=== PATIENT | male | born 1950 | race Caucasian/White ===

== ENCOUNTER 2022-11-19 08:32 | Outpatient (RCR) | payer MEDICARE, SELFPAY | END 2022-11-25 14:00 | disposition home or self-care (01) | LOC: PT 08:32 | PROVIDERS: PCP Family Medicine; Visit Provider Neurological Surgery | DX: M47.812 Spondylosis without myelopathy or radiculopathy, cervical region (principal) | CPT/HCPCS: 97110 ==

== ENCOUNTER 2022-11-20 07:48 | Outpatient (OUT) | payer MEDICARE, SELFPAY ==
--- NOTE | 2022-11-20 11:40 | P.HP_ITS ---
Consult Note: HPI Data of Consult Patient: new to practice Consult date: 11/20/22 Requesting Physician: Tamiko Landa MD Primary Care Provider: Deandre Staley MD Consult Narrative Reason for consult: Neck, low back, leg pain bilaterally Narrative: this is a pleasant 72-year-old gentleman who presents for evaluation. He notes pain throughout his axial neck, as well as low back pain that radiates into the bilateral lower extremities. He notes increasing difficulty with ambulation. He has a history of fusion at C7-T1. He has cervical and lumbar x-rays available for review, which are significant for multilevel degenerative disc disease and facet arthropathy throughout the cervical spine, as well as degenerative changes throughout the lumbar spine. He has tried various medications the past, with varying levels of relief. He is engaged in physical therapy and home exercises, which do not provide relief. He otherwise denies adverse medication side effects or loss of bowel or bladder control. cc:: CC: Tamiko Landa MD Review of Systems ROS Status of ROS 10 or more systems reviewed and unremarkable except as noted in history and below Exam Constitutional: Documenting provider has reviewed patient's vital signs: yes Common normals: no apparent distress and oriented x3 Neck & C-Spine: Other: Tenderness to palpation throughout the cervical spine. Pain is elicited with flexion, extension, and lateral rotation of the cervical spine. Facet loading maneuvers are positive bilaterally. Back & Pelvis: Thoracic spine/upper back: normal to inspection Lumbar spine/lower back: lumbar spinal tenderness and paraspinal muscle tenderness Sacroiliac joints: SI joint(s) abnormal Other: Tenderness to palpation throughout the lumbar spine. Facet loading maneuvers are positive bilaterally. Pain elicited with flexion, extension, and lateral rotation of the lumbar spine. Strength noted to be unremarkable throughout the bilateral lower extremities except for decreased strength rated at 4/5 in the bilateral quadriceps femoris, anterior tibialis. Sensation noted to be unremarkable throughout the bilateral lower extremities except for dysesthesia in the bilateral L3, 4, 5 dermatomal distributions. Coordination intact. Extremity: Common normals: normal to inspection Neuro: Common normals: oriented x3, CN's II-XII intact bilaterally and gait normal Psych: Common normals: mental status grossly normal Assessment and Plan Assessment and Plan (1) Cervical spondylosis: (2) Lumbar stenosis with neurogenic claudication: (3) Cervical postlaminectomy syndrome: Plan This is a pleasant 72yom who presents for evaluation. He has failed physical and medical modalities, as noted above. Imaging was reviewed, as noted above. In te yanick of his neck pain, given his axial neck pain and previous surgery, coupled with his imaging, it is prudent to attempt bilateral C4, 5, 6 medial branch blocks x2 with the intention of proceeding to radiofrequency ablation. He is in agreement with this plan. In terms of his low back and radiating leg pain, it is prudent to obtain a lumbar MRI without contrast to assess for the etiology of his pain. Medications were reviewed. I agree to prescribe [place] 5mg daily prn #15 tablets. He expressed understanding. He will follow up after the imaging and procedure are complete.
== END 2022-11-20 07:49 ==
LOC: PM 07:49
PROVIDERS: PCP Family Medicine; Visit Provider Anesthesiology
DX: M47.812 Spondylosis without myelopathy or radiculopathy, cervical region (principal); M48.062 Spinal stenosis, lumbar region with neurogenic claudication; M96.1 Postlaminectomy syndrome, not elsewhere classified
CPT/HCPCS: G0463

== ENCOUNTER 2022-12-14 08:06 | Day surgery (SDC) | payer MEDICARE, SELFPAY ==
[2022-12-14 08:51] VITALS: BP 166/84; PULSE 57; RESP 16; TEMP 36.5; O2SAT 97
[2022-12-14] MEDS: DEXAMETHASONE SODIUM PHOSPHATE 10 MG/ML VIAL INJ (09:43)
[2022-12-14] MEDS: BUPIVACAINE HCL 0.25% PF 25 MG/10 ML VIAL INJ (09:43)
[2022-12-14] MEDS: LIDOCAINE HCL 2% PF 100 MG/5 ML VIAL INJ (09:43)
--- NOTE | 2022-12-14 09:45 | W.PM.PROCNOT ---
Date of procedure: 12/14/22 Pre-op diagnosis: cervical spondylosis Post-op diagnosis: same Procedure: Bilateral C4, 5, 6 medial branch block Medications: 0.25% 4cc The patient was seen and examined in the preoperative holding area.? The informed consent was obtained and placed on the chart.? The patient was brought to the medical procedure unit and placed in the prone position.? A timeout was completed verifying correct patient, procedure site, positioning, plan, and special equipment.? Using aseptic technique, the needle was placed at left C4.? Under direct fluoroscopic visualization, a Quincke tip needle was advanced to the midpoint of the waist of the articular pillar at the respective medial branch segment. The above-mentioned injectate was placed in a 1 mL aliquot proceeded by negative aspiration.? The needle was removed.? The procedure was completed at all left C5, 6. The same procedure, at the same levels, was then completed on the right side. Insertion site was covered.? Patient was taken to the postprocedural recovery area and monitored for an appropriate length of time before found suitable for discharge in the accompaniment of a responsible adult. Anesthesia: None Surgeon: Tamiko Landa Condition: stable
[2022-12-14 12:15] VITALS: BP 208/88; BP 210/92; PULSE 51; PULSE 53; RESP 18; O2SAT 97; O2SAT 98
== END 2022-12-14 09:49 | disposition home or self-care (01) ==
LOC: SURGOUT 08:07
PROVIDERS: PCP Family Medicine; Visit Provider Anesthesiology
DX: M47.812 Spondylosis without myelopathy or radiculopathy, cervical region (principal)
CPT/HCPCS: 64490; 64491; J1100

== ENCOUNTER 2022-12-28 07:05 | Day surgery (SDC) | payer MEDICARE, SELFPAY ==
[2022-12-28 07:25] VITALS: BP 177/94; PULSE 53; RESP 16; TEMP 36.6; O2SAT 98
[2022-12-28] MEDS: BUPIVACAINE HCL 0.25% PF 25 MG/10 ML VIAL INJ (07:53)
[2022-12-28] MEDS: DEXAMETHASONE SODIUM PHOSPHATE 10 MG/ML VIAL INJ (07:54)
[2022-12-28] MEDS: LIDOCAINE HCL 2% PF 100 MG/5 ML VIAL INJ (07:54)
--- NOTE | 2022-12-28 07:56 | W.PM.PROCNOT ---
Date of procedure: 12/28/22 Pre-op diagnosis: cervical spondylosis Post-op diagnosis: same Procedure: Procedure: Bilateral C4-5, C5-6 medial branch block Medications: Bupivacaine 0.25% 4cc The patient was seen and examined in the preoperative holding area.? The informed consent was obtained and placed on the chart.? The patient was brought to the medical procedure unit and placed in the prone position.? A timeout was completed verifying correct patient, procedure site, positioning, plan, and special equipment.? Using aseptic technique, the needle was placed at left C4.? Under direct fluoroscopic visualization, a Quincke tip needle was advanced to the midpoint of the waist of the articular pillar at the respective medial branch segment. The above-mentioned injectate was placed in a 1 mL aliquot proceeded by negative aspiration.? The needle was removed.? The procedure was completed at all left C5, 6. The same procedure, at the same levels, was then completed on the right side. Insertion site was covered.? Patient was taken to the postprocedural recovery area and monitored for an appropriate length of time before found suitable for discharge in the accompaniment of a responsible adult. Anesthesia: None Surgeon: Tamiko Landa Condition: stable
[2022-12-28 09:25] VITALS: BP 179/81; BP 179/84; PULSE 50; PULSE 56; RESP 18; O2SAT 98
== END 2022-12-28 08:01 ==
LOC: SURGOUT 07:06
PROVIDERS: PCP Family Medicine; Visit Provider Anesthesiology
DX: M47.812 Spondylosis without myelopathy or radiculopathy, cervical region (principal)
CPT/HCPCS: 64490; 64491; J1100

== ENCOUNTER 2023-01-11 07:54 | Outpatient (OUT) | payer MEDICARE, SELFPAY ==
[2023-01-11 09:13] LABS: Basophils Percent Auto 0.5 % (0.2-2.0); Eosinophils Absolute Auto 0.1 10^3/uL (0.0-0.7); Hematocrit 40.4 % (42.0-54.0); Hemoglobin 13.2 g/dL (14.0-18.0); Immature Granulocytes Abs Auto 0.03 10^3/uL (0.00-0.03); Immature Granulocytes Pct Auto 0.5 % (0.0-0.5); Lymphocytes Absolute Auto 1.6 10^3/uL (1.2-3.8); Lymphocytes Percent Auto 26.9 % (20.5-60.0); Mean Corpuscular HGB Conc 32.7 g/dL (29.9-35.2); Mean Corpuscular Hemoglobin 30.1 pg (25.9-34.0); Mean Platelet Volume 10.2 fL (9.5-13.5); Monocytes Absolute Auto 0.6 10^3/uL (0.3-0.8); Monocytes Percent Auto 9.5 % (1.7-12.0); Neutrophils Absolute Auto 3.7 10^3/uL (1.4-6.5); Neutrophils Percent Auto 60.6 % (43.0-75.0); Platelet Count 245 10^3/uL (150-450); Red Blood Count 4.39 10^6/uL (4.70-6.10); Red Cell Distribution Width 13.4 % (11.0-15.0); White Blood Count 6.1 10^3/uL (4.0-11.0)
[2023-01-11 09:24] LABS: Anion Gap 9.6; BUN Creatinine Ratio 15.7; Calcium 9.1 mg/dL (8.5-10.1); Carbon Dioxide 28.6 mmol/L (21.0-32.0); Chloride 105 mmol/L (98-107); Estimated GFR (African America >60 (>=60); Estimated GFR (Non-African Ame >60 (>=60); Glucose 120 mg/dL (74-106); Potassium 4.2 mmol/L (3.5-5.1); Sodium 139 mmol/L (136-145)
[2023-01-11 09:34] LABS: INR 0.95; Partial Thromboplastin Time 32.6 sec (22.3-36.2); Prothrombin Time 10.1 sec (9.0-11.6)
== END 2023-01-11 07:55 | disposition home or self-care (01) ==
LOC: PST 07:55
PROVIDERS: PCP Family Medicine; Visit Provider Urology
DX: Z01.812 Encounter for preprocedural laboratory examination (principal); Z01.810 Encounter for preprocedural cardiovascular examination; N32.89 Other specified disorders of bladder; Z85.46 Personal history of malignant neoplasm of prostate; Z85.51 Personal history of malignant neoplasm of bladder; K21.9 Gastro-esophageal reflux disease without esophagitis; N52.9 Male erectile dysfunction, unspecified; I10 Essential (primary) hypertension
CPT/HCPCS: 36415; 80048; 85025; 85610; 85730

== ENCOUNTER 2023-01-14 08:51 | Day surgery (SDC) | payer MEDICARE, SELFPAY ==
[2023-01-11 08:24] VITALS: BP 131/74; PULSE 55; RESP 14; TEMP 36.4; O2SAT 96; BMI 24.8
[2023-01-14] VITALS (28 sets, daily range): BP systolic 111–204; BP diastolic 68–96; PULSE 43–73; RESP 8–22; TEMP 36.2–36.9; O2SAT 9–99
[2023-01-14] MEDS: LACTATED RINGER'S SOLUTION 1,000 ML 50 ML IV (09:22)
[2023-01-14] MEDS: CEFAZOLIN SODIUM/DEXTROSE,ISO 1 GM/50 ML IV.SOLN IV ×3 (09:24→22:56)
--- NOTE | 2023-01-14 11:00 | PM.URSON ---
Urology Surgery Operative Note Operative Note Procedure Date: 01/14/23 Time Out Performed: yes Pre-op Diagnosis: necrotic bladder lesions Post-op Diagnosis: same Procedures performed: #1. Cystoscopy. #2. Transurethral resection of bladder lesions greater than 6 cm. Anesthesia: GETA Primary Surgeon: Brian Carrington Complications: non- Estimated blood loss (mL): 5 Findings: persistent necrotic areasfrom prior resection sites Specimens: bladder lesions Drains: 20 [place] catheter in the bladder Indications for Procedures: this gentleman had a TURBT in January 2022. The path on that was noninvasive high-grade urothelial carcinoma. On recent surveillance cystoscopy, nearly 10 months postop, the patient has rather dramatic necrotic areas over the prior resection sites along with some new red areas. He now presents for cystoscopy and transurethral resection of bladder lesions. He has signed an informed consent for these procedures after all the risks were explained to him. Some of them include bleeding, infection, anesthesia, bladder perforation and possible need for further operations to name a few. Detailed description of Procedure: The patient was brought to the operating room and placed on the operating room table in the supine position. SCDs were placed on the lower extremities and turned on and functioning during the entire case. Timeout was done by all parties in the room. We all agreed upon the patient's identification and the planned procedures for this patient. Genn. anesthesia was then administeredvia the endotracheal route with paralysis. The patient was then repositioned into the modified dorsal lithotomy position. All pressure points were satisfactorily padded. Genitalia were sterilely prepped and draped in usual fashion. At this time I then passed a 26 Lebanese Olympus resectoscope with the visual obturator through the urethra and into the bladder. The obturator was removed. The resectoscope with resecting element was then placed. I then carefully looked at the entire bladder and found no new tumors. All of the prior resection sites had rather thick necrotic tissue within them. I then very carefully uniformly resected these necrotic areas. All of the tissue was sent for permanent sections labeled bladder lesions. Once all the necrotic tissue was removed I then coagulated the resection beds. A couple new red areas along the edges of prior resection beds were resected also. The ureteral orifices were untouched. Upon completion the [employer] evacuator was used numerous times to get all the pieces out and sent for pathology. Our last image revealed no evidence of bleeding. No evidence of any necrotic lesions remaining. The scope was then removed. I then placed a 20 [place] catheter in the bladder and 10 mL of fluid was placed in the balloon. It drained clear. The anesthetic was then reversed. He was then transferred to a [facility] bed and wheeled tto PACU in stable condition. He'll be discharged to home later today with a prescription for Keflex 500 twice a day for a week.
--- NOTE | 2023-01-14 12:42 | PC.NURSE ---
URINE IN GONZALEZ LEG BAG PEACOCK RED IN COLOR AND EMPTIED AT THIS TIME; C/O LOWER ABDOMINAL PRESSURE AND NO ACTIVE URINE DRAINAGE NOTED; DR. MORALES INFORMED AND ORDER RECEIVED TO IRRIGATE
--- NOTE | 2023-01-14 12:47 | PC.NURSE ---
Mills irrigated with 120cc normal saline at intervals with return of numerous stringy clots and return of fluid watermelon in color; new leg bag applied due to large clot at insertion site of previous bag; states that bladder pressure has lessened
--- NOTE | 2023-01-14 12:53 | PC.NURSE ---
Leg bag draining watermelon colored urine; no clots noted; no c/o bladder pressure
--- NOTE | 2023-01-14 13:16 | PC.NURSE ---
Lynn red urine noted in leg bag and emptied at this time. Irrigated easily with 60cc saline with return of same amount and quarter size stringy clot noted; procedure tolerated well; neither pt nor his comfortable with him being discharged until being evaluated by Dr. Carrington.
--- NOTE | 2023-01-14 13:51 | PC.NURSE ---
Leg bag switched to 2000cc muhammad bag; veloz red urine; irrigates easily with return of same amount and tolerates well; muhammad bag emptied; clots noted; drinking H2O without nausea; anesthesia notified of elevated blood pressure; no orders received at this time; waiting for Dr. Carrington to get out of surgery
--- NOTE | 2023-01-14 14:31 | PC.NURSE ---
made aware of pt and concerns regarding pts urine color. Per he will speak with the pt and his .
--- NOTE | 2023-01-14 15:02 | PC.NURSE ---
pts muhammad emptied for 850mls of dark red urine,mucous noted but no clots.
--- NOTE | 2023-01-14 16:37 | PC.NURSE ---
The keno writer/runner went into the pts room with , assessed pt and decided to place a new catheter so the pt can be connected to CBI. the keno writer/runner assisted in placing the 22Fr 3-way coude with CBI. pt tolerated well without complaints,once muhammad was placed irrigated the muhammad and connected the pt to CBI. pts urine at the initial time was veloz red with no clots noted. CBI running with no issues per keep pt for 30 minutes to monitor and then transfer pt to the floor for an overnight stay. cath secure was applied,before transferring pt to the floor muhammad was emptied for 1650 of clear,watermelon colored urine and 1800mls of irrigation was in at the time of transfer. pt was transferred to Med/Surg room 213 at 1613 and report was given to NATHALIE Stuart. pt had no complaints at the time of transfer.
--- NOTE | 2023-01-14 17:16 | PC.NURSE ---
Patient's BP is elevated at 184/92. Called Dr. Sevilla's at 1710. He returned the call at 1714. Order was given to take his dose of coreg at this time and recheck his blood pressure.
[2023-01-14] MEDS: SOLIFENACIN SUCCINATE 10 MG TABLET PO (17:22)
[2023-01-14] MEDS: CARVEDILOL 25 MG TABLET PO (17:22)
[2023-01-14] MEDS: 0.9 % SODIUM CHLORIDE 1,000 ML 80 ML IV (17:35)
[2023-01-14] MEDS: SODIUM CHLORIDE IRRIG SOLUTION 3,000 ML 999 ML IRR ×9 (17:38→23:50)
[2023-01-14] MEDS: HYDRALAZINE HCL 20 MG/ML VIAL 10 MG IVP (19:15)
[2023-01-14] MEDS: ALBUTEROL SULFATE 2.5 MG/3 ML VIAL NEB IH (21:21)
[2023-01-14] MEDS: BUDESONIDE 0.5 MG/2 ML AMPULE NEB IH (21:22)
[2023-01-14] MEDS: SODIUM CHLORIDE IRRIG SOLUTION 3,000 ML 3000 ML IRR (22:08)
[2023-01-14] MEDS: DICLOFENAC SODIUM 25 MG TABLET.DR 75 MG PO (22:54)
[2023-01-15] VITALS: BP 157/75
--- NOTE | 2023-01-15 00:03 | PC.NURSE ---
pt muhammad bag is running clear at this time, pt tolerating cath well, no pain or discomfort reported.
[2023-01-15 01:45] VITALS: BP 155/78
--- NOTE | 2023-01-15 02:01 | PC.NURSE ---
upon dumping muhammad bag, seen two small clots @ 1-2mm in diameter in muhammad, irrigate Muhammad per orders
[2023-01-15] MEDS: SODIUM CHLORIDE IRRIG SOLUTION 3,000 ML 999 ML IRR ×2 (02:30→02:38)
--- NOTE | 2023-01-15 03:45 | PC.NURSE ---
pt muhammad is clearing up, turning more clear as time passes, no more clots
--- NOTE | 2023-01-15 04:48 | PC.NURSE ---
pt muhammad had a very light shade of pink, no clots at this time
[2023-01-15] MEDS: ALBUTEROL SULFATE 2.5 MG/3 ML VIAL NEB IH (04:58)
[2023-01-15 05:00] VITALS: BP 160/87; BP 162/87; PULSE 63; RESP 16; TEMP 36.5; O2SAT 96
[2023-01-15 06:22] VITALS: PULSE 69; RESP 18; O2SAT 95
--- NOTE | 2023-01-15 07:51 | PM.PN ---
Progress Note: Subjective Subjective Interval history: Stepped in to see patient secondary to bradycardia and hypertension. Exam Constitutional Vital Signs, click to edit/add: Last Vital Signs Temp 97.7 F 01/15/23 05:00 Pulse 69 01/15/23 06:22 Resp 18 01/15/23 06:22 BP 160/87 H 01/15/23 05:00 Pulse Ox 95 01/15/23 06:22 O2 Del Method Room Air 01/15/23 06:22 Chest Common normals: inspection of chest normal Respiratory Common normals: normal respiratory effort Cardio Common normals: regular rate, regular rhythm and no murmurs GI Common normals: Normal to inspection, nondistended, normoactive bowel sounds present Neuro Common normals: oriented x3 and CN's II-XII intact bilaterally Progress Note: A&P Assessment and Plan (1) Hypertension: Assessment and Plan: Patient with significant high blood pressure overnight. Did have bradycardia as well. On initial admission. So beta-blockers were held. We will change patient to Norvasc 5 mg once a day. Persist that as an outpatient and see me in the office next week for follow-up.
--- NOTE | 2023-01-15 08:17 | PC.NURSE ---
pt up inn chair, ambulated well, no pain but some spasming, clear to go if leg bag stays clear to watermelon in color, appointment to be set one week out per physician
[2023-01-15] MEDS: OMEPRAZOLE 40 MG CAPSULE.DR PO (09:40)
[2023-01-15] MEDS: AMLODIPINE BESYLATE 5 MG TABLET PO (09:40)
[2023-01-15] MEDS: DICLOFENAC SODIUM 25 MG TABLET.DR 75 MG PO (09:41)
[2023-01-15] MEDS: SOLIFENACIN SUCCINATE 10 MG TABLET PO (09:42)
[2023-01-15] MEDS: LOSARTAN POTASSIUM 25 MG TABLET 75 MG PO (09:42)
== END 2023-01-15 10:05 | disposition home or self-care (01) ==
LOC: SURGOUT 10:58 → MS 16:20
PROVIDERS: PCP Family Medicine; Visit Provider Urology
PROC: (CPT 52240; principal; 2023-01-14 10:30)
DX: N32.89 Other specified disorders of bladder (principal); Z85.51 Personal history of malignant neoplasm of bladder; I10 Essential (primary) hypertension; M19.90 Unspecified osteoarthritis, unspecified site; K21.9 Gastro-esophageal reflux disease without esophagitis; Z87.442 Personal history of urinary calculi; Z85.46 Personal history of malignant neoplasm of prostate; Z87.891 Personal history of nicotine dependence; Z98.1 Arthrodesis status; Z90.79 Acquired absence of other genital organ(s); Z79.899 Other long term (current) drug therapy
CPT/HCPCS: 52240; 36415; 88307; 94640; 94761; 96365; J2704

== ENCOUNTER 2023-01-28 11:25 | Outpatient (OUT) | payer MEDICARE, SELFPAY ==
--- NOTE | 2023-01-28 11:39 | PM.CN ---
Consult Note: HPI Data of Consult Patient: known to practice within the last 3 years Consult date: 01/28/23 Requesting Physician: ALEX CHIRINOS NP Primary Care Provider: Deandre Staley MD Consult Narrative Narrative: Patient is here for f/u of chronic neck pain. and second dx MBB cervical bilat C4, 5, 6 done 12/28/22 . He recieved 80% relief of pain with increased fx and ROM of neck after procedure for several hours. He would like to proceed with RFA of same area. Will start with right side since pain R>L. Pain today is bikat neck worse with ROM. No radicular sx, pain axial in nature . Denies new sensorimotor or bowel or bladder issues. He was given norco at last visit and states it helped his pain. Denies medication adverse SE. Pain medication regimen assists patient in better ability to complete ADLs. cc:: CC: ALEX CHIRINOS NP Review of Systems ROS Status of ROS 10 or more systems reviewed and unremarkable except as noted in history and below Musculoskeletal Reports: neck pain PFSH PFSH Medical History Surgical History Family History Other Family history of diabetes mellitus Family history of hypertension Social History Within the past year, how often did you have a drink containing alcohol: 2-4 times a month Smoking status: Former smoker Meds Home Medications and Allergies Home Medications Medication Instructions Recorded Confirmed Type carvedilol 25 mg tablet 25 mg PO BID 11/20/22 01/14/23 History diclofenac sodium 75 mg 75 mg PO BID 11/20/22 01/14/23 History tablet,delayed release fluticasone fur. 100 mcg-umeclid 1 inh inhalation DAILY 11/20/22 01/14/23 History 62.5 mcg-vilant 25 mcg inhalat.powder (Trelegy Ellipta) olmesartan 40 mg tablet 40 mg PO DAILY 11/20/22 01/14/23 History pantoprazole 40 mg tablet,delayed 40 mg PO DAILY 11/20/22 01/14/23 History release cephalexin 500 mg capsule 500 mg PO BID 7 days #14 caps 01/14/23 Rx amlodipine 5 mg tablet (Norvasc) 5 mg PO DAILY #30 tabs 01/15/23 Rx Allergies Allergy/AdvReac Type Severity Reaction Status Date / Time codeine Allergy Unknown Hives Verified 01/11/23 08:21 acetaminophen [From Percocet] AdvReac ineffective Verified 01/11/23 08:21 oxycodone [From Percocet] AdvReac ineffective Verified 01/11/23 08:21 Exam Constitutional Documenting provider has reviewed patient's vital signs: yes Common normals: no apparent distress, average body habitus, oriented x3, no limitations, healthy appearing, alert and well nourished General appearance: cooperative, comfortable and well developed Orientation/consciousness: Yes awake, Yes oriented to person, Yes oriented to place and Yes oriented to time HENDC Common normals: normocephalic and moist oral mucous membranes Neck & C-Spine Common normals: supple General: normal visual inspection and trachea midline Cervical spine: pain with cervical ROM, cervical spine tenderness, paracervical muscle tenderness and paracervical muscle spasm Other: no arm drift muscle strength bilat UE 5/5 with intact sensation axial pain with ROM Respiratory Common normals: normal respiratory effort, no retractions and no use of accessory muscles Effort & inspection: able to speak in complete sentences and symmetric chest movement Extremity Common normals: normal to inspection, full ROM and normal capillary refill Assessment and Plan Assessment and Plan (1) Cervical spondylosis: (2) Lumbar stenosis with neurogenic claudication: (3) Cervical postlaminectomy syndrome: Plan schedule for thermal RFA right cervical C 4/5, C5/6 under fluoroscopy with valium 5mg PO preprocedure. Will schedule left side after. narcan rx norco rx
== END 2023-01-28 11:26 | disposition home or self-care (01) ==
PROVIDERS: PCP Family Medicine; Visit Provider Nurse Practitioner
DX: M47.812 Spondylosis without myelopathy or radiculopathy, cervical region (principal); M96.1 Postlaminectomy syndrome, not elsewhere classified; M48.062 Spinal stenosis, lumbar region with neurogenic claudication
CPT/HCPCS: G0463

== ENCOUNTER 2023-03-02 13:27 | Outpatient (OUT) | payer MEDICARE, SELFPAY | END 2023-03-02 13:28 | disposition home or self-care (01) | LOC: PST 13:28 | PROVIDERS: PCP Family Medicine; Visit Provider Surgery | DX: Z01.818 Encounter for other preprocedural examination (principal); Z86.010 Personal history of colon polyps; R19.4 Change in bowel habit; K21.9 Gastro-esophageal reflux disease without esophagitis; D50.9 Iron deficiency anemia, unspecified ==

== ENCOUNTER 2023-03-10 06:31 | Day surgery (SDC) | payer MEDICARE, SELFPAY ==
--- NOTE | 2023-03-10 | OP_ITS ---
OPERATION DATE: ??03/10/2023 PREOPERATIVE DIAGNOSIS:? Personal history of colon polyps as well as gastroesophageal reflux disease. POSTOPERATIVE DIAGNOSIS:? Small, sliding type hiatal hernia and sigmoid diverticulosis. PROCEDURE:? EGD and colonoscopy to cecum. SURGEON:? Qamar Luis M.D. ANESTHESIA:? Monitored anesthesia care. ESTIMATED BLOOD LOSS:? Zero. INDICATIONS AND CONSENT:? Patient is a 73-year-old male with a personal history of gastroesophageal reflux disease, as well as personal history of colon polyps.? Indications, risks, benefits, alternatives of proceeding with EGD and colonoscopy were explained extensively to the patient, including the risks of bleeding, aspiration, esophageal/gastric/duodenal or colonic perforation or anesthetic complications.? All of his questions were answered.? Informed consent was obtained. PROCEDURE:? Patient brought to the operating room, placed in the left lateral decubitus position.? Monitored anesthesia care was provided.? Bite block was placed in the patient?s mouth.? Scope was entered into the oropharynx.? Under direct visualization, it was advanced into the esophagus, past the cricopharyngeus, down to the stomach.? The stomach was insufflated with air.? The pylorus was traversed down to the descending portion of the duodenum.? There was no evidence of duodenitis or ulceration.? There was no scarring within the pyloric channel.?? Scope was pulled back into the stomach and retroflexed.? There was noted to be a small, sliding type hiatal hernia.? No gastric mucosal abnormalities.? The GE junction was noted at approximately 36 cm.? There was approximately a 4 cm sliding type hiatal hernia.? There was no distal esophagitis or Mallory?s changes. Remainder of the esophagus was unremarkable.? The scope was then withdrawn.? Patient tolerated procedure well, was then positioned for colonoscopy.? Rectal exam was performed, which showed no masses or blood.? The scope was then inserted into the anal canal.? Under direct visualization, it was advanced.? With the aid of abdominal compression, it was advanced to the cecum where cecal markings were clearly identified.? Upon withdrawal of the scope, mucosal surfaces were carefully examined.? There was noted to be a good prep.? There were no mass lesions or polyps noted.? No inflammatory changes or ulcerations.? There was moderate sigmoid diverticulosis without inflammatory changes or scarring.? The scope was retroflexed in the anal canal.? There were prominent rectal veins, no significant hemorrhoidal disease.? The scope was then withdrawn.? The patient tolerated procedure well, was sent to recovery room in good condition. f/u colonoscopy in 5 years CC:? Deandre Staley M.D. [facility]
[2023-03-10 06:44] VITALS: BP 160/96; PULSE 85; RESP 16; TEMP 36.1; O2SAT 96; BMI 23.4
[2023-03-10] MEDS: LACTATED RINGER'S SOLUTION 1,000 ML 50 ML IV (06:51)
[2023-03-10 07:51] VITALS: BP 106/76; PULSE 78; RESP 16; TEMP 35.8; O2SAT 98
[2023-03-10 08:06] VITALS: BP 140/83; PULSE 74; RESP 16; O2SAT 96
[2023-03-10 08:20] VITALS: BP 180/76; PULSE 76; RESP 46; O2SAT 96
== END 2023-03-10 08:22 | disposition home or self-care (01) ==
PROVIDERS: PCP Family Medicine; Visit Provider Surgery
PROC: (CPT 43235; principal; 2023-03-10 07:30)
DX: Z86.010 Personal history of colon polyps (principal); R19.4 Change in bowel habit; K21.9 Gastro-esophageal reflux disease without esophagitis; D50.9 Iron deficiency anemia, unspecified; K44.9 Diaphragmatic hernia without obstruction or gangrene; K57.30 Diverticulosis of large intestine without perforation or abscess without bleeding; Z87.891 Personal history of nicotine dependence; C67.9 Malignant neoplasm of bladder, unspecified; I10 Essential (primary) hypertension; J44.9 Chronic obstructive pulmonary disease, unspecified; Z79.899 Other long term (current) drug therapy
CPT/HCPCS: 43235; 45378; J2704

== ENCOUNTER 2023-03-15 09:41 | Day surgery (SDC) | payer MEDICARE, SELFPAY ==
[2023-03-15 10:19] VITALS: BP 180/88; PULSE 59; RESP 16; TEMP 36.3; O2SAT 97
[2023-03-15] MEDS: DEXAMETHASONE SODIUM PHOSPHATE 10 MG/ML VIAL INJ (11:04)
[2023-03-15] MEDS: BUPIVACAINE HCL 0.25% PF 25 MG/10 ML VIAL INJ (11:04)
[2023-03-15 11:05] VITALS: BP 180/80; PULSE 56; RESP 18; O2SAT 95
[2023-03-15] MEDS: LIDOCAINE HCL 2% 400 MG/20 ML MDV 15 ML INJ (11:05)
[2023-03-15 11:11] VITALS: BP 173/81; PULSE 58; RESP 18; O2SAT 98
--- NOTE | 2023-03-15 11:14 | P.ON_ITS ---
Date of procedure: 03/15/23 Pre-op diagnosis: Cervical spondylosis Post-op diagnosis: same as pre-op Procedure: Procedure: Right C4-5, C5-6 radiofrequency ablation Medications: Bupivacaine 0.25% 3cc, lidocaine 1% 3cc, dexamethasone 10mg The patient was seen and examined in the preoperative holding area.? The site was marked.? Written informed consent was obtained and placed on the chart.? The patient was brought to the medical procedure unit and placed in the prone position.? A timeout was completed verifying correct patient, procedure, positioning, and special requirements.? The skin overlying the target points, the designated medial branch, were prepped and draped in the usual sterile fashion.? The target point was achieved with a 20-gauge 15 cm with a 10 mm curved active tip radiofrequency cannula under direct fluoroscopic visualization.? The needle was inserted at level C4 on the right side. Needle tip position was confirmed with lateral fluoroscopic position.? Motor stimulation was carried out at 2 Hz up to 5 volts with the absence of extremity activity.? This was repeated at level C5, 6 on right side.?? Sensory stimulation was carried out.? Concordant pain was realized at the above- mentioned sites.? Then radiofrequency lesioning was carried out times 90 seconds at 80 degrees times 2 lesions at each level.? The radiofrequency probe was removed prior to cannula removal.? The above-mentioned injectate was placed in 1 mL increments.? The needle was removed.? Insertion sites were covered.? The patient was taken to the postoperative recovery area and monitored for an appropriate length of time before being found suitable for discharge in the company of a responsible adult. Anesthesia: Local Surgeon: Tamiko Landa Pathology: none sent Condition: stable Disposition: no change
== END 2023-03-15 11:16 | disposition home or self-care (01) ==
PROVIDERS: PCP Family Medicine; Visit Provider Anesthesiology
DX: M47.812 Spondylosis without myelopathy or radiculopathy, cervical region (principal)
CPT/HCPCS: 64633; 64634; J1100

== ENCOUNTER 2023-04-21 09:07 | Outpatient (OUT) | payer MEDICARE, SELFPAY ==
--- NOTE | 2023-04-21 09:50 | PM.CN ---
Consult Note: HPI Data of Consult Patient: known to practice within the last 3 years Requesting Physician: Erin Shelton NP Primary Care Provider: Deandre Staley MD Consult Narrative Reason for consult: f/u Narrative: Ryder Durant a pleasant 73 year old male presents for evaluation and management of chronic neck pain, today rating pain 2-3/10. Reporting 50% overall pain relief and functional improvement after right C4/5 5/6 thermal RFA. Doing well on current medication regimen. 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 - Other specified disorders of bladder (ICD-10) COPD (chronic obstructive pulmonary disease) ?J44.9 - Chronic obstructive pulmonary disease, unspecified (ICD-10) Former smoker ?Z87.891 - Personal history of nicotine dependence (ICD-10) Hearing deficit ?H91.90 - Unspecified hearing loss, unspecified ear (ICD-10) Hypertension ?I10 - Essential (primary) hypertension (ICD-10) Low back pain ?M54.50 - Low back pain, unspecified (ICD-10) Neck pain ?M54.2 - Cervicalgia (ICD-10) Osteoarthritis ?M19.90 - Unspecified osteoarthritis, unspecified site (ICD-10) Prostate cancer ?C61 - Malignant neoplasm of prostate (ICD-10) Surgical History H/O prostatectomy ?Z90.79 - Acquired absence of other genital organ(s) (ICD-10) H/O shoulder surgery ?Z98.890 - Other specified postprocedural states (ICD-10) H/O transurethral resection of bladder tumor (TURBT) ?Z98.890 - Other specified postprocedural states (ICD-10) ?Z86.03 - Personal history of neoplasm of uncertain behavior (ICD-10) H/O transurethral resection of bladder tumor (TURBT) ?Z98.890 - Other specified postprocedural states (ICD-10) ?Z86.03 - Personal history of neoplasm of uncertain behavior (ICD-10) History of ankle surgery ?Z98.890 - Other specified postprocedural states (ICD-10) History of appendectomy ?Z90.49 - Acquired absence of other specified parts of digestive tract (ICD-10) History of arthroscopy of knee ?Z98.890 - Other specified postprocedural states (ICD-10) History of colonoscopy ?Z98.890 - Other specified postprocedural states (ICD-10) History of foot surgery ?Z98.890 - Other specified postprocedural states (ICD-10) History of hernia repair ?Z98.890 - Other specified postprocedural states (ICD-10) ?Z87.19 - Personal history of other diseases of the digestive system (ICD-10) S/P cervical spinal fusion ?Z98.1 - Arthrodesis status (ICD-10) S/P cystoscopy ?Z98.890 - Other specified postprocedural states (ICD-10) Family History Other Depression Family history of diabetes mellitus Family history of hypertension Social History Within the past year, how often did you have a drink containing alcohol: 2-4 times a month Smoking status: Former smoker Non-prescribed substance use: denies use Previous occupational history: retired Highest level of school completed/degree received: Associate degree: occupational, technical, vocational program Meds Home Medications and Allergies Home Medications Medication Instructions Recorded Confirmed Type diclofenac sodium 75 mg 75 mg PO BID 11/20/22 03/15/23 History tablet,delayed release fluticasone fur. 100 mcg-umeclid 1 inh inhalation DAILY 11/20/22 03/15/23 History 62.5 mcg-vilant 25 mcg inhalat.powder (Trelegy Ellipta) pantoprazole 40 mg tablet,delayed 40 mg PO DAILY 11/20/22 03/15/23 History release amlodipine 5 mg tablet (Norvasc) 5 mg PO DAILY #30 tabs 01/15/23 03/15/23 Rx hydrocodone 5 mg-acetaminophen 325 1 tab PO DAILY 01/28/23 03/15/23 History mg tablet tizanidine 4 mg capsule 4 mg PO BID PRN muscle spasticity 03/02/23 03/15/23 History amlodipine 5 mg tablet 5 mg PO DAILY 03/15/23 03/15/23 History hydrocodone 5 mg-acetaminophen 325 1 tab PO DAILY PRN pain #30 tabs 03/25/23 Rx mg tablet Allergies Allergy/AdvReac Type Severity Reaction Status Date / Time codeine Allergy Unknown Hives Verified 03/15/23 10:17 acetaminophen [From Percocet] AdvReac ineffective Verified 03/15/23 10:17 oxycodone [From Percocet] AdvReac ineffective Verified 03/15/23 10:17 Exam Constitutional Documenting provider has reviewed patient's vital signs: yes Common normals: no apparent distress, oriented x3, healthy appearing, alert and well nourished General appearance: cooperative Orientation/consciousness: Yes awake, Yes oriented to person, Yes oriented to place and Yes oriented to time HENNE Common normals: normocephalic, hearing grossly normal bilaterally and moist oral mucous membranes Head and scalp: normocephalic Eye Common normals: PERRL Pupil: PERRL Neck & C-Spine Common normals: full ROM General: normal visual inspection Cervical spine: pain with cervical ROM, cervical spine tenderness, paracervical muscle tenderness and paracervical muscle spasm Other: no arm drift muscle strength bilat UE 5/5 with intact sensation axial pain with ROM Chest Common normals: inspection of chest normal Respiratory Common normals: normal respiratory effort, no retractions and no use of accessory muscles Effort & inspection: able to speak in complete sentences and symmetric chest movement Extremity Common normals: normal to inspection, full ROM and normal capillary refill Neuro Common normals: oriented x3, CN's II-XII intact bilaterally, moves all extremities, no focal motor deficits, no sensory deficits noted and deep tendon reflexes 2+ bilaterally Sensorium/orientation: alert Motor exam: strength 5/5 throughout and no movement abnormalities noted Psych Common normals: mental status grossly normal, thought process normal, cooperative, affect normal, speech normal and activity/motor behavior normal Speech: normal speech Thought process: normal thought process Results Additional Findings Additional findings: I have checked an [place] report on this patient today and there are no aberrancies noted in the prescribing history.?? A drug screen was completed and reviewed within the last year, and if there has not been a drug screen completed we ordered one today to monitor higher risk, state monitored pain medication use. As part of providing excellent, safe, comprehensive care, the following was completed at our patient's visit: 1. A medication reconciliation and review to ensure accurate knowledge of current/active medications, including asking our patients to inform us about any [id number] medications or herbal remedies/nutritional supplements/alternative remedies. 2. A review to specifically ensure our patients have had annual screening for: elevated body mass index (BMI), tobacco use, screening for depression, and screening for unhealthy alcohol use. When screening is concerning, patients are provided with education and the specific recommendation to discuss the concerning health issue and treatment options with their primary care provider. Assessment and Plan Assessment and Plan (1) Cervical spondylosis: (2) Cervical postlaminectomy syndrome: (3) Muscle spasm: (4) Chronic prescription opiate use: Assessment and Plan: I feel these medications are improving the patient's quality of life and allow them to tolerate activities of daily living as well as participate in recreational activity.? The patient does not report intolerable side effects. The patient is NOT opioid naive and non-pharmacologic and non-opioid treatment has failed to significantly relieve the patient's pain and improve functionality. The patient has a diagnosis that is related to a somatic or visceral pain etiology. ? ?? I reviewed with the patient the potential risks and side effects with the use of? opioid medications including but not limited to respiratory depression,? sedation, and even . I verified the patient has access to naloxone should? these effects occur. I advised the patient to avoid the use of any other? sedation substances including alcohol, THC, and benzodiazepines while? taking opioid medications due to the risk of compounding side effects and? detrimental outcomes. I reviewed the [employer], pain treatment agreement, urine? drug screen, and opioid start talking forms. The patient was advised to let? their family know they had Naloxone in case they would need to administer? the medication.? ?? A drug screen was completed within the last year, and no aberrancies were noted regarding their use of controlled substances. The patient understands they are subject to the terms and conditions of the pain contract that they have signed. ? ?? I have checked an [place] report on this patient today and there are no aberrancies noted in the prescribing history.? Plan start methocarbamol 500-1000mg PRN Daytime muscle spasms, not to be used with prn tizanidine at night as discussed today continue PRN norco 5-325 mg QD PRN moderate to severe pain f/u 3 months
== END 2023-04-21 09:08 | disposition home or self-care (01) ==
LOC: PM 09:14
PROVIDERS: PCP Family Medicine; Visit Provider Nurse Practitioner
DX: M47.812 Spondylosis without myelopathy or radiculopathy, cervical region (principal); M96.1 Postlaminectomy syndrome, not elsewhere classified; M62.838 Other muscle spasm; Z79.891 Long term (current) use of opiate analgesic
CPT/HCPCS: G0463

== ENCOUNTER 2023-07-19 09:30 | Outpatient (OUT) | payer MEDICARE, SELFPAY ==
--- OUTSIDE RECORDS SUMMARY | 2023-07-15 10:31 | XMS_ITS | CCD ---
Author Name Unknown Address [address] [place] [address] Organization [facility] Care Team Providers Care Health Therapist Name Role Phone MD Yolande Staley Primary Care Provider [phone] MD Lionel Carrington Attending Provider Yolande Staley Primary Care Physician Leidy Plummer Unavailable Unavailable MD Yolande Staley Primary Care Provider [phone] MD Lionel Carrington Attending Provider [phone] Zoran Chavez Unavailable SHARON, DR VILLEGAS Admitting Unavailable ABBRADHA, DR VILLEGAS Attending Unavailable HOY ., DR LANIER Primary Care Unavailable ABBRADHA, DR VILLEGAS Consulting Unavailable HOY ., DR LANIER Primary Care Unavailable CARRINGTON ., DR FLOWERS Consulting Unavailable CARRINGTON ., DR FLOWERS Admitting Unavailable CARRINGTON ., DR FLOWERS Attending Unavailable GIEDRAITIS, ANDRIUS Admitting Unavailable HOY ., DR LANIER Primary Care Unavailable GIEDRAITIS, ANDRIUS Attending Unavailable HOY ., DR LANIER Primary Care Unavailable CARRINGTON ., DR FLOWERS Consulting Unavailable CARRINGTON ., DR FLOWERS Admitting Unavailable CARRINGTON ., DR FLOWERS Attending Unavailable SCOTT, DR MEEHAN Admitting Unavailable SCOTT, DR MEEHAN Attending Unavailable SEBASTIAN, DR ALLI Burgos Consulting Unavailable HOY ., DR LANIER Primary Care Unavailable JAMAICA GONZALEZ Consulting Unavailable DR ZORAN CHAVEZ Consulting Unavailable HOReggie ., DR LANIER Consulting Unavailable HOY ., DR LANIER Admitting Unavailable HOReggie ., DR LANIER Primary Care Unavailable HOReggie ., DR LANIER Attending Unavailable RENITA ., DR FATEMEH Higginbotham Consulting Unavailable MAGGIE, DR SOCORRO Zapata Consulting Unavailable PARTHA HYATT Consulting Unavailable SCOTT, DR MEEHAN Attending Unavailable HOY ., DR LANIER Primary Care Unavailable SCOTT, DR MEEHAN Admitting Unavailable HOY ., DR LANIER Consulting Unavailable HOY ., DR LANIER Admvidya Unavailable HOY ., DR LANIER Primary Care Unavailable HOY ., DR LANIER Attending Unavailable ZIEBER, DR ALLI Burgos Consulting Unavailable HOY ., DR LANIER Attending Unavailable HOY ., DR LANIER Consulting Unavailable HOY ., DR LANIER Primary Care Unavailable HOY ., DR LANIER Admvidya Unavailable ZARAGOZADEBORAH LOCKE Consulting Unavailable HOY ., DR LANIER Consulting Unavailable HOY ., DR LANIER Admitting Unavailable HOY ., DR LANIER Primary Care Unavailable HOY ., DR LANIER Attending Unavailable BROWN, SOCORRO Consulting Unavailable CARRINGTON ., DR FLOWERS Consulting Unavailable CARRINGTON ., DR FLOWERS Admitting Unavailable CARRINGTON ., DR FLOWERS Attending Unavailable HOY ., DR LANIER Primary Care Unavailable HOY ., DR LANIER Attending Unavailable HOY ., DR LANIER Consulting Unavailable HOY ., DR LANIER Primary Care Unavailable HOY ., DR LANIER Admvidya Unavailable WEST, DR SOCORRO Zapata Consulting Unavailable HOY ., DR LANIER Attending Unavailable HOY ., DR LANIER Consulting Unavailable HOY ., DR LANIER Primary Care Unavailable HOY ., DR LANIER Admvidya Unavailable WEST, DR SOCORRO Zapata Consulting Unavailable CARRINGTON ., DR FLOWERS Consulting Unavailable CARRINGTON ., DR FLOWERS Admvidya Unavailable CARRINGTON ., DR FLOWERS Attending Unavailable HOY ., DR LANIER Primary Care Unavailable HAY ., DR DUARTE Admitting Unavailable HAY ., DR DUARTE Attending Unavailable HAY ., DR DUARTE Consulting Unavailable HOY ., DR LANIER Primary Care Unavailable SOCORRO BANSAL Consulting Unavailable HOY ., DR LANIER Consulting Unavailable HOY ., DR LANIER Admitting Unavailable HOY ., DR LANIER Primary Care Unavailable HOY ., DR LANIER Attending Unavailable HOY ., DR LANIER Consulting Unavailable HOY ., DR LANIER Admvidya Unavailable HOY ., DR LANIER Primary Care Unavailable HOY ., DR LANIER Attending Unavailable ZIEBER, DR ALLI Burgos Consulting Unavailable CARRINGTON ., DR FLOWERS Consulting Unavailable CARRINGTON ., DR FLOWERS Admvidya Unavailable CARRINGTON ., DR FLOWERS Attending Unavailable HOY ., DR LANIER Primary Care Unavailable CARRINGTON ., DR FLOWERS Consulting Unavailable CARRINGTON ., DR FLOWERS Admvidya Unavailable CARRINGTON ., DR FLOWERS Attending Unavailable HOY ., DR LANIER Primary Care Unavailable Hoy, Yolnade M Primary Care Unavailable Zoran Chavez Admitting Unavailable Zoran Chavez Attending Unavailable Carrington, Lionel Attending Unavailable Yolande Staley Primary Care Unavailable Carrington, Lionel Admitting Unavailable Carrington, Lionel Attending Unavailable Yolande Staley Primary Care Unavailable Carrington, Lionel Admitting Unavailable Carrington, Lionel Attending Unavailable Yolande Staley Primary Care Unavailable Carrington, Lionel Admitting Unavailable MD Yolande Staley Primary Care Provider [phone] MD Zoran Chavez Attending Provider [phone] Syeda NOBLE, Tamiko Kilgore Attending Unavailable Syeda NOBLE, Tamiko Kilgore Attending Unavailable Syeda NOBLE, Tamiko Kilgore Attending Unavailable CARRINGTON, Lionel R Attending Unavailable CARRINGTON, Lionel R Admitting Unavailable CARRINGTON, Lionel R Referring Unavailable CARRINGTON, Lionel R Attending Unavailable NILL, Qamar Burgos Attending Unavailable NILL, Qamar Burgos Attending Unavailable CARRINGTON, Lionel R Attending Unavailable CARRINGTON, Lionel R Attending Unavailable CARRINGTON, Lionel R Attending Unavailable CARRINGTON, Lionel R Attending Unavailable CARRINGTON, Lionel R Attending Unavailable CARRINGTON, Lionel R Attending Unavailable CARRINGTON, Lionel R Admitting Unavailable CARRINGTON, Lionel R Referring Unavailable CARRINGTON, Lionel R Attending Unavailable CARRINGTON, Lionel R Attending Unavailable CARRINGTON, Lionel R Admitting Unavailable CARRINGTON, Lionel R Referring Unavailable CARRINGTON, Lionel R Attending Unavailable CARRINGTON, Lionel R Admitting Unavailable CARRINGTON, Lionel R Referring Unavailable Allergies Allergy Classification Reported Allergen(s) Allergy Type Date of Onset Reaction(s) Facility (7 sources) Acetaminophen; 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: [acetaminophen] Drug Allergy 04-11-20 20 Itching, Itching agitated [facility] (20 sources) Codeine; 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: [Codeine] Drug Allergy 06-04-20 14 rash [facility] (7 sources) oxyCODONE; 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: [oxycodone] Drug Allergy 04-11-20 20 Itching, agitated [facility] (16 sources) Acetaminophen / oxyCODONE; 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: [acetaminophen-oxyc odone] Drug Allergy aggitation [facility] Comment on above: pt states this does not work for pt, pt is not allergic to vicodin (2 sources) cyclobenzaprine Drug Allergy itching [facility] Other (2 sources) HYDROcodone Drug Allergy anxiety [facility] Other (2 sources) tiZANidine Drug Allergy hives [facility] Other (3 sources) Acetaminophen / HYDROcodone; 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: [Vicodin] Drug Allergy [facility] Rep[facility] (2 sources) Acetaminophen / oxyCODONE Drug Allergy [facility] Repository (1 source) atorvastatin Drug Allergy [facility] (2 sources) tiZANidine Drug Allergy [facility] (1 source) Acetaminophen / oxyCODONE; 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: [Percocet 5/325] Drug Allergy [facility] Repository Medications Current Medications Medication Drug Class(es) Dates Sig (Normalized) Sig (Original) acetaminophen 325 mg / HYDROcodone bitartrate 5 mg oral tablet (2 sources) Opioid Agonist Start: 02-03-2023 take 1 tablet by mouth every six hours as needed for pain acetaminophen-hy drocodone 325 mg-5 mg oral tablet 1 tab(s), Oral, q6hr as needed for pain, Refill(s) 0 Start Date: 02/03/23 Status: Ordered amLODIPine 5 mg oral tablet (10 sources) Dihydropyridine Calcium Channel Boogie Start: 02-10-2023 take 1 tablet by mouth once daily amLODIPine 5 mg Tab 5 mg = 1 tab(s), Oral, Daily, Refills(s) 0 Start Date: 02/10/23 Status: Ordered Start: 08-07-2019 End: 10-17-2021 take 10 mg by mouth at bedtime Amlodipine Discontinued 10 MG PO Bedtime August 07, 2019 1:00am October 17, 2021 12:30pm carvedilol 25 mg oral tablet (20 sources) alpha-Adrenergic Boogie, beta-Adrenergic Boogie Start: 10-17-2021 take 25 mg by mouth twice daily Carvedilol Active 25 MG PO Twice daily October 17, 2021 12:00am Start: 09-19-2021 take 2 tablets by [facility] twice daily carvedilol 6.25 mg Tab 12.5 mg = 2 tab(s), Oral, BID, Refills(s) 0 Start Date: 09/19/21 Status: Ordered Start: 09-19-2021 carvedilol 6.2 5 mg Tab Refills(s) 0 Start Date: 09/19/21 Status: Ordered take 1 tablet by barry th every twelve hours Carvedilol 12.5 MG 1 tablet with food Orally Twice a day Active cephalexin 500 mg oral capsule (4 sources) Cephalosporin Antibacterial Start: 02-17-2022 take 500 mg by mouth every twelve hours Cephalexin Active 500 MG PO Q12H 01 01February 17, 2022 12:00am Start: 02-17-2022 take 500 mg by mouth every twelve hours Cephalexin Active 500 MG PO Q12H 01 01February 17, 2022 12:00am Start: 02-17-2022 take 500 mg by mouth every twelve hours Cephalexin Active 500 MG PO Q12H 01 01February 17, 2022 12:00am cloNIDine hydrochloride 0.1 mg oral tablet (16 sources) Central alpha-2 Adrenergic Agonist Start: 02-17-2022 cloNIDine 0.1 mg tab Refills(s) 0 Start Date: 02/24/22 Status: Ordered Start: 02-17-2022 take 0.1 mg by mouth twice penny ly Clonidine Hcl Active 0.1 MG PO Twice daily February 17, 2022 12:00am Start: 02-17-2022 take 0.1 mg by mouth twice penny ly Clonidine Hcl Active 0.1 MG PO Twice daily February 17, 2022 12:00am colchicine 0.6 mg oral tablet (2 sources) Start: 02-03-2023 take 1 tablet by mouth once daily as needed for pain Colcrys 0.6 mg oral tablet 0.6 mg = 1 tab(s), Oral, Daily, PRN Gout pain, Refills(s) 0 Start Date: 02/03/23 Status: Ordered diclofenac sodium 75 mg delayed release oral tablet (16 sources) Nonsteroidal Anti-inflammatory Drug Start: 02-03-2023 take 1 tablet by mouth twice daily diclofenac sodium 75 mg Oral EC Tab 75 mg = 1 tab(s), Oral, BID, Refills(s) 0 Start Date: 02/03/23 Status: Ordered Start: 10-17-2021 take 75 mg by mouth twice daily Diclofenac Sodium Active 75 MG PO Twice daily October 17, 2021 12:00am Start: 08-07-2019 End: 04-19-2020 take 75 mg by mouth twice daily Diclofenac Sodium Discontinued 75 MG PO Twice daily August 07, 2019 1:00am April 19, 2020 8:04am Meaoicrrwul-Xgkdkeogj-Mwloql er (6 sources) Anticholinergic, Corticosteroid, beta2-Adrenergic Agonist Start: 08-07-2019 Gocpbawykoi-Fatfxmqdy-Cttygm er (Trelegy Ellipta) 100-62.5-25 mcg Blister With Device Active 1 INH INHALATION Daily August 07, 2019 3:01pm Start: 08-07-2019 Fluticasone-Um eclidin-Vilanter (Trelegy Ellipta) 100-62.5-25 mcg Blister With Device Active 1 INH INHALATION Daily August 07, 2019 1:00am irbesartan 300 mg oral tablet (19 sources) Angiotensin 2 Receptor Boogie Start: 10-17-2021 End: 02-06-2022 take 1 tablet by mouth once daily irbesartan 300 mg Tab 300 mg = 1 tab(s), Oral, Daily, Refills(s) 0 Start Date: 11/11/21 Status: Ordered Multivitamin preparation (6 sources) Start: 10-17-2021 take 1 tablet by mouth once daily Multivitamin Active 1 TAB PO Daily October 17, 2021 12:31pm Start: 10-17-2021 take 1 tablet by barry th once daily Multivitamin Active 1 TAB PO Daily October 17, 2021 12:00am olmesartan medoxomil 40 mg oral tablet (2 sources) Angiotensin 2 Receptor Boogie take 1 tablet by mouth every twenty-four hours Olmesartan Medoxomil 40 MG 1 tablet Orally Once a day Active omeprazole 40 mg delayed release oral capsule (20 sources) Proton Pump Inhibitor Start: 08-23-19 15 take 40 mg by mouth once daily Omeprazole Active 40 MG PO Daily August 07, 2019 1:00am omeprazole 40 mg Cap-EC (2 sources) Start: 08-23-19 15 take 1 capsule by mouth once daily omeprazole 40 mg Cap-EC 40 mg = 1 cap(s), Oral, Daily, Refills(s) 0, Control of stomach acid Start Date: 08/22/14 Status: Ordered pantoprazole 40 mg delayed release oral tablet (4 sources) Proton Pump Inhibitor Start: 02-04-20 take 1 tablet by mouth once daily Pantoprazole [address] Tab 40 mg = 1 tab(s), Oral, Daily, Refills(s) 0 Start Date: 02/03/23 Status: Ordered take 1 tablet by baryr th every twenty-four hours Pantoprazole Sodium 40 MG 1 tablet Orall y Once a day Active TENS Unit (2 sources) Start: 09-08-2019 tiZANidine 4 mg oral tablet (4 sources) Central alpha-2 Adrenergic Agonist Start: 02-03-2023 take 1-2 tablets by mouth at bedtime as needed for muscle spasms tiZANidine 4 mg Tab 1-2 tabs, Oral, Bedtime, PRN Spasm, Refills(s) 0 Start Date: 02/03/23 Status: Ordered take 1 tablet by mouth every eig ht hours tiZANidine HCl 4 MG 1 tablet as needed Orally Three times a day Active Trelegy Ellipta 100 mcg (2 sources) take 1 puff(s) by inhalation once daily Trelegy Ellipta 100 mcg 1 puff Inhalation Once a day Active Trelegy Ellipta 100 mcg-62.5 mcg-25 mcg inhalation powder (2 sources) Start: 02-03-2023 take 1 puff(s) by inhalation once daily Trelegy Ellipta 100 mcg-62.5 mcg-25 mcg inhalation powder = 1 puff(s), Inhalation, Daily, Refills(s) 0 Start Date: 02/03/23 Status: Ordered Completed/Discontinued Medications Medication Drug Class(es) Dates Sig (Normalized) Sig (Original) allopurinol 300 mg oral tablet (8 sources) Xanthine Oxidase Inhibitor Start: 08-07-2019 End: 04-11-2020 take 300 mg by mouth once daily Allopurinol Discontinued 300 MG PO Daily August 07, 2019 1:00am April 11, 2020 1:50pm ciprofloxacin 500 mg oral tablet (10 sources) Quinolone Antimicrobial Start: 01-20-2023 take 1 tablet by mouth once daily Cipro 500 mg Tab 500 mg = 1 tab(s), Oral, Daily, take one tab day before procedure and one tab after procedure, # 2 tab(s), Refills(s) 0, Pharmacy: [facility]/pharmacy #[id number], 170, cm, 01/20/23 10:45:00 EDT, Height/Length Dosing, 83.5, kg, 01/20/23 10:45:00 EDT, Weight Dosing Start Date: 01/20/23 Status: Ordered Start: 12-31-2022 take 1 tablet by barry th once daily Cipro 500 mg Tab 500 mg = 1 tab(s), Oral, Daily, Take 1 tablet the day before the procedure and 1 tablet after the procedure, # 6 tab(s), Refills(s) 0, Pharmacy: [facility]/pharmacy #[id number], 170, cm, 09/22/22 12:23:00 EDT, Height/Length Dosing, 78, kg, 02/24/22 10:53:00 EDT, W... Start Date: 12/31/22 Status: Ordered Start: 07-02-2022 take 1 tablet by barry once daily Cipro 500 mg Tab 500 mg = 1 tab(s), Oral, Daily, Take 1 tablet the day before the procedure and 1 tablet after the procedure, # 6 tab(s), Refills(s) 0, Pharmacy: [facility]/pharmacy #[id number], 170, cm, 02/24/22 10:53:00 EDT, Height/Length Dosing, 78, kg, 02/24/22 10:53:00 EDT, W... Start Date: 07/02/22 Status: Ordered Start: 11-05-2021 take 1 tablet by barry once daily Cipro 500 mg Tab 500 mg = 1 tab(s), Oral, Daily, Take 1 tab at nighttime prior to the day of procedure, then 1 tab right after the procedure, # 2 tab(s), Refills(s) 0, Pharmacy: [facility]/pharmacy #[id number], 170, cm, 11/05/21 11:37:00 EDT, Height/Length Dosing, 78, kg, 11/05/21... Start Date: 11/05/21 Status: Ordered diazePAM 5 mg oral tablet (6 sources) Benzodiazepine Start: 04-19-2020 End: 10-17-2021 take 5 mg by mouth four times daily Diazepam Discontinued 5 MG PO Four times daily 40 April 19, 2020 12:00am October 17, 2021 12:30pm doxycycline hyclate 100 mg oral capsule (1 source) Tetracycline-class Drug Start: 04-12-2023 take 1 capsule by mouth twice daily doxycycline hyclate 100 mg Cap 100 mg = 1 cap(s), Oral, BID, Take 1 capsule the day before the procedure and 1 capsule after the procedure, # 2 cap(s), Refills(s) 0, Pharmacy: [facility]/pharmacy #[id number], 188, cm, 02/10/23 14:22:00 EDT, Height/Length Dosing, 82.9, kg, 02/10/23 14:22:00 EDT, Weight Dosing Start Date: 04/12/23 Status: Ordered lisinopril 40 mg oral tablet (9 sources) Angiotensin Converting Enzyme Inhibitor Start: 06-22-2017 End: 10-17-2021 take 40 mg by mouth at bedtime Lisinopril Discontinued 40 MG PO Bedtime August 07, 2019 1:00am October 17, 2021 12:24pm losartan potassium 100 mg oral tablet (4 sources) Angiotensin 2 Receptor Boogie Start: 02-06-2022 End: 02-17-2022 take 100 mg by mouth once daily at bedtime Losartan Discontinued 100 MG PO Daily at bedtime February 06, 2022 12:00am February 17, 2022 10:48am oxyCODONE hydrochloride 5 mg oral tablet (6 sources) Opioid Agonist Start: 04-19-2020 End: 10-17-2021 take 5 mg by mouth every four to six hours Oxycodone Discontinued 5 MG PO EVERY 4-6 HOURS 14 April 19, 2020 October 17, 2021 12:31pm sildenafil 100 mg oral tablet (16 sources) Phosphodiesterase 5 Inhibitor Start: 07-05-2022 take 1 tablet by mouth every twenty-four hours sildenafil 100 mg Tab 100 mg = 1 tab(s), Oral, Daily, Take 1 tablet 1 hr prior to sexual activity as needed. Don't exceed 1 tab (100 mg) in a 24 hr period., # 30 tab(s), Refills(s) 3, Pharmacy: [id number], 170, cm, 02/24/22 10:53:00 EDT, Height/Length Dosing, 78, kg, 02/24/22 10:53:00 EDT, Weight Dosing Start Date: 07/05/22 Status: Ordered Start: 09-19-2021 sildenafil 100 mg Tab 100 mg = 1 tab(s), Oral, Daily, Take 1 pill 30 minutes prior to sexual relations, # 30 tab(s), Refills(s) 3, Pharmacy: [id number], 170, cm, 09/19/21 10:16:00 EDT, Height/Length Dosing, 78, kg, 09/19/21 10:16:00 EDT, Weight Dosing Start Date: 09/19/21 Status: Ordered Problems Active Problems Problem Classification Problem Date Documented Da te Episodic/Chronic Abdominal hernia (16 sources) Umbilical hernia 06-08-2017 Episodic Acute and unspecified renal failure (1 source) Acute kidney failure, unspecified; 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: [ACUTE KIDNEY FAILURE UNSPECIFIED] Onset: 3 Episodic Calculus of urinary tract (19 sources) History of calculus of kidney; 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: [Personal history of urinary calculi] Onset: 2 Episodic Cancer of bladder (20 sources) Malignant tumor of urinary bladder; 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: [Malignant neoplasm of bladder, unspecified] Onset: 2 Chronic Cancer of prostate (16 sources) Malignant tumor of prostate 08-22-2014 Chronic Comment on above: just had a surgery d one radical prostectomy at [facility] Cancer of prostate (20 sources) Personal history of malignant neoplasm of prostate; 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: [History of malignant neoplasm of prostate] Onset: 2 Episodic Chronic obstructive pulmonary disease and bronchiectasis (2 sources) Chronic obstructive lung disease 02-03-2023 Chronic Deficiency and other anemia (3 sources) Iron deficiency anemia; 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: [Iron deficiency anemia, unspecified] Onset: 3 Episodic Esophageal disorders (20 sources) Gastroesophageal reflux disease; 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: [Gastro-esophageal reflux disease without esophagitis] Onset: 3 08-22-2014 Chronic Essential hypertension (19 sources) Hypertensive disorder; 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: [Essential hypertension] Onset: 2 08-22-2014 Chronic Fluid and electrolyte disorders (1 source) Hypokalemia; 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: [HYPOKALEMIA] Onset: 3 Episodic Gout and other crystal arthropathies (17 sources) Primary gout; 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: [Other chondrocalcinosis, right knee] Onset: 3 08-22-2014 Chronic Comment on above: lots of inflammation per pt sometimes has to get steroids Occlusion or stenosis of precerebral arteries (9 sources) Occlusion and stenosis of bilateral carotid arteries; 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: [Occlusion and stenosis of unspecified carotid artery] Onset: 3 Chronic Osteoarthritis (5 sources) Osteoarthritis; 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: [Osteoarthrosis, unspecified whether generalized or localized, unspecified site] Onset: 2 Chronic Other acquired deformities (12 sources) Spondylolisthesis; 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: [Spondylolisthesis, cervical region] 04-19-2020 Episodic Other acquired deformities (2 sources) Acquired spondylolisthesis; 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: [Spondylolisthesis, cervical region] Episodic Other aftercare (1 source) Other [facility] (current) drug therapy; 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: [OTH CONTACT CENTER SPECIALIST CURRENT DRUG THERAPY] Onset: 3 Episodic Other and unspecified benign neoplasm (3 sources) History of polyp of colon; 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: [Personal history of colonic polyps] Onset: 3 Episodic Other circulatory disease (16 sources) Ecchymosis 05-06-2017 Episodic Comment on above: left leg from [place] ankle- box with snowblower in it slipped off a cart and banged his leg. Foot pink and dry with immediate capillary refill, 4t pedal and poterior tibial pulses. Other circulatory disease (4 sources) Other specified symptoms and signs involving the circulatory and respiratory systems; 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: [OTH SPEC SX SIGNS INVLV CIRC RS] Onset: 3 Episodic Other connective tissue disease (16 sources) Impingement syndrome of shoulder region 05-06-2017 Episodic Other connective tissue disease (2 sources) Other symptoms and signs involving the nervous system Episodic Other gastrointestinal disorders (3 sources) Altered bowel function; 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: [Change in bowel habit] Onset: 3 Episodic Other lower respiratory disease (1 source) Other forms of dyspnea; 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: [OTHER FORMS OF DYSPNEA] Onset: 3 Episodic Other male genital disorders (3 sources) Secondary erectile dysfunction; 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: [Erectile dysfunction following radical prostatectomy] Onset: 2 Chronic Other male genital disorders (16 sources) Erectile dysfunction following radical prostatectomy 07-07-2019 Chronic Other nervous system disorders (4 sources) Neuralgia/neuritis - ankle/foot; 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: [Unspecified mononeuropathy of left lower limb] Chronic Other nervous system disorders (4 sources) Chronic pain; 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: [Other chronic pain] Chronic Other nervous system disorders (2 sources) Other chronic pain Chronic Other nervous system disorders (2 sources) Paresthesia; 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: [Paresthesia of skin] Episodic Peripheral and visceral atherosclerosis (1 source) Peripheral vascular disease, unspecified; 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: [PERIPHERAL VASCULAR DISEASE UNS] Onset: 3 Chronic Pneumonia (except that caused by tuberculosis or sexually transmitted disease) (1 source) Pneumonia, unspecified organism; 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: [PNEUMONIA UNSPECIFIED ORGANISM] Onset: 3 Episodic Screening and history of mental health and substance abuse codes (1 source) Personal history of nicotine dependence; 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: [PERSONAL HISTORY OF NICOTINE DEPEND] Onset: 3 Episodic Septicemia (except in labor) (1 source) Sepsis, unspecified organism; 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: [SEPSIS UNSPECIFIED ORGANISM] Onset: 3 Episodic Spondylosis; intervertebral disc disorders; other back problems (12 sources) Degeneration of cervical intervertebral disc; 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: [Other cervical disc degeneration, unspecified cervical region] Onset: 3 Chronic Spondylosis; intervertebral disc disorders; other back problems (4 sources) Chronic low back pain; 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: [Low back pain, unspecified] Episodic Unclassified (3 sources) LOW BACK PAIN, UNSPECIFIED; 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: [LOW BACK PAIN, UNSPECIFIED] Onset: 3 Unclassified (2 sources) COUGH, UNSPECIFIED; 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: [COUGH, UNSPECIFIED] Onset: 3 Unclassified (1 source) CONTACT W/AND (SUSP) EXPOS COVID-19; 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: [CONTACT W/AND (SUSP) EXPOS COVID-19] Onset: 3 Unclassified (1 source) Encounter for preprocedural laboratory examination; 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: [Encounter for preprocedural laboratory examination] Onset: 2 Unclassified (2 sources) Body mass index 20-24 - normal 02-10-2023 Past or Other Problems Problem Classification Problem Date Documented Da te Episodic/Chronic Cancer of bladder (4 sources) Personal history of malignant neoplasm of bladder; 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: [PERSONAL HX MALIG NEOPLASM BLADDER] Onset: 08-19-2022 Episodic E Codes: Fall (1 source) Fall on same level from slipping, tripping and stumbling with subsequent striking against other object, initial encounter; 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: [FALL SAME LVL SLIP STRK OTH OBJ INT] Onset: 04-20-2022 Episodic Genitourinary symptoms and ill-defined conditions (2 sources) Blood in urine; 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: [Gross hematuria] Onset: 11-04-2021 Episodic Other fractures (4 sources) Multiple fractures of ribs, right side, initial encounter for closed fracture; 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: [MX FX RIBS RT SIDE INITIAL CLOS FX] Onset: 05-25-2022 Episodic Other injuries and conditions due to external causes (3 sources) Unspecified injury of thorax, initial encounter; 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: [UNSPECIFIED INJURY THORAX INITIAL] Onset: 04-18-2022 Episodic Other non-traumatic joint disorders (4 sources) Pain in right knee; 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: [PAIN IN RIGHT KNEE] Onset: 06-30-2022 Episodic Unclassified (3 sources) Low back pain, unspecified M54.50 Unclassified (1 source) LOW BACK PAIN, UNSPECIFIED; 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: [LOW BACK PAIN, UNSPECIFIED] Onset: 10-23-2022 Unclassified (1 source) COUGH, UNSPECIFIED; 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: [COUGH, UNSPECIFIED] Onset: 10-05-2022 Urinary tract infections (4 sources) Urinary tract infection, site not specified; 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: [UTI SITE NOT SPECIFIED] Onset: 03-12-2022 Episodic Results Test Name Value Interpretation Reference Range Facil ity Reminderson 06-28-2023 Reminders - [facility]c: Loretta Simons; Sent: 06/28/2023 10:52:09 EST Show up: 09/20/2023 10:52:00 EDT Subject: Cysto/6 mo Due Date/Time: 10/11/2023 10:52:00 EDT Reminder/Recall Patient is due in October 2023 for 6 month cysto/fish/cytol, PSA (bt ck) [facility]roV[facility]ion Fish and Urine Cyt o ([facility])on 05-26-2023 [facility] UC Revision Information Invalid Interpretation Code [facility] Comment on above: Result Comment: Jimbo ection Reason -[ To Nur, 05/26/23 - 14:52 ] Corrected report issued to include PMS/PWS. The diagnosis remains unchanged. Correction Notes - Performed By: #### 1 [id number] #### [facility] [address] [place] [address] Consent for Procedure/Surger yon 04-27-2023 Consent for Procedure/Surgery [id number] 0TIFF [facility] Consent for Treatmenton Consent for Treatment [id number] 0TIFF [facility] IntraOperative Documentson 1 06-27-2022 IntraOperative Documents [id number] 0TIFF [facility] Main OR Intraoperative Recor don 04-27-2023 Main OR Intraoperative Record IntraOp Document Type FTURO Summary Primary Physician: Lionel CARRINGTON MD Finalized Date/Time: 04/27/23 11:02:57 Pt. Name: MARY DIAZ/Sex: 1950 Male Med Rec #: [id number] Physician: Lionel CARRINGTON MD Financial #: [id number] Pt. Type: O Room/Bed: / Admit/Disch: 04/27/23 10:06:44 - Institution: Case Times FTURO Entry 1 Patient Times In Room 04/27/23 10:52:00 Out Room 04/27/23 11:05:00 Procedure Times Start 04/27/23 10:56:00 Stop 04/27/23 11:00:00 Anesthesia Times Last Modified By: Edgard ZELAYA, Cheryl GALLARDO 04/27/23 11:00:10 Case Attendance FTURO Entry 1 Entry 2 Entry 3 Case Attendee DEVONTE NOBLE, Lionel Rene RN, EDITHOR, Safia GROSS, Nanci Luna Role Performed Surgeon - Primary Incident Handler - Primary Scrub - Primary Time In 04/27/23 10:52:00 04/27/23 10:52:00 04/27/23 10:52:00 Time Out 04/27/23 11:05:00 04/27/23 11:05:00 04/27/23 11:05:00 Procedure CYSTOSCOPY LOCAL(.) CYSTOSCOPY LOCAL(.) CYSTOSCOPY LOCAL(.) Comments Last Modified By: Edgard ZELAYA, EDITHOR, Edgard ZELAYA, EDITHOR, Edgard ZELAYA, PAULINA, Cheryl 04/27/23 Cheryl 04/27/23 Cheryl 04/27/23 11:00:58 11:00:58 11:00:58 Surgical Procedures FTURO Entry 1 Procedure Description Procedure CYSTOSCOPY LOCAL Modifiers . Surgeon Description CYSTO Primary Procedure Yes Primary Surgeon Lionel CARRINGTON MD Start 04/27/23 10:56:00 Stop 04/27/23 11:00:00 Anesthesia Type Local Surgical Service Urology Wound Class 2 - Clean-Contaminated Last Modified By: PAULINA Rene RN, Cheryl 04/27/23 11:01:00 General Case Data FTURO Pre-Care Text: Classifies surgical wound, implements aseptic technique, initiates traffic control Entry 1 Case Information OR URO 1 FT Case Level None Wound Class 2 - Clean-Contaminated Specialty Urology Preop Diagnosis HISTORY OF BLADDER Postop Same As Preop No CANCER Postop Diagnosis clear bladder Outcomes Met? Yes Last Modified By: PAULINA Rene RN, Cheryl 04/27/23 10:55:56 Post-Care Text: The patient is free from signs and symptoms of infection EU IntraOp - FTURO Pre-Care Text: Implements protective measures prior to operative or invasive procedure, confirms identity before the operative or invasive procedure, verifies operative procedure, surgical site, and laterality Entry 1 EU Perioperative Protocols Procedure(s) CYSTOSCOPY LOCAL(.) Patient Identity Birthday, ID Band Verified (select at Check, Patient least 2): Participation Consents / H and P HandP, Surgery/Procedure Operative Site N/A Verified Consent Marking Verified Surgical Site Yes Laterality Verified n/a Verified Procedure Verified Yes Correct Patient Yes Position Verified Availability Equipment, Medication Time Out Lionel CARRINGTON MD, Verified (If Participants Edgard ZELAYA, EDITHOR, Applicable) Safia Luna CST, Kimberly A Time Out Complete 04/27/23 10:52:00 Allergies Reviewed? Yes Allergies Reviewed Self/Patient With Body Position Supine Prep Area penis Prep Agents Betadine Solution Skin. Condition Unable to Visualize Additional FISH Specimens Comment pre-op Specimens Collected Vitals - EU Blood Pressure 167/96 Pulse 76 bpm Respirations SPO2 EBL 0 IandO - EU Total Intake 0 Total Output 0 Outcomes Met? Yes Last Modified By: PAULINA Rene RN, Ruthann 04/27/23 11:02:08 Post-Care Text: The patient is free from signs and symptoms of injury caused by extraneous objects Sign Out FTURO Entry 1 Before Patient Leaves OR Nurse verbally Yes Nurse verbally n/a confirms with the confirms with the team the name of team that the procedure(s) instrument, sponge, recorded and needle counts are correct (or N/A) Nurse verbally Yes Nurse verbally n/a confirms with the confirms with the team how the team whether there specimen is labeled are any equipment (including patient problems to be name), if applicable addressed Sign Out Complete 04/27/23 11:02:00 Last Modified By: PAULINA Rene RN, Ruthann 04/27/23 11:02:55 Case Comments Finalized By: PAULINA Rene RN, Ruthann Document Signatures Signed By: PAULINA Rene RN, Ruthann 04/27/23 11:02 [facility] Main OR Preoperative Recordo n 04-27-2023 Main OR Preoperative Record Holding Area Document Type FTURO Summary Primary Physician: Lionel CARRINGTON MD Finalized Date/Time: 04/27/23 10:26:02 Pt. Name: MARY DIAZ/Sex: 1950 Male Med Rec #: [id number] Physician: Lionel CARRINGTON MD Financial #: [id number] Pt. Type: O Room/Bed: / Admit/Disch: 04/27/23 10:06:44 - Institution: Case Times Holding FTURO Pre-Care Text: Verifies consent for planned procedure, identifies individual values and wishes concerning care, includes family members in perioperative teaching Secures patient's records' belongings, and valuables, maintains patient's dignity and privacy, and maintains patient confidentiality Entry 1 In Holding 04/27/23 10:22:00 Outcomes Met? Yes Last Modified By: Avani Costello LPN 04/27/23 10:22:08 Post-Care Text: The patient participates in decisions affecting his or her perioperative plan of care The patient's right to privacy is maintained Surgery Checklist FTURO Entry 1 Patient Birthday, ID Band Procedure History and Physical, Identification: Check, Patient Verification: Surgical Consent, With Participation Patient NPO after Midnight: n/a Date/Time: 04/27/23 10:22:00 Personal Items: Dentures, Glasses, Personal Items glasses, bilat hearing Jewelry Comment: aids, upper full denture, wedding band Limitations: up ad abiodun Complaints of Pain: No Skin Integrity Intact, [place], Warm, & Dry Vitals - EU Blood Pressure 167/96 Pulse 76 bpm Respirations 20 br/min SPO2 97 % Last Modified By: Avani Costello LPN 04/27/23 10:25:57 General Comments: Temp 36.7 Finalized By: Avani Costello LPN Document Signatures Signed By: Avani Costello LPN 04/27/23 10:26 [facility] Operative Reporton Operative Report Patient: MARY DIAZ Age: 73 years Sex: Male : 1950 Associated Diagnoses: None Author: Lionel CARRINGTON MD Procedure Operative Information Details: Date/ Time: 04/27/2023 11:02:00. 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 Post-Op Dx: Same. Anesthesia Type: Local. Procedure: Local Cystoscopy. Complications: None. Risks/Benefits/Informe d Consent: Surgical risks, benefits, details of the procedure have been explained to the patient, Full informed consent has been obtained. Intraoperative Information Prepped: Patient is brought back to the endoscopy suite, Patient is placed in supine position, Patient prepped in the usual fashion with Betadine solution, 2% Xylocaine Jelly is placed per Urethra, After waiting several minutes the Cystoscope is introduced. The Urethra is: Normal. The Prostatic Urethra is: Absent prostate. The Bladder is: Prior resection sites with necrotic debris attached. No evidence of tumors or suspicious lesions.. The ureteral orifices: Show efflux of clear urine. Devices Implanted: None. Removal: Cystoscope is removed, The patient tolerated it well. Postoperative Information Discharge: Patient is discharged home with antibiotic coverage, Follow up arranged. We will repeat a surveillance cystoscopy in 6 months.. [facility] Comment on above: Result Comment: Elec tronically Signed By: DEVONTE NOBLE, Lionel Ernandez\Date and Time Signed: 04/27/23 11:04 EST Outpatient Surgery Discharge Instructionon 04-27-2023 Outpatient Surgery Discharge Instruction [id number] 0TIFF [facility] Reminderson 04-27-2023 Reminders - From: Loretta Simnos To: EU - Recalls [facility]; Cc: Loretta Simons; Sent: 03/05/2023 14:06:16 EDT Show up: 07/22/2023 14:06:00 EST Subject: Cysto/fish/cytol, Due Date/Time: 08/09/2023 14:06:00 EST Reminder/Recall Patient is due in August 2023 for 4 month cysto/fish/cytol (bt ck), ? PSA Pt will be due in October 2023 for 6 month cysto [facility] UroVysion Fish and Urine Cyt o ([facility])on 04-27-2023 [facility] Method of Extraction Voided [facility] Comment on above: Performed By: #### 1 [id number] #### [facility] [address] [place] [address] [facility] Number of Jars 1 Invalid Interpretation Code [facility] Comment on above: Performed By: #### 1 [id number] #### [facility] [address] [place] [address] [facility] Specimen Urine [facility] Comment on above: Performed By: #### 1 [id number] #### [facility] [address] [place] [address] [facility] Type of Service Technical Only [facility] Comment on above: Performed By: #### 1 [id number] #### [facility] [address] [place] [address] Outside Colonoscopyon 2022 Outside Colonoscopy [id number] 0CD:127 [facility] Reminderson 03-16-2023 Reminders - From: Stephanie Fletcher LPN To: N - Clinical; Sent: 03/16/2023 07:57:36 EDT Show up: 02/08/2028 07:00:00 EDT Subject: colonoscopy recall Due Date/Time: 03/10/2028 07:00:00 EDT Reminder/Recall Patient due for surveillance colonoscopy 03/10/2028 due to history of colonic polyps. [facility] Reminderson 03-05-2023 Reminders - [facility]ons [facility]: Loretta Simons; Sent: 07/02/2022 14:10:41 EST Show up: 08/19/2022 14:10:00 EST Subject: cysto/fish/cytol Due Date/Time: 09/07/2022 14:10:00 EDT Reminder/Recall Pt is due in September 2022 for 3 month cysto/fish./cytol (bt ck) Patient scheduled for 09/29/22. He will be due in December 2022.LG Patient scheduled for 01/05/23. Pt will be due in Mar 2023.LG Patient sched for 4 month cysto 04/27/23 at [facility]. He will be due in August 2023.LG new thread [facility] Consent for Procedure/Surger yon 02-11-2023 Consent for Procedure/Surgery [id number] CD:127 [facility] Ambulatory Visit Summaryon 0 02-10-2023 Ambulatory Visit Summary MARY DIAZ :1950 Visit Date:02/10/2023 Ambulatory Visit Instructions Your Care Team Attending Physician - LUIS NOBLE, Qamar Burgos Primary Care Physician - Yolande Staley MD This Is Your Medications List Contact prescribing physician if questions or concerns acetaminophen-hydrocod one (acetaminophen-hydroco done 325 mg-5 mg oral tablet) amlodipine (amLODIPine 5 mg Tab) ciprofloxacin (Cipro 500 mg Tab) colchicine (Colcrys 0.6 mg oral tablet) diclofenac (diclofenac sodium 75 mg Oral EC Tab) fluticasone/umeclidini um/vilanterol (Trelegy Ellipta 100 mcg-62.5 mcg-25 mcg inhalation powder) pantoprazole (Pantoprazole [address] Tab) sildenafil (sildenafil 100 mg Tab) tizanidine (tiZANidine 4 mg Tab) Procedures Performed TURBT - Transurethral resection of bladder tumor (02/17/2022), TURBT - Transurethral resection of bladder tumor (10/29/2021), Cystourethroscopy with dilation of urethral stricture (10/14/2021), Repair of umbilical hernia (06/22/2017), Arthroscopy of shoulder (05/20/2017), bilateral fifth partial metatarsal osteotomies and Silver Tailor's bunionectomies (08/29/2014), Radical perineal prostatectomy (08/15/2014), Colonoscopy (05/2014), Complete repair of rotator cuff (2010), Shoulder reconstruction (1998), Appendectomy (1964), Arthroplasty of the ankle, Arthroscopy of knee, Cervical vertebral fusion. Discharge Vitals Heart Rate (Peripheral) 70 Respiratory Rate 16 Blood Pressure 124/80 Height 188 cm Height 74 in Weight 82.9 kg Weight 182.38 lb BMI 23.46 What to do next Scheduled Follow-Up Appointments Wednesday 10:15 AM EDT With: DEVONTE NOBLE, Lionel Burgos Where: [facility] Lab Reportson 02-03-2023 Lab Reports [id number] 0CD:127 [facility] Physician Referralon 023 Physician Referral [id number] 0CD:127 [facility] UroVysion Fish and Urine Cyt o ([facility])on 02-03-2023 [facility] Revision Information Invalid Interpretation Code [facility] Comment on above: Result Comment: Jimbo ection Reason -[ To Nur, 02/03/23 - 12:32 ] Corrected report issued to update PMS/PWS. The diagnosis remains unchanged. Correction Notes - Performed By: #### 1 [id number] #### [facility] [address] [place] [address] Lab Reportson 01-29-2023 Lab Reports [id number] 0CD:127 [facility] Operative Reporton Operative Report [id number] 0CD:127 [facility] Ambulatory Visit Summaryon 0 01-20-2023 Ambulatory Visit Summary MARY DIAZ :1950 Visit Date:01/20/2023 Ambulatory Visit Instructions Your Diagnosis Bladder cancer History of prostate cancer History of kidney stones Impotence Your Care Team Attending Physician - Lionel CARRINGTON MD Primary Care Physician - Yolande Staley MD This Is Your Medications List ciprofloxacin (Cipro 500 mg Tab) sildenafil (sildenafil 100 mg Tab) Contact prescribing physician if questions or concerns carvedilol (carvedilol 6.25 mg Tab) clonidine (cloNIDine 0.1 mg tab) irbesartan (irbesartan 300 mg Tab) Procedures Performed TURBT - Transurethral resection of bladder tumor (02/17/2022), TURBT - Transurethral resection of bladder tumor (10/29/2021), Cystourethroscopy with dilation of urethral stricture (10/14/2021), Repair of umbilical hernia (06/22/2017), Arthroscopy of shoulder (05/20/2017), bilateral fifth partial metatarsal osteotomies and Silver Tailor's bunionectomies (08/29/2014), Radical perineal prostatectomy (08/15/2014), Complete repair of rotator cuff (2010), Shoulder reconstruction (1998), Appendectomy (1965), Arthroplasty of the ankle, Arthroscopy of knee, Cervical vertebral fusion. Discharge Vitals Heart Rate (Peripheral) 85 Blood Pressure 171/95 Height 170.0 cm Height 67 in Weight 83.5 kg Weight 183.7 lb BMI 28.89 What to do next Scheduled Follow-Up Appointments Wednesday 2:20 PM EDT With: LUIS NOBLE, Qamar Burgos Where: [facility] Normal [address] [place] [address] [place] [address]- \.br\ You Need to Schedule the Following Appointments\.b r\ Follow Up with DEVONTE NOBLE, Lionel Burgos, URL When: \.br\ Comments:\.br\ sched cysto\.br\ Where:\.br\ [facility] [address]\.br\ [place] [address]-\.br\ [id number]\.br\ Medications\.br \ What How Much When Instructions\.b r\ New ciprofloxacin (Cipro 500 mg Tab) 1 Tablets By Mouth Every day take one tab day before procedure and one tab after procedure Pickup at [facility]/pharmacy #[id number]\.br\ Unchanged sildenafil (sildenafil 100 mg Tab) 1 Tablets By Mouth Every day Take 1 tablet 1 hr prior to sexual activity as needed. Don't exceed 1 tab (100 mg) in a 24 hr period. \.br\ Unchanged carvedilol (carvedilol 6.25 mg Tab) 2 Tablets By Mouth 2 times a day Contact prescribing physician if questions or concerns \.br\ Unchanged clonidine (cloNIDine 0.1 mg tab) Contact prescribing physician if questions or concerns \.br\ Unchanged irbesartan (irbesartan 300 mg Tab) 1 Tablets By Mouth Every day Contact prescribing physician if questions or concerns \.br\ Pharmacy Information\.br \ [facility]/pharmacy #[id number]: [address], [place] [id number] [phone]\.br\ Allergies\.br\ Percocet 5/325\.br\ codeine (hives/rashes)\ .br\ Problems\.br\ Ongoing - Any problem that you are currently receiving treatment for.\.br\ Acute gouty arthritis\.br\ Bladder cancer\.br\ History of kidney stones\.br\ History of prostate cancer\.br\ HTN (hypertension)\ .br\ Impotence\.br\ Historical - Any problem that you are no longer receiving treatment for.\.br\ Acid reflux\.br\ Cancer of prostate\.br\ Education Materials\.br\ Bladder Cancer\.br\ \.br\ Bladder cancer is a condition where abnormal tissue (a tumor) grows in the bladder. The bladder is the organ that holds urine. Two tubes (ureters) carry urine from the kidneys to the bladder.\.br\ The bladder wall is made of layers of tissue. Cancer that spreads through these layers of the bladder wall becomes more difficult to treat.\.br\ What increases the risk?\.br\ The following factors may make you more likely to develop this condition:\.br\ ? \.br\ Smoking.\.br\ ? \.br\ Working where there are risks (occupational exposures), such as working with rubber, leather, clothing fabric, dyes, chemicals, or paint.\.br\ ? \.br\ Being 55 years of age or older.\.br\ ? \.br\ Being male.\.br\ ? \.br\ Having long-term bladder inflammation.\. br\ ? \.br\ Having a history of cancer. This includes:\.br\ ? \.br\ A family history of bladder cancer.\.br\ ? \.br\ Having had bladder cancer before.\.br\ ? \.br\ Having had certain treatments for cancer before, such as:\.br\ ? \.br\ Medicines to kill cancer cells (chemotherapy). \.br\ ? \.br\ Strong X-ray beams or high-energy capsules to kill cancer cells and shrink tumors (radiation therapy).\.br\ ? \.br\ Having been exposed to arsenic. This is a poisonous substance.\.br\ What are the signs or symptoms?\.br\ Early symptoms of this condition include:\.br\ ? \.br\ Blood in your urine.\.br\ ? \.br\ Pain when urinating.\.br\ ? \.br\ Infections of your urinary system (urinary tract infections or UTIs) that happen often.\.br\ ? \.br\ Having to urinate sooner or more often than normal.\.br\ Late symptoms of this condition include:\.br\ ? \.br\ Not being able to urinate.\.br\ ? \.br\ Pain on one side of your lower back.\.br\ ? \.br\ Loss of appetite.\.br\ ? \.br\ Weight loss.\.br\ ? \.br\ Tiredness (fatigue).\.br\ ? \.br\ Swelling in your feet.\.br\ ? \.br\ Bone pain.\.br\ How is this diagnosed?\.br\ This condition is diagnosed based on:\.br\ ? \.br\ Your medical history.\.br\ ? \.br\ A physical exam.\.br\ ? \.br\ Lab tests, such as urine tests.\.br\ ? \.br\ Imaging tests.\.br\ ? \.br\ Your symptoms.\.br\ You may also have other tests or procedures, such as:\.br\ ? \.br\ A cystoscopy. This involves putting a narrow tube into your urethra. The urethra is the organ that carries urine from your bladder to the outside of your body. This procedure is done to view the lining of your bladder for tumors.\.br\ ? \.br\ A biopsy. This involves removing a tissue sample to look at under a microscope to check for cancer.\.br\ Blood tests or imaging tests may be needed. These show how far into the bladder wall cancer has grown, and if cancer has spread to any other parts of your body. Tests may include:\.br\ ? \.br\ CT scan.\.br\ ? \.br\ MRI.\.br\ ? \.br\ Bone scan.\.br\ ? \.br\ X-ray.\.br\ How is this treated?\.br\ Your health care provider may recommend one or more types of treatment based on the stage of your cancer. The most common treatments are:\.br\ ? \.br\ Surgery to remove the cancer. Types of surgeries include:\.br\ ? \.br\ Removing a tumor on the inside wall of the bladder (transurethral resection).\.br \ ? \.br\ Removing the bladder (cystectomy).\. br\ ? \.br\ Radiation therapy. This is often combined with chemotherapy.\. br\ ? \.br\ Chemotherapy.\. br\ ? \.br\ Immunotherapy. This uses medicines to help your body's disease-fightin g system (immune system) destroy cancer cells.\.br\ Follow these instructions at home:\.br\ ? \.br\ Take dfbj-wxw-idzxru r and prescription medicines only as told by your health care provider.\.br\ ? \.br\ If you were prescribed an antibiotic medicine, take it as told by your health care provider. Do not stop using the antibiotic even if you start to feel better.\.br\ ? \.br\ Eat a healthy diet. Some treatments might affect your appetite.\.br\ ? \.br\ Do not use any products that contain nicotine or tobacco. These products include cigarettes, chewing tobacco, and vaping devices, such as e-cigarettes. If you need help quitting, ask your health care provider.\.br\ ? \.br\ Consider joining a support group. This may help you learn to deal with the stress of having bladder cancer.\.br\ ? \.br\ Tell your cancer care team if you develop side effects. Your team may be able to recommend ways to get relief.\.br\ ? \.br\ Keep all follow-up visits. This is important.\.br\ Where to find more information\.br \ ? \.br\ [place] [employer] (ACS): cancer.org\.br\ ? \.br\ National Cancer [place] (NCI): cancer.gov\.br\ Contact a health care provider if:\.br\ ? \.br\ You have symptoms of a UTI. These include:\.br\ ? \.br\ Fever.\.br\ ? \.br\ Chills.\.br\ ? \.br\ Weakness.\.br\ ? \.br\ Muscle aches.\.br\ ? \.br\ Pain in your abdomen.\.br\ ? \.br\ Urge to urinate that is stronger and happens more often than normal.\.br\ ? \.br\ Burning in the bladder or urethra when you urinate.\.br\ Get help right away if:\.br\ ? \.br\ There is blood in your urine.\.br\ ? \.br\ You cannot urinate.\.br\ ? \.br\ You have severe pain or other symptoms that do not go away.\.br\ Summary\.br\ ? \.br\ Bladder cancer is a condition where tumors grow in the bladder.\.br\ ? \.br\ Diagnosis is based on your medical history, a physical exam, lab tests, imaging tests, and your symptoms.\.br\ ? \.br\ Your health care provider may recommend one or more types of treatment based on the stage of your cancer.\.br\ [facility] Ambulatory Visit Summary MARY DIAZ :1950 Visit Date:01/20/2023 Ambulatory Visit Instructions Your Diagnosis Bladder cancer History of prostate cancer History of kidney stones Impotence Your Care Team Attending Physician - DEVONTE NOBLE, Lionel Burgos Primary Care Physician - Yolande Staley MD This Is Your Medications List Contact prescribing physician if questions or concerns carvedilol (carvedilol 6.25 mg Tab) clonidine (cloNIDine 0.1 mg tab) irbesartan (irbesartan 300 mg Tab) sildenafil (sildenafil 100 mg Tab) Procedures Performed TURBT - Transurethral resection of bladder tumor (02/17/2022), TURBT - Transurethral resection of bladder tumor (10/29/2021), Cystourethroscopy with dilation of urethral stricture (10/14/2021), Repair of umbilical hernia (06/22/2017), Arthroscopy of shoulder (05/20/2017), bilateral fifth partial metatarsal osteotomies and Silver Tailor's bunionectomies (08/29/2014), Radical perineal prostatectomy (08/15/2014), Complete repair of rotator cuff (2010), Shoulder reconstruction (1998), Appendectomy (1964), Arthroplasty of the ankle, Arthroscopy of knee, Cervical vertebral fusion. Discharge Vitals Heart Rate (Peripheral) 85 Blood Pressure 171/95 Height 170.0 cm Height 67 in Weight 83.5 kg Weight 183.7 lb BMI 28.89 What to do next Scheduled Follow-Up Appointments Wednesday 2:20 PM EDT With: LUIS NOBLE, Qamar Burgos Where: General Surgery [facility] [address] [place] [address] [place] [address]- \.br\ You Need to Schedule the Following Appointments\.b r\ Follow Up with DEVONTE NOBLE, Lionel Burgos, URL When: \.br\ Comments:\.br\ sched cysto\.br\ Where:\.br\ [facility] [address]\.br\ [place] [address]-\.br\ [phone]\.br\ Medications\.br \ What How Much When Instructions\.b r\ Unchanged carvedilol (carvedilol 6.25 mg Tab) 2 Tablets By Mouth 2 times a day Contact prescribing physician if questions or concerns \.br\ Unchanged clonidine (cloNIDine 0.1 mg tab) Contact prescribing physician if questions or concerns \.br\ Unchanged irbesartan (irbesartan 300 mg Tab) 1 Tablets By Mouth Every day Contact prescribing physician if questions or concerns \.br\ Unchanged sildenafil (sildenafil 100 mg Tab) 1 Tablets By Mouth Every day Take 1 tablet 1 hr prior to sexual activity as needed. Don't exceed 1 tab (100 mg) in a 24 hr period. Contact prescribing physician if questions or concerns \.br\ Allergies\.br\ Percocet 5/325\.br\ codeine (hives/rashes)\ .br\ Problems\.br\ Ongoing - Any problem that you are currently receiving treatment for.\.br\ Acute gouty arthritis\.br\ Bladder cancer\.br\ History of kidney stones\.br\ History of prostate cancer\.br\ HTN (hypertension)\ .br\ Impotence\.br\ Historical - Any problem that you are no longer receiving treatment for.\.br\ Acid reflux\.br\ Cancer of prostate\.br\ Education Materials\.br\ Bladder Cancer\.br\ \.br\ Bladder cancer is a condition where abnormal tissue (a tumor) grows in the bladder. The bladder is the organ that holds urine. Two tubes (ureters) carry urine from the kidneys to the bladder.\.br\ The bladder wall is made of layers of tissue. Cancer that spreads through these layers of the bladder wall becomes more difficult to treat.\.br\ What increases the risk?\.br\ The following factors may make you more likely to develop this condition:\.br\ ? \.br\ Smoking.\.br\ ? \.br\ Working where there are risks (occupational exposures), such as working with rubber, leather, clothing fabric, dyes, chemicals, or paint.\.br\ ? \.br\ Being 55 years of age or older.\.br\ ? \.br\ Being male.\.br\ ? \.br\ Having long-term bladder inflammation.\. br\ ? \.br\ Having a history of cancer. This includes:\.br\ ? \.br\ A family history of bladder cancer.\.br\ ? \.br\ Having had bladder cancer before.\.br\ ? \.br\ Having had certain treatments for cancer before, such as:\.br\ ? \.br\ Medicines to kill cancer cells (chemotherapy). \.br\ ? \.br\ Strong X-ray beams or high-energy capsules to kill cancer cells and shrink tumors (radiation therapy).\.br\ ? \.br\ Having been exposed to arsenic. This is a poisonous substance.\.br\ What are the signs or symptoms?\.br\ Early symptoms of this condition include:\.br\ ? \.br\ Blood in your urine.\.br\ ? \.br\ Pain when urinating.\.br\ ? \.br\ Infections of your urinary system (urinary tract infections or UTIs) that happen often.\.br\ ? \.br\ Having to urinate sooner or more often than normal.\.br\ Late symptoms of this condition include:\.br\ ? \.br\ Not being able to urinate.\.br\ ? \.br\ Pain on one side of your lower back.\.br\ ? \.br\ Loss of appetite.\.br\ ? \.br\ Weight loss.\.br\ ? \.br\ Tiredness (fatigue).\.br\ ? \.br\ Swelling in your feet.\.br\ ? \.br\ Bone pain.\.br\ How is this diagnosed?\.br\ This condition is diagnosed based on:\.br\ ? \.br\ Your medical history.\.br\ ? \.br\ A physical exam.\.br\ ? \.br\ Lab tests, such as urine tests.\.br\ ? \.br\ Imaging tests.\.br\ ? \.br\ Your symptoms.\.br\ You may also have other tests or procedures, such as:\.br\ ? \.br\ A cystoscopy. This involves putting a narrow tube into your urethra. The urethra is the organ that carries urine from your bladder to the outside of your body. This procedure is done to view the lining of your bladder for tumors.\.br\ ? \.br\ A biopsy. This involves removing a tissue sample to look at under a microscope to check for cancer.\.br\ Blood tests or imaging tests may be needed. These show how far into the bladder wall cancer has grown, and if cancer has spread to any other parts of your body. Tests may include:\.br\ ? \.br\ CT scan.\.br\ ? \.br\ MRI.\.br\ ? \.br\ Bone scan.\.br\ ? \.br\ X-ray.\.br\ How is this treated?\.br\ Your health care provider may recommend one or more types of treatment based on the stage of your cancer. The most common treatments are:\.br\ ? \.br\ Surgery to remove the cancer. Types of surgeries include:\.br\ ? \.br\ Removing a tumor on the inside wall of the bladder (transurethral resection).\.br \ ? \.br\ Removing the bladder (cystectomy).\. br\ ? \.br\ Radiation therapy. This is often combined with chemotherapy.\. br\ ? \.br\ Chemotherapy.\. br\ ? \.br\ Immunotherapy. This uses medicines to help your body's disease-fightin g system (immune system) destroy cancer cells.\.br\ Follow these instructions at home:\.br\ ? \.br\ Take evul-qao-eerrzh r and prescription medicines only as told by your health care provider.\.br\ ? \.br\ If you were prescribed an antibiotic medicine, take it as told by your health care provider. Do not stop using the antibiotic even if you start to feel better.\.br\ ? \.br\ Eat a healthy diet. Some treatments might affect your appetite.\.br\ ? \.br\ Do not use any products that contain nicotine or tobacco. These products include cigarettes, chewing tobacco, and vaping devices, such as e-cigarettes. If you need help quitting, ask your health care provider.\.br\ ? \.br\ Consider joining a support group. This may help you learn to deal with the stress of having bladder cancer.\.br\ ? \.br\ Tell your cancer care team if you develop side effects. Your team may be able to recommend ways to get relief.\.br\ ? \.br\ Keep all follow-up visits. This is important.\.br\ Where to find more information\.br \ ? \.br\ [place] [employer] (ACS): cancer.org\.br\ ? \.br\ [place] [employer] [place] (NCI): cancer.gov\.br\ Contact a health care provider if:\.br\ ? \.br\ You have symptoms of a UTI. These include:\.br\ ? \.br\ Fever.\.br\ ? \.br\ Chills.\.br\ ? \.br\ Weakness.\.br\ ? \.br\ Muscle aches.\.br\ ? \.br\ Pain in your abdomen.\.br\ ? \.br\ Urge to urinate that is stronger and happens more often than normal.\.br\ ? \.br\ Burning in the bladder or urethra when you urinate.\.br\ Get help right away if:\.br\ ? \.br\ There is blood in your urine.\.br\ ? \.br\ You cannot urinate.\.br\ ? \.br\ You have severe pain or other symptoms that do not go away.\.br\ Summary\.br\ ? \.br\ Bladder cancer is a condition where tumors grow in the bladder.\.br\ ? \.br\ Diagnosis is based on your medical history, a physical exam, lab tests, imaging tests, and your symptoms.\.br\ ? \.br\ Your health care provider may recommend one or more types of treatment based on the stage of your cancer.\.br\ ? \.br\ Consider joining a support group. This may help you learn to deal with the stress of having bladder cancer.\.br\ This information is not intended to replace advice given to you by your health care pro [facility] Pathology Noteon 01-20-2023 Pathology Note [id number] 0CD:127 [facility] Patient Educationon 01-21-20 23 Patient Education Oncology Bladder Cancer Bladder cancer is a condition where abnormal tissue (a tumor) grows in the bladder. The bladder is the organ that holds urine. Two tubes (ureters) carry urine from the kidneys to the bladder. The bladder wall is made of layers of tissue. Cancer that spreads through these layers of the bladder wall becomes more difficult to treat. What increases the risk? The following factors may make you more likely to develop this condition: ? Smoking. ? Working where there are risks (occupational exposures), such as working with rubber, leather, clothing fabric, dyes, chemicals, or paint. ? Being 55 years of age or older. ? Being male. ? Having long-term bladder inflammation. ? Having a history of cancer. This includes: ? A family history of bladder cancer. ? Having had bladder cancer before. ? Having had certain treatments for cancer before, such as: ? Medicines to kill cancer cells (chemotherapy). ? Strong X-ray beams or high-energy capsules to kill cancer cells and shrink tumors (radiation therapy). ? Having been exposed to arsenic. This is a poisonous substance. What are the signs or symptoms? Early symptoms of this condition include: ? Blood in your urine. ? Pain when urinating. ? Infections of your urinary system (urinary tract infections or UTIs) that happen often. ? Having to urinate sooner or more often than normal. Late symptoms of this condition include: ? Not being able to urinate. ? Pain on one side of your lower back. ? Loss of appetite. ? Weight loss. ? Tiredness (fatigue). ? Swelling in your feet. ? Bone pain. How is this diagnosed? This condition is diagnosed based on: ? Your medical history. ? A physical exam. ? Lab tests, such as urine tests. ? Imaging tests. ? Your symptoms. You may also have other tests or procedures, such as: ? A cystoscopy. This involves putting a narrow tube into your urethra. The urethra is the organ that carries urine from your bladder to the outside of your body. This procedure is done to view the lining of your bladder for tumors. ? A biopsy. This involves removing a tissue sample to look at under a microscope to check for cancer. Blood tests or imaging tests may be needed. These show how far into the bladder wall cancer has grown, and if cancer has spread to any other parts of your body. Tests may include: ? CT scan. ? MRI. ? Bone scan. ? X-ray. How is this treated? Your health care provider may recommend one or more types of treatment based on the stage of your cancer. The most common treatments are: ? Surgery to remove the cancer. Types of surgeries include: ? Removing a tumor on the inside wall of the bladder (transurethral resection). ? Removing the bladder (cystectomy). ? Radiation therapy. This is often combined with chemotherapy. ? Chemotherapy. ? Immunotherapy. This uses medicines to help your body's disease-fighting system (immune system) destroy cancer cells. Follow these instructions at home: ? Take ecdw-gtk-cxtpvbx and prescription medicines only as told by your health care provider. ? If you were prescribed an antibiotic medicine, take it as told by your health care provider. Do not stop using the antibiotic even if you start to feel better. ? Eat a healthy diet. Some treatments might affect your appetite. ? Do not use any products that contain nicotine or tobacco. These products include cigarettes, chewing tobacco, and vaping devices, such as e-cigarettes. If you need help quitting, ask your health care provider. ? Consider joining a support group. This may help you learn to deal with the stress of having bladder cancer. ? Tell your cancer care team if you develop side effects. Your team may be able to recommend ways to get relief. ? Keep all follow-up visits. This is important. Where to find more information ? [place] [employer] (ACS): cancer.org ? [place] [employer] [place] (NCI): cancer.gov Contact a health care provider if: ? You have symptoms of a UTI. These include: ? Fever. ? Chills. ? Weakness. ? Muscle aches. ? Pain in your abdomen. ? Urge to urinate that is stronger and happens more often than normal. ? Burning in the bladder or urethra when you urinate. Get help right away if: ? There is blood in your urine. ? You cannot urinate. ? You have severe pain or other symptoms that do not go away. Summary ? Bladder cancer is a condition where tumors grow in the bladder. ? Diagnosis is based on your medical history, a physical exam, lab tests, imaging tests, and your symptoms. ? Your health care provider may recommend one or more types of treatment based on the stage of your cancer. ? Consider joining a support group. This may help you learn to deal with the stress of having bladder cancer. This information is not intended to replace advice given to you by your health care provider. Make sure you discuss any questions you have wi (more content not included)... [facility] Urology Office/Clinic Noteon 01-20-2023 Urology Office/Clinic Note Chief Complaint follow up HPI Staff Pt is here today for follow up to Cysto done 01/05/23. Pt has Mills catheter. Previous DX: bladder cancer, H/O kidney stones, H/O prostate cancer, impotence. S/P TURBT done 02/17/22. TURBT done 10/29/21. Cysto/UD done 10/14/21. He states he is here to get his catheter out today. Burning from catheter. Started a couple days ago. Started for irritation the first couple days. This morning pain level for the burning is a 4. Dysuria: _ Incomplete bladder emptying: _ Hematuria: _ Frequency: _ Urgency: _ Nocturia: _ Stream: _ Leaking: _ Post void dripping: _ Wearing pads/ Depends: _ Urge incontinence: _ Stress incontinence: _ Incontinence without Sensory Awareness: _ Abdominal pain: _ Flank pain: _ History of Present Illness Tests reviewed: reviewed path report I have reviewed the previous health record information and history for this patient from Dr. Carrington. I have reviewed and verified the staff HPI to be accurate for this encounter. There have been no associated fever, chills, flank pain, or blood in the urine. Denies any urinary infections since last encounter. Review of Systems PHQ Score Initial Depression Screen Score: 0 ROS - Provider Constitutional: denies weight loss, denies hot flashes. Eyes: denies eye problems. Gastrointestinal: denies nausea, denies vomiting. Cardiovascular: denies chest pain or angina. Integumentary: no dryness Musculoskeletal: denies musculoskeletal symptoms. ENMT: denies otolaryngeal symptoms. Respiratory: no shortness of breath. Heme/Lymph: denies easy bleeding tendency, denies easy bruising tendency. Psychiatric: no confusion, no anxiety. Genitourinary: See HPI. Physical Exam Vitals & Measurements HR: 85(Peripheral) BP: 171/95 HT: 67 in HT: 170.0 cm WT: 83.5 kg WT: 183.7 lb BMI: 28.89 General Appearance: alert, no distress, well nourished, well developed male. Genitourinary: normal scrotum, normal testes, normal urethra, normal epididymis, normal vas deferens/spermatic cord. Flank Pain: none. Bladder: nonpalpable. Assessment/Plan 1. Bladder cancer (C67.9: Malignant neoplasm of bladder, unspecified) Path report from 10/29/2021 is non-invasive, low grade TCC [2]. Cysto TURBT done 02/17/2022. Unclear path. [1] S/p Cysto 01/05/23 and TURBT 01/14/23. The pathology report was reviewed with the patient in detail today. There is no evidence of malignancy and no further evaluation of the tissue removed is planned. All questions were answered and the report discussed in terms that the patient could understand. Will repeat cysto in 3 months. Reports he has been experiencing some bladder spasms with catheter in place. Pt's catheter has been removed in office with no complications. They have been advised to drink plenty of fluids. Pt. has been instructed to call the office in the event that they are not able to void in the next 4-6 hrs. Advised pt. to go to the ER if they experience any severe bleeding, fever over 101, and/or shaking chills. All questions/concerns were discussed. Pt to call the office if he encounters any issues prior. Pt acknowledges understanding. 2. History of prostate cancer (Z85.46: Personal history of malignant neoplasm of prostate) S/p radical prostatectomy 08/2014. PSA 07/05/20 - 0.05 09/12/21 - 0.05 09/21/22 - <0.13 3. History of kidney stones (Z87.442: Personal history of urinary calculi) Denies any stone episodes since prior office visit. Has family hx of stones (sister and son). 4. Impotence (N52.31: Erectile dysfunction following radical prostatectomy) Pt is currently taking Sildenafil 100mg PRN. 4P injection therapy. Follow-up With When Contact Information Lionel CARRINGTON MD, URL [facility] [address], [place] [address]- [phone] Additional Instructions: sched cysto Patient Education Bladder Cancer I, Lilo Zhou, personally scribed for Dr. Carrington on 01/20/2023 11:37:43. . Documentation recorded by the scribe, Lilo Zhou, accurately reflects the services(s) I performed and decisions made by me. Authenticated by Dr. Carrington on 01/20/2023 11:40:53. Problem List/Past Medical History Ongoing Acute gouty arthritis Bladder cancer History of kidney stones History of prostate cancer HTN (hypertension) Impotence Historical Acid reflux Cancer of prostate Procedure/Surgical History TURBT - Transurethral resection of bladder tumor (02/17/2022), TURBT - Transurethral resection of bladder tumor (10/29/2021), Cystourethroscopy with dilation of urethral stricture (10/14/2021), Repair of umbilical hernia (06/22/2017), Arthroscopy of shoulder (05/20/2017), bilateral fifth partial metatarsal osteotomies and Silver Tailor's bunionectomies (08/29/2014), Radical perineal prostatectomy (08/15/2014), Complete repair of rotator cuff (2010), Shoulder reconstruction (1998), Appendectomy (1964), Arthroplasty of th (more content not included)... [facility] Comment on above: Result Comment: Elec tronically Signed By: Lionel CARRINGTON MD\.br\Date and Time Signed: 01/20/23 11:40 EDT\.br\Electronically Co-Signed By: Lilo Zhou\.br\Date and Time Co-Signed: 01/20/23 11:37 EDT Lab Reportson 01-11-2023 Lab Reports [id number] 0CD:127 [facility] Consent for Procedure/Surger yon 01-05-2023 Consent for Procedure/Surgery [id number]. 00CD:127 [facility] Consent for Treatmenton 07- Consent for Treatment [id number] 0CD:127 [facility] IntraOperative Documentson 0 01-05-2023 IntraOperative Documents [id number]. 00CD:127 [facility] Main OR Intraoperative Recor don 01-05-2023 Main OR Intraoperative Record IntraOp Document Type FTURO Summary Primary Physician: Lionel CARRINGTON MD Finalized Date/Time: 01/05/23 10:57:53 Pt. Name: MARY DIAZ/Sex: 1950 Male Med Rec #: [id number] Physician: Lionel CARRINGTON MD Financial #: [id number] Pt. Type: O Room/Bed: / Admit/Disch: 01/05/23 09:57:46 - Institution: Case Times FTURO Entry 1 Patient Times In Room 01/05/23 10:38:00 Out Room 01/05/23 10:54:00 Procedure Times Start 01/05/23 10:41:00 Stop 01/05/23 10:50:00 Anesthesia Times Last Modified By: Edgard ZELAYA, PAULINA, Cheryl 01/05/23 10:51:01 Case Attendance FTURO Entry 1 Entry 2 Entry 3 Case Attendee Lionel CARRINGTON MD RN, EDITHOR, Eulalia GROSS, Zora Luna Role Performed Surgeon - Primary Incident Handler - Primary Scrub - Primary Time In 01/05/23 10:38:00 01/05/23 10:38:00 01/05/23 10:38:00 Time Out 01/05/23 10:54:00 01/05/23 10:54:00 01/05/23 10:54:00 Procedure CYSTOSCOPY LOCAL(.) CYSTOSCOPY LOCAL(.) CYSTOSCOPY LOCAL(.) Comments Last Modified By: Edgard RN, CNOR, Edgard RN, EDITHOR, Edgard ZELAYA, EDITHOR, Cheryl 01/05/23 Cheryl 01/05/23 Cheryl 01/05/23 10:51:02 10:51:02 10:51:02 Surgical Procedures FTURO Entry 1 Procedure Description Procedure CYSTOSCOPY LOCAL Modifiers . Surgeon Description CYSTO Primary Procedure Yes Primary Surgeon Lionel CARRINGTON MD Start 01/05/23 10:41:00 Stop 01/05/23 10:50:00 Anesthesia Type Local Surgical Service Urology Wound Class 2 - Clean-Contaminated Last Modified By: PAULINA Rene RN, Ruthann 01/05/23 10:51:04 General Case Data FTURO Pre-Care Text: Classifies surgical wound, implements aseptic technique, initiates traffic control Entry 1 Case Information OR URO 1 FT Case Level None Wound Class 2 - Clean-Contaminated Specialty Urology Preop Diagnosis HISTORY OF BLADDER Postop Same As Preop No CANCER Postop Diagnosis HISTORY OF BLADDER Outcomes Met? Yes CANCER, clear bladder Last Modified By: PAULINA Rene RN, Ruthann 01/05/23 10:40:14 Post-Care Text: The patient is free from signs and symptoms of infection EU IntraOp - FTURO Pre-Care Text: Implements protective measures prior to operative or invasive procedure, confirms identity before the operative or invasive procedure, verifies operative procedure, surgical site, and laterality Entry 1 EU Perioperative Protocols Procedure(s) CYSTOSCOPY LOCAL(.) Patient Identity Birthday, ID Band Verified (select at Check, Patient least 2): Participation Consents / H and P HandP, Surgery/Procedure Operative Site N/A Verified Consent Marking Verified Surgical Site Yes Laterality Verified n/a Verified Procedure Verified Yes Correct Patient Yes Position Verified Availability Equipment, Medication Time Out Lionel CARRINGTON MD, Verified (If Participants EDITH Rene RNOR, Applicable) Eulalia Luna CST, Julie A Time Out Complete 01/05/23 10:41:00 Allergies Reviewed? Yes Allergies Reviewed Self/Patient With Body Position Supine Prep Area penis Prep Agents Betadine Solution Skin. Condition Unable to Visualize Additional FISH Specimens Collected Vitals - EU Blood Pressure 150/82 Pulse 56 bpm Respirations 16 br/min SPO2 EBL 0 IandO - EU Total Intake 0 mL Total Output 0 mL Outcomes Met? Yes Last Modified By: PAULINA Rene RN, Ruthann 01/05/23 10:44:04 Post-Care Text: The patient is free from signs and symptoms of injury caused by extraneous objects Sign Out FTURO Entry 1 Before Patient Leaves OR Nurse verbally Yes Nurse verbally n/a confirms with the confirms with the team the name of team that the procedure(s) instrument, sponge, recorded and needle counts are correct (or N/A) Nurse verbally Yes Nurse verbally n/a confirms with the confirms with the team how the team whether there specimen is labeled are any equipment (including patient problems to be name), if applicable addressed Sign Out Complete 01/05/23 10:54:00 Last Modified By: PAULINA Rene RN, Ruthann 01/05/23 10:51:12 Case Comments Finalized By: PAULINA Rene RN, Ruthann Document Signatures Signed By: PAULINA Rene RN, Ruthann 01/05/23 10:51 PAULINA Rene RN, Ruthann 01/05/23 10:57 [facility] Main OR Preoperative Recordo n 01-05-2023 Main OR Preoperative Record Holding Area Document Type FTURO Summary Primary Physician: Lionel CARRINGTON MD Finalized Date/Time: 01/05/23 10:43:08 Pt. Name: MARY DIAZ/Sex: 1950 Male Med Rec #: [id number] Physician: Lionel CARRINGTON MD Financial #: [id number] Pt. Type: O Room/Bed: / Admit/Disch: 01/05/23 09:57:46 - Institution: Case Times Holding FTURO Pre-Care Text: Verifies consent for planned procedure, identifies individual values and wishes concerning care, includes family members in perioperative teaching Secures patient's records' belongings, and valuables, maintains patient's dignity and privacy, and maintains patient confidentiality Entry 1 In Holding 01/05/23 10:08:00 Outcomes Met? Yes Last Modified By: Nanci Cortes RN 01/05/23 10:08:13 Post-Care Text: The patient participates in decisions affecting his or her perioperative plan of care The patient's right to privacy is maintained Surgery Checklist FTURO Entry 1 Patient Birthday, ID Band Procedure History and Physical, Identification: Check, Patient Verification: Surgical Consent, With Participation Patient NPO after Midnight: n/a Personal Items: Dentures, Glasses, Jewelry Personal Items UPPER DENTURES, RING X Limitations: UP AD ABIODUN Comment: 1; GLASSES Complaints of Pain: No Skin Integrity Dry, Warm, Bruised Vitals - EU Blood Pressure 150/80 Pulse 56 bpm Respirations 16 br/min SPO2 97 % Additional FISH, Other (See Specimens Comment FISH AND CYTOLOGY - Specimens Collected Comment) NEED MORE URINE FOR TEST RN Reviewed Yes Last Modified By: Nanci Cortes RN 01/05/23 10:13:05 General Comments: TEMP 36.0; MULTIPLE AREAS OF ECCHYMOSIS TO BILATERAL ARMS NATHALIE WELLS Finalized By: Edgard ZELAYA, Cheryl GALLARDO Document Signatures Signed By: Nanci Cortes RN 01/05/23 10:16 Nanci Cortes RN 01/05/23 10:13 Nanci Cortes RN 01/05/23 10:16 Nanci Cortes RN 01/05/23 10:15 Nanci Cortes RN 01/05/23 10:13 PAULINA Rene RN, Ruthann 01/05/23 10:43 [facility] Operative Reporton Operative Report Patient: MARY DIAZ Age: 72 years Sex: Male : 1950 Associated Diagnoses: None Author: Lionel CARRINGTON MD Procedure Operative Information Details: Date/ Time: 01/05/2023 10:57:00. Pre-Op Dx: Hx of Bladder CA - Z85.51. Post-Op Dx: Same. Anesthesia Type: Local. Procedure: Local Cystoscopy. Complications: None. Risks/Benefits/Informe d Consent: Surgical risks, benefits, details of the procedure have been explained to the patient, Full informed consent has been obtained. Intraoperative Information Prepped: Patient is brought back to the endoscopy suite, Patient is placed in supine position, Patient prepped in the usual fashion with Betadine solution, 2% Xylocaine Jelly is placed per Urethra, After waiting several minutes the Cystoscope is introduced. The Urethra is: Normal. The Prostatic Urethra is: Absent. The Bladder is: Abnormal, Prior areas of resection from nearly 1 year ago show copious necrotic tissue persisting. No new bladder tumor areas noted.. The ureteral orifices: Show efflux of clear urine. Specimens Removed: Bladder wash sent for FISH and Cytology test. Devices Implanted: None. Removal: Cystoscope is removed, The patient tolerated it well. Postoperative Information Discharge: Patient is discharged home with antibiotic coverage, Follow up arranged. Will resect these areas again to remove all the necrotic tissue and make sure no new tumor has developed in these areas.. Normal [facility] Comment on above: Result Comment: Elec tronically Signed By: DEVONTE NOBLE, Lionel Ernandez\Date and Time Signed: 01/05/23 10:59 EDT [facility] Fish and Urine Cyt o ([facility])on 01-05-2023 [facility] Method of Extraction Bladder Wash Normal [facility] Comment on above: Performed By: #### 1 [id number] #### [facility] [address] [place] [address] [facility] Number of Jars 1 Invalid Interpretation Code [facility] Comment on above: Performed By: #### 1 [id number] #### [facility] [address] [place] [address] [facility] Specimen Urine Normal [facility] Comment on above: Performed By: #### 1 [id number] #### [facility] [address] [place] [address] [facility] Type of Service Technical Only Normal [facility] Comment on above: Performed By: #### 1 [id number] #### [facility] [address] [place] [address] MR lumbar spine wo conon MR lumbar spine wo [facility] [place] [id number] MRI Report Signed Patient: Mary Diaz MR#: [id number] : 1950 Acct:[id number] Age/Sex: 72 / M ADM Date: 01/01/23 Loc: MR Room: Type: [facility] Attending Dr: Zoran Chavez MD Copies to: Zoran Chavez MD Ordering Provider: Zoran Chavez MD Date of Service: 01/01/23 MR/MR lumbar spine wo con: M54.50 MR lumbar spine wo con 01/01/2023 10:56 AM SIGNS AND SYMPTOMS: Low back pain radiating into bilateral lower extremities, right greater than left PROTOCOL: Multiplanar multisequence MR images of the lumbar spine were obtained without IV contrast. COMPARISON: 10/23/2022 FINDINGS: The bones of the lumbar spine are in anatomic alignment. There is preservation of vertebral body heights. There is mild disc height loss at L1-L2, L2-L3, and L3-L4. There is moderate disc height loss at L4-5 and L5-S1. There is Modic type II fatty endplate degenerative change at L4-L5. The conus terminates at the inferior endplate of the L1 vertebral body level. No epidural or paraspinous fluid collection is appreciated. At T12-L1: There is a normal disc, central canal, and neural foramen. At L1-L2: There is a broad-based disc bulge. There is mild spinal canal narrowing At L2-L3: There is mild bilateral neural foraminal narrowing. There is a broad-based disc bulge with facet hypertrophy and bilateral facet effusions. There is mild spinal canal narrowing At L3-L4: With mild bilateral neural foraminal narrowing. There is a broad-based disc bulge with facet. There is moderate spinal canal stenosis with mild to moderate bilateral neural foraminal narrowing. At L4-L5: There is a circumferential disc bulge with facet hypertrophy contributing to moderate narrowing of spinal canal. There is endplate osteophyte formation contributing to moderate to severe right neural foraminal narrowing and moderate left neural foraminal narrowing. This mild mass effect on the exiting right L4 nerve roots. At L5-S1: There is a circumferential disc bulge with facet hypertrophy and facet effusions. There is endplate osteophyte formation. There is severe right and moderate to severe left neural foraminal narrowing. There is mass effect on the exiting right L5 nerve roots. MR/MR lumbar spine wo con IMPRESSION: At L4-L5: There is a circumferential disc bulge with facet hypertrophy contributing to moderate narrowing of spinal canal. There is endplate osteophyte formation contributing to moderate to severe right neural foraminal narrowing and moderate left neural foraminal narrowing. This mild mass effect on the exiting right L4 nerve roots. At L5-S1: There is a circumferential disc bulge with facet hypertrophy and facet effusions. There is endplate osteophyte formation. There is severe right and moderate to severe left neural foraminal narrowing. There is mass effect on the exiting right L5 nerve roots. Lesser degrees of degenerative changes are noted, as above. Impression dictated by: Jamaica Alas M.D.01/01/2023 2:48 PM Dictation Location: [place] [address] Transcribed By: [facility] 01/01/23 1448 Dictated By: Jamaica Alas II, MD 01/01/23 144 Signed By: 01/01/23 1448 [facility] Retail - Clinical Noteon Retail - Clinical Note [id number] 0CD:127 Normal [facility] XR CSPINE MIN 4 VIEWSon 05-0 XR CSPINE MIN 4 VIEWS EXAMINATION: XR CS PINE MIN 4 VIEWS HISTORY: Cervical spondylosis without myelopathy COMPARISON: XR C-spine 10/09/2020 FINDINGS: BONES: Posterior mechanical fusion of C7-T1 via bilateral pedicle screws and rods; no visible hardware fracture or loosening. Mild grade 1 anterolisthesis of C3 on 4. No change in alignment during flexion and extension. DISC SPACES: Mild narrowing C3-4. Marked narrowing C5-6, C6-7. Posterior disc-osteophyte complexes and uncovertebral joint spurring at most levels causing central canal and foramen narrowing. PARASPINOUS: Negative. No paraspinous abnormality is seen. OTHER: Negative. IMPRESSION: 1. Mechanical fusion C7-T1; grossly stable. 2. Multilevel moderate marked degenerative disc disease and degenerative facet arthropathy; grossly stable. Electronically authenticated by: ALLI CORTES Date: 2022-10-23 11:53 Normal [facility] XR LSPINE W_OBLS AND FLEX_EX Ton 10-23-2022 XR LSPINE W_OBLS AND FLEX_EXT EXAM: XR LSPINE W_OBLS AND FLEX_EXT HISTORY: Low back pain COMPARISON: None. TECHNIQUE: 2 views Findings/impression: Retrolisthesis of L2 over L3 by 4 mm. Multilevel endplate degenerative changes, disc disease, and anterior spurring. Calcified atherosclerotic disease of aorta. No acute fracture. Electronically authenticated by: JAMAICA GONZALEZ Date: 2022-10-23 13:18 Normal [facility] BNPon 10-06-2022 Natriuretic peptide B (Bld) [Mass/Vol] 844.0 pg/mL Normal <=900.0 [facility] Comment on above: Performed By: #### C VDTB #### [facility] [address] [place] [address] Dr. Johnna Dixon CBC AUTO DIFFon 10-06-2022 BASO # 0.0 103/ul Normal 0.0-0.1 [facility] Comment on above: Performed By: #### C BC #### [facility] [address] [place] [address] Dr. Johnna Dixon Basophils/100 WBC (Bld) 0.0 % Critically low 0.2-2.0 [facility] Comment on above: Performed By: #### C BC #### [facility] [address] [place] [address] Dr. Johnna Dixon EO # 0.0 103/ul Normal 0.0-0.7 [facility] Comment on above: Performed By: #### C BC #### [facility] [address] [place] [address] Dr. Johnna Dixon Eosinophils/100 WBC (Bld) 0.0 % Critically low 0.9-7.0 [facility] Comment on above: Performed By: #### C BC #### [facility] [address] [place] [address] Dr. Johnna Dixon Erythrocyte distribution width (RBC) [Ratio] 13.9 % Normal 11.0-15.0 [facility] Comment on above: Performed By: #### C BC #### [facility] [address] [place] [address] Dr. Johnna Dixon Hematocrit (Bld) [Volume fraction] 33.6 % Critically low 42.0-54.0 [facility] Comment on above: Performed By: #### C BC #### [facility] [address] [place] [address] Dr. Johnna Dixon Hemoglobin (Bld) [Mass/Vol] 11.1 g/dL Critically low 14.0-18.0 [facility] Comment on above: Performed By: #### C BC #### [facility] [address] [place] [address] Dr. Johnna Dixon IG # 0.03 10e3/ul Normal 0.00-0.03 [facility] Comment on above: Performed By: #### C BC #### [facility] [address] [place] [address] Dr. Johnna Dixon IG % 0.5 % Normal 0.0-0.5 [facility] Comment on above: Performed By: #### C BC #### [facility] [address] [place] [address] Dr. Johnna Dixon LYMPH # 0.7 103/ul Critically low 1.2-3.8 [facility] Comment on above: Performed By: #### C BC #### [facility] [address] [place] [address] Dr. Johnna Dixon Lymphocytes/100 WBC (Bld) 11.5 % Critically low 20.5-60.0 [facility] Comment on above: Performed By: #### C BC #### [facility] [address] [place] [address] Dr. Johnna Dixon MANUAL DIFF REQ NO Normal [facility] Comment on above: Performed By: #### C BC #### [facility] [address] [place] [address] Dr. Johnna Dixon MCH (RBC) [Entitic mass] 31.0 pg Normal 25.9-34.0 [facility] Comment on above: Performed By: #### C BC #### [facility] [address] [place] [address] Dr. Johnna Dixon MCHC (RBC) [Mass/Vol] 33.0 g/dL Normal 29.9-35.2 [facility] Comment on above: Performed By: #### C BC #### [facility] [address] [place] [address] Dr. Johnna Dixon MCV (RBC) [Entitic vol] 93.9 fL Normal 80.0-94.0 [facility] Comment on above: Performed By: #### C BC #### [facility] [address] [place] [address] Dr. Johnna Dixon MONO # 0.3 103/ul Normal 0.3-0.8 [facility] Comment on above: Performed By: #### C BC #### [facility] [address] [place] [address] Dr. Johnna Dixon Monocytes/100 WBC (Bld) 4.5 % Normal 1.7-12.0 [facility] Comment on above: Performed By: #### C BC #### [facility] [address] [place] [address] Dr. Johnna Dixon NEUT # 5.0 103/ul Normal 1.4-6.5 [facility] Comment on above: Performed By: #### C BC #### [facility] [address] [place] [address] Dr. Johnna Dixon Neutrophils/100 WBC (Bld) 83.5 % Critically high 43.0-75.0 [facility] Comment on above: Performed By: #### C BC #### [facility] [address] [place] [address] Dr. Johnna Dixon Platelet mean volume (Bld) [Entitic vol] 10.3 fL Normal 9.5-13.5 [facility] Comment on above: Performed By: #### C BC #### [facility] [address] [place] [address] Dr. Johnna Dixon PLT 184 103/ul Normal 150-450 [facility] Comment on above: Performed By: #### C BC #### [facility] [address] [place] [address] Dr. Johnna Dixon RBC 3.58 106/ul Critically low 4.70-6.10 [facility] Comment on above: Performed By: #### C BC #### [facility] [address] [place] [address] Dr. Johnna Dixon WBC 6.0 103/ul Normal 4.0-11.0 [facility] Comment on above: Performed By: #### C BC #### [facility] [address] [place] [address] Dr. Johnna Dixon PROF 14(COMP METB)on 023 Albumin [Mass/Vol] 2.7 g/dL Critically low 3.4-5.0 [facility] Comment on above: Performed By: #### C VDTBH #### [facility] [address] [place] [address] [address] Johnna Dixon Albumin/Globulin [Mass ratio] 0.9 {ratio} Normal [facility] Comment on above: Performed By: #### C VDTBH #### [facility] [address] [place] [address] [address] Johnna Dixon ALP [Catalytic activity/Vol] 32 U/L Critically low 46-116 [facility] Comment on above: Performed By: #### C VDTBH #### [facility] [address] [place] [address] Dr. Johnna Dixon ALT [Catalytic activity/Vol] 19 U/L Normal 16-63 [facility] Comment on above: Performed By: #### C VDTBH #### [facility] [address] [place] [address] Dr. Johnna Dixon Anion gap [Moles/Vol] 14.0 mmol/L Normal [facility] Comment on above: Performed By: #### C VDTBH #### [facility] [address] [place] [address] Dr. Johnna Dixon AST [Catalytic activity/Vol] 12 U/L Critically low 15-37 [facility] Comment on above: Performed By: #### C VDTBH #### [facility] [address] [place] [address] Dr. Johnna Dixon Bilirubin [Mass/Vol] 0.6 mg/dL Normal 0.2-1.0 [facility] Comment on above: Performed By: #### C VDTBH #### [facility] [address] [place] [address] Dr. Johnna Dixon Calcium [Mass/Vol] 8.3 mg/dL Critically low 8.5-10.1 [facility] Comment on above: Performed By: #### C VDTB #### [facility] [address] [place] [address] [address] Johnna Dixon Chloride [Moles/Vol] 107 mmol/L Normal 98-107 [facility] Comment on above: Performed By: #### C VDTBH #### [facility] [address] [place] [address] [address] Johnna Dixon CO2 [Moles/Vol] 24.9 mmol/L Normal 21.0-32.0 [facility] Comment on above: Performed By: #### C VDTBH #### [facility] [address] [place] [address] [address] Johnna Dixon Creatinine [Mass/Vol] 1.20 mg/dL Normal 0.70-1.30 [facility] Comment on above: Performed By: #### C VDTBH #### [facility] [address] [place] [address] Dr. Johnna Dixon EGFR-AF TUVALUAN >60 Normal >=60 [facility] Comment on above: Performed By: #### C VDTBH #### [facility] [address] [place] [address] Dr. Johnna Dixon EGFR-NON AF TUVALUAN 60 mL/min/1.73m2 Normal >=60 [facility] Comment on above: Performed By: #### C VDTBH #### [facility] [address] [place] [address] Dr. Johnna Dixon Globulin (S) [Mass/Vol] 2.9 g/dL Normal [facility] Comment on above: Performed By: #### C VDTBH #### [facility] [address] [place] [address] Dr. Johnna Dixon Glucose [Mass/Vol] 153 mg/dL Critically high 74-106 [facility] Comment on above: Performed By: #### C VDTBH #### [facility] [address] [place] [address] Dr. Johnna Dixon Potassium [Moles/Vol] 3.9 mmol/L Normal 3.5-5.1 [facility] Comment on above: Performed By: #### C VDTBH #### [facility] [address] [place] [address] Dr. Johnna Dixon Protein [Mass/Vol] 5.6 g/dL Critically low 6.4-8.2 [facility] Comment on above: Performed By: #### C VDTBH #### [facility] [address] [place] [address] Dr. Johnna Dixon Sodium [Moles/Vol] 142 mmol/L Normal 136-145 [facility] Comment on above: Performed By: #### C VDTBH #### [facility] [address] [place] [address] Dr. Johnna Dixon Urea nitrogen [Mass/Vol] 14.0 mg/dL Normal 7.0-18.0 [facility] Comment on above: Performed By: #### C VDTBH #### [facility] [address] [place] [address] Dr. Johnna Dixon Urea nitrogen/Creatinine [Mass ratio] 11.7 mg/mg Normal [facility] Comment on above: Performed By: #### C VDTBH #### [facility] [address] [place] [address] Dr. Johnna Dixon CBC AUTO DIFFon 10-05-2022 BASO # 0.0 103/ul Normal 0.0-0.1 [facility] Comment on above: Performed By: #### S PUTGS #### [facility] [address] [place] [address] Dr. Johnna Dixon Basophils/100 WBC (Bld) 0.2 % Normal 0.2-2.0 [facility] Comment on above: Performed By: #### S PUTGS #### [facility] [address] [place] [address] Dr. Johnna Dixon EO # 0.0 103/ul Normal 0.0-0.7 [facility] Comment on above: Performed By: #### S PUTGS #### [facility] [address] [place] [address] Dr. Johnna Dixon Eosinophils/100 WBC (Bld) 0.2 % Critically low 0.9-7.0 [facility] Comment on above: Performed By: #### S PUTGS #### [facility] [address] [place] [address] Dr. Johnna Dixon Erythrocyte distribution width (RBC) [Ratio] 14.1 % Normal 11.0-15.0 [facility] Comment on above: Performed By: #### S PUTGS #### [facility] [address] [place] [address] Dr. Johnna Dixon Hematocrit (Bld) [Volume fraction] 39.9 % Critically low 42.0-54.0 [facility] Comment on above: Performed By: #### S PUTGS #### [facility] [address] [place] [address] Dr. Johnna Dixon Hemoglobin (Bld) [Mass/Vol] 12.8 g/dL Critically low 14.0-18.0 [facility] Comment on above: Performed By: #### S PUTGS #### [facility] [address] [place] [address] Dr. Johnna Dixon IG # 0.01 10e3/ul Normal 0.00-0.03 [facility] Comment on above: Performed By: #### S PUTGS #### [facility] [address] [place] [address] Dr. Johnna Dixon IG % 0.2 % Normal 0.0-0.5 [facility] Comment on above: Performed By: #### S PUTGS #### [facility] [address] [place] [address] Dr. Johnna Dixon LYMPH # 0.7 103/ul Critically low 1.2-3.8 [facility] Comment on above: Performed By: #### S PUTGS #### [facility] [address] [place] [address] Dr. Johnna Dixon Lymphocytes/100 WBC (Bld) 14.3 % Critically low 20.5-60.0 [facility] Comment on above: Performed By: #### S PUTGS #### [facility] [address] [place] [address] Dr. Johnna Dixon MANUAL DIFF REQ NO Normal [facility] Comment on above: Performed By: #### S PUTGS #### [facility] [address] [place] [address] [address] Johnna Dixon MCH (RBC) [Entitic mass] 30.7 pg Normal 25.9-34.0 [facility] Comment on above: Performed By: #### S PUTGS #### [facility] [address] [place] [address] [address] Johnna Dixon MCHC (RBC) [Mass/Vol] 32.1 g/dL Normal 29.9-35.2 [facility] Comment on above: Performed By: #### S PUTGS #### [facility] [address] [place] [address] Dr. Johnna Dixon MCV (RBC) [Entitic vol] 95.7 fL Critically high 80.0-94.0 [facility] Comment on above: Performed By: #### S PUTGS #### [facility] [address] [place] [address] Dr. Johnna Dixon MONO # 0.6 103/ul Normal 0.3-0.8 [facility] Comment on above: Performed By: #### S PUTGS #### [facility] [address] [place] [address] Dr. Johnna Dixon Monocytes/100 WBC (Bld) 12.5 % Critically high 1.7-12.0 [facility] Comment on above: Performed By: #### S PUTGS #### [facility] [address] [place] [address] Dr. Johnna Dixon NEUT # 3.6 103/ul Normal 1.4-6.5 [facility] Comment on above: Performed By: #### S PUTGS #### [facility] [address] [place] [address] Dr. Johnna Dixon Neutrophils/100 WBC (Bld) 72.6 % Normal 43.0-75.0 [facility] Comment on above: Performed By: #### S PUTGS #### [facility] [address] [place] [address] Dr. Johnna Dixon Platelet mean volume (Bld) [Entitic vol] 9.5 fL Normal 9.5-13.5 [facility] Comment on above: Performed By: #### S PUTGS #### [facility] [address] [place] [address] [address] Johnna Dixon PLT 213 103/ul Normal 150-450 [facility] Comment on above: Performed By: #### S PUTGS #### [facility] [address] [place] [address] Dr. Johnna Dixon RBC 4.17 106/ul Critically low 4.70-6.10 [facility] Comment on above: Performed By: #### S PUTGS #### [facility] [address] [place] [address] [address] Johnna Dixon WBC 5.0 103/ul Normal 4.0-11.0 [facility] Comment on above: Performed By: #### S PUTGS #### [facility] [address] [place] [address] Dr. Johnna Dixon CULTURE BLOODon 10-05-2022 Microscopic examination of blood, culture Culture Observations: NO GROWTH AT 5 DAYS. Normal [facility] Comment on above: Performed By: #### B LDCX2 #### [facility] [address] [place] [address] Dr. Johnna Dixon Microscopic examination of blood, culture Culture Observations: NO GROWTH AT 5 DAYS. Normal [facility] Comment on above: Performed By: #### S PUTGS #### [facility] [address] [place] [address] Dr. Johnna Dixon CULTURE SPUTUMon 10-05-2022 CULTURE SPUTUM Culture Observations : NORMAL RESPIRATORY JONATAN. Normal [facility] Comment on above: Performed By: #### S PUTGS #### [facility] [address] [place] [address] Dr. Johnna Dixon Covid-19 PCR (CVDTB)on 09-19 SARS-CoV-2 (COVID-19) RNA REX+probe Ql (Unsp spec) Not detected Normal NOT DETECTED [facility] Comment on above: Result Comment: This test is not yet approved or cleared by the [place] FDA. When there are no FDA-approved or cleared tests available, and other criteria are met, FDA can make tests available under an emergency access mechanism called an Emergency Use Authorization (EUA). The EUA for this test is supported by the [place] of Health and Human Service's (HHS's) declaration that circumstances exist to justify the emergency use of in vitro diagnostics for the detection and/or diagnosis of the virus that causes COVID-19. This EUA will remain in effect (meaning this test can be used) for the duration of the COVID-19 declaration justifying emergency of IVDs, unless it is terminated or revoked by FDA (after which the test may no longer be used). When diagnostic testing is negative, the possibility of a false negative should be considered in the context of a patient's recent exposures and the presence of clinical signs and symptoms consistent with SARS-CoV-2. Performed By: #### C VDTB #### [facility] [address] [place] [address] Dr. Johnna Dixon LACTATE/LACTIC ACIDon 2022 Lactate [Moles/Vol] 1.2 mmol/L Normal 0.4-2.0 [facility] Comment on above: Performed By: #### L ACT #### [facility] [address] [place] [address] Dr. Johnna Dixon Lactate [Moles/Vol] 2.4 mmol/L Critically high 0.4-2.0 [facility] Comment on above: Performed By: #### L ACT #### [facility] [address] [place] [address] Dr. Johnna Dixon Lab Reportson 10-05-2022 Lab Reports [id number] 0CD:127 Normal [facility] PROF CHEM 8 (BAS METB)on Anion gap [Moles/Vol] 12.6 mmol/L Normal [facility] Comment on above: Performed By: #### B MP #### [facility] [address] [place] [address] Dr. Johnna Dixon Calcium [Mass/Vol] 8.9 mg/dL Normal 8.5-10.1 [facility] Comment on above: Performed By: #### B MP #### [facility] [address] [address] [address] Johnna Dixon Chloride [Moles/Vol] 106 mmol/L Normal 98-107 [facility] Comment on above: Performed By: #### B MP #### [facility] [address] [address] [address] Johnna Dixon CO2 [Moles/Vol] 25.8 mmol/L Normal 21.0-32.0 [facility] Comment on above: Performed By: #### B MP #### [facility] [address] [address] [address] Johnna Dixon Creatinine [Mass/Vol] 1.41 mg/dL Critically high 0.70-1.30 [facility] Comment on above: Performed By: #### B MP #### [facility] [address] [address] [address] Johnna Dixon EGFR-AF TUVALUAN >60 Normal >=60 [facility] Comment on above: Performed By: #### B MP #### [facility] [address] [address] [address] Johnna Dixon EGFR-NON AF TUVALUAN 50 mL/min/1.73m2 Critically low >=60 [facility] Comment on above: Performed By: #### B MP #### [facility] [address] [place] [address] Dr. Johnna Dixon Glucose [Mass/Vol] 111 mg/dL Critically high 74-106 [facility] Comment on above: Performed By: #### B MP #### [facility] [address] [address] [address] Johnna Dixon Potassium [Moles/Vol] 3.4 mmol/L Critically low 3.5-5.1 [facility] Comment on above: Performed By: #### B MP #### [facility] [address] [address] [address] Johnna Dixon Sodium [Moles/Vol] 141 mmol/L Normal 136-145 [facility] Comment on above: Performed By: #### B MP #### [facility] [address] [address] [address] Johnna Dixon Urea nitrogen [Mass/Vol] 17.0 mg/dL Normal 7.0-18.0 [facility] Comment on above: Performed By: #### B MP #### [facility] [address] [address] [address] Johnna Dixon Urea nitrogen/Creatinine [Mass ratio] 12.1 mg/mg Normal [facility] Comment on above: Performed By: #### B MP #### [facility] [address] [address] [address] Johnna Dixon SPUTUM GRAM STAINon 10-06-19 COMMENTS Normal [facility] Comment on above: Performed By: #### S PUTGS #### [facility] [address] [place] [address] Dr. Johnna Dixon DIPHTHEROIDS [facility] Comment on above: Performed By: #### S PUTGS #### [facility] [address] [place] [address] Dr. Johnna Dixon EPITHELIALS <25 Normal [facility] Comment on above: Performed By: #### S PUTGS #### [facility] [address] [place] [address] Dr. Johnna Dixon FUNGAL ELEMENTS [facility] Comment on above: Performed By: #### S PUTGS #### [facility] [address] [place] [address] Dr. Johnna Dixon GRAM NEG BACILLI FEW [facility] Comment on above: Performed By: #### S PUTGS #### [facility] [address] [place] [address] Dr. Johnna Dixon GRAM NEG DIPPLOCOCCI Normal [facility] Comment on above: Performed By: #### S PUTGS #### [facility] [address] [address] [address] Johnna Dixon GRAM POS BACILLI [facility] Comment on above: Performed By: #### S PUTGS #### [facility] [address] [place] [address] Dr. Johnna Dixon GRAM POSITIVE COCCI FEW Normal [facility] Comment on above: Performed By: #### S PUTGS #### [facility] [address] [place] [address] Dr. Johnna Dixon WBC (Bld) [#/Vol] 10*3/uL Normal [facility] Comment on above: Performed By: #### S ANA #### [facility] [address] [place] [address] Dr. Johnna Dixon SYMPTOMATIC COVID-19 ANTIGEN on 10-05-2022 EUA Statement SEE BELOW Normal [facility] Comment on above: Result Comment: This test has not been FDA cleared or approved, but has been authorized by the FDA under an Emergency Use Authorization (EUA) for use by authorized laboratories certified under CLIA that meet the requirements to perform moderate or high complexity testing. This test has been authorized only for the detection of proteins from SARS-CoV-2, not for any other viruses or pathogens. The emergency use of this test is authorized for the duration of the declaration that circumstances exist justifying the authorization of emergency use of in vitro diagnostic tests for detection and/or diagnosis of Covid-19 under section 564(b)(1) of the Act, 21 U.S.C. 360bbb-3(b)(1), unless the declaration is terminated or authorization is revoked sooner. Performed By: #### C GREERS #### [facility] [address] [place] [address] Dr. Johnna Dixon SARS-CoV-2 (COVID-19) RNA REX+probe Ql (Unsp spec) Negative Normal NEGATIVE [facility] Comment on above: Performed By: #### C VDMIKALAS #### [facility] [address] [place] [address] Dr. Johnna Dixon XR CHEST 1 Von 10-05-2022 XR CHEST 1 V EXAMINATION: XR CHES T 1 V HISTORY: COUGH COMPARISON: 05/25/2022 TECHNIQUE: AP portable FINDINGS: LUNGS: Right basilar infiltrate partially obscuring the right hemidiaphragm and right heart border. The left lung is clear VASCULATURE: No increased pulmonary vasculature. PLEURA: No pneumothorax, effusion, or pleural thickening. CARDIAC: No cardiomegaly or cardiac silhouette abnormality. MEDIASTINUM: No visible mass or adenopathy. BONES: No fracture or visible bone lesion. OTHER: Negative. IMPRESSION: Focal right basilar infiltrate, consider right middle and right lower lobe pneumonia Electronically authenticated by: SOCORRO SERRANO Date: 2022-10-05 11:44 Normal [facility] Coding Summary.on 10-01-2022 Coding Summary. CD:[id number] Ww +PGhlYWQ+PT5ZOSRcO53be VOgoG4jX4MUDHeWBclcGVD VCTiFUaYjdiXfPH8jiGBbZ XJu IC8+KX1pVJFtOcultWJiz1 I3gOW6K82rjg0iHXvnuCQ4 RPFeDeXymlnaa5ylcCf2SL cuNmluOyBt IKIbcM81PEK3cS59Jw08dD XptRAbj0tefYk3GkGqDRKj XJK0qEbiGLvor5CaSHOiV4 0kuFCbg5J9 JXNabUxfkYCrSpQtzPG1oD 1bRTnsksfbw1vfngxmCzs2 hn59uLZnd1G7xDG2G3Mbhi V8BHAwtTXz XlqchPEHnA0emoerz9tyzl myQbHeECIjWYy1ADu9QOLr zLnzGeCzAQ14JDM9WEOrwm OtK3ZfEUSh rNqfQiQ7q9F4Ov7YM7IUUq rhF4CCIVVVFNqziVR+PC90 ap56Q1PdAkasFbl7TSEtBQ I9hYD4oB0g XCLgXVnlq8Y9zBB5N6Ipwt Vwyu8dn6zxSYRyOKczV53w sSRys5J2FODveHU6PHDpfL mkFkCkcK53 Oyc+SDUqeUwnn6GbVmosd3 kkd6diqPr0FnmyTCMwslRn wAjhQVS1p6VwBp5zVTEsiJ F0lOB6pL6n WnJoIkK7AJeoR134XeYeaS WgRgymN66xA1DhvZQ+PHRy Fqd6NGPvmInkFE5bM7FgOS RpbmctbGVm rCpaII5nDIWejpokIASllR 5eOZDyA5p1FzJfAxP0ANkk B8HkDYAxmkavVm64tR3bKk TtLrW7UShm I8TljjI1DIOcyXTnFRyuXR N8S45ow0K3GOGgXHFbIYH4 vON3aQ7thUfljdezeDNaeY sgdmVydGlj NOusLDiiA450ZKIbdRpuIx NvZGluZyBEYXRlOiAgMDQv MTMvMjAyMzwvdGQ+PHRkIH H2wTrrSQRn yNElOKknBf3bxGgerJjhTF 3mYTPbdiglLQBjqC9rFJKf zLVskXujFH3lWMFruzudp8 16QuUgCZR9 RCGvaIAvR4KiwV3gCwFkUG RlZICoP2PfdZUmJBtkK707 PNcqMsR7HZPhsoCfT2LqCH FsaWduOiB0 l4F8Ut3Pk4OhyjsrW5XtqX JeSqRoNhajIWh1K4KdOzis dHI+SW96KXTxTQ57IUt6WV Q4gXlhMMlq WAAwI6NflR0jQmJeBYTwCC RkOyc+PHRhYmxlIHdpZHRo BBtwJICqOwLbqYcrIE5mYh 9yZGVyLWNv gKohsYQjTkVho5ziLCUmSK blLM4ztDotM3MygWU6ONCk x7h2Wl15O69jG2AexCY+PG XfxFG3jRO2 hH9wJoQeIuT2FCvfR973Rj MgzTUzRyfyn9cuu4wfxDa2 PtH1XEGogzYsaVjuWSY7t3 RvKr20J27c IHdpZHRoPSIxNSUiIHZhbG umfo2nrS0rHr6+PGNvbCB3 uUY1nL7tCaMvXyR9XXaaE6 49InRvcCIv Ghhay6itv7xmbOf4EgLsWX UndgDbcSgaLFQ4m1YmSz44 X2GmwYhnf1IfLwx1vw01dB Afd2E2vFI9 E0ZvCICllgghsMLnxKhaIJ 0sLYIkakkvLNPyjB6sTAGf H1a2JkWtPlP2SEgcP4Uxwm U3SDOwmHXu OSDiuXAJtI3oatuil1mwji meQkRrXVJgOBy8FHx8HODl aTnhCkXlYSK3TrO7UDB3pL NywH3eaDms isdreF0jMzv+BCT1uYVtdP GPYZ2iCfzliMK+PHRkIHN0 pHvfPJciGUHtaS8wWQCnT2 w4DrCbUcC3 YCjfS5SozgU7OSYrzHGdCV KddJTYyF8rrgppp2ylofdc TpVtDVZgTEu0QJw9BUImsW duOiBsZWZ0 PcH7NLH4rCUhvX9fcCgcsh blxH8ePxg+QmlydGggRGF0 SIa9X1IvHpe6SWOwdHvhOG 0ncGFkZGlu Xu8fyMhshOzxUF9eHCRttr qdf353TfXyc5olMOHstNFa NPbfRST0X59jt2Z3QYIaBL YmYIU6yMB8 xT8okApdxhqqxBKsjOdoak BcaOyrUZpmVVhrW936UHEp wHjoNeGvLEu6L7CrVxn8ZS LlyAksMR3i xCPcNKzoCb0kzOqcuFslLH 1tARTbitxov317SxKuv0an SVMveQQhHKzjANI5B93qn6 I4ALGbQOPl SWT2pZG8gU7fcLvkmkwbcF VmdDsgdmVydGljYWwtYWxp G048KAYfjVebKjPeiMx0O5 IcXsd0ADQy eIsrWE6cqOTvQNjeJv0fcU egnZeuUI5fSGSkrgwne529 LwPzw0emOOYlmQNeHAjdGC O3B04ju9T9 AUByFSAhHUU1rCU6zU3zaZ lnbjogbGVmdDsgdmVydGlj HLnaCPrnM075AEStoRayIh BhdGllbnQg UZovUBh9X3VwJvhvmFC+PC 58OJYyKM99qZJvpPSbs7ki tMn2TiPoRXFxHUO3eAzaVN rdn2DgADHi D20dhLChh9A8UWIezRpemR PwMgVjjLJ9oB6lLXuvmiov z7eqnboqOrxtk5ubcp06lZ 41E35wJQxj ZHRoPSIzMCUiIHZhbGlnbj 8isT5kCs0+ANTieQZ6nWJ3 tW7oIBQfIfP7ZSgeS033Ss RvcCIvPjxj t3vpv5ryqOr8CnL3NQVtwx PrrPwmIGY1h0CxEr00U70t IHdpZHRoPSIyMCUiIHZhbG rper4qnG3u Ii8+WLPmvSE4hIT1hL5lKg QcOcK8EOobT973QtWwmOOl ZtrgY85vZ1EehTA+PHRyPj u7XQHnaCny QE1bdOVrDZwiGq9iDDY7Ut QvEgTkDPvwP6RzVNKbfyjr ztuvmUR1RTAoSNMojG60Yz 9udDogMTBw xUDVhJ3lzhhzw3pcdhnfKi GqAXFgAEd1GEa4XCJtgGol VkKxSOK7TrT9YYM8xOBmvP 1hbGlnbjog fJ7yR6EdJGRkpnktAl39mK 0sMaGqTbS2CWufAxx+S0xJ IefVWVTiHFlIKQPJTA33K6 MyNat2TEGd cVuwHH7ewOUrHPpoIu0ejQ wqyVnxUP0qGPCqcwicCVEd mU6fOWCsvSYwhPvtJM5kRL Hqqbqwz436 PqSvRSD1EWFdcUKyX8PykT 6dRuQwRIPfCWIiX2GffVJi VEpoH902ZOwjHkB8KBZpyd JcC6MaULEo fJxfPlX2g6D9Rz7hJO2zEM 7lYMIfOI48RE21eVBcj8W2 pPU5X3CuWSCbiupjoqhtyA S9SQFqCLEc kD65eKBcEXkoYr7go7O3a0 92YKOcUJKagH54Sd1oaDzn JNFjkCJTcX8vuzxlz5afwi ogIzAwMDAw YTh7BOy4HGCkkDvzFoYvJN J8SrM6EAH5gCBlaC3qgBnc nkcikA9yAad+NzEgWWVhcn Q2S4GiSwl5 LUJidCxjPO6crLQbXJwvUy 7euAumxGaxVY8vRPFaaclx WUQfmI9gHVRyvNIhpVhwDY 4wNTBpbjtm p076KfMjYWI0ZMMryUCvN1 DxfT5dBjWhEAVyMFSiF9Ah fIIqPKmlY646KDekBhV2UH ZucmYjB5Pe VBWqyRlnBcT7i1K7Yc2BGN pvFZ68RP08eBNub5O4mUH1 S7PpDBWblbdpzpvowPR9AG TzJMVibW02 bNXfOLmlGd8cc5O3n932DI GdYKIhnV62Wf6ucWlyRCKk bLEMqS1vjhhfe2bymoqkHz AwMDAwMDt0 JIt8GNMvcOkoRoMeEUE3Of N0WTK3qSCkaL4ogRwyhtvt cM2nOnw+F0V8qAX7qNGlxB wvdGQ+PC90 jt42B0QkRvyxZbf3IRBoXC U4fTS7dG2wWBJsTZfda1R1 dBT4Y6QrudUnrk8sv2cfNL LnELmxA30p hJUhp9Z6TRSodPH1CEDzuE kvZbKdiH58Nlj+PGNvbGdy z2QbAxsbp1xcb6jbaKd1Id MwJSIgdmFs oPtxNIH4y9YxEo94D87uHM dpZHRoPSIzMCUiIHZhbGln ed0twT5aMn0+DZFogUY2lD K9wY5qXhMa QmX1BVxuT160EyMhiMDhTj lak7ach5rwdNe8KgGzHTNd wnHcpUsaQBE6z0TfLf62Z1 CzdFpfc0Dp Dzw0al26yXZfv7K4kEN9L9 PaJOLkcohebHKcqDmkAR9j HLVgogzmPPXaaE7tTIAqC2 n5RzZdUxC9 LFrwM7BnysS9UHYqfXUxXJ IlzDRCwT0nqupqv7pfhpls KbAhKURdSVt9FYx3MOBgiE duOiBsZWZ0 PaL7EID1hMRmwL0guKsbfm eckZ0xJpj+XDe4n0nylMNc DF0feLD2OC74GE11tCDfr2 U5eEQ4B0Mk XILtqmggeqhgbDO4MMPmVU NguW55Bv9xgNwfTm3rODJy NKA2RPFfmBLrK1QtbE4oOo AjMDAwMDAw Y4PqcPDiYEakA359THrlPb T3LDUxaeMyL4WqXQRqyMwx IgR5r1O8Sd0GSL41FA71SV 21oHDyy0J7 yPV9V5AmEAAxlwnrphvomL R7DGXpHJGpbT02Rn3gyFkj Aw0aZDRgXPO1RFAzpVTgF1 KmuA6vLaPa PMIhLSIkG6LhpZKyONueP3 68CSqiCpF9PYYtffBeE7Gm FVDkuTkiCfL2v2V1Ph8LUl 41KN43MZ67 aZYwt3E2mUV2F2FuRKRczf wvxwngwWU6MSVdRWZhwX78 Bs8qbFyiFf5gYJJtANR5FR OswTHlG1Qw tZ5sMtHxRQOpFDKgS4GfmT YxUIcbT908MKsxPkD0FMCt rnEdI5JmEBNmqGexIpV2g9 L1Cc6JRVrj pid1W4JxSlntiAD+PC90YW NjLB03tREvcVYna2ctuVz0 MwClIEMyIGV5tPttGBmiw7 BaPDDaF97v iXYzs0Z8 (more content not included)... Normal [facility] Consent for Procedure/Surger yon 09-29-2022 Consent for Procedure/Surgery [id number]#1.00 CD:127 [facility] Consent for Treatmenton 09-19 Consent for Treatment [id number]#1.0 0CD:127 [facility] IntraOperative Documentson 0 09-29-2022 IntraOperative Documents [id number]#[id number] CD:127 [facility] Main OR Intraoperative Recor don 09-29-2022 Main OR Intraoperative Record IntraOp Document Type FTURO Summary Primary Physician: Lionel CARRINGTON MD Finalized Date/Time: 09/29/22 10:53:58 Pt. Name: MARY DIAZ/Sex: 1950 Male Med Rec #: [id number] Physician: Lionel CARRINGTON MD Financial #: [id number] Pt. Type: O Room/Bed: / Admit/Disch: 09/29/22 10:00:50 - Institution: Case Times FTURO Entry 1 Patient Times In Room 09/29/22 10:48:00 Out Room 09/29/22 11:00:00 Procedure Times Start 09/29/22 10:50:00 Stop 09/29/22 10:55:00 Anesthesia Times Last Modified By: Edgard ZELAYA, Cheryl GALLARDO 09/29/22 10:53:40 Case Attendance FTURO Entry 1 Entry 2 Entry 3 Case Attendee DEVONTE NOBLE, Lionel Rene RN, CNOR, Safia GROSS, Nanci Luna Role Performed Surgeon - Primary Incident Handler - Primary Scrub - Primary Time In 09/29/22 10:48:00 09/29/22 10:48:00 09/29/22 10:48:00 Time Out 09/29/22 11:00:00 09/29/22 11:00:00 09/29/22 11:00:00 Procedure CYSTOSCOPY LOCAL(.) CYSTOSCOPY LOCAL(.) CYSTOSCOPY LOCAL(.) Comments Last Modified By: Edgard RN, CNOR, Edgard RN, CNOR, Edgard ZELAYA, CNOR, Cheryl 09/29/22 Cheryl 09/29/22 Cheryl 09/29/22 10:53:43 10:53:43 10:53:43 Surgical Procedures FTURO Entry 1 Procedure Description Procedure CYSTOSCOPY LOCAL Modifiers . Surgeon Description CYSTOSCOPY Primary Procedure Yes Primary Surgeon DEVONTE NOBLE, Lionel Burgos Start 09/29/22 10:50:00 Stop 09/29/22 10:55:00 Anesthesia Type Local Surgical Service Urology Wound Class 2 - Clean-Contaminated Last Modified By: Edgard ZELAYA, EDITHOR, Cheryl 09/29/22 10:53:45 General Case Data FTURO Pre-Care Text: Classifies surgical wound, implements aseptic technique, initiates traffic control Entry 1 Case Information OR URO 1 FT Case Level None Wound Class 2 - Clean-Contaminated Specialty Urology Preop Diagnosis HX OF BLADDER AND Postop Same As Preop No PROSTATE CANCER Postop Diagnosis HX OF BLADDER AND Outcomes Met? Yes PROSTATE CANCER, clear bladder Last Modified By: Edgard ZELAYA, EDITHOR, Cheryl 09/29/22 10:53:27 Post-Care Text: The patient is free from signs and symptoms of infection EU IntraOp - FTURO Pre-Care Text: Implements protective measures prior to operative or invasive procedure, confirms identity before the operative or invasive procedure, verifies operative procedure, surgical site, and laterality Entry 1 EU Perioperative Protocols Procedure(s) CYSTOSCOPY LOCAL(.) Patient Identity Birthday, ID Band Verified (select at Check, Patient least 2): Participation Consents / H and P HandP, Surgery/Procedure Operative Site N/A Verified Consent Marking Verified Surgical Site Yes Laterality Verified n/a Verified Procedure Verified Yes Correct Patient Yes Position Verified Availability Equipment, Medication Time Out Lionel CARRINGTON MD, Verified (If Participants PAULINA Rene RN, Applicable) Safia Luna CST, Kimberly A Time Out Complete 09/29/22 10:49:00 Allergies Reviewed? Yes Allergies Reviewed Self/Patient With Body Position Supine Prep Area penis Prep Agents Betadine Solution Skin. Condition Unable to Visualize Additional None Specimens Collected Vitals - EU Blood Pressure 142/82 Pulse 53 bpm Respirations SPO2 EBL 0 IandO - EU Total Intake 0 mL Total Output 0 mL Outcomes Met? Yes Last Modified By: PAULINA Rene RN, Ruthann 09/29/22 10:53:05 Post-Care Text: The patient is free from signs and symptoms of injury caused by extraneous objects Sign Out FTURO Entry 1 Before Patient Leaves OR Nurse verbally Yes Nurse verbally n/a confirms with the confirms with the team the name of team that the procedure(s) instrument, sponge, recorded and needle counts are correct (or N/A) Nurse verbally n/a Nurse verbally n/a confirms with the confirms with the team how the team whether there specimen is labeled are any equipment (including patient problems to be name), if applicable addressed Sign Out Complete 09/29/22 10:57:00 Last Modified By: PAULINA Rene RN, Ruthann 09/29/22 10:53:56 Case Comments Finalized By: PAULINA Rene RN, Ruthann Document Signatures Signed By: PAULINA Rene RN, Ruthann 09/29/22 10:53 Normal [facility] Main OR Preoperative Recordo n 09-29-2022 Main OR Preoperative Record Holding Area Document Type FTURO Summary Primary Physician: Lionel CARRINGTON MD Finalized Date/Time: 09/29/22 10:52:30 Pt. Name: MARY DIAZ/Sex: 1950 Male Med Rec #: [id number] Physician: Lionel CARRINGTON MD Financial #: [id number] Pt. Type: O Room/Bed: / Admit/Disch: 09/29/22 10:00:50 - Institution: Case Times Holding FTURO Pre-Care Text: Verifies consent for planned procedure, identifies individual values and wishes concerning care, includes family members in perioperative teaching Secures patient's records' belongings, and valuables, maintains patient's dignity and privacy, and maintains patient confidentiality Entry 1 In Holding 09/29/22 10:24:00 Outcomes Met? Yes Last Modified By: Iram Thomas LPN 09/29/22 10:24:45 Post-Care Text: The patient participates in decisions affecting his or her perioperative plan of care The patient's right to privacy is maintained Surgery Checklist FTURO Entry 1 Patient Birthday, Patient Procedure History and Physical, Identification: Participation Verification: Surgical Consent, With Patient NPO after Midnight: No Date/Time: 09/29/22 10:24:00 Personal Items: Dentures, Glasses, Personal Items clothes Jewelry Comment: Limitations: na Complaints of Pain: No Pain Comment: na Skin Integrity Intact, [place], Warm, & Dry Vitals - EU Blood Pressure 148/82 Pulse 53 bpm Respirations 16 br/min SPO2 96 % RN Reviewed Yes Last Modified By: PAULINA Rene RN, Ruthann 09/29/22 10:52:28 General Comments: temp:36.5 Finalized By: PAULINA Rene RN, Ruthann Document Signatures Signed By: Iram Thomas LPN 09/29/22 10:28 PAULINA Rene RN, Ruthann 09/29/22 10:52 Normal [facility] Operative Reporton Operative Report Patient: MARY DIAZ Age: 72 years Sex: Male : 1950 Associated Diagnoses: None Author: Lionel CARRINGTON MD Procedure Operative Information Details: Date/ Time: 09/29/2022 10:56:00. 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 Post-Op Dx: Same. Anesthesia Type: Local. Procedure: Local Cystoscopy. Complications: None. Risks/Benefits/Informe d Consent: Surgical risks, benefits, details of the procedure have been explained to the patient, Full informed consent has been obtained. Intraoperative Information Prepped: Patient is brought back to the endoscopy suite, Patient is placed in supine position, Patient prepped in the usual fashion with Betadine solution, 2% Xylocaine Jelly is placed per Urethra, After waiting several minutes the Cystoscope is introduced. The Urethra is: Normal. The Prostatic Urethra is: Absent prostate. The Bladder is: Trabeculated No bladder tumors noted. Prior resection sites with necrotic attachments that have not sloughed as of yet.. The ureteral orifices: Show efflux of clear urine. Devices Implanted: None. Removal: Cystoscope is removed, The patient tolerated it well. Postoperative Information Discharge: Patient is discharged home with antibiotic coverage, Follow up arranged. Normal [facility] Comment on above: Result Comment: Elec tronically Signed By: DEVONTE NOBLE, Lionel Gama.tacos\Date and Time Signed: 09/29/22 10:57 EDT Urine Cytology ([facility])on 0 09-28-2022 Urine Cytology Diagnosis Info Invalid Interpretation Code [facility] Comment on above: Result Comment: A:Ur ine,Urine:Voided Interpretation - MicroScopic Description - Adequacy - Gross Description Site ID:A color Yellow fixative Alcohol Specimen designated Urine received in alcohol preservative and labeled with the patient?s name, consists of 40ml clear yellow fluid. Electronically signed by : on: 09/28/2022 09:14:07 Performed By: #### 1 [id number] ####[facility] [address] [place] [address] US SINGLE QUAD RT UPPERon US SINGLE QUAD RT UPPER EXAM: US SINGLE QUAD RT UPPER HISTORY: . Gastroesophageal reflux disease without esophagitis . COMPARISON: None. TECHNIQUE: Grayscale and color imaging was performed FINDINGS: The pancreas is unremarkable. Liver is prominent in size measuring 19 cm. There are cysts within the liver. Within the right lobe of the liver there is a 5 x 4 mm cyst, a 6 x 3 mm cyst, and a 1.4 x 1.1 cm cyst. Color-flow is noted in the portal and hepatic veins. Common bile duct is normal measuring 4.7 mm. The gallbladder appears normal with no stones or sludge identified. Right kidney measures 9.3 x 5 x 5.9 cm. No solid renal cortical masses or hydronephrosis is noted. No fluid is noted in the right upper quadrant. IMPRESSION: 1. Hepatic cysts. Liver is prominent in size measuring 19 cm. 2. The remainder of the right upper quadrant was unremarkable. Electronically authenticated by: SOCORRO HUFFMAN Date: 2022-09-24 09:46 Normal [facility] AMYLASEon 09-21-2022 Amylase [Catalytic activity/Vol] 78 U/L Normal 25-115 [facility] Comment on above: Performed By: #### C VDTBH #### [facility] [address] [place] [address] Dr. Johnna Dixon CBC AUTO DIFFon 09-21-2022 BASO # 0.0 103/ul Normal 0.0-0.1 [facility] Comment on above: Performed By: #### C VDTBH #### [facility] [address] [place] [address] Dr. Johnna Dixon Basophils/100 WBC (Bld) 0.5 % Normal 0.2-2.0 [facility] Comment on above: Performed By: #### C VDTBH #### [facility] [address] [place] [address] Dr. Johnna Dixon EO # 0.1 103/ul Normal 0.0-0.7 [facility] Comment on above: Performed By: #### C VDTBH #### [facility] [address] [place] [address] Dr. Johnna Dixon Eosinophils/100 WBC (Bld) 1.9 % Normal 0.9-7.0 [facility] Comment on above: Performed By: #### C VDTBH #### [facility] [address] [place] [address] Dr. Johnna Dixon Erythrocyte distribution width (RBC) [Ratio] 14.5 % Normal 11.0-15.0 [facility] Comment on above: Performed By: #### C VDTBH #### [facility] [address] [place] [address] Dr. Jonhna Dixon Hematocrit (Bld) [Volume fraction] 39.1 % Critically low 42.0-54.0 [facility] Comment on above: Performed By: #### C VDTBH #### [facility] [address] [place] [address] Dr. Johnna Dixon Hemoglobin (Bld) [Mass/Vol] 12.8 g/dL Critically low 14.0-18.0 [facility] Comment on above: Performed By: #### C VDTBH #### [facility] [address] [place] [address] Dr. Johnna Dixon IG # 0.05 10e3/ul Critically high 0.00-0.03 [facility] Comment on above: Performed By: #### C VDTBH #### [facility] [address] [place] [address] Dr. Johnna Dixon IG % 0.7 % Critically high 0.0-0.5 [facility] Comment on above: Performed By: #### C VDTBH #### [facility] [address] [place] [address] Dr. Johnna Dixon LYMPH # 2.0 103/ul Normal 1.2-3.8 [facility] Comment on above: Performed By: #### C VDTBH #### [facility] [address] [place] [address] Dr. Johnna Dixon Lymphocytes/100 WBC (Bld) 27.4 % Normal 20.5-60.0 [facility] Comment on above: Performed By: #### C VDTBH #### [facility] [address] [place] [address] Dr. Johnna Dixon MANUAL DIFF REQ NO Normal [facility] Comment on above: Performed By: #### C VDTBH #### [facility] [address] [place] [address] Dr. Johnna Dixon MCH (RBC) [Entitic mass] 31.3 pg Normal 25.9-34.0 [facility] Comment on above: Performed By: #### C VDTBH #### [facility] [address] [place] [address] Dr. Johnna Dixon MCHC (RBC) [Mass/Vol] 32.7 g/dL Normal 29.9-35.2 [facility] Comment on above: Performed By: #### C VDTBH #### [facility] [address] [address] [address] Johnna Dixon MCV (RBC) [Entitic vol] 95.6 fL Critically high 80.0-94.0 [facility] Comment on above: Performed By: #### C VDTBH #### [facility] [address] [place] [address] Dr. Johnna Dixon MONO # 0.5 103/ul Normal 0.3-0.8 [facility] Comment on above: Performed By: #### C VDTBH #### [facility] [address] [place] [address] Dr. Johnna Dixon Monocytes/100 WBC (Bld) 6.9 % Normal 1.7-12.0 [facility] Comment on above: Performed By: #### C VDTBH #### [facility] [address] [place] [address] Dr. Johnna Dixon NEUT # 4.7 103/ul Normal 1.4-6.5 [facility] Comment on above: Performed By: #### C VDTBH #### [facility] [address] [place] [address] Dr. Johnna Dixon Neutrophils/100 WBC (Bld) 62.6 % Normal 43.0-75.0 [facility] Comment on above: Performed By: #### C VDTBH #### [facility] [address] [place] [address] Dr. Johnna Dixon Platelet mean volume (Bld) [Entitic vol] 9.3 fL Critically low 9.5-13.5 [facility] Comment on above: Performed By: #### C VDTBH #### [facility] [address] [place] [address] Dr. Johnna Dixon PLT 235 103/ul Normal 150-450 [facility] Comment on above: Performed By: #### C VDTBH #### [facility] [address] [place] [address] Dr. Johnna Dixon RBC 4.09 106/ul Critically low 4.70-6.10 [facility] Comment on above: Performed By: #### C VDTBH #### [facility] [address] [place] [address] Dr. Johnna Dixon WBC 7.4 103/ul Normal 4.0-11.0 [facility] Comment on above: Performed By: #### C VDTBH #### [facility] [address] [place] [address] Dr. Johnna Dixon LIPASEon 09-21-2022 Lipase [Catalytic activity/Vol] 114.0 U/L Normal 73.0-393.0 [facility] Comment on above: Performed By: #### C VDAGS #### [facility] [address] [place] [address] Dr. Johnna Dixon LIVER PROFILEon 09-21-2022 Albumin [Mass/Vol] 3.9 g/dL Normal 3.4-5.0 [facility] Comment on above: Performed By: #### C VDTBH #### [facility] [address] [place] [address] Dr. Johnna Dixon Albumin/Globulin [Mass ratio] 1.6 {ratio} Normal [facility] Comment on above: Performed By: #### C VDTBH #### [facility] [address] [place] [address] Dr. Johnna Dixon ALP [Catalytic activity/Vol] 59 U/L Normal 46-116 [facility] Comment on above: Performed By: #### C VDTBH #### [facility] [address] [place] [address] Dr. Johnna Dixon ALT [Catalytic activity/Vol] 23 U/L Normal 16-63 [facility] Comment on above: Performed By: #### C VDTBH #### [facility] [address] [place] [address] Dr. Johnna Dixon AST [Catalytic activity/Vol] 8 U/L Critically low 15-37 [facility] Comment on above: Performed By: #### C VDTBH #### [facility] [address] [place] [address] Dr. Johnna Dixon BILI, CONJUGATED 0.1 mg/dL Normal 0.0-0.2 [facility] Comment on above: Performed By: #### C VDTBH #### [facility] [address] [address] [address] Johnna Dixon Bilirubin [Mass/Vol] 0.3 mg/dL Normal 0.2-1.0 [facility] Comment on above: Performed By: #### C VDTBH #### [facility] [address] [place] [address] Dr. Johnna Dixon Globulin (S) [Mass/Vol] 2.5 g/dL Normal [facility] Comment on above: Performed By: #### C VDTBH #### [facility] [address] [place] [address] Dr. Johnna Dixon Protein [Mass/Vol] 6.4 g/dL Normal 6.4-8.2 [facility] Comment on above: Performed By: #### C VDTBH #### [facility] [address] [place] [address] Dr. Johnna Dixon PROF CHEM 8 (BAS METB)on Anion gap [Moles/Vol] 13.4 mmol/L Normal [facility] Comment on above: Performed By: #### C VDTBH #### [facility] [address] [place] [address] Dr. Johnna Dixon Calcium [Mass/Vol] 8.9 mg/dL Normal 8.5-10.1 [facility] Comment on above: Performed By: #### C VDTBH #### [facility] [address] [place] [address] Dr. Johnna Dixon Chloride [Moles/Vol] 106 mmol/L Normal 98-107 [facility] Comment on above: Performed By: #### C VDTBH #### [facility] [address] [place] [address] Dr. Johnna Dixon CO2 [Moles/Vol] 25.6 mmol/L Normal 21.0-32.0 [facility] Comment on above: Performed By: #### C VDTBH #### [facility] [address] [place] [address] Dr. Johnna Dixon Creatinine [Mass/Vol] 1.21 mg/dL Normal 0.70-1.30 [facility] Comment on above: Performed By: #### C VDTBH #### [facility] [address] [address] [address] Johnna Dixon EGFR-AF TUVALUAN >60 Normal >=60 [facility] Comment on above: Performed By: #### C VDTBH #### [facility] [address] [address] [address] Johnna Dixon EGFR-NON AF TUVALUAN 59 mL/min/1.73m2 Critically low >=60 [facility] Comment on above: Performed By: #### C VDTBH #### [facility] [address] [address] [address] Johnna Dixon Glucose [Mass/Vol] 115 mg/dL Critically high 74-106 [facility] Comment on above: Performed By: #### C VDTBH #### [facility] [address] [address] [address] Johnna Dixon Potassium [Moles/Vol] 4.0 mmol/L Normal 3.5-5.1 [facility] Comment on above: Performed By: #### C VDTBH #### [facility] [address] [address] [address] Johnna Dixon Sodium [Moles/Vol] 141 mmol/L Normal 136-145 [facility] Comment on above: Performed By: #### C VDTBH #### [facility] [address] [address] [address] Johnna Dixon Urea nitrogen [Mass/Vol] 19.0 mg/dL Critically high 7.0-18.0 [facility] Comment on above: Performed By: #### C VDTBH #### [facility] [address] [address] [address] Johnna Dixon Urea nitrogen/Creatinine [Mass ratio] 15.7 mg/mg Normal [facility] Comment on above: Performed By: #### C VDTBH #### [facility] [address] [address] [address] Johnna Dixon Patient Educationon 09-22-19 23 Patient Education Oncology Cancer Screening for Men A cancer screening is a test or exam that checks for cancer. Your health care provider will recommend specific cancer screenings based on your age, personal history, and family history of cancer. Work with your health care provider to create a cancer screening schedule that protects your health. Why is cancer screening done? Cancer screening is done to look for cancer in the very early stages, before it spreads and becomes harder to treat and before you would start to notice symptoms. Finding cancer early improves the chances of successful treatment. It may save your life. Who should be screened for cancer? All men should be screened for colorectal cancer and skin cancer. Your health care provider may recommend screenings for other types of cancer if: ? You had cancer before. ? You have a family member with cancer. ? You have abnormal genes that could increase the risk of cancer. ? You have risk factors for certain cancers, such as smoking. When you should be screened for cancer depends on: ? Your age. ? Your medical history and your family's medical history. ? Certain lifestyle factors, such as smoking. ? Environmental exposure, such as to asbestos. What are some common cancer screenings? Lung cancer Lung cancer screening is done with a CT scan that looks for abnormal cells in the lungs. Discuss lung cancer screening with your health care provider if you are 55?74 years old and if any of the following apply to you: ? You currently smoke. ? You used to smoke heavily. ? You have a smoking history of 1 pack a day for 30 years or 2 packs a day for 15 years. ? You have quit smoking within the past 15 years. If you smoke heavily or if you used to smoke, you may need to be screened every year. Prostate cancer Prostate cancer screening is done with blood tests and an exam in which a health care provider uses a gloved finger to check prostate size (digital rectal exam). You may need to be screened for prostate cancer if: ? You have risk factors of prostate cancer, such as being or having a close family member with prostate cancer. ? You have inherited gene changes or a genetic condition, including BRCA1 or BRCA2 gene mutations or Ivey syndrome. ? You have symptoms of prostate cancer, such as problems urinating or erectile dysfunction. Prostate cancer screening for men with average risk may start at age 50. Men with risk factors may need to be screened earlier at age 40?45. Once you have been screened for prostate cancer, future screening may be recommended based on the results of your blood tests. Colorectal cancer All adults should have screening for colorectal cancer starting at age 50 and continuing until age 75. Your health care provider may recommend screening at age 45. You will have tests every 1?10 years, depending on your results and the type of screening test. If you have a family history of colon or rectal cancer or other risk factors, you may need to start having screenings earlier. Talk with your health care provider about which screening test is right for you and how often you should be screened. Colorectal cancer screening looks for cancer or for growths called polyps that often form before cancer starts. Tests to look for cancer or polyps include: ? Colonoscopy or flexible sigmoidoscopy. For these procedures, a flexible tube with a small camera is inserted into the rectum. ? CT colonography. This test uses X-rays and a contrast dye to check the colon for polyps. If a polyp is found, you may need to have a colonoscopy so the polyp can be located and removed. Tests to look for cancer in the stool (feces) include: ? Guaiac-based fecal occult blood test (FOBT). This test detects blood in stool. It can be done at home with a kit. ? Fecal immunochemical test (FIT). This test detects blood in stool. For this test, you will need to collect stool samples at home. ? Stool DNA test. This test looks for blood in stool and any changes in DNA that can lead to colon cancer. For this test, you will need to collect a stool sample at home and send it to a lab. Skin cancer Skin cancer screening is done by checking the skin for unusual moles or spots and any changes in existing moles. Your health care provider should check your skin for signs of skin cancer at every physical exam. You should check your skin every month and tell your health care provider right away if anything looks unusual. Men with a cjbfzz-xawy-rcxssh risk for skin cancer may want to see a electronic masking system operator (electroless plater) for an annual body check. Where to find more information ? National Cancer [place]: https://www.cancer.gov /about-cancer/screenin g ? Centers for Disease Control and Prevention: https://www.cdc.gov/ca ncer/dcpc/prevention/s creening.htm ? [place] [employer]: https://www.cancer.org /latest-news/4-cancer- rkhuhxuyj-tsxit-lrj-me n.html Contact a health care (more content not included)... Normal [facility] Urine Cytology ([facility])on 0 09-21-2022 UC Method of Extraction Voided Normal [facility] Comment on above: Performed By: #### 1 [id number] ####[facility] [address] [place] [address] Number of Jars 1 Invalid Interpretation Code [facility] Comment on above: Performed By: #### 1 [id number] ####[facility] [address] [place] [address] Specimen Urine Normal [facility] Comment on above: Performed By: #### 1 [id number] ####[facility] [address] [place] [address] Type of Service Technical Only Normal [facility] Comment on above: Performed By: #### 1 [id number] ####[facility] [address] [place] [address] Ambulatory Visit Summaryon 0 08-17-2022 Ambulatory Visit Summary EMILYMARY :1950 Visit Date:08/17/2022 Ambulatory Visit Instructions Your Care Team Attending Physician - DEVONTE NOBLE, Lionel Burgos Primary Care Physician - Yolande Staley MD This Is Your Medications List carvedilol (carvedilol 6.25 mg Tab) ciprofloxacin (Cipro 500 mg Tab) clonidine (cloNIDine 0.1 mg tab) irbesartan (irbesartan 300 mg Tab) omeprazole (omeprazole 40 mg Cap-EC) sildenafil (sildenafil 100 mg Tab) Procedures Performed TURBT - Transurethral resection of bladder tumor (02/17/2022), TURBT - Transurethral resection of bladder tumor (10/29/2021), Cystourethroscopy with dilation of urethral stricture (10/14/2021), Repair of umbilical hernia (06/22/2017), Arthroscopy of shoulder (05/20/2017), bilateral fifth partial metatarsal osteotomies and Silver Tailor's bunionectomies (08/29/2014), Radical perineal prostatectomy (08/15/2014), Complete repair of rotator cuff (2010), Shoulder reconstruction (1998), Appendectomy (1964), Arthroplasty of the ankle, Arthroscopy of knee, Cervical vertebral fusion. What to do next Scheduled Follow-Up Appointments Wednesday 9:45 AM EDT With: DEVONTE NOBLE, Lionel Burgos Where: [facility] Normal [facility] CREATININEon 08-04-2022 Creatinine [Mass/Vol] 1.31 mg/dL Critically high 0.70-1.30 [facility] Comment on above: Performed By: #### C JANIS #### [facility] [address] [address] [address] Johnna Dixon EGFR-AF TUVALUAN >60 Normal >=60 [facility] Comment on above: Performed By: #### C JANIS #### [facility] [address] [address] [address] Johnna Dixon EGFR-NON AF TUVALUAN 54 mL/min/1.73m2 Critically low >=60 [facility] Comment on above: Performed By: #### C JANIS #### [facility] [address] [address] [address] Johnna Dixon CTA NECK WO W CONon 08-04-19 23 CTA NECK WO W CON EXAMINATION: CTA NEC K WO W CON HISTORY: Carotid artery stenosis COMPARISON: Ultrasound carotid artery bilateral 07/28/2022 TECHNIQUE: Multiplanar CT imaging without and with IV contrast. Multi-planar/3-D imaging to optimize visualization of vascular anatomy. Percent stenosis is based on NASCET criteria. Dose reduction techniques were achieved by using automated exposure control and/or adjustment of mA and/or kV according to patient size and/or use of iterative reconstruction technique. FINDINGS: RIGHT INTERNAL CAROTID: Moderate plaque within proximal ICA. EXTERNAL CAROTID: No hemodynamically significant stenosis or dissection. COMMON CAROTID: Mild plaque. VERTEBRAL: No hemodynamically significant stenosis or dissection. LEFT INTERNAL CAROTID: Mild-moderate plaque within proximal ICA. EXTERNAL CAROTID: No hemodynamically significant stenosis or dissection. COMMON CAROTID: Mild plaque. VERTEBRAL: Complete occlusion throughout its length. OTHER: Moderate-marked emphysematous changes within the lungs. IMPRESSION: 1. 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 2. Moderate atherosclerotic disease within proximal ICA bilaterally without significant stenosis. Electronically authenticated by: ALLI CORTES Date: 2022-08-04 14:04 Normal [facility] US CAROTID ART BILon 023 US CAROTID ART SREEKANTH EXAMINATION: US CAROTID ART SREEKANTH HISTORY: Essential hypertension , visual disturbances COMPARISON: No relevant comparison available. TECHNIQUE: Duplex Doppler ultrasound analysis of carotid and vertebral arteries. . Bilateral carotid arterial duplex examination was performed using B-mode, color flow and spectral analysis. Carotid stenosis is reported according to validated velocity parameters, similar to NASCET criteria. FINDINGS: RIGHT CAROTID ARTERY: Moderate plaque throughout, greatest within distal CCA were there is 63% area reduction. RIGHT VERTEBRAL: Antegrade flow. Subclavian: PSV: 122.0 cm/s EDV: 0.0 cm/s CCA: Prox: PSV: 62.9 cm/s EDV: 13.6 cm/s Mid: PSV: 127.9 cm/s EDV: 23.5 cm/s Distal: PSV: 92.4 cm/s EDV: 19.5 cm/s BULB: PSV: 80.6 cm/s EDV: 15.6 cm/s ICA: Prox: PSV: 66.8 cm/s EDV: 17.5 cm/s Mid: PSV: 100.3 cm/s EDV: 25.4 cm/s Distal: PSV: 110.1 cm/s EDV: 33.3 cm/s ECA: PSV: 96.3 cm/s EDV: 9.7 cm/s VERTEBRAL: PSV: 45.2 cm/s EDV: 12.8 cm/s ICA/CCA ratio: PSV: 0.9 EDV: 1.4 LEFT CAROTID ARTERY: Moderate plaque throughout. No flow within left vertebral artery. LEFT VERTEBRAL: Antegrade flow. Subclavian: PSV: 174.0 cm/s EDV: 0.0 cm/s CCA: Prox: PSV: 85.7 cm/s EDV: 18.3 cm/s Mid: PSV: 122.8 cm/s EDV: 25.3 cm/s Distal: PSV: 99.6 cm/s EDV: 23.0 cm/s BULB: PSV: 88.0 cm/s EDV: 16.0 cm/s ICA: Prox: PSV: 90.3 cm/s EDV: 23.0 cm/s Mid: PSV: 94.9 cm/s EDV: 20.6 cm/s Distal: PSV: 101.8 cm/s EDV: 36.9 cm/s ECA: PSV: 87.9 cm/s EDV: 11.4 cm/s VERTEBRAL: PSV: EDV: ICA/CCA ratio: PSV: 0.8 EDV: 1.5 IMPRESSION: 1. 0-49% flow stenosis within the right and left carotid arteries. 2. Moderate atherosclerotic narrowing bilaterally, greatest within right distal CCA were there is 63% area reduction. 3. Complete occlusion of left vertebral artery. Spectral Doppler US Thresholds Stenosis (%) PSV (cm/sec) VICA/VCCA 0-49 <150 <2.5 50-69 150-225 2.5-4.0 >70 >225 >4.0 Electronically authenticated by: ALLI CORTES Date: 2022-07-28 12:00 Normal [facility] Ambulatory Visit Summaryon 0 07-20-2022 Ambulatory Visit Summary MARY DIAZ :1950 Visit Date:07/20/2022 Ambulatory Visit Instructions Your Diagnosis History of bladder cancer Tests Performed Urnls Dip Stick Auto w/o Microscopy POC 49220 Your Care Team Attending Physician - Lionel CARRINGTON MD Primary Care Physician - Yolande Staley MD This Is Your Medications List carvedilol (carvedilol 6.25 mg Tab) ciprofloxacin (Cipro 500 mg Tab) clonidine (cloNIDine 0.1 mg tab) irbesartan (irbesartan 300 mg Tab) omeprazole (omeprazole 40 mg Cap-EC) sildenafil (sildenafil 100 mg Tab) Procedures Performed TURBT - Transurethral resection of bladder tumor (02/17/2022), TURBT - Transurethral resection of bladder tumor (10/29/2021), Cystourethroscopy with dilation of urethral stricture (10/14/2021), Repair of umbilical hernia (06/22/2017), Arthroscopy of shoulder (05/20/2017), bilateral fifth partial metatarsal osteotomies and Silver Tailor's bunionectomies (08/29/2014), Radical perineal prostatectomy (08/15/2014), Complete repair of rotator cuff (2010), Shoulder reconstruction (1998), Appendectomy (1964), Arthroplasty of the ankle, Arthroscopy of knee, Cervical vertebral fusion. What to do next Scheduled Follow-Up Appointments Wednesday 10:00 AM EST With: Where: [facility] Normal [address] [place] [address] [place] [address]- \.br\ Medications\.br \ What How Much When Instructions\.b r\ Unchanged carvedilol (carvedilol 6.25 mg Tab) 2 Tablets By Mouth 2 times a day\.br\ Unchanged ciprofloxacin (Cipro 500 mg Tab) 1 Tablets By Mouth Every day Take 1 tablet the day before the procedure and 1 tablet after the procedure \.br\ Unchanged clonidine (cloNIDine 0.1 mg tab)\.br\ Unchanged irbesartan (irbesartan 300 mg Tab) 1 Tablets By Mouth Every day\.br\ Unchanged omeprazole (omeprazole 40 mg Cap-EC) 1 Capsules By Mouth Every day\.br\ Unchanged sildenafil (sildenafil 100 mg Tab) 1 Tablets By Mouth Every day Take 1 tablet 1 hr prior to sexual activity as needed. Don't exceed 1 tab (100 mg) in a 24 hr period. \.br\ Test Results\.br\ Urnls Dip Stick Auto w/o Microscopy POC 28973 (07/20/2022)\.b r\ POC Test Comments - UA prior to Mitomycin tx\.br\ Bilirubin Urine Dipstick - Negative\.br\ Blood Urine Dipstick - Negative\.br\ Glucose Urine Dipstick - Negative\.br\ Ketones Urine Dipstick - Negative\.br\ Leukocytes Urine Dipstick - Negative\.br\ Nitrite Urine Dipstick - Negative\.br\ Protein Urine Dipstick - Negative\.br\ Specific [place] Urine Dipstick - 1.020\.br\ Urine Appearance Urine Dipstick - Clear\.br\ Urine Color Urine Dipstick - Yellow\.br\ Urobilinogen Urine Dipstick - Normal 0.2-1 EU/dl\.br\ pH Urine Dipstick - 5\.br\ Allergies\.br\ Percocet 5/325\.br\ codeine (hives/rashes)\ .br\ Problems\.br\ Ongoing - Any problem that you are currently receiving treatment for.\.br\ Acute gouty arthritis\.br\ Bladder cancer\.br\ History of kidney stones\.br\ History of prostate cancer\.br\ HTN (hypertension)\ .br\ Impotence\.br\ Historical - Any problem that you are no longer receiving treatment for.\.br\ Acid reflux\.br\ Cancer of prostate\.br\ \.br\ [facility] Consent for Procedure/Surger yon 07-15-2022 Consent for Procedure/Surgery [id number]#[id number] 0CD:127 Normal [facility] Consent for Procedure/Surgery [id number]#[id number] 0CD:127 Normal [facility] UroVysion FISH ([facility])on 0 07-15-2022 UroVysion FISH Diagnosis Info Invalid Interpretation Code [facility] Comment on above: Result Comment: A:Ur ine,Urine:Bladder Wash Diagnosis Summary - The UroVysion FISH study detected normal copy numbers for chromosomes 3, 7, 17, and 9p21. 111 cells were analyzed in this evaluation. No evidence of aneuploidy for chromosomes 3, 7, or 17 or deletion of the 9p21 locus was found in cells present in this specimen. This test does not rule out the possibility of a low grade non-invasive papillary urothelial carcinoma. These findings should be correlated with cytology and cystoscopy results.* Microscopic Notes - Abnormal cells 9p21 deletions: Abnormal cells aneploid events: Total cells analyzed: 111 Hematuria: Gross Description Site ID:A color Light Yellow fixative Alcohol The specimen is received in alcohol and labeled with the patient's name and consists of 90ml of clear, light yellow fluid. Electronically signed by : on: 07/15/2022 15:42:11 Performed By: #### 1 [id number] #### [facility] [address] [place] [address] Coding Summary.on 07-08-2022 Coding Summary. CD:[id number] Gh 0bWw+PGhlYWQ+ZL9LOREjR 03zlHAepE5FS6gJSS2IOXM JYELZBU5LLE4tuPV9AFvhQ 2VybiAv VhmfiBHnXO99NCb6GEM8vW pzMRkejZ1gnBGuL8z0QsWq ML42aB76TIuiAUMdBjL4Cl ZpbjsgbWFy C5feRqFlgCNiAnr+PHRhYm xlIHdpZHRoPScxMDAlJyBz cHgsHR1pBr4fJRUlUEPmmX xhcHNlOiBj a0bvALSrHQubPV5guZggT4 RseTU1HPTrp8k6Sf57lMK+ JVBsJKK9oAgaVJcdr245Km Iwx2zkJZI5 xPYxXZlgCXC4P29uj7B0FB UxWDAnRZR4kQT3jP5biShh khvoR4HtvDIrVuM5DKP5eP OqeP5rzBcq qscjeU8zPie+U22FYX3VFP CZXP9ZSqq0I5ZrUobxlSA+ EU76RLMqCH87rZPewPNub6 lwaZv5BaBs DXJkRDP3bTszQJdgx0LdBM XfD06wxOLth6C2ACVkdYve vLAySwDauXI3nP9mYYjszy dyy9bfbfgq Qlfmn6kncw98cZ51A21jSR vuGVXtUUH4PFJqSUNvjSlx ul6hjD3sAn3+BMlxz5cbe5 tjcCs3BiAv JQTxyjTfpUuiJCO9t0QxFk 01B9DhyKdfq5QjRsj0iw96 dNLuf6M6uGV0NLvcOTHdiZ 1gMVyoQeI3 FCPuFkOycM57bHLySMqxOe 0skFdugTesHP0tTOUfqmow PPQehV0wZAKsqDCvwOysTY 4wNTBpbjtm j941KsOeOER4VJMucKPzF4 GxpB8qFhDoHTJkQBXhV8Go gMNjGGmmC025QLzzAwW3NB UqdjTfE5Ut RSBppHrySgK6l2G1Et9Dk6 ZafhmhLML2TXfyKHAhFkZ2 KhCiLpB8N4JiIii8DXMbaT stFD0pT3Ue HUMlpgfyymekcKE3KJXsLF JuaQ69yXZfTIwnMq3pf6H1 v647YJMsEUXhiV85Ys6rbS ogMTBwdCBU hO4zimpvz2xhwmeeNbLrHL IlOVr0BZe2QSZqnJcqFxYn SDU7FsH1ECP9yYHxvY2kxY mhamsysI0i Oyc+Y59ouT8sWHB8TJA4dw meWKPlfsKoMF80WA78C7Bk PjwvdGFibGU+PGRpdiBzdH woGV7gJtPu x9hlp4BaKKavS2GpTVOzSI arIcb1ROQwOVG7xCE4oE3u ELWfXKnws7M7dBW2L0Scba Ufje3yb1pw LKQhFSjiM68zqHXeg9Y0RD HpxHW7CFOaoNdyOxGdoE05 Oyc+SWLbcCfky9QgJxauc5 jcp4flyTw9 IiLvTUSewrEpbMqqMCT9t3 LoGi56R07sRTzhATBsBFAx AFJuXQZtkEyixo1zoZ6sNo 8+PGNvbCB3 zOT3oT0aDVWhAaD5BRhkD7 81EnPzdVOzPlibu6zfk1jy pBw8RdIlVCMpmwPujIpmJF J1d5RxCj48 X47nHAiaTVYgVGUaPMCaHX HqqVarpm3fsU1fQz2+PC9j b8amqf38gM90jWS+PHRkIH S2wIcoEMvx ZMDokA0zPJzwYoI0UDRpQv DcmZ24uFElGCslNe2skNcj qFzaRY3nHZIrbneqd010Da Wlt0hnEEZt zURrTCaoTWY8W87js2B0CE JwFOAiIOK9dSE3aV3xpUri bjogbGVmdDsgdmVydGljYW poDLxoW194 IHRvcDsnPlBhdGllbnQgTm LnARk4W6MlSfv6ZFUjgCon LW0kwZTpNPrdCi6qqLqqpK puMD5qTONp zeldo838CeLmp6ozEJPtcJ CmXMycZKP2Y91uv6F7IMBm BHZgFGZ6sTE2yT6rbKveba ogbGVmdDsg urUiqBofIAjuXFtpS122OO RvcDsnPkJpcnRoIERhdGU6 ZS93LC36qNJsk9Q8kVZ4C5 BhZGRpbmct nnkiuLN4FAUuNZKftD47Ln 8haKdmEd7rAHBbVSP5HUHy uLXkZ8YjtJ3xJeCgZDAfTS XjT1GwtWIm OXokH825HGeyGvX2JKAjvz GjC6FhGZDmyZepGkL3t4U0 Co1EL1T2ZD41RX87uGYfm4 F9fWQ6E2Iu ONOmdckfmtzoiRW4KVRaBI VspH58Yr2rhZqkXd7rXSPb GHM2YOTziPAxV0HuvI5pGq AjMDAwMDAw H9ZbuDKmRNxaH629QDdqBg V4BGYwttNtX0OwRNOpwOyu XaH3g3E3Bc1BLAd6GM37TR 54qLRhe8W6 iUK2Q2RtCXZkcrnkcitldD J6CDZhOOVxpE14Zr7joLhi Pj1hSDGbTLD1PDApxCUhU7 FmlA1qHbNi FTBbSMCaQ2WnwAWqIPkkH0 27JKciCuU5YWXcadFlX6Nk YDRozXhhPdP4j4I1Nn1ESZ BaKE36GFQ3 hMS2ZH28NM47A0DoWosncP FibGU+PHRhYmxlIHdpZHRo CUuoLDUdIwItuMmuHZ4lMx 9yZGVyLWNv jXbjzPHxAdEex3nqQSRmCZ icYO1raCcwM0DkgZB5BTDs k7l7Bb46F28rV2CacPI+PG DfoHD6yYL7 wG8eJsRiSzK8LVfpJ622Ds GsnKQiJrwal7qfa0gchYd8 OuI6XVAoxoPbgHfwGMB9j9 BxMn48C43g IHdpZHRoPSIxNSUiIHZhbG vudz1xvY4yWn2+PGNvbCB3 oJC5cR0ePgMiGhP4LUroU1 49InRvcCIv Ulwff6frq1lchYe3QpRlHT ObqyUwvUsbPKR8s2CwAl41 P0VxtQtcl1FvWxw9ya23rV Cgw3C3iBV6 H8VwOTJrlmbqfWLysZdsVI 0yELArvekwLCZbxL0wGZTw Z6a1JcSxZyT6GOwgS3Pigk V9GWWkkPZj MWysWGX2J42qe4X0ZLSgVP FkMGM0qTJ7aP8zzPlhyhch bGVmdDsgdmVydGljYWwtYW msN350IGUw zVlaOVKdzV1wIZRcuNIluN itCN6yWSZstykfTccDIE0U FFYDLSFVWL5BOqYDLV44RJ 50dXLjh4B9 tLH9G0CzQFOhbnowqfcvcI K5QRQqQYWytG65vHFxFEdf Cg4rr5J4e974SRAyWJFikC 41Gv4ifZgr IAOgcTLQhP1tcvloe9ywzf hcQuJlTWWoLEl7TUh9VDBd hIsySjBtQGC7JzB2PRH2cH BhwT2oeAcs jftjnM5kFou+MDgvMTUvMT n6LXxmiIV+WKDbQCB3rMiv IZwlIXHouY2vMZSlE3k1Wm DjTpT0HYeh P2ZuJGSzoeesQa08tL8bPo LiLuU6QPajO8ZeobY2PDBj rKQbIIrbNWJ0W61xt9L0QN MwMDAwMDA7 vWT8oG0ugHrmltnpnTMspQ wksfTvtOmeIWdnBRtrW573 IHRvcDsnPjcxIFllYXJzPC 71UW67zNAv l3D6yNK6H6JyQWSlfyuqww gzpYJ7VOPlPOSiqB94iPGg BAldQl0vb4C3m828FJNwPE CobZ71Fm7c pAbeXXDdnCMOrW1pisqnd6 qudeszUtXeSPCpZNl6AWi9 FKZebRhbExKaDYX0GzK4AL N3jCXckZ2h lTnyfouxwZ8zAuz+TWFsZT wvdGQ+SJEqADE9jNqmHFpb LLJejJ0kDUTgZ2b6HkYfMy S8XKllR1Ye JYInauxxXo39uA0tNeHhSp G6MHxpT0DfslY0EYQgmKNg PXhtUPB1U60fc3R8QFQvOQ EhAYL0qEE6 zD5ooEnimacnhSPvbJrpys ZckXxnNRzdAHgeQ775JMLi kVgrNp16wAMlbGwldeJ7A8 RkPjwvdHI+ IT49CUEjOE69xJBfnBQui4 gtgOx8DsEyVDBrCXY3xQpu JJscz6RnZIAgF47szTFsj3 J7GUInwOay nXFiLgSjdJY0iO9hZDabwq nsi0pbnohsLwohw3zdmy58 zZ98Q30sFNwfPXUrUWFfKD UiIHZhbGln ly4tfW5vKh5+BVJweEV3tN F9rB1aJjLsBuP4IZwtE801 IvWggGPjIuksl1anr8oicE g7NbYgZHNz etKotBdkEXU1v5MjLc25N9 9sIHdpZHRoPSIyMCUiIHZh vSzbpy3slI5lOp4+PC9jb2 keaj76rT21 dHI+QXZyOQI2vQcyUQfyUU ZlzY8eYClnFiU4JERlCaKr aO45gTIsREteAt1xpMwibH sgAT3pSCNm cuqhs262TmAos7flCSIcmW PvEVjpSFM2A61fz1Q9SDTi EASqRTZ5kNA2qF5zjWrkxg ogbGVmdDsg ouMyaOlbUOxvBTwnR974RM JkuFboUnTbqDLvK2rjefVL FS6rKcjmfXJ+EHBoMNW5oA xlPSdwYWRk fF7lRHErQ5e6SePsYuK2TZ yoT1GdqdM1BTNlhTWaLUQl gMTIcX5fwuvda4yscizwLq AwMDAwMDt0 FNi7ZKKyjXbnZaPuOGQ0Dc C9TKZ2xBLliL6jvSkqgkgo cV2nZqp+RklOOjwvdGQ+PH OtUOS7rCge YJytRMCiyU2hJYHqJ5s6Zk FsVdO9HMhdL4SchuK5BUGx jJRnSHIuyKPAtL4iqlhzq7 xvcjogIzAw DMPlRBb7EPr9IUBwbHkwNw VlZZB8UjQ0MOK9nHDcmC1t qYnbjsaijC4lTkv+TVJOOj wvdGQ+PHRk XXW3nZhtZMszHLUpkS5sZX SeX7j5IaTeHnY4TKoxU8Pb swM3DTGvjALyQHLsdAAZrN 0jrrmwj6zo uyjbEoLoPXNmNZl4WJo6XR MibYfaSfClJAF5UyB1ZLM5 eKWmxD1awCfjhruwnI3nZd c+NYU8ABZ7 MI93QB43X4XuRfubsNZtrN U+PHRhYmxlIHdpZHRoPScx EIRlIoIhfKgiMV5tBh6gXS VyLWNvbGxh cHNl (more content not included)... Normal [facility] Consent for Procedure/Surger yon 07-08-2022 Consent for Procedure/Surgery [id number]#1. 00CD:127 Normal [facility] IntraOperative Documentson 0 07-08-2022 IntraOperative Documents [id number]#1. 00CD:127 [facility] Consent for Treatmenton 06-21 Consent for Treatment [id number] 0CD:127 [facility] Main OR Intraoperative Recor don 07-07-2022 Main OR Intraoperative Record IntraOp Document Type FTURO Summary Primary Physician: Lionel CARRINGTON MD Finalized Date/Time: 07/07/22 13:40:45 Pt. Name: MARY DIAZ/Sex: 1950 Male Med Rec #: [id number] Physician: Lionel CARRINGTON MD Financial #: [id number] Pt. Type: O Room/Bed: / Admit/Disch: 07/07/22 10:08:13 - Institution: Case Times FTURO Entry 1 Patient Times In Room 07/07/22 10:38:00 Out Room 07/07/22 10:52:00 Procedure Times Start 07/07/22 10:41:00 Stop 07/07/22 10:47:00 Anesthesia Times Last Modified By: Edgard ZELAYA, Cheryl GALLARDO 07/07/22 10:47:02 Case Attendance FTURO Entry 1 Entry 2 Entry 3 Case Attendee DEVONTE NOBLE, Lionel Rene RN, EDITHOR, Eulalia GROSS, Zora Luna Role Performed Surgeon - Primary Incident Handler - Primary Scrub - Primary Time In 07/07/22 10:38:00 07/07/22 10:38:00 07/07/22 10:38:00 Time Out 07/07/22 10:52:00 07/07/22 10:52:00 07/07/22 10:52:00 Procedure CYSTOSCOPY LOCAL(.) CYSTOSCOPY LOCAL(.) CYSTOSCOPY LOCAL(.) Comments Last Modified By: Edgard ZELAYA, EDITHOR, Edgard ZELAYA, EDITHOR, Edgard ZELAYA, EDITHOR, Cheryl 07/07/22 Cheryl 07/07/22 Cheryl 07/07/22 10:47:04 10:47:04 10:47:04 Surgical Procedures FTURO Entry 1 Procedure Description Procedure CYSTOSCOPY LOCAL Modifiers . Surgeon Description CYSTOSCOPY Primary Procedure Yes Primary Surgeon Lionel CARRINGTON MD Start 07/07/22 10:41:00 Stop 07/07/22 10:47:00 Anesthesia Type Local Surgical Service Urology Wound Class 2 - Clean-Contaminated Last Modified By: Edgard ZELAYA, EDITHOR, Cheryl 07/07/22 10:47:06 General Case Data FTURO Pre-Care Text: Classifies surgical wound, implements aseptic technique, initiates traffic control Entry 1 Case Information OR URO 1 FT Case Level None Wound Class 2 - Clean-Contaminated Specialty Urology Preop Diagnosis HX OF BLADDER CANCER Postop Same As Preop No Postop Diagnosis clear bladder Outcomes Met? Yes Last Modified By: Edgard ZELAYA, EDITHOR, Cheryl 07/07/22 10:44:16 Post-Care Text: The patient is free from signs and symptoms of infection EU IntraOp - FTURO Pre-Care Text: Implements protective measures prior to operative or invasive procedure, confirms identity before the operative or invasive procedure, verifies operative procedure, surgical site, and laterality Entry 1 EU Perioperative Protocols Procedure(s) CYSTOSCOPY LOCAL(.) Patient Identity Birthday, ID Band Verified (select at Check, Patient least 2): Participation Consents / H and P HandP, Surgery/Procedure Operative Site N/A Verified Consent Marking Verified Surgical Site Yes Laterality Verified n/a Verified Procedure Verified Yes Correct Patient Yes Position Verified Availability Equipment, Medication Time Out Lionel CARRINGTON MD, Verified (If Participants Edgard ZELAYA, EDITHOR, Applicable) Eulalia Luna CST, Julie A Time Out Complete 07/07/22 10:39:00 Allergies Reviewed? Yes Allergies Reviewed Self/Patient With Body Position Supine Prep Area penis Prep Agents Betadine Solution Skin. Condition Unable to Visualize Additional FISH Specimens Collected Vitals - EU Blood Pressure 146/76 Pulse 61 bpm Respirations 18 br/min SPO2 EBL 0 IandO - EU Total Intake 0 mL Total Output 0 mL Outcomes Met? Yes Last Modified By: PAULINA Rene RN, Ruthann 07/07/22 10:45:30 Post-Care Text: The patient is free from signs and symptoms of injury caused by extraneous objects Sign Out FTURO Entry 1 Before Patient Leaves OR Nurse verbally Yes Nurse verbally n/a confirms with the confirms with the team the name of team that the procedure(s) instrument, sponge, recorded and needle counts are correct (or N/A) Nurse verbally Yes Nurse verbally n/a confirms with the confirms with the team how the team whether there specimen is labeled are any equipment (including patient problems to be name), if applicable addressed Sign Out Complete 07/07/22 10:49:00 Last Modified By: PAULINA Rene RN, Ruthann 07/07/22 10:47:14 Case Comments Finalized By: PAULINA Rene RN, Ruthann Document Signatures Signed By: PAULINA Rene RN, Ruthann 07/07/22 10:47 PAULINA Rene RN, Ruthann 07/07/22 13:40 Normal [facility] Main OR Preoperative Recordo n 07-07-2022 Main OR Preoperative Record Holding Area Document Type FTURO Summary Primary Physician: Lionel CARRINGTON MD Finalized Date/Time: 07/07/22 13:40:51 Pt. Name: MARY DIAZ/Sex: 1950 Male Med Rec #: [id number] Physician: Lionel CARRINGTON MD Financial #: [id number] Pt. Type: O Room/Bed: / Admit/Disch: 07/07/22 10:08:13 - Institution: Case Times Holding FTURO Pre-Care Text: Verifies consent for planned procedure, identifies individual values and wishes concerning care, includes family members in perioperative teaching Secures patient's records' belongings, and valuables, maintains patient's dignity and privacy, and maintains patient confidentiality Entry 1 In Holding 07/07/22 10:19:00 Outcomes Met? Yes Last Modified By: Iram Thomas LPN 07/07/22 10:19:52 Post-Care Text: The patient participates in decisions affecting his or her perioperative plan of care The patient's right to privacy is maintained Surgery Checklist FTURO Entry 1 Patient Birthday, Patient Procedure History and Physical, Identification: Participation Verification: Surgical Consent, With Patient NPO after Midnight: No Date/Time: 07/07/22 10:19:00 Personal Items: Glasses Personal Items clothes Comment: Limitations: na Complaints of Pain: No Pain Comment: na Skin Integrity Intact, [place], Warm, & Dry Vitals - EU Blood Pressure 146/76 Pulse 61 bpm Respirations 18 br/min SPO2 98 % Additional None RN Reviewed Yes Specimens Collected Last Modified By: PAULINA Rene RN, Ruthann 07/07/22 10:39:47 General Comments: tempp:35.9 Finalized By: PAULINA Rene RN, Ruthann Document Signatures Signed By: Iram Thomas LPN 07/07/22 10:20 PAULINA Rene RN, Ruthann 07/07/22 10:39 PAULINA Rene RN, Ruthann 07/07/22 13:40 [facility] Operative Reporton Operative Report Patient: MARY DIAZ Age: 72 years Sex: Male : 1950 Associated Diagnoses: None Author: Lionel CARRINGTON MD Procedure Operative Information Details: Date/ Time: 07/07/2022 10:49:00. 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 Post-Op Dx: Same. Anesthesia Type: Local. Procedure: Local Cystoscopy. Complications: None. Risks/Benefits/Informe d Consent: Surgical risks, benefits, details of the procedure have been explained to the patient, Full informed consent has been obtained. Intraoperative Information Prepped: Patient is brought back to the endoscopy suite, Patient is placed in supine position, Patient prepped in the usual fashion with Betadine solution, 2% Xylocaine Jelly is placed per Urethra, After waiting several minutes the Cystoscope is introduced. The Urethra is: Normal. The Prostatic Urethra is: Absent prostate. The Bladder is: Trabeculated No papillary tumors. No erythematous mucosal lesions. The prior resection beds have necrotic tissue adhered to them that has not sloughed yet. Nothing suspicious in the bladder at this time. The ureteral orifices: Show efflux of clear urine. Specimens Removed: Bladder wash sent for FISH and Cytology test. Devices Implanted: None. Removal: Cystoscope is removed, The patient tolerated it well. Postoperative Information Discharge: Patient is discharged home with antibiotic coverage, Follow up arranged. He will get Mitomycin-C intravesical treatments 1/month in July and August and then a repeat cystoscopy in September. [facility] Comment on above: Result Comment: Elec tronically Signed By: DEVONTE NOBLE, Lionel Gama.tacos\Date and Time Signed: 07/07/22 10:51 EST [facility] FISH ([facility])on 0 07-07-2022 UV Method of Extraction Bladder Wash [facility] Comment on above: Performed By: #### 1 [id number] #### [facility] [address] [place] [address] UV Number of Jars 1 Invalid Interpretation Code [facility] Comment on above: Performed By: #### 1 [id number] #### [facility] [address] [place] [address] UV Specimen Urine Normal [facility] Comment on above: Performed By: #### 1 [id number] #### [facility] [address] [place] [address] UV Type of Service Technical Only Normal [facility] Comment on above: Performed By: #### 1 [id number] #### [facility] [address] [place] [address] Retail - Clinical Noteon Retail - Clinical Note [id number] 0CD:127 [facility] XR KNEE RT 4V or >on 023 XR KNEE RT 4V or > EXAM: XR KNEE RT 4V or > HISTORY: Pain of right knee joint COMPARISON: None. TECHNIQUE: 4 views of the right knee were obtained. FINDINGS/IMPRESSION: 1. There is no evidence of acute fracture or subluxation. 2. Mild tricompartmental osteoarthritis is seen as demonstrated by joint space narrowing with marginal spurring. 3. Chondrocalcinosis. Electronically authenticated by: DEBORAH ZARAGOZA Date: 2022-06-30 17:38 Normal [facility] XR RIBS RT PA Fab 2 XR RIBS RT PA CH EXAMINATION: XR RIBS RT PA CH HISTORY: Fracture of rib COMPARISON: 04/27/2022 FINDINGS: LUNGS: No significant pulmonary parenchymal abnormalities. PLEURA: No pneumothorax, effusion, or pleural thickening. MEDIASTINUM: No visible mass or adenopathy. CARDIAC: No cardiomegaly or cardiac silhouette abnormality. RIBS: Healing right lateral fifth sixth seventh and eighth rib fractures OTHER: Cervical fusion hardware. IMPRESSION: Stable healing right lateral fractures with no significant displacement Clear lungs Electronically authenticated by: SOCORRO SERRANO Date: 2022-05-25 14:51 Normal [facility] XR RIBS RT PA Fab 2 XR RIBS RT PA CH Begin Addendum # 1 There is minimal displacement of the rib fractures measuring up to 2 mm with no distraction Original Report EXAMINATION: XR RIBS RT PA CH HISTORY: Closed fracture of multiple right ribs COMPARISON: No relevant comparison available. FINDINGS: LUNGS: Right basilar infiltrate partially obscuring the right hemidiaphragm and lateral costophrenic angle. The left lung is clear PLEURA: No pneumothorax. Suspected small right pleural effusion MEDIASTINUM: No visible mass or adenopathy. CARDIAC: No cardiomegaly or cardiac silhouette abnormality. RIBS: Acute fractures right posterior lateral fifth through eighth ribs OTHER: Cervical fusion hardware. IMPRESSION: Acute fractures right posterior fifth, sixth, seventh and eighth ribs with right basilar atelectasis and small pleural effusion Normal [facility] CT CHEST WO CONon 04-18-2022 CT CHEST WO CON CT CHEST WO CON CLINICAL: History of fall. Right rib pain and right elbow pain. COMPARISON: 03/14/2020, 02/15/2019 and 03/07/2018 CT scans. TECHNIQUE: High-resolution thin section axial images were obtained from thoracic inlet to the level of the adrenals. Dose reduction: mA and/or kV are were adjusted by automated exposure control software based upon patients height and weight. FINDINGS: Thoracic inlet and axillary structures are intact. No mediastinal or hilar adenopathy by CT criteria. No pericardial effusion or mediastinal fluid collection. Coronary artery calcifications are present. Limited upper abdominal images show no acute findings. Lung windows show moderate to marked centrilobular and paraseptal emphysematous changes of the upper lobes. Benign left lower lobe calcified granuloma series 3 image 47. Pleural-based densities at the lung bases bilaterally consistent with chronic interstitial inflammation or scarring. No new or enlarging pulmonary parenchymal mass. Central airways are patent. Osseous structures show fractures of the right lateral fifth through eighth ribs. The seventh rib shows slight displacement of 1-2 mm, while the other fractures are nondisplaced. No evidence of pneumothorax. Subpleural lucencies in the mid to lower right lung are consistent with paraseptal emphysema. Posterior transpedicular fusion noted at the C7-T1 level. IMPRESSION: 1. Fractures of the lateral right fifth through eighth ribs, nondisplaced except for slight displacement of the seventh rib fracture by 1 to 2 mm. No evidence of pneumothorax or pleural effusion. 2. Moderate to marked centrilobular and paraseptal emphysematous changes in the lungs. No acute airspace infiltrate. Pleural-based densities in the posterior lung bases are suggestive of interstitial inflammatory change, progressive compared to 2019, acute pulmonary infection less likely, however correlate clinically. Electronically authenticated by: SOCORRO BANSAL Date: 2022-04-18 16:17 Normal [facility] CULTURE URINEon 03-12-2022 CULTURE URINE Culture Observations : NO GROWTH. Normal [facility] Comment on above: Performed By: #### S ANA #### [facility] [address] [place] [address] Dr. Johnna Li 02-17-2022 L -- ---- Specimen: [id number] Received: 02/17/22 Status: ZACKERY Nails Num: [id number] Spec Type: Surgical Subm Dr: Lionel Carrington MD Tissues: A Urinary Bladder - biopsy (BLADDER TUMOR) Procedures: HE Stain/2, Gross/Micro L4, IHC First AB, IHC Add AB ---- Age/ Patient Sex Location Account Attending Physician ---- Mary Diaz/M PR [id number] Lionel Carrington MD ---- SPEC NUM: [id number] RECD: 02/17/22 STATUS: ZACKERY NAILS NUM: [id number] JOE: 02/17/22- DR: Lionel Carrington MD ENTERED: 02/17/[address]: SPEC TYPE: Surgical DEPT: S ORDERED: HE Stain/2, Gross/Micro L4, IHC First AB, IHC Add AB ORDERED: HE Stain/2, Gross/Micro L4, IHC First AB, IHC Add AB Supplemental Report Addendum 1 Entered: 02/27/22-1037 This case was sent to [facility] with their interpretation as follows: FINAL DIAGNOSIS Urinary bladder, transurethral resection - 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 Please see [facility] case ( [id number] ) for further details Addendum Signed (signature on file) Sanjiv Correa MD 02/27/22 1037 ---- ---- Specimen: [id number] Received: 02/17/22-549 Status: ZACKERY Nails Num: [id number] Spec Type: Surgical Subm Dr: Lionel Carrington MD Tissues: A Urinary Bladder - biopsy (BLADDER TUMOR) Procedures: HE Stain/2, Gross/Micro L4, IHC First AB, IHC Add AB ---- Patient: Mary Diaz [id number] (Continued) ---- Specimen: [id number] Received: 02/17/22 (Continued) Signed (signature on file) Domi Florez MD 02/18/221899 ---- Specimen: [id number] Received: 02/17/22 Status: ZACKERY Nails Num: [id number] Spec Type: Surgical Subm Dr: Lionel Carrington MD Tissues: A Urinary Bladder - biopsy (BLADDER TUMOR) Procedures: HE Stain/2, Gross/Micro L4, IHC First AB, IHC Add AB ---- Patient: Mary Diaz [id number] (Continued) ---- Specimen: [id number] Received: 02/17/22 (Continued) Pathological Diagnosis Urinary bladder, transurethral resection: - Urothelial proliferation with atypia in a poorly oriented specimen with cautery and crushed artifacts - Detrusor muscle/muscularis propria not present NOTE: This case will be sent to [facility] for consultation and a supplemental report with their interpretation will follow. Clinical Information Bladder tumor Gross Description Received in 10% neutral buffered formalin, labeled with the patient's name, number and bladder tumor are five fragments of soft tissue each measuring 0.5 cm. Entirely submitted in one cassette labeled A1. Microscopic Description Four glass slides with H E stained material including two deeper section slides have been examined. The microscopic findings support the above pathologic diagnosis. Immunohistochemical stains for p53 and CK20, with appropriate controls, have been examined. The atypical cells are positive for CK20. P53 shows wild type pattern of expression. 78288, 63144, 67800 The use of one or more reagents in the above tests is regulated as an analyte specific reagent (ASR). The performance characteristics were determined by the Laboratory of [facility]. Immunohistochemistry assays have not been validated on decalcified tissue. Results should be interpreted with caution given the possibility of false negative results on decalcified specimens. They have not been cleared by the US Food and Drug Administration. The FDA has determined that such clearance or approval is not necessary. (more content not included)... Normal [facility] SARS-CoV-2 (COVID-19) RNA REX+probe Ql (Unsp spec) Negative Normal Negative [facility] Comment on above: Order Comment: Healt hcare Worker?: N Result Comment: Testing for SARS-CoV-2 by RT-PCR This test was developed and its performance characteristics determined by [employer] and validated at the [facility]. This test has not been FDA cleared or approved. This test has been authorized by FDA under an Emergency Use Authorization (EUA). This test has been validated in accordance with the FDA's Guidance Document (Policy for Diagnostics Testing in Laboratories Certified to Perform High Complexity Testing under CLIA prior to Emergency Use Authorization for Coronavirus Disease-2019 during the Public Health Emergency) issued on September 21, 2019. This test is only authorized for the duration of time the declaration that circumstances exist justifying the authorization of the emergency use of in vitro diagnostic tests for detection of SARS-CoV-2 virus and/or diagnosis of COVID-19 infection under section 564(b)(1) of the Act, 21 U.S.C. 360bbb-3(b)(1), unless the authorization is terminated or revoked sooner. PERFORMED BY: [place] [address] PATHOLOGIST [employer] DOMI FLOREZ M.D. Performed By: #### C OVID 19 [facility] #### [address] COVID-19 Positive/NegativeOr dered By: Lionel Carrington on 02-13-2022 SARS-CoV-2 (COVID-19) N gene REX+probe Ql (Resp) Negative Negative [facility] Comment on above: Testing for SARS-CoV -2 by RT-PCR This test was developed and its performance characteristics determined by [employer] and validated at the [facility]. This test has not been FDA cleared or approved. This test has been authorized by FDA under an Emergency Use Authorization (EUA). This test has been validated in accordance with the FDA's Guidance Document (Policy for Diagnostics Testing in Laboratories Certified to Perform High Complexity Testing under CLIA prior to Emergency Use Authorization for Coronavirus Disease-2019 during the Public Health Emergency) issued on September 21, 2019. This test is only authorized for the duration of time the declaration that circumstances exist justifying the authorization of the emergency use of in vitro diagnostic tests for detection of SARS-CoV-2 virus and/or diagnosis of COVID-19 infection under section 564(b)(1) of the Act, 21 U.S.C. 360bbb-3(b)(1), unless the authorization is terminated or revoked sooner. Activated partial thrombopla stin time (aPTT) in platelet poor plasma by coagulation aOrdered By: Lionel Carrington on 02-06-2022 aPTT Coag (PPP) [Time] 34.8 s 25.1-36.5 [facility] Basic Metabolic Panelon 01-19 Calcium [Mass/Vol] 9.7 mg/dL Normal 8.2-10.2 [facility] Comment on above: Result Comment: PERF ORMED BY: [place] [address] PATHOLOGIST [employer] DOMI FLOREZ M.D. Performed By: #### B MP, PTT, PT, CBC #### [address] Chloride [Moles/Vol] 99 mmol/L Normal 95-114 [facility] Comment on above: Performed By: #### B MP, PTT, PT, CBC #### [address] CO2 [Moles/Vol] 26.2 mmol/L Normal 22.0-30.0 [facility] Comment on above: Performed By: #### B MP, PTT, PT, CBC #### [address] Creatinine [Mass/Vol] 1.21 mg/dL Normal 0.64-1.27 [facility] Comment on above: Performed By: #### B MP, PTT, PT, CBC #### [place] [address] [place] Estimated GFR ( [place] > 60 [facility] Comment on above: Result Comment: GFR estimated reference range: According to KDOQI guidelines, <60 ml/min/1.73m2 is sufficient to diagnose a patient with chronic kidney disease. Performed By: #### B MP, PTT, PT, CBC #### [place] [address] [place] Estimated GFR (Non- Am 59 [facility] Comment on above: Performed By: #### B MP, PTT, PT, CBC #### [facility] [address] Glucose [Mass/Vol] 99 mg/dL Normal 70-100 [facility] Comment on above: Result Comment: [place] Glucose Reference Range is dependent on time and content of last meal. Glucose of more than 200 mg/dL in a nonstressed, ambulatory subject supports the diagnosis of Diabetes Mellitus. ADA recommended reference range Performed By: #### B MP, PTT, PT, CBC #### [facility] [address] Potassium [Moles/Vol] 4.4 mmol/L Normal 3.5-5.1 [facility] Comment on above: Performed By: #### B MP, PTT, PT, CBC #### [facility] [address] Sodium [Moles/Vol] 135 mmol/L Low 136-146 [facility] Comment on above: Performed By: #### B MP, PTT, PT, CBC #### [facility] [address] Urea nitrogen [Mass/Vol] 20 mg/dL Normal 9-23 [facility] Comment on above: Performed By: #### B MP, PTT, PT, CBC #### [facility] [address] Basophils Auto (Bld) [#/Vol] Ordered By: Lionel Carrington on 02-06-2022 Basophils (Bld) [#/Vol] 0.0 10*3/uL 0.0-0.2 [facility] Basophils/100 WBC Auto (Bld) Ordered By: Lionel Carrington on 02-06-2022 Basophils/100 WBC (Bld) 0.8 % . [facility] Blood hemoglobin measurement (mass/volume)Ordered By: Lionel Carrington on 02-06-2022 Hemoglobin (Bld) [Mass/Vol] 13.2 g/dL 13.0-17.0 [facility] Blood leukocytes automated c ount (number/volume)Ordered By: Lionel Carrington on 02-06-2022 WBC (Bld) [#/Vol] 5.7 10*3/uL 4.5-11.0 [facility] Complete Blood Count Auto Di ffon 02-06-2022 Basophils (Bld) [#/Vol] 0.0 10*3/uL Normal 0.0-0.2 [facility] Comment on above: Result Comment: PERF ORMED BY: [place] [address] PATHOLOGIST [employer] DOMI FLOREZ M.D. Performed By: #### B MP, PTT, PT, CBC #### [address] Basophils/100 WBC (Bld) 0.8 % Normal . [facility] Comment on above: Performed By: #### B MP, PTT, PT, CBC #### [address] Eosinophils (Bld) [#/Vol] 0.1 10*3/uL Normal 0.0-0.45 [facility] Comment on above: Performed By: #### B MP, PTT, PT, CBC #### [place] [address] [place] Eosinophils/100 WBC (Bld) 1.7 % Normal . [facility] Comment on above: Performed By: #### B MP, PTT, PT, CBC #### [facility] [address] [place] [address] Erythrocyte distribution width (RBC) [Ratio] 14.2 % Normal 12.0-14.8 [facility] Comment on above: Performed By: #### B MP, PTT, PT, CBC #### [facility] [address] [place] [address] [place] Hematocrit (Bld) [Volume fraction] 40.8 % Normal 38.8-50.0 [facility] Comment on above: Performed By: #### B MP, PTT, PT, CBC #### [facility] [address] [place] [address] Hemoglobin (Bld) [Mass/Vol] 13.2 g/dL Normal 13.0-17.0 [facility] Comment on above: Performed By: #### B MP, PTT, PT, CBC #### [address] Lymphocytes (Bld) [#/Vol] 1.6 10*3/uL Normal 1.00-4.8 [facility] Comment on above: Performed By: #### B MP, PTT, PT, CBC #### [address] Lymphocytes/100 WBC (Bld) 27.4 % Normal . [facility] Comment on above: Performed By: #### B MP, PTT, PT, CBC #### [address] MCH (RBC) [Entitic mass] 29.7 pg Normal 27.5-35.2 [facility] Comment on above: Performed By: #### B MP, PTT, PT, CBC #### [address] MCV (RBC) [Entitic vol] 91.6 fL Normal 83.5-101 [facility] Comment on above: Performed By: #### B MP, PTT, PT, CBC #### [address] Mean Corpuscular HGB Conc 32.4 g/dL Low 32.5-35.6 [facility] Comment on above: Performed By: #### B MP, PTT, PT, CBC #### [address] Monocytes (Bld) [#/Vol] 0.5 10*3/uL Normal 0.0-0.8 [facility] Comment on above: Performed By: #### B MP, PTT, PT, CBC #### [address] Monocytes/100 WBC (Bld) 8.7 % Normal . [facility] Comment on above: Performed By: #### B MP, PTT, PT, CBC #### [address] Neutrophils (Bld) [#/Vol] 3.5 10*3/uL Normal 1.8-7.7 [facility] Comment on above: Performed By: #### B MP, PTT, PT, CBC #### [facility] [address] Neutrophils/100 WBC (Bld) 61.4 % Normal . [facility] Comment on above: Performed By: #### B MP, PTT, PT, CBC #### [facility] [address] Nucleated RBC/100 WBC (Bld) [Ratio] 0.1 % Normal 0-0.5 [facility] Comment on above: Performed By: #### B MP, PTT, PT, CBC #### [address] Platelet mean volume (Bld) [Entitic vol] 8.4 fL Normal 6.6-10.1 [facility] Comment on above: Performed By: #### B MP, PTT, PT, CBC #### [address] Platelets (Bld) [#/Vol] 248 10*3/uL Normal 150-450 [facility] Comment on above: Performed By: #### B MP, PTT, PT, CBC #### [address] RBC (Bld) [#/Vol] 4.45 10*6/uL Normal 3.90-5.60 [facility] Comment on above: Performed By: #### B MP, PTT, PT, CBC #### [place] [address] [place] WBC (Bld) [#/Vol] 5.7 10*3/uL Normal 4.5-11.0 [facility] Comment on above: Performed By: #### B MP, PTT, PT, CBC #### [address] Creatinine and Glomerular fi ltration rate.predicted panel (S/P/Bld)Ordered By: Lionel Carrington on 02-06-2022 Creatinine [Mass/Vol] 1.21 mg/dL 0.64-1.27 [facility] Eosinophils Auto (Bld) [#/Vo l]Ordered By: Lionel Carrington on 02-06-2022 Eosinophils (Bld) [#/Vol] 0.1 10*3/uL 0.0-0.45 [facility] Eosinophils/100 WBC Auto (Bl d)Ordered By: Lionel Carrington on 02-06-2022 Eosinophils/100 WBC (Bld) 1.7 % . [facility] Erythrocyte distribution wid th Auto (RBC) [Ratio]Ordered By: Lionel Carrington on 02-06-2022 Erythrocyte distribution width (RBC) [Ratio] 14.2 % 12.0-14.8 [facility] Estimated glomerular filtrat ion rate (GFR) non- AmericanOrdered By: Lionel Carrington on 02-06-2022 GFR/1.73 sq M.predicted among non-blacks MDRD (S/P/Bld) [Vol rate/Area] 59 mL/Min [facility] Hematocrit Auto (Bld) [Volum e fraction]Ordered By: Lionel Carrington on 02-06-2022 Hematocrit (Bld) [Volume fraction] 40.8 % 38.8-50.0 [facility] Laboratory - CoagulationOrde red By: Lionel Carrington on 02-06-2022 PT Coag (PPP) [Time] 11.0 s 9.0-12.9 [facility] Laboratory - Hematology and Cell countsOrdered By: Lionel Carrington on 02-06-2022 Nucleated RBC/100 WBC (Bld) [Ratio] 0.1 % 0-0.5 [facility] Lymphocytes Auto (Bld) [#/Vo l]Ordered By: Lionel Carrington on 02-06-2022 Lymphocytes (Bld) [#/Vol] 1.6 10*3/uL 1.00-4.8 [facility] Lymphocytes/100 WBC Auto (Bl d)Ordered By: Lionel Carrington on 02-06-2022 Lymphocytes/100 WBC (Bld) 27.4 % . [facility] MCH Auto (RBC) [Entitic mass ]Ordered By: Lionel Carrington on 02-06-2022 MCH (RBC) [Entitic mass] 29.7 pg 27.5-35.2 [facility] MCHC Auto (RBC) [Mass/Vol]Or dered By: Lionel Carrington on 02-06-2022 MCHC (RBC) [Mass/Vol] 32.4 g/dL 32.5-35.6 [facility] MCV Auto (RBC) [Entitic vol] Ordered By: Lionel Carrington on 02-06-2022 MCV (RBC) [Entitic vol] 91.6 fL 83.5-101 [facility] Monocytes Auto (Bld) [#/Vol] Ordered By: Lionel Carrington on 02-06-2022 Monocytes (Bld) [#/Vol] 0.5 10*3/uL 0.0-0.8 [facility] Monocytes/100 WBC Auto (Bld) Ordered By: Lionel Carrington on 02-06-2022 Monocytes/100 WBC (Bld) 8.7 % . [facility] Neutrophils Auto (Bld) [#/Vo l]Ordered By: Lionel Carrington on 02-06-2022 Neutrophils (Bld) [#/Vol] 3.5 10*3/uL 1.8-7.7 [facility] Neutrophils/100 WBC Auto (Bl d)Ordered By: Lionel Carrington on 02-06-2022 Neutrophils/100 WBC (Bld) 61.4 % . [facility] No Panel InformationOrdered By: Lionel Carrington on 02-06-2022 Estimated GFR () > 60 mL/Min [facility] Comment on above: GFR estimated refere nce range: According to KDOQI guidelines, <60 ml/min/1.73m2 is sufficient to diagnose a patient with chronic kidney disease. Pharmacy Creatinine Clearance (Chem N/A [facility] Partial Thromboplastin Timeo n 02-06-2022 aPTT Coag (Bld) [Time] 34.8 s Normal 25.1-36.5 [facility] Comment on above: Result Comment: PERF ORMED BY: [facility] [address] [place] [address] PATHOLOGIST [employer] DOMI FLOREZ M.D. Performed By: #### B MP, PTT, PT, CBC #### [facility] [address] Platelet mean volume Auto (B ld) [Entitic vol]Ordered By: Lionel Carrington on 02-06-2022 Platelet mean volume (Bld) [Entitic vol] 8.4 fL 6.6-10.1 [facility] Platelet poor plasma interna tional normalized ratio (INR) by coagulation assay (relatOrdered By: Lionel Carrington on 02-06-2022 INR Coag (PPP) [Relative time] 1.0 {INR} [facility] Comment on above: INR Therapeutic Rang e A) Pre- and Peroperative OAT started two weeks before surgery. NOT HIP SURGERY: 1.5 - 2.5 HIP SURGERY: 2 - 3 B) Primary and secondary prevention of venous THROMBOSIS: 2 - 3 C) Active venous thrombosis, pulmonary embolism and prevention of recurrent venous thrombosis: 2 - 3 D) Prevention of arterial thromboembolism including patients with mechanical heart valves: 3 - 4.5 Platelets Auto (Bld) [#/Vol] Ordered By: Lionel Carrington on 02-06-2022 Platelets (Bld) [#/Vol] 248 10*3/uL 150-450 [facility] Prothrombin Time INRon 02-06 INR Coag (PPP) [Relative time] 1.0 {INR} Normal [facility] Comment on above: Result Comment: INR Therapeutic Range A) Pre- and Peroperative OAT started two weeks before surgery. NOT HIP SURGERY: 1.5 - 2.5 HIP SURGERY: 2 - 3 B) Primary and secondary prevention of venous THROMBOSIS: 2 - 3 C) Active venous thrombosis, pulmonary embolism and prevention of recurrent venous thrombosis: 2 - 3 D) Prevention of arterial thromboembolism including patients with mechanical heart valves: 3 - 4.5 Performed By: #### B MP, PTT, PT, CBC #### [facility] [address] PT Coag (PPP) [Time] 11.0 s Normal 9.0-12.9 [facility] Comment on above: Performed By: #### B MP, PTT, PT, CBC #### [facility] [address] RBC Auto (Bld) [#/Vol]Ordere d By: Lionel Carrington on 02-06-2022 RBC (Bld) [#/Vol] 4.45 10*6/uL 3.90-5.60 [facility] Serum or plasma calcium eliezer urement (mass/volume)Ordered By: Lionel Carrington on 02-06-2022 Calcium [Mass/Vol] 9.7 mg/dL 8.2-10.2 [facility] Serum or plasma chloride sammy surement (moles/volume)Ordered By: Lionel Carrington on 02-06-2022 Chloride [Moles/Vol] 99 mmol/L 95-114 [facility] Serum or plasma glucose eliezer urement (mass/volume)Ordered By: Lionel Carrington on 02-06-2022 Glucose [Mass/Vol] 99 mg/dL 70-100 [facility] Comment on above: ADA recommended refe rence range Random Glucose Reference Range is dependent on time and content of last meal. Glucose of more than 200 mg/dL in a nonstressed, ambulatory subject supports the diagnosis of Diabetes Mellitus. Serum or plasma potassium me asurement (moles/volume)Ordered By: Lionel Carrington on 02-06-2022 Potassium [Moles/Vol] 4.4 mmol/L 3.5-5.1 [facility] Serum or plasma sodium measu rement (moles/volume)Ordered By: Lionel Carrington on 02-06-2022 Sodium [Moles/Vol] 135 mmol/L 136-146 [facility] Serum or plasma total carbon dioxide measurement (moles/volume)Ordered By: Lionel Carrington on 02-06-2022 CO2 [Moles/Vol] 26.2 mmol/L 22.0-30.0 [facility] Serum or plasma urea nitroge n measurement (mass/volume)Ordered By: Lionel Carrington on 02-06-2022 Urea nitrogen [Mass/Vol] 20 mg/dL 9-23 [facility] COVID-19 Positive/NegativeOr dered By: Lionel Carrington on 10-27-2021 SARS-CoV-2 (COVID-19) N gene REX+probe Ql (Resp) Negative Negative [facility] Comment on above: Testing for SARS-CoV -2 by RT-PCR This test was developed and its performance characteristics determined by [employer] and validated at the [facility]. This test has not been FDA cleared or approved. This test has been authorized by FDA under an Emergency Use Authorization (EUA). This test has been validated in accordance with the FDA's Guidance Document (Policy for Diagnostics Testing in Laboratories Certified to Perform High Complexity Testing under CLIA prior to Emergency Use Authorization for Coronavirus Disease-2019 during the Public Health Emergency) issued on September 21, 2019. This test is only authorized for the duration of time the declaration that circumstances exist justifying the authorization of the emergency use of in vitro diagnostic tests for detection of SARS-CoV-2 virus and/or diagnosis of COVID-19 infection under section 564(b)(1) of the Act, 21 U.S.C. 360bbb-3(b)(1), unless the authorization is terminated or revoked sooner. Activated partial thrombopla stin time (aPTT) in platelet poor plasma by coagulation aOrdered By: Lionel Carrington on 10-17-2021 aPTT Coag (PPP) [Time] 36.2 s 25.1-36.5 [facility] Basophils Auto (Bld) [#/Vol] Ordered By: Lionel Carrington on 10-17-2021 Basophils (Bld) [#/Vol] 0.0 10*3/uL 0.0-0.2 [facility] Basophils/100 WBC Auto (Bld) Ordered By: Lionel Carrington on 10-17-2021 Basophils/100 WBC (Bld) 0.6 % [facility] Blood hemoglobin measurement (mass/volume)Ordered By: Lionel Carrington on 10-17-2021 Hemoglobin (Bld) [Mass/Vol] 13.6 g/dL 13.0-17.0 [facility] Blood leukocytes automated c ount (number/volume)Ordered By: Lionel Carrington 10-17-2021 WBC (Bld) [#/Vol] 5.9 10*3/uL 4.5-11.0 [facility] Creatinine and Glomerular fi ltration rate.predicted panel (S/P/Bld)Ordered By: Lionel Carrington on 10-17-2021 Creatinine [Mass/Vol] 0.96 mg/dL 0.64-1.27 [facility] Eosinophils Auto (Bld) [#/Vo l]Ordered By: Lionel Carrington on 10-17-2021 Eosinophils (Bld) [#/Vol] 0.1 10*3/uL 0.0-0.45 [facility] Eosinophils/100 WBC Auto (Bl d)Ordered By: Lionel Carrington on 10-17-2021 Eosinophils/100 WBC (Bld) 2.0 % [facility] Erythrocyte distribution wid th Auto (RBC) [Ratio]Ordered By: Lionel Carrington on 10-17-2021 Erythrocyte distribution width (RBC) [Ratio] 14.5 % 12.0-14.8 [facility] Estimated glomerular filtrat ion rate (GFR) non- AmericanOrdered By: Lionel Carrington on 10-17-2021 GFR/1.73 sq M.predicted among non-blacks MDRD (S/P/Bld) [Vol rate/Area] > 60 mL/Min [facility] Hematocrit Auto (Bld) [Volum e fraction]Ordered By: Lionel Carrington on 10-17-2021 Hematocrit (Bld) [Volume fraction] 41.5 % 38.8-50.0 [facility] Laboratory - CoagulationOrde red By: Lionel Carrington on 10-17-2021 PT Coag (PPP) [Time] 11.0 s 9.0-12.9 [facility] Laboratory - Hematology and Cell countsOrdered By: Lionel Carrington on 10-17-2021 Nucleated RBC/100 WBC (Bld) [Ratio] 0.0 % 0-0.5 [facility] Lymphocytes Auto (Bld) [#/Vo l]Ordered By: Lionel Carrington on 10-17-2021 Lymphocytes (Bld) [#/Vol] 1.6 10*3/uL 1.00-4.8 [facility] Lymphocytes/100 WBC Auto (Bl d)Ordered By: Lionel Carrington on 10-17-2021 Lymphocytes/100 WBC (Bld) 26.8 % [facility] MCH Auto (RBC) [Entitic mass ]Ordered By: Lionel Carrington on 10-17-2021 MCH (RBC) [Entitic mass] 29.3 pg 27.5-35.2 [facility] MCHC Auto (RBC) [Mass/Vol]Or dered By: Lionel Carrington on 10-17-2021 MCHC (RBC) [Mass/Vol] 32.7 g/dL 32.5-35.6 [facility] MCV Auto (RBC) [Entitic vol] Ordered By: Lionel Carrington on 10-17-2021 MCV (RBC) [Entitic vol] 89.8 fL 83.5-101 [facility] Monocytes Auto (Bld) [#/Vol] Ordered By: Lionel Carrington on 10-17-2021 Monocytes (Bld) [#/Vol] 0.6 10*3/uL 0.0-0.8 [facility] Monocytes/100 WBC Auto (Bld) Ordered By: Lionel Carrington on 10-17-2021 Monocytes/100 WBC (Bld) 10.6 % [facility] Neutrophils Auto (Bld) [#/Vo l]Ordered By: Lionel Carrington on 10-17-2021 Neutrophils (Bld) [#/Vol] 3.5 10*3/uL 1.8-7.7 [facility] Neutrophils/100 WBC Auto (Bl d)Ordered By: Lionel Carrington on 10-17-2021 Neutrophils/100 WBC (Bld) 60.0 % [facility] No Panel InformationOrdered By: Lionel Carrington on 10-17-2021 Estimated GFR () > 60 mL/Min [facility] Comment on above: GFR estimated refere nce range: According to KDOQI guidelines, <60 ml/min/1.73m2 is sufficient to diagnose a patient with chronic kidney disease. Pharmacy Creatinine Clearance (Chem N/A [facility] Platelet mean volume Auto (B ld) [Entitic vol]Ordered By: Lionel Carrington on 10-17-2021 Platelet mean volume (Bld) [Entitic vol] 8.3 fL 6.6-10.1 [facility] Platelet poor plasma interna tional normalized ratio (INR) by coagulation assay (relatOrdered By: Lionel Carrington on 10-17-2021 INR Coag (PPP) [Relative time] 1.0 {INR} [facility] Comment on above: INR Therapeutic Rang e A) Pre- and Peroperative OAT started two weeks before surgery. NOT HIP SURGERY: 1.5 - 2.5 HIP SURGERY: 2 - 3 B) Primary and secondary prevention of venous THROMBOSIS: 2 - 3 C) Active venous thrombosis, pulmonary embolism and prevention of recurrent venous thrombosis: 2 - 3 D) Prevention of arterial thromboembolism including patients with mechanical heart valves: 3 - 4.5 Platelets Auto (Bld) [#/Vol] Ordered By: Lionel Carrington on 10-17-2021 Platelets (Bld) [#/Vol] 249 10*3/uL 150-450 [facility] RBC Auto (Bld) [#/Vol]Ordere d By: Lionel Carrington on 10-17-2021 RBC (Bld) [#/Vol] 4.62 10*6/uL 3.90-5.60 [facility] Serum or plasma calcium eliezer urement (mass/volume)Ordered By: Lionel Carrington on 10-17-2021 Calcium [Mass/Vol] 9.7 mg/dL 8.2-10.2 [facility] Serum or plasma chloride sammy surement (moles/volume)Ordered By: Lionel Carrington on 10-17-2021 Chloride [Moles/Vol] 101 mmol/L 95-114 [facility] Serum or plasma glucose eliezer urement (mass/volume)Ordered By: Lionel Carrington on 10-17-2021 Glucose [Mass/Vol] 87 mg/dL 70-100 [facility] Comment on above: ADA recommended refe rence range Random Glucose Reference Range is dependent on time and content of last meal. Glucose of more than 200 mg/dL in a nonstressed, ambulatory subject supports the diagnosis of Diabetes Mellitus. Serum or plasma potassium me asurement (moles/volume)Ordered By: Lionel Carrington on 10-17-2021 Potassium [Moles/Vol] 4.4 mmol/L 3.5-5.1 [facility] Serum or plasma sodium measu rement (moles/volume)Ordered By: Lionel Carrington on 10-17-2021 Sodium [Moles/Vol] 136 mmol/L 136-146 [facility] Serum or plasma total carbon dioxide measurement (moles/volume)Ordered By: Lionel Carrington on 10-17-2021 CO2 [Moles/Vol] 25.6 mmol/L 22.0-30.0 [facility] Serum or plasma urea nitroge n measurement (mass/volume)Ordered By: Lionel Carrington on 10-17-2021 Urea nitrogen [Mass/Vol] 18 mg/dL 03-13 [facility] Vital Signs Date Time Vital Sign Value Performing Clinician Facility 02-10-2023 14:16-0400 Blood Pressure Location [facility] 02-10-2023 14:16-0400 Diastolic blood pressure 80 mm[Hg] [facility] 02-10-2023 14:16-0400 Heart rate 70 /min [facility] 02-10-2023 14:16-0400 Respiratory rate 16 /min [facility] 02-10-2023 14:16-0400 Systolic blood pressure 124 mm[Hg] [facility] 12-03-2022 10:20-0400 Body height 182.88 cm Zoran Chavez Other [facility] Other 12-03-2022 10:20-0400 Body mass index (BMI) [Ratio] 25.49 kg/m2 Zoran Chavez Other [facility] Other 12-03-2022 10:20-0400 Body weight 85.28 kg Zoran Chavez Other [facility] Other 10-22-2022 10:20-0400 Body height 182.88 cm Zoran Chavez Other [facility] Other 10-22-2022 10:20-0400 Body mass index (BMI) [Ratio] 25.63 kg/m2 Zoran Chavez Other [facility] Other 10-22-2022 10:20-0400 Body weight 85.73 kg Zoran Chavez Other [facility] Other 10-22-2022 10:20-0400 Diastolic blood pressure 80 mm[Hg] Zoran Chavez Other [facility] Other 10-22-2022 10:20-0400 Systolic blood pressure 110 mm[Hg] Zoran Chavez Other [facility] Other 02-24-2022 10:43-0400 Blood Pressure Location Lionel CARRINGTON [facility] 02-24-2022 10:43-0400 Diastolic blood pressure 80 mm[Hg] Lioneljameel CARRINGTON [facility] 02-24-2022 10:43-0400 Heart rate 65 /min Lionel CARRINGTON [facility] 02-24-2022 10:43-0400 Respiratory rate 16 /min Lionel CARRINGTON [facility] 02-24-2022 10:43-0400 Systolic blood pressure 140 mm[Hg] Lionel CARRINGTON [facility] 02-17-2022 15:15-0400 Diastolic blood pressure 83 mm[Hg] MD Yolande Staley Work Phone: [facility] 02-17-2022 15:15-0400 Heart rate 58 /min MD Yolande Staley Work Phone: [facility] 02-17-2022 15:15-0400 Respiratory rate 16 /min MD Yolande Staley Work Phone: [facility] 02-17-2022 15:15-0400 SaO2% (BldA) [Mass fraction] 95 % MD Yolande Staley Work Phone: [facility] 02-17-2022 15:15-0400 Systolic blood pressure 166 mm[Hg] MD Yolande Staley Work Phone: [facility] 02-17-2022 14:30-0400 Body height 182.88 cm MD Yolande Staley Work Phone: [facility] 02-17-2022 14:30-0400 Body mass index (BMI) [Ratio] 26.2 kg/m2 MD Yolande Staley Work Phone: [facility] 02-17-2022 14:30-0400 Body weight 87.7 kg MD Yolande Staley Work Phone: [facility] 02-17-2022 14:17-0400 Body temperature 97.6 [degF] MD Yolande Staley Work Phone: [facility] 02-17-2022 13:52-0400 Inhaled oxygen flow rate 10 L/min MD Yolande Staley Work Phone: [facility] 10-17-2021 11:42-0400 Body height 180.34 cm MD oYlande Staley Work Phone: [facility] 10-17-2021 11:42-0400 Body mass index (BMI) [Ratio] 27 kg/m2 MD Yolande Staley Work Phone: [facility] 10-17-2021 11:42-0400 Body temperature 98.4 [degF] MD Yolande Staley Work Phone: [facility] 10-17-2021 11:42-0400 Body weight 88 kg MD Yolande Staley Work Phone: [facility] 10-17-2021 11:42-0400 Diastolic blood pressure 90 mm[Hg] MD Yolande Staley Work Phone: [facility] 10-17-2021 11:42-0400 Heart rate 64 /min MD Yolande Staley Work Phone: [facility] 10-17-2021 11:42-0400 SaO2% (BldA) [Mass fraction] 100 % MD Yolande Staley Work Phone: [facility] 10-17-2021 11:42-0408 Systolic blood pressure 172 mm[Hg] MD Yolande Staley Work Phone: [facility] Encounters Encounter Date Encounter Type Care Provider Facility Start: 04-27-2023 End: 04-28-2023 ambulatory Lionel CARRINGTON Facility:[facility] Start: 04-27-2023 End: 04-27-2023 Patient encounter procedure Lionel CARRINGTON [facility] Start: 03-10-2023 End: 03-11-2023 ambulatory Qamar R NILL Facility:CD:[id number] Start: 02-10-2023 End: 02-11-2023 ambulatory Qamar R NILL [facility] Start: 02-10-2023 End: 02-10-2023 Patient encounter procedure Qamar R NILL [facility] Start: 01-20-2023 End: 01-21-2023 ambulatory Lionel CARRINGTON Facility:[facility] Start: 01-14-2023 End: 01-15-2023 ambulatory Lionel CARRINGTON Facility:[id number] Start: 01-05-2023 End: 01-06-2023 ambulatory Lionel CARRINGTON Facility:[facility] Start: 01-05-2023 End: 01-05-2023 Patient encounter procedure Lionel CARRINGTON [facility] Start: 01-01-2023 End: 01-01-2023 ambulatory Yolande Staley Facility:[facility] Start: 01-01-2023 End: 01-01-2023 ambulatory MD Yolande Staley Work Phone: [facility] Work Phone: Start: 01-01-2023 End: 01-01-2023 Patient encounter procedure MD Yolande Staley Work Phone: [facility] [place] Work Phone: Start: 12-28-2022 End: 12-29-2022 ambulatory Tamiko Osman MD Facility:[facility] Start: 12-14-2022 End: 12-15-2022 ambulatory Tamiko Osman MD Facility:[facility] Start: 12-03-2022 End: 12-03-2022 ambulatory Zoran Chavez [facility] Other Start: 12-03-2022 Office outpatient visit 15 minutes Zoran Chavez [facility] Start: 11-20-2022 End: 11-21-2022 ambulatory ROMELRIUS OSMAN Facility:[facility] Start: 10-28-2022 End: 10-29-[address] NELLY HERRERA Facility:[facility] Start: 10-27-2022 End: 11-18-[address] ZORAN CHAVEZ Facility:[facility] Start: 10-23-2022 End: 10-24-[address] ZORAN CHAVEZ Facility:[facility] Start: 10-22-2022 End: 10-22-2022 ambulatory Zoran Chavez [facility] Other Start: 10-22-2022 Office outpatient visit 15 minutes Zoran Chavez [facility] Start: 10-05-2022 End: 10-06-[address] YOLANDE STALEY . Facility:[facility] Start: 09-29-2022 End: 09-30-2022 ambulatory Linoel CARRINGTON Facility:[facility] Start: 09-24-2022 End: 09-25-[address] YOLANDE STALEY . Facility:[facility] Start: 09-21-2022 End: 09-22-[address] LIONEL CARRINGTON . Facility:[facility] Start: 09-21-2022 End: 09-22-2022 ambulatory Lionel CARRINGTON Facility: [facility] Start: 09-21-2022 End: 09-21-2022 Patient encounter procedure Lionel CARRINGTON [facility] Start: 08-19-2022 End: 08-20-[address] LIONEL CARRINGTON . Facility: Start: 08-17-2022 End: 08-18-2022 ambulatory Lionel CARRINGTON Facility:[facility] Start: 08-17-2022 End: 08-17-2022 Patient encounter procedure [facility]ARR[facility] Start: 08-04-2022 End: 08-05-[address] YOLANDE STALEY . Facility:[facility] Start: 07-28-2022 End: 07-29-[address] YOLANDE STALEY . Facility:[facility] Start: 07-23-2022 End: 07-23-[address] LIONEL CARRINGTON . Facility:[facility] Start: 07-20-2022 End: 07-21-2022 ambulatory Lionel CARRINGTON Facility:[facility] Start: 07-20-2022 End: 07-20-2022 Patient encounter procedure Lionel CARRINGTON [facility] Start: 07-07-2022 End: 07-08-2022 ambulatory Lionel CARRINGTON Facility:[facility] Start: 07-07-2022 End: 07-07-2022 Patient encounter procedure Lionel CARRINGTON [facility] Start: 06-30-2022 End: 07-01-[address] YOLANDE STALEY . Facility:[facility] Start: 06-04-2022 End: 06-04-[address] YOLANDE STALEY . Facility:[facility] Start: 05-25-2022 End: 05-26-[address] YOLANDE STALEY . Facility:[facility] Start: 05-18-2022 End: 05-18-2022 Patient encounter procedure Lionel CARRINGTON [facility] Start: 04-27-2022 End: 04-28-[address] YOLANDE STALEY . Facility:[facility] Start: 04-18-2022 End: 04-18-[address] FELICIA GALDAMEZ . Facility:[facility] Start: 04-15-2022 End: 04-15-2022 Patient encounter procedure Lionel CARRINGTON [facility] Start: 03-26-2022 End: 03-26-[address] LIONEL CARRINGTON . Facility:[facility] Start: 03-12-2022 End: 03-13-[address] YOLANDE STALEY . Facility:[facility] Start: 03-09-2022 End: 03-09-2022 Patient encounter procedure Lionel CARRINGTON [facility] Start: 02-27-2022 End: 02-27-2022 Lab Drop off Lionel CARRINGTON [facility] Start: 02-27-2022 End: 02-27-2022 Patient encounter procedure Lionel CARRINGTON [facility] Start: 02-24-2022 End: 02-24-2022 Patient encounter procedure Lionel CARRINGTON [facility] Start: 02-17-2022 End: 02-17-2022 ambulatory Lionel Carrington Facility:[facility] Start: 02-17-2022 End: 02-17-2022 Admission to same day surgery center MD Yolande Staley Work Phone: [facility] [place] [facility] [place] Start: 02-13-2022 End: 02-13-2022 ambulatory Lionel Carrington Facility:[facility] Start: 02-13-2022 End: 02-13-2022 Patient encounter procedure MD Yolande Staley Work Phone: [facility] Start: 02-06-2022 End: 02-06-2022 ambulatory Lionel Carrington Facility:[facility] Start: 02-06-2022 End: 02-06-2022 Patient encounter procedure MD Yolande Staley Work Phone: [facility] Start: 11-11-2021 End: 11-11-2021 Patient encounter procedure Lionel Burgos CARRINGTON [facility] Start: 11-05-2021 End: 11-05-2021 Patient encounter procedure Lionel Burgos CARRINGTON [facility] [place] Start: 10-29-2021 End: 10-29-2021 Admission to same day surgery center MD Yolande Staley Work Phone: [facility] [place] Start: 10-27-2021 End: 10-27-2021 Patient encounter procedure MD Yolaned Staley Work Phone: [facility] Start: 10-17-2021 End: 10-17-2021 Patient encounter procedure MD Yolande Staley Work Phone: [facility] Procedures Date Procedure Procedure Detail Performing Clinician Start: 01-01-2023 MR lumbar spine wo con MD Yolande Staley Work Phone: Start: 09-21-[address] NELLY HERRERA Comment on above: Performed By: #### P SAD #### [facility] [address] [place] [address] Dr. Johnna Dixon Start: 02-17-2022 Transurethral resect ion of bladder neoplasm MD Yolande Staley Work Phone: Start: 02-17-2022 Transurethral resect ion of bladder neoplasm Lionel CARRINGTON Start: 10-29-2021 Transurethral resect ion of bladder neoplasm MD Yolande Staley Work Phone: Start: 10-29-2021 Diagnostic radiograp hy of abdomen MD Yolande Staley Work Phone: Start: 10-29-2021 Transurethral resect ion of bladder neoplasm Lionel CARRINGTON Start: 10-17-2021 Plain chest X-ray MD Mcgowan Work Phone: Start: 10-14-2021 Cystourethroscopy wi th dilation of urethral stricture Lionel CARRINGTON Start: 06-22-2017 Repair of umbilical hernia Lionel CARRINGTON Comment on above: Umbilical hernia rep air with mesh ( assisted with robot) Start: 05-20-2017 Arthroscopy of shoulder Lionel CARRINGTON Comment on above: LEFT SHOULDER ARTHRO SCOPIC, CHONDROPLASTY,DEBRIDEMENT OF PARTIAL ROTATOR CUFF TEAR, REMOVAL RETAINED SUTURE Start: 08-29-2014 bilateral fifth part ial metatarsal osteotomies and Silver Tailor's bunionectomies Lionel CARRINGTON Start: 08-15-2014 Radical perineal prostatectomy Lionel CARRINGTON Comment on above: had recently at [facility] Start: 05-21-2014 Colonoscopy Qamar DOSS Start: 06-21-2010 Complete repair of r otator cuff Lionel CARRINGTON Comment on above: right Start: 06-21-1998 Shoulder reconstruction Lionel CARRINGTON Comment on above: left possibly a scre w in there per pt Start: 06-21-1964 Appendectomy Lionel KEELY STERLING Arthroplasty of the ankle Jose Alfredo henderson DEVONTE Comment on above: 1990 [facility] Lion[facility] Plan of Treatment Date Care Activity Detail Author Start: 10-04-2023 ambulatory Ambulatory Facility:[facility] Start: 02-17-2022 End: 02-17-2022 [facility] Work Phone: Start: 02-17-2022 Transurethral resect ion of bladder neoplasm OR Cysto/TURBT/Bladder Biopsy/Fulg (Not Applicable) [facility] Start: 02-17-2022 End: 02-17-2022 Admission to same day surgery center Departed Surgical Day Care [facility] [place] Start: 02-13-2022 End: 02-13-2022 Patient encounter procedure Departed Clinical [facility] Fmw-Mlg-Lgykkzqx Testing Patient referral [facility] Work Phone: Immunizations Immunization Date Immunization Notes Care Provider [facility] 04-16-2022 SARS-CoV-2 (COVID-19 ) [id number] Qamar SMITH [facility] 03-27-2022 influenza virus vacc ine, unspecified formulation Qamar SMITH [facility] 05-06-2021 COVID-19 mRNA-1273 (Moderna) MD Yolande Staley Work Phone: [facility] 09-19-2020 COVID-19 mRNA-1273 (Moderna) MD Yolande Staley Work Phone: [facility] Comment on above: Result Comment: 2022: [id number] 08-22-2020 COVID-19 mRNA-1273 (Moderna) MD Yolande Staley Work Phone: [facility] Comment on above: Result Comment: 2022: [id number] 06-21-2020 SARS-CoV-2 (COVID-19 ) mRNA-1273 vaccine Lionel CARRINGTON [facility] 05-23-2020 influenza virus vacc ine, unspecified formulation [email or web address] [facility] 04-03-2020 influenza virus vacc ine, unspecified formulation [email or web address] [facility] 05-29-2019 influenza virus vacc ine, unspecified formulation [email or web address] [facility] 04-14-2019 influenza, unspecifi ed formulation [employer] [facility] 09-26-2018 tetanus and diphther ia toxoids, adsorbed, preservative free, for adult use (2 Lf of tetanus toxoid and 2 Lf of diphtheria toxoid) [employer] [facility] 10-11-2017 pneumococcal polysaccharide vaccine, 23 valent [email or web address] [facility] 07-22-2016 pneumococcal conjuga te vaccine, 13 valent [email or web address] [facility] 06-29-2013 tetanus toxoid, redu mirtha diphtheria toxoid, and acellular pertussis vaccine, adsorbed [email or web address] [facility] 03-10-2000 Td(adult) unspecifie d formulation [email or web address] [facility] Payers Date Payer Category Payer Unknown 2022 Self-pay [id number] 1958 Medicare [id number] 1958 Unknown [id number] 2.16.840.1.253622.19 1951 Unknown [id number] 2.16.840.1.827049.3.579.2. 593 1951 Unknown [id number] 2.16.840.1.933103.3.579.2. 593 1951 Unknown [id number] 2.16.840.1.185641.3.579.2. 593 1951 Unknown [id number] 2.16.840.1.270780.3.579.2. 593 1951 Unknown [id number] 2.16.840.1.126846.3.579.2. 593 1951 Unknown [id number] 2.16.840.1.844614.3.579.2. 593 1951 Unknown [id number] 2.16.840.1.319336.3.579.2. 593 1951 Unknown [id number] 2.16.840.1.494458.3.579.2. 593 1951 Unknown [id number] 2.16.840.1.742805.3.579.2. 593 1951 Unknown [id number] 2.16.840.1.822323.3.579.2. 593 1951 Unknown [id number] 2.16.840.1.220806.3.579.2. 593 1951 Unknown [id number] 2.16.840.1.619204.3.579.2. 593 1951 Unknown [id number] 2.16.840.1.121743.3.579.2. 593 1951 Unknown [id number] 2.16.840.1.469076.3.579.2. 593 1951 Unknown [id number] 2.16.840.1.617257.3.579.2. 593 1951 Unknown [id number] 2.16.840.1.709824.3.579.2. 593 1951 Unknown [id number] 2.16.840.1.979949.3.579.2. 593 1951 Unknown [id number] 2.16.840.1.258317.3.579.2. 593 1951 Unknown [id number] 2.16.840.1.218688.3.579.2. 593 1951 Unknown [id number] 2.16.840.1.848874.3.579.2. 196 1951 Unknown [id number] 2.16.840.1.386847.3.579.2. 196 1951 Unknown [id number] 2.16.840.1.930179.3.579.2. 196 1951 Unknown [id number] 2.16.840.1.989883.3.579.2. 727 1951 Unknown [id number] 2.16.840.1.210932.3.579.2. 727 1951 Unknown [id number] 2.16.840.1.586315.3.579.2. 727 1951 Unknown [id number] 2.16.840.1.772840.3.579.2. 727 1951 Unknown [id number] 2.16.840.1.053364.3.579.2. 727 1951 Unknown [id number] 2.16.840.1.091881.3.579.2. 727 1951 Unknown [id number] 2.16.840.1.775513.3.579.2. 727 1951 Unknown [id number] 2.16.840.1.250375.3.579.2. 727 1951 Unknown [id number] 2.16.840.1.556373.3.579.2. 727 1951 Unknown [id number] 2.16.840.1.058015.3.579.2. 727 1951 Unknown [id number] 2.16.840.1.564061.3.579.2. 727 1951 Unknown [id number] 2.16.840.1.951207.3.579.2. 727 1951 Unknown [id number] 2.16.840.1.197059.3.579.2. 727 1951 Unknown [id number] 2.840.1.327169.3.579.2. 727 Medicare Medicare [id number] Private Health Insurance [id number] Unknown [place] [id number] Unknown [id number] 2840.1.014275.3.579.2. 531 Unknown [id number] 08.06.830.1.627911.3.579.2. 531 Unknown [id number] 20.1.670130.3.579.2. 531 Unknown [id number] 20.1.451632.3.579.2. 531 Social History Date Type Detail Facility Start: 10-17-2021 End: 02-10-2023 Tobacco smoking status NHIS Ex-smoker (finding) [facility] Comment on above: pt quit smoking 10+ yrs ago Start: 1950 Sex Assigned At Male F [facility] Start: 11-05-2021 Tobacco smoking status Never s moked tobacco (finding) [facility] Tobacco smoking status Never [facility] Comment on above: pt quit smoking 10+ yrs ago Sex Assigned At Male [facility] Medical Equipment Procedure Code Equipment Code Equipment Original Text Equipment Identifier Dates Transurethral resection of bladder tumor (TURBT) with cystoscopy Polymeric ureteral stent [id number] FDA Start: 10-29-2021 Decompression, spine, cervical, posterior approach Bone-screw internal spinal fixation system, non-sterile ()[id number] FDA Start: 04-18-2020 Decompression, spine, cervical, posterior approach Bone-screw internal spinal fixation system, non-sterile ()[id number] FDA Start: 04-18-2020 Decompression, spine, cervical, posterior approach Bone-screw internal spinal fixation system, non-sterile ()[id number] FDA Start: 04-18-2020 Decompression, spine, cervical, posterior approach Bone-screw internal spinal fixation system, non-sterile ()[id number] FDA Start: 04-18-2020 Decompression, spine, cervical, posterior approach Bone-screw internal spinal fixation system, non-sterile ()[id number] FDA Start: 04-18-2020 Goals Date Patient Goal Desired Activity /State Functional Status Date Assessment Result Facility 04-27-2023 Functional Status N/A [facility] 02-10-2023 Functional Status N/A [facility] 01-05-2023 Functional Status N/A [facility] 02-24-2022 Functional Status N/A [facility] Clinical Notes 11-04-2021 to 04-27-2023 Note Date & Type Note Facility 04-27-2023 Note [id number] [facility] 04-27-2023 Hospital Discharge instructions Patient Education 04/27/2023 11:01:06 [facility] - Cystoscopy Discharge Instructions (CUSTOM) Cystoscopy Voiding after the procedure: there may be some pain, burning, urgency, frequency and blood tinged urine following the procedure. These symptoms usually resolve within 2-5 days. Drink the amount of fluid it takes to keep the urine pink to yellow or clear in color. Drinking enough water and fluids will help to ease any discomfort after your procedure. If you are having problems that seem out of the ordinary, please call. If unable to contact your physician and you feel it is an emergency, go to the nearest emergency room or call 911 Diet you may resume your normal diet. Activity you may resume your normal activities Call if you have a fever over 100 degrees. Follow Up Care 03/29/2023 14:17:45 With:Lionel CARRINGTON Address: [facility] [address] [place] [address]- Business (1) When: Unknown Comments:Office will call to schedule follow up [facility] 04-27-2023 Note Custom Cystoscopy ? Voiding after the procedure: there may be some pain, burning, urgency, frequency and blood tinged urine following the procedure. These symptoms usually resolve within 2-5 days. Drink the amount of fluid it takes to keep the urine pink to yellow or clear in color. Drinking enough water and fluids will help to ease any discomfort after your procedure. ? If you are having problems that seem out of the ordinary, please call. ? If unable to contact your physician and you feel it is an emergency, go to the nearest emergency room or call 911 ? Diet ? you may resume your normal diet. ? Activity ? you may resume your normal activities ? Call if you have a fever over 100 degrees. [facility] 02-10-2023 Note Chief Complaint consultation for surveillance colonoscopy HPI Staff 73 year old male presents on consultation from Dr. Staley for surveillance colonoscopy and anemia. Labs completed 09/2022 with H/H 11 and 33. Denies abdominal or rectal pain. No rectal bleeding or change in bowel habits. Denies nausea or vomiting. No unexplained weight loss. Last colonoscopy completed 05/2014 with tubular adenoma. No known family history of colon cancer. History of Present Illness 73 yo male with h/o htn, COPD, cervical spondylolisthesis, h/o prostate and bladder cancers; referred for surveillance colonoscopy and anemia; h/o GERD, fairly well controlled with Protonix; no dysphagia or early satiety; no N/V; some breakthrough symptoms; some change in bms recently, with smaller, firmer stools, no blood or melena; last colonoscopy 2013 with removal of 2 small tubular adenomas; no previous EGD; on Diclofenac daily, no ASA; no SBE prophylaxis; abd operations significant for appendectomy and umbilical herniorrhaphy; no fmhx of GI malignancy or IBD; former smoker. Review of Systems PHQ Score Initial Depression Screen Score: 0 ROS - Provider Constitutional: no fever, no sweats, no weight loss. Eyes: yes glasses, no blurred vision, no visual loss. ENMT: no dentures, no hoarseness, no swallowing difficulties, no hearing loss, no ear infection(s), no nose bleeds. Cardiovascular: normal blood pressure, no chest pain, regular heartbeat, no heart murmur. Respiratory: no shortness of breath, no cough, no asthma, no wheezing. Gastrointestinal: no nausea, no vomiting, no diarrhea, no constipation, no blood in stool, yes change in bowel habits, no abdominal pain, no hepatitis. Genitourinary: no kidney stones, no urine infection, no dysuria. Musculoskeletal: no pain, no weakness. Skin: no changing moles, no rash, no skin lumps. Neurologic: no seizures, no epilepsy, no headache. Psychiatric: no emotional or psychiatric problem. Heme/Lymph: no bleeding problems, no anemia, no blood clots, no transfusions. Allergy/Immunologic: no swollen lymph nodes/glands, no IV drug abuse. Other: Additional ROS info: Except as noted in the above Review of Systems and in the History of Present Illness, all other systems have been reviewed and are negative or noncontributory. Physical Exam Vitals & Measurements HR: 70(Peripheral) RR: 16 BP: 124/80 HT: 74 in HT: 188 cm WT: 82.9 kg WT: 182.38 lb BMI: 23.46 HEENT: normal conjunctiva, sclera clear, no scleral icterus, EOM intact, PERRLA, oral mucosa moist without lesions. Neck: trachea midline, no mass, symmetric, no thyromegaly or nodules, no adenopathy Respiratory: lungs CTA, respirations non labored. Cardiovascular: regular rate and rhythm, no murmur, no pedal edema or varicosities. Gastrointestinal: soft, non distended, no tenderness, no masses, no palpable hernias, diastasis recti no, no hepatosplenomegaly; normal bs Lymphatic: no cervical adenopathy, no supraclavicular adenopathy. Musculoskeletal: normal gait, digits and nails without infection, nodes, cyanosis, clubbing. Skin: no rashes, no lesions, no ulcers, no subcutaneous nodules, induration. Psychiatric/Neuro: oriented to time, place, person, judgement normal, affect appropriate for age, insight intact, no focal deficits. Tests: labs reviewed, review of old records completed, Discussed surgical options, risks, and possible complications with patient. Assessment/Plan 1. Personal history of colonic polyps (Z86.010: Personal history of colonic polyps) plan EGD and colonoscopy under anesthesia, informed consent obtained. 2. Chronic GERD (K21.9: Gastro-esophageal reflux disease without esophagitis) see # 1 3. Change in bowel habits (R19.4: Change in bowel habit) see # 1 4. Iron deficiency anemia (D50.9: Iron deficiency anemia, unspecified) see # 1 Follow-up No qualifying data available Problem List/Past Medical History Ongoing Acute gouty arthritis Bladder cancer BMI 23.0-23.9, adult Change in bowel habits Chronic GERD Chronic obstructive pulmonary disease GERD (gastroesophageal reflux disease) History of kidney stones History of prostate cancer HTN (hypertension) Impotence Iron deficiency anemia Personal history of colonic polyps Spondylolisthesis of cervical region Historical Acid reflux Cancer of prostate Procedure/Surgical History TURBT - Transurethral resection of bladder tumor (02/17/2022), TURBT - Transurethral resection of bladder tumor (10/29/2021), Cystourethroscopy with dilation of urethral stricture (10/14/2021), Repair of umbilical hernia (06/22/2017), Arthroscopy of shoulder (05/20/2017), bilateral fifth partial metatarsal osteotomies and Silver Tailor's bunionectomies (08/29/2014), Radical perineal prostatectomy (08/15/2014), Colonoscopy (05/2014), Complete repair of rotator cuff (2010), Shoulder reconstruction (1998), Appendectomy (1964), Arthroplasty of the ankle, Arthroscopy of knee, Cervical vertebral fu (more content not included)... [facility] Comment on above: Result Comment: Elec tronically Signed By: LUIS NOBLE, Qamar Ernandez\Date and Time Signed: 02/10/23 15:05 EDT 01-05-2023 Note [id number]:127 [facility] 01-05-2023 Hospital Discharge instructions Patient Education 01/05/2023 10:55:52 EU - Cystoscopy Discharge Instructions (CUSTOM) Cystoscopy Voiding after the procedure: there may be some pain, burning, urgency, frequency and blood tinged urine following the procedure. These symptoms usually resolve within 2-5 days. Drink the amount of fluid it takes to keep the urine pink to yellow or clear in color. Drinking enough water and fluids will help to ease any discomfort after your procedure. If you are having problems that seem out of the ordinary, please call. If unable to contact your physician and you feel it is an emergency, go to the nearest emergency room or call 911 Diet you may resume your normal diet. Activity you may resume your normal activities Call if you have a fever over 100 degrees. Follow Up Care 12/16/2022 10:54:47 With:Lionel CARRINGTON Address: [facility] [address], [place] [address] Business (1) When: Unknown Comments:Office will call to schedule follow up [facility] 01-05-2023 Note Custom Cystoscopy ? Voiding after the procedure: there may be some pain, burning, urgency, frequency and blood tinged urine following the procedure. These symptoms usually resolve within 2-5 days. Drink the amount of fluid it takes to keep the urine pink to yellow or clear in color. Drinking enough water and fluids will help to ease any discomfort after your procedure. ? If you are having problems that seem out of the ordinary, please call. ? If unable to contact your physician and you feel it is an emergency, go to the nearest emergency room or call 911 ? Diet ? you may resume your normal diet. ? Activity ? you may resume your normal activities ? Call if you have a fever over 100 degrees. [facility] 12-03-2022 Evaluation note Encounter Date Diagnosis Assessment Notes Nov, Lumbar pain (ICD-10 - M54.50) I independently reviewed the plain x-ray of the cervical spine and the x-ray of the lumbar spine. The findings on and the report I agree with. This patient continues to have back and leg pain he has had 7 sessions of physical therapy with no benefit. He has also seen pain management who would like to look at an MRI and I agree having failed physical therapy I believe he was disengaged we are in need of an MRI of the lumbar spine without gadolinium for evaluation and treatment as soon as this is done I will be happy to reevaluate the patient. 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 05-04-2023 Evaluation note* Encounter Date Diagnosis Assessment Notes Treatment Notes Treatment Clinical Notes October, Cervical spondylosis (ICD-10 - M47.812) This patient has had a cervical fusion I reviewed his old x-rays independently showing a C7-T1 fusion with good hardware placement. This was in 2020 he is having a significant amount of neck pain and stiffness I would like a new dynamic x-ray of the neck to ensure there are no problems. 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 He has palpable leg lumbar sacroiliac pain he has lumbar pain. He also definitely has symptoms of neurogenic claudication consistent with lumbar stenosis. I think the patient is in need of physical therapy to see if this is of benefit I will see him back in 6 weeks.I will also obtain a 6 view x-ray of the lumbar spine October, Neurogenic claudication (ICD-10 - R29.818) [facility] 04-11-2023 Note [id number]:127[facility] 09-29-2022 NoteCustom Cystoscopy ? Voiding after the procedure: there may be some pain, burning, urgency, frequency and blood tingedurine following the procedure. These symptoms usually resolve within 2-5 days. Drink the amount of fluid it takes to keep the urine pink to yellow or clear in color. Drinking enough water and fluids will help to ease any discomfort after your procedure. ? If you are having problems that seem out of the ordinary, please call. ? If unable to contact your physician and you feel it is an emergency, go to the nearest emergency room or call 911 ? Diet ? you may resume your normal diet. ? Activity ? you may resume your normal activities ? Call if you have a fever over 100 degrees.[facility] 09-21-2022 Hospital Discharge instructions Patient Education 09/21/2022 08:24:18 Cancer Screening for Men Cancer Screening for Men A cancer screening is a test or exam that checks for cancer. Your health care provider will recommend specific cancer screenings based on your age, personal history, and family history of cancer. Work with your health care provider to create a cancer screening schedule that protects your health. Why is cancer screening done? Cancer screening is done to look for cancer in the very early stages, before it spreads and becomesharder to treat and before you would start to notice symptoms. Finding cancer early improves the chances of successful treatment. It may save your life. Who should be screened for cancer? All men should be screened for colorectal cancer and skin cancer. Your health care provider may recommend screenings for other types of cancer if: You had cancer before. You have a family member with cancer. You have abnormal genes that could increase the risk of cancer. You have risk factors for certain cancers, such as smoking. When you should be screened for cancer depends on: Your age. Your medical history and your family's medical history. Certain lifestyle factors, such as smoking. Environmental exposure, such as to asbestos. What are some common cancer screenings? Lung cancer Lung cancer screening is done with a CT scan that looks for abnormal cells in the lungs. Discuss lung cancer screening with your health care provider if you are 55 74 years old and if any of the following apply to you: You currently smoke. You used to smoke heavily. You have a smoking history of 1 pack a day for 30 years or 2 packs a day for 15 years. You have quit smoking within the past 15 years. If you smoke heavily or if you used to smoke, you may need to be screened every year. Prostate cancer Prostate cancer screening is done with blood tests and an exam in which a health care provider usesa gloved finger to check prostate size (digital rectal exam). You may need to be screened for prostate cancer if: You have risk factors of prostate cancer, such as being or having a close family member with prostate cancer. You have inherited gene changes or a genetic condition, including BRCA1 or BRCA2 gene mutations or Ivey syndrome. You have symptoms of prostate cancer, such as problems urinating or erectile dysfunction. Prostate cancer screening for men with average risk may start at age 50. Men with risk factors may need to be screened earlier at age 40 45. Once you have been screened for prostate cancer, future screening may be recommended based on the results of your blood tests. Colorectal cancer All adults should have screening for colorectal cancer starting at age 50 and continuing until age 75. Your health care provider may recommend screening at age 45. You will have tests every 1 10 years, depending on your results and the type of screening test. If you have a family history of colon or rectal cancer or other risk factors, you may need to start having screenings earlier. Talk with your health care provider about which screening test is right for you and how often you should be screened. Colorectal cancer screening looks for cancer or for growths called polyps that often form before cancer starts. Tests to look for cancer or polyps include: Colonoscopy or flexible sigmoidoscopy. For these procedures, a flexible tube with a small camera isinserted into the rectum. CT colonography. This test uses X-rays and a contrast dye to check the colon for polyps. If a polypis found, you may need to have a colonoscopy so the polyp can be located and removed. Tests to look for cancer in the stool (feces) include: Guaiac-based fecal occult blood test (FOBT). This test detects blood in stool. It can be done at home with a kit. Fecal immunochemical test (FIT). This test detects blood in stool. For this test, you will need to collect stool samples at home. Stool DNA test. This test looks for blood in stool and any changes in DNA that can lead to colon cancer. For this test, you will need to collect a stool sample at home and send it to a lab. Skin cancer Skin cancer screening is done by checking the skin for unusual moles or spots and any changes in existing moles. Your health care provider should check your skin for signs of skin cancer at every physical exam. You should check your skin every month and tell your health care provider right away if anything looks unusual. Men with a asnwct-vonp-bqtsrw risk for skin cancer may want to see a electronic masking system operator (electroless plater) for an annual body check. Where to find more information National Cancer [place]: https://www.cancer.gov/about-cancer/screening Centers for Disease Control and Prevention: https://www.cdc.gov/cancer/dcpc/prevention/screening.htm [place] [employer]: https://www.cancer.org/latest-news/8-xuwntc-sirerftai-ojtjc-xir-hfy.html Contact a health care provider if: You have concerns about any signs or symptoms of cancer, such as: ?Moles that have an unusual shape or color. ?Changes in existing moles. ?A sore on your skin that does not heal. ?Blood in your urine or stool. ?Fatigue that does not go away. ?Frequent pain or cramping in your abdomen. ?Coughing or trouble breathing that does not go away. ?Coughing up blood. ?Losing weight without trying. ?Changes in urination habits. ?Painful urination or ejaculation. Summary Be aware of and watch for signs and symptoms of cancer, especially symptoms of lung cancer, prostate cancer, colorectal cancer, and skin cancer. Early detection of cancer with cancer screening may save your life. Talk with your health care provider about your specific cancer risks. Work together with your health care provider to create a cancer screening plan that is right for you. This information is not intended to replace advice given to you by your health care provider. Make sure you discuss any questions you have with your health care provider. Document Released: 03/04/2017 Document Revised: 02/24/2019 Document Reviewed: 03/04/2017 [employer] Patient Education 2020 [employer]. Follow Up Care 09/19/2021 11:05:08 With:DEVONTE NOBLE, Lionel Burgos, URL Address: [facility] [address] , [place] [address]- When: Unknown [facility] Note [id number]:127[facility] 07-07-2022 Hospital Discharge instructions Patient Education 07/07/2022 10:48:34 EU - Cystoscopy Discharge Instructions (CUSTOM) Cystoscopy Voiding after the procedure: there may be some pain, burning, urgency, frequency and blood tinged urine following the procedure. These symptoms usually resolve within 2-5 days. Drink the amount of fluid it takes to keep the urine pink to yellow or clear in color. Drinking enough water and fluids will help to ease any discomfort after your procedure. If you are having problems that seem out of the ordinary, please call. If unable to contact your physician and you feel it is an emergency, go to the nearest emergency room or call 911 Diet you may resume your normal diet. Activity you may resume your normal activities Call if you have a fever over 100 degrees. Follow Up Care 07/02/2022 14:04:56 With:Lionel CARRINGTON Address: [facility] [address] [place] [address]- Business (1) When: Unknown Comments:Office will call to schedule follow up [facility]01-17-2023 NoteCustom Cystoscopy ? Voiding after the procedure: there may be some pain, burning, urgency, frequency and blood tingedurine following the procedure. These symptoms usually resolve within 2-5 days. Drink the amount of fluid it takes to keep the urine pink to yellow or clear in color. Drinking enough water and fluids will help to ease any discomfort after your procedure. ? If you are having problems that seem out of the ordinary, please call. ? If unable to contact your physician and you feel it is an emergency, go to the nearest emergency room or call 911 ? Diet ? you may resume your normal diet. ? Activity ? you may resume your normal activities ? Call if you have a fever over 100 degrees.[facility] 02-24-2022 Hospital Discharge instructions Patient Education 02/24/2022 11:23:44 Cancer Screening for Men Cancer Screening for Men A cancer screening is a test or exam that checks for cancer. Your health care provider will recommend specific cancer screenings based on your age, personal history, and family history of cancer. Work with your health care provider to create a cancer screening schedule that protects your health. Why is cancer screening done? Cancer screening is done to look for cancer in the very early stages, before it spreads and becomesharder to treat and before you would start to notice symptoms. Finding cancer early improves the chances of successful treatment. It may save your life. Who should be screened for cancer? All men should be screened for colorectal cancer and skin cancer. Your health care provider may recommend screenings for other types of cancer if: You had cancer before. You have a family member with cancer. You have abnormal genes that could increase the risk of cancer. You have risk factors for certain cancers, such as smoking. When you should be screened for cancer depends on: Your age. Your medical history and your family's medical history. Certain lifestyle factors, such as smoking. Environmental exposure, such as to asbestos. What are some common cancer screenings? Lung cancer Lung cancer screening is done with a CT scan that looks for abnormal cells in the lungs. Discuss lung cancer screening with your health care provider if you are 55 74 years old and if any of the following apply to you: You currently smoke. You used to smoke heavily. You have a smoking history of 1 pack a day for 30 years or 2 packs a day for 15 years. You have quit smoking within the past 15 years. If you smoke heavily or if you used to smoke, you may need to be screened every year. Prostate cancer Prostate cancer screening is done with blood tests and an exam in which a health care provider usesa gloved finger to check prostate size (digital rectal exam). You may need to be screened for prostate cancer if: You have risk factors of prostate cancer, such as being or having a close family member with prostate cancer. You have inherited gene changes or a genetic condition, including BRCA1 or BRCA2 gene mutations or Ivey syndrome. You have symptoms of prostate cancer, such as problems urinating or erectile dysfunction. Prostate cancer screening for men with average risk may start at age 50. Men with risk factors may need to be screened earlier at age 40 45. Once you have been screened for prostate cancer, future screening may be recommended based on the results of your blood tests. Colorectal cancer All adults should have screening for colorectal cancer starting at age 50 and continuing until age 75. Your health care provider may recommend screening at age 45. You will have tests every 1 10 years, depending on your results and the type of screening test. If you have a family history of colon or rectal cancer or other risk factors, you may need to start having screenings earlier. Talk with your health care provider about which screening test is right for you and how often you should be screened. Colorectal cancer screening looks for cancer or for growths called polyps that often form before cancer starts. Tests to look for cancer or polyps include: Colonoscopy or flexible sigmoidoscopy. For these procedures, a flexible tube with a small camera isinserted into the rectum. CT colonography. This test uses X-rays and a contrast dye to check the colon for polyps. If a polypis found, you may need to have a colonoscopy so the polyp can be located and removed. Tests to look for cancer in the stool (feces) include: Guaiac-based fecal occult blood test (FOBT). This test detects blood in stool. It can be done at home with a kit. Fecal immunochemical test (FIT). This test detects blood in stool. For this test, you will need to collect stool samples at home. Stool DNA test. This test looks for blood in stool and any changes in DNA that can lead to colon cancer. For this test, you will need to collect a stool sample at home and send it to a lab. Skin cancer Skin cancer screening is done by checking the skin for unusual moles or spots and any changes in existing moles. Your health care provider should check your skin for signs of skin cancer at every physical exam. You should check your skin every month and tell your health care provider right away if anything looks unusual. Men with a qaajit-qeqs-qqmpxc risk for skin cancer may want to see a electronic masking system operator (electroless plater) for an annual body check. Where to find more information [place] Cancer [place]: https://www.cancer.gov/about-cancer/screening Centers for Disease Control and Prevention: https://www.cdc.gov/cancer/dcpc/prevention/screening.htm [place] [employer]: https://www.cancer.org/latest-news/0-vhojlx-bsyfvomco-gqsuz-rnl-xip.html Contact a health care provider if: You have concerns about any signs or symptoms of cancer, such as: ?Moles that have an unusual shape or color. ?Changes in existing moles. ?A sore on your skin that does not heal. ?Blood in your urine or stool. ?Fatigue that does not go away. ?Frequent pain or cramping in your abdomen. ?Coughing or trouble breathing that does not go away. ?Coughing up blood. ?Losing weight without trying. ?Changes in urination habits. ?Painful urination or ejaculation. Summary Be aware of and watch for signs and symptoms of cancer, especially symptoms of lung cancer, prostate cancer, colorectal cancer, and skin cancer. Early detection of cancer with cancer screening may save your life. Talk with your health care provider about your specific cancer risks. Work together with your health care provider to create a cancer screening plan that is right for you. This information is not intended to replace advice given to you by your health care provider. Make sure you discuss any questions you have with your health care provider. Document Released: 03/04/2017 Document Revised: 02/24/2019 Document Reviewed: 03/04/2017 [employer] Patient Education 2020 [employer] Follow Up Care 02/05/2022 13:48:40 With:DEVONTE NOBLE, Lionel Burgos, [place] Address: [facility] [address] , [place] [address]- [phone] When: Unknown [facility] 05-24-2022 Hospital Discharge instructions Patient Education 11/11/2021 09:47:46 EU - Cystoscopy Discharge Instructions (CUSTOM) Cystoscopy Voiding after the procedure: there may be some pain, burning, urgency, frequency and blood tinged urine following the procedure. These symptoms usually resolve within 2-5 days. Drink the amount of fluid it takes to keep the urine pink to yellow or clear in color. Drinking enough water and fluids will help to ease any discomfort after your procedure. If you are having problems that seem out of the ordinary, please call. If unable to contact your physician and you feel it is an emergency, go to the nearest emergency room or call 911 Diet you may resume your normal diet. Activity you may resume your normal activities Call if you have a fever over 100 degrees. Follow Up Care 11/10/2021 13:35:37 With:Lionel CARRINGTON Address: [facility] [address] [place] [address] [facility] (1) When: Unknown Comments:Keep scheduled appointment [facility]05-17-2022 Hospital Discharge instructions Patient Education 11/04/2021 14:11:16 Prostate Cancer Prostate Cancer The prostate is a walnut-sized gland that is involved in the production of semen. It is located below a man's bladder, in front of the rectum. Prostate cancer is the abnormal growth of cells in the prostate gland. What are the causes? The exact cause of this condition is not known. What increases the risk? This condition is more likely to develop in men who: Are older than age 65. Are -[place]. Are obese. Have a family history of prostate cancer. Have a family history of breast cancer. What are the signs or symptoms? Symptoms of this condition include: A need to urinate often. Weak or interrupted flow of urine. Trouble starting or stopping urination. Inability to urinate. Pain or burning during urination. Painful ejaculation. Blood in urine or semen. Persistent pain or discomfort in the lower back, lower abdomen, hips, or upper thighs. Trouble getting an erection. Trouble emptying the bladder all the way. How is this diagnosed? This condition can be diagnosed with: A digital rectal exam. For this exam, a health care provider inserts a gloved finger into the rectum to feel the prostate gland. A blood test called a prostate-specific antigen (PSA) test. An imaging test called transrectal ultrasonography. A procedure in which a sample of tissue is taken from the prostate and examined under a microscope (prostate biopsy). Once the condition is diagnosed, tests will be done to determine how far the cancer has spread. This is called staging the cancer. Staging may involve imaging tests, such as: A bone scan. A CT scan. A PET scan. An MRI. The stages of prostate cancer are as follows: Stage I. At this stage, the cancer is found in the prostate only. The cancer is not visible on imaging tests and it is usually found by accident, such as during a prostate surgery. Stage II. At this stage, the cancer is more advanced than it is in stage I, but the cancer has not spread outside the prostate. Stage III. At this stage, the cancer has spread beyond the outer layer of the prostate to nearby tissues. The cancer may be found in the seminal vesicles, which are near the bladder and the prostate. Stage IV. At this stage, the cancer has spread other parts of the body, such as the lymph nodes, bones, bladder, rectum, liver, or lungs. How is this treated? Treatment for this condition depends on several factors, including the stage of the cancer, your age, personal preferences, and your overall health. Talk with your health care provider about treatment options that are recommended for you. Common treatments include: Observation for early stage prostate cancer (active surveillance). This involves having exams, blood tests, and in some cases, more biopsies. For some men, this is the only treatment needed. Surgery. Types of surgeries include: ?Open surgery. In this surgery, a larger incision is made to remove the prostate. ?A laparoscopic prostatectomy. This is a surgery to remove the prostate and lymph nodes through several, small incisions. It is often referred to as a minimally invasive surgery. ?A robotic prostatectomy. This is a surgery to remove the prostate and lymph nodes with the help ofa robotic arm that is controlled by a computer. ?Orchiectomy. This is a surgery to remove the testicles. ?Cryosurgery. This is a surgery to freeze and destroy cancer cells. Radiation treatment. Types of radiation treatment include: ?External beam radiation. This type aims beams of radiation from outside the body at the prostate to destroy cancerous cells. ?Brachytherapy. This type uses radioactive needles, seeds, wires, or tubes that are implanted into the prostate gland. Like external beam radiation, brachytherapy destroys cancerous cells. An advantage is that this type of radiation limits the damage to surrounding tissue and has fewer side effects. High-intensity, focused ultrasonography. This treatment destroys cancer cells by delivering high-energy ultrasound waves to the cancerous cells. Chemotherapy medicines. This treatment kills cancer cells or stops them from multiplying. Hormone treatment. This treatment involves taking medicines that act on one of the male hormones (testosterone): ?By stopping your body from producing testosterone. ?By blocking testosterone from reaching cancer cells. Follow these instructions at home: Take oqix-xab-zobdldf and prescription medicines only as told by your health care provider. Maintain a healthy diet. Get plenty of sleep. Consider joining a support group for men who have prostate cancer. Meeting with a support group mayhelp you learn to cope with the stress of having cancer. Keep all follow-up visits as told by your health care provider. This is important. If you have to go to the hospital, notify your cancer specialist (oncologist). Treatment for prostate cancer may affect sexual function. Continue to have intimate moments with your partner. This may include touching, holding, hugging, and caressing. Contact a health care provider if: You have trouble urinating. You have blood in your urine. You have pain in your hips, back, or chest. Get help right away if: You have weakness or numbness in your legs. You cannot control urination or your bowel movements (incontinence). You have trouble breathing. You have sudden chest pain. You have chills or a fever. Summary The prostate is a walnut-sized gland that is involved in the production of semen. It is located below a man's bladder, in front of the rectum. Prostate cancer is the abnormal growth of cells in the prostate gland. Treatment for this condition depends on several factors, including the stage of the cancer, your age, personal preferences, and your overall health. Talk with your health care provider about treatment options that are recommended for you. Consider joining a support group for men who have prostate cancer. Meeting with a support group mayhelp you learn to cope with the stress of having cancer. This information is not intended to replace advice given to you by your health care provider. Make sure you discuss any questions you have with your health care provider. Document Released: 06/07/2006 Document Revised: 05/20/2018 Document Reviewed: 02/15/2017 [employer] Patient Education 2020 [employer]. Follow Up Care 10/14/2021 11:26:04 With:Lionel CARRINGTON MD, URL Address: [facility] [address] , [place] [address]- When: Unknown [facility] evaluation + Plan note Future Appointments Appointment Date:09/21/2022 09:45:00 AM Scheduled Provider:[facility]ion[facility]INGTON [facility] Office Visit [facility] evaluation + Plan note Future Appointments Appointment Date:03/09/2022 09:00:00 AM Scheduled [facility] Nurse Visit Appointment Date:04/15/2022 09:00:00 AM Scheduled Provider: Location:[facility] Appointment Type:URO Nurse Visit Appointment Date:09/21/2022 09:45:00 AM Scheduled Provider:Lionel CARRINGTON MD Location:[facility] Appointment Type:URO Office Visit [facility] Evaluation + Plan note Future Appointments Appointment Date:03/09/2022 09:00:00 AM Scheduled Provider: Location:[facility] Appointment Type:URO Nurse Visit Appointment Date:04/15/2022 09:00:00 AM Scheduled Provider: Location:[facility] Appointment Type:URO Nurse Visit Appointment Date:09/21/2022 09:45:00 AM Scheduled Provider:Lionel CARRINGTON MD Location:[facility] Appointment Type:URO Office Visit Diagnostic Tests Pending * [facility]ments Appointment Date:04/15/2022 09:00:00 AM Scheduled Provider: Location:[facility] Appointment Type:URO Nurse Visit Appointment Date:09/21/2022 09:45:00 AM Scheduled Provider:Lionel CARRINGTON MD Location:[facility] Appointment Type:URO Office Visit [facility] evaluation + Plan note Future Appointments Appointment Date:07/20/2022 10:00:00 AM Scheduled Provider: Location:[facility] Appointment Type:URO Nurse Visit Appointment Date:08/17/2022 10:00:00 AM Scheduled Provider: Location:[facility] Appointment Type:URO Nurse Visit Appointment Date:09/21/2022 09:45:00 AM Scheduled Provider:Lionel CARRINGTON MD Location:[facility] Appointment Type:URO Office Visit Diagnostic Tests Pending * UroVysion FISH ([facility]) [facility] App[facility]ments Appointment Date:08/17/2022 10:00:00 AM Scheduled Provider: Location:[facility] Appointment Type:URO Nurse Visit Appointment Date:09/21/2022 09:45:00 AM Scheduled Provider:Lionel CARRINGTON MD Location:[facility] Appointment Type:URO Office Visit [facility] Evaluation + Plan note Future Appointments Appointment Date:09/22/2022 02:00:00 PM Scheduled Provider: Location:[facility] Appointment Type:Urology CALL PAT FT Appointment Date:09/29/2022 11:15:00 AM Scheduled Provider: Location:[facility] Appointment Type:Urology FT [facility] evaluation + Plan note Future Appointments Appointment Date:09/22/2022 02:00:00 PM Scheduled Provider: Location:[facility] Appointment Type:Urology CALL PAT FT Appointment Date:09/29/2022 11:15:00 AM Scheduled Provider: Location:[facility] Appointment Type:Urology FT Diagnostic Tests Pending * Urine Cytology ([facility]) 09/21/[address] [facility] [address] [facility] evaluation + Plan note Future Appointments Appointment Date:10/04/2023 10:15:00 AM Scheduled Provider:Lionel CARRINGTON MD Location:[facility] Appointment Type:URO Office Visit Diagnostic Tests Pending * UroVysion Fish and Urine Cyto ([facility]) [facility]ments Appointment Date:10/04/2023 10:15:00 AM Scheduled Provider:Lionel CARRINGTON MD Location:[facility] Appointment Type:URO Office Visit General [facility] Evaluation + Plan note Future Appointments Appointment Date:10/04/2023 10:15:00 AM Scheduled Provider:Lionel CARRINGTON MD Location:[facility] Appointment Type:URO Office Visit Diagnostic Tests Pending * UroVysion Fish and Urine Cyto ([facility]) [facility] assessment information available [facility] Work Phone: History general Narrative - Reported* Type Description Date Medical History HTN Medical History CANCER Medical History pneumonia Medical History prostate cancer Surgical History 2 LEFT ANKLE RECONSTRUCTION Surgical History Procedure:Lt shoulde r ORIF-screw;Disease:Lt shoulder degeneration 1997 Surgical History LEFT ROTATOR CUFF Surgical History Procedure:Appendectomy;Disease: 1965 Surgical History Procedure:Arthroscopy Knee;Dise ase: 2000 Surgical History RIGHT SHOULDER Surgical History LEFT SHOULDER Surgical History Procedure:Arthroscopy Ankle;Dis ease: Surgical History HERNIA Surgical History Procedure:right shou lder arthroscopy, debridement , acromioplasty,mini open supraspinatus tendontear;Disease: Surgical History Bilateral tailors bunion surger y 2014 Surgical History PROSTECTOMY Surgical History APPENDECTOMY Surgical History Right toe 4 shortened-partial e xcision of bone 2009 Surgical History prostatectomy Surgical History RIGHT KNEE SCOPE Surgical History L shoulder NAE -[facility] 2016 Hospitalization History FLU X2-3 DAYS Hospitalization History see surg. hx. [facility] Other Hospital course Narrative No data available for this section [facility] Hospital Discharge instructions No data available for this section [facility] progress note No data available for this section [facility] Chief Complaint and Reason for Visit Chief Complaint Bladder Tumors, Rodrick s Hematuria Bladder Tumors, Gross Hematuria Chief Complaint Bladder Tumors, Rodrick s Hematuria Bladder Tumors, Gross Hematuria Bladder Tumors, Gross Hematuria Chief Complaint Bladder Cancer and T umor Bladder Cancer and Tumor Bladder Cancer and Tumor Chief Complaint M54.50 Family History No Family History Records Found Relationship Condition Age at Onset Recorded Date/T ashlyn father Diabetes mellitus Unknown Hypertension Unknown Not Specified Unknown sister Calculus of kidney Unknown Advance Directives No Advanced Directives Records Found Advance Directive Response Recorded Date/ Time Advance Directives No July 2:58pm Reason for Referral Reason evaluate and treat f or neck and back pain Diagnosis 1 Cervical spondylosis (M47.812) Referral Organization [facility] Referring Provider First Name Zoran Referring Provider Last Name Scott Referring Provider Specialty Neurologica l Surgery Referred Organization [facility] Scheduling Referred Address [address], [place],[address] Referred Provider Specialty Physical The rapist Referral Priority Routine Reason evaluate and tr eat for neck and back pain Diagnosis 1 Cervical spondylosis (M47.812) Diagnosis 2 Low back pain, unspe cified (M54.50) Referral Organization [facility] Referring Provider First Name Zoran Referring Provider Last Name Scott Referring Provider Specialty Neurologica l Surgery Referred Organization [facility] Referred Provider Raoul Soriano Referred Address [address], [place],[address] Referred Provider Specialty Pain Medicin e Referral Priority Routine General Notes Fore, Meron M 023 08:08:21 AM >Received today and waiting for office notes to be locked before sending referral Summary Purpose Additional Source Comments Care Teams (unrecognized sec tion and content) Team Status: Inactive Member Role Status Dates Yolande Staley MD Primary Care Provider Active Lionel Carrington MD Attending Provider Active Team Status: Active Member Role Status Dates Yolande Staley MD Primary Care Provider Active Team Status: Inactive Member Role Status Dates Yolande Staley MD Primary Care Provider Active Zoran Chavez MD Attending Provider Active Goals (unrecognized section and content) Goals may be documented in a n alternate sectionGoals may be documented in an alternate section No data available for this section No data available for this section No data available for this section No data available for this section No data available for this section No data available for this section No data available for this section No data available for this section No data available for this section No data available for this section No data available for this section No data available for this section No data available for this sectionNo InformationNo Information No data available for this sectionGoals may be documented in an alternate section No data available for this section No data available for this section REASON FOR VISIT (unrecogniz ed section and content) PREVIOUS DPE PATIENT INCREAS ED PAINfollow up neck and back pain/pain management and PT (unrecognized sect ion and content) No Status Records FoundNo Status Records FoundNo Status Records FoundNo Status Records Found INFORMATION SOURCE (unrecogn ized section and content) DATE CREATED AUTHOR 11/27/2022 [facility] DATE CREATED AUTHOR AUTHOR'S ORGANIZ ATION 01/02/2023 [facility] DATE CREATED AUTHOR AUTHOR'S ORGANIZ ATION 02/09/2023 [facility] DATE CREATED AUTHOR AUTHOR'S ORGANIZ ATION 06/28/2023 [facility] FOR RECORDS PERTAINING TO PATIENTS WHO ARE OR HAVE BEEN ENROLLED IN A CHEMICAL DEPENDENCY/SUBSTANCEABUSE PROGRAM, SOME INFORMATION MAY BE OMITTED. This clinical summary was aggregated from multiple sources. Caution should be exercised in using it in the provision of clinical care. This summary normalizes information from multiple sources, and as a consequence, information in this document may materially change the coding, format and clinical context of patient data. In addition, data may be omitted in some cases. CLINICAL DECISIONS SHOULD BE BASED ON THE PRIMARY CLINICAL RECORDS. [employer] provides no warranty or guarantee of the accuracy or completeness of information in this document.
--- OUTSIDE RECORDS SUMMARY | 2023-07-19 09:33 | XMS_ITS | CCD ---
Author Name Unknown Address [address] [place] [address] Organization [facility] Care Team Providers Care Supervisor [employer] Name Role Phone MD Yolande Staley Primary Care Provider [phone] MD Lionel Carrington Attending Provider Yolande Staley Primary Care Physician Leidy Plummer Unavailable Unavailable MD Yolande Staley Primary Care Provider [phone] MD Lionel Carrington Attending Provider [phone] Zoran Chavez Unavailable SHARON, DR VILLEGAS Admitting [...] ., DR LANIER Admvidya Unavailable WEST, DR SOOCRRO [employer] Unavailable CARRINGTON ., DR FLOWERS [...] ., DR LANIER Primary Care Unavailable Hoy, Yolande M Primary Care Unavailable Zoran Chavez Admitting Unavailable Zoran Chavez Attending Unavailable Carrington, Lionel Attending Unavailable Yolande Staley Primary Care Unavailable Carrington, Lionel Admitting Unavailable Carrington, Lionel Attending Unavailable Yolande Staley Primary Care Unavailable Carrington, Lionel Admitting Unavailable Carrington, Lionel Attending Unavailable Yolande Staley Primary Care Unavailable Carrington, Lionel Admitting Unavailable MD Yolande Staley Primary Care Provider [phone] MD Zoran Chavez Attending Provider [phone] Syeda NOBLE, Tamiko Kilgore Attending Unavailable Syeda [...] Drug Allergy 04-11-20 20 Itching, Itching agitated [facility] (20 sources) Codeine; 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: [Codeine] Drug Allergy 06-04-20 14 rash [facility] (7 sources) oxyCODONE; 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: [oxycodone] Drug Allergy 04-11-20 20 Itching, agitated [facility] (16 sources) Acetaminophen / oxyCODONE; 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: [acetaminophen-oxyc odone] Drug Allergy aggitation [facility] James Comment on above: pt states this does not work for pt, pt is not allergic to vicodin (2 sources) cyclobenzaprine Drug Allergy itching [facility] [employer] Other (2 sources) HYDROcodone Drug Allergy anxiety [facility] [employer] [employer] Other (2 sources) tiZANidine Drug Allergy hives [facility] [employer] Other (3 sources) Acetaminophen / HYDROcodone; 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: [Vicodin] Drug Allergy [facility] Repository (2 sources) Acetaminophen / oxyCODONE Drug Allergy [facility] Repository (1 source) atorvastatin Drug Allergy [facility] Repository (2 sources) tiZANidine Drug Allergy [facility] Repository (1 source) Acetaminophen / oxyCODONE; 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: [Percocet 5/325] Drug Allergy [facility] Repository Medications Current Medications Medication Drug Class(es) [...] 12:00am Start: 09-19-2021 take 2 tablets by [facility] twice daily carvedilol 6.25 mg Tab 12.5 [...] 07, 2019 1:00am April 19, 2020 8:04am Oqazwqbknhs-Xoheoivxf-Ilhufa er (6 sources) Anticholinergic, Corticosteroid, beta2-Adrenergic Agonist Start: 08-07-2019 Vloxtucueon-Flnhbrvro-Qcbnka er (Trelegy Ellipta) 100-62.5-25 mcg Blister With [...] 02/03/23 Status: Ordered take 1 tablet by barry th every twenty-four hours Pantoprazole Sodium 40 [...] procedure, # 2 tab(s), Refills(s) 0, Pharmacy: [facility]/pharmacy #[id number], 170, cm, 01/20/23 10:45:00 EDT, Height/Length Dosing, 83.5, kg, 01/20/23 10:45:00 EDT, Weight Dosing Start Date: 01/20/23 Status: Ordered Start: 12-31-2022 take 1 tablet by barry th once daily Cipro 500 mg Tab 500 mg = 1 tab(s), Oral, Daily, Take 1 tablet the day before the procedure and 1 tablet after the procedure, # 6 tab(s), Refills(s) 0, Pharmacy: [facility]/pharmacy #[id number], 170, cm, 09/22/22 12:23:00 EDT, Height/Length Dosing, 78, kg, 02/24/22 10:53:00 EDT, W... Start Date: 12/31/22 Status: Ordered Start: 07-02-2022 take 1 tablet by barry once daily Cipro 500 mg Tab 500 mg = 1 tab(s), Oral, Daily, Take 1 tablet the day before the procedure and 1 tablet after the procedure, # 6 tab(s), Refills(s) 0, Pharmacy: [facility]/pharmacy #[id number], 170, cm, 02/24/22 10:53:00 EDT, Height/Length Dosing, 78, kg, 02/24/22 10:53:00 EDT, W... Start Date: 07/02/22 Status: Ordered Start: 11-05-2021 take 1 tablet by barry once daily Cipro 500 mg Tab 500 mg = 1 tab(s), Oral, Daily, Take 1 tab at nighttime prior to the day of procedure, then 1 tab right after the procedure, # 2 tab(s), Refills(s) 0, Pharmacy: [facility]/pharmacy #[id number], 170, cm, 11/05/21 11:37:00 EDT, Height/Length [...] procedure, # 2 cap(s), Refills(s) 0, Pharmacy: [facility]/pharmacy #[id number], 188, cm, 02/10/23 14:22:00 EDT, Height/Length [...] period., # 30 tab(s), Refills(s) 3, Pharmacy: [id number], 170, cm, 02/24/22 10:53:00 EDT, Height/Length Dosing, 78, kg, 02/24/22 10:53:00 EDT, Weight Dosing Start Date: 07/05/22 Status: Ordered Start: 09-19-2021 sildenafil 100 mg Tab 100 mg = 1 tab(s), Oral, Daily, Take 1 pill 30 minutes prior to sexual relations, # 30 tab(s), Refills(s) 3, Pharmacy: [facility], 170, cm, 09/19/21 10:16:00 EDT, [...] a surgery d one radical prostectomy at [facility] Cancer of prostate (20 sources) Personal history [...] region] Episodic Other aftercare (1 source) Other jail (current) drug therapy; 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: [OTH CLEAT THROWER CURRENT DRUG THERAPY] Onset: 3 Episodic Other [...] ity Reminderson 06-28-2023 Reminders - From: Loretta Simons [facility]; Cc: Loretta Simons; Sent: 06/28/2023 10:52:09 EST Show up: 09/20/2023 10:52:00 EDT Subject: Cysto/6 mo Due Date/Time: 10/11/2023 10:52:00 EDT Reminder/Recall Patient is due in October 2023 for 6 month cysto/fish/cytol, PSA (bt ck) Normal [facility] UroVysion Fish and Urine Cyt o ([facility])on 05-26-2023 UVFISH & UC Revision Information Invalid Interpretation Code [facility] Comment on above: Result Comment: Jimbo ection Reason -[ To Nur, 05/26/23 - 14:52 ] Corrected report issued to include PMS/PWS. The diagnosis remains unchanged. Correction Notes - Performed By: #### 1 [id number] #### [facility] [address] [place] [address] Consent for Procedure/Surger yon 04-27-2023 Consent for Procedure/Surgery [id number]#1.0 0TIFF Normal [facility] Consent for Treatmenton Consent for Treatment [id number]#1.0 0TIFF Normal [facility] IntraOperative Documentson 1 06-27-2022 IntraOperative Documents [id number]#1.0 0TIFF Normal [facility] Main OR Intraoperative Recor don 04-27-2023 Main OR Intraoperative Record IntraOp Document Type FTURO Summary Primary Physician: Lionel CARRINGTON MD Finalized Date/Time: 04/27/23 11:02:57 Pt. Name: MARY DIAZ/Sex: 1950 Male Med Rec #: [id number] Physician: Lionel CARRINGTON MD Financial #: [id number] Pt. Type: O Room/Bed: / Admit/Disch: 04/27/23 [...] Nanci Luna Role Performed Surgeon - Primary Corporate Director Talent Assessment - Primary Scrub - Primary Time In [...] PAULINA Rene RN, Ruthann 04/27/23 11:02 Normal [facility] Main OR Preoperative Recordo n 04-27-2023 Main OR Preoperative Record Holding Area Document Type FTURO Summary Primary Physician: Lionel CARRINGTON MD Finalized Date/Time: 04/27/23 10:26:02 Pt. Name: MARY DAIZ/Sex: 1950 Male Med Rec #: [id number] Physician: Lionel CARRINGTON MD Financial #: [id number] Pt. Type: O Room/Bed: / Admit/Disch: 04/27/23 [...] Complaints of Pain: No Skin Integrity Intact, Emlyn, Warm, & Dry Vitals - EU Blood Pressure 167/96 Pulse 76 bpm Respirations 20 br/min SPO2 97 % Last Modified By: Avani Costello LPN 04/27/23 10:25:57 General Comments: Temp 36.7 Finalized By: Avani Costello LPN Document Signatures Signed By: Avani Costello LPN 04/27/23 10:26 Normal [facility] Operative Reporton Operative Report Patient: MARY DIAZ [...] a surveillance cystoscopy in 6 months.. Normal [facility] Comment on above: Result Comment: Elec tronically Signed By: DEVONTE NOBLE, Lionel Ernandez\Date and Time Signed: 04/27/23 11:04 EST Outpatient Surgery Discharge Instructionon 04-27-2023 Outpatient Surgery Discharge Instruction [id number]#1.0 0TIFF Normal [facility] Reminderson 04-27-2023 Reminders - From: Loretta Simons To: EU - Recalls [facility]; Cc: Loretta Simons; Sent: 03/05/2023 14:06:16 EDT Show up: 07/22/2023 14:06:00 EST Subject: Cysto/fish/cytol, Due Date/Time: 08/09/2023 14:06:00 EST Reminder/Recall Patient is due in August 2023 for 4 month cysto/fish/cytol (bt ck), ? PSA Pt will be due in October 2023 for 6 month cysto Normal [facility] UroVysion Fish and Urine Cyt o ([facility])on 04-27-2023 [facility] Method of Extraction Voided Normal [facility] Comment on above: Performed By: #### 1 [id number] #### [facility] [address] [place] [address] [facility] Number of Jars 1 Invalid Interpretation Code [facility] Comment on above: Performed By: #### 1 [id number] #### [facility] [address] [place] [address] [facility] Specimen Urine Normal [facility] Comment on above: Performed By: #### 1 [id number] #### [facility] [address] [place] [address] [facility] Type of Service Technical Only Normal [facility] Comment on above: Performed By: #### 1 [id number] #### [facility] [address] [place] [address] Outside Colonoscopyon 2022 Outside Colonoscopy [id number]#1.0 0CD:127 [facility] Reminderson 03-16-2023 Reminders - From: Stephanie Fletcher LPN To: N - Clinical; Sent: 03/16/2023 07:57:36 EDT Show up: 02/08/2028 07:00:00 EDT Subject: colonoscopy recall Due Date/Time: 03/10/2028 07:00:00 EDT Reminder/Recall Patient due for surveillance colonoscopy 03/10/2028 due to history of colonic polyps. [facility] Reminderson 03-05-2023 Reminders - From: Loretta Simons [facility]: [facility]; Cc: Loretta Simons; Sent: 07/02/2022 14:10:41 EST Show up: 08/19/2022 14:10:00 EST Subject: cysto/fish/cytol Due Date/Time: 09/07/2022 14:10:00 EDT Reminder/Recall Pt is due in September 2022 for 3 month cysto/fish./cytol (bt ck) Patient scheduled for 09/29/22. He will be due in December 2022.LG Patient scheduled for 01/05/23. Pt will be due in Mar 2023.LG Patient sched for 4 month cysto 04/27/23 at [facility]. He will be due in August 2023.LG new thread [facility] Consent for Procedure/Surger yon 02-11-2023 Consent for Procedure/Surgery [id number] CD:127 [facility] Ambulatory Visit Summaryon 0 02-10-2023 Ambulatory Visit [...] 10:15 AM EDT With: DEVONTE NOBLE, Lionel Bugros Where: [facility] Lab Reportson 02-03-2023 Lab Reports [id number]#1.0 0CD:127 Normal [facility] Physician Referralon 023 Physician Referral [id number] 0CD:127 Normal [facility] UroVysion Fish and Urine Cyt o ([facility])on 02-03-2023 UVFISH & UC Revision Information Invalid Interpretation Code [facility] Comment on above: Result Comment: Jimbo ection Reason -[ To Nur, 02/03/23 - 12:32 ] Corrected report issued to update PMS/PWS. The diagnosis remains unchanged. Correction Notes - Performed By: #### 1 [id number] #### [facility] [address] [place] [address] Lab Reportson 01-29-2023 Lab Reports [id number] 0CD:127 Normal [facility] Operative Reporton Operative Report [id number]#1.0 0CD:127 Normal [facility] Ambulatory Visit Summaryon 0 01-20-2023 Ambulatory Visit [...] LUIS NOBLE, Qamar Burgos Where: General Surgery [facility] Normal [address] [place] [address] [place] [address]- \.br\ You Need to Schedule the Following Appointments\.b r\ Follow Up with DEVONTE NOBLE, Lionel Burgos, URL When: \.br\ Comments:\.br\ sched cysto\.br\ Where:\.br\ [facility] [address]\.br\ [place] [address]-\.br\ [phone]\.br\ Medications\.br \ What How Much When Instructions\.b r\ New ciprofloxacin (Cipro 500 mg Tab) 1 Tablets By Mouth Every day take one tab day before procedure and one tab after procedure Pickup at [facility]/pharmacy #[id number]\.br\ Unchanged sildenafil (sildenafil 100 mg Tab) 1 [...] questions or concerns \.br\ Pharmacy Information\.br \ [facility]/pharmacy #[id number]: [address], [place] [phone]\.br\ Allergies\.br\ Percocet 5/325\.br\ codeine (hives/rashes)\ .br\ Problems\.br\ [...] these instructions at home:\.br\ ? \.br\ Take yzsq-sdh-czuwkc r and prescription medicines only as told [...] to find more information\.br \ ? \.br\ [place] Cancer Society (ACS): cancer.org\.br\ ? \.br\ National Cancer Helen (NCI): cancer.gov\.br\ Contact a health care provider [...] based on the stage of your cancer.\.br\ [facility] Ambulatory Visit Summary MARY DIAZ :1950 Visit [...] [place] Normal [address] [place] [address]- \.br\ You Need to Schedule the Following Appointments\.b r\ Follow Up with DEVONTE NOBLE, Lionel Burgos, URL When: \.br\ Comments:\.br\ sched cysto\.br\ Where:\.br\ [facility] [address]br\ [place] [address].br\ [phone]\.br\ Medications\.br \ What How Much When Instructions\.b [...] these instructions at home:\.br\ ? \.br\ Take vyzi-oki-trbbfv r and prescription medicines only as told [...] to find more information\.br \ ? \.br\ [place] Cancer Society (ACS): cancer.org\.br\ ? \.br\ National Cancer Helen (NCI): cancer.gov\.br\ Contact a health care provider [...] to you by your health care pro [facility] Pathology Noteon 01-20-2023 Pathology Note [id number]#1.0 0CD:127 Normal [facility] Patient Educationon 01-21-20 23 Patient Education Oncology [...] Follow these instructions at home: ? Take bcml-ggz-flkeayk and prescription medicines only as told by [...] important. Where to find more information ? [place] Cancer Society (ACS): cancer.org ? National Cancer Helen (NCI): cancer.gov Contact a health care provider [...] wi (more content not included)... Normal [facility] Urology Office/Clinic Noteon 01-20-2023 Urology Office/Clinic [...] Urology [address], [place] [address] [phone] Additional Instructions: sched cysto Patient Education Bladder [...] Arthroplasty of th (more content not included)... [facility] Comment on above: Result Comment: Elec tronically Signed By: Lionel CARRINGTON MD\.br\Date and Time Signed: 01/20/23 11:40 EDT\.br\Electronically Co-Signed By: Lilo Zhou\.br\Date and Time Co-Signed: 01/20/23 11:37 EDT Lab Reportson 01-11-2023 Lab Reports [id number] 0CD:127 [facility] Consent for Procedure/Surger yon 01-05-2023 Consent for Procedure/Surgery [id number]#1. 00CD:127 [facility] Consent for Treatmenton 07- Consent for Treatment [id number]#1.0 0CD:127 [facility] IntraOperative Documentson 0 01-05-2023 IntraOperative Documents [id number]. 00CD:127 [facility] Main OR Intraoperative Recor don 01-05-2023 Main OR Intraoperative Record IntraOp Document Type FTURO Summary Primary Physician: Lionel CARRINGTON MD Finalized Date/Time: 01/05/23 10:57:53 Pt. Name: MARY DIAZ/Sex: 1950 Male Med Rec #: [id number] Physician: Lionel CARRINGTON MD Financial #: [id number] Pt. Type: O Room/Bed: / Admit/Disch: 01/05/23 [...] Zora Luna Role Performed Surgeon - Primary Corporate Director Talent Assessment - Primary Scrub - Primary Time In [...] PAULINA Rene RN, Ruthann 01/05/23 10:57 Normal [facility] Main OR Preoperative Recordo n 01-05-2023 Main OR Preoperative Record Holding Area Document Type FTURO Summary Primary Physician: Lionel CARRINGTON MD Finalized Date/Time: 01/05/23 10:43:08 Pt. Name: MARY DIAZ/Sex: 1950 Male Med Rec #: [id number] Physician: Lionel CARRINGTON MD Financial #: [id number] Pt. Type: O Room/Bed: / Admit/Disch: 01/05/23 [...] PAULINA Rene RN, Ruthann 01/05/23 10:43 Normal [facility] Operative Reporton Operative Report Patient: MARY DIAZ [...] tumor has developed in these areas.. Normal [facility] Comment on above: Result Comment: Elec tronically Signed By: DEVONTE NOBLE, Lionel Ernandez\Date and Time Signed: 01/05/23 10:59 EDT UroVysion Fish and Urine Cyt o ([facility])on 01-05-2023 [facility] Method of Extraction Bladder Wash Normal [facility] Comment on above: Performed By: #### 1 [id number] #### [facility] [address] [place] [address] [facility] Number of Jars 1 Invalid Interpretation Code [facility] Comment on above: Performed By: #### 1 [id number] #### [facility] [address] [place] [address] [facility] Specimen Urine Normal [facility] Comment on above: Performed By: #### 1 [id number] #### [facility] [address] [place] [address] [facility] Type of Service Technical Only Normal [facility] Comment on above: Performed By: #### 1 [id number] #### [facility] [address] [place] [address] MR lumbar spine wo conon MR lumbar spine wo [facility] Main [place] [id number] MRI Report Signed Patient: Mary Diaz MR#: [id number] : 1950 Acct:[id number] Age/Sex: 72 / M ADM Date: 01/01/23 Loc: MR Room: Type: [facility] Attending Dr: Zoran Chavez MD Copies [...] Jamaica Alas M.D.01/01/2023 2:48 PM Dictation Location: [place] [address] Transcribed By: [facility] 01/01/23 1448 Dictated By: Jamaica Alas II, MD 01/01/23 144 Signed By: 01/01/23 1448 [facility] - Clinical Noteon Retail - Clinical Note [id number] 0CD:127 Normal [facility] XR CSPINE MIN 4 VIEWSon 05-0 XR [...] by: ALLI CORTES Date: 2022-10-23 11:53 Normal [facility] XR LSPINE W_OBLS AND FLEX_EX Ton 10-23-2022 XR LSPINE W_OBLS AND FLEX_EXT EXAM: XR LSPINE W_OBLS AND FLEX_EXT HISTORY: Low back pain COMPARISON: None. TECHNIQUE: 2 views Findings/impression: Retrolisthesis of L2 over L3 by 4 mm. Multilevel endplate degenerative changes, disc disease, and anterior spurring. Calcified atherosclerotic disease of aorta. No acute fracture. Electronically authenticated by: JAMAICA GONZALEZ Date: 2022-10-23 13:18 Normal [facility] BNPon 10-06-2022 Natriuretic peptide B (Bld) [Mass/Vol] 844.0 pg/mL Normal <=900.0 [facility] Comment on above: Performed By: #### C VDTB #### [facility] [address] [place] [address] Dr. Johnna Dixon CBC AUTO DIFFon 10-06-2022 BASO # 0.0 103/ul Normal 0.0-0.1 [facility] Comment on above: Performed By: #### C BC #### [facility] [address] [place] [address] Dr. Johnna Dixon Basophils/100 WBC (Bld) 0.0 % Critically low 0.2-2.0 [facility] Comment on above: Performed By: #### C BC #### [facility] [address] [place] [address] Dr. Johnna Dixon EO # 0.0 103/ul Normal 0.0-0.7 [facility] Comment on above: Performed By: #### C BC #### [facility] [address] [place] [address] Dr. Johnna Dixon Eosinophils/100 WBC (Bld) 0.0 % Critically low 0.9-7.0 [facility] Comment on above: Performed By: #### C BC #### [facility] [address] [place] [address] Dr. Johnna Dixon Erythrocyte distribution width (RBC) [Ratio] 13.9 % Normal 11.0-15.0 [facility] Comment on above: Performed By: #### C BC #### [facility] [address] [place] [address] Dr. Johnna Dixon Hematocrit (Bld) [Volume fraction] 33.6 % Critically low 42.0-54.0 [facility] Comment on above: Performed By: #### C BC #### [facility] [address] [place] [address] Dr. Johnna Dixon Hemoglobin (Bld) [Mass/Vol] 11.1 g/dL Critically low 14.0-18.0 [facility] Comment on above: Performed By: #### C BC #### [facility] [address] [place] [address] Dr. Johnna Dixon IG # 0.03 10e3/ul Normal 0.00-0.03 [facility] Comment on above: Performed By: #### C BC #### [facility] [address] [place] [address] Dr. Johnna Dixon IG % 0.5 % Normal 0.0-0.5 [facility] Comment on above: Performed By: #### C BC #### [facility] [address] [place] [address] Dr. Johnna Dixon LYMPH # 0.7 103/ul Critically low 1.2-3.8 [facility] Comment on above: Performed By: #### C BC #### [facility] [address] [place] [address] Dr. Johnna Dixon Lymphocytes/100 WBC (Bld) 11.5 % Critically low 20.5-60.0 [facility] Comment on above: Performed By: #### C BC #### [facility] [address] [place] [address] Dr. Johnna Dixon MANUAL DIFF REQ NO Normal [facility] Comment on above: Performed By: #### C BC #### [facility] [address] [place] [address] Dr. Johnna Dixon MCH (RBC) [Entitic mass] 31.0 pg Normal 25.9-34.0 [facility] Comment on above: Performed By: #### C BC #### [facility] [address] [place] [address] Dr. Johnna Dixon MCHC (RBC) [Mass/Vol] 33.0 g/dL Normal 29.9-35.2 [facility] Comment on above: Performed By: #### C BC #### [facility] [address] [place] [address] Dr. Johnna Dixon MCV (RBC) [Entitic vol] 93.9 fL Normal 80.0-94.0 [facility] Comment on above: Performed By: #### C BC #### [facility] [address] [place] [address] Dr. Johnna Dixon MONO # 0.3 103/ul Normal 0.3-0.8 [facility] Comment on above: Performed By: #### C BC #### [facility] [address] [place] [address] Dr. Johnna Dixon Monocytes/100 WBC (Bld) 4.5 % Normal 1.7-12.0 [facility] Comment on above: Performed By: #### C BC #### [facility] [address] [place] [address] Dr. Johnna Dixon NEUT # 5.0 103/ul Normal 1.4-6.5 [facility] Comment on above: Performed By: #### C BC #### [facility] [address] [place] [address] Dr. Johnna Dixon Neutrophils/100 WBC (Bld) 83.5 % Critically high 43.0-75.0 [facility] Comment on above: Performed By: #### C BC #### [facility] [address] [place] [address] Dr. Johnna Dixon Platelet mean volume (Bld) [Entitic vol] 10.3 fL Normal 9.5-13.5 [facility] Comment on above: Performed By: #### C BC #### [facility] [address] [place] [address] Dr. Johnna Dixon PLT 184 103/ul Normal 150-450 [facility] [facility] Comment on above: Performed By: #### C BC #### [facility] [address] [place] [address] Dr. Johnna Dixon RBC 3.58 106/ul Critically low 4.70-6.10 [facility] Comment on above: Performed By: #### C BC #### [facility] [address] [place] [address] Dr. Johnna Dixon WBC 6.0 103/ul Normal 4.0-11.0 [facility] Comment on above: Performed By: #### C BC #### [facility] [address] [place] [address] Dr. Johnna Dixon PROF 14(COMP METB)on 023 Albumin [Mass/Vol] 2.7 g/dL Critically low 3.4-5.0 [facility] Comment on above: Performed By: #### C VDTBH #### [facility] [address] [address] [address] Johnna Dixon Albumin/Globulin [Mass ratio] 0.9 {ratio} Normal [facility] Comment on above: Performed By: #### C VDTBH #### [facility] [address] [address] [address] Johnna Dixon ALP [Catalytic activity/Vol] 32 U/L Critically low 46-116 [facility] Comment on above: Performed By: #### C VDTBH #### [facility] [address] [place] [address] Dr. Johnna Dixon ALT [Catalytic activity/Vol] 19 U/L Normal 16-63 [facility] Comment on above: Performed By: #### C VDTBH #### [facility] [address] [place] [address] Dr. Johnna Dixon Anion gap [Moles/Vol] 14.0 mmol/L Normal [facility] Comment on above: Performed By: #### C VDTBH #### [facility] [address] [place] [address] Dr. Johnna Dixon AST [Catalytic activity/Vol] 12 U/L Critically low 15-37 [facility] Comment on above: Performed By: #### C VDTBH #### [facility] [address] [place] [address] Dr. Johnna Dixon Bilirubin [Mass/Vol] 0.6 mg/dL Normal 0.2-1.0 [facility] Comment on above: Performed By: #### C VDTBH #### [facility] [address] [place] [address] Dr. Johnna Dixon Calcium [Mass/Vol] 8.3 mg/dL Critically low 8.5-10.1 [facility] Comment on above: Performed By: #### C VDTB #### [facility] [address] [address] [address] Johnna Dixon Chloride [Moles/Vol] 107 mmol/L Normal 98-107 [facility] Comment on above: Performed By: #### C VDTBH #### [facility] [address] [address] [address] Johnna Dixon CO2 [Moles/Vol] 24.9 mmol/L Normal 21.0-32.0 [facility] Comment on above: Performed By: #### C VDTBH #### [facility] [address] [address] [address] Johnna Dixon Creatinine [Mass/Vol] 1.20 mg/dL Normal 0.70-1.30 [facility] Comment on above: Performed By: #### C VDTBH #### [facility] [address] [place] [address] Dr. Johnna Dixon EGFR-AF GUYANESE >60 Normal >=60 [facility] Comment on above: Performed By: #### C VDTBH #### [facility] [address] [place] [address] Dr. Johnna Dixon EGFR-NON AF GUYANESE 60 mL/min/1.73m2 Normal >=60 [facility] Comment on above: Performed By: #### C VDTBH #### [facility] [address] [place] [address] Dr. Johnna Dixon Globulin (S) [Mass/Vol] 2.9 g/dL Normal [facility] Comment on above: Performed By: #### C VDTBH #### [facility] [address] [place] [address] Dr. Johnna Dixon Glucose [Mass/Vol] 153 mg/dL Critically high 74-106 T [facility] Comment on above: Performed By: #### C VDTBH #### [facility] [address] [place] [address] Dr. Johnna Dixon Potassium [Moles/Vol] 3.9 mmol/L Normal 3.5-5.1 [facility] Comment on above: Performed By: #### C VDTBH #### [facility] [address] [place] [address] Dr. Johnna Dixon Protein [Mass/Vol] 5.6 g/dL Critically low 6.4-8.2 [facility] Comment on above: Performed By: #### C VDTBH #### [facility] [address] [place] [address] Dr. Johnna Dixon Sodium [Moles/Vol] 142 mmol/L Normal 136-145 [facility] Comment on above: Performed By: #### C VDTBH #### [facility] [address] [place] [address] Dr. Johnna Dixon Urea nitrogen [Mass/Vol] 14.0 mg/dL Normal 7.0-18.0 [facility] Comment on above: Performed By: #### C VDTBH #### [facility] [address] [place] [address] Dr. Johnna Dixon Urea nitrogen/Creatinine [Mass ratio] 11.7 mg/mg Normal [facility] Comment on above: Performed By: #### C VDTBH #### [facility] [address] [place] [address] Dr. Johnna Dixon CBC AUTO DIFFon 10-05-2022 BASO # 0.0 103/ul Normal 0.0-0.1 [facility] Comment on above: Performed By: #### S PUTGS #### [facility] [address] [place] [address] Dr. Johnna Dixon Basophils/100 WBC (Bld) 0.2 % Normal 0.2-2.0 [facility] Comment on above: Performed By: #### S PUTGS #### [facility] [address] [place] [address] Dr. Johnna Dixon EO # 0.0 103/ul Normal 0.0-0.7 [facility] Comment on above: Performed By: #### S PUTGS #### [facility] [address] [place] [address] Dr. Johnna Dixon Eosinophils/100 WBC (Bld) 0.2 % Critically low 0.9-7.0 [facility] Comment on above: Performed By: #### S PUTGS #### [facility] [address] [place] [address] Dr. Johnna Dixon Erythrocyte distribution width (RBC) [Ratio] 14.1 % Normal 11.0-15.0 [facility] Comment on above: Performed By: #### S PUTGS #### [facility] [address] [place] [address] Dr. Johnna Dixon Hematocrit (Bld) [Volume fraction] 39.9 % Critically low 42.0-54.0 [facility] Comment on above: Performed By: #### S PUTGS #### [facility] [address] [place] [address] Dr. Johnna Dixon Hemoglobin (Bld) [Mass/Vol] 12.8 g/dL Critically low 14.0-18.0 [facility] Comment on above: Performed By: #### S PUTGS #### [facility] [address] [place] [address] Dr. Johnna Dixon IG # 0.01 10e3/ul Normal 0.00-0.03 [facility] Comment on above: Performed By: #### S PUTGS #### [facility] [address] [place] [address] Dr. Johnna Dixon IG % 0.2 % Normal 0.0-0.5 [facility] Comment on above: Performed By: #### S PUTGS #### [facility] [address] [place] [address] Dr. Johnna Dixon LYMPH # 0.7 103/ul Critically low 1.2-3.8 [facility] Comment on above: Performed By: #### S PUTGS #### [facility] [address] [place] [address] Dr. Johnna Dixon Lymphocytes/100 WBC (Bld) 14.3 % Critically low 20.5-60.0 [facility] Comment on above: Performed By: #### S PUTGS #### [facility] [address] [place] [address] Dr. Johnna Dixon MANUAL DIFF REQ NO Normal [facility] Comment on above: Performed By: #### S PUTGS #### [facility] [address] [address] [address] Johnna Dixon MCH (RBC) [Entitic mass] 30.7 pg Normal 25.9-34.0 [facility] Comment on above: Performed By: #### S PUTGS #### [facility] [address] [address] [address] Johnna Dixon MCHC (RBC) [Mass/Vol] 32.1 g/dL Normal 29.9-35.2 [facility] Comment on above: Performed By: #### S PUTGS #### [facility] [address] [place] [address] Dr. Johnna Dixon MCV (RBC) [Entitic vol] 95.7 fL Critically high 80.0-94.0 [facility] Comment on above: Performed By: #### S PUTGS #### [facility] [address] [place] [address] Dr. Johnna Dixon MONO # 0.6 103/ul Normal 0.3-0.8 [facility] Comment on above: Performed By: #### S PUTGS #### [facility] [address] [place] [address] Dr. Johnna Dixon Monocytes/100 WBC (Bld) 12.5 % Critically high 1.7-12.0 [facility] Comment on above: Performed By: #### S PUTGS #### [facility] [address] [place] [address] Dr. Johnna Dixon NEUT # 3.6 103/ul Normal 1.4-6.5 [facility] Comment on above: Performed By: #### S PUTGS #### [facility] [address] [place] [address] Dr. Johnna Dixon Neutrophils/100 WBC (Bld) 72.6 % Normal 43.0-75.0 [facility] Comment on above: Performed By: #### S PUTGS #### [facility] [address] [place] [address] Dr. Johnna Dixon Platelet mean volume (Bld) [Entitic vol] 9.5 fL Normal 9.5-13.5 [facility] Comment on above: Performed By: #### S PUTGS #### [facility] [address] [address] [address] Johnna Dixon PLT 213 103/ul Normal 150-450 [facility] Comment on above: Performed By: #### S PUTGS #### [facility] [address] [place] [address] Dr. Johnna Dixon RBC 4.17 106/ul Critically low 4.70-6.10 [facility] Comment on above: Performed By: #### S PUTGS #### [facility] [address] [address] [address] Johnna Dixon WBC 5.0 103/ul Normal 4.0-11.0 [facility] Comment on above: Performed By: #### S PUTGS #### [facility] [address] [place] [address] Dr. Johnna Dixon CULTURE BLOODon 10-05-2022 Microscopic examination of blood, culture Culture Observations: NO GROWTH AT 5 DAYS. Normal [facility] Comment on above: Performed By: #### B LDCX2 #### [facility] [address] [place] [address] Dr. Johnna Dixon Microscopic examination of blood, culture Culture Observations: NO GROWTH AT 5 DAYS. Normal [facility] Comment on above: Performed By: #### S PUTGS #### [facility] [address] [place] [address] Dr. Johnna Dixon CULTURE SPUTUMon 10-05-2022 CULTURE SPUTUM Culture Observations : NORMAL RESPIRATORY JONATAN. Normal [facility] Comment on above: Performed By: #### S PUTGS #### [facility] [address] [place] [address] Dr. Johnna Dixon Covid-19 PCR (CVDTB)on 09-19 SARS-CoV-2 (COVID-19) RNA REX+probe Ql (Unsp spec) Not detected Normal NOT DETECTED [facility] Comment on above: Result Comment: This test is not yet approved or cleared by the [place] FDA. When there are no FDA-approved or cleared tests available, and other criteria are met, FDA can make tests available under an emergency access mechanism called an Emergency Use Authorization (EUA). The EUA for this test is supported by the [place] of Health and Human Service's (HHS's) declaration [...] SARS-CoV-2. Performed By: #### C VDTB #### [facility] [address] [place] [address] Dr. Johnna Dixon LACTATE/LACTIC ACIDon 2022 Lactate [Moles/Vol] 1.2 mmol/L Normal 0.4-2.0 [facility] Comment on above: Performed By: #### L ACT #### [facility] [address] [place] [address] Dr. Johnna Dixon Lactate [Moles/Vol] 2.4 mmol/L Critically high 0.4-2.0 [facility] Comment on above: Performed By: #### L ACT #### [facility] [address] [place] [address] Dr. Johnna Dixon Lab Reportson 10-05-2022 Lab Reports [id number] Normal [facility] PROF CHEM 8 (BAS METB)on Anion gap [Moles/Vol] 12.6 mmol/L Normal [facility] Comment on above: Performed By: #### B MP #### [facility] [address] [place] [address] Dr. Johnna Dixon Calcium [Mass/Vol] 8.9 mg/dL Normal 8.5-10.1 [facility] Comment on above: Performed By: #### B MP #### [facility] [address] [address] [address] Johnna Dixon Chloride [Moles/Vol] 106 mmol/L Normal 98-107 [facility] Comment on above: Performed By: #### B MP #### [facility] [address] [address] [address] Johnna Dixon CO2 [Moles/Vol] 25.8 mmol/L Normal 21.0-32.0 [facility] Comment on above: Performed By: #### B MP #### [facility] [address] [address] [address] Johnna Dixon Creatinine [Mass/Vol] 1.41 mg/dL Critically high 0.70-1.30 [facility] Comment on above: Performed By: #### B MP #### [facility] [address] [address] [address] Johnna Dixon EGFR-AF GUYANESE >60 Normal >=60 [facility] Comment on above: Performed By: #### B MP #### [facility] [address] [address] [address] Johnna Dixon EGFR-NON AF GUYANESE 50 mL/min/1.73m2 Critically low >=60 [facility] Comment on above: Performed By: #### B MP #### [facility] [address] [place] [address] Dr. Johnna Dixon Glucose [Mass/Vol] 111 mg/dL Critically high 74-106 T [facility] Comment on above: Performed By: #### B MP #### [facility] [address] [address] [address] Johnna Dixon Potassium [Moles/Vol] 3.4 mmol/L Critically low 3.5-5.1 [facility] Comment on above: Performed By: #### B MP #### [facility] [address] [address] [address] Johnna Dixon Sodium [Moles/Vol] 141 mmol/L Normal 136-145 [facility] Comment on above: Performed By: #### B MP #### [facility] [address] [address] [address] Johnna Dixon Urea nitrogen [Mass/Vol] 17.0 mg/dL Normal 7.0-18.0 [facility] Comment on above: Performed By: #### B MP #### [facility] [address] [address] [address] Johnna Dixon Urea nitrogen/Creatinine [Mass ratio] 12.1 mg/mg Normal [facility] Comment on above: Performed By: #### B MP #### [facility] [address] [address] [address] Johnna Dixon SPUTUM GRAM STAINon 10-06-19 COMMENTS Normal [facility] Comment on above: Performed By: #### S PUTGS #### [facility] [address] [place] [address] Dr. Johnna Dixon DIPHTHEROIDS [facility] Comment on above: Performed By: #### S PUTGS #### [facility] [address] [place] [address] Dr. Johnna Dixon EPITHELIALS <25 Normal [facility] Comment on above: Performed By: #### S PUTGS #### [facility] [address] [place] [address] Dr. Johnna Dixon FUNGAL ELEMENTS [facility] Comment on above: Performed By: #### S PUTGS #### [facility] [address] [place] [address] Dr. Johnna Dixon GRAM NEG BACILLI FEW [facility] Comment on above: Performed By: #### S PUTGS #### [facility] [address] [place] [address] Dr. Johnna Dixon GRAM NEG DIPPLOCOCCI Normal [facility] Comment on above: Performed By: #### S PUTGS #### [facility] [address] [address] [address] Johnna Dixon GRAM POS BACILLI [facility] Comment on above: Performed By: #### S PUTGS #### [facility] [address] [place] [address] Dr. Johnna Dixon GRAM POSITIVE COCCI FEW Normal [facility] Comment on above: Performed By: #### S PUTGS #### [facility] [address] [place] [address] Dr. Johnna Dixon WBC (Bld) [#/Vol] 10*3/uL Normal [facility] Comment on above: Performed By: #### S ANA #### [facility] [address] [place] [address] Dr. Johnna Dixon SYMPTOMATIC COVID-19 ANTIGEN on 10-05-2022 EUA Statement SEE BELOW Normal [facility] Comment on above: Result Comment: This test [...] sooner. Performed By: #### C GREERS #### [facility] [address] [place] [address] Dr. Johnna Dixon SARS-CoV-2 (COVID-19) RNA REX+probe Ql (Unsp spec) Negative Normal NEGATIVE [facility] Comment on above: Performed By: #### C VDMIKALAS #### [facility] [address] [place] [address] Dr. Johnna Dixon XR CHEST 1 Von [...] SOCORRO SERRANO Date: 2022-10-05 11:44 Normal [facility] Coding Summary.on 10-01-2022 Coding Summary. CD:[id number] Ww +PGhlYWQ+[id number] NUckB6cX7NREXkXToalGJZ MAPnILlOonwDaZP4lwYSjJ XJu IC8+CX6bGALpWebfjTIdq9 R2sGX7B77mzo7sKJfizBL8 EFJlLpQiggper8rqgIu4YX cuNmluOyBt HSIthS47NXN9xY09Bx69hB EktHFmy1uwwFm8ElEtOPRg QUV4wDtnNFqbr1JnUBJnH3 1cuKOss6T8 TCSirJuaqITtOgJozSV6mE 7hGBbcywlra6oteygfEqk8 gw23kFLha2N0uAP6B3Mrro D0TQLkiRDe CgepqDUUnZ6gmjscr2lzfd yjJzRoITLjNIc2YYb9BWOd wGkrMwDoWC66ACF1SMIuic ChK0GlUSPy iEytSzX7a6U3Sh8PP5MWQw shR0JXLAUXESnuhMW+PC90 ic17M1ElRabpPsx2LJZaZD T9lNG3kY0e ZWNfPQvfx9R8fVK3T4Lxox Sugq8nd0qgQCOsOMvyS28a zHJla7X8SBNhhOG1ZSCcaE diInCmcF83 Oyc+APOpzOwfh2ZwUrwkn4 tik0ohnOs8WwbwPJDqroSb hOvgGSO3c9RoVf4zMHDfvE H1xBW5kB2j ExTnLiP1XOriF956LzSquL BqUhevR49lT6GfqAI+PHRy Cmg2ISPuxVdmZN3xJ2OaWU RpbmctbGVm nQnlHY5jICVkwgdmJPJcgM 4zHJHoN0u6DtDwAwU5BDkh H7PjZQUlkqjhQn70uS0fCy YmJlX7UQdj K9CfuqR9VITknAWhRGmoHP Q0O45ip8A7NPLoPBMdPTK1 kIW1fC6iiSitufttgHNcrZ sgdmVydGlj XLieLQsmV304ARSzgVjlCq NvZGluZyBEYXRlOiAgMDQv MTMvMjAyMzwvdGQ+PHRkIH H0yMvhVDJk kPSoXDmqEy9giCvsfIhlKG 4mJDZeighbZBLqiT6iUIMq rQHfwSqnGV5sDMYofwljr1 81BbImXOD3 DCZttBFpG0DmbE7bCzQyUN BqYFJeA9FsiDWfRLkwZ106 XSkwDwM8VBSoovHmB3EmFF FsaWduOiB0 t6C0Ha9Zw2LbbdfcA4TkkI EwMlHgXbizKXx2D9UzHrqz dHI+LN01SXCoIS81XZw6KE T5cBypFTlz VWRpM3LozN3qTeTuIREgLC RkOyc+PHRhYmxlIHdpZHRo RRrfLYAaYxKfiMxbHP4tFk 9yZGVyLWNv vDginXDfHhObl9xjZWVcDP yoYV6yzNviE5InbXQ1XANm x7i0My67C58kM2JltTF+PG MzlTO5hJF7 rV8eYcWlMcS2YQdcA944Jr EapERiQrcxh8cpu6rhcMq1 JyR7BWMgomGosEwyBJW3m2 TyHb20Z71i IHdpZHRoPSIxNSUiIHZhbG lldr2ogX4nPr3+PGNvbCB3 gSP5mG8sEhDpKmU0ZXulI5 49InRvcCIv Suzsb0ykp7vmnXj9FxZfYP InbyIkwHfbNQL6h2ChDg63 X8LstBmkz7MeKpy7tu94rP Cea5E4zHU7 X0SpDLBepglsjDPviYwnNC 7hPBLdjvpbZYJvqE1uRWZg P1y5EwFcSeR3AUbxY1Vlyp E6HNSriDXu QGWjaYVTqJ5cpukdo0lxpx ykZvJnEXLoNMw0GJp5OEEx aFpnQeIzFQY0BmN0WPP9yI QueA1xdGnt mmgjcR9nIei+VRN1jIHbnT YUAK2yRkpcgMW+PHRkIHN0 oRzdXJepYEKoxJ8tVKTkY8 c2ByFqSjG7 TTziI4WzqaQ0FHWjoOFuEY KwmKSCkX2szzyvv5wvpnhp LkApHRBdUOo1WUl2MHPofU duOiBsZWZ0 DpR3QSC4zWFmiH4ouIqqcj qboK1aVoi+QmlydGggRGF0 ZTx0I7UjDcg1GVIqyObhLS 0ncGFkZGlu Mq6igXaylRqqQU6sTGYvvx wgz260UiWgh1onGNWoeQOg OYiePOY0M62hk6K4QSXkPV RkSXX5pZP2 uR4tbWjxrhknnPPtsGunwz UkpWkvFKgoZQnmW769TYNg sCfxBtFvEZu3A2KzBco0PM BwjIsiIJ0v mNTjUNuzTw3ksRzpsSyxTQ 6vAUOklrfnc722MzWjb7wu VTDkfBLiQZikJPW0T09gg7 J5JHMvOVIb HBQ1jGI3dM1vbGpajzmyqH VmdDsgdmVydGljYWwtYWxp Q326BEHjpDwkLiZhqUj4B1 GgLwx3RMEr nNhgFC2jqLXrSPlhPe2kvK jvaKodCJ4gXLDbwlrxm225 UzCez3qbJAArjCCgIXnbNU A0R89vu9F6 XLKxHRWgPZP3vRE4pK8bwQ lnbjogbGVmdDsgdmVydGlj UXxdBIhfT269HVZttQauYn BhdGllbnQg UIasVFe5Y3TyDktlvCN+PC 06SBZzUK22tEOwbWMzc8gv dYt6MkHqCRAvIVZ1iNojAA skx8DyRXFt S01pjGFfd6K1GMHvhTrwlF SvVgNluFA8kK9dVDjvndjp w7kmwvbxXvaly1hjwn44lH 25I05jPYtx ZHRoPSIzMCUiIHZhbGlnbj 9jnR8zLy5+JUBanWW7tFO1 xE9fIXNjUuO5VGzyT948Af RvcCIvPjxj c1hgv7qkmPj5LdS8XNSxxh MvaFsoVTO6c3WyEn37D01t IHdpZHRoPSIyMCUiIHZhbG hrym6hpA6a Ii8+MAOkzYN8bMI3eJ6gTl NaKaB8KKtaK470CjUphDEi ExjgX18kV8UqrCS+PHRyPj n1XNGqdIhe GE4lgWImQImfId9lCNL2Sr ZeIuAfVFmlR5VqHVVrjene ijrqwNJ9XMGjEJOtvR52Hv 9udDogMTBw rVJIwR0rzfnxj3cwbvydWl WlIBMjFJr5ARb2NMHbhNlw ZwNtSOV1YbX9YIY4lFPvcR 1hbGlnbjog pU4eE7CnQVOcgfrzNt92vD 9fGxEyUfL4WVpvJva+S0xJ WjjZJIPlVJnOOARLTY63P0 KsBbt5WDVf lRwtRI4dwGVxGZfnAc3dxH hlhOpqTP5rXXNosbigCSSb eZ1sSPZlnFOpyLtsJQ6iEQ Ynxorzm731 WbUlJIM7IEHvyQWmA6IwbB 4yIxTaLJZvGHQmQ2OrnJPm IEblF061YTmpRmM5RJAfkl OeS0ZmFLCg kIdwPqP9c5A2Ra5qYV8pCL 7yJOFtCV04DO93fNKot7Z7 mBB1S3RwRHEmtwllwxcuiN G5CGBmPXFp bM16vLOiKOgvSr6vc7N3a4 78RIMdUQEecR78Ns7nxWko ZJJmnLWBrL8vsgacm4cfcx ogIzAwMDAw HOm6TDc7CKUoeComSqBfYZ Y8ExB6ZHS8dZFtfG5agVkd sybefQ8aOzd+NzEgWWVhcn X2R6TlEst4 ADMmoPmyBL0yhAHnHIqmNe 5deTnksSotVQ1rRPNjizpn VIQjyM9yZVYcnVKpjHnnZX 4wNTBpbjtm m200OrBwIUT2WJSurWPuF1 VyiO8zWsYgQSTsIKAjU9Zs vSLjEWngT013VLkyBoB3NA RafsLsY1Ek NQEhnLzcItR2g4Y8Li2CJA wyRC58ZA10sXAkc7I2uLX6 V0BcCNKiptwujnzoeDN5EC WqTSSlwJ62 pFUuKZpwLj1lo6E7t240PI FoJESokN56Gt5qmWwcGQCg hMSWgN8hgolmt8xxieorAy AwMDAwMDt0 LDp4FXKeaSunKnHyFRS9Ba H6TAQ3eAVpuV2urXjlrztb mV3wKgm+Y8V0kQY4sFRcyW wvdGQ+PC90 ez44Z6IyDenwNns9KGUhRT N2uWN2zK1fYCZiDMppc1A1 pZC2T4HnonIddu1qj2tvAT HdJHjcV71a vWEoe3J4CROxjNH8ANZtfL czIgNaaA70Ewg+PGNvbGdy b9CtMvghs5gnh3zflOs1Wr MwJSIgdmFs zOlmDEZ4d3XoIg46E79fPQ dpZHRoPSIzMCUiIHZhbGln no5npG5gLp3+IFYsvIA2hL J2xN6eExLc WrW2PMbhW507HjNbaNTyAn dgv7vee0xhoJb7YeBiKXRv efWwyNumHIH0r4NkSo06M3 NphOhxd7Mt Lbd5kw76rAHco3W7yME5F2 HrBCEqatuprIGuxAdzKF1q BIWwcpjxXONrvI7rULFrA2 q6NeQuIvL7 NRmuF4JuomX3WQOkzIXlFY KqvMPHkX6otqnab1miepzl DmBqAAOpONr0VRp8NGNctG duOiBsZWZ0 ZnV4UVB2uQDdbO0ugCyhof zxzR1iRvd+NGt3o4uocBTu VW3ngIH5TM10ZB87dDFqk1 J7nCI0Y2Kc XFNdzaxbpstwpXW5JLEuBD BalX52Ev5yaRntEt9fYHEm SJN6TMPwvGIaJ4RzzS4rUq AjMDAwMDAw Y7CztRIiFVvoZ252XIumDk Z7WSLqseMyZ2RgNPDpaXrd ClN0k1J0Tj2CDS01MI44XI 82iLQfc7I2 hHW2H9CgSBYvezfiblflcG T0QLJmKAPriQ21Ax7bcTpu Zk5zPUVtBQP0QKMrwYNwM2 ZhkK0eWqEf VDRtVCZxN2OjaZRiHMkkN0 08BCdqHiR5KZMxmqTwL9Iz MVXnoRciSrR7f2T5Qq7GDp 27PN60IA05 xNEkk8E4kBY1H6IpYOBijp hpfhhozCX4PKRaIKBnsI90 Bp7dgJakEo5eUPNyKRI7JF YmvCVrU6Aq qI3yFiSkDXYqDOByW2GghG IvRQwuS562VQcnSlQ8BKWy gxLdB9FvHNSngNbbTwN3e4 M9Cc0SQIgj ooi6L2ZaLkegeKR+PC90YW LiOM54cLOplTAxn9nzeAh1 ZnGyTMFsKSV2wVdpHUouf1 DhSVQiX71n vZSks9U8 (more content not included)... Normal [facility] Consent for Procedure/Surger yon 09-29-2022 Consent for Procedure/Surgery [id number]#1.00 CD:127 [facility] Consent for Treatmenton 09-19 Consent for Treatment [id number]#1.0 0CD:127 [facility] IntraOperative Documentson 0 09-29-2022 IntraOperative Documents [id number]#1.00 CD:127 [facility] Main OR Intraoperative Recor don 09-29-2022 Main OR Intraoperative Record IntraOp Document Type FTURO Summary Primary Physician: Lionel CARRINGTON MD Finalized Date/Time: 09/29/22 10:53:58 Pt. Name: MARY DIAZ/Sex: 1950 Male Med Rec #: [id number] Physician: Lionel CARRINGTON MD Financial #: [id number] Pt. Type: O Room/Bed: / Admit/Disch: 09/29/22 [...] Nanci Luna Role Performed Surgeon - Primary Corporate Director Talent Assessment - Primary Scrub - Primary Time In [...] PAULINA Rene RN, Ruthann 09/29/22 10:53 Normal [facility] Main OR Preoperative Recordo n 09-29-2022 Main OR Preoperative Record Holding Area Document Type FTURO Summary Primary Physician: Lionel CARRINGTON MD Finalized Date/Time: 09/29/22 10:52:30 Pt. Name: MARY DIAZ/Sex: 1950 Male Med Rec #: [id number] Physician: Lionel CARRINGTON MD Financial #: [id number] Pt. Type: O Room/Bed: / Admit/Disch: 09/29/22 [...] No Pain Comment: na Skin Integrity Intact, Emlyn, Warm, & Dry Vitals - EU Blood Pressure 148/82 Pulse 53 bpm Respirations 16 br/min SPO2 96 % RN Reviewed Yes Last Modified By: PAULINA Rene RN, Ruthann 09/29/22 10:52:28 General Comments: temp:36.5 Finalized By: PAULINA Rene RN, Ruthann Document Signatures Signed By: Iram Thomas LPN 09/29/22 10:28 PAULINA Rene RN, Ruthann 09/29/22 10:52 Normal [facility] Operative Reporton Operative Report Patient: MARY DIAZ [...] with antibiotic coverage, Follow up arranged. Normal [facility] Comment on above: Result Comment: Elec tronically Signed By: DEVONTE NOBLE, Lionel Gama.tacos\Date and Time Signed: 09/29/22 10:57 EDT Urine Cytology ([facility])on 0 09-28-2022 Urine Cytology Diagnosis Info Invalid Interpretation Code [facility] Comment on above: Result Comment: A:Ur ine,Urine:Voided Interpretation - MicroScopic Description - Adequacy - Gross Description Site ID:A color Yellow fixative Alcohol Specimen designated Urine received in alcohol preservative and labeled with the patient?s name, consists of 40ml clear yellow fluid. Electronically signed by : on: 09/28/2022 09:14:07 Performed By: #### 1 [id number] ####[facility] [address] [place] [address] US SINGLE QUAD RT UPPERon US SINGLE [...] SOCORRO HUFFMAN Date: 2022-09-24 09:46 Normal [facility] AMYLASEon 09-21-2022 Amylase [Catalytic activity/Vol] 78 U/L Normal 25-115 [facility] Comment on above: Performed By: #### C VDTBH #### [facility] [address] [place] [address] Dr. Johnna Dixon CBC AUTO DIFFon 09-21-2022 BASO # 0.0 103/ul Normal 0.0-0.1 [facility] Comment on above: Performed By: #### C VDTBH #### [facility] [address] [place] [address] Dr. Johnna Dixon Basophils/100 WBC (Bld) 0.5 % Normal 0.2-2.0 [facility] Comment on above: Performed By: #### C VDTBH #### [facility] [address] [place] [address] Dr. Johnna Dixon EO # 0.1 103/ul Normal 0.0-0.7 [facility] Comment on above: Performed By: #### C VDTBH #### [facility] [address] [place] [address] Dr. Johnna Dixon Eosinophils/100 WBC (Bld) 1.9 % Normal 0.9-7.0 [facility] Comment on above: Performed By: #### C VDTBH #### [facility] [address] [place] [address] Dr. Johnna Dixon Erythrocyte distribution width (RBC) [Ratio] 14.5 % Normal 11.0-15.0 [facility] Comment on above: Performed By: #### C VDTBH #### [facility] [address] [place] [address] Dr. Johnna Dixon Hematocrit (Bld) [Volume fraction] 39.1 % Critically low 42.0-54.0 [facility] Comment on above: Performed By: #### C VDTBH #### [facility] [address] [place] [address] Dr. Johnna Dixon Hemoglobin (Bld) [Mass/Vol] 12.8 g/dL Critically low 14.0-18.0 [facility] Comment on above: Performed By: #### C VDTBH #### [facility] [address] [place] [address] Dr. Johnna Dixon IG # 0.05 10e3/ul Critically high 0.00-0.03 [facility] Comment on above: Performed By: #### C VDTBH #### [facility] [address] [place] [address] Dr. Johnna Dixon IG % 0.7 % Critically high 0.0-0.5 [facility] Comment on above: Performed By: #### C VDTBH #### [facility] [address] [place] [address] Dr. Johnna Dixon LYMPH # 2.0 103/ul Normal 1.2-3.8 [facility] Comment on above: Performed By: #### C VDTBH #### [facility] [address] [place] [address] Dr. Johnna Dixon Lymphocytes/100 WBC (Bld) 27.4 % Normal 20.5-60.0 [facility] Comment on above: Performed By: #### C VDTBH #### [facility] [address] [place] [address] Dr. Johnna Dixon MANUAL DIFF REQ NO Normal [facility] Comment on above: Performed By: #### C VDTBH #### [facility] [address] [place] [address] Dr. Johnna Dixon MCH (RBC) [Entitic mass] 31.3 pg Normal 25.9-34.0 [facility] Comment on above: Performed By: #### C VDTBH #### [facility] [address] [place] [address] Dr. Johnna Dixon MCHC (RBC) [Mass/Vol] 32.7 g/dL Normal 29.9-35.2 [facility] Comment on above: Performed By: #### C VDTBH #### [facility] [address] [address] [address] Johnna Dixon MCV (RBC) [Entitic vol] 95.6 fL Critically high 80.0-94.0 [facility] Comment on above: Performed By: #### C VDTBH #### [facility] [address] [place] [address] Dr. Johnna Dixon MONO # 0.5 103/ul Normal 0.3-0.8 [facility] Comment on above: Performed By: #### C VDTBH #### [facility] [address] [place] [address] Dr. Johnna Dixon Monocytes/100 WBC (Bld) 6.9 % Normal 1.7-12.0 [facility] Comment on above: Performed By: #### C VDTBH #### [facility] [address] [place] [address] Dr. Johnna Dixon NEUT # 4.7 103/ul Normal 1.4-6.5 [facility] Comment on above: Performed By: #### C VDTBH #### [facility] [address] [place] [address] Dr. Johnna Dixon Neutrophils/100 WBC (Bld) 62.6 % Normal 43.0-75.0 [facility] Comment on above: Performed By: #### C VDTBH #### [facility] [address] [place] [address] Dr. Johnna Dixon Platelet mean volume (Bld) [Entitic vol] 9.3 fL Critically low 9.5-13.5 [facility] Comment on above: Performed By: #### C VDTBH #### [facility] [address] [place] [address] Dr. Johnna Dixon PLT 235 103/ul Normal 150-450 [facility] Comment on above: Performed By: #### C VDTBH #### [facility] [address] [place] [address] Dr. Johnna Dixon RBC 4.09 106/ul Critically low 4.70-6.10 [facility] Comment on above: Performed By: #### C VDTBH #### [facility] [address] [place] [address] Dr. Johnna Dixon WBC 7.4 103/ul Normal 4.0-11.0 [facility] Comment on above: Performed By: #### C VDTBH #### [facility] [address] [place] [address] Dr. Johnna Dixon LIPASEon 09-21-2022 Lipase [Catalytic activity/Vol] 114.0 U/L Normal 73.0-393.0 [facility] Comment on above: Performed By: #### C VDAGS #### [facility] [address] [place] [address] Dr. Johnna Dixon LIVER PROFILEon 09-21-2022 Albumin [Mass/Vol] 3.9 g/dL Normal 3.4-5.0 [facility] Comment on above: Performed By: #### C VDTBH #### [facility] [address] [place] [address] Dr. Johnna Dixon Albumin/Globulin [Mass ratio] 1.6 {ratio} Normal [facility] Comment on above: Performed By: #### C VDTBH #### [facility] [address] [place] [address] Dr. Johnna Dixon ALP [Catalytic activity/Vol] 59 U/L Normal 46-116 [facility] Comment on above: Performed By: #### C VDTBH #### [facility] [address] [place] [address] Dr. Johnna Dixon ALT [Catalytic activity/Vol] 23 U/L Normal 16-63 [facility] Comment on above: Performed By: #### C VDTBH #### [facility] [address] [place] [address] Dr. Johnna Dixon AST [Catalytic activity/Vol] 8 U/L Critically low 15-37 [facility] Comment on above: Performed By: #### C VDTBH #### [facility] [address] [place] [address] Dr. Johnna Dixon BILI, CONJUGATED 0.1 mg/dL Normal 0.0-0.2 [facility] Comment on above: Performed By: #### C VDTBH #### [facility] [address] [address] [address] Johnna Dixon Bilirubin [Mass/Vol] 0.3 mg/dL Normal 0.2-1.0 [facility] Comment on above: Performed By: #### C VDTBH #### [facility] [address] [place] [address] Dr. Johnna Dixon Globulin (S) [Mass/Vol] 2.5 g/dL Normal [facility] Comment on above: Performed By: #### C VDTBH #### [facility] [address] [place] [address] Dr. Johnna Dixon Protein [Mass/Vol] 6.4 g/dL Normal 6.4-8.2 [facility] Comment on above: Performed By: #### C VDTBH #### [facility] [address] [place] [address] Dr. Johnna Dixon PROF CHEM 8 (BAS METB)on Anion gap [Moles/Vol] 13.4 mmol/L Normal [facility] Comment on above: Performed By: #### C VDTBH #### [facility] [address] [place] [address] Dr. Johnna Dixon Calcium [Mass/Vol] 8.9 mg/dL Normal 8.5-10.1 [facility] Comment on above: Performed By: #### C VDTBH #### [facility] [address] [place] [address] Dr. Johnna Dixon Chloride [Moles/Vol] 106 mmol/L Normal 98-107 [facility] Comment on above: Performed By: #### C VDTBH #### [facility] [address] [place] [address] Dr. Johnna Dixon CO2 [Moles/Vol] 25.6 mmol/L Normal 21.0-32.0 [facility] Comment on above: Performed By: #### C VDTBH #### [facility] [address] [place] [address] Dr. Johnna Dixon Creatinine [Mass/Vol] 1.21 mg/dL Normal 0.70-1.30 [facility] Comment on above: Performed By: #### C VDTBH #### [facility] [address] [address] [address] Johnna Dixon EGFR-AF GUYANESE >60 Normal >=60 [facility] Comment on above: Performed By: #### C VDTBH #### [facility] [address] [address] [address] Johnna Dixon EGFR-NON AF GUYANESE 59 mL/min/1.73m2 Critically low >=60 [facility] Comment on above: Performed By: #### C VDTBH #### [facility] [address] [address] [address] Johnna Dixon Glucose [Mass/Vol] 115 mg/dL Critically high 74-106 [facility] Comment on above: Performed By: #### C VDTBH #### [facility] [address] [address] [address] Johnna Dixon Potassium [Moles/Vol] 4.0 mmol/L Normal 3.5-5.1 [facility] Comment on above: Performed By: #### C VDTBH #### [facility] [address] [address] [address] Johnna Dixon Sodium [Moles/Vol] 141 mmol/L Normal 136-145 [facility] Comment on above: Performed By: #### C VDTBH #### [facility] [address] [address] [address] Johnna Dixon Urea nitrogen [Mass/Vol] 19.0 mg/dL Critically high 7.0-18.0 [facility] Comment on above: Performed By: #### C VDTBH #### [facility] [address] [address] [address] Johnna Dixon Urea nitrogen/Creatinine [Mass ratio] 15.7 mg/mg Normal [facility] Comment on above: Performed By: #### C VDTBH #### [facility] [address] [address] [address] Johnna Dixon Patient Educationon 09-22-19 23 [...] if anything looks unusual. Men with a cdscsv-kfsx-uymjyk risk for skin cancer may want to see a interlibrary loan specialist (white lead filterer) for an annual body check. Where to find more information ? National Cancer Helen: https://www.cancer.gov /about-cancer/screenin g ? Centers for Disease Control and Prevention: https://www.cdc.gov/ca ncer/dcpc/prevention/s creening.htm ? [place] Cancer Society: https://www.cancer.org /latest-news/4-cancer- vnvphhmdu-nazuw-jui-me n.html Contact a health care (more content not included)... Normal [facility] Urine Cytology ([facility])on 0 09-21-2022 UC Method of Extraction Voided Normal [facility] Comment on above: Performed By: #### 1 [id number] ####[facility] [id number] [facility] [place] [address] Number of Jars 1 Invalid Interpretation Code [facility] Comment on above: Performed By: #### 1 [id number] ####[facility] [id number] [facility] [place] [address] Specimen Urine Normal [facility] Comment on above: Performed By: #### 1 [id number] ####[facility] [address]Norm[address]aw[facility] [place] [address] Type of Service Technical Only Normal [facility] Comment on above: Performed By: #### 1 [id number] ####[facility] [address] [employer] [place] [address] Ambulatory Visit Summaryon 0 08-17-2022 Ambulatory Visit [...] NOBLE, Lionel Burgos Where: [facility] Normal [facility] CREATININEon 08-04-2022 Creatinine [Mass/Vol] 1.31 mg/dL Critically high 0.70-1.30 [facility] Comment on above: Performed By: #### C JANIS #### [facility] [address] [address] [address] Johnna Dixon EGFR-AF GUYANESE >60 Normal >=60 [facility] Comment on above: Performed By: #### C JANIS #### [facility] [address] [address] [address] Johnna Dixon EGFR-NON AF GUYANESE 54 mL/min/1.73m2 Critically low >=60 [facility] Comment on above: Performed By: #### C JANIS #### [facility] [address] [address] [address] Johnna Dixon CTA NECK WO W [...] by: ALLI CORTES Date: 2022-08-04 14:04 Normal [facility] US CAROTID ART BILon 023 US CAROTID [...] by: ALLI CORTES Date: 2022-07-28 12:00 Normal [facility] Ambulatory Visit Summaryon 0 07-20-2022 Ambulatory Visit Summary MARY DIAZ :1950 Visit Date:07/20/2022 Ambulatory Visit Instructions Your Diagnosis History of bladder cancer Tests Performed Urnls Dip Stick Auto w/o Microscopy POC 28536 Your Care Team Attending Physician - Lionel [...] AM EST With: Where: [facility] Normal [address] [place] [address] [place] [address]- \.br\ Medications\.br \ What How Much When [...] Urnls Dip Stick Auto w/o Microscopy POC 86465 (07/20/2022)\.b r\ POC Test Comments - UA prior to Mitomycin tx\.br\ Bilirubin Urine Dipstick - Negative\.br\ Blood Urine Dipstick - Negative\.br\ Glucose Urine Dipstick - Negative\.br\ Ketones Urine Dipstick - Negative\.br\ Leukocytes Urine Dipstick - Negative\.br\ Nitrite Urine Dipstick - Negative\.br\ Protein Urine Dipstick - Negative\.br\ Specific [place] Urine Dipstick - 1.020\.br\ Urine Appearance Urine [...] for.\.br\ Acid reflux\.br\ Cancer of prostate\.br\ \.br\ [facility] Consent for Procedure/Surger yon 07-15-2022 Consent for Procedure/Surgery [id number] 0CD:127 Normal [facility] Consent for Procedure/Surgery [id number]#[id number] 0CD:127 Normal [facility] UroVysion FISH (Peerform)on 0 07-15-2022 UroVysion FISH Diagnosis Info Invalid Interpretation Code [facility] Comment on above: Result Comment: A:Ur ine,Urine:Bladder [...] on: 07/15/2022 15:42:11 Performed By: #### 1 [id number] #### [facility] [address] [place] [address] Coding Summary.on 07-08-2022 Coding Summary. CD:[id number] Gh 0bWw+PGhlYWQ+VY5WAOGrO 36zrPPtqC3BD2oQRG6CKOR RTVYASM5RJI2srFW8FYomE 2VybiAv KnhmeQPzYO51JPg9DAJ3nC oyGFeguF3kwWIcK7a7CaFj GR01cA13HHfjNLQdDvM1Bk ZpbjsgbWFy C0wqMeNtpSXaEyo+PHRhYm xlIHdpZHRoPScxMDAlJyBz pDldBU3aWd2gUMUgGJIwdW xhcHNlOiBj a6agQUCrNLqdEA4wuOjrN6 AeuHO7ZHZpu2o5Vr55tGZ+ YNIlIIX5dTqyJEcue454Rx Yik4kpHDJ7 uKXhSDooKWY5R35ii4Q3XQ JjAGKtLVH0jCY3cD2glSww jipbY5YyzDMyOlW9FBK1cS LipL6rdUrq wwvofE1vVlu+D57WHR1PQX REGM3ESxa0V0GdKsaskHH+ MX74VLFrIP77eAIhsGEzp1 volJr1AnAl YZFyGRH9qDlaVKeoj6ZuXS MuW82qrUYqr4C0NWGtfAnq oAJsGlNvzHD9yL7vEKwkos rzl3tjqmgz Noosl5fcqy33fQ72T63wLJ zgRDFmYWR6GHLtHLUoyUns mb8fwC6iEp4+ZYhuc3bdq6 fivCd7XpYe GRNjolMxvGmcUTC2a1RjPy 03Z3CnxCdcj0GwTfo4ys28 wQYww5B6oBM6YIbiKDHpdX 4dYLxwLsS5 HBJzEfFetU28tQIeKDftRu 3ffHlnyXjyWR9iGIPbcgxz SZVyuN0bKVUyeBWvgGnrIE 4wNTBpbjtm k953CbPrOPO1BMCywZHfD4 EyvC4zXpYjNLBmVPEbU8Fx gBFgQPpoP385HOjpCjT7JC HqfzHnU0Tq VDOdyBjmVyJ6i2B2Lm0Sy0 CndyhtCQS9BYzmUCHzNqE4 DtGcSgV7Z0RwHjy5QEDrxD kwQO4cY2Pe HFCcueqhfmebjCA2TJIcCC PurV56aRCmSHvlMl6mm5L3 s551EYCtHYDwrN35Df8yrJ ogMTBwdCBU oF4epnicl9qrfahiVdDkZW UrPWf2BMl7ODIitNjpCzBg WKC6EaW8OMX7oAYabY4jfG loehcjlR9m Oyc+Q14dtD0gYFL8RAR7kc sfEQSylfGaAO32AU92Z0Cs PjwvdGFibGU+PGRpdiBzdH jzDV2wDkDl k0xga6CjSGwdH7IlXKIpYF sfOob3OFXuKOR4dAM2oE8n TYBlYWdty9I4qKK1A8Dowx Anrd9sg7ya OSAkHYbvR56chGBjq4R6LK WoxXM9OJZxaNwrNlPyeF51 Oyc+GLVpvIxds1XkYqgyj9 xdl4pygMb8 DvOwOSAtsuOcqOwtNMI1x7 JpYg22D71oVRcmNODfYEMy ALHjSJScdXywbk3ntE7mLz 8+PGNvbCB3 wEE5gS4dYLFcFnW3WCvpS6 95KnZwwZRsXvxdg5igw6iv oVh0AgNbSKCfpkRpzRjrNH J3s2UiRw19 Q14rBWpdGMGxRCKfWRVyPF IcdHcyzc0buS5tWq5+PC9j i7zkhd40jR28rLH+PHRkIH N3cYnvRKxq CKRyuY5oUVhpAjP3RXEmHe ImjH84tHRwFQpcOt3nmAmf lKdcJS5mVMCosyhiw576Ul Bai0osZKFv jOEdCTziKYM6C06so9A6PK QyLHNmSDD9fVS2sH8uzHwp bjogbGVmdDsgdmVydGljYW xrHUyxX323 IHRvcDsnPlBhdGllbnQgTm DgYRv0S8MpUwo4KYIuqWif YL8aqDLiBLvuOh7gnSmvnI uqOM0cEKEu gvvhh923FrQal9lvCDKwyT OyWNulAUY1M52ju8M3FVPn ZAWlBOM9jXU9sA1feAlocd ogbGVmdDsg esUnfClpPIedALidE430GK RvcDsnPkJpcnRoIERhdGU6 ZH99UK90zHUrr8G6mCL6J6 BhZGRpbmct rlrhoDT3TFLpPICnjP18Tk 1epKtyKz8tXAKoWFL6KZBv cEEcB9UlnP5rYjPlPPBjTZ AbF6KsgAVy SMymP953RMboUxY7EKTjcm HsJ3PyXEXbwEtkSgX8r7K6 Ml8JS9J8WM26VF88vRTao3 N8lMU2X3Tn QYImzjaxhcinfYB6WEVfZB OviQ40Bz9amKktEf1cLDFa ONX4EUSusBRsB7AkdT1sBe AjMDAwMDAw I7FcqGJlMEgpM800VJcjJm D7MAUbfiIkR4LnWTNzgImo LsD8t7K7Zt9EVDm2ON34VY 79jNBsh5U0 oTE5E5WwWHXbvbtwoqcqkN C7YGBhRHDtcI41Eu4ocUvg Qx4vFIUpQHK1YTVgqEHwD3 OvhM5fRtLy QGNxYFLzD2GufIDaJPvuH7 56VGmxSzU4HJZwwkTrN9Ad EVGepOqtBcH7v6C9Js8TJX HzPS70WVO9 kWP1JT12QP99K6WqEtncmT FibGU+PHRhYmxlIHdpZHRo ILoyDHJiAvFgmValHS0vWs 9yZGVyLWNv yLfbcSXxFzIir1abUUZlRG qmAA8lwRmfJ2JbbYJ0WECl i1n0Gb79U74bA0FwbHG+PG YvrSX6mBP9 xV0oGfPxZaV0EUhwU718Uq OraADpAnflb5gpn3jtvGn6 EpR5PHAgzpCrdGeoYMW2h2 VgZv81G75x IHdpZHRoPSIxNSUiIHZhbG qolt8psU2gEk0+PGNvbCB3 qOC9yS6vNfMkEiG8RQodQ0 49InRvcCIv Rkazm7sax1fgpXq8HnQxSS QlfcJqlFcpOYF2q5GiAt13 C5ZkbOadl7EmPvt1hb62qZ Qev3A3iPO2 M8JzOAWayvcldYUkqHwrAP 4jRJCvdlbeELVuvO5aAKEh H2r5XtQeRiB1HJddF3Ixaj G1MWErmATz VMnrABK2S30va7K3WVPoNJ WjKAS3kKW2zE4wsRqkjkok bGVmdDsgdmVydGljYWwtYW spU350VMYl bCdwEUKwpO7wIQHpsIMqmE fgJL8dTQXrglayAtqUSM6E VIDJWPOJOF9CXoAPPV77TT 48vFNju5L7 bGE8P7ZhFXVxlhgrfidhlQ Y4LWTaFNMsnM68vPPfILmq Ra1vl2H2t186QBBwBWUvgT 06Xw2xmQvm VKVxyWZLbM1cuuxqb8hdpz rjHxYdIRKbVNx3GFs2PJKv wIziGjJlAAO4JoQ9AIO2uH LiaI3bnVvk nvoqrQ9uJvs+MDgvMTUvMT i9HCbgnTN+JACyEAN3iFkm SPjqHYHqaS2zLMBaR3y5Rs XxZiU4GBwo M3JxWJImojovEc87sZ5bZk TlNaD7PLitW8DvigM7UAXn hORiFRsiROG6C81ut8C0RW MwMDAwMDA7 oXB2pS6yjJagzsfubGJyeC cvyxJabGhuLPriBKspC992 IHRvcDsnPjcxIFllYXJzPC 26RB73lWCa w9H6bQH8U9IjIDPzozxjdv hrkUL2BGTyFRKckS11kQAp AZwyFa5bw3E1l616KZTfPM BreA76Ij4y tSomFYEbwKHCyV3xtbmza7 ztxgehImKdFKLiQAt9KBs5 JZKocWncAbAyATH9CsQ5TJ D6xPTteJ0d xMcyiegvgX9bRqa+TWFsZT wvdGQ+RBBtOQW9oBvrBPur DVYorS4iMYClS7d0LdNfLt E7RKjiO6Db UVCfhnksQx82aX2qItYzKb E9QWpqK6AhfvR3GTQgfHVi FLzgJBS7A20kp6L7DXOzVK IyLTY4dZY5 eE2vaSvtcudgfJQkwRvtta CobCzcCWamNAhiO719FQAg aNxgBo36iCHewVzrhnE3Q5 RkPjwvdHI+ YP45ATFyAR49tWAydJDmc0 oyeQr6SzBxEFEyYUU8bLmp FZrkg2OwNTWeY40mfUMcn5 K8VVMwrZmh tAVqWqOwjOL3kH4fORoqfp olm4nkoybaDxcyv5qwvv64 sO87E62cGHrqSBZtWSSrMN UiIHZhbGln ib3kcN1yPo8+UPDmgIR7vC M7iR1hYoRbDvQ7ZXquO800 CoVqeBOeAkzgh7xtk6dcmK o2FrAhLNDb svWguVgkZCV6d6GeRa75T9 9sIHdpZHRoPSIyMCUiIHZh gOiyrk9uwD0yOh1+PC9jb2 purv76iV63 dHI+RDPmTRY8cCzpLNznWZ CtnD7sQUeaWzS1THGoEpOq tN79nMMuNMsnHv5ciMvtxF foPA5eTGPp fmdet835ObJad5zaZZFuuF MaTLzoZXK3I87tc5C3OXPh NWJoUOC8hUL2vY6ncVsiar ogbGVmdDsg wvYrtGskUPgaGKaqT801JF FhiMtyPeNffZJlG5qrueYJ GS8sFpigsII+PAKkNTI7eH xlPSdwYWRk kV3aWVPbZ9b7WlAaTsZ2SL akR7EdyzL5RLJzlXHcATJq uYBTsG2fbkqdz7shhcrzFu AwMDAwMDt0 IQc2AWSsgDhrUsWtRVV3Ut Q5ASO3uVArkK4gmYgsszqz mG5wBwm+RklOOjwvdGQ+PH IbEPX3yEmt AEueAERzxO1nUAIbO7m4Ej AiNuT7ETkyG5MlqfZ1XWVf qFRdFAFwdPDTfL8surngn0 xvcjogIzAw FUGuJFy8WWb6JWOpzNqsRz MfENO8XuL8HEG8qYGhzZ2p iUmnlpvnsX9wFpb+TVJOOj wvdGQ+PHRk RDU0kUowDSmsGMPkmL3iDT RrL1f2TpZeIaC1ZWmdI4Nf uiQ4XXRmtZMhSCCegNVUcI 5rtppbq4iw adqiChQrKMQmLPf3WZv5YG OfrLacPnNqBGD2XqP3XIV6 lSKlbM0zjCbdlwpevU3pHi c+VWQ3MDB2 QS38UQ58W2McCtfokSVpkQ U+PHRhYmxlIHdpZHRoPScx OMBdPjGghVfoTB0bIo4nPT VyLWNvbGxh cHNl (more content not included)... Normal [facility] Consent for Procedure/Surger yon 07-08-2022 Consent for Procedure/Surgery [id number]#1. 00CD:127 Normal [facility] IntraOperative Documentson 0 07-08-2022 IntraOperative Documents [id number]#1. 00CD:127 [facility] Consent for Treatmenton 06-21 Consent for Treatment [id number]#1.0 0CD:127 [facility] Main OR Intraoperative Recor don 07-07-2022 Main OR Intraoperative Record IntraOp Document Type FTURO Summary Primary Physician: Lionel CARRINGTON MD Finalized Date/Time: 07/07/22 13:40:45 Pt. Name: MARY DIAZ/Sex: 1950 Male Med Rec #: [id number] Physician: Lionel CARRINGTON MD Financial #: [id number] Pt. Type: O Room/Bed: / Admit/Disch: 07/07/22 [...] Zora Luna Role Performed Surgeon - Primary Corporate Director Talent Assessment - Primary Scrub - Primary Time In [...] PAULINA Rene RN, Ruthann 07/07/22 13:40 Normal [facility] Main OR Preoperative Recordo n 07-07-2022 Main OR Preoperative Record Holding Area Document Type FTURO Summary Primary Physician: Lionel CARRINGTON MD Finalized Date/Time: 07/07/22 13:40:51 Pt. Name: MARY DIAZ/Sex: 1950 Male Med Rec #: [id number] Physician: Lionel CARRINGTON MD Financial #: [id number] Pt. Type: O Room/Bed: / Admit/Disch: 07/07/22 [...] No Pain Comment: na Skin Integrity Intact, Emlyn, Warm, & Dry Vitals - EU Blood [...] PAULINA Rene RN, Ruthann 07/07/22 13:40 Normal [facility] Operative Reporton Operative Report Patient: MARY DIAZ [...] then a repeat cystoscopy in September. Normal [facility] Comment on above: Result Comment: Elec tronically Signed By: DEVONTE NOBLE, Lionel Gama.tacos\Date and Time Signed: 07/07/22 10:51 EST [facility] ([email or web address])on 0 07-07-2022 UV Method of Extraction Bladder Wash Normal [facility] Comment on above: Performed By: #### 1 [id number] #### [facility] [address] [place] [address] UV Number of Jars 1 Invalid Interpretation Code [facility] Comment on above: Performed By: #### 1 [id number] #### [facility] [address] [place] [address] UV Specimen Urine Normal [facility] Comment on above: Performed By: #### 1 [id number] #### [facility] [address] [place] [address] UV Type of Service Technical Only Normal [facility] Comment on above: Performed By: #### 1 [id number] #### [facility] [address] [place] [address] Retail - Clinical Noteon Retail - Clinical Note [id number] Normal [facility] XR KNEE RT 4V or >on 023 [...] DEBORAH ZARAGOZA Date: 2022-06-30 17:38 Normal [facility] XR RIBS RT PA Fab 2 [...] SOCORRO SERRANO Date: 2022-05-25 14:51 Normal [facility] XR RIBS RT PA Fab 2 [...] atelectasis and small pleural effusion Normal [facility] CT CHEST WO CONon 04-18-2022 CT [...] SOCORRO BANSAL Date: 2022-04-18 16:17 Normal [facility] CULTURE URINEon 03-12-2022 CULTURE URINE Culture Observations : NO GROWTH. Normal [facility] Comment on above: Performed By: #### S ANA #### [facility] [address] [place] [address] Dr. Johnna Li 02-17-2022 L -- ---- Specimen: [id number] Received: 02/17/22 Status: ZACKERY Nails Num: [id number] Spec Type: Surgical Subm Dr: Lionel Carrington MD Tissues: A Urinary Bladder - biopsy (BLADDER TUMOR) Procedures: HE Stain/2, Gross/Micro L4, IHC First AB, IHC Add AB ---- Age/ Patient Sex Location Account Attending Physician ---- Mary Diaz/M PR [id number] Lionel Carrington MD ---- SPEC NUM: [id number] RECD: 02/17/22 STATUS: ZACKERY NAILS NUM: [id number] JOE: 02/17/22- DR: Lionel Carrington MD ENTERED: 02/17/[address]: SPEC TYPE: Surgical DEPT: S ORDERED: HE Stain/2, Gross/Micro L4, IHC First AB, IHC Add AB ORDERED: HE Stain/2, Gross/Micro L4, IHC First AB, IHC Add AB Supplemental Report Addendum 1 Entered: 02/27/22-1037 This case was sent to [facility] with their interpretation as follows: FINAL DIAGNOSIS Urinary bladder, transurethral resection - 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 Please see [facility] case ( [id number] ) for further details Addendum Signed (signature on file) Sanjiv Correa MD 02/27/22 1037 ---- ---- Specimen: [id number] Received: 02/17/22-028 Status: ZACKERY Nails Num: [id number] Spec Type: Surgical Subm Dr: Lionel Carrington MD Tissues: A Urinary Bladder - biopsy (BLADDER TUMOR) Procedures: HE Stain/2, Gross/Micro L4, IHC First AB, IHC Add AB ---- Patient: Mary Diaz [id number] (Continued) ---- Specimen: [id number] Received: 02/17/22 (Continued) Signed (signature on file) Doim Florez MD 02/18/221899 ---- Specimen: [id number] Received: 02/17/22 Status: ZACKERY Nails Num: [id number] Spec Type: Surgical Subm Dr: Lionel Carrington MD Tissues: A Urinary Bladder - biopsy (BLADDER TUMOR) Procedures: HE Stain/2, Gross/Micro L4, IHC First AB, IHC Add AB ---- Patient: Mary Diaz [id number] (Continued) ---- Specimen: [id number] Received: 02/17/22 (Continued) Pathological Diagnosis Urinary bladder, transurethral resection: - Urothelial proliferation with atypia in a poorly oriented specimen with cautery and crushed artifacts - Detrusor muscle/muscularis propria not present NOTE: This case will be sent to [facility] for consultation and a supplemental report with [...] P53 shows wild type pattern of expression. 23810, 15887, 40851 The use of one or more reagents in the above tests is regulated as an analyte specific reagent (ASR). The performance characteristics were determined by the Laboratory of [facility]. Immunohistochemistry assays have not been validated on decalcified tissue. Results should be interpreted with caution given the possibility of false negative results on decalcified specimens. They have not been cleared by the [place] Food and Drug Administration. The FDA has determined that such clearance or approval is not necessary. (more content not included)... Normal [facility] SARS-CoV-2 (COVID-19) RNA REX+probe Ql (Unsp spec) Negative Normal Negative [facility] Comment on above: Order Comment: Healt hcare Worker?: N Result Comment: Testing for SARS-CoV-2 by RT-PCR This test was developed and its performance characteristics determined by [employer]) and validated at the [facility]. This test has not been FDA cleared [...] is terminated or revoked sooner. PERFORMED BY: [place] [address] PATHOLOGIST DIRECTOR [employer] DOMI FLOREZ M.D. Performed By: #### C OVID 19 [facility] #### [address] COVID-19 Positive/NegativeOr dered By: Lionel Carrington on 02-13-2022 SARS-CoV-2 (COVID-19) N gene REX+probe Ql (Resp) Negative Negative [facility] Comment on above: Testing for SARS-CoV -2 by RT-PCR This test was developed and its performance characteristics determined by [employer] ([employer]) and validated at the [facility]. This test has not been FDA cleared [...] aPTT Coag (PPP) [Time] 34.8 s 25.1-36.5 [facility] Basic Metabolic Panelon 01-19 Calcium [Mass/Vol] 9.7 mg/dL Normal 8.2-10.2 [facility] Comment on above: Result Comment: PERF ORMED BY: [place] [address] PATHOLOGIST DIRECTOR [employer] DOMI FLOREZ M.D. Performed By: #### B MP, PTT, PT, CBC #### [address] Chloride [Moles/Vol] 99 mmol/L Normal 95-114 [facility] Comment on above: Performed By: #### B MP, PTT, PT, CBC #### [address] CO2 [Moles/Vol] 26.2 mmol/L Normal 22.0-30.0 [facility] Comment on above: Performed By: #### B MP, PTT, PT, CBC #### [address] Creatinine [Mass/Vol] 1.21 mg/dL Normal 0.64-1.27 [facility] Comment on above: Performed By: #### B MP, PTT, PT, CBC #### [place] [address] [place] Estimated GFR ( [place] > 60 [facility] Comment on above: Result Comment: GFR estimated reference range: According to KDOQI guidelines, <60 ml/min/1.73m2 is sufficient to diagnose a patient with chronic kidney disease. Performed By: #### B MP, PTT, PT, CBC #### [place] [address] [place] Estimated GFR (Non- Am 59 [facility] Comment on above: Performed By: #### B MP, PTT, PT, CBC #### [facility] [address] Glucose [Mass/Vol] 99 mg/dL Normal 70-100 [facility] Comment on above: Result Comment: [employer] Glucose Reference Range is dependent on time and content of last meal. Glucose of more than 200 mg/dL in a nonstressed, ambulatory subject supports the diagnosis of Diabetes Mellitus. ADA recommended reference range Performed By: #### B MP, PTT, PT, CBC #### [facility] [address] Potassium [Moles/Vol] 4.4 mmol/L Normal 3.5-5.1 [facility] Comment on above: Performed By: #### B MP, PTT, PT, CBC #### [facility] [address] Sodium [Moles/Vol] 135 mmol/L Low 136-146 [facility] Comment on above: Performed By: #### B MP, PTT, PT, CBC #### [facility] [address] Urea nitrogen [Mass/Vol] 20 mg/dL Normal 9-23 [facility] Comment on above: Performed By: #### B MP, PTT, PT, CBC #### [facility] [address] Basophils Auto (Bld) [#/Vol] Ordered By: Lionel Carrington on 02-06-2022 Basophils (Bld) [#/Vol] 0.0 10*3/uL 0.0-0.2 [facility] Basophils/100 WBC Auto (Bld) Ordered By: Lionel Carrington on 02-06-2022 Basophils/100 WBC (Bld) 0.8 % . [facility] Blood hemoglobin measurement (mass/volume)Ordered By: Lionel Carrington on 02-06-2022 Hemoglobin (Bld) [Mass/Vol] 13.2 g/dL 13.0-17.0 [facility] Blood leukocytes automated c ount (number/volume)Ordered By: Lionel Carrington on 02-06-2022 WBC (Bld) [#/Vol] 5.7 10*3/uL 4.5-11.0 [facility] Complete Blood Count Auto Di ffon 02-06-2022 Basophils (Bld) [#/Vol] 0.0 10*3/uL Normal 0.0-0.2 [facility] Comment on above: Result Comment: PERF ORMED BY: [place] [address] PATHOLOGIST DIRECTOR [employer] DOMI FLOREZ M.D. Performed By: #### B MP, PTT, PT, CBC #### [address] Basophils/100 WBC (Bld) 0.8 % Normal . [facility] Comment on above: Performed By: #### B MP, PTT, PT, CBC #### [address] Eosinophils (Bld) [#/Vol] 0.1 10*3/uL Normal 0.0-0.45 [facility] Comment on above: Performed By: #### B MP, PTT, PT, CBC #### [place] [address] [place] Eosinophils/100 WBC (Bld) 1.7 % Normal . [facility] Comment on above: Performed By: #### B MP, PTT, PT, CBC #### [facility] [address] [place] [address] Erythrocyte distribution width (RBC) [Ratio] 14.2 % Normal 12.0-14.8 [facility] Comment on above: Performed By: #### B MP, PTT, PT, CBC #### [facility] [address] [place] [address] [place] Hematocrit (Bld) [Volume fraction] 40.8 % Normal 38.8-50.0 [facility] Comment on above: Performed By: #### B MP, PTT, PT, CBC #### [facility] [address] [place] [address] Hemoglobin (Bld) [Mass/Vol] 13.2 g/dL Normal 13.0-17.0 [facility] Comment on above: Performed By: #### B MP, PTT, PT, CBC #### [address] Lymphocytes (Bld) [#/Vol] 1.6 10*3/uL Normal 1.00-4.8 [facility] Comment on above: Performed By: #### B MP, PTT, PT, CBC #### [address] Lymphocytes/100 WBC (Bld) 27.4 % Normal . [facility] Comment on above: Performed By: #### B MP, PTT, PT, CBC #### [address] MCH (RBC) [Entitic mass] 29.7 pg Normal 27.5-35.2 [facility] Comment on above: Performed By: #### B MP, PTT, PT, CBC #### [address] MCV (RBC) [Entitic vol] 91.6 fL Normal 83.5-101 [facility] Comment on above: Performed By: #### B MP, PTT, PT, CBC #### [address] Mean Corpuscular HGB Conc 32.4 g/dL Low 32.5-35.6 [facility] Comment on above: Performed By: #### B MP, PTT, PT, CBC #### [address] Monocytes (Bld) [#/Vol] 0.5 10*3/uL Normal 0.0-0.8 [facility] Comment on above: Performed By: #### B MP, PTT, PT, CBC #### [address] Monocytes/100 WBC (Bld) 8.7 % Normal . [facility] Comment on above: Performed By: #### B MP, PTT, PT, CBC #### [address] Neutrophils (Bld) [#/Vol] 3.5 10*3/uL Normal 1.8-7.7 [facility] Comment on above: Performed By: #### B MP, PTT, PT, CBC #### [facility] [address] Neutrophils/100 WBC (Bld) 61.4 % Normal . [facility] Comment on above: Performed By: #### B MP, PTT, PT, CBC #### [facility] [address] Nucleated RBC/100 WBC (Bld) [Ratio] 0.1 % Normal 0-0.5 [facility] Comment on above: Performed By: #### B MP, PTT, PT, CBC #### [address] Platelet mean volume (Bld) [Entitic vol] 8.4 fL Normal 6.6-10.1 [facility] Comment on above: Performed By: #### B MP, PTT, PT, CBC #### [address] Platelets (Bld) [#/Vol] 248 10*3/uL Normal 150-450 [facility] Comment on above: Performed By: #### B MP, PTT, PT, CBC #### [address] RBC (Bld) [#/Vol] 4.45 10*6/uL Normal 3.90-5.60 [facility] Comment on above: Performed By: #### B MP, PTT, PT, CBC #### [place] [address] [place] WBC (Bld) [#/Vol] 5.7 10*3/uL Normal 4.5-11.0 [facility] Comment on above: Performed By: #### B MP, PTT, PT, CBC #### [address] Creatinine and Glomerular fi ltration rate.predicted panel (S/P/Bld)Ordered By: Lionel Carrington on 02-06-2022 Creatinine [Mass/Vol] 1.21 mg/dL 0.64-1.27 [facility] Eosinophils Auto (Bld) [#/Vo l]Ordered By: Lionel Carrington on 02-06-2022 Eosinophils (Bld) [#/Vol] 0.1 10*3/uL 0.0-0.45 [facility] Eosinophils/100 WBC Auto (Bl d)Ordered By: Lionel Carrington on 02-06-2022 Eosinophils/100 WBC (Bld) 1.7 % . [facility] Erythrocyte distribution wid th Auto (RBC) [Ratio]Ordered By: Lionel Carrington on 02-06-2022 Erythrocyte distribution width (RBC) [Ratio] 14.2 % 12.0-14.8 [facility] Estimated glomerular filtrat ion rate (GFR) non- AmericanOrdered By: Lionel Carrington on 02-06-2022 GFR/1.73 sq M.predicted among non-blacks MDRD (S/P/Bld) [Vol rate/Area] 59 mL/Min [facility] Hematocrit Auto (Bld) [Volum e fraction]Ordered By: Lionel Carrington on 02-06-2022 Hematocrit (Bld) [Volume fraction] 40.8 % 38.8-50.0 [facility] - CoagulationOrde red By: Lionel Carrington on 02-06-2022 PT Coag (PPP) [Time] 11.0 s 9.0-12.9 [facility] - Hematology and Cell countsOrdered By: Lionel Carrington on 02-06-2022 Nucleated RBC/100 WBC (Bld) [Ratio] 0.1 % 0-0.5 [facility] Lymphocytes Auto (Bld) [#/Vo l]Ordered By: Lionel Carrington on 02-06-2022 Lymphocytes (Bld) [#/Vol] 1.6 10*3/uL 1.00-4.8 [facility] Lymphocytes/100 WBC Auto (Bl d)Ordered By: Lionel Carrington on 02-06-2022 Lymphocytes/100 WBC (Bld) 27.4 % . [facility] MCH Auto (RBC) [Entitic mass ]Ordered By: Lionel Carrington on 02-06-2022 MCH (RBC) [Entitic mass] 29.7 pg 27.5-35.2 [facility] MCHC Auto (RBC) [Mass/Vol]Or dered By: Lionel Carrington on 02-06-2022 MCHC (RBC) [Mass/Vol] 32.4 g/dL 32.5-35.6 [facility] MCV Auto (RBC) [Entitic vol] Ordered By: Lionel Carrington on 02-06-2022 MCV (RBC) [Entitic vol] 91.6 fL 83.5-101 [facility] Monocytes Auto (Bld) [#/Vol] Ordered By: Lionel Carrington on 02-06-2022 Monocytes (Bld) [#/Vol] 0.5 10*3/uL 0.0-0.8 [facility] Monocytes/100 WBC Auto (Bld) Ordered By: Lionel Carrington on 02-06-2022 Monocytes/100 WBC (Bld) 8.7 % . [facility] Neutrophils Auto (Bld) [#/Vo l]Ordered By: Lionel Carrington on 02-06-2022 Neutrophils (Bld) [#/Vol] 3.5 10*3/uL 1.8-7.7 [facility] Neutrophils/100 WBC Auto (Bl d)Ordered By: Lionel Carrington on 02-06-2022 Neutrophils/100 WBC (Bld) 61.4 % . [facility] No Panel InformationOrdered By: Lionel Carrington on 02-06-2022 Estimated GFR () > 60 mL/Min [facility] Comment on above: GFR estimated refere nce range: According to KDOQI guidelines, <60 ml/min/1.73m2 is sufficient to diagnose a patient with chronic kidney disease. Pharmacy Creatinine Clearance (Chem N/A [facility] Partial Thromboplastin Timeo n 02-06-2022 aPTT Coag (Bld) [Time] 34.8 s Normal 25.1-36.5 [facility] Comment on above: Result Comment: PERF ORMED BY: [facility] [address] [place] [address] PATHOLOGIST DIRECTOR [employer] DOMI FLOREZ M.D. Performed By: #### B MP, PTT, PT, CBC #### [facility] [address] Platelet mean volume Auto (B ld) [Entitic vol]Ordered By: Lionel Carrington on 02-06-2022 Platelet mean volume (Bld) [Entitic vol] 8.4 fL 6.6-10.1 [facility] Platelet poor plasma interna tional normalized ratio (INR) by coagulation assay (relatOrdered By: Lionel Carrington on 02-06-2022 INR Coag (PPP) [Relative time] 1.0 {INR} [facility] Comment on above: INR Therapeutic Rang e [...] 02-06-2022 Platelets (Bld) [#/Vol] 248 10*3/uL 150-450 [facility] Prothrombin Time INRon 02-06 INR Coag (PPP) [Relative time] 1.0 {INR} Normal [facility] Comment on above: Result Comment: INR Therapeutic [...] #### B MP, PTT, PT, CBC #### [facility] [address] PT Coag (PPP) [Time] 11.0 s Normal 9.0-12.9 [facility] Comment on above: Performed By: #### B MP, PTT, PT, CBC #### [facility] [address] RBC Auto (Bld) [#/Vol]Ordere d By: Lionel Carrington on 02-06-2022 RBC (Bld) [#/Vol] 4.45 10*6/uL 3.90-5.60 [facility] Serum or plasma calcium eliezer urement (mass/volume)Ordered By: Lionel Carrington on 02-06-2022 Calcium [Mass/Vol] 9.7 mg/dL 8.2-10.2 [facility] Serum or plasma chloride sammy surement (moles/volume)Ordered By: Lionel Carrington on 02-06-2022 Chloride [Moles/Vol] 99 mmol/L 95-114 [facility] Serum or plasma glucose eliezer urement (mass/volume)Ordered By: Lionel Carrington on 02-06-2022 Glucose [Mass/Vol] 99 mg/dL 70-100 [facility] Comment on above: ADA recommended refe rence range Random Glucose Reference Range is dependent on time and content of last meal. Glucose of more than 200 mg/dL in a nonstressed, ambulatory subject supports the diagnosis of Diabetes Mellitus. Serum or plasma potassium me asurement (moles/volume)Ordered By: Lionel Carrington on 02-06-2022 Potassium [Moles/Vol] 4.4 mmol/L 3.5-5.1 [facility] Serum or plasma sodium measu rement (moles/volume)Ordered By: Lionel Carrington on 02-06-2022 Sodium [Moles/Vol] 135 mmol/L 136-146 [facility] Serum or plasma total carbon dioxide measurement (moles/volume)Ordered By: Lionel Carrington on 02-06-2022 CO2 [Moles/Vol] 26.2 mmol/L 22.0-30.0 [facility] Serum or plasma urea nitroge n measurement (mass/volume)Ordered By: Lionel Carrington on 02-06-2022 Urea nitrogen [Mass/Vol] 20 mg/dL 9-23 [facility] COVID-19 Positive/NegativeOr dered By: Lionel Carrington on 10-27-2021 SARS-CoV-2 (COVID-19) N gene REX+probe Ql (Resp) Negative Negative [facility] Comment on above: Testing for SARS-CoV -2 by RT-PCR This test was developed and its performance characteristics determined by [employer] ([employer]) and validated at the [facility]. This test has not been FDA cleared [...] aPTT Coag (PPP) [Time] 36.2 s 25.1-36.5 [facility] Basophils Auto (Bld) [#/Vol] Ordered By: Lionel Carrington on 10-17-2021 Basophils (Bld) [#/Vol] 0.0 10*3/uL 0.0-0.2 [facility] Basophils/100 WBC Auto (Bld) Ordered By: Lionel Carrington on 10-17-2021 Basophils/100 WBC (Bld) 0.6 % [facility] Blood hemoglobin measurement (mass/volume)Ordered By: Lionel Carrington on 10-17-2021 Hemoglobin (Bld) [Mass/Vol] 13.6 g/dL 13.0-17.0 [facility] Blood leukocytes automated c ount (number/volume)Ordered By: Lionel Carrington 10-17-2021 WBC (Bld) [#/Vol] 5.9 10*3/uL 4.5-11.0 [facility] Creatinine and Glomerular fi ltration rate.predicted panel (S/P/Bld)Ordered By: Lionel Carrington on 10-17-2021 Creatinine [Mass/Vol] 0.96 mg/dL 0.64-1.27 [facility] Eosinophils Auto (Bld) [#/Vo l]Ordered By: Lionel Carrington on 10-17-2021 Eosinophils (Bld) [#/Vol] 0.1 10*3/uL 0.0-0.45 [facility] Eosinophils/100 WBC Auto (Bl d)Ordered By: Lionel Carrington on 10-17-2021 Eosinophils/100 WBC (Bld) 2.0 % [facility] Erythrocyte distribution wid th Auto (RBC) [Ratio]Ordered By: Lionel Carrington on 10-17-2021 Erythrocyte distribution width (RBC) [Ratio] 14.5 % 12.0-14.8 [facility] Estimated glomerular filtrat ion rate (GFR) non- AmericanOrdered By: Lionel Carrington on 10-17-2021 GFR/1.73 sq M.predicted among non-blacks MDRD (S/P/Bld) [Vol rate/Area] > 60 mL/Min [facility] Hematocrit Auto (Bld) [Volum e fraction]Ordered By: Lionel Carrington on 10-17-2021 Hematocrit (Bld) [Volume fraction] 41.5 % 38.8-50.0 [facility] Laboratory - CoagulationOrde red By: Lionel Carrington on 10-17-2021 PT Coag (PPP) [Time] 11.0 s 9.0-12.9 [facility] Laboratory - Hematology and Cell countsOrdered By: Lionel Carrington on 10-17-2021 Nucleated RBC/100 WBC (Bld) [Ratio] 0.0 % 0-0.5 [facility] Lymphocytes Auto (Bld) [#/Vo l]Ordered By: Lionel Carrington on 10-17-2021 Lymphocytes (Bld) [#/Vol] 1.6 10*3/uL 1.00-4.8 [facility] Lymphocytes/100 WBC Auto (Bl d)Ordered By: Lionel Carrington on 10-17-2021 Lymphocytes/100 WBC (Bld) 26.8 % [facility] MCH Auto (RBC) [Entitic mass ]Ordered By: Lionel Carrington on 10-17-2021 MCH (RBC) [Entitic mass] 29.3 pg 27.5-35.2 [facility] MCHC Auto (RBC) [Mass/Vol]Or dered By: Lionel Carrington on 10-17-2021 MCHC (RBC) [Mass/Vol] 32.7 g/dL 32.5-35.6 [facility] MCV Auto (RBC) [Entitic vol] Ordered By: Lionel Carrington on 10-17-2021 MCV (RBC) [Entitic vol] 89.8 fL 83.5-101 [facility] Monocytes Auto (Bld) [#/Vol] Ordered By: Lionel Carrington on 10-17-2021 Monocytes (Bld) [#/Vol] 0.6 10*3/uL 0.0-0.8 [facility] Monocytes/100 WBC Auto (Bld) Ordered By: Lionel Carrington on 10-17-2021 Monocytes/100 WBC (Bld) 10.6 % [facility] Neutrophils Auto (Bld) [#/Vo l]Ordered By: Lionel Carrington on 10-17-2021 Neutrophils (Bld) [#/Vol] 3.5 10*3/uL 1.8-7.7 [facility] Neutrophils/100 WBC Auto (Bl d)Ordered By: Lionel Carrington on 10-17-2021 Neutrophils/100 WBC (Bld) 60.0 % [facility] No Panel InformationOrdered By: Lionel Carrington on 10-17-2021 Estimated GFR () > 60 mL/Min [facility] Comment on above: GFR estimated refere nce range: According to KDOQI guidelines, <60 ml/min/1.73m2 is sufficient to diagnose a patient with chronic kidney disease. Pharmacy Creatinine Clearance (Chem N/A [facility] Platelet mean volume Auto (B ld) [Entitic vol]Ordered By: Lionel Carrington on 10-17-2021 Platelet mean volume (Bld) [Entitic vol] 8.3 fL 6.6-10.1 [facility] Platelet poor plasma interna tional normalized ratio (INR) by coagulation assay (relatOrdered By: Lionel Carrington on 10-17-2021 INR Coag (PPP) [Relative time] 1.0 {INR} [facility] Comment on above: INR Therapeutic Rang e [...] 10-17-2021 Platelets (Bld) [#/Vol] 249 10*3/uL 150-450 [facility] RBC Auto (Bld) [#/Vol]Ordere d By: Lionel Carrington on 10-17-2021 RBC (Bld) [#/Vol] 4.62 10*6/uL 3.90-5.60 [facility] Serum or plasma calcium eliezer urement (mass/volume)Ordered By: Lionel Carrington on 10-17-2021 Calcium [Mass/Vol] 9.7 mg/dL 8.2-10.2 [facility] Serum or plasma chloride sammy surement (moles/volume)Ordered By: Lionel Carrington on 10-17-2021 Chloride [Moles/Vol] 101 mmol/L 95-114 [facility] Serum or plasma glucose eliezer urement (mass/volume)Ordered By: Lionel Carrington on 10-17-2021 Glucose [Mass/Vol] 87 mg/dL 70-100 [facility] Comment on above: ADA recommended refe rence range Random Glucose Reference Range is dependent on time and content of last meal. Glucose of more than 200 mg/dL in a nonstressed, ambulatory subject supports the diagnosis of Diabetes Mellitus. Serum or plasma potassium me asurement (moles/volume)Ordered By: Lionel Carrington on 10-17-2021 Potassium [Moles/Vol] 4.4 mmol/L 3.5-5.1 [facility] Serum or plasma sodium measu rement (moles/volume)Ordered By: Lionel Carrington on 10-17-2021 Sodium [Moles/Vol] 136 mmol/L 136-146 [facility] Serum or plasma total carbon dioxide measurement (moles/volume)Ordered By: Lionel Carrington on 10-17-2021 CO2 [Moles/Vol] 25.6 mmol/L 22.0-30.0 [facility] Serum or plasma urea nitroge n measurement (mass/volume)Ordered By: Lionel Carrington on 10-17-2021 Urea nitrogen [Mass/Vol] 18 mg/dL 03-13 [facility] Vital Signs Date Time Vital Sign Value Performing Clinician Facility 02-10-2023 14:16-0400 Blood Pressure Location [facility] [place] 02-10-2023 14:16-0400 Diastolic blood pressure 80 mm[Hg] [facility] [place] 02-10-2023 14:16-0400 Heart rate 70 /min [facility] [place] 02-10-2023 14:16-0400 Respiratory rate 16 /min [facility] [place] 02-10-2023 14:16-0400 Systolic blood pressure 124 mm[Hg] [facility] 12-03-2022 10:20-0400 Body height 182.88 cm Zoran Chavez Other [employer] Other 12-03-2022 10:20-0400 Body mass index (BMI) [Ratio] 25.49 kg/m2 Zoran Chavez Other [employer] Other 12-03-2022 10:20-0400 Body weight 85.28 kg Zoran Chavez Other [employer] Other 10-22-2022 10:20-0400 Body height 182.88 cm Zoran Chavez Other [employer] Other 10-22-2022 10:20-0400 Body mass index (BMI) [Ratio] 25.63 kg/m2 Zoran Chavez Other [employer] Other 10-22-2022 10:20-0400 Body weight 85.73 kg Zoran Chavez Other [facility] Other 10-22-2022 10:20-0400 Diastolic blood pressure 80 mm[Hg] Zoran Chavez Other [facility] Other 10-22-2022 10:20-0400 Systolic blood pressure 110 mm[Hg] Zoran Chavez Other [facility] Other 02-24-2022 10:43-0400 Blood Pressure Location Lionel CARRINGTON [facility] 02-24-2022 10:43-0400 Diastolic blood pressure 80 mm[Hg] Lioneljameel CARRINGTON [facility] 02-24-2022 10:43-0400 Heart rate 65 /min Lionel CARRINGTON [facility] 02-24-2022 10:43-0400 Respiratory rate 16 /min Lionel CARRINGTON [facility] 02-24-2022 10:43-0400 Systolic blood pressure 140 mm[Hg] Lionel CARRINGTON [facility] 02-17-2022 15:15-0400 Diastolic blood pressure 83 mm[Hg] MD Yolande Staley Work Phone: [facility] 02-17-2022 15:15-0400 Heart rate 58 /min MD Yolande Staley Work Phone: [facility] 02-17-2022 15:15-0400 Respiratory rate 16 /min MD Yolande Staley Work Phone: [facility] 02-17-2022 15:15-0400 SaO2% (BldA) [Mass fraction] 95 % MD Yolande Staley Work Phone: [facility] 02-17-2022 15:15-0400 Systolic blood pressure 166 mm[Hg] MD Yolande Staley Work Phone: [facility] 02-17-2022 14:30-0400 Body height 182.88 cm MD Yolande Staley Work Phone: [facility] 02-17-2022 14:30-0400 Body mass index (BMI) [Ratio] 26.2 kg/m2 MD Yolande Staley Work Phone: [facility] 02-17-2022 14:30-0400 Body weight 87.7 kg MD Yolande Staley Work Phone: [facility] 02-17-2022 14:17-0400 Body temperature 97.6 [degF] MD Yolande Staley Work Phone: [facility] 02-17-2022 13:52-0400 Inhaled oxygen flow rate 10 L/min MD Yolande Staley Work Phone: [facility] 10-17-2021 11:42-0400 Body height 180.34 cm MD Yolande Staley Work Phone: [facility] 10-17-2021 11:42-0400 Body mass index (BMI) [Ratio] 27 kg/m2 MD Yolande Staley Work Phone: [facility] 10-17-2021 11:42-0400 Body temperature 98.4 [degF] MD Yolande Staley Work Phone: [facility] 10-17-2021 11:42-0400 Body weight 88 kg MD Yolande Staley Work Phone: [facility] 10-17-2021 11:42-0400 Diastolic blood pressure 90 mm[Hg] MD Yolande Staley Work Phone: [facility] 10-17-2021 11:42-0400 Heart rate 64 /min MD Yolande Staley Work Phone: [facility] 10-17-2021 11:42-0400 SaO2% (BldA) [Mass fraction] 100 % MD Yolande Staley Work Phone: [facility] 10-17-2021 11:42-040 Systolic blood pressure 172 mm[Hg] MD Yolande Staley Work Phone: [facility] Encounters Encounter Date Encounter Type Care Provider Facility Start: 04-27-2023 End: 04-28-2023 ambulatory Lionel CARRINGTON Facility[facility] Start: 04-27-2023 End: 04-27-2023 Patient encounter procedure Lionel CARRINGTON [facility] Start: 03-10-2023 End: 03-11-2023 ambulatory Qamar R NILL Facility:CD:[id number] Start: 02-10-2023 End: 02-11-2023 ambulatory Qamar R NILL [facility] Start: 02-10-2023 End: 02-10-2023 Patient encounter procedure Qamar R NILL [facility] [place] Start: 01-20-2023 End: 01-21-2023 ambulatory Lionel CARRINGTON Facility:[facility] [place] Start: 01-14-2023 End: 01-15-2023 ambulatory Lionel CARRINGTON Facility:CD:[id number] Start: 01-05-2023 End: 01-06-2023 ambulatory Lionel CARRINGTON Facility:[facility] Start: 01-05-2023 End: 01-05-2023 Patient encounter procedure Lionel CARRINGTON [facility] Start: 01-01-2023 End: 01-01-2023 ambulatory Yolande Staley Facility:[facility] Start: 01-01-2023 End: 01-01-2023 ambulatory MD Yolande Staley Work Phone: [facility] Work Phone: Start: 01-01-2023 End: 01-01-2023 Patient encounter procedure MD Yolande Staley Work Phone: [facility] [place] Work Phone: Start: 12-28-2022 End: 12-29-2022 ambulatory Tamiko Osman MD Facility:[facility] [place] Start: 12-14-2022 End: 12-15-2022 ambulatory Tamiko Osman MD Facility:[facility] [place] Start: 12-03-2022 End: 12-03-2022 ambulatory Zoran Chavez Other [employer] Other Start: 12-03-2022 Office outpatient visit 15 minutes Zoran Chavez [facility] Start: 11-20-2022 End: 11-21-2022 ambulatory ROMELRIUS OSMAN Facility:[facility] Start: 10-28-2022 End: 10-29-[address] NELLY HERRERA Facility:[facility] Start: 10-27-2022 End: 11-18-[address] ZORAN CHAVEZ Facility:[facility] Start: 10-23-2022 End: 10-24-[address] ZORAN CHAVEZ Facility:[facility] Start: 10-22-2022 End: 10-22-2022 ambulatory Zoran Chavez Other [employer] Other Start: 10-22-2022 Office outpatient visit 15 minutes Zoran Chavez [facility] Start: 10-05-2022 End: 10-06-[address] YOLANDE STALEY . Facility:[facility] Start: 09-29-2022 End: 09-30-2022 ambulatory Lionel CARRINGTON Facility:[facility] Start: 09-24-2022 End: 09-25-[address] YOLANDE STALEY . Facility:[facility] Start: 09-21-2022 End: 09-22-[address] LIONEL CARRINGTON . Facility:[facility] Start: 09-21-2022 End: 09-22-2022 ambulatory Lionel CARRINGTON Facility: [place] Start: 09-21-2022 End: 09-21-2022 Patient encounter procedure Lionel CARRINGTON [facility] Start: 08-19-2022 End: 08-20-[address] LIONEL CARRINGTON . Facility: Start: 08-17-2022 End: 08-18-2022 ambulatory Lionel CARRINGTON Facility:[facility] Start: 08-17-2022 End: 08-17-2022 Patient encounter procedure Lionel CARRINGTON [facility] Start: 08-04-2022 End: 08-05-[address] YOLANDE STALEY . Facility:[facility] Start: 07-28-2022 End: 07-29-[address] YOLANDE STALEY . Facility:[facility] Start: 07-23-2022 End: 07-23-[address] LIONEL CARRINGTON . Facility:[facility] Start: 07-20-2022 End: 07-21-2022 ambulatory Lionel CARRINGTON Facility:[facility] Start: 07-20-2022 End: 07-20-2022 Patient encounter procedure Lionel CARRINGTON [facility] Start: 07-07-2022 End: 07-08-2022 ambulatory Lionel CARRINGTON Facility:[facility] Start: 07-07-2022 End: 07-07-2022 Patient encounter procedure Lionel CARRINGTON [facility] Start: 06-30-2022 End: 07-01-[address] YOLANDE STALEY . Facility:[facility] Start: 06-04-2022 End: 06-04-[address] YOLANDE STALEY . Facility:[facility] Start: 05-25-2022 End: 05-26-[address] YOLANDE STALEY . Facility:[facility] Start: 05-18-2022 End: 05-18-2022 Patient encounter procedure Lionel CARRINGTON [facility] Start: 04-27-2022 End: 04-28-[address] YOLANDE STALEY . Facility:[facility] Start: 04-18-2022 End: 04-18-[address] FELICIA GALDAMEZ . Facility:[facility] Start: 04-15-2022 End: 04-15-2022 Patient encounter procedure Lionel CARRINGTON [facility] Start: 03-26-2022 End: 03-26-[address] LIONEL CARRINGTON . Facility:[facility] Start: 03-12-2022 End: 03-13-[address] YOLANDE STALEY . Facility:[facility] Start: 03-09-2022 End: 03-09-2022 Patient encounter procedure Lionel CARRINGTON [facility] Start: 02-27-2022 End: 02-27-2022 Lab Drop off Lionel CARRINGTON [facility] Start: 02-27-2022 End: 02-27-2022 Patient encounter procedure Lionel CARRINGTON [facility] Start: 02-24-2022 End: 02-24-2022 Patient encounter procedure Lionel CARRINGTON [facility] Start: 02-17-2022 End: 02-17-2022 ambulatory Lionel Carrington Facility:[facility] Start: 02-17-2022 End: 02-17-2022 Admission to same day surgery center MD Yolande Staley Work Phone: [facility] [place] [facility] [place] Start: 02-13-2022 End: 02-13-2022 ambulatory Lionel Carrington Facility:[facility] Start: 02-13-2022 End: 02-13-2022 Patient encounter procedure MD Yolande Staley Work Phone: [facility] Start: 02-06-2022 End: 02-06-2022 ambulatory Lionel Carrington Facility:[facility] Start: 02-06-2022 End: 02-06-2022 Patient encounter procedure MD Yolande Staley Work Phone: [facility] Start: 11-11-2021 End: 11-11-2021 Patient encounter procedure Lionel Burgos CARRINGTON [facility] Start: 11-05-2021 End: 11-05-2021 Patient encounter procedure Lionel Burgos C[facility] [place] Start: 10-29-2021 End: 10-29-2021 Admission to same day surgery center MD Yolande Staley Work Phone: [facility] [place] Start: 10-27-2021 End: 10-27-2021 Patient encounter procedure MD Yolande Staley Work Phone: [facility] Start: 10-17-2021 End: 10-17-2021 Patient encounter procedure MD Yolande Staley Work Phone: [facility] Procedures Date Procedure Procedure Detail Performing Clinician Start: 01-01-2023 MR lumbar spine wo con MD Yolande Staley Work Phone: Start: 09-21-[address] NELLY HERRERA Comment on above: Performed By: #### P SAD #### [facility] [address] [place] [address] Dr. Johnna Dixon Start: 02-17-2022 Transurethral resect [...] CARRINGTON Comment on above: had recently at [facility] Start: 05-21-2014 Colonoscopy Qamar DOSS Start: 06-21-2010 Complete repair of r otator cuff Lionel CARRINGTON Comment on above: right Start: 06-21-1998 Shoulder reconstruction Lionel CARRINGTON Comment on above: left possibly a scre w in there per pt Start: 06-21-1964 Appendectomy Lionel KEELY STERLING Arthroplasty of the ankle Jose Alfredo henderson DEVONTE Comment on above: 1990 [facility]throsc[facility] Plan of Treatment Date Care Activity Detail Author Start: 10-04-2023 ambulatory Ambulatory Facility:[facility] Start: 02-17-2022 End: 02-17-2022 [facility] Work Phone: Start: 02-17-2022 Transurethral resect ion of bladder neoplasm OR Cysto/TURBT/Bladder Biopsy/Fulg (Not Applicable) [facility] Start: 02-17-2022 End: 02-17-2022 Admission to same day surgery center Departed Surgical Day Care [facility] [place] Start: 02-13-2022 End: 02-13-2022 Patient encounter procedure Departed Clinical [facility] B[facility]-Sbh-Ucqsqvbw Testing Patient referral [facility] Work Phone: Immunizations Immunization Date Immunization Notes Care Provider [facility] 04-16-2022 SARS-CoV-2 (COVID-19 ) [id number] Qamar SMITH [facility] 03-27-2022 influenza virus vacc ine, unspecified formulation Qamar SMITH [facility] 05-06-2021 COVID-19 mRNA-1273 (Moderna) MD Yolande Staley Work Phone: [facility] 09-19-2020 COVID-19 mRNA-1273 (Moderna) MD Yolande Staley Work Phone: [facility] Comment on above: Result Comment: 2022: [id number] 08-22-2020 COVID-19 mRNA-1273 (Moderna) MD Yolande Staley Work Phone: [facility] Comment on above: Result Comment: 2022: [id number] 06-21-2020 SARS-CoV-2 (COVID-19 ) mRNA-1273 vaccine Lionel CARRINGTON [facility] 05-23-2020 influenza virus vacc ine, unspecified formulation [facility] 04-03-2020 influenza virus vacc ine, unspecified formulation [facility] 05-29-2019 influenza virus vacc ine, unspecified formulation [facility] 04-14-2019 influenza, unspecifi ed formulation [facility] 09-26-2018 tetanus and diphther ia toxoids, adsorbed, preservative free, for adult use (2 Lf of tetanus toxoid and 2 Lf of diphtheria toxoid) [facility] 10-11-2017 pneumococcal polysaccharide vaccine, 23 valent [facility] 07-22-2016 pneumococcal conjuga te vaccine, 13 valent [facility] 06-29-2013 tetanus toxoid, redu mirtha diphtheria toxoid, and acellular pertussis vaccine, adsorbed [facility] 03-10-2000 Td(adult) unspecifie d formulation [facility] Payers Date Payer Category Payer Unknown 2022 Self-pay [id number] 1958 Medicare [id number] 1958 Unknown [id number] 2.16.840.1.039287.19 1950 Unknown [id number] 2.16.840.1.384080.3.579.2. 593 1951 Unknown [id number] 2.16.840.1.009409.3.579.2. 593 1951 Unknown [id number] 2.16.840.1.550900.3.579.2. 593 1951 Unknown [id number] 2.16.840.1.008175.3.579.2. 593 1951 Unknown [id number] 2.16.840.1.531965.3.579.2. 593 1951 Unknown [id number] 2.16.840.1.129176.3.579.2. 593 1951 Unknown [id number] 2.16.840.1.260931.3.579.2. 593 1951 Unknown [id number] 2.16.840.1.990454.3.579.2. 593 1951 Unknown [id number] 2.16.840.1.399635.3.579.2. 593 1951 Unknown [id number] 2.16.840.1.409837.3.579.2. 593 1951 Unknown [id number] 2.16.840.1.490686.3.579.2. 593 1951 Unknown [id number] 2.16.840.1.669246.3.579.2. 593 1951 Unknown [id number] 2.16.840.1.732547.3.579.2. 593 1951 Unknown [id number] 2.16.840.1.708537.3.579.2. 593 1951 Unknown [id number] 2.16.840.1.548532.3.579.2. 593 1951 Unknown [id number] 2.16.840.1.914268.3.579.2. 593 1951 Unknown [id number] 2.16.840.1.524368.3.579.2. 593 1951 Unknown [id number] 2.16.840.1.561522.3.579.2. 593 1951 Unknown [id number] 2.16.840.1.486717.3.579.2. 593 1951 Unknown [id number] 2.16.840.1.632270.3.579.2. 196 1951 Unknown [id number] 2.16.840.1.829398.3.579.2. 196 1951 Unknown [id number] 2.16.840.1.863735.3.579.2. 196 1951 Unknown [id number] 2.16.840.1.228211.3.579.2. 727 1951 Unknown [id number] 2.16.840.1.835691.3.579.2. 727 1951 Unknown [id number] 2.16.840.1.990815.3.579.2. 727 1951 Unknown [id number] 2.16.840.1.010897.3.579.2. 727 1951 Unknown [id number] 2.16.840.1.056022.3.579.2. 727 1951 Unknown [id number] 2.16.840.1.519013.3.579.2. 727 1951 Unknown [id number] 2.16.840.1.119891.3.579.2. 727 1951 Unknown [id number] 2.16.840.1.706586.3.579.2. 727 1951 Unknown [id number] 2.16.840.1.952680.3.579.2. 727 1951 Unknown [id number] 2.16.840.1.546085.3.579.2. 727 1951 Unknown [id number] 2.16.840.1.415513.3.579.2. 727 1951 Unknown [id number] 2.16.840.1.737818.3.579.2. 727 1951 Unknown [id number] 2.16.840.1.640410.3.579.2. 727 1951 Unknown [id number] 2.840.1.111991.3.579.2. 727 Medicare Medicare [id number] Private Health Insurance [id number] Unknown [place] [id number] Unknown [id number] 2840.1.951868.3.579.2. 531 Unknown [id number] 08.06.830.1.002703.3.579.2. 531 Unknown [id number] 20.1.021064.3.579.2. 531 Unknown [id number] 20.1.259884.3.579.2. 531 Social History Date Type Detail Facility Start: 10-17-2021 End: 02-10-2023 Tobacco smoking status NHIS Ex-smoker (finding) [facility] Comment on above: pt quit smoking 10+ yrs ago Start: 1950 Sex Assigned At Male F [facility] Start: 11-05-2021 Tobacco smoking status Never s moked tobacco (finding) [facility] Tobacco smoking status Never [facility] Comment on above: pt quit smoking 10+ yrs ago Sex Assigned At Male [facility] Medical Equipment Procedure Code Equipment Code Equipment Original Text Equipment Identifier Dates Transurethral resection of bladder tumor (TURBT) with cystoscopy Polymeric ureteral stent ()[id number] FDA Start: 10-29-2021 Decompression, spine, cervical, posterior approach Bone-screw internal spinal fixation system, non-sterile ()[id number] FDA Start: 04-18-2020 Decompression, spine, cervical, posterior approach Bone-screw internal spinal fixation system, non-sterile ()[id number] FDA Start: 04-18-2020 Decompression, spine, cervical, posterior approach Bone-screw internal spinal fixation system, non-sterile ()[id number] FDA Start: 04-18-2020 Decompression, spine, cervical, posterior approach Bone-screw internal spinal fixation system, non-sterile ()[id number] FDA Start: 04-18-2020 Decompression, spine, cervical, posterior approach Bone-screw internal spinal fixation system, non-sterile ()[id number] FDA Start: 04-18-2020 Goals Date Patient Goal Desired Activity /State Functional Status Date Assessment Result Facility 04-27-2023 Functional Status N/A [facility] 02-10-2023 Functional Status N/A [facility] 01-05-2023 Functional Status N/A [facility] 02-24-2022 Functional Status N/A [facility] Clinical Notes 11-04-2021 to 04-27-2023 Note Date & Type Note Facility 04-27-2023 Note [id number]#1.00TIFF [facility] 04-27-2023 Hospital Discharge instructions Patient Education 04/27/2023 [...] CARRINGTON Address: [facility] [address] [place] [address]- Business (1) When: Unknown Comments:Office will call to schedule follow up [facility] 04-27-2023 Note Custom Cystoscopy ? Voiding [...] you have a fever over 100 degrees. [facility] 02-10-2023 Note Chief Complaint consultation for surveillance [...] Cervical vertebral fu (more content not included)... [facility] Comment on above: Result Comment: Elec tronically Signed By: LUIS NOBLE, Qamar Ernandez\Date and Time Signed: 02/10/23 15:05 EDT 01-05-2023 Note [id number]#1.00CD:127 [facility] 01-05-2023 Hospital Discharge instructions Patient Education 01/05/2023 [...] [facility] [address], [place] [address] Business (1) When: Unknown Comments:Office will call to schedule follow up [facility] 01-05-2023 Note Custom Cystoscopy ? Voiding [...] you have a fever over 100 degrees. [facility] 12-03-2022 Evaluation note Encounter Date Diagnosis Assessment [...] M46.1) Nov, Neurogenic claudication (ICD-10 - R29.818) [facility] [facility] Other 05-04-2023 Evaluation note* Encounter Date Diagnosis [...] spine October, Neurogenic claudication (ICD-10 - R29.818) [employer] [facility] Other 04-11-2023 Note [id number]:127[facility] 09-29-2022 NoteCustom Cystoscopy ? Voiding after [...] if you have a fever over 100 degrees.[facility] 09-21-2022 Hospital Discharge instructions Patient Education 09/21/2022 [...] if anything looks unusual. Men with a sltwqk-bmun-sbpwva risk for skin cancer may want to see a interlibrary loan specialist (white lead filterer) for an annual body check. Where to find more information National Cancer Helen: https://www.cancer.gov/about-cancer/screening Centers for Disease Control and Prevention: https://www.cdc.gov/cancer/dcpc/prevention/screening.htm Citizen [place] Cancer Society: https://www.cancer.org/latest-news/9-gdfdbm-iicbmufwf-nrsrw-xeg-iwv.html Contact a health care provider if: You [...] 03/04/2017 Document Revised: 02/24/2019 Document Reviewed: 03/04/2017 [employer] Patient Education 2020 [employer]. Follow Up Care 09/19/2021 11:05:08 With:DEVONTE NOBLE, Lionel Burgos, URL Address: [facility] [address] [place] [address]- When: Unknown [facility] 01-18-2023 Note [id number]:127[facility] 07-07-2022 Hospital Discharge instructions Patient Education [...] Address: [facility] [address] [place] [address]- Business (1) When: Unknown Comments:Office will call to schedule follow up [facility]01-17-2023 NoteCustom Cystoscopy ? Voiding after the [...] if you have a fever over 100 degrees.[facility] 02-24-2022 Hospital Discharge instructions Patient Education 02/24/2022 [...] if anything looks unusual. Men with a vgosgi-ahtn-hfpeky risk for skin cancer may want to see a interlibrary loan specialist (white lead filterer) for an annual body check. Where to find more information National Cancer Helen: https://www.cancer.gov/about-cancer/screening Centers for Disease Control and Prevention: https://www.cdc.gov/cancer/dcpc/prevention/screening.htm Citizen Of [place] Cancer Society: https://www.cancer.org/latest-news/4-dlbpnq-oxzzeagpj-lozvt-vjo-kbs.html Contact a health care provider if: You [...] 03/04/2017 Document Revised: 02/24/2019 Document Reviewed: 03/04/2017 Digital Performance Patient Education 2020 [employer]ved[employer] Follow Up Care 02/05/2022 13:48:40 With:DEVONTE NOBLE, Lionel Burgos, [place] Address: [facility] [address] , [place] [phone] When: Unknown [facility] 05-24-2022 Hospital Discharge instructions Patient Education [...] Address: [facility] [address] [place] [address] [facility] (1) When: Unknown Comments:Keep scheduled appointment [facility]05-17-2022 Hospital Discharge instructions Patient Education 11/04/2021 [...] who: Are older than age 65. Are -Citizen Of [place]. Are obese. Have a family history of [...] cells. Follow these instructions at home: Take mlxa-pda-dyyzcvp and prescription medicines only as told by [...] 06/07/2006 Document Revised: 05/20/2018 Document Reviewed: 02/15/2017 Digital Performance Patient Education 2020 Context[employer]. Follow Up Care 10/14/2021 11:26:04 With:Lionel CARRINGTON MD, URL Address: [facility] [address] , [place] [address]- When: Unknown [facility] evaluation + Plan note Future Appointments Appointment Date:09/21/2022 09:45:00 AM Scheduled Provider:[facility]ionel [facility] Type:URO Office Visit [facility] evaluation + Plan note Future Appointments Appointment Date:03/09/2022 09:00:00 AM Scheduled Provider[facility] Nurse Visit Appointment Date:04/15/2022 09:00:00 AM Scheduled Provider: Location:[facility] [place] Appointment Type:URO Nurse Visit Appointment Date:09/21/2022 09:45:00 AM Scheduled Provider:Lionel CARRINGTON MD Location:[facility] [place] Appointment Type:URO Office Visit [facility] Evaluation + Plan note Future Appointments Appointment Date:03/09/2022 09:00:00 AM Scheduled Provider: Location:[facility] [place] Appointment Type:URO Nurse Visit Appointment Date:04/15/2022 09:00:00 AM Scheduled Provider: Location:[facility] [place] Appointment Type:URO Nurse Visit Appointment Date:09/21/2022 09:45:00 AM Scheduled Provider:Lionel CARRINGTON MD Location:[facility] [place] Appointment Type:URO Office Visit Diagnostic Tests Pending * [facility] Appointment Date:04/15/2022 09:00:00 AM Scheduled Provider: Location:[facility] [place] Appointment Type:URO Nurse Visit Appointment Date:09/21/2022 09:45:00 AM Scheduled Provider:Lionel CARRINGTON MD Location:[facility] [place] Appointment Type:URO Office Visit [facility] evaluation + Plan note Future Appointments Appointment Date:07/20/2022 10:00:00 AM Scheduled Provider: Location:[facility] [place] Appointment Type:URO Nurse Visit Appointment Date:08/17/2022 10:00:00 AM Scheduled Provider: Location:[facility] [place] Appointment Type:URO Nurse Visit Appointment Date:09/21/2022 09:45:00 AM Scheduled Provider:Lionel CARRINGTON MD Location:[facility] [place] Appointment Type:URO Office Visit Diagnostic Tests Pending * UroVysion FISH ([facility]) [facility] App[facility]ments Appointment Date:08/17/2022 10:00:00 AM Scheduled Provider: Location:[facility] [place] Appointment Type:URO Nurse Visit Appointment Date:09/21/2022 09:45:00 AM Scheduled Provider:Lionel CARRINGTON MD Location:[facility] Appointment Type:URO Office Visit [facility] Evaluation + Plan note Future Appointments Appointment Date:09/22/2022 02:00:00 PM Scheduled Provider: Location:[facility] Appointment Type:Urology CALL PAT FT Appointment Date:09/29/2022 11:15:00 AM Scheduled Provider: Location:[facility] Appointment Type:Urology FT [facility] evaluation + Plan note Future Appointments Appointment Date:09/22/2022 02:00:00 PM Scheduled Provider: Location:[facility] Appointment Type:Urology CALL PAT FT Appointment Date:09/29/2022 11:15:00 AM Scheduled Provider: Location:[facility] Appointment Type:Urology FT Diagnostic Tests Pending * Urine Cytology ([facility]) 09/21/22 [facility] evaluation + Plan note Future Appointments Appointment Date:10/04/2023 10:15:00 AM Scheduled Provider:Lionel CARRINGTON MD Location:[facility] Appointment Type:URO Office Visit Diagnostic Tests Pending * UroVysion Fish and Urine Cyto ([facility]) [facility] App[facility]ments Appointment Date:10/04/2023 10:15:00 AM Scheduled Provider:Lionel CARRINGTON MD Location:[facility] Appointment Type:URO Office Visit [facility] [place] Evaluation + Plan note Future Appointments Appointment Date:10/04/2023 10:15:00 AM Scheduled Provider:Lionel CARRINGTON MD Location:[facility] Appointment Type:URO Office Visit Diagnostic Tests Pending * UroVysion Fish and Urine Cyto ([facility]) [facility] Work Phone: History general Narrative - Reported* [...] KNEE SCOPE Surgical History L shoulder NAE -[facility] 2016 Hospitalization History FLU X2-3 DAYS Hospitalization History see surg. hx. [facility] Other Hospital course Narrative No data available for this section [facility] Hospital Discharge instructions No data available for this section [facility] progress note No data available for this section [facility] Chief Complaint and Reason for Visit [...] Diagnosis 1 Cervical spondylosis (M47.812) Referral Organization [facility] u[facility]gery Referring Provider First Name Zoran Referring Provider Last Name Scott Referring Provider Specialty Neurologica l Surgery Referred Organization [facility] -Central Scheduling Referred Address [address], [place],[address] Referred Provider Specialty Physical The rapist Referral Priority Routine Reason evaluate and tr eat for neck and back pain Diagnosis 1 Cervical spondylosis (M47.812) Diagnosis 2 Low back pain, unspe cified (M54.50) Referral Organization [facility] u[facility]urgery Referring Provider First Name Zoran Referring Provider Last Name Scott Referring Provider Specialty Neurologica l Surgery Referred Organization [facility] Referred Provider Raoul Soriano Referred Address [address], [place],[address] Referred Provider Specialty Pain Medicin e Referral [...] and content) DATE CREATED AUTHOR 11/27/2022 [facility] DATE CREATED AUTHOR AUTHOR'S ORGANIZ ATION 01/02/2023 [facility] DATE CREATED AUTHOR AUTHOR'S ORGANIZ ATION 02/09/2023 [facility] DATE CREATED AUTHOR AUTHOR'S ORGANIZ ATION 06/28/2023 [facility] FOR RECORDS PERTAINING TO PATIENTS WHO ARE [...] BE BASED ON THE PRIMARY CLINICAL RECORDS. [employer] provides no warranty or guarantee of the accuracy or completeness of information in this document.
[2023-07-19 09:58] LABS: Basophils Absolute Auto 0.1 10^3/uL (0.0-0.1); Basophils Percent Auto 0.8 % (0.2-2.0); Eosinophils Absolute Auto 0.1 10^3/uL (0.0-0.7); Hematocrit 42.4 % (42.0-54.0); Hemoglobin 13.4 g/dL (14.0-18.0); Immature Granulocytes Abs Auto 0.05 10^3/uL (0.00-0.03); Immature Granulocytes Pct Auto 0.8 % (0.0-0.5); Lymphocytes Absolute Auto 1.9 10^3/uL (1.2-3.8); Lymphocytes Percent Auto 28.7 % (20.5-60.0); Mean Corpuscular HGB Conc 31.6 g/dL (29.9-35.2); Mean Corpuscular Hemoglobin 29.8 pg (25.9-34.0); Mean Corpuscular Volume 94.4 fL (80.0-94.0); Mean Platelet Volume 9.5 fL (9.5-13.5); Monocytes Absolute Auto 0.5 10^3/uL (0.3-0.8); Neutrophils Percent Auto 59.7 % (43.0-75.0); Platelet Count 312 10^3/uL (150-450); Red Blood Count 4.49 10^6/uL (4.70-6.10); Red Cell Distribution Width 13.1 % (11.0-15.0); White Blood Count 6.7 10^3/uL (4.0-11.0)
[2023-07-19 10:59] LABS: Alanine Aminotransferase 31 U/L (16-63); Albumin Globulin Ratio 1.2; Albumin Level 3.7 g/dL (3.4-5.0); Alkaline Phosphatase 50 U/L (46-116); Anion Gap 11.5; Aspartate Amino Transferase 18 U/L (15-37); BUN Creatinine Ratio 18.1; Bilirubin Total 0.4 mg/dL (0.2-1.0); Calcium 9.3 mg/dL (8.5-10.1); Carbon Dioxide 29.7 mmol/L (21.0-32.0); Chloride 105 mmol/L (98-107); Chol HDL Ratio 5.7; Cholesterol 273 mg/dL (<=200); Estimated GFR (African America >60 (>=60); Estimated GFR (Non-African Ame 56 (>=60); Free T3 1.79 pg/mL (2.18-3.98); Globulin 3.2 g/dL; Glucose 102 mg/dL (74-106); HDL Cholesterol 48 mg/dL (40-60); Potassium 4.2 mmol/L (3.5-5.1); Sodium 142 mmol/L (136-145); Thyroid Stimulating Hormone 1.331 uIU/mL (0.358-3.740); Total Protein 6.9 g/dL (6.4-8.2); Triglycerides 218 mg/dL (<=150); VLDL CHOLESTEROL 43.6 mg/dL
[2023-07-19 11:34] LABS: Estimated Average Glucose 123 mg/dL; Glycohemoglobin A1C 5.9 % (4.5-6.2)
== END 2023-07-19 09:31 | disposition home or self-care (01) ==
LOC: LAB 09:30
PROVIDERS: PCP Family Medicine; Visit Provider Family Medicine
DX: E78.5 Hyperlipidemia, unspecified (principal); R73.09 Other abnormal glucose; K76.89 Other specified diseases of liver; C61 Malignant neoplasm of prostate; I10 Essential (primary) hypertension
CPT/HCPCS: 36415; 80053; 80061; 83036; 84436; 84443; 84481; 85025

== ENCOUNTER 2023-07-22 09:00 | Outpatient (OUT) | payer MEDICARE, SELFPAY ==
--- NOTE | 2023-07-22 09:56 | P.CN_ITS ---
Consult Note: HPI Data of Consult Patient: known to practice within the last 3 years Requesting Physician: Erin Shelton NP Primary Care Provider: Deandre Staley MD Consult Narrative Reason for consult: f/u Narrative: Ryder Durant a pleasant 73 year old male presents for evaluation and management of chronic neck pain, today rating pain 3-4/10. Reporting 50% overall pain relief and functional improvement after right C4/5 5/6 thermal RFA. Doing well on current medication regimen. Patient fell about two weeks ago and has noticed more achiness since this fall. At this time pain increased with twisting, pulling, lifting. Improved with rest and medicaitons. cc:: CC: Erin Shelton NP Review of Systems 2 ROS0 Status of ROS 10 or more systems reviewed and unremark able except as noted in history and below Musculoskeletal Reports: neck pain PFSH PFSH Medical History (Updated 07/22/23 @ 10:03 by Erin Shelton NP) COPD (chronic obstructive pulmonary disease) ?J44.9 - Chronic obstructive pulmonary disease, unspecified (ICD-10) Arthritis ?M19.90 - Unspecified osteoarthritis, unspecified site (ICD-10) Anemia ?D64.9 - Anemia, unspecified (ICD-10) Bladder cancer ?C67.9 - Malignant neoplasm of bladder, unspecified (ICD-10) 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 - Other specified disorders of bladder (ICD-10) Neck pain ?M54.2 - Cervicalgia (ICD-10) Low back pain ?M54.50 - Low back pain, unspecified (ICD-10) Osteoarthritis ?M19.90 - Unspecified osteoarthritis, unspecified site (ICD-10) Acid reflux ?K21.9 - Gastro-esophageal reflux disease without esophagitis (ICD-10) Hearing deficit ?H91.90 - Unspecified hearing loss, unspecified ear (ICD-10) Prostate cancer ?C61 - Malignant neoplasm of prostate (ICD-10) Former smoker ?Z87.891 - Personal history of nicotine dependence (ICD-10) Hypertension ?I10 - Essential (primary) hypertension (ICD-10) Surgical History History of colonoscopy ?Z98.890 - Other specified postprocedural states (ICD-10) History of arthroscopy of knee ?Z98.890 - Other specified postprocedural states (ICD-10) History of foot surgery ?Z98.890 - Other specified postprocedural states (ICD-10) History of appendectomy ?Z90.49 - Acquired absence of other specified parts of digestive tract (ICD- 10) History of hernia repair ?Z98.890 - Other specified postprocedural states (ICD-10) ?Z87.19 - Personal history of other diseases of the digestive system (ICD-10) S/P cystoscopy ?Z98.890 - Other specified postprocedural states (ICD-10) H/O transurethral resection of bladder tumor (TURBT) ?Z98.890 - Other specified postprocedural states (ICD-10) ?Z86.03 - Personal history of neoplasm of uncertain behavior (ICD-10) H/O transurethral resection of bladder tumor (TURBT) ?Z98.890 - Other specified postprocedural states (ICD-10) ?Z86.03 - Personal history of neoplasm of uncertain behavior (ICD-10) S/P cervical spinal fusion ?Z98.1 - Arthrodesis status (ICD-10) H/O prostatectomy ?Z90.79 - Acquired absence of other genital organ(s) (ICD-10) History of ankle surgery ?Z98.890 - Other specified postprocedural states (ICD-10) H/O shoulder surgery ?Z98.890 - Other specified postprocedural states (ICD-10) Family History Other Depression Family history of diabetes mellitus Family history of hypertension Social History Within the past year, how often did you have a drink containing alcohol: 2-4 times a month Smoking status: Former smoker Non-prescribed substance use: denies use Previous occupational history: retired Highest level of school completed/degree received: Associate degree: occupational, technical, vocational program Meds Home Medications and Allergies Home Medications Medication Instructions Recorded Confirmed Type diclofenac sodium 75 mg 75 mg PO BID 11/20/22 03/15/23 History tablet,delayed release fluticasone fur. 100 mcg-umeclid 1 inh inhalation DAILY 11/20/22 03/15/23 History 62.5 mcg-vilant 25 mcg inhalat.powder (Trelegy Ellipta) pantoprazole 40 mg tablet,delayed 40 mg PO DAILY 11/20/22 03/15/23 History release hydrocodone 5 mg-acetaminophen 325 1 tab PO DAILY 01/28/23 03/15/23 History mg tablet amlodipine 5 mg tablet 5 mg PO DAILY 03/15/23 03/15/23 History methocarbamol 500 mg tablet mg PO QDAY 04/21/23 History hydrocodone 5 mg-acetaminophen 325 1 tab PO DAILY PRN pain #30 tabs 05/18/23 Rx mg tablet hydrocodone 5 mg-acetaminophen 325 1 tab PO .EVERYDAY PRN pain #30 07/12/23 Rx mg tablet tabs Allergies Allergy/AdvReac Type Severity Reaction Status Date / Time codeine Allergy Unknown Hives Verified 03/15/23 10:17 acetaminophen [From Percocet] AdvReac ineffective Verified 03/15/23 10:17 oxycodone [From Percocet] AdvReac ineffective Verified 03/15/23 10:17 Exam Constitutional Documenting provider has reviewed patient's vital signs: yes Common normals: no apparent distress, oriented x3, healthy appearing, alert and well nourished General appearance: cooperative Orientation/consciousness: Yes awake, Yes oriented to person, Yes oriented to place and Yes oriented to time HENTN Common normals: normocephalic, hearing grossly normal bilaterally and moist oral mucous membranes Head and scalp: normocephalic Eye Common normals: PERRL Pupil: PERRL Neck & C-Spine Common normals: full ROM General: normal visual inspection Cervical spine: pain with cervical ROM, cervical spine tenderness, paracervical muscle tenderness and paracervical muscle spasm Other: no arm drift muscle strength bilat UE 5/5 with intact sensation axial pain with ROM Neck images: 2 1. Chest Common normals: inspection of chest normal Respiratory Common normals: normal respiratory effort, no retractions and no use of accessory muscles Effort & inspection: able to speak in complete sentences and symmetric chest movement Extremity Common normals: normal to inspection, full ROM and normal capillary refill Neuro Common normals: oriented x3, CN's II-XII intact bilaterally, moves all extremities, no focal motor deficits, no sensory deficits noted and deep tendon reflexes 2+ bilaterally Sensorium/orientation: alert Motor exam: strength 5/5 throughout and no movement abnormalities noted Psych Common normals: mental status grossly normal, thought process normal, cooperative, affect normal, speech normal and activity/motor behavior normal Speech: normal speech Thought process: normal thought process Results Additional Findings Additional findings: I have checked an [place]AR[place] report on this patient today and there are no aberrancies noted in the prescribing history.?? A drug screen was completed and reviewed within the last year, and if there has not been a drug screen completed we ordered one today to monitor higher risk, state monitored pain medication use. As part of providing excellent, safe, comprehensive care, the following was completed at our patient's visit: 1. A medication reconciliation and review to ensure accurate knowledge of current/active medications, including asking our patients to inform us about any [id number] medications or herbal remedies/nutritional supplements/alternative remedies. 2. A review to specifically ensure our patients have had annual screening for: elevated body mass index (BMI), tobacco use, screening for depression, and screening for unhealthy alcohol use. When screening is concerning, patients are provided with education and the specific recommendation to discuss the concerning health issue and treatment options with their primary care provider. Assessment and Plan Assessment and Plan (1) Chronic prescription opiate use: Assessment and Plan: I feel these medications are improving the patient's quality of life and allow them to tolerate activities of daily living as well as participate in recreational activity.? The patient does not report intolerable side effects. The patient is NOT opioid naive and non-pharmacologic and non-opioid treatment has failed to significantly relieve the patient's pain and improve functionality. The patient has a diagnosis that is related to a somatic or visceral pain etiology. ? ?? I reviewed with the patient the potential risks and side effects with the use of? opioid medications including but not limited to respiratory depression,? sedation, and even . I verified the patient has access to naloxone should? these effects occur. I advised the patient to avoid the use of any other? sedation substances including alcohol, THC, and benzodiazepines while? taking opioid medications due to the risk of compounding side effects and? detrimental outcomes. I reviewed the SWIMMING TE[employer]ER, pain treatment agreement, urine? drug screen, and opioid start talking forms. The patient was advised to let? their family know they had Naloxone in case they would need to administer? the medication.? ?? A drug screen was completed within the last year, and no aberrancies were noted regarding their use of controlled substances. The patient understands they are subject to the terms and conditions of the pain contract that they have signed. ? ?? I have checked an OARRS report on this patient today and there are no aberrancies noted in the prescribing history.? (2) Myofascial pain: (3) Muscle spasm: (4) Cervical spondylosis: (5) Cervical postlaminectomy syndrome: Plan return to office with Dr Landa for right paracervical and trapezius TPI stop methocarbamol caused drowsiness, start cyclobenzaprine 5-10mg BID PRN myofascial pain continue norco 5-325 QD PRN moderate to severe pain, continues to find functional improvement. no side effects continue other medications start OTC lidocaine patches for myofascial neck pain f/u 1 month
--- OUTSIDE RECORDS SUMMARY | 2023-07-26 08:39 | XMS_ITS | CCD ---
Author Name Unknown Address [address] [place] [address] Organization [facility] Care Team Providers Care Vulcanizer Name Role Phone MD Yolande Staley Primary Care Provider [phone] MD Lionel Carrington Attending Provider Yolande Staley Primary Care Physician Leidy Plummer Unavailable Unavailable MD Yolande Staley Primary Care Provider [phone] MD Lionel Carrington Attending Provider Zoran Chavez Unavailable SHARON, DR VILLEGAS Admitting [...] DR LANIER Attending Unavailable HOY ., DR LNAIER Consulting Unavailable HOY ., DR LANIER Primary [...] Unavailable MD Yolande Staley Primary Care Provider [phone] MD Zoran Chavez Attending Provider [phone] Syeda NOBLE, Tamiko Kilgore Attending Unavailable Syeda [...] Drug Allergy 04-11-20 20 Itching, Itching agitated [facility] (20 sources) Codeine; 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: [Codeine] Drug Allergy 06-04-20 14 rash [facility] (7 sources) oxyCODONE; 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: [oxycodone] Drug Allergy 04-11-20 20 Itching, agitated [facility] (16 sources) Acetaminophen / oxyCODONE; 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: [acetaminophen-oxyc odone] Drug Allergy aggitation [facility] James Comment on above: pt states this does not work for pt, pt is not allergic to vicodin (2 sources) cyclobenzaprine Drug Allergy itching [facility] [employer] Other (2 sources) HYDROcodone Drug Allergy anxiety [facility] [employer] Other (2 sources) tiZANidine Drug Allergy hives [facility] [employer] Other (3 sources) Acetaminophen / HYDROcodone; 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: [Vicodin] Drug Allergy [facility] (2 sources) Acetaminophen / oxyCODONE Drug Allergy [facility] Repository (1 source) atorvastatin Drug Allergy [facility] Repository (2 sources) tiZANidine Drug Allergy [facility] (1 source) Acetaminophen / oxyCODONE; 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: [Percocet 5/325] Drug Allergy [facility] Repository Medications Current Medications Medication Drug [...] 12:00am Start: 09-19-2021 take 2 tablets by [facility] twice daily carvedilol 6.25 mg Tab [...] 07, 2019 1:00am April 19, 2020 8:04am Myiacdiaffb-Fhqfiubyd-Wxdfxh er (6 sources) Anticholinergic, Corticosteroid, beta2-Adrenergic Agonist Start: 08-07-2019 Tcqikycdyeh-Pnqwupofb-Fqttlm er (Trelegy Ellipta) 100-62.5-25 mcg Blister With [...] procedure, # 2 tab(s), Refills(s) 0, Pharmacy: [facility]/pharmacy #[id number], 170, cm, 01/20/23 10:45:00 EDT, Height/Length Dosing, 83.5, kg, 01/20/23 10:45:00 EDT, Weight Dosing Start Date: 01/20/23 Status: Ordered Start: 12-31-2022 take 1 tablet by barry th once daily Cipro 500 mg Tab 500 mg = 1 tab(s), Oral, Daily, Take 1 tablet the day before the procedure and 1 tablet after the procedure, # 6 tab(s), Refills(s) 0, Pharmacy: [facility]/pharmacy #[id number], 170, cm, 09/22/22 12:23:00 EDT, Height/Length Dosing, 78, kg, 02/24/22 10:53:00 EDT, W... Start Date: 12/31/22 Status: Ordered Start: 07-02-2022 take 1 tablet by barry once daily Cipro 500 mg Tab 500 mg = 1 tab(s), Oral, Daily, Take 1 tablet the day before the procedure and 1 tablet after the procedure, # 6 tab(s), Refills(s) 0, Pharmacy: [facility]/pharmacy #[id number], 170, cm, 02/24/22 10:53:00 EDT, Height/Length Dosing, 78, kg, 02/24/22 10:53:00 EDT, W... Start Date: 07/02/22 Status: Ordered Start: 11-05-2021 take 1 tablet by barry once daily Cipro 500 mg Tab 500 mg = 1 tab(s), Oral, Daily, Take 1 tab at nighttime prior to the day of procedure, then 1 tab right after the procedure, # 2 tab(s), Refills(s) 0, Pharmacy: [facility]/pharmacy #[id number], 170, cm, 11/05/21 11:37:00 EDT, Height/Length [...] procedure, # 2 cap(s), Refills(s) 0, Pharmacy: [facility]/pharmacy #[id number], 188, cm, 02/10/23 14:22:00 EDT, Height/Length [...] period., # 30 tab(s), Refills(s) 3, Pharmacy: [id number], 170, cm, 02/24/22 10:53:00 EDT, Height/Length Dosing, 78, kg, 02/24/22 10:53:00 EDT, Weight Dosing Start Date: 07/05/22 Status: Ordered Start: 09-19-2021 sildenafil 100 mg Tab 100 mg = 1 tab(s), Oral, Daily, Take 1 pill 30 minutes prior to sexual relations, # 30 tab(s), Refills(s) 3, Pharmacy: [facility], 170, cm, 09/19/21 10:16:00 EDT, [...] a surgery d one radical prostectomy at [facility] Cancer of prostate (20 sources) Personal [...] region] Episodic Other aftercare (1 source) Other fci (current) drug therapy; 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: [OTH 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c: Loretta Simons; Sent: 06/28/2023 10:52:09 EST Show up: 09/20/2023 10:52:00 EDT Subject: Cysto/6 mo Due Date/Time: 10/11/2023 10:52:00 EDT Reminder/Recall Patient is due in October 2023 for 6 month cysto/fish/cytol, PSA (bt ck) Normal [facility] UroVysion Fish and Urine Cyt o ([facility])on 05-26-2023 UVFISH & UC Revision Information Invalid Interpretation Code [facility] Comment on above: Result Comment: Jimbo ection Reason -[ To Nur, 05/26/23 - 14:52 ] Corrected report issued to include PMS/PWS. The diagnosis remains unchanged. Correction Notes - Performed By: #### 1 [id number] #### [facility] [address] [place] [address] Consent for Procedure/Surger yon 04-27-2023 Consent for Procedure/Surgery [id number]#1.0 0TIFF Normal [facility] Consent for Treatmenton Consent for Treatment [id number]#1.0 0TIFF Normal [facility] IntraOperative Documentson 1 06-27-2022 IntraOperative Documents [id number]#1.0 0TIFF Normal [facility] Main OR Intraoperative Recor don 04-27-2023 Main OR Intraoperative Record IntraOp Document Type FTURO Summary Primary Physician: Lionel CARRINGTON MD Finalized Date/Time: 04/27/23 11:02:57 Pt. Name: MARY DIAZ/Sex: 1950 Male Med Rec #: [id number] Physician: Lionel CARRINGTON MD Financial #: [id number] Pt. Type: O Room/Bed: / Admit/Disch: 04/27/23 [...] Nanci Luna Role Performed Surgeon - Primary Tab Builder - Primary Scrub - Primary Time In 04/27/23 10:52:00 04/27/23 10:52:00 04/27/23 10:52:00 Time Out 04/27/23 11:05:00 04/27/23 11:05:00 04/27/23 11:05:00 Procedure CYSTOSCOPY LOCAL(.) CYSTOSCOPY LOCAL(.) CYSTOSCOPY LOCAL(.) Comments Last Modified By: Edgard ZELAYA, EDITHOR, Edgard ZELAYA, EDITHOR, Edgrad ZELAYA, PAULINA, Cheryl 04/27/23 Cheryl 04/27/23 Cheryl [...] PAULINA Rene RN, Ruthann 04/27/23 11:02 Normal [facility] Main OR Preoperative Recordo n 04-27-2023 Main OR Preoperative Record Holding Area Document Type FTURO Summary Primary Physician: Lionel CARRINGTON MD Finalized Date/Time: 04/27/23 10:26:02 Pt. Name: MARY DIAZ/Sex: 1950 Male Med Rec #: [id number] Physician: Lionel CARRINGTON MD Financial #: [id number] Pt. Type: O Room/Bed: / Admit/Disch: 04/27/23 [...] Complaints of Pain: No Skin Integrity Intact, [place], Warm, & Dry Vitals - EU Blood Pressure 167/96 Pulse 76 bpm Respirations 20 br/min SPO2 97 % Last Modified By: Avani Costello LPN 04/27/23 10:25:57 General Comments: Temp 36.7 Finalized By: Avani Costello LPN Document Signatures Signed By: Avani Costello LPN 04/27/23 10:26 Normal [facility] Operative Reporton Operative Report Patient: MARY [...] a surveillance cystoscopy in 6 months.. Normal [facility] Comment on above: Result Comment: Elec tronically Signed By: DEVONTE NOBLE, Lionel Ernandez\Date and Time Signed: 04/27/23 11:04 EST Outpatient Surgery Discharge Instructionon 04-27-2023 Outpatient Surgery Discharge Instruction [id number] 0TIFF Normal [facility] Reminderson 04-27-2023 Reminders - From: Loretta Simons To: EU - Recalls [facility]; Cc: Loretta Simons; Sent: 03/05/2023 14:06:16 EDT Show up: 07/22/2023 14:06:00 EST Subject: Cysto/fish/cytol, Due Date/Time: 08/09/2023 14:06:00 EST Reminder/Recall Patient is due in August 2023 for 4 month cysto/fish/cytol (bt ck), ? PSA Pt will be due in October 2023 for 6 month cysto Normal [facility] UroVysion Fish and Urine Cyt o ([facility])on 04-27-2023 [facility] Method of Extraction Voided Normal [facility] Comment on above: Performed By: #### 1 [id number] #### [facility] [address] [place] [address] [facility] Number of Jars 1 Invalid Interpretation Code [facility] Comment on above: Performed By: #### 1 [id number] #### [facility] [address] [place] [address] [facility] Specimen Urine Normal [facility] Comment on above: Performed By: #### 1 [id number] #### [facility] [address] [place] [address] [facility] Type of Service Technical Only Normal [facility] Comment on above: Performed By: #### 1 [id number] #### [facility] [address] [place] [address] Outside Colonoscopyon 2022 Outside Colonoscopy [id number]#1.0 0CD:127 [facility] Reminderson 03-16-2023 Reminders - From: Stephanie Fletcher LPN To: N - Clinical; Sent: 03/16/2023 07:57:36 EDT Show up: 02/08/2028 07:00:00 EDT Subject: colonoscopy recall Due Date/Time: 03/10/2028 07:00:00 EDT Reminder/Recall Patient due for surveillance colonoscopy 03/10/2028 due to history of colonic polyps. [facility] Reminderson 03-05-2023 Reminders - [facility]: Loret[facility] Simons [facility]; Cc: Loretta Simons; Sent: 07/02/2022 14:10:41 EST Show up: 08/19/2022 14:10:00 EST Subject: cysto/fish/cytol Due Date/Time: 09/07/2022 14:10:00 EDT Reminder/Recall Pt is due in September 2022 for 3 month cysto/fish./cytol (bt ck) Patient scheduled for 09/29/22. He will be due in December 2022.LG Patient scheduled for 01/05/23. Pt will be due in Mar 2023.LG Patient sched for 4 month cysto 04/27/23 at [facility]. He will be due in August 2023.LG new thread [facility] Consent for Procedure/Surger yon 02-11-2023 Consent for Procedure/Surgery [id number] CD:127 [facility] Ambulatory Visit Summaryon 0 02-10-2023 Ambulatory [...] NOBLE, Lionel Burgos Where: [facility] Lab Reportson 02-03-2023 Lab Reports [id number] 0CD:127 Normal [facility] Physician Referralon 023 Physician Referral [id number] 0CD:127 Normal [facility] UroVysion Fish and Urine Cyt o ([facility])on 02-03-2023 [facility] Revision Information Invalid Interpretation Code [facility] Comment on above: Result Comment: Jimbo ection Reason -[ To Nur, 02/03/23 - 12:32 ] Corrected report issued to update PMS/PWS. The diagnosis remains unchanged. Correction Notes - Performed By: #### 1 [id number] #### [facility] [address] [place] [address] Lab Reportson 01-29-2023 Lab Reports [id number] 0CD:127 Normal [facility] Operative Reporton Operative Report [id number]#1.0 0CD:127 Normal [facility] Ambulatory Visit Summaryon 0 01-20-2023 Ambulatory [...] LUIS NOBLE, Qamar Burgos Where: General Surgery [facility] Normal [address] [place] [address] [place] [address]- \.br\ You Need to Schedule the Following Appointments\.b r\ Follow Up with DEVONTE NOBLE, Lionel Burgos, URL When: \.br\ Comments:\.br\ sched cysto\.br\ Where:\.br\ [facility] [address]\.br\ [place] [address]-\.br\ [phone]\.br\ Medications\.br \ What How Much When Instructions\.b r\ New ciprofloxacin (Cipro 500 mg Tab) 1 Tablets By Mouth Every day take one tab day before procedure and one tab after procedure Pickup at [facility]/pharmacy #[id number]\.br\ Unchanged sildenafil (sildenafil 100 mg Tab) [...] questions or concerns \.br\ Pharmacy Information\.br \ [facility]/pharmacy #[id number]: [address], [place] [phone]\.br\ Allergies\.br\ Percocet 5/325\.br\ codeine (hives/rashes)\ .br\ Problems\.br\ [...] these instructions at home:\.br\ ? \.br\ Take fkqw-mcz-xwdlpk r and prescription medicines only as told [...] to find more information\.br \ ? \.br\ [place] [employer] (ACS): cancer.org\.br\ ? \.br\ National Cancer [place] (NCI): cancer.gov\.br\ Contact a health care provider [...] based on the stage of your cancer.\.br\ [facility] Ambulatory Visit Summary MARY DIAZ :1950 [...] [place] Normal [address] [place] [address]- \.br\ You Need to Schedule the Following Appointments\.b r\ Follow Up with DEVONTE NOBLE, Lionel Burgos, URL When: \.br\ Comments:\.br\ sched cysto\.br\ Where:\.br\ [facility] [address]br\ [place] [address]-\.br\ [phone]\.br\ Medications\.br \ What How Much When Instructions\.b [...] these instructions at home:\.br\ ? \.br\ Take pxly-mrq-sxkczh r and prescription medicines only as told [...] to find more information\.br \ ? \.br\ [place] [employer] (ACS): cancer.org\.br\ ? \.br\ National Cancer [place] (NCI): cancer.gov\.br\ Contact a health care provider [...] to you by your health care pro [facility] Pathology Noteon 01-20-2023 Pathology Note [id number]#1.0 0CD:127 Normal [facility] Patient Educationon 01-21-20 23 Patient Education [...] Follow these instructions at home: ? Take qbqv-rvh-ybyznii and prescription medicines only as told by [...] important. Where to find more information ? [place] [employer] (ACS): cancer.org ? National Cancer [place] (NCI): cancer.gov Contact a health care provider [...] wi (more content not included)... Normal [facility] Urology Office/Clinic Noteon 01-20-2023 Urology Office/Clinic Note [...] Urology [address], [place] [phone] Additional Instructions: sched cysto Patient Education Bladder [...] Arthroplasty of th (more content not included)... [facility] Comment on above: Result Comment: Elec tronically Signed By: Lionel CARRINGTON MD\.br\Date and Time Signed: 01/20/23 11:40 EDT\.br\Electronically Co-Signed By: Lilo Zhou\.br\Date and Time Co-Signed: 01/20/23 11:37 EDT Lab Reportson 01-11-2023 Lab Reports [id number] 0CD:127 [facility] Consent for Procedure/Surger yon 01-05-2023 Consent for Procedure/Surgery [id number]. 00CD:127 [facility] Consent for Treatmenton 07- Consent for Treatment [id number]#1.0 0CD:127 [facility] IntraOperative Documentson 0 01-05-2023 IntraOperative Documents [id number]. 00CD:127 [facility] Main OR Intraoperative Recor don 01-05-2023 Main OR Intraoperative Record IntraOp Document Type FTURO Summary Primary Physician: Lionel CARRINGTON MD Finalized Date/Time: 01/05/23 10:57:53 Pt. Name: MARY DIAZ/Sex: 1950 Male Med Rec #: [id number] Physician: Lionel CARRINGTON MD Financial #: [id number] Pt. Type: O Room/Bed: / Admit/Disch: 01/05/23 [...] Zora Luna Role Performed Surgeon - Primary Tab Builder - Primary Scrub - Primary Time In 01/05/23 10:38:00 01/05/23 10:38:00 01/05/23 10:38:00 Time Out 01/05/23 10:54:00 01/05/23 10:54:00 01/05/23 10:54:00 Procedure CYSTOSCOPY LOCAL(.) CYSTOSCOPY LOCAL(.) CYSTOSCOPY LOCAL(.) Comments Last Modified By: Edgard RN, CNOR, Edgard RN, EDITHOR, Edgard ZELAYA, EDITHOR, Cherly 01/05/23 Cheryl 01/05/23 Cheryl 01/05/23 10:51:02 10:51:02 [...] CANCER, clear bladder Last Modified By: PAULINA eRne RN, Ruthann 01/05/23 10:40:14 Post-Care Text: The [...] PAULINA Rene RN, Ruthann 01/05/23 10:57 Normal [facility] Main OR Preoperative Recordo n 01-05-2023 Main OR Preoperative Record Holding Area Document Type FTURO Summary Primary Physician: Lionel CARRINGTON MD Finalized Date/Time: 01/05/23 10:43:08 Pt. Name: MARY DIAZ/Sex: 1950 Male Med Rec #: [id number] Physician: Lionel CARRINGTON MD Financial #: [id number] Pt. Type: O Room/Bed: / Admit/Disch: 01/05/23 [...] PAULINA Rene RN, Ruthann 01/05/23 10:43 Normal [facility] Operative Reporton Operative Report Patient: MARY [...] tumor has developed in these areas.. Normal [facility] Comment on above: Result Comment: Elec tronically Signed By: DEVONTE NOBLE, Lionel Ernandez\Date and Time Signed: 01/05/23 10:59 EDT UroVysion Fish and Urine Cyt o ([facility])on 01-05-2023 [facility] Method of Extraction Bladder Wash Normal [facility] Comment on above: Performed By: #### 1 [id number] #### [facility] [address] [place] [address] [facility] Number of Jars 1 Invalid Interpretation Code [facility] Comment on above: Performed By: #### 1 [id number] #### [facility] [address] [place] [address] [facility] Specimen Urine Normal [facility] Comment on above: Performed By: #### 1 [id number] #### [facility] [address] [place] [address] [facility] Type of Service Technical Only Normal [facility] Comment on above: Performed By: #### 1 [id number] #### [facility] [address] [place] [address] MR lumbar spine wo conon MR lumbar spine wo [facility] Main [place] [id number] MRI Report Signed Patient: Mary Diaz MR#: [id number] : 1950 Acct:[id number] Age/Sex: 72 / M ADM Date: 01/01/23 Loc: MR Room: Type: [facility] Attending Dr: Zoran Chavez MD Copies to: [...] Jamaica Alas M.D.01/01/2023 2:48 PM Dictation Location: [place] [address] Transcribed By: [facility] 01/01/23 1448 Dictated By: Jamaica Alas II, MD 01/01/23 144 Signed By: 01/01/23 1448 [facility] - Clinical Noteon Retail - Clinical Note [id number] 0CD:127 Normal [facility] XR CSPINE MIN 4 VIEWSon 05-0 [...] by: ALLI CORTES Date: 2022-10-23 11:53 Normal [facility] XR LSPINE W_OBLS AND FLEX_EX Ton 10-23-2022 XR LSPINE W_OBLS AND FLEX_EXT EXAM: XR LSPINE W_OBLS AND FLEX_EXT HISTORY: Low back pain COMPARISON: None. TECHNIQUE: 2 views Findings/impression: Retrolisthesis of L2 over L3 by 4 mm. Multilevel endplate degenerative changes, disc disease, and anterior spurring. Calcified atherosclerotic disease of aorta. No acute fracture. Electronically authenticated by: JAMAICA GONZALEZ Date: 2022-10-23 13:18 Normal [facility] BNPon 10-06-2022 Natriuretic peptide B (Bld) [Mass/Vol] 844.0 pg/mL Normal <=900.0 [facility] Comment on above: Performed By: #### C VDTB #### [facility] [address] [place] [address] Dr. Johnna Dixon CBC AUTO DIFFon 10-06-2022 BASO # 0.0 103/ul Normal 0.0-0.1 [facility] Comment on above: Performed By: #### C BC #### [facility] [address] [place] [address] Dr. Johnna Dixon Basophils/100 WBC (Bld) 0.0 % Critically low 0.2-2.0 [facility] Comment on above: Performed By: #### C BC #### [facility] [address] [place] [address] Dr. Johnna Dixon EO # 0.0 103/ul Normal 0.0-0.7 [facility] Comment on above: Performed By: #### C BC #### [facility] [address] [place] [address] Dr. Johnna Dixon Eosinophils/100 WBC (Bld) 0.0 % Critically low 0.9-7.0 [facility] Comment on above: Performed By: #### C BC #### [facility] [address] [place] [address] Dr. Johnna Dixon Erythrocyte distribution width (RBC) [Ratio] 13.9 % Normal 11.0-15.0 [facility] Comment on above: Performed By: #### C BC #### [facility] [address] [place] [address] Dr. Johnna Dixon Hematocrit (Bld) [Volume fraction] 33.6 % Critically low 42.0-54.0 [facility] Comment on above: Performed By: #### C BC #### [facility] [address] [place] [address] Dr. Johnna Dixon Hemoglobin (Bld) [Mass/Vol] 11.1 g/dL Critically low 14.0-18.0 [facility] Comment on above: Performed By: #### C BC #### [facility] [address] [place] [address] Dr. Johnna Dixon IG # 0.03 10e3/ul Normal 0.00-0.03 [facility] Comment on above: Performed By: #### C BC #### [facility] [address] [place] [address] Dr. Johnna Dixon IG % 0.5 % Normal 0.0-0.5 [facility] Comment on above: Performed By: #### C BC #### [facility] [address] [place] [address] Dr. Johnna iDxon LYMPH # 0.7 103/ul Critically low 1.2-3.8 [facility] Comment on above: Performed By: #### C BC #### [facility] [address] [place] [address] Dr. Johnna Dixon Lymphocytes/100 WBC (Bld) 11.5 % Critically low 20.5-60.0 [facility] Comment on above: Performed By: #### C BC #### [facility] [address] [place] [address] Dr. Johnna Dixon MANUAL DIFF REQ NO Normal [facility] Comment on above: Performed By: #### C BC #### [facility] [address] [place] [address] Dr. Johnna Dixon MCH (RBC) [Entitic mass] 31.0 pg Normal 25.9-34.0 [facility] Comment on above: Performed By: #### C BC #### [facility] [address] [place] [address] Dr. Johnna Dixon MCHC (RBC) [Mass/Vol] 33.0 g/dL Normal 29.9-35.2 [facility] Comment on above: Performed By: #### C BC #### [facility] [address] [place] [address] Dr. Johnna Dixon MCV (RBC) [Entitic vol] 93.9 fL Normal 80.0-94.0 [facility] Comment on above: Performed By: #### C BC #### [facility] [address] [place] [address] Dr. Johnna Dixon MONO # 0.3 103/ul Normal 0.3-0.8 [facility] Comment on above: Performed By: #### C BC #### [facility] [address] [place] [address] Dr. Johnna Dixon Monocytes/100 WBC (Bld) 4.5 % Normal 1.7-12.0 [facility] Comment on above: Performed By: #### C BC #### [facility] [address] [place] [address] Dr. Johnna Dixon NEUT # 5.0 103/ul Normal 1.4-6.5 [facility] Comment on above: Performed By: #### C BC #### [facility] [address] [place] [address] Dr. Johnna Dixon Neutrophils/100 WBC (Bld) 83.5 % Critically high 43.0-75.0 [facility] Comment on above: Performed By: #### C BC #### [facility] [address] [place] [address] Dr. Johnna Dixon Platelet mean volume (Bld) [Entitic vol] 10.3 fL Normal 9.5-13.5 [facility] Comment on above: Performed By: #### C BC #### [facility] [address] [place] [address] Dr. Johnna Dixon PLT 184 103/ul Normal 150-450 [facility] Comment on above: Performed By: #### C BC #### [facility] [address] [place] [address] Dr. Johnna Dixon RBC 3.58 106/ul Critically low 4.70-6.10 [facility] Comment on above: Performed By: #### C BC #### [facility] [address] [place] [address] Dr. Johnna Dixon WBC 6.0 103/ul Normal 4.0-11.0 [facility] Comment on above: Performed By: #### C BC #### [facility] [address] [place] [address] Dr. Johnna Dixon PROF 14(COMP METB)on 023 Albumin [Mass/Vol] 2.7 g/dL Critically low 3.4-5.0 [facility] Comment on above: Performed By: #### C VDTBH #### [facility] [address] [address] [address] Johnna Dixon Albumin/Globulin [Mass ratio] 0.9 {ratio} Normal [facility] Comment on above: Performed By: #### C VDTBH #### [facility] [address] [address] [address] Johnna Dixon ALP [Catalytic activity/Vol] 32 U/L Critically low 46-116 [facility] Comment on above: Performed By: #### C VDTBH #### [facility] [address] [place] [address] Dr. Johnna Dixon ALT [Catalytic activity/Vol] 19 U/L Normal 16-63 [facility] Comment on above: Performed By: #### C VDTBH #### [facility] [address] [place] [address] Dr. Johnna Dixon Anion gap [Moles/Vol] 14.0 mmol/L Normal [facility] Comment on above: Performed By: #### C VDTBH #### [facility] [address] [place] [address] Dr. Johnna Dixon AST [Catalytic activity/Vol] 12 U/L Critically low 15-37 [facility] Comment on above: Performed By: #### C VDTBH #### [facility] [address] [place] [address] Dr. Johnna Dixon Bilirubin [Mass/Vol] 0.6 mg/dL Normal 0.2-1.0 [facility] Comment on above: Performed By: #### C VDTBH #### [facility] [address] [place] [address] Dr. Johnna Dixon Calcium [Mass/Vol] 8.3 mg/dL Critically low 8.5-10.1 [facility] Comment on above: Performed By: #### C VDTB #### [facility] [address] [address] [address] Johnna Dixon Chloride [Moles/Vol] 107 mmol/L Normal 98-107 [facility] Comment on above: Performed By: #### C VDTBH #### [facility] [address] [address] [address] Johnna Dixon CO2 [Moles/Vol] 24.9 mmol/L Normal 21.0-32.0 [facility] Comment on above: Performed By: #### C VDTBH #### [facility] [address] [address] [address] Johnna Dixon Creatinine [Mass/Vol] 1.20 mg/dL Normal 0.70-1.30 [facility] Comment on above: Performed By: #### C VDTBH #### [facility] [address] [place] [address] Dr. Johnna Dixon EGFR-AF LITHUANIAN >60 Normal >=60 [facility] Comment on above: Performed By: #### C VDTBH #### [facility] [address] [place] [address] Dr. Johnna Dixon EGFR-NON AF LITHUANIAN 60 mL/min/1.73m2 Normal >=60 [facility] Comment on above: Performed By: #### C VDTBH #### [facility] [address] [place] [address] Dr. Johnna Dixon Globulin (S) [Mass/Vol] 2.9 g/dL Normal [facility] Comment on above: Performed By: #### C VDTBH #### [facility] [address] [place] [address] Dr. Johnna Dixon Glucose [Mass/Vol] 153 mg/dL Critically high 74-106 T [facility] Comment on above: Performed By: #### C VDTBH #### [facility] [address] [place] [address] Dr. Johnna Dixon Potassium [Moles/Vol] 3.9 mmol/L Normal 3.5-5.1 [facility] Comment on above: Performed By: #### C VDTBH #### [facility] [address] [place] [address] Dr. Johnna Dixon Protein [Mass/Vol] 5.6 g/dL Critically low 6.4-8.2 Th [facility] Comment on above: Performed By: #### C VDTBH #### [facility] [address] [place] [address] Dr. Johnna Dixon Sodium [Moles/Vol] 142 mmol/L Normal 136-145 [facility] Comment on above: Performed By: #### C VDTBH #### [facility] [address] [place] [address] Dr. Johnna Dixon Urea nitrogen [Mass/Vol] 14.0 mg/dL Normal 7.0-18.0 [facility] Comment on above: Performed By: #### C VDTBH #### [facility] [address] [place] [address] Dr. Johnna Dixon Urea nitrogen/Creatinine [Mass ratio] 11.7 mg/mg Normal [facility] Comment on above: Performed By: #### C VDTBH #### [facility] [address] [place] [address] Dr. Johnna Dixon CBC AUTO DIFFon 10-05-2022 BASO # 0.0 103/ul Normal 0.0-0.1 [facility] Comment on above: Performed By: #### S PUTGS #### [facility] [address] [place] [address] Dr. Johnna Dixon Basophils/100 WBC (Bld) 0.2 % Normal 0.2-2.0 [facility] Comment on above: Performed By: #### S PUTGS #### [facility] [address] [place] [address] Dr. Johnna Dixon EO # 0.0 103/ul Normal 0.0-0.7 [facility] Comment on above: Performed By: #### S PUTGS #### [facility] [address] [place] [address] Dr. Johnna Dixon Eosinophils/100 WBC (Bld) 0.2 % Critically low 0.9-7.0 [facility] Comment on above: Performed By: #### S PUTGS #### [facility] [address] [place] [address] Dr. Johnna Dixon Erythrocyte distribution width (RBC) [Ratio] 14.1 % Normal 11.0-15.0 [facility] Comment on above: Performed By: #### S PUTGS #### [facility] [address] [place] [address] Dr. Johnna Dixon Hematocrit (Bld) [Volume fraction] 39.9 % Critically low 42.0-54.0 [facility] Comment on above: Performed By: #### S PUTGS #### [facility] [address] [place] [address] Dr. Johnna Dixon Hemoglobin (Bld) [Mass/Vol] 12.8 g/dL Critically low 14.0-18.0 [facility] Comment on above: Performed By: #### S PUTGS #### [facility] [address] [place] [address] Dr. Johnna Dixon IG # 0.01 10e3/ul Normal 0.00-0.03 [facility] Comment on above: Performed By: #### S PUTGS #### [facility] [address] [place] [address] Dr. Johnna Dixon IG % 0.2 % Normal 0.0-0.5 [facility] Comment on above: Performed By: #### S PUTGS #### [facility] [address] [place] [address] Dr. Johnna Dixon LYMPH # 0.7 103/ul Critically low 1.2-3.8 [facility] Comment on above: Performed By: #### S PUTGS #### [facility] [address] [place] [address] Dr. Johnna Dixon Lymphocytes/100 WBC (Bld) 14.3 % Critically low 20.5-60.0 [facility] Comment on above: Performed By: #### S PUTGS #### [facility] [address] [place] [address] Dr. Johnna Dixon MANUAL DIFF REQ NO Normal [facility] Comment on above: Performed By: #### S PUTGS #### [facility] [address] [address] [address] Johnna Dixon MCH (RBC) [Entitic mass] 30.7 pg Normal 25.9-34.0 [facility] Comment on above: Performed By: #### S PUTGS #### [facility] [address] [address] [address] Johnna Dixon MCHC (RBC) [Mass/Vol] 32.1 g/dL Normal 29.9-35.2 [facility] Comment on above: Performed By: #### S PUTGS #### [facility] [address] [place] [address] Dr. Johnna Dixon MCV (RBC) [Entitic vol] 95.7 fL Critically high 80.0-94.0 [facility] Comment on above: Performed By: #### S PUTGS #### [facility] [address] [place] [address] Dr. Johnna Dixon MONO # 0.6 103/ul Normal 0.3-0.8 [facility] Comment on above: Performed By: #### S PUTGS #### [facility] [address] [place] [address] Dr. Johnna Dixno Monocytes/100 WBC (Bld) 12.5 % Critically high 1.7-12.0 [facility] Comment on above: Performed By: #### S PUTGS #### [facility] [address] [place] [address] Dr. Johnna Dixon NEUT # 3.6 103/ul Normal 1.4-6.5 [facility] Comment on above: Performed By: #### S PUTGS #### [facility] [address] [place] [address] Dr. Johnna Dixon Neutrophils/100 WBC (Bld) 72.6 % Normal 43.0-75.0 [facility] Comment on above: Performed By: #### S PUTGS #### [facility] [address] [place] [address] Dr. Johnna Dixon Platelet mean volume (Bld) [Entitic vol] 9.5 fL Normal 9.5-13.5 [facility] Comment on above: Performed By: #### S PUTGS #### [facility] [address] [address] [address] Johnna Dixon PLT 213 103/ul Normal 150-450 [facility] Comment on above: Performed By: #### S PUTGS #### [facility] [address] [place] [address] Dr. Johnna Dixon RBC 4.17 106/ul Critically low 4.70-6.10 [facility] Comment on above: Performed By: #### S PUTGS #### [facility] [address] [address] [address] Johnna Dixon WBC 5.0 103/ul Normal 4.0-11.0 [facility] Comment on above: Performed By: #### S PUTGS #### [facility] [address] [place] [address] Dr. Johnna Dixon CULTURE BLOODon 10-05-2022 Microscopic examination of blood, culture Culture Observations: NO GROWTH AT 5 DAYS. Normal [facility] Comment on above: Performed By: #### B LDCX2 #### [facility] [address] [place] [address] Dr. Johnna Dixon Microscopic examination of blood, culture Culture Observations: NO GROWTH AT 5 DAYS. Normal [facility] Comment on above: Performed By: #### S PUTGS #### [facility] [address] [place] [address] Dr. Johnna Dixon CULTURE SPUTUMon 10-05-2022 CULTURE SPUTUM Culture Observations : NORMAL RESPIRATORY JONTAAN. Normal [facility] Comment on above: Performed By: #### S PUTGS #### [facility] [address] [place] [address] Dr. Johnna Dixon Covid-19 PCR (CVDTB)on 09-19 SARS-CoV-2 (COVID-19) RNA REX+probe Ql (Unsp spec) Not detected Normal NOT DETECTED [facility] Comment on above: Result Comment: This test is not yet approved or cleared by the [place] FDA. When there are no FDA-approved or cleared tests available, and other criteria are met, FDA can make tests available under an emergency access mechanism called an Emergency Use Authorization (EUA). The EUA for this test is supported by the [place] of Health and Human Service's (HHS's) declaration [...] SARS-CoV-2. Performed By: #### C VDTB #### [facility] [address] [place] [address] Dr. Johnna Dixon LACTATE/LACTIC ACIDon 2022 Lactate [Moles/Vol] 1.2 mmol/L Normal 0.4-2.0 [facility] Comment on above: Performed By: #### L ACT #### [facility] [address] [place] [address] Dr. Johnna Dixon Lactate [Moles/Vol] 2.4 mmol/L Critically high 0.4-2.0 [facility] Comment on above: Performed By: #### L ACT #### [facility] [address] [place] [address] Dr. Johnna Dixon Lab Reportson 10-05-2022 Lab Reports [id number]:[id number] Normal [facility] PROF CHEM 8 (BAS METB)on Anion gap [Moles/Vol] 12.6 mmol/L Normal [facility] Comment on above: Performed By: #### B MP #### [facility] [address] [place] [address] Dr. Johnna Dixon Calcium [Mass/Vol] 8.9 mg/dL Normal 8.5-10.1 [facility] Comment on above: Performed By: #### B MP #### [facility] [address] [address] [address] Johnna Dixon Chloride [Moles/Vol] 106 mmol/L Normal 98-107 [facility] Comment on above: Performed By: #### B MP #### [facility] [address] [address] [address] Johnna Dixon CO2 [Moles/Vol] 25.8 mmol/L Normal 21.0-32.0 [facility] Comment on above: Performed By: #### B MP #### [facility] [address] [address] [address] Johnna Dixon Creatinine [Mass/Vol] 1.41 mg/dL Critically high 0.70-1.30 [facility] Comment on above: Performed By: #### B MP #### [facility] [address] [address] [address] Johnna Dixon EGFR-AF LITHUANIAN >60 Normal >=60 [facility] Comment on above: Performed By: #### B MP #### [facility] [address] [address] [address] Johnna Dixon EGFR-NON AF LITHUANIAN 50 mL/min/1.73m2 Critically low >=60 [facility] Comment on above: Performed By: #### B MP #### [facility] [address] [place] [address] Dr. Johnna Dixon Glucose [Mass/Vol] 111 mg/dL Critically high 74-106 T [facility] Comment on above: Performed By: #### B MP #### [facility] [address] [address] [address] Johnna Dixon Potassium [Moles/Vol] 3.4 mmol/L Critically low 3.5-5.1 [facility] Comment on above: Performed By: #### B MP #### [facility] [address] [address] [address] Johnna Dixon Sodium [Moles/Vol] 141 mmol/L Normal 136-145 [facility] Comment on above: Performed By: #### B MP #### [facility] [address] [address] [address] Johnna Dixon Urea nitrogen [Mass/Vol] 17.0 mg/dL Normal 7.0-18.0 [facility] Comment on above: Performed By: #### B MP #### [facility] [address] [address] [address] Johnna Dixon Urea nitrogen/Creatinine [Mass ratio] 12.1 mg/mg Normal [facility] Comment on above: Performed By: #### B MP #### [facility] [address] [address] [address] Johnna Dixon SPUTUM GRAM STAINon 10-06-19 COMMENTS Normal [facility] Comment on above: Performed By: #### S PUTGS #### [facility] [address] [place] [address] Dr. Johnna Dixon DIPHTHEROIDS [facility] Comment on above: Performed By: #### S PUTGS #### [facility] [address] [place] [address] Dr. Johnna Dixon EPITHELIALS <25 Normal [facility] Comment on above: Performed By: #### S PUTGS #### [facility] [address] [place] [address] Dr. Johnna Dixon FUNGAL ELEMENTS [facility] Comment on above: Performed By: #### S PUTGS #### [facility] [address] [place] [address] Dr. Johnna Dixon GRAM NEG BACILLI FEW [facility] Comment on above: Performed By: #### S PUTGS #### [facility] [address] [place] [address] Dr. Johnna Dixon GRAM NEG DIPPLOCOCCI Normal [facility] Comment on above: Performed By: #### S PUTGS #### [facility] [address] [address] [address] Johnna Dixon GRAM POS BACILLI [facility] Comment on above: Performed By: #### S PUTGS #### [facility] [address] [place] [address] Dr. Johnna Dixon GRAM POSITIVE COCCI FEW Normal [facility] Comment on above: Performed By: #### S PUTGS #### [facility] [address] [place] [address] Dr. Johnna Dixon WBC (Bld) [#/Vol] 10*3/uL Normal [facility] Comment on above: Performed By: #### S ANA #### [facility] [address] [place] [address] Dr. Johnna Dixon SYMPTOMATIC COVID-19 ANTIGEN on 10-05-2022 EUA Statement SEE BELOW Normal [facility] Comment on above: Result Comment: This test [...] sooner. Performed By: #### C GREERS #### [facility] [address] [place] [address] Dr. Johnna Dixon SARS-CoV-2 (COVID-19) RNA REX+probe Ql (Unsp spec) Negative Normal NEGATIVE [facility] Comment on above: Performed By: #### C VDMIKALAS #### [facility] [address] [place] [address] Dr. Johnna Dixon XR CHEST 1 Von [...] SOCORRO SERRANO Date: 2022-10-05 11:44 Normal [facility] Coding Summary.on 10-01-2022 Coding Summary. CD:[id number] Ww +PGhlYWQ+[id number] EUytP5rH4CKTDeFMtfyHVG AMWxVApArsyCjEU5jjOWtV XJu IC8+AN4eQBNySypuhBDyl9 Z1rKG7N66abu0pBUyanTG9 UZRcHoRhceyqm2uikGq1CP cuNmluOyBt OQNctF82OXG8mX83Gp31zJ VsoKWxv1xjgTc2WgQbYDHf XRV5oCrlIDajq2CqDYJjQ7 5laOUrn1U9 EFDuvRfqtCTyRhXtoTO2gI 3eWSwxnjkdl3xjttjrExa6 ua07aIAqt4B1nNB2P5Tfpa W9RWJnrNYy DqtvxTWKdY6qbqeym3wcks exOuZbYQZiKCf0DRn1CFMb uMvvJcXiEJ59VLK4NIYyfv JdI0ArYECb pFzvFwT6u5B9Rv5CR1PJLe fjW7UOYIJSGGempDG+PC90 zz64E6SzTvkhAwb6YVDdFV F3jVR9aG1y BEByEUxtj1D2rTB7D7Ktxe Fqax9gw1sjBHBkNXfvT47h dFHhw8A0SWBqbTY1IBOzjK udDwHczT91 Oyc+VKQjzVbux6HnTaaij8 edr2ngpCk2TrteSYKcriDh dToaKZR4g0CdYr0yVNLjfE L5jQS2jO6r KuOeMlS1CQxaC463FnSynY BkQsolW34lU9MqvVF+PHRy Ybn8BPYltWqbDV1aO0KvZQ RpbmctbGVm vQmtND2gXVKbjnjrZLTqyR 5yPBLkH0k4CuQxCuP9JUmq V0RrBXDltbatVo62wM4iPm VkElP7MQot Q6EnmfV3GFNkjKCrUHmmSH K6T22zf5D4VXVtFKWnZZA1 fXD7oE5kqSbiaroheEAumR sgdmVydGlj QZooFScjI027RRGtxKsmUl NvZGluZyBEYXRlOiAgMDQv MTMvMjAyMzwvdGQ+PHRkIH J7pHcxHQCu cAKgUUgcPq2cxNaiaFlxQW 2rCNFbjhqjZXNjuF2cPQLo fSXeqHrpTH2mBUYdjfcpe7 99GcCzKEK5 POHerLXsG9NnuR0aVgYtEY JpUZAdE5YhiGAnRBclS801 AQpySrT9OPUbsdOmU5VsLK FsaWduOiB0 l8Z0Zt1Dn8OivksuE4QohT OjMlKxPjiyMGc0C9PeYqpq dHI+EQ18JSWtLW68KZy2BB F7bZlvEGco ELJeK2FjsP5cFfRpAMEzNP RkOyc+PHRhYmxlIHdpZHRo GNokWMIuUmGexYbhMR0aAs 9yZGVyLWNv bWpjyVLcRtXpj8blEJKkCY fkVY2cfXdwO7TcvYD8UVVt t1i3Aw68P66oW3LanAQ+PG DliQC3dXC7 wX2yErGyLzL4UZreR307Hj GwzXCmJoaem8ewn6qzfMq5 RuX1WDYxsuNiaYtoXJD4n4 UtLj64O09s IHdpZHRoPSIxNSUiIHZhbG jmbd3qgX6tVi3+PGNvbCB3 xAB8pE3dCpLhIeJ5BQrtB8 49InRvcCIv Unutd9lls4btwGp8ZkOeBR NiuvTdnAdrRQI7j5LpVs07 D9LklJlix1PaGsx3cw75aS Bfz2P0gJG2 B0OqTAWjfpjcmMYqhRkwSD 7kWLMnlgghWRAfqL3aWSKg X1q5BkSpVgD2JFlwC3Hzgu R8MHTlzCKo TRFgnQDHkE8cbgmso9pkoa jzJyRoODMoTMk0GLo7VJTq kQqiGiQnOHV9PeH6GCA5nH WqcD5mzRex lgxvsG2gBps+GKK0uBLtwF AJNM5qKmonpHD+PHRkIHN0 qZmrYMvxDPAnzY5qTGTwM0 v6BzMuSkN1 EPzhQ0TfmqQ2PIWpxDZuPP NxyWGUqI3apoasl2hqyefg JeFjAZZpCNq9RIs4LWMcfZ duOiBsZWZ0 JqV7NPG7gUJmdQ9vgPglnp rpdC6qMrz+QmlydGggRGF0 GPd2G6EfOnq4NGSqiJhkYZ 0ncGFkZGlu Qv6hkXgxvTsdFZ6iTQRlst fhp932IyLio5hnNWTgmNIl KQagOFW1B59qg9J0FAEsWO BvIIX2zOJ2 tV1twScvxggevZHjxSfitl JvkQpwFSdcBJmcG715EOJj hVfySeDfRNi7V7AdFgb6QX LtiRewHV9v cRCwGHdsAa5oiMkcwHouAK 3lYRPquteho694PvQfw4if DREauFXiVOxsRDI5L84df4 H5FQJmEPDk PTL2nDR2uQ6jfGzfjbzwdJ VmdDsgdmVydGljYWwtYWxp U706SWTkdQdqFcAnmFv6J2 GrDty7ZOYf cIktCM3ouDBbXNjvKx3wrZ pexCwsUF9oZHLmnfggk624 BjTkz1cdGAWdtUUdXGmrRA N6D37mw5C5 IQDwPDEiCVK8uCO9nE1dbB lnbjogbGVmdDsgdmVydGlj GWrmMApaI460BWZmeYtaNy BhdGllbnQg VSdvNMq1Y9RzAbghjYX+PC 44PRCgXD84cLHypJQyc6rr dGw4EcRxQNDzHNT2kXvlFZ dic8CpMADl V56vnRJng9X2ASYvvXsgsD FyXqDqeLN7gY6qLFwcfqzh x7eebmgdUryuv9gmwt69pX 97N34nKRea ZHRoPSIzMCUiIHZhbGlnbj 1frD6kGx3+XPYswNT3qLP4 bZ1oRIBwOyI1DUbpU935Ga RvcCIvPjxj t0cuj4pnhPz3TsD0XCRmtt EizMnbCJI6q6YiSf00C50g IHdpZHRoPSIyMCUiIHZhbG ccss9vkG1d Ii8+QBSfxNT2qHV3fA2iDj SyDfS1WOdaV251HzVwnARe VlcaQ17xX6LctEK+PHRyPj e7SSPhdOut JC0csTLhHNjnRh9nVLP9Qp IcPcGkHTrsM2OhMBOphzgc ycaooTH3RUGvOMOjmA90Ya 9udDogMTBw rGFYmQ9ykcqgn4rzjzffMk MlSRHkNIb8JNt9JORnsBmz PvTzVKJ3CuA2JIU1wNWtjU 1hbGlnbjog aU6pT8AtNOVlvhfsSh58hY 4rExVnXxK5YBsoBwp+S0xJ OdoBRWGiUEaUYQQXKO16N8 LhEra7ZIPd rCubGE6sqGOfAYngFd2evG dqkCdbIC0oJBFbqvdnFFQx kF0aKTYuxYZcpJwkJX3jHO Owfruru808 VrCpSRX7VVXujFRaO0YipU 6gJiUeLYJeGDGfE5OxmZUf EAliC663NUwsLzI2ONHakn XkI2NjRDYz lXskKsC4v4H3Gk2kJL6jIK 4yHQJtQD58FN26pTLwl5B7 vZU0U9VyBHIirqbuohzdhY A8PETuHKAt cO09tMPaJJrhIr9mk5S8j1 02SBSyGFVnmH87Ej0amVmm OICryRFXdQ2zxaseb7gemu ogIzAwMDAw FHl4WRf0WAAwxKjkQnCxMK D2WcP8TDR2sTZvjX4rvAze oiqyqU3nUrz+NzEgWWVhcn A7O6XkNzj8 XOPugWjpXP9djADoGOfjCc 0soDxcbBxnMQ2lKAZzpdyk MMUekS7oHCZsjTNltHrdIQ 4wNTBpbjtm b342UtGsKZC3XLSnfFSzC8 ZzaA7rFdKzIDBpYLSxU4Qr eKBhGYtcW625KEihYnE1DR IlytVlP3Lf FXLgzTcdXoU0d0A2El9IZK qhPF36SY31fLNav8W5jFK7 O6CaCQGeflegsiywhMZ4TO LvHCMqaK35 qWDbLLxuOf4zw1J6t538EU CvEOEefA34Yl2fzSkeWBXa tDXUcY7tmgdxr3nchcbfVa AwMDAwMDt0 ERy2GDFhvRovKfPbRLP2Nj S9DUW7cEOfbV9yzKprdezm kI5zDqc+B3Q5yWB0qWPezU wvdGQ+PC90 gn91R6KcZppgFmp6OHBsUB B7zPD9rJ3rRTNhHDzej7P2 eYT3E1OcvbKybx0gw8lpFT KhWMkqM44f aDVdc5T3AUMzeNO8HCHkhI xzMeCjmC90Fbn+PGNvbGdy q6OrIoluo9uyc1lfaZz9Uv MwJSIgdmFs pFfqVOT0c6TyOx46M80dIE dpZHRoPSIzMCUiIHZhbGln vk0olX6oKp3+QKMgtAR4cL S1cD4lNqIp BmJ4HOzfH265UvByfXErFe poj5gik8iwhYx0ShDjCFIv ozSwhEdsFKM5t0YdOe35Q6 OqlCkhu8Mm Asj3ir52wJFul4B8uHJ5A6 WfWLZprrekzQRmtOqkFK7t RBJcjuwcSQKqlX7qVYQyI1 f6ZpIcFoZ4 DMbhR8RbtuB2PTUfaTCkWU TvuYVGgH3vtlffy2ciicmr SnEhVJViLRy5VUc0TFKbgN duOiBsZWZ0 JdT1LDT5yVJffQ2klPwsrk vnkI3eBuf+STn3b0higZMk IX3kjBR9PC93KY58uZEao4 K7nQA3M7Nx YLRfjhjxcinibVM4VIAuGW JzeI28Go3yoCztJa9nIOKr LBE3NWGhlWZfX7WtsW0eCd AjMDAwMDAw H0YwpSQdPUnuB909ZFerPx C7THAtieIyA1SvQUJyuLkk JoG0p2J4Vb0CNV01WQ59LO 85gWLuy4V8 cEO2A5HwRYFznsjaakxxcW V4YTNjFXMaaW61Dy0trRap Kq0hKNUhXYU4AOLxmGHiD3 NfkK7nStFx HYDzNEGvY8HxaCZyKKxvI6 35DAoeGnF4HVDjomAwC8Ow MYPoxBqnOlE2p0L2Ey2QSd 46CP66XK21 tFJdv7T7wEN2T7CgMRYojd wxgoheuEI9CHDxPFZweB97 Xq6btVdbRr2jEPMcOOZ0CX CfhHByX1Fm lH5fZeEpBJKaBMYzZ0OdrX IlBNicW446HHlkAlZ0WMFo gqKyH7SsJMDfoCxsQyH6i0 R0Dw3RINvx fgn1Y2EkAwyjpGA+PC90YW MgZF17jLQmuTPsu9proMf1 AeGuIXUzJYQ9cKaeNYfge4 PoBZLiD59p gVOnd3Q0 (more content not included)... Normal [facility] Consent for Procedure/Surger yon 09-29-2022 Consent for Procedure/Surgery [id number]#1.00 CD:127 [facility] Consent for Treatmenton 09-19 Consent for Treatment [id number]#1.0 0CD:127 [facility] IntraOperative Documentson 0 09-29-2022 IntraOperative Documents [id number]#1.00 CD:127 [facility] Main OR Intraoperative Recor don 09-29-2022 Main OR Intraoperative Record IntraOp Document Type FTURO Summary Primary Physician: Lionel CARRINGTON MD Finalized Date/Time: 09/29/22 10:53:58 Pt. Name: MARY DIAZ/Sex: 1950 Male Med Rec #: [id number] Physician: Lionel CARRINGTON MD Financial #: [id number] Pt. Type: O Room/Bed: / Admit/Disch: 09/29/22 [...] Nanci Luna Role Performed Surgeon - Primary Tab Builder - Primary Scrub - Primary Time In [...] PAULINA Rene RN, Ruthann 09/29/22 10:53 Normal [facility] Main OR Preoperative Recordo n 09-29-2022 Main OR Preoperative Record Holding Area Document Type FTURO Summary Primary Physician: Lionel CARRINGTON MD Finalized Date/Time: 09/29/22 10:52:30 Pt. Name: MARY DIAZ/Sex: 1950 Male Med Rec #: [id number] Physician: Lionel CARRINGTON MD Financial #: [id number] Pt. Type: O Room/Bed: / Admit/Disch: 09/29/22 [...] No Pain Comment: na Skin Integrity Intact, [place], Warm, & Dry Vitals - EU Blood Pressure 148/82 Pulse 53 bpm Respirations 16 br/min SPO2 96 % RN Reviewed Yes Last Modified By: PAULINA Rene RN, Ruthann 09/29/22 10:52:28 General Comments: temp:36.5 Finalized By: PAULINA Rene RN, Ruthann Document Signatures Signed By: Iram Thomas LPN 09/29/22 10:28 PAULINA Rene RN, Ruthann 09/29/22 10:52 Normal [facility] Operative Reporton Operative Report Patient: MARY [...] with antibiotic coverage, Follow up arranged. Normal [facility] Comment on above: Result Comment: Elec tronically Signed By: DEVONTE NOBLE, Lionel Gama.tacos\Date and Time Signed: 09/29/22 10:57 EDT Urine Cytology ([facility])on 0 09-28-2022 Urine Cytology Diagnosis Info Invalid Interpretation Code [facility] Comment on above: Result Comment: A:Ur ine,Urine:Voided Interpretation - MicroScopic Description - Adequacy - Gross Description Site ID:A color Yellow fixative Alcohol Specimen designated Urine received in alcohol preservative and labeled with the patient?s name, consists of 40ml clear yellow fluid. Electronically signed by : on: 09/28/2022 09:14:07 Performed By: #### 1 [id number] ####[facility] [id number] [place] [address] US SINGLE QUAD RT UPPERon US SINGLE [...] SOCORRO HUFFMAN Date: 2022-09-24 09:46 Normal [facility] AMYLASEon 09-21-2022 Amylase [Catalytic activity/Vol] 78 U/L Normal 25-115 [facility] Comment on above: Performed By: #### C VDTBH #### [facility] [address] [place] [address] Dr. Johnna Dixon CBC AUTO DIFFon 09-21-2022 BASO # 0.0 103/ul Normal 0.0-0.1 [facility] Comment on above: Performed By: #### C VDTBH #### [facility] [address] [place] [address] Dr. Johnna Dixon Basophils/100 WBC (Bld) 0.5 % Normal 0.2-2.0 [facility] Comment on above: Performed By: #### C VDTBH #### [facility] [address] [place] [address] Dr. Johnna Dixon EO # 0.1 103/ul Normal 0.0-0.7 [facility] Comment on above: Performed By: #### C VDTBH #### [facility] [address] [place] [address] Dr. Johnna Dixon Eosinophils/100 WBC (Bld) 1.9 % Normal 0.9-7.0 [facility] Comment on above: Performed By: #### C VDTBH #### [facility] [address] [place] [address] Dr. Johnna Dixon Erythrocyte distribution width (RBC) [Ratio] 14.5 % Normal 11.0-15.0 [facility] Comment on above: Performed By: #### C VDTBH #### [facility] [address] [place] [address] Dr. Johnna Dixon Hematocrit (Bld) [Volume fraction] 39.1 % Critically low 42.0-54.0 [facility] Comment on above: Performed By: #### C VDTBH #### [facility] [address] [place] [address] Dr. Johnna Dixon Hemoglobin (Bld) [Mass/Vol] 12.8 g/dL Critically low 14.0-18.0 [facility] Comment on above: Performed By: #### C VDTBH #### [facility] [address] [place] [address] Dr. Johnna Dixon IG # 0.05 10e3/ul Critically high 0.00-0.03 [facility] Comment on above: Performed By: #### C VDTBH #### [facility] [address] [place] [address] Dr. Johnna Dixon IG % 0.7 % Critically high 0.0-0.5 [facility] Comment on above: Performed By: #### C VDTBH #### [facility] [address] [place] [address] Dr. Johnna Dixon LYMPH # 2.0 103/ul Normal 1.2-3.8 [facility] Comment on above: Performed By: #### C VDTBH #### [facility] [address] [place] [address] Dr. Johnna Dixon Lymphocytes/100 WBC (Bld) 27.4 % Normal 20.5-60.0 [facility] Comment on above: Performed By: #### C VDTBH #### [facility] [address] [place] [address] Dr. Johnna Dixon MANUAL DIFF REQ NO Normal [facility] Comment on above: Performed By: #### C VDTBH #### [facility] [address] [place] [address] Dr. Johnna Dixon MCH (RBC) [Entitic mass] 31.3 pg Normal 25.9-34.0 [facility] Comment on above: Performed By: #### C VDTBH #### [facility] [address] [place] [address] Dr. Johnna Dixon MCHC (RBC) [Mass/Vol] 32.7 g/dL Normal 29.9-35.2 [facility] Comment on above: Performed By: #### C VDTBH #### [facility] [address] [address] [address] Johnna Dixon MCV (RBC) [Entitic vol] 95.6 fL Critically high 80.0-94.0 [facility] Comment on above: Performed By: #### C VDTBH #### [facility] [address] [place] [address] Dr. Johnna Dixon MONO # 0.5 103/ul Normal 0.3-0.8 [facility] Comment on above: Performed By: #### C VDTBH #### [facility] [address] [place] [address] Dr. Johnna Dixon Monocytes/100 WBC (Bld) 6.9 % Normal 1.7-12.0 [facility] Comment on above: Performed By: #### C VDTBH #### [facility] [address] [place] [address] Dr. Johnna Dixon NEUT # 4.7 103/ul Normal 1.4-6.5 [facility] Comment on above: Performed By: #### C VDTBH #### [facility] [address] [place] [address] Dr. Johnna Dixon Neutrophils/100 WBC (Bld) 62.6 % Normal 43.0-75.0 [facility] Comment on above: Performed By: #### C VDTBH #### [facility] [address] [place] [address] Dr. Johnna Dixon Platelet mean volume (Bld) [Entitic vol] 9.3 fL Critically low 9.5-13.5 [facility] Comment on above: Performed By: #### C VDTBH #### [facility] [address] [place] [address] Dr. Johnna Dixon PLT 235 103/ul Normal 150-450 [facility] Comment on above: Performed By: #### C VDTBH #### [facility] [address] [place] [address] Dr. Johnna Dixon RBC 4.09 106/ul Critically low 4.70-6.10 [facility] Comment on above: Performed By: #### C VDTBH #### [facility] [address] [place] [address] Dr. Johnna Dixon WBC 7.4 103/ul Normal 4.0-11.0 [facility] Comment on above: Performed By: #### C VDTBH #### [facility] [address] [place] [address] Dr. Johnna Dixon LIPASEon 09-21-2022 Lipase [Catalytic activity/Vol] 114.0 U/L Normal 73.0-393.0 [facility] Comment on above: Performed By: #### C VDAGS #### [facility] [address] [place] [address] Dr. Johnna Dixon LIVER PROFILEon 09-21-2022 Albumin [Mass/Vol] 3.9 g/dL Normal 3.4-5.0 [facility] Comment on above: Performed By: #### C VDTBH #### [facility] [address] [place] [address] Dr. Johnna Dixon Albumin/Globulin [Mass ratio] 1.6 {ratio} Normal [facility] Comment on above: Performed By: #### C VDTBH #### [facility] [address] [place] [address] Dr. Johnna Dixon ALP [Catalytic activity/Vol] 59 U/L Normal 46-116 [facility] Comment on above: Performed By: #### C VDTBH #### [facility] [address] [place] [address] Dr. Johnna Dixon ALT [Catalytic activity/Vol] 23 U/L Normal 16-63 [facility] Comment on above: Performed By: #### C VDTBH #### [facility] [address] [place] [address] Dr. Johnna Dixon AST [Catalytic activity/Vol] 8 U/L Critically low 15-37 [facility] Comment on above: Performed By: #### C VDTBH #### [facility] [address] [place] [address] Dr. Johnna Dixon BILI, CONJUGATED 0.1 mg/dL Normal 0.0-0.2 [facility] Comment on above: Performed By: #### C VDTBH #### [facility] [address] [address] [address] Johnna Dixon Bilirubin [Mass/Vol] 0.3 mg/dL Normal 0.2-1.0 [facility] Comment on above: Performed By: #### C VDTBH #### [facility] [address] [place] [address] Dr. Johnna Dixon Globulin (S) [Mass/Vol] 2.5 g/dL Normal [facility] Comment on above: Performed By: #### C VDTBH #### [facility] [address] [place] [address] Dr. Johnna Dixon Protein [Mass/Vol] 6.4 g/dL Normal 6.4-8.2 [facility] Comment on above: Performed By: #### C VDTBH #### [facility] [address] [place] [address] Dr. Johnna Dixon PROF CHEM 8 (BAS METB)on Anion gap [Moles/Vol] 13.4 mmol/L Normal [facility] Comment on above: Performed By: #### C VDTBH #### [facility] [address] [place] [address] Dr. Johnna Dixon Calcium [Mass/Vol] 8.9 mg/dL Normal 8.5-10.1 [facility] Comment on above: Performed By: #### C VDTBH #### [facility] [address] [place] [address] Dr. Johnna Dixon Chloride [Moles/Vol] 106 mmol/L Normal 98-107 [facility] Comment on above: Performed By: #### C VDTBH #### [facility] [address] [place] [address] Dr. Johnna Dixon CO2 [Moles/Vol] 25.6 mmol/L Normal 21.0-32.0 [facility] Comment on above: Performed By: #### C VDTBH #### [facility] [address] [place] [address] Dr. Johnna Dixon Creatinine [Mass/Vol] 1.21 mg/dL Normal 0.70-1.30 [facility] Comment on above: Performed By: #### C VDTBH #### [facility] [address] [address] [address] Johnna Dixon EGFR-AF LITHUANIAN >60 Normal >=60 [facility] Comment on above: Performed By: #### C VDTBH #### [facility] [address] [address] [address] Johnna Dixon EGFR-NON AF LITHUANIAN 59 mL/min/1.73m2 Critically low >=60 [facility] Comment on above: Performed By: #### C VDTBH #### [facility] [address] [address] [address] Johnna Dixon Glucose [Mass/Vol] 115 mg/dL Critically high 74-106 [facility] Comment on above: Performed By: #### C VDTBH #### [facility] [address] [address] [address] Johnna Dixon Potassium [Moles/Vol] 4.0 mmol/L Normal 3.5-5.1 [facility] Comment on above: Performed By: #### C VDTBH #### [facility] [address] [address] [address] Johnna Dixon Sodium [Moles/Vol] 141 mmol/L Normal 136-145 [facility] Comment on above: Performed By: #### C VDTBH #### [facility] [address] [address] [address] Johnna Dixon Urea nitrogen [Mass/Vol] 19.0 mg/dL Critically high 7.0-18.0 [facility] Comment on above: Performed By: #### C VDTBH #### [facility] [address] [address] [address] Johnna Dixon Urea nitrogen/Creatinine [Mass ratio] 15.7 mg/mg Normal [facility] Comment on above: Performed By: #### C VDTBH #### [facility] [address] [address] [address] Johnna Dixon Patient Educationon 09-22-19 23 [...] if anything looks unusual. Men with a fejvsh-ubtb-sgajcs risk for skin cancer may want to see a commissioning specialist (printed circuit board panels plater) for an annual body check. Where to find more information ? National Cancer [place]: https://www.cancer.gov /about-cancer/screenin g ? Centers for Disease Control and Prevention: https://www.cdc.gov/ca ncer/dcpc/prevention/s creening.htm ? [employer]: https://www.cancer.org /latest-news/4-cancer- xzlvucwkq-octil-fuk-me n.html Contact a health care (more content not included)... Normal [facility] Urine Cytology ([facility])on 0 09-21-2022 UC Method of Extraction Voided Normal [facility] Comment on above: Performed By: #### 1 [id number] ####[facility] [id number] [place] [address] Number of Jars 1 Invalid Interpretation Code [facility] Comment on above: Performed By: #### 1 [id number] ####[facility] [id number] [place] [address] Specimen Urine Normal [facility] Comment on above: Performed By: #### 1 [id number] ####[facility] [id number] [place] [address] Type of Service Technical Only Normal [facility] Comment on above: Performed By: #### 1 [id number] ####[facility] [address] [employer] [place] [address] Ambulatory Visit Summaryon 0 08-17-2022 Ambulatory Visit [...] NOBLE, Lionel Burgos Where: [facility] Normal [facility] CREATININEon 08-04-2022 Creatinine [Mass/Vol] 1.31 mg/dL Critically high 0.70-1.30 [facility] Comment on above: Performed By: #### C JANIS #### [facility] [address] [address] [address] Johnna Dixon EGFR-AF LITHUANIAN >60 Normal >=60 [facility] Comment on above: Performed By: #### C JANIS #### [facility] [address] [address] [address] Johnna Dixon EGFR-NON AF LITHUANIAN 54 mL/min/1.73m2 Critically low >=60 [facility] Comment on above: Performed By: #### C JANIS #### [facility] [address] [address] [address] Johnna Dixon CTA NECK WO W [...] by: ALLI CORTES Date: 2022-08-04 14:04 Normal [facility] US CAROTID ART BILon 023 US CAROTID [...] by: ALLI CORTES Date: 2022-07-28 12:00 Normal [facility] Ambulatory Visit Summaryon 0 07-20-2022 Ambulatory Visit Summary MARY DIAZ :1950 Visit Date:07/20/2022 Ambulatory Visit Instructions Your Diagnosis History of bladder cancer Tests Performed Urnls Dip Stick Auto w/o Microscopy POC 18983 Your Care Team Attending Physician - Lionel [...] AM EST With: Where: [facility] Normal [address] [place] [address] [place] [address]- \.br\ Medications\.br \ What How Much When [...] Urnls Dip Stick Auto w/o Microscopy POC 53834 (07/20/2022)\.b r\ POC Test Comments - UA prior to Mitomycin tx\.br\ Bilirubin Urine Dipstick - Negative\.br\ Blood Urine Dipstick - Negative\.br\ Glucose Urine Dipstick - Negative\.br\ Ketones Urine Dipstick - Negative\.br\ Leukocytes Urine Dipstick - Negative\.br\ Nitrite Urine Dipstick - Negative\.br\ Protein Urine Dipstick - Negative\.br\ Specific [place] Urine Dipstick - 1.020\.br\ Urine Appearance Urine [...] for.\.br\ Acid reflux\.br\ Cancer of prostate\.br\ \.br\ [facility] Consent for Procedure/Surger yon 07-15-2022 Consent for Procedure/Surgery [id number]#1.0 0CD:127 Normal [facility] Consent for Procedure/Surgery [id number]#1.0 0CD:127 Normal [facility] FISH ([employer])on 0 07-15-2022 [facility] FISH Diagnosis Info Invalid Interpretation Code [facility] Comment on above: Result Comment: A:Ur [...] on: 07/15/2022 15:42:11 Performed By: #### 1 [id number] #### [facility] [address] [place] [address] Coding Summary.on 07-08-2022 Coding Summary. CD:[id number] Gh 0bWw+PGhlYWQ+XD7NBYRpR 14ztEEmiI0OD5qBYX6PPEQ WLLRBBG7VUX4teGS3YRqlU 2VybiAv OrdydBYrMK74YXp6JTY6zN rzVDlcrF7soONaM4a3GaFv YD30gH20NPrvPQQsAaZ6Tu ZpbjsgbWFy U3teXdYtqJQwBzq+PHRhYm xlIHdpZHRoPScxMDAlJyBz uAdmUX2iKx3wHDBmXXDviO xhcHNlOiBj r5wpUNGsUTxtXS3hjTbyU0 AgpVG8KBTki2d8Dg49lNF+ VETkXUJ3tNeoIEwmg879Nc Pgd0mhKWC3 wRBvTLnqOND2E58ro0Y9UB GqDGIrLTN6zCU3pT5roXvs riorQ5MqgPYaSvF0BOH6pC MdrC7xkVxg obsbxY1dGph+Z83ZCC5KZO NDUQ2MYzv3A5QtItkumKL+ AY86GVEtPM48tVHpxICma3 yxxXg0XdYn XVPtTUI0dDtkLArhs0XySI IdX39aeQBhc2C2QDNgeUcb qNTbBhDhzQT1mW3xCIkgyw ldz2cyynpl Imgfi4thyf81xV53B85eEM omDGEfHRB7XLKjULZicBxk ge0tcQ6eUd8+STuus5mie1 jgvNj9EhDk WTRwceIyeEaqLBK0c6WkFj 96C7QhnMrsr5LfHde6kt57 lDDls6W9wVA3BXxjWKLxvZ 8dYBhcAiW3 LTVdXfYevV95lOMeVDggXc 9bmAkubPilUW1vHTWtwpwa WDVvnI8jKNGnhSEgqEhuHT 4wNTBpbjtm c096IhOnVVW4EPDygPFnH1 ZizN1lPnTgMGAfWCFpC1Fd kXTlMBddK272CZxfImE3PE AtmqAiN8In GEFweSvuUpB0y4W4Ga8No0 MbamhjIYW4SDdaSBFbWjK9 VgSqMpF5W6EkSjc9LVBkdU dvYH4jO0Ik ZMNjhvzcmzuicJN1JSIvMT IqrB92zQJdRMbgNy5hm3K3 t088BYHwEKWjxI28Ym4osS ogMTBwdCBU jQ6eapgkt6jtgstrPiQwES SmHIu2BHf2SBIvmOabMmZv DGE4ZoG1PCZ7mMZnnS0xkJ ckujbwoX5s Oyc+J32nxP9dBTJ8DEF1nq ktNCJsutFeBN16PN72A6Hh PjwvdGFibGU+PGRpdiBzdH vaVV1xYeXf l3pdq2AcZNphI6YhUUAxCD pzLmi6FMTaGHZ4rGI7iG7y TGKsZEycl7F6vTJ2A5Hymm Pzek7tl0xu SPIeMBieX38txEWsy4B0LU WbzVF3DIHtgVcdRyApyU33 Oyc+CUNdzWosl0WlJghdc8 rkm3pgxXr9 VgTvEXLkteYgqAczDJI5d9 ZxTh45C11bSBvaDPOhIBNz BRCjTALonUoxjr7nfL6vCp 8+PGNvbCB3 tDR2uT3xPNMiNkG4IYwqI9 96ApRhbPHcZlrin8vxn8uf fZw2TtXkONDafxYheMvsAG S6c6TtCj82 T07mXJrqIQKcHBMjFFFjIU LyaUxuxx5axJ3nJe2+PC9j c5tgba32lJ32nHF+PHRkIH C6mWwuRUof KPYshJ4xQWypYmC7HGDgEu DqcK54nNJaMHwqPe4kaBwh xKhoFS8bCFSznesbc305Op Odi9zdOFMc kQFyWHhxJAF1J14ke3H9SW DwUCStCQZ6gJE4cY9xzPim bjogbGVmdDsgdmVydGljYW pmFTkhP641 IHRvcDsnPlBhdGllbnQgTm BbEVq6M7UtFgc2QJIztClk UM6wuGNsBJpaHj3amNxdiE xoKA3mCTZu dqcld194BrQcg3ycXHGrbE QkJBpyAXS3P80bv1M2ANXg MGFpOJS3uUX8iB1esQlejo ogbGVmdDsg odIzhRglBLwaMMceC261ZV RvcDsnPkJpcnRoIERhdGU6 IF79HD35hPJwc3N7pNB0V0 BhZGRpbmct rpamoOI0WDNkTDXqzY35Gz 0keZenGt1yDCJwAIB3STCz hEMxL9CgeG1yAfBjGJCpAY BdF6FraSVl CHbpX631SDfxDaL4EZEnpx JhY2DuPJEdzYpwSuW7d6Y9 Jg8VD9D9TW58OI42mNFij4 E4sFY5E4Xw VPCjlmfoqxwceVM4FBTaXO ZclV36Tb0yfYdpUx1dYDJu SBJ8LPBksHEfI1BphY5hSr AjMDAwMDAw A2KnoBQuXLxeX940THzcWz D6AKUwbiObM4CaGHAjzTxq AuF3m6U7Pg4NMBr9NP41RT 18gPVjz9Z3 xXM0T0ToKJTriestsegkaY V3YUOkCSAhfP76Xo0koBut Wi6iEOEiCQW7YFDyxYLoV0 NfiK7cEsFq UFLtIRBoC0WoiGSrSXfaH7 96WLmeOfJ8BPAnrsUrY8Bc XKGdgOfcQfW4z8B2Ey0FNT UuQQ81HDS2 dGN7GN17TX07B4KfDxgpbX FibGU+PHRhYmxlIHdpZHRo ZMncHTAdGmYvqZkrYU5jPw 9yZGVyLWNv pNnzoBInMnSnb3jyDFLsWY vfOV1ijYtpX9WqsOF8ZBNv q1c2Pq99A22wB5VgaUI+PG EmrDK8xAG5 aN1iZrUcObM3MYunK279Pe IfmZTiBhcuz8vks4xmbJm8 RjY1NIMorrLskHbzARE2p5 MhXd07X40z IHdpZHRoPSIxNSUiIHZhbG vjyc5luG7gFt1+PGNvbCB3 yFY6yS3cJpUtZcA8LKvwY1 49InRvcCIv Lypib4rlx1neiNa2JsJpDS XwrtZmhUfzHVJ6y9WgAb13 W9TnxRlwe9DnGal3jl18dK Inp9X6mRB9 R2BsUDNdwrvjiKWyyGgoHH 7zGBRozvcoFCCdxV6nULEd Z5x0PiJeSnP7HBgeD2Iepk F4EOLlhCFy FDwpIIG7A72ui7Z1BCAtBT KvBNT4jJB2rS5hyHowitxp bGVmdDsgdmVydGljYWwtYW bvU771DWUr eVmdIBCrfG1cMYRunKSoaN xqIB6gFHMmojlvIyjGKL0W VTCFYYEIIO0PHgMXCW22NF 32zNTmi5Z7 nOP0G8VpEDFifpsnsbknhH R1TQBsMLTniE34rOSsMTrm At1bo3B8m941LZPdCKVtkL 29Ya5nkKdb WUPfiLKAsB6iyryri4bddd viGxHoVVWdPNc6PWq6ZOBv pDwvUhUrRKV5DvD5QUX9bS PcfT0zfRpm enroiO8rNwk+MDgvMTUvMT q3YXewnNG+NPIbQFY9gEdd YKcuYGYkvZ1kVVGmR4k3Ks BcPrV5FSzg T1HzFBNozpwcMf37oF1uGh NzVhZ5SSnuC4BsmtL4XGTh aZGiDNpgGXT6O51im6T5QU MwMDAwMDA7 dDU9mO2rwEocwqyprDOfaT rptmXzgWfiFSacOEurP103 IHRvcDsnPjcxIFllYXJzPC 01RG35kSUy b3G0yME4R8XcDNMbkppdrx mqvLD8DIPwGNAzvD95sFUs KBmyKc2ro3F6u783TNZfLY OiwS73No2t qDnyNRQfpLHWrV5ukqyjq0 qgchplQlGeWVBsIZk2MYo3 CAHixIdwFhFgRZI8BhL2RP L6wNLvvK7w pSjggjbrjW6vAkc+TWFsZT wvdGQ+ABMqFKL8dDmrDVju DUKsxI1rDBBfM7g0OdCtIv O1AGiuR7Mg RBJqtjigCn68mQ7cNqClZn T0DUloO4AtozI4PTMxxRGr ACnpZIV1W37kf2L5ASNxOP EiXWN1nAJ7 pW2dtGyamttbhXSbdKfzdl BhlYgaORtxKEibI292PRCg cHipPa05cWBjbYkoffO5R9 RkPjwvdHI+ TC38WDZjNS59rMBfbXSof6 twhIa9DhKdGTSzKUY3nMjx FXrbn4WvTNPbL31jgYNmh7 O0MURqqEnm cJZjAgAjeQC0aO4dHCkcyi sib4kzvvswBxhvc9fndz06 iS84H21tRSreYIXfDHIuZH UiIHZhbGln hn5ppG9xYe7+DDWcnBC8oO N2xV8qXaIzWlM7HPfkA473 RfCqdVUsGhvrw5qyr6tcoN s0PaCwLWRn dgFamDhyCNV6h2QnGh61N7 9sIHdpZHRoPSIyMCUiIHZh nPwipq8rjD9qLk2+PC9jb2 fyel09oS97 dHI+ZSEiSRC9tHkyPFbiQV RykA1mAHbtSjI6OLQwEmDs fE42uOSsVNgyRk2chKcodA uhAM6oCNWg lpgco621IqWny5joUYYqhG UjVZaxNGS6P34ot4A3PNTf IODvOVD6aOL3lD5hkSalul ogbGVmdDsg wnKtcKjkYTaiAEtgJ357LI XzrHodKxVfcZBzW5cnxdLM QT1gWhzlxKQ+RBHdSMH6dY xlPSdwYWRk nF6nAOEaE7y6NgUfIcU6GH dcD5MvhdD1KPYabXRkULWn kPIGeC7tkxpoh2gpkvbeNo AwMDAwMDt0 AZl9YZUfuGadQeGhNYR2Oo Z0BQK9xZYzmK5oqEnnjkdj zI5sUtc+RklOOjwvdGQ+PH SpIOM4wXjh GRvyQIJflT9oHJPtR9u9Db OtFqL8NIylA3BdhhF1SRTd zEIqONQoeZSNuL4ffjrjh9 xvcjogIzAw WMBjSKo5BNn4HUEgeUgyAe QaWVT5FjE4HOI8cTWnkS3h uBbyccneiK7oIac+TVJOOj wvdGQ+PHRk UJT3wGddEOzeCPZdfC9cHP VnN6i8KhAgIlE1YPsuZ0Ly bgI3DRPuvSZyZYIeyFLKtR 2pascae4ns rtkvZvMhAVKdKPg7UKa7SQ VtaOqeWpVqUIQ0GhZ1PGE7 zBBweE5pdFrwzxlovE5cVo c+WNP1WAO6 VH66KV22Q6DgGrzteVSaaG U+PHRhYmxlIHdpZHRoPScx PSFjJuSurXfbPZ6aQw6kDT VyLWNvbGxh cHNl (more content not included)... Normal [facility] Consent for Procedure/Surger yon 07-08-2022 Consent for Procedure/Surgery [id number]#1. 00CD:127 Normal [facility] IntraOperative Documentson 0 07-08-2022 IntraOperative Documents [id number]#1. 00CD:127 [facility] Consent for Treatmenton 06-21 Consent for Treatment [id number]#1.0 0CD:127 [facility] Main OR Intraoperative Recor don 07-07-2022 Main OR Intraoperative Record IntraOp Document Type FTURO Summary Primary Physician: Lionel CARRINGTON MD Finalized Date/Time: 07/07/22 13:40:45 Pt. Name: MARY DIAZ/Sex: 1950 Male Med Rec #: [id number] Physician: Lionel CARRINGTON MD Financial #: [id number] Pt. Type: O Room/Bed: / Admit/Disch: 07/07/22 [...] Zora Luna Role Performed Surgeon - Primary Tab Builder - Primary Scrub - Primary Time In [...] PAULINA Rene RN, Ruthann 07/07/22 13:40 Normal [facility] Main OR Preoperative Recordo n 07-07-2022 Main OR Preoperative Record Holding Area Document Type FTURO Summary Primary Physician: Lionel CARRINGTON MD Finalized Date/Time: 07/07/22 13:40:51 Pt. Name: MARY DIAZ/Sex: 1950 Male Med Rec #: [id number] Physician: Lionel CARRINGTON MD Financial #: [id number] Pt. Type: O Room/Bed: / Admit/Disch: 07/07/22 [...] No Pain Comment: na Skin Integrity Intact, [place], Warm, & Dry Vitals - EU Blood [...] PAULINA Rene RN, Ruthann 07/07/22 13:40 Normal [facility] Operative Reporton Operative Report Patient: MARY [...] then a repeat cystoscopy in September. Normal [facility] Comment on above: Result Comment: Elec tronically Signed By: DEVONTE NOBLE, Lionel Gama.tacos\Date and Time Signed: 07/07/22 10:51 EST [facility] FISH ([facility])on 0 07-07-2022 UV Method of Extraction Bladder Wash Normal [facility] Comment on above: Performed By: #### 1 [id number] #### [facility] [address] [place] [address] UV Number of Jars 1 Invalid Interpretation Code [facility] Comment on above: Performed By: #### 1 [id number] #### [facility] [address] [place] [address] UV Specimen Urine Normal [facility] Comment on above: Performed By: #### 1 [id number] #### [facility] [address] [place] [address] UV Type of Service Technical Only Normal [facility] Comment on above: Performed By: #### 1 [id number] #### [facility] [address] [place] [address] Retail - Clinical Noteon Retail - Clinical Note [id number] Normal [facility] XR KNEE RT 4V or >on [...] DEBORAH ZARAGOZA Date: 2022-06-30 17:38 Normal [facility] XR RIBS RT PA Fab 2 XR [...] SOCORRO SERRANO Date: 2022-05-25 14:51 Normal [facility] XR RIBS RT PA Fab 2 XR [...] atelectasis and small pleural effusion Normal [facility] CT CHEST WO CONon 04-18-2022 CT CHEST [...] SOCORRO BANSAL Date: 2022-04-18 16:17 Normal [facility] CULTURE URINEon 03-12-2022 CULTURE URINE Culture Observations : NO GROWTH. Normal [facility] Comment on above: Performed By: #### S ANA #### [facility] [address] [place] [address] Dr. Johnna Li 02-17-2022 L -- ---- Specimen: [id number] Received: 02/17/22 Status: ZACKERY Nails Num: [id number] Spec Type: Surgical Subm Dr: Lionel Carrington MD Tissues: A Urinary Bladder - biopsy (BLADDER TUMOR) Procedures: HE Stain/2, Gross/Micro L4, IHC First AB, IHC Add AB ---- Age/ Patient Sex Location Account Attending Physician ---- Mary Diaz/M [place] [id number] Lionel Carrington MD ---- SPEC NUM: [id number] RECD: 02/17/22 STATUS: ZACKERY NAILS NUM: [id number] JOE: 02/17/22- DR: Lionel Carrington MD ENTERED: 02/17/[address]: SPEC TYPE: Surgical DEPT: S ORDERED: HE Stain/2, Gross/Micro L4, IHC First AB, IHC Add AB ORDERED: HE Stain/2, Gross/Micro L4, IHC First AB, IHC Add AB Supplemental Report Addendum 1 Entered: 02/27/22-1037 This case was sent to 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 Please see [facility] case ( [id number] ) for further details Addendum Signed (signature on file) Sanjiv Correa MD 02/27/22 1037 ---- ---- Specimen: [id number] Received: 02/17/22-981 Status: ZACKERY Nails Num: [id number] Spec Type: Surgical Subm Dr: Lionel Carrington MD Tissues: A Urinary Bladder - biopsy (BLADDER TUMOR) Procedures: HE Stain/2, Gross/Micro L4, IHC First AB, IHC Add AB ---- Patient: Mary Diaz [id number] (Continued) ---- Specimen: [id number] Received: 02/17/22 (Continued) Signed (signature on file) Domi Florez MD 02/18/221899 ---- Specimen: [id number] Received: 02/17/22 Status: ZACKERY Nails Num: [id number] Spec Type: Surgical Subm Dr: Lionel Carrington MD Tissues: A Urinary Bladder - biopsy (BLADDER TUMOR) Procedures: HE Stain/2, Gross/Micro L4, IHC First AB, IHC Add AB ---- Patient: Mary Diaz [id number] (Continued) ---- Specimen: [id number] Received: 02/17/22 (Continued) Pathological Diagnosis Urinary bladder, transurethral resection: - Urothelial proliferation with atypia in a poorly oriented specimen with cautery and crushed artifacts - Detrusor muscle/muscularis propria not present NOTE: This case will be sent to [facility] for consultation and a supplemental report [...] P53 shows wild type pattern of expression. [id number], [id number], 15269 The use of one or more reagents in the above tests is regulated as an analyte specific reagent (ASR). The performance characteristics were determined by the Laboratory of [facility]. Immunohistochemistry assays have not been validated on decalcified tissue. Results should be interpreted with caution given the possibility of false negative results on decalcified specimens. They have not been cleared by the US Food and Drug Administration. The FDA has determined that such clearance or approval is not necessary. (more content not included)... Normal [facility] COVID[place]19 [facility] [place] SARS-CoV-2 (COVID-19) RNA REX+probe Ql (Unsp spec) Negative Normal Negative [facility] Comment on above: Order Comment: Healt hcare Worker?: N Result Comment: Testing for SARS-CoV-2 by RT-PCR This test was developed and its performance characteristics determined by [employer]) and validated at the [facility]. This test has not been FDA cleared [...] is terminated or revoked sooner. PERFORMED BY: [place] [address] PATHOLOGIST MOLD LOFT WORKER DOMI FLOREZ M.D. Performed By: #### C OVID 19 [facility] [place] #### [address] COVID-19 Positive/NegativeOr dered By: Lionel Carrington on 02-13-2022 SARS-CoV-2 (COVID-19) N gene REX+probe Ql (Resp) Negative Negative [facility] Comment on above: Testing for SARS-CoV -2 by RT-PCR This test was developed and its performance characteristics determined by [employer] ([employer]) and validated at the [facility]. This test has not been FDA cleared [...] aPTT Coag (PPP) [Time] 34.8 s 25.1-36.5 [facility] Basic Metabolic Panelon 01-19 Calcium [Mass/Vol] 9.7 mg/dL Normal 8.2-10.2 [facility] Comment on above: Result Comment: PERF ORMED BY: [place] [address] PATHOLOGIST MOLD LOFT WORKER DOMI FLOREZ M.D. Performed By: #### B MP, PTT, PT, CBC #### [address] Chloride [Moles/Vol] 99 mmol/L Normal 95-114 [facility] Comment on above: Performed By: #### B MP, PTT, PT, CBC #### [address] CO2 [Moles/Vol] 26.2 mmol/L Normal 22.0-30.0 [facility] Comment on above: Performed By: #### B MP, PTT, PT, CBC #### [address] Creatinine [Mass/Vol] 1.21 mg/dL Normal 0.64-1.27 [facility] Comment on above: Performed By: #### B MP, PTT, PT, CBC #### [place] [address] [place] Estimated GFR ( Keturha > 60 [facility] Comment on above: Result Comment: GFR estimated reference range: According to KDOQI guidelines, <60 ml/min/1.73m2 is sufficient to diagnose a patient with chronic kidney disease. Performed By: #### B MP, PTT, PT, CBC #### [place] [address] [place] Estimated GFR (Non- Am 59 [facility] Comment on above: Performed By: #### B MP, PTT, PT, CBC #### [facility] [address] Glucose [Mass/Vol] 99 mg/dL Normal 70-100 [facility] Comment on above: Result Comment: Victor Glucose Reference Range is dependent on time and content of last meal. Glucose of more than 200 mg/dL in a nonstressed, ambulatory subject supports the diagnosis of Diabetes Mellitus. ADA recommended reference range Performed By: #### B MP, PTT, PT, CBC #### [facility] [address] Potassium [Moles/Vol] 4.4 mmol/L Normal 3.5-5.1 [facility] Comment on above: Performed By: #### B MP, PTT, PT, CBC #### [facility] [address] Sodium [Moles/Vol] 135 mmol/L Low 136-146 [facility] Comment on above: Performed By: #### B MP, PTT, PT, CBC #### [facility] [address] Urea nitrogen [Mass/Vol] 20 mg/dL Normal 9-23 [facility] Comment on above: Performed By: #### B MP, PTT, PT, CBC #### [facility] [address] Basophils Auto (Bld) [#/Vol] Ordered By: Lionel Carrington on 02-06-2022 Basophils (Bld) [#/Vol] 0.0 10*3/uL 0.0-0.2 [facility] Basophils/100 WBC Auto (Bld) Ordered By: Lionel Carrington on 02-06-2022 Basophils/100 WBC (Bld) 0.8 % . [facility] Blood hemoglobin measurement (mass/volume)Ordered By: Lionel Carrington on 02-06-2022 Hemoglobin (Bld) [Mass/Vol] 13.2 g/dL 13.0-17.0 [facility] Blood leukocytes automated c ount (number/volume)Ordered By: Lionel Carrington on 02-06-2022 WBC (Bld) [#/Vol] 5.7 10*3/uL 4.5-11.0 [facility] Complete Blood Count Auto Di ffon 02-06-2022 Basophils (Bld) [#/Vol] 0.0 10*3/uL Normal 0.0-0.2 [facility] Comment on above: Result Comment: PERF ORMED BY: [place] [address] PATHOLOGIST MOLD LOFT WORKER DOMI FLOREZ M.D. Performed By: #### B MP, PTT, PT, CBC #### [address] Basophils/100 WBC (Bld) 0.8 % Normal . [facility] Comment on above: Performed By: #### B MP, PTT, PT, CBC #### [address] Eosinophils (Bld) [#/Vol] 0.1 10*3/uL Normal 0.0-0.45 [facility] Comment on above: Performed By: #### B MP, PTT, PT, CBC #### [place] [address] [place] Eosinophils/100 WBC (Bld) 1.7 % Normal . [facility] Comment on above: Performed By: #### B MP, PTT, PT, CBC #### [facility] [address] [place] [address] Erythrocyte distribution width (RBC) [Ratio] 14.2 % Normal 12.0-14.8 [facility] Comment on above: Performed By: #### B MP, PTT, PT, CBC #### [facility] [address] [place] [address] [place] Hematocrit (Bld) [Volume fraction] 40.8 % Normal 38.8-50.0 [facility] Comment on above: Performed By: #### B MP, PTT, PT, CBC #### [facility] [address] [place] [address] Hemoglobin (Bld) [Mass/Vol] 13.2 g/dL Normal 13.0-17.0 [facility] Comment on above: Performed By: #### B MP, PTT, PT, CBC #### [address] Lymphocytes (Bld) [#/Vol] 1.6 10*3/uL Normal 1.00-4.8 [facility] Comment on above: Performed By: #### B MP, PTT, PT, CBC #### [address] Lymphocytes/100 WBC (Bld) 27.4 % Normal . [facility] Comment on above: Performed By: #### B MP, PTT, PT, CBC #### [address] MCH (RBC) [Entitic mass] 29.7 pg Normal 27.5-35.2 [facility] Comment on above: Performed By: #### B MP, PTT, PT, CBC #### [address] MCV (RBC) [Entitic vol] 91.6 fL Normal 83.5-101 [facility] Comment on above: Performed By: #### B MP, PTT, PT, CBC #### [address] Mean Corpuscular HGB Conc 32.4 g/dL Low 32.5-35.6 [facility] Comment on above: Performed By: #### B MP, PTT, PT, CBC #### [address] Monocytes (Bld) [#/Vol] 0.5 10*3/uL Normal 0.0-0.8 [facility] Comment on above: Performed By: #### B MP, PTT, PT, CBC #### [address] Monocytes/100 WBC (Bld) 8.7 % Normal . [facility] Comment on above: Performed By: #### B MP, PTT, PT, CBC #### [address] Neutrophils (Bld) [#/Vol] 3.5 10*3/uL Normal 1.8-7.7 [facility] Comment on above: Performed By: #### B MP, PTT, PT, CBC #### [facility] [address] Neutrophils/100 WBC (Bld) 61.4 % Normal . [facility] Comment on above: Performed By: #### B MP, PTT, PT, CBC #### [facility] [address] Nucleated RBC/100 WBC (Bld) [Ratio] 0.1 % Normal 0-0.5 [facility] Comment on above: Performed By: #### B MP, PTT, PT, CBC #### [address] Platelet mean volume (Bld) [Entitic vol] 8.4 fL Normal 6.6-10.1 [facility] Comment on above: Performed By: #### B MP, PTT, PT, CBC #### [address] Platelets (Bld) [#/Vol] 248 10*3/uL Normal 150-450 [facility] Comment on above: Performed By: #### B MP, PTT, PT, CBC #### [address] RBC (Bld) [#/Vol] 4.45 10*6/uL Normal 3.90-5.60 [facility] Comment on above: Performed By: #### B MP, PTT, PT, CBC #### [place] [address] [place] WBC (Bld) [#/Vol] 5.7 10*3/uL Normal 4.5-11.0 [facility] Comment on above: Performed By: #### B MP, PTT, PT, CBC #### [address] Creatinine and Glomerular fi ltration rate.predicted panel (S/P/Bld)Ordered By: Lionel Carrington on 02-06-2022 Creatinine [Mass/Vol] 1.21 mg/dL 0.64-1.27 [facility] Eosinophils Auto (Bld) [#/Vo l]Ordered By: Lionel Carrington on 02-06-2022 Eosinophils (Bld) [#/Vol] 0.1 10*3/uL 0.0-0.45 [facility] Eosinophils/100 WBC Auto (Bl d)Ordered By: Lionel Carrington on 02-06-2022 Eosinophils/100 WBC (Bld) 1.7 % . [facility] Erythrocyte distribution wid th Auto (RBC) [Ratio]Ordered By: Lionel Carrington on 02-06-2022 Erythrocyte distribution width (RBC) [Ratio] 14.2 % 12.0-14.8 [facility] Estimated glomerular filtrat ion rate (GFR) non- AmericanOrdered By: Lionel Carrington on 02-06-2022 GFR/1.73 sq M.predicted among non-blacks MDRD (S/P/Bld) [Vol rate/Area] 59 mL/Min [facility] Hematocrit Auto (Bld) [Volum e fraction]Ordered By: Lionel Carrington on 02-06-2022 Hematocrit (Bld) [Volume fraction] 40.8 % 38.8-50.0 [facility] Laboratory - CoagulationOrde red By: Lionel Carrington on 02-06-2022 PT Coag (PPP) [Time] 11.0 s 9.0-12.9 [facility] Laboratory - Hematology and Cell countsOrdered By: Lionel Carrington on 02-06-2022 Nucleated RBC/100 WBC (Bld) [Ratio] 0.1 % 0-0.5 [facility] Lymphocytes Auto (Bld) [#/Vo l]Ordered By: Lionel Carrington on 02-06-2022 Lymphocytes (Bld) [#/Vol] 1.6 10*3/uL 1.00-4.8 [facility] Lymphocytes/100 WBC Auto (Bl d)Ordered By: Lionel Carrington on 02-06-2022 Lymphocytes/100 WBC (Bld) 27.4 % . [facility] MCH Auto (RBC) [Entitic mass ]Ordered By: Lionel Carrington on 02-06-2022 MCH (RBC) [Entitic mass] 29.7 pg 27.5-35.2 [facility] MCHC Auto (RBC) [Mass/Vol]Or dered By: Lionel Carrington on 02-06-2022 MCHC (RBC) [Mass/Vol] 32.4 g/dL 32.5-35.6 [facility] MCV Auto (RBC) [Entitic vol] Ordered By: Lionel Carrington on 02-06-2022 MCV (RBC) [Entitic vol] 91.6 fL 83.5-101 [facility] Monocytes Auto (Bld) [#/Vol] Ordered By: Lionel Carrington on 02-06-2022 Monocytes (Bld) [#/Vol] 0.5 10*3/uL 0.0-0.8 [facility] Monocytes/100 WBC Auto (Bld) Ordered By: Lionel Carrington on 02-06-2022 Monocytes/100 WBC (Bld) 8.7 % . [facility] Neutrophils Auto (Bld) [#/Vo l]Ordered By: Lionel Carrington on 02-06-2022 Neutrophils (Bld) [#/Vol] 3.5 10*3/uL 1.8-7.7 [facility] Neutrophils/100 WBC Auto (Bl d)Ordered By: Lionel Carrington on 02-06-2022 Neutrophils/100 WBC (Bld) 61.4 % . [facility] No Panel InformationOrdered By: Lionel Carrington on 02-06-2022 Estimated GFR () > 60 mL/Min [facility] Comment on above: GFR estimated refere nce range: According to KDOQI guidelines, <60 ml/min/1.73m2 is sufficient to diagnose a patient with chronic kidney disease. Pharmacy Creatinine Clearance (Chem N/A [facility] Partial Thromboplastin Timeo n 02-06-2022 aPTT Coag (Bld) [Time] 34.8 s Normal 25.1-36.5 [facility] Comment on above: Result Comment: PERF ORMED BY: [facility] [address] [place] [address] PATHOLOGIST MOLD LOFT WORKER DOMI FLOREZ M.D. Performed By: #### B MP, PTT, PT, CBC #### [facility] [address] Platelet mean volume Auto (B ld) [Entitic vol]Ordered By: Lionel Carrington on 02-06-2022 Platelet mean volume (Bld) [Entitic vol] 8.4 fL 6.6-10.1 [facility] Platelet poor plasma interna tional normalized ratio (INR) by coagulation assay (relatOrdered By: Lionel Carrington on 02-06-2022 INR Coag (PPP) [Relative time] 1.0 {INR} [facility] Comment on above: INR Therapeutic Rang e [...] 02-06-2022 Platelets (Bld) [#/Vol] 248 10*3/uL 150-450 [facility] Prothrombin Time INRon 02-06 INR Coag (PPP) [Relative time] 1.0 {INR} Normal [facility] Comment on above: Result Comment: INR Therapeutic [...] #### B MP, PTT, PT, CBC #### [facility] [address] PT Coag (PPP) [Time] 11.0 s Normal 9.0-12.9 [facility] Comment on above: Performed By: #### B MP, PTT, PT, CBC #### [facility] [address] RBC Auto (Bld) [#/Vol]Ordere d By: Lionel Carrington on 02-06-2022 RBC (Bld) [#/Vol] 4.45 10*6/uL 3.90-5.60 [facility] Serum or plasma calcium eliezer urement (mass/volume)Ordered By: Lionel Carrington on 02-06-2022 Calcium [Mass/Vol] 9.7 mg/dL 8.2-10.2 [facility] Serum or plasma chloride sammy surement (moles/volume)Ordered By: Lionel Carrington on 02-06-2022 Chloride [Moles/Vol] 99 mmol/L 95-114 [facility] Serum or plasma glucose eliezer urement (mass/volume)Ordered By: Lionel Carrington on 02-06-2022 Glucose [Mass/Vol] 99 mg/dL 70-100 [facility] Comment on above: ADA recommended refe rence range Random Glucose Reference Range is dependent on time and content of last meal. Glucose of more than 200 mg/dL in a nonstressed, ambulatory subject supports the diagnosis of Diabetes Mellitus. Serum or plasma potassium me asurement (moles/volume)Ordered By: Lionel Carrington on 02-06-2022 Potassium [Moles/Vol] 4.4 mmol/L 3.5-5.1 [facility] Serum or plasma sodium measu rement (moles/volume)Ordered By: Lionel Carrington on 02-06-2022 Sodium [Moles/Vol] 135 mmol/L 136-146 [facility] Serum or plasma total carbon dioxide measurement (moles/volume)Ordered By: Lionel Carrington on 02-06-2022 CO2 [Moles/Vol] 26.2 mmol/L 22.0-30.0 [facility] Serum or plasma urea nitroge n measurement (mass/volume)Ordered By: Lionel Carrington on 02-06-2022 Urea nitrogen [Mass/Vol] 20 mg/dL 9-23 [facility] COVID-19 Positive/NegativeOr dered By: Lionel Carrington on 10-27-2021 SARS-CoV-2 (COVID-19) N gene REX+probe Ql (Resp) Negative Negative [facility] Comment on above: Testing for SARS-CoV -2 by RT-PCR This test was developed and its performance characteristics determined by [employer] ([employer]) and validated at the [facility]. This test has not been FDA cleared [...] aPTT Coag (PPP) [Time] 36.2 s 25.1-36.5 [facility] Basophils Auto (Bld) [#/Vol] Ordered By: Lionel Carrington on 10-17-2021 Basophils (Bld) [#/Vol] 0.0 10*3/uL 0.0-0.2 [facility] Basophils/100 WBC Auto (Bld) Ordered By: Lionel Carrington on 10-17-2021 Basophils/100 WBC (Bld) 0.6 % [facility] Blood hemoglobin measurement (mass/volume)Ordered By: Lionel Carrington on 10-17-2021 Hemoglobin (Bld) [Mass/Vol] 13.6 g/dL 13.0-17.0 [facility] Blood leukocytes automated c ount (number/volume)Ordered By: Lionel Carrington 10-17-2021 WBC (Bld) [#/Vol] 5.9 10*3/uL 4.5-11.0 [facility] Creatinine and Glomerular fi ltration rate.predicted panel (S/P/Bld)Ordered By: Lionel Carrington on 10-17-2021 Creatinine [Mass/Vol] 0.96 mg/dL 0.64-1.27 [facility] Eosinophils Auto (Bld) [#/Vo l]Ordered By: Lionel Carrington on 10-17-2021 Eosinophils (Bld) [#/Vol] 0.1 10*3/uL 0.0-0.45 [facility] Eosinophils/100 WBC Auto (Bl d)Ordered By: Lionel Carrington on 10-17-2021 Eosinophils/100 WBC (Bld) 2.0 % [facility] Erythrocyte distribution wid th Auto (RBC) [Ratio]Ordered By: Lionel Carrington on 10-17-2021 Erythrocyte distribution width (RBC) [Ratio] 14.5 % 12.0-14.8 [facility] Estimated glomerular filtrat ion rate (GFR) non- AmericanOrdered By: Lionel Carrington on 10-17-2021 GFR/1.73 sq M.predicted among non-blacks MDRD (S/P/Bld) [Vol rate/Area] > 60 mL/Min [facility] Hematocrit Auto (Bld) [Volum e fraction]Ordered By: Lionel Carrington on 10-17-2021 Hematocrit (Bld) [Volume fraction] 41.5 % 38.8-50.0 [facility] Laboratory - CoagulationOrde red By: Lionel Carrington on 10-17-2021 PT Coag (PPP) [Time] 11.0 s 9.0-12.9 [facility] Laboratory - Hematology and Cell countsOrdered By: Lionel Carrington on 10-17-2021 Nucleated RBC/100 WBC (Bld) [Ratio] 0.0 % 0-0.5 [facility] Lymphocytes Auto (Bld) [#/Vo l]Ordered By: Lionel Carrington on 10-17-2021 Lymphocytes (Bld) [#/Vol] 1.6 10*3/uL 1.00-4.8 [facility] Lymphocytes/100 WBC Auto (Bl d)Ordered By: Lionel Carrington on 10-17-2021 Lymphocytes/100 WBC (Bld) 26.8 % [facility] MCH Auto (RBC) [Entitic mass ]Ordered By: Lionel Carrington on 10-17-2021 MCH (RBC) [Entitic mass] 29.3 pg 27.5-35.2 [facility] MCHC Auto (RBC) [Mass/Vol]Or dered By: Lionel Carrington on 10-17-2021 MCHC (RBC) [Mass/Vol] 32.7 g/dL 32.5-35.6 [facility] MCV Auto (RBC) [Entitic vol] Ordered By: Lionel Carrington on 10-17-2021 MCV (RBC) [Entitic vol] 89.8 fL 83.5-101 [facility] Monocytes Auto (Bld) [#/Vol] Ordered By: Lionel Carrington on 10-17-2021 Monocytes (Bld) [#/Vol] 0.6 10*3/uL 0.0-0.8 [facility] Monocytes/100 WBC Auto (Bld) Ordered By: Lionel Carrington on 10-17-2021 Monocytes/100 WBC (Bld) 10.6 % [facility] Neutrophils Auto (Bld) [#/Vo l]Ordered By: Lionel Carrington on 10-17-2021 Neutrophils (Bld) [#/Vol] 3.5 10*3/uL 1.8-7.7 [facility] Neutrophils/100 WBC Auto (Bl d)Ordered By: Lionel Carrington on 10-17-2021 Neutrophils/100 WBC (Bld) 60.0 % [facility] No Panel InformationOrdered By: Lionel Carrington on 10-17-2021 Estimated GFR () > 60 mL/Min [facility] Comment on above: GFR estimated refere nce range: According to KDOQI guidelines, <60 ml/min/1.73m2 is sufficient to diagnose a patient with chronic kidney disease. Pharmacy Creatinine Clearance (Chem N/A [facility] Platelet mean volume Auto (B ld) [Entitic vol]Ordered By: Lioenl Carrington on 10-17-2021 Platelet mean volume (Bld) [Entitic vol] 8.3 fL 6.6-10.1 [facility] Platelet poor plasma interna tional normalized ratio (INR) by coagulation assay (relatOrdered By: Lionel Carrington on 10-17-2021 INR Coag (PPP) [Relative time] 1.0 {INR} [facility] Comment on above: INR Therapeutic Rang e [...] 10-17-2021 Platelets (Bld) [#/Vol] 249 10*3/uL 150-450 [facility] RBC Auto (Bld) [#/Vol]Ordere d By: Lionel Carrington on 10-17-2021 RBC (Bld) [#/Vol] 4.62 10*6/uL 3.90-5.60 [facility] Serum or plasma calcium eliezer urement (mass/volume)Ordered By: Lionel Carrington on 10-17-2021 Calcium [Mass/Vol] 9.7 mg/dL 8.2-10.2 [facility] Serum or plasma chloride sammy surement (moles/volume)Ordered By: Lionel Carrington on 10-17-2021 Chloride [Moles/Vol] 101 mmol/L 95-114 [facility] Serum or plasma glucose eliezer urement (mass/volume)Ordered By: Lionel Carrington on 10-17-2021 Glucose [Mass/Vol] 87 mg/dL 70-100 [facility] Comment on above: ADA recommended refe rence range Random Glucose Reference Range is dependent on time and content of last meal. Glucose of more than 200 mg/dL in a nonstressed, ambulatory subject supports the diagnosis of Diabetes Mellitus. Serum or plasma potassium me asurement (moles/volume)Ordered By: Lionel Carrington on 10-17-2021 Potassium [Moles/Vol] 4.4 mmol/L 3.5-5.1 [facility] Serum or plasma sodium measu rement (moles/volume)Ordered By: Lionel Carrington on 10-17-2021 Sodium [Moles/Vol] 136 mmol/L 136-146 [facility] Serum or plasma total carbon dioxide measurement (moles/volume)Ordered By: Lionel Carrington on 10-17-2021 CO2 [Moles/Vol] 25.6 mmol/L 22.0-30.0 [facility] Serum or plasma urea nitroge n measurement (mass/volume)Ordered By: Lionel Carrington on 10-17-2021 Urea nitrogen [Mass/Vol] 18 mg/dL 03-13 [facility] Vital Signs Date Time Vital Sign Value Performing Clinician Facility 02-10-2023 14:16-0400 Blood Pressure Location [facility] [place] 02-10-2023 14:16-0400 Diastolic blood pressure 80 mm[Hg] [facility] [place] 02-10-2023 14:16-0400 Heart rate 70 /min [facility] [place] 02-10-2023 14:16-0400 Respiratory rate 16 /min [facility] [place] 02-10-2023 14:16-0400 Systolic blood pressure 124 mm[Hg] [facility] 12-03-2022 10:20-0400 Body height 182.88 cm Zoran Chavez Other [employer] Other 12-03-2022 10:20-0400 Body mass index (BMI) [Ratio] 25.49 kg/m2 Zoran Chavez Other [employer] Other 12-03-2022 10:20-0400 Body weight 85.28 kg Zoran Chavez Other [employer] Other 10-22-2022 10:20-0400 Body height 182.88 cm Zoran Chavez Other [employer] Other 10-22-2022 10:20-0400 Body mass index (BMI) [Ratio] 25.63 kg/m2 Zoran Chavez Other [employer] Other 10-22-2022 10:20-0400 Body weight 85.73 kg Zoran Chavez Other [facility] [employer] Other 10-22-2022 10:20-0400 Diastolic blood pressure 80 mm[Hg] Zoran Chavez Other [facility] Other 10-22-2022 10:20-0400 Systolic blood pressure 110 mm[Hg] Zoran Chavez Other [facility] Other 02-24-2022 10:43-0400 Blood Pressure Location Lionel CARRINGTON [facility] 02-24-2022 10:43-0400 Diastolic blood pressure 80 mm[Hg] Lioneljameel CARRINGTON [facility] 02-24-2022 10:43-0400 Heart rate 65 /min Lionel CARRINGTON [facility] [facility] 02-24-2022 10:43-0400 Respiratory rate 16 /min Lionel CARRINGTON [facility] 02-24-2022 10:43-0400 Systolic blood pressure 140 mm[Hg] Lionel CARRINGTON [facility] 02-17-2022 15:15-0400 Diastolic blood pressure 83 mm[Hg] MD Yolande Staley Work Phone: [facility] 02-17-2022 15:15-0400 Heart rate 58 /min MD Yolande Staley Work Phone: [facility] 02-17-2022 15:15-0400 Respiratory rate 16 /min MD Yolande Staley Work Phone: [facility] 02-17-2022 15:15-0400 SaO2% (BldA) [Mass fraction] 95 % MD Yolande Staley Work Phone: [facility] 02-17-2022 15:15-0400 Systolic blood pressure 166 mm[Hg] MD Yolande Staley Work Phone: [facility] 02-17-2022 14:30-0400 Body height 182.88 cm MD Yolande Staley Work Phone: [facility] 02-17-2022 14:30-0400 Body mass index (BMI) [Ratio] 26.2 kg/m2 MD Yolande Staley Work Phone: [facility] 02-17-2022 14:30-0400 Body weight 87.7 kg MD Yolande Staley Work Phone: [facility] 02-17-2022 14:17-0400 Body temperature 97.6 [degF] MD Yolande Staley Work Phone: [facility] 02-17-2022 13:52-0400 Inhaled oxygen flow rate 10 L/min MD Yolande Staley Work Phone: [facility] 10-17-2021 11:42-0400 Body height 180.34 cm MD Yolande Staley Work Phone: [facility] 10-17-2021 11:42-0400 Body mass index (BMI) [Ratio] 27 kg/m2 MD Yolande Staley Work Phone: [facility] 10-17-2021 11:42-0400 Body temperature 98.4 [degF] MD Yolande Staley Work Phone: [facility] 10-17-2021 11:42-0400 Body weight 88 kg MD Yolande Staley Work Phone: [facility] 10-17-2021 11:42-0400 Diastolic blood pressure 90 mm[Hg] MD Yolande Staley Work Phone: [facility] 10-17-2021 11:42-0400 Heart rate 64 /min MD Yolande Staley Work Phone: [facility] 10-17-2021 11:42-0400 SaO2% (BldA) [Mass fraction] 100 % MD Yolande Staley Work Phone: [facility] 10-17-2021 11:42-0403 Systolic blood pressure 172 mm[Hg] MD Yolande Staley Work Phone: [facility] Encounters Encounter Date Encounter Type Care Provider Facility Start: 04-27-2023 End: 04-28-2023 ambulatory Lionel CARRINGTON Facility:[facility] Start: 04-27-2023 End: 04-27-2023 Patient encounter procedure Lionel CARRINGTON [facility] Start: 03-10-2023 End: 03-11-2023 ambulatory Qamar R NILL Facility:CD:[id number] Start: 02-10-2023 End: 02-11-2023 ambulatory Qamar R NILL [facility] Start: 02-10-2023 End: 02-10-2023 Patient encounter procedure Qamar R NILL [facility] [place] Start: 01-20-2023 End: 01-21-2023 ambulatory Lionel CARRINGTON Facility:[facility] Start: 01-14-2023 End: 01-15-2023 ambulatory Lionel CARRINGTON Facility:CD:[id number] Start: 01-05-2023 End: 01-06-2023 ambulatory Lionel CARRINGTON Facility:[facility] Start: 01-05-2023 End: 01-05-2023 Patient encounter procedure Lionel CARRINGTON [facility] Start: 01-01-2023 End: 01-01-2023 ambulatory Yolande Staley Facility:[facility] Start: 01-01-2023 End: 01-01-2023 ambulatory MD Yolande Staley Work Phone: [facility] Work Phone: Start: 01-01-2023 End: 01-01-2023 Patient encounter procedure MD Yolande Staley Work Phone: [facility] [place] Work Phone: Start: 12-28-2022 End: 12-29-2022 ambulatory Tamiko Osman MD Facility:[facility] Start: 12-14-2022 End: 12-15-2022 ambulatory Tamiko Osman MD Facility:[facility] [place] Start: 12-03-2022 End: 12-03-2022 ambulatory Zoran Chavez Other [employer] Other Start: 12-03-2022 Office outpatient visit 15 minutes Zoarn Chavez [facility] Start: 11-20-2022 End: 11-21-2022 ambulatory ROMELRIUS OSMAN Facility:[facility] Start: 10-28-2022 End: 10-29-[address] NELLY HERRERA Facility:[facility] Start: 10-27-2022 End: 11-18-[address] ZORAN CHAVEZ Facility:[facility] Start: 10-23-2022 End: 10-24-[address] ZORAN CHAVEZ Facility:[facility] Start: 10-22-2022 End: 10-22-2022 ambulatory Zoran Chavez Other [employer] Other Start: 10-22-2022 Office outpatient visit 15 minutes Zoran Chavez [facility] Start: 10-05-2022 End: 10-06-[address] YOLANDE STALEY . Facility:[facility] Start: 09-29-2022 End: 09-30-2022 ambulatory Lionel CARRINGTON Facility:[facility] Start: 09-24-2022 End: 09-25-[address] YOLANDE STALEY . Facility:[facility] Start: 09-21-2022 End: 09-22-[address] LIONEL CARRINGTON . Facility:[facility] Start: 09-21-2022 End: 09-22-2022 ambulatory Lionel CARRINGTON Facility: [place] Start: 09-21-2022 End: 09-21-2022 Patient encounter procedure Lionel CARRINGTON [facility] Start: 08-19-2022 End: 08-20-[address] LIONEL CARRINGTON . Facility: Start: 08-17-2022 End: 08-18-2022 ambulatory Lionel CARRINGTON Facility:[facility] Start: 08-17-2022 End: 08-17-2022 Patient encounter procedure [facility] Start: 08-04-2022 End: 08-05-[address] YOLANDE STALEY . Facility:[facility] Start: 07-28-2022 End: 07-29-[address] YOLANDE STALEY . Facility:[facility] Start: 07-23-2022 End: 07-23-[address] LIONEL CARRINGTON . Facility:[facility] Start: 07-20-2022 End: 07-21-2022 ambulatory Lionel CARRINGTON Facility:[facility] Start: 07-20-2022 End: 07-20-2022 Patient encounter procedure Lionel CARRINGTON [facility] Start: 07-07-2022 End: 07-08-2022 ambulatory Lionel CARRINGTON Facility:[facility] Start: 07-07-2022 End: 07-07-2022 Patient encounter procedure Lionel CARRINGTON [facility] Start: 06-30-2022 End: 07-01-[address] YOLANDE STALEY . Facility:[facility] Start: 06-04-2022 End: 06-04-[address] YOLANDE STALEY . Facility:[facility] Start: 05-25-2022 End: 05-26-[address] YOLANDE STALEY . Facility:[facility] Start: 05-18-2022 End: 05-18-2022 Patient encounter procedure Lionel CARRINGTON [facility] Start: 04-27-2022 End: 04-28-[address] YOLANDE STALEY . Facility:[facility] Start: 04-18-2022 End: 04-18-[address] FELICIA GALDAMEZ . Facility:[facility] Start: 04-15-2022 End: 04-15-2022 Patient encounter procedure Lionel CARRINGTON [facility] Start: 03-26-2022 End: 03-26-[address] LIONEL CARRINGTON . Facility:[facility] Start: 03-12-2022 End: 03-13-[address] YOLANDE STALEY . Facility:[facility] Start: 03-09-2022 End: 03-09-2022 Patient encounter procedure Lionel CARRINGTON [facility] Start: 02-27-2022 End: 02-27-2022 Lab Drop off Lionel CARRINGTON [facility] Start: 02-27-2022 End: 02-27-2022 Patient encounter procedure Lionel CARRINGTON [facility] Start: 02-24-2022 End: 02-24-2022 Patient encounter procedure Lionel CARRINGTON [facility] Start: 02-17-2022 End: 02-17-2022 ambulatory Lionel Carrington Facility:[facility] Start: 02-17-2022 End: 02-17-2022 Admission to same day surgery center MD Yolande Staley Work Phone: [facility] [place] Start: 02-13-2022 End: 02-13-2022 ambulatory Lionel Carrington Facility:[facility] Start: 02-13-2022 End: 02-13-2022 Patient encounter procedure MD Yolande Staley Work Phone: [facility]-Pre-Surgical Testing Start: 02-06-2022 End: 02-06-2022 ambulatory Lionel Carrington Facility:[facility] Start: 02-06-2022 End: 02-06-2022 Patient encounter procedure MD Yolande Staley Work Phone: [facility]-Pre-Surgical Testing Start: 11-11-2021 End: 11-11-2021 Patient encounter procedure Lionel Burgos CARRINGTON [facility] Start: 11-05-2021 End: 11-05-2021 Patient encounter procedure Lionel Burgos CARRINGTON [facility] Start: 10-29-2021 End: 10-29-2021 Admission to same day surgery center MD Yolande Staley Work Phone: [facility]-Surgery Center [place] Start: 10-27-2021 End: 10-27-2021 Patient encounter procedure MD Yolande Staley Work Phone: [facility]-Pre-Surgical Testing Start: 10-17-2021 End: 10-17-2021 Patient encounter procedure MD Yolande Staley Work Phone: [facility]-Pre-Surgical Testing Procedures Date Procedure Procedure Detail Performing Clinician Start: 01-01-2023 MR lumbar spine wo con MD Yolande Staley Work Phone: Start: 09-21-[address] NELLY HERRERA Comment on above: Performed By: #### P SAD #### [facility] [address] [place] [address] Dr. Johnna Dixon Start: 02-17-2022 Transurethral resect [...] CARRINGTON Comment on above: had recently at [facility] Start: 05-21-2014 Colonoscopy Qamar DOSS Start: 06-21-2010 Complete repair of r otator cuff Lionel CARRINGTON Comment on above: right Start: 06-21-1998 Shoulder reconstruction Lionel CARRINGTON Comment on above: left possibly a scre w in there per pt Start: 06-21-1964 Appendectomy Lionel KEELY STERLING Arthroplasty of the ankle Jose Alfredo henderson DEVONTE Comment on above: 1990 [facility] Lionel CARRINGTON Plan of Treatment Date Care Activity Detail Author Start: 10-04-2023 ambulatory Ambulatory Facility:[facility] Start: 02-17-2022 End: 02-17-2022 [facility] Work Phone: Start: 02-17-2022 Transurethral resect ion of bladder neoplasm OR Cysto/TURBT/Bladder Biopsy/Fulg (Not Applicable) [facility] Start: 02-17-2022 End: 02-17-2022 Admission to same day surgery center Departed Surgical Day Care [facility]-Surgery [facility] [place] Start: 02-13-2022 End: 02-13-2022 Patient encounter procedure Departed Clinical [facility]-Vrv-Efidhohe Testing Patient referral [facility] Work Phone: Immunizations Immunization Date Immunization Notes Care Provider [facility] 04-16-2022 SARS-CoV-2 (COVID-19 ) [id number] Qamar SMITH [facility] 03-27-2022 influenza virus vacc ine, unspecified formulation Qamar SMITH [facility] 05-06-2021 COVID-19 mRNA-1273 (Moderna) MD Yolande Staley Work Phone: [facility] 09-19-2020 COVID-19 mRNA-1273 (Moderna) MD Yolande Staley Work Phone: [facility] Comment on above: Result Comment: 2022: [id number] 08-22-2020 COVID-19 mRNA-1273 (Moderna) MD Yolande Staley Work Phone: [facility] Comment on above: Result Comment: 2022: [id number] 06-21-2020 SARS-CoV-2 (COVID-19 ) mRNA-1273 vaccine Lionel CARRINGTON [facility] 05-23-2020 influenza virus vacc ine, unspecified formulation [employer] [facility] 04-03-2020 influenza virus vacc ine, unspecified formulation [employer] [facility] 05-29-2019 influenza virus vacc ine, unspecified formulation [employer] [facility] 04-14-2019 influenza, unspecifi ed formulation [facility] [address] [facility] 09-26-2018 tetanus and diphther ia toxoids, adsorbed, preservative free, for adult use (2 Lf of tetanus toxoid and 2 Lf of diphtheria toxoid) [address] [facility] 10-11-2017 pneumococcal polysaccharide vaccine, 23 valent [employer] [facility] 07-22-2016 pneumococcal conjuga te vaccine, 13 valent [employer] [facility] 06-29-2013 tetanus toxoid, redu mirtha diphtheria toxoid, and acellular pertussis vaccine, adsorbed [employer] [facility] 03-10-2000 Td(adult) unspecifie d formulation [employer] [facility] Payers Date Payer Category Payer Unknown 2022 Self-pay [id number] 1958 Medicare [id number] 1958 Unknown [id number] 2.16.840.1.504398.19 1951 Unknown [id number] 2.16.840.1.489170.3.579.2. 593 1951 Unknown [id number] 2.16.840.1.012789.3.579.2. 593 1951 Unknown [id number] 2.16.840.1.486646.3.579.2. 593 1951 Unknown [id number] 2.16.840.1.229527.3.579.2. 593 1951 Unknown [id number] 2.16.840.1.777367.3.579.2. 593 1951 Unknown [id number] 2.16.840.1.537157.3.579.2. 593 1951 Unknown [id number] 2.16.840.1.135232.3.579.2. 593 1951 Unknown [id number] 2.16.840.1.473819.3.579.2. 593 1951 Unknown [id number] 2.16.840.1.063987.3.579.2. 593 1951 Unknown [id number] 2.16.840.1.425883.3.579.2. 593 1951 Unknown [id number] 2.16.840.1.292627.3.579.2. 593 1951 Unknown [id number] 2.16.840.1.553566.3.579.2. 593 1951 Unknown [id number] 2.16.840.1.803842.3.579.2. 593 1951 Unknown [id number] 2.16.840.1.810199.3.579.2. 593 1951 Unknown [id number] 2.16.840.1.230625.3.579.2. 593 1951 Unknown [id number] 2.16.840.1.992064.3.579.2. 593 1951 Unknown [id number] 2.16.840.1.894155.3.579.2. 593 1951 Unknown [id number] 2.16.840.1.884736.3.579.2. 593 1951 Unknown [id number] 2.16.840.1.291232.3.579.2. 593 1951 Unknown [id number] 2.16.840.1.586352.3.579.2. 196 1951 Unknown [id number] 2.16.840.1.574755.3.579.2. 196 1951 Unknown [id number] 2.16.840.1.708365.3.579.2. 196 1951 Unknown [id number] 2.16.840.1.775678.3.579.2. 727 1951 Unknown [id number] 2.16.840.1.577423.3.579.2. 727 1951 Unknown [id number] 2.16.840.1.474316.3.579.2. 727 1951 Unknown [id number] 2.16.840.1.854203.3.579.2. 727 1951 Unknown [id number] 2.16.840.1.220339.3.579.2. 727 1951 Unknown [id number] 2.16.840.1.384578.3.579.2. 727 1951 Unknown [id number] 2.16.840.1.888579.3.579.2. 727 1951 Unknown [id number] 2.16.840.1.706132.3.579.2. 727 1951 Unknown [id number] 2.16.840.1.453408.3.579.2. 727 1951 Unknown [id number] 2.16.840.1.104895.3.579.2. 727 1951 Unknown [id number] 2.16.840.1.773317.3.579.2. 727 1951 Unknown [id number] 2.16.840.1.713954.3.579.2. 727 1951 Unknown [id number] 2.16.840.1.282427.3.579.2. 727 1951 Unknown [id number] 2.840.1.082051.3.579.2. 727 Medicare Medicare [id number] Private Health Insurance [id number] Unknown [place] [id number] Unknown [id number] 2840.1.340138.3.579.2. 531 Unknown [id number] 08.06.830.1.582642.3.579.2. 531 Unknown [id number] 20.1.466007.3.579.2. 531 Unknown [id number] 20.1.247552.3.579.2. 531 Social History Date Type Detail Facility Start: 10-17-2021 End: 02-10-2023 Tobacco smoking status NHIS Ex-smoker (finding) [facility] Comment on above: pt quit smoking 10+ yrs ago Start: 1950 Sex Assigned At Male F [facility] Start: 11-05-2021 Tobacco smoking status Never s moked tobacco (finding) [facility] Tobacco smoking status Never [facility] Comment on above: pt quit smoking 10+ yrs ago Sex Assigned At Male [facility] Medical Equipment Procedure Code Equipment Code Equipment Original Text Equipment Identifier Dates Transurethral resection of bladder tumor (TURBT) with cystoscopy Polymeric ureteral stent ()[id number] FDA Start: 10-29-2021 Decompression, spine, cervical, posterior approach Bone-screw internal spinal fixation system, non-sterile ()[id number] FDA Start: 04-18-2020 Decompression, spine, cervical, posterior approach Bone-screw internal spinal fixation system, non-sterile ()[id number] FDA Start: 04-18-2020 Decompression, spine, cervical, posterior approach Bone-screw internal spinal fixation system, non-sterile ()[id number] FDA Start: 04-18-2020 Decompression, spine, cervical, posterior approach Bone-screw internal spinal fixation system, non-sterile ()[id number] FDA Start: 04-18-2020 Decompression, spine, cervical, posterior approach Bone-screw internal spinal fixation system, non-sterile ()[id number] FDA Start: 04-18-2020 Goals Date Patient Goal Desired Activity /State Functional Status Date Assessment Result Facility 04-27-2023 Functional Status N/A [facility] 02-10-2023 Functional Status N/A [facility] 01-05-2023 Functional Status N/A [facility] 02-24-2022 Functional Status N/A [facility] Clinical Notes 11-04-2021 to 04-27-2023 Note Date & Type Note Facility 04-27-2023 Note [id number] [facility] 04-27-2023 Hospital Discharge instructions Patient Education [...] CARRINGTON Address: [facility] [address] [place] [address]- Business (1) When: Unknown Comments:Office will call to schedule follow up [facility] 04-27-2023 Note Custom Cystoscopy ? Voiding after [...] you have a fever over 100 degrees. [facility] 02-10-2023 Note Chief Complaint consultation for [...] Cervical vertebral fu (more content not included)... [facility] Comment on above: Result Comment: Elec tronically Signed By: LUIS NOBLE, Qamar Ernandez\Date and Time Signed: 02/10/23 15:05 EDT 01-05-2023 Note [id number]:127 [facility] 01-05-2023 Hospital Discharge instructions Patient Education [...] [facility] [address], [place] [address] Business (1) When: Unknown Comments:Office will call to schedule follow up [facility] 01-05-2023 Note Custom Cystoscopy ? Voiding after [...] you have a fever over 100 degrees. [facility] 12-03-2022 Evaluation note Encounter Date Diagnosis [...] M46.1) Nov, Neurogenic claudication (ICD-10 - R29.818) [employer] Other 05-04-2023 Evaluation note* Encounter Date Diagnosis [...] spine October, Neurogenic claudication (ICD-10 - R29.818) [employer] Other 04-11-2023 Note [id number]:127[facility] 09-29-2022 NoteCustom Cystoscopy ? Voiding after the [...] if you have a fever over 100 degrees.[facility] 09-21-2022 Hospital Discharge instructions Patient Education [...] if anything looks unusual. Men with a fredkv-xmiy-tlyeio risk for skin cancer may want to see a commissioning specialist (printed circuit board panels plater) for an annual body check. Where to find more information National Cancer [place]: https://www.cancer.gov/about-cancer/screening Centers for Disease Control and Prevention: https://www.cdc.gov/cancer/dcpc/prevention/screening.htm [employer]: https://www.cancer.org/latest-news/1-roqaxr-vdwerplhg-avyul-crd-xlt.html Contact a health care provider if: You [...] 03/04/2017 Document Revised: 02/24/2019 Document Reviewed: 03/04/2017 [employer] Patient Education 2020 [employer]. Follow Up Care 09/19/2021 11:05:08 With:DEVONTE NOBLE, Lionel Burgos, URL Address: [facility] [address] , [place] [address]- When: Unknown [facility] 01-18-2023 Note [id number]:127[facility] 07-07-2022 Hospital Discharge instructions Patient Education 07/07/2022 [...] Address: [facility] [address] [place] [address]- Business (1) When: Unknown Comments:Office will call to schedule follow up [facility]01-17-2023 NoteCustom Cystoscopy ? Voiding after the procedure: [...] if you have a fever over 100 degrees.[facility] 02-24-2022 Hospital Discharge instructions Patient Education [...] if anything looks unusual. Men with a mltdbb-pwdi-hrunon risk for skin cancer may want to see a commissioning specialist (printed circuit board panels plater) for an annual body check. Where to find more information National Cancer [place]: https://www.cancer.gov/about-cancer/screening Centers for Disease Control and Prevention: https://www.cdc.gov/cancer/dcpc/prevention/screening.htm [employer]: https://www.cancer.org/latest-news/2-pttqeg-ktfajmpsx-gvish-wef-bwe.html Contact a health care provider if: You [...] 03/04/2017 Document Revised: 02/24/2019 Document Reviewed: 03/04/2017 [employer] Patient Education 2020 [employer] Follow Up Care 02/05/2022 13:48:40 With:DEVONTE NOBLE, Lionel Burgos, [place] Address: [facility] [address] , [place] [address]- [phone] When: Unknown [facility] 05-24-2022 Hospital Discharge instructions Patient Education [...] Address: [facility] [address] [place] [address] [facility] (1) When: Unknown Comments:Keep scheduled appointment [facility]05-17-2022 Hospital Discharge instructions Patient Education 11/04/2021 14:11:16 [...] who: Are older than age 65. Are -[place]. Are obese. Have a family history of [...] cells. Follow these instructions at home: Take pjsz-ayt-xonijkd and prescription medicines only as told by [...] 06/07/2006 Document Revised: 05/20/2018 Document Reviewed: 02/15/2017 [employer] Patient Education 2020 [employer]apine. Follow Up Care 10/14/2021 11:26:04 With:Lionel CARRINGTON MD, URL Address: [facility] [address] , [place] [address]- When: Unknown [facility] evaluation + Plan note Future Appointments Appointment Date:09/21/2022 09:45:00 AM Scheduled Provider:[facility] Office Visit [facility] evaluation + Plan note Future Appointments Appointment Date:03/09/2022 09:00:00 AM Scheduled [facility] Nurse Visit Appointment Date:04/15/2022 09:00:00 AM Scheduled Provider: Location:[facility] [place] Appointment Type:URO Nurse Visit Appointment Date:09/21/2022 09:45:00 AM Scheduled Provider:Lionel CARRINGTON MD Location:[facility] [place] Appointment Type:URO Office Visit [facility] Evaluation + Plan note Future Appointments Appointment Date:03/09/2022 09:00:00 AM Scheduled Provider: Location:[facility] [place] Appointment Type:URO Nurse Visit Appointment Date:04/15/2022 09:00:00 AM Scheduled Provider: Location:[facility] [place] Appointment Type:URO Nurse Visit Appointment Date:09/21/2022 09:45:00 AM Scheduled Provider:Lionel CARRINGTON MD Location:[facility] [place] Appointment Type:URO Office Visit Diagnostic Tests Pending * [facility]rine [facility] Future Appointments Appointment Date:04/15/2022 09:00:00 AM Scheduled Provider: Location:[facility] [place] Appointment Type:URO Nurse Visit Appointment Date:09/21/2022 09:45:00 AM Scheduled Provider:Lionel CARRINGTON MD Location:[facility] [place] Appointment Type:URO Office Visit [facility] evaluation + Plan note Future Appointments Appointment Date:07/20/2022 10:00:00 AM Scheduled Provider: Location:[facility] [place] Appointment Type:URO Nurse Visit Appointment Date:08/17/2022 10:00:00 AM Scheduled Provider: Location:[facility] [place] Appointment Type:URO Nurse Visit Appointment Date:09/21/2022 09:45:00 AM Scheduled Provider:Lionel CARRINGTON MD Location:[facility] [place] Appointment Type:URO Office Visit Diagnostic Tests Pending * UroVysion FISH ([facility]) [facility] Future App[facility]ments Appointment Date:08/17/2022 10:00:00 AM Scheduled Provider: Location:[facility] [place] Appointment Type:URO Nurse Visit Appointment Date:09/21/2022 09:45:00 AM Scheduled Provider:Lionel CARRINGTON MD Location:[facility] Appointment Type:URO Office Visit [facility] Evaluation + Plan note Future Appointments Appointment Date:09/22/2022 02:00:00 PM Scheduled Provider: Location:[facility] Appointment Type:Urology CALL PAT FT Appointment Date:09/29/2022 11:15:00 AM Scheduled Provider: Location:[facility] Appointment Type:Urology FT [facility] evaluation + Plan note Future Appointments Appointment Date:09/22/2022 02:00:00 PM Scheduled Provider: Location:[facility] Appointment Type:Urology CALL PAT FT Appointment Date:09/29/2022 11:15:00 AM Scheduled Provider: Location:[facility] Appointment Type:Urology FT Diagnostic Tests Pending * Urine Cytology ([facility]) 09/21/22 [facility] evaluation + Plan note Future Appointments Appointment Date:10/04/2023 10:15:00 AM Scheduled Provider:Lionel CARRINGTON MD Location:[facility] Appointment Type:URO Office Visit Diagnostic Tests Pending * Uro[facility]ysion Fish and Urine Cyto ([facility]) [facility] Future App[facility]ments Appointment Date:10/04/2023 10:15:00 AM Scheduled Provider:Lionel CARRINGTON MD Location:[facility] Appointment Type:URO Office Visit General Surgery [place] Evaluation + Plan note Future Appointments Appointment Date:10/04/2023 10:15:00 AM Scheduled Provider:Lionel CARRINGTON MD Location:[facility] Appointment Type:URO Office Visit Diagnostic Tests Pending * UroVysion Fish and Urine Cyto ([facility]) [facility] assessment information available [facility] Work Phone: History general Narrative - Reported* [...] KNEE SCOPE Surgical History L shoulder NAE -[facility] 2016 Hospitalization History FLU X2-3 DAYS Hospitalization History see surg. hx. [facility] Other Hospital course Narrative No data available for this section [facility] Hospital Discharge instructions No data available for this section [facility] progress note No data available for this section [facility] Chief Complaint and Reason for Visit [...] Diagnosis 1 Cervical spondylosis (M47.812) Referral Organization [facility] urosurgery Referring Provider First Name Zoran Referring Provider Last Name Scott Referring Provider Specialty Neurologica l Surgery Referred Organization [facility] Sched[facility] Referred Address [address], [place],[address] Referred Provider Specialty Physical The rapist Referral Priority Routine Reason evaluate and tr eat for neck and back pain Diagnosis 1 Cervical spondylosis (M47.812) Diagnosis 2 Low back pain, unspe cified (M54.50) Referral Organization [facility] urosurgery Referring Provider First Name Zoran Referring Provider Last Name Scott Referring Provider Specialty Neurologica l Surgery Referred Organization [facility] Referred Provider Raoul Soriano Referred Address [address], [place],[address] Referred Provider Specialty Pain Medicin e Referral [...] and content) DATE CREATED AUTHOR 11/27/2022 [facility] DATE CREATED AUTHOR AUTHOR'S ORGANIZ ATION 01/02/2023 [facility] DATE CREATED AUTHOR AUTHOR'S ORGANIZ ATION 02/09/2023 [facility] DATE CREATED AUTHOR AUTHOR'S ORGANIZ ATION 06/28/2023 [facility] FOR RECORDS PERTAINING TO PATIENTS WHO [...] BE BASED ON THE PRIMARY CLINICAL RECORDS. [employer] provides no warranty or guarantee of the accuracy or completeness of information in this document.
--- OUTSIDE RECORDS SUMMARY | 2023-07-30 12:25 | XMS_ITS | CCD ---
Author Name Unknown Address [address] [place] [address] Organization [facility] Care Team Providers Care Firewood Cutter Name Role Phone MD Yolande Staley Primary Care Provider [phone] MD Lionel Carrington Attending Provider Yolande Staley Primary Care Physician [phone] Leidy Plummer Unavailable Unavailable MD Yolande Staley Primary Care Provider [phone] MD Lionel Carrington Attending Provider [phone] Zoran Chavez Unavailable SHARON, DR VILLEGAS Admitting [...] DR DUARTE Attending Unavailable HAY ., DR DAURTE Consulting Unavailable HOY ., DR LANIER Primary [...] Unavailable MD Yolande Staley Primary Care Provider [phone] MD Zoran Chavez Attending Provider CARRINGTON, Lionel R Attending Unavailable CARRINGTON, Lionel R Admitting Unavailable CARRINGTON, Lionel R Referring Unavailable CARRINGTON, Lionel R Attending Unavailable NILL, Qamar Bugros Attending Unavailable NILL, Qamar Burgos Attending Unavailable [...] Admitting Unavailable CARRINGTON, Lionel R Referring Unavailable Giedraitis , Duncanrius Kilgore Attending Unavailable Giedraitis , Andrius Magui Attending Unavailable Giedraitis , Andrius Magui Attending Unavailable Giedraitis , Andrius Vyteli Attending Unavailable Giedraitis , Andrius Vyteli Attending Unavailable Allergies Allergy Classification Reported Allergen(s) Allergy Type Date of Onset Reaction(s) Facility (7 sources) Acetaminophen; 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: [acetaminophen] Drug Allergy 04-11-20 20 Itching, Itching agitated [facility] (20 sources) Codeine; 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: [Codeine] Drug Allergy 06-04-20 14 rash [facility] (7 sources) oxyCODONE; 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: [oxycodone] Drug Allergy 04-11-20 20 Itching, agitated [facility] (16 sources) Acetaminophen / oxyCODONE; 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: [acetaminophen-oxyc odone] Drug Allergy aggitation [facility] Comment on above: pt states this does not work for pt, pt is not allergic to vicodin (2 sources) cyclobenzaprine Drug Allergy itching [facility] [employer] Other (2 sources) HYDROcodone Drug Allergy anxiety [facility] [employer] Other (2 sources) tiZANidine Drug Allergy hives [facility] [employer] Other (3 sources) Acetaminophen / HYDROcodone; 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: [Vicodin] Drug Allergy [facility] Repository (2 sources) Acetaminophen / oxyCODONE Drug Allergy [facility] Repository (1 source) atorvastatin Drug Allergy [facility] Repository (2 sources) tiZANidine Drug Allergy [facility] Repository (1 source) Acetaminophen / oxyCODONE; 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: [Percocet 5/325] Drug Allergy [facility] Repository Medications Current Medications Medication [...] 12:00am Start: 09-19-2021 take 2 tablets by mo [facility] twice daily carvedilol 6.25 mg Tab 12.5 mg = 2 tab(s), Oral, BID, Refills(s) 0 Start Date: 09/19/21 Status: Ordered Start: 09-19-2021 carvedilol 6.2 5 mg Tab Refills(s) 0 Start Date: 09/19/21 Status: Ordered take 1 tablet by [facility] every twelve hours Carvedilol 12.5 MG 1 [...] 07, 2019 1:00am April 19, 2020 8:04am Csecrhtvgcz-Fujokheqp-Bnwypr er (6 sources) Anticholinergic, Corticosteroid, beta2-Adrenergic Agonist Start: 08-07-2019 Hlfqsxpzlhh-Inelvsryf-Ryjden er (Trelegy Ellipta) 100-62.5-25 mcg Blister With [...] procedure, # 2 tab(s), Refills(s) 0, Pharmacy: [facility]/pharmacy #[id number], 170, cm, 01/20/23 10:45:00 EDT, Height/Length Dosing, 83.5, kg, 01/20/23 10:45:00 EDT, Weight Dosing Start Date: 01/20/23 Status: Ordered Start: 12-31-2022 take 1 tablet by barry once daily Cipro 500 mg Tab 500 mg = 1 tab(s), Oral, Daily, Take 1 tablet the day before the procedure and 1 tablet after the procedure, # 6 tab(s), Refills(s) 0, Pharmacy: [facility]/pharmacy #[id number], 170, cm, 09/22/22 12:23:00 EDT, Height/Length Dosing, 78, kg, 02/24/22 10:53:00 EDT, W... Start Date: 12/31/22 Status: Ordered Start: 07-02-2022 take 1 tablet by barry once daily Cipro 500 mg Tab 500 mg = 1 tab(s), Oral, Daily, Take 1 tablet the day before the procedure and 1 tablet after the procedure, # 6 tab(s), Refills(s) 0, Pharmacy: [facility]/pharmacy #[id number], 170, cm, 02/24/22 10:53:00 EDT, [...] procedure, # 2 tab(s), Refills(s) 0, Pharmacy: [facility]/pharmacy #[id number], 170, cm, 11/05/21 11:37:00 EDT, [...] procedure, # 2 cap(s), Refills(s) 0, Pharmacy: [facility]/pharmacy #[id number], 188, cm, 02/10/23 14:22:00 EDT, [...] Discontinued 5 MG PO EVERY 4-6 HOURS 70 14 April 19, 2020 October 17, 2021 [...] period., # 30 tab(s), Refills(s) 3, Pharmacy: [id number], 170, cm, 02/24/22 10:53:00 EDT, Height/Length Dosing, 78, kg, 02/24/22 10:53:00 EDT, Weight Dosing Start Date: 07/05/22 Status: Ordered Start: 09-19-2021 sildenafil 100 mg Tab 100 mg = 1 tab(s), Oral, Daily, Take 1 pill 30 minutes prior to sexual relations, # 30 tab(s), Refills(s) 3, Pharmacy: [id number], 170, cm, 09/19/21 10:16:00 EDT, [...] a surgery d one radical prostectomy at [facility] Cancer of prostate (20 sources) [...] region] Episodic Other aftercare (1 source) 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; 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: [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] Onset: 3 Episodic Other [...] From: Loretta Simons To: EU - Recalls Carrington; Cc: Loretta Simons; Sent: 06/28/2023 10:52:09 EST Show up: 09/20/2023 10:52:00 EDT Subject: Cysto/6 mo Due Date/Time: 10/11/2023 10:52:00 EDT Reminder/Recall Patient is due in October 2023 for 6 month cysto/fish/cytol, PSA (bt ck) Normal [facility] UroVysion Fish and Urine Cyt o ([facility])on 05-26-2023 UVF[facility] & UC Revision Information Invalid Interpretation Code [facility] Comment on above: Result Comment: Jimbo ection Reason -[ To Nur, 05/26/23 - 14:52 ] Corrected report issued to include PMS/PWS. The diagnosis remains unchanged. Correction Notes - Performed By: #### 1 [id number] #### [facility] Laboratory [address] [place] [address] Consent for Procedure/Surger yon 04-27-2023 Consent for Procedure/Surgery [id number]#1.0 0TIFF Normal [facility] Consent for Treatmenton Consent for Treatment [id number] 0TIFF Normal [facility] IntraOperative Documentson 1 06-27-2022 IntraOperative Documents [id number] 0TIFF Normal [facility] Main OR Intraoperative Recor don 04-27-2023 Main OR Intraoperative Record IntraOp Document Type FTURO Summary Primary Physician: Lionel CARRINGTON MD Finalized Date/Time: 04/27/23 11:02:57 Pt. Name: MARY DIAZ/Sex: 1950 Male Med Rec #: [id number] Physician: Lionel CARRINGTON MD Financial #: [id number] Pt. Type: O Room/Bed: / Admit/Disch: 04/27/23 [...] Nanci Luna Role Performed Surgeon - Primary Buffing Wheel Former Machine - Primary Scrub - Primary Time In 04/27/23 10:52:00 04/27/23 10:52:00 04/27/23 10:52:00 Time Out 04/27/23 11:05:00 04/27/23 11:05:00 04/27/23 11:05:00 Procedure CYSTOSCOPY LOCAL(.) CYSTOSCOPY LOCAL(.) CYSTOSCOPY LOCAL(.) Comments Last Modified By: Edgard ZELAYA, EDITHOR, Edgard ZELAYA, EDITHOR, Edgard ZELAYA, EDITHOR, Cheryl 04/27/23 Cheryl 04/27/23 Cheryl 04/27/23 11:00:58 11:00:58 11:00:58 Surgical Procedures FTURO Entry 1 Procedure Description Procedure CYSTOSCOPY LOCAL Modifiers . Surgeon Description CYSTO Primary Procedure Yes Primary Surgeon Lionel CARRINGTON MD Start 04/27/23 10:56:00 Stop 04/27/23 11:00:00 Anesthesia Type Local Surgical Service Urology Wound Class 2 - Clean-Contaminated Last Modified By: Edgard ZELAYA, EDITHORCheryl 04/27/23 11:01:00 General Case Data FTURO Pre-Care [...] By: PAULINA Rene RN, Ruthann 04/27/23 11:02 [facility] Main OR Preoperative Recordo n 04-27-2023 Main OR Preoperative Record Holding Area Document Type FTURO Summary Primary Physician: Lionel CARRINGTON MD Finalized Date/Time: 04/27/23 10:26:02 Pt. Name: MARY DIAZ/Sex: 1950 Male Med Rec #: [id number] Physician: Lionel CARRINGTON MD Financial #: [id number] Pt. Type: O Room/Bed: / Admit/Disch: 04/27/23 [...] Complaints of Pain: No Skin Integrity Intact, Munson, Warm, & Dry Vitals - EU Blood Pressure 167/96 Pulse 76 bpm Respirations 20 br/min SPO2 97 % Last Modified By: Avani Costello LPN 04/27/23 10:25:57 General Comments: Temp 36.7 Finalized By: Avani Costello LPN Document Signatures Signed By: Avani Costello LPN 04/27/23 10:26 Normal [facility] Operative Reporton Operative Report Patient: [...] a surveillance cystoscopy in 6 months.. Normal [facility] Comment on above: Result Comment: Elec tronically Signed By: DEVONTE NOBLE, Lionel Ernandez\Date and Time Signed: 04/27/23 11:04 EST Outpatient Surgery Discharge Instructionon 04-27-2023 Outpatient Surgery Discharge Instruction [id number] 0TIFF Normal [facility] Reminderson 04-27-2023 Reminders - From: Loretta Simons To: EU - Recalls Devonte; Cc: Loretta Simons; Sent: 03/05/2023 14:06:16 EDT Show up: 07/22/2023 14:06:00 EST Subject: Cysto/fish/cytol, Due Date/Time: 08/09/2023 14:06:00 EST Reminder/Recall Patient is due in August 2023 for 4 month cysto/fish/cytol (bt ck), ? PSA Pt will be due in October 2023 for 6 month cysto Normal [facility] UroVysion Fish and Urine Cyt o ([facility])on 04-27-2023 [facility] Method of Extraction Voided Normal [facility] Comment on above: Performed By: #### 1 [id number] #### [facility] Laboratory [address] [place] [address] [facility] Number of Jars 1 Invalid Interpretation Code [facility] Comment on above: Performed By: #### 1 [id number] #### [facility] [address] [place] [address] [facility] Specimen Urine Normal [facility] Comment on above: Performed By: #### 1 [id number] #### [facility] [address] [place] [address] [facility] Type of Service Technical Only [facility] Comment on above: Performed By: #### 1 [id number] #### [facility] [address] [place] [address] Outside Colonoscopyon 2022 Outside Colonoscopy [id number]#1.0 0CD:127 [facility] Reminderson 03-16-2023 Reminders - From: Stephanie Fletcher LPN To: GSN - Clinical; Sent: 03/16/2023 07:57:36 EDT Show up: 02/08/2028 07:00:00 EDT Subject: colonoscopy recall Due Date/Time: 03/10/2028 07:00:00 EDT Reminder/Recall Patient due for surveillance colonoscopy 03/10/2028 due to history of colonic polyps. [facility] Reminderson 03-05-2023 Reminders - From: Loretta Simons To: EU - Recalls Carrington; Cc: Loretta Simons; Sent: 07/02/2022 14:10:41 EST Show up: 08/19/2022 14:10:00 EST Subject: cysto/fish/cytol Due Date/Time: 09/07/2022 14:10:00 EDT Reminder/Recall Pt is due in September 2022 for 3 month cysto/fish./cytol (bt ck) Patient scheduled for 09/29/22. He will be due in December 2022.LG Patient scheduled for 01/05/23. Pt will be due in Mar 2023.LG Patient sched for 4 month cysto 04/27/23 at [facility]. He will be due in August 2023.LG new thread [facility] Consent for Procedure/Surger yon 02-11-2023 Consent for Procedure/Surgery [id number] CD:127 [facility] Ambulatory Visit Summaryon 0 02-10-2023 Ambulatory Visit [...] NOBLE, Lionel Burgos Where: [facility] Lab Reportson 02-03-2023 Lab Reports [id number] 0CD:127 [facility] Physician Referralon 08-16-2 023 Physician Referral [id number] 0CD:127 Normal [facility] UroVysion Fish and Urine Cyt o ([facility])on 02-03-2023 [facility] Revision Information Invalid Interpretation Code [facility] Comment on above: Result Comment: Jimbo ection Reason -[ To Nur, 02/03/23 - 12:32 ] Corrected report issued to update PMS/PWS. The diagnosis remains unchanged. Correction Notes - Performed By: #### 1 [id number] #### [facility] Laboratory [address] [place] [address] Lab Reportson 01-29-2023 Lab Reports [id number]#1.0 0CD:127 Normal [facility] Operative Reporton Operative Report [id number] 0CD:127 Normal [facility] Ambulatory Visit Summaryon 0 01-20-2023 Ambulatory Visit Summary MARY DIAZ Sue :1950 Visit Date:01/20/2023 Ambulatory Visit Instructions Your [...] Follow-Up Appointments Wednesday 2:20 PM EDT With: Qamar SMITH MD Where: General Surgery [facility] [place] [facility] [address] [place] [address] [place] [address]- \.br\ You Need to Schedule the Following Appointments\.b r\ Follow Up with DEVONTE NOBLE, Lionel Burgos, URL When: \.br\ Comments:\.br\ sched cysto\.br\ Where:\.br\ [facility] [address]br\ [place] [address]-\.br\ [phone]\.br\ Medications\.br \ What How Much When Instructions\.b r\ New ciprofloxacin (Cipro 500 mg Tab) 1 Tablets By Mouth Every day take one tab day before procedure and one tab after procedure Pickup at [facility]/pharmacy #[id number]\.br\ Unchanged sildenafil (sildenafil 100 mg Tab) 1 [...] questions or concerns \.br\ Pharmacy Information\.br \ [facility]/pharmacy #[id number]: [address], [place] [id number] [phone]\.br\ Allergies\.br\ Percocet 5/325\.br\ codeine (hives/rashes)\ .br\ Problems\.br\ [...] these instructions at home:\.br\ ? \.br\ Take txtm-jsb-jdnnxt r and prescription medicines only as told [...] to find more information\.br \ ? \.br\ [employer] (ACS): cancer.org\.br\ ? \.br\ National Cancer [place] (NCI): cancer.gov\.br\ Contact a health care provider [...] based on the stage of your cancer.\.br\ [facility] Ambulatory Visit Summary MARY DIAZ [...] Follow-Up Appointments Wednesday 2:20 PM EDT With: Qamar SMITH MD Where: General Surgery [facility] [place] [facility] [address] [place] [address] [place] [address]- \.br\ You Need to Schedule the Following Appointments\.b r\ Follow Up with DEVONTE NOBLE, Lionel Burgos, URL When: \.br\ Comments:\.br\ sched cysto\.br\ Where:\.br\ [facility] [address]br\ [place] [address].br\ [phone]\.br\ Medications\.br \ What How Much When Instructions\.b [...] these instructions at home:\.br\ ? \.br\ Take abic-byr-pacgty r and prescription medicines only as told [...] to find more information\.br \ ? \.br\ [employer] (ACS): cancer.org\.br\ ? \.br\ National Cancer [place] (NCI): cancer.gov\.br\ Contact a health care provider [...] to you by your health care pro [facility] Pathology Noteon 01-20-2023 Pathology Note [id number] 0CD:127 Normal [facility] Patient Educationon 01-21-20 23 Patient [...] Follow these instructions at home: ? Take gvji-jja-kluvbri and prescription medicines only as told by [...] important. Where to find more information ? [employer] (ACS): cancer.org ? National Cancer [place] (NCI): cancer.gov Contact a health care provider [...] have wi (more content not included)... Normal [facility] Urology Office/Clinic Noteon 01-20-2023 Urology [...] injection therapy. Follow-up With When Contact Information DEVONTE NOBLE, Lionel Burgos, URL [facility] [address], [place] [phone] Additional Instructions: sched cysto Patient Education Bladder [...] Arthroplasty of th (more content not included)... Normal [facility] Comment on above: Result Comment: Elec tronically Signed By: Lionel CARRINGTON MD\.br\Date and Time Signed: 01/20/23 11:40 EDT\.br\Electronically Co-Signed By: Lilo Zhou\.br\Date and Time Co-Signed: 01/20/23 11:37 EDT Lab Reportson 01-11-2023 Lab Reports [id number] 0CD:127 Normal [facility] Consent for Procedure/Surger yon 01-05-2023 Consent for Procedure/Surgery [id number]. 00CD:127 [facility] Consent for Treatmenton 12-19 Consent for Treatment [id number] 0CD:127 [facility] IntraOperative Documentson 0 01-05-2023 IntraOperative Documents [id number]. 00CD:127 [facility] Main OR Intraoperative Recor don 01-05-2023 Main OR Intraoperative Record IntraOp Document Type FTURO Summary Primary Physician: Lionel CARRINGTON MD Finalized Date/Time: 01/05/23 10:57:53 Pt. Name: EMILY MARY Verma/Sex: 1950 Male Med Rec #: [id number] Physician: Lionel CARRINGTON MD Financial #: [id number] Pt. Type: O Room/Bed: / Admit/Disch: 01/05/23 09:57:46 - Institution: Case Times FTURO Entry 1 Patient Times In Room 01/05/23 10:38:00 Out Room 01/05/23 10:54:00 Procedure Times Start 01/05/23 10:41:00 Stop 01/05/23 10:50:00 Anesthesia Times Last Modified By: Edgard ZELAYA, Cheryl GALLARDO 01/05/23 10:51:01 Case Attendance FTURO Entry 1 Entry 2 Entry 3 Case Attendee DEVONTE NOBLE, Lionel Rene RN, CNOR, Eulalia GROSS, Zora Luna Role Performed Surgeon - Primary Buffing Wheel Former Machine - Primary Scrub - Primary Time In 01/05/23 10:38:00 01/05/23 10:38:00 01/05/23 10:38:00 Time Out 01/05/23 10:54:00 01/05/23 10:54:00 01/05/23 10:54:00 Procedure CYSTOSCOPY LOCAL(.) CYSTOSCOPY LOCAL(.) CYSTOSCOPY LOCAL(.) Comments Last Modified By: Edgard RN, CNOR, Edgard RN, EDITHOR, EDITH Rene RNOR, Cheryl 01/05/23 Cheryl 01/05/23 Cheryl 01/05/23 10:51:02 10:51:02 10:51:02 Surgical Procedures FTURO Entry 1 Procedure Description Procedure CYSTOSCOPY LOCAL Modifiers . Surgeon Description CYSTO Primary Procedure Yes Primary Surgeon Lionel CARRINGTON MD Start 01/05/23 10:41:00 Stop 01/05/23 10:50:00 Anesthesia Type Local Surgical Service Urology Wound Class 2 - Clean-Contaminated Last Modified By: PAULINA Rene RN, Cheryl 01/05/23 10:51:04 General Case Data FTURO Pre-Care Text: Classifies surgical wound, implements aseptic technique, initiates traffic control Entry 1 Case Information OR URO 1 FT Case Level None Wound Class 2 - Clean-Contaminated Specialty Urology Preop Diagnosis HISTORY OF BLADDER Postop Same As Preop No CANCER Postop Diagnosis HISTORY OF BLADDER Outcomes Met? Yes CANCER, clear bladder Last Modified By: PAULINA Rene RN, Cheryl 01/05/23 10:40:14 Post-Care Text: The patient is [...] Last Modified By: PAULINA Rene RN, Cheryl 01/05/23 10:44:04 Post-Care Text: The patient is [...] PAULINA Rene RN, Ruthann 01/05/23 10:57 Normal [facility] Main OR Preoperative Recordo n 01-05-2023 Main OR Preoperative Record Holding Area Document Type FTURO Summary Primary Physician: Lionel CARRINGTON MD Finalized Date/Time: 01/05/23 10:43:08 Pt. Name: MARY DIAZ/Sex: 1950 Male Med Rec #: [id number] Physician: Lionel CARRINGTON MD Financial #: [id number] Pt. Type: O Room/Bed: / Admit/Disch: 01/05/23 [...] 01/05/23 10:15 Nanci Cortes RN 01/05/23 10:13 Edgard ZELAYA, Cheryl GALLARDO 01/05/23 10:43 Normal [facility] Operative Reporton Operative Report Patient: [...] tumor has developed in these areas.. Normal [facility] Comment on above: Result Comment: Elec tronically Signed By: DEVONTE NOBLE, Lionel Gama.tacos\Date and Time Signed: 01/05/23 10:59 EDT UroVysion Fish and Urine Cyt o ([facility])on 01-05-2023 [facility] Method of Extraction Bladder Wash Normal [facility] Comment on above: Performed By: #### 1 [id number] #### [facility] Laboratory [address] [place] [address] [facility] Number of Jars 1 Invalid Interpretation Code [facility] Comment on above: Performed By: #### 1 [id number] #### [facility] Laboratory [address] [place] [address] [facility] Specimen Urine Normal [facility] Comment on above: Performed By: #### 1 [id number] #### [facility] Laboratory [address] [place] [address] [facility] Type of Service Technical Only Normal [facility] Comment on above: Performed By: #### 1 [id number] #### [facility] Laboratory [address] [place] [address] MR lumbar spine wo [facility] MR lumbar spine wo [facility] Main [address] [address] MRI Report Signed Patient: Mary Diaz MR#: [id number] : 1950 Acct:[id number] Age/Sex: 72 / M ADM Date: 01/01/23 Loc: MR Room: Type: [facility] Attending Dr: Zoran Chavez MD Copies to: [...] Jamaica Alas M.D.01/01/2023 2:48 PM Dictation Location: [facility] Transcribed By: [facility] 01/01/23 144 Dictated By: Jamaica Alas II, MD 01/01/23 144 Signed By: 01/01/23 144 [facility] Retail - Clinical Noteon Retail - Clinical Note [id number] 0CD:127 Normal [facility] XR CSPINE MIN 4 VIEWSon XR CSPINE MIN 4 VIEWS EXAMINATION: XR [...] by: ALLI CORTES Date: 2022-10-23 11:[address] [facility] XR LSPINE W_OBLS AND FLEX_EX Ton 10-23-2022 XR LSPINE W_OBLS AND FLEX_EXT EXAM: XR LSPINE W_OBLS AND FLEX_EXT HISTORY: Low back pain COMPARISON: None. TECHNIQUE: 2 views Findings/impression: Retrolisthesis of L2 over L3 by 4 mm. Multilevel endplate degenerative changes, disc disease, and anterior spurring. Calcified atherosclerotic disease of aorta. No acute fracture. Electronically authenticated by: JAMAICA CARLOS Date: 2022-10-23 13:18 Normal [facility] BNPon 10-06-2022 Natriuretic peptide B (Bld) [Mass/Vol] 844.0 pg/mL Normal <=900.0 [facility] Comment on above: Performed By: #### C VDTB #### [facility] Laboratory [address] [place] [address] Dr. Johnna Dixon CBC AUTO DIFFon 10-06-2022 BASO # 0.0 103/ul Normal 0.0-0.1 [facility] Comment on above: Performed By: #### C BC #### [facility] [address] [place] [address] Dr. Johnna Dixon Basophils/100 WBC (Bld) 0.0 % Critically low 0.2-2.0 [facility] Comment on above: Performed By: #### C BC #### [facility] [address] [place] [address] Dr. Johnna Dixon EO # 0.0 103/ul Normal 0.0-0.7 [facility] Comment on above: Performed By: #### C BC #### [facility] [address] [place] [address] Dr. Johnna Dixon Eosinophils/100 WBC (Bld) 0.0 % Critically low 0.9-7.0 [facility] Comment on above: Performed By: #### C BC #### [facility] [address] [place] [address] Dr. Johnna Dixon Erythrocyte distribution width (RBC) [Ratio] 13.9 % Normal 11.0-15.0 [facility] Comment on above: Performed By: #### C BC #### [facility] [address] [place] [address] Dr. Johnna Dixon Hematocrit (Bld) [Volume fraction] 33.6 % Critically low 42.0-54.0 [facility] Comment on above: Performed By: #### C BC #### [facility] [address] [place] [address] Dr. Johnna Dixon Hemoglobin (Bld) [Mass/Vol] 11.1 g/dL Critically low 14.0-18.0 [facility] Comment on above: Performed By: #### C BC #### [facility] [address] [place] [address] Dr. Johnna Dixon IG # 0.03 10e3/ul Normal 0.00-0.03 [facility] Comment on above: Performed By: #### C BC #### [facility] [address] [place] [address] Dr. Johnna Dixon IG % 0.5 % Normal 0.0-0.5 [facility] Comment on above: Performed By: #### C BC #### [facility] [address] [place] [address] Dr. Johnna Dixon LYMPH # 0.7 103/ul Critically low 1.2-3.8 [facility] Comment on above: Performed By: #### C BC #### [facility] [address] [place] [address] Dr. Johnna Dixon Lymphocytes/100 WBC (Bld) 11.5 % Critically low 20.5-60.0 [facility] Comment on above: Performed By: #### C BC #### [facility] [address] [place] [address] Dr. Johnna Dixon MANUAL DIFF REQ NO Normal [facility] Comment on above: Performed By: #### C BC #### [facility] [address] [place] [address] Dr. Johnna Dixon MCH (RBC) [Entitic mass] 31.0 pg Normal 25.9-34.0 [facility] Comment on above: Performed By: #### C BC #### [facility] [address] [place] [address] Dr. Johnna Dixon MCHC (RBC) [Mass/Vol] 33.0 g/dL Normal 29.9-35.2 [facility] Comment on above: Performed By: #### C BC #### [facility] [address] [place] [address] Dr. Johnna Dixon MCV (RBC) [Entitic vol] 93.9 fL Normal 80.0-94.0 [facility] Comment on above: Performed By: #### C BC #### [facility] [address] [place] [address] Dr. Johnna Dixon MONO # 0.3 103/ul Normal 0.3-0.8 [facility] Comment on above: Performed By: #### C BC #### [facility] [address] [place] [address] Dr. Johnna Dixon Monocytes/100 WBC (Bld) 4.5 % Normal 1.7-12.0 [facility] Comment on above: Performed By: #### C BC #### [facility] [address] [place] [address] Dr. Johnna Dixon NEUT # 5.0 103/ul Normal 1.4-6.5 [facility] Comment on above: Performed By: #### C BC #### [facility] [address] [place] [address] Dr. Johnna Dixon Neutrophils/100 WBC (Bld) 83.5 % Critically high 43.0-75.0 [facility] Comment on above: Performed By: #### C BC #### [facility] [address] [place] [address] Dr. Johnna Dixon Platelet mean volume (Bld) [Entitic vol] 10.3 fL Normal 9.5-13.5 [facility] Comment on above: Performed By: #### C BC #### [facility] [address] [place] [address] Dr. Johnna Dixon PLT 184 103/ul Normal 150-450 [facility] Comment on above: Performed By: #### C BC #### [facility] [address] [place] [address] Dr. Johnna Dixon RBC 3.58 106/ul Critically low 4.70-6.10 [facility] Comment on above: Performed By: #### C BC #### [facility] [address] [place] [address] Dr. Johnna Dixon WBC 6.0 103/ul Normal 4.0-11.0 [facility] Comment on above: Performed By: #### C BC #### [facility] [address] [address] [address] Johnna Dixon PROF 14(COMP METB)on 023 Albumin [Mass/Vol] 2.7 g/dL Critically low 3.4-5.0 [facility] Comment on above: Performed By: #### C VDTBH #### [facility] [address] [place] [address] Dr. Johnna Dixon Albumin/Globulin [Mass ratio] 0.9 {ratio} Normal [facility] Comment on above: Performed By: #### C VDTBH #### [facility] [address] [place] [address] Dr. Johnna Dixon ALP [Catalytic activity/Vol] 32 U/L Critically low 46-116 [facility] Comment on above: Performed By: #### C VDTBH #### [facility] [address] [place] [address] Dr. Johnna Dixon ALT [Catalytic activity/Vol] 19 U/L Normal 16-63 [facility] Comment on above: Performed By: #### C VDTBH #### [facility] [address] [place] [address] Dr. Johnna Dixon Anion gap [Moles/Vol] 14.0 mmol/L Normal [facility] Comment on above: Performed By: #### C VDTBH #### [facility] [address] [place] [address] Dr. Johnna Dixon AST [Catalytic activity/Vol] 12 U/L Critically low 15-37 [facility] Comment on above: Performed By: #### C VDTBH #### [facility] [address] [place] [address] Dr. Johnna Dixon Bilirubin [Mass/Vol] 0.6 mg/dL Normal 0.2-1.0 [facility] Comment on above: Performed By: #### C VDTBH #### [facility] [address] [place] [address] Dr. Johnna Dixon Calcium [Mass/Vol] 8.3 mg/dL Critically low 8.5-10.1 [facility] Comment on above: Performed By: #### C VDTBH #### [facility] [address] [place] [address] Dr. Johnna Dixon Chloride [Moles/Vol] 107 mmol/L Normal 98-107 [facility] Comment on above: Performed By: #### C VDTBH #### [facility] [address] [place] [address] Dr. Johnna Dixon CO2 [Moles/Vol] 24.9 mmol/L Normal 21.0-32.0 [facility] Comment on above: Performed By: #### C VDTBH #### [facility] [address] [place] [address] Dr. Johnna Dixon Creatinine [Mass/Vol] 1.20 mg/dL Normal 0.70-1.30 [facility] Comment on above: Performed By: #### C VDTBH #### [facility] [address] [place] [address] Dr. Johnna Dixon EGFR-AF INDONESIAN >60 Normal >=60 [facility] Comment on above: Performed By: #### C VDTBH #### [facility] [address] [place] [address] Dr. Johnna Dixon EGFR-NON AF INDONESIAN 60 mL/min/1.73m2 Normal >=60 [facility] Comment on above: Performed By: #### C VDTBH #### [facility] [address] [place] [address] Dr. Johnna Dixon Globulin (S) [Mass/Vol] 2.9 g/dL Normal [facility] Comment on above: Performed By: #### C VDTBH #### [facility] [address] [place] [address] Dr. Johnna Dixon Glucose [Mass/Vol] 153 mg/dL Critically high 74-106 [facility] Comment on above: Performed By: #### C VDTBH #### [facility] [address] [place] [address] Dr. Johnna Dixon Potassium [Moles/Vol] 3.9 mmol/L Normal 3.5-5.1 [facility] Comment on above: Performed By: #### C VDTBH #### [facility] [address] [place] [address] Dr. Johnna Dixon Protein [Mass/Vol] 5.6 g/dL Critically low 6.4-8.2 [facility] Comment on above: Performed By: #### C VDTBH #### [facility] [address] [place] [address] Dr. Johnna Dixon Sodium [Moles/Vol] 142 mmol/L Normal 136-145 [facility] Comment on above: Performed By: #### C VDTBH #### [facility] [address] [place] [address] Dr. Johnna Dixon Urea nitrogen [Mass/Vol] 14.0 mg/dL Normal 7.0-18.0 [facility] Comment on above: Performed By: #### C VDTBH #### [facility] [address] [place] [address] Dr. Johnna Dixon Urea nitrogen/Creatinine [Mass ratio] 11.7 mg/mg Normal [facility] Comment on above: Performed By: #### C VDTBH #### [facility] [address] [place] [address] Dr. Johnna Dixon CBC AUTO DIFFon 10-05-2022 BASO # 0.0 103/ul Normal 0.0-0.1 [facility] Comment on above: Performed By: #### S PUTGS #### [facility] [address] [place] [address] Dr. Johnna Dixon Basophils/100 WBC (Bld) 0.2 % Normal 0.2-2.0 [facility] Comment on above: Performed By: #### S PUTGS #### [facility] [address] [place] [address] Dr. Johnna Dixon EO # 0.0 103/ul Normal 0.0-0.7 [facility] Comment on above: Performed By: #### S PUTGS #### [facility] [address] [place] [address] Dr. Johnna Dixon Eosinophils/100 WBC (Bld) 0.2 % Critically low 0.9-7.0 [facility] Comment on above: Performed By: #### S PUTGS #### [facility] [address] [place] [address] Dr. Johnna Dixon Erythrocyte distribution width (RBC) [Ratio] 14.1 % Normal 11.0-15.0 [facility] Comment on above: Performed By: #### S PUTGS #### [facility] [address] [place] [address] Dr. Johnna Dixon Hematocrit (Bld) [Volume fraction] 39.9 % Critically low 42.0-54.0 [facility] Comment on above: Performed By: #### S PUTGS #### [facility] [address] [place] [address] Dr. Johnna Dixon Hemoglobin (Bld) [Mass/Vol] 12.8 g/dL Critically low 14.0-18.0 [facility] Comment on above: Performed By: #### S PUTGS #### [facility] [address] [place] [address] Dr. Johnna Dixon IG # 0.01 10e3/ul Normal 0.00-0.03 [facility] Comment on above: Performed By: #### S PUTGS #### [facility] [address] [place] [address] Dr. Johnna Dixon IG % 0.2 % Normal 0.0-0.5 [facility] Comment on above: Performed By: #### S PUTGS #### [facility] [address] [place] [address] Dr. Johnna Dixon LYMPH # 0.7 103/ul Critically low 1.2-3.8 [facility] Comment on above: Performed By: #### S PUTGS #### [facility] [address] [place] [address] Dr. Johnna Dixon Lymphocytes/100 WBC (Bld) 14.3 % Critically low 20.5-60.0 [facility] Comment on above: Performed By: #### S PUTGS #### [facility] [address] [place] [address] Dr. Johnna Dixon MANUAL DIFF REQ NO Normal [facility] Comment on above: Performed By: #### S PUTGS #### [facility] [address] [place] [address] Dr. Johnna Dixon MCH (RBC) [Entitic mass] 30.7 pg Normal 25.9-34.0 [facility] Comment on above: Performed By: #### S PUTGS #### [facility] [address] [place] [address] Dr. Johnna Dixon MCHC (RBC) [Mass/Vol] 32.1 g/dL Normal 29.9-35.2 [facility] Comment on above: Performed By: #### S PUTGS #### [facility] [address] [place] [address] Dr. Johnna Dixon MCV (RBC) [Entitic vol] 95.7 fL Critically high 80.0-94.0 [facility] Comment on above: Performed By: #### S PUTGS #### [facility] [address] [place] [address] Dr. Johnna Dixon MONO # 0.6 103/ul Normal 0.3-0.8 [facility] Comment on above: Performed By: #### S PUTGS #### [facility] [address] [place] [address] Dr. Johnna Dixon Monocytes/100 WBC (Bld) 12.5 % Critically high 1.7-12.0 [facility] Comment on above: Performed By: #### S PUTGS #### [facility] [address] [place] [address] Dr. Johnna Dixon NEUT # 3.6 103/ul Normal 1.4-6.5 [facility] Comment on above: Performed By: #### S PUTGS #### [facility] [address] [place] [address] Dr. Johnna Dxion Neutrophils/100 WBC (Bld) 72.6 % Normal 43.0-75.0 [facility] Comment on above: Performed By: #### S PUTGS #### [facility] [address] [place] [address] Dr. Johnna Dixon Platelet mean volume (Bld) [Entitic vol] 9.5 fL Normal 9.5-13.5 [facility] Comment on above: Performed By: #### S PUTGS #### [facility] [address] [place] [address] Dr. Johnna Dixon PLT 213 103/ul Normal 150-450 [facility] Comment on above: Performed By: #### S PUTGS #### [facility] [address] [place] [address] Dr. Johnna Dixon RBC 4.17 106/ul Critically low 4.70-6.10 [facility] Comment on above: Performed By: #### S PUTGS #### [facility] [address] [place] [address] Dr. Johnna Dixon WBC 5.0 103/ul Normal 4.0-11.0 [facility] Comment on above: Performed By: #### S PUTGS #### [facility] [address] [place] [address] Dr. Johnna Dixon CULTURE BLOODon 10-05-2022 Microscopic examination of blood, culture Culture Observations: NO GROWTH AT [address] [facility] Comment on above: Performed By: #### B LDCX2 #### [facility] [address] [place] [address] Dr. Johnna Dixon Microscopic examination of blood, culture Culture Observations: NO GROWTH AT [address] [facility] Comment on above: Performed By: #### S PUTGS #### [facility] [address] [place] [address] Dr. Johnna Dixon CULTURE SPUTUMon 10-05-2022 CULTURE SPUTUM Culture Observations : NORMAL RESPIRATORY JONATAN. Normal [facility] Comment on above: Performed By: #### S PUTGS #### [facility] [address] [place] [address] Dr. Johnna Dixon [facility] SARS-CoV-2 (COVID-19) RNA REX+probe Ql (Unsp spec) Not detected Normal NOT DETECTED [facility] Comment on above: Result Comment: This test is not yet approved or cleared by the [place] FDA. When there are no FDA-approved or cleared tests available, and other criteria are met, FDA can make tests available under an emergency access mechanism called an Emergency Use Authorization (EUA). The EUA for this test is supported by the [employer] of Health and Human Service's (HHS's) declaration [...] SARS-CoV-2. Performed By: #### C VDTB #### [facility] [address] [place] [address] Dr. Johnna Dixon LACTATE/LACTIC ACIDon 2022 Lactate [Moles/Vol] 1.2 mmol/L Normal 0.4-2.0 [facility] Comment on above: Performed By: #### L ACT #### [facility] [address] [place] [address] Dr. Johnna Dixon Lactate [Moles/Vol] 2.4 mmol/L Critically high 0.4-2.0 [facility] Comment on above: Performed By: #### L ACT #### [facility] [address] [place] [address] Dr. Johnna Dixon Lab Reportson 10-05-2022 Lab Reports [id number]:[id number] Normal [facility] PROF CHEM 8 (BAS METB)on Anion gap [Moles/Vol] 12.6 mmol/L Normal [facility] Comment on above: Performed By: #### B MP #### [facility] [address] [place] [address] Dr. Johnna Dixon Calcium [Mass/Vol] 8.9 mg/dL Normal 8.5-10.1 [facility] Comment on above: Performed By: #### B MP #### [facility] [address] [address] [address] Johnna Dixon Chloride [Moles/Vol] 106 mmol/L Normal 98-107 [facility] Comment on above: Performed By: #### B MP #### [facility] [address] [address] [address] Johnna Dixon CO2 [Moles/Vol] 25.8 mmol/L Normal 21.0-32.0 [facility] Comment on above: Performed By: #### B MP #### [facility] [address] [address] [address] Johnna Dixon Creatinine [Mass/Vol] 1.41 mg/dL Critically high 0.70-1.30 [facility] Comment on above: Performed By: #### B MP #### [facility] [address] [place] [address] Dr. Johnna Dixon EGFR-AF INDONESIAN >60 Normal >=60 [facility] Comment on above: Performed By: #### B MP #### [facility] [address] [place] [address] Dr. Johnna Dixon EGFR-NON AF INDONESIAN 50 mL/min/1.73m2 Critically low >=60 [facility] Comment on above: Performed By: #### B MP #### [facility] [address] [address] [address] Johnna Dixon Glucose [Mass/Vol] 111 mg/dL Critically high 74-106 [facility] Comment on above: Performed By: #### B MP #### [facility] [address] [address] [address] Johnna Dixon Potassium [Moles/Vol] 3.4 mmol/L Critically low 3.5-5.1 [facility] Comment on above: Performed By: #### B MP #### [facility] [address] [place] [address] Dr. Johnna Dixon Sodium [Moles/Vol] 141 mmol/L Normal 136-145 [facility] Comment on above: Performed By: #### B MP #### [facility] [address] [address] [address] Johnna Dixon Urea nitrogen [Mass/Vol] 17.0 mg/dL Normal 7.0-18.0 [facility] Comment on above: Performed By: #### B MP #### [facility] [address] [address] [address] Johnna Dixon Urea nitrogen/Creatinine [Mass ratio] 12.1 mg/mg Normal [facility] Comment on above: Performed By: #### B MP #### [facility] [address] [address] [address] Johnna Dixon SPUTUM GRAM STAINon 10-06-[address] [facility] Comment on above: Performed By: #### S PUTGS #### [facility] [address] [place] [address] Dr. Johnna Dixon DIPHTHEROIDS Normal [facility] Comment on above: Performed By: #### S PUTGS #### [facility] [address] [address] [address] Johnna Dixon EPITHELIALS <[address] [facility] Comment on above: Performed By: #### S PUTGS #### [facility] [address] [address] [address] Johnna Dixon FUNGAL ELEMENTS Normal [facility] Comment on above: Performed By: #### S PUTGS #### [facility] [address] [address] [address] Johnna Dixon GRAM NEG BACILLI FEW Normal [facility] Comment on above: Performed By: #### S PUTGS #### [facility] [address] [address] [address] Johnna MILLS NEG DIPPLOCOCCI Normal [facility] Comment on above: Performed By: #### S PUTGS #### [facility] [address] [place] [address] Dr. Johnna Dixon GRAM POS BACILLI Normal [facility] Comment on above: Performed By: #### S PUTGS #### [facility] [address] [place] [address] Dr. Johnna Dixon GRAM POSITIVE COCCI FEW Normal [facility] Comment on above: Performed By: #### S PUTGS #### [facility] [address] [place] [address] Dr. Johnna Dixon WBC (Bld) [#/Vol] 10*3/uL Normal [facility] Comment on above: Performed By: #### S PUTGS #### [facility] [address] [place] [address] Dr. Johnna Dixon SYMPTOMATIC COVID-19 ANTIGEN on 10-05-2022 EUA Statement SEE BELOW Normal [facility] Comment on above: Result Comment: This [...] is revoked sooner. Performed By: #### C VDAGS #### [facility] [address] [place] [address] Dr. Johnna Dixon SARS-CoV-2 (COVID-19) RNA REX+probe Ql (Unsp spec) Negative Normal NEGATIVE [facility] Comment on above: Performed By: #### C VDAGS #### [facility] [address] [place] [address] Dr. Johnna Dixon XR CHEST 1 Von [...] SOCORRO SERRANO Date: 2022-10-05 11:44 Normal [facility] Coding Summary.on 10-01-2022 Coding Summary. CD:[id number] Ww +PGhlYWQ+AZ3EITOtI71ue NDjjW9yH7SDHHaBNsasVIC HZQyRQaGaqsGsFE0wmWCoQ XJu IC8+CW4uVVPfZhwlpUPiq0 B0sEF8U56qvc1cTKsbfEU3 FSOxYxRzfbbhn0fjvCf1HB cuNmluOyBt IAZmjH84YHX6kW80Ip50fU DdnWVmv5xcqJv5QtDjSNIn IRR2hAbxTBfxe0TeDMHwZ6 8rfGUza8J6 JHIaeMroaRViUtJncER2kP 3nVGszsuraj2rrqnoeAix3 kk18nLVfo1I7eUN1A6Fgtr T5HQMrlNOm LxfccOKOqA9hqnadl7ferv weIyAyWWPbEEz5VVn8PFXu uLcnSyEnGV84FIH2BXRuxj ZpW8WqHYEa bPzoEdS6a0I7Ny0ZR5TRNt gfB7IJNQOJOWchkBB+PC90 ix03J9HfRjpyMnx3FEWtQO E2wCC6gK4q AWZaIPybu8M8xEV9F9Njts Xbro9cb9pwOJSiGAkoV20e kRXyj0U7OTUvaTT5MHPdnH leXcBhvF42 Oyc+PVAedKkut2QaSydtp1 kon3razOc7NfikLFJwupIp yGtkTIN9l7IbIk3mBZRqdP C6fZF9dL0x YjFwJtX8LBaxT120QwOukB ZtXjhnM24nK7ZcdFR+PHRy Tgw6PJZmpSejSJ4nY6TcHJ RpbmctbGVm uYdhFM0rCHVwbiztWCTfuR 9xISDqY7r9ScSoXsR0FMre J9FdUGMmatdvZe59eD5zUx ZsDbY6DAtt M3XhxbX4YZUmcJJeIRksKK P8T16xa8S9PMXkHRUyELP5 qHG6iO4nmYfwpxrmsLNnlJ sgdmVydGlj YOtkXAzoZ666LDPkyQzqDt NvZGluZyBEYXRlOiAgMDQv MTMvMjAyMzwvdGQ+PHRkIH L0qEovNDUq pPRkMCgkEk7xqBfupSpqDI 9sQDFnrbrbIDXxeS4bJYUb fVOykPihTM2vTYLfggicx9 34JvJnMLK8 FCXjlZDyO1BnqO6bBhGzGE WkFKRlL4YknAWmVUflI273 JFjrDxN1STEndxLvQ9QnRT FsaWduOiB0 m8X7Bk2Mr4MqxorlC2HrxI YrFiPxPqgwCTu6A2FsXcbo dHI+VR36XRGdWK54HZc2XV G7vHrsQJuy MLYkU0ZeoI9wHsDcVAFjQJ RkOyc+PHRhYmxlIHdpZHRo SJzhQWCsYhBtfXeeQE6jZk 9yZGVyLWNv fPriaFTaZeXjv5uuSNAtMY pmJM0seKumA3SdpOW9RWLr w1f5Eo20W71bP1ZtvAL+PG PryEB4mBB0 rC5aXrNfJmK6CAycT626Qi IleXBxBtuys5qfi6ikyFl3 HyK2RGSuuxVhwSqzFJS9w9 JtKv11H99c IHdpZHRoPSIxNSUiIHZhbG bvix8qfG7jSv6+PGNvbCB3 sUO2jK2wNeIaGbA1UOslT0 49InRvcCIv Ujrgj6atr5pdgVq6TjQyEL RwvlNlhOgaJEQ0s6HxIv21 G0SovAaen4ZrLip9cb31iY Wcl2I1oVU6 U9FkFQMsmlhmdBVxwZbtLL 7yCFQaqxxnQKWhuG8rZLBx H4r0MxBoTlC8CKquZ8Ziii I4RGUzaYBc UAYwdHSMaH7szymcb1rzul xdQyJiUIHkUVj5OVr4OYJt cVvvYbAzKJX3UeV4JJT9cB MvqU5phYxj zojamH3zDbl+FDX6yUWrvT AFPZ8tBhxkzBX+PHRkIHN0 mRksMRprNDKivE8lAHYaA4 v3JoKjKyT4 XChjO2FhafP1PRMowXXlVS FkbZUAjF2whllxh1etmexq BmEbVLPrRTt4POl2MNQegJ duOiBsZWZ0 YzT2URY2dBOrtJ1hoSiymj jirW9iRso+QmlydGggRGF0 NFh3N7FiQls6CVZfkOrjAO 0ncGFkZGlu Un6erCmhkCdfOF7yMNVtlp uzx742VfDss9xeXEQwqUSo WTqnZWH1M06uq9Q3HKOdXD CtVWI7aPT1 vU1idEybhvrykWUpbAtrob UykLtuJNupDErlY311PJMf kRlmHaBeZKj0F1MkVds5CL WecNemLL2o uGRyOPomIu3ntSnowVvuLO 9pURPcvfazj496OoZyu2ke SQYqxQMnSZohCYC3U86fj7 K3XIDrDDPt XPW1nVP1cL9hwXjjfxifmX VmdDsgdmVydGljYWwtYWxp R235YXKwpWjkDqGbwOz5H9 XbFuw3TVNh hVqdNK9vkDLkMSdfSd0wkH oumRygOP2vMBUautflw347 PnIoa6deTJVnzCGhBStqAN H9U02zi1U5 UYQsIJYcOWH9xRR8pO1kzV lnbjogbGVmdDsgdmVydGlj FRbuADlgK989NATkiNnhBy BhdGllbnQg NBmhIZp3S6AtVexujRC+PC 73IDIhTK27sUIwjYHtc8qc lYa1HpOiDJOiGYJ9qOfaXO gva9BgABKl J29zzZWpk2Z5EEBtbXbkyY BlDoTvvOM8qV5mIOlkegjj l1hzfpseBeeqp2ibkc50fS 00S56cSLsz ZHRoPSIzMCUiIHZhbGlnbj 1fhT9gQk7+QDGqjIO1tGS0 qY6pTBAwSkM0NUoxJ045Dc RvcCIvPjxj u0zls7povNz2SeI2FAColh HvvIihGNY0n0NuJl67E36f IHdpZHRoPSIyMCUiIHZhbG zyit4qgM2r Ii8+SJQdhDU2cIV9aG5xPc TlEwI2VDijL205VeYqsCLu KpjmB49lT6DqxWK+PHRyPj y4IOUgrEtr XM4vfWJwQEjvDj8oLRQ0Dr ZkOwChARbbD1HoYOSgmyng dvwufDC9SQHtNUKkkR18Cg 9udDogMTBw eDAMrS1giyyum4gowejhIj DvURDvWCu9TAn1HXEjzJid GpLfTHZ2CrS5BDJ6iCJvpH 1hbGlnbjog kY1nE0JjRNJykjdjCi20eI 1lXmWbRwM9XWwpUys+S0xJ PsdHPKPoVDfSDVGAEL77A8 LrNma0EGGb wSgpYE3zvJXwJJnnDo9wkV glwJilKC4uGNUfjlyuYOLm kL5aMDPayFGbdQgpOQ7uWM Ydnnauc568 XhJlKEB4BTRvkARwQ6UlyN 0vUbLkUXBqRIAaB3RnkLRr SIcnX100HOijTvZ1RYJgqp TfA8AjYWOl uBsnFsR9r2I7Ed5xLR3sSJ 9gODPgYK47LX59aICuz5R9 kMP7G9HwQNMrsvfpktqyyF S5GSTnOPLo mB19tEHwZAzwHy0ka3U3g1 49COYgQTMaiO85Si1sjEci RYTzgLLNcN9kppnqg6ptec ogIzAwMDAw ZAb6SAg3XEArpZzyQfBqIU I7FiH7FTC0mDBpuA5lyDjo dabpxJ6bYjs+NzEgWWVhcn S4B0VdTuq6 MGYqoKjzYW6yjULxNEraKi 6yqJsfnTvxFS6oLHRtgmsv LJMyiF1wSRFqkYYcdRsrUF 4wNTBpbjtm k785DbBhMET3HHGfmHVcJ2 ZhtR1iYhFfLKPqEEXsE9Ss jILxHUvtD012LCfhZuT6CO PtiwRpK7Dz GNRjwBsjIaI5e1M2Dn8HND xxJM30XQ33oOThj0R4lRM8 J3NjXMHvjgxsjnuqrCJ2QG BpBZIhoM09 jEZcCUrtVt1gs4O4o794VB GrLXHbiP05Ge8tyDcmLJOv xUEJdD5hhmaww8hiavnhQg AwMDAwMDt0 SEe7NDOqeChfEaAsTEN6Li Z6HRT0cQOgxG1lwHoibyag pA7iPhy+J2I3eNS3yDIbhX wvdGQ+PC90 wd27I1QdNmfjQds8KANoOW P3vZQ2iB4eSCKqPRyam8J9 aQX9P6TyyeCpbo0hg1jgZR MuRKdnR71x lAHzm3Z4QIOszLB8IHTnoW thYvRecQ15Waq+PGNvbGdy t2KwViqpp4nhl2eggPh2Ev MwJSIgdmFs tTioNFR9s4FeAn38E83qRY dpZHRoPSIzMCUiIHZhbGln sq7igN4cWn9+MZVgkBK6yE F3iG6pEgMf DrV2SDfcT771UlNzaZZmDq fab0qkf9dmcTn2OdBlVTZr mkRyhTvkJUY5b6YfDc19F1 VjrTtzx1Ix Guz0pc57jHEqi3Y4iEI6B3 XvPJKcogsviEQxcFpnAT7b THJotgsvZJShzD6jUHBfZ9 w6VmYoBeM2 ZBthF7AobeJ0ZTPuiSIxGQ DipZBKuL5tzscol7qitrfr YgOpWQDvFKp5AJr1EKDvwB duOiBsZWZ0 CnI8ZYX9vZTfyF5nsOpwnx lvmQ4eYmo+GZk5h3pduHPt ZH9vbYA4IW35FI50rMUqz5 Z2kYU2A6Nr ARGptgmbtrtfjPJ3KNGeXX EigB48Tg9mfSixOd5wLHHi FCB1EMKerNTeM9FciN1gXh AjMDAwMDAw H8YmjAFaPJxwI664EAuhPu D0AYZftiBrT3MdYTXzkXab AxX2q3K1Fs9KMA20WY01ZU 42zBSwl4Y1 nEH5K2RjZMLzadzxsytvzM U1ELZjLDIjbN00Ei8esElw Oh4nXZLrSME7AARysAKfU3 GhjU4lIrUo USMaRVWxD3SmaULgRHtbG5 75PMavZhM7BUXbkoTwL0It YGTfyEouTkO7u4Q1Kr2DWk 83QG79KE32 jCDki0Y9lAN6Z7QwIESkyk krtaltnWI4MHDsENVgqP43 Ad4yzZcdZp7sEOIbXZU2DM CwpHYsI0Pm nL1jHaIjSIWuMUBsY2SeuY OnHQgtL014FGgiHyP9DEYw mbLdO3DrMJSsrLsjYnR9n3 X3Ab6SQFyz rdt8O6KeJvbxeLY+PC90YW FrKQ13vVCouRHjn6eliNo7 SuJrJUCpYAV2eUkjBBctc1 UsAIUvH52n lBCfh2U7 (more content not included)... Normal [facility] Consent for Procedure/Surger yon 09-29-2022 Consent for Procedure/Surgery [id number]#1.00 CD:127 [facility] Consent for Treatmenton 09-19 Consent for Treatment [id number]#1.0 0CD:127 [facility] IntraOperative Documentson 0 09-29-2022 IntraOperative Documents [id number]#1.00 CD:127 [facility] Main OR Intraoperative Recor don 09-29-2022 Main OR Intraoperative Record IntraOp Document Type FTURO Summary Primary Physician: Lionel CARRINGTON MD Finalized Date/Time: 09/29/22 10:53:58 Pt. Name: MARY DIAZ/Sex: 1950 Male Med Rec #: [id number] Physician: Lionel CARRINGTON MD Financial #: [id number] Pt. Type: O Room/Bed: / Admit/Disch: 09/29/22 10:00:50 - Institution: Case Times FTURO Entry 1 Patient Times In Room 09/29/22 10:48:00 Out Room 09/29/22 11:00:00 Procedure Times Start 09/29/22 10:50:00 Stop 09/29/22 10:55:00 Anesthesia Times Last Modified By: Edgard ZELAYA, EDITHOR, Cheryl 09/29/22 10:53:40 Case Attendance FTURO Entry 1 Entry 2 Entry 3 Case Attendee DEVONTE NOBLE, Lionel Rene RN, CNOR, Safia GROSS, Nanci Luna Role Performed Surgeon - Primary Buffing Wheel Former Machine - Primary Scrub - Primary Time In 09/29/22 10:48:00 09/29/22 10:48:00 09/29/22 10:48:00 Time Out 09/29/22 11:00:00 09/29/22 11:00:00 09/29/22 11:00:00 Procedure CYSTOSCOPY LOCAL(.) CYSTOSCOPY LOCAL(.) CYSTOSCOPY LOCAL(.) Comments Last Modified By: Edgard ZELAYA, EDITHOR, Edgard ZELAYA, EDITHOR, Edgard ZELAYA, EDITHOR, Cheryl 09/29/22 Cheryl 09/29/22 Cheryl 09/29/22 10:53:43 10:53:43 10:53:43 Surgical Procedures FTURO Entry 1 Procedure Description Procedure CYSTOSCOPY LOCAL Modifiers . Surgeon Description CYSTOSCOPY Primary Procedure Yes Primary Surgeon DEVONTE NOBLE, Lionel Burgos Start 09/29/22 10:50:00 Stop 09/29/22 10:55:00 Anesthesia Type Local Surgical Service Urology Wound Class 2 - Clean-Contaminated Last Modified By: PAULINA Rene RN, Ruthann 09/29/22 10:53:45 General Case Data FTURO Pre-Care [...] PROSTATE CANCER, clear bladder Last Modified By: EDITH Rene RNOR, Cheryl 09/29/22 10:53:27 Post-Care Text: The patient [...] Participants Edgard ZELAYA, EDITHOR, Applicable) Safia Luna MAINTENANCE MILLWRIGHT, Nanci Baxter Time Out Complete 09/29/22 10:49:00 Allergies Reviewed? [...] Rene RN, Ruthann Document Signatures Signed By: PUALINA Rene RN, Ruthann 09/29/22 10:53 Normal [facility] Main OR Preoperative Recordo n 09-29-2022 Main OR Preoperative Record Holding Area Document Type FTURO Summary Primary Physician: Lionel CARRINGTON MD Finalized Date/Time: 09/29/22 10:52:30 Pt. Name: MARY DIAZ/Sex: 1950 Male Med Rec #: [id number] Physician: Lionel CARRINGTON MD Financial #: [id number] Pt. Type: O Room/Bed: / Admit/Disch: 09/29/22 [...] No Pain Comment: na Skin Integrity Intact, [place]son, Warm, & Dry Vitals - EU Blood Pressure 148/82 Pulse 53 bpm Respirations 16 br/min SPO2 96 % RN Reviewed Yes Last Modified By: PAULINA Rene RN, Ruthann 09/29/22 10:52:28 General Comments: temp:36.5 Finalized By: PAULINA Rene RN, Ruthann Document Signatures Signed By: Iram Thomas LPN 09/29/22 10:28 PAULINA Rene RN, Ruthann 09/29/22 10:52 Normal [facility] Operative Reporton 3 Operative Report Patient: MARY DIAZ Age: 72 [...] with antibiotic coverage, Follow up arranged. Normal [facility] Comment on above: Result Comment: Elec tronically Signed By: DEVONTE NOBLE, Lionel Gama.tacos\Date and Time Signed: 09/29/22 10:57 EDT Urine Cytology ([facility])on 0 09-28-2022 Urine Cytology Diagnosis Info Invalid Interpretation Code [facility] Comment on above: Result Comment: A:Ur ine,Urine:Voided Interpretation - MicroScopic Description - Adequacy - Gross Description Site ID:A color Yellow fixative Alcohol Specimen designated Urine received in alcohol preservative and labeled with the patient?s name, consists of 40ml clear yellow fluid. Electronically signed by : on: 09/28/2022 09:14:07 Performed By: #### 1 [id number] ####[facility] [address] [place] [address] US SINGLE QUAD RT UPPERon US SINGLE [...] SOCORRO HUFFMAN Date: 2022-09-24 09:46 Normal [facility] AMYLASEon 09-21-2022 Amylase [Catalytic activity/Vol] 78 U/L Normal 25-115 [facility] Comment on above: Performed By: #### C VDTBH #### [facility] [address] [place] [address] Dr. Johnna Dixon CBC AUTO DIFFon 09-21-2022 BASO # 0.0 103/ul Normal 0.0-0.1 [facility] Comment on above: Performed By: #### C VDTBH #### [facility] [address] [place] [address] Dr. Johnna Dixon Basophils/100 WBC (Bld) 0.5 % Normal 0.2-2.0 [facility] Comment on above: Performed By: #### C VDTBH #### [facility] [address] [place] [address] Dr. Johnna Dixon EO # 0.1 103/ul Normal 0.0-0.7 [facility] Comment on above: Performed By: #### C VDTBH #### [facility] [address] [place] [address] Dr. Johnna Dixon Eosinophils/100 WBC (Bld) 1.9 % Normal 0.9-7.0 [facility] Comment on above: Performed By: #### C VDTBH #### [facility] [address] [place] [address] Dr. Johnna Dixon Erythrocyte distribution width (RBC) [Ratio] 14.5 % Normal 11.0-15.0 [facility] Comment on above: Performed By: #### C VDTBH #### [facility] [address] [place] [address] Dr. Johnna Dixon Hematocrit (Bld) [Volume fraction] 39.1 % Critically low 42.0-54.0 [facility] Comment on above: Performed By: #### C VDTBH #### [facility] [address] [address] [address] Johnna Dixon Hemoglobin (Bld) [Mass/Vol] 12.8 g/dL Critically low 14.0-18.0 [facility] Comment on above: Performed By: #### C VDTBH #### [facility] [address] [place] [address] Dr. Johnna Dixon IG # 0.05 10e3/ul Critically high 0.00-0.03 [facility] Comment on above: Performed By: #### C VDTBH #### [facility] [address] [place] [address] Dr. Johnna Dixon IG % 0.7 % Critically high 0.0-0.5 [facility] Comment on above: Performed By: #### C VDTBH #### [facility] [address] [place] [address] Dr. Johnna Dixon LYMPH # 2.0 103/ul Normal 1.2-3.8 [facility] Comment on above: Performed By: #### C VDTBH #### [facility] [address] [place] [address] Dr. Johnna Dixon Lymphocytes/100 WBC (Bld) 27.4 % Normal 20.5-60.0 [facility] Comment on above: Performed By: #### C VDTBH #### [facility] [address] [place] [address] Dr. Johnna Dixon MANUAL DIFF REQ NO Normal [facility] Comment on above: Performed By: #### C VDTBH #### [facility] [address] [place] [address] Dr. Johnna Dixon MCH (RBC) [Entitic mass] 31.3 pg Normal 25.9-34.0 [facility] Comment on above: Performed By: #### C VDTBH #### [facility] [address] [place] [address] Dr. Johnna Dixon MCHC (RBC) [Mass/Vol] 32.7 g/dL Normal 29.9-35.2 [facility] Comment on above: Performed By: #### C VDTBH #### [facility] [address] [address] [address] Johnna Dixon MCV (RBC) [Entitic vol] 95.6 fL Critically high 80.0-94.0 [facility] Comment on above: Performed By: #### C VDTBH #### [facility] [address] [place] [address] Dr. Johnna Dixon MONO # 0.5 103/ul Normal 0.3-0.8 [facility] Comment on above: Performed By: #### C VDTBH #### [facility] [address] [place] [address] Dr. Johnna Dixon Monocytes/100 WBC (Bld) 6.9 % Normal 1.7-12.0 [facility] Comment on above: Performed By: #### C VDTBH #### [facility] [address] [place] [address] Dr. Johnna Dixon NEUT # 4.7 103/ul Normal 1.4-6.5 [facility] Comment on above: Performed By: #### C VDTBH #### [facility] [address] [place] [address] Dr. Johnna Dixon Neutrophils/100 WBC (Bld) 62.6 % Normal 43.0-75.0 [facility] Comment on above: Performed By: #### C VDTBH #### [facility] [address] [place] [address] Dr. Johnna Dixon Platelet mean volume (Bld) [Entitic vol] 9.3 fL Critically low 9.5-13.5 [facility] Comment on above: Performed By: #### C VDTBH #### [facility] [address] [place] [address] Dr. Johnna Dixon PLT 235 103/ul Normal 150-450 [facility] Comment on above: Performed By: #### C VDTBH #### [facility] [address] [place] [address] Dr. Johnna Dixon RBC 4.09 106/ul Critically low 4.70-6.10 [facility] Comment on above: Performed By: #### C VDTBH #### [facility] [address] [place] [address] Dr. Johnna Dixon WBC 7.4 103/ul Normal 4.0-11.0 [facility] Comment on above: Performed By: #### C VDTBH #### [facility] [address] [place] [address] Dr. Johnna Dixon LIPASEon 09-21-2022 Lipase [Catalytic activity/Vol] 114.0 U/L Normal 73.0-393.0 [facility] Comment on above: Performed By: #### C VDAGS #### [facility] [address] [place] [address] Dr. Johnna Dixon LIVER PROFILEon 09-21-2022 Albumin [Mass/Vol] 3.9 g/dL Normal 3.4-5.0 [facility] Comment on above: Performed By: #### C VDTBH #### [facility] [address] [place] [address] Dr. Johnna Dixon Albumin/Globulin [Mass ratio] 1.6 {ratio} Normal [facility] Comment on above: Performed By: #### C VDTBH #### [facility] [address] [place] [address] Dr. Johnna Dixon ALP [Catalytic activity/Vol] 59 U/L Normal 46-116 [facility] Comment on above: Performed By: #### C VDTBH #### [facility] [address] [place] [address] Dr. Johnna Dixon ALT [Catalytic activity/Vol] 23 U/L Normal 16-63 [facility] Comment on above: Performed By: #### C VDTBH #### [facility] [address] [place] [address] Dr. Johnna Dixon AST [Catalytic activity/Vol] 8 U/L Critically low 15-37 [facility] Comment on above: Performed By: #### C VDTBH #### [facility] [address] [place] [address] Dr. Johnna Dixon BILI, CONJUGATED 0.1 mg/dL Normal 0.0-0.2 [facility] Comment on above: Performed By: #### C VDTBH #### [facility] [address] [place] [address] Dr. Johnna Dixon Bilirubin [Mass/Vol] 0.3 mg/dL Normal 0.2-1.0 [facility] Comment on above: Performed By: #### C VDTBH #### [facility] [address] [place] [address] Dr. Johnna Dixon Globulin (S) [Mass/Vol] 2.5 g/dL Normal [facility] Comment on above: Performed By: #### C VDTBH #### [facility] [address] [place] [address] Dr. Johnna Dixon Protein [Mass/Vol] 6.4 g/dL Normal 6.4-8.2 [facility] Comment on above: Performed By: #### C VDTBH #### [facility] [address] [place] [address] Dr. Johnna Dixon PROF CHEM 8 (BAS METB)on Anion gap [Moles/Vol] 13.4 mmol/L Normal [facility] Comment on above: Performed By: #### C VDTBH #### [facility] [address] [place] [address] Dr. Johnna Dixon Calcium [Mass/Vol] 8.9 mg/dL Normal 8.5-10.1 [facility] Comment on above: Performed By: #### C VDTBH #### [facility] [address] [place] [address] Dr. Johnna Dixon Chloride [Moles/Vol] 106 mmol/L Normal 98-107 [facility] Comment on above: Performed By: #### C VDTBH #### [facility] [address] [place] [address] Dr. Johnna Dixon CO2 [Moles/Vol] 25.6 mmol/L Normal 21.0-32.0 [facility] Comment on above: Performed By: #### C VDTBH #### [facility] [address] [address] [address] Johnna Dixon Creatinine [Mass/Vol] 1.21 mg/dL Normal 0.70-1.30 [facility] Comment on above: Performed By: #### C VDTBH #### [facility] [address] [address] [address] Johnna Dixon EGFR-AF INDONESIAN >60 Normal >=60 [facility] Comment on above: Performed By: #### C VDTBH #### [facility] [address] [address] [address] Johnna Dixon EGFR-NON AF INDONESIAN 59 mL/min/1.73m2 Critically low >=60 [facility] Comment on above: Performed By: #### C VDTBH #### [facility] [address] [address] [address] Johnna Dixon Glucose [Mass/Vol] 115 mg/dL Critically high 74-106 [facility] Comment on above: Performed By: #### C VDTBH #### [facility] [address] [address] [address] Johnna Dixon Potassium [Moles/Vol] 4.0 mmol/L Normal 3.5-5.1 [facility] Comment on above: Performed By: #### C VDTBH #### [facility] [address] [place] [address] Dr. Johnna Dixon Sodium [Moles/Vol] 141 mmol/L Normal 136-145 [facility] Comment on above: Performed By: #### C VDTBH #### [facility] [address] [address] [address] Johnna Dixon Urea nitrogen [Mass/Vol] 19.0 mg/dL Critically high 7.0-18.0 [facility] Comment on above: Performed By: #### C VDTBH #### [facility] [address] [place] [address] Dr. Johnna Dixon Urea nitrogen/Creatinine [Mass ratio] 15.7 mg/mg Normal [facility] Comment on above: Performed By: #### C VDTBH #### [facility] [address] [address] [address] Johnna Dixon Patient Educationon 09-22-19 Patient Education Oncology Cancer Screening for Men [...] if anything looks unusual. Men with a cjktki-ymrb-lpgpjt risk for skin cancer may want to see a residential specialist (ballistician) for an annual body check. Where to find more information ? National Cancer Ce[employer]: https://www.cancer.gov /about-cancer/screenin g ? Centers for Disease Control and Prevention: https://www.cdc.gov/ca ncer/dcpc/prevention/s creening.htm ? [employer]: https://www.cancer.org /latest-news/4-cancer- dyofknvem-yjeds-kjk-me n.html Contact a health care (more content not included)... Normal [facility] Urine Cytology ([facility])on 0 09-21-2022 Method of Extraction Voided Normal [facility] Comment on above: Performed By: #### 1 [id number] ####[facility] [address] [place] [address] Number of Jars 1 Invalid Interpretation Code [facility] Comment on above: Performed By: #### 1 [id number] ####[facility] [address] [place] [address] Specimen Urine Normal [facility] Comment on above: Performed By: #### 1 [id number] ####[facility] [address] [place] [address] Type of Service Technical Only Normal [facility] Comment on above: Performed By: #### 1 [id number] ####[facility] [address] [facility] [address] Ambulatory Visit Summaryon 0 08-17-2022 Ambulatory Visit Summary MARY DIAZ :1950 Visit Date:08/17/2022 Ambulatory Visit Instructions Your Care Team Attending Physician - Lionel [...] Lionel Burgos Where: [facility] Normal [facility] CREATININEon 08-04-2022 Creatinine [Mass/Vol] 1.31 mg/dL Critically high 0.70-1.30 [facility] Comment on above: Performed By: #### C JANIS #### [facility] [address] [place] [address] Dr. Johnna Dixon EGFR-AF INDONESIAN >60 Normal >=60 [facility] Comment on above: Performed By: #### C JANIS #### [facility] [address] [address] [address] Johnna Dixon EGFR-NON AF INDONESIAN 54 mL/min/1.73m2 Critically low >=60 [facility] Comment on above: Performed By: #### C JANIS #### [facility] [address] [place] [address] Dr. Johnna Dixon CTA NECK WO W [...] by: ALLI CORTES Date: 2022-08-04 14:[address] [facility] US CAROTID ART BILon 023 US CAROTID [...] by: ALLI CORTES Date: 2022-07-28 12:[address] [facility] Ambulatory Visit Summaryon 0 07-20-2022 Ambulatory Visit Summary MARY DIAZ :1950 Visit Date:07/20/2022 Ambulatory Visit Instructions Your Diagnosis History of bladder cancer Tests Performed Urnls Dip Stick Auto w/o Microscopy POC 17847 Your Care Team Attending Physician - DEVONET NOBLE, Lionel Burgos Primary Care Physician - [...] AM EST With: Where: [facility] Normal [address] [place] [address] [place] [address]- \.br\ Medications\.br \ What How Much When [...] Urnls Dip Stick Auto w/o Microscopy POC 36697 (07/20/2022)\.b r\ POC Test Comments - UA prior to Mitomycin tx\.br\ Bilirubin Urine Dipstick - Negative\.br\ Blood Urine Dipstick - Negative\.br\ Glucose Urine Dipstick - Negative\.br\ Ketones Urine Dipstick - Negative\.br\ Leukocytes Urine Dipstick - Negative\.br\ Nitrite Urine Dipstick - Negative\.br\ Protein Urine Dipstick - Negative\.br\ Specific [place] Urine Dipstick - 1.020\.br\ Urine Appearance Urine [...] for.\.br\ Acid reflux\.br\ Cancer of prostate\.br\ \.br\ [facility] Consent for Procedure/Surger yon 07-15-2022 Consent for Procedure/Surgery [id number]#1.0 0CD:127 Normal [facility] Consent for Procedure/Surgery [id number]#1.0 0CD:127 Normal [facility] UroVysion FISH (fl3ur)on 0 07-15-2022 UroVysion FISH Diagnosis Info Invalid Interpretation Code [facility] Comment on above: Result Comment: [...] on: 07/15/2022 15:42:11 Performed By: #### 1 [id number] #### [facility] [address] [place] [address] Coding Summary.on 07-08-2022 Coding Summary. CD:[id number] Gh 0bWw+PGhlYWQ+YS2SMRSrE 40qzWCwxA0VU2jINY4FRHZ AXPNPCJ9UCQ6ojBG1IUkmJ 2VybiAv YvhzdSIgGQ90DDx9EOE0hX qlCBhufG1hkPRcZ3s5RwMi EB38fX13DLkxXYSvVtL2Rs ZpbjsgbWFy R1aeArEkpYSjIqu+PHRhYm xlIHdpZHRoPScxMDAlJyBz jQbgAV0nAo7vGDThXYTlmE xhcHNlOiBj t1cfEBTkDGyxRF8smJzmA6 CywLJ8VHBqi6x1Fr43cKU+ MVPmJTB8jXmlMBgye900Im Bkz8xtQZV1 fSGcEXynPDC7D76zq6B5JW MkTLPcLQF6xTC6kR6azYyw oihsJ7ZirFHhSmV8LDG2wM FhmG1svPue jbhcgI8xRsu+Q62SID8ZBL HOJE2WWin1Y6AzXxnxnBB+ ZG59RHPzAF02oAVzlIAxy3 gcfDd0ArCa HNGrLZX3xCsdUCrct4EgIB XaH15ujJRkr6J7CDZgwYdg vPVqBbBkrUN8yL4mDDmnsn odp0mayshv Heaqx7ojgp12iS76Y23rKJ xaBEPvXXV7ZELeHNEdeKmk hy2iqE1nVg6+FLkfk9djb0 pulYd5UqKj KJDcojZqzMcjIWB2r7SrJq 11K5GkbJwca0FpBrf0jt80 dOYwt4Y0hGZ7PGkjRXDkqY 2bMZoyFlB3 NDVhFzGrcQ08fKDhMZulFx 0bgBfgwMywRB1qMKHmtkou SHFdxO2hLJGtcLMdiJtpTQ 4wNTBpbjtm f515KtAwHUT7SHLtuBGbK3 ZruW5nZuPtNWRpXLUmP0Rz wXRoLZzqD443UAesMoJ5FE IkbvOuJ2Br GYDppSctZqK2s1A1Sh7Qu9 JgusxlVBJ3GIfrGHOaPqM5 XeKnEvY0Q3CbIxy8UIMjmY osBO4uU9Cr LTCfkhqvetbuaVR0QMExHD PkeP70kMNzOGjqQg6au9C6 m363KZEeZWJtvD25Sx9erS ogMTBwdCBU eK9enbgqc6zweizoDlAcMD GeNHb4AVo1ZJQbzYboIpFp CWE7KcO1TJB0xCMvjV3udT anicrmfX2p Oyc+Z84brE0pDYZ0DLP4zu zpRHDjacBvII76RN53Z8Dq PjwvdGFibGU+PGRpdiBzdH svZM6kBkWb l3anr7RwPUgcO6VzMQRcRL giCzt7ZKDdSJT1hTI9oX8i EGUrJLrqu4Z0vFN8V5Kpau Eemm4ko1mt PRLgDZlxN65xeMUnx1Q3NM JutEO8EGEboClqRbBzaQ87 Oyc+AQNgqGpns0IcCugpx4 neq5jtxXl2 JiXhTDMnsuNwsKvzGVL7m6 HkEn95K51lYAunYEPbCIZg FYDxCGWnzYurvf0qrZ6dBp 8+PGNvbCB3 yZH1gQ1vWKVbPyI9BEpgT1 00OoOnyUAxBfolj1psr0fr bUr5SaHkDURtecNkmSfwIK F2s0WjOs24 P74dTOzfFKNkCNDfHNPpCT TefSchzg4djX5dLh0+PC9j t2rcfh78vT25gTI+PHRkIH T1lZxvGLwj EPDiiA3xHJmkLmU7OHMmIi VfrB43fMIcPOlvIk1feSbd cEebZS3gTADspqacm847Bq Dwx9wfHUAt mOFiRHtsYSZ7K37cb0N4LR BfZTUkRWT4sJS2vK8rfDcw bjogbGVmdDsgdmVydGljYW uuWXntW947 IHRvcDsnPlBhdGllbnQgTm NaMMt9M1UgFxb7DKOmjWym MQ9tmWXlDTakYf4yvPqfrF fxFP4fFDTp mlmrq227EcPov2coEEEcrC MvDByrUPR1E82pu5H9UNOv LRMzWUP3kVS5pC2gsWpren ogbGVmdDsg zrQnyQogDIkaIDwwB544BO RvcDsnPkJpcnRoIERhdGU6 NB95XF25vDXvf8V6kSO3M5 BhZGRpbmct qllieHG6VLHqBKYdmR03Zt 2iaXadCl8qKLFbHJM0NRGe aEVeV1IgyN5dUvLwZSOrGT XgN9QsiEXf YNsiM154RSqtHeM5WYXhli RvS6QzIKItrPygHlO9x6M0 Cn0GS6U4FO18OQ68kCFri7 U7bMR8G7Ki WLWcydohtmtznAV3NCSeFE DpxN64Hk5baJadIb5sEBBy TVW5GBXdvCAaP9KpvS7dEg AjMDAwMDAw Y6LotVCpKHzxC643QZbtDg S0DPAarlNxQ4FnLYHbcYoc FqE8o9C3Oy9KPXg4RA00RG 93qOTfn0D0 oKJ9E7FvZXStmpwzxwussH C2CRKeMINcrU11Pl4ucBpv Ci2nIHVuGDG7ARMkyXRpF5 MjhE3qEjGf ZQNwUFBvN5IpnBJpLDpiJ9 72HOneKjZ0HQPudqEvG9Ol ZXGmbGubPaH7g2S6Xu3BAS CtQZ57NUN4 nFR3FU46VL64T9ShOpuqvZ FibGU+PHRhYmxlIHdpZHRo VDljQUJiCdEbwRjxVY4yCq 9yZGVyLWNv oRvhvENnGyCzx5yeWUHwIW hwTZ1hwIcwN6MaxYW2NKCc g9l4Tq81N55kY8AccZS+PG FhxJA4aVR8 mH6aMhSjZzG8HBvxA415Fe IflBUsHgcxz9bgl1ywsSh5 LoM9UPAnxzSiySxpEWC5e0 KoBu25G77r IHdpZHRoPSIxNSUiIHZhbG syzn8bcR8tTw5+PGNvbCB3 ePE7bM7eSpSzIxF4PQzfX2 49InRvcCIv Ohrcv6mso8vdfGv4UgGsSV FgyaSujSlxXJW4u1VjAh63 F3HqkEave3QnFny4bd07vR Muq8K6aRA8 P3QaMCQntagrbKJbaYumMN 3tUHUwfphvDBJemY0bETRt E2g8IjUwExG8KIlvL7Qwpn V7YHLqlWFs EYmrQJL9F76qa6F6ICFpLC UaCZC1hTQ2uS9yuBpvwxhl bGVmdDsgdmVydGljYWwtYW stN259KWXy gPinQAUfzZ4rYMYcoGRmdF gkLD9aUGNsyinyXzeXNZ2H DIOKXZQKGI5GFqYQMN12MA 09bEPsp7M1 lUF8D8AzZRJvwdajgjtybE U4IRGqAILtrY19oVSrLVqm Fx8ry6C3x992XVYfOIEuvN 04Ol0dmEgf QWDwoXWZdQ8wovmmn8ruxn qsDzFgDIYxHRa2PLb9GEXm oCviOvFvPHF7StL3XQD1dB JxcK8muSio qoaqtY2cRjk+MDgvMTUvMT n3EDttsRV+HNRwNBP2sHnw SZjuBDYkdY8oLRWgR1v9Xr HyBaA4QUnj H9EbPHZqponzYq77gY3tAy KjLkX4NBewY3SkdnX1DQDh nQLeCCgpLHA7L99gs7F2IU MwMDAwMDA7 qTF7eG7smEvzvxxnbVIgqW iiucRsfSqjEKfzLUxyZ531 IHRvcDsnPjcxIFllYXJzPC 20DS77yLBd v8G4kTF8K1AbRMMluiyqwh uatRC2BCRoHDCnyW81qGRc PUitGt7qi2F4k008PBRqQV BdyL34Bi0v sYgwORImfVXZnX0dmjsgr0 bhjfmjNlTuELKhXWn2PKy4 PACvxZzqKiCaDIK8YvX1UB F1xSTfzB8p tMijbtqtrJ3yRhk+TWFsZT wvdGQ+ZBMuFJM1lEyuLJcj MPFvoV4kYXLlH6k1CwIrPy I5MWfoT8Sc ZUOgueupRr58nT6cMsBmLc C5AKszZ8QxxfK2ZIKqlPIv JNdxOBQ0A59ah5F4RLWoYV KcROL0kFZ7 bA6xoIqdpkisdOYvjSfexs YkxOlhDMlwNRobD975TVNp oMqePu11gWVlcWttcoI1N1 RkPjwvdHI+ YS13HEYtPQ20hBVxmCOtp8 ctvOg9WvKjPBXyWGK8tIpq KUuyp9DgYJCiV34qwLZww8 I3VDTyqEph hNOgDtAngEG3eX3sLWywbp kon7khrwvxVwjlf4rhux14 aU49M14hWSwhBTWlINMbYB UiIHZhbGln ay7kmM4uJu3+AYEhvBQ4qI O7kJ8pLwZoAvL9VNlrR277 TdOzjDGeVskoa4ttb8nbpJ z9RxQqNTMo mnHmsJpgQBY9l4PuOs01Z0 9sIHdpZHRoPSIyMCUiIHZh fOavzc2zvA4sYd1+PC9jb2 ucjn10rG34 dHI+GCZgIIQ1aSdiHEhzJK OfbQ9tGZtgViM0TNWfPhPn fP69lJUbBUxiOh0bgBmieP ziWH3qAWFq klqqm788VjJrk9zzQCBreT QnXIbmBEZ7Z63vx0X6HIHi GJGpXIL0uJD1jS1mlBiukd ogbGVmdDsg vaOaeWqjLVryACtrV117DB KbvKazHmJwfJPlJ2bfbsMC KL1fOfrlpNW+CENpUQZ1tM xlPSdwYWRk xU7yLDRzF7o4EjNaBzZ0WE agG5IagvK5WRZfqUVpNQUn pTZPpX7jxqint2cgmnmoEi AwMDAwMDt0 FGs1SGTzdXzgTtXzNLZ9Tb D9MGV9mNBfnB2mdWmfkbmu kL5lWez+RklOOjwvdGQ+PH YjKFO4wKyo TKuwTDCwzO7bPQCdQ2q5Th GtPgC8WNzdA7CedsS9SYXb aAAuUAFjaTAFtC9eucuje1 xvcjogIzAw ALSuEGc4YYn1GUIxeNjvXv TdTNA0BsJ2EYM3cSFreP6h nYrqdiikzM1gAsi+TVJOOj wvdGQ+PHRk SMU0mQepMTsqKBDggO9jRG SiK6r1GhPtBuJ5FRsdX7Mg muX1WMJjsGXhSNDorXCFuJ 6cbgaeg1vh hrjtMeIuXAQdQOf2HAk3QL YkmChiBvHcAQX9OeY9FAE9 yCLihL7cbRhrsiidjZ2dZc c+FWI3RQP6 ZE11LK00W8IkPrjecHShxB U+PHRhYmxlIHdpZHRoPScx JQYcKiHmcAhhYQ4oWw5dPF VyLWNvbGxh cHNl (more content not included)... Normal [facility] Consent for Procedure/Surger yon 07-08-2022 Consent for Procedure/Surgery [id number]. 00CD:127 Normal [facility] IntraOperative Documentson 0 07-08-2022 IntraOperative Documents [id number]. 00CD:127 Normal [facility] Consent for Treatmenton 06-21 Consent for Treatment [id number] 0CD:127 Normal [facility] Main OR Intraoperative Recor don 07-07-2022 Main OR Intraoperative Record IntraOp Document Type FTURO Summary Primary Physician: Lionel CARRINGTON MD Finalized Date/Time: 07/07/22 13:40:45 Pt. Name: EMILYMARY/Sex: 1950 Male Med Rec #: [id number] Physician: Lionel CARRINGTON MD Financial #: [id number] Pt. Type: O Room/Bed: / Admit/Disch: 07/07/22 10:08:13 - Institution: Case Times FTURO Entry 1 Patient Times In Room 07/07/22 10:38:00 Out Room 07/07/22 10:52:00 Procedure Times Start 07/07/22 10:41:00 Stop 07/07/22 10:47:00 Anesthesia Times Last Modified By: Edgard ZELAYA, Cheryl GALLARDO 07/07/22 10:47:02 Case Attendance FTURO Entry 1 Entry 2 Entry 3 Case Attendee DEVONTE NOBLELionel RN, CNOR, Eulalia GROSS, Zora Luna Role Performed Surgeon - Primary Buffing Wheel Former Machine - Primary Scrub - Primary Time In 07/07/22 10:38:00 07/07/22 10:38:00 07/07/22 10:38:00 Time Out 07/07/22 10:52:00 07/07/22 10:52:00 07/07/22 10:52:00 Procedure CYSTOSCOPY LOCAL(.) CYSTOSCOPY LOCAL(.) CYSTOSCOPY LOCAL(.) Comments Last Modified By: Edgard RN, CNOR, Edgard RN, CNOR, Edgard ZELAYA, EDITHOR, Cheryl 07/07/22 Cheryl 07/07/22 Cheryl 07/07/22 10:47:04 10:47:04 10:47:04 Surgical Procedures FTURO Entry 1 Procedure Description Procedure CYSTOSCOPY LOCAL Modifiers . Surgeon Description CYSTOSCOPY Primary Procedure Yes Primary Surgeon Loinel CARRINGTON MD Start 07/07/22 10:41:00 Stop 07/07/22 [...] CARRINGTON MD, Verified (If Participants Edgard ZELAYA, PAULINA, Applicable) Eulalia Luna CST, Zora Baxter Time Out Complete 07/07/22 10:39:00 Allergies Reviewed? [...] PAULINA Rene RN, Ruthann 07/07/22 13:40 Normal [facility] Main OR Preoperative Recordo n 07-07-2022 Main OR Preoperative Record Holding Area Document Type FTURO Summary Primary Physician: Lionel CARRINGTON MD Finalized Date/Time: 07/07/22 13:40:51 Pt. Name: MARY DIAZ/Sex: 1950 Male Med Rec #: [id number] Physician: Lionel CARRINGTON MD Financial #: [id number] Pt. Type: O Room/Bed: / Admit/Disch: 07/07/22 [...] No Pain Comment: na Skin Integrity Intact, [place], Warm, & Dry Vitals - EU Blood [...] PAULINA Rene RN, Ruthann 07/07/22 13:40 Normal [facility] Operative Reporton Operative Report Patient: [...] then a repeat cystoscopy in September. Normal [facility] Comment on above: Result Comment: Elec tronically Signed By: DEVONTE NOBLE, Lionel Gama.tacos\Date and Time Signed: 07/07/22 10:51 EST [employer]ro[employer] FISH (fl3ur)on 0 07-07-2022 UV Method of Extraction Bladder Wash Normal [facility] Comment on above: Performed By: #### 1 [id number] #### [facility] Laboratory [address] [place] [address] UV Number of Jars 1 Invalid Interpretation Code [facility] Comment on above: Performed By: #### 1 [id number] #### [facility] [address] [place] [address] UV Specimen Urine Normal [facility] Comment on above: Performed By: #### 1 [id number] #### [facility] [address] [place] [address] UV Type of Service Technical Only Normal [facility] Comment on above: Performed By: #### 1 [id number] #### [facility] [address] [place] [address] Retail - Clinical Noteon Retail - Clinical Note [id number] 0CD:127 Normal [facility] XR KNEE RT 4V or [...] DEBORAH ZARAGOZA Date: 2022-06-30 17:38 Normal [facility] XR RIBS RT PA Fab 2 XR [...] SOCORRO SERRANO Date: 2022-05-25 14:51 Normal [facility] XR RIBS RT PA Fab 2 XR [...] atelectasis and small pleural effusion Normal [facility] CT CHEST WO CONon 04-18-2022 CT CHEST [...] likely, however correlate clinically. Electronically authenticated by: SOCRORO BANSAL Date: 2022-04-18 16:17 Normal [facility] CULTURE URINEon 03-12-2022 CULTURE URINE Culture Observations : NO GROWTH. Normal [facility] Comment on above: Performed By: #### S PUTGS #### [facility] [address] [place] [address] Dr. Johnna Li 02-17-2022 L -- ---- Specimen: [id number] Received: 02/17/22 Status: ZACKERY Nails Num: [id number] Spec Type: Surgical Subm Dr: Lionel Carrington MD Tissues: A Urinary Bladder - biopsy (BLADDER TUMOR) Procedures: HE Stain/2, Gross/Micro L4, IHC First AB, IHC Add AB ---- Age/ Patient Sex Location Account Attending Physician ---- Mary Diaz 72/M DC [id number] Lionel Carrington MD ---- SPEC NUM: [id number] RECD: 02/17/22 STATUS: ZACKERY NAILS NUM: [id number] JOE: 02/17/22- DR: Lionel Carrington MD ENTERED: 02/17/[address]: SPEC TYPE: Surgical DEPT: S ORDERED: HE Stain/2, Gross/Micro L4, IHC First AB, IHC Add AB ORDERED: HE Stain/2, Gross/Micro L4, IHC First AB, IHC Add AB Supplemental Report Addendum 1 Entered: 02/27/22-1037 This case was sent to [facility] with their interpretation as follows: FINAL DIAGNOSIS Urinary bladder, transurethral resection - 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 Please see [facility] case ( [id number] ) for further details Addendum Signed (signature on file) Sanjiv Correa MD 02/27/22 1037 ---- ---- Specimen: [id number] Received: 02/17/22-7280 Status: ZACKERY Nails Num: [id number] Spec Type: Surgical Subm Dr: Lionel Carrington MD Tissues: A Urinary Bladder - biopsy (BLADDER TUMOR) Procedures: HE Stain/2, Gross/Micro L4, IHC First AB, IHC Add AB ---- Patient: Mary Diaz [id number] (Continued) ---- Specimen: [id number] Received: 02/17/22 (Continued) Signed (signature on file) Domi Florez MD 02/18/221899 ---- Specimen: [id number] Received: 02/17/22 Status: ZACKERY Jaqui Num: [id number] Spec Type: Surgical Subm Dr: Lionel Carrington MD Tissues: A Urinary Bladder - biopsy (BLADDER TUMOR) Procedures: HE Stain/2, Gross/Micro L4, IHC First AB, IHC Add AB ---- Patient: Mary Diaz [id number] (Continued) ---- Specimen: [id number] Received: 02/17/22-3363 (Continued) Pathological Diagnosis Urinary bladder, transurethral resection: - Urothelial proliferation with atypia in a poorly oriented specimen with cautery and crushed artifacts - Detrusor muscle/muscularis propria not present NOTE: This case will be sent to [facility] for consultation and a supplemental [...] P53 shows wild type pattern of expression. 81171, 13200, 64298 The use of one or more reagents in the above tests is regulated as an analyte specific reagent (ASR). The performance characteristics were determined by the [facility] of [facility]. Immunohistochemistry assays have not been validated on decalcified tissue. Results should be interpreted with caution given the possibility of false negative results on decalcified specimens. They have not been cleared by the [place] Food and Drug Administration. The FDA has determined that such clearance or approval is not necessary. (more content not included)... Normal [facility] COVID[facility] SARS-CoV-2 (COVID-19) RNA REX+probe Ql (Unsp spec) Negative Normal Negative [facility] Comment on above: Order Comment: Healt hcare Worker?: N Result Comment: Testing for SARS-CoV-2 by RT-PCR This test was developed and its performance characteristics determined by [employer] ([employer]) and validated at the [facility]. This test has not been FDA [...] is terminated or revoked sooner. PERFORMED BY: [place] [address] PATHOLOGIST JEWELRY BENCH MOLDER DOMI FLOREZ M.D. Performed By: #### C OVID 19 [facility] #### [address] COVID-19 Positive/NegativeOr dered By: Lionel Carrington on 02-13-2022 SARS-CoV-2 (COVID-19) N gene REX+probe Ql (Resp) Negative Negative [facility] Comment on above: Testing for SARS-CoV -2 by RT-PCR This test was developed and its performance characteristics determined by [employer] and validated at the [facility]. This test has not been FDA [...] aPTT Coag (PPP) [Time] 34.8 s 25.1-36.5 [facility] Basic Metabolic Panelon 01-19 Calcium [Mass/Vol] 9.7 mg/dL Normal 8.2-10.2 [facility] Comment on above: Result Comment: PERF ORMED BY: [place] [address] PATHOLOGIST JEWELRY BENCH MOLDER DOMI FLOREZ M.D. Performed By: #### B MP, PTT, PT, CBC #### [address] Chloride [Moles/Vol] 99 mmol/L Normal 95-114 [facility] Comment on above: Performed By: #### B MP, PTT, PT, CBC #### [facility] [address] CO2 [Moles/Vol] 26.2 mmol/L Normal 22.0-30.0 [facility] Comment on above: Performed By: #### B MP, PTT, PT, CBC #### [facility] [address] Creatinine [Mass/Vol] 1.21 mg/dL Normal 0.64-1.27 [facility] Comment on above: Performed By: #### B MP, PTT, PT, CBC #### [facility] [address] [place] [address] [place] Estimated GFR ( [place] > 60 Normal [facility] Comment on above: Result Comment: GFR estimated reference range: According to KDOQI guidelines, <60 ml/min/1.73m2 is sufficient to diagnose a patient with chronic kidney disease. Performed By: #### B MP, PTT, PT, CBC #### [facility] [address] Estimated GFR (Non- Am 59 Normal [facility] Comment on above: Performed By: #### B MP, PTT, PT, CBC #### [facility] [address] Glucose [Mass/Vol] 99 mg/dL Normal 70-100 [facility] Comment on above: Result Comment: [place] Glucose Reference Range is dependent on time and content of last meal. Glucose of more than 200 mg/dL in a nonstressed, ambulatory subject supports the diagnosis of Diabetes Mellitus. ADA recommended reference range Performed By: #### B MP, PTT, PT, CBC #### [facility] [address] Potassium [Moles/Vol] 4.4 mmol/L Normal 3.5-5.1 [facility] Comment on above: Performed By: #### B MP, PTT, PT, CBC #### [facility] [address] Sodium [Moles/Vol] 135 mmol/L Low 136-146 [facility] Comment on above: Performed By: #### B MP, PTT, PT, CBC #### [facility] [address] Urea nitrogen [Mass/Vol] 20 mg/dL Normal 9-23 [facility] Comment on above: Performed By: #### B MP, PTT, PT, CBC #### [facility] [address] Basophils Auto (Bld) [#/Vol] Ordered By: Lionel Carrington on 02-06-2022 Basophils (Bld) [#/Vol] 0.0 10*3/uL 0.0-0.2 [facility] Basophils/100 WBC Auto (Bld) Ordered By: Lionel Carrington on 02-06-2022 Basophils/100 WBC (Bld) 0.8 % . [facility] Blood hemoglobin measurement (mass/volume)Ordered By: Lionel Carrington on 02-06-2022 Hemoglobin (Bld) [Mass/Vol] 13.2 g/dL 13.0-17.0 [facility] Blood leukocytes automated c ount (number/volume)Ordered By: Lionel Carrington on 02-06-2022 WBC (Bld) [#/Vol] 5.7 10*3/uL 4.5-11.0 [facility] Complete Blood Count Auto Di ffon 02-06-2022 Basophils (Bld) [#/Vol] 0.0 10*3/uL Normal 0.0-0.2 [facility] Comment on above: Result Comment: PERF ORMED BY: [place] [address] PATHOLOGIST JEWELRY BENCH MOLDER DOMI FLOREZ M.D. Performed By: #### B MP, PTT, PT, CBC #### [address] Basophils/100 WBC (Bld) 0.8 % Normal . [facility] Comment on above: Performed By: #### B MP, PTT, PT, CBC #### [facility] [address] [place] [address] Eosinophils (Bld) [#/Vol] 0.1 10*3/uL Normal 0.0-0.45 [facility] Comment on above: Performed By: #### B MP, PTT, PT, CBC #### [address] Eosinophils/100 WBC (Bld) 1.7 % Normal . [facility] Comment on above: Performed By: #### B MP, PTT, PT, CBC #### [facility] [address] [place] [address] Erythrocyte distribution width (RBC) [Ratio] 14.2 % Normal 12.0-14.8 [facility] Comment on above: Performed By: #### B MP, PTT, PT, CBC #### [facility] [address] [place] [address] Hematocrit (Bld) [Volume fraction] 40.8 % Normal 38.8-50.0 [facility] Comment on above: Performed By: #### B MP, PTT, PT, CBC #### [facility] [address] [place] [address] Hemoglobin (Bld) [Mass/Vol] 13.2 g/dL Normal 13.0-17.0 [facility] Comment on above: Performed By: #### B MP, PTT, PT, CBC #### [address] Lymphocytes (Bld) [#/Vol] 1.6 10*3/uL Normal 1.00-4.8 [facility] Comment on above: Performed By: #### B MP, PTT, PT, CBC #### [address] Lymphocytes/100 WBC (Bld) 27.4 % Normal . [facility] Comment on above: Performed By: #### B MP, PTT, PT, CBC #### [address] MCH (RBC) [Entitic mass] 29.7 pg Normal 27.5-35.2 [facility] Comment on above: Performed By: #### B MP, PTT, PT, CBC #### [address] MCV (RBC) [Entitic vol] 91.6 fL Normal 83.5-101 [facility] Comment on above: Performed By: #### B MP, PTT, PT, CBC #### [address] Mean Corpuscular HGB Conc 32.4 g/dL Low 32.5-35.6 [facility] Comment on above: Performed By: #### B MP, PTT, PT, CBC #### [address] Monocytes (Bld) [#/Vol] 0.5 10*3/uL Normal 0.0-0.8 [facility] Comment on above: Performed By: #### B MP, PTT, PT, CBC #### [address] Monocytes/100 WBC (Bld) 8.7 % Normal . [facility] Comment on above: Performed By: #### B MP, PTT, PT, CBC #### [place] [address] [place] Neutrophils (Bld) [#/Vol] 3.5 10*3/uL Normal 1.8-7.7 [facility] Comment on above: Performed By: #### B MP, PTT, PT, CBC #### [address] Neutrophils/100 WBC (Bld) 61.4 % Normal . [facility] Comment on above: Performed By: #### B MP, PTT, PT, CBC #### [address] Nucleated RBC/100 WBC (Bld) [Ratio] 0.1 % Normal 0-0.5 [facility] Comment on above: Performed By: #### B MP, PTT, PT, CBC #### [address] Platelet mean volume (Bld) [Entitic vol] 8.4 fL Normal 6.6-10.1 [facility] Comment on above: Performed By: #### B MP, PTT, PT, CBC #### [place] [address] [place] Platelets (Bld) [#/Vol] 248 10*3/uL Normal 150-450 [facility] Comment on above: Performed By: #### B MP, PTT, PT, CBC #### [place] [address] [place] RBC (Bld) [#/Vol] 4.45 10*6/uL Normal 3.90-5.[address] [facility] Comment on above: Performed By: #### B MP, PTT, PT, CBC #### [place] [address] [place] WBC (Bld) [#/Vol] 5.7 10*3/uL Normal 4.5-11.0 [facility] Comment on above: Performed By: #### B MP, PTT, PT, CBC #### [place] [id number] [place] Creatinine and Glomerular fi ltration rate.predicted panel (S/P/Bld)Ordered By: Lionel Carrington on 02-06-2022 Creatinine [Mass/Vol] 1.21 mg/dL 0.64-1.27 [facility] Eosinophils Auto (Bld) [#/Vo l]Ordered By: Lionel Carrington on 02-06-2022 Eosinophils (Bld) [#/Vol] 0.1 10*3/uL 0.0-0.45 [facility] Eosinophils/100 WBC Auto (Bl d)Ordered By: Lionel Carrington on 02-06-2022 Eosinophils/100 WBC (Bld) 1.7 % . [facility] Erythrocyte distribution wid th Auto (RBC) [Ratio]Ordered By: Lionel Carrington on 02-06-2022 Erythrocyte distribution width (RBC) [Ratio] 14.2 % 12.0-14.8 [facility] Estimated glomerular filtrat ion rate (GFR) non- AmericanOrdered By: Lionel Carrington on 02-06-2022 GFR/1.73 sq M.predicted among non-blacks MDRD (S/P/Bld) [Vol rate/Area] 59 mL/Min [facility] Hematocrit Auto (Bld) [Volum e fraction]Ordered By: Lionel Carrington on 02-06-2022 Hematocrit (Bld) [Volume fraction] 40.8 % 38.8-50.0 [facility] Laboratory - CoagulationOrde red By: Lionel Carrington on 02-06-2022 PT Coag (PPP) [Time] 11.0 s 9.0-12.9 [facility] Laboratory - Hematology and Cell countsOrdered By: Lionel Carrington on 02-06-2022 Nucleated RBC/100 WBC (Bld) [Ratio] 0.1 % 0-0.5 [facility] Lymphocytes Auto (Bld) [#/Vo l]Ordered By: Lionel Carrington on 02-06-2022 Lymphocytes (Bld) [#/Vol] 1.6 10*3/uL 1.00-4.8 [facility] Lymphocytes/100 WBC Auto (Bl d)Ordered By: Lionel Carrington on 02-06-2022 Lymphocytes/100 WBC (Bld) 27.4 % . [facility] MCH Auto (RBC) [Entitic mass ]Ordered By: Lionel Carrington on 02-06-2022 MCH (RBC) [Entitic mass] 29.7 pg 27.5-35.2 [facility] MCHC Auto (RBC) [Mass/Vol]Or dered By: Lionel Carrington on 02-06-2022 MCHC (RBC) [Mass/Vol] 32.4 g/dL 32.5-35.6 [facility] MCV Auto (RBC) [Entitic vol] Ordered By: Lionel Carrington on 02-06-2022 MCV (RBC) [Entitic vol] 91.6 fL 83.5-101 [facility] Monocytes Auto (Bld) [#/Vol] Ordered By: Lionel Carrington on 02-06-2022 Monocytes (Bld) [#/Vol] 0.5 10*3/uL 0.0-0.8 [facility] Monocytes/100 WBC Auto (Bld) Ordered By: Lionel Carrington on 02-06-2022 Monocytes/100 WBC (Bld) 8.7 % . [facility] Neutrophils Auto (Bld) [#/Vo l]Ordered By: Lionel Carrington on 02-06-2022 Neutrophils (Bld) [#/Vol] 3.5 10*3/uL 1.8-7.7 [facility] Neutrophils/100 WBC Auto (Bl d)Ordered By: Lionel Carrington on 02-06-2022 Neutrophils/100 WBC (Bld) 61.4 % . [facility] No Panel InformationOrdered By: Lionel Carrington on 02-06-2022 Estimated GFR () > 60 mL/Min [facility] Comment on above: GFR estimated refere nce range: According to KDOQI guidelines, <60 ml/min/1.73m2 is sufficient to diagnose a patient with chronic kidney disease. Pharmacy Creatinine Clearance (Chem N/A [facility] Partial Thromboplastin Timeo n 02-06-2022 aPTT Coag (Bld) [Time] 34.8 s Normal 25.1-36.5 [facility] Comment on above: Result Comment: PERF ORMED BY: [facility] [address] [place] [address] PATHOLOGIST JEWELRY BENCH MOLDER DOMI FLOREZ M.D. Performed By: #### B MP, PTT, PT, CBC #### [facility] [address] Platelet mean volume Auto (B ld) [Entitic vol]Ordered By: Lionel Carrington on 02-06-2022 Platelet mean volume (Bld) [Entitic vol] 8.4 fL 6.6-10.1 [facility] Platelet poor plasma interna tional normalized ratio (INR) by coagulation assay (relatOrdered By: Lionel Carrington on 02-06-2022 INR Coag (PPP) [Relative time] 1.0 {INR} [facility] Comment on above: INR Therapeutic Rang [...] 02-06-2022 Platelets (Bld) [#/Vol] 248 10*3/uL 150-450 [facility] Prothrombin Time INRon 02-06 INR Coag (PPP) [Relative time] 1.0 {INR} Normal [facility] Comment on above: Result Comment: INR [...] #### B MP, PTT, PT, CBC #### [facility] [address] PT Coag (PPP) [Time] 11.0 s Normal 9.0-12.9 [facility] Comment on above: Performed By: #### B MP, PTT, PT, CBC #### [facility] [address] RBC Auto (Bld) [#/Vol]Ordere d By: Lionel Carrington on 02-06-2022 RBC (Bld) [#/Vol] 4.45 10*6/uL 3.90-5.[address] [facility] Serum or plasma calcium eliezer urement (mass/volume)Ordered By: Lionel aCrrington on 02-06-2022 Calcium [Mass/Vol] 9.7 mg/dL 8.2-10.2 [facility] Serum or plasma chloride sammy surement (moles/volume)Ordered By: Lionel Carrington on 02-06-2022 Chloride [Moles/Vol] 99 mmol/L 95-114 [facility] Serum or plasma glucose eliezer urement (mass/volume)Ordered By: Lionel Carringotn on 02-06-2022 Glucose [Mass/Vol] 99 mg/dL 70-100 [facility] Comment on above: ADA recommended refe rence range Random Glucose Reference Range is dependent on time and content of last meal. Glucose of more than 200 mg/dL in a nonstressed, ambulatory subject supports the diagnosis of Diabetes Mellitus. Serum or plasma potassium me asurement (moles/volume)Ordered By: Lionel Carrington on 02-06-2022 Potassium [Moles/Vol] 4.4 mmol/L 3.5-5.1 [facility] Serum or plasma sodium measu rement (moles/volume)Ordered By: Lionel Carrington on 02-06-2022 Sodium [Moles/Vol] 135 mmol/L 136-146 [facility] Serum or plasma total carbon dioxide measurement (moles/volume)Ordered By: Lionel Carrington on 02-06-2022 CO2 [Moles/Vol] 26.2 mmol/L 22.0-30.0 [facility] Serum or plasma urea nitroge n measurement (mass/volume)Ordered By: Lionel Carrington on 02-06-2022 Urea nitrogen [Mass/Vol] 20 mg/dL 9-23 [facility] COVID-19 Positive/NegativeOr dered By: Lionel Carrington on 10-27-2021 SARS-CoV-2 (COVID-19) N gene REX+probe Ql (Resp) Negative Negative [facility] Comment on above: Testing for SARS-CoV -2 by RT-PCR This test was developed and its performance characteristics determined by [employer] and validated at the [facility]. This test has not been FDA [...] aPTT Coag (PPP) [Time] 36.2 s 25.1-36.5 [place] [facility] [facility] Auto (Bld) [#/Vol] Ordered By: Lionel Carrington on 10-17-2021 Basophils (Bld) [#/Vol] 0.0 10*3/uL 0.0-0.2 [facility] Basophils/100 WBC Auto (Bld) Ordered By: Lionel Carrington on 10-17-2021 Basophils/100 WBC (Bld) 0.6 % [facility] Blood hemoglobin measurement (mass/volume)Ordered By: Lionel Carrington on 10-17-2021 Hemoglobin (Bld) [Mass/Vol] 13.6 g/dL 13.0-17.0 [facility] Blood leukocytes automated c ount (number/volume)Ordered By: Lionel Carrington on 10-17-2021 WBC (Bld) [#/Vol] 5.9 10*3/uL 4.5-11.0 [facility] Creatinine and Glomerular fi ltration rate.predicted panel (S/P/Bld)Ordered By: Lionel Carrington on 10-17-2021 Creatinine [Mass/Vol] 0.96 mg/dL 0.64-1.27 [facility] Eosinophils Auto (Bld) [#/Vo l]Ordered By: Lionel Carrington on 10-17-2021 Eosinophils (Bld) [#/Vol] 0.1 10*3/uL 0.0-0.45 [facility] Eosinophils/100 WBC Auto (Bl d)Ordered By: Lionel Carrington on 10-17-2021 Eosinophils/100 WBC (Bld) 2.0 % [facility] Erythrocyte distribution wid th Auto (RBC) [Ratio]Ordered By: Lionel Carrington on 10-17-2021 Erythrocyte distribution width (RBC) [Ratio] 14.5 % 12.0-14.8 [facility] Estimated glomerular filtrat ion rate (GFR) non- AmericanOrdered By: Lionel Carrington on 10-17-2021 GFR/1.73 sq M.predicted among non-blacks MDRD (S/P/Bld) [Vol rate/Area] > 60 mL/Min [facility] Hematocrit Auto (Bld) [Volum e fraction]Ordered By: Lionel Carrington on 10-17-2021 Hematocrit (Bld) [Volume fraction] 41.5 % 38.8-50.0 [facility] Laboratory - CoagulationOrde red By: Lionel Carrington on 10-17-2021 PT Coag (PPP) [Time] 11.0 s 9.0-12.9 [facility] Laboratory - Hematology and Cell countsOrdered By: Lionel Carrington on 10-17-2021 Nucleated RBC/100 WBC (Bld) [Ratio] 0.0 % 0-0.5 [facility] Lymphocytes Auto (Bld) [#/Vo l]Ordered By: Lionel Carrington on 10-17-2021 Lymphocytes (Bld) [#/Vol] 1.6 10*3/uL 1.00-4.8 [facility] Lymphocytes/100 WBC Auto (Bl d)Ordered By: Lionel Carrington on 10-17-2021 Lymphocytes/100 WBC (Bld) 26.8 % [facility] MCH Auto (RBC) [Entitic mass ]Ordered By: Lionel Carrington on 10-17-2021 MCH (RBC) [Entitic mass] 29.3 pg 27.5-35.2 [facility] MCHC Auto (RBC) [Mass/Vol]Or dered By: Lionel Carrington on 10-17-2021 MCHC (RBC) [Mass/Vol] 32.7 g/dL 32.5-35.6 [facility] MCV Auto (RBC) [Entitic vol] Ordered By: Lionel Carrington on 10-17-2021 MCV (RBC) [Entitic vol] 89.8 fL 83.5-101 [facility] Monocytes Auto (Bld) [#/Vol] Ordered By: Lionel Carrington on 10-17-2021 Monocytes (Bld) [#/Vol] 0.6 10*3/uL 0.0-0.8 [facility] Monocytes/100 WBC Auto (Bld) Ordered By: Lionel Carrington on 10-17-2021 Monocytes/100 WBC (Bld) 10.6 % [facility] Neutrophils Auto (Bld) [#/Vo l]Ordered By: Lionel Carrington on 10-17-2021 Neutrophils (Bld) [#/Vol] 3.5 10*3/uL 1.8-7.7 [facility] Neutrophils/100 WBC Auto (Bl d)Ordered By: Lionel Carrington on 10-17-2021 Neutrophils/100 WBC (Bld) 60.0 % [facility] No Panel InformationOrdered By: Lionel Carrington on 10-17-2021 Estimated GFR () > 60 mL/Min [facility] Comment on above: GFR estimated refere nce range: According to KDOQI guidelines, <60 ml/min/1.73m2 is sufficient to diagnose a patient with chronic kidney disease. Pharmacy Creatinine Clearance (Chem N/A [facility] Platelet mean volume Auto (B ld) [Entitic vol]Ordered By: Lionel Carrington on 10-17-2021 Platelet mean volume (Bld) [Entitic vol] 8.3 fL 6.6-10.1 [facility] Platelet poor plasma interna tional normalized ratio (INR) by coagulation assay (relatOrdered By: Lionel Carrington on 10-17-2021 INR Coag (PPP) [Relative time] 1.0 {INR} [facility] Comment on above: INR Therapeutic Rang [...] 10-17-2021 Platelets (Bld) [#/Vol] 249 10*3/uL 150-450 [facility] RBC Auto (Bld) [#/Vol]Ordere d By: Lionel Carrington on 10-17-2021 RBC (Bld) [#/Vol] 4.62 10*6/uL 3.90-5.[address] [facility] Serum or plasma calcium eliezer urement (mass/volume)Ordered By: Lionel Carrington on 10-17-2021 Calcium [Mass/Vol] 9.7 mg/dL 8.2-10.2 [facility] Serum or plasma chloride sammy surement (moles/volume)Ordered By: Lionel Carrington on 10-17-2021 Chloride [Moles/Vol] 101 mmol/L 95-114 [facility] Serum or plasma glucose eliezer urement (mass/volume)Ordered By: Lionel Carrington on 10-17-2021 Glucose [Mass/Vol] 87 mg/dL 70-100 [facility] Comment on above: ADA recommended refe rence range Random Glucose Reference Range is dependent on time and content of last meal. Glucose of more than 200 mg/dL in a nonstressed, ambulatory subject supports the diagnosis of Diabetes Mellitus. Serum or plasma potassium me asurement (moles/volume)Ordered By: Lionel Carrington on 10-17-2021 Potassium [Moles/Vol] 4.4 mmol/L 3.5-5.1 [facility] Serum or plasma sodium measu rement (moles/volume)Ordered By: Lionel Carrington on 10-17-2021 Sodium [Moles/Vol] 136 mmol/L 136-146 [facility] Serum or plasma total carbon dioxide measurement (moles/volume)Ordered By: Lionel Carrington on 10-17-2021 CO2 [Moles/Vol] 25.6 mmol/L 22.0-30.0 [facility] Serum or plasma urea nitroge n measurement (mass/volume)Ordered By: Lionel Carrington on 10-17-2021 Urea nitrogen [Mass/Vol] 18 mg/dL 03-13 [facility] Vital Signs Date Time Vital Sign Value Performing Clinician Facility 02-10-2023 14:16-0400 Blood Pressure Location [employer] [facility] [place] 02-10-2023 14:16-0400 Diastolic blood pressure 80 mm[Hg] [employer] [facility] 02-10-2023 14:16-0400 Heart rate 70 /min [employer] [facility] 02-10-2023 14:16-0400 Respiratory rate 16 /min [employer] [facility] 02-10-2023 14:16-0400 Systolic blood pressure 124 mm[Hg] [employer] [facility] 12-03-2022 10:20-0400 Body height 182.88 cm Zoran Chavez Other [facility] Other 12-03-2022 10:20-0400 Body mass index (BMI) [Ratio] 25.49 kg/m2 Zoran Chavez Other [facility] Other 12-03-2022 10:20-0400 Body weight 85.28 kg Zoran Chavez Other [facility] Other 10-22-2022 10:20-0400 Body height 182.88 cm Zoran Chavez Other [facility] Other 10-22-2022 10:20-0400 Body mass index (BMI) [Ratio] 25.63 kg/m2 Zoran Chavez Other [facility] Other 10-22-2022 10:20-0400 Body weight 85.73 kg Zoran Chavez Other [facility] Other 10-22-2022 10:20-0400 Diastolic blood pressure 80 mm[Hg] Zoran Chavez Other [facility] [employer] Other 10-22-2022 10:20-0400 Systolic blood pressure 110 mm[Hg] Zoran Chavez Other [facility] [employer] Other 02-24-2022 10:43-0400 Blood Pressure Location Lionel CARRINGTON [facility] 02-24-2022 10:43-0400 Diastolic blood pressure 80 mm[Hg] Lionel CARRINGTON [facility] 02-24-2022 10:43-0400 Heart rate 65 /min Lionel CARRINGTON [facility] 02-24-2022 10:43-0400 Respiratory rate 16 /min Lionel CARRINGTON [facility] 02-24-2022 10:43-0400 Systolic blood pressure 140 mm[Hg] Lionel CARRINGTON [facility] 02-17-2022 15:15-0400 Diastolic blood pressure 83 mm[Hg] MD Yolande Staley Work Phone: [facility] 02-17-2022 15:15-0400 Heart rate 58 /min MD Yolande Staley Work Phone: [facility] 02-17-2022 15:15-0400 Respiratory rate 16 /min MD Yolande Staley Work Phone: [facility] 02-17-2022 15:15-0400 SaO2% (BldA) [Mass fraction] 95 % MD Yolande Staley Work Phone: [facility] 02-17-2022 15:15-0400 Systolic blood pressure 166 mm[Hg] MD Yolande Staley Work Phone: [facility] 02-17-2022 14:30-0400 Body height 182.88 cm MD Yolande Staley Work Phone: [facility] 02-17-2022 14:30-0400 Body mass index (BMI) [Ratio] 26.2 kg/m2 MD Yolande Staley Work Phone: [facility] 02-17-2022 14:30-0400 Body weight 87.7 kg MD Yolande Staley Work Phone: [facility] 02-17-2022 14:17-0400 Body temperature 97.6 [degF] MD Yolande Staley Work Phone: [facility] 02-17-2022 13:52-0400 Inhaled oxygen flow rate 10 L/min MD Yolande Staley Work Phone: [facility] 10-17-2021 11:42-0400 Body height 180.34 cm MD Yolande Staley Work Phone: [facility] 10-17-2021 11:42-0400 Body mass index (BMI) [Ratio] 27 kg/m2 MD Yolande Staley Work Phone: [facility] 10-17-2021 11:42-0400 Body temperature 98.4 [degF] MD Yolande Staley Work Phone: [facility] 10-17-2021 11:42-0400 Body weight 88 kg MD Yolande Staley Work Phone: [facility] 10-17-2021 11:42-0400 Diastolic blood pressure 90 mm[Hg] MD Yolande Staley Work Phone: [facility] 10-17-2021 11:42-0400 Heart rate 64 /min MD Yolande Staley Work Phone: [facility] 10-17-2021 11:42-0400 SaO2% (BldA) [Mass fraction] 100 % MD Yolande Staley Work Phone: [facility] 10-17-2021 11:42-0400 Systolic blood pressure 172 mm[Hg] MD Yolande Staley Work Phone: [facility] Encounters Encounter Date Encounter Type Care Provider Facility Start: 07-26-2023 End: 07-27-2023 ambulatory Dereck Osman MD Facility: [facility] Start: 04-27-2023 End: 04-28-2023 ambulatory Lionel CARRINGTON Facility[facility] Start: 04-27-2023 End: 04-27-2023 Patient encounter procedure Lionel CARRINGTON [facility] Start: 03-15-2023 End: 03-16-2023 ambulatory Dereck Osman MD Facility:[facility] Start: 03-10-2023 End: 03-11-2023 ambulatory Qamar SMITH Facility:[id number] Start: 02-10-2023 End: 02-11-2023 ambulatory Qamar R LUIS Facility: [facility] Start: 02-10-2023 End: 02-10-2023 Patient encounter procedure Qamar BOWERSL [facility] [place] Start: 01-20-2023 End: 01-21-2023 ambulatory Lionel CARRINGTON Facility: [facility] Start: 01-14-2023 End: 01-15-2023 ambulatory Lionel CARRINGTON Facility:CD:[id number] Start: 01-05-2023 End: 01-06-2023 ambulatory Lionel CARRINGTON Facility:[facility] Start: 01-05-2023 End: 01-05-2023 Patient encounter procedure Lionel CARRINGTON [facility] Start: 01-01-2023 End: 01-01-2023 ambulatory Yolande Staley Facility:[facility] Start: 01-01-2023 End: 01-01-2023 ambulatory MD Yolande Staley Work Phone: [facility] Work Phone: Start: 01-01-2023 End: 01-01-2023 Patient encounter procedure MD Yolande Staley Work Phone: [facility] [place] Work Phone: Start: 12-28-2022 End: 12-29-2022 [facility] Start: 12-14-2022 End: 12-15-2022 ambulatory Dereck Osman MD Facility: [facility] Start: 12-03-2022 End: 12-03-2022 ambulatory Zoran Chavez Other [facility] Other Start: 12-03-2022 Office outpatient visit 15 minutes Zoran Chavez [facility] Start: 11-20-2022 End: 11-21-2022 ambulatory DERECK OSMAN Facility:[facility] Start: 10-28-2022 End: 10-29-[address] NELLY HERRERA Facility:[facility] Start: 10-27-2022 End: 11-18-[address] ZORAN CHAVEZ Facility:[facility] Start: 10-23-2022 End: 10-24-[address] ZORAN CHAVEZ Facility:[facility] Start: 10-22-2022 End: 10-22-2022 ambulatory Zoran Chavez Other [facility] Other Start: 10-22-2022 Office outpatient visit 15 minutes Zoran Chavez [facility] Start: 10-05-2022 End: 10-06-[address] YOLANDE STALEY . Facility:[facility] Start: 09-29-2022 End: 09-30-2022 ambulatory Lionel CARRINGTON Facility:[facility] Start: 09-24-2022 End: 09-25-[address] YOLANDE STALEY . Facility: Start: 09-21-2022 End: 09-22-[address] LIONEL CARRINGTON . Facility: Start: 09-21-2022 End: 09-22-2022 ambulatory Lionel CARRINGTON Facility:[facility] Start: 09-21-2022 End: 09-21-2022 Patient encounter procedure Lionel CARRINGTON [facility] Start: 08-19-2022 End: 08-20-[address] LIONEL CARRINGTON . Facility: Start: 08-17-2022 End: 08-18-2022 ambulatory Lionel CARRINGTON Facility:[facility] Start: 08-17-2022 End: 08-17-2022 Patient encounter procedure Lionel CARRINGTON [facility] Start: 08-04-2022 End: 08-05-[address] YOLANDE STALEY . Facility: Start: 07-28-2022 End: 07-29-[address] YOLANDE STALEY . Facility: Start: 07-23-2022 End: 07-23-[address] LIONEL CARRINGTON . Facility: Start: 07-20-2022 End: 07-21-2022 ambulatory Lionel CARRINGTON Facility:[facility] Start: 07-20-2022 End: 07-20-2022 Patient encounter procedure Lionel CARRINGTON [facility] Start: 07-07-2022 End: 07-08-2022 ambulatory Lionel CARRINGTON Facility:[facility] Start: 07-07-2022 End: 07-07-2022 Patient encounter procedure Lionel CARRINGTON [facility] Start: 06-30-2022 End: 07-01-[address] YOLANDE STALEY . Facility:[facility] Start: 06-04-2022 End: 06-04-[address] YOLANDE STALEY . Facility:[facility] Start: 05-25-2022 End: 05-26-[address] YOLANDE STALEY . Facility:[facility] Start: 05-18-2022 End: 05-18-2022 Patient encounter procedure Lionel CARRINGTON [facility] Start: 04-27-2022 End: 04-28-[address] YOLANDE STALEY . Facility:[facility] Start: 04-18-2022 End: 04-18-[address] FELICIA GALDAMEZ . Facility:[facility] Start: 04-15-2022 End: 04-15-2022 Patient encounter procedure Lionel CARRINGTON [facility] Start: 03-26-2022 End: 03-26-[address] LIONEL CARRINGTON . Facility:[facility] Start: 03-12-2022 End: 03-13-[address] YOLANDE STALEY . Facility:[facility] Start: 03-09-2022 End: 03-09-2022 Patient encounter procedure Lionel CARRINGTON [facility] Start: 02-27-2022 End: 02-27-2022 Lab Drop off Lionel CARRINGTON [facility] Start: 02-27-2022 End: 02-27-2022 Patient encounter procedure Lionel CARRINGTON [facility] Start: 02-24-2022 End: 02-24-2022 Patient encounter procedure Lionel CARRINGTON [facility] Start: 02-17-2022 End: 02-17-2022 ambulatory Lionel Carrington Facility:[facility] Start: 02-17-2022 End: 02-17-2022 Admission to same day surgery center MD [facility]ande Staley [facility] [place] [facility] [place] Start: 02-13-2022 End: 02-13-2022 ambulatory Lionel Carrington Facility:[facility] Start: 02-13-2022 End: 02-13-2022 Patient encounter procedure MD Yolande Staley Work Phone: [facility] Start: 02-06-2022 End: 02-06-2022 ambulatory Lionel Carrington Facility:[facility] Start: 02-06-2022 End: 02-06-2022 Patient encounter procedure MD Yolande Staley Work Phone: [facility] Start: 11-11-2021 End: 11-11-2021 Patient encounter procedure Lionel CARRINGTON [facility] Start: 11-05-2021 End: 11-05-2021 Patient encounter procedure Lionel CARRINGTON [facility] Start: 10-29-2021 End: 10-29-2021 Admission to same day surgery center MD [facility]olande Staley [facility] [place] [facility] [place] Start: 10-27-2021 End: 10-27-2021 Patient encounter procedure MD Yolande Staley Work Phone: [facility] Start: 10-17-2021 End: 10-17-2021 Patient encounter procedure MD Yolande Staley Work Phone: [facility] Procedures Date Procedure Procedure Detail Performing Clinician Start: 01-01-2023 MR lumbar spine wo con MD Yolande Staley Work Phone: Start: 09-21-[address] NELLY HERRERA Comment on above: Performed By: #### P SAD #### [facility] [address] [place] [address] Dr. Johnna Dixon Start: 02-17-2022 Transurethral resect [...] CARRINGTON Comment on above: had recently at [facility] Start: 05-21-2014 Colonoscopy Qamar DSOS Start: 06-21-2010 Complete repair of r otator cuff Lionel CARRINGTON Comment on above: right Start: 06-21-1998 Shoulder reconstruction Lionel CARRINGTON Comment on above: left possibly a scre w in there per pt Start: 06-21-1964 Appendectomy Lionel STERLING Arthroplasty of the ankle Jose Alfredo CARRINGTON Comment on above: 1990 Arthroscopy of knee Lionel CARRINGTON Klippel-Feil sequenc e (disorder) Lionel CARRINGTON Plan of Treatment Date Care Activity Detail Author Start: 10-04-2023 ambulatory Ambulatory Facility:[facility] Start: 02-17-2022 End: 02-17-2022 [facility] Work Phone: Start: 02-17-2022 Transurethral resect ion of bladder neoplasm OR Cysto/TURBT/Bladder Biopsy/Fulg (Not Applicable) [facility] Start: 02-17-2022 End: 02-17-2022 Admission to same day surgery center Departed Surgical Day Care [facility] [place] Start: 02-13-2022 End: 02-13-2022 Patient encounter procedure Departed Clinical [facility] Patient referral [facility] Work Phone: Immunizations Immunization Date Immunization Notes Care Provider [facility] 04-16-2022 SARS-CoV-2 (COVID-19 ) [id number] Qamar SMITH [facility] 03-27-2022 influenza virus vacc ine, unspecified formulation Qamar SMITH [facility] 05-06-2021 COVID-19 mRNA-1273 (Huma) MD Yolande Staley Work Phone: [facility] 09-19-2020 COVID-19 mRNA-1273 (Huma) MD Yolande Staley Work Phone: [facility] Comment on above: Result Comment: 2022: [id number] 08-22-2020 COVID-19 mRNA-1273 (Moderna) MD Yolande Staley Work Phone: [facility] Comment on above: Result Comment: 2022: [id number] 06-21-2020 SARS-CoV-2 (COVID-19 ) mRNA-1273 vaccine Lionel CARRINGTON [facility] 05-23-2020 influenza virus vacc ine, unspecified formulation Pollen [facility] 04-03-2020 influenza virus vacc ine, unspecified formulation Pollen [facility] 05-29-2019 influenza virus vacc ine, unspecified formulation Pollen [facility] 04-14-2019 influenza, unspecifi ed formulation Pollen [facility] 09-26-2018 tetanus and diphther ia toxoids, adsorbed, preservative free, for adult use (2 Lf of tetanus toxoid and 2 Lf of diphtheria toxoid) [employer] [facility] 10-11-2017 pneumococcal polysaccharide vaccine, 23 valent Pollen [facility] 07-22-2016 pneumococcal conjuga te vaccine, 13 valent Pollen [facility] 06-29-2013 tetanus toxoid, redu mirtha diphtheria toxoid, and acellular pertussis vaccine, adsorbed [facility] 03-10-2000 Td(adult) unspecifie d formulation Pollen [facility] Payers Date Payer Category Payer Unknown 2022 Self-pay [id number] 1958 Medicare [id number] 1959 Unknown [id number] 2.16.840.1.588840.19 1951 Unknown [id number] 2.16.840.1.638074.3.579.2. 593 1951 Unknown [id number] 2.16.840.1.571621.3.579.2. 593 1951 Unknown [id number] 2.16.840.1.815657.3.579.2. 593 1951 Unknown [id number] 2.16.840.1.896901.3.579.2. 593 1951 Unknown [id number] 2.16.840.1.671015.3.579.2. 593 1951 Unknown [id number] 2.16.840.1.675968.3.579.2. 593 1951 Unknown [id number] 2.16.840.1.683548.3.579.2. 593 1951 Unknown [id number] 2.16.840.1.900856.3.579.2. 593 1951 Unknown [id number] 2.16.840.1.970345.3.579.2. 593 1951 Unknown [id number] 2.16.840.1.445763.3.579.2. 593 1951 Unknown [id number] 2.16.840.1.790959.3.579.2. 593 1951 Unknown [id number] 2.16.840.1.055789.3.579.2. 593 1951 Unknown [id number] 2.16.840.1.539309.3.579.2. 593 1951 Unknown [id number] 2.16.840.1.117184.3.579.2. 593 1951 Unknown [id number] 2.16.840.1.949207.3.579.2. 593 1951 Unknown [id number] 2.16.840.1.134697.3.579.2. 593 1951 Unknown [id number] 2.16.840.1.596267.3.579.2. 593 1951 Unknown [id number] 2.16.840.1.401162.3.579.2. 593 1951 Unknown [id number] 2.16.840.1.345883.3.579.2. 593 1951 Unknown [id number] 2.16.840.1.698309.3.579.2. 727 1951 Unknown [id number] 2.16.840.1.651280.3.579.2. 727 1951 Unknown [id number] 2.16.840.1.760640.3.579.2. 727 1951 Unknown [id number] 2.16.840.1.124563.3.579.2. 727 1951 Unknown [id number] 2.16.840.1.264370.3.579.2. 727 1951 Unknown [id number] 2.16.840.1.400907.3.579.2. 727 1951 Unknown [id number] 2.16.840.1.614236.3.579.2. 727 1951 Unknown [id number] 2.16.840.1.504043.3.579.2. 727 1951 Unknown [id number] 2.16.840.1.516862.3.579.2. 727 1951 Unknown [id number] 2.16.840.1.298544.3.579.2. 727 1951 Unknown [id number] 2.16.840.1.277212.3.579.2. 72 1951 Unknown [id number] 2.16.840.1.058119.3.579.2. 727 1951 Unknown [id number] 2.16.840.1.882064.3.579.2. 72 1951 Unknown [id number] 2.16.840.1.845553.3.579.2. 72 1951 Unknown [id number] 2.16840.1.562814.3.579.2. 196 1951 Unknown [id number] 2.16.840.1.506665.3.579.2. 196 1951 Unknown [id number] 2.16.840.1.145213.3.579.2. 196 1951 Unknown [id number] 2.16840.1.425449.3.579.2. 196 1951 Unknown [id number] 2.16840.1.217693.3.579.2. 196 Medicare Medicare [id number] Private Health Insurance [id number] Unknown [place] [id number] Unknown [id number] 2.16840.1.555984.3.579.2. 531 Unknown [id number] 2.840.1.748365.3.579.2. 531 Unknown [id number] 2.16.840.1.103671.3.579.2. 531 Unknown [id number] 2.16.840.1.080682.3.579.2. 531 Social History Date Type Detail Facility Start: 10-17-2021 End: 02-10-2023 Tobacco smoking status NHIS Ex-smoker (finding) [facility] Comment on above: pt quit smoking 10+ yrs ago Start: 1950 Sex Assigned At Male F [facility] Start: 11-05-2021 Tobacco smoking status Never s moked tobacco (finding) [facility] Tobacco smoking status Never [facility] [place] Comment on above: pt quit smoking 10+ yrs ago Sex Assigned At Male [facility] Medical Equipment Procedure Code Equipment Code Equipment Original Text Equipment Identifier Dates Transurethral resection of bladder tumor (TURBT) with cystoscopy Polymeric ureteral stent [id number] FDA Start: 10-29-2021 Decompression, spine, cervical, posterior approach Bone-screw internal spinal fixation system, non-sterile ()[id number] FDA Start: 04-18-2020 Decompression, spine, cervical, posterior approach Bone-screw internal spinal fixation system, non-sterile ()[id number] FDA Start: 04-18-2020 Decompression, spine, cervical, posterior approach Bone-screw internal spinal fixation system, non-sterile ()[id number] FDA Start: 04-18-2020 Decompression, spine, cervical, posterior approach Bone-screw internal spinal fixation system, non-sterile ()[id number] FDA Start: 04-18-2020 Decompression, spine, cervical, posterior approach Bone-screw internal spinal fixation system, non-sterile ()[id number] FDA Start: 04-18-2020 Goals Date Patient Goal Desired Activity /State Functional Status Date Assessment Result Facility 04-27-2023 Functional Status N/A [facility] 02-10-2023 Functional Status N/A [facility] 01-05-2023 Functional Status N/A [facility] 02-24-2022 Functional Status N/A [facility] of [facility] Clinical Notes 11-04-2021 to 04-27-2023 Note Date & Type Note Facility 04-27-2023 Note [id number] [facility] 04-27-2023 Hospital Discharge instructions Patient [...] Address: [facility] [address] [place] [address]- Business (1) When: Unknown Comments:Office will call to schedule follow up [facility] 04-27-2023 Note Custom Cystoscopy ? Voiding after [...] you have a fever over 100 degrees. [facility] 02-10-2023 Note Chief Complaint consultation [...] Cervical vertebral fu (more content not included)... [facility] Comment on above: Result Comment: Elec tronically Signed By: LUIS NOBLE, Qamar Ernandez\Date and Time Signed: 02/10/23 15:05 EDT 01-05-2023 Note [id number]#1.00CD:127 [facility] 01-05-2023 Hospital Discharge instructions Patient [...] [facility] [address], [place] [address]- Business (1) When: Unknown Comments:Office will call to schedule follow up [facility] 01-05-2023 Note Custom Cystoscopy ? Voiding after [...] you have a fever over 100 degrees. [facility] 12-03-2022 Evaluation note Encounter Date [...] M46.1) Nov, Neurogenic claudication (ICD-10 - R29.818) [facility] Other 05-04-2023 Evaluation note* Encounter Date Diagnosis [...] October, Other chronic pain (ICD-10 - G89.29) 04 May, 2023 Low back pain, unspecified (ICD-10 - M54.50) [...] spine October, Neurogenic claudication (ICD-10 - R29.818) [facility] Other [id number] Note [id number]:127[facility] 09-29-2022 NoteCustom Cystoscopy ? Voiding [...] if you have a fever over 100 degrees.[facility] 09-21-2022 Hospital Discharge instructions Patient [...] if anything looks unusual. Men with a bqtwwo-jdbm-honcca risk for skin cancer may want to see a residential specialist (ballistician) for an annual body check. Where to find more information National Cancer Ceresco: https://www.cancer.gov/about-cancer/screening Centers for Disease Control and Prevention: https://www.cdc.gov/cancer/dcpc/prevention/screening.htm [employer]: https://www.cancer.org/latest-news/8-qakhkx-xqldtswfg-tvicq-zhq-dzm.html Contact a health care provider if: You [...] 03/04/2017 Document Revised: 02/24/2019 Document Reviewed: 03/04/2017 [employer] Patient Education 2020 [employer] Follow Up Care 09/19/2021 11:05:08 With:DEVONTE NOBLE, Lionel Burgos, URL Address: [facility] [address] [place] [address]- When: Unknown [facility] 01-18-2023 Note [id number]:127[facility] 07-07-2022 Hospital Discharge instructions Patient [...] [place] Address: [facility] [address] [place] [address]- Business (1) When: Unknown Comments:Office will call to schedule follow up [facility]01-17-2023 NoteCustom Cystoscopy ? Voiding after the procedure: [...] if you have a fever over 100 degrees.[facility] 02-24-2022 Hospital Discharge instructions Patient [...] if anything looks unusual. Men with a jryysn-oilw-htrvws risk for skin cancer may want to see a residential specialist (ballistician) for an annual body check. Where to find more information National Cancer Ceres[employer]: https://www.cancer.gov/about-cancer/screening Centers for Disease Control and Prevention: https://www.cdc.gov/cancer/dcpc/prevention/screening.htm [employer]: https://www.cancer.org/latest-news/1-grkwgx-zdkwsvzyo-zuksm-hhb-ple.html Contact a health care provider if: You [...] 03/04/2017 Document Revised: 02/24/2019 Document Reviewed: 03/04/2017 [employer] Patient Education 2020 [employer]. Follow Up Care 02/05/2022 13:48:40 With:DEVONTE NOBLE, Lionel Burgos, URL Address: [facility] [address] , [place] [phone] When: Unknown [facility] 05-24-2022 Hospital Discharge instructions Patient Education 11/11/2021 [...] C[place] Address: [facility] [address] [place] [address] Business (1) When: Unknown Comments:Keep scheduled appointment [facility]05-17-2022 Hospital Discharge instructions Patient Education 11/04/2021 14:11:16 [...] who: Are older than age 65. Are -Haitian. Are obese. Have a family history of [...] cells. Follow these instructions at home: Take gurc-zgz-wuayisu and prescription medicines only as told by [...] 06/07/2006 Document Revised: 05/20/2018 Document Reviewed: 02/15/2017 [employer] Patient Education 2020 [employer]. Follow Up Care 10/14/2021 11:26:04 With:[place] Lionel NOBLE, URL Address: [facility] [address], [place] [address]- When: Unknown [facility] Evaluation + Plan note Future Appointments Appointment Date:09/21/2022 09:45:00 AM Scheduled Provider:Lionel CARRINGTON MD Location:[facility] Appointment Type:URO Office Visit [facility] Evaluation + Plan note Future Appointments Appointment Date:03/09/2022 09:00:00 AM Scheduled Provider: Location:[facility] Appointment Type:URO Nurse Visit Appointment Date:04/15/2022 09:00:00 AM Scheduled Provider: Location:[facility] [place] Appointment Type:URO Nurse Visit Appointment Date:09/21/2022 09:45:00 AM Scheduled Provider:Lionel CARRINGTON MD Location:[facility] [place] Appointment Type:URO Office Visit [facility] Evaluation + Plan note Future Appointments Appointment Date:03/09/2022 09:00:00 AM Scheduled Provider: Location:[facility] [place] Appointment Type:URO Nurse Visit Appointment Date:04/15/2022 09:00:00 AM Scheduled Provider: Location:[facility] Appointment Type:URO Nurse Visit Appointment Date:09/21/2022 09:45:00 AM Scheduled Provider:Lionel CARRINGTON MD Location:[facility] Appointment Type:URO Office Visit Diagnostic Tests Pending * Urine Culture [facility]ments Appointment Date:04/15/2022 09:00:00 AM Scheduled Provider: Location:[facility] [place] Appointment Type:URO Nurse Visit Appointment Date:09/21/2022 09:45:00 AM Scheduled Provider:Lionel CARRINGTON MD Location:[facility] Appointment Type:URO Office Visit [facility] evaluation + Plan note Future Appointments Appointment Date:07/20/2022 10:00:00 AM Scheduled Provider: Location:[facility] Appointment Type:URO Nurse Visit Appointment Date:08/17/2022 10:00:00 AM Scheduled Provider: Location:[facility] Appointment Type:URO Nurse Visit Appointment Date:09/21/2022 09:45:00 AM Scheduled Provider:Lionel CARRINGTON MD Location:[facility] Appointment Type:URO Office Visit Diagnostic Tests Pending * UroVysion FISH ([facility]) 07/07/22 [facility] App[facility]ments Appointment Date:08/17/2022 10:00:00 AM Scheduled Provider: Location:[facility] Appointment Type:URO Nurse Visit Appointment Date:09/21/2022 09:45:00 AM Scheduled Provider:Lionel CARRINGTON MD Location:[facility] Appointment Type:URO Office Visit [facility] Evaluation + Plan note Future Appointments Appointment Date:09/22/2022 02:00:00 PM Scheduled Provider: Location:[facility] Appointment Type:Urology CALL PAT FT Appointment Date:09/29/2022 11:15:00 AM Scheduled Provider: Location:[facility] Appointment Type:Urology FT [facility] evaluation + Plan note Future Appointments Appointment Date:09/22/2022 02:00:00 PM Scheduled Provider: Location:[facility] Appointment Type:Urology CALL PAT FT Appointment Date:09/29/2022 11:15:00 AM Scheduled Provider: Location:[facility] Appointment Type:Urology FT Diagnostic Tests Pending * Urine Cytology ([facility]) 09/21/22 [facility] evaluation + Plan note Future Appointments Appointment Date:10/04/2023 10:15:00 AM Scheduled Provider[facility] Office Visit Diagnostic Tests Pending * UroVysion Fish and Urine Cyto ([facility]) 01/05/23 [facility] Future App[facility]ments Appointment Date:10/04/2023 10:15:00 AM Scheduled Provider:Lionel CARRINGTON MD Location:[facility] Appointment Type:URO Office Visit General Surgery [place] Evaluation + Plan note Future Appointments Appointment Date:10/04/2023 10:15:00 AM Scheduled Provider:Lionel CARRINGTON MD Location:[facility] Appointment Type:URO Office Visit Diagnostic Tests Pending * UroVysion Fish and Urine Cyto ([facility]) 04/27/23 [facility] assessment information available [facility] Work Phone: [facility] general Narrative - Reported* Type Description Date [...] KNEE SCOPE Surgical History L shoulder NAE -[facility] 2016 Hospitalization History FLU X2-3 DAYS Hospitalization History see surg. hx. [facility] Other Hospital course Narrative No data available for this section [facility] Hospital Discharge instructions No data available for this section [facility] progress note No data available for this section [facility] Chief Complaint and Reason for Visit [...] Diagnosis 1 Cervical spondylosis (M47.812) [facility] Referring Provider First Name Zoran Referring Provider Last Name Scott Referring Provider Specialty Neurologica l Surgery Referred Organization [facility] Referred Address [address] [place], [place],[address] Referred Provider Specialty Physical The rapist Referral Priority Routine Reason evaluate and tr eat for neck and back pain Diagnosis 1 Cervical spondylosis (M47.812) Diagnosis 2 Low back pain, unspe cified (M54.50) Referral Organization [facility] Referring Provider First Name Zoran Referring Provider Last Name Scott Referring Provider Specialty Neurologica l Surgery Referred Organization [facility] Referred Provider Raoul Soriano Referred Address [address] [place], [place],[address] Referred Provider Specialty Pain Medicin e Referral [...] and content) DATE CREATED AUTHOR 11/27/2022 [facility] DATE CREATED AUTHOR AUTHOR'S ORGANIZ ATION 01/02/2023 [facility] DATE CREATED AUTHOR AUTHOR'S ORGANIZ ATION 06/28/2023 [facility] DATE CREATED AUTHOR AUTHOR'S ORGANIZ ATION 07/29/2023 [facility] FOR RECORDS PERTAINING TO PATIENTS WHO [...] BE BASED ON THE PRIMARY CLINICAL RECORDS. [employer] [facility]. provides no warranty or guarantee of the accuracy or completeness of information in this document.
== END 2023-07-22 23:59 | disposition home or self-care (01) ==
LOC: PM 07-30 12:04
PROVIDERS: PCP Family Medicine; Visit Provider Nurse Practitioner
DX: M47.812 Spondylosis without myelopathy or radiculopathy, cervical region (principal); Z79.891 Long term (current) use of opiate analgesic; M79.18 Myalgia, other site; M62.838 Other muscle spasm; M96.1 Postlaminectomy syndrome, not elsewhere classified
CPT/HCPCS: G0463; J1100; J2795

== ENCOUNTER 2023-07-26 12:05 | Outpatient (OUT) | payer MEDICARE, SELFPAY ==
--- OUTSIDE RECORDS SUMMARY | 2023-07-26 12:08 | XMS_ITS | CCD ---
Author Name Unknown Address [address] [place] [address] Organization [facility] Care Team Providers Care Supervisor Pastry Name Role Phone MD Yolande Staley Primary Care Provider [phone] MD Lionel Carrington Attending Provider Yolande Staley Primary Care Physician Leidy Plummer Unavailable Unavailable MD Yolande Staley Primary Care Provider [phone] MD Lionel Carrington Attending Provider Zoran Chavez [...] FATEMEH Higgin[employer] Unavailable MAGGIE, DR SOCORRO [employer] Unavailable PARTHA HYATT Consulting Unavailable SCOTT, [...] Unavailable MD Yolande Staley Primary Care Provider [phone] MD Zoran Chavez Attending Provider [phone] Syeda NOBLE, Tamiko Kilgore Attending Unavailable Syeda [...] Drug Allergy 04-11-20 20 Itching, Itching agitated [facility] (20 sources) Codeine; 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: [Codeine] Drug Allergy 06-04-20 14 rash [facility] (7 sources) oxyCODONE; 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: [oxycodone] Drug Allergy 04-11-20 20 Itching, agitated [facility] (16 sources) Acetaminophen / oxyCODONE; 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: [acetaminophen-oxyc odone] Drug Allergy aggitation [facility] James Comment on above: pt states this does not work for pt, pt is not allergic to vicodin (2 sources) cyclobenzaprine Drug Allergy itching [facility] [employer] Other (2 sources) HYDROcodone Drug Allergy anxiety [facility] [employer] Other (2 sources) tiZANidine Drug Allergy hives [facility] [employer] Other (3 sources) Acetaminophen / HYDROcodone; 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: [Vicodin] Drug Allergy [facility] Repository (2 sources) Acetaminophen / oxyCODONE Drug Allergy [facility] Repository (1 source) atorvastatin Drug Allergy [facility] Repository (2 sources) tiZANidine Drug Allergy [facility] Repository (1 source) Acetaminophen / oxyCODONE; 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: [Percocet 5/325] Drug Allergy [facility] Repository Medications Current Medications Medication Drug [...] 12:00am Start: 09-19-2021 take 2 tablets by [facility] twice daily carvedilol 6.25 mg Tab [...] 07, 2019 1:00am April 19, 2020 8:04am Ljcxmswivzp-Ruaiwspta-Hlxdvy er (6 sources) Anticholinergic, Corticosteroid, beta2-Adrenergic Agonist Start: 08-07-2019 Zjmixvovfvp-Rjzddrnzc-Srcfuf er (Trelegy Ellipta) 100-62.5-25 mcg Blister With [...] procedure, # 2 tab(s), Refills(s) 0, Pharmacy: [facility]/pharmacy #[id number], 170, cm, 01/20/23 10:45:00 EDT, Height/Length Dosing, 83.5, kg, 01/20/23 10:45:00 EDT, Weight Dosing Start Date: 01/20/23 Status: Ordered Start: 12-31-2022 take 1 tablet by barry th once daily Cipro 500 mg Tab 500 mg = 1 tab(s), Oral, Daily, Take 1 tablet the day before the procedure and 1 tablet after the procedure, # 6 tab(s), Refills(s) 0, Pharmacy: [facility]/pharmacy #[id number], 170, cm, 09/22/22 12:23:00 EDT, Height/Length Dosing, 78, kg, 02/24/22 10:53:00 EDT, W... Start Date: 12/31/22 Status: Ordered Start: 07-02-2022 take 1 tablet by barry once daily Cipro 500 mg Tab 500 mg = 1 tab(s), Oral, Daily, Take 1 tablet the day before the procedure and 1 tablet after the procedure, # 6 tab(s), Refills(s) 0, Pharmacy: [facility]/pharmacy #[id number], 170, cm, 02/24/22 10:53:00 EDT, [...] procedure, # 2 tab(s), Refills(s) 0, Pharmacy: [facility]/pharmacy #[id number], 170, cm, 11/05/21 11:37:00 EDT, [...] procedure, # 2 cap(s), Refills(s) 0, Pharmacy: [facility]/pharmacy #[id number], 188, cm, 02/10/23 14:22:00 EDT, [...] period., # 30 tab(s), Refills(s) 3, Pharmacy: [facility], 170, cm, 02/24/22 10:53:00 EDT, Height/Length Dosing, 78, kg, 02/24/22 10:53:00 EDT, Weight Dosing Start Date: 07/05/22 Status: Ordered Start: 09-19-2021 sildenafil 100 mg Tab 100 mg = 1 tab(s), Oral, Daily, Take 1 pill 30 minutes prior to sexual relations, # 30 tab(s), Refills(s) 3, [facility]: [facility], 170, cm, 09/19/21 10:16:00 [...] a surgery d one radical prostectomy at [facility] Cancer of prostate (20 sources) Personal [...] region] Episodic Other aftercare (1 source) Other chcf (current) drug therapy; 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: [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] Onset: 3 Episodic Other [...] - [facility]: Loretta Simons [facility]; Cc: Loretta Simons; Sent: 06/28/2023 10:52:09 EST Show up: 09/20/2023 10:52:00 EDT Subject: Cysto/6 mo Due Date/Time: 10/11/2023 10:52:00 EDT Reminder/Recall Patient is due in October 2023 for 6 month cysto/fish/cytol, PSA (bt ck) Normal [facility] UroVysion Fish and Urine Cyt o ([facility])on 05-26-2023 UVFISH & UC Revision Information Invalid Interpretation Code [facility] Comment on above: Result Comment: Jimbo ection Reason -[ To Nur, 05/26/23 - 14:52 ] Corrected report issued to include PMS/PWS. The diagnosis remains unchanged. Correction Notes - Performed By: #### 1 [id number] #### [facility] [address] [place] [address] Consent for Procedure/Surger yon 04-27-2023 Consent for Procedure/Surgery [id number] 0TIFF Normal [facility] Consent for Treatmenton Consent for Treatment [id number] 0TIFF Normal [facility] IntraOperative Documentson 1 06-27-2022 IntraOperative Documents [id number]#1.0 0TIFF Normal [facility] Main OR Intraoperative Recor don 04-27-2023 Main OR Intraoperative Record IntraOp Document Type FTURO Summary Primary Physician: Lionel CARRINGTON MD Finalized Date/Time: 04/27/23 11:02:57 Pt. Name: MARY DIAZ/Sex: 1950 Male Med Rec #: [id number] Physician: Lionel CARRINGTON MD Financial #: [id number] Pt. Type: O Room/Bed: / Admit/Disch: 04/27/23 [...] Nanci Luna Role Performed Surgeon - Primary Powder Blender - Primary Scrub - Primary Time In [...] PAULINA Rene RN, Ruthann 04/27/23 11:02 Normal [facility] Main OR Preoperative Recordo n 04-27-2023 Main OR Preoperative Record Holding Area Document Type FTURO Summary Primary Physician: Lionel CARRINGTON MD Finalized Date/Time: 04/27/23 10:26:02 Pt. Name: MARY DIAZ/Sex: 1950 Male Med Rec #: [id number] Physician: Lionel CARRINGTON MD Financial #: [id number] Pt. Type: O Room/Bed: / Admit/Disch: 04/27/23 [...] Complaints of Pain: No Skin Integrity Intact, [place], Warm, & Dry Vitals - EU Blood Pressure 167/96 Pulse 76 bpm Respirations 20 br/min SPO2 97 % Last Modified By: Avani Costello LPN 04/27/23 10:25:57 General Comments: Temp 36.7 Finalized By: Avani Costello LPN Document Signatures Signed By: Avani Costello LPN 04/27/23 10:26 Normal [facility] Operative Reporton Operative Report Patient: MARY [...] a surveillance cystoscopy in 6 months.. Normal [facility] Comment on above: Result Comment: Elec tronically Signed By: DEVONTE NOBLE, Lionel Ernandez\Date and Time Signed: 04/27/23 11:04 EST Outpatient Surgery Discharge Instructionon 04-27-2023 Outpatient Surgery Discharge Instruction [id number] 0TIFF Normal [facility] Reminderson 04-27-2023 Reminders - From: Loretta Simons To: EU - Recalls [facility]; Cc: Loretta Simons; Sent: 03/05/2023 14:06:16 EDT Show up: 07/22/2023 14:06:00 EST Subject: Cysto/fish/cytol, Due Date/Time: 08/09/2023 14:06:00 EST Reminder/Recall Patient is due in August 2023 for 4 month cysto/fish/cytol (bt ck), ? PSA Pt will be due in October 2023 for 6 month cysto Normal [facility] UroVysion Fish and Urine Cyt o ([facility])on 04-27-2023 [facility] Method of Extraction Voided Normal [facility] Comment on above: Performed By: #### 1 [id number] #### [facility] [address] [place] [address] [facility] Number of Jars 1 Invalid Interpretation Code [facility] Comment on above: Performed By: #### 1 [id number] #### [facility] [address] [place] [address] [facility] Specimen Urine Normal [facility] Comment on above: Performed By: #### 1 [id number] #### [facility] [address] [place] [address] [facility] Type of Service Technical Only Normal [facility] Comment on above: Performed By: #### 1 [id number] #### [facility] [address] [place] [address] Outside Colonoscopyon 2022 Outside Colonoscopy [id number]#1.0 0CD:127 [facility] Reminderson 03-16-2023 Reminders - From: Stephanie Fletcher LPN To: N - Clinical; Sent: 03/16/2023 07:57:36 EDT Show up: 02/08/2028 07:00:00 EDT Subject: colonoscopy recall Due Date/Time: 03/10/2028 07:00:00 EDT Reminder/Recall Patient due for surveillance colonoscopy 03/10/2028 due to history of colonic polyps. [facility] Reminderson 03-05-2023 Reminders - From: Loretta Simons [facility]; Cc: Loretta Simons; Sent: 07/02/2022 14:10:41 EST Show up: 08/19/2022 14:10:00 EST Subject: cysto/fish/cytol Due Date/Time: 09/07/2022 14:10:00 EDT Reminder/Recall Pt is due in September 2022 for 3 month cysto/fish./cytol (bt ck) Patient scheduled for 09/29/22. He will be due in December 2022.LG Patient scheduled for 01/05/23. Pt will be due in Mar 2023.LG Patient sched for 4 month cysto 04/27/23 at [facility]. He will be due in August 2023.LG new thread [facility] Consent for Procedure/Surger yon 02-11-2023 Consent for Procedure/Surgery [id number] CD:127 [facility] Ambulatory Visit Summaryon [...] NOBLE, Lionel Burgos Where: [facility] Lab Reportson 02-03-2023 Lab Reports [id number] 0CD:127 Normal [facility] Physician Referralon 023 Physician Referral [id number] 0CD:127 Normal [facility] UroVysion Fish and Urine Cyt o ([facility])on 02-03-2023 UV[facility] & UC Revision Information Invalid Interpretation Code [facility] Comment on above: Result Comment: Jimbo ection Reason -[ To Nur, 02/03/23 - 12:32 ] Corrected report issued to update PMS/PWS. The diagnosis remains unchanged. Correction Notes - Performed By: #### 1 [id number] #### [facility] [address] [place] [address] Lab Reportson 01-29-2023 Lab Reports [id number] 0CD:127 Normal [facility] Operative Reporton Operative Report [id number] 0CD:127 Normal [facility] Ambulatory Visit Summaryon 0 01-20-2023 Ambulatory [...] LUIS NOBLE, Qamar Burgos Where: General Surgery [facility] Normal [address] [place] [address] [place] [address]- \.br\ You Need to Schedule the Following Appointments\.b r\ Follow Up with DEVONTE NOBLE, Lionel Burgos, URL When: \.br\ Comments:\.br\ sched cysto\.br\ Where:\.br\ [facility] [address]\.br\ [place] [address]-\.br\ [phone]\.br\ Medications\.br \ What How Much When Instructions\.b r\ New ciprofloxacin (Cipro 500 mg Tab) 1 Tablets By Mouth Every day take one tab day before procedure and one tab after procedure Pickup at [facility]/pharmacy #[id number]\.br\ Unchanged sildenafil (sildenafil 100 mg Tab) 1 [...] questions or concerns \.br\ Pharmacy Information\.br \ [facility]/pharmacy #[id number]: [address], [place] [id number] [phone]\.br\ Allergies\.br\ Percocet 5/325\.br\ codeine (hives/rashes)\ .br\ Problems\.br\ [...] these instructions at home:\.br\ ? \.br\ Take rfsp-kjv-bwuavh r and prescription medicines only as told [...] to find more information\.br \ ? \.br\ [place] [employer] (ACS): cancer.org\.br\ ? \.br\ National Cancer [place] (NCI): cancer.gov\.br\ Contact a health care provider [...] based on the stage of your cancer.\.br\ [facility] Ambulatory Visit Summary MARY DIAZ :1950 [...] [place] [facility] [address] [place] [address]- \.br\ You Need to Schedule the Following Appointments\.b r\ Follow Up with DEVONTE NOBLE, Lionel Burgos, URL When: \.br\ Comments:\.br\ sched cysto\.br\ Where:\.br\ [facility] [address]br\ [place] [address]-\.br\ [phone]\.br\ Medications\.br \ What How Much When Instructions\.b [...] these instructions at home:\.br\ ? \.br\ Take kdhi-rcr-zdsfmm r and prescription medicines only as told [...] to find more information\.br \ ? \.br\ [place] [employer] (ACS): cancer.org\.br\ ? \.br\ National Cancer [place] (NCI): cancer.gov\.br\ Contact a health care provider [...] to you by your health care pro [facility] Pathology Noteon 01-20-2023 Pathology Note [id number] 0CD:127 Normal [facility] Patient Educationon 01-21-20 23 Patient Education [...] Follow these instructions at home: ? Take yljl-hup-agwcwcb and prescription medicines only as told by [...] important. Where to find more information ? [place] [employer] (ACS): cancer.org ? National Cancer [place] (NCI): cancer.gov Contact a health care provider [...] wi (more content not included)... Normal [facility] Urology Office/Clinic Noteon 01-20-2023 Urology [...] Urology [address], [place] [phone] Additional Instructions: sched cysto Patient Education Bladder [...] 11:37 EDT Lab Reportson 01-11-2023 Lab Reports [id number] 0CD:127 [facility] Consent for Procedure/Surger yon 01-05-2023 Consent for Procedure/Surgery [id number]#1. 00CD:127 [facility] Consent for Treatmenton 07- Consent for Treatment [id number] 0CD:127 [facility] IntraOperative Documentson 0 01-05-2023 IntraOperative Documents [id number]. 00CD:127 [facility] Main OR Intraoperative Recor don 01-05-2023 Main OR Intraoperative Record IntraOp Document Type FTURO Summary Primary Physician: Lionel CARRINGTON MD Finalized Date/Time: 01/05/23 10:57:53 Pt. Name: MARY DIAZ/Sex: 1950 Male Med Rec #: [id number] Physician: Lionel CARRINGTON MD Financial #: [id number] Pt. Type: O Room/Bed: / Admit/Disch: 01/05/23 [...] Zora Luna Role Performed Surgeon - Primary Powder Blender - Primary Scrub - Primary Time In [...] PAULINA Rene RN, Ruthann 01/05/23 10:57 Normal [facility] Main OR Preoperative Recordo n 01-05-2023 Main OR Preoperative Record Holding Area Document Type FTURO Summary Primary Physician: Lionel CARRINGTON MD Finalized Date/Time: 01/05/23 10:43:08 Pt. Name: MARY DIAZ/Sex: 1950 Male Med Rec #: [id number] Physician: Lionel CARRINGTON MD Financial #: [id number] Pt. Type: O Room/Bed: / Admit/Disch: 01/05/23 [...] 10:13 Nanci Cortes RN 01/05/23 10:16 Nanci Crotes RN 01/05/23 10:15 Nanci Cortes RN 01/05/23 10:13 PAULINA Rene RN, Ruthann 01/05/23 10:43 Normal [facility] Operative Reporton Operative Report Patient: MARY [...] tumor has developed in these areas.. Normal [facility] Comment on above: Result Comment: Elec tronically Signed By: DEVONTE NOBLE, Lionel Ernandez\Date and Time Signed: 01/05/23 10:59 EDT UroVysion Fish and Urine Cyt o ([facility])on 01-05-2023 [facility] Method of Extraction Bladder Wash Normal [facility] Comment on above: Performed By: #### 1 [id number] #### [facility] [address] [place] [address] [facility] Number of Jars 1 Invalid Interpretation Code [facility] Comment on above: Performed By: #### 1 [id number] #### [facility] [address] [place] [address] [facility] Specimen Urine Normal [facility] Comment on above: Performed By: #### 1 [id number] #### [facility] [address] [place] [address] [facility] Type of Service Technical Only Normal [facility] Comment on above: Performed By: #### 1 [id number] #### [facility] [address] [place] [address] MR lumbar spine wo conon MR lumbar spine wo [facility] Main [place] [id number] MRI Report Signed Patient: Mary Diaz MR#: [id number] : 1950 Acct:[id number] Age/Sex: 72 / M ADM Date: 01/01/23 Loc: MR Room: Type: [facility] Attending Dr: Zoran Chavez MD Copies [...] Jamaica Alas M.D.01/01/2023 2:48 PM Dictation Location: [place] [address] Transcribed By: [facility] 01/01/23 1448 Dictated By: Jamaica Alas II, MD 01/01/23 144 Signed By: 01/01/23 1448 [facility] Retail - Clinical Noteon Retail - Clinical Note [id number] 0CD:127 Normal [facility] XR CSPINE MIN 4 VIEWSon 05-0 [...] by: ALLI CORTES Date: 2022-10-23 11:53 Normal [facility] XR LSPINE W_OBLS AND FLEX_EX Ton 10-23-2022 XR LSPINE W_OBLS AND FLEX_EXT EXAM: XR LSPINE W_OBLS AND FLEX_EXT HISTORY: Low back pain COMPARISON: None. TECHNIQUE: 2 views Findings/impression: Retrolisthesis of L2 over L3 by 4 mm. Multilevel endplate degenerative changes, disc disease, and anterior spurring. Calcified atherosclerotic disease of aorta. No acute fracture. Electronically authenticated by: JAMAICA GONZALEZ Date: 2022-10-23 13:18 Normal [facility] BNPon 10-06-2022 Natriuretic peptide B (Bld) [Mass/Vol] 844.0 pg/mL Normal <=900.0 [facility] Comment on above: Performed By: #### C VDTB #### [facility] [address] [place] [address] Dr. Johnna Dixon CBC AUTO DIFFon 10-06-2022 BASO # 0.0 103/ul Normal 0.0-0.1 [facility] Comment on above: Performed By: #### C BC #### [facility] [address] [place] [address] Dr. Johnna Dixon Basophils/100 WBC (Bld) 0.0 % Critically low 0.2-2.0 [facility] Comment on above: Performed By: #### C BC #### [facility] [address] [place] [address] Dr. Johnna Dixon EO # 0.0 103/ul Normal 0.0-0.7 [facility] Comment on above: Performed By: #### C BC #### [facility] [address] [place] [address] Dr. Johnna Dixon Eosinophils/100 WBC (Bld) 0.0 % Critically low 0.9-7.0 [facility] Comment on above: Performed By: #### C BC #### [facility] [address] [place] [address] Dr. Johnna Dixon Erythrocyte distribution width (RBC) [Ratio] 13.9 % Normal 11.0-15.0 [facility] Comment on above: Performed By: #### C BC #### [facility] [address] [place] [address] Dr. Johnna Dxion Hematocrit (Bld) [Volume fraction] 33.6 % Critically low 42.0-54.0 [facility] Comment on above: Performed By: #### C BC #### [facility] [address] [place] [address] Dr. Johnna Dixon Hemoglobin (Bld) [Mass/Vol] 11.1 g/dL Critically low 14.0-18.0 [facility] Comment on above: Performed By: #### C BC #### [facility] [address] [place] [address] Dr. Johnna Dixon IG # 0.03 10e3/ul Normal 0.00-0.03 [facility] Comment on above: Performed By: #### C BC #### [facility] [address] [place] [address] Dr. Johnna Dixon IG % 0.5 % Normal 0.0-0.5 [facility] Comment on above: Performed By: #### C BC #### [facility] [address] [place] [address] Dr. Johnna Dixon LYMPH # 0.7 103/ul Critically low 1.2-3.8 [facility] Comment on above: Performed By: #### C BC #### [facility] [address] [place] [address] Dr. Johnna Dixon Lymphocytes/100 WBC (Bld) 11.5 % Critically low 20.5-60.0 [facility] Comment on above: Performed By: #### C BC #### [facility] [address] [place] [address] Dr. Johnna Dixon MANUAL DIFF REQ NO Normal [facility] Comment on above: Performed By: #### C BC #### [facility] [address] [place] [address] Dr. Johnna Dixon MCH (RBC) [Entitic mass] 31.0 pg Normal 25.9-34.0 [facility] Comment on above: Performed By: #### C BC #### [facility] [address] [place] [address] Dr. Johnna Dixon MCHC (RBC) [Mass/Vol] 33.0 g/dL Normal 29.9-35.2 [facility] Comment on above: Performed By: #### C BC #### [facility] [address] [place] [address] Dr. Johnna Dixon MCV (RBC) [Entitic vol] 93.9 fL Normal 80.0-94.0 [facility] Comment on above: Performed By: #### C BC #### [facility] [address] [place] [address] Dr. Johnna Dixon MONO # 0.3 103/ul Normal 0.3-0.8 [facility] Comment on above: Performed By: #### C BC #### [facility] [address] [place] [address] Dr. Johnna Dixon Monocytes/100 WBC (Bld) 4.5 % Normal 1.7-12.0 [facility] Comment on above: Performed By: #### C BC #### [facility] [address] [place] [address] Dr. Johnna Dixon NEUT # 5.0 103/ul Normal 1.4-6.5 [facility] Comment on above: Performed By: #### C BC #### [facility] [address] [place] [address] Dr. Johnna Dixon Neutrophils/100 WBC (Bld) 83.5 % Critically high 43.0-75.0 [facility] Comment on above: Performed By: #### C BC #### [facility] [address] [place] [address] Dr. Johnna Dixon Platelet mean volume (Bld) [Entitic vol] 10.3 fL Normal 9.5-13.5 [facility] Comment on above: Performed By: #### C BC #### [facility] [address] [place] [address] Dr. Johnna Dixon PLT 184 103/ul Normal 150-450 [facility] Comment on above: Performed By: #### C BC #### [facility] [address] [place] [address] Dr. Johnna Dixon RBC 3.58 106/ul Critically low 4.70-6.10 [facility] Comment on above: Performed By: #### C BC #### [facility] [address] [place] [address] Dr. Johnna Dixon WBC 6.0 103/ul Normal 4.0-11.0 [facility] Comment on above: Performed By: #### C BC #### [facility] [address] [place] [address] Dr. Johnna Dixon PROF 14(COMP METB)on 023 Albumin [Mass/Vol] 2.7 g/dL Critically low 3.4-5.0 [facility] Comment on above: Performed By: #### C VDTBH #### [facility] [address] [place] [address] [address] Johnna Dixon Albumin/Globulin [Mass ratio] 0.9 {ratio} Normal [facility] Comment on above: Performed By: #### C VDTBH #### [facility] [address] [address] [address] Johnna Dixon ALP [Catalytic activity/Vol] 32 U/L Critically low 46-116 [facility] Comment on above: Performed By: #### C VDTBH #### [facility] [address] [place] [address] Dr. Johnna Dixon ALT [Catalytic activity/Vol] 19 U/L Normal 16-63 [facility] Comment on above: Performed By: #### C VDTBH #### [facility] [address] [place] [address] Dr. Johnna Dixon Anion gap [Moles/Vol] 14.0 mmol/L Normal [facility] Comment on above: Performed By: #### C VDTBH #### [facility] [address] [place] [address] Dr. Johnna Dixon AST [Catalytic activity/Vol] 12 U/L Critically low 15-37 [facility] Comment on above: Performed By: #### C VDTBH #### [facility] [address] [place] [address] Dr. Johnna Dixon Bilirubin [Mass/Vol] 0.6 mg/dL Normal 0.2-1.0 [facility] Comment on above: Performed By: #### C VDTBH #### [facility] [address] [place] [address] Dr. Johnna Dixon Calcium [Mass/Vol] 8.3 mg/dL Critically low 8.5-10.1 [facility] Comment on above: Performed By: #### C VDTB #### [facility] [address] [address] [address] Johnna Dixon Chloride [Moles/Vol] 107 mmol/L Normal 98-107 [facility] Comment on above: Performed By: #### C VDTBH #### [facility] [address] [address] [address] Johnna Dixon CO2 [Moles/Vol] 24.9 mmol/L Normal 21.0-32.0 [facility] Comment on above: Performed By: #### C VDTBH #### [facility] [address] [address] [address] Johnna Dixon Creatinine [Mass/Vol] 1.20 mg/dL Normal 0.70-1.30 [facility] Comment on above: Performed By: #### C VDTBH #### [facility] [address] [place] [address] Dr. Johnna Dixon EGFR-AF [place] >60 Normal >=60 [facility] Comment on above: Performed By: #### C VDTBH #### [facility] [address] [place] [address] Dr. Johnna Dixon EGFR-NON AF [place] 60 mL/min/1.73m2 Normal >=60 [facility] Comment on above: Performed By: #### C VDTBH #### [facility] [address] [place] [address] Dr. Johnna Dixon Globulin (S) [Mass/Vol] 2.9 g/dL Normal [facility] Comment on above: Performed By: #### C VDTBH #### [facility] [address] [place] [address] Dr. Johnna Dixon Glucose [Mass/Vol] 153 mg/dL Critically high 74-106 [facility] Comment on above: Performed By: #### C VDTBH #### [facility] [address] [place] [address] Dr. Johnna Dixon Potassium [Moles/Vol] 3.9 mmol/L Normal 3.5-5.1 [facility] Comment on above: Performed By: #### C VDTBH #### [facility] [address] [place] [address] Dr. Johnna Dixon Protein [Mass/Vol] 5.6 g/dL Critically low 6.4-8.2 [facility] Comment on above: Performed By: #### C VDTBH #### [facility] [address] [place] [address] Dr. Johnna Dixon Sodium [Moles/Vol] 142 mmol/L Normal 136-145 [facility] Comment on above: Performed By: #### C VDTBH #### [facility] [address] [place] [address] Dr. Johnna Dixon Urea nitrogen [Mass/Vol] 14.0 mg/dL Normal 7.0-18.0 [facility] Comment on above: Performed By: #### C VDTBH #### [facility] [address] [place] [address] Dr. Johnna Dixon Urea nitrogen/Creatinine [Mass ratio] 11.7 mg/mg Normal [facility] Comment on above: Performed By: #### C VDTBH #### [facility] [address] [place] [address] Dr. Johnna Dixon CBC AUTO DIFFon 10-05-2022 BASO # 0.0 103/ul Normal 0.0-0.1 [facility] Comment on above: Performed By: #### S PUTGS #### [facility] [address] [place] [address] Dr. Johnna Dixon Basophils/100 WBC (Bld) 0.2 % Normal 0.2-2.0 [facility] Comment on above: Performed By: #### S PUTGS #### [facility] [address] [place] [address] Dr. Johnna Dixon EO # 0.0 103/ul Normal 0.0-0.7 [facility] Comment on above: Performed By: #### S PUTGS #### [facility] [address] [place] [address] Dr. Johnna Dixon Eosinophils/100 WBC (Bld) 0.2 % Critically low 0.9-7.0 [facility] Comment on above: Performed By: #### S PUTGS #### [facility] [address] [place] [address] Dr. Johnna Dixon Erythrocyte distribution width (RBC) [Ratio] 14.1 % Normal 11.0-15.0 [facility] Comment on above: Performed By: #### S PUTGS #### [facility] [address] [place] [address] Dr. Johnna Dixon Hematocrit (Bld) [Volume fraction] 39.9 % Critically low 42.0-54.0 [facility] Comment on above: Performed By: #### S PUTGS #### [facility] [address] [place] [address] Dr. Johnna Dixon Hemoglobin (Bld) [Mass/Vol] 12.8 g/dL Critically low 14.0-18.0 [facility] Comment on above: Performed By: #### S PUTGS #### [facility] [address] [place] [address] Dr. Johnna Dixon IG # 0.01 10e3/ul Normal 0.00-0.03 [facility] Comment on above: Performed By: #### S PUTGS #### [facility] [address] [place] [address] Dr. Johnna Dixon IG % 0.2 % Normal 0.0-0.5 [facility] Comment on above: Performed By: #### S PUTGS #### [facility] [address] [place] [address] Dr. Johnna Dixon LYMPH # 0.7 103/ul Critically low 1.2-3.8 [facility] Comment on above: Performed By: #### S PUTGS #### [facility] [address] [place] [address] Dr. Johnna Dixon Lymphocytes/100 WBC (Bld) 14.3 % Critically low 20.5-60.0 [facility] Comment on above: Performed By: #### S PUTGS #### [facility] [address] [place] [address] Dr. Johnna Dixon MANUAL DIFF REQ NO Normal [facility] Comment on above: Performed By: #### S PUTGS #### [facility] [address] [address] [address] Johnna Dixon MCH (RBC) [Entitic mass] 30.7 pg Normal 25.9-34.0 [facility] Comment on above: Performed By: #### S PUTGS #### [facility] [address] [address] [address] Johnna Dixon MCHC (RBC) [Mass/Vol] 32.1 g/dL Normal 29.9-35.2 [facility] Comment on above: Performed By: #### S PUTGS #### [facility] [address] [place] [address] Dr. Johnna Dixon MCV (RBC) [Entitic vol] 95.7 fL Critically high 80.0-94.0 [facility] Comment on above: Performed By: #### S PUTGS #### [facility] [address] [place] [address] Dr. Johnna Dixon MONO # 0.6 103/ul Normal 0.3-0.8 [facility] Comment on above: Performed By: #### S PUTGS #### [facility] [address] [place] [address] Dr. Johnna Dixon Monocytes/100 WBC (Bld) 12.5 % Critically high 1.7-12.0 [facility] Comment on above: Performed By: #### S PUTGS #### [facility] [address] [place] [address] Dr. Johnna Dixon NEUT # 3.6 103/ul Normal 1.4-6.5 [facility] Comment on above: Performed By: #### S PUTGS #### [facility] [address] [place] [address] Dr. Johnna Dixon Neutrophils/100 WBC (Bld) 72.6 % Normal 43.0-75.0 [facility] Comment on above: Performed By: #### S PUTGS #### [facility] [address] [place] [address] Dr. Johnna Dixon Platelet mean volume (Bld) [Entitic vol] 9.5 fL Normal 9.5-13.5 [facility] Comment on above: Performed By: #### S PUTGS #### [facility] [address] [address] [address] Johnna Dixon PLT 213 103/ul Normal 150-450 [facility] Comment on above: Performed By: #### S PUTGS #### [facility] [address] [place] [address] Dr. Johnna Dixon RBC 4.17 106/ul Critically low 4.70-6.10 [facility] Comment on above: Performed By: #### S PUTGS #### [facility] [address] [address] [address] Johnna Dixon WBC 5.0 103/ul Normal 4.0-11.0 [facility] Comment on above: Performed By: #### S PUTGS #### [facility] [address] [place] [address] Dr. Johnna Dixon CULTURE BLOODon 10-05-2022 Microscopic examination of blood, culture Culture Observations: NO GROWTH AT 5 DAYS. Normal [facility] Comment on above: Performed By: #### B LDCX2 #### [facility] [address] [place] [address] Dr. Johnna Dixon Microscopic examination of blood, culture Culture Observations: NO GROWTH AT 5 DAYS. Normal [facility] Comment on above: Performed By: #### S PUTGS #### [facility] [address] [place] [address] Dr. Johnna Dixon CULTURE SPUTUMon 10-05-2022 CULTURE SPUTUM Culture Observations : NORMAL RESPIRATORY JONATAN. Normal [facility] Comment on above: Performed By: #### S PUTGS #### [facility] [address] [place] [address] Dr. Johnna Dixon Covid-19 PCR (CVDTB)on 09-19 SARS-CoV-2 (COVID-19) RNA REX+probe Ql (Unsp spec) Not detected Normal NOT DETECTED [facility] Comment on above: Result Comment: This test is not yet approved or cleared by the [place] FDA. When there are no FDA-approved or cleared tests available, and other criteria are met, FDA can make tests available under an emergency access mechanism called an Emergency Use Authorization (EUA). The EUA for this test is supported by the [place] of Health and Human Service's (HHS's) declaration [...] SARS-CoV-2. Performed By: #### C VDTB #### [facility] [address] [place] [address] Dr. Johnna Dixon LACTATE/LACTIC ACIDon 2022 Lactate [Moles/Vol] 1.2 mmol/L Normal 0.4-2.0 [facility] Comment on above: Performed By: #### L ACT #### [facility] [address] [place] [address] Dr. Johnna Dixon Lactate [Moles/Vol] 2.4 mmol/L Critically high 0.4-2.0 [facility] Comment on above: Performed By: #### L ACT #### [facility] [address] [place] [address] Dr. Johnna Dixon Lab Reportson 10-05-2022 Lab Reports [id number]:[id number] Normal [facility] PROF CHEM 8 (BAS METB)on Anion gap [Moles/Vol] 12.6 mmol/L Normal [facility] Comment on above: Performed By: #### B MP #### [facility] [address] [place] [address] Dr. Johnna Dixon Calcium [Mass/Vol] 8.9 mg/dL Normal 8.5-10.1 [facility] Comment on above: Performed By: #### B MP #### [facility] [address] [address] [address] Johnna Dixon Chloride [Moles/Vol] 106 mmol/L Normal 98-107 [facility] Comment on above: Performed By: #### B MP #### [facility] [address] [address] [address] Johnna Dixon CO2 [Moles/Vol] 25.8 mmol/L Normal 21.0-32.0 [facility] Comment on above: Performed By: #### B MP #### [facility] [address] [address] [address] Johnna Dixon Creatinine [Mass/Vol] 1.41 mg/dL Critically high 0.70-1.30 [facility] Comment on above: Performed By: #### B MP #### [facility] [address] [address] [address] Johnna Dixon EGFR-AF [place] >60 Normal >=60 [facility] Comment on above: Performed By: #### B MP #### [facility] [address] [address] [address] Johnna Dixon EGFR-NON AF [place] 50 mL/min/1.73m2 Critically low >=60 [facility] Comment on above: Performed By: #### B MP #### [facility] [address] [place] [address] Dr. Johnna Dixon Glucose [Mass/Vol] 111 mg/dL Critically high 74-106 [facility] Comment on above: Performed By: #### B MP #### [facility] [address] [address] [address] Johnna Dixon Potassium [Moles/Vol] 3.4 mmol/L Critically low 3.5-5.1 [facility] Comment on above: Performed By: #### B MP #### [facility] [address] [address] [address] Johnna Dixon Sodium [Moles/Vol] 141 mmol/L Normal 136-145 [facility] Comment on above: Performed By: #### B MP #### [facility] [address] [address] [address] Johnna Dixon Urea nitrogen [Mass/Vol] 17.0 mg/dL Normal 7.0-18.0 [facility] Comment on above: Performed By: #### B MP #### [facility] [address] [address] [address] Johnna Dixon Urea nitrogen/Creatinine [Mass ratio] 12.1 mg/mg Normal [facility] Comment on above: Performed By: #### B MP #### [facility] [address] [address] [address] Johnna Dixon SPUTUM GRAM STAINon 10-06-19 COMMENTS Normal [facility] Comment on above: Performed By: #### S PUTGS #### [facility] [address] [place] [address] Dr. Johnna Dixon DIPHTHEROIDS [facility] Comment on above: Performed By: #### S PUTGS #### [facility] [address] [place] [address] Dr. Johnna Dixon EPITHELIALS <25 Normal [facility] Comment on above: Performed By: #### S PUTGS #### [facility] [address] [place] [address] Dr. Johnna Dixon FUNGAL ELEMENTS [facility] Comment on above: Performed By: #### S PUTGS #### [facility] [address] [place] [address] Dr. Johnna Dixon GRAM NEG BACILLI FEW [facility] Comment on above: Performed By: #### S PUTGS #### [facility] [address] [place] [address] Dr. Johnna Dixon GRAM NEG DIPPLOCOCCI Normal [facility] Comment on above: Performed By: #### S PUTGS #### [facility] [address] [address] [address] Johnna Dixon GRAM POS BACILLI [facility] Comment on above: Performed By: #### S PUTGS #### [facility] [address] [place] [address] Dr. Johnna Dixon GRAM POSITIVE COCCI FEW Normal [facility] Comment on above: Performed By: #### S PUTGS #### [facility] [address] [place] [address] Dr. Johnna Dixon WBC (Bld) [#/Vol] 10*3/uL Normal [facility] Comment on above: Performed By: #### S ANA #### [facility] [address] [place] [address] Dr. Johnna Dixon SYMPTOMATIC COVID-19 ANTIGEN on 10-05-2022 EUA Statement SEE BELOW Normal [facility] Comment on above: Result Comment: This test [...] sooner. Performed By: #### C GREERS #### [facility] [address] [place] [address] Dr. Johnna Dixon SARS-CoV-2 (COVID-19) RNA REX+probe Ql (Unsp spec) Negative Normal NEGATIVE [facility] Comment on above: Performed By: #### C VDMIKALAS #### [facility] [address] [place] [address] Dr. Johnna Dixon XR CHEST 1 Von [...] SOCORRO SERRANO Date: 2022-10-05 11:44 Normal [facility] Coding Summary.on 10-01-2022 Coding Summary. [id number] Ww +[id number] VCjxM4hB9TKWGfBZyspJSY JQHqPVaQajlRvGZ9jwUViA XJu IC8+NH6bPBCtJbhxcEEsn3 K2uFU9K68dcv4sYAkahRI6 ASWxRwZsxaznc0gyuOb9EF cuNmluOyBt DDOjnQ42KDY2lW75Wm96cM PcsQHos6ldpTy7EaUrHRJy CYP6jZqqDIzys9BtSWDbV7 6mfGAiz3O9 SPIanEhjfIZbAmAihMT8cW 9lCOjvrtztm7samztnAbg7 fv84uUJsh0U6xAH0I7Tqrx G1GTOudYVd UeegkNQTbB4qsanrq4gonr qpDwJpEAXdYQn8YGh7EQEh qTlxEqAgXO70CWQ9BAYvzs CyF9JkYGIv dMapHqK0n9G4Nr4BX1GRIq lpZ5GGNBSFMPtbdEN+PC90 ii55H8WjVqvcZwx6CNNqON J6wIZ0kW1j CAYhLBbaq3C4bQB0C7Lubr Tgnx1hq5llPUJlMXhdJ40z lODur7V1TDIdeNS3HUJlpV igJpEnfN21 Oyc+ECYalNzjk3YlFheqt6 yfh8xzqZp0QhflKDAzuwVk kRviIHZ8o5IgSt5rBOAwnU T6fYI4eH1c HsAqYzA0OUbbJ162ApOkdM SuPqfpA68pJ8IxqTL+PHRy Wtt1ATQmnCdnDZ5eZ1XyJK RpbmctbGVm hKlgFH8bPWMyefraTFSjiR 2fQZKrY9v4FmPxKmO2HLlk K0VbXWNegvfgKo86vD8xUp YmLpB5BOvv V6NjvhT8SBInhHQfNLzsDZ E0J92yl4Q7YVQlXDMdOCC2 vQC2sP7gpZxezzjxmUSjrF sgdmVydGlj RYvtTNbbH574JLUwkJfxBy NvZGluZyBEYXRlOiAgMDQv MTMvMjAyMzwvdGQ+PHRkIH W3sPwxIQMq qKEaLSlmFj7obZsulPftED 5jTUPamdovBEIglT8qBLAa hNYasYubJF6kRDPepxdtq8 58AwHnLMN6 SYFawMTiW4BouR9qOfJqWX LmJQBsM1CddGLjNHezU242 BUrrOpJ6WZQzgdRqK9QjTX FsaWduOiB0 d8P9It0Id4OqpplyO0ZcxN PjAvWoXjkkBGf3B5HqQsiu dHI+HP80ICTyQM92SOq5FR O0sHfqVPmi WENwR5RrzD2vReYvAFDhJX RkOyc+PHRhYmxlIHdpZHRo HFeoZBRyDrImyVwnLO7oVk 9yZGVyLWNv wUfwwKTiCkNlv1lvXCWzDJ kgKN6ucHizW9SvgPB9ZWBw x6p1Bv71D06gA1XklCY+PG RthSJ3sED8 nI8aSyPzOiN8SXmeJ082Gu DgmKFfCvwpf5xgd2fylZl2 NlY5HSDiquEnvBgzKJJ7l2 BfXi16K72e IHdpZHRoPSIxNSUiIHZhbG jktf2ueT9uId3+PGNvbCB3 hJF4jE6jFhChHhI4VWypV5 49InRvcCIv Mhigq3awb3xhzDf3FlTbME VkbnJstExkSMC6i3JdHs79 U3RldTtrt2SiPwa7kc24iM Bts0V7dAU8 C6UeILAdsmituWQsdFazKS 5bKZKtnkwvCYQsuQ1mPQVk C9s0ReQoCfG5PUljR4Jfln P0KKDrxDWa SXDpwQARrJ9uxqfoc9zkrc ueYrNfIDXuRKc2NSg0OFMv hXwoKwLbYBJ9PaX4GAZ7tO KahX0awDqs wtkclA4sNtb+ZXB5bXPflV LPQL3gLhaavCY+PHRkIHN0 kLqhXXzhGVTqaB2gJOVaJ3 h5GtOkQbH9 OLdpR6NievL6HPThnVWyGJ AjcIZJuD2afefob7hvedva FtAbHWKiFLf0ECk8HSXabI duOiBsZWZ0 GmK6BOL4gTTnaF4mlXkojj vwxE6ePcd+QmlydGggRGF0 TLa4P6IlRpa2XPPjnUcnCO 0ncGFkZGlu Cm9ruYinfQqnSR9mTPOzqp jbo122PbKnn3dfGWNboVBv SQiiRGT3B76do2E0FAUbYD FxJKQ9jEP3 fO1yfFartgcjyJNzdPivza RvrVknNUoqHEutO258SNPa lWguSlWrIDu3W5IgNyr6HZ PsjGmdZW5d qGTjYJcgCp2izJhuhHodNF 7jSWJfsdduq979ZiFyf7qk NPNcsVTpXQqsXDZ5I92gh8 R8PQSfSBHz ZZT7jGO7uV7beEbkkbalcV VmdDsgdmVydGljYWwtYWxp Z570UHXgvPmmYvLdtDc6N5 HcQjx0QZQz nLbcXS7qjBOfCEqmSa7tfR xjnRqkQC1zMMYtcxjto197 YaSbx9inVGRdkXTtWTjdXJ M2Z78mn1Z9 LKTjPVIkCVO3kLC2gH1tvC lnbjogbGVmdDsgdmVydGlj HLdjPMuaU575NNTloKvuBe BhdGllbnQg KPnpBWe6X0UbQlltfLO+PC 33PAOfPY49vHZadVEbm8rd uYh1XgHoWZWbNDQ3iLjySQ zqd1AqTGUk E10bpFJue7U1ILEtkAoosJ TqLiRexGC0aY3rCDninvil j8ejibavFhkhv1smut76jB 50W01hPGzn ZHRoPSIzMCUiIHZhbGlnbj 9mlA2cFk1+CDUbdAI2bTT6 iA5lNZYqMaI4KEjzF019Zj RvcCIvPjxj a4fal7yxyEb1FyN0AXCssm FsrWmxPUN0c9VmJq13K62w IHdpZHRoPSIyMCUiIHZhbG okcg3vxX2p Ii8+FSJzcYB8yCQ7bH0aCg NyBoL4JCisB717PuVfgZNg DzvdM72mI9CwtNN+PHRyPj f8HBJkxFvf TQ7lhXZhFBcnJv1qZNM7Pp MuOcGoBOjlK9RlCMPdbjhn xhhouRQ2RHUjUNOhfE38Sl 9udDogMTBw gDDEvG4unclzc6crxmehTi OmJXFiLVt7ZOx9ZEKoiLqu CrWxUWN5EwX7FAG0cIBknC 1hbGlnbjog fA1zT1OoBOGhqyljDc33lD 7tHpVnImO1TKzoScx+S0xJ NgmQDVWsKZbTUNERXX23J7 FsEhx7PZFe cUvaDQ1nbJAtUNefSp4tdK umtVrlTX1eKMRdcbkzDQKb jB4iMRNcbAMmqXpxGS9qSN Fjyfvuv384 TjJfWLD5KJBaiLElL0BbrS 3eKqHgGSBqUQPsB2HtoAYg ENslC551ERmmXiJ9BGRibk DgW9EvLSWz jNqsGjS4g6L0Jg1zJD9pKZ 7aCSPkET01UC81iKHrh7F4 yXC5E8QjSLRzfewhxnbgpD C0WQIaILAt wA89kNHvGDyiOc4qe8M7k0 38RMNbKPOleV12Ak0hrRjd GOBwkBAIfJ0gxtnuo2rgwz ogIzAwMDAw YCa1HHh1XHCfgAruXfYuQH G9DgM8YBT2zHWwpR3utDtt yfywnT8nIvu+NzEgWWVhcn K2C8PqPfw4 YOAftOnlCF9vwPXlFJxvQb 4slIreySefQF8iODXxgpor YXPsuG5gOULmcRNmsVljJH 4wNTBpbjtm w829KoIqWAA2PTPiiGOvJ2 FqoD0dVlWiMZAhGEYhH1Hg lGLyXWefQ813PAouJwB8LG CpiwEwX6Yw FJPvnHcuMvB5b9S4Uv5YUJ srEL60KC71dJWqq2M3hIR4 F6FoMHPellkzoxylqIX1UC GjCRQygP10 yRXpSQxqXr1tw6W2w992HK YtJLFzuF58Bv9tvUayGJQd cRWHhP9fmkmtw7hbzgldEw AwMDAwMDt0 PKd8OMPrgYqvFcHqVPR1Dj R4KNR0dGJacR4aqFovwaob hV9mYbn+V2T6mRZ6sZEdfY wvdGQ+PC90 xn34D2QzWsujXnf0OGVaKE K6kAK8tO5pXRYoGKzzb8H9 zDB4S0BjbcGrwg0xu6ipVY UxHWgmO76q nCEhg6F8WSHpcTD2MHXlqU ybEiKolT79Lkh+PGNvbGdy c0XqKdazw5sdy8eswAe5Be MwJSIgdmFs rTvrIQR3l2XnCj90O86lRD dpZHRoPSIzMCUiIHZhbGln ru1ebU8hQh5+LZWnzOF8xP B6cI0nArUl XaH1BSagY420ReUpiJXhQu vne9ymq1ksiPr7AgKwTJDe zwEnxEyjXXB9d3AkZf66F3 SfvOafx1Oh Fer2bl91gHLyd0F7zML8E4 FqQXLllwvczNHndJteAU0q EAJpywkuNMOvwY0eJAWsK6 z4TfIjYsE8 DKmfO3DqtkO0PKCjdFWuZM GldORPtR4ceyghg7zkaylp FjWcVOCoCHp4YRd6OLTrlU duOiBsZWZ0 BuR1BIA8aLLteU7stUxtec tddJ6fYmv+UWa4z6xovMNe EC8kxCL5DR50WP31zKCpp3 C7kMQ4B1Gi CBHznzhoptuymNR1AJXhEI OesD03Pr9nxBzcQl5bNYQv YUO1KKRpdAPbE0FeqY2xIk AjMDAwMDAw X7TxcVIbVGxoS866ARwiBt N9PMZrkdZcI1LcLEWhhYis OcX2a8M6Oq7AJN27ZD15MA 66uMAid1J2 wBT6D5ZyXSMsdtlhofqjiH K4AXAzKENeqU32Gw0zzEee Yt4jSGMvSYH2WGFapCWsX2 NgvQ9eIfPm SGJeAMClJ7FhxSFkPGjiP4 65LZbnYzM4JPIzfuAsM3Xh CRBqhPciZbH6s7Y1Tr2GGg 26XX35KR94 pZLje7O4aHW7T0FkPGLwid gzfuisfVE4ATAwYVTxgF42 Mz3ikMcaEj7jDXJtYBQ9TL YijYKvF1Mr zR5rWiBhTWSdKGGdF9AopD MtWJujK814YZdgQmF1JQIp auTcL8JmKYBkvUgsKuZ0k3 D6Tn6PWPty oew1Z3YvQudlkOG+PC90YW FwPL48iHZhqSGnl1sozXd2 FlSyGUBoGYC0yKmpIVbuw3 PfCNMlL12z qYFpb5Y2 (more content not included)... Normal [facility] Consent for Procedure/Surger yon 09-29-2022 Consent for Procedure/Surgery [id number]#1.00 CD:127 [facility] Consent for Treatmenton 09-19 Consent for Treatment [id number]#1.0 0CD:127 [facility] IntraOperative Documentson 0 09-29-2022 IntraOperative Documents [id number]#1.00 CD:127 [facility] Main OR Intraoperative Recor don 09-29-2022 Main OR Intraoperative Record IntraOp Document Type FTURO Summary Primary Physician: Lionel CARRINGTON MD Finalized Date/Time: 09/29/22 10:53:58 Pt. Name: MARY DIAZ/Sex: 1950 Male Med Rec #: [id number] Physician: Lionel CARRINGTON MD Financial #: [id number] Pt. Type: O Room/Bed: / Admit/Disch: 09/29/22 [...] Nanci Luna Role Performed Surgeon - Primary Powder Blender - Primary Scrub - Primary Time In [...] PAULINA Rene RN, Ruthann 09/29/22 10:53 Normal [facility] Main OR Preoperative Recordo n 09-29-2022 Main OR Preoperative Record Holding Area Document Type FTURO Summary Primary Physician: Lionel CARRINGTON MD Finalized Date/Time: 09/29/22 10:52:30 Pt. Name: MARY DIAZ/Sex: 1950 Male Med Rec #: [id number] Physician: Lionel CARRINGTON MD Financial #: [id number] Pt. Type: O Room/Bed: / Admit/Disch: 09/29/22 [...] No Pain Comment: na Skin Integrity Intact, [place], Warm, & Dry Vitals - EU Blood Pressure 148/82 Pulse 53 bpm Respirations 16 br/min SPO2 96 % RN Reviewed Yes Last Modified By: PAULINA Rene RN, Ruthann 09/29/22 10:52:28 General Comments: temp:36.5 Finalized By: PAULINA Rene RN, Ruthann Document Signatures Signed By: Iram Thomas LPN 09/29/22 10:28 PAULINA Rene RN, Ruthann 09/29/22 10:52 Normal [facility] Operative Reporton Operative Report Patient: MARY [...] with antibiotic coverage, Follow up arranged. Normal [facility] Comment on above: Result Comment: Elec tronically Signed By: DEVONTE NOBLE, Lionel Gama.tacos\Date and Time Signed: 09/29/22 10:57 EDT Urine Cytology ([facility])on 0 09-28-2022 Urine Cytology Diagnosis Info Invalid Interpretation Code [facility] Comment on above: Result Comment: A:Ur ine,Urine:Voided Interpretation - MicroScopic Description - Adequacy - Gross Description Site ID:A color Yellow fixative Alcohol Specimen designated Urine received in alcohol preservative and labeled with the patient?s name, consists of 40ml clear yellow fluid. Electronically signed by : on: 09/28/2022 09:14:07 Performed By: #### 1 [id number] ####[facility] [address] [place] [address] US SINGLE QUAD RT UPPERon US SINGLE [...] SOCORRO HUFFMAN Date: 2022-09-24 09:46 Normal [facility] AMYLASEon 09-21-2022 Amylase [Catalytic activity/Vol] 78 U/L Normal 25-115 [facility] Comment on above: Performed By: #### C VDTBH #### [facility] [address] [place] [address] Dr. Johnna Dixon CBC AUTO DIFFon 09-21-2022 BASO # 0.0 103/ul Normal 0.0-0.1 [facility] Comment on above: Performed By: #### C VDTBH #### [facility] [address] [place] [address] Dr. Johnna Dixon Basophils/100 WBC (Bld) 0.5 % Normal 0.2-2.0 [facility] Comment on above: Performed By: #### C VDTBH #### [facility] [address] [place] [address] Dr. Johnna Dixon EO # 0.1 103/ul Normal 0.0-0.7 [facility] Comment on above: Performed By: #### C VDTBH #### [facility] [address] [place] [address] Dr. Johnna Dixon Eosinophils/100 WBC (Bld) 1.9 % Normal 0.9-7.0 [facility] Comment on above: Performed By: #### C VDTBH #### [facility] [address] [place] [address] Dr. Johnna Dixon Erythrocyte distribution width (RBC) [Ratio] 14.5 % Normal 11.0-15.0 [facility] Comment on above: Performed By: #### C VDTBH #### [facility] [address] [place] [address] Dr. Johnna Dixon Hematocrit (Bld) [Volume fraction] 39.1 % Critically low 42.0-54.0 [facility] Comment on above: Performed By: #### C VDTBH #### [facility] [address] [place] [address] Dr. Johnna Dixon Hemoglobin (Bld) [Mass/Vol] 12.8 g/dL Critically low 14.0-18.0 [facility] Comment on above: Performed By: #### C VDTBH #### [facility] [address] [place] [address] Dr. Johnna Dixon IG # 0.05 10e3/ul Critically high 0.00-0.03 [facility] Comment on above: Performed By: #### C VDTBH #### [facility] [address] [place] [address] Dr. Johnna Dixon IG % 0.7 % Critically high 0.0-0.5 [facility] Comment on above: Performed By: #### C VDTBH #### [facility] [address] [place] [address] Dr. Johnna Dixon LYMPH # 2.0 103/ul Normal 1.2-3.8 [facility] Comment on above: Performed By: #### C VDTBH #### [facility] [address] [place] [address] Dr. Johnna Dixon Lymphocytes/100 WBC (Bld) 27.4 % Normal 20.5-60.0 [facility] Comment on above: Performed By: #### C VDTBH #### [facility] [address] [place] [address] Dr. Johnna Dixon MANUAL DIFF REQ NO Normal [facility] Comment on above: Performed By: #### C VDTBH #### [facility] [address] [place] [address] Dr. Johnna Dixon MCH (RBC) [Entitic mass] 31.3 pg Normal 25.9-34.0 [facility] Comment on above: Performed By: #### C VDTBH #### [facility] [address] [place] [address] Dr. Johnna Dixon MCHC (RBC) [Mass/Vol] 32.7 g/dL Normal 29.9-35.2 [facility] Comment on above: Performed By: #### C VDTBH #### [facility] [address] [address] [address] Johnna Dixon MCV (RBC) [Entitic vol] 95.6 fL Critically high 80.0-94.0 [facility] Comment on above: Performed By: #### C VDTBH #### [facility] [address] [place] [address] Dr. Johnna Dixon MONO # 0.5 103/ul Normal 0.3-0.8 [facility] Comment on above: Performed By: #### C VDTBH #### [facility] [address] [place] [address] Dr. Johnna Dixon Monocytes/100 WBC (Bld) 6.9 % Normal 1.7-12.0 [facility] Comment on above: Performed By: #### C VDTBH #### [facility] [address] [place] [address] Dr. Johnna Dixon NEUT # 4.7 103/ul Normal 1.4-6.5 [facility] Comment on above: Performed By: #### C VDTBH #### [facility] [address] [place] [address] Dr. Johnna Dixon Neutrophils/100 WBC (Bld) 62.6 % Normal 43.0-75.0 [facility] Comment on above: Performed By: #### C VDTBH #### [facility] [address] [place] [address] Dr. Johnna Dixon Platelet mean volume (Bld) [Entitic vol] 9.3 fL Critically low 9.5-13.5 [facility] Comment on above: Performed By: #### C VDTBH #### [facility] [address] [place] [address] Dr. Johnna Dixon PLT 235 103/ul Normal 150-450 [facility] Comment on above: Performed By: #### C VDTBH #### [facility] [address] [place] [address] Dr. Johnna Dixon RBC 4.09 106/ul Critically low 4.70-6.10 [facility] Comment on above: Performed By: #### C VDTBH #### [facility] [address] [place] [address] Dr. Johnna Dixon WBC 7.4 103/ul Normal 4.0-11.0 [facility] Comment on above: Performed By: #### C VDTBH #### [facility] [address] [place] [address] Dr. Johnna Dixon LIPASEon 09-21-2022 Lipase [Catalytic activity/Vol] 114.0 U/L Normal 73.0-393.0 [facility] Comment on above: Performed By: #### C VDAGS #### [facility] [address] [place] [address] Dr. Johnna Dixon LIVER PROFILEon 09-21-2022 Albumin [Mass/Vol] 3.9 g/dL Normal 3.4-5.0 [facility] Comment on above: Performed By: #### C VDTBH #### [facility] [address] [place] [address] Dr. Johnna Dixon Albumin/Globulin [Mass ratio] 1.6 {ratio} Normal [facility] Comment on above: Performed By: #### C VDTBH #### [facility] [address] [place] [address] Dr. Johnna Dixon ALP [Catalytic activity/Vol] 59 U/L Normal 46-116 [facility] Comment on above: Performed By: #### C VDTBH #### [facility] [address] [place] [address] Dr. Johnna Dixon ALT [Catalytic activity/Vol] 23 U/L Normal 16-63 [facility] Comment on above: Performed By: #### C VDTBH #### [facility] [address] [place] [address] Dr. Johnna Dixon AST [Catalytic activity/Vol] 8 U/L Critically low 15-37 [facility] Comment on above: Performed By: #### C VDTBH #### [facility] [address] [place] [address] Dr. Johnna Dixon BILI, CONJUGATED 0.1 mg/dL Normal 0.0-0.2 [facility] Comment on above: Performed By: #### C VDTBH #### [facility] [address] [address] [address] Johnna Dixon Bilirubin [Mass/Vol] 0.3 mg/dL Normal 0.2-1.0 [facility] Comment on above: Performed By: #### C VDTBH #### [facility] [address] [place] [address] Dr. Johnna Dixon Globulin (S) [Mass/Vol] 2.5 g/dL Normal [facility] Comment on above: Performed By: #### C VDTBH #### [facility] [address] [place] [address] Dr. Johnna Dixon Protein [Mass/Vol] 6.4 g/dL Normal 6.4-8.2 [facility] Comment on above: Performed By: #### C VDTBH #### [facility] [address] [place] [address] Dr. Johnna Dixon PROF CHEM 8 (BAS METB)on Anion gap [Moles/Vol] 13.4 mmol/L Normal [facility] Comment on above: Performed By: #### C VDTBH #### [facility] [address] [place] [address] Dr. Johnna Dixon Calcium [Mass/Vol] 8.9 mg/dL Normal 8.5-10.1 [facility] Comment on above: Performed By: #### C VDTBH #### [facility] [address] [place] [address] Dr. Johnna Dixon Chloride [Moles/Vol] 106 mmol/L Normal 98-107 [facility] Comment on above: Performed By: #### C VDTBH #### [facility] [address] [place] [address] Dr. Johnna Dixon CO2 [Moles/Vol] 25.6 mmol/L Normal 21.0-32.0 [facility] Comment on above: Performed By: #### C VDTBH #### [facility] [address] [place] [address] Dr. Johnna Dixon Creatinine [Mass/Vol] 1.21 mg/dL Normal 0.70-1.30 [facility] Comment on above: Performed By: #### C VDTBH #### [facility] [address] [address] [address] Johnna Dixon EGFR-AF [place] >60 Normal >=60 [facility] Comment on above: Performed By: #### C VDTBH #### [facility] [address] [address] [address] Johnna Dixon EGFR-NON AF [place] 59 mL/min/1.73m2 Critically low >=60 [facility] Comment on above: Performed By: #### C VDTBH #### [facility] [address] [address] [address] Johnna Dixon Glucose [Mass/Vol] 115 mg/dL Critically high 74-[address] [facility] Comment on above: Performed By: #### C VDTBH #### [facility] [address] [address] [address] Johnna Dixon Potassium [Moles/Vol] 4.0 mmol/L Normal 3.5-5.1 [facility] Comment on above: Performed By: #### C VDTBH #### [facility] [address] [address] [address] Johnna Dixon Sodium [Moles/Vol] 141 mmol/L Normal 136-145 [facility] Comment on above: Performed By: #### C VDTBH #### [facility] [address] [address] [address] Johnna Dixon Urea nitrogen [Mass/Vol] 19.0 mg/dL Critically high 7.0-18.0 [facility] Comment on above: Performed By: #### C VDTBH #### [facility] [address] [address] [address] Johnna Dixon Urea nitrogen/Creatinine [Mass ratio] 15.7 mg/mg Normal [facility] Comment on above: Performed By: #### C VDTBH #### [facility] [address] [address] [address] Johnna Dixon Patient Educationon 09-22-19 23 [...] if anything looks unusual. Men with a vasouf-ltan-emgnan risk for skin cancer may want to see a learning disabilities specialist (workers compensation examiner) for an annual body check. Where to find more information ? National Cancer [place]: https://www.cancer.gov /about-cancer/screenin g ? Centers for Disease Control and Prevention: https://www.cdc.gov/ca ncer/dcpc/prevention/s creening.htm ? [place] [employer]: https://www.cancer.org /latest-news/4-cancer- keeiljyay-zquci-giy-me n.html Contact a health care (more content not included)... Normal [facility] Urine Cytology ([facility])on 0 09-21-2022 UC Method of Extraction Voided Normal [facility] Comment on above: Performed By: #### 1 [id number] ####[facility] [address] [place] [address] Number of Jars 1 Invalid Interpretation Code [facility] Comment on above: Performed By: #### 1 [id number] ####[facility] [address] [place] [address] Specimen Urine Normal [facility] Comment on above: Performed By: #### 1 [id number] ####[facility] [address] [place] [address] Type of Service Technical Only Normal [facility] Comment on above: Performed By: #### 1 [id number] ####[facility] [address] [place] [address] Ambulatory Visit Summaryon 0 08-17-2022 Ambulatory Visit [...] NOBLE, Lionel Burgos Where: [facility] Normal [facility] CREATININEon 08-04-2022 Creatinine [Mass/Vol] 1.31 mg/dL Critically high 0.70-1.30 [facility] Comment on above: Performed By: #### C JANIS #### [facility] [address] [address] [address] Johnna Dixon EGFR-AF [place] >60 Normal >=60 [facility] Comment on above: Performed By: #### C JANIS #### [facility] [address] [address] [address] Johnna Dixon EGFR-NON AF [place] 54 mL/min/1.73m2 Critically low >=60 [facility] Comment on above: Performed By: #### C JANIS #### [facility] [address] [address] [address] Johnna Dixon CTA NECK WO W [...] by: ALLI CORTES Date: 2022-08-04 14:04 Normal [facility] US CAROTID ART BILon 023 US CAROTID [...] by: ALLI CORTES Date: 2022-07-28 12:00 Normal [facility] Ambulatory Visit Summaryon 0 07-20-2022 Ambulatory Visit Summary MARY DIAZ :1950 Visit Date:07/20/2022 Ambulatory Visit Instructions Your Diagnosis History of bladder cancer Tests Performed Urnls Dip Stick Auto w/o Microscopy POC 90024 Your Care Team Attending Physician - Lionel [...] AM EST With: Where: [facility] Normal [address] [place] [address] [place] [address]- \.br\ Medications\.br \ What How Much When [...] Urnls Dip Stick Auto w/o Microscopy POC 31310 (07/20/2022)\.b r\ POC Test Comments - UA prior to Mitomycin tx\.br\ Bilirubin Urine Dipstick - Negative\.br\ Blood Urine Dipstick - Negative\.br\ Glucose Urine Dipstick - Negative\.br\ Ketones Urine Dipstick - Negative\.br\ Leukocytes Urine Dipstick - Negative\.br\ Nitrite Urine Dipstick - Negative\.br\ Protein Urine Dipstick - Negative\.br\ Specific [place] Urine Dipstick - 1.020\.br\ Urine Appearance Urine [...] for.\.br\ Acid reflux\.br\ Cancer of prostate\.br\ \.br\ [facility] Consent for Procedure/Surger yon 07-15-2022 Consent for Procedure/Surgery [id number] 0CD:127 Normal [facility] Consent for Procedure/Surgery [id number]#[id number] 0CD:127 Normal [facility] FISH ([facility])on 0 07-15-2022 UroVysion FISH Diagnosis Info Invalid Interpretation Code [facility] Comment on above: Result Comment: A:Ur [...] on: 07/15/2022 15:42:11 Performed By: #### 1 [id number] #### [facility] [address] [place] [address] Coding Summary.on 07-08-2022 Coding Summary. CD:[id number] Gh 0bWw+PGhlYWQ+MP1BFVPcT 19itQUlyQ3EA6jEAU6EJLV LSNBBRD7COW6sxNZ7HDmqO 2VybiAv CjqowTBsGY54TUj5YGB4pN bhEOvbzN2agIVmI2h9PlJv DJ67pF30ORsqTWFaQoU4Gv ZpbjsgbWFy Q1dhTjNcjYCgWlf+PHRhYm xlIHdpZHRoPScxMDAlJyBz vTnbXH1tKk1pWWVwEHDunL xhcHNlOiBj e1vyJTJvAPwxKC6zoPfsP3 DbpBK9SMOwt7d0Sk58uVO+ EHYbBBU0dDviTZglk755Tc Pel6bzCRV6 tEWaOCtsTXK0U41am1O8LM GhKVXfQEJ6dQQ7qL9hxDft edluA1CufCHeOoW8QXI9cR WrhG5tsUfj usyiqH7bVih+M97LKO2PGH LNOB9JMhc4D3JlKxaolOO+ NJ68UHRgHD14tQKufEWtl4 aqlEq9RbBd DEEqNRV6gMjsKElcx2KiTT OzV73rzIDvq7H6JDIrrIdz aFQvYlHksXI2tR4nMJyjtz hen0ggrokn Qbtqq1jgry95wN03B40fGL zwNMGbMCH5FFIlOCKxjIjc ht5qoV4aIp3+GXboo7ugm3 aweWn6CiJc NIRnupCxkZtiMUG1r9HiCm 40Y9BnwTlxd9SkPnp4rt37 iTMdl2A7oZN6PRlbHDWzhK 1bULpvBwB4 KVOhPuVooF82iBNhEWrvEc 4nxQuuuFprYK7rYCDpyvbh FMSqaG2jLXZxeAGmvQgnKZ 4wNTBpbjtm l583CkTqFYG5KJFebBHsR3 LwgN7hUvVtHVZuAGQoB4Em aLEcEDjuH961PEcaXiB7OX XqapDnW7Qz FZFymTvxKoA9k3L4Bb4Bo8 ChpqeiNLL0SUwqYVXlYkN2 UaZcKtJ7E2NlPhw3NIUuvC fhCF1sO6Ud LQHraupxakmtaQF2JYDnPZ TlrO97mRGpEHcwFe5bo3G6 s798NVHqTBMbgO41Tb5smB ogMTBwdCBU nO9xvtcus2dmyjoqQaUrYF SrXEz4TRi3HYNrnKcwVoYp LYS0QiI2RPL9tCFnfI7ggZ nywismaF0d Oyc+V18gsK8dXBX6NGW8ie ctCJCqbhLsZO34XY91H9Ju PjwvdGFibGU+PGRpdiBzdH qgPT9bAnJj f0tcq2WdKZoqG9HrWWRfSM avBjo8OYSaXOI6wLR7mL4j WXJoKScbo4Y6bZA2E7Yytk Nxpk6jr9qb WWDrFAhdY84kqSCzk6I0UA StwQG5VOGbgAzuNcSxaB37 Oyc+XHMboYafd7DrFijza1 krn1yifRa6 ZuWsELYmucPskKgvSTJ8t2 UwDe10V95tPIdoERXhZQVx AOUgILHoxPjlqf5gzP5vHf 8+PGNvbCB3 kRV1zP0aTIUtFmI1RKujD7 62EgKceQGmJstmh1ieh6mr uRe5ZxSuLREugoJhuUetPA I0s8CvKw06 V84rOLuyBHRmISXeGWRvWE NgoWgced6vjY6kNu4+PC9j u7rtjc06gR08oIL+PHRkIH D2cEvuJKxa UKQcoM6gIKfsYnE7CYZoLj OesZ73sXHpZFwuTb9eaAnj wQvmJP7bBKDmhigqt349Qu Jit4etKBKq eRKwAPtbDMJ1Q46bm4Z0JG WkAVKoEGE7dBX9tZ8wrZik bjogbGVmdDsgdmVydGljYW plMRcjQ088 IHRvcDsnPlBhdGllbnQgTm PhIMk7F6HiFzy9NIEcrAbl GM5ydGQtJWafHj4ddLfvdZ deIG0lSJXc tdpbl448FnPvs9crCRBvvR LfUFpbVDO2C65rh6K8FBVa PTQfDDP1uXH2fP4jkAkqaf ogbGVmdDsg twKxiKnmCTtgNUocU944JF RvcDsnPkJpcnRoIERhdGU6 IG90MN27oXLgb7L1jFN0I2 BhZGRpbmct otycxUH7DRAoVXGvbR16Tc 2xpSrlZc1wBWZxYQN1LYXa wSVbO8IxgQ6jGxOyHHSqDR VzM4HkgNQk LTudY506FUooEnN7YQOxqe WjX2YlBCThgVbbJiL9e2E2 Up1JQ1M1YI59SW90iJDso0 V9fXT7G2Hh NVTncuayhslggSL0ONSbUV HtlP69Sk3boCfpAx5eIOOp XVW4UBBqdCEeV4CubD4tBu AjMDAwMDAw A6JraKUbVDvaS816UDrkEr G6ZERbvcSmN4KeDUTzuDpt DmI7u0X4Xw0XYSe3AA67DD 01oOKpa2Q1 iPU1G5OtBVXckzdgxpbedW E0HUJoTRNbgR57Zi9vvWwe Xn9xOZZqXPP0GAJsrKDdX5 InjK5sRhId NIMsKKFiN8WtoHYjGGtpH6 86XYtfYyR5QGNgjhXgZ8Lk EFRngHsbQhG7y6W3Hc5AQE LePS30SRR8 uGH1LU42LF28A6DqOyibgK FibGU+PHRhYmxlIHdpZHRo BZccIQQbIhGezFgoCY1gPd 9yZGVyLWNv tIuofAKgHmDys9mjIUDlZD oqQA1gfYrlB5OplEO4FSBp y6u0Rk07A29vP7SwvUN+PG FrgCI3nUT3 rB7nKgGqZmL2FXjkH226Jd UewJJnYjxfx7uyz2yhiTj6 WdV6GBFwzuLksVpiFLQ9x4 AdLr88W93h IHdpZHRoPSIxNSUiIHZhbG cydf9maO5zJr7+PGNvbCB3 rLT6yS9lFxPyVrU8XKbpJ0 49InRvcCIv Gxrzp6dvu4mgyKs0EbBuEU SsgvWttCcdTYT3x0WrTk85 D1LosYpnw5HkYyp0hj34rD Afu7K8qRU9 B2BnHJLbxljcsTOxfKvuKO 8fOUFiqullULBzjW9gJSTs L0v7KfHgViS4PUbhA7Pzff I9SSWdnIZq AGjqJNG4T98mm8C0NSZyZO EbUNF5iRI0rQ0niUjbozuh bGVmdDsgdmVydGljYWwtYW qhD354QPIl vFsvLRIqhZ9jITKftFAssP zsXB3fZFRozhzrLedGJN9J EWMEFKVFIN0NWjOAGA13HA 92bDJii4E7 vQE9H2DhORZpmqkyspgrxJ S8FAYuKPDhvH65wUBnTLdc Vs0wx2O7y184EAKgDCVkvH 60Td0drFqe RPPhxJRLtD3ddqkqo8qvnw eaPaShJRSzGUy2OFs4EMQs hVtlXnWbJYJ3YwQ1INP8oA GqlB5ciZjg ctbeuC4iBrp+MDgvMTUvMT e7BUykhDS+TWMiJMP0uJjo VGszCYCwcC1tUAFcG5e4Nn CzVcO2WOeo V5UoZLLipgkkDf33qU5iDf FnNtP7ELryG0BdbgS4KOFg qTNwDYryJPK0H70bs3Y8KM MwMDAwMDA7 pCF4wT8tvFurthlwgAToqN vsvlFrvFvoXCqzSFcuG216 IHRvcDsnPjcxIFllYXJzPC 60SX79kPDk f7R0kZI3S3TcGHDsqztpnh gukPE5QWFfNBTshL02oTZc CBrvCu6uv9I2z632TXRqZM DccM49Gl7g iQcoPSJdiUUFbU1rosagt5 ghkyjfSeMtORChEHg1RNw9 RXOhwPryOcXxPOC0XeJ8FM B6uEJmzB4u mXsvwdtytJ0lTei+TWFsZT wvdGQ+SXOiXJZ8qHsyKWtw OQTjiR9jTYVdU1w0DgXyQn A9YGprK2Ah XQKxwzquAf79pL8zSaBiZw R0HHgwK4TzszN1WTXxzAMd XJdhUQO2Q39oa6A5EUXrYU PaYML5aRZ6 cR2edDlknmyqtASutJkjzn UdnMssENakIYqaV400PLXe aVgtUv06zVBdrOxqlhZ6P1 RkPjwvdHI+ ZP76DDYgLW54lJXdlLXpl7 njuVm0MsAqJTHfNBO5lFpe PTrhb1OrPGXkZ81kiROpa2 Z8GLBhgMnx vNOyYrIeyLO4lT3jYVauue ewd0qmcollXnwag4rvlq48 cB79N20kSHfhVBBeFRLbIV UiIHZhbGln qc5zvB0eRu9+DKExeKL8xA K9eY5sNvVwNsE7JCcrF755 DlJxqZUdElgwg2rin9oqzF j6HtPoMJPt xhHvjSckDYY9j4OoFn94V9 9sIHdpZHRoPSIyMCUiIHZh sQgdke0xiO8kMv1+PC9jb2 cwem70jU26 dHI+OJVaLCA0hLrzHZfgPO MyrP3oBKhjBgX1FUOrOcGs kW97hQDgJXngZg0nsKhrvX gjMS3jIGQr uybng955JkFat7ujMWZlhL ZnDCrdBFC1A32wx5Y6KCGk NZQkYCZ1hJV2fK9svOovdi ogbGVmdDsg uiHvrCqcWOfqERufV669LL MfkVbhIwUsyRAjS7xeyjZP MI2vJqfumMO+FEJiBLS2aV xlPSdwYWRk pU6gEKBvS4v3RaVsTxU6FC xaJ2TrwsD6XBGwgSFaAJEp lLHKbI0kjnefj8gltnijZd AwMDAwMDt0 DCt2HAPemUucBdVaBHX3Jb R0XJP4pFVglQ7ziFrbwznl gL5qHgx+RklOOjwvdGQ+PH CsATL4zEji RYptIJRwnZ5bBLEjF2c3Wx MrSuF1GCqkQ3NeyqN6AMWs cPLuQHDifVREqJ5wxocjw7 xvcjogIzAw QIHtTNc7MZr8RHVsnFxgBn CuXDE6FqW4TJF4mAHryB9o sTuehjhlcK1jDei+TVJOOj wvdGQ+PHRk CFP2kScrPFihCGScdL3xVM LuV6p5NuDnHyZ4NTupZ6Wn qiV8LGHrsBBeGQHycROKkG 8gopqky2fv hidwWnYnWHVcHSs6IZk0AM VjfAdhNsKvARF1ThJ5MCH4 uNFfmU8hjAbnxgaazN7tBt c+KPU7KVL7 WH67FK00P7EcUixmvOActU U+PHRhYmxlIHdpZHRoPScx NDBwOcVgnPdxPO9vNg1nYP VyLWNvbGxh cHNl (more content not included)... Normal [facility] Consent for Procedure/Surger yon 07-08-2022 Consent for Procedure/Surgery [id number]#1. 00CD:127 Normal [facility] IntraOperative Documentson 0 07-08-2022 IntraOperative Documents [id number]#1. 00CD:127 [facility] Consent for Treatmenton 06-21 Consent for Treatment [id number]#1.0 0CD:127 [facility] Main OR Intraoperative Recor don 07-07-2022 Main OR Intraoperative Record IntraOp Document Type FTURO Summary Primary Physician: Lionel CARRINGTON MD Finalized Date/Time: 07/07/22 13:40:45 Pt. Name: MARY DIAZ/Sex: 1950 Male Med Rec #: [id number] Physician: Lionel CARRINGTON MD Financial #: [id number] Pt. Type: O Room/Bed: / Admit/Disch: 07/07/22 [...] Zora Luna Role Performed Surgeon - Primary Powder Blender - Primary Scrub - Primary Time In [...] PAULINA Rene RN, Ruthann 07/07/22 13:40 Normal [facility] Main OR Preoperative Recordo n 07-07-2022 Main OR Preoperative Record Holding Area Document Type FTURO Summary Primary Physician: Lionel CARRINGTON MD Finalized Date/Time: 07/07/22 13:40:51 Pt. Name: MARY DIAZ/Sex: 1950 Male Med Rec #: [id number] Physician: Lionel CARRINGTON MD Financial #: [id number] Pt. Type: O Room/Bed: / Admit/Disch: 07/07/22 [...] No Pain Comment: na Skin Integrity Intact, [place], Warm, & Dry Vitals - EU Blood [...] PAULINA Rene RN, Ruthann 07/07/22 13:40 Normal [facility] Operative Reporton Operative Report Patient: MARY [...] then a repeat cystoscopy in September. Normal [facility] Comment on above: Result Comment: Elec tronically Signed By: DEVONTE NOBLE, Lionel Gama.tacos\Date and Time Signed: 07/07/22 10:51 EST [facility] FISH ([facility])on 0 07-07-2022 UV Method of Extraction Bladder Wash Normal [facility] Comment on above: Performed By: #### 1 [id number] #### [facility] [address] [place] [address] UV Number of Jars 1 Invalid Interpretation Code [facility] Comment on above: Performed By: #### 1 [id number] #### [facility] [address] [place] [address] UV Specimen Urine Normal [facility] Comment on above: Performed By: #### 1 [id number] #### [facility] [address] [place] [address] UV Type of Service Technical Only Normal [facility] Comment on above: Performed By: #### 1 [id number] #### [facility] [address] [place] [address] Retail - Clinical Noteon Retail - Clinical Note [id number] Normal [facility] XR KNEE RT 4V or >on [...] DEBORAH ZARAGOZA Date: 2022-06-30 17:38 Normal [facility] XR RIBS RT PA Fab 2 XR [...] SOCORRO SERRANO Date: 2022-05-25 14:51 Normal [facility] XR RIBS RT PA Fab 2 XR [...] atelectasis and small pleural effusion Normal [facility] CT CHEST WO CONon 04-18-2022 CT CHEST [...] SOCORRO BANSAL Date: 2022-04-18 16:17 Normal [facility] CULTURE URINEon 03-12-2022 CULTURE URINE Culture Observations : NO GROWTH. Normal [facility] Comment on above: Performed By: #### S ANA #### [facility] [address] [place] [address] Dr. Johnna Li 02-17-2022 L -- ---- Specimen: [id number] Received: 02/17/22 Status: ZACKERY Nails Num: [id number] Spec Type: Surgical Subm Dr: Lionel Carrington MD Tissues: A Urinary Bladder - biopsy (BLADDER TUMOR) Procedures: HE Stain/2, Gross/Micro L4, IHC First AB, IHC Add AB ---- Age/ Patient Sex Location Account Attending Physician ---- Mary Diaz/M [place] [id number] Lionel Carrington MD ---- SPEC NUM: [id number] RECD: 02/17/22 STATUS: ZACKERY NAILS NUM: [id number] JOE: 02/17/22- DR: Lionel Carrington MD ENTERED: 02/17/[address]: SPEC TYPE: Surgical DEPT: S ORDERED: HE Stain/2, Gross/Micro L4, IHC First AB, IHC Add AB ORDERED: HE Stain/2, Gross/Micro L4, IHC First AB, IHC Add AB Supplemental Report Addendum 1 Entered: 02/27/22-1037 This case was sent to [facility] with their interpretation as follows: FINAL DIAGNOSIS Urinary bladder, transurethral resection - 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 Please see [facility] case ( [id number] ) for further details Addendum Signed (signature on file) Sanjiv Correa MD 02/27/22 1037 ---- ---- Specimen: [id number] Received: 02/17/22-136 Status: ZACKERY Nails Num: [id number] Spec Type: Surgical Subm Dr: Lionel Carrington MD Tissues: A Urinary Bladder - biopsy (BLADDER TUMOR) Procedures: HE Stain/2, Gross/Micro L4, IHC First AB, IHC Add AB ---- Patient: Mary Diaz [id number] (Continued) ---- Specimen: [id number] Received: 02/17/22 (Continued) Signed (signature on file) Domi Florez MD 02/18/221899 ---- Specimen: [id number] Received: 02/17/22 Status: ZACKERY Nails Num: [id number] Spec Type: Surgical Subm Dr: Lionel Carrington MD Tissues: A Urinary Bladder - biopsy (BLADDER TUMOR) Procedures: HE Stain/2, Gross/Micro L4, IHC First AB, IHC Add AB ---- Patient: Mary Diaz [id number] (Continued) ---- Specimen: [id number] Received: 02/17/22 (Continued) Pathological Diagnosis Urinary bladder, transurethral resection: - Urothelial proliferation with atypia in a poorly oriented specimen with cautery and crushed artifacts - Detrusor muscle/muscularis propria not present NOTE: This case will be sent to [facility] for consultation and a supplemental report with [...] P53 shows wild type pattern of expression. 84471, 62868, 59002 The use of one or more reagents in the above tests is regulated as an analyte specific reagent (ASR). The performance characteristics were determined by the [facility] of [facility]. Immunohistochemistry assays have not been validated on decalcified tissue. Results should be interpreted with caution given the possibility of false negative results on decalcified specimens. They have not been cleared by the [place] Food and Drug Administration. The FDA has determined that such clearance or approval is not necessary. (more content not included)... Normal [facility] COVID[facility]19 [facility] [place] SARS-CoV-2 (COVID-19) RNA REX+probe Ql (Unsp spec) Negative Normal Negative [facility] Comment on above: Order Comment: Healt hcare Worker?: N Result Comment: Testing for SARS-CoV-2 by RT-PCR This test was developed and its performance characteristics determined by [employer] and validated at the [facility]. This test has not been FDA cleared [...] is terminated or revoked sooner. PERFORMED BY: [place] [address] PATHOLOGIST [employer] DOMI FLOREZ M.D. Performed By: #### C OVID 19 [facility] #### [address] COVID-19 Positive/NegativeOr dered By: Lionel Carrington on 02-13-2022 SARS-CoV-2 (COVID-19) N gene REX+probe Ql (Resp) Negative Negative [facility] Comment on above: Testing for SARS-CoV -2 by RT-PCR This test was developed and its performance characteristics determined by [employer] ([employer]) and validated at the [facility]. This test has not been FDA cleared [...] aPTT Coag (PPP) [Time] 34.8 s 25.1-36.5 [facility] Basic Metabolic Panelon 01-19 Calcium [Mass/Vol] 9.7 mg/dL Normal 8.2-10.2 [facility] Comment on above: Result Comment: PERF ORMED BY: [place] [address] PATHOLOGIST [employer] DOMI FLOREZ M.D. Performed By: #### B MP, PTT, PT, CBC #### [address] Chloride [Moles/Vol] 99 mmol/L Normal 95-114 [facility] Comment on above: Performed By: #### B MP, PTT, PT, CBC #### [address] CO2 [Moles/Vol] 26.2 mmol/L Normal 22.0-30.0 [facility] Comment on above: Performed By: #### B MP, PTT, PT, CBC #### [address] Creatinine [Mass/Vol] 1.21 mg/dL Normal 0.64-1.27 [facility] Comment on above: Performed By: #### B MP, PTT, PT, CBC #### [place] [address] [place] Estimated GFR ( [place] > 60 [facility] Comment on above: Result Comment: GFR estimated reference range: According to KDOQI guidelines, <60 ml/min/1.73m2 is sufficient to diagnose a patient with chronic kidney disease. Performed By: #### B MP, PTT, PT, CBC #### [place] [address] [place] Estimated GFR (Non- Am 59 [facility] Comment on above: Performed By: #### B MP, PTT, PT, CBC #### [facility] [address] Glucose [Mass/Vol] 99 mg/dL Normal 70-100 [facility] Comment on above: Result Comment: [place] Glucose Reference Range is dependent on time and content of last meal. Glucose of more than 200 mg/dL in a nonstressed, ambulatory subject supports the diagnosis of Diabetes Mellitus. ADA recommended reference range Performed By: #### B MP, PTT, PT, CBC #### [facility] [address] Potassium [Moles/Vol] 4.4 mmol/L Normal 3.5-5.1 [facility] Comment on above: Performed By: #### B MP, PTT, PT, CBC #### [facility] [address] Sodium [Moles/Vol] 135 mmol/L Low 136-146 [facility] Comment on above: Performed By: #### B MP, PTT, PT, CBC #### [facility] [address] Urea nitrogen [Mass/Vol] 20 mg/dL Normal 9-23 [facility] Comment on above: Performed By: #### B MP, PTT, PT, CBC #### [facility] [address] Basophils Auto (Bld) [#/Vol] Ordered By: Lionel Carrington on 02-06-2022 Basophils (Bld) [#/Vol] 0.0 10*3/uL 0.0-0.2 [facility] Basophils/100 WBC Auto (Bld) Ordered By: Lionel Carrington on 02-06-2022 Basophils/100 WBC (Bld) 0.8 % . [facility] Blood hemoglobin measurement (mass/volume)Ordered By: Lionel Carrington on 02-06-2022 Hemoglobin (Bld) [Mass/Vol] 13.2 g/dL 13.0-17.0 [facility] Blood leukocytes automated c ount (number/volume)Ordered By: Lionel Carrington on 02-06-2022 WBC (Bld) [#/Vol] 5.7 10*3/uL 4.5-11.0 [facility] Complete Blood Count Auto Di ffon 02-06-2022 Basophils (Bld) [#/Vol] 0.0 10*3/uL Normal 0.0-0.2 [facility] Comment on above: Result Comment: PERF ORMED BY: [place] [address] PATHOLOGIST [employer] DOMI FLOREZ M.D. Performed By: #### B MP, PTT, PT, CBC #### [address] Basophils/100 WBC (Bld) 0.8 % Normal . [facility] Comment on above: Performed By: #### B MP, PTT, PT, CBC #### [address] Eosinophils (Bld) [#/Vol] 0.1 10*3/uL Normal 0.0-0.45 [facility] Comment on above: Performed By: #### B MP, PTT, PT, CBC #### [place] [address] [place] Eosinophils/100 WBC (Bld) 1.7 % Normal . [facility] Comment on above: Performed By: #### B MP, PTT, PT, CBC #### [facility] [address] [place] [address] Erythrocyte distribution width (RBC) [Ratio] 14.2 % Normal 12.0-14.8 [facility] Comment on above: Performed By: #### B MP, PTT, PT, CBC #### [facility] [address] [place] [address] [place] Hematocrit (Bld) [Volume fraction] 40.8 % Normal 38.8-50.0 [facility] Comment on above: Performed By: #### B MP, PTT, PT, CBC #### [facility] [address] [place] [address] Hemoglobin (Bld) [Mass/Vol] 13.2 g/dL Normal 13.0-17.0 [facility] Comment on above: Performed By: #### B MP, PTT, PT, CBC #### [address] Lymphocytes (Bld) [#/Vol] 1.6 10*3/uL Normal 1.00-4.8 [facility] Comment on above: Performed By: #### B MP, PTT, PT, CBC #### [address] Lymphocytes/100 WBC (Bld) 27.4 % Normal . [facility] Comment on above: Performed By: #### B MP, PTT, PT, CBC #### [address] MCH (RBC) [Entitic mass] 29.7 pg Normal 27.5-35.2 [facility] Comment on above: Performed By: #### B MP, PTT, PT, CBC #### [address] MCV (RBC) [Entitic vol] 91.6 fL Normal 83.5-101 [facility] Comment on above: Performed By: #### B MP, PTT, PT, CBC #### [address] Mean Corpuscular HGB Conc 32.4 g/dL Low 32.5-35.6 [facility] Comment on above: Performed By: #### B MP, PTT, PT, CBC #### [address] Monocytes (Bld) [#/Vol] 0.5 10*3/uL Normal 0.0-0.8 [facility] Comment on above: Performed By: #### B MP, PTT, PT, CBC #### [address] Monocytes/100 WBC (Bld) 8.7 % Normal . [facility] Comment on above: Performed By: #### B MP, PTT, PT, CBC #### [address] Neutrophils (Bld) [#/Vol] 3.5 10*3/uL Normal 1.8-7.7 [facility] Comment on above: Performed By: #### B MP, PTT, PT, CBC #### [facility] [address] Neutrophils/100 WBC (Bld) 61.4 % Normal . [facility] Comment on above: Performed By: #### B MP, PTT, PT, CBC #### [facility] [address] Nucleated RBC/100 WBC (Bld) [Ratio] 0.1 % Normal 0-0.5 [facility] Comment on above: Performed By: #### B MP, PTT, PT, CBC #### [address] Platelet mean volume (Bld) [Entitic vol] 8.4 fL Normal 6.6-10.1 [facility] Comment on above: Performed By: #### B MP, PTT, PT, CBC #### [address] Platelets (Bld) [#/Vol] 248 10*3/uL Normal 150-450 [facility] Comment on above: Performed By: #### B MP, PTT, PT, CBC #### [address] RBC (Bld) [#/Vol] 4.45 10*6/uL Normal 3.90-5.60 [facility] Comment on above: Performed By: #### B MP, PTT, PT, CBC #### [place] [address] [place] WBC (Bld) [#/Vol] 5.7 10*3/uL Normal 4.5-11.0 [facility] Comment on above: Performed By: #### B MP, PTT, PT, CBC #### [address] Creatinine and Glomerular fi ltration rate.predicted panel (S/P/Bld)Ordered By: Lionel Carrington on 02-06-2022 Creatinine [Mass/Vol] 1.21 mg/dL 0.64-1.27 [facility] Eosinophils Auto (Bld) [#/Vo l]Ordered By: Lionel Carrington on 02-06-2022 Eosinophils (Bld) [#/Vol] 0.1 10*3/uL 0.0-0.45 [facility] Eosinophils/100 WBC Auto (Bl d)Ordered By: Lionel Carrington on 02-06-2022 Eosinophils/100 WBC (Bld) 1.7 % . [facility] Erythrocyte distribution wid th Auto (RBC) [Ratio]Ordered By: Lionel Carrington on 02-06-2022 Erythrocyte distribution width (RBC) [Ratio] 14.2 % 12.0-14.8 [facility] Estimated glomerular filtrat ion rate (GFR) non- AmericanOrdered By: Lionel Carrington on 02-06-2022 GFR/1.73 sq M.predicted among non-blacks MDRD (S/P/Bld) [Vol rate/Area] 59 mL/Min [facility] Hematocrit Auto (Bld) [Volum e fraction]Ordered By: Lionel Carrington on 02-06-2022 Hematocrit (Bld) [Volume fraction] 40.8 % 38.8-50.0 [facility] Laboratory - CoagulationOrde red By: Lionel Carrington on 02-06-2022 PT Coag (PPP) [Time] 11.0 s 9.0-12.9 [facility] - Hematology and Cell countsOrdered By: Lionel Carrington on 02-06-2022 Nucleated RBC/100 WBC (Bld) [Ratio] 0.1 % 0-0.5 [facility] Lymphocytes Auto (Bld) [#/Vo l]Ordered By: Lionel Carrington on 02-06-2022 Lymphocytes (Bld) [#/Vol] 1.6 10*3/uL 1.00-4.8 [facility] Lymphocytes/100 WBC Auto (Bl d)Ordered By: Lionel Carrington on 02-06-2022 Lymphocytes/100 WBC (Bld) 27.4 % . [facility] MCH Auto (RBC) [Entitic mass ]Ordered By: Lionel Carrington on 02-06-2022 MCH (RBC) [Entitic mass] 29.7 pg 27.5-35.2 [facility] MCHC Auto (RBC) [Mass/Vol]Or dered By: Lionel Carrington on 02-06-2022 MCHC (RBC) [Mass/Vol] 32.4 g/dL 32.5-35.6 [facility] MCV Auto (RBC) [Entitic vol] Ordered By: Lionel Carrington on 02-06-2022 MCV (RBC) [Entitic vol] 91.6 fL 83.5-101 [facility] Monocytes Auto (Bld) [#/Vol] Ordered By: Lionel Carrington on 02-06-2022 Monocytes (Bld) [#/Vol] 0.5 10*3/uL 0.0-0.8 [facility] Monocytes/100 WBC Auto (Bld) Ordered By: Lionel Carrington on 02-06-2022 Monocytes/100 WBC (Bld) 8.7 % . [facility] Neutrophils Auto (Bld) [#/Vo l]Ordered By: Lionel Carrington on 02-06-2022 Neutrophils (Bld) [#/Vol] 3.5 10*3/uL 1.8-7.7 [facility] Neutrophils/100 WBC Auto (Bl d)Ordered By: Lionel Carrington on 02-06-2022 Neutrophils/100 WBC (Bld) 61.4 % . [facility] No Panel InformationOrdered By: Lionel Carrington on 02-06-2022 Estimated GFR () > 60 mL/Min [facility] Comment on above: GFR estimated refere nce range: According to KDOQI guidelines, <60 ml/min/1.73m2 is sufficient to diagnose a patient with chronic kidney disease. Pharmacy Creatinine Clearance (Chem N/A [facility] Partial Thromboplastin Timeo n 02-06-2022 aPTT Coag (Bld) [Time] 34.8 s Normal 25.1-36.5 [facility] Comment on above: Result Comment: PERF ORMED BY: [facility] [address] [place] [address] PATHOLOGIST [employer] DOMI FLOREZ M.D. Performed By: #### B MP, PTT, PT, CBC #### [facility] [address] Platelet mean volume Auto (B ld) [Entitic vol]Ordered By: Lionel Carrington on 02-06-2022 Platelet mean volume (Bld) [Entitic vol] 8.4 fL 6.6-10.1 [facility] Platelet poor plasma interna tional normalized ratio (INR) by coagulation assay (relatOrdered By: Lionel Carrington on 02-06-2022 INR Coag (PPP) [Relative time] 1.0 {INR} [facility] Comment on above: INR Therapeutic Rang e [...] 02-06-2022 Platelets (Bld) [#/Vol] 248 10*3/uL 150-450 [facility] Prothrombin Time INRon 02-06 INR Coag (PPP) [Relative time] 1.0 {INR} Normal [facility] Comment on above: Result Comment: INR Therapeutic [...] #### B MP, PTT, PT, CBC #### [facility] [address] PT Coag (PPP) [Time] 11.0 s Normal 9.0-12.9 [facility] Comment on above: Performed By: #### B MP, PTT, PT, CBC #### [facility] [address] RBC Auto (Bld) [#/Vol]Ordere d By: Lionel Carrington on 02-06-2022 RBC (Bld) [#/Vol] 4.45 10*6/uL 3.90-5.60 [facility] Serum or plasma calcium eilezer urement (mass/volume)Ordered By: Lionel Carrington on 02-06-2022 Calcium [Mass/Vol] 9.7 mg/dL 8.2-10.2 [facility] Serum or plasma chloride sammy surement (moles/volume)Ordered By: Lionel Carrington on 02-06-2022 Chloride [Moles/Vol] 99 mmol/L 95-114 [facility] Serum or plasma glucose eliezer urement (mass/volume)Ordered By: Lionel Carrington on 02-06-2022 Glucose [Mass/Vol] 99 mg/dL 70-100 [facility] Comment on above: ADA recommended refe rence range Random Glucose Reference Range is dependent on time and content of last meal. Glucose of more than 200 mg/dL in a nonstressed, ambulatory subject supports the diagnosis of Diabetes Mellitus. Serum or plasma potassium me asurement (moles/volume)Ordered By: Lionel Carrington on 02-06-2022 Potassium [Moles/Vol] 4.4 mmol/L 3.5-5.1 [facility] Serum or plasma sodium measu rement (moles/volume)Ordered By: Lionel Carrington on 02-06-2022 Sodium [Moles/Vol] 135 mmol/L 136-146 [facility] Serum or plasma total carbon dioxide measurement (moles/volume)Ordered By: Lionel Carrington on 02-06-2022 CO2 [Moles/Vol] 26.2 mmol/L 22.0-30.0 [facility] Serum or plasma urea nitroge n measurement (mass/volume)Ordered By: Lionel Carrington on 02-06-2022 Urea nitrogen [Mass/Vol] 20 mg/dL 9-23 [facility] COVID-19 Positive/NegativeOr dered By: Lionel Carrington on 10-27-2021 SARS-CoV-2 (COVID-19) N gene REX+probe Ql (Resp) Negative Negative [facility] Comment on above: Testing for SARS-CoV -2 by RT-PCR This test was developed and its performance characteristics determined by [employer] ([employer]) and validated at the [facility]. This test has not been FDA cleared [...] aPTT Coag (PPP) [Time] 36.2 s 25.1-36.5 [facility] Basophils Auto (Bld) [#/Vol] Ordered By: Lionel Carrington on 10-17-2021 Basophils (Bld) [#/Vol] 0.0 10*3/uL 0.0-0.2 [facility] Basophils/100 WBC Auto (Bld) Ordered By: Lionel Carrington on 10-17-2021 Basophils/100 WBC (Bld) 0.6 % [facility] Blood hemoglobin measurement (mass/volume)Ordered By: Lionel Carrington on 10-17-2021 Hemoglobin (Bld) [Mass/Vol] 13.6 g/dL 13.0-17.0 [facility] Blood leukocytes automated c ount (number/volume)Ordered By: Lionel Carrington 10-17-2021 WBC (Bld) [#/Vol] 5.9 10*3/uL 4.5-11.0 [facility] Creatinine and Glomerular fi ltration rate.predicted panel (S/P/Bld)Ordered By: Lionel Carrington on 10-17-2021 Creatinine [Mass/Vol] 0.96 mg/dL 0.64-1.27 [facility] Eosinophils Auto (Bld) [#/Vo l]Ordered By: Lionel Carrington on 10-17-2021 Eosinophils (Bld) [#/Vol] 0.1 10*3/uL 0.0-0.45 [facility] Eosinophils/100 WBC Auto (Bl d)Ordered By: Lionel Carrington on 10-17-2021 Eosinophils/100 WBC (Bld) 2.0 % [facility] Erythrocyte distribution wid th Auto (RBC) [Ratio]Ordered By: Lionel Carrington on 10-17-2021 Erythrocyte distribution width (RBC) [Ratio] 14.5 % 12.0-14.8 [facility] Estimated glomerular filtrat ion rate (GFR) non- AmericanOrdered By: Lionel Carrington on 10-17-2021 GFR/1.73 sq M.predicted among non-blacks MDRD (S/P/Bld) [Vol rate/Area] > 60 mL/Min [facility] Hematocrit Auto (Bld) [Volum e fraction]Ordered By: Lionel Carrington on 10-17-2021 Hematocrit (Bld) [Volume fraction] 41.5 % 38.8-50.0 [facility] Laboratory - CoagulationOrde red By: Lionel Carrington on 10-17-2021 PT Coag (PPP) [Time] 11.0 s 9.0-12.9 [facility] Laboratory - Hematology and Cell countsOrdered By: Lionel Carrington on 10-17-2021 Nucleated RBC/100 WBC (Bld) [Ratio] 0.0 % 0-0.5 [facility] Lymphocytes Auto (Bld) [#/Vo l]Ordered By: Lionel Carrington on 10-17-2021 Lymphocytes (Bld) [#/Vol] 1.6 10*3/uL 1.00-4.8 [facility] Lymphocytes/100 WBC Auto (Bl d)Ordered By: Lionel Carrington on 10-17-2021 Lymphocytes/100 WBC (Bld) 26.8 % [facility] MCH Auto (RBC) [Entitic mass ]Ordered By: Lionel Carrington on 10-17-2021 MCH (RBC) [Entitic mass] 29.3 pg 27.5-35.2 [facility] MCHC Auto (RBC) [Mass/Vol]Or dered By: Lionel Carrington on 10-17-2021 MCHC (RBC) [Mass/Vol] 32.7 g/dL 32.5-35.6 [facility] MCV Auto (RBC) [Entitic vol] Ordered By: Lionel Carrington on 10-17-2021 MCV (RBC) [Entitic vol] 89.8 fL 83.5-101 [facility] Monocytes Auto (Bld) [#/Vol] Ordered By: Lionel Carrington on 10-17-2021 Monocytes (Bld) [#/Vol] 0.6 10*3/uL 0.0-0.8 [facility] Monocytes/100 WBC Auto (Bld) Ordered By: Lionel Carrington on 10-17-2021 Monocytes/100 WBC (Bld) 10.6 % [facility] Neutrophils Auto (Bld) [#/Vo l]Ordered By: Lionel Carrington on 10-17-2021 Neutrophils (Bld) [#/Vol] 3.5 10*3/uL 1.8-7.7 [facility] Neutrophils/100 WBC Auto (Bl d)Ordered By: Lionel Carrington on 10-17-2021 Neutrophils/100 WBC (Bld) 60.0 % [facility] No Panel InformationOrdered By: Lionel Carrington on 10-17-2021 Estimated GFR () > 60 mL/Min [facility] Comment on above: GFR estimated refere nce range: According to KDOQI guidelines, <60 ml/min/1.73m2 is sufficient to diagnose a patient with chronic kidney disease. Pharmacy Creatinine Clearance (Chem N/A [facility] Platelet mean volume Auto (B ld) [Entitic vol]Ordered By: Lionel Carrington on 10-17-2021 Platelet mean volume (Bld) [Entitic vol] 8.3 fL 6.6-10.1 [facility] Platelet poor plasma interna tional normalized ratio (INR) by coagulation assay (relatOrdered By: Lionel Carrington on 10-17-2021 INR Coag (PPP) [Relative time] 1.0 {INR} [facility] Comment on above: INR Therapeutic Rang e [...] 10-17-2021 Platelets (Bld) [#/Vol] 249 10*3/uL 150-450 [facility] RBC Auto (Bld) [#/Vol]Ordere d By: Lionel Carrington on 10-17-2021 RBC (Bld) [#/Vol] 4.62 10*6/uL 3.90-5.60 [facility] Serum or plasma calcium eliezer urement (mass/volume)Ordered By: Lionel Carrington on 10-17-2021 Calcium [Mass/Vol] 9.7 mg/dL 8.2-10.2 [facility] Serum or plasma chloride sammy surement (moles/volume)Ordered By: Lionel Carrington on 10-17-2021 Chloride [Moles/Vol] 101 mmol/L 95-114 [facility] Serum or plasma glucose eliezer urement (mass/volume)Ordered By: Lionel Carrington on 10-17-2021 Glucose [Mass/Vol] 87 mg/dL 70-100 [facility] Comment on above: ADA recommended refe rence range Random Glucose Reference Range is dependent on time and content of last meal. Glucose of more than 200 mg/dL in a nonstressed, ambulatory subject supports the diagnosis of Diabetes Mellitus. Serum or plasma potassium me asurement (moles/volume)Ordered By: Lionel Carrington on 10-17-2021 Potassium [Moles/Vol] 4.4 mmol/L 3.5-5.1 [facility] Serum or plasma sodium measu rement (moles/volume)Ordered By: Lionel Carrington on 10-17-2021 Sodium [Moles/Vol] 136 mmol/L 136-146 [facility] Serum or plasma total carbon dioxide measurement (moles/volume)Ordered By: Lionel Carrington on 10-17-2021 CO2 [Moles/Vol] 25.6 mmol/L 22.0-30.0 [facility] Serum or plasma urea nitroge n measurement (mass/volume)Ordered By: Lionel Carrington on 10-17-2021 Urea nitrogen [Mass/Vol] 18 mg/dL 03-13 [facility] Vital Signs Date Time Vital Sign Value Performing Clinician Facility 02-10-2023 14:16-0400 Blood Pressure Location [facility] 02-10-2023 14:16-0400 Diastolic blood pressure 80 mm[Hg] [facility] 02-10-2023 14:16-0400 Heart rate 70 /min [facility] 02-10-2023 14:16-0400 Respiratory rate 16 /min [facility] 02-10-2023 14:16-0400 Systolic blood pressure 124 mm[Hg] [facility] 12-03-2022 10:20-0400 Body height 182.88 cm Zoran Chavez Other [facility] Other 12-03-2022 10:20-0400 Body mass index (BMI) [Ratio] 25.49 kg/m2 Zoran Chavez Other [facility] Other 12-03-2022 10:20-0400 Body weight 85.28 kg Zoran Chavez Other [facility] Other 10-22-2022 10:20-0400 Body height 182.88 cm Zoran Chavez Other [facility] Other 10-22-2022 10:20-0400 Body mass index (BMI) [Ratio] 25.63 kg/m2 Zoran Chavez Other [facility] Other 10-22-2022 10:20-0400 Body weight 85.73 kg Zoran Chavez Other [facility] [employer] Other 10-22-2022 10:20-0400 Diastolic blood pressure 80 mm[Hg] Zoran Chavez Other [facility] [employer] Other 10-22-2022 10:20-0400 Systolic blood pressure 110 mm[Hg] Zoran Chavez Other [facility] [employer] Other 02-24-2022 10:43-0400 Blood Pressure Location Lionel CARRINGTON [facility] 02-24-2022 10:43-0400 Diastolic blood pressure 80 mm[Hg] Lioneljameel CARRINGTON [facility] 02-24-2022 10:43-0400 Heart rate 65 /min Lionel CARRINGTON [facility] 02-24-2022 10:43-0400 Respiratory rate 16 /min Lionel CARRINGTON [facility] 02-24-2022 10:43-0400 Systolic blood pressure 140 mm[Hg] Lionel CARRINGTON [facility] 02-17-2022 15:15-0400 Diastolic blood pressure 83 mm[Hg] MD Yolande Staley Work Phone: [facility] 02-17-2022 15:15-0400 Heart rate 58 /min MD Yolande Staley Work Phone: [facility] 02-17-2022 15:15-0400 Respiratory rate 16 /min MD Yolande Staley Work Phone: [facility] 02-17-2022 15:15-0400 SaO2% (BldA) [Mass fraction] 95 % MD Yolande Staley Work Phone: [facility] 02-17-2022 15:15-0400 Systolic blood pressure 166 mm[Hg] MD Yolande Staley Work Phone: [facility] 02-17-2022 14:30-0400 Body height 182.88 cm MD Yolande Staley Work Phone: [facility] 02-17-2022 14:30-0400 Body mass index (BMI) [Ratio] 26.2 kg/m2 MD Yolande Staley Work Phone: [facility] 02-17-2022 14:30-0400 Body weight 87.7 kg MD Yolande Staley Work Phone: [facility] 02-17-2022 14:17-0400 Body temperature 97.6 [degF] MD Yolande Staley Work Phone: [facility] 02-17-2022 13:52-0400 Inhaled oxygen flow rate 10 L/min MD Yolande Staley Work Phone: [facility] 10-17-2021 11:42-0400 Body height 180.34 cm MD Yolande Staley Work Phone: [facility] 10-17-2021 11:42-0400 Body mass index (BMI) [Ratio] 27 kg/m2 MD Yolande Staley Work Phone: [facility] 10-17-2021 11:42-0400 Body temperature 98.4 [degF] MD Yolande Staley Work Phone: [facility] 10-17-2021 11:42-0400 Body weight 88 kg MD Yolande Staley Work Phone: [facility] 10-17-2021 11:42-0400 Diastolic blood pressure 90 mm[Hg] MD Yolande Staley Work Phone: [facility] 10-17-2021 11:42-0400 Heart rate 64 /min MD Yolande Staley Work Phone: [facility] 10-17-2021 11:42-0400 SaO2% (BldA) [Mass fraction] 100 % MD Yolande Staley Work Phone: [facility] 10-17-2021 11:42-0408 Systolic blood pressure 172 mm[Hg] MD Yolande Staley Work Phone: [facility] Encounters Encounter Date Encounter Type Care Provider Facility Start: 04-27-2023 End: 04-28-2023 ambulatory Lionel CARRINGTON Facility:[facility] Start: 04-27-2023 End: 04-27-2023 Patient encounter procedure Lionel CARRINGTON [facility] Start: 03-10-2023 End: 03-11-2023 ambulatory Qamar R NILL Facility:CD:[id number] Start: 02-10-2023 End: 02-11-2023 ambulatory Qamar R NILL [facility] Start: 02-10-2023 End: 02-10-2023 Patient encounter procedure Qamar R NILL [facility] Start: 01-20-2023 End: 01-21-2023 ambulatory Lionel CARRINGTON Facility:[facility] Start: 01-14-2023 End: 01-15-2023 ambulatory Lionel CARRINGTON Facility:CD:[id number] Start: 01-05-2023 End: 01-06-2023 ambulatory Lionel CARRINGTON Facility:[facility] Start: 01-05-2023 End: 01-05-2023 Patient encounter procedure Lionel CARRINGTON [facility] Start: 01-01-2023 End: 01-01-2023 ambulatory Yolande Staley Facility:[facility] Start: 01-01-2023 End: 01-01-2023 ambulatory MD Yolande Staley Work Phone: [facility] Work Phone: Start: 01-01-2023 End: 01-01-2023 Patient encounter procedure MD Yolande Staley Work Phone: [facility] [place] Work Phone: Start: 12-28-2022 End: 12-29-2022 ambulatory Tmaiko Osman MD Facility:[facility] Start: 12-14-2022 End: 12-15-2022 ambulatory Tamiko Osman MD Facility:[facility] Start: 12-03-2022 End: 12-03-2022 ambulatory Zoran Chavez Other [facility] Other Start: 12-03-2022 Office outpatient visit 15 minutes Zoran Chavez [facility] Start: 11-20-2022 End: 11-21-2022 ambulatory ROMELRIUS OSMAN Facility:[facility] Start: 10-28-2022 End: 10-29-[address] NELLY HERRERA Facility:[facility] Start: 10-27-2022 End: 11-18-[address] ZORAN CHAVEZ Facility:[facility] Start: 10-23-2022 End: 10-24-[address] ZORAN CHAVEZ Facility:[facility] Start: 10-22-2022 End: 10-22-2022 ambulatory Zoran Chavez Other [facility] Other Start: 10-22-2022 Office outpatient visit 15 minutes Zoran Chavez [facility] [place] Start: 10-05-2022 End: 10-06-[address] YOLANDE STALEY . Facility:[facility] Start: 09-29-2022 End: 09-30-2022 ambulatory Lionel CARRINGTON Facility:[facility] Start: 09-24-2022 End: 09-25-[address] YOLANDE STALEY . Facility:[facility] Start: 09-21-2022 End: 09-22-[address] LIONEL CARRINGTON . Facility:[facility] Start: 09-21-2022 End: 09-22-2022 ambulatory Lionel CARRINGTON Facility: [facility] Start: 09-21-2022 End: 09-21-2022 Patient encounter procedure Lionel CARRINGTON [facility] Start: 08-19-2022 End: 08-20-[address] LIONEL CARRINGTON . Facility: Start: 08-17-2022 End: 08-18-2022 ambulatory Lionel CARRINGTON Facility:[facility] Start: 08-17-2022 End: 08-17-2022 Patient encounter procedure Lionel CARRINGTON [facility] Start: 08-04-2022 End: 08-05-[address] YOLANDE STALEY . Facility:[facility] Start: 07-28-2022 End: 07-29-[address] YOLANDE STALEY . Facility:[facility] Start: 07-23-2022 End: 07-23-[address] LIONEL CARRINGTON . Facility:[facility] Start: 07-20-2022 End: 07-21-2022 ambulatory Lionel CARRINGTON Facility:[facility] Start: 07-20-2022 End: 07-20-2022 Patient encounter procedure Lionel CARRINGTON [facility] Start: 07-07-2022 End: 07-08-2022 ambulatory Lionel CARRINGTON Facility:[facility] Start: 07-07-2022 End: 07-07-2022 Patient encounter procedure Lionel CARRINGTON [facility] Start: 06-30-2022 End: 07-01-[address] YOLANDE STALEY . Facility:[facility] Start: 06-04-2022 End: 06-04-[address] YOLANDE STALEY . Facility:[facility] Start: 05-25-2022 End: 05-26-[address] YOLANDE STALEY . Facility:[facility] Start: 05-18-2022 End: 05-18-2022 Patient encounter procedure Lionel CARRINGTON [facility] Start: 04-27-2022 End: 04-28-[address] YOLANDE STALEY . Facility:[facility] Start: 04-18-2022 End: 04-18-[address] FELICIA GALDAMEZ . Facility:[facility] Start: 04-15-2022 End: 04-15-2022 Patient encounter procedure Lionel CARRINGTON [facility] Start: 03-26-2022 End: 03-26-[address] LIONEL CARRINGTON . Facility:[facility] Start: 03-12-2022 End: 03-13-[address] YOLANDE STALEY . Facility:[facility] Start: 03-09-2022 End: 03-09-2022 Patient encounter procedure Lionel CARRINGTON [facility] Start: 02-27-2022 End: 02-27-2022 Lab Drop off Lionel CARRINGTON [facility] Start: 02-27-2022 End: 02-27-2022 Patient encounter procedure Lionel CARRINGTON [facility] Start: 02-24-2022 End: 02-24-2022 Patient encounter procedure Lionel CARRINGTON [facility] Start: 02-17-2022 End: 02-17-2022 ambulatory Lionel Carrington Facility:[facility] Start: 02-17-2022 End: 02-17-2022 Admission to same day surgery center MD Yolande Staley Work Phone: [facility] [place] [facility] [place] Start: 02-13-2022 End: 02-13-2022 ambulatory Lionel Carrington Facility:[facility] Start: 02-13-2022 End: 02-13-2022 Patient encounter procedure MD Yolande Staley Work Phone: [facility] Start: 02-06-2022 End: 02-06-2022 ambulatory Lionel Carrington Facility:[facility] Start: 02-06-2022 End: 02-06-2022 Patient encounter procedure MD Yolande Staley Work Phone: [facility] Start: 11-11-2021 End: 11-11-2021 Patient encounter procedure Lionel Burgos CARRINGTON [facility] Start: 11-05-2021 End: 11-05-2021 Patient encounter procedure Lionel Burgos [facility] [place] Start: 10-29-2021 End: 10-29-2021 Admission to same day surgery center MD Yolande Staley Work Phone: [facility] [place] Start: 10-27-2021 End: 10-27-2021 Patient encounter procedure MD Yolande Staley Work Phone: [facility] Start: 10-17-2021 End: 10-17-2021 Patient encounter procedure MD Yolande Staley Work Phone: [facility] Procedures Date Procedure Procedure Detail Performing Clinician Start: 01-01-2023 MR lumbar spine wo con MD Yolande Staley Work Phone: Start: 09-21-[address] NELLY HERRERA Comment on above: Performed By: #### P SAD #### [facility] [address] [place] [address] Dr. Johnna Dixon Start: 02-17-2022 Transurethral resect [...] CARRINGTON Comment on above: had recently at [facility] Start: 05-21-2014 Colonoscopy Qamar DOSS Start: 06-21-2010 Complete repair of r otator cuff Lionel CARRINGTON Comment on above: right Start: 06-21-1998 Shoulder reconstruction Lionel CARRINGTON Comment on above: left possibly a scre w in there per pt Start: 06-21-1964 Appendectomy Lionel KEELY STERLING Arthroplasty of the ankle Jose Alfredo henderson DEVONTE Comment on above: 1990 [facility]throsc[facility] Lionel CARRINGTON Plan of Treatment Date Care Activity Detail Author Start: 10-04-2023 ambulatory Ambulatory Facility:[facility] Start: 02-17-2022 End: 02-17-2022 [facility] Work Phone: Start: 02-17-2022 Transurethral resect ion of bladder neoplasm OR Cysto/TURBT/Bladder Biopsy/Fulg (Not Applicable) [facility] Start: 02-17-2022 End: 02-17-2022 Admission to same day surgery center Departed Surgical Day Care [facility] [place] Start: 02-13-2022 End: 02-13-2022 Patient encounter procedure Departed Clinical [facility]Xkiony[facility] Testing Patient referral [facility] Work Phone: Immunizations Immunization Date Immunization Notes Care Provider [facility] 04-16-2022 SARS-CoV-2 (COVID-19 ) [id number] Qamar SMITH [facility] 03-27-2022 influenza virus vacc ine, unspecified formulation Qamar SMITH [facility] 05-06-2021 COVID-19 mRNA-1273 (Moderna) MD Yolande Staley Work Phone: [facility] 09-19-2020 COVID-19 mRNA-1273 (Moderna) MD Yolande Staley Work Phone: [facility] Comment on above: Result Comment: 2022: [id number] 08-22-2020 COVID-19 mRNA-1273 (Moderna) MD Yolande Staley Work Phone: [facility] Comment on above: Result Comment: 2022: [id number] 06-21-2020 SARS-CoV-2 (COVID-19 ) mRNA-1273 vaccine Lionel CARRINGTON [facility] 05-23-2020 influenza virus vacc ine, unspecified formulation Agent Ace [facility] 04-03-2020 influenza virus vacc ine, unspecified formulation Agent Ace [facility] 05-29-2019 influenza virus vacc ine, unspecified formulation Agent Ace [facility] 04-14-2019 influenza, unspecifi ed formulation [employer] [facility] 09-26-2018 tetanus and diphther ia toxoids, adsorbed, preservative free, for adult use (2 Lf of tetanus toxoid and 2 Lf of diphtheria toxoid) [employer] [facility] 10-11-2017 pneumococcal polysaccharide vaccine, 23 valent Agent [employer] [facility] 07-22-2016 pneumococcal conjuga te vaccine, 13 valent Agent Ace [facility] 06-29-2013 tetanus toxoid, redu mirtha diphtheria toxoid, and acellular pertussis vaccine, adsorbed [employer] [facility] 03-10-2000 Td(adult) unspecifie d formulation Agent Ace [facility] Payers Date Payer Category Payer Unknown 2022 Self-pay [id number] 1958 Medicare [id number] 1958 Unknown [id number] 2.16.840.1.512815.19 1951 Unknown [id number] 2.16.840.1.588800.3.579.2. 593 1951 Unknown [id number] 2.16.840.1.308324.3.579.2. 593 1951 Unknown [id number] 2.16.840.1.152715.3.579.2. 593 1951 Unknown [id number] 2.16.840.1.623870.3.579.2. 593 1951 Unknown [id number] 2.16.840.1.057040.3.579.2. 593 1951 Unknown [id number] 2.16.840.1.062954.3.579.2. 593 1951 Unknown [id number] 2.16.840.1.700956.3.579.2. 593 1951 Unknown [id number] 2.16.840.1.984703.3.579.2. 593 1951 Unknown [id number] 2.16.840.1.547960.3.579.2. 593 1951 Unknown [id number] 2.16.840.1.444309.3.579.2. 593 1951 Unknown [id number] 2.16.840.1.620673.3.579.2. 593 1951 Unknown [id number] 2.16.840.1.044061.3.579.2. 593 1951 Unknown [id number] 2.16.840.1.044863.3.579.2. 593 1951 Unknown [id number] 2.16.840.1.126584.3.579.2. 593 1951 Unknown [id number] 2.16.840.1.705303.3.579.2. 593 1951 Unknown [id number] 2.16.840.1.086233.3.579.2. 593 1951 Unknown [id number] 2.16.840.1.269990.3.579.2. 593 1951 Unknown [id number] 2.16.840.1.271758.3.579.2. 593 1951 Unknown [id number] 2.16.840.1.479589.3.579.2. 593 1951 Unknown [id number] 2.16.840.1.934185.3.579.2. 196 1951 Unknown [id number] 2.16.840.1.992476.3.579.2. 196 1951 Unknown [id number] 2.16.840.1.900991.3.579.2. 196 1951 Unknown [id number] 2.16.840.1.496492.3.579.2. 727 1951 Unknown [id number] 2.16.840.1.671864.3.579.2. 727 1951 Unknown [id number] 2.16.840.1.290351.3.579.2. 727 1951 Unknown [id number] 2.16.840.1.945488.3.579.2. 727 1951 Unknown [id number] 2.16.840.1.341769.3.579.2. 727 1951 Unknown [id number] 2.16.840.1.757968.3.579.2. 727 1951 Unknown [id number] 2.16.840.1.364129.3.579.2. 727 1951 Unknown [id number] 2.16.840.1.063606.3.579.2. 727 1951 Unknown [id number] 2.16.840.1.751624.3.579.2. 727 1951 Unknown [id number] 2.16.840.1.985844.3.579.2. 727 1951 Unknown [id number] 2.16.840.1.605767.3.579.2. 727 1951 Unknown [id number] 2.16.840.1.884033.3.579.2. 727 1951 Unknown [id number] 2.16.840.1.461158.3.579.2. 727 1951 Unknown [id number] 2.840.1.557318.3.579.2. 727 Medicare Medicare [id number] Private Health Insurance [id number] Unknown [place] [id number] Unknown [id number] 2840.1.286393.3.579.2. 531 Unknown [id number] 08.06.830.1.425512.3.579.2. 531 Unknown [id number] 20.1.070563.3.579.2. 531 Unknown [id number] 20.1.654241.3.579.2. 531 Social History Date Type Detail Facility Start: 10-17-2021 End: 02-10-2023 Tobacco smoking status NHIS Ex-smoker (finding) [facility] Comment on above: pt quit smoking 10+ yrs ago Start: 1950 Sex Assigned At Male F [facility] Start: 11-05-2021 Tobacco smoking status Never s moked tobacco (finding) [facility] Tobacco smoking status Never [facility] Comment on above: pt quit smoking 10+ yrs ago Sex Assigned At Male [facility] Medical Equipment Procedure Code Equipment Code Equipment Original Text Equipment Identifier Dates Transurethral resection of bladder tumor (TURBT) with cystoscopy Polymeric ureteral stent ()[id number] FDA Start: 10-29-2021 Decompression, spine, cervical, posterior approach Bone-screw internal spinal fixation system, non-sterile ()[id number] FDA Start: 04-18-2020 Decompression, spine, cervical, posterior approach Bone-screw internal spinal fixation system, non-sterile ()[id number] FDA Start: 04-18-2020 Decompression, spine, cervical, posterior approach Bone-screw internal spinal fixation system, non-sterile ()[id number] FDA Start: 04-18-2020 Decompression, spine, cervical, posterior approach Bone-screw internal spinal fixation system, non-sterile ()[id number] FDA Start: 04-18-2020 Decompression, spine, cervical, posterior approach Bone-screw internal spinal fixation system, non-sterile ()[id number] FDA Start: 04-18-2020 Goals Date Patient Goal Desired Activity /State Functional Status Date Assessment Result Facility 04-27-2023 Functional Status N/A [facility] 02-10-2023 Functional Status N/A [facility] 01-05-2023 Functional Status N/A [facility] 02-24-2022 Functional Status N/A [facility] Clinical Notes 11-04-2021 to 04-27-2023 Note Date & Type Note Facility 04-27-2023 Note [id number]#[id number] [facility] 04-27-2023 Hospital Discharge instructions Patient Education [...] CARRINGTON Address: [facility] [address] [place] [address]- Business (1) When: Unknown Comments:Office will call to schedule follow up [facility] 04-27-2023 Note Custom Cystoscopy ? Voiding [...] you have a fever over 100 degrees. [facility] 02-10-2023 Note Chief Complaint consultation for [...] Cervical vertebral fu (more content not included)... [facility] Comment on above: Result Comment: Elec tronically Signed By: LUIS NOBLE, Qamar Ernandez\Date and Time Signed: 02/10/23 15:05 EDT 01-05-2023 Note [id number]#[id number]:127 [facility] 01-05-2023 Hospital Discharge instructions Patient Education [...] [facility] [address], [place] [address] Business (1) When: Unknown Comments:Office will call to schedule follow up [facility] 01-05-2023 Note Custom Cystoscopy ? Voiding [...] you have a fever over 100 degrees. [facility] 12-03-2022 Evaluation note Encounter Date Diagnosis [...] M46.1) Nov, Neurogenic claudication (ICD-10 - R29.818) [facility] Other 05-04-2023 Evaluation note* Encounter Date Diagnosis [...] spine October, Neurogenic claudication (ICD-10 - R29.818) [facility] Other 04-11-2023 Note [id number]:127[facility] 09-29-2022 NoteCustom Cystoscopy ? Voiding [...] if you have a fever over 100 degrees.[facility] 09-21-2022 Hospital Discharge instructions Patient Education [...] if anything looks unusual. Men with a draboz-thdg-kynkfs risk for skin cancer may want to see a learning disabilities specialist (workers compensation examiner) for an annual body check. Where to find more information National Cancer [place]: https://www.cancer.gov/about-cancer/screening Centers for Disease Control and Prevention: https://www.cdc.gov/cancer/dcpc/prevention/screening.htm [place] [employer]: https://www.cancer.org/latest-news/7-fhaoaz-ypjofoijo-biybr-mqv-ipz.html Contact a health care provider if: You [...] 03/04/2017 Document Revised: 02/24/2019 Document Reviewed: 03/04/2017 [employer] Patient Education 2020 [employer]. Follow Up Care 09/19/2021 11:05:08 With:DEVONTE NOBLE, Lionel Burgos, URL Address: [facility] [address] [place] [address]- When: Unknown [facility] 01-18-2023 Note [id number]:127[facility] 07-07-2022 Hospital Discharge instructions Patient [...] Address: [facility] [address] [place] [address]- Business (1) When: Unknown Comments:Office will call to schedule follow up [facility]01-17-2023 NoteCustom Cystoscopy ? Voiding after the [...] if you have a fever over 100 degrees.[facility] 02-24-2022 Hospital Discharge instructions Patient Education [...] if anything looks unusual. Men with a eznckd-nyrz-gfekzj risk for skin cancer may want to see a learning disabilities specialist (workers compensation examiner) for an annual body check. Where to find more information National Cancer [place]: https://www.cancer.gov/about-cancer/screening Centers for Disease Control and Prevention: https://www.cdc.gov/cancer/dcpc/prevention/screening.htm [place] [employer]: https://www.cancer.org/latest-news/1-ualvdu-qokumcixo-vriuq-sqi-kyu.html Contact a health care provider if: You [...] 03/04/2017 Document Revised: 02/24/2019 Document Reviewed: 03/04/2017 [employer] Patient Education 2020 [employer] Follow Up Care 02/05/2022 13:48:40 With:DEVONTE NOBLE, Lionel Burgos, [place] Address: [facility] [address] , [place] [address]- [id number] When: Unknown [facility] 05-24-2022 Hospital Discharge instructions Patient Education [...] Address: [facility] [address] [place] [address] [facility] (1) When: Unknown Comments:Keep scheduled appointment [facility]05-17-2022 Hospital Discharge instructions Patient Education 11/04/2021 [...] who: Are older than age 65. Are -[place]. Are obese. Have a family history of [...] cells. Follow these instructions at home: Take ydet-npz-pevwdoo and prescription medicines only as told by [...] 06/07/2006 Document Revised: 05/20/2018 Document Reviewed: 02/15/2017 [employer] Patient Education 2020 [employer]. Follow Up Care 10/14/2021 11:26:04 With:Lionel CARRINGTON MD, URL Address: [facility] [address] , [place] [address]- When: Unknown [facility] evaluation + Plan note Future Appointments Appointment Date:09/21/2022 09:45:00 AM Scheduled Provider:Lionel CARRINGTON MD [facility] Appointment Type:URO Office Visit [facility] evaluation + Plan note Future Appointments Appointment Date:03/09/2022 09:00:00 AM Scheduled Provider: Location:Care [facility]O Nurse Visit Appointment Date:04/15/2022 09:00:00 AM Scheduled Provider: Location:[facility] Appointment Type:URO Nurse Visit Appointment Date:09/21/2022 09:45:00 AM Scheduled Provider:Lionel CARRINGTON MD Location:[facility] [place] Appointment Type:URO Office Visit [facility] Evaluation + Plan note Future Appointments Appointment Date:03/09/2022 09:00:00 AM Scheduled Provider: Location:[facility] [place] Appointment Type:URO Nurse Visit Appointment Date:04/15/2022 09:00:00 AM Scheduled Provider: Location:[facility] [place] Appointment Type:URO Nurse Visit Appointment Date:09/21/2022 09:45:00 AM Scheduled Provider:Lionel CARRINGTON MD Location:[facility] [place] Appointment Type:URO Office Visit Diagnostic Tests Pending * [facility] Appointment Date:04/15/2022 09:00:00 AM Scheduled Provider: Location:[facility] [place] Appointment Type:URO Nurse Visit Appointment Date:09/21/2022 09:45:00 AM Scheduled Provider:Lionel CARRINGTON MD Location:[facility] [place] Appointment Type:URO Office Visit [facility] evaluation + Plan note Future Appointments Appointment Date:07/20/2022 10:00:00 AM Scheduled Provider: Location:[facility] Appointment Type:URO Nurse Visit Appointment Date:08/17/2022 10:00:00 AM Scheduled Provider: Location:[facility] [place] Appointment Type:URO Nurse Visit Appointment Date:09/21/2022 09:45:00 AM Scheduled Provider:Lionel CARRINGTON MD Location:[facility] [place] Appointment Type:URO Office Visit Diagnostic Tests Pending * UroVysion FISH ([facility]) [facility] Appointment Date:08/17/2022 10:00:00 AM Scheduled Provider: Location:[facility] [place] Appointment Type:URO Nurse Visit Appointment Date:09/21/2022 09:45:00 AM Scheduled Provider:Lionel CARRINGTON MD Location:[facility] Appointment Type:URO Office Visit [facility] Evaluation + Plan note Future Appointments Appointment Date:09/22/2022 02:00:00 PM Scheduled Provider: Location:[facility] Appointment Type:Urology CALL PAT FT Appointment Date:09/29/2022 11:15:00 AM Scheduled Provider: Location:[facility] Appointment Type:Urology FT [facility] evaluation + Plan note Future Appointments Appointment Date:09/22/2022 02:00:00 PM Scheduled Provider: Location:[facility] Appointment Type:Urology CALL PAT FT Appointment Date:09/29/2022 11:15:00 AM Scheduled Provider: Location:[facility] Appointment Type:Urology FT Diagnostic Tests Pending * Urine Cytology ([facility]) 09/21/22 [facility] evaluation + Plan note Future Appointments Appointment Date:10/04/2023 10:15:00 AM Scheduled Provider:Lionel CARRINGTON MD Location:[facility] Appointment Type:URO Office Visit Diagnostic Tests Pending * UroVysion Fish and Urine Cyto ([facility]) [facility] Appointment Date:10/04/2023 10:15:00 AM Scheduled Provider:Lionel CARRINGTON MD Location:[facility] Appointment Type:URO Office Visit [facility] Evaluation + Plan note Future Appointments Appointment Date:10/04/2023 10:15:00 AM Scheduled Provider:Lionel CARRINGTON MD Location:[facility] Appointment Type:URO Office Visit Diagnostic Tests Pending * UroVysion Fish and Urine Cyto ([facility]) [facility]23 [facility] Work Phone: History general Narrative - Reported* [...] KNEE SCOPE Surgical History L shoulder NAE -[facility] 2016 Hospitalization History FLU X2-3 DAYS Hospitalization History see surg. hx. [facility] [employer] Other Hospital course Narrative No data available for this section [facility] Hospital Discharge instructions No data available for this section [facility] progress note No data available for this section [facility] Chief Complaint and Reason for Visit [...] Diagnosis 1 Cervical spondylosis (M47.812) Referral Organization [facility] u[facility]gery Referring Provider First Name Zoran Referring Provider Last Name Scott Referring Provider Specialty Neurologica l Surgery Referred Organization [facility] Scheduling Referred Address [address], [place],[address] Referred Provider Specialty Physical The rapist Referral Priority Routine Reason evaluate and tr eat for neck and back pain Diagnosis 1 Cervical spondylosis (M47.812) Diagnosis 2 Low back pain, unspe cified (M54.50) Referral Organization [facility]gery Referring Provider First Name Zoran Referring Provider Last Name Scott Referring Provider Specialty Neurologica l Surgery Referred Organization [facility] Referred Provider Raoul Soriano Referred Address [address], [place],[address] Referred Provider Specialty Pain Medicin e Referral [...] and content) DATE CREATED AUTHOR 11/27/2022 [facility] DATE CREATED AUTHOR AUTHOR'S ORGANIZ ATION 01/02/2023 [facility] DATE CREATED AUTHOR AUTHOR'S ORGANIZ ATION 02/09/2023 [facility] DATE CREATED AUTHOR AUTHOR'S ORGANIZ ATION 06/28/2023 [facility] FOR RECORDS PERTAINING TO PATIENTS WHO ARE [...] BE BASED ON THE PRIMARY CLINICAL RECORDS. [employer] provides no warranty or guarantee of the accuracy or completeness of information in this document.
--- NOTE | 2023-07-26 13:46 | P.CN_ITS ---
Consult Note: HPI Data of Consult Patient: known to practice within the last 3 years Consult date: 07/26/23 Requesting Physician: Tamiko Landa MD Primary Care Provider: Deandre Staley MD Consult Narrative Reason for consult: Right neck pain Narrative: 73yom who presents today for right paracervical trigger point injections. 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 - Other specified disorders of bladder (ICD-10) Neck pain ?M54.2 - Cervicalgia (ICD-10) Low back pain ?M54.50 - Low back pain, unspecified (ICD-10) Osteoarthritis ?M19.90 - Unspecified osteoarthritis, unspecified site (ICD-10) Acid reflux ?K21.9 - Gastro-esophageal reflux disease without esophagitis (ICD-10) Hearing deficit ?H91.90 - Unspecified hearing loss, unspecified ear (ICD-10) Prostate cancer ?C61 - Malignant neoplasm of prostate (ICD-10) Former smoker ?Z87.891 - Personal history of nicotine dependence (ICD-10) Hypertension ?I10 - Essential (primary) hypertension (ICD-10) Surgical History History of colonoscopy ?Z98.890 - Other specified postprocedural states (ICD-10) History of arthroscopy of knee ?Z98.890 - Other specified postprocedural states (ICD-10) History of foot surgery ?Z98.890 - Other specified postprocedural states (ICD-10) History of appendectomy ?Z90.49 - Acquired absence of other specified parts of digestive tract (ICD- 10) History of hernia repair ?Z98.890 - Other specified postprocedural states (ICD-10) ?Z87.19 - Personal history of other diseases of the digestive system (ICD-10) S/P cystoscopy ?Z98.890 - Other specified postprocedural states (ICD-10) H/O transurethral resection of bladder tumor (TURBT) ?Z98.890 - Other specified postprocedural states (ICD-10) ?Z86.03 - Personal history of neoplasm of uncertain behavior (ICD-10) H/O transurethral resection of bladder tumor (TURBT) ?Z98.890 - Other specified postprocedural states (ICD-10) ?Z86.03 - Personal history of neoplasm of uncertain behavior (ICD-10) S/P cervical spinal fusion ?Z98.1 - Arthrodesis status (ICD-10) H/O prostatectomy ?Z90.79 - Acquired absence of other genital organ(s) (ICD-10) History of ankle surgery ?Z98.890 - Other specified postprocedural states (ICD-10) H/O shoulder surgery ?Z98.890 - Other specified postprocedural states (ICD-10) Family History Other Depression Family history of diabetes mellitus Family history of hypertension Social History Within the past year, how often did you have a drink containing alcohol: 2-4 times a month Smoking status: Former smoker Non-prescribed substance use: denies use Previous occupational history: retired Highest level of school completed/degree received: Associate degree: occupatio nal, technical, vocational program Meds Home Medications and Allergies Home Medications Medication Instructions Recorded Confirmed Type diclofenac sodium 75 mg 75 mg PO BID 11/20/22 03/15/23 History tablet,delayed release fluticasone fur. 100 mcg-umeclid 1 inh inhalation DAILY 11/20/22 03/15/23 History 62.5 mcg-vilant 25 mcg inhalat.powder (Trelegy Ellipta) pantoprazole 40 mg tablet,delayed 40 mg PO DAILY 11/20/22 03/15/23 History release hydrocodone 5 mg-acetaminophen 325 1 tab PO DAILY 01/28/23 03/15/23 History mg tablet amlodipine 5 mg tablet 5 mg PO DAILY 03/15/23 03/15/23 History methocarbamol 500 mg tablet mg PO QDAY 04/21/23 History hydrocodone 5 mg-acetaminophen 325 1 tab PO DAILY PRN pain #30 tabs 05/18/23 Rx mg tablet hydrocodone 5 mg-acetaminophen 325 1 tab PO .EVERYDAY PRN pain #30 07/12/23 Rx mg tablet tabs Allergies Allergy/AdvReac Type Severity Reaction Status Date / Time codeine Allergy Unknown Hives Verified 03/15/23 10:17 acetaminophen [From Percocet] AdvReac ineffective Verified 03/15/23 10:17 oxycodone [From Percocet] AdvReac ineffective Verified 03/15/23 10:17 Exam Narrative Exam Narrative: Psych-alert and oriented x 3.? Attentive and appropriate, constitutionally normal, displays normal mood and affect per situation.? There are no obvious deficits in memory, reasoning, or intellect.? Skin-no obvious rashes, bruising, or erythema noted to the patient's area of pain. Extremities-upper extremities are warm with minimal edema and palpable pulses. Cervical- tenderness to palpation noted in the cervical spine and paraspinal musculature.?Multiple trigger points expressed on palpation. Pain is elicited with extension, and lateral rotation of the cervical spine.? Range of motion is slightly diminished due to pain. ? Coordination remains intact.? Gait remains non-antalgic. Assessment and Plan Assessment and Plan (1) Myofascial pain: (2) Cervical spondylosis: Plan 73yom who presents for trigger point injection today. Risks and benefits reviewed, questions answered. We agree to proceed. Procedure: Right splenius capitis, sternocleidomastoid, trapezius trigger point injections Medications: Bupivacaine 0.25% 4cc, kenalog 40mg I explained the details of the procedure to the patient including the risks, benefits, and alternatives.? We had an informed discussion.? The patient verbalized understanding and signed the consent form.? All questions were answered appropriately.? A time-out was performed.? After obtaining a comfortable seated position, the skin overlying the right neck was prepped with alcohol 3 times.? The needle was inserted in a sterile manner towards the appropriate palpated trigger point. The contents of the syringe were gently injected without any resistance into the joint space after negative aspiration for blood or other bodily fluids. This was repeated in each muscle.? The needle was removed and pressure was applied at the injection site to decrease the incidence of ecchymosis and hematoma formation.? A sterile bandage was applied.
== END 2023-07-26 12:06 | disposition home or self-care (01) ==
LOC: PM 12:05
PROVIDERS: PCP Family Medicine; Visit Provider Anesthesiology
DX: M79.18 Myalgia, other site (principal); M47.812 Spondylosis without myelopathy or radiculopathy, cervical region
CPT/HCPCS: 20553; J1100; J2795

== ENCOUNTER 2023-08-05 10:54 | Outpatient (OUT) | payer MEDICARE, SELFPAY ==
--- NOTE | 2023-08-05 10:59 | XR_ITS ---
[facility] [place] [id number] Patient Name: MARY DIAZ MRN: [id number] date: 1950 Sex: M Assigned Patient Location: RAD Current Patient Location: [facility] Accession/Order Number: [id number] Exam Date: 08/05/2023 11:05 Report Date: 08/05/2023 15:41 At the request of: YOLANDE MONTERROSO Procedure: XR shoulder RT min 2V STUDY: XR shoulder RT min 2V, [id number] HISTORY: shoulder tendinitis, right M75.81 COMPARISON: Right shoulder x-rays 07/18/2020. FINDINGS: No acute fracture, dislocation, or suspicious osseous lesion. Rotator cuff bone anchor and biceps tenodesis anchor are present. Mild/moderate osteophyte is of the acromioclavicular joint, similar. Small focus of soft tissue calcification at the rotator cuff insertion is similar and could be the sequela of mild chronic calcific tendinitis. No significant osteoarthritis of the glenohumeral joint. XR/XR shoulder RT min 2V IMPRESSION: No acute fracture and no new or worsening osseous abnormality compared with 07/18/2020. Electronically authenticated by: LINDSAY BEARD Date: 08/05/2023 15:41
--- OUTSIDE RECORDS SUMMARY | 2023-08-05 11:09 | XMS_ITS | CCD ---
Author Name Unknown Address [address] [facility] [address] [place] [address] Organization [facility] Care Team Providers Care Day Care Worker Name Role Phone MD Yolande Staley Primary Care Provider [phone] MD Lionel Carrington Attending Provider [phone] Yolande Staley Primary Care Physician Leidy Plummer Unavailable Unavailable MD Yolande Staley Primary Care Provider [phone] MD Lionel Carrington Attending Provider [phone] Zoran Chavez Unavailable SHARON, DR VILLEGAS Admitting [...] Consulting Unavailable DR ZORAN CHAVEZ Consulting Unavailable HOY ., DR LANIER Consulting Unavailable HOY ., DR LANIER Admitting Unavailable HOReggie ., DR LANIER Primary Care Unavailable HOReggie ., DR LANIER Attending Unavailable RENITA ., DR FATEMEH Higginbotham Consulting Unavailable MAGGIE, DR SOCORRO Zapata Consulting Unavailable PARTHA HYATT Consulting Unavailable SCOTT, DR MEEHAN Attending Unavailable HOY ., DR LANEIR Primary Care Unavailable SCOTT, DR MEEHAN Admitting [...] Unavailable MD Yolande Staley Primary Care Provider [phone] MD Zoran Chavez Attending Provider CARRINGTON, Lionel [...] Drug Allergy 04-11-20 20 Itching, Itching agitated [facility] (20 sources) Codeine; 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: [Codeine] Drug Allergy 06-04-20 14 rash [facility] (7 sources) oxyCODONE; 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: [oxycodone] Drug Allergy 04-11-20 20 Itching, agitated [facility] (16 sources) Acetaminophen / oxyCODONE; 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: [acetaminophen-oxyc odone] Drug Allergy aggitation [facility] Comment on above: pt states this does not work for pt, pt is not allergic to vicodin (2 sources) cyclobenzaprine Drug Allergy itching [facility] Other (2 sources) HYDROcodone Drug Allergy anxiety [facility] Other (2 sources) tiZANidine Drug Allergy hives [facility] Other (3 sources) Acetaminophen / HYDROcodone; 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: [Vicodin] Drug Allergy [facility] (2 sources) Acetaminophen / oxyCODONE Drug Allergy [facility] (1 source) atorvastatin Drug Allergy [facility] (2 sources) tiZANidine Drug Allergy [facility] (1 source) Acetaminophen / oxyCODONE; 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: [Percocet 5/325] Drug Allergy [facility] Repository Medications Current Medications Medication Drug [...] Start: 09-19-2021 take 2 tablets by mo [facility] twice daily carvedilol 6.25 mg Tab 12.5 mg = 2 tab(s), Oral, BID, Refills(s) 0 Start Date: 09/19/21 Status: Ordered Start: 09-19-2021 carvedilol 6.2 5 mg Tab Refills(s) 0 Start Date: 09/19/21 Status: Ordered take 1 tablet by [facility] every twelve hours Carvedilol 12.5 MG 1 [...] 07, 2019 1:00am April 19, 2020 8:04am Sthfcntpyud-Neywrairs-Cixthx er (6 sources) Anticholinergic, Corticosteroid, beta2-Adrenergic Agonist Start: 08-07-2019 Uhzsdceyjrp-Lqqzqparq-Dtcubn er (Trelegy Ellipta) 100-62.5-25 mcg Blister With [...] procedure, # 2 tab(s), Refills(s) 0, Pharmacy: [facility]/pharmacy #[id number], 170, cm, 01/20/23 10:45:00 EDT, Height/Length Dosing, 83.5, kg, 01/20/23 10:45:00 EDT, Weight Dosing Start Date: 01/20/23 Status: Ordered Start: 12-31-2022 take 1 tablet by barry once daily Cipro 500 mg Tab 500 mg = 1 tab(s), Oral, Daily, Take 1 tablet the day before the procedure and 1 tablet after the procedure, # 6 tab(s), Refills(s) 0, Pharmacy: [facility]/pharmacy #[id number], 170, cm, 09/22/22 12:23:00 EDT, Height/Length Dosing, 78, kg, 02/24/22 10:53:00 EDT, W... Start Date: 12/31/22 Status: Ordered Start: 07-02-2022 take 1 tablet by barry once daily Cipro 500 mg Tab 500 mg = 1 tab(s), Oral, Daily, Take 1 tablet the day before the procedure and 1 tablet after the procedure, # 6 tab(s), Refills(s) 0, Pharmacy: [facility]/pharmacy #[id number], 170, cm, 02/24/22 10:53:00 [...] procedure, # 2 tab(s), Refills(s) 0, Pharmacy: [facility]/pharmacy #[id number], 170, cm, 11/05/21 11:37:00 [...] procedure, # 2 cap(s), Refills(s) 0, Pharmacy: [facility]/pharmacy #[id number], 188, cm, 02/10/23 14:22:00 [...] period., # 30 tab(s), Refills(s) 3, Pharmacy: [id number], 170, cm, 02/24/22 10:53:00 EDT, Height/Length Dosing, 78, kg, 02/24/22 10:53:00 EDT, Weight Dosing Start Date: 07/05/22 Status: Ordered Start: 09-19-2021 sildenafil 100 mg Tab 100 mg = 1 tab(s), Oral, Daily, Take 1 pill 30 minutes prior to sexual relations, # 30 tab(s), Refills(s) 3, Pharmacy: [id number], 170, cm, 09/19/21 10:16:00 [...] a surgery d one radical prostectomy at [facility] Cancer of prostate (20 sources) Personal [...] region] Episodic Other aftercare (1 source) 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 The diagnosis remains unchanged. Correction Notes - Performed By: #### 1 [id number] #### [facility] [address] [place] [address] Consent for Procedure/Surger yon 04-27-2023 Consent for Procedure/Surgery [id number]#1.0 0TIFF Normal [facility] Consent for Treatmenton Consent for Treatment [id number]#1.0 0TIFF Normal [facility] IntraOperative Documentson 1 06-27-2022 IntraOperative Documents [id number]#1.0 0TIFF Normal [facility] Main OR Intraoperative Recor don 04-27-2023 Main OR Intraoperative Record IntraOp Document Type FTURO Summary Primary Physician: Lionel CARRINGTON MD Finalized Date/Time: 04/27/23 11:02:57 Pt. Name: MARY DIAZ/Sex: 1950 Male Med Rec #: [id number] Physician: Lionel CARRINGTON MD Financial #: [id number] Pt. Type: O Room/Bed: / Admit/Disch: 04/27/23 [...] Nanci Luna Role Performed Surgeon - Primary Integration Software Engineer - Primary Scrub - Primary Time In [...] By: PAULINA Rene RN, Ruthann 04/27/23 11:02 [facility] Main OR Preoperative Recordo n 04-27-2023 Main OR Preoperative Record Holding Area Document Type FTURO Summary Primary Physician: Lionel CARRINGTON MD Finalized Date/Time: 04/27/23 10:26:02 Pt. Name: MARY DIAZ/Sex: 1950 Male Med Rec #: [id number] Physician: Lionel CARRINGTON MD Financial #: [id number] Pt. Type: O Room/Bed: / Admit/Disch: 04/27/23 [...] Complaints of Pain: No Skin Integrity Intact, [place], Warm, & Dry Vitals - EU Blood Pressure 167/96 Pulse 76 bpm Respirations 20 br/min SPO2 97 % Last Modified By: Avani Costello LPN 04/27/23 10:25:57 General Comments: Temp 36.7 Finalized By: Avani Costello LPN Document Signatures Signed By: Avani Costello LPN 04/27/23 10:26 Normal [facility] Operative Reporton Operative Report Patient: MARY [...] a surveillance cystoscopy in 6 months.. Normal [facility] Comment on above: Result Comment: Elec tronically Signed By: DEVONTE NOBLE, Lionel Ernandez\Date and Time Signed: 04/27/23 11:04 EST Outpatient Surgery Discharge Instructionon 04-27-2023 Outpatient Surgery Discharge Instruction [id number] 0TIFF Normal [facility] Reminderson 04-27-2023 Reminders - From: Loretta Simons To: EU - Recalls Devonte; Cc: Loretta Simons; Sent: 03/05/2023 14:06:16 EDT Show up: 07/22/2023 14:06:00 EST Subject: Cysto/fish/cytol, Due Date/Time: 08/09/2023 14:06:00 EST Reminder/Recall Patient is due in August 2023 for 4 month cysto/fish/cytol (bt ck), ? PSA Pt will be due in October 2023 for 6 month cysto Normal [facility] UroVysion Fish and Urine Cyt o ([facility])on 04-27-2023 [facility] Method of Extraction Voided Normal [facility] Comment on above: Performed By: #### 1 [id number] #### [facility] [address] [place] [address] [facility] Number of Jars 1 Invalid Interpretation Code [facility] Comment on above: Performed By: #### 1 [id number] #### [facility] [address] [place] [address] [facility] Specimen Urine Normal [facility] Comment on above: Performed By: #### 1 [id number] #### [facility] [address] [place] [address] [facility] Type of Service Technical Only [facility] Comment on above: Performed By: #### 1 [id number] #### [facility] [address] [place] [address] Outside Colonoscopyon 2022 Outside Colonoscopy [id number]#1.0 0CD:127 [facility] Reminderson 03-16-2023 Reminders - From: Stephanie Fletcher LPN To: GSN - Clinical; Sent: 03/16/2023 07:57:36 EDT Show up: 02/08/2028 07:00:00 EDT Subject: colonoscopy recall Due Date/Time: 03/10/2028 07:00:00 EDT Reminder/Recall Patient due for surveillance colonoscopy 03/10/2028 due to history of colonic polyps. [facility] Reminderson 03-05-2023 Reminders - From: Loretta [...] sched for 4 month cysto 04/27/23 at [facility]. He will be due in August 2023.LG new thread [facility] Consent for Procedure/Surger yon 02-11-2023 Consent for Procedure/Surgery [id number] CD:127 [facility] Ambulatory Visit Summaryon 0 02-10-2023 Ambulatory [...] NOBLE, Lionel Burgos Where: [facility] Lab Reportson 02-03-2023 Lab Reports [id number]#1.0 0CD:127 [facility] Physician Referralon 08-16-2 023 Physician Referral [id number] 0CD:127 Normal [facility] UroVysion Fish and Urine Cyt o ([facility])on 02-03-2023 [facility] UC Revision Information Invalid Interpretation Code [facility] Comment on above: Result Comment: Jimbo ection Reason -[ To Nur, 02/03/23 - 12:32 ] Corrected report issued to update PMS/PWS. The diagnosis remains unchanged. Correction Notes - Performed By: #### 1 [id number] #### [facility] [address] [place] [address] Lab Reportson 01-29-2023 Lab Reports [id number]#1.0 0CD:127 Normal [facility] Operative Reporton Operative Report [id number]#1.0 0CD:127 Normal [facility] Ambulatory Visit Summaryon 0 01-20-2023 Ambulatory [...] [place] Normal [address] [place] [address] [place] [address]- \.br\ You Need to Schedule the Following Appointments\.b r\ Follow Up with DEVONTE NOBLE, Lionel Burgos, URL When: \.br\ Comments:\.br\ sched cysto\.br\ Where:\.br\ [facility] [address]\.br\ [place] [address]-\.br\ [phone]\.br\ Medications\.br \ What How Much When Instructions\.b r\ New ciprofloxacin (Cipro 500 mg Tab) 1 Tablets By Mouth Every day take one tab day before procedure and one tab after procedure Pickup at [facility]/pharmacy #[id number]\.br\ Unchanged sildenafil (sildenafil 100 mg Tab) 1 [...] questions or concerns \.br\ Pharmacy Information\.br \ [facility]/pharmacy #[id number]: [address], [place] [id number] [phone]\.br\ Allergies\.br\ Percocet 5/325\.br\ codeine (hives/rashes)\ .br\ Problems\.br\ [...] these instructions at home:\.br\ ? \.br\ Take dpji-fdx-xxmkma r and prescription medicines only as told [...] to find more information\.br \ ? \.br\ [employer] (ACS): cancer.org\.br\ ? \.br\ National Cancer Webster (NCI): cancer.gov\.br\ Contact a health care provider [...] based on the stage of your cancer.\.br\ [facility] Ambulatory Visit Summary MARY DIAZ :1950 [...] Normal [address] [place] [address]- \.br\ You Need to Schedule the Following Appointments\.b r\ Follow Up with DEVONTE NOBLE, Lionel Burgos, URL When: \.br\ Comments:\.br\ sched cysto\.br\ Where:\.br\ [facility] [address]\.br\ [place] [address]-\.br\ [phone]\.br\ Medications\.br \ What How Much When Instructions\.b [...] these instructions at home:\.br\ ? \.br\ Take ooym-ood-gjylcp r and prescription medicines only as told [...] to find more information\.br \ ? \.br\ [employer] (ACS): cancer.org\.br\ ? \.br\ National Cancer Webster (NCI): cancer.gov\.br\ Contact a health care provider [...] to you by your health care pro [facility] Pathology Noteon 01-20-2023 Pathology Note [id number] 0CD:127 Normal [facility] Patient Educationon 01-21-20 23 Patient Education [...] Follow these instructions at home: ? Take glnw-iet-naezods and prescription medicines only as told by [...] important. Where to find more information ? [employer] (ACS): cancer.org ? National Cancer Webster (NCI): cancer.gov Contact a health care provider [...] have wi (more content not included)... Normal [facility] Urology Office/Clinic Noteon 01-20-2023 Urology Office/Clinic Note [...] [facility] [address], [place] [phone] Additional Instructions: sched cysto Patient Education Bladder [...] of th (more content not included)... Normal [facility] Comment on above: Result Comment: Elec tronically Signed By: Lionel CARRINGTON MD\.br\Date and Time Signed: 01/20/23 11:40 EDT\.br\Electronically Co-Signed By: Lilo Zhou\.br\Date and Time Co-Signed: 01/20/23 11:37 EDT Lab Reportson 01-11-2023 Lab Reports [id number] 0CD:127 Normal [facility] Consent for Procedure/Surger yon 01-05-2023 Consent for Procedure/Surgery [id number]. 00CD:127 [facility] Consent for Treatmenton 12-19 Consent for Treatment [id number] 0CD:127 [facility] IntraOperative Documentson 0 01-05-2023 IntraOperative Documents [id number]. 00CD:127 [facility] Main OR Intraoperative Recor don 01-05-2023 Main OR Intraoperative Record IntraOp Document Type FTURO Summary Primary Physician: Lionel CARRINGTON MD Finalized Date/Time: 01/05/23 10:57:53 Pt. Name: EMILY MARY Verma/Sex: 1950 Male Med Rec #: [id number] Physician: Lionel CARRINGTON MD Financial #: [id number] Pt. Type: O Room/Bed: / Admit/Disch: 01/05/23 [...] Zora Luna Role Performed Surgeon - Primary Integration Software Engineer - Primary Scrub - Primary Time In [...] RN, Ruthann Document Signatures Signed By: PAULINA Rnee RN, Ruthann 01/05/23 10:51 PAULINA Rene RN, Ruthann 01/05/23 10:57 Normal [facility] Main OR Preoperative Recordo n 01-05-2023 Main OR Preoperative Record Holding Area Document Type FTURO Summary Primary Physician: Lionel CARRINGTON MD Finalized Date/Time: 01/05/23 10:43:08 Pt. Name: MARY DIAZ/Sex: 1950 Male Med Rec #: [id number] Physician: Lionel CARRINGTON MD Financial #: [id number] Pt. Type: O Room/Bed: / Admit/Disch: 01/05/23 [...] Edgard ZELAYA, Cheryl GALLARDO 01/05/23 10:43 Normal [facility] Operative Reporton Operative Report Patient: MARY [...] tumor has developed in these areas.. Normal [facility] Comment on above: Result Comment: Elec tronically Signed By: DEVONTE NOBLE, Lionel Gama.tacos\Date and Time Signed: 01/05/23 10:59 EDT UroVysion Fish and Urine Cyt o ([facility])on 01-05-2023 [facility] Method of Extraction Bladder Wash Normal [facility] Comment on above: Performed By: #### 1 [id number] #### [facility] [address] [place] [address] [facility] Number of Jars 1 Invalid Interpretation Code [facility] Comment on above: Performed By: #### 1 [id number] #### [facility] [address] [place] [address] [facility] Specimen Urine Normal [facility] Comment on above: Performed By: #### 1 [id number] #### [facility] [address] [place] [address] [facility] Type of Service Technical Only Normal [facility] Comment on above: Performed By: #### 1 [id number] #### [facility] [address] [place] [address] MR lumbar spine wo [facility] MR lumbar spine wo [facility] Main [address] [address] MRI Report Signed Patient: Mary Diaz MR#: [id number] : 1950 Acct:[id number] Age/Sex: 72 / M ADM Date: 01/01/23 Loc: MR Room: Type: [facility] Attending Dr: Zoran Chavez MD Copies [...] Jamaica Alas M.D.01/01/2023 2:48 PM Dictation Location: [facility] Transcribed By: [facility] 01/01/23 144 Dictated By: Jamaica Alas II, MD 01/01/23 144 Signed By: 01/01/23 144 [facility] Retail - Clinical Noteon Retail - Clinical Note [id number] 0CD:127 Normal [facility] XR CSPINE MIN 4 VIEWSon XR CSPINE [...] by: ALLI CORTES Date: 2022-10-23 11:53 Normal [facility] XR LSPINE W_OBLS AND FLEX_EX Ton [...] JAMAICA CARLOS Date: 2022-10-23 13:18 Normal [facility] BNPon 10-06-2022 Natriuretic peptide B (Bld) [Mass/Vol] 844.0 pg/mL Normal <=900.0 [facility] Comment on above: Performed By: #### C VDTB #### [facility] [address] [place] [address] Dr. Johnna Dixon CBC AUTO DIFFon 10-06-2022 BASO # 0.0 103/ul Normal 0.0-0.1 [facility] Comment on above: Performed By: #### C BC #### [facility] [address] [place] [address] Dr. Johnna Dixon Basophils/100 WBC (Bld) 0.0 % Critically low 0.2-2.0 [facility] Comment on above: Performed By: #### C BC #### [facility] [address] [place] [address] Dr. Johnna Dixon EO # 0.0 103/ul Normal 0.0-0.7 [facility] Comment on above: Performed By: #### C BC #### [facility] [address] [place] [address] Dr. Johnna Dixon Eosinophils/100 WBC (Bld) 0.0 % Critically low 0.9-7.0 [facility] Comment on above: Performed By: #### C BC #### [facility] [address] [place] [address] Dr. Johnna Dixon Erythrocyte distribution width (RBC) [Ratio] 13.9 % Normal 11.0-15.0 [facility] Comment on above: Performed By: #### C BC #### [facility] [address] [place] [address] Dr. Johnna Dixon Hematocrit (Bld) [Volume fraction] 33.6 % Critically low 42.0-54.0 [facility] Comment on above: Performed By: #### C BC #### [facility] [address] [place] [address] Dr. Johnna Dixon Hemoglobin (Bld) [Mass/Vol] 11.1 g/dL Critically low 14.0-18.0 [facility] Comment on above: Performed By: #### C BC #### [facility] [address] [place] [address] Dr. Johnna Dixon IG # 0.03 10e3/ul Normal 0.00-0.03 [facility] Comment on above: Performed By: #### C BC #### [facility] [address] [place] [address] Dr. Johnna Dixon IG % 0.5 % Normal 0.0-0.5 [facility] Comment on above: Performed By: #### C BC #### [facility] [address] [place] [address] Dr. Johnna Dixon LYMPH # 0.7 103/ul Critically low 1.2-3.8 [facility] Comment on above: Performed By: #### C BC #### [facility] [address] [place] [address] Dr. Johnna Dixon Lymphocytes/100 WBC (Bld) 11.5 % Critically low 20.5-60.0 [facility] Comment on above: Performed By: #### C BC #### [facility] [address] [place] [address] Dr. Johnna Dixon MANUAL DIFF REQ NO Normal [facility] Comment on above: Performed By: #### C BC #### [facility] [address] [place] [address] Dr. Johnna Dixon MCH (RBC) [Entitic mass] 31.0 pg Normal 25.9-34.0 [facility] Comment on above: Performed By: #### C BC #### [facility] [address] [place] [address] Dr. Johnna Dixon MCHC (RBC) [Mass/Vol] 33.0 g/dL Normal 29.9-35.2 [facility] Comment on above: Performed By: #### C BC #### [facility] [address] [place] [address] Dr. Johnna Dixon MCV (RBC) [Entitic vol] 93.9 fL Normal 80.0-94.0 [facility] Comment on above: Performed By: #### C BC #### [facility] [address] [place] [address] Dr. Johnna Dixon MONO # 0.3 103/ul Normal 0.3-0.8 [facility] Comment on above: Performed By: #### C BC #### [facility] [address] [place] [address] Dr. Johnna Dixon Monocytes/100 WBC (Bld) 4.5 % Normal 1.7-12.0 [facility] Comment on above: Performed By: #### C BC #### [facility] [address] [place] [address] Dr. Johnna Dixon NEUT # 5.0 103/ul Normal 1.4-6.5 [facility] Comment on above: Performed By: #### C BC #### [facility] [address] [place] [address] Dr. Johnna Dixon Neutrophils/100 WBC (Bld) 83.5 % Critically high 43.0-75.0 [facility] Comment on above: Performed By: #### C BC #### [facility] [address] [place] [address] Dr. Johnna Dixon Platelet mean volume (Bld) [Entitic vol] 10.3 fL Normal 9.5-13.5 [facility] Comment on above: Performed By: #### C BC #### [facility] [address] [place] [address] Dr. Johnna Dixon PLT 184 103/ul Normal 150-450 [facility] Comment on above: Performed By: #### C BC #### [facility] [address] [place] [address] Dr. Johnna Dixon RBC 3.58 106/ul Critically low 4.70-6.10 [facility] Comment on above: Performed By: #### C BC #### [facility] [address] [place] [address] Dr. Johnna Dixon WBC 6.0 103/ul Normal 4.0-11.0 [facility] Comment on above: Performed By: #### C BC #### [facility] [address] [address] [address] Johnna Dixon PROF 14(COMP METB)on 023 Albumin [Mass/Vol] 2.7 g/dL Critically low 3.4-5.0 [facility] Comment on above: Performed By: #### C VDTBH #### [facility] [address] [place] [address] Dr. Johnna Dixon Albumin/Globulin [Mass ratio] 0.9 {ratio} Normal [facility] Comment on above: Performed By: #### C VDTBH #### [facility] [address] [place] [address] Dr. Johnna Dixon ALP [Catalytic activity/Vol] 32 U/L Critically low 46-116 [facility] Comment on above: Performed By: #### C VDTBH #### [facility] [address] [place] [address] Dr. Johnna Dixon ALT [Catalytic activity/Vol] 19 U/L Normal 16-63 [facility] Comment on above: Performed By: #### C VDTBH #### [facility] [address] [place], [place] [address] Dr. Johnna Dixon Anion gap [Moles/Vol] 14.0 mmol/L Normal [facility] Comment on above: Performed By: #### C VDTBH #### [facility] [address] [place] [address] Dr. Johnna Dixon AST [Catalytic activity/Vol] 12 U/L Critically low 15-37 [facility] Comment on above: Performed By: #### C VDTBH #### [facility] [address] [place] [address] Dr. Johnna Dixon Bilirubin [Mass/Vol] 0.6 mg/dL Normal 0.2-1.0 [facility] Comment on above: Performed By: #### C VDTBH #### [facility] [address] [place] [address] Dr. Johnna Dixon Calcium [Mass/Vol] 8.3 mg/dL Critically low 8.5-10.1 Th [facility] Comment on above: Performed By: #### C VDTBH #### [facility] [address] [place] [address] Dr. Johnna Dixon Chloride [Moles/Vol] 107 mmol/L Normal 98-107 [facility] Comment on above: Performed By: #### C VDTBH #### [facility] [address] [place] [address] Dr. Johnna Dixon CO2 [Moles/Vol] 24.9 mmol/L Normal 21.0-32.0 [facility] Comment on above: Performed By: #### C VDTBH #### [facility] [address] [place] [address] Dr. Johnna Dixon Creatinine [Mass/Vol] 1.20 mg/dL Normal 0.70-1.30 [facility] Comment on above: Performed By: #### C VDTBH #### [facility] [address] [place] [address] Dr. Johnna Dixon EGFR-AF BRITISH >60 Normal >=60 [facility] Comment on above: Performed By: #### C VDTBH #### [facility] [address] [place] [address] Dr. Johnna Dixon EGFR-NON AF BRITISH 60 mL/min/1.73m2 Normal >=60 [facility] Comment on above: Performed By: #### C VDTBH #### [facility] [address] [place] [address] Dr. Johnna Dixon Globulin (S) [Mass/Vol] 2.9 g/dL Normal [facility] Comment on above: Performed By: #### C VDTBH #### [facility] [address] [place] [address] Dr. Johnna Dixon Glucose [Mass/Vol] 153 mg/dL Critically high 74-[address] [facility] Comment on above: Performed By: #### C VDTBH #### [facility] [address] [place] [address] Dr. Johnna Dixon Potassium [Moles/Vol] 3.9 mmol/L Normal 3.5-5.1 [facility] Comment on above: Performed By: #### C VDTBH #### [facility] [address] [place] [address] Dr. Johnna Dixon Protein [Mass/Vol] 5.6 g/dL Critically low 6.4-8.2 Th e [facility] Comment on above: Performed By: #### C VDTBH #### [facility] [address] [place] [address] Dr. Johnna Dixon Sodium [Moles/Vol] 142 mmol/L Normal 136-145 [facility] Comment on above: Performed By: #### C VDTBH #### [facility] [address] [place] [address] Dr. Johnna Dixon Urea nitrogen [Mass/Vol] 14.0 mg/dL Normal 7.0-18.0 [facility] Comment on above: Performed By: #### C VDTBH #### [facility] [address] [place] [address] Dr. Johnna Dixon Urea nitrogen/Creatinine [Mass ratio] 11.7 mg/mg Normal [facility] Comment on above: Performed By: #### C VDTBH #### [facility] [address] [place] [address] Dr. Johnna Dixon CBC AUTO DIFFon 10-05-2022 BASO # 0.0 103/ul Normal 0.0-0.1 [facility] Comment on above: Performed By: #### S PUTGS #### [facility] [address] [place] [address] Dr. Johnna Dixon Basophils/100 WBC (Bld) 0.2 % Normal 0.2-2.0 [facility] Comment on above: Performed By: #### S PUTGS #### [facility] [address] [place] [address] Dr. Johnna Dixon EO # 0.0 103/ul Normal 0.0-0.7 [facility] Comment on above: Performed By: #### S PUTGS #### [facility] [address] [place] [address] Dr. Johnna Dixon Eosinophils/100 WBC (Bld) 0.2 % Critically low 0.9-7.0 [facility] Comment on above: Performed By: #### S PUTGS #### [facility] [address] [place] [address] Dr. Johnna Dixon Erythrocyte distribution width (RBC) [Ratio] 14.1 % Normal 11.0-15.0 [facility] Comment on above: Performed By: #### S PUTGS #### [facility] [address] [place] [address] Dr. Johnna Dixon Hematocrit (Bld) [Volume fraction] 39.9 % Critically low 42.0-54.0 [facility] Comment on above: Performed By: #### S PUTGS #### [facility] [address] [place] [address] Dr. Johnna Dixon Hemoglobin (Bld) [Mass/Vol] 12.8 g/dL Critically low 14.0-18.0 [facility] Comment on above: Performed By: #### S PUTGS #### [facility] [address] [place] [address] Dr. Johnna Dixon IG # 0.01 10e3/ul Normal 0.00-0.03 [facility] Comment on above: Performed By: #### S PUTGS #### [facility] [address] [place] [address] Dr. Johnna Dixon IG % 0.2 % Normal 0.0-0.5 [facility] Comment on above: Performed By: #### S PUTGS #### [facility] [address] [place] [address] Dr. Johnna Dixon LYMPH # 0.7 103/ul Critically low 1.2-3.8 [facility] Comment on above: Performed By: #### S PUTGS #### [facility] [address] [place] [address] Dr. Johnna Dixon Lymphocytes/100 WBC (Bld) 14.3 % Critically low 20.5-60.0 [facility] Comment on above: Performed By: #### S PUTGS #### [facility] [address] [place] [address] Dr. Johnna Dixon MANUAL DIFF REQ NO Normal [facility] Comment on above: Performed By: #### S PUTGS #### [facility] [address] [place] [address] Dr. Johnna Dixon MCH (RBC) [Entitic mass] 30.7 pg Normal 25.9-34.0 [facility] Comment on above: Performed By: #### S PUTGS #### [facility] [address] [place] [address] Dr. Johnna Dixon MCHC (RBC) [Mass/Vol] 32.1 g/dL Normal 29.9-35.2 [facility] Comment on above: Performed By: #### S PUTGS #### [facility] [address] [place] [address] Dr. Johnna Dixon MCV (RBC) [Entitic vol] 95.7 fL Critically high 80.0-94.0 [facility] Comment on above: Performed By: #### S PUTGS #### [facility] [address] [place] [address] Dr. Johnna Dixon MONO # 0.6 103/ul Normal 0.3-0.8 [facility] Comment on above: Performed By: #### S PUTGS #### [facility] [address] [place] [address] Dr. Johnna Dixon Monocytes/100 WBC (Bld) 12.5 % Critically high 1.7-12.0 [facility] Comment on above: Performed By: #### S PUTGS #### [facility] [address] [place] [address] Dr. Johnna Dixon NEUT # 3.6 103/ul Normal 1.4-6.5 [facility] Comment on above: Performed By: #### S PUTGS #### [facility] [address] [place] [address] Dr. Johnna Dixon Neutrophils/100 WBC (Bld) 72.6 % Normal 43.0-75.0 [facility] Comment on above: Performed By: #### S PUTGS #### [facility] [address] [place] [address] Dr. Johnna Dixon Platelet mean volume (Bld) [Entitic vol] 9.5 fL Normal 9.5-13.5 [facility] Comment on above: Performed By: #### S PUTGS #### [facility] [address] [place] [address] Dr. Johnna Dixon PLT 213 103/ul Normal 150-450 [facility] Comment on above: Performed By: #### S PUTGS #### [facility] [address] [place] [address] Dr. Johnna Dixon RBC 4.17 106/ul Critically low 4.70-6.10 [facility] Comment on above: Performed By: #### S PUTGS #### [facility] [address] [place] [address] Dr. Johnna Dixon WBC 5.0 103/ul Normal 4.0-11.0 [facility] Comment on above: Performed By: #### S PUTGS #### [facility] [address] [place] [address] Dr. Johnna Dixon CULTURE BLOODon 10-05-2022 Microscopic examination of blood, culture Culture Observations: NO GROWTH AT 5 DAYS. Normal [facility] Comment on above: Performed By: #### B LDCX2 #### [facility] [address] [place] [address] Dr. Johnna Dixon Microscopic examination of blood, culture Culture Observations: NO GROWTH AT 5 DAYS. Normal [facility] Comment on above: Performed By: #### S PUTGS #### [facility] [address] [place] [address] Dr. Johnna Dixon CULTURE SPUTUMon 10-05-2022 CULTURE SPUTUM Culture Observations : NORMAL RESPIRATORY JONATAN. Normal [facility] Comment on above: Performed By: #### S PUTGS #### [facility] [address] [place] [address] Dr. Johnna Dixon [facility] SARS-CoV-2 (COVID-19) RNA REX+probe Ql (Unsp spec) Not detected Normal NOT DETECTED [facility] Comment on above: Result Comment: This test is not yet approved or cleared by the [place] FDA. When there are no FDA-approved or cleared tests available, and other criteria are met, FDA can make tests available under an emergency access mechanism called an Emergency Use Authorization (EUA). The EUA for this test is supported by the [place] of Health and Human Service's (HHS's) declaration [...] SARS-CoV-2. Performed By: #### C VDTB #### [facility] [address] [place] [address] Dr. Johnna Dixon LACTATE/LACTIC ACIDon 2022 Lactate [Moles/Vol] 1.2 mmol/L Normal 0.4-2.0 [facility] Comment on above: Performed By: #### L ACT #### [facility] [address] [place] [address] Dr. Johnna Dixon Lactate [Moles/Vol] 2.4 mmol/L Critically high 0.4-2.0 [facility] Comment on above: Performed By: #### L ACT #### [facility] [address] [place] [address] Dr. Johnna Dixon Lab Reportson 10-05-2022 Lab Reports [id number] 0CD:127 Normal [facility] PROF CHEM 8 (BAS METB)on Anion gap [Moles/Vol] 12.6 mmol/L Normal [facility] Comment on above: Performed By: #### B MP #### [facility] [address] [place] [address] Dr. Johnna Dixon Calcium [Mass/Vol] 8.9 mg/dL Normal 8.5-10.1 [facility] Comment on above: Performed By: #### B MP #### [facility] [address] [address] [address] Johnna Dixon Chloride [Moles/Vol] 106 mmol/L Normal 98-107 [facility] Comment on above: Performed By: #### B MP #### [facility] [address] [address] [address] Johnna Dixon CO2 [Moles/Vol] 25.8 mmol/L Normal 21.0-32.0 [facility] Comment on above: Performed By: #### B MP #### [facility] [address] [address] [address] Johnna Dixon Creatinine [Mass/Vol] 1.41 mg/dL Critically high 0.70-1.30 [facility] Comment on above: Performed By: #### B MP #### [facility] [address] [place] [address] Dr. Johnna Dixon EGFR-AF BRITISH >60 Normal >=60 [facility] Comment on above: Performed By: #### B MP #### [facility] [address] [place] [address] Dr. Johnna Dixon EGFR-NON AF BRITISH 50 mL/min/1.73m2 Critically low >=60 [facility] Comment on above: Performed By: #### B MP #### [facility] [address] [address] [address] Johnna Dixon Glucose [Mass/Vol] 111 mg/dL Critically high 74-106 [facility] Comment on above: Performed By: #### B MP #### [facility] [address] [address] [address] Johnna Dixon Potassium [Moles/Vol] 3.4 mmol/L Critically low 3.5-5.1 [facility] Comment on above: Performed By: #### B MP #### [facility] [address] [place] [address] Dr. Johnna Dixon Sodium [Moles/Vol] 141 mmol/L Normal 136-145 [facility] Comment on above: Performed By: #### B MP #### [facility] [address] [address] [address] Johnna Dixon Urea nitrogen [Mass/Vol] 17.0 mg/dL Normal 7.0-18.0 [facility] Comment on above: Performed By: #### B MP #### [facility] [address] [address] [address] Johnna Dixon Urea nitrogen/Creatinine [Mass ratio] 12.1 mg/mg Normal [facility] Comment on above: Performed By: #### B MP #### [facility] [address] [address] [address] Johnna Dixon SPUTUM GRAM STAINon 10-06-19 COMMENTS Normal [facility] Comment on above: Performed By: #### S PUTGS #### [facility] [address] [place] [address] Dr. Johnna Dixon DIPHTHEROIDS Normal [facility] Comment on above: Performed By: #### S PUTGS #### [facility] [address] [address] [address] Johnna Dixon EPITHELIALS <25 Normal [facility] Comment on above: Performed By: #### S PUTGS #### [facility] [address] [address] [address] Johnna Dixon FUNGAL ELEMENTS Normal [facility] Comment on above: Performed By: #### S PUTGS #### [facility] [address] [address] [address] Johnna Dixon GRAM NEG BACILLI FEW Normal [facility] Comment on above: Performed By: #### S PUTGS #### [facility] [address] [address] [address] Johnna MILLS NEG DIPPLOCOCCI Normal [facility] Comment on above: Performed By: #### S PUTGS #### [facility] [address] [place] [address] Dr. Johnna Dixon GRAM POS BACILLI Normal [facility] Comment on above: Performed By: #### S PUTGS #### [facility] [address] [place] [address] Dr. Johnna Dixon GRAM POSITIVE COCCI FEW Normal [facility] Comment on above: Performed By: #### S PUTGS #### [facility] [address] [place] [address] Dr. Johnna Dixon WBC (Bld) [#/Vol] 10*3/uL Normal [facility] Comment on above: Performed By: #### S PUTGS #### [facility] [address] [place] [address] Dr. Johnna Dixon SYMPTOMATIC COVID-19 ANTIGEN on 10-05-2022 EUA Statement SEE BELOW Normal [facility] Comment on above: Result Comment: This [...] sooner. Performed By: #### C VDAGS #### [facility] [address] [place] [address] Dr. Johnna Dixon SARS-CoV-2 (COVID-19) RNA REX+probe Ql (Unsp spec) Negative Normal NEGATIVE [facility] Comment on above: Performed By: #### C VDAGS #### [facility] [address] [place] [address] Dr. Johnna Dixon XR CHEST 1 Von [...] SOCORRO SERRANO Date: 2022-10-05 11:44 Normal [facility] Coding Summary.on 10-01-2022 Coding Summary. CD:[id number] Ww +PGhlYWQ+[id number] CPobL0nG3HOFDmYJkhnMNQ BXLeSFmEckzJyIH9bmDClA XJu IC8+IC2hHMDyUakvdAIca8 D9oJR4A82axo9bPOmolKU3 UMJcVkDufogrc0nrjFl4DJ cuNmluOyBt OOKkdL84AIE9oO03Gi83wT UbfOJfb2dvzRk1PeHsKDVk WUI9gWteHDzsf2PuBSTmA9 2uaEWox8H4 YPPyeZokzBMzOxOkhPS4qF 3hQUgpbxlsd6jslznfEai7 gg61xXZkz3V6vPB8J3Xyng E3JWDcpGJh TstttEFKrC1kxpgyw7wuzl wiVpCmZGAgOVb3ZYr4UWUu yBpoTcUsKL96VBO5RAQbax TnC7DzVUZc mCeoDyJ7l7F3Ny2ZR5ENXs slZ8BUYQSOTIpbgNW+PC90 ge11E5YpWskxWro1CEHbDY I7yZT9wM2g AQTiJDamh2M1xNE4X8Ietn Qofk7nb8ttAOWqRBbtA65v nNRnf7C2RIHhxWH6HQAycG uiDzYhkU85 Oyc+BCHrhWzwq8EwFnuwq0 rli1najMq6YaiqETAefyDi eWzsBKT6f0VcBr2pZCXmvG D7pPI8jC1t FdYpJgY1PQllC979LeBgeV RhRfkbH02uH3NsjML+PHRy Ccy2KAUgjAbgII8yR9SsBP RpbmctbGVm pZotAH5vBXCfaomvTGWkwD 3gWNUiX8l7XbEcHyB8QOim L2UuYQDrfhvcLv30wZ1eId QmBaX9GCxe E3UzbqV3KKXrgMFtCUziRY F6I48lk9T9RRPzGWAiLHL2 bZY3kP0yoYxtoagzsGUelX sgdmVydGlj ULhlJKpeT558UWLsnPcrAa NvZGluZyBEYXRlOiAgMDQv MTMvMjAyMzwvdGQ+PHRkIH R3cBevYWXv mTIfLApuFk6bsBnucYcqQY 6jATSpqygeLXBuhP9aQWYq eBQkjZgpIT9mCFVgtdawc3 07RcBlABH9 YMThjDLsV8CovL9fNzPcCP MpSAOdR9TwhCFlYVfwE741 THfdZgJ1NGFjpoUgL5BiZB FsaWduOiB0 f4P6Xf9Le3SkuytwC6SbwH SmVxYsBvnuUIu9E3NzDtqa dHI+AR25KAYcPC83TZj2MF B2xDkeWXaw MKQjE1UvmM8mKqQsDUUzWR RkOyc+PHRhYmxlIHdpZHRo MGnqHLDyAxHmwCtxQD7oIu 9yZGVyLWNv kIjatFZxAhZwi0rgJUEkZV vzHJ7yoQdbG7CibLX4GFWk m8w6Ng90D53aN1HfiLG+PG RpdAU5wUS0 tH6sDgTtGuX4LHagZ569Mq PdtTCpUrctl1nib9uxyRu6 ZfP1GMQmypGlkOguKBS4a5 RtKk58T45s IHdpZHRoPSIxNSUiIHZhbG kllq6rmN6kLr1+PGNvbCB3 lZC1yW4tIvGaGmJ7UKegQ0 49InRvcCIv Igmlb2kwx0jugCq5LqFpDG NpniAwdEctBYT2a0PfCm59 K6AzsKtdo0PtJnx0uu20sZ Ptr9X6uBG3 O8TnQZXflpeftRDlaXwnDU 3rBEWxzxsqSOIndE3bIAFy R8f1UnKzDqB7YZhdV7Xxde O8HVAtaSKz QEFsyAELhP5jlcnbc3vjvx gpTtTxCGHjVDy7LSw3FQDd uXgpDoKvLSY4IaE4IJU3jS VlwJ4qsRhk nwccmN7pPef+GQF3yWJmgJ MOMV3hYyndgXC+PHRkIHN0 gGpfSHqaJHMaeY7dJKLiY1 q5PqTxQyG8 AUebO0LtmgO5AGGseLDwFI EhlEGRoZ2ztarqj9ecqpuj GzIxYOFpJNw4GOx3EBFjjB duOiBsZWZ0 LuR4ADH9wJOnqU4ssDrimw ileO1nJbb+QmlydGggRGF0 NUw8U2RlUnf7GKAesEalMF 0ncGFkZGlu Rb7hdJwswOdxND1yXFFoln dqp026FwMhh4exJMVlbPZs ZRulPAX5X85jh6Q5WDGuTZ UlNGR6bHY5 lK4loJjiveymaXDhfDhzrc WunAooKSazNHosG076JHQp tLbePgEvGNg5P7ZkJjs4CQ RxpHjeOT5z sHAoVLbcCi9qcFevyIsgKK 7mZRMlvbyzk223PeUqg2kb HKKdeYClKHseWNF3D10oe8 F9HAOsFGKl SAC8zOH4iP4jvIgjujqjmB VmdDsgdmVydGljYWwtYWxp V796VUQstLnaMwEfrNp8I3 PuDmz0VDNk kPfmPO9tcPKeEUijMd0vwE zlzTkfWT5qCDRbmetnm563 QyUbk7rbCJQadZIoKAqnSR G0V17ol3R7 DBJkEGGgEAT7iYJ5mA4glM lnbjogbGVmdDsgdmVydGlj KAhtJVgsM246ZZJtvClpBc BhdGllbnQg ZAxvNFa7I3ZpZswqdZK+PC 47KFZuRP22kVUemGUyu3fe tBv1FqEqUSNnGMG7mXorQY pht7XuCFTr C12ywLNzn7G2KOIsxGcowL XjSeCtzRK5yN5aTVmctdzi s4hkrwrzFfolo5wfka94gC 13V11rTZaz ZHRoPSIzMCUiIHZhbGlnbj 5skD4qEz9+XNOazWB3zWL1 yW1mYWEdCxA6DIipI655Ey RvcCIvPjxj h6hfy7bojJc0QrJ3SCMinn FoqUenFYS9u6VqXt85Y98y IHdpZHRoPSIyMCUiIHZhbG wtdg6qrT4f Ii8+RJAuvJN9qVE4nC8mIs KxDhI5RCgiC792InOoiBCq AjylK82mO5EhsYH+PHRyPj x0WKJicTpt XE3btZUcCAqyBr4eRFH7Wy XdFzXnANjhA3LnBRGlrnfp mtessYL9UCAcGFQzeQ70Bg 9udDogMTBw tPALoE0sfqwjj9xjngarYy FpQQFcUIp7TTy7NGZfeHkv PeWyKFC8XyE0OIX7bRAknZ 1hbGlnbjog tJ8uU1UvSHYindjlWv99qS 8xFcAdKjD0FOafRkf+S0xJ UqmUXVBtSXgBYCTFCD57Y7 MkTit0HDMv yLknQO0xiZHpOXvgWx0hmZ kzxEdkCW3nHSBlsynjLNCi qI2pRTDfjTIydAprIK9sUJ Yfnpbqv163 DsUpYCL9TVNbvLZxX0CxmY 1hNqRkBXTyYVRcE3AgkYCs XAlbW476LHqqKfF5VSXhwb GsL3ExLPIj zRvrZeW1h1L0Sx6ePI0tCH 2aTUUzXI45NH25qNNja4D7 wXO2G2FdLCMrlmgapnvdzV H8IFDbQFCt qN72gPHsLQqoAl5oh9L4l7 25FOHvCVOfjL80Uq4thEee VZIipBTXqA8wrpzes9panz ogIzAwMDAw ICp3WZq3UQFlrUveLsRnIL O0EoL7NTE2nUVwgG5khAuz gunndZ1uZbl+NzEgWWVhcn K1Q3PiGbo0 MBWyfGswNI7mqCYoOPlcKz 4rsJpsuGygSU7xDGJaxxzs MCFxaH3oLBKhuHUsuMifOB 4wNTBpbjtm h471JuVqYIF1MIJoeJCqC7 QtqM3bEdWoCOMgORNrG3Ur bFNoCOidI741ZWbxSuP1NO FpovKdO6Kz YGAikRxbSsR6y4Q7We4FBD zkHL29AQ48sDOpl6W8dBL4 B3ObKRDumqwdngsmkNL4WB HyYMLmbL82 rCNyCGuvOl4aj5L9s585DV AlTSVlvH48Ml2cgMdzAWDj gUQUtU4nawyma4ljuwnkCu AwMDAwMDt0 IFk8AVErnMyyHmIrWFH4St Q7WJS2rXAdnD9ecQbcblgu uY5yZfk+W9B9mTR4bNIuxB wvdGQ+PC90 qc95J6RkXzqtCwq9CVPkXW I6hAZ8eD7qBNFwBFtdy0B1 sJS1X1GxucQtab9mt5qbBZ FtTHqjF82l vIPmp1G0EFSbhVI4QKOdeK gmXfUgxS43Kfu+PGNvbGdy r1KlLnlgh2ryb2hfrOc5By MwJSIgdmFs qRahUZQ9m4UbRq17O88aAV dpZHRoPSIzMCUiIHZhbGln lr2gqS6yVu9+UUOwyUA5jZ X6eS1zLsQo NlY5RTakW408GpBkbRVdLx qyk9yzc6qfuPn7CkUzXPIk teZnoUibICO2r5GiSm41M4 NplRkjo5Zu Gyq4yg35lOKrn1M5cFW6R6 AxQHUnhlgldONzgMemPY9f IQHnfpwkJIZefM6sQSKrL2 l8KpOzMbY0 YSdqS9GyvfV3MTZzdXVcTK UlfKAOfH3clvzge1mtaszf VbSqRIRdSBp3MWo8QUZgbD duOiBsZWZ0 ErI0OKP8mHEbaF5zkYpobu dutU8mFuf+FYi3c8lebLPf YP3muLS7VJ00RH22pLWgk3 P9dEY3M2Eh ALEwujbkysdnkNW7ANShWY LcwJ80Ub4fjWlsNg0mEPCm CPT0PRWknWOoZ1PfyL5oCt AjMDAwMDAw M2DogGPiBVitP651WWbeWe Q6XGGaueOkY8HzPSOabEvp BfY0s6R3Xc3XNV90VS56QB 02vNPtr0S2 oKP7A5JkHAVafuqqaeyfmD K2GNGqLNUszV64Ku3crOwi Xz9oYQFkYFY4AOHupWLdE5 KhnZ1kQpGa EAJrULGjH7CuwCXiNCaaN1 39ZJemYeU4DOCilcYxY9Df ZAGtsBndWyS8j5T5Yx3KCi 40VF76TS47 wSFto2U6gRH7G3ClXBSybm onwiaweTR3DXHgRMVinC10 Lo8gwMfpJc8tHFUsYPH9FG KvaBUoD1Ld aU2aMyWpHNAdEJOwU0NmrY NnBXgkP811WPjwDdN8JIBi nvIiN3UiUCAekBoeDaD0y8 B9Jl6HKOxq uvi8M8HhYmebzOD+PC90YW ZzHU10eCMliYTfw1jktJe9 UtPzRPQdWIM5tAqgEKizp6 AjTDPcX28a kOEnc4J9 (more content not included)... Normal [facility] Consent for Procedure/Surger yon 09-29-2022 Consent for Procedure/Surgery [id number]#1.00 CD:127 [facility] Consent for Treatmenton 09-19 Consent for Treatment [id number]#1.0 0CD:127 [facility] IntraOperative Documentson 0 09-29-2022 IntraOperative Documents [id number]#1.00 CD:127 [facility] Main OR Intraoperative Recor don 09-29-2022 Main OR Intraoperative Record IntraOp Document Type FTURO Summary Primary Physician: Lionel CARRINGTON MD Finalized Date/Time: 09/29/22 10:53:58 Pt. Name: MARY DIAZ/Sex: 1950 Male Med Rec #: [id number] Physician: Lionel CARRINGTON MD Financial #: [id number] Pt. Type: O Room/Bed: / Admit/Disch: 09/29/22 [...] Nanci Luna Role Performed Surgeon - Primary Integration Software Engineer - Primary Scrub - Primary Time In [...] Participants Edgard ZELAYA, EDITHOR, Applicable) Safia Luna BASEBALL SCOUT, Nanci Baxter Time Out Complete 09/29/22 10:49:00 [...] PAULINA Rene RN, Ruthann 09/29/22 10:53 Normal [facility] Main OR Preoperative Recordo n 09-29-2022 Main OR Preoperative Record Holding Area Document Type FTURO Summary Primary Physician: Lionel CARRINGTON MD Finalized Date/Time: 09/29/22 10:52:30 Pt. Name: MARY DIAZ/Sex: 1950 Male Med Rec #: [id number] Physician: Lionel CARRINGTON MD Financial #: [id number] Pt. Type: O Room/Bed: / Admit/Disch: 09/29/22 [...] No Pain Comment: na Skin Integrity Intact, [place], Warm, & Dry Vitals - EU Blood Pressure 148/82 Pulse 53 bpm Respirations 16 br/min SPO2 96 % RN Reviewed Yes Last Modified By: PAULINA Rene RN, Ruthann 09/29/22 10:52:28 General Comments: temp:36.5 Finalized By: PAULINA Rene RN, Ruthann Document Signatures Signed By: Iram Thomas LPN 09/29/22 10:28 PAULINA Rene RN, Ruthann 09/29/22 10:52 Normal [facility] Operative Reporton 3 Operative Report Patient: MARY [...] with antibiotic coverage, Follow up arranged. Normal [facility] Comment on above: Result Comment: Elec tronically Signed By: DEVONTE NOBLE, Lionel Gama.tacos\Date and Time Signed: 09/29/22 10:57 EDT Urine Cytology ([facility])on 0 09-28-2022 Urine Cytology Diagnosis Info Invalid Interpretation Code [facility] Comment on above: Result Comment: A:Ur ine,Urine:Voided Interpretation - MicroScopic Description - Adequacy - Gross Description Site ID:A color Yellow fixative Alcohol Specimen designated Urine received in alcohol preservative and labeled with the patient?s name, consists of 40ml clear yellow fluid. Electronically signed by : on: 09/28/2022 09:14:07 Performed By: #### 1 [id number] ####[facility] [id number] [place] [address] US SINGLE QUAD RT UPPERon US SINGLE [...] SOCORRO HUFFMAN Date: 2022-09-24 09:46 Normal [facility] AMYLASEon 09-21-2022 Amylase [Catalytic activity/Vol] 78 U/L Normal 25-115 [facility] Comment on above: Performed By: #### C VDTBH #### [facility] [address] [place] [address] Dr. Johnna Dixon CBC AUTO DIFFon 09-21-2022 BASO # 0.0 103/ul Normal 0.0-0.1 [facility] Comment on above: Performed By: #### C VDTBH #### [facility] [address] [place] [address] Dr. Johnna Dixon Basophils/100 WBC (Bld) 0.5 % Normal 0.2-2.0 [facility] System Comment on above: Performed By: #### C VDTBH #### [facility] [address] [place] [address] Dr. Johnna Dixon EO # 0.1 103/ul Normal 0.0-0.7 [facility] Comment on above: Performed By: #### C VDTBH #### [facility] [address] [place] [address] Dr. Johnna Dixon Eosinophils/100 WBC (Bld) 1.9 % Normal 0.9-7.0 [facility] Comment on above: Performed By: #### C VDTBH #### [facility] [address] [place] [address] Dr. Johnna Dixon Erythrocyte distribution width (RBC) [Ratio] 14.5 % Normal 11.0-15.0 [facility] Comment on above: Performed By: #### C VDTBH #### [facility] [address] [place] [address] Dr. Johnna Dixon Hematocrit (Bld) [Volume fraction] 39.1 % Critically low 42.0-54.0 [facility] Comment on above: Performed By: #### C VDTBH #### [facility] [address] [address] [address] Johnna Dixon Hemoglobin (Bld) [Mass/Vol] 12.8 g/dL Critically low 14.0-18.0 [facility] Comment on above: Performed By: #### C VDTBH #### [facility] [address] [place] [address] Dr. Johnna Dixon IG # 0.05 10e3/ul Critically high 0.00-0.03 [facility] Comment on above: Performed By: #### C VDTBH #### [facility] [address] [place] [address] Dr. Johnna Dixon IG % 0.7 % Critically high 0.0-0.5 [facility] Comment on above: Performed By: #### C VDTBH #### [facility] [address] [place] [address] Dr. Johnna Dixon LYMPH # 2.0 103/ul Normal 1.2-3.8 [facility] Comment on above: Performed By: #### C VDTBH #### [facility] [address] [place] [address] Dr. Johnna Dixon Lymphocytes/100 WBC (Bld) 27.4 % Normal 20.5-60.0 [facility] Comment on above: Performed By: #### C VDTBH #### [facility] [address] [place] [address] Dr. Johnna Dixon MANUAL DIFF REQ NO Normal [facility] Comment on above: Performed By: #### C VDTBH #### [facility] [address] [place] [address] Dr. Johnna Dixon MCH (RBC) [Entitic mass] 31.3 pg Normal 25.9-34.0 [facility] Comment on above: Performed By: #### C VDTBH #### [facility] [address] [place] [address] Dr. Johnna Dixon MCHC (RBC) [Mass/Vol] 32.7 g/dL Normal 29.9-35.2 [facility] Comment on above: Performed By: #### C VDTBH #### [facility] [address] [address] [address] Johnna Dixon MCV (RBC) [Entitic vol] 95.6 fL Critically high 80.0-94.0 [facility] Comment on above: Performed By: #### C VDTBH #### [facility] [address] [place] [address] Dr. Johnna Dixon MONO # 0.5 103/ul Normal 0.3-0.8 [facility] Comment on above: Performed By: #### C VDTBH #### [facility] [address] [place] [address] Dr. Johnna Dixon Monocytes/100 WBC (Bld) 6.9 % Normal 1.7-12.0 [facility] Comment on above: Performed By: #### C VDTBH #### [facility] [address] [place] [address] Dr. Johnna Dixon NEUT # 4.7 103/ul Normal 1.4-6.5 [facility] Comment on above: Performed By: #### C VDTBH #### [facility] [address] [place] [address] Dr. Johnna Dixon Neutrophils/100 WBC (Bld) 62.6 % Normal 43.0-75.0 [facility] Comment on above: Performed By: #### C VDTBH #### [facility] [address] [place] [address] Dr. Johnna Dixon Platelet mean volume (Bld) [Entitic vol] 9.3 fL Critically low 9.5-13.5 [facility] Comment on above: Performed By: #### C VDTBH #### [facility] [address] [place] [address] Dr. Johnna Dixon PLT 235 103/ul Normal 150-450 [facility] Comment on above: Performed By: #### C VDTBH #### [facility] [address] [place] [address] Dr. Johnna Dixon RBC 4.09 106/ul Critically low 4.70-6.10 [facility] Comment on above: Performed By: #### C VDTBH #### [facility] [address] [place] [address] Dr. Johnna Dixon WBC 7.4 103/ul Normal 4.0-11.0 [facility] Comment on above: Performed By: #### C VDTBH #### [facility] [address] [place] [address] Dr. Johnna Dixon LIPASEon 09-21-2022 Lipase [Catalytic activity/Vol] 114.0 U/L Normal 73.0-393.0 [facility] Comment on above: Performed By: #### C VDAGS #### [facility] [address] [place] [address] Dr. Johnna Dixon LIVER PROFILEon 09-21-2022 Albumin [Mass/Vol] 3.9 g/dL Normal 3.4-5.0 [facility] Comment on above: Performed By: #### C VDTBH #### [facility] [address] [place] [address] Dr. Johnna Dixon Albumin/Globulin [Mass ratio] 1.6 {ratio} Normal [facility] Comment on above: Performed By: #### C VDTBH #### [facility] [address] [place] [address] Dr. Johnna Dixon ALP [Catalytic activity/Vol] 59 U/L Normal 46-116 [facility] Comment on above: Performed By: #### C VDTBH #### [facility] [address] [place] [address] Dr. Johnna Dixon ALT [Catalytic activity/Vol] 23 U/L Normal 16-63 [facility] Comment on above: Performed By: #### C VDTBH #### [facility] [address] [place] [address] Dr. Johnna Dixon AST [Catalytic activity/Vol] 8 U/L Critically low 15-37 [facility] Comment on above: Performed By: #### C VDTBH #### [facility] [address] [place] [address] Dr. Johnna Dixon BILI, CONJUGATED 0.1 mg/dL Normal 0.0-0.2 [facility] Comment on above: Performed By: #### C VDTBH #### [facility] [address] [place] [address] Dr. Johnna Dixon Bilirubin [Mass/Vol] 0.3 mg/dL Normal 0.2-1.0 [facility] Comment on above: Performed By: #### C VDTBH #### [facility] [address] [place] [address] Dr. Johnna Dixon Globulin (S) [Mass/Vol] 2.5 g/dL Normal [facility] Comment on above: Performed By: #### C VDTBH #### [facility] [address] [place] [address] Dr. Johnna Dixon Protein [Mass/Vol] 6.4 g/dL Normal 6.4-8.2 [facility] Comment on above: Performed By: #### C VDTBH #### [facility] [address] [place] [address] Dr. Johnna Dixon PROF CHEM 8 (BAS METB)on Anion gap [Moles/Vol] 13.4 mmol/L Normal [facility] Comment on above: Performed By: #### C VDTBH #### [facility] [address] [place] [address] Dr. Johnna Dixon Calcium [Mass/Vol] 8.9 mg/dL Normal 8.5-10.1 [facility] Comment on above: Performed By: #### C VDTBH #### [facility] [address] [place] [address] Dr. Johnna Dixon Chloride [Moles/Vol] 106 mmol/L Normal 98-107 [facility] Comment on above: Performed By: #### C VDTBH #### [facility] [address] [place] [address] Dr. Johnna Dixon CO2 [Moles/Vol] 25.6 mmol/L Normal 21.0-32.0 [facility] Comment on above: Performed By: #### C VDTBH #### [facility] [address] [address] [address] Johnna Dixon Creatinine [Mass/Vol] 1.21 mg/dL Normal 0.70-1.30 [facility] Comment on above: Performed By: #### C VDTBH #### [facility] [address] [address] [address] Johnna Dixon EGFR-AF BRITISH >60 Normal >=60 [facility] Comment on above: Performed By: #### C VDTBH #### [facility] [address] [address] [address] Johnna Dixon EGFR-NON AF BRITISH 59 mL/min/1.73m2 Critically low >=60 [facility] Comment on above: Performed By: #### C VDTBH #### [facility] [address] [address] [address] Johnna Dixon Glucose [Mass/Vol] 115 mg/dL Critically high 74-[address] [facility] Comment on above: Performed By: #### C VDTBH #### [facility] [address] [address] [address] Johnna Dixon Potassium [Moles/Vol] 4.0 mmol/L Normal 3.5-5.1 [facility] Comment on above: Performed By: #### C VDTBH #### [facility] [address] [place] [address] Dr. Johnna Dixon Sodium [Moles/Vol] 141 mmol/L Normal 136-145 [facility] Comment on above: Performed By: #### C VDTBH #### [facility] [address] [address] [address] Johnna Dixon Urea nitrogen [Mass/Vol] 19.0 mg/dL Critically high 7.0-18.0 [facility] Comment on above: Performed By: #### C VDTBH #### [facility] [address] [place] [address] Dr. Johnna Dixon Urea nitrogen/Creatinine [Mass ratio] 15.7 mg/mg Normal [facility] Comment on above: Performed By: #### C VDTBH #### [facility] [address] [address] [address] Johnna Dixon Patient Educationon 09-22-19 Patient [...] if anything looks unusual. Men with a qbbzrr-mysy-uenqvk risk for skin cancer may want to see a roll skinner (chief digital media officer) for an annual body check. Where to find more information ? National [employer]: https://www.cancer.gov /about-cancer/screenin g ? Centers for Disease Control and Prevention: https://www.cdc.gov/ca ncer/dcpc/prevention/s creening.htm ? [employer]: https://www.cancer.org /latest-news/4-cancer- uxgclacod-bhzlt-rxh-me n.html Contact a health care (more content not included)... Normal [facility] Urine Cytology ([facility])on 0 09-21-2022 Method of Extraction Voided Normal [facility] Comment on above: Performed By: #### 1 [id number] ####[facility] [address] [place] [address] Number of Jars 1 Invalid Interpretation Code [facility] Comment on above: Performed By: #### 1 [id number] ####[facility] [address] [place] [address] Specimen Urine Normal [facility] Comment on above: Performed By: #### 1 [id number] ####[facility] [address] [place] [address] Type of Service Technical Only Normal [facility] Comment on above: Performed By: #### 1 [id number] ####[facility] [address] [facility] [place] [address] Ambulatory Visit Summaryon 0 08-17-2022 Ambulatory Visit [...] NOBLE, Lionel Burgos Where: [facility] Normal [facility] CREATININEon 08-04-2022 Creatinine [Mass/Vol] 1.31 mg/dL Critically high 0.70-1.30 [facility] Comment on above: Performed By: #### C JANIS #### [facility] [address] [place] [address] Dr. Johnna Dixon EGFR-AF BRITISH >60 Normal >=60 [facility] Comment on above: Performed By: #### C JANIS #### [facility] [address] [address] [address] Johnna Dixon EGFR-NON AF BRITISH 54 mL/min/1.73m2 Critically low >=60 [facility] Comment on above: Performed By: #### C JANIS #### [facility] [address] [place] [address] Dr. Johnna Dixon CTA NECK WO W [...] by: ALLI CORTES Date: 2022-08-04 14:04 Normal [facility] US CAROTID ART BILon 023 US [...] by: ALLI CORTES Date: 2022-07-28 12:00 Normal [facility] Ambulatory Visit Summaryon 0 07-20-2022 Ambulatory Visit Summary MARY DIAZ :1950 Visit Date:07/20/2022 Ambulatory Visit Instructions Your Diagnosis History of bladder cancer Tests Performed Urnls Dip Stick Auto w/o Microscopy POC 17812 Your Care Team Attending Physician - DEVONTE ONBLE, Lionel Burgos Primary Care Physician - Yolande [...] AM EST With: Where: [facility] Normal [address] [place] [address] [place] [address]- \.br\ Medications\.br \ What How Much When [...] Urnls Dip Stick Auto w/o Microscopy POC 59906 (07/20/2022)\.b r\ POC Test Comments - UA prior to Mitomycin tx\.br\ Bilirubin Urine Dipstick - Negative\.br\ Blood Urine Dipstick - Negative\.br\ Glucose Urine Dipstick - Negative\.br\ Ketones Urine Dipstick - Negative\.br\ Leukocytes Urine Dipstick - Negative\.br\ Nitrite Urine Dipstick - Negative\.br\ Protein Urine Dipstick - Negative\.br\ Specific [place] Urine Dipstick - 1.020\.br\ Urine Appearance Urine [...] for.\.br\ Acid reflux\.br\ Cancer of prostate\.br\ \.br\ [facility] Consent for Procedure/Surger yon 07-15-2022 Consent for Procedure/Surgery [id number]#1.0 0CD:127 Normal [facility] Consent for Procedure/Surgery [id number]#1.0 0CD:127 Normal [facility] FISH ([facility])on 0 07-15-2022 [facility] FISH Diagnosis Info Invalid Interpretation Code [facility] Comment on above: Result Comment: A:Ur [...] on: 07/15/2022 15:42:11 Performed By: #### 1 [id number] #### [facility] [address] [place] [address] Coding Summary.on 07-08-2022 Coding Summary. CD:[id number] Gh 0bWw+PGhlYWQ+DD0RBNFbH 33vfBBrdW4OK4kAZG2RCIM DGSFOXN2GXC8ksKG5ARytX 2VybiAv MogzcEJiOY53FRt8IQQ5aE krJDrzvS0efOAwZ7o1ZyZq HZ47rJ67RSloODIoUyY8Uo ZpbjsgbWFy Q0gqSvNztLVvRxl+PHRhYm xlIHdpZHRoPScxMDAlJyBz cWtfUD8qYb3mODVgJAQkuM xhcHNlOiBj l1kgVIDoNHzhRI3sxHpeH8 ZhbIS2UYDga1q2Yf20mUA+ KZZtWDC2pPtjZPpzn267Mm Hqj4ixTDM4 zIQhCWhfOKD6K61ma4L4AT BaMDOjDMN7zZK3fT5omOqm rebeN7DxdLUcCpQ9VHU5uR JexZ6qsXee hwaxnS8gRbd+N52KHO3ONO ZYCD4TQca2K6UoBzzhyDQ+ NP51ABScWI73nAWkpOGlt0 cxzQw9XuSi DZZaMHX4vGmlOHqfa9YmVN PbZ68nkOGdd4M0OCBalTsm dAAdQnPsqEE7gR1bWZquwx sun7egqvru Bjcoj1zzio69fN82Z53hGY btIHLyGUU5IMLyMJGjnHdj sh3zjT1sFr4+BLjnx8fvx8 hoqGv0HwKm SJSohxPdfXkpPNI8k5QtOo 64L2AedOudx8WvBpr8it19 vZOrl3K4eAU4YXrkRXGlpN 4vTKgkCiZ3 MAQdUqXnoV67uRCeBNqlVm 8gvJwreHrgOS2gEGXhimfh STRnmC0tAOTkrGQsdPkiNL 4wNTBpbjtm x351UdWeUNE5QLPkwMHaV8 VeqW7wXaCnEUJxQLLmH4Ph iCBjYHrxV586EDqaGdQ5UQ NtcoYeL7Qa DFZlrNbyQgI0g4V5Kr8Di8 VyuohpAVJ3YVvoYSTyYxA0 KrCvObR2Z7SqMlm9OGSscF vzRA8nQ2Pz SRMgloiurjyxqKR0LSHpGS HuiY27qKAaDJeaZa2if2P2 h994XUGgGKAbeQ17Ly5qvO ogMTBwdCBU lU6evdtay8klcuufYpWrST NgUMw8NKi5JMCisGsaLmGr BVQ8ByK2HHK6rJLdbM0iuC pdrrdbvL9b Oyc+V93guB6yPEA7FWY5lq cfVMYxfkPbOZ35HO19X8Lo PjwvdGFibGU+PGRpdiBzdH qdLH9hUnDm q8yqk3BjMBiaO0AjISIvMP dcQzi5LKDwOAP6sOC0zX5e XIYxVNxek0N4cKR7P9Hboc Ujhu7ud2vb MZKhBEkcX63ehTVoo7C7NI XfmIM0ZRPumCjxFpUvfO28 Oyc+PRGxyUdgo3XeUfayv4 sdp6uggIj8 XtMlSSAkutZieAudPJN6f0 KnWf65K45kYXyaOIHvBDKe WUZuGFZwvKxrkf7ryB0iVe 8+PGNvbCB3 dOJ7cF4uLXHnRkW4XRqaB9 14UkGakRPfSaezv0qyc9sx qTk4PeUhTLQpweSvtLelLV F5y5LcWw95 X62mGOgdJNMqZVJqLJQiJC JmvNtcgb3fzI9uIu8+PC9j l3pmkq89cX82fOV+PHRkIH N5bYjjCWqg DLEjlV4rQSqrXlT3LZIyUk MjrM02aFKaAWxlDd1bxTur bSueLZ8jWEDmxdhfu409Ad Cqt1uiRTTs pPIkJUiaXNQ4V30cp1B5PD RdQMTaIWW1rUM6oH5lgPcb bjogbGVmdDsgdmVydGljYW awVRibZ227 IHRvcDsnPlBhdGllbnQgTm VgTXi5V7HlAzh4IFFtsTrq MC6mgMHwGGaeCw7ojQmhjJ muKV1aOTXh stxja660NfHbw5ekURQhcS OeEGbwXAN0X81pc3T1YGBn SQAhWNB2cMH7dC3wxHnyay ogbGVmdDsg wcJkwJuxQNixGScmF199FL RvcDsnPkJpcnRoIERhdGU6 SP92YB72sFHti0R4sJG9T4 BhZGRpbmct yaottCH6HCZkZOQxmO60Gn 8xbBygNr0cKMSbJAM1GYAj pLPlG1JhbU4vXtWvZMGqUB ZlO2VnhCIs ANuaS787KUgcDgM4ITMdxn IsD2WhJCEvkXbvGdU6b3V5 Fw8BO9Y4SW27ZG74wOAsv1 V3cBK7W7Zt MVPnerypowgheNR7EQEjAB TgpO11Zq5ceHonLo8xYFPi ESF1NRPsbQPrJ7SdbK3lZf AjMDAwMDAw Z0QyyYXbCOpxY449MOooDv V9TBCekrWzJ1EhMNXkzCrs OvJ2w4Q6Bw2YTHa8BM20HC 43hOJgn6R8 kTL0E4BqBEYwrfuzpankeJ A6GXZmAGThaV25Yg7gvPoo Ft0dKRHmSFV9PBSuuOTxQ6 GszP5iYrYy MBGyCDNlI8OykGKcIDmcN0 21YRozOqJ2BJJrqmTnD5Bj OXKhjJffQuV1a2G6Kg5MJJ OmIR72QVV0 qFT2KI30XW28W6KeYukpnG FibGU+PHRhYmxlIHdpZHRo BHneTZQjKtNoaSpkIH2oIh 9yZGVyLWNv qGvcrXBpKsOox4ykHDDtYN syMT5ppSqsV6ZdsSE8CLUk r3d4Gm64D94cX8IdnDF+PG LuoNR7eUR6 eB3kMrYgVjT5XYvoM807Wk GnlSFxIvubx9mwp9wqqWk8 IgA8SVHzuaZeiTbjIWG8a4 JjHd79K70u IHdpZHRoPSIxNSUiIHZhbG yqkp4rqH4kIt3+PGNvbCB3 bRI5pC4fNxQsMcH0UFncZ4 49InRvcCIv Nunjd5jnu2ukmHh6RgRtWW EwwmZfiLywVOA3c6KbRq81 L4AolZbbb5PrSdh0or39sQ Pgv6N5gQP3 N8MhACBmhrnimZRzcEhtLP 4zOLEwgbmxAOHqbX4jBDBf D3n8RqLrGhG2SVzoO5Vuyp E8VFRroRMi LVfcQKJ9V62ti0M1WXJzPB RsYJM6wKW4bS9qmPnnfacp bGVmdDsgdmVydGljYWwtYW qlW938GGBr oCccSNJhbM7zDEHgkSGopA yuRE1jUAIurwmfCtqYPZ4X BEOLIWXKUJ1DOwXBIW02TJ 51oHQyh2Z5 jED8B3OxNCEdkkihejfljF X1WLHkCWVeeY64xQPrQGdj Yd4ib7Z5t947LGBqJNFotF 76Da0gfGeg OSWseILNyU1zhwlxo8yezp imZhJlHFWfYGu9MZh9MWVu lUgfHyBtFUJ6FiE8MQN0fQ OalD2itLey khpwtW0fHvr+MDgvMTUvMT u3AHhtkWQ+HDOqFXB5kAde JMmtCTTlvO7iRHRfU8i0Bk EfBrR0EIhw B1CuUHTunzsbSp44rA7yFc NvBrT4TTyfN2FrgdE7THLp iLPyIOkaNUL4F13wp6K2WR MwMDAwMDA7 dSS4xB3evPwwwizjaUYcpJ gybfRqeRpgAFhbKLutC834 IHRvcDsnPjcxIFllYXJzPC 42FZ99eLVb n0T3cNJ6N7YeDOHswgqwvo jvkNB2ZHZcYYFveC18aUWy IVcaZs1qn5E7b585VTScOA SlnH19Nf7g eQbfJUPulUQSzI8hfbwov5 ksggddHnThCMLgLLz1BXs0 IOVewLqvYuPvGJD9PoF3HB H8nWYstN9k pLjufbngnO8zGvn+TWFsZT wvdGQ+PLDeWUD3tRxkTWqt FMGluR0zCJAjE5s5NxZjLm Z9OGdsI5Pa LRZfmrkhWv91pN5bMkAxUg I3UZrvE8ZgmuM4UUGbvQZf EZdtWPD9V67lt3Y6TDIyMV IhOII0nHJ3 sV9rrOqkrxdtlBEwwVtzub AzmTrnMPpdHCbmC168FCOt hCxcFc83dGFnnMfksyV3E7 RkPjwvdHI+ HB77WFOgQL93uZFsqDZqc4 asxBd2QcOwAOKjUEC0oIim ENalw7RlXRNjP40azERht1 K9ZVZydJcc jFHbAxKatOV3vG9lSFknvv hqn2brxsjdUqrvk5rrwf42 pJ73A32iTPozQGBeXSEyHV UiIHZhbGln zf1ygO7nNy4+NCOlgNM9iV K3kB2wWuNeGcG8KFsuM477 YfInnHNdAkshr0yky3ykjW u5BvHbUVPl eiWplHkqKGM4g4QnIv41U9 9sIHdpZHRoPSIyMCUiIHZh dJnxcs9hoD6wCb1+PC9jb2 jqcv78cP47 dHI+TQHhOGZ4uLniQMzyXZ EpxX4xYDalKhR9KYKzKdCb mS35aQUvWGwoVw2bmIwndS leNX2jWGFm bdqps458RzLwx4feKIAyaY MiJDacFZW7S40zk7E7GSPl KTYwRBR5vFK2yU7vfByblv ogbGVmdDsg ekIpcPmjDGwlIEarL148TX IpcLjqQhGaiTYfY9qowxYR EA4tPlwtuEX+OFInNKJ5bB xlPSdwYWRk qA1iCQEqE8b9TiXuRvY6WF gbB9WtteO5KGAnnWEuEWXl tUCYaI9dlzcqx9abvkatNe AwMDAwMDt0 SOc8TTDcuJofXjUaIBR6Gt I0RPH1bXIhhE4thLzoilfj pE7kTaw+RklOOjwvdGQ+PH OsQHH1fQbm OQbnWAJqtY1mUKSdZ5f5Gj LqJyA4PRwoW3QmrjP4BEWs eAQhDSYjiMXPoZ9pqgist7 xvcjogIzAw XYVxZQy0RFc4WYIekCxdPz BmGQJ7SdH2PCI8pIGffD9i lWtnroxyuU0pCep+TVJOOj wvdGQ+PHRk CTM3oGobNCteVTEkfA5xSA SmA6v3SeTxDbC9GHldN2Nu puM4DJNvnQBzSDCofTMGhF 1aklkqc5wq xxpeAnVpLNAoJJh0GAb6HK XvpExoOaDkXSD4OyE6HCG6 kFTloF5fuBqgogkvtN1rCx c+IPY9XCC6 LY65BV80F5PyWmpspYIjsO U+PHRhYmxlIHdpZHRoPScx VDKiJuOnwKloNF7bJw4mCP VyLWNvbGxh cHNl (more content not included)... Normal [facility] Consent for Procedure/Surger yon 07-08-2022 Consent for Procedure/Surgery [id number]#1. 00CD:127 Normal [facility] IntraOperative Documentson 0 07-08-2022 IntraOperative Documents [id number]#1. 00CD:127 Normal [facility] Consent for Treatmenton 06-21 Consent for Treatment [id number]#1.0 0CD:127 Normal [facility] Main OR Intraoperative Recor don 07-07-2022 Main OR Intraoperative Record IntraOp Document Type FTURO Summary Primary Physician: Lionel CARRINGTON MD Finalized Date/Time: 07/07/22 13:40:45 Pt. Name: EMILYMARY/Sex: 1950 Male Med Rec #: [id number] Physician: Lionel CARRINGTON MD Financial #: [id number] Pt. Type: O Room/Bed: / Admit/Disch: 07/07/22 [...] Zora Luna Role Performed Surgeon - Primary Integration Software Engineer - Primary Scrub - Primary Time In [...] PAULINA Rene RN, Ruthann 07/07/22 13:40 Normal [facility] Main OR Preoperative Recordo n 07-07-2022 Main OR Preoperative Record Holding Area Document Type FTURO Summary Primary Physician: Lionel CARRINGTON MD Finalized Date/Time: 07/07/22 13:40:51 Pt. Name: MARY DIAZ/Sex: 1950 Male Med Rec #: [id number] Physician: Lionel CARRINGTON MD Financial #: [id number] Pt. Type: O Room/Bed: / Admit/Disch: 07/07/22 10:08:13 - Institution: Case Times Holding FTURO Pre-Care Text: Verifies consent for planned procedure, identifies individual values and wishes concerning care, includes family members in perioperative teaching Secures patient's records' belongings, and valuables, maintains patient's dignity and privacy, and maintains patient confidentiality Entry 1 In Holding 07/07/22 10:19:00 Outcomes Met? Yes Last Modified By: Iram Thoams LPN 07/07/22 10:19:52 Post-Care Text: The patient [...] No Pain Comment: na Skin Integrity Intact, [place], Warm, & Dry Vitals - EU Blood [...] PAULINA Rene RN, Ruthann 07/07/22 13:40 Normal [facility] Operative Reporton Operative Report Patient: MARY [...] then a repeat cystoscopy in September. Normal [facility] Comment on above: Result Comment: Elec tronically Signed By: DEVONTE NOBLE, Lionel Gama.tacos\Date and Time Signed: 07/07/22 10:51 EST [facility] FISH ([facility])on 0 07-07-2022 UV Method of Extraction Bladder Wash Normal [facility] Comment on above: Performed By: #### 1 [id number] #### [facility] [address] [place] [address] UV Number of Jars 1 Invalid Interpretation Code [facility] Comment on above: Performed By: #### 1 [id number] #### [facility] [address] [place] [address] UV Specimen Urine Normal [facility] Comment on above: Performed By: #### 1 [id number] #### [facility] [address] [place] [address] UV Type of Service Technical Only Normal [facility] Comment on above: Performed By: #### 1 [id number] #### [facility] [address] [place] [address] Retail - Clinical Noteon Retail - Clinical Note [id number]:[id number] Normal [facility] XR KNEE RT 4V or >on [...] DEBORAH ZARAGOZA Date: 2022-06-30 17:38 Normal [facility] XR RIBS RT PA Fab 2 XR [...] SOCORRO SERRANO Date: 2022-05-25 14:51 Normal [facility] XR RIBS RT PA Fab 2 XR [...] atelectasis and small pleural effusion Normal [facility] CT CHEST WO CONon 04-18-2022 CT CHEST [...] SOCORRO BANSAL Date: 2022-04-18 16:17 Normal [facility] CULTURE URINEon 03-12-2022 CULTURE URINE Culture Observations : NO GROWTH. Normal [facility] Comment on above: Performed By: #### S PUTGS #### [facility] [address] [place] [address] Dr. Johnna Li 02-17-2022 L -- ---- Specimen: [id number] Received: 02/17/22 Status: ZACKERY Nials Num: [id number] Spec Type: Surgical Subm Dr: Lionel Carrington MD Tissues: A Urinary Bladder - biopsy (BLADDER TUMOR) Procedures: HE Stain/2, Gross/Micro L4, IHC First AB, IHC Add AB ---- Age/ Patient Sex Location Account Attending Physician ---- Mary Diaz 72/M [place] [id number] Lionel Carrington MD ---- SPEC NUM: [id number] RECD: 02/17/22 STATUS: ZACKERY NAILS NUM: [id number] JOE: 02/17/22- DR: Lionel Carrington MD ENTERED: 02/17/[address]: SPEC TYPE: Surgical DEPT: S ORDERED: HE Stain/2, Gross/Micro L4, IHC First AB, IHC Add AB ORDERED: HE Stain/2, Gross/Micro L4, IHC First AB, IHC Add AB Supplemental Report Addendum 1 Entered: 02/27/22-1037 This case was sent to [facility] with their interpretation as follows: FINAL DIAGNOSIS Urinary bladder, transurethral resection - 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 Please see [facility] case ( [id number] ) for further details Addendum Signed (signature on file) Sanjiv Correa MD 02/27/22 1037 ---- ---- Specimen: [id number] Received: 02/17/22-4317 Status: ZACKERY Nails Num: [id number] Spec Type: Surgical Subm Dr: Lionel Carrington MD Tissues: A Urinary Bladder - biopsy (BLADDER TUMOR) Procedures: HE Stain/2, Gross/Micro L4, IHC First AB, IHC Add AB ---- Patient: Mary Diaz [id number] (Continued) ---- Specimen: [id number] Received: 02/17/22 (Continued) Signed (signature on file) Domi Florez MD 02/18/221899 ---- Specimen: [id number] Received: 02/17/22 Status: ZACKERY Jaqui Num: [id number] Spec Type: Surgical Subm Dr: Lionel Carrington MD Tissues: A Urinary Bladder - biopsy (BLADDER TUMOR) Procedures: HE Stain/2, Gross/Micro L4, IHC First AB, IHC Add AB ---- Patient: Mary Diaz [id number] (Continued) ---- Specimen: [id number] Received: 02/17/22-7633 (Continued) Pathological Diagnosis Urinary bladder, transurethral resection: [...] P53 shows wild type pattern of expression. 29497, [id number], 03915 The use of one or more reagents in the above tests is regulated as an analyte specific reagent (ASR). The performance characteristics were determined by the Laboratory of [facility]. Immunohistochemistry assays have not been validated on decalcified tissue. Results should be interpreted with caution given the possibility of false negative results on decalcified specimens. They have not been cleared by the [place] Food and Drug Administration. The FDA has determined that such clearance or approval is not necessary. (more content not included)... Normal [facility] SARS-CoV-2 (COVID-19) RNA REX+probe Ql (Unsp spec) Negative Normal Negative [facility] Comment on above: Order Comment: Healt hcare Worker?: N Result Comment: Testing for SARS-CoV-2 by RT-PCR This test was developed and its performance characteristics determined by [id number] ([employer]) and validated at the [facility]. This test has not been FDA cleared [...] is terminated or revoked sooner. PERFORMED BY: [place] [address] PATHOLOGIST GEOPHYSICAL LABORATORY CHIEF DOMI FLOREZ M.D. Performed By: #### C OVID 19 [facility] #### [address] COVID-19 Positive/NegativeOr dered By: Lionel Carrington on 02-13-2022 SARS-CoV-2 (COVID-19) N gene REX+probe Ql (Resp) Negative Negative [facility] Comment on above: Testing for SARS-CoV -2 by RT-PCR This test was developed and its performance characteristics determined by [employer] and validated at the [facility]. This test has not been FDA cleared [...] aPTT Coag (PPP) [Time] 34.8 s 25.1-36.5 [facility] Basic Metabolic Panelon 01-19 Calcium [Mass/Vol] 9.7 mg/dL Normal 8.2-10.2 [facility] Comment on above: Result Comment: PERF ORMED BY: [place] [address] PATHOLOGIST GEOPHYSICAL LABORATORY CHIEF DOMI FLOREZ M.D. Performed By: #### B MP, PTT, PT, CBC #### [address] Chloride [Moles/Vol] 99 mmol/L Normal 95-114 [facility] Comment on above: Performed By: #### B MP, PTT, PT, CBC #### [facility] [address] CO2 [Moles/Vol] 26.2 mmol/L Normal 22.0-30.0 [facility] Comment on above: Performed By: #### B MP, PTT, PT, CBC #### [facility] [address] Creatinine [Mass/Vol] 1.21 mg/dL Normal 0.64-1.27 [facility] Comment on above: Performed By: #### B MP, PTT, PT, CBC #### [facility] [address] [place] [address] [place] Estimated GFR ( [place] > 60 Normal [facility] Comment on above: Result Comment: GFR estimated reference range: According to KDOQI guidelines, <60 ml/min/1.73m2 is sufficient to diagnose a patient with chronic kidney disease. Performed By: #### B MP, PTT, PT, CBC #### [facility] [address] Estimated GFR (Non- Am 59 Normal [facility] Comment on above: Performed By: #### B MP, PTT, PT, CBC #### [facility] [address] Glucose [Mass/Vol] 99 mg/dL Normal 70-100 [facility] Comment on above: Result Comment: [place] Glucose Reference Range is dependent on time and content of last meal. Glucose of more than 200 mg/dL in a nonstressed, ambulatory subject supports the diagnosis of Diabetes Mellitus. ADA recommended reference range Performed By: #### B MP, PTT, PT, CBC #### [facility] [address] Potassium [Moles/Vol] 4.4 mmol/L Normal 3.5-5.1 [facility] Comment on above: Performed By: #### B MP, PTT, PT, CBC #### [facility] [address] Sodium [Moles/Vol] 135 mmol/L Low 136-146 [facility] Comment on above: Performed By: #### B MP, PTT, PT, CBC #### [facility] [address] Urea nitrogen [Mass/Vol] 20 mg/dL Normal 9-23 [facility] Comment on above: Performed By: #### B MP, PTT, PT, CBC #### [facility] [address] Basophils Auto (Bld) [#/Vol] Ordered By: Lionel Carrington on 02-06-2022 Basophils (Bld) [#/Vol] 0.0 10*3/uL 0.0-0.2 [facility] Basophils/100 WBC Auto (Bld) Ordered By: Lionel Carrington on 02-06-2022 Basophils/100 WBC (Bld) 0.8 % . [facility] Blood hemoglobin measurement (mass/volume)Ordered By: Lionel Carrington on 02-06-2022 Hemoglobin (Bld) [Mass/Vol] 13.2 g/dL 13.0-17.0 [facility] Blood leukocytes automated c ount (number/volume)Ordered By: Lionel Carrington on 02-06-2022 WBC (Bld) [#/Vol] 5.7 10*3/uL 4.5-11.0 [facility] Complete Blood Count Auto Di ffon 02-06-2022 Basophils (Bld) [#/Vol] 0.0 10*3/uL Normal 0.0-0.2 [facility] Comment on above: Result Comment: PERF ORMED BY: [place] [address] PATHOLOGIST GEOPHYSICAL LABORATORY CHIEF DOMI FLOREZ M.D. Performed By: #### B MP, PTT, PT, CBC #### [address] Basophils/100 WBC (Bld) 0.8 % Normal . [facility] Comment on above: Performed By: #### B MP, PTT, PT, CBC #### [facility] [address] [place] [address] Eosinophils (Bld) [#/Vol] 0.1 10*3/uL Normal 0.0-0.45 [facility] Comment on above: Performed By: #### B MP, PTT, PT, CBC #### [address] Eosinophils/100 WBC (Bld) 1.7 % Normal . [facility] Comment on above: Performed By: #### B MP, PTT, PT, CBC #### [facility] [address] [place] [address] Erythrocyte distribution width (RBC) [Ratio] 14.2 % Normal 12.0-14.8 [facility] Comment on above: Performed By: #### B MP, PTT, PT, CBC #### [facility] [address] [place] [address] Hematocrit (Bld) [Volume fraction] 40.8 % Normal 38.8-50.0 [facility] Comment on above: Performed By: #### B MP, PTT, PT, CBC #### [facility] [address] [place] [address] Hemoglobin (Bld) [Mass/Vol] 13.2 g/dL Normal 13.0-17.0 [facility] Comment on above: Performed By: #### B MP, PTT, PT, CBC #### [address] Lymphocytes (Bld) [#/Vol] 1.6 10*3/uL Normal 1.00-4.8 [facility] Comment on above: Performed By: #### B MP, PTT, PT, CBC #### [address] Lymphocytes/100 WBC (Bld) 27.4 % Normal . [facility] Comment on above: Performed By: #### B MP, PTT, PT, CBC #### [address] MCH (RBC) [Entitic mass] 29.7 pg Normal 27.5-35.2 [facility] Comment on above: Performed By: #### B MP, PTT, PT, CBC #### [address] MCV (RBC) [Entitic vol] 91.6 fL Normal 83.5-101 [facility] Comment on above: Performed By: #### B MP, PTT, PT, CBC #### [address] Mean Corpuscular HGB Conc 32.4 g/dL Low 32.5-35.6 [facility] Comment on above: Performed By: #### B MP, PTT, PT, CBC #### [address] Monocytes (Bld) [#/Vol] 0.5 10*3/uL Normal 0.0-0.8 [facility] Comment on above: Performed By: #### B MP, PTT, PT, CBC #### [address] Monocytes/100 WBC (Bld) 8.7 % Normal . [facility] Comment on above: Performed By: #### B MP, PTT, PT, CBC #### [place] [address] [place] Neutrophils (Bld) [#/Vol] 3.5 10*3/uL Normal 1.8-7.7 [facility] Comment on above: Performed By: #### B MP, PTT, PT, CBC #### [address] Neutrophils/100 WBC (Bld) 61.4 % Normal . [facility] Comment on above: Performed By: #### B MP, PTT, PT, CBC #### [address] Nucleated RBC/100 WBC (Bld) [Ratio] 0.1 % Normal 0-0.5 [facility] Comment on above: Performed By: #### B MP, PTT, PT, CBC #### [address] Platelet mean volume (Bld) [Entitic vol] 8.4 fL Normal 6.6-10.1 [facility] Comment on above: Performed By: #### B MP, PTT, PT, CBC #### [place] [address] [place] Platelets (Bld) [#/Vol] 248 10*3/uL Normal 150-450 [facility] Comment on above: Performed By: #### B MP, PTT, PT, CBC #### [place] [address] [place] RBC (Bld) [#/Vol] 4.45 10*6/uL Normal 3.90-5.60 [facility] Comment on above: Performed By: #### B MP, PTT, PT, CBC #### [place] [address] [place] WBC (Bld) [#/Vol] 5.7 10*3/uL Normal 4.5-11.0 [facility] Comment on above: Performed By: #### B MP, PTT, PT, CBC #### [place] [id number] [place] Creatinine and Glomerular fi ltration rate.predicted panel (S/P/Bld)Ordered By: Linoel Carrington on 02-06-2022 Creatinine [Mass/Vol] 1.21 mg/dL 0.64-1.27 [facility] Eosinophils Auto (Bld) [#/Vo l]Ordered By: Lionel Carrington on 02-06-2022 Eosinophils (Bld) [#/Vol] 0.1 10*3/uL 0.0-0.45 [facility] Eosinophils/100 WBC Auto (Bl d)Ordered By: Lionel Carrington on 02-06-2022 Eosinophils/100 WBC (Bld) 1.7 % . [facility] Erythrocyte distribution wid th Auto (RBC) [Ratio]Ordered By: Lionel Carrington on 02-06-2022 Erythrocyte distribution width (RBC) [Ratio] 14.2 % 12.0-14.8 [facility] Estimated glomerular filtrat ion rate (GFR) non- AmericanOrdered By: Lionel Carrington on 02-06-2022 GFR/1.73 sq M.predicted among non-blacks MDRD (S/P/Bld) [Vol rate/Area] 59 mL/Min [facility] Hematocrit Auto (Bld) [Volum e fraction]Ordered By: Lionel Carrington on 02-06-2022 Hematocrit (Bld) [Volume fraction] 40.8 % 38.8-50.0 [facility] Laboratory - CoagulationOrde red By: Lionel Carrington on 02-06-2022 PT Coag (PPP) [Time] 11.0 s 9.0-12.9 [facility] Laboratory - Hematology and Cell countsOrdered By: Lionel Carrington on 02-06-2022 Nucleated RBC/100 WBC (Bld) [Ratio] 0.1 % 0-0.5 [facility] Lymphocytes Auto (Bld) [#/Vo l]Ordered By: Lionel Carrington on 02-06-2022 Lymphocytes (Bld) [#/Vol] 1.6 10*3/uL 1.00-4.8 [facility] Lymphocytes/100 WBC Auto (Bl d)Ordered By: Lionel Carrington on 02-06-2022 Lymphocytes/100 WBC (Bld) 27.4 % . [facility] MCH Auto (RBC) [Entitic mass ]Ordered By: Lionel Carrington on 02-06-2022 MCH (RBC) [Entitic mass] 29.7 pg 27.5-35.2 [facility] MCHC Auto (RBC) [Mass/Vol]Or dered By: Lionel Carrington on 02-06-2022 MCHC (RBC) [Mass/Vol] 32.4 g/dL 32.5-35.6 [facility] MCV Auto (RBC) [Entitic vol] Ordered By: Lionel Carrington on 02-06-2022 MCV (RBC) [Entitic vol] 91.6 fL 83.5-101 [facility] Monocytes Auto (Bld) [#/Vol] Ordered By: Lionel Carrington on 02-06-2022 Monocytes (Bld) [#/Vol] 0.5 10*3/uL 0.0-0.8 [facility] Monocytes/100 WBC Auto (Bld) Ordered By: Lionel Carrington on 02-06-2022 Monocytes/100 WBC (Bld) 8.7 % . [facility] Neutrophils Auto (Bld) [#/Vo l]Ordered By: Lionel Carrington on 02-06-2022 Neutrophils (Bld) [#/Vol] 3.5 10*3/uL 1.8-7.7 [facility] Neutrophils/100 WBC Auto (Bl d)Ordered By: Lionel Carrington on 02-06-2022 Neutrophils/100 WBC (Bld) 61.4 % . [facility] No Panel InformationOrdered By: Lionel Carrington on 02-06-2022 Estimated GFR () > 60 mL/Min [facility] Comment on above: GFR estimated refere nce range: According to KDOQI guidelines, <60 ml/min/1.73m2 is sufficient to diagnose a patient with chronic kidney disease. Pharmacy Creatinine Clearance (Chem N/A [facility] Partial Thromboplastin Timeo n 02-06-2022 aPTT Coag (Bld) [Time] 34.8 s Normal 25.1-36.5 [facility] Comment on above: Result Comment: PERF ORMED BY: [facility] [address] [place] [address] PATHOLOGIST GEOPHYSICAL LABORATORY CHIEF DOMI FLOREZ M.D. Performed By: #### B MP, PTT, PT, CBC #### [facility] [address] Platelet mean volume Auto (B ld) [Entitic vol]Ordered By: Lionel Carrington on 02-06-2022 Platelet mean volume (Bld) [Entitic vol] 8.4 fL 6.6-10.1 [facility] Platelet poor plasma interna tional normalized ratio (INR) by coagulation assay (relatOrdered By: Lionel Carrington on 02-06-2022 INR Coag (PPP) [Relative time] 1.0 {INR} [facility] Comment on above: INR Therapeutic Rang e [...] 02-06-2022 Platelets (Bld) [#/Vol] 248 10*3/uL 150-450 [facility] Prothrombin Time INRon 02-06 INR Coag (PPP) [Relative time] 1.0 {INR} Normal [facility] Comment on above: Result Comment: INR Therapeutic [...] #### B MP, PTT, PT, CBC #### [facility] [address] PT Coag (PPP) [Time] 11.0 s Normal 9.0-12.9 [facility] Comment on above: Performed By: #### B MP, PTT, PT, CBC #### [facility] [address] RBC Auto (Bld) [#/Vol]Ordere d By: Lionel Carrington on 02-06-2022 RBC (Bld) [#/Vol] 4.45 10*6/uL 3.90-5.60 [facility] Serum or plasma calcium eliezer urement (mass/volume)Ordered By: Lionel Carrington on 02-06-2022 Calcium [Mass/Vol] 9.7 mg/dL 8.2-10.2 [facility] Serum or plasma chloride sammy surement (moles/volume)Ordered By: Lionel Carrington on 02-06-2022 Chloride [Moles/Vol] 99 mmol/L 95-114 [facility] Serum or plasma glucose eliezer urement (mass/volume)Ordered By: Lionel Carrington on 02-06-2022 Glucose [Mass/Vol] 99 mg/dL 70-100 [facility] Comment on above: ADA recommended refe rence range Random Glucose Reference Range is dependent on time and content of last meal. Glucose of more than 200 mg/dL in a nonstressed, ambulatory subject supports the diagnosis of Diabetes Mellitus. Serum or plasma potassium me asurement (moles/volume)Ordered By: Lionel Carrington on 02-06-2022 Potassium [Moles/Vol] 4.4 mmol/L 3.5-5.1 [facility] Serum or plasma sodium measu rement (moles/volume)Ordered By: Lionel Carrington on 02-06-2022 Sodium [Moles/Vol] 135 mmol/L 136-146 [facility] Serum or plasma total carbon dioxide measurement (moles/volume)Ordered By: Lionel Carrington on 02-06-2022 CO2 [Moles/Vol] 26.2 mmol/L 22.0-30.0 [facility] Serum or plasma urea nitroge n measurement (mass/volume)Ordered By: Lionel Carrington on 02-06-2022 Urea nitrogen [Mass/Vol] 20 mg/dL 9-23 [facility] COVID-19 Positive/NegativeOr dered By: Lionel Carrington on 10-27-2021 SARS-CoV-2 (COVID-19) N gene REX+probe Ql (Resp) Negative Negative [facility] Comment on above: Testing for SARS-CoV -2 by RT-PCR This test was developed and its performance characteristics determined by [employer] and validated at the [facility]. This test has not been FDA cleared [...] aPTT Coag (PPP) [Time] 36.2 s 25.1-36.5 [facility] Basophils Auto (Bld) [#/Vol] Ordered By: Lionel Carrington on 10-17-2021 Basophils (Bld) [#/Vol] 0.0 10*3/uL 0.0-0.2 [facility] Basophils/100 WBC Auto (Bld) Ordered By: Lionel Carrington on 10-17-2021 Basophils/100 WBC (Bld) 0.6 % [facility] Blood hemoglobin measurement (mass/volume)Ordered By: Lionel Carrington on 10-17-2021 Hemoglobin (Bld) [Mass/Vol] 13.6 g/dL 13.0-17.0 [facility] Blood leukocytes automated c ount (number/volume)Ordered By: Lionel Carrington on 10-17-2021 WBC (Bld) [#/Vol] 5.9 10*3/uL 4.5-11.0 [facility] Creatinine and Glomerular fi ltration rate.predicted panel (S/P/Bld)Ordered By: Lionel Carrington on 10-17-2021 Creatinine [Mass/Vol] 0.96 mg/dL 0.64-1.27 [facility] Eosinophils Auto (Bld) [#/Vo l]Ordered By: Lionel Carrington on 10-17-2021 Eosinophils (Bld) [#/Vol] 0.1 10*3/uL 0.0-0.45 [facility] Eosinophils/100 WBC Auto (Bl d)Ordered By: Lionel Carrington on 10-17-2021 Eosinophils/100 WBC (Bld) 2.0 % [facility] Erythrocyte distribution wid th Auto (RBC) [Ratio]Ordered By: Lionel Carrington on 10-17-2021 Erythrocyte distribution width (RBC) [Ratio] 14.5 % 12.0-14.8 [facility] Estimated glomerular filtrat ion rate (GFR) non- AmericanOrdered By: Lionel Carrington on 10-17-2021 GFR/1.73 sq M.predicted among non-blacks MDRD (S/P/Bld) [Vol rate/Area] > 60 mL/Min [facility] Hematocrit Auto (Bld) [Volum e fraction]Ordered By: Lionel Carrington on 10-17-2021 Hematocrit (Bld) [Volume fraction] 41.5 % 38.8-50.0 [facility] Laboratory - CoagulationOrde red By: Lionel Carrington on 10-17-2021 PT Coag (PPP) [Time] 11.0 s 9.0-12.9 [facility] Laboratory - Hematology and Cell countsOrdered By: Lionel Carrington on 10-17-2021 Nucleated RBC/100 WBC (Bld) [Ratio] 0.0 % 0-0.5 [facility] Lymphocytes Auto (Bld) [#/Vo l]Ordered By: Lionel Carrington on 10-17-2021 Lymphocytes (Bld) [#/Vol] 1.6 10*3/uL 1.00-4.8 [facility] Lymphocytes/100 WBC Auto (Bl d)Ordered By: Lionel Carrington on 10-17-2021 Lymphocytes/100 WBC (Bld) 26.8 % [facility] MCH Auto (RBC) [Entitic mass ]Ordered By: Lionel Carrington on 10-17-2021 MCH (RBC) [Entitic mass] 29.3 pg 27.5-35.2 [facility] MCHC Auto (RBC) [Mass/Vol]Or dered By: Lionel Carrington on 10-17-2021 MCHC (RBC) [Mass/Vol] 32.7 g/dL 32.5-35.6 [facility] MCV Auto (RBC) [Entitic vol] Ordered By: Lionel Carrington on 10-17-2021 MCV (RBC) [Entitic vol] 89.8 fL 83.5-101 [facility] Monocytes Auto (Bld) [#/Vol] Ordered By: Lionel Carrington on 10-17-2021 Monocytes (Bld) [#/Vol] 0.6 10*3/uL 0.0-0.8 [facility] Monocytes/100 WBC Auto (Bld) Ordered By: Lionel Carrington on 10-17-2021 Monocytes/100 WBC (Bld) 10.6 % [facility] Neutrophils Auto (Bld) [#/Vo l]Ordered By: Lionel Carrington on 10-17-2021 Neutrophils (Bld) [#/Vol] 3.5 10*3/uL 1.8-7.7 [facility] Neutrophils/100 WBC Auto (Bl d)Ordered By: Lionel Carrington on 10-17-2021 Neutrophils/100 WBC (Bld) 60.0 % [facility] No Panel InformationOrdered By: Lionel Carrington on 10-17-2021 Estimated GFR () > 60 mL/Min [facility] Comment on above: GFR estimated refere nce range: According to KDOQI guidelines, <60 ml/min/1.73m2 is sufficient to diagnose a patient with chronic kidney disease. Pharmacy Creatinine Clearance (Chem N/A [facility] Platelet mean volume Auto (B ld) [Entitic vol]Ordered By: Lionel Carrington on 10-17-2021 Platelet mean volume (Bld) [Entitic vol] 8.3 fL 6.6-10.1 [facility] Platelet poor plasma interna tional normalized ratio (INR) by coagulation assay (relatOrdered By: Lionel Carrington on 10-17-2021 INR Coag (PPP) [Relative time] 1.0 {INR} [facility] Comment on above: INR Therapeutic Rang e [...] 10-17-2021 Platelets (Bld) [#/Vol] 249 10*3/uL 150-450 [facility] RBC Auto (Bld) [#/Vol]Ordere d By: Lionel Carrington on 10-17-2021 RBC (Bld) [#/Vol] 4.62 10*6/uL 3.90-5.60 [facility] Serum or plasma calcium eliezer urement (mass/volume)Ordered By: Lionel Carrington on 10-17-2021 Calcium [Mass/Vol] 9.7 mg/dL 8.2-10.2 [facility] Serum or plasma chloride sammy surement (moles/volume)Ordered By: Lionel Carrington on 10-17-2021 Chloride [Moles/Vol] 101 mmol/L 95-114 [facility] Serum or plasma glucose eliezer urement (mass/volume)Ordered By: Lionel Carrington on 10-17-2021 Glucose [Mass/Vol] 87 mg/dL 70-100 [facility] Comment on above: ADA recommended refe rence range Random Glucose Reference Range is dependent on time and content of last meal. Glucose of more than 200 mg/dL in a nonstressed, ambulatory subject supports the diagnosis of Diabetes Mellitus. Serum or plasma potassium me asurement (moles/volume)Ordered By: Lionel Carrington on 10-17-2021 Potassium [Moles/Vol] 4.4 mmol/L 3.5-5.1 [facility] Serum or plasma sodium measu rement (moles/volume)Ordered By: Lionel Carrington on 10-17-2021 Sodium [Moles/Vol] 136 mmol/L 136-146 [facility] Serum or plasma total carbon dioxide measurement (moles/volume)Ordered By: Lionel Carrington on 10-17-2021 CO2 [Moles/Vol] 25.6 mmol/L 22.0-30.0 [facility] Serum or plasma urea nitroge n measurement (mass/volume)Ordered By: Lionel Carrington on 10-17-2021 Urea nitrogen [Mass/Vol] 18 mg/dL 03-13 [facility] Vital Signs Date Time Vital Sign Value Performing Clinician Facility 02-10-2023 14:16-0400 Blood Pressure Location [email or web address] [place] 02-10-2023 14:16-0400 Diastolic blood pressure 80 mm[Hg] [email or web address] 02-10-2023 14:16-0400 Heart rate 70 /min [email or web address] 02-10-2023 14:16-0400 Respiratory rate 16 /min [email or web address] 02-10-2023 14:16-0400 Systolic blood pressure 124 mm[Hg] [email or web address] 12-03-2022 10:20-0400 Body height 182.88 cm Zoran Chavez Other [employer] Other 12-03-2022 10:20-0400 Body mass index (BMI) [Ratio] 25.49 kg/m2 Zoran Chavez Other [facility] Other 12-03-2022 10:20-0400 Body weight 85.28 kg Zoran Chavez Other [facility] Other 10-22-2022 10:20-0400 Body height 182.88 cm Zoran Chavez Other [employer] Other 10-22-2022 10:20-0400 Body mass index (BMI) [Ratio] 25.63 kg/m2 Zoran Chavez Other [employer] Other 10-22-2022 10:20-0400 Body weight 85.73 kg Zoran Chavez Other [employer] Other 10-22-2022 10:20-0400 Diastolic blood pressure 80 mm[Hg] Zoran Chavez Other [facility] Other 10-22-2022 10:20-0400 Systolic blood pressure 110 mm[Hg] Zoran Chavez Other [facility] Other 02-24-2022 10:43-0400 Blood Pressure Location Lionel CARRINGTON [facility] 02-24-2022 10:43-0400 Diastolic blood pressure 80 mm[Hg] Lionel CARRINGTON [facility] 02-24-2022 10:43-0400 Heart rate 65 /min Lionel CARRINGTON [facility] 02-24-2022 10:43-0400 Respiratory rate 16 /min Lionel CARRINGTON [facility] 02-24-2022 10:43-0400 Systolic blood pressure 140 mm[Hg] Lionel CARRINGTON [facility] 02-17-2022 15:15-0400 Diastolic blood pressure 83 mm[Hg] MD Yolande Staley Work Phone: [facility] 02-17-2022 15:15-0400 Heart rate 58 /min MD Yolande Staley Work Phone: [facility] 02-17-2022 15:15-0400 Respiratory rate 16 /min MD Yolande Staley Work Phone: [facility] 02-17-2022 15:15-0400 SaO2% (BldA) [Mass fraction] 95 % MD Yolande Staley Work Phone: [facility] 02-17-2022 15:15-0400 Systolic blood pressure 166 mm[Hg] MD Yolande Staley Work Phone: [facility] 02-17-2022 14:30-0400 Body height 182.88 cm MD Yolande Staley Work Phone: [facility] 02-17-2022 14:30-0400 Body mass index (BMI) [Ratio] 26.2 kg/m2 MD Yolande Staley Work Phone: [facility] 02-17-2022 14:30-0400 Body weight 87.7 kg MD Yolande Staley Work Phone: [facility] 02-17-2022 14:17-0400 Body temperature 97.6 [degF] MD Yolande Staley Work Phone: [facility] 02-17-2022 13:52-0400 Inhaled oxygen flow rate 10 L/min MD Yolande Staley Work Phone: [facility] 10-17-2021 11:42-0400 Body height 180.34 cm MD Yolande Staley Work Phone: [facility] 10-17-2021 11:42-0400 Body mass index (BMI) [Ratio] 27 kg/m2 MD Yolande Staley Work Phone: [facility] 10-17-2021 11:42-0400 Body temperature 98.4 [degF] MD Yolande Staley Work Phone: [facility] 10-17-2021 11:42-0400 Body weight 88 kg MD Yolande Staley Work Phone: [facility] 10-17-2021 11:42-0400 Diastolic blood pressure 90 mm[Hg] MD Yolande Staley Work Phone: [facility] 10-17-2021 11:42-0400 Heart rate 64 /min MD Yolande Staley Work Phone: [facility] 10-17-2021 11:42-0400 SaO2% (BldA) [Mass fraction] 100 % MD Yolande Staley Work Phone: [facility] 10-17-2021 11:42-0400 Systolic blood pressure 172 mm[Hg] MD Yolande Staley Work Phone: [facility] Encounters Encounter Date Encounter Type Care Provider Facility Start: 07-26-2023 End: 07-27-2023 ambulatory Dereck Osman MD Facility: [facility] Start: 04-27-2023 End: 04-28-2023 ambulatory Lionel CARRINGTON Facility:[facility] Start: 04-27-2023 End: 04-27-2023 Patient encounter procedure Lionel CARRINGTON [facility] Start: 03-15-2023 End: 03-16-2023 ambulatory Dereck Osman MD Facility:[facility] Start: 03-10-2023 End: 03-11-2023 ambulatory Qamar SMITH Facility:CD:[id number] Start: 02-10-2023 End: 02-11-2023 ambulatory Qamar R LUIS Facility: [facility] Start: 02-10-2023 End: 02-10-2023 Patient encounter procedure Qamar BOWERSL [facility] [place] Start: 01-20-2023 End: 01-21-2023 ambulatory Lionel CARRINGTON Facility: [facility] Start: 01-14-2023 End: 01-15-2023 ambulatory Lionel CARRINGTON Facility:CD:[id number] Start: 01-05-2023 End: 01-06-2023 ambulatory Lionel CARRINGTON Facility:[facility] Start: 01-05-2023 End: 01-05-2023 Patient encounter procedure Lionel CARRINGTON [facility] Start: 01-01-2023 End: 01-01-2023 ambulatory Yolande Staley Facility:[facility] Start: 01-01-2023 End: 01-01-2023 ambulatory MD Yolande Staley Work Phone: [facility] Work Phone: Start: 01-01-2023 End: 01-01-2023 Patient encounter procedure MD Yolande Staley Work Phone: [facility] [place] Work Phone: Start: 12-28-2022 End: 12-29-2022 [facility]ulatory [facility] Start: 12-14-2022 End: 12-15-2022 ambulatory Dereck Osman MD Facility: [facility] Start: 12-03-2022 End: 12-03-2022 ambulatory Zoran Chavez Other [employer] Other Start: 12-03-2022 Office outpatient visit 15 minutes Zoran Chavez [facility] Start: 11-20-2022 End: 11-21-2022 ambulatory DERECK OSMAN Facility:[facility] Start: 10-28-2022 End: 10-29-[address] NELLY HERRERA Facility:[facility] Start: 10-27-2022 End: 11-18-[address] ZORAN CHAVEZ Facility:[facility] Start: 10-23-2022 End: 10-24-[address] ZORAN CHAVEZ Facility:[facility] Start: 10-22-2022 End: 10-22-2022 ambulatory Zoran Chavez Other [employer] Other Start: 10-22-2022 Office outpatient visit 15 minutes Zoran Chavez [facility] Start: 10-05-2022 End: 10-06-[address] YOLANDE STALEY . Facility:[facility] Start: 09-29-2022 End: 09-30-2022 ambulatory Lionel CARRINGTON Facility:[facility] Start: 09-24-2022 End: 09-25-[address] YOLANDE STALEY . Facility: Start: 09-21-2022 End: 09-22-[address] LIONEL CARRINGTON . Facility: Start: 09-21-2022 End: 09-22-2022 ambulatory Lionel CARRINGTON Facility:[facility] Start: 09-21-2022 End: 09-21-2022 Patient encounter procedure Lionel CARRINGTON [facility] Start: 08-19-2022 End: 08-20-[address] LIONEL CARRINGTON . Facility: Start: 08-17-2022 End: 08-18-2022 ambulatory Lionel CARRINGTON Facility:[facility] Start: 08-17-2022 End: 08-17-2022 Patient encounter procedure Lionel CARRINGTON [facility] Start: 08-04-2022 End: 08-05-[address] YOLANDE STALEY . Facility: Start: 07-28-2022 End: 07-29-[address] YOLANDE STALEY . Facility: Start: 07-23-2022 End: 07-23-[address] LIONEL CARRINGTON . Facility: Start: 07-20-2022 End: 07-21-2022 ambulatory Lionel CARRINGTON Facility:[facility] Start: 07-20-2022 End: 07-20-2022 Patient encounter procedure Lionel CARRINGTON [facility] Start: 07-07-2022 End: 07-08-2022 ambulatory Lionel CARRINGTON Facility:[facility] Start: 07-07-2022 End: 07-07-2022 Patient encounter procedure Lionel CARRINGTON [facility] Start: 06-30-2022 End: 07-01-[address] YOLANDE STALEY . Facility:[facility] Start: 06-04-2022 End: 06-04-[address] YOLANDE STALEY . Facility:[facility] Start: 05-25-2022 End: 05-26-[address] YOLANDE STALEY . Facility:[facility] Start: 05-18-2022 End: 05-18-2022 Patient encounter procedure Lionel CARRINGTON [facility] Start: 04-27-2022 End: 04-28-[address] YOLANDE STALEY . Facility:[facility] Start: 04-18-2022 End: 04-18-[address] FELICIA GALDAMEZ . Facility:[facility] Start: 04-15-2022 End: 04-15-2022 Patient encounter procedure Lionel CARRINGTON [facility] Start: 03-26-2022 End: 03-26-[address] LIONEL CARRINGTON . Facility:[facility] Start: 03-12-2022 End: 03-13-[address] YOLANDE STALEY . Facility:[facility] Start: 03-09-2022 End: 03-09-2022 Patient encounter procedure Lionel CARRINGTON [facility] Start: 02-27-2022 End: 02-27-2022 Lab Drop off Lionel CARRINGTON [facility] Start: 02-27-2022 End: 02-27-2022 Patient encounter procedure Lionel CARRINGTON [facility] Start: 02-24-2022 End: 02-24-2022 Patient encounter procedure Lionel CARRINGTON [facility] Start: 02-17-2022 End: 02-17-2022 ambulatory Lionel Carrington Facility:[facility] Start: 02-17-2022 End: 02-17-2022 Admission to same day surgery center MD [facility]ande Staley [facility] [place] Start: 02-13-2022 End: 02-13-2022 ambulatory Lionel Carrington Facility:[facility] Start: 02-13-2022 End: 02-13-2022 Patient encounter procedure MD Yolande Staley Work Phone: [facility] Start: 02-06-2022 End: 02-06-2022 ambulatory Lionel Carrington Facility:[facility] Start: 02-06-2022 End: 02-06-2022 Patient encounter procedure MD Yolande Staley Work Phone: [facility] Start: 11-11-2021 End: 11-11-2021 Patient encounter procedure Lionel CARRINGTON [facility] Start: 11-05-2021 End: 11-05-2021 Patient encounter procedure Lionel CARRINGTON [facility] [place] Start: 10-29-2021 End: 10-29-2021 Admission to same day surgery center MD [facility]olande Staley [facility] [place] [place] Start: 10-27-2021 End: 10-27-2021 Patient encounter procedure MD Yolande Staley Work Phone: [facility] Start: 10-17-2021 End: 10-17-2021 Patient encounter procedure MD Yolande Staley Work Phone: [facility] Procedures Date Procedure Procedure Detail Performing Clinician Start: 01-01-2023 MR lumbar spine wo con MD Yolande Staley Work Phone: Start: 09-21-[address] NELLY HERRERA Comment on above: Performed By: #### P SAD #### [facility] [address] [place] [address] Dr. Johnna Dixon Start: 02-17-2022 Transurethral resect [...] CARRINGTON Comment on above: had recently at [place] Start: 05-21-2014 Colonoscopy Qamar DOSS Start: 06-21-2010 [...] Facility:[facility] [place] Start: 02-17-2022 End: 02-17-2022 [facility] Work Phone: Start: 02-17-2022 Transurethral resect ion of bladder neoplasm OR Cysto/TURBT/Bladder Biopsy/Fulg (Not Applicable) [facility] Start: 02-17-2022 End: 02-17-2022 Admission to same day surgery center Departed Surgical Day Care [facility] [place] Start: 02-13-2022 End: 02-13-2022 Patient encounter procedure Departed Clinical [facility] Patient referral [facility] Work Phone: Immunizations Immunization Date Immunization Notes Care Provider [facility] 04-16-2022 SARS-CoV-2 (COVID-19 ) [id number] Qamar SMITH [facility] 03-27-2022 influenza virus vacc ine, unspecified formulation Qamar SMITH [facility] 05-06-2021 COVID-19 mRNA-1273 (Huma) MD Yolande Staley Work Phone: [facility] 09-19-2020 COVID-19 mRNA-1273 (Huma) MD Yolande Staley Work Phone: [facility] Comment on above: Result Comment: 2022: [id number] 08-22-2020 COVID-19 mRNA-1273 (Moderna) MD Yolande Staley Work Phone: [facility] Comment on above: Result Comment: 2022: TPV65 06-21-2020 SARS-CoV-2 (COVID-19 ) mRNA-1273 vaccine Lionel CARRINGTON [facility] 05-23-2020 influenza virus vacc ine, unspecified formulation ooma [facility] 04-03-2020 influenza virus vacc ine, unspecified formulation ooma [facility] 05-29-2019 influenza virus vacc ine, unspecified formulation o[place] [facility] 04-14-2019 influenza, unspecifi ed formulation [place] [facility] 09-26-2018 tetanus and diphther ia toxoids, adsorbed, preservative free, for adult use (2 Lf of tetanus toxoid and 2 Lf of diphtheria toxoid) [email or web address] [facility] 10-11-2017 pneumococcal polysaccharide vaccine, 23 valent [place] [facility] 07-22-2016 pneumococcal conjuga te vaccine, 13 valent [place] [facility] 06-29-2013 tetanus toxoid, redu mirtha diphtheria toxoid, and acellular pertussis vaccine, adsorbed [place] [facility] 03-10-2000 Td(adult) unspecifie d formulation [place] [facility] Payers Date Payer Category Payer Unknown 2022 Self-pay [id number] 1958 Medicare [id number] 1958 Unknown [id number] 2.16.840.1.747628.19 1951 Unknown [id number] 2.16.840.1.858384.3.579.2. 593 1951 Unknown [id number] 2.16.840.1.673808.3.579.2. 593 1951 Unknown [id number] 2.16.840.1.791389.3.579.2. 593 1951 Unknown [id number] 2.16.840.1.093545.3.579.2. 593 1951 Unknown [id number] 2.16.840.1.380321.3.579.2. 593 1951 Unknown [id number] 2.16.840.1.014567.3.579.2. 593 1951 Unknown [id number] 2.16.840.1.834665.3.579.2. 593 1951 Unknown [id number] 2.16.840.1.135635.3.579.2. 593 1951 Unknown [id number] 2.16.840.1.332055.3.579.2. 593 1951 Unknown [id number] 2.16.840.1.127884.3.579.2. 593 1951 Unknown [id number] 2.16.840.1.775030.3.579.2. 593 1951 Unknown [id number] 2.16.840.1.005318.3.579.2. 593 1951 Unknown [id number] 2.16.840.1.901357.3.579.2. 593 1951 Unknown [id number] 2.16.840.1.487627.3.579.2. 593 1951 Unknown [id number] 2.16.840.1.096307.3.579.2. 593 1951 Unknown [id number] 2.16.840.1.847633.3.579.2. 593 1951 Unknown [id number] 2.16.840.1.895872.3.579.2. 593 1951 Unknown [id number] 2.16.840.1.966355.3.579.2. 593 1951 Unknown [id number] 2.16.840.1.895225.3.579.2. 593 1951 Unknown [id number] 2.16.840.1.678110.3.579.2. 727 1951 Unknown [id number] 2.16.840.1.188096.3.579.2. 727 1951 Unknown [id number] 2.16.840.1.623134.3.579.2. 727 1951 Unknown [id number] 2.16.840.1.151871.3.579.2. 727 1951 Unknown [id number] 2.16.840.1.201764.3.579.2. 727 1951 Unknown [id number] 2.16.840.1.100038.3.579.2. 727 1951 Unknown [id number] 2.16.840.1.174565.3.579.2. 727 1951 Unknown [id number] 2.16.840.1.837183.3.579.2. 727 1951 Unknown [id number] 2.16.840.1.959553.3.579.2. 727 1951 Unknown [id number] 2.16.840.1.408607.3.579.2. 727 1951 Unknown [id number] 2.16.840.1.025332.3.579.2. 72 1951 Unknown [id number] 2.16.840.1.282296.3.579.2. 727 1951 Unknown [id number] 2.16.840.1.076850.3.579.2. 72 1951 Unknown [id number] 2.16.840.1.120801.3.579.2. 72 1951 Unknown [id number] 2.16840.1.412760.3.579.2. 196 1951 Unknown [id number] 2.16.840.1.297256.3.579.2. 196 1951 Unknown [id number] 2.16.840.1.953776.3.579.2. 196 1951 Unknown [id number] 2.16840.1.194152.3.579.2. 196 1951 Unknown [id number] 2.16840.1.159336.3.579.2. 196 Medicare Medicare [id number] Private Health Insurance [id number] Unknown [place] [id number] Unknown [id number] 2.16840.1.678652.3.579.2. 531 Unknown [id number] 2.840.1.236561.3.579.2. 531 Unknown [id number] 2.16.840.1.392939.3.579.2. 531 Unknown [id number] 2.16.840.1.186894.3.579.2. 531 Social History Date Type Detail Facility Start: 10-17-2021 End: 02-10-2023 Tobacco smoking status NHIS Ex-smoker (finding) [facility] Comment on above: pt quit smoking 10+ yrs ago Start: 1950 Sex Assigned At Male [facility] Start: 11-05-2021 Tobacco smoking status Never s moked tobacco (finding) [facility] Tobacco smoking status Never [facility] Comment on above: pt quit smoking 10+ yrs ago Sex Assigned At Male [facility] Medical Equipment Procedure Code Equipment Code Equipment Original Text Equipment Identifier Dates Transurethral resection of bladder tumor (TURBT) with cystoscopy Polymeric ureteral stent ()[id number] FDA Start: 10-29-2021 Decompression, spine, cervical, posterior approach Bone-screw internal spinal fixation system, non-sterile ()[id number] FDA Start: 04-18-2020 Decompression, spine, cervical, posterior approach Bone-screw internal spinal fixation system, non-sterile ()[id number] FDA Start: 04-18-2020 Decompression, spine, cervical, posterior approach Bone-screw internal spinal fixation system, non-sterile ()[id number] FDA Start: 04-18-2020 Decompression, spine, cervical, posterior approach Bone-screw internal spinal fixation system, non-sterile ()[id number] FDA Start: 04-18-2020 Decompression, spine, cervical, posterior approach Bone-screw internal spinal fixation system, non-sterile ()[id number] FDA Start: 04-18-2020 Goals Date Patient Goal Desired Activity /State Functional Status Date Assessment Result Facility 04-27-2023 Functional Status N/A [facility] 02-10-2023 Functional Status N/A [facility] [place] 01-05-2023 Functional Status N/A [facility] 02-24-2022 Functional Status N/A [facility] Clinical Notes 11-04-2021 to 04-27-2023 Note Date & Type Note Facility 04-27-2023 Note [id number] [facility] 04-27-2023 Hospital Discharge instructions Patient Education [...] Address: [facility] [address] [place] [address]- Business (1) When: Unknown Comments:Office will call to schedule follow up [facility] 04-27-2023 Note Custom Cystoscopy ? Voiding after [...] you have a fever over 100 degrees. [facility] 02-10-2023 Note Chief Complaint consultation for [...] Cervical vertebral fu (more content not included)... [facility] Comment on above: Result Comment: Elec tronically Signed By: LUIS NOBLE, Qamar Ernandez\Date and Time Signed: 02/10/23 15:05 EDT 01-05-2023 Note [id number]:127 [facility] 01-05-2023 Hospital Discharge instructions Patient Education [...] [facility] [address], [place] [address]- Business (1) When: Unknown Comments:Office will call to schedule follow up [facility] 01-05-2023 Note Custom Cystoscopy ? Voiding after [...] you have a fever over 100 degrees. [facility] 12-03-2022 Evaluation note Encounter Date Diagnosis [...] M46.1) Nov, Neurogenic claudication (ICD-10 - R29.818) [employer] Other 05-04-2023 Evaluation note* Encounter Date Diagnosis [...] spine October, Neurogenic claudication (ICD-10 - R29.818) [employer] Other [id number] Note [id number]:127[facility] 09-29-2022 NoteCustom Cystoscopy ? Voiding after the [...] if you have a fever over 100 degrees.[facility] 09-21-2022 Hospital Discharge instructions Patient Education [...] if anything looks unusual. Men with a nsbsyn-hhfh-vtfmln risk for skin cancer may want to see a roll skinner (chief digital media officer) for an annual body check. Where to find more information National Cancer Webster: https://www.cancer.gov/about-cancer/screening Centers for Disease Control and Prevention: https://www.cdc.gov/cancer/dcpc/prevention/screening.htm [employer]: https://www.cancer.org/latest-news/1-ptojxq-pggskrvck-dhkvm-afo-blg.html Contact a health care provider if: You [...] 03/04/2017 Document Revised: 02/24/2019 Document Reviewed: 03/04/2017 [employer] Patient Education 2020 [employer] Follow Up Care 09/19/2021 11:05:08 With:DEVONTE NOBLE, Lionel Burgos, URL Address: [facility] [address] [place] [address]- When: Unknown [facility] 01-18-2023 Note [id number]:127[facility] 07-07-2022 Hospital Discharge instructions Patient Education 07/07/2022 [...] CARRINGTON Address: [facility] [address] [place] [address]- Business (1) When: Unknown Comments:Office will call to schedule follow up [facility]01-17-2023 NoteCustom Cystoscopy ? Voiding after the procedure: [...] if you have a fever over 100 degrees.[facility] 02-24-2022 Hospital Discharge instructions Patient Education [...] if anything looks unusual. Men with a ekvtqx-wkaq-mhcitq risk for skin cancer may want to see a roll skinner (chief digital media officer) for an annual body check. Where to find more information National Cancer Webster: https://www.cancer.gov/about-cancer/screening Centers for Disease Control and Prevention: https://www.cdc.gov/cancer/dcpc/prevention/screening.htm [employer]: https://www.cancer.org/latest-news/5-qpkxvl-qkcxkdiww-otszw-sst-lgl.html Contact a health care provider if: You [...] 03/04/2017 Document Revised: 02/24/2019 Document Reviewed: 03/04/2017 [employer] Patient Education 2020 [employer]. Follow Up Care 02/05/2022 13:48:40 With:DEVONTE NOBLE, Lionel Burgos, URL Address: [facility] [address] [place] [address] [id number] When: Unknown [facility] 05-24-2022 Hospital Discharge instructions Patient Education [...] CARRINGTON Address: [facility] [address] [place] [address] Business (1) When: Unknown Comments:Keep scheduled appointment [facility]05[facility]2022 Hospital Discharge instructions Patient Education 11/04/2021 14:11:16 [...] who: Are older than age 65. Are -Irish. Are obese. Have a family history of [...] cells. Follow these instructions at home: Take lqcs-gch-cqdkoul and prescription medicines only as told by [...] 06/07/2006 Document Revised: 05/20/2018 Document Reviewed: 02/15/2017 [employer] Patient Education 2020 [employer]. Follow Up Care 10/14/2021 11:26:04 With:CARRINGTON Lionel NOBLE, URL Address: [facility] [address], [place] [address]- When: Unknown [facility] Evaluation + Plan note Future Appointments Appointment Date:09/21/2022 09:45:00 AM Scheduled Provider:Lionel CARRINGTON MD Location:[facility] [place] Appointment Type:URO Office Visit [facility] Evaluation + Plan note Future Appointments Appointment Date:03/09/2022 09:00:00 AM Scheduled Provider: Location:[facility] [place] Appointment Type:URO Nurse Visit Appointment Date:04/15/2022 09:00:00 AM Scheduled Provider: Location:[facility] Appointment Type:URO Nurse Visit Appointment Date:09/21/2022 09:45:00 AM Scheduled Provider:Lionel CARRINGTON MD Location:[facility] [place] Appointment Type:URO Office Visit [facility] Evaluation + Plan note Future Appointments Appointment Date:03/09/2022 09:00:00 AM Scheduled Provider: Location:[facility] [place] Appointment Type:URO Nurse Visit Appointment Date:04/15/2022 09:00:00 AM Scheduled Provider: Location:[facility] [place] Appointment Type:URO Nurse Visit Appointment Date:09/21/2022 09:45:00 AM Scheduled Provider:Lionel CARRINGTON MD Location:[facility] [place] Appointment Type:URO Office Visit Diagnostic Tests Pending * Urine Culture [facility] Future Appointments Appointment Date:04/15/2022 09:00:00 AM Scheduled Provider: Location:[facility] Appointment Type:URO Nurse Visit Appointment Date:09/21/2022 09:45:00 AM Scheduled Provider:Lionel CARRINGTON MD Location:[facility] [place] Appointment Type:URO Office Visit [facility] evaluation + Plan note Future Appointments Appointment Date:07/20/2022 10:00:00 AM Scheduled Provider: Location:[facility] Appointment Type:URO Nurse Visit Appointment Date:08/17/2022 10:00:00 AM Scheduled Provider: Location:[facility] Appointment Type:URO Nurse Visit Appointment Date:09/21/2022 09:45:00 AM Scheduled Provider:Lionel CARRINGTON MD Location:[facility] Appointment Type:URO Office Visit Diagnostic Tests Pending * [facility] FISH ([facility]) 07[facility]07/22 [facility] Future Appointments Appointment Date:08/17/2022 10:00:00 AM Scheduled Provider: Location:[facility] Appointment Type:URO Nurse Visit Appointment Date:09/21/2022 09:45:00 AM Scheduled Provider:Lionel CARRINGTON MD Location:[facility] Appointment Type:URO Office Visit [facility] Evaluation + Plan note Future Appointments Appointment Date:09/22/2022 02:00:00 PM Scheduled Provider: Location:[facility] Appointment Type:Urology CALL PAT FT Appointment Date:09/29/2022 11:15:00 AM Scheduled Provider: Location:[facility] Appointment Type:Urology FT [facility] evaluation + Plan note Future Appointments Appointment Date:09/22/2022 02:00:00 PM Scheduled Provider: Location:[facility] Appointment Type:Urology CALL PAT FT Appointment Date:09/29/2022 11:15:00 AM Scheduled Provider: Location:[facility] Appointment Type:Urology FT Diagnostic Tests Pending * Urine Cytology ([facility]) 09/21/22 [facility] evaluation + Plan note Future Appointments Appointment Date:10/04/2023 10:15:00 AM Scheduled Provider:[facility]ARRINGTON [facility] Office Visit Diagnostic Tests Pending * UroVysion Fish and Urine Cyto ([facility]) [facility] Future App[facility]ments Appointment Date:10/04/2023 10:15:00 AM Scheduled Provider:Lionel CARRINGTON MD Location:[facility] Appointment Type:URO Office Visit General Surgery [place] Evaluation + Plan note Future Appointments Appointment Date:10/04/2023 10:15:00 AM Scheduled Provider:Lionel CARRINGTON MD Location:[facility] Appointment Type:URO Office Visit Diagnostic Tests Pending * Uro[facility] Fish and Urine Cyto ([facility]) [facility] information available [facility] Work Phone: Hisjhsx general Narrative - Reported* Type Description Date [...] KNEE SCOPE Surgical History L shoulder NAE -[facility] 2016 Hospitalization History FLU X2-3 DAYS Hospitalization History see surg. hx. [employer] Other Hospital course Narrative No data available for this section [facility] Hospital Discharge instructions No data available for this section [facility] progress note No data available for this section [facility] Chief Complaint and Reason for Visit [...] Diagnosis 1 Cervical spondylosis (M47.812) Referral Organization [facility] Referring Provider First Name Zoran Referring Provider Last Name Scott Referring Provider Specialty Neurologica l Surgery Referred Organization [facility] Referred Address [address], [place],[address] Referred Provider Specialty Physical The rapist Referral Priority Routine Reason evaluate and tr eat for neck and back pain Diagnosis 1 Cervical spondylosis (M47.812) Diagnosis 2 Low back pain, unspe cified (M54.50) Referral Organization [facility] Referring Provider First Name Zoran Referring Provider Last Name Scott Referring Provider Specialty Neurologica l Surgery Referred Organization [facility] Referred Provider Raoul Soriano Referred Address [address], [place],[address] Referred Provider Specialty Pain Medicin e Referral [...] and content) DATE CREATED AUTHOR 11/27/2022 [facility] DATE CREATED AUTHOR AUTHOR'S ORGANIZ ATION 01/02/2023 [facility] DATE CREATED AUTHOR AUTHOR'S ORGANIZ ATION 06/28/2023 [facility] DATE CREATED AUTHOR AUTHOR'S ORGANIZ ATION 07/29/2023 [facility] FOR RECORDS PERTAINING TO PATIENTS WHO ARE [...] BE BASED ON THE PRIMARY CLINICAL RECORDS. [employer] [facility]. provides no warranty or guarantee of the accuracy or completeness of information in this document.
== END 2023-08-05 10:55 | disposition home or self-care (01) ==
LOC: RAD 10:55
PROVIDERS: PCP Family Medicine; Visit Provider Family Medicine
DX: M75.81 Other shoulder lesions, right shoulder (principal)
CPT/HCPCS: 73030

== ENCOUNTER 2023-08-20 11:20 | Outpatient (OUT) | payer MEDICARE, SELFPAY ==
--- OUTSIDE RECORDS SUMMARY | 2023-08-20 11:24 | XMS_ITS | CCD ---
Author Name Unknown Address [facility] [id number] [place] [address] Organization [facility] Care Team Providers Care Chief Safety Officer Name Role Phone MD Yolande Staley Primary Care Provider [phone] MD Lionel Carrington Attending Provider Yolande Staley Primary Care Physician Leidy Plummer Unavailable Unavailable MD Yolande Staley Primary Care Provider [phone] MD Lionel Carrington Attending Provider Zoran Chavez Unavailable SHARON, DR VILLEGAS Admitting Unavailable ABBAS, DR VILLEGAS Attending Unavailable HOY ., DR LANIER Primary Care Unavailable ABBAS, DR VILLEGAS Consulting Unavailable HOY ., DR [...] Primary Care Unavailable JAMAICA GONZALEZ Consulting Unavailable SCOTT, DR MEEHAN Consulting Unavailable KRISS ., DR LANIER Consulting Unavailable HOReggie ., DR LANIER Admitting Unavailable HOY ., DR LANIER Primary Care Unavailable KRISS ., DR LANIER Attending Unavailable RENITA .DR FATEMEH Consulting Unavailable MAGGIE, DR SOCORRO Zapata Consulting Unavailable PARTHA HYATT Consulting Unavailable CHAVEZ, DR MEEHAN Attending Unavailable HOY ., DR LANIER Primary Care Unavailable CHAVEZ, DR MEEHAN Admitting Unavailable HOY ., DR [...] Unavailable HOY ., DR LANIER Attending Unavailable SOCORRO HUFFMAN Consulting Unavailable CARRINGTON ., DR FLOWERS Consulting [...] DR LANIER Consulting Unavailable HOY ., DR YOLANDE Delgado Unavailable HOY ., DR LANIER Primary Care Unavailable HOY ., DR LANIER Attending Unavailable ZIEBER, DR ALLI Burgos Consulting Unavailable CARRINGTON ., DR FLOWERS Consulting Unavailable CARRINGTON ., DR FLOWERS Admvidya Unavailable CARRINGTON ., DR FLOWERS Attending Unavailable HOY ., DR LANIER Primary Care Unavailable CARRINGTON ., DR FLOWERS Consulting Unavailable CARRINGTON ., DR FLOWERS Admitting Unavailable CARRINGTON ., DR FLOWERS Attending Unavailable KRISS ., DR LANIER Primary Care Unavailable MD Yolande Staley Primary Care Provider [phone] MD Zoran Chavez Attending Provider [phone] CARRINGTON, Lionel R Attending Unavailable CARRINGTON, Lionel R Admitting Unavailable CARRINGTON, Lionel R Referring Unavailable CARRINGTON, Lionel R Attending Unavailable NILL, Qamar R Attending Unavailable NILL, Qamar R Attending Unavailable CARRINGTON, Lionel R Attending [...] Unavailable CARRINGTON, Lionel R Referring Unavailable CARRINGTON, Linoel R Attending Unavailable CARRINGTON, Lionel R Admitting Unavailable CARRINGTON, Lionel R Referring Unavailable Gimarivelitis , Andrius Kilgore Attending Unavailable Giedraitis , Andrius Magui Attending Unavailable Giedraitis , Andrius Magui Attending Unavailable Giramírez NOBLE, Andrius Magui Attending Unavailable Syeda NOBLE, Duncanrius Magui Attending Unavailable MD Yolande Staley Primary Care Provider [phone] LIDA Lowery Attending Provider Esther Lowery Admitting Unavailable Esther Lowery Attending Unavailable Yolande Staley Primary Care Unavailable Zoran Chavez Attending Unavailable Yolande Staley Primary Care Unavailable Zoran Chavez Admitting Unavailable Allergies Allergy Classification Reported Allergen(s) Allergy Type Date of Onset Reaction(s) Facility (9 sources) Acetaminophen; 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: [acetaminophen] Drug Allergy 0 Itching, Itching agitated, Itching agitated, aggitation [facility] (20 sources) Codeine; 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: [Codeine] Drug Allergy 4 rash [facility] (9 sources) oxyCODONE; 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: [oxycodone] Drug Allergy 0 Itching, agitated, Itching, agitated, aggitation [facility] (16 sources) Acetaminophen / oxyCODONE; 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: [acetaminophen-oxyc odone] Drug Allergy aggitation [facility] James Comment on above: pt states this does not work for pt, pt is not allergic to vicodin (4 sources) cyclobenzaprine Drug Allergy 4 itching [facility] (4 sources) HYDROcodone Drug Allergy 4 anxiety [facility] (4 sources) tiZANidine Drug Allergy 4 hives [facility] (3 sources) Acetaminophen / HYDROcodone; 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: [Vicodin] Drug Allergy [facility] Rep[facility] (2 sources) Acetaminophen / oxyCODONE Drug Allergy [facility] (1 source) atorvastatin Drug Allergy [facility] (2 sources) tiZANidine Drug Allergy [facility] (1 source) Acetaminophen / oxyCODONE; 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: [Percocet 5/325] Drug Allergy [facility] Repository (1 source) cyclobenzaprine Drug Allergy 4 [facility] (1 source) HYDROcodone Drug Allergy 4 [facility] (1 source) tiZANidine Drug Allergy 4 [facility] Medications Current Medications Medication Drug Class(es) Dates Sig (Normalized) Sig (Original) acetaminophen 325 mg / HYDROcodone bitartrate 5 mg oral tablet (4 sources) Opioid Agonist Start: 08-12-2023 Hydrocodone-Acetam inophen Active 1 TAB PO August 12, 2023 12:00am Start: 02-03-2023 take 1 tablet by barry th every six hours as needed for pain acetaminophen-hydrocodone 325 mg-5 mg or al tablet 1 tab(s), Oral, q6hr as needed for pain, Refill(s) 0 Start Date: 02/03/23 Status: Ordered amLODIPine 10 mg oral tablet (14 sources) Dihydropyridine Calcium Channel Boogie Start: 08-12-2023 Amlodipine Active 10 MG PO August 12, 2023 12:00am Start: 02-10-2023 take 1 tablet by barry th once daily amLODIPine 5 mg Tab 5 mg = 1 tab(s), Oral, Daily, Refills(s) 0 Start Date: 02/10/23 Status: Ordered Start: 08-07-2019 End: 10-17-2021 take 10 mg by mouth at bedtime Amlodipine Discontinued 10 MG PO Bedtime August 07, 2019 12:00am October 17, 2021 11:30am carvedilol 25 mg oral tablet (20 sources) alpha-Adrenergic Boogie, beta-Adrenergic Boogie Start: 10-17-2021 take 25 mg by mouth twice daily Carvedilol Active 25 MG PO Twice daily October 16, 2021 11:00pm Start: 09-19-2021 take 2 tablets by mo [facility] twice daily carvedilol 6.25 mg Tab 12.5 mg = 2 tab(s), Oral, BID, Refills(s) 0 Start Date: 09/19/21 Status: Ordered Start: 09-19-2021 carvedilol 6.2 5 mg Tab Refills(s) 0 Start Date: 09/19/21 Status: Ordered take 1 tablet by barry every twelve hours Carvedilol 12.5 MG 1 tablet with food Orally Twice a day Active cloNIDine hydrochloride 0.1 mg oral tablet (18 sources) Central alpha-2 Adrenergic Agonist Start: 02-17-2022 take 0.1 mg by mouth twice daily Clonidine Hcl Active 0.1 MG PO Twice daily February 16, 2022 11:00pm Start: 02-17-2022 take 0.1 mg by mouth [...] sodium 75 mg delayed release oral tablet (20 sources) Nonsteroidal Anti-inflammatory Drug Start: 10-17-2021 take 75 mg by mouth twice daily Diclofenac Sodium Active 75 MG PO Twice daily October 16, 2021 11:00pm Start: 08-07-2019 End: 04-19-2020 take 75 mg by mouth twice daily Diclofenac Sodium Discontinued 75 MG PO Twice daily August 07, 2019 12:00am April 19, 2020 7:04am Rkunlbnnpth-Nwptbvyzn-Qdlamo er (8 sources) Anticholinergic, Corticosteroid, beta2-Adrenergic Agonist Start: 08-07-2019 Cgnrvijtsup-Ojxxryqox-Yrzylc er (Trelegy Ellipta) 100-62.5-25 mcg Blister With Device Active 1 INH INHALATION Daily August 07, 2019 3:01pm Start: 08-07-2019 Fluticasone-Um eclidin-Vilanter (Trelegy Ellipta) 100-62.5-25 mcg Blister With Device Active 1 INH INHALATION Daily August 07, 2019 12:00am Start: 08-07-2019 Fluticasone-Um eclidin-Vilanter (Trelegy Ellipta) 100-62.5-25 mcg Blister With Device Active 1 INH INHALATION Daily August 07, 2019 1:00am lidocaine 0.05 mg/mg medicated patch (2 sources) Antiarrhythmic, Amide Local Anesthetic Start: 08-12-2023 apply 1 dose topically once daily Lidocaine Active 1 PATCH TOPICAL Daily August 12, 2023 12:00am leave on most painful area for up to 12 hrs Multivitamin preparation (8 sources) Start: 10-17-2021 take 1 tablet by mouth once daily Multivitamin Active 1 TAB PO Daily October 17, 2021 12:31pm Start: 10-17-2021 take 1 tablet by barry th once daily Multivitamin Active 1 TAB PO Daily October 16, 2021 11:00pm Start: 10-17-2021 take 1 tablet by barry [...] (20 sources) Proton Pump Inhibitor Start: 08-23-19 take 40 mg by mouth once daily Omeprazole Active 40 MG PO Daily August 07, 2019 12:00am omeprazole 40 mg Cap-EC (2 sources) Start: 08-23-19 take 1 capsule by mouth once daily omeprazole 40 mg Cap-EC 40 mg = 1 cap(s), Oral, Daily, Refills(s) 0, Control of stomach acid Start Date: 08/22/14 Status: Ordered pantoprazole 40 mg delayed release oral tablet (6 sources) Proton Pump Inhibitor Start: 08-12-19 Pantoprazole Active MG PO August 12, 2023 12:00am Start: 02-03-2023 take 1 tablet by barry th once daily Pantoprazole [address] Tab 40 mg = 1 tab(s), Oral, Daily, Refills(s) 0 Start Date: 02/03/23 Status: Ordered take 1 tablet by barry th every twenty-four hours Pantoprazole Sodium 40 MG 1 tablet Orally Once a day Active TENS Unit (2 [...] Sig (Original) allopurinol 300 mg oral tablet (10 sources) Xanthine Oxidase Inhibitor Start: 08-07-2019 End: 04-11-2020 take 300 mg by mouth once daily Allopurinol Discontinued 300 MG PO Daily August 07, 2019 12:00am April 11, 2020 12:50pm cephalexin 500 mg oral capsule (6 sources) Cephalosporin Antibacterial Start: 02-17-2022 End: 08-12-2023 take 500 mg by mouth every twelve hours Cephalexin Discontinued 500 MG PO Q12H 14 February 16, 2022 11:00pm August 12, 2023 11:08am Start: 02-17-2022 take 500 mg by mouth every twelve hours Cephalexin Active 500 MG PO Q12H 14 February 17, 2022 12:00am Start: 02-17-2022 take 500 mg by mouth every twelve hours Cephalexin Active 500 MG PO Q12H 14 February 17, 2022 12:00am ciprofloxacin 500 mg oral tablet (10 sources) Quinolone Antimicrobial Start: 01-20-2023 take 1 tablet by mouth once daily Cipro 500 mg Tab 500 mg = 1 tab(s), Oral, Daily, take one tab day before procedure and one tab after procedure, # 2 tab(s), Refills(s) 0, Pharmacy: [facility]/pharmacy #[id number], 170, cm, 01/20/23 10:45:00 EDT, Height/Length Dosing, 83.5, kg, 01/20/23 10:45:00 EDT, Weight Dosing Start Date: 01/20/23 Status: Ordered Start: 12-31-2022 take 1 tablet by barry th once daily Cipro 500 mg Tab 500 mg = 1 tab(s), Oral, Daily, Take 1 tablet the day before the procedure and 1 tablet after the procedure, # 6 tab(s), Refills(s) 0, Pharmacy: [facility]/pharmacy #[id number], 170, cm, 09/22/22 12:23:00 EDT, Height/Length Dosing, 78, kg, 02/24/22 10:53:00 EDT, W... Start Date: 12/31/22 Status: Ordered Start: 07-02-2022 take 1 tablet by barry th once daily Cipro 500 mg Tab 500 mg = 1 tab(s), Oral, Daily, Take 1 tablet the day before the procedure and 1 tablet after the procedure, # 6 tab(s), Refills(s) 0, Pharmacy: [facility]/pharmacy #[id number], 170, cm, 02/24/22 10:53:00 EDT, Height/Length Dosing, 78, kg, 02/24/22 10:53:00 EDT, W... Start Date: 07/02/22 Status: Ordered Start: 11-05-2021 take 1 tablet by barry th once daily Cipro 500 mg Tab 500 mg = 1 tab(s), Oral, Daily, Take 1 tab at nighttime prior to the day of procedure, then 1 tab right after the procedure, # 2 tab(s), Refills(s) 0, Pharmacy: [facility]/pharmacy #[id number], 170, cm, 11/05/21 11:37:00 EDT, Height/Length Dosing, 78, kg, 11/05/21... Start Date: 11/05/21 Status: Ordered diazePAM 5 mg oral tablet (8 sources) Benzodiazepine Start: 04-19-2020 End: 10-17-2021 take 5 mg by mouth four times daily Diazepam Discontinued 5 MG PO Four times daily 40 10 April 18, 2020 11:00pm October 17, 2021 11:30am doxycycline hyclate 100 mg oral capsule (1 source) Tetracycline-class Drug Start: 04-12-2023 take 1 capsule by mouth twice daily doxycycline hyclate 100 mg Cap 100 mg = 1 cap(s), Oral, BID, Take 1 capsule the day before the procedure and 1 capsule after the procedure, # 2 cap(s), Refills(s) 0, [id number], cm, 02/10/23 14:22:00 EDT, Height/Length Dosing, 82.9, kg, 02/10/23 14:22:00 EDT, Weight Dosing Start Date: 04/12/23 Status: Ordered irbesartan 300 mg oral tablet (20 sources) Angiotensin 2 Receptor Boogie Start: 10-17-2021 End: 02-06-2022 take 300 mg by mouth once daily at bedtime Irbesartan Discontinued 300 MG PO Daily at bedtime October 16, 2021 11:00pm February 06, 2022 1:19pm lisinopril 40 mg oral tablet (11 sources) Angiotensin Converting Enzyme Inhibitor Start: 06-22-2017 End: 10-17-2021 take 40 mg by mouth at bedtime Lisinopril Discontinued 40 MG PO Bedtime August 07, 2019 12:00am Cydney 29th, 2022 11:24am losartan potassium 100 mg oral tablet (6 sources) Angiotensin 2 Receptor Boogie Start: 02-06-2022 End: 02-17-2022 take 100 mg by mouth once daily at bedtime Losartan Discontinued 100 MG PO Daily at bedtime February 05, 2022 11:00pm February 17, 2022 9:48am oxyCODONE hydrochloride 5 mg oral tablet (8 sources) Opioid Agonist Start: 04-19-2020 End: 10-17-2021 take 5 mg by mouth every four to six hours Oxycodone Discontinued 5 MG PO EVERY 4-6 HOURS 70 14 April 19, 2020 October 17, 2021 11:31am sildenafil 100 mg oral tablet (16 sources) Phosphodiesterase 5 Inhibitor Start: 07-05-2022 take 1 tablet by mouth every twenty-four hours sildenafil 100 mg Tab 100 mg = 1 tab(s), Oral, Daily, Take 1 tablet 1 hr prior to sexual activity as needed. Don't exceed 1 tab (100 mg) in a 24 hr period., # 30 tab(s), Refills(s) 3, Pharmacy: [id number], 170, cm, 02/24/22 10:53:00 EDT, Height/Length Dosing, 78, kg, 02/24/22 10:53:00 EDT, Weight Dosing Start Date: 07/05/22 Status: Ordered Start: 09-19-2021 sildenafil 100 mg Tab 100 mg = 1 tab(s), Oral, Daily, Take 1 pill 30 minutes prior to sexual relations, # 30 tab(s), Refills(s) 3, Pharmacy: [id number], 170, cm, 09/19/21 10:16:00 [...] a surgery d one radical prostectomy at [facility] of prostate (20 sources) Personal history [...] site] Onset: 2 Chronic Other acquired deformities (14 sources) Spondylolisthesis; 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: [Spondylolisthesis, cervical region] 04-19-2020 Episodic Other acquired deformities (2 sources) Acquired spondylolisthesis; 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: [Spondylolisthesis, cervical region] Episodic Other aftercare (1 source) Other nursing home (current) drug therapy; 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: [OTH [facility] CURRENT DRUG THERAPY] Onset: 3 Episodic Other [...] Spondylosis; intervertebral disc disorders; other back problems (16 sources) Chronic low back pain; 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: [Low back pain, unspecified] Onset: 4 08-12-2023 Episodic Unclassified (3 sources) LOW BACK PAIN, UNSPECIFIED; 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: [LOW BACK PAIN, UNSPECIFIED] Onset: 3 Unclassified (2 sources) COUGH, UNSPECIFIED; 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: [COUGH, UNSPECIFIED] Onset: 3 Unclassified (1 source) CONTACT W/AND (SUSP) EXPOS COVID-19; 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: [CONTACT W/AND (SUSP) EXPOS COVID-19] Onset: 3 Unclassified (2 sources) Body mass index 20-24 - normal 02-10-2023 Unclassified (1 source) Low back pain, unspecified; 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: [Low back pain, unspecified] Onset: 3 Past or Other Problems Problem Classification Problem [...] Name Value Interpretation Reference Range Facil ity XR cervical spine LAT/FLX/EX Ton 08-12-2023 XR cervical spine LAT/FLX/EXT [facility] Main [place] [address] [place] [address] XRay Report Signed Patient: Mary Diaz MR#: [id number] : 1950 Acct:[id number] Age/Sex: 73 / M ADM Date: 08/12/23 Loc: XD Room: Type: [facility] Attending Dr: Esther HILTON Copies to: LIDA Flynn Ordering Provider: LIDA Flynn Date of Service: 08/12/23 XR/XR cervical spine LAT/FLX/EXT: M48.061 - Spinal stenosis, lumbar region without neurogen... AP with lateral neutral, flexion extension views of thecervical spine HISTORY: Chronic neck pain COMPARISON: 12 07/17/2020 POSTOPERATIVE CHANGES: Stable C7-T1 posterior fusion. BONY ALIGNMENT: Stable HYPERMOBILITY::No hypermobility LISTHESIS:Similar mild degenerative listhesis FRACTURE: None DISC DEGENERATION: Similar extensive multilevel spondylosis and facet degeneration. FACETS: Unremarkable FORAMEN: Not assessed DENS: Intact CRANIOCERVICAL JUNCTION: Unremarkable SOFT TISSUES: Unremarkable XR/XR cervical spine LAT/FLX/EXT IMPRESSION: No hypermobility. Stable similar extensive degeneration. No hardware failure. Impression dictated by: Kenny Leahy M.D.08/12/2023 3:29 PM Dictation Location: [place] [address] Transcribed By: [facility] 08/12/23 [id number] Dictated By: Kenny Leahy DO 08/12/23 1528 Signed By: 08/12/23 1529 [facility] XR lumbar spine 6V w bending on 08-12-2023 XR lumbar spine 6V w bending [facility] Main [place] [id number] XRay Report Signed Patient: Mary Diaz MR#: [id number] : 1950 Acct:[id number] Age/Sex: 73 / M ADM Date: 08/12/23 Loc: XD Room: Type: [facility] Attending Dr: Esther BASILIOC Copies to: LIDA Flynn Ordering Provider: LIDA Flynn Date of Service: 08/12/23 XR/XR lumbar spine 6V w bending: M48.02 - Spinal stenosis, cervical region 6 views Lumbar Spinewith bending HISTORY: Bilateral leg pain with numbness and tingling. Chronic neck pain. COMPARISON: 10/23/2022 POSTSURGICAL CHANGES: None BONY ALIGNMENT: Stable HYPERMOBILITY:No hypermobility LISTHESIS:Minor degenerative listhesis FRACTURE: None DEGENERATIVE CHANGES: Extensive L4 S1 degenerative change. SOFT TISSUES: Atherosclerosis. BONY MINERALIZATION:Adequ ate XR/XR lumbar spine 6V w bending IMPRESSION: No hypermobility. Extensive lower lumbar degenerative changes redemonstrated. Impression dictated by: Kenny Leahy M.D.08/12/2023 3:28 PM Dictation Location: [place] [address] Transcribed By: [facility] 08/12/23 1528 Dictated By: Kenny Leahy DO 08/12/23 1526 Signed By: 08/12/23 1528 [facility] Reminderson 06-28-2023 Reminders - From: Loretta Simosn To: WESLEY Leandro Carrington; Cc: Loretta Simons; Sent: 06/28/2023 10:52:09 [...] Correction Notes - Performed By: #### 1 [id number] #### [facility] [address] [place] [address] Consent for Procedure/Surger yon 04-27-2023 Consent for Procedure/Surgery [id number] #1.00TIFF Normal [facility] Consent for Treatmenton Consent for Treatment [id number] #1.00TIFF Normal [facility] IntraOperative Documentson 1 06-27-2022 IntraOperative Documents [id number] #1.00TIFF [facility] Main OR Intraoperative Recor don 04-27-2023 Main OR Intraoperative Record IntraOp Document Type FTURO Summary Primary Physician: Lionel CARRINGTON MD Finalized Date/Time: 04/27/23 11:02:57 Pt. Name: MARY DIAZ/Sex: 1950 Male Med Rec #: [id number] Physician: Lionel CARRINGTON MD Financial #: [id number] Pt. Type: O Room/Bed: / Admit/Disch: 04/27/23 10:06:44 - Institution: Case Times FTURO Entry 1 Patient Times In Room 04/27/23 10:52:00 Out Room 04/27/23 11:05:00 Procedure Times Start 04/27/23 10:56:00 Stop 04/27/23 11:00:00 Anesthesia Times Last Modified By: Edgard RNPAULINA Ruthann 04/27/23 11:00:10 Case Attendance FTURO Entry 1 Entry 2 Entry 3 Case Attendee DEVONTE NOBLE, Lionel Rene RN, CNOR, Safia GROSS, Nanci Luna Role Performed Surgeon - Primary Professor Of Latin American Studies - Primary Scrub - Primary Time In [...] Description CYSTO Primary Procedure Yes Primary Surgeon DEVONTE NOBLE, Lionel Burgos Start 04/27/23 10:56:00 Stop 04/27/23 11:00:00 Anesthesia Type Local Surgical Service Urology Wound Class 2 - Clean-Contaminated Last Modified By: Edgard ZELAYA, Cheryl GALLARDO 04/27/23 11:01:00 General Case Data FTURO Pre-Care Text: Classifies surgical wound, implements aseptic technique, initiates traffic control Entry 1 Case Information OR URO 1 FT Case Level None Wound Class 2 - Clean-Contaminated Specialty Urology Preop Diagnosis HISTORY OF BLADDER Postop Same As Preop No CANCER Postop Diagnosis clear bladder Outcomes Met? Yes Last Modified By: Edgard ZELAYA, PAULINA, Cheryl 04/27/23 10:55:56 Post-Care Text: The patient [...] MARY DIAZ/Sex: 1950 Male Med Rec #: [id number] Physician: Lionel CARRINGTON MD Financial #: [id number] Pt. Type: O Room/Bed: / Admit/Disch: 04/27/23 [...] Complaints of Pain: No Skin Integrity Intact, [place], Warm, & Dry Vitals - EU Blood [...] Type: Local. Procedure: Local Cystoscopy. Complications: None. Risks/Benefits/Infor med Consent: Surgical risks, benefits, details of the [...] DEVONTE NOBLE, Lionel Gama.tacos\Date and Time Signed: 04/27/23 11:04 EST Outpatient Surgery Discharge Instructionon 04-27-2023 Outpatient Surgery Discharge Instruction [id number] #1.00TIFF [facility] Reminderson 04-27-2023 Reminders - From: Loretta [...] Comment on above: Performed By: #### 1 [id number] #### [facility] [address] [place] [address] [facility] Number of Jars 1 Invalid Interpretation Code [facility] Comment on above: Performed By: #### 1 [id number] #### [facility] [address] [place] [address] [facility] Specimen Urine Normal [facility] Comment on above: Performed By: #### 1 [id number] #### [facility] [address] [place] [address] [facility] Type of Service Technical Only [facility] Comment on above: Performed By: #### 1 [id number] #### [facility] [address] [place] [address] Outside Colonoscopyon 2022 Outside Colonoscopy [id number] #1.00CD:127 Normal [facility] Reminderson 03-16-2023 Reminders - From: Stephanie Fletcher LPN To: N - Clinical; Sent: 03/16/2023 07:57:36 EDT Show up: 02/08/2028 07:00:00 EDT Subject: colonoscopy recall Due Date/Time: 03/10/2028 07:00:00 EDT Reminder/Recall Patient due for surveillance colonoscopy 03/10/2028 due to history of colonic polyps. Normal [facility] Reminderson 03-05-2023 Reminders - From: Loretta [...] be due in August 2023.LG new thread Normal [facility] Consent for Procedure/Surger yon 02-11-2023 Consent for Procedure/Surgery [id number]# 1.00CD:127 [facility] Ambulatory Visit Summaryon 0 02-10-2023 Ambulatory Visit Summary MARY DIAZ :1950 Visit Date:02/10/2023 Ambulatory Visit Instructions Your Care Team Attending Physician - Qamar SMITH MD Primary Care Physician - Yolande Staley MD This Is Your Medications List Contact prescribing physician if questions or concerns acetaminophen-hydroc odone (acetaminophen-hydro codone 325 mg-5 mg oral tablet) amlodipine (amLODIPine 5 mg Tab) ciprofloxacin (Cipro 500 mg Tab) colchicine (Colcrys 0.6 mg oral tablet) diclofenac (diclofenac sodium 75 mg Oral EC Tab) fluticasone/umeclidi nium/vilanterol (Trelegy Ellipta 100 mcg-62.5 mcg-25 mcg inhalation [...] Follow-Up Appointments Wednesday 10:15 AM EDT With: Lionel CARRINGTON MD Where: [facility] Lab Reportson 02-03-2023 Lab Reports [id number] #1.00CD:127 Normal [facility] Physician Referralon 023 Physician Referral [id number] #1.00CD:127 Normal [facility] UroVysion Fish and Urine Cyt o ([facility])on 02-03-2023 [facility] Revision Information Invalid Interpretation Code [facility] Comment on above: Result Comment: Jimbo ection Reason -[ To Nur, 02/03/23 - 12:32 ] Corrected report issued to update PMS/PWS. The diagnosis remains unchanged. Correction Notes - Performed By: #### 1 [id number] #### [facility] [address] [place] [address] Lab Reportson 01-29-2023 Lab Reports [id number] #1.00CD:127 Normal [facility] Operative Reporton 3 Operative Report [id number] #1.00CD:127 Normal [facility] Ambulatory Visit Summaryon [...] NOBLE, Qamar Burgos Where: General Surgery Luis/Greg Rufus Normal [address] [place] [address]- \.br\ You Need to Schedule the Following Appointments\.br \ Follow Up with DEVONTE NOBLE, Lionel Burgos, URL When: \.br\ Comments:\.br\ sched cysto\.br\ Where:\.br\ [facility] [address]\.br\ [place] [address]-\.br\ [phone]\.br\ Medications\.br\ What How Much When Instructions\.br \ New ciprofloxacin (Cipro 500 mg Tab) 1 Tablets By Mouth Every day take one tab day before procedure and one tab after procedure Pickup at [facility]/pharmacy #[id number]\.br\ Unchanged sildenafil (sildenafil 100 mg Tab) 1 [...] physician if questions or concerns \.br\ Pharmacy Information\.br\ [facility]/pharmacy #[id number]: [address], [place] [id number] [phone]\.br\ Allergies\.br\ Percocet 5/325\.br\ codeine (hives/rashes)\. br\ Problems\.br\ Ongoing - Any problem that you are currently receiving treatment for.\.br\ Acute gouty arthritis\.br\ Bladder cancer\.br\ History of kidney stones\.br\ History of prostate cancer\.br\ HTN (hypertension)\. br\ Impotence\.br\ Historical - Any problem that you [...] Being male.\.br\ ? \.br\ Having long-term bladder inflammation.\.b r\ ? \.br\ Having a history of cancer. This includes:\.br\ ? \.br\ A family history of bladder cancer.\.br\ ? \.br\ Having had bladder cancer before.\.br\ ? \.br\ Having had certain treatments for cancer before, such as:\.br\ ? \.br\ Medicines to kill cancer cells (chemotherapy).\ .br\ ? \.br\ Strong X-ray beams or high-energy [...] the inside wall of the bladder (transurethral resection).\.br\ ? \.br\ Removing the bladder (cystectomy).\.b r\ ? \.br\ Radiation therapy. This is often combined with chemotherapy.\.b r\ ? \.br\ Chemotherapy.\.b r\ ? \.br\ Immunotherapy. This uses medicines to help your body's disease-fighting system (immune system) destroy cancer cells.\.br\ Follow these instructions at home:\.br\ ? \.br\ Take gnrg-pxt-jpotfkp and prescription medicines only as told by [...] This is important.\.br\ Where to find more information\.br\ ? \.br\ [employer] (ACS): cancer.org\.br\ ? \.br\ National Cancer [place] (NCI): cancer.gov\.br\ Contact a health care provider [...] With: Qamar SMITH MD Where: General Surgery [facility] [place] [facility] [address] [place] [address]- \.br\ You Need to Schedule the Following Appointments\.br \ Follow Up with DEVONTE NOBLE, Lionel Burgos, URL When: \.br\ Comments:\.br\ sched cysto\.br\ Where:\.br\ [facility] [address]\ [place] [address].br\ [phone]\.br\ Medications\.br\ What How Much When Instructions\.br \ Unchanged carvedilol (carvedilol 6.25 mg Tab) 2 [...] or concerns \.br\ Allergies\.br\ Percocet 5/325\.br\ codeine (hives/rashes)\. br\ Problems\.br\ Ongoing - Any problem that you are currently receiving treatment for.\.br\ Acute gouty arthritis\.br\ Bladder cancer\.br\ History of kidney stones\.br\ History of prostate cancer\.br\ HTN (hypertension)\. br\ Impotence\.br\ Historical - Any problem that you [...] Being male.\.br\ ? \.br\ Having long-term bladder inflammation.\.b r\ ? \.br\ Having a history of cancer. This includes:\.br\ ? \.br\ A family history of bladder cancer.\.br\ ? \.br\ Having had bladder cancer before.\.br\ ? \.br\ Having had certain treatments for cancer before, such as:\.br\ ? \.br\ Medicines to kill cancer cells (chemotherapy).\ .br\ ? \.br\ Strong X-ray beams or high-energy [...] the inside wall of the bladder (transurethral resection).\.br\ ? \.br\ Removing the bladder (cystectomy).\.b r\ ? \.br\ Radiation therapy. This is often combined with chemotherapy.\.b r\ ? \.br\ Chemotherapy.\.b r\ ? \.br\ Immunotherapy. This uses medicines to help your body's disease-fighting system (immune system) destroy cancer cells.\.br\ Follow these instructions at home:\.br\ ? \.br\ Take dyuw-vyj-mpronss and prescription medicines only as told by [...] This is important.\.br\ Where to find more information\.br\ ? \.br\ [employer] (ACS): cancer.org\.br\ ? \.br\ National Cancer [place] (NCI): cancer.gov\.br\ Contact a health care provider [facility] Pathology Note [id number] #1.00CD:127 Normal [facility] Patient Educationon 01-21-20 [...] Follow these instructions at home: ? Take aykf-ykh-zjyxhiv and prescription medicines only as told by [...] important. Where to find more information ? [place] [employer] (ACS): cancer.org ? National Cancer [place] (NCI): cancer.gov Contact a health care provider [...] have wi (more content not included)... Normal [facility] Urology Office/Clinic Noteon 01-20-2023 Urology Office/Clinic [...] therapy. Follow-up With When Contact Information DEVONTE NOLBE, Lionel Burgos, URL [facility] [address], [place] [phone] Additional Instructions: sched cysto Patient Education Bladder [...] of th (more content not included)... Normal [facility] Comment on above: Result Comment: Elec tronically Signed By: Lionel CARRINGTON MD\.br\Date and Time Signed: 01/20/23 11:40 EDT\.br\Electronically Co-Signed By: Lilo Zhou\.br\Date and Time Co-Signed: 01/20/23 11:37 EDT Lab Reportson 01-11-2023 Lab Reports [id number] #1.00CD:127 [facility] Consent for Procedure/Surger yon 01-05-2023 Consent for Procedure/Surgery [id number] 2#1.00CD:127 [facility] Consent for Treatmenton 12-19 Consent for Treatment [id number] #1.00CD:127 [facility] IntraOperative Documentson 0 01-05-2023 IntraOperative Documents [id number]#1.00CD:127 [facility] Main OR Intraoperative Recor don 01-05-2023 Main OR Intraoperative Record IntraOp Document Type FTURO Summary Primary Physician: Lionel CARRINGTON MD Finalized Date/Time: 01/05/23 10:57:53 Pt. Name: MARY DIAZ/Sex: 1950 Male Med Rec #: [id number] Physician: Lionel CARRINGTON MD Financial #: [id number] Pt. Type: O Room/Bed: / Admit/Disch: 01/05/23 [...] Zora Luna Role Performed Surgeon - Primary Professor Of Latin American Studies - Primary Scrub - Primary Time In 01/05/23 10:38:00 01/05/23 10:38:00 01/05/23 10:38:00 Time Out 01/05/23 10:54:00 01/05/23 10:54:00 01/05/23 10:54:00 Procedure CYSTOSCOPY LOCAL(.) CYSTOSCOPY LOCAL(.) CYSTOSCOPY LOCAL(.) Comments Last Modified By: Edgard ZELAYA, CNOR, Edgard ZELAYA, EDITHOR, Edgard ZELAYA, EDITHOR, Cheryl 01/05/23 Cheryl 01/05/23 Cheryl 01/05/23 10:51:02 10:51:02 10:51:02 Surgical Procedures FTURO Entry 1 Procedure Description Procedure CYSTOSCOPY LOCAL Modifiers . Surgeon Description CYSTO Primary Procedure Yes Primary Surgeon Lionel CARRINGTON MD Start 01/05/23 10:41:00 Stop 01/05/23 10:50:00 Anesthesia Type Local Surgical Service Urology Wound Class 2 - Clean-Contaminated Last Modified By: Edgard ZELAYA, EDITHOR, Cheryl 01/05/23 10:51:04 General Case Data FTURO Pre-Care Text: Classifies surgical wound, implements aseptic technique, initiates traffic control Entry 1 Case Information OR URO 1 FT Case Level None Wound Class 2 - Clean-Contaminated Specialty Urology Preop Diagnosis HISTORY OF BLADDER Postop Same As Preop No CANCER Postop Diagnosis HISTORY OF BLADDER Outcomes Met? Yes CANCER, clear bladder Last Modified By: Edgard ZELAYA, EDITHOR, Cheryl 01/05/23 10:40:14 Post-Care Text: The patient [...] CARRINGTON MD, Verified (If Participants Edgard ZELAYA, CNOR, Applicable) Eulalia Luna CST, Julie A Time [...] MARY DIAZ/Sex: 1950 Male Med Rec #: [id number] Physician: Lionel CARRINGTON MD Financial #: [id number] Pt. Type: O Room/Bed: / Admit/Disch: 01/05/23 [...] TO BILATERAL ARMS NATHALIE WELLS Finalized By: PAULINA Rene RN, Ruthann Document Signatures Signed By: Nanci Cortes RN [...] Type: Local. Procedure: Local Cystoscopy. Complications: None. Risks/Benefits/Infor med Consent: Surgical risks, benefits, details of the [...] Comment on above: Performed By: #### 1 [id number] #### [facility] [address] [place] [address] [facility] Number of Jars 1 Invalid Interpretation Code [facility] Comment on above: Performed By: #### 1 [id number] #### [facility] [address] [place] [address] [facility] Specimen Urine Normal [facility] Comment on above: Performed By: #### 1 [id number] #### [facility] [address] [place] [address] [facility] Type of Service Technical Only Normal [facility] Comment on above: Performed By: #### 1 [id number] #### [facility] [address] [place] [address] MR lumbar spine wo [facility] MR lumbar spine wo [facility] Main [address] [address] MRI Report Signed Patient: Mary Diaz MR#: [id number] : 1950 Acct:[id number] Age/Sex: 72 / M ADM Date: 01/01/23 Loc: MR Room: Type: [facility] Attending Dr: Zoran Chavez MD Copies to: Zoran Chavez MD Ordering Provider: Zoran Cahvez MD Date of Service: 01/01/23 MR/MR lumbar [...] [place] Alas M.D.01/01/2023 2:48 PM Dictation Location: [id number] Transcribed By: [facility] 01/01/23 144 Dictated By: Jamaica Alas II, MD 01/01/231440 Signed By: 01/01/23 144 [facility] - Clinical Noteon Retail - Clinical Note [id number] #1.00CD:127 Normal [facility] XR CSPINE MIN 4 VIEWSon XR CSPINE MIN 4 VIEWS EXAMINATION: XR CSPINE MIN 4 VIEWS HISTORY: Cervical spondylosis without [...] by: ALLI CORTES Date: 2022-10-23 11:53 Normal [facility] XR LSPINE W_OBLS AND FLEX_EX Ton [...] Date: 2022-10-23 13:18 Normal [facility] BNPon 10-06-2022 Natriuretic peptide B (Bld) [Mass/Vol] 844.0 pg/mL Normal <=900.0 [facility] Comment on above: Performed By: #### C VDTB #### [facility] [address] [place] [address] Dr. Johnna Dixon CBC AUTO DIFFon 10-06-2022 BASO # 0.0 103/ul Normal 0.0-0.1 [facility] Comment on above: Performed By: #### C BC #### [facility] [address] [place] [address] Dr. Johnna Dixon Basophils/100 WBC (Bld) 0.0 % Critically low 0.2-2.0 [facility] Comment on above: Performed By: #### C BC #### [facility] [address] [place] [address] Dr. Johnna Dixon EO # 0.0 103/ul Normal 0.0-0.7 [facility] Comment on above: Performed By: #### C BC #### [facility] [address] [place] [address] Dr. Johnna Dixon Eosinophils/100 WBC (Bld) 0.0 % Critically low 0.9-7.0 [facility] Comment on above: Performed By: #### C BC #### [facility] [address] [place] [address] Dr. Johnna Dixon Erythrocyte distribution width (RBC) [Ratio] 13.9 % Normal 11.0-15.0 [facility] Comment on above: Performed By: #### C BC #### [facility] [address] [place] [address] Dr. Johnna Dixon Hematocrit (Bld) [Volume fraction] 33.6 % Critically low 42.0-54.0 [facility] Comment on above: Performed By: #### C BC #### [facility] [address] [address] [address] Johnna Dixon Hemoglobin (Bld) [Mass/Vol] 11.1 g/dL Critically low 14.0-18.0 [facility] Comment on above: Performed By: #### C BC #### [facility] [address] [address] [address] Johnna Dixon IG # 0.03 10e3/ul Normal 0.00-0.03 [facility] Comment on above: Performed By: #### C BC #### [facility] [address] [place] [address] Dr. Johnna Dixon IG % 0.5 % Normal 0.0-0.5 [facility] Comment on above: Performed By: #### C BC #### [facility] [address] [place] [address] Dr. Johnna Dixon LYMPH # 0.7 103/ul Critically low 1.2-3.8 [facility] Comment on above: Performed By: #### C BC #### [facility] [address] [place] [address] Dr. Johnna Dixon Lymphocytes/100 WBC (Bld) 11.5 % Critically low 20.5-60.0 [facility] Comment on above: Performed By: #### C BC #### [facility] [address] [place] [address] Dr. Johnna Dixon MANUAL DIFF REQ NO Normal [facility] Comment on above: Performed By: #### C BC #### [facility] [address] [place] [address] Dr. Johnna Dixon MCH (RBC) [Entitic mass] 31.0 pg Normal 25.9-34.0 [facility] Comment on above: Performed By: #### C BC #### [facility] [address] [place] [address] Dr. Johnna Dixon MCHC (RBC) [Mass/Vol] 33.0 g/dL Normal 29.9-35.2 [facility] Comment on above: Performed By: #### C BC #### [facility] [address] [address] [address] Johnna Dixon MCV (RBC) [Entitic vol] 93.9 fL Normal 80.0-94.0 [facility] Comment on above: Performed By: #### C BC #### [facility] [address] [address] [address] Johnna Dixon MONO # 0.3 103/ul Normal 0.3-0.8 [facility] Comment on above: Performed By: #### C BC #### [facility] [address] [address] [address] Johnna Dixon Monocytes/100 WBC (Bld) 4.5 % Normal 1.7-12.0 [facility] Comment on above: Performed By: #### C BC #### [facility] [address] [place] [address] Dr. Johnna Dixon NEUT # 5.0 103/ul Normal 1.4-6.5 [facility] Comment on above: Performed By: #### C BC #### [facility] [address] [place] [address] Dr. Johnna Dixon Neutrophils/100 WBC (Bld) 83.5 % Critically high 43.0-75.0 [facility] Comment on above: Performed By: #### C BC #### [facility] [address] [place] [address] Dr. Johnna Dixon Platelet mean volume (Bld) [Entitic vol] 10.3 fL Normal 9.5-13.5 [facility] Comment on above: Performed By: #### C BC #### [facility] [address] [place] [address] Dr. Johnna Dixon PLT 184 103/ul Normal 150-450 [facility] Comment on above: Performed By: #### C BC #### [facility] [address] [place] [address] Dr. Johnna Dixon RBC 3.58 106/ul Critically low 4.70-6.10 [facility] Comment on above: Performed By: #### C BC #### [facility] [address] [place] [address] Dr. Johnna Dixon WBC 6.0 103/ul Normal 4.0-11.0 [facility] Comment on above: Performed By: #### C #### [facility] [address] [place] [address] Dr. Johnna Dixon PROF 14(COMP METB)on 023 Albumin [Mass/Vol] 2.7 g/dL Critically low 3.4-5.0 [facility] Comment on above: Performed By: #### C VDTBH #### [facility] [address] [place] [address] Dr. Johnna Dixon Albumin/Globulin [Mass ratio] 0.9 {ratio} Normal [facility] Comment on above: Performed By: #### C VDTBH #### [facility] [address] [place] [address] Dr. Johnan Dixon ALP [Catalytic activity/Vol] 32 U/L Critically low 46-116 [facility] Comment on above: Performed By: #### C VDTBH #### [facility] [address] [place] [address] Dr. Johnna Dixon ALT [Catalytic activity/Vol] 19 U/L Normal 16-63 [facility] Comment on above: Performed By: #### C VDTBH #### [facility] [address] [place] [address] Dr. Johnna Dixon Anion gap [Moles/Vol] 14.0 mmol/L Normal [facility] Comment on above: Performed By: #### C VDTBH #### [facility] [address] [place] [address] Dr. Johnna Dixon AST [Catalytic activity/Vol] 12 U/L Critically low 15-37 [facility] Comment on above: Performed By: #### C VDTBH #### [facility] [address] [place] [address] Dr. Johnna Dixon Bilirubin [Mass/Vol] 0.6 mg/dL Normal 0.2-1.0 [facility] Comment on above: Performed By: #### C VDTBH #### [facility] [address] [address] [address] Johnna Dixon Calcium [Mass/Vol] 8.3 mg/dL Critically low 8.5-10.1 Th [facility] Comment on above: Performed By: #### C VDTBH #### [facility] [address] [address] [address] Johnna Dixon Chloride [Moles/Vol] 107 mmol/L Normal 98-107 [facility] Comment on above: Performed By: #### C VDTBH #### [facility] [address] [address] [address] Johnna Dixon CO2 [Moles/Vol] 24.9 mmol/L Normal 21.0-32.0 [facility] Comment on above: Performed By: #### C VDTBH #### [facility] [address] [place] [address] Dr. Johnna Dixon Creatinine [Mass/Vol] 1.20 mg/dL Normal 0.70-1.30 [facility] Comment on above: Performed By: #### C VDTBH #### [facility] [address] [place] [address] Dr. Johnna Dixon EGFR-AF SAO TOMEAN >60 Normal >=60 [facility] Comment on above: Performed By: #### C VDTBH #### [facility] [address] [place] [address] Dr. Johnna Dixon EGFR-NON AF SAO TOMEAN 60 mL/min/1.73m2 Normal >=60 [facility] Comment on above: Performed By: #### C VDTBH #### [facility] [address] [place] [address] Dr. Johnna Dixon Globulin (S) [Mass/Vol] 2.9 g/dL Normal [facility] Comment on above: Performed By: #### C VDTBH #### [facility] [address] [address] [address] Johnna Dixon Glucose [Mass/Vol] 153 mg/dL Critically high 74-106 T [facility] Comment on above: Performed By: #### C VDTBH #### [facility] [address] [place] [address] Dr. Johnna Dixon Potassium [Moles/Vol] 3.9 mmol/L Normal 3.5-5.1 [facility] Comment on above: Performed By: #### C VDTBH #### [facility] [address] [place] [address] Dr. Johnna Dixon Protein [Mass/Vol] 5.6 g/dL Critically low 6.4-8.2 Th [facility] Comment on above: Performed By: #### C VDTBH #### [facility] [address] [place] [address] Dr. Johnna Dixon Sodium [Moles/Vol] 142 mmol/L Normal 136-145 [facility] Comment on above: Performed By: #### C VDTBH #### [facility] [address] [place] [address] Dr. Johnna Dixon Urea nitrogen [Mass/Vol] 14.0 mg/dL Normal 7.0-18.0 [facility] Comment on above: Performed By: #### C VDTBH #### [facility] [address] [place] [address] Dr. Johnna Dixon Urea nitrogen/Creatinine [Mass ratio] 11.7 mg/mg Normal [facility] Comment on above: Performed By: #### C VDTBH #### [facility] [address] [place] [address] Dr. Johnna Dixon CBC AUTO DIFFon 10-05-2022 BASO # 0.0 103/ul Normal 0.0-0.1 [facility] Comment on above: Performed By: #### S PUTGS #### [facility] [address] [place] [address] Dr. Johnna Dixon Basophils/100 WBC (Bld) 0.2 % Normal 0.2-2.0 [facility] Comment on above: Performed By: #### S PUTGS #### [facility] [address] [place] [address] Dr. Johnna Dixon EO # 0.0 103/ul Normal 0.0-0.7 [facility] Comment on above: Performed By: #### S PUTGS #### [facility] [address] [place] [address] Dr. Johnna Dixon Eosinophils/100 WBC (Bld) 0.2 % Critically low 0.9-7.0 [facility] Comment on above: Performed By: #### S PUTGS #### [facility] [address] [place] [address] Dr. Johnna Dixon Erythrocyte distribution width (RBC) [Ratio] 14.1 % Normal 11.0-15.0 [facility] Comment on above: Performed By: #### S PUTGS #### [facility] [address] [place] [address] Dr. Johnna Dixon Hematocrit (Bld) [Volume fraction] 39.9 % Critically low 42.0-54.0 [facility] Comment on above: Performed By: #### S PUTGS #### [facility] [address] [place] [address] Dr. Johnna Dioxn Hemoglobin (Bld) [Mass/Vol] 12.8 g/dL Critically low 14.0-18.0 [facility] Comment on above: Performed By: #### S PUTGS #### [facility] [address] [place] [address] Dr. Johnna Dixon IG # 0.01 10e3/ul Normal 0.00-0.03 [facility] Comment on above: Performed By: #### S PUTGS #### [facility] [address] [place] [address] Dr. Johnna Dixon IG % 0.2 % Normal 0.0-0.5 [facility] Comment on above: Performed By: #### S PUTGS #### [facility] [address] [place] [address] Dr. Johnna Dixon LYMPH # 0.7 103/ul Critically low 1.2-3.8 [facility] Comment on above: Performed By: #### S PUTGS #### [facility] [address] [place] [address] Dr. Johnna Dixon Lymphocytes/100 WBC (Bld) 14.3 % Critically low 20.5-60.0 [facility] Comment on above: Performed By: #### S PUTGS #### [facility] [address] [address] [address] Johnna Dixon MANUAL DIFF REQ NO Normal [facility] Comment on above: Performed By: #### S PUTGS #### [facility] [address] [address] [address] Johnna Dixon MCH (RBC) [Entitic mass] 30.7 pg Normal 25.9-34.0 [facility] Comment on above: Performed By: #### S PUTGS #### [facility] [address] [place] [address] Dr. Johnna Dixon MCHC (RBC) [Mass/Vol] 32.1 g/dL Normal 29.9-35.2 [facility] Comment on above: Performed By: #### S PUTGS #### [facility] [address] [place] [address] Dr. Johnna Dixon MCV (RBC) [Entitic vol] 95.7 fL Critically high 80.0-94.0 [facility] Comment on above: Performed By: #### S PUTGS #### [facility] [address] [place] [address] Dr. Johnna Dixon MONO # 0.6 103/ul Normal 0.3-0.8 [facility] Comment on above: Performed By: #### S PUTGS #### [facility] [address] [place] [address] Dr. Johnna Dixon Monocytes/100 WBC (Bld) 12.5 % Critically high 1.7-12.0 [facility] Comment on above: Performed By: #### S PUTGS #### [facility] [address] [place] [address] Dr. Johnna Dixon NEUT # 3.6 103/ul Normal 1.4-6.5 [facility] Comment on above: Performed By: #### S PUTGS #### [facility] [address] [place] [address] Dr. Johnna Dixon Neutrophils/100 WBC (Bld) 72.6 % Normal 43.0-75.0 [facility] Comment on above: Performed By: #### S PUTGS #### [facility] [address] [address] [address] Johnna Dixon Platelet mean volume (Bld) [Entitic vol] 9.5 fL Normal 9.5-13.5 [facility] Comment on above: Performed By: #### S PUTGS #### [facility] [address] [place] [address] Dr. Johnna Dixon PLT 213 103/ul Normal 150-450 [facility] Comment on above: Performed By: #### S PUTGS #### [facility] [address] [place] [address] Dr. Johnna Dixon RBC 4.17 106/ul Critically low 4.70-6.10 [facility] Comment on above: Performed By: #### S PUTGS #### [facility] [address] [place] [address] Dr. Johnna Dixon WBC 5.0 103/ul Normal 4.0-11.0 [facility] Comment on above: Performed By: #### S PUTGS #### [facility] [address] [place] [address] Dr. Johnna Dixon CULTURE BLOODon 10-05-2022 Microscopic examination of blood, culture Culture Observations: NO GROWTH AT 5 DAYS. Normal [facility] Comment on above: Performed By: #### B LDCX2 #### [facility] [address] [place] [address] Dr. Johnna Dixon Microscopic examination of blood, culture Culture Observations: NO GROWTH AT 5 DAYS. Normal [facility] Comment on above: Performed By: #### S PUTGS #### [facility] [address] [place] [address] Dr. Johnna Dixon CULTURE SPUTUMon 10-05-2022 CULTURE SPUTUM Culture Observations: NORMAL RESPIRATORY JONATAN. Normal [facility] Comment on above: Performed By: #### S PUTGS #### [facility] [address] [place] [address] Dr. Johnna Dixon Covid-19 PCR (CVDTB)on 09-19 SARS-CoV-2 (COVID-19) RNA REX+probe Ql (Unsp spec) Not detected Normal NOT DETECTED [facility] Comment on above: Result Comment: This test is not yet approved or cleared by the [place] FDA. When there are no FDA-approved or cleared tests available, and other criteria are met, FDA can make tests available under an emergency access mechanism called an Emergency Use Authorization (EUA). The EUA for this test is supported by the [place] of Health and Human Service's (HHS's) declaration [...] By: #### C VDTB #### [facility] [address] [place] [address] Dr. Johnna Dixon LACTATE/LACTIC ACIDon 2022 Lactate [Moles/Vol] 1.2 mmol/L Normal 0.4-2.0 [facility] Comment on above: Performed By: #### L ACT #### [facility] [address] [place] [address] Dr. Johnna Dixon Lactate [Moles/Vol] 2.4 mmol/L Critically high 0.4-2.0 [facility] Comment on above: Performed By: #### L ACT #### [facility] [address] [place] [address] Dr. Johnna Dixon Lab Reportson 10-05-2022 Lab Reports [id number] #1.00CD:127 Normal [facility] PROF CHEM 8 (BAS METB)on Anion gap [Moles/Vol] 12.6 mmol/L Normal [facility] Comment on above: Performed By: #### B MP #### [facility] [address] [address] [address] Johnna Dixon Calcium [Mass/Vol] 8.9 mg/dL Normal 8.5-10.1 [facility] Comment on above: Performed By: #### B MP #### [facility] [address] [address] [address] Johnna iDxon Chloride [Moles/Vol] 106 mmol/L Normal 98-107 [facility] Comment on above: Performed By: #### B MP #### [facility] [address] [address] [address] Johnna Dixon CO2 [Moles/Vol] 25.8 mmol/L Normal 21.0-32.0 [facility] Comment on above: Performed By: #### B MP #### [facility] [address] [address] [address] Johnna Dixon Creatinine [Mass/Vol] 1.41 mg/dL Critically high 0.70-1.30 [facility] Comment on above: Performed By: #### B MP #### [facility] [address] [address] [address] Johnna Dixon EGFR-AF SAO TOMEAN >60 Normal >=60 [facility] Comment on above: Performed By: #### B MP #### [facility] [address] [address] [address] Johnna Dixon EGFR-NON AF SAO TOMEAN 50 mL/min/1.73m2 Critically low >=60 [facility] Comment on above: Performed By: #### B MP #### [facility] [address] [address] [address] Johnna Dixon Glucose [Mass/Vol] 111 mg/dL Critically high 74-106 [facility] Comment on above: Performed By: #### B MP #### [facility] [address] [address] [address] Johnna Dixon Potassium [Moles/Vol] 3.4 mmol/L Critically low 3.5-5.1 [facility] Comment on above: Performed By: #### B MP #### [facility] [address] [address] [address] Johnna Dixon Sodium [Moles/Vol] 141 mmol/L Normal 136-145 [facility] Comment on above: Performed By: #### B MP #### [facility] [address] [address] [address] Johnna Dixon Urea nitrogen [Mass/Vol] 17.0 mg/dL Normal 7.0-18.0 [facility] Comment on above: Performed By: #### B MP #### [facility] [address] [address] [address] Johnna Dixon Urea nitrogen/Creatinine [Mass ratio] 12.1 mg/mg Normal [facility] Comment on above: Performed By: #### B MP #### [facility] [address] [place] [address] Dr. Johnna Dixon SPUTUM GRAM STAINon 10-06-19 COMMENTS Normal [facility] Comment on above: Performed By: #### S PUTGS #### [facility] [address] [place] [address] Dr. Johnna Dixon DIPHTHEROIDS Normal [facility] Comment on above: Performed By: #### S PUTGS #### [facility] [address] [place] [address] Dr. Johnna Dixon EPITHELIALS <25 Normal [facility] Comment on above: Performed By: #### S PUTGS #### [facility] [address] [place] [address] Dr. Johnna Dixon FUNGAL ELEMENTS Normal [facility] Comment on above: Performed By: #### S PUTGS #### [facility] [address] [place] [address] Dr. Johnna Dixon GRAM NEG BACILLI FEW Normal [facility] Comment on above: Performed By: #### S PUTGS #### [facility] [address] [place] [address] Dr. Johnna Dixon GRAM NEG DIPPLOCOCCI Normal [facility] Comment on above: Performed By: #### S PUTGS #### [facility] [address] [place] [address] Dr. Johnna Dixon GRAM POS BACILLI Normal [facility] Comment on above: Performed By: #### S PUTGS #### [facility] [address] [address] [address] Johnna Dixon GRAM POSITIVE COCCI FEW Normal [facility] Comment on above: Performed By: #### S PUTGS #### [facility] [address] [address] [address] Johnna Dixon WBC (Bld) [#/Vol] 10*3/uL Normal [facility] Comment on above: Performed By: #### S PUTGS #### [facility] [address] [address] [address] Johnna Dixon SYMPTOMATIC COVID-19 ANTIGEN on 10-05-2022 EUA Statement SEE BELOW Normal [facility] Comment on above: Result Comment: This [...] sooner. Performed By: #### C VDAGS #### [facility] [address] [place] [address] Dr. Johnna Dixon SARS-CoV-2 (COVID-19) RNA REX+probe Ql (Unsp spec) Negative Normal NEGATIVE [facility] Comment on above: Performed By: #### C VDAGS #### [facility] [address] [place] [address] Dr. Johnna Dixon XR CHEST 1 Von 10-05-2022 XR CHEST 1 V EXAMINATION: XR CHEST 1 V HISTORY: COUGH COMPARISON: 05/25/2022 TECHNIQUE: [...] Date: 2022-10-05 11:44 Normal [facility] Coding Summary.on 10-01-2022 Coding Summary. CD:[id number] Ww+PGhlYWQ+AL5UMUBhY 51ztZVtqW9lB0OVFWoAI ywgQVBQTElOSyIgbmFtZ A0cbGYzWIRt IC8+KV7uSOXpAydtrXXx p2L1oLF3E48nif1fPEio tRZ5QYFpOjUuzhbkl4bu xAo4DEzrMxasUfAa HGSgeQ80IFJ0fW31Ud05 lYRfgZBxv2pbwWi4YgKt TDKxDLS9vAmqIZasg5Cb AKMzX70xmZZkz9L6 IGNvbGxhcHNlOyBlbXB0 jQ0rQXfiafkxf2chakac Ipi4uz61tGDzz8P5uER8 B4KinmJ6PKIhxXLs KfjfvNHHoJ8gjbbki6ce tfwnDoBtUDOnTUi6FBl5 OJGlnKkaGtTeYH94UWW9 VHLdprWnM7QhWZNp kTjdOvF9w0H4Lv6QF3PF XxckT8UBZQYQINhapSG+ AD29vm78A7ZmQxldRdd8 DZYzRTL1mJH0aK5u DTTqYZypg8Y6rOQ6J8Ns ofIuzz6hn7euWDGrCQii W51niOKfm4G2XTQpkHU5 XNSmvVjnEqTvpR36 Oyc+MUSjuMmyp5FxIhrf t2ltn9jfyEi4CwrwIHZs geUmzOfwWSA5j4AwKb2j LJLvjMQ9xAF7jA2x MxIkNkH5BLrrV770FpKt cFVuPghyU81bR5JzgGE+ QHNdVck1BBRumRsdYM9x G0VoGXKvkofotRUu bGoeRK5qCUYuvgueDDDn aR4cWAZrT8v9EaGoMpX1 DFtpO0NoTVMpmybpIm61 oM4wAgAtDgM9QYac H9DnymU8IPGpnOSgTMpw XIG5L61ay9F7NRGeKWXl QSQ3rGU7zE2foWlmvueu bGVmdDsgdmVydGlj KAusGSvkV454FZUahCdh PkNvZGluZyBEYXRlOiAg MDQvMTMvMjAyMzwvdGQ+ BVFxZJP3oNtaCFLn oZDaDFsdPm1gnFikyZno VH5tNRZmubxrTHPhqG8t BYNlzXLnjMlvNX3bFMMq xdtfe079LwZbXWR0 BNFjbEXnR3SijX4vNoUt UIYiOFZvA9BjlLYgHKsn G034FZkeZwA5CFGrclJj R8LvHIDhwYiyRpO0 p9O4Ey9Jh3LkghspR9Zo wUFbGwXqMrtkLJp8L1Ch PjwvdHI+KI60JOQeTL16 KPs8FTZ7iDspMZxo HWQuJ9FwkZ9lOuWvDDAk ZGRkOyc+PHRhYmxlIHdp ZHRoPScxMDAlJyBzdHls MD0tOb0dLWJeOMFh yApooYBuPoFca7jwXLGc XJpgOM6ftScqT8XsuPM3 KBGxv4d0Rw67E74tS8Kj dXA+LKMobIX8kMI5 bY7nXcAsQlV8LUyyP427 FnDlnMAkVgofe5hsb8im vJv2MyM6VFXfoxRqoAzu QJP0l7CtJo58H46q IHdpZHRoPSIxNSUiIHZh zJttpz0flX6gJz9+PGNv lXJ1cZX1kT5nKtSnTtJ0 YBvrF272BkVnrNOw Vrxus2ltx3yxbKa7ThSf UOJfxaWnzNblEBC2v0Hf Uk90O5IfnJiej9BaZre7 af94xNKgk5N2dVQ9 Z6WoWXCqcvomeLGohDfx HG6rPPMoupfuQSNioP0f AIKkT3t5SbOoQdQ6CRaz H4VfupC5NCNisXQb OKSdiOVTzM3tlcbyi7nl zhtoCzTzIAHkXBj9YPu4 TUJprOdgKeViQGG5BfX1 CNU9xGAkbN9fqWij eirctT2nRyu+NDE4dPGx sULGWU7sQnsylMO+PHRk NGY5fUhmOWwbDLIrmK9i IREbP0f5GrSnXxR6 GZqmG6KdzoE4MVChxBGf ICVyqPGQoU2yrceza7ey swphIeDiMFZwGHz6ZCn1 LWFsaWduOiBsZWZ0 JpQ0SGK7yFJfqF6fmTgx enjivA7rIma+QmlydGgg XCF0DQa8J7RkJhw3BKMa oSoxHX6tsALgHXsa Vv3ahXjorWsaEZ7eLUUy rfkzk832LwBlz3afMSAz qDXhYTgyCKR4V66zf1W7 IACiFSVlEXA0xDF1 uR9ieXzomaroxMJhtPgk brOilSplBDsiOHltB587 QVLxgPnzYrSlABe9C4Fv Gmv2ZDPszUepDL9u lNMvZSxnNz0fiMtrbGbz AE0oRLAtmrsft209GbLq e4kpTJGeaFLdHJoxXMV6 E99xk3F7GSAsNLDh DAI8nQU2tE4ozMnazbaz bGVmdDsgdmVydGljYWwt QXfwP679QEXnkBgwNwNw iDh4C7YbKgq2YEGi bWjbDQ6ouWHlFDbwOq8k jCvudZmbKD8dXUOhgosg f944PsUkk8noEBXntNLp DFqdNVE1O76im1O7 RHRdMUVmPRC8yTH5gN1o bGlnbjogbGVmdDsgdmVy eTuaJSlyDXlqO895ERBz cDsnPlBhdGllbnQg EVkhEGw6X2KhGhifvPJ+ GW62QYRbKD50iVHfaAPa e9djnBt9LpEgMNViPFZ8 gLumOMcwh3TrXWNz G35loXCcy6H9HAMtlNtv yTOlRtWaaYL1bZ6uIOxu sewze6skckplQbrpl2fj hm53qA04G46cFJgc ZHRoPSIzMCUiIHZhbGln bv2okG7vKr8+PGNvbCB3 fVX5wE2wZAUkClV5FGdq P465NwCgxBFbNvsy q5vsh7vjhTj1YlX6SKLn lmVksAyoAVC8h7FcIo20 M15cXSkmPFIqQJOnFWWe KDWgfEuvha2hxO4o Ii8+RDAkpPF4cYV2nZ5n EbBlOjO9ZGakJ138MiJn gRGdRnytU31dL1KoyNS+ HMKpQlj0EUPwgLfz UM2nsIPgTPywQs6rRYY2 KsDbPdWrZLebW1OtZEWm cdflcqeseAU9AJWzZDWa kT46Tg7wrQfmMUHl zTCZdH4rhcqkw2pdpbri OlKaPIKmIGz3GHb8MLVa pHpvHfLdSIC5YbA5NSC3 gGRojK8meEolczss lK4rB7AvEZLolaojTd97 eW6tYiHxOzC3DRxrBav+ N7rVYivKYHRtYHfMZVFR MA27I7HxJov6DCLh nTyuMK3kuEDbJXfyHf6j oLbuzNlqFD8rPLTjuqax MXVheK0vFGQplDPdtNsn TB7iBVSuhqtaj351 HlUgJWP1JTDcbLScE5Fh rP3wLzPoSLLaCVAsD4In tQWdJAlvB829YPcgMgW7 KLNwlwEhU1IlCAYh eXxuTkV7x7C1Wj1aXU0w FJ9tAAGeCD08ZR86xGOv s5R2cUI5W0PtROMvecrw ocxxsTV7UIBtZAYk rY18qAIwQFciId3gw6E9 a864IRSwIIMdlM48Zv3m cNooBDOnpLOZmP7zqwch v1zcjgkyEgKfRZRm DCp8MLt6KSDafAbxLpVu ITL5WgF4VRY9kBEgrP5o rVfvotaupB4sCbb+NzEg GNWnbqI1B5EsXku8 NOJpcBbvUQ3dwPZsXXlu El9lmJentPiwRG2nBFCt pryaSKYayY1yQCLngCRq xUruXR2sODXtjidr d008VvPnWYX4QKUnfXAs G8IryJ1xCrRkLUCvYVEi O1GesPIbCCuvM490DYvi OgK2YOEwmzKhJ5Ld FXPneHwdKgY8d6R6Os8R IFoxAN52GW73pUNqt6F8 fZX1M3ZoPPEnqrutlxza lKD8QAWpIVPrcG35 wQJkDQmdTm4ia6X7u568 GWTtVGVknK21Lg4bjDbk GRWnfRZNdU5kfajih2qr cjogIzAwMDAwMDt0 FPr9NLMzuBhlAqRvAOR4 SmP3ILC9yHMuiP1byNvb mgsyjZ6vIts+D4A8kLS1 aWVudDwvdGQ+PC90 yx09V5OwVhtfDam6ZPJu PIS2xRD7iJ6cJFBcESaz o8Z0gWK4Y1LfttAykj0c u3ydVUZeDIxnF98h aRWhd4M6MMRtdTP4ECWz fStjKwJyeN56Ivm+PGNv sSpvp4FjJcors2gbu7ld uRm1GyJdBDWothOu zTpbTLN3v6RgEz86E75s IHdpZHRoPSIzMCUiIHZh bWkpzw4pwT0eAj2+PGNv gWP8mFZ9vV0uAjUo FyZ6DGedQ704XhVosLXu Qgmly5vey5fazLt9NfOz WBOtltGxkNimGXZ0u4Zf Km53C9YasZrjc5Cw Ahs0pu17yJFvt4X3sDU1 U8VaHMYxkhjcgHDlbDbu LS0nHQDninkzNGSnpY0z TVJiF7l0VoUjRoL9 RTgkS8GrkbO8OILwdPTv UVOdfLIRfI5ilxqlx9nd kybdYjHrUHIzMTd7HHe8 LWFsaWduOiBsZWZ0 JrK2YSL5nEZjoF7klYgi jeizdY8hTgs+ZEm7e0zf kXAsGJ3gqHM2QW00HB09 uNRfj1D6aJW1E6Mh DNZdmueqpkwpeIU0FPLj CRZwpO58Ey3xuWecMu4o NGZwMAG1GALhlRJmK7Zu oU4aIrEiOZAoIBVm U4YysHItHXgqI878GJyl WxL8RQXetjWnU9BhWAEb dZiqGtR5n7S8Fi4GFS56 UN63WW60qLEfw1I0 pKO0E5ZtBTArznzzjwvq hIB2JBJuXITxkK86Gb1t fTufOh7zDAUoGBN3JDQi rJPdV9NfqN8uRfMb KOAlTISvK0PkbXLsJXhg F052TEvmQbS6PWSachOo H5TkEHSilXhpQtI6x1O9 Dg0ATx54FV76DE31 mPDyb1I8jLD8G6CxIYDv oxuumvqoeEZ7BDToFUQz uY59Ym8nzVrvNq1tNXYl ECN9HVQfrHYeT3Pe oX7rUeTpBSIhCWJhG1Hd xHVrNHjfO743FSraDgO8 KJDnvbKlD9JrOJKrgKvw MjL8u5F5Sf0TYYbl wrx3J7JpVanutIV+PC90 TVBuGP23yAUpmAOwp5nn bVe5FwAiCAEyXEQ0iBnv AQakw8CdKTGzR91i uCZft9C1 (more content not included)... [facility] Consent for Procedure/Surger yon 09-29-2022 Consent for Procedure/Surgery [id number]# 1.00CD:127 [facility] Consent for Treatmenton - Consent for Treatment [id number] #1.00CD:127 [facility] IntraOperative Documentson 0 09-29-2022 IntraOperative Documents [id number]# 1.00CD:127 [facility] Main OR Intraoperative Recor don 09-29-2022 Main OR Intraoperative Record IntraOp Document Type FTURO Summary Primary Physician: Lionel CARRINGTON MD Finalized Date/Time: 09/29/22 10:53:58 Pt. Name: MARY DIAZ/Sex: 1950 Male Med Rec #: [id number] Physician: Lionel CARRINGTON MD Financial #: [id number] Pt. 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 Surgeon Description CYSTOSCOPY Primary Procedure Yes Primary Surgeon Lionel CARRINGTON MD Start 09/29/22 10:50:00 Stop 09/29/22 10:55:00 Anesthesia [...] PROSTATE CANCER, clear bladder Last Modified By: PAULINA Rene RN, Cheryl 09/29/22 10:53:27 Post-Care Text: The patient [...] MARY DIAZ/Sex: 1950 Male Med Rec #: [id number] Physician: Lionel CARRINGTON MD Financial #: [id number] Pt. Type: O Room/Bed: / Admit/Disch: 09/29/22 [...] No Pain Comment: na Skin Integrity Intact, [place], Warm, & Dry Vitals - EU Blood [...] Type: Local. Procedure: Local Cystoscopy. Complications: None. Risks/Benefits/Infor med Consent: Surgical risks, benefits, details of the [...] Elec tronically Signed By: DEVONTE NOBLE, Lionel Gama.br\Date and Time Signed: 09/29/22 10:57 EDT Urine [...] on: 09/28/2022 09:14:07 Performed By: #### 1 [id number] ####[facility] [place] [address] US SINGLE QUAD RT UPPERon US SINGLE [...] Date: 2022-09-24 09:46 Normal [facility] AMYLASEon 09-21-2022 Amylase [Catalytic activity/Vol] 78 U/L Normal 25-115 [facility] Comment on above: Performed By: #### C VDTBH #### [facility] [address] [place] [address] Dr. Johnna Dixon CBC AUTO DIFFon 09-21-2022 BASO # 0.0 103/ul Normal 0.0-0.1 [facility] Comment on above: Performed By: #### C VDTBH #### [facility] [address] [place] [address] Dr. Johnna Dixon Basophils/100 WBC (Bld) 0.5 % Normal 0.2-2.0 [facility] Comment on above: Performed By: #### C VDTBH #### [facility] [address] [place] [address] Dr. Johnna Dixon EO # 0.1 103/ul Normal 0.0-0.7 [facility] Comment on above: Performed By: #### C VDTBH #### [facility] [address] [place] [address] Dr. Johnna Dixon Eosinophils/100 WBC (Bld) 1.9 % Normal 0.9-7.0 [facility] Comment on above: Performed By: #### C VDTBH #### [facility] [address] [place] [address] Dr. Johnna Dixon Erythrocyte distribution width (RBC) [Ratio] 14.5 % Normal 11.0-15.0 [facility] Comment on above: Performed By: #### C VDTBH #### [facility] [address] [place] [address] Dr. Johnna Dixon Hematocrit (Bld) [Volume fraction] 39.1 % Critically low 42.0-54.0 [facility] Comment on above: Performed By: #### C VDTBH #### [facility] [address] [place] [address] Dr. Johnna Dixon Hemoglobin (Bld) [Mass/Vol] 12.8 g/dL Critically low 14.0-18.0 [facility] Comment on above: Performed By: #### C VDTBH #### [facility] [address] [place] [address] Dr. Johnna Dixon IG # 0.05 10e3/ul Critically high 0.00-0.03 [facility] Comment on above: Performed By: #### C VDTBH #### [facility] [address] [place] [address] Dr. Johnna Dixno IG % 0.7 % Critically high 0.0-0.5 [facility] Comment on above: Performed By: #### C VDTBH #### [facility] [address] [place] [address] Dr. Johnna Dixon LYMPH # 2.0 103/ul Normal 1.2-3.8 [facility] Comment on above: Performed By: #### C VDTBH #### [facility] [address] [place] [address] Dr. Johnna Dixon Lymphocytes/100 WBC (Bld) 27.4 % Normal 20.5-60.0 [facility] Comment on above: Performed By: #### C VDTBH #### [facility] [address] [place] [address] Dr. Johnna Dixon MANUAL DIFF REQ NO Normal [facility] Comment on above: Performed By: #### C VDTBH #### [facility] [address] [place] [address] Dr. Johnna Dixon MCH (RBC) [Entitic mass] 31.3 pg Normal 25.9-34.0 [facility] Comment on above: Performed By: #### C VDTBH #### [facility] [address] [place] [address] Dr. Johnna Dixon MCHC (RBC) [Mass/Vol] 32.7 g/dL Normal 29.9-35.2 [facility] Comment on above: Performed By: #### C VDTBH #### [facility] [address] [place] [address] Dr. Johnna Dixon MCV (RBC) [Entitic vol] 95.6 fL Critically high 80.0-94.0 [facility] Comment on above: Performed By: #### C VDTBH #### [facility] [address] [place] [address] Dr. Johnna Dixon MONO # 0.5 103/ul Normal 0.3-0.8 [facility] Comment on above: Performed By: #### C VDTBH #### [facility] [address] [place] [address] Dr. Johnna Dixon Monocytes/100 WBC (Bld) 6.9 % Normal 1.7-12.0 [facility] Comment on above: Performed By: #### C VDTBH #### [facility] [address] [place] [address] Dr. Johnna Dixon NEUT # 4.7 103/ul Normal 1.4-6.5 [facility] Comment on above: Performed By: #### C VDTBH #### [facility] [address] [place] [address] Dr. Johnna Dixon Neutrophils/100 WBC (Bld) 62.6 % Normal 43.0-75.0 [facility] Comment on above: Performed By: #### C VDTBH #### [facility] [address] [place] [address] Dr. Johnna Dixon Platelet mean volume (Bld) [Entitic vol] 9.3 fL Critically low 9.5-13.5 [facility] Comment on above: Performed By: #### C VDTBH #### [facility] [address] [place] [address] Dr. Johnna Dixon PLT 235 103/ul Normal 150-450 [facility] Comment on above: Performed By: #### C VDTBH #### [facility] [address] [place] [address] Dr. Johnna Dixon RBC 4.09 106/ul Critically low 4.70-6.10 [facility] Comment on above: Performed By: #### C VDTBH #### [facility] [address] [place] [address] Dr. Johnna Dixon WBC 7.4 103/ul Normal 4.0-11.0 [facility] Comment on above: Performed By: #### C VDTBH #### [facility] [address] [place] [address] Dr. Johnna Dixon LIPASEon 09-21-2022 Lipase [Catalytic activity/Vol] 114.0 U/L Normal 73.0-393.0 [facility] Comment on above: Performed By: #### C VDAGS #### [facility] [address] [place] [address] Dr. Johnna Dixon LIVER PROFILEon 09-21-2022 Albumin [Mass/Vol] 3.9 g/dL Normal 3.4-5.0 [facility] Comment on above: Performed By: #### C VDTBH #### [facility] [address] [place] [address] Dr. Johnna Dixon Albumin/Globulin [Mass ratio] 1.6 {ratio} Normal [facility] Comment on above: Performed By: #### C VDTBH #### [facility] [address] [place] [address] Dr. Johnna Dixon ALP [Catalytic activity/Vol] 59 U/L Normal 46-116 [facility] Comment on above: Performed By: #### C VDTBH #### [facility] [address] [place] [address] Dr. Johnna Dixon ALT [Catalytic activity/Vol] 23 U/L Normal 16-63 [facility] Comment on above: Performed By: #### C VDTBH #### [facility] [address] [place] [address] Dr. Johnna Dixon AST [Catalytic activity/Vol] 8 U/L Critically low 15-37 [facility] Comment on above: Performed By: #### C VDTBH #### [facility] [address] [place] [address] Dr. Johnna Dixon BILI, CONJUGATED 0.1 mg/dL Normal 0.0-0.2 [facility] Comment on above: Performed By: #### C VDTBH #### [facility] [address] [place] [address] Dr. Johnna Dixon Bilirubin [Mass/Vol] 0.3 mg/dL Normal 0.2-1.0 [facility] Comment on above: Performed By: #### C VDTBH #### [facility] [address] [place] [address] Dr. Johnna Dixon Globulin (S) [Mass/Vol] 2.5 g/dL Normal [facility] Comment on above: Performed By: #### C VDTBH #### [facility] [address] [place] [address] Dr. Johnna Dixon Protein [Mass/Vol] 6.4 g/dL Normal 6.4-8.2 [facility] Comment on above: Performed By: #### C VDTBH #### [facility] [address] [place] [address] Dr. Johnna Dixon PROF CHEM 8 (BAS METB)on Anion gap [Moles/Vol] 13.4 mmol/L Normal [facility] Comment on above: Performed By: #### C VDTBH #### [facility] [address] [place] [address] Dr. Johnna Dixon Calcium [Mass/Vol] 8.9 mg/dL Normal 8.5-10.1 [facility] Comment on above: Performed By: #### C VDTBH #### [facility] [address] [place] [address] Dr. Johnna Dixon Chloride [Moles/Vol] 106 mmol/L Normal 98-107 [facility] Comment on above: Performed By: #### C VDTBH #### [facility] [address] [place] [address] Dr. Johnna Dixon CO2 [Moles/Vol] 25.6 mmol/L Normal 21.0-32.0 [facility] Comment on above: Performed By: #### C VDTBH #### [facility] [address] [address] [address] Johnna Dixon Creatinine [Mass/Vol] 1.21 mg/dL Normal 0.70-1.30 [facility] Comment on above: Performed By: #### C VDTBH #### [facility] [address] [address] [address] Johnna Dixon EGFR-AF SAO TOMEAN >60 Normal >=60 [facility] Comment on above: Performed By: #### C VDTBH #### [facility] [address] [address] [address] Johnna Dixon EGFR-NON AF SAO TOMEAN 59 mL/min/1.73m2 Critically low >=60 [facility] Comment on above: Performed By: #### C VDTBH #### [facility] [address] [address] [address] Johnna Dixon Glucose [Mass/Vol] 115 mg/dL Critically high 74-106 T [facility] Comment on above: Performed By: #### C VDTBH #### [facility] [address] [address] [address] Johnna Dixon Potassium [Moles/Vol] 4.0 mmol/L Normal 3.5-5.1 [facility] Comment on above: Performed By: #### C VDTBH #### [facility] [address] [address] [address] Johnna Dixon Sodium [Moles/Vol] 141 mmol/L Normal 136-145 [facility] Comment on above: Performed By: #### C VDTBH #### [facility] [address] [address] [address] Johnna Dixon Urea nitrogen [Mass/Vol] 19.0 mg/dL Critically high 7.0-18.0 [facility] Comment on above: Performed By: #### C VDTBH #### [facility] [address] [address] [address] Johnna Dixon Urea nitrogen/Creatinine [Mass ratio] 15.7 mg/mg Normal [facility] Comment on above: Performed By: #### C VDTB #### [facility] [address] [address] [address] Johnna Dixon Patient Educationon 09-22-19 Patient [...] if anything looks unusual. Men with a qnbswz-ebiu-auesrm risk for skin cancer may want to see a ammunition specialist (restrooms or lounges maid) for an annual body check. Where to find more information ? National Cancer [place]: https://www.cancer.g ov/about-cancer/scre ening ? Centers for Disease Control and Prevention: https://www.cdc.gov/ cancer/dcpc/preventi on/screening.htm ? [employer]: https://www.cancer.o rg/latest-news/4-can jma-crclxyelp-oqoad- for-men.html Contact a health care (more content not included)... Normal [facility] Urine Cytology ([facility])on 0 09-21-2022 UC Method of Extraction Voided Normal [facility] Comment on above: Performed By: #### 1 [id number] ####[facility] [address] [place] [address] Number of Jars 1 Invalid Interpretation Code [facility] Comment on above: Performed By: #### 1 [id number] ####[facility] [address] [place] [address] Specimen Urine Normal [facility] Comment on above: Performed By: #### 1 [id number] ####[facility] [address] [facility] [place] [address] Type of Service Technical Only Normal [facility] Comment on above: Performed By: #### 1 [id number] ####[facility] [address] [place] [address] Ambulatory Visit Summaryon 0 08-17-2022 Ambulatory Visit [...] NOBLE, Lionel Burgos Where: [facility] CREATININEon 08-04-2022 Creatinine [Mass/Vol] 1.31 mg/dL Critically high 0.70-1.30 [facility] Comment on above: Performed By: #### C JANIS #### [facility] [address] [address] [address] Johnna Dixon EGFR-AF SAO TOMEAN >60 Normal >=60 [facility] Comment on above: Performed By: #### C JANIS #### [facility] [address] [address] [address] Johnna Dixon EGFR-NON AF SAO TOMEAN 54 mL/min/1.73m2 Critically low >=60 [facility] Comment on above: Performed By: #### C JANIS #### [facility] [address] [place] [address] Dr. Johnna Dixon CTA NECK WO W CONon 08-04-19 CTA NECK WO W CON EXAMINATION: CTA NECK WO W CON HISTORY: Carotid artery stenosis [...] by: ALLI CORTES Date: 2022-08-04 14:04 Normal [facility] US CAROTID ART BILon 023 US [...] by: ALLI CORTES Date: 2022-07-28 12:00 Normal [facility] Ambulatory Visit Summaryon 0 07-20-2022 Ambulatory Visit Summary MARY DIAZ Sue :1950 Visit Date:07/20/2022 Ambulatory Visit Instructions Your Diagnosis History of bladder cancer Tests Performed Urnls Dip Stick Auto w/o Microscopy POC 48156 Your Care Team Attending Physician - DEVONTE [...] AM EST With: Where: [facility] Normal [address] [place] [address] \.br\ Medications\.br\ What How Much When Instructions\.br \ Unchanged carvedilol (carvedilol 6.25 mg Tab) 2 [...] Urnls Dip Stick Auto w/o Microscopy POC 77526 (07/20/2022)\.br \ POC Test Comments - UA prior to Mitomycin tx\.br\ Bilirubin Urine Dipstick - Negative\.br\ Blood Urine Dipstick - Negative\.br\ Glucose Urine Dipstick - Negative\.br\ Ketones Urine Dipstick - Negative\.br\ Leukocytes Urine Dipstick - Negative\.br\ Nitrite Urine Dipstick - Negative\.br\ Protein Urine Dipstick - Negative\.br\ Specific [place] Urine Dipstick - 1.020\.br\ Urine Appearance Urine Dipstick - Clear\.br\ Urine Color Urine Dipstick - Yellow\.br\ Urobilinogen Urine Dipstick - Normal 0.2-1 EU/dl\.br\ pH Urine Dipstick - 5\.br\ Allergies\.br\ Percocet 5/325\.br\ codeine (hives/rashes)\. br\ Problems\.br\ Ongoing - Any problem that you are currently receiving treatment for.\.br\ Acute gouty arthritis\.br\ Bladder cancer\.br\ History of kidney stones\.br\ History of prostate cancer\.br\ HTN (hypertension)\. br\ Impotence\.br\ Historical - Any problem that you are no longer receiving treatment for.\.br\ Acid reflux\.br\ Cancer of prostate\.br\ \.br\ [facility] Consent for Procedure/Surger yon 07-15-2022 Consent for Procedure/Surgery [id number] #1.00CD:127 Normal [facility] Consent for Procedure/Surgery [id number] #1.00CD:127 Normal [facility] FISH ([employer])on 0 07-15-2022 [facility] FISH Diagnosis Info Invalid [...] on: 07/15/2022 15:42:11 Performed By: #### 1 [id number] #### [facility] [address] [place] [id number] Coding Summary.on 07-08-2022 Coding Summary. CD:[id number]:[id number] Gh0bWw+PGhlYWQ+PE1FV GRhX75ofJGlaI8YC2oFZ G5MGICTSUUYDR4FRK3se VN8VUjeS5JftyCm DjjukBOkYA90NGh7GCX7 yQevZKyviF7fnTDdJ3d4 ErTsQP86lY40WQaqVEQd LnX6DxOgmmbfnURc N5nuRzVhqTTmDjt+PHRh YmxlIHdpZHRoPScxMDAl JvQbgFjdWQ6mAc2nILYj LWNvbGxhcHNlOiBj r2ilBSLpHCrzML3cdUxi A9KhtWN8AMOtp3r6Fk41 dHI+FJEmXHC6iTxzFDae v848KgHxt1bbSVG2 nHPsTFeeRZU0X08ik4T5 GBKnGHWmKPV4mCH8dQ8r eGaecgdnC3DbyONuAmM7 FYE7zHRmiV3vgFbu tskcdJ6sLgp+Y36TWU5T SXRMOH6HEzs9B1YiHfos dHI+VE73MEYuNL46zYSq wYMic7hciCd6EwYu DWKeDRQ9kWboSMgtt3Ly BHYlZ19zsMWol9P2EGSc eNujsBLzRcThjZB2pZ0w TKbofyknz2bstldn Gkokk8sndc99xF32G55a MZvcNFMyKXI9JYQxEEXi eOyobe9zcV5yYw1+IDxj j2kdb9ivzSu9BuCx NMTuiwNmsHhyQGB2z5Qg Qx50J5NscOriy5ByTqc4 ml98cYQwh8A6wEN9KBtu FTCobW1hVGddHlJ8 ZNQkLtMiqD49yTXeCDww Gb8heAaxwTpmBY5iRZOl kpgnFAPcwX0iHBZljQDl aYtqZK3hMYJopllj t033WgIfNYX7EZYxkZLp H1VooH1yVvLaXEIyFRDq C1HspDWbHXheD617LHui JsW0ONQmsxGvA0Fq FFKvwBsdYdV2r7X2Qo1L m6WdurjxODR1IPzxQVVj NjT1WbWvPwT5M2BfRmx5 USBzdRtnRI0cP4Be AOLtysxobsjzdFC5LUDc ZHAlbD76lSHkWNglOo2m t4K6i562YKQbZHYqcO76 Pg0vxEmbMUKbwHOV xS7nbtrpx7kswlmdMlLk YVYyILg7VCt3EHBwgJkg ZnBtPMT9OxD0PKE0gITx nY7neLzibdfcbF5p Oyc+W99llV7tRDC5ZQF1 xfaqLTLdbsOnRE67RF21 K3LuRkfmwKSgmQB+PGRp bgRfdTqpJP1zUzIe u0wyg4LwJFcoX4KmEUNb THqpBby0IPWmSBV8rIG2 pW0zJXNvWMasi9Q8rBA1 N0OqnjKobj4ir2ft JGMqSZuwY19meWRit1T7 UEMblEP2LDIzpLgyDlYv xS56Hkh+SHFnyQgkm8Ji Bcmte1apr4srsKd0 IjMwJSIgdmFsaWduPSJ0 i9TbAf07J40lDTyeFNFd RJScXYCxEEFjgPneih0r pL2rTy8+PGNvbCB3 nWS0uJ7tLZRuLaW3XBlu Z787CyWrnSOzNnrsi6tm a2nsrDc1BjXvSIIhdsHw gSmnAOV9x5IcMh01 W05rAUmiWUVeKUKnSRDc LJLvpNprsw6zcT9rQq7+ YC6qi8zqim76sP51pMD+ FXFdIPB8eLhjHGly RSHeaB2iHNtsYcZ8TUDi KlFvoE81rFObHIjxEl8z oGkqcYuyUP3xWTAspymx k850UmDkv6exYUOe rMFaBHllKAG2C41pk2F5 FDVoQWKwWXS1pXT1iC3k bGlnbjogbGVmdDsgdmVy nSvpZLlmQXgbI407 IHRvcDsnPlBhdGllbnQg SmQnPRc4D0IkXvc9WETw pKbpDN3iuMSkNOygLs3v pKewqTqtTC3aOABc ntwey353HtFed4dfETDx tNGxFCkySLY8T84ay0G3 OZMzEHDqEHG3xDK4vQ7l bGlnbjogbGVmdDsg lyAlhGgnBOloHNshY908 IHRvcDsnPkJpcnRoIERh zUI3VZ77NG59jXBoc7V1 wYL6B8WiEYCktpsh gmwuyYX6CUGeRYCgiX75 Ur6jkJhwEj2uRGXbKWY9 IBSdkHKzT8BemF7kFzJl AQFeNNOoN8NuhAMs ATpqQ599WGjkWoV0GATg pjVmD7EzNWCkcPeiOrC3 o7K2Sv0IY0D9CU24VV44 tKQnm5L3qXC2Z2Vh CMAvykypgksvcMH5FOCw LBBtzA10Ts7zsZteFf5a ORUuZDY1MIFenLLlF1Qd iW4mFbZbQRVeICTc G7VusAWnVHqrC552BQld DnN4DLWityXmG5KwSGUi uKepJkD9d5M4Gn0JBCr8 RM91AD13rSOub9D2 zWA7V6XfLLCrchhbgpxy gZS3NCLiTHUouB27La4g lYdeSi7jQQVpKIO0REHo iJYaL8ItgN0yEdMd ILNrEFRfP3UlrOTcZUnj L152OQfmPcV5RZAdpdCr E0EtGDMysXbjYoF2o4M4 Tl8JPSNtES50JVD1 wVN9RF37SE69I1DpKuqg dGFibGU+PHRhYmxlIHdp ZHRoPScxMDAlJyBzdHls XW0eFi8oUVDkZLOk cMxurUFdTfAle0rzNCPu IKoiLJ1aiVrgF1IcvTX8 AHYse9l5Pp47Y02qG1Vh dXA+TSNaqHC3cDQ6 sU2bEkBgEyM4NBniL763 VuFqbMMhLcldi1xvt7io jBi2CnH9JBOkpjYyrBpi HYJ2k6PoWk60T52m IHdpZHRoPSIxNSUiIHZh gNacjd6bjC8vJl2+PGNv qLX1lDF5xS9tEbRuItM0 JHocX115LnDzlAKk Vnxfg8tkt5tscKa8BxPj ETCjmgKkwHsxPMF0s6Ay Ww48Q4RiiDsjh6QvCzf7 lx06xYTzc9P1pOC2 A9AkYJLgjpzzrFIqgPxv RE7oCUQdzuwsWHEviO7y XOAoK6r5FdAqKbR2UEwi H5CsyaD8KDNjeLZu YNfdFCM4Q16yh3D2LBMy WCUyKYT4dJT5yM9dfFgf bjogbGVmdDsgdmVydGlj WZjpXTvmV623GKDi oQbiOTKjiX1qDIGvgCXp rDgfCA9vWDPzlytoSctD FW2POLASZXJSZK8SKyTR FU79IJ89oQVmh7M5 tFX2V2ZiNDWenqddnnmi nEX2UUPiIDGpvK03gKOt HYjzPq3gn8H8y840XKNv UKQhrC03Wf4lyEtu TYQvvBCAvC1rqclcm9mj vgfhVeVoGOMhFAk2NQh0 NCLeaKacJhQvZFJ5FyE6 USE8jGJxnV8tkOxr jfpshP9iPvw+MDgvMTUv TFj2NOjefBW+PHRkIHN0 wAdvITrnTTAmfL0lGZZv S3c6LoPrSfD0RWjo R1BtMNExybooNz25sS3y KmIxEnW7LXscH4HfxuS5 GGFyyJYcWIebZQI5E18v v1S8JTKlSGBwRWZ1 xKD1lA6llJwqbhmhsIDy dDsgdmVydGljYWwtYWxp O909NQSgrTvwSxszTAxg PTJyLR70ML27gMNo y7T9xFS2V0PeOPUfmcys tkirnON6UOTyAPIcsQ32 tQHdALjbDq3rn0I6o115 LWYeDKMnuX10Zy2p nNtrZZRybOTIpL0wrdna x8cwtyixCrRuTSBkGQc4 YXg3TMWewTobSbUqTOG2 PkF6RBQ2kNUyyH2m iJoqqrmaiD8iNvr+TWFs ZTwvdGQ+GDLsREJ8bMwk PYknIHMqrC3vUUDpR7h6 KiIzBdA2IHyrH7Hn CTDzpwzaRs02sF8kUqHy GlF5JIxmC5VscaO4VXQt qHGoPNajECG2N90ri9M5 ITSfPQVuVEI0lRT4 yR9jjXypvurhzTZjxJam sqHncPbqXTllSZhwB957 ITEjwSpzCm09wFAwtAxy rvS7B0JmExnzxJU+ ZN64BSXqUB87yJDczYVo a9xiwKb4MoEjVADiSMW9 hYthNJwtb6RsCMOmD79r eQYdf6J8YNPygAys dDPtJhFueAB8lQ2aLYfx diclp3rqtptwLredf0ym az14vQ33D00lTImfYGLt PSIzMCUiIHZhbGln go4pbF3lPc1+PGNvbCB3 mVH4nP6iBzJsXvW8LIma P136TbIqhASjViiui7ll s7qdvAo0UtZeHEEq ihApkCjjASC4s7XkSc18 G67kSJspEVVlBSXjRACe FHKsdRysmb9niR9vJr8+ VN0gn4yfgn36rS73 dHI+WVXwMWU2wDulDAaj AVLxjJ7qRRplGoA1SQLq ZpKecN74fMRyZHlmTo1j mLiwiZfqGY3hEJLo cacgy046ZvHph9iyORBs jOXhOYszZKK0E37gu7L3 ALXwCPZqOGT0zYP4cP9v bGlnbjogbGVmdDsg hnWjlQxmOTnqDOefK850 HYEwcSziNiHwiGTyE7lb juCJWZ5kZgwhyUZ+PHRk BUS3jAcsQFdwDTTl hM8xWMOgM3v9EcCmQnL2 ACwmG6DsauP7DOZlwBIr CEAllLBUlG7voczby7at cjogIzAwMDAwMDt0 BKa7ZEYlyBzhUxKrAQR1 RvD3VMW7iXQfnX1wzSsq zitqqH5gCmn+RklOOjwv dGQ+JRZsZTO9fMfy KZwfCPDpvO2jFYNaA7k3 FgKpNvX2VGrcS2RaomU6 PWKvaVZaALJwhSTKfW8i woiju0arrbjdXnQu GPAzIQq4MTa2CKDtuSxz BfKsZWF2PxK4HQG1iRLu zJ8vxIbqfwvprW4pMcm+ TVJOOjwvdGQ+PHRk OVL0aZidZZyfHQRrrZ6m YMXwP9j3RuOtHmB5FQmp M4WsdhJ8UBZpeQCkZLFs pKDMhY4nbkonm5wg cducWmMjGYLeKJw1XDi6 TVOkeOjvCoUoSKO0LtC1 ZMT2fNKevJ8efNbhwbgg mG7xNtm+LAH7TPO5 DV12KM10H3IkFsskjWId bGU+PHRhYmxlIHdpZHRo TQurDXJtPoRqjKnqUP1i Zn1pWSBkYKGmfMjw cHNl (more content not included)... Normal [facility] Consent for Procedure/Surger yon 07-08-2022 Consent for Procedure/Surgery [id number]#1.00CD:127 Normal [facility] IntraOperative Documentson 0 07-08-2022 IntraOperative Documents [id number]#1.00CD:127 Normal [facility] Consent for Treatmenton 06-21 Consent for Treatment [id number] #1.00CD:127 [facility] Main OR Intraoperative Recor don 07-07-2022 Main OR Intraoperative Record IntraOp Document Type FTURO Summary Primary Physician: Lionel CARRINGTON MD Finalized Date/Time: 07/07/22 13:40:45 Pt. Name: MARY DIAZ/Sex: 1950 Male Med Rec #: [id number] Physician: Lionel CARRINGTON MD Financial #: [id number] Pt. 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 Surgeon Description CYSTOSCOPY Primary Procedure Yes Primary Surgeon DEVONTE NOBLE, Lionel Burgos Start 07/07/22 10:41:00 Stop 07/07/22 10:47:00 Anesthesia [...] Verified (If Participants PAULINA Rene RN, Applicable) Eulalia Luna CST, Julie A Time [...] MARY DIAZ/Sex: 1950 Male Med Rec #: [id number] Physician: Lionel CARRINGTON MD Financial #: [id number] Pt. Type: O Room/Bed: / Admit/Disch: 07/07/22 [...] No Pain Comment: na Skin Integrity Intact, [place], Warm, & Dry Vitals - EU Blood [...] Type: Local. Procedure: Local Cystoscopy. Complications: None. Risks/Benefits/Infor med Consent: Surgical risks, benefits, details of the [...] Time Signed: 07/07/22 10:51 EST [employer] ([employer])on 0 07-07-2022 UV Method of Extraction Bladder Wash Normal [facility] Comment on above: Performed By: #### 1 [id number] #### [facility] [address] [place] [address] UV Number of Jars 1 Invalid Interpretation Code [facility] Comment on above: Performed By: #### 1 [id number] #### [facility] [address] [place] [address] UV Specimen Urine Normal [facility] Comment on above: Performed By: #### 1 [id number] #### [facility] [address] [place] [address] UV Type of Service Technical Only Normal [facility] Comment on above: Performed By: #### 1 [id number] #### [facility] [address] [place] [address] Retail - Clinical Noteon Retail - Clinical Note [id number] #1.00CD:127 Normal [facility] XR KNEE RT [...] Date: 2022-06-30 17:38 Normal [facility] XR RIBS RT PA Fab 2 [...] Date: 2022-05-25 14:51 Normal [facility] XR RIBS RT PA Fab 2 XR RIBS RT PA CH Begin Addendum #1 There is minimal displacement of the rib [...] small pleural effusion Normal [facility] CT CHEST WO CONon 04-18-2022 CT [...] Date: 2022-04-18 16:17 Normal [facility] CULTURE URINEon 03-12-2022 CULTURE URINE Culture Observations: NO GROWTH. Normal [facility] Comment on above: Performed By: #### S PUTGS #### [facility] [address] [place] [address] Dr. Johnna Dixon COVID-19 Positive/NegativeOr dered By: Lionel Carrington on 02-13-2022 SARS-CoV-2 (COVID-19) N gene REX+probe Ql (Resp) Negative Negative [facility] Comment on above: Testing for SARS-CoV -2 by RT-PCR This test was developed and its performance characteristics determined by [employer] and validated at the [facility]. This test has not been FDA [...] aPTT Coag (PPP) [Time] 34.8 s 25.1-36.5 [facility] Basophils Auto (Bld) [#/Vol] Ordered By: Lionel Carrington on 02-06-2022 Basophils (Bld) [#/Vol] 0.0 10*3/uL 0.0-0.2 [facility] Basophils/100 WBC Auto (Bld) Ordered By: Lionel Carrington on 02-06-2022 Basophils/100 WBC (Bld) 0.8 % . [facility] Blood hemoglobin measurement (mass/volume)Ordered By: Lionel Carrington on 02-06-2022 Hemoglobin (Bld) [Mass/Vol] 13.2 g/dL 13.0-17.0 [facility] Blood leukocytes automated c ount (number/volume)Ordered By: Lionel Carrington on 02-06-2022 WBC (Bld) [#/Vol] 5.7 10*3/uL 4.5-11.0 [facility] Creatinine and Glomerular fi ltration rate.predicted panel (S/P/Bld)Ordered By: Lionel Carrington on 02-06-2022 Creatinine [Mass/Vol] 1.21 mg/dL 0.64-1.27 [facility] Eosinophils Auto (Bld) [#/Vo l]Ordered By: Lionel Carrington on 02-06-2022 Eosinophils (Bld) [#/Vol] 0.1 10*3/uL 0.0-0.45 [facility] Eosinophils/100 WBC Auto (Bl d)Ordered By: Lionel Carrington on 02-06-2022 Eosinophils/100 WBC (Bld) 1.7 % . [facility] Erythrocyte distribution wid th Auto (RBC) [Ratio]Ordered By: Lionel Carrington on 02-06-2022 Erythrocyte distribution width (RBC) [Ratio] 14.2 % 12.0-14.8 [facility] Estimated glomerular filtrat ion rate (GFR) non- AmericanOrdered By: Lionel Carrington on 02-06-2022 GFR/1.73 sq M.predicted among non-blacks MDRD (S/P/Bld) [Vol rate/Area] 59 mL/Min [facility] Hematocrit Auto (Bld) [Volum e fraction]Ordered By: Lionel Carrington on 02-06-2022 Hematocrit (Bld) [Volume fraction] 40.8 % 38.8-50.0 [facility] Laboratory - CoagulationOrde red By: Lionel Carrington on 02-06-2022 PT Coag (PPP) [Time] 11.0 s 9.0-12.9 [facility] - Hematology and Cell countsOrdered By: Lionle Carrington on 02-06-2022 Nucleated RBC/100 WBC (Bld) [Ratio] 0.1 % 0-0.5 [facility] Lymphocytes Auto (Bld) [#/Vo l]Ordered By: Lionel Carrington on 02-06-2022 Lymphocytes (Bld) [#/Vol] 1.6 10*3/uL 1.00-4.8 [facility] Lymphocytes/100 WBC Auto (Bl d)Ordered By: Lionel Carrington on 02-06-2022 Lymphocytes/100 WBC (Bld) 27.4 % . [facility] MCH Auto (RBC) [Entitic mass ]Ordered By: Lionel Carrington on 02-06-2022 MCH (RBC) [Entitic mass] 29.7 pg 27.5-35.2 [facility] MCHC Auto (RBC) [Mass/Vol]Or dered By: Lionel Carrington on 02-06-2022 MCHC (RBC) [Mass/Vol] 32.4 g/dL 32.5-35.6 [facility] MCV Auto (RBC) [Entitic vol] Ordered By: Lionel Carrington on 02-06-2022 MCV (RBC) [Entitic vol] 91.6 fL 83.5-101 [facility] Monocytes Auto (Bld) [#/Vol] Ordered By: Lionel Carrington on 02-06-2022 Monocytes (Bld) [#/Vol] 0.5 10*3/uL 0.0-0.8 [facility] Monocytes/100 WBC Auto (Bld) Ordered By: Lionel Carrington on 02-06-2022 Monocytes/100 WBC (Bld) 8.7 % . [facility] Neutrophils Auto (Bld) [#/Vo l]Ordered By: Lionel Carrington on 02-06-2022 Neutrophils (Bld) [#/Vol] 3.5 10*3/uL 1.8-7.7 [facility] Neutrophils/100 WBC Auto (Bl d)Ordered By: Lionel Carrington on 02-06-2022 Neutrophils/100 WBC (Bld) 61.4 % . [facility] No Panel InformationOrdered By: Lionel Carrington on 02-06-2022 Estimated GFR () > 60 mL/Min [facility] Comment on above: GFR estimated refere nce range: According to KDOQI guidelines, <60 ml/min/1.73m2 is sufficient to diagnose a patient with chronic kidney disease. Pharmacy Creatinine Clearance (Chem N/A [facility] Platelet mean volume Auto (B ld) [Entitic vol]Ordered By: Lionel Carrington on 02-06-2022 Platelet mean volume (Bld) [Entitic vol] 8.4 fL 6.6-10.1 [facility] Platelet poor plasma interna tional normalized ratio (INR) by coagulation assay (relatOrdered By: Lionel Carrington on 02-06-2022 INR Coag (PPP) [Relative time] 1.0 {INR} [facility] Comment on above: INR Therapeutic Rang [...] 02-06-2022 Platelets (Bld) [#/Vol] 248 10*3/uL 150-450 [facility] RBC Auto (Bld) [#/Vol]Ordere d By: Lionel Carrington on 02-06-2022 RBC (Bld) [#/Vol] 4.45 10*6/uL 3.90-5.60 [facility] Serum or plasma calcium eliezer urement (mass/volume)Ordered By: Lionel Carrington on 02-06-2022 Calcium [Mass/Vol] 9.7 mg/dL 8.2-10.2 [facility] Serum or plasma chloride sammy surement (moles/volume)Ordered By: Lionel Carrington on 02-06-2022 Chloride [Moles/Vol] 99 mmol/L 95-114 [facility] Serum or plasma glucose eliezer urement (mass/volume)Ordered By: Lionel Carrington on 02-06-2022 Glucose [Mass/Vol] 99 mg/dL 70-100 [facility] Comment on above: ADA recommended refe rence range Random Glucose Reference Range is dependent on time and content of last meal. Glucose of more than 200 mg/dL in a nonstressed, ambulatory subject supports the diagnosis of Diabetes Mellitus. Serum or plasma potassium me asurement (moles/volume)Ordered By: Lionel Carrington on 02-06-2022 Potassium [Moles/Vol] 4.4 mmol/L 3.5-5.1 [facility] Serum or plasma sodium measu rement (moles/volume)Ordered By: Lionel Carrington on 02-06-2022 Sodium [Moles/Vol] 135 mmol/L 136-146 [facility] Serum or plasma total carbon dioxide measurement (moles/volume)Ordered By: Lionel Carrington on 02-06-2022 CO2 [Moles/Vol] 26.2 mmol/L 22.0-30.0 [facility] Serum or plasma urea nitroge n measurement (mass/volume)Ordered By: Lionel Carrington on 02-06-2022 Urea nitrogen [Mass/Vol] 20 mg/dL 9-23 [facility] COVID-19 Positive/NegativeOr dered By: Lionel Carrington on 10-27-2021 SARS-CoV-2 (COVID-19) N gene REX+probe Ql (Resp) Negative Negative [facility] Comment on above: Testing for SARS-CoV -2 by RT-PCR This test was developed and its performance characteristics determined by [employer] ([employer]) and validated at the [facility]. This test has not been FDA [...] aPTT Coag (PPP) [Time] 36.2 s 25.1-36.5 [facility] Basophils Auto (Bld) [#/Vol] Ordered By: Lionel Carrington on 10-17-2021 Basophils (Bld) [#/Vol] 0.0 10*3/uL 0.0-0.2 [facility] Basophils/100 WBC Auto (Bld) Ordered By: Lionel Carrington on 10-17-2021 Basophils/100 WBC (Bld) 0.6 % [facility] Blood hemoglobin measurement (mass/volume)Ordered By: Lionel Carrington on 10-17-2021 Hemoglobin (Bld) [Mass/Vol] 13.6 g/dL 13.0-17.0 [facility] Blood leukocytes automated c ount (number/volume)Ordered By: Lionel Carrington on 10-17-2021 WBC (Bld) [#/Vol] 5.9 10*3/uL 4.5-11.0 [facility] Creatinine and Glomerular fi ltration rate.predicted panel (S/P/Bld)Ordered By: Lionel Carrington on 10-17-2021 Creatinine [Mass/Vol] 0.96 mg/dL 0.64-1.27 [facility] Eosinophils Auto (Bld) [#/Vo l]Ordered By: Lionel Carrington on 10-17-2021 Eosinophils (Bld) [#/Vol] 0.1 10*3/uL 0.0-0.45 [facility] Eosinophils/100 WBC Auto (Bl d)Ordered By: Lionel Carrington on 10-17-2021 Eosinophils/100 WBC (Bld) 2.0 % [facility] Erythrocyte distribution wid th Auto (RBC) [Ratio]Ordered By: Lionel Carrington on 10-17-2021 Erythrocyte distribution width (RBC) [Ratio] 14.5 % 12.0-14.8 [facility] Estimated glomerular filtrat ion rate (GFR) non- AmericanOrdered By: Lionel Carrington on 10-17-2021 GFR/1.73 sq M.predicted among non-blacks MDRD (S/P/Bld) [Vol rate/Area] > 60 mL/Min [facility] Hematocrit Auto (Bld) [Volum e fraction]Ordered By: Lionel Carrington on 10-17-2021 Hematocrit (Bld) [Volume fraction] 41.5 % 38.8-50.0 [facility] Laboratory - CoagulationOrde red By: Lionel Carrington on 10-17-2021 PT Coag (PPP) [Time] 11.0 s 9.0-12.9 [facility] - Hematology and Cell countsOrdered By: Lionel Carrington on 10-17-2021 Nucleated RBC/100 WBC (Bld) [Ratio] 0.0 % 0-0.5 [facility] Lymphocytes Auto (Bld) [#/Vo l]Ordered By: Lionel Carrington on 10-17-2021 Lymphocytes (Bld) [#/Vol] 1.6 10*3/uL 1.00-4.8 [facility] Lymphocytes/100 WBC Auto (Bl d)Ordered By: Lionel Carrington on 10-17-2021 Lymphocytes/100 WBC (Bld) 26.8 % [facility] MCH Auto (RBC) [Entitic mass ]Ordered By: Lionel Carrington on 10-17-2021 MCH (RBC) [Entitic mass] 29.3 pg 27.5-35.2 [facility] MCHC Auto (RBC) [Mass/Vol]Or dered By: Lionel Carrington on 10-17-2021 MCHC (RBC) [Mass/Vol] 32.7 g/dL 32.5-35.6 [facility] MCV Auto (RBC) [Entitic vol] Ordered By: Lionel Carrington on 10-17-2021 MCV (RBC) [Entitic vol] 89.8 fL 83.5-101 [facility] Monocytes Auto (Bld) [#/Vol] Ordered By: Lionel Carrington on 10-17-2021 Monocytes (Bld) [#/Vol] 0.6 10*3/uL 0.0-0.8 [facility] Monocytes/100 WBC Auto (Bld) Ordered By: Lionel Carrington on 10-17-2021 Monocytes/100 WBC (Bld) 10.6 % [facility] Neutrophils Auto (Bld) [#/Vo l]Ordered By: Lionel Carrington on 10-17-2021 Neutrophils (Bld) [#/Vol] 3.5 10*3/uL 1.8-7.7 [facility] Neutrophils/100 WBC Auto (Bl d)Ordered By: Lionel Carrington on 10-17-2021 Neutrophils/100 WBC (Bld) 60.0 % [facility] No Panel InformationOrdered By: Lionel Carrington on 10-17-2021 Estimated GFR () > 60 mL/Min [facility] Comment on above: GFR estimated refere nce range: According to KDOQI guidelines, <60 ml/min/1.73m2 is sufficient to diagnose a patient with chronic kidney disease. Pharmacy Creatinine Clearance (Chem N/A [facility] Platelet mean volume Auto (B ld) [Entitic vol]Ordered By: Lionel Carrington on 10-17-2021 Platelet mean volume (Bld) [Entitic vol] 8.3 fL 6.6-10.1 [facility] Platelet poor plasma interna tional normalized ratio (INR) by coagulation assay (relatOrdered By: Lionel Carrington on 10-17-2021 INR Coag (PPP) [Relative time] 1.0 {INR} [facility] Comment on above: INR Therapeutic Rang [...] 10-17-2021 Platelets (Bld) [#/Vol] 249 10*3/uL 150-450 [facility] RBC Auto (Bld) [#/Vol]Ordere d By: Lionel Carrington on 10-17-2021 RBC (Bld) [#/Vol] 4.62 10*6/uL 3.90-5.60 [facility] Serum or plasma calcium eliezer urement (mass/volume)Ordered By: Lionel Carrington on 10-17-2021 Calcium [Mass/Vol] 9.7 mg/dL 8.2-10.2 [facility] Serum or plasma chloride sammy surement (moles/volume)Ordered By: Lionel Carrington on 10-17-2021 Chloride [Moles/Vol] 101 mmol/L 95-114 [facility] Serum or plasma glucose eliezer urement (mass/volume)Ordered By: Lionel Carrington on 10-17-2021 Glucose [Mass/Vol] 87 mg/dL 70-100 [facility] Comment on above: ADA recommended refe rence range Random Glucose Reference Range is dependent on time and content of last meal. Glucose of more than 200 mg/dL in a nonstressed, ambulatory subject supports the diagnosis of Diabetes Mellitus. Serum or plasma potassium me asurement (moles/volume)Ordered By: Lionel Carrington on 10-17-2021 Potassium [Moles/Vol] 4.4 mmol/L 3.5-5.1 [facility] Serum or plasma sodium measu rement (moles/volume)Ordered By: Lionel Carrington on 10-17-2021 Sodium [Moles/Vol] 136 mmol/L 136-146 [facility] Serum or plasma total carbon dioxide measurement (moles/volume)Ordered By: Lionel Carrington on 10-17-2021 CO2 [Moles/Vol] 25.6 mmol/L 22.0-30.0 [facility] Serum or plasma urea nitroge n measurement (mass/volume)Ordered By: Lionel Carrington on 10-17-2021 Urea nitrogen [Mass/Vol] 18 mg/dL 9-23 [facility] Vital Signs Date Time Vital Sign Value Performing Clinician Facility 08-12-2023 11:10-0500 Body height 182.88 cm MD Yolande Staley Work Phone: [facility] 08-12-2023 11:10-0500 Body mass index (BMI) [Ratio] 24.3 kg/m2 MD Yolande Staley Work Phone: [facility] 08-12-2023 11:10-0500 Body weight 81.19 kg MD Yolande Staley Work Phone: [facility] 02-10-2023 14:16-0400 Blood Pressure Location Qamar SMITH [facility] 02-10-2023 14:16-0400 Diastolic blood pressure 80 mm[Hg] Qamar SMITH [facility] 02-10-2023 14:16-0400 Heart rate 70 /min Qamar SMITH [facility] 02-10-2023 14:16-0400 Respiratory rate 16 /min Qamar SMITH [facility] 02-10-2023 14:16-0400 Systolic blood pressure 124 mm[Hg] Qamar SMITH [facility] 12-03-2022 10:20-0400 Body height 182.88 cm Zoran Chavez Other [facility] Other 12-03-2022 10:20-0400 Body mass index (BMI) [Ratio] 25.49 kg/m2 Zoran Chavez Other [facility] Other 12-03-2022 10:20-0400 Body weight 85.28 kg Zoran Chavez Other [facility] Other 10-22-2022 10:20-0400 Body height 182.88 cm Zoran Chavez Other [facility] Other 10-22-2022 10:20-0400 Body mass index (BMI) [Ratio] 25.63 kg/m2 Zoran Chavez Other [facility] Other 10-22-2022 10:20-0400 Body weight 85.73 kg Zoran Chavez Other [facility] Other 10-22-2022 10:20-0400 Diastolic blood pressure 80 mm[Hg] Zoran Chavez Other [facility] Other 10-22-2022 10:20-0400 Systolic blood pressure 110 mm[Hg] Zoran Chavez Other [facility] Other 02-24-2022 10:43-0400 Blood Pressure Location Lionel CARRINGTON [facility] 02-24-2022 10:43-0400 Diastolic blood pressure 80 mm[Hg] Lionel CARRINGTON [facility] 02-24-2022 10:43-0400 Heart rate 65 /min Lionel CARRINGTON [facility] 02-24-2022 10:43-0400 Respiratory rate 16 /min Lionel CARRINGTON [facility] 02-24-2022 10:43-0400 Systolic blood pressure 140 mm[Hg] Lionel CARRINGTON [facility] 02-17-2022 15:15-0400 Diastolic blood pressure 83 mm[Hg] MD Yolande Staley Work Phone: [facility] 02-17-2022 15:15-0400 Heart rate 58 /min MD Yolande Staley Work Phone: [facility] 02-17-2022 15:15-0400 Respiratory rate 16 /min MD Yolande Staley Work Phone: [facility] 02-17-2022 15:15-0400 SaO2% (BldA) [Mass fraction] 95 % MD Yolande Staley Work Phone: [facility] 02-17-2022 15:15-0400 Systolic blood pressure 166 mm[Hg] MD Yolande Staley Work Phone: [facility] 02-17-2022 14:30-0400 Body height 182.88 cm MD Yolande Staley Work Phone: [facility] 02-17-2022 14:30-0400 Body mass index (BMI) [Ratio] 26.2 kg/m2 MD Yolande Staley Work Phone: [facility] 02-17-2022 14:30-0400 Body weight 87.7 kg MD Yolande Staley Work Phone: [facility] 02-17-2022 14:17-0400 Body temperature 97.6 [degF] MD Yolande Staley Work Phone: [facility] 02-17-2022 13:52-0400 Inhaled oxygen flow rate 10 L/min MD Yolande Staley Work Phone: [facility] 10-17-2021 11:42-0400 Body height 180.34 cm MD Yolande Staley Work Phone: [facility] 10-17-2021 11:42-0400 Body mass index (BMI) [Ratio] 27 kg/m2 MD Yolande Staley Work Phone: [facility] 10-17-2021 11:42-0400 Body temperature 98.4 [degF] MD Yolande Staley Work Phone: [facility] 10-17-2021 11:42-0400 Body weight 88 kg MD Yolande Staley Work Phone: [facility] 10-17-2021 11:42-0400 Diastolic blood pressure 90 mm[Hg] MD Yolande Staley Work Phone: [facility] 10-17-2021 11:42-0400 Heart rate 64 /min MD Yolande Staley Work Phone: [facility] 10-17-2021 11:42-0400 SaO2% (BldA) [Mass fraction] 100 % MD Yolande Staley Work Phone: [facility] 10-17-2021 11:42-0400 Systolic blood pressure 172 mm[Hg] MD Yolande Staley Work Phone: [facility] Encounters Encounter Date Encounter Type Care Provider Facility Start: 08-12-2023 End: 08-12-2023 ambulatory Esther Lowery Facility:[facility] Start: 08-12-2023 End: 08-12-2023 ambulatory MD Yolande Staley Work Phone: [facility] Work Phone: Start: 08-12-2023 End: 08-12-2023 Patient encounter procedure MD Yolande Staley Work Phone: [facility] Work Phone: Start: 08-12-2023 End: 08-12-2023 ambulatory MD Yolande Staley Work Phone: [facility] Work Phone: Start: 08-12-2023 End: 08-12-2023 Patient encounter procedure MD Yolande Staley Work Phone: [facility] Work Phone: Start: 07-26-2023 End: 07-27-2023 ambulatory Dereck Osman MD Facility:[facility] Start: 04-27-2023 End: 04-28-2023 ambulatory Lionel CARRINGTON Facility:[facility] Start: 04-27-2023 End: 04-27-2023 Patient encounter procedure Lionel CARRINGTON [facility] Start: 03-15-2023 End: 03-16-2023 ambulatory Dereck Osman MD Facility:[facility] Start: 03-10-2023 End: 03-11-2023 ambulatory Qamar SMITH Facility:[id number] Start: 02-10-2023 End: 02-11-2023 ambulatory Qamar R LUIS Facility: [facility] Start: 02-10-2023 End: 02-10-2023 Patient encounter procedure Qamar R ROBINSONL [facility] Start: 01-20-2023 End: 01-21-2023 ambulatory Lionel CARRINGTON Facility:[facility] Start: 01-14-2023 End: 01-15-2023 ambulatory Lionel CARRINGTON Facility:CD:[id number] Start: 01-05-2023 End: 01-06-2023 ambulatory Lionel CARRINGTON Facility:[facility] Start: 01-05-2023 End: 01-05-2023 Patient encounter procedure Lionel CARRINGTON [facility] Start: 01-01-2023 End: 01-01-2023 ambulatory Zoran Chavez Facility:[facility] Start: 01-01-2023 End: 01-01-2023 ambulatory MD Yolande Staley Work Phone: [facility] Work Phone: Start: 01-01-2023 End: 01-01-2023 Patient encounter procedure MD Yolande Staley Work Phone: [facility] [place] Work Phone: Start: 12-28-2022 End: 12-29-2022 ambulatory Dereck Osman MD Facility:[facility] Start: 12-14-2022 End: 12-15-2022 ambulatory Dereck Osman MD Facility:[facility] Start: 12-03-2022 End: 12-03-2022 ambulatory Zoran Chavez Other [facility] Other Start: 12-03-2022 Office outpatient visit 15 minutes Zoran Chavez [facility] Neurosurgery Start: 11-20-2022 End: 11-21-2022 ambulatory DERECK OSMAN Facility:[facility] Start: 10-28-2022 End: 10-29-[address] NELLY HERRERA Facility: Start: 10-27-2022 End: 11-18-[address] ZORAN CHAVEZ Facility:[facility] Start: 10-23-2022 End: 10-24-[address] ZORAN CHAVEZ Facility:[facility] Start: 10-22-2022 End: 10-22-2022 ambulatory Zoran Chavez Other [facility] Other Start: 10-22-2022 Office outpatient visit 15 minutes Zoran Chavez [facility] Start: 10-05-2022 End: 10-06-[address] YOLANDE STALEY . Facility: Start: 09-29-2022 End: 09-30-2022 ambulatory Lionel CARRINGTON Facility:[facility] Start: 09-24-2022 End: 09-25-[address] YOLANDE STALEY . Facility: Start: 09-21-2022 End: 09-22-[address] LIONEL CARRINGTON . Facility: Start: 09-21-2022 End: 09-22-2022 ambulatory Lionel CARRINGTON Facility:[place] Start: 09-21-2022 End: 09-21-2022 Patient encounter procedure Lionel CARRINGTON [facility] Start: 08-19-2022 End: 08-20-[address] LIONEL CARRINGTON . Facility: Start: 08-17-2022 End: 08-18-2022 ambulatory Lionel CARRINGTON Facility:[place] Start: 08-17-2022 End: 08-17-2022 Patient encounter procedure Lionel CARRINGTON [facility] Start: 08-04-2022 End: 08-05-[address] YOLANDE STALEY . Facility: Start: 07-28-2022 End: 07-29-[address] YOLANDE STALEY . Facility:[facility] Start: 07-23-2022 End: 07-23-[address] LIONEL CARRINGTON . Facility: Start: 07-20-2022 End: 07-21-2022 ambulatory Lionel CARRINGTON Facility:[facility] Start: 07-20-2022 End: 07-20-2022 Patient encounter procedure Lionel CARRINGTON [facility] Start: 07-07-2022 End: 07-08-2022 ambulatory Lionel CARRINGTON Facility:[facility] Start: 07-07-2022 End: 07-07-2022 Patient encounter procedure Lionel CARRINGTON [facility] Start: 06-30-2022 End: 07-01-[address] YOLANDE STALEY . Facility:[facility] Start: 06-04-2022 End: 06-04-[address] YOLANDE STALEY . Facility:[facility] Start: 05-25-2022 End: 05-26-[address] YOLADNE STALEY . Facility:[facility] Start: 05-18-2022 End: 05-18-2022 Patient encounter procedure Lionel CARRINGTON [facility] Start: 04-27-2022 End: 04-28-[address] YOLANDE STALEY . Facility:[facility] Start: 04-18-2022 End: 04-18-[address] FELICIA GALDAMEZ . Facility:[facility] Start: 04-15-2022 End: 04-15-2022 Patient encounter procedure Lionel CARRINGTON [facility] Start: 03-26-2022 End: 03-26-[address] LIONEL CARRINGTON . Facility:[facility] Start: 03-12-2022 End: 03-13-[address] YOLANDE STALEY . Facility:[facility] Start: 03-09-2022 End: 03-09-2022 Patient encounter procedure Lionel CARRINGTON [facility] Start: 02-27-2022 End: 02-27-2022 Lab Drop off Lionel CARRINGTON [facility] Start: 02-27-2022 End: 02-27-2022 Patient encounter procedure Lionel CARRINGTON [facility] Start: 02-24-2022 End: 02-24-2022 Patient encounter procedure Lionel CARRINGTON [facility] Start: 02-17-2022 End: 02-17-2022 Admission to same [facility] MD Yolande Staley Work Phone: [facility] Start: 02-13-2022 End: 02-13-2022 Patient encounter procedure MD Yolande Staley Work Phone: [facility] Start: 02-06-2022 End: 02-06-2022 Patient encounter procedure MD Yolande Staley Work Phone: [facility] Start: 11-11-2021 End: 11-11-2021 Patient encounter procedure Lionel CARRINGTON [facility] Start: 11-05-2021 End: 11-05-2021 Patient encounter procedure Lionel CARRINGTON [facility] Start: 10-29-2021 End: 10-29-2021 Admission to same [facility]ook MD Yolande Staley Work Phone: [facility] Start: 10-27-2021 End: 10-27-2021 Patient encounter procedure MD Yolande Staley Work Phone: [facility] Start: 10-17-2021 End: 10-17-2021 Patient encounter procedure MD Yolande Staley Work Phone: [facility] Procedures Date Procedure Procedure Detail Performing Clinician Start: 08-12-2023 X-ray of lumbar spin e, six views including bending views MD Yolande Staley Work Phone: Start: 08-12-2023 X-ray of cervical spine MD Yolande Staley Work Phone: Start: 01-01-2023 MR lumbar spine wo con MD Yolande Staley Work Phone: Start: 09-21-[address] NELLY HERRERA Comment on above: Performed By: #### P SAD #### [facility] [address] [address] [address] Johnna Dixon Start: 02-17-2022 Transurethral resect [...] Mcgowan Work Phone: Start: 10-14-2021 Cystourethroscopy wi dilation of urethral stricture Lionel CARRINGTON Start: [...] CARRINGTON Comment on above: had recently at [facility] Start: 05-21-2014 Colonoscopy Qamar DOSS Start: 06-21-2010 Complete repair of r otator cuff Lionel CARRINGTON Comment on above: right Start: 06-21-1998 Shoulder reconstruction Lionel CARRINGTON Comment on above: left possibly a scre w in there per pt Start: 06-21-1964 Appendectomy Lionel KEELY VILLANUEVARozina Arthroplasty of the ankle Jose Alfredo CARRINGTON Comment on above: 1990 Arthroscopy of knee Lionel CARRINGTON Klippel-Feil sequenc e (disorder) Lionel CARRINGTON Plan of Treatment Date Care Activity Detail Author Start: 10-04-2023 ambulatory Ambulatory Facility:[facility] Start: 08-12-2023 Patient referral [facility] Work Phone: Start: 08-12-2023 X-ray of cervical spine XR cer vical spine w flex/ext [facility] Start: 08-12-2023 X-ray of lumbar spin e, six views including bending views XR lumbar spine 6V w bending [facility] Start: 08-12-2023 XR Cervical spine Vi ews W flexion and W extension [facility] Start: 08-12-2023 XR Lumbar spine Views [facility] Start: 02-17-2022 End: 02-17-2022 [facility] Work Phone: Start: 02-17-2022 Transurethral resect ion of bladder neoplasm OR Cysto/TURBT/Bladder Biopsy/Fulg (Not Applicable) [facility] Start: 02-17-2022 End: 02-17-2022 Admission to same day surgery center Departed Surgical Day Care [facility] [place] Start: 02-13-2022 End: 02-13-2022 Patient encounter procedure Departed Clinical [facility] Sxv-Dip-Htnxeshx Testing MR Cervical spine WO and W contrast IV [facility] Patient referral [facility] Work Phone: Immunizations Immunization Date Immunization Notes Care Provider Gary francisco 04-16-2022 SARS-CoV-2 (COVID-19 ) [id number] Qamar SMITH [facility] 03-27-2022 influenza virus vacc ine, unspecified formulation Qamar NILL [facility] 05-06-2021 COVID-19 mRNA-1273 (Moderna) MD Yolande Staley Work Phone: [facility] 09-19-2020 COVID-19 mRNA-1273 (Moderna) MD Yolande Staley Work Phone: [facility] Comment on above: Result Comment: 2022: [id number] 08-22-2020 COVID-19 mRNA-1273 (Moderna) MD Yolande Staley Work Phone: [facility] Comment on above: Result Comment: 2022: [id number] 06-21-2020 SARS-CoV-2 (COVID-19 ) mRNA-1273 vaccine Lionel CARRINGTON [facility] 05-23-2020 influenza virus vacc ine, unspecified formulation Qamar NILL [facility] 04-03-2020 influenza virus vacc ine, unspecified formulation ExamifyL [facility] 05-29-2019 influenza virus vacc ine, unspecified formulation [facility]am[facility] 04-14-2019 influenza, unspecifi ed formulation [facility] 09-26-2018 tetanus and diphther ia toxoids, adsorbed, preservative free, for adult use (2 Lf of tetanus toxoid and 2 Lf of diphtheria toxoid) [facility] 10-11-2017 pneumococcal polysaccharide vaccine, 23 valent Exam[facility] 07-22-2016 pneumococcal conjuga te vaccine, 13 valent Qamar SMITH [facility] 06-29-2013 tetanus toxoid, redu mirtha diphtheria toxoid, and acellular pertussis vaccine, adsorbed Qamar SMITH [facility] 03-10-2000 Td(adult) unspecifie d formulation Qamar SMITH [facility] Payers Date Payer Category Payer Self-pay [id number] 2022 Unknown 1958 Medicare [id number] 1959 Unknown [id number] 2.16.840.1.362296.19 1951 Unknown [id number] 2.16.840.1.864423.3.579.2. 593 1951 Unknown [id number] 2.16.840.1.627694.3.579.2. 593 1951 Unknown [id number] 2.16.840.1.958437.3.579.2. 593 1951 Unknown [id number] 2.16.840.1.158083.3.579.2. 593 1951 Unknown [id number] 2.16.840.1.736207.3.579.2. 593 1951 Unknown [id number] 2.16.840.1.053721.3.579.2. 593 1951 Unknown [id number] 2.16.840.1.213742.3.579.2. 593 1951 Unknown [id number] 2.16.840.1.103700.3.579.2. 593 1951 Unknown [id number] 2.16.840.1.762153.3.579.2. 593 1951 Unknown [id number] 2.16.840.1.887080.3.579.2. 593 1951 Unknown [id number] 2.16.840.1.954708.3.579.2. 593 1951 Unknown [id number] 2.16.840.1.142329.3.579.2. 593 1951 Unknown [id number] 2.16.840.1.587520.3.579.2. 593 1951 Unknown [id number] 2.16.840.1.632265.3.579.2. 593 1951 Unknown [id number] 2.16.840.1.667419.3.579.2. 593 1951 Unknown [id number] 2.16.840.1.142759.3.579.2. 593 1951 Unknown [id number] 2.16.840.1.586163.3.579.2. 593 1951 Unknown [id number] 2.16.840.1.911534.3.579.2. 593 1951 Unknown [id number] 2.16.840.1.110796.3.579.2. 593 1951 Unknown [id number] 2.16.840.1.329240.3.579.2. 727 1951 Unknown [id number] 2.16.840.1.531189.3.579.2. 727 1951 Unknown [id number] 2.16.840.1.820732.3.579.2. 727 1951 Unknown [id number] 2.16.840.1.087942.3.579.2. 727 1951 Unknown [id number] 2.16.840.1.669711.3.579.2. 727 1951 Unknown [id number] 2.16.840.1.861067.3.579.2. 72 1951 Unknown [id number] 2.16.840.1.319691.3.579.2. 72 1951 Unknown [id number] 2.16.840.1.602607.3.579.2. 1951 Unknown [id number] 2.16.840.1.664603.3.579.2. 1951 Unknown [id number] 2.16.840.1.378013.3.579.2. 1951 Unknown [id number] 2.16.840.1.517169.3.579.2. 1951 Unknown [id number] 2.16.840.1.461838.3.579.2. 1951 Unknown [id number] 2.16.840.1.259957.3.579.2. 1951 Unknown [id number] 2.16.840.1.147663.3.579.2. 1951 Unknown [id number] 2.16.840.1.073090.3.579.2. 1951 Unknown [id number] 2.16.840.1.022941.3.579.2. 1951 Unknown [id number] 2.16.840.1.342993.3.579.2. 1951 Unknown [id number] 2.16.840.1.375075.3.579.2. 1951 Unknown [id number] 2.16.840.1.846737.3.579.2. 196 Medicare Medicare [id number] Private Health Insurance [id number] Unknown [facility] K [id number] Unknown [id number] 2.16.840.1.799001.3.579.2. 531 Unknown [id number] 2.16.840.1.497862.3.579.2. 531 Social History Date Type Detail Facility Start: 10-17-2021 End: 02-17-2022 Tobacco smoking status NHIS Ex-smoker (finding) [facility] Comment on above: pt quit smoking 10+ yrs ago Start: 1950 Sex Assigned At Male [facility] Start: 11-05-2021 Tobacco smoking status Never s moked tobacco (finding) [facility] Tobacco smoking status Never [facility] Comment on above: pt quit smoking 10+ yrs ago Sex Assigned At Male [facility] Medical Equipment Procedure Code Equipment Code Equipment Original Text Equipment Identifier Dates Transurethral resection of bladder tumor (TURBT) with cystoscopy Polymeric ureteral stent ()[id number] FDA Start: 10-29-2021 Decompression, spine, cervical, posterior approach Bone-screw internal spinal fixation system, non-sterile ()[id number] FDA Start: 04-18-2020 Decompression, spine, cervical, posterior approach Bone-screw internal spinal fixation system, non-sterile ()[id number] FDA Start: 04-18-2020 Decompression, spine, cervical, posterior approach Bone-screw internal spinal fixation system, non-sterile ()[id number] FDA Start: 04-18-2020 Decompression, spine, cervical, posterior approach Bone-screw internal spinal fixation system, non-sterile ()[id number] FDA Start: 04-18-2020 Decompression, spine, cervical, posterior approach Bone-screw internal spinal fixation system, non-sterile ([id number] FDA Start: 04-18-2020 Goals Date Patient Goal Desired Activity /State Functional Status Date Assessment Result Facility 04-27-2023 Functional Status N/A [facility] 02-10-2023 Functional Status N/A General Benavidez griffin [facility] 01-05-2023 Functional Status N/A [facility] 02-24-2022 Functional Status N/A [facility] Clinical Notes 11-04-2021 to 04-27-2023 Note Date & Type Note Facility 04-27-2023 Note [id number] [facility] 04-27-2023 Hospital Discharge instructions [...] [facility] [address], [place] [address]- Business (1) When: Unknown Comments:Office will call to schedule follow up [facility] 04-27-2023 Note Custom Cystoscopy ? Voiding [...] Time Signed: 02/10/23 15:05 EDT 01-05-2023 Note [id number]:127 [facility] 01-05-2023 Hospital Discharge instructions [...] CARRINGTON Address: [facility] [address], [place] [address]- [facility] (1) When: Unknown Comments:Office will call to schedule follow up [facility] 01-05-2023 Note Custom Cystoscopy ? Voiding [...] M46.1) Nov, Neurogenic claudication (ICD-10 - R29.818) [facility] Other 05-04-2023 Evaluation note* Encounter Date Diagnosis [...] spine October, Neurogenic claudication (ICD-10 - R29.818) [facility] Other [id number] Note [id number]:127[facility] 09-29-2022 NoteCustom Cystoscopy ? Voiding after [...] if you have a fever over 100 degrees.[facility] 09-21-2022 Hospital Discharge instructions Patient [...] if anything looks unusual. Men with a fevxym-oilr-bbnkct risk for skin cancer may want to see a ammunition specialist (restrooms or lounges maid) for an annual body check. Where to find more information National Cancer [place]: https://www.cancer.gov/about-cancer/screening Centers for Disease Control and Prevention: https://www.cdc.gov/cancer/dcpc/prevention/screening.htm [employer]: https://www.cancer.org/latest-news/5-mztoha-qwhiegyiz-bbrvz-azb-gbl.html Contact a health care provider if: You [...] 03/04/2017 Document Revised: 02/24/2019 Document Reviewed: 03/04/2017 [employer] Patient Education 2020 [employer]. Follow Up Care 09/19/2021 11:05:08 With:DEVONTE NOBLE, Lionel Burgos, URL Address: [facility] [address] , [place] [address]- When: Unknown [facility] 01-18-2023 Note [id number]:127[facility] 07-07-2022 Hospital Discharge instructions Patient Education [...] 14:04:56 With:Lionel CARRINGTON Address: [facility] [address] [place] [address]- Business (1) When: Unknown Comments:Office will call to schedule follow up [facility]01-17-2023 NoteCustom Cystoscopy ? Voiding after the [...] if anything looks unusual. Men with a acutyc-bceh-nsergx risk for skin cancer may want to see a ammunition specialist (restrooms or lounges maid) for an annual body check. Where to find more information National Cancer [place]: https://www.cancer.gov/about-cancer/screening Centers for Disease Control and Prevention: https://www.cdc.gov/cancer/dcpc/prevention/screening.htm [employer]: https://www.cancer.org/latest-news/7-edxyvy-nxisaqdcp-rkzbj-jfq-wmb.html Contact a health care provider if: You [...] 03/04/2017 Document Revised: 02/24/2019 Document Reviewed: 03/04/2017 [employer] Patient Education 2020 [employer] Follow Up Care 02/05/2022 13:48:40 With:DEVONTE NOBLE, Lionel Burgos, URL Address: [facility] [address] , [place] [address]- [phone] When: Unknown [facility] [id number] Hospital Discharge instructions Patient Education 11/11/2021 09:47:46 [...] CARRINGTON Address: [facility] [address] [place] [address] [facility] (1) When: Unknown Comments:Keep scheduled appointment [facility]05-17-2022 Hospital Discharge instructions Patient Education 11/04/2021 [...] who: Are older than age 65. Are -Turkish. Are obese. Have a family history of [...] cells. Follow these instructions at home: Take yayj-kxm-zmxkiht and prescription medicines only as told by [...] 06/07/2006 Document Revised: 05/20/2018 Document Reviewed: 02/15/2017 [employer] Patient Education 2020 [employer] Follow Up Care 10/14/2021 11:26:04 With:Lionel CARRINGTON MD, URL Address: [facility] [address], [place] [address]- When: Unknown [facility] [employer] Evaluation + Plan note Future Appointments Appointment Date:09/21/2022 09:45:00 AM Scheduled Provider:Lionel CARRINGTON MD Location:[facility] Appointment Type:URO Office Visit [facility] Evaluation + Plan note Future Appointments Appointment Date:03/09/2022 09:00:00 AM Scheduled Provider: Location:[facility] [place] Appointment Type:URO Nurse Visit Appointment Date:04/15/2022 09:00:00 AM Scheduled Provider: Location:[facility] [place] Appointment Type:URO Nurse Visit Appointment Date:09/21/2022 09:45:00 AM Scheduled Provider:Lionel CARRINGTON MD Location:[facility] [place] Appointment Type:URO Office Visit [facility] Evaluation + Plan note Future Appointments Appointment Date:03/09/2022 09:00:00 AM Scheduled Provider: Location:[facility] [place] Appointment Type:URO Nurse Visit Appointment Date:04/15/2022 09:00:00 AM Scheduled Provider: Location:[facility] [place] Appointment Type:URO Nurse Visit Appointment Date:09/21/2022 09:45:00 AM Scheduled Provider:Lionel CARRINGTON MD Location:[facility] [place] Appointment Type:URO Office Visit Diagnostic Tests Pending * [facility]rine [facility] App[facility]ments Appointment Date:04/15/2022 09:00:00 AM Scheduled Provider: Location:[facility] [place] Appointment Type:URO Nurse Visit Appointment Date:09/21/2022 09:45:00 AM Scheduled Provider:Lionel CARRINGTON MD Location:[facility] Appointment Type:URO Office Visit [facility] evaluation + Plan note Future Appointments Appointment Date:07/20/2022 10:00:00 AM Scheduled Provider: Location:[facility] Appointment Type:URO Nurse Visit Appointment Date:08/17/2022 10:00:00 AM Scheduled Provider: Location:[facility] Appointment Type:URO Nurse Visit Appointment Date:09/21/2022 09:45:00 AM Scheduled Provider:Lionel CARRINGTON MD Location:[facility] Appointment Type:URO Office Visit Diagnostic Tests Pending * UroVysion FISH ([facility]) [facility]07[facility] App[facility]ments Appointment Date:08/17/2022 10:00:00 AM Scheduled Provider: Location:[facility] Appointment Type:URO Nurse Visit Appointment Date:09/21/2022 09:45:00 AM Scheduled Provider:Lionel CARRINGTON MD Location:[facility] Appointment Type:URO Office Visit [facility] Evaluation + Plan note Future Appointments Appointment Date:09/22/2022 02:00:00 PM Scheduled Provider: Location:[facility] Appointment Type:Urology CALL PAT FT Appointment Date:09/29/2022 11:15:00 AM Scheduled Provider: Location:[facility] Appointment Type:Urology FT [facility] evaluation + Plan note Future Appointments Appointment Date:09/22/2022 02:00:00 PM Scheduled Provider: Location:[facility] Appointment Type:Urology CALL PAT FT Appointment Date:09/29/2022 11:15:00 AM Scheduled Provider: Location:[facility] Appointment Type:Urology FT Diagnostic Tests Pending * Urine Cytology ([facility]) 09/21/22 [facility] evaluation + Plan note Future Appointments Appointment Date:10/04/2023 10:15:00 AM Scheduled Provider:Lionel CARRINGTON MD Location:[facility] Appointment Type:URO Office Visit Diagnostic Tests Pending * UroVysion Fish and Urine Cyto ([facility]) [facility]05[facility]23 [facility] App[facility]ments Appointment Date:10/04/2023 10:15:00 AM Scheduled Provider:Lionel CARRINGTON MD Location:[facility] Appointment Type:URO Office Visit General Surgery [facility] Evaluation + Plan note Future Appointments Appointment Date:10/04/2023 10:15:00 AM Scheduled Provider:Lionel CARRINGTON MD Location:[facility] Appointment Type:URO Office Visit Diagnostic Tests Pending * UroVysion Fish and Urine Cyto ([facility]) [facility]27/23 [facility] information [facility] Work Phone: Evaluation note* Diagnosis Onset Date Resolution Status Spinal stenosis of cervical region with radiculopathy acute Spinal stenosis of lumbar region with radiculopathy acute [facility] Work Phone: History general Narrative - Reported* [...] KNEE SCOPE Surgical History L shoulder NAE [facility] Hospitalization History FLU X2-3 DAYS Hospitalization History see surg. hx. [facility] Other Hospital course Narrative No data available for this section [facility] Hospital Discharge instructions No data available for this section [facility] progress note No data available for this section [facility] Chief Complaint and Reason for Visit Chief Complaint Bladder Tumors, Rodrick s Hematuria Bladder Tumors, Gross Hematuria Chief Complaint Bladder Tumors, Rodrick s Hematuria Bladder Tumors, Gross Hematuria Bladder Tumors, Gross Hematuria Chief Complaint Bladder Cancer and T umor Bladder Cancer and Tumor Bladder Cancer and Tumor Chief Complaint M54.50 Chief Complaint f/u neck and back pa in M48.02 M54.12 M48.061 M54.16 Reason for Visit Spinal stenosis of c ervical region with radiculopathy Spinal stenosis of lumbar region with radiculopathy Family History No Family History Records Found Relationship Condition Age at Onset Recorded Date/T ashlyn father Diabetes mellitus Unknown Hypertension Unknown Not Specified Unknown sister Calculus of kidney Unknown Relationship Condition Age at Onset Recorded Date/T ashlyn father Diabetes mellitus Unknown Hypertension Unknown Not Specified Unknown sister Calculus of kidney Unknown father Hypertension Unknown Diabetes mellitus Unknown grandparent Unknown Advance Directives No Advanced Directives Records Found Advance Directive Response Recorded Date/ Time Advance Directives No July 2:58pm Advance Directive Response Recorded Date/ Time Advance Directives No July 1:58pm Reason for Referral Reason evaluate and treat f or neck and back pain Diagnosis 1 Cervical spondylosis (M47.812) [facility] Referring Provider First Name Zoran Referring Provider Last Name Scott Referring Provider Specialty Neurologica l Surgery Referred Organization [facility] Referred Address [address], [place],[address] Referred Provider Specialty Physical The rapist Referral Priority Routine Reason evaluate and tr eat for neck and back pain Diagnosis 1 Cervical spondylosis (M47.812) Diagnosis 2 Low back pain, unspe cified (M54.50) Referral Organization [facility] Referring Provider First Name Zoran Referring Provider Last Name Scott Referring Provider Specialty Neurologica l Surgery Referred Organization [facility] Referred Provider Raoul Soriano Referred Address [address] [facility],[place], [place],[address] Referred Provider Specialty Pain Medicin e Referral Priority Routine General Notes Meron Donnelly 023 08:08:21 AM >Received today and waiting [...] Active Zoran Chavez MD Attending Provider Active Team Status: Inactive Member Role Status Dates Yolande Staley MD Primary Care Provider Active Start: August 12, 2023 End: August 12, 2023 LIDA Santoyo Attending Provider Active Start: August 12, 2023 End: August 12, 2023 Team Status: Active Member Role Status Dates Yolande Staley MD Primary Care Provider Active Start: August 12, 2023 LIDA Santoyo Attending Provider Active Start: August 12, 2023 Goals (unrecognized section and content) Goals may [...] this section No data available for this sectionGoals may be documented in an alternate sectionGoals may be documented in an alternate section REASON FOR VISIT (unrecogniz ed section and content) PREVIOUS DPE PATIENT INCREAS ED PAINfollow up neck and back pain/pain management and PT (unrecognized sect ion and content) No Status Records FoundNo Status Records FoundNo Status Records FoundNo Status Records Found INFORMATION SOURCE (unrecogn ized section and content) DATE CREATED AUTHOR 11/27/2022 [facility] DATE CREATED AUTHOR AUTHOR'S ORGANIZ ATION 06/28/2023 [facility] DATE CREATED AUTHOR AUTHOR'S ORGANIZ ATION 07/29/2023 [facility] DATE CREATED AUTHOR AUTHOR'S ORGANIZ ATION 08/20/2023 [facility] FOR RECORDS PERTAINING TO PATIENTS WHO [...] BE BASED ON THE PRIMARY CLINICAL RECORDS. [employer] provides no warranty or guarantee of the accuracy or completeness of information in this document.
[2023-08-20 12:50] LABS: Free T3 1.69 pg/mL (2.18-3.98); Thyroid Stimulating Hormone 0.728 uIU/mL (0.358-3.740)
== END 2023-08-20 11:21 | disposition home or self-care (01) ==
LOC: LAB 11:21
PROVIDERS: PCP Family Medicine; Visit Provider Family Medicine
DX: E03.9 Hypothyroidism, unspecified (principal)
CPT/HCPCS: 36415; 84436; 84443; 84481

== ENCOUNTER 2023-09-02 08:51 | Outpatient (OUT) | payer MEDICARE, SELFPAY ==
--- OUTSIDE RECORDS SUMMARY | 2023-09-02 08:57 | XMS_ITS | CCD ---
Author Name Unknown Address [facility] [address] [place] [address] Organization [facility] Care Team Providers Care Lead Software Engineer Name Role Phone MD Yolande Staley Primary Care Provider [phone] MD Lionel Carrington Attending Provider [phone] Yolande Staley Primary Care Physician [phone] Leidy Plummer Unavailable Unavailable MD Yolande Staley Primary Care Provider [phone] MD Lionel Carrington Attending Provider Zoran Chavez [...] Unavailable MD Yolande Staley Primary Care Provider [phone] MD Zoran Chavez Attending Provider [phone] CARRINGTON, Lionel R Attending Unavailable CARRINGTON, Lionel [...] Unavailable CARRINGTON, Lionel R Attending Unavailable CARRINGTON, Ilonel R Admitting Unavailable CARRINGTON, Lionel R Referring Unavailable CARRINGTON, Lionel R Attending Unavailable CARRINGTON, Lionel R Admitting Unavailable CARRINGTON, Lionel R Referring Unavailable Gimarivelitis , Andrius Kilgore Attending Unavailable Giedraitis , Andrius Magui Attending Unavailable Giedraitis , Andrius Magui Attending Unavailable Syeda NOBLE, Andrius Vjayesh Attending Unavailable Syeda NOBLE, Andrius Magui Attending Unavailable MD Yolande Staley Primary Care Provider [phone] LIDA Lowery Attending Provider Yolande Staley Primary Care Unavailable Esther Lowery Admitting Unavailable Esther Lowery Attending Unavailable Yolande Staley Primary Care Unavailable Esther Lowery Admitting Unavailable Esther Lowery Attending Unavailable Yolande Staley Primary Care Unavailable Zoran Chavez Admitting Unavailable Zoran hCavez Attending Unavailable Allergies Allergy Classification Reported Allergen(s) Allergy Type Date of Onset Reaction(s) Facility (9 sources) Acetaminophen; 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: [acetaminophen] Drug Allergy 0 Itching, Itching agitated, Itching agitated, aggitation [facility] (20 sources) Codeine; 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: [Codeine] Drug Allergy 4 rash [facility] (9 sources) oxyCODONE; 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: [oxycodone] Drug Allergy 0 Itching, agitated, Itching, agitated, aggitation [facility] (16 sources) Acetaminophen / oxyCODONE; 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: [acetaminophen-oxyc odone] Drug Allergy aggitation [facility] James Comment on above: pt states this does not work for pt, pt is not allergic to vicodin (4 sources) cyclobenzaprine Drug Allergy 4 itching [facility] (4 sources) HYDROcodone Drug Allergy 4 anxiety [facility] (4 sources) tiZANidine Drug Allergy 4 hives [facility] (3 sources) Acetaminophen / HYDROcodone; 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: [Vicodin] Drug Allergy [facility] Repository (2 sources) Acetaminophen / oxyCODONE Drug Allergy [facility] Repository (1 source) atorvastatin Drug Allergy [facility] Repository (2 sources) tiZANidine Drug Allergy [facility] Repository (1 source) Acetaminophen / oxyCODONE; 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: [Percocet 5/325] Drug Allergy [facility] Repository (1 source) cyclobenzaprine Drug Allergy 4 [facility] Repository (1 source) HYDROcodone Drug Allergy [address] [place] [address] Repository (1 source) tiZANidine Drug Allergy [address] [place] [address] Repository Medications Current Medications Medication Drug Class(es) [...] 11:00pm Start: 09-19-2021 take 2 tablets by [facility] twice daily carvedilol 6.25 mg Tab 12.5 mg = 2 tab(s), Oral, BID, Refills(s) 0 Start Date: 09/19/21 Status: Ordered Start: 09-19-2021 carvedilol 6.2 5 mg Tab Refills(s) 0 Start Date: 09/19/21 Status: Ordered take 1 tablet by [facility] every twelve hours Carvedilol 12.5 MG [...] 07, 2019 12:00am April 19, 2020 7:04am Scrlfgcctko-Ixwrqgqcx-Qzoozw er (8 sources) Anticholinergic, Corticosteroid, beta2-Adrenergic Agonist Start: 08-07-2019 Mwfysnngeys-Yjuzlnscy-Uqyijo er (Trelegy Ellipta) 100-62.5-25 mcg Blister With [...] procedure, # 2 tab(s), Refills(s) 0, Pharmacy: [facility]/pharmacy #[id number], 170, cm, 01/20/23 10:45:00 EDT, Height/Length Dosing, 83.5, kg, 01/20/23 10:45:00 EDT, Weight Dosing Start Date: 01/20/23 Status: Ordered Start: 12-31-2022 take 1 tablet by barry th once daily Cipro 500 mg Tab 500 mg = 1 tab(s), Oral, Daily, Take 1 tablet the day before the procedure and 1 tablet after the procedure, # 6 tab(s), Refills(s) 0, Pharmacy: [facility]/pharmacy #[id number], 170, cm, 09/22/22 12:23:00 EDT, Height/Length Dosing, 78, kg, 02/24/22 10:53:00 EDT, W... Start Date: 12/31/22 Status: Ordered Start: 07-02-2022 take 1 tablet by barry th once daily Cipro 500 mg Tab 500 mg = 1 tab(s), Oral, Daily, Take 1 tablet the day before the procedure and 1 tablet after the procedure, # 6 tab(s), Refills(s) 0, Pharmacy: [facility]/pharmacy #[id number], 170, cm, 02/24/22 10:53:00 EDT, [...] procedure, # 2 tab(s), Refills(s) 0, Pharmacy: [facility]/pharmacy #[id number], 170, cm, 11/05/21 11:37:00 EDT, [...] procedure, # 2 cap(s), Refills(s) 0, Pharmacy: [facility]/pharmacy #[id number], 188, cm, 02/10/23 14:22:00 EDT, [...] August 07, 2019 12:00am October 17, 2021 11:24am losartan potassium 100 mg oral tablet [...] period., # 30 tab(s), Refills(s) 3, Pharmacy: [facility], 170, cm, 02/24/22 10:53:00 EDT, Height/Length Dosing, 78, kg, 02/24/22 10:53:00 EDT, Weight Dosing Start Date: 07/05/22 Status: Ordered Start: 09-19-2021 sildenafil 100 mg Tab 100 mg = 1 tab(s), Oral, Daily, Take 1 pill 30 minutes prior to sexual relations, # 30 tab(s), Refills(s) 3, Pharmacy: [facility], 170, cm, 09/19/21 10:16:00 EDT, [...] a surgery d one radical prostectomy at [facility] Cancer of prostate (20 sources) Personal [...] region] Episodic Other aftercare (1 source) Other salvage determiner (current) drug therapy; 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: [OTH CARE HOME CURRENT DRUG THERAPY] Onset: 3 Episodic Other [...] Name Value Interpretation Reference Range Facil ity MR cervical spine wo/w conon 08-29-2023 MR cervical spine wo/w con [facility] Main [place] [address] [place] [address] MRI Report Signed Patient: Mary Diaz MR#: [id number] : 1950 Acct:[id number] Age/Sex: 73 / M ADM Date: 08/28/23 Loc: MR Room: Type: [facility] Attending Dr: Esther HILTON Copies to: LIDA Flynn Ordering Provider: LIDA Flynn Date of Service: 08/28/23 MR/MR cervical spine wo/w con: M48.02 - Spinal stenosis, cervical region MRI cervical spine without and with intravenous contrast CLINICAL DATA: Chronic neck pain with numbness at the legs, left greater than right. No reported injury. COMPARISON: Plain films 08/12/2023 Multiecho imaging in the axial and sagittal plane was performed without contrast. There is prior fusion at the cervicothoracic junction with posterior rods and pedicle screws. There is associated susceptibility artifact. There is minor anterolisthesis of C7 on T1. No other significant displacement is noted. No acute compression fractures or marrow edema are seen. There is a normal cervicomedullary junction. The cord is within normal limits for caliber and signal throughout its imaged course. No paraspinal soft tissue abnormalities are noted. At C2-3, no disc bulge or herniation is present. There is mild asymmetric left facet disease. No stenosis is seen. At C3-4, there is no significant disc bulge or herniation. There is some facet disease, greater on the left. There is no prominent foraminal stenosis. At C4-5, there is mild disco-osteophytic bulging. There is some bilateral facet disease, greater on the left. There is slight thecal sac effacement. There is mild right and potential moderate left foraminal impingement. At C5-6, there is narrowing of the disc space. There is disco-osteophytic bulging. There is some facet disease, greater on the right. There is minor thecal sac effacement. There is mild to moderate right foraminal impingement. At C6-7, there is narrowing of the space. There is mild disco-osteophytic bulging. There is mild facet hypertrophy. Slight thecal sac effacement is visualized. There could be minor left and mild to moderate foraminal encroachment. At the cervicothoracic junction, there is minor endplate spurring, without significant thecal sac effacement. Evaluation of the neural foramen is limited by the hardware artifact. MR/MR cervical spine wo/w con IMPRESSION: CERVICOTHORACIC FUSION. DISCOVERTEBRAL DEGENERATIVE CHANGES, OUTLINED ABOVE. Impression dictated by: Lupe Campos M.D.08/29/2023 1:06 PM Dictation Location: [place] [address] Transcribed By: [facility] 08/29/23 1306 Dictated By: Lupe Campos MD 08/29/23 1254 Signed By: 08/29/23 1306 [facility] XR cervical spine LAT/FLX/EX Ton 08-12-2023 XR cervical spine LAT/FLX/EXT [facility] [place] [address] XRay Report Signed Patient: Mary Diaz MR#: [id number] : 1950 Acct:[id number] Age/Sex: 73 / M ADM Date: 08/12/23 Loc: XD Room: Type: [facility] Attending Dr: Esther BASILIOC Copies to: LIDA [...] Kenny Leahy M.D.08/12/2023 3:29 PM Dictation Location: [place] [address] Transcribed By: [facility] 08/12/23 1529 Dictated By: Kenny Leahy DO 08/12/23 1528 Signed By: 08/12/23 1529 [facility] XR lumbar spine 6V w bending on 08-12-2023 XR lumbar spine 6V w bending [facility] [place] [address] [place] [address] XRay Report Signed Patient: Mary Diaz MR#: [id number] : 1950 Acct:[id number] Age/Sex: 73 / M ADM Date: 08/12/23 Loc: X Room: Type: [facility] Attending Dr: Esther Lowery 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 Copies to: LIDA Flynn Ordering Provider: LIDA [...] Kenny Leahy M.D.08/12/2023 3:28 PM Dictation Location: [facility] Transcribed By: PWS 08/12/23 1528 Dictated By: Kenny Leahy DO 08/12/23 1526 Signed By: 08/12/23 1528 [facility] Reminderson 06-28-2023 Reminders - From: Loretta Simons To: EU - Recalls Carrington; Cc: Loretta Simons; Sent: 06/28/2023 10:52:09 EST Show up: 09/20/2023 10:52:00 EDT Subject: Cysto/6 mo Due Date/Time: 10/11/2023 10:52:00 EDT Reminder/Recall Patient is due in October 2023 for 6 month cysto/fish/cytol, PSA (bt ck) Normal [facility] UroVysion Fish and Urine Cyt o ([facility])on 05-26-2023 UVFISH & UC Revision Information Invalid Interpretation Code [facility] Comment on above: Result Comment: Jimbo ection Reason -[ To Nur, 05/26/23 - 14:52 ] Corrected report issued to include PMS/PWS. The diagnosis remains unchanged. Correction Notes - Performed By: #### 1 [id number] #### [facility] [address] [place] [address] Consent for Procedure/Surger yon 04-27-2023 Consent for Procedure/Surgery [id number] #1.00TIFF Normal [facility] Consent for Treatmenton Consent for Treatment [id number] #1.00TIFF Normal [facility] IntraOperative Documentson 1 06-27-2022 IntraOperative Documents [id number] #1.00TIFF Normal [facility] Main OR Intraoperative Recor don 04-27-2023 Main OR Intraoperative Record IntraOp Document Type FTURO Summary Primary Physician: Lionel CARRINGTON MD Finalized Date/Time: 04/27/23 11:02:57 Pt. Name: MARY DIAZ /Sex: 1950 Male Med Rec #: [id number] Physician: Lionel CARRINGTON MD Financial #: [id number] Pt. Type: O Room/Bed: / Admit/Disch: 04/27/23 10:06:44 - Institution: Case Times FTURO Entry 1 Patient Times In Room 04/27/23 10:52:00 Out Room 04/27/23 11:05:00 Procedure Times Start 04/27/23 10:56:00 Stop 04/27/23 11:00:00 Anesthesia Times Last Modified By: Edgard ZELAYA, EDITHOR, Cheryl 04/27/23 11:00:10 Case Attendance FTURO Entry 1 Entry 2 Entry 3 Case Attendee Lionel CARRINGTON MD RN, CNOR, Safia GROSS, Nanci Luna Role Performed Surgeon - Primary Detasseler - Primary Scrub - Primary Time In 04/27/23 10:52:00 04/27/23 10:52:00 04/27/23 10:52:00 Time Out 04/27/23 11:05:00 04/27/23 11:05:00 04/27/23 11:05:00 Procedure CYSTOSCOPY LOCAL(.) CYSTOSCOPY LOCAL(.) CYSTOSCOPY LOCAL(.) Comments Last Modified By: Edgard RN, CNOR, Edgard RN, CNOR, Edgard RN, EDITHOR, Cheryl 04/27/23 Cheryl 04/27/23 Cheryl 04/27/23 11:00:58 11:00:58 11:00:58 Surgical Procedures FTURO Entry 1 Procedure Description Procedure CYSTOSCOPY LOCAL Modifiers . Surgeon Description CYSTO Primary Procedure Yes Primary Surgeon Lionel CARRINGTON MD Start 04/27/23 10:56:00 Stop 04/27/23 11:00:00 Anesthesia Type Local Surgical Service Urology Wound Class 2 - Clean-Contaminated Last Modified By: PAULINA Rene RN, Ruthann 04/27/23 11:01:00 General Case Data FTURO Pre-Care Text: Classifies surgical wound, implements aseptic technique, initiates traffic control Entry 1 Case Information OR URO 1 FT Case Level None Wound Class 2 - Clean-Contaminated Specialty Urology Preop Diagnosis HISTORY OF BLADDER Postop Same As Preop No CANCER Postop Diagnosis clear bladder Outcomes Met? Yes Last Modified By: PAULINA Rene RN, Ruthann 04/27/23 10:55:56 Post-Care Text: The patient is [...] Position Verified Availability Equipment, Medication Time Out DEVONTE NOBLE, Lionel Burgos, Verified (If Participants PAULINA Rene RN, Applicable) Safia Luna CST, Nanci Baxter Time Out Complete 04/27/23 10:52:00 Allergies Reviewed? [...] Rene RN, Ruthann 04/27/23 11:02 Normal [facility] Main OR Preoperative Recordo n 04-27-2023 Main OR Preoperative Record Holding Area Document Type FTURO Summary Primary Physician: Lionel CARRINGTON MD Finalized Date/Time: 04/27/23 10:26:02 Pt. Name: EMILYMARY/Sex: 1950 Male Med Rec #: [id number] Physician: Lionel CARRINGTON MD Financial #: [id number] Pt. Type: O Room/Bed: / Admit/Disch: 04/27/23 [...] Complaints of Pain: No Skin Integrity Intact, Lydia, Warm, & Dry Vitals - EU Blood Pressure 167/96 Pulse 76 bpm Respirations 20 br/min SPO2 97 % Last Modified By: Avani Costello LPN 04/27/23 10:25:57 General Comments: Temp 36.7 Finalized By: Avani Costello LPN Document Signatures Signed By: Avani Costello LPN 04/27/23 10:26 Normal [facility] Operative Reporton 3 Operative Report Patient: MARY DIAZ Age: 73 [...] surveillance cystoscopy in 6 months.. Normal [facility] Comment on above: Result Comment: Elec tronically Signed By: Lionel CARRINGTON MD\.br\Date and Time Signed: 04/27/23 11:04 EST Outpatient Surgery Discharge Instructionon 04-27-2023 Outpatient Surgery Discharge Instruction [id number] #1.00TIFF [facility] Reminderson 04-27-2023 Reminders - From: Loretta Simons To: EU - Recalls Devonte; Cc: Loretta Simons; Sent: 03/05/2023 14:06:16 EDT Show up: 07/22/2023 14:06:00 EST Subject: Cysto/fish/cytol, Due Date/Time: 08/09/2023 14:06:00 EST Reminder/Recall Patient is due in August 2023 for 4 month cysto/fish/cytol (bt ck), ? PSA Pt will be due in October 2023 for 6 month cysto Normal [facility] UroVysion Fish and Urine Cyt o ([facility])on 04-27-2023 [facility] Method of Extraction Voided Normal [facility] Comment on above: Performed By: #### 1 [id number] #### [facility] [address] [place] [address] [facility] Number of Jars 1 Invalid Interpretation Code [facility] Comment on above: Performed By: #### 1 [id number] #### [facility] [address] [place] [address] [facility] Specimen Urine Normal [facility] Comment on above: Performed By: #### 1 [id number] #### [facility] [address] [place] [address] [facility] Type of Service Technical Only Normal [facility] Comment on above: Performed By: #### 1 [id number] #### [facility] [address] [place] [address] Outside Colonoscopyon 2022 Outside Colonoscopy [id number] #1.00CD:127 Normal [facility] Reminderson 03-16-2023 Reminders - From: Stephanie Fletcher LPN To: N - Clinical; Sent: 03/16/2023 07:57:36 EDT Show up: 02/08/2028 07:00:00 EDT Subject: colonoscopy recall Due Date/Time: 03/10/2028 07:00:00 EDT Reminder/Recall Patient due for surveillance colonoscopy 03/10/2028 due to history of colonic polyps. Normal [facility] Reminderson 03-05-2023 Reminders - From: Loretta [...] will be due in August 2023.LG new [facility] Consent for Procedure/Surger yon 02-11-2023 Consent for Procedure/Surgery [id number]# 1.00CD:127 [facility] Ambulatory Visit Summaryon 0 02-10-2023 Ambulatory Visit Summary MARY DIAZ :1950 Visit Date:02/10/2023 Ambulatory Visit Instructions Your Care Team Attending Physician - LUIS NOBLE, Qamar Burgos Primary Care Physician - Kriss NOBLE, Yolande This Is Your Medications List Contact prescribing [...] NOBLE, Lionel Burgos Where: [facility] Lab Reportson 02-03-2023 Lab Reports [id number] #1.00CD:127 Normal [facility] Physician Referralon 023 Physician Referral [id number] #1.00CD:127 [facility] UroVysion Fish and Urine Cyt o ([facility])on 02-03-2023 [facility] Revision Information Invalid Interpretation Code [facility] Comment on above: Result Comment: Jimbo ection Reason -[ To Nur, 02/03/23 - 12:32 ] Corrected report issued to update PMS/PWS. The diagnosis remains unchanged. Correction Notes - Performed By: #### 1 [id number] #### [facility] [address] [place] [address] Lab Reportson 01-29-2023 Lab Reports [id number] #1.00CD:127 Normal [facility] Operative Reporton Operative Report [id number] #1.00CD:127 [facility] Ambulatory Visit Summaryon 0 01-20-2023 Ambulatory Visit [...] Qamar SMITH MD Where: General Surgery Luis/Greg Reilly Normal [address] [place] [address] [place] [address]- \.br\ You Need to Schedule the Following Appointments\.br \ Follow Up with DEVONTE NOBLE, Lionel Burgos, URL When: \.br\ Comments:\.br\ sched cysto\.br\ Where:\.br\ [facility] [address]\.br\ [place] [address]-\.br\ [phone]\.br\ Medications\.br\ What How Much When Instructions\.br \ New ciprofloxacin (Cipro 500 mg Tab) 1 Tablets By Mouth Every day take one tab day before procedure and one tab after procedure Pickup at [facility]/pharmacy #[id number]\.br\ Unchanged sildenafil (sildenafil 100 mg Tab) 1 [...] if questions or concerns \.br\ Pharmacy Information\.br\ [facility]/pharmacy #6177: [address], [place] [phone]\.br\ Allergies\.br\ Percocet 5/325\.br\ codeine (hives/rashes)\. br\ Problems\.br\ [...] these instructions at home:\.br\ ? \.br\ Take ctii-myv-swrfnvo and prescription medicines only as told by [...] Where to find more information\.br\ ? \.br\ [place] [employer] (ACS): cancer.org\.br\ ? \.br\ National Cancer [place] (NCI): cancer.gov\.br\ Contact a health care provider [...] on the stage of your cancer.\.br\ [facility] Ambulatory Visit Summary MARY DIAZ :1950 [...] Melba Normal [address] [place] [address] [place] [address]- \.br\ You Need to Schedule the Following Appointments\.br \ Follow Up with DEVONTE NOBLE, Lionel Burgos, URL When: \.br\ Comments:\.br\ sched cysto\.br\ Where:\.br\ [facility] [address]br\ [place] [address].br\ [phone]\.br\ Medications\.br\ What How Much When Instructions\.br \ [...] these instructions at home:\.br\ ? \.br\ Take tsjd-jgh-cbooyop and prescription medicines only as told by [...] Where to find more information\.br\ ? \.br\ [place] [employer] (ACS): cancer.org\.br\ ? \.br\ National Cancer [place] (NCI): cancer.gov\.br\ Contact a health care provider [...] you by your health care pro [facility] Pathology Noteon 01-20-2023 Pathology Note [id number] #1.00CD:127 Normal [facility] Patient Educationon 01-21-20 Patient Education Oncology Bladder Cancer Bladder cancer [...] Follow these instructions at home: ? Take sosu-ngn-zatvixq and prescription medicines only as told by [...] important. Where to find more information ? [place] [employer] (ACS): cancer.org ? National Cancer [place] (NCI): cancer.gov Contact a health care provider [...] have wi (more content not included)... Normal [facility] Urology Office/Clinic Noteon 01-20-2023 Urology Office/Clinic [...] When Contact Information DEVONTE NOBLE, Lionel Burgos, [facility] [address], [place] [phone] Additional Instructions: sched cysto Patient Education Bladder Cancer I, Lilo Zhou, personally scribed for Dr. Carrington on 01/20/2023 11:37:43. . Documentation recorded by the Lilo flores, accurately reflects the services(s) I performed and [...] Arthroplasty of th (more content not included)... [facility] Comment on above: Result Comment: Elec tronically Signed By: Lionel CARRINGTON MD\.br\Date and Time Signed: 01/20/23 11:40 EDT\.br\Electronically Co-Signed By: Lilo Zhou\.br\Date and Time Co-Signed: 01/20/23 11:37 EDT Lab Reportson 01-11-2023 Lab Reports [id number] #1.00CD:127 [facility] Consent for Procedure/Surger yon 01-05-2023 Consent for Procedure/Surgery [id number]#1.00CD:127 [facility] Consent for Treatmenton 12-19 Consent for Treatment [id number] #1.00CD:127 [facility] IntraOperative Documentson 0 01-05-2023 IntraOperative Documents [id number]#1.00CD:127 [facility] Main OR Intraoperative Recor don 01-05-2023 Main OR Intraoperative Record IntraOp Document Type FTURO Summary Primary Physician: Lionel CARRINGTON MD Finalized Date/Time: 01/05/23 10:57:53 Pt. Name: MARY DIAZ/Sex: 1950 Male Med Rec #: [id number] Physician: Lionel CARRINGTON MD Financial #: [id number] Pt. Type: O Room/Bed: / Admit/Disch: 01/05/23 09:57:46 - Institution: Case Times FTURO Entry 1 Patient Times In Room 01/05/23 10:38:00 Out Room 01/05/23 10:54:00 Procedure Times Start 01/05/23 10:41:00 Stop 01/05/23 10:50:00 Anesthesia Times Last Modified By: Edgard ZELAYA, EDITHOR, Cheryl 01/05/23 10:51:01 Case Attendance FTURO Entry 1 Entry 2 Entry 3 Case Attendee DEVONTE NOBLE, Lionel Rene RN, CNOR, Eulalia GROSS, Zora Luna Role Performed Surgeon - Primary Detasseler - Primary Scrub - Primary Time In 01/05/23 10:38:00 01/05/23 10:38:00 01/05/23 10:38:00 Time Out 01/05/23 10:54:00 01/05/23 10:54:00 01/05/23 10:54:00 Procedure CYSTOSCOPY LOCAL(.) CYSTOSCOPY LOCAL(.) CYSTOSCOPY LOCAL(.) Comments Last Modified By: Edgard ZELAYA, CNOR, Edgard ZELAYA, CNOR, Edgard ZELAYA, EDITHOR, Cheryl 01/05/23 Cheryl 01/05/23 [...] Rene RN, Ruthann 01/05/23 10:57 Normal [facility] Main OR Preoperative Recordo n 01-05-2023 Main OR Preoperative Record Holding Area Document Type FTURO Summary Primary Physician: Lionel CARRINGTON MD Finalized Date/Time: 01/05/23 10:43:08 Pt. Name: MARY DIAZ Sue Verma/Sex: 1950 Male Med Rec #: [id number] Physician: Lionel CARRINGTON MD Financial #: [id number] Pt. Type: O Room/Bed: / Admit/Disch: 01/05/23 [...] Edgard ZELAYA, Cheryl GALLARDO 01/05/23 10:43 [facility] [facility] Operative Reporton 3 Operative Report Patient: [...] has developed in these areas.. Normal [facility] Comment on above: Result Comment: Elec tronically Signed By: Lionel CARRINGTON MD\.br\Date and Time Signed: 01/05/23 10:59 EDT [facility] ([facility])on 01-05-2023 [facility] Method of Extraction Bladder Wash Normal [facility] Comment on above: Performed By: #### 1 [id number] #### [facility] Laboratory [address] [place] [address] [facility] Number of Jars 1 Invalid Interpretation Code [facility] Comment on above: Performed By: #### 1 [id number] #### [facility] [address] [place] [address] [facility] Specimen Urine Normal [facility] Comment on above: Performed By: #### 1 [id number] #### [facility] [address] [place] [address] [facility] Type of Service Technical Only Normal [facility] Comment on above: Performed By: #### 1 [id number] #### [facility] [address] [place] [address] MR lumbar spine wo conon MR lumbar spine wo con [facility] Main [place] [address] [place] [address] MRI Report Signed Patient: Mary Diaz MR#: [id number] : 1950 Acct:[id number] Age/Sex: 72 / M ADM Date: 01/01/23 Loc: MR Room: Type: [facility] Attending Dr: Zoran Chavez MD Copies to: [...] Jamaica Alas M.D.01/01/2023 2:48 PM Dictation Location: [place] [address] Transcribed By: [facility] 01/01/23 1448 Dictated By: Jamaica Alas II, MD 01/01/23 1441 Signed By: 01/01/23 1448 [facility] - Clinical Noteon Retail - Clinical Note [id number] #[id number]:127 Normal [facility] XR CSPINE MIN 4 VIEWSon XR [...] by: ALLI CORTES Date: 2022-10-23 11:53 Normal [facility] XR LSPINE W_OBLS AND FLEX_EX [...] Date: 2022-10-23 13:18 Normal [facility] BNPon 10-06-2022 Natriuretic peptide B (Bld) [Mass/Vol] 844.0 pg/mL Normal <=900.0 [facility] Comment on above: Performed By: #### C VDTB #### [facility] Laboratory [address] [place] [address] Dr. Johnna Dixon CBC AUTO DIFFon 10-06-2022 BASO # 0.0 103/ul Normal 0.0-0.1 [facility] Comment on above: Performed By: #### C BC #### [facility] Laboratory [address] [place] [address] Dr. Johnna Dixon Basophils/100 WBC (Bld) 0.0 % Critically low 0.2-2.0 [facility] Comment on above: Performed By: #### C BC #### [facility] Laboratory [address] [place] [address] Dr. Johnna Dixon EO # 0.0 103/ul Normal 0.0-0.7 [facility] Comment on above: Performed By: #### C BC #### [facility] Laboratory [address] [place] [address] Dr. Johnna Dixon Eosinophils/100 WBC (Bld) 0.0 % Critically low 0.9-7.0 [facility] Comment on above: Performed By: #### C BC #### [facility] [address] [place] [address] Dr. Johnna Dixon Erythrocyte distribution width (RBC) [Ratio] 13.9 % Normal 11.0-15.0 [facility] Comment on above: Performed By: #### C BC #### [facility] [address] [place] [address] Dr. Johnna Dixon Hematocrit (Bld) [Volume fraction] 33.6 % Critically low 42.0-54.0 [facility] Comment on above: Performed By: #### C BC #### [facility] [address] [place] [address] Dr. Johnna Dixon Hemoglobin (Bld) [Mass/Vol] 11.1 g/dL Critically low 14.0-18.0 [facility] Comment on above: Performed By: #### C BC #### [facility] [address] [place] [address] Dr. Johnna Dixon IG # 0.03 10e3/ul Normal 0.00-0.03 [facility] Comment on above: Performed By: #### C BC #### [facility] [address] [place] [address] Dr. Johnna Dixon IG % 0.5 % Normal 0.0-0.5 [facility] Comment on above: Performed By: #### C BC #### [facility] [address] [place] [address] Dr. Johnna Dixon LYMPH # 0.7 103/ul Critically low 1.2-3.8 [facility] Comment on above: Performed By: #### C BC #### [facility] [address] [place] [address] Dr. Johnna Dixon Lymphocytes/100 WBC (Bld) 11.5 % Critically low 20.5-60.0 [facility] Comment on above: Performed By: #### C BC #### [facility] [address] [place] [address] Dr. Johnna Dixon MANUAL DIFF REQ NO Normal [facility] Comment on above: Performed By: #### C BC #### [facility] [address] [place] [address] Dr. Johnna Dixon MCH (RBC) [Entitic mass] 31.0 pg Normal 25.9-34.0 [facility] Comment on above: Performed By: #### C BC #### [facility] [address] [place] [address] Dr. Johnna Dixon MCHC (RBC) [Mass/Vol] 33.0 g/dL Normal 29.9-35.2 [facility] Comment on above: Performed By: #### C BC #### [facility] [address] [place] [address] Dr. Johnna Dixon MCV (RBC) [Entitic vol] 93.9 fL Normal 80.0-94.0 [facility] Comment on above: Performed By: #### C BC #### [facility] [address] [place] [address] Dr. Johnna Dixon MONO # 0.3 103/ul Normal 0.3-0.8 [facility] Comment on above: Performed By: #### C BC #### [facility] [address] [place] [address] Dr. Johnna Dixon Monocytes/100 WBC (Bld) 4.5 % Normal 1.7-12.0 [facility] Comment on above: Performed By: #### C BC #### [facility] [address] [place] [address] Dr. Johnna Dixon NEUT # 5.0 103/ul Normal 1.4-6.5 [facility] Comment on above: Performed By: #### C BC #### [facility] [address] [place] [address] Dr. Johnna Dixon Neutrophils/100 WBC (Bld) 83.5 % Critically high 43.0-75.0 [facility] Comment on above: Performed By: #### C BC #### [facility] [address] [place] [address] Dr. Johnna Dixon Platelet mean volume (Bld) [Entitic vol] 10.3 fL Normal 9.5-13.5 [facility] Comment on above: Performed By: #### C BC #### [facility] [address] [place] [address] Dr. Johnna Dixon PLT 184 103/ul Normal 150-450 [facility] Comment on above: Performed By: #### C BC #### [facility] [address] [place] [address] Dr. Johnna Dixon RBC 3.58 106/ul Critically low 4.70-6.10 [facility] Comment on above: Performed By: #### C BC #### [facility] [address] [place] [address] Dr. Johnna Dixon WBC 6.0 103/ul Normal 4.0-11.0 [facility] Comment on above: Performed By: #### C BC #### [facility] [address] [place] [address] Dr. Johnna Dixon PROF 14(COMP METB)on 023 Albumin [Mass/Vol] 2.7 g/dL Critically low 3.4-5.0 [facility] Comment on above: Performed By: #### C VDTBH #### [facility] [address] [place] [address] Dr. Johnna Dixon Albumin/Globulin [Mass ratio] 0.9 {ratio} Normal [facility] Comment on above: Performed By: #### C VDTBH #### [facility] [address] [place] [address] Dr. Johnna Dixon ALP [Catalytic activity/Vol] 32 U/L Critically low 46-116 [facility] Comment on above: Performed By: #### C VDTBH #### [facility] [address] [place] [address] Dr. Johnna Dixon ALT [Catalytic activity/Vol] 19 U/L Normal 16-63 [facility] Comment on above: Performed By: #### C VDTBH #### [facility] [address] [place] [address] Dr. Johnna Dixon Anion gap [Moles/Vol] 14.0 mmol/L Normal Th [facility] Comment on above: Performed By: #### C VDTBH #### [facility] [address] [place] [address] Dr. Johnan Dixon AST [Catalytic activity/Vol] 12 U/L Critically low 15-37 [facility] Comment on above: Performed By: #### C VDTBH #### [facility] [address] [place] [address] Dr. Johnna Dixon Bilirubin [Mass/Vol] 0.6 mg/dL Normal 0.2-1.0 [facility] Comment on above: Performed By: #### C VDTBH #### [facility] [address] [place] [address] Dr. Johnna Dixon Calcium [Mass/Vol] 8.3 mg/dL Critically low 8.5-10.1 [facility] Comment on above: Performed By: #### C VDTBH #### [facility] [address] [place] [address] Dr. Johnna Dixon Chloride [Moles/Vol] 107 mmol/L Normal 98-107 [facility] Comment on above: Performed By: #### C VDTBH #### [facility] [address] [place] [address] Dr. Johnna Dixon CO2 [Moles/Vol] 24.9 mmol/L Normal 21.0-32.0 [facility] Comment on above: Performed By: #### C VDTBH #### [facility] [address] [place] [address] Dr. Johnna Dixon Creatinine [Mass/Vol] 1.20 mg/dL Normal 0.70-1.30 [facility] Comment on above: Performed By: #### C VDTBH #### [facility] [address] [place] [address] Dr. Johnna Dixon EGFR-AF SWEDISH >60 Normal >=60 [facility] Comment on above: Performed By: #### C VDTBH #### [facility] [address] [place] [address] Dr. Johnna Dixon EGFR-NON AF SWEDISH 60 mL/min/1.73m2 Normal >=60 [facility] Comment on above: Performed By: #### C VDTBH #### [facility] [address] [place] [address] Dr. Johnna Dixon Globulin (S) [Mass/Vol] 2.9 g/dL Normal [facility] Comment on above: Performed By: #### C VDTBH #### [facility] [address] [place] [address] Dr. Johnna Dixon Glucose [Mass/Vol] 153 mg/dL Critically high 74-106 [facility] Comment on above: Performed By: #### C VDTBH #### [facility] [address] [place] [address] Dr. Johnna Dixon Potassium [Moles/Vol] 3.9 mmol/L Normal 3.5-5.1 [facility] Comment on above: Performed By: #### C VDTBH #### [facility] [address] [place] [address] Dr. Johnna Dixon Protein [Mass/Vol] 5.6 g/dL Critically low 6.4-8.2 [facility] Comment on above: Performed By: #### C VDTBH #### [facility] [address] [place] [address] Dr. Johnna Dixon Sodium [Moles/Vol] 142 mmol/L Normal 136-145 [facility] Comment on above: Performed By: #### C VDTBH #### [facility] [address] [place] [address] Dr. Johnna Dixon Urea nitrogen [Mass/Vol] 14.0 mg/dL Normal 7.0-18.0 [facility] Comment on above: Performed By: #### C VDTBH #### [facility] [address] [place] [address] Dr. Johnna Dixon Urea nitrogen/Creatinine [Mass ratio] 11.7 mg/mg Normal [facility] Comment on above: Performed By: #### C VDTBH #### [facility] [address] [place] [address] Dr. Johnna Dixon CBC AUTO DIFFon 10-05-2022 BASO # 0.0 103/ul Normal 0.0-0.1 [facility] Comment on above: Performed By: #### S PUTGS #### [facility] [address] [place] [address] Dr. Johnna Dixon Basophils/100 WBC (Bld) 0.2 % Normal 0.2-2.0 [facility] Comment on above: Performed By: #### S PUTGS #### [facility] [address] [place] [address] Dr. Johnna Dixon EO # 0.0 103/ul Normal 0.0-0.7 [facility] Comment on above: Performed By: #### S PUTGS #### [facility] [address] [place] [address] Dr. Johnna Dixon Eosinophils/100 WBC (Bld) 0.2 % Critically low 0.9-7.0 [facility] Comment on above: Performed By: #### S PUTGS #### [facility] [address] [place] [address] Dr. Johnna Dixon Erythrocyte distribution width (RBC) [Ratio] 14.1 % Normal 11.0-15.0 [facility] Comment on above: Performed By: #### S PUTGS #### [facility] [address] [place] [address] Dr. Johnna Dixon Hematocrit (Bld) [Volume fraction] 39.9 % Critically low 42.0-54.0 [facility] Comment on above: Performed By: #### S PUTGS #### [facility] [address] [place] [address] Dr. Johnna Dixon Hemoglobin (Bld) [Mass/Vol] 12.8 g/dL Critically low 14.0-18.0 [facility] Comment on above: Performed By: #### S PUTGS #### [facility] [address] [place] [address] Dr. Johnna Dixon IG # 0.01 10e3/ul Normal 0.00-0.03 [facility] Comment on above: Performed By: #### S PUTGS #### [facility] [address] [place] [address] Dr. Johnna Dixon IG % 0.2 % Normal 0.0-0.5 [facility] Comment on above: Performed By: #### S PUTGS #### [facility] [address] [place] [address] Dr. Johnna Dixon LYMPH # 0.7 103/ul Critically low 1.2-3.8 [facility] Comment on above: Performed By: #### S PUTGS #### [facility] [address] [place] [address] Dr. Johnna Dixon Lymphocytes/100 WBC (Bld) 14.3 % Critically low 20.5-60.0 [facility] Comment on above: Performed By: #### S PUTGS #### [facility] [address] [place] [address] Dr. Johnna Dixon MANUAL DIFF REQ NO Normal [facility] Comment on above: Performed By: #### S PUTGS #### [facility] [address] [place] [address] Dr. Johnna Dixon MCH (RBC) [Entitic mass] 30.7 pg Normal 25.9-34.0 [facility] Comment on above: Performed By: #### S PUTGS #### [facility] [address] [place] [address] Dr. Johnna Dixon MCHC (RBC) [Mass/Vol] 32.1 g/dL Normal 29.9-35.2 [facility] Comment on above: Performed By: #### S PUTGS #### [facility] [address] [place] [address] Dr. Johnna Dixon MCV (RBC) [Entitic vol] 95.7 fL Critically high 80.0-94.0 [facility] Comment on above: Performed By: #### S PUTGS #### [facility] [address] [place] [address] Dr. Johnna Dixon MONO # 0.6 103/ul Normal 0.3-0.8 [facility] Comment on above: Performed By: #### S PUTGS #### [facility] [address] [place] [address] [address] Johnna Dixon Monocytes/100 WBC (Bld) 12.5 % Critically high 1.7-12.0 [facility] Comment on above: Performed By: #### S PUTGS #### [facility] [address] [place] [address] [address] Johnna Dixon NEUT # 3.6 103/ul Normal 1.4-6.5 [facility] Comment on above: Performed By: #### S PUTGS #### [facility] [address] [place] [address] Dr. Johnna Dixon Neutrophils/100 WBC (Bld) 72.6 % Normal 43.0-75.0 [facility] Comment on above: Performed By: #### S PUTGS #### [facility] [address] [place] [address] Dr. Johnna Dixon Platelet mean volume (Bld) [Entitic vol] 9.5 fL Normal 9.5-13.5 [facility] Comment on above: Performed By: #### S PUTGS #### [facility] [address] [place] [address] Dr. Johnna Dixon PLT 213 103/ul Normal 150-450 [facility] Comment on above: Performed By: #### S PUTGS #### [facility] [address] [place] [address] Dr. Johnna Dixon RBC 4.17 106/ul Critically low 4.70-6.10 [facility] Comment on above: Performed By: #### S PUTGS #### [facility] [address] [place] [address] Dr. Johnna Dixon WBC 5.0 103/ul Normal 4.0-11.0 [facility] Comment on above: Performed By: #### S PUTGS #### [facility] [address] [place] [address] Dr. Johnna Dixon CULTURE BLOODon 10-05-2022 Microscopic examination of blood, culture Culture Observations: NO GROWTH AT 5 DAYS. Normal [facility] Comment on above: Performed By: #### B LDCX2 #### [facility] [address] [place] [address] Dr. Johnna Dixon Microscopic examination of blood, culture Culture Observations: NO GROWTH AT 5 DAYS. Normal [facility] Comment on above: Performed By: #### S PUTGS #### [facility] [address] [place] [address] [address] Johnna Dixon CULTURE SPUTUMon 10-05-2022 CULTURE SPUTUM Culture Observations: NORMAL RESPIRATORY JONATAN. Normal [facility] Comment on above: Performed By: #### S PUTGS #### [facility] [address] [place] [address] Dr. Johnna Dixon Covid-19 PCR (CVDTBH)on 09-19 SARS-CoV-2 (COVID-19) RNA REX+probe Ql (Unsp spec) Not detected Normal NOT DETECTED [facility] Comment on above: Result Comment: This test is not yet approved or cleared by the [place] FDA. When there are no FDA-approved or cleared tests available, and other criteria are met, FDA can make tests available under an emergency access mechanism called an Emergency Use Authorization (EUA). The EUA for this test is supported by the [place] of Health and Human Service's (HHS's) declaration [...] consistent with SARS-CoV-2. Performed By: #### C VDTBH #### [facility] [address] [place] [address] Dr. Johnna Dixon LACTATE/LACTIC ACIDon 04-17- 2023 Lactate [Moles/Vol] 1.2 mmol/L Normal 0.4-2.0 [facility] Comment on above: Performed By: #### L ACT #### [facility] [address] [place] [address] [address] Johnna Dixon Lactate [Moles/Vol] 2.4 mmol/L Critically high 0.4-2.0 [facility] Comment on above: Performed By: #### L ACT #### [facility] [address] [place] [address] [address] Johnna Dixon Lab Reportson 10-05-2022 Lab Reports [id number] #1.00CD:127 Normal [facility] PROF CHEM 8 (BAS METB)on Anion gap [Moles/Vol] 12.6 mmol/L Normal [facility] Comment on above: Performed By: #### B MP #### [facility] [address] [place] [address] Dr. Johnna Dixon Calcium [Mass/Vol] 8.9 mg/dL Normal 8.5-10.1 [facility] Comment on above: Performed By: #### B MP #### [facility] [address] [place] [address] Dr. Johnna Dixon Chloride [Moles/Vol] 106 mmol/L Normal 98-107 [facility] Comment on above: Performed By: #### B MP #### [facility] [address] [place] [address] [address] Johnna Dixon CO2 [Moles/Vol] 25.8 mmol/L Normal 21.0-32.0 [facility] Comment on above: Performed By: #### B MP #### [facility] [address] [place] [address] [address] Johnna Dixon Creatinine [Mass/Vol] 1.41 mg/dL Critically high 0.70-1.30 [facility] Comment on above: Performed By: #### B MP #### [facility] [address] [place] [address] Dr. Johnna Dixon EGFR-AF SWEDISH >60 Normal >=60 [facility] Comment on above: Performed By: #### B MP #### [facility] [address] [place] [address] [address] Johnna Dixon EGFR-NON AF SWEDISH 50 mL/min/1.73m2 Critically low >=60 [facility] Comment on above: Performed By: #### B MP #### [facility] [address] [place] [address] [address] Johnna Dixon Glucose [Mass/Vol] 111 mg/dL Critically high 74-106 [facility] Comment on above: Performed By: #### B MP #### [facility] [address] [place] [address] [address] Johnna Dixon Potassium [Moles/Vol] 3.4 mmol/L Critically low 3.5-5.1 [facility] Comment on above: Performed By: #### B MP #### [facility] [address] [place] [address] [address] Johnna Dixon Sodium [Moles/Vol] 141 mmol/L Normal 136-145 [facility] Comment on above: Performed By: #### B MP #### [facility] [address] [place] [address] [address] Johnna Dixon Urea nitrogen [Mass/Vol] 17.0 mg/dL Normal 7.0-18.0 [facility] Comment on above: Performed By: #### B MP #### [facility] [address] [address] [address] Johnna Dixon Urea nitrogen/Creatinine [Mass ratio] 12.1 mg/mg Normal [facility] Comment on above: Performed By: #### B MP #### [facility] [address] [place] [address] [address] Johnna Dixon SPUTUM GRAM STAINon 10-06-19 COMMENTS [facility] Comment on above: Performed By: #### S PUTGS #### [facility] [address] [address] [address] Johnna Dixon DIPHTHEROIDS [facility] Comment on above: Performed By: #### S PUTGS #### [facility] [address] [place] [address] Dr. Johnna Dixon EPITHELIALS <25 Normal [facility] Comment on above: Performed By: #### S PUTGS #### [facility] [address] [place] [address] Dr. Johnna Dixon FUNGAL ELEMENTS Normal [facility] Comment on above: Performed By: #### S PUTGS #### [facility] [address] [place] [address] Dr. Johnna Dixon GRAM NEG BACILLI FEW Normal [facility] Comment on above: Performed By: #### S PUTGS #### [facility] [address] [place] [address] Dr. Johnna MILLS NEG DIPPLOCOCCI Normal [facility] Comment on above: Performed By: #### S PUTGS #### [facility] [address] [place] [address] Dr. Johnna Dixon GRAM POS BACILLI Normal [facility] Comment on above: Performed By: #### S PUTGS #### [facility] [address] [place] [address] Dr. Johnna Dixon GRAM POSITIVE COCCI FEW Normal [facility] Comment on above: Performed By: #### S PUTGS #### [facility] [address] [place] [address] Dr. Johnna Dixon WBC (Bld) [#/Vol] 10*3/uL Normal [facility] Comment on above: Performed By: #### S PUTGS #### [facility] [address] [place] [address] Dr. Johnna Dixon SYMPTOMATIC COVID-19 ANTIGEN on 10-05-2022 EUA Statement SEE BELOW Normal [facility] Comment on above: Result Comment: [...] sooner. Performed By: #### C VDAGS #### [facility] [address] [place], [place] [address] Dr. Johnna Dixon SARS-CoV-2 (COVID-19) RNA REX+probe Ql (Unsp spec) Negative Normal NEGATIVE [facility] Comment on above: Performed By: #### C VDAGS #### [facility] [address] [place], [place] [address] Dr. Johnna Dixon XR CHEST 1 Von [...] Date: 2022-10-05 11:44 Normal [facility] Coding Summary.on 10-01-2022 Coding Summary. CD:[id number] Ww+PGhlYWQ+CP7FETAiH 58cwTWogH7hX2MZFOdWM ywgQVBQTElOSyIgbmFtZ D8ljNMlGLJt IC8+XU4qJMIfGgzwiENp f7E3xDK5A78axv4yVAkd yFV1SQCaEzIgitqjw9fb cCg3JUbxZnxuVnWu ACYpuH68KSI6vT34Tj85 hUVjcGLgy4qjkLg7RbRf AOMmXUR5lBgzURfdt9Kx VRLgG35wyAGiu2N4 IGNvbGxhcHNlOyBlbXB0 nF8dHTiwbjyyf6kjpbyj Tyc1gm06qYRyc4A7iBP9 D1WbxcE9KDLbsFIt PsulpXEUxX1cbqwxa8hw igyaMjXdXITpIMd9XJd9 TMDxsBqxVsGyVI96APQ4 OVPkccYcY8CxQWLq yHfsJxO5u3Z5Si8SE5UX YywiS8GGPKJSJDqehQN+ IQ92xn71H0EzBmmkYwl0 VUAfAPQ4gPL6oI0w PORfNDdqy3H5kDD5Z0Vv pgVhkb9nf2jvVRRzJXfm C92iiNFed6H0VHWxxJB3 UXNhhEueNyMudY09 Oyc+CHRoeDwnn3LzLxyi w9kzh0isgXd7DbykIZJd qfKygPyoPUN5u7BfJo1c QJPwwRR0tKW5kC7f AtSxMrE8TOvkF663ZpGw iYTqQqijD04hC3VyxUL+ TITzOkz9FZJspLuiEI9k K6DwFNEdgvlmnKTz lVmkSE3mNYGyfmspYUXr cA5kXRStG1x4FfKvJbX5 KEivF4WbLSJygmunMc17 aO2rJdClXfP6RBnk O5QqroI7OVWrjCCiBPcl LLJ7Y78ut3D8KJCcYMNo EOY4oUN7wM9ivZpuitje bGVmdDsgdmVydGlj VRbnOMbdM763LTTfvHtq PkNvZGluZyBEYXRlOiAg MDQvMTMvMjAyMzwvdGQ+ GBTuGHR6bScoCLBi zESwUGfpSk0vnZihbMap QP1pEEUskxalXRXurS8w ZGEffINaqOvnXN3lZPSp micxz898MdHeWJX1 LCXycVXiN3PtuX0rXrQj PZKzRESbP5FzmMEbAMlc V079BPmiHpP9GWOufpPu B8HhJUEdnPmgHvP5 s3P7Ae8Rg7BebbayO5Fq eLIkPgJmKxpgRDq6X0Hd PjwvdHI+NH95ATMgCN90 VPo5AWC9tXaxUNsr NUDuV3SyxZ7jMuJwHHGt ZGRkOyc+PHRhYmxlIHdp ZHRoPScxMDAlJyBzdHls OS4lHs1fQSJwQODe vLxrnDDuVhYsa6yzINQo GMwyUS1esOluH5SikUH5 SLBrg5r2Gj56X17pV9Sj dXA+ULHbvAY7uTJ0 nJ8pMsNfScU7UHuxG771 LqSqaPQnRvwon4viw7ke hJn0NyA7QFBzciKxaMnv QTP6o7GrEz35V44p IHdpZHRoPSIxNSUiIHZh qZugeo5hiW4jWo3+PGNv bBJ4jFM2xM0gYdWsOvZ5 PZmlL615YyDpcTPb Dyxdl9yis6qjlAm3PfAa DSPkniMwcRshLTG6k3Zs Lu93V5BirNdvp6VcHal9 ny31rGZrc9E1wXF3 H2DrLILovfmeiRLpjOlt HD5xSDNeorabHVAwvS0n BPAbU8u4VyYhUpM5FCzh C4OgtjC3HRUsxTLr VVKctRWSvG5giqmjk1xz laqaIzLnJEUiEPj2KLs5 AMYizWoqWyYbLUI0QdS9 ZAS6rJMvmE1viPgl rlpkjY8hVax+LWU8gSNw cKPGAX6hJkkrpQF+PHRk PEU8bYcgOCezURNtuW0w ARVaS9u4VxGsJkI6 TEkyA7DaeoX7KXVepGOu QBZrzLEMnZ8jeigag3tn vilmZxBbLUQnURs1EZe7 LWFsaWduOiBsZWZ0 RyI0TLX8uITqvQ1dpHmn amfwrB3jWyl+QmlydGgg LMY3FKt6V8GiPou5RQWw wFclRX2wpBVpPYkz Rs2hhRfruSutZD5kHQKw vdyfe564XdSae7wgQVTg wZIvEBwoAYF4L78uq4R9 SCUiCOClDSB5hTB5 qZ5vzDattwcoyCObkJdj ynZtvLaeWImpCQqyK927 YJGokTfrUyOnSAu1T1Bx Juo2LVNhiDckHZ9h bWTeCBfeRu7mbKofaTbs ZO0oNOFsrwmny404DwBx z7atNYEvmLDaVAsfUWS6 I91rk1A6EJAnPLZh HCS2wMB0gH0vwDldwlep bGVmdDsgdmVydGljYWwt TGypV389NWPezKxxZlIp bFj6K8IsLrl0RISh hMbyVH2bdVNhVPklXg7y vPkmqEhiML7gAPHnlqvc n362HzVdx3grXDDenVLa GFlePNL9X88su4F9 UKIpIBEsXPP6kVM9oO9e bGlnbjogbGVmdDsgdmVy rCxgRGdtMLloF350NKZd cDsnPlBhdGllbnQg SUgwVNs1V5YkKdtlqCW+ ZX94CTFxYY84uLWgbJKs s6nfkEv9MaJeRRTmWQC3 aGylXTnxa2WhNBCx K01qbZRlp2F4UMIshBud bNSdTbFzfOY4jW8mVJwj tdyxp9wpxqyvEhyoj7yt iy63xE20D43dQAwl ZHRoPSIzMCUiIHZhbGln fr4akN4eZl3+PGNvbCB3 rDO0fT4yDWTxYaV4ZTke K490KuQxhOToEoji u1day0zoiWr5DcZ0GYHl mhQgmSbsITZ6m0FcOl19 J63jDKjnIVCdWILzDLWf JDDeyHpggz4eoU2s Ii8+FWHujMW2sSI1pC6e PeZxHhX3YYocP569GjBw uOJpAnydJ11rO8QazDQ+ BXKtFds4QUMusWrt XH6tcQCwJEknOk5yCHH4 GdHeGcAvDJecU4XjCHGl nokliblwaXW9NFTbEGZp xV13Bx0ttZytMOUb rRHGxK4kentmk5ecrcku QgYcDDHzMBq9ZJo9SDFt wVlsVwZnLJQ9CkJ4MJK3 vTDkjE2ovKmsqjtx kB6vV9BfPKMhxubiYe92 xR2xScWpCdX9OLbuBrx+ K9gMQviKDTTuHHgCQIJI OV30I6JeJst0MEKz cTriJG1evYDtFGsyDq1q yXgztHdjQZ3vHDGjhnhv VUZfnD1sFGKayGJteJex JW9hKECdclyps496 UqPrTLW1GYRrwOMnT7Xg kB7fPuVrVEXeGYIlP1Fi sZKrWZueN328EXihFfF5 EDBzjvRoM7AaSISf lDxjKtU1a4N6Yo4yLE7b WN6hUSAbSA11FB35gHVb p7B1gIF5F1WkPHFlmber leudmRT3XRRmCHNy eD78fHVtYLqeDf3lz1Z1 s650VBSeQZShuD47Nm8s xNjlIHGreHXQeC4qlavu l4gfddhvCpEfPNOj FHk1JLt4DKZtmIcgEcAb LOH4QgN9OIU5dOZimF1x pJhftndwpN5bChj+NzEg OPBgkxY8J5VpMxy7 MCXueYptAF0ssYCaFUiz Ru2thTvvxRxiVO5wDGPv brhaZPNcvO3lQWLjbAKe vRjnSK4jXMAqtivj c383GvVwTIE0GMLrlVYg S5JzwC6uJuAbMDBzWBRu W2NrjZElKTofT991OYbg FwG2IKFkbsRsX1Ra ULZrlKpuGiC2l6D4Xc5M ADppIF42WH42bKKnl3Z8 mPJ4B5ObHRQkouufsnkk aJT0CWKtJWTgrJ95 sVTiLUxuUb0tr3Q2n612 DUFiINPvoG76Kh4wzKng JSSltEHZkO4jrivqw0ew cjogIzAwMDAwMDt0 RWa3VHWwxFnvHaElYPX5 OrS0MPW9vGEfxB0gwNqh cguabK6nMuy+P3H5iKC1 aWVudDwvdGQ+PC90 ux73R3RqFjpwWvg2XUHy COP8eSU3tF5gWSTlVXrc t9F9hGV5L5FysdYnbm9w u2qqLMAvAOybK25o iKRds2D8EUYmpYW1QVUj nCbgAoXxuA86Ioc+PGNv iIzij2GdUknne0sfc5nf vCa0DgUpNCPagsCs gViwKVO8e1ClVt82B47x IHdpZHRoPSIzMCUiIHZh zYsibj5eeH4gUk7+PGNv dDQ3tPM4cQ0iIoMf JzF5VGdoT278PfQpsXGh Xexmh7gan8jizNg5RkOk TMTlylIlxOapAMF2b8Ey Eb12W2RffDunu6Uw Avi5le94nEMne0V4zEF9 X2LuWYAwesfcgDYtrFfi YU2hLKOkyrjvLWKcaT8d VBQpM3l1ZeCoJsB2 FKzqH8IiabB5ORAjqYCj BPVknYUUcU5gewsyk7nq fsvsAoXcHWYmXGx0LFz2 LWFsaWduOiBsZWZ0 EiN9HVW7uHUjpM5ypJbo qninfQ9yRni+MDl2i1xx aCMuKG3zdMG8VO92IZ39 oJObp1A8hDV2Q9Qp SDRzyzhhjpxiqXF7XVBc VIUdsT66Qo7bmHifLp4a UBGzNCO1YSAcsSPjF9Bt hK0fZeRtHYCtWOEp W6CvbLPoYJaqE785MJsw GrT9JLCgipLqZ9WgTMYe gKixMzE3l0V5Qn6QGY62 LB07AQ86oLHbq4K6 jKF1J9KqCGEovbikbnqz gQL4DEXeZFCtkV18Tv6k mQdiOh9uJHCmPDH4MSQh cYVyC5AydV5gLmGt HMDwZRZeZ9QyyMSdZBkt N628VGvlQxG4OVYidiKk C0HmMBNpmHzrQgH8p0E9 Vb3QGa53OY80KV19 sNZea8O8cNN9N9XxOEQv xhhyxkibfPP1DTOeZPPt zT66Oj8hpUtcKb6eHURa SXX2VTBrlMXuY5Gn rI3iOdGsNLQdOTQjL7Tv pMGgOFdpK545DZlcMvB4 OFFtfuPaE7OqKMKlhRak BkH7p9A2Mt1IOWrw mxl6N5TsHkzkjNM+PC90 KITuAO44yOSppGCoo3qi vEx0UyZnYXUrEEC7pGxp OIpjf1JqAMZtF91t cIFkf7R3 (more content not included)... Normal [facility] Consent for Procedure/Surger yon 09-29-2022 Consent for Procedure/Surgery [id number]# 1.00CD:127 Normal [facility] Consent for Treatmenton 09-19 Consent for Treatment [id number] #1.00CD:127 Normal [facility] IntraOperative Documentson 0 09-29-2022 IntraOperative Documents [id number]# 1.00CD:127 [facility] Main OR Intraoperative Recor don 09-29-2022 Main OR Intraoperative Record IntraOp Document Type FTURO Summary Primary Physician: Lionel CARRINGTON MD Finalized Date/Time: 09/29/22 10:53:58 Pt. Name: EMILY MARY Verma/Sex: 1950 Male Med Rec #: [id number] Physician: Lionel CARRINGTON MD Financial #: [id number] Pt. Type: O Room/Bed: / Admit/Disch: 09/29/22 10:00:50 - Institution: Case Times FTURO Entry 1 Patient Times In Room 09/29/22 10:48:00 Out Room 09/29/22 11:00:00 Procedure Times Start 09/29/22 10:50:00 Stop 09/29/22 10:55:00 Anesthesia Times Last Modified By: Edgard ZELAYA, PAULINA, Cheryl 09/29/22 10:53:40 Case Attendance FTURO Entry 1 Entry 2 Entry 3 Case Attendee Lionel CARRINGTON MD RN, CNOR, Safia GROSS, Nanci Luna Role Performed Surgeon - Primary Detasseler - Primary Scrub - Primary Time In 09/29/22 10:48:00 09/29/22 10:48:00 09/29/22 10:48:00 Time Out 09/29/22 11:00:00 09/29/22 11:00:00 09/29/22 11:00:00 Procedure CYSTOSCOPY LOCAL(.) CYSTOSCOPY LOCAL(.) CYSTOSCOPY LOCAL(.) Comments Last Modified By: Edgard RN, CNOR, Edgard RN, CNOR, Edgard RN, EDITHOR, Cheryl 09/29/22 Cheryl 09/29/22 Cheryl 09/29/22 [...] Modified By: PAULINA Rene RN, Ruthann 09/29/22 10:53:27 Post-Care Text: The patient is [...] Rene RN, Ruthann 09/29/22 10:53 Normal [facility] Main OR Preoperative Recordo n 09-29-2022 Main OR Preoperative Record Holding Area Document Type FTURO Summary Primary Physician: Lionel CARRINGTON MD Finalized Date/Time: 09/29/22 10:52:30 Pt. Name: EMILYMARY./Sex: 1950 Male Med Rec #: [id number] Physician: Lionel CARRINGTON MD Financial #: [id number] Pt. Type: O Room/Bed: / Admit/Disch: 09/29/22 [...] No Pain Comment: na Skin Integrity Intact, Lydia, Warm, & Dry Vitals - EU Blood Pressure 148/82 Pulse 53 bpm Respirations 16 br/min SPO2 96 % RN Reviewed Yes Last Modified By: PAULINA Rene RN, Ruthann 09/29/22 10:52:28 General Comments: temp:36.5 Finalized By: PAULINA Rene RN, Ruthann Document Signatures Signed By: William KAMARANIram 09/29/22 10:28 PAULINA Rene RN, Ruthann 09/29/22 10:52 Normal [facility] Operative Reporton Operative Report Patient: AMRY DIAZ Age: 72 years Sex: Male : [...] antibiotic coverage, Follow up arranged. Normal [facility] Comment on above: Result Comment: Elec tronically Signed By: Lionel CARRINGTON MD\.br\Date and Time Signed: 09/29/22 10:57 EDT Urine Cytology ([facility])on 0 09-28-2022 Urine Cytology Diagnosis Info Invalid Interpretation Code [facility] Comment on above: Result Comment: A:Ur ine,Urine:Voided Interpretation - MicroScopic Description - Adequacy - Gross Description Site ID:A color Yellow fixative Alcohol Specimen designated Urine received in alcohol preservative and labeled with the patient?s name, consists of 40ml clear yellow fluid. Electronically signed by : on: 09/28/2022 09:14:07 Performed By: #### 1 [id number] ####[facility] [id number] [place] [address] US SINGLE QUAD RT UPPERon US SINGLE [...] Date: 2022-09-24 09:46 Normal [facility] AMYLASEon 09-21-2022 Amylase [Catalytic activity/Vol] 78 U/L Normal 25-115 [facility] Comment on above: Performed By: #### C HANSATBH #### [facility] [address] [place] [address] Dr. Johnna Dixon CBC AUTO DIFFon 09-21-2022 BASO # 0.0 103/ul Normal 0.0-0.1 [facility] Comment on above: Performed By: #### C HANSATBH #### [facility] [address] [place] [address] Dr. Johnna Dixon Basophils/100 WBC (Bld) 0.5 % Normal 0.2-2.0 [facility] Comment on above: Performed By: #### C HANSATBH #### [facility] [address] [place] [address] Dr. Johnna Dixon EO # 0.1 103/ul Normal 0.0-0.7 [facility] Comment on above: Performed By: #### C VDTBH #### [facility] [address] [place] [address] Dr. Jhonna Dixon Eosinophils/100 WBC (Bld) 1.9 % Normal 0.9-7.0 [facility] Comment on above: Performed By: #### C VDTBH #### [facility] [address] [place] [address] Dr. Johnna Dixon Erythrocyte distribution width (RBC) [Ratio] 14.5 % Normal 11.0-15.0 [facility] Comment on above: Performed By: #### C VDTBH #### [facility] [address] [place] [address] Dr. Johnna Dixon Hematocrit (Bld) [Volume fraction] 39.1 % Critically low 42.0-54.0 [facility] Comment on above: Performed By: #### C VDTBH #### [facility] [address] [place] [address] Dr. Johnna Dixon Hemoglobin (Bld) [Mass/Vol] 12.8 g/dL Critically low 14.0-18.0 [facility] Comment on above: Performed By: #### C VDTBH #### [facility] [address] [place] [address] Dr. Johnna Dixon IG # 0.05 10e3/ul Critically high 0.00-0.03 [facility] Comment on above: Performed By: #### C VDTBH #### [facility] [address] [place] [address] Dr. Johnna Dixon IG % 0.7 % Critically high 0.0-0.5 [facility] Comment on above: Performed By: #### C VDTBH #### [facility] [address] [place] [address] Dr. Johnna Dixon LYMPH # 2.0 103/ul Normal 1.2-3.8 [facility] Comment on above: Performed By: #### C VDTBH #### [facility] [address] [place] [address] Dr. Johnna Dixon Lymphocytes/100 WBC (Bld) 27.4 % Normal 20.5-60.0 [facility] Comment on above: Performed By: #### C VDTBH #### [facility] [address] [place] [address] Dr. Johnna Dixon MANUAL DIFF REQ NO Normal [facility] Comment on above: Performed By: #### C VDTBH #### [facility] [address] [place] [address] Dr. Johnna Dixon MCH (RBC) [Entitic mass] 31.3 pg Normal 25.9-34.0 [facility] Comment on above: Performed By: #### C VDTBH #### [facility] [address] [place] [address] Dr. Johnna Dixon MCHC (RBC) [Mass/Vol] 32.7 g/dL Normal 29.9-35.2 [facility] Comment on above: Performed By: #### C VDTBH #### [facility] [address] [place] [address] Dr. Johnna Dixon MCV (RBC) [Entitic vol] 95.6 fL Critically high 80.0-94.0 [facility] Comment on above: Performed By: #### C VDTBH #### [facility] [address] [place] [address] Dr. Johnna Dixon MONO # 0.5 103/ul Normal 0.3-0.8 [facility] Comment on above: Performed By: #### C VDTBH #### [facility] [address] [place] [address] Dr. Johnna Dixon Monocytes/100 WBC (Bld) 6.9 % Normal 1.7-12.0 [facility] Comment on above: Performed By: #### C VDTBH #### [facility] [address] [place] [address] Dr. Johnna Dixon NEUT # 4.7 103/ul Normal 1.4-6.5 [facility] Comment on above: Performed By: #### C VDTBH #### [facility] [address] [place] [address] Dr. Johnna Dixon Neutrophils/100 WBC (Bld) 62.6 % Normal 43.0-75.0 [facility] Comment on above: Performed By: #### C VDTBH #### [facility] [address] [place] [address] Dr. Johnna Dixon Platelet mean volume (Bld) [Entitic vol] 9.3 fL Critically low 9.5-13.5 [facility] Comment on above: Performed By: #### C VDTBH #### [facility] [address] [place] [address] Dr. Johnna Dixon PLT 235 103/ul Normal 150-450 [facility] Comment on above: Performed By: #### C VDTBH #### [facility] [address] [place] [address] Dr. Johnna Dixon RBC 4.09 106/ul Critically low 4.70-6.10 [facility] Comment on above: Performed By: #### C VDTBH #### [facility] [address] [place] [address] Dr. Johnna Dixon WBC 7.4 103/ul Normal 4.0-11.0 [facility] Comment on above: Performed By: #### C VDTBH #### [facility] [address] [place] [address] Dr. Johnna Dixon LIPASEon 09-21-2022 Lipase [Catalytic activity/Vol] 114.0 U/L Normal 73.0-393.0 [facility] Comment on above: Performed By: #### C VDAGS #### [facility] [address] [place] [address] Dr. Johnna Dixon LIVER PROFILEon 09-21-2022 Albumin [Mass/Vol] 3.9 g/dL Normal 3.4-5.0 [facility] Comment on above: Performed By: #### C VDTBH #### [facility] [address] [place] [address] Dr. Johnna Dixon Albumin/Globulin [Mass ratio] 1.6 {ratio} Normal [facility] Comment on above: Performed By: #### C VDTBH #### [facility] [address] [place] [address] Dr. Johnna Dixon ALP [Catalytic activity/Vol] 59 U/L Normal 46-116 [facility] Comment on above: Performed By: #### C VDTBH #### [facility] [address] [place] [address] Dr. Johnna Dixon ALT [Catalytic activity/Vol] 23 U/L Normal 16-63 [facility] Comment on above: Performed By: #### C VDTBH #### [facility] [address] [place] [address] Dr. Johnna Dixon AST [Catalytic activity/Vol] 8 U/L Critically low 15-37 [facility] Comment on above: Performed By: #### C VDTBH #### [facility] [address] [place] [address] Dr. Johnna Dixon BILI, CONJUGATED 0.1 mg/dL Normal 0.0-0.2 [facility] Comment on above: Performed By: #### C VDTBH #### [facility] [address] [place] [address] Dr. Johnna Dixon Bilirubin [Mass/Vol] 0.3 mg/dL Normal 0.2-1.0 [facility] Comment on above: Performed By: #### C VDTBH #### [facility] [address] [place] [address] Dr. Johnna Dixon Globulin (S) [Mass/Vol] 2.5 g/dL Normal [facility] Comment on above: Performed By: #### C VDTBH #### [facility] [address] [place] [address] Dr. Johnna Dixon Protein [Mass/Vol] 6.4 g/dL Normal 6.4-8.2 [facility] Comment on above: Performed By: #### C VDTBH #### [facility] [address] [place] [address] Dr. Johnna Dixon PROF CHEM 8 (BAS METB)on Anion gap [Moles/Vol] 13.4 mmol/L Normal [facility] Comment on above: Performed By: #### C VDTBH #### [facility] [address] [place] [address] Dr. Johnna Dixon Calcium [Mass/Vol] 8.9 mg/dL Normal 8.5-10.1 [facility] Comment on above: Performed By: #### C VDTBH #### [facility] [address] [place] [address] Dr. Johnna Dixon Chloride [Moles/Vol] 106 mmol/L Normal 98-107 [facility] Comment on above: Performed By: #### C VDTBH #### [facility] [address] [place] [address] Dr. Johnna Dixon CO2 [Moles/Vol] 25.6 mmol/L Normal 21.0-32.0 [facility] Comment on above: Performed By: #### C VDTBH #### [facility] [address] [place] [address] Dr. Johnna Dixon Creatinine [Mass/Vol] 1.21 mg/dL Normal 0.70-1.30 [facility] Comment on above: Performed By: #### C VDTBH #### [facility] [address] [place] [address] Dr. Johnna Dixon EGFR-AF SWEDISH >60 Normal >=60 [facility] Comment on above: Performed By: #### C VDTBH #### [facility] [address] [place] [address] Dr. Johnna Dixon EGFR-NON AF SWEDISH 59 mL/min/1.73m2 Critically low >=60 [facility] Comment on above: Performed By: #### C VDTBH #### [facility] [address] [place] [address] Dr. Johnna Dixon Glucose [Mass/Vol] 115 mg/dL Critically high 74-106 [facility] Comment on above: Performed By: #### C VDTBH #### [facility] [address] [place] [address] Dr. Johnna Dixon Potassium [Moles/Vol] 4.0 mmol/L Normal 3.5-5.1 [facility] Comment on above: Performed By: #### C VDTBH #### [facility] [address] [address] [address] Johnna Dixon Sodium [Moles/Vol] 141 mmol/L Normal 136-145 [facility] Comment on above: Performed By: #### C VDTBH #### [facility] [address] [address] [address] Johnna Dixon Urea nitrogen [Mass/Vol] 19.0 mg/dL Critically high 7.0-18.0 [facility] Comment on above: Performed By: #### C VDTBH #### [facility] [address] [address] [address] Johnna Dixon Urea nitrogen/Creatinine [Mass ratio] 15.7 mg/mg Normal [facility] Comment on above: Performed By: #### C VDTBH #### [facility] [address] [address] [address] Johnna Dixon Patient Educationon 09-22-19 Patient [...] if anything looks unusual. Men with a pjbfyd-vmyn-exkzfj risk for skin cancer may want to see a bark skinner (administrative representative) for an annual body check. Where to find more information ? [employer] [place]: https://www.cancer.g ov/about-cancer/scre ening ? Centers for Disease Control and Prevention: https://www.cdc.gov/ cancer/dcpc/preventi on/screening.htm ? [employer]: https://www.cancer.o rg/latest-news/4-can eql-jfespjcgp-uhdgv- for-men.html Contact a health care (more content not included)... Normal [facility] Urine Cytology ([facility])on 0 09-21-2022 Method of Extraction Voided Normal [facility] Comment on above: Performed By: #### 1 [id number] ####[facility] [id number] [id number] Number of Jars 1 Invalid Interpretation Code [facility] Comment on above: Performed By: #### 1 [id number] ####[facility] [id number] [place] [address] Specimen Urine Normal [facility] Comment on above: Performed By: #### 1 [id number] ####[facility] [id number] [place] [address] Type of Service Technical Only Normal [facility] Comment on above: Performed By: #### 1 [id number] ####[facility] [id number] [id number] Ambulatory Visit Summaryon 0 08-17-2022 Ambulatory Visit [...] NOBLE, Lionel Burgos Where: [facility] Normal [facility] CREATININEon 08-04-2022 Creatinine [Mass/Vol] 1.31 mg/dL Critically high 0.70-1.30 [facility] Comment on above: Performed By: #### C JANIS #### [facility] [address] [place] [address] Dr. Johnna Dixon EGFR-AF SWEDISH >60 Normal >=60 [facility] Comment on above: Performed By: #### C JANIS #### [facility] [address] [address] [address] Johnna Dixon EGFR-NON AF SWEDISH 54 mL/min/1.73m2 Critically low >=60 [facility] Comment on above: Performed By: #### C JANIS #### [facility] [address] [address] [address] Johnna Dixon CTA NECK WO W [...] by: ALLI CORTES Date: 2022-08-04 14:04 Normal [facility] US CAROTID ART BILon 023 [...] >70 >225 >4.0 Electronically authenticated by: ALLI Moore: 2022-07-28 12:00 Normal [facility] Ambulatory Visit Summaryon 0 07-20-2022 Ambulatory Visit Summary MARY DIAZ :1950 Visit Date:07/20/2022 Ambulatory Visit Instructions Your Diagnosis History of bladder cancer Tests Performed Urnls Dip Stick Auto w/o Microscopy POC 49752 Your Care Team Attending Physician - Lionel [...] [facility] Normal [address] [place] [address]- \.br\ Medications\.br\ What How Much When Instructions\.br [...] Urnls Dip Stick Auto w/o Microscopy POC 05915 (07/20/2022)\.br \ POC Test Comments - UA prior to Mitomycin tx\.br\ Bilirubin Urine Dipstick - Negative\.br\ Blood Urine Dipstick - Negative\.br\ Glucose Urine Dipstick - Negative\.br\ Ketones Urine Dipstick - Negative\.br\ Leukocytes Urine Dipstick - Negative\.br\ Nitrite Urine Dipstick - Negative\.br\ Protein Urine Dipstick - Negative\.br\ Specific [place] Urine Dipstick - 1.020\.br\ Urine Appearance Urine [...] Acid reflux\.br\ Cancer of prostate\.br\ \.br\ [facility] Consent for Procedure/Surger yon 07-15-2022 Consent for Procedure/Surgery [id number] #1.00CD:127 Normal [facility] Consent for Procedure/Surgery 170.. [id number] #1.00CD:127 Normal [facility] FISH ([facility])on 0 07-15-2022 [facility] FISH Diagnosis Info Invalid Interpretation Code [facility] Comment on above: Result Comment: A:Ur [...] on: 07/15/2022 15:42:11 Performed By: #### 1 [id number] #### [facility] [address] [place] [id number] Coding Summary.on 07-08-2022 Coding Summary. CD:[id number] Gh0bWw+PGhlYWQ+PE1FV IWuP86gbZAngN1OP8wLV G2EIUPAJYDNOE7PXN3tg QO1OCmqA5UlipZs CnwjnEMxEI84FEk2PFG3 eRyaWIiljL3khJTiY1e9 EgQvGF60nS20CKiaELWl LrU3JgZdpcizkMTi F6dfXsLfqQWvTzw+PHRh YmxlIHdpZHRoPScxMDAl AaDncSqeUE6rYx7hPFWb LWNvbGxhcHNlOiBj m9adUJOzEVujVQ8iyRws Y3UuaRH3ZDWsh8c5In02 dHI+HHCaVRX8wFtcLWme s863BgRnk2zzAUZ1 sXZbMNcwMRP8N95kk4J9 AHWcVUAuYSR1hGQ5pB2l nEatzvwaX4EsfKEaQrF6 UEG3cROnyB9xgXck xlozsC5aSdl+Y32LPA4D BFTHJQ9EFij9U5TiRjyp dHI+WX93PQCmTC21eVBv cCYpe1hxvQz9JiWa BJLfVHY8hWjsSSuag9Hi GSYcV65xxDJqd9Z7OKVr kYaeaORvLfFphHM5hN7u LNhrmmdab8xriwuo Yyxug4ldra25bM29A26y PEirDXIbJHT8WDCbYSDl lMfbex7faG8nKy4+IDxj c9tte2zkiEd9LlQt DSLfbeFwoUngJRQ2d2Re Rb63G6SckKkqg4KnMxd8 ni57lEHqk9G1vFY1HFeu YMFrbS9tHExySfC6 SRIjVsTloO54aEGbTWhv Cp8zrXspfApsRP3hWZRm tqcfSRWwmX3nLRPdvWKg hVahRT8vDPPodeof u546UzOsPHR5LSXonMAq N4VleL3dWbHvBFPsYQKd J9TmxYWiJPfwN846ABje NzM1SPMcbmCfZ7Sr CWKyhDraJeF5r8V9St5G a1SejsfgSTZ5IXmePQTl JiJ9GmZgVjK9H8UcLfe9 JIEzgSdeEX8dY1Qf QIEldiieoxvgcYT7XSKw JFMvzY92jILsJBtjFh9j l1J6d641TVYiBABkvS25 Gg6amTlmHPMnzTTL bD1vkpfbm1rdrybfUsCs SJCfQMl7SFc7HIQlnBfq BvGsXMJ9MnS3RQS5xTYu kW9wvPywtqlphA0v Oyc+N61kqZ7tJKJ7LVA0 otozWGPxzlYaPI72YG03 B5VrXxkggHLqrSF+PGRp xjDwwPgrLJ8gTuLf w5zuy5MoACauC5XkTPFi RUroIez2HJPmNVB4jNL3 hQ4lGYVbPWlob9H3aJM4 M5AoqcXsmh0ox4gc MARfMBaqW79xgGMvd1X1 AXIweHA2QEXxxFcwRxDe jC26Qfu+MVIkpGmlv8Qa Pwpsm2zlf1zpmPg5 IjMwJSIgdmFsaWduPSJ0 o3SdQn94F40tNJziAVMe CCRbEKVwUTEqpNyogf6p kD1sAo7+PGNvbCB3 yTZ4yX3qUXUxTgL8JIkj A607PgOdlNYvIwbnh7lr f5ajqAu6LgBvWBZwxzFd sHzkVZD8s0EfMi03 S00xWNdwTYOqPBYpFPSy RVVvdMhwnq6eoY0xWw5+ EJ0va9oguy17kQ65sJL+ PAUmGIL6zTkfLFzf YTJraR1mQDrlVeR7YUAc MlJtfG00cOVtLGjyOk9n yUbucXgpRG8nMOBjskub c502GpBqb8siHQQl nIDbMQktBGQ1J13wi3N4 HNBeDIXoYZH7kPG7sM9l bGlnbjogbGVmdDsgdmVy xNpoWOppUWimM607 IHRvcDsnPlBhdGllbnQg JzZqCLq1I6WhHvc8JNCl kYifFL2rtERvFNtpYr8s fSdtiKakCC1wSUQe abuuj380QrIto0soJLTr iKNuCLbeWZJ2A22tl1D4 TQDqQMLyYAP3hSW2hW6b bGlnbjogbGVmdDsg wkKtdPymZHhhPVmtT743 IHRvcDsnPkJpcnRoIERh iSI7TX83OV59hZZzv5R3 tIG9O3UcKBMitzfp mqijfPR0MWVhPAAgwG06 Tq8laPptKa8fUNEnDHR3 OQYsxOPnU8BvbE2zPkLx JOQpFBKlA6QfkLRn BFguQ091PPkjBwZ9KSJy kyZxW6HyQKIxjKtcLmM8 m1W1Vf0JL5D5KO07VA80 mESmv1Q9gHC6F7Rt UDHsekxklmnwlAE3IKVm KTZdfF38Dp5yeIcsXc8a KMBqJZE2DBYcpDRdU8Dt kP9xFrVuAYBzSOQp V1UvyADvULkvT470VTef TgH9RQIxkgRrP0EfGPKn yFomWlP3e4D6Ld9SVJa3 UF50YE31rHWke3L1 sAT7J1HlZYPbpxlbmhnq pVA5DCChALBhwH45Md7j iXteJd1hRDYqHXS2ZXNg qFBaB5LakK4jVnWy RJIoPDDdQ1XzsITjMAmf F293NSgfAiH2SFEpjgVv X4XkGUXunWdnGgG1c7O4 Vg4SQKRjUI16IJP0 qMP2QT57GH01C9FwAzfm dGFibGU+PHRhYmxlIHdp ZHRoPScxMDAlJyBzdHls LF7aOo4pHAAlGPFf rRjrkSJaAfBvn4jlHOUt ROeuVP7sdJyuX5OpvEH4 UZUtn1o4Nn73Y25oD6Lk dXA+ZBJdjWK2lMU9 dX0tXyNkMsL4WVkzW780 GlGorZKlWdhtn2bcd6dp xLy0DkD0SMKmqpJnxVmp YAY2r1EhTi27V58k IHdpZHRoPSIxNSUiIHZh cSmvgw7cpO7sXe7+PGNv lAZ8oBW5lS4wPkYdYmQ0 YEriD275AoDavLYp Lvuoj4maw5qezOb6HaHk QKOfxkCcqZaiWEV9d8Sa Vp20P4FzlQxbq4CqQln3 tx94vPUxw0C6bAJ1 E6NkZZWbqmtwnDYlkKlj KG6kWFXkeaafDTWccN5s TVOuS8d7BvNkIdD2OFcv K6FiszK6FABwkZJg JEooAQD9A55wy6O8SWGs YBLhBHK9nRY4aU8jfVhd bjogbGVmdDsgdmVydGlj QDzmELkeH731NPNt kBrcLDUltJ7qMGUusBTf tXsnOQ4oHDKxqvbyAwfA TL8KZEXRHYCEGJ3YUeWL AA36XI89dOJii3F0 xXL4R3QfLILpgkapnobq dLU2FCXnEONsfH61eFVl AVoiYj5td2K7a195GOVu TGQjeK25Gt8mdIgk DYFtsQJKcH1njwuyy2xv zaksPxKjJPAdWEy4SDc3 JFQmqZfiLtKkUDB3EvR1 PKF3gOFewU6azHci hsdrsW0cCoi+MDgvMTUv ODg5UKssiHQ+PHRkIHN0 qOwxPFyzMJPcbQ6oWGAa Q6m0EeSvWoQ4AZth P4SlBZEgphqzBm81gQ6s TeIoUhI1DMgiW8AvczO5 ATDhpKTlRRozLKG7O40j u9Y6QGHpWHOfTAK1 hBB6kM1ebWfahqsljXEb dDsgdmVydGljYWwtYWxp W711TSOccLtwEbifZHxg GZQkEM99IW61bAWy f9M3dOD1B5KeRTBvcrxr dqxozXJ4IOQxACBtlB39 aOUkKGalFw6yd2O1h274 OFLqOHTsmD95Ij5k zKqdGGJefAUGeK6sgxgf b9shpxkiEcAeNWCwTZp3 LJr4YQJpvYpxGgAdJJC0 HiV1SOT6qOEbeA9b mHrbeudqsO2rUlb+TWFs ZTwvdGQ+YTScFEU2pTqs MSjxKRNbeD1jSKKpA4h4 VqQkZfD7BKmpL9Xm APDctbpaRg29fS0rAgHk ToE5XLueF5FpyyT1WJUb fOXqEGpiPLQ0Q86wd6C4 HYKaTXBxOTV4vVL8 rH0iiVyynpuudWSmvIcv zbSoaSuqGKbvGDxyC185 KYGujOsfJk91zRYhbRkk ruG2C9SoUwphlUT+ TJ48WBDoHA80aMVpjPMx n3gejLn4LsFcKMItCGK0 eBscXTsiw0BwIOPkJ97y lDIxn8B3IVJszPfi yCKyCrVcnTP5kG6nSOyv oefbn3zmqntpFkgce7wp yr23wY59Q96cJQroTVCk PSIzMCUiIHZhbGln nf7zaZ4pCz5+PGNvbCB3 nIK8mH5jSuTeEkW4GUlb E437HrUvcTEuSjkfe7ef n6yswJa1SpIzOEXn uyYcxMylEEZ9k1GnVp45 M67oEWelPXRbYGPeHSWq EMQceMjomg2toC5tGw9+ RT9sn3lise34lC42 dHI+JQJhASO6oLkuSTim JIYirK1hARbaUdM9AOAy DwSqsD97iZBqBHlzVh9n wBpgkWozFD2hGKJv lcpzr863ShNmh8qkHURq oNZqAArbGJM9O47jx0R0 NLPvAQCwRQX1vNY1hI4l bGlnbjogbGVmdDsg woAkuDozSOtiNIovL591 TJCbsQjjCoEjnZNlE3za hzOXET2eAeyhoTQ+PHRk RVJ0vGviAVddIRKk lS5uIMWfH5l0FyTpGhT2 OHyzL0VltjC7EHMhsWPq TSBoqBKYqD7hdzqlc8nr cjogIzAwMDAwMDt0 TTy8FCArjAjbQwMdJKV7 JfQ7KGB9zRPkdI2htIpk dfhzfK9yUdv+RklOOjwv dGQ+DCHxKYI0iRax WNdkMIHzlZ0bJBObL8s8 DmFsXtJ2LYxcD3EvzrZ2 AGAyeYNhTCQuhMNEdP3b haskx9kyvsdwKkZq RNReNSo1TBo7UPMzrMfa SxNbXOW8IrA1KNY2gADx zN2lgGgdnunmqF4kEjs+ TVJOOjwvdGQ+PHRk NCJ9oIfcISkdICTsqK5v ONPcE5h1VpDaLnR3WCvb U5RcnrL7XPMjtYFfKKHa pFWZcB9xlbsoy0ko oaesEsTcTKScQHu8YTg8 YKAzzNvvRfXdFCG8WcH3 ANA8eCYhiD3unOpahfib bK9cGmv+NJG8EZN8 NL01UW23Y9PxUeiaqCYu bGU+PHRhYmxlIHdpZHRo GElwJFQaUdIetLnpET9j Ht0uRKFiXKImqIig cHNl (more content not included)... Normal [facility] Consent for Procedure/Surger yon 07-08-2022 Consent for Procedure/Surgery [id number]#1.00CD:127 [facility] IntraOperative Documentson 0 07-08-2022 IntraOperative Documents [id number]#1.00CD:127 [facility] Consent for Treatmenton 06-21 Consent for Treatment [id number] #1.00CD:127 [facility] Main OR Intraoperative Recor don 07-07-2022 Main OR Intraoperative Record IntraOp Document Type FTURO Summary Primary Physician: Lionel CARRINGTON MD Finalized Date/Time: 07/07/22 13:40:45 Pt. Name: EMILY MARY Verma/Sex: 1950 Male Med Rec #: [id number] Physician: Lionel CARRINGTON MD Financial #: [id number] Pt. Type: O Room/Bed: / Admit/Disch: 07/07/22 10:08:13 - Institution: Case Times FTURO Entry 1 Patient Times In Room 07/07/22 10:38:00 Out Room 07/07/22 10:52:00 Procedure Times Start 07/07/22 10:41:00 Stop 07/07/22 10:47:00 Anesthesia Times Last Modified By: Edgard ZELAYA, EDITHOR, Cheryl 07/07/22 10:47:02 Case Attendance FTURO Entry 1 Entry 2 Entry 3 Case Attendee Lionel CARRINGTON MD RN, CNOR, Eulalia GROSS, Zora Luna Role Performed Surgeon - Primary Detasseler - Primary Scrub - Primary Time In [...] Procedure Yes Primary Surgeon Lionel CARRINGTON MD 07/07/22 10:41:00 Stop 07/07/22 10:47:00 Anesthesia Type [...] Modified By: PAULINA Rene RN, Ruthann 07/07/22 10:44:16 Post-Care Text: The patient is [...] Position Verified Availability Equipment, Medication Time Out DEVONTE NOBLE, Lionel Burgos, Verified (If Participants Edgard ZELAYA, EDITHOR, Applicable) Eulalia Luna CST, Zora Baxter Time [...] Rene RN, Ruthann 07/07/22 13:40 Normal [facility] Main OR Preoperative Recordo n 07-07-2022 Main OR Preoperative Record Holding Area Document Type FTURO Summary Primary Physician: Lionel CARRINGTON MD Finalized Date/Time: 07/07/22 13:40:51 Pt. Name: EMILYMARY D.O.B./Sex: 1950 Male Med Rec #: [id number] Physician: Lionel CARRINGTON MD Financial #: [id number] Pt. Type: O Room/Bed: / Admit/Disch: 07/07/22 [...] No Pain Comment: na Skin Integrity Intact, Lydia, Warm, & Dry Vitals - EU Blood Pressure 146/76 Pulse 61 bpm Respirations 18 br/min SPO2 98 % Additional None RN Reviewed Yes Specimens Collected Last Modified By: PAULINA Rene RN, Ruthann 07/07/22 10:39:47 General Comments: tempp:[email or web address] Finalized By: PAULINA Rene RN, Ruthann Document Signatures Signed By: William GONZALEZIram 07/07/22 10:20 PAULINA Rene RN, Ruthann 07/07/22 10:39 PAULINA Rene RN, Ruthann 07/07/22 13:40 [facility] Operative Reporton Operative Report Patient: MARY DIAZ [...] a repeat cystoscopy in September. Normal [facility] Comment on above: Result Comment: Elec tronically Signed By: Lionel CARRINGTON MD\.br\Date and Time Signed: 07/07/22 10:51 EST [facility] FISH ([facility])on 0 07-07-2022 UV Method of Extraction Bladder Wash [facility] Comment on above: Performed By: #### 1 [id number] #### [facility] [address] [place] [address] UV Number of Jars 1 Invalid Interpretation Code [facility] Comment on above: Performed By: #### 1 [id number] #### [facility] [address] [place] [address] UV Specimen Urine Normal [facility] Comment on above: Performed By: #### 1 [id number] #### [facility] [address] [place] [address] UV Type of Service Technical Only Normal [facility] Comment on above: Performed By: #### 1 [id number] #### [facility] [address] [place] [address] Retail - Clinical Noteon Retail - Clinical Note [id number] #1.00CD:127 Normal [facility] XR KNEE RT 4V or >on [...] by: DEBORAH ZARAGOZA Date: 2022-06-30 17:38 Normal [facility] XR RIBS RT PA Fab 2 [...] by: SOCORRO SERRANO Date: 2022-05-25 14:51 Normal [facility] XR RIBS RT PA Fab 2 [...] small pleural effusion Normal [facility] CT CHEST WO CONon 04-18-2022 [...] of interstitial inflammatory change, progressive compared to 2020, acute pulmonary infection less likely, however correlate clinically. Electronically authenticated by: SOCORRO BANSAL Date: 2022-04-18 16:17 Normal [facility] CULTURE URINEon 03-12-2022 CULTURE URINE Culture Observations: NO GROWTH. Normal [facility] Comment on above: Performed By: #### S PUTGS #### [facility] [address] [address] [address] Johnna Dixon COVID-19 Positive/NegativeOr dered By: Lionel Carrington on 02-13-2022 SARS-CoV-2 (COVID-19) N gene REX+probe Ql (Resp) Negative Negative [facility] Comment on above: Testing for SARS-CoV -2 by RT-PCR This test was developed and its performance characteristics determined by [employer] ([employer]) and validated at the [facility]. This test has not been FDA [...] aPTT Coag (PPP) [Time] 34.8 s 25.1-36.5 [facility] Basophils Auto (Bld) [#/Vol] Ordered By: Lionel Carrington on 02-06-2022 Basophils (Bld) [#/Vol] 0.0 10*3/uL 0.0-0.2 [facility] Basophils/100 WBC Auto (Bld) Ordered By: Lionel Carrington on 02-06-2022 Basophils/100 WBC (Bld) 0.8 % . [facility] Blood hemoglobin measurement (mass/volume)Ordered By: Lionel Carrington on 02-06-2022 Hemoglobin (Bld) [Mass/Vol] 13.2 g/dL 13.0-17.0 [facility] Blood leukocytes automated c ount (number/volume)Ordered By: Lionel Carrington on 02-06-2022 WBC (Bld) [#/Vol] 5.7 10*3/uL 4.5-11.0 [facility] Creatinine and Glomerular fi ltration rate.predicted panel (S/P/Bld)Ordered By: Lionel Carrington on 02-06-2022 Creatinine [Mass/Vol] 1.21 mg/dL 0.64-1.27 [facility] Eosinophils Auto (Bld) [#/Vo l]Ordered By: Lionel Carrington on 02-06-2022 Eosinophils (Bld) [#/Vol] 0.1 10*3/uL 0.0-0.45 [facility] Eosinophils/100 WBC Auto (Bl d)Ordered By: Lionel Carrington on 02-06-2022 Eosinophils/100 WBC (Bld) 1.7 % . [facility] Erythrocyte distribution wid th Auto (RBC) [Ratio]Ordered By: Lionel Carrington on 02-06-2022 Erythrocyte distribution width (RBC) [Ratio] 14.2 % 12.0-14.8 [facility] Estimated glomerular filtrat ion rate (GFR) non- AmericanOrdered By: Lionel Carrington on 02-06-2022 GFR/1.73 sq M.predicted among non-blacks MDRD (S/P/Bld) [Vol rate/Area] 59 mL/Min [facility] Hematocrit Auto (Bld) [Volum e fraction]Ordered By: Lionel Carrington on 02-06-2022 Hematocrit (Bld) [Volume fraction] 40.8 % 38.8-50.0 [facility] Laboratory - CoagulationOrde red By: Lionel Carrington on 02-06-2022 PT Coag (PPP) [Time] 11.0 s 9.0-12.9 [facility] - Hematology and Cell countsOrdered By: Lionel Carrington on 02-06-2022 Nucleated RBC/100 WBC (Bld) [Ratio] 0.1 % 0-0.5 [facility] Lymphocytes Auto (Bld) [#/Vo l]Ordered By: Lionel Carrington on 02-06-2022 Lymphocytes (Bld) [#/Vol] 1.6 10*3/uL 1.00-4.8 [facility] Lymphocytes/100 WBC Auto (Bl d)Ordered By: Lionel Carrington on 02-06-2022 Lymphocytes/100 WBC (Bld) 27.4 % . [facility] MCH Auto (RBC) [Entitic mass ]Ordered By: Lionel Carrington on 02-06-2022 MCH (RBC) [Entitic mass] 29.7 pg 27.5-35.2 [facility] MCHC Auto (RBC) [Mass/Vol]Or dered By: Lionel Carrington on 02-06-2022 MCHC (RBC) [Mass/Vol] 32.4 g/dL 32.5-35.6 [facility] MCV Auto (RBC) [Entitic vol] Ordered By: Lionel Carrington on 02-06-2022 MCV (RBC) [Entitic vol] 91.6 fL 83.5-101 [facility] Monocytes Auto (Bld) [#/Vol] Ordered By: Lionel Carrington on 02-06-2022 Monocytes (Bld) [#/Vol] 0.5 10*3/uL 0.0-0.8 [facility] Monocytes/100 WBC Auto (Bld) Ordered By: Lionel Carrington on 02-06-2022 Monocytes/100 WBC (Bld) 8.7 % . [facility] Neutrophils Auto (Bld) [#/Vo l]Ordered By: Lionel Carrington on 02-06-2022 Neutrophils (Bld) [#/Vol] 3.5 10*3/uL 1.8-7.7 [facility] Neutrophils/100 WBC Auto (Bl d)Ordered By: Lionel Carrington on 02-06-2022 Neutrophils/100 WBC (Bld) 61.4 % . [facility] No Panel InformationOrdered By: Lionel Carrington on 02-06-2022 Estimated GFR () > 60 mL/Min [facility] Comment on above: GFR estimated refere nce range: According to KDOQI guidelines, <60 ml/min/1.73m2 is sufficient to diagnose a patient with chronic kidney disease. Pharmacy Creatinine Clearance (Chem N/A [facility] Platelet mean volume Auto (B ld) [Entitic vol]Ordered By: Lionel Carrington on 02-06-2022 Platelet mean volume (Bld) [Entitic vol] 8.4 fL 6.6-10.1 [facility] Platelet poor plasma interna tional normalized ratio (INR) by coagulation assay (relatOrdered By: Lionel Carrington on 02-06-2022 INR Coag (PPP) [Relative time] 1.0 {INR} [facility] Comment on above: INR Therapeutic Rang [...] 02-06-2022 Platelets (Bld) [#/Vol] 248 10*3/uL 150-450 [facility] RBC Auto (Bld) [#/Vol]Ordere d By: Lionel Carrington on 02-06-2022 RBC (Bld) [#/Vol] 4.45 10*6/uL 3.90-5.60 [facility] Serum or plasma calcium eliezer urement (mass/volume)Ordered By: Lionel Carrington on 02-06-2022 Calcium [Mass/Vol] 9.7 mg/dL 8.2-10.2 [facility] Serum or plasma chloride sammy surement (moles/volume)Ordered By: Lionel Carrington on 02-06-2022 Chloride [Moles/Vol] 99 mmol/L 95-114 [facility] Serum or plasma glucose eliezer urement (mass/volume)Ordered By: Lionel Carrington on 02-06-2022 Glucose [Mass/Vol] 99 mg/dL 70-100 [facility] Comment on above: ADA recommended refe rence range Random Glucose Reference Range is dependent on time and content of last meal. Glucose of more than 200 mg/dL in a nonstressed, ambulatory subject supports the diagnosis of Diabetes Mellitus. Serum or plasma potassium me asurement (moles/volume)Ordered By: Lionel Carrington on 02-06-2022 Potassium [Moles/Vol] 4.4 mmol/L 3.5-5.1 [facility] Serum or plasma sodium measu rement (moles/volume)Ordered By: Lionel Carrington on 02-06-2022 Sodium [Moles/Vol] 135 mmol/L 136-146 [facility] Serum or plasma total carbon dioxide measurement (moles/volume)Ordered By: Lionel Carrington on 02-06-2022 CO2 [Moles/Vol] 26.2 mmol/L 22.0-30.0 [facility] Serum or plasma urea nitroge n measurement (mass/volume)Ordered By: Lionel Carrington on 02-06-2022 Urea nitrogen [Mass/Vol] 20 mg/dL 9-23 [facility] COVID-19 Positive/NegativeOr dered By: Lionel Carrington on 10-27-2021 SARS-CoV-2 (COVID-19) N gene REX+probe Ql (Resp) Negative Negative [facility] Comment on above: Testing for SARS-CoV -2 by RT-PCR This test was developed and its performance characteristics determined by [employer]) and validated at the [facility]. This test has not been FDA [...] aPTT Coag (PPP) [Time] 36.2 s 25.1-36.5 [facility] Basophils Auto (Bld) [#/Vol] Ordered By: Lionel Carrington on 10-17-2021 Basophils (Bld) [#/Vol] 0.0 10*3/uL 0.0-0.2 [facility] Basophils/100 WBC Auto (Bld) Ordered By: Lionel Carrington on 10-17-2021 Basophils/100 WBC (Bld) 0.6 % [facility] Blood hemoglobin measurement (mass/volume)Ordered By: Lionel Carrington on 10-17-2021 Hemoglobin (Bld) [Mass/Vol] 13.6 g/dL 13.0-17.0 [facility] Blood leukocytes automated c ount (number/volume)Ordered By: Lionel Carrington on 10-17-2021 WBC (Bld) [#/Vol] 5.9 10*3/uL 4.5-11.0 [facility] Creatinine and Glomerular fi ltration rate.predicted panel (S/P/Bld)Ordered By: Lionel Carrington on 10-17-2021 Creatinine [Mass/Vol] 0.96 mg/dL 0.64-1.27 [facility] Eosinophils Auto (Bld) [#/Vo l]Ordered By: Lionel Carrington on 10-17-2021 Eosinophils (Bld) [#/Vol] 0.1 10*3/uL 0.0-0.45 [facility] Eosinophils/100 WBC Auto (Bl d)Ordered By: Lionel Carrington on 10-17-2021 Eosinophils/100 WBC (Bld) 2.0 % [facility] Erythrocyte distribution wid th Auto (RBC) [Ratio]Ordered By: Lionel Carrington on 10-17-2021 Erythrocyte distribution width (RBC) [Ratio] 14.5 % 12.0-14.8 [facility] Estimated glomerular filtrat ion rate (GFR) non- AmericanOrdered By: Lionel Carrington on 10-17-2021 GFR/1.73 sq M.predicted among non-blacks MDRD (S/P/Bld) [Vol rate/Area] > 60 mL/Min [facility] Hematocrit Auto (Bld) [Volum e fraction]Ordered By: Lionel Carrington on 10-17-2021 Hematocrit (Bld) [Volume fraction] 41.5 % 38.8-50.0 [facility] Laboratory - CoagulationOrde red By: Lionel Carrington on 10-17-2021 PT Coag (PPP) [Time] 11.0 s 9.0-12.9 [facility] Laboratory - Hematology and Cell countsOrdered By: Lionel Carrington on 10-17-2021 Nucleated RBC/100 WBC (Bld) [Ratio] 0.0 % 0-0.5 [facility] Lymphocytes Auto (Bld) [#/Vo l]Ordered By: Lionel Carrington on 10-17-2021 Lymphocytes (Bld) [#/Vol] 1.6 10*3/uL 1.00-4.8 [facility] Lymphocytes/100 WBC Auto (Bl d)Ordered By: Lionel Carrington on 10-17-2021 Lymphocytes/100 WBC (Bld) 26.8 % [facility] MCH Auto (RBC) [Entitic mass ]Ordered By: Lionel Carrington on 10-17-2021 MCH (RBC) [Entitic mass] 29.3 pg 27.5-35.2 [facility] MCHC Auto (RBC) [Mass/Vol]Or dered By: Lionel Carrington on 10-17-2021 MCHC (RBC) [Mass/Vol] 32.7 g/dL 32.5-35.6 [facility] MCV Auto (RBC) [Entitic vol] Ordered By: Lionel Carrington on 10-17-2021 MCV (RBC) [Entitic vol] 89.8 fL 83.5-101 [facility] Monocytes Auto (Bld) [#/Vol] Ordered By: Lionel Carrington on 10-17-2021 Monocytes (Bld) [#/Vol] 0.6 10*3/uL 0.0-0.8 [facility] Monocytes/100 WBC Auto (Bld) Ordered By: Lionel Carrington on 10-17-2021 Monocytes/100 WBC (Bld) 10.6 % [facility] Neutrophils Auto (Bld) [#/Vo l]Ordered By: Lionel Carrington on 10-17-2021 Neutrophils (Bld) [#/Vol] 3.5 10*3/uL 1.8-7.7 [facility] Neutrophils/100 WBC Auto (Bl d)Ordered By: Lionel Carrington on 10-17-2021 Neutrophils/100 WBC (Bld) 60.0 % [facility] No Panel InformationOrdered By: Lionel Carrington on 10-17-2021 Estimated GFR () > 60 mL/Min [facility] Comment on above: GFR estimated refere nce range: According to KDOQI guidelines, <60 ml/min/1.73m2 is sufficient to diagnose a patient with chronic kidney disease. Pharmacy Creatinine Clearance (Chem N/A [facility] Platelet mean volume Auto (B ld) [Entitic vol]Ordered By: Lionel Carrington on 10-17-2021 Platelet mean volume (Bld) [Entitic vol] 8.3 fL 6.6-10.1 [facility] Platelet poor plasma interna tional normalized ratio (INR) by coagulation assay (relatOrdered By: Lionel Carrington on 10-17-2021 INR Coag (PPP) [Relative time] 1.0 {INR} [facility] Comment on above: INR Therapeutic Rang [...] 10-17-2021 Platelets (Bld) [#/Vol] 249 10*3/uL 150-450 [facility] RBC Auto (Bld) [#/Vol]Ordere d By: Lionel Carrington on 10-17-2021 RBC (Bld) [#/Vol] 4.62 10*6/uL 3.90-5.60 [facility] Serum or plasma calcium eliezer urement (mass/volume)Ordered By: Lionel Carrington on 10-17-2021 Calcium [Mass/Vol] 9.7 mg/dL 8.2-10.2 [facility] Serum or plasma chloride sammy surement (moles/volume)Ordered By: Lionel Carrington on 10-17-2021 Chloride [Moles/Vol] 101 mmol/L 95-114 [facility] Serum or plasma glucose eliezer urement (mass/volume)Ordered By: Lionel Carrington on 10-17-2021 Glucose [Mass/Vol] 87 mg/dL 70-100 [facility] Comment on above: ADA recommended refe rence range Random Glucose Reference Range is dependent on time and content of last meal. Glucose of more than 200 mg/dL in a nonstressed, ambulatory subject supports the diagnosis of Diabetes Mellitus. Serum or plasma potassium me asurement (moles/volume)Ordered By: Lionel Carrington on 10-17-2021 Potassium [Moles/Vol] 4.4 mmol/L 3.5-5.1 [facility] Serum or plasma sodium measu rement (moles/volume)Ordered By: Lionel Carrington on 10-17-2021 Sodium [Moles/Vol] 136 mmol/L 136-146 [facility] Serum or plasma total carbon dioxide measurement (moles/volume)Ordered By: Lionel Carrington on 10-17-2021 CO2 [Moles/Vol] 25.6 mmol/L 22.0-30.0 [facility] Serum or plasma urea nitroge n measurement (mass/volume)Ordered By: Lionel Carrington on 10-17-2021 Urea nitrogen [Mass/Vol] 18 mg/dL 9-23 [facility] Vital Signs Date Time Vital Sign Value Performing Clinician Facility 08-12-2023 11:10-0500 Body height 182.88 cm MD Yolande Staley Work Phone: [facility] 08-12-2023 11:10-0500 Body mass index (BMI) [Ratio] 24.3 kg/m2 MD Yolande Staley Work Phone: [facility] 08-12-2023 11:10-0500 Body weight 81.19 kg MD Yolande Staley Work Phone: [facility] 02-10-2023 14:16-0400 Blood Pressure Location Qamar [facility] [place] 02-10-2023 14:16-0400 Diastolic blood pressure 80 mm[Hg] Qamar NILL [facility] [place] 02-10-2023 14:16-0400 Heart rate 70 /min Qamar NILL [facility] [place] 02-10-2023 14:16-0400 Respiratory rate 16 /min Qamar [facility] [place] 02-10-2023 14:16-0400 Systolic blood pressure 124 mm[Hg] Qamar NILL [facility] [place] 12-03-2022 10:20-0400 Body height 182.88 cm Zoran Chavez Other [facility] Other 12-03-2022 10:20-0400 Body mass index (BMI) [Ratio] 25.49 kg/m2 Zoran Chavez Other [facility] Other 12-03-2022 10:20-0400 Body weight 85.28 kg Zoran Chavez Other [facility] Other 10-22-2022 10:20-0400 Body height 182.88 cm Zoran Chavez Other [facility] Other 10-22-2022 10:20-0400 Body mass index (BMI) [Ratio] 25.63 kg/m2 Zoran Chavez Other [facility] Other 10-22-2022 10:20-0400 Body weight 85.73 kg Zoran Chavez Other [employer] [facility] [employer] Other 10-22-2022 10:20-0400 Diastolic blood pressure 80 mm[Hg] Zoran Chvaez Other [facility] [employer] Other 10-22-2022 10:20-0400 Systolic blood pressure 110 mm[Hg] Zoran Chavez Other [facility] [employer] Other 02-24-2022 10:43-0400 Blood Pressure Location Lionel CARRINGTON [facility] 02-24-2022 10:43-0400 Diastolic blood pressure 80 mm[Hg] Lionel CARRINGTON [facility] 02-24-2022 10:43-0400 Heart rate 65 /min Lioneljameel CARRINGTON [facility] 02-24-2022 10:43-0400 Respiratory rate 16 /min Lionel CARRINGTON [facility] 02-24-2022 10:43-0400 Systolic blood pressure 140 mm[Hg] Lionel CARRINGTON [facility] 02-17-2022 15:15-0400 Diastolic blood pressure 83 mm[Hg] MD Yolande Staley Work Phone: [facility] 02-17-2022 15:15-0400 Heart rate 58 /min MD Yolande Staley Work Phone: [facility] 02-17-2022 15:15-0400 Respiratory rate 16 /min MD Yolande Staley Work Phone: [facility] 02-17-2022 15:15-0400 SaO2% (BldA) [Mass fraction] 95 % MD Yolande Staley Work Phone: [facility] 02-17-2022 15:15-0400 Systolic blood pressure 166 mm[Hg] MD Yolande Staley Work Phone: [facility] 02-17-2022 14:30-0400 Body height 182.88 cm MD Yolande Staley Work Phone: [facility] 02-17-2022 14:30-0400 Body mass index (BMI) [Ratio] 26.2 kg/m2 MD Yolande Staley Work Phone: [facility] 02-17-2022 14:30-0400 Body weight 87.7 kg MD Yolande Staley Work Phone: [facility] 02-17-2022 14:17-0400 Body temperature 97.6 [degF] MD Yolande Staley Work Phone: [facility] 02-17-2022 13:52-0400 Inhaled oxygen flow rate 10 L/min MD Yolande Staley Work Phone: [facility] 10-17-2021 11:42-0400 Body height 180.34 cm MD Yolande Staley Work Phone: [facility] 10-17-2021 11:42-0400 Body mass index (BMI) [Ratio] 27 kg/m2 MD Yolande Staley Work Phone: [facility] 10-17-2021 11:42-0400 Body temperature 98.4 [degF] MD Yolande Staley Work Phone: [facility] 10-17-2021 11:42-0400 Body weight 88 kg MD Yolande Staley Work Phone: [facility] 10-17-2021 11:42-0400 Diastolic blood pressure 90 mm[Hg] MD Yolande Staley Work Phone: [facility] 10-17-2021 11:42-0400 Heart rate 64 /min MD Yolande Staley Work Phone: [facility] 10-17-2021 11:42-0400 SaO2% (BldA) [Mass fraction] 100 % MD Yolande Staley Work Phone: [facility] 10-17-2021 11:420408 Systolic blood pressure 172 mm[Hg] MD Yolande Staley Work Phone: [facility] Encounters Encounter Date Encounter Type Care Provider Facility Start: 08-28-2023 End: 08-28-2023 ambulatory Yolande Staley Facility:[facility] Start: 08-12-2023 End: 08-12-2023 ambulatory Yolande Staley Facility:[facility] Start: 08-12-2023 End: 08-12-2023 ambulatory MD Yolande Staley Work Phone: [facility] Work Phone: Start: 08-12-2023 End: 08-12-2023 Patient encounter procedure MD Yolande Staley Work Phone: [facility] Work Phone: Start: 08-12-2023 End: 08-12-2023 ambulatory MD Yolande Staley Work Phone: [facility] Work Phone: Start: 08-12-2023 End: 08-12-2023 Patient encounter procedure MD Yolande Staley Work Phone: [facility] Work Phone: Start: 07-26-2023 End: 07-27-2023 ambulatory Tamiko Landa MD Facility:[facility] Start: 04-27-2023 End: 04-28-2023 ambulatory Lionel CARRINGTON Facility:[facility] Start: 04-27-2023 End: 04-27-2023 Patient encounter procedure Lionel CARRINGTON [facility] Start: 03-15-2023 End: 03-16-2023 ambulatory Tamiko Landa MD Facility:[facility] Start: 03-10-2023 End: 03-11-2023 ambulatory Qamar R ROBINSONL Facility:CD:[id number] Start: 02-10-2023 End: 02-11-2023 ambulatory Qamar R ROBINSONL Facility:[facility] [place] Start: 02-10-2023 End: 02-10-2023 Patient encounter procedure Qamar R ROBINSONL General Surgery N[facility]Said [place] Start: 01-20-2023 End: 01-21-2023 ambulatory Lionel CARRINGTON [facility]: [facility] Start: 01-14-2023 End: 01-15-2023 ambulatory Lionel CARRINGTON Facility:CD:[id number] Start: 01-05-2023 End: 01-06-2023 ambulatory Lionel CARRINGTON Facility:[facility] Start: 01-05-2023 End: 01-05-2023 Patient encounter procedure Lionel R DEVONTE [facility] Start: 01-01-2023 End: 01-01-2023 ambulatory Yolande Staley Facility:[facility] Start: 01-01-2023 End: 01-01-2023 ambulatory MD Yolande Staley Work Phone: [facility] Work Phone: Start: 01-01-2023 End: 01-01-2023 Patient encounter procedure MD Yolande Staley Work Phone: [facility] [place] Work Phone: Start: 12-28-2022 End: 12-29-2022 ambulatory Tamiko Landa MD Facility:[facility] Start: 12-14-2022 End: 12-15-2022 ambulatory Tamiko Landa MD Facility:[facility] Start: 12-03-2022 End: 12-03-2022 ambulatory Zoran Chavez Other [facility] Other Start: 12-03-2022 Office outpatient visit 15 minutes Zoran Chavez [facility] [place] Start: 11-20-2022 End: 11-21-2022 ambulatory ANDRIUS GIEDRAITIS Facility:[facility] Start: 10-28-2022 End: 10-29-[address] NELLY HERRERA Facility:[facility] Start: 10-27-2022 End: 11-18-[address] ZORAN CHAVEZ Facility:[facility] Start: 10-23-2022 End: 10-24-[address] ZORAN CHAVEZ Facility:[facility] Start: 10-22-2022 End: 10-22-2022 ambulatory Zoran Chavez Other [facility] [employer] Other Start: 10-22-2022 Office outpatient visit 15 minutes Zoran Chavez [facility] [place] Start: 10-05-2022 End: 10-06-[address] YOLANDE STALEY . Facility: Start: 09-29-2022 End: 09-30-2022 ambulatory Lionel CARRINGTON Facility:[facility] Start: 09-24-2022 End: 09-25-[address] YOLANDE STALEY . Facility: Start: 09-21-2022 End: 09-22-[address] LIONEL CARRINGTON . Facility: Start: 09-21-2022 End: 09-22-2022 ambulatory Lionel CARRINGTON Facility:[facility] Start: 09-21-2022 End: 09-21-2022 Patient encounter procedure Lionel CARRINGTON [facility] Start: 08-19-2022 End: 08-20-[address] LIONEL CARRINGTON . Facility: Start: 08-17-2022 End: 08-18-2022 ambulatory Lionel CARRINGTON Facility:[facility] Start: 08-17-2022 End: 08-17-2022 Patient encounter procedure Lionel CARRINGTON [facility] Start: 08-04-2022 End: 08-05-[address] YOLANDE STALEY . Facility: Start: 07-28-2022 End: 07-29-[address] YOLANDE STALEY . Facility:[facility] Start: 07-23-2022 End: 07-23-[address] LIONEL CARRINGTON . Facility: Start: 07-20-2022 End: 07-21-2022 ambulatory Lionel CARRINGTON Facility:[facility] Start: 07-20-2022 End: 07-20-2022 Patient encounter procedure Lionel CARRINGTON [facility] Start: 07-07-2022 End: 07-08-2022 ambulatory Lionel CARRINGTON Facility:[facility] Start: 07-07-2022 End: 07-07-2022 Patient encounter procedure Lionel CARRINGTON [facility] Start: 06-30-2022 End: 07-01-[address] YOLANDE STALEY . Facility: Start: 06-04-2022 End: 06-04-[address] YOLANDE STALEY . Facility:[facility] Start: 05-25-2022 End: 05-26-[address] YOLANDE STALEY . Facility:[facility] Start: 05-18-2022 End: 05-18-2022 Patient encounter procedure Lionel CARRINGTON [facility] Start: 04-27-2022 End: 04-28-[address] YOLANDE STALEY . Facility: Start: 04-18-2022 End: 04-18-[address] FELICIA GALDAMEZ . Facility:[facility] Start: 04-15-2022 End: 04-15-2022 Patient encounter procedure Lionel CARRINGTON [facility] Start: 03-26-2022 End: 03-26-[address] LIONEL CARRINGTON . Facility:[facility] Start: 03-12-2022 End: 03-13-[address] YOLANDE STALEY . Facility: Start: 03-09-2022 End: 03-09-2022 Patient encounter procedure Lionel R DEVONTE [facility] Start: 02-27-2022 End: 02-27-2022 Lab Drop off Lionel CARRINGTON [facility] Start: 02-27-2022 End: 02-27-2022 Patient encounter procedure Lionel CARRINGTON [facility] [place] Start: 02-24-2022 End: 02-24-2022 Patient encounter procedure Lionel Aubrey CARRINGTON [facility] Start: 02-17-2022 End: 02-17-2022 Admission to same day surgery center MD Yolande Staley Work Phone: [facility] Start: 02-13-2022 End: 02-13-2022 Patient encounter procedure MD Yolande Staley Work Phone: [facility]-Pre-Surgical Testing Start: 02-06-2022 End: 02-06-2022 Patient encounter procedure MD Yolande Staley Work Phone: [facility] Start: 11-11-2021 End: 11-11-2021 Patient encounter procedure Lionel CARRINGTON [facility] Start: 11-05-2021 End: 11-05-2021 Patient encounter procedure Lionel Aubrey DEVONTE [facility] Start: 10-29-2021 End: 10-29-2021 Admission to same day surgery center MD Yolande Staley Work Phone: [facility] [place] Start: 10-27-2021 End: 10-27-2021 Patient encounter procedure MD Yolande Staley Work Phone: [facility]-Surgical [facility] Start: 10-17-2021 End: 10-17-2021 Patient encounter procedure MD Yolande Staley Work Phone: [facility] Procedures Date Procedure Procedure Detail [...] By: #### P SAD #### [facility] [address] [place] [address] Dr. Johnna Dixon Start: 02-17-2022 Transurethral resect [...] CARRINGTON Comment on above: had recently at [facility] Start: 05-21-2014 Colonoscopy Qamar DOSS Start: 06-21-2010 [...] 10-04-2023 ambulatory Ambulatory Facility:[facility] [place] Start: 08-12-2023 Patient referral [facility] Work Phone: Start: 08-12-2023 X-ray of cervical spine XR cer vical spine w flex/ext [facility] Start: 08-12-2023 X-ray of lumbar spin e, six views including bending views XR lumbar spine 6V w bending [facility] Start: 08-12-2023 XR Cervical spine Vi ews W flexion and W extension [facility] Start: 08-12-2023 XR Lumbar spine Views F [facility] Start: 02-17-2022 End: 02-17-2022 [facility] Work Phone: Start: 02-17-2022 Transurethral resect ion of bladder neoplasm OR Cysto/TURBT/Bladder Biopsy/Fulg (Not Applicable) [facility] Start: 02-17-2022 End: 02-17-2022 Admission to same day surgery center Departed Surgical Day Care [facility] [place] Start: 02-13-2022 End: 02-13-2022 Patient encounter procedure Departed Clinical [facility]po[facility]Eyoxsnpp Testing MR Cervical spine WO and W contrast IV [facility] Patient referral [facility] Work Phone: Immunizations Immunization Date Immunization Notes Care Provider Gary francisco 04-16-2022 SARS-CoV-2 (COVID-19 ) [id number] Qamar SMITH [facility] 03-27-2022 influenza virus vacc ine, unspecified formulation Qamar SMITH [facility] 05-06-2021 COVID-19 mRNA-1273 (Moderna) MD Yolande Staley Work Phone: [facility] 09-19-2020 COVID-19 mRNA-1273 (Moderna) MD Yolande Staley Work Phone: [facility] Comment on above: Result Comment: 2022: [id number] 08-22-2020 COVID-19 mRNA-1273 (Moderna) MD Yolande Staley Work Phone: [facility] Comment on above: Result Comment: 2022: [id number] 06-21-2020 SARS-CoV-2 (COVID-19 ) mRNA-1273 vaccine Lionel CARRINGTON [facility] 05-23-2020 influenza virus vacc ine, unspecified formulation Qamar SMITH [facility] 04-03-2020 influenza virus vacc ine, unspecified formulation [employer] [facility] 05-29-2019 influenza virus vacc ine, unspecified formulation [employer] [facility] 04-14-2019 influenza, unspecifi ed formulation [employer] [facility] 09-26-2018 tetanus and diphther ia toxoids, adsorbed, preservative free, for adult use (2 Lf of tetanus toxoid and 2 Lf of diphtheria toxoid) [employer] [facility] 10-11-2017 pneumococcal polysaccharide vaccine, 23 valent [employer] [facility] 07-22-2016 pneumococcal conjuga te vaccine, 13 valent [employer] [facility] 06-29-2013 tetanus toxoid, redu mirtha diphtheria toxoid, and acellular pertussis vaccine, adsorbed [employer] [facility] 03-10-2000 Td(adult) unspecifie d formulation [employer] [facility] Payers Date Payer Category Payer Self-pay [id number] 2022 Unknown 1958 Medicare [id number] 1959 Unknown [id number] 2.16.840.1.262051.19 1951 Unknown [id number] 2.16.840.1.265137.3.579.2. 593 1951 Unknown [id number] 2.16.840.1.886143.3.579.2. 593 1951 Unknown [id number] 2.16.840.1.634222.3.579.2. 593 1951 Unknown [id number] 2.16.840.1.143473.3.579.2. 593 1951 Unknown [id number] 2.16.840.1.398281.3.579.2. 593 1951 Unknown [id number] 2.16.840.1.374207.3.579.2. 593 1951 Unknown [id number] 2.16.840.1.592705.3.579.2. 593 1951 Unknown [id number] 2.16.840.1.825878.3.579.2. 593 1951 Unknown [id number] 2.16.840.1.352349.3.579.2. 593 1951 Unknown [id number] 2.16.840.1.140609.3.579.2. 593 1951 Unknown [id number] 2.16.840.1.728295.3.579.2. 593 1951 Unknown [id number] 2.16.840.1.986514.3.579.2. 593 1951 Unknown [id number] 2.16.840.1.854260.3.579.2. 593 1951 Unknown [id number] 2.16.840.1.853353.3.579.2. 593 1951 Unknown [id number] 2.16.840.1.754959.3.579.2. 593 1951 Unknown [id number] 2.16.840.1.369845.3.579.2. 593 1951 Unknown [id number] 2.16.840.1.192732.3.579.2. 593 1951 Unknown [id number] 2.16.840.1.477075.3.579.2. 593 1951 Unknown [id number] 2.16.840.1.419544.3.579.2. 593 1951 Unknown [id number] 2.16.840.1.457530.3.579.2. 727 1951 Unknown [id number] 2.16.840.1.068428.3.579.2. 72 1951 Unknown [id number] 2.16.840.1.739738.3.579.2. 727 1951 Unknown [id number] 2.16.840.1.589464.3.579.2. 72 1951 Unknown [id number] 2.16.840.1.332449.3.579.2. 727 1951 Unknown [id number] 2.16.840.1.140760.3.579.2. 72 1951 Unknown [id number] 2.16.840.1.717384.3.579.2. 727 1951 Unknown [id number] 2.16.840.1.056562.3.579.2. 72 1951 Unknown [id number] 2.16.840.1.694581.3.579.2. 727 1951 Unknown [id number] 2.16.840.1.688278.3.579.2. 72 1951 Unknown [id number] 2.16.840.1.708729.3.579.2. 727 1951 Unknown [id number] 2.16.840.1.380321.3.579.2. 72 1951 Unknown [id number] 2.16.840.1.959366.3.579.2. 727 1951 Unknown [id number] 2.16.840.1.837518.3.579.2. 727 1951 Unknown [id number] 2.16.840.1.462596.3.579.2. 196 1951 Unknown [id number] 2.16.840.1.029397.3.579.2. 196 1951 Unknown [id number] 2.16.840.1.165354.3.579.2. 196 1951 Unknown [id number] 2.16.840.1.431242.3.579.2. 196 1951 Unknown [id number] 2.16.840.1.899317.3.579.2. 196 Medicare Medicare [id number] Private Health Insurance [id number] Unknown [place] [id number] Unknown [id number] 2.840.1.713897.3.579.2. 531 Unknown [id number] 2.840.1.451691.3.579.2. 531 Unknown [id number] 2.840.1.391014.3.579.2. 531 Social History Date Type Detail Facility Start: 10-17-2021 End: 02-17-2022 Tobacco smoking status AZIS Ex-smoker (finding) [facility] Comment on above: pt quit smoking 10+ yrs ago Start: 1950 Sex Assigned At Male F [facility] Start: 11-05-2021 Tobacco smoking status Never s moked tobacco (finding) [facility] Tobacco smoking status Never [facility] Comment on above: pt quit smoking 10+ yrs ago Sex Assigned At Male [facility] Medical Equipment Procedure Code Equipment Code Equipment Original Text Equipment Identifier Dates Transurethral resection of bladder tumor (TURBT) with cystoscopy Polymeric ureteral stent [id number] FDA Start: 10-29-2021 Decompression, spine, cervical, posterior approach Bone-screw internal spinal fixation system, non-sterile ()[id number] FDA Start: 04-18-2020 Decompression, spine, cervical, posterior approach Bone-screw internal spinal fixation system, non-sterile ()[id number] FDA Start: 04-18-2020 Decompression, spine, cervical, posterior approach Bone-screw internal spinal fixation system, non-sterile ()[id number] FDA Start: 04-18-2020 Decompression, spine, cervical, posterior approach Bone-screw internal spinal fixation system, non-sterile ()[id number] FDA Start: 04-18-2020 Decompression, spine, cervical, posterior approach Bone-screw internal spinal fixation system, non-sterile ()[id number] FDA Start: 04-18-2020 Goals Date Patient Goal Desired Activity /State Functional Status Date Assessment Result Facility 04-27-2023 Functional Status N/A [facility] 02-10-2023 Functional Status N/A [facility] 01-05-2023 Functional Status N/A [facility] 02-24-2022 Functional Status N/A [facility] Clinical Notes 11-04-2021 to 04-27-2023 Note Date & Type Note Facility 04-27-2023 Note [id number]#1.00TIFF [facility] 04-27-2023 Hospital Discharge instructions Patient Education [...] Address: [facility] [address] [place] [address]- Business (1) When: Unknown Comments:Office will call to schedule follow up [facility] 04-27-2023 Note Custom Cystoscopy ? Voiding after [...] have a fever over 100 degrees. [facility] 02-10-2023 Note Chief Complaint consultation for [...] vertebral fu (more content not included)... [facility] Comment on above: Result Comment: Elec tronically Signed By: LUIS NOBLE, Qamar Ernandez\Date and Time Signed: 02/10/23 15:05 EDT 01-05-2023 Note [id number]#1.00CD:127 [facility] 01-05-2023 Hospital Discharge instructions Patient Education [...] With:Lionel CARRINGTON Address: [facility] [address] [place] [address] [facility] (1) When: Unknown Comments:Office will call to schedule follow up [facility] 01-05-2023 Note Custom Cystoscopy ? Voiding after [...] have a fever over 100 degrees. [facility] 12-03-2022 Evaluation note Encounter Date Diagnosis [...] M46.1) Nov, Neurogenic claudication (ICD-10 - R29.818) [facility] Other 05-04-2023 Evaluation note* Encounter Date Diagnosis [...] spine October, Neurogenic claudication (ICD-10 - R29.818) [facility] Other 04-11-2023 Note [id number]:127[facility] 09-29-2022 NoteCustom Cystoscopy ? Voiding [...] you have a fever over 100 degrees.[facility] 09-21-2022 Hospital Discharge instructions Patient Education [...] if anything looks unusual. Men with a hdjquy-oyuj-qlxyba risk for skin cancer may want to see a bark skinner (administrative representative) for an annual body check. Where to find more information National Cancer [place]: https://www.cancer.gov/about-cancer/screening Centers for Disease Control and Prevention: https://www.cdc.gov/cancer/dcpc/prevention/screening.htm [place] [employer]: https://www.cancer.org/latest-news/8-suqhcx-uhefyhopc-pjdkm-mjv-nko.html Contact a health care provider if: You [...] 03/04/2017 Document Revised: 02/24/2019 Document Reviewed: 03/04/2017 [employer] Patient Education 2020 [employer] Follow Up Care 09/19/2021 11:05:08 With:DEVONTE NOBLE, Lionel Burgos, URL Address: [facility] [address] , [place] [address]- When: Unknown [facility] 01-18-2023 Note [id number]:127[facility] 07-07-2022 Hospital Discharge instructions Patient [...] CARRINGTON Address: [facility] [address] [place] [address]- [facility] (1) When: Unknown Comments:Office will call to schedule follow up [facility]01-17-2023 NoteCustom Cystoscopy ? Voiding after the procedure: [...] you have a fever over 100 degrees.[facility] 02-24-2022 Hospital Discharge instructions Patient Education [...] if anything looks unusual. Men with a ygceup-qzar-sdacgm risk for skin cancer may want to see a bark skinner (administrative representative) for an annual body check. Where to find more information National Cancer [place]: https://www.cancer.gov/about-cancer/screening Centers for Disease Control and Prevention: https://www.cdc.gov/cancer/dcpc/prevention/screening.htm [place] [employer]: https://www.cancer.org/latest-news/9-sxhuui-lltllmkpy-hxsoq-eqg-oew.html Contact a health care provider if: You [...] 03/04/2017 Document Revised: 02/24/2019 Document Reviewed: 03/04/2017 [employer] Patient Education [facility] Up Care 02/05/2022 13:48:40 With:DEVONTE NOBLE, Lionel Burgos, [place] Address: [facility] [address] , [place] [address]- [id number] When: Unknown [facility] 05-24-2022 Hospital Discharge instructions Patient Education [...] CARRINGTON Address: [facility] [address] [place] [address]- Business (1) When: Unknown Comments:Keep scheduled appointment [facility]05-17-2022 Hospital Discharge instructions Patient Education 11/04/2021 14:11:16 [...] who: Are older than age 65. Are -[place]. Are obese. Have a family history of [...] cells. Follow these instructions at home: Take yikz-kdz-mccefwr and prescription medicines only as told by [...] 06/07/2006 Document Revised: 05/20/2018 Document Reviewed: 02/15/2017 [employer] Patient Education 2020 [employer] Follow Up Care 10/14/2021 11:26:04 With:Lionel CARRINGTON MD, URL Address: [facility] [address] , [place] [address]- When: Unknown [facility] Evaluation + Plan note Future Appointments Appointment Date:09/21/2022 09:45:00 AM Scheduled Provider:Lionel CARRINGTON [facility] Type:URO Office Visit [facility] Evaluation + Plan note Future Appointments Appointment Date:03/09/2022 09:00:00 AM Scheduled Provider: [facility] Nurse Visit Appointment Date:04/15/2022 09:00:00 AM Scheduled Provider: Location:[facility] Appointment Type:URO Nurse Visit Appointment Date:09/21/2022 09:45:00 AM Scheduled Provider:Lionel CARRINGTON MD Location:[facility] Appointment Type:URO Office Visit [facility] Evaluation + Plan note Future Appointments Appointment Date:03/09/2022 09:00:00 AM Scheduled Provider: Location:[facility] Appointment Type:URO Nurse Visit Appointment Date:04/15/2022 09:00:00 AM Scheduled Provider: Location:[facility] Appointment Type:URO Nurse Visit Appointment Date:09/21/2022 09:45:00 AM Scheduled Provider:Lionel CARRINGTON MD Location:[facility] Appointment Type:URO Office Visit Diagnostic Tests Pending * [facility]rine [facility] App[facility]ments Appointment Date:04/15/2022 09:00:00 AM Scheduled Provider: Location:[facility] Appointment Type:URO Nurse Visit Appointment Date:09/21/2022 09:45:00 AM Scheduled Provider:Lionel CARRINGTON MD Location:[facility] Appointment Type:URO Office Visit [facility] evaluation + Plan note Future Appointments Appointment Date:07/20/2022 10:00:00 AM Scheduled Provider: Location:[facility] [place] Appointment Type:URO Nurse Visit Appointment Date:08/17/2022 10:00:00 AM Scheduled Provider: Location:[facility] Appointment Type:URO Nurse Visit Appointment Date:09/21/2022 09:45:00 AM Scheduled Provider:Lionel CARRINGTON MD Location:[facility] Appointment Type:URO Office Visit Diagnostic Tests Pending * UroVysion FISH ([facility]) [facility]07/22 [facility] Future Appointments Appointment Date:08/17/2022 10:00:00 AM Scheduled Provider: Location:[facility] Appointment Type:URO Nurse Visit Appointment Date:09/21/2022 09:45:00 AM Scheduled Provider:Lionel CARRINGTON MD Location:[facility] Appointment Type:URO Office Visit [facility] Evaluation + Plan note Future Appointments Appointment Date:09/22/2022 02:00:00 PM Scheduled Provider: Location:[facility] Appointment Type:Urology CALL PAT FT Appointment Date:09/29/2022 11:15:00 AM Scheduled Provider: Location:[facility] Appointment Type:Urology FT [facility] evaluation + Plan note Future Appointments Appointment Date:09/22/2022 02:00:00 PM Scheduled Provider: Location:[facility] Appointment Type:Urology CALL PAT FT Appointment Date:09/29/2022 11:15:00 AM Scheduled Provider: Location:[facility] Appointment Type:Urology FT Diagnostic Tests Pending * Urine Cytology ([facility]) 09/21/22 [facility] evaluation + Plan note Future Appointments Appointment Date:10/04/2023 10:15:00 AM Scheduled Provider:Lionel CARRINGTON MD Location:[facility] Appointment Type:URO Office Visit Diagnostic Tests Pending * UroVysion Fish and Urine Cyto ([facility]) [facility]05/23 [facility] Future Appointments Appointment Date:10/04/2023 10:15:00 AM Scheduled Provider:Lionel CARRINGTON MD Location:[facility] Appointment Type:URO Office Visit [facility] [place] Evaluation + Plan note Future Appointments Appointment Date:10/04/2023 10:15:00 AM Scheduled Provider:Lionel CARRINGTON MD Location:[facility] Appointment Type:URO Office Visit Diagnostic Tests Pending * UroVysion Fish and Urine Cyto ([facility]) 04/27/23 [facility] assessment information available [facility] Work Phone: Evaluation note* Diagnosis Onset Date Resolution Status Spinal stenosis of cervical region with radiculopathy acute Spinal stenosis of lumbar region with radiculopathy acute [facility] Work Phone: Hisexib general Narrative - Reported* Type Description Date [...] KNEE SCOPE Surgical History L shoulder NAE -[facility] 2016 Hospitalization History FLU X2-3 DAYS Hospitalization History see surg. hx. Perzo Other Hospital course Narrative No data available for this section [facility] Hospital Discharge instructions No data available for this section [facility] No data available for this section [facility] Chief Complaint and Reason for Visit [...] Diagnosis 1 Cervical spondylosis (M47.812) Referral [facility] Referring Provider First Name Zoran Referring Provider Last Name Scott Referring Provider Specialty Neurologica l Surgery Referred Organization [facility] Referred Address [address] [place], [place],[address] Referred Provider Specialty Physical The rapist Referral Priority Routine Reason evaluate and tr eat for neck and back pain Diagnosis 1 Cervical spondylosis (M47.812) Diagnosis 2 Low back pain, unspe cified (M54.50) Referral Organization [facility] Referring Provider First Name Zoran Referring Provider Last Name Scott Referring Provider Specialty Neurologica l Surgery Referred Organization [facility] Referred Provider Raoul Soriano Referred Address [address] [place], [place],[address] Referred Provider Specialty Pain Medicin e Referral [...] DATE CREATED AUTHOR 11/27/2022 [facility] DATE CREATED AUTHOR AUTHOR'S ORGANIZ ATION 06/28/2023 [facility] DATE CREATED AUTHOR AUTHOR'S ORGANIZ ATION 07/29/2023 [facility] DATE CREATED AUTHOR AUTHOR'S ORGANIZ ATION 08/30/2023 [facility] FOR RECORDS PERTAINING TO PATIENTS WHO [...] BE BASED ON THE PRIMARY CLINICAL RECORDS. [facility]. provides no warranty or guarantee of the accuracy or completeness of information in this document.
--- NOTE | 2023-09-02 09:19 | P.CN_ITS ---
Consult Note: HPI Data of Consult Patient: known to practice within the last 3 years Consult date: 07/26/23 Requesting Physician: Erin Shelton NP Primary Care Provider: Deandre Staley MD Consult Narrative Reason for consult: chronic neck and right shoulder pain Narrative: 73yom who presents today for evaluation and management of chronic neck and right shoulder pain. Patient recently underwent right paracervical TPI with 75% improvement ongoing. Patient reports 50% improvement from prior right C4-5 C5-6 RFA. Patient continues to have right upper back and shoulder pain. Recent right shoulder Xray consistent with OA of AC joint. Pain today 08/28 increasing with activity bending twisting lifting. Pain decreased with reclining, heat, and lying. Patient finds mild to moderate relief from current medication regimen without side effects. Patient had to stop tizanidine due to extreme drowsiness but finds benefit to robaxin 500-1000mg BID PRN. cc:: CC: Erin Shelton NP Review of Systems ROS Status of ROS 10 or more systems reviewed and unremark able except as noted in history and below Musculoskeletal Reports: neck pain and joint pain PFSH PFSH Medical History COPD (chronic obstructive pulmonary disease) ?J44.9 - Chronic obstructive pulmonary disease, unspecified (ICD-10) Arthritis ?M19.90 - Unspecified osteoarthritis, unspecified site (ICD-10) Anemia ?D64.9 - Anemia, unspecified (ICD-10) Bladder cancer ?C67.9 - Malignant neoplasm of bladder, unspecified (ICD-10) 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 - Other specified disorders of bladder (ICD-10) Neck pain ?M54.2 - Cervicalgia (ICD-10) Low back pain ?M54.50 - Low back pain, unspecified (ICD-10) Osteoarthritis ?M19.90 - Unspecified osteoarthritis, unspecified site (ICD-10) Acid reflux ?K21.9 - Gastro-esophageal reflux disease without esophagitis (ICD-10) Hearing deficit ?H91.90 - Unspecified hearing loss, unspecified ear (ICD-10) Prostate cancer ?C61 - Malignant neoplasm of prostate (ICD-10) Former smoker ?Z87.891 - Personal history of nicotine dependence (ICD-10) Hypertension ?I10 - Essential (primary) hypertension (ICD-10) Surgical History History of colonoscopy ?Z98.890 - Other specified postprocedural states (ICD-10) History of arthroscopy of knee ?Z98.890 - Other specified postprocedural states (ICD-10) History of foot surgery ?Z98.890 - Other specified postprocedural states (ICD-10) History of appendectomy ?Z90.49 - Acquired absence of other specified parts of digestive tract (ICD- 10) History of hernia repair ?Z98.890 - Other specified postprocedural states (ICD-10) ?Z87.19 - Personal history of other diseases of the digestive system (ICD-10) S/P cystoscopy ?Z98.890 - Other specified postprocedural states (ICD-10) H/O transurethral resection of bladder tumor (TURBT) ?Z98.890 - Other specified postprocedural states (ICD-10) ?Z86.03 - Personal history of neoplasm of uncertain behavior (ICD-10) H/O transurethral resection of bladder tumor (TURBT) ?Z98.890 - Other specified postprocedural states (ICD-10) ?Z86.03 - Personal history of neoplasm of uncertain behavior (ICD-10) S/P cervical spinal fusion ?Z98.1 - Arthrodesis status (ICD-10) H/O prostatectomy ?Z90.79 - Acquired absence of other genital organ(s) (ICD-10) History of ankle surgery ?Z98.890 - Other specified postprocedural states (ICD-10) H/O shoulder surgery ?Z98.890 - Other specified postprocedural states (ICD-10) Family History Other Depression Family history of diabetes mellitus Family history of hypertension Social History Within the past year, how often did you have a drink containing alcohol: 2-4 times a month Smoking status: Former smoker Non-prescribed substance use: denies use Previous occupational history: retired Highest level of school completed/degree received: Associate degree: occupational, technical, vocational program Meds Home Medications and Allergies Home Medications Medication Instructions Recorded Confirmed Type diclofenac sodium 75 mg 75 mg PO BID 11/20/22 03/15/23 History tablet,delayed release fluticasone fur. 100 mcg-umeclid 1 inh inhalation DAILY 11/20/22 03/15/23 History 62.5 mcg-vilant 25 mcg inhalat.powder (Trelegy Ellipta) pantoprazole 40 mg tablet,delayed 40 mg PO DAILY 11/20/22 03/15/23 History release hydrocodone 5 mg-acetaminophen 325 1 tab PO DAILY 01/28/23 03/15/23 History mg tablet amlodipine 5 mg tablet 5 mg PO DAILY 03/15/23 03/15/23 History methocarbamol 500 mg tablet mg PO QDAY 04/21/23 History hydrocodone 5 mg-acetaminophen 325 1 tab PO DAILY PRN pain #30 tabs 05/18/23 Rx mg tablet hydrocodone 5 mg-acetaminophen 325 1 tab PO .EVERYDAY PRN pain #30 07/12/23 Rx mg tablet tabs hydrocodone 5 mg-acetaminophen 325 1 tab PO DAILY PRN pain #30 tabs 08/24/23 Rx mg tablet Allergies Allergy/AdvReac Type Severity Reaction Status Date / Time codeine Allergy Unknown Hives Verified 03/15/23 10:17 acetaminophen [From Percocet] AdvReac ineffective Verified 03/15/23 10:17 oxycodone [From Percocet] AdvReac ineffective Verified 03/15/23 10:17 Exam Constitutional Documenting provider has reviewed patient's vital signs: yes Common normals: no apparent distress, oriented x3, healthy appearing, alert and well nourished General appearance: cooperative Orientation/consciousness: Yes awake, Yes oriented to person, Yes oriented to place and Yes oriented to time [facility] Common normals: normocephalic, hearing grossly normal bilaterally and moist oral mucous membranes Head and scalp: normocephalic Eye Common normals: PERRL Pupil: PERRL Neck & C-Spine Common normals: full ROM General: normal visual inspection Cervical spine: pain with cervical ROM, cervical spine tenderness and paracervical muscle tenderness Other: no arm drift muscle strength bilat UE 5/5 with intact sensation axial pain with ROM Chest Common normals: inspection of chest normal Respiratory Common normals: normal respiratory effort, no retractions and no use of accessory muscles Effort & inspection: able to speak in complete sentences and symmetric chest movement Extremity Common normals: normal to inspection, full ROM and normal capillary refill Right upper extremity: shoulder joint Other: pain over right AC joint, pain increased with crossbody adduction, positive empty cans and lift off Neuro Common normals: oriented x3, CN's II-XII intact bilaterally, moves all extremities, no focal motor deficits, no sensory deficits noted, deep tendon reflexes 2+ bilaterally and gait normal Sensorium/orientation: alert Motor exam: strength 5/5 throughout and no movement abnormalities noted Psych Common normals: mental status grossly normal, thought process normal, cooperative, affect normal, speech normal and activity/motor behavior normal Speech: normal speech Thought process: normal thought process Assessment and Plan Assessment and Plan (1) Osteoarthritis of right shoulder: (2) Myofascial pain: (3) Cervical spondylosis: (4) Chronic prescription opiate use: Assessment and Plan: I feel these medications are improving the patient's quality of life and allow them to tolerate activities of daily living as well as participate in recreational activity.? The patient does not report intolerable side effects. The patient is NOT opioid naive and non-pharmacologic and non-opioid treatment has failed to significantly relieve the patient's pain and improve functionality. The patient has a diagnosis that is related to a somatic or visceral pain etiology. ? ?? I reviewed with the patient the potential risks and side effects with the use of? opioid medications including but not limited to respiratory depression,? sedation, and even . I verified the patient has access to naloxone should? these effects occur. I advised the patient to avoid the use of any other? sedation substances including alcohol, THC, and benzodiazepines while? taking opioid medications due to the risk of compounding side effects and? detrimental outcomes. I reviewed the [employer], pain treatment agreement, urine? drug screen, and opioid start talking forms. The patient was advised to let? their family know they had Naloxone in case they would need to administer? the medication.? ?? A drug screen was completed within the last year, and no aberrancies were noted regarding their use of controlled substances. The patient understands they are subject to the terms and conditions of the pain contract that they have signed. ? ?? I have checked an [place] report on this patient today and there are no aberrancies noted in the prescribing history.? (5) Muscle spasm: (6) Cervical postlaminectomy syndrome: Plan right AC joint injection with Dr Landa consider future repeat trigger point injections, patient found great benefit to prior TPI and is finding ongoing benefit continue current medication regimen, tolerating well without side effects pt has a TENS unit at home, encouraged to utilize f/u with Dr Landa
== END 2023-09-02 08:52 | disposition home or self-care (01) ==
LOC: PM 08:52
PROVIDERS: PCP Family Medicine; Visit Provider Nurse Practitioner
DX: M19.011 Primary osteoarthritis, right shoulder (principal); M47.816 Spondylosis without myelopathy or radiculopathy, lumbar region; Z79.891 Long term (current) use of opiate analgesic; M62.838 Other muscle spasm; M96.1 Postlaminectomy syndrome, not elsewhere classified
CPT/HCPCS: G0463

== ENCOUNTER 2023-09-10 09:59 | Outpatient (OUT) | payer MEDICARE, SELFPAY ==
--- NOTE | 2023-09-10 10:06 | XR_ITS ---
The [address] [address] Patient Name: MARY DIAZ MRN: [id number] date: 1950 Sex: M Assigned Patient Location: LAB Current Patient Location: LAB Accession/Order Number: [id number] Exam Date: 09/10/2023 10:09 Report Date: 09/10/2023 12:12 At the request of: YOLANDE MONTERROSO Procedure: XR chest 2V PROCEDURE: XR chest 2V DATE: 09/10/2023 9:09 AM CDT COMPARISONS: 10/05/2022 CLINICAL INDICATION: 73 years Male COPD Mild FINDINGS: The cardiomediastinal silhouette and pulmonary vasculature are within normal limits. There is evidence of chronic lung changes. There is no evidence of consolidating infiltrates to suggest pneumonia. There is no evidence of pleural effusion or pneumothorax. XR/XR chest 2V IMPRESSION: Chronic lung changes also documented on previous CT of the chest from 04/18/2022. No evidence of acute abnormalities Electronically authenticated by: KLEBER REYES Date: 09/10/2023 12:12
--- OUTSIDE RECORDS SUMMARY | 2023-09-10 10:08 | XMS_ITS | CCD ---
Author Organization [facility] Care Team Providers Care Juke Box Servicer Name Role Phone MD Yolande Staley Primary Care Provider [phone] MD Lionel Carrington Attending Provider Yolande Staley Primary Care Physician [phone] Leidy Plummer Unavailable Unavailable MD Yolande Staley Primary Care Provider [phone] MD Lionel Carrington Attending Provider Zoran Chavez Unavailable DR NELLY HERRERA Admitting Unavailable ABBRADHA, DR VILLEGAS Attending Unavailable HOY ., DR LANIER Primary Care Unavailable ABBAS, DR VILLEGAS Consulting Unavailable HOY ., DR LANIER Primary Care Unavailable CARRINGTON ., DR FLOWERS Consulting Unavailable CARRINGTON ., DR FLOWERS Admitting Unavailable CARRINGTON ., DR FLOWERS Attending Unavailable GIEDRAITIS, ANDRIUS Admitting Unavailable HOY ., DR LANIER Primary Care Unavailable GIEDRAITIS, ANDZOHAIBUS Attending Unavailable HOY ., DR LANIER Primary Care Unavailable CARRINGTON ., DR FLOWERS Consulting Unavailable CARRINGTON ., DR FLOWERS Admitting Unavailable CARRINGTON ., DR FLOWERS Attending Unavailable SCOTT, DR MEEHAN Admitting Unavailable SCOTT, DR MEEHAN Attending Unavailable SEBASTIAN, DR ALLI Burgos Consulting Unavailable HOY ., DR LANIER Primary Care Unavailable JAMAICA GONZALEZ Consulting Unavailable SCOTT, DR MEEHAN Consulting Unavailable KRISS .DR LANIER Consulting Unavailable HOY ., DR LANIER Admitting Unavailable HOY ., DR LANIER Primary Care Unavailable HOY ., DR LANIER Attending Unavailable MARAVILLA ., DR FATEMEH Higginbotham Consulting Unavailable MAGGIE, DR SOCORRO Zapata Consulting Unavailable PARTHA HYATT Consulting Unavailable SCOTT, DR MEEHAN Attending Unavailable ROSA ELENAY ., DR LANIER Primary Care Unavailable SCOTT, [...] Unavailable HOY ., DR LANIER Attending Unavailable BROWNSOCORRO Consulting Unavailable CARRINGTON ., DR FLOWERS Consulting [...] Primary Care Unavailable HOY ., DR LANIER Admitting Unavailable WEST, DR SOCORRO Zapata Consulting Unavailable CARRINGTON ., DR FLOWERS Consulting Unavailable CARRINGTON ., DR LIONEL Delgado Unavailable CARRINGTON ., DR FLOWERS Attending Unavailable [...] DR FLOWERS Consulting Unavailable CARRINGTON ., DR LIONEL Delgado Unavailable CARRINGTON ., DR FLOWERS Attending Unavailable HOY ., DR LANIER Primary Care Unavailable MD Yolande Staley Primary Care Provider [phone] MD Zoran Chavez Attending Provider [phone] CARRINGTON, Lionel R Attending Unavailable CARRINGTON, Lionel [...] Admitting Unavailable CARRINGTON, Lionel R Referring Unavailable Gieditis , Andsammie Kilgore Attending Unavailable Giedraitis , Andrius Kilgore Attending Unavailable Giedraitis , Andrius Kilgore Attending Unavailable Giedraitis , Andrius Kilgore Attending Unavailable Giedrabruno NOBLE, Duncanrius Kilgore Attending Unavailable MD Yolande Staley Primary Care Provider [phone] LIDA Lowery Attending Provider Yolande Staley Primary Care Unavailable Esther Lowery Admitting Unavailable Esther Lowery Attending Unavailable Yolande Staley Primary Care Unavailable Esther Lowery Admitting Unavailable Esther Lowery Attending Unavailable Yolande Staley Primary Care Unavailable Zoran Chavez Admitting Unavailable Zoran Chavez Attending Unavailable Allergies Allergy Classification Reported Allergen(s) Allergy Type Date of Onset Reaction(s) Facility (9 sources) Acetaminophen; 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: [acetaminophen] Drug Allergy 0 Itching, Itching agitated, Itching agitated, [facility] (20 sources) Codeine; 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: [Codeine] Drug Allergy 4 [facility] (9 sources) oxyCODONE; 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: [oxycodone] Drug Allergy 0 Itching, agitated, Itching, agitated, [facility] (16 sources) Acetaminophen / oxyCODONE; 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: [acetaminophen-oxyc odone] [facility]ergy [facility] Comment on above: pt states this does not work for pt, pt is not allergic to vicodin (4 sources) cyclobenzaprine Drug Allergy 4 itching [facility] (4 sources) HYDROcodone Drug Allergy 4 anxiety [facility] (4 sources) tiZANidine Drug Allergy 4 hives [facility] (3 sources) Acetaminophen / HYDROcodone; 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: [Vicodin] Drug Allergy [facility] Repository (2 sources) Acetaminophen / oxyCODONE Drug Allergy [facility] Repository (1 source) atorvastatin Drug Allergy [facility] Rep[facility] (2 sources) tiZANidine Drug Allergy [facility] Rep[facility] (1 source) Acetaminophen / oxyCODONE; 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: [Percocet 5/325] Drug Allergy [facility] Repository (1 source) cyclobenzaprine Drug Allergy 4 [facility] Repository (1 source) HYDROcodone Drug Allergy [address] [place] [address] Repository (1 source) tiZANidine Drug Allergy [address] [place] [address] Repository Medications Current Medications Medication Drug Class(es) [...] Start: 09-19-2021 take 2 tablets by mo [facility] twice daily carvedilol 6.25 mg Tab 12.5 [...] 07, 2019 12:00am April 19, 2020 7:04am Ipkdzhhlzok-Pftwygsgr-Oijswi er (8 sources) Anticholinergic, Corticosteroid, beta2-Adrenergic Agonist Start: 08-07-2019 Whbdobndaot-Xflasqfrq-Qpcyxh er (Trelegy Ellipta) 100-62.5-25 mcg Blister With [...] omeprazole 40 mg Cap-EC (2 sources) Start: 03-04-20 15 take 1 capsule by mouth once [...] hours Cephalexin Discontinued 500 MG PO Q12H 01 01February 16, 2022 11:00pm August 12, 2023 11:08am Start: 02-17-2022 take 500 mg by mouth every twelve hours Cephalexin Active 500 MG PO Q12H 14 February 17, 2022 12:00am Start: 02-17-2022 take 500 mg by mouth every twelve hours Cephalexin Active 500 MG PO Q12H 01 01February 17, 2022 12:00am ciprofloxacin 500 mg oral tablet (10 sources) Quinolone Antimicrobial Start: 01-20-2023 take 1 tablet by mouth once daily Cipro 500 mg Tab 500 mg = 1 tab(s), Oral, Daily, take one tab day before procedure and one tab after procedure, # 2 tab(s), Refills(s) 0, Pharmacy: [facility]/pharmacy #[id number], 170, cm, 01/20/23 10:45:00 EDT, Height/Length Dosing, 83.5, kg, 01/20/23 10:45:00 EDT, Weight Dosing Start Date: 01/20/23 Status: Ordered Start: 12-31-2022 take 1 tablet by barry th once daily Cipro 500 mg Tab 500 mg = 1 tab(s), Oral, Daily, Take 1 tablet the day before the procedure and 1 tablet after the procedure, # 6 tab(s), Refills(s) 0, Pharmacy: [facility]/pharmacy #[id number], 170, cm, 09/22/22 12:23:00 EDT, Height/Length Dosing, 78, kg, 02/24/22 10:53:00 EDT, W... Start Date: 12/31/22 Status: Ordered Start: 07-02-2022 take 1 tablet by barry th once daily Cipro 500 mg Tab 500 mg = 1 tab(s), Oral, Daily, Take 1 tablet the day before the procedure and 1 tablet after the procedure, # 6 tab(s), Refills(s) 0, Pharmacy: [facility]/pharmacy #[id number], 170, cm, 02/24/22 10:53:00 EDT, Height/Length Dosing, 78, kg, 09/06/22 10:53:00 EDT, W... Start Date: 07/02/22 Status: Ordered Start: 11-05-2021 take 1 tablet by barry th once daily Cipro 500 mg Tab 500 mg = 1 tab(s), Oral, Daily, Take 1 tab at nighttime prior to the day of procedure, then 1 tab right after the procedure, # 2 tab(s), Refills(s) 0, Pharmacy: [facility]/pharmacy #[id number], 170, cm, 11/05/21 11:37:00 EDT, Height/Length Dosing, 78, kg, 11/05/21... Start Date: 11/05/21 Status: Ordered diazePAM 5 mg oral tablet (8 sources) Benzodiazepine Start: 04-19-2020 End: 10-17-2021 take 5 mg by mouth four times daily Diazepam Discontinued 5 MG PO Four times daily 40 April 18, 2020 11:00pm October 17, 2021 11:30am doxycycline hyclate 100 mg oral capsule (1 source) Tetracycline-class Drug Start: 04-12-2023 take 1 capsule by mouth twice daily doxycycline hyclate 100 mg Cap 100 mg = 1 cap(s), Oral, BID, Take 1 capsule the day before the procedure and 1 capsule after the procedure, # 2 cap(s), Refills(s) 0, Pharmacy: [facility]/pharmacy #[id number], 188, cm, 02/10/23 14:22:00 [...] period., # 30 tab(s), Refills(s) 3, Pharmacy: [id number], 170, cm, 02/24/22 10:53:00 EDT, Height/Length Dosing, 78, kg, 02/24/22 10:53:00 EDT, Weight Dosing Start Date: 07/05/22 Status: Ordered Start: 09-19-2021 sildenafil 100 mg Tab 100 mg = 1 tab(s), Oral, Daily, Take 1 pill 30 minutes prior to sexual relations, # 30 tab(s), Refills(s) 3, Pharmacy: [id number], 170, cm, 09/19/21 10:16:00 EDT, [...] a surgery d one radical prostectomy at [facility] Cancer of prostate (20 sources) Personal [...] region] Episodic Other aftercare (1 source) Other termination clerk (current) drug therapy; 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: [OTH CORRECTION CURRENT DRUG THERAPY] Onset: 3 Episodic Other [...] conon 08-29-2023 MR cervical spine wo/w con [facility] Main [place] [address] [place] [address] MRI Report Signed Patient: Mary Diaz MR#: [id number] : 1950 Acct:[id number] Age/Sex: 73 / M ADM Date: 08/28/23 Loc: MR Room: Type: [facility] Attending Dr: Esther HILTON Copies to: [...] Lupe Campos M.D.08/29/2023 1:06 PM Dictation Location: [place] [address] Transcribed By: [facility] 08/29/23 1306 Dictated By: Lupe Campos MD 08/29/23 1254 Signed By: 08/29/23 1306 [facility] ISTAT XRay CREon 08-28-2023 Creatinine [Mass/Vol] 1.2 mg/dL Normal 0.6-1.3 [facility] Comment on above: Result Comment: ER/E SD physician is notified/shown all ISTAT results. Critical values may be confirmed by laboratory testing if deemed necessary by ER attending doctor. Performed By: #### I SCRE #### [facility] [address] [place] [address] ISTAT GFR > 60.0 [facility] Comment on above: Result Comment: PERF ORMED BY: [place] [address] PATHOLOGIST COLLABORATIVE PHYSICIAN JENARO FLOREZ M.D. Performed By: #### I SCRE #### [place] [id number] [facility] XR cervical spine LAT/FLX/EX Ton 08-12-2023 XR cervical spine LAT/FLX/EXT [facility] [place] [address] XRay Report Signed Patient: Mary Diaz MR#: [id number] : 1950 Acct:[id number] Age/Sex: 73 / M ADM Date: 08/12/23 Loc: XD Room: Type: [facility] Attending Dr: Esther Lowery NP-C Copies to: LIDA Flynn Ordering Provider: LIDA [...] Kenny Leahy M.D.08/12/2023 3:29 PM Dictation Location: [place] [address] Transcribed By: [facility] 08/12/23 1529 Dictated By: Kenny Leahy DO 08/12/23 1528 Signed By: 08/12/23 1529 Normal [facility] XR lumbar spine 6V w bending on 08-12-2023 XR lumbar spine 6V w bending [facility] Main [place] [id number] XRay Report Signed Patient: Mary Diaz MR#: [id number] : 1950 Acct:[id number] Age/Sex: 73 / M ADM Date: 08/12/23 Loc: XD Room: Type: [facility] Attending Dr: Esther BASILIOC Copies to: LIDA [...] Kenny Leahy M.D.08/12/2023 3:28 PM Dictation Location: [place] [address] Transcribed By: [facility] 08/12/23 1528 Dictated By: Kenny Leahy DO 08/12/23 1526 Signed By: 08/12/23 1528 [facility] Reminderson 06-28-2023 Reminders - From: Loretta Simons To: EU - Recalls Carrington; Cc: Loretta Simons; Sent: 06/28/2023 10:52:09 EST Show up: 09/20/2023 10:52:00 EDT Subject: Cysto/6 mo Due Date/Time: 10/11/2023 10:52:00 EDT Reminder/Recall Patient is due in October 2023 for 6 month cysto/fish/cytol, PSA (bt ck) Normal [facility] UroVysion Fish and Urine Cyt o ([facility])on 05-26-2023 UVFISH & UC Revision Information Invalid Interpretation Code [facility] Comment on above: Result Comment: Jimbo ection Reason -[ To Nur, 05/26/23 - 14:52 ] Corrected report issued to include PMS/PWS. The diagnosis remains unchanged. Correction Notes - Performed By: #### 1 [id number] #### [facility] [address] [place] [address] Consent for Procedure/Surger yon 04-27-2023 Consent for Procedure/Surgery [id number] #1.00TIFF Normal [facility] Consent for Treatmenton Consent for Treatment [id number] #1.00TIFF Normal [facility] IntraOperative Documentson 1 06-27-2022 IntraOperative Documents [id number] #1.00TIFF Normal [facility] Main OR Intraoperative Recor don 04-27-2023 Main OR Intraoperative Record IntraOp Document Type FTURO Summary Primary Physician: Lionel CARRINGTON MD Finalized Date/Time: 04/27/23 11:02:57 Pt. Name: MARY DIAZ/Sex: 1950 Male Med Rec #: [id number] Physician: Lionel CARRINGTON MD Financial #: [id number] Pt. Type: O Room/Bed: / Admit/Disch: 04/27/23 [...] Nanci Luna Role Performed Surgeon - Primary Hog Slaughterer - Primary Scrub - Primary Time In [...] - Clean-Contaminated Last Modified By: Edgard ZELAYA, PAULINA, Cheryl 04/27/23 11:01:00 General Case Data FTURO [...] By: PAULINA Rene RN, Ruthann 04/27/23 11:02 [facility] Main OR Preoperative Recordo n 04-27-2023 Main OR Preoperative Record Holding Area Document Type FTURO Summary Primary Physician: Lionel CARRINGTON MD Finalized Date/Time: 04/27/23 10:26:02 Pt. Name: MARY DIAZ/Sex: 1950 Male Med Rec #: [id number] Physician: Lionel CARRINGTON MD Financial #: [id number] Pt. Type: O Room/Bed: / Admit/Disch: 04/27/23 [...] Complaints of Pain: No Skin Integrity Intact, [place]uck[place], Warm, & Dry Vitals - EU Blood Pressure 167/96 Pulse 76 bpm Respirations 20 br/min SPO2 97 % Last Modified By: Avani Costello LPN 04/27/23 10:25:57 General Comments: Temp 36.7 Finalized By: Avani Costello LPN Document Signatures Signed By: Avani Costello LPN 04/27/23 10:26 Normal [facility] Operative Reporton Operative Report Patient: MARY DIAZ [...] a surveillance cystoscopy in 6 months.. Normal [facility] Comment on above: Result Comment: Elec tronically Signed By: DEVONTE NOBLE, Lionel Gama.br\Date and Time Signed: 04/27/23 11:04 EST Outpatient Surgery Discharge Instructionon 04-27-2023 Outpatient Surgery Discharge Instruction [id number] #1.00TIFF Normal [facility] Reminderson 04-27-2023 Reminders - From: Loretta Simons To: EU - Recalls Devonte; Cc: Loretta Simons; Sent: 03/05/2023 14:06:16 EDT Show up: 07/22/2023 14:06:00 EST Subject: Cysto/fish/cytol, Due Date/Time: 08/09/2023 14:06:00 EST Reminder/Recall Patient is due in August 2023 for 4 month cysto/fish/cytol (bt ck), ? PSA Pt will be due in October 2023 for 6 month cysto Normal [facility] UroVysion Fish and Urine Cyt o ([facility])on 04-27-2023 [facility] Method of Extraction Voided Normal [facility] Comment on above: Performed By: #### 1 [id number] #### [facility] [address] [place] [address] [facility] Number of Jars 1 Invalid Interpretation Code [facility] Comment on above: Performed By: #### 1 [id number] #### [facility] [address] [place] [address] [facility] Specimen Urine Normal [facility] Comment on above: Performed By: #### 1 [id number] #### [facility] [address] [place] [address] [facility] Type of Service Technical Only Normal [facility] Comment on above: Performed By: #### 1 [id number] #### [facility] [address] [place] [address] Outside Colonoscopyon 2022 Outside Colonoscopy [id number] #1.00CD:127 [facility] Reminderson 03-16-2023 Reminders - From: Stephanie Fletcher LPN To: N - Clinical; Sent: 03/16/2023 07:57:36 EDT Show up: 02/08/2028 07:00:00 EDT Subject: colonoscopy recall Due Date/Time: 03/10/2028 07:00:00 EDT Reminder/Recall Patient due for surveillance colonoscopy 03/10/2028 due to history of colonic polyps. [facility] Reminderson 03-05-2023 Reminders - From: Loretta Simons [...] be due in August 2023.LG new thread [facility] Consent for Procedure/Surger yon 02-11-2023 Consent for Procedure/Surgery [id number]# 1.00CD:127 [facility] Ambulatory Visit Summaryon 0 02-10-2023 Ambulatory Visit [...] NOBLE, Lionel Burgos Where: [facility] Normal [facility] Lab Reportson 02-03-2023 Lab Reports [id number] #1.00CD:127 Normal [facility] Physician Referralon 023 Physician Referral [id number] #1.00CD:127 Normal [facility] UroVysion Fish and Urine Cyt o ([facility])on 02-03-2023 [facility] Revision Information Invalid Interpretation Code [facility] Comment on above: Result Comment: Jimbo ection Reason -[ To Nur, 02/03/23 - 12:32 ] Corrected report issued to update PMS/PWS. The diagnosis remains unchanged. Correction Notes - Performed By: #### 1 [id number] #### [facility] [address] [place] [address] Lab Reportson 01-29-2023 Lab Reports [id number] #1.00CD:127 Normal [facility] Operative Reporton 3 Operative Report [id number] #1.00CD:127 Normal [facility] Ambulatory Visit Summaryon 0 01-20-2023 Ambulatory Visit [...] NOBLE, Qamar Burgos Where: General Surgery [facility] [place] [facility] [address] [place] [address]- \.br\ You Need to Schedule the Following Appointments\.br \ Follow Up with DEVONTE NOBLE, Lionel Burgos, URL When: \.br\ Comments:\.br\ sched cysto\.br\ Where:\.br\ [facility] [address]\.br\ [place] [address]-\.br\ [phone]\.br\ Medications\.br\ What How Much When Instructions\.br \ New ciprofloxacin (Cipro 500 mg Tab) 1 Tablets By Mouth Every day take one tab day before procedure and one tab after procedure Pickup at [facility]/pharmacy #[id number]\.br\ Unchanged sildenafil (sildenafil 100 mg Tab) 1 [...] if questions or concerns \.br\ Pharmacy Information\.br\ [facility]/pharmacy #[id number]: [address], [place] [phone]\.br\ Allergies\.br\ Percocet 5/325\.br\ codeine (hives/rashes)\. br\ Problems\.br\ [...] these instructions at home:\.br\ ? \.br\ Take avvz-rqj-bshuubt and prescription medicines only as told by [...] Where to find more information\.br\ ? \.br\ [employer] (ACS): cancer.org\.br\ ? \.br\ National Cancer [place] (NCI): cancer.gov\.br\ Contact a health care provider [...] based on the stage of your cancer.\.br\ [facility] Ambulatory Visit Summary MARY DIAZ :1950 Visit [...] [facility] [place] [facility] [address] [place] [address]- \.br\ You Need to Schedule the Following Appointments\.br \ Follow Up with Lionel CARRINGTON MD, URL When: \.br\ Comments:\.br\ sched cysto\.br\ Where:\.br\ [facility] [address]br\ [place] [address].br\ [phone]\.br\ Medications\.br\ What How Much When Instructions\.br \ [...] these instructions at home:\.br\ ? \.br\ Take nijl-sii-eiabhfs and prescription medicines only as told by [...] Where to find more information\.br\ ? \.br\ [employer] (ACS): cancer.org\.br\ ? \.br\ National Cancer [place] (NCI): cancer.gov\.br\ Contact a health care provider [...] to you by your health care pro [facility] Pathology Noteon 01-20-2023 Pathology Note [id number] #1.00CD:127 Normal [facility] Patient Educationon 01-21-20 Patient Education Oncology Bladder [...] Follow these instructions at home: ? Take clim-jjh-ubgmlqo and prescription medicines only as told by [...] important. Where to find more information ? [employer] (ACS): cancer.org ? National Cancer [place] (NCI): cancer.gov Contact a health care provider [...] wi (more content not included)... [facility] Urology Office/Clinic Noteon 01-20-2023 Urology Office/Clinic [...] URL [facility] [address], [place] [phone] Additional Instructions: sched cysto Patient Education Bladder [...] Arthroplasty of th (more content not included)... [facility] Comment on above: Result Comment: Elec tronically Signed By: Lionel CARRINGTON MD\.br\Date and Time Signed: 01/20/23 11:40 EDT\.br\Electronically Co-Signed By: Lilo Zhou\Date and Time Co-Signed: 01/20/23 11:37 EDT Lab Reportson 01-11-2023 Lab Reports [id number] #1.00CD:127 [facility] Consent for Procedure/Surger yon 01-05-2023 Consent for Procedure/Surgery [id number]#1.00CD:127 [facility] Consent for Treatmenton 12-19 Consent for Treatment [id number] #1.00CD:127 Normal [facility] IntraOperative Documentson 0 01-05-2023 IntraOperative Documents [id number]#1.00CD:127 Normal [facility] Main OR Intraoperative Recor don 01-05-2023 Main OR Intraoperative Record IntraOp Document Type FTURO Summary Primary Physician: Lionel CARRINGTON MD Finalized Date/Time: 01/05/23 10:57:53 Pt. Name: MARY DIAZ/Sex: 1950 Male Med Rec #: [id number] Physician: Lionel CARRINGTON MD Financial #: [id number] Pt. Type: O Room/Bed: / Admit/Disch: 01/05/23 [...] Zora Luna Role Performed Surgeon - Primary Hog Slaughterer - Primary Scrub - Primary Time In 01/05/23 10:38:00 01/05/23 10:38:00 01/05/23 10:38:00 Time Out 01/05/23 10:54:00 01/05/23 10:54:00 01/05/23 10:54:00 Procedure CYSTOSCOPY LOCAL(.) CYSTOSCOPY LOCAL(.) CYSTOSCOPY LOCAL(.) Comments Last Modified By: Edgard RN, CNOR, Edgard RN, CNOR, Edgard RN, EDITHOR, Cheryl 01/05/23 Cheryl 01/05/23 Cheryl 01/05/23 10:51:02 10:51:02 10:51:02 Surgical Procedures FTURO Entry 1 Procedure Description Procedure CYSTOSCOPY LOCAL Modifiers . Surgeon Description CYSTO Primary Procedure Yes Primary Surgeon Lionel CARRINGTON MD 01/05/23 10:41:00 Stop 01/05/23 10:50:00 Anesthesia Type [...] PAULINA Rene RN, Ruthann 01/05/23 10:57 Normal [facility] Main OR Preoperative Recordo n 01-05-2023 Main OR Preoperative Record Holding Area Document Type FTURO Summary Primary Physician: Lionel CARRINGTON MD Finalized Date/Time: 01/05/23 10:43:08 Pt. Name: EMILYMARY./Sex: 1950 Male Med Rec #: [id number] Physician: Lionel CARRINGTON MD Financial #: [id number] Pt. Type: O Room/Bed: / Admit/Disch: 01/05/23 [...] Edgard ZELAYA, Cheryl GALLARDO 01/05/23 10:43 Normal [facility] Operative Reporton Operative Report Patient: MARY DIAZ [...] tumor has developed in these areas.. Normal [facility] Comment on above: Result Comment: Elec tronically Signed By: DEVONTE NOBLE, Lionel Ernandez\Date and Time Signed: 01/05/23 10:59 EDT UroVysion Fish and Urine Cyt o ([facility])on 01-05-2023 [facility] Method of Extraction Bladder Wash Normal [facility] Comment on above: Performed By: #### 1 [id number] #### [facility] [address] [place] [address] [facility] Number of Jars 1 Invalid Interpretation Code [facility] Comment on above: Performed By: #### 1 [id number] #### [facility] [address] [place] [address] [facility] Specimen Urine Normal [facility] Comment on above: Performed By: #### 1 [id number] #### [facility] [address] [place] [address] [facility] Type of Service Technical Only Normal [facility] Comment on above: Performed By: #### 1 [id number] #### [facility] [address] [place] [address] MR lumbar spine wo conon MR lumbar spine wo con [facility] [place] [address] MRI Report Signed Patient: Mary Diaz MR#: [id number] : 1950 Acct:[id number] Age/Sex: 72 / M ADM Date: 01/01/23 Loc: MR Room: Type: [facility] Attending Dr: Zoran Chavez MD Copies to: [...] Jamaica Alas M.D.01/01/2023 2:48 PM Dictation Location: [facility] Transcribed By: [facility] 01/01/23 144 Dictated By: Jamaica Alas II, MD 01/01/231440 Signed By: 01/01/231447 [facility] Retail - [employer] - Clinical Note [id number] #[id number]:[id number] Normal [facility] XR CSPINE MIN 4 VIEWSon XR CSPINE [...] by: ALLI CORTES Date: 2022-10-23 11:53 Normal [facility] XR LSPINE W_OBLS AND FLEX_EX Ton 10-23-2022 XR LSPINE W_OBLS AND FLEX_EXT EXAM: XR LSPINE W_OBLS AND FLEX_EXT HISTORY: Low back pain COMPARISON: None. TECHNIQUE: 2 views Findings/impression: Retrolisthesis of L2 over L3 by 4 mm. Multilevel endplate degenerative changes, disc disease, and anterior spurring. Calcified atherosclerotic disease of aorta. No acute fracture. Electronically authenticated by: JAMAICA GONZALEZ Date: 2022-10-23 13:18 Normal [facility] BNPon 10-06-2022 Natriuretic peptide B (Bld) [Mass/Vol] 844.0 pg/mL Normal <=900.0 [facility] Comment on above: Performed By: #### C VDTBH #### [facility] [address] [address] [address] Johnna Dixon CBC AUTO DIFFon 10-06-2022 BASO # 0.0 103/ul Normal 0.0-0.1 [facility] Comment on above: Performed By: #### C BC #### [facility] [address] [address] [address] Johnna Dixon Basophils/100 WBC (Bld) 0.0 % Critically low 0.2-2.0 [facility] Comment on above: Performed By: #### C BC #### [facility] [address] [address] [address] Johnna Dixon EO # 0.0 103/ul Normal 0.0-0.7 [facility] Comment on above: Performed By: #### C BC #### [facility] [address] [place] [address] Dr. Johnna Dixon Eosinophils/100 WBC (Bld) 0.0 % Critically low 0.9-7.0 [facility] Comment on above: Performed By: #### C BC #### [facility] [address] [place] [address] Dr. Johnna Dixon Erythrocyte distribution width (RBC) [Ratio] 13.9 % Normal 11.0-15.0 [facility] Comment on above: Performed By: #### C BC #### [facility] [address] [place] [address] Dr. Johnna Dixon Hematocrit (Bld) [Volume fraction] 33.6 % Critically low 42.0-54.0 [facility] Comment on above: Performed By: #### C BC #### [facility] [address] [place] [address] Dr. Johnna Dixon Hemoglobin (Bld) [Mass/Vol] 11.1 g/dL Critically low 14.0-18.0 [facility] Comment on above: Performed By: #### C BC #### [facility] [address] [place] [address] Dr. Johnna Dixon IG # 0.03 10e3/ul Normal 0.00-0.03 [facility] Comment on above: Performed By: #### C BC #### [facility] [address] [place] [address] Dr. Johnna Dixon IG % 0.5 % Normal 0.0-0.5 [facility] Comment on above: Performed By: #### C BC #### [facility] [address] [place] [address] Dr. Johnna Dixon LYMPH # 0.7 103/ul Critically low 1.2-3.8 [facility] Comment on above: Performed By: #### C BC #### [facility] [address] [place] [address] Dr. Johnna Dixon Lymphocytes/100 WBC (Bld) 11.5 % Critically low 20.5-60.0 [facility] Comment on above: Performed By: #### C BC #### [facility] [address] [place] [address] Dr. Johnna Dioxn MANUAL DIFF REQ NO Normal [facility] Comment on above: Performed By: #### C BC #### [facility] [address] [place] [address] Dr. Johnna Dixon MCH (RBC) [Entitic mass] 31.0 pg Normal 25.9-34.0 [facility] Comment on above: Performed By: #### C BC #### [facility] [address] [place] [address] Dr. Johnna Dixon MCHC (RBC) [Mass/Vol] 33.0 g/dL Normal 29.9-35.2 [facility] Comment on above: Performed By: #### C BC #### [facility] [address] [place] [address] Dr. Johnna Dixon MCV (RBC) [Entitic vol] 93.9 fL Normal 80.0-94.0 [facility] Comment on above: Performed By: #### C BC #### [facility] [address] [place] [address] Dr. Johnna Dixon MONO # 0.3 103/ul Normal 0.3-0.8 [facility] Comment on above: Performed By: #### C BC #### [facility] [address] [place] [address] Dr. Johnna Dixon Monocytes/100 WBC (Bld) 4.5 % Normal 1.7-12.0 [facility] Comment on above: Performed By: #### C BC #### [facility] [address] [place] [address] Dr. Johnna Dixon NEUT # 5.0 103/ul Normal 1.4-6.5 [facility] Comment on above: Performed By: #### C BC #### [facility] [address] [place] [address] Dr. Johnna Dixon Neutrophils/100 WBC (Bld) 83.5 % Critically high 43.0-75.0 [facility] Comment on above: Performed By: #### C BC #### [facility] [address] [place] [address] Dr. Johnna Dixon Platelet mean volume (Bld) [Entitic vol] 10.3 fL Normal 9.5-13.5 [facility] Comment on above: Performed By: #### C BC #### [facility] [address] [place] [address] Dr. Johnna Dixon PLT 184 103/ul Normal 150-450 [facility] Comment on above: Performed By: #### C BC #### [facility] [address] [place] [address] Dr. Johnna Dixon RBC 3.58 106/ul Critically low 4.70-6.10 [facility] Comment on above: Performed By: #### C BC #### [facility] [address] [place] [address] Dr. Johnna Dixon WBC 6.0 103/ul Normal 4.0-11.0 [facility] Comment on above: Performed By: #### C BC #### [facility] [address] [place] [address] Dr. Johnna Dixon PROF 14(COMP METB)on 023 Albumin [Mass/Vol] 2.7 g/dL Critically low 3.4-5.0 [facility] Comment on above: Performed By: #### C VDTBH #### [facility] [address] [address] [address] Johnna Dixon Albumin/Globulin [Mass ratio] 0.9 {ratio} Normal [facility] Comment on above: Performed By: #### C VDTBH #### [facility] [address] [address] [address] Johnna Dixon ALP [Catalytic activity/Vol] 32 U/L Critically low 46-116 [facility] Comment on above: Performed By: #### C VDTBH #### [facility] [address] [address] [address] Johnna Dixon ALT [Catalytic activity/Vol] 19 U/L Normal 16-63 [facility] Comment on above: Performed By: #### C VDTBH #### [facility] [address] [place] [address] Dr. Johnna Dixon Anion gap [Moles/Vol] 14.0 mmol/L Normal [facility] Comment on above: Performed By: #### C VDTBH #### [facility] [address] [place] [address] Dr. Johnna Dixon AST [Catalytic activity/Vol] 12 U/L Critically low 15-37 [facility] Comment on above: Performed By: #### C VDTBH #### [facility] [address] [place] [address] Dr. Johnna Dixon Bilirubin [Mass/Vol] 0.6 mg/dL Normal 0.2-1.0 [facility] Comment on above: Performed By: #### C VDTBH #### [facility] [address] [place] [address] Dr. Johnna Dixon Calcium [Mass/Vol] 8.3 mg/dL Critically low 8.5-10.1 [facility] Comment on above: Performed By: #### C VDTBH #### [facility] [address] [place] [address] Dr. Johnna Dixon Chloride [Moles/Vol] 107 mmol/L Normal 98-107 [facility] Comment on above: Performed By: #### C VDTBH #### [facility] [address] [address] [address] Johnna Dixon CO2 [Moles/Vol] 24.9 mmol/L Normal 21.0-32.0 [facility] Comment on above: Performed By: #### C VDTBH #### [facility] [address] [address] [address] Johnna Dixon Creatinine [Mass/Vol] 1.20 mg/dL Normal 0.70-1.30 [facility] Comment on above: Performed By: #### C VDTBH #### [facility] [address] [address] [address] Johnna Dixon EGFR-AF SOUTH AFRICAN >60 Normal >=60 [facility] Comment on above: Performed By: #### C VDTBH #### [facility] [address] [place] [address] Dr. Johnna Dixon EGFR-NON AF SOUTH AFRICAN 60 mL/min/1.73m2 Normal >=60 [facility] Comment on above: Performed By: #### C VDTBH #### [facility] [address] [place] [address] Dr. Johnna Dixon Globulin (S) [Mass/Vol] 2.9 g/dL Normal [facility] Comment on above: Performed By: #### C VDTBH #### [facility] [address] [place] [address] Dr. Johnna Dixon Glucose [Mass/Vol] 153 mg/dL Critically high 74-106 [facility] Comment on above: Performed By: #### C VDTBH #### [facility] [address] [place] [address] Dr. Johnna Dixon Potassium [Moles/Vol] 3.9 mmol/L Normal 3.5-5.1 [facility] Comment on above: Performed By: #### C VDTBH #### [facility] [address] [place] [address] Dr. Johnna Dixon Protein [Mass/Vol] 5.6 g/dL Critically low 6.4-8.2 [facility] Comment on above: Performed By: #### C VDTBH #### [facility] [address] [place] [address] Dr. Johnna Dixon Sodium [Moles/Vol] 142 mmol/L Normal 136-145 [facility] Comment on above: Performed By: #### C VDTBH #### [facility] [address] [place] [address] Dr. Johnna Dixon Urea nitrogen [Mass/Vol] 14.0 mg/dL Normal 7.0-18.0 [facility] Comment on above: Performed By: #### C VDTBH #### [facility] [address] [place] [address] Dr. Johnna Dixon Urea nitrogen/Creatinine [Mass ratio] 11.7 mg/mg Normal [facility] Comment on above: Performed By: #### C VDTBH #### [facility] [address] [place] [address] Dr. Johnna Dixon CBC AUTO DIFFon 10-05-2022 BASO # 0.0 103/ul Normal 0.0-0.1 [facility] Comment on above: Performed By: #### S PUTGS #### [facility] [address] [place] [address] Dr. Johnna Dixon Basophils/100 WBC (Bld) 0.2 % Normal 0.2-2.0 [facility] Comment on above: Performed By: #### S PUTGS #### [facility] [address] [place] [address] Dr. Johnna Dixon EO # 0.0 103/ul Normal 0.0-0.7 [facility] Comment on above: Performed By: #### S PUTGS #### [facility] [address] [place] [address] Dr. Johnna Dixon Eosinophils/100 WBC (Bld) 0.2 % Critically low 0.9-7.0 [facility] Comment on above: Performed By: #### S PUTGS #### [facility] [address] [place] [address] Dr. Jonhna Dixon Erythrocyte distribution width (RBC) [Ratio] 14.1 % Normal 11.0-15.0 [facility] Comment on above: Performed By: #### S PUTGS #### [facility] [address] [place] [address] Dr. Johnna Dixon Hematocrit (Bld) [Volume fraction] 39.9 % Critically low 42.0-54.0 [facility] Comment on above: Performed By: #### S PUTGS #### [facility] [address] [place] [address] Dr. Johnna Dixon Hemoglobin (Bld) [Mass/Vol] 12.8 g/dL Critically low 14.0-18.0 [facility] Comment on above: Performed By: #### S PUTGS #### [facility] [address] [place] [address] Dr. Johnna Dixon IG # 0.01 10e3/ul Normal 0.00-0.03 [facility] Comment on above: Performed By: #### S PUTGS #### [facility] [address] [place] [address] Dr. Johnna Dixon IG % 0.2 % Normal 0.0-0.5 [facility] Comment on above: Performed By: #### S PUTGS #### [facility] [address] [place] [address] Dr. Johnna Dixon LYMPH # 0.7 103/ul Critically low 1.2-3.8 [facility] Comment on above: Performed By: #### S PUTGS #### [facility] [address] [place] [address] Dr. Johnna Dixon Lymphocytes/100 WBC (Bld) 14.3 % Critically low 20.5-60.0 [facility] Comment on above: Performed By: #### S PUTGS #### [facility] [address] [place] [address] Dr. Johnna Dixon MANUAL DIFF REQ NO Normal [facility] Comment on above: Performed By: #### S PUTGS #### [facility] [address] [place] [address] Dr. Johnna Dixon MCH (RBC) [Entitic mass] 30.7 pg Normal 25.9-34.0 [facility] Comment on above: Performed By: #### S PUTGS #### [facility] [address] [address] [address] Johnna Dixon MCHC (RBC) [Mass/Vol] 32.1 g/dL Normal 29.9-35.2 [facility] Comment on above: Performed By: #### S PUTGS #### [facility] [address] [address] [address] Johnna Dixon MCV (RBC) [Entitic vol] 95.7 fL Critically high 80.0-94.0 [facility] Comment on above: Performed By: #### S PUTGS #### [facility] [address] [place] [address] Dr. Johnna Dixon MONO # 0.6 103/ul Normal 0.3-0.8 [facility] Comment on above: Performed By: #### S PUTGS #### [facility] [address] [place] [address] Dr. Johnna Dixon Monocytes/100 WBC (Bld) 12.5 % Critically high 1.7-12.0 [facility] Comment on above: Performed By: #### S PUTGS #### [facility] [address] [place] [address] Dr. Johnna Dixon NEUT # 3.6 103/ul Normal 1.4-6.5 [facility] Comment on above: Performed By: #### S PUTGS #### [facility] [address] [place] [address] Dr. Johnna Dixon Neutrophils/100 WBC (Bld) 72.6 % Normal 43.0-75.0 [facility] Comment on above: Performed By: #### S PUTGS #### [facility] [address] [place] [address] Dr. Johnna Dixon Platelet mean volume (Bld) [Entitic vol] 9.5 fL Normal 9.5-13.5 [facility] Comment on above: Performed By: #### S PUTGS #### [facility] [address] [place] [address] Dr. Johnna Dixon PLT 213 103/ul Normal 150-450 [facility] Comment on above: Performed By: #### S PUTGS #### [facility] [address] [address] [address] Johnna Dixon RBC 4.17 106/ul Critically low 4.70-6.10 [facility] Comment on above: Performed By: #### S PUTGS #### [facility] [address] [address] [address] Johnna Dixon WBC 5.0 103/ul Normal 4.0-11.0 [facility] Comment on above: Performed By: #### S PUTGS #### [facility] [address] [address] [address] Johnna Dixon CULTURE BLOODon 10-05-2022 Microscopic examination of blood, culture Culture Observations: NO GROWTH AT 5 DAYS. Normal [facility] Comment on above: Performed By: #### B LDCX2 #### [facility] [address] [place] [address] Dr. Johnna Dixon Microscopic examination of blood, culture Culture Observations: NO GROWTH AT 5 DAYS. Normal [facility] Comment on above: Performed By: #### S PUTGS #### [facility] [address] [place] [address] Dr. Johnna Dixon CULTURE SPUTUMon 10-05-2022 CULTURE SPUTUM Culture Observations: NORMAL RESPIRATORY JONATAN. Normal [facility] Comment on above: Performed By: #### S PUTGS #### [facility] [address] [place] [address] Dr. Johnna Dixon Covid-19 PCR (CVDTB)on 09-19 SARS-CoV-2 (COVID-19) RNA REX+probe Ql (Unsp spec) Not detected Normal NOT DETECTED [facility] Comment on above: Result Comment: This test is not yet approved or cleared by the [place] FDA. When there are no FDA-approved or cleared tests available, and other criteria are met, FDA can make tests available under an emergency access mechanism called an Emergency Use Authorization (EUA). The EUA for this test is supported by the [place] of Health and Human Service's (HHS's) declaration [...] SARS-CoV-2. Performed By: #### C VDTB #### [facility] [address] [place] [address] Dr. Johnna Dixon LACTATE/LACTIC ACIDon 2022 Lactate [Moles/Vol] 1.2 mmol/L Normal 0.4-2.0 [facility] Comment on above: Performed By: #### L ACT #### [facility] [address] [place] [address] Dr. Johnna Dixon Lactate [Moles/Vol] 2.4 mmol/L Critically high 0.4-2.0 [facility] Comment on above: Performed By: #### L ACT #### [facility] [address] [place] [address] Dr. Johnna Dixon Lab Reportson 10-05-2022 Lab Reports [id number] #1.00CD:127 Normal [facility] PROF CHEM 8 (BAS METB)on Anion gap [Moles/Vol] 12.6 mmol/L Normal [facility] Comment on above: Performed By: #### B MP #### [facility] [address] [place] [address] Dr. Johnna Dixon Calcium [Mass/Vol] 8.9 mg/dL Normal 8.5-10.1 [facility] Comment on above: Performed By: #### B MP #### [facility] [address] [place] [address] Dr. Johnna Dixon Chloride [Moles/Vol] 106 mmol/L Normal 98-107 [facility] Comment on above: Performed By: #### B MP #### [facility] [address] [address] [address] Johnna Dixon CO2 [Moles/Vol] 25.8 mmol/L Normal 21.0-32.0 [facility] Comment on above: Performed By: #### B MP #### [facility] [address] [address] [address] Johnna Dixon Creatinine [Mass/Vol] 1.41 mg/dL Critically high 0.70-1.30 [facility] Comment on above: Performed By: #### B MP #### [facility] [address] [address] [address] Johnna Dixon EGFR-AF SOUTH AFRICAN >60 Normal >=60 [facility] Comment on above: Performed By: #### B MP #### [facility] [address] [address] [address] Johnna Dixon EGFR-NON AF S[place] AFRICAN 50 mL/min/1.73m2 Critically low >=60 [facility] Comment on above: Performed By: #### B MP #### [facility] [address] [address] [address] Johnna Dixon Glucose [Mass/Vol] 111 mg/dL Critically high 74-106 T [facility] Comment on above: Performed By: #### B MP #### [facility] [address] [address] [address] Johnna Dixon Potassium [Moles/Vol] 3.4 mmol/L Critically low 3.5-5.1 [facility] Comment on above: Performed By: #### B MP #### [facility] [address] [address] [address] Johnna Dixon Sodium [Moles/Vol] 141 mmol/L Normal 136-145 [facility] Comment on above: Performed By: #### B MP #### [facility] [address] [address] [address] Johnna Dixon Urea nitrogen [Mass/Vol] 17.0 mg/dL Normal 7.0-18.0 [facility] Comment on above: Performed By: #### B MP #### [facility] [address] [place] [address] Dr. Johnna Dixon Urea nitrogen/Creatinine [Mass ratio] 12.1 mg/mg Normal [facility] Comment on above: Performed By: #### B MP #### [facility] [address] [place] [address] Dr. Johnna Dixon SPUTUM GRAM STAINon 10-06-19 23 COMMENTS Normal [facility] Comment on above: Performed By: #### S PUTGS #### [facility] [address] [address] [address] Johnna Dixon DIPHTHEROIDS Normal [facility] Comment on above: Performed By: #### S PUTGS #### [facility] [address] [place] [address] Dr. Johnna Dixon EPITHELIALS <[address] [facility] Comment on above: Performed By: #### S PUTGS #### [facility] [address] [place] [address] Dr. Johnna Dixon FUNGAL ELEMENTS Normal [facility] Comment on above: Performed By: #### S PUTGS #### [facility] [address] [address] [address] Johnna Dixon GRAM NEG BACILLI FEW [facility] Comment on above: Performed By: #### S PUTGS #### [facility] [address] [place] [address] Dr. Johnna Dixon GRAM NEG DIPPLOCOCCI Normal [facility] Comment on above: Performed By: #### S PUTGS #### [facility] [address] [place] [address] Dr. Johnna Dixon GRAM POS BACILLI [facility] Comment on above: Performed By: #### S PUTGS #### [facility] [address] [address] [address] Johnna Dixon GRAM POSITIVE COCCI FEW Normal [facility] Comment on above: Performed By: #### S PUTGS #### [facility] [address] [place] [address] Dr. Johnna Dixon WBC (Bld) [#/Vol] 10*3/uL [facility] Comment on above: Performed By: #### S PUTGS #### [facility] [address] [place] [address] [address] [address] Johnna Dixon SYMPTOMATIC COVID-19 ANTIGEN on 10-05-2022 EUA Statement SEE BELOW Normal [facility] Comment on above: Result Comment: This [...] sooner. Performed By: #### C VDAGS #### [facility] [address] [place] [address] Dr. Johnna Dixon SARS-CoV-2 (COVID-19) RNA REX+probe Ql (Unsp spec) Negative Normal NEGATIVE [facility] Comment on above: Performed By: #### C VDAGS #### [facility] [address] [place] [address] [id number] [address] Johnna Dixon XR CHEST 1 Von [...] SOCORRO SERRANO Date: 2022-10-05 11:44 Normal [facility] Coding Summary.on 04-13-2023 Coding Summary. CD:[id number] Ww+PGhlYWQ+AO1YKIVaD 32wiROsdU2sM7HQLYxPL ywgQVBQTElOSyIgbmFtZ V6gnUHtVEGv IC8+TK5yQSXiXmlmwBQo h1Z9xRT0J50ldo6eFQkh jCW5DNCiFpRvzogue3uv jKi5PTbhMcquXlKb BHWhmK50ACG0qQ41Eg98 wHMzeOGhr2fupTw7KrOb GWRgFIU4uIqcJLvwd8Xd FFSoC23pjHUvw9Z7 IGNvbGxhcHNlOyBlbXB0 jJ1sXVffydzww2drmgic Zoy1go02fTRck6L1mUQ4 H2QcylJ6UYUmcHYa MkdplAHXdE8mqfjxe9ml ktxqVvAbZMTvWGv2AWw9 UUUfzKtzGzXcVP62CTO1 WWSfzsNlS6HrBUZr wTzaQtT5z8J5Fi6JO1JC EbmlW8WPYHZEMJiroQM+ GL08uq08B5XsNdjcLhi3 JUOyPSJ4oHQ7fB4h FICeJCygb4B0mRE1B5Fb fcYfkl7tw6rpIAVeYNoc F46dgBOmn2N1XHOkqJT8 JRCunNyoUfBlyB49 Oyc+ZOYcqGyqp0PmXrxu f4odz2iicNb8QqezWDTv afSzgSkxDOX1n8JvZt3g NZBhnZD5oYQ0vU2s VeWvZsX0EUftQ051CiRc aQLdDimqA07aG6YitEH+ CYTyCud1MHSmxEzfNB3f K3TpDCMakywixCEz tRynWM9eIPKxorwgTQJk xW4rHRAhW5h7OeHpDaD9 ASmgU8BzVZYyuaaaGz04 kT6sVkNiCwX6KVqb Z2WjfrW5KZFcjJIkAAyt ZDD0G68vj6U3ISCvQTSy FOB3qUP7uV8jxOwrsgeb bGVmdDsgdmVydGlj EMklHMnxF741TPStxMbn PkNvZGluZyBEYXRlOiAg MDQvMTMvMjAyMzwvdGQ+ BZTnTAW6iKrxBAQe kOWbUTgeRn2nuCavdOkl QE7rIBKiwqbzZHKyuJ6v DVIrqPGutQnsTP3mYDNs odayz540LtDtKFT6 ENDesPSzH5GvsD4mAoLn APVuVENrW5EaoPIbQVwu M772IEziLxT4RIVpfnFd M6PrRUBwjSshQaA1 k5D5Dl3Aj8WtoeamP2Ef gGHaAmMmQnzoKCn6D7Up PjwvdHI+QC89GXLdKK24 DEy1GBL4cZtgFHog NDUxC2UiiE5oVjYmTGRb ZGRkOyc+PHRhYmxlIHdp ZHRoPScxMDAlJyBzdHls ND3eTk6hEQYxNFVr kKczaSGcAlJyt5rzTEDl OAwgTE9fwFvmE4AxdAO7 TDWzy6v2Gj35K56nL4Ua dXA+AKTrmCY4qSR0 bX7zRlCvJdJ3XJevM595 VxFrdOVwZaduh8ape2ih fNl6ZcX2REMfjqTxvSlg EZC6q3NcKp89W00x IHdpZHRoPSIxNSUiIHZh vKoxwb6dqN8zQg0+PGNv iRV5bQX4yZ1lKiOxSzF6 SLwdA386YuUqkIGz Lyhgz4uci2kvoBo0KlSh PXKrgjWorMdcZDX5b5Wc Rz92X3ZcrRasg9RrSwd9 pw22cYVns5P5qCP5 I1BkTQNbekspxMVnoIop KT7jIYPifygeKXEabT9z DVKpF0o4TiVeXaW0IAmf G9HuocU0JXEqfRXg NLYvhUUUvX8dsrrrv5hq kfglTlTbYGGuNQo1XPh0 ZICojZpsMeJxNNT3IlS7 CUY1rRMrbX4tiLjl pzoboR8gEnt+PWK1uPSl dOTWDZ5bVopyaIB+PHRk QLW0yTqvMIapLACsiV2i KWKeU0l9VkOwPqK2 YWssW2VplzR1DQNylQHk MDUohOKAmC1ednqzw4po utqiIqQlDJTvUUq8MAs0 LWFsaWduOiBsZWZ0 XgG6UZP4oUOjbP3mdQtu pklyrB3bEzo+QmlydGgg EER0FHe7B1WqUxg1BNKv mAsuZC9afMChDAei Ko8rpBrcnIyfNL8nKSHu wggou764BmJyf3oeNWEi nIMcOXkkMUX9M45ey5V0 DJAvDMRpODZ7cAR6 vU7kpYjpgertkDMdkBuz oqYekFmyJFhgLDfdK247 JVDrwMcuOjQiSHb0S3Tg Dme9RRLlnVwbSE1s bWUiVMbeVw0xhJapiPtl GC5vHBQkvloky280TpUi d0moTCLzrECxRDliYTI0 O92kq9I8ZPXdPOJg HBU1cVT8hW2xpXnnpsui bGVmdDsgdmVydGljYWwt WCfhM449YRLeiIqrSdGz lGu2W5IkWet3SXPe dRtqFM0wxPDqFFjkFp8y rAccbMqjEQ6sTKBhspgv l484GxZye4ykSIQmvSTs AQjnHVI2U02gj6U4 CVOlLFAkGLS5xLU1gV1t bGlnbjogbGVmdDsgdmVy hLgmBIpzSNyvL055ELLq cDsnPlBhdGllbnQg RMeqGYg0F2RxXgsyfZC+ OC00EPQlKI23aLYquMQn o3vgqYw9CuGlDLSlLHE6 dKqwSHvrh8TrNGXr W68ivYGfl7I2QKSfxWvy hYLhUkOsoSM0yM9zUSnt bvepc4wbdysjQkwss7uf zv47gT20V18vOPli ZHRoPSIzMCUiIHZhbGln ic7acC8xKw8+PGNvbCB3 rSW2nF3cQAZlKgR3MFrw L067CtJhaTYeEqqf w4fcn5mxoQb6OdJ7OBSq daKoqAimOIC9l1UqJv87 H54mEJokECDgNEHvWAAn WYQsxOlezm9leW5l Ii8+YJQkkRY9oAI9aU5x AsXbIvS6TAikK312ZhWg iGElKnraF97zD6IvnMA+ YKJnBdg2QCCkaCdd SW5hfOVxCNkzRh7jAMM6 YkVsZtSyNNzuL1PsXWMt ezmyfktxxDO7UZMnQVJf eS06Ur3wnEogVQQb hFAPuF2zzdzht5izvlcc TlJgLDTyCJm2DSz2ACOo mNowVvOjPQL0FiY7SDJ5 aZMphD6asNmblhdo vB4tO0UxBNOysaxzNh54 nW0tKrOaLlG4AYehJje+ P6gIZxtDXUZbHIzMNWZG AA92J8HgNbg0CIZg lAxlOG9nhZOqVWfcWc3u xWkheFzeIJ3pKHXzbbax IQNqcS7zQUNvaTBqjIxy IN8lRCFfudkni380 GdOuPJT3RYPquVWwF8Wj kC3cKsSbMSGcFEBfP4Ue rSXnDVzbV919ATmlEuB7 LOBnuqJfA4JcBZCk hYjaUvM1a8M0Uv0xXL4h QD7tAWUbBA17ET96iDWg f5Q7vEO3W5KhGWItjsng miepcDQ0UDGdANJu mC89wFHbLInzTl5lz6G1 y773YVLqLUJbaG56Lt3t gEqmPAQvtKMTgD8qrnny w2lfuqjbObYiRPMh VSk8RQq8TNNarMoxCfUg GDR4ClC1ANG6dPCkeS5r oHlnnrnjwN7nPiw+NzEg HSBbwsV9Z6LzDmr9 UOJjaGqxUM6lmFQfBZrp Ca0buKhhoHolEX1wFYGz lmdtNVIblK4mXYPccZCs kKdvUD9mGHFljisx x182WoOiTPC6YHMtcCHk W4TabR3dBdFjGMUnFPNu R3NvrPNzJIijZ470BKrh JzV3ICAbgaFfP6Sm AKWuqQagEoU6o0Y6Zt3G AMllKI98AJ58uIGvi7C8 lAW2M5DiVKHuhuirlaqs iZI7BKQkRLFkrK46 dDEfLZyzYk0sz1B5s758 MPBmAIEgwA76Li4koAum RYNnpIVPnB7rksgrv6tb cjogIzAwMDAwMDt0 EMa9MIRtyQatOtExIEJ3 OkH1SOX2sTWzgR3chAah txvzkY8yAes+H8Q7zEC2 aWVudDwvdGQ+PC90 lo79G8NeOjlsVrh8JSVq ZJN7vEB3lP6eHJJtNCdo r6H1tDP2E3RswaRslb1j d5yjNFFmBAzrL75e rMBoz8F7WRJcuFG3YITx mTmzHhSwnF92Biw+PGNv wZnji9TbJckbn7vyh3ap zTp6LzEkAXEpgwWk hNtqXBV8v1WbIy94N19y IHdpZHRoPSIzMCUiIHZh nFoebp0fxV9lBw3+PGNv sUR9gYP2cX1nDiWb OoJ8URzcO213InTzwGDr Qqrxo3set9znnNg5KpOo OGPyciEczLvbZRE9y6Op Xu54O2PdvZjcm0Iv Mzk9oq35oFRbt0Z4pOZ4 W9OkSYBicflkdOYauGhi VF0mKDSlvnbmLMLjvF6p ZETvT7r8NyFhDfH8 OErxB4SrstJ8AKZneYTq ETVbeLBTnO0yebruc5hx vjvrHsZeSZVzOXt3ZLl2 LWFsaWduOiBsZWZ0 QaU8GEW5sXOmnL0niFjs txyejH7iHmb+YNf8m5dt rUPvMP9chDP1UJ41JQ72 eRNmt9A6hWD2B2Qz BQHurhxxuuhjbQV5ABHn MJSgfY79Ij9uzKssGv9f RKSmGFJ5ZLWrsTEwA4Cp jI6jHaIoQQVrGNVk O0LnjEAmCIazP175OGkl VpH0NHIssvNoS4MyOUBe xCabXxC7a5D8Ht1LIK99 MB82QV34fSQlb5O7 lBA1G5JpRWZxbhwuzmpd dGP2ASXuIUNxpR33Hn1l pXwvFw3bIBGbDRD2NDNm xSUxJ5KqtU4zNwRy ABQkOSOmB4EcyHHmTZwc A592TTfuUmQ6UOEwqeZp D4AxTMTfpEwzClA4i1E3 Fb0HVd12UZ60NC91 gNZaj6R7eNH4K2PdHVAe ebsmqqwwgDE0SCWqYSLz uD72Vw1jyYauNr2pDMEq UNT0MMIjzACyX4Uu dR0aOlTuRDNqNLJuP2It sUDeGCnmE079TWhyCuR8 QLXhsnEpA8CtQIQebGvg OwJ7n4S2Cj8DRKai lta6U6IlVzjqcDJ+PC90 SPMlKM22vAAeqIEhm1gy wGo3DhHcPHRkFAL6mPji GQpor9YrLZLaV33j zNIbg6U2 (more content not included)... [facility] Consent for Procedure/Surger yon 09-29-2022 Consent for Procedure/Surgery [id number]# 1.00CD:127 [facility] Consent for Treatmenton 09-19 Consent for Treatment [id number] #1.00CD:127 [facility] IntraOperative Documentson 0 09-29-2022 IntraOperative Documents [id number]# 1.00CD:127 [facility] Main OR Intraoperative Recor don 09-29-2022 Main OR Intraoperative Record IntraOp Document Type FTURO Summary Primary Physician: Lionel CARRINGTON MD Finalized Date/Time: 09/29/22 10:53:58 Pt. Name: MARY DIAZ/Sex: 1950 Male Med Rec #: [id number] Physician: Lionel CARRINGTON MD Financial #: [id number] Pt. Type: O Room/Bed: / Admit/Disch: 09/29/22 [...] Nanci Luna Role Performed Surgeon - Primary Hog Slaughterer - Primary Scrub - Primary Time In [...] Modified By: PAULINA Rene RN, Cheryl 09/29/22 10:53:45 General Case Data FTURO [...] PAULINA Rene RN, Ruthann 09/29/22 10:53 Normal [facility] Main OR Preoperative Recordo n 09-29-2022 Main OR Preoperative Record Holding Area Document Type FTURO Summary Primary Physician: Lionel CARRINGTON MD Finalized Date/Time: 09/29/22 10:52:30 Pt. Name: MARY DIAZ/Sex: 1950 Male Med Rec #: [id number] Physician: Lionel CARRINGTON MD Financial #: [id number] Pt. Type: O Room/Bed: / Admit/Disch: 09/29/22 [...] No Pain Comment: na Skin Integrity Intact, [place], Warm, & Dry Vitals - EU Blood Pressure 148/82 Pulse 53 bpm Respirations 16 br/min SPO2 96 % RN Reviewed Yes Last Modified By: PAULINA Rene RN, Ruthann 09/29/22 10:52:28 General Comments: temp:36.5 Finalized By: PAULINA Rene RN, Ruthann Document Signatures Signed By: Iram Thomas LPN 09/29/22 10:28 PAULINA Rene RN, Ruthann 09/29/22 10:52 Normal [facility] Operative Reporton Operative Report Patient: MARY DIAZ [...] with antibiotic coverage, Follow up arranged. Normal [facility] Comment on above: Result Comment: Elec tronically Signed By: DEVONTE NOBLE, Lionel Ernandez\Date and Time Signed: 09/29/22 10:57 EDT Urine Cytology ([facility])on 0 09-28-2022 Urine Cytology Diagnosis Info Invalid Interpretation Code [facility] Comment on above: Result Comment: A:Ur ine,Urine:Voided Interpretation - MicroScopic Description - Adequacy - Gross Description Site ID:A color Yellow fixative Alcohol Specimen designated Urine received in alcohol preservative and labeled with the patient?s name, consists of 40ml clear yellow fluid. Electronically signed by : on: 09/28/2022 09:14:07 Performed By: #### 1 [id number] ####[facility] [address] [place] [address] US SINGLE QUAD RT UPPERon US SINGLE [...] by: SOCORRO HUFFMAN Date: 2022-09-24 09:46 Normal [facility] AMYLASEon 09-21-2022 Amylase [Catalytic activity/Vol] 78 U/L Normal 25-115 [facility] Comment on above: Performed By: #### C VDTBH #### [facility] [address] [place] [address] Dr. Johnna Dixon CBC AUTO DIFFon 09-21-2022 BASO # 0.0 103/ul Normal 0.0-0.1 [facility] Comment on above: Performed By: #### C VDTBH #### [facility] [address] [place] [address] Dr. Johnna Dixon Basophils/100 WBC (Bld) 0.5 % Normal 0.2-2.0 [facility] Comment on above: Performed By: #### C VDTBH #### [facility] [address] [place] [address] Dr. Johnna Dixon EO # 0.1 103/ul Normal 0.0-0.7 [facility] Comment on above: Performed By: #### C VDTBH #### [facility] [address] [place] [address] Dr. Johnna Dixon Eosinophils/100 WBC (Bld) 1.9 % Normal 0.9-7.0 [facility] Comment on above: Performed By: #### C VDTBH #### [facility] [address] [place] [address] Dr. Johnna Dixon Erythrocyte distribution width (RBC) [Ratio] 14.5 % Normal 11.0-15.0 [facility] Comment on above: Performed By: #### C VDTBH #### [facility] [address] [place] [address] Dr. Johnna Dixon Hematocrit (Bld) [Volume fraction] 39.1 % Critically low 42.0-54.0 [facility] Comment on above: Performed By: #### C VDTBH #### [facility] [address] [place] [address] Dr. Johnna Dixon Hemoglobin (Bld) [Mass/Vol] 12.8 g/dL Critically low 14.0-18.0 [facility] Comment on above: Performed By: #### C VDTBH #### [facility] [address] [place] [address] Dr. Johnna Dixon IG # 0.05 10e3/ul Critically high 0.00-0.03 [facility] Comment on above: Performed By: #### C VDTBH #### [facility] [address] [place] [address] Dr. Johnna Dixon IG % 0.7 % Critically high 0.0-0.5 [facility] Comment on above: Performed By: #### C VDTBH #### [facility] [address] [place] [address] Dr. Johnna Dixon LYMPH # 2.0 103/ul Normal 1.2-3.8 [facility] Comment on above: Performed By: #### C VDTBH #### [facility] [address] [place] [address] Dr. Johnna Dixon Lymphocytes/100 WBC (Bld) 27.4 % Normal 20.5-60.0 [facility] Comment on above: Performed By: #### C VDTBH #### [facility] [address] [place] [address] Dr. Johnna Dixon MANUAL DIFF REQ NO Normal [facility] Comment on above: Performed By: #### C VDTBH #### [facility] [address] [place] [address] Dr. Johnna Dixon MCH (RBC) [Entitic mass] 31.3 pg Normal 25.9-34.0 [facility] Comment on above: Performed By: #### C VDTBH #### [facility] [address] [place] [address] Dr. Johnna Dixon MCHC (RBC) [Mass/Vol] 32.7 g/dL Normal 29.9-35.2 [facility] Comment on above: Performed By: #### C VDTBH #### [facility] [address] [place] [address] Dr. Johnna Dixon MCV (RBC) [Entitic vol] 95.6 fL Critically high 80.0-94.0 [facility] Comment on above: Performed By: #### C VDTBH #### [facility] [address] [address] [address] Johnna Dixon MONO # 0.5 103/ul Normal 0.3-0.8 [facility] Comment on above: Performed By: #### C VDTBH #### [facility] [address] [place] [address] Dr. Johnna Dixon Monocytes/100 WBC (Bld) 6.9 % Normal 1.7-12.0 [facility] Comment on above: Performed By: #### C VDTBH #### [facility] [address] [place] [address] Dr. Johnna Dixon NEUT # 4.7 103/ul Normal 1.4-6.5 [facility] Comment on above: Performed By: #### C VDTBH #### [facility] [address] [place] [address] Dr. Johnna Dixon Neutrophils/100 WBC (Bld) 62.6 % Normal 43.0-75.0 [facility] Comment on above: Performed By: #### C VDTBH #### [facility] [address] [place] [address] Dr. Johnna Dixon Platelet mean volume (Bld) [Entitic vol] 9.3 fL Critically low 9.5-13.5 [facility] Comment on above: Performed By: #### C VDTBH #### [facility] [address] [place] [address] Dr. Johnna Dixon PLT 235 103/ul Normal 150-450 [facility] Comment on above: Performed By: #### C VDTBH #### [facility] [address] [place] [address] Dr. Johnna Dixon RBC 4.09 106/ul Critically low 4.70-6.10 [facility] Comment on above: Performed By: #### C VDTBH #### [facility] [address] [place] [address] Dr. Johnna Dixon WBC 7.4 103/ul Normal 4.0-11.0 [facility] Comment on above: Performed By: #### C VDTBH #### [facility] [address] [place] [address] Dr. Johnna Dixon LIPASEon 09-21-2022 Lipase [Catalytic activity/Vol] 114.0 U/L Normal 73.0-393.0 [facility] Comment on above: Performed By: #### C VDAGS #### [facility] [address] [place] [address] Dr. Johnna Dixon LIVER PROFILEon 09-21-2022 Albumin [Mass/Vol] 3.9 g/dL Normal 3.4-5.0 [facility] Comment on above: Performed By: #### C VDTBH #### [facility] [address] [place] [address] Dr. Johnna Dixon Albumin/Globulin [Mass ratio] 1.6 {ratio} Normal [facility] Comment on above: Performed By: #### C VDTBH #### [facility] [address] [place] [address] Dr. Johnna Dixon ALP [Catalytic activity/Vol] 59 U/L Normal 46-116 [facility] Comment on above: Performed By: #### C VDTBH #### [facility] [address] [place] [address] Dr. Johnna Dixon ALT [Catalytic activity/Vol] 23 U/L Normal 16-63 [facility] Comment on above: Performed By: #### C VDTBH #### [facility] [address] [place] [address] Dr. Johnna Dixon AST [Catalytic activity/Vol] 8 U/L Critically low 15-37 [facility] Comment on above: Performed By: #### C VDTBH #### [facility] [address] [place] [address] Dr. Johnna Dixon BILI, CONJUGATED 0.1 mg/dL Normal 0.0-0.2 [facility] Comment on above: Performed By: #### C VDTBH #### [facility] [address] [place] [address] Dr. Johnna Dixon Bilirubin [Mass/Vol] 0.3 mg/dL Normal 0.2-1.0 [facility] Comment on above: Performed By: #### C VDTBH #### [facility] [address] [place] [address] Dr. Johnna Dixon Globulin (S) [Mass/Vol] 2.5 g/dL Normal [facility] Comment on above: Performed By: #### C VDTBH #### [facility] [address] [place] [address] Dr. Johnna Dixon Protein [Mass/Vol] 6.4 g/dL Normal 6.4-8.2 [facility] Comment on above: Performed By: #### C VDTBH #### [facility] [address] [place] [address] Dr. Johnna Dixon PROF CHEM 8 (BAS METB)on Anion gap [Moles/Vol] 13.4 mmol/L Normal [facility] Comment on above: Performed By: #### C VDTBH #### [facility] [address] [place] [address] Dr. Johnna Dixon Calcium [Mass/Vol] 8.9 mg/dL Normal 8.5-10.1 [facility] Comment on above: Performed By: #### C VDTBH #### [facility] [address] [place] [address] Dr. Johnna Dixon Chloride [Moles/Vol] 106 mmol/L Normal 98-107 [facility] Comment on above: Performed By: #### C VDTBH #### [facility] [address] [place] [address] Dr. Johnna Dixon CO2 [Moles/Vol] 25.6 mmol/L Normal 21.0-32.0 [facility] Comment on above: Performed By: #### C VDTBH #### [facility] [address] [place] [address] Dr. Johnna Dixon Creatinine [Mass/Vol] 1.21 mg/dL Normal 0.70-1.30 [facility] Comment on above: Performed By: #### C VDTBH #### [facility] [address] [place] [address] Dr. Johnna Dixon EGFR-AF SOUTH AFRICAN >60 Normal >=60 [facility] Comment on above: Performed By: #### C VDTBH #### [facility] [address] [address] [address] Johnna Dixon EGFR-NON AF SOUTH AFRICAN 59 mL/min/1.73m2 Critically low >=60 [facility] Comment on above: Performed By: #### C VDTBH #### [facility] [address] [address] [address] Johnna Dixon Glucose [Mass/Vol] 115 mg/dL Critically high 74-106 [facility] Comment on above: Performed By: #### C VDTBH #### [facility] [address] [address] [address] Johnna Dixon Potassium [Moles/Vol] 4.0 mmol/L Normal 3.5-5.1 [facility] Comment on above: Performed By: #### C VDTBH #### [facility] [address] [address] [address] Johnna Dixon Sodium [Moles/Vol] 141 mmol/L Normal 136-145 [facility] Comment on above: Performed By: #### C VDTBH #### [facility] [address] [address] [address] Johnna Dixon Urea nitrogen [Mass/Vol] 19.0 mg/dL Critically high 7.0-18.0 [facility] Comment on above: Performed By: #### C VDTBH #### [facility] [address] [address] [address] Johnna Dixon Urea nitrogen/Creatinine [Mass ratio] 15.7 mg/mg Normal [facility] Comment on above: Performed By: #### C VDTBH #### [facility] [address] [address] [address] Johnna Dixon Patient Educationon 09-22-19 Patient [...] if anything looks unusual. Men with a ygzoiy-vrac-mdlfhu risk for skin cancer may want to see a international specialist (gut snatcher) for an annual body check. Where to find more information ? National Cancer [place]: https://www.cancer.g ov/about-cancer/scre ening ? Centers for Disease Control and Prevention: https://www.cdc.gov/ cancer/dcpc/preventi on/screening.htm ? [employer]: https://www.cancer.o rg/latest-news/4-can uhe-xrfharvaz-fqtna- for-men.html Contact a health care (more content not included)... Normal [facility] Urine Cytology ([facility])on 0 09-21-2022 UC Method of Extraction Voided Normal [facility] Comment on above: Performed By: #### 1 [id number] ####[facility] [address] [place] [address] UC Number of Jars 1 Invalid Interpretation Code [facility] Comment on above: Performed By: #### 1 [id number] ####[facility] [address] [place] [address] Specimen Urine Normal [facility] Comment on above: Performed By: #### 1 [id number] ####[facility] [address] [place] [address] Type of Service Technical Only Normal [facility] Comment on above: Performed By: #### 1 [id number] ####[facility] [address] [place] [address] Ambulatory Visit Summaryon 0 08-17-2022 Ambulatory Visit [...] NOBLE, Lionel Burgos Where: [facility] Normal [facility] CREATININEon 08-04-2022 Creatinine [Mass/Vol] 1.31 mg/dL Critically high 0.70-1.30 [facility] Comment on above: Performed By: #### C JANIS #### [facility] [address] [address] [address] Johnna Dixon EGFR-AF SOUTH AFRICAN >60 Normal >=60 [facility] Comment on above: Performed By: #### C JANIS #### [facility] [address] [address] [address] Johnna Dixon EGFR-NON AF SOUTH AFRICAN 54 mL/min/1.73m2 Critically low >=60 [facility] Comment on above: Performed By: #### C JANIS #### [facility] [address] [place] [address] Dr. Johnna Dixon CTA NECK WO W [...] ALLI CORTES Date: 2022-08-04 14:04 Normal [facility] US CAROTID ART BILon 023 US [...] by: ALLI CORTES Date: 2022-07-28 12:00 Normal [facility] Ambulatory Visit Summaryon 0 07-20-2022 Ambulatory Visit Summary MARY DIAZ :1950 Visit Date:07/20/2022 Ambulatory Visit Instructions Your Diagnosis History of bladder cancer Tests Performed Urnls Dip Stick Auto w/o Microscopy POC 07528 Your Care Team Attending Physician - Lionel [...] AM EST With: Where: [facility] Normal [address] [place] [address] [place] [address]- \.br\ Medications\.br\ What How Much When Instructions\.br [...] Urnls Dip Stick Auto w/o Microscopy POC 32934 (07/20/2022)\.br \ POC Test Comments - UA prior to Mitomycin tx\.br\ Bilirubin Urine Dipstick - Negative\.br\ Blood Urine Dipstick - Negative\.br\ Glucose Urine Dipstick - Negative\.br\ Ketones Urine Dipstick - Negative\.br\ Leukocytes Urine Dipstick - Negative\.br\ Nitrite Urine Dipstick - Negative\.br\ Protein Urine Dipstick - Negative\.br\ Specific [place] Urine Dipstick - 1.020\.br\ Urine Appearance Urine [...] for.\.br\ Acid reflux\.br\ Cancer of prostate\.br\ \.br\ [facility] Consent for Procedure/Surger yon 07-15-2022 Consent for Procedure/Surgery [id number] #1.00CD:127 Normal [facility] Consent for Procedure/Surgery [id number] #1.00CD:127 Normal [facility] Uro[employer] FISH ([employer])on 0 07-15-2022 [employer]roVysion FISH Diagnosis Info Invalid Interpretation Code [facility] Comment on above: Result Comment: A:Ur ine,Urine:Bladder [...] on: 07/15/2022 15:42:11 Performed By: #### 1 [id number] #### [facility] [address] [place] [address] Coding Summary.on 07-08-2022 Coding Summary. CD:[id number]:[id number] Gh0bWw+PGhlYWQ+PE1FV GWlM26ehOAgeD0QV8nSM C5UTVBTVOQMZW0TTW7ov NT6RDapN9KtajSj DcswwBDrFV22BSv1UJB0 eHtgLQugaO4dmQDrG9w3 KjVdTY38pS77DElpBIZq MaA0PqOkwrrhbWNs W3mmMlJrzFXoVqq+PHRh YmxlIHdpZHRoPScxMDAl SdRocCsoXB3zXc0dBMFu LWNvbGxhcHNlOiBj j7geKIZbLGilBH7vmIpt D3DteJM6HRBgr9z4Rz49 dHI+REThDFU2mCdjEJnr g882SzTsp5viFWR5 gRMiIZuiHTJ7C30cw4F3 XJToWFKiICH6zRV9kX5q iNmxpyljD2LxjFDxYxJ4 ACI4hEObpK2pkKzl byaqmM1mHka+U44MDW3S GTSQYA6ZZsl3I2NxInzz dHI+EX61SOCvIM14aXQk eMXuo3orpHo0GxTo JUDjJGJ7pVahFKyxx3Rw KJVsL40hjONwc7Q2CRVq zNxmeYUmIlWsvPQ7jY1b HAhdyxlsp2thwhwc Vyioh9ceei91cO69R53g JPpjXJAlMNR4GNIdJMYk zTakiq2cgG8bIb0+IDxj k2djy6snpPz2LrCw EEZwopOhgPcpMUI3y3Lb Do15R0NjwVeci6WzLca2 ko31wVZhv7Q2hHX6VNsh VSUzfR2fYVyqPhG6 TBFfNtXhiP04gDKoDDun Du0jgGbutVpsIC6aGQKi udseIXEdjT9aGCHnpLQv iUnnNM6oTOEzizkx a462ObBrNNO5KLIruWBh P5IjxK5gJzAqZAWyKBUs P3UraUYhCMdgN259AXfn DmE9LONzydYwU5Mf NZKpwMamIbS5y4M9Bk5B o7BvmursFMX6MLjbHXNt QkF6KsWrLaO6P9YyLar0 CLStyPdhPN4lQ3Fj MNHuexjibrhcfQN2ULXn MAJkcP24eFGiPOrwIn4a x3M5d491QQWuWZXzrG28 Yp1ilTjsNMNaaOFV iU5fxlbpr7sjubsxGyRh HLGqOYy1ANn6WPMpiZdr GyAnSDF2ArG3ZUW2gCZm kQ3vrDstbpngeZ8h Oyc+G50skU7uKFL3HDC8 vwmtRGDwwxKsNW93VD92 Q1HgFphqdTHneYS+PGRp ohSlzHhlCY9pEwBd u6bxa4YuXRiyJ0RzJVWk BCrvPwy3NSMwNNU9cEB0 vR7pZTMxADinj7N0ePT0 X9MxzcZynl5sp7vy PDCrUEjoS25ifOUto7D2 XRBgvYL0NIZkgWqpUdZa sC71Zoh+DASgoAaeq9Os Muuei4jvn8jidGf4 IjMwJSIgdmFsaWduPSJ0 n1HgZp30Q22sEKjcWAJl PAGqTOVaOIZnhLzpze5y nI9lYl9+PGNvbCB3 wJJ8kR3wUQIgSeX8GRgq M609UzRjfAFqIumgo8ud m7mkmHn0MvPiVXYyfvYg mXkuBJA9k6UqHg10 E54oCMpqMKNmYBPpJKOz KVQshVhmur6wdH5zWt6+ MA9sb8tgbu17yY38uTA+ LZAmIDO0hAgwVGyx WZLchQ5rHCroUmL3ZSAz OrGmeY13bDIbHHoiAo6z aBjvyGhiVN5dWPDybkmi u612KnSdi4wyCHHh sSKtAUquGZL2A50fc5K2 IOHgMVMuJAB9fZK8bF3h bGlnbjogbGVmdDsgdmVy oVowKPvaUMcuH130 IHRvcDsnPlBhdGllbnQg NjGvMKk4L8WbEic5TMEs oQxvOY0nyHMxENpaNk2k aFdjwLoyXS9uOWPa zgbgu213DfGrw0yfRTMm aMSsIZzgNSW7H37io2U4 WCNqZRGhQVQ1sRE5zR2g bGlnbjogbGVmdDsg zlTstEnlRMexXEvlO054 IHRvcDsnPkJpcnRoIERh nQI7IM06GF28qPPnn7F7 jDQ2X6JgLXKdcpex hoxfmUD3HKGcPJZjuO12 As8pmUinBy9oECRlLNT2 RPHidZAtY7SprS7fVfVi DIVaQSIfK3TokIEg RFraJ803OQwdNhK5CPOe ztWcJ2OoWPYoxNgjGxV2 t3Q9Fm8GR4R5BL09JH18 fMAyw8I9fMZ0E3Nj PBIjntvhipuyxGN3BMIy VJYrjM12Ob0hnXjxVi3c CPVbQBV6MBMczCJpM9Oc xW9oUxRwNDEdBWQx R7IdkIJfTTykU586HLgh QmP2FDXoymBqX8DbYMMl aUrpRxW4a4G6Us0TVAd7 WK36SH83oFShs2Y1 qJE5I1VeRHWaakahhxns wFI2PTJcGEVpbB17Ag4e rOgxDu4zRFTiESA3FWKu vJAwS0GphS2mPhOe AIVaORJpJ4VhlSOlYMup S821ENvzVlS8IPUyvgFf P8GrSYLczUbwKuK7z4O0 Cp9GUWLiDV21CAD5 rST0TL95HY31G5FqFtrq dGFibGU+PHRhYmxlIHdp ZHRoPScxMDAlJyBzdHls EL1vJm6sRAWiXKXj aPfhyWJpWbBmd5feJMPy TSpaKZ2vwVliR6RtlVY6 RJHet2j3Bf84J48yY5Sh dXA+RIRvjHJ5xSU4 dQ5iWqVhYmE7BRfgM082 FaQsgNUmHwqqi4ufc4fo rOs9QrA0HJXregEoiIml WJU3k1PrHz93H18w IHdpZHRoPSIxNSUiIHZh lNzyer7ypU7uBw2+PGNv aEL3qEC1iG6wJxFfVjQ1 OVwnI883SjPvlPQq Jmhsu0ldd9xqqMg7FsYn KHIhdhWkiMtzGRS4n9Lv Nx64G6MarXsxu3QiKfl0 tj77dQQit7Q3eEK7 Z2HxPCPnkulzxQZakLgz CX1gKHYkxjwaALFldF2o DTRlK4n2PsTfVlB5FMpk K3SxrwU5CFYsaUQq YNhxIYN6C75na8A4QGYy NPQiAEG1tJN7iL7smVyd bjogbGVmdDsgdmVydGlj SFawBLmkB211LEZx pJnzKISaiE6zTWEvbDPb xAnhBM6vPNKuykkkYexY LK6RILLNHIJENM6MQeIG ZW45MZ84nNPus5S2 pEQ4E1ZrMQSdmxmmeluy mFK9BOOxVFPszT51zNMc NVikBv0fo9R6x302KCYj KWHxnZ64Kw1wcZsl VSFzlVJEuN0xwspin2zu kqhoHvSaRICjZBr1NRg6 HOIvuBjfYnBiWHD0HfS7 KWG3qAZkbV3obOyv hfmvmM0eYul+MDgvMTUv ZLd5WXqbdNZ+PHRkIHN0 iVfnQDsrMINliW7gXDMc Q2p6MrGiLcE5ULih F3LfKOCmpzqhTs76vV4w VsQgRxM2JOqnF0ScgrM2 SLWskBYfWLodUCP0K93f b1I2NWBqCEPjHOL8 oJS0oO3lcJwylpxqtNXe dDsgdmVydGljYWwtYWxp H001KAMiyMheOficIUnv OBWeYP01YB03iHKe v2I9eTJ5S9AlFUSqatwv cdrprQM5CEQqUAMqkL85 qKBqQAoqCs9hf7D0f972 ZUMiALPjaC38Yj2w zNibBZMjpNEFnT8ydkcf y6qzkpvpJwNqAGKsWSr9 NLz2TKGzeOihUyJiBWO7 TqH2UJF6tPFqeW9g uPfexmyzbK5yHpy+TWFs ZTwvdGQ+LZQwTUX2oOcy RCxrDOImaX9uAPGdA5u6 OyGcUkZ4OXatD4Up OZFkiddzGz45hI2uMzTj WuU1QIckY9LttrN2CCEl vIZuFDsbIDY7T52mp9E8 KXVxXIFhHYJ2gZL9 sD6zzIscorcrhDJynUna pbBziEurCUraLUxhL630 MFVknGxeDm82xKIrmXpn unU2Y3SxWvfybZD+ QO55HQLvIS95yRWtiTRh e7wguWw8DdIfSRNgTGR9 mYpuTPjzk4UqQVLnT52b xIGjj2A2XVUnuKju eYFxSxTzdQQ1jJ3aQAam wzgcw9qoiqrhJfmxw1sw iz15eF46E94nVTzkLJEh PSIzMCUiIHZhbGln ib0gdW4kDx1+PGNvbCB3 bFM7mS3wFvKcZaH8KBrw R985CfXbkPIiLdvyq1kp d8fqqJa8TkEmVCQe atPfnXxpHXP9r6ByUz38 T12tWSkkTYZqZCGqMOBt DDOzxQlfrz6meT4jKy3+ CO4vj8qyhi61sW81 dHI+RVRkYHX2dTuiLVgl FVUjyW4dMOnjLnS8QBAw LpMdwN23qIMqYBzwTk8x bQtslLgeXS3pKAEj vefrn891AhMnx9qmNVAy vMTnHKvpZQU8V50pq2Z9 VUPvTKDnNOB8pBU7bR2d bGlnbjogbGVmdDsg ljGmuSljOWsjJPyrU900 QGYcvFkbUiEyxJPsX1wf itLBBC2hObktpNK+PHRk HGR5aZblTQsmSNHy yQ9oDTZrS5s7EyKuCpN3 ROndO3DsvhR5VKKrnGZt SYLrqPCMmN7mznqte7jc cjogIzAwMDAwMDt0 CFg2ETOttGdaCeFmKJA2 UoW6JBT0uDEmdC0wzRvt jpbqbW8bQrb+RklOOjwv dGQ+BZFiBJY1ySmv CPrdVMGrdS2oZAFkY9d3 WdTtQiU2CZjoB3QgriO3 NSXzqHThBIYytYQIsY2v mltoe2olkhvrClGg TNWjDRl2XRf3KIMsgJzj ScSvPXJ6BkJ1TOQ1aIQn uN5sgLisrbawnN5hZzw+ TVJOOjwvdGQ+PHRk OFO9aMqeDAzhRXTkhT8f XZMoK2i7NqRbYwD1LKzg A5YbcoI7QNEeoUQgMCCn hIYUfR5bgcywb0gh pkqdTiHiLVKoRWh0CMw1 BADnzWnmFyHhRJE6XkN2 FJO6jQXrsB5fnBlxuupz dR1uMdn+QCF9JGD9 OG23YM23P8AzAqrthNAu bGU+PHRhYmxlIHdpZHRo CCfwICHeDoMuzOtrZY2r Lu2gZINlLIIkzOay cHNl (more content not included)... Normal [facility] Consent for Procedure/Surger yon 07-08-2022 Consent for Procedure/Surgery [id number]#1.00CD:127 Normal [facility] IntraOperative Documentson 0 07-08-2022 IntraOperative Documents [id number] 8#1.00CD:127 Normal [facility] Consent for Treatmenton 06-21 Consent for Treatment [id number] #1.00CD:127 [facility] Main OR Intraoperative Recor don 07-07-2022 Main OR Intraoperative Record IntraOp Document Type FTURO Summary Primary Physician: Lionel CARRINGTON MD Finalized Date/Time: 07/07/22 13:40:45 Pt. Name: MARY DIAZ/Sex: 1950 Male Med Rec #: [id number] Physician: Lionel CARRINGTON MD Financial #: [id number] Pt. Type: O Room/Bed: / Admit/Disch: 07/07/22 [...] Zora Luna Role Performed Surgeon - Primary Hog Slaughterer - Primary Scrub - Primary Time In [...] PAULINA Rene RN, Ruthann 07/07/22 13:40 Normal [facility] Main OR Preoperative Recordo n 07-07-2022 Main OR Preoperative Record Holding Area Document Type FTURO Summary Primary Physician: Lionel CARRINGTON MD Finalized Date/Time: 07/07/22 13:40:51 Pt. Name: EMILYMARY/Sex: 1950 Male Med Rec #: [id number] Physician: Lionel CARRINGTON MD Financial #: [id number] Pt. Type: O Room/Bed: / Admit/Disch: 07/07/22 [...] No Pain Comment: na Skin Integrity Intact, [place], Warm, & Dry Vitals - EU Blood [...] PAULINA Rene RN, Ruthann 07/07/22 13:40 Normal [facility] Operative Reporton Operative Report Patient: MARY DIAZ [...] then a repeat cystoscopy in September. Normal [facility] Comment on above: Result Comment: Elec tronically Signed By: DEVONTE NOBLE, Lionel Ernandez\Date and Time Signed: 07/07/22 10:51 EST [facility] ([facility])on 0 07-07-2022 UV Method of Extraction Bladder Wash Normal [facility] Comment on above: Performed By: #### 1 [id number] #### [facility] [address] [place] [address] UV Number of Jars 1 Invalid Interpretation Code [facility] Comment on above: Performed By: #### 1 [id number] #### [facility] [address] [place] [address] UV Specimen Urine Normal [facility] Comment on above: Performed By: #### 1 [id number] #### [facility] [address] [place] [address] UV Type of Service Technical Only Normal [facility] Comment on above: Performed By: #### 1 [id number] #### [facility] [address] [place] [address] Retail - Clinical Noteon Retail - Clinical Note [id number] #1.00CD:127 Normal [facility] XR KNEE RT 4V or >on 023 [...] DEBORAH ZARAGOZA Date: 2022-06-30 17:38 Normal [facility] XR RIBS RT PA Fab 2 [...] SOCORRO SERRANO Date: 2022-05-25 14:51 Normal [facility] XR RIBS RT PA Fab 2 [...] atelectasis and small pleural effusion Normal [facility] CT CHEST WO CONon 04-18-2022 CT [...] SOCORRO BANSAL Date: 2022-04-18 16:17 Normal [facility] CULTURE URINEon 03-12-2022 CULTURE URINE Culture Observations: NO GROWTH. Normal [facility] Comment on above: Performed By: #### S PUTGS #### [facility] [address] [address] [address] Johnna Dixon COVID-19 Positive/NegativeOr dered By: Lionel Carrington on 02-13-2022 SARS-CoV-2 (COVID-19) N gene REX+probe Ql (Resp) Negative Negative [facility] Comment on above: Testing for SARS-CoV -2 by RT-PCR This test was developed and its performance characteristics determined by [employer] ([employer]) and validated at the [facility]. This test has not been FDA [...] aPTT Coag (PPP) [Time] 34.8 s 25.1-36.5 [facility] Basophils Auto (Bld) [#/Vol] Ordered By: Lionel Carrington on 02-06-2022 Basophils (Bld) [#/Vol] 0.0 10*3/uL 0.0-0.2 [facility] Basophils/100 WBC Auto (Bld) Ordered By: Lionel Carrington on 02-06-2022 Basophils/100 WBC (Bld) 0.8 % . [facility] Blood hemoglobin measurement (mass/volume)Ordered By: Lionel Carrington on 02-06-2022 Hemoglobin (Bld) [Mass/Vol] 13.2 g/dL 13.0-17.0 [facility] Blood leukocytes automated c ount (number/volume)Ordered By: Lionel Carrington on 02-06-2022 WBC (Bld) [#/Vol] 5.7 10*3/uL 4.5-11.0 [facility] Creatinine and Glomerular fi ltration rate.predicted panel (S/P/Bld)Ordered By: Lionel Carrington on 02-06-2022 Creatinine [Mass/Vol] 1.21 mg/dL 0.64-1.27 [facility] Eosinophils Auto (Bld) [#/Vo l]Ordered By: Lionel Carrington on 02-06-2022 Eosinophils (Bld) [#/Vol] 0.1 10*3/uL 0.0-0.45 [facility] Eosinophils/100 WBC Auto (Bl d)Ordered By: Lionel Carrington on 02-06-2022 Eosinophils/100 WBC (Bld) 1.7 % . [facility] Erythrocyte distribution wid th Auto (RBC) [Ratio]Ordered By: Lionel Carrington on 02-06-2022 Erythrocyte distribution width (RBC) [Ratio] 14.2 % 12.0-14.8 [facility] Estimated glomerular filtrat ion rate (GFR) non- AmericanOrdered By: Lionel Carrington on 02-06-2022 GFR/1.73 sq M.predicted among non-blacks MDRD (S/P/Bld) [Vol rate/Area] 59 mL/Min [facility] Hematocrit Auto (Bld) [Volum e fraction]Ordered By: Lionel Carrington on 02-06-2022 Hematocrit (Bld) [Volume fraction] 40.8 % 38.8-50.0 [facility] - CoagulationOrde red By: Lionel Carrington on 02-06-2022 PT Coag (PPP) [Time] 11.0 s 9.0-12.9 [facility] - Hematology and Cell countsOrdered By: Lionel Carrington on 02-06-2022 Nucleated RBC/100 WBC (Bld) [Ratio] 0.1 % 0-0.5 [facility] Lymphocytes Auto (Bld) [#/Vo l]Ordered By: Lionel Carrington on 02-06-2022 Lymphocytes (Bld) [#/Vol] 1.6 10*3/uL 1.00-4.8 [facility] Lymphocytes/100 WBC Auto (Bl d)Ordered By: Lionel Carrington on 02-06-2022 Lymphocytes/100 WBC (Bld) 27.4 % . [facility] MCH Auto (RBC) [Entitic mass ]Ordered By: Lionel Carrington on 02-06-2022 MCH (RBC) [Entitic mass] 29.7 pg 27.5-35.2 [facility] MCHC Auto (RBC) [Mass/Vol]Or dered By: Lionel Carrington on 02-06-2022 MCHC (RBC) [Mass/Vol] 32.4 g/dL 32.5-35.6 [facility] MCV Auto (RBC) [Entitic vol] Ordered By: Lionel Carrington on 02-06-2022 MCV (RBC) [Entitic vol] 91.6 fL 83.5-101 [facility] Monocytes Auto (Bld) [#/Vol] Ordered By: Lionel Carrington on 02-06-2022 Monocytes (Bld) [#/Vol] 0.5 10*3/uL 0.0-0.8 [facility] Monocytes/100 WBC Auto (Bld) Ordered By: Lionel Carrington on 02-06-2022 Monocytes/100 WBC (Bld) 8.7 % . [facility] Neutrophils Auto (Bld) [#/Vo l]Ordered By: Lionel Carrington on 02-06-2022 Neutrophils (Bld) [#/Vol] 3.5 10*3/uL 1.8-7.7 [facility] Neutrophils/100 WBC Auto (Bl d)Ordered By: Loinel Carrington on 02-06-2022 Neutrophils/100 WBC (Bld) 61.4 % . [facility] No Panel InformationOrdered By: Lionel Carrington on 02-06-2022 Estimated GFR () > 60 mL/Min [facility] Comment on above: GFR estimated refere nce range: According to KDOQI guidelines, <60 ml/min/1.73m2 is sufficient to diagnose a patient with chronic kidney disease. Pharmacy Creatinine Clearance (Chem N/A [facility] Platelet mean volume Auto (B ld) [Entitic vol]Ordered By: Lionel Carrington on 02-06-2022 Platelet mean volume (Bld) [Entitic vol] 8.4 fL 6.6-10.1 [facility] Platelet poor plasma interna tional normalized ratio (INR) by coagulation assay (relatOrdered By: Lionel Carrington on 02-06-2022 INR Coag (PPP) [Relative time] 1.0 {INR} [facility] Comment on above: INR Therapeutic Rang [...] 02-06-2022 Platelets (Bld) [#/Vol] 248 10*3/uL 150-450 [facility] RBC Auto (Bld) [#/Vol]Ordere d By: Lionel Carrington on 02-06-2022 RBC (Bld) [#/Vol] 4.45 10*6/uL 3.90-5.60 [facility] Serum or plasma calcium eliezer urement (mass/volume)Ordered By: Lionel Carrington on 02-06-2022 Calcium [Mass/Vol] 9.7 mg/dL 8.2-10.2 [facility] Serum or plasma chloride sammy surement (moles/volume)Ordered By: Lionel Carrington on 02-06-2022 Chloride [Moles/Vol] 99 mmol/L 95-114 [facility] Serum or plasma glucose eliezer urement (mass/volume)Ordered By: Lionel Carrington on 02-06-2022 Glucose [Mass/Vol] 99 mg/dL 70-100 [facility] Comment on above: ADA recommended refe rence range Random Glucose Reference Range is dependent on time and content of last meal. Glucose of more than 200 mg/dL in a nonstressed, ambulatory subject supports the diagnosis of Diabetes Mellitus. Serum or plasma potassium me asurement (moles/volume)Ordered By: Lionel Carrington on 02-06-2022 Potassium [Moles/Vol] 4.4 mmol/L 3.5-5.1 [facility] Serum or plasma sodium measu rement (moles/volume)Ordered By: Lionel Carrington on 02-06-2022 Sodium [Moles/Vol] 135 mmol/L 136-146 [facility] Serum or plasma total carbon dioxide measurement (moles/volume)Ordered By: Lionel Carrington on 02-06-2022 CO2 [Moles/Vol] 26.2 mmol/L 22.0-30.[address] [facility] Serum or plasma urea nitroge n measurement (mass/volume)Ordered By: Lionel Carrington on 02-06-2022 Urea nitrogen [Mass/Vol] 20 mg/dL 9-23 [facility] COVID-19 Positive/NegativeOr dered By: Lionel Carrington on 10-27-2021 SARS-CoV-2 (COVID-19) N gene REX+probe Ql (Resp) Negative Negative [facility] Comment on above: Testing for SARS-CoV -2 by RT-PCR This test was developed and its performance characteristics determined by [employer] ([employer] and validated at the [facility]. This test has not been FDA [...] aPTT Coag (PPP) [Time] 36.2 s 25.1-36.5 [facility] Basophils Auto (Bld) [#/Vol] Ordered By: Lionel Carrington on 10-17-2021 Basophils (Bld) [#/Vol] 0.0 10*3/uL 0.0-0.2 [facility] Basophils/100 WBC Auto (Bld) Ordered By: Lionel Carrington on 10-17-2021 Basophils/100 WBC (Bld) 0.6 % [facility] Blood hemoglobin measurement (mass/volume)Ordered By: Lionel Carrington on 10-17-2021 Hemoglobin (Bld) [Mass/Vol] 13.6 g/dL 13.0-17.0 [facility] Blood leukocytes automated c ount (number/volume)Ordered By: Lionel Carrington on 10-17-2021 WBC (Bld) [#/Vol] 5.9 10*3/uL 4.5-11.0 [facility] Creatinine and Glomerular fi ltration rate.predicted panel (S/P/Bld)Ordered By: Lionel Carrington on 10-17-2021 Creatinine [Mass/Vol] 0.96 mg/dL 0.64-1.27 [facility] Eosinophils Auto (Bld) [#/Vo l]Ordered By: Lionel Carrington on 10-17-2021 Eosinophils (Bld) [#/Vol] 0.1 10*3/uL 0.0-0.45 [facility] Eosinophils/100 WBC Auto (Bl d)Ordered By: Lionel Carrington on 10-17-2021 Eosinophils/100 WBC (Bld) 2.0 % [facility] Erythrocyte distribution wid th Auto (RBC) [Ratio]Ordered By: Lionel Carrington on 10-17-2021 Erythrocyte distribution width (RBC) [Ratio] 14.5 % 12.0-14.8 [facility] Estimated glomerular filtrat ion rate (GFR) non- AmericanOrdered By: Lionel Carrington on 10-17-2021 GFR/1.73 sq M.predicted among non-blacks MDRD (S/P/Bld) [Vol rate/Area] > 60 mL/Min [facility] Hematocrit Auto (Bld) [Volum e fraction]Ordered By: Lionel Carrington on 10-17-2021 Hematocrit (Bld) [Volume fraction] 41.5 % 38.8-50.0 [facility] - CoagulationOrde red By: Lionel Carrington on 10-17-2021 PT Coag (PPP) [Time] 11.0 s 9.0-12.9 [facility] - Hematology and Cell countsOrdered By: Lionel Carrington on 10-17-2021 Nucleated RBC/100 WBC (Bld) [Ratio] 0.0 % 0-0.5 [facility] Lymphocytes Auto (Bld) [#/Vo l]Ordered By: Lionel Carrignton on 10-17-2021 Lymphocytes (Bld) [#/Vol] 1.6 10*3/uL 1.00-4.8 [facility] Lymphocytes/100 WBC Auto (Bl d)Ordered By: Lionel Carrington on 10-17-2021 Lymphocytes/100 WBC (Bld) 26.8 % [facility] MCH Auto (RBC) [Entitic mass ]Ordered By: Lionel Carrington on 10-17-2021 MCH (RBC) [Entitic mass] 29.3 pg 27.5-35.2 [facility] MCHC Auto (RBC) [Mass/Vol]Or dered By: Lionel Carrington on 10-17-2021 MCHC (RBC) [Mass/Vol] 32.7 g/dL 32.5-35.6 [facility] MCV Auto (RBC) [Entitic vol] Ordered By: Lionel Carrington on 10-17-2021 MCV (RBC) [Entitic vol] 89.8 fL 83.5-101 [facility] Monocytes Auto (Bld) [#/Vol] Ordered By: Lionel Carrington on 10-17-2021 Monocytes (Bld) [#/Vol] 0.6 10*3/uL 0.0-0.8 [facility] Monocytes/100 WBC Auto (Bld) Ordered By: Lionel Carrington on 10-17-2021 Monocytes/100 WBC (Bld) 10.6 % [facility] Neutrophils Auto (Bld) [#/Vo l]Ordered By: Lionel Carrington on 10-17-2021 Neutrophils (Bld) [#/Vol] 3.5 10*3/uL 1.8-7.7 [facility] Neutrophils/100 WBC Auto (Bl d)Ordered By: Lionel Carrington on 10-17-2021 Neutrophils/100 WBC (Bld) 60.0 % [facility] No Panel InformationOrdered By: Lionel Carrington on 10-17-2021 Estimated GFR () > 60 mL/Min [facility] Comment on above: GFR estimated refere nce range: According to KDOQI guidelines, <60 ml/min/1.73m2 is sufficient to diagnose a patient with chronic kidney disease. Pharmacy Creatinine Clearance (Chem N/A [facility] Platelet mean volume Auto (B ld) [Entitic vol]Ordered By: Lionel Carrington on 10-17-2021 Platelet mean volume (Bld) [Entitic vol] 8.3 fL 6.6-10.1 [facility] Platelet poor plasma interna tional normalized ratio (INR) by coagulation assay (relatOrdered By: Lionel Carrington on 10-17-2021 INR Coag (PPP) [Relative time] 1.0 {INR} [facility] Comment on above: INR Therapeutic Rang [...] 10-17-2021 Platelets (Bld) [#/Vol] 249 10*3/uL 150-450 [facility] RBC Auto (Bld) [#/Vol]Ordere d By: Lionel Carrington on 10-17-2021 RBC (Bld) [#/Vol] 4.62 10*6/uL 3.90-5.60 [facility] Serum or plasma calcium eliezer urement (mass/volume)Ordered By: Lionel Carrington on 10-17-2021 Calcium [Mass/Vol] 9.7 mg/dL 8.2-10.2 [facility] Serum or plasma chloride sammy surement (moles/volume)Ordered By: Lionel Carrington on 10-17-2021 Chloride [Moles/Vol] 101 mmol/L 95-114 [facility] Serum or plasma glucose eliezer urement (mass/volume)Ordered By: Lionel Carrington on 10-17-2021 Glucose [Mass/Vol] 87 mg/dL 70-100 [facility] Comment on above: ADA recommended refe rence range Random Glucose Reference Range is dependent on time and content of last meal. Glucose of more than 200 mg/dL in a nonstressed, ambulatory subject supports the diagnosis of Diabetes Mellitus. Serum or plasma potassium me asurement (moles/volume)Ordered By: Lionel Carrington on 10-17-2021 Potassium [Moles/Vol] 4.4 mmol/L 3.5-5.1 [facility] Serum or plasma sodium measu rement (moles/volume)Ordered By: Lionel Carrington on 10-17-2021 Sodium [Moles/Vol] 136 mmol/L 136-146 [facility] Serum or plasma total carbon dioxide measurement (moles/volume)Ordered By: Lionel Carrington on 10-17-2021 CO2 [Moles/Vol] 25.6 mmol/L 22.0-30.[address] [facility] Serum or plasma urea nitroge n measurement (mass/volume)Ordered By: Lionel Carrington on 10-17-2021 Urea nitrogen [Mass/Vol] 18 mg/dL 03-13 [facility] Vital Signs Date Time Vital Sign Value Performing Clinician Facility 08-12-2023 11:10-0500 Body height 182.88 cm MD Yolande Staley Work Phone: [facility] 08-12-2023 11:10-0500 Body mass index (BMI) [Ratio] 24.3 kg/m2 MD Yolande Staley Work Phone: [facility] 08-12-2023 11:10-0500 Body weight 81.19 kg MD Yolande Staley Work Phone: [facility] 02-10-2023 14:16-0400 Blood Pressure Location Qamar ROBINSONL [facility] [place] 02-10-2023 14:16-0400 Diastolic blood pressure 80 mm[Hg] Qamar BOWERSL [facility] [place] 02-10-2023 14:16-0400 Heart rate 70 /min Qamar BOWERSL [facility] [place] 02-10-2023 14:16-0400 Respiratory rate 16 /min Qamar BOWERSL [facility] [place] 02-10-2023 14:16-0400 Systolic blood pressure 124 mm[Hg] Qamar BOWERSL [facility] [place] 12-03-2022 10:20-0400 Body height 182.88 cm Zoran Chavez Other [facility] Other 12-03-2022 10:20-0400 Body mass index (BMI) [Ratio] 25.49 kg/m2 Zoran Chavez Other [facility] Other 12-03-2022 10:20-0400 Body weight 85.28 kg Zoran Chavez Other [facility] 10-22-2022 10:20-0400 Body height 182.88 cm Zoran Chavez Other [facility] 10-22-2022 10:20-0400 Body mass index (BMI) [Ratio] 25.63 kg/m2 Zoran Scott Other [facility] 10-22-2022 10:20-0400 Body weight 85.73 kg Zoran Chavez Other [facility] Other 10-22-2022 10:20-0400 Diastolic blood pressure 80 mm[Hg] Zoran Chavez Other [facility] 10-22-2022 10:20-0400 Systolic blood pressure 110 mm[Hg] Zoran Scott Other [facility] 02-24-2022 10:43-0400 Blood Pressure Location Lionel CARRINGTON [facility] 02-24-2022 10:43-0400 Diastolic blood pressure 80 mm[Hg] Lionel CARRINGTON [facility] 02-24-2022 10:43-0400 Heart rate 65 /min Lionel CARRINGTON [facility] 02-24-2022 10:43-0400 Respiratory rate 16 /min Lionel CARRINGTON [facility] 02-24-2022 10:43-0400 Systolic blood pressure 140 mm[Hg] Lionel CARRINGTON [facility] 02-17-2022 15:15-0400 Diastolic blood pressure 83 mm[Hg] MD Yolande Staley Work Phone: [facility] 02-17-2022 15:15-0400 Heart rate 58 /min MD Yolande Staley Work Phone: [facility] 02-17-2022 15:15-0400 Respiratory rate 16 /min MD Yolande Staley Work Phone: [facility] 02-17-2022 15:15-0400 SaO2% (BldA) [Mass fraction] 95 % MD Yolande Staley Work Phone: [facility] 02-17-2022 15:15-0400 Systolic blood pressure 166 mm[Hg] MD Yolande Staley Work Phone: [facility] 02-17-2022 14:30-0400 Body height 182.88 cm MD Yolande Staley Work Phone: [facility] 02-17-2022 14:30-0400 Body mass index (BMI) [Ratio] 26.2 kg/m2 MD Yolande Staley Work Phone: [facility] 02-17-2022 14:30-0400 Body weight 87.7 kg MD Yolande Staley Work Phone: [facility] 02-17-2022 14:17-0400 Body temperature 97.6 [degF] MD Yolande Staley Work Phone: [facility] 02-17-2022 13:52-0400 Inhaled oxygen flow rate 10 L/min MD Yolande Staley Work Phone: [facility] 10-17-2021 11:42-0400 Body height 180.34 cm MD Yolande Staley Work Phone: [facility] 10-17-2021 11:42-0400 Body mass index (BMI) [Ratio] 27 kg/m2 MD Yolande Staley Work Phone: [facility] 10-17-2021 11:42-0400 Body temperature 98.4 [degF] MD Yolande Staley Work Phone: [facility] 10-17-2021 11:42-0400 Body weight 88 kg MD Yolande Staley Work Phone: [facility] 10-17-2021 11:42-0400 Diastolic blood pressure 90 mm[Hg] MD Yolande Staley Work Phone: [facility] 10-17-2021 11:42-0400 Heart rate 64 /min MD Yolande Staley Work Phone: [facility] 10-17-2021 11:42-0400 SaO2% (BldA) [Mass fraction] 100 % MD Yolande Staley Work Phone: [facility] 10-17-2021 11:42-0400 Systolic blood pressure 172 mm[Hg] MD Yolande Staley Work Phone: [facility] Encounters Encounter Date Encounter Type Care Provider Facility Start: 08-28-2023 End: 08-28-2023 ambulatory Yolande Staley Facility:[facility] Start: 08-12-2023 End: 08-12-2023 ambulatory Yolande Staley Facility:[facility] Start: 08-12-2023 End: 08-12-2023 ambulatory MD Yolande Staley Work Phone: [facility] Work Phone: Start: 08-12-2023 End: 08-12-2023 Patient encounter procedure MD Yolande Staley Work Phone: [facility] Work Phone: Start: 08-12-2023 End: 08-12-2023 ambulatory MD Yolande Staley Work Phone: [facility] Work Phone: Start: 08-12-2023 End: 08-12-2023 Patient encounter procedure MD Yolande Staley Work Phone: [facility] Work Phone: Start: 07-26-2023 End: 07-27-2023 ambulatory Dereck Osman MD Facility: [facility] Start: 04-27-2023 End: 04-28-2023 ambulatory Lionel CARRINGTON Facility:[facility] Start: 04-27-2023 End: 04-27-2023 Patient encounter procedure Lionel CARRINGTON [facility] Start: 03-15-2023 End: 03-16-2023 ambulatory Dereck Osman MD Facility: [facility] Start: 03-10-2023 End: 03-11-2023 ambulatory Qamar R ROBINSONL Facility:[id number] Start: 02-10-2023 End: 02-11-2023 ambulatory Qamar R ROBINSONL Facility: [facility] Start: 02-10-2023 End: 02-10-2023 Patient encounter procedure Qamar R ROBINSONL [facility] [place] Start: 01-20-2023 End: 01-21-2023 ambulatory Lioenl CARRINGTON Facility:[facility] Start: 01-14-2023 End: 01-15-2023 ambulatory Lionel CARRINGTON Facility:[id number] Start: 01-05-2023 End: 01-06-2023 ambulatory Lionel CARRINGTON Facility:[facility] Start: 01-05-2023 End: 01-05-2023 Patient encounter procedure Lionel CARRINGTON [facility] Start: 01-01-2023 End: 01-01-2023 ambulatory Yolande Staley Facility:[facility] Start: 01-01-2023 End: 01-01-2023 ambulatory MD Yolande Staley Work Phone: [facility] Work Phone: Start: 01-01-2023 End: 01-01-2023 Patient encounter procedure MD Yolande Staley Work Phone: [facility] [place] Work Phone: Start: 12-28-2022 End: 12-29-2022 ambulatory Dereck Osman MD Facility:[facility] Start: 12-14-2022 End: 12-15-2022 ambulatory Dereck Osman MD Facility:[facility] [place] Start: 12-03-2022 End: 12-03-2022 ambulatory Zoran Chavez Other [facility] Other Start: 12-03-2022 Office outpatient visit 15 minutes Zoran Chavez [facility] Start: 11-20-2022 End: 11-21-2022 ambulatory DERECK OSMAN Facility:[facility] Start: 10-28-2022 End: 10-29-[address] NELLY HERRERA Facility:[facility] Start: 10-27-2022 End: 11-18-[address] ZORAN CHAVEZ Facility:[facility] Start: 10-23-2022 End: 10-24-[address] ZORAN CHAVEZ Facility:[facility] Start: 10-22-2022 End: 10-22-2022 ambulatory Zoran Chavez Other Cliq Other Start: 10-22-2022 Office outpatient visit 15 minutes Zoran Chavez [facility] Start: 10-05-2022 End: 10-06-[address] YOLANDE STALEY . Facility:[facility] Start: 09-29-2022 End: 09-30-2022 ambulatory Lionel CARRINGTON Facility:[facility] Start: 09-24-2022 End: 09-25-[address] YOLANDE STALEY . Facility:[facility] Start: 09-21-2022 End: 09-22-[address] LIONEL CARRINGTON . Facility:[facility] Start: 09-21-2022 End: 09-22-2022 ambulatory Lionel CARRINGTON Facility: [place] Start: 09-21-2022 End: 09-21-2022 Patient encounter procedure Lionel CARRINGTON [facility] Start: 08-19-2022 End: 08-20-[address] LIONEL CARRINGTON . Facility: Start: 08-17-2022 End: 08-18-2022 ambulatory Lionel CARRINGTON Facility:[facility] Start: 08-17-2022 End: 08-17-2022 Patient encounter procedure Lionel CARRINGTON [facility] Start: 08-04-2022 End: 08-05-[address] YOLANDE STALEY . Facility:[facility] Start: 07-28-2022 End: 07-29-[address] YOLANDE STALEY . Facility:[facility] Start: 07-23-2022 End: 07-23-[address] LIONEL CARRINGTON . Facility: Start: 07-20-2022 End: 07-21-2022 ambulatory Lionel CARRINGTON Facility:[facility] Start: 07-20-2022 End: 07-20-2022 Patient encounter procedure Lionel CARRINGTON [facility] Start: 07-07-2022 End: 07-08-2022 ambulatory Lionel CARRINGTON Facility:[facility] Start: 07-07-2022 End: 07-07-2022 Patient encounter procedure Lionel CARRINGTON [facility] Start: 06-30-2022 End: 07-01-[address] YOLANDE STALEY . Facility:[facility] Start: 06-04-2022 End: 06-04-[address] YOLANDE STALEY . Facility:[facility] Start: 05-25-2022 End: 05-26-[address] YOLANDE STALEY . Facility:[facility] Start: 05-18-2022 End: 05-18-2022 Patient encounter procedure Lionel CARRINGTON [facility] Start: 04-27-2022 End: 04-28-[address] YOLANDE STALEY . Facility:[facility] Start: 04-18-2022 End: 04-18-[address] FELICIA GALDAMEZ . Facility:[facility] Start: 04-15-2022 End: 04-15-2022 Patient encounter procedure Lionel CARRINGTON [facility] Start: 03-26-2022 End: 03-26-[address] LIONEL CARRINGTON . Facility:[facility] Start: 03-12-2022 End: 03-13-[address] YOLANDE STALEY . Facility:[facility] Start: 03-09-2022 End: 03-09-2022 Patient encounter procedure Lionel CARRINGTON [facility] Start: 02-27-2022 End: 02-27-2022 Lab Drop off Lionel CARRINGTON [facility] Start: 02-27-2022 End: 02-27-2022 Patient encounter procedure Lioenl CARRINGTON [facility] Start: 02-24-2022 End: 02-24-2022 Patient encounter procedure Lionel CARRINGTON [facility] Start: 02-17-2022 End: 02-17-2022 Admission to same day surgery center MD Yolande Staley Work Phone: [facility] [place] Start: 02-13-2022 End: 02-13-2022 Patient encounter procedure MD Yolande Staley Work Phone: [facility] Start: 02-06-2022 End: 02-06-2022 Patient encounter procedure MD Yolande Staley Work Phone: [facility] Start: 11-11-2021 End: 11-11-2021 Patient encounter procedure Lionel CARRINGTON [facility] Start: 11-05-2021 End: 11-05-2021 Patient encounter procedure Lionel Burgos DEVONTE [facility] Start: 10-29-2021 End: 10-29-2021 Admission to same day surgery center MD Yolande Staley Work Phone: [facility] [place] Start: 10-27-2021 End: 10-27-2021 Patient encounter procedure MD Yolande Staley Work Phone: [facility] Start: 10-17-2021 End: 10-17-2021 Patient encounter procedure MD Yolande Staley Work Phone: [facility] Procedures Date Procedure Procedure [...] above: Performed By: #### P SAD #### [facility] [address] [place] [address] Dr. 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) Lionel CARRINGTON Plan of Treatment Date Care Activity Detail Author Start: 10-04-2023 ambulatory Ambulatory Facility:[facility] [place] Start: 08-12-2023 Patient referral [facility] Work Phone: Start: 08-12-2023 X-ray of cervical spine XR cer vical spine w flex/ext [facility] Start: 08-12-2023 X-ray of lumbar spin e, six views including bending views XR lumbar spine 6V w bending [facility] Start: 08-12-2023 XR Cervical spine Vi ews W flexion and W extension [facility] Start: 08-12-2023 XR Lumbar spine Views [facility] Start: 02-17-2022 End: 02-17-2022 [facility] Work Phone: Start: 02-17-2022 Transurethral resect ion of bladder neoplasm OR Cysto/TURBT/Bladder Biopsy/Fulg (Not Applicable) [facility] Start: 02-17-2022 End: 02-17-2022 Admission to same day surgery center Departed Surgical Day Care [facility] [place] Start: 02-13-2022 End: 02-13-2022 Patient encounter procedure Departed Clinical [facility] Irc-Qlk-Abqzcfgv Testing MR Cervical spine WO and W contrast IV [facility] Patient referral [facility] Work Phone: Immunizations Immunization Date Immunization Notes Care Provider Fa [facility] 04-16-2022 SARS-CoV-2 (COVID-19 ) [id number] Qamar SMITH [facility] 03-27-2022 influenza virus vacc ine, unspecified formulation Qamar SMITH [facility] 05-06-2021 COVID-19 mRNA-1252 (Moderna) MD Yolande Staley Work Phone: [facility] 09-19-2020 COVID-19 mRNA-1273 (Moderna) MD Yolande Staley Work Phone: [facility] Comment on above: Result Comment: 2022: [id number] 08-22-2020 COVID-19 mRNA-1273 (Moderna) MD Yolande Staley Work Phone: [facility] Comment on above: Result Comment: 2022: TPV65 06-21-2020 SARS-CoV-2 (COVID-19 ) mRNA-1273 vaccine Lionel CARRINGTON [facility] 05-23-2020 influenza virus vacc ine, unspecified formulation [facility] 04-03-2020 influenza virus vacc ine, unspecified formulation [facility] 05-29-2019 influenza virus vacc ine, unspecified formulation [facility] 04-14-2019 influenza, unspecifi ed formulation [facility] 09-26-2018 tetanus and diphther ia toxoids, adsorbed, preservative free, for adult use (2 Lf of tetanus toxoid and 2 Lf of diphtheria toxoid) [facility] 10-11-2017 pneumococcal polysaccharide vaccine, 23 valent Qamar NILL [facility] 07-22-2016 pneumococcal conjuga te vaccine, 13 valent [employer] NILL [facility] 06-29-2013 tetanus toxoid, redu mirtha diphtheria toxoid, and acellular pertussis vaccine, adsorbed [facility] 03-10-2000 Td(adult) unspecifie d demetria Qamar BOWERSDmitriy [facility] Payers Date Payer Category Payer Self-pay [id number] 2022 Unknown 1958 Medicare [id number] 1959 Unknown [id number] 2.16.840.1.407398.19 1951 Unknown [id number] 2.16.840.1.545663.3.579.2. 593 1951 Unknown [id number] 2.16.840.1.528890.3.579.2. 593 1951 Unknown [id number] 2.16.840.1.012916.3.579.2. 593 1951 Unknown [id number] 2.16.840.1.375325.3.579.2. 593 1951 Unknown [id number] 2.16.840.1.793905.3.579.2. 593 1951 Unknown [id number] 2.16.840.1.257020.3.579.2. 593 1951 Unknown [id number] 2.16.840.1.603619.3.579.2. 593 1951 Unknown [id number] 2.16.840.1.138196.3.579.2. 593 1951 Unknown [id number] 2.16.840.1.271732.3.579.2. 593 1951 Unknown [id number] 2.16.840.1.801019.3.579.2. 593 1951 Unknown [id number] 2.16.840.1.861629.3.579.2. 593 1951 Unknown [id number] 2.16.840.1.216845.3.579.2. 593 1951 Unknown [id number] 2.16.840.1.556267.3.579.2. 593 1951 Unknown [id number] 2.16.840.1.157603.3.579.2. 593 1951 Unknown [id number] 2.16.840.1.307503.3.579.2. 593 1951 Unknown [id number] 2.16.840.1.409438.3.579.2. 593 1951 Unknown [id number] 2.16.840.1.150987.3.579.2. 593 1951 Unknown [id number] 2.16.840.1.145070.3.579.2. 593 1951 Unknown [id number] 2.16.840.1.582575.3.579.2. 593 1951 Unknown [id number] 2.16.840.1.114126.3.579.2. 727 1951 Unknown [id number] 2.16.840.1.647899.3.579.2. 727 1951 Unknown [id number] 2.16.840.1.189793.3.579.2. 727 1951 Unknown [id number] 2.16.840.1.624092.3.579.2. 727 1951 Unknown [id number] 2.16.840.1.579053.3.579.2. 727 1951 Unknown [id number] 2.16.840.1.577826.3.579.2. 727 1951 Unknown [id number] 2.16.840.1.830196.3.579.2. 727 1951 Unknown [id number] 2.16.840.1.399344.3.579.2. 727 1951 Unknown [id number] 2.16.840.1.694086.3.579.2. 727 1951 Unknown [id number] 2.16.840.1.087104.3.579.2. 72 1951 Unknown [id number] 2.16.840.1.358524.3.579.2. 72 1951 Unknown [id number] 2.16.840.1.421934.3.579.2. 72 1951 Unknown [id number] 2.16.840.1.002608.3.579.2. 72 1951 Unknown [id number] 2.16.840.1.022357.3.579.2. 72 1951 Unknown [id number] 2.16.840.1.463527.3.579.2. 196 1951 Unknown [id number] 2.16.840.1.201380.3.579.2. 196 1951 Unknown [id number] 2.16.840.1.383858.3.579.2. 196 1951 Unknown [id number] 2.16.840.1.218795.3.579.2. 196 1951 Unknown [id number] 2.16.840.1.088469.3.579.2. 196 Medicare Medicare [id number] Private Health Insurance [id number] Unknown [place] [id number] Unknown [id number] 2.16.840.1.497196.3.579.2. 531 Unknown [id number] 2.16.840.1.304970.3.579.2. 531 Unknown [id number] 2.16.840.1.573029.3.579.2. 531 Social History Date Type Detail Facility Start: 10-17-2021 End: 02-17-2022 Tobacco smoking status NHIS Ex-smoker (finding) [facility] Comment on above: pt quit smoking 10+ yrs ago Start: 1950 Sex Assigned At Male [facility] Start: 11-05-2021 Tobacco smoking status Never s moked tobacco (finding) [facility] Tobacco smoking status Never [facility] Comment on above: pt quit smoking 10+ yrs ago Sex Assigned At Male [facility] Medical Equipment Procedure Code Equipment Code Equipment Original Text Equipment Identifier Dates Transurethral resection of bladder tumor (TURBT) with cystoscopy Polymeric ureteral stent [id number] FDA Start: 10-29-2021 Decompression, spine, cervical, posterior approach Bone-screw internal spinal fixation system, non-sterile ()[id number] FDA Start: 04-18-2020 Decompression, spine, cervical, posterior approach Bone-screw internal spinal fixation system, non-sterile ()[id number] FDA Start: 04-18-2020 Decompression, spine, cervical, posterior approach Bone-screw internal spinal fixation system, non-sterile ()[id number] FDA Start: 04-18-2020 Decompression, spine, cervical, posterior approach Bone-screw internal spinal fixation system, non-sterile ()[id number] FDA Start: 04-18-2020 Decompression, spine, cervical, posterior approach Bone-screw internal spinal fixation system, non-sterile ()[id number] FDA Start: 04-18-2020 Goals Date Patient Goal Desired Activity /State Functional Status Date Assessment Result Facility 04-27-2023 Functional Status N/A [facility] 02-10-2023 Functional Status N/A [facility] [place] 01-05-2023 Functional Status N/A [facility] 02-24-2022 Functional Status N/A [facility] Clinical Notes 11-04-2021 to 04-27-2023 Note Date & Type Note Facility 04-27-2023 Note [id number]#[id number] [facility] 04-27-2023 Hospital Discharge instructions Patient Education 04/27/2023 [...] CARRINGTON Address: [facility] [address] [place] [address]- Business (1) When: Unknown Comments:Office will call to schedule follow up [facility] 04-27-2023 Note Custom Cystoscopy ? Voiding [...] you have a fever over 100 degrees. [facility] 02-10-2023 Note Chief Complaint consultation for surveillance [...] Cervical vertebral fu (more content not included)... [facility] Comment on above: Result Comment: Elec tronically Signed By: LUIS NOBLE, Qamar Ernandez\Date and Time Signed: 02/10/23 15:05 EDT 01-05-2023 Note [id number]#[id number]:127 [facility] 01-05-2023 Hospital Discharge instructions Patient Education 01/05/2023 [...] [facility] [address], [place] [address]- Business (1) When: Unknown Comments:Office will call to schedule follow up [facility] 01-05-2023 Note Custom Cystoscopy ? Voiding [...] you have a fever over 100 degrees. [facility] 12-03-2022 Evaluation note Encounter Date Diagnosis Assessment [...] M46.1) Nov, Neurogenic claudication (ICD-10 - R29.818) [facility] Other 05-04-2023 Evaluation note* Encounter Date Diagnosis [...] spine October, Neurogenic claudication (ICD-10 - R29.818) [facility] Other [id number] Note [id number]:127[facility] 09-29-2022 NoteCustom Cystoscopy ? Voiding after the [...] if you have a fever over 100 degrees.[facility] 09-21-2022 Hospital Discharge instructions Patient Education 09/21/2022 [...] if anything looks unusual. Men with a zlkmhy-zydu-ybmuqp risk for skin cancer may want to see a international specialist (gut snatcher) for an annual body check. Where to find more information National Cancer [place]: https://www.cancer.gov/about-cancer/screening Centers for Disease Control and Prevention: https://www.cdc.gov/cancer/dcpc/prevention/screening.htm [employer]: https://www.cancer.org/latest-news/7-mrpysi-qhgppmapq-ofpww-tqs-glb.html Contact a health care provider if: You [...] 03/04/2017 Document Revised: 02/24/2019 Document Reviewed: 03/04/2017 [employer] Patient Education 2020 [employer] Follow Up Care 09/19/2021 11:05:08 With:DEVONTE NOBLE, Lionel Burgos, URL Address: [facility] [address] [place] [address]- When: Unknown [facility] 01-18-2023 Note [id number]:127[facility] 07-07-2022 Hospital Discharge instructions Patient Education 07/07/2022 [...] Address: [facility] [address] [place] [address]- Business (1) When: Unknown Comments:Office will call to schedule follow up [facility]01-17-2023 NoteCustom Cystoscopy ? Voiding after the [...] if you have a fever over 100 degrees.[facility] 02-24-2022 Hospital Discharge instructions Patient Education 02/24/2022 [...] if anything looks unusual. Men with a jjqypf-lqfp-lbvkfc risk for skin cancer may want to see a international specialist (gut snatcher) for an annual body check. Where to find more information National Cancer [place]: https://www.cancer.gov/about-cancer/screening Centers for Disease Control and Prevention: https://www.cdc.gov/cancer/dcpc/prevention/screening.htm [place] [employer]: https://www.cancer.org/latest-news/8-pojqkz-qeqqnbqwh-ggoad-jwr-zgx.html Contact a health care provider if: You [...] 03/04/2017 Document Revised: 02/24/2019 Document Reviewed: 03/04/2017 [employer] Patient Education 2020 [employer] Follow Up Care 02/05/2022 13:48:40 With:DEVONTE NOBLE, Lionel Burgos, URL Address: [facility] [address] , [place] [address] [id number] When: Unknown [facility] 05-24-2022 Hospital Discharge instructions Patient Education [...] Address: [facility] [address] [place] [address]- Business (1) When: Unknown Comments:Keep scheduled appointment [facility]05-17-2022 Hospital Discharge instructions Patient Education 11/04/2021 [...] who: Are older than age 65. Are -Congolese. Are obese. Have a family history of [...] cells. Follow these instructions at home: Take cpjo-hez-ykbrlsd and prescription medicines only as told by [...] 06/07/2006 Document Revised: 05/20/2018 Document Reviewed: 02/15/2017 [employer] Patient Education 2020 [employer] Follow Up Care 10/14/2021 11:26:04 With:DEVONTE NOBLE, Lionel Burgos, URL Address: [facility] [address] , [place] [address]- When: Unknown [facility] Evaluation + Plan note Future Appointments Appointment Date:09/21/2022 09:45:00 AM Scheduled Provider:Lionel CARR[facility] Office Visit [facility] Evaluation + Plan note Future Appointments Appointment Date:03/09/2022 09:00:00 AM Scheduled Provider: Location:[facility] [place] Appointment Type:URO Nurse Visit Appointment Date:04/15/2022 09:00:00 AM Scheduled Provider: Location:[facility] [place] Appointment Type:URO Nurse Visit Appointment Date:09/21/2022 09:45:00 AM Scheduled Provider:Lionel CARRINGTON MD Location:[facility] [place] Appointment Type:URO Office Visit [facility] Evaluation + Plan note Future Appointments Appointment Date:03/09/2022 09:00:00 AM Scheduled Provider: Location:[facility] [place] Appointment Type:URO Nurse Visit Appointment Date:04/15/2022 09:00:00 AM Scheduled Provider: Location:[facility] [place] Appointment Type:URO Nurse Visit Appointment Date:09/21/2022 09:45:00 AM Scheduled Provider:Lionel CARRINGTON MD Location:[facility] [place] Appointment Type:URO Office Visit Diagnostic Tests Pending * [facility]ments Appointment Date:04/15/2022 09:00:00 AM Scheduled Provider: Location:[facility] [place] Appointment Type:URO Nurse Visit Appointment Date:09/21/2022 09:45:00 AM Scheduled Provider:Lionel CARRINGTON MD Location:[facility] [place] Appointment Type:URO Office Visit [facility] evaluation + Plan note Future Appointments Appointment Date:07/20/2022 10:00:00 AM Scheduled Provider: Location:[facility] Appointment Type:URO Nurse Visit Appointment Date:08/17/2022 10:00:00 AM Scheduled Provider: Location:[facility] Appointment Type:URO Nurse Visit Appointment Date:09/21/2022 09:45:00 AM Scheduled Provider:Lionel CARRINGTON MD Location:[facility] Appointment Type:URO Office Visit Diagnostic Tests Pending * UroVysion FISH ([facility]) [facility]ments Appointment Date:08/17/2022 10:00:00 AM Scheduled Provider: Location:[facility] Appointment Type:URO Nurse Visit Appointment Date:09/21/2022 09:45:00 AM Scheduled Provider:Lionel CARRINGTON MD Location:[facility] Appointment Type:URO Office Visit [facility] Evaluation + Plan note Future Appointments Appointment Date:09/22/2022 02:00:00 PM Scheduled Provider: Location:[facility] Appointment Type:Urology CALL PAT FT Appointment Date:09/29/2022 11:15:00 AM Scheduled Provider: Location:[facility] Appointment Type:Urology FT [facility] evaluation + Plan note Future Appointments Appointment Date:09/22/2022 02:00:00 PM Scheduled Provider: Location:[facility] Appointment Type:Urology CALL PAT FT Appointment Date:09/29/2022 11:15:00 AM Scheduled Provider: Location:[facility] Appointment Type:Urology FT Diagnostic Tests Pending * Urine Cytology ([facility]) 09/21/22 [facility] evaluation + Plan note Future Appointments Appointment Date:10/04/2023 10:15:00 AM Scheduled Provider:Lionel CARRINGTON MD Location:[facility] Appointment Type:URO Office Visit Diagnostic Tests Pending * UroVysion Fish and Urine Cyto ([facility]) [facility]ments Appointment Date:10/04/2023 10:15:00 AM Scheduled Provider:Lionel CARRINGTON MD Location:[facility] Appointment Type:URO Office Visit General Surgery [place] Evaluation + Plan note Future Appointments Appointment Date:10/04/2023 10:15:00 AM Scheduled Provider:Lionel CARRINGTON MD Location:[facility] Appointment Type:URO Office Visit Diagnostic Tests Pending * UroVysion Fish and Urine Cyto ([facility]) [facility] Work Phone: Evaluation note* Diagnosis Onset Date Resolution Status Spinal stenosis of cervical region with radiculopathy acute Spinal stenosis of lumbar region with radiculopathy acute [facility] Work Phone: History [...] KNEE SCOPE Surgical History L shoulder NAE -[facility] 2016 Hospitalization History FLU X2-3 DAYS Hospitalization History see surg. hx. [facility] Other Hospital course Narrative No data available for this section [facility] Hospital Discharge instructions No data available for this section [facility] progress note No data available for this section [facility] Chief Complaint and Reason for Visit Chief [...] Diagnosis 1 Cervical spondylosis (M47.812) Referral Organization [facility] urosurger Referring Provider First Name Zoran Referring Provider Last Name Scott Referring Provider Specialty Neurologica l Surgery Referred Organization [facility] Referred Address [address] [place], [place],[address] Referred Provider Specialty Physical The rapist Referral Priority Routine Reason evaluate and tr eat for neck and back pain Diagnosis 1 Cervical spondylosis (M47.812) Diagnosis 2 Low back pain, unspe cified (M54.50) Referral Organization [facility] urosurgery Referring Provider First Name Zoran Referring Provider Last Name Scott Referring Provider Specialty Neurologica l Surgery Referred Organization [facility] Referred Provider Raoul Soriano Referred Address [address], [place],[address] Referred Provider Specialty Pain Medicin e Referral [...] and content) DATE CREATED AUTHOR 11/27/2022 [facility] DATE CREATED AUTHOR AUTHOR'S ORGANIZ ATION 06/28/2023 [facility] DATE CREATED AUTHOR AUTHOR'S ORGANIZ ATION 07/29/2023 [facility] DATE CREATED AUTHOR AUTHOR'S ORGANIZ ATION 09/03/[address] [facility] FOR RECORDS PERTAINING TO PATIENTS WHO [...] BE BASED ON THE PRIMARY CLINICAL RECORDS. [facility] [employer] provides no warranty or guarantee of the accuracy or completeness of information in this document.
== END 2023-09-10 10:00 | disposition home or self-care (01) ==
LOC: LAB 10:00
PROVIDERS: PCP Family Medicine; Visit Provider Family Medicine
DX: J44.9 Chronic obstructive pulmonary disease, unspecified (principal)
CPT/HCPCS: 71046; 87070; 87205

== ENCOUNTER 2023-09-21 10:30 | Outpatient (OUT) | payer MEDICARE, SELFPAY ==
--- OUTSIDE RECORDS SUMMARY | 2023-09-21 10:40 | XMS_ITS | CCD ---
Author Organization [facility] Care Team Providers Care Project Technician Name Role Phone MD Yolande Staley Primary Care Provider [phone] MD Lionel Carrington Attending Provider Yolande Staley Primary Care Physician Leidy Plummer Unavailable Unavailable MD Yolande Staley Primary Care Provider [phone] MD Lionel Carrington Attending Provider Zoran Chavez [...] Unavailable MD Yolande Staley Primary Care Provider [phone] MD Zoran Chavez Attending Provider CARRINGTON, Lionel [...] Unavailable Giedraitis , Andrius Magui Attending Unavailable Giedhali NOBLE, Duncanrius Kilgore Attending Unavailable MD Yolande Staley Primary Care Provider [phone] LIDA Lowery Attending Provider Yolande Staley Primary Care Unavailable Esther oLwery Admitting Unavailable Esther Lowery Attending Unavailable Yolande Staley Primary Care Unavailable Esther Lowery Admitting Unavailable Esther Lowery Attending Unavailable Yolande Staley Primary Care Unavailable Zoran Chavez Admitting Unavailable Zoran Chavez Attending Unavailable VASU GALEANO Attending Unavailable Allergies Allergy Classification Reported Allergen(s) Allergy Type Date of Onset Reaction(s) Facility (9 sources) Acetaminophen; 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: [acetaminophen] Drug Allergy 0 Itching, Itching agitated, Itching agitated, aggitation [facility] (20 sources) Codeine; 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: [Codeine] Drug Allergy 4 rash [facility] (9 sources) oxyCODONE; 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: [oxycodone] Drug Allergy 0 Itching, agitated, Itching, agitated, aggitation [facility] (16 sources) Acetaminophen / oxyCODONE; 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: [acetaminophen-oxyc odone] Drug Allergy aggitation [facility] James Comment on above: pt states this does not work for pt, pt is not allergic to vicodin (4 sources) cyclobenzaprine Drug Allergy 4 itching [facility] (4 sources) HYDROcodone Drug Allergy 4 anxiety [facility] (4 sources) tiZANidine Drug Allergy 4 hives [facility] (3 sources) Acetaminophen / HYDROcodone; 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: [Vicodin] Drug Allergy [facility] Repository (2 sources) Acetaminophen / oxyCODONE Drug Allergy [facility] (1 source) atorvastatin Drug Allergy [facility] (2 sources) tiZANidine Drug Allergy [facility] Rep[facility] (1 source) Acetaminophen / oxyCODONE; 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: [Percocet 5/325] Drug Allergy [facility] Repository (1 source) cyclobenzaprine Drug Allergy 4 [facility] Repository (1 source) HYDROcodone Drug Allergy 4 [facility] Repository (1 source) tiZANidine Drug Allergy 4 [facility] Repository Medications Current Medications Medication Drug Class(es) [...] 09-19-2021 take 2 tablets by mo [facility] twice daily carvedilol 6.25 mg Tab 12.5 mg = 2 tab(s), Oral, BID, Refills(s) 0 Start Date: 09/19/21 Status: Ordered Start: 09-19-2021 carvedilol 6.2 5 mg Tab Refills(s) 0 Start Date: 09/19/21 Status: Ordered take 1 tablet by [facility] every twelve hours Carvedilol 12.5 MG 1 [...] 07, 2019 12:00am April 19, 2020 7:04am Xuscyrfrskw-Nvntgyrwa-Dxhfkh er (8 sources) Anticholinergic, Corticosteroid, beta2-Adrenergic Agonist Start: 08-07-2019 Zpxgkhskxaw-Eobokxydm-Bdkgxq er (Trelegy Ellipta) 100-62.5-25 mcg Blister With [...] procedure, # 2 tab(s), Refills(s) 0, Pharmacy: [facility]/pharmacy #[id number], 170, cm, 01/20/23 10:45:00 EDT, Height/Length Dosing, 83.5, kg, 01/20/23 10:45:00 EDT, Weight Dosing Start Date: 01/20/23 Status: Ordered Start: 12-31-2022 take 1 tablet by barry th once daily Cipro 500 mg Tab 500 mg = 1 tab(s), Oral, Daily, Take 1 tablet the day before the procedure and 1 tablet after the procedure, # 6 tab(s), Refills(s) 0, Pharmacy: [facility]/pharmacy #[id number], 170, cm, 09/22/22 12:23:00 EDT, Height/Length Dosing, 78, kg, 02/24/22 10:53:00 EDT, W... Start Date: 12/31/22 Status: Ordered Start: 07-02-2022 take 1 tablet by barry th once daily Cipro 500 mg Tab 500 mg = 1 tab(s), Oral, Daily, Take 1 tablet the day before the procedure and 1 tablet after the procedure, # 6 tab(s), Refills(s) 0, Pharmacy: [facility]/pharmacy #[id number], 170, cm, 02/24/22 10:53:00 EDT, [...] procedure, # 2 tab(s), Refills(s) 0, Pharmacy: [facility]/pharmacy #[id number], 170, cm, 11/05/21 11:37:00 EDT, [...] procedure, # 2 cap(s), Refills(s) 0, Pharmacy: [facility]/pharmacy #[id number], 188, cm, 02/10/23 14:22:00 EDT, [...] period., # 30 tab(s), Refills(s) 3, Pharmacy: [id number], 170, cm, 02/24/22 10:53:00 EDT, Height/Length Dosing, 78, kg, 02/24/22 10:53:00 EDT, Weight Dosing Start Date: 07/05/22 Status: Ordered Start: 09-19-2021 sildenafil 100 mg Tab 100 mg = 1 tab(s), Oral, Daily, Take 1 pill 30 minutes prior to sexual relations, # 30 tab(s), Refills(s) 3, Pharmacy: [id number], 170, cm, 09/19/21 10:16:00 [...] surgery d one radical prostectomy at [facility] Cancer of prostate (20 sources) Personal history [...] region] Episodic Other aftercare (1 source) Other long term care administrator (current) drug therapy; 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: [OTH DETENTION CURRENT DRUG THERAPY] Onset: 3 Episodic Other [...] conon 08-29-2023 MR cervical spine wo/w con [facility] Main [place] [address] [place] [address] MRI Report Signed Patient: Mary Diaz MR#: [id number] : 1950 Acct:[id number] Age/Sex: 73 / M ADM Date: 08/28/23 Loc: MR Room: Type: [facility] Attending Dr: Esther HILTON Copies to: [...] Lupe Campos M.D.08/29/2023 1:06 PM Dictation Location: [place] [address] Transcribed By: [facility] 08/29/23 1306 Dictated By: Lupe Campos MD 08/29/23 1254 Signed By: 08/29/23 1306 [facility] ISTAT XRay CREon 08-28-2023 Creatinine [Mass/Vol] 1.2 mg/dL Normal 0.6-1.3 [facility] Comment on above: Result Comment: ER/E SD physician is notified/shown all ISTAT results. Critical values may be confirmed by laboratory testing if deemed necessary by ER attending doctor. Performed By: #### I SCRE #### [address] ISTAT GFR > 60.0 [facility] Comment on above: Result Comment: PERF ORMED BY: [place] [address] PATHOLOGIST METAL PRECISION MACHINE ASSEMBLER JENARO FLOREZ M.D. Performed By: #### I SCRE #### [address] XR cervical spine LAT/FLX/EX Ton 08-12-2023 XR cervical spine LAT/FLX/EXT [facility] [place] [address] XRay Report Signed Patient: Mary Diaz MR#: [id number] : 1950 Acct:[id number] Age/Sex: 73 / M ADM Date: 08/12/23 Loc: XD Room: Type: [facility] Attending Dr: Esther Lowery NP-C Copies to: [...] Kenny Leahy M.D.08/12/2023 3:29 PM Dictation Location: [place] [address] Transcribed By: [facility] 08/12/23 1529 Dictated By: Kenny Leahy DO 08/12/23 1528 Signed By: 08/12/23 1529 Normal [facility] XR lumbar spine 6V w bending on 08-12-2023 XR lumbar spine 6V w bending [facility] [place] [address] XRay Report Signed Patient: Mary Diaz MR#: [id number] : 1950 Acct:[id number] Age/Sex: 73 / M ADM Date: 08/12/23 Loc: XD Room: Type: [facility] Attending Dr: Esther HILTON Copies to: LIDA [...] Kenny Leahy M.D.08/12/2023 3:28 PM Dictation Location: [place] [address] Transcribed By: NGA 08/12/23 1528 Dictated By: Kenny Leahy DO 08/12/23 1526 Signed By: 08/12/23 1528 [facility] Reminderson 06-28-2023 Reminders - From: Loretta Simons To: EU Recalls Carrington; Cc: Loretta Simons; Sent: 06/28/2023 10:52:09 EST Show up: 09/20/2023 10:52:00 EDT Subject: Cysto/6 mo Due Date/Time: 10/11/2023 10:52:00 EDT Reminder/Recall Patient is due in October 2023 for 6 month cysto/fish/cytol, PSA (bt ck) Normal [facility] UroVysion Fish and Urine Cyt o ([facility])on 05-26-2023 UVFISH & UC Revision Information Invalid Interpretation Code [facility] Comment on above: Result Comment: Jimbo ection Reason -[ To Nur, 05/26/23 - 14:52 ] Corrected report issued to include PMS/PWS. The diagnosis remains unchanged. Correction Notes - Performed By: #### 1 [id number] #### [facility] Laboratory [address] [place] [address] Consent for Procedure/Surger yon 04-27-2023 Consent for Procedure/Surgery [id number] #1.00TIFF Normal [facility] Consent for Treatmenton Consent for Treatment [id number] #1.00TIFF Normal [facility] IntraOperative Documentson 1 06-27-2022 IntraOperative Documents [id number] #1.00TIFF Normal [facility] Main [place] Intraoperative Recor don 04-27-2023 Main OR Intraoperative Record IntraOp Document Type FTURO Summary Primary Physician: Lionel CARRINGTON MD Finalized Date/Time: 04/27/23 11:02:57 Pt. Name: MARY DIAZ/Sex: 1950 Male Med Rec #: [id number] Physician: Lionel CARRINGTON MD Financial #: [id number] Pt. Type: O Room/Bed: / Admit/Disch: 04/27/23 [...] Nanci Luna Role Performed Surgeon - Primary Jewelry Technician - Primary Scrub - Primary Time In [...] bladder Outcomes Met? Yes Last Modified By: Edgadr ZELAYA, PAULINA, Cheryl 04/27/23 10:55:56 Post-Care Text: [...] By: PAULINA Rene RN, Ruthann 04/27/23 11:02 [facility] Main OR Preoperative Recordo n 04-27-2023 Main OR Preoperative Record Holding Area Document Type FTURO Summary Primary Physician: Lionel CARRINGTON MD Finalized Date/Time: 04/27/23 10:26:02 Pt. Name: MARY DIAZ/Sex: 1950 Male Med Rec #: [id number] Physician: Lionel CARRINGTON MD Financial #: [id number] Pt. Type: O Room/Bed: / Admit/Disch: 04/27/23 [...] Complaints of Pain: No Skin Integrity Intact, [place], Warm, & Dry Vitals - EU Blood Pressure 167/96 Pulse 76 bpm Respirations 20 br/min SPO2 97 % Last Modified By: Avani Costello LPN 04/27/23 10:25:57 General Comments: Temp 36.7 Finalized By: Avani Costello LPN Document Signatures Signed By: Avani Costello LPN 04/27/23 10:26 Normal [facility] Operative Reporton Operative Report Patient: MARY [...] a surveillance cystoscopy in 6 months.. Normal [facility] Comment on above: Result Comment: Elec tronically Signed By: DEVONTE NOBLE, Lionel Ernandez\Date and Time Signed: 04/27/23 11:04 EST Outpatient Surgery Discharge Instructionon 04-27-2023 Outpatient Surgery Discharge Instruction [id number] #1.00TIFF Normal [facility] Reminderson 04-27-2023 Reminders - From: Loretta Simons To: EU - Recalls Devonte; Cc: Loretta Simons; Sent: 03/05/2023 14:06:16 EDT Show up: 07/22/2023 14:06:00 EST Subject: Cysto/fish/cytol, Due Date/Time: 08/09/2023 14:06:00 EST Reminder/Recall Patient is due in August 2023 for 4 month cysto/fish/cytol (bt ck), ? PSA Pt will be due in October 2023 for 6 month cysto Normal [facility] UroVysion Fish and Urine Cyt o ([facility])on 04-27-2023 [facility] Method of Extraction Voided Normal [facility] Comment on above: Performed By: #### 1 [id number] #### [facility] Laboratory [address] [place] [address] [facility] Number of Jars 1 Invalid Interpretation Code [facility] Comment on above: Performed By: #### 1 [id number] #### [facility] [address] [place] [address] [facility] Specimen Urine Normal [facility] Comment on above: Performed By: #### 1 [id number] #### [facility] [address] [place] [address] [facility] Type of Service Technical Only Normal [facility] Comment on above: Performed By: #### 1 [id number] #### [facility] Laboratory [address] [place] [address] Outside Colonoscopyon 2022 Outside Colonoscopy [id number] #1.00CD:127 [facility] Reminderson 03-16-2023 Reminders - From: Stephanie Fletcher LPN To: N - Clinical; Sent: 03/16/2023 07:57:36 EDT Show up: 02/08/2028 07:00:00 EDT Subject: colonoscopy recall Due Date/Time: 03/10/2028 07:00:00 EDT Reminder/Recall Patient due for surveillance colonoscopy 03/10/2028 due to history of colonic polyps. [facility] Reminderson 03-05-2023 Reminders - From: [...] sched for 4 month cysto 04/27/23 at [facility]. He will be due in August 2023.LG new thread [facility] Consent for Procedure/Surger yon 02-11-2023 Consent for Procedure/Surgery [id number]# 1.00CD:127 [facility] Ambulatory Visit Summaryon 0 02-10-2023 [...] Lionel Burgos Where: [facility] Normal [facility] Lab Reportson 02-03-2023 Lab Reports [id number] #1.00CD:127 Normal [facility] Physician Referralon 023 Physician Referral [id number] #1.00CD:127 [facility] UroVysion Fish and Urine Cyt o ([facility])on 02-03-2023 [facility] UC Revision Information Invalid Interpretation Code [facility] Comment on above: Result Comment: Jimbo ection Reason -[ To Nur, 02/03/23 - 12:32 ] Corrected report issued to update PMS/PWS. The diagnosis remains unchanged. Correction Notes - Performed By: #### 1 [id number] #### [facility] Laboratory [address] [place] [address] Lab Reportson 01-29-2023 Lab Reports [id number] #1.00CD:127 Normal [facility] Operative Reporton Operative Report [id number] #1.00CD:127 Normal [facility] Ambulatory Visit Summaryon 0 01-20-2023 Ambulatory [...] Melba Normal [address] [place] [address] [place] [address]- \.br\ You Need to Schedule the Following Appointments\.br \ Follow Up with DEVONTE NOBLE, Lionel Burgos, URL When: \.br\ Comments:\.br\ sched cysto\.br\ Where:\.br\ [facility] [address]\.br\ [place] [address]-\.br\ [phone]\.br\ Medications\.br\ What How Much When Instructions\.br \ New ciprofloxacin (Cipro 500 mg Tab) 1 Tablets By Mouth Every day take one tab day before procedure and one tab after procedure Pickup at [facility]/pharmacy #[id number]\.br\ Unchanged sildenafil (sildenafil 100 mg Tab) 1 [...] if questions or concerns \.br\ Pharmacy Information\.br\ [facility]/pharmacy #[id number]: [address], [place] [phone]\.br\ Allergies\.br\ Percocet 5/325\.br\ codeine (hives/rashes)\. br\ Problems\.br\ [...] these instructions at home:\.br\ ? \.br\ Take ctdx-pba-cctddrb and prescription medicines only as told by [...] Where to find more information\.br\ ? \.br\ [place] [employer] Society (ACS): cancer.org\.br\ ? \.br\ National Cancer [place] (NCI): cancer.gov\.br\ Contact a health care provider [...] based on the stage of your cancer.\.br\ [facility] Ambulatory Visit Summary MARY DIAZ :1950 [...] With: Qamar SMITH MD Where: General Surgery Nill/Greg Reilly Normal [address] [place] [address]- \.br\ You Need to Schedule the Following Appointments\.br \ Follow Up with DEVONTE NOBLE, Lionel R, URL When: \.br\ Comments:\.br\ sched cysto\.br\ Where:\.br\ [facility] [address]br\ [place] [address].br\ [phone]\.br\ Medications\.br\ What How Much When Instructions\.br \ [...] these instructions at home:\.br\ ? \.br\ Take opou-fjd-uganzuv and prescription medicines only as told by [...] Where to find more information\.br\ ? \.br\ [place] [employer] Society (ACS): cancer.org\.br\ ? \.br\ National Cancer [place] (NCI): cancer.gov\.br\ Contact a health care provider [...] to you by your health care pro [facility] Pathology Noteon 01-20-2023 Pathology Note [id number] #1.00CD:127 Normal [facility] Patient Educationon 01-21-20 23 Patient Education Oncology [...] Follow these instructions at home: ? Take wywd-crz-zwgopiw and prescription medicines only as told by [...] important. Where to find more information ? [place] Cancer [employer] (ACS): cancer.org ? National Cancer [place] (NCI): cancer.gov Contact a health care provider [...] wi (more content not included)... Normal [facility] Urology Office/Clinic Noteon 01-20-2023 Urology Office/Clinic [...] When Contact Information DEVONTE NOBLE, Lionel Burgos, RUSLANL [facility] [address], [place] [phone] Additional Instructions: sched cysto Patient Education Bladder [...] of th (more content not included)... Normal [facility] Comment on above: Result Comment: Elec tronically Signed By: Lionel CARRINGTON MD\.br\Date and Time Signed: 01/20/23 11:40 EDT\.br\Electronically Co-Signed By: Lilo Zhou.br\Date and Time Co-Signed: 01/20/23 11:37 EDT Lab Reportson 01-11-2023 Lab Reports [id number] #1.00CD:127 [facility] Consent for Procedure/Surger yon 01-05-2023 Consent for Procedure/Surgery [id number]#1.00CD:127 [facility] Consent for Treatmenton 12-19 Consent for Treatment [id number] #1.00CD:127 Normal [facility] IntraOperative Documentson 0 01-05-2023 IntraOperative Documents [id number]#1.00CD:127 Normal [facility] Main [place] Intraoperative Recor don 01-05-2023 Main OR Intraoperative Record IntraOp Document Type FTURO Summary Primary Physician: Lionel CARRINGTON MD Finalized Date/Time: 01/05/23 10:57:53 Pt. Name: EMILYMARY/Sex: 1950 Male Med Rec #: [id number] Physician: Lionel CARRINGTON MD Financial #: [id number] Pt. Type: O Room/Bed: / Admit/Disch: 01/05/23 [...] Zora Luna Role Performed Surgeon - Primary Jewelry Technician - Primary Scrub - Primary Time In 01/05/23 10:38:00 01/05/23 10:38:00 01/05/23 10:38:00 Time Out 01/05/23 10:54:00 01/05/23 10:54:00 01/05/23 10:54:00 Procedure CYSTOSCOPY LOCAL(.) CYSTOSCOPY LOCAL(.) CYSTOSCOPY LOCAL(.) Comments Last Modified By: Edgard RN, EDITHOR, Edgard RN, EDITHOR, Edgard ZELAYA, EDITHOR, Cheryl [...] PAULINA Rene RN, Ruthann 01/05/23 10:57 Normal [facility] Main OR Preoperative Recordo n 01-05-2023 Main OR Preoperative Record Holding Area Document Type FTURO Summary Primary Physician: Lionel CARRINGTON MD Finalized Date/Time: 01/05/23 10:43:08 Pt. Name: MARY DIAZ./Sex: 1950 Male Med Rec #: [id number] Physician: Lionel CARRINGTON MD Financial #: [id number] Pt. Type: O Room/Bed: / Admit/Disch: 01/05/23 [...] PAULINA Rene RN, Ruthann 01/05/23 10:43 Normal [facility] Operative Reporton Operative Report Patient: MARY DIAZ Age: 72 years Sex: Male : 1950 Associated Diagnoses: None Author: DEVONTE NOBLE, Lionel Burgos Procedure Operative Information Details: Date/ Time: 01/05/2023 [...] tumor has developed in these areas.. Normal [facility] Comment on above: Result Comment: Elec tronically Signed By: DEVONTE NOBLE, Lionel Ernandez\Date and Time Signed: 01/05/23 10:59 EDT UroVysion Fish and Urine Cyt o ([facility])on 01-05-2023 [facility] Method of Extraction Bladder Wash Normal [facility] Comment on above: Performed By: #### 1 [id number] #### [facility] Laboratory [address] [place] [address] [facility] Number of Jars 1 Invalid Interpretation Code [facility] Comment on above: Performed By: #### 1 [id number] #### [facility] Laboratory [address] [place] [address] [facility] Specimen Urine Normal [facility] Comment on above: Performed By: #### 1 [id number] #### [facility] Laboratory [address] [place] [address] [facility] Type of Service Technical Only Normal [facility] Comment on above: Performed By: #### 1 [id number] #### [facility] Laboratory [address] [place] [address] MR lumbar spine wo conon MR lumbar spine wo con [facility] [place] [address] MRI Report Signed Patient: Mary Diaz MR#: [id number] : 1950 Acct:[id number] Age/Sex: 72 / M ADM Date: 01/01/23 Loc: MR Room: Type: [facility] Attending Dr: Zoran Chaevz MD Copies to: Zoran Chavez MD Ordering [...] Jamaica Alas M.D.01/01/2023 2:48 PM Dictation Location: [place] [address] Transcribed By: [facility] 01/01/23 1448 Dictated By: Jamaica Alas II, MD 01/01/231440 Signed By: 01/01/23 1448 [facility] - Clinical Noteon Retail - Clinical Note [id number] #1.00CD:127 Normal [facility] XR CSPINE MIN 4 VIEWSon 0 XR CSPINE MIN 4 VIEWS EXAMINATION: XR [...] by: ALLI CORTES Date: 2022-10-23 11:53 Normal [facility] XR LSPINE W_OBLS AND FLEX_EX Ton 10-23-2022 XR LSPINE W_OBLS AND FLEX_EXT EXAM: XR LSPINE W_OBLS AND FLEX_EXT HISTORY: Low back pain COMPARISON: None. TECHNIQUE: 2 views Findings/impression: Retrolisthesis of L2 over L3 by 4 mm. Multilevel endplate degenerative changes, disc disease, and anterior spurring. Calcified atherosclerotic disease of aorta. No acute fracture. Electronically authenticated by: JAMAICA GONZALEZ Date: 2022-10-23 13:18 Normal [facility] BNPon 10-06-2022 Natriuretic peptide B (Bld) [Mass/Vol] 844.0 pg/mL Normal <=900.0 [facility] Comment on above: Performed By: #### C VDTBH #### [facility] [address] [place] [address] Dr. Johnna Dixon CBC AUTO DIFFon 10-06-2022 BASO # 0.0 103/ul Normal 0.0-0.1 [facility] Comment on above: Performed By: #### C BC #### [facility] [address] [place] [address] Dr. Johnna Dixon Basophils/100 WBC (Bld) 0.0 % Critically low 0.2-2.0 [facility] Comment on above: Performed By: #### C BC #### [facility] [address] [place] [address] Dr. Johnna Dixon EO # 0.0 103/ul Normal 0.0-0.7 [facility] Comment on above: Performed By: #### C BC #### [facility] [address] [place] [address] Dr. Johnna Dixon Eosinophils/100 WBC (Bld) 0.0 % Critically low 0.9-7.0 [facility] Comment on above: Performed By: #### C BC #### [facility] [address] [place] [address] Dr. Johnna Dixon Erythrocyte distribution width (RBC) [Ratio] 13.9 % Normal 11.0-15.0 [facility] Comment on above: Performed By: #### C BC #### [facility] [address] [place] [address] Dr. Johnna Dixon Hematocrit (Bld) [Volume fraction] 33.6 % Critically low 42.0-54.0 [facility] Comment on above: Performed By: #### C BC #### [facility] [facility] [address] [place] [address] Dr. Johnna Dixon Hemoglobin (Bld) [Mass/Vol] 11.1 g/dL Critically low 14.0-18.0 [facility] Comment on above: Performed By: #### C BC #### [facility] [address] [place] [address] Dr. Johnna Dixon IG # 0.03 10e3/ul Normal 0.00-0.03 [facility] Comment on above: Performed By: #### C BC #### [facility] [address] [place] [address] Dr. Johnna Dixon IG % 0.5 % Normal 0.0-0.5 [facility] Comment on above: Performed By: #### C BC #### [facility] [address] [place] [address] Dr. Johnna Dixon LYMPH # 0.7 103/ul Critically low 1.2-3.8 [facility] Comment on above: Performed By: #### C BC #### [facility] [address] [place] [address] Dr. Johnna Dixon Lymphocytes/100 WBC (Bld) 11.5 % Critically low 20.5-60.0 [facility] Comment on above: Performed By: #### C BC #### [facility] [address] [place] [address] Dr. Johnna Dixon MANUAL DIFF REQ NO Normal [facility] Comment on above: Performed By: #### C BC #### [facility] [address] [place] [address] Dr. Johnna Dixon MCH (RBC) [Entitic mass] 31.0 pg Normal 25.9-34.0 [facility] Comment on above: Performed By: #### C BC #### [facility] [address] [place] [address] Dr. Johnna Dixon MCHC (RBC) [Mass/Vol] 33.0 g/dL Normal 29.9-35.2 [facility] Comment on above: Performed By: #### C BC #### [facility] [address] [place] [address] Dr. Johnna Dixon MCV (RBC) [Entitic vol] 93.9 fL Normal 80.0-94.0 [facility] Comment on above: Performed By: #### C BC #### [facility] [address] [place] [address] Dr. Johnna Dixon MONO # 0.3 103/ul Normal 0.3-0.8 [facility] Comment on above: Performed By: #### C BC #### [facility] [address] [address] [address] Johnna Dixon Monocytes/100 WBC (Bld) 4.5 % Normal 1.7-12.0 [facility] Comment on above: Performed By: #### C BC #### [facility] [address] [address] [address] Johnna Dixon NEUT # 5.0 103/ul Normal 1.4-6.5 [facility] Comment on above: Performed By: #### C BC #### [facility] [address] [address] [address] Johnna Dixon Neutrophils/100 WBC (Bld) 83.5 % Critically high 43.0-75.0 [facility] Comment on above: Performed By: #### C BC #### [facility] [address] [place] [address] Dr. Johnna Dixon Platelet mean volume (Bld) [Entitic vol] 10.3 fL Normal 9.5-13.5 [facility] Comment on above: Performed By: #### C BC #### [facility] [address] [place] [address] Dr. Johnna Dixon PLT 184 103/ul Normal 150-450 [facility] Comment on above: Performed By: #### C BC #### [facility] [address] [place] [address] Dr. Johnna Dixon RBC 3.58 106/ul Critically low 4.70-6.10 [facility] Comment on above: Performed By: #### C BC #### [facility] [address] [place] [address] Dr. Johnna Dixon WBC 6.0 103/ul Normal 4.0-11.0 [facility] Comment on above: Performed By: #### C BC #### [facility] [address] [place] [address] Dr. Johnna Dixon PROF 14(COMP METB)on 023 Albumin [Mass/Vol] 2.7 g/dL Critically low 3.4-5.0 [facility] Comment on above: Performed By: #### C VDTBH #### [facility] [address] [address] [address] Johnna Dixon Albumin/Globulin [Mass ratio] 0.9 {ratio} Normal [facility] Comment on above: Performed By: #### C VDTBH #### [facility] [address] [address] [address] Johnna Dixon ALP [Catalytic activity/Vol] 32 U/L Critically low 46-116 [facility] Comment on above: Performed By: #### C VDTBH #### [facility] [address] [address] [address] Johnna Dixon ALT [Catalytic activity/Vol] 19 U/L Normal 16-63 [facility] Comment on above: Performed By: #### C VDTBH #### [facility] [address] [address] [address] Johnna Dixon Anion gap [Moles/Vol] 14.0 mmol/L Normal [facility] Comment on above: Performed By: #### C VDTBH #### [facility] [address] [address] [address] Johnna Dixon AST [Catalytic activity/Vol] 12 U/L Critically low 15-37 [facility] Comment on above: Performed By: #### C VDTBH #### [facility] [address] [address] [address] Johnna Dixon Bilirubin [Mass/Vol] 0.6 mg/dL Normal 0.2-1.0 [facility] Comment on above: Performed By: #### C VDTBH #### [facility] [address] [address] [address] Johnna Dixon Calcium [Mass/Vol] 8.3 mg/dL Critically low 8.5-10.1 [facility] Comment on above: Performed By: #### C VDTBH #### [facility] [address] [address] [address] Johnna Dixon Chloride [Moles/Vol] 107 mmol/L Normal 98-107 [facility] Comment on above: Performed By: #### C VDTBH #### [facility] [address] [address] [address] Johnna Dixon CO2 [Moles/Vol] 24.9 mmol/L Normal 21.0-32.0 [facility] Comment on above: Performed By: #### C VDTBH #### [facility] [address] [address] [address] Johnna Dixon Creatinine [Mass/Vol] 1.20 mg/dL Normal 0.70-1.30 [facility] Comment on above: Performed By: #### C VDTBH #### [facility] [address] [address] [address] Johnna Dixon EGFR-AF TOGOLESE >60 Normal >=60 [facility] Comment on above: Performed By: #### C VDTBH #### [facility] [address] [address] [address] Johnna Dixon EGFR-NON AF TOGOLESE 60 mL/min/1.73m2 Normal >=60 [facility] Comment on above: Performed By: #### C VDTBH #### [facility] [address] [address] [address] Johnna Dixon Globulin (S) [Mass/Vol] 2.9 g/dL Normal [facility] Comment on above: Performed By: #### C VDTBH #### [facility] [address] [address] [address] Johnna Dixon Glucose [Mass/Vol] 153 mg/dL Critically high 74-106 T [facility] Comment on above: Performed By: #### C VDTBH #### [facility] [address] [address] [address] Johnna Dixon Potassium [Moles/Vol] 3.9 mmol/L Normal 3.5-5.1 [facility] Comment on above: Performed By: #### C VDTBH #### [facility] [address] [address] [address] Johnna Dixon Protein [Mass/Vol] 5.6 g/dL Critically low 6.4-8.[address] [facility] Comment on above: Performed By: #### C VDTBH #### [facility] [address] [place] [address] Dr. Johnna Dixon Sodium [Moles/Vol] 142 mmol/L Normal 136-145 [facility] Comment on above: Performed By: #### C VDTBH #### [facility] [address] [place] [address] Dr. Johnna Dixon Urea nitrogen [Mass/Vol] 14.0 mg/dL Normal 7.0-18.0 [facility] Comment on above: Performed By: #### C VDTBH #### [facility] [address] [place] [address] Dr. Johnna Dixon Urea nitrogen/Creatinine [Mass ratio] 11.7 mg/mg Normal [facility] Comment on above: Performed By: #### C VDTBH #### [facility] [address] [place] [address] Dr. Johnna Dixon CBC AUTO DIFFon 10-05-2022 BASO # 0.0 103/ul Normal 0.0-0.1 [facility] Comment on above: Performed By: #### S PUTGS #### [facility] [address] [place] [address] Dr. Johnna Dixon Basophils/100 WBC (Bld) 0.2 % Normal 0.2-2.0 [facility] Comment on above: Performed By: #### S PUTGS #### [facility] [address] [place] [address] Dr. Johnna Dixon EO # 0.0 103/ul Normal 0.0-0.7 [facility] Comment on above: Performed By: #### S PUTGS #### [facility] [address] [place] [address] Dr. Johnna Dixon Eosinophils/100 WBC (Bld) 0.2 % Critically low 0.9-7.0 [facility] Comment on above: Performed By: #### S PUTGS #### [facility] [address] [place] [address] Dr. Johnna Dixon Erythrocyte distribution width (RBC) [Ratio] 14.1 % Normal 11.0-15.0 [facility] Comment on above: Performed By: #### S PUTGS #### [facility] [address] [place] [address] Dr. Johnna Dixon Hematocrit (Bld) [Volume fraction] 39.9 % Critically low 42.0-54.0 [facility] Comment on above: Performed By: #### S PUTGS #### [facility] [address] [place] [address] Dr. Johnna Dixon Hemoglobin (Bld) [Mass/Vol] 12.8 g/dL Critically low 14.0-18.0 [facility] Comment on above: Performed By: #### S PUTGS #### [facility] [address] [place] [address] Dr. Johnna Dixon IG # 0.01 10e3/ul Normal 0.00-0.03 [facility] Comment on above: Performed By: #### S PUTGS #### [facility] [address] [place] [address] Dr. Johnna Dixon IG % 0.2 % Normal 0.0-0.5 [facility] Comment on above: Performed By: #### S PUTGS #### [facility] [address] [place] [address] Dr. Johnna Dixon LYMPH # 0.7 103/ul Critically low 1.2-3.8 [facility] Comment on above: Performed By: #### S PUTGS #### [facility] [address] [place] [address] Dr. Johnna Dixon Lymphocytes/100 WBC (Bld) 14.3 % Critically low 20.5-60.0 [facility] Comment on above: Performed By: #### S PUTGS #### [facility] [address] [place] [address] Dr. Johnna Dixon MANUAL DIFF REQ NO Normal [facility] Comment on above: Performed By: #### S PUTGS #### [facility] [address] [place] [address] Dr. Johnna Dixon MCH (RBC) [Entitic mass] 30.7 pg Normal 25.9-34.0 [facility] Comment on above: Performed By: #### S PUTGS #### [facility] [address] [place] [address] Dr. Johnna Dixon MCHC (RBC) [Mass/Vol] 32.1 g/dL Normal 29.9-35.2 [facility] Comment on above: Performed By: #### S PUTGS #### [facility] [address] [place] [address] Dr. Johnna Dixon MCV (RBC) [Entitic vol] 95.7 fL Critically high 80.0-94.0 [facility] Comment on above: Performed By: #### S PUTGS #### [facility] [address] [place] [address] Dr. Johnna Dixon MONO # 0.6 103/ul Normal 0.3-0.8 [facility] Comment on above: Performed By: #### S PUTGS #### [facility] [address] [place] [address] Dr. Johnna Dixon Monocytes/100 WBC (Bld) 12.5 % Critically high 1.7-12.0 [facility] Comment on above: Performed By: #### S PUTGS #### [facility] [address] [place] [address] Dr. Johnna Dixon NEUT # 3.6 103/ul Normal 1.4-6.5 [facility] Comment on above: Performed By: #### S PUTGS #### [facility] [address] [place] [address] Dr. Johnna Dixon Neutrophils/100 WBC (Bld) 72.6 % Normal 43.0-75.0 [facility] Comment on above: Performed By: #### S PUTGS #### [facility] [address] [place] [address] Dr. Johnna Dixon Platelet mean volume (Bld) [Entitic vol] 9.5 fL Normal 9.5-13.5 [facility] Comment on above: Performed By: #### S PUTGS #### [facility] [address] [place] [address] Dr. Johnna Dixon PLT 213 103/ul Normal 150-450 [facility] Comment on above: Performed By: #### S PUTGS #### [facility] [address] [place] [address] Dr. Johnna Dixon RBC 4.17 106/ul Critically low 4.70-6.10 [facility] Comment on above: Performed By: #### S PUTGS #### [facility] [address] [place] [address] Dr. Johnna Dixon WBC 5.0 103/ul Normal 4.0-11.0 [facility] Comment on above: Performed By: #### S PUTGS #### [facility] [address] [place] [address] Dr. Johnna Dixon CULTURE BLOODon 10-05-2022 Microscopic examination of blood, culture Culture Observations: NO GROWTH AT 5 DAYS. Normal [facility] Comment on above: Performed By: #### B LDCX2 #### [facility] [address] [place] [address] Dr. Johnna Dixon Microscopic examination of blood, culture Culture Observations: NO GROWTH AT 5 DAYS. Normal [facility] Comment on above: Performed By: #### S PUTGS #### [facility] [address] [place] [address] Dr. Johnna Dixon CULTURE SPUTUMon 10-05-2022 CULTURE SPUTUM Culture Observations: NORMAL RESPIRATORY JONATAN. Normal [facility] Comment on above: Performed By: #### S PUTGS #### [facility] [address] [place] [address] Dr. Johnna Dixon Covid-19 PCR (CVDTB)on 09-19 SARS-CoV-2 (COVID-19) RNA REX+probe Ql (Unsp spec) Not detected Normal NOT DETECTED [facility] Comment on above: Result Comment: This test is not yet approved or cleared by the [place] FDA. When there are no FDA-approved or cleared tests available, and other criteria are met, FDA can make tests available under an emergency access mechanism called an Emergency Use Authorization (EUA). The EUA for this test is supported by the Contract Lead of Health and Human Service's (HHS's) declaration [...] SARS-CoV-2. Performed By: #### C VDTBH #### [facility] [address] [place] [address] Dr. Johnna Dixon LACTATE/LACTIC ACIDon 2022 Lactate [Moles/Vol] 1.2 mmol/L Normal 0.4-2.0 [facility] Comment on above: Performed By: #### L ACT #### [facility] [address] [place] [address] Dr. Johnna Dixon Lactate [Moles/Vol] 2.4 mmol/L Critically high 0.4-2.0 [facility] Comment on above: Performed By: #### L ACT #### [facility] [address] [place] [address] Dr. Johnna Dixon Lab Reportson 10-05-2022 Lab Reports [id number] #[id number]:127 Normal [facility] PROF CHEM 8 (BAS METB)on Anion gap [Moles/Vol] 12.6 mmol/L Normal [facility] Comment on above: Performed By: #### B MP #### [facility] [address] [place] [address] Dr. Johnna Dixon Calcium [Mass/Vol] 8.9 mg/dL Normal 8.5-10.1 [facility] Comment on above: Performed By: #### B MP #### [facility] [address] [place] [address] Dr. Johnna Dixon Chloride [Moles/Vol] 106 mmol/L Normal 98-107 [facility] Comment on above: Performed By: #### B MP #### [facility] [address] [address] [address] Johnna Dixon CO2 [Moles/Vol] 25.8 mmol/L Normal 21.0-32.0 [facility] Comment on above: Performed By: #### B MP #### [facility] [address] [address] [address] Johnna Dixon Creatinine [Mass/Vol] 1.41 mg/dL Critically high 0.70-1.30 [facility] Comment on above: Performed By: #### B MP #### [facility] [address] [address] [address] Johnna Dixon EGFR-AF TOGOLESE >60 Normal >=60 [facility] Comment on above: Performed By: #### B MP #### [facility] [address] [place] [address] Dr. Johnna Dixon EGFR-NON AF TOGOLESE 50 mL/min/1.73m2 Critically low >=60 [facility] Comment on above: Performed By: #### B MP #### [facility] [address] [address] [address] Johnna Dixon Glucose [Mass/Vol] 111 mg/dL Critically high 74-106 T [facility] Comment on above: Performed By: #### B MP #### [facility] [address] [address] [address] Johnna Dixon Potassium [Moles/Vol] 3.4 mmol/L Critically low 3.5-5.1 [facility] Comment on above: Performed By: #### B MP #### [facility] [address] [address] [address] Johnna Dixon Sodium [Moles/Vol] 141 mmol/L Normal 136-145 [facility] Comment on above: Performed By: #### B MP #### [facility] [address] [address] [address] Johnna Dixon Urea nitrogen [Mass/Vol] 17.0 mg/dL Normal 7.0-18.0 [facility] Comment on above: Performed By: #### B MP #### [facility] [address] [address] [address] Johnna Dixon Urea nitrogen/Creatinine [Mass ratio] 12.1 mg/mg Normal [facility] Comment on above: Performed By: #### B MP #### [facility] [address] [address] [address] Johnna Dixon SPUTUM GRAM STAINon 10-06-19 COMMENTS Normal [facility] Comment on above: Performed By: #### S PUTGS #### [facility] [address] [place] [address] Dr. Johnna Dixon DIPHTHEROIDS [facility] Comment on above: Performed By: #### S PUTGS #### [facility] [address] [place] [address] Dr. Johnna Dixon EPITHELIALS <25 Normal [facility] Comment on above: Performed By: #### S PUTGS #### [facility] [address] [place] [address] Dr. Johnna Dixon FUNGAL ELEMENTS Normal [facility] Comment on above: Performed By: #### S PUTGS #### [facility] [address] [address] [address] Johnna Dixon GRAM NEG BACILLI FEW [facility] Comment on above: Performed By: #### S PUTGS #### [facility] [address] [place] [address] Dr. Johnna Dixon GRAM NEG DIPPLOCOCCI Normal [facility] Comment on above: Performed By: #### S PUTGS #### [facility] [address] [address] [address] Johnna Dixon GRAM POS BACILLI [facility] Comment on above: Performed By: #### S PUTGS #### [facility] [address] [place] [address] Dr. Johnna Dixon GRAM POSITIVE COCCI FEW [facility] Comment on above: Performed By: #### S PUTGS #### [facility] [address] [place] [address] Dr. Johnna Dixon WBC (Bld) [#/Vol] 10*3/uL [facility] Comment on above: Performed By: #### S PUTGS #### [facility] [address] [place] [id number] [address] Johnna Dixon SYMPTOMATIC COVID-19 ANTIGEN on 10-05-2022 EUA Statement SEE BELOW Normal [facility] Comment on above: Result Comment: This [...] sooner. Performed By: #### C VDAGS #### [facility] [address] [place] [address] Dr. Johnna Dixon SARS-CoV-2 (COVID-19) RNA REX+probe Ql (Unsp spec) Negative Normal NEGATIVE [facility] Comment on above: Performed By: #### C VDAGS #### [facility] [address] [place] [address] [id number] [address] Johnna Dixon XR CHEST 1 Von [...] SOCORRO SERRANO Date: 2022-10-05 11:44 Normal [facility] Coding Summary.on 10-01-2022 Coding Summary. CD:[id number] Ww+PGhlYWQ+MQ2QKUQmT 72maQIwrH1uM8HPIIjRA ywgQVBQTElOSyIgbmFtZ R2srPHxUYZs IC8+WP2rBRGjTadxlSAk o6S9gNT5G22izt5vJZke kMJ5RNToKpIeyjqux3bq jGi7FGzyHdpoOoSc DMAdhF13QSO4gH30Zx70 pXVfgQXdj9ffqEs3TdUo XCLiSJK7qLzdNWpat9Zc PJFxP24seYHnw8P7 IGNvbGxhcHNlOyBlbXB0 xV3qTGfkiuxjc0hwgbbq Cve0vw76wXDnm4L7pEW5 B0VrwgZ5RVKdcONf HmogrNSDjR5bnozlz9vh coxtNvQzEDCnCXg0NZe7 MPRwlQxkQlTdHI28CMO7 HRLwgsZjC3UdBKZl lOhmVrB0b4P9Zf0HE7XK AblkX4RLLAGTTIdzfZK+ XD78vq37J8GrDvnuQau6 UBKfXOM1cWK0gL4q XSRdZAomr9Q5fFI2J0Rc wyCgda1mf7amPUTcGPzt E23vpORnr9L3MFTyqVZ6 GBZjvLbmJlIkjS87 Oyc+OYRgdCiqk2DaRdkk e3uht6kqhVz1OipkYJPd obLbvJcpGPZ5y8IrIq2u KNEusQY8uUK7oN1n TfTsPsU0DDheP910JwLd cPGzYpqhK85hN7JixWH+ DDLeLqz9UOFkuZmkUJ3n Z8KiOUJsxkzqjOBk jRorXA7eWQUprzitQNGv dX0jIHUtB0c7EaXsJlU4 DLwxG8KjYQTsexrkJq20 kE0hXnRtHlD5ZBwf B3NjleX9DFGheNEqKNph HUJ7F28ff4W9APXiUIXd TKJ0wZW5lA3ktJzgwkub bGVmdDsgdmVydGlj PCcqHPvoA928XWKimDoq PkNvZGluZyBEYXRlOiAg MDQvMTMvMjAyMzwvdGQ+ XZJkBDG0dGdfENUt bSGyVNaySl9mfQumlDxo WL7pFYIaskqvKIOymF7y HOJtyBLezGumIA6pUQQd rlual939FbRuHJW9 EKGinHBzO7KfkF9rTpFv EMAmWZAaO3KqeKNoKGcq A310FPhoCuM6BUBhwuLm Z2SgSKQahGluCwW6 d4F3Wi6Vx3XjndjrN6Uw gWYvTpYbWlisBEh4V6Lt PjwvdHI+NY50NNLwQY85 EYc4FJN7oSsbFDce MZKmM8EosL3hPzOiUECr ZGRkOyc+PHRhYmxlIHdp ZHRoPScxMDAlJyBzdHls OK3uCd8qMVQgYEUs kOfanEYbOiSvb8nnFZFn AHxdBM5soXqvH7YjeKA9 PFIwi3p2Vc27Z53cW2Dp dXA+TISmcNN7xUC5 nL3aTkOsFyF4QIfcX822 RdSzqZFoOhsze4fbz5az fSp4YnA7TWSzuhMnuQqk CUO0h8QpUr96T12j IHdpZHRoPSIxNSUiIHZh hKzzgf4rwX8iHb5+PGNv rGY9fZQ7fY2rMkYsAjK4 MHysC266YkCltOGr Tfngq1lqi0byoQz5TsUq UBDuliIlpIvaSLS0n2Oo Zo31D4JbqMzql8FyZmh4 th13gNCpj5K5iOP8 Q3VtBOBemvytmIBzvGgo KX7oMHEruqslKIUxiL4e YYZnJ1g4VnYhRdR0GEec B3JwecC0INCrwRBc GVOhpSSXxH9eiptic2xs wymkUgHcKZDkFLu8DYy0 UJZdcNcwZpTqQSG0NpL0 ASX2hPQlcT6wbTag vilavX0fBch+BYO8tVYp yWHXSE7oXwtdrKV+PHRk KCD0eIkqUZqlRHDumO1p UKKgC8z8NuWjTsB3 SXptL7SiepE4EWQwbFTm TLGarUADkL1xrukkn2bt bxedEeThGKUqSBq7IEj7 LWFsaWduOiBsZWZ0 ViB5LUI6xVDlvI0iiTgk ygrsyF4rDld+QmlydGgg NUX4AQb5N6EtQel8UOOy nIvlGI7ltICtQSuy Ll4eyYsdjEpdQG7hUTJs fsxxs170HtXcr0ggIJNx wPQoARkdJWR7Z32be0O7 HMQnOCTcYFD6pFE8 eU7jgGfinnhncUEruJww sfUuqQarDTykPJatT494 BUCcxVizCfFiLWo6E6Mi Bxo1XRPxsKdsDT3f wEVpONxcZr6nlWmrkEqy SU9cCGHiclarg434QsAd h0oyYHJqrWAbXOnvPTW8 X74zy1H9UGBrKSEl UOI4vTC5qH2keOnexugk bGVmdDsgdmVydGljYWwt DVokV813DXGbuOjeEcCm vBr7H6TnRwc9CWUb kVeeMZ8rwGAlABtqAn2f qMljfHblCZ9gQNGcetix f355TbCzh9yxBYDurLBv YXuzVAG7B35wf1K8 RDEhFWKeELM7fNS2lU2r bGlnbjogbGVmdDsgdmVy eIygSCdmXDxxU949GDQx cDsnPlBhdGllbnQg XKqkYNr0V2UzTcoltXW+ QV31JHMwTK94gYYnsYSd q7lykBl4OxCbPBQlYFK2 lGegBIpzq9DwKKAe O57waGPux8T7JHDxeYaf dKKnDgUliJS5iV9xNTty twxqz6epkftjMaygz8ic pd76uK76P88gCZjs ZHRoPSIzMCUiIHZhbGln sm9hnW5gPg7+PGNvbCB3 vUO9mK0vTWNuNbT8BXkk R459SfThcHYdQsyt n0xmb4lszGf7LbK5EBWh unWzqNzhHON4w1AuDz45 A94kREbkVNFoKRVvOXCu DZPfmFgyue7msN8k Ii8+YPMexXI3xXT1uL7c BxSzYmA2VRsoQ891RgUz lMViYwdaP32dR9FgiVC+ XSZrUqn0KLZagRdn NX1fsFJhPXexAf6mPXH0 KrBrBrNuONxdZ8IsPWFq vkzbflyltTB6ZAZqSZAd cI71Oq3hbMmdASSt iLYHzY1mcvzkz5ivxaja FbVyJRLxBWt6ODw0FJXy vWtyLaSvXPE5GuE5IGC6 yMSptI2vaQzopbmp uQ9mZ0ZuXXKvxxabHd34 wU7uTgCiGoV1SHdgXxs+ X4sOZyzICDKpEOnCUSGB OY16X3KhOpm4REPv gJiwAK0uxKHzYFxtGs7d tQjcxQmvTY4vCTOvhqjg UNScoE3bDDSrgDXgcFqd WW1rDZEpsalyw504 AhBfZJI9LKInoYRsY6Xg pH4tAsQfALAfARCiU1Ig xKTtNTufF118QCarDjB0 PGYcyhLgR5CoFJRb hOsmDnH5d3Z9Wh7yAG6j II1eRULdGP30UW40gPCc d1E6aKW4B2VqOHSqatbr srlhkHA8SRRlMFQl rM05pLEbONoqAt0af8T6 h301UXZlSXXtqG28Fo9l uAxeDXUouAOKyA4ahhqr e9xoevfkKfKmDWAv YLi5GSw2XEPodGplJrFb BKA7ImL6BMJ6xMKeqV7k cWvapqzjpI4kMix+NzEg QHQdfiO1C7VsJlw7 IVGopHihJN6heUKfZHmn Nd2rtArsoBeoGE8nEXPe gpcoBBHhqS7mQEXrbJFo xYndEP6oAWZcjtoe j400OrDmYXJ9FALzmRHk B0SldK3iUfLkSQGnVXHs B2NzpWMbVJmiB406DPpb UaP8SHNgrmIsD5Sg QCMyxDteFoQ4e4M6Vk0X PEaeAA84WP26eLQja8F4 bHW1K2OeUAUqqmhgvqau bRV2IANlPCMmpC44 xZWeWYffMp4xp4B5w173 ZXJlIVKfqL38Re4heIxy COUmpQSFaZ5xhvmqt0de cjogIzAwMDAwMDt0 DGs2BHIklAdgXlUzECR1 DiT0LXD1lZCnmC7poVyr jtdglZ3uUfg+P2S6fXV8 aWVudDwvdGQ+PC90 uo99D6EbZissRed2SKXy DPS5dZT1qR8bVDXeJZao e5I8iXQ6O3WrttQims8p f7mkLJDzMAuwY03t kCIzn2Z2CPDoaVE5DRDi wUwvXgAedO36Vem+PGNv eMbqr3EuPghaq9usa7oz xAq9TqMfKTDmocEz iEmvSHD7e6AbGk19N14p IHdpZHRoPSIzMCUiIHZh nWitup0rkF6vEu7+PGNv oCL7bWH8vS6oHmYs TqM8MTdbD647FfFjeTRu Opmcv4arm5sqnSu9IaMp PDPfumPfiJpwGZD7y3Ff Lo07F2RjvSfgs8Cp Qen1xs98gDZuh7V6eXL7 A1MaBJTstycwnZJgcZtv YH0eRZYofwgjZNGevL8s DYQfA4z0TfRcZeL4 CQgyJ5FlnjL3IXPokRFg AOBpmQCNpE9umptna6lm ritoGlFzDTAoWTh7VAl6 LWFsaWduOiBsZWZ0 XnE1DRW4bYOklI9yzOwd ctfvhP7eKmd+UZp7s0xr qGXzQX4vnJO1EE07KO82 xDFlb8E8yIJ3D4Dq ETXpeqosimtatNT4TWGi CFVlcK15Fo2lxUjuUs9r ZDWxSQI5CWPstYCiM0Nq hM8iJoJhBTAzTZFp M2HwtQUuUUdwB623WOla NkH7VGUahgCfJ9CoJBGu mRmvAsF6d3W9Cu4BHJ34 OK83AI92mMFpm2Z0 gIJ8Z6QwBKIrbtnkolak nFV5EIDiHASpdY73Ka2e gGqcNy7mPODfSVF5RBKf vYCtI0WluO4uCzBs ULFhOTSmH6QkyEEjDDpc B383KFjuAaT7FCUcfvDs S6YpPFRhyDdwChA5u6B8 Nr5LEb87HY88QU63 zTOte3P0wVP9O3TbRSJx hlwvaurgbCG3PAIcULPq lV76Ee0bpWhpGr8gVTOj YMA5QYJkxARlM6Pe tG4wCqLaTQKxGJXrK5Hj aLOgWVbmT823EPrpUfK0 AYDyxhOuG1XdKDQvmBbm EjD2u3T7Ch2ZMVka vby1I2NyDlffzCO+PC90 DZPyGT58cTSouZNiu9ao [id number] zASmy5P2 (more content not included)... Normal [facility] Consent for Procedure/Surger yon 09-29-2022 Consent for Procedure/Surgery [id number]# 1.00CD:127 [facility] Consent for Treatmenton 09-19 Consent for Treatment [id number] #1.00CD:127 [facility] IntraOperative Documentson 0 09-29-2022 IntraOperative Documents [id number]# 1.00CD:127 [facility] Main OR Intraoperative Recor don 09-29-2022 Main OR Intraoperative Record IntraOp Document Type FTURO Summary Primary Physician: Lionel CARRINGTON MD Finalized Date/Time: 09/29/22 10:53:58 Pt. Name: MARY DIAZ/Sex: 1950 Male Med Rec #: [id number] Physician: Lionel CARRINGTON MD Financial #: [id number] Pt. Type: O Room/Bed: / Admit/Disch: 09/29/22 10:00:50 - Institution: Case Times FTURO Entry 1 Patient Times In Room 09/29/22 10:48:00 Out Room 09/29/22 11:00:00 Procedure Times Start 09/29/22 10:50:00 Stop 09/29/22 10:55:00 Anesthesia Times Last Modified By: Edgard ZELAYA, Cheryl GALLARDO 09/29/22 10:53:40 Case Attendance FTURO Entry 1 Entry 2 Entry 3 Case Attendee Lionel CARRINGTON MD, RN, EDITHOR, Safia GROSS, Nanci Luna Role Performed Surgeon - Primary Jewelry Technician - Primary Scrub - Primary Time In [...] Lionel CARRINGTON MD, Verified (If Participants Edgard ZELYAA, EDITHOR, Applicable) CherylSafia lima CST, Kimberly A Time Out Complete 09/29/22 [...] PAULINA Rene RN, Ruthann 09/29/22 10:53 Normal [facility] Main OR Preoperative Recordo n 09-29-2022 Main OR Preoperative Record Holding Area Document Type FTURO Summary Primary Physician: Lionel CARRINGTON MD Finalized Date/Time: 09/29/22 10:52:30 Pt. Name: MARY DIAZ/Sex: 1950 Male Med Rec #: [id number] Physician: Lionel CARRINGTON MD Financial #: [id number] Pt. Type: O Room/Bed: / Admit/Disch: 09/29/22 [...] No Pain Comment: na Skin Integrity Intact, Maloy, Warm, & Dry Vitals - EU Blood Pressure 148/82 Pulse 53 bpm Respirations 16 br/min SPO2 96 % RN Reviewed Yes Last Modified By: PAULINA Rene RN, Ruthann 09/29/22 10:52:28 General Comments: temp:36.5 Finalized By: PAULINA Rene RN, Ruthann Document Signatures Signed By: Iram Thomas LPN 09/29/22 10:28 PAULINA Rene RN, Ruthann 09/29/22 10:52 Normal [facility] Operative Reporton Operative Report Patient: MARY [...] with antibiotic coverage, Follow up arranged. Normal [facility] Comment on above: Result Comment: Elec tronically Signed By: DEVONTE NOBLE, Lionel Ernandez\Date and Time Signed: 09/29/22 10:57 EDT Urine Cytology ([facility])on 0 09-28-2022 Urine Cytology Diagnosis Info Invalid Interpretation Code [facility] Comment on above: Result Comment: A:Ur ine,Urine:Voided Interpretation - MicroScopic Description - Adequacy - Gross Description Site ID:A color Yellow fixative Alcohol Specimen designated Urine received in alcohol preservative and labeled with the patient?s name, consists of 40ml clear yellow fluid. Electronically signed by : on: 09/28/2022 09:14:07 Performed By: #### 1 [id number] ####[facility] [address] [place] [address] US SINGLE QUAD RT UPPERon US SINGLE [...] by: SOCORRO HUFFMAN Date: 2022-09-24 09:46 Normal [facility] AMYLASEon 09-21-2022 Amylase [Catalytic activity/Vol] 78 U/L Normal 25-115 [facility] Comment on above: Performed By: #### C VDTBH #### [facility] [address] [place] [address] Dr. Johnna Dixon CBC AUTO DIFFon 09-21-2022 BASO # 0.0 103/ul Normal 0.0-0.1 [facility] Comment on above: Performed By: #### C VDTBH #### [facility] [address] [place] [address] Dr. Johnna Dixon Basophils/100 WBC (Bld) 0.5 % Normal 0.2-2.0 [facility] Comment on above: Performed By: #### C VDTBH #### [facility] [address] [place] [address] Dr. Johnna Dixon EO # 0.1 103/ul Normal 0.0-0.7 [facility] Comment on above: Performed By: #### C VDTBH #### [facility] [address] [place] [address] Dr. Johnna Dixon Eosinophils/100 WBC (Bld) 1.9 % Normal 0.9-7.0 [facility] Comment on above: Performed By: #### C VDTBH #### [facility] [address] [place] [address] Dr. Johnna Dixon Erythrocyte distribution width (RBC) [Ratio] 14.5 % Normal 11.0-15.0 [facility] Comment on above: Performed By: #### C VDTBH #### [facility] [address] [place] [address] Dr. Johnna Dixon Hematocrit (Bld) [Volume fraction] 39.1 % Critically low 42.0-54.0 [facility] Comment on above: Performed By: #### C VDTBH #### [facility] [address] [place] [address] Dr. Johnna Dixon Hemoglobin (Bld) [Mass/Vol] 12.8 g/dL Critically low 14.0-18.0 [facility] Comment on above: Performed By: #### C VDTBH #### [facility] [address] [place] [address] Dr. Johnna Dixon IG # 0.05 10e3/ul Critically high 0.00-0.03 [facility] Comment on above: Performed By: #### C VDTBH #### [facility] [address] [place] [address] Dr. Johnna Dixon IG % 0.7 % Critically high 0.0-0.5 [facility] Comment on above: Performed By: #### C VDTBH #### [facility] [address] [place] [address] Dr. Johnna Dixon LYMPH # 2.0 103/ul Normal 1.2-3.8 [facility] Comment on above: Performed By: #### C VDTBH #### [facility] [address] [place] [address] Dr. Johnna Dixon Lymphocytes/100 WBC (Bld) 27.4 % Normal 20.5-60.0 [facility] Comment on above: Performed By: #### C VDTBH #### [facility] [address] [place] [address] Dr. Johnna Dixon MANUAL DIFF REQ NO Normal [facility] Comment on above: Performed By: #### C VDTBH #### [facility] [address] [place] [address] Dr. Johnna Dixon MCH (RBC) [Entitic mass] 31.3 pg Normal 25.9-34.0 [facility] Comment on above: Performed By: #### C VDTBH #### [facility] [address] [place] [address] Dr. Johnna Dixon MCHC (RBC) [Mass/Vol] 32.7 g/dL Normal 29.9-35.2 [facility] Comment on above: Performed By: #### C VDTBH #### [facility] [address] [place] [address] Dr. Johnna Dixon MCV (RBC) [Entitic vol] 95.6 fL Critically high 80.0-94.0 [facility] Comment on above: Performed By: #### C VDTBH #### [facility] [address] [address] [address] Johnna Dixon MONO # 0.5 103/ul Normal 0.3-0.8 [facility] Comment on above: Performed By: #### C VDTBH #### [facility] [address] [place] [address] Dr. Johnna Dixon Monocytes/100 WBC (Bld) 6.9 % Normal 1.7-12.0 [facility] Comment on above: Performed By: #### C VDTBH #### [facility] [address] [place] [address] Dr. Johnna Dixon NEUT # 4.7 103/ul Normal 1.4-6.5 [facility] Comment on above: Performed By: #### C VDTBH #### [facility] [address] [place] [address] Dr. Jhonna Dixon Neutrophils/100 WBC (Bld) 62.6 % Normal 43.0-75.0 [facility] Comment on above: Performed By: #### C VDTBH #### [facility] [address] [place] [address] Dr. Johnna Dixon Platelet mean volume (Bld) [Entitic vol] 9.3 fL Critically low 9.5-13.5 [facility] Comment on above: Performed By: #### C VDTBH #### [facility] [address] [place] [address] Dr. Johnna Dixon PLT 235 103/ul Normal 150-450 [facility] Comment on above: Performed By: #### C VDTBH #### [facility] [address] [place] [address] Dr. Johnna Dixon RBC 4.09 106/ul Critically low 4.70-6.10 [facility] Comment on above: Performed By: #### C VDTBH #### [facility] [address] [place] [address] Dr. Johnna Dixon WBC 7.4 103/ul Normal 4.0-11.0 [facility] Comment on above: Performed By: #### C VDTBH #### [facility] [address] [place] [address] Dr. Johnna Dixon LIPASEon 09-21-2022 Lipase [Catalytic activity/Vol] 114.0 U/L Normal 73.0-393.0 [facility] Comment on above: Performed By: #### C VDAGS #### [facility] [address] [place] [address] Dr. Johnna Dixon LIVER PROFILEon 09-21-2022 Albumin [Mass/Vol] 3.9 g/dL Normal 3.4-5.0 [facility] Comment on above: Performed By: #### C VDTBH #### [facility] [address] [place] [address] Dr. Johnna Dixon Albumin/Globulin [Mass ratio] 1.6 {ratio} Normal [facility] Comment on above: Performed By: #### C VDTBH #### [facility] [address] [place] [address] Dr. Johnna Dixon ALP [Catalytic activity/Vol] 59 U/L Normal 46-116 [facility] Comment on above: Performed By: #### C VDTBH #### [facility] [address] [place] [address] Dr. Johnna Dixon ALT [Catalytic activity/Vol] 23 U/L Normal 16-63 [facility] Comment on above: Performed By: #### C VDTBH #### [facility] [address] [place] [address] Dr. Johnna Dixon AST [Catalytic activity/Vol] 8 U/L Critically low 15-37 [facility] Comment on above: Performed By: #### C VDTBH #### [facility] [address] [place] [address] Dr. Johnna Dixon BILI, CONJUGATED 0.1 mg/dL Normal 0.0-0.2 [facility] Comment on above: Performed By: #### C VDTBH #### [facility] [address] [place] [address] Dr. Johnna Dixon Bilirubin [Mass/Vol] 0.3 mg/dL Normal 0.2-1.0 [facility] Comment on above: Performed By: #### C VDTBH #### [facility] [address] [place] [address] Dr. Johnna Dixon Globulin (S) [Mass/Vol] 2.5 g/dL Normal [facility] Comment on above: Performed By: #### C VDTBH #### [facility] [address] [place] [address] Dr. Johnna Dixon Protein [Mass/Vol] 6.4 g/dL Normal 6.4-8.2 [facility] Comment on above: Performed By: #### C VDTBH #### [facility] [address] [place] [address] Dr. Johnna Dixon PROF CHEM 8 (BAS METB)on Anion gap [Moles/Vol] 13.4 mmol/L Normal [facility] Comment on above: Performed By: #### C VDTBH #### [facility] [address] [place] [address] Dr. Johnna Dixon Calcium [Mass/Vol] 8.9 mg/dL Normal 8.5-10.1 [facility] Comment on above: Performed By: #### C VDTBH #### [facility] [address] [place] [address] Dr. Johnna Dixon Chloride [Moles/Vol] 106 mmol/L Normal 98-107 [facility] Comment on above: Performed By: #### C VDTBH #### [facility] [address] [place] [address] Dr. Johnna Dixon CO2 [Moles/Vol] 25.6 mmol/L Normal 21.0-32.0 [facility] Comment on above: Performed By: #### C VDTBH #### [facility] [address] [place] [address] Dr. Johnna Dixon Creatinine [Mass/Vol] 1.21 mg/dL Normal 0.70-1.30 [facility] Comment on above: Performed By: #### C VDTBH #### [facility] [address] [place] [address] Dr. Johnna Dixon EGFR-AF TOGOLESE >60 Normal >=60 [facility] Comment on above: Performed By: #### C VDTBH #### [facility] [address] [place] [address] Dr. Johnna Dixon EGFR-NON AF TOGOLESE 59 mL/min/1.73m2 Critically low >=60 [facility] Comment on above: Performed By: #### C VDTBH #### [facility] [address] [place] [address] Dr. Johnna Dixon Glucose [Mass/Vol] 115 mg/dL Critically high 74-106 T [facility] Comment on above: Performed By: #### C VDTBH #### [facility] [address] [place] [address] Dr. Johnna Dixon Potassium [Moles/Vol] 4.0 mmol/L Normal 3.5-5.1 [facility] Comment on above: Performed By: #### C VDTBH #### [facility] [address] [place] [address] Dr. Johnna Dixon Sodium [Moles/Vol] 141 mmol/L Normal 136-145 [facility] Comment on above: Performed By: #### C VDTBH #### [facility] [address] [place] [address] Dr. Johnna Dixon Urea nitrogen [Mass/Vol] 19.0 mg/dL Critically high 7.0-18.0 [facility] Comment on above: Performed By: #### C VDTBH #### [facility] [address] [place] [address] Dr. Johnna Dixon Urea nitrogen/Creatinine [Mass ratio] 15.7 mg/mg Normal [facility] Comment on above: Performed By: #### C VDTBH #### [facility] [address] [place] [address] Dr. Johnna Dixon Patient Educationon 09-22-19 23 [...] if anything looks unusual. Men with a pdcgxd-hcst-beuopl risk for skin cancer may want to see a docketing specialist (management instructor) for an annual body check. Where to find more information ? [employer] [place]: https://www.cancer.g ov/about-cancer/scre ening ? Centers for Disease Control and Prevention: https://www.cdc.gov/ cancer/dcpc/preventi on/screening.htm ? [employer]: https://www.cancer.o rg/latest-news/4-can hig-lljbyszhi-tddkc- for-men.html Contact a health care (more content not included)... Normal [facility] Urine Cytology ([facility])on 0 09-21-2022 UC Method of Extraction Voided Normal [facility] Comment on above: Performed By: #### 1 [id number] ####[facility] [id number] [facility] [place] [place] [address] Number of Jars 1 Invalid Interpretation Code [facility] Comment on above: Performed By: #### 1 [id number] ####[facility] [address] [facility] [place] [address] Specimen Urine Normal [facility] Comment on above: Performed By: #### 1 [id number] ####[facility] [address] [facility] [place] [address] Type of Service Technical Only Normal Fi [facility] Comment on above: Performed By: #### 1 [id number] ####[facility] [address] [facility] [place] [address] Ambulatory Visit Summaryon 0 08-17-2022 Ambulatory Visit [...] Lionel Burgos Where: [facility] Normal [facility] CREATININEon 08-04-2022 Creatinine [Mass/Vol] 1.31 mg/dL Critically high 0.70-1.30 [facility] Comment on above: Performed By: #### C JANIS #### [facility] [address] [address] [address] Johnna Dixon EGFR-AF TOGOLESE >60 Normal >=60 [facility] Comment on above: Performed By: #### C JANIS #### [facility] [address] [address] [address] Johnna Dixon EGFR-NON AF TOGOLESE 54 mL/min/1.73m2 Critically low >=60 [facility] Comment on above: Performed By: #### C JANIS #### [facility] [address] [place] [address] Dr. Johnna Dixon CTA NECK WO W [...] by: ALLI CORTES Date: 2022-08-04 14:04 Normal [facility] US CAROTID ART BILon 023 US [...] by: ALLI CORTES Date: 2022-07-28 12:00 Normal [facility] Ambulatory Visit Summaryon 0 07-20-2022 Ambulatory Visit Summary EMILYMARY :1950 Visit Date:07/20/2022 Ambulatory Visit Instructions Your Diagnosis History of bladder cancer Tests Performed Urnls Dip Stick Auto w/o Microscopy POC 17455 Your Care Team Attending Physician - DEVONTE [...] EST With: Where: [facility] Normal [address] [place] [address]- \.br\ Medications\.br\ What How Much When Instructions\.br [...] Urnls Dip Stick Auto w/o Microscopy POC 81583 (07/20/2022)\.br \ POC Test Comments - UA prior to Mitomycin tx\.br\ Bilirubin Urine Dipstick - Negative\.br\ Blood Urine Dipstick - Negative\.br\ Glucose Urine Dipstick - Negative\.br\ Ketones Urine Dipstick - Negative\.br\ Leukocytes Urine Dipstick - Negative\.br\ Nitrite Urine Dipstick - Negative\.br\ Protein Urine Dipstick - Negative\.br\ Specific [place] Urine Dipstick - 1.020\.br\ Urine Appearance Urine [...] for.\.br\ Acid reflux\.br\ Cancer of prostate\.br\ \.br\ [facility] Consent for Procedure/Surger yon 07-15-2022 Consent for Procedure/Surgery [id number] #1.00CD:127 Normal [facility] Consent for Procedure/Surgery [id number] #1.00CD:127 Normal [facility] UroVysion FISH ([employer])on 0 07-15-2022 UroVysion FISH Diagnosis Info Invalid Interpretation Code [facility] Comment on above: Result Comment: A:Ur [...] on: 07/15/2022 15:42:11 Performed By: #### 1 [id number] #### [facility] [address] [place] [address] Coding Summary.on 07-08-2022 Coding Summary. CD:[id number]:[id number] Gh0bWw+PGhlYWQ+PE1FV NKdV39mbDBtvF8WK8uJB D7PLKQCPZQRYQ3FPT7se IE4UXmeF0AhmlMl QqgsyGQnER15KWm5EVU5 pMudXTbovP6kaXJbJ3l2 IjWzFG69nH25JDgwMPId QqO1MxQnrvmvyVMv D2ylDsJebTOlAdx+PHRh YmxlIHdpZHRoPScxMDAl IyKgjXcoGB7wCh2uLGHn LWNvbGxhcHNlOiBj u6jdRNJoAVakZY7ywZhx L9HspKB4IJOjn0q8Cd42 dHI+EVSnEDT8tRjyWEbj b138QzCyd1ztXBI3 vLMjNVawHXX5U44xn9A0 FMRmUJMqAWW7lKW8iY5o jUybvpmrJ4RpiMJrVsS1 MVJ3fZQdfP2rvMsi atlkdH3jTgs+L10OPY4G NUMTEW1LPyr5B7MiGdds dHI+TF82PASjQO52wTHr pZRlu2uirJl2ZqLz OIGhDLC9lPdgLUeoi3Qc BAYyT80laMPvz7I2ECIg eZfpiWDbUeWgsBR3wX7k UCwreoloz6utzufv Zelwl1ahcw70rR47P80i WVzcMIJsZTR4PBBgAWMb nPxkoy4tgY0bNg8+IDxj o0dzy0eslXb1BdRt HFRmllKssDpeODF9t6Mi Eo96G3VmgFkbj7PvObx6 gm34sSRgr1Z1gEJ4FYbr PGHygN7mMGzuLtQ4 WVKnGcVokQ37bTAiKRug Xl2maEploNbrER8wFONp vlyqBVQqfK6hJSBlpKPg sLwdDP3pERWggoiw m217HmAePPE4VDBflIDm U3SmzB9uIfIfFUWnQXPn S4QckKJeTIzyP357JMtv YsR0MFExqqFtH8Ja ZEQutFvvGmV2i8B6Zk7P p4NlmaewVCT8BZaaDTEo JzN5AuYzQiZ0J1IhJrb1 ICBkfAaoWE2cG7Pv EDFqytgkvdqbaOE3AVAm NDJhmR76lOLpDUhuOl1l n3U2u387IIPzKVJhfT49 Xq0agDfbLLGjeYAI qN1xsmwzr9xjbymfBfVv UMTiCCd1XHv0WDZajRrj CkHzHYW3FgL7MMG6iVIp nS8opWhlcueaxE8u Oyc+X63naP5cZMP4VTU7 rdnlVPGtfiOfHL88RD21 H7IzDsmnoEJypDF+PGRp okUolNhzFS6wStCj i2ode6UwFLmfK8QcSZZa LIzfCck5KYAgUMB4dUJ1 kQ7kQSSeWUrai2G6qQW9 A1SrueAckk3oj3zh YOCxKMrbY94vaXZxv2R3 HPSjcDI5FPKscPgqUyQt qW84Qbp+NKVazMafi9Ee Fzous2agl1lyoKd5 IjMwJSIgdmFsaWduPSJ0 g7AeCp23D46bTZtjKMTl PIRbFDNcIILenJvehl7w iS7iUn8+PGNvbCB3 fYI5sA7wYMXtOiZ9BDhr G611JsGvhKLaJehkz4rs e4tkrTn8XxPnEWNfpvAp kTyaTWL5c1WtBb14 G23bXOedAOGuMXSkAZLb YKHbzBsaev1alA9wOb4+ NJ6os2robk20pD29oYI+ XCBwNTV3qJwhIZbh PHZiuM0rZUyvEuT6NYIx KrOcfP30bDLmOWqkOa0m pYzzeQvrNF2jLHZtvqae j900HdNok3stNUEh gWOtIOvlOYF3D20mr8K2 FAMiZKNoFHJ0pKQ3oU9q bGlnbjogbGVmdDsgdmVy zAqfOXapDVxwT709 IHRvcDsnPlBhdGllbnQg MaKoIRj1C1JbRfe8ADSd iBqrLT7wcKPsARirRq1d uHreoHjlLO3uLFNs ijuax808LbXuu0twSVYi jLMaMTlpSXP5I05ca1J4 LOTiPFXzEPM1nGW8dQ5j bGlnbjogbGVmdDsg qnJicTnqCPsuNMceC671 IHRvcDsnPkJpcnRoIERh gAQ1KC80UB09xHAqt2P2 cFB2T7KmHSXalsay zzxleFL9QFVuIYUoqB67 Uu2bbTlwBa3sCMRoVES2 CEAowSLfV5AqeI4fJbLm YXVhQGYjD5FtzGZl KIfhM392AJanMeJ2LWZf ctFoJ0HmWQWmmPzfCrW0 d8X3Rp5NK8O2KZ78FU53 dQViv0Y2rPA0Z1Fc WBSqrtxevtoeeYY3EOEi GKIvbN00Ff3xsSfhWv4a ONYtUQO5VZUznQHtB2Ki dW6qOeXfXWXuSPAx Z1RvgTHkKSziL769SWfe ZoG0SVGcnwMiB4KeTUXu lNifYaU8u4U1Jx9EKWs9 IJ34QF09tIWvd6D9 gRT3I2GgLQHzfdwtvrvo tIS4RWLlEZHqvK03Wu2e fBgbOw4sFBTiGVZ3HLSx cLRtO3IhnE1iPyQb BOLdWGPxY0VvlDYkHZzi B115ATycByA5SXKpdnWl M9RySCCbvOtgGgQ8s9M3 Qp4HOREjWA77IJI9 aZW9YW44VR52F9FwYxqi dGFibGU+PHRhYmxlIHdp ZHRoPScxMDAlJyBzdHls IP1cOj1gNDFbXDWt gKcgxUVcGhUtp8bzZPOl SNxxKR4ytUvpZ8BpsFY8 ANSmt8s3Ub96A77gL8Wv dXA+ENHsiCQ4fWT3 sO7lIrKiNuT6BGckV925 QbEnsJSbHietf3cyr2fv pBc7KeU9AKScbnLnwZya BLL5c3OhTo65U77v IHdpZHRoPSIxNSUiIHZh tEtosa1wsI7aUz8+PGNv rEY9xSX1tP7jStSjIyC8 QEaoF287IbXpvGUh Vrdlt4fpo1iwoUp6BdRv ZMPymsBlnXfhENE8a9Sy Wr62D9LqyWeyi5VzGjb4 pw09zBTga1D9bXD2 E6VnPAJcnjrlwOFdaHyp WM7pDUVqmvkiHEPokO7l CVOrD4z6MgAtChP3WJge Z7BbmnK6KXJnkOLy ILxlEYG1B71ws6Y3XXZh EYFtQFA9kVA6sK2lhRjn bjogbGVmdDsgdmVydGlj CXeeMDpwY181TMDe zNfqOVOwdV7zFSSjvXSl uYlcFP0eSJPecduaShnL WN1INJTOFUQPXT1UHlOY XS96MA11oHDvf0N0 rSA0Y5HdVDEgknbbdrai cYN2NHLxWBUpdU87yHNt SFvpRz5oh1I5o136ZQOs MGRuzT62De5noLkj FZHueDKCnK3iunavb9ru dpasDdTuTAJxJOi6XSf8 AGIwjIghXcAvQZN4ClM5 JLY3rHBkqQ6njJld aqdnzZ0iKqn+MDgvMTUv WTr1TSlwySD+PHRkIHN0 yNsvVFowODAbkK0rYIHu Y0w3IvOhTsF2YDvv Q5RrCVIegaktOo04lO9s ToJsTpU1FIhqP2KnlxF7 XJLgmSTzJHigIGK7V29a r2I9EZMfIOCgLGC1 gOK7sL9jjAzvqpcyoHQe dDsgdmVydGljYWwtYWxp U020LDNtmLhjRmnqQHpj FMNvTI96SP87rTWa v1I5iTO4R5XoKMUordxk zwllmFZ7UWGuGIBubJ88 tJKkZTffUp3iu2H8f656 HBWtBNJmwG83Lv7p lCtwGZOxmHKZlV1szvtm h9mofhpfOzJnQWTfYIh1 EOr4XAFycJoeIeFpEYB3 PqZ9LSE8iKWzsL2b iTuwysnirV5kGzl+TWFs ZTwvdGQ+ZUMpXVB7zDkt VEncSOPepA4zTTRrF0j5 UfHtWtP0NQezO2Gl IYJjkemcGq66pF8fNyUi EeO0UEijW2MivrO5AMOe dECkPJbmQOG5L37bh9A7 TKHgBZHoNVZ3lCX9 sH8afWniorvoiMMjnPgt duZeoFimAFduXBklU014 OAKhiYloJw71rTRxtCth gcJ9Q2FvNqgwvYX+ IC93QDSbJV95iFZxqLFv e2ogvNy8WcEcVIVuUNJ7 hPegCQmkc1CyHHOkW07z jNGjb4Y1AAZvhJia aXJpFsFevDS0cG8dWFmk vudjo2ddyoxiBkani7bp jw70rR77I62oOSerCGEn PSIzMCUiIHZhbGln iw0bpX6bBm0+PGNvbCB3 nPN9hL5yMdKvRyM2AEwe M139CyFpjSHkThapi9gk y3jeuBe4ElEeKJJv rfVojMurABI0n7VqRx04 R35iNDlfUTBlHINrEHNk VOSrpWzebv4foU3mCj7+ VU5uu0ocox19wE05 dHI+QMGoYRT5nXsxILiq FMCqvP6yWCxtTpP5GETz QmCihF99pCTtLRdaKf7z xNnjoOwhWP2rRICs mkcji676VyXdv6reHECn jWYiTIgpOBH9B56tz5K4 YDYiKGYrJYG8gXK5kS8f bGlnbjogbGVmdDsg emDuuSgqLLvrAPrwB077 MZHclPibKyThaZQwK6pt xkAOPA9hAhjumKY+PHRk CKW7fWavDJxaTWQj kL1iDZTlC3e2KaCmEcN2 NUkxT0OnonM4GLRosBSg OFXzjQUScK4weaajn3go cjogIzAwMDAwMDt0 PTb2HPJexUidClJxSFB0 IkD3EFE4nHLboC5bsMdq bwwijY8kCnd+RklOOjwv dGQ+FOPlWMU2vEyc FNyeIBOljJ7xUAIhX1s6 FlQvXyF0DDhzD4CmtoK6 WDJvuUWkKZXzdAKIhP8a yzbhz2mhwiojUnOx QEDhEFu6GJt7FUVpzAkc LhSaINU3DkN8PVZ3sOAr oC7lbDhzfvmssV9zOnu+ TVJOOjwvdGQ+PHRk FKY4pKzvLXgrBDHjrW2a EUHwJ3z5NcXdFzD2KMmd J0AahsU7PXJfcFXgPHTi qMBAnQ2kacavi8yu hhvpWtKhCQMkOWp2DWt3 WIHfrAzrOqMzHCC3LmG4 ZZX1tHSxcY5lzLlwewmn yV4vKpg+VOY7ITC3 VK35JS84J5XrMxmcpZRy bGU+PHRhYmxlIHdpZHRo XLpqJUKkTiJwsPoyGM5v Yk5nZTFaDTIvyQmb cHNl (more content not included)... Normal [facility] Consent for Procedure/Surger yon 07-08-2022 Consent for Procedure/Surgery [id number] 8#1.00CD:127 [facility] IntraOperative Documentson 0 07-08-2022 IntraOperative Documents [id number] 8#1.00CD:127 [facility] Consent for Treatmenton 06-21 Consent for Treatment [id number] #1.00CD:127 [facility] Main OR Intraoperative Recor don 07-07-2022 Main OR Intraoperative Record IntraOp Document Type FTURO Summary Primary Physician: Lionel CARRINGTON MD Finalized Date/Time: 07/07/22 13:40:45 Pt. Name: MARY DIAZ/Sex: 1950 Male Med Rec #: [id number] Physician: Lionel CARRINGTON MD Financial #: [id number] Pt. Type: O Room/Bed: / Admit/Disch: 07/07/22 [...] Zora Luna Role Performed Surgeon - Primary Jewelry Technician - Primary Scrub - Primary Time In [...] PAULINA Rene RN, Ruthann 07/07/22 13:40 Normal [facility] Main OR Preoperative Recordo n 07-07-2022 Main OR Preoperative Record Holding Area Document Type FTURO Summary Primary Physician: Lionel CARRINGTON MD Finalized Date/Time: 07/07/22 13:40:51 Pt. Name: MARY DIAZ/Sex: 1950 Male Med Rec #: [id number] Physician: Lionel CARRINGTON MD Financial #: [id number] Pt. Type: O Room/Bed: / Admit/Disch: 07/07/22 [...] No Pain Comment: na Skin Integrity Intact, [place], Warm, & Dry Vitals - EU Blood [...] PAULINA Rene RN, Ruthann 07/07/22 13:40 Normal [facility] Operative Reporton Operative Report Patient: MARY [...] then a repeat cystoscopy in September. Normal [facility] Comment on above: Result Comment: Elec tronically Signed By: DEVONTE NOBLE, Lionel Ernandez\Date and Time Signed: 07/07/22 10:51 EST [employer] [facility] ([employer])on 0 07-07-2022 UV Method of Extraction Bladder Wash Normal [facility] Comment on above: Performed By: #### 1 [id number] #### [facility] [address] [place] [address] UV Number of Jars 1 Invalid Interpretation Code [facility] Comment on above: Performed By: #### 1 [id number] #### [facility] [address] [place] [address] UV Specimen Urine Normal [facility] Comment on above: Performed By: #### 1 [id number] #### [facility] [address] [place] [address] UV Type of Service Technical Only Normal [facility] Comment on above: Performed By: #### 1 [id number] #### [facility] [address] [place], [place] [id number] Retail - Clinical Noteon Retail - Clinical Note [id number] #1.00CD:127 Normal [facility] XR KNEE RT 4V or >on [...] DEBORAH ZARAGOZA Date: 2022-06-30 17:38 Normal [facility] XR RIBS RT PA Fab 2 [...] SOCORRO SERRANO Date: 2022-05-25 14:51 Normal [facility] XR RIBS RT PA Fab 2 [...] atelectasis and small pleural effusion Normal [facility] CT CHEST WO CONon 04-18-2022 CT [...] SOCORRO BANSAL Date: 2022-04-18 16:17 Normal [facility] CULTURE URINEon 03-12-2022 CULTURE URINE Culture Observations: NO GROWTH. Normal [facility] Comment on above: Performed By: #### S PUTGS #### [facility] [address] [address] [address] Johnna Dixon COVID-19 Positive/NegativeOr dered By: Lionel Carrington on 02-13-2022 SARS-CoV-2 (COVID-19) N gene REX+probe Ql (Resp) Negative Negative [facility] Comment on above: Testing for SARS-CoV -2 by RT-PCR This test was developed and its performance characteristics determined by [employer] and validated at the [facility]. This test has not been FDA cleared [...] (PPP) [Time] 34.8 s 25.1-36.5 [facility] Basophils Auto (Bld) [#/Vol] Ordered By: Lionel Carrington on 02-06-2022 Basophils (Bld) [#/Vol] 0.0 10*3/uL 0.0-0.2 [facility] Basophils/100 WBC Auto (Bld) Ordered By: Lionel Carrington on 02-06-2022 Basophils/100 WBC (Bld) 0.8 % . [facility] Blood hemoglobin measurement (mass/volume)Ordered By: Lionel Carrington on 02-06-2022 Hemoglobin (Bld) [Mass/Vol] 13.2 g/dL 13.0-17.0 [facility] Blood leukocytes automated c ount (number/volume)Ordered By: Lionel Carrington on 02-06-2022 WBC (Bld) [#/Vol] 5.7 10*3/uL 4.5-11.0 [facility] Creatinine and Glomerular fi ltration rate.predicted panel (S/P/Bld)Ordered By: Lionel Carrington on 02-06-2022 Creatinine [Mass/Vol] 1.21 mg/dL 0.64-1.27 [facility] Eosinophils Auto (Bld) [#/Vo l]Ordered By: Lionel Carrington on 02-06-2022 Eosinophils (Bld) [#/Vol] 0.1 10*3/uL 0.0-0.45 [facility] Eosinophils/100 WBC Auto (Bl d)Ordered By: Lionel Carrington on 02-06-2022 Eosinophils/100 WBC (Bld) 1.7 % . [facility] Erythrocyte distribution wid th Auto (RBC) [Ratio]Ordered By: Lionel Carrington on 02-06-2022 Erythrocyte distribution width (RBC) [Ratio] 14.2 % 12.0-14.8 [facility] Estimated glomerular filtrat ion rate (GFR) non- AmericanOrdered By: Lionel Carrington on 02-06-2022 GFR/1.73 sq M.predicted among non-blacks MDRD (S/P/Bld) [Vol rate/Area] 59 mL/Min [facility] Hematocrit Auto (Bld) [Volum e fraction]Ordered By: Lionel Carrington on 02-06-2022 Hematocrit (Bld) [Volume fraction] 40.8 % 38.8-50.0 [facility] Laboratory - CoagulationOrde red By: Lionel Carrington on 02-06-2022 PT Coag (PPP) [Time] 11.0 s 9.0-12.9 [facility] Laboratory - Hematology and Cell countsOrdered By: Lionel Carrington on 02-06-2022 Nucleated RBC/100 WBC (Bld) [Ratio] 0.1 % 0-0.5 [facility] Lymphocytes Auto (Bld) [#/Vo l]Ordered By: Lionel Carrington on 02-06-2022 Lymphocytes (Bld) [#/Vol] 1.6 10*3/uL 1.00-4.8 [facility] Lymphocytes/100 WBC Auto (Bl d)Ordered By: Lionel Carrington on 02-06-2022 Lymphocytes/100 WBC (Bld) 27.4 % . [facility] MCH Auto (RBC) [Entitic mass ]Ordered By: Lionel Carrington on 02-06-2022 MCH (RBC) [Entitic mass] 29.7 pg 27.5-35.2 [facility] MCHC Auto (RBC) [Mass/Vol]Or dered By: Lionel Carrington on 02-06-2022 MCHC (RBC) [Mass/Vol] 32.4 g/dL 32.5-35.6 [facility] MCV Auto (RBC) [Entitic vol] Ordered By: Lionel Carrington on 02-06-2022 MCV (RBC) [Entitic vol] 91.6 fL 83.5-101 [facility] Monocytes Auto (Bld) [#/Vol] Ordered By: Lionel Carrington on 02-06-2022 Monocytes (Bld) [#/Vol] 0.5 10*3/uL 0.0-0.8 [facility] Monocytes/100 WBC Auto (Bld) Ordered By: Lionel Carrington on 02-06-2022 Monocytes/100 WBC (Bld) 8.7 % . [facility] Neutrophils Auto (Bld) [#/Vo l]Ordered By: Lionel Carrington on 02-06-2022 Neutrophils (Bld) [#/Vol] 3.5 10*3/uL 1.8-7.7 [facility] Neutrophils/100 WBC Auto (Bl d)Ordered By: Lionel Carrington on 02-06-2022 Neutrophils/100 WBC (Bld) 61.4 % . [facility] No Panel InformationOrdered By: Lionel Carrington on 02-06-2022 Estimated GFR () > 60 mL/Min [facility] Comment on above: GFR estimated refere nce range: According to KDOQI guidelines, <60 ml/min/1.73m2 is sufficient to diagnose a patient with chronic kidney disease. Pharmacy Creatinine Clearance (Chem N/A [facility] Platelet mean volume Auto (B ld) [Entitic vol]Ordered By: Lionel Carrington on 02-06-2022 Platelet mean volume (Bld) [Entitic vol] 8.4 fL 6.6-10.1 [facility] Platelet poor plasma interna tional normalized ratio (INR) by coagulation assay (relatOrdered By: Lionel Carrington on 02-06-2022 INR Coag (PPP) [Relative time] 1.0 {INR} [facility] Comment on above: INR Therapeutic Rang e [...] (Bld) [#/Vol] 248 10*3/uL 150-450 [facility] RBC Auto (Bld) [#/Vol]Ordere d By: Lionel Carrington on 02-06-2022 RBC (Bld) [#/Vol] 4.45 10*6/uL 3.90-5.60 [facility] Serum or plasma calcium eliezer urement (mass/volume)Ordered By: Lionel Carrington on 02-06-2022 Calcium [Mass/Vol] 9.7 mg/dL 8.2-10.2 [facility] Serum or plasma chloride sammy surement (moles/volume)Ordered By: Lionel Carrington on 02-06-2022 Chloride [Moles/Vol] 99 mmol/L 95-114 [facility] Serum or plasma glucose eliezer urement (mass/volume)Ordered By: Lionel Carrington on 02-06-2022 Glucose [Mass/Vol] 99 mg/dL 70-100 [facility] Comment on above: ADA recommended refe rence range Random Glucose Reference Range is dependent on time and content of last meal. Glucose of more than 200 mg/dL in a nonstressed, ambulatory subject supports the diagnosis of Diabetes Mellitus. Serum or plasma potassium me asurement (moles/volume)Ordered By: Lionel Carrington on 02-06-2022 Potassium [Moles/Vol] 4.4 mmol/L 3.5-5.1 [facility] Serum or plasma sodium measu rement (moles/volume)Ordered By: Lionel Carrington on 02-06-2022 Sodium [Moles/Vol] 135 mmol/L 136-146 [facility] Serum or plasma total carbon dioxide measurement (moles/volume)Ordered By: Lionel Carrington on 02-06-2022 CO2 [Moles/Vol] 26.2 mmol/L 22.0-30.0 [facility] Serum or plasma urea nitroge n measurement (mass/volume)Ordered By: Lionel Carrington on 02-06-2022 Urea nitrogen [Mass/Vol] 20 mg/dL 9-23 [facility] COVID-19 Positive/NegativeOr dered By: Lionel Carrington on 10-27-2021 SARS-CoV-2 (COVID-19) N gene REX+probe Ql (Resp) Negative Negative [facility] Comment on above: Testing for SARS-CoV -2 by RT-PCR This test was developed and its performance characteristics determined by [employer] ([employer] and validated at the [facility]. This test has not been FDA cleared [...] (PPP) [Time] 36.2 s 25.1-36.5 [facility] Basophils Auto (Bld) [#/Vol] Ordered By: Lionel Carrington on 10-17-2021 Basophils (Bld) [#/Vol] 0.0 10*3/uL 0.0-0.2 [facility] Basophils/100 WBC Auto (Bld) Ordered By: Lionel Carrington on 10-17-2021 Basophils/100 WBC (Bld) 0.6 % [facility] Blood hemoglobin measurement (mass/volume)Ordered By: Lionel Carrington on 10-17-2021 Hemoglobin (Bld) [Mass/Vol] 13.6 g/dL 13.0-17.0 [facility] Blood leukocytes automated c ount (number/volume)Ordered By: Lionel Carrington on 10-17-2021 WBC (Bld) [#/Vol] 5.9 10*3/uL 4.5-11.0 [facility] Creatinine and Glomerular fi ltration rate.predicted panel (S/P/Bld)Ordered By: Lionel Carrington on 10-17-2021 Creatinine [Mass/Vol] 0.96 mg/dL 0.64-1.27 [facility] Eosinophils Auto (Bld) [#/Vo l]Ordered By: Lionel Carrington on 10-17-2021 Eosinophils (Bld) [#/Vol] 0.1 10*3/uL 0.0-0.45 [facility] Eosinophils/100 WBC Auto (Bl d)Ordered By: Lionel Carrington on 10-17-2021 Eosinophils/100 WBC (Bld) 2.0 % [facility] Erythrocyte distribution wid th Auto (RBC) [Ratio]Ordered By: Lionel Carrington on 10-17-2021 Erythrocyte distribution width (RBC) [Ratio] 14.5 % 12.0-14.8 [facility] Estimated glomerular filtrat ion rate (GFR) non- AmericanOrdered By: Lionel Carrington on 10-17-2021 GFR/1.73 sq M.predicted among non-blacks MDRD (S/P/Bld) [Vol rate/Area] > 60 mL/Min [facility] Hematocrit Auto (Bld) [Volum e fraction]Ordered By: Lionel Carrington on 10-17-2021 Hematocrit (Bld) [Volume fraction] 41.5 % 38.8-50.0 [facility] Laboratory - CoagulationOrde red By: Lionel Carrington on 10-17-2021 PT Coag (PPP) [Time] 11.0 s 9.0-12.9 [facility] Laboratory - Hematology and Cell countsOrdered By: Lionel Carrington on 10-17-2021 Nucleated RBC/100 WBC (Bld) [Ratio] 0.0 % 0-0.5 [facility] Lymphocytes Auto (Bld) [#/Vo l]Ordered By: Lionel Carrington on 10-17-2021 Lymphocytes (Bld) [#/Vol] 1.6 10*3/uL 1.00-4.8 [facility] Lymphocytes/100 WBC Auto (Bl d)Ordered By: Lionel Carrington on 10-17-2021 Lymphocytes/100 WBC (Bld) 26.8 % [facility] MCH Auto (RBC) [Entitic mass ]Ordered By: Lionel Carrington on 10-17-2021 MCH (RBC) [Entitic mass] 29.3 pg 27.5-35.2 [facility] MCHC Auto (RBC) [Mass/Vol]Or dered By: Lionel Carrington on 10-17-2021 MCHC (RBC) [Mass/Vol] 32.7 g/dL 32.5-35.6 [facility] MCV Auto (RBC) [Entitic vol] Ordered By: Lionel Carrington on 10-17-2021 MCV (RBC) [Entitic vol] 89.8 fL 83.5-101 [facility] Monocytes Auto (Bld) [#/Vol] Ordered By: Lionel Carrington on 10-17-2021 Monocytes (Bld) [#/Vol] 0.6 10*3/uL 0.0-0.8 [facility] Monocytes/100 WBC Auto (Bld) Ordered By: Lionel Carrington on 10-17-2021 Monocytes/100 WBC (Bld) 10.6 % [facility] Neutrophils Auto (Bld) [#/Vo l]Ordered By: Lionel Carrington on 10-17-2021 Neutrophils (Bld) [#/Vol] 3.5 10*3/uL 1.8-7.7 [facility] Neutrophils/100 WBC Auto (Bl d)Ordered By: Lionel Carrington on 10-17-2021 Neutrophils/100 WBC (Bld) 60.0 % [facility] No Panel InformationOrdered By: Lionel Carrington on 10-17-2021 Estimated GFR () > 60 mL/Min [facility] Comment on above: GFR estimated refere nce range: According to KDOQI guidelines, <60 ml/min/1.73m2 is sufficient to diagnose a patient with chronic kidney disease. Pharmacy Creatinine Clearance (Chem N/A [facility] Platelet mean volume Auto (B ld) [Entitic vol]Ordered By: Lionel Carrington on 10-17-2021 Platelet mean volume (Bld) [Entitic vol] 8.3 fL 6.6-10.1 [facility] Platelet poor plasma interna tional normalized ratio (INR) by coagulation assay (relatOrdered By: Lioenl Carrington on 10-17-2021 INR Coag (PPP) [Relative time] 1.0 {INR} [facility] Comment on above: INR Therapeutic Rang e [...] (Bld) [#/Vol] 249 10*3/uL 150-450 [facility] RBC Auto (Bld) [#/Vol]Ordere d By: Lionel Carrington on 10-17-2021 RBC (Bld) [#/Vol] 4.62 10*6/uL 3.90-5.60 [facility] Serum or plasma calcium eliezer urement (mass/volume)Ordered By: Lionel Carrington on 10-17-2021 Calcium [Mass/Vol] 9.7 mg/dL 8.2-10.2 [facility] Serum or plasma chloride sammy surement (moles/volume)Ordered By: Lionel Carrington on 10-17-2021 Chloride [Moles/Vol] 101 mmol/L 95-114 [facility] Serum or plasma glucose eliezer urement (mass/volume)Ordered By: Lionel Carrington on 10-17-2021 Glucose [Mass/Vol] 87 mg/dL 70-100 [facility] Comment on above: ADA recommended refe rence range Random Glucose Reference Range is dependent on time and content of last meal. Glucose of more than 200 mg/dL in a nonstressed, ambulatory subject supports the diagnosis of Diabetes Mellitus. Serum or plasma potassium me asurement (moles/volume)Ordered By: Lionel Carrington on 10-17-2021 Potassium [Moles/Vol] 4.4 mmol/L 3.5-5.1 [facility] Serum or plasma sodium measu rement (moles/volume)Ordered By: Lionel Carrington on 10-17-2021 Sodium [Moles/Vol] 136 mmol/L 136-146 [facility] Serum or plasma total carbon dioxide measurement (moles/volume)Ordered By: Lionel Carrington on 10-17-2021 CO2 [Moles/Vol] 25.6 mmol/L 22.0-30.0 [facility] Serum or plasma urea nitroge n measurement (mass/volume)Ordered By: Lionel Carrington on 10-17-2021 Urea nitrogen [Mass/Vol] 18 mg/dL 03-13 [facility] Vital Signs Date Time Vital Sign Value Performing Clinician Facility 08-12-2023 11:10-0500 Body height 182.88 cm MD Yolande Staley Work Phone: [facility] 08-12-2023 11:10-0500 Body mass index (BMI) [Ratio] 24.3 kg/m2 MD Yolande Staley Work Phone: [facility] 08-12-2023 11:10-0500 Body weight 81.19 kg MD Yolande Staley Work Phone: [facility] 02-10-2023 14:16-0400 Blood Pressure Location Qamar ROBINSONL [facility] [place] 02-10-2023 14:16-0400 Diastolic blood pressure 80 mm[Hg] Qamar BOWERSL [facility] [place] 02-10-2023 14:16-0400 Heart rate 70 /min Qamar BOWERSL [facility] [place] 02-10-2023 14:16-0400 Respiratory rate 16 /min Qamar BOWERSL [facility] [place] 02-10-2023 14:16-0400 Systolic blood pressure 124 mm[Hg] Qamar BOWERSL [facility] [place] 12-03-2022 10:20-0400 Body height 182.88 cm Zoran Chavez Other [employer] Other 12-03-2022 10:20-0400 Body mass index (BMI) [Ratio] 25.49 kg/m2 Zoran Chavez Other [employer] Other 12-03-2022 10:20-0400 Body weight 85.28 kg Zoran Chavez Other [employer] Other 10-22-2022 10:20-0400 Body height 182.88 cm Zoran Scott Other [employer] Other 10-22-2022 10:20-0400 Body mass index (BMI) [Ratio] 25.63 kg/m2 Zoran Scott Other [employer] Other 10-22-2022 10:20-0400 Body weight 85.73 kg Zoran Scott Other [employer] Other 10-22-2022 10:20-0400 Diastolic blood pressure 80 mm[Hg] Zoranneftaly Chavez Other [employer] Other 10-22-2022 10:20-0400 Systolic blood pressure 110 mm[Hg] Zoranneftaly Chavez Other [employer] Other 02-24-2022 10:43-0400 Blood Pressure Location [facility] 02-24-2022 10:43-0400 Diastolic blood pressure 80 mm[Hg] Lionel CARRINGTON [facility] 02-24-2022 10:43-0400 Heart rate 65 /min Lionel CARRINGTON [facility] 02-24-2022 10:43-0400 Respiratory rate 16 /min Lionel CARRINGTON [facility] 02-24-2022 10:43-0400 Systolic blood pressure 140 mm[Hg] Lionel CARRINGTON [facility] 02-17-2022 15:15-0400 Diastolic blood pressure 83 mm[Hg] MD Yolande Staley Work Phone: [facility] 02-17-2022 15:15-0400 Heart rate 58 /min MD Yolande Staley Work Phone: [facility] 02-17-2022 15:15-0400 Respiratory rate 16 /min MD Yolande Staley Work Phone: [facility] 02-17-2022 15:15-0400 SaO2% (BldA) [Mass fraction] 95 % MD Yolande Staley Work Phone: [facility] 02-17-2022 15:15-0400 Systolic blood pressure 166 mm[Hg] MD Yolande Staley Work Phone: [facility] 02-17-2022 14:30-0400 Body height 182.88 cm MD Yolande Staley Work Phone: [facility] 02-17-2022 14:30-0400 Body mass index (BMI) [Ratio] 26.2 kg/m2 MD Yolande Staley Work Phone: [facility] 02-17-2022 14:30-0400 Body weight 87.7 kg MD Yolande Staley Work Phone: [facility] 02-17-2022 14:17-0400 Body temperature 97.6 [degF] MD Yolande Staley Work Phone: [facility] 02-17-2022 13:52-0400 Inhaled oxygen flow rate 10 L/min MD Yolande Staley Work Phone: [facility] 10-17-2021 11:42-0400 Body height 180.34 cm MD Yolande Staley Work Phone: [facility] 10-17-2021 11:42-0400 Body mass index (BMI) [Ratio] 27 kg/m2 MD Yolande Staley Work Phone: [facility] 10-17-2021 11:42-0400 Body temperature 98.4 [degF] MD Yolande Staley Work Phone: [facility] 10-17-2021 11:42-0400 Body weight 88 kg MD Yolande Staley Work Phone: [facility] 10-17-2021 11:42-0400 Diastolic blood pressure 90 mm[Hg] MD Yolande Staley Work Phone: [facility] 10-17-2021 11:42-0400 Heart rate 64 /min MD Yolande Staley Work Phone: [facility] 10-17-2021 11:42-0400 SaO2% (BldA) [Mass fraction] 100 % MD Yolande Staley Work Phone: [facility] 10-17-2021 11:42-0400 Systolic blood pressure 172 mm[Hg] MD Yolande Staley Work Phone: [facility] Encounters Encounter Date Encounter Type Care Provider Facility Start: 09-09-2023 End: 09-09-2023 ambulatory VASU GALEANO Not Available Start: 08-28-2023 End: 08-28-2023 ambulatory Yolande Staley Facility:[facility] Start: 08-12-2023 End: 08-12-2023 ambulatory Yolande Staley Facility:[facility] Start: 08-12-2023 End: 08-12-2023 ambulatory MD Yolande Staley Work Phone: [facility] Work Phone: Start: 08-12-2023 End: 08-12-2023 Patient encounter procedure MD Yolande Staley Work Phone: [facility] Work Phone: Start: 08-12-2023 End: 08-12-2023 ambulatory MD Yolande Staley Work Phone: [facility] Work Phone: Start: 08-12-2023 End: 08-12-2023 Patient encounter procedure MD Yolande Staley Work Phone: [facility] Neurosurgery Work Phone: Start: 07-26-2023 End: 07-27-2023 ambulatory [facility] Start: 04-27-2023 End: 04-28-2023 ambulatory Lionel CARRINGTON Facility:[facility] Start: 04-27-2023 End: 04-27-2023 Patient encounter procedure Lionel CARRINGTON [facility] Start: 03-15-2023 End: 03-16-2023 ambulatory Dereck Osman MD Facility:[facility] Start: 03-10-2023 End: 03-11-2023 ambulatory Qamar R NILL Facility:[id number] Start: 02-10-2023 End: 02-11-2023 ambulatory Qamar R ROBINSONL Facility: [place] Start: 02-10-2023 End: 02-10-2023 Patient encounter procedure Qamar R NILL [facility] Start: 01-20-2023 End: 01-21-2023 ambulatory Lionel CARRINGTON Facility:[facility] Start: 01-14-2023 End: 01-15-2023 ambulatory Lionel CARRINGTON Facility:[id number] Start: 01-05-2023 End: 01-06-2023 ambulatory Lionel CARRINGTON Facility:[facility] Start: 01-05-2023 End: 01-05-2023 Patient encounter procedure Lionel CARRINGTON [facility] Start: 01-01-2023 End: 01-01-2023 ambulatory Yolande Staley Facility:[facility] Start: 01-01-2023 End: 01-01-2023 ambulatory MD Yolande Staley Work Phone: [facility] Work Phone: Start: 01-01-2023 End: 01-01-2023 Patient encounter procedure MD Yolande Staley Work Phone: [facility] [place] Work Phone: Start: 12-28-2022 End: 12-29-2022 ambulatory Dereck Osman MD Facility:[facility] [place] Start: 12-14-2022 End: 12-15-2022 ambulatory Dereck Osman MD Facility: [place] Start: 12-03-2022 End: 12-03-2022 ambulatory Zoran Chavez Other [employer] Other Start: 12-03-2022 Office outpatient visit 15 minutes Zoran Chavez [facility] Neurosurgery Start: 11-20-2022 End: 11-21-2022 ambulatory DERECK OSMAN Facility:[facility] Start: 10-28-2022 End: 10-29-[address] NELLY HERRERA Facility:[facility] Start: 10-27-2022 End: 11-18-[address] ZORAN CHAVEZ Facility:[facility] Start: 10-23-2022 End: 10-24-[address] ZORAN CHAVEZ Facility:[facility] Start: 10-22-2022 End: 10-22-2022 ambulatory Zoran Chavez Other [employer] Other Start: 10-22-2022 Office outpatient visit 15 minutes Zroan Chavez [facility] Neurosurgery Start: 10-05-2022 End: 10-06-[address] YOLANDE STALEY . Facility:[facility] Start: 09-29-2022 End: 09-30-2022 ambulatory Lionel CARRINGTON Facility:[facility] Start: 09-24-2022 End: 09-25-[address] YOLANDE STALEY . Facility:[facility] Start: 09-21-2022 End: 09-22-[address] LIONEL CARRINGTON . Facility:[facility] Start: 09-21-2022 End: 09-22-2022 ambulatory Lionel CARRINGTON Facility:[facility] Start: 09-21-2022 End: 09-21-2022 Patient encounter procedure Lionel CARRINGTON [facility] Start: 08-19-2022 End: 08-20-[address] LIONEL CARRINGTON . Facility: Start: 08-17-2022 End: 08-18-2022 ambulatory Lionel CARRINGTON Facility:[facility] Start: 08-17-2022 End: 08-17-2022 Patient encounter procedure Lionel CARRINGTON [facility] Start: 08-04-2022 End: 08-05-[address] YOLANDE STALEY . Facility: Start: 07-28-2022 End: 07-29-[address] YOLANDE STALEY . Facility:[facility] Start: 07-23-2022 End: 07-23-[address] LIONEL CARRINGTON . Facility: Start: 07-20-2022 End: 07-21-2022 ambulatory Lionel CARRINGTON Facility:[facility] Start: 07-20-2022 End: 07-20-2022 Patient encounter procedure Lionel CARRINGTON [facility] Start: 07-07-2022 End: 07-08-2022 ambulatory Lionel CARRINGTON Facility:[facility] Start: 07-07-2022 End: 07-07-2022 Patient encounter procedure Lionel CARRINGTON [facility] Start: 06-30-2022 End: 07-01-[address] YOLANDE STALEY . Facility:[facility] Start: 06-04-2022 End: 06-04-[address] YOLANDE STALEY . Facility:[facility] Start: 05-25-2022 End: 05-26-[address] YOLANDE STALEY . Facility:[facility] Start: 05-18-2022 End: 05-18-2022 Patient encounter procedure Lionel CARRINGTON [facility] Start: 04-27-2022 End: 04-28-[address] YOLANDE STALEY . Facility:[facility] Start: 04-18-2022 End: 04-18-[address] FELICIA GALDAMEZ . Facility:[facility] Start: 04-15-2022 End: 04-15-2022 Patient encounter procedure [facility] Start: 03-26-2022 End: 03-26-[address] LIONEL CARRINGTON . Facility:[facility] Start: 03-12-2022 End: 03-13-[address] YOLANDE STALEY . Facility:[facility] Start: 03-09-2022 End: 03-09-2022 Patient encounter procedure [facility]el [facility] Start: 02-27-2022 End: 02-27-2022 Lab Drop off Lionel CARRINGTON [facility] Start: 02-27-2022 End: 02-27-2022 Patient encounter procedure Lionel [facility]ARRINGTON [facility] Start: 02-24-2022 End: 02-24-2022 Patient encounter procedure Lionel CARRINGTON [facility] [place] Start: 02-17-2022 End: 02-17-2022 Admission to same day surgery center MD Yolande Staley [facility] [place] Start: 02-13-2022 End: 02-13-2022 Patient encounter procedure MD Yolande Staley Work Phone: [facility] Start: 02-06-2022 End: 02-06-2022 Patient encounter procedure MD Yolande Staley Work Phone: [facility] Start: 11-11-2021 End: 11-11-2021 Patient encounter procedure Lionel Burgos CARRINGTON [facility] Start: 11-05-2021 End: 11-05-2021 Patient encounter procedure Lionel CARRINGTON [facility] Start: 10-29-2021 End: 10-29-2021 Admission to same day surgery center MD Yolande Staley Work Phone: [facility] Start: 10-27-2021 End: 10-27-2021 Patient encounter procedure MD Yolande Staley Work Phone: [facility] Start: 10-17-2021 End: 10-17-2021 Patient encounter procedure MD Yolande Staley Work Phone: [facility] Procedures Date Procedure Procedure Detail [...] above: Performed By: #### P SAD #### [facility] [address] [place] [address] Dr. Johnna Dixon Start: 02-17-2022 Transurethral resect [...] CARRINGTON Comment on above: had recently at [facility] Start: 05-21-2014 Colonoscopy Qamar DELANO DOSS Start: 06-21-2010 Complete repair of r [...] Start: 10-04-2023 ambulatory Ambulatory Facility:[facility] Start: 08-12-2023 Patient referral [facility] Work Phone: Start: 08-12-2023 X-ray of cervical spine XR cer vical spine w flex/ext [facility] Start: 08-12-2023 X-ray of lumbar spin e, six views including bending views XR lumbar spine 6V w bending [facility] Start: 08-12-2023 XR Cervical spine Vi ews W flexion and W extension [facility] Start: 08-12-2023 XR Lumbar spine Views F [facility] Start: 02-17-2022 End: 02-17-2022 [facility] Work Phone: Start: 02-17-2022 Transurethral resect ion of bladder neoplasm OR Cysto/TURBT/Bladder Biopsy/Fulg (Not Applicable) [facility] Start: 02-17-2022 End: 02-17-2022 Admission to same day surgery center Departed Surgical Day Care [facility] [place] Start: 02-13-2022 End: 02-13-2022 Patient encounter procedure Departed Clinical [facility] MR Cervical spine WO and W contrast IV [facility] Patient referral [facility] Work Phone: Immunizations Immunization Date Immunization Notes Care Provider Fa cili 04-16-2022 SARS-CoV-2 (COVID-19 ) [id number] Qamar SMITH [facility] 03-27-2022 influenza virus vacc ine, unspecified formulation Qamar SMITH [facility] 05-06-2021 COVID-19 mRNA-1273 (Moderna) MD Yolande Hoy Work Phone: [facility] 09-19-2020 COVID-19 mRNA-1273 (Moderna) MD Yolande Staley Work Phone: [facility] Comment on above: Result Comment: 2022: [id number] 08-22-2020 COVID-19 mRNA-1273 (Moderna) MD Yolande Staley Work Phone: [facility] Comment on above: Result Comment: 2022: [id number] 06-21-2020 SARS-CoV-2 (COVID-19 ) mRNA-1273 vaccine Lionel CARRINGTON [facility] 05-23-2020 influenza virus vacc ine, unspecified formulation Qamar ROBINSONLa Cartoonerie [facility] 04-03-2020 influenza virus vacc ine, unspecified formulation Qamar NILL [facility] 05-29-2019 influenza virus vacc ine, unspecified formulation Qamar NILL [facility] 04-14-2019 influenza, unspecifi ed formulation Qamar ROBINSONL [facility] 09-26-2018 tetanus and diphther ia toxoids, adsorbed, preservative free, for adult use (2 Lf of tetanus toxoid and 2 Lf of diphtheria toxoid) Qamar BOWERSL [facility] 10-11-2017 pneumococcal polysaccharide vaccine, 23 valent Metro[employer] [facility] 07-22-2016 pneumococcal conjuga te vaccine, 13 valent Qamar NILL [facility] 06-29-2013 tetanus toxoid, redu mirtha diphtheria toxoid, and acellular pertussis vaccine, adsorbed Qamar LUIS [facility] 03-10-2000 Td(adult) unspecifie d formulation Qamar LUIS [facility] Payers Date Payer Category Payer Self-pay [id number] 2022 Unknown 1958 Medicare [id number] 1959 Unknown [id number] 2.16.840.1.364395.19 1951 Unknown [id number] 2.16.840.1.937193.3.579.2. 593 1951 Unknown [id number] 2.16.840.1.378373.3.579.2. 593 1951 Unknown [id number] 2.16.840.1.360196.3.579.2. 593 1951 Unknown [id number] 2.16.840.1.114284.3.579.2. 593 1951 Unknown [id number] 2.16.840.1.408199.3.579.2. 593 1951 Unknown [id number] 2.16.840.1.690482.3.579.2. 593 1951 Unknown [id number] 2.16.840.1.634711.3.579.2. 593 1951 Unknown [id number] 2.16.840.1.053243.3.579.2. 593 1951 Unknown [id number] 2.16.840.1.737534.3.579.2. 593 1951 Unknown [id number] 2.16.840.1.210685.3.579.2. 593 1951 Unknown [id number] 2.16.840.1.994106.3.579.2. 593 1951 Unknown [id number] 2.16.840.1.443115.3.579.2. 593 1951 Unknown [id number] 2.16.840.1.682849.3.579.2. 593 1951 Unknown [id number] 2.16.840.1.618567.3.579.2. 593 1951 Unknown [id number] 2.16.840.1.376536.3.579.2. 593 1951 Unknown [id number] 2.16.840.1.006039.3.579.2. 593 1951 Unknown [id number] 2.16.840.1.877977.3.579.2. 593 1951 Unknown [id number] 2.16.840.1.575275.3.579.2. 593 1951 Unknown [id number] 2.16.840.1.964621.3.579.2. 593 1951 Unknown [id number] 2.16.840.1.712196.3.579.2. 727 1951 Unknown [id number] 2.16.840.1.014083.3.579.2. 727 1951 Unknown [id number] 2.16.840.1.353850.3.579.2. 727 1951 Unknown [id number] 2.16.840.1.114900.3.579.2. 727 1951 Unknown [id number] 2.16.840.1.684187.3.579.2. 727 1951 Unknown [id number] 2.16.840.1.966841.3.579.2. 727 1951 Unknown [id number] 2.16.840.1.062267.3.579.2. 727 1951 Unknown [id number] 2.16.840.1.992810.3.579.2. 7 1951 Unknown [id number] 2.16.840.1.672253.3.579.2. 1951 Unknown [id number] 2.16.840.1.801135.3.579.2. 1951 Unknown [id number] 2.16.840.1.029703.3.579.2. 1951 Unknown [id number] 2.16.840.1.312499.3.579.2. 1951 Unknown [id number] 2.16.840.1.377585.3.579.2. 1951 Unknown [id number] 2.16.840.1.279448.3.579.2. 727 1951 Unknown [id number] 2.16.840.1.523967.3.579.2. 196 1951 Unknown [id number] 2.16.840.1.358394.3.579.2. 196 1951 Unknown [id number] 2.16.840.1.693015.3.579.2. 196 1951 Unknown [id number] 2.16.840.1.373370.3.579.2. 196 1951 Unknown [id number] 2.16.840.1.546293.3.579.2. 196 1951 Unknown [id number] 2.16.840.1.589517.3.579.2. 1259 Medicare Medicare [id number] Private Health Insurance [id number] Unknown [place] [id number] Unknown [id number] 2.16.840.1.724899.3.579.2. 531 Unknown [id number] 2.16.840.1.630604.3.579.2. 531 Unknown [id number] 2.16.840.1.170733.3.579.2. 531 Social History Date Type Detail Facility Start: 10-17-2021 End: 02-17-2022 Tobacco smoking status NHIS Ex-smoker (finding) [facility] Comment on above: pt quit smoking 10+ yrs ago Start: 1950 Sex Assigned At Male F [facility] Start: 11-05-2021 Tobacco smoking status Never s moked tobacco (finding) [facility] Tobacco smoking status Never [facility] [place] Comment on above: pt quit smoking 10+ yrs ago Sex Assigned At Male [facility] [place] Medical Equipment Procedure Code Equipment Code Equipment Original Text Equipment Identifier Dates Transurethral resection of bladder tumor (TURBT) with cystoscopy Polymeric ureteral stent ()[id number] FDA Start: 10-29-2021 Decompression, spine, cervical, posterior approach Bone-screw internal spinal fixation system, non-sterile ()[id number] FDA Start: 04-18-2020 Decompression, spine, cervical, posterior approach Bone-screw internal spinal fixation system, non-sterile ()[id number] FDA Start: 04-18-2020 Decompression, spine, cervical, posterior approach Bone-screw internal spinal fixation system, non-sterile ()[id number] FDA Start: 04-18-2020 Decompression, spine, cervical, posterior approach Bone-screw internal spinal fixation system, non-sterile ()[id number] FDA Start: 04-18-2020 Decompression, spine, cervical, posterior approach Bone-screw internal spinal fixation system, non-sterile ()[id number] FDA Start: 04-18-2020 Goals Date Patient Goal Desired Activity /State Functional Status Date Assessment Result Facility 04-27-2023 Functional Status N/A [facility] 02-10-2023 Functional Status N/A [facility] 01-05-2023 Functional Status N/A [facility] 02-24-2022 Functional Status N/A [facility] Clinical Notes 11-04-2021 to 04-27-2023 Note Date & Type Note Facility 04-27-2023 Note [id number]#1.00TIFF [facility] 04-27-2023 Hospital Discharge instructions Patient Education [...] [facility] [address] [place] [address]- Business (1) When: Unknown Comments:Office will call to schedule follow up [facility] 04-27-2023 Note Custom Cystoscopy ? [...] you have a fever over 100 degrees. [facility] 02-10-2023 Note Chief Complaint consultation for [...] Cervical vertebral fu (more content not included)... [facility] Comment on above: Result Comment: Elec tronically Signed By: LUIS NOBLE, Qamar Ernandez\Date and Time Signed: 02/10/23 15:05 EDT 01-05-2023 Note [id number]#1.00CD:127 [facility] 01-05-2023 Hospital Discharge instructions Patient Education [...] Address: [facility] [address], [place] [address]- Business (1) When: Unknown Comments:Office will call to schedule follow up [facility] 01-05-2023 Note Custom Cystoscopy ? [...] you have a fever over 100 degrees. [facility] 12-03-2022 Evaluation note Encounter Date Diagnosis [...] M46.1) Nov, Neurogenic claudication (ICD-10 - R29.818) [facility] Other 05-04-2023 Evaluation note* Encounter Date Diagnosis [...] spine October, Neurogenic claudication (ICD-10 - R29.818) [employer] Other [id number] Note [id number]#1.00CD:127[facility] 09-29-2022 NoteCustom Cystoscopy ? Voiding after [...] if you have a fever over 100 degrees.[facility] 09-21-2022 Hospital Discharge instructions Patient Education 09/21/2022 [...] if anything looks unusual. Men with a gtglak-rjhe-kpuwmo risk for skin cancer may want to see a docketing specialist (management instructor) for an annual body check. Where to find more information National Cancer [place]: https://www.cancer.gov/about-cancer/screening Centers for Disease Control and Prevention: https://www.cdc.gov/cancer/dcpc/prevention/screening.htm [place] [employer]: https://www.cancer.org/latest-news/9-hmixqm-qesoobefo-rsfsq-msz-lkw.html Contact a health care provider if: You [...] 03/04/2017 Document Revised: 02/24/2019 Document Reviewed: 03/04/2017 Mobile Backstage Patient Education 2020 [employer]. Follow Up Care 09/19/2021 11:05:08 With:DEVONTE NOBLE, Lionel Burgos, URL Address: [facility] [address] [place] [address]- When: Unknown [facility] 01-18-2023 Note [id number]:127[facility] 07-07-2022 Hospital Discharge instructions Patient Education [...] [facility] [address] [place] [address]- Business (1) When: Unknown Comments:Office will call to schedule follow up [facility]01-17-2023 NoteCustom Cystoscopy ? Voiding after [...] if you have a fever over 100 degrees.[facility] 02-24-2022 Hospital Discharge instructions Patient Education [...] if anything looks unusual. Men with a hwpymj-qmkj-kermsv risk for skin cancer may want to see a docketing specialist (management instructor) for an annual body check. Where to find more information National Cancer [place]: https://www.cancer.gov/about-cancer/screening Centers for Disease Control and Prevention: https://www.cdc.gov/cancer/dcpc/prevention/screening.htm [place] [employer]: https://www.cancer.org/latest-news/9-pkrnsj-lgjgznkdx-civxo-bah-zti.html Contact a health care provider if: You [...] 03/04/2017 Document Revised: 02/24/2019 Document Reviewed: 03/04/2017 Mobile Backstage Patient Education 2020 [employer]. Follow Up Care 02/05/2022 13:48:40 With:DEVONTE NOBLE, Lionel Burgos, URL Address: [facility] [address] [place] [address]- [phone] When: Unknown [facility] [id number] Hospital Discharge instructions Patient Education 11/11/2021 09:47:46 [...] [facility] [address] [place] [address]- Business (1) When: Unknown Comments:Keep scheduled appointment [facility]05-17-2022 Hospital Discharge instructions Patient Education [...] who: Are older than age 65. Are -Sing[place]an. Are obese. Have a family history of [...] cells. Follow these instructions at home: Take yjuz-sib-jsoqcsk and prescription medicines only as told by [...] 06/07/2006 Document Revised: 05/20/2018 Document Reviewed: 02/15/2017 Mobile Back[employer] Patient Education 2020 [employer]. Follow Up Care 10/14/2021 11:26:04 With:Lionel CARRINGTON MD, URL Address: [facility] [address] [place] [address]- When: Unknown [facility] Evaluation + Plan note Future Appointments Appointment Date:09/21/2022 09:45:00 AM Scheduled Provider:Lionel CARRINGTON MD Location:[facility] Appointment Type:URO Office Visit [facility] Evaluation + Plan note Future Appointments Appointment Date:03/09/2022 09:00:00 AM Scheduled Provider: Location:[facility] Appointment Type:URO Nurse Visit Appointment Date:04/15/2022 09:00:00 AM Scheduled Provider: Location:[facility] Appointment Type:URO Nurse Visit Appointment Date:09/21/2022 09:45:00 AM Scheduled Provider:Lionel CARRINGTON MD Location:[facility] Appointment Type:URO Office Visit [facility] Evaluation + Plan note Future Appointments Appointment Date:03/09/2022 09:00:00 AM Scheduled Provider: Location:[facility] Appointment Type:URO Nurse Visit Appointment Date:04/15/2022 09:00:00 AM Scheduled Provider: Location:[facility] Appointment Type:URO Nurse Visit Appointment Date:09/21/2022 09:45:00 AM Scheduled Provider:Lionel CARRINGTON MD Location:[facility] Appointment Type:URO Office Visit Diagnostic Tests Pending * [facility] Appointment Date:04/15/2022 09:00:00 AM Scheduled Provider: Location:[facility] Appointment Type:URO Nurse Visit Appointment Date:09/21/2022 09:45:00 AM Scheduled Provider:Lionel CARRINGTON MD Location:[facility] Appointment Type:URO Office Visit [facility] evaluation + Plan note Future Appointments Appointment Date:07/20/2022 10:00:00 AM Scheduled Provider: Location:[facility] Appointment Type:URO Nurse Visit Appointment Date:08/17/2022 10:00:00 AM Scheduled Provider: Location:[facility] Appointment Type:URO Nurse Visit Appointment Date:09/21/2022 09:45:00 AM Scheduled Provider:Lionel CARRINGTON MD Location:[facility] Appointment Type:URO Office Visit Diagnostic Tests Pending * UroVysion FISH ([facility]) [facility] Appointment Date:08/17/2022 10:00:00 AM Scheduled Provider: Location:[facility] Appointment Type:URO Nurse Visit Appointment Date:09/21/2022 09:45:00 AM Scheduled Provider:Lionel CARRINGTON MD Location:[facility] Appointment Type:URO Office Visit [facility] evaluation + Plan note Future Appointments Appointment Date:09/22/2022 02:00:00 PM Scheduled Provider[facility] Appointment Type:Urology CALL PAT FT Appointment Date:09/29/2022 11:15:00 AM Scheduled Provider: Location:[facility] Appointment Type:Urology FT [facility] evaluation + Plan note Future Appointments Appointment Date:09/22/2022 02:00:00 PM Scheduled Provider: Location:[facility] Appointment Type:Urology CALL PAT FT Appointment Date:09/29/2022 11:15:00 AM Scheduled Provider: Location:[facility] Appointment Type:Urology FT Diagnostic Tests Pending * Urine Cytology ([facility]) 09/21/22 [facility] evaluation + Plan note Future Appointments Appointment Date:10/04/2023 10:15:00 AM Scheduled Provider:Lionel CARRINGTON MD Location:[facility] Appointment Type:URO Office Visit Diagnostic Tests Pending * UroVysion Fish and Urine Cyto ([facility]) [facility] Appointment Date:10/04/2023 10:15:00 AM Scheduled Provider:Lionel CARRINGTON MD Location:[facility] Appointment Type:URO Office Visit [facility] [place] Evaluation + Plan note Future Appointments Appointment Date:10/04/2023 10:15:00 AM Scheduled Provider:Lionel CARRINGTON MD Location:[facility] Appointment Type:URO Office Visit Diagnostic Tests Pending * UroVysion Fish and Urine Cyto ([facility]) [facility] Work Phone: Evaluation note* Diagnosis Onset Date Resolution Status Spinal stenosis of cervical region with radiculopathy acute Spinal stenosis of lumbar region with radiculopathy acute [facility] Work Phone: History general Narrative - Reported* [...] KNEE SCOPE Surgical History L shoulder NAE -[facility] 2016 Hospitalization History FLU X2-3 DAYS Hospitalization History see surg. hx. [facility] Other Hospital course Narrative No data available for this section [facility] Hospital Discharge instructions No data available for this section [facility] progress note No data available for this section [facility] Chief Complaint and Reason for Visit Chief [...] (M47.812) Referral Organization [facility] Referring Provider First Name Zoran Referring Provider Last Name Scott Referring Provider Specialty Neurologica l Surgery Referred Organization [facility] Referred Address [address], [place],[address] Referred Provider Specialty Physical The rapist Referral Priority Routine Reason evaluate and tr eat for neck and back pain Diagnosis 1 Cervical spondylosis (M47.812) Diagnosis 2 Low back pain, unspe cified (M54.50) Referral Organization [facility] Referring Provider First Name Zoran Referring Provider Last Name Scott Referring Provider Specialty Neurologica l Surgery Referred Organization [facility] Referred Provider AlyssahomarRaoul sarmiento chino Referred Address [address], [place],[address] Referred Provider Specialty Pain Medicin e Referral [...] content) DATE CREATED AUTHOR 11/27/2022 [facility] DATE CREATED AUTHOR AUTHOR'S ORGANIZ ATION 06/28/2023 [facility] DATE CREATED AUTHOR AUTHOR'S ORGANIZ ATION 07/29/2023 [facility] DATE CREATED AUTHOR AUTHOR'S ORGANIZ ATION 09/03/2023 [facility] DATE CREATED AUTHOR AUTHOR'S ORGANIZ ATION 09/10/2023 [facility] FOR RECORDS PERTAINING TO PATIENTS WHO ARE [...] BE BASED ON THE PRIMARY CLINICAL RECORDS. [facility] [employer] provides no warranty or guarantee of the accuracy or completeness of information in this document.
[2023-09-21 11:36] LABS: Prostate Specific Antigen Dx <0.13 ng/mL (<=4.00)
== END 2023-09-21 10:31 | disposition home or self-care (01) ==
LOC: LAB 10:31
PROVIDERS: PCP Family Medicine; Visit Provider Urology
DX: Z85.46 Personal history of malignant neoplasm of prostate (principal)
CPT/HCPCS: 36415; 84153

== ENCOUNTER 2023-09-21 10:33 | Outpatient (OUT) | payer MEDICARE, SELFPAY ==
[2023-09-21 11:34] LABS: Free T3 4.39 pg/mL (2.18-3.98); Thyroid Stimulating Hormone 0.294 uIU/mL (0.358-3.740)
== END 2023-09-21 10:34 | disposition home or self-care (01) ==
LOC: LAB 10:34
PROVIDERS: PCP Family Medicine; Visit Provider Family Medicine
DX: E03.9 Hypothyroidism, unspecified (principal); Z85.46 Personal history of malignant neoplasm of prostate
CPT/HCPCS: 36415; 84153; 84436; 84443; 84481

== ENCOUNTER 2023-12-01 08:58 | Outpatient (OUT) | payer MEDICARE, SELFPAY ==
--- OUTSIDE RECORDS SUMMARY | 2023-12-01 09:06 | XMS_ITS | CCD ---
Author Organization [facility] Care Team Providers Care Garage Mechanic Name Role Phone MD Yolande Monterroso Primary Care Provider [phone] MD Lionel Whitney Attending Provider Yolande Monterroso Primary Care Physician Leidy Plummer Unavailable Unavailable MD Yolande Monterroso Primary Care Provider [phone] MD Lionel Whitney Attending Provider [phone] Zoran Chavez Unavailable SHARON, DR VILLEGAS Admitting Unavailable ABBAS, DR VILLEGAS Attending Unavailable HOY ., DR LANIER Primary Care Unavailable ABBAS, DR VILLEGAS Consulting Unavailable HOY ., DR LANIER Primary Care Unavailable WHITNEY ., DR FLOWERS Consulting Unavailable WHITNEY ., DR FLOWERS Admitting Unavailable WHITNEY ., DR FLOWERS Attending Unavailable GIEDRAITIS, ANDRIUS Admitting Unavailable HOY ., DR LANIER Primary Care Unavailable GIEDRAITIS, ANDZOHAIBUS Attending Unavailable HOY ., DR LANIER Primary Care Unavailable WHITNEY ., DR FLOWERS Consulting Unavailable WHITNEY ., DR FLOWERS Admitting Unavailable WHITNEY ., DR FLOWERS Attending Unavailable CHAVEZ, DR MEEHAN Admitting Unavailable SCOTT, DR MEEHAN Attending Unavailable ZIJERRY, DR ALLI Burgos Consulting Unavailable HOY ., DR LANIER Primary Care Unavailable JAMAICA GONZALEZ Consulting Unavailable DR ZORAN CHAVEZ Consulting Unavailable HOY ., DR LANIER Consulting Unavailable HOY ., DR LANIER Admitting Unavailable HOY ., DR LANIER Primary Care Unavailable HOY ., DR LANIER Attending Unavailable MARAVILLA .DR FATEMEH Consulting Unavailable MAGGIE, DR SOCORRO Zapata Consulting Unavailable PARTHA HYATT Consulting Unavailable DR ZORAN CHAVEZ Attending Unavailable HOY ., DR LANIER Primary Care Unavailable DR ZORAN CHAVEZ Admitting Unavailable HOY ., DR LANIER Consulting [...] DR LANIER Attending Unavailable BROWNSOCORRO Consulting Unavailable WHITNEY ., DR FLOWERS Consulting Unavailable WHITNEY ., DR FLOWERS Admitting Unavailable WHITNEY ., DR FLOWERS Attending Unavailable HOY ., [...] Unavailable WEST, DR SOCORRO Zapata Consulting Unavailable WHITNEY ., DR FLOWERS Consulting Unavailable WHITNEY ., DR FLOWERS Admvidya Unavailable WHITNEY ., DR FLOWERS Attending Unavailable HOY ., [...] Unavailable ZIEBER, DR ALLI Burgos Consulting Unavailable WHITNEY ., DR FLOWERS Consulting Unavailable WHITNEY ., DR FLOWERS Admvidya Unavailable WHITNEY ., DR FLOWERS Attending Unavailable HOY ., DR LANIER Primary Care Unavailable WHITNEY ., DR FLOWERS Consulting Unavailable WHITNEY ., DR FLOWERS Admvidya Unavailable WHITNEY ., DR FLOWERS Attending Unavailable HOY ., DR LANIER Primary Care Unavailable Hoy, MD Yolande Rogers Primary Care Provider [phone] MD Zoran Chavez Attending Provider Gieditis , Duncanrius Kilgore Attending Unavailable Giedraitis , Andrius Magui Attending Unavailable Giedraitis , Andrius Vyteli Attending Unavailable Syeda NOBLE, Andrius Magui Attending Unavailable Syeda NOLBE, Duncanrius Kilgore Attending Unavailable MD Yolande Monterroso Primary Care Provider [phone] PRAFUL LoweryC Esther Attending Provider Yolande Monterroso Primary Care Unavailable Esther Lowery Admitting Unavailable Esther Lowery Attending Unavailable Yolande Monterroso Primary Care Unavailable Esther Lowery Admitting Unavailable Esther Lowery Attending Unavailable Yolande Monterroso Primary Care Unavailable Zoran Chavez Admitting Unavailable Zoran Chavez Attending Unavailable VASU GALEANO Attending Unavailable KELLY ORTIZ Attending Unavailable MD Yolande Monterroso Primary Care Provider [phone] DON Lowery-C Esther Attending Provider Qamar SMITH Attending Unavailable WHITNEY, Lionel Burgos Attending Unavailable NILL, Qamar Burgos Attending Unavailable WHITNEY, Lionel R Attending Unavailable WHITNEY, Lionel R Attending Unavailable WHITNEY, Lionel R Attending Unavailable WHITNEY, Lionel R Admitting Unavailable WHITNEY, Lionel R Referring Unavailable WHITNEY, Lionel R Attending Unavailable WHITNEY, Lionel R Referring Unavailable WHITNEY, Lionel R Attending Unavailable WHITNEY, Lionel R Admitting Unavailable WHITNEY, Lionel R Admitting Unavailable WHITNEY, Lionel R Referring Unavailable WHITNEY, Lionel R Attending Unavailable Allergies Allergy Classification Reported Allergen(s) Allergy Type Date of Onset Reaction(s) Facility (10 sources) Acetaminophen; 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: [acetaminophen] Drug Allergy 0 Itching, Itching agitated, Itching agitated, aggitation [facility] (20 sources) Codeine; 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: [Codeine] Drug Allergy 4 [facility] (10 sources) oxyCODONE; 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: [oxycodone] Drug Allergy 0 Itching, agitated, Itching, agitated, aggitation [facility] (16 sources) Acetaminophen / oxyCODONE; 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: [acetaminophen-oxyc odone] Drug Allergy aggitation [facility] James Comment on above: pt states this does not work for pt, pt is not allergic to vicodin (5 sources) cyclobenzaprine Drug Allergy [address] [facility] (5 sources) HYDROcodone Drug Allergy [address] [facility] (5 sources) tiZANidine Drug Allergy [address] [facility] (3 sources) Acetaminophen / HYDROcodone; 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: [Vicodin] Drug Allergy [facility] (2 sources) Acetaminophen / oxyCODONE Drug Allergy [facility] (1 source) atorvastatin Drug Allergy [facility] (2 sources) tiZANidine Drug Allergy [facility] (1 source) cyclobenzaprine Drug Allergy 4 [facility] (1 source) HYDROcodone Drug Allergy 4 [facility] (1 source) tiZANidine Drug Allergy 4 [facility] (1 source) Acetaminophen / oxyCODONE; 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: [Percocet 5/325] Drug Allergy [facility] Repository Medications Current Medications Medication Drug Class(es) Dates Sig (Normalized) Sig (Original) acetaminophen 325 mg / HYDROcodone bitartrate 5 mg oral tablet (5 sources) Opioid Agonist Start: 08-12-2023 Hydrocodone-Acetam inophen Active 1 TAB PO August 12, 2023 1:00am Start: 02-03-2023 take 1 tablet by barry th every six hours as needed for pain acetaminophen-hydrocodone 325 mg-5 mg or al tablet 1 tab(s), Oral, q6hr as needed for pain, Refill(s) 0 Start Date: 02/03/23 Status: Ordered amLODIPine 10 mg oral tablet (18 sources) Dihydropyridine Calcium Channel Boogie Start: 08-12-2023 Amlodipine Active 10 MG PO August 12, 2023 1:00am Start: 02-10-2023 take 1 tablet by barry [...] Start: 09-19-2021 take 2 tablets by mo uth twice daily carvedilol 6.25 mg Tab 12.5 mg = 2 tab(s), Oral, BID, Refills(s) 0 Start Date: 09/19/21 Status: Ordered Start: 09-19-2021 carvedilol 6.2 5 mg Tab Refills(s) 0 Start Date: 09/19/21 Status: Ordered take 1 tablet by barry every twelve hours Carvedilol 12.5 MG 1 tablet with food Orally Twice a day Active colchicine 0.6 mg oral tablet (4 sources) Start: 02-03-2023 take 1 tablet by mouth once daily as needed for pain Colcrys 0.6 mg oral tablet 0.6 mg = 1 tab(s), Oral, Daily, PRN Gout pain, Refills(s) 0 Start Date: 02/03/23 Status: Ordered diclofenac sodium 75 mg delayed release oral tablet (20 sources) Nonsteroidal Anti-inflammatory Drug Start: 10-17-2021 take 1 tablet by mouth twice daily diclofenac sodium 75 mg Oral EC Tab 75 mg = 1 tab(s), Oral, BID, Refills(s) 0 Start Date: 02/03/23 Status: Ordered Start: 08-07-2019 End: 04-19-2020 take 75 mg by mouth twice daily Diclofenac Sodium Discontinued 75 MG PO Twice daily August 07, 2019 1:00am April 19, 2020 8:04am Tltdaebrain-Cfgxqmrmg-Mwizgy er (9 sources) Anticholinergic, Corticosteroid, beta2-Adrenergic Agonist Start: 08-07-2019 Vxbdmhatxgv-Jcnwnotav-Puemvn er (Trelegy Ellipta) 100-62.5-25 mcg Blister With Device Active 1 INH INHALATION Daily August 07, 2019 3:01pm Start: 08-07-2019 Fluticasone-Um eclidin-Vilanter (Trelegy Ellipta) 100-62.5-25 mcg Blister With Device Active 1 INH INHALATION Daily August 07, 2019 12:00am Start: 08-07-2019 Fluticasone-Um eclidin-Vilanter (Trelegy Ellipta) 100-62.5-25 mcg Blister With Device Active 1 INH INHALATION Daily August 07, 2019 1:00am liothyronine (3 sources) l-Triiodothyronine Start: 10-11-2023 take 25 ug by mouth once daily Liothyronine Active 25 MCG PO Daily October 11, 2023 12:00am Start: 10-04-2023 liothyronine 2 5 mcg Tab Refills(s) 0 Start Date: 10/04/23 Status: Ordered methocarbamol 500 mg oral tablet (1 source) Muscle Relaxant Start: 10-11-2023 take 500 mg by mouth once daily at bedtime Methocarbamol Active 500 MG PO Daily at bedtime October 11, 2023 12:00am Multivitamin preparation (9 sources) Start: 10-17-2021 take 1 tablet by [...] Once a day Active omeprazole 40 mg Cap-EC (2 sources) Start: 08-23-19 take 1 capsule by mouth once daily omeprazole 40 mg Cap-EC 40 mg = 1 cap(s), Oral, Daily, Refills(s) 0, Control of stomach acid Start Date: 08/22/14 Status: Ordered pantoprazole 40 mg delayed release oral tablet (9 sources) Proton Pump Inhibitor Start: 08-12-19 Pantoprazole Active MG PO August 12, 2023 1:00am Start: 02-03-2023 take 1 tablet by barry [...] Ellipta 100 mcg-62.5 mcg-25 mcg inhalation powder (4 sources) Start: 02-03-2023 take 1 puff(s) by inhalation once daily Trelegy Ellipta 100 mcg-62.5 mcg-25 mcg inhalation powder = 1 puff(s), Inhalation, Daily, Refills(s) 0 Start Date: 02/03/23 Status: Ordered Completed/Discontinued Medications Medication Drug Class(es) Dates Sig (Normalized) Sig (Original) allopurinol 300 mg oral tablet (11 sources) Xanthine Oxidase Inhibitor Start: 08-07-2019 End: 04-11-2020 take 300 mg by mouth once daily Allopurinol Discontinued 300 MG PO Daily August 07, 2019 1:00am April 11, 2020 1:50pm cephalexin 500 mg oral capsule (7 sources) Cephalosporin Antibacterial Start: 02-17-2022 End: 08-12-2023 take 500 mg by mouth every twelve hours Cephalexin Discontinued 500 MG PO Q12H 14 7 February 17, 2022 12:00am August 12, 2023 12:08pm Start: 02-17-2022 take 500 mg by mouth [...] procedure, # 2 tab(s), Refills(s) 0, Pharmacy: [facility]/pharmacy #[id number], 170, cm, 01/20/23 [...] procedure, # 6 tab(s), Refills(s) 0, Pharmacy: [facility]/pharmacy #[id number], 170, cm, 09/22/22 12:23:00 EDT, Height/Length Dosing, 78, kg, 02/24/22 10:53:00 EDT, W... Start Date: 12/31/22 Status: Ordered Start: 07-02-2022 take 1 tablet by barry th once daily Cipro 500 mg Tab 500 mg = 1 tab(s), Oral, Daily, Take 1 tablet the day before the procedure and 1 tablet after the procedure, # 6 tab(s), Refills(s) 0, Pharmacy: [facility]/pharmacy #[id number], 170, cm, 02/24/22 [...] procedure, # 2 tab(s), Refills(s) 0, Pharmacy: [facility]/pharmacy #[id number], 170, cm, 11/05/21 11:37:00 EDT, Height/Length Dosing, 78, kg, 11/05/21... Start Date: 11/05/21 Status: Ordered cloNIDine hydrochloride 0.1 mg oral tablet (19 sources) Central alpha-2 Adrenergic Agonist Start: 02-17-2022 End: 10-11-2023 take 0.1 mg by mouth twice daily Clonidine Hcl Discontinued 0.1 MG PO Twice daily February 17, 2022 12:00am October 11, 2023 3:25pm Start: 02-17-2022 take 0.1 mg by mouth twice penny ly Clonidine Hcl Active 0.1 MG PO Twice daily February 17, 2022 12:00am Start: 02-17-2022 take 0.1 mg by mouth twice penny ly Clonidine Hcl Active 0.1 MG PO Twice daily February 17, 2022 12:00am diazePAM 5 mg oral tablet (9 sources) Benzodiazepine Start: 04-19-2020 End: 10-17-2021 take [...] procedure, # 2 cap(s), Refills(s) 0, Pharmacy: [facility]/pharmacy #[id number], 188, cm, 02/10/23 14:22:00 EDT, Height/Length Dosing, 82.9, kg, 02/10/23 14:22:00 EDT, Weight Dosing Start Date: 04/12/23 Status: Ordered irbesartan 300 mg oral tablet (20 sources) Angiotensin 2 Receptor Boogie Start: 10-17-2021 End: 02-06-2022 take 300 mg by mouth once daily at bedtime Irbesartan Discontinued 300 MG PO Daily at bedtime October 17, 2021 12:00am February 06, 2022 2:19pm lidocaine 0.05 mg/mg medicated patch (3 sources) Antiarrhythmic, Amide Local Anesthetic Start: 08-12-2023 End: 10-11-2023 apply 1 dose topically once daily Lidocaine Discontinued 1 PATCH TOPICAL Daily August 12, 2023 1:00am October 11, 2023 3:26pm leave on most painful area for up to 12 hrs lisinopril 40 mg oral tablet (12 sources) Angiotensin Converting Enzyme Inhibitor Start: 06-22-2017 End: 10-17-2021 take 40 mg by mouth at bedtime Lisinopril Discontinued 40 MG PO Bedtime August 07, 2019 1:00am October 17, 2021 12:24pm losartan potassium 100 mg oral tablet (7 sources) Angiotensin 2 Receptor Boogie Start: 02-06-2022 End: 02-17-2022 take 100 mg by mouth once daily at bedtime Losartan Discontinued 100 MG PO Daily at bedtime February 06, 2022 12:00am February 17, 2022 10:48am omeprazole 40 mg delayed release oral capsule (20 sources) Proton Pump Inhibitor Start: 08-22-2014 End: 10-11-2023 take 40 mg by mouth once daily Omeprazole Discontinued 40 MG PO Daily August 07, 2019 1:00am October 11, 2023 3:26pm oxyCODONE hydrochloride 5 mg oral tablet (9 sources) Opioid Agonist Start: 04-19-2020 End: 10-17-2021 take 5 mg by mouth every four to six hours Oxycodone Discontinued 5 MG PO EVERY 4-6 HOURS 70 14 April 19, 2020 October 17, 2021 12:31pm sildenafil 100 mg oral tablet (18 sources) Phosphodiesterase 5 Inhibitor Start: 10-04-2023 take 1 tablet by mouth every twenty-four hours sildenafil 100 mg Tab 100 mg = 1 tab(s), Oral, As Directed, Take 1 tablet 1 hr prior to sexual activity as needed. Don't exceed 1 tab (100 mg) in a 24 hr period., # 30 tab(s), Refills(s) 3, Pharmacy: [id number], 170, cm, 10/04/23 10:36:00 EDT, Height/Length Dosing, 84, kg, 10/04/23 10:36:00 EDT, Weight Dosing Start Date: 10/04/23 Status: Ordered Start: 07-05-2022 take 1 tablet by barry th every twenty-four hours sildenafil 100 mg Tab [...] relations, # 30 tab(s), Refills(s) 3, Pharmacy: [id number], 170, cm, 09/19/21 10:16:00 EDT, Height/Length Dosing, 78, kg, 09/19/21 10:16:00 EDT, Weight Dosing Start Date: 09/19/21 Status: Ordered Problems Active Problems Problem Classification Problem Date Documented Da te Episodic/Chronic Abdominal hernia (18 sources) Umbilical hernia 06-08-2017 Episodic Acute and unspecified renal failure (1 source) Acute kidney failure, unspecified; 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: [ACUTE KIDNEY FAILURE UNSPECIFIED] Onset: 3 Episodic Calculus of urinary tract (20 sources) History of calculus of kidney; 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: [Personal history of urinary calculi] Onset: 2 Episodic Cancer of bladder (20 sources) Malignant tumor of urinary bladder; 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: [Malignant neoplasm of bladder, unspecified] Onset: 2 Chronic Cancer of bladder (5 sources) Personal history of malignant neoplasm of bladder; 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: [History of malignant neoplasm of bladder] Onset: 3 Episodic Cancer of prostate (18 sources) Malignant tumor of prostate 08-22-2014 Chronic Comment on above: just had a surgery d one radical prostectomy at [facility] Cancer of prostate (20 sources) Personal history of malignant neoplasm of prostate; 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: [History of malignant neoplasm of prostate] Onset: 2 Episodic Cancer; other and unspecified primary (2 sources) H/O: malignant neoplasm 10-04-2023 Episodic Chronic obstructive pulmonary disease and bronchiectasis (6 sources) Chronic obstructive lung disease; 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: [Chronic obstructive pulmonary disease, unspecified] 02-03-2023 Chronic Deficiency and other anemia (5 sources) Iron deficiency anemia; 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: [Iron deficiency anemia, unspecified] Onset: 3 Episodic Esophageal disorders (20 sources) Gastroesophageal reflux disease; 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: [Gastro-esophageal reflux disease without esophagitis] Onset: 3 08-22-2014 Chronic Essential hypertension (20 sources) Hypertensive disorder; 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: [Essential hypertension] Onset: 2 08-22-2014 Chronic Fluid and electrolyte disorders (1 source) Hypokalemia; 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: [HYPOKALEMIA] Onset: 3 Episodic Gout and other crystal arthropathies (19 sources) Primary gout; 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: [Other chondrocalcinosis, right knee] Onset: 3 08-22-2014 Chronic Comment on above: lots of inflammation per pt sometimes has to get steroids Immunizations and screening for infectious disease (2 sources) Infectious disease carrier; 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: [Carrier of infectious disease, unspecified] 10-11-2023 Episodic Occlusion or stenosis of precerebral arteries (9 sources) Occlusion and stenosis of bilateral carotid arteries; 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: [Occlusion and stenosis of unspecified carotid artery] Onset: 3 Chronic Osteoarthritis (5 sources) Osteoarthritis; 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: [Osteoarthrosis, unspecified whether generalized or localized, unspecified site] Onset: 2 Chronic Other acquired deformities (17 sources) Spondylolisthesis; 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: [Spondylolisthesis, cervical region] 04-19-2020 Episodic Other acquired deformities (2 sources) Acquired spondylolisthesis; 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: [Spondylolisthesis, cervical region] Episodic Other aftercare (1 source) Other salvage determiner (current) drug therapy; 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: [OTH HEAVY THREADER CURRENT DRUG THERAPY] Onset: 3 Episodic Other and unspecified benign neoplasm (5 sources) History of polyp of colon; 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: [Personal history of colonic polyps] Onset: 3 Episodic Other circulatory disease (18 sources) Ecchymosis 05-06-2017 Episodic Comment on above: [...] Onset: 3 Episodic Other connective tissue disease (18 sources) Impingement syndrome of shoulder region 05-06-2017 Episodic Other connective tissue disease (2 sources) Other symptoms and signs involving the nervous system Episodic Other gastrointestinal disorders (5 sources) Altered bowel function; 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: [Change in bowel habit] Onset: 3 Episodic Other lower respiratory disease (1 source) Other forms of dyspnea; 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: [OTHER FORMS OF DYSPNEA] Onset: 3 Episodic Other male genital disorders (4 sources) Secondary erectile dysfunction; 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: [Erectile dysfunction following radical prostatectomy] Onset: 2 Chronic Other male genital disorders (18 sources) Erectile dysfunction following radical prostatectomy 07-07-2019 [...] Spondylosis; intervertebral disc disorders; other back problems (20 sources) Chronic low back pain; 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: [Low back pain, unspecified] Onset: 4 08-12-2023 Episodic Unclassified (3 sources) LOW BACK PAIN, UNSPECIFIED; 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: [LOW BACK PAIN, UNSPECIFIED] Onset: 3 Unclassified (2 sources) COUGH, UNSPECIFIED; 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: [COUGH, UNSPECIFIED] Onset: 3 Unclassified (1 source) CONTACT W/AND (SUSP) EXPOS COVID-19; 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: [CONTACT W/AND (SUSP) EXPOS COVID-19] Onset: 3 Unclassified (4 sources) Body mass index 20-24 - normal 02-10-2023 Unclassified (1 source) Low back pain, unspecified; 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: [Low back pain, unspecified] Onset: 3 Past or Other Problems Problem Classification Problem Date Documented Da te Episodic/Chronic E Codes: Fall (1 source) Fall on [...] Results Test Name Value Interpretation Reference Range Sheri mejia Patient Educationon 11-26-19 Patient Education Urology Varicocelectomy Varicocelectomy is a procedure to treat a varicocele. A varicocele is a swelling of veins inside the pouch that holds the testicles (scrotum). You may need this surgery if a varicocele is causing pain, shrinking your testicle, or making it hard for you to father a child (infertility). In this surgery, the swollen veins are tied off so that the flow of blood goes to other veins instead. The surgery may be done in different ways, including: ? Open traditional. The repair is done through one large incision. ? Laparoscopic. The repair is done with the help of a thin, lighted tube that has a camera (laparoscope). The scope and other tools are inserted through a few small incisions. ? Microscopic. A microscope is used to find all of the small veins that need repair. Your surgeon will help you decide which approach is best for your condition. Tell a health care provider about: ? Any allergies you have. ? All medicines you are taking, including vitamins, herbs, eye drops, creams, and cigl-heb-csvboav medicines. ? Any problems you or family members have had with anesthetic medicines. ? Any blood disorders you have. ? Any surgeries you have had. ? Any medical conditions you have. What are the risks? Generally, this is a safe procedure. However, problems may occur, including: ? Bleeding. ? Infection. ? Allergic reactions to medicines. ? Damage to the testicle. ? Damage to the blood vessels that supply the testicle. ? Fluid buildup in the scrotum (hydrocele). What happens before the procedure? Staying hydrated Follow instructions from your health care provider about hydration, which may include: ? Up to 2 hours before the procedure ? you may continue to drink clear liquids, such as water, clear fruit juice, black coffee, and plain tea. Eating and drinking restrictions Follow instructions from your health care provider about eating and drinking, which may include: ? 8 hours before the procedure ? stop eating heavy meals or foods, such as meat, fried foods, or fatty foods. ? 6 hours before the procedure ? stop eating light meals or foods, such as toast or cereal. ? 6 hours before the procedure ? stop drinking milk or drinks that contain milk. ? 2 hours before the procedure ? stop drinking clear liquids. Medicines Ask your health care provider about: ? Changing or stopping your regular medicines. This is especially important if you are taking diabetes medicines or blood thinners. ? Taking medicines such as aspirin and ibuprofen. These medicines can thin your blood. Do not take these medicines unless your health care provider tells you to take them. ? Taking ityv-aqu-tywlalj medicines, vitamins, herbs, and supplements. General instructions ? Ask your health care provider: ? How your surgery site will be marked. ? What steps will be taken to help prevent infection. These may include: ? Removing hair at the surgery site. ? Washing skin with a germ-killing soap. ? Taking antibiotic medicine. ? Do not use any products that contain nicotine or tobacco for at least 4 weeks before the procedure. These products include cigarettes, e-cigarettes, and chewing tobacco. If you need help quitting, ask your health care provider. ? Plan to have someone take you home from the hospital or clinic. What happens during the procedure? ? An IV will be inserted into one of your veins. ? You will be given one or more of the following: ? A medicine to help you relax (sedative). ? A medicine to numb the area (local anesthetic). ? A medicine to make you fall asleep (general anesthetic). ? One to three incisions will be made. The size, location, and number of incisions will depend on the technique and approach used by the surgeon. Incisions may be made in any of these areas: ? Abdomen (retroperitoneal approach). ? Groin (inguinal approach). ? Below the groin (subinguinal approach). ? The veins will be clipped or cut and tied off. ? The incisions will be closed with stitches (sutures). Small adhesive strips may also be placed over the incisions. ? The incision area will be covered with a light bandage (dressing). The procedure may vary among health care providers and hospitals. What happens after the procedure? ? Your blood pressure, heart rate, breathing rate, and blood oxygen level will be monitored until you leave the hospital or clinic. ? You will be given pain medicine as needed. ? You may have to wear an athletic support strap to hold the dressing in place and to support your scrotum. ? Do not drive for 24 hours if you were given a sedative during your procedure. Summary ? Varicocelectomy is a procedure to treat a varicocele, which is a swelling of veins inside the pouch that holds your testicles (scrotum). ? In this surgery, the swollen veins are tied off so that the flow of blood goes to other veins instead. ? Follow instructions from your health c (more content not included)... Normal [facility] ([facility])on 11-02-2023 [facility] Diagnosis Info Invalid Interpretation Code [facility] Comment on above: Result Comment: A:Ur ine,Urine:Voided Diagnosis Summary - Diagnosis Summary - The UroVysion FISH study detected normal copy numbers for chromosomes 3, 7, 17, and 9p21. 155 cells were analyzed in this evaluation. No evidence of aneuploidy for chromosomes 3, 7, or 17 or deletion of the 9p21 locus was found in cells present in this specimen. This test does not rule out the possibility of a low grade non-invasive papillary urothelial carcinoma. These findings should be correlated with cytology and cystoscopy results.* Microscopic Notes - Microscopic Notes - Abnormal cells 9p21 deletions: Abnormal cells aneploid events: Total cells analyzed: 155 Hematuria: Gross Description Site ID:A color Light Yellow fixative Alcohol Received 90 mls of clear light yellow fluid with the patient's name and, Urine on the vial. Electronically signed by : on: 11/02/2023 10:22:27 Performed By: #### 1 [id number] ####[facility] [address] [place] [address] Consent for Procedure/Surger yon 10-26-2023 Consent for Procedure/Surgery [id number] 2#1.00TIFF Normal [facility] Consent for Treatmenton Consent for Treatment [id number] #1.00TIFF Normal [facility] IntraOperative Documentson 0 10-26-2023 IntraOperative Documents [id number] 2#1.00TIFF [facility] Main OR Intraoperative Recor don 10-26-2023 Main OR Intraoperative Record IntraOp Document Type FTURO Summary Primary Physician: Lionel WHITNEY MD Finalized Date/Time: 10/26/23 11:57:52 Pt. Name: EMILYMARY SARMIENTO/Sex: 1950 Male Med Rec #: [id number] Physician: Lionel WHITNEY MD Financial #: [id number] Pt. Type: O Room/Bed: / Admit/Disch: 10/26/23 09:34:20 - Institution: Case Times FTURO Entry 1 Patient Times In Room 10/26/23 11:49:00 Out Room 10/26/23 11:57:00 Procedure Times Start 10/26/23 11:51:00 Stop 10/26/23 11:55:00 Anesthesia Times Last Modified By: Fabiana Galaviz 10/26/23 11:57:45 Case Attendance FTURO Entry 1 Entry 2 Entry 3 Case Attendee Lionel WHITNEY MD, Kelsie E McClain DOCUMENTATION IMPROVEMENT SPECIALISTNanci Role Performed Surgeon - Primary Sound Cutter - Primary Scrub - Primary Time In 10/26/23 11:49:00 10/26/23 11:49:00 10/26/23 11:49:00 Time Out 10/26/23 11:57:00 10/26/23 11:57:00 10/26/23 11:57:00 Procedure CYSTOSCOPY LOCAL(.) CYSTOSCOPY LOCAL(.) CYSTOSCOPY LOCAL(.) Comments Last Modified By: Fabiana Galaviz Kelsie E Burgderfer, Kelsie E 10/26/23 11:57:45 10/26/23 11:57:45 10/26/23 11:57:45 Surgical Procedures FTURO Entry 1 Procedure Description Procedure CYSTOSCOPY LOCAL Modifiers . Surgeon Description CYSTO WITH A FISH IN CYTOLOGY Primary Procedure Yes Primary Surgeon Lionel WHITNEY MD Start 10/26/23 11:51:00 Stop 10/26/23 11:55:00 Anesthesia Type Local Surgical Service Urology Wound Class 2 - Clean-Contaminated Last Modified By: Fabiana Galaviz 10/26/23 11:56:32 General Case Data FTURO Pre-Care Text: Classifies surgical wound, implements aseptic technique, initiates traffic control Entry 1 Case Information OR URO 1 FT Case Level None Wound Class 2 - Clean-Contaminated Specialty Transplant Preop Diagnosis HX OF BLADDER AND Postop Same As Preop Yes PROSTATE CANCER Postop Diagnosis HX OF BLADDER AND Outcomes Met? Yes PROSTATE CANCER Last Modified By: Fabiana Galaviz 10/26/23 11:50:13 Post-Care Text: The patient is free from [...] DEVONTE NOBLE, Lionel Burgos, Verified (If Participants Fabiana Galaviz, Applicable) Nanci Baig CST Time Out Complete 10/26/23 11:50:00 Allergies Reviewed? Yes Allergies Reviewed Self/Patient With Body Position Supine Prep Area PENIS Prep Agents Betadine Solution Skin. Condition Intact, [place], Warm, and Description REDDED DOTS ON Dry, Red BILATERAL ARMS Additional FISH Specimens Collected Vitals - EU Blood Pressure 177/93 Pulse 72 bpm Respirations 16 br/min SPO2 97 % EBL 0 IandO - EU Total Intake 0 mL Total Output 0 mL Outcomes Met? Yes Last Modified By: Fabiana Galaviz 10/26/23 11:51:24 Post-Care Text: The patient is free from signs and symptoms of injury caused by extraneous objects Sign Out FTURO Entry 1 Before Patient Leaves OR Nurse verbally Yes Nurse verbally n/a confirms with the confirms with the team the name of team that the procedure(s) instrument, sponge, recorded and needle counts are correct (or N/A) Nurse verbally Yes Nurse verbally Yes confirms with the confirms with the team how the team whether there specimen is labeled are any equipment (including patient problems to be name), if applicable addressed Sign Out Complete 10/26/23 11:55:00 Last Modified By: Fabiana Galaviz 10/26/23 11:56:31 Case Comments Finalized By: Fabiana Galaviz Document Signatures Signed By: Fabiana Galaviz 10/26/23 11:57 Fabiana Galaviz 10/26/23 11:57 Fabiana Galaviz 10/26/23 11:57 Normal [facility] Main OR Preoperative Recordo n 10-26-2023 Main OR Preoperative Record Holding Area Document Type FTURO Summary Primary Physician: Lionel WHITNEY MD Finalized Date/Time: 10/26/23 11:16:48 Pt. Name: EMILYMARY./Sex: 1950 Male Med Rec #: [id number] Physician: Lionel WHITNEY MD Financial #: [id number] Pt. Type: O Room/Bed: / Admit/Disch: 10/26/23 09:34:20 - Institution: Case Times Holding FTURO Pre-Care Text: Verifies consent for planned procedure, identifies individual values and wishes concerning care, includes family members in perioperative teaching Secures patient's records' belongings, and valuables, maintains patient's dignity and privacy, and maintains patient confidentiality Entry 1 In Holding 10/26/23 10:46:00 Outcomes Met? Yes Last Modified By: Nanci Cortes RN 10/26/23 10:46:33 Post-Care Text: The patient participates in decisions affecting his or her perioperative plan of care The patient's right to privacy is maintained Surgery Checklist FTURO Entry 1 Patient Birthday, ID Band Procedure History and Physical, Identification: Check, Patient Verification: Surgical Consent, With Participation Patient NPO after Midnight: n/a Personal Items: Dentures, Glasses, Jewelry Personal Items UPPER DENTURES; Limitations: UP AD ABIODUN Comment: GLASSES; RING X 1 Complaints of Pain: No Pain Comment: 0/10 Skin Integrity Bruised, Dry, Warm Vitals - EU Blood Pressure 177/93 Pulse 72 bpm Respirations 16 br/min SPO2 97 % Additional Other (See Comment) Specimens Comment NEED FISH AND CYTOLOGY Specimens Collected RN Reviewed Yes Last Modified By: Nanci Cortes RN 10/26/23 11:11:29 General Comments: ECCHYMOSIS TO BILATERAL ARMS. ANTHALIE WELLS Finalized By: Nanci Cortes RN Document Signatures Signed By: Nanci Cortes RN 10/26/23 11:11 Nanci Cortes RN 10/26/23 11:16 Normal [facility] Operative Reporton Operative Report Patient: MARY DIAZ Age: 73 years Sex: Male : 1950 Associated Diagnoses: None Author: Lionel WHITNYE MD Procedure Operative Information Details: Date/ Time: 10/26/2023 11:57:00. Pre-Op Dx: Hx of Bladder CA - [...] Urethra is: Absent. The Bladder is: Abnormal, Trabeculated No bladder tumors. At prior resection sites on the left wall and the anterior back surface there are still some areas of necrosis with calcifications. Some of these were aimee loose with the beak of the scope. No tumors anywhere in the bladder.. The ureteral orifices: Show efflux of clear urine. Specimens Removed: Bladder wash sent for FISH and Cytology test. Devices Implanted: None. Removal: Cystoscope is removed, The patient tolerated it well. Postoperative Information Discharge: Patient is discharged home with antibiotic coverage, Follow up arranged. Normal [facility] Comment on above: Result Comment: Elec tronically Signed By: Lionel WHITNEY MD\.br\Date and Time Signed: 10/26/23 11:58 EDT Outpatient Surgery Discharge Instructionon 10-26-2023 Outpatient Surgery Discharge Instruction [id number] 2#1.00TIFF Normal [facility] UroVysion Fish and Urine Cyt o ([facility])on 10-26-2023 [facility] Method of Extraction Voided Normal [facility] Comment on above: Performed By: #### 1 [id number] ####[facility] [address] [place] [address] [facility] Number of Jars 1 Invalid Interpretation Code [facility] Comment on above: Performed By: #### 1 [id number] ####[facility] [address] [place] [address] [facility] Specimen Urine Normal [facility] Comment on above: Performed By: #### 1 [id number] ####[facility] [address] [place] [address] [facility] Type of Service Technical Only Normal [facility] Comment on above: Performed By: #### 1 [id number] ####[facility] [address] [place] [address] Ambulatory Visit Summaryon 0 10-04-2023 Ambulatory Visit Summary MARY DIAZ :1950 Visit Date:10/04/2023 Ambulatory Visit Instructions Your Diagnosis History of prostate cancer Personal history of bladder cancer History of kidney stones Impotence Your Care Team Attending Physician - Lionel WHITNEY MD Primary Care Physician - Yolande Monterroso MD This Is Your Medications List sildenafil (sildenafil 100 mg Tab) Contact prescribing physician if questions or concerns amlodipine (amLODIPine 5 mg Tab) colchicine (Colcrys 0.6 mg oral tablet) diclofenac (diclofenac sodium 75 mg Oral EC Tab) fluticasone/umeclidi nium/vilanterol (Trelegy Ellipta 100 mcg-62.5 mcg-25 mcg inhalation powder) liothyronine (liothyronine 25 mcg Tab) pantoprazole (Pantoprazole [address] Tab) Procedures Performed Cystoscopy (04/27/2023), TURBT - Transurethral resection of bladder tumor (01/14/2023), TURBT - Transurethral resection of bladder tumor (02/17/2022), TURBT - Transurethral resection of bladder tumor (10/29/2021), Cystourethroscopy with dilation of urethral stricture (10/14/2021), Repair of umbilical hernia (06/22/2017), Arthroscopy of shoulder (05/20/2017), bilateral fifth partial metatarsal osteotomies and Silver Tailor's bunionectomies (08/29/2014), Radical prostatectomy (08/2014), Colonoscopy (05/2014), Complete repair of rotator cuff (2010), Shoulder reconstruction (1998), Appendectomy (1964), Arthroplasty of the ankle, Arthroscopy of knee, Cervical vertebral fusion. Discharge Vitals Heart Rate (Peripheral) 72 Respiratory Rate 16 Blood Pressure 136/88 Height 170 cm Height 67 in Weight 84 kg Weight 184.8 lb BMI 29.07 What to do next Scheduled Follow-Up Appointments Wednesday. 2023 12:00 PM EDT With: Where: [facility] Wednesday. 2023 10:00 AM EDT With: Where: [facility] Wednesday 10:15 AM EDT With: DEVONTE NBOLE, Lionel Burgos Where: [facility] Patient Educationon 10-04-19 24 Patient Education Oncology Cancer Screening for Men A cancer screening is a test or exam that checks for cancer. Your health care provider will recommend specific cancer screenings based on your age, medical history (including risk factors), and family history of cancer. Work with your health care provider to create a cancer screening schedule that protects your health. Who should have screening? All men should be considered for screening of certain cancers, including colorectal cancer, prostate cancer, lung cancer, and skin cancer. Your health care provider may recommend screenings for other types of cancer if: ? You had cancer before. ? You have a family member with cancer. ? You have abnormal genes that could increase the risk of cancer. ? You have risk factors for certain cancers, such as current or past use of tobacco products, or being overweight. When you should be screened for cancer depends on: ? Your age. ? Your medical history and your family's medical history. ? Certain lifestyle factors, such as smoking or other use of tobacco products. ? Environmental exposure, such as to asbestos. How is screening done? Colorectal cancer All adults should have screenings starting at age 45 and continuing until age 75. Your health care provider may recommend screening before age 45. You will have tests every 1?10 years, depending on your results and the type of screening test. People at increased risk should start screening at an earlier age. Talk with your health care provider about [...] fecal occult blood test (FOBT). This test can find blood in stool. It can be done at home with a kit. ? Fecal immunochemical test (FIT). This test can find blood in stool. For this test, you will need to collect stool samples at home. ? Stool DNA test. This test looks for blood in stool and any changes in DNA that can lead to colon cancer. For this test, you will need to collect a stool sample at home and send it to a lab. Prostate cancer Prostate cancer screening for men with average risk may start at age 50. Men with risk factors may need to be screened earlier, at ages 40?45. Talk with your health care provider about whether screening is right for you and, if so, how often you should be screened. Prostate cancer screening is done with blood tests and a digital rectal exam. During this exam, a health care provider uses a gloved finger to check prostate size. You may need to be screened for prostate cancer if: ? You have risk factors for prostate cancer, such as being or having a close family member with prostate cancer. ? You have had gene changes or a genetic condition that was passed on to you from a parent (inherited). These gene changes or genetic conditions include BRCA1 or BRCA2 gene mutations or Ivey syndrome. ? You have symptoms of prostate cancer, such as problems urinating or problems getting or keeping an erection (erectile dysfunction). When you have been screened for prostate cancer, future screening may be recommended based on the results of your blood tests. Lung cancer Lung cancer screening is done with a CT scan that looks for abnormal changes in the lungs. Discuss lung cancer screening with your health care provider if you are 50?80 years old and if any of the following apply to you: ? You currently smoke. ? You used to smoke heavily. ? You have a smoking history of 1 pack of cigarettes a day for 20 years or 2 packs a day for 10 years. ? You have quit smoking within the past 15 years. You may need to be screened every year if you smoke heavily or if you used to smoke. Skin cancer Skin cancer screening is done by checking the skin for unusual moles or spots and any changes in existing moles. Your health care provider should check your skin for signs of skin cancer at every physical exam. You should check your skin every month and tell your health care provider right away if anything looks unusual. Men with a qrdwxl-qezw-kaeybq risk for skin cancer may want to see a cat skinner (typesetter apprentice) for an annual body check. What are the benefits of screening? Cancer screening is done to look for cancer in the very early stages, before it spreads and becomes harder to treat and before you would start to notice symptoms. Finding cancer early improves the chances of successful treatment. It ma (more content not included)... Normal [facility] Urology Office/Clinic Noteon 10-04-2023 Urology Office/Clinic Note Chief Complaint 8m PSA HPI Staff F/u to cysto done 04/27/23 with PSA Dx: bladder cancer, hx of prostate cancer (radical prostatectomy 08/2014) hx of kidney stones and impotence. PSA done 10/13/23 is <0.13 Sildenafil 100mg PRN & 4P injections. Denies pain/burning and visible blood in urine. Denies flank pain. Denies all urinary complaints. No concerns at this time. History of Present Illness Tests reviewed: reviewed UA, PSA I have reviewed the previous health record information and history for this patient from Dr. Whitney. I have reviewed and verified the staff HPI to be accurate for this encounter. Review of Systems PHQ Score Initial Depression Screen Score: 0 SCORE ROS - Provider Constitutional: denies weight loss, [...] HPI. Physical Exam Vitals & Measurements HR: 72(Peripheral) RR: 16 BP: 136/88 HT: 67 in HT: 170 cm WT: 84 kg WT: 184.8 lb BMI: 29.07 General Appearance: alert, no distress, well nourished, well developed male. Genitourinary: normal scrotum, normal testes, normal urethra, normal epididymis, normal vas deferens/spermatic cord. Flank Pain: none. Bladder: nonpalpable. Assessment/Plan 1. History of prostate cancer (Z85.46: Personal history of malignant neoplasm of prostate) PSA 07/05/20 - 0.05 09/12/21 - 0.05 09/21/22 - <0.13 09/21/23 - <0.13 S/p radical prostatectomy 08/2014. PSA remains stable and nearly undetectable. Will continue to monitor. -PSA in 1 year 2. Personal history of bladder cancer (Z85.51: Personal history of malignant neoplasm of bladder) Path report from 10/29/2021 is non-invasive, low grade TCC [2]. Cysto TURBT done 02/17/2022. Unclear path. [1] S/p Cysto 01/05/23 and TURBT 01/14/23 - neg path report. S/p Cysto 04/27/23 - Prior resection sites with necrotic debris attached. No evidence of bladder tumors or suspicious lesions. UA today shows trace-lysed blood. Denies gross hematuria. Admits his urine has been cloudy. Has been trying to increase fluid intake. -Cysto with FISH/Cytology scheduled 10/26/23 3. History of kidney stones (Z87.442: Personal history of urinary calculi) Has family hx of stones (sister and son). No recent stone episodes or imaging. 4. Impotence (N52.31: Erectile dysfunction following radical prostatectomy) Sildenafil 100mg PRN and 4P injection therapy. No concerns. -Cont meds above. Refills of Sildenafil sent. Follow-up With When Contact Information DEVONTE NOBLE, Lionel Burgos, URL [facility] [address], [place] [phone] Additional Instructions: 1 yr w/ PSA Patient Education Cancer Screening for Men I, Lilo Zhou, personally scribed for Dr. Whitney on 10/04/2023 11:08:56. . Documentation recorded by the scribe, Lilo Zhou, accurately reflects the services(s) I performed and decisions made by me. Authenticated by Dr. Whitney on 10/04/2023 11:16:07. Problem List/Past Medical History Ongoing Acute gouty arthritis Bladder cancer BMI 23.0-23.9, adult Change in bowel habits Chronic GERD Chronic obstructive pulmonary disease GERD (gastroesophageal reflux disease) History of kidney stones History of prostate cancer HTN (hypertension) Impotence Iron deficiency anemia Personal history of bladder cancer Personal history of colonic polyps Spondylolisthesis of cervical region Historical Acid reflux Cancer of prostate Procedure/Surgical History Cystoscopy (04/27/2023), TURBT - Transurethral resection of bladder tumor (01/14/2023), TURBT - Transurethral resection of bladder tumor (02/17/2022), TURBT - Transurethral resection of bladder tumor (10/29/2021), Cystourethroscopy with dilation of urethral stricture (10/14/2021), Repair of umbilical hernia (06/22/2017), Arthroscopy of shoulder (05/20/2017), bilateral fifth partial metatarsal osteotomies and Silver Tailor's bunionectomies (08/29/2014), Radical prostatectomy (08/2014), Colonoscopy (05/2014), Complete repair of rotator cuff (2010), Shoulder reconstruction (1998), Appendectomy (1964), Arthroplasty of the ankle, Arthroscopy of knee, Cervical vertebral fusion. Medications amLODIPine 5 mg Tab, 5 mg= 1 tab(s), Oral, Daily Colcrys 0.6 mg oral tablet, 0.6 mg= 1 tab(s), Oral, Daily, PRN diclofenac sodium 75 mg Oral EC Tab, 75 mg= 1 tab(s), Oral, BID liothyronine 25 mcg Tab Pantoprazole [address] Tab, 40 mg= 1 tab(s), Oral, Daily sildenafil 100 mg Tab, 100 mg= 1 tab(s), Oral, Daily, 3 refills Trelegy Ellipta 100 mcg-62.5 mcg-25 mcg inhalation po (more content not included)... Normal [facility] Comment on above: Result Comment: Elec tronically Signed By: DEVONTE NOBLE, Lionel Burgos\.br\Date and Time Signed: 10/04/23 11:16 EDT\.br\Electronically Co-Signed By: Lilo Zhou\.br\Date and Time Co-Signed: 10/04/23 11:14 EDT Reminderson 09-29-2023 Reminders - From: Loretta Simons To: [facility] - Recalls Devonte; Cc: Loretta Simons; Sent: 06/28/2023 10:52:09 EST Show up: 09/20/2023 10:52:00 EDT Subject: Cysto/6 mo Due Date/Time: 10/11/2023 10:52:00 EDT Reminder/Recall Patient is due in October 2023 for 6 month cysto/fish/cytol, PSA (bt ck) Spoke to austyn hendricks for 10/26/23 at [facility]. LG Patient will be due in Apr 2024 for 6 month cysto/fish/cytol (bt ck) Normal [facility] Lab Reportson 09-22-2023 Lab Reports [id number] #1.00TIFF Normal [facility] MR cervical spine wo/w conon 08-29-2023 MR cervical spine wo/w con [facility] Main [address] [address] MRI Report Signed Patient: Mary Diaz MR#: [id number] : 1950 Acct:[id number] Age/Sex: 73 / M ADM Date: 08/28/23 Loc: MR Room: Type: DEP CLI Attending Dr: Esther HILTON Copies to: LIDA [...] Lupe Campos M.D.08/29/2023 1:06 PM Dictation Location: [place] [address] Transcribed By: [facility] 08/29/23 1306 Dictated By: Lupe Campos MD 08/29/23 1254 Signed By: 08/29/[address] [facility] Creatinine (Bld) [Mass/Vol]O rdered By: Esther Lowery on 08-28-2023 Creatinine [Mass/Vol] 1.2 mg/dL 0.6-1.3 [facility] Comment on above: ER/ESD physician is notified/shown all ISTAT results.Critical values may be confirmed by laboratory testing ifdeemed necessary by ER attending doctor. ISTAT XRay CREon 08-28-2023 Creatinine [Mass/Vol] 1.2 mg/dL Normal 0.6-1.3 [facility] Comment on above: Result Comment: ER/E SD physician is notified/shown all ISTAT results. Critical values may be confirmed by laboratory testing if deemed necessary by ER attending doctor. Performed By: #### I SCRE #### [facility] [address] [place] [address] ISTAT GFR > 60.[address] [facility] Comment on above: Result Comment: PERF ORMED BY: [place] [address] PATHOLOGIST MODELING AGENT JENARO FLOREZ M.D. Performed By: #### I SCRE #### [address] No Panel InformationOrdered By: Etsher Lowery on 08-28-2023 Bedside Estimated GFR (eGFR) > 60.0 [facility] XR cervical spine LAT/FLX/EX Ton 08-12-2023 XR cervical spine LAT/FLX/EXT [facility] Main [place] [address] [place] [address] XRay Report Signed Patient: Mary Diaz MR#: [id number] : 1950 Acct:[id number] Age/Sex: 73 / M ADM Date: 08/12/23 Loc: XD Room: Type: [facility] CLI Attending Dr: Esther Lowery SOCIAL CONTACT WORKER-C Copies to: LIDA Flynn Ordering Provider: LIDA [...] Kenny Leahy M.D.08/12/2023 3:29 PM Dictation Location: [place] [address] Transcribed By: [facility] 08/12/23 1529 Dictated By: Kenny Leahy DO 08/12/23 1528 Signed By: 08/12/23 [facility]9 [facility] XR lumbar spine 6V w bending on 08-12-2023 XR lumbar spine 6V w bending [facility] Main [place] [address] [place] [address] XRay Report Signed Patient: Mary Diaz MR#: [id number] : 1950 Acct:[id number] Age/Sex: 73 / M ADM Date: 08/12/23 Loc: XD Room: Type: [facility] CLI Attending Dr: Esther Lowery SOCIAL CONTACT WORKER-C Copies to: LIDA Flynn Ordering Provider: LIDA [...] Kenny Leahy M.D.08/12/2023 3:28 PM Dictation Location: [facility]-14 Transcribed By: [facility] 08/12/23 1528 Dictated By: Kenny Leahy DO 08/12/23 1526 Signed By: 08/12/23 1528 [facility] UroVysion Fish and Urine Cyt o ([facility])on 05-26-2023 [facility] Revision Information Invalid Interpretation Code [facility] Comment on above: Result Comment: Jimbo ection Reason -[ To Nur, 05/26/23 - 14:52 ] Corrected report issued to include PMS/PWS. The diagnosis remains unchanged. Correction Notes - Performed By: #### 1 [id number] ####[facility] [address] [place] [address] Consent for Procedure/Surger yon 04-27-2023 Consent for Procedure/Surgery [id number] #1.00TIFF [facility] Consent for Treatmenton Consent for Treatment [id number] #1.00TIFF [facility] [facility] IntraOperative Documentson 1 06-27-2022 IntraOperative Documents [id number] #1.00TIFF [facility] Main OR Intraoperative Recor don 04-27-2023 Main OR Intraoperative Record IntraOp Document Type FTURO Summary Primary Physician: Lionel WHITNEY MD Finalized Date/Time: 04/27/23 11:02:57 Pt. Name: MARY DIAZO.B./Sex: 1950 Male Med Rec #: [id number] Physician: Lionel WHITNEY MD Financial #: [id number] Pt. Type: O Room/Bed: / Admit/Disch: 04/27/23 [...] Nanci Luna Role Performed Surgeon - Primary Sound Cutter - Primary Scrub - Primary Time In 04/27/23 10:52:00 04/27/23 10:52:00 04/27/23 10:52:00 Time Out 04/27/23 11:05:00 04/27/23 11:05:00 04/27/23 11:05:00 Procedure CYSTOSCOPY LOCAL(.) CYSTOSCOPY LOCAL(.) CYSTOSCOPY LOCAL(.) Comments Last Modified By: Edgard RN, CNOR, Edgard ZELAYA, EDITHOR, Edgard ZELAYA, EDITHOR, Cheryl 04/27/23 Cheryl 04/27/23 Cheryl 04/27/23 11:00:58 11:00:58 11:00:58 Surgical Procedures FTURO Entry 1 Procedure Description Procedure CYSTOSCOPY LOCAL Modifiers . Surgeon Description CYSTO Primary Procedure Yes Primary Surgeon Lionel WHITNEY MD Start 04/27/23 10:56:00 Stop 04/27/23 11:00:00 Anesthesia Type Local Surgical Service Urology Wound Class 2 - Clean-Contaminated Last Modified By: Edgard ZELAYA, EDITHOR, Cheryl 04/27/23 11:01:00 General Case Data FTURO [...] By: PAULINA Rene RN, Ruthann 04/27/23 11:02 [facility] Main OR Preoperative Recordo n 11-07-2023 Main OR Preoperative Record Holding Area Document Type FTURO Summary Primary Physician: Lionel WHITNEY MD Finalized Date/Time: 04/27/23 10:26:02 Pt. Name: MARY DIAZ /Sex: 1950 Male Med Rec #: [id number] Physician: Lionel WHITNEY MD Financial #: [id number] Pt. Type: O Room/Bed: / Admit/Disch: 04/27/23 [...] Complaints of Pain: No Skin Integrity Intact, Leighton, Warm, & Dry Vitals - EU Blood Pressure 167/96 Pulse 76 bpm Respirations 20 br/min SPO2 97 % Last Modified By: Avani Costello LPN 04/27/23 10:25:57 General Comments: Temp 36.7 Finalized By: Avani Costello LPN Document Signatures Signed By: Avani Costello LPN 04/27/23 10:26 Normal [facility] Operative Reporton 3 Operative Report Patient: MARY DIAZ Age: 73 years Sex: Male : 1950 Associated Diagnoses: None Author: Lionel WHITNEY MD Procedure Operative Information Details: Date/ Time: [...] repeat a surveillance cystoscopy in 6 months.. [facility] Comment on above: Result Comment: Elec tronically Signed By: Lionel WHITNEY MD\.br\Date and Time Signed: 04/27/23 11:04 EST Outpatient Surgery Discharge Instructionon 04-27-2023 Outpatient Surgery Discharge Instruction [id number] #1.00TIFF [facility] Reminderson 04-27-2023 Reminders - From: Loretta Simons To: EU - Recalls Devonte; Cc: Loretta Simons; Sent: 03/05/2023 14:06:16 EDT Show up: 07/22/2023 14:06:00 EST Subject: Cysto/fish/cytol, Due Date/Time: 08/09/2023 14:06:00 EST Reminder/Recall Patient is due in August 2023 for 4 month cysto/fish/cytol (bt ck), ? PSA Pt will be due in October 2023 for 6 month cysto [facility]ysion Fish and Urine Cyt o ([facility])on 04-27-2023 [facility] Method of Extraction Voided Normal [facility] Comment on above: Performed By: #### 1 [id number] ####[facility] [address] [place] [address] [facility] Number of Jars 1 Invalid Interpretation Code [facility] Comment on above: Performed By: #### 1 [id number] ####[facility] [address] [place] [address] [facility] Specimen Urine Normal [facility] Comment on above: Performed By: #### 1 [id number] ####[facility] [address] [place] [address] [facility] Type of Service Technical Only Normal [facility] Comment on above: Performed By: #### 1 [id number] ####[facility] [address] [place] [address] Outside Colonoscopyon 2022 Outside Colonoscopy [id number] #1.00CD:127 Normal [facility] Reminderson 03-16-2023 Reminders - From: Stephanie Fletcher LPN To: N - Clinical; Sent: 03/16/2023 07:57:36 EDT Show up: 02/08/2028 07:00:00 EDT Subject: colonoscopy recall Due Date/Time: 03/10/2028 07:00:00 EDT Reminder/Recall Patient due for surveillance colonoscopy 03/10/2028 due to history of colonic polyps. Normal [facility] Consent for Procedure/Surger yon 02-11-2023 Consent for Procedure/Surgery [id number]# 1.00CD:127 Normal [facility] Ambulatory Visit Summaryon 0 02-10-2023 Ambulatory Visit Summary MARY DIAZ :1950 Visit Date:02/10/2023 Ambulatory Visit Instructions Your Care Team Attending Physician - LUIS NOBLE, Qamar Burgos Primary Care Physician - Yolande Monterroso MD This Is Your Medications List Contact [...] Lionel Burgos Where: [facility] Normal [facility] Physician Referralon 023 Physician Referral [id number] #1.00CD:127 Normal [facility] UroVysion Fish and Urine Cyt o ([facility])on 02-03-2023 [facility] Revision Information Invalid Interpretation Code [facility] Comment on above: Result Comment: Jimbo ection Reason -[ To Nur, 02/03/23 - 12:32 ] Corrected report issued to update PMS/PWS. The diagnosis remains unchanged. Correction Notes - Performed By: #### 1 [id number] ####[facility] [address] [place] [address] Operative Reporton Operative Report [id number] #1.00CD:127 Normal [facility] Ambulatory Visit Summaryon 0 01-20-2023 Ambulatory Visit Summary MARY DIAZ :1950 Visit Date:01/20/2023 Ambulatory Visit Instructions Your Diagnosis Bladder cancer History of prostate cancer History of kidney stones Impotence Your Care Team Attending Physician - DEVONTE NOBLE, Lionel Burgos Primary Care Physician - Yolande Monterroso MD This Is Your Medications List ciprofloxacin [...] 2:20 PM EDT With: LUIS NOBLE, Qamar R Where: General Surgery [facility] Normal [address] [place] [address]- \.br\ You Need to Schedule the Following Appointments\.br \ Follow Up with DEVONTE NOBLE, Lionel Burgos, URL When: \.br\ Comments:\.br\ sched cysto\.br\ Where:\.br\ [facility] [address]\.br\ [place] [address]-\.br\ [phone]\.br\ Medications\.br\ What How Much When Instructions\.br \ New ciprofloxacin (Cipro 500 mg Tab) 1 Tablets By Mouth Every day take one tab day before procedure and one tab after procedure Pickup at [facility]/pharmacy #[id number]\.br\ Unchanged sildenafil (sildenafil 100 mg Tab) 1 [...] if questions or concerns \.br\ Pharmacy Information\.br\ [facility]/pharmacy #[id number]: [address], [place] [phone]\.br\ Allergies\.br\ Percocet 5/325\.br\ codeine (hives/rashes)\. br\ Problems\.br\ [...] these instructions at home:\.br\ ? \.br\ Take vpkm-eaq-adcfpju and prescription medicines only as told by [...] Where to find more information\.br\ ? \.br\ [place] [employer] (ACS): cancer.org\.br\ ? \.br\ National Cancer Dyer (NCI): cancer.gov\.br\ Contact a health care provider [...] based on the stage of your cancer.\.br\ [facility] Ambulatory Visit Summary MARY DIAZ :1950 Visit Date:01/20/2023 Ambulatory Visit Instructions Your Diagnosis Bladder cancer History of prostate cancer History of kidney stones Impotence Your Care Team Attending Physician - Lionel WHITNEY MD Primary Care Physician - Yolande Monterroso MD This Is Your Medications List Contact [...] [place] [facility] [address] [place] [address] [place] [address]- \.br\ You Need to Schedule the Following Appointments\.br \ Follow Up with Lionel WHITNEY MD, URL When: \.br\ Comments:\.br\ sched cysto\.br\ Where:\.br\ [facility] [address]\ [place] [address]-\.br\ [phone]\.br\ Medications\.br\ What How Much When Instructions\.br \ [...] these instructions at home:\.br\ ? \.br\ Take gqie-rzm-cijeedg and prescription medicines only as told by [...] Where to find more information\.br\ ? \.br\ [place] [employer] Society (ACS): cancer.org\.br\ ? \.br\ National Cancer Dyer (NCI): cancer.gov\.br\ Contact a health care provider [...] to you by your health care pro [facility] Pathology Noteon 01-20-2023 Pathology Note [id number] #1.00CD:127 Normal [facility] Patient Educationon 01-21-20 23 Patient Education [...] Follow these instructions at home: ? Take zavl-sdf-cgaedjp and prescription medicines only as told by [...] important. Where to find more information ? [place] [employer] (ACS): cancer.org ? National Cancer Dyer (NCI): cancer.gov Contact a health care provider [...] have wi (more content not included)... Normal [facility] Urology Office/Clinic Noteon 01-20-2023 Urology Office/Clinic [...] and history for this patient from Dr. Whitney. I have reviewed and verified the staff [...] [facility] [address], [place] [address] [phone] Additional Instructions: sched cysto Patient Education Bladder Cancer I, Lilo Zhou, personally scribed for Dr. Whitney on 01/20/2023 11:37:43. . Documentation recorded by the scribe, Lilo Zhou, accurately reflects the services(s) I performed and decisions made by me. Authenticated by Dr. Whitney on 01/20/2023 11:40:53. Problem List/Past Medical History [...] Arthroplasty of th (more content not included)... [facility] Comment on above: Result Comment: Elec tronically Signed By: Lionel WHITNEY MD\.br\Date and Time Signed: 01/20/23 11:40 EDT\.br\Electronically Co-Signed By: Lilo Zhou\.br\Date and Time Co-Signed: 01/20/23 11:37 EDT Lab Reportson 01-11-2023 Lab Reports [id number] #1.00CD:127 [facility] Consent for Procedure/Surger yon 01-05-2023 Consent for Procedure/Surgery [id number]#1.00CD:127 [facility] Consent for Treatmenton 12-19 Consent for Treatment [id number] #1.00CD:127 [facility] IntraOperative Documentson 0 01-05-2023 IntraOperative Documents [id number]#1.00CD:127 Normal [facility] Main OR Intraoperative Recor don 01-05-2023 Main OR Intraoperative Record IntraOp Document Type FTURO Summary Primary Physician: Lionel WHITNEY MD Finalized Date/Time: 01/05/23 10:57:53 Pt. Name: MARY DIAZ /Sex: 1950 Male Med Rec #: [id number] Physician: Lionel WHITNEY MD Financial #: [id number] Pt. Type: O Room/Bed: / Admit/Disch: 01/05/23 09:57:46 - Institution: Case Times FTURO Entry 1 Patient Times In Room 01/05/23 10:38:00 Out Room 01/05/23 10:54:00 Procedure Times Start 01/05/23 10:41:00 Stop 01/05/23 10:50:00 Anesthesia Times Last Modified By: Edgard ZELAYA, EDITHOR, Cheryl 01/05/23 10:51:01 Case Attendance FTURO Entry 1 Entry 2 Entry 3 Case Attendee Lionel WHITNEY MD RN, CNOR, Eulalia GROSS, Zora Luna Role Performed Surgeon - Primary Sound Cutter - Primary Scrub - Primary Time In [...] CYSTO Primary Procedure Yes Primary Surgeon Lionel WHITNEY MD Start 01/05/23 10:41:00 Stop 01/05/23 10:50:00 [...] Verified Availability Equipment, Medication Time Out Lionel WHITNEY MD, Verified (If Participants Edgard ZELAYA, EDITHOR, Applicable) Eulalia Luna CST, Zora Baxter Time Out Complete 01/05/23 10:41:00 Allergies Reviewed? [...] PAULINA Rene RN, Ruthann 01/05/23 10:57 Normal [facility] Main OR Preoperative Recordo n 01-05-2023 Main OR Preoperative Record Holding Area Document Type FTURO Summary Primary Physician: Lionel WHITNEY MD Finalized Date/Time: 01/05/23 10:43:08 Pt. Name: MARY DIAZ/Sex: 1950 Male Med Rec #: [id number] Physician: Lionel WHITNEY MD Financial #: [id number] Pt. Type: O Room/Bed: / Admit/Disch: 01/05/23 [...] ZELAYA, Cheryl GALLARDO Document Signatures Signed By: Sophia ZELAYA Nanci Y 01/05/23 10:16 Nanci Cortes RN 01/05/23 10:13 Nanci Cortes RN 01/05/23 10:16 Nanci Cortes RN 01/05/23 10:15 Nanci Cortes RN 01/05/23 10:13 Edgard ZELAYA, Cheryl GALLARDO 01/05/23 10:43 Normal [facility] Operative Reporton Operative Report Patient: MARY DIAZ Age: 72 years Sex: Male : 1950 Associated Diagnoses: None Author: Lionel WHITNEY MD Procedure Operative Information Details: Date/ Time: [...] tumor has developed in these areas.. Normal [facility] Comment on above: Result Comment: Elec tronically Signed By: DEVONTE NOBLE, Lionel Ernandez\Date and Time Signed: 01/05/23 10:59 EDT UroVysion Fish and Urine Cyt o ([facility])on 01-05-2023 [facility] Method of Extraction Bladder Wash Normal [facility] Comment on above: Performed By: #### 1 [id number] ####[facility] [address] [place] [address] [facility] Number of Jars 1 Invalid Interpretation Code [facility] Comment on above: Performed By: #### 1 [id number] ####[facility] [address] [address] [facility] Specimen Urine Normal [facility] Comment on above: Performed By: #### 1 [id number] ####[facility] [address] [place] [address] [facility] Type of Service Technical Only Normal [facility] Comment on above: Performed By: #### 1 [id number] ####[facility] [address] [place] [address] MR lumbar spine wo conon MR lumbar spine wo con [facility] [place] [address] MRI Report Signed Patient: Mary Diaz MR#: [id number] : 1950 Acct:[id number] Age/Sex: 72 / M ADM Date: 01/01/23 Loc: Room: Type: [facility] Attending Dr: Zoran Chavez MD Copies [...] Jamaica Alas M.D.01/01/2023 2:48 PM Dictation Location: [place] [address] Transcribed By: [facility] 01/01/23 7191 Dictated By: Jamaica Alas II, MD 01/01/231440 Signed By: 01/01/[address] [facility] Retail - Clinical Noteon Retail - Clinical Note [id number] #1.00CD:127 Normal [facility] XR CSPINE MIN 4 VIEWSon XR [...] ALLI CORTES Date: 2022-10-23 11:53 Normal [facility] XR LSPINE W_OBLS AND FLEX_EX Ton 10-23-2022 XR LSPINE W_OBLS AND FLEX_EXT EXAM: XR LSPINE W_OBLS AND FLEX_EXT HISTORY: Low back pain COMPARISON: None. TECHNIQUE: 2 views Findings/impression: Retrolisthesis of L2 over L3 by 4 mm. Multilevel endplate degenerative changes, disc disease, and anterior spurring. Calcified atherosclerotic disease of aorta. No acute fracture. Electronically authenticated by: JAMAICA GONZALEZ Date: 2022-10-23 13:18 Normal [facility] BNPon 10-06-2022 Natriuretic peptide B (Bld) [Mass/Vol] 844.0 pg/mL Normal <=900.0 [facility] Comment on above: Performed By: #### C [facility] #### [facility] [address] [place] [address] Dr. Johnna Dixon CBC AUTO DIFFon 10-06-2022 BASO # 0.0 103/ul Normal 0.0-0.1 [facility] Comment on above: Performed By: #### C BC #### [facility] [address] [place] [address] Dr. Johnna Dixon Basophils/100 WBC (Bld) 0.0 % Critically low 0.2-2.0 [facility] Comment on above: Performed By: #### C BC #### [facility] [address] [place] [address] Dr. Johnna Dixon EO # 0.0 103/ul Normal 0.0-0.7 [facility] Comment on above: Performed By: #### C BC #### [facility] [address] [place] [address] Dr. Johnna Dixon Eosinophils/100 WBC (Bld) 0.0 % Critically low 0.9-7.0 [facility] Comment on above: Performed By: #### C BC #### [facility] [address] [place] [address] Dr. Johnna Dixon Erythrocyte distribution width (RBC) [Ratio] 13.9 % Normal 11.0-15.0 [facility] Comment on above: Performed By: #### C BC #### [facility] [address] [place] [address] Dr. Johnna Dixon Hematocrit (Bld) [Volume fraction] 33.6 % Critically low 42.0-54.0 [facility] Comment on above: Performed By: #### C BC #### [facility] [address] [place] [address] Dr. Johnna Dixon Hemoglobin (Bld) [Mass/Vol] 11.1 g/dL Critically low 14.0-18.0 [facility] Comment on above: Performed By: #### C BC #### [facility] [address] [place] [address] Dr. Johnna Dixon IG # 0.03 10e3/ul Normal 0.00-0.03 [facility] Comment on above: Performed By: #### C BC #### [facility] [address] [place] [address] Dr. Johnna Dixon IG % 0.5 % Normal 0.0-0.5 [facility] Comment on above: Performed By: #### C BC #### [facility] [address] [place] [address] Dr. Johnna Dixon LYMPH # 0.7 103/ul Critically low 1.2-3.8 [facility] Comment on above: Performed By: #### C BC #### [facility] [address] [place] [address] Dr. Johnna Dixon Lymphocytes/100 WBC (Bld) 11.5 % Critically low 20.5-60.0 [facility] Comment on above: Performed By: #### C BC #### [facility] [address] [place] [address] Dr. Johnna Dixon MANUAL DIFF REQ NO Normal [facility] Comment on above: Performed By: #### C BC #### [facility] [address] [place] [address] Dr. Johnna Dixon MCH (RBC) [Entitic mass] 31.0 pg Normal 25.9-34.0 [facility] Comment on above: Performed By: #### C BC #### [facility] [address] [place] [address] Dr. Johnna Dixon MCHC (RBC) [Mass/Vol] 33.0 g/dL Normal 29.9-35.2 [facility] Comment on above: Performed By: #### C BC #### [facility] [address] [place] [address] Dr. Johnna Dixon MCV (RBC) [Entitic vol] 93.9 fL Normal 80.0-94.0 [facility] Comment on above: Performed By: #### C BC #### [facility] [address] [place] [address] Dr. Johnna Dixon MONO # 0.3 103/ul Normal 0.3-0.8 [facility] Comment on above: Performed By: #### C BC #### [facility] [address] [place] [address] Dr. Johnna Dixon Monocytes/100 WBC (Bld) 4.5 % Normal 1.7-12.0 [facility] Comment on above: Performed By: #### C BC #### [facility] [address] [place] [address] Dr. Johnna Dixon NEUT # 5.0 103/ul Normal 1.4-6.5 [facility] Comment on above: Performed By: #### C BC #### [facility] [address] [place] [address] Dr. Johnna Dixon Neutrophils/100 WBC (Bld) 83.5 % Critically high 43.0-75.0 [facility] Comment on above: Performed By: #### C BC #### [facility] [address] [place] [address] Dr. Johnna Dixon Platelet mean volume (Bld) [Entitic vol] 10.3 fL Normal 9.5-13.5 [facility] Comment on above: Performed By: #### C BC #### [facility] [address] [place] [address] Dr. Johnna Dixon PLT 184 103/ul Normal 150-450 [facility] Comment on above: Performed By: #### C BC #### [facility] [address] [place] [address] Dr. Johnna Dixon RBC 3.58 106/ul Critically low 4.70-6.10 [facility] Comment on above: Performed By: #### C BC #### [facility] [address] [place] [address] Dr. Johnna Dixon WBC 6.0 103/ul Normal 4.0-11.0 [facility] Comment on above: Performed By: #### C BC #### [facility] [address] [place] [address] Dr. Johnna Dixon PROF 14(COMP METB)on 023 Albumin [Mass/Vol] 2.7 g/dL Critically low 3.4-5.0 [facility] Comment on above: Performed By: #### C VDTBH #### [facility] [address] [place] [address] Dr. Johnna Dixon Albumin/Globulin [Mass ratio] 0.9 {ratio} Normal [facility] Comment on above: Performed By: #### C VDTBH #### [facility] [address] [place] [address] Dr. Johnna Dixon ALP [Catalytic activity/Vol] 32 U/L Critically low 46-116 [facility] Comment on above: Performed By: #### C VDTBH #### [facility] [address] [place] [address] Dr. Johnna Dixon ALT [Catalytic activity/Vol] 19 U/L Normal 16-63 [facility] Comment on above: Performed By: #### C VDTBH #### [facility] [address] [place] [address] Dr. Johnna Dixon Anion gap [Moles/Vol] 14.0 mmol/L Normal [facility] Comment on above: Performed By: #### C VDTBH #### [facility] [address] [place] [address] Dr. Johnna Dixon AST [Catalytic activity/Vol] 12 U/L Critically low 15-37 [facility] Comment on above: Performed By: #### C VDTBH #### [facility] [address] [place] [address] Dr. Johnna Dixon Bilirubin [Mass/Vol] 0.6 mg/dL Normal 0.2-1.0 [facility] Comment on above: Performed By: #### C VDTBH #### [facility] [address] [place] [address] Dr. Johnna Dixon Calcium [Mass/Vol] 8.3 mg/dL Critically low 8.5-10.1 [facility] Comment on above: Performed By: #### C VDTBH #### [facility] [address] [place] [address] Dr. Johnna Dixon Chloride [Moles/Vol] 107 mmol/L Normal 98-107 [facility] Comment on above: Performed By: #### C VDTBH #### [facility] [address] [place] [address] Dr. Johnna Dixon CO2 [Moles/Vol] 24.9 mmol/L Normal 21.0-32.0 [facility] Comment on above: Performed By: #### C VDTBH #### [facility] [address] [place] [address] Dr. Johnna Dixon Creatinine [Mass/Vol] 1.20 mg/dL Normal 0.70-1.30 [facility] Comment on above: Performed By: #### C VDTBH #### [facility] [address] [place] [address] Dr. Johnna Dixon EGFR-AF CANADIAN >60 Normal >=60 [facility] Comment on above: Performed By: #### C VDTBH #### [facility] [address] [place] [address] Dr. Johnna Dixon EGFR-NON AF CANADIAN 60 mL/min/1.73m2 Normal >=60 [facility] Comment on above: Performed By: #### C VDTBH #### [facility] [address] [place] [address] Dr. Johnna Dixon Globulin (S) [Mass/Vol] 2.9 g/dL Normal [facility] Comment on above: Performed By: #### C VDTBH #### [facility] [address] [place] [address] Dr. Johnna Dixon Glucose [Mass/Vol] 153 mg/dL Critically high 74-106 [facility] Comment on above: Performed By: #### C VDTBH #### [facility] [address] [place] [address] Dr. Johnna Dixon Potassium [Moles/Vol] 3.9 mmol/L Normal 3.5-5.1 [facility] Comment on above: Performed By: #### C VDTBH #### [facility] [address] [place] [address] Dr. Johnna Dixon Protein [Mass/Vol] 5.6 g/dL Critically low 6.4-8.2 [facility] Comment on above: Performed By: #### C VDTBH #### [facility] [address] [place] [address] Dr. Johnna Dixon Sodium [Moles/Vol] 142 mmol/L Normal 136-145 [facility] Comment on above: Performed By: #### C VDTBH #### [facility] [address] [place] [address] Dr. Johnna Dixon Urea nitrogen [Mass/Vol] 14.0 mg/dL Normal 7.0-18.0 [facility] Comment on above: Performed By: #### C VDTBH #### [facility] [address] [place] [address] Dr. Johnna Dixon Urea nitrogen/Creatinine [Mass ratio] 11.7 mg/mg Normal [facility] Comment on above: Performed By: #### C VDTBH #### [facility] [address] [place] [address] Dr. Johnna Dixon CBC AUTO DIFFon 10-05-2022 BASO # 0.0 103/ul Normal 0.0-0.1 [facility] Comment on above: Performed By: #### S PUTGS #### [facility] [address] [place] [address] Dr. Johnna Dixon Basophils/100 WBC (Bld) 0.2 % Normal 0.2-2.0 [facility] Comment on above: Performed By: #### S PUTGS #### [facility] [address] [place] [address] Dr. Johnna Dixon EO # 0.0 103/ul Normal 0.0-0.7 [facility] Comment on above: Performed By: #### S PUTGS #### [facility] [address] [place] [address] Dr. Johnna Dixon Eosinophils/100 WBC (Bld) 0.2 % Critically low 0.9-7.0 [facility] Comment on above: Performed By: #### S PUTGS #### [facility] [address] [place] [address] Dr. Johnna Dixon Erythrocyte distribution width (RBC) [Ratio] 14.1 % Normal 11.0-15.0 [facility] Comment on above: Performed By: #### S PUTGS #### [facility] [address] [place] [address] Dr. Johnna Dixon Hematocrit (Bld) [Volume fraction] 39.9 % Critically low 42.0-54.0 [facility] Comment on above: Performed By: #### S PUTGS #### [facility] [address] [place] [address] Dr. Johnna Dixon Hemoglobin (Bld) [Mass/Vol] 12.8 g/dL Critically low 14.0-18.0 [facility] Comment on above: Performed By: #### S PUTGS #### [facility] [address] [place] [address] Dr. Johnna Dixon IG # 0.01 10e3/ul Normal 0.00-0.03 [facility] Comment on above: Performed By: #### S PUTGS #### [facility] [address] [place] [address] Dr. Johnna Dixon IG % 0.2 % Normal 0.0-0.5 [facility] Comment on above: Performed By: #### S PUTGS #### [facility] [address] [place] [address] Dr. Johnna Dixon LYMPH # 0.7 103/ul Critically low 1.2-3.8 [facility] Comment on above: Performed By: #### S PUTGS #### [facility] [address] [place] [address] Dr. Johnna Dixon Lymphocytes/100 WBC (Bld) 14.3 % Critically low 20.5-60.0 [facility] Comment on above: Performed By: #### S PUTGS #### [facility] [address] [place] [address] Dr. Johnna Dixon MANUAL DIFF REQ NO Normal [facility] Comment on above: Performed By: #### S PUTGS #### [facility] [address] [place] [address] Dr. Johnna Dixon MCH (RBC) [Entitic mass] 30.7 pg Normal 25.9-34.0 [facility] Comment on above: Performed By: #### S PUTGS #### [facility] [address] [place] [address] Dr. Johnna Dixon MCHC (RBC) [Mass/Vol] 32.1 g/dL Normal 29.9-35.2 [facility] Comment on above: Performed By: #### S PUTGS #### [facility] [address] [place] [address] Dr. Johnna Dixon MCV (RBC) [Entitic vol] 95.7 fL Critically high 80.0-94.0 [facility] Comment on above: Performed By: #### S PUTGS #### [facility] [address] [place] [address] Dr. Johnna Dixon MONO # 0.6 103/ul Normal 0.3-0.8 [facility] Comment on above: Performed By: #### S PUTGS #### [facility] [address] [place] [address] Dr. Johnna Dixon Monocytes/100 WBC (Bld) 12.5 % Critically high 1.7-12.0 [facility] Comment on above: Performed By: #### S PUTGS #### [facility] [address] [place] [address] Dr. Johnna Dixon NEUT # 3.6 103/ul Normal 1.4-6.5 [facility] Comment on above: Performed By: #### S PUTGS #### [facility] [address] [place] [address] Dr. Johnna Dixon Neutrophils/100 WBC (Bld) 72.6 % Normal 43.0-75.0 [facility] Comment on above: Performed By: #### S PUTGS #### [facility] [address] [place] [address] Dr. Johnna Dixon Platelet mean volume (Bld) [Entitic vol] 9.5 fL Normal 9.5-13.5 [facility] Comment on above: Performed By: #### S PUTGS #### [facility] [address] [place] [address] Dr. Johnna Dixon PLT 213 103/ul Normal 150-450 [facility] Comment on above: Performed By: #### S PUTGS #### [facility] [address] [place] [address] Dr. Johnna Dioxn RBC 4.17 106/ul Critically low 4.70-6.10 [facility] Comment on above: Performed By: #### S PUTGS #### [facility] [address] [place] [address] Dr. Johnna Dixon WBC 5.0 103/ul Normal 4.0-11.0 [facility] Comment on above: Performed By: #### S PUTGS #### [facility] [address] [place] [address] Dr. Johnna Dixon CULTURE BLOODon 10-05-2022 Microscopic examination of blood, culture Culture Observations: NO GROWTH AT 5 DAYS. Normal [facility] Comment on above: Performed By: #### B LDCX2 #### [facility] [address] [place] [address] Dr. Johnna Dixon Microscopic examination of blood, culture Culture Observations: NO GROWTH AT 5 DAYS. Normal [facility] Comment on above: Performed By: #### S PUTGS #### [facility] [address] [place] [address] Dr. Johnna Dixon CULTURE SPUTUMon 10-05-2022 CULTURE SPUTUM Culture Observations: NORMAL RESPIRATORY JONATAN. Normal [facility] Comment on above: Performed By: #### S PUTGS #### [facility] [address] [place] [address] Dr. Johnna Dixon Covid-19 PCR (CVDTB)on 09-19 SARS-CoV-2 (COVID-19) RNA REX+probe Ql (Unsp spec) Not detected Normal NOT DETECTED [facility] Comment on above: Result Comment: This test is not yet approved or cleared by the [place] FDA. When there are no FDA-approved or cleared tests available, and other criteria are met, FDA can make tests available under an emergency access mechanism called an Emergency Use Authorization (EUA). The EUA for this test is supported by the Career Development Coordinator/Teacher of Health and Human Service's (HHS's) declaration [...] SARS-CoV-2. Performed By: #### C VDTB #### [facility] [address] [place] [address] Dr. Johnna Dixon LACTATE/LACTIC ACIDon 2022 Lactate [Moles/Vol] 1.2 mmol/L Normal 0.4-2.0 [facility] Comment on above: Performed By: #### L ACT #### [facility] [address] [place] [address] Dr. Jonhna Dixon Lactate [Moles/Vol] 2.4 mmol/L Critically high 0.4-2.0 [facility] Comment on above: Performed By: #### L ACT #### [facility] [address] [place] [address] Dr. Johnna Dixon PROF CHEM 8 (BAS METB)on Anion gap [Moles/Vol] 12.6 mmol/L Normal [facility] Comment on above: Performed By: #### B MP #### [facility] [address] [place] [address] Dr. Johnna Dixon Calcium [Mass/Vol] 8.9 mg/dL Normal 8.5-10.1 [facility] Comment on above: Performed By: #### B MP #### [facility] [address] [place] [address] Dr. Johnna Dixon Chloride [Moles/Vol] 106 mmol/L Normal 98-107 [facility] Comment on above: Performed By: #### B MP #### [facility] [address] [place] [address] Dr. Johnna Dixon CO2 [Moles/Vol] 25.8 mmol/L Normal 21.0-32.0 [facility] Comment on above: Performed By: #### B MP #### [facility] [address] [place] [address] Dr. Johnna Dixon Creatinine [Mass/Vol] 1.41 mg/dL Critically high 0.70-1.30 [facility] Comment on above: Performed By: #### B MP #### [facility] [address] [address] [address] Johnna Dixon EGFR-AF CANADIAN >60 Normal >=60 [facility] Comment on above: Performed By: #### B MP #### [facility] [address] [address] [address] Johnna Dixon EGFR-NON AF CANADIAN 50 mL/min/1.73m2 Critically low >=60 [facility] Comment on above: Performed By: #### B MP #### [facility] [address] [address] [address] Johnna Dixon Glucose [Mass/Vol] 111 mg/dL Critically high 74-106 [facility] Comment on above: Performed By: #### B MP #### [facility] [address] [address] [address] Johnna Dixon Potassium [Moles/Vol] 3.4 mmol/L Critically low 3.5-5.1 [facility] Comment on above: Performed By: #### B MP #### [facility] [address] [address] [address] Johnna Dixon Sodium [Moles/Vol] 141 mmol/L Normal 136-145 [facility] Comment on above: Performed By: #### B MP #### [facility] [address] [address] [address] Johnna Dixon Urea nitrogen [Mass/Vol] 17.0 mg/dL Normal 7.0-18.0 [facility] Comment on above: Performed By: #### B MP #### [facility] [address] [address] [address] Johnna Dixon Urea nitrogen/Creatinine [Mass ratio] 12.1 mg/mg Normal [facility] Comment on above: Performed By: #### B MP #### [facility] [address] [address] [address] Johnna Dixon SPUTUM GRAM STAINon 10-06-19 COMMENTS Normal [facility] Comment on above: Performed By: #### S PUTGS #### [facility] [address] [address] [address] Johnna Dixon DIPHTHEROIDS Normal [facility] Comment on above: Performed By: #### S PUTGS #### [facility] [address] [place] [address] Dr. Johnna Dixon EPITHELIALS <25 Normal [facility] Comment on above: Performed By: #### S PUTGS #### [facility] [address] [place] [address] Dr. Johnna Dixon FUNGAL ELEMENTS Normal [facility] Comment on above: Performed By: #### S PUTGS #### [facility] [address] [place] [address] Dr. Johnna Dixon GRAM NEG BACILLI FEW [facility] Comment on above: Performed By: #### S PUTGS #### [facility] [address] [place] [address] Dr. Johnna MILLS NEG DIPPLOCOCCI Normal [facility] Comment on above: Performed By: #### S PUTGS #### [facility] [address] [place] [address] Dr. Johnna Dixon GRAM POS BACILLI [facility] Comment on above: Performed By: #### S PUTGS #### [facility] [address] [place] [address] Dr. Johnna Dixon GRAM POSITIVE COCCI FEW Normal [facility] Comment on above: Performed By: #### S PUTGS #### [facility] [address] [place] [address] Dr. Johnna Dixon WBC (Bld) [#/Vol] 10*3/uL [facility] Comment on above: Performed By: #### S PUTGS #### [facility] [address] [place] [address] Dr. Johnna Dixon SYMPTOMATIC COVID-19 ANTIGEN on 10-05-2022 EUA Statement SEE BELOW [facility] Comment on [...] sooner. Performed By: #### C VDAGS #### [facility] [address] [place] [address] Dr. Johnna Dixon SARS-CoV-2 (COVID-19) RNA REX+probe Ql (Unsp spec) Negative Normal NEGATIVE [facility] Comment on above: Performed By: #### C VDAGS #### [facility] [address] [place] [address] Dr. Johnna Dixon XR CHEST 1 Von [...] SOCORRO SERRANO Date: 2022-10-05 11:44 Normal [facility] US SINGLE QUAD RT UPPERon US SINGLE [...] SOCORRO HUFFMAN Date: 2022-09-24 09:46 Normal [facility] AMYLASEon 09-21-2022 Amylase [Catalytic activity/Vol] 78 U/L Normal 25-115 [facility] Comment on above: Performed By: #### C VDTBH #### [facility] [address] [place] [address] Dr. Johnna Dixon CBC AUTO DIFFon 09-21-2022 BASO # 0.0 103/ul Normal 0.0-0.1 [facility] Comment on above: Performed By: #### C VDTBH #### [facility] [address] [place] [address] Dr. Johnna Dixon Basophils/100 WBC (Bld) 0.5 % Normal 0.2-2.0 [facility] Comment on above: Performed By: #### C VDTBH #### [facility] [address] [place] [address] Dr. Johnna Dixon EO # 0.1 103/ul Normal 0.0-0.7 [facility] Comment on above: Performed By: #### C VDTBH #### [facility] [address] [place] [address] Dr. Johnna Dixon Eosinophils/100 WBC (Bld) 1.9 % Normal 0.9-7.0 [facility] Comment on above: Performed By: #### C VDTBH #### [facility] [address] [place] [address] Dr. Johnna Dixon Erythrocyte distribution width (RBC) [Ratio] 14.5 % Normal 11.0-15.0 [facility] Comment on above: Performed By: #### C VDTBH #### [facility] [address] [place] [address] Dr. Johnna Dixon Hematocrit (Bld) [Volume fraction] 39.1 % Critically low 42.0-54.0 [facility] Comment on above: Performed By: #### C VDTBH #### [facility] [address] [place] [address] Dr. Johnna Dixon Hemoglobin (Bld) [Mass/Vol] 12.8 g/dL Critically low 14.0-18.0 [facility] Comment on above: Performed By: #### C VDTBH #### [facility] [address] [place] [address] Dr. Johnna Dixon IG # 0.05 10e3/ul Critically high 0.00-0.03 [facility] Comment on above: Performed By: #### C VDTBH #### [facility] [address] [place] [address] Dr. Johnna Dixon IG % 0.7 % Critically high 0.0-0.5 [facility] Comment on above: Performed By: #### C VDTBH #### [facility] [address] [place] [address] Dr. Johnna Dixon LYMPH # 2.0 103/ul Normal 1.2-3.8 [facility] Comment on above: Performed By: #### C VDTBH #### [facility] [address] [place] [address] Dr. Johnna Dixon Lymphocytes/100 WBC (Bld) 27.4 % Normal 20.5-60.0 [facility] Comment on above: Performed By: #### C VDTBH #### [facility] [address] [place] [address] Dr. Johnna Dixon MANUAL DIFF REQ NO Normal [facility] Comment on above: Performed By: #### C VDTBH #### [facility] [address] [place] [address] Dr. Johnna Dixon MCH (RBC) [Entitic mass] 31.3 pg Normal 25.9-34.0 [facility] Comment on above: Performed By: #### C VDTBH #### [facility] [address] [place] [address] Dr. Johnna Dixon MCHC (RBC) [Mass/Vol] 32.7 g/dL Normal 29.9-35.2 [facility] Comment on above: Performed By: #### C VDTBH #### [facility] [address] [place] [address] Dr. Johnna Dixon MCV (RBC) [Entitic vol] 95.6 fL Critically high 80.0-94.0 [facility] Comment on above: Performed By: #### C VDTBH #### [facility] [address] [place] [address] Dr. Johnna Dixon MONO # 0.5 103/ul Normal 0.3-0.8 [facility] Comment on above: Performed By: #### C VDTBH #### [facility] [address] [place] [address] Dr. Johnna Dixon Monocytes/100 WBC (Bld) 6.9 % Normal 1.7-12.0 [facility] Comment on above: Performed By: #### C VDTBH #### [facility] [address] [place] [address] Dr. Johnna Dixon NEUT # 4.7 103/ul Normal 1.4-6.5 [facility] Comment on above: Performed By: #### C VDTBH #### [facility] [address] [place] [address] Dr. Johnna Dixon Neutrophils/100 WBC (Bld) 62.6 % Normal 43.0-75.0 [facility] Comment on above: Performed By: #### C VDTBH #### [facility] [address] [place] [address] Dr. Johnna Dixon Platelet mean volume (Bld) [Entitic vol] 9.3 fL Critically low 9.5-13.5 [facility] Comment on above: Performed By: #### C VDTBH #### [facility] [address] [place] [address] Dr. Johnna Dixon PLT 235 103/ul Normal 150-450 [facility] Comment on above: Performed By: #### C VDTBH #### [facility] [address] [place] [address] Dr. Johnna Dixon RBC 4.09 106/ul Critically low 4.70-6.10 [facility] Comment on above: Performed By: #### C VDTBH #### [facility] [address] [place] [address] Dr. Johnna Dixon WBC 7.4 103/ul Normal 4.0-11.0 [facility] Comment on above: Performed By: #### C VDTBH #### [facility] [address] [place] [address] Dr. Johnna Dixon LIPASEon 09-21-2022 Lipase [Catalytic activity/Vol] 114.0 U/L Normal 73.0-393.0 [facility] Comment on above: Performed By: #### C VDAGS #### [facility] [address] [place] [address] Dr. Johnna Dixon LIVER PROFILEon 09-21-2022 Albumin [Mass/Vol] 3.9 g/dL Normal 3.4-5.0 [facility] Comment on above: Performed By: #### C VDTBH #### [facility] [address] [place] [address] Dr. Johnna Dixon Albumin/Globulin [Mass ratio] 1.6 {ratio} Normal [facility] Comment on above: Performed By: #### C VDTBH #### [facility] [address] [place] [address] Dr. Johnna Dixon ALP [Catalytic activity/Vol] 59 U/L Normal 46-116 [facility] Comment on above: Performed By: #### C VDTBH #### [facility] [address] [place] [address] Dr. Johnna Dixon ALT [Catalytic activity/Vol] 23 U/L Normal 16-63 [facility] Comment on above: Performed By: #### C VDTBH #### [facility] [address] [place] [address] Dr. Johnna Dixon AST [Catalytic activity/Vol] 8 U/L Critically low 15-37 [facility] Comment on above: Performed By: #### C VDTBH #### [facility] [address] [place] [address] Dr. Johnna STACKI, CONJUGATED 0.1 mg/dL Normal 0.0-0.2 [facility] Comment on above: Performed By: #### C VDTBH #### [facility] [address] [place] [address] Dr. Johnna Dixon Bilirubin [Mass/Vol] 0.3 mg/dL Normal 0.2-1.0 [facility] Comment on above: Performed By: #### C VDTBH #### [facility] [address] [place] [address] Dr. Johnna Dixon Globulin (S) [Mass/Vol] 2.5 g/dL Normal [facility] Comment on above: Performed By: #### C VDTBH #### [facility] [address] [place] [address] Dr. Johnna Dixon Protein [Mass/Vol] 6.4 g/dL Normal 6.4-8.2 [facility] Comment on above: Performed By: #### C VDTBH #### [facility] [address] [place] [address] Dr. Johnna Dixon PROF CHEM 8 (BAS METB)on Anion gap [Moles/Vol] 13.4 mmol/L Normal [facility] Comment on above: Performed By: #### C VDTBH #### [facility] [address] [place] [address] Dr. Johnna Dixon Calcium [Mass/Vol] 8.9 mg/dL Normal 8.5-10.1 [facility] Comment on above: Performed By: #### C VDTBH #### [facility] [address] [place] [address] Dr. Johnna Dixon Chloride [Moles/Vol] 106 mmol/L Normal 98-107 [facility] Comment on above: Performed By: #### C VDTBH #### [facility] [address] [place] [address] Dr. Johnna Dixon CO2 [Moles/Vol] 25.6 mmol/L Normal 21.0-32.0 [facility] Comment on above: Performed By: #### C VDTBH #### [facility] [address] [address] [address] Johnna Dixon Creatinine [Mass/Vol] 1.21 mg/dL Normal 0.70-1.30 [facility] Comment on above: Performed By: #### C VDTBH #### [facility] [address] [address] [address] Johnna Dixon EGFR-AF CANADIAN >60 Normal >=60 [facility] Comment on above: Performed By: #### C VDTBH #### [facility] [address] [address] [address] Johnna Dixon EGFR-NON AF CANADIAN 59 mL/min/1.73m2 Critically low >=60 [facility] Comment on above: Performed By: #### C VDTBH #### [facility] [address] [address] [address] Johnna Dixon Glucose [Mass/Vol] 115 mg/dL Critically high 74-106 [facility] Comment on above: Performed By: #### C VDTBH #### [facility] [address] [place] [address] Dr. Johnna Dixon Potassium [Moles/Vol] 4.0 mmol/L Normal 3.5-5.1 [facility] Comment on above: Performed By: #### C VDTBH #### [facility] [address] [place] [address] Dr. Johnna Dixon Sodium [Moles/Vol] 141 mmol/L Normal 136-145 [facility] Comment on above: Performed By: #### C VDTBH #### [facility] [address] [address] [address] Johnna Dixon Urea nitrogen [Mass/Vol] 19.0 mg/dL Critically high 7.0-18.0 [facility] Comment on above: Performed By: #### C VDTBH #### [facility] [address] [address] [address] Johnna Dixon Urea nitrogen/Creatinine [Mass ratio] 15.7 mg/mg Normal [facility] Comment on above: Performed By: #### C VDTBH #### [facility] [address] [place] [address] Dr. Johnna Dixon CREATININEon 08-04-2022 Creatinine [Mass/Vol] 1.31 mg/dL Critically high 0.70-1.30 [facility] Comment on above: Performed By: #### C JANIS #### [facility] [facility] [address] [place] [address] Dr. Johnna Dixon EGFR-AF CANADIAN >60 Normal >=60 [facility] Comment on above: Performed By: #### C JANIS #### [facility] [address] [place] [address] Dr. Johnna Dixon EGFR-NON AF CANADIAN 54 mL/min/1.73m2 Critically low >=60 [facility] Comment on above: Performed By: #### C JANIS #### [facility] [address] [place] [address] Dr. Johnna Dixon CTA NECK WO W [...] ALLI CORTES Date: 2022-08-04 14:04 Normal [facility] US CAROTID ART BILon 023 US CAROTID [...] by: ALLI CORTES Date: 2022-07-28 12:00 Normal [facility] XR KNEE RT 4V or >on [...] DEBORAH ZARAGOZA Date: 2022-06-30 17:38 Normal [facility] XR RIBS RT PA Fab 2 [...] SOCORRO SERRANO Date: 2022-05-25 14:51 Normal [facility] XR RIBS RT PA Fab 2 [...] atelectasis and small pleural effusion Normal [facility] CT CHEST WO CONon 04-18-2022 CT [...] SOCORRO BANSAL Date: 2022-04-18 16:17 Normal [facility] CULTURE URINEon 03-12-2022 CULTURE URINE Culture Observations: NO GROWTH. Normal [facility] Comment on above: Performed By: #### S PUTGS #### [facility] [address] [address] [address] Johnna Dixon COVID-19 Positive/NegativeOr dered By: Lionel Whitney on 02-13-2022 SARS-CoV-2 (COVID-19) N gene REX+probe Ql (Resp) Negative Negative [facility] Comment on above: Testing for SARS-CoV -2 by RT-PCR This test was developed and its performance characteristics determined by [employer] and validated at the [facility]. This test has not been FDA [...] poor plasma by coagulation aOrdered By: Lionel Whitney on 02-06-2022 aPTT Coag (PPP) [Time] 34.8 s 25.1-36.5 [facility] Basophils Auto (Bld) [#/Vol] Ordered By: Lionel Whitney on 02-06-2022 Basophils (Bld) [#/Vol] 0.0 10*3/uL 0.0-0.2 [facility] Basophils/100 WBC Auto (Bld) Ordered By: Lionel Whitney on 02-06-2022 Basophils/100 WBC (Bld) 0.8 % . [facility] Blood hemoglobin measurement (mass/volume)Ordered By: Lionel Whitney on 02-06-2022 Hemoglobin (Bld) [Mass/Vol] 13.2 g/dL 13.0-17.0 [facility] Blood leukocytes automated c ount (number/volume)Ordered By: Lionel Whitney on 02-06-2022 WBC (Bld) [#/Vol] 5.7 10*3/uL 4.5-11.0 [facility] Creatinine and Glomerular fi ltration rate.predicted panel (S/P/Bld)Ordered By: Lionel Whitney on 02-06-2022 Creatinine [Mass/Vol] 1.21 mg/dL 0.64-1.27 [facility] Eosinophils Auto (Bld) [#/Vo l]Ordered By: Lionel Whitney on 02-06-2022 Eosinophils (Bld) [#/Vol] 0.1 10*3/uL 0.0-0.45 [facility] Eosinophils/100 WBC Auto (Bl d)Ordered By: Lionel Whitney on 02-06-2022 Eosinophils/100 WBC (Bld) 1.7 % . [facility] Erythrocyte distribution wid th Auto (RBC) [Ratio]Ordered By: Lionel Whitney on 02-06-2022 Erythrocyte distribution width (RBC) [Ratio] 14.2 % 12.0-14.8 [facility] Estimated glomerular filtrat ion rate (GFR) non- AmericanOrdered By: Lionel Whitney on 02-06-2022 GFR/1.73 sq M.predicted among non-blacks MDRD (S/P/Bld) [Vol rate/Area] 59 mL/Min [facility] Hematocrit Auto (Bld) [Volum e fraction]Ordered By: Lionel Whitney on 02-06-2022 Hematocrit (Bld) [Volume fraction] 40.8 % 38.8-50.0 [facility] Laboratory - CoagulationOrde red By: Lionel Whitney on 02-06-2022 PT Coag (PPP) [Time] 11.0 s 9.0-12.9 [facility] Laboratory - Hematology and Cell countsOrdered By: Lionel Whitney on 02-06-2022 Nucleated RBC/100 WBC (Bld) [Ratio] 0.1 % 0-0.5 [facility] Lymphocytes Auto (Bld) [#/Vo l]Ordered By: Lionel Whitney on 02-06-2022 Lymphocytes (Bld) [#/Vol] 1.6 10*3/uL 1.00-4.8 [facility] Lymphocytes/100 WBC Auto (Bl d)Ordered By: Lionel Whitney on 02-06-2022 Lymphocytes/100 WBC (Bld) 27.4 % . [facility] MCH Auto (RBC) [Entitic mass ]Ordered By: Lionel Whitney on 02-06-2022 MCH (RBC) [Entitic mass] 29.7 pg 27.5-35.2 [facility] MCHC Auto (RBC) [Mass/Vol]Or dered By: Lionel Whitney on 02-06-2022 MCHC (RBC) [Mass/Vol] 32.4 g/dL 32.5-35.6 [facility] MCV Auto (RBC) [Entitic vol] Ordered By: Lionel Whitney on 02-06-2022 MCV (RBC) [Entitic vol] 91.6 fL 83.5-101 [facility] Monocytes Auto (Bld) [#/Vol] Ordered By: Lionel Whitney on 02-06-2022 Monocytes (Bld) [#/Vol] 0.5 10*3/uL 0.0-0.8 [facility] Monocytes/100 WBC Auto (Bld) Ordered By: Lionel Whitney on 02-06-2022 Monocytes/100 WBC (Bld) 8.7 % . [facility] Neutrophils Auto (Bld) [#/Vo l]Ordered By: Lionel Whitney on 02-06-2022 Neutrophils (Bld) [#/Vol] 3.5 10*3/uL 1.8-7.7 [facility] Neutrophils/100 WBC Auto (Bl d)Ordered By: Lionel Whitney on 02-06-2022 Neutrophils/100 WBC (Bld) 61.4 % . [facility] No Panel InformationOrdered By: Lionel Whitney on 02-06-2022 Estimated GFR () > 60 mL/Min [facility] Comment on above: GFR estimated refere nce range: According to KDOQI guidelines, <60 ml/min/1.73m2 is sufficient to diagnose a patient with chronic kidney disease. Pharmacy Creatinine Clearance (Chem N/A [facility] Platelet mean volume Auto (B ld) [Entitic vol]Ordered By: Lionel Whitney on 02-06-2022 Platelet mean volume (Bld) [Entitic vol] 8.4 fL 6.6-10.1 [facility] Platelet poor plasma interna tional normalized ratio (INR) by coagulation assay (relatOrdered By: Lionel Whitney on 02-06-2022 INR Coag (PPP) [Relative time] 1.0 {INR} [facility] Comment on above: INR Therapeutic Rang [...] Platelets Auto (Bld) [#/Vol] Ordered By: Lionel Whitney on 02-06-2022 Platelets (Bld) [#/Vol] 248 10*3/uL 150-450 [facility] RBC Auto (Bld) [#/Vol]Ordere d By: Lionel Whitney on 02-06-2022 RBC (Bld) [#/Vol] 4.45 10*6/uL 3.90-5.60 [facility] Serum or plasma calcium eliezer urement (mass/volume)Ordered By: Lionel Whitney on 02-06-2022 Calcium [Mass/Vol] 9.7 mg/dL 8.2-10.2 [facility] Serum or plasma chloride sammy surement (moles/volume)Ordered By: Lionel Whitney on 02-06-2022 Chloride [Moles/Vol] 99 mmol/L 95-114 [facility] Serum or plasma glucose eliezer urement (mass/volume)Ordered By: Lionel Whitney on 02-06-2022 Glucose [Mass/Vol] 99 mg/dL 70-100 [facility] Comment on above: ADA recommended refe rence range Random Glucose Reference Range is dependent on time and content of last meal. Glucose of more than 200 mg/dL in a nonstressed, ambulatory subject supports the diagnosis of Diabetes Mellitus. Serum or plasma potassium me asurement (moles/volume)Ordered By: Lionel Whitney on 02-06-2022 Potassium [Moles/Vol] 4.4 mmol/L 3.5-5.1 [facility] Serum or plasma sodium measu rement (moles/volume)Ordered By: Lionel Whitney on 02-06-2022 Sodium [Moles/Vol] 135 mmol/L 136-146 [facility] Serum or plasma total carbon dioxide measurement (moles/volume)Ordered By: iLonel Whitney on 02-06-2022 CO2 [Moles/Vol] 26.2 mmol/L 22.0-30.0 [facility] Serum or plasma urea nitroge n measurement (mass/volume)Ordered By: Lionel Whitney on 02-06-2022 Urea nitrogen [Mass/Vol] 20 mg/dL 9-23 [facility] COVID-19 Positive/NegativeOr dered By: Lionel Whitney on 10-27-2021 SARS-CoV-2 (COVID-19) N gene REX+probe Ql (Resp) Negative Negative [facility] Comment on above: Testing for SARS-CoV -2 by RT-PCR This test was developed and its performance characteristics determined by [employer] and validated at the [facility]. This test has not been FDA [...] poor plasma by coagulation aOrdered By: Lionel Whitney on 10-17-2021 aPTT Coag (PPP) [Time] 36.2 s 25.1-36.5 [facility] Basophils Auto (Bld) [#/Vol] Ordered By: Lionel Whitney on 10-17-2021 Basophils (Bld) [#/Vol] 0.0 10*3/uL 0.0-0.2 [facility] Basophils/100 WBC Auto (Bld) Ordered By: Lionel Whitney on 10-17-2021 Basophils/100 WBC (Bld) 0.6 % [facility] Blood hemoglobin measurement (mass/volume)Ordered By: Lionel Whitney on 10-17-2021 Hemoglobin (Bld) [Mass/Vol] 13.6 g/dL 13.0-17.0 [facility] Blood leukocytes automated c ount (number/volume)Ordered By: Lionel Whitney on 10-17-2021 WBC (Bld) [#/Vol] 5.9 10*3/uL 4.5-11.0 [facility] Creatinine and Glomerular fi ltration rate.predicted panel (S/P/Bld)Ordered By: Lionel Whitney on 10-17-2021 Creatinine [Mass/Vol] 0.96 mg/dL 0.64-1.27 [facility] Eosinophils Auto (Bld) [#/Vo l]Ordered By: Lionel Whitney on 10-17-2021 Eosinophils (Bld) [#/Vol] 0.1 10*3/uL 0.0-0.45 [facility] Eosinophils/100 WBC Auto (Bl d)Ordered By: Lionel Whitney on 10-17-2021 Eosinophils/100 WBC (Bld) 2.0 % [facility] Erythrocyte distribution wid th Auto (RBC) [Ratio]Ordered By: Lionel Whitney on 10-17-2021 Erythrocyte distribution width (RBC) [Ratio] 14.5 % 12.0-14.8 [facility] Estimated glomerular filtrat ion rate (GFR) non- AmericanOrdered By: Lionel Whitney on 10-17-2021 GFR/1.73 sq M.predicted among non-blacks MDRD (S/P/Bld) [Vol rate/Area] > 60 mL/Min [facility] Hematocrit Auto (Bld) [Volum e fraction]Ordered By: Lionel Whitney on 10-17-2021 Hematocrit (Bld) [Volume fraction] 41.5 % 38.8-50.0 [facility] - CoagulationOrde red By: Lionel Whitney on 10-17-2021 PT Coag (PPP) [Time] 11.0 s 9.0-12.9 [facility] - Hematology and Cell countsOrdered By: Lionel Whitney on 10-17-2021 Nucleated RBC/100 WBC (Bld) [Ratio] 0.0 % 0-0.5 [facility] Lymphocytes Auto (Bld) [#/Vo l]Ordered By: Lionel Whitney on 10-17-2021 Lymphocytes (Bld) [#/Vol] 1.6 10*3/uL 1.00-4.8 [facility] Lymphocytes/100 WBC Auto (Bl d)Ordered By: Lionel Whitney on 10-17-2021 Lymphocytes/100 WBC (Bld) 26.8 % [facility] MCH Auto (RBC) [Entitic mass ]Ordered By: Lionel Whitney on 10-17-2021 MCH (RBC) [Entitic mass] 29.3 pg 27.5-35.2 [facility] MCHC Auto (RBC) [Mass/Vol]Or dered By: Lionel Whitney on 10-17-2021 MCHC (RBC) [Mass/Vol] 32.7 g/dL 32.5-35.[address] [facility] MCV Auto (RBC) [Entitic vol] Ordered By: Lionel Whitney on 10-17-2021 MCV (RBC) [Entitic vol] 89.8 fL 83.5-101 [facility] Monocytes Auto (Bld) [#/Vol] Ordered By: Lionel Whitney on 10-17-2021 Monocytes (Bld) [#/Vol] 0.6 10*3/uL 0.0-0.8 [facility] Monocytes/100 WBC Auto (Bld) Ordered By: Lionel Whitney on 10-17-2021 Monocytes/100 WBC (Bld) 10.6 % [facility] Neutrophils Auto (Bld) [#/Vo l]Ordered By: Lionel Whitney on 10-17-2021 Neutrophils (Bld) [#/Vol] 3.5 10*3/uL 1.8-7.7 [facility] Neutrophils/100 WBC Auto (Bl d)Ordered By: Lionel Whitney on 10-17-2021 Neutrophils/100 WBC (Bld) 60.0 % [facility] No Panel InformationOrdered By: Lionel Whitney on 10-17-2021 Estimated GFR () > 60 mL/Min [facility] Comment on above: GFR estimated refere nce range: According to KDOQI guidelines, <60 ml/min/1.73m2 is sufficient to diagnose a patient with chronic kidney disease. Pharmacy Creatinine Clearance (Chem N/A [facility] Platelet mean volume Auto (B ld) [Entitic vol]Ordered By: Lionel Whitney on 10-17-2021 Platelet mean volume (Bld) [Entitic vol] 8.3 fL 6.6-10.1 [facility] Platelet poor plasma interna tional normalized ratio (INR) by coagulation assay (relatOrdered By: Lionel Whitney on 10-17-2021 INR Coag (PPP) [Relative time] 1.0 {INR} [facility] Comment on above: INR Therapeutic Rang [...] Platelets Auto (Bld) [#/Vol] Ordered By: Lionel Whitney on 10-17-2021 Platelets (Bld) [#/Vol] 249 10*3/uL 150-450 [facility] RBC Auto (Bld) [#/Vol]Ordere d By: Lionel Whitney on 10-17-2021 RBC (Bld) [#/Vol] 4.62 10*6/uL 3.90-5.60 [facility] Serum or plasma calcium eliezer urement (mass/volume)Ordered By: Lionel Whitney on 10-17-2021 Calcium [Mass/Vol] 9.7 mg/dL 8.2-10.2 [facility] Serum or plasma chloride sammy surement (moles/volume)Ordered By: Lionel Whitney on 10-17-2021 Chloride [Moles/Vol] 101 mmol/L 95-114 [facility] Serum or plasma glucose eliezer urement (mass/volume)Ordered By: Lionel Whitney on 10-17-2021 Glucose [Mass/Vol] 87 mg/dL 70-100 [facility] Comment on above: ADA recommended refe rence range Random Glucose Reference Range is dependent on time and content of last meal. Glucose of more than 200 mg/dL in a nonstressed, ambulatory subject supports the diagnosis of Diabetes Mellitus. Serum or plasma potassium me asurement (moles/volume)Ordered By: Lionel Whitney on 10-17-2021 Potassium [Moles/Vol] 4.4 mmol/L 3.5-5.1 [facility] Serum or plasma sodium measu rement (moles/volume)Ordered By: Lionel Whitney on 10-17-2021 Sodium [Moles/Vol] 136 mmol/L 136-146 [facility] Serum or plasma total carbon dioxide measurement (moles/volume)Ordered By: Lionel Whitney on 10-17-2021 CO2 [Moles/Vol] 25.6 mmol/L 22.0-30.0 [facility] Serum or plasma urea nitroge n measurement (mass/volume)Ordered By: Lionel Whitney on 10-17-2021 Urea nitrogen [Mass/Vol] 18 mg/dL 9-23 [facility] Vital Signs Date Time Vital Sign Value Performing Clinician Facility 10-11-2023 15:27-0400 Body height 182.88 cm MD Yolande Monterroso Work Phone: [facility] 10-11-2023 15:27-0400 Body mass index (BMI) [Ratio] 25 kg/m2 MD Yolande Monterroso Work Phone: [facility] 10-11-2023 15:27-0400 Body temperature 97.2 [degF] MD Yolande Monterroso Work Phone: [facility] 10-11-2023 15:27-0400 Body weight 83.91 kg MD Yolande Monterroso Work Phone: [facility] 10-11-2023 15:27-0400 Diastolic blood pressure 88 mm[Hg] MD Yolande Monterroso Work Phone: [facility] 10-11-2023 15:27-0400 Heart rate 79 /min MD Yolande Monterroso Work Phone: [facility] 10-11-2023 15:27-0400 Systolic blood pressure 146 mm[Hg] MD Yolande Monterroso Work Phone: [facility] 10-04-2023 10:35-0400 Blood Pressure Location Lionel WHITNEY [facility] 10-04-2023 10:35-0400 Diastolic blood pressure 88 mm[Hg] Lionel WHITNEY [facility] 10-04-2023 10:35-0400 Heart rate 72 /min Lionel WHITNEY [facility] 10-04-2023 10:35-0400 Respiratory rate 16 /min Lionel WIHTNEY [facility] 10-04-2023 10:35-0400 Systolic blood pressure 136 mm[Hg] Lionel WHITNEY [facility] 08-12-2023 11:10-0500 Body height 182.88 cm MD Yolande Monterroso Work Phone: [facility] 08-12-2023 11:10-0500 Body mass index (BMI) [Ratio] 24.3 kg/m2 MD Yolande Monterroso Work Phone: [facility] 08-12-2023 11:10-0500 Body weight 81.19 kg MD Yolande Monterroso Work Phone: [facility] 02-10-2023 14:16-0400 Blood Pressure Location Qamar [employer] [facility] 02-10-2023 14:16-0400 Diastolic blood pressure 80 mm[Hg] Qamar NILL [facility] 02-10-2023 14:16-0400 Heart rate 70 /min Qamar NILL [facility] 02-10-2023 14:16-0400 Respiratory rate 16 /min Qamar NILL [facility] 02-10-2023 14:16-0400 Systolic blood pressure 124 mm[Hg] Qamar NILL [facility] 12-03-2022 10:20-0400 Body height 182.88 cm Zoran Chavez Other [employer] Other 12-03-2022 10:20-0400 Body mass index (BMI) [Ratio] 25.49 kg/m2 Zoran Chavez Other [employer] Other 12-03-2022 10:20-0400 Body weight 85.28 kg Zoran Chavez Other [employer] Other 10-22-2022 10:20-0400 Body height 182.88 cm Zoran Chavez Other [employer] Other 10-22-2022 10:20-0400 Body mass index (BMI) [Ratio] 25.63 kg/m2 Zoran Chavez Other [employer] Other 10-22-2022 10:20-0400 Body weight 85.73 kg Zoran Chavez Other [facility] [employer] Other 10-22-2022 10:20-0400 Diastolic blood pressure 80 mm[Hg] Zoran Chavez Other [employer] Other 10-22-2022 10:20-0400 Systolic blood pressure 110 mm[Hg] Zoran Chavez Other [facility] [employer] Other 02-24-2022 10:43-0400 Blood Pressure Location Lioneljameel WHITNEY [facility] 02-24-2022 10:43-0400 Diastolic blood pressure 80 mm[Hg] Lionel WHITNEY [facility] 02-24-2022 10:43-0400 Heart rate 65 /min Lionel WHITNEY [facility] 02-24-2022 10:43-0400 Respiratory rate 16 /min Lionel WHITNEY [facility] 02-24-2022 10:43-0400 Systolic blood pressure 140 mm[Hg] Lionel WHITNEY [facility] 02-17-2022 15:15-0400 Diastolic blood pressure 83 mm[Hg] MD Yolande Monterroso Work Phone: [facility] 02-17-2022 15:15-0400 Heart rate 58 /min MD Yolande Monterroso Work Phone: [facility] 02-17-2022 15:15-0400 Respiratory rate 16 /min MD Yolande Monterroso Work Phone: [facility] 02-17-2022 15:15-0400 SaO2% (BldA) [Mass fraction] 95 % MD Yolande Monterroso Work Phone: [facility] 02-17-2022 15:15-0400 Systolic blood pressure 166 mm[Hg] MD Yolande Monterroso Work Phone: [facility] 02-17-2022 14:30-0400 Body height 182.88 cm MD Yolande Monterroso Work Phone: [facility] 02-17-2022 14:30-0400 Body mass index (BMI) [Ratio] 26.2 kg/m2 MD Yolande Monterroso Work Phone: [facility] 02-17-2022 14:30-0400 Body weight 87.7 kg MD Yolande Monterroso Work Phone: [facility] 02-17-2022 14:17-0400 Body temperature 97.6 [degF] MD Yolande Monterroso Work Phone: [facility] 02-17-2022 13:52-0400 Inhaled oxygen flow rate 10 L/min MD Yolande Monterroso Work Phone: [facility] 10-17-2021 11:42-0400 Body height 180.34 cm MD Yolande Monterroso Work Phone: [facility] 10-17-2021 11:42-0400 Body mass index (BMI) [Ratio] 27 kg/m2 MD Yolande Monterroso Work Phone: [facility] 10-17-2021 11:42-0400 Body temperature 98.4 [degF] MD Yolande Monterroso Work Phone: [facility] 10-17-2021 11:42-0400 Body weight 88 kg MD Yolande Monterroso Work Phone: [facility] 10-17-2021 11:42-0400 Diastolic blood pressure 90 mm[Hg] MD Yolande Monterroso Work Phone: [facility] 10-17-2021 11:42-0400 Heart rate 64 /min MD Yolande Monterroso Work Phone: [facility] 10-17-2021 11:42-0400 SaO2% (BldA) [Mass fraction] 100 % MD Yolande Monterroso Work Phone: [facility] 10-17-2021 11:42-0400 Systolic blood pressure 172 mm[Hg] MD Yolande Monterroso Work Phone: [facility] Encounters Encounter Date Encounter Type Care Provider Facility Start: 10-26-2023 End: 10-26-2023 ambulatory Lionel WHITNEY Facility:[facility] Start: 10-26-2023 End: 10-26-2023 Patient encounter procedure Lionel WHITNEY [facility] Start: 10-11-2023 End: 10-11-2023 ambulatory MD Yolande Monterroso Work Phone: [facility] Work Phone: Start: 10-11-2023 End: 10-11-2023 Patient encounter procedure MD Yolande Monterroso Work Phone: [facility] Work Phone: Start: 10-04-2023 End: 10-04-2023 ambulatory Lionel WHITNEY Facility:[facility] Start: 10-04-2023 End: 10-04-2023 Patient encounter procedure Lionel WHITNEY [facility] Start: 09-30-2023 End: 09-30-2023 ambulatory KELLY ORTIZ Not Available Start: 09-09-2023 End: 09-09-2023 ambulatory VASU GALEANO Not Available Start: 08-28-2023 End: 08-28-2023 ambulatory Yolande Monterroso Facility:[facility] Start: 08-28-2023 End: 08-28-2023 Patient encounter procedure MD Yolande Monterroso Work Phone: [facility] [place] Work Phone: Start: 08-12-2023 End: 08-12-2023 ambulatory Yolande Monterroso Facility:[facility] Start: 08-12-2023 End: 08-12-2023 ambulatory MD Yolande Monterroso Work Phone: [facility] Work Phone: Start: 08-12-2023 End: 08-12-2023 Patient encounter procedure MD Yolande Monterroso Work Phone: [facility] [place] Work Phone: Start: 08-12-2023 End: 08-12-2023 ambulatory MD Yolande Monterroso Work Phone: [facility] Work Phone: Start: 08-12-2023 End: 08-12-2023 Patient encounter procedure MD Yolande Monterroso Work Phone: [facility] Work Phone: Start: 07-26-2023 End: 07-27-2023 ambulatory Dereck Landa MD Facility:[facility] Start: 04-27-2023 End: 04-27-2023 ambulatory Lionel WHITNEY Facility:[facility] Start: 04-27-2023 End: 04-27-2023 Patient encounter procedure Lionel WHITNEY [facility] Start: 03-15-2023 End: 03-16-2023 ambulatory Dereck Landa MD Facility:[facility] Start: 03-10-2023 End: 03-10-2023 ambulatory Qamar SMITH Facility:[id number] Start: 02-10-2023 End: 02-10-2023 ambulatory Qamar R LUIS Facility: [facility] Start: 02-10-2023 End: 02-10-2023 Patient encounter procedure Qamar SMITH [facility] Start: 01-20-2023 End: 01-20-2023 ambulatory Lionel WHITNEY Facility:[facility] Start: 01-14-2023 End: 01-14-2023 ambulatory Lionel Aubrey DEVONTE Facility:[id number] Start: 01-05-2023 End: 01-05-2023 ambulatory Lionel WHITNEY Facility:[facility] Start: 01-05-2023 End: 01-05-2023 Patient encounter procedure Lionel Aubrey WHITNEY [facility] Start: 01-01-2023 End: 01-01-2023 ambulatory Yolande Monterroso Facility:[facility] Start: 01-01-2023 End: 01-01-2023 ambulatory MD Yolande Monterroso Work Phone: [facility] Work Phone: Start: 01-01-2023 End: 01-01-2023 Patient encounter procedure MD Yolande Monterroso Work Phone: [facility] [place] Work Phone: Start: 12-28-2022 End: 12-29-2022 ambulatory Dereck Landa MD Facility:[facility] Start: 12-14-2022 End: 12-15-2022 ambulatory Dereck Landa MD Facility:[facility] Start: 12-03-2022 End: 12-03-2022 ambulatory Zoran Chavez Other [employer] Other Start: 12-03-2022 Office outpatient visit 15 minutes Zoran Chavez [facility] Start: 11-20-2022 End: 11-21-2022 ambulatory DERECK LANDA Facility:[facility] Start: 10-28-2022 End: 10-29-[address] NELLY HERRERA Facility:[facility] Start: 10-27-2022 End: 11-18-[address] ZORAN CHAVEZ Facility:[facility] Start: 10-23-2022 End: 10-24-[address] ZORAN CHAVEZ Facility:[facility] Start: 10-22-2022 End: 10-22-2022 ambulatory Zoran Chavez Other [place] [employer] Other Start: 10-22-2022 Office outpatient visit 15 minutes Zoran [facility] Start: 10-05-2022 End: 10-06-[address] YOLANDE MONTERROSO . Facility:[facility] Start: 09-24-2022 End: 09-25-[address] YOLANDE MONTERROSO . Facility:[facility] Start: 09-21-2022 End: 09-22-[address] LIONEL WHITNEY . Facility:[facility] Start: 09-21-2022 End: 09-21-2022 Patient encounter procedure Lionel WHITNEY [facility] Start: 08-19-2022 End: 08-20-[address] LIONEL WHITNEY . Facility:[facility] Start: 08-17-2022 End: 08-17-2022 Patient encounter procedure Lionel WHITNEY [facility] Start: 08-04-2022 End: 08-05-[address] YOLANDE MONTERROSO . Facility:[facility] Start: 07-28-2022 End: 07-29-[address] YOLANDE MONTERROSO . Facility:[facility] Start: 07-23-2022 End: 07-23-[address] LIONEL WHITNEY . Facility:[facility] Start: 07-20-2022 End: 07-20-2022 Patient encounter procedure Lionel WHITNEY [facility] Start: 07-07-2022 End: 07-07-2022 Patient encounter procedure Lionel WHITNEY [facility] Start: 06-30-2022 End: 07-01-[address] YOLANDE MONTERROSO . Facility:[facility] Start: 06-04-2022 End: 06-04-[address] YOLANDE MONTERROSO . Facility:[facility] Start: 05-25-2022 End: 05-26-[address] YOLANDE MONTERROSO . Facility:[facility] Start: 05-18-2022 End: 05-18-2022 Patient encounter procedure Lionel WHITNEY [facility] Start: 04-27-2022 End: 04-28-[address] YOLANDE MONTERROSO . Facility:[facility] Start: 04-18-2022 End: 04-18-[address] FELICIA GALDMAEZ . Facility:[facility] Start: 04-15-2022 End: 04-15-2022 Patient encounter procedure Lionel WHITNEY [facility] Start: 03-26-2022 End: 03-26-[address] LIONEL WHITNEY . Facility:[facility] Start: 03-12-2022 End: 03-13-[address] YOLANDE MONTERROSO . Facility:[facility] Start: 03-09-2022 End: 03-09-2022 Patient encounter procedure [facility]IT[facility] Start: 02-27-2022 End: 02-27-2022 Lab Drop off Lionel WHITNEY [facility] Start: 02-27-2022 End: 02-27-2022 Patient encounter procedure [facility] WHITNEY [facility] Start: 02-24-2022 End: 02-24-2022 Patient encounter procedure Lionel WHITNEY [facility] Start: 02-17-2022 End: 02-17-2022 Admission to same day surgery center MD Yolande [facility]roso [facility] Start: 02-13-2022 End: 02-13-2022 Patient encounter procedure MD Yolande Monterroso Work Phone: [facility] Start: 02-06-2022 End: 02-06-2022 Patient encounter procedure MD Yolande Monterroso Work Phone: [facility] Start: 11-11-2021 End: 11-11-2021 Patient encounter procedure Lionel WHITNEY [facility] Start: 11-05-2021 End: 11-05-2021 Patient encounter procedure Lionel WHITNEY [facility] Start: 10-29-2021 End: 10-29-2021 Admission to same day surgery center MD Yolande Monterroso [facility] Start: 10-27-2021 End: 10-27-2021 Patient encounter procedure MD Yolande Monterroso Work Phone: [facility] Start: 10-17-2021 End: 10-17-2021 Patient encounter procedure MD Yolande Monterroso Work Phone: [facility] Procedures Date Procedure Procedure Detail Performing Clinician Start: 08-28-2023 MRI of cervical spin e with contrast MD Yolande Monterroso Work Phone: Start: 08-12-2023 X-ray of lumbar spin e, six views including bending views MD Yolande Mnoterroso Work Phone: Start: 08-12-2023 X-ray of cervical spine MD Yolande Monterroso Work Phone: Start: 04-27-2023 Transurethral cystoscopy Lionel WHITNEY Start: 01-14-2023 Transurethral resect ion of bladder neoplasm Lionel WHITNEY Start: 01-01-2023 MR lumbar spine wo con MD Yolande Monterroso Work Phone: Start: 09-21-[address] NELLY HERRERA Comment on above: Performed By: #### P SAD #### [facility] [address] [address] [address] Johnna Dixon Start: 02-17-2022 Transurethral resect ion of bladder neoplasm MD Yolande Monterroso Work Phone: Start: 02-17-2022 Transurethral resect ion of bladder neoplasm Lionel WHITNEY Start: 10-29-2021 Transurethral resect ion of bladder neoplasm MD Yolande Monterroso Work Phone: Start: 10-29-2021 Diagnostic radiograp hy of abdomen MD Yolande Monterroso Work Phone: Start: 10-29-2021 Transurethral resect ion of bladder neoplasm Lionel WHITNEY Start: 10-17-2021 Plain chest X-ray MD Mcgowan Work Phone: Start: 10-14-2021 Cystourethroscopy wi th dilation of urethral stricture Lionel WHITNEY Start: 06-22-2017 Repair of umbilical hernia Lionel WHITNEY Comment on above: Umbilical hernia rep air with mesh ( assisted with robot) Start: 05-20-2017 Arthroscopy of shoulder Lionel WHITNEY Comment on above: LEFT SHOULDER ARTHRO SCOPIC, CHONDROPLASTY,DEBRIDEMENT OF PARTIAL ROTATOR CUFF TEAR, REMOVAL RETAINED SUTURE Start: 08-29-2014 bilateral fifth part ial metatarsal osteotomies and Silver Tailor's bunionectomies Lionel WHITNEY Start: 08-19-2014 Radical prostatectomy Mia WHITNEY Start: 08-15-2014 Radical perineal prostatectomy Lionel WHITNEY Comment on above: had recently at [facility] Start: 12-01-2014 Colonoscopy Qamar NI SELAM Start: 06-21-2010 Complete repair of r otator cuff Lionel WHITNEY Comment on above: right Start: 06-21-1998 Shoulder reconstruction Lionel WHITNEY Comment on above: left possibly a scre w in there per pt Start: 06-21-1964 Appendectomy Lionel KEELY VILLANUEVARozina Arthroplasty of the ankle Jose Alfredo WHITNEY Comment on above: 1990 Arthroscopy of knee Lionel WHITNEY Klippel-Feil sequenc e (disorder) Lionel WHITNEY Plan of Treatment Date Care Activity Detail Author Start: 10-09-2024 ambulatory Ambulatory Facility:[facility] Start: 08-12-2023 Patient referral [facility] Work Phone: Start: 08-12-2023 X-ray of cervical spine XR cer vical spine w flex/ext [facility] Start: 08-12-2023 X-ray of lumbar spin e, six views including bending views XR lumbar spine 6V w bending [facility] Start: 08-12-2023 XR Cervical spine Vi ews W flexion and W extension [facility] Start: 08-12-2023 XR Lumbar spine Views [facility] Start: 02-17-2022 End: 02-17-2022 [facility] Work Phone: Start: 02-17-2022 Transurethral resect ion of bladder neoplasm OR Cysto/TURBT/Bladder Biopsy/Fulg (Not Applicable) [facility] Start: 02-17-2022 End: 02-17-2022 Admission to same day surgery center Departed Surgical Day Care [facility] [place] Start: 02-13-2022 End: 02-13-2022 Patient encounter procedure Departed Clinical [facility]-Glp-Iflcucma Testing Microbial culture of sputum [facility] MR Cervical spine WO and W contrast IV [facility] Patient referral [facility] Work Phone: Immunizations Immunization Date Immunization Notes Care Provider Gary francisco 07-13-2023 zoster vaccine recombinant Lionel WHITNEY [facility] 03-23-2023 influenza virus vacc ine, unspecified formulation Lionel WHITNEY [facility] 03-23-2023 zoster vaccine recombinant Lionel WHITNEY [facility] 04-16-2022 SARS-CoV-2 (COVID-19 ) [id number] Qamar SMITH [facility] 03-27-2022 influenza virus vacc ine, unspecified formulation Qamar SMITH [facility] 05-06-2021 COVID-19 mRNA-1273 (Moderna) MD Yolande Monterroso Work Phone: [facility] 09-19-2020 COVID-19 mRNA-1273 (Moderna) MD Yolande Monterroso Work Phone: [facility] Comment on above: Result Comment: 2022: [id number] 08-22-2020 COVID-19 mRNA-1273 (Moderna) MD Yolande Monterroso Work Phone: [facility] Comment on above: Result Comment: 2022: [id number] 06-21-2020 SARS-CoV-2 (COVID-19 ) mRNA-1273 vaccine Lionel WHITNEY [facility] 05-23-2020 influenza virus vacc ine, unspecified formulation Qamar SMITH [facility] 04-03-2020 influenza virus vacc ine, unspecified formulation Qamar NILL [facility] 05-29-2019 influenza virus vacc ine, unspecified formulation Qamar NILL [facility] 04-14-2019 influenza, unspecifi ed formulation Qamar NILL [facility] 09-26-2018 tetanus and diphther ia toxoids, adsorbed, preservative free, for adult use (2 Lf of tetanus toxoid and 2 Lf of diphtheria toxoid) Qamar NILL [facility] 10-11-2017 pneumococcal polysaccharide vaccine, 23 valent Qamar NILL [facility] 07-22-2016 pneumococcal conjuga te vaccine, 13 valent Qamar [employer] [facility] 06-29-2013 tetanus toxoid, redu mirtha diphtheria toxoid, and acellular pertussis vaccine, adsorbed Vizify [facility] 03-10-2000 Td(adult) unspecifie d formulation Vizify [facility] Payers Date Payer Category Payer Self-pay [id number] 2022 Unknown 1958 Medicare [id number] 1959 Unknown [id number] 2.16.840.1.056520.19 1951 Unknown [id number] 2.16.840.1.346494.3.579.2. 593 1951 Unknown [id number] 2.16.840.1.282305.3.579.2. 593 1951 Unknown [id number] 2.16.840.1.480377.3.579.2. 593 1951 Unknown [id number] 2.16.840.1.287388.3.579.2. 593 1951 Unknown [id number] 2.16.840.1.923819.3.579.2. 593 1951 Unknown [id number] 2.16.840.1.898568.3.579.2. 593 1951 Unknown [id number] 2.16.840.1.449245.3.579.2. 593 1951 Unknown [id number] 2.16.840.1.411953.3.579.2. 593 1951 Unknown [id number] 2.16.840.1.997871.3.579.2. 593 1951 Unknown [id number] 2.16.840.1.457615.3.579.2. 593 1951 Unknown [id number] 2.16.840.1.698210.3.579.2. 593 1951 Unknown [id number] 2.16.840.1.293953.3.579.2. 593 1951 Unknown [id number] 2.16.840.1.669161.3.579.2. 593 1951 Unknown [id number] 2.16.840.1.243969.3.579.2. 593 1951 Unknown [id number] 2.16.840.1.224291.3.579.2. 593 1951 Unknown [id number] 2.16.840.1.197766.3.579.2. 593 1951 Unknown [id number] 2.16.840.1.327924.3.579.2. 593 1951 Unknown [id number] 2.16.840.1.229105.3.579.2. 593 1951 Unknown [id number] 2.16.840.1.155418.3.579.2. 593 1951 Unknown [id number] 2.16.840.1.260167.3.579.2. 196 1951 Unknown [id number] 2.16.840.1.990463.3.579.2. 196 1951 Unknown [id number] 2.16.840.1.320541.3.579.2. 196 1951 Unknown [id number] 2.16.840.1.664352.3.579.2. 196 1951 Unknown [id number] 2.16.840.1.467879.3.579.2. 196 1951 Unknown [id number] 2.16.840.1.335003.3.579.2. 1259 1951 Unknown [id number] 2.16.840.1.523293.3.579.2. 1259 1951 Unknown [id number] 2.16.840.1.854064.3.579.2. 727 1951 Unknown [id number] 2.16.840.1.409069.3.579.2. 727 1951 Unknown [id number] 2.16.840.1.184437.3.579.2. 727 1951 Unknown [id number] 2.16.840.1.619441.3.579.2. 727 1951 Unknown [id number] 2.16.840.1.946276.3.579.2. 727 1951 Unknown [id number] 2.16.840.1.267437.3.579.2. 727 1951 Unknown [id number] 2.16.840.1.209136.3.579.2. 727 1951 Unknown [id number] 2.16.840.1.073757.3.579.2. 727 1951 Unknown [id number] 2.16.840.1.186737.3.579.2. 727 Medicare Medicare [id number] Private Health Insurance [id number] Unknown [facility] K [id number] Unknown [id number] 2.16.840.1.989359.3.579.2. 531 Unknown [id number] 2.16.840.1.919051.3.579.2. 531 Unknown [id number] 2.16.840.1.021690.3.579.2. 531 Social History Date Type Detail Facility Start: 10-17-2021 End: 10-04-2023 Tobacco smoking status NHIS Ex-smoker (finding) [facility] Comment on above: pt quit smoking 10+ yrs ago Start: 1950 Sex Assigned At Male [facility] Start: 11-05-2021 Tobacco smoking status Never s moked tobacco (finding) [facility] Tobacco smoking status Never [facility] Comment on above: pt quit smoking 10+ yrs ago Sex Assigned At Male [facility] Medical Equipment Procedure Code Equipment Code Equipment Original Text Equipment Identifier Dates Transurethral resection of bladder tumor (TURBT) with cystoscopy Polymeric ureteral stent ([id number] [facility] Start: 10-29-2021 Decompression, spine, cervical, posterior approach Bone-screw internal spinal fixation system, non-sterile ()[id number] FDA Start: 04-18-2020 Decompression, spine, cervical, posterior approach Bone-screw internal spinal fixation system, non-sterile ()[id number] FDA Start: 04-18-2020 Decompression, spine, cervical, posterior approach Bone-screw internal spinal fixation system, non-sterile ()[id number] FDA Start: 04-18-2020 Decompression, spine, cervical, posterior approach Bone-screw internal spinal fixation system, non-sterile ()[id number] FDA Start: 04-18-2020 Decompression, spine, cervical, posterior approach Bone-screw internal spinal fixation system, non-sterile ()[id number] FDA Start: 04-18-2020 Goals Date Patient Goal Desired Activity /State Functional Status Date Assessment Result Facility 10-26-2023 Functional Status N/A [facility] 10-04-2023 Functional Status N/A [facility] 04-27-2023 Functional Status N/A [facility] 02-10-2023 Functional Status N/A [facility] 01-05-2023 Functional Status N/A [facility] 02-24-2022 Functional Status N/A [facility] Clinical Notes 11-04-2021 to 10-26-2023 Note Date & Type Note Facility 10-26-2023 Hospital Discharge instructions Patient Education 10/26/2023 11:58:55 [facility] - Cystoscopy Discharge Instructions (CUSTOM) Cystoscopy [...] fever over 100 degrees. Follow Up Care 09/29/2023 09:06:13 With:Lionel DEVONTE Address: [address] [place], [place] [address] Business (1) When: Unknown Comments:Office will call to schedule follow up [facility] 10-26-2023 Note [id number] [facility] 10-26-2023 Note Custom Cystoscopy ? Voiding after the [...] you have a fever over 100 degrees. [facility] 10-04-2023 Hospital Discharge instructions Patient Education 10/04/2023 10:57:15 Cancer Screening for Men Cancer Screening for Men A cancer screening is a test or exam that checks for cancer. Your health care provider will recommend specific cancer screenings based on your age, medical history (including risk factors), and family history of cancer. Work with your health care provider to create a cancer screening schedule that protects your health. Who should have screening? All men should be considered for screening of certain cancers, including colorectal cancer, prostate cancer, lung cancer, and skin cancer. Your health care provider may recommend screenings for other types of cancer if: You had cancer before. You have a family member with cancer. You have abnormal genes that could increase the risk of cancer. You have risk factors for certain cancers, such as current or past use of tobacco products, or being overweight. When you should be screened for cancer depends on: Your age. Your medical history and your family's medical history. Certain lifestyle factors, such as smoking or other use of tobacco products. Environmental exposure, such as to asbestos. How is screening done? Colorectal cancer All adults should have screenings starting at age 45 and continuing until age 75. Your health care provider may recommend screening before age 45. You will have tests every 1 10 years, depending on your results and the type of screening test. People at increased risk should start screening at an earlier age. Talk with your health care provider about [...] small camera is inserted into the rectum. CT colonography. This test uses X-rays and a contrast dye to check the colon for polyps. If a polyp is found, you may need to have a colonoscopy so the polyp can be located and removed. Tests to look for cancer in the stool (feces) include: Guaiac-based fecal occult blood test (FOBT). This test can find blood in stool. It can be done at home with a kit. Fecal immunochemical test (FIT). This test can find blood in stool. For this test, you will need to collect stool samples at home. Stool DNA test. This test looks for blood in stool and any changes in DNA that can lead to colon cancer. For this test, you will need to collect a stool sample at home and send it to a lab. Prostate cancer Prostate cancer screening for men with average risk may start at age 50. Men with risk factors may need to be screened earlier, at ages 40 45. Talk with your health care provider about whether screening is right for you and, if so, how often you should be screened. Prostate cancer screening is done with blood tests and a digital rectal exam. During this exam, a health care provider uses a gloved finger to check prostate size. You may need to be screened for prostate cancer if: You have risk factors for prostate cancer, such as being or having a close family member with prostate cancer. You have had gene changes or a genetic condition that was passed on to you from a parent (inherited). These gene changes or genetic conditions include BRCA1 or BRCA2 gene mutations or Ivey syndrome. You have symptoms of prostate cancer, such as problems urinating or problems getting or keeping an erection (erectile dysfunction). When you have been screened for prostate cancer, future screening may be recommended based on the results of your blood tests. Lung cancer Lung cancer screening is done with a CT scan that looks for abnormal changes in the lungs. Discuss lung cancer screening with your health care provider if you are 50 80 years old and if any of the following apply to you: You currently smoke. You used to smoke heavily. You have a smoking history of 1 pack of cigarettes a day for 20 years or 2 packs a day for 10 years. You have quit smoking within the past 15 years. You may need to be screened every year if you smoke heavily or if you used to smoke. Skin cancer Skin cancer screening is done by checking the skin for unusual moles or spots and any changes in existing moles. Your health care provider should check your skin for signs of skin cancer at every physical exam. You should check your skin every month and tell your health care provider right away if anything looks unusual. Men with a hzmjby-hlep-auprku risk for skin cancer may want to see a cat skinner (typesetter apprentice) for an annual body check. What are the benefits of screening? Cancer screening is done to look for cancer in the very early stages, before it spreads and becomes harder to treat and before you would start to notice symptoms. Finding cancer early improves the chances of successful treatment. It may save your life. Where to find more information [place] [employer]: www.cancer.org Centers for Disease Control and Prevention: www.cdc.gov National Cancer Dyer: www.cancer.gov Contact a health care provider if: You have concerns about any signs or symptoms of cancer. These may include: Skin problems. You may have: ?Moles of an unusual shape or color. ?Changes in existing moles. ?A sore on your skin that does not heal. Tiredness (fatigue) that does not go away. Losing weight without trying. Blood in your urine or stool. Problems with urination. You may have: ?Changes in urination habits. ?Painful urination. Painful ejaculation. Problems with coughing or breathing. These may include: ?Coughing or trouble breathing that does not go away. ?Coughing up blood. Frequent pain or cramping in your abdomen. Summary Your health care provider will recommend specific cancer screenings based on your age, medical history, and family history of cancer. Work with your health care provider to create a cancer screening schedule that protects your health. Finding cancer early improves the chances of successful treatment. It may save your life. Contact a health care provider if you have concerns about any signs or symptoms of cancer. This information is not intended to replace advice given to you by your health care provider. Make sure you discuss any questions you have with your health care provider. Document Revised: 11/03/2021 Document Reviewed: 05/03/2020 [employer] Patient Education 2022 [employer] Follow Up Care 10/01/2022 10:55:16 With:Lionel WHITNEY MD, URL Address: [facility] [address] [place] [phone] When: Unknown Comments:1 yr w/ PSA [facility] 04-27-2023 Hospital Discharge instructions Patient Education [...] degrees. Follow Up Care 03/29/2023 14:17:45 With:Lionel WHITNEY Address: [facility] [address] [place] [address]- Business (1) When: Unknown Comments:Office will call to schedule follow up [facility] 04-27-2023 Note [id number] [facility] 04-27-2023 Note Custom Cystoscopy ? Voiding [...] you have a fever over 100 degrees. [facility] 02-10-2023 Note Chief Complaint consultation for surveillance colonoscopy HPI Staff 73 year old male presents on consultation from Dr. Monterroso for surveillance colonoscopy and anemia. Labs completed [...] Cervical vertebral fu (more content not included)... [facility] Comment on above: Result Comment: Elec tronically Signed By: LUIS NOBLE, Qamar Ernandez\Date and Time Signed: 02/10/23 15:05 EDT 01-05-2023 Hospital Discharge instructions Patient Education 01/05/2023 [...] degrees. Follow Up Care 12/16/2022 10:54:47 With:Lionel WHITNEY Address: [facility] [address] [place] [address]- Business (1) When: Unknown Comments:Office will call to schedule follow up [facility] 01-05-2023 Note [id number]:127 [facility] 01-05-2023 Note Custom Cystoscopy ? Voiding [...] you have a fever over 100 degrees. [facility] 12-03-2022 Evaluation note Encounter Date Diagnosis [...] M46.1) Nov, Neurogenic claudication (ICD-10 - R29.818) Get[facility] Other 05-04-2023 Evaluation note* Encounter Date Diagnosis [...] spine October, Neurogenic claudication (ICD-10 - R29.818) [facility] Other 04-03-2023 Hospital Discharge instructions Patient Education 09/21/2022 08:24:18 [...] if anything looks unusual. Men with a enzwgo-kman-klqrbk risk for skin cancer may want to see a cat skinner (typesetter apprentice) for an annual body check. Where to find more information National Cancer Dyer: https://www.cancer.gov/about-cancer/screening Centers for Disease Control and Prevention: https://www.cdc.gov/cancer/dcpc/prevention/screening.htm [place] [employer]: https://www.cancer.org/latest-news/1-hjvdox-qifbmxolr-oemho-jph-rro.html Contact a health care provider if: You [...] 03/04/2017 Document Revised: 02/24/2019 Document Reviewed: 03/04/2017 [employer] Patient Education 2020 [employer] Follow Up Care 09/19/2021 11:05:08 With:DEVONTE NOBLE, Lionel Burgos, [place] Address: [facility] [address], [place] [address]- When: Unknown [facility] 01-17-2023 Hospital Discharge instructions Patient Education 07/07/2022 10:48:34 [...] degrees. Follow Up Care 07/02/2022 14:04:56 With:Lionel WHITNEY Address: [facility] [address] [place] [address]- Business (1) When: Unknown Comments:Office will call to schedule follow up [facility]09-06-2022 Hospital Discharge instructions Patient Education 02/24/2022 11:23:44 [...] if anything looks unusual. Men with a uiauxx-eytx-ymhsqz risk for skin cancer may want to see a cat skinner (typesetter apprentice) for an annual body check. Where to find more information National Cancer Dyer: https://www.cancer.gov/about-cancer/screening Centers for Disease Control and Prevention: https://www.cdc.gov/cancer/dcpc/prevention/screening.htm [place] [employer]: https://www.cancer.org/latest-news/0-ltmoth-raqlbvzqk-iulju-aby-ujj.html Contact a health care provider if: You [...] 03/04/2017 Document Revised: 02/24/2019 Document Reviewed: 03/04/2017 [employer] Patient Education 2020 [employer] Follow Up Care 02/05/2022 13:48:40 With:Lionel WHITNEY MD, URL Address: [facility] [address] [place] [phone] When: Unknown [facility] [id number] Hospital Discharge instructions Patient Education 11/11/2021 09:47:46 [...] degrees. Follow Up Care 11/10/2021 13:35:37 With:Lionel WHITNEY Address: [facility] [address] [place] [address] Business (1) When: Unknown Comments:Keep scheduled appointment [facility]05-17-2022 Hospital Discharge instructions Patient Education 11/04/2021 [...] who: Are older than age 65. Are -[place]. Are obese. Have a family history of [...] cells. Follow these instructions at home: Take fiad-uyl-lalmnjn and prescription medicines only as told by [...] 06/07/2006 Document Revised: 05/20/2018 Document Reviewed: 02/15/2017 [employer] Patient Education 2020 [employer] Follow Up Care 10/14/2021 11:26:04 With:Lionel WHITNEY MD, URL Address: [facility] [address] [place] [address] Dr, [place] [address]- When: Unknown [facility] [employer] + Plan note Future Appointments Appointment Date:09/21/2022 09:45:00 AM Scheduled Provider:Lionel WHITENY MD Location:[facility] [place] Appointment Type:URO Office Visit [facility] [employer] + Plan note Future Appointments Appointment Date:03/09/2022 09:00:00 AM Scheduled Provider: Location:[facility] [place] Appointment Type:URO Nurse Visit Appointment Date:04/15/2022 09:00:00 AM Scheduled Provider: Location:[facility] [place] Appointment Type:URO Nurse Visit Appointment Date:09/21/2022 09:45:00 AM Scheduled Provider:Lionel WHITNEY MD Location:[facility] [place] Appointment Type:URO Office Visit [facility] [employer] evaluation + Plan note Future Appointments Appointment Date:03/09/2022 09:00:00 AM Scheduled Provider: Location:[facility] [place] Appointment Type:URO Nurse Visit Appointment Date:04/15/2022 09:00:00 AM Scheduled Provider: Location:[facility] [place] Appointment Type:URO Nurse Visit Appointment Date:09/21/2022 09:45:00 AM Scheduled Provider:Lionel WHITNEY MD [facility] Office Visit Diagnostic Tests Pending * [facility] App[facility]ments Appointment Date:04/15/2022 09:00:00 AM Scheduled Provider: Location:[facility] Appointment Type:URO Nurse Visit Appointment Date:09/21/2022 09:45:00 AM Scheduled Provider:Lionel WHITNEY MD [facility] Type:[facility]O Office Visit [facility] evaluation + Plan note Future Appointments Appointment Date:07/20/2022 10:00:00 AM Scheduled Provider: [facility] App[facility] Type:URO Nurse Visit Appointment Date:08/17/2022 10:00:00 AM Scheduled Provider: [facility] App[facility] Type:URO Nurse Visit Appointment Date:09/21/2022 09:45:00 AM Scheduled Provider:Lionel WHITNEY MD [facility] Appoint[facility] Type:URO Office Visit Diagnostic Tests Pending * UroVysion FISH ([facility]) [facility] App[facility]ments Appointment Date:08/17/2022 10:00:00 AM Scheduled Provider: Location:[facility] Appointment Type:URO Nurse Visit Appointment Date:09/21/2022 09:45:00 AM Scheduled Provider:Lionel WHITNEY MD [facility] Type:[facility]O Office Visit [facility] Evaluation + Plan note Future Appointments Appointment Date:09/22/2022 02:00:00 PM Scheduled Provider: Location:[facility] Appointment Type:Urology CALL PAT Appointment Date:09/29/2022 11:15:00 AM Scheduled Provider: [facility] Appointment Type:Urology FT [facility] evaluation + Plan note Future Appointments Appointment Date:09/22/2022 02:00:00 PM Scheduled Provider: Location:[facility] Appointment Type:Urology CALL PAT FT Appointment Date:09/29/2022 11:15:00 AM Scheduled Provider: Location:[facility] Appointment Type:Urology FT Diagnostic Tests Pending * Urine Cytology ([facility]) 09/21/22 [facility] evaluation + Plan note Future Appointments Appointment Date:10/04/2023 10:15:00 AM Scheduled Provider:Lionel WHITNEY MD Location:[facility] Appointment Type:URO Office Visit Diagnostic Tests Pending * UroVysion Fish and Urine Cyto ([facility]) [facility] Future Appointments Appointment Date:10/04/2023 10:15:00 AM Scheduled Provider:Lionel WHITNEY MD Location:[facility] Appointment Type:URO Office Visit [facility] Evaluation + Plan note Future Appointments Appointment Date:10/04/2023 10:15:00 AM Scheduled Provider:Lionel WHITNEY MD Location:[facility] Appointment Type:URO Office Visit Diagnostic Tests Pending * UroVysion Fish and Urine Cyto ([facility]) [facility] Future Appointments Appointment Date:10/20/2023 12:00:00 PM Scheduled Provider: Location:[facility] Appointment Type:Urology CALL PAT FT Appointment Date:10/26/2023 10:00:00 AM Scheduled Provider: Location:[facility] Appointment Type:Urology FT Appointment Date:10/09/2024 10:15:00 AM Scheduled Provider:Lionel WHITNEY MD Location:[facility] Appointment Type:URO Office Visit Diagnostic Tests Pending * PSA Total 10/04/23 [facility] evaluation + Plan note Future Appointments Appointment Date:10/09/2024 10:15:00 AM Scheduled Provider:Lionel WHITNEY MD Location:[facility] Appointment Type:URO Office Visit Diagnostic Tests Pending * UroVysion Fish and Urine Cyto ([facility]) [facility] Work Phone: Evaluation note* Diagnosis Onset Date Resolution Status Spinal stenosis of cervical region with radiculopathy acute Spinal stenosis of lumbar region with radiculopathy acute [facility] Work Phone: Evaluation note* Diagnosis Onset Date Resolution Status Spinal stenosis of cervical region with radiculopathy acute Spinal stenosis of lumbar region with radiculopathy acute Colonization status acute COPD (chronic obstructive pulmonary disease) acute [facility] Work Phone: History general Narrative [...] KNEE SCOPE Surgical History L shoulder NAE -[facility] Hospitalization History FLU X2-3 DAYS Hospitalization History see surg. hx. Get10 Other Hospital course Narrative No data available for this section [facility] Hospital Discharge instructions No data available for this section [facility] progress note No data available for this section [facility] Chief Complaint and Reason for Visit [...] Spinal stenosis of lumbar region with radiculopathy Chief Complaint f/u neck and back pa in M48.02 M54.12 M48.061 M54.16 M48.[address] Monterroso Reason for Visit Spinal stenosis of c ervical region with radiculopathy Spinal stenosis of lumbar region with radiculopathy Colonization status COPD (chronic obstructive pulmonary disease) Family History No Family History Records Found [...] Diagnosis 1 Cervical spondylosis (M47.812) Referral [facility] Referring Provider First Name Zoran Referring Provider Last Name Scott Referring Provider Specialty Neurologica l Surgery Referred Organization [facility] Referred Address [address], [place],[address] Referred Provider Specialty Physical The rapist Referral Priority Routine Reason evaluate and tr eat for neck and back pain Diagnosis 1 Cervical spondylosis (M47.812) Diagnosis 2 Low back pain, unspe cified (M54.50) Referral Organization [facility] Referring Provider First Name Zoran Referring Provider Last Name Scott Referring Provider Specialty Neurologica l Surgery Referred Organization [facility] Referred Provider Raoul Soriano Referred Address [address], [place],[address] Referred Provider Specialty Pain Medicin e Referral Priority Routine General Notes Meron Donnelly 023 08:08:21 AM >Received today and waiting for office notes to be locked before sending referral Summary Purpose Additional Source Comments Care Teams (unrecognized sec tion and content) Team Status: Inactive Member Role Status Shawn Monterroso MD Primary Care Provider Active Lionel Whitney MD Attending Provider Active Team Status: Active Member Role Status Shawn Monterroso MD Primary Care Provider Active Team Status: Inactive Member Role Status Shawn Monterroso MD Primary Care Provider Active Zoran Chavez MD Attending Provider Active Team Status: Inactive Member Role Status Shawn Monterroso MD Primary Care Provider Active Start: August 12, 2023 End: August 12, 2023 LIDA Santoyo Attending Provider Active Start: August 12, 2023 End: August 12, 2023 Team Status: Active Member Role Status Shawn Monterroso MD Primary Care Provider Active Start: August 12, 2023 LIDA Santoyo Attending Provider Active Start: August 12, 2023 Team Status: Inactive Member Role Status Shawn Monterroso MD Primary Care Provider Active Start: August 28, 2023 End: August 28, 2023 LIDA Santoyo Attending Provider Active Start: August 28, 2023 End: August 28, 2023 Team Status: Inactive Member Role Status Shawn Monterroso MD Primary Care Provider Active Start: October 11, 2023 End: October 11, 2023 Qamar Aquino MD Attending Provider Active Sta rt: October 11, 2023 End: October 11, 2023 Goals (unrecognized section and content) Goals [...] alternate section No data available for this sectionGoals [...] and content) DATE CREATED AUTHOR 11/27/2022 [facility] DATE CREATED AUTHOR AUTHOR'S ORGANIZ ATION 07/29/2023 [facility] DATE CREATED AUTHOR AUTHOR'S ORGANIZ ATION 09/03/2023 [facility] DATE CREATED AUTHOR AUTHOR'S ORGANIZ ATION 10/01/2023 [facility] DATE CREATED AUTHOR AUTHOR'S ORGANIZ ATION 11/27/2023 [facility] FOR RECORDS PERTAINING TO PATIENTS WHO [...] BE BASED ON THE PRIMARY CLINICAL RECORDS. [employer] [facility]. provides no warranty or guarantee of the accuracy or completeness of information in this document.
--- NOTE | 2023-12-01 09:11 | P.CN_ITS ---
Consult Note: HPI Data of Consult Patient: known to practice within the last 3 years Consult date: 07/26/23 Requesting Physician: Erin Shelton NP Primary Care Provider: Deandre Staley MD Consult Narrative Reason for consult: chronic neck and right shoulder pain, LBP Narrative: 73yom who presents today for evaluation and management of chronic neck and right shoulder pain, as well as low back pain. Patient reports 50% improvement from prior right C4-5 C5-6 RFA. Patient continues to have right upper back and shoulder pain, as well as low back pain. Recent right shoulder Xray consistent with OA of AC joint. Pain today 08/28 increasing with activity bending twisting lifting. Pain decreased with reclining, heat, and lying. Patient finds mild to moderate relief from current medication regimen without side effects. Patient had to stop tizanidine due to extreme drowsiness but finds benefit to robaxin 500-1000mg BID PRN. cc:: CC: Erin Shelton NP Review of Systems ROS Status of ROS 10 or more systems reviewed and unremark able except as noted in history and below Musculoskeletal Reports: back pain, neck pain, extremity pain and joint pain PFSH PFS Medical History COPD (chronic obstructive pulmonary disease) ?J44.9 - Chronic obstructive pulmonary disease, unspecified (ICD-10) Arthritis ?M19.90 - Unspecified osteoarthritis, unspecified site (ICD-10) Anemia ?D64.9 - Anemia, unspecified (ICD-10) Bladder cancer ?C67.9 - Malignant neoplasm of bladder, unspecified (ICD-10) 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 - Other specified disorders of bladder (ICD-10) Neck pain ?M54.2 - Cervicalgia (ICD-10) Low back pain ?M54.50 - Low back pain, unspecified (ICD-10) Osteoarthritis ?M19.90 - Unspecified osteoarthritis, unspecified site (ICD-10) Acid reflux ?K21.9 - Gastro-esophageal reflux disease without esophagitis (ICD-10) Hearing deficit ?H91.90 - Unspecified hearing loss, unspecified ear (ICD-10) Prostate cancer ?C61 - Malignant neoplasm of prostate (ICD-10) Former smoker ?Z87.891 - Personal history of nicotine dependence (ICD-10) Hypertension ?I10 - Essential (primary) hypertension (ICD-10) Surgical History History of colonoscopy ?Z98.890 - Other specified postprocedural states (ICD-10) History of arthroscopy of knee ?Z98.890 - Other specified postprocedural states (ICD-10) History of foot surgery ?Z98.890 - Other specified postprocedural states (ICD-10) History of appendectomy ?Z90.49 - Acquired absence of other specified parts of digestive tract (ICD- 10) History of hernia repair ?Z98.890 - Other specified postprocedural states (ICD-10) ?Z87.19 - Personal history of other diseases of the digestive system (ICD-10) S/P cystoscopy ?Z98.890 - Other specified postprocedural states (ICD-10) H/O transurethral resection of bladder tumor (TURBT) ?Z98.890 - Other specified postprocedural states (ICD-10) ?Z86.03 - Personal history of neoplasm of uncertain behavior (ICD-10) H/O transurethral resection of bladder tumor (TURBT) ?Z98.890 - Other specified postprocedural states (ICD-10) ?Z86.03 - Personal history of neoplasm of uncertain behavior (ICD-10) S/P cervical spinal fusion ?Z98.1 - Arthrodesis status (ICD-10) H/O prostatectomy ?Z90.79 - Acquired absence of other genital organ(s) (ICD-10) History of ankle surgery ?Z98.890 - Other specified postprocedural states (ICD-10) H/O shoulder surgery ?Z98.890 - Other specified postprocedural states (ICD-10) Family History Other Depression Family history of diabetes mellitus Family history of hypertension Social History Within the past year, how often did you have a drink containing alcohol: 2-4 times a month Smoking status: Former smoker Non-prescribed substance use: denies use Previous occupational history: retired Highest level of school completed/degree received: Associate degree: occupational, technical, vocational program Meds Home Medications and Allergies Home Medications ?Medication ?Instructions ?Recorded ?Confirmed ?Type diclofenac sodium 75 mg 75 mg PO BID 11/20/22 03/15/23 History tablet,delayed release fluticasone fur. 100 mcg-umeclid 1 inh inhalation DAILY 11/20/22 03/15/23 History 62.5 mcg-vilant 25 mcg inhalat.powder (Trelegy Ellipta) pantoprazole 40 mg tablet,delayed 40 mg PO DAILY 11/20/22 03/15/23 History release hydrocodone 5 mg-acetaminophen 325 1 tab PO DAILY 01/28/23 03/15/23 History mg tablet amlodipine 5 mg tablet 5 mg PO DAILY 03/15/23 03/15/23 History methocarbamol 500 mg tablet mg PO QDAY 04/21/23 History hydrocodone 5 mg-acetaminophen 325 1 tab PO DAILY PRN pain #30 tabs 05/18/23 Rx mg tablet hydrocodone 5 mg-acetaminophen 325 1 tab PO .EVERYDAY PRN pain #30 07/12/23 Rx mg tablet tabs hydrocodone 5 mg-acetaminophen 325 1 tab PO DAILY PRN pain #30 tabs 08/24/23 Rx mg tablet hydrocodone 5 mg-acetaminophen 325 1 tab PO DAILY PRN pain #30 tabs 10/14/23 Rx mg tablet Allergies Allergy/AdvReac Type Severity Reaction Status Date / Time codeine Allergy Unknown Hives Verified 03/15/23 10:17 acetaminophen [From Percocet] AdvReac ineffective Verified 03/15/23 10:17 oxycodone [From Percocet] AdvReac ineffective Verified 03/15/23 10:17 Exam Constitutional Documenting provider has reviewed patient's vital signs: yes Common normals: no apparent distress, oriented x3, healthy appearing, alert and well nourished General appearance: cooperative Orientation/consciousness: Yes awake, Yes oriented to person, Yes oriented to place and Yes oriented to time [facility] Common normals: normocephalic, hearing grossly normal bilaterally and moist oral mucous membranes Head and scalp: normocephalic Eye Common normals: PERRL Pupil: PERRL Neck & C-Spine Common normals: full ROM General: normal visual inspection Cervical spine: pain with cervical ROM, cervical spine tenderness and paracervical muscle tenderness Other: no arm drift muscle strength bilat UE 5/5 with intact sensation axial pain with ROM Chest Common normals: inspection of chest normal Respiratory Common normals: normal respiratory effort, no retractions and no use of accessory muscles Effort & inspection: able to speak in complete sentences and symmetric chest movement Back & Pelvis Lumbar spine/lower back: ROM limited, pain with ROM and straight leg raise negative bilaterally Other: positive facet loading negative radiculopathy strength 5/5 in BLE sensation intact BLE Extremity Common normals: normal to inspection, full ROM and normal capillary refill Right upper extremity: shoulder joint Other: pain over right AC joint, pain increased with crossbody adduction, positive empty cans and lift off Neuro Common normals: oriented x3, CN's II-XII intact bilaterally, moves all extremities, no focal motor deficits, no sensory deficits noted and deep tendon reflexes 2+ bilaterally Sensorium/orientation: alert Motor exam: strength 5/5 throughout and no movement abnormalities noted Psych Common normals: mental status grossly normal, thought process normal, cooperative, affect normal, speech normal and activity/motor behavior normal Speech: normal speech Thought process: normal thought process Results Additional Findings Additional findings: If on a controlled substance or opioids, I have checked an [place]AR[place] report on this patient and there are no aberrancies noted in the prescribing history.??If on a controlled substance or opioid a drug screen was completed and reviewed within the last year, and if there has not been a drug screen completed we ordered one today to monitor higher risk, state monitored pain medication use. As part of providing excellent, safe, comprehensive care, the following was completed at our patient's visit: 1. A medication reconciliation and review to ensure accurate knowledge of current/active medications, including asking our patients to inform us about any [id number] medications or herbal remedies/nutritional supplements/alternative remedies. 2. A review to specifically ensure our patients have had annual screening for s creening for depression, screening for tobacco use, and screening for unhealthy alcohol use. For concerning screenings had a discussion with the patient, provided patient education, and recommended follow-up with primary care provider when appropriate. If patient noted with a risk of falling, they received education on strength, gait, and balance training to prevent future risk of falling. Assessment and Plan Assessment and Plan (1) Osteoarthritis of right shoulder: (2) Myofascial pain: (3) Cervical spondylosis: (4) Chronic prescription opiate use: Assessment and Plan: I feel these medications are improving the patient's quality of life and allow them to tolerate activities of daily living as well as participate in recreational activity.? The patient does not report intolerable side effects. The patient is NOT opioid naive and non-pharmacologic and non-opioid treatment has failed to significantly relieve the patient's pain and improve functionality. The patient has a diagnosis that is related to a somatic or visceral pain etiology. ? ?? I reviewed with the patient the potential risks and side effects with the use of? opioid medications including but not limited to respiratory depression,? sedation, and even . I verified the patient has access to naloxone should? these effects occur. I advised the patient to avoid the use of any other? sedation substances including alcohol, THC, and benzodiazepines while? taking opioid medications due to the risk of compounding side effects and? detrimental outcomes. I reviewed the [employer], pain treatment agreement, urine? drug screen, and opioid start talking forms. The patient was advised to let? their family know they had Naloxone in case they would need to administer? the medication.? ?? A drug screen was completed within the last year, and no aberrancies were noted regarding their use of controlled substances. The patient understands they are subject to the terms and conditions of the pain contract that they have signed. ? ?? I have checked an OARRS report on this patient today and there are no aberranci es noted in the prescribing history.? (5) Muscle spasm: (6) Cervical postlaminectomy syndrome: (7) Lumbar spondylosis: Plan mild lumbar pain on exam, reports intermittent moderate pain but overall well controlled. defer lumbar facets working towards RFA, can consider if pain worsens UDS today [employer] reviewed and signed patient can call for right AC joint injection with Dr Landa consider future repeat trigger point injections, patient found great benefit to prior TPI and is finding ongoing benefit continue current medication regimen, tolerating well without side effects pt has a TENS unit at home, encouraged to utilize f/u with Dr Landa
== END 2023-12-01 08:59 | disposition home or self-care (01) ==
PROVIDERS: PCP Family Medicine; Visit Provider Nurse Practitioner
DX: M19.011 Primary osteoarthritis, right shoulder (principal); M47.812 Spondylosis without myelopathy or radiculopathy, cervical region; Z79.891 Long term (current) use of opiate analgesic; M62.838 Other muscle spasm; M96.1 Postlaminectomy syndrome, not elsewhere classified; M47.816 Spondylosis without myelopathy or radiculopathy, lumbar region
CPT/HCPCS: G0463

== ENCOUNTER 2024-02-24 10:18 | Outpatient (OUT) | payer MEDICARE, SELFPAY ==
--- OUTSIDE RECORDS SUMMARY | 2024-02-24 10:39 | XMS_ITS | CCD ---
Author Organization [facility] Care Team Providers Care [employer] Name Role Phone MD Yolande Monterroso Primary Care Provider [phone] MD Lionel Whitney Attending Provider [phone] Yolande Monterroso Primary Care Physician Leidy Plummer Unavailable Unavailable MD Yolande Monterroso Primary Care Provider [phone] MD Lionel Whitney Attending Provider Zoran Chavez Unavailable SHARON, DR VILLEGAS Admitting Unavailable ABBPASCALE, DR VILLEGAS Attending Unavailable HOY ., DR [...] ., DR LANIER Primary Care Unavailable WHITNEY .DR FLOWERS Consulting Unavailable WHITNEY ., DR FLOWERS Admitting Unavailable WHITNEY ., DR FLOWERS Attending Unavailable SCOTT, DR MEEHAN Admitting Unavailable SCOTT, DR MEEHAN Attending Unavailable ZIDR ALLI EDWARDS Consulting Unavailable HOY ., DR LANIER Primary Care Unavailable JAMAICA GONZALEZ Consulting Unavailable SCOTT, DR MEEHAN Consulting Unavailable ROSA ELENAY .DR LANIER Consulting Unavailable HOY ., DR [...] Unavailable HOY ., DR LANIER Admvidya Unavailable ZARAGOZA, DEBORAH Consulting Unavailable HOY ., DR LANIER Consulting [...] LANIER Primary Care Unavailable HOY ., DR YOLANDE Delgado Unavailable WEST, DR SOCORRO Zapata Consulting Unavailable [...] LANIER Primary Care Unavailable HOY ., DR LANIRE Attending Unavailable HOY ., DR LANIER Consulting [...] DR LANIER Primary Care Unavailable MD Yolande Monterroso Primary Care Provider [phone] MD Zoran Chavez Attending Provider [phone] Gieditis , Andrius Kilgore Attending Unavailable Samanthaedhali NOBLE, Andrius Vytautpascale Attending Unavailable Giedraitis , Andrius Vjayesh Attending Unavailable Syeda NOBLE, Andrius Vyteli Attending Unavailable Syeda NOBLE, Andrius Magui Attending Unavailable MD Yolande Monterroso Primary Care Provider [phone] LIDA Lowery Attending Provider Yolande Monterroso Primary Care Unavailable Esther Lowery Admitting Unavailable Sebastián, Esther Attending Unavailable Yolande Monterroso Primary Care Unavailable Sebastián, Esther Admitting Unavailable Esther Lowery Attending Unavailable Yolande Monterroso Primary Care Unavailable Zoran Chavez Admitting Unavailable Zoran Chavez Attending Unavailable VASU GALEANO Attending Unavailable KELLY ORTIZ Attending Unavailable MD Yolande Monterroso Primary Care Provider [phone] LIDA Lowery Attending Provider Qamar SMITH Attending Unavailable WHITNEY, Lionel Burgos Attending Unavailable NILL, Qamar Burgos Attending Unavailable WHITNEY, Lionel Burgos Attending Unavailable WHITNEY, Lionel R Attending [...] Allergy 0 Itching, Itching agitated, Itching agitated, [facility] (20 sources) Codeine; 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: [Codeine] Drug Allergy 4 [facility] (10 sources) oxyCODONE; 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: [oxycodone] Drug Allergy 0 Itching, agitated, Itching, agitated, [facility] (16 sources) Acetaminophen / oxyCODONE; 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: [acetaminophen-oxyc odone] Drug Allergy aggitation [facility] James Comment on above: pt states this does not work for pt, pt is not allergic to vicodin (5 sources) cyclobenzaprine Drug Allergy 4 itching [facility] (5 sources) HYDROcodone Drug Allergy 4 anxiety [facility] (5 sources) tiZANidine Drug Allergy 4 hives [facility] (3 sources) Acetaminophen / HYDROcodone; 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: [Vicodin] Drug Allergy [facility] Rep[facility] (2 sources) Acetaminophen / oxyCODONE Drug Allergy [facility] (1 source) atorvastatin Drug Allergy [facility] (2 sources) tiZANidine Drug Allergy [facility] (1 source) cyclobenzaprine Drug Allergy 4 [facility] Repository (1 source) HYDROcodone Drug Allergy 4 [facility] Repository (1 source) tiZANidine Drug Allergy 4 [facility] Repository (1 source) Acetaminophen / oxyCODONE; 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: [Percocet 5/325] Drug Allergy [facility] Repository Medications Current Medications Medication Drug Class(es) [...] Start: 09-19-2021 take [address] [facility] twice daily carvedilol 6.25 mg Tab 12.5 [...] 07, 2019 1:00am April 19, 2020 8:04am Vwavkkrfzgm-Bkhprbrmc-Xxxfpu er (9 sources) Anticholinergic, Corticosteroid, beta2-Adrenergic Agonist Start: 08-07-2019 Qtuogracxhd-Xjggbndgp-Nhpbhh er (Trelegy Ellipta) 100-62.5-25 mcg Blister With [...] procedure, # 2 tab(s), Refills(s) 0, Pharmacy: [facility]/pharmacy #[id number], 170, cm, 01/20/23 10:45:00 EDT, Height/Length Dosing, 83.5, kg, 01/20/23 10:45:00 EDT, Weight Dosing Start Date: 01/20/23 Status: Ordered Start: 12-31-2022 take 1 tablet by barry th once daily Cipro 500 mg Tab 500 mg = 1 tab(s), Oral, Daily, Take 1 tablet the day before the procedure and 1 tablet after the procedure, # 6 tab(s), Refills(s) 0, Pharmacy: [facility]/pharmacy #[id number], 170, cm, 09/22/22 12:23:00 EDT, Height/Length Dosing, 78, kg, 02/24/22 10:53:00 EDT, W... Start Date: 12/31/22 Status: Ordered Start: 07-02-2022 take 1 tablet by barry th once daily Cipro 500 mg Tab 500 mg = 1 tab(s), Oral, Daily, Take 1 tablet the day before the procedure and 1 tablet after the procedure, # 6 tab(s), Refills(s) 0, Pharmacy: [facility]/pharmacy #[id number], 170, cm, 02/24/22 10:53:00 EDT, [...] procedure, # 2 tab(s), Refills(s) 0, Pharmacy: [facility]/pharmacy #[id number], 170, cm, 11/05/21 11:37:00 EDT, [...] procedure, # 2 cap(s), Refills(s) 0, Pharmacy: [facility]/pharmacy #[id number], 188, cm, 02/10/23 14:22:00 EDT, [...] period., # 30 tab(s), Refills(s) 3, Pharmacy: [facility], 170, cm, 10/04/23 [...] period., # 30 tab(s), Refills(s) 3, Pharmacy: [facility], 170, cm, 02/24/22 10:53:00 EDT, Height/Length Dosing, 78, kg, 02/24/22 10:53:00 EDT, Weight Dosing Start Date: 07/05/22 Status: Ordered Start: 09-19-2021 sildenafil 100 mg Tab 100 mg = 1 tab(s), Oral, Daily, Take 1 pill 30 minutes prior to sexual relations, # 30 tab(s), Refills(s) 3, Pharmacy: [facility], 170, cm, 09/19/21 [...] a surgery d one radical prostectomy at [facility] Cancer of prostate (20 sources) Personal [...] Other mcc (current) drug therapy; 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: [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 ? Any problems you or family [...] tells you to take them. ? Taking fhmr-nep-kklaule medicines, vitamins, herbs, and supplements. General instructions [...] health c (more content not included)... Normal [facility] UroVysion Fish and Urine Cyt o ([facility])on 11-02-2023 UVFISH & UC Diagnosis Info Invalid Interpretation Code [facility] Comment on above: Result Comment: A:Ur ine,Urine:Voided [...] on: 11/02/2023 10:22:27 Performed By: #### 1 [id number] ####[facility] [address] [place] [address] Consent for Procedure/Surger yon 10-26-2023 Consent for Procedure/Surgery [id number] 2#1.00TIFF Normal [facility] Consent for Treatmenton Consent for Treatment [id number] #1.00TIFF Normal [facility] IntraOperative Documentson 0 10-26-2023 IntraOperative Documents [id number] 2#1.00TIFF Tran [facility] Main OR Intraoperative Recor don 10-26-2023 Main OR Intraoperative Record IntraOp Document Type FTURO Summary Primary Physician: Lionel WHITNEY MD Finalized Date/Time: 10/26/23 11:57:52 Pt. Name: EMILY MARY Verma/Sex: 1950 Male Med Rec #: [id number] Physician: Lionel WHITNEY MD Financial #: [id number] Pt. Type: O Room/Bed: / Admit/Disch: 10/26/23 09:34:20 - Institution: Case Times FTURO Entry 1 Patient Times In Room 10/26/23 11:49:00 Out Room 10/26/23 11:57:00 Procedure Times Start 10/26/23 11:51:00 Stop 10/26/23 11:55:00 Anesthesia Times Last Modified By: Fabiana Galaviz 10/26/23 11:57:45 Case Attendance FTURO Entry 1 Entry 2 Entry 3 Case Attendee Lionel WHITNEY MD, K[facility] E McClain [facility] Role Performed Surgeon - Primary Sink Maker - Primary Scrub - Primary Time In [...] Out Lionel WHITNEY MD, Verified (If Participants Fabiana Galaviz, Applicable) Nanci Baig CST Time Out Complete 10/26/23 11:50:00 Allergies Reviewed? Yes Allergies Reviewed Self/Patient With Body Position Supine Prep Area PENIS Prep Agents Betadine Solution Skin. Condition Intact, Mcalmont, Warm, and Description REDDED DOTS ON Dry, [...] 10/26/23 11:57 Fabiana Galaviz 10/26/23 11:57 Normal [facility] Main OR Preoperative Recordo n 10-26-2023 Main OR Preoperative Record Holding Area Document Type FTURO Summary Primary Physician: Lionel WHITNEY MD Finalized Date/Time: 10/26/23 11:16:48 Pt. Name: EMILYMARY/Sex: 1950 Male Med Rec #: [id number] Physician: Lionel WHITNEY MD Financial #: [id number] Pt. Type: O Room/Bed: / Admit/Disch: 10/26/23 [...] 11:11:29 General Comments: ECCHYMOSIS TO BILATERAL ARMS. NATHALIE WELLS Finalized By: Nanci Cortes RN Document Signatures Signed By: Nanci Cortes RN 10/26/23 11:11 Nanci Cortes RN 10/26/23 11:16 Normal [facility] Operative Reporton Operative Report Patient: MARY DIAZ [...] with antibiotic coverage, Follow up arranged. Normal [facility] Comment on above: Result Comment: Elec tronically Signed By: Lionel WHITNEY MD\.br\Date and Time Signed: 10/26/23 11:58 EDT Outpatient Surgery Discharge Instructionon 10-26-2023 Outpatient Surgery Discharge Instruction [id number] 2#1.00TIFF Normal [facility] UroVysion Fish and Urine Cyt o ([facility])on 10-26-2023 [facility] Method of Extraction Voided Normal [facility] Comment on above: Performed By: #### 1 [id number] ####[facility] [address] [place] [address] [facility] Number of Jars 1 Invalid Interpretation Code [facility] Comment on above: Performed By: #### 1 [id number] ####[facility] [address] [place] [address] [facility] Specimen Urine Normal [facility] Comment on above: Performed By: #### 1 [id number] ####[facility] [address] [place] [address] [facility]UC Type of Service Technical Only Normal [facility] Comment on above: Performed By: #### 1 [id number] ####[facility] [address] [place] [address] Ambulatory Visit Summaryon 0 10-04-2023 Ambulatory Visit Summary EMILY MARY Rogers :1950 Visit Date:10/04/2023 Ambulatory Visit Instructions Your [...] Wednesday. 2023 12:00 PM EDT With: Where: [facility] Wednesday. 2023 10:00 AM EDT With: Where: [facility] Wednesday 10:15 AM EDT With: Lionel WHITNEY MD Where: [facility] Patient Educationon 10-04-19 Patient Education Oncology Cancer Screening for Men [...] if anything looks unusual. Men with a hbjqxe-iuxg-yzguzz risk for skin cancer may want to see a therapeutic specialist (cooker mechanic) for an annual body check. What are the benefits of screening? Cancer screening is done to look for cancer in the very early stages, before it spreads and becomes harder to treat and before you would start to notice symptoms. Finding cancer early improves the chances of successful treatment. It ma (more content not included)... Normal [facility] Urology Office/Clinic Noteon 10-04-2023 Urology Office/Clinic Note [...] Urology [address], [place] [address] [phone] Additional Instructions: 1 yr w/ PSA Patient [...] inhalation po (more content not included)... Normal [facility] Comment on above: Result Comment: Elec tronically Signed By: Lionel WHITNEY MD R\.br\Date and Time Signed: 10/04/23 11:16 EDT\.br\Electronically Co-Signed [...] Spoke to austyn hendricks for 10/26/23 at [facility]. LG Patient will be due in Apr 2024 for 6 month cysto/fish/cytol (bt ck) Normal [facility] Lab Reportson 09-22-2023 Lab Reports [id number] #1.00TIFF Normal [facility] MR cervical spine wo/w conon 08-29-2023 MR cervical spine wo/w con [place] [address] MRI Report Signed Patient: Mary Diaz MR#: [id number] : 1950 Acct:[id number] Age/Sex: 73 / M ADM Date: 08/28/23 Loc: MR Room: Type: [facility] Attending Dr: Esther Lowery LABEL FOLDER-C Copies to: LIDA Flynn Ordering Provider: LIDA [...] Lupe Campos M.D.08/29/2023 1:06 PM Dictation Location: [place] [address] Transcribed By: [facility] 08/29/23 1306 Dictated By: Lupe Campos MD 08/29/23 1254 Signed By: 08/29/23 1306 [facility] Creatinine (Bld) [Mass/Vol]O rdered By: Esther Lowery on 08-28-2023 Creatinine [Mass/Vol] 1.2 mg/dL 0.6-1.3 [facility] Comment on above: ER/ESD physician is notified/shown all ISTAT results.Critical values may be confirmed by laboratory testing ifdeemed necessary by ER attending doctor. ISTAT XRay CREon 08-28-2023 Creatinine [Mass/Vol] 1.2 mg/dL Normal 0.6-1.3 [facility] Comment on above: Result Comment: ER/E SD physician is notified/shown all ISTAT results. Critical values may be confirmed by laboratory testing if deemed necessary by ER attending doctor. Performed By: #### I SCRE #### [address] ISTAT GFR > 60.0 [facility] Comment on above: Result Comment: PERF ORMED BY: [place] [address] PATHOLOGIST PLUMBER APPRENTICE JENARO FLOREZ M.D. Performed By: #### I SCRE #### [address] No Panel InformationOrdered By: Esther Lowery on 08-28-2023 Bedside Estimated GFR (eGFR) > 60.0 [facility] XR cervical spine LAT/FLX/EX Ton 08-12-2023 XR cervical spine LAT/FLX/EXT [place] [address] XRay Report Signed Patient: Mary Diaz MR#: [id number] : 1950 Acct:[id number] Age/Sex: 73 / M ADM Date: 08/12/23 Loc: XD Room: Type: REG CLI Attending Dr: Esther Lowery LABEL FOLDER-C Copies to: LIDA Flynn Ordering Provider: LIDA [...] Kenny Leahy M.D.08/12/2023 3:29 PM Dictation Location: [place] [address] Transcribed By: [facility] 08/12/23 1529 Dictated By: Kenny Leahy DO 08/12/23 1528 Signed By: 08/12/23 1529 [facility] XR lumbar spine 6V w bending on 08-12-2023 XR lumbar spine 6V w bending [place] [address] XRay Report Signed Patient: Mary Diaz MR#: [id number] : 1950 Acct:[id number] Age/Sex: 73 / M ADM Date: 08/12/23 Loc: XD Room: Type: REG CLI Attending Dr: Esther Lowery LABEL FOLDER-C Copies to: LIDA Flynn Ordering Provider: LIDA [...] Kenny Leahy M.D.08/12/2023 3:28 PM Dictation Location: [place] [address] Transcribed By: [facility] 08/12/23 1528 Dictated By: Kenny Leahy DO 08/12/23 1526 Signed By: 08/12/23 1528 [facility] UroVysion Fish and Urine Cyt o ([facility])on 05-26-2023 UVFISH & UC Revision Information Invalid Interpretation Code [facility] Comment on above: Result Comment: Jimbo ection Reason -[ To Nur, 05/26/23 - 14:52 ] Corrected report issued to include PMS/PWS. The diagnosis remains unchanged. Correction Notes - Performed By: #### 1 [id number] ####[facility] [address] [place] [address] Consent for Procedure/Surger yon 04-27-2023 Consent for Procedure/Surgery [id number] #1.00TIFF [facility] Consent for Treatmenton Consent for Treatment [id number] #1.00TIFF Normal [facility] IntraOperative Documentson 1 06-27-2022 IntraOperative Documents [id number] #1.00TIFF [facility] Main OR Intraoperative Recor don 04-27-2023 Main OR Intraoperative Record IntraOp Document Type FTURO Summary Primary Physician: Lionel WHITNEY MD Finalized Date/Time: 04/27/23 11:02:57 Pt. Name: MARY DIAZ D.O.B./Sex: 1950 Male [facility] Rec #: [id number] Physician: Lionel WHITNEY MD Financial #: [id number] Pt. Type: O Room/Bed: / Admit/Disch: 04/27/23 10:06:44 - Institution: Case Times FTURO Entry 1 Patient Times In Room 04/27/23 10:52:00 Out Room 04/27/23 11:05:00 Procedure Times Start 04/27/23 10:56:00 Stop 04/27/23 11:00:00 Anesthesia Times Last Modified By: Edgard ZELAYA, EDITHORCheryl 04/27/23 11:00:10 Case Attendance FTURO Entry 1 Entry 2 Entry 3 Case Attendee DEVONTE NOBLE, Lionel Rene RN, CNOR, Safia GROSS, Nanci Luna Role Performed Surgeon - Primary Sink Maker - Primary Scrub - Primary Time In 04/27/23 10:52:00 04/27/23 10:52:00 04/27/23 10:52:00 Time Out 04/27/23 11:05:00 04/27/23 11:05:00 04/27/23 11:05:00 Procedure CYSTOSCOPY LOCAL(.) CYSTOSCOPY LOCAL(.) CYSTOSCOPY LOCAL(.) Comments Last Modified By: Edgard ZELAYA, CNOR, Edgard ZELAYA, EDITHOR, Edgard ZELAYA, Cheryl GALLARDO 04/27/23 Cheryl 04/27/23 Cheryl 04/27/23 11:00:58 11:00:58 [...] PAULINA Rene RN, Ruthann 04/27/23 11:02 Normal [facility] Main OR Preoperative Recordo n 11-07-2023 Main OR Preoperative Record Holding Area Document Type FTURO Summary Primary Physician: Lionel WHITNEY MD Finalized Date/Time: 04/27/23 10:26:02 Pt. Name: MARY DIAZ /Sex: 1950 Male Med Rec #: [id number] Physician: Lionel WHITNEY MD Financial #: [id number] Pt. Type: O Room/Bed: / Admit/Disch: 04/27/23 [...] Complaints of Pain: No Skin Integrity Intact, Mcalmont, Warm, & Dry Vitals - EU Blood Pressure 167/96 Pulse 76 bpm Respirations 20 br/min SPO2 97 % Last Modified By: Avani Costello LPN 04/27/23 10:25:57 General Comments: Temp 36.7 Finalized By: Avani Costello LPN Document Signatures Signed By: Avani Costello LPN 04/27/23 10:26 Normal [facility] Operative Reporton 3 Operative Report Patient: MARY [...] repeat a surveillance cystoscopy in 6 months.. [facility] Comment on above: Result Comment: Elec tronically Signed By: DEVONTE NOBLE, Lionel Burgos\.br\Date and Time Signed: 04/27/23 11:04 EST Outpatient Surgery Discharge Instructionon 04-27-2023 Outpatient Surgery Discharge Instruction [id number] #1.00TIFF [facility] Reminderson 04-27-2023 Reminders - From: Loretta Simons To: EU - Recalls Devonte; Cc: Loretta Simons; Sent: 03/05/2023 14:06:16 EDT Show up: 07/22/2023 14:06:00 EST Subject: Cysto/fish/cytol, Due Date/Time: 08/09/2023 14:06:00 EST Reminder/Recall Patient is due in August 2023 for 4 month cysto/fish/cytol (bt ck), ? PSA Pt will be due in October 2023 for 6 month cysto [facility] UroVysion Fish and Urine Cyt o ([facility])on 04-27-2023 [facility] Method of Extraction Voided Normal [facility] Comment on above: Performed By: #### 1 [id number] ####[facility] [address] [facility] [place] [address] [facility] Number of Jars 1 Invalid Interpretation Code [facility] Comment on above: Performed By: #### 1 [id number] ####[facility] [address] [place] [address] [facility] Specimen Urine Normal [facility] Comment on above: Performed By: #### 1 [id number] ####[facility] [address] [facility] [place] [address] [facility]UC Type of Service Technical Only Normal [facility] Comment on above: Performed By: #### 1 [id number] ####[facility] [address] [place] [address] Outside Colonoscopyon 2022 Outside Colonoscopy [id number] #1.00CD:127 Normal [facility] Reminderson 03-16-2023 Reminders - From: Stephanie Fletcher LPN To: N - Clinical; Sent: 03/16/2023 07:57:36 EDT Show up: 02/08/2028 07:00:00 EDT Subject: colonoscopy recall Due Date/Time: 03/10/2028 07:00:00 EDT Reminder/Recall Patient due for surveillance colonoscopy 03/10/2028 due to history of colonic polyps. Normal [facility] Consent for Procedure/Surger yon 02-11-2023 Consent for Procedure/Surgery [id number]# 1.00CD:127 Normal [facility] Ambulatory Visit Summaryon 0 02-10-2023 Ambulatory Visit Summary MARY DIAZ :1950 Visit Date:02/10/2023 Ambulatory Visit Instructions Your Care Team Attending Physician - Qamar SMITH MD Primary Care Physician - Yolande Monterroso [...] NOBLE, Lionel Burgos Where: [facility] Normal [facility] Physician Referralon 023 Physician Referral [id number] #1.00CD:127 Normal [facility] UroVysion Fish and Urine Cyt o ([facility])on 02-03-2023 UVFISH & UC Revision Information Invalid Interpretation Code [facility] Comment on above: Result Comment: Jimbo ection Reason -[ To Nur, 02/03/23 - 12:32 ] Corrected report issued to update PMS/PWS. The diagnosis remains unchanged. Correction Notes - Performed By: #### 1 [id number] ####[facility] [address] [place] [address] Operative Reporton Operative Report [id number] #1.00CD:127 Normal [facility] Ambulatory Visit Summaryon 0 01-20-2023 Ambulatory Visit [...] LUIS NOBLE, Qamar Burgos Where: General Surgery Nill/Greg Reilly Normal [address] [place] [address]- \.br\ You Need to Schedule the Following Appointments\.br \ Follow Up with DEVONTE NOBLE, Lionel Burgos, URL When: \.br\ Comments:\.br\ sched cysto\.br\ Where:\.br\ [facility] [address]br\ [place] [address]-\.br\ [phone]\.br\ Medications\.br\ What How Much When Instructions\.br \ New ciprofloxacin (Cipro 500 mg Tab) 1 Tablets By Mouth Every day take one tab day before procedure and one tab after procedure Pickup at [facility]/pharmacy #[id number]\.br\ Unchanged sildenafil (sildenafil 100 mg Tab) [...] if questions or concerns \.br\ Pharmacy Information\.br\ [facility]/pharmacy #[id number]: [address] [place], [place] [id number] [phone]\.br\ Allergies\.br\ Percocet 5/325\.br\ codeine (hives/rashes)\. br\ Problems\.br\ [...] these instructions at home:\.br\ ? \.br\ Take qiej-skh-ztoawgz and prescription medicines only as told by [...] Where to find more information\.br\ ? \.br\ [place] [employer] (ACS): cancer.org\.br\ ? \.br\ National Cancer [place] (NCI): cancer.gov\.br\ Contact a health care provider [...] based on the stage of your cancer.\.br\ [facility] Ambulatory Visit Summary MARY IDAZ :1950 Visit Date:01/20/2023 Ambulatory Visit Instructions Your [...] Reilly Normal [address] [place] [address] [place] [address]- \.br\ You Need to Schedule the Following Appointments\.br \ Follow Up with Lionel WHITNEY MD, URL When: \.br\ Comments:\.br\ sched cysto\.br\ Where:\.br\ [facility] [address]\.br\ [place] [address]-\.br\ [id number]\.br\ Medications\.br\ What How Much When Instructions\.br \ [...] these instructions at home:\.br\ ? \.br\ Take dvxn-eem-rhxrcpc and prescription medicines only as told by [...] Where to find more information\.br\ ? \.br\ [place] [employer] (ACS): cancer.org\.br\ ? \.br\ National [employer] [place] (NCI): cancer.gov\.br\ Contact a health care provider [...] to you by your health care pro [facility] Pathology Noteon 01-20-2023 Pathology Note [id number] #1.00CD:127 Normal [facility] Patient Educationon 01-21-20 23 Patient Education Oncology [...] Follow these instructions at home: ? Take qdrz-dqu-upsbldx and prescription medicines only as told by [...] important. Where to find more information ? [place] [employer] (ACS): cancer.org ? [employer] [place] (NCI): cancer.gov Contact a health care provider [...] wi (more content not included)... Normal [facility] Urology Office/Clinic Noteon 01-20-2023 Urology Office/Clinic [...] Urology [address], [place] [address] [phone] Additional Instructions: sched cysto Patient Education Bladder [...] Arthroplasty of th (more content not included)... [facility] Comment on above: Result Comment: Elec tronically Signed By: Lionel WHITNEY MD\.br\Date and Time Signed: 01/20/23 11:40 EDT\.br\Electronically Co-Signed By: Lilo Zhou\.br\Date and Time Co-Signed: 01/20/23 11:37 EDT Lab Reportson 01-11-2023 Lab Reports [id number] #1.00CD:127 [facility] Consent for Procedure/Surger yon 01-05-2023 Consent for Procedure/Surgery [id number]#1.00CD:127 [facility] Consent for Treatmenton 12-19 Consent for Treatment [id number] #1.00CD:127 [facility] IntraOperative Documentson 0 01-05-2023 IntraOperative Documents [id number]#1.00CD:127 [facility] Main OR Intraoperative Recor don 01-05-2023 Main OR Intraoperative Record IntraOp Document Type FTURO Summary Primary Physician: Lionel WHITNEY MD Finalized Date/Time: 01/05/23 10:57:53 Pt. Name: MARY DIAZ Sue Verma/Sex: 1950 Male Med Rec #: [id number] Physician: Lionel WHITNEY MD Financial #: [id number] Pt. Type: O Room/Bed: / Admit/Disch: 01/05/23 09:57:46 - Institution: Case Times FTURO Entry 1 Patient Times In Room 01/05/23 10:38:00 Out Room 01/05/23 10:54:00 Procedure Times Start 01/05/23 10:41:00 Stop 01/05/23 10:50:00 Anesthesia Times Last Modified By: Edgard ZELAYA, EDITHOR, Cheryl 01/05/23 10:51:01 Case Attendance FTURO Entry 1 Entry 2 Entry 3 Case Attendee Lionel WHITNEY MD RN, EDITHOR, Eulalia GROSS, Zora Luna Role Performed Surgeon - Primary Sink Maker - Primary Scrub - Primary Time In [...] PAULINA Rene RN, Ruthann 01/05/23 10:57 Normal [facility] Main OR Preoperative Recordo n 01-05-2023 Main OR Preoperative Record Holding Area Document Type FTURO Summary Primary Physician: Lionel WHITNEY MD Finalized Date/Time: 01/05/23 10:43:08 Pt. Name: EMILYMARY/Sex: 1950 Male Med Rec #: [id number] Physician: Lionel WHITNEY MD Financial #: [id number] Pt. Type: O Room/Bed: / Admit/Disch: 01/05/23 [...] ZELAYA, Cheryl GALLARDO Document Signatures Signed By: Fatemeh Cortes RNberly Reggie 01/05/23 10:16 Sophia ZELAYA, Nanci Paredes 01/05/23 10:13 Nanci Cortes RN 01/05/23 10:16 Nanci Cortes RN 01/05/23 10:15 Nanci Cortes RN 01/05/23 10:13 PAULINA Rene RN, Ruthann 01/05/23 10:43 Normal [facility] Operative Reporton Operative Report Patient: MARY DIAZ [...] tumor has developed in these areas.. Normal [facility] Comment on above: Result Comment: Elec tronically Signed By: WHITNEY MD, Lionel R\.br\Date and Time Signed: 01/05/23 10:59 EDT [facility] ([facility])on 01-05-2023 [facility] Method of Extraction Bladder Wash Normal [facility] Comment on above: Performed By: #### 1 [id number] ####[facility] [address] [facility] [place] [address] [facility] Number of Jars 1 Invalid Interpretation Code [facility] Comment on above: Performed By: #### 1 [id number] ####[facility] [address] [place] [address] [facility] Specimen Urine Normal [facility] Comment on above: Performed By: #### 1 [id number] ####[facility] [id number] [place] [address] [facility] Type of Service Technical Only Normal [facility] Comment on above: Performed By: #### 1 [id number] ####[facility] [address] [facility] [place] [address] MR lumbar spine wo conon MR lumbar spine wo con [place] [address] MRI Report Signed Patient: Mary Diaz MR#: [id number] : 1950 Acct:[id number] Age/Sex: 72 / M ADM Date: 01/01/23 Loc: Room: Type: [facility] [...] Jamaica Alas M.D.01/01/2023 2:48 PM Dictation Location: [place] [address] Transcribed By: [facility] 01/01/23 4188 Dictated By: Jamaica Alas II, MD 01/01/23 1441 Signed By: 01/01/23 1448 Normal [facility] Retail - Clinical Noteon Retail - Clinical Note [id number] #1.00CD:127 Normal [facility] XR CSPINE MIN 4 VIEWSon 05-0 XR [...] by: ALLI CORTES Date: 2022-10-23 11:53 Normal [facility] XR LSPINE W_OBLS AND FLEX_EX Ton 10-23-2022 XR LSPINE W_OBLS AND FLEX_EXT EXAM: XR LSPINE W_OBLS AND FLEX_EXT HISTORY: Low back pain COMPARISON: None. TECHNIQUE: 2 views Findings/impression: Retrolisthesis of L2 over L3 by 4 mm. Multilevel endplate degenerative changes, disc disease, and anterior spurring. Calcified atherosclerotic disease of aorta. No acute fracture. Electronically authenticated by: JAMAICA GONZALEZ Date: 2022-10-23 13:18 Normal [facility] BNPon 10-06-2022 Natriuretic peptide B (Bld) [Mass/Vol] 844.0 pg/mL Normal <=900.0 [facility] Comment on above: Performed By: #### [facility] #### [facility] [address] [place] [address] Dr. Johnna Dixon CBC AUTO DIFFon 10-06-2022 BASO # 0.0 103/ul Normal 0.0-0.1 [facility] Comment on above: Performed By: #### C BC #### [facility] [address] [place] [address] Dr. Johnna Dixon Basophils/100 WBC (Bld) 0.0 % Critically low 0.2-2.0 [facility] Comment on above: Performed By: #### C BC #### [facility] [address] [place] [address] Dr. Johnna Dixon EO # 0.0 103/ul Normal 0.0-0.7 [facility] Comment on above: Performed By: #### C BC #### [facility] [address] [place] [address] Dr. Johnna Dixon Eosinophils/100 WBC (Bld) 0.0 % Critically low 0.9-7.0 [facility] Comment on above: Performed By: #### C BC #### [facility] [address] [place] [address] Dr. Johnna Dixon Erythrocyte distribution width (RBC) [Ratio] 13.9 % Normal 11.0-15.0 [facility] Comment on above: Performed By: #### C BC #### [facility] [address] [place] [address] Dr. Johnna Dixon Hematocrit (Bld) [Volume fraction] 33.6 % Critically low 42.0-54.0 [facility] Comment on above: Performed By: #### C BC #### [facility] [address] [place] [address] Dr. Johnna Dixon Hemoglobin (Bld) [Mass/Vol] 11.1 g/dL Critically low 14.0-18.0 [facility] Comment on above: Performed By: #### C BC #### [facility] [address] [place] [address] Dr. Johnna Dixon IG # 0.03 10e3/ul Normal 0.00-0.03 [facility] Comment on above: Performed By: #### C BC #### [facility] [address] [place] [address] Dr. Johnna Dixon IG % 0.5 % Normal 0.0-0.5 [facility] Comment on above: Performed By: #### C BC #### [facility] [address] [place] [address] Dr. Johnna Dixon LYMPH # 0.7 103/ul Critically low 1.2-3.8 [facility] Comment on above: Performed By: #### C BC #### [facility] [address] [place] [address] Dr. Johnna Dixon Lymphocytes/100 WBC (Bld) 11.5 % Critically low 20.5-60.0 [facility] Comment on above: Performed By: #### C BC #### [facility] [address] [place] [address] Dr. Johnna Dixon MANUAL DIFF REQ NO Normal [facility] Comment on above: Performed By: #### C BC #### [facility] [address] [place] [address] Dr. Johnna Dixon MCH (RBC) [Entitic mass] 31.0 pg Normal 25.9-34.0 [facility] Comment on above: Performed By: #### C BC #### [facility] [address] [place] [address] Dr. Johnna Dixon MCHC (RBC) [Mass/Vol] 33.0 g/dL Normal 29.9-35.2 [facility] Comment on above: Performed By: #### C BC #### [facility] [address] [place] [address] Dr. Johnna Dixon MCV (RBC) [Entitic vol] 93.9 fL Normal 80.0-94.0 [facility] Comment on above: Performed By: #### C BC #### [facility] [address] [place] [address] Dr. Johnna Dixon MONO # 0.3 103/ul Normal 0.3-0.8 [facility] Comment on above: Performed By: #### C BC #### [facility] [address] [place] [address] Dr. Johnna Dixon Monocytes/100 WBC (Bld) 4.5 % Normal 1.7-12.0 [facility] Comment on above: Performed By: #### C BC #### [facility] [address] [address] [address] Johnna Dixon NEUT # 5.0 103/ul Normal 1.4-6.5 [facility] Comment on above: Performed By: #### C BC #### [facility] [address] [place] [address] [address] Johnna Dixon Neutrophils/100 WBC (Bld) 83.5 % Critically high 43.0-75.0 [facility] Comment on above: Performed By: #### C BC #### [facility] [address] [address] [address] Johnna Dixon Platelet mean volume (Bld) [Entitic vol] 10.3 fL Normal 9.5-13.5 [facility] Comment on above: Performed By: #### C BC #### [facility] [address] [place] [address] Dr. Johnna Dixon PLT 184 103/ul Normal 150-450 [facility] Comment on above: Performed By: #### C BC #### [facility] [address] [place] [address] Dr. Johnna Dixon RBC 3.58 106/ul Critically low 4.70-6.10 [facility] Comment on above: Performed By: #### C BC #### [facility] [address] [place] [address] Dr. Johnna Dixon WBC 6.0 103/ul Normal 4.0-11.0 [facility] Comment on above: Performed By: #### C BC #### [facility] [address] [place] [address] Dr. Johnna Dixon PROF 14(COMP METB)on 023 Albumin [Mass/Vol] 2.7 g/dL Critically low 3.4-5.0 [facility] Comment on above: Performed By: #### C VDTBH #### [facility] [address] [place] [address] Dr. Johnna Dixon Albumin/Globulin [Mass ratio] 0.9 {ratio} Normal [facility] Comment on above: Performed By: #### C VDTBH #### [facility] [address] [place] [address] [address] Johnna Dixon ALP [Catalytic activity/Vol] 32 U/L Critically low 46-116 [facility] Comment on above: Performed By: #### C VDTBH #### [facility] [address] [address] [address] Johnna Dixon ALT [Catalytic activity/Vol] 19 U/L Normal 16-63 [facility] Comment on above: Performed By: #### C VDTBH #### [facility] [address] [address] [address] Johnna Dixon Anion gap [Moles/Vol] 14.0 mmol/L Normal [facility] Comment on above: Performed By: #### C VDTBH #### [facility] [address] [address] [address] Johnna Dixon AST [Catalytic activity/Vol] 12 U/L Critically low 15-37 [facility] Comment on above: Performed By: #### C VDTBH #### [facility] [address] [address] [address] Johnna Dixon Bilirubin [Mass/Vol] 0.6 mg/dL Normal 0.2-1.0 [facility] Comment on above: Performed By: #### C VDTBH #### [facility] [address] [address] [address] Johnna Dixon Calcium [Mass/Vol] 8.3 mg/dL Critically low 8.5-10.1 [facility] Comment on above: Performed By: #### C VDTBH #### [facility] [address] [address] [address] Johnna Dixon Chloride [Moles/Vol] 107 mmol/L Normal 98-107 [facility] Comment on above: Performed By: #### C VDTBH #### [facility] [address] [address] [address] Johnna Dixon CO2 [Moles/Vol] 24.9 mmol/L Normal 21.0-32.0 [facility] Comment on above: Performed By: #### C VDTBH #### [facility] [address] [address] [address] Johnna Dixon Creatinine [Mass/Vol] 1.20 mg/dL Normal 0.70-1.30 [facility] Comment on above: Performed By: #### C VDTBH #### [facility] [address] [address] [address] Johnna Dixon EGFR-AF BRUNEIAN >60 Normal >=60 [facility] Comment on above: Performed By: #### C VDTBH #### [facility] [address] [address] [address] Johnna Dixon EGFR-NON AF BRUNEIAN 60 mL/min/1.73m2 Normal >=60 [facility] Comment on above: Performed By: #### C VDTBH #### [facility] [address] [place] [address] [address] Johnna Dixon Globulin (S) [Mass/Vol] 2.9 g/dL Normal [facility] Comment on above: Performed By: #### C VDTBH #### [facility] [address] [address] [address] Johnna Dixon Glucose [Mass/Vol] 153 mg/dL Critically high 74-106 [facility] Comment on above: Performed By: #### C VDTBH #### [facility] [address] [address] [address] Johnna Dixon Potassium [Moles/Vol] 3.9 mmol/L Normal 3.5-5.1 [facility] Comment on above: Performed By: #### C VDTBH #### [facility] [address] [address] [address] Johnna Dixon Protein [Mass/Vol] 5.6 g/dL Critically low 6.4-8.2 Th [facility] Comment on above: Performed By: #### C VDTBH #### [facility] [address] [place] [address] [address] Johnna Dixon Sodium [Moles/Vol] 142 mmol/L Normal 136-145 [facility] Comment on above: Performed By: #### C VDTBH #### [facility] [address] [place] [address] Dr. Johnna Dixon Urea nitrogen [Mass/Vol] 14.0 mg/dL Normal 7.0-18.0 [facility] Comment on above: Performed By: #### C VDTBH #### [facility] [address] [place] [address] Dr. Johnna Dixon Urea nitrogen/Creatinine [Mass ratio] 11.7 mg/mg Normal [facility] Comment on above: Performed By: #### C VDTBH #### [facility] [address] [place] [address] Dr. Johnna Dixon CBC AUTO DIFFon 10-05-2022 BASO # 0.0 103/ul Normal 0.0-0.1 [facility] Comment on above: Performed By: #### S PUTGS #### [facility] [address] [place] [address] Dr. Johnna Dixon Basophils/100 WBC (Bld) 0.2 % Normal 0.2-2.0 [facility] Comment on above: Performed By: #### S PUTGS #### [facility] [address] [place] [address] Dr. Johnna Dixon EO # 0.0 103/ul Normal 0.0-0.7 [facility] Comment on above: Performed By: #### S PUTGS #### [facility] [address] [place] [address] Dr. Johnna Dixon Eosinophils/100 WBC (Bld) 0.2 % Critically low 0.9-7.0 [facility] Comment on above: Performed By: #### S PUTGS #### [facility] [address] [place] [address] Dr. Johnna Dixon Erythrocyte distribution width (RBC) [Ratio] 14.1 % Normal 11.0-15.0 [facility] Comment on above: Performed By: #### S PUTGS #### [facility] [address] [place] [address] Dr. Johnna Dixon Hematocrit (Bld) [Volume fraction] 39.9 % Critically low 42.0-54.0 [facility] Comment on above: Performed By: #### S PUTGS #### [facility] [address] [place] [address] Dr. Johnna Dixon Hemoglobin (Bld) [Mass/Vol] 12.8 g/dL Critically low 14.0-18.0 [facility] Comment on above: Performed By: #### S PUTGS #### [facility] [address] [place] [address] Dr. Johnna Dixon IG # 0.01 10e3/ul Normal 0.00-0.03 [facility] Comment on above: Performed By: #### S PUTGS #### [facility] [address] [place] [address] Dr. Johnna Dixon IG % 0.2 % Normal 0.0-0.5 [facility] Comment on above: Performed By: #### S PUTGS #### [facility] [address] [place] [address] Dr. Johnna Dixon LYMPH # 0.7 103/ul Critically low 1.2-3.8 [facility] Comment on above: Performed By: #### S PUTGS #### [facility] [address] [place] [address] Dr. Johnna Dixon Lymphocytes/100 WBC (Bld) 14.3 % Critically low 20.5-60.0 [facility] Comment on above: Performed By: #### S PUTGS #### [facility] [address] [place] [address] Dr. Johnna Dixon MANUAL DIFF REQ NO Normal [facility] Comment on above: Performed By: #### S PUTGS #### [facility] [address] [place] [address] Dr. Johnna Dixon MCH (RBC) [Entitic mass] 30.7 pg Normal 25.9-34.0 [facility] Comment on above: Performed By: #### S PUTGS #### [facility] [address] [place] [address] Dr. Johnna Dixon MCHC (RBC) [Mass/Vol] 32.1 g/dL Normal 29.9-35.2 [facility] Comment on above: Performed By: #### S PUTGS #### [facility] [address] [place] [address] Dr. Johnna Dixon MCV (RBC) [Entitic vol] 95.7 fL Critically high 80.0-94.0 [facility] Comment on above: Performed By: #### S PUTGS #### [facility] [address] [place] [address] Dr. Johnna Dixon MONO # 0.6 103/ul Normal 0.3-0.8 [facility] Comment on above: Performed By: #### S PUTGS #### [facility] [address] [place] [address] Dr. Johnna Dixon Monocytes/100 WBC (Bld) 12.5 % Critically high 1.7-12.0 [facility] Comment on above: Performed By: #### S PUTGS #### [facility] [address] [place] [address] Dr. Johnna Dixon NEUT # 3.6 103/ul Normal 1.4-6.5 [facility] Comment on above: Performed By: #### S PUTGS #### [facility] [address] [place] [address] Dr. Johnna Dioxn Neutrophils/100 WBC (Bld) 72.6 % Normal 43.0-75.0 [facility] Comment on above: Performed By: #### S PUTGS #### [facility] [address] [place] [address] Dr. Johnna Dixon Platelet mean volume (Bld) [Entitic vol] 9.5 fL Normal 9.5-13.5 [facility] Comment on above: Performed By: #### S PUTGS #### [facility] [address] [place] [address] Dr. Johnna Dixon PLT 213 103/ul Normal 150-450 [facility] Comment on above: Performed By: #### S PUTGS #### [facility] [address] [place] [address] Dr. Johnna Dixon RBC 4.17 106/ul Critically low 4.70-6.10 [facility] Comment on above: Performed By: #### S PUTGS #### [facility] [address] [place] [address] Dr. Johnna Dixon WBC 5.0 103/ul Normal 4.0-11.0 [facility] Comment on above: Performed By: #### S PUTGS #### [facility] [address] [place] [address] Dr. Johnna iDxon CULTURE BLOODon 10-05-2022 Microscopic examination of blood, culture Culture Observations: NO GROWTH AT 5 DAYS. Normal [facility] Comment on above: Performed By: #### B LDCX2 #### [facility] [address] [place] [address] Dr. Johnna Dixon Microscopic examination of blood, culture Culture Observations: NO GROWTH AT 5 DAYS. Normal [facility] Comment on above: Performed By: #### S PUTGS #### [facility] [address] [place] [address] Dr. Johnna Dixon CULTURE SPUTUMon 10-05-2022 CULTURE SPUTUM Culture Observations: NORMAL RESPIRATORY JONATAN. Normal [facility] Comment on above: Performed By: #### S PUTGS #### [facility] [address] [place] [address] Dr. Johnna Dixon Covid-19 PCR [facility]on 09-19 SARS-CoV-2 (COVID-19) RNA REX+probe Ql (Unsp spec) Not detected Normal NOT DETECTED [facility] Comment on above: Result Comment: This test is not yet approved or cleared by the [place] FDA. When there are no FDA-approved or cleared tests available, and other criteria are met, FDA can make tests available under an emergency access mechanism called an Emergency Use Authorization (EUA). The EUA for this test is supported by the [place] of Health and Human Service's (HHS's) declaration [...] SARS-CoV-2. Performed By: #### C VDTB #### [facility] [address] [place] [address] Dr. Johnna Dixon LACTATE/LACTIC ACIDon 2022 Lactate [Moles/Vol] 1.2 mmol/L Normal 0.4-2.0 [facility] Comment on above: Performed By: #### L ACT #### [facility] [address] [place] [address] Dr. Johnna Dixon Lactate [Moles/Vol] 2.4 mmol/L Critically high 0.4-2.0 [facility] Comment on above: Performed By: #### L ACT #### [facility] [address] [place] [address] Dr. Johnna Dixon PROF CHEM 8 (BAS METB)on Anion gap [Moles/Vol] 12.6 mmol/L Normal [facility] Comment on above: Performed By: #### B MP #### [facility] [address] [place] [address] Dr. Johnna Dixon Calcium [Mass/Vol] 8.9 mg/dL Normal 8.5-10.1 [facility] Comment on above: Performed By: #### B MP #### [facility] [address] [place] [address] Dr. Johnna Dixon Chloride [Moles/Vol] 106 mmol/L Normal 98-107 [facility] Comment on above: Performed By: #### B MP #### [facility] [address] [place] [address] Dr. Johnna Dixon CO2 [Moles/Vol] 25.8 mmol/L Normal 21.0-32.0 [facility] Comment on above: Performed By: #### B MP #### [facility] [address] [place] [address] Dr. Johnna Dixon Creatinine [Mass/Vol] 1.41 mg/dL Critically high 0.70-1.30 [facility] Comment on above: Performed By: #### B MP #### [facility] [address] [address] [address] Johnna Dixon EGFR-AF BRUNEIAN >60 Normal >=60 [facility] Comment on above: Performed By: #### B MP #### [facility] [address] [address] [address] Johnna Dixon EGFR-NON AF BRUNEIAN 50 mL/min/1.73m2 Critically low >=60 [facility] Comment on above: Performed By: #### B MP #### [facility] [address] [address] [address] Johnna Dixon Glucose [Mass/Vol] 111 mg/dL Critically high 74-106 [facility] Comment on above: Performed By: #### B MP #### [facility] [address] [address] [address] Johnna Dixon Potassium [Moles/Vol] 3.4 mmol/L Critically low 3.5-5.1 [facility] Comment on above: Performed By: #### B MP #### [facility] [address] [address] [address] Johnna Dixon Sodium [Moles/Vol] 141 mmol/L Normal 136-145 [facility] Comment on above: Performed By: #### B MP #### [facility] [address] [address] [address] Johnna Dixon Urea nitrogen [Mass/Vol] 17.0 mg/dL Normal 7.0-18.0 [facility] Comment on above: Performed By: #### B MP #### [facility] [address] [address] [address] Johnna Dixon Urea nitrogen/Creatinine [Mass ratio] 12.1 mg/mg Normal [facility] Comment on above: Performed By: #### B MP #### [facility] [address] [place] [address] Dr. Johnna Dixon SPUTUM GRAM STAINon 10-06-19 COMMENTS Normal [facility] Comment on above: Performed By: #### S PUTGS #### [facility] [address] [place] [address] Dr. Johnna Dixon DIPHTHEROIDS Normal [facility] Comment on above: Performed By: #### S PUTGS #### [facility] [address] [place] [address] Dr. Johnna Dixon EPITHELIALS <25 Normal [facility] Comment on above: Performed By: #### S PUTGS #### [facility] [address] [address] [address] Johnna Dixon FUNGAL ELEMENTS Normal [facility] Comment on above: Performed By: #### S PUTGS #### [facility] [address] [place] [address] Dr. Johnna Dixon GRAM NEG BACILLI FEW [facility] Comment on above: Performed By: #### S PUTGS #### [facility] [address] [place] [address] Dr. Johnna MILLS NEG DIPPLOCOCCI Normal [facility] Comment on above: Performed By: #### S PUTGS #### [facility] [address] [place] [address] Dr. Johnna Dixon GRAM POS BACILLI Normal [facility] Comment on above: Performed By: #### S PUTGS #### [facility] [address] [place] [address] Dr. Johnna Dixon GRAM POSITIVE COCCI FEW Normal [facility] Comment on above: Performed By: #### S PUTGS #### [facility] [address] [place] [address] Dr. Johnna Dixon WBC (Bld) [#/Vol] 10*3/uL Normal [facility] Comment on above: Performed By: #### S PUTGS #### [facility] [address] [place] [address] Dr. Johnna Dixon SYMPTOMATIC COVID-19 ANTIGEN on 10-05-2022 EUA Statement SEE BELOW Normal [facility] Comment on above: Result Comment: [...] sooner. Performed By: #### C VDAGS #### [facility] [address] [place] [address] Dr. Johnna Dixon SARS-CoV-2 (COVID-19) RNA REX+probe Ql (Unsp spec) Negative Normal NEGATIVE [facility] Comment on above: Performed By: #### C VDAGS #### [facility] [address] [place] [address] Dr. Johnna Dixon XR CHEST 1 Von [...] SOCORRO SERRANO Date: 2022-10-05 11:44 Normal [facility] US SINGLE QUAD RT UPPERon US [...] SOCORRO HUFFMAN Date: 2022-09-24 09:46 Normal [facility] AMYLASEon 09-21-2022 Amylase [Catalytic activity/Vol] 78 U/L Normal 25-115 [facility] Comment on above: Performed By: #### C VDTBH #### [facility] [address] [place] [address] Dr. Johnna Dixon CBC AUTO DIFFon 09-21-2022 BASO # 0.0 103/ul Normal 0.0-0.1 [facility] Comment on above: Performed By: #### C VDTBH #### [facility] [address] [place] [address] Dr. Johnna Dixon Basophils/100 WBC (Bld) 0.5 % Normal 0.2-2.0 [facility] Comment on above: Performed By: #### C VDTBH #### [facility] [address] [place] [address] Dr. Johnna Dixon EO # 0.1 103/ul Normal 0.0-0.7 [facility] Comment on above: Performed By: #### C VDTBH #### [facility] [address] [place] [address] Dr. Johnna Dixon Eosinophils/100 WBC (Bld) 1.9 % Normal 0.9-7.0 [facility] Comment on above: Performed By: #### C VDTBH #### [facility] [address] [place] [address] Dr. Johnna Dixon Erythrocyte distribution width (RBC) [Ratio] 14.5 % Normal 11.0-15.0 [facility] Comment on above: Performed By: #### C VDTBH #### [facility] [address] [place] [address] Dr. Johnna Dixon Hematocrit (Bld) [Volume fraction] 39.1 % Critically low 42.0-54.0 [facility] Comment on above: Performed By: #### C VDTBH #### [facility] [address] [place] [address] Dr. Johnna Dixon Hemoglobin (Bld) [Mass/Vol] 12.8 g/dL Critically low 14.0-18.0 [facility] Comment on above: Performed By: #### C VDTBH #### [facility] [address] [place] [address] Dr. Johnna Dixon IG # 0.05 10e3/ul Critically high 0.00-0.03 [facility] Comment on above: Performed By: #### C VDTBH #### [facility] [address] [place] [address] Dr. Johnna Dixon IG % 0.7 % Critically high 0.0-0.5 [facility] Comment on above: Performed By: #### C VDTBH #### [facility] [address] [place] [address] Dr. Johnna Dixon LYMPH # 2.0 103/ul Normal 1.2-3.8 [facility] Comment on above: Performed By: #### C VDTBH #### [facility] [address] [place] [address] Dr. Johnna Dixon Lymphocytes/100 WBC (Bld) 27.4 % Normal 20.5-60.0 [facility] Comment on above: Performed By: #### C VDTBH #### [facility] [address] [place] [address] Dr. Johnna Dixon MANUAL DIFF REQ NO Normal [facility] Comment on above: Performed By: #### C VDTBH #### [facility] [address] [place] [address] Dr. Johnna Dixon MCH (RBC) [Entitic mass] 31.3 pg Normal 25.9-34.0 [facility] Comment on above: Performed By: #### C VDTBH #### [facility] [address] [place] [address] Dr. Johnna Dixon MCHC (RBC) [Mass/Vol] 32.7 g/dL Normal 29.9-35.2 [facility] Comment on above: Performed By: #### C VDTBH #### [facility] [address] [place] [address] Dr. Johnna Dixon MCV (RBC) [Entitic vol] 95.6 fL Critically high 80.0-94.0 [facility] Comment on above: Performed By: #### C VDTBH #### [facility] [address] [place] [address] Dr. Johnna Dixon MONO # 0.5 103/ul Normal 0.3-0.8 [facility] Comment on above: Performed By: #### C VDTBH #### [facility] [address] [place] [address] Dr. Johnna Dixon Monocytes/100 WBC (Bld) 6.9 % Normal 1.7-12.0 [facility] Comment on above: Performed By: #### C VDTBH #### [facility] [address] [place] [address] Dr. Johnna Dixon NEUT # 4.7 103/ul Normal 1.4-6.5 [facility] Comment on above: Performed By: #### C VDTBH #### [facility] [address] [place] [address] Dr. Johnna Dixon Neutrophils/100 WBC (Bld) 62.6 % Normal 43.0-75.0 [facility] Comment on above: Performed By: #### C VDTBH #### [facility] [address] [place] [address] Dr. Johnna Dixon Platelet mean volume (Bld) [Entitic vol] 9.3 fL Critically low 9.5-13.5 [facility] Comment on above: Performed By: #### C VDTBH #### [facility] [address] [place] [address] Dr. Johnna Dixon PLT 235 103/ul Normal 150-450 [facility] Comment on above: Performed By: #### C VDTBH #### [facility] [address] [place] [address] Dr. Johnna Dixon RBC 4.09 106/ul Critically low 4.70-6.10 [facility] Comment on above: Performed By: #### C VDTBH #### [facility] [address] [place] [address] Dr. Johnna Dixon WBC 7.4 103/ul Normal 4.0-11.0 [facility] Comment on above: Performed By: #### C VDTBH #### [facility] [address] [place] [address] Dr. Johnna Dixon LIPASEon 09-21-2022 Lipase [Catalytic activity/Vol] 114.0 U/L Normal 73.0-393.0 [facility] Comment on above: Performed By: #### C VDAGS #### [facility] [address] [place] [address] Dr. Johnna Dixon LIVER PROFILEon 09-21-2022 Albumin [Mass/Vol] 3.9 g/dL Normal 3.4-5.0 [facility] Comment on above: Performed By: #### C VDTBH #### [facility] [address] [place] [address] Dr. Johnna Dixon Albumin/Globulin [Mass ratio] 1.6 {ratio} Normal [facility] Comment on above: Performed By: #### C VDTBH #### [facility] [address] [place] [address] Dr. Johnna Dixon ALP [Catalytic activity/Vol] 59 U/L Normal 46-116 [facility] Comment on above: Performed By: #### C VDTBH #### [facility] [address] [place] [address] Dr. Johnna Dixon ALT [Catalytic activity/Vol] 23 U/L Normal 16-63 [facility] Comment on above: Performed By: #### C VDTBH #### [facility] [address] [place] [address] Dr. Johnna Dixon AST [Catalytic activity/Vol] 8 U/L Critically low 15-37 [facility] Comment on above: Performed By: #### C VDTBH #### [facility] [address] [place] [address] Dr. Johnna Dixon BILI, CONJUGATED 0.1 mg/dL Normal 0.0-0.2 [facility] Comment on above: Performed By: #### C VDTBH #### [facility] [address] [place] [address] Dr. Johnna Dixon Bilirubin [Mass/Vol] 0.3 mg/dL Normal 0.2-1.0 [facility] Comment on above: Performed By: #### C VDTBH #### [facility] [address] [place] [address] Dr. Johnna Dixon Globulin (S) [Mass/Vol] 2.5 g/dL Normal [facility] Comment on above: Performed By: #### C VDTBH #### [facility] [address] [place] [address] Dr. Johnna Dixon Protein [Mass/Vol] 6.4 g/dL Normal 6.4-8.2 [facility] Comment on above: Performed By: #### C VDTBH #### [facility] [address] [place] [address] Dr. Johnna Dixon PROF CHEM 8 (BAS METB)on Anion gap [Moles/Vol] 13.4 mmol/L Normal [facility] Comment on above: Performed By: #### C VDTBH #### [facility] [address] [place] [address] Dr. Johnna Dixon Calcium [Mass/Vol] 8.9 mg/dL Normal 8.5-10.1 [facility] Comment on above: Performed By: #### C VDTBH #### [facility] [address] [place] [address] Dr. Johnna Dixon Chloride [Moles/Vol] 106 mmol/L Normal 98-107 [facility] Comment on above: Performed By: #### C VDTBH #### [facility] [address] [place] [address] Dr. Johnna Dixon CO2 [Moles/Vol] 25.6 mmol/L Normal 21.0-32.0 [facility] Comment on above: Performed By: #### C VDTBH #### [facility] [address] [place] [address] Dr. Johnna Dixon Creatinine [Mass/Vol] 1.21 mg/dL Normal 0.70-1.30 [facility] Comment on above: Performed By: #### C VDTBH #### [facility] [address] [address] [address] Johnna Dixon EGFR-AF BRUNEIAN >60 Normal >=60 [facility] Comment on above: Performed By: #### C VDTBH #### [facility] [address] [place] [address] Dr. Johnna Dixon EGFR-NON AF BRUNEIAN 59 mL/min/1.73m2 Critically low >=60 [facility] Comment on above: Performed By: #### C VDTBH #### [facility] [address] [place] [address] Dr. Johnna Dixon Glucose [Mass/Vol] 115 mg/dL Critically high 74-106 [facility] Comment on above: Performed By: #### C VDTBH #### [facility] [address] [place] [address] Dr. Johnna Dixon Potassium [Moles/Vol] 4.0 mmol/L Normal 3.5-5.1 [facility] Comment on above: Performed By: #### C VDTBH #### [facility] [address] [place] [address] Dr. Johnna Dixon Sodium [Moles/Vol] 141 mmol/L Normal 136-145 [facility] Comment on above: Performed By: #### C VDTBH #### [facility] [address] [address] [address] Johnna Dixon Urea nitrogen [Mass/Vol] 19.0 mg/dL Critically high 7.0-18.0 [facility] Comment on above: Performed By: #### C VDTBH #### [facility] [address] [place] [address] Dr. Johnna Dixon Urea nitrogen/Creatinine [Mass ratio] 15.7 mg/mg Normal [facility] Comment on above: Performed By: #### C VDTBH #### [facility] [address] [address] [address] Johnna Dixon CREATININEon 08-04-2022 Creatinine [Mass/Vol] 1.31 mg/dL Critically high 0.70-1.30 [facility] Comment on above: Performed By: #### C JANIS #### [facility] [address] [address] [address] Johnna Dixon EGFR-AF BRUNEIAN >60 Normal >=60 [facility] Comment on above: Performed By: #### C JANIS #### [facility] [address] [place] [address] Dr. Johnna Dixon EGFR-NON AF BRUNEIAN 54 mL/min/1.73m2 Critically low >=60 [facility] Comment on above: Performed By: #### C JANIS #### [facility] [address] [place] [address] Dr. Johnna Dixon CTA NECK WO W [...] by: ALLI CORTES Date: 2022-08-04 14:04 Normal [facility] US CAROTID ART BILon 023 US [...] ALLI CORTES Date: 2022-07-28 12:00 Normal [facility] XR KNEE RT 4V or [...] DEBORAH ZARAGOZA Date: 2022-06-30 17:38 Normal [facility] XR RIBS RT PA Fab [...] SOCORRO SERRANO Date: 2022-05-25 14:51 Normal [facility] XR RIBS RT PA Fab [...] atelectasis and small pleural effusion Normal [facility] CT CHEST WO CONon 04-18-2022 [...] by: SOCORRO BANSAL Date: 2022-04-18 16:17 Normal [facility] CULTURE URINEon 03-12-2022 CULTURE URINE Culture Observations: NO GROWTH. Normal [facility] Comment on above: Performed By: #### S PUTGS #### [facility] [address] [address] [address] Johnna Dixon COVID-19 Positive/NegativeOr dered By: Lionel Whitney on 02-13-2022 SARS-CoV-2 (COVID-19) N gene REX+probe Ql (Resp) Negative Negative [facility] Comment on above: Testing for SARS-CoV -2 by RT-PCR This test was developed and its performance characteristics determined by [employer] and validated at the [facility]. This test has not been FDA [...] (PPP) [Time] 34.8 s 25.1-36.5 [facility] Basophils Auto (Bld) [#/Vol] Ordered By: Lionel Whitney on 02-06-2022 Basophils (Bld) [#/Vol] 0.0 10*3/uL 0.0-0.2 [facility] Basophils/100 WBC Auto (Bld) Ordered By: Lionel Whitney on 02-06-2022 Basophils/100 WBC (Bld) 0.8 % . [facility] Blood hemoglobin measurement (mass/volume)Ordered By: Lionel Whitney on 02-06-2022 Hemoglobin (Bld) [Mass/Vol] 13.2 g/dL 13.0-17.0 [facility] Blood leukocytes automated c ount (number/volume)Ordered By: Lionel Whitney on 02-06-2022 WBC (Bld) [#/Vol] 5.7 10*3/uL 4.5-11.0 [facility] Creatinine and Glomerular fi ltration rate.predicted panel (S/P/Bld)Ordered By: Lionel Whitney on 02-06-2022 Creatinine [Mass/Vol] 1.21 mg/dL 0.64-1.27 [facility] Eosinophils Auto (Bld) [#/Vo l]Ordered By: Lionel Whitney on 02-06-2022 Eosinophils (Bld) [#/Vol] 0.1 10*3/uL 0.0-0.45 [facility] Eosinophils/100 WBC Auto (Bl d)Ordered By: Lionel Whitney on 02-06-2022 Eosinophils/100 WBC (Bld) 1.7 % . [facility] Erythrocyte distribution wid th Auto (RBC) [Ratio]Ordered By: Lionel Whitney on 02-06-2022 Erythrocyte distribution width (RBC) [Ratio] 14.2 % 12.0-14.8 [facility] Estimated glomerular filtrat ion rate (GFR) non- AmericanOrdered By: Lionel Whitney on 02-06-2022 GFR/1.73 sq M.predicted among non-blacks MDRD (S/P/Bld) [Vol rate/Area] 59 mL/Min [facility] Hematocrit Auto (Bld) [Volum e fraction]Ordered By: Lionel Whitney on 02-06-2022 Hematocrit (Bld) [Volume fraction] 40.8 % 38.8-50.0 [facility] - CoagulationOrde red By: Lionel Whitney on 02-06-2022 PT Coag (PPP) [Time] 11.0 s 9.0-12.9 [facility] - Hematology and Cell countsOrdered By: Lionel Whitney on 02-06-2022 Nucleated RBC/100 WBC (Bld) [Ratio] 0.1 % 0-0.5 [facility] Lymphocytes Auto (Bld) [#/Vo l]Ordered By: Lionel Whitney on 02-06-2022 Lymphocytes (Bld) [#/Vol] 1.6 10*3/uL 1.00-4.8 [facility] Lymphocytes/100 WBC Auto (Bl d)Ordered By: Lionel Whitney on 02-06-2022 Lymphocytes/100 WBC (Bld) 27.4 % . [facility] MCH Auto (RBC) [Entitic mass ]Ordered By: Lionel Whitney on 02-06-2022 MCH (RBC) [Entitic mass] 29.7 pg 27.5-35.2 [facility] MCHC Auto (RBC) [Mass/Vol]Or dered By: Lionel Whitney on 02-06-2022 MCHC (RBC) [Mass/Vol] 32.4 g/dL 32.5-35.6 [facility] MCV Auto (RBC) [Entitic vol] Ordered By: Lionel Whitney on 02-06-2022 MCV (RBC) [Entitic vol] 91.6 fL 83.5-101 [facility] Monocytes Auto (Bld) [#/Vol] Ordered By: Lionel Whitney on 02-06-2022 Monocytes (Bld) [#/Vol] 0.5 10*3/uL 0.0-0.8 [facility] Monocytes/100 WBC Auto (Bld) Ordered By: Lionel Whitney on 02-06-2022 Monocytes/100 WBC (Bld) 8.7 % . [facility] Neutrophils Auto (Bld) [#/Vo l]Ordered By: Lionel Whitney on 02-06-2022 Neutrophils (Bld) [#/Vol] 3.5 10*3/uL 1.8-7.7 [facility] Neutrophils/100 WBC Auto (Bl d)Ordered By: Lionel Whitney on 02-06-2022 Neutrophils/100 WBC (Bld) 61.4 % . [facility] No Panel InformationOrdered By: Lionel Whitney on 02-06-2022 Estimated GFR () > 60 mL/Min [facility] Comment on above: GFR estimated refere nce range: According to KDOQI guidelines, <60 ml/min/1.73m2 is sufficient to diagnose a patient with chronic kidney disease. Pharmacy Creatinine Clearance (Chem N/A [facility] Platelet mean volume Auto (B ld) [Entitic vol]Ordered By: Lionel Whitney on 02-06-2022 Platelet mean volume (Bld) [Entitic vol] 8.4 fL 6.6-10.1 [facility] Platelet poor plasma interna tional normalized ratio (INR) by coagulation assay (relatOrdered By: Lionel Whitney on 02-06-2022 INR Coag (PPP) [Relative time] 1.0 {INR} [facility] Comment on above: INR Therapeutic Rang [...] (Bld) [#/Vol] 248 10*3/uL 150-450 [facility] RBC Auto (Bld) [#/Vol]Ordere d By: Lionel Whitney on 02-06-2022 RBC (Bld) [#/Vol] 4.45 10*6/uL 3.90-5.60 [facility] Serum or plasma calcium eliezer urement (mass/volume)Ordered By: Lionel Whitney on 02-06-2022 Calcium [Mass/Vol] 9.7 mg/dL 8.2-10.2 [facility] Serum or plasma chloride sammy surement (moles/volume)Ordered By: Lionel Whitney on 02-06-2022 Chloride [Moles/Vol] 99 mmol/L 95-114 [facility] Serum or plasma glucose eliezer urement (mass/volume)Ordered By: Lionel Whitney on 02-06-2022 Glucose [Mass/Vol] 99 mg/dL 70-100 [facility] Comment on above: ADA recommended refe rence range Random Glucose Reference Range is dependent on time and content of last meal. Glucose of more than 200 mg/dL in a nonstressed, ambulatory subject supports the diagnosis of Diabetes Mellitus. Serum or plasma potassium me asurement (moles/volume)Ordered By: Lionel Whitney on 02-06-2022 Potassium [Moles/Vol] 4.4 mmol/L 3.5-5.1 [facility] Serum or plasma sodium measu rement (moles/volume)Ordered By: Lionel Whitney on 02-06-2022 Sodium [Moles/Vol] 135 mmol/L 136-146 [facility] Serum or plasma total carbon dioxide measurement (moles/volume)Ordered By: Lionel Whitney on 02-06-2022 CO2 [Moles/Vol] 26.2 mmol/L 22.0-30.0 [facility] Serum or plasma urea nitroge n measurement (mass/volume)Ordered By: Lionel Whitney on 02-06-2022 Urea nitrogen [Mass/Vol] 20 mg/dL 9-23 [facility] COVID-19 Positive/NegativeOr dered By: Lionel Whitney on 10-27-2021 SARS-CoV-2 (COVID-19) N gene REX+probe Ql (Resp) Negative Negative [facility] Comment on above: Testing for SARS-CoV -2 by RT-PCR This test was developed and its performance characteristics determined by [employer] and validated at the [facility]. This test has not been FDA [...] (PPP) [Time] 36.2 s 25.1-36.5 [facility] Basophils Auto (Bld) [#/Vol] Ordered By: Lionel Whitney on 10-17-2021 Basophils (Bld) [#/Vol] 0.0 10*3/uL 0.0-0.2 [facility] Basophils/100 WBC Auto (Bld) Ordered By: Lionel Whitney on 10-17-2021 Basophils/100 WBC (Bld) 0.6 % [facility] Blood hemoglobin measurement (mass/volume)Ordered By: Lionel Whitney on 10-17-2021 Hemoglobin (Bld) [Mass/Vol] 13.6 g/dL 13.0-17.0 [facility] Blood leukocytes automated c ount (number/volume)Ordered By: Lionel Whitney on 10-17-2021 WBC (Bld) [#/Vol] 5.9 10*3/uL 4.5-11.0 [facility] Creatinine and Glomerular fi ltration rate.predicted panel (S/P/Bld)Ordered By: Lionel Whitney on 10-17-2021 Creatinine [Mass/Vol] 0.96 mg/dL 0.64-1.27 [facility] Eosinophils Auto (Bld) [#/Vo l]Ordered By: Lionel Whitney on 10-17-2021 Eosinophils (Bld) [#/Vol] 0.1 10*3/uL 0.0-0.45 [facility] Eosinophils/100 WBC Auto (Bl d)Ordered By: Lionel Whitney on 10-17-2021 Eosinophils/100 WBC (Bld) 2.0 % [facility] Erythrocyte distribution wid th Auto (RBC) [Ratio]Ordered By: Lionel Whitney on 10-17-2021 Erythrocyte distribution width (RBC) [Ratio] 14.5 % 12.0-14.8 [facility] Estimated glomerular filtrat ion rate (GFR) non- AmericanOrdered By: Lionel Whitney on 10-17-2021 GFR/1.73 sq M.predicted among non-blacks MDRD (S/P/Bld) [Vol rate/Area] > 60 mL/Min [facility] Hematocrit Auto (Bld) [Volum e fraction]Ordered By: Lionel Whitney on 10-17-2021 Hematocrit (Bld) [Volume fraction] 41.5 % 38.8-50.0 [facility] - CoagulationOrde red By: Lionel Whitney on 10-17-2021 PT Coag (PPP) [Time] 11.0 s 9.0-12.9 [facility] - Hematology and Cell countsOrdered By: Lionel Whitney on 10-17-2021 Nucleated RBC/100 WBC (Bld) [Ratio] 0.0 % 0-0.5 [facility] Lymphocytes Auto (Bld) [#/Vo l]Ordered By: Lionel Whitney on 10-17-2021 Lymphocytes (Bld) [#/Vol] 1.6 10*3/uL 1.00-4.8 [facility] Lymphocytes/100 WBC Auto (Bl d)Ordered By: Lionel Whitney on 10-17-2021 Lymphocytes/100 WBC (Bld) 26.8 % [facility] MCH Auto (RBC) [Entitic mass ]Ordered By: Lionel Whitney on 10-17-2021 MCH (RBC) [Entitic mass] 29.3 pg 27.5-35.2 [facility] MCHC Auto (RBC) [Mass/Vol]Or dered By: Lionel Whitney on 10-17-2021 MCHC (RBC) [Mass/Vol] 32.7 g/dL 32.5-35.6 [facility] MCV Auto (RBC) [Entitic vol] Ordered By: Lionel Whitney on 10-17-2021 MCV (RBC) [Entitic vol] 89.8 fL 83.5-101 [facility] Monocytes Auto (Bld) [#/Vol] Ordered By: Lionel Whitney on 10-17-2021 Monocytes (Bld) [#/Vol] 0.6 10*3/uL 0.0-0.8 [facility] Monocytes/100 WBC Auto (Bld) Ordered By: Lionel Whitney on 10-17-2021 Monocytes/100 WBC (Bld) 10.6 % [facility] Neutrophils Auto (Bld) [#/Vo l]Ordered By: Lionel Whitney on 10-17-2021 Neutrophils (Bld) [#/Vol] 3.5 10*3/uL 1.8-7.7 [facility] Neutrophils/100 WBC Auto (Bl d)Ordered By: Lionel Whitney on 10-17-2021 Neutrophils/100 WBC (Bld) 60.0 % [facility] No Panel InformationOrdered By: Lionel Whitney on 10-17-2021 Estimated GFR () > 60 mL/Min [facility] Comment on above: GFR estimated refere nce range: According to KDOQI guidelines, <60 ml/min/1.73m2 is sufficient to diagnose a patient with chronic kidney disease. Pharmacy Creatinine Clearance (Chem N/A [facility] Platelet mean volume Auto (B ld) [Entitic vol]Ordered By: Lionel Whitney on 10-17-2021 Platelet mean volume (Bld) [Entitic vol] 8.3 fL 6.6-10.1 [facility] Platelet poor plasma interna tional normalized ratio (INR) by coagulation assay (relatOrdered By: Lionel Whitney on 10-17-2021 INR Coag (PPP) [Relative time] 1.0 {INR} [facility] Comment on above: INR Therapeutic Rang [...] (Bld) [#/Vol] 249 10*3/uL 150-450 [facility] RBC Auto (Bld) [#/Vol]Ordere d By: Lionel Whitney on 10-17-2021 RBC (Bld) [#/Vol] 4.62 10*6/uL 3.90-5.60 [facility] Serum or plasma calcium eliezer urement (mass/volume)Ordered By: Lionel Whitney on 10-17-2021 Calcium [Mass/Vol] 9.7 mg/dL 8.2-10.2 [facility] Serum or plasma chloride sammy surement (moles/volume)Ordered By: Lionel Whitney on 10-17-2021 Chloride [Moles/Vol] 101 mmol/L 95-114 [facility] Serum or plasma glucose eliezer urement (mass/volume)Ordered By: Lionel Whitney on 10-17-2021 Glucose [Mass/Vol] 87 mg/dL 70-100 [facility] Comment on above: ADA recommended refe rence range Random Glucose Reference Range is dependent on time and content of last meal. Glucose of more than 200 mg/dL in a nonstressed, ambulatory subject supports the diagnosis of Diabetes Mellitus. Serum or plasma potassium me asurement (moles/volume)Ordered By: Lionel Whitney on 10-17-2021 Potassium [Moles/Vol] 4.4 mmol/L 3.5-5.1 [facility] Serum or plasma sodium measu rement (moles/volume)Ordered By: Lionel Whitney on 10-17-2021 Sodium [Moles/Vol] 136 mmol/L 136-146 [facility] Serum or plasma total carbon dioxide measurement (moles/volume)Ordered By: Lionel Whitney on 10-17-2021 CO2 [Moles/Vol] 25.6 mmol/L 22.0-30.0 [facility] Serum or plasma urea nitroge n measurement (mass/volume)Ordered By: Lionel Whitney on 10-17-2021 Urea nitrogen [Mass/Vol] 18 mg/dL 9-23 [facility] Vital Signs Date Time Vital Sign Value Performing Clinician Facility 10-11-2023 15:27-0400 Body height 182.88 cm MD Yolande Monterroso Work Phone: [facility] 10-11-2023 15:27-0400 Body mass index (BMI) [Ratio] 25 kg/m2 MD Yolande Monterroso Work Phone: [facility] 10-11-2023 15:27-0400 Body temperature 97.2 [degF] MD Yolande Monterroso Work Phone: [facility] 10-11-2023 15:27-0400 Body weight 83.91 kg MD Yolande Monterroso Work Phone: [facility] 10-11-2023 15:27-0400 Diastolic blood pressure 88 mm[Hg] MD Yolande Monterroso Work Phone: [facility] 10-11-2023 15:27-0400 Heart rate 79 /min MD Yolande Monterroso Work Phone: [facility] 10-11-2023 15:27-0400 Systolic blood pressure 146 mm[Hg] MD Yolande Monterroso Work Phone: [facility] 10-04-2023 10:35-0400 Blood Pressure Location Lionel WHITNEY [facility] 10-04-2023 10:35-0400 Diastolic blood pressure 88 mm[Hg] Lionel WHITNEY [facility] 10-04-2023 10:35-0400 Heart rate 72 /min Lionel WHITNEY [facility] 10-04-2023 10:35-0400 Respiratory rate 16 /min Lionel WHITNEY [facility] 10-04-2023 10:35-0400 Systolic blood pressure 136 mm[Hg] Lionel WHITNEY [facility] 08-12-2023 11:10-0500 Body height 182.88 cm MD Yolande Monterroso Work Phone: [facility] 08-12-2023 11:10-0500 Body mass index (BMI) [Ratio] 24.3 kg/m2 MD Yolande Monterroso Work Phone: [facility] 08-12-2023 11:10-0500 Body weight 81.19 kg MD Yolande Monterroso Work Phone: [facility] 02-10-2023 14:16-0400 Blood Pressure Location Qamar BOWERSL [facility] 02-10-2023 14:16-0400 Diastolic blood pressure 80 mm[Hg] Qamar NILL [facility] 02-10-2023 14:16-0400 Heart rate 70 /min Qamar NILL [facility] 02-10-2023 14:16-0400 Respiratory rate 16 /min Qamar NILL [facility] 02-10-2023 14:16-0400 Systolic blood pressure 124 mm[Hg] Qamar BOWERSL [facility] 12-03-2022 10:20-0400 Body height 182.88 cm Zoran Chavez Other [facility] Other 12-03-2022 10:20-0400 Body mass index (BMI) [Ratio] 25.49 kg/m2 Zoran Chavez Other [facility] Other 12-03-2022 10:20-0400 Body weight 85.28 kg Zoran Chavez Other [facility] Other 10-22-2022 10:20-0400 Body height 182.88 cm Zoran Chavez Other [facility] Other 10-22-2022 10:20-0400 Body mass index (BMI) [Ratio] 25.63 kg/m2 Zoran Chavez Other [facility] Other 10-22-2022 10:20-0400 Body weight 85.73 kg Zoran Chavez Other [facility] Other 10-22-2022 10:20-0400 Diastolic blood pressure 80 mm[Hg] Zoran Chavez Other [facility] Other 10-22-2022 10:20-0400 Systolic blood pressure 110 mm[Hg] Zoran Chavez Other [facility] Other 02-24-2022 10:43-0400 Blood Pressure Location Lioneljameel WHITNEY [facility] 02-24-2022 10:43-0400 Diastolic blood pressure 80 mm[Hg] Lionel WHITNEY [facility] 02-24-2022 10:43-0400 Heart rate 65 /min Lionel WHITNEY [facility] 02-24-2022 10:43-0400 Respiratory rate 16 /min Lionel WHITNEY [facility] 02-24-2022 10:43-0400 Systolic blood pressure 140 mm[Hg] Lionel WHITNEY [facility] 02-17-2022 15:15-0400 Diastolic blood pressure 83 mm[Hg] MD Yolande Monterroso Work Phone: [facility] 02-17-2022 15:15-0400 Heart rate 58 /min MD Yolande Monterroso Work Phone: [facility] 02-17-2022 15:15-0400 Respiratory rate 16 /min MD Yolande Monterroso Work Phone: [facility] 02-17-2022 15:15-0400 SaO2% (BldA) [Mass fraction] 95 % MD Yolande Monterroso Work Phone: [facility] 02-17-2022 15:15-0400 Systolic blood pressure 166 mm[Hg] MD Yolande Monterroso Work Phone: [facility] 02-17-2022 14:30-0400 Body height 182.88 cm MD Yolande Monterroso Work Phone: [facility] 02-17-2022 14:30-0400 Body mass index (BMI) [Ratio] 26.2 kg/m2 MD Yolande Monterroso Work Phone: [facility] 02-17-2022 14:30-0400 Body weight 87.7 kg MD Yolande Monterroso Work Phone: [facility] 02-17-2022 14:17-0400 Body temperature 97.6 [degF] MD Yolande Monterroso Work Phone: [facility] 02-17-2022 13:52-0400 Inhaled oxygen flow rate 10 L/min MD Yolande Monterroso Work Phone: [facility] 10-17-2021 11:42-0400 Body height 180.34 cm MD Yolande Monterroso Work Phone: [facility] 10-17-2021 11:42-0400 Body mass index (BMI) [Ratio] 27 kg/m2 MD Yolande Monterroso Work Phone: [facility] 10-17-2021 11:42-0400 Body temperature 98.4 [degF] MD Yolande Monterroso Work Phone: [facility] 10-17-2021 11:42-0400 Body weight 88 kg MD Yolande Monterroso Work Phone: [facility] 10-17-2021 11:42-0400 Diastolic blood pressure 90 mm[Hg] MD Yolande Monterroso Work Phone: [facility] 10-17-2021 11:42-0400 Heart rate 64 /min MD Yolande Monterroso Work Phone: [facility] 10-17-2021 11:42-0400 SaO2% (BldA) [Mass fraction] 100 % MD Yolande Monterroso Work Phone: [facility] 10-17-2021 11:[id number] Systolic blood pressure 172 mm[Hg] MD Yolande Monterroso Work Phone: [facility] Encounters Encounter Date Encounter Type Care Provider Facility Start: 10-26-2023 End: 10-26-2023 ambulatory Lionel WHITNEY Facility:[facility] Start: 10-26-2023 End: 10-26-2023 Patient encounter procedure Lionel WHITNEY [facility] Start: 10-11-2023 End: 10-11-2023 ambulatory MD Yolande Monterroso Work Phone: [facility] Work Phone: Start: 10-11-2023 End: 10-11-2023 Patient encounter procedure MD Yolande Monterroso Work Phone: [facility] Work Phone: Start: 10-04-2023 End: 10-04-2023 ambulatory Lionel WHITNEY Facility:[facility] Start: 10-04-2023 End: 10-04-2023 Patient encounter procedure Lionel WHITNEY [facility] Start: 09-30-2023 End: 09-30-2023 ambulatory KELLY ORTIZ Not Available Start: 09-09-2023 End: 09-09-2023 ambulatory VASU GALEANO Not Available Start: 08-28-2023 End: 08-28-2023 ambulatory Yolande Monterroso Facility:[facility] Start: 08-28-2023 End: 08-28-2023 Patient encounter procedure MD Yolande Monterroso Work Phone: [facility] [place] Work Phone: Start: 08-12-2023 End: 08-12-2023 ambulatory Yolande Monterroso Facility:[facility] Start: 08-12-2023 End: 08-12-2023 ambulatory MD Yolande Monterroso Work Phone: [facility] Work Phone: Start: 08-12-2023 End: 08-12-2023 Patient encounter procedure MD Yolande Monterroso Work Phone: [facility] [place] Work Phone: Start: 08-12-2023 End: 08-12-2023 ambulatory MD Yolande Monterroso Work Phone: [facility] Work Phone: Start: 08-12-2023 End: 08-12-2023 Patient encounter procedure MD Yolande Monterroso Work Phone: [facility] Work Phone: Start: 07-26-2023 End: 07-27-2023 ambulatory Dereck Landa MD Facility:[facility] Start: 04-27-2023 End: 04-27-2023 ambulatory Lionel WHITNEY Facility:[facility] Start: 04-27-2023 End: 04-27-2023 Patient encounter procedure Lionel WHITNEY [facility] Start: 03-15-2023 End: 03-16-2023 ambulatory Dereck Landa MD Facility:[facility] Start: 03-10-2023 End: 03-10-2023 ambulatory Qamar SMITH Facility:[id number] Start: 02-10-2023 End: 02-10-2023 ambulatory Qamar SMITH Facility: [facility] Start: 02-10-2023 End: 02-10-2023 Patient encounter procedure Qamar SMITH [facility] Start: 01-20-2023 End: 01-20-2023 ambulatory Lionel WHITNEY Facility:[facility] Start: 01-14-2023 End: 01-14-2023 ambulatory Lionel WHITNEY Facility:CD:[id number] Start: 01-05-2023 End: 01-05-2023 ambulatory Lionel WHITNEY Facility:[facility] Start: 01-05-2023 End: 01-05-2023 Patient encounter procedure Lionel Burgos DEVONTE [facility] Start: 01-01-2023 End: 01-01-2023 ambulatory Yolande Monterroso Facility:[facility] Start: 01-01-2023 End: 01-01-2023 ambulatory MD Yolande Monterroso Work Phone: [facility] Work Phone: Start: 01-01-2023 End: 01-01-2023 Patient encounter procedure MD Yolande Monterroso Work Phone: [facility] [place] Work Phone: Start: 12-28-2022 End: 12-29-2022 ambulatory Dereck Landa MD Facility:[facility] Start: 12-14-2022 End: 12-15-2022 ambulatory Dereck Landa MD Facility:[facility] Start: 12-03-2022 End: 12-03-2022 ambulatory Zoran Chavez Other [facility] Other Start: 12-03-2022 Office outpatient visit 15 minutes Zoran Chavez [facility] Start: 11-20-2022 End: 11-21-2022 ambulatory DERECK LANDA Facility:[facility] Start: 10-28-2022 End: 10-29-[address] NELLY HERRERA Facility:[facility] Start: 10-27-2022 End: 11-18-[address] ZORAN CHAVEZ Facility:[facility] Start: 10-23-2022 End: 10-24-[address] ZORAN CHAVEZ Facility:[facility] Start: 10-22-2022 End: 10-22-2022 ambulatory Zoran Chavez Other [facility] Other Start: 10-22-2022 Office outpatient visit 15 minutes Zoran Chavez [facility] Start: 10-05-2022 End: 10-06-[address] YOLANDE MONTERROSO . Facility:[facility] Start: 09-24-2022 End: 09-25-[address] YOLANDE MONTERROSO . Facility:[facility] Start: 09-21-2022 End: 09-22-[address] LIONEL WHITNEY . Facility:[facility] Start: 09-21-2022 End: 09-21-2022 Patient encounter procedure Lionel WHITNEY [facility] Start: 08-19-2022 End: 08-20-[address] LIONEL WHITNEY . Facility:[facility] Start: 08-17-2022 End: 08-17-2022 Patient encounter procedure Lionel WHITNEY [facility] Start: 08-04-2022 End: 08-05-[address] YOLANDE MONTERROSO . Facility:[facility] Start: 07-28-2022 End: 07-29-[address] YOLANDE MONTERROSO . Facility:[facility] Start: 07-23-2022 End: 07-23-[address] LIONEL WHITNEY . Facility:[facility] Start: 07-20-2022 End: 07-20-2022 Patient encounter procedure Lionel WHITNEY [facility] Start: 07-07-2022 End: 07-07-2022 Patient encounter procedure Lionel WHITNEY [facility] Start: 06-30-2022 End: 07-01-[address] YOLANDE MONTERROSO . Facility:[facility] Start: 06-04-2022 End: 06-04-[address] YOLANDE MONTERROSO . Facility:[facility] Start: 05-25-2022 End: 05-26-[address] YOLANDE MONTERROSO . Facility:[facility] Start: 05-18-2022 End: 05-18-2022 Patient encounter procedure Lionel WHITNEY [facility] Start: 04-27-2022 End: 04-28-[address] YOLANDE MONTERROSO . Facility:[facility] Start: 04-18-2022 End: 04-18-[address] FELICIA GALDAMEZ . Facility:[facility] Start: 04-15-2022 End: 04-15-2022 Patient encounter procedure Lionel WHITNEY [facility] Start: 03-26-2022 End: 03-26-[address] LIONEL WHITNEY . Facility:[facility] Start: 03-12-2022 End: 03-13-[address] YOLANDE MONTERROSO . Facility:[facility] Start: 03-09-2022 End: 03-09-2022 Patient encounter procedure Lionel WHITNEY [facility] Start: 02-27-2022 End: 02-27-2022 Lab Drop off Lionel WHITNEY [facility] Start: 02-27-2022 End: 02-27-2022 Patient encounter procedure Lionel WHITNEY [facility] Start: 02-24-2022 End: 02-24-2022 Patient encounter procedure Lionel WHITNEY [facility] Start: 02-17-2022 End: 02-17-2022 Admission to same day surgery center MD Yolande Monterroso [facility] [place] Start: 02-13-2022 End: 02-13-2022 Patient encounter procedure MD Yolande Monterroso Work Phone: [facility] Start: 02-06-2022 End: 02-06-2022 Patient encounter procedure MD Yolande Monterroso Work Phone: [facility] Start: 11-11-2021 End: 11-11-2021 Patient encounter procedure Lionel WHITNEY [facility] Start: 11-05-2021 End: 11-05-2021 Patient encounter procedure Lionel WHITNEY [facility] Start: 10-29-2021 End: 10-29-2021 Admission to same day surgery center MD Yolande Monterroso Work Phone: [facility] [place] Start: 10-27-2021 End: 10-27-2021 Patient encounter procedure MD Yolande Monterroso Work Phone: [facility] Start: 10-17-2021 End: 10-17-2021 Patient encounter procedure MD Yolande Monterroso Work Phone: [facility] Procedures Date Procedure Procedure Detail Performing Clinician Start: 08-28-2023 MRI of cervical spin e with contrast MD Yolande Monterroso Work Phone: Start: 08-12-2023 X-ray of lumbar spin e, six views including bending views MD Yolande Monterroso Work Phone: Start: 08-12-2023 X-ray of cervical spine MD Yolande Monterroso Work Phone: Start: 04-27-2023 Transurethral cystoscopy Lionel WHITNEY Start: 01-14-2023 Transurethral resect ion of bladder neoplasm Lionel WHITNEY Start: 01-01-2023 MR lumbar spine wo con MD Yolande Monterroso Work Phone: Start: 09-21-[address] NELLY HERRERA Comment on above: Performed By: #### P SAD #### [facility] [address] [place] [address] Dr. Johnna Dixon Start: 02-17-2022 Transurethral resect [...] WHITNEY Comment on above: had recently at [facility] Start: 05-21-2014 Colonoscopy Qamar DOSS Start: 06-21-2010 Complete repair of r otator cuff Lionel WHITNEY Comment on above: right Start: 06-21-1998 Shoulder reconstruction Lionel WHITNEY Comment on above: left possibly a scre w in there per pt Start: 06-21-1964 Appendectomy Lionel STERLING Arthroplasty of the ankle Jose Alfredo WHITNEY Comment on above: 1990 Arthroscopy of knee Lionel WHITNEY Klippel-Feil sequenc e (disorder) Lionel WHITNEY Plan of Treatment Date Care Activity Detail Author Start: 10-09-2024 ambulatory Ambulatory Facility:[facility] Start: 08-12-2023 Patient referral [facility] Work Phone: Start: 08-12-2023 X-ray of cervical spine XR cer vical spine w flex/ext [facility] Start: 08-12-2023 X-ray of lumbar spin e, six views including bending views XR lumbar spine 6V w bending [facility] Start: 08-12-2023 XR Cervical spine Vi ews W flexion and W extension [facility] Start: 08-12-2023 XR Lumbar spine Views F [facility] Start: 02-17-2022 End: 02-17-2022 [facility] Work Phone: Start: 02-17-2022 Transurethral resect ion of bladder neoplasm OR Cysto/TURBT/Bladder Biopsy/Fulg (Not Applicable) [facility] Start: 02-17-2022 End: 02-17-2022 Admission to same day surgery center Departed Surgical Day Care [facility] [place] Start: 02-13-2022 End: 02-13-2022 Patient encounter procedure Departed Clinical [facility] Xfc-Gtq-Byietlbb Testing Microbial culture of sputum [facility] MR Cervical spine WO and W contrast IV [facility] Patient referral [facility] Work Phone: Immunizations Immunization Date Immunization Notes Care Provider Gary francisco 07-13-2023 zoster vaccine recombinant Lionel WHITNEY [facility] 03-23-2023 influenza virus vacc ine, unspecified formulation Lionel WHITNEY [facility] 03-23-2023 zoster vaccine recombinant Lionel WHITNEY [facility] 04-16-2022 SARS-CoV-2 (COVID-19 ) [id number] Qamar SMITH [facility] 03-27-2022 influenza virus vacc ine, unspecified formulation Qamar SMITH [facility] 05-06-2021 COVID-19 mRNA-1273 (Moderna) MD Yolande Monterroso Work Phone: [facility] 09-19-2020 COVID-19 mRNA-1273 (Moderna) MD Yolande Monterroso Work Phone: [facility] Comment on above: Result Comment: 2022: [id number] 08-22-2020 COVID-19 mRNA-1273 (Moderna) MD Yolande Monterroso Work Phone: [facility] Comment on above: Result Comment: 2022: [id number] 06-21-2020 SARS-CoV-2 (COVID-19 ) mRNA-1273 vaccine Lionel WHITNEY [facility] 05-23-2020 influenza virus vacc ine, unspecified formulation Qamar SMITH [facility] 04-03-2020 influenza virus vacc ine, unspecified formulation Qamar SMITH [facility] 05-29-2019 influenza virus vacc ine, unspecified formulation [employer] [facility] 04-14-2019 influenza, unspecifi ed formulation [employer] [facility] 09-26-2018 tetanus and diphther ia toxoids, adsorbed, preservative free, for adult use (2 Lf of tetanus toxoid and 2 Lf of diphtheria toxoid) [employer] [facility] 10-11-2017 pneumococcal polysaccharide vaccine, 23 valent [employer] [facility] 07-22-2016 pneumococcal conjuga te vaccine, 13 valent [employer] [facility] 06-29-2013 tetanus toxoid, redu mirtha diphtheria toxoid, and acellular pertussis vaccine, adsorbed [employer] [facility] 03-10-2000 Td(adult) unspecifie d formulation [employer] [facility] Payers Date Payer Category Payer Self-pay [id number] 2022 Unknown 1958 Medicare [id number] 1958 Unknown [id number] 2.16.840.1.435183.19 1951 Unknown [id number] 2.16.840.1.753532.3.579.2. 593 1951 Unknown [id number] 2.16.840.1.361808.3.579.2. 593 1951 Unknown [id number] 2.16.840.1.844766.3.579.2. 593 1951 Unknown [id number] 2.16.840.1.299687.3.579.2. 593 1951 Unknown [id number] 2.16.840.1.474045.3.579.2. 593 1951 Unknown [id number] 2.16.840.1.969517.3.579.2. 593 1951 Unknown [id number] 2.16.840.1.027291.3.579.2. 593 1951 Unknown [id number] 2.16.840.1.234026.3.579.2. 593 1951 Unknown [id number] 2.16.840.1.158564.3.579.2. 593 1951 Unknown [id number] 2.16.840.1.116712.3.579.2. 593 1951 Unknown [id number] 2.16.840.1.004062.3.579.2. 593 1951 Unknown [id number] 2.16.840.1.290729.3.579.2. 593 1951 Unknown [id number] 2.16.840.1.120896.3.579.2. 593 1951 Unknown [id number] 2.16.840.1.544425.3.579.2. 593 1951 Unknown [id number] 2.16.840.1.272038.3.579.2. 593 1951 Unknown [id number] 2.16.840.1.690968.3.579.2. 593 1951 Unknown [id number] 2.16.840.1.083565.3.579.2. 593 1951 Unknown [id number] 2.16.840.1.495569.3.579.2. 593 1951 Unknown [id number] 2.16.840.1.253469.3.579.2. 593 1951 Unknown [id number] 2.16.840.1.190101.3.579.2. 196 1951 Unknown [id number] 2.16.840.1.300960.3.579.2. 196 1951 Unknown [id number] 2.16.840.1.027833.3.579.2. 196 1951 Unknown [id number] 2.16.840.1.393763.3.579.2. 196 1951 Unknown [id number] 2.16.840.1.148149.3.579.2. 196 1951 Unknown [id number] 2.16.840.1.410888.3.579.2. 1259 1951 Unknown [id number] 2.16.840.1.186221.3.579.2. 1259 1951 Unknown [id number] 2.16.840.1.977317.3.579.2. 727 1951 Unknown [id number] 2.16.840.1.760186.3.579.2. 727 1951 Unknown [id number] 2.16.840.1.693422.3.579.2. 727 1951 Unknown [id number] 2.16.840.1.869190.3.579.2. 727 1951 Unknown [id number] 2.16.840.1.461225.3.579.2. 727 1951 Unknown [id number] 2.16.840.1.017726.3.579.2. 727 1951 Unknown [id number] 2.16.840.1.705580.3.579.2. 727 1951 Unknown [id number] 2.16.840.1.119679.3.579.2. 727 1951 Unknown [id number] 2.16.840.1.092327.3.579.2. 727 Medicare Medicare [id number] Private Health Insurance [id number] Unknown [facility] K [id number] Unknown [id number] 2.16.840.1.276349.3.579.2. 531 Unknown [id number] 2.16.840.1.230578.3.579.2. 531 Unknown [id number] 2.16.840.1.269717.3.579.2. 531 Social History Date Type Detail Facility Start: 10-17-2021 End: 10-04-2023 Tobacco smoking status NHIS Ex-smoker (finding) [facility] Comment on above: pt quit smoking 10+ yrs ago Start: 1950 Sex Assigned At Male F [facility] Start: 11-05-2021 Tobacco smoking status Never s moked tobacco (finding) [facility] Tobacco smoking status Never [facility] Comment on above: pt quit smoking 10+ yrs ago Sex Assigned At Male [facility] Medical Equipment Procedure Code Equipment Code Equipment Original Text Equipment Identifier Dates Transurethral resection of bladder tumor (TURBT) with cystoscopy Polymeric ureteral stent [id number] FDA Start: 10-29-2021 Decompression, spine, cervical, posterior approach Bone-screw internal spinal fixation system, non-sterile ()[id number] FDA Start: 04-18-2020 Decompression, spine, cervical, posterior approach Bone-screw internal spinal fixation system, non-sterile ()[id number] FDA Start: 04-18-2020 Decompression, spine, cervical, posterior approach Bone-screw internal spinal fixation system, non-sterile ()[id number] FDA Start: 04-18-2020 Decompression, spine, cervical, posterior approach Bone-screw internal spinal fixation system, non-sterile ()[id number] FDA Start: 04-18-2020 Decompression, spine, cervical, posterior approach Bone-screw internal spinal fixation system, non-sterile ()[id number] FDA Start: 04-18-2020 Goals Date Patient Goal Desired Activity /State Functional Status Date Assessment Result Facility 10-26-2023 Functional Status N/A [facility] 10-04-2023 Functional Status N/A [facility] 04-27-2023 Functional Status N/A [facility] 02-10-2023 Functional Status N/A General [facility] 01-05-2023 Functional Status N/A [facility] 02-24-2022 Functional Status N/A [facility] Clinical Notes 11-04-2021 to 10-26-2023 Note Date [...] degrees. Follow Up Care 09/29/2023 09:06:13 With:Lionel WHITNEY Address: [address] [place] [address]- Business (1) When: Unknown Comments:Office will call to schedule follow up [facility] 10-26-2023 Note [id number] [facility] 10-26-2023 Note Custom Cystoscopy ? Voiding after [...] you have a fever over 100 degrees. [facility] 10-04-2023 Hospital Discharge instructions Patient Education 10/04/2023 [...] if anything looks unusual. Men with a yqgeac-zhdf-leuqkc risk for skin cancer may want to see a therapeutic specialist (cooker mechanic) for an annual body check. What are the benefits of screening? Cancer screening is done to look for cancer in the very early stages, before it spreads and becomes harder to treat and before you would start to notice symptoms. Finding cancer early improves the chances of successful treatment. It may save your life. Where to find more information [place] [employer]: www.cancer.org Centers for Disease Control and Prevention: www.cdc.gov National Cancer [place]: www.cancer.gov Contact a health care provider if: [...] provider. Document Revised: 11/03/2021 Document Reviewed: 05/03/2020 [employer] Patient Education 2022 Coden[employer]. Follow Up Care 10/01/2022 10:55:16 With:DEVONTE NOBLE, Lionel Burgos, URL Address: [facility] [address] [place] [address]- [phone] When: Unknown Comments:1 yr w/ PSA [facility] 04-27-2023 Hospital Discharge instructions Patient Education [...] WHITNEY Address: [facility] [address] [place] [address]- Business (1) When: Unknown Comments:Office will call to schedule follow up [facility] 04-27-2023 Note [id number] [facility] 04-27-2023 Note Custom Cystoscopy ? Voiding after [...] you have a fever over 100 degrees. [facility] 02-10-2023 Note Chief Complaint consultation for surveillance [...] Cervical vertebral fu (more content not included)... [facility] Comment on above: Result Comment: Elec tronically [...] With:Lionel WHITNEY Address: [facility] [address], [place] [address]- Business (1) When: Unknown Comments:Office will call to schedule follow up [facility] 01-05-2023 Note [id number]:[id number] [facility] 01-05-2023 Note Custom Cystoscopy ? Voiding after [...] you have a fever over 100 degrees. [facility] 12-03-2022 Evaluation note Encounter Date Diagnosis Assessment [...] M46.1) Nov, Neurogenic claudication (ICD-10 - R29.818) [facility] 05-04-2023 Evaluation note* Encounter Date Diagnosis [...] spine October, Neurogenic claudication (ICD-10 - R29.818) [facility] 04-03-2023 Hospital Discharge instructions Patient Education [...] if anything looks unusual. Men with a yhlvlf-pwmv-ubgrbb risk for skin cancer may want to see a therapeutic specialist (cooker mechanic) for an annual body check. Where to find more information National Cancer [place]: https://www.cancer.gov/about-cancer/screening Centers for Disease Control and Prevention: https://www.cdc.gov/cancer/dcpc/prevention/screening.htm [place] [employer]: https://www.cancer.org/latest-news/3-zutcrp-ahyvkyueq-ycelj-bvo-iwp.html Contact a health care provider if: You [...] 03/04/2017 Document Revised: 02/24/2019 Document Reviewed: 03/04/2017 [employer] Patient Education 2020 Codenvy. Follow Up Care 09/19/2021 11:05:08 With:DEVONTE NOBLE, Lionel Burgos, URL Address: [facility] [address] , [place] [address]- When: Unknown [facility] [place] 01-17-2023 Hospital Discharge instructions Patient Education 07/07/2022 [...] With:Lionel WHITNEY Address: [facility] [address] [place] [address]- Business (1) When: Unknown Comments:Office will call to schedule follow up [facility]09-06-2022 Hospital Discharge instructions Patient Education 02/24/2022 11:23:44 [...] if anything looks unusual. Men with a coemus-nlnc-ycudzf risk for skin cancer may want to see a therapeutic specialist (cooker mechanic) for an annual body check. Where to find more information National Cancer [place]: https://www.cancer.gov/about-cancer/screening Centers for Disease Control and Prevention: https://www.cdc.gov/cancer/dcpc/prevention/screening.htm [place] [employer]: https://www.cancer.org/latest-news/0-cxmgiq-avwfegedz-pcofq-hyc-lll.html Contact a health care provider if: You [...] 03/04/2017 Document Revised: 02/24/2019 Document Reviewed: 03/04/2017 [employer] Patient Education 2020 Codenvy. Follow Up Care 02/05/2022 13:48:40 With:DEVONTE NOBLE, CAROLINA Salazar Address: [facility] [address] [place] [address]- [phone] When: Unknown [facility] 05-24-2022 Hospital Discharge instructions Patient Education [...] WHITNEY Address: [facility] [address] [place] [address]- Business (1) When: Unknown Comments:Keep scheduled appointment [facility]05-17-2022 Hospital Discharge instructions Patient Education 11/04/2021 14:11:16 [...] who: Are older than age 65. Are -[place]. Are obese. Have a family history of [...] cells. Follow these instructions at home: Take glxo-wjc-ptnlbzo and prescription medicines only as told by [...] 06/07/2006 Document Revised: 05/20/2018 Document Reviewed: 02/15/2017 [employer] Patient Education 2020 Codenvy. Follow Up Care 10/14/2021 11:26:04 With:Lionel WHITNEY MD, URL Address: [facility] [address], [place] [address]- When: Unknown [facility] [employer] + Plan note Future Appointments Appointment Date:09/21/2022 09:45:00 AM Scheduled Provider:Lionel WHITNEY MD Location:[facility] [place] Appointment Type:URO Office Visit [facility] [employer] + Plan note Future Appointments Appointment Date:03/09/2022 09:00:00 AM Scheduled Provider: Location:[facility] [place] Appointment Type:URO Nurse Visit Appointment Date:04/15/2022 09:00:00 AM Scheduled Provider: Location:[facility] [place] Appointment Type:URO Nurse Visit Appointment Date:09/21/2022 09:45:00 AM Scheduled Provider:Lionel WHITNEY MD Location:[facility] [place] Appointment Type:URO Office Visit [facility] [employer] + Plan note Future Appointments Appointment Date:03/09/2022 09:00:00 AM Scheduled Provider: Location:[facility] [place] Appointment Type:URO Nurse Visit Appointment Date:04/15/2022 09:00:00 AM Scheduled Provider: Location:[facility] [place] Appointment Type:URO Nurse Visit Appointment Date:09/21/2022 09:45:00 AM Scheduled Provider:Lionel WHITNEY MD Location:[facility] [place] Appointment Type:URO Office Visit Diagnostic Tests Pending * [facility]rine [facility] Future App[facility]ments Appointment Date:04/15/2022 09:00:00 AM Scheduled Provider[facility] Nurse Visit Appointment Date:09/21/2022 09:45:00 AM Scheduled Provider:Lionel WHITNEY MD [facility] Type:URO Office Visit [facility] evaluation + Plan note Future Appointments Appointment Date:07/20/2022 10:00:00 AM Scheduled Provider: Location:[facility] Appointment Type:URO Nurse Visit Appointment Date:08/17/2022 10:00:00 AM Scheduled Provider[facility] Nurse Visit Appointment Date:09/21/2022 09:45:00 AM Scheduled Provider:Lionel WHITNEY MD Location:[facility] Appointment Type:URO Office Visit Diagnostic Tests Pending * UroVysion FISH ([facility]) [facility]07/[facility] Future Appointments Appointment Date:08/17/2022 10:00:00 AM Scheduled Provider: [facility] Type:[facility]O Nurse Visit Appointment Date:09/21/2022 09:45:00 AM Scheduled Provider:Lionel WHITNEY MD Location:[facility] Appointment Type:URO Office Visit [facility] Evaluation + Plan note Future Appointments Appointment Date:09/22/2022 02:00:00 PM Scheduled Provider: [facility] Appointment Type:Urology CALL PAT FT Appointment Date:09/29/2022 11:15:00 AM Scheduled Provider: [facility] Appointment Type:Urology FT [facility] evaluation + Plan note Future Appointments Appointment Date:09/22/2022 02:00:00 PM Scheduled Provider: Location:[facility] Appointment Type:Urology CALL PAT FT Appointment Date:09/29/2022 11:15:00 AM Scheduled Provider: Location:[facility] Appointment Type:Urology FT Diagnostic Tests Pending * Urine Cytology ([facility]) 09/21/22 [facility] evaluation + Plan note Future Appointments Appointment Date:10/04/2023 10:15:00 AM Scheduled Provider:Lionel WHITNEY MD Location:[facility] Appointment Type:URO Office Visit Diagnostic Tests Pending * UroVysion Fish and Urine Cyto ([facility]) [facility]05/23 [facility] Future Appointments Appointment Date:10/04/2023 10:15:00 AM Scheduled Provider:Lionel WHITNEY MD Location:[facility] Appointment Type:URO Office Visit General Surgery [facility] Evaluation + Plan note Future Appointments Appointment Date:10/04/2023 10:15:00 AM Scheduled Provider:Lionel WHITNEY MD Location:[facility] Appointment Type:URO Office Visit Diagnostic Tests Pending * UroVysion Fish and Urine Cyto ([facility]) 04/27/23 [facility] Future Appointments Appointment Date:10/20/2023 12:00:00 PM Scheduled Provider: Location:[facility] Appointment Type:Urology CALL PAT FT Appointment Date:10/26/2023 10:00:00 AM Scheduled Provider: Location:[facility] Appointment Type:Urology FT Appointment Date:10/09/2024 10:15:00 AM Scheduled Provider:Lionel WHITNEY MD Location:[facility] Appointment Type:URO Office Visit Diagnostic Tests Pending * PSA Total 10/04/23 [facility] evaluation + Plan note Future Appointments Appointment Date:10/09/2024 10:15:00 AM Scheduled Provider:Lionel WHITNEY MD Location:[facility] Appointment Type:URO Office Visit Diagnostic Tests Pending * UroVysion Fish and Urine Cyto ([facility]) [facility] Work Phone: Evaluation note* Diagnosis Onset Date Resolution Status Spinal stenosis of cervical region with radiculopathy acute Spinal stenosis of lumbar region with radiculopathy acute [facility] Work Phone: Evaluation note* Diagnosis Onset Date Resolution Status Spinal stenosis of cervical region with radiculopathy acute Spinal stenosis of lumbar region with radiculopathy acute Colonization status acute COPD (chronic obstructive pulmonary disease) acute [facility] Work Phone: History general Narrative [...] KNEE SCOPE Surgical History L shoulder NAE -[facility] Hospitalization History FLU X2-3 DAYS Hospitalization History see surg. hx. [facility] Hospital course Narrative No data available for this section [facility] Hospital Discharge instructions No data available for this section [facility] progress note No data available for this section [facility] Chief Complaint and Reason for Visit [...] Diagnosis 1 Cervical spondylosis (M47.812) [facility]erral [facility] Referring Provider First Name Zoran Referring Provider Last Name Scott Referring Provider Specialty Neurologica l Surgery Referred Organization [facility] Referred Address [address], [place],[address] Referred Provider Specialty Physical The rapist Referral Priority Routine Reason evaluate and tr eat for neck and back pain Diagnosis 1 Cervical spondylosis (M47.812) Diagnosis 2 Low back pain, unspe cified (M54.50) Referral Organization [facility] Referring Provider First Name Zoran Referring Provider Last Name Scott Referring Provider Specialty Neurologica l Surgery Referred Organization [facility] Referred Provider Raoul Soriano Referred Address [address], [place],[address] Referred Provider Specialty Pain Medicin e Referral [...] August 12, 2023 End: August 12, 2023 PRAFUL SantoyoC Attending Provider Active Start: August 12, 2023 End: August 12, 2023 Team Status: Active Member Role Status Shawn Monterroso MD Primary Care Provider Active Start: August 12, 2023 PRAFUL SantoyoC Attending Provider Active Start: August 12, 2023 [...] content) DATE CREATED AUTHOR 11/27/2022 [facility] DATE CREATED AUTHOR AUTHOR'S ORGANIZ ATION 07/29/2023 [facility] DATE CREATED AUTHOR AUTHOR'S ORGANIZ ATION 09/03/2023 [facility] DATE CREATED AUTHOR AUTHOR'S ORGANIZ ATION 10/01/2023 [facility] DATE CREATED AUTHOR AUTHOR'S ORGANIZ ATION 11/27/2023 [facility] FOR RECORDS PERTAINING TO PATIENTS WHO ARE [...] BE BASED ON THE PRIMARY CLINICAL RECORDS. [employer] [facility]. provides no warranty or guarantee of the accuracy or completeness of information in this document.
[2024-02-24 12:01] LABS: Free T3 2.99 pg/mL (2.18-3.98); Thyroid Stimulating Hormone 1.124 uIU/mL (0.358-3.740)
== END 2024-02-24 10:19 | disposition home or self-care (01) ==
LOC: LAB 10:20
PROVIDERS: PCP Family Medicine; Visit Provider Family Medicine
DX: E03.9 Hypothyroidism, unspecified (principal)
CPT/HCPCS: 36415; 84436; 84443; 84481

== ENCOUNTER 2024-03-02 09:27 | Outpatient (OUT) | payer MEDICARE, SELFPAY ==
--- NOTE | 2024-03-02 09:50 | PM.CN ---
Consult Note: HPI Data of Consult Patient: known to practice within the last 3 years Consult date: 07/26/23 Requesting Physician: Eirn Shelton NP Primary Care Provider: Deandre Staley MD Consult Narrative Reason for consult: chronic neck and right shoulder pain, LBP Narrative: 73yom who presents today for evaluation and management of chronic neck and right shoulder pain, as well as low back and bilateral leg pain. Patient reports 50% improvement from prior right C4-5 C5-6 RFA. Patient continues to have right upper back and shoulder pain, as well as low back pain. Recent right shoulder Xray consistent with OA of AC joint. Pain today 5/10 increasing with activity standing walking stairs bending twisting lifting. Pain decreased with forward flexion, heat, and lying. Patient finds mild to moderate relief from current medication regimen without side effects. Patient had to stop tizanidine due to extreme drowsiness but finds benefit to robaxin 500-1000mg BID PRN. Previously evaluated by NS for lumbar spine who correlates pts lumbar back pain and bilateral leg pain to lumbar stenosis with NC. Lumbar xray and MRI reviewed with pt. cc:: CC: Erin Shelton NP Review of Systems ROS Status of ROS 10 or more systems reviewed and unremarkable except as noted in history and below Musculoskeletal Reports: back pain, neck pain, extremity pain and joint pain PFSH PFSH Medical History COPD (chronic obstructive pulmonary disease) ?J44.9 - Chronic obstructive pulmonary disease, unspecified (ICD-10) Arthritis ?M19.90 - Unspecified osteoarthritis, unspecified site (ICD-10) Anemia ?D64.9 - Anemia, unspecified (ICD-10) Bladder cancer ?C67.9 - Malignant neoplasm of bladder, unspecified (ICD-10) 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 - Other specified disorders of bladder (ICD-10) Neck pain ?M54.2 - Cervicalgia (ICD-10) Low back pain ?M54.50 - Low back pain, unspecified (ICD-10) Osteoarthritis ?M19.90 - Unspecified osteoarthritis, unspecified site (ICD-10) Acid reflux ?K21.9 - Gastro-esophageal reflux disease without esophagitis (ICD-10) Hearing deficit ?H91.90 - Unspecified hearing loss, unspecified ear (ICD-10) Prostate cancer ?C61 - Malignant neoplasm of prostate (ICD-10) Former smoker ?Z87.891 - Personal history of nicotine dependence (ICD-10) Hypertension ?I10 - Essential (primary) hypertension (ICD-10) Surgical History History of colonoscopy ?Z98.890 - Other specified postprocedural states (ICD-10) History of arthroscopy of knee ?Z98.890 - Other specified postprocedural states (ICD-10) History of foot surgery ?Z98.890 - Other specified postprocedural states (ICD-10) History of appendectomy ?Z90.49 - Acquired absence of other specified parts of digestive tract (ICD-10) History of hernia repair ?Z98.890 - Other specified postprocedural states (ICD-10) ?Z87.19 - Personal history of other diseases of the digestive system (ICD-10) S/P cystoscopy ?Z98.890 - Other specified postprocedural states (ICD-10) H/O transurethral resection of bladder tumor (TURBT) ?Z98.890 - Other specified postprocedural states (ICD-10) ?Z86.03 - Personal history of neoplasm of uncertain behavior (ICD-10) H/O transurethral resection of bladder tumor (TURBT) ?Z98.890 - Other specified postprocedural states (ICD-10) ?Z86.03 - Personal history of neoplasm of uncertain behavior (ICD-10) S/P cervical spinal fusion ?Z98.1 - Arthrodesis status (ICD-10) H/O prostatectomy ?Z90.79 - Acquired absence of other genital organ(s) (ICD-10) History of ankle surgery ?Z98.890 - Other specified postprocedural states (ICD-10) H/O shoulder surgery ?Z98.890 - Other specified postprocedural states (ICD-10) Family History Other Depression Family history of diabetes mellitus Family history of hypertension Social History Within the past year, how often did you have a drink containing alcohol: 2-4 times a month Smoking status: Former smoker Non-prescribed substance use: denies use Previous occupational history: retired Highest level of school completed/degree received: Associate degree: occupational, technical, vocational program Meds Home Medications and Allergies Home Medications ?Medication ?Instructions ?Recorded ?Confirmed ?Type diclofenac sodium 75 mg 75 mg PO BID 11/20/22 03/15/23 History tablet,delayed release fluticasone fur. 100 mcg-umeclid 1 inh inhalation DAILY 11/20/22 03/15/23 History 62.5 mcg-vilant 25 mcg inhalat.powder (Trelegy Ellipta) pantoprazole 40 mg tablet,delayed 40 mg PO DAILY 11/20/22 03/15/23 History release amlodipine 5 mg tablet 5 mg PO DAILY 03/15/23 03/15/23 History methocarbamol 500 mg tablet mg PO QDAY 04/21/23 History hydrocodone 5 mg-acetaminophen 325 1 tab PO DAILY PRN pain #30 tabs 05/18/23 Rx mg tablet hydrocodone 5 mg-acetaminophen 325 1 tab PO DAILY PRN pain #30 tabs 12/01/23 Rx mg tablet hydrocodone 5 mg-acetaminophen 325 1 tab PO DAILY PRN pain #30 tabs 02/17/24 Rx mg tablet Allergies Allergy/AdvReac Type Severity Reaction Status Date / Time codeine Allergy Unknown Hives Verified 03/15/23 10:17 acetaminophen [From Percocet] AdvReac ineffective Verified 03/15/23 10:17 oxycodone [From Percocet] AdvReac ineffective Verified 03/15/23 10:17 Exam Constitutional Documenting provider has reviewed patient's vital signs: yes Common normals: no apparent distress, oriented x3, healthy appearing, alert and well nourished General appearance: cooperative Orientation/consciousness: Yes awake, Yes oriented to person, Yes oriented to place and Yes oriented to time HENMI Common normals: normocephalic, hearing grossly normal bilaterally and moist oral mucous membranes Head and scalp: normocephalic Eye Common normals: PERRL Pupil: PERRL Neck & C-Spine Common normals: full ROM General: normal visual inspection Cervical spine: pain with cervical ROM, cervical spine tenderness and paracervical muscle tenderness Other: no arm drift muscle strength bilat UE 5/5 with intact sensation axial pain with ROM Chest Common normals: inspection of chest normal Respiratory Common normals: normal respiratory effort, no retractions and no use of accessory muscles Effort & inspection: able to speak in complete sentences and symmetric chest movement Back & Pelvis Lumbar spine/lower back: ROM limited, pain with ROM, straight leg raise positive right and straight leg raise positive left Other: positive facet loading strength 5/5 in BLE altered sensation to bilateral L4,5,S1 Extremity Common normals: normal to inspection, full ROM and normal capillary refill Right upper extremity: shoulder joint Other: pain over right AC joint, pain increased with crossbody adduction, positive empty cans and lift off Neuro Common normals: oriented x3, CN's II-XII intact bilaterally, moves all extremities, no focal motor deficits, no sensory deficits noted and deep tendon reflexes 2+ bilaterally Sensorium/orientation: alert Motor exam: strength 5/5 throughout and no movement abnormalities noted Psych Common normals: mental status grossly normal, thought process normal, cooperative, affect normal, speech normal and activity/motor behavior normal Speech: normal speech Thought process: normal thought process Results Additional Findings Additional findings: If on a controlled substance or opioids, I have checked an [place] report on this patient and there are no aberrancies noted in the prescribing history.??If on a controlled substance or opioid a drug screen was completed and reviewed within the last year, and if there has not been a drug screen completed we ordered one today to monitor higher risk, state monitored pain medication use. As part of providing excellent, safe, comprehensive care, the following was completed at our patient's visit: 1. A medication reconciliation and review to ensure accurate knowledge of current/active medications, including asking our patients to inform us about any [id number] medications or herbal remedies/nutritional supplements/alternative remedies. 2. A review to specifically ensure our patients have had annual screening for screening for depression, screening for tobacco use, and screening for unhealthy alcohol use. For concerning screenings had a discussion with the patient, provided patient education, and recommended follow-up with primary care provider when appropriate. If patient noted with a risk of falling, they received education on strength, gait, and balance training to prevent future risk of falling. Assessment and Plan Assessment and Plan (1) Lumbar stenosis with neurogenic claudication: Assessment and Plan: Prior lumbar MRI shows moderate central canal stenosis at L3-4 and L4-5, moderate to severe foraminal narrowing at L4-5 L5-S1 (2) Osteoarthritis of right shoulder: Assessment and Plan: defer right shoulder injection at this time, pain well controlled. can call to schedule (3) Myofascial pain: (4) Cervical spondylosis: (5) Chronic prescription opiate use: Assessment and Plan: I feel these medications are improving the patient's quality of life and allow them to tolerate activities of daily living as well as participate in recreational activity.? The patient does not report intolerable side effects. The patient is NOT opioid naive and non-pharmacologic and non-opioid treatment has failed to significantly relieve the patient's pain and improve functionality. The patient has a diagnosis that is related to a somatic or visceral pain etiology. ? ?? I reviewed with the patient the potential risks and side effects with the use of? opioid medications including but not limited to respiratory depression,? sedation, and even . I verified the patient has access to naloxone should? these effects occur. I advised the patient to avoid the use of any other? sedation substances including alcohol, THC, and benzodiazepines while? taking opioid medications due to the risk of compounding side effects and? detrimental outcomes. I reviewed the [employer], pain treatment agreement, urine? drug screen, and opioid start talking forms. The patient was advised to let? their family know they had Naloxone in case they would need to administer? the medication.? ?? A drug screen was completed within the last year, and no aberrancies were noted regarding their use of controlled substances. The patient understands they are subject to the terms and conditions of the pain contract that they have signed. ? ?? I have checked an [place] report on this patient today and there are no aberrancies noted in the prescribing history.? (6) Muscle spasm: (7) Cervical postlaminectomy syndrome: (8) Lumbar spondylosis: Plan bilateral L4-5 TFESI under fluoroscopy for lumbar stenosis with NC followed by bilateral L5-S1 TFESI under fluoroscopy for lumbar stenosis with NC. risks vs benefits reviewed consider L4-5 vertiflex in the future continue current medications, tolerating well without side effects. noticing improvement with medications except NC symptoms f/u 2 weeks after [facility]
== END 2024-03-02 09:28 | disposition home or self-care (01) ==
LOC: PM 09:28
PROVIDERS: PCP Family Medicine; Visit Provider Nurse Practitioner
DX: M48.062 Spinal stenosis, lumbar region with neurogenic claudication (principal); M19.011 Primary osteoarthritis, right shoulder; M47.812 Spondylosis without myelopathy or radiculopathy, cervical region; Z79.891 Long term (current) use of opiate analgesic; M62.838 Other muscle spasm; M96.1 Postlaminectomy syndrome, not elsewhere classified; M47.816 Spondylosis without myelopathy or radiculopathy, lumbar region
CPT/HCPCS: G0463

== ENCOUNTER 2024-03-27 09:41 | Day surgery (SDC) | payer MEDICARE, SELFPAY ==
--- OUTSIDE RECORDS SUMMARY | 2024-03-27 09:50 | XMS_ITS | CCD ---
Author Organization [facility] Care Team Providers Care Foxpro Developer Name Role Phone MD Yolande Monterroso Primary Care Provider [phone] MD Lionel Whitney Attending Provider Yolande Monterroso Primary Care Physician Liedy Plummer Unavailable Unavailable MD Yolande Monterroso Primary Care Provider [phone] MD Lionel Whitney Attending Provider Zoran Chavez [...] Unavailable MD Yolande Monterroso Primary Care Provider [phone] MD Zoran Chavez Attending Provider Gieditis , Andrius Kilgore Attending Unavailable Samnathaedhali NOBLE, Andrius Vytautpascale Attending Unavailable Giedraitis , Andrius Vjayesh Attending Unavailable Syeda NOBLE, Andrius Vyteli Attending Unavailable Syeda NOBLE, Andrius Magui Attending Unavailable MD Yolande Monterroso Primary Care Provider [phone] LDIA Lowery Attending Provider Yolande Monterroso Primary Care Unavailable Esther Lowery Admitting Unavailable Sebastián, Esther Attending Unavailable Yolande Monterroso Primary Care Unavailable Sebastián, Esther Admitting Unavailable Esther Lowery Attending Unavailable Yolande Monterroso Primary Care Unavailable Zoran Chavez Admitting Unavailable Zoran Chavez Attending Unavailable VASU GALEANO Attending Unavailable KELLY ORTIZ Attending Unavailable MD Yolande Monterroso Primary Care Provider [phone] LIDA Lowery Attending Provider Qamar SMITH Attending [...] Allergy 0 Itching, Itching agitated, Itching agitated, [facility] (20 sources) Codeine; 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: [Codeine] Drug Allergy 4 [facility] (10 sources) oxyCODONE; 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: [oxycodone] Drug Allergy 0 Itching, agitated, Itching, agitated, [facility] (16 sources) Acetaminophen / oxyCODONE; 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: [acetaminophen-oxyc odone] Drug Allergy aggitation [facility] James Comment on above: pt states this does not work for pt, pt is not allergic to vicodin (5 sources) cyclobenzaprine Drug Allergy 4 itching [facility] (5 sources) HYDROcodone Drug Allergy 4 anxiety [facility] (5 sources) tiZANidine Drug Allergy 4 hives [facility] (3 sources) Acetaminophen / HYDROcodone; 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: [Vicodin] Drug Allergy [facility] (2 sources) Acetaminophen / oxyCODONE Drug Allergy [facility] (1 source) atorvastatin Drug Allergy [facility] (2 sources) tiZANidine Drug Allergy [facility] (1 source) cyclobenzaprine Drug Allergy 4 [facility] (1 source) HYDROcodone Drug Allergy 4 [facility] (1 source) tiZANidine Drug Allergy 4 [facility] (1 source) Acetaminophen / oxyCODONE; 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: [...] Start: 09-19-2021 take 2 tablets by mo [facility] twice daily carvedilol 6.25 mg Tab 12.5 [...] 07, 2019 1:00am April 19, 2020 8:04am Gerwhpjiuyf-Cqadqmlxn-Kzqqhd er (9 sources) Anticholinergic, Corticosteroid, beta2-Adrenergic Agonist Start: 08-07-2019 Fbekjymqwbo-Atjjjweux-Ivhhpu er (Trelegy Ellipta) 100-62.5-25 mcg Blister With [...] procedure, # 2 tab(s), Refills(s) 0, Pharmacy: [facility]/pharmacy #[id number], 170, cm, 01/20/23 10:45:00 EDT, Height/Length Dosing, 83.5, kg, 01/20/23 10:45:00 EDT, Weight Dosing Start Date: 01/20/23 Status: Ordered Start: 12-31-2022 take 1 tablet by barry th once daily Cipro 500 mg Tab 500 mg = 1 tab(s), Oral, Daily, Take 1 tablet the day before the procedure and 1 tablet after the procedure, # 6 tab(s), Refills(s) 0, Pharmacy: [facility]/pharmacy #[id number], 170, cm, 09/22/22 12:23:00 EDT, Height/Length Dosing, 78, kg, 02/24/22 10:53:00 EDT, W... Start Date: 12/31/22 Status: Ordered Start: 07-02-2022 take 1 tablet by barry th once daily Cipro 500 mg Tab 500 mg = 1 tab(s), Oral, Daily, Take 1 tablet the day before the procedure and 1 tablet after the procedure, # 6 tab(s), Refills(s) 0, Pharmacy: [facility]/pharmacy #[id number], 170, cm, 02/24/22 10:53:00 EDT, Height/Length [...] procedure, # 2 tab(s), Refills(s) 0, Pharmacy: [facility]/pharmacy #[id number], 170, cm, 11/05/21 11:37:00 EDT, Height/Length [...] procedure, # 2 cap(s), Refills(s) 0, Pharmacy: [facility]/pharmacy #6177, 188, cm, 02/10/23 14:22:00 EDT, Height/Length [...] period., # 30 tab(s), Refills(s) 3, Pharmacy: [facility], 170, cm, 10/04/23 10:36:00 EDT, [...] period., # 30 tab(s), Refills(s) 3, Pharmacy: [facility], 170, cm, 02/24/22 10:53:00 EDT, Height/Length Dosing, 78, kg, 02/24/22 10:53:00 EDT, Weight Dosing Start Date: 07/05/22 Status: Ordered Start: 09-19-2021 sildenafil 100 mg Tab 100 mg = 1 tab(s), Oral, Daily, Take 1 pill 30 minutes prior to sexual relations, # 30 tab(s), Refills(s) 3, Pharmacy: [facility], 170, cm, 09/19/21 10:16:00 EDT, [...] a surgery d one radical prostectomy at [facility] Cancer of prostate (20 sources) Personal [...] region] Episodic Other aftercare (1 source) Other senior care (current) drug therapy; 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: [OTH LONGTERM CURRENT DRUG THERAPY] Onset: 3 Episodic Other [...] including vitamins, herbs, eye drops, creams, and firx-nbg-fxymkai medicines. ? Any problems you or family [...] tells you to take them. ? Taking whzw-awi-vhxiidx medicines, vitamins, herbs, and supplements. General instructions [...] health c (more content not included)... Normal [facility] UroVysion Fish and Urine Cyt o ([facility])on 11-02-2023 UVFISH & UC Diagnosis Info Invalid Interpretation Code [facility] [...] on: 11/02/2023 10:22:27 Performed By: #### 1 [id number] ####[facility] [address] [place] [address] Consent for Procedure/Surger yon 10-26-2023 Consent for Procedure/Surgery [id number] 2#1.00TIFF Normal [facility] Consent for Treatmenton Consent for Treatment [id number] #1.00TIFF Normal [facility] IntraOperative Documentson 0 10-26-2023 IntraOperative Documents [id number] 2#1.00TIFF Tran [facility] Main OR Intraoperative Recor don 10-26-2023 Main OR Intraoperative Record IntraOp Document Type FTURO Summary Primary Physician: Lionel WHITNEY MD Finalized Date/Time: 10/26/23 11:57:52 Pt. Name: EMILY MARY Verma/Sex: 1950 Male Med Rec #: [id number] Physician: Lionel WHITNEY MD Financial #: [id number] Pt. Type: O Room/Bed: / Admit/Disch: 10/26/23 09:34:20 - Institution: Case Times FTURO Entry 1 Patient Times In Room 10/26/23 11:49:00 Out Room 10/26/23 11:57:00 Procedure Times Start 10/26/23 11:51:00 Stop 10/26/23 11:55:00 Anesthesia Times Last Modified By: Fabiana Galaviz 10/26/23 11:57:45 Case Attendance FTURO Entry 1 Entry 2 Entry 3 Case Attendee Lionel WHITNEY MD, Kelsie E McClain GUNSMITH APPRENTICENanci Role Performed Surgeon - Primary Coordinate Measuring Equipment Operator - Primary Scrub - Primary Time In [...] Prep Agents Betadine Solution Skin. Condition Intact, Russell, Warm, and Description REDDED DOTS ON Dry, [...] 10/26/23 11:57 Fabiana Galaviz 10/26/23 11:57 Normal [facility] Main OR Preoperative Recordo n 10-26-2023 Main OR Preoperative Record Holding Area Document Type FTURO Summary Primary Physician: Lionel WHITNEY MD Finalized Date/Time: 10/26/23 11:16:48 Pt. Name: EMILYMARY/Sex: 1950 Male Med Rec #: [id number] Physician: Lionel WHITNEY MD Financial #: [id number] Pt. Type: O Room/Bed: / Admit/Disch: 10/26/23 [...] 11:11 Nanci Cortes RN 10/26/23 11:16 Normal [facility] Operative Reporton Operative [...] Discharge Instructionon 10-26-2023 Outpatient Surgery Discharge Instruction [id number] 2#1.00TIFF Normal [facility] UroVysion Fish and Urine Cyt o ([facility])on 10-26-2023 [facility] Method of Extraction Voided Normal [facility] Comment on above: Performed By: #### 1 [id number] ####[facility] [address] [place] [address] [facility] Number of Jars 1 Invalid Interpretation Code [facility] Comment on above: Performed By: #### 1 [id number] ####[facility] [address] [facility] [place] [address] [facility] Specimen Urine Normal [facility] Comment on above: Performed By: #### 1 [id number] ####[facility] [address] [facility] [place] [address] [facility] Type of Service Technical Only Normal [facility] Comment on above: Performed By: #### 1 [id number] ####[facility] [address] [facility] [place] [address] Ambulatory Visit Summaryon 0 10-04-2023 Ambulatory Visit [...] Wednesday. 2023 12:00 PM EDT With: Where: [facility] Wednesday. 2023 10:00 AM EDT With: Where: [facility] Wednesday 10:15 AM EDT With: Lionel WHITNEY MD Where: [facility] Patient Educationon 10-04-19 Patient Education Oncology Cancer [...] if anything looks unusual. Men with a mppfpd-ngjs-appylg risk for skin cancer may want to see a end user support specialist (clerical administrative assistant) for an annual body check. What are the benefits of screening? Cancer screening is done to look for cancer in the very early stages, before it spreads and becomes harder to treat and before you would start to notice symptoms. Finding cancer early improves the chances of successful treatment. It ma (more content not included)... Normal [facility] Urology Office/Clinic Noteon 10-04-2023 Urology Office/Clinic Note [...] Urology [address], [place] [address] [phone] Additional Instructions: 1 yr w/ PSA Patient [...] inhalation po (more content not included)... Normal [facility] Comment on above: [...] Spoke to austyn hendricks for 10/26/23 at [facility] LG Patient will be due in Apr 2024 for 6 month cysto/fish/cytol (bt ck) Normal [facility] Lab Reportson 09-22-2023 Lab Reports [id number] #1.00TIFF Normal [facility] MR cervical spine wo/w conon 08-29-2023 MR cervical spine wo/w con [facility] [place] [address] MRI Report Signed Patient: Mary Diaz MR#: [id number] : 1950 Acct:[id number] Age/Sex: 73 / M ADM Date: 08/28/23 Loc: MR Room: Type: [facility] Attending Dr: Esther Lowery GOLF COURSE DESIGNER-C Copies to: LIDA Flynn Ordering Provider: LIDA [...] Lupe Campos M.D.08/29/2023 1:06 PM Dictation Location: [place] [address] Transcribed By: [facility] 08/29/23 1306 Dictated By: Lupe Campos MD 08/29/23 1254 Signed By: 08/29/23 1306 [facility] Creatinine (Bld) [Mass/Vol]O rdered By: Esther Lowery on 08-28-2023 Creatinine [Mass/Vol] 1.2 mg/dL 0.6-1.3 [facility] Comment on above: ER/ESD physician is notified/shown all ISTAT results.Critical values may be confirmed by laboratory testing ifdeemed necessary by ER attending doctor. ISTAT XRay CREon 08-28-2023 Creatinine [Mass/Vol] 1.2 mg/dL Normal 0.6-1.3 [facility] Comment on above: Result Comment: ER/E SD physician is notified/shown all ISTAT results. Critical values may be confirmed by laboratory testing if deemed necessary by ER attending doctor. Performed By: #### I SCRE #### [address] ISTAT GFR > 60.0 [facility] Comment on above: Result Comment: PERF ORMED BY: [place] [address] PATHOLOGIST WIRE SPRING RELAY ADJUSTER JENARO FLOREZ M.D. Performed By: #### I SCRE #### [address] No Panel InformationOrdered By: Esther Lowery on 08-28-2023 Bedside Estimated GFR (eGFR) > 60.0 [facility] XR cervical spine LAT/FLX/EX Ton 08-12-2023 XR cervical spine LAT/FLX/EXT [facility] [place] [address] XRay Report Signed Patient: Mary Diaz MR#: [id number] : 1950 Acct:[id number] Age/Sex: 73 / M ADM Date: 08/12/23 Loc: XD Room: Type: REG CLI Attending Dr: Esther Lowery GOLF COURSE DESIGNER-C Copies to: LIDA Flynn Ordering Provider: LIDA [...] Kenny Leahy M.D.08/12/2023 3:29 PM Dictation Location: [place] [address] Transcribed By: [facility] 08/12/23 1529 Dictated By: Kenny Leahy DO 08/12/23 1528 Signed By: 08/12/23 1529 [facility] XR lumbar spine 6V w bending on 08-12-2023 XR lumbar spine 6V w bending [facility] [place] [address] XRay Report Signed Patient: Mary Diaz MR#: [id number] : 1950 Acct:[id number] Age/Sex: 73 / M ADM Date: 08/12/23 Loc: XD Room: Type: REG CLI Attending Dr: Esther Lowery GOLF COURSE DESIGNER-C Copies to: LIDA Flynn Ordering Provider: LIDA [...] Kenny Leahy M.D.08/12/2023 3:28 PM Dictation Location: [place] [address] Transcribed By: PWS 08/12/23 1528 Dictated By: Kenny Leahy DO 08/12/23 1526 Signed By: 08/12/23 1528 [facility] UroVysion Fish and Urine Cyt o ([facility])on 05-26-2023 UVFISH & UC Revision Information Invalid Interpretation Code [facility] Comment on above: Result Comment: Jimbo ection Reason -[ To Nur, 05/26/23 - 14:52 ] Corrected report issued to include PMS/PWS. The diagnosis remains unchanged. Correction Notes - Performed By: #### 1 [id number] ####[facility] [address] [place] [address] Consent for Procedure/Surger yon 04-27-2023 Consent for Procedure/Surgery [id number] #1.00TIFF [facility] Consent for Treatmenton Consent for Treatment [id number] #1.00TIFF Normal [facility] IntraOperative Documentson 1 06-27-2022 IntraOperative Documents [id number] #1.00TIFF [facility] Main OR Intraoperative Recor don 04-27-2023 Main OR Intraoperative Record IntraOp Document Type FTURO Summary Primary Physician: Lionel WHITNEY MD Finalized Date/Time: 04/27/23 11:02:57 Pt. Name: MARY DIAZ D.O.B./Sex: [address] [facility] Rec #: [id number] Physician: Lionel WHITNEY MD Financial #: [id number] Pt. Type: O Room/Bed: / Admit/Disch: 04/27/23 [...] Nanci Luna Role Performed Surgeon - Primary Coordinate Measuring Equipment Operator - Primary Scrub - Primary Time In [...] [facility] Main [facility] Preoperative Recordo n 11-07-2023 Main OR Preoperative Record Holding Area Document Type FTURO Summary Primary Physician: Lionel WHITNEY MD Finalized Date/Time: 04/27/23 10:26:02 Pt. Name: MARY DIAZ /Sex: 1950 Male Med Rec #: [id number] Physician: Lionel WHITNEY MD Financial #: [id number] Pt. Type: O Room/Bed: / Admit/Disch: 04/27/23 [...] Complaints of Pain: No Skin Integrity Intact, Russell, Warm, & Dry Vitals - EU Blood Pressure 167/96 Pulse 76 bpm Respirations 20 br/min SPO2 97 % Last Modified By: Avani Costello LPN 04/27/23 10:25:57 General Comments: Temp 36.7 Finalized By: Avani Costello LPN Document Signatures Signed By: Avani Costello LPN 04/27/23 10:26 Normal [facility] Operative Reporton 3 Operative Report Patient: [...] repeat a surveillance cystoscopy in 6 months.. [facility] Comment on above: Result Comment: Elec tronically Signed By: DEVONTE NOBLE, Lionel Burgos\.br\Date and Time Signed: 04/27/23 11:04 EST Outpatient Surgery Discharge Instructionon 04-27-2023 Outpatient Surgery Discharge Instruction [id number] #1.00TIFF [facility] Reminderson 04-27-2023 Reminders - From: Loretta Simons To: EU - Recalls Devonte; Cc: Loretta Simons; Sent: 03/05/2023 14:06:16 EDT Show up: 07/22/2023 14:06:00 EST Subject: Cysto/fish/cytol, Due Date/Time: 08/09/2023 14:06:00 EST Reminder/Recall Patient is due in August 2023 for 4 month cysto/fish/cytol (bt ck), ? PSA Pt will be due in October 2023 for 6 month cysto [facility] UroVysion Fish and Urine Cyt o ([facility])on 04-27-2023 [facility] Method of Extraction Voided Normal [facility] Comment on above: Performed By: #### 1 [id number] ####[facility] [address] [place] [address] [facility] Number of Jars 1 Invalid Interpretation Code [facility] Comment on above: Performed By: #### 1 [id number] ####[facility] [address] [facility] [place] [address] [facility] Specimen Urine Normal [facility] Comment on above: Performed By: #### 1 [id number] ####[facility] [address] [place] [address] [facility] Type of Service Technical Only Normal [facility] Comment on above: Performed By: #### 1 [id number] ####[facility] [address] [facility] [place] [address] Outside Colonoscopyon 2022 Outside Colonoscopy [id number] #1.00CD:127 Normal [facility] Reminderson 03-16-2023 Reminders - From: Stephanie Fletcher LPN To: N - Clinical; Sent: 03/16/2023 07:57:36 EDT Show up: 02/08/2028 07:00:00 EDT Subject: colonoscopy recall Due Date/Time: 03/10/2028 07:00:00 EDT Reminder/Recall Patient due for surveillance colonoscopy 03/10/2028 due to history of colonic polyps. Normal [facility] Consent for Procedure/Surger yon 02-11-2023 Consent for Procedure/Surgery [id number]# 1.00CD:127 Normal [facility] Ambulatory Visit Summaryon 0 02-10-2023 Ambulatory [...] NOBLE, Lionel Burgos Where: [facility] Normal [facility] Physician Referralon 023 Physician Referral [id number] #1.00CD:127 Normal [facility] UroVysion Fish and Urine Cyt o ([facility])on 02-03-2023 UVFISH & UC Revision Information Invalid Interpretation Code [facility] Comment on above: Result Comment: Jimbo ection Reason -[ To Nur, 02/03/23 - 12:32 ] Corrected report issued to update PMS/PWS. The diagnosis remains unchanged. Correction Notes - Performed By: #### 1 [id number] ####[facility] [address] [place] [address] Operative Reporton Operative Report [id number] #1.00CD:127 Normal [facility] Ambulatory Visit Summaryon [...] Reilly Normal [address] [place] [address]- \.br\ You Need to Schedule the Following Appointments\.br \ Follow Up with DEVONTE NOBLE, Lionel Burgos, URL When: \.br\ Comments:\.br\ sched cysto\.br\ Where:\.br\ [facility] [address]\.br\ [place] [address].br\ [phone]\.br\ Medications\.br\ What How Much When Instructions\.br \ New ciprofloxacin (Cipro 500 mg Tab) 1 Tablets By Mouth Every day take one tab day before procedure and one tab after procedure Pickup at [facility]/pharmacy #6177\.br\ Unchanged sildenafil (sildenafil 100 mg Tab) [...] if questions or concerns \.br\ Pharmacy Information\.br\ [facility]/pharmacy #6177: [address] [place], [place] [id number] [phone]\.br\ Allergies\.br\ Percocet 5/325\.br\ codeine (hives/rashes)\. br\ Problems\.br\ [...] these instructions at home:\.br\ ? \.br\ Take toyb-uch-trhchwq and prescription medicines only as told by [...] Where to find more information\.br\ ? \.br\ [employer] (ACS): cancer.org\.br\ ? \.br\ National [employer] [place] (NCI): cancer.gov\.br\ Contact a health care provider [...] Re[facility] Normal [address] [place] [address] [place] [address]- \.br\ You Need to Schedule the Following Appointments\.br \ Follow Up with Lionel WHITNEY MD, URL When: \.br\ Comments:\.br\ sched cysto\.br\ Where:\.br\ [facility] [address]br\ [place] [address].br\ [phone]\.br\ Medications\.br\ What How Much When Instructions\.br \ [...] these instructions at home:\.br\ ? \.br\ Take xvdg-yvh-uwdzvnt and prescription medicines only as told by [...] Where to find more information\.br\ ? \.br\ [employer] (ACS): cancer.org\.br\ ? \.br\ National Cancer [place] (NCI): cancer.gov\.br\ Contact a health care provider [...] [facility] Pathology Noteon 01-20-2023 Pathology Note [id number] #1.00CD:127 Normal [facility] Patient Educationon 01-21-20 [...] Follow these instructions at home: ? Take kwvg-oos-xortgmy and prescription medicines only as told by [...] important. Where to find more information ? [employer] (ACS): cancer.org ? National [employer] [place] (NCI): cancer.gov Contact a health care provider [...] not included)... Normal [facility] Urology Office/Clinic Noteon 01-20-2023 Urology [...] [facility]rology [address], [place] [phone] Additional Instructions: sched cysto Patient Education Bladder [...] Arthroplasty of th (more content not included)... [facility] Comment on above: Result Comment: Elec tronically Signed By: Lionel WHITNEY MD\.br\Date and Time Signed: 01/20/23 11:40 EDT\.br\Electronically Co-Signed By: Lilo Zhou\.br\Date and Time Co-Signed: 01/20/23 11:37 EDT Lab Reportson 01-11-2023 Lab Reports [id number] #1.00CD:127 [facility] Consent for Procedure/Surger yon 01-05-2023 Consent for Procedure/Surgery [id number] 2#1.00CD:127 [facility] Consent for Treatmenton 12-19 Consent for Treatment [id number] #1.00CD:127 [facility] IntraOperative Documentson 0 01-05-2023 IntraOperative Documents [id number] 5#1.00CD:127 [facility] Main OR Intraoperative Recor don 01-05-2023 Main OR Intraoperative Record IntraOp Document Type FTURO Summary Primary Physician: Lionel WHITNEY MD Finalized Date/Time: 01/05/23 10:57:53 Pt. Name: MARY DIAZ Sue Verma/Sex: 1950 Male Med Rec #: [id number] Physician: Lionel WHITNEY MD Financial #: [id number] Pt. Type: O Room/Bed: / Admit/Disch: 01/05/23 [...] Zora Luna Role Performed Surgeon - Primary Coordinate Measuring Equipment Operator - Primary Scrub - Primary Time In [...] Name: EMILYMARY/Sex: 1950 Male Med Rec #: [id number] Physician: Lionel WHITNEY MD Financial #: [id number] Pt. Type: O Room/Bed: / Admit/Disch: 01/05/23 [...] Comment on above: Performed By: #### 1 [id number] ####[facility] [address] [place] [address] [facility] Number of Jars 1 Invalid Interpretation Code [facility] Comment on above: Performed By: #### 1 [id number] ####[facility] [address] [facility] [place] [address] [facility] Specimen Urine Normal [facility] Comment on above: Performed By: #### 1 [id number] ####[facility] [address] [place] [address] [facility] Type of Service Technical Only Normal [facility] Comment on above: Performed By: #### 1 [id number] ####[facility] [address] [place] [address] MR lumbar spine wo conon MR lumbar spine wo con [facility] [place] [address] MRI Report Signed Patient: Mary Diaz MR#: [id number] : 1950 Acct:[id number] Age/Sex: 72 / M ADM Date: 01/01/23 Loc: Room: Type: [facility] Attending Dr: Zoran Chavez MD Copies to: [...] Jamaica Alas M.D.01/01/2023 2:48 PM Dictation Location: [place] [id number] Transcribed By: [facility] 01/01/23 5545 Dictated By: Jamaica Alas II, MD 01/01/23 1441 Signed By: 01/01/23 1448 Normal [facility] Retail - Clinical Noteon Retail - Clinical Note [id number] Normal [facility] XR CSPINE MIN [...] ALLI CORTES Date: 2022-10-23 11:53 Normal [facility] XR LSPINE W_OBLS AND FLEX_EX Ton 10-23-2022 XR LSPINE W_OBLS AND FLEX_EXT EXAM: XR LSPINE W_OBLS AND FLEX_EXT HISTORY: Low back pain COMPARISON: None. TECHNIQUE: 2 views Findings/impression: Retrolisthesis of L2 over L3 by 4 mm. Multilevel endplate degenerative changes, disc disease, and anterior spurring. Calcified atherosclerotic disease of aorta. No acute fracture. Electronically authenticated by: JAMAICA GONZALEZ Date: 2022-10-23 13:18 Normal [facility] BNPon 10-06-2022 Natriuretic peptide B (Bld) [Mass/Vol] 844.0 pg/mL Normal <=900.0 [facility] Comment on above: Performed By: #### [facility] #### [facility] [address] [place] [address] Dr. Johnna Dixon CBC AUTO DIFFon 10-06-2022 BASO # 0.0 103/ul Normal 0.0-0.1 [facility] Comment on above: Performed By: #### C BC #### [facility] [address] [place] [address] Dr. Johnna Dixon Basophils/100 WBC (Bld) 0.0 % Critically low 0.2-2.0 [facility] Comment on above: Performed By: #### C BC #### [facility] [address] [place] [address] Dr. Johnna Dixon EO # 0.0 103/ul Normal 0.0-0.7 [facility] Comment on above: Performed By: #### C BC #### [facility] [address] [place] [address] Dr. Johnna Dixon Eosinophils/100 WBC (Bld) 0.0 % Critically low 0.9-7.0 [facility] Comment on above: Performed By: #### C BC #### [facility] [address] [place] [address] Dr. Johnna Dixon Erythrocyte distribution width (RBC) [Ratio] 13.9 % Normal 11.0-15.0 [facility] Comment on above: Performed By: #### C BC #### [facility] [address] [place] [address] Dr. Johnna Dixon Hematocrit (Bld) [Volume fraction] 33.6 % Critically low 42.0-54.0 [facility] Comment on above: Performed By: #### C BC #### [facility] [address] [place] [address] Dr. Johnna Dixon Hemoglobin (Bld) [Mass/Vol] 11.1 g/dL Critically low 14.0-18.0 [facility] Comment on above: Performed By: #### C BC #### [facility] [address] [place] [address] Dr. Johnna Dixon IG # 0.03 10e3/ul Normal 0.00-0.03 [facility] Comment on above: Performed By: #### C BC #### [facility] [address] [place] [address] Dr. Johnna Dixon IG % 0.5 % Normal 0.0-0.5 [facility] Comment on above: Performed By: #### C BC #### [facility] [address] [place] [address] Dr. Johnna Dixon LYMPH # 0.7 103/ul Critically low 1.2-3.8 [facility] Comment on above: Performed By: #### C BC #### [facility] [address] [place] [address] Dr. Johnna Dixon Lymphocytes/100 WBC (Bld) 11.5 % Critically low 20.5-60.0 [facility] Comment on above: Performed By: #### C BC #### [facility] [address] [place] [address] Dr. Johnna Dixon MANUAL DIFF REQ NO Normal [facility] Comment on above: Performed By: #### C BC #### [facility] [address] [place] [address] Dr. Johnna Dixon MCH (RBC) [Entitic mass] 31.0 pg Normal 25.9-34.0 [facility] Comment on above: Performed By: #### C BC #### [facility] [address] [place] [address] Dr. Johnna Dixon MCHC (RBC) [Mass/Vol] 33.0 g/dL Normal 29.9-35.2 [facility] Comment on above: Performed By: #### C BC #### [facility] [address] [place] [address] Dr. Johnna Dixon MCV (RBC) [Entitic vol] 93.9 fL Normal 80.0-94.0 [facility] Comment on above: Performed By: #### C BC #### [facility] [address] [place] [address] Dr. Johnna Dixon MONO # 0.3 103/ul Normal 0.3-0.8 [facility] Comment on above: Performed By: #### C BC #### [facility] [address] [place] [address] Dr. Johnna Dixon Monocytes/100 WBC (Bld) 4.5 % Normal 1.7-12.0 [facility] Comment on above: Performed By: #### C BC #### [facility] [address] [place] [address] [address] Johnna Dixon NEUT # 5.0 103/ul Normal 1.4-6.5 [facility] Comment on above: Performed By: #### C BC #### [facility] [address] [place] [address] [address] Johnna Dixon Neutrophils/100 WBC (Bld) 83.5 % Critically high 43.0-75.0 [facility] Comment on above: Performed By: #### C BC #### [facility] [address] [place] [address] [address] Johnna Dixon Platelet mean volume (Bld) [Entitic vol] 10.3 fL Normal 9.5-13.5 [facility] Comment on above: Performed By: #### C BC #### [facility] [address] [place] [address] Dr. Johnna Dixon PLT 184 103/ul Normal 150-450 [facility] Comment on above: Performed By: #### C BC #### [facility] [address] [place] [address] Dr. Johnna Dixon RBC 3.58 106/ul Critically low 4.70-6.10 [facility] Comment on above: Performed By: #### C BC #### [facility] [address] [place] [address] Dr. Johnna Dixon WBC 6.0 103/ul Normal 4.0-11.0 [facility] Comment on above: Performed By: #### C BC #### [facility] [address] [place] [address] Dr. Johnna Dixon PROF 14(COMP METB)on 023 Albumin [Mass/Vol] 2.7 g/dL Critically low 3.4-5.[address] [facility] Comment on above: Performed By: #### C VDTBH #### [facility] [address] [place] [address] Dr. Johnna Dixon Albumin/Globulin [Mass ratio] 0.9 {ratio} Normal [facility] Comment on above: Performed By: #### C VDTBH #### [facility] [address] [place] [address] [address] Johnna Dixon ALP [Catalytic activity/Vol] 32 U/L Critically low 46-116 [facility] Comment on above: Performed By: #### C VDTBH #### [facility] [address] [place] [address] [address] Johnna Dixon ALT [Catalytic activity/Vol] 19 U/L Normal 16-63 [facility] Comment on above: Performed By: #### C VDTBH #### [facility] [address] [place] [address] [address] Johnna Dixon Anion gap [Moles/Vol] 14.0 mmol/L Normal [facility] Comment on above: Performed By: #### C VDTBH #### [facility] [address] [place] [address] [address] Johnna Dixon AST [Catalytic activity/Vol] 12 U/L Critically low 15-37 [facility] Comment on above: Performed By: #### C VDTBH #### [facility] [address] [address] [address] Johnna Dixon Bilirubin [Mass/Vol] 0.6 mg/dL Normal 0.2-1.0 [facility] Comment on above: Performed By: #### C VDTBH #### [facility] [address] [place] [address] [address] Johnna Dixon Calcium [Mass/Vol] 8.3 mg/dL Critically low 8.5-10.1 [facility] Comment on above: Performed By: #### C VDTBH #### [facility] [address] [address] [address] Johnna Dixon Chloride [Moles/Vol] 107 mmol/L Normal 98-107 [facility] Comment on above: Performed By: #### C VDTBH #### [facility] [address] [place] [address] [address] Johnna Dixon CO2 [Moles/Vol] 24.9 mmol/L Normal 21.0-32.0 [facility] Comment on above: Performed By: #### C VDTBH #### [facility] [address] [place] [address] [address] Johnna Dixon Creatinine [Mass/Vol] 1.20 mg/dL Normal 0.70-1.30 [facility] Comment on above: Performed By: #### C VDTBH #### [facility] [address] [place] [address] [address] Johnna Dixon EGFR-AF KENYAN >60 Normal >=60 [facility] Comment on above: Performed By: #### C VDTBH #### [facility] [address] [place] [address] [address] Johnna Dixon EGFR-NON AF KENYAN 60 mL/min/1.73m2 Normal >=60 [facility] Comment on above: Performed By: #### C VDTBH #### [facility] [address] [place] [address] [address] Johnna Dixon Globulin (S) [Mass/Vol] 2.9 g/dL Normal [facility] Comment on above: Performed By: #### C VDTBH #### [facility] [address] [address] [address] Johnna Dixon Glucose [Mass/Vol] 153 mg/dL Critically high 74-106 [facility] Comment on above: Performed By: #### C VDTBH #### [facility] [address] [place] [address] [address] Johnna Dixon Potassium [Moles/Vol] 3.9 mmol/L Normal 3.5-5.1 [facility] Comment on above: Performed By: #### C VDTBH #### [facility] [address] [place] [address] [address] Johnna Dixon Protein [Mass/Vol] 5.6 g/dL Critically low 6.4-8.[address] [facility] Comment on above: Performed By: #### C VDTBH #### [facility] [address] [place] [address] [address] Johnna Dixon Sodium [Moles/Vol] 142 mmol/L Normal 136-145 [facility] Comment on above: Performed By: #### C VDTBH #### [facility] [address] [place] [address] Dr. Johnna Dixon Urea nitrogen [Mass/Vol] 14.0 mg/dL Normal 7.0-18.0 [facility] Comment on above: Performed By: #### C VDTBH #### [facility] [address] [place] [address] Dr. Johnna Dixon Urea nitrogen/Creatinine [Mass ratio] 11.7 mg/mg Normal [facility] Comment on above: Performed By: #### C VDTBH #### [facility] [address] [place] [address] Dr. Johnna Dixon CBC AUTO DIFFon 10-05-2022 BASO # 0.0 103/ul Normal 0.0-0.1 [facility] Comment on above: Performed By: #### S PUTGS #### [facility] [address] [place] [address] Dr. Johnna Dixon Basophils/100 WBC (Bld) 0.2 % Normal 0.2-2.0 [facility] Comment on above: Performed By: #### S PUTGS #### [facility] [address] [place] [address] Dr. Johnna Dixon EO # 0.0 103/ul Normal 0.0-0.7 [facility] Comment on above: Performed By: #### S PUTGS #### [facility] [address] [place] [address] Dr. Johnna Dixon Eosinophils/100 WBC (Bld) 0.2 % Critically low 0.9-7.0 [facility] Comment on above: Performed By: #### S PUTGS #### [facility] [address] [place] [address] Dr. Johnna Dixon Erythrocyte distribution width (RBC) [Ratio] 14.1 % Normal 11.0-15.0 [facility] Comment on above: Performed By: #### S PUTGS #### [facility] [address] [place] [address] Dr. Johnna Dixon Hematocrit (Bld) [Volume fraction] 39.9 % Critically low 42.0-54.0 [facility] Comment on above: Performed By: #### S PUTGS #### [facility] [address] [place] [address] Dr. Johnna Dixon Hemoglobin (Bld) [Mass/Vol] 12.8 g/dL Critically low 14.0-18.0 [facility] Comment on above: Performed By: #### S PUTGS #### [facility] [address] [place] [address] Dr. Johnna Dixon IG # 0.01 10e3/ul Normal 0.00-0.03 [facility] Comment on above: Performed By: #### S PUTGS #### [facility] [address] [place] [address] Dr. Johnna Dixon IG % 0.2 % Normal 0.0-0.5 [facility] Comment on above: Performed By: #### S PUTGS #### [facility] [address] [place] [address] Dr. Johnna Dixon LYMPH # 0.7 103/ul Critically low 1.2-3.8 [facility] Comment on above: Performed By: #### S PUTGS #### [facility] [address] [place] [address] Dr. Johnna Dixon Lymphocytes/100 WBC (Bld) 14.3 % Critically low 20.5-60.0 [facility] Comment on above: Performed By: #### S PUTGS #### [facility] [address] [place] [address] Dr. Johnna Dixon MANUAL DIFF REQ NO Normal [facility] Comment on above: Performed By: #### S PUTGS #### [facility] [address] [place] [address] Dr. Johnna Dixon MCH (RBC) [Entitic mass] 30.7 pg Normal 25.9-34.0 [facility] Comment on above: Performed By: #### S PUTGS #### [facility] [address] [place] [address] Dr. Johnna Dixon MCHC (RBC) [Mass/Vol] 32.1 g/dL Normal 29.9-35.2 [facility] Comment on above: Performed By: #### S PUTGS #### [facility] [address] [place] [address] Dr. Johnna Dixon MCV (RBC) [Entitic vol] 95.7 fL Critically high 80.0-94.0 [facility] Comment on above: Performed By: #### S PUTGS #### [facility] [address] [place] [address] Dr. Johnna Dixon MONO # 0.6 103/ul Normal 0.3-0.8 [facility] Comment on above: Performed By: #### S PUTGS #### [facility] [address] [place] [address] Dr. Johnna Dixon Monocytes/100 WBC (Bld) 12.5 % Critically high 1.7-12.0 [facility] Comment on above: Performed By: #### S PUTGS #### [facility] [address] [place] [address] Dr. Johnna Dixon NEUT # 3.6 103/ul Normal 1.4-6.5 [facility] Comment on above: Performed By: #### S PUTGS #### [facility] [address] [place] [address] Dr. Johnna Dixon Neutrophils/100 WBC (Bld) 72.6 % Normal 43.0-75.0 [facility] Comment on above: Performed By: #### S PUTGS #### [facility] [address] [place] [address] Dr. Johnna Dixon Platelet mean volume (Bld) [Entitic vol] 9.5 fL Normal 9.5-13.5 [facility] Comment on above: Performed By: #### S PUTGS #### [facility] [address] [place] [address] Dr. Johnna Dixon PLT 213 103/ul Normal 150-450 [facility] Comment on above: Performed By: #### S PUTGS #### [facility] [address] [place] [address] Dr. Johnna Dixon RBC 4.17 106/ul Critically low 4.70-6.10 [facility] Comment on above: Performed By: #### S PUTGS #### [facility] [address] [place] [address] Dr. Johnna Dixon WBC 5.0 103/ul Normal 4.0-11.0 [facility] Comment on above: Performed By: #### S PUTGS #### [facility] [address] [place] [address] Dr. Johnna Dixon CULTURE BLOODon 10-05-2022 Microscopic examination of blood, culture Culture Observations: NO GROWTH AT 5 DAYS. Normal [facility] Comment on above: Performed By: #### B LDCX2 #### [facility] [address] [place] [address] Dr. Johnna Dixon Microscopic examination of blood, culture Culture Observations: NO GROWTH AT 5 DAYS. Normal [facility] Comment on above: Performed By: #### S PUTGS #### [facility] [address] [place] [address] Dr. Johnna Dixon CULTURE SPUTUMon 10-05-2022 CULTURE SPUTUM Culture Observations: NORMAL RESPIRATORY JONATAN. Normal [facility] Comment on above: Performed By: #### S PUTGS #### [facility] [address] [place] [address] Dr. Johnna Dixon [facility]19 SARS-CoV-2 (COVID-19) RNA REX+probe Ql (Unsp spec) Not detected Normal NOT DETECTED [facility] Comment on above: Result Comment: This test is not yet approved or cleared by the [place] FDA. When there are no FDA-approved or cleared tests available, and other criteria are met, FDA can make tests available under an emergency access mechanism called an Emergency Use Authorization (EUA). The EUA for this test is supported by the Manufacturing Quality Manager of Health and Human Service's (HHS's) declaration [...] SARS-CoV-2. Performed By: #### C VDTB #### [facility] [address] [place] [address] Dr. Johnna Dixon LACTATE/LACTIC ACIDon 2022 Lactate [Moles/Vol] 1.2 mmol/L Normal 0.4-2.0 [facility] Comment on above: Performed By: #### L ACT #### [facility] [address] [place] [address] Dr. Johnna Dixon Lactate [Moles/Vol] 2.4 mmol/L Critically high 0.4-2.0 [facility] Comment on above: Performed By: #### L ACT #### [facility] [address] [place] [address] Dr. Johnna Dixon PROF CHEM 8 (BAS METB)on Anion gap [Moles/Vol] 12.6 mmol/L Normal [facility] Comment on above: Performed By: #### B MP #### [facility] [address] [place] [address] Dr. Johnna Dixon Calcium [Mass/Vol] 8.9 mg/dL Normal 8.5-10.1 [facility] Comment on above: Performed By: #### B MP #### [facility] [address] [place] [address] Dr. Johnna Dixon Chloride [Moles/Vol] 106 mmol/L Normal 98-107 [facility] Comment on above: Performed By: #### B MP #### [facility] [address] [place] [address] Dr. Johnna Dixon CO2 [Moles/Vol] 25.8 mmol/L Normal 21.0-32.0 [facility] Comment on above: Performed By: #### B MP #### [facility] [address] [place] [address] Dr. Johnna Dixon Creatinine [Mass/Vol] 1.41 mg/dL Critically high 0.70-1.30 [facility] Comment on above: Performed By: #### B MP #### [facility] [address] [address] [address] Johnna Dixon EGFR-AF KENYAN >60 Normal >=60 [facility] Comment on above: Performed By: #### B MP #### [facility] [address] [address] [address] Johnna Dixon EGFR-NON AF KENYAN 50 mL/min/1.73m2 Critically low >=60 [facility] Comment on above: Performed By: #### B MP #### [facility] [address] [address] [address] Johnna Dixon Glucose [Mass/Vol] 111 mg/dL Critically high 74-106 [facility] Comment on above: Performed By: #### B MP #### [facility] [address] [address] [address] Johnna Dixon Potassium [Moles/Vol] 3.4 mmol/L Critically low 3.5-5.1 [facility] Comment on above: Performed By: #### B MP #### [facility] [address] [address] [address] Johnna Dixon Sodium [Moles/Vol] 141 mmol/L Normal 136-145 [facility] Comment on above: Performed By: #### B MP #### [facility] [address] [address] [address] Johnna Dixon Urea nitrogen [Mass/Vol] 17.0 mg/dL Normal 7.0-18.0 [facility] Comment on above: Performed By: #### B MP #### [facility] [address] [address] [address] Johnna Dixon Urea nitrogen/Creatinine [Mass ratio] 12.1 mg/mg Normal [facility] Comment on above: Performed By: #### B MP #### [facility] [address] [place] [address] Dr. Johnna Dixon SPUTUM GRAM STAINon 10-06-19 COMMENTS Normal [facility] Comment on above: Performed By: #### S PUTGS #### [facility] [address] [place] [address] Dr. Johnna Dixon DIPHTHEROIDS Normal [facility] Comment on above: Performed By: #### S PUTGS #### [facility] [address] [place] [address] Dr. Johnna Dixon EPITHELIALS <25 Normal [facility] Comment on above: Performed By: #### S PUTGS #### [facility] [address] [address] [address] Johnna Dixon FUNGAL ELEMENTS Normal [facility] Comment on above: Performed By: #### S PUTGS #### [facility] [address] [place] [address] Dr. Johnna Dixon GRAM NEG BACILLI FEW [facility] Comment on above: Performed By: #### S PUTGS #### [facility] [address] [place] [address] Dr. Johnna MILLS NEG DIPPLOCOCCI Normal [facility] Comment on above: Performed By: #### S PUTGS #### [facility] [address] [place] [address] Dr. Johnna Dixon GRAM POS BACILLI Normal [facility] Comment on above: Performed By: #### S PUTGS #### [facility] [address] [place] [address] Dr. Johnna Dixon GRAM POSITIVE COCCI FEW Normal [facility] Comment on above: Performed By: #### S PUTGS #### [facility] [address] [place] [address] Dr. Johnna iDxon WBC (Bld) [#/Vol] 10*3/uL Normal [facility] Comment on above: Performed By: #### S PUTGS #### [facility] [address] [place] [address] Dr. Johnna Dixon SYMPTOMATIC COVID-19 ANTIGEN on 10-05-2022 EUA Statement SEE BELOW Normal [facility] Comment on above: Result Comment: This [...] sooner. Performed By: #### C VDAGS #### [facility] [address] [place] [address] Dr. Johnna Dixon SARS-CoV-2 (COVID-19) RNA RXE+probe Ql (Unsp spec) Negative Normal NEGATIVE [facility] Comment on above: Performed By: #### C VDAGS #### [facility] [address] [place] [address] Dr. Johnna Dixon XR CHEST 1 Von [...] SOCORRO SERRANO Date: 2022-10-05 11:44 Normal [facility] US SINGLE QUAD RT UPPERon US SINGLE [...] SOCORRO HUFFMAN Date: 2022-09-24 09:46 Normal [facility] AMYLASEon 09-21-2022 Amylase [Catalytic activity/Vol] 78 U/L Normal 25-115 [facility] Comment on above: Performed By: #### C VDTBH #### [facility] [address] [place] [address] Dr. Johnna Dixon CBC AUTO DIFFon 09-21-2022 BASO # 0.0 103/ul Normal 0.0-0.1 [facility] Comment on above: Performed By: #### C VDTBH #### [facility] [address] [place] [address] Dr. Johnna Dixon Basophils/100 WBC (Bld) 0.5 % Normal 0.2-2.0 [facility] Comment on above: Performed By: #### C VDTBH #### [facility] [facility] [address] [place] [address] Dr. Johnna Dixon EO # 0.1 103/ul Normal 0.0-0.7 [facility] Comment on above: Performed By: #### C VDTBH #### [facility] [address] [place] [address] Dr. Johnna Dixon Eosinophils/100 WBC (Bld) 1.9 % Normal 0.9-7.0 [facility] Comment on above: Performed By: #### C VDTBH #### [facility] [address] [place] [address] Dr. Johnna Dixon Erythrocyte distribution width (RBC) [Ratio] 14.5 % Normal 11.0-15.0 [facility] Comment on above: Performed By: #### C VDTBH #### [facility] [address] [place] [address] Dr. Johnna Dixon Hematocrit (Bld) [Volume fraction] 39.1 % Critically low 42.0-54.0 [facility] Comment on above: Performed By: #### C VDTBH #### [facility] [address] [place] [address] Dr. Johnna Dixon Hemoglobin (Bld) [Mass/Vol] 12.8 g/dL Critically low 14.0-18.0 [facility] Comment on above: Performed By: #### C VDTBH #### [facility] [address] [place] [address] Dr. Johnna Dixon IG # 0.05 10e3/ul Critically high 0.00-0.03 [facility] Comment on above: Performed By: #### C VDTBH #### [facility] [address] [place] [address] Dr. Johnna Dixon IG % 0.7 % Critically high 0.0-0.5 [facility] Comment on above: Performed By: #### C VDTBH #### [facility] [address] [place] [address] Dr. Johnna Dixon LYMPH # 2.0 103/ul Normal 1.2-3.8 [facility] Comment on above: Performed By: #### C VDTBH #### [facility] [address] [place] [address] Dr. Johnna Dixon Lymphocytes/100 WBC (Bld) 27.4 % Normal 20.5-60.0 [facility] Comment on above: Performed By: #### C VDTBH #### [facility] [address] [place] [address] Dr. Johnna Dixon MANUAL DIFF REQ NO Normal [facility] Comment on above: Performed By: #### C VDTBH #### [facility] [address] [place] [address] Dr. Johnna Dixon MCH (RBC) [Entitic mass] 31.3 pg Normal 25.9-34.0 [facility] Comment on above: Performed By: #### C VDTBH #### [facility] [address] [place] [address] Dr. Johnna Dixon MCHC (RBC) [Mass/Vol] 32.7 g/dL Normal 29.9-35.2 [facility] Comment on above: Performed By: #### C VDTBH #### [facility] [address] [place] [address] Dr. Johnna Dixon MCV (RBC) [Entitic vol] 95.6 fL Critically high 80.0-94.0 [facility] Comment on above: Performed By: #### C VDTBH #### [facility] [address] [place] [address] Dr. Johnna Dixon MONO # 0.5 103/ul Normal 0.3-0.8 [facility] Comment on above: Performed By: #### C VDTBH #### [facility] [address] [place] [address] Dr. Johnna Dixon Monocytes/100 WBC (Bld) 6.9 % Normal 1.7-12.0 [facility] Comment on above: Performed By: #### C VDTBH #### [facility] [address] [place] [address] Dr. Johnna Dixon NEUT # 4.7 103/ul Normal 1.4-6.5 [facility] Comment on above: Performed By: #### C VDTBH #### [facility] [address] [place] [address] Dr. Johnna Dixon Neutrophils/100 WBC (Bld) 62.6 % Normal 43.0-75.0 [facility] Comment on above: Performed By: #### C VDTBH #### [facility] [address] [place] [address] Dr. Johnna Dixon Platelet mean volume (Bld) [Entitic vol] 9.3 fL Critically low 9.5-13.5 [facility] Comment on above: Performed By: #### C VDTBH #### [facility] [address] [place] [address] Dr. Johnna Dixon PLT 235 103/ul Normal 150-450 [facility] Comment on above: Performed By: #### C VDTBH #### [facility] [address] [place] [address] Dr. Johnna Dixon RBC 4.09 106/ul Critically low 4.70-6.10 [facility] Comment on above: Performed By: #### C VDTBH #### [facility] [address] [place] [address] Dr. Johnna Dixon WBC 7.4 103/ul Normal 4.0-11.0 [facility] Comment on above: Performed By: #### C VDTBH #### [facility] [address] [place] [address] Dr. Johnna Dixon LIPASEon 09-21-2022 Lipase [Catalytic activity/Vol] 114.0 U/L Normal 73.0-393.0 [facility] Comment on above: Performed By: #### C VDAGS #### [facility] [address] [place] [address] Dr. Johnna Dixon LIVER PROFILEon 09-21-2022 Albumin [Mass/Vol] 3.9 g/dL Normal 3.4-5.0 [facility] Comment on above: Performed By: #### C VDTBH #### [facility] [address] [place] [address] Dr. Johnna Dixon Albumin/Globulin [Mass ratio] 1.6 {ratio} Normal [facility] Comment on above: Performed By: #### C VDTBH #### [facility] [address] [place] [address] Dr. Johnna Dixon ALP [Catalytic activity/Vol] 59 U/L Normal 46-116 [facility] Comment on above: Performed By: #### C VDTBH #### [facility] [address] [place] [address] Dr. Johnna Dixon ALT [Catalytic activity/Vol] 23 U/L Normal 16-63 [facility] Comment on above: Performed By: #### C VDTBH #### [facility] [address] [place] [address] Dr. Johnna Dixon AST [Catalytic activity/Vol] 8 U/L Critically low 15-37 [facility] Comment on above: Performed By: #### C VDTBH #### [facility] [address] [place] [address] Dr. Johnna Dixon BILI, CONJUGATED 0.1 mg/dL Normal 0.0-0.2 [facility] Comment on above: Performed By: #### C VDTBH #### [facility] [address] [place] [address] Dr. Johnna Dixon Bilirubin [Mass/Vol] 0.3 mg/dL Normal 0.2-1.0 [facility] Comment on above: Performed By: #### C VDTBH #### [facility] [address] [place] [address] Dr. Johnna Dixon Globulin (S) [Mass/Vol] 2.5 g/dL Normal [facility] Comment on above: Performed By: #### C VDTBH #### [facility] [address] [place] [address] Dr. Johnna Dixon Protein [Mass/Vol] 6.4 g/dL Normal 6.4-8.2 [facility] Comment on above: Performed By: #### C VDTBH #### [facility] [address] [place] [address] Dr. Johnna Dixon PROF CHEM 8 (BAS METB)on Anion gap [Moles/Vol] 13.4 mmol/L Normal [facility] Comment on above: Performed By: #### C VDTBH #### [facility] [address] [place] [address] Dr. Johnna Dixon Calcium [Mass/Vol] 8.9 mg/dL Normal 8.5-10.1 [facility] Comment on above: Performed By: #### C VDTBH #### [facility] [address] [place] [address] Dr. Johnna Dixon Chloride [Moles/Vol] 106 mmol/L Normal 98-107 [facility] Comment on above: Performed By: #### C VDTBH #### [facility] [address] [place] [address] Dr. Johnna Dixon CO2 [Moles/Vol] 25.6 mmol/L Normal 21.0-32.0 [facility] Comment on above: Performed By: #### C VDTBH #### [facility] [address] [place] [address] Dr. Johnna Dixon Creatinine [Mass/Vol] 1.21 mg/dL Normal 0.70-1.30 [facility] Comment on above: Performed By: #### C VDTBH #### [facility] [address] [address] [address] Johnna Dixon EGFR-AF KENYAN >60 Normal >=60 [facility] Comment on above: Performed By: #### C VDTBH #### [facility] [address] [place] [address] Dr. Johnna Dixon EGFR-NON AF KENYAN 59 mL/min/1.73m2 Critically low >=60 [facility] Comment on above: Performed By: #### C VDTBH #### [facility] [address] [place] [address] Dr. Johnna Dixon Glucose [Mass/Vol] 115 mg/dL Critically high 74-106 [facility] Comment on above: Performed By: #### C VDTBH #### [facility] [address] [place] [address] Dr. Johnna Dixon Potassium [Moles/Vol] 4.0 mmol/L Normal 3.5-5.1 [facility] Comment on above: Performed By: #### C VDTBH #### [facility] [address] [place] [address] Dr. Johnna Dixon Sodium [Moles/Vol] 141 mmol/L Normal 136-145 [facility] Comment on above: Performed By: #### C VDTBH #### [facility] [address] [address] [address] Johnna Dixon Urea nitrogen [Mass/Vol] 19.0 mg/dL Critically high 7.0-18.0 [facility] Comment on above: Performed By: #### C VDTBH #### [facility] [address] [place] [address] Dr. Johnna Dixon Urea nitrogen/Creatinine [Mass ratio] 15.7 mg/mg Normal [facility] Comment on above: Performed By: #### C VDTBH #### [facility] [address] [address] [address] Johnna Dixon CREATININEon 08-04-2022 Creatinine [Mass/Vol] 1.31 mg/dL Critically high 0.70-1.30 [facility] Comment on above: Performed By: #### C JANIS #### [facility] [address] [address] [address] Johnna Dixon EGFR-AF KENYAN >60 Normal >=60 [facility] Comment on above: Performed By: #### C JANIS #### [facility] [address] [place] [address] Dr. Johnna Dixon EGFR-NON AF KENYAN 54 mL/min/1.73m2 Critically low >=60 [facility] Comment on above: Performed By: #### C JANIS #### [facility] [address] [place] [address] Dr. oJhnna Dixon CTA NECK WO W CONon 08-04-19 [...] ALLI CORTES Date: 2022-08-04 14:04 Normal [facility] US CAROTID ART BILon 023 US [...] ALLI CORTES Date: 2022-07-28 12:00 Normal [facility] XR KNEE RT 4V or >on [...] DEBORAH ZARAGOZA Date: 2022-06-30 17:38 Normal [facility] XR RIBS RT PA Fab 2 [...] SOCORRO SERRANO Date: 2022-05-25 14:51 Normal [facility] XR RIBS RT PA Fab 2 [...] atelectasis and small pleural effusion Normal [facility] CT CHEST WO CONon 04-18-2022 CT [...] by: SOCORRO BANSAL Date: 2022-04-18 16:17 Normal [facility] CULTURE URINEon 03-12-2022 CULTURE URINE Culture Observations: NO GROWTH. Normal [facility] Comment on above: Performed By: #### S PUTGS #### [facility] [address] [address] [address] Johnna Dixon COVID-19 Positive/NegativeOr dered By: Lionel Whitney on 02-13-2022 SARS-CoV-2 (COVID-19) N gene REX+probe Ql (Resp) Negative Negative [facility] Comment on above: Testing for SARS-CoV -2 by RT-PCR This test was developed and its performance characteristics determined by [employer] ([employer] and validated at the [facility]. This test has not been FDA cleared [...] aPTT Coag (PPP) [Time] 34.8 s 25.1-36.5 [facility] Basophils Auto (Bld) [#/Vol] Ordered By: Lionel Whitney on 02-06-2022 Basophils (Bld) [#/Vol] 0.0 10*3/uL 0.0-0.2 [facility] Basophils/100 WBC Auto (Bld) Ordered By: Lionel Whitney on 02-06-2022 Basophils/100 WBC (Bld) 0.8 % . [facility] Blood hemoglobin measurement (mass/volume)Ordered By: Lionel Whitney on 02-06-2022 Hemoglobin (Bld) [Mass/Vol] 13.2 g/dL 13.0-17.0 [facility] Blood leukocytes automated c ount (number/volume)Ordered By: Lionel Whitney on 02-06-2022 WBC (Bld) [#/Vol] 5.7 10*3/uL 4.5-11.0 [facility] Creatinine and Glomerular fi ltration rate.predicted panel (S/P/Bld)Ordered By: Lionel Whitney on 02-06-2022 Creatinine [Mass/Vol] 1.21 mg/dL 0.64-1.27 [facility] Eosinophils Auto (Bld) [#/Vo l]Ordered By: Lionel Whitney on 02-06-2022 Eosinophils (Bld) [#/Vol] 0.1 10*3/uL 0.0-0.45 [facility] Eosinophils/100 WBC Auto (Bl d)Ordered By: Lionel Whitney on 02-06-2022 Eosinophils/100 WBC (Bld) 1.7 % . [facility] Erythrocyte distribution wid th Auto (RBC) [Ratio]Ordered By: Lionel Whitney on 02-06-2022 Erythrocyte distribution width (RBC) [Ratio] 14.2 % 12.0-14.8 [facility] Estimated glomerular filtrat ion rate (GFR) non- AmericanOrdered By: Lionel Whitney on 02-06-2022 GFR/1.73 sq M.predicted among non-blacks MDRD (S/P/Bld) [Vol rate/Area] 59 mL/Min [facility] Hematocrit Auto (Bld) [Volum e fraction]Ordered By: Lionel Whitney on 02-06-2022 Hematocrit (Bld) [Volume fraction] 40.8 % 38.8-50.0 [facility] Laboratory - CoagulationOrde red By: Lionel Whitney on 02-06-2022 PT Coag (PPP) [Time] 11.0 s 9.0-12.9 [facility] - Hematology and Cell countsOrdered By: Lionel Whitney on 02-06-2022 Nucleated RBC/100 WBC (Bld) [Ratio] 0.1 % 0-0.5 [facility] Lymphocytes Auto (Bld) [#/Vo l]Ordered By: Lionle Whitney on 02-06-2022 Lymphocytes (Bld) [#/Vol] 1.6 10*3/uL 1.00-4.8 [facility] Lymphocytes/100 WBC Auto (Bl d)Ordered By: Lionel Whitney on 02-06-2022 Lymphocytes/100 WBC (Bld) 27.4 % . [facility] MCH Auto (RBC) [Entitic mass ]Ordered By: Lionel Whitney on 02-06-2022 MCH (RBC) [Entitic mass] 29.7 pg 27.5-35.2 [facility] MCHC Auto (RBC) [Mass/Vol]Or dered By: Lionel Whitney on 02-06-2022 MCHC (RBC) [Mass/Vol] 32.4 g/dL 32.5-35.6 [facility] MCV Auto (RBC) [Entitic vol] Ordered By: Lionel Whitney on 02-06-2022 MCV (RBC) [Entitic vol] 91.6 fL 83.5-101 [facility] Monocytes Auto (Bld) [#/Vol] Ordered By: Lionel Whitney on 02-06-2022 Monocytes (Bld) [#/Vol] 0.5 10*3/uL 0.0-0.8 [facility] Monocytes/100 WBC Auto (Bld) Ordered By: Lionel Whitney on 02-06-2022 Monocytes/100 WBC (Bld) 8.7 % . [facility] Neutrophils Auto (Bld) [#/Vo l]Ordered By: Lionel Whitney on 02-06-2022 Neutrophils (Bld) [#/Vol] 3.5 10*3/uL 1.8-7.7 [facility] Neutrophils/100 WBC Auto (Bl d)Ordered By: Lionel Whitney on 02-06-2022 Neutrophils/100 WBC (Bld) 61.4 % . [facility] No Panel InformationOrdered By: Lionel Whitney on 02-06-2022 Estimated GFR () > 60 mL/Min [facility] Comment on above: GFR estimated refere nce range: According to KDOQI guidelines, <60 ml/min/1.73m2 is sufficient to diagnose a patient with chronic kidney disease. Pharmacy Creatinine Clearance (Chem N/A [facility] Platelet mean volume Auto (B ld) [Entitic vol]Ordered By: Lionel Whitney on 02-06-2022 Platelet mean volume (Bld) [Entitic vol] 8.4 fL 6.6-10.1 [facility] Platelet poor plasma interna tional normalized ratio (INR) by coagulation assay (relatOrdered By: Lionel Whitney on 02-06-2022 INR Coag (PPP) [Relative time] 1.0 {INR} [facility] Comment on above: INR Therapeutic Rang e [...] 02-06-2022 Platelets (Bld) [#/Vol] 248 10*3/uL 150-450 [facility] RBC Auto (Bld) [#/Vol]Ordere d By: Lionel Whitney on 02-06-2022 RBC (Bld) [#/Vol] 4.45 10*6/uL 3.90-5.60 [facility] Serum or plasma calcium eliezer urement (mass/volume)Ordered By: Lionel Whitney on 02-06-2022 Calcium [Mass/Vol] 9.7 mg/dL 8.2-10.2 [facility] Serum or plasma chloride sammy surement (moles/volume)Ordered By: Lionel Whitney on 02-06-2022 Chloride [Moles/Vol] 99 mmol/L 95-114 [facility] Serum or plasma glucose eliezer urement (mass/volume)Ordered By: Lionel Whitney on 02-06-2022 Glucose [Mass/Vol] 99 mg/dL 70-100 [facility] Comment on above: ADA recommended refe rence range Random Glucose Reference Range is dependent on time and content of last meal. Glucose of more than 200 mg/dL in a nonstressed, ambulatory subject supports the diagnosis of Diabetes Mellitus. Serum or plasma potassium me asurement (moles/volume)Ordered By: Lionel Whitney on 02-06-2022 Potassium [Moles/Vol] 4.4 mmol/L 3.5-5.1 [facility] Serum or plasma sodium measu rement (moles/volume)Ordered By: Lionel Whitney on 02-06-2022 Sodium [Moles/Vol] 135 mmol/L 136-146 [facility] Serum or plasma total carbon dioxide measurement (moles/volume)Ordered By: Lionel Whitney on 02-06-2022 CO2 [Moles/Vol] 26.2 mmol/L 22.0-30.0 [facility] Serum or plasma urea nitroge n measurement (mass/volume)Ordered By: Lionel Whitney on 02-06-2022 Urea nitrogen [Mass/Vol] 20 mg/dL 9-23 [facility] COVID-19 Positive/NegativeOr dered By: Lionel Whitney on 10-27-2021 SARS-CoV-2 (COVID-19) N gene REX+probe Ql (Resp) Negative Negative [facility] Comment on above: Testing for SARS-CoV -2 by RT-PCR This test was developed and its performance characteristics determined by [employer] ([employer] and validated at the [facility]. This test has not been FDA cleared [...] aPTT Coag (PPP) [Time] 36.2 s 25.1-36.5 [facility] Basophils Auto (Bld) [#/Vol] Ordered By: Lionel Whitney on 10-17-2021 Basophils (Bld) [#/Vol] 0.0 10*3/uL 0.0-0.2 [facility] Basophils/100 WBC Auto (Bld) Ordered By: Lionel Whitney on 10-17-2021 Basophils/100 WBC (Bld) 0.6 % [facility] Blood hemoglobin measurement (mass/volume)Ordered By: Lionel Whitney on 10-17-2021 Hemoglobin (Bld) [Mass/Vol] 13.6 g/dL 13.0-17.0 [facility] Blood leukocytes automated c ount (number/volume)Ordered By: Lionel Whitney on 10-17-2021 WBC (Bld) [#/Vol] 5.9 10*3/uL 4.5-11.0 [facility] Creatinine and Glomerular fi ltration rate.predicted panel (S/P/Bld)Ordered By: Lionel Whitney on 10-17-2021 Creatinine [Mass/Vol] 0.96 mg/dL 0.64-1.27 [facility] Eosinophils Auto (Bld) [#/Vo l]Ordered By: Lionel Whitney on 10-17-2021 Eosinophils (Bld) [#/Vol] 0.1 10*3/uL 0.0-0.45 [facility] Eosinophils/100 WBC Auto (Bl d)Ordered By: Lionel Whitney on 10-17-2021 Eosinophils/100 WBC (Bld) 2.0 % [facility] Erythrocyte distribution wid th Auto (RBC) [Ratio]Ordered By: Lionel Whitney on 10-17-2021 Erythrocyte distribution width (RBC) [Ratio] 14.5 % 12.0-14.8 [facility] Estimated glomerular filtrat ion rate (GFR) non- AmericanOrdered By: Lionel Whitney on 10-17-2021 GFR/1.73 sq M.predicted among non-blacks MDRD (S/P/Bld) [Vol rate/Area] > 60 mL/Min [facility] Hematocrit Auto (Bld) [Volum e fraction]Ordered By: Lionel Whitney on 10-17-2021 Hematocrit (Bld) [Volume fraction] 41.5 % 38.8-50.0 [facility] Laboratory - CoagulationOrde red By: Lionel Whitney on 10-17-2021 PT Coag (PPP) [Time] 11.0 s 9.0-12.9 [facility] Laboratory - Hematology and Cell countsOrdered By: Lionel Whitney on 10-17-2021 Nucleated RBC/100 WBC (Bld) [Ratio] 0.0 % 0-0.5 [facility] Lymphocytes Auto (Bld) [#/Vo l]Ordered By: Lionel Whitney on 10-17-2021 Lymphocytes (Bld) [#/Vol] 1.6 10*3/uL 1.00-4.8 [facility] Lymphocytes/100 WBC Auto (Bl d)Ordered By: Lionel Whitney on 10-17-2021 Lymphocytes/100 WBC (Bld) 26.8 % [facility] MCH Auto (RBC) [Entitic mass ]Ordered By: Lionel Whitney on 10-17-2021 MCH (RBC) [Entitic mass] 29.3 pg 27.5-35.2 [facility] MCHC Auto (RBC) [Mass/Vol]Or dered By: Lionel Whitney on 10-17-2021 MCHC (RBC) [Mass/Vol] 32.7 g/dL 32.5-35.6 [facility] MCV Auto (RBC) [Entitic vol] Ordered By: Lionel Whitney on 10-17-2021 MCV (RBC) [Entitic vol] 89.8 fL 83.5-101 [facility] Monocytes Auto (Bld) [#/Vol] Ordered By: Lionel Whitney on 10-17-2021 Monocytes (Bld) [#/Vol] 0.6 10*3/uL 0.0-0.8 [facility] Monocytes/100 WBC Auto (Bld) Ordered By: Lionel Whitney on 10-17-2021 Monocytes/100 WBC (Bld) 10.6 % [facility] Neutrophils Auto (Bld) [#/Vo l]Ordered By: Lionel Whitney on 10-17-2021 Neutrophils (Bld) [#/Vol] 3.5 10*3/uL 1.8-7.7 [facility] Neutrophils/100 WBC Auto (Bl d)Ordered By: Lionel Whitney on 10-17-2021 Neutrophils/100 WBC (Bld) 60.0 % [facility] No Panel InformationOrdered By: Lionel Whitney on 10-17-2021 Estimated GFR () > 60 mL/Min [facility] Comment on above: GFR estimated refere nce range: According to KDOQI guidelines, <60 ml/min/1.73m2 is sufficient to diagnose a patient with chronic kidney disease. Pharmacy Creatinine Clearance (Chem N/A [facility] Platelet mean volume Auto (B ld) [Entitic vol]Ordered By: Lionel Whitney on 10-17-2021 Platelet mean volume (Bld) [Entitic vol] 8.3 fL 6.6-10.1 [facility] Platelet poor plasma interna tional normalized ratio (INR) by coagulation assay (relatOrdered By: Lionel Whitney on 10-17-2021 INR Coag (PPP) [Relative time] 1.0 {INR} [facility] Comment on above: INR Therapeutic Rang e [...] 10-17-2021 Platelets (Bld) [#/Vol] 249 10*3/uL 150-450 [facility] RBC Auto (Bld) [#/Vol]Ordere d By: Lionel Whitney on 10-17-2021 RBC (Bld) [#/Vol] 4.62 10*6/uL 3.90-5.60 [facility] Serum or plasma calcium eliezer urement (mass/volume)Ordered By: Lionel Whitney on 10-17-2021 Calcium [Mass/Vol] 9.7 mg/dL 8.2-10.2 [facility] Serum or plasma chloride sammy surement (moles/volume)Ordered By: Lionel Whitney on 10-17-2021 Chloride [Moles/Vol] 101 mmol/L 95-114 [facility] Serum or plasma glucose eliezer urement (mass/volume)Ordered By: Lionel Whitney on 10-17-2021 Glucose [Mass/Vol] 87 mg/dL 70-100 [facility] Comment on above: ADA recommended refe rence range Random Glucose Reference Range is dependent on time and content of last meal. Glucose of more than 200 mg/dL in a nonstressed, ambulatory subject supports the diagnosis of Diabetes Mellitus. Serum or plasma potassium me asurement (moles/volume)Ordered By: Lionel Whitney on 10-17-2021 Potassium [Moles/Vol] 4.4 mmol/L 3.5-5.1 [facility] Serum or plasma sodium measu rement (moles/volume)Ordered By: Lionel Whitney on 10-17-2021 Sodium [Moles/Vol] 136 mmol/L 136-146 [facility] Serum or plasma total carbon dioxide measurement (moles/volume)Ordered By: Lionel Whitney on 10-17-2021 CO2 [Moles/Vol] 25.6 mmol/L 22.0-30.0 [facility] Serum or plasma urea nitroge n measurement (mass/volume)Ordered By: Lionel Whitney on 10-17-2021 Urea nitrogen [Mass/Vol] 18 mg/dL 9-23 [facility] Vital Signs Date Time Vital Sign Value Performing Clinician Facility 10-11-2023 15:27-0400 Body height 182.88 cm MD Yolande Monterroso Work Phone: [facility] 10-11-2023 15:27-0400 Body mass index (BMI) [Ratio] 25 kg/m2 MD Yolande Monterroso Work Phone: [facility] 10-11-2023 15:27-0400 Body temperature 97.2 [degF] MD Yolande Monterroso Work Phone: [facility] 10-11-2023 15:27-0400 Body weight 83.91 kg MD Yolande Monterroso Work Phone: [facility] 10-11-2023 15:27-0400 Diastolic blood pressure 88 mm[Hg] MD Yolande Monterroso Work Phone: [facility] 10-11-2023 15:27-0400 Heart rate 79 /min MD Yolande Monterroso Work Phone: [facility] 10-11-2023 15:27-0400 Systolic blood pressure 146 mm[Hg] MD Yolande Monterroso Work Phone: [facility] 10-04-2023 10:35-0400 Blood Pressure Location Lionel WHITNEY [facility] 10-04-2023 10:35-0400 Diastolic blood pressure 88 mm[Hg] Lionel WHITNEY [facility] 10-04-2023 10:35-0400 Heart rate 72 /min Lionel WHITNEY [facility] 10-04-2023 10:35-0400 Respiratory rate 16 /min Lionel WHITNEY [facility] 10-04-2023 10:35-0400 Systolic blood pressure 136 mm[Hg] Lionel WHITNEY [facility] 08-12-2023 11:10-0500 Body height 182.88 cm MD Yolande Monterroso Work Phone: [facility] 08-12-2023 11:10-0500 Body mass index (BMI) [Ratio] 24.3 kg/m2 MD Yolande Monterroso Work Phone: [facility] 08-12-2023 11:10-0500 Body weight 81.19 kg MD Yolande Monterroso Work Phone: [facility] 02-10-2023 14:16-0400 Blood Pressure Location Qamar BOWERSL [facility] 02-10-2023 14:16-0400 Diastolic blood pressure 80 mm[Hg] Qamar NILL [facility] 02-10-2023 14:16-0400 Heart rate 70 /min Qamar NILL [facility] 02-10-2023 14:16-0400 Respiratory rate 16 /min Qamar NILL [facility] [place] 02-10-2023 14:16-0400 Systolic blood pressure 124 mm[Hg] Qamar BOWERSL [facility] [place] 12-03-2022 10:20-0400 Body height 182.88 cm Zoran Chavez Other [employer] Other 12-03-2022 10:20-0400 Body mass index (BMI) [Ratio] 25.49 kg/m2 Zoran Chavez Other [employer] Other 12-03-2022 10:20-0400 Body weight 85.28 kg Zoran Chavez Other [employer] Other 10-22-2022 10:20-0400 Body height 182.88 cm Zoran Chavez Other [employer] Other 10-22-2022 10:20-0400 Body mass index (BMI) [Ratio] 25.63 kg/m2 Zoran Chavez Other [employer] Other 10-22-2022 10:20-0400 Body weight 85.73 kg Zoran Chavez Other [employer] Other 10-22-2022 10:20-0400 Diastolic blood pressure 80 mm[Hg] Zoran Chavez Other [facility] [employer] Other 10-22-2022 10:20-0400 Systolic blood pressure 110 mm[Hg] Zoran Chavez Other [facility] [employer] Other 02-24-2022 10:43-0400 Blood Pressure Location Lioneljameel WHITNEY [facility] 02-24-2022 10:43-0400 Diastolic blood pressure 80 mm[Hg] Lionel WHITNEY [facility] 02-24-2022 10:43-0400 Heart rate 65 /min Lionel WHITNEY [facility] 02-24-2022 10:43-0400 Respiratory rate 16 /min Lionel WHITNEY [facility] 02-24-2022 10:43-0400 Systolic blood pressure 140 mm[Hg] Lionel WHITNEY [facility] 02-17-2022 15:15-0400 Diastolic blood pressure 83 mm[Hg] MD Yolande Monterroso Work Phone: [facility] 02-17-2022 15:15-0400 Heart rate 58 /min MD Yolande Monterroso Work Phone: [facility] 02-17-2022 15:15-0400 Respiratory rate 16 /min MD Yolande Monterroso Work Phone: [facility] 02-17-2022 15:15-0400 SaO2% (BldA) [Mass fraction] 95 % MD Yolande Monterroso Work Phone: [facility] 02-17-2022 15:15-0400 Systolic blood pressure 166 mm[Hg] MD Yolande Monterroso Work Phone: [facility] 02-17-2022 14:30-0400 Body height 182.88 cm MD Yolande Monterroso Work Phone: [facility] 02-17-2022 14:30-0400 Body mass index (BMI) [Ratio] 26.2 kg/m2 MD Yolande Monterroso Work Phone: [facility] 02-17-2022 14:30-0400 Body weight 87.7 kg MD Yolande Monterroso Work Phone: [facility] 02-17-2022 14:17-0400 Body temperature 97.6 [degF] MD Yolande Monterroso Work Phone: [facility] 02-17-2022 13:52-0400 Inhaled oxygen flow rate 10 L/min MD Yolande Monterroso Work Phone: [facility] 10-17-2021 11:42-0400 Body height 180.34 cm MD Yolande Monterroso Work Phone: [facility] 10-17-2021 11:42-0400 Body mass index (BMI) [Ratio] 27 kg/m2 MD Yolande Monterroso Work Phone: [facility] 10-17-2021 11:42-0400 Body temperature 98.4 [degF] MD Yolande Monterroso Work Phone: [facility] 10-17-2021 11:42-0400 Body weight 88 kg MD Yolande Monterroso Work Phone: [facility] 10-17-2021 11:42-0400 Diastolic blood pressure 90 mm[Hg] MD Yolande Monterroso Work Phone: [facility] 10-17-2021 11:42-0400 Heart rate 64 /min MD Yolande Monterroso Work Phone: [facility] 10-17-2021 11:42-0400 SaO2% (BldA) [Mass fraction] 100 % MD Yolande Monterroso Work Phone: [facility] 10-17-2021 11:420400 Systolic blood pressure 172 mm[Hg] MD Yolande Monterroso Work Phone: [facility] Encounters Encounter Date Encounter Type Care Provider Facility Start: 10-26-2023 End: 10-26-2023 ambulatory Lionel WHITNEY Facility:[facility] Start: 10-26-2023 End: 10-26-2023 Patient encounter procedure Lionel WHITNEY [facility] Start: 10-11-2023 End: 10-11-2023 ambulatory MD Yolande Monterroso Work Phone: [facility] Work Phone: Start: 10-11-2023 End: 10-11-2023 Patient encounter procedure MD Yolande Monterroso Work Phone: [facility] Work Phone: Start: 10-04-2023 End: 10-04-2023 ambulatory Lionel WHITNEY Facility:[facility] Start: 10-04-2023 End: 10-04-2023 Patient encounter procedure Lionel WHITNEY [facility] Start: 09-30-2023 End: 09-30-2023 ambulatory KELLY ORTIZ Not Available Start: 09-09-2023 End: 09-09-2023 ambulatory VASU GALEANO Not Available Start: 08-28-2023 End: 08-28-2023 ambulatory Yolande Monterroso Facility:[facility] Start: 08-28-2023 End: 08-28-2023 Patient encounter procedure MD Yolande Monterroso Work Phone: [facility] [place] Work Phone: Start: 08-12-2023 End: 08-12-2023 ambulatory Yolande Monterroso Facility:[facility] Start: 08-12-2023 End: 08-12-2023 ambulatory MD Yolande Monterroso Work Phone: [facility] Work Phone: Start: 08-12-2023 End: 08-12-2023 Patient encounter procedure MD Yolande Monterroso Work Phone: [facility] [place] Work Phone: Start: 08-12-2023 End: 08-12-2023 ambulatory MD Yolande Monterroso Work Phone: [facility] Work Phone: Start: 08-12-2023 End: 08-12-2023 Patient encounter procedure MD Yolande Monterroso Work Phone: [facility] Work Phone: Start: 07-26-2023 End: 07-27-2023 ambulatory Dereck Landa MD Facility:[facility] Start: 04-27-2023 End: 04-27-2023 ambulatory Lionel WHITNEY Facility:[facility] Start: 04-27-2023 End: 04-27-2023 Patient encounter procedure Lionel WHITNEY [facility] Start: 03-15-2023 End: 03-16-2023 ambulatory Dereck Landa MD Facility:[facility] Start: 03-10-2023 End: 03-10-2023 ambulatory Qamar SMITH Facility:CD:[id number] Start: 02-10-2023 End: 02-10-2023 ambulatory Qamar SMITH Facility: [facility] Start: 02-10-2023 End: 02-10-2023 Patient encounter procedure Qamar SMITH [facility] Start: 01-20-2023 End: 01-20-2023 ambulatory Lionel WHITNEY Facility:[facility] Start: 01-14-2023 End: 01-14-2023 ambulatory Lionel WHITNEY Facility:CD:[id number] Start: 01-05-2023 End: 01-05-2023 ambulatory Lionel WHITNEY Facility:[facility] Start: 01-05-2023 End: 01-05-2023 Patient encounter procedure Lionel Burgos DEVONTE [facility] Start: 01-01-2023 End: 01-01-2023 ambulatory Yolande Monterroso Facility:[facility] Start: 01-01-2023 End: 01-01-2023 ambulatory MD Yolande Monterroso Work Phone: [facility] Work Phone: Start: 01-01-2023 End: 01-01-2023 Patient encounter procedure MD Yolande Monterroso Work Phone: [facility] [place] Work Phone: Start: 12-28-2022 End: 12-29-2022 ambulatory Dereck Landa MD Facility:[facility] Start: 12-14-2022 End: 12-15-2022 ambulatory Dereck Landa MD Facility:[facility] Start: 12-03-2022 End: 12-03-2022 ambulatory Zoran Chavez Other [employer] Other Start: 12-03-2022 Office outpatient visit 15 minutes Zoran Chavez [facility] Start: 11-20-2022 End: 11-21-2022 ambulatory DERECK LANDA Facility:[facility] Start: 10-28-2022 End: 10-29-[address] NELLY HERRERA Facility:[facility] Start: 10-27-2022 End: 11-18-[address] ZORAN CHAVEZ Facility:[facility] Start: 10-23-2022 End: 10-24-[address] ZORAN CHAVEZ Facility:[facility] Start: 10-22-2022 End: 10-22-2022 ambulatory Zoran Chavez Other [employer] Other Start: 10-22-2022 Office outpatient visit 15 minutes Zoran Chavez [facility] Start: 10-05-2022 End: 10-06-[address] YOLANDE MONTERROSO . Facility:[facility] Start: 09-24-2022 End: 09-25-[address] YOLANDE MONTERROSO . Facility:[facility] Start: 09-21-2022 End: 09-22-[address] LIONEL WHITNEY . Facility:[facility] Start: 09-21-2022 End: 09-21-2022 Patient encounter procedure Lionel WHITNEY [facility] Start: 08-19-2022 End: 08-20-[address] LIONEL WHITNEY . Facility:[facility] Start: 08-17-2022 End: 08-17-2022 Patient encounter procedure Lionel WHITNEY [facility] Start: 08-04-2022 End: 08-05-[address] YOLANDE MONTERROSO . Facility:[facility] Start: 07-28-2022 End: 07-29-[address] YOLANDE MONTERROSO . Facility:[facility] Start: 07-23-2022 End: 07-23-[address] LIONEL WHITNEY . Facility:[facility] Start: 07-20-2022 End: 07-20-2022 Patient encounter procedure Lionel WHITNEY [facility] Start: 07-07-2022 End: 07-07-2022 Patient encounter procedure Lionel WHITNEY [facility] Start: 06-30-2022 End: 07-01-[address] YOLANDE MONTERROSO . Facility:[facility] Start: 06-04-2022 End: 06-04-[address] YOLANDE MONTERROSO . Facility:[facility] Start: 05-25-2022 End: 05-26-[address] YOLANDE MONTERROSO . Facility:[facility] Start: 05-18-2022 End: 05-18-2022 Patient encounter procedure Lionel WHITNEY [facility] Start: 04-27-2022 End: 04-28-[address] YOLANDE MONTERROSO . Facility:[facility] Start: 04-18-2022 End: 04-18-[address] FELICIA GALDAMEZ . Facility:[facility] Start: 04-15-2022 End: 04-15-2022 Patient encounter procedure Lionel WHITNEY [facility] Start: 03-26-2022 End: 03-26-[address] LIONEL WHITNEY . Facility:[facility] Start: 03-12-2022 End: 03-13-[address] YOLANDE MONTERROSO . Facility:[facility] Start: 03-09-2022 End: 03-09-2022 Patient encounter procedure [facility]IT[facility] Start: 02-27-2022 End: 02-27-2022 Lab Drop off Lionel WHITNEY [facility] Start: 02-27-2022 End: 02-27-2022 Patient encounter procedure [facility] WHITNEY [facility] Start: 02-24-2022 End: 02-24-2022 Patient encounter procedure Lionel WHITNEY [facility] Start: 02-17-2022 End: 02-17-2022 Admission to same day surgery center MD [facility]ande [facility] [place] Start: 02-13-2022 End: 02-13-2022 Patient encounter procedure MD Yolande Monterroso Work Phone: [facility] Start: 02-06-2022 End: 02-06-2022 Patient encounter procedure MD Yoladne Monterroso Work Phone: [facility] Start: 11-11-2021 End: 11-11-2021 Patient encounter procedure Lionel WHITNEY [facility] Start: 11-05-2021 End: 11-05-2021 Patient encounter procedure Lionel WHITNEY [facility] Start: 10-29-2021 End: 10-29-2021 Admission to same day surgery center MD oYlande Monterroso Work Phone: [facility] [place] Start: 10-27-2021 End: 10-27-2021 Patient encounter procedure MD Yolande Monterroso Work Phone: [facility] Start: 10-17-2021 End: 10-17-2021 Patient encounter procedure MD Yolande Monterroso Work Phone: [facility] Procedures Date Procedure Procedure [...] above: Performed By: #### P SAD #### [facility] [address] [place] [address] Dr. Johnna Dixon Start: 02-17-2022 Transurethral resect [...] WHITNEY Comment on above: had recently at [facility] Start: 05-21-2014 Colonoscopy Qamar DOSS Start: 06-21-2010 [...] Activity Detail Author Start: 10-09-2024 ambulatory Ambulatory Facility:[facility] Start: 08-12-2023 Patient referral [facility] Work Phone: Start: 08-12-2023 X-ray of cervical spine XR cer vical spine w flex/ext [facility] Start: 08-12-2023 X-ray of lumbar spin e, six views including bending views XR lumbar spine 6V w bending [facility] Start: 08-12-2023 XR Cervical spine Vi ews W flexion and W extension [facility] Start: 08-12-2023 XR Lumbar spine Views [facility] Start: 02-17-2022 End: 02-17-2022 [facility] Work Phone: Start: 02-17-2022 Transurethral resect ion of bladder neoplasm OR Cysto/TURBT/Bladder Biopsy/Fulg (Not Applicable) [facility] Start: 02-17-2022 End: 02-17-2022 Admission to same day surgery center Departed Surgical Day Care [facility] [place] Start: 02-13-2022 End: 02-13-2022 Patient encounter procedure Departed Clinical [facility] Testing Microbial culture of sputum [facility] MR Cervical spine WO and W contrast IV [facility] Patient referral [facility] Work Phone: Immunizations Immunization Date Immunization Notes Care Provider Gary francisco 07-13-2023 zoster vaccine recombinant Lionel WHITNEY [facility] 03-23-2023 influenza virus vacc ine, unspecified formulation Lionel WHITNEY [facility] 03-23-2023 zoster vaccine recombinant Lionel WHITNEY [facility] 04-16-2022 SARS-CoV-2 (COVID-19 ) [id number] Qamar SMITH [facility] 03-27-2022 influenza virus vacc ine, unspecified formulation Qamar SMITH [facility] 05-06-2021 COVID-19 mRNA-1273 (Moderna) MD Yolande Monterroso Work Phone: [facility] 09-19-2020 COVID-19 mRNA-1273 (Moderna) MD Yolande Monterroso Work Phone: [facility] Comment on above: Result Comment: 2022: [id number] 08-22-2020 COVID-19 mRNA-1273 (Moderna) MD Yolande Monterroso Work Phone: [facility] Comment on above: Result Comment: 2022: [id number] 06-21-2020 SARS-CoV-2 (COVID-19 ) mRNA-1273 vaccine Lionel WHITNEY [facility] 05-23-2020 influenza virus vacc ine, unspecified formulation Qamar SMITH [facility] 04-03-2020 influenza virus vacc ine, unspecified formulation Qamar SMITH [facility] 05-29-2019 influenza virus vacc ine, unspecified formulation [employer] [facility] 04-14-2019 influenza, unspecifi ed formulation [employer] [facility] 09-26-2018 tetanus and diphther ia toxoids, adsorbed, preservative free, for adult use (2 Lf of tetanus toxoid and 2 Lf of diphtheria toxoid) [employer] [facility] 10-11-2017 pneumococcal polysaccharide vaccine, 23 valent [employer] [facility] 07-22-2016 pneumococcal conjuga te vaccine, 13 valent [employer] [facility] 06-29-2013 tetanus toxoid, redu mirtha diphtheria toxoid, and acellular pertussis vaccine, adsorbed [employer] [facility] 03-10-2000 Td(adult) unspecifie d formulation [employer] [facility] Payers Date Payer Category Payer Self-pay [id number] 2022 Unknown 1958 Medicare [id number] 1958 Unknown [id number] 2.16.840.1.345712.19 1951 Unknown [id number] 2.16.840.1.153195.3.579.2. 593 1951 Unknown [id number] 2.16.840.1.987577.3.579.2. 593 1951 Unknown [id number] 2.16.840.1.006744.3.579.2. 593 1951 Unknown [id number] 2.16.840.1.691333.3.579.2. 593 1951 Unknown [id number] 2.16.840.1.024728.3.579.2. 593 1951 Unknown [id number] 2.16.840.1.037865.3.579.2. 593 1951 Unknown [id number] 2.16.840.1.048831.3.579.2. 593 1951 Unknown [id number] 2.16.840.1.635840.3.579.2. 593 1951 Unknown [id number] 2.16.840.1.204762.3.579.2. 593 1951 Unknown [id number] 2.16.840.1.400400.3.579.2. 593 1951 Unknown [id number] 2.16.840.1.508098.3.579.2. 593 1951 Unknown [id number] 2.16.840.1.611978.3.579.2. 593 1951 Unknown [id number] 2.16.840.1.152336.3.579.2. 593 1951 Unknown [id number] 2.16.840.1.288789.3.579.2. 593 1951 Unknown [id number] 2.16.840.1.644415.3.579.2. 593 1951 Unknown [id number] 2.16.840.1.271981.3.579.2. 593 1951 Unknown [id number] 2.16.840.1.703215.3.579.2. 593 1951 Unknown [id number] 2.16.840.1.147462.3.579.2. 593 1951 Unknown [id number] 2.16.840.1.997292.3.579.2. 593 1951 Unknown [id number] 2.16.840.1.431935.3.579.2. 196 1951 Unknown [id number] 2.16.840.1.818843.3.579.2. 196 1951 Unknown [id number] 2.16.840.1.519376.3.579.2. 196 1951 Unknown [id number] 2.16.840.1.624043.3.579.2. 196 1951 Unknown [id number] 2.16.840.1.681378.3.579.2. 196 1951 Unknown [id number] 2.16.840.1.043510.3.579.2. 1259 1951 Unknown [id number] 2.16.840.1.003851.3.579.2. 1259 1951 Unknown [id number] 2.16.840.1.290245.3.579.2. 727 1951 Unknown [id number] 2.16.840.1.641704.3.579.2. 727 1951 Unknown [id number] 2.16.840.1.473210.3.579.2. 727 1951 Unknown [id number] 2.16.840.1.756318.3.579.2. 727 1951 Unknown [id number] 2.16.840.1.796467.3.579.2. 727 1951 Unknown [id number] 2.16.840.1.492899.3.579.2. 727 1951 Unknown [id number] 2.16.840.1.170636.3.579.2. 727 1951 Unknown [id number] 2.16.840.1.935719.3.579.2. 727 1951 Unknown [id number] 2.16.840.1.481988.3.579.2. 727 Medicare Medicare [id number] Private Health Insurance [id number] Unknown [facility] [[email or web address]] [id number] Unknown [id number] 2.16.840.1.210260.3.579.2. 531 Unknown [id number] 2.16.840.1.152110.3.579.2. 531 Unknown [id number] 2.16.840.1.505598.3.579.2. 531 Social History Date Type Detail Facility Start: 10-17-2021 End: 10-04-2023 Tobacco smoking status NHIS Ex-smoker (finding) [facility] Comment on above: pt quit smoking 10+ yrs ago Start: 1950 Sex Assigned At Male [facility] Start: 11-05-2021 Tobacco smoking status Never s moked tobacco (finding) [facility] Tobacco smoking status Never [facility] [place] Comment on above: pt quit smoking 10+ yrs ago Sex Assigned At Male [facility] Medical Equipment Procedure Code Equipment Code Equipment Original Text Equipment Identifier Dates Transurethral resection of bladder tumor (TURBT) with cystoscopy Polymeric ureteral stent ()[id number] FDA Start: 10-29-2021 Decompression, spine, cervical, posterior approach Bone-screw internal spinal fixation system, non-sterile ()[id number] FDA Start: 04-18-2020 Decompression, spine, cervical, posterior approach Bone-screw internal spinal fixation system, non-sterile ()[id number] FDA Start: 04-18-2020 Decompression, spine, cervical, posterior approach Bone-screw internal spinal fixation system, non-sterile ()[id number] FDA Start: 04-18-2020 Decompression, spine, cervical, posterior approach Bone-screw internal spinal fixation system, non-sterile ()[id number] FDA Start: 04-18-2020 Decompression, spine, cervical, posterior approach Bone-screw internal spinal fixation system, non-sterile ()[id number] FDA Start: 04-18-2020 Goals Date Patient Goal Desired Activity /State Functional Status Date Assessment Result Facility 10-26-2023 Functional Status N/A [facility] 10-04-2023 Functional Status N/A [facility] 04-27-2023 Functional Status N/A [facility] 02-10-2023 Functional Status N/A General [facility] 01-05-2023 Functional Status N/A [facility] 02-24-2022 Functional Status N/A [facility] Clinical Notes 11-04-2021 to 10-26-2023 Note Date [...] Up Care 09/29/2023 09:06:13 With:Lionel WHITNEY Address: [address] [place] [address]- Business (1) When: Unknown Comments:Office will call to schedule follow up [facility] 10-26-2023 Note [id number] [facility] 10-26-2023 Note Custom Cystoscopy ? Voiding after [...] fever over 100 degrees. [facility] 10-04-2023 Hospital Discharge instructions Patient Education 10/04/2023 [...] if anything looks unusual. Men with a imxcxj-kuyk-bdqcdt risk for skin cancer may want to see a end user support specialist (clerical administrative assistant) for an annual body check. What are the benefits of screening? Cancer screening is done to look for cancer in the very early stages, before it spreads and becomes harder to treat and before you would start to notice symptoms. Finding cancer early improves the chances of successful treatment. It may save your life. Where to find more information [employer]: www.cancer.org Centers for Disease Control and Prevention: www.cdc.gov National Cancer [place]: www.cancer.gov Contact a health care provider if: [...] provider. Document Revised: 11/03/2021 Document Reviewed: 05/03/2020 [employer] Patient Education 2022 [employer]. Follow Up Care 10/01/2022 10:55:16 With:DEVONTE NOBLE, Lionel Burgos, URL Address: [facility] [address] [place] [address]- [phone] When: Unknown Comments:1 yr w/ PSA [facility] 04-27-2023 Hospital Discharge instructions Patient Education 04/27/2023 [...] WHITNEY Address: [facility] [address] [place] [address]- Business (1) When: Unknown Comments:Office will call to schedule follow up [facility] 04-27-2023 Note [id number] [facility] 04-27-2023 Note Custom Cystoscopy ? Voiding [...] Urology [address], [place] [address]- Business (1) When: Unknown Comments:Office will call to schedule follow up [facility] 01-05-2023 Note [id number] [facility] 01-05-2023 Note Custom Cystoscopy ? Voiding [...] M46.1) Nov, Neurogenic claudication (ICD-10 - R29.818) [employer] Other 05-04-2023 Evaluation note* Encounter Date Diagnosis [...] spine October, Neurogenic claudication (ICD-10 - R29.818) [employer] [facility] Other 04-03-2023 Hospital Discharge instructions Patient Education [...] if anything looks unusual. Men with a znrrha-fajx-arllkx risk for skin cancer may want to see a end user support specialist (clerical administrative assistant) for an annual body check. Where to find more information [employer] [place]: https://www.cancer.gov/about-cancer/screening Centers for Disease Control and Prevention: https://www.cdc.gov/cancer/dcpc/prevention/screening.htm [employer]: https://www.cancer.org/latest-news/2-ywhtwm-estpcoavs-ygrvb-trm-okb.html Contact a health care provider if: You [...] 03/04/2017 Document Revised: 02/24/2019 Document Reviewed: 03/04/2017 [employer] Patient Education 2020 [employer]. Follow Up Care 09/19/2021 11:05:08 With:DEVONTE NOBLE, Lionel Burgos, URL Address: [facility] [address] , [place] [address]- When: Unknown [facility] [place] 01-17-2023 Hospital Discharge instructions Patient Education [...] [facility] [address] [place] [address]- Business (1) When: Unknown Comments:Office will call to schedule follow up [facility]09-06-2022 Hospital Discharge instructions Patient Education 02/24/2022 [...] if anything looks unusual. Men with a mpbrgy-htyg-egfdde risk for skin cancer may want to see a end user support specialist (clerical administrative assistant) for an annual body check. Where to find more information National Cancer [place]: https://www.cancer.gov/about-cancer/screening Centers for Disease Control and Prevention: https://www.cdc.gov/cancer/dcpc/prevention/screening.htm [employer]: https://www.cancer.org/latest-news/8-fsbgrl-pbghhztpp-bbfpy-lql-oru.html Contact a health care provider if: You [...] 03/04/2017 Document Revised: 02/24/2019 Document Reviewed: 03/04/2017 [employer] Patient Education 2020 [employer]. Follow Up Care 02/05/2022 13:48:40 With:DEVONTE NOBLE, CAROLINA Salazar Address: [facility] [address] [place] [phone] When: Unknown [facility] James 05-24-2022 Hospital Discharge instructions Patient Education [...] WHITNEY Address: [facility] [address] [place] [address]- Business (1) When: Unknown Comments:Keep scheduled appointment [facility]05-17-2022 Hospital Discharge instructions Patient Education 11/04/2021 [...] who: Are older than age 65. Are -Hungarian. Are obese. Have a family history of [...] cells. Follow these instructions at home: Take zqdu-enu-ihzysqu and prescription medicines only as told by [...] 06/07/2006 Document Revised: 05/20/2018 Document Reviewed: 02/15/2017 [employer] Patient Education 2020 [employer]. Follow Up Care 10/14/2021 11:26:04 With:Lionel WHITNEY MD, URL Address: [facility] [address], [place] [address]- When: Unknown [facility] [employer] + Plan note Future Appointments Appointment Date:09/21/2022 09:45:00 AM Scheduled Provider:Lionel WHITNEY MD Location:[facility] [place] Appointment Type:URO Office Visit [facility] [employer] + Plan note Future Appointments Appointment Date:03/09/2022 09:00:00 AM Scheduled Provider: Location:[facility] [place] Appointment Type:URO Nurse Visit Appointment Date:04/15/2022 09:00:00 AM Scheduled Provider: Location:[facility] [place] Appointment Type:URO Nurse Visit Appointment Date:09/21/2022 09:45:00 AM Scheduled Provider:Lionel WHITNEY MD Location:[facility] [place] Appointment Type:URO Office Visit [facility] [employer]ation + Plan note Future Appointments Appointment Date:03/09/2022 09:00:00 AM Scheduled Provider: Location:[facility] [place] Appointment Type:URO Nurse Visit Appointment Date:04/15/2022 09:00:00 AM Scheduled Provider: Location:[facility] [place] Appointment Type:URO Nurse Visit Appointment Date:09/21/2022 09:45:00 AM Scheduled Provider:Lionel WHITNEY MD Location:[facility] [place] Appointment Type:URO Office Visit Diagnostic Tests Pending * [facility]rine [facility] Future Appointments Appointment Date:04/15/2022 09:00:00 AM Scheduled Provider: [facility] Appointment Type:URO Nurse Visit Appointment Date:09/21/2022 09:45:00 AM Scheduled Provider:Lionel WHITNEY MD [facility] Appointment Type:URO Office Visit [facility] evaluation + Plan note Future Appointments Appointment Date:07/20/2022 10:00:00 AM Scheduled Provider: Location:[facility] Appointment Type:URO Nurse Visit Appointment Date:08/17/2022 10:00:00 AM Scheduled Provider[facility] Type:[facility]O Nurse Visit Appointment Date:09/21/2022 09:45:00 AM Scheduled Provider:Lionel WHITNEY MD Location:[facility] Appointment Type:URO Office Visit Diagnostic Tests Pending * UroVysion FISH ([facility]) 07[facility]07/[facility] Future Appointments Appointment Date:08/17/2022 10:00:00 AM Scheduled Provider: [facility] Appointment Type:URO Nurse Visit Appointment Date:09/21/2022 09:45:00 AM Scheduled Provider:Lionel WHITNEY MD Location:[facility] Appointment Type:URO Office Visit [facility] Evaluation + Plan note Future Appointments Appointment Date:09/22/2022 02:00:00 PM Scheduled Provider: Location:[facility] Appointment Type:Urology CALL PAT FT Appointment Date:09/29/2022 11:15:00 AM Scheduled Provider[facility] Appointment Type:Urology FT [facility] evaluation + Plan note Future Appointments Appointment Date:09/22/2022 02:00:00 PM Scheduled Provider: Location:[facility] Appointment Type:Urology CALL PAT FT Appointment Date:09/29/2022 11:15:00 AM Scheduled Provider: Location:[facility] Appointment Type:Urology FT Diagnostic Tests Pending * Urine Cytology ([facility]) 09/21/22 [facility] evaluation + Plan note Future Appointments Appointment Date:10/04/2023 10:15:00 AM Scheduled Provider:Lionel WHITNEY MD Location:[facility] Appointment Type:URO Office Visit Diagnostic Tests Pending * UroVysion Fish and Urine Cyto ([facility]) 01[facility]05/23 [facility] Future Appointments Appointment Date:10/04/2023 10:15:00 AM Scheduled Provider:Lionel WHITNEY MD Location:[facility] Appointment Type:URO Office Visit General Surgery [facility] Evaluation + Plan note Future Appointments Appointment Date:10/04/2023 10:15:00 AM Scheduled Provider:Lionel WHITNEY MD Location:[facility] Appointment Type:URO Office Visit Diagnostic Tests Pending * UroVysion Fish and Urine Cyto ([facility]) 04[facility]27/23 [facility] Future Appointments Appointment Date:10/20/2023 12:00:00 PM Scheduled Provider: Location:[facility] Appointment Type:Urology CALL PAT FT Appointment Date:10/26/2023 10:00:00 AM Scheduled Provider: Location:[facility] Appointment Type:Urology FT Appointment Date:10/09/2024 10:15:00 AM Scheduled Provider:Lionel WHITNEY MD Location:[facility] Appointment Type:URO Office Visit Diagnostic Tests Pending * PSA Total 10/04/23 [facility] evaluation + Plan note Future Appointments Appointment Date:10/09/2024 10:15:00 AM Scheduled Provider:Lionel WHITNEY MD Location:[facility] Appointment Type:URO Office Visit Diagnostic Tests Pending * UroVysion Fish and Urine Cyto ([facility]) [facility] Work Phone: Evaluation note* Diagnosis Onset Date Resolution Status Spinal stenosis of cervical region with radiculopathy acute Spinal stenosis of lumbar region with radiculopathy acute [facility] Work Phone: Evaluation note* Diagnosis Onset Date Resolution Status Spinal stenosis of cervical region with radiculopathy acute Spinal stenosis of lumbar region with radiculopathy acute Colonization status acute COPD (chronic obstructive pulmonary disease) acute [facility] Work Phone: History general Narrative [...] KNEE SCOPE [place] [place] History FLU X2-3 DAYS Hospitalization History see surg. hx. [employer] Other Hospital course Narrative No data available for this section [facility] Hospital Discharge instructions No data available for this section [facility] progress note No data available for this section [facility] Chief Complaint and Reason for [...] Diagnosis 1 Cervical spondylosis (M47.812) [facility] Organization [facility] Referring Provider First Name Zoran Referring Provider Last Name Scott Referring Provider Specialty Neurologica l Surgery Referred Organization [facility] Referred Address [address] [place],[address] Referred Provider Specialty Physical The rapist Referral Priority Routine Reason evaluate and tr eat for neck and back pain Diagnosis 1 Cervical spondylosis (M47.812) Diagnosis 2 Low back pain, unspe cified (M54.50) Referral Organization [facility] Referring Provider First Name Zoran Referring Provider Last Name Scott Referring Provider Specialty Neurologica l Surgery Referred Organization [facility] Referred Provider Raoul Soriano Referred Address [address] [place], [place],[address] Referred Provider Specialty Pain Medicin e Referral [...] and content) DATE CREATED AUTHOR 11/27/2022 [facility] DATE CREATED AUTHOR AUTHOR'S ORGANIZ ATION 07/29/[address] [facility] DATE CREATED AUTHOR AUTHOR'S ORGANIZ ATION 09/03/2023 [facility] DATE CREATED AUTHOR AUTHOR'S ORGANIZ ATION 10/01/2023 [facility] DATE CREATED AUTHOR AUTHOR'S ORGANIZ ATION 11/27/2023 [facility] FOR RECORDS PERTAINING TO PATIENTS WHO ARE [...] BE BASED ON THE PRIMARY CLINICAL RECORDS. [employer] [facility]. provides no warranty or guarantee of the accuracy or completeness of information in this document.
[2024-03-27 10:18] VITALS: BP 164/85; PULSE 77; TEMP 36.6; O2SAT 96
[2024-03-27 10:57] VITALS: BP 169/79; BP 170/80; PULSE 60; PULSE 63; O2SAT 97
[2024-03-27] MEDS: 0.9 % SODIUM CHLORIDE 10 ML SYRINGE - SALINE FLUSH INJ (11:01)
--- NOTE | 2024-03-27 11:01 | W.PM.PROCNOT ---
Date of procedure: 03/27/24 Pre-op diagnosis: Pain due to lumbar stenosis with neurogenic claudication Post-op diagnosis: same as pre-op Procedure: Procedure: Bilateral L4-5 transforaminal epidural steroid injection Medications: Bupivacaine 0.25% 2cc, lidocaine 2% 1cc, kenalog 80mg The patient was seen and examined in the preoperative holding area.? Informed consent was obtained and placed on the chart.? Patient was brought to the medical procedure unit and placed in the prone position where a timeout was completed verifying the correct patient, procedure site, position, and planned special equipment using sterile aseptic technique.? Under direct fluoroscopic visualization a 25-gauge Quincke tipped spinal needle was advanced at level left L4-5 to the designated neural foramen where contrast dye was injected to show adequate spread.? There was no evidence of vascular or adverse uptake.? Epidural spread was appreciated.? The above-mentioned injectate was then placed in a 1.5 mL aliquot preceded by negative aspiration.? The needle was removed. The same procedure, at the same level, was completed on the opposite side. ? Patient was taken to the postprocedural recovery area and monitored for an appropriate length of time before found suitable for discharge in the accompaniment of a responsible adult. Anesthesia: Local Surgeon: Tamiko Landa Pathology: none sent Condition: stable Disposition: no change
[2024-03-27] MEDS: LIDOCAINE HCL 2% 400 MG/20 ML MDV INJ (11:02)
[2024-03-27] MEDS: IOHEXOL 240 MG/ML - 10 ML VIAL 24 MG INJ (11:02)
[2024-03-27] MEDS: TRIAMCINOLONE ACETONIDE 40 MG/ML VIAL 80 MG INJ (11:02)
[2024-03-27] MEDS: BUPIVACAINE HCL 0.25% PF 25 MG/10 ML VIAL INJ (11:02)
== END 2024-03-27 11:06 | disposition home or self-care (01) ==
LOC: SURGOUT 09:42
PROVIDERS: PCP Family Medicine; Visit Provider Anesthesiology
DX: M48.062 Spinal stenosis, lumbar region with neurogenic claudication (principal)
CPT/HCPCS: 64483; J0665; J3301; Q9966

== ENCOUNTER 2024-04-10 09:32 | Day surgery (SDC) | payer MEDICARE, SELFPAY ==
[2024-04-10 09:51] VITALS: BP 153/82; PULSE 58; TEMP 36.2; O2SAT 96
--- OUTSIDE RECORDS SUMMARY | 2024-04-10 09:55 | XMS_ITS | CCD ---
Author Organization [facility] CliniSynj Care Team Providers Care Sanforizing Machine Operator Name Role Phone MD Yolande Monterroso Primary Care Provider [phone] MD Lionel Whitney Attending Provider [phone] Yolande Monterroso Primary Care Physician Leidy Plummer Unavailable Unavailable MD Yolande Monterroso Primary Care Provider [phone] MD Lionel Whitney Attending Provider Zoran Chavez [...] Consulting Unavailable SCOTT, DR MEEHAN Consulting Unavailable HOY .DR LANIER Consulting Unavailable HOY ., DR LANIER Admitting Unavailable HOY ., DR LANIER Primary Care Unavailable HOY ., DR LANIER Attending Unavailable MARAVILLA ., DR FATEMEH Higginbotham Consulting Unavailable HOUSTON, DR SOCORRO Zapata Consulting Unavailable PARTHA HYATT [...] DR FLOWERS Consulting Unavailable WHITNEY ., DR LIONEL Delgado Unavailable WHITNEY ., DR FLOWERS Attending Unavailable [...] Unavailable MD Yolande Monterroso Primary Care Provider [phone] MD Zoran Chavez Attending Provider MD Yolande Monterroso Primary Care Provider [phone] LIDA Lowery Attending Provider Yolande Monterroso Primary Care Unavailable Esther Lowery Admitting Unavailable Sebastián, Esther Attending Unavailable Yolande Monterroso Primary Care Unavailable Lowery, Esther Admitting Unavailable Sebastián, Esther Attending Unavailable Yolande Monterroso Primary Care Unavailable Zoran Chavez Admitting Unavailable Zoran Chavez Attending Unavailable VASU GALEANO Attending Unavailable KELLY ORTIZ Attending Unavailable MD Yolande Monterroso Primary Care Provider [phone] LIDA Lowery Attending Provider NILL, Qamar Burgos Attending Unavailable WHITNEY, Lionel R Attending Unavailable NILL, Qamar Burgos Attending Unavailable WHITNEY, Lionel R Attending Unavailable WHITNEY, Lionel R Attending Unavailable WHITNEY, Lionel R Attending Unavailable WHITNEY, Lionel R Admitting Unavailable WHITNEY, Lionel R Referring Unavailable WHITNEY, Lionel R Attending Unavailable WHITNEY, Ilonel R Referring Unavailable WHITNEY, Lionel R Attending Unavailable WHITNEY, Lionel R Admitting Unavailable WHITNEY, Lionel R Admitting Unavailable WHITNEY, Lionel R Referring Unavailable WHITNEY, Lionel R Attending Unavailable Syeda NOBLE, Tamiko Kilgore Attending Unavailable Giramírez NOBLE, Tamiko Kilgore Attending Unavailable Allergies Allergy Classification Reported Allergen(s) Allergy Type Date of Onset Reaction(s) Facility (10 sources) Acetaminophen; 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: [acetaminophen] Drug Allergy 0 Itching, Itching agitated, Itching agitated, [facility] (20 sources) Codeine; 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: [Codeine] Drug Allergy 4 rash [facility] (11 sources) oxyCODONE; 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: [oxycodone] Drug Allergy 0 Itching, agitated, Itching, agitated, [facility] (16 sources) Acetaminophen / oxyCODONE; 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: [acetaminophen-oxyc odone] Drug Allergy aggitation [facility] [place] Comment on above: pt states this does not work for pt, pt is not allergic to vicodin (6 sources) cyclobenzaprine Drug Allergy 4 itching [facility] (6 sources) HYDROcodone Drug Allergy 4 anxiety [facility] (6 sources) tiZANidine Drug Allergy 4 hives [facility] (3 sources) Acetaminophen / HYDROcodone; 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: [Vicodin] Drug Allergy [facility] Repository (2 sources) Acetaminophen / oxyCODONE Drug Allergy [facility] Repository (1 source) atorvastatin Drug Allergy [facility] Repository (2 sources) tiZANidine Drug Allergy [facility] Repository (1 source) cyclobenzaprine Drug Allergy 4 [facility] Repository (1 source) HYDROcodone Drug Allergy 4 [facility] Repository (1 source) tiZANidine Drug Allergy 4 [facility] Repository (1 source) Acetaminophen / oxyCODONE; 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: [Percocet 5/325] Drug Allergy [facility] Repository Medications Current Medications Medication Drug Class(es) Dates Sig (Normalized) Sig (Original) acetaminophen 325 mg / HYDROcodone bitartrate 5 mg oral tablet (6 sources) Opioid Agonist Start: 08-12-2023 Hydrocodone-Acetam inophen Active 1 TAB PO August 12, 2023 1:00am Start: 02-03-2023 take 1 tablet by barry th every six hours as needed for pain acetaminophen-hydrocodone 325 mg-5 mg or al tablet 1 tab(s), Oral, q6hr as needed for pain, Refill(s) 0 Start Date: 02/03/23 Status: Ordered carvedilol 25 mg oral tablet (20 sources) [...] 07, 2019 1:00am April 19, 2020 8:04am Bdcsbypubpe-Sgalonyer-Bvsqlh er (10 sources) Anticholinergic, Corticosteroid, beta2-Adrenergic Agonist Start: 08-07-2019 Dnuxsymdohs-Ckzpcbces-Hnldxx er (Trelegy Ellipta) 100-62.5-25 mcg Blister With Device Active 1 INH INHALATION Daily August 07, 2019 3:01pm Start: 08-07-2019 Fluticasone-Um eclidin-Vilanter (Trelegy Ellipta) 100-62.5-25 mcg Blister With Device Active 1 INH INHALATION Daily August 07, 2019 12:00am Start: 08-07-2019 Fluticasone-Um eclidin-Vilanter (Trelegy Ellipta) 100-62.5-25 mcg Blister With Device Active 1 INH INHALATION Daily August 07, 2019 1:00am liothyronine (4 sources) l-Triiodothyronine Start: 10-11-2023 take 25 ug by mouth once daily Liothyronine Active 25 MCG PO Daily October 11, 2023 12:00am Start: 10-04-2023 liothyronine 2 5 mcg Tab Refills(s) 0 Start Date: 10/04/23 Status: Ordered methocarbamol 500 mg oral tablet (2 sources) Muscle Relaxant Start: 10-11-2023 take 500 mg by mouth once daily at bedtime Methocarbamol Active 500 MG PO Daily at bedtime October 11, 2023 12:00am Metoprolol (1 source) beta-Adrenergic Boogie Start: 03-28-2024 Metoprolol Tartrate Active MG PO March 28, 2024 12:00am Multivitamin preparation (10 sources) Start: 10-17-2021 take 1 tablet by [...] pantoprazole 40 mg delayed release oral tablet (10 sources) Proton Pump Inhibitor Start: 08-12-19 Pantoprazole [...] Sig (Original) allopurinol 300 mg oral tablet (12 sources) Xanthine Oxidase Inhibitor Start: 08-07-2019 End: 04-11-2020 take 300 mg by mouth once daily Allopurinol Discontinued 300 MG PO Daily August 07, 2019 1:00am April 11, 2020 1:50pm amLODIPine 10 mg oral tablet (20 sources) Dihydropyridine Calcium Channel Boogie Start: 08-12-2023 End: 03-28-2024 Amlodipine Discontinued 10 MG PO August 12, 2023 1:00am March 28, 2024 3:34pm Start: 02-10-2023 take 1 tablet by barry th once daily amLODIPine 5 mg Tab 5 mg = 1 tab(s), Oral, Daily, Refills(s) 0 Start Date: 02/10/23 Status: Ordered Start: 08-07-2019 End: 10-17-2021 take 10 mg by mouth at bedtime Amlodipine Discontinued 10 MG PO Bedtime August 07, 2019 1:00am October 17, 2021 12:30pm cephalexin 500 mg oral capsule (8 sources) Cephalosporin Antibacterial Start: 02-17-2022 End: 08-12-2023 take 500 mg by mouth every twelve hours Cephalexin Discontinued 500 MG PO Q12H 01 01February 17, 2022 12:00am August 12, 2023 12:08pm Start: 02-17-2022 take 500 mg by mouth every twelve hours Cephalexin Active 500 MG PO Q12H 01 01February 17, 2022 12:00am Start: 02-17-2022 take 500 mg by mouth every twelve hours Cephalexin Active 500 MG PO Q12H 14 7 February 17, 2022 12:00am ciprofloxacin 500 mg oral tablet (10 sources) Quinolone Antimicrobial Start: 01-20-2023 take 1 tablet by mouth once daily Cipro 500 mg Tab 500 mg = 1 tab(s), Oral, Daily, take one tab day before procedure and one tab after procedure, # 2 tab(s), Refills(s) 0, Pharmacy: [facility]/pharmacy #[id number], 170, cm, 01/20/23 [...] procedure, # 6 tab(s), Refills(s) 0, Pharmacy: [facility]/pharmacy #[id number], 170, cm, 09/22/22 12:23:00 EDT, Height/Length Dosing, 78, kg, 02/24/22 10:53:00 EDT, W... Start Date: 12/31/22 Status: Ordered Start: 07-02-2022 take 1 tablet by barry th once daily Cipro 500 mg Tab 500 mg = 1 tab(s), Oral, Daily, Take 1 tablet the day before the procedure and 1 tablet after the procedure, # 6 tab(s), Refills(s) 0, Pharmacy: [facility]/pharmacy #[id number], 170, cm, 02/24/22 [...] procedure, # 2 tab(s), Refills(s) 0, Pharmacy: [facility]/pharmacy #[id number], 170, cm, 11/05/21 11:37:00 EDT, Height/Length Dosing, 78, kg, 11/05/21... Start Date: 11/05/21 Status: Ordered cloNIDine hydrochloride 0.1 mg oral tablet (20 sources) Central alpha-2 Adrenergic Agonist Start: 02-17-2022 [...] 2022 12:00am diazePAM 5 mg oral tablet (10 sources) Benzodiazepine Start: 04-19-2020 End: 10-17-2021 take [...] procedure, # 2 cap(s), Refills(s) 0, Pharmacy: [facility]/pharmacy #[id number], 188, cm, 02/10/23 14:22:00 EDT, [...] 2022 2:19pm lidocaine 0.05 mg/mg medicated patch (4 sources) Antiarrhythmic, Amide Local Anesthetic Start: 08-12-2023 End: 10-11-2023 apply 1 dose topically once daily Lidocaine Discontinued 1 PATCH TOPICAL Daily August 12, 2023 1:00am October 11, 2023 3:26pm leave on most painful area for up to 12 hrs lisinopril 40 mg oral tablet (13 sources) Angiotensin Converting Enzyme Inhibitor Start: 06-22-2017 End: 10-17-2021 take 40 mg by mouth at bedtime Lisinopril Discontinued 40 MG PO Bedtime August 07, 2019 1:00am October 17, 2021 12:24pm losartan potassium 100 mg oral tablet (8 sources) Angiotensin 2 Receptor Boogie Start: 02-06-2022 [...] 3:26pm oxyCODONE hydrochloride 5 mg oral tablet (10 sources) Opioid Agonist Start: 04-19-2020 End: 10-17-2021 take 5 mg by mouth every four to six hours Oxycodone Discontinued 5 MG PO EVERY 4-6 HOURS 70 April 19, 2020 October 17, 2021 12:31pm [...] period., # 30 tab(s), Refills(s) 3, Pharmacy: [id number], 170, cm, 10/04/23 10:36:00 EDT, [...] period., # 30 tab(s), Refills(s) 3, Pharmacy: [facility], 170, cm, 02/24/22 10:53:00 EDT, Height/Length Dosing, 78, kg, 02/24/22 10:53:00 EDT, Weight Dosing Start Date: 07/05/22 Status: Ordered Start: 09-19-2021 sildenafil 100 mg Tab 100 mg = 1 tab(s), Oral, Daily, Take 1 pill 30 minutes prior to sexual relations, # 30 tab(s), Refills(s) 3, Pharmacy: [id number], 170, cm, 09/19/21 10:16:00 EDT, [...] surgery d one radical prostectomy at [facility] Cancer of prostate (20 sources) Personal history of malignant neoplasm of prostate; 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: [History of malignant neoplasm of prostate] Onset: 2 Episodic Cancer; other and unspecified primary (2 sources) H/O: malignant neoplasm 10-04-2023 Episodic Chronic obstructive pulmonary disease and bronchiectasis (7 sources) Chronic obstructive lung disease; 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: [Chronic [...] steroids Immunizations and screening for infectious disease (3 sources) Infectious disease carrier; 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: [Carrier of infectious disease, unspecified] 10-11-2023 Episodic Occlusion or stenosis of precerebral arteries (9 sources) Occlusion and stenosis of bilateral carotid arteries; 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: [Occlusion and stenosis of unspecified carotid artery] Onset: 3 Chronic Osteoarthritis (5 sources) Osteoarthritis; 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: [Osteoarthrosis, unspecified whether generalized or localized, unspecified site] Onset: 2 Chronic Other acquired deformities (18 sources) Spondylolisthesis; 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: [Spondylolisthesis, cervical region] 04-19-2020 Episodic Other acquired deformities (2 sources) Acquired spondylolisthesis; 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: [Spondylolisthesis, cervical region] Episodic Other aftercare (1 source) Other rat exterminator (current) drug therapy; 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: [OTH SENIOR CARE CURRENT DRUG THERAPY] Onset: 3 Episodic Other [...] Name Value Interpretation Reference Range Facil ity Patient Educationon 11-26-19 Patient Education Urology Varicocelectomy [...] including vitamins, herbs, eye drops, creams, and srvm-tum-tlllvot medicines. ? Any problems you or family [...] tells you to take them. ? Taking cspc-cvh-zumizeq medicines, vitamins, herbs, and supplements. General instructions [...] health c (more content not included)... Normal [facility] UroVysion Fish and Urine Cyt o ([facility])on 11-02-2023 UVFISH & UC Diagnosis Info Invalid Interpretation Code [facility] Comment on above: Result Comment: [...] on: 11/02/2023 10:22:27 Performed By: #### 1 [id number] ####[facility] [address] [place] [address] Consent for Procedure/Surger yon 10-26-2023 Consent for Procedure/Surgery [id number] 2#1.00TIFF Normal [facility] Consent for Treatmenton Consent for Treatment [id number] #1.00TIFF Normal [facility] IntraOperative Documentson 0 10-26-2023 IntraOperative Documents [id number] 2#1.00TIFF [facility] Main OR Intraoperative Recor don 10-26-2023 Main OR Intraoperative Record IntraOp Document Type FTURO Summary Primary Physician: Lionel WHITNEY MD Finalized Date/Time: 10/26/23 11:57:52 Pt. Name: EMILY MARY Verma/Sex: 1950 Male Med Rec #: [id number] Physician: Lionel WHITNEY MD Financial #: [id number] Pt. Type: O Room/Bed: / Admit/Disch: 10/26/23 09:34:20 - Institution: Case Times FTURO Entry 1 Patient Times In Room 10/26/23 11:49:00 Out Room 10/26/23 11:57:00 Procedure Times Start 10/26/23 11:51:00 Stop 10/26/23 11:55:00 Anesthesia Times Last Modified By: Fabiana Galaviz 10/26/23 11:57:45 Case Attendance FTURO Entry 1 Entry 2 Entry 3 Case Attendee Lionel WHITNEY MD, Kels[facility] E [facility] Role Performed Surgeon - Primary Hide Handler - Primary Scrub - Primary Time [...] Position Verified Availability Equipment, Medication Time Out DEVONET NOBLE, Lionel Burgos, Verified (If Participants Fabiana Galaviz, Applicable) Nanci Baig CST Time Out Complete 10/26/23 11:50:00 Allergies Reviewed? Yes Allergies Reviewed Self/Patient With Body Position Supine Prep Area PENIS Prep Agents Betadine Solution Skin. Condition Intact, Roebling, Warm, and Description REDDED DOTS ON Dry, [...] 10/26/23 11:57 Fabiana Galaviz 10/26/23 11:57 Normal [facility] Main OR Preoperative Recordo n 10-26-2023 Main OR Preoperative Record Holding Area Document Type FTURO Summary Primary Physician: Lionel WHITNEY MD Finalized Date/Time: 10/26/23 11:16:48 Pt. Name: MARY DIAZ/Sex: 1950 Male Med Rec #: [id number] Physician: Lionel WHINTEY MD Financial #: [id number] Pt. Type: O Room/Bed: / Admit/Disch: 10/26/23 [...] 11:11 Nanci Cortes RN 10/26/23 11:16 Normal [facility] Operative Reporton Operative Report Patient: [...] with antibiotic coverage, Follow up arranged. Normal [facility] Comment on above: Result Comment: Elec tronically Signed By: Lionel WHITNEY MD\.br\Date and Time Signed: 10/26/23 11:58 EDT Outpatient Surgery Discharge Instructionon 10-26-2023 Outpatient Surgery Discharge Instruction [id number] 2#1.00TIFF Normal [facility] UroVysion Fish and Urine Cyt o ([facility])on 10-26-2023 [facility] Method of Extraction Voided Normal [facility] Comment on above: Performed By: #### 1 [id number] ####[facility] [address] [facility] [place] [address] [facility] Number of Jars 1 Invalid Interpretation Code [facility] Comment on above: Performed By: #### 1 [id number] ####[facility] [address] [place] [address] [facility] Specimen Urine Normal [facility] Comment on above: Performed By: #### 1 [id number] ####[facility] [address] [facility] [place] [address] [facility] Type of Service Technical Only Normal [facility] Comment on above: Performed By: #### 1 [id number] ####[facility] [address] [place] [address] Ambulatory Visit Summaryon 0 10-04-2023 Ambulatory Visit [...] Wednesday. 2023 12:00 PM EDT With: Where: [facility] Wednesday. 2023 10:00 AM EDT With: Where: [facility] Wednesday 10:15 AM EDT With: Lionel WHITNEY MD Where: [facility] Patient Educationon 10-04-19 Patient Education Oncology Cancer [...] if anything looks unusual. Men with a xxqsol-juwl-oqbibc risk for skin cancer may want to see a electronic masking system operator (dump attendant) for an annual body check. What are the benefits of screening? Cancer screening is done to look for cancer in the very early stages, before it spreads and becomes harder to treat and before you would start to notice symptoms. Finding cancer early improves the chances of successful treatment. It ma (more content not included)... Normal [facility] Urology Office/Clinic Noteon 10-04-2023 Urology Office/Clinic [...] [facility] [address], [place] [phone] Additional Instructions: 1 yr w/ PSA Patient [...] inhalation po (more content not included)... Normal [facility] Comment on above: Result Comment: Elec tronically Signed By: Lionel WHITNEY MD\.br\Date and Time Signed: 10/04/23 11:16 EDT\.br\Electronically Co-Signed [...] Spoke to austyn hendricks for 10/26/23 at [facility]. LG Patient will be due in Apr 2024 for 6 month cysto/fish/cytol (bt ck) Normal [facility] Lab Reportson 09-22-2023 Lab Reports [id number] #1.00TIFF Normal [facility] MR cervical spine wo/w conon 08-29-2023 MR cervical spine wo/w con [facility] [place] [address] MRI Report Signed Patient: Mary Diaz MR#: [id number] : 1950 Acct:[id number] Age/Sex: 73 / M ADM Date: 08/28/23 Loc: MR Room: Type: [facility] Attending Dr: Esther HILTON Copies to: [...] Lupe Campos M.D.08/29/2023 1:06 PM Dictation Location: [place] [address] Transcribed By: [facility] 08/29/23 1306 Dictated By: Lupe Campos MD 08/29/23 1254 Signed By: 08/29/23 1306 [facility] Creatinine (Bld) [Mass/Vol]O rdered By: Esther Lowery on 08-28-2023 Creatinine [Mass/Vol] 1.2 mg/dL 0.6-1.3 [facility] Comment on above: ER/ESD physician is notified/shown all ISTAT results.Critical values may be confirmed by laboratory testing ifdeemed necessary by ER attending doctor. ISTAT XRay CREon 08-28-2023 Creatinine [Mass/Vol] 1.2 mg/dL Normal 0.6-1.3 [facility] Comment on above: Result Comment: ER/E SD physician is notified/shown all ISTAT results. Critical values may be confirmed by laboratory testing if deemed necessary by ER attending doctor. Performed By: #### I SCRE #### [address] ISTAT GFR > 60.0 [facility] Comment on above: Result Comment: PERF ORMED BY: [place] [address] PATHOLOGIST LOCAL TELEPHONE OPERATOR JENARO FLOREZ M.D. Performed By: #### I SCRE #### [address] No Panel InformationOrdered By: Esther Lowery on 08-28-2023 Bedside Estimated GFR (eGFR) > 60.0 [facility] XR cervical spine LAT/FLX/EX Ton 08-12-2023 XR cervical spine LAT/FLX/EXT [facility] [place] [address] XRay Report Signed Patient: Mary Diaz MR#: [id number] : 1950 Acct:[id number] Age/Sex: 73 / M ADM Date: 08/12/23 Loc: XD Room: Type: [facility] Attending Dr: Etsher Lowery CLEAN IN PLACES OPERATOR-C Copies to: LIDA Flynn Ordering Provider: LIDA [...] Kenny Leahy M.D.08/12/2023 3:29 PM Dictation Location: [place] [address] Transcribed By: [facility] 08/12/23 1529 Dictated By: Kenny Leahy DO 08/12/23 1528 Signed By: 08/12/23 1529 [facility] XR lumbar spine 6V w bending on 08-12-2023 XR lumbar spine 6V w bending [facility] Main [place] [address] [place] [address] XRay Report Signed Patient: Mary Diaz MR#: [id number] : 1950 Acct:[id number] Age/Sex: 73 / M ADM Date: 08/12/23 Loc: XD Room: Type: [facility] Attending Dr: Esther Lowery NP-C Copies to: [...] Kenny Leahy M.D.08/12/2023 3:28 PM Dictation Location: [place] [address] Transcribed By: PWS 08/12/23 1528 Dictated By: Kenny Leahy DO 08/12/23 1526 Signed By: 08/12/23 1528 Normal [facility] UroVysion Fish and Urine Cyt o ([facility])on 05-26-2023 UVFISH & UC Revision Information Invalid Interpretation Code [facility] Comment on above: Result Comment: Jimbo ection Reason -[ To uNr, 05/26/23 - 14:52 ] Corrected report issued to include PMS/PWS. The diagnosis remains unchanged. Correction Notes - Performed By: #### 1 [id number] ####[facility] [address] [place] [address] Consent for Procedure/Surger yon 04-27-2023 Consent for Procedure/Surgery [id number] #1.00TIFF [facility] Consent for Treatmenton 0 Consent for Treatment [id number] #1.00TIFF Normal [facility] IntraOperative Documentson 1 06-27-2022 IntraOperative Documents [id number] #1.00TIFF [facility] Main OR Intraoperative Recor don 04-27-2023 Main OR Intraoperative Record IntraOp Document Type FTURO Summary Primary Physician: Lionel WHITNEY MD Finalized Date/Time: 04/27/23 11:02:57 Pt. Name: MARY DIAZ D.O.B./Sex: 1950 Male Med Rec #: [id number] Physician: Lionel WHITNEY MD Financial #: [id number] Pt. Type: O Room/Bed: / Admit/Disch: 04/27/23 [...] Nanci Luna Role Performed Surgeon - Primary Hide Handler - Primary Scrub - Primary Time [...] Met? Yes Last Modified By: Edgard ZELAYA, EDITHORCheryl 04/27/23 10:55:56 Post-Care Text: The patient is [...] Edgard ZELAYA, EDITHOR, Applicable) Safia Luna CST, Nanci Baxter Time [...] [facility] Main OR Preoperative Recordo n 04-27-2023 Main OR Preoperative Record Holding Area Document Type FTURO Summary Primary Physician: Lionel WHITNEY MD Finalized Date/Time: 04/27/23 10:26:02 Pt. Name: MARY DIAZ /Sex: 1950 Male Med Rec #: [id number] Physician: Lionel WHITNEY MD Financial #: [id number] Pt. Type: O Room/Bed: / Admit/Disch: 04/27/23 [...] Complaints of Pain: No Skin Integrity Intact, Roebling, Warm, & Dry Vitals - EU Blood Pressure 167/96 Pulse 76 bpm Respirations 20 br/min SPO2 97 % Last Modified By: Avani Costello LPN 04/27/23 10:25:57 General Comments: Temp 36.7 Finalized By: Avani Costello LPN Document Signatures Signed By: Avani Costello LPN 04/27/23 10:26 Normal [facility] Operative Reporton 3 Operative Report Patient: [...] Discharge Instructionon 04-27-2023 Outpatient Surgery Discharge Instruction [id number] #1.00TIFF [facility] Reminderson 04-27-2023 Reminders - [...] 04-27-2023 [facility] Method of Extraction Voided Normal [facility] Comment on above: Performed By: #### 1 [id number] ####[facility] [address] [place] [address] [facility] Number of Jars 1 Invalid Interpretation Code [facility] Comment on above: Performed By: #### 1 [id number] ####[facility] [address] [place] [address] [facility] Specimen Urine Normal [facility] Comment on above: Performed By: #### 1 [id number] ####[facility] [address] [place] [address] [facility] Type of Service Technical Only Normal [facility] Comment on above: Performed By: #### 1 [id number] ####[facility] [address] [place] [address] Outside Colonoscopyon 2022 Outside Colonoscopy [id number] #1.00CD:127 Normal [facility] Reminderson 03-16-2023 Reminders - From: Stephanie Fletcher LPN To: N - Clinical; Sent: 03/16/2023 07:57:36 EDT Show up: 02/08/2028 07:00:00 EDT Subject: colonoscopy recall Due Date/Time: 03/10/2028 07:00:00 EDT Reminder/Recall Patient due for surveillance colonoscopy 03/10/2028 due to history of colonic polyps. Normal [facility] Consent for Procedure/Surger yon 02-11-2023 Consent for Procedure/Surgery [id number]# 1.00CD:127 Normal [facility] Ambulatory Visit Summaryon 0 02-10-2023 Ambulatory [...] NOBLE, Lionel Burgos Where: [facility] Normal [facility] Physician Referralon 023 Physician Referral [id number] #1.00CD:127 Normal [facility] UroVysion Fish and Urine Cyt o ([facility])on 02-03-2023 UVFISH & UC Revision Information Invalid Interpretation Code [facility] Comment on above: Result Comment: Jimbo ection Reason -[ To Nur, 02/03/23 - 12:32 ] Corrected report issued to update PMS/PWS. The diagnosis remains unchanged. Correction Notes - Performed By: #### 1 [id number] ####[facility] [address] [place] [address] Operative Reporton Operative Report [id number] #1.00CD:127 Normal [facility] Ambulatory Visit Summaryon 0 01-20-2023 [...] Reilly Normal [address] [place] [address]- \.br\ You Need to Schedule the Following Appointments\.br \ Follow Up with DEVONTE NOBLE, Lionel Burgos, URL When: \.br\ Comments:\.br\ sched cysto\.br\ Where:\.br\ [facility] [address]\.br\ [place] [address]-\.br\ [phone]\.br\ Medications\.br\ What How Much When Instructions\.br \ New ciprofloxacin (Cipro 500 mg Tab) 1 Tablets By Mouth Every day take one tab day before procedure and one tab after procedure Pickup at [facility]/pharmacy #[id number]\.br\ Unchanged sildenafil (sildenafil 100 mg Tab) 1 [...] if questions or concerns \.br\ Pharmacy Information\.br\ [facility]/pharmacy #[id number]: [address], [place] [id number] [phone]\.br\ Allergies\.br\ Percocet 5/325\.br\ codeine (hives/rashes)\. br\ Problems\.br\ [...] these instructions at home:\.br\ ? \.br\ Take lozx-svy-yssuudg and prescription medicines only as told by [...] Where to find more information\.br\ ? \.br\ [place] [employer] Society (ACS): cancer.org\.br\ ? \.br\ National Cancer [place] (NCI): cancer.gov\.br\ Contact a health care provider [...] based on the stage of your cancer.\.br\ [facility] Ambulatory Visit Summary MARY DIAZ :1950 Visit [...] Reilly Normal [address] [place] [address] [place] [address]- \.br\ You Need to Schedule the Following Appointments\.br \ Follow Up with Lionel WHITNEY MD, URL When: \.br\ Comments:\.br\ sched cysto\.br\ Where:\.br\ [facility] [address]br\ [place] [address].br\ [phone]\.br\ Medications\.br\ What How Much When Instructions\.br \ [...] these instructions at home:\.br\ ? \.br\ Take ellu-gmn-lomyebv and prescription medicines only as told by [...] Where to find more information\.br\ ? \.br\ [place] [employer] Society (ACS): cancer.org\.br\ ? \.br\ National Cancer [place] (NCI): cancer.gov\.br\ Contact a health care provider [...] to you by your health care pro [facility] Pathology Noteon 01-20-2023 Pathology Note [id number] #1.00CD:127 Normal [facility] Patient Educationon 01-21-20 23 Patient Education [...] Follow these instructions at home: ? Take ohvd-enp-fanqhrp and prescription medicines only as told by [...] important. Where to find more information ? [place] [employer] Society (ACS): cancer.org ? National Cancer [place] (NCI): cancer.gov Contact a health care provider [...] wi (more content not included)... Normal [facility] Urology Office/Clinic Noteon 01-20-2023 Urology Office/Clinic Note [...] [facility] [address], [place] [phone] Additional Instructions: sched cysto Patient Education Bladder Cancer I, Lilo Zhou, personally scribed for Dr. Whitney on 01/20/2023 11:37:43. . Documentation recorded by the scribe, Lilo Zhuo, accurately reflects the services(s) I performed and [...] DEVONTE NOBLE, Lionel Burgos\.br\Date and Time Signed: 01/20/23 11:40 EDT\.br\Electronically Co-Signed By: Lilo Zhou\.br\Date and Time Co-Signed: 01/20/23 11:37 EDT Lab Reportson 01-11-2023 Lab Reports [id number] #1.00CD:127 [facility] Consent for Procedure/Surger yon 01-05-2023 Consent for Procedure/Surgery [id number]#1.00CD:127 [facility] Consent for Treatmenton 12-19 Consent for Treatment [id number] #1.00CD:127 [facility] IntraOperative Documentson 0 01-05-2023 IntraOperative Documents [id number]#1.00CD:127 [facility] Main OR Intraoperative Recor don 01-05-2023 Main OR Intraoperative Record IntraOp Document Type FTURO Summary Primary Physician: Lionel WHITNEY MD Finalized Date/Time: 01/05/23 10:57:53 Pt. Name: EMILY MARY Verma/Sex: 1950 Male Med Rec #: [id number] Physician: Lionel WHITNEY MD Financial #: [id number] Pt. Type: O Room/Bed: / Admit/Disch: 01/05/23 [...] Zora Luna Role Performed Surgeon - Primary Hide Handler - Primary Scrub - Primary Time [...] PAULINA Rene RN, Ruthann 01/05/23 10:57 Normal [facility] Main OR Preoperative Recordo n 01-05-2023 Main OR Preoperative Record Holding Area Document Type FTURO Summary Primary Physician: Lionel WHITNEY MD Finalized Date/Time: 01/05/23 10:43:08 Pt. Name: EMILYMARY/Sex: 1950 Male Med Rec #: [id number] Physician: Lionel WHITNEY MD Financial #: [id number] Pt. Type: O Room/Bed: / Admit/Disch: 01/05/23 [...] Rene RN, Ruthann Document Signatures Signed By: Sophia ZELAYA, Nanci Paredes 01/05/23 10:16 Sophia ZELAYA, Nanci Paredes 01/05/23 10:13 Nanci Cortes RN 01/05/23 10:16 Nanci Cortes RN 01/05/23 10:15 Nanci Cortes RN 01/05/23 10:13 PAULINA Rene RN, Ruthann 01/05/23 10:43 Normal [facility] Operative Reporton Operative Report Patient: [...] tumor has developed in these areas.. Normal [facility] Comment on above: Result Comment: Elec tronically Signed By: Lionel WHITNEY MD\.br\Date and Time Signed: 01/05/23 10:59 EDT UroVysion Fish and Urine Cyt o ([facility])on 01-05-2023 [facility] Method of Extraction Bladder Wash Normal [facility] Comment on above: Performed By: #### 1 [id number] ####[facility] [address] [place] [address] [facility] Number of Jars 1 Invalid Interpretation Code [facility] Comment on above: Performed By: #### 1 [id number] ####[facility] [address] [place] [address] [facility] Specimen Urine Normal [facility] Comment on above: Performed By: #### 1 [id number] ####[facility] [address] [place] [address] [facility] Type of Service Technical Only Normal [facility] Comment on above: Performed By: #### 1 [id number] ####[facility] [address] [place] [address] MR lumbar spine wo conon MR lumbar spine wo con [facility] [place] [address] MRI Report Signed Patient: Mary Diaz MR#: [id number] : 1950 Acct:[id number] Age/Sex: 72 / M ADM Date: 01/01/23 Loc: Room: Type: [facility] Attending Dr: Zoran Chavez MD Copies to: [...] Jamaica Alas M.D.01/01/2023 2:48 PM Dictation Location: [place] [address] Transcribed By: [facility] 01/01/23 1448 Dictated By: Jamaica Alas II, MD 01/01/23 1441 Signed By: 01/01/23 1441 [facility] Retail - Clinical Noteon Retail - Clinical Note [id number] #1.00CD:127 Normal [facility] XR CSPINE MIN 4 VIEWSon 05-0 [...] CORTES Date: 2022-10-23 11:[address] [facility] XR LSPINE W_OBLS AND FLEX_EX [...] GONZALEZ Date: 2022-10-23 13:[address] [facility] BNPon 10-06-2022 Natriuretic peptide B (Bld) [Mass/Vol] 844.0 pg/mL Normal <=900.[address] [facility] Comment on above: Performed By: #### [facility] #### [facility] [address] [place] [address] Dr. Johnna Dixon CBC AUTO DIFFon 10-06-2022 BASO # 0.0 103/ul Normal 0.0-0.[address] [facility] Comment on above: Performed By: #### C BC #### [facility] [address] [place] [address] Dr. Johnna Dixon Basophils/100 WBC (Bld) 0.0 % Critically low 0.2-2.[address] [facility] Comment on above: Performed By: #### C BC #### [facility] [address] [place] [address] Dr. Johnna Dixon EO # 0.0 103/ul Normal 0.0-0.[address] [facility] Comment on above: Performed By: #### C BC #### [facility] [address] [place] [address] Dr. Johnna Dixon Eosinophils/100 WBC (Bld) 0.0 % Critically low 0.9-7.[address] [facility] Comment on above: Performed By: #### C BC #### [facility] [address] [place] [address] Dr. Johnna Dixon Erythrocyte distribution width (RBC) [Ratio] 13.9 % Normal 11.0-15.[address] [facility] Comment on above: Performed By: #### C BC #### [facility] [address] [place] [address] Dr. Johnna Dixon Hematocrit (Bld) [Volume fraction] 33.6 % Critically low 42.0-54.[address] [facility] Comment on above: Performed By: #### C BC #### [facility] [address] [place] [address] Dr. Johnna Dixon Hemoglobin (Bld) [Mass/Vol] 11.1 g/dL Critically low 14.0-18.[address] [facility] Comment on above: Performed By: #### C BC #### [facility] [address] [place] [address] Dr. Johnna Dixon IG # 0.03 10e3/ul Normal 0.00-0.[address] [facility] Comment on above: Performed By: #### C BC #### [facility] [address] [place] [address] Dr. Johnna Dixon IG % 0.5 % Normal 0.0-0.[address] [facility] Comment on above: Performed By: #### C BC #### [facility] [address] [place] [address] Dr. Johnna Dixon LYMPH # 0.7 103/ul Critically low 1.2-3.[address] [facility] Comment on above: Performed By: #### C BC #### [facility] [address] [place] [address] Dr. Johnna Dixon Lymphocytes/100 WBC (Bld) 11.5 % Critically low 20.5-60.[address] [facility] Comment on above: Performed By: #### C BC #### [facility] [address] [place] [address] Dr. Johnna Dixon MANUAL DIFF REQ NO Normal [facility] Comment on above: Performed By: #### C BC #### [facility] [address] [place] [address] Dr. Johnna Dixon MCH (RBC) [Entitic mass] 31.0 pg Normal 25.9-34.[address] [facility] Comment on above: Performed By: #### C BC #### [facility] [address] [place] [address] Dr. Johnna Dixon MCHC (RBC) [Mass/Vol] 33.0 g/dL Normal 29.9-35.[address] [facility] Comment on above: Performed By: #### C BC #### [facility] [address] [place] [address] Dr. Johnna Dixon MCV (RBC) [Entitic vol] 93.9 fL Normal 80.0-94.[address] [facility] Comment on above: Performed By: #### C BC #### [facility] [address] [place] [address] Dr. Johnna Dixon MONO # 0.3 103/ul Normal 0.3-0.[address] [facility] Comment on above: Performed By: #### C BC #### [facility] [address] [place] [address] Dr. Johnna Dixon Monocytes/100 WBC (Bld) 4.5 % Normal 1.7-12.[address] [facility] Comment on above: Performed By: #### C BC #### [facility] [address] [place] [address] [address] Johnna Dixon NEUT # 5.0 103/ul Normal 1.4-6.[address] [facility] Comment on above: Performed By: #### C BC #### [facility] [address] [place] [address] [address] Johnna Dixon Neutrophils/100 WBC (Bld) 83.5 % Critically high 43.0-75.[address] [facility] Comment on above: Performed By: #### C BC #### [facility] [address] [place] [address] Dr. Johnna Dixon Platelet mean volume (Bld) [Entitic vol] 10.3 fL Normal 9.5-13.[address] [facility] Comment on above: Performed By: #### C BC #### [facility] [address] [place] [address] Dr. Johnna Dixon PLT 184 103/ul Normal 150-[address] [facility] Comment on above: Performed By: #### C BC #### [facility] [address] [place] [address] Dr. Johnna Dixon RBC 3.58 106/ul Critically low 4.70-6.[address] [facility] Comment on above: Performed By: #### C BC #### [facility] [address] [place] [address] Dr. Johnna Dixon WBC 6.0 103/ul Normal 4.0-11.[address] [facility] Comment on above: Performed By: #### C BC #### [facility] [address] [place] [address] Dr. Johnna Dixon PROF 14(COMP METB)on 023 Albumin [Mass/Vol] 2.7 g/dL Critically low 3.4-5.0 [facility] Comment on above: Performed By: #### C VDTBH #### [facility] [address] [place] [address] Dr. Johnna Dixon Albumin/Globulin [Mass ratio] 0.9 {ratio} Normal [facility] Comment on above: Performed By: #### C VDTBH #### [facility] [address] [address] [address] Johnna Dixon ALP [Catalytic activity/Vol] 32 U/L Critically low 46-[address] [facility] Comment on above: Performed By: #### C VDTBH #### [facility] [address] [place] [address] [address] Johnna Dixon ALT [Catalytic activity/Vol] 19 U/L Normal 16-[address] [facility] Comment on above: Performed By: #### C VDTBH #### [facility] [address] [place] [address] [address] Johnna Dixon Anion gap [Moles/Vol] 14.0 mmol/L Normal [facility] Comment on above: Performed By: #### C VDTBH #### [facility] [address] [place] [address] Dr. Johnna Dixon AST [Catalytic activity/Vol] 12 U/L Critically low 15-[address] [facility] Comment on above: Performed By: #### C VDTBH #### [facility] [address] [place] [address] Dr. Johnna Dixon Bilirubin [Mass/Vol] 0.6 mg/dL Normal 0.2-1.[address] [facility] Comment on above: Performed By: #### C VDTBH #### [facility] [address] [address] [address] Johnna Dixon Calcium [Mass/Vol] 8.3 mg/dL Critically low 8.5-10.1 [facility] Comment on above: Performed By: #### C VDTBH #### [facility] [address] [address] [address] Johnna Dixon Chloride [Moles/Vol] 107 mmol/L Normal 98-[address] [facility] Comment on above: Performed By: #### C VDTBH #### [facility] [address] [address] [address] Johnna Dixon CO2 [Moles/Vol] 24.9 mmol/L Normal 21.0-32.[address] [facility] Comment on above: Performed By: #### C VDTB #### [facility] [address] [place] [address] [address] Johnna Dixon Creatinine [Mass/Vol] 1.20 mg/dL Normal 0.70-1.[address] [facility] Comment on above: Performed By: #### C VDTBH #### [facility] [address] [place] [address] [address] Johnna Dixon EGFR-AF IRISH >60 Normal >=[address] [facility] Comment on above: Performed By: #### C VDTBH #### [facility] [address] [place] [address] [address] Johnna Dixon EGFR-NON AF IRISH 60 mL/min/1.73m2 Normal >=[address] [facility] Comment on above: Performed By: #### C VDTBH #### [facility] [address] [place] [address] [address] Johnna Dixon Globulin (S) [Mass/Vol] 2.9 g/dL Normal [facility] Comment on above: Performed By: #### C VDTBH #### [facility] [address] [address] [address] Johnna Dixon Glucose [Mass/Vol] 153 mg/dL Critically high 74-106 [facility] Comment on above: Performed By: #### C VDTBH #### [facility] [address] [place] [address] [address] Johnna Dixon Potassium [Moles/Vol] 3.9 mmol/L Normal 3.5-5.[address] [facility] Comment on above: Performed By: #### C VDTBH #### [facility] [address] [address] [address] Johnna Dixon Protein [Mass/Vol] 5.6 g/dL Critically low 6.4-8.2 [facility] Comment on above: Performed By: #### C VDTBH #### [facility] [address] [address] [address] Johnna Dixon Sodium [Moles/Vol] 142 mmol/L Normal 136-[address] [facility] Comment on above: Performed By: #### C VDTBH #### [facility] [address] [place] [address] Dr. Johnna Dixon Urea nitrogen [Mass/Vol] 14.0 mg/dL Normal 7.0-18.[address] [facility] Comment on above: Performed By: #### C VDTBH #### [facility] [address] [place] [address] Dr. Johnna Dixon Urea nitrogen/Creatinine [Mass ratio] 11.7 mg/mg Normal [facility] Comment on above: Performed By: #### C VDTBH #### [facility] [address] [place] [address] Dr. Johnna Dixon CBC AUTO DIFFon 10-05-2022 BASO # 0.0 103/ul Normal 0.0-0.[address] [facility] Comment on above: Performed By: #### S PUTGS #### [facility] [address] [place] [address] Dr. Johnna Dixon Basophils/100 WBC (Bld) 0.2 % Normal 0.2-2.[address] [facility] Comment on above: Performed By: #### S PUTGS #### [facility] [address] [place] [address] Dr. Johnna Dixon EO # 0.0 103/ul Normal 0.0-0.[address] [facility] Comment on above: Performed By: #### S PUTGS #### [facility] [address] [place] [address] Dr. Johnna Dixon Eosinophils/100 WBC (Bld) 0.2 % Critically low 0.9-7.[address] [facility] Comment on above: Performed By: #### S PUTGS #### [facility] [address] [place] [address] Dr. Johnna Dixon Erythrocyte distribution width (RBC) [Ratio] 14.1 % Normal 11.0-15.[address] [facility] Comment on above: Performed By: #### S PUTGS #### [facility] [address] [place] [address] Dr. Johnna Dixon Hematocrit (Bld) [Volume fraction] 39.9 % Critically low 42.0-54.[address] [facility] Comment on above: Performed By: #### S PUTGS #### [facility] [address] [address] [address] Johnna Dixon Hemoglobin (Bld) [Mass/Vol] 12.8 g/dL Critically low 14.0-18.[address] [facility] Comment on above: Performed By: #### S PUTGS #### [facility] [address] [address] [address] Johnna Dixon IG # 0.01 10e3/ul Normal 0.00-0.[address] [facility] Comment on above: Performed By: #### S PUTGS #### [facility] [address] [place] [address] [address] Johnna Dixon IG % 0.2 % Normal 0.0-0.[address] [facility] Comment on above: Performed By: #### S PUTGS #### [facility] [address] [place] [address] Dr. Johnna Dixon LYMPH # 0.7 103/ul Critically low 1.2-3.[address] [facility] Comment on above: Performed By: #### S PUTGS #### [facility] [address] [place] [address] Dr. Johnna Dixon Lymphocytes/100 WBC (Bld) 14.3 % Critically low 20.5-60.[address] [facility] Comment on above: Performed By: #### S PUTGS #### [facility] [address] [place] [address] Dr. Johnna Dixon MANUAL DIFF REQ NO Normal [facility] Comment on above: Performed By: #### S PUTGS #### [facility] [address] [address] [address] Johnna Dixon MCH (RBC) [Entitic mass] 30.7 pg Normal 25.9-34.[address] [facility] Comment on above: Performed By: #### S PUTGS #### [facility] [address] [address] [address] Johnna Dixon MCHC (RBC) [Mass/Vol] 32.1 g/dL Normal 29.9-35.[address] [facility] Comment on above: Performed By: #### S PUTGS #### [facility] [address] [address] [address] Johnna Dixon MCV (RBC) [Entitic vol] 95.7 fL Critically high 80.0-94.[address] [facility] Comment on above: Performed By: #### S PUTGS #### [facility] [address] [address] [address] Johnna Dixon MONO # 0.6 103/ul Normal 0.3-0.[address] [facility] Comment on above: Performed By: #### S PUTGS #### [facility] [address] [address] [address] Johnna Dixon Monocytes/100 WBC (Bld) 12.5 % Critically high 1.7-12.[address] [facility] Comment on above: Performed By: #### S PUTGS #### [facility] [address] [place] [address] Dr. Johnna Dixon NEUT # 3.6 103/ul Normal 1.4-6.[address] [facility] Comment on above: Performed By: #### S PUTGS #### [facility] [address] [place] [address] Dr. Johnna Dixon Neutrophils/100 WBC (Bld) 72.6 % Normal 43.0-75.[address] [facility] Comment on above: Performed By: #### S PUTGS #### [facility] [address] [place] [address] Dr. Johnna Dixon Platelet mean volume (Bld) [Entitic vol] 9.5 fL Normal 9.5-13.[address] [facility] Comment on above: Performed By: #### S PUTGS #### [facility] [address] [place] [address] Dr. Johnna Dixon PLT 213 103/ul Normal 150-450 [facility] Comment on above: Performed By: #### S PUTGS #### [facility] [address] [place] [address] Dr. Johnna Dixon RBC 4.17 106/ul Critically low 4.70-6.10 [facility] Comment on above: Performed By: #### S PUTGS #### [facility] [address] [place] [address] Dr. Johnna Dixon WBC 5.0 103/ul Normal 4.0-11.[address] [facility] Comment on above: Performed By: #### S PUTGS #### [facility] [address] [place] [address] Dr. Johnna Dixon CULTURE BLOODon 10-05-2022 Microscopic examination of blood, culture Culture Observations: NO GROWTH AT 5 DAYS. Normal [facility] Comment on above: Performed By: #### B LDCX2 #### [facility] [address] [place] [address] Dr. Johnna Dixon Microscopic examination of blood, culture Culture Observations: NO GROWTH AT 5 DAYS. Normal [facility] Comment on above: Performed By: #### S PUTGS #### [facility] [address] [place] [address] Dr. Johnna Dixon CULTURE SPUTUMon 10-05-2022 CULTURE SPUTUM Culture Observations: NORMAL RESPIRATORY JONATAN. Normal [facility] Comment on above: Performed By: #### S PUTGS #### [facility] [address] [place] [address] Dr. Johnna Dixon [facility] SARS-CoV-2 (COVID-19) RNA REX+probe Ql (Unsp spec) Not detected Normal NOT DETECTED [facility] Comment on above: Result Comment: This test is not yet approved or cleared by the [place] FDA. When there are no FDA-approved or cleared tests available, and other criteria are met, FDA can make tests available under an emergency access mechanism called an Emergency Use Authorization (EUA). The EUA for this test is supported by the [place] of Health and Human Service's (HHS's) declaration [...] SARS-CoV-2. Performed By: #### C VDTB #### [facility] [address] [place] [address] Dr. Johnna Dixon LACTATE/LACTIC ACIDon 2022 Lactate [Moles/Vol] 1.2 mmol/L Normal 0.4-2.[address] [facility] Comment on above: Performed By: #### L ACT #### [facility] [address] [place] [address] Dr. Johnna Dixon Lactate [Moles/Vol] 2.4 mmol/L Critically high 0.4-2.[address] [facility] Comment on above: Performed By: #### L ACT #### [facility] Laboratory [address] [place] [address] Dr. Johnna Dixon PROF CHEM 8 (BAS METB)on Anion gap [Moles/Vol] 12.6 mmol/L Normal Th [facility] Comment on above: Performed By: #### B MP #### [facility] [address] [place] [address] Dr. Johnna Dixon Calcium [Mass/Vol] 8.9 mg/dL Normal 8.5-10.[address] [facility] Comment on above: Performed By: #### B MP #### [facility] [address] [place] [address] Dr. Johnna Dixon Chloride [Moles/Vol] 106 mmol/L Normal 98-107 [facility] Comment on above: Performed By: #### B MP #### [facility] [address] [place] [address] Dr. Johnna Dixon CO2 [Moles/Vol] 25.8 mmol/L Normal 21.0-32.[address] [facility] Comment on above: Performed By: #### B MP #### [facility] [address] [place] [address] Dr. Johnna Dixon Creatinine [Mass/Vol] 1.41 mg/dL Critically high 0.70-1.[address] [facility] Comment on above: Performed By: #### B MP #### [facility] [address] [address] [address] Johnna Dixon EGFR-AF IRISH >60 Normal >=[address] [facility] Comment on above: Performed By: #### B MP #### [facility] [address] [address] [address] Johnna Dixon EGFR-NON AF IRISH 50 mL/min/1.73m2 Critically low >=[address] [facility] Comment on above: Performed By: #### B MP #### [facility] [address] [address] [address] Johnna Dixon Glucose [Mass/Vol] 111 mg/dL Critically high 74-106 [facility] Comment on above: Performed By: #### B MP #### [facility] [address] [address] [address] Johnna Dixon Potassium [Moles/Vol] 3.4 mmol/L Critically low 3.5-5.[address] [facility] Comment on above: Performed By: #### B MP #### [facility] [address] [address] [address] Johnna Dixon Sodium [Moles/Vol] 141 mmol/L Normal 136-[address] [facility] Comment on above: Performed By: #### B MP #### [facility] [address] [address] [address] Johnna Dixon Urea nitrogen [Mass/Vol] 17.0 mg/dL Normal 7.0-18.[address] [facility] Comment on above: Performed By: #### B MP #### [facility] [address] [address] [address] Johnna Dixon Urea nitrogen/Creatinine [Mass ratio] 12.1 mg/mg Normal [facility] Comment on above: Performed By: #### B MP #### [facility] [address] [address] [address] Johnna Dixon SPUTUM GRAM STAINon 10-06-19 COMMENTS Normal [facility] Comment on above: Performed By: #### S PUTGS #### [facility] [address] [place] [address] Dr. Johnna Dixon DIPHTHEROIDS Normal [facility] Comment on above: Performed By: #### S PUTGS #### [facility] [address] [place] [address] Dr. Johnna Dixon EPITHELIALS <25 Normal [facility] Comment on above: Performed By: #### S PUTGS #### [facility] [address] [place] [address] Dr. Johnna Dixon FUNGAL ELEMENTS Normal [facility] Comment on above: Performed By: #### S PUTGS #### [facility] [address] [place] [address] Dr. Johnna Dixon GRAM NEG BACILLI FEW [facility] Comment on above: Performed By: #### S PUTGS #### [facility] [address] [place] [address] Dr. Johnna Dixon GRAM NEG DIPPLOCOCCI Normal [facility] Comment on above: Performed By: #### S PUTGS #### [facility] [address] [place] [address] Dr. Johnna Dixon GRAM POS BACILLI Normal [facility] Comment on above: Performed By: #### S PUTGS #### [facility] [address] [place] [address] Dr. Johnna Dixon GRAM POSITIVE COCCI FEW Normal [facility] Comment on above: Performed By: #### S PUTGS #### [facility] [address] [place] [address] Dr. Johnna Dixon WBC (Bld) [#/Vol] 10*3/uL [facility] Comment on above: Performed By: #### S PUTGS #### [facility] [address] [place] [address] Dr. Johnna Dixon SYMPTOMATIC COVID-19 ANTIGEN on 10-05-2022 EUA Statement SEE BELOW Normal [facility] Comment on above: Result Comment: [...] sooner. Performed By: #### C VDAGS #### [facility] [address] [place] [address] Dr. Johnna Dixon SARS-CoV-2 (COVID-19) RNA REX+probe Ql (Unsp spec) Negative Normal NEGATIVE [facility] Comment on above: Performed By: #### C VDAGS #### [facility] [address] [place] [address] [id number] [address] Johnna Dixon XR CHEST 1 Von [...] SOCORRO SERRANO Date: 2022-10-05 11:44 Normal [facility] US SINGLE QUAD RT UPPERon US [...] SOCORRO HUFFMAN Date: 2022-09-24 09:46 Normal [facility] AMYLASEon 09-21-2022 Amylase [Catalytic activity/Vol] 78 U/L Normal 25-115 [facility] Comment on above: Performed By: #### C VDTBH #### [facility] [address] [place] [address] Dr. Johnna Dixon CBC AUTO DIFFon 09-21-2022 BASO # 0.0 103/ul Normal 0.0-0.[address] [facility] Comment on above: Performed By: #### C VDTBH #### [facility] [address] [place] [address] Dr. Johnna Dixon Basophils/100 WBC (Bld) 0.5 % Normal 0.2-2.0 [facility] Comment on above: Performed By: #### C VDTBH #### [facility] [address] [place] [address] Dr. Johnna Dixon EO # 0.1 103/ul Normal 0.0-0.7 [facility] Comment on above: Performed By: #### C VDTBH #### [facility] [address] [place] [address] Dr. Johnna Dixon Eosinophils/100 WBC (Bld) 1.9 % Normal 0.9-7.0 [facility] Comment on above: Performed By: #### C VDTBH #### [facility] [address] [place] [address] Dr. Johnna Dixon Erythrocyte distribution width (RBC) [Ratio] 14.5 % Normal 11.0-15.[address] [facility] Comment on above: Performed By: #### C VDTBH #### [facility] [address] [place] [address] Dr. Johnna Dixon Hematocrit (Bld) [Volume fraction] 39.1 % Critically low 42.0-54.[address] [facility] Comment on above: Performed By: #### C VDTBH #### [facility] [address] [place] [address] Dr. Johnna Dixon Hemoglobin (Bld) [Mass/Vol] 12.8 g/dL Critically low 14.0-18.[address] [facility] Comment on above: Performed By: #### C VDTBH #### [facility] [address] [place] [address] Dr. Johnna Dixon IG # 0.05 10e3/ul Critically high 0.00-0.[address] [facility] Comment on above: Performed By: #### C VDTBH #### [facility] [address] [place] [address] Dr. Johnna Dixon IG % 0.7 % Critically high 0.0-0.[address] [facility] Comment on above: Performed By: #### C VDTBH #### [facility] [address] [place] [address] Dr. Johnna Dixon LYMPH # 2.0 103/ul Normal 1.2-3.[address] [facility] Comment on above: Performed By: #### C VDTBH #### [facility] [address] [place] [address] Dr. Johnna Dixon Lymphocytes/100 WBC (Bld) 27.4 % Normal 20.5-60.[address] [facility] Comment on above: Performed By: #### C VDTBH #### [facility] [address] [place] [address] Dr. Johnna Dixon MANUAL DIFF REQ NO Normal [facility] Comment on above: Performed By: #### C VDTBH #### [facility] [address] [place] [address] Dr. Johnna Dixon MCH (RBC) [Entitic mass] 31.3 pg Normal 25.9-34.[address] [facility] Comment on above: Performed By: #### C VDTBH #### [facility] [address] [place] [address] Dr. Johnna Dixon MCHC (RBC) [Mass/Vol] 32.7 g/dL Normal 29.9-35.2 [facility] Comment on above: Performed By: #### C VDTBH #### [facility] [address] [place] [address] Dr. Johnna Dixon MCV (RBC) [Entitic vol] 95.6 fL Critically high 80.0-94.0 [facility] Comment on above: Performed By: #### C VDTBH #### [facility] [address] [place] [address] Dr. Johnna Dixon MONO # 0.5 103/ul Normal 0.3-0.8 [facility] Comment on above: Performed By: #### C VDTBH #### [facility] [address] [place] [address] Dr. Johnna Dixon Monocytes/100 WBC (Bld) 6.9 % Normal 1.7-12.[address] [facility] Comment on above: Performed By: #### C VDTBH #### [facility] [address] [place] [address] Dr. Johnna Dixon NEUT # 4.7 103/ul Normal 1.4-6.[address] [facility] Comment on above: Performed By: #### C VDTBH #### [facility] [address] [place] [address] Dr. Johnna Dixon Neutrophils/100 WBC (Bld) 62.6 % Normal 43.0-75.0 [facility] Comment on above: Performed By: #### C VDTBH #### [facility] [address] [place] [address] Dr. Johnna Dixon Platelet mean volume (Bld) [Entitic vol] 9.3 fL Critically low 9.5-13.5 [facility] Comment on above: Performed By: #### C VDTBH #### [facility] [address] [place] [address] Dr. Johnna Dixon PLT 235 103/ul Normal 150-450 [facility] Comment on above: Performed By: #### C VDTBH #### [facility] [address] [place] [address] Dr. Johnna Dixon RBC 4.09 106/ul Critically low 4.70-6.10 [facility] Comment on above: Performed By: #### C VDTBH #### [facility] [address] [place] [address] Dr. Johnna Dixon WBC 7.4 103/ul Normal 4.0-11.0 [facility] Comment on above: Performed By: #### C VDTBH #### [facility] [address] [place] [address] Dr. Johnna Dixon LIPASEon 09-21-2022 Lipase [Catalytic activity/Vol] 114.0 U/L Normal 73.0-393.0 [facility] Comment on above: Performed By: #### C VDAGS #### [facility] [address] [place] [address] Dr. Johnna Dixon LIVER PROFILEon 09-21-2022 Albumin [Mass/Vol] 3.9 g/dL Normal 3.4-5.[address] [facility] Comment on above: Performed By: #### C VDTBH #### [facility] [address] [place] [address] Dr. Johnna Dixon Albumin/Globulin [Mass ratio] 1.6 {ratio} Normal [facility] Comment on above: Performed By: #### C VDTBH #### [facility] [address] [place] [address] Dr. Johnna Dixon ALP [Catalytic activity/Vol] 59 U/L Normal 46-116 [facility] Comment on above: Performed By: #### C VDTBH #### [facility] [address] [place] [address] Dr. Johnna Dixon ALT [Catalytic activity/Vol] 23 U/L Normal 16-63 [facility] Comment on above: Performed By: #### C VDTBH #### [facility] [address] [place] [address] Dr. Johnna Dixon AST [Catalytic activity/Vol] 8 U/L Critically low 15-37 [facility] Comment on above: Performed By: #### C VDTB #### [facility] [address] [place] [address] Dr. Johnna Dixon BILI, CONJUGATED 0.1 mg/dL Normal 0.0-0.[address] [facility] Comment on above: Performed By: #### C VDTBH #### [facility] [address] [place] [address] Dr. Johnna Dixon Bilirubin [Mass/Vol] 0.3 mg/dL Normal 0.2-1.[address] [facility] Comment on above: Performed By: #### C VDTBH #### [facility] [address] [place] [address] Dr. Johnna Dixon Globulin (S) [Mass/Vol] 2.5 g/dL Normal [facility] Comment on above: Performed By: #### C VDTBH #### [facility] [address] [place] [address] Dr. Johnna Dixon Protein [Mass/Vol] 6.4 g/dL Normal 6.4-8.[address] [facility] Comment on above: Performed By: #### C VDTBH #### [facility] [address] [place] [address] Dr. Johnna Dixon PROF CHEM 8 (BAS METB)on Anion gap [Moles/Vol] 13.4 mmol/L Normal [facility] Comment on above: Performed By: #### C VDTBH #### [facility] [address] [place] [address] Dr. Johnna Dixon Calcium [Mass/Vol] 8.9 mg/dL Normal 8.5-10.[address] [facility] Comment on above: Performed By: #### C VDTBH #### [facility] [address] [place] [address] Dr. Johnna Dixon Chloride [Moles/Vol] 106 mmol/L Normal 98-107 [facility] Comment on above: Performed By: #### C VDTBH #### [facility] [address] [place] [address] Dr. Johnna Dixon CO2 [Moles/Vol] 25.6 mmol/L Normal 21.0-32.[address] [facility] Comment on above: Performed By: #### C VDTBH #### [facility] [address] [address] [address] Johnna Dixon Creatinine [Mass/Vol] 1.21 mg/dL Normal 0.70-1.[address] [facility] Comment on above: Performed By: #### C VDTBH #### [facility] [address] [address] [address] Johnna Dixon EGFR-AF IRISH >60 Normal >=[address] [facility] Comment on above: Performed By: #### C VDTBH #### [facility] [address] [address] [address] Johnna Dixon EGFR-NON AF IRISH 59 mL/min/1.73m2 Critically low >=[address] [facility] Comment on above: Performed By: #### C VDTBH #### [facility] [address] [address] [address] Johnna Dixon Glucose [Mass/Vol] 115 mg/dL Critically high 74-106 [facility] Comment on above: Performed By: #### C VDTBH #### [facility] [address] [address] [address] Johnna Dixon Potassium [Moles/Vol] 4.0 mmol/L Normal 3.5-5.[address] [facility] Comment on above: Performed By: #### C VDTBH #### [facility] [address] [address] [address] Johnna Dixon Sodium [Moles/Vol] 141 mmol/L Normal 136-145 [facility] Comment on above: Performed By: #### C VDTBH #### [facility] [address] [address] [address] Johnna Dixon Urea nitrogen [Mass/Vol] 19.0 mg/dL Critically high 7.0-18.[address] [facility] Comment on above: Performed By: #### C VDTBH #### [facility] [address] [address] [address] Johnna Dixon Urea nitrogen/Creatinine [Mass ratio] 15.7 mg/mg Normal [facility] Comment on above: Performed By: #### C VDTBH #### [facility] [address] [address] [address] Johnna Dixon CREATININEon 08-04-2022 Creatinine [Mass/Vol] 1.31 mg/dL Critically high 0.70-1.[address] [facility] Comment on above: Performed By: #### C JANIS #### [facility] [address] [address] [address] Johnna Dixon EGFR-AF IRISH >60 Normal >=[address] [facility] Comment on above: Performed By: #### C JANIS #### [facility] [address] [address] [address] Johnna Dixon EGFR-NON AF IRISH 54 mL/min/1.73m2 Critically low >=[address] [facility] Comment on above: Performed By: #### C JANIS #### [facility] [address] [address] [address] Johnna Dixon CTA NECK WO W [...] ALLI CORTES Date: 2022-08-04 14:04 Normal [facility] US CAROTID ART BILon 02-07-2 023 US CAROTID ART SREEKANTH EXAMINATION: US [...] ALLI CORTES Date: 2022-07-28 12:[address] [facility] XR KNEE RT 4V or [...] DEBORAH ZARAGOZA Date: 2022-06-30 17:38 Normal [facility] XR RIBS RT PA Fab 2 [...] by: SOCORRO SERRANO Date: 2022-05-25 14:[address] [facility] XR RIBS RT PA Fab [...] atelectasis and small pleural effusion Normal [facility] CT CHEST WO CONon 04-18-2022 CT [...] SOCORRO BANSAL Date: 2022-04-18 16:17 Normal [facility] CULTURE URINEon 03-12-2022 CULTURE URINE Culture Observations: NO GROWTH. Normal [facility] Comment on above: Performed By: #### S PUTGS #### [facility] [address] [address] [address] Johnna Dixon COVID-19 Positive/NegativeOr dered By: Lionel Whitney on 02-13-2022 SARS-CoV-2 (COVID-19) N gene REX+probe Ql (Resp) Negative Negative [facility] Comment on above: Testing for SARS-CoV -2 by RT-PCR This test was developed and its performance characteristics determined by [employer] and validated at the [facility]. This test has not been [...] Coag (PPP) [Time] 34.8 s 25.1-36.5 [facility] Basophils Auto (Bld) [#/Vol] Ordered By: Lionel Whitney on 02-06-2022 Basophils (Bld) [#/Vol] 0.0 10*3/uL 0.0-0.2 [facility] Basophils/100 WBC Auto (Bld) Ordered By: Lionel Whitney on 02-06-2022 Basophils/100 WBC (Bld) 0.8 % . [facility] Blood hemoglobin measurement (mass/volume)Ordered By: Lionel Whitney on 02-06-2022 Hemoglobin (Bld) [Mass/Vol] 13.2 g/dL 13.0-17.0 [facility] Blood leukocytes automated c ount (number/volume)Ordered By: Lionel Whitney on 02-06-2022 WBC (Bld) [#/Vol] 5.7 10*3/uL 4.5-11.0 [facility] Creatinine and Glomerular fi ltration rate.predicted panel (S/P/Bld)Ordered By: Lionel Wihtney on 02-06-2022 Creatinine [Mass/Vol] 1.21 mg/dL 0.64-1.27 [facility] Eosinophils Auto (Bld) [#/Vo l]Ordered By: Lionel Whitney on 02-06-2022 Eosinophils (Bld) [#/Vol] 0.1 10*3/uL 0.0-0.45 [facility] Eosinophils/100 WBC Auto (Bl d)Ordered By: Lionel Whitney on 02-06-2022 Eosinophils/100 WBC (Bld) 1.7 % . [facility] Erythrocyte distribution wid th Auto (RBC) [Ratio]Ordered By: Lionel Whitney on 02-06-2022 Erythrocyte distribution width (RBC) [Ratio] 14.2 % 12.0-14.8 [facility] Estimated glomerular filtrat ion rate (GFR) non- AmericanOrdered By: Lionel Whitney on 02-06-2022 GFR/1.73 sq M.predicted among non-blacks MDRD (S/P/Bld) [Vol rate/Area] 59 mL/Min [facility] Hematocrit Auto (Bld) [Volum e fraction]Ordered By: Lionel Whitney on 02-06-2022 Hematocrit (Bld) [Volume fraction] 40.8 % 38.8-50.0 [facility] Laboratory - CoagulationOrde red By: Lionel Whtiney on 02-06-2022 PT Coag (PPP) [Time] 11.0 s 9.0-12.9 [facility] - Hematology and Cell countsOrdered By: Lionel Whitney on 02-06-2022 Nucleated RBC/100 WBC (Bld) [Ratio] 0.1 % 0-0.5 [facility] Lymphocytes Auto (Bld) [#/Vo l]Ordered By: Lionel Whitney on 02-06-2022 Lymphocytes (Bld) [#/Vol] 1.6 10*3/uL 1.00-4.8 [facility] Lymphocytes/100 WBC Auto (Bl d)Ordered By: Lionel Whitney on 02-06-2022 Lymphocytes/100 WBC (Bld) 27.4 % . [facility] MCH Auto (RBC) [Entitic mass ]Ordered By: Lionel Whitney on 02-06-2022 MCH (RBC) [Entitic mass] 29.7 pg 27.5-35.2 [facility] MCHC Auto (RBC) [Mass/Vol]Or dered By: Lionel Whitney on 02-06-2022 MCHC (RBC) [Mass/Vol] 32.4 g/dL 32.5-35.6 [facility] MCV Auto (RBC) [Entitic vol] Ordered By: Lionel Whitney on 02-06-2022 MCV (RBC) [Entitic vol] 91.6 fL 83.5-101 [facility] Monocytes Auto (Bld) [#/Vol] Ordered By: Lionel Whitney on 02-06-2022 Monocytes (Bld) [#/Vol] 0.5 10*3/uL 0.0-0.8 [facility] Monocytes/100 WBC Auto (Bld) Ordered By: Lionel Whitney on 02-06-2022 Monocytes/100 WBC (Bld) 8.7 % . [facility] Neutrophils Auto (Bld) [#/Vo l]Ordered By: Lionel Whitney on 02-06-2022 Neutrophils (Bld) [#/Vol] 3.5 10*3/uL 1.8-7.7 [facility] Neutrophils/100 WBC Auto (Bl d)Ordered By: Lionel Whitney on 02-06-2022 Neutrophils/100 WBC (Bld) 61.4 % . [facility] No Panel InformationOrdered By: Lionel Whitney on 02-06-2022 Estimated GFR () > 60 mL/Min [facility] Comment on above: GFR estimated refere nce range: According to KDOQI guidelines, <60 ml/min/1.73m2 is sufficient to diagnose a patient with chronic kidney disease. Pharmacy Creatinine Clearance (Chem N/A [facility] Platelet mean volume Auto (B ld) [Entitic vol]Ordered By: Lionel Whitney on 02-06-2022 Platelet mean volume (Bld) [Entitic vol] 8.4 fL 6.6-10.1 [facility] Platelet poor plasma interna tional normalized ratio (INR) by coagulation assay (relatOrdered By: Lionel Whitney on 02-06-2022 INR Coag (PPP) [Relative time] 1.0 {INR} [facility] Comment on above: INR Therapeutic [...] Platelets (Bld) [#/Vol] 248 10*3/uL 150-450 [facility] RBC Auto (Bld) [#/Vol]Ordere d By: Lionel Whitney on 02-06-2022 RBC (Bld) [#/Vol] 4.45 10*6/uL 3.90-5.60 [facility] Serum or plasma calcium eliezer urement (mass/volume)Ordered By: Lionel Whitney on 02-06-2022 Calcium [Mass/Vol] 9.7 mg/dL 8.2-10.2 [facility] Serum or plasma chloride sammy surement (moles/volume)Ordered By: Lionel Whitney on 02-06-2022 Chloride [Moles/Vol] 99 mmol/L 95-114 [facility] Serum or plasma glucose eliezer urement [...] on 02-06-2022 Potassium [Moles/Vol] 4.4 mmol/L 3.5-5.1 [facility] Serum or plasma sodium measu rement (moles/volume)Ordered By: Lionel Whitney on 02-06-2022 Sodium [Moles/Vol] 135 mmol/L 136-146 [facility] Serum or plasma total carbon dioxide measurement (moles/volume)Ordered By: Lionel Whitney on 02-06-2022 CO2 [Moles/Vol] 26.2 mmol/L 22.0-30.0 [facility] Serum or plasma urea nitroge n measurement (mass/volume)Ordered By: Lionel Whitney on 02-06-2022 Urea nitrogen [Mass/Vol] 20 mg/dL 9-23 [facility] COVID-19 Positive/NegativeOr dered By: Lionel Whitney on 10-27-2021 SARS-CoV-2 (COVID-19) N gene REX+probe Ql (Resp) Negative Negative [facility] Comment on above: Testing for SARS-CoV -2 by RT-PCR This test was developed and its performance characteristics determined by [employer] ([employer] and validated at the [facility]. This test has not been [...] Coag (PPP) [Time] 36.2 s 25.1-36.5 [facility] Basophils Auto (Bld) [#/Vol] Ordered By: Lionel Whitney on 10-17-2021 Basophils (Bld) [#/Vol] 0.0 10*3/uL 0.0-0.2 [facility] Basophils/100 WBC Auto (Bld) Ordered By: Lionel Whitney on 10-17-2021 Basophils/100 WBC (Bld) 0.6 % [facility] Blood hemoglobin measurement (mass/volume)Ordered By: Lionel Whitney on 10-17-2021 Hemoglobin (Bld) [Mass/Vol] 13.6 g/dL 13.0-17.0 [facility] Blood leukocytes automated c ount (number/volume)Ordered By: Lionel Whitney on 10-17-2021 WBC (Bld) [#/Vol] 5.9 10*3/uL 4.5-11.0 [facility] Creatinine and Glomerular fi ltration rate.predicted panel (S/P/Bld)Ordered By: Lionel Whitney on 10-17-2021 Creatinine [Mass/Vol] 0.96 mg/dL 0.64-1.27 [facility] Eosinophils Auto (Bld) [#/Vo l]Ordered By: Lionel Whitney on 10-17-2021 Eosinophils (Bld) [#/Vol] 0.1 10*3/uL 0.0-0.45 [facility] Eosinophils/100 WBC Auto (Bl d)Ordered By: Lionel Whitney on 10-17-2021 Eosinophils/100 WBC (Bld) 2.0 % [facility] Erythrocyte distribution wid th Auto (RBC) [Ratio]Ordered By: Lionel Whitney on 10-17-2021 Erythrocyte distribution width (RBC) [Ratio] 14.5 % 12.0-14.8 [facility] Estimated glomerular filtrat ion rate (GFR) non- AmericanOrdered By: Lionel Whitney on 10-17-2021 GFR/1.73 sq M.predicted among non-blacks MDRD (S/P/Bld) [Vol rate/Area] > 60 mL/Min [facility] Hematocrit Auto (Bld) [Volum e fraction]Ordered By: Lionel Whitney on 10-17-2021 Hematocrit (Bld) [Volume fraction] 41.5 % 38.8-50.0 [facility] Laboratory - CoagulationOrde red By: Lionel Whitney on 10-17-2021 PT Coag (PPP) [Time] 11.0 s 9.0-12.9 [facility] Laboratory - Hematology and Cell countsOrdered By: Lionel Whitney on 10-17-2021 Nucleated RBC/100 WBC (Bld) [Ratio] 0.0 % 0-0.5 [facility] Lymphocytes Auto (Bld) [#/Vo l]Ordered By: Lionel Whitney on 10-17-2021 Lymphocytes (Bld) [#/Vol] 1.6 10*3/uL 1.00-4.8 [facility] Lymphocytes/100 WBC Auto (Bl d)Ordered By: Lionel Whitney on 10-17-2021 Lymphocytes/100 WBC (Bld) 26.8 % [facility] MCH Auto (RBC) [Entitic mass ]Ordered By: Lionel Whitney on 10-17-2021 MCH (RBC) [Entitic mass] 29.3 pg 27.5-35.2 [facility] MCHC Auto (RBC) [Mass/Vol]Or dered By: Lionel Whitney on 10-17-2021 MCHC (RBC) [Mass/Vol] 32.7 g/dL 32.5-35.6 [facility] MCV Auto (RBC) [Entitic vol] Ordered By: Lionel Whitney on 10-17-2021 MCV (RBC) [Entitic vol] 89.8 fL 83.5-101 [facility] Monocytes Auto (Bld) [#/Vol] Ordered By: Lionel Whitney on 10-17-2021 Monocytes (Bld) [#/Vol] 0.6 10*3/uL 0.0-0.8 [facility] Monocytes/100 WBC Auto (Bld) Ordered By: Lionel Whitney on 10-17-2021 Monocytes/100 WBC (Bld) 10.6 % [facility] Neutrophils Auto (Bld) [#/Vo l]Ordered By: Lionel Whitney on 10-17-2021 Neutrophils (Bld) [#/Vol] 3.5 10*3/uL 1.8-7.7 [facility] Neutrophils/100 WBC Auto (Bl d)Ordered By: Lionel Whitney on 10-17-2021 Neutrophils/100 WBC (Bld) 60.0 % [facility] No Panel InformationOrdered By: Lionel Whitney on 10-17-2021 Estimated GFR () > 60 mL/Min [facility] Comment on above: GFR estimated refere nce range: According to KDOQI guidelines, <60 ml/min/1.73m2 is sufficient to diagnose a patient with chronic kidney disease. Pharmacy Creatinine Clearance (Chem N/A [facility] Platelet mean volume Auto (B ld) [Entitic vol]Ordered By: Lionel Whitney on 10-17-2021 Platelet mean volume (Bld) [Entitic vol] 8.3 fL 6.6-10.1 [facility] Platelet poor plasma interna tional normalized ratio (INR) by coagulation assay (relatOrdered By: Lionel Whitney on 10-17-2021 INR Coag (PPP) [Relative time] 1.0 {INR} [facility] Comment on above: INR Therapeutic [...] Platelets (Bld) [#/Vol] 249 10*3/uL 150-450 [facility] RBC Auto (Bld) [#/Vol]Ordere d By: Lionel Whitney on 10-17-2021 RBC (Bld) [#/Vol] 4.62 10*6/uL 3.90-5.60 [facility] Serum or plasma calcium eliezer urement (mass/volume)Ordered By: Lionel Whitney on 10-17-2021 Calcium [Mass/Vol] 9.7 mg/dL 8.2-10.2 [facility] Serum or plasma chloride sammy surement (moles/volume)Ordered By: Lionel Whitney on 10-17-2021 Chloride [Moles/Vol] 101 mmol/L 95-114 [facility] Serum or plasma glucose eliezer urement [...] on 10-17-2021 Potassium [Moles/Vol] 4.4 mmol/L 3.5-5.1 [facility] Serum or plasma sodium measu rement (moles/volume)Ordered By: Lionel Whitney on 10-17-2021 Sodium [Moles/Vol] 136 mmol/L 136-146 [facility] Serum or plasma total carbon dioxide measurement (moles/volume)Ordered By: Lionel Whitney on 10-17-2021 CO2 [Moles/Vol] 25.6 mmol/L 22.0-30.0 [facility] Serum or plasma urea nitroge n measurement (mass/volume)Ordered By: Lionel Whitney on 10-17-2021 Urea nitrogen [Mass/Vol] 18 mg/dL 9-23 [facility] Vital Signs Date Time Vital Sign Value Performing Clinician Facility 03-28-2024 14:58-0400 Body height 182.88 cm [facility] 03-28-2024 14:58-0400 Body mass index (BMI) [Ratio] 24.7 kg/m2 [facility] 03-28-2024 14:58-0400 Body weight 83 kg [facility] 10-11-2023 15:270400 Body height 182.88 cm MD Yolande Monterroso Work Phone: [facility] 10-11-2023 15:27-0400 Body mass index (BMI) [Ratio] 25 kg/m2 MD Yolande Monterroso Work Phone: [facility] 10-11-2023 15:27-0400 Body temperature 97.2 [degF] MD Yolande Monterroso Work Phone: [facility] 10-11-2023 15:27-0400 Body weight 83.91 kg MD Yolande Monterroso Work Phone: [facility] 10-11-2023 15:27-0400 Diastolic blood pressure 88 mm[Hg] MD Yolande Monterroso Work Phone: [facility] 10-11-2023 15:27-0400 Heart rate 79 /min MD Yolande Monterroso Work Phone: [facility] 10-11-2023 15:27-0400 Systolic blood pressure 146 mm[Hg] MD Yolande Monterroso Work Phone: [facility] 10-04-2023 10:35-0400 Blood Pressure Location Lionel WHITNEY [facility] 10-04-2023 10:35-0400 Diastolic blood pressure 88 mm[Hg] Lionel WHITNEY [facility] 10-04-2023 10:35-0400 Heart rate 72 /min Lionel WHITNEY [facility] 10-04-2023 10:35-0400 Respiratory rate 16 /min Lionel WHITNEY [facility] 10-04-2023 10:35-0400 Systolic blood pressure 136 mm[Hg] Lionel WHITNEY [facility] 08-12-2023 11:10-0500 Body height 182.88 cm MD Yolande Monterroso Work Phone: [facility] 08-12-2023 11:10-0500 Body mass index (BMI) [Ratio] 24.3 kg/m2 MD Yolande Monterroso Work Phone: [facility] 08-12-2023 11:10-0500 Body weight 81.19 kg MD Yolande Monterroso Work Phone: [facility] 02-10-2023 14:16-0400 Blood Pressure Location Qamar [facility] [place] 02-10-2023 14:16-0400 Diastolic blood pressure 80 mm[Hg] Qamar NILL [facility] [place] 02-10-2023 14:16-0400 Heart rate 70 /min Qamar sickweatherL [facility] [place] 02-10-2023 14:16-0400 Respiratory rate 16 /min Qamar sickweatherL [facility] Surgery [place] 02-10-2023 14:16-0400 Systolic blood pressure 124 mm[Hg] Qamar sickweatherL [facility] 12-03-2022 10:20-0400 Body height 182.88 cm Zoran Chavez Other [facility] Other 12-03-2022 10:20-0400 Body mass index (BMI) [Ratio] 25.49 kg/m2 Zoran Chavez Other [facility] Other 12-03-2022 10:20-0400 Body weight 85.28 kg Zoran Chavez Other [facility] Other 10-22-2022 10:20-0400 Body height 182.88 cm Zoran Chavez Other [facility] Other 10-22-2022 10:20-0400 Body mass index (BMI) [Ratio] 25.63 kg/m2 Zoran Chavez Other [facility] Other 10-22-2022 10:20-0400 Body weight 85.73 kg Zoran Chavez Other [employer] Other 10-22-2022 10:20-0400 Diastolic blood pressure 80 mm[Hg] Zoran Chavez Other [facility] Other 10-22-2022 10:20-0400 Systolic blood pressure 110 mm[Hg] Zoran Chavez Other [facility] Other 02-24-2022 10:43-0400 Blood Pressure Location Lionel WHITNEY [facility] 02-24-2022 10:43-0400 Diastolic blood pressure 80 mm[Hg] Lionel WHITNEY [facility] 02-24-2022 10:43-0400 Heart rate 65 /min Lionel WHITNEY [facility] 02-24-2022 10:43-0400 Respiratory rate 16 /min Lionel WHITNEY [facility] 02-24-2022 10:43-0400 Systolic blood pressure 140 mm[Hg] Lionel WHITNEY [facility] 02-17-2022 15:15-0400 Diastolic blood pressure 83 mm[Hg] MD Yolande Monterroso Work Phone: [facility] 02-17-2022 15:15-0400 Heart rate 58 /min MD Yolande Monterroso Work Phone: [facility] 02-17-2022 15:15-0400 Respiratory rate 16 /min MD Yolande Monterroso Work Phone: [facility] 02-17-2022 15:15-0400 SaO2% (BldA) [Mass fraction] 95 % MD Yolande Monterroso Work Phone: [facility] 02-17-2022 15:15-0400 Systolic blood pressure 166 mm[Hg] MD Yolande Monterroso Work Phone: [facility] 02-17-2022 14:30-0400 Body height 182.88 cm MD Yolande Monterroso Work Phone: [facility] 02-17-2022 14:30-0400 Body mass index (BMI) [Ratio] 26.2 kg/m2 MD Yolande Monterroso Work Phone: [facility] 02-17-2022 14:30-0400 Body weight 87.7 kg MD Yolande Monterroso Work Phone: [facility] 02-17-2022 14:17-0400 Body temperature 97.6 [degF] MD Yolande Monterroso Work Phone: [facility] 02-17-2022 13:52-0400 Inhaled oxygen flow rate 10 L/min MD Yolande Monterroso Work Phone: [facility] 10-17-2021 11:42-0400 Body height 180.34 cm MD Yolande Monterroso Work Phone: [facility] 10-17-2021 11:42-0400 Body mass index (BMI) [Ratio] 27 kg/m2 MD Yolande Monterroso Work Phone: [facility] 10-17-2021 11:42-0400 Body temperature 98.4 [degF] MD Yolande Monterroso Work Phone: [facility] 10-17-2021 11:42-0400 Body weight 88 kg MD Yolande Monterroso Work Phone: [facility] 10-17-2021 11:42-0400 Diastolic blood pressure 90 mm[Hg] MD Yolande Monterroso Work Phone: [facility] 10-17-2021 11:42-0400 Heart rate 64 /min MD Yolande Monterroso Work Phone: [facility] 10-17-2021 11:42-0400 SaO2% (BldA) [Mass fraction] 100 % MD Yolande Monterroso Work Phone: [facility] 10-17-2021 11:42-0400 Systolic blood pressure 172 mm[Hg] MD Yolande Monterroso Work Phone: [facility] Encounters Encounter Date Encounter Type Care Provider Facility Start: 03-28-2024 End: 03-28-2024 ambulatory [facility] Work Phone: Start: 03-28-2024 End: 03-28-2024 Patient encounter procedure [facility] Work Phone: Start: 03-27-2024 End: 03-27-2024 ambulatory Tamiko Landa MD Facility:[facility] Start: 10-26-2023 End: 10-26-2023 ambulatory Lionel WHITNEY [place] Start: 10-26-2023 End: 10-26-2023 Patient encounter procedure Lionel WHITNEY [facility] Start: 10-11-2023 End: 10-11-2023 ambulatory MD Yolande Monterroso Work Phone: [facility] Work Phone: Start: 10-11-2023 End: 10-11-2023 Patient encounter procedure MD Yolande Monterroso Work Phone: [facility] Work Phone: Start: 10-04-2023 End: 10-04-2023 ambulatory Lionel WHITNEY Facility:[facility] Start: 10-04-2023 End: 10-04-2023 Patient encounter procedure Lionel WHITNEY [facility] Start: 09-30-2023 End: 09-30-2023 ambulatory KELLY ORTIZ Not Available Start: 09-09-2023 End: 09-09-2023 ambulatory VASU GALEANO Not Available Start: 08-28-2023 End: 08-28-2023 ambulatory Yolande Monterroso Facility:[facility] Start: 08-28-2023 End: 08-28-2023 Patient encounter procedure MD Yolande Monterroso Work Phone: [facility] [place] Work Phone: Start: 08-12-2023 End: 08-12-2023 ambulatory Yolande Monterroso Facility:[facility] Start: 08-12-2023 End: 08-12-2023 ambulatory MD Yolande Monterroso Work Phone: [facility] Work Phone: Start: 08-12-2023 End: 08-12-2023 Patient encounter procedure MD Yolande Monterroso Work Phone: [facility] [place] Work Phone: Start: 08-12-2023 End: 08-12-2023 ambulatory MD Yolande Monterroso Work Phone: [facility] Work Phone: Start: 08-12-2023 End: 08-12-2023 Patient encounter procedure MD Yolande Monterroso Work Phone: [facility] Work Phone: Start: 07-26-2023 End: 07-26-2023 ambulatory Tamiko Landa MD Facility: [facility] Start: 04-27-2023 End: 04-27-2023 ambulatory Lionel WHITNEY Facility[place] Start: 04-27-2023 End: 04-27-2023 Patient encounter procedure Lionel WHITNEY [facility] Start: 03-10-2023 End: 03-10-2023 ambulatory Qamar R NILL Facility:[id number] Start: 02-10-2023 End: 02-10-2023 ambulatory Qamar R NILL Facility:[facility] Start: 02-10-2023 End: 02-10-2023 Patient encounter procedure Qamar R NILL [facility] Start: 01-20-2023 End: 01-20-2023 ambulatory Lioneljameel WHITNEY Facility: [place] Start: 01-14-2023 End: 01-14-2023 ambulatory Lionel WHITNEY Facility:[id number] Start: 01-05-2023 End: 01-05-2023 ambulatory Lionel WHITNEY Facility[place] Start: 01-05-2023 End: 01-05-2023 Patient encounter procedure Lionel Burgos DEVONTE [facility] Start: 01-01-2023 End: 01-01-2023 ambulatory Yolande Monterroso Facility:[facility] Start: 01-01-2023 End: 01-01-2023 ambulatory MD Yolande Monterroso Work Phone: [facility] Work Phone: Start: 01-01-2023 End: 01-01-2023 Patient encounter procedure MD Yolande Monterroso Work Phone: [facility] [place] Work Phone: Start: 12-03-2022 End: 12-03-2022 ambulatory Zoran Chavez Other [facility] Other Start: 12-03-2022 Office outpatient visit 15 minutes Zoran Chavez [facility] [place] operated by [facility] Start: 11-20-2022 ambulatory ANDRIUS GIEDRAITIS Faci lity:[facility] Start: 10-28-2022 End: 10-29-[address] NELLY HERRERA Facility:[facility] Start: 10-27-2022 End: 11-18-[address] ZORAN CHAVEZ Facility:[facility] Start: 10-23-2022 End: 10-24-[address] ZORAN CHAVEZ Facility:[facility] Start: 10-22-2022 End: 10-22-2022 ambulatory Zoran Chavez Other [facility] Other Start: 10-22-2022 Office outpatient visit 15 minutes Zoran Chavez [facility] Start: 10-05-2022 End: 10-06-[address] YOLANDE MONTERROSO . Facility:[facility] Start: 09-24-2022 End: 09-25-[address] YOLANDE MONTERROSO . Facility:[facility] Start: 09-21-2022 End: 09-22-[address] LIONEL WHITNEY . Facility:[facility] Start: 09-21-2022 End: 09-21-2022 Patient encounter procedure Lionel WHITNEY [facility] Start: 08-19-2022 End: 08-20-[address] LIONEL WHITNEY . Facility:[facility] Start: 08-17-2022 End: 08-17-2022 Patient encounter procedure Lionel WHITNEY [facility] Start: 08-04-2022 End: 08-05-[address] YOLANDE MONTERROSO . Facility:[facility] Start: 07-28-2022 End: 07-29-[address] YOLANDE MONTERROSO . Facility:[facility] Start: 07-23-2022 End: 07-23-[address] LIONEL WHITNEY . Facility:[facility] Start: 07-20-2022 End: 07-20-2022 Patient encounter procedure Lionel WHITNEY [facility] Start: 07-07-2022 End: 07-07-2022 Patient encounter procedure Lionel WHITNEY [facility] Start: 06-30-2022 End: 07-01-[address] YOLANDE MONTERROSO . Facility:[facility] Start: 06-04-2022 End: 06-04-[address] YOLANDE MONTERROSO . Facility:[facility] Start: 05-25-2022 End: 05-26-[address] YOLANDE MONTERROSO . Facility:[facility] Start: 05-18-2022 End: 05-18-2022 Patient encounter procedure Lionel WHITNEY [facility] Start: 04-27-2022 End: 04-28-[address] YOLANDE MONTERROSO . Facility:[facility] Start: 04-18-2022 End: 04-18-[address] FELICIA GALDAMEZ . Facility:[facility] Start: 04-15-2022 End: 04-15-2022 Patient encounter procedure Lionel WHITNEY [facility] Start: 03-26-2022 End: 03-26-[address] LIONEL WHITNEY . Facility:[facility] Start: 03-12-2022 End: 03-13-[address] YOLANDE MONTERROSO . Facility:[facility] Start: 03-09-2022 End: 03-09-2022 Patient encounter procedure Lionel WHITNEY [facility] Start: 02-27-2022 End: 02-27-2022 Lab Drop off Lionel WHITNEY [facility] Start: 02-27-2022 End: 02-27-2022 Patient encounter procedure Lionel WHITNEY [facility] Start: 02-24-2022 End: 02-24-2022 Patient encounter procedure Lionel WHITNEY [facility] Start: 02-17-2022 End: 02-17-2022 Admission to same day surgery center MD Yolande Monterroso Work Phone: [facility] Start: 02-13-2022 End: 02-13-2022 Patient encounter procedure MD Yolande Monterroso Work Phone: [facility]Surgical [facility] Start: 02-06-2022 End: 02-06-2022 Patient encounter procedure MD Yolande Monterroso Work Phone: [facility] Start: 11-11-2021 End: 11-11-2021 Patient encounter procedure Lionel WHITNEY [facility] Start: 11-05-2021 End: 11-05-2021 Patient encounter procedure Lionel WHITNEY [facility] Start: 10-29-2021 End: 10-29-2021 Admission to same [facility] surgery [place] MD Yolande Monterroso Work Phone: [facility] Start: 10-27-2021 End: 10-27-2021 Patient encounter procedure MD Yolande Monterroso Work Phone: [facility] Start: 10-17-2021 End: 10-17-2021 Patient encounter procedure MD Yolande Monterroso Work Phone: [facility] Procedures Date Procedure Procedure Detail [...] above: Performed By: #### P SAD #### [facility] [address] [place] [address] Dr. Johnna Dixon Start: 02-17-2022 Transurethral resect [...] WHITNEY Comment on above: had recently at [facility] Start: 05-21-2014 Colonoscopy Qamar DOSS Start: 06-21-2010 Complete repair of r otator cuff Lionel WHITNEY Comment on above: right Start: 06-21-1998 Shoulder reconstruction Lionel WHITNEY Comment on above: left possibly a scre w in there per pt Start: 06-21-1964 Appendectomy Lionel KEELY VILLANUEVARozina Arthroplasty of the ankle Jose Alfredo henderson WHITNEY Comment on above: 1990 Arthroscopy of knee Lionel WHITNEY Klippel-Feil sequenc e (disorder) Lionel WHITNEY Plan of Treatment Date Care Activity Detail Author Start: 10-09-2024 ambulatory Ambulatory Facility:[facility] Start: 08-12-2023 Patient referral [facility] Work Phone: Start: 08-12-2023 X-ray of cervical spine XR cer vical spine w flex/ext [facility] Start: 08-12-2023 X-ray of lumbar spin e, six views including bending views XR lumbar spine 6V w bending [facility] Start: 08-12-2023 XR Cervical spine Vi ews W flexion and W extension [facility] Start: 08-12-2023 XR Lumbar spine Views F [facility] Start: 02-17-2022 End: 02-17-2022 [facility] Work Phone: Start: 02-17-2022 Transurethral resect ion of bladder neoplasm OR Cysto/TURBT/Bladder Biopsy/Fulg (Not Applicable) [facility] Start: 02-17-2022 End: 02-17-2022 Admission to same day surgery center Departed Surgical Day Care [facility] [place] Start: 02-13-2022 End: 02-13-2022 Patient encounter procedure Departed Clinical [facility] Vtn-Pkj-Tsxnvikt Testing Microbial culture of sputum [facility] MR Cervical spine WO and W contrast IV [facility] Patient referral [facility] Work Phone: Immunizations Immunization Date Immunization Notes Care Provider Gary francisco 07-13-2023 zoster vaccine recombinant Lionel WHITNEY [facility] 03-23-2023 influenza virus vacc ine, unspecified formulation Lionel WHITNEY [facility] 03-23-2023 zoster vaccine recombinant Lionel WHITNEY [facility] 04-16-2022 SARS-CoV-2 (COVID-19 ) [id number] Qamar SMITH [facility] 03-27-2022 influenza virus vacc ine, unspecified formulation Qamar SMITH [facility] 05-06-2021 COVID-19 mRNA-1273 (Moderna) MD Yolande Monterroso Work Phone: [facility] 09-19-2020 COVID-19 mRNA-1273 (Moderna) MD Yolande Monterroso Work Phone: [facility] Comment on above: Result Comment: 2022: [id number] 08-22-2020 COVID-19 mRNA-1273 (Moderna) MD Yolande Monterroso Work Phone: [facility] Comment on above: Result Comment: 2022: [id number] 06-21-2020 SARS-CoV-2 (COVID-19 ) mRNA-1273 vaccine Lionel WHITNEY [facility] 05-23-2020 influenza virus vacc ine, unspecified formulation Qamar NILDmitriy [facility] 04-03-2020 influenza virus vacc ine, unspecified formulation Qamar NIL[employer] [facility] 05-29-2019 influenza virus vacc ine, unspecified formulation [employer] [facility] 04-14-2019 influenza, unspecifi ed formulation [employer] [facility] 09-26-2018 tetanus and diphther ia toxoids, adsorbed, preservative free, for adult use (2 Lf of tetanus toxoid and 2 Lf of diphtheria toxoid) [employer] [facility] 10-11-2017 pneumococcal polysaccharide vaccine, 23 valent [employer] [facility] 07-22-2016 pneumococcal conjuga te vaccine, 13 valent [employer] [facility] 06-29-2013 tetanus toxoid, redu mirtha diphtheria toxoid, and acellular pertussis vaccine, adsorbed [employer] [facility] 03-10-2000 Td(adult) unspecifie d formulation [employer] [facility] Payers Date Payer Category Payer Self-pay [id number] 2022 Unknown 1958 Medicare [id number] 1959 Unknown [id number] 2.16.840.1.166883.19 1951 Unknown [id number] 2.16.840.1.459010.3.579.2. 593 1951 Unknown [id number] 2.16.840.1.048484.3.579.2. 593 1951 Unknown [id number] 2.16.840.1.176994.3.579.2. 593 1951 Unknown [id number] 2.16.840.1.752385.3.579.2. 593 1951 Unknown [id number] 2.16.840.1.261612.3.579.2. 593 1951 Unknown [id number] 2.16.840.1.468981.3.579.2. 593 1951 Unknown [id number] 2.16.840.1.726652.3.579.2. 593 1951 Unknown [id number] 2.16.840.1.434864.3.579.2. 593 1951 Unknown [id number] 2.16.840.1.862794.3.579.2. 593 1951 Unknown [id number] 2.16.840.1.882246.3.579.2. 593 1951 Unknown [id number] 2.16.840.1.041029.3.579.2. 593 1951 Unknown [id number] 2.16.840.1.162409.3.579.2. 593 1951 Unknown [id number] 2.16.840.1.989606.3.579.2. 593 1951 Unknown [id number] 2.16.840.1.468471.3.579.2. 593 1951 Unknown [id number] 2.16.840.1.924389.3.579.2. 593 1951 Unknown [id number] 2.16.840.1.837644.3.579.2. 593 1951 Unknown [id number] 2.16.840.1.750945.3.579.2. 593 1951 Unknown [id number] 2.16.840.1.642995.3.579.2. 593 1951 Unknown [id number] 2.16.840.1.606824.3.579.2. 593 1951 Unknown [id number] 2.16.840.1.197454.3.579.2. 1259 1951 Unknown [id number] 2.16.840.1.377844.3.579.2. 1259 1951 Unknown [id number] 2.16.840.1.202602.3.579.2. 727 1951 Unknown [id number] 2.16.840.1.443744.3.579.2. 727 1951 Unknown [id number] 2.16.840.1.767411.3.579.2. 727 1951 Unknown [id number] 2.16.840.1.555020.3.579.2. 727 1951 Unknown [id number] 2.16.840.1.795909.3.579.2. 727 1951 Unknown [id number] 2.16.840.1.720215.3.579.2. 727 1951 Unknown [id number] 2.16.840.1.390138.3.579.2. 727 1951 Unknown [id number] 2.16.840.1.252216.3.579.2. 727 1951 Unknown [id number] 2.16.840.1.129175.3.579.2. 727 1951 Unknown [id number] 2.16.840.1.673066.3.579.2. 196 1950 Unknown [id number] 2.16.840.1.486110.3.579.2. 196 Medicare Medicare [id number] Private Health Insurance [id number] Unknown [address] [place] [id number] Unknown [id number] 2.16.840.1.712321.3.579.2. 531 Unknown [id number] 2.16.840.1.393770.3.579.2. 531 Unknown [id number] 2.16.840.1.622896.3.579.2. 531 Social History Date Type Detail Facility Start: 10-17-2021 End: 02-17-2022 Tobacco smoking status NCIS Ex-smoker (finding) [facility] Comment on above: pt quit smoking 10+ yrs ago Start: 1950 Sex Assigned At Male [facility] Start: 11-05-2021 Tobacco smoking status Never s moked tobacco (finding) [facility] Tobacco smoking status Never [facility] [place] Comment on above: pt quit smoking 10+ yrs ago Sex Assigned At Male [facility] [place] Medical Equipment Procedure Code Equipment Code Equipment Original Text Equipment Identifier Dates Transurethral resection of bladder tumor (TURBT) with cystoscopy Polymeric ureteral stent ()[id number] FDA Start: 10-29-2021 Decompression, spine, cervical, posterior approach Bone-screw internal spinal fixation system, non-sterile ()[id number] FDA Start: 04-18-2020 Decompression, spine, cervical, posterior approach Bone-screw internal spinal fixation system, non-sterile ()[id number] FDA Start: 04-18-2020 Decompression, spine, cervical, posterior approach Bone-screw internal spinal fixation system, non-sterile ()[id number] FDA Start: 04-18-2020 Decompression, spine, cervical, posterior approach Bone-screw internal spinal fixation system, non-sterile ()[id number] FDA Start: 04-18-2020 Decompression, spine, cervical, posterior approach Bone-screw internal spinal fixation system, non-sterile ()[id number] FDA Start: 04-18-2020 Goals Date Patient Goal Desired Activity /State Functional Status Date Assessment Result Facility 10-26-2023 Functional Status N/A [facility] 10-04-2023 Functional Status N/A [facility] 04-27-2023 Functional Status N/A [facility] 02-10-2023 Functional Status N/A [facility] Functional Status N/A [facility] 02-24-2022 Functional Status N/A [facility] Clinical Notes 11-04-2021 to 10-26-2023 Note Date [...] Care 09/29/2023 09:06:13 With:Lionel WHITNEY Address: [address] [place] [address] Business (1) When: Unknown Comments:Office will call to schedule follow up [facility] 10-26-2023 Note [id number] [facility] 10-26-2023 Note Custom Cystoscopy ? Voiding [...] you have a fever over 100 degrees. [facility] 10-04-2023 Hospital Discharge instructions Patient Education [...] if anything looks unusual. Men with a yuapdo-vasg-jdaodr risk for skin cancer may want to see a electronic masking system operator (dump attendant) for an annual body check. What are the benefits of screening? Cancer screening is done to look for cancer in the very early stages, before it spreads and becomes harder to treat and before you would start to notice symptoms. Finding cancer early improves the chances of successful treatment. It may save your life. Where to find more information [place] [employer]: www.cancer.org Centers for Disease Control and Prevention: www.cdc.gov National Cancer [place]: www.cancer.gov Contact a health care provider if: [...] provider. Document Revised: 11/03/2021 Document Reviewed: 05/03/2020 Elsevier Patient Education 2022 Flashnotes. Follow Up Care 10/01/2022 10:55:16 With:DEVONTE NOBLE, Lionel Burgos, [place] Address: [facility] [address] [place] [address] [phone] When: Unknown Comments:1 yr w/ PSA [facility] 04-27-2023 Hospital Discharge instructions Patient [...] WHITNEY Address: [facility] [address] [place] [address]- [facility] (1) When: Unknown Comments:Office will call to schedule follow up [facility] 04-27-2023 Note [id number]#[id number] [facility] 04-27-2023 Note Custom Cystoscopy ? Voiding [...] you have a fever over 100 degrees. [facility] 02-10-2023 Note Chief Complaint consultation [...] Cervical vertebral fu (more content not included)... [facility] Comment on above: Result Comment: [...] WHITNEY Address: [facility] [address] [place] [address] Business (1) When: Unknown Comments:Office will call to schedule follow up [facility] 01-05-2023 Note [id number]#[id number]:127 [facility] 01-05-2023 Note Custom Cystoscopy ? Voiding [...] you have a fever over 100 degrees. [facility] 12-03-2022 Evaluation note Encounter Date [...] M46.1) Nov, Neurogenic claudication (ICD-10 - R29.818) [facility] 05-04-2023 Evaluation note* Encounter Date Diagnosis [...] spine October, Neurogenic claudication (ICD-10 - R29.818) [facility] 04-03-2023 Hospital Discharge instructions Patient Education [...] if anything looks unusual. Men with a vqsswa-fafn-uqejap risk for skin cancer may want to see a electronic masking system operator (dump attendant) for an annual body check. Where to find more information National Cancer [place]: https://www.cancer.gov/about-cancer/screening Centers for Disease Control and Prevention: https://www.cdc.gov/cancer/dcpc/prevention/screening.htm [place] [employer]: https://www.cancer.org/latest-news/6-nwrwqr-swspmfbgd-oknbr-smd-vzh.html Contact a health care provider if: You [...] 03/04/2017 Document Revised: 02/24/2019 Document Reviewed: 03/04/2017 [employer] Patient Education 2020 Flashnotes. Follow Up Care 09/19/2021 11:05:08 With:DEVONTE NOBLE, Lionel Burgos, URL Address: [facility] [address] [place] [address]- When: Unknown [facility] [place] 01-17-2023 Hospital Discharge instructions [...] With:Lionel WHITNEY Address: [facility] [address] [place] [address]- Business (1) When: Unknown Comments:Office will call to schedule follow up [facility]09-06-2022 Hospital Discharge instructions Patient Education 02/24/2022 11:23:44 [...] if anything looks unusual. Men with a ulbihj-dwim-tvmvhv risk for skin cancer may want to see a electronic masking system operator (dump attendant) for an annual body check. Where to find more information National Cancer [place]: https://www.cancer.gov/about-cancer/screening Centers for Disease Control and Prevention: https://www.cdc.gov/cancer/dcpc/prevention/screening.htm [place] [employer]: https://www.cancer.org/latest-news/1-tlzdyx-ydpzipclb-trcgj-kig-ulm.html Contact a health care provider if: You [...] 03/04/2017 Document Revised: 02/24/2019 Document Reviewed: 03/04/2017 [employer] Patient Education 2020 Flashnotes. Follow Up Care 02/05/2022 13:48:40 With:DEVONTE NOBLE, Lionel R, URL Address: [facility] [address] [place] [address]- [phone] When: Unknown [facility] [place] [id number] Hospital Discharge instructions Patient Education 11/11/2021 09:47:46 [...] Address: [facility] [address] [place] [address]- Business (1) When: Unknown Comments:Keep scheduled appointment [facility]05-17-2022 Hospital Discharge instructions Patient Education 11/04/2021 14:11:16 [...] who: Are older than age 65. Are -[place]. Are obese. Have a family history of [...] cells. Follow these instructions at home: Take ezji-abc-mfkqlli and prescription medicines only as told by [...] 06/07/2006 Document Revised: 05/20/2018 Document Reviewed: 02/15/2017 [employer] Patient Education 2020 Flashnotes. Follow Up Care 10/14/2021 11:26:04 With:Lionel WHITNEY MD, URL Address: [facility] [address], [place] [address]- When: Unknown [facility] [employer]Site [email or web address] + Plan note Future Appointments Appointment Date:09/21/2022 09:45:00 AM Scheduled Provider:Lionel WHITNEY MD Location:[facility] [place] Appointment Type:URO Office Visit [facility] [employer] 3scaleation + Plan note Future Appointments Appointment Date:03/09/2022 09:00:00 AM Scheduled Provider: Location[facility] [place] Appointment Type:URO Nurse Visit Appointment Date:04/15/2022 09:00:00 AM Scheduled Provider: Location:[facility] [place] Appointment Type:URO Nurse Visit Appointment Date:09/21/2022 09:45:00 AM Scheduled Provider:Lionel WHITNEY MD Location:[facility] [place] Appointment Type:URO Office Visit [facility] Evaluation + Plan note Future Appointments Appointment Date:03/09/2022 09:00:00 AM Scheduled Provider: Location:[facility] [place] Appointment Type:URO Nurse Visit Appointment Date:04/15/2022 09:00:00 AM Scheduled Provider: Location:[facility] [place] Appointment Type:URO Nurse Visit Appointment Date:09/21/2022 09:45:00 AM Scheduled Provider:Lionel WHITNEY MD Location:[facility] [place] Appointment Type:URO Office Visit Diagnostic Tests Pending * Urine Culture [facility]22 [facility] Future Appointments Appointment Date:04/15/2022 09:00:00 AM Scheduled Provider: Location:[facility] Appointment Type:URO Nurse Visit Appointment Date:09/21/2022 09:45:00 AM Scheduled Provider:Lionel WHITNEY MD [facility] Appoint[facility] Type:URO Office Visit [facility] evaluation + Plan note Future Appointments Appointment Date:07/20/2022 10:00:00 AM Scheduled Provider: Location:[facility] Appointment Type:URO Nurse Visit Appointment Date:08/17/2022 10:00:00 AM Scheduled Provider: Location:[facility] Appointment Type:URO Nurse Visit Appointment Date:09/21/2022 09:45:00 AM Scheduled Provider:Lionel WHITNEY MD Location:[facility] Appointment Type:URO Office Visit Diagnostic Tests Pending * UroVysion FISH ([facility]) 07[facility]07/22 [facility] Future Appointments Appointment Date:08/17/2022 10:00:00 AM Scheduled Provider: Location:[facility] Appointment Type:URO Nurse Visit Appointment Date:09/21/2022 09:45:00 AM Scheduled Provider:Lionel WHITNEY MD Location:[facility] Appointment Type:URO Office Visit [facility] Evaluation + Plan note Future Appointments Appointment Date:09/22/2022 02:00:00 PM Scheduled Provider: Location:[facility] Appointment Type:Urology CALL PAT FT Appointment Date:09/29/2022 11:15:00 AM Scheduled Provider: Location:[facility] Appointment Type:Urology FT [facility] evaluation + Plan note Future Appointments Appointment Date:09/22/2022 02:00:00 PM Scheduled Provider: Location:[facility] Appointment Type:Urology CALL PAT FT Appointment Date:09/29/2022 11:15:00 AM Scheduled Provider: Location:[facility] Appointment Type:Urology FT Diagnostic Tests Pending * Urine Cytology ([facility]) 4/3/23 [facility] evaluation + Plan note Future Appointments Appointment Date:10/04/2023 10:15:00 AM Scheduled Provider:Lionel WHITNEY MD Location:[facility] Appointment Type:URO Office Visit Diagnostic Tests Pending * UroVysion Fish and Urine Cyto ([facility]) 01/05/23 [facility] Future Appointments Appointment Date:10/04/2023 10:15:00 AM Scheduled Provider:Lionel WHITNEY MD Location:[facility] Appointment Type:URO Office Visit General Surgery [place] Evaluation + Plan note Future Appointments Appointment Date:10/04/2023 10:15:00 AM Scheduled Provider:Lionel WHITNEY MD Location:[facility] Appointment Type:URO Office Visit Diagnostic Tests Pending * UroVysion Fish and Urine Cyto ([facility]) 04/27/23 [facility] Future Appointments Appointment Date:10/20/2023 12:00:00 PM Scheduled Provider: Location:[facility] Appointment Type:Urology CALL PAT FT Appointment Date:10/26/2023 10:00:00 AM Scheduled Provider: Location:[facility] Appointment Type:Urology FT Appointment Date:10/09/2024 10:15:00 AM Scheduled Provider:Lionel WHITNEY MD Location:[facility] Appointment Type:URO Office Visit Diagnostic Tests Pending * PSA Total 10/04/23 [facility] evaluation + Plan note Future Appointments Appointment Date:10/09/2024 10:15:00 AM Scheduled Provider:Lionel WHITNEY MD Location:[facility] Appointment Type:URO Office Visit Diagnostic Tests Pending * UroVysion Fish and Urine Cyto ([facility]) 10/26/23 [facility] assessment information available [facility] Work Phone: Evaluation note* Diagnosis Onset Date Resolution Status Spinal stenosis of cervical region with radiculopathy acute Spinal stenosis of lumbar region with radiculopathy acute [facility] Work Phone: Evaluation note* Diagnosis Onset Date Resolution Status Spinal stenosis of cervical region with radiculopathy acute Spinal stenosis of lumbar region with radiculopathy acute Colonization status acute COPD (chronic obstructive pulmonary disease) acute [facility] Work Phone: History general Narrative - Reported* [...] KNEE SCOPE Surgical History L shoulder NAE [facility] Hospitalization History FLU X2-3 DAYS Hospitalization History see surg. hx. [facility] Other Hospital course Narrative No data available for this section [facility] Hospital Discharge instructions No data available for this section [facility] progress note No data available for this section [facility] Chief Complaint and Reason for [...] Colonization status COPD (chronic obstructive pulmonary disease) Chief Complaint mri results from 08/27 Family History No Family History Records Found Relationship Condition Age at Onset Recorded Date/T ashlyn father Diabetes mellitus Unknown Hypertension Unknown Not Specified Unknown sister Calculus of kidney Unknown Relationship Condition Age at Onset Recorded Date/T ashlyn father Diabetes mellitus Unknown Hypertension Unknown Not Specified Unknown sister Calculus of kidney Unknown father Hypertension Unknown Diabetes mellitus Unknown grandparent Unknown Relationship Condition Age at Onset Recorded Date/T ashlyn father Diabetes mellitus Unknown Hypertension Unknown mother Unknown Diabetes mellitus Unknown sister Calculus of kidney Unknown grandparent Unknown Advance Directives No Advanced Directives Records Found Advance Directive Response Recorded Date/ Time Advance Directives No July 2:58pm Advance Directive Response Recorded Date/ Time Advance Directives No July 1:58pm Reason for Referral Reason evaluate and treat f or neck and back pain Diagnosis 1 Cervical spondylosis (M47.812) Referral Organization [facility] Referring Provider First Name Zoran Referring Provider Last Name Scott Referring Provider Specialty Neurologica l Surgery Referred Organization [facility] Referred Address [address] [place], [place],[address] Referred Provider Specialty Physical The rapist Referral Priority Routine Reason evaluate and tr eat for neck and back pain Diagnosis 1 Cervical spondylosis (M47.812) Diagnosis 2 Low back pain, unspe cified (M54.50) Referral Organization [facility] Referring Provider First Name Zoran Referring Provider Last Name Scott Referring Provider Specialty Neurologica l Surgery Referred Organization [facility] Referred Provider Raoul Soriano Referred Address [address] [place], [place],[address] Referred Provider Specialty Pain Medicin e Referral [...] October 11, 2023 End: October 11, 2023 Team Status: Inactive Member Role Status Shawn Monterroso MD Primary Care Provider Active Start: March 28, 2024 End: March 28, 2024 Zoran Chavez MD Attending Provider Active Star t: March 28, 2024 End: March 28, 2024 Goals (unrecognized section and content) Goals may [...] and content) DATE CREATED AUTHOR 11/27/2022 [facility] DATE CREATED AUTHOR AUTHOR'S ORGANIZ ATION 09/03/2023 [facility] DATE CREATED AUTHOR AUTHOR'S ORGANIZ ATION 10/01/2023 [facility] DATE CREATED AUTHOR AUTHOR'S ORGANIZ ATION 11/27/2023 [facility] DATE CREATED AUTHOR AUTHOR'S ORGANIZ ATION 04/05/2024 [facility] FOR RECORDS PERTAINING TO PATIENTS WHO [...] BE BASED ON THE PRIMARY CLINICAL RECORDS. [employer] provides no warranty or guarantee of the accuracy or completeness of information in this document.
[2024-04-10 10:27] VITALS: BP 154/67; PULSE 55; O2SAT 97
[2024-04-10 10:29] VITALS: BP 161/72; PULSE 55; O2SAT 95
[2024-04-10] MEDS: BUPIVACAINE HCL 0.25% PF 25 MG/10 ML VIAL INJ (10:29)
[2024-04-10] MEDS: LIDOCAINE HCL 2% 400 MG/20 ML MDV INJ (10:29)
[2024-04-10] MEDS: TRIAMCINOLONE ACETONIDE 40 MG/ML VIAL 80 MG INJ (10:29)
[2024-04-10] MEDS: IOHEXOL 240 MG/ML - 10 ML VIAL INJ (10:29)
[2024-04-10] MEDS: 0.9 % SODIUM CHLORIDE 10 ML SYRINGE - SALINE FLUSH INJ (10:29)
--- NOTE | 2024-04-10 10:32 | W.PM.PROCNOT ---
Date of procedure: 04/10/24 Pre-op diagnosis: Pain due to lumbar stenosis with neurogenic claudication Post-op diagnosis: same as pre-op Procedure: Procedure: Bilateral L5-S1 transforaminal epidural steroid injection Medications: Bupivacaine 0.25% 2cc, lidocaine 2% 1cc, kenalog 80mg The patient was seen and examined in the preoperative holding area.? Informed consent was obtained and placed on the chart.? Patient was brought to the medical procedure unit and placed in the prone position where a timeout was completed verifying the correct patient, procedure site, position, and planned special equipment using sterile aseptic technique.? Under direct fluoroscopic visualization a 25-gauge Quincke tipped spinal needle was advanced at level left L5-S1 to the designated neural foramen where contrast dye was injected to show adequate spread.? There was no evidence of vascular or adverse uptake.? Epidural spread was appreciated.? The above-mentioned injectate was then placed in a 1.5 mL aliquot preceded by negative aspiration.? The needle was removed. The same procedure, at the same level, was completed on the opposite side. ? Patient was taken to the postprocedural recovery area and monitored for an appropriate length of time before found suitable for discharge in the accompaniment of a responsible adult. Surgeon: Tamiko Landa Pathology: none sent Condition: stable Disposition: no change
== END 2024-04-10 10:38 | disposition home or self-care (01) ==
LOC: SURGOUT 09:32
PROVIDERS: PCP Family Medicine; Visit Provider Anesthesiology
DX: M48.062 Spinal stenosis, lumbar region with neurogenic claudication (principal)
CPT/HCPCS: 64483; J0665; J3301; Q9966

== ENCOUNTER 2024-04-19 08:47 | Outpatient (OUT) | payer MEDICARE, SELFPAY ==
--- NOTE | 2024-04-19 08:56 | P.CN_ITS ---
Consult Note: HPI Data of Consult Patient: known to practice within the last 3 years Consult date: 07/26/23 Requesting Physician: Erin Shelton NP Primary Care Provider: Deandre Staley MD Consult Narrative Reason for consult: chronic neck and right shoulder pain, LBP Narrative: 73yom who presents today for evaluation and management of chronic neck and right shoulder pain, as well as low back and bilateral leg pain. Patient reports 50% improvement from prior right C4-5 C5-6 RFA. Patient continues to have right upper back and shoulder pain, as well as low back pain. Recent right shoulder Xray consistent with OA of AC joint. Pain today 5/10 increasing with activity standing walking stairs bending twisting lifting. Pain decreased with forward flexion, heat, and lying. Patient finds mild to moderate relief from current medication regimen without side effects. Patient had to stop tizanidine due to extreme drowsiness but finds benefit to robaxin 500-1000mg BID PRN. Previously evaluated by NS for lumbar spine who correlates pts lumbar back pain and bilateral leg pain to lumbar stenosis with NC. Recently underwent bilateral L4-5 TFESI and bilateral L5-S1 TFESI with 80% improvement ongoing. cc:: CC: Erin Shelton NP Review of Systems ROS Status of ROS 10 or more systems reviewed and unremark able except as noted in history and below Musculoskeletal Reports: back pain, neck pain and joint pain PFSH PFSH Medical History COPD (chronic obstructive pulmonary disease) ?J44.9 - Chronic obstructive pulmonary disease, unspecified (ICD-10) Arthritis ?M19.90 - Unspecified osteoarthritis, unspecified site (ICD-10) Anemia ?D64.9 - Anemia, unspecified (ICD-10) Bladder cancer ?C67.9 - Malignant neoplasm of bladder, unspecified (ICD-10) 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 - Other specified disorders of bladder (ICD-10) Neck pain ?M54.2 - Cervicalgia (ICD-10) Low back pain ?M54.50 - Low back pain, unspecified (ICD-10) Osteoarthritis ?M19.90 - Unspecified osteoarthritis, unspecified site (ICD-10) Acid reflux ?K21.9 - Gastro-esophageal reflux disease without esophagitis (ICD-10) Hearing deficit ?H91.90 - Unspecified hearing loss, unspecified ear (ICD-10) Prostate cancer ?C61 - Malignant neoplasm of prostate (ICD-10) Former smoker ?Z87.891 - Personal history of nicotine dependence (ICD-10) Hypertension ?I10 - Essential (primary) hypertension (ICD-10) Surgical History History of colonoscopy ?Z98.890 - Other specified postprocedural states (ICD-10) History of arthroscopy of knee ?Z98.890 - Other specified postprocedural states (ICD-10) History of foot surgery ?Z98.890 - Other specified postprocedural states (ICD-10) History of appendectomy ?Z90.49 - Acquired absence of other specified parts of digestive tract (ICD- 10) History of hernia repair ?Z98.890 - Other specified postprocedural states (ICD-10) ?Z87.19 - Personal history of other diseases of the digestive system (ICD-10) S/P cystoscopy ?Z98.890 - Other specified postprocedural states (ICD-10) H/O transurethral resection of bladder tumor (TURBT) ?Z98.890 - Other specified postprocedural states (ICD-10) ?Z86.03 - Personal history of neoplasm of uncertain behavior (ICD-10) H/O transurethral resection of bladder tumor (TURBT) ?Z98.890 - Other specified postprocedural states (ICD-10) ?Z86.03 - Personal history of neoplasm of uncertain behavior (ICD-10) S/P cervical spinal fusion ?Z98.1 - Arthrodesis status (ICD-10) H/O prostatectomy ?Z90.79 - Acquired absence of other genital organ(s) (ICD-10) History of ankle surgery ?Z98.890 - Other specified postprocedural states (ICD-10) H/O shoulder surgery ?Z98.890 - Other specified postprocedural states (ICD-10) Family History Other Depression Family history of diabetes mellitus Family history of hypertension Social History Within the past year, how often did you have a drink containing alcohol: 2-4 times a month Smoking status: Former smoker Non-prescribed substance use: denies use Previous occupational history: retired Highest level of school completed/degree received: Associate degree: occupational, technical, vocational program Meds Home Medications and Allergies Home Medications ?Medication ?Instructions ?Recorded ?Confirmed ?Type diclofenac sodium 75 mg 75 mg PO BID 11/20/22 04/10/24 History tablet,delayed release fluticasone fur. 100 mcg-umeclid 1 inh inhalation DAILY 11/20/22 04/10/24 History 62.5 mcg-vilant 25 mcg inhalat.powder (Trelegy Ellipta) pantoprazole 40 mg tablet,delayed 40 mg PO DAILY 11/20/22 04/10/24 History release methocarbamol 500 mg tablet mg PO QDAY 04/21/23 History hydrocodone 5 mg-acetaminophen 325 1 tab PO DAILY PRN pain #30 tabs 02/17/24 04/10/24 Rx mg tablet metoprolol tartrate 50 mg tablet mg 04/10/24 History Allergies Allergy/AdvReac Type Severity Reaction Status Date / Time codeine Allergy Unknown Hives Verified 04/10/24 09:57 acetaminophen (From Percocet) AdvReac ineffective Verified 04/10/24 09:57 oxycodone (From Percocet) AdvReac ineffective Verified 04/10/24 09:57 Exam Constitutional Documenting provider has reviewed patient's vital signs: yes Common normals: no apparent distress, oriented x3, healthy appearing, alert and well nourished General appearance: cooperative Orientation/consciousness: Yes awake, Yes oriented to person, Yes oriented to place and Yes oriented to time [facility] Common normals: normocephalic, hearing grossly normal bilaterally and moist oral mucous membranes Head and scalp: normocephalic Eye Common normals: PERRL Pupil: PERRL Neck & C-Spine Common normals: full ROM General: normal visual inspection Cervical spine: pain with cervical ROM, cervical spine tenderness and paracervical muscle tenderness Other: no arm drift muscle strength bilat UE 5/5 with intact sensation axial pain with ROM Chest Common normals: inspection of chest normal Respiratory Common normals: normal respiratory effort, no retractions and no use of accessory muscles Effort & inspection: able to speak in complete sentences and symmetric chest movement Back & Pelvis Lumbar spine/lower back: ROM limited, pain with ROM and straight leg raise negative bilaterally Sacroiliac joints: SI joint(s) abnormal Other: positive facet loading strength 5/5 in BLE sensation intact BLE left sij positive ai(patricks), gaenslens, thigh thrust, compression test Extremity Common normals: normal to inspection, full ROM and normal capillary refill Right upper extremity: shoulder joint Other: pain over right AC joint, pain increased with crossbody adduction, positive empty cans and lift off Neuro Common normals: oriented x3, CN's II-XII intact bilaterally, moves all extremities, no focal motor deficits, no sensory deficits noted and deep tendon reflexes 2+ bilaterally Sensorium/orientation: alert Motor exam: strength 5/5 throughout and no movement abnormalities noted Psych Common normals: mental status grossly normal, thought process normal, cooperative, affect normal, speech normal and activity/motor behavior normal Speech: normal speech Thought process: normal thought process Results Additional Findings Additional findings: If on a controlled substance or opioids, I have checked an [place] report on this patient and there are no aberrancies noted in the prescribing history.??If on a controlled substance or opioid a drug screen was completed and reviewed within the last year, and if there has not been a drug screen completed we ordered one today to monitor higher risk, state monitored pain medication use. As part of providing excellent, safe, comprehensive care, the following was completed at our patient's visit: 1. A medication reconciliation and review to ensure accurate knowledge of current/active medications, including asking our patients to inform us about any [id number] medications or herbal remedies/nutritional supplements/alternative remedies. 2. A review to specifically ensure our patients have had annual screening for screening for depression, screening for tobacco use, and screening for unhealthy alcohol use. For concerning screenings had a discussion with the patient, provided patient education, and recommended follow-up with primary care provider when appropriate. If patient noted with a risk of falling, they received education on strength, gait, and balance training to prevent future risk of falling. Assessment and Plan Assessment and Plan (1) Lumbar stenosis with neurogenic claudication: Assessment and Plan: Prior lumbar MRI shows moderate central canal stenosis at L3-4 and L4-5, moderate to severe foraminal narrowing at L4-5 L5-S1 (2) Sacroiliitis: (3) Osteoarthritis of right shoulder: Assessment and Plan: defer right shoulder injection at this time, pain well controlled. can call to schedule (4) Myofascial pain: (5) Cervical spondylosis: (6) Chronic prescription opiate use: Assessment and Plan: I feel these medications are improving the patient's quality of life and allow them to tolerate activities of daily living as well as participate in recreational activity.? The patient does not report intolerable side effects. The patient is NOT opioid naive and non-pharmacologic and non-opioid treatment has failed to significantly relieve the patient's pain and improve functionality. The patient has a diagnosis that is related to a somatic or visceral pain etiology. ? ?? I reviewed with the patient the potential risks and side effects with the use of? opioid medications including but not limited to respiratory depression,? sedation, and even . I verified the patient has access to naloxone should? these effects occur. I advised the patient to avoid the use of any other? sedation substances including alcohol, THC, and benzodiazepines while? taking opioid medications due to the risk of compounding side effects and? detrimental outcomes. I reviewed the [employer], pain treatment agreement, urine? drug screen, and opioid start talking forms. The patient was advised to let? their family know they had Naloxone in case they would need to administer? the medication.? ?? A drug screen was completed within the last year, and no aberrancies were noted regarding their use of controlled substances. The patient understands they are subject to the terms and conditions of the pain contract that they have signed. ? ?? I have checked an [place] report on this patient today and there are no aberrancies noted in the prescribing history.? (7) Muscle spasm: (8) Cervical postlaminectomy syndrome: (9) Lumbar spondylosis: Plan left SIJ injection under fluoroscopy for sacroilitis if pt calls to schedule consider L4-5 vertiflex in the future stop robaxin restart tizanidine 4mg HS PRN continue diclofenac 75mg BID PRN mild to moderate pain continue norco 5/325mg daily PRN moderate to severe pain f/u 2 weeks after injection, or 3 months for medications
--- OUTSIDE RECORDS SUMMARY | 2024-04-19 09:06 | XMS_ITS | CCD ---
Author Organization [facility] Care Team Providers Care Permit Review Assistant Name Role Phone MD Yolande Monterroso Primary Care Provider [phone] MD Lionel Whitney Attending Provider Yolande Monterroso Primary Care Physician [phone] Leidy Plummer Unavailable Unavailable MD Yolande Monterroso Primary Care Provider [phone] MD Lionel Whitney Attending Provider Zoran Chavez [...] Unavailable WHITNEY ., DR FLOWERS Consulting Unavailable WHITNYE ., DR FLOWERS Admvidya Unavailable WHITNEY ., [...] Unavailable MD Yolande Monterroso Primary Care Provider [phone] MD Zoran Chavez Attending Provider MD Yolande Monterroso Primary Care Provider [phone] LIDA Lowery Attending Provider Yolande Monterroso Primary Care Unavailable Esther Lowery Admitting Unavailable Esther Lowery Attending Unavailable Yolande Monterroso Primary Care Unavailable Esther Lowery Admitting Unavailable Esther Lowery Attending Unavailable Yolande Monterroso Primary Care Unavailable Zoran Chavez Admitting Unavailable Zoran Chavez Attending Unavailable VASU GALEANO Attending Unavailable KELLY ORTIZ Attending Unavailable MD Yolande Monterroso Primary Care Provider [phone] LIDA Lowery Attending Provider Syeda NOBLE, Tamiko Kilgore Attending Unavailable Syeda NOBLE, Tamiko Kilgore Attending Unavailable Lionel WHITNEY Attending Unavailable WHITNEY, Lionel Burgos Attending Unavailable WHITNEY, Lionel R Admitting Unavailable WHITNEY, Lionel R Referring Unavailable WHITNEY, Loinel R Admitting Unavailable WHITNEY, Lionel R Referring Unavailable WHITNEY, Lionel R Attending Unavailable WHITNEY, Lionel R Attending Unavailable Allergies Allergy Classification Reported Allergen(s) Allergy Type Date of Onset Reaction(s) Facility (10 sources) Acetaminophen; 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: [acetaminophen] Drug Allergy 0 Itching, Itching agitated, Itching agitated, [facility] (20 sources) Codeine; 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: [Codeine] Drug Allergy 4 [facility] (11 sources) oxyCODONE; 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: [oxycodone] Drug Allergy 0 Itching, agitated, Itching, agitated, [facility] (16 sources) Acetaminophen / oxyCODONE; 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: [acetaminophen-oxyc odone] Drug Allergy [facility] Comment on above: pt states this does not work for pt, pt is not allergic to vicodin (6 sources) cyclobenzaprine Drug Allergy 4 itching [facility] (6 sources) HYDROcodone Drug Allergy 4 anxiety [facility] (6 sources) tiZANidine Drug Allergy 4 hives [facility] (3 sources) Acetaminophen / HYDROcodone; 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: [...] - [facility] Repository (1 source) cyclobenzaprine Drug Allergy [address] [place] [address] Repository (1 source) HYDROcodone Drug Allergy [address] [place] [address] Repository (1 source) tiZANidine Drug Allergy [address] [place] [address] Repository (1 source) Acetaminophen / oxyCODONE; 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: [Percocet 5/325] Drug Allergy [facility] Repository Medications Current Medications Medication [...] Start: 09-19-2021 take 2 tablets by mo ut twice daily carvedilol 6.25 mg Tab 12.5 [...] 07, 2019 1:00am April 19, 2020 8:04am Mkexkzsrukd-Qyivrhhdc-Iwhtky er (10 sources) Anticholinergic, Corticosteroid, beta2-Adrenergic Agonist Start: 08-07-2019 Pegdyegqjbh-Rkupccezw-Frfmtf er (Trelegy Ellipta) 100-62.5-25 mcg Blister With [...] procedure, # 2 tab(s), Refills(s) 0, Pharmacy: [facility]/pharmacy #[id number], 170, cm, 01/20/23 10:45:00 EDT, Height/Length Dosing, 83.5, kg, 01/20/23 10:45:00 EDT, Weight Dosing Start Date: 01/20/23 Status: Ordered Start: 12-31-2022 take 1 tablet by barry th once daily Cipro 500 mg Tab 500 mg = 1 tab(s), Oral, Daily, Take 1 tablet the day before the procedure and 1 tablet after the procedure, # 6 tab(s), Refills(s) 0, Pharmacy: [facility]/pharmacy #[id number], 170, cm, 09/22/22 12:23:00 EDT, Height/Length Dosing, 78, kg, 02/24/22 10:53:00 EDT, W... Start Date: 12/31/22 Status: Ordered Start: 07-02-2022 take 1 tablet by barry th once daily Cipro 500 mg Tab 500 mg = 1 tab(s), Oral, Daily, Take 1 tablet the day before the procedure and 1 tablet after the procedure, # 6 tab(s), Refills(s) 0, Pharmacy: [facility]/pharmacy #[id number], 170, cm, 02/24/22 10:53:00 [...] procedure, # 2 tab(s), Refills(s) 0, Pharmacy: [facility]/pharmacy #[id number], 170, cm, 11/05/21 11:37:00 EDT, Height/Length Dosing, 78, kg, 05/18/22... Start Date: 11/05/21 Status: Ordered cloNIDine hydrochloride [...] procedure, # 2 cap(s), Refills(s) 0, Pharmacy: [facility]/pharmacy #[id number], 188, cm, 02/10/23 14:22:00 [...] period., # 30 tab(s), Refills(s) 3, Pharmacy: [facility], 170, cm, 10/04/23 10:36:00 EDT, [...] period., # 30 tab(s), Refills(s) 3, Pharmacy: [facility], 170, cm, 02/24/22 10:53:00 EDT, Height/Length Dosing, 78, kg, 02/24/22 10:53:00 EDT, Weight Dosing Start Date: 07/05/22 Status: Ordered Start: 09-19-2021 sildenafil 100 mg Tab 100 mg = 1 tab(s), Oral, Daily, Take 1 pill 30 minutes prior to sexual relations, # 30 tab(s), Refills(s) 3, Pharmacy: [facility], 170, cm, 09/19/21 10:16:00 [...] a surgery d one radical prostectomy at [facility] Cancer of prostate (20 sources) Personal [...] region] Episodic Other aftercare (1 source) Other computer terminal operator (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) drug therapy; 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: [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 THERAPY] Onset: 3 Episodic Other [...] Results Test Name Value Interpretation Reference Range Facility Reminderson 04-13-2024 Reminders Reminders From: Loretta Simons To: EU - Recalls Whitney; Sent: 04/13/2024 11:42:40 EDT Show up: 08/19/2024 11:42:00 EST Subject: Cysto/Needs FISH/cytol Due Date/Time: 09/11/2024 11:42:00 EDT Reminder/Recall Patient is due in October 2024 for 6 month cysto/fish/cytol, bt ck [facility] Reminders Reminders From: Loretta Simons To: EU - Recalls Whitney; Cc: Loretta Simons; Sent: 06/28/2023 10:52:09 EST Show up: 09/20/2023 10:52:00 EDT Subject: Cysto/6 mo Due Date/Time: 10/11/2023 10:52:00 EDT Reminder/Recall Patient is due in October 2023 for 6 month cysto/fish/cytol, PSA (bt ck) Spoke to pt, sched for 10/26/23 at [facility] Patient will be due in Apr 2024 for 6 month cysto/fish/cytol (bt ck) Spoke to pt, sched for 05/09/24 at [facility] Main OR Preoperative Recordo n 12-28-2023 Main OR Preoperative Record Main OR Preoperative Record Holding Area Document Type FTURO Summary Primary Physician: Lionel WHITNEY MD Finalized Date/Time: 12/28/23 15:37:16 Pt. Name: MARY DIAZ/Sex: 1950 Male Med Rec #: [id number] Physician: Lionel WHITNEY MD Financial #: [id number] Pt. Type: O Room/Bed: / Admit/Disch: 04/27/23 10:06:44 - 04/27/23 23:59:59 Institution: Case Times Holding FTURO Pre-Care Text: [...] Complaints of Pain: No Skin Integrity Intact, [place], Warm, & Dry Vitals - EU Blood Pressure 167/96 Pulse 76 bpm Respirations 20 br/min SPO2 97 % Last Modified By: PAULINA Rene RN, Ruthann 12/28/23 15:37:14 General Comments: Temp 36.7 Finalized By: PAULINA Rene RN, Ruthann Document Signatures Signed By: Avani Costello LPN 04/27/23 10:26 PAULINA Rene RN, Ruthann 12/28/23 15:37 Normal [facility] Patient Educationon 11-26-19 Patient Education Urology Varicocelectomy [...] including vitamins, herbs, eye drops, creams, and wsnf-vpf-rpjqash medicines. ? Any problems you or family [...] tells you to take them. ? Taking crln-gdq-oiybhun medicines, vitamins, herbs, and supplements. General instructions [...] health c (more content not included)... Normal [facility] UroVysion Fish and Urine Cyt o ([facility])on 11-02-2023 UVFISH & UC Diagnosis Info Invalid Interpretation Code [facility] Comment on above: Result Comment: [...] on: 11/02/2023 10:22:27 Performed By: #### 1 [id number] ####[facility] [address] [place] [address] Consent for Procedure/Surger yon 10-26-2023 Consent for Procedure/Surgery [id number]# 1.00TIFF Normal [facility] Consent for Treatmenton Consent for Treatment [id number]#1 .00TIFF Normal [facility] IntraOperative Documentson 0 10-26-2023 IntraOperative Documents [id number]# 1.00TIFF Normal [facility] Main OR Intraoperative Recor don 10-26-2023 Main OR Intraoperative Record IntraOp Document Type FTURO Summary Primary Physician: Lionel WHITNEY MD Finalized Date/Time: 10/26/23 11:57:52 Pt. Name: MARY DIAZ/Sex: 1950 Male Med Rec #: [id number] Physician: Lionel WHITNEY MD Financial #: [id number] Pt. Type: O Room/Bed: / Admit/Disch: 10/26/23 09:34:20 - Institution: Case Times FTURO Entry 1 Patient Times In Room 10/26/23 11:49:00 Out Room 10/26/23 11:57:00 Procedure Times Start 10/26/23 11:51:00 Stop 10/26/23 11:55:00 Anesthesia Times Last Modified By: Fabiana Galaviz 10/26/23 11:57:45 Case Attendance FTURO Entry 1 Entry 2 Entry 3 Case Attendee Lionel WHITNEY MD, Kelsie E McClain OUTSIDE SOLAR SALES CONSULTANT, Nanci A Role Performed Surgeon - Primary Gate Technician - Primary Scrub - Primary Time [...] Prep Agents Betadine Solution Skin. Condition Intact, [place], Warm, and Description REDDED DOTS ON Dry, [...] 10/26/23 11:57 Fabiana Galaviz 10/26/23 11:57 Normal [facility] Main OR Preoperative Recordo n 10-26-2023 Main OR Preoperative Record Holding Area Document Type FTURO Summary Primary Physician: Lionel WHITNEY MD Finalized Date/Time: 10/26/23 11:16:48 Pt. Name: MARY DIAZ/Sex: 1950 Male Med Rec #: [id number] Physician: Lionel WHITNEY MD Financial #: [id number] Pt. Type: O Room/Bed: / Admit/Disch: 10/26/23 [...] 11:11 Nanci Cortes RN 10/26/23 11:16 Normal [facility] Operative Reporton Operative Report Patient: MARY DIAZ Age: 73 years Sex: Male : 1950 Associated Diagnoses: None Author: Lionel WHITNEY MD Procedure Operative Information Details: Date/ Time: 10/26/2023 11:57:00. 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 Post-Op Dx: Same. Anesthesia Type: Local. Procedure: Local Cystoscopy. Complications: None. Risks/Benefits/Inform ed Consent: Surgical risks, benefits, details of the [...] with antibiotic coverage, Follow up arranged. Normal [facility] Comment on above: Result Comment: Elec tronically Signed By: DEVONTE NOBLE, Lionel Gama.br\Date and Time Signed: 10/26/23 11:58 EDT Outpatient Surgery Discharge Instructionon 10-26-2023 Outpatient Surgery Discharge Instruction [id number]# 1.00TIFF Normal [facility] UroVysion Fish and Urine Cyt o ([facility])on 10-26-2023 [facility] Method of Extraction Voided Normal [facility] Comment on above: Performed By: #### 1 [id number] ####[facility] [address] [place] [id number] [facility] Number of Jars 1 Invalid Interpretation Code [facility] Comment on above: Performed By: #### 1 [id number] ####[facility] [address] [place] [address] [facility] Specimen Urine Normal [facility] Comment on above: Performed By: #### 1 [id number] ####[facility] [address] [place] [address] [facility] Type of Service Technical Only Normal [facility] Comment on above: Performed By: #### 1 [id number] ####[facility] [address] [place] [address] Ambulatory Visit Summaryon 0 10-04-2023 Ambulatory Visit [...] (diclofenac sodium 75 mg Oral EC Tab) fluticasone/umeclidin ium/vilanterol (Trelegy Ellipta 100 mcg-62.5 mcg-25 mcg inhalation [...] to do next Scheduled Follow-Up Appointments Wednesday 12:00 PM EDT With: Where: [facility] Wednesday 10:00 AM EDT With: Where: [facility] Wednesday 10:15 AM EDT With: DEVONTE NOBLE, Lionel Burgos Where: [facility] Mel[place] Normal [facility] Patient Educationon 10-04-19 24 Patient Education [...] if anything looks unusual. Men with a rpdnny-zrhd-usgzcd risk for skin cancer may want to see a product info specialist (back tacker) for an annual body check. What are the benefits of screening? Cancer screening is done to look for cancer in the very early stages, before it spreads and becomes harder to treat and before you would start to notice symptoms. Finding cancer early improves the chances of successful treatment. It ma (more content not included)... Normal [facility] Urology Office/Clinic Noteon 10-04-2023 Urology Office/Clinic [...] [facility] [address], [place] [address] [phone] Additional Instructions: 1 yr w/ PSA Patient Education Cancer Screening for Men Lilo Viera, personally scribed for Dr. Whitney on 10/04/2023 11:08:56. . Documentation recorded by the scribeLilo, accurately reflects the services(s) I performed and [...] inhalation po (more content not included)... Normal [facility] Comment on above: Result Comment: Elec tronically Signed By: Lionel WHITNEY MD\.br\Date and Time Signed: 10/04/23 11:16 EDT\.br\Electronically Co-Signed By: Lilo Zhou\.tacos\Date and Time Co-Signed: 10/04/23 11:14 EDT Lab Reportson 09-22-2023 Lab Reports [id number]#1 .00TIFF Normal [facility] MR cervical spine wo/w conon 08-29-2023 MR cervical spine wo/w con [facility] [place] [address] MRI Report Signed Patient: Mary Diaz MR#: [id number] : 1950 Acct:[id number] Age/Sex: 73 / M ADM Date: 08/28/23 Loc: MR Room: Type: [facility] Attending Dr: Esther HILTON Copies to: LIDA [...] Lupe Campos M.D.08/29/2023 1:06 PM Dictation Location: [place] [address] Transcribed By: [facility] 08/29/23 1306 Dictated By: Lupe Campos MD 08/29/23 1254 Signed By: 08/29/23 1306 [facility] Creatinine (Bld) [Mass/Vol]O rdered By: Esther Lowery on 08-28-2023 Creatinine [Mass/Vol] 1.2 mg/dL 0.6-1.3 [facility] Comment on above: ER/ESD physician is notified/shown all ISTAT results.Critical values may be confirmed by laboratory testing ifdeemed necessary by ER attending doctor. ISTAT XRay CREon 08-28-2023 Creatinine [Mass/Vol] 1.2 mg/dL Normal 0.6-1.3 [facility] Comment on above: Result Comment: ER/E SD physician is notified/shown all ISTAT results. Critical values may be confirmed by laboratory testing if deemed necessary by ER attending doctor. Performed By: #### I SCRE #### [facility] [address] [place] [address] ISTAT GFR > 60.0 [facility] Comment on above: Result Comment: PERF ORMED BY: [place] [address] PATHOLOGIST [employer]ACLE FINANCIAL APPLICATION DEVELOPER JENARO FLOREZ M.D. Performed By: #### I SCRE #### [facility] [address] [place] [address] No Panel InformationOrdered By: Esther Lowery on 08-28-2023 Bedside Estimated GFR (eGFR) > 60.0 [facility] XR cervical spine LAT/FLX/EX Ton 08-12-2023 XR cervical spine LAT/FLX/EXT [facility] Main [place] [id number] XRay Report Signed Patient: Mary Diaz MR#: [id number] : 1950 Acct:[id number] Age/Sex: 73 / M ADM Date: 08/12/23 Loc: XD Room: Type: REG CLI Attending Dr: Esther Lowery OUTSIDE PRODUCTION INSPECTOR-C Copies to: LIDA Flynn Ordering Provider: LIDA [...] Kenny Leahy M.D.08/12/2023 3:29 PM Dictation Location: [place] [address] Transcribed By: [facility] 08/12/23 1529 Dictated By: Kenny Leahy DO 08/12/23 1528 Signed By: 08/12/23 1529 [facility] XR lumbar spine 6V w bending on 08-12-2023 XR lumbar spine 6V w bending [facility] Main [address] [address] XRay Report Signed Patient: Mary Diaz MR#: [id number] : 1950 Acct:[id number] Age/Sex: 73 / M ADM Date: 08/12/23 Loc: XD Room: Type: [facility] CLI Attending Dr: Esther Lowery OUTSIDE PRODUCTION INSPECTOR-C Copies to: LIDA Flynn Ordering Provider: LIDA [...] S1 degenerative change. SOFT TISSUES: Atherosclerosis. BONY MINERALIZATION:[place] te XR/XR lumbar spine 6V w bending IMPRESSION: No hypermobility. Extensive lower lumbar degenerative changes redemonstrated. Impression dictated by: Kenny Leahy M.D.08/12/2023 3:28 PM Dictation Location: [place] [address] Transcribed By: [facility] 08/12/23 1528 Dictated By: Kenny Leahy DO 08/12/23 1526 Signed By: 08/12/23 1528 [facility] UroVysion Fish and Urine Cyt o ([facility])on 05-26-2023 UVFISH & UC Revision Information Invalid Interpretation Code [facility] Comment on above: Result Comment: Jimbo ection Reason -[ To Nur, 05/26/23 - 14:52 ] Corrected report issued to include PMS/PWS. The diagnosis remains unchanged. Correction Notes - Performed By: #### 1 [id number] ####[facility] [address] [place] [address] Consent for Procedure/Surger yon 04-27-2023 Consent for Procedure/Surgery [id number]#1 .00TIFF Normal [facility] Consent for Treatmenton Consent for Treatment [id number]#1 .00TIFF [facility] IntraOperative Documentson 1 06-27-2022 IntraOperative Documents [id number] .00TIFF [facility] Main OR Intraoperative Recor don 04-27-2023 Main OR Intraoperative Record IntraOp Document Type FTURO Summary Primary Physician: Lionel WHITNEY MD Finalized Date/Time: 04/27/23 11:02:57 Pt. Name: EMILY MARY Verma/Sex: 1950 Male Med Rec #: [id number] Physician: Lionel WHITNEY MD Financial #: [id number] Pt. Type: O Room/Bed: / Admit/Disch: 04/27/23 10:06:44 - Institution: Case Times FTURO Entry 1 Patient Times In Room 04/27/23 10:52:00 Out Room 04/27/23 11:05:00 Procedure Times Start 04/27/23 10:56:00 Stop 04/27/23 11:00:00 Anesthesia Times Last Modified By: Edgard ZELAYA, Cheryl GALLARDO 04/27/23 11:00:10 Case Attendance FTURO Entry 1 Entry 2 Entry 3 Case Attendee Lionel WHITNEY MD RN, EDITHOR, Safia GROSS, Nanci Luna Role Performed Surgeon - Primary Gate Technician - Primary Scrub - Primary Time In 04/27/23 10:52:00 04/27/23 10:52:00 04/27/23 10:52:00 Time Out 04/27/23 11:05:00 04/27/23 11:05:00 04/27/23 11:05:00 Procedure CYSTOSCOPY LOCAL(.) CYSTOSCOPY LOCAL(.) CYSTOSCOPY LOCAL(.) Comments Last Modified By: Edgard ZELAYA, EDITHOR, Edgard RN, EDITHOR, Edgard ZELAYA, EDITHOR, Cheryl 04/27/23 Cheryl [...] By: PAULINA Rene RN, Ruthann 04/27/23 11:02 [facility] Operative Reporton 3 Operative Report Patient: MARY DIAZ Age: 73 years Sex: Male : 1950 Associated Diagnoses: None Author: Lionel WHITNEY MD Procedure Operative Information Details: Date/ Time: 04/27/2023 11:02:00. 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 Post-Op Dx: Same. Anesthesia Type: Local. Procedure: Local Cystoscopy. Complications: None. Risks/Benefits/Inform ed Consent: Surgical risks, benefits, details of the [...] a surveillance cystoscopy in 6 months.. Normal [facility] Comment on above: Result Comment: Elec tronically Signed By: Lionel WHITNEY MD\.br\Date and Time Signed: 04/27/23 11:04 EST Outpatient Surgery Discharge Instructionon 04-27-2023 Outpatient Surgery Discharge Instruction [id number]#1 .00TIFF [facility] UroVysion Fish and Urine Cyt o ([facility])on 04-27-2023 [facility] Method of Extraction Voided [facility] Comment on above: Performed By: #### 1 [id number] ####[facility] [address] [place] [address] [facility] Number of Jars 1 Invalid Interpretation Code [facility] Comment on above: Performed By: #### 1 [id number] ####[facility] [address] [place] [address] [facility] Specimen Urine Normal [facility] Comment on above: Performed By: #### 1 [id number] ####[facility] [address] [place] [address] [facility] Type of Service Technical Only Normal [facility] Comment on above: Performed By: #### 1 [id number] ####[facility] [address] [place] [address] MR lumbar spine wo conon MR lumbar spine wo con [facility] [place] [address] MRI Report Signed Patient: Mary Diaz MR#: [id number] : 1950 Acct:[id number] Age/Sex: 72 / M ADM Date: 01/01/23 Loc: MR Room: Type: [facility] Attending Dr: Zoran Chavez MD Copies to: [...] Jamaica Alas M.D.01/01/2023 2:48 PM Dictation Location: [place] [address] Transcribed By: [facility] 01/01/23 144 Dictated By: Jamaica Alas II, MD 01/01/23 144 Signed By: 01/01/23 1448 [facility] XR CSPINE MIN 4 VIEWSon 05-0 XR [...] B (Bld) [Mass/Vol] 844.0 pg/mL Normal <=900.0 [facility] Comment on above: Performed By: #### C VDTB #### [facility] [address] [place] [address] Dr. Johnna Dixon CBC AUTO DIFFon 10-06-2022 BASO # 0.0 103/ul Normal 0.0-0.1 [facility] Comment on above: Performed By: #### C BC #### [facility] [address] [place] [address] Dr. Johnna Dixon Basophils/100 WBC (Bld) 0.0 % Critically low 0.2-2.0 [facility] Comment on above: Performed By: #### C BC #### [facility] [address] [place] [address] Dr. Johnna Dixon EO # 0.0 103/ul Normal 0.0-0.7 [facility] Comment on above: Performed By: #### C BC #### [facility] [address] [place] [address] Dr. Johnna Dixon Eosinophils/100 WBC (Bld) 0.0 % Critically low 0.9-7.0 [facility] Comment on above: Performed By: #### C BC #### [facility] [address] [place] [address] Dr. Johnna Dixon Erythrocyte distribution width (RBC) [Ratio] 13.9 % Normal 11.0-15.0 [facility] Comment on above: Performed By: #### C BC #### [facility] [address] [place] [address] Dr. Johnna Dixon Hematocrit (Bld) [Volume fraction] 33.6 % Critically low 42.0-54.0 [facility] Comment on above: Performed By: #### C BC #### [facility] [address] [place] [address] Dr. Johnna Dixon Hemoglobin (Bld) [Mass/Vol] 11.1 g/dL Critically low 14.0-18.0 [facility] Comment on above: Performed By: #### C BC #### [facility] [address] [place] [address] Dr. Johnna Dixon IG # 0.03 10e3/ul Normal 0.00-0.03 [facility] Comment on above: Performed By: #### C BC #### [facility] [address] [place] [address] Dr. Johnna Dixon IG % 0.5 % Normal 0.0-0.5 [facility] Comment on above: Performed By: #### C BC #### [facility] [address] [place] [address] Dr. Johnna Dixon LYMPH # 0.7 103/ul Critically low 1.2-3.8 [facility] Comment on above: Performed By: #### C BC #### [facility] [address] [place] [address] Dr. Johnna Dixon Lymphocytes/100 WBC (Bld) 11.5 % Critically low 20.5-60.0 [facility] Comment on above: Performed By: #### C BC #### [facility] [address] [place] [address] Dr. Johnna Dixon MANUAL DIFF REQ NO Normal [facility] Comment on above: Performed By: #### C BC #### [facility] Laboratory [address] [place] [address] Dr. Johnna Dixon MCH (RBC) [Entitic mass] 31.0 pg Normal 25.9-34.0 [facility] Comment on above: Performed By: #### C BC #### [facility] Laboratory [address] [place] [address] Dr. Johnna Dixon MCHC (RBC) [Mass/Vol] 33.0 g/dL Normal 29.9-35.2 [facility] Comment on above: Performed By: #### C BC #### [facility] Laboratory [address] [place] [address] Dr. Johnna Dixon MCV (RBC) [Entitic vol] 93.9 fL Normal 80.0-94.0 [facility] Comment on above: Performed By: #### C BC #### [facility] Laboratory [address] [place] [address] Dr. Johnna Dixon MONO # 0.3 103/ul Normal 0.3-0.8 [facility] Comment on above: Performed By: #### C BC #### [facility] Laboratory [address] [place] [address] Dr. Johnna Dixon Monocytes/100 WBC (Bld) 4.5 % Normal 1.7-12.0 [facility] Comment on above: Performed By: #### C BC #### [facility] Laboratory [address] [place] [address] Dr. Johnna Dixon NEUT # 5.0 103/ul Normal 1.4-6.5 [facility] Comment on above: Performed By: #### C BC #### [facility] Laboratory [address] [place] [address] Dr. Johnna Dixon Neutrophils/100 WBC (Bld) 83.5 % Critically high 43.0-75.0 [facility] Comment on above: Performed By: #### C BC #### [facility] Laboratory [address] [place] [address] Dr. Johnna Dixon Platelet mean volume (Bld) [Entitic vol] 10.3 fL Normal 9.5-13.5 [facility] Comment on above: Performed By: #### C BC #### [facility] Laboratory [address] [place] [address] Dr. Johnna Dixon PLT 184 103/ul Normal 150-450 [facility] Comment on above: Performed By: #### C BC #### [facility] Laboratory [address] [place] [address] Dr. Johnna Dixon RBC 3.58 106/ul Critically low 4.70-6.10 [facility] Comment on above: Performed By: #### C BC #### [facility] Laboratory [address] [place] [address] Dr. Johnna Dixon WBC 6.0 103/ul Normal 4.0-11.0 [facility] Comment on above: Performed By: #### C BC #### [facility] Laboratory [address] [place] [address] Dr. Johnna Dixon PROF 14(COMP METB)on 023 Albumin [Mass/Vol] 2.7 g/dL Critically low 3.4-5.0 [facility] Comment on above: Performed By: #### C VDTBH #### [facility] Laboratory [address] [place] [address] Dr. Johnna Dixon Albumin/Globulin [Mass ratio] 0.9 {ratio} Normal [facility] Comment on above: Performed By: #### C VDTBH #### [facility] Laboratory [address] [place] [address] Dr. Johnna Dixon ALP [Catalytic activity/Vol] 32 U/L Critically low 46-116 [facility] Comment on above: Performed By: #### C VDTBH #### [facility] Laboratory [address] [place] [address] Dr. Johnna Dixon ALT [Catalytic activity/Vol] 19 U/L Normal 16-63 [facility] Comment on above: Performed By: #### C VDTBH #### [facility] Laboratory [address] [place] [address] Dr. Johnna Dixon Anion gap [Moles/Vol] 14.0 mmol/L Normal [facility] Comment on above: Performed By: #### C VDTBH #### [facility] Laboratory [address] [place] [address] Dr. Johnna Dixon AST [Catalytic activity/Vol] 12 U/L Critically low 15-37 [facility] Comment on above: Performed By: #### C VDTBH #### [facility] Laboratory [address] [place] [address] Dr. Johnna Dixon Bilirubin [Mass/Vol] 0.6 mg/dL Normal 0.2-1.0 [facility] Comment on above: Performed By: #### C VDTBH #### [facility] Laboratory [address] [place] [address] Dr. Johnna Dixon Calcium [Mass/Vol] 8.3 mg/dL Critically low 8.5-10.1 [facility] Comment on above: Performed By: #### C VDTBH #### [facility] Laboratory [address] [place] [address] Dr. Johnna Dixon Chloride [Moles/Vol] 107 mmol/L Normal 98-107 [facility] Comment on above: Performed By: #### C VDTBH #### [facility] Laboratory [address] [place] [address] Dr. Johnna Dixon CO2 [Moles/Vol] 24.9 mmol/L Normal 21.0-32.[address] [facility] Comment on above: Performed By: #### C VDTBH #### [facility] Laboratory [address] [place] [address] Dr. Johnna Dixon Creatinine [Mass/Vol] 1.20 mg/dL Normal 0.70-1.30 [facility] Comment on above: Performed By: #### C VDTBH #### [facility] Laboratory [address] [place] [address] Dr. Johnna Dixon EGFR-AF INDONESIAN >60 Normal >=[address] [facility] Comment on above: Performed By: #### C VDTBH #### [facility] [address] [place] [address] Dr. Johnna Dixon EGFR-NON AF INDONESIAN 60 mL/min/1.73m2 Normal >=60 [facility] Comment on above: Performed By: #### C VDTBH #### [facility] [address] [place] [address] Dr. Johnna Dixon Globulin (S) [Mass/Vol] 2.9 g/dL Normal [facility] Comment on above: Performed By: #### C VDTBH #### [facility] Laboratory [address] [place] [address] Dr. Johnna Dixon Glucose [Mass/Vol] 153 mg/dL Critically high 74-106 [facility] Comment on above: Performed By: #### C VDTBH #### [facility] Laboratory [address] [place] [address] Dr. Johnna Dixon Potassium [Moles/Vol] 3.9 mmol/L Normal 3.5-5.1 [facility] Comment on above: Performed By: #### C VDTBH #### [facility] Laboratory [address] [place] [address] Dr. Johnna Dixon Protein [Mass/Vol] 5.6 g/dL Critically low 6.4-8.2 [facility] Comment on above: Performed By: #### C VDTBH #### [facility] [address] [place] [address] Dr. Johnna Dixon Sodium [Moles/Vol] 142 mmol/L Normal 136-145 [facility] Comment on above: Performed By: #### C VDTBH #### [facility] [address] [place] [address] Dr. Johnna Dixon Urea nitrogen [Mass/Vol] 14.0 mg/dL Normal 7.0-18.0 [facility] Comment on above: Performed By: #### C VDTBH #### [facility] [address] [place] [address] Dr. Johnna Dixon Urea nitrogen/Creatinine [Mass ratio] 11.7 mg/mg Normal [facility] Comment on above: Performed By: #### C VDTBH #### [facility] Laboratory [address] [place] [address] Dr. Johnna Dixon CBC AUTO DIFFon 10-05-2022 BASO # 0.0 103/ul Normal 0.0-0.1 [facility] Comment on above: Performed By: #### S PUTGS #### [facility] Laboratory [address] [place] [address] Dr. Johnna Dixon Basophils/100 WBC (Bld) 0.2 % Normal 0.2-2.0 [facility] Comment on above: Performed By: #### S PUTGS #### [facility] [address] [place] [address] Dr. Johnna Dixon EO # 0.0 103/ul Normal 0.0-0.7 [facility] Comment on above: Performed By: #### S PUTGS #### [facility] [address] [place] [address] Dr. Johnna Dixon Eosinophils/100 WBC (Bld) 0.2 % Critically low 0.9-7.0 [facility] Comment on above: Performed By: #### S PUTGS #### [facility] [address] [place] [address] Dr. Johnna Dixon Erythrocyte distribution width (RBC) [Ratio] 14.1 % Normal 11.0-15.0 [facility] Comment on above: Performed By: #### S PUTGS #### [facility] [address] [place] [address] Dr. Johnna Dixon Hematocrit (Bld) [Volume fraction] 39.9 % Critically low 42.0-54.0 [facility] Comment on above: Performed By: #### S PUTGS #### [facility] [address] [place] [address] Dr. Johnna Dixon Hemoglobin (Bld) [Mass/Vol] 12.8 g/dL Critically low 14.0-18.0 [facility] Comment on above: Performed By: #### S PUTGS #### [facility] Laboratory [address] [address] [address] Johnna Dixon IG # 0.01 10e3/ul Normal 0.00-0.03 [facility] Comment on above: Performed By: #### S PUTGS #### [facility] [address] [place] [address] Dr. Johnna Dixon IG % 0.2 % Normal 0.0-0.5 [facility] Comment on above: Performed By: #### S PUTGS #### [facility] [address] [place] [address] Dr. Johnna Dixon LYMPH # 0.7 103/ul Critically low 1.2-3.8 [facility] Comment on above: Performed By: #### S PUTGS #### [facility] [address] [place] [address] Dr. Johnna Dixon Lymphocytes/100 WBC (Bld) 14.3 % Critically low 20.5-60.0 [facility] Comment on above: Performed By: #### S PUTGS #### [facility] [address] [place] [address] Dr. Johnna Dixon MANUAL DIFF REQ NO Normal [facility] Comment on above: Performed By: #### S PUTGS #### [facility] [address] [place] [address] Dr. Johnna Dixon MCH (RBC) [Entitic mass] 30.7 pg Normal 25.9-34.0 [facility] Comment on above: Performed By: #### S PUTGS #### [facility] [address] [place] [address] Dr. Johnna Dixon MCHC (RBC) [Mass/Vol] 32.1 g/dL Normal 29.9-35.2 [facility] Comment on above: Performed By: #### S PUTGS #### [facility] [address] [place] [address] Dr. Johnna Dixon MCV (RBC) [Entitic vol] 95.7 fL Critically high 80.0-94.0 [facility] Comment on above: Performed By: #### S PUTGS #### [facility] [address] [address] [address] Johnna Dixon MONO # 0.6 103/ul Normal 0.3-0.8 [facility] Comment on above: Performed By: #### S PUTGS #### [facility] [address] [place] [address] Dr. Johnna Dixon Monocytes/100 WBC (Bld) 12.5 % Critically high 1.7-12.0 [facility] Comment on above: Performed By: #### S PUTGS #### [facility] [address] [place] [address] Dr. Johnna Dixon NEUT # 3.6 103/ul Normal 1.4-6.5 [facility] Comment on above: Performed By: #### S PUTGS #### [facility] [address] [place] [address] Dr. Johnna Dixon Neutrophils/100 WBC (Bld) 72.6 % Normal 43.0-75.0 [facility] Comment on above: Performed By: #### S PUTGS #### [facility] [address] [place] [address] Dr. Johnna Dixon Platelet mean volume (Bld) [Entitic vol] 9.5 fL Normal 9.5-13.5 [facility] Comment on above: Performed By: #### S PUTGS #### [facility] [address] [place] [address] Dr. Johnna Dixon PLT 213 103/ul Normal 150-450 [facility] Comment on above: Performed By: #### S PUTGS #### [facility] [address] [place] [address] Dr. Johnna Dixon RBC 4.17 106/ul Critically low 4.70-6.10 [facility] Comment on above: Performed By: #### S PUTGS #### [facility] [address] [place] [address] Dr. Johnna Dixon WBC 5.0 103/ul Normal 4.0-11.0 [facility] Comment on above: Performed By: #### S PUTGS #### [facility] Laboratory [address] [place] [address] Dr. Johnna Dixon CULTURE BLOODon 10-05-2022 Microscopic examination of blood, culture Culture Observations: NO GROWTH AT 5 DAYS. Normal [facility] Comment on above: Performed By: #### B [id number] #### [facility] Laboratory [address] [place] [address] Dr. Johnna Dixon Microscopic examination of blood, culture Culture Observations: NO GROWTH AT 5 DAYS. Normal [facility] Comment on above: Performed By: #### S PUTGS #### [facility] [address] [address] [address] Johnna Dixon CULTURE SPUTUMon 10-05-2022 CULTURE SPUTUM Culture Observations : NORMAL RESPIRATORY JONATAN. Normal [facility] Comment on above: Performed By: #### S PUTGS #### [facility] [address] [place] [address] Dr. Johnna Dixon Covid-19 PCR (CVDTB)on 09-19 SARS-CoV-2 (COVID-19) RNA REX+probe Ql (Unsp spec) Not detected Normal NOT DETECTED [facility] Comment on above: Result Comment: This test is not yet approved or cleared by the [place] FDA. When there are no FDA-approved or cleared tests available, and other criteria are met, FDA can make tests available under an emergency access mechanism called an Emergency Use Authorization (EUA). The EUA for this test is supported by the [place] of Health and Human Service's (HHS's) declaration [...] [facility] [address] [place] [address] Dr. Johnna Dixon LACTATE/LACTIC ACIDon 2022 Lactate [Moles/Vol] 1.2 mmol/L Normal 0.4-2.0 [facility] Comment on above: Performed By: #### L ACT #### [facility] [address] [address] [address] Johnna Dixon Lactate [Moles/Vol] 2.4 mmol/L Critically high 0.4-2.0 [facility] Comment on above: Performed By: #### L ACT #### [facility] [address] [address] [address] Johnna Dixon PROF CHEM 8 (BAS METB)on Anion gap [Moles/Vol] 12.6 mmol/L Normal [facility] Comment on above: Performed By: #### B MP #### [facility] [address] [place] [address] Dr. Johnna Dixon Calcium [Mass/Vol] 8.9 mg/dL Normal 8.5-10.1 [facility] Comment on above: Performed By: #### B MP #### [facility] [address] [place] [address] Dr. Johnna Dixon Chloride [Moles/Vol] 106 mmol/L Normal 98-107 [facility] Comment on above: Performed By: #### B MP #### [facility] [address] [place] [address] Dr. Johnna Dixon CO2 [Moles/Vol] 25.8 mmol/L Normal 21.0-32.[address] [facility] Comment on above: Performed By: #### B MP #### [facility] [address] [place] [address] Dr. Johnna Dixon Creatinine [Mass/Vol] 1.41 mg/dL Critically high 0.70-1.30 [facility] Comment on above: Performed By: #### B MP #### [facility] [address] [place] [address] Dr. Johnna Dixon EGFR-AF INDONESIAN >60 Normal >=[address] [facility] Comment on above: Performed By: #### B MP #### [facility] [address] [place] [address] Dr. Johnna Dixon EGFR-NON AF INDONESIAN 50 mL/min/1.73m2 Critically low >=60 [facility] Comment on above: Performed By: #### B MP #### [facility] [address] [address] [address] Johnna Dixon Glucose [Mass/Vol] 111 mg/dL Critically high 74-106 [facility] Comment on above: Performed By: #### B MP #### [facility] [address] [address] [address] Johnna Dixon Potassium [Moles/Vol] 3.4 mmol/L Critically low 3.5-5.1 [facility] Comment on above: Performed By: #### B MP #### [facility] [address] [address] [address] Johnna Dixon Sodium [Moles/Vol] 141 mmol/L Normal 136-145 [facility] Comment on above: Performed By: #### B MP #### [facility] [address] [address] [address] Johnna Dixon Urea nitrogen [Mass/Vol] 17.0 mg/dL Normal 7.0-18.0 [facility] Comment on above: Performed By: #### B MP #### [facility] [address] [place] [address] Dr. Johnna Dixon Urea nitrogen/Creatinine [Mass ratio] 12.1 mg/mg Normal [facility] Comment on above: Performed By: #### B MP #### [facility] [address] [address] [address] Johnna Dixon SPUTUM GRAM STAINon 10-06-19 23 COMMENTS Normal [facility] Comment on above: Performed By: #### S PUTGS #### [facility] [address] [place] [address] Dr. Johnna Dixon DIPHTHEROIDS Normal [facility] Comment on above: Performed By: #### S PUTGS #### [facility] [address] [place] [address] Dr. Johnna Dixon EPITHELIALS <25 Normal [facility] Comment on above: Performed By: #### S PUTGS #### [facility] [address] [address] [address] Johnna Dixon FUNGAL ELEMENTS Normal [facility] Comment on above: Performed By: #### S PUTGS #### [facility] [address] [address] [address] Johnna Dixon GRAM NEG BACILLI FEW Normal [facility] Comment on above: Performed By: #### S PUTGS #### [facility] [address] [address] [address] Johnna Dixon GRAM NEG DIPPLOCOCCI Normal [facility] Comment on above: Performed By: #### S PUTGS #### [facility] [address] [place] [address] Dr. Johnna Dixon GRAM POS BACILLI Normal [facility] Comment on above: Performed By: #### S PUTGS #### [facility] [address] [place] [address] Dr. Johnna Dixon GRAM POSITIVE COCCI FEW Normal [facility] Comment on above: Performed By: #### S PUTGS #### [facility] [address] [place] [address] Dr. Johnna Dixon WBC (Bld) [#/Vol] 10*3/uL Normal [facility] Comment on above: Performed By: #### S PUTGS #### [facility] [address] [place] [address] Dr. Johnna Dixon SYMPTOMATIC COVID-19 ANTIGEN on 10-05-2022 EUA Statement SEE BELOW Normal [facility] Comment on above: Result Comment: This [...] [facility] [address] [place] [address] [id number] [address] Johnna Dixon SARS-CoV-2 (COVID-19) RNA REX+probe Ql (Unsp spec) Negative Normal NEGATIVE [facility] Comment on above: Performed By: #### C VDAGS #### [facility] [address] [place], [place] [address] Dr. Johnna Dixon XR CHEST 1 Von [...] [facility] US SINGLE QUAD RT UPPERon US [...] [facility] [address] [address] [address] Johnna Dixon CBC AUTO DIFFon 09-21-2022 BASO # 0.0 103/ul Normal 0.0-0.1 [facility] Comment on above: Performed By: #### C VDTBH #### [facility] [address] [place] [address] Dr. Johnna Dixon Basophils/100 WBC (Bld) 0.5 % Normal 0.2-2.0 [facility] Comment on above: Performed By: #### C VDTBH #### [facility] [address] [place] [address] Dr. Johnna Dixon EO # 0.1 103/ul Normal 0.0-0.7 [facility] Comment on above: Performed By: #### C VDTBH #### [facility] [address] [address] [address] Johnna Dixon Eosinophils/100 WBC (Bld) 1.9 % Normal 0.9-7.0 [facility] Comment on above: Performed By: #### C VDTBH #### [facility] [address] [place] [address] Dr. Johnna Dixon Erythrocyte distribution width (RBC) [Ratio] 14.5 % Normal 11.0-15.0 [facility] Comment on above: Performed By: #### C VDTBH #### [facility] [address] [place] [address] Dr. Johnna Dixon Hematocrit (Bld) [Volume fraction] 39.1 % Critically low 42.0-54.0 [facility] Comment on above: Performed By: #### C VDTBH #### [facility] [address] [place] [address] Dr. Johnna Dixon Hemoglobin (Bld) [Mass/Vol] 12.8 g/dL Critically low 14.0-18.0 [facility] Comment on above: Performed By: #### C VDTBH #### [facility] [address] [place] [address] Dr. Johnna Dixon IG # 0.05 10e3/ul Critically high 0.00-0.03 [facility] Comment on above: Performed By: #### C VDTBH #### [facility] [address] [place] [address] Dr. Johnna Dixon IG % 0.7 % Critically high 0.0-0.5 [facility] Comment on above: Performed By: #### C VDTBH #### [facility] [address] [place] [address] Dr. Johnna Dixon LYMPH # 2.0 103/ul Normal 1.2-3.8 [facility] Comment on above: Performed By: #### C VDTBH #### [facility] [address] [place] [address] Dr. Johnna Dixon Lymphocytes/100 WBC (Bld) 27.4 % Normal 20.5-60.0 [facility] Comment on above: Performed By: #### C VDTBH #### [facility] [address] [place] [address] Dr. Johnna Dixon MANUAL DIFF REQ NO Normal [facility] Comment on above: Performed By: #### C VDTBH #### [facility] [address] [place] [address] Dr. Johnna Dixon MCH (RBC) [Entitic mass] 31.3 pg Normal 25.9-34.0 [facility] Comment on above: Performed By: #### C VDTBH #### [facility] [address] [place] [address] Dr. Johnna Dixon MCHC (RBC) [Mass/Vol] 32.7 g/dL Normal 29.9-35.2 [facility] Comment on above: Performed By: #### C VDTBH #### [facility] - [facility] [address] [place] [address] Dr. Johnna Dixon MCV (RBC) [Entitic vol] 95.6 fL Critically high 80.0-94.0 [facility] Comment on above: Performed By: #### C VDTBH #### [facility] [address] [place] [address] Dr. Johnna Dixon MONO # 0.5 103/ul Normal 0.3-0.8 [facility] Comment on above: Performed By: #### C VDTBH #### [facility] [address] [place] [address] Dr. Johnna Dixon Monocytes/100 WBC (Bld) 6.9 % Normal 1.7-12.0 [facility] Comment on above: Performed By: #### C VDTBH #### [facility] [address] [place] [address] Dr. Johnna Dixon NEUT # 4.7 103/ul Normal 1.4-6.5 [facility] Comment on above: Performed By: #### C VDTBH #### [facility] [address] [place] [address] Dr. Johnna Dixon Neutrophils/100 WBC (Bld) 62.6 % Normal 43.0-75.0 [facility] Comment on above: Performed By: #### C VDTBH #### [facility] [address] [place] [address] Dr. Johnna Dixon Platelet mean volume (Bld) [Entitic vol] 9.3 fL Critically low 9.5-13.5 [facility] Comment on above: Performed By: #### C VDTBH #### [facility] [address] [place] [address] Dr. Johnna Dixon PLT 235 103/ul Normal 150-450 [facility] Comment on above: Performed By: #### C VDTBH #### [facility] [address] [place] [address] Dr. Johnna Dixon RBC 4.09 106/ul Critically low 4.70-6.10 [facility] Comment on above: Performed By: #### C VDTBH #### [facility] [address] [place] [address] Dr. Johnna Dixon WBC 7.4 103/ul Normal 4.0-11.0 [facility] Comment on above: Performed By: #### C VDTBH #### [facility] [address] [place] [address] Dr. Johnna Dixon LIPASEon 09-21-2022 Lipase [Catalytic activity/Vol] 114.0 U/L Normal 73.0-393.0 [facility] Comment on above: Performed By: #### C VDAGS #### [facility] [address] [place] [address] Dr. Johnna Dixon LIVER PROFILEon 09-21-2022 Albumin [Mass/Vol] 3.9 g/dL Normal 3.4-5.0 [facility] Comment on above: Performed By: #### C VDTBH #### [facility] [address] [place] [address] Dr. Johnna Dixon Albumin/Globulin [Mass ratio] 1.6 {ratio} Normal [facility] Comment on above: Performed By: #### C VDTBH #### [facility] [address] [place] [address] Dr. Johnna Dixon ALP [Catalytic activity/Vol] 59 U/L Normal 46-116 [facility] Comment on above: Performed By: #### C VDTBH #### [facility] [address] [place] [address] Dr. Johnna Dixon ALT [Catalytic activity/Vol] 23 U/L Normal 16-63 [facility] Comment on above: Performed By: #### C VDTBH #### [facility] [address] [place] [address] Dr. Johnna Dixon AST [Catalytic activity/Vol] 8 U/L Critically low 15-37 [facility] Comment on above: Performed By: #### C VDTBH #### [facility] [address] [place] [address] Dr. Johnna Dixon BILI, CONJUGATED 0.1 mg/dL Normal 0.0-0.[address] [facility] Comment on above: Performed By: #### C VDTBH #### [facility] [address] [place] [address] Dr. Johnna Dixon Bilirubin [Mass/Vol] 0.3 mg/dL Normal 0.2-1.0 [facility] Comment on above: Performed By: #### C VDTBH #### [facility] [address] [place] [address] Dr. Johnna Dixon Globulin (S) [Mass/Vol] 2.5 g/dL Normal [facility] Comment on above: Performed By: #### C VDTBH #### [facility] [address] [place] [address] Dr. Johnna Dixon Protein [Mass/Vol] 6.4 g/dL Normal 6.4-8.2 [facility] Comment on above: Performed By: #### C VDTBH #### [facility] [address] [place] [address] Dr. Johnna Dixon PROF CHEM 8 (BAS METB)on Anion gap [Moles/Vol] 13.4 mmol/L Normal [facility] Comment on above: Performed By: #### C VDTBH #### [facility] [address] [place] [address] Dr. Johnna Dixon Calcium [Mass/Vol] 8.9 mg/dL Normal 8.5-10.1 [facility] Comment on above: Performed By: #### C VDTBH #### [facility] [address] [place] [address] Dr. Johnna Dixon Chloride [Moles/Vol] 106 mmol/L Normal 98-107 [facility] Comment on above: Performed By: #### C VDTBH #### [facility] [address] [place] [address] Dr. Johnna Dixon CO2 [Moles/Vol] 25.6 mmol/L Normal 21.0-32.[address] [facility] Comment on above: Performed By: #### C VDTBH #### [facility] [address] [place] [address] Dr. Johnna Dixon Creatinine [Mass/Vol] 1.21 mg/dL Normal 0.70-1.30 [facility] Comment on above: Performed By: #### C VDTBH #### [facility] [address] [address] [address] Johnna Dixon EGFR-AF INDONESIAN >60 Normal >=[address] [facility] Comment on above: Performed By: #### C VDTBH #### [facility] [address] [address] [address] Johnna Dixon EGFR-NON AF INDONESIAN 59 mL/min/1.73m2 Critically low >=60 [facility] Comment on above: Performed By: #### C VDTBH #### [facility] [address] [address] [address] Johnna Dixon Glucose [Mass/Vol] 115 mg/dL Critically high 74-106 [facility] Comment on above: Performed By: #### C VDTBH #### [facility] [address] [place] [address] Dr. Johnna Dixon Potassium [Moles/Vol] 4.0 mmol/L Normal 3.5-5.1 [facility] Comment on above: Performed By: #### C VDTBH #### [facility] [address] [address] [address] Johnna Dixon Sodium [Moles/Vol] 141 mmol/L Normal 136-145 [facility] Comment on above: Performed By: #### C VDTBH #### [facility] [address] [place] [address] Dr. Johnna Dixon Urea nitrogen [Mass/Vol] 19.0 mg/dL Critically high 7.0-18.0 [facility] Comment on above: Performed By: #### C VDTBH #### [facility] [address] [place] [address] Dr. Johnna Dixon Urea nitrogen/Creatinine [Mass ratio] 15.7 mg/mg Normal [facility] Comment on above: Performed By: #### C VDTBH #### [facility] [address] [address] [address] Johnna Dixon CREATININEon 08-04-2022 Creatinine [Mass/Vol] 1.31 mg/dL Critically high 0.70-1.30 [facility] Comment on above: Performed By: #### C JANIS #### [facility] [address] [place], [place] [address] Dr. Johnna Dixon EGFR-AF INDONESIAN >60 Normal >=60 [facility] Comment on above: Performed By: #### C JANIS #### [facility] [address] [place], [place] [address] Dr. Johnna Dixon EGFR-NON AF INDONESIAN 54 mL/min/1.73m2 Critically low >=60 [facility] Comment on above: Performed By: #### C JANIS #### [facility] [address] [place], [place] [address] Dr. Johnna Dixon CTA NECK WO W [...] by: ALLI CORTES Date: 2022-07-28 12:00 Normal [facility] XR KNEE RT 4V or [...] by: DEBORAH ZARAGOZA Date: 2022-06-30 17:38 Normal [facility] XR RIBS RT PA Fab [...] by: SOCORRO SERRANO Date: 2022-05-25 14:51 Normal [facility] XR RIBS RT PA Fab [...] Date: 2022-04-18 16:17 Normal [facility] CULTURE URINEon 03-12-2022 CULTURE URINE Culture Observations : NO GROWTH. Normal [facility] Comment on above: Performed By: #### S PUTGS #### [facility] [address] [address] [address] Johnna Dixon COVID-19 Positive/NegativeOr dered By: Lionel Whitney on 02-13-2022 SARS-CoV-2 (COVID-19) N gene REX+probe Ql (Resp) Negative Negative [facility] Comment on above: Testing for SARS-CoV -2 by RT-PCR This test was developed and its performance characteristics determined by [employer] ([employer]) and validated at the [facility]. This test has not been FDA [...] aPTT Coag (PPP) [Time] 34.8 s 25.1-36.5 [facility] Basophils Auto (Bld) [#/Vol] Ordered By: Lionel Whitney on 02-06-2022 Basophils (Bld) [#/Vol] 0.0 10*3/uL 0.0-0.2 [facility] Basophils/100 WBC Auto (Bld) Ordered By: Lionel Whitney on 02-06-2022 Basophils/100 WBC (Bld) 0.8 % . [facility] Blood hemoglobin measurement (mass/volume)Ordered By: Lionel Whitney on 02-06-2022 Hemoglobin (Bld) [Mass/Vol] 13.2 g/dL 13.0-17.0 [facility] Blood leukocytes automated c ount (number/volume)Ordered By: Lionel Whitney on 02-06-2022 WBC (Bld) [#/Vol] 5.7 10*3/uL 4.5-11.0 [facility] Creatinine and Glomerular fi ltration rate.predicted panel (S/P/Bld)Ordered By: Lionel Whitney on 02-06-2022 Creatinine [Mass/Vol] 1.21 mg/dL 0.64-1.27 [facility] Eosinophils Auto (Bld) [#/Vo l]Ordered By: Lionel Whitney on 02-06-2022 Eosinophils (Bld) [#/Vol] 0.1 10*3/uL 0.0-0.45 [facility] Eosinophils/100 WBC Auto (Bl d)Ordered By: Lionel Whitney on 02-06-2022 Eosinophils/100 WBC (Bld) 1.7 % . [facility] Erythrocyte distribution wid th Auto (RBC) [Ratio]Ordered By: Lionel Whitney on 02-06-2022 Erythrocyte distribution width (RBC) [Ratio] 14.2 % 12.0-14.8 [facility] Estimated glomerular filtrat ion rate (GFR) non- AmericanOrdered By: Lionel Whitney on 02-06-2022 GFR/1.73 sq M.predicted among non-blacks MDRD (S/P/Bld) [Vol rate/Area] 59 mL/Min [facility] Hematocrit Auto (Bld) [Volum e fraction]Ordered By: Lionel Whitney on 02-06-2022 Hematocrit (Bld) [Volume fraction] 40.8 % 38.8-50.0 [facility] - CoagulationOrde red By: Lionel Whitney on 02-06-2022 PT Coag (PPP) [Time] 11.0 s 9.0-12.9 [facility] - Hematology and Cell countsOrdered By: Lionel Whitney on 02-06-2022 Nucleated RBC/100 WBC (Bld) [Ratio] 0.1 % 0-0.5 [facility] Lymphocytes Auto (Bld) [#/Vo l]Ordered By: Lionel Whitney on 02-06-2022 Lymphocytes (Bld) [#/Vol] 1.6 10*3/uL 1.00-4.8 [facility] Lymphocytes/100 WBC Auto (Bl d)Ordered By: Lionel Whitney on 02-06-2022 Lymphocytes/100 WBC (Bld) 27.4 % . [facility] MCH Auto (RBC) [Entitic mass ]Ordered By: Lionel Whitney on 02-06-2022 MCH (RBC) [Entitic mass] 29.7 pg 27.5-35.2 [facility] MCHC Auto (RBC) [Mass/Vol]Or dered By: Lionel Whitney on 02-06-2022 MCHC (RBC) [Mass/Vol] 32.4 g/dL 32.5-35.6 [facility] MCV Auto (RBC) [Entitic vol] Ordered By: Lionel Whitney on 02-06-2022 MCV (RBC) [Entitic vol] 91.6 fL 83.5-101 [facility] Monocytes Auto (Bld) [#/Vol] Ordered By: Lionel Whitney on 02-06-2022 Monocytes (Bld) [#/Vol] 0.5 10*3/uL 0.0-0.8 [facility] Monocytes/100 WBC Auto (Bld) Ordered By: Lionel Whitney on 02-06-2022 Monocytes/100 WBC (Bld) 8.7 % . [facility] Neutrophils Auto (Bld) [#/Vo l]Ordered By: Lionel Whitney on 02-06-2022 Neutrophils (Bld) [#/Vol] 3.5 10*3/uL 1.8-7.7 [facility] Neutrophils/100 WBC Auto (Bl d)Ordered By: Lionel Whitney on 02-06-2022 Neutrophils/100 WBC (Bld) 61.4 % . [facility] No Panel InformationOrdered By: Lionel Whitney on 02-06-2022 Estimated GFR () > 60 mL/Min [facility] Comment on above: GFR estimated refere nce range: According to KDOQI guidelines, <60 ml/min/1.73m2 is sufficient to diagnose a patient with chronic kidney disease. Pharmacy Creatinine Clearance (Chem N/A [facility] Platelet mean volume Auto (B ld) [Entitic vol]Ordered By: Lionel Whitney on 02-06-2022 Platelet mean volume (Bld) [Entitic vol] 8.4 fL 6.6-10.1 [facility] Platelet poor plasma interna tional normalized ratio (INR) by coagulation assay (relatOrdered By: Lionel Whitney on 02-06-2022 INR Coag (PPP) [Relative time] 1.0 {INR} [facility] Comment on above: INR Therapeutic Rang [...] 02-06-2022 Platelets (Bld) [#/Vol] 248 10*3/uL 150-450 [facility] RBC Auto (Bld) [#/Vol]Ordere d By: Lionel Whitney on 02-06-2022 RBC (Bld) [#/Vol] 4.45 10*6/uL 3.90-5.60 [facility] Serum or plasma calcium eliezer urement (mass/volume)Ordered By: Lionel Whitney on 02-06-2022 Calcium [Mass/Vol] 9.7 mg/dL 8.2-10.2 [facility] Serum or plasma chloride sammy surement (moles/volume)Ordered By: Lionel Whitney on 02-06-2022 Chloride [Moles/Vol] 99 mmol/L 95-114 [facility] Serum or plasma glucose eliezer urement (mass/volume)Ordered By: Lionel Whitney on 02-06-2022 Glucose [Mass/Vol] 99 mg/dL 70-100 [facility] Comment on above: ADA recommended refe rence range Random Glucose Reference Range is dependent on time and content of last meal. Glucose of more than 200 mg/dL in a nonstressed, ambulatory subject supports the diagnosis of Diabetes Mellitus. Serum or plasma potassium me asurement (moles/volume)Ordered By: Lionel Whitney on 02-06-2022 Potassium [Moles/Vol] 4.4 mmol/L 3.5-5.1 [facility] Serum or plasma sodium measu rement (moles/volume)Ordered By: Lionel Whitney on 02-06-2022 Sodium [Moles/Vol] 135 mmol/L 136-146 [facility] Serum or plasma total carbon dioxide measurement (moles/volume)Ordered By: Lionel Whitney on 02-06-2022 CO2 [Moles/Vol] 26.2 mmol/L 22.0-30.0 [facility] Serum or plasma urea nitroge n measurement (mass/volume)Ordered By: Lionel Whitney on 02-06-2022 Urea nitrogen [Mass/Vol] 20 mg/dL 03-13 [facility] COVID-19 Positive/NegativeOr dered By: Lionel Whitney on 10-27-2021 SARS-CoV-2 (COVID-19) N gene REX+probe Ql (Resp) Negative Negative [facility] Comment on above: Testing for SARS-CoV -2 by RT-PCR This test was developed and its performance characteristics determined by [employer] ([employer] and validated at the [facility]. This test has not been FDA [...] aPTT Coag (PPP) [Time] 36.2 s 25.1-36.5 [facility] Basophils Auto (Bld) [#/Vol] Ordered By: Lionel Whitney on 10-17-2021 Basophils (Bld) [#/Vol] 0.0 10*3/uL 0.0-0.2 [facility] Basophils/100 WBC Auto (Bld) Ordered By: Lionel Whitney on 10-17-2021 Basophils/100 WBC (Bld) 0.6 % [facility] Blood hemoglobin measurement (mass/volume)Ordered By: Lionel Whitney on 10-17-2021 Hemoglobin (Bld) [Mass/Vol] 13.6 g/dL 13.0-17.0 [facility] Blood leukocytes automated c ount (number/volume)Ordered By: Lionel Whitney on 10-17-2021 WBC (Bld) [#/Vol] 5.9 10*3/uL 4.5-11.0 [facility] Creatinine and Glomerular fi ltration rate.predicted panel (S/P/Bld)Ordered By: Lionel Whitney on 10-17-2021 Creatinine [Mass/Vol] 0.96 mg/dL 0.64-1.27 [facility] Eosinophils Auto (Bld) [#/Vo l]Ordered By: Lionel Whitney on 10-17-2021 Eosinophils (Bld) [#/Vol] 0.1 10*3/uL 0.0-0.45 [facility] Eosinophils/100 WBC Auto (Bl d)Ordered By: Lionel Whitney on 10-17-2021 Eosinophils/100 WBC (Bld) 2.0 % [facility] Erythrocyte distribution wid th Auto (RBC) [Ratio]Ordered By: Lionel Whitney on 10-17-2021 Erythrocyte distribution width (RBC) [Ratio] 14.5 % 12.0-14.8 [facility] Estimated glomerular filtrat ion rate (GFR) non- AmericanOrdered By: Lionel Whitney on 10-17-2021 GFR/1.73 sq M.predicted among non-blacks MDRD (S/P/Bld) [Vol rate/Area] > 60 mL/Min [facility] Hematocrit Auto (Bld) [Volum e fraction]Ordered By: Lionel Whitney on 10-17-2021 Hematocrit (Bld) [Volume fraction] 41.5 % 38.8-50.0 [facility] - CoagulationOrde red By: Lionel Whitney on 10-17-2021 PT Coag (PPP) [Time] 11.0 s 9.0-12.9 [facility] - Hematology and Cell countsOrdered By: Lionel Whitney on 10-17-2021 Nucleated RBC/100 WBC (Bld) [Ratio] 0.0 % 0-0.5 [facility] Lymphocytes Auto (Bld) [#/Vo l]Ordered By: Lionel Whitney on 10-17-2021 Lymphocytes (Bld) [#/Vol] 1.6 10*3/uL 1.00-4.8 [facility] Lymphocytes/100 WBC Auto (Bl d)Ordered By: Lionel Whitney on 10-17-2021 Lymphocytes/100 WBC (Bld) 26.8 % [facility] MCH Auto (RBC) [Entitic mass ]Ordered By: Lionel Whitney on 10-17-2021 MCH (RBC) [Entitic mass] 29.3 pg 27.5-35.2 [facility] MCHC Auto (RBC) [Mass/Vol]Or dered By: Lionel Whitney on 10-17-2021 MCHC (RBC) [Mass/Vol] 32.7 g/dL 32.5-35.6 [facility] MCV Auto (RBC) [Entitic vol] Ordered By: Lionel Whitney on 10-17-2021 MCV (RBC) [Entitic vol] 89.8 fL 83.5-101 [facility] Monocytes Auto (Bld) [#/Vol] Ordered By: Lionel Whitney on 10-17-2021 Monocytes (Bld) [#/Vol] 0.6 10*3/uL 0.0-0.8 [facility] Monocytes/100 WBC Auto (Bld) Ordered By: Lionel Whitney on 10-17-2021 Monocytes/100 WBC (Bld) 10.6 % [facility] Neutrophils Auto (Bld) [#/Vo l]Ordered By: Lionel Whitney on 10-17-2021 Neutrophils (Bld) [#/Vol] 3.5 10*3/uL 1.8-7.7 [facility] Neutrophils/100 WBC Auto (Bl d)Ordered By: Lionel Whitney on 10-17-2021 Neutrophils/100 WBC (Bld) 60.0 % [facility] No Panel InformationOrdered By: Lionel Whitney on 10-17-2021 Estimated GFR () > 60 mL/Min [facility] Comment on above: GFR estimated refere nce range: According to KDOQI guidelines, <60 ml/min/1.73m2 is sufficient to diagnose a patient with chronic kidney disease. Pharmacy Creatinine Clearance (Chem N/A [facility] Platelet mean volume Auto (B ld) [Entitic vol]Ordered By: Lionel Whitney on 10-17-2021 Platelet mean volume (Bld) [Entitic vol] 8.3 fL 6.6-10.1 [facility] Platelet poor plasma interna tional normalized ratio (INR) by coagulation assay (relatOrdered By: Lionel Whitney on 10-17-2021 INR Coag (PPP) [Relative time] 1.0 {INR} [facility] Comment on above: INR Therapeutic Rang [...] 10-17-2021 Platelets (Bld) [#/Vol] 249 10*3/uL 150-450 [facility] RBC Auto (Bld) [#/Vol]Ordere d By: Lionel Whitney on 10-17-2021 RBC (Bld) [#/Vol] 4.62 10*6/uL 3.90-5.60 [facility] Serum or plasma calcium eliezer urement (mass/volume)Ordered By: Lionel Whitney on 10-17-2021 Calcium [Mass/Vol] 9.7 mg/dL 8.2-10.2 [facility] Serum or plasma chloride sammy surement (moles/volume)Ordered By: Lionel Whitney on 10-17-2021 Chloride [Moles/Vol] 101 mmol/L 95-114 [facility] Serum or plasma glucose eliezer urement (mass/volume)Ordered By: Lionel Whitney on 10-17-2021 Glucose [Mass/Vol] 87 mg/dL 70-100 [facility] Comment on above: ADA recommended refe rence range Random Glucose Reference Range is dependent on time and content of last meal. Glucose of more than 200 mg/dL in a nonstressed, ambulatory subject supports the diagnosis of Diabetes Mellitus. Serum or plasma potassium me asurement (moles/volume)Ordered By: Lionel Whitney on 10-17-2021 Potassium [Moles/Vol] 4.4 mmol/L 3.5-5.1 [facility] Serum or plasma sodium measu rement (moles/volume)Ordered By: Lionel Whitney on 10-17-2021 Sodium [Moles/Vol] 136 mmol/L 136-146 [facility] Serum or plasma total carbon dioxide measurement (moles/volume)Ordered By: Lionel Whitney on 10-17-2021 CO2 [Moles/Vol] 25.6 mmol/L 22.0-30.0 [facility] Serum or plasma urea nitroge n measurement (mass/volume)Ordered By: Lionel Whitney on 10-17-2021 Urea nitrogen [Mass/Vol] 18 mg/dL 9-23 [facility] Vital Signs Date Time Vital Sign Value Performing Clinician Facility 03-28-2024 14:58-0400 Body height 182.[address] [facility] 03-28-2024 14:58-0400 Body mass index (BMI) [Ratio] 24.7 kg/m2 [facility] 03-28-2024 14:58-0400 Body weight [address] [facility] 10-11-2023 15:270400 Body height 182.88 cm MD Yolande Monterroso Work Phone: [facility] 10-11-2023 15:27-0400 Body mass index (BMI) [Ratio] 25 kg/m2 MD Yolande Monterroso Work Phone: [facility] 10-11-2023 15:27-0400 Body temperature 97.2 [degF] MD Yolande Monterroso Work Phone: [facility] 10-11-2023 15:27-0400 Body weight 83.91 kg MD Yolande Monterroso Work Phone: [facility] 10-11-2023 15:27-0400 Diastolic blood pressure 88 mm[Hg] MD Yolande Monterroso Work Phone: [facility] 10-11-2023 15:27-0400 Heart rate 79 /min MD Yolande Monterroso Work Phone: [facility] 10-11-2023 15:27-0400 Systolic blood pressure 146 mm[Hg] MD Yolande Monterroso Work Phone: [facility] 10-04-2023 10:35-0400 Blood Pressure Location Lionel WHITNEY [facility] 10-04-2023 10:35-0400 Diastolic blood pressure 88 mm[Hg] Lionel WHITNEY [facility] 10-04-2023 10:35-0400 Heart rate 72 /min Lionel WHITNEY [facility] 10-04-2023 10:35-0400 Respiratory rate 16 /min Lionel WHITNEY [facility] 10-04-2023 10:35-0400 Systolic blood pressure 136 mm[Hg] Lionle WHITNEY [facility] 08-12-2023 11:10-0500 Body height 182.88 cm MD Yolande Monterroso Work Phone: [facility] 08-12-2023 11:10-0500 Body mass index (BMI) [Ratio] 24.3 kg/m2 MD Yolande Monterroso Work Phone: [facility] 08-12-2023 11:10-0500 Body weight 81.19 kg MD Yolande Monterroso Work Phone: [facility] 02-10-2023 14:16-0400 Blood Pressure Location Qamar BOWERSL [facility] 02-10-2023 14:16-0400 Diastolic blood pressure 80 mm[Hg] Qamar NILL [facility] 02-10-2023 14:16-0400 Heart rate 70 /min Qamar NILL [facility] [place] 02-10-2023 14:16-0400 Respiratory rate 16 /min Qamar NILL [facility] [place] 02-10-2023 14:16-0400 Systolic blood pressure 124 mm[Hg] Qamar NILL [facility] 12-03-2022 10:20-0400 Body height 182.88 cm Zoran Chavez Other [facility] Other 12-03-2022 10:20-0400 Body mass index (BMI) [Ratio] 25.49 kg/m2 Zoran Chavez Other [facility] Other 12-03-2022 10:20-0400 Body weight 85.28 kg Zoran Chavez Other [facility] Other 10-22-2022 10:20-0400 Body height 182.88 cm Zoran Chavez Other [facility] Other 10-22-2022 10:20-0400 Body mass index (BMI) [Ratio] 25.63 kg/m2 Zoran Chavez Other [facility] Other 10-22-2022 10:20-0400 Body weight 85.73 kg Zoran Chavez Other [facility] Other 10-22-2022 10:20-0400 Diastolic blood pressure 80 mm[Hg] Zoran Chavez Other [facility] [employer] Other 10-22-2022 10:20-0400 Systolic blood pressure 110 mm[Hg] Zoran Chavez Other [facility] [employer] Other 02-24-2022 10:43-0400 Blood Pressure Location Lioneljameel WHITNEY [facility] 02-24-2022 10:43-0400 Diastolic blood pressure 80 mm[Hg] Lionel WHITNEY [facility] 02-24-2022 10:43-0400 Heart rate 65 /min Lionel WHITNEY [facility] 02-24-2022 10:43-0400 Respiratory rate 16 /min Lionel WHITNEY [facility] 02-24-2022 10:43-0400 Systolic blood pressure 140 mm[Hg] Lionel WHITNEY [facility] 02-17-2022 15:15-0400 Diastolic blood pressure 83 mm[Hg] MD Yolande Monterroso Work Phone: [facility] 02-17-2022 15:15-0400 Heart rate 58 /min MD Yolande Monterroso Work Phone: [facility] 02-17-2022 15:15-0400 Respiratory rate 16 /min MD Yolande Monterroso Work Phone: [facility] 02-17-2022 15:15-0400 SaO2% (BldA) [Mass fraction] 95 % MD Yolande Monterroso Work Phone: [facility] 02-17-2022 15:15-0400 Systolic blood pressure 166 mm[Hg] MD Yolande Monterroso Work Phone: [facility] 02-17-2022 14:30-0400 Body height 182.88 cm MD Yolande Monterroso Work Phone: [facility] 02-17-2022 14:30-0400 Body mass index (BMI) [Ratio] 26.2 kg/m2 MD Yolande Monterroso Work Phone: [facility] 02-17-2022 14:30-0400 Body weight 87.7 kg MD Yolande Monterroso Work Phone: [facility] 02-17-2022 14:17-0400 Body temperature 97.6 [degF] MD Yolande Monterroso Work Phone: [facility] 02-17-2022 13:52-0400 Inhaled oxygen flow rate 10 L/min MD Yolande Monterroso Work Phone: [facility] 10-17-2021 11:42-0400 Body height 180.34 cm MD Yolande Monterroso Work Phone: [facility] 10-17-2021 11:42-0400 Body mass index (BMI) [Ratio] 27 kg/m2 MD Yolande Monterroso Work Phone: [facility] 10-17-2021 11:42-0400 Body temperature 98.4 [degF] MD Yolande Monterroso Work Phone: [facility] 10-17-2021 11:42-0400 Body weight 88 kg MD Yolande Monterroso Work Phone: [facility] 10-17-2021 11:42-0400 Diastolic blood pressure 90 mm[Hg] MD Yolande Monterroso Work Phone: [facility] 10-17-2021 11:42-0400 Heart rate 64 /min MD Yolande Monterroso Work Phone: [facility] 10-17-2021 11:42-0400 SaO2% (BldA) [Mass fraction] 100 % MD Yolande Monterroso Work Phone: [facility] 10-17-2021 11:42-0400 Systolic blood pressure 172 mm[Hg] MD Yolande Monterroso Work Phone: [facility] Encounters Encounter Date Encounter Type Care Provider Facility Start: 03-28-2024 End: 03-28-2024 ambulatory [facility] Work Phone: Start: 03-28-2024 End: 03-28-2024 Patient encounter procedure [facility] Work Phone: Start: 03-27-2024 End: 03-27-2024 ambulatory Tamiko Landa MD Facility:[facility] Start: 10-26-2023 End: 10-26-2023 ambulatory Lionel WHITNEY [facility] Start: 10-26-2023 End: 10-26-2023 Patient encounter procedure Lionel WHITNEY [facility] Start: 10-11-2023 End: 10-11-2023 ambulatory MD Yolande Monterroso Work Phone: [facility] Work Phone: Start: 10-11-2023 End: 10-11-2023 Patient encounter procedure MD Yolande Monterroso Work Phone: [facility] Work Phone: Start: 10-04-2023 End: 10-04-2023 ambulatory Lionel WHITNEY Facility:[facility] Start: 10-04-2023 End: 10-04-2023 Patient encounter procedure Lionel WHITNEY [facility] Start: 09-30-2023 End: 09-30-2023 ambulatory KELLY ORTIZ Not Available Start: 09-09-2023 End: 09-09-2023 ambulatory VASU GALEANO Not Available Start: 08-28-2023 End: 08-28-2023 ambulatory Yolande Monterroso Facility:[facility] Start: 08-28-2023 End: 08-28-2023 Patient encounter procedure MD Yolande Monterroso Work Phone: [facility] [place] Work Phone: Start: 08-12-2023 End: 08-12-2023 ambulatory Yolande Monterroso Facility:[facility] Start: 08-12-2023 End: 08-12-2023 ambulatory MD Yolande Monterroso Work Phone: [facility] Work Phone: Start: 08-12-2023 End: 08-12-2023 Patient encounter procedure MD Yolande Monterroso Work Phone: [facility] [place] Work Phone: Start: 08-12-2023 End: 08-12-2023 ambulatory MD Yolande Monterroso Work Phone: [facility] Work Phone: Start: 08-12-2023 End: 08-12-2023 Patient encounter procedure MD Yolande Monterroso Work Phone: [facility] Work Phone: Start: 07-26-2023 End: 07-26-2023 ambulatory Tamiko Landa MD Facility: [place] Start: 04-27-2023 End: 04-27-2023 ambulatory Lionel WHITNEY [facility] Start: 04-27-2023 End: 04-27-2023 Patient encounter procedure Lionel WHITNEY [facility] Start: 02-10-2023 End: 02-10-2023 Patient encounter procedure Qamar SMITH [facility] [place] Start: 01-05-2023 End: 01-05-2023 Patient encounter procedure Lionel WHITNEY [facility] Start: 01-01-2023 End: 01-01-2023 ambulatory Yolande Monterroso Facility:[facility] Start: 01-01-2023 End: 01-01-2023 ambulatory MD Yolande Monterroso Work Phone: [facility] Work Phone: Start: 01-01-2023 End: 01-01-2023 Patient encounter procedure MD Yolande Monterroso Work Phone: [facility] [place] Work Phone: Start: 12-03-2022 End: 12-03-2022 ambulatory Zoran Chavez Other [facility] Other Start: 12-03-2022 Office outpatient visit 15 minutes Zoran Chavez [facility] Start: 11-20-2022 ambulatory ANDRIUS GIEDRAITIS Faci lity:[facility] Start: 10-28-2022 End: 10-29-[address] NELLY HERRERA Facility:[facility] Start: 10-27-2022 End: 11-18-[address] ZORAN CHAVEZ Facility:[facility] Start: 10-23-2022 End: 10-24-[address] ZORAN CHAVEZ Facility:[facility] Start: 10-22-2022 End: 10-22-2022 ambulatory Zoran Chavez Other [facility] Other Start: 10-22-2022 Office outpatient visit 15 minutes Zoran Chavez [facility] Start: 10-05-2022 End: 10-06-[address] YOLANDE MONTERROSO . Facility:[facility] Start: 09-24-2022 End: 09-25-[address] YOLANDE MONTERROSO . Facility:[facility] Start: 09-21-2022 End: 09-22-[address] LIONEL WHITNEY . Facility:[facility] Start: 09-21-2022 End: 09-21-2022 Patient encounter procedure Lionel WHITNEY [facility] Start: 08-19-2022 End: 08-20-[address] LIONEL WHITNEY . Facility:[facility] Start: 08-17-2022 End: 08-17-2022 Patient encounter procedure Lionel WHITNEY [facility] Start: 08-04-2022 End: 08-05-[address] YOLANDE MONTERROSO . Facility:[facility] Start: 07-28-2022 End: 07-29-[address] YOLANDE MONTERROSO . Facility:[facility] Start: 07-23-2022 End: 07-23-[address] LIONEL WHITNEY . Facility:[facility] Start: 07-20-2022 End: 07-20-2022 Patient encounter procedure Lionel WHITNEY [facility] Start: 07-07-2022 End: 07-07-2022 Patient encounter procedure Lionel WHITNEY [facility] Start: 06-30-2022 End: 07-01-[address] YOLANDE MONTERROSO . Facility:[facility] Start: 06-04-2022 End: 06-04-[address] YOLANDE MONTERROSO . Facility:[facility] Start: 05-25-2022 End: 05-26-[address] YOLANDE MONTERROSO . Facility:[facility] Start: 05-18-2022 End: 05-18-2022 Patient encounter procedure Lionel WHITNEY [facility] Start: 04-27-2022 End: 04-28-[address] YOLANDE MONTERROSO . Facility:[facility] Start: 04-18-2022 End: 04-18-[address] FELICIA GALDAMEZ . Facility:[facility] Start: 04-15-2022 End: 04-15-2022 Patient encounter procedure Lionel WHITNEY [facility] Start: 03-26-2022 End: 03-26-[address] LIONEL WHITNEY . Facility:[facility] Start: 03-12-2022 End: 03-13-[address] YOLANDE MONTERROSO . Facility:[facility] Start: 03-09-2022 End: 03-09-2022 Patient encounter procedure Lionel WHITNEY [facility] Start: 02-27-2022 End: 02-27-2022 Lab Drop off Lionel WHITNEY [facility] Start: 02-27-2022 End: 02-27-2022 Patient encounter procedure Lionel WHITNEY [facility] [place] Start: 02-24-2022 End: 02-24-2022 Patient encounter procedure Lionel WHITNEY [facility] Start: 02-17-2022 End: 02-17-2022 Admission to same day surgery center MD Yolande Monterroso Work Phone: [facility] [place] Start: 02-13-2022 End: 02-13-2022 Patient encounter procedure MD Yolande Monterroso Work Phone: [facility] Start: 02-06-2022 End: 02-06-2022 Patient encounter procedure MD Yolande Monterroso Work Phone: [facility] Start: 11-11-2021 End: 11-11-2021 Patient encounter procedure Lionel WHITNEY [facility] Start: 11-05-2021 End: 11-05-2021 Patient encounter procedure Lionel WHITNEY [facility] Start: 10-29-2021 End: 10-29-2021 Admission to same day surgery center MD Yolande Monterroso Work Phone: [facility] [place] Start: 10-27-2021 End: 10-27-2021 Patient encounter procedure MD Yolande Monterroso Work Phone: [facility] Start: 10-17-2021 End: 10-17-2021 Patient encounter procedure MD Yolande Monterroso Work Phone: [facility] Procedures Date Procedure Procedure [...] [facility] [address] [place] [address] Dr. Johnna Dixon Start: 02-17-2022 Transurethral resect [...] bunionectomies Lionel WHITNEY Start: 08-19-2014 Radical prostatectomy P tiffany WHITNEY Start: 08-15-2014 Radical perineal prostatectomy Lionel WHITNEY Comment on above: had recently at [facility] Start: 05-21-2014 Colonoscopy Qamar [...] Detail Author Start: 10-09-2024 ambulatory Ambulatory Facility:[facility] [place] Start: 08-12-2023 Patient referral [facility] Work Phone: Start: 08-12-2023 X-ray of cervical spine XR cer vical spine w flex/ext [facility] Start: 08-12-2023 X-ray of lumbar spin e, six views including bending views XR lumbar spine 6V w bending [facility] Start: 08-12-2023 XR Cervical spine Vi ews W flexion and W extension [facility] Start: 08-12-2023 XR Lumbar spine Views F [facility] Start: 02-17-2022 End: 02-17-2022 [facility] Work Phone: Start: 02-17-2022 Transurethral resect ion of bladder neoplasm OR Cysto/TURBT/Bladder Biopsy/Fulg (Not Applicable) [facility] Start: 02-17-2022 End: 02-17-2022 Admission to same day surgery center Departed Surgical Day Care [facility] [place] Start: 02-13-2022 End: 02-13-2022 Patient encounter procedure Departed Clinical [facility]Akgn[facility] Testing Microbial culture of sputum [facility] MR Cervical spine WO and W contrast IV [facility] Patient referral [facility] Work Phone: Immunizations Immunization Date Immunization Notes Care Provider Gary francisco 07-13-2023 zoster vaccine recombinant Lionel WHITNEY [facility] 03-23-2023 influenza virus vacc ine, unspecified formulation Lionel WHITNEY [facility] 03-23-2023 zoster vaccine recombinant Lionel WHITNEY [facility] 04-16-2022 SARS-CoV-2 (COVID-19 ) [id number] Qamar SMITH [facility] 03-27-2022 influenza virus vacc ine, unspecified formulation Qamar LUIS [facility] 05-06-2021 COVID-19 mRNA-1273 (Moderna) MD Yolande Monterroso Work Phone: [facility] 09-19-2020 COVID-19 mRNA-1273 (Moderna) MD Yolande Monterroso Work Phone: [facility] Comment on above: Result Comment: 2022: [id number] 08-22-2020 COVID-19 mRNA-1273 (Moderna) MD Yolande Monterroso Work Phone: [facility] Comment on above: Result Comment: 2022: [id number] 06-21-2020 SARS-CoV-2 (COVID-19 ) mRNA-1273 vaccine Lionel WHITNEY [facility] 05-23-2020 influenza virus vacc ine, unspecified formulation Qamar BOWERSDmitriy [facility] 04-03-2020 influenza virus vacc ine, unspecified formulation Qamar LUIS [facility] 05-29-2019 influenza virus vacc ine, unspecified formulation Qamar LUIS [facility] 04-14-2019 influenza, unspecifi ed formulation Qamar LUIS [facility] 09-26-2018 tetanus and diphther ia toxoids, adsorbed, preservative free, for adult use (2 Lf of tetanus toxoid and 2 Lf of diphtheria toxoid) Qamar SMITH [facility] 10-11-2017 pneumococcal polysaccharide vaccine, 23 valent Qamar NILL [facility] 07-22-2016 pneumococcal conjuga te vaccine, 13 valent Qamar NILL [facility] 06-29-2013 tetanus toxoid, redu mirtha diphtheria toxoid, and acellular pertussis vaccine, adsorbed Qamar NILL [facility] 03-10-2000 Td(adult) unspecifie d formulation Qamar NILL [facility] Payers Date Payer Category Payer Self-pay [id number] 2022 Unknown 1958 Medicare [id number] 1958 Unknown [id number] 2.16.840.1.226402.19 1951 Unknown [id number] 2..840.1.842337.3.579.2. 593 1951 Unknown [id number] 2..840.1.910097.3.579.2. 593 1951 Unknown [id number] 2.16.840.1.888166.3.579.2. 593 1951 Unknown [id number] 2.16.840.1.787895.3.579.2. 593 1951 Unknown [id number] 2.16.840.1.725075.3.579.2. 593 1951 Unknown [id number] 2.16.840.1.295405.3.579.2. 593 1951 Unknown [id number] 2.16.840.1.268613.3.579.2. 593 1951 Unknown [id number] 2.16.840.1.950421.3.579.2. 593 1951 Unknown [id number] 2.16.840.1.100134.3.579.2. 593 1951 Unknown [id number] 2.16.840.1.350136.3.579.2. 593 1951 Unknown [id number] 2.16.840.1.653545.3.579.2. 593 1951 Unknown [id number] 2.16.840.1.953034.3.579.2. 593 1951 Unknown [id number] 2.16.840.1.464882.3.579.2. 593 1951 Unknown [id number] 2.16.840.1.223795.3.579.2. 593 1951 Unknown [id number] 2.16.840.1.448537.3.579.2. 593 1951 Unknown [id number] 2.16.840.1.641166.3.579.2. 593 1951 Unknown [id number] 2.16.840.1.113145.3.579.2. 593 1951 Unknown [id number] 2.16.840.1.134502.3.579.2. 593 1951 Unknown [id number] 2.16.840.1.197228.3.579.2. 593 1951 Unknown [id number] 2.16.840.1.768526.3.579.2. 1259 1951 Unknown [id number] 2.16.840.1.658193.3.579.2. 1259 1951 Unknown [id number] 2.16.840.1.288134.3.579.2. 196 1951 Unknown [id number] 2.16.840.1.715018.3.579.2. 196 1951 Unknown [id number] 2.16.840.1.686912.3.579.2. 727 1951 Unknown [id number] 2.16.840.1.070152.3.579.2. 727 1951 Unknown [id number] 2.16.840.1.858432.3.579.2. 727 1950 Unknown [id number] 2.16.840.1.358920.3.579.2. 727 Medicare Medicare [id number] Private Health Insurance [id number] Unknown [place] [id number] Unknown [id number] 2.16.840.1.380197.3.579.2. 531 Unknown [id number] 2.16.840.1.715079.3.579.2. 531 Unknown [id number] 2.16.840.1.655225.3.579.2. 531 Social History Date Type Detail Facility Start: 10-17-2021 End: 02-17-2022 Tobacco smoking status CAIS Ex-smoker (finding) [facility] Comment on above: pt quit smoking 10+ yrs ago Start: 1950 Sex Assigned At Male [facility] Start: 11-05-2021 Tobacco smoking status Never s moked tobacco (finding) [facility] Tobacco smoking status Never [facility] Comment on above: pt quit smoking 10+ yrs ago Sex Assigned At Male [facility] Medical Equipment Procedure Code Equipment Code Equipment Original Text Equipment Identifier Dates Transurethral resection of bladder tumor (TURBT) with cystoscopy Polymeric ureteral stent ()[id number] FDA Start: 10-29-2021 Decompression, spine, cervical, posterior approach Bone-screw internal spinal fixation system, non-sterile ()[id number] FDA Start: 04-18-2020 Decompression, spine, cervical, posterior approach Bone-screw internal spinal fixation system, non-sterile ()[id number] FDA Start: 04-18-2020 Decompression, spine, cervical, posterior approach Bone-screw internal spinal fixation system, non-sterile ()[id number] FDA Start: 04-18-2020 Decompression, spine, cervical, posterior approach Bone-screw internal spinal fixation system, non-sterile ()[id number] FDA Start: 04-18-2020 Decompression, spine, cervical, posterior approach Bone-screw internal spinal fixation system, non-sterile ()[id number] FDA Start: 04-18-2020 Goals Date Patient Goal Desired Activity /State Functional Status Date Assessment Result Facility 10-26-2023 Functional Status N/A [facility] 10-04-2023 Functional Status N/A [facility] 04-27-2023 Functional Status N/A [facility] 02-10-2023 Functional Status N/A [facility] 01-05-2023 Functional Status N/A [facility] 02-24-2022 Functional Status N/A [facility] Clinical Notes 11-04-2021 to 10-26-2023 Note Date & Type Note Facility 10-26-2023 Hospital Discharg e instructions Patient Education 10/26/2023 11:58:55 EU - [...] Up Care 09/29/2023 09:06:13 With:Lionel DEVONTE Address: [address] [place] [address] [facility] (1) When: Unknown Comments:Office will call to schedule follow up [facility] 10-26-2023 Note [id number] [facility] 10-26-2023 Note Custom Cystoscopy ? Voiding [...] you have a fever over 100 degrees. [facility] 10-04-2023 Hospital Discharg e instructions Patient Education 10/04/2023 10:57:15 Cancer Screening [...] if anything looks unusual. Men with a akzofc-ynqk-qiwdaw risk for skin cancer may want to see a product info specialist (back tacker) for an annual body check. What are the benefits of screening? Cancer screening is done to look for cancer in the very early stages, before it spreads and becomes harder to treat and before you would start to notice symptoms. Finding cancer early improves the chances of successful treatment. It may save your life. Where to find more information [employer]: www.cancer.org Centers for Disease Control and Prevention: www.cdc.gov National Cancer [place]: www.cancer.gov Contact a health care provider if: [...] provider. Document Revised: 11/03/2021 Document Reviewed: 05/03/2020 [employer] Patient Education 2022 [employer]. Follow Up Care 10/01/2022 10:55:16 With:DEVONTE NOBLE, Lionel Burgos, URL Address: [facility] [address] [place] [address]- [phone] When: Unknown Comments:1 yr w/ PSA [facility] 04-27-2023 Hospital Discharg e instructions Patient Education 04/27/2023 11:01:06 [facility] - [...] [facility] [address] [place] [address]- Business (1) When: Unknown Comments:Office will call to schedule follow up [facility] 04-27-2023 Note [id number] [facility] 04-27-2023 Note Custom Cystoscopy ? Voiding [...] you have a fever over 100 degrees. [facility] 01-05-2023 Hospital Discharg e instructions Patient Education 01/05/2023 10:55:52 EU - [...] Urology [address], [place] [address]- [facility] (1) When: Unknown Comments:Office will call to schedule follow up [facility] 12-03-2022 Evaluation note Encounter Date Diagnosis [...] M46.1) Nov, Neurogenic claudication (ICD-10 - R29.818) [facility] Other 05-04-2023 Evaluation note* Encounter Date Diagnosis [...] spine October, Neurogenic claudication (ICD-10 - R29.818) [facility] Other 04-03-2023 Hospital Discharge instructions Patient Education [...] if anything looks unusual. Men with a hvlpjk-ortm-tkgbao risk for skin cancer may want to see a product info specialist (back tacker) for an annual body check. Where to find more information National Cancer [place]: https://www.cancer.gov/about-cancer/screening Centers for Disease Control and Prevention: https://www.cdc.gov/cancer/dcpc/prevention/screening.htm [employer]: https://www.cancer.org/latest-news/3-edvyjx-lxiddeehk-lgfdw-eem-ryw.html Contact a health care provider if: You [...] 03/04/2017 Document Revised: 02/24/2019 Document Reviewed: 03/04/2017 [employer] Patient Education 2020 [employer]. Follow Up Care 09/19/2021 11:05:08 With:DEVONTE NOBLE, CAROLINA Salazar Address: [facility] [address] , [place] [address]- When: Unknown [facility] 01-17-2023 Hospital Discharge instructions Patient Education 07/07/2022 [...] 14:04:56 With:Lionel WHITNEY Address: [facility] [address] [place] [address]- Business (1) When: Unknown Comments:Office will call to schedule follow up [facility]09-06-2022 Hospital Discharge instructions Patient Education 02/24/2022 [...] if anything looks unusual. Men with a osdvtm-tjqk-cjecxk risk for skin cancer may want to see a product info specialist (back tacker) for an annual body check. Where to find more information National Cancer [place]: https://www.cancer.gov/about-cancer/screening Centers for Disease Control and Prevention: https://www.cdc.gov/cancer/dcpc/prevention/screening.htm [place] [employer]: https://www.cancer.org/latest-news/9-olbbrw-dhpihasld-qfgeb-otu-iuy.html Contact a health care provider if: You [...] 03/04/2017 Document Revised: 02/24/2019 Document Reviewed: 03/04/2017 [employer] Patient Education 2020 [employer] Follow Up Care 02/05/2022 13:48:40 With:DEVONTE NOBLE, Lionel Burgos, URL Address: [facility] [address] [place] [address] [id number] When: Unknown [facility] 05-24-2022 Hospital Discharge instructions Patient [...] WHITNEY Address: [facility] [address] [place] [address] [facility] (1) When: Unknown Comments:Keep scheduled appointment [facility]05-17-2022 Hospital Discharge instructions Patient Education 11/04/2021 [...] who: Are older than age 65. Are -Danish. Are obese. Have a family history of [...] cells. Follow these instructions at home: Take iyhp-tnh-exgynvk and prescription medicines only as told by [...] 06/07/2006 Document Revised: 05/20/2018 Document Reviewed: 02/15/2017 [employer]. Follow Up Care 10/14/2021 11:26:04 With:Lionel WHITNEY MD, URL Address: [facility] [address] , [place] [address]- When: Unknown [facility] Evaluation + Plan note Future Appointments Appointment Date:09/21/2022 09:45:00 AM Scheduled Provider:Lionel WHITNEY MD Location:[facility] Appointment Type:URO Office Visit [facility] Evaluation + Plan note Future Appointments Appointment Date:03/09/2022 09:00:00 AM Scheduled Provider: Location:[facility] [place] Appointment Type:URO Nurse Visit Appointment Date:04/15/2022 09:00:00 AM Scheduled Provider: Location:[facility] [place] Appointment Type:URO Nurse Visit Appointment Date:09/21/2022 09:45:00 AM Scheduled Provider:Lionel WHITNEY MD Location:[facility] [place] Appointment Type:URO Office Visit [facility] Evaluation + Plan note Future Appointments Appointment Date:03/09/2022 09:00:00 AM Scheduled Provider: Location:[facility] [place] Appointment Type:URO Nurse Visit Appointment Date:04/15/2022 09:00:00 AM Scheduled Provider: Location:[facility] [place] Appointment Type:URO Nurse Visit Appointment Date:09/21/2022 09:45:00 AM Scheduled Provider:Lionel WHITNEY MD Location:[facility] [place] Appointment Type:URO Office Visit Diagnostic Tests Pending * [facility]ments Appointment Date:04/15/2022 09:00:00 AM Scheduled Provider: Location:[facility] [place] Appointment Type:URO Nurse Visit Appointment Date:09/21/2022 09:45:00 AM Scheduled Provider:Lionel WHITNEY MD Location:[facility] [place] Appointment Type:URO Office Visit [facility] evaluation + Plan note Future Appointments Appointment Date:07/20/2022 10:00:00 AM Scheduled Provider: Location:[facility] [place] Appointment Type:URO Nurse Visit Appointment Date:08/17/2022 10:00:00 AM Scheduled Provider: Location:[facility] [place] Appointment Type:URO Nurse Visit Appointment Date:09/21/2022 09:45:00 AM Scheduled Provider:Lionel WHITNEY MD Location:[facility] [place] Appointment Type:URO Office Visit Diagnostic Tests Pending * UroVysion FISH ([facility]) [facility] App[facility]ments Appointment Date:08/17/2022 10:00:00 AM Scheduled Provider: Location:[facility] Appointment Type:URO Nurse Visit Appointment Date:09/21/2022 09:45:00 AM Scheduled Provider:Lionel WHITNEY MD Location:[facility] Appointment Type:URO Office Visit [facility] Evaluation + Plan note Future Appointments Appointment Date:09/22/2022 02:00:00 PM Scheduled Provider: Location:[facility] Appointment Type:Urology CALL PAT FT Appointment Date:09/29/2022 11:15:00 AM Scheduled Provider: Location:[facility] Appointment Type:Urology FT [facility] evaluation + Plan note Future Appointments Appointment Date:09/22/2022 02:00:00 PM Scheduled Provider: Location:[facility] Appointment Type:Urology CALL PAT FT Appointment Date:09/29/2022 11:15:00 AM Scheduled Provider: Location:[facility] Appointment Type:Urology FT Diagnostic Tests Pending * Urine Cytology ([facility]) 09/21/22 [facility] evaluation + Plan note Future Appointments Appointment Date:10/04/2023 10:15:00 AM Scheduled Provider:Lionel WHITNEY MD Location:[facility] Appointment Type:URO Office Visit Diagnostic Tests Pending * UroVysion Fish and Urine Cyto ([facility]) [facility] App[facility]ments Appointment Date:10/04/2023 10:15:00 AM Scheduled Provider:Lionel WHITNEY MD Location:[facility] Appointment Type:URO Office Visit General [facility] [place] Evaluation + Plan note Future Appointments Appointment Date:10/04/2023 10:15:00 AM Scheduled Provider:Lionel WHITNEY MD Location:[facility] Appointment Type:URO Office Visit Diagnostic Tests Pending * UroVysion Fish and Urine Cyto ([facility]) 04[facility]27[facility] App[facility]ments Appointment Date:10/20/2023 12:00:00 PM Scheduled Provider: Location:[facility] Appointment Type:Urology CALL PAT FT Appointment Date:10/26/2023 10:00:00 AM Scheduled Provider: Location:[facility] Appointment Type:Urology FT Appointment Date:10/09/2024 10:15:00 AM Scheduled Provider:Lionel WHITNEY MD Location:[facility] Appointment Type:URO Office Visit Diagnostic Tests Pending * PSA Total 10/04/23 [facility] evaluation + Plan note Future Appointments Appointment Date:10/09/2024 10:15:00 AM Scheduled Provider:Lionel WHITNEY MD Location:[facility] Appointment Type:URO Office Visit Diagnostic Tests Pending * UroVysion Fish and Urine Cyto ([facility]) [facility] information available [facility] Work Phone: Evaluation note* Diagnosis Onset Date Resolution Status Spinal stenosis of cervical region with radiculopathy acute Spinal stenosis of lumbar region with radiculopathy acute [facility] Work Phone: Evaluation note* Diagnosis Onset Date Resolution Status Spinal stenosis of cervical region with radiculopathy acute Spinal stenosis of lumbar region with radiculopathy acute Colonization status acute COPD (chronic obstructive pulmonary disease) acute [facility] Work Phone: History general Narrative - [...] KNEE SCOPE Surgical History L shoulder NAE -[facility] 2016 Hospitalization History FLU X2-3 DAYS Hospitalization History see surg. hx. [facility] Other Hospital course Narrative No data available for this section [facility] Hospital Discharge instructions No data available for this section [facility] progress note No data available for this section [facility] Chief Complaint and Reason for [...] Diagnosis 1 Cervical spondylosis (M47.812) [facility] Referring Provider First Name Zoran Referring Provider Last Name Scott Referring Provider Specialty Neurologica l Surgery Referred Organization [facility] Referred Address [address] [place], [place],[address] Referred Provider Specialty Physical The rapist Referral Priority Routine Reason evaluate and tr eat for neck and back pain Diagnosis 1 Cervical spondylosis (M47.812) Diagnosis 2 Low back pain, unspe cified (M54.50) Ref[facility] Referring Provider First Name Zoran Referring Provider Last Name Scott Referring Provider Specialty Neurologica l Surgery Referred Organization [facility] Referred Provider Raoul Soriano Referred Address [address], [place],[address] Referred Provider Specialty Pain Medicin e Referral [...] 2023 Team Status: Active Member Role Status hSawn Monterroso MD Primary Care Provider Active Start: August 12, 2023 LIDA Santoyo Attending Provider Active Start: August 12, 2023 Team Status: Inactive Member Role Status Shawn Monterroso MD Primary Care Provider Active Start: August 28, 2023 End: August 28, 2023 LIDA Santoyo Attending Provider Active Start: August 28, 2023 End: August 28, 2023 Team Status: Inactive Member Role Status Dates Yolande Monterroso MD Primary Care Provider Active Start: October 11, 2023 End: October 11, 2023 Qamar Aquino MD Attending Provider Active Sta rt: October 11, 2023 End: October 11, 2023 Team Status: Inactive Member Role Status Dates Yolande Monterroso MD Primary Care Provider Active Start: [...] content) DATE CREATED AUTHOR 11/27/2022 [facility] DATE CREATED AUTHOR AUTHOR'S ORGANIZ ATION 09/03/[address] [facility] DATE CREATED AUTHOR AUTHOR'S ORGANIZ ATION 10/01/2023 [facility] DATE CREATED AUTHOR AUTHOR'S ORGANIZ ATION 04/05/2024 [facility] DATE CREATED AUTHOR AUTHOR'S MAXIMILIAN ATION 04/15/2024 [facility] FOR RECORDS PERTAINING TO PATIENTS [...] BE BASED ON THE PRIMARY CLINICAL RECORDS. [facility] [employer] [facility]. provides no warranty or guarantee of the accuracy or completeness of information in this document.
== END 2024-04-19 08:48 | disposition home or self-care (01) ==
LOC: PM 08:47
PROVIDERS: PCP Family Medicine; Visit Provider Nurse Practitioner
DX: M48.062 Spinal stenosis, lumbar region with neurogenic claudication (principal); M46.1 Sacroiliitis, not elsewhere classified; M19.011 Primary osteoarthritis, right shoulder; M47.812 Spondylosis without myelopathy or radiculopathy, cervical region; Z79.891 Long term (current) use of opiate analgesic; M62.838 Other muscle spasm; M96.1 Postlaminectomy syndrome, not elsewhere classified; M47.816 Spondylosis without myelopathy or radiculopathy, lumbar region
CPT/HCPCS: G0463

== ENCOUNTER 2024-05-23 12:25 | Outpatient (OUT) | payer MEDICARE, SELFPAY ==
--- OUTSIDE RECORDS SUMMARY | 2024-05-23 12:41 | XMS_ITS | CCD ---
Author Organization [facility] Care Team Providers Care Mold Mechanic Name Role Phone MD Yolande Monterroso Primary Care Provider [phone] MD Lionel Whitney Attending Provider [phone] Yolande Monterroso Primary Care Physician Leidy Plummer Unavailable Unavailable MD Yolande Monterroso Primary Care Provider [phone] MD Lionel Whitney Attending Provider Zoran Chavez Unavailable DR NELLY HERRERA Admitting Unavailable ABBAS, DR VILLEGAS Attending Unavailable [...] LANIER Primary Care Unavailable WHITNEY ., DR FLOEWRS Consulting Unavailable WHITNEY ., DR FLOWERS Admitting Unavailable WHITNEY ., DR FLOWERS Attending Unavailable SCOTT, DR MEEHAN Admitting Unavailable DR ZORAN CHAVEZ Attending Unavailable SEBASTIAN, DR ALLI Burgos Consulting Unavailable HOY ., DR LANIER Primary Care Unavailable JAMAICA GONZLAEZ Consulting Unavailable DR ZORAN CHAVEZ Consulting Unavailable [...] Unavailable HOY ., DR LANIER Admvidya Unavailable DEBORAH ZARAGOZA Consulting Unavailable HOY ., DR LANIER Consulting Unavailable HOY ., DR LANIER Admvidya Unavailable HOY ., DR LANIER Primary Care Unavailable HOY ., DR LANIER Attending Unavailable SOCORRO HUFFMAN Consulting Unavailable WHITNEY ., DR FLOWERS Consulting [...] Unavailable MD Yolande Monterroso Primary Care Provider MD Zoran Chavez Attending Provider [phone] MD Yolande Monterroso Primary Care Provider [phone] LIDA Lowery Attending Provider Yolande Monterroso Primary Care Unavailable Esther Lowery Admitting Unavailable Esther Lowery Attending Unavailable Yolande Monterroso Primary Care Unavailable Esther Lowery Admitting Unavailable Esther Lowery Attending Unavailable Yolande Monterroso Primary Care Unavailable Zoran Chavez Admitting Unavailable Zoran Chavez Attending Unavailable VASU GALEANO Attending Unavailable KELLY ORTIZ Attending Unavailable MD Yolande Monterroso Primary Care Provider [phone] LIDA Lowery Attending Provider Syeda NOBLE, Tamiko Kilgore Attending Unavailable Syeda NOBLE, Tamiko Kilgore Attending Unavailable Syeda NOBLE, Tamiko Kilgore Attending Unavailable Yolande Monterroso MD Primary Care Provider WHITNEY, Lionel R Referring Unavailable WHITNEY, Lionel R Admitting Unavailable WHITNEY, Lionel R Attending Unavailable WHITNEY, Lionel R Attending Unavailable WHITNEY, Lionel R Attending Unavailable WHITNEY, Lionel R Attending Unavailable WHITNEY, Lionel R Attending Unavailable WHITNEY, Lionel R Attending Unavailable WHITNEY, Lionel R Referring Unavailable WHITNEY, Lionel R Admitting Unavailable CADY ESPINOSA Attending Unavailable YOLANDE MONTERROSO Primary Care Unavailable CADY ESPINOSA Referring Unavailable WHITNEY, Lionel R Attending Unavailable WHITNEY, Lionel R Attending Unavailable WHITNEY, Lionel R Admitting Unavailable Allergies Allergy Classification Reported Allergen(s) Allergy Type Date of Onset Reaction(s) Facility (10 sources) Acetaminophen; 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: [acetaminophen] Drug Allergy 0 Itching, Itching agitated, Itching agitated, aggitation [facility] (20 sources) Codeine; 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: [Codeine] Drug Allergy 4 rash, Agitation [facility] (11 sources) oxyCODONE; 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: [oxycodone] Drug Allergy 0 Itching, agitated, Itching, agitated, aggitation [facility] (16 sources) Acetaminophen / oxyCODONE; 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: [acetaminophen-oxyc odone] Drug Allergy aggitation [facility] James Comment on above: pt states this does not work for pt, pt is not allergic to vicodin (6 sources) cyclobenzaprine Drug Allergy 4 itching [facility] (6 sources) HYDROcodone Drug Allergy 4 anxiety [facility] (6 sources) tiZANidine Drug Allergy 4 hives [facility] (4 sources) Acetaminophen / HYDROcodone; 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: [Vicodin] Drug Allergy [facility] Repository (2 sources) Acetaminophen / oxyCODONE Drug Allergy [facility] Rep[facility] (1 source) atorvastatin Drug Allergy [facility] Rep[facility] (2 sources) tiZANidine Drug Allergy [facility] (1 source) cyclobenzaprine Drug Allergy 4 [facility] Repository (1 source) HYDROcodone Drug Allergy 4 [facility] Repository (1 source) tiZANidine Drug Allergy 4 [facility] Repository (2 sources) Acetaminophen / oxyCODONE; 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: [Percocet 5/325] Drug Allergy [facility] Repository Medications Current Medications Medication Drug Class(es) Dates Sig (Normalized) Sig (Original) acetaminophen 325 mg / HYDROcodone bitartrate 5 mg oral tablet (7 sources) Opioid Agonist Start: 08-12-2023 take 1 tablet by mouth every twenty-four hours as needed HYDROcodone-aceta minophen ([place]) 5-325 mg tablet Take 1 tablet by mouth once daily as needed for severe pain (7 - 10). 08/12/2023 Active Start: 08-12-2023 Hydrocodone-Ac etaminophen Active 1 TAB PO August 12, 2023 [...] Start: 09-19-2021 take 2 tablets by mo [facility] twice daily carvedilol 6.25 mg Tab 12.5 mg = 2 tab(s), Oral, BID, Refills(s) 0 Start Date: 09/19/21 Status: Ordered Start: 09-19-2021 carvedilol 6.2 5 mg Tab Refills(s) 0 Start Date: 09/19/21 Status: Ordered take 1 tablet by barry every twelve hours Carvedilol 12.5 MG 1 tablet with food Orally Twice a day Active colchicine 0.6 mg oral tablet (7 sources) Start: 02-03-2023 take 1 tablet by [...] 07, 2019 1:00am April 19, 2020 8:04am Zirhgvjgfbh-Tluwsuukd-Nuxhwk er (11 sources) Anticholinergic, Corticosteroid, beta2-Adrenergic Agonist Start: 08-07-2019 Ouwvtfycjoh-Vdadcoqet-Crwwzt er (Trelegy Ellipta) 100-62.5-25 mcg Blister With Device Active 1 INH INHALATION Daily August 07, 2019 3:01pm Start: 08-07-2019 Fluticasone-Um eclidin-Vilanter (Trelegy Ellipta) 100-62.5-25 mcg Blister With Device Active 1 INH INHALATION Daily August 07, 2019 12:00am Start: 08-07-2019 Fluticasone-Um eclidin-Vilanter (Trelegy Ellipta) 100-62.5-25 mcg Blister With Device Active 1 INH INHALATION Daily August 07, 2019 1:00am take 1 puff(s) by inhalation in the morning Trelegy Ellipta 100-62.5-25 mcg blister with device Inhale 1 puff early in the morning.. Active hydroCHLOROthiazide 12.5 mg / lisinopril 20 mg oral tablet (1 source) Thiazide Diuretic, Angiotensin Converting Enzyme Inhibitor Start: 05-08-2024 End: 05-08-2025 take 1 tablet by mouth once daily lisinopriL-hydrochlorothiazide 20-12.5 mg tablet Indications: Uncontrolled hypertension Take 1 tablet by mouth once daily. 90 tablet 1 05/08/2024 05/08/2025 Active liothyronine (8 sources) l-Triiodothyr onine Start: 10-11-2023 take 25 ug by mouth once daily Liothyronine Active 25 MCG PO Daily October 11, 2023 12:00am Start: 10-04-2023 take 0.5 tablet by m outh once daily liothyronine (Cytomel) 25 mcg tablet Take 0.5 tablets (12.5 mcg) by mouth once daily. 10/04/2023 Active Start: 10-04-2023 liothyronine 2 5 mcg Tab Refills(s) 0 Start Date: 10/04/23 Status: Ordered lisinopril 20 mg oral tablet (14 sources) Angiotensin Converting Enzyme Inhibitor Start: 05-04-2024 take 1 tablet by mouth once daily lisinopril 20 mg tablet Take 1 tablet (20 mg) by mouth once daily. 05/04/2024 Active Start: 06-22-2017 End: 10-17-2021 take 40 mg by mouth at bedtime Lisinopril Discontinued 40 MG PO Bedtime August 07, 2019 1:00am October 17, 2021 12:24pm methocarbamol 500 mg oral tablet (3 sources) Muscle Relaxant Start: 04-21-2023 take 500 mg by mouth once daily [...] pantoprazole 40 mg delayed release oral tablet (14 sources) Proton Pump Inhibitor Start: 08-12-19 Pantoprazole Active MG PO August 12, 2023 1:00am Start: 10-18-2022 take 1 tablet by barry th once daily Pantoprazole [address] Tab 40 mg = 1 tab(s), Oral, Daily, Refills(s) 0 Start Date: 02/03/23 Status: Ordered rosuvastatin calcium 20 mg oral tablet (1 source) HMG-CoA Reductase Inhibitor Start: 05-08-2024 End: 11-04-2024 take 1 tablet by mouth once daily rosuvastatin (Crestor) 20 mg tablet Indications: Mixed hyperlipidemia Take 1 tablet (20 mg) by mouth once daily. 90 tablet 1 05/08/2024 11/04/2024 Active TENS Unit (2 sources) Start: 09-08-2019 [...] Ellipta 100 mcg-62.5 mcg-25 mcg inhalation powder (7 sources) Start: 02-03-2023 take 1 puff(s) by [...] 2022 12:00am ciprofloxacin 500 mg oral tablet (13 sources) Quinolone Antimicrobial Start: 04-13-2024 take 1 tablet by mouth once daily Cipro 500 mg Tab 500 mg = 1 tab(s), Oral, Daily, Take 1 tablet the day before the procedure and 1 tablet after the procedure, # 2 tab(s), Refills(s) 0, Pharmacy: [facility]/pharmacy #[id number], 170, cm, 10/26/23 11:14:00 EDT, Height/Length Dosing, 84, kg, 10/04/23 10:36:00 EDT, Weight Dosing Start Date: 04/13/24 Status: Ordered Start: 01-20-2023 take 1 tablet by barry th once daily Cipro 500 mg Tab 500 mg = 1 tab(s), Oral, Daily, take one tab day before procedure and one tab after procedure, # 2 tab(s), Refills(s) 0, Pharmacy: [facility]/pharmacy #[id number], 170, cm, 01/20/23 10:45:00 EDT, Height/Length Dosing, 83.5, kg, 01/20/23 10:45:00 EDT, Weight Dosing Start Date: 01/20/23 Status: Ordered Start: 12-31-2022 take 1 tablet by barry th once daily Cipro 500 mg Tab 500 mg = 1 tab(s), Oral, Daily, Take 1 tablet the day before the procedure and 1 tablet after the procedure, # 6 tab(s), Refills(s) 0, Pharmacy: [facility]/pharmacy #[id number], 170, cm, 09/22/22 12:23:00 EDT, Height/Length Dosing, 78, kg, 02/24/22 10:53:00 EDT, W... Start Date: 12/31/22 Status: Ordered Start: 07-02-2022 take 1 tablet by barry th once daily Cipro 500 mg Tab 500 mg = 1 tab(s), Oral, Daily, Take 1 tablet the day before the procedure and 1 tablet after the procedure, # 6 tab(s), Refills(s) 0, Pharmacy: [facility]/pharmacy #[id number], 170, cm, 02/24/22 10:53:00 EDT, [...] # 2 tab(s), Refills(s) 0, Pharmacy: [facility]/pharmacy #[id number], 170, cm, 11/05/21 11:37:00 EDT, [...] PO Four times daily 40 10 April 19, 2020 12:00am October 17, 2021 12:30pm doxycycline hyclate 100 mg oral capsule (1 source) Tetracycline-class Drug Start: 04-12-2023 take 1 capsule by mouth twice daily doxycycline hyclate 100 mg Cap 100 mg = 1 cap(s), Oral, BID, Take 1 capsule the day before the procedure and 1 capsule after the procedure, # 2 cap(s), Refills(s) 0, Pharmacy: [facility]/pharmacy #[id number], 188, cm, 02/10/23 14:22:00 EDT, Height/Length Dosing, 82.9, kg, 02/10/23 14:22:00 EDT, Weight Dosing Start Date: 04/12/23 Status: Ordered irbesartan 300 mg oral tablet (20 sources) Angiotensin 2 Receptor Boogie Start: 10-17-2021 End: 02-06-2022 take 300 mg by mouth once daily at bedtime Irbesartan Discontinued 300 MG PO Daily at bedtime October 17, 2021 12:00am February 06, 2022 2:19pm levothyroxine sodium 0.025 mg oral tablet (1 source) l-Thyroxine End: 05-08-2024 take 0.5 tablet by mouth in the morning levothyroxine (Synthroid, Levoxyl) 25 mcg tablet Take 0.5 tablets (12.5 mcg) by mouth early in the morning.. 05/08/2024 Discontinued (Therapy completed) lidocaine 0.05 mg/mg medicated patch (4 sources) Antiarrhythmic, Amide Local Anesthetic Start: 08-12-2023 End: 10-11-2023 apply 1 dose topically once daily Lidocaine Discontinued 1 PATCH TOPICAL Daily August 12, 2023 1:00am October 11, 2023 3:26pm leave on most painful area for up to 12 hrs losartan potassium 100 mg oral tablet (8 [...] 2021 12:31pm sildenafil 100 mg oral tablet (20 sources) Phosphodiesterase 5 Inhibitor Start: 10-04-2023 take 1 tablet by mouth every twenty-four hours sildenafil 100 mg Tab 100 mg = 1 tab(s), Oral, As Directed, Take 1 tablet 1 hr prior to sexual activity as needed. Don't exceed 1 tab (100 mg) in a 24 hr period., # 30 tab(s), Refills(s) 3, Pharmacy: [id number], 170, cm, 10/04/23 10:36:00 EDT, [...] period., # 30 tab(s), Refills(s) 3, Pharmacy: [id number], 170, cm, 02/24/22 10:53:00 EDT, Height/Length Dosing, 78, kg, 02/24/22 10:53:00 EDT, Weight Dosing Start Date: 07/05/22 Status: Ordered Start: 09-19-2021 sildenafil 100 mg Tab 100 mg = 1 tab(s), Oral, Daily, Take 1 pill 30 minutes prior to sexual relations, # 30 tab(s), Refills(s) 3, Pharmacy: [id number], 170, cm, 09/19/21 10:16:00 EDT, Height/Length Dosing, 78, kg, 09/19/21 10:16:00 EDT, Weight Dosing Start Date: 09/19/21 Status: Ordered Problems Active Problems Problem Classification Problem Date Documented Da te Episodic/Chronic Abdominal hernia (20 sources) Umbilical hernia 06-08-2017 Episodic Acute and [...] unspecified] Onset: 2 Chronic Cancer of bladder (10 sources) Personal history of malignant neoplasm of bladder; 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: [History of malignant neoplasm of bladder] Onset: 3 Episodic Cancer of prostate (20 sources) Malignant tumor of prostate 08-22-2014 Chronic Comment on above: just had a surgery d one radical prostectomy at [facility] Cancer of prostate (20 sources) Personal history of malignant neoplasm of prostate; 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: [History of malignant neoplasm of prostate] Onset: 2 Episodic Cancer; other and unspecified primary (5 sources) H/O: malignant neoplasm 10-04-2023 Episodic Chronic obstructive pulmonary disease and bronchiectasis (10 sources) Chronic obstructive lung disease; 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: [Chronic obstructive pulmonary disease, unspecified] 02-03-2023 Chronic Deficiency and other anemia (8 sources) Iron deficiency anemia; 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: [Iron deficiency anemia, unspecified] Onset: 3 Episodic Disorders of lipid metabolism (4 sources) Mixed hyperlipidemia; 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: [Mixed hyperlipidemia] Onset: 4 05-08-2024 Chronic Esophageal disorders (20 sources) Gastroesophageal reflux disease; 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: [Gastro-esophageal reflux disease without esophagitis] Onset: 3 08-22-2014 Chronic Essential hypertension (20 sources) Hypertensive disorder; 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: [Essential hypertension] Onset: 2 08-22-2014 Chronic Fluid and electrolyte disorders (1 source) Hypokalemia; 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: [HYPOKALEMIA] Onset: 3 Episodic Gout and other crystal arthropathies (20 sources) Primary gout; 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: [Other chondrocalcinosis, right [...] site] Onset: 2 Chronic Other acquired deformities (20 sources) Spondylolisthesis; 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: [Spondylolisthesis, cervical region] 04-19-2020 Episodic Other acquired deformities (2 sources) Acquired spondylolisthesis; 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: [Spondylolisthesis, cervical region] Episodic Other aftercare (3 sources) Other shelter (current) drug therapy; 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: [OTH SENIOR CARE CURRENT DRUG THERAPY] Onset: 3 Episodic Other aftercare (2 sources) Treatment changed; 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: [Other terminal operations manager (current) drug therapy] Onset: 4 05-08-2024 Episodic Other and unspecified benign neoplasm (8 sources) History of polyp of colon; 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: [Personal history of colonic polyps] Onset: 3 Episodic Other circulatory disease (20 sources) Ecchymosis 05-06-2017 Episodic Comment on above: left leg from [place] ankle- box with snowblower in it slipped off a cart and banged his leg. Foot pink and dry with immediate capillary refill, 4t pedal and poterior tibial pulses. Other circulatory disease (6 sources) Other specified symptoms and signs involving the circulatory and respiratory systems; 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: [OTH SPEC SX SIGNS INVLV CIRC RS] Onset: 3 Episodic Other circulatory disease (2 sources) Unequal blood pressure in arms; 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: [Other specified symptoms and signs involving the circulatory and respiratory systems] Onset: 4 05-08-2024 Episodic Other circulatory disease (1 source) Carotid bruit; Translations: [Other specified symptoms and signs involving the circulatory and respiratory systems] Onset: 4 05-08-2024 Episodic Other connective tissue disease (20 sources) Impingement syndrome of shoulder region 05-06-2017 Episodic Other connective tissue disease (2 sources) Other symptoms and signs involving the nervous system Episodic Other gastrointestinal disorders (8 sources) Altered bowel function; Translations: [Change in bowel habit] Onset: 3 Episodic Other injuries and conditions due to external causes (2 sources) H/O: fracture; Translations: [Personal history of (healed) traumatic fracture] Onset: 4 05-08-2024 Episodic Other injuries and conditions due to external causes (2 sources) Personal history of (healed) traumatic fracture; Translations: [Personal history of (healed) traumatic fracture] Onset: 4 Episodic Other lower respiratory disease (1 source) Other forms of dyspnea; Translations: [OTHER FORMS OF DYSPNEA] Onset: 3 Episodic Other lower respiratory disease (5 sources) Dyspnea; Translations: [Shortness of breath] Onset: 4 05-08-2024 Episodic Other lower respiratory disease (1 source) Shortness of breath; Translations: [Shortness of breath] Onset: 4 Episodic Other male genital disorders (4 sources) Secondary erectile dysfunction; Translations: [Erectile dysfunction following radical prostatectomy] Onset: 2 Chronic Other male genital disorders (20 sources) Erectile dysfunction following radical prostatectomy 07-07-2019 Chronic Other nervous system disorders (4 sources) Neuralgia/neuritis - ankle/foot; Translations: [Unspecified mononeuropathy of left lower limb] Chronic Other nervous system disorders (4 sources) Chronic pain; Translations: [Other chronic pain] Chronic Other nervous system disorders (2 sources) Other chronic pain Chronic Other nervous system disorders (2 sources) Paresthesia; Translations: [Paresthesia of skin] Episodic Other nutritional; endocrine; and metabolic disorders (2 sources) Overweight in adulthood with body mass index of 25 or more but less than 30; Translations: [Body mass index (BMI) 25.0-25.9, adult] Onset: 4 05-08-2024 Episodic Other nutritional; endocrine; and metabolic disorders (2 sources) Body mass index (BMI) 25.0-25.9, adult; Translations: [Body mass index (BMI) 25.0-25.9, adult] Onset: 4 Episodic Peripheral and visceral atherosclerosis (1 source) Peripheral vascular disease, unspecified; Translations: [PERIPHERAL VASCULAR DISEASE UNS] Onset: 3 Chronic Pneumonia (except that caused by tuberculosis or sexually transmitted disease) (1 source) Pneumonia, unspecified organism; Translations: [PNEUMONIA UNSPECIFIED ORGANISM] Onset: 3 Episodic Screening and history of mental health and substance abuse codes (6 sources) Personal history of nicotine dependence; Translations: [Ex-smoker] Onset: 3 05-08-2024 Episodic Septicemia (except in labor) (1 source) [...] W/AND (SUSP) EXPOS COVID-19] Onset: 3 Unclassified (7 sources) Body mass index 20-24 - normal [...] COUGH, UNSPECIFIED; Translations: [COUGH, UNSPECIFIED] Onset: 10-05-2022 Unclassified (1 source) Onset: 05-08-2024 05-08-2024 Urinary tract infections (4 sources) Urinary tract infection, site not specified; Translations: [UTI SITE NOT SPECIFIED] Onset: 03-12-2022 Episodic Results Test Name Value Interpretation Reference Range Facility [facility] ([facility])on 05-15-2024 [facility] Diagnosis Info Invalid Interpretation Code [facility] Comment on above: Result Comment: Rodrick huggins Description Electronically signed by : on: 05/15/2024 11:58:17 Performed By: #### 1 [id number] #### [facility] [address] [place] [address] Main OR Intraoperative Recor don 05-09-2024 Main OR Intraoperative Record Main OR Intraoperative Record IntraOp Document Type FTURO Summary Primary Physician: Lionel WHITNEY MD Finalized Date/Time: 05/09/24 09:43:24 Pt. Name: MARY DIAZ/Sex: 1950 Male Med Rec #: [id number] Physician: Lionel WHITNEY MD Financial #: [id number] Pt. Type: O Room/Bed: / Admit/Disch: 05/09/24 08:45:25 - Institution: Case Times FTURO Entry 1 Patient Times In Room 05/09/24 09:25:00 Out Room 05/09/24 09:42:00 Procedure Times Start 05/09/24 09:33:00 Stop 05/09/24 09:37:00 Anesthesia Times Last Modified By: Fitz ZELAYA, Frances Bellamy 05/09/24 09:40:32 Case Attendance FTURO Entry 1 Entry 2 Entry 3 Case Attendee DEVONTE NOBLE, Lionel Byrnes RN, Frances Baig CST, Nanci Bellamy Role Performed Surgeon - Primary Sand Mill Operator Facing Sand - Primary Scrub - Primary Time In 05/09/24 09:33:00 05/09/24 09:25:00 05/09/24 09:25:00 Time Out 05/09/24 09:42:00 05/09/24 09:42:00 05/09/24 09:42:00 Procedure CYSTOSCOPY LOCAL(.) CYSTOSCOPY LOCAL(.) CYSTOSCOPY LOCAL(.) Comments Last Modified By: Fitz ZELAYA, Frances Byrnes RN, Frances Byrnes RN, Frances Bellamy 05/09/24 Carol P 05/09/24 Carol P 05/09/24 09:40:33 09:40:33 09:40:33 Surgical Procedures FTURO Entry 1 Procedure Description Procedure CYSTOSCOPY LOCAL Modifiers . Surgeon Description CYSTOSCOPY WITH FISH & CYTOLOGY Primary Procedure Yes Primary Surgeon Lionel WHITNEY MD Start 05/09/24 09:33:00 Stop 05/09/24 09:37:00 Anesthesia Type Local Surgical Service Urology Wound Class 2 - Clean-Contaminated Last Modified By: Fitz ZELAYA, Frances Bellamy 05/09/24 09:38:22 General Case Data FTURO Pre-Care Text: Classifies surgical wound, implements aseptic technique, initiates traffic control Entry 1 Case Information OR URO 1 FT Case Level None Wound Class 2 - Clean-Contaminated Specialty Urology Preop Diagnosis HISTORY OF BLADDER AND Postop Same As Preop Yes PROSTATE CANCERS Postop Diagnosis HISTORY OF BLADDER AND Outcomes Met? Yes PROSTATE CANCERS Last Modified By: Fitz ZELAYA, Frances Bellamy 05/09/24 09:26:44 Post-Care Text: The patient is free from [...] 2): Participation Consents / H and P H&P, Surgery/Procedure Operative Site N/A Verified Consent Marking Verified Surgical Site Yes Laterality Verified Yes Verified Procedure Verified Yes Correct Patient Yes Position Verified Availability Equipment, Medication Time Out Lionel WHITNEY MD, Verified (If Participants Fitz ZELAYA, Frances Applicable) Carol Bellamy, Nanci Baig CST Time Out Complete 05/09/24 09:33:00 Allergies Reviewed? Yes Allergies Reviewed Self/Patient With Body Position Supine Prep Area PENIS Prep Agents Betadine Solution Skin. Condition Unable to Visualize Description PARTIALLY CLOTHED AND DRAPED Additional FISH Specimens Comment AND CYTOLOGY Specimens Collected Vitals - EU Blood Pressure 190/90 Pulse 78 bpm Respirations 18 br/min SPO2 97 % I&O - EU Outcomes Met? Yes Last Modified By: Frances Byrnes RN 05/09/24 09:33:07 Post-Care Text: The patient is free from signs and symptoms of injury caused by extraneous objects Sign Out FTURO Entry 1 Before Patient Leaves OR Nurse verbally Yes Nurse verbally Yes confirms [...] name), if applicable addressed Sign Out Complete 05/09/24 09:38:00 Last Modified By: Frances Byrnes RN 05/09/24 09:38:20 Case Comments Finalized By: Frances Byrnes RN Document Signatures Signed By: Frances Byrnes RN 05/09/24 09:43 Normal [facility] Main OR Preoperative Recordo n 05-09-2024 Main OR Preoperative Record Main OR Preoperative Record Holding Area Document Type FTURO Summary Primary Physician: Lionel WHITNEY MD Finalized Date/Time: 05/09/24 09:28:03 Pt. Name: MARY DIAZ/Sex: 1950 Male Med Rec #: [id number] Physician: Lionel WHITNEY MD Financial #: [id number] Pt. Type: O Room/Bed: / Admit/Disch: 05/09/24 08:45:25 - Institution: Case Times Holding FTURO Pre-Care Text: Verifies consent for planned procedure, identifies individual values and wishes concerning care, includes family members in perioperative teaching Secures patient's records' belongings, and valuables, maintains patient's dignity and privacy, and maintains patient confidentiality Entry 1 In Holding 05/09/24 09:01:00 Outcomes Met? Yes Last Modified By: Esther Boyd LPN 05/09/24 09:01:25 Post-Care Text: The patient participates in decisions affecting his or her perioperative plan of care The patient's right to privacy is maintained Surgery Checklist FTURO Entry 1 Patient Birthday, ID Band Procedure Surgical Consent, With Identification: Check, Patient Verification: Patient Participation NPO after Midnight: n/a Personal Items: Glasses Personal Items b/l hearing aides Limitations: up ad abiodun Comment: Complaints of Pain: No Skin Integrity Intact, [place], Warm, & Dry Vitals - EU Blood Pressure 190/90 Pulse 78 bpm Respirations 18 br/min SPO2 96 % Additional JIM RN Reviewed Yes Specimens Collected Last Modified By: Frances Byrnes RN 05/09/24 09:28:01 Finalized By: Frances Byrnes RN Document Signatures Signed By: Esther Boyd LPN 05/09/24 09:10 Frances Byrnes RN 05/09/24 09:28 Normal [facility] Operative Reporton Operative Report Operative Report Patient: MARY DIAZ Age: 74 years Sex: Male : 1950 Associated Diagnoses: None Author: Lionel WHITNEY MD Procedure Operative Information Details: Date/ Time: 05/09/2024 09:47:00. Pre-Op Dx: Hx of Bladder CA - [...] Urethra is: Absent prostate. 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 Approximately 3 cm of lesions. Also flame red flat areas near the dome.. The ureteral orifices: Show efflux of clear urine. Devices Implanted: None. Removal: Cystoscope is removed, The patient tolerated it well. Postoperative Information Discharge: Patient is discharged home with antibiotic coverage, Follow up arranged. Normal [facility] Comment on above: Result Comment: Elec tronically Signed By: DEVONTE NOBLE, Lionel Ernandez\Date and Time Signed: 05/09/24 09:48 EST UroVysion Fish and Urine Cyt o ([facility])on 05-09-2024 [facility] Method of Extraction Voided Normal [facility] Comment on above: Performed By: #### 1 [id number] #### [facility] [address] [place] [address] [facility] Number of Jars 1 Invalid Interpretation Code [facility] Comment on above: Performed By: #### 1 [id number] #### [facility] [address] [place] [address] [facility] Specimen Urine Normal [facility] Comment on above: Performed By: #### 1 [id number] #### [facility] [address] [place] [address] [facility] Type of Service Technical Only Normal [facility] Comment on above: Performed By: #### 1 [id number] #### [facility] [address] [place] [address] ECG 12 Leadon 05-08-2024 [facility] Work Phone: Reminderson 04-13-2024 Reminders Reminders From: Loretta Simons To: EU - Recalls Devonte; Sent: 04/13/2024 11:42:40 EDT Show up: 08/19/2024 11:42:00 EST Subject: Cysto/Needs FISH/cytol Due Date/Time: 09/11/2024 11:42:00 EDT Reminder/Recall Patient is due in October 2024 for 6 month cysto/fish/cytol, bt ck Normal [facility] Reminders Reminders From: Loretta Simons To: EU - Recalls Whitney; Cc: Loretta Simons; Sent: 06/28/2023 10:52:09 EST Show up: 09/20/2023 10:52:00 EDT Subject: Cysto/6 mo Due Date/Time: 10/11/2023 10:52:00 EDT Reminder/Recall Patient is due in October 2023 for 6 month cysto/fish/cytol, PSA (bt ck) Spoke to pt, sched for 10/26/23 at [facility]. LG Patient will be due in Apr 2024 for 6 month cysto/fish/cytol (bt ck) Spoke to pt, sched for 05/09/24 at [facility].LG Normal [facility] Patient Educationon 11-26-19 Patient Education Urology [...] including vitamins, herbs, eye drops, creams, and wbda-chz-ecwcrmr medicines. ? Any problems you or family [...] tells you to take them. ? Taking uzqi-uqg-hvybloe medicines, vitamins, herbs, and supplements. General instructions [...] health c (more content not included)... Normal [facility] UroVysion Fish and Urine Cyt o ([facility])on 11-02-2023 [facility] Diagnosis Info Invalid Interpretation Code [facility] Comment on above: Result Comment: [...] on: 11/02/2023 10:22:27 Performed By: #### 1 [id number] ####[facility] [address] [place] [address] Consent for Procedure/Surger yon 10-26-2023 Consent for Procedure/Surgery [id number]# 1.00TIFF [facility] Consent for Treatmenton Consent for Treatment [id number] .00TIFF [facility] IntraOperative Documentson 0 10-26-2023 IntraOperative Documents [id number] 1.00TIFF [facility] Main OR Intraoperative Recor don 10-26-2023 Main OR Intraoperative Record IntraOp Document Type FTURO Summary Primary Physician: Lionel WHITNEY MD Finalized Date/Time: 10/26/23 11:57:52 Pt. Name: EMILYMARY/Sex: 1950 Male Med Rec #: [id number] Physician: Lionel WHITNEY MD Financial #: [id number] Pt. 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 Condition Intact, [place], Warm, and Description REDDED DOTS ON Dry, [...] 10/26/23 11:57 Fabiana Galaviz 10/26/23 11:57 Normal [facility] Main OR Preoperative Recordo n 10-26-2023 Main OR Preoperative Record Holding Area Document Type FTURO Summary Primary Physician: Lionel WHITNEY MD Finalized Date/Time: 10/26/23 11:16:48 Pt. Name: MARY DIAZ/Sex: 1950 Male Med Rec #: [id number] Physician: Lionel WHITNEY MD Financial #: [id number] Pt. Type: O Room/Bed: / Admit/Disch: 10/26/23 [...] 11:11 Nanci Cortes RN 10/26/23 11:16 Normal [facility] Operative Reporton Operative Report Patient: [...] with antibiotic coverage, Follow up arranged. Normal [facility] Comment on above: Result Comment: Elec tronically Signed By: DEVONTE NOBLE, Lionel Burgos\.br\Date and Time Signed: 10/26/23 11:58 EDT Outpatient Surgery Discharge Instructionon 10-26-2023 Outpatient Surgery Discharge Instruction [id number]# 1.00TIFF Normal [facility] UroVysion Fish and Urine Cyt o ([facility])on 10-26-2023 [facility] Method of Extraction Voided Normal [facility] Comment on above: Performed By: #### 1 [id number] ####[facility] [address] [place] [address] [facility] Number of Jars 1 Invalid Interpretation Code [facility] Comment on above: Performed By: #### 1 [id number] ####[facility] [address] [place] [address] [facility] Specimen Urine Normal [facility] Comment on above: Performed By: #### 1 [id number] ####[facility] [address] [place] [address] [facility] Type of Service Technical Only Normal [facility] Comment on above: Performed By: #### 1 [id number] ####[facility] [address] [place] [address] Ambulatory Visit Summaryon 0 10-04-2023 Ambulatory Visit [...] Wednesday. 2023 12:00 PM EDT With: Where: [facility] Wednesday 10:00 AM EDT With: Where: [facility] Wednesday 10:15 AM EDT With: Lionel WHITNEY MD Where: [facility] Patient Educationon 10-04-19 Patient Education Oncology [...] if anything looks unusual. Men with a yjowiy-ducj-nnjiwo risk for skin cancer may want to see a skin drier (brake holder) for an annual body check. What are the benefits of screening? Cancer screening is done to look for cancer in the very early stages, before it spreads and becomes harder to treat and before you would start to notice symptoms. Finding cancer early improves the chances of successful treatment. It ma (more content not included)... Normal [facility] Urology Office/Clinic Noteon 10-04-2023 Urology [...] [facility] [address], [place] [address]- [phone] Additional Instructions: 1 yr w/ PSA Patient [...] inhalation po (more content not included)... Normal [facility] Comment on above: Result Comment: Elec tronically Signed By: Lionel WHITNEY MD\.br\Date and Time Signed: 10/04/23 11:16 EDT\.br\Electronically Co-Signed By: Lilo Zhou\.br\Date and Time Co-Signed: 10/04/23 11:14 EDT Lab Reportson 09-22-2023 Lab Reports [id number] .00TIFF [facility] MR cervical spine wo/w conon 08-29-2023 MR cervical spine wo/w con [facility] [place] [address] MRI Report Signed Patient: Mary Diaz MR#: [id number] : 1950 Acct:[id number] Age/Sex: 73 / M ADM Date: 08/28/23 Loc: MR Room: Type: [facility] Attending Dr: Esther HILTON Copies [...] Lupe Campos M.D.08/29/2023 1:06 PM Dictation Location: [place] [address] Transcribed By: [facility] 08/29/23 1306 Dictated By: Lupe Campos MD 08/29/23 1254 Signed By: 08/29/23 1306 Normal [facility] Creatinine (Bld) [Mass/Vol]O rdered By: Esther Lowery on 08-28-2023 Creatinine [Mass/Vol] 1.2 mg/dL 0.6-1.3 [facility] Comment on above: ER/ESD physician is notified/shown all ISTAT results.Critical values may be confirmed by laboratory testing ifdeemed necessary by ER attending doctor. ISTAT XRay CREon 08-28-2023 Creatinine [Mass/Vol] 1.2 mg/dL Normal 0.6-1.3 [facility] Comment on above: Result Comment: ER/E SD physician is notified/shown all ISTAT results. Critical values may be confirmed by laboratory testing if deemed necessary by ER attending doctor. Performed By: #### I SCRE #### [address] ISTAT GFR > 60.0 [facility] Comment on above: Result Comment: PERF ORMED BY: [place] [address] PATHOLOGIST REGISTERED NURSE HH CASE MANAGER JENARO FLOREZ M.D. Performed By: #### I SCRE #### [facility] [address] [place] [address] No Panel InformationOrdered By: Esther Lowery on 08-28-2023 Bedside Estimated GFR (eGFR) > 60.0 [facility] XR cervical spine LAT/FLX/EX Ton 08-12-2023 XR cervical spine LAT/FLX/EXT [facility] [place] [address] XRay Report Signed Patient: Mary Diaz MR#: [id number] : 1950 Acct:[id number] Age/Sex: 73 / M ADM Date: 08/12/23 Loc: XD Room: Type: [facility] Attending Dr: Esther HILTON Copies to: [...] Kenny Leahy M.D.08/12/2023 3:29 PM Dictation Location: [place] [address] Transcribed By: [facility] 08/12/23 1529 Dictated By: Kenny Leahy DO 08/12/23 1528 Signed By: 08/12/23 1529 Normal [facility] XR lumbar spine 6V w bending on 08-12-2023 XR lumbar spine 6V w bending [facility] Main [place] [address] [place] [address] XRay Report Signed Patient: Mary Diaz MR#: [id number] : 1950 Acct:[id number] Age/Sex: 73 / M ADM Date: 08/12/23 Loc: XD Room: Type: [facility] Attending Dr: Esther HILTON Copies to: [...] Kenny Leahy M.D.08/12/2023 3:28 PM Dictation Location: [place] [address] Transcribed By: [facility] 08/12/23 1528 Dictated By: Kenny Leahy DO 08/12/23 1526 Signed By: 08/12/23 1528 [facility] MR lumbar spine wo conon MR lumbar spine wo con [facility] Main [place] [address] [place] [address] MRI Report Signed Patient: Mary Diaz MR#: [id number] : 1950 Acct:[id number] Age/Sex: 72 / M ADM Date: 01/01/23 Loc: MR Room: Type: [facility] Attending Dr: Zoran Chavez MD Copies [...] Jamaica Alas M.D.01/01/2023 2:48 PM Dictation Location: [place] [address] Transcribed By: [facility] 01/01/23 1448 Dictated By: Jamaica Alas II, MD 01/01/23 1441 Signed By: 01/01/23 1448 [facility] XR CSPINE MIN 4 VIEWSon [...] ALLI CORTES Date: 2022-10-23 11:53 Normal [facility] XR LSPINE W_OBLS AND FLEX_EX [...] JAMAICA GONZALEZ Date: 2022-10-23 13:18 Normal [facility] BNPon 10-06-2022 Natriuretic peptide B (Bld) [Mass/Vol] 844.0 pg/mL Normal <=900.0 [facility] Comment on above: Performed By: #### C VDTBH #### [facility] Laboratory [address] [place] [address] Dr. Johnna Dixon CBC AUTO DIFFon 10-06-2022 BASO # 0.0 103/ul Normal 0.0-0.1 [facility] Comment on above: Performed By: #### C BC #### [facility] Laboratory [address] [place] [place] [address] [address] Johnna Dixon Basophils/100 WBC (Bld) 0.0 % Critically low 0.2-2.0 [facility] Comment on above: Performed By: #### C BC #### [facility] [address] [place] [address] [address] Johnna Dixon EO # 0.0 103/ul Normal 0.0-0.7 [facility] Comment on above: Performed By: #### C BC #### [facility] [address] [place] [address] [address] Johnna Dixon Eosinophils/100 WBC (Bld) 0.0 % Critically low 0.9-7.0 [facility] Comment on above: Performed By: #### C BC #### [facility] [address] [place] [address] Dr. Johnna Dixon Erythrocyte distribution width (RBC) [Ratio] 13.9 % Normal 11.0-15.0 [facility] Comment on above: Performed By: #### C BC #### [facility] [address] [place] [address] Dr. Johnna Dixon Hematocrit (Bld) [Volume fraction] 33.6 % Critically low 42.0-54.0 [facility] Comment on above: Performed By: #### C BC #### [facility] [address] [place] [address] Dr. Johnna Dixon Hemoglobin (Bld) [Mass/Vol] 11.1 g/dL Critically low 14.0-18.0 [facility] Comment on above: Performed By: #### C BC #### [facility] [address] [place] [address] Dr. Johnna Dixon IG # 0.03 10e3/ul Normal 0.00-0.03 [facility] Comment on above: Performed By: #### C BC #### [facility] [address] [place] [address] Dr. Johnna Dixon IG % 0.5 % Normal 0.0-0.5 [facility] Comment on above: Performed By: #### C BC #### [facility] [address] [place] [address] Dr. Johnna Dixon LYMPH # 0.7 103/ul Critically low 1.2-3.8 [facility] Comment on above: Performed By: #### C BC #### [facility] [address] [place] [address] Dr. Johnna Dixon Lymphocytes/100 WBC (Bld) 11.5 % Critically low 20.5-60.0 [facility] Comment on above: Performed By: #### C BC #### [facility] [address] [place] [address] Dr. Johnna Dixon MANUAL DIFF REQ NO Normal [facility] Comment on above: Performed By: #### C BC #### [facility] [address] [place] [address] [address] Johnna Dixon MCH (RBC) [Entitic mass] 31.0 pg Normal 25.9-34.0 [facility] Comment on above: Performed By: #### C BC #### [facility] [address] [place] [address] Dr. Johnna Dixon MCHC (RBC) [Mass/Vol] 33.0 g/dL Normal 29.9-35.2 [facility] Comment on above: Performed By: #### C BC #### [facility] [address] [place] [address] Dr. Johnna Dixon MCV (RBC) [Entitic vol] 93.9 fL Normal 80.0-94.0 [facility] Comment on above: Performed By: #### C BC #### [facility] [address] [place] [address] Dr. Johnna Dixon MONO # 0.3 103/ul Normal 0.3-0.8 [facility] Comment on above: Performed By: #### C BC #### [facility] [address] [place] [address] Dr. Johnna Dixon Monocytes/100 WBC (Bld) 4.5 % Normal 1.7-12.0 [facility] Comment on above: Performed By: #### C BC #### [facility] [address] [place] [address] Dr. Johnna Dixon NEUT # 5.0 103/ul Normal 1.4-6.5 [facility] Comment on above: Performed By: #### C BC #### [facility] [address] [place] [address] Dr. Johnna Dixon Neutrophils/100 WBC (Bld) 83.5 % Critically high 43.0-75.0 [facility] Comment on above: Performed By: #### C BC #### [facility] [address] [place] [address] Dr. Johnna Dixon Platelet mean volume (Bld) [Entitic vol] 10.3 fL Normal 9.5-13.5 [facility] Comment on above: Performed By: #### C BC #### [facility] [address] [place] [address] [address] Johnna Dixon PLT 184 103/ul Normal 150-450 [facility] Comment on above: Performed By: #### C BC #### [facility] [address] [place] [address] [address] Johnna Dixon RBC 3.58 106/ul Critically low 4.70-6.10 [facility] Comment on above: Performed By: #### C BC #### [facility] [address] [place] [address] [address] Johnna Dixon WBC 6.0 103/ul Normal 4.0-11.0 [facility] Comment on above: Performed By: #### C BC #### [facility] [address] [place] [address] Dr. Johnna Dixon PROF 14(COMP METB)on 023 Albumin [Mass/Vol] 2.7 g/dL Critically low 3.4-5.[address] [facility] Comment on above: Performed By: #### C VDTBH #### [facility] [address] [place] [address] Dr. Johnna Dixon Albumin/Globulin [Mass ratio] 0.9 {ratio} Normal [facility] Comment on above: Performed By: #### C VDTBH #### [facility] [address] [place] [address] Dr. Johnna Dixon ALP [Catalytic activity/Vol] 32 U/L Critically low 46-116 [facility] Comment on above: Performed By: #### C VDTBH #### [facility] [address] [place] [address] Dr. Johnna Dixon ALT [Catalytic activity/Vol] 19 U/L Normal 16-63 [facility] Comment on above: Performed By: #### C VDTBH #### [facility] [address] [place] [address] Dr. Johnna Dixon Anion gap [Moles/Vol] 14.0 mmol/L Normal [facility] Comment on above: Performed By: #### C VDTBH #### [facility] [address] [place] [address] [address] Johnna Dixon AST [Catalytic activity/Vol] 12 U/L Critically low 15-37 [facility] Comment on above: Performed By: #### C VDTBH #### [facility] [address] [place] [address] [address] Johnna Dixon Bilirubin [Mass/Vol] 0.6 mg/dL Normal 0.2-1.0 [facility] Comment on above: Performed By: #### C VDTBH #### [facility] [address] [place] [address] [address] Johnna Dixon Calcium [Mass/Vol] 8.3 mg/dL Critically low 8.5-10.1 [facility] Comment on above: Performed By: #### C VDTBH #### [facility] [address] [place] [address] Dr. Johnna Dixon Chloride [Moles/Vol] 107 mmol/L Normal 98-107 [facility] Comment on above: Performed By: #### C VDTBH #### [facility] [address] [place] [address] Dr. Johnna Dixon CO2 [Moles/Vol] 24.9 mmol/L Normal 21.0-32.0 [facility] Comment on above: Performed By: #### C VDTBH #### [facility] [address] [place] [address] Dr. Johnna Dixon Creatinine [Mass/Vol] 1.20 mg/dL Normal 0.70-1.30 [facility] Comment on above: Performed By: #### C VDTBH #### [facility] [address] [address] [address] Johnna Dixon EGFR-AF MONEGASQUE >60 Normal >=60 [facility] Comment on above: Performed By: #### C VDTBH #### [facility] [address] [place] [address] Dr. Johnna Dixon EGFR-NON AF MONEGASQUE 60 mL/min/1.73m2 Normal >=60 [facility] Comment on above: Performed By: #### C VDTBH #### [facility] [address] [address] [address] Johnna Dixon Globulin (S) [Mass/Vol] 2.9 g/dL Normal [facility] Comment on above: Performed By: #### C VDTBH #### [facility] [address] [address] [address] Johnna Dixon Glucose [Mass/Vol] 153 mg/dL Critically high 74-106 [facility] Comment on above: Performed By: #### C VDTBH #### [facility] [address] [place] [address] Dr. Johnna Dixon Potassium [Moles/Vol] 3.9 mmol/L Normal 3.5-5.1 [facility] Comment on above: Performed By: #### C VDTBH #### [facility] [address] [place] [address] Dr. Johnna Dixon Protein [Mass/Vol] 5.6 g/dL Critically low 6.4-8.2 [facility] Comment on above: Performed By: #### C VDTBH #### [facility] [address] [place] [address] Dr. Johnna Dixon Sodium [Moles/Vol] 142 mmol/L Normal 136-145 [facility] Comment on above: Performed By: #### C VDTBH #### [facility] [address] [place] [address] Dr. Johnna Dixon Urea nitrogen [Mass/Vol] 14.0 mg/dL Normal 7.0-18.0 [facility] Comment on above: Performed By: #### C VDTBH #### [facility] [address] [place] [address] Dr. Johnna Dixon Urea nitrogen/Creatinine [Mass ratio] 11.7 mg/mg Normal [facility] Comment on above: Performed By: #### C VDTBH #### [facility] [address] [place] [address] Dr. Johnna Dixon CBC AUTO DIFFon 10-05-2022 BASO # 0.0 103/ul Normal 0.0-0.1 [facility] Comment on above: Performed By: #### S PUTGS #### [facility] [address] [place] [address] Dr. Johnna Dixon Basophils/100 WBC (Bld) 0.2 % Normal 0.2-2.0 [facility] Comment on above: Performed By: #### S PUTGS #### [facility] [address] [place] [address] Dr. Johnna Dixon EO # 0.0 103/ul Normal 0.0-0.7 [facility] Comment on above: Performed By: #### S PUTGS #### [facility] [address] [place] [address] Dr. Johnna Dixon Eosinophils/100 WBC (Bld) 0.2 % Critically low 0.9-7.0 [facility] Comment on above: Performed By: #### S PUTGS #### [facility] [address] [place] [address] Dr. Johnna Dixon Erythrocyte distribution width (RBC) [Ratio] 14.1 % Normal 11.0-15.0 [facility] Comment on above: Performed By: #### S PUTGS #### [facility] [address] [place] [address] Dr. Johnna Dixon Hematocrit (Bld) [Volume fraction] 39.9 % Critically low 42.0-54.0 [facility] Comment on above: Performed By: #### S PUTGS #### [facility] [address] [place] [address] Dr. Johnna Dixon Hemoglobin (Bld) [Mass/Vol] 12.8 g/dL Critically low 14.0-18.0 [facility] Comment on above: Performed By: #### S PUTGS #### [facility] [address] [place] [address] Dr. Johnna Dixon IG # 0.01 10e3/ul Normal 0.00-0.03 [facility] Comment on above: Performed By: #### S PUTGS #### [facility] [address] [place] [address] Dr. Johnna Dixon IG % 0.2 % Normal 0.0-0.5 [facility] [facility] Comment on above: Performed By: #### S PUTGS #### [facility] [address] [place] [address] Dr. Johnna Dixon LYMPH # 0.7 103/ul Critically low 1.2-3.8 [facility] Comment on above: Performed By: #### S PUTGS #### [facility] [address] [place] [address] Dr. Johnna Dixon Lymphocytes/100 WBC (Bld) 14.3 % Critically low 20.5-60.0 [facility] Comment on above: Performed By: #### S PUTGS #### [facility] [address] [place] [address] Dr. Johnna Dixon MANUAL DIFF REQ NO Normal [facility] Comment on above: Performed By: #### S PUTGS #### [facility] [address] [place] [address] Dr. Johnna Dixon MCH (RBC) [Entitic mass] 30.7 pg Normal 25.9-34.0 [facility] Comment on above: Performed By: #### S PUTGS #### [facility] [address] [place] [address] Dr. Johnna Dixon MCHC (RBC) [Mass/Vol] 32.1 g/dL Normal 29.9-35.2 [facility] Comment on above: Performed By: #### S PUTGS #### [facility] [address] [place] [address] Dr. Johnna Dixon MCV (RBC) [Entitic vol] 95.7 fL Critically high 80.0-94.0 [facility] Comment on above: Performed By: #### S PUTGS #### [facility] [address] [place] [address] Dr. Johnna Dixon MONO # 0.6 103/ul Normal 0.3-0.8 [facility] Comment on above: Performed By: #### S PUTGS #### [facility] [address] [place] [address] Dr. Johnna Dixon Monocytes/100 WBC (Bld) 12.5 % Critically high 1.7-12.0 [facility] Comment on above: Performed By: #### S PUTGS #### [facility] [address] [place] [address] Dr. Johnna Dixon NEUT # 3.6 103/ul Normal 1.4-6.5 [facility] Comment on above: Performed By: #### S PUTGS #### [facility] [address] [place] [address] Dr. Johnna Dixon Neutrophils/100 WBC (Bld) 72.6 % Normal 43.0-75.0 [facility] Comment on above: Performed By: #### S PUTGS #### [facility] [address] [place] [address] Dr. Johnna Dxion Platelet mean volume (Bld) [Entitic vol] 9.5 fL Normal 9.5-13.5 [facility] Comment on above: Performed By: #### S PUTGS #### [facility] [address] [place] [address] Dr. Johnna Dixon PLT 213 103/ul Normal 150-450 [facility] Comment on above: Performed By: #### S PUTGS #### [facility] [address] [place] [address] Dr. Johnna Dixon RBC 4.17 106/ul Critically low 4.70-6.10 [facility] Comment on above: Performed By: #### S PUTGS #### [facility] [address] [place] [address] Dr. Johnna Dixon WBC 5.0 103/ul Normal 4.0-11.0 [facility] Comment on above: Performed By: #### S PUTGS #### [facility] [address] [place] [address] Dr. Johnna Dixon CULTURE BLOODon 10-05-2022 Microscopic examination of blood, culture Culture Observations: NO GROWTH AT 5 DAYS. Normal [facility] Comment on above: Performed By: #### B LDCX2 #### [facility] [address] [place] [address] Dr. Johnna Dixon Microscopic examination of blood, culture Culture Observations: NO GROWTH AT 5 DAYS. Normal [facility] Comment on above: Performed By: #### S PUTGS #### [facility] [address] [place] [address] Dr. Johnna Dixon CULTURE SPUTUMon 10-05-2022 CULTURE SPUTUM Culture Observations : NORMAL RESPIRATORY JONATAN. Normal [facility] Comment on above: Performed By: #### S PUTGS #### [facility] [address] [address] [address] Johnna Dixon Covid-19 PCR ([facility])on 09-19 SARS-CoV-2 (COVID-19) RNA REX+probe Ql (Unsp spec) Not detected Normal NOT DETECTED [facility] Comment on above: Result Comment: This test is not yet approved or cleared by the [place] FDA. When there are no FDA-approved or cleared tests available, and other criteria are met, FDA can make tests available under an emergency access mechanism called an Emergency Use Authorization (EUA). The EUA for this test is supported by the [employer] of Health and Human Service's (HHS's) [...] SARS-CoV-2. Performed By: #### C VDTBH #### [facility] [address] [place] [address] Dr. Johnna Dixon LACTATE/LACTIC ACIDon 2022 Lactate [Moles/Vol] 1.2 mmol/L Normal 0.4-2.0 [facility] Comment on above: Performed By: #### L ACT #### [facility] [address] [place] [address] Dr. Johnna Dixon Lactate [Moles/Vol] 2.4 mmol/L Critically high 0.4-2.0 [facility] Comment on above: Performed By: #### L ACT #### [facility] [address] [address] [address] Johnna Dixon PROF CHEM 8 (BAS METB)on Anion gap [Moles/Vol] 12.6 mmol/L Normal [facility] Comment on above: Performed By: #### B MP #### [facility] [address] [address] [address] Johnna Dixon Calcium [Mass/Vol] 8.9 mg/dL Normal 8.5-10.1 [facility] Comment on above: Performed By: #### B MP #### [facility] [address] [address] [address] Johnna Dixon Chloride [Moles/Vol] 106 mmol/L Normal 98-107 [facility] Comment on above: Performed By: #### B MP #### [facility] [address] [address] [address] Johnna Dixon CO2 [Moles/Vol] 25.8 mmol/L Normal 21.0-32.0 [facility] Comment on above: Performed By: #### B MP #### [facility] [address] [place] [address] Dr. Johnna Dixon Creatinine [Mass/Vol] 1.41 mg/dL Critically high 0.70-1.30 [facility] Comment on above: Performed By: #### B MP #### [facility] [address] [address] [address] Johnna Dixon EGFR-AF MONEGASQUE >60 Normal >=60 [facility] Comment on above: Performed By: #### B MP #### [facility] [address] [address] [address] Johnna Dixon EGFR-NON AF MONEGASQUE 50 mL/min/1.73m2 Critically low >=60 [facility] Comment on above: Performed By: #### B MP #### [facility] [address] [address] [address] Johnna Dixon Glucose [Mass/Vol] 111 mg/dL Critically high 74-106 [facility] Comment on above: Performed By: #### B MP #### [facility] [address] [address] [address] Johnna Dixon Potassium [Moles/Vol] 3.4 mmol/L Critically low 3.5-5.1 [facility] Comment on above: Performed By: #### B MP #### [facility] [address] [address] [address] Johnna Dixon Sodium [Moles/Vol] 141 mmol/L Normal 136-145 [facility] Comment on above: Performed By: #### B MP #### [facility] [address] [address] [address] Johnna Dixon Urea nitrogen [Mass/Vol] 17.0 mg/dL Normal 7.0-18.0 [facility] Comment on above: Performed By: #### B MP #### [facility] [address] [address] [address] Johnna Dixon Urea nitrogen/Creatinine [Mass ratio] 12.1 mg/mg Normal [facility] Comment on above: Performed By: #### B MP #### [facility] [address] [address] [address] Johnna Dixon SPUTUM GRAM STAINon 10-06-19 COMMENTS Normal [facility] Comment on above: Performed By: #### S PUTGS #### [facility] [address] [address] [address] Johnna Dixon DIPHTHEROIDS Normal [facility] Comment on above: Performed By: #### S PUTGS #### [facility] [address] [address] [address] Johnna Dixon EPITHELIALS <25 Normal [facility] Comment on above: Performed By: #### S PUTGS #### [facility] [address] [address] [address] Johnna Dixon FUNGAL ELEMENTS Normal [facility] Comment on above: Performed By: #### S PUTGS #### [facility] [address] [address] [address] Johnna Dixon GRAM NEG BACILLI FEW Normal [facility] Comment on above: Performed By: #### S PUTGS #### [facility] [address] [address] [address] Johnna Dixon GRAM NEG DIPPLOCOCCI Normal [facility] Comment on above: Performed By: #### S PUTGS #### [facility] [address] [address] [address] Johnna Dixon GRAM POS BACILLI Normal [facility] Comment on above: Performed By: #### S PUTGS #### [facility] [address] [place] [address] Dr. Johnna Dixon GRAM POSITIVE COCCI FEW Normal [facility] Comment on above: Performed By: #### S PUTGS #### [facility] [address] [place] [address] Dr. Johnna Dixon WBC (Bld) [#/Vol] 10*3/uL Normal [facility] Comment on above: Performed By: #### S PUTGS #### [facility] [address] [place] [address] Dr. Johnna Dixon SYMPTOMATIC COVID-19 ANTIGEN on 10-05-2022 EUA Statement SEE BELOW Normal [facility] Comment on above: Result Comment: [...] sooner. Performed By: #### C VDAGS #### [facility] [address] [place] [address] Dr. Johnna Dixon SARS-CoV-2 (COVID-19) RNA REX+probe Ql (Unsp spec) Negative Normal NEGATIVE [facility] Comment on above: Performed By: #### C VDAGS #### [facility] [address] [place], [place] [address] Dr. Johnna Dixon XR CHEST 1 Von [...] SOCORRO SERRANO Date: 2022-10-05 11:44 Normal [facility] US SINGLE QUAD RT UPPERon [...] SOCORRO HUFFMAN Date: 2022-09-24 09:46 Normal [facility] AMYLASEon 09-21-2022 Amylase [Catalytic activity/Vol] 78 U/L Normal 25-115 [facility] Comment on above: Performed By: #### C VDTBH #### [facility] [address] [place], [place] [address] Dr. Johnna Dixon CBC AUTO DIFFon 09-21-2022 BASO # 0.0 103/ul Normal 0.0-0.1 [facility] Comment on above: Performed By: #### C VDTBH #### [facility] [address] [place] [address] Dr. Johnna Dixon Basophils/100 WBC (Bld) 0.5 % Normal 0.2-2.0 [facility] Comment on above: Performed By: #### C VDTBH #### [facility] [address] [place] [address] Dr. Johnna Dixon EO # 0.1 103/ul Normal 0.0-0.7 [facility] Comment on above: Performed By: #### C VDTBH #### [facility] [address] [place] [address] Dr. Johnna Dixon Eosinophils/100 WBC (Bld) 1.9 % Normal 0.9-7.0 [facility] Comment on above: Performed By: #### C VDTBH #### [facility] [address] [place] [address] Dr. Johnna Dixon Erythrocyte distribution width (RBC) [Ratio] 14.5 % Normal 11.0-15.0 [facility] Comment on above: Performed By: #### C VDTBH #### [facility] [address] [place] [address] Dr. Johnna Dixon Hematocrit (Bld) [Volume fraction] 39.1 % Critically low 42.0-54.0 [facility] Comment on above: Performed By: #### C VDTBH #### [facility] [address] [place] [address] Dr. Johnna Dixon Hemoglobin (Bld) [Mass/Vol] 12.8 g/dL Critically low 14.0-18.0 [facility] Comment on above: Performed By: #### C VDTBH #### [facility] [address] [place] [address] Dr. Johnna Dixon IG # 0.05 10e3/ul Critically high 0.00-0.03 [facility] Comment on above: Performed By: #### C VDTBH #### [facility] [address] [address] [address] Johnna Dixon IG % 0.7 % Critically high 0.0-0.5 [facility] Comment on above: Performed By: #### C VDTBH #### [facility] [address] [place] [address] Dr. Johnna Dixon LYMPH # 2.0 103/ul Normal 1.2-3.8 [facility] Comment on above: Performed By: #### C VDTBH #### [facility] [address] [place] [address] Dr. Johnna Dxion Lymphocytes/100 WBC (Bld) 27.4 % Normal 20.5-60.0 [facility] Comment on above: Performed By: #### C VDTBH #### [facility] [address] [place] [address] Dr. Johnna Dixon MANUAL DIFF REQ NO Normal [facility] Comment on above: Performed By: #### C VDTBH #### [facility] [address] [place] [address] Dr. Johnna Dixon MCH (RBC) [Entitic mass] 31.3 pg Normal 25.9-34.0 [facility] Comment on above: Performed By: #### C VDTBH #### [facility] [address] [place] [address] Dr. Johnna Dixon MCHC (RBC) [Mass/Vol] 32.7 g/dL Normal 29.9-35.2 [facility] Comment on above: Performed By: #### C VDTBH #### [facility] [address] [place] [address] Dr. Johnna Dixon MCV (RBC) [Entitic vol] 95.6 fL Critically high 80.0-94.0 [facility] Comment on above: Performed By: #### C VDTBH #### [facility] [address] [place] [address] Dr. Johnna Dixon MONO # 0.5 103/ul Normal 0.3-0.8 [facility] Comment on above: Performed By: #### C VDTBH #### [facility] [address] [address] [address] Johnna Dixon Monocytes/100 WBC (Bld) 6.9 % Normal 1.7-12.0 [facility] Comment on above: Performed By: #### C VDTBH #### [facility] [address] [place] [address] Dr. Johnna Dixon NEUT # 4.7 103/ul Normal 1.4-6.5 [facility] Comment on above: Performed By: #### C VDTBH #### [facility] [address] [place] [address] Dr. Johnna Dixon Neutrophils/100 WBC (Bld) 62.6 % Normal 43.0-75.0 [facility] Comment on above: Performed By: #### C VDTBH #### [facility] [address] [place] [address] Dr. Johnna Dixon Platelet mean volume (Bld) [Entitic vol] 9.3 fL Critically low 9.5-13.5 [facility] Comment on above: Performed By: #### C VDTBH #### [facility] [address] [place] [address] Dr. Johnna Dixon PLT 235 103/ul Normal 150-450 [facility] Comment on above: Performed By: #### C VDTBH #### [facility] [address] [place] [address] Dr. Johnna Dixon RBC 4.09 106/ul Critically low 4.70-6.10 [facility] Comment on above: Performed By: #### C VDTBH #### [facility] [address] [place] [address] Dr. Johnna Dixon WBC 7.4 103/ul Normal 4.0-11.0 [facility] Comment on above: Performed By: #### C VDTBH #### [facility] [address] [place] [address] Dr. Johnna Dixon LIPASEon 09-21-2022 Lipase [Catalytic activity/Vol] 114.0 U/L Normal 73.0-393.0 [facility] Comment on above: Performed By: #### C VDAGS #### [facility] [address] [place] [address] Dr. Johnna Dixon LIVER PROFILEon 09-21-2022 Albumin [Mass/Vol] 3.9 g/dL Normal 3.4-5.0 [facility] Comment on above: Performed By: #### C VDTBH #### [facility] [address] [place] [address] Dr. Johnna Dixon Albumin/Globulin [Mass ratio] 1.6 {ratio} Normal [facility] Comment on above: Performed By: #### C VDTBH #### [facility] [address] [place] [address] Dr. Johnna Dixon ALP [Catalytic activity/Vol] 59 U/L Normal 46-116 [facility] Comment on above: Performed By: #### C VDTBH #### [facility] [address] [place] [address] Dr. Johnna Dixon ALT [Catalytic activity/Vol] 23 U/L Normal 16-63 [facility] Comment on above: Performed By: #### C VDTBH #### [facility] [address] [place] [address] Dr. Johnna Dixon AST [Catalytic activity/Vol] 8 U/L Critically low 15-37 [facility] Comment on above: Performed By: #### C VDTBH #### [facility] [address] [place] [address] Dr. Johnna Dixon BILI, CONJUGATED 0.1 mg/dL Normal 0.0-0.2 [facility] Comment on above: Performed By: #### C VDTBH #### [facility] [address] [place] [address] Dr. Johnna Dixon Bilirubin [Mass/Vol] 0.3 mg/dL Normal 0.2-1.0 [facility] Comment on above: Performed By: #### C VDTBH #### [facility] [address] [place] [address] Dr. Johnna Dixon Globulin (S) [Mass/Vol] 2.5 g/dL Normal [facility] Comment on above: Performed By: #### C VDTBH #### [facility] [address] [place] [address] Dr. Johnna Dixon Protein [Mass/Vol] 6.4 g/dL Normal 6.4-8.2 [facility] Comment on above: Performed By: #### C VDTBH #### [facility] [address] [place] [address] Dr. Johnna Dixon PROF CHEM 8 (BAS METB)on Anion gap [Moles/Vol] 13.4 mmol/L Normal [facility] Comment on above: Performed By: #### C VDTBH #### [facility] [address] [place] [address] Dr. Johnna Dixon Calcium [Mass/Vol] 8.9 mg/dL Normal 8.5-10.1 [facility] Comment on above: Performed By: #### C VDTBH #### [facility] [address] [place] [address] Dr. Johnna Dixon Chloride [Moles/Vol] 106 mmol/L Normal 98-107 [facility] Comment on above: Performed By: #### C VDTBH #### [facility] [address] [place] [address] Dr. Johnna Dixon CO2 [Moles/Vol] 25.6 mmol/L Normal 21.0-32.0 [facility] Comment on above: Performed By: #### C VDTBH #### [facility] [address] [place] [address] Dr. Johnna Dixon Creatinine [Mass/Vol] 1.21 mg/dL Normal 0.70-1.30 [facility] Comment on above: Performed By: #### C VDTBH #### [facility] [address] [place] [address] Dr. Johnna Dixon EGFR-AF MONEGASQUE >60 Normal >=60 [facility] Comment on above: Performed By: #### C VDTBH #### [facility] [address] [place] [address] Dr. Johnna Dixon EGFR-NON AF MONEGASQUE 59 mL/min/1.73m2 Critically low >=60 [facility] Comment on above: Performed By: #### C VDTBH #### [facility] [address] [address] [address] Johnna Dixon Glucose [Mass/Vol] 115 mg/dL Critically high 74-106 T [facility] Comment on above: Performed By: #### C VDTBH #### [facility] [address] [address] [address] Johnna Dixon Potassium [Moles/Vol] 4.0 mmol/L Normal 3.5-5.1 [facility] Comment on above: Performed By: #### C VDTBH #### [facility] [address] [place] [address] Dr. Johnna Dixon Sodium [Moles/Vol] 141 mmol/L Normal 136-145 [facility] Comment on above: Performed By: #### C VDTBH #### [facility] [address] [place] [address] Dr. Johnna Dixon Urea nitrogen [Mass/Vol] 19.0 mg/dL Critically high 7.0-18.0 [facility] Comment on above: Performed By: #### C VDTBH #### [facility] [address] [place] [address] Dr. Johnna Dixon Urea nitrogen/Creatinine [Mass ratio] 15.7 mg/mg Normal [facility] Comment on above: Performed By: #### C VDTBH #### [facility] [address] [place] [address] Dr. Johnna Dixon CREATININEon 08-04-2022 Creatinine [Mass/Vol] 1.31 mg/dL Critically high 0.70-1.30 [facility] Comment on above: Performed By: #### C JANIS #### [facility] [address] [place] [address] Dr. Johnna Dixon EGFR-AF MONEGASQUE >60 Normal >=60 [facility] Comment on above: Performed By: #### C JANIS #### [facility] [address] [address] [address] Johnna Dixon EGFR-NON AF MONEGASQUE 54 mL/min/1.73m2 Critically low >=60 [facility] Comment on above: Performed By: #### C JANIS #### [facility] [address] [address] [address] Johnna Dixon CTA NECK WO W [...] ALLI CORTES Date: 2022-08-04 14:04 Normal [facility] US CAROTID ART BILon 023 [...] ALLI CORTES Date: 2022-07-28 12:00 Normal [facility] XR KNEE RT 4V or [...] DEBORAH ZARAGOZA Date: 2022-06-30 17:38 Normal [facility] XR RIBS RT PA Fab [...] SOCORRO SERRANO Date: 2022-05-25 14:51 Normal [facility] XR RIBS RT PA Fab [...] atelectasis and small pleural effusion Normal [facility] CT CHEST WO CONon 04-18-2022 [...] SOCORRO BANSAL Date: 2022-04-18 16:17 Normal [facility] CULTURE URINEon 03-12-2022 CULTURE URINE Culture Observations : NO GROWTH. Normal [facility] Comment on above: Performed By: #### S PUTGS #### [facility] [address] [address] [address] Johnna Dixon COVID-19 Positive/NegativeOr dered By: Lionel Whitney on 02-13-2022 SARS-CoV-2 (COVID-19) N gene REX+probe Ql (Resp) Negative Negative [facility] Comment on above: Testing for SARS-CoV -2 by RT-PCR This test was developed and its performance characteristics determined by [employer] and validated at the [facility]. This test has not been FDA [...] aPTT Coag (PPP) [Time] 34.8 s 25.1-36.5 [facility] Basophils Auto (Bld) [#/Vol] Ordered By: Lionel Whitney on 02-06-2022 Basophils (Bld) [#/Vol] 0.0 10*3/uL 0.0-0.2 [facility] Basophils/100 WBC Auto (Bld) Ordered By: Lionel Whitney on 02-06-2022 Basophils/100 WBC (Bld) 0.8 % . [facility] Blood hemoglobin measurement (mass/volume)Ordered By: Lionel Whitney on 02-06-2022 Hemoglobin (Bld) [Mass/Vol] 13.2 g/dL 13.0-17.0 [facility] Blood leukocytes automated c ount (number/volume)Ordered By: Lionel Whitney on 02-06-2022 WBC (Bld) [#/Vol] 5.7 10*3/uL 4.5-11.[address] [facility] Creatinine and Glomerular fi ltration rate.predicted panel (S/P/Bld)Ordered By: Lionel Whitney on 02-06-2022 Creatinine [Mass/Vol] 1.21 mg/dL 0.64-1.27 [facility] Eosinophils Auto (Bld) [#/Vo l]Ordered By: Lionel Whitney on 02-06-2022 Eosinophils (Bld) [#/Vol] 0.1 10*3/uL 0.0-0.45 [facility] Eosinophils/100 WBC Auto (Bl d)Ordered By: Lionel Whitney on 02-06-2022 Eosinophils/100 WBC (Bld) 1.7 % . [facility] Erythrocyte distribution wid th Auto (RBC) [Ratio]Ordered By: Lionel Whitney on 02-06-2022 Erythrocyte distribution width (RBC) [Ratio] 14.2 % 12.0-14.8 [facility] Estimated glomerular filtrat ion rate (GFR) non- AmericanOrdered By: Lionel Whitney on 02-06-2022 GFR/1.73 sq M.predicted among non-blacks MDRD (S/P/Bld) [Vol rate/Area] 59 mL/Min [facility] Hematocrit Auto (Bld) [Volum e fraction]Ordered By: Lionel Whitney on 02-06-2022 Hematocrit (Bld) [Volume fraction] 40.8 % 38.8-50.0 [facility] Laboratory - CoagulationOrde red By: Lionel Whitney on 02-06-2022 PT Coag (PPP) [Time] 11.0 s 9.0-12.9 [facility] Laboratory - Hematology and Cell countsOrdered By: Lionel Whitney on 02-06-2022 Nucleated RBC/100 WBC (Bld) [Ratio] 0.1 % 0-0.5 [facility] Lymphocytes Auto (Bld) [#/Vo l]Ordered By: Lionel Whitney on 02-06-2022 Lymphocytes (Bld) [#/Vol] 1.6 10*3/uL 1.00-4.8 [facility] Lymphocytes/100 WBC Auto (Bl d)Ordered By: Lionel Whitney on 02-06-2022 Lymphocytes/100 WBC (Bld) 27.4 % . [facility] MCH Auto (RBC) [Entitic mass ]Ordered By: Lionel Whitney on 02-06-2022 MCH (RBC) [Entitic mass] 29.7 pg 27.5-35.2 [facility] MCHC Auto (RBC) [Mass/Vol]Or dered By: Lionel Whitney on 02-06-2022 MCHC (RBC) [Mass/Vol] 32.4 g/dL 32.5-35.6 [facility] MCV Auto (RBC) [Entitic vol] Ordered By: Lionel Whitney on 02-06-2022 MCV (RBC) [Entitic vol] 91.6 fL 83.5-101 [facility] Monocytes Auto (Bld) [#/Vol] Ordered By: Lionel Whitney on 02-06-2022 Monocytes (Bld) [#/Vol] 0.5 10*3/uL 0.0-0.8 [facility] Monocytes/100 WBC Auto (Bld) Ordered By: Lionel Whitney on 02-06-2022 Monocytes/100 WBC (Bld) 8.7 % . [facility] Neutrophils Auto (Bld) [#/Vo l]Ordered By: Lionel Whitney on 02-06-2022 Neutrophils (Bld) [#/Vol] 3.5 10*3/uL 1.8-7.7 [facility] Neutrophils/100 WBC Auto (Bl d)Ordered By: Lionel Whitney on 02-06-2022 Neutrophils/100 WBC (Bld) 61.4 % . [facility] No Panel InformationOrdered By: Lionel Whitney on 02-06-2022 Estimated GFR () > 60 mL/Min [facility] Comment on above: GFR estimated refere nce range: According to KDOQI guidelines, <60 ml/min/1.73m2 is sufficient to diagnose a patient with chronic kidney disease. Pharmacy Creatinine Clearance (Chem N/A [facility] Platelet mean volume Auto (B ld) [Entitic vol]Ordered By: Lionel Whitney on 02-06-2022 Platelet mean volume (Bld) [Entitic vol] 8.4 fL 6.6-10.1 [facility] Platelet poor plasma interna tional normalized ratio (INR) by coagulation assay (relatOrdered By: Lionel Whitney on 02-06-2022 INR Coag (PPP) [Relative time] 1.0 {INR} [facility] Comment on above: INR Therapeutic Rang [...] Platelets (Bld) [#/Vol] 248 10*3/uL 150-450 [facility] RBC Auto (Bld) [#/Vol]Ordere d By: Lionel Whitney on 02-06-2022 RBC (Bld) [#/Vol] 4.45 10*6/uL 3.90-5.60 [facility] Serum or plasma calcium eliezer urement (mass/volume)Ordered By: Lionel Whitney on 02-06-2022 Calcium [Mass/Vol] 9.7 mg/dL 8.2-10.[address] [facility] Serum or plasma chloride sammy surement (moles/volume)Ordered By: Lionel Whitney on 02-06-2022 Chloride [Moles/Vol] 99 mmol/L 95-114 [facility] Serum or plasma glucose eliezer urement (mass/volume)Ordered By: Lionel Whitney on 02-06-2022 Glucose [Mass/Vol] 99 mg/dL 70-[address] [facility] Comment on above: ADA recommended refe rence range Random Glucose Reference Range is dependent on time and content of last meal. Glucose of more than 200 mg/dL in a nonstressed, ambulatory subject supports the diagnosis of Diabetes Mellitus. Serum or plasma potassium me asurement (moles/volume)Ordered By: Lionel Whitney on 02-06-2022 Potassium [Moles/Vol] 4.4 mmol/L 3.5-5.1 [facility] Serum or plasma sodium measu rement (moles/volume)Ordered By: Lionel Whitney on 02-06-2022 Sodium [Moles/Vol] 135 mmol/L 136-[address] [facility] Serum or plasma total carbon dioxide measurement (moles/volume)Ordered By: Lionel Whitney on 02-06-2022 CO2 [Moles/Vol] 26.2 mmol/L 22.0-30.0 [facility] Serum or plasma urea nitroge n measurement (mass/volume)Ordered By: Lionel Whitney on 02-06-2022 Urea nitrogen [Mass/Vol] 20 mg/dL 9-23 [facility] COVID-19 Positive/NegativeOr dered By: Lionel Whitney on 10-27-2021 SARS-CoV-2 (COVID-19) N gene REX+probe Ql (Resp) Negative Negative [facility] Comment on above: Testing for SARS-CoV -2 by RT-PCR This test was developed and its performance characteristics determined by [employer] and validated at the [facility]. This test has not been FDA [...] aPTT Coag (PPP) [Time] 36.2 s 25.1-36.5 [facility] Basophils Auto (Bld) [#/Vol] Ordered By: Lionel Whitney on 10-17-2021 Basophils (Bld) [#/Vol] 0.0 10*3/uL 0.0-0.2 [facility] Basophils/100 WBC Auto (Bld) Ordered By: Lionel Whitney on 10-17-2021 Basophils/100 WBC (Bld) 0.6 % [facility] Blood hemoglobin measurement (mass/volume)Ordered By: Lionel Whitney on 10-17-2021 Hemoglobin (Bld) [Mass/Vol] 13.6 g/dL 13.0-17.0 [facility] Blood leukocytes automated c ount (number/volume)Ordered By: Lionle Whitney on 10-17-2021 WBC (Bld) [#/Vol] 5.9 10*3/uL 4.5-11.[address] [facility] Creatinine and Glomerular fi ltration rate.predicted panel (S/P/Bld)Ordered By: Lionel Whitney on 10-17-2021 Creatinine [Mass/Vol] 0.96 mg/dL 0.64-1.27 [facility] Eosinophils Auto (Bld) [#/Vo l]Ordered By: Lionel Whitney on 10-17-2021 Eosinophils (Bld) [#/Vol] 0.1 10*3/uL 0.0-0.45 [facility] Eosinophils/100 WBC Auto (Bl d)Ordered By: Lionel Whitney on 10-17-2021 Eosinophils/100 WBC (Bld) 2.0 % [facility] Erythrocyte distribution wid th Auto (RBC) [Ratio]Ordered By: Lionel Whitney on 10-17-2021 Erythrocyte distribution width (RBC) [Ratio] 14.5 % 12.0-14.8 [facility] Estimated glomerular filtrat ion rate (GFR) non- AmericanOrdered By: Lionel Whitney on 10-17-2021 GFR/1.73 sq M.predicted among non-blacks MDRD (S/P/Bld) [Vol rate/Area] > 60 mL/Min [facility] Hematocrit Auto (Bld) [Volum e fraction]Ordered By: Lionel Whitney on 10-17-2021 Hematocrit (Bld) [Volume fraction] 41.5 % 38.8-50.0 [facility] Laboratory - CoagulationOrde red By: Lionel Whitney on 10-17-2021 PT Coag (PPP) [Time] 11.0 s 9.0-12.9 [facility] Laboratory - Hematology and Cell countsOrdered By: Lionel Whitney on 10-17-2021 Nucleated RBC/100 WBC (Bld) [Ratio] 0.0 % 0-0.5 [facility] Lymphocytes Auto (Bld) [#/Vo l]Ordered By: Lionel Whitney on 10-17-2021 Lymphocytes (Bld) [#/Vol] 1.6 10*3/uL 1.00-4.8 [facility] Lymphocytes/100 WBC Auto (Bl d)Ordered By: Lionel Whitney on 10-17-2021 Lymphocytes/100 WBC (Bld) 26.8 % [facility] MCH Auto (RBC) [Entitic mass ]Ordered By: Lionel Whitney on 10-17-2021 MCH (RBC) [Entitic mass] 29.3 pg 27.5-35.2 [facility] MCHC Auto (RBC) [Mass/Vol]Or dered By: Lionel Whitney on 10-17-2021 MCHC (RBC) [Mass/Vol] 32.7 g/dL 32.5-35.6 [facility] MCV Auto (RBC) [Entitic vol] Ordered By: Lionel Whitney on 10-17-2021 MCV (RBC) [Entitic vol] 89.8 fL 83.5-101 [facility] Monocytes Auto (Bld) [#/Vol] Ordered By: Lionel Whitney on 10-17-2021 Monocytes (Bld) [#/Vol] 0.6 10*3/uL 0.0-0.8 [facility] Monocytes/100 WBC Auto (Bld) Ordered By: Lionel Whitney on 10-17-2021 Monocytes/100 WBC (Bld) 10.6 % [facility] Neutrophils Auto (Bld) [#/Vo l]Ordered By: Lionel Whitney on 10-17-2021 Neutrophils (Bld) [#/Vol] 3.5 10*3/uL 1.8-7.7 [facility] Neutrophils/100 WBC Auto (Bl d)Ordered By: Lionel Whitney on 10-17-2021 Neutrophils/100 WBC (Bld) 60.0 % [facility] No Panel InformationOrdered By: Lionel Whitney on 10-17-2021 Estimated GFR () > 60 mL/Min [facility] Comment on above: GFR estimated refere nce range: According to KDOQI guidelines, <60 ml/min/1.73m2 is sufficient to diagnose a patient with chronic kidney disease. Pharmacy Creatinine Clearance (Chem N/A [facility] Platelet mean volume Auto (B ld) [Entitic vol]Ordered By: Lionel Whitney on 10-17-2021 Platelet mean volume (Bld) [Entitic vol] 8.3 fL 6.6-10.1 [facility] Platelet poor plasma interna tional normalized ratio (INR) by coagulation assay (relatOrdered By: Lionel Whitney on 10-17-2021 INR Coag (PPP) [Relative time] 1.0 {INR} [facility] Comment on above: INR Therapeutic Rang [...] Platelets (Bld) [#/Vol] 249 10*3/uL 150-450 [facility] RBC Auto (Bld) [#/Vol]Ordere d By: Lionel Whitney on 10-17-2021 RBC (Bld) [#/Vol] 4.62 10*6/uL 3.90-5.60 [facility] Serum or plasma calcium eliezer urement (mass/volume)Ordered By: Lionel Whitney on 10-17-2021 Calcium [Mass/Vol] 9.7 mg/dL 8.2-10.[address] [facility] Serum or plasma chloride sammy surement (moles/volume)Ordered By: Lionel Whitney on 10-17-2021 Chloride [Moles/Vol] 101 mmol/L 95-114 [facility] Serum or plasma glucose eliezer urement (mass/volume)Ordered By: Lionel Whitney on 10-17-2021 Glucose [Mass/Vol] 87 mg/dL 70-[address] [facility] Comment on above: ADA recommended refe rence range Random Glucose Reference Range is dependent on time and content of last meal. Glucose of more than 200 mg/dL in a nonstressed, ambulatory subject supports the diagnosis of Diabetes Mellitus. Serum or plasma potassium me asurement (moles/volume)Ordered By: Lionel Whitney on 10-17-2021 Potassium [Moles/Vol] 4.4 mmol/L 3.5-5.1 [facility] Serum or plasma sodium measu rement (moles/volume)Ordered By: Lionel Whitney on 10-17-2021 Sodium [Moles/Vol] 136 mmol/L 136-[address] [facility] Serum or plasma total carbon dioxide measurement (moles/volume)Ordered By: Lionel Whitney on 10-17-2021 CO2 [Moles/Vol] 25.6 mmol/L 22.0-30.0 [facility] Serum or plasma urea nitroge n measurement (mass/volume)Ordered By: Lionel Whitney on 10-17-2021 Urea nitrogen [Mass/Vol] 18 mg/dL 9-23 [facility] Vital Signs Date Time Vital Sign Value Performing Clinician Facility 05-08-2024 11:49-0500 Diastolic blood pressure 90 mm[Hg] Cady Espinosa MD Work Phone: [facility] 05-08-2024 11:49-0500 Systolic blood pressure 180 mm[Hg] Cady Espinosa MD Work Phone: [facility] 05-08-2024 11:28-0500 Heart rate 67 /min Cady Espinosa MD Work Phone: [facility] 05-08-2024 11:27-0500 Body height 182.9 cm Cady Espinosa MD Work Phone: [facility] 05-08-2024 11:27-0500 Body mass index (BMI) [Ratio] 25.96 kg/m2 Cady Espinosa MD Work Phone: [facility] 05-08-2024 11:27-0500 Body weight 86.82 kg Cady Espinosa MD Work Phone: [phone] [place] [address] 03-28-2024 14:58-0400 Body height 182.88 cm [facility] 03-28-2024 14:58-0400 Body mass index (BMI) [Ratio] 24.7 kg/m2 [facility] 03-28-2024 14:58-0400 Body weight 83 kg [facility] 10-11-2023 15:27-0400 Body height 182.88 cm MD Yolande Monterroso Work Phone: [facility] 10-11-2023 15:27-0400 Body mass index (BMI) [Ratio] 25 kg/m2 MD Yolande Monterroso Work Phone: [facility] 10-11-2023 15:27-0400 Body temperature 97.2 [degF] MD Yolande Monterroso Work Phone: [facility] 10-11-2023 15:27-0400 Body weight 83.91 kg MD Yolande Monterroso Work Phone: [facility] 10-11-2023 15:27-0400 Diastolic blood pressure 88 mm[Hg] MD Yolande Monterroso Work Phone: [facility] 10-11-2023 15:27-0400 Heart rate 79 /min MD Yolande Monterroso Work Phone: [facility] 10-11-2023 15:27-0400 Systolic blood pressure 146 mm[Hg] MD Yolande Monterroso Work Phone: [facility] 10-04-2023 10:35-0400 Blood Pressure Location Lionel WHITNEY [facility] 10-04-2023 10:35-0400 Diastolic blood pressure 88 mm[Hg] Lionel WHITNEY [facility] 10-04-2023 10:35-0400 Heart rate 72 /min Lionel WHITNEY [facility] 10-04-2023 10:35-0400 Respiratory rate 16 /min Lionel DEVONTE [facility] 10-04-2023 10:35-0400 Systolic blood pressure 136 mm[Hg] Lionel WHITNEY [facility] 08-12-2023 11:10-0500 Body height 182.88 cm MD Yolande Monterroso Work Phone: [facility] 08-12-2023 11:10-0500 Body mass index (BMI) [Ratio] 24.3 kg/m2 MD Yolande Monetrroso Work Phone: [facility] 08-12-2023 11:10-0500 Body weight 81.19 kg MD Yolande Monterroso Work Phone: [facility] 02-10-2023 14:16-0400 Blood Pressure Location Qamar ROBINSONL [facility] [place] 02-10-2023 14:16-0400 Diastolic blood pressure 80 mm[Hg] Qamar NILL [facility] [place] 02-10-2023 14:16-0400 Heart rate 70 /min Qamar NILL [facility] [place] 02-10-2023 14:16-0400 Respiratory rate 16 /min Qamar NILL [facility] [place] 02-10-2023 14:16-0400 Systolic blood pressure 124 mm[Hg] Qamar NILL [facility] [place] 12-03-2022 10:20-0400 Body height 182.88 cm Zoran Chavez Other [employer] Other 12-03-2022 10:20-0400 Body mass index (BMI) [Ratio] 25.49 kg/m2 Zoran Chavez Other [employer] Other 12-03-2022 10:20-0400 Body weight 85.28 kg Zoran Scott Other [employer] Other 10-22-2022 10:20-0400 Body height 182.88 cm Zoran Scott Other [employer] Other 10-22-2022 10:20-0400 Body mass index (BMI) [Ratio] 25.63 kg/m2 Zoran Chavez Other [employer] Other 10-22-2022 10:20-0400 Body weight 85.73 kg Zoran Scott Other [facility] Other 10-22-2022 10:20-0400 Diastolic blood pressure 80 mm[Hg] Zoran Scott Other [facility] Other 10-22-2022 10:20-0400 Systolic blood pressure 110 mm[Hg] Zoransukhwinder Chavez Other [employer] Other 02-24-2022 10:43-0400 Blood Pressure Location Lionel WHITNEY [facility] 02-24-2022 10:43-0400 Diastolic blood pressure 80 mm[Hg] Lionel WHITNEY [facility] 02-24-2022 10:43-0400 Heart rate 65 /min Lionel WHITNEY [facility] 02-24-2022 10:43-0400 Respiratory rate 16 /min Lionel WHITNEY [facility] 02-24-2022 10:43-0400 Systolic blood pressure 140 mm[Hg] Lionel WHITNEY [facility] 02-17-2022 15:15-0400 Diastolic blood pressure 83 mm[Hg] MD Yolande Monterroso Work Phone: [facility] 02-17-2022 15:15-0400 Heart rate 58 /min MD Yolande Monterroso Work Phone: [facility] 02-17-2022 15:15-0400 Respiratory rate 16 /min MD Yolande Monterroso Work Phone: [facility] 02-17-2022 15:15-0400 SaO2% (BldA) [Mass fraction] 95 % MD Yolande Monterroso Work Phone: [facility] 02-17-2022 15:15-0400 Systolic blood pressure 166 mm[Hg] MD Yolande Monterroso Work Phone: [facility] 02-17-2022 14:30-0400 Body height 182.88 cm MD Yolande Monterroso Work Phone: [facility] 02-17-2022 14:30-0400 Body mass index (BMI) [Ratio] 26.2 kg/m2 MD Yolande Monterroso Work Phone: [facility] 02-17-2022 14:30-0400 Body weight 87.7 kg MD Yolande Monterroso Work Phone: [facility] 02-17-2022 14:17-0400 Body temperature 97.6 [degF] MD Yolande Monterroso Work Phone: [facility] 02-17-2022 13:52-0400 Inhaled oxygen flow rate 10 L/min MD Yolande Monterroso Work Phone: [facility] 10-17-2021 11:42-0400 Body height 180.34 cm MD Yolande Monterroso Work Phone: [facility] 10-17-2021 11:42-0400 Body mass index (BMI) [Ratio] 27 kg/m2 MD Yolande Monterroso Work Phone: [facility] 10-17-2021 11:42-0400 Body temperature 98.4 [degF] MD Yolande Monterroso Work Phone: [facility] 10-17-2021 11:42-0400 Body weight 88 kg MD Yolande Monterroso Work Phone: [facility] 10-17-2021 11:42-0400 Diastolic blood pressure 90 mm[Hg] MD Yolande Monterroso Work Phone: [facility] 10-17-2021 11:42-0400 Heart rate 64 /min MD Yolande Monterroso Work Phone: [facility] 10-17-2021 11:42-0400 SaO2% (BldA) [Mass fraction] 100 % MD Yolande Monterroso Work Phone: [facility] 10-17-2021 11:42-0400 Systolic blood pressure 172 mm[Hg] MD Yolande Monterroso Work Phone: [facility] Encounters Encounter Date Encounter Type Care Provider Facility Start: 10-09-2024 ambulatory Lionel WHITNEY Facili ty:[facility] Start: 07-12-2024 ambulatory Lionel WHITNEY Facili ty:[facility] Start: 07-06-2024 ambulatory Lionel WHITNEY Facili ty:[id number] Start: 05-22-2024 End: 05-22-2024 Lab Drop off Lionel WHITNEY [facility] Start: 05-22-2024 End: 05-22-2024 ambulatory Lionel WHITNEY Facility:[facility] Start: 05-22-2024 End: 05-22-2024 Patient encounter procedure Lionel WHITNEY [facility] Start: 05-09-2024 End: 05-09-2024 ambulatory Lionel WHITNEY Facility:[facility] Start: 05-09-2024 End: 05-09-2024 Patient encounter procedure Lionel WHITNEY [facility] Start: 05-08-2024 End: 05-08-2024 Office consultation new/estab patient 60 min Cady Espinosa MD Work Phone: [facility] Comment on above: Unequal blood pressu re in upper extremities; Uncontrolled hypertension; Shortness of breath; Mixed hyperlipidemia; History of prostate cancer; Hx of bladder cancer; History of fractured rib; Former smoker; BMI 25.0-25.9,adult; Medication course changed Start: 05-08-2024 End: 05-08-2024 ambulatory [facility] Start: 04-10-2024 End: 04-10-2024 ambulatory Tamiko Landa MD Facility:[facility] Start: 03-28-2024 End: 03-28-2024 ambulatory [facility] Work Phone: Start: 03-28-2024 End: 03-28-2024 Patient encounter procedure [facility] Work Phone: Start: 03-27-2024 End: 03-27-2024 [facility] Start: 10-26-2023 End: 10-26-2023 ambulatory Lionel WHITNEY Facility:[facility] Start: 10-26-2023 End: 10-26-2023 Patient encounter procedure Lionel WHITNEY [facility] Start: 10-11-2023 End: 10-11-2023 ambulatory MD Yolande Monterroso Work Phone: [facility] Work Phone: Start: 10-11-2023 End: 10-11-2023 Patient encounter procedure MD Yolande Monterroso Work Phone: [facility] Work Phone: Start: 10-04-2023 End: 10-04-2023 ambulatory Lionel WHITNEY Facility:[facility] Start: 10-04-2023 End: 10-04-2023 Patient encounter procedure Lionel WHITNEY [facility] Start: 09-30-2023 End: 09-30-2023 ambulatory KELLY ORTIZ Not Available Start: 09-09-2023 End: 09-09-2023 ambulatory VASU GALEANO Not Available Start: 08-28-2023 End: 08-28-2023 ambulatory Yolande Monterroso Facility:[facility] Start: 08-28-2023 End: 08-28-2023 Patient encounter procedure MD Yolande Monterroso Work Phone: [facility] [place] Work Phone: Start: 08-12-2023 End: 08-12-2023 ambulatory Yolande Monterroso Facility:[facility] Start: 08-12-2023 End: 08-12-2023 ambulatory MD Yolande Monterroso Work Phone: [facility] Work Phone: Start: 08-12-2023 End: 08-12-2023 Patient encounter procedure MD Yolande Monterroso Work Phone: [facility] Work Phone: Start: 08-12-2023 End: 08-12-2023 ambulatory MD Yolande Monterroso Work Phone: [facility] Work Phone: Start: 08-12-2023 End: 08-12-2023 Patient encounter procedure MD Yolande Monterroso Work Phone: [facility] Work Phone: Start: 07-26-2023 End: 07-26-2023 ambulatory Tamiko Landa MD Facility:[facility] Start: 04-27-2023 End: 04-27-2023 Patient encounter procedure Lionel WHITNEY [facility] Start: 02-10-2023 End: 02-10-2023 Patient encounter procedure Qamar Burgos [facility] Start: 01-05-2023 End: 01-05-2023 Patient encounter procedure Lionel WHITNEY [facility] Start: 01-01-2023 End: 01-01-2023 ambulatory Yolande Monterroso Facility:[facility] Start: 01-01-2023 End: 01-01-2023 ambulatory MD Yolande Monterroso Work Phone: [facility] Work Phone: Start: 01-01-2023 End: 01-01-2023 Patient encounter procedure MD Yolande Monterroso Work Phone: [facility] [place] Work Phone: Start: 12-03-2022 End: 12-03-2022 ambulatory Zoran Chavez Other [employer] Other Start: 12-03-2022 Office outpatient vi sit 15 minutes Zoran Chavez [facility] Start: 11-20-2022 ambulatory ANDRIUS GIEDRAITIS Faci lity:[facility] Start: 10-28-2022 End: 10-29-[address] NELLY HERRERA Facility:[facility] Start: 10-27-2022 End: 11-18-[address] ZORAN CHAVEZ Facility:[facility] Start: 10-23-2022 End: 10-24-[address] ZORAN CHAVEZ Facility:[facility] Start: 10-22-2022 End: 10-22-2022 ambulatory Zoran Chavez Other [employer] Other Start: 10-22-2022 Office outpatient vi sit 15 minutes Zoran Chavez [facility] Start: 10-05-2022 End: 10-06-[address] YOLANDE MONTERROSO . Facility:[facility] Start: 09-24-2022 End: 09-25-[address] YOLANDE MONTERROSO . Facility:[facility] Start: 09-21-2022 End: 09-22-[address] LIONEL WHITNEY . Facility:[facility] Start: 09-21-2022 End: 09-21-2022 Patient encounter procedure Lionel WHITNEY [facility] Start: 08-19-2022 End: 08-20-[address] LIONEL WHITNEY . Facility:[facility] Start: 08-17-2022 End: 08-17-2022 Patient encounter procedure Lionel WHITNEY [facility] Start: 08-04-2022 End: 08-05-[address] YOLANDE MONTERROSO . Facility:[facility] Start: 07-28-2022 End: 07-29-[address] YOLANDE MONTERROSO . Facility:[facility] Start: 07-23-2022 End: 07-23-[address] LIONEL WHITNEY . Facility:[facility] Start: 07-20-2022 End: 07-20-2022 Patient encounter procedure Lionel WHITNEY [facility] Start: 07-07-2022 End: 07-07-2022 Patient encounter procedure Lionel WHITNEY [facility] Start: 06-30-2022 End: 07-01-[address] YOLANDE MONTERROSO . Facility:[facility] Start: 06-04-2022 End: 06-04-[address] YOLANDE MONTERROSO . Facility:[facility] Start: 05-25-2022 End: 05-26-[address] YOLANDE MONTERROSO . Facility:[facility] Start: 05-18-2022 End: 05-18-2022 Patient encounter procedure Lionel WHITNEY [facility] Start: 04-27-2022 End: 04-28-[address] YOLANDE MONTERROSO . Facility:[facility] Start: 04-18-2022 End: 04-18-[address] FELICIA GALDAMEZ . Facility:[facility] Start: 04-15-2022 End: 04-15-2022 Patient encounter procedure Lionel WHITNEY [facility] Start: 03-26-2022 End: 03-26-[address] LIONEL WHITNEY . Facility:[facility] Start: 03-12-2022 End: 03-13-[address] YOLANDE MONTERROSO . Facility:[facility] Start: 03-09-2022 End: 03-09-2022 Patient encounter procedure Lionel WHITNEY [facility] Start: 02-27-2022 End: 02-27-2022 Lab Drop off Lionel WHITNEY [facility] Start: 02-27-2022 End: 02-27-2022 Patient encounter procedure Lionel WHITNEY [facility] Start: 02-24-2022 End: 02-24-2022 Patient encounter procedure Lionel WHITNEY [facility] Start: 02-17-2022 End: 02-17-2022 Admission to same day surgery center MD Yolande Monterroso Work Phone: [facility] [place] Start: 02-13-2022 End: 02-13-2022 Patient encounter procedure MD Yolande Monterroso Work Phone: [facility] Start: 02-06-2022 End: 02-06-2022 Patient encounter procedure MD Yolande Monterroso Work Phone: [facility] Start: 11-11-2021 End: 11-11-2021 Patient encounter procedure Lionel R DEVONTE [facility] Start: 11-05-2021 End: 11-05-2021 Patient encounter procedure Lionel WHITNEY [facility] [place] Start: 10-29-2021 End: 10-29-2021 Admission to same day surgery center MD Yolande Monterroso Work Phone: [facility] [place] Start: 10-27-2021 End: 10-27-2021 Patient encounter procedure MD Yolande Monterroso Work Phone: [facility] Start: 10-17-2021 End: 10-17-2021 Patient encounter procedure MD Yolande Monterroso Work Phone: [facility] Procedures Date Procedure Procedure Detail Performing Clinician Start: 05-08-2024 Ecg routine ecg w/le ast 12 lds w/i&r Cady Espinosa MD Work Phone: Start: 08-28-2023 MRI of cervical spin e [...] above: Performed By: #### P SAD #### [facility] [address] [place] [address] Dr. Johnna Dixon Start: 02-17-2022 Transurethral resect [...] Comment on above: had recently at [facility] Start: 05-21-2014 Colonoscopy Qamar DOSS Start: [...] Treatment Date Care Activity Detail Author Start: 09-26-2028 DTaP/Tdap/Td Vaccines (3 - Td or Tdap) DTaP/Tdap/Td Vaccines (3 - Td or Tdap) [facility] Start: 08-08-2024 End: 05-08-2025 Alanine aminotransferase [Enzymatic activity/volume] in Serum or Plasma by With P-5'-P Alanine Aminotransferase Lab Routine Mixed hyperlipidemia Expected: 08/08/2024, Expires: 05/08/2025 [facility] Work Phone: Comment on above: Expected: 08/08/2024, Expires: Start: 08-08-2024 End: 05-08-2025 Aspartate aminotransferase [Enzymatic activity/volume] in Serum or Plasma by With P-5'-P Aspartate Aminotransferase Lab Routine Mixed hyperlipidemia Expected: 08/08/2024, Expires: 05/08/2025 [facility] Work Phone: Comment on above: Expected: 08/08/2024, Expires: Start: 08-08-2024 End: 05-08-2025 Lipid 1996 panel - Serum or Plasma Lipid Panel Lab Routine Mixed hyperlipidemia Expected: 08/08/2024, Expires: 05/08/2025 [facility] Work Phone: Comment on above: Expected: 08/08/2024, Expires: Start: 07-17-2024 End: 07-17-2024 Patient encounter procedure 07/17/2024 10:45 AM EST Office Visit [facility] [address] [place] [address] Cady Espinosa MD [address] [facility] [address] [place], [place] [id number] [facility] Start: 06-08-2024 End: 06-08-2024 Patient encounter procedure 06/08/2024 10:45 AM EST Appointment [facility] [address] [place] [id number] [facility] Start: 05-15-2024 End: 05-08-2025 Basic metabolic 2000 panel - Serum or Plasma Basic Metabolic Panel Lab Routine Uncontrolled hypertension Expected: 05/15/2024 (Approximate), Expires: 05/08/2025 [facility] Work Phone: Comment on above: Expected: 05/15/2024 (Approximate), Expi res: 05/08/2025 Start: 05-08-2024 End: 05-08-2026 US Heart Transthoracic Transthoracic Echo Complete Echocardiography Routine Former smoker Shortness of breath Expected: 05/08/2024 (Approximate), Expires: 05/08/2026 [facility] Service Area Work Phone: Comment on above: Expected: 05/08/2024 (Approximate), Expi res: 05/08/2026 Start: 02-20-2024 COVID-19 Vaccine ( season) COVID-19 Vaccine ( season) [facility] Start: 02-20-2024 Influenza vaccination Influenza Vaccine (#1) [facility] Start: 08-12-2023 Patient referral [facility] Work Phone: Start: 08-12-2023 X-ray of cervical spine XR cervical spine w flex/ext [facility] Start: 08-12-2023 X-ray of lumbar spine, six views including bending views XR lumbar spine 6V w bending [facility] Start: 08-12-2023 XR Cervical spine Views W flexion and W extension [facility] Start: 08-12-2023 XR Lumbar spine Views [facility] Start: 02-17-2022 End: 02-17-2022 [facility] Work Phone: Start: 02-17-2022 Transurethral resection of bladder neoplasm OR Cysto/TURBT/Bladder Biopsy/Fulg (Not Applicable) [facility] Start: 02-17-2022 End: 02-17-2022 Admission to same day surgery center Departed Surgical Day Care [facility] [place] Start: 02-13-2022 End: 02-13-2022 Patient encounter procedure Departed Clinical [facility] Start: 2011 RSV High Risk: (Elderly (60+) or Population) (1 - Risk 60-74 years 1-dose series) RSV High Risk: (Elderly (60+) or Population) (1 - Risk 60-74 years 1-dose series) [facility] Start: 1969 Hepatitis C screening Hepatitis C Screening [facility] Start: 1950 Lipid panel Lipid Panel [facility] Start: 1950 Medicare Annual Wellness Visit Medicare Annual Wellness Visit (AWV) [facility] Start: 1950 Screening for malignant neoplasm of colon [facility] Microbial culture of sputum [facility] MR Cervical spine WO and W contrast IV [facility] Patient referral [facility] Work Phone: Immunizations Immunization Date Immunization Notes Care Provider Gary francisco 07-13-2023 zoster vaccine recombinant Lionel WHITNEY [facility] 03-23-2023 influenza virus vacc ine, unspecified formulation Lionel WHITNEY [facility] 03-23-2023 zoster vaccine recombinant Lionel WHITNEY [facility] 04-16-2022 SARS-CoV-2 (COVID-19 ) [id number] Qamar SMITH [facility] 03-27-2022 influenza virus vacc ine, unspecified formulation Qamar SMITH [facility] 05-06-2021 COVID-19 mRNA-1273 (Moderna) MD Yolande Monterroso Work Phone: [facility] 09-19-2020 COVID-19 mRNA-1273 (Moderna) MD Yolande Monterroso Work Phone: [facility] Comment on above: Result Comment: 2022: [id number] 08-22-2020 COVID-19 mRNA-1273 (Moderna) MD Yolande Monterroso Work Phone: [facility] Comment on above: Result Comment: 2022: [id number] 06-21-2020 SARS-CoV-2 (COVID-19 ) mRNA-1273 vaccine Lionel WHITNEY [facility] 05-23-2020 influenza virus vacc ine, unspecified formulation Qamar LUIS [facility] 04-03-2020 influenza virus vacc ine, unspecified formulation Qamar LUIS [facility] 05-29-2019 influenza virus vacc ine, unspecified formulation Qamar SMITH [facility] 04-14-2019 influenza, unspecifi ed formulation [employer] [facility] 09-26-2018 tetanus and diphther ia toxoids, adsorbed, preservative free, for adult use (2 Lf of tetanus toxoid and 2 Lf of diphtheria toxoid) Qamar BOWERSL [facility] 10-11-2017 pneumococcal polysaccharide vaccine, 23 valent Qamar NILL [facility] 07-22-2016 pneumococcal conjuga te vaccine, 13 valent Qamar NILL [facility] 06-29-2013 tetanus toxoid, redu mirtha diphtheria toxoid, and acellular pertussis vaccine, adsorbed Qamar NILL [facility] 03-10-2000 Td(adult) unspecifie d formulation Qamar NILL [facility] Payers Date Payer Category Payer Self-pay [id number] 2022 Medicare (Managed Care) [employer] [id number] 2022 Unknown 1959 Medicare [id number] 1959 Unknown [id number] 2.16.840.1.029980.19 1951 Unknown [id number] 2.16.840.1.341783.3.579.2 .593 1951 Unknown [id number] 2.16.840.1.503562.3.579.2 .593 1951 Unknown [id number] 2.16.840.1.039488.3.579.2 .593 1951 Unknown [id number] 2.16.840.1.295169.3.579.2 .593 1951 Unknown [id number] 2.16.840.1.664756.3.579.2 .593 1951 Unknown [id number] 2.16.840.1.397000.3.579.2 .593 1951 Unknown [id number] 2.16.840.1.024725.3.579.2 .593 1951 Unknown [id number] 2.16.840.1.575063.3.579.2 .593 1951 Unknown [id number] 2.16.840.1.985938.3.579.2 .593 1951 Unknown [id number] 2.16.840.1.677323.3.579.2 .593 1951 Unknown [id number] 2.16.840.1.327080.3.579.2 .593 1951 Unknown [id number] 2.16.840.1.268438.3.579.2 .593 1951 Unknown [id number] 2.16.840.1.467531.3.579.2 .593 1951 Unknown [id number] 2.16.840.1.014482.3.579.2 .593 1951 Unknown [id number] 2.16.840.1.032800.3.579.2 .593 1951 Unknown [id number] 2.16.840.1.793055.3.579.2 .593 1951 Unknown [id number] 2.16.840.1.775161.3.579.2 .593 1951 Unknown [id number] 2.16.840.1.567532.3.579.2 .593 1951 Unknown [id number] 2.16.840.1.376494.3.579.2 .593 1951 Unknown [id number] 2.16.840.1.259309.3.579.2 .1259 1951 Unknown [id number] 2.16.840.1.309315.3.579.2 .1259 1951 Unknown [id number] 2.16.840.1.683767.3.579.2 .196 1951 Unknown [id number] 2.16.840.1.349823.3.579.2 .196 1951 Unknown [id number] 2.16.840.1.070955.3.579.2 .196 1951 Unknown [id number] 2.16.840.1.156483.3.579.2 .727 1951 Unknown [id number] 2.16.840.1.765641.3.579.2 .727 1951 Unknown [id number] 2.16.840.1.117791.3.579.2 .727 1951 Unknown [id number] 2.16.840.1.305260.3.579.2 .727 1951 Unknown [id number] 2.16.840.1.367884.3.579.2 .727 1951 Unknown [id number] 2.16.840.1.091010.3.579.2 .1244 1951 Unknown [id number] 2.16.840.1.864927.3.579.2 .727 1950 Unknown [id number] 2.16.840.1.534810.3.579.2 .727 Medicare Medicare [id number] Private Health Insurance [id number] Unknown [place] [id number] Unknown [id number] 2.16.840.1.428134.3.579.2 .531 Unknown [id number] 2.16.840.1.659690.3.579.2 .531 Unknown [id number] 2.16.840.1.212040.3.579.2 .531 Social History Date Type Detail Facility Start: 10-17-2021 End: 10-04-2023 Tobacco smoking status NHIS Ex-smoker (finding) [facility] Comment on above: pt quit smoking 10+ yrs ago Start: 1950 Sex Assigned At Male F [facility] Start: 11-05-2021 Tobacco smoking status Never s moked tobacco (finding) [facility] Tobacco smoking status Never [facility] Comment on above: pt quit smoking 10+ yrs ago Start: 05-08-2024 Sex Assigned At Male [facility] End: 06-21-2003 History of tobacco use Current smoker [facility] Work Phone: End: 06-21-2003 History of tobacco use Cigarette Smoker [facility] Work Phone: Start: 05-08-2024 Tobacco use and exposure Smokeless tobacco non-user [facility] Work Phone: Start: 05-08-2024 Alcoholic beverage intake Current drinker of alcohol (finding) [facility] Work Phone: Start: 05-08-2024 History of Social function [facility] Work Phone: Start: 05-08-2024 Alcohol Comment socially [facility] Work Phone: Start: 1950 Sex assigned at Not on file [facility] Work Phone: Start: 04-28-2024 End: 05-08-2024 Exposure to SARS-CoV-2 (event) Not sure [facility] Medical Equipment Procedure Code Equipment Code Equipment Original Text Equipment Identifier Dates Transurethral resection of bladder tumor (TURBT) with cystoscopy Polymeric ureteral stent ()[id number] FDA Start: 10-29-2021 Decompression, spine, cervical, posterior approach Bone-screw internal spinal fixation system, non-sterile ()[id number] FDA Start: 04-18-2020 Decompression, spine, cervical, posterior approach Bone-screw internal spinal fixation system, non-sterile ()[id number] FDA Start: 04-18-2020 Decompression, spine, cervical, posterior approach Bone-screw internal spinal fixation system, non-sterile ()[id number] FDA Start: 04-18-2020 Decompression, spine, cervical, posterior approach Bone-screw internal spinal fixation system, non-sterile ()[id number] FDA Start: 04-18-2020 Decompression, spine, cervical, posterior approach Bone-screw internal spinal fixation system, non-sterile ()[id number] FDA Start: 04-18-2020 Goals Date Patient Goal Desired Activity /State Functional Status Date Assessment Result Facility 05-09-2024 Functional Status N/A [facility] 10-26-2023 Functional Status N/A [facility] 10-04-2023 Functional Status N/A [facility] 04-27-2023 Functional Status N/A [facility] 02-10-2023 Functional Status N/A [facility] Functional Status N/A [facility] 02-24-2022 Functional Status N/A [facility] [place] Clinical Notes 11-04-2021 to 05-09-2024 Note Date & Type Note Facility 05-09-2024 Evaluation + Plan note Extrac malik from: Title:Urology Progress Note Author:Jose Alfredo WHITNEY MD Date:05/09/24 Impression and Plan Impression: #1. This gentleman seems to have a recurrence of his bladder cancer. 2. History of prostate cancer. Plan: #1. He will get scheduled for a cystoscopy and transurethral resection of bladder tumors under general endotracheal anesthesia. Future Appointments Appointment Date:07/12/2024 10:30:00 AM Scheduled Provider:Lionel WHITNEY MD Location:[facility] Appointment Type:URO Office Visit Appointment Date:10/09/2024 10:15:00 AM Scheduled Provider:Lionel WHITNEY MD Location:[facility] [place] Appointment Type:URO Office Visit Diagnostic Tests Pending * [facility] Fish and Urine Cyto ([facility]) 05/09/24 [facility] 11-19-2024 Hospital Discharge instructions Patient Education 05/09/2024 09:39:50 [facility] - Cystoscopy Discharge Instructions (CUSTOM) Cystoscopy [...] fever over 100 degrees. 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 On surveillance cystoscopy today hewas found to have patches of papillary TCC tumors just lateral to his left UO. Review of Systems ROS reviewed as documented in chart Health Status Allergies: Allergic Reactions (Selected) Severity Not Documented Codeine- Hives/rashes. Current medications: Home Medications (8) Active amLODIPine 5 mg Tab 5 mg = 1 tab(s), Oral, Daily Cipro 500 mg Tab 500 mg = 1 tab(s), Oral, Daily Colcrys 0.6 mg oral tablet 0.6 mg = 1 tab(s), PRN, Oral, Daily diclofenac sodium 75 mg Oral EC Tab 75 mg = 1 tab(s), Oral, BID liothyronine 25 mcg Tab Pantoprazole [address] Tab 40 mg = 1 tab(s), Oral, Daily sildenafil 100 mg Tab 100 mg = 1 tab(s), Oral, As Directed Trelegy Ellipta 100 mcg-62.5 mcg-25 mcg inhalation powder 1 puff(s), Inhalation, Daily Problem list: All Problems HTN (hypertension) / SNOMED CT [id number] / Confirmed Acute gouty arthritis / SNOMED CT [id number] / Confirmed lots of inflammation per pt sometimes has to get steroids History of prostate cancer / SNOMED CT 0058644026 / Confirmed History of kidney stones / SNOMED CT 7739240350 / Confirmed Impotence / SNOMED CT 3793422663 / Confirmed Bladder cancer / SNOMED CT 5134445632 / Confirmed Spondylolisthesis of cervical region / SNOMED CT 821477219 / Confirmed Chronic obstructive pulmonary disease / SNOMED CT 43137742 / Confirmed GERD (gastroesophageal reflux disease) / SNOMED CT 956998953 / Confirmed BMI 23.0-23.9, adult / SNOMED CT 6661339128 / Confirmed Personal history of colonic polyps / SNOMED CT 4545710393 / Confirmed Chronic GERD / SNOMED CT 831415401 / Confirmed Change in bowel habits / SNOMED CT 939618335 / Confirmed Iron deficiency anemia / SNOMED CT 632799154 / Confirmed Personal history of bladder cancer / SNOMED CT 2303245400 / Confirmed Shoulder impingement syndrome / SNOMED CT 854441900 / Confirmed Ecchymosis / SNOMED CT 290073099 / Confirmed left leg from españa to ankle- box with snowblower in it slipped off a cart and banged his leg. Foot pink and dry with immediate capillary refill, 4t pedal and poterior tibial pulses. Umbilical hernia / SNOMED CT 5911470767 / Confirmed Histories Past Medical History: Active HTN (hypertension) ([id number]) Acute gouty arthritis ([id number]) Comments: 08/22/2014 EST 16:07 Jannette Del Rio RN lots of inflammation per pt sometimes has to get steroids Resolved Cancer of prostate ([id number]): Resolved. Comments: 08/22/2014 EST 16:09 Jannette Del Rio RN just had a surgery done radical prostectomy at [facility] Acid reflux ([id number]): Resolved. Family History: Hypertension Father Diabetes mellitus type 2 Father Depression Sister Procedure history: Cystoscopy ([id number]) on 04/27/2023 at 73 Years. TURBT - Transurethral resection of bladder tumor ([id number]) on 01/14/2023 at 72 Years. TURBT - Transurethral resection of bladder tumor ([id number]) on 02/17/2022 at 72 Years. TURBT - Transurethral resection of bladder tumor (8617726019) on 10/29/2021 at 71 Years. Cystourethroscopy with dilation of urethral stricture ([id number]) on 10/14/2021 at 71 Years. Repair of umbilical hernia (43306128) on 06/22/2017 at 67 Years. Comments: 06/22/2017 14:35 Nedra Tavares RN Umbilical hernia repair with mesh ( assisted with robot) Arthroscopy of shoulder ([id number]) on 05/20/2017 at 67 Years. Comments: 05/20/2017 19:03 EST - Bright-Jamshid RN, Zora M LEFT SHOULDER ARTHROSCOPIC, CHONDROPLASTY,DEBRIDEMENT OF PARTIAL ROTATOR CUFF TEAR, REMOVAL RETAINED SUTURE Radical prostatectomy ([id number]) in the month of 08/2014 at 64 Years. bilateral fifth partial metatarsal osteotomies and Silver Tailor's bunionectomies on 08/29/2014 at 64 Years. Colonoscopy ([id number]) in the month of 05/2014 at 64 Years. Complete repair of rotator cuff (281874048) in 2010 at 61 Years. Comments: 08/22/2014 16:14 Jannette Del Rio RN right Shoulder reconstruction ([id number]) in 1998 at 49 Years. Comments: 08/22/2014 16:15 Jannette Del Rio RN left possibly a screw in there per pt Appendectomy ([id number]) in 1964 at 15 Years. Arthroplasty of the ankle (1749474455). Comments: 12/30/2018 14:30 Jayne Elkins 1990 Arthroscopy of knee ([id number]). Cervical vertebral fusion (21883171). Social History Social & Psychosocial Habits Alcohol 10/04/2023 Risk Assessment: Low Risk 10/04/2023 Use: Current Substance Abuse 10/04/2023 Risk Assessment: Denies Substance Abuse Tobacco 10/04/2023 Risk Asse (more content not included)...[facility] Comment on above:Result Comment: Electronically Signed By: DEVONTE NOBLE, Lionel Gama.atcos\Date and Time Signed: 05/09/24 09:50 [id number] NotePatient Education Custom Cystoscopy ??? Voiding after the procedure: there may be some pain, burning, urgency, frequency and blood tinged urine following the procedure. These symptoms usually resolve within 2-5 days. Drink the amount of fluid it takes to keep the urine pink to yellow or clear in color. Drinking enough water and fluids will help to ease any discomfort after your procedure. ??? If you are having problems that seem out of the ordinary, please call. ??? If unable to contact your physician and you feel it is an emergency, go to the nearest emergency room or call 911 ??? Diet ??? you may resume your normal diet. ??? Activity ??? you may resume your normal activities ??? Call if you have a fever over 100 degrees.[facility] 05-08-2024 NoteNormal sinus rhythm 67 bpm left axis deviation incomplete right bundle branch block poor R wave progression. No comparison EKG.[id number] History of Present illness Narrative* Cady Espinosa MD - 05/08/2024 11:15 AM EST Referred by Dr. Qamar Monterroso for New Patient Visit ([id number]) History Of Present Illness: Mary Diaz is a 74 y.o. male presenting with hypertension that has been difficult to control.Initially tried on metoprolol, but developed profound fatigue, did not feel good on this medication, metoprolol was discontinued, amlodipine was tried next, patient says the amlodipine did not bring his blood pressure down. Subsequently started on lisinopril, and dose was then increased to 20 mg daily. Patient also had edema to amlodipine. Does not report any symptoms. In particular review of systems is negative for chest discomfort pressure tightness heaviness palpitations lightheadedness orthopnea paroxysmal nocturnal dyspnea dependent edema or claudication TIA or CVA type symptoms or bleeding diathesis. Admits to exertional shortness of breath without orthopnea PND or lower extremity edema. The exertional shortness of breath hasbeen noticeable for the past 6 months. No recent weight loss or weight gain 12 point review of systems is negative or noncontributory except as noted no difficulty with visionspeech or hearing, no fever chills or cough, no nausea vomiting or diarrhea, no falls. Past Medical History: 1. Primary hypertension 2. Intolerance to metoprolol, intolerance to amlodipine 3. Left carotid bruit on examination 05/08/2024 4. Cannot exclude left supraclavicular bruit 05/08/2024 5. Asymmetric upper extremity blood pressures, left arm blood pressure is 20 points lower than the right arm blood pressure systolic 6. Mixed hyperlipidemia 7. Quit smoking about 20 years ago 8. Personal history of COVID 19 9. Spondylosis of cervical spine with radiculopathy Past Surgical History: He has a past surgical history that includes Appendectomy; Hernia repair; Ankle ligament reconstruction; Rotator cuff repair; Prostatectomy; Knee arthroscopy w/ debridement; Colonoscopy; and Cystoscopy. Social History: He reports that he quit smoking about 20 years ago. His smoking use included cigarettes. He has never used smokeless tobacco. He reports current alcohol use. He reports that he does not use drugs. Family History: Family History Problem Relation Name Age of Onset Hypertension Mother Hypertension Father Diabetes Father Allergies: Codeine Outpatient Medications: Current Outpatient Medications Medication Instructions diclofenac (VOLTAREN) 75 mg, 2 times daily HYDROcodone-acetaminophen ([place]) 5-325 mg tablet 1 tablet, Daily PRN liothyronine (Cytomel) 25 mcg tablet 0.5 tablets, Daily lisinopriL-hydrochlorothiazide 20-12.5 mg tablet 1 tablet, oral, Daily lisinopril 20 mg, Daily methocarbamol (ROBAXIN) 500 mg, Daily PRN pantoprazole (PROTONIX) 40 mg, Every evening rosuvastatin (CRESTOR) 20 mg, oral, Daily Trelegy Ellipta 100-62.5-25 mcg blister with device 1 puff, Daily Last Recorded Vitals: Vitals: 05/08/24 1127 05/08/24 1128 05/08/24 1144 05/08/24 1149 BP: (!) 180/92 150/90 160/90 180/90 BP Location: Right arm Left arm Right arm Left arm Patient Position: Sitting Sitting Sitting Sitting Pulse: 67 Weight: 86.8 kg (191 lb 6.4 oz) Height: 1.829 m (6') Physical Exam: Blood pressure left arm 20 points lower systolic compared to the right GENERAL APPEARANCE: Well developed, well nourished, in no acute distress. CHEST: Symmetric and non-tender. INTEGUMENT: Skin warm and dry, without gross excoriationis or lesions. HEENT: No gross abnormalities, no jugular venous distention left carotid bruit carotid bruit, probable left supraclavicular bruit NECK: Supple, no JVD, Thyroid not palpable. Carotid upstrokes normal. NEURO/PSHCY: Alert and oriented x3; appropriate behavior and responses and responses, with normal balance and coordination LUNGS: Clear to auscultation bilaterally; normal respiratory effort. HEART: Rate and rhythm regular with no evident murmur; no gallop appreciated. There are no rubs, clicks or heaves. ABDOMEN: Soft, nontender, no masses or bruits. MUSCULOSKELETAL: No obvious deformity identified EXTREMITIES: Warm There is no edema noted. PERIPHERAL VASCULAR: Pulses present and equally palpable; 2+ throughout. Strong pulses in both upper extremities Labs reviewed today : June 2023-Free T31.79 Which is slightly below normal hemoglobin A1c 5.9 total cholesterol 273 HDL 48 LDL 182 triglycerides 218 sodium 142 potassium 4.2 GFR 56 creatinine 1.27liver enzymes normal Free T4 normal at 8.7 TSH normal at 1.3 Assessment/Plan 1. Unequal blood pressure in upper extremities 2. Uncontrolled hypertension Follow Up In Cardiology ECG 12 Lead lisinopriL-hydrochlorothiazide 20-12.5 mg tablet Basic Metabolic Panel Basic Metabolic Panel 3. Shortness of breath ECG 12 Lead Transthoracic Echo Complete 4. Mixed hyperlipidemia rosuvastatin (Crestor) 20 mg tablet Alanine Aminotransferase Aspartate Aminotransferase Lipid Panel Alanine Aminotransferase Aspartate Aminotransferase Lipid Panel 5. History of prostate cancer 6. Hx of bladder cancer 7. History of fractured rib 8. Former smoker Transthoracic Echo Complete 9. BMI 25.0-25.9,adult 10. Medication course changed Clinical decision making: Multiple cardiac risk factors Exertional shortness of breath possibly multifactorial Intolerance to metoprolol and amlodipine Asymmetric upper extremity blood pressures with left carotid bruit and left supraclavicular bruit, no symptoms of subclavian steal were initiated. Degenerative joint disease requiring regular use of nonsteroidals. We will increase the lisinopril from 20 mg daily to lisinopril/hydrochlorothiazide 40/12.5 mg daily. Therefore we will give him a prescription for lisinopril 20/12.5 to be added to his current dose of 20 mg may take about 4 weeks to 6 weeks to reach maximum effect potential side effects were reviewed Echocardiogram was ordered Rosuvastatin 20 mg daily Fasting liver and lipid profile in 3 to 4 months Carotid ultrasound Follow-up after testing sooner if interval problems arise Thank you Dr. Qamar Monterroso for allowing me to participate in patient's care, please do not hesitate to call if further questions arise, Sincerely, Cady Espinosa MD [facility] Provider Attestation - Scribe documentation All medical record entries made by the Scribe were at my direction and personally dictated by me. Huan reviewed the chart and agree that the record accurately reflects my personal performance of the history, physical exam, discussion and plan. documented in this [facility] Work Phone: 1(833) 892-768111-18-2024 Instructions* Patient Instructions* Ella Cruz RN - 05/08/2024 11:15 AM EST Please bring all medicines, vitamins, and herbal supplements with you when you come to the office. Prescriptions will not be filled unless you are compliant with your follow up appointments or have a follow up appointment scheduled as per instruction of your physician. Refills should be requested at the time of your visit. EKG done in office today BMI was above normal measurement. Current weight: 86.8 kg (191 lb 6.4 oz) Weight change since last visit (-) denotes wt loss 191.4 lbs Weight loss needed to achieve BMI 25: 7.5 Lbs Weight loss needed to achieve BMI 30: -29.3 Lbs Provided instructions on dietary changes Provided instructions on exercise. [facility]: 1(126) 118-748805-07-2024 Hospital Discharge instructions Patient Education 10/26/2023 11:58:55 [...] Up Care 09/29/2023 09:06:13 With:Lionel WHITNEY Address: [address] [place] [address] [facility] (1) When: Unknown Comments:Office will call to schedule follow up [facility]05-07-2024 Note [id number]#1.00Sara [facility] 10-26-2023 NoteCustom Cystoscopy ? Voiding after the procedure: [...] if you have a fever over 100 degrees.[facility] 10-04-2023 Hospital Discharge instructions Patient [...] health care provider may recommend screenings for othertypes of cancer if: You had cancer before. [...] stool. For this test, you will need tocollect stool samples at home. Stool DNA test. [...] if anything looks unusual. Men with a mlzers-czga-yavnzb risk for skin cancer may want to see a skin drier (brake holder) for an annual body check. What are the benefits of screening? Cancer screening is done to look for cancer in the very early stages, before it spreads and becomesharder to treat and before you would start to notice symptoms. Finding cancer early improves the chances of successful treatment. It may save your life. Where to find more information [place] [employer]: www.cancer.org Centers for Disease Control and Prevention: www.cdc.gov National Cancer [place]: www.cancer.gov Contact a health care provider if: [...] Document Reviewed: 05/03/2020 Elsevier Patient Education 2022 [employer]. Follow Up Care 10/01/2022 10:55:16 With:DEVONTE NOBLE, CAROLINA Salazar Address: [facility] [address] [place] [address]- [phone] When: Unknown Comments:1 yr w/ PSA [facility] 11-07-2023 Hospital Discharge instructions Patient Education 04/27/2023 11:01:06 [...] Address: [facility] [address] [place] [address]- [facility] (1) When: Unknown Comments:Office will call to schedule follow up [facility]07-18-2023 Hospital Discharge instructions Patient Education 01/05/2023 10:55:52 [...] WHITNEY Address: [facility] [address] [place] [address]- Business (1) When: Unknown Comments:Office will call to schedule follow up [facility]06-15-2023 Evaluation note* Encounter Date Diagnosis Assessment Notes Treatment Notes Treatment Clinical Notes Nov, Lumbar pain (ICD-10 - M54.50) [...] M46.1) Nov, Neurogenic claudication (ICD-10 - R29.818) [facility] Other 05-04-2023 Evaluation note* Encounter Date Diagnosis [...] spine October, Neurogenic claudication (ICD-10 - R29.818) [facility] Other 04-03-2023 Hospital Discharge instructions Patient Education [...] if anything looks unusual. Men with a bnkhbm-bmtg-udtrls risk for skin cancer may want to see a skin drier (brake holder) for an annual body check. Where to find more information National Cancer [place]: https://www.cancer.gov/about-cancer/screening Centers for Disease Control and Prevention: https://www.cdc.gov/cancer/dcpc/prevention/screening.htm [place] [employer]: https://www.cancer.org/latest-news/9-vhvgpq-ycpfegjlv-pvavj-rmy-bxd.html Contact a health care provider if: You [...] 03/04/2017 Document Revised: 02/24/2019 Document Reviewed: 03/04/2017 [employer]Art Patient Education 2020 [employer]. Follow Up Care 09/19/2021 11:05:08 With:DEVONTE NOBLE, Lionel Burgos, URL Address: [facility] [address], [place] [address]- When: Unknown [facility] 01-17-2023 Hospital Discharge instructions Patient Education [...] [facility] [address], [place] [address]- Business (1) When: Unknown Comments:Office will call to schedule follow up [facility]09-06-2022 Hospital Discharge instructions Patient Education 02/24/2022 11:23:44 [...] if anything looks unusual. Men with a zdgprh-fpaa-bnyzub risk for skin cancer may want to see a skin drier (brake holder) for an annual body check. Where to find more information National Cancer [place]: https://www.cancer.gov/about-cancer/screening Centers for Disease Control and Prevention: https://www.cdc.gov/cancer/dcpc/prevention/screening.htm [place] [employer]: https://www.cancer.org/latest-news/1-tfwmfo-miembqcjq-ppmix-ssf-vbu.html Contact a health care provider if: You [...] 03/04/2017 Document Revised: 02/24/2019 Document Reviewed: 03/04/2017 [employer]Art Patient Education 2020 [employer]. Follow Up Care 02/05/2022 13:48:40 With:DEVONTE NOBLE, Lionel Burgos, URL Address: [facility] [address] , [place] [phone] When: Unknown [facility] [id number] Hospital Discharge instructions Patient Education 11/11/2021 09:47:46 [...] Address: [facility] [address] [place] [address]- Business (1) When: Unknown Comments:Keep scheduled appointment [facility]05-17-2022 Hospital Discharge instructions Patient Education [...] who: Are older than age 65. Are -[place]. Are obese. Have a family history of [...] cells. Follow these instructions at home: Take vbwl-hcz-ugiqzfk and prescription medicines only as told by [...] 06/07/2006 Document Revised: 05/20/2018 Document Reviewed: 02/15/2017 [employer]Art Patient Education 2020 [employer]. Follow Up Care 10/14/2021 11:26:04 With:Lionel WHITNEY MD, URL Address: [facility] [address] , [place] [address]- When: Unknown [facility] [employer] Evaluation + Plan note Future Appointments Appointment Date:09/21/2022 09:45:00 AM Scheduled Provider:Lionel WHITNEY MD Location:[facility] [place] Appointment Type:URO Office Visit [facility] Evaluation + Plan note Future Appointments Appointment Date:03/09/2022 09:00:00 AM Scheduled Provider: Location:[facility] [place] Appointment Type:URO Nurse Visit Appointment Date:04/15/2022 09:00:00 AM Scheduled Provider: Location:[facility] [place] Appointment Type:URO Nurse Visit Appointment Date:09/21/2022 09:45:00 AM Scheduled Provider:Lionel WHITNEY MD Location:[facility] [place] Appointment Type:URO Office Visit [facility] [employer] Evaluation + Plan note Future Appointments Appointment Date:03/09/2022 09:00:00 AM Scheduled Provider: Location:[facility] [place] Appointment Type:URO Nurse Visit Appointment Date:04/15/2022 09:00:00 AM Scheduled Provider: Location:[facility] [place] Appointment Type:URO Nurse Visit Appointment Date:09/21/2022 09:45:00 AM Scheduled Provider:Lionel WHITNEY MD Location:[facility] [place] Appointment Type:URO Office Visit Diagnostic Tests Pending * Urine Culture [facility] Future App[facility]ments Appointment Date:04/15/2022 09:00:00 AM Scheduled Provider: Location:[facility] [place] Appointment Type:URO Nurse Visit Appointment Date:09/21/2022 09:45:00 AM Scheduled Provider:Lionel WHITNEY MD Location:[facility] Appointment Type:URO Office Visit [facility] evaluation + Plan note Future Appointments Appointment Date:07/20/2022 10:00:00 AM Scheduled Provider: Location:[facility] Appointment Type:URO Nurse Visit Appointment Date:08/17/2022 10:00:00 AM Scheduled Provider: Location:[facility] Appointment Type:URO Nurse Visit Appointment Date:09/21/2022 09:45:00 AM Scheduled Provider:Lionel WHITNEY MD Location:[facility] Appointment Type:URO Office Visit Diagnostic Tests Pending * UroVysion FISH ([facility]) 07[facility]07/22 [facility] Future Appointments Appointment Date:08/17/2022 10:00:00 AM Scheduled Provider: Location:[facility] Appointment Type:URO Nurse Visit Appointment Date:09/21/2022 09:45:00 AM Scheduled Provider:Lionel WHITNEY MD Location:[facility] Appointment Type:URO Office Visit [facility] Evaluation + Plan note Future Appointments Appointment Date:09/22/2022 02:00:00 PM Scheduled Provider: Location:[facility] Appointment Type:Urology CALL PAT FT Appointment Date:09/29/2022 11:15:00 AM Scheduled Provider: Location:[facility] Appointment Type:Urology FT [facility] evaluation + Plan note Future Appointments Appointment Date:09/22/2022 02:00:00 PM Scheduled Provider: Location:[facility] Appointment Type:Urology CALL PAT FT Appointment Date:09/29/2022 11:15:00 AM Scheduled Provider: Location:[facility] Appointment Type:Urology FT Diagnostic Tests Pending * Urine Cytology ([facility]) 09/21/22 [facility] evaluation + Plan note Future Appointments Appointment Date:10/04/2023 10:15:00 AM Scheduled Provider:Lionel WHITNEY MD Location:[facility] Appointment Type:URO Office Visit Diagnostic Tests Pending * UroVysion Fish and Urine Cyto ([facility]) 01/05/23 [facility] Future Appointments Appointment Date:10/04/2023 10:15:00 AM Scheduled Provider:Lionel WHITNEY MD Location:[facility] Appointment Type:URO Office Visit General Surgery [place] Evaluation + Plan note Future Appointments Appointment Date:10/04/2023 10:15:00 AM Scheduled Provider:Lionel WHITNEY MD Location:[facility] Appointment Type:URO Office Visit Diagnostic Tests Pending * UroVysion Fish and Urine Cyto ([facility]) 04/27/23 [facility] Future Appointments Appointment Date:10/20/2023 12:00:00 PM Scheduled Provider: Location:[facility] Appointment Type:Urology CALL PAT FT Appointment Date:10/26/2023 10:00:00 AM Scheduled Provider: Location:[facility] Appointment Type:Urology FT Appointment Date:10/09/2024 10:15:00 AM Scheduled Provider:Lionel WHITNEY MD Location:[facility] Appointment Type:URO Office Visit Diagnostic Tests Pending * PSA Total 10/04/23 [facility] evaluation + Plan note Future Appointments Appointment Date:10/09/2024 10:15:00 AM Scheduled Provider:Lionel WHITNEY MD Location:[facility] Appointment Type:URO Office Visit Diagnostic Tests Pending * UroVysion Fish and Urine Cyto ([facility]) 10/26/23 [facility] Future Appointments Appointment Date:07/12/2024 10:30:00 AM Scheduled Provider:Lionel WHITNEY MD Location:[facility] Appointment Type:URO Office Visit Appointment Date:10/09/2024 10:15:00 AM Scheduled Provider:Lionel WHITNEY MD Location:[facility] Appointment Type:URO Office Visit [facility] evaluation + Plan note Future Appointments Appointment Date:07/12/2024 10:30:00 AM Scheduled Provider:Lionel WHITNEY MD Location:[facility] Appointment Type:URO Office Visit Appointment Date:10/09/2024 10:15:00 AM Scheduled Provider:Lionel WHITNEY MD Location:[facility] Appointment Type:URO Office Visit Diagnostic Tests Pending * Urine Cytology ([facility]) 05/22/24 [facility] Evaluation noteNo assessment information available [facility] Work Phone: evaluation note* Diagnosis Onset Date Resolution Status Spinal stenosis of cervical region with radiculopathy acute Spinal stenosis of lumbar region with radiculopathy acute [facility] Work Phone: evaluation note* Diagnosis Onset Date Resolution Status Spinal stenosis of cervical region with radiculopathy acute Spinal stenosis of lumbar region with radiculopathy acute Colonization status acute COPD (chronic obstructive pulmonary disease) acute [facility] Work Phone: evaluation note* Diagnosis Unequal blood pressure in upper extremities Uncontrolled hypertension Shortness of breath Mixed hyperlipidemia History of prostate cancer Personal history of malignant neoplasm of prostate Hx of bladder cancer Personal history of malignant neoplasm of bladder History of fractured rib Former smoker Personal history of tobacco use, presenting hazards to health BMI 25.0-25.9,adult Medication course changed documented in this encounter [facility] Work Phone: History general Narrative [...] KNEE SCOPE Surgical History L shoulder NAE -[facility] 2016 Hospitalization History FLU X2-3 DAYS Hospitalization History see surg. hx. [facility] Other Hospital course Narrative No data available for this section [facility] Hospital Discharge instructions No data available for this section [facility] [place] progress note No data available for this section [facility] Chief Complaint and Reason for [...] Complaint mri results from 08/27 Family History Relationship Condition Age at Onset Recorded Date/T [...] of kidney Unknown grandparent Unknown Advance Directives Advance Directive Response Recorded Date/ Time Advance Directives No July 2:58pm Advance Directive Response Recorded Date/ Time Advance Directives No July 1:58pm Reason for Referral Reason evaluate and treat f or neck and back pain Diagnosis 1 Cervical spondylosis (M47.812) Referral Organization [facility] Referring Provider First Name Zoran Referring Provider Last Name Scott Referring Provider Specialty Neurologica l Surgery Referred Organization [facility] Referred Address [address] [place], [place],[address] Referred Provider Specialty Physical The rapist Referral Priority Routine Reason evaluate and tr eat for neck and back pain Diagnosis 1 Cervical spondylosis (M47.812) Diagnosis 2 Low back pain, unspe cified (M54.50) Referral Organization [facility] Referring Provider First Name Zoran Referring Provider Last Name Scott Referring Provider Specialty Neurologica l Surgery Referred Organization [facility] Referred Provider Raoul Soriano Referred Address [address] [place], [place],[address] Referred Provider Specialty Pain Medicin e Referral Priority Routine General Notes Fore, Meron M 023 08:08:21 AM >Received today and waiting for office notes to be locked before sending referral Summary Purpose Additional Source Comments Care Teams (unrecognized sec tion and content) Personnel Name: Yolande Monterroso MD Address: Address: [address] [place] [address] Name: Leidy Plummer Team Status: Inactive Member Role Status Dates Yolande Monterroso MD Primary Care Provider Active Lionel Whitney MD Attending Provider Active Team Status: Active Member Role Status Dates Yolande Monterroso MD Primary Care Provider Active Team Status: Inactive Member Role Status Dates Yolande Monterroso MD Primary Care Provider Active Zoran Chavez MD Attending Provider Active Team Status: Inactive Member Role Status Dates Yolande Monterroso MD Primary Care Provider Active Start: August 12, 2023 End: August 12, 2023 LIDA Santoyo Attending Provider Active Start: August 12, 2023 End: August 12, 2023 Team Status: Active Member Role Status Dates Yolande Monterroso MD [...] March 28, 2024 End: March 28, 2024 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 [address] [place] [address] Phone: tel: fax: Referral ID Status Reason Start Date Expiration Date V isits Requested Visits Authorized [id number] Authorized 05/08/2024 05/08/2025 1 1 (unrecognized sect ion and content) No Status Records FoundNo Status Records FoundNo Status Records FoundNo Status Records FoundNo Status Records FoundNo Status Records FoundNo Status Records Found INFORMATION SOURCE (unrecogn ized section and content) DATE CREATED AUTHOR [facility]20[facility] DATE CREATED AUTHOR AUTHOR'S ORGANIZ ATION 09/03/2023 [facility] DATE CREATED AUTHOR AUTHOR'S ORGANIZ ATION 10/01/2023 [facility] DATE CREATED AUTHOR AUTHOR'S ORGANIZ ATION 04/19/[address] [facility] DATE CREATED AUTHOR AUTHOR'S ORGANIZ ATION 05/11/2024 [facility] DATE CREATED AUTHOR AUTHOR'S ORGANIZ ATION 05/13/2024 [facility] DATE CREATED AUTHOR AUTHOR'S ORGANIZ ATION 05/23/2024 [facility] FOR RECORDS PERTAINING TO PATIENTS [...] BE BASED ON THE PRIMARY CLINICAL RECORDS. [employer] provides no warranty or guarantee of the accuracy or completeness of information in this document.
[2024-05-23 12:55] LABS: Anion Gap 13.7; BUN Creatinine Ratio 23.3; Calcium 9.5 mg/dL (8.5-10.1); Carbon Dioxide 27.6 mmol/L (21.0-32.0); Chloride 100 mmol/L (98-107); Estimated GFR (African America 56 (>=60 mL/min/1.73m^2); Estimated GFR (Non-African Ame 46 (>=60 mL/min/1.73m^2); Glucose 105 mg/dL (74-106); Potassium 4.3 mmol/L (3.5-5.1); Sodium 137 mmol/L (136-145)
== END 2024-05-23 12:26 | disposition home or self-care (01) ==
LOC: LAB 12:27
PROVIDERS: PCP Family Medicine; Visit Provider Internal Medicine Interventional Cardiology
DX: I10 Essential (primary) hypertension (principal)
CPT/HCPCS: 36415; 80048

== ENCOUNTER 2024-05-29 14:48 | Outpatient (OUT) | payer MEDICARE, SELFPAY ==
--- NOTE | 2024-05-29 16:14 | P.CN_ITS ---
Consult Note: HPI Data of Consult Patient: known to practice within the last 3 years Consult date: 05/29/24 Requesting Physician: Tamiko Landa MD Primary Care Provider: Deadnre Staley MD Consult Narrative Reason for consult: low back, left hip pain Narrative: 74yom who presents for assessment. notes persistence of left buttock and hip pain. very tender over left psis. has continued in a series of provider directed home exercises >6 weeks, without lasting benefit. uses norco, diclofenac. denies adverse med side effects. 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 - Other specified disorders of bladder (ICD-10) Neck pain ?M54.2 - Cervicalgia (ICD-10) Low back pain ?M54.50 - Low back pain, unspecified (ICD-10) Osteoarthritis ?M19.90 - Unspecified osteoarthritis, unspecified site (ICD-10) Acid reflux ?K21.9 - Gastro-esophageal reflux disease without esophagitis (ICD-10) Hearing deficit ?H91.90 - Unspecified hearing loss, unspecified ear (ICD-10) Prostate cancer ?C61 - Malignant neoplasm of prostate (ICD-10) Former smoker ?Z87.891 - Personal history of nicotine dependence (ICD-10) Hypertension ?I10 - Essential (primary) hypertension (ICD-10) Surgical History History of colonoscopy ?Z98.890 - Other specified postprocedural states (ICD-10) History of arthroscopy of knee ?Z98.890 - Other specified postprocedural states (ICD-10) History of foot surgery ?Z98.890 - Other specified postprocedural states (ICD-10) History of appendectomy ?Z90.49 - Acquired absence of other specified parts of digestive tract (ICD- 10) History of hernia repair ?Z98.890 - Other specified postprocedural states (ICD-10) ?Z87.19 - Personal history of other diseases of the digestive system (ICD-10) S/P cystoscopy ?Z98.890 - Other specified postprocedural states (ICD-10) H/O transurethral resection of bladder tumor (TURBT) ?Z98.890 - Other specified postprocedural states (ICD-10) ?Z86.03 - Personal history of neoplasm of uncertain behavior (ICD-10) H/O transurethral resection of bladder tumor (TURBT) ?Z98.890 - Other specified postprocedural states (ICD-10) ?Z86.03 - Personal history of neoplasm of uncertain behavior (ICD-10) S/P cervical spinal fusion ?Z98.1 - Arthrodesis status (ICD-10) H/O prostatectomy ?Z90.79 - Acquired absence of other genital organ(s) (ICD-10) History of ankle surgery ?Z98.890 - Other specified postprocedural states (ICD-10) H/O shoulder surgery ?Z98.890 - Other specified postprocedural states (ICD-10) Family History Other Depression Family history of diabetes mellitus Family history of hypertension Social History Within the past year, how often did you have a drink containing alcohol: 2-4 times a month Smoking status: Former smoker Non-prescribed substance use: denies use Previous occupational history: retired Highest level of school completed/degree received: Associate degree: occupational, technical, vocational program Meds Home Medications and Allergies Home Medications ?Medication ?Instructions ?Recorded ?Confirmed ?Type diclofenac sodium 75 mg 75 mg PO BID 11/20/22 04/10/24 History tablet,delayed release fluticasone fur. 100 mcg-umeclid 1 inh inhalation DAILY 11/20/22 04/10/24 History 62.5 mcg-vilant 25 mcg inhalat.powder (Trelegy Ellipta) pantoprazole 40 mg tablet,delayed 40 mg PO DAILY 11/20/22 04/10/24 History release methocarbamol 500 mg tablet mg PO QDAY 04/21/23 History hydrocodone 5 mg-acetaminophen 325 1 tab PO DAILY PRN pain #30 tabs 02/17/24 04/10/24 Rx mg tablet metoprolol tartrate 50 mg tablet mg 04/10/24 History hydrocodone 5 mg-acetaminophen 325 1 tab PO DAILY PRN pain #30 tabs 05/29/24 Rx mg tablet Allergies Allergy/AdvReac Type Severity Reaction Status Date / Time codeine Allergy Unknown Hives Verified 04/10/24 09:57 acetaminophen (From Percocet) AdvReac ineffective Verified 04/10/24 09:57 oxycodone (From Percocet) AdvReac ineffective Verified 04/10/24 09:57 Exam Narrative Exam Narrative: Psych-alert and oriented x 3. Attentive and appropriate, constitutionally normal, displays normal mood and affect per situation.? There are no obvious deficits in memory, reasoning, or intellect.? Skin-no obvious rashes, bruising, erythema noted to the patient's area of pain. Extremities- extremities are warm with minimal edema and palpable pulses. Lumbar-no significant tenderness to palpation noted in the lumbar spine and paraspinal musculature.? Pain is elicited with extension, and lateral rotation of the lumbar spine. Range of motion is slightly diminished with these motions due to pain. Facet loading maneuvers are positive bilaterally and do appear to be concordant with the patient's normal complaints of pain. Sacroiliac - tender to palpation over left PSIS. Positive Brian's on the left. Positive thigh thrust on left.? Coordination remains intact.? Gait remains non-antalgic. Assessment and Plan Assessment and Plan (1) Sacroiliitis: Plan 74yom who presents for assessment. failed conservative measures, as noted. given symptoms and exam findings, prudent to attempt left sij injection under fluoroscopic guidance. he is in agreement. meds reviewed, refilled norco. follow up after procedure.
== END 2024-05-29 14:49 | disposition home or self-care (01) ==
PROVIDERS: PCP Family Medicine; Visit Provider Anesthesiology
DX: M46.1 Sacroiliitis, not elsewhere classified (principal)
CPT/HCPCS: G0463

== ENCOUNTER 2024-06-05 11:02 | Day surgery (SDC) | payer MEDICARE, SELFPAY ==
[2024-06-05 11:11] VITALS: BP 136/100; PULSE 116; TEMP 36.6; O2SAT 100
--- OUTSIDE RECORDS SUMMARY | 2024-06-05 11:20 | XMS_ITS | CCD ---
Author Organization [facility] Care Team Providers Care Technical Service Rep Name Role Phone MD Yolande Monterroso Primary Care Provider [phone] MD Lionel Whitney Attending Provider Yolande Monterroso Primary Care Physician Leidy Plummer Unavailable Unavailable MD Yolande Monterroso Primary Care Provider [phone] MD Lionel Whitney Attending Provider Zoran Chavez [...] Unavailable SCOTT, DR MEEHAN Consulting Unavailable HOY ., DR LANIER Consulting [...] Unavailable MD Yolande Monterroso Primary Care Provider [phone] MD Zroan Chavez Attending Provider [phone] MD Yolande Monterroso Primary Care Provider [phone] [...] Provider [phone] LIDA Lowery Attending Provider Yolande Monterroso MD Primary Care Provider [phone] WHITNEY, Lionel R Referring Unavailable WHITNEY, Lionel R Admitting Unavailable WHITNEY, Lionel R Attending Unavailable WHITNEY, Lionel R Attending Unavailable WHITNEY, Lionel R Attending Unavailable WHITNEY, Lionel R Attending Unavailable WHITNEY, Lionel R Attending Unavailable WHITNEY, Lionel R Attending Unavailable WHITNEY, Lionel R Referring Unavailable WHITNEY, Linoel R Admitting Unavailable CADY ESPINOSA Attending Unavailable YOLANDE MONTERROSO Primary Care Unavailable CADY ESPINOSA Referring Unavailable WHITNEY, Lionel R Attending Unavailable WHITNEY, Lionel R Attending Unavailable WHITNEY, Lionel R Admitting Unavailable Gimarivelitis , Andrius Kilgore Attending Unavailable Gieditis , Andrius Vyteli Attending Unavailable Giedraitis , Andrius Vytautas Attending Unavailable Giedraitis , Andrius Vytautas Attending Unavailable Allergies Allergy Classification Reported Allergen(s) Allergy Type Date of Onset Reaction(s) Facility (10 sources) Acetaminophen; Translations: [acetaminophen] Drug Allergy 0 Itching, Itching agitated, Itching agitated, aggitation [facility] (20 sources) Codeine; Translations: [Codeine] Drug Allergy 4 rash, Agitation [facility] (11 sources) oxyCODONE; Translations: [oxycodone] Drug Allergy 0 Itching, agitated, Itching, agitated, aggitation [facility] (16 sources) Acetaminophen / oxyCODONE; Translations: [acetaminophen-oxyc odone] Drug Allergy aggitation [facility] Comment on above: pt states this does not work for pt, pt is not allergic to vicodin (6 sources) cyclobenzaprine Drug Allergy 4 itching [facility] (6 sources) HYDROcodone Drug Allergy 4 anxiety [facility] (6 sources) tiZANidine Drug Allergy 4 hives [facility] (4 sources) Acetaminophen / HYDROcodone; Translations: [Vicodin] Drug Allergy [facility] Repository (2 sources) Acetaminophen / oxyCODONE Drug Allergy [facility] Repository (1 source) atorvastatin Drug Allergy [facility] Repository (2 sources) tiZANidine Drug Allergy [facility] Repository (1 source) cyclobenzaprine Drug Allergy 4 [facility] Repository (1 source) HYDROcodone Drug Allergy 4 [facility] Repository (1 source) tiZANidine Drug Allergy [address] [place] [address] Repository (2 sources) Acetaminophen / oxyCODONE; Translations: [Percocet 5/325] Drug Allergy [facility] Repository Medications Current Medications Medication Drug Class(es) Dates Sig (Normalized) Sig (Original) acetaminophen 325 mg / HYDROcodone bitartrate 5 mg oral tablet (7 sources) Opioid Agonist Start: 08-12-2023 take 1 tablet by mouth every twenty-four hours as needed HYDROcodone-aceta minophen ([place]) 5-325 mg tablet Take 1 tablet by [...] needed for pain, Refill(s) 0 Start Date: 8/16/23 Status: Ordered carvedilol 25 mg oral tablet (20 sources) alpha-Adrenergic Boogie, beta-Adrenergic Boogie Start: 10-17-2021 take 25 mg by mouth twice daily Carvedilol Active 25 MG PO Twice daily October 17, 2021 12:00am Start: 09-19-2021 take 2 tablets by mo [facility] twice daily carvedilol 6.25 mg [...] 07, 2019 1:00am April 19, 2020 8:04am Ndkauqtgcbc-Gjjserxqc-Gpscii er (11 sources) Anticholinergic, Corticosteroid, beta2-Adrenergic Agonist Start: 08-07-2019 Fwcwjmyyjvt-Honsrtapd-Ubyles er (Trelegy Ellipta) 100-62.5-25 mcg Blister With [...] procedure, # 2 tab(s), Refills(s) 0, Pharmacy: [facility]/pharmacy #[id number], 170, cm, 10/26/23 11:14:00 EDT, Height/Length Dosing, 84, kg, 10/04/23 10:36:00 EDT, Weight Dosing Start Date: 04/13/24 Status: Ordered Start: 01-20-2023 take 1 tablet by barry th once daily Cipro 500 mg Tab 500 mg = 1 tab(s), Oral, Daily, take one tab day before procedure and one tab after procedure, # 2 tab(s), Refills(s) 0, Pharmacy: [facility]/pharmacy #[id number], 170, cm, 01/20/23 10:45:00 EDT, Height/Length Dosing, 83.5, kg, 01/20/23 10:45:00 EDT, Weight Dosing Start Date: 01/20/23 Status: Ordered Start: 12-31-2022 take 1 tablet by barry th once daily Cipro 500 mg Tab 500 mg = 1 tab(s), Oral, Daily, Take 1 tablet the day before the procedure and 1 tablet after the procedure, # 6 tab(s), Refills(s) 0, Pharmacy: [facility]/pharmacy #[id number], 170, cm, 09/22/22 12:23:00 EDT, Height/Length Dosing, 78, kg, 02/24/22 10:53:00 EDT, W... Start Date: 12/31/22 Status: Ordered Start: 07-02-2022 take 1 tablet by barry th once daily Cipro 500 mg Tab 500 mg = 1 tab(s), Oral, Daily, Take 1 tablet the day before the procedure and 1 tablet after the procedure, # 6 tab(s), Refills(s) 0, Pharmacy: [facility]/pharmacy #[id number], 170, cm, 02/24/22 10:53:00 EDT, Height/Length Dosing, 78, kg, 02/24/22 10:53:00 EDT, W... Start Date: 07/02/22 Status: Ordered Start: 11-05-2021 take 1 tablet by abrry th once daily Cipro 500 mg Tab 500 mg = 1 tab(s), Oral, Daily, Take 1 tab at nighttime prior to the day of procedure, then 1 tab right after the procedure, # 2 tab(s), Refills(s) 0, Pharmacy: [facility]/pharmacy #[id number], 170, cm, 11/05/21 11:37:00 EDT, [...] procedure, # 2 cap(s), Refills(s) 0, Pharmacy: [facility]/pharmacy #[id number], 188, cm, 02/10/23 14:22:00 EDT, [...] period., # 30 tab(s), Refills(s) 3, Pharmacy: [id number], 170, cm, 10/04/23 10:36:00 EDT, [...] period., # 30 tab(s), Refills(s) 3, Pharmacy: [facility], 170, cm, 02/24/22 10:53:00 EDT, Height/Length Dosing, 78, kg, 02/24/22 10:53:00 EDT, Weight Dosing Start Date: 07/05/22 Status: Ordered Start: 09-19-2021 sildenafil 100 mg Tab 100 mg = 1 tab(s), Oral, Daily, Take 1 pill 30 minutes prior to sexual relations, # 30 tab(s), Refills(s) 3, Pharmacy: [facility], 170, cm, 09/19/21 10:16:00 [...] d one radical prostectomy at [facility] Cancer of prostate (20 sources) [...] region] Episodic Other aftercare (3 sources) Other terminal operations supervisor (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 Comment on above: Result Comment: A:Ur ine,Urine:Voided Interpretation - Occasional atypical urothelial cells with degenerative changes. CPT 87723 MicroScopic Description - Adequacy - Gross Description Site ID:A color Yellow fixative Alcohol Specimen designated Urine received in alcohol preservative and labeled with the patient???s name, consists of 40ml clear yellow fluid. Electronically signed by : on: 05/29/2024 13:16:19 Performed By: #### 1 [id number] #### [facility] [address] [place] [address] Urine Cytology ([facility])on 07-23-2023 Method of Extraction Voided Normal [facility] Comment on above: Performed By: #### 1 [id number] #### [facility] [address] Number of Jars [address] [facility] Comment on above: Performed By: #### 1 [id number] #### [facility] [address] [place] [address] UC Specimen Urine Normal [facility] Comment on above: Performed By: #### 1 [id number] #### [facility] [address] [place] [address] UC Type of Service Technical Only Normal [facility] Comment on above: Performed By: #### 1 [id number] #### [facility] [address] [place] [address] UroVysion Fish and Urine Cyt o ([facility])on 05-15-2024 UVFISH & UC Diagnosis Info Invalid Interpretation Code [facility] Comment on above: Result Comment: Rodrick huggins Description Electronically signed by : on: 05/15/2024 11:58:17 Performed By: #### 1 [id number] #### [facility] [address] [place] [address] Main OR Intraoperative Recor don 05-09-2024 Main OR Intraoperative Record Main OR Intraoperative Record IntraOp Document Type FTURO Summary Primary Physician: Lionel WHITNEY MD Finalized Date/Time: 05/09/24 09:43:24 Pt. Name: EMILYMARY/Sex: 1950 Male Med Rec #: [id number] Physician: Lionel WHITNEY MD Financial #: [id number] Pt. 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 Surgeon Description CYSTOSCOPY WITH FISH & CYTOLOGY Primary Procedure Yes Primary Surgeon Lionel WHITNEY MD Start 05/09/24 09:33:00 Stop 05/09/24 09:37:00 Anesthesia Type Local Surgical Service Urology Wound Class 2 - Clean-Contaminated Last Modified By: Frances Byrnes RN 05/09/24 09:38:22 General Case Data FTURO Pre-Care Text: Classifies surgical wound, implements aseptic technique, initiates traffic control Entry 1 Case Information OR URO 1 FT Case Level None Wound Class 2 - Clean-Contaminated Specialty Urology Preop Diagnosis HISTORY OF BLADDER AND Postop Same As Preop Yes PROSTATE CANCERS Postop Diagnosis HISTORY OF BLADDER AND Outcomes Met? Yes PROSTATE CANCERS Last Modified By: Frances Byrnes RN 05/09/24 09:26:44 Post-Care Text: The patient is [...] Verified (If Participants Fitz ZELAYA, Frances Applicable) [facility] [employer], Nanci A Time Out Complete 05/09/24 09:33:00 Allergies Reviewed? [...] Outcomes Met? Yes Last Modified By: Frances Byrens RN 05/09/24 09:33:07 Post-Care Text: The patient [...] By: Frances Byrnes RN 05/09/24 09:[address] [facility] Main OR Preoperative Recordo n 05-09-2024 Main OR Preoperative Record Main OR Preoperative Record Holding Area Document Type FTURO Summary Primary Physician: Lionel WHITNEY MD Finalized Date/Time: 05/09/24 09:28:03 Pt. Name: MARY DIAZ/Sex: 1950 Male Med Rec #: [id number] Physician: Lionel WHITNEY MD Financial #: [id number] Pt. Type: O Room/Bed: / Admit/Disch: 05/09/24 [...] Complaints of Pain: No Skin Integrity Intact, Pike, Warm, & Dry Vitals - EU Blood Pressure 190/90 Pulse 78 bpm Respirations 18 br/min SPO2 96 % Additional FISH RN Reviewed Yes Specimens Collected Last Modified By: Frances Byrnes RN 05/09/24 09:28:01 Finalized By: Frances Byrnes RN Document Signatures Signed By: Esther Boyd LPN 05/09/24 09:10 Frances Byrnes RN 05/09/24 09:[address] [facility] Operative Reporton Operative Report Operative Report Patient: [...] with antibiotic coverage, Follow up arranged. Normal [facility] Comment on above: Result Comment: Elec tronically Signed By: Lionel WHITNEY MD\.br\Date and Time Signed: 05/09/24 09:48 EST UroVysion Fish and Urine Cyt o ([facility])on 05-09-2024 [facility] Method of Extraction Voided Normal [facility] Comment on above: Performed By: #### 1 [id number] #### [facility] [address] [place] [address] [facility] Number of Jars [address] [facility] Comment on above: Performed By: #### 1 [id number] #### [facility] [address] [place] [address] [facility] Specimen Urine Normal [facility] Comment on above: Performed By: #### 1 [id number] #### [facility] [address] [place] [address] [facility] Type of Service Technical Only Normal [facility] Comment on above: Performed By: #### 1 [id number] #### [facility] [address] [place] [address] ECG 12 Leadon 05-08-2024 [facility] Work Phone: Reminderson 04-13-2024 Reminders Reminders From: Loretta Simons To: EU - Recalls Whitney; Sent: 04/13/2024 11:42:40 EDT Show up: 08/19/2024 11:42:00 EST Subject: Cysto/Needs FISH/cytol Due Date/Time: 09/11/2024 11:42:00 EDT Reminder/Recall Patient is due in October 2024 for 6 month cysto/fish/cytol, bt ck Normal [facility] Reminders Reminders From: Loretta Simons To: EU - Recalls Whitney; Cc: Loretta Simons; Sent: 06/28/2023 10:52:09 EST Show up: 09/20/2023 10:52:00 EDT Subject: Cysto/6 mo Due Date/Time: 10/11/2023 10:52:00 EDT Reminder/Recall Patient is due in October 2023 for 6 month cysto/fish/cytol, PSA (bt ck) Spoke to austyn hendricks for 10/26/23 at [facility]. LG Patient will be due in Apr 2024 for 6 month cysto/fish/cytol (bt ck) Spoke to eladio sched for 05/09/24 at [facility].LG Normal [facility] Patient Educationon 11-26-19 Patient Education Urology Varicocelectomy [...] including vitamins, herbs, eye drops, creams, and ovvy-ttf-akklbwi medicines. ? Any problems you or family [...] tells you to take them. ? Taking noix-sej-fusqrei medicines, vitamins, herbs, and supplements. General instructions [...] health c (more content not included)... Normal [facility] UroVysion Fish and Urine Cyt o ([facility])on 11-02-2023 [facility] & UC Diagnosis Info Invalid Interpretation Code [facility] Comment on above: Result Comment: [...] on: 11/02/2023 10:22:27 Performed By: #### 1 [id number] ####[facility] [address] [place] [address] Consent for Procedure/Surger yon 10-26-2023 Consent for Procedure/Surgery [id number]# 1.00TIFF Normal [facility] Consent for Treatmenton Consent for Treatment [id number]#[address] [facility] IntraOperative Documentson 0 10-26-2023 IntraOperative Documents [id number]# 1.00TIFF Tran [facility] Main OR Intraoperative Recor don 10-26-2023 Main OR Intraoperative Record IntraOp Document Type FTURO Summary Primary Physician: Lionel WHITNEY MD Finalized Date/Time: 10/26/23 11:57:52 Pt. Name: EMILYMARY SARMIENTO/Sex: 1950 Male Med Rec #: [id number] Physician: Lionel WHITNEY MD Financial #: [id number] Pt. 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 Condition Intact, Pike, Warm, and Description REDDED DOTS ON Dry, [...] 10/26/23 11:57 Fabiana Galaviz 10/26/23 11:[address] [facility] Main OR Preoperative Recordo n 10-26-2023 Main OR Preoperative Record Holding Area Document Type FTURO Summary Primary Physician: Loinel WHITNEY MD Finalized Date/Time: 10/26/23 11:16:48 Pt. Name: EMILYMARY./Sex: 1950 Male Med Rec #: [id number] Physician: Lionel WHITNEY MD Financial #: [id number] Pt. Type: O Room/Bed: / Admit/Disch: 10/26/23 [...] 11:11 Nanci Cortes RN 10/26/23 11:[address] [facility] Operative Reporton Operative Report Patient: [...] with antibiotic coverage, Follow up arranged. Normal [facility] Comment on above: Result Comment: Elec tronically Signed By: Lionel WHITNEY MD\.br\Date and Time Signed: 10/26/23 11:58 EDT Outpatient Surgery Discharge Instructionon 10-26-2023 Outpatient Surgery Discharge Instruction [id number]# 1.00TIFF Normal [facility] UroVysion Fish and Urine Cyt o ([facility])on 10-26-2023 [facility] Method of Extraction Voided Normal [facility] Comment on above: Performed By: #### 1 [id number] ####[facility] [address] [place] [address] [facility] Number of Jars [address] [facility] Comment on above: Performed By: #### 1 [id number] ####[facility] [address] [place] [address] [facility] Specimen Urine Normal [facility] Comment on above: Performed By: #### 1 [id number] ####[facility] [address] [place] [address] [facility] Type of Service Technical Only Normal [facility] Comment on above: Performed By: #### 1 [id number] ####[facility] [address] [place] [address] Ambulatory Visit Summaryon 0 10-04-2023 Ambulatory Visit [...] Wednesday. 2023 12:00 PM EDT With: Where: [facility] Urology Surgical Services Wednesday. 2023 10:00 AM EDT With: Where: [facility] Surgical Services Wednesday 10:15 AM EDT With: DEVONTE NOBLE, Lionel Burgos Where: [facility] Patient Educationon 10-04-19 24 Patient Education Oncology [...] if anything looks unusual. Men with a jzsnmf-suvv-kmpobb risk for skin cancer may want to see a franchise specialist (consultant internship) for an annual body check. What are the benefits of screening? Cancer screening is done to look for cancer in the very early stages, before it spreads and becomes harder to treat and before you would start to notice symptoms. Finding cancer early improves the chances of successful treatment. It ma (more content not included)... Normal [facility] Urology Office/Clinic Noteon 10-04-2023 Urology Office/Clinic [...] Urology [address], [place] [address] [id number] Additional Instructions: 1 yr w/ PSA Patient [...] inhalation po (more content not included)... Normal [facility] Comment on above: Result Comment: Elec tronically Signed By: Lionel WHITNEY MD\.br\Date and Time Signed: 10/04/23 11:16 EDT\.br\Electronically Co-Signed By: Lilo Zhou\.br\Date and Time Co-Signed: 10/04/23 11:14 EDT Lab Reportson 09-22-2023 Lab Reports [id number]#[address] [facility] MR cervical spine wo/w conon 08-29-2023 MR cervical spine wo/w con [facility] [place] [address] MRI Report Signed Patient: Mary Diaz MR#: [id number] : 1950 Acct:[id number] Age/Sex: 73 / M ADM Date: 08/28/23 Loc: MR Room: Type: [facility] Attending Dr: Esther HILTON Copies to: [...] Lupe Campos M.D.08/29/2023 1:06 PM Dictation Location: [place] [address] Transcribed By: [facility] 08/29/23 1306 Dictated By: Lupe Campos MD 08/29/23 1254 Signed By: 08/29/23 1306 [facility] Creatinine (Bld) [Mass/Vol]O rdered By: Esther Lowery on 08-28-2023 Creatinine [Mass/Vol] 1.2 mg/dL 0.6-1.3 [facility] Comment on above: ER/ESD physician is notified/shown all ISTAT results.Critical values may be confirmed by laboratory testing ifdeemed necessary by ER attending doctor. ISTAT XRay CREon 08-28-2023 Creatinine [Mass/Vol] 1.2 mg/dL Normal 0.6-1.3 [facility] Comment on above: Result Comment: ER/E SD physician is notified/shown all ISTAT results. Critical values may be confirmed by laboratory testing if deemed necessary by ER attending doctor. Performed By: #### I SCRE #### [address] ISTAT GFR > 60.0 Normal [facility] Comment on above: Result Comment: PERF ORMED BY: [place] [address] PATHOLOGIST DRUG SAFETY PHYSICIAN JENARO FLOREZ M.D. Performed By: #### I SCRE #### [address] No Panel InformationOrdered By: Esther Lowery on 08-28-2023 Bedside Estimated GFR (eGFR) > 60.0 [facility] XR cervical spine LAT/FLX/EX Ton 08-12-2023 XR cervical spine LAT/FLX/EXT [facility] Main [place] [address] [place] [address] XRay Report Signed Patient: Mary Diaz MR#: [id number] : 1950 Acct:[id number] Age/Sex: 73 / M ADM Date: 08/12/23 Loc: XD Room: Type: [facility] Attending Dr: Esther HILTON Copies to: LIDA [...] Kenny Leahy M.D.08/12/2023 3:29 PM Dictation Location: RADIO-PC-14 Transcribed By: NGA 08/12/23 1529 Dictated By: Kenny Leahy DO 08/12/23 1528 Signed By: 08/12/23 1529 [facility] XR lumbar spine 6V w bending on 08-12-2023 XR lumbar spine 6V w bending [facility] Main [place] [address] [place] [address] XRay Report Signed Patient: Mary Diaz MR#: [id number] : 1950 Acct:[id number] Age/Sex: 73 / M ADM Date: 08/12/23 Loc: XD Room: Type: [facility] Attending Dr: Esther BASILIOC Copies to: LIDA [...] Kenny Leahy M.D.08/12/2023 3:28 PM Dictation Location: Inogen-14 Transcribed By: NGA 08/12/23 1528 Dictated By: Kenny Leahy DO 08/12/23 1526 Signed By: 08/12/23 1528 [facility] MR lumbar spine wo conon 07- 14-2023 MR lumbar spine wo con [facility] Main [place] [address] [place] [address] MRI Report Signed Patient: Mary Diaz MR#: [id number] : 1950 Acct:[id number] Age/Sex: 72 / M ADM Date: 01/01/23 Loc: MR Room: Type: [facility] Attending Dr: Zoran Chavez [...] Jamaica Alas M.D.01/01/2023 2:48 PM Dictation Location: [place] [address] Transcribed By: [facility] 01/01/23 1448 Dictated By: Jamaica Alas II, MD 01/01/23 1441 Signed By: 01/01/23 1448 Normal [facility] XR CSPINE MIN 4 VIEWSon XR [...] ALLI CORTES Date: 2022-10-23 11:53 Normal [facility] XR LSPINE W_OBLS AND FLEX_EX Ton 05-05-2023 XR LSPINE W_OBLS AND FLEX_EXT EXAM: XR LSPINE W_OBLS AND FLEX_EXT HISTORY: Low back pain COMPARISON: None. TECHNIQUE: 2 views Findings/impression: Retrolisthesis of L2 over L3 by 4 mm. Multilevel endplate degenerative changes, disc disease, and anterior spurring. Calcified atherosclerotic disease of aorta. No acute fracture. Electronically authenticated by: JAMAICA GONZALEZ Date: 2022-10-23 13:18 Normal [facility] BNPon 10-06-2022 Natriuretic peptide B (Bld) [Mass/Vol] 844.0 pg/mL Normal <=900.0 [facility] Comment on above: Performed By: #### C VDTB #### [facility] [address] [place] [address] Dr. Johnna Dixon CBC AUTO DIFFon 10-06-2022 BASO # 0.0 103/ul Normal 0.0-0.1 [facility] Comment on above: Performed By: #### C BC #### [facility] [address] [place] [address] Dr. Johnna Dixon Basophils/100 WBC (Bld) 0.0 % Critically low 0.2-2.0 [facility] Comment on above: Performed By: #### C BC #### [facility] [address] [place] [address] Dr. Johnna Dixon EO # 0.0 103/ul Normal 0.0-0.7 [facility] Comment on above: Performed By: #### C BC #### [facility] [address] [place] [address] Dr. Johnna Dixon Eosinophils/100 WBC (Bld) 0.0 % Critically low 0.9-7.0 [facility] Comment on above: Performed By: #### C BC #### [facility] [address] [place] [address] Dr. Johnna Dixon Erythrocyte distribution width (RBC) [Ratio] 13.9 % Normal 11.0-15.0 [facility] Comment on above: Performed By: #### C BC #### [facility] [address] [place], [place] [id number] Dr. Johnna Dixon Hematocrit (Bld) [Volume fraction] 33.6 % Critically low 42.0-54.0 [facility] Comment on above: Performed By: #### C BC #### [facility] [address] [place] [address] Dr. Johnna Dixon Hemoglobin (Bld) [Mass/Vol] 11.1 g/dL Critically low 14.0-18.0 [facility] Comment on above: Performed By: #### C BC #### [facility] [address] [place] [address] Dr. Johnna Dixon IG # 0.03 10e3/ul Normal 0.00-0.03 [facility] Comment on above: Performed By: #### C BC #### [facility] [address] [place] [address] Dr. Johnna Dixon IG % 0.5 % Normal 0.0-0.5 [facility] Comment on above: Performed By: #### C BC #### [facility] [address] [place] [address] Dr. Johnna Dixon LYMPH # 0.7 103/ul Critically low 1.2-3.8 [facility] Comment on above: Performed By: #### C BC #### [facility] [address] [place] [address] Dr. Johnna Dixon Lymphocytes/100 WBC (Bld) 11.5 % Critically low 20.5-60.0 [facility] Comment on above: Performed By: #### C BC #### [facility] [address] [place] [address] Dr. Johnna Dixon MANUAL DIFF REQ NO Normal [facility] Comment on above: Performed By: #### C BC #### [facility] [address] [place] [address] Dr. Johnna Dixon MCH (RBC) [Entitic mass] 31.0 pg Normal 25.9-34.0 [facility] Comment on above: Performed By: #### C BC #### [facility] [address] [place] [address] Dr. Johnna Dixon MCHC (RBC) [Mass/Vol] 33.0 g/dL Normal 29.9-35.2 [facility] Comment on above: Performed By: #### C BC #### [facility] [address] [address] [address] Johnna Dixon MCV (RBC) [Entitic vol] 93.9 fL Normal 80.0-94.0 [facility] Comment on above: Performed By: #### C BC #### [facility] [address] [address] [address] Johnna Dixon MONO # 0.3 103/ul Normal 0.3-0.8 [facility] Comment on above: Performed By: #### C BC #### [facility] [address] [place] [address] Dr. Johnna Dixon Monocytes/100 WBC (Bld) 4.5 % Normal 1.7-12.0 [facility] Comment on above: Performed By: #### C BC #### [facility] [address] [place] [address] Dr. Johnna Dixon NEUT # 5.0 103/ul Normal 1.4-6.5 [facility] Comment on above: Performed By: #### C BC #### [facility] [address] [place] [address] Dr. Johnna Dixon Neutrophils/100 WBC (Bld) 83.5 % Critically high 43.0-75.0 [facility] Comment on above: Performed By: #### C BC #### [facility] [address] [place] [address] Dr. Johnna Dixon Platelet mean volume (Bld) [Entitic vol] 10.3 fL Normal 9.5-13.5 [facility] Comment on above: Performed By: #### C BC #### [facility] [address] [place] [address] Dr. Johnna Dixon PLT 184 103/ul Normal 150-450 [facility] Comment on above: Performed By: #### C BC #### [facility] [address] [place] [address] Dr. Johnna Dixon RBC 3.58 106/ul Critically low 4.70-6.10 [facility] Comment on above: Performed By: #### C BC #### [facility] [address] [place] [address] Dr. Johnna Dixon WBC 6.0 103/ul Normal 4.0-11.0 [facility] Comment on above: Performed By: #### C BC #### [facility] [address] [place] [address] Dr. Johnna Dixon PROF 14(COMP METB)on 023 Albumin [Mass/Vol] 2.7 g/dL Critically low 3.4-5.0 [facility] Comment on above: Performed By: #### C VDTBH #### [facility] [address] [place] [address] Dr. Johnna Dixon Albumin/Globulin [Mass ratio] 0.9 {ratio} Normal [facility] Comment on above: Performed By: #### C VDTBH #### [facility] [address] [place] [address] Dr. Johnna Dixon ALP [Catalytic activity/Vol] 32 U/L Critically low 46-116 [facility] Comment on above: Performed By: #### C VDTBH #### [facility] [address] [place] [address] Dr. Johnna Dixon ALT [Catalytic activity/Vol] 19 U/L Normal 16-63 [facility] Comment on above: Performed By: #### C VDTBH #### [facility] [address] [place] [address] Dr. Johnna Dixon Anion gap [Moles/Vol] 14.0 mmol/L Normal [facility] Comment on above: Performed By: #### C VDTBH #### [facility] [address] [place] [address] Dr. Johnna Dixon AST [Catalytic activity/Vol] 12 U/L Critically low 15-37 [facility] Comment on above: Performed By: #### C VDTBH #### [facility] [address] [place] [address] Dr. Johnna Dixon Bilirubin [Mass/Vol] 0.6 mg/dL Normal 0.2-1.0 [facility] Comment on above: Performed By: #### C VDTBH #### [facility] [address] [place] [address] Dr. Johnna Dixon Calcium [Mass/Vol] 8.3 mg/dL Critically low 8.5-10.1 [facility] Comment on above: Performed By: #### C VDTBH #### [facility] [address] [place] [address] Dr. Johnna Dixon Chloride [Moles/Vol] 107 mmol/L Normal 98-107 [facility] Comment on above: Performed By: #### C VDTBH #### [facility] [address] [place] [address] Dr. Johnna Dixon CO2 [Moles/Vol] 24.9 mmol/L Normal 21.0-32.0 [facility] Comment on above: Performed By: #### C VDTBH #### [facility] [address] [place] [address] Dr. Johnna Dixon Creatinine [Mass/Vol] 1.20 mg/dL Normal 0.70-1.30 [facility] Comment on above: Performed By: #### C VDTBH #### [facility] [address] [place] [address] Dr. Johnna Dixon EGFR-AF GAMBIAN >60 Normal >=60 [facility] Comment on above: Performed By: #### C VDTBH #### [facility] [address] [place] [address] Dr. Johnna Dixon EGFR-NON AF GAMBIAN 60 mL/min/1.73m2 Normal >=60 [facility] Comment on above: Performed By: #### C VDTBH #### [facility] [address] [place] [address] Dr. Johnna Dixon Globulin (S) [Mass/Vol] 2.9 g/dL Normal [facility] Comment on above: Performed By: #### C VDTBH #### [facility] [address] [place] [address] Dr. Johnna Dixon Glucose [Mass/Vol] 153 mg/dL Critically high 74-106 [facility] Comment on above: Performed By: #### C VDTBH #### [facility] [address] [place] [address] Dr. Johnna Dixon Potassium [Moles/Vol] 3.9 mmol/L Normal 3.5-5.1 [facility] Comment on above: Performed By: #### C VDTBH #### [facility] [address] [place] [address] Dr. Johnna Dixon Protein [Mass/Vol] 5.6 g/dL Critically low 6.4-8.2 [facility] Comment on above: Performed By: #### C VDTBH #### [facility] [address] [place] [address] Dr. Johnna Dixon Sodium [Moles/Vol] 142 mmol/L Normal 136-145 [facility] Comment on above: Performed By: #### C VDTBH #### [facility] [address] [place] [address] Dr. Johnna Dixon Urea nitrogen [Mass/Vol] 14.0 mg/dL Normal 7.0-18.0 [facility] Comment on above: Performed By: #### C VDTBH #### [facility] [address] [place] [address] Dr. Johnna Dixon Urea nitrogen/Creatinine [Mass ratio] 11.7 mg/mg Normal [facility] Comment on above: Performed By: #### C VDTBH #### [facility] [address] [place] [address] Dr. Johnna Dixon CBC AUTO DIFFon 10-05-2022 BASO # 0.0 103/ul Normal 0.0-0.1 [facility] Comment on above: Performed By: #### S PUTGS #### [facility] [address] [place] [address] Dr. Johnna Dixon Basophils/100 WBC (Bld) 0.2 % Normal 0.2-2.0 [facility] Comment on above: Performed By: #### S PUTGS #### [facility] [address] [address] [address] Johnna Dixon EO # 0.0 103/ul Normal 0.0-0.7 [facility] Comment on above: Performed By: #### S PUTGS #### [facility] [address] [place] [address] Dr. Johnna Dixon Eosinophils/100 WBC (Bld) 0.2 % Critically low 0.9-7.0 [facility] Comment on above: Performed By: #### S PUTGS #### [facility] [address] [place] [address] Dr. Johnna Dixon Erythrocyte distribution width (RBC) [Ratio] 14.1 % Normal 11.0-15.0 [facility] Comment on above: Performed By: #### S PUTGS #### [facility] [address] [place] [address] Dr. Johnna Dixon Hematocrit (Bld) [Volume fraction] 39.9 % Critically low 42.0-54.0 [facility] Comment on above: Performed By: #### S PUTGS #### [facility] [address] [place] [address] Dr. Johnna Dixon Hemoglobin (Bld) [Mass/Vol] 12.8 g/dL Critically low 14.0-18.0 [facility] Comment on above: Performed By: #### S PUTGS #### [facility] [address] [place] [address] Dr. Johnna Dixon IG # 0.01 10e3/ul Normal 0.00-0.03 [facility] Comment on above: Performed By: #### S PUTGS #### [facility] [address] [place] [address] Dr. Johnna Dixon IG % 0.2 % Normal 0.0-0.5 [facility] Comment on above: Performed By: #### S PUTGS #### [facility] [address] [place] [address] Dr. Johnna Dixon LYMPH # 0.7 103/ul Critically low 1.2-3.8 [facility] Comment on above: Performed By: #### S PUTGS #### [facility] [address] [address] [address] Johnna Dixon Lymphocytes/100 WBC (Bld) 14.3 % Critically low 20.5-60.0 [facility] Comment on above: Performed By: #### S PUTGS #### [facility] [address] [address] [address] Johnna Dixon MANUAL DIFF REQ NO Normal [facility] Comment on above: Performed By: #### S PUTGS #### [facility] [address] [address] [address] Johnna Dixon MCH (RBC) [Entitic mass] 30.7 pg Normal 25.9-34.0 [facility] Comment on above: Performed By: #### S PUTGS #### [facility] [address] [place] [address] Dr. Johnna Dixon MCHC (RBC) [Mass/Vol] 32.1 g/dL Normal 29.9-35.2 [facility] Comment on above: Performed By: #### S PUTGS #### [facility] [address] [address] [address] Johnna Dixon MCV (RBC) [Entitic vol] 95.7 fL Critically high 80.0-94.0 [facility] Comment on above: Performed By: #### S PUTGS #### [facility] [address] [place] [address] Dr. Johnna Dixon MONO # 0.6 103/ul Normal 0.3-0.8 [facility] Comment on above: Performed By: #### S PUTGS #### [facility] [address] [place] [address] Dr. Johnna Dixon Monocytes/100 WBC (Bld) 12.5 % Critically high 1.7-12.0 [facility] Comment on above: Performed By: #### S PUTGS #### [facility] [address] [address] [address] Johnna Dixon NEUT # 3.6 103/ul Normal 1.4-6.5 [facility] Comment on above: Performed By: #### S PUTGS #### [facility] [address] [address] [address] Johnna Dixon Neutrophils/100 WBC (Bld) 72.6 % Normal 43.0-75.0 [facility] Comment on above: Performed By: #### S PUTGS #### [facility] [address] [address] [address] Johnna Dixon Platelet mean volume (Bld) [Entitic vol] 9.5 fL Normal 9.5-13.5 [facility] Comment on above: Performed By: #### S PUTGS #### [facility] [address] [address] [address] Johnna Dixon PLT 213 103/ul Normal 150-450 [facility] Comment on above: Performed By: #### S PUTGS #### [facility] [address] [place] [address] Dr. Johnna Dixon RBC 4.17 106/ul Critically low 4.70-6.10 [facility] Comment on above: Performed By: #### S PUTGS #### [facility] [address] [place] [address] Dr. Johnna Dixon WBC 5.0 103/ul Normal 4.0-11.0 [facility] Comment on above: Performed By: #### S PUTGS #### [facility] [address] [place] [address] Dr. Johnna Dixon CULTURE BLOODon 10-05-2022 Microscopic examination of blood, culture Culture Observations: NO GROWTH AT [address] [facility] Comment on above: Performed By: #### B LDCX2 #### [facility] [address] [place] [address] Dr. Johnna Dixon Microscopic examination of blood, culture Culture Observations: NO GROWTH AT [address] [facility] Comment on above: Performed By: #### S PUTGS #### [facility] [address] [place] [address] Dr. Johnna Dixon CULTURE SPUTUMon 10-05-2022 CULTURE SPUTUM Culture Observations : NORMAL RESPIRATORY JONATAN. Normal [facility] Comment on above: Performed By: #### S PUTGS #### [facility] [address] [place] [address] Dr. Johnna Dixon Covid-19 PCR (CVDTB)on 09-19 SARS-CoV-2 (COVID-19) RNA REX+probe Ql (Unsp spec) Not detected Normal NOT DETECTED [facility] Comment on above: Result Comment: This test is not yet approved or cleared by the [place] FDA. When there are no FDA-approved or cleared tests available, and other criteria are met, FDA can make tests available under an emergency access mechanism called an Emergency Use Authorization (EUA). The EUA for this test is supported by the [employer] of Health and Human Service's (HHS's) declaration [...] SARS-CoV-2. Performed By: #### C VDTBH #### [facility] [address] [place] [address] Dr. Johnna Dixon LACTATE/LACTIC ACIDon 2022 Lactate [Moles/Vol] 1.2 mmol/L Normal 0.4-2.0 [facility] Comment on above: Performed By: #### L ACT #### [facility] [address] [place] [address] Dr. Johnna Dixon Lactate [Moles/Vol] 2.4 mmol/L Critically high 0.4-2.0 [facility] Comment on above: Performed By: #### L ACT #### [facility] [address] [place] [address] Dr. Johnna Dixon PROF CHEM 8 (BAS METB)on Anion gap [Moles/Vol] 12.6 mmol/L Normal [facility] Comment on above: Performed By: #### B MP #### [facility] [address] [address] [address] Johnna Dixon Calcium [Mass/Vol] 8.9 mg/dL Normal 8.5-10.1 [facility] Comment on above: Performed By: #### B MP #### [facility] [address] [address] [address] Johnna Dixon Chloride [Moles/Vol] 106 mmol/L Normal 98-107 [facility] Comment on above: Performed By: #### B MP #### [facility] [address] [address] [address] Johnna Dixon CO2 [Moles/Vol] 25.8 mmol/L Normal 21.0-32.0 [facility] Comment on above: Performed By: #### B MP #### [facility] [address] [address] [address] Johnna Dixon Creatinine [Mass/Vol] 1.41 mg/dL Critically high 0.70-1.30 [facility] Comment on above: Performed By: #### B MP #### [facility] [address] [address] [address] Johnna Dixon EGFR-AF GAMBIAN >60 Normal >=60 [facility] Comment on above: Performed By: #### B MP #### [facility] [address] [address] [address] Johnna Dixon EGFR-NON AF GAMBIAN 50 mL/min/1.73m2 Critically low >=60 [facility] Comment on above: Performed By: #### B MP #### [facility] [address] [address] [address] Johnna Dixon Glucose [Mass/Vol] 111 mg/dL Critically high 74-106 [facility] Comment on above: Performed By: #### B MP #### [facility] [address] [address] [address] Johnna Dixon Potassium [Moles/Vol] 3.4 mmol/L Critically low 3.5-5.1 [facility] Comment on above: Performed By: #### B MP #### [facility] [address] [address] [address] Johnna Dixon Sodium [Moles/Vol] 141 mmol/L Normal 136-145 [facility] Comment on above: Performed By: #### B MP #### [facility] [address] [address] [address] Johnna Dixon Urea nitrogen [Mass/Vol] 17.0 mg/dL Normal 7.0-18.0 [facility] Comment on above: Performed By: #### B MP #### [facility] [address] [address] [address] Johnna Dixon Urea nitrogen/Creatinine [Mass ratio] 12.1 mg/mg Normal [facility] Comment on above: Performed By: #### B MP #### [facility] [address] [place] [address] Dr. Johnna Dixon SPUTUM GRAM STAINon 10-06-[address] [facility] Comment on above: Performed By: #### S PUTGS #### [facility] [address] [address] [address] Johnna Dixon DIPHTHEROIDS Normal [facility] Comment on above: Performed By: #### S PUTGS #### [facility] [address] [address] [address] Johnna Dixon EPITHELIALS <[address] [facility] Comment on above: Performed By: #### S PUTGS #### [facility] [address] [address] [address] Johnna Dixon FUNGAL ELEMENTS Normal [facility] Comment on above: Performed By: #### S PUTGS #### [facility] [address] [place] [address] Dr. Johnna Dixon GRAM NEG BACILLI FEW Normal [facility] Comment on above: Performed By: #### S PUTGS #### [facility] [address] [address] [address] Johnna MILLS NEG DIPPLOCOCCI Normal [facility] Comment on above: Performed By: #### S PUTGS #### [facility] [address] [place] [address] Dr. Johnna Dixon GRAM POS BACILLI Normal [facility] Comment on above: Performed By: #### S PUTGS #### [facility] [address] [address] [address] Johnna Dixon GRAM POSITIVE COCCI FEW Normal [facility] Comment on above: Performed By: #### S PUTGS #### [facility] [address] [address] [address] Johnna Dixon WBC (Bld) [#/Vol] 10*3/uL Normal [facility] Comment on above: Performed By: #### S PUTGS #### [facility] [address] [address] [address] Johnna Dixon SYMPTOMATIC COVID-19 ANTIGEN on 10-05-2022 EUA Statement SEE BELOW Normal [facility] Comment on above: Result Comment: [...] sooner. Performed By: #### C VDAGS #### [facility] [address] [place] [address] Dr. Johnna Dixon SARS-CoV-2 (COVID-19) RNA REX+probe Ql (Unsp spec) Negative Normal NEGATIVE [facility] Comment on above: Performed By: #### C VDAGS #### [facility] [address] [place] [address] Dr. Johnna Dixon XR CHEST 1 Von [...] SOCORRO SERRANO Date: 2022-10-05 11:44 Normal [facility] US SINGLE QUAD RT UPPERon US [...] SOCORRO HUFFMAN Date: 2022-09-24 09:46 Normal [facility] AMYLASEon 09-21-2022 Amylase [Catalytic activity/Vol] 78 U/L Normal 25-115 [facility] Comment on above: Performed By: #### C VDTB #### [facility] [address] [place], [place] [address] Dr. Johnna Dixon CBC AUTO DIFFon 09-21-2022 BASO # 0.0 103/ul Normal 0.0-0.1 [facility] Comment on above: Performed By: #### C VDTBH #### [facility] [address] [place], [place] [address] Dr. Johnna Dixon Basophils/100 WBC (Bld) 0.5 % Normal 0.2-2.0 [facility] Comment on above: Performed By: #### C VDTBH #### [facility] [address] [place] [address] Dr. Johnna Dixon EO # 0.1 103/ul Normal 0.0-0.7 [facility] Comment on above: Performed By: #### C VDTBH #### [facility] [address] [place] [address] Dr. Johnna Dixon Eosinophils/100 WBC (Bld) 1.9 % Normal 0.9-7.0 [facility] Comment on above: Performed By: #### C VDTBH #### [facility] [address] [place] [address] Dr. Johnna Dixon Erythrocyte distribution width (RBC) [Ratio] 14.5 % Normal 11.0-15.0 [facility] Comment on above: Performed By: #### C VDTBH #### [facility] [address] [place] [address] Dr. Johnna Dixon Hematocrit (Bld) [Volume fraction] 39.1 % Critically low 42.0-54.0 [facility] Comment on above: Performed By: #### C VDTBH #### [facility] [address] [place] [address] Dr. Johnna Dixon Hemoglobin (Bld) [Mass/Vol] 12.8 g/dL Critically low 14.0-18.0 [facility] Comment on above: Performed By: #### C VDTBH #### [facility] [address] [place] [address] Dr. Johnna Dixon IG # 0.05 10e3/ul Critically high 0.00-0.03 [facility] Comment on above: Performed By: #### C VDTBH #### [facility] [address] [place] [address] Dr. Johnna Dixon IG % 0.7 % Critically high 0.0-0.5 [facility] Comment on above: Performed By: #### C VDTBH #### [facility] [address] [place] [address] Dr. Johnna Dixon LYMPH # 2.0 103/ul Normal 1.2-3.8 [facility] Comment on above: Performed By: #### C VDTBH #### [facility] [address] [place] [address] Dr. Johnna Dixon Lymphocytes/100 WBC (Bld) 27.4 % Normal 20.5-60.0 [facility] Comment on above: Performed By: #### C VDTBH #### [facility] [address] [place] [address] Dr. Johnna Dixon MANUAL DIFF REQ NO Normal [facility] Comment on above: Performed By: #### C VDTBH #### [facility] [address] [place] [address] Dr. Johnna Dixon MCH (RBC) [Entitic mass] 31.3 pg Normal 25.9-34.0 [facility] Comment on above: Performed By: #### C VDTBH #### [facility] [address] [place] [address] Dr. Johnna Dixon MCHC (RBC) [Mass/Vol] 32.7 g/dL Normal 29.9-35.2 [facility] Comment on above: Performed By: #### C VDTBH #### [facility] [address] [place] [address] Dr. Johnna Dixon MCV (RBC) [Entitic vol] 95.6 fL Critically high 80.0-94.0 [facility] Comment on above: Performed By: #### C VDTBH #### [facility] [address] [place] [address] Dr. Johnna Dixon MONO # 0.5 103/ul Normal 0.3-0.8 [facility] Comment on above: Performed By: #### C VDTBH #### [facility] [address] [place] [address] Dr. Johnna Dixon Monocytes/100 WBC (Bld) 6.9 % Normal 1.7-12.0 [facility] Comment on above: Performed By: #### C VDTBH #### [facility] [address] [place] [address] Dr. Johnna Dixon NEUT # 4.7 103/ul Normal 1.4-6.5 [facility] Comment on above: Performed By: #### C VDTBH #### [facility] [address] [place] [address] Dr. Johnna Dixon Neutrophils/100 WBC (Bld) 62.6 % Normal 43.0-75.0 [facility] Comment on above: Performed By: #### C VDTBH #### [facility] [address] [place] [address] Dr. Johnna Dixon Platelet mean volume (Bld) [Entitic vol] 9.3 fL Critically low 9.5-13.5 [facility] Comment on above: Performed By: #### C VDTBH #### [facility] [address] [place] [address] Dr. Johnna Dixon PLT 235 103/ul Normal 150-450 [facility] Comment on above: Performed By: #### C VDTBH #### [facility] [address] [place] [address] Dr. Johnna Dixon RBC 4.09 106/ul Critically low 4.70-6.10 [facility] Comment on above: Performed By: #### C VDTBH #### [facility] [address] [place] [address] Dr. Johnna Dixon WBC 7.4 103/ul Normal 4.0-11.0 [facility] Comment on above: Performed By: #### C VDTBH #### [facility] [address] [place] [address] Dr. Johnna Dixon LIPASEon 09-21-2022 Lipase [Catalytic activity/Vol] 114.0 U/L Normal 73.0-393.0 [facility] Comment on above: Performed By: #### C VDAGS #### [facility] [address] [place] [address] Dr. Johnna Dixon LIVER PROFILEon 09-21-2022 Albumin [Mass/Vol] 3.9 g/dL Normal 3.4-5.0 [facility] Comment on above: Performed By: #### C VDTBH #### [facility] [address] [address] [address] Johnna Dixon Albumin/Globulin [Mass ratio] 1.6 {ratio} Normal [facility] Comment on above: Performed By: #### C VDTBH #### [facility] [address] [address] [address] Johnna Dixon ALP [Catalytic activity/Vol] 59 U/L Normal 46-116 [facility] Comment on above: Performed By: #### C VDTBH #### [facility] [address] [address] [address] Johnna Dixon ALT [Catalytic activity/Vol] 23 U/L Normal 16-63 [facility] Comment on above: Performed By: #### C VDTBH #### [facility] [address] [address] [address] Johnna Dixon AST [Catalytic activity/Vol] 8 U/L Critically low 15-37 [facility] Comment on above: Performed By: #### C VDTBH #### [facility] [address] [place] [address] Dr. Johnna Dixon BILI, CONJUGATED 0.1 mg/dL Normal 0.0-0.2 [facility] Comment on above: Performed By: #### C VDTBH #### [facility] [address] [place] [address] Dr. Johnna Dixon Bilirubin [Mass/Vol] 0.3 mg/dL Normal 0.2-1.0 [facility] Comment on above: Performed By: #### C VDTBH #### [facility] [address] [address] [address] Johnna Dixon Globulin (S) [Mass/Vol] 2.5 g/dL Normal [facility] Comment on above: Performed By: #### C VDTBH #### [facility] [address] [address] [address] Johnna Dixon Protein [Mass/Vol] 6.4 g/dL Normal 6.4-8.2 [facility] Comment on above: Performed By: #### C VDTBH #### [facility] [address] [address] [address] Johnna Dixon PROF CHEM 8 (BAS METB)on Anion gap [Moles/Vol] 13.4 mmol/L Normal [facility] Comment on above: Performed By: #### C VDTBH #### [facility] [address] [place] [address] Dr. Johnna Dixon Calcium [Mass/Vol] 8.9 mg/dL Normal 8.5-10.1 [facility] Comment on above: Performed By: #### C VDTBH #### [facility] [address] [place] [address] Dr. Johnna Dixon Chloride [Moles/Vol] 106 mmol/L Normal 98-107 [facility] Comment on above: Performed By: #### C VDTBH #### [facility] [address] [place] [address] Dr. Johnna Dixon CO2 [Moles/Vol] 25.6 mmol/L Normal 21.0-32.0 [facility] Comment on above: Performed By: #### C VDTBH #### [facility] [address] [place] [address] Dr. Johnna Dixon Creatinine [Mass/Vol] 1.21 mg/dL Normal 0.70-1.30 [facility] Comment on above: Performed By: #### C VDTBH #### [facility] [address] [place] [address] Dr. Johnna Dixon EGFR-AF GAMBIAN >60 Normal >=60 [facility] Comment on above: Performed By: #### C VDTBH #### [facility] [address] [place] [address] Dr. Johnna Dixon EGFR-NON AF GAMBIAN 59 mL/min/1.73m2 Critically low >=60 [facility] Comment on above: Performed By: #### C VDTBH #### [facility] [address] [place] [address] Dr. Johnna Dixon Glucose [Mass/Vol] 115 mg/dL Critically high 74-106 [facility] Comment on above: Performed By: #### C VDTBH #### [facility] [address] [address] [address] Johnna Dixon Potassium [Moles/Vol] 4.0 mmol/L Normal 3.5-5.1 [facility] Comment on above: Performed By: #### C VDTBH #### [facility] [address] [address] [address] Johnna Dixon Sodium [Moles/Vol] 141 mmol/L Normal 136-145 [facility] Comment on above: Performed By: #### C VDTBH #### [facility] [address] [address] [address] Johnna Dixon Urea nitrogen [Mass/Vol] 19.0 mg/dL Critically high 7.0-18.0 [facility] Comment on above: Performed By: #### C VDTBH #### [facility] [address] [place] [address] Dr. Johnna Dixon Urea nitrogen/Creatinine [Mass ratio] 15.7 mg/mg Normal [facility] Comment on above: Performed By: #### C VDTBH #### [facility] [address] [address] [address] Johnna Dixon CREATININEon 08-04-2022 Creatinine [Mass/Vol] 1.31 mg/dL Critically high 0.70-1.30 [facility] Comment on above: Performed By: #### C JANIS #### [facility] [address] [place] [address] Dr. Johnna Dixon EGFR-AF GAMBIAN >60 Normal >=60 [facility] Comment on above: Performed By: #### C JANIS #### [facility] [address] [place] [address] Dr. Johnna Dixon EGFR-NON AF GAMBIAN 54 mL/min/1.73m2 Critically low >=60 [facility] Comment on above: Performed By: #### C JANIS #### [facility] [address] [place] [address] Dr. Johnna Dixon CTA NECK WO W [...] ALLI CORTES Date: 2022-08-04 14:[address] [facility] US CAROTID ART BILon 023 US [...] ALLI CORTES Date: 2022-07-28 12:00 Normal [facility] XR KNEE RT 4V or >on [...] DEBORAH ZARAGOZA Date: 2022-06-30 17:38 Normal [facility] XR RIBS RT PA Fab 2 [...] SOCORRO SERRANO Date: 2022-05-25 14:51 Normal [facility] XR RIBS RT PA Fab 2 [...] atelectasis and small pleural effusion Normal [facility] CT CHEST WO CONon 04-18-2022 CT [...] SOCORRO BANSAL Date: 2022-04-18 16:17 Normal [facility] CULTURE URINEon 03-12-2022 CULTURE URINE Culture Observations : NO GROWTH. Normal [facility] Comment on above: Performed By: #### S PUT #### [facility] [address] [address] [address] Johnna Dixon COVID-19 Positive/NegativeOr dered By: Lionel Whitney on 02-13-2022 SARS-CoV-2 (COVID-19) N gene REX+probe Ql (Resp) Negative Negative [facility] Comment on above: Testing for SARS-CoV -2 by RT-PCR This test was developed and its performance characteristics determined by [employer] ([employer]) and validated at the [facility]. This test has not been [...] aPTT Coag (PPP) [Time] 34.8 s 25.1-36.5 [facility] Basophils Auto (Bld) [#/Vol] Ordered By: Lionel Whitney on 02-06-2022 Basophils (Bld) [#/Vol] 0.0 10*3/uL 0.0-0.2 [facility] Basophils/100 WBC Auto (Bld) Ordered By: Lionel Whitney on 02-06-2022 Basophils/100 WBC (Bld) 0.8 % . [facility] Blood hemoglobin measurement (mass/volume)Ordered By: Lionel Whitney on 02-06-2022 Hemoglobin (Bld) [Mass/Vol] 13.2 g/dL 13.0-17.0 [facility] Blood leukocytes automated c ount (number/volume)Ordered By: Lionel Whitney on 02-06-2022 WBC (Bld) [#/Vol] 5.7 10*3/uL 4.5-11.0 [facility] Creatinine and Glomerular fi ltration rate.predicted panel (S/P/Bld)Ordered By: Lionel Whitney on 02-06-2022 Creatinine [Mass/Vol] 1.21 mg/dL 0.64-1.27 [facility] Eosinophils Auto (Bld) [#/Vo l]Ordered By: Lionel Whitney on 02-06-2022 Eosinophils (Bld) [#/Vol] 0.1 10*3/uL 0.0-0.45 [facility] Eosinophils/100 WBC Auto (Bl d)Ordered By: Lionel Whitney on 02-06-2022 Eosinophils/100 WBC (Bld) 1.7 % . [facility] Erythrocyte distribution wid th Auto (RBC) [Ratio]Ordered By: Lionel Whitney on 02-06-2022 Erythrocyte distribution width (RBC) [Ratio] 14.2 % 12.0-14.8 [facility] Estimated glomerular filtrat ion rate (GFR) non- AmericanOrdered By: Lionel Whitney on 02-06-2022 GFR/1.73 sq M.predicted among non-blacks MDRD (S/P/Bld) [Vol rate/Area] 59 mL/Min [facility] Hematocrit Auto (Bld) [Volum e fraction]Ordered By: Lionel Whitney on 02-06-2022 Hematocrit (Bld) [Volume fraction] 40.8 % 38.8-50.0 [facility] - CoagulationOrde red By: Lionel Whitney on 02-06-2022 PT Coag (PPP) [Time] 11.0 s 9.0-12.9 [facility] - Hematology and Cell countsOrdered By: Lionel Whitney on 02-06-2022 Nucleated RBC/100 WBC (Bld) [Ratio] 0.1 % 0-0.5 [facility] Lymphocytes Auto (Bld) [#/Vo l]Ordered By: Lionel Whitney on 02-06-2022 Lymphocytes (Bld) [#/Vol] 1.6 10*3/uL 1.00-4.8 [facility] Lymphocytes/100 WBC Auto (Bl d)Ordered By: Lionel Whitney on 02-06-2022 Lymphocytes/100 WBC (Bld) 27.4 % . [facility] MCH Auto (RBC) [Entitic mass ]Ordered By: Lionel Whitney on 02-06-2022 MCH (RBC) [Entitic mass] 29.7 pg 27.5-35.2 [facility] MCHC Auto (RBC) [Mass/Vol]Or dered By: Lionel Whitney on 02-06-2022 MCHC (RBC) [Mass/Vol] 32.4 g/dL 32.5-35.6 [facility] MCV Auto (RBC) [Entitic vol] Ordered By: Lionel Whitney on 02-06-2022 MCV (RBC) [Entitic vol] 91.6 fL 83.5-101 [facility] Monocytes Auto (Bld) [#/Vol] Ordered By: Lionel Whitney on 02-06-2022 Monocytes (Bld) [#/Vol] 0.5 10*3/uL 0.0-0.8 [facility] Monocytes/100 WBC Auto (Bld) Ordered By: Lionel Whitney on 02-06-2022 Monocytes/100 WBC (Bld) 8.7 % . [facility] Neutrophils Auto (Bld) [#/Vo l]Ordered By: Lionel Whitney on 02-06-2022 Neutrophils (Bld) [#/Vol] 3.5 10*3/uL 1.8-7.7 [facility] Neutrophils/100 WBC Auto (Bl d)Ordered By: Lionel Whitney on 02-06-2022 Neutrophils/100 WBC (Bld) 61.4 % . [facility] No Panel InformationOrdered By: Lionel Whitney on 02-06-2022 Estimated GFR () > 60 mL/Min [facility] Comment on above: GFR estimated refere nce range: According to KDOQI guidelines, <60 ml/min/1.73m2 is sufficient to diagnose a patient with chronic kidney disease. Pharmacy Creatinine Clearance (Chem N/A [facility] Platelet mean volume Auto (B ld) [Entitic vol]Ordered By: Lionel Whitney on 02-06-2022 Platelet mean volume (Bld) [Entitic vol] 8.4 fL 6.6-10.1 [facility] Platelet poor plasma interna tional normalized ratio (INR) by coagulation assay (relatOrdered By: Lionel Whitney on 02-06-2022 INR Coag (PPP) [Relative time] 1.0 {INR} [facility] Comment on above: INR Therapeutic [...] 02-06-2022 Platelets (Bld) [#/Vol] 248 10*3/uL 150-450 [facility] RBC Auto (Bld) [#/Vol]Ordere d By: Lionel Whitney on 02-06-2022 RBC (Bld) [#/Vol] 4.45 10*6/uL 3.90-5.60 [facility] Serum or plasma calcium eliezer urement (mass/volume)Ordered By: Lionel Whitney on 02-06-2022 Calcium [Mass/Vol] 9.7 mg/dL 8.2-10.2 [facility] Serum or plasma chloride sammy surement (moles/volume)Ordered By: Lionel Whitney on 02-06-2022 Chloride [Moles/Vol] 99 mmol/L 95-114 [facility] Serum or plasma glucose eliezer urement (mass/volume)Ordered By: Lionel Whitney on 02-06-2022 Glucose [Mass/Vol] 99 mg/dL 70-100 [facility] Comment on above: ADA recommended refe rence range Random Glucose Reference Range is dependent on time and content of last meal. Glucose of more than 200 mg/dL in a nonstressed, ambulatory subject supports the diagnosis of Diabetes Mellitus. Serum or plasma potassium me asurement (moles/volume)Ordered By: Lionel Whitney on 02-06-2022 Potassium [Moles/Vol] 4.4 mmol/L 3.5-5.1 [facility] Serum or plasma sodium measu rement (moles/volume)Ordered By: Lionel Whitney on 02-06-2022 Sodium [Moles/Vol] 135 mmol/L 136-146 [facility] Serum or plasma total carbon dioxide measurement (moles/volume)Ordered By: Lionel Whitney on 02-06-2022 CO2 [Moles/Vol] 26.2 mmol/L 22.0-30.0 [facility] Serum or plasma urea nitroge n measurement (mass/volume)Ordered By: Lionel Whitney on 02-06-2022 Urea nitrogen [Mass/Vol] 20 mg/dL 9-23 [facility] COVID-19 Positive/NegativeOr dered By: Lionel Whitney on 10-27-2021 SARS-CoV-2 (COVID-19) N gene REX+probe Ql (Resp) Negative Negative [facility] Comment on above: Testing for SARS-CoV -2 by RT-PCR This test was developed and its performance characteristics determined by [employer] ([employer]) and validated at the [facility]. This test has not been [...] aPTT Coag (PPP) [Time] 36.2 s 25.1-36.5 [facility] Basophils Auto (Bld) [#/Vol] Ordered By: Lionel Whitney on 10-17-2021 Basophils (Bld) [#/Vol] 0.0 10*3/uL 0.0-0.2 [facility] Basophils/100 WBC Auto (Bld) Ordered By: Lionel Whitney on 10-17-2021 Basophils/100 WBC (Bld) 0.6 % [facility] Blood hemoglobin measurement (mass/volume)Ordered By: Lionel Whitney on 10-17-2021 Hemoglobin (Bld) [Mass/Vol] 13.6 g/dL 13.0-17.0 [facility] Blood leukocytes automated c ount (number/volume)Ordered By: Lionel Whitney on 10-17-2021 WBC (Bld) [#/Vol] 5.9 10*3/uL 4.5-11.0 [facility] Creatinine and Glomerular fi ltration rate.predicted panel (S/P/Bld)Ordered By: Lionel Whitney on 10-17-2021 Creatinine [Mass/Vol] 0.96 mg/dL 0.64-1.27 [facility] Eosinophils Auto (Bld) [#/Vo l]Ordered By: Lionel Whitney on 10-17-2021 Eosinophils (Bld) [#/Vol] 0.1 10*3/uL 0.0-0.45 [facility] Eosinophils/100 WBC Auto (Bl d)Ordered By: Lionel Whitney on 10-17-2021 Eosinophils/100 WBC (Bld) 2.0 % [facility] Erythrocyte distribution wid th Auto (RBC) [Ratio]Ordered By: Lionel Whitney on 10-17-2021 Erythrocyte distribution width (RBC) [Ratio] 14.5 % 12.0-14.8 [facility] Estimated glomerular filtrat ion rate (GFR) non- AmericanOrdered By: Lionel Whitney on 10-17-2021 GFR/1.73 sq M.predicted among non-blacks MDRD (S/P/Bld) [Vol rate/Area] > 60 mL/Min [facility] Hematocrit Auto (Bld) [Volum e fraction]Ordered By: Lionel Whitney on 10-17-2021 Hematocrit (Bld) [Volume fraction] 41.5 % 38.8-50.0 [facility] - CoagulationOrde red By: Lionel Whitney on 10-17-2021 PT Coag (PPP) [Time] 11.0 s 9.0-12.9 [facility] - Hematology and Cell countsOrdered By: Lionel Whitney on 10-17-2021 Nucleated RBC/100 WBC (Bld) [Ratio] 0.0 % 0-0.5 [facility] Lymphocytes Auto (Bld) [#/Vo l]Ordered By: Lionel Whitney on 10-17-2021 Lymphocytes (Bld) [#/Vol] 1.6 10*3/uL 1.00-4.8 [facility] Lymphocytes/100 WBC Auto (Bl d)Ordered By: Lionel Whitney on 10-17-2021 Lymphocytes/100 WBC (Bld) 26.8 % [facility] MCH Auto (RBC) [Entitic mass ]Ordered By: Lionel Whitney on 10-17-2021 MCH (RBC) [Entitic mass] 29.3 pg 27.5-35.2 [facility] MCHC Auto (RBC) [Mass/Vol]Or dered By: Lionel Whitney on 10-17-2021 MCHC (RBC) [Mass/Vol] 32.7 g/dL 32.5-35.6 [facility] MCV Auto (RBC) [Entitic vol] Ordered By: Lionel Whitney on 10-17-2021 MCV (RBC) [Entitic vol] 89.8 fL 83.5-101 [facility] Monocytes Auto (Bld) [#/Vol] Ordered By: Lionel Whitney on 10-17-2021 Monocytes (Bld) [#/Vol] 0.6 10*3/uL 0.0-0.8 [facility] Monocytes/100 WBC Auto (Bld) Ordered By: Lionel Whitney on 10-17-2021 Monocytes/100 WBC (Bld) 10.6 % [facility] Neutrophils Auto (Bld) [#/Vo l]Ordered By: Lionel Whitney on 10-17-2021 Neutrophils (Bld) [#/Vol] 3.5 10*3/uL 1.8-7.7 [facility] Neutrophils/100 WBC Auto (Bl d)Ordered By: Lionel Whitney on 10-17-2021 Neutrophils/100 WBC (Bld) 60.0 % [facility] No Panel InformationOrdered By: Lionel Whitney on 10-17-2021 Estimated GFR () > 60 mL/Min [facility] Comment on above: GFR estimated refere nce range: According to KDOQI guidelines, <60 ml/min/1.73m2 is sufficient to diagnose a patient with chronic kidney disease. Pharmacy Creatinine Clearance (Chem N/A [facility] Platelet mean volume Auto (B ld) [Entitic vol]Ordered By: Lionel Whitney on 10-17-2021 Platelet mean volume (Bld) [Entitic vol] 8.3 fL 6.6-10.1 [facility] Platelet poor plasma interna tional normalized ratio (INR) by coagulation assay (relatOrdered By: Lionel Whitney on 10-17-2021 INR Coag (PPP) [Relative time] 1.0 {INR} [facility] Comment on above: INR Therapeutic [...] 10-17-2021 Platelets (Bld) [#/Vol] 249 10*3/uL 150-450 [facility] RBC Auto (Bld) [#/Vol]Ordere d By: Lionel Whitney on 10-17-2021 RBC (Bld) [#/Vol] 4.62 10*6/uL 3.90-5.60 [facility] Serum or plasma calcium eliezer urement (mass/volume)Ordered By: Lionel Whitney on 10-17-2021 Calcium [Mass/Vol] 9.7 mg/dL 8.2-10.2 [facility] Serum or plasma chloride sammy surement (moles/volume)Ordered By: Lionel Whitney on 10-17-2021 Chloride [Moles/Vol] 101 mmol/L 95-114 [facility] Serum or plasma glucose eliezer urement (mass/volume)Ordered By: Lionel Whitney on 10-17-2021 Glucose [Mass/Vol] 87 mg/dL 70-100 [facility] Comment on above: ADA recommended refe rence range Random Glucose Reference Range is dependent on time and content of last meal. Glucose of more than 200 mg/dL in a nonstressed, ambulatory subject supports the diagnosis of Diabetes Mellitus. Serum or plasma potassium me asurement (moles/volume)Ordered By: Lionel Whitney on 10-17-2021 Potassium [Moles/Vol] 4.4 mmol/L 3.5-5.1 [facility] Serum or plasma sodium measu rement (moles/volume)Ordered By: Lionel Whitney on 10-17-2021 Sodium [Moles/Vol] 136 mmol/L 136-146 [facility] Serum or plasma total carbon dioxide measurement (moles/volume)Ordered By: Lionel Whitney on 10-17-2021 CO2 [Moles/Vol] 25.6 mmol/L 22.0-30.0 [facility] Serum or plasma urea nitroge n measurement (mass/volume)Ordered By: Lionel Whitney on 10-17-2021 Urea nitrogen [Mass/Vol] 18 mg/dL 9- [facility] Vital Signs Date Time Vital Sign Value Performing Clinician Facility 05-08-2024 11:49-0500 Diastolic blood pressure 90 mm[Hg] Cady Espinosa MD Work Phone: [facility] 05-08-2024 11:49-0500 Systolic blood pressure 180 mm[Hg] Cady Espinosa MD Work Phone: [facility] 05-08-2024 11:28-0500 Heart rate 67 /min Cady Espinosa MD Work Phone: [facility] 05-08-2024 11:27-0500 Body height 182.9 cm Cady Espinosa MD Work Phone: [facility] 05-08-2024 11:27-0500 Body mass index (BMI) [Ratio] 25.96 kg/m2 Cady Espinosa MD Work Phone: [facility] 05-08-2024 11:27-0500 Body weight 86.82 kg Cady Espinosa MD Work Phone: [facility] 03-28-2024 14:58-0400 Body height 182.88 cm [facility] 03-28-2024 14:58-0400 Body mass index (BMI) [Ratio] 24.7 kg/m2 [facility] 03-28-2024 14:58-0400 Body weight 83 kg [facility] 10-11-2023 15:27-0400 Body height 182.88 cm MD Yolande Monterroso Work Phone: [facility] 10-11-2023 15:27-0400 Body mass index (BMI) [Ratio] 25 kg/m2 MD Yolande Monterroso Work Phone: [facility] 10-11-2023 15:27-0400 Body temperature 97.2 [degF] MD Yolande Monterroso Work Phone: [facility] 10-11-2023 15:27-0400 Body weight 83.91 kg MD Yolande Monterroso Work Phone: [facility] 10-11-2023 15:27-0400 Diastolic blood pressure 88 mm[Hg] MD Yolande Monterroso Work Phone: [facility] 10-11-2023 15:27-0400 Heart rate 79 /min MD Yolande Monterroso Work Phone: [facility] 10-11-2023 15:27-0400 Systolic blood pressure 146 mm[Hg] MD Yolande Monterroso Work Phone: [facility] 10-04-2023 10:35-0400 Blood Pressure Location Lionel WHITNEY [facility] 10-04-2023 10:35-0400 Diastolic blood pressure 88 mm[Hg] Lionel WHITNEY [facility] 10-04-2023 10:35-0400 Heart rate 72 /min Lionel WHITNEY [facility] 10-04-2023 10:35-0400 Respiratory rate 16 /min Lionel WHITNEY [facility] 10-04-2023 10:35-0400 Systolic blood pressure 136 mm[Hg] Lionel WHITNEY [facility] 08-12-2023 11:10-0500 Body height 182.88 cm MD Yolande Monterroso Work Phone: [facility] 08-12-2023 11:10-0500 Body mass index (BMI) [Ratio] 24.3 kg/m2 MD Yolande Monterroso Work Phone: [facility] 08-12-2023 11:10-0500 Body weight 81.19 kg MD Yolande Monterroso Work Phone: [facility] 02-10-2023 14:16-0400 Blood Pressure Location [facility] [place] 02-10-2023 14:16-0400 Diastolic blood pressure 80 mm[Hg] [employer] [facility] [place] 02-10-2023 14:16-0400 Heart rate 70 /min [employer] [facility] [place] 02-10-2023 14:16-0400 Respiratory rate 16 /min [employer] [facility] [place] 02-10-2023 14:16-0400 Systolic blood pressure 124 mm[Hg] [employer] [facility] [place] 12-03-2022 10:20-0400 Body height 182.88 cm Zoran Chavez Other [employer] Other 12-03-2022 10:20-0400 Body mass index (BMI) [Ratio] 25.49 kg/m2 Zoran Chavez Other [employer] Other 12-03-2022 10:20-0400 Body weight 85.28 kg Zoran Chavez Other [employer] Other 10-22-2022 10:20-0400 Body height 182.88 cm Zoran Chavez Other [employer] Other 10-22-2022 10:20-0400 Body mass index (BMI) [Ratio] 25.63 kg/m2 Zoran Chaevz Other [employer] Other 10-22-2022 10:20-0400 Body weight 85.73 kg Zoran Chavez Other [employer] Other 10-22-2022 10:20-0400 Diastolic blood pressure 80 mm[Hg] Zoran Chavez Other [employer] [facility] [employer] Other 10-22-2022 10:20-0400 Systolic blood pressure 110 mm[Hg] Zoran Chavez Other [facility] [employer] Other 02-24-2022 10:43-0400 Blood Pressure Location Lionel WHITNEY [facility] 02-24-2022 10:43-0400 Diastolic blood pressure 80 mm[Hg] Lionel WHITNEY [facility] 02-24-2022 10:43-0400 Heart rate 65 /min Lionel WHITNEY [facility] 02-24-2022 10:43-0400 Respiratory rate 16 /min Lionel WHITNEY [facility] 02-24-2022 10:43-0400 Systolic blood pressure 140 mm[Hg] Lionel WHITNEY [facility] 02-17-2022 15:15-0400 Diastolic blood pressure 83 mm[Hg] MD Yolande Monterroso Work Phone: [facility] 02-17-2022 15:15-0400 Heart rate 58 /min MD Yolande Monterroso Work Phone: [facility] 02-17-2022 15:15-0400 Respiratory rate 16 /min MD Yolande Monterroso Work Phone: [facility] 02-17-2022 15:15-0400 SaO2% (BldA) [Mass fraction] 95 % MD Yolande Monterroso Work Phone: [facility] 02-17-2022 15:15-0400 Systolic blood pressure 166 mm[Hg] MD Yolande Monterroso Work Phone: [facility] 02-17-2022 14:30-0400 Body height 182.88 cm MD Yolande Monterroso Work Phone: [facility] 02-17-2022 14:30-0400 Body mass index (BMI) [Ratio] 26.2 kg/m2 MD Yolande Monterroso Work Phone: [facility] 02-17-2022 14:30-0400 Body weight 87.7 kg MD Yolande Monterroso Work Phone: [facility] 02-17-2022 14:17-0400 Body temperature 97.6 [degF] MD Yolande Monterroso Work Phone: [facility] 02-17-2022 13:52-0400 Inhaled oxygen flow rate 10 L/min MD Yolande Monterroso Work Phone: [facility] 10-17-2021 11:42-0400 Body height 180.34 cm MD Yolande Monterroso Work Phone: [facility] 10-17-2021 11:42-0400 Body mass index (BMI) [Ratio] 27 kg/m2 MD Yolande Monterroso Work Phone: [facility] 10-17-2021 11:42-0400 Body temperature 98.4 [degF] MD Yolande Monterroso Work Phone: [facility] 10-17-2021 11:42-0400 Body weight 88 kg MD Yolande Monterroso Work Phone: [facility] 10-17-2021 11:42-0400 Diastolic blood pressure 90 mm[Hg] MD Yolande Monterroso Work Phone: [facility] 10-17-2021 11:42-0400 Heart rate 64 /min MD Yolande Monterroso Work Phone: [facility] 10-17-2021 11:42-0400 SaO2% (BldA) [Mass fraction] 100 % MD Yolande Monterroso Work Phone: [facility] 10-17-2021 11:42-0400 Systolic blood pressure 172 mm[Hg] MD Yolande Monterroso Work Phone: [facility] Encounters Encounter Date Encounter Type Care Provider Facility Start: 10-09-2024 ambulatory Lionel Aubrey DEVONTE Facili ty:[facility] Start: 07-12-2024 ambulatory Lionel WHITNEY Facili ty:[facility] Start: 07-06-2024 ambulatory Lionel Aubrey WHITNEY Facili ty:[id number] Start: 05-29-2024 End: 05-29-2024 ambulatory Tamiko Landa MD Facility: [facility] Start: 05-22-2024 End: 05-22-2024 Lab Drop off Lionel R WHITNEY [facility] Start: 05-22-2024 End: 05-22-2024 ambulatory Lioneljameel WHITNEY Facility:[facility] Start: 05-22-2024 End: 05-22-2024 Patient encounter procedure Lionel R DEVONTE [facility] Start: 05-09-2024 End: 05-09-2024 ambulatory Lioneljameel WHITNEY Facility:[facility] Start: 05-09-2024 End: 05-09-2024 Patient encounter procedure Lionel R WHITNEY [facility] Start: 05-08-2024 End: 05-08-2024 Office consultation new/estab patient 60 min Cady Espinosa MD Work Phone: [facility] Comment on above: Unequal blood pressu re in upper extremities; Uncontrolled hypertension; Shortness of breath; Mixed hyperlipidemia; History of prostate cancer; Hx of bladder cancer; History of fractured rib; Former smoker; BMI 25.0-25.9,adult; Medication course changed Start: 05-08-2024 End: 05-08-2024 ambulatory [facility] Start: 04-10-2024 End: 04-10-2024 ambulatory Tamiko Landa MD Facility:[facility] Start: 03-28-2024 End: 03-28-2024 ambulatory [facility] Work Phone: Start: 03-28-2024 End: 03-28-2024 Patient encounter procedure [facility] Neurosurgery Work Phone: Start: 03-27-2024 End: 03-27-2024 ambulatory Tamiko Landa MD Facility:[facility] Start: 10-26-2023 End: 10-26-2023 ambulatory Lionel WHITNEY Facility:[facility] Start: 10-26-2023 End: 10-26-2023 Patient encounter procedure Lionel WHITNEY [facility] Start: 10-11-2023 End: 10-11-2023 ambulatory MD Yolande Monterroso Work Phone: [facility] Work Phone: Start: 10-11-2023 End: 10-11-2023 Patient encounter procedure MD Yolande Monterroso Work Phone: [facility] Infectious Disease Work Phone: Start: 10-04-2023 End: 10-04-2023 ambulatory Lionel WHITNEY Facility:[facility] Start: 10-04-2023 End: 10-04-2023 Patient encounter procedure Lionel WHITNEY [facility] Start: 09-30-2023 End: 09-30-2023 ambulatory KELLY ORTIZ Not Available Start: 09-09-2023 End: 09-09-2023 ambulatory VASU GALEANO Not Available Start: 08-28-2023 End: 08-28-2023 ambulatory Yolande Monterroso Facility:[facility] Start: 08-28-2023 End: 08-28-2023 Patient encounter procedure MD Yolande Monterroso Work Phone: [facility] [place] Work Phone: Start: 08-12-2023 End: 08-12-2023 ambulatory Yolande Monterroso Facility:[facility] Start: 08-12-2023 End: 08-12-2023 ambulatory MD Yolande Monterroso Work Phone: [facility] Work Phone: Start: 08-12-2023 End: 08-12-2023 Patient encounter procedure MD Yolande Monterroso Work Phone: [facility] [place] Work Phone: Start: 08-12-2023 End: 08-12-2023 ambulatory MD Yolande Monterroso Work Phone: [facility] Work Phone: Start: 08-12-2023 End: 08-12-2023 Patient encounter procedure MD Yolande Monterroso Work Phone: [facility] Neurosurgery Work Phone: Start: 07-26-2023 End: 07-26-2023 ambulatory Tamiko Landa MD Facility:[facility] Start: 04-27-2023 End: 04-27-2023 Patient encounter procedure Lionel WHITNEY [facility] Start: 02-10-2023 End: 02-10-2023 Patient encounter procedure Qamar SMITH [facility] Start: 01-05-2023 End: 01-05-2023 Patient encounter procedure Lionel WHITNEY [facility] Start: 01-01-2023 End: 01-01-2023 ambulatory Yolande Monterroso Facility:[facility] Start: 01-01-2023 End: 01-01-2023 ambulatory MD Yolande Monterroso Work Phone: [facility] Work Phone: Start: 01-01-2023 End: 01-01-2023 Patient encounter procedure MD Yolande Monterroso Work Phone: [facility] [place] Work Phone: Start: 12-03-2022 End: 12-03-2022 ambulatory Zoran Chavez Other [employer] Other Start: 12-03-2022 Office outpatient vi sit 15 minutes Zoran Chavez [facility] Neurosurgery Start: 11-20-2022 ambulatory ANDRIUS GIEDRAITIS Faci lity:[facility] Start: 10-28-2022 End: 10-29-[address] NELLY HERRERA Facility:[facility] Start: 10-27-2022 End: 11-18-[address] ZORAN CHAVEZ Facility:[facility] Start: 10-23-2022 End: 10-24-[address] ZORAN CHAVEZ Facility:[facility] Start: 10-22-2022 End: 10-22-2022 ambulatory Zoran Chavez Other [place] [employer] Other Start: 10-22-2022 Office outpatient vi sit 15 minutes Zoran Chavez [facility] Neurosurgery Start: 10-05-2022 End: 10-06-[address] YOLANDE MONTERROSO . Facility:[facility] Start: 09-24-2022 End: 09-25-[address] YOLANDE MONTERROSO . Facility:[facility] Start: 09-21-2022 End: 09-22-[address] LIONEL WHITNEY . Facility:[facility] Start: 09-21-2022 End: 09-21-2022 Patient encounter procedure Lionel WHITNEY [facility] Start: 08-19-2022 End: 08-20-[address] LIONEL WHITNEY . Facility:[facility] Start: 08-17-2022 End: 08-17-2022 Patient encounter procedure Lionel WHITNEY [facility] Start: 08-04-2022 End: 08-05-[address] YOLANDE MONTERROSO . Facility:[facility] Start: 07-28-2022 End: 07-29-[address] YOLANDE MONTERROSO . Facility:[facility] Start: 07-23-2022 End: 07-23-[address] LIONEL WHITNEY . Facility:[facility] Start: 07-20-2022 End: 07-20-2022 Patient encounter procedure [facility]ITNEY [facility] Start: 07-07-2022 End: 07-07-2022 Patient encounter procedure Lionel WHITNEY [facility] Start: 06-30-2022 End: 07-01-[address] YOLANDE MONTERROSO . Facility:[facility] Start: 06-04-2022 End: 06-04-[address] YOLANDE MONTERROSO . Facility:[facility] Start: 05-25-2022 End: 05-26-[address] YOLANDE MONTERROSO . Facility:[facility] Start: 05-18-2022 End: 05-18-2022 Patient encounter procedure Lionel WHITNEY [facility] Start: 04-27-2022 End: 04-28-[address] YOLANDE MONTERROSO . Facility:[facility] Start: 04-18-2022 End: 04-18-[address] FELICIA GALDAMEZ . Facility:[facility] Start: 04-15-2022 End: 04-15-2022 Patient encounter procedure Lionel WHITNEY [facility] Start: 03-26-2022 End: 03-26-[address] LIONEL WHITNEY . Facility:[facility] Start: 03-12-2022 End: 03-13-[address] YOLANDE MONTERROSO . Facility:[facility] Start: 03-09-2022 End: 03-09-2022 Patient encounter procedure Lionel WHITNEY [facility] Start: 02-27-2022 End: 02-27-2022 Lab Drop off Lionel WHITNEY [facility] Start: 02-27-2022 End: 02-27-2022 Patient encounter procedure Lionel WHITNEY [facility] Start: 02-24-2022 End: 02-24-2022 Patient encounter procedure Lionel WHITNEY [facility] Start: 02-17-2022 End: 02-17-2022 Admission to same day surgery center MD Yolande Monterroso Work Phone: [facility] [place] Start: 02-13-2022 End: 02-13-2022 Patient encounter procedure MD Yolande Monterroso Work Phone: [facility]Pre-Surgical Testing Start: 02-06-2022 End: 02-06-2022 Patient encounter procedure MD Yolande Monterroso Work Phone: [facility]Surgical [facility] Start: 11-11-2021 End: 11-11-2021 Patient encounter procedure Lionel WHITNEY [facility] Start: 11-05-2021 End: 11-05-2021 Patient encounter procedure Lionel WHITNEY [facility] Start: 10-29-2021 End: 10-29-2021 Admission to same day surgery center MD Yolande Monterroso Work Phone: [facility] [place] Start: 10-27-2021 End: 10-27-2021 Patient encounter procedure MD Yolande Monterroso Work Phone: [facility] Start: 10-17-2021 End: 10-17-2021 Patient encounter procedure MD Yolande Monterroso Work Phone: [facility] Procedures Date Procedure Procedure Detail Performing [...] above: Performed By: #### P SAD #### [facility] [address] [place] [address] Dr. Johnna Dixon Start: 02-17-2022 Transurethral resect [...] WHITNEY Comment on above: had recently at [facility] Start: 05-21-2014 Colonoscopy Qamar DELANO DOSS [...] DTaP/Tdap/Td Vaccines (3 - Td or Tdap) [facility] Start: 08-08-2024 End: 05-08-2025 Alanine aminotransferase [Enzymatic activity/volume] in Serum or Plasma by With P-5'-P Alanine Aminotransferase Lab Routine Mixed hyperlipidemia Expected: 08/08/2024, Expires: 05/08/2025 [facility] Work Phone: Comment on above: Expected: 08/08/2024, Expires: Start: 08-08-2024 End: 05-08-2025 Aspartate aminotransferase [Enzymatic activity/volume] in Serum or Plasma by With P-5'-P Aspartate Aminotransferase Lab Routine Mixed hyperlipidemia Expected: 08/08/2024, Expires: 05/08/2025 [facility] Work Phone: Comment on above: Expected: 08/08/2024, Expires: Start: 08-08-2024 End: 05-08-2025 Lipid 1996 panel - Serum or Plasma Lipid Panel Lab Routine Mixed hyperlipidemia Expected: 08/08/2024, Expires: 05/08/2025 [facility] Work Phone: Comment on above: Expected: 08/08/2024, Expires: Start: 07-17-2024 End: 07-17-2024 Patient encounter procedure 07/17/2024 10:45 AM EST Office Visit [facility] [address] [place] [address] Cady Espinosa MD [address] [facility] [address] [place] [address] [facility] Start: 06-08-2024 End: 06-08-2024 Patient encounter procedure 06/08/2024 10:45 AM EST Appointment [facility] [address] [address] [facility] Start: 05-15-2024 End: 05-08-2025 Basic metabolic 2000 panel - Serum or Plasma Basic Metabolic Panel Lab Routine Uncontrolled hypertension Expected: 05/15/2024 (Approximate), Expires: 05/08/2025 [facility] Work Phone: Comment on above: Expected: 05/15/2024 (Approximate), Expi res: 05/08/2025 Start: 05-08-2024 End: 05-08-2026 US Heart Transthoracic Transthoracic Echo Complete Echocardiography Routine Former smoker Shortness of breath Expected: 05/08/2024 (Approximate), Expires: 05/08/2026 [facility] Work Phone: Comment on above: Expected: 05/08/2024 (Approximate), Expi res: 05/08/2026 Start: 02-20-2024 COVID-19 Vaccine ( season) COVID-19 Vaccine ( season) [facility] Start: 02-20-2024 Influenza vaccination Influenza Vaccine (#1) [facility] Start: 08-12-2023 Patient referral [facility] Work Phone: Start: 08-12-2023 X-ray of cervical spine XR cervical spine w flex/ext [facility] Start: 08-12-2023 X-ray of lumbar spine, six views including bending views XR lumbar spine 6V w bending [facility] Start: 08-12-2023 XR Cervical spine Views W flexion and W extension [facility] Start: 08-12-2023 XR Lumbar spine Views [facility] Start: 02-17-2022 End: 02-17-2022 [facility] Work Phone: Start: 02-17-2022 Transurethral resection of bladder neoplasm OR Cysto/TURBT/Bladder Biopsy/Fulg (Not Applicable) [facility] Start: 02-17-2022 End: 02-17-2022 Admission to same day surgery center Departed Surgical Day Care [facility] [place] Start: 02-13-2022 End: 02-13-2022 Patient encounter procedure Departed Clinical [facility] Hep-Eul-Czkgjuty Testing Start: 2011 RSV High Risk: (Elderly (60+) or Population) (1 - Risk 60-74 years 1-dose series) RSV High Risk: (Elderly (60+) or Population) (1 - Risk 60-74 years 1-dose series) [facility] Start: 1969 Hepatitis C screening Hepatitis C Screening [facility] Start: 1950 Lipid panel Lipid Panel [facility] Start: 1950 Medicare Annual Wellness Visit Medicare Annual Wellness Visit (AWV) [facility] Start: 1950 Screening for malignant neoplasm of colon [facility] Microbial culture of sputum [facility] MR Cervical spine WO and W contrast IV [facility] Patient referral [facility] Work Phone: Immunizations Immunization Date Immunization Notes Care Provider Gary francisco 07-13-2023 zoster vaccine recombinant Lionel WHITNEY [facility] 03-23-2023 influenza virus vacc ine, unspecified formulation Lionel WHITNEY [facility] 03-23-2023 zoster vaccine recombinant Lionel WHITNEY [facility] 04-16-2022 SARS-CoV-2 (COVID-19 ) [id number] Qamar SMITH [facility] 03-27-2022 influenza virus vacc ine, unspecified formulation Qamar SMITH [facility] 05-06-2021 COVID-19 mRNA-1273 (Moderna) MD Yolande Monterroso Work Phone: [facility] 09-19-2020 COVID-19 mRNA-1273 (Moderna) MD Yolande Monterroso Work Phone: [facility] Comment on above: Result Comment: 2022: [id number] 08-22-2020 COVID-19 mRNA-1273 (Moderna) MD Yolande Monterroso Work Phone: [facility] Comment on above: Result Comment: 2022: [id number] 06-21-2020 SARS-CoV-2 (COVID-19 ) mRNA-1273 vaccine Lionel WHITNEY [facility] 05-23-2020 influenza virus vacc ine, unspecified formulation Qamar LUIS [facility] 04-03-2020 influenza virus vacc ine, unspecified formulation Qamar NILL [facility] 05-29-2019 influenza virus vacc ine, unspecified formulation [employer] [facility] 04-14-2019 influenza, unspecifi ed formulation Qamar ROBINSONL [facility] 09-26-2018 tetanus and diphther ia toxoids, adsorbed, preservative free, for adult use (2 Lf of tetanus toxoid and 2 Lf of diphtheria toxoid) Qamar BOWERSL [facility] 10-11-2017 pneumococcal polysaccharide vaccine, 23 valent Qamar BOWERSL [facility] 07-22-2016 pneumococcal conjuga te vaccine, 13 valent Qamar NILL [facility] 06-29-2013 tetanus toxoid, redu mirtha diphtheria toxoid, and acellular pertussis vaccine, adsorbed Qamar BOWERSDmitriy [facility] 03-10-2000 Td(adult) unspecifie d formulation Qamar LUIS [facility] Payers Date Payer Category Payer Self-pay [id number] 2022 Medicare (Managed Care) [employer] [id number] 2022 Unknown 1959 Medicare [id number] 1959 Unknown [id number] 2..840.1.044202.19 1951 Unknown [id number] 2.840.1.914587.3.579.2 .593 1951 Unknown [id number] 2.16.840.1.462673.3.579.2 .593 1951 Unknown [id number] 2.16.840.1.034629.3.579.2 .593 1951 Unknown [id number] 2.16.840.1.871256.3.579.2 .593 1951 Unknown [id number] 2.16.840.1.605006.3.579.2 .593 1951 Unknown [id number] 2.16.840.1.880011.3.579.2 .593 1951 Unknown [id number] 2.16.840.1.976708.3.579.2 .593 1951 Unknown [id number] 2.16.840.1.150905.3.579.2 .593 1951 Unknown [id number] 2.16.840.1.781414.3.579.2 .593 1951 Unknown [id number] 2.16.840.1.161972.3.579.2 .593 1951 Unknown [id number] 2.16.840.1.068375.3.579.2 .593 1951 Unknown [id number] 2.16.840.1.534112.3.579.2 .593 1951 Unknown [id number] 2.16.840.1.134799.3.579.2 .593 1951 Unknown [id number] 2.16.840.1.277823.3.579.2 .593 1951 Unknown [id number] 2.16.840.1.646164.3.579.2 .593 1951 Unknown [id number] 2.16.840.1.675844.3.579.2 .593 1951 Unknown [id number] 2.16.840.1.841108.3.579.2 .593 1951 Unknown [id number] 2.16.840.1.948061.3.579.2 .593 1951 Unknown [id number] 2.16.840.1.935462.3.579.2 .593 1951 Unknown [id number] 2.16.840.1.727050.3.579.2 .1259 1951 Unknown [id number] 2.16.840.1.473863.3.579.2 .1259 1951 Unknown [id number] 2.16.840.1.897209.3.579.2 .727 1951 Unknown [id number] 2.16.840.1.610956.3.579.2 .727 1951 Unknown [id number] 2.16.840.1.326408.3.579.2 .727 1951 Unknown [id number] 2.16.840.1.866172.3.579.2 .727 1951 Unknown [id number] 2.16.840.1.310031.3.579.2 .727 1951 Unknown [id number] 2.16.840.1.475412.3.579.2 .1244 1951 Unknown [id number] 2.16.840.1.293609.3.579.2 .727 1951 Unknown [id number] 2.16.840.1.524380.3.579.2 .727 1951 Unknown [id number] 2.16.840.1.168085.3.579.2 .196 1951 Unknown [id number] 2.16.840.1.574719.3.579.2 .196 1951 Unknown [id number] 2.16.840.1.560269.3.579.2 .196 1950 Unknown [id number] 2.16.840.1.973188.3.579.2 .196 Medicare Medicare [id number] Private Health Insurance [id number] [facility] [place] [id number] Unknown [id number] 2.16.840.1.421385.3.579.2 .531 Unknown [id number] 2.16.840.1.250960.3.579.2 .531 Unknown [id number] 2.16.840.1.626390.3.579.2 .531 Social History Date Type Detail Facility Start: 10-17-2021 End: 10-04-2023 Tobacco smoking status NHIS Ex-smoker (finding) [facility] Comment on above: pt quit smoking 10+ yrs ago Start: 1950 Sex Assigned At Male [facility] Start: 11-05-2021 Tobacco smoking status Never s moked tobacco (finding) [facility] Tobacco smoking status Never [facility] Comment on above: pt quit smoking 10+ yrs ago Start: 05-08-2024 Sex Assigned At Male [facility] End: 06-21-2003 History of tobacco use Current smoker [facility] Work Phone: End: 06-21-2003 History of tobacco use Cigarette Smoker [facility] Work Phone: Start: 05-08-2024 Tobacco use and exposure Smokeless tobacco non-user [facility] Work Phone: Start: 05-08-2024 Alcoholic beverage intake Current drinker of alcohol (finding) [facility] Work Phone: Start: 05-08-2024 History of Social function [facility] Work Phone: Start: 05-08-2024 [facility] Start: 1950 Sex assigned at Not on file [facility] Work Phone: Start: 04-28-2024 End: 05-08-2024 Exposure to SARS-CoV-2 (event) Not sure [facility] Medical Equipment Procedure Code Equipment Code Equipment Original Text Equipment Identifier Dates Transurethral resection of bladder tumor (TURBT) with cystoscopy Polymeric ureteral stent ()[id number] FDA Start: 10-29-2021 Decompression, spine, cervical, posterior approach Bone-screw internal spinal fixation system, non-sterile ()[id number] FDA Start: 04-18-2020 Decompression, spine, cervical, posterior approach Bone-screw internal spinal fixation system, non-sterile ()[id number] FDA Start: 04-18-2020 Decompression, spine, cervical, posterior approach Bone-screw internal spinal fixation system, non-sterile ()[id number] FDA Start: 04-18-2020 Decompression, spine, cervical, posterior approach Bone-screw internal spinal fixation system, non-sterile ()[id number] FDA Start: 04-18-2020 Decompression, spine, cervical, posterior approach Bone-screw internal spinal fixation system, non-sterile ()[id number] FDA Start: 04-18-2020 Goals Date Patient Goal Desired Activity /State Functional Status Date Assessment Result Facility 05-09-2024 Functional Status N/A [facility] 10-26-2023 Functional Status N/A [facility] 10-04-2023 Functional Status N/A [facility] 04-27-2023 Functional Status N/A [facility] 02-10-2023 Functional Status N/A [facility] 01-05-2023 Functional Status N/A [facility] 02-24-2022 Functional Status N/A [facility] Clinical Notes 11-04-2021 to 05-09-2024 Note Date & Type Note Facility 05-09-2024 Evaluation + Plan note Extrac malik from: Title:Urology Progress Note Author:DEVONTE NOBLE, Jose Alfredo Burgos Date:05/09/24 Impression and Plan Impression: #1. This gentleman seems to have a recurrence of his bladder cancer. 2. History of prostate cancer. Plan: #1. He will get scheduled for a cystoscopy and transurethral resection of bladder tumors under general endotracheal anesthesia. Future Appointments Appointment Date:07/12/2024 10:30:00 AM Scheduled Provider:Lionel WHITNEY MD Location:[facility] Appointment Type:URO Office Visit Appointment Date:10/09/2024 10:15:00 AM Scheduled Provider:Lionel WHITNEY MD Location:[facility] Appointment Type:URO Office Visit Diagnostic Tests Pending * [facility] Fish and Urine Cyto ([facility]) 05/09/24 [facility] 11-19-2024 Hospital Discharge instructions Patient Education 05/09/2024 [...] Up Care 04/13/2024 11:43:40 With:Lionel WHITNEY Address: [address] [place], [place] [address]- Business (1) When: Unknown Comments:Office will call to schedule follow up [facility] 11-19-2024 NoteProgress Note-Physician Patient: MARY DIAZ Age: 74 years Sex: Male : 1950 Associated Diagnoses: None Author: Lionel WHITNEY MD Subjective X this gentleman has a history of [...] All Problems HTN (hypertension) / SNOMED CT [id number] / Confirmed Acute gouty arthritis / SNOMED CT [id number] / Confirmed lots of inflammation per pt sometimes has to get steroids History of prostate cancer / SNOMED CT 5084620947 / Confirmed History of kidney stones / SNOMED CT 2906447066 / Confirmed Impotence / SNOMED CT 6147990014 / Confirmed Bladder cancer / SNOMED CT 4102470521 / Confirmed Spondylolisthesis of cervical region / SNOMED CT 115768952 / Confirmed Chronic obstructive pulmonary disease / SNOMED CT 10457757 / Confirmed GERD (gastroesophageal reflux disease) / SNOMED CT 269435776 / Confirmed BMI 23.0-23.9, adult / SNOMED CT 5051407639 / Confirmed Personal history of colonic polyps / SNOMED CT 6435226852 / Confirmed Chronic GERD / SNOMED CT 168192536 / Confirmed Change in bowel habits / SNOMED CT 401405131 / Confirmed Iron deficiency anemia / SNOMED CT 254766141 / Confirmed Personal history of bladder cancer / SNOMED CT 0348809262 / Confirmed Shoulder impingement syndrome / SNOMED CT 349451898 / Confirmed Ecchymosis / SNOMED CT 620258208 / Confirmed left leg from [place] to ankle- box with snowblower in it slipped off a cart and banged his leg. Foot pink and dry with immediate capillary refill, 4t pedal and poterior tibial pulses. Umbilical hernia / SNOMED CT [id number] / Confirmed Histories Past Medical History: Active HTN (hypertension) ([id number]) Acute gouty arthritis ([id number]) Comments: 08/22/2014 EST 16:07 CASS Coleman RN, Jannette lots of inflammation per pt sometimes has to get steroids Resolved Cancer of prostate ([id number]): Resolved. Comments: 08/22/2014 EST 16:09 CASS Coleman RN Jannette just had a surgery done radical prostectomy at [facility] Acid reflux ([id number]): Resolved. Family History: Hypertension Father Diabetes mellitus type 2 Father Depression Sister Procedure history: Cystoscopy ([id number]) on 04/27/2023 at 73 Years. TURBT - Transurethral resection of bladder tumor ([id number]) on 01/14/2023 at 72 Years. TURBT - Transurethral resection of bladder tumor ([id number]) on 02/17/2022 at 72 Years. TURBT - Transurethral resection of bladder tumor ([id number]) on 10/29/2021 at 71 Years. Cystourethroscopy with dilation of urethral stricture ([id number]) on 10/14/2021 at 71 Years. Repair of umbilical hernia ([id number]) on 06/22/2017 at 67 Years. Comments: 06/22/2017 14:35 Nedra Tavares RN Umbilical hernia repair with mesh ( assisted with robot) Arthroscopy of shoulder ([id number]) on 05/20/2017 at 67 Years. Comments: 05/20/2017 19:03 Zora Gay RN LEFT SHOULDER ARTHROSCOPIC, CHONDROPLASTY,DEBRIDEMENT OF PARTIAL ROTATOR CUFF TEAR, REMOVAL RETAINED SUTURE Radical prostatectomy ([id number]) in the month of 08/2014 at 64 Years. bilateral fifth partial metatarsal osteotomies and Silver Tailor's bunionectomies on 08/29/2014 at 64 Years. Colonoscopy ([id number]) in the month of 05/2014 at 64 Years. Complete repair of rotator cuff ([id number]) in 2010 at 61 Years. Comments: 08/22/2014 16:14 Jannette Del Rio RN right Shoulder reconstruction ([id number]) in 1998 at 49 Years. Comments: 08/22/2014 16:15 Jannette Del Rio RN left possibly a screw in there per pt Appendectomy ([id number]) in 1964 at 15 Years. Arthroplasty of the ankle ([id number]). Comments: 12/30/2018 14:30 Jayne Elkins 1990 Arthroscopy of knee ([id number]). Cervical vertebral fusion ([id number]). Social History Social & Psychosocial Habits Alcohol 10/04/2023 Risk Assessment: Low Risk 10/04/2023 Use: Current Substance Abuse 10/04/2023 Risk Assessment: Denies Substance Abuse Tobacco 10/04/2023 Risk Asse (more content not included)...[facility] Comment on above:Result Comment: Electronically Signed By: DEVONTE NOBLE, Lionel Gama.tacos\Date and Time Signed: 05/09/24 09:50 [id number] NotePatient Education Custom Cystoscopy ??? Voiding after [...] if you have a fever over [address] 05-08-2024 NoteNormal sinus rhythm 67 bpm left axis deviation incomplete right bundle branch block poor R wave progression. No comparison EKG.[id number] History of Present illness Narrative* Cady Espinosa MD - 05/08/2024 11:15 AM EST Referred by Dr. Qamar Monterroso for New Patient Visit (Isihsqpl-Axltqj-Guldtgjsipvj) History Of Present Illness: Mary Diaz is [...] (VOLTAREN) 75 mg, 2 times daily HYDROcodone-acetaminophen (Av[place]) 5-325 mg tablet 1 tablet, Daily PRN [...] further questions arise, Sincerely, Cady Espinosa MD [facility] Provider Attestation - Scribe documentation All medical record entries made by the Scribe were at my direction and personally dictated by me. Huan reviewed the chart and agree that the record accurately reflects my personal performance of the history, physical exam, discussion and plan. documented in this [facility] Work Phone: 1(968) 933-964011-18-2024 Instructions* Patient Instructions* Ella Cruz RN - [...] Provided instructions on exercise. documented in this [facility] Work Phone: 1(951) 629-824005-07-2024 Hospital Discharge instructions Patient Education 10/26/2023 11:58:55 [...] Up Care 09/29/2023 09:06:13 With:Lionel WHITNEY Address: [address] [place] [address]- Business (1) When: Unknown Comments:Office will call to schedule follow up [facility]05-07-2024 Note [id number] [facility] 10-26-2023 NoteCustom Cystoscopy ? Voiding after the [...] you have a fever over 100 degrees.Segundo [facility] 10-04-2023 Hospital Discharge instructions Patient Education 10/04/2023 [...] if anything looks unusual. Men with a wgzzic-rgsi-xrfyhk risk for skin cancer may want to see a franchise specialist (consultant internship) for an annual body check. What are the benefits of screening? Cancer screening is done to look for cancer in the very early stages, before it spreads and becomesharder to treat and before you would start to notice symptoms. Finding cancer early improves the chances of successful treatment. It may save your life. Where to find more information [place]: www.cancer.org Centers for Disease Control and Prevention: www.cdc.gov National Cancer [place]: www.cancer.gov Contact a health care provider if: [...] Document Reviewed: 05/03/2020 Elsevier Patient Education 2022 [employer]. Follow Up Care 10/01/2022 10:55:16 With:Lionel WHITNEY MD, [place] Address: [facility] [address] [place] [phone] When: Unknown Comments:1 yr w/ PSA [facility] 11-07-2023 Hospital Discharge instructions Patient Education 04/27/2023 [...] WHITNEY Address: [facility] [address] [place] [address]- Business (1) When: Unknown Comments:Office will call to schedule follow up [facility]07-18-2023 Hospital Discharge instructions Patient Education 01/05/2023 10:55:52 [...] With:Lionel WHITNEY Address: [facility] [address] [place] [address]- [facility] (1) When: Unknown Comments:Office will call to schedule follow up [facility]06-15-2023 Evaluation note* Encounter Date Diagnosis Assessment Notes [...] M46.1) Nov, Neurogenic claudication (ICD-10 - R29.818) [facility] Other 05-04-2023 Evaluation note* Encounter Date Diagnosis [...] spine October, Neurogenic claudication (ICD-10 - R29.818) [facility] Other 04-03-2023 Hospital Discharge instructions Patient Education [...] if anything looks unusual. Men with a kwmyri-dped-sgqout risk for skin cancer may want to see a franchise specialist (consultant internship) for an annual body check. Where to find more information National Cancer [place]: https://www.cancer.gov/about-cancer/screening Centers for Disease Control and Prevention: https://www.cdc.gov/cancer/dcpc/prevention/screening.htm [place]: https://www.cancer.org/latest-news/8-dafdsj-cdzxmjgqq-akxfo-vly-spi.html Contact a health care provider if: You [...] 03/04/2017 Document Revised: 02/24/2019 Document Reviewed: 03/04/2017 Healthy Labs Patient Education 2020 [employer]. Follow Up Care 09/19/2021 11:05:08 With:DEVONTE NOBLE, Lionel Burgos, URL Address: [facility] [address] , [place] [address]- When: Unknown [facility] Hospital Discharge instructions Patient Education 07/07/2022 [...] WHITNEY Address: [facility] [address] [place] [address]- Business (1) When: Unknown Comments:Office will call to schedule follow up [facility]09-06-2022 Hospital Discharge instructions Patient Education 02/24/2022 [...] if anything looks unusual. Men with a uupytz-yirr-qsnura risk for skin cancer may want to see a franchise specialist (consultant internship) for an annual body check. Where to find more information National Cancer [place]: https://www.cancer.gov/about-cancer/screening Centers for Disease Control and Prevention: https://www.cdc.gov/cancer/dcpc/prevention/screening.htm [place] [employer]: https://www.cancer.org/latest-news/8-tjggjx-jmbvlfmfs-ajmcl-lzh-qlr.html Contact a health care provider if: You [...] 03/04/2017 Document Revised: 02/24/2019 Document Reviewed: 03/04/2017 Elsevier Patient Education 2019 [employer] Follow Up Care 02/05/2022 13:48:40 With:DEVONTE NOBLE, Lionel Burgos, URL Address: [facility] [address] , [place] [phone] When: Unknown [facility] 05-24-2022 Hospital Discharge instructions Patient Education [...] Address: [facility] [address] [place] [address]- Business (1) When: Unknown Comments:Keep scheduled appointment [facility]05-17-2022 Hospital Discharge instructions Patient Education 11/04/2021 [...] who: Are older than age 65. Are -Tai[place]ese. Are obese. Have a family history of [...] cells. Follow these instructions at home: Take gjqf-quh-cfhnita and prescription medicines only as told by [...] 06/07/2006 Document Revised: 05/20/2018 Document Reviewed: 02/15/2017 [employer] Labs Patient Education 2020 [employer]. Follow Up Care 10/14/2021 11:26:04 With:Lionel WHITNEY MD, URL Address: [facility] [address], [place] [address]- When: Unknown [facility]! Evaluation + Plan note Future Appointments Appointment Date:09/21/2022 09:45:00 AM Scheduled Provider:Lionel WHITNEY MD Location:[facility] [place] Appointment Type:URO Office Visit [facility]! Evaluation + Plan note Future Appointments Appointment Date:03/09/2022 09:00:00 AM Scheduled Provider: Location:[facility] [place] Appointment Type:URO Nurse Visit Appointment Date:04/15/2022 09:00:00 AM Scheduled Provider: Location:[facility] [place] Appointment Type:URO Nurse Visit Appointment Date:09/21/2022 09:45:00 AM Scheduled Provider:Lionel WHITNEY MD Location:[facility] [place] Appointment Type:URO Office Visit [facility] Evaluation + Plan note Future Appointments Appointment Date:03/09/2022 09:00:00 AM Scheduled Provider: Location:[facility] [place] Appointment Type:URO Nurse Visit Appointment Date:04/15/2022 09:00:00 AM Scheduled Provider: Location:[facility] [place] Appointment Type:URO Nurse Visit Appointment Date:09/21/2022 09:45:00 AM Scheduled Provider:Lionel WHITNEY MD Location:[facility] [place] Appointment Type:URO Office Visit Diagnostic Tests Pending * [facility]rine [facility] App[facility]ments Appointment Date:04/15/2022 09:00:00 AM Scheduled Provider: Location:[facility] [place] Appointment Type:URO Nurse Visit Appointment Date:09/21/2022 09:45:00 AM Scheduled Provider:Lionel WHITNEY MD Location:[facility] [place] Appointment Type:URO Office Visit [facility] evaluation + Plan note Future Appointments Appointment Date:07/20/2022 10:00:00 AM Scheduled Provider: Location:[facility] Appointment Type:URO Nurse Visit Appointment Date:08/17/2022 10:00:00 AM Scheduled Provider: Location:[facility] Appointment Type:URO Nurse Visit Appointment Date:09/21/2022 09:45:00 AM Scheduled Provider:Lionel WHITNEY MD Location:[facility] Appointment Type:URO Office Visit Diagnostic Tests Pending * UroVysion FISH ([facility]) [facility]07[facility] App[facility]ments Appointment Date:08/17/2022 10:00:00 AM Scheduled Provider: Location:[facility] Appointment Type:URO Nurse Visit Appointment Date:09/21/2022 09:45:00 AM Scheduled Provider:Lionel WHITNEY MD Location:[facility] Appointment Type:URO Office Visit [facility] Evaluation + Plan note Future Appointments Appointment Date:09/22/2022 02:00:00 PM Scheduled Provider: Location:[facility] Appointment Type:Urology CALL PAT FT Appointment Date:09/29/2022 11:15:00 AM Scheduled Provider: Location:[facility] Appointment Type:Urology FT [facility] evaluation + Plan note Future Appointments Appointment Date:09/22/2022 02:00:00 PM Scheduled Provider: Location:[facility] Appointment Type:Urology CALL PAT FT Appointment Date:09/29/2022 11:15:00 AM Scheduled Provider: Location:[facility] Appointment Type:Urology FT Diagnostic Tests Pending * Urine Cytology ([facility]) 09/21/22 [facility] evaluation + Plan note Future Appointments Appointment Date:10/04/2023 10:15:00 AM Scheduled Provider:Lionel WHITNEY MD Location:[facility] Appointment Type:URO Office Visit Diagnostic Tests Pending * UroVysion Fish and Urine Cyto ([facility]) [facility]05[facility]23 [facility] App[facility]ments Appointment Date:10/04/2023 10:15:00 AM Scheduled Provider:Lionel WHITNEY MD Location:[facility] Appointment Type:URO Office Visit [facility] [place] Evaluation + Plan note Future Appointments Appointment Date:10/04/2023 10:15:00 AM Scheduled Provider:Lionel WHITNEY MD Location:[facility] Appointment Type:URO Office Visit Diagnostic Tests Pending * UroVysion Fish and Urine Cyto ([facility]) 04[facility]27/23 [facility] App[facility]ments Appointment Date:10/20/2023 12:00:00 PM Scheduled Provider: Location:[facility] Appointment Type:Urology CALL PAT FT Appointment Date:10/26/2023 10:00:00 AM Scheduled Provider: Location:[facility] Appointment Type:Urology FT Appointment Date:10/09/2024 10:15:00 AM Scheduled Provider:Lionel WHITNEY MD Location:[facility] Appointment Type:URO Office Visit Diagnostic Tests Pending * PSA Total 10/04/23 [facility] evaluation + Plan note Future Appointments Appointment Date:10/09/2024 10:15:00 AM Scheduled Provider:Lionel WHITNEY MD Location:[facility] Appointment Type:URO Office Visit Diagnostic Tests Pending * UroVysion Fish and Urine Cyto ([facility]) 10/26/23 [facility] App[facility]ments Appointment Date:07/12/2024 10:30:00 AM Scheduled Provider:Lionel WHITNEY MD Location:[facility] Appointment Type:URO Office Visit Appointment Date:10/09/2024 10:15:00 AM Scheduled Provider:Lionel WHITNEY MD Location:[facility] Appointment Type:URO Office Visit [facility] evaluation + Plan note Future Appointments Appointment Date:07/12/2024 10:30:00 AM Scheduled Provider:Lionel WHITNEY MD Location:[facility] Appointment Type:URO Office Visit Appointment Date:10/09/2024 10:15:00 AM Scheduled Provider:Lionel WHITNEY MD Location:[facility] [place] Appointment Type:URO Office Visit Diagnostic Tests Pending * Urine Cytology ([facility]) 05/22/24 [facility] evaluation noteNo assessment information available [facility] Work Phone: evaluation note* Diagnosis Onset Date Resolution Status Spinal stenosis of cervical region with radiculopathy acute Spinal stenosis of lumbar region with radiculopathy acute [facility] Work Phone: evaluation note* Diagnosis Onset Date Resolution Status Spinal stenosis of cervical region with radiculopathy acute Spinal stenosis of lumbar region with radiculopathy acute Colonization status acute COPD (chronic obstructive pulmonary disease) acute [facility] Work Phone: evaluation note* Diagnosis Unequal [...] Medication course changed documented in this encounter [facility] Work Phone: History general Narrative - [...] KNEE SCOPE Surgical History L shoulder NAE -[facility] Hospitalization History FLU X2-3 DAYS Hospitalization History see surg. hx. [facility] Other Hospital course Narrative No data available for this section [facility] Hospital Discharge instructions No data available for this section [facility] [place] progress note No data available for this section [facility] Chief Complaint and Reason for Visit [...] Diagnosis 1 Cervical spondylosis (M47.812) Referral Organization [facility] Referring Provider First Name Zoran Referring Provider Last Name Scott Referring Provider Specialty Neurologica l Surgery Referred Organization [facility] Referred Address [address], [place],[address] Referred Provider Specialty Physical The rapist Referral Priority Routine Reason evaluate and tr eat for neck and back pain Diagnosis 1 Cervical spondylosis (M47.812) Diagnosis 2 Low back pain, unspe cified (M54.50) Referral Organization 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 Specialty Start Date End Date Yolande Monterroso MD [address] [id number] PCP - General Family Medicine 05/08/24 Goals [...] and content) Reason Comments New Patient Visit Auoamudb-Janvdn-Ltot rtension Specialty Diagnoses / Procedures Referred By Contac t Referred To Contact Diagnoses Uncontrolled hypertension Shortness of breath Procedures ECG 12 Lead Cady Espinosa MD [address] [facility] [address] [place] [address] Phone: tel: fax: Referral ID Status Reason Start Date Expiration Date V isits Requested Visits Authorized [id number] Authorized 05/08/2024 05/08/2025 1 1 (unrecognized sect ion and content) No Status Records FoundNo Status Records FoundNo Status Records FoundNo Status Records FoundNo Status Records FoundNo Status Records FoundNo Status Records FoundNo Status Records Found INFORMATION SOURCE (unrecogn ized section and content) DATE CREATED AUTHOR 11/27/2022 [facility] DATE CREATED AUTHOR AUTHOR'S ORGANIZ ATION 09/03/2023 [facility] DATE CREATED AUTHOR AUTHOR'S ORGANIZ ATION 10/01/2023 [facility] EPIC DATE CREATED AUTHOR AUTHOR'S ORGANIZ ATION 05/11/2024 [facility] DATE CREATED AUTHOR AUTHOR'S ORGANIZ ATION 05/13/2024 [facility] DATE CREATED AUTHOR AUTHOR'S ORGANIZ ATION 05/23/2024 [facility] DATE CREATED AUTHOR AUTHOR'S ORGANIZ ATION 06/01/2024 [facility] DATE CREATED AUTHOR AUTHOR'S ORGANIZ ATION 06/04/2024 [facility] FOR RECORDS PERTAINING TO PATIENTS [...] BE BASED ON THE PRIMARY CLINICAL RECORDS. [facility] [employer] [facility]. provides no warranty or guarantee of the accuracy or completeness of information in this document.
[2024-06-05 11:33] VITALS: BP 146/66; BP 150/69; PULSE 80; PULSE 88; O2SAT 97
--- NOTE | 2024-06-05 11:36 | W.PM.PROCNOT ---
Date of procedure: 06/05/24 Pre-op diagnosis: Pain due to left sacroiliitis Post-op diagnosis: same as pre-op Procedure: Procedure: Left sacroiliac joint injection Medications: Bupivacaine 0.25% 3cc, depomedrol 40mg After informed consent was obtained, the patient was brought to the medical procedure unit and placed in the prone position, when a timeout was completed verifying correct patient, procedure, site, positioning, implant, and/or special equipment.? The skin overlying the area was prepped and draped in standard sterile fashion using alcohol.? A 25-gauge needle was inserted towards the left sacroiliac joint under direct fluoroscopic imaging.? Needle tip was advanced until the joint was encountered.? We instilled a total of 2 mL of solution.? Postoperatively needles were removed.? The patient tolerated the procedure well without complication.? The patient reported reduction in pain symptoms postoperatively. Anesthesia: Local Surgeon: Tamkio Landa Pathology: none sent Condition: stable Disposition: no change
[2024-06-05] MEDS: IOHEXOL 240 MG/ML - 10 ML VIAL 12 MG INJ (11:37)
[2024-06-05] MEDS: METHYLPREDNISOLONE ACETATE 40 MG/ML VIAL INJ (11:37)
[2024-06-05] MEDS: BUPIVACAINE HCL 0.25% PF 25 MG/10 ML VIAL 2 ML INJ (11:37)
[2024-06-05] MEDS: LIDOCAINE HCL 2% 400 MG/20 ML MDV INJ (11:38)
== END 2024-06-05 11:41 | disposition home or self-care (01) ==
LOC: SURGOUT 11:03
PROVIDERS: PCP Family Medicine; Visit Provider Anesthesiology
DX: M46.1 Sacroiliitis, not elsewhere classified (principal)
CPT/HCPCS: 27096; J0665; J1010; Q9966

== ENCOUNTER 2024-06-27 10:02 | Outpatient (OUT) | payer MEDICARE, SELFPAY ==
--- NOTE | 2024-06-27 11:04 | XR_ITS ---
The [address] [address] Patient Name: MARY DIAZ MRN: [id number] date: 1950 Sex: M Assigned Patient Location: [facility] Current Patient Location: [facility] Accession/Order Number: [id number] Exam Date: 06/27/2024 10:55 Report Date: 06/27/2024 15:23 At the request of: LIONEL WHITNEY Procedure: XR chest 2V EXAM: XR chest 2V HISTORY: Preop exam COMPARISON: 09/10/2023 TECHNIQUE: Upright PA and lateral chest x-ray FINDINGS: The heart is not enlarged and the vasculature is not distended. No acute infiltrate, effusion or pneumothorax is identified. Slight chronic changes are seen in the lungs, with flattening of the hemidiaphragms indicating COPD. The osseous structures are grossly intact. Hardware projects over the cervical spine. An anchor suture is seen in the right humeral head. XR/XR chest 2V IMPRESSION: No acute infiltrate or evidence of cardiac decompensation. Mild chronic changes are present. The overall appearance of the chest has not changed significantly. Electronically authenticated by: MURIEL FIGUEROA Date: 06/27/2024 15:23
--- NOTE | 2024-06-27 11:04 | PM.PRESUREVA ---
History of Present Illness History of Present Illness Chief complaint: bladder tumors Narrative: Patient presents for presurgical testing. The patient reports a history of bladder and prostate cancer. He had a cystoscopy done in April and is now scheduled for a TURBT. The patient states he has very mild urinary complaints including incomplete bladder emptying. He denies hematuria, dysuria, fever, abdominal pain, or any other complaints. Review of Systems ROS Narrative REVIEW OF SYSTEMS: Negative except as stated in HPI, ten or more systems reviewed. Constitutional: No fever, chills, weakness ENT: No sore throat or epistaxis Cardiovascular: No edema, chest pain, palpitations, or activity intolerance Respiratory: No shortness of breath, cough, or wheezing Musculoskeletal: No joint pain or swelling Gastrointestinal: No abdominal pain, constipation, diarrhea, or vomiting Genitourinary: No dysuria or hematuria Neurological: No numbness, tingling, weakness, or headache Psychiatric: No mood changes [facility] Medical History (Updated 06/27/24 @ 11:06 by aMylin Pabon NP) Bladder tumor ?D49.4 - Neoplasm of unspecified behavior of bladder (ICD-10) Carotid bruit ?R09.89 - Other specified symptoms and signs involving the circulatory and respiratory systems (ICD-10) Hip pain ?M25.559 - Pain in unspecified hip (ICD-10) High cholesterol ?E78.00 - Pure hypercholesterolemia, unspecified (ICD-10) Hypothyroidism ?E03.9 - Hypothyroidism, unspecified (ICD-10) COPD (chronic obstructive pulmonary disease) ?J44.9 - Chronic obstructive pulmonary disease, unspecified (ICD-10) Arthritis ?M19.90 - Unspecified osteoarthritis, unspecified site (ICD-10) Anemia ?D64.9 - Anemia, unspecified (ICD-10) Bladder cancer ?C67.9 - Malignant neoplasm of bladder, unspecified (ICD-10) 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 - Other specified disorders of bladder (ICD-10) Neck pain ?M54.2 - Cervicalgia (ICD-10) Low back pain ?M54.50 - Low back pain, unspecified (ICD-10) Osteoarthritis ?M19.90 - Unspecified osteoarthritis, unspecified site (ICD-10) Acid reflux ?K21.9 - Gastro-esophageal reflux disease without esophagitis (ICD-10) Hearing deficit ?H91.90 - Unspecified hearing loss, unspecified ear (ICD-10) Prostate cancer ?C61 - Malignant neoplasm of prostate (ICD-10) Former smoker ?Z87.891 - Personal history of nicotine dependence (ICD-10) Hypertension ?I10 - Essential (primary) hypertension (ICD-10) Surgical History (Updated 06/27/24 @ 11:03 by Maylin Pabon NP) H/O cystoscopy ?Z98.890 - Other specified postprocedural states (ICD-10) S/P epidural steroid injection ?Z92.241 - Personal history of systemic steroid therapy (ICD-10) H/O transurethral resection of bladder tumor (TURBT) ?Z98.890 - Other specified postprocedural states (ICD-10) ?Z86.03 - Personal history of neoplasm of uncertain behavior (ICD-10) History of colonoscopy ?Z98.890 - Other specified postprocedural states (ICD-10) History of arthroscopy of knee ?Z98.890 - Other specified postprocedural states (ICD-10) History of foot surgery ?Z98.890 - Other specified postprocedural states (ICD-10) History of appendectomy ?Z90.49 - Acquired absence of other specified parts of digestive tract (ICD-10) History of hernia repair ?Z98.890 - Other specified postprocedural states (ICD-10) ?Z87.19 - Personal history of other diseases of the digestive system (ICD-10) S/P cystoscopy ?Z98.890 - Other specified postprocedural states (ICD-10) H/O transurethral resection of bladder tumor (TURBT) (01/14/23) ?Z98.890 - Other specified postprocedural states (ICD-10) ?Z86.03 - Personal history of neoplasm of uncertain behavior (ICD-10) H/O transurethral resection of bladder tumor (TURBT) ?Z98.890 - Other specified postprocedural states (ICD-10) ?Z86.03 - Personal history of neoplasm of uncertain behavior (ICD-10) S/P cervical spinal fusion ?Z98.1 - Arthrodesis status (ICD-10) H/O prostatectomy ?Z90.79 - Acquired absence of other genital organ(s) (ICD-10) History of ankle surgery ?Z98.890 - Other specified postprocedural states (ICD-10) H/O shoulder surgery ?Z98.890 - Other specified postprocedural states (ICD-10) Family History Other Depression Family history of diabetes mellitus Family history of hypertension Social History Within the past year, how often did you have a drink containing alcohol: 2-4 times a month Smoking status: Former smoker Non-prescribed substance use: denies use Previous occupational history: retired Highest level of school completed/degree received: Associate degree: occupational, technical, vocational program Meds Home Medications and Allergies Home Medications ?Medication ?Instructions ?Recorded ?Confirmed ?Type diclofenac sodium 75 mg 75 mg PO BID 11/20/22 06/27/24 History tablet,delayed release fluticasone fur. 100 mcg-umeclid 1 inh inhalation DAILY 11/20/22 06/27/24 History 62.5 mcg-vilant 25 mcg inhalat.powder (Trelegy Ellipta) pantoprazole 40 mg tablet,delayed 40 mg PO DAILY 11/20/22 06/27/24 History release methocarbamol 500 mg tablet 500 mg PO QDAY PRN muscle spasm 04/21/23 06/27/24 History metoprolol tartrate 50 mg tablet 50 mg PO Q12H 04/10/24 06/27/24 History liothyronine 25 mcg tablet 25 mcg PO DAILY 06/27/24 06/27/24 History lisinopril 20 mg tablet 20 mg PO DAILY 06/27/24 06/27/24 History lisinopril 20 1 tab PO DAILY 06/27/24 06/27/24 History mg-hydrochlorothiazide 12.5 mg tablet rosuvastatin 20 mg tablet 20 mg PO DAILY 06/27/24 06/27/24 History tizanidine 4 mg capsule 4 mg PO BID PRN muscle spasticity 06/27/24 06/27/24 History Allergies Allergy/AdvReac Type Severity Reaction Status Date / Time codeine Allergy Unknown Hives Verified 06/05/24 11:14 oxycodone (From Percocet) AdvReac Agitated Verified 06/27/24 10:32 Exam Narrative Exam Narrative: Constitutional: Awake, alert, comfortable, well-appearing, nontoxic, interactive, vital signs as charted Head: Normocephalic, atraumatic Neck: Supple, normal appearance, limited range of motion, no meningeal signs, no lymphadenopathy Respiratory: No respiratory distress, breath sounds clear Cardiovascular: Regular rate and rhythm, strong and regular heart tones Abdomen: Nontender, normal bowel sounds, soft, no CVA tenderness Musculoskeletal: Normal gait, no swelling or edema Skin: No rashes or induration, no lesions, only visible skin inspected Neuro: No neurological deficits, normal sensation Psychiatric: Oriented ?3, normal affect Assessment and Plan Assessment and Plan (1) Bladder cancer: (2) Bladder tumor: Plan Cystoscopy, TURBT, possible left ureteroscopy scheduled with Dr. Carrington July 06, 2024.
[2024-06-27 11:06] LABS: Basophils Percent Auto 0.4 % (0.2-2.0); Eosinophils Absolute Auto 0.1 10^3/uL (0.0-0.7); Hematocrit 42.8 % (42.0-54.0); Hemoglobin 13.9 g/dL (14.0-18.0); Immature Granulocytes Abs Auto 0.11 10^3/uL (0.00-0.03); Immature Granulocytes Pct Auto 1.2 % (0.0-0.5); Lymphocytes Absolute Auto 2.1 10^3/uL (1.2-3.8); Lymphocytes Percent Auto 22.9 % (20.5-60.0); Mean Corpuscular HGB Conc 32.5 g/dL (29.9-35.2); Mean Corpuscular Hemoglobin 30.2 pg (25.9-34.0); Mean Corpuscular Volume 92.8 fL (80.0-94.0); Mean Platelet Volume 9.5 fL (9.5-13.5); Monocytes Absolute Auto 0.7 10^3/uL (0.3-0.8); Monocytes Percent Auto 7.1 % (1.7-12.0); Neutrophils Absolute Auto 6.3 10^3/uL (1.4-6.5); Neutrophils Percent Auto 67.4 % (43.0-75.0); Platelet Count 272 10^3/uL (150-450); Red Blood Count 4.61 10^6/uL (4.70-6.10); Red Cell Distribution Width 14.4 % (11.0-15.0); White Blood Count 9.3 10^3/uL (4.0-11.0)
[2024-06-27 11:24] LABS: Anion Gap 12.5; BUN Creatinine Ratio 14.1; Calcium 9.9 mg/dL (8.5-10.1); Carbon Dioxide 28.6 mmol/L (21.0-32.0); Chloride 102 mmol/L (98-107); Estimated GFR (African America 59 (>=60 mL/min/1.73m^2); Estimated GFR (Non-African Ame 49 (>=60 mL/min/1.73m^2); Glucose 140 mg/dL (74-106); Potassium 4.1 mmol/L (3.5-5.1); Sodium 139 mmol/L (136-145)
[2024-06-27 11:39] LABS: Partial Thromboplastin Time 31.6 sec (22.3-36.2); Prothrombin Time 10.6 sec (9.0-11.6)
== END 2024-06-27 10:03 | disposition home or self-care (01) ==
PROVIDERS: PCP Family Medicine; Visit Provider Urology
DX: Z01.810 Encounter for preprocedural cardiovascular examination (principal); Z01.812 Encounter for preprocedural laboratory examination; Z01.818 Encounter for other preprocedural examination; D41.4 Neoplasm of uncertain behavior of bladder; C61 Malignant neoplasm of prostate; N20.0 Calculus of kidney
CPT/HCPCS: 71046; 80048; 85025; 85610; 85730; G0463

== ENCOUNTER 2024-07-03 13:41 | Outpatient (OUT) | payer MEDICARE, SELFPAY ==
--- NOTE | 2024-07-03 14:28 | P.CN_ITS ---
Consult Note: HPI Data of Consult Patient: known to practice within the last 3 years Consult date: 07/03/24 Requesting Physician: Tamiko Landa MD Primary Care Provider: Deandre Staley MD Consult Narrative Reason for consult: left hip pain Narrative: 74yom who presents for assessment. has worsening left hip pain. uses norco as needed. has upcoming bladder cancer surgery. cc:: CC: Tamiko Landa MD Review of Systems ROS Status of ROS 10 or more systems reviewed and unremark able except as noted in history and below PFSH PFS Medical History Bladder tumor ?D49.4 - Neoplasm of unspecified behavior of bladder (ICD-10) Carotid bruit ?R09.89 - Other specified symptoms and signs involving the circulatory and respiratory systems (ICD-10) Hip pain ?M25.559 - Pain in unspecified hip (ICD-10) High cholesterol ?E78.00 - Pure hypercholesterolemia, unspecified (ICD-10) Hypothyroidism ?E03.9 - Hypothyroidism, unspecified (ICD-10) COPD (chronic obstructive pulmonary disease) ?J44.9 - Chronic obstructive pulmonary disease, unspecified (ICD-10) Arthritis ?M19.90 - Unspecified osteoarthritis, unspecified site (ICD-10) Anemia ?D64.9 - Anemia, unspecified (ICD-10) Bladder cancer ?C67.9 - Malignant neoplasm of bladder, unspecified (ICD-10) 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 - Other specified disorders of bladder (ICD-10) Neck pain ?M54.2 - Cervicalgia (ICD-10) Low back pain ?M54.50 - Low back pain, unspecified (ICD-10) Osteoarthritis ?M19.90 - Unspecified osteoarthritis, unspecified site (ICD-10) Acid reflux ?K21.9 - Gastro-esophageal reflux disease without esophagitis (ICD-10) Hearing deficit ?H91.90 - Unspecified hearing loss, unspecified ear (ICD-10) Prostate cancer ?C61 - Malignant neoplasm of prostate (ICD-10) Former smoker ?Z87.891 - Personal history of nicotine dependence (ICD-10) Hypertension ?I10 - Essential (primary) hypertension (ICD-10) Surgical History H/O cystoscopy ?Z98.890 - Other specified postprocedural states (ICD-10) S/P epidural steroid injection ?Z92.241 - Personal history of systemic steroid therapy (ICD-10) H/O transurethral resection of bladder tumor (TURBT) ?Z98.890 - Other specified postprocedural states (ICD-10) ?Z86.03 - Personal history of neoplasm of uncertain behavior (ICD-10) History of colonoscopy ?Z98.890 - Other specified postprocedural states (ICD-10) History of arthroscopy of knee ?Z98.890 - Other specified postprocedural states (ICD-10) History of foot surgery ?Z98.890 - Other specified postprocedural states (ICD-10) History of appendectomy ?Z90.49 - Acquired absence of other specified parts of digestive tract (ICD- 10) History of hernia repair ?Z98.890 - Other specified postprocedural states (ICD-10) ?Z87.19 - Personal history of other diseases of the digestive system (ICD-10) S/P cystoscopy ?Z98.890 - Other specified postprocedural states (ICD-10) H/O transurethral resection of bladder tumor (TURBT) (01/14/23) ?Z98.890 - Other specified postprocedural states (ICD-10) ?Z86.03 - Personal history of neoplasm of uncertain behavior (ICD-10) H/O transurethral resection of bladder tumor (TURBT) ?Z98.890 - Other specified postprocedural states (ICD-10) ?Z86.03 - Personal history of neoplasm of uncertain behavior (ICD-10) S/P cervical spinal fusion ?Z98.1 - Arthrodesis status (ICD-10) H/O prostatectomy ?Z90.79 - Acquired absence of other genital organ(s) (ICD-10) History of ankle surgery ?Z98.890 - Other specified postprocedural states (ICD-10) H/O shoulder surgery ?Z98.890 - Other specified postprocedural states (ICD-10) Family History Other Depression Family history of diabetes mellitus Family history of hypertension Social History Within the past year, how often did you have a drink containing alcohol: 2-4 times a month Smoking status: Former smoker Non-prescribed substance use: denies use Previous occupational history: retired Highest level of school completed/degree received: Associate degree: occupatio nal, technical, vocational program Meds Home Medications and Allergies Home Medications ?Medication ?Instructions ?Recorded ?Confirmed ?Type diclofenac sodium 75 mg 75 mg PO BID 11/20/22 06/27/24 History tablet,delayed release fluticasone fur. 100 mcg-umeclid 1 inh inhalation DAILY 11/20/22 06/27/24 History 62.5 mcg-vilant 25 mcg inhalat.powder (Trelegy Ellipta) pantoprazole 40 mg tablet,delayed 40 mg PO DAILY 11/20/22 06/27/24 History release methocarbamol 500 mg tablet 500 mg PO QDAY PRN muscle spasm 04/21/23 06/27/24 History metoprolol tartrate 50 mg tablet 50 mg PO Q12H 04/10/24 06/27/24 History liothyronine 25 mcg tablet 25 mcg PO DAILY 06/27/24 06/27/24 History lisinopril 20 mg tablet 20 mg PO DAILY 06/27/24 06/27/24 History lisinopril 20 1 tab PO DAILY 06/27/24 06/27/24 History mg-hydrochlorothiazide 12.5 mg tablet rosuvastatin 20 mg tablet 20 mg PO DAILY 06/27/24 06/27/24 History tizanidine 4 mg capsule 4 mg PO BID PRN muscle spasticity 06/27/24 06/27/24 History Allergies Allergy/AdvReac Type Severity Reaction Status Date / Time codeine Allergy Unknown Hives Verified 06/05/24 11:14 oxycodone (From Percocet) AdvReac Agitated Verified 06/27/24 10:32 Exam Narrative Exam Narrative: Psych-alert and oriented x 3.? Attentive and appropriate, constitutionally normal, displays normal mood and affect per situation.? There are no obvious deficits in memory, reasoning, or intellect.? Skin-no obvious rashes, bruising, erythema noted to the patient's area of pain. Extremities- extremities are warm with minimal edema and palpable pulses. Hip-tenderness to palpation is noted over the left hip joint.? Pain is elicited with internal and external rotation of the hip.? Hip provocative maneuvers are positive and consistent with the patient's normal pain.? Coordination remains intact.? Gait remains antalgic. Assessment and Plan Assessment and Plan (1) Left hip pain: Plan 74yom who presents for assessment. notes worsening left hip pain. failed conservative measures, as noted. given symptoms and exam, will order left hip xr. he is in agreement. meds reviewed, no changes. follow up after imaging.
== END 2024-07-03 13:42 | disposition home or self-care (01) ==
LOC: PM 13:41
PROVIDERS: PCP Family Medicine; Visit Provider Anesthesiology
DX: M25.552 Pain in left hip (principal)
CPT/HCPCS: G0463

== ENCOUNTER 2024-07-04 11:41 | Outpatient (OUT) | payer MEDICARE, SELFPAY ==
--- OUTSIDE RECORDS SUMMARY | 2024-07-04 11:59 | XMS_ITS | CCD ---
Author Organization [facility]ini[facility] Care Team Providers Care Mud Trucker Name Role Phone MD Yolande Monterroso Primary Care Provider [phone] MD Lionel Whitney Attending Provider [phone] Yolande Monterroso Primary Care Physician Leidy Plummer Unavailable Unavailable MD Yolande Monterroso Primary Care Provider [phone] MD Lionel Whitney Attending Provider Zoran Chavez [...] Admitting Unavailable DR ZORAN CHAVEZ Attending Unavailable ZIJERRY, DR ALLI Burgos Consulting Unavailable HOY .DR LANIER Primary Care Unavailable JAMAICA GONZALEZ Consulting Unavailable SCOTT, DR MEEHAN Consulting Unavailable KRISS .DR LANIER Consulting Unavailable HOY ., DR LANIER Admitting Unavailable HOY ., DR LAINER Primary Care Unavailable HOY ., DR LANIER Attending Unavailable MARAVILLA .DR FATEMEH Consulting Unavailable MAGGIE, DR SOCORRO Zapata Consulting Unavailable PARTHA HYATT Consulting Unavailable DR ZORAN CHAVEZ Attending Unavailable ROSA ELENAY ., DR LANIER Primary Care Unavailable DR ZORAN CHAVEZ Admitting Unavailable HOReggie .DR LANIER Consulting Unavailable HOY ., DR [...] ., DR LANIER Primary Care Unavailable MD Yoladne Monterroso Primary Care Provider [phone] MD Zoran Chavez Attending Provider [phone] MD Yolande Monterroso Primary Care Provider [phone] LIDA Lowery Attending Provider Yolande Monterroso Primary Care Unavailable Esther Lowery Admitting Unavailable Esther Lowery Attending Unavailable Yolande Monterroso Primary Care Unavailable Lowery, Esther Admitting Unavailable Esther Lowery Attending Unavailable Yolande Monterroso Primary Care Unavailable Zoran Chavez Admitting Unavailable Zoran Chavez Attending Unavailable VASU GALEANO Attending Unavailable KELLY ORTIZ Attending Unavailable MD Yolande Monterroso Primary Care Provider [phone] LIDA Lowery Attending Provider Yolande Monterroso MD Primary Care Provider [phone] WHITNEY, Lionel R Referring Unavailable WHITNEY, Lionel [...] Attending Unavailable WHITNEY, Lionel R Admitting Unavailable CADY ESPINOSA Attending Unavailable YOLANDE MONTERROSO Primary Care Unavailable CADY ESPINOSA Referring Unavailable Giramírez NOBLE, Andrius Vjayesh Attending Unavailable Gieditis , Andrius Vytautpascale Attending Unavailable Giramírez NOBLE, Andrius Vytautas Attending Unavailable Giedhali NOBLE, Andrius Vytautas Attending Unavailable Giedhali NOBLE, Andrius Vytautas Attending Unavailable CADY ESPINOSA Referring Unavailable YOLANDE MONTERROSO Primary Care Unavailable CADY ESPINOSA Referring Unavailable YOLANDE MONTERROSO Primary Care Unavailable Allergies Allergy Classification Reported Allergen(s) Allergy Type Date of Onset Reaction(s) Facility (10 sources) Acetaminophen; Translations: [acetaminophen] Drug Allergy 0 Itching, Itching agitated, Itching agitated, aggitation [facility] (20 sources) Codeine; Translations: [Codeine] Drug Allergy 4 rash, Agitation [facility] (11 sources) oxyCODONE; Translations: [oxycodone] Drug Allergy 0 Itching, agitated, Itching, agitated, aggitation [facility] (16 sources) Acetaminophen / oxyCODONE; Translations: [acetaminophen-oxyc odone] Drug Allergy aggitation [facility] James Comment on above: pt states this does not work for pt, pt is not allergic to vicodin (6 sources) cyclobenzaprine Drug Allergy 4 itching [facility] (6 sources) HYDROcodone Drug Allergy 4 anxiety [facility] (6 sources) tiZANidine Drug Allergy 4 hives [facility] (4 sources) Acetaminophen / HYDROcodone; Translations: [Vicodin] Drug Allergy [facility] Repository (2 sources) Acetaminophen / oxyCODONE Drug Allergy [facility] Repository (1 source) atorvastatin Drug Allergy [facility] Repository (2 sources) tiZANidine Drug Allergy [facility] Repository (1 source) cyclobenzaprine Drug Allergy 4 [facility] Repository (1 source) HYDROcodone Drug Allergy 4 [facility] Repository (1 source) tiZANidine Drug Allergy 4 [facility] Repository (2 sources) Acetaminophen / oxyCODONE; Translations: [Percocet 5/325] Drug Allergy [facility] Repository Medications Current Medications Medication Drug Class(es) Dates Sig (Normalized) Sig (Original) acetaminophen 325 mg / HYDROcodone bitartrate 5 mg oral tablet (9 sources) Opioid Agonist Start: 08-12-2023 take 1 tablet by mouth every twenty-four hours as needed HYDROcodone-aceta minophen ([place]) 5-325 mg tablet Take 1 tablet by [...] Start: 09-19-2021 take 2 tablets by mo [facility] twice daily carvedilol 6.25 mg [...] 1 tablet by mouth twice daily diclofenac (Voltaren) 75 mg EC tablet Take 1 tablet (75 mg) by mouth 2 times a day. 09/03/2022 Active Start: 08-07-2019 End: 04-19-2020 take 75 mg by mouth twice daily Diclofenac Sodium Discontinued 75 MG PO Twice daily August 07, 2019 1:00am April 19, 2020 8:04am Irghhkgwrnf-Dqofmduma-Jfncmu er (13 sources) Anticholinergic, Corticosteroid, beta2-Adrenergic Agonist Start: 08-07-2019 Kcwjietuyos-Cjvvtijvj-Mafkgo er (Trelegy Ellipta) 100-62.5-25 mcg Blister With [...] mg / lisinopril 20 mg oral tablet (3 sources) Thiazide Diuretic, Angiotensin Converting Enzyme Inhibitor Start: 05-08-2024 End: 05-08-2025 take 1 tablet by mouth once daily lisinopriL-hydrochlorothiazide 20-12.5 mg tablet Indications: Uncontrolled hypertension Take 1 tablet by mouth once daily. 90 tablet 1 05/08/2024 05/08/2025 Active liothyronine (10 sources) l-Triiodothyr onine Start: 10-11-2023 take 25 [...] Status: Ordered lisinopril 20 mg oral tablet (16 sources) Angiotensin Converting Enzyme Inhibitor Start: 05-04-2024 take 1 tablet by mouth once daily lisinopril 20 mg tablet Take 1 tablet (20 mg) by mouth once daily. 05/04/2024 Active Start: 06-22-2017 End: 10-17-2021 take 40 mg by mouth at bedtime Lisinopril Discontinued 40 MG PO Bedtime August 07, 2019 1:00am October 17, 2021 12:24pm methocarbamol 500 mg oral tablet (5 sources) Muscle Relaxant Start: 04-21-2023 take 1 tablet by mouth every twenty-four hours as needed methocarbamol (Robaxin) 500 mg tablet Take 1 tablet (500 mg) by mouth once daily as needed for muscle spasms. 04/21/2023 Active Metoprolol (1 source) beta-Adrenergi c Boogie Start: 03-28-2024 Metoprolol Tartrate Active MG [...] pantoprazole 40 mg delayed release oral tablet (16 sources) Proton Pump Inhibitor Start: 08-12-19 Pantoprazole Active MG PO August 12, 2023 1:00am Start: 10-18-2022 take 1 tablet by barry th once daily in the evening pantoprazole (ProtoNix) 40 mg EC tablet Take 1 tablet (40 mg) by mouth once daily in the evening. 10/18/2022 Active rosuvastatin calcium 20 mg oral tablet (3 sources) HMG-CoA Reductase Inhibitor Start: 05-08-2024 End: 11-04-2024 [...] Discontinued 500 MG PO Q12H 14 February 17, 2022 12:00am August 12, 2023 [...] [facility]/pharmacy #[id number], 170, cm, 10/26/23 11:14:00 EDT, [...] Ordered Start: 11-05-2021 take 1 tablet by [facility] once daily Cipro 500 mg Tab 500 mg = 1 tab(s), Oral, Daily, Take 1 tab at nighttime prior to the day of procedure, then 1 tab right after the procedure, # 2 tab(s), Refills(s) 0, [id number], cm, 11/05/21 11:37:00 EDT, Height/Length [...] period., # 30 tab(s), Refills(s) 3, Pharmacy: [id number], 170, cm, 10/04/23 10:36:00 [...] period., # 30 tab(s), Refills(s) 3, Pharmacy: [id number], 170, cm, 02/24/22 10:53:00 EDT, Height/Length Dosing, 78, kg, 02/24/22 10:53:00 EDT, Weight Dosing Start Date: 07/05/22 Status: Ordered Start: 09-19-2021 sildenafil 100 mg Tab 100 mg = 1 tab(s), Oral, Daily, Take 1 pill 30 minutes prior to sexual relations, # 30 tab(s), Refills(s) 3, Pharmacy: [id number], 170, cm, 09/19/21 10:16:00 EDT, Height/Length Dosing, 78, kg, 09/19/21 10:16:00 EDT, Weight Dosing Start Date: 09/19/21 Status: Ordered Problems Active Problems Problem Classification Problem Date Documented Da te Episodic/Chronic Abdominal hernia (20 sources) Umbilical hernia 06-08-2017 Episodic Acute and unspecified renal failure (1 source) Acute kidney failure, unspecified; Translations: [ACUTE KIDNEY FAILURE UNSPECIFIED] Onset: Episodic Calculus of urinary tract (20 sources) History of calculus of kidney; Translations: [Personal history of urinary calculi] Onset: 2 Episodic Cancer of bladder (20 sources) Malignant tumor of urinary bladder; Translations: [Malignant neoplasm of bladder, unspecified] Onset: 2 Chronic Cancer of bladder (12 sources) Personal history of malignant neoplasm of bladder; Translations: [History of malignant neoplasm of bladder] Onset: 3 Episodic Cancer of prostate (20 sources) Malignant tumor of prostate 08-22-2014 Chronic Comment on above: just had a surgery d one radical prostectomy at [facility] Cancer of prostate (20 sources) Personal [...] Onset: 3 Episodic Disorders of lipid metabolism (6 sources) Mixed hyperlipidemia; Translations: [Mixed hyperlipidemia] Onset: [...] region] Episodic Other aftercare (3 sources) Other fpc (current) drug therapy; Translations: [OTH OPERATIONS MANAGER ASSISTANT CURRENT DRUG THERAPY] Onset: 3 Episodic Other aftercare (4 sources) Treatment changed; Translations: [Other terminal press operator (current) drug therapy] Onset: 4 05-08-2024 Episodic [...] and poterior tibial pulses. Other circulatory disease (8 sources) Other specified symptoms and signs involving the circulatory and respiratory systems; Translations: [OTH SPEC SX SIGNS INVLV CIRC RS] Onset: 3 Episodic Other circulatory disease (6 sources) Unequal blood pressure in arms; Translations: [Other specified symptoms and signs involving the circulatory and respiratory systems] Onset: 4 05-08-2024 Episodic Other circulatory disease (5 sources) Carotid bruit; Translations: [Other specified symptoms and [...] injuries and conditions due to external causes (4 sources) H/O: fracture; Translations: [Personal history of (healed) traumatic fracture] Onset: 4 05-08-2024 Episodic Other injuries and conditions due to external causes (2 sources) Personal history of (healed) traumatic fracture; Translations: [Personal history of (healed) traumatic fracture] Onset: 4 Episodic Other lower respiratory disease (1 source) Other forms of dyspnea; Translations: [OTHER FORMS OF DYSPNEA] Onset: 3 Episodic Other lower respiratory disease (10 sources) Dyspnea; Translations: [Shortness of breath] Onset: 4 05-08-2024 Episodic Other lower respiratory disease (2 sources) Shortness of breath; Translations: [Shortness of breath] [...] Episodic Other nutritional; endocrine; and metabolic disorders (4 sources) Overweight in adulthood with body mass [...] of mental health and substance abuse codes (12 sources) Personal history of nicotine dependence; Translations: [...] UNSPECIFIED; Translations: [COUGH, UNSPECIFIED] Onset: 10-05-2022 Unclassified (3 sources) Onset: 05-08-2024 05-08-2024 Urinary tract infections (4 sources) Urinary tract infection, site not specified; Translations: [UTI SITE NOT SPECIFIED] Onset: 03-12-2022 Episodic Results Test Name Value Interpretation Reference Range Facility [facility]STHORACIC ECHO (TTE) COMPLETE [address], [address] [place] [address] TRANSTHORACIC ECHOCARDIOGRAM REPORT Patient Name: MARY Ahn Physician: [id number] Rolly Michaels MD, [facility] Study Date: 06/09/2024 Ordering Provider: [id number] CADY ESPINOSA MRN/PID: [id number] Fellow: Nurse: Date of /Age: 8 1950 / 74 years Box Truck Washer: Alyse Arriaga RDCS, T Gender Assigned at Additional Staff: : Height: 182.88 cm Admit Date: Weight: 86.64 kg Admission Status: BSA / BMI: 2.09 m2 / 25.90 Department Location: [facility] kg/m2 [facility] Blood Pressure: 162 /82 mmHg Study Type: TRANSTHORACIC ECHO (TTE) COMPLETE Diagnosis/ICD: Shortness of breath-R06.02 Indication: HTN, Hyperlipidemia, Former Smoker, Asymetrical Upper Extremity Blood Pressures, History of Bladder and Prostate Cancer CPT Codes: Echo Complete w Full [id number] Study Detail: The following Echo studies were performed: 2D, M-Mode, Doppler and color flow. PHYSICIAN INTERPRETATION: Left Ventricle: Left ventricular ejection fraction is normal, by visual estimate at 60-65%. There are no regional wall motion abnormalities. The left ventricular cavity size is normal. There is mild increased septal and normal posterior left ventricular wall thickness. Spectral Doppler shows a Grade I (impaired relaxation pattern) of left ventricular diastolic filling with normal left atrial filling pressure. Left Atrium: The left atrium is normal in size. Right Ventricle: The right ventricle is normal in size. There is normal right ventricular global systolic function. Right Atrium: The right atrium is normal in size. Aortic Valve: The aortic valve is trileaflet. The aortic valve dimensionless index is 0.76. There is trace aortic valve regurgitation. The peak instantaneous gradient of the aortic valve is 9 mmHg. The mean gradient of the aortic valve is 4 mmHg. Mitral Valve: The mitral valve is normal in structure. The peak instantaneous gradient of the mitral valve is 4 mmHg. There is trace mitral valve regurgitation. Tricuspid Valve: The tricuspid valve is structurally normal. There is trace tricuspid regurgitation. Pulmonic Valve: The pulmonic valve is structurally normal. There is no indication of pulmonic valve regurgitation. Pericardium: No pericardial effusion noted. Aorta: The aortic root is normal. Pulmonary Artery: The Doppler estimated pulmonary artery diastolic pressure is 20.1 mmHg. Systemic Veins: The inferior vena cava appears normal in size. In comparison to the previous echocardiogram(s): No previous studies are available for comparison. CONCLUSIONS: 1. Left ventricular ejection fraction is normal, by visual estimate at 60-65%. 2. Spectral Doppler shows a Grade I (impaired relaxation pattern) of left ventricular diastolic filling with normal left atrial filling pressure. 3. There is normal right ventricular global systolic function. 4. No previous studies are available for comparison. QUANTITATIVE DATA SUMMARY: 2D MEASUREMENTS: Normal Ranges: Ao Root d: 3.30 cm (2.0-3.7cm) LAs: 3.50 cm (2.7-4.0cm) RVIDd: 3.50 cm (0.9-3.6cm) IVSd: 1.25 cm (0.6-1.1cm) LVPWd: 0.85 cm (0.6-1.1cm) LVIDd: 5.09 cm (3.9-5.9cm) LVIDs: 3.22 cm LV Mass Index: 95.9 g/m2 LV % FS 36.7 % LV SYSTOLIC FUNCTION BY 2D PLANIMETRY (MOD): Normal Ranges: EF-A4C View: 71 % (>=55%) EF-A2C View: 67 % EF-Biplane: 68 % EF-Visual: 63 % LV EF Reported: 63 % LV DIASTOLIC FUNCTION: Normal Ranges: MV Peak E: 0.52 m/s (0.7-1.2 m/s) MV Peak A: 0.92 m/s (0.42-0.7 m/s) E/A Ratio: 0.57 (1.0-2.2) MV e' 0.073 m/s (>8.0) MV lateral e' 0.08 m/s MV medial e' 0.06 m/s E/e' Ratio: 7.20 (<8.0) MITRAL VALVE: Normal Ranges: MV Vmax: 0.95 m/s (<=1.3m/s) MV peak P.6 mmHg (<5mmHg) MV mean P.0 mmHg (<48mmHg) MITRAL INSUFFICIENCY: Normal Ranges: MR Vmax: 460.00 cm/s AORTIC VALVE: Normal Ranges: AoV Vmax: 1.47 m/s (<=1.7m/s) AoV Peak P.6 mmHg (<20mmHg) AoV Mean P.0 mmHg (1.7-11.5mmHg) LVOT Max Sedrick: 0.89 m/s (<=1.1m/s) AoV VTI: 27.70 cm (18-25cm) LVOT VTI: 21.00 cm LVOT Diameter: 2.50 cm (1.8-2.4cm) AoV Area, VTI: 3.72 cm2 (2.5-5.5cm2) AoV Area,Vmax: 2.99 cm2 (2.5-4.5cm2) AoV Dimensionless Index: 0.76 AORTIC INSUFFICIENCY: AI Vmax: 3.53 m/s AI Half-time: 406 msec AI Decel Rate: 517.50 cm/s2 TRICUSPID VALVE/RVSP: Normal Ranges: Peak TR Velocity: 2.61 m/s RV Syst Pressure: 30 mmHg (< 30mmHg) PULMONIC VALVE: Normal Ranges: PV Max Sedrick: 0.8 m/s (0.6-0.9m/s) PV Max P.3 mmHg PIEDV: 2.07 m/s PADP: 20.1 mmHg [id number] Rolly Michaels MD, FACC Electronically signed on 06/09/2024 at 4:40:40 PM Final Normal [facility] Heart TransthoracicOrdere d By: Rolly Michaels on 06-09-2024 Aortic Valve Area by Continuity of Peak Velocity 2.99 cm2 [facility] Work Phone: Aortic Valve Area by Continuity of VTI 3.72 cm2 [facility] Work Phone: [phone] AV mn grad 4 mmHg [facility] Work Phone: [phone] AV pk grad 9 mmHg [facility] Work Phone: [phone] AV pk sedrick 1.47 m/s [facility] Work Phone: [phone] LV A4C EF 71.4 [facility] Work Phone: [phone] LV Biplane EF 68 % [facility] Work Phone: [phone] LV EF 63 % [facility] Work Phone: [phone] LVIDd 5.09 cm [facility] Work Phone: [phone] LVOT diam 2.5 cm [facility] Work Phone: [phone] MV avg E/e' ratio 6.[address] [facility] Work Phone: [phone] MV E/A ratio 0.57 [facility] Work Phone: [phone] RVSP 30.2 mmHg [facility] Work Phone: [phone] [facility] Work Phone: Heart Transthoracicon [address], [address] [place] [address] TRANSTHORACIC ECHOCARDIOGRAM REPORT Patient Name: MARY Ahn Physician: [id number] Rolly Michaels MD, FAC Study Date: 06/09/2024 Ordering Provider: [id number] CADY SANTOSN/PID: [id number] Fellow: Nurse: Date of /Age: 8 1950 / 74 years Box Truck Washer: Alyse Arriaga RDCS, RVT Gender Assigned at M Additional Staff: : Height: 182.88 cm Admit Date: Weight: 86.64 kg Admission Status: BSA / BMI: 2.09 m2 / 25.90 Department Location: [facility] kg/m2 [facility] [place] Blood Pressure: 162 /82 mmHg Study Type: TRANSTHORACIC ECHO (TTE) COMPLETE Diagnosis/ICD: Shortness of breath-R06.02 Indication: HTN, Hyperlipidemia, Former Smoker, Asymetrical Upper Extremity Blood Pressures, History of Bladder and Prostate Cancer CPT Codes: Echo Complete w Full Doppler-[id number] Study Detail: The following Echo studies were performed: 2D, M-Mode, Doppler and color flow. PHYSICIAN INTERPRETATION: Left Ventricle: Left ventricular ejection fraction is normal, by visual estimate at 60-65%. There are no regional wall motion abnormalities. The left ventricular cavity size is normal. There is mild increased septal and normal posterior left ventricular wall thickness. Spectral Doppler shows a Grade I (impaired relaxation pattern) of left ventricular diastolic filling with normal left atrial filling pressure. Left Atrium: The left atrium is normal in size. Right Ventricle: The right ventricle is normal in size. There is normal right ventricular global systolic function. Right Atrium: The right atrium is normal in size. Aortic Valve: The aortic valve is trileaflet. The aortic valve dimensionless index is 0.76. There is trace aortic valve regurgitation. The peak instantaneous gradient of the aortic valve is 9 mmHg. The mean gradient of the aortic valve is 4 mmHg. Mitral Valve: The mitral valve is normal in structure. The peak instantaneous gradient of the mitral valve is 4 mmHg. There is trace mitral valve regurgitation. Tricuspid Valve: The tricuspid valve is structurally normal. There is trace tricuspid regurgitation. Pulmonic Valve: The pulmonic valve is structurally normal. There is no indication of pulmonic valve regurgitation. Pericardium: No pericardial effusion noted. Aorta: The aortic root is normal. Pulmonary Artery: The Doppler estimated pulmonary artery diastolic pressure is 20.1 mmHg. Systemic Veins: The inferior vena cava appears normal in size. In comparison to the previous echocardiogram(s): No previous studies are available for comparison. CONCLUSIONS: 1. Left ventricular ejection fraction is normal, by visual estimate at 60-65%. 2. Spectral Doppler shows a Grade I (impaired relaxation pattern) of left ventricular diastolic filling with normal left atrial filling pressure. 3. There is normal right ventricular global systolic function. 4. No previous studies are available for comparison. QUANTITATIVE DATA SUMMARY: 2D MEASUREMENTS: Normal Ranges: Ao Root d: 3.30 cm (2.0-3.7cm) LAs: 3.50 cm (2.7-4.0cm) RVIDd: 3.50 cm (0.9-3.6cm) IVSd: 1.25 cm (0.6-1.1cm) LVPWd: 0.85 cm (0.6-1.1cm) LVIDd: 5.09 cm (3.9-5.9cm) LVIDs: 3.22 cm LV Mass Index: 95.9 g/m2 LV % FS 36.7 % LV SYSTOLIC FUNCTION BY 2D PLANIMETRY (MOD): Normal Ranges: EF-A4C View: 71 % (>=55%) EF-A2C View: 67 % EF-Biplane: 68 % EF-Visual: 63 % LV EF Reported: 63 % LV DIASTOLIC FUNCTION: Normal Ranges: MV Peak E: 0.52 m/s (0.7-1.2 m/s) MV Peak A: 0.92 m/s (0.42-0.7 m/s) E/A Ratio: 0.57 (1.0-2.2) MV e' 0.073 m/s (>8.0) MV lateral e' 0.08 m/s MV medial e' 0.06 m/s E/e' Ratio: 7.20 (<8.0) MITRAL VALVE: Normal Ranges: MV Vmax: 0.95 m/s (<=1.3m/s) MV peak P.6 mmHg (<5mmHg) MV mean P.0 mmHg (<48mmHg) MITRAL INSUFFICIENCY: Normal Ranges: MR Vmax: 460.00 cm/s AORTIC VALVE: Normal Ranges: AoV Vmax: 1.47 m/s (<=1.7m/s) AoV Peak P.6 mmHg (<20mmHg) AoV Mean P.0 mmHg (1.7- (more content not included)... Rolly Lerner MD - 06/09/2024 [facility] [address] [place] [address], [address], [place] [address] TRANSTHORACIC ECHOCARDIOGRAM REPORT Patient Name: MARY DIAZ Reading Physician: [id number] Rolly Michaels MD, [facility] Study Date: 06/09/2024 Ordering Provider: [id number] CADY ESPINOSA MRN/PID: [id number] Fellow: Nurse: Date of /Age: 8 1950 / 74 years Box Truck Washer: Alyse Arriaga RDCS, T Gender Assigned at Additional Staff: : Height: 182.88 cm Admit Date: Weight: 86.64 kg Admission Status: BSA / BMI: 2.09 m2 / 25.90 Department Location: [facility] kg/m2 [facility] [place] Blood Pressure: 162 /82 mmHg Study Type: TRANSTHORACIC ECHO (TTE) COMPLETE Diagnosis/ICD: Shortness of breath-R06.02 Indication: HTN, Hyperlipidemia, Former Smoker, Asymetrical Upper Extremity Blood Pressures, History of Bladder and Prostate Cancer CPT Codes: Echo Complete w Full Doppler-[id number] Study Detail: The following Echo studies were performed: 2D, M-Mode, Doppler and color flow. PHYSICIAN INTERPRETATION: Left Ventricle: Left ventricular ejection fraction is normal, by visual estimate at 60-65%. There are no regional wall motion abnormalities. The left ventricular cavity size is normal. There is mild increased septal and normal posterior left ventricular wall thickness. Spectral Doppler shows a Grade I (impaired relaxation pattern) of left ventricular diastolic filling with normal left atrial filling pressure. Left Atrium: The left atrium is normal in size. Right Ventricle: The right ventricle is normal in size. There is normal right ventricular global systolic function. Right Atrium: The right atrium is normal in size. Aortic Valve: The aortic valve is trileaflet. The aortic valve dimensionless index is 0.76. There is trace aortic valve regurgitation. The peak instantaneous gradient of the aortic valve is 9 mmHg. The mean gradient of the aortic valve is 4 mmHg. Mitral Valve: The mitral valve is normal in structure. The peak instantaneous gradient of the mitral valve is 4 mmHg. There is trace mitral valve regurgitation. Tricuspid Valve: The tricuspid valve is structurally normal. There is trace tricuspid regurgitation. Pulmonic Valve: The pulmonic valve is structurally normal. There is no indication of pulmonic valve regurgitation. Pericardium: No pericardial effusion noted. Aorta: The aortic root is normal. Pulmonary Artery: The Doppler estimated pulmonary artery diastolic pressure is 20.1 mmHg. Systemic Veins: The inferior vena cava appears normal in size. In comparison to the previous echocardiogram(s): No previous studies are available for comparison. CONCLUSIONS: 1. Left ventricular ejection fraction is normal, by visual estimate at 60-65%. 2. Spectral Doppler shows a Grade I (impaired relaxation pattern) of left ventricular diastolic filling with normal left atrial filling pressure. 3. There is normal right ventricular global systolic function. 4. No previous studies are available for comparison. QUANTITATIVE DATA SUMMARY: 2D MEASUREMENTS: Normal Ranges: Ao Root d: 3.30 cm (2.0-3.7cm) LAs: 3.50 cm (2.7-4.0cm) RVIDd: 3.50 cm (0.9-3.6cm) IVSd: 1.25 cm (0.6-1.1cm) LVPWd: 0.85 cm (0.6-1.1cm) LVIDd: 5.09 cm (3.9-5.9cm) LVIDs: 3.22 cm LV Mass Index: 95.9 g/m2 LV % FS 36.7 % LV SYSTOLIC FUNCTION BY 2D PLANIMETRY (MOD): Normal Ranges: EF-A4C View: 71 % (>=55%) EF-A2C View: 67 % EF-Biplane: 68 % EF-Visual: 63 % LV EF Reported: 63 % LV DIASTOLIC FUNCTION: Normal Ranges: MV Peak E: 0.52 m/s (0.7-1.2 m/s) MV Peak A: 0.92 m/s (0.42-0.7 m/s) E/A Ratio: 0.57 (1.0-2.2) MV e' 0.073 m/s (>8.0) MV lateral e' 0.08 m/s MV medial e' 0.06 m/s E/e' Ratio: 7.20 (<8.0) MITRAL VALVE: Normal Ranges: MV Vmax: 0.95 m/s (<=1.3m/s) MV peak P.6 mmHg (<5mmHg) MV mean P.0 mmHg (<48mmHg) MITRAL INSUFFICIENCY: Normal Ranges: MR Vmax: 460.00 cm/s AORTIC VALVE: Normal Ranges: AoV Vmax: 1.47 m/s (<=1.7m/s) AoV Peak P.6 mmHg (<20mmHg) AoV Mean P.0 mmHg (1.7-11.5mmHg) LVOT Max Sedrick: 0.89 m/s (<=1.1m/s) AoV VTI: 27.70 cm (18-25cm) LVOT VTI: 21.00 cm LVOT Diameter: 2.50 cm (1.8-2.4cm) AoV Area, VTI: 3.72 cm2 (2.5-5.5cm2) AoV Area,Vmax: 2.99 cm2 (2.5-4.5cm2) AoV Dimensionless Index: 0.76 AORTIC INSUFFICIENCY: AI Vmax: 3.53 m/s AI Half-time: 406 msec AI Decel Rate: 517.50 cm/s2 TRICUSPID VALVE/RVSP: Normal Ranges: Peak TR Velocity: 2.61 m/s RV Syst Pressure: 30 mmHg (< 30mmHg) PULMONIC VALVE: Normal Ranges: PV Max Serdick: 0.8 m/s (0.6-0.9m/s) PV Max P.3 mmHg PIEDV: 2.07 m/s PADP: 20.1 mmHg [id number] Rolly Michaels MD, [facility] Electronically signed on 06/09/2024 at 4:40:40 PM Final [facility] Work Phone: US.doppler Carotid arteries - bilateralon 06-09-[address], [address] [place] [address] Vascular Lab Report [facility] US CAROTID ARTERY DUPLEX BILATERAL Patient Name: MARY Ahn Physician: [id number] Rolly Michaels MD, FACC Study Date: 06/09/2024 Ordering Provider: [id number] CADY ESPINOSA MRN/PID: [id number] Fellow: Technologist: Alyse Arriaga RD, T Date of /Age: 8 1950 / 74 years Technologist 2: Gender: M Admission Status: Outpatient Location Performed: [facility] Diagnosis/ICD: Other specified symptoms and signs involving the circulatory and respiratory systems-R09.89 Indication: Unequal Upper Extremity Blood Pressures, HTN, Hyperlipidemia, Former Smoker, History of Bladder and Prostate Cancer CPT Codes: 08482 Cerebrovascular Carotid Duplex scan complete CONCLUSIONS: Right Carotid: Findings are consistent with 50 to 69% stenosis of the right proximal internal carotid artery. Laminar flow seen by color Doppler. There are elevated velocities in the right ECA that are suggestive of disease. No evidence of hemodynamically significant stenosis of the right common carotid artery. The right vertebral artery is patent with antegrade flow. Left Carotid: Findings are consistent with 50 to 69% stenosis of the left proximal internal carotid artery. Laminar flow seen by color Doppler. Left external carotid artery appears patent with no evidence of stenosis. No evidence of hemodynamically significant stenosis of the left common carotid artery. The left vertebral artery is patent with antegrade flow. Imaging & Doppler Findings: Right Plaque Morph: The proximal right internal carotid artery demonstrates irregular and calcified plaque. The proximal right external carotid artery demonstrates irregular plaque. The distal right common carotid artery demonstrates calcified plaque. Left Plaque Morph: The proximal left internal carotid artery demonstrates heterogenous, irregular and calcified plaque. The mid left internal carotid artery demonstrates irregular and calcified plaque. The proximal left external carotid artery demonstrates irregular and calcified plaque. The distal left common carotid artery demonstrates calcified, irregular and heterogenous plaque. Right Left PSV EDV PSV EDV 105 cm/s 17 cm/s CCA P 113 cm/s 17 cm/s 141 cm/s 25 cm/s CCA M 135 cm/s 26 cm/s 92 cm/s 16 cm/s CCA D 112 cm/s 17 cm/s 140 cm/s 28 cm/s ICA P 82 cm/s 13 cm/s 134 cm/s 31 cm/s ICA M 125 cm/s 33 cm/s 87 cm/s 26 cm/s ICA D 97 cm/s 23 cm/s 130 cm/s ECA 103 cm/s 66 cm/s Vertebral 31 cm/s Right Left ICA/CCA Ratio 1.5 0.7 [id number] Rolly Michaels MD, FACC Final Rolly Lerner MD - 06/09/[address], [address], [place] [address] Vascular Lab Report [facility] US CAROTID ARTERY DUPLEX BILATERAL Patient Name: MARY Rogers EMILY Reading Physician: [id number] Rolly Michaels MD, [facility] Study Date: 06/09/2024 Ordering Provider: [id number] CADY ESPINOSA MRN/PID: [id number] Fellow: Technologist: Alyse Arriaga [facility], T Date of /Age: 8 1950 / 74 years Technologist 2: Gender: M Admission Status: Outpatient Location Performed: [facility] Diagnosis/ICD: Other specified symptoms and signs involving the circulatory and respiratory systems-R09.89 Indication: Unequal Upper Extremity Blood Pressures, HTN, Hyperlipidemia, Former Smoker, History of Bladder and Prostate Cancer CPT Codes: 98669 Cerebrovascular Carotid Duplex scan complete CONCLUSIONS: Right Carotid: Findings are consistent with 50 to 69% stenosis of the right proximal internal carotid artery. Laminar flow seen by color Doppler. There are elevated velocities in the right ECA that are suggestive of disease. No evidence of hemodynamically significant stenosis of the right common carotid artery. The right vertebral artery is patent with antegrade flow. Left Carotid: Findings are consistent with 50 to 69% stenosis of the left proximal internal carotid artery. Laminar flow seen by color Doppler. Left external carotid artery appears patent with no evidence of stenosis. No evidence of hemodynamically significant stenosis of the left common carotid artery. The left vertebral artery is patent with antegrade flow. Imaging & Doppler Findings: Right Plaque Morph: The proximal right internal carotid artery demonstrates irregular and calcified plaque. The proximal right external carotid artery demonstrates irregular plaque. The distal right common carotid artery demonstrates calcified plaque. Left Plaque Morph: The proximal left internal carotid artery demonstrates heterogenous, irregular and calcified plaque. The mid left internal carotid artery demonstrates irregular and calcified plaque. The proximal left external carotid artery demonstrates irregular and calcified plaque. The distal left common carotid artery demonstrates calcified, irregular and heterogenous plaque. Right Left PSV EDV PSV EDV 105 cm/s 17 cm/s CCA P 113 cm/s 17 cm/s 141 cm/s 25 cm/s CCA M 135 cm/s 26 cm/s 92 cm/s 16 cm/s CCA D 112 cm/s 17 cm/s 140 cm/s 28 cm/s ICA P 82 cm/s 13 cm/s 134 cm/s 31 cm/s ICA M 125 cm/s 33 cm/s 87 cm/s 26 cm/s ICA D 97 cm/s 23 cm/s 130 cm/s ECA 103 cm/s 66 cm/s Vertebral 31 cm/s Right Left ICA/CCA Ratio 1.5 0.7 [id number] Rolly Michaels MD, [facility] Final [facility] Work Phone: Radiology Study observation (narrative) [facility] Work Phone: US.doppler Carotid arteries - bilateralOrdered By: Rolly Michaels on 06-09-2024 [facility] Work Phone: [facility] US CAROTID ARTERY DUPLE X BILATERALon 06-09-2024 VAS US CAROTID ARTERY DUPLEX BILATERAL [address], [address] [place] [address] Vascular Lab Report [facility] US CAROTID ARTERY DUPLEX BILATERAL Patient Name: MARY DIAZ Reading Physician: [id number] Rolly Michaels MD, FAC Study Date: 06/09/2024 Ordering Provider: [id number] CADY ESPINOSA MRN/PID: [id number] Fellow: Technologist: Alyse Arriaga RDCS, T Date of /Age: 8 1950 / 74 years Technologist 2: Gender: M Admission Status: Outpatient Location Performed: [facility] Diagnosis/ICD: Other specified symptoms and signs involving the circulatory and respiratory systems-R09.89 Indication: Unequal Upper Extremity Blood Pressures, HTN, Hyperlipidemia, Former Smoker, History of Bladder and Prostate Cancer CPT Codes: 28598 Cerebrovascular Carotid Duplex scan complete CONCLUSIONS: Right Carotid: Findings are consistent with 50 to 69% stenosis of the right proximal internal carotid artery. Laminar flow seen by color Doppler. There are elevated velocities in the right ECA that are suggestive of disease. No evidence of hemodynamically significant stenosis of the right common carotid artery. The right vertebral artery is patent with antegrade flow. Left Carotid: Findings are consistent with 50 to 69% stenosis of the left proximal internal carotid artery. Laminar flow seen by color Doppler. Left external carotid artery appears patent with no evidence of stenosis. No evidence of hemodynamically significant stenosis of the left common carotid artery. The left vertebral artery is patent with antegrade flow. Imaging & Doppler Findings: Right Plaque Morph: The proximal right internal carotid artery demonstrates irregular and calcified plaque. The proximal right external carotid artery demonstrates irregular plaque. The distal right common carotid artery demonstrates calcified plaque. Left Plaque Morph: The proximal left internal carotid artery demonstrates heterogenous, irregular and calcified plaque. The mid left internal carotid artery demonstrates irregular and calcified plaque. The proximal left external carotid artery demonstrates irregular and calcified plaque. The distal left common carotid artery demonstrates calcified, irregular and heterogenous plaque. Right Left PSV EDV PSV EDV 105 cm/s 17 cm/s CCA P 113 cm/s 17 cm/s 141 cm/s 25 cm/s CCA M 135 cm/s 26 cm/s 92 cm/s 16 cm/s CCA D 112 cm/s 17 cm/s 140 cm/s 28 cm/s ICA P 82 cm/s 13 cm/s 134 cm/s 31 cm/s ICA M 125 cm/s 33 cm/s 87 cm/s 26 cm/s ICA D 97 cm/s 23 cm/s 130 cm/s ECA 103 cm/s 66 cm/s Vertebral 31 cm/s Right Left ICA/CCA Ratio 1.5 0.7 [id number] Rolly Michaels MD, FACC Final [facility] Urine Cytology ([facility])on 07-30-2023 Microscopic exam Cytology (U) [Interp] Diagnosis Info Invalid Interpretation Code [facility] Comment on above: Result Comment: A:Ur ine,Urine:Voided Interpretation - Occasional atypical urothelial cells with degenerative changes. CPT 99053 MicroScopic Description - Adequacy - Gross Description Site ID:A color Yellow fixative Alcohol Specimen designated Urine received in alcohol preservative and labeled with the patient???s name, consists of 40ml clear yellow fluid. Electronically signed by : on: 05/29/2024 13:16:19 Performed By: #### 1 [id number] #### [facility] Laboratory [address] [place] [address] Urine Cytology ([facility])on 07-23-2023 UC Method of Extraction Voided Normal [facility] Comment on above: Performed By: #### 1 [id number] #### [facility] Laboratory [address] [place] [address] UC Number of Jars 1 Invalid Interpretation Code [facility] Comment on above: Performed By: #### 1 [id number] #### [facility] Laboratory [address] [place] [address] UC Specimen Urine Normal [facility] Comment on above: Performed By: #### 1 [id number] #### [facility] Laboratory [address] [place] [address] UC Type of Service Technical Only Normal [facility] Comment on above: Performed By: #### 1 [id number] #### [facility] Laboratory [address] [place] [address] UroVysion Fish and Urine Cyt o ([facility])on 05-15-2024 UVFISH & UC Diagnosis Info Invalid Interpretation Code [facility] Comment on above: Result Comment: Rodrick s Description Electronically signed by : on: 05/15/2024 11:58:17 Performed By: #### 1 [id number] #### [facility] Laboratory [address] [place] [address] Main OR Intraoperative Recor don 05-09-2024 Main OR Intraoperative Record Main OR Intraoperative Record IntraOp Document Type FTURO Summary Primary Physician: Lionel WHITNEY MD Finalized Date/Time: 05/09/24 09:43:24 Pt. Name: EMILY MARY Verma/Sex: 1950 Male Med Rec #: [id number] Physician: Lionel WHITNEY MD Financial #: [id number] Pt. Type: O Room/Bed: / Admit/Disch: 05/09/24 [...] Nanci Bellamy Role Performed Surgeon - Primary E Commerce Solution Architect - Primary Scrub - Primary Time In 05/09/24 09:33:00 05/09/24 09:25:00 05/09/24 09:25:00 Time Out 05/09/24 09:42:00 05/09/24 09:42:00 05/09/24 09:42:00 Procedure CYSTOSCOPY LOCAL(.) CYSTOSCOPY LOCAL(.) CYSTOSCOPY LOCAL(.) Comments Last Modified By: Fitz ZELAYA, Frances Byrnes RN, Frances Byrnes RN, Frances Bellamy 05/09/24 Carol Bellamy 05/09/24 Carol Bellamy 05/09/24 09:40:33 09:40:33 09:40:33 Surgical Procedures FTURO [...] DEVONTE NOBLE, Lionel Burgos, Verified (If Participants Frances Byrnes RN Applicable) Safia Bolton CST, Nanci Baxter Time Out Complete 05/09/24 09:33:00 Allergies Reviewed? [...] RN 05/09/24 09:38:20 Case Comments Finalized By: Byrnes RN, Frances Carol P Document Signatures Signed By: Frances Byrnes RN 05/09/24 09:[address] [facility] Main OR Preoperative Recordo n 05-09-2024 Main OR Preoperative Record Main OR Preoperative Record Holding Area Document Type FTURO Summary Primary Physician: Lionel WHITNEY MD Finalized Date/Time: 05/09/24 09:28:03 Pt. Name: MARY DIAZ /Sex: 1950 Male Med Rec #: [id number] Physician: Lionel WHITNEY MD Financial #: [id number] Pt. Type: O Room/Bed: / Admit/Disch: 05/09/24 [...] Complaints of Pain: No Skin Integrity Intact, [place], Warm, & Dry Vitals - EU Blood Pressure 190/90 Pulse 78 bpm Respirations 18 br/min SPO2 96 % Additional JIM ZELAYA Reviewed Yes Specimens Collected Last Modified By: Frances Byrnes RN 05/09/24 09:28:01 Finalized By: Frances Byrnes RN Document Signatures Signed By: Esther Boyd LPN 05/09/24 09:10 Frances Byrnes RN 05/09/24 09:[address] [facility] Operative Reporton Operative Report Operative Report [...] with antibiotic coverage, Follow up arranged. Normal [facility] Comment on above: Result Comment: Elec tronically Signed By: Lionel WHITNEY MD\.br\Date and Time Signed: 05/09/24 09:48 EST UroVysion Fish and Urine Cyt o ([facility])on 05-09-2024 [facility] Method of Extraction Voided Normal [facility] Comment on above: Performed By: #### 1 [id number] #### [facility] Laboratory [address] [place] [address] [facility] Number of Jars 1 Invalid Interpretation Code [facility] Comment on above: Performed By: #### 1 [id number] #### [facility] Laboratory [address] [place] [address] [facility] Specimen Urine Normal [facility] Comment on above: Performed By: #### 1 [id number] #### [facility] [address] [place] [address] [facility] Type of Service Technical Only Normal [facility] Comment on above: Performed By: #### 1 [id number] #### [facility] Laboratory [address] [place] [address] ECG 12 Leadon 05-08-2024 [facility] Work Phone: Reminderson 04-13-2024 Reminders Reminders - From: Loretta Simons To: EU - Recalls Whitney; Sent: 04/13/2024 11:42:40 EDT Show up: 08/19/2024 11:42:00 EST Subject: Cysto/Needs FISH/cytol Due Date/Time: 09/11/2024 11:42:00 EDT Reminder/Recall Patient is due in October 2024 for 6 month cysto/fish/cytol, bt ck Normal [facility] Reminders Reminders - From: Loretta Simons To: EU - Recalls Whitney; Cc: Loretta Simons; Sent: 06/28/2023 10:52:09 EST Show up: 09/20/2023 10:52:00 EDT Subject: Cysto/6 mo Due Date/Time: 10/11/2023 10:52:00 EDT Reminder/Recall Patient is due in October 2023 for 6 month cysto/fish/cytol, PSA (bt ck) Spoke to pt, sched for 10/26/23 at [facility]. LG Patient will be due in Apr 2024 for 6 month cysto/fish/cytol (bt ck) Spoke to pt, sched for 05/09/24 at [facility].LG Normal [facility] Patient Educationon 11-26-19 Patient Education Urology [...] including vitamins, herbs, eye drops, creams, and mcyx-mzp-rdjwufl medicines. ? Any problems you or family [...] tells you to take them. ? Taking izru-ukl-lcfnfht medicines, vitamins, herbs, and supplements. General instructions [...] health c (more content not included)... Normal [facility] UroVysion Fish and Urine Cyt o ([facility])on 11-02-2023 [facility] & UC Diagnosis Info Invalid Interpretation Code [facility] Comment on above: Result Comment: A:Ur [...] on: 11/02/2023 10:22:27 Performed By: #### 1 [id number] ####[facility] [address] [place] [address] Consent for Procedure/Surger yon 10-26-2023 Consent for Procedure/Surgery [id number] 2#1.00TIFF Normal [facility] Consent for Treatmenton 05- Consent for Treatment [id number] #1.00TIFF Normal [facility] IntraOperative Documentson 0 10-26-2023 IntraOperative Documents [id number] 2#1.00TIFF [facility] Main OR Intraoperative Recor don 10-26-2023 Main OR Intraoperative Record IntraOp Document Type FTURO Summary Primary Physician: Lionel WHITNEY MD Finalized Date/Time: 10/26/23 11:57:52 Pt. Name: MARY DIAZ/Sex: 1950 Male Med Rec #: [id number] Physician: Lionel WHITNEY MD Financial #: [id number] Pt. Type: O Room/Bed: / Admit/Disch: 10/26/23 09:34:20 - Institution: Case Times FTURO Entry 1 Patient Times In Room 10/26/23 11:49:00 Out Room 10/26/23 11:57:00 Procedure Times Start 10/26/23 11:51:00 Stop 10/26/23 11:55:00 Anesthesia Times Last Modified By: Fabiana Galaviz 10/26/23 11:57:45 Case Attendance FTURO Entry 1 Entry 2 Entry 3 Case Attendee DEVONTE NOBLE, Fabiana Valentine CST, Kimberly A Role Performed Surgeon - Primary E Commerce Solution Architect - Primary Scrub - Primary Time In [...] Procedure Yes Primary Surgeon Lionel WHITNEY MD 10/26/23 11:51:00 Stop 10/26/23 11:55:00 Anesthesia Type [...] Prep Agents Betadine Solution Skin. Condition Intact, [place], Warm, and Description REDDED DOTS ON Dry, [...] Galaviz 10/26/23 11:57 Fabiana Galaviz 10/26/23 11:57 [facility] Main OR Preoperative Recordo n 10-26-2023 Main OR Preoperative Record Holding Area Document Type FTURO Summary Primary Physician: Lionel WHITNEY MD Finalized Date/Time: 10/26/23 11:16:48 Pt. Name: MARY DIAZ /Sex: 1950 Male Med Rec #: [id number] Physician: Lionel WHITNEY MD Financial #: [id number] Pt. Type: O Room/Bed: / Admit/Disch: 10/26/23 [...] 11:11 Nanci Cortes RN 10/26/23 11:[address] [facility] Operative Reporton 4 Operative Report Patient: MARY DIAZ Age: 73 [...] with antibiotic coverage, Follow up arranged. Normal [facility] Comment on above: Result Comment: Elec tronically Signed By: Lionel WHITNEY MD\.br\Date and Time Signed: 10/26/23 11:58 EDT Outpatient Surgery Discharge Instructionon 10-26-2023 Outpatient Surgery Discharge Instruction [id number] 2#1.00TIFF Normal [facility] UroVysion Fish and Urine Cyt o ([facility])on 10-26-2023 [facility] Method of Extraction Voided Normal [facility] Comment on above: Performed By: #### 1 [id number] ####[facility] [address] [place] [address] [facility] Number of Jars 1 Invalid Interpretation Code [facility] Comment on above: Performed By: #### 1 [id number] ####[facility] [address] [place] [address] [facility] Specimen Urine Normal [facility] Comment on above: Performed By: #### 1 [id number] ####[facility] [address] [place] [address] [facility] Type of Service Technical Only Normal [facility] Comment on above: Performed By: #### 1 [id number] ####[facility] [address] [place] [address] Ambulatory Visit Summaryon 0 10-04-2023 Ambulatory Visit Summary MARY DIAZ :1950 Visit Date:10/04/2023 Ambulatory Visit Instructions Your Diagnosis History of prostate cancer Personal history of bladder cancer History of kidney stones Impotence Your Care Team Attending Physician - DEVONTE NOBLE, Lionel Burgos Primary Care Physician - Kriss NOBLE, Yolande This Is Your Medications List sildenafil (sildenafil [...] Wednesday. 2023 12:00 PM EDT With: Where: [facility] Wednesday 10:00 AM EDT With: Where: [facility] Wednesday 10:15 AM EDT With: Lionel WHITNEY MD Where: [facility] Patient Educationon 10-04-19 24 Patient Education Oncology [...] if anything looks unusual. Men with a pvqaid-xweg-hrypiy risk for skin cancer may want to see a hiv prevention specialist (wet end tester) for an annual body check. What are the benefits of screening? Cancer screening is done to look for cancer in the very early stages, before it spreads and becomes harder to treat and before you would start to notice symptoms. Finding cancer early improves the chances of successful treatment. It ma (more content not included)... Normal [facility] Urology Office/Clinic Noteon 10-04-2023 Urology Office/Clinic [...] [facility] [address] [place] [address]- [phone] Additional Instructions: 1 yr w/ PSA Patient [...] inhalation po (more content not included)... Normal [facility] Comment on above: Result Comment: Elec tronically Signed By: Lionel WHITNEY MD\.br\Date and Time Signed: 10/04/23 11:16 EDT\.br\Electronically Co-Signed By: Lilo Zhou.br\Date and Time Co-Signed: 10/04/23 11:14 EDT Lab Reportson 09-22-2023 Lab Reports [id number] #1.00TIFF Normal [facility] MR cervical spine wo/w conon 08-29-2023 MR cervical spine wo/w con [facility] Main [place] [address] [place] [address] MRI Report Signed Patient: Mary Diaz MR#: [id number] : 1950 Acct:[id number] Age/Sex: 73 / M ADM Date: 08/28/23 Loc: MR Room: Type: [facility] Attending Dr: Esther HILTON Copies to: [...] Lupe Campos M.D.08/29/2023 1:06 PM Dictation Location: [place] [address] Transcribed By: [facility] 08/29/23 1306 Dictated By: Lupe Campos MD 08/29/23 1254 Signed By: 08/29/[address] [facility] Creatinine (Bld) [Mass/Vol]O rdered By: Esther Lowery on 08-28-2023 Creatinine [Mass/Vol] 1.2 mg/dL 0.6-1.3 [facility] Comment on above: ER/ESD physician is notified/shown all ISTAT results.Critical values may be confirmed by laboratory testing ifdeemed necessary by ER attending doctor. ISTAT XRay CREon 08-28-2023 Creatinine [Mass/Vol] 1.2 mg/dL Normal 0.6-1.3 [facility] Comment on above: Result Comment: ER/E SD physician is notified/shown all ISTAT results. Critical values may be confirmed by laboratory testing if deemed necessary by ER attending doctor. Performed By: #### I SCRE #### [address] ISTAT GFR > 60.0 [facility] Comment on above: Result Comment: PERF ORMED BY: [place] [address] PATHOLOGIST JANITOR HEAD JIANLAN SUN M.D. Performed By: #### I SCRE #### [address] No Panel InformationOrdered By: Esther Lowery on 08-28-2023 Bedside Estimated GFR (eGFR) > 60.0 [facility] XR cervical spine LAT/FLX/EX Ton 08-12-2023 XR cervical spine LAT/FLX/EXT [facility] [place] [address] XRay Report Signed Patient: Mary Diaz MR#: [id number] : 1950 Acct:[id number] Age/Sex: 73 / M ADM Date: 08/12/23 Loc: XD Room: Type: [facility] [facility] Attending Dr: Esther Lowery NP-C Copies to: LIDA Fylnn Ordering Provider: LIDA Flynn Date of Service: [...] Kenny Leahy M.D.08/12/2023 3:29 PM Dictation Location: [place] [address] Transcribed By: [facility] 08/12/23 1529 Dictated By: Kenny Leahy DO 08/12/23 1528 Signed By: 08/12/23 1529 Normal [facility] XR lumbar spine 6V w bending on 08-12-2023 XR lumbar spine 6V w bending [facility] [place] [address] XRay Report Signed Patient: Mary Diaz MR#: [id number] : 1950 Acct:[id number] Age/Sex: 73 / M ADM Date: 08/12/23 Loc: XD Room: Type: [facility] CLI Attending Dr: Esther BASILIOC Copies to: LIDA [...] Kenny Leahy M.D.08/12/2023 3:28 PM Dictation Location: [place] [address] Transcribed By: [facility] 08/12/23 1528 Dictated By: Kenny Leahy DO 08/12/23 1526 Signed By: 08/12/23 [facility] MR lumbar spine wo conon MR lumbar spine wo [facility] [place] [address] [place] [id number] MRI Report Signed Patient: Mary Diaz MR#: [id number] : 1950 Acct:[id number] Age/Sex: 72 / M ADM Date: 01/01/23 Loc: MR Room: Type: [facility] CLI Attending Dr: Zoran Chavez MD Copies to: [...] Jamaica Alas M.D.01/01/2023 2:48 PM Dictation Location: [place] [address] Transcribed By: [facility] 01/01/23 1448 Dictated By: Jamaica Alas II, MD 01/01/23 144 Signed By: 01/01/23 1448 Normal [facility] XR CSPINE MIN 4 VIEWSon 05 XR CSPINE MIN 4 VIEWS EXAMINATION: XR [...] Date: 2022-10-23 11:53 Normal [facility] XR LSPINE W_OBLS AND FLEX_EX [...] by: JAMAICA GONZALEZ Date: 2022-10-23 13:18 Normal [facility] BNPon 10-06-2022 Natriuretic peptide B (Bld) [Mass/Vol] 844.0 pg/mL Normal <=900.0 [facility] Comment on above: Performed By: #### C [facility] #### [facility] [address] [address] [address] Johnna Dxion CBC AUTO DIFFon 10-06-2022 BASO # 0.0 103/ul Normal 0.0-0.1 [facility] Comment on above: Performed By: #### C BC #### [facility] [address] [place] [address] Dr. Johnna Dixon Basophils/100 WBC (Bld) 0.0 % Critically low 0.2-2.0 [facility] Comment on above: Performed By: #### C BC #### [facility] [address] [place] [address] Dr. Johnna Dixon EO # 0.0 103/ul Normal 0.0-0.7 [facility] Comment on above: Performed By: #### C BC #### [facility] [address] [place] [address] Dr. Johnna Dixon Eosinophils/100 WBC (Bld) 0.0 % Critically low 0.9-7.0 [facility] Comment on above: Performed By: #### C BC #### [facility] [address] [place] [address] Dr. Johnna Dixon Erythrocyte distribution width (RBC) [Ratio] 13.9 % Normal 11.0-15.0 [facility] Comment on above: Performed By: #### C BC #### [facility] [address] [place] [address] Dr. Johnna Dixon Hematocrit (Bld) [Volume fraction] 33.6 % Critically low 42.0-54.0 [facility] Comment on above: Performed By: #### C BC #### [facility] [address] [place] [address] Dr. Johnna Dixon Hemoglobin (Bld) [Mass/Vol] 11.1 g/dL Critically low 14.0-18.0 [facility] Comment on above: Performed By: #### C BC #### [facility] [address] [place] [address] Dr. Johnna Dixon IG # 0.03 10e3/ul Normal 0.00-0.03 [facility] Comment on above: Performed By: #### C BC #### [facility] [address] [place] [address] Dr. Johnna Dixon IG % 0.5 % Normal 0.0-0.5 [facility] Comment on above: Performed By: #### C BC #### [facility] [address] [place] [address] [address] Johnna Dixon LYMPH # 0.7 103/ul Critically low 1.2-3.8 [facility] Comment on above: Performed By: #### C BC #### [facility] [address] [place] [address] Dr. Johnna Dixon Lymphocytes/100 WBC (Bld) 11.5 % Critically low 20.5-60.0 [facility] Comment on above: Performed By: #### C BC #### [facility] [address] [place] [address] Dr. Johnna Dixon MANUAL DIFF REQ NO Normal [facility] Comment on above: Performed By: #### C BC #### [facility] [address] [place] [address] Dr. Johnna Dixon MCH (RBC) [Entitic mass] 31.0 pg Normal 25.9-34.0 [facility] Comment on above: Performed By: #### C BC #### [facility] [address] [place] [address] Dr. Johnna Dixon MCHC (RBC) [Mass/Vol] 33.0 g/dL Normal 29.9-35.2 [facility] Comment on above: Performed By: #### C BC #### [facility] [address] [place] [address] Dr. Johnna Dixon MCV (RBC) [Entitic vol] 93.9 fL Normal 80.0-94.0 [facility] Comment on above: Performed By: #### C BC #### [facility] [address] [place] [address] Dr. Johnna Dixon MONO # 0.3 103/ul Normal 0.3-0.8 [facility] Comment on above: Performed By: #### C BC #### [facility] [address] [place] [address] [address] Johnna Dixon Monocytes/100 WBC (Bld) 4.5 % Normal 1.7-12.0 [facility] Comment on above: Performed By: #### C BC #### [facility] [address] [place] [address] [address] Johnna Dixon NEUT # 5.0 103/ul Normal 1.4-6.5 [facility] Comment on above: Performed By: #### C BC #### [facility] [address] [place] [address] [address] Johnna Dixon Neutrophils/100 WBC (Bld) 83.5 % Critically high 43.0-75.0 [facility] Comment on above: Performed By: #### C BC #### [facility] [address] [place] [address] Dr. Johnna Dixon Platelet mean volume (Bld) [Entitic vol] 10.3 fL Normal 9.5-13.5 [facility] Comment on above: Performed By: #### C BC #### [facility] [address] [place] [address] Dr. Johnna Dixon PLT 184 103/ul Normal 150-450 [facility] Comment on above: Performed By: #### C BC #### [facility] [address] [place] [address] Dr. Johnna Dixon RBC 3.58 106/ul Critically low 4.70-6.10 [facility] Comment on above: Performed By: #### C BC #### [facility] [address] [place] [address] Dr. Johnna Dixon WBC 6.0 103/ul Normal 4.0-11.0 [facility] Comment on above: Performed By: #### C BC #### [facility] [address] [place] [address] Dr. Johnna Dixon PROF 14(COMP METB)on 023 Albumin [Mass/Vol] 2.7 g/dL Critically low 3.4-5.0 [facility] Comment on above: Performed By: #### C VDTB #### [facility] [address] [place] [address] [address] Johnna Dixon Albumin/Globulin [Mass ratio] 0.9 {ratio} Normal [facility] Comment on above: Performed By: #### C VDTBH #### [facility] [address] [place] [address] [address] Johnna Dixon ALP [Catalytic activity/Vol] 32 U/L Critically low 46-116 [facility] Comment on above: Performed By: #### C VDTBH #### [facility] [address] [place] [address] [address] Johnna Dixon ALT [Catalytic activity/Vol] 19 U/L Normal 16-63 [facility] Comment on above: Performed By: #### C VDTBH #### [facility] [address] [place] [address] Dr. Johnna Dixon Anion gap [Moles/Vol] 14.0 mmol/L Normal [facility] Comment on above: Performed By: #### C VDTBH #### [facility] [address] [place] [address] Dr. Johnna Dixon AST [Catalytic activity/Vol] 12 U/L Critically low 15-37 [facility] Comment on above: Performed By: #### C VDTBH #### [facility] [address] [place] [address] Dr. Johnna Dixon Bilirubin [Mass/Vol] 0.6 mg/dL Normal 0.2-1.0 [facility] Comment on above: Performed By: #### C VDTBH #### [facility] [address] [place] [address] Dr. Johnna Dixon Calcium [Mass/Vol] 8.3 mg/dL Critically low 8.5-10.1 [facility] Comment on above: Performed By: #### C VDTBH #### [facility] [address] [place] [address] Dr. Johnna Dixon Chloride [Moles/Vol] 107 mmol/L Normal 98-107 [facility] Comment on above: Performed By: #### C VDTBH #### [facility] [address] [place] [address] [address] Johnna Dixon CO2 [Moles/Vol] 24.9 mmol/L Normal 21.0-32.0 [facility] Comment on above: Performed By: #### C VDTBH #### [facility] [address] [place] [address] [address] Johnna Dixon Creatinine [Mass/Vol] 1.20 mg/dL Normal 0.70-1.30 [facility] Comment on above: Performed By: #### C VDTBH #### [facility] [address] [place] [address] [address] Johnna Dixon EGFR-AF STATELESS >60 Normal >=60 [facility] Comment on above: Performed By: #### C VDTBH #### [facility] [address] [place] [address] [address] Johnna Dixon EGFR-NON AF STATELESS 60 mL/min/1.73m2 Normal >=60 [facility] Comment on above: Performed By: #### C VDTBH #### [facility] [address] [place] [address] [address] Johnna Dixon Globulin (S) [Mass/Vol] 2.9 g/dL Normal [facility] Comment on above: Performed By: #### C VDTBH #### [facility] [address] [place] [address] [address] Johnna Dixon Glucose [Mass/Vol] 153 mg/dL Critically high 74-106 [facility] Comment on above: Performed By: #### C VDTBH #### [facility] [address] [place] [address] [address] Johnna Dixon Potassium [Moles/Vol] 3.9 mmol/L Normal 3.5-5.1 [facility] Comment on above: Performed By: #### C VDTBH #### [facility] [address] [place] [address] [address] Johnna Dixon Protein [Mass/Vol] 5.6 g/dL Critically low 6.4-8.2 [facility] Comment on above: Performed By: #### C VDTBH #### [facility] [address] [place] [address] Dr. Johnna Dixon Sodium [Moles/Vol] 142 mmol/L Normal 136-145 [facility] Comment on above: Performed By: #### C VDTBH #### [facility] [address] [place] [address] Dr. Johnna Dixon Urea nitrogen [Mass/Vol] 14.0 mg/dL Normal 7.0-18.0 [facility] Comment on above: Performed By: #### C VDTBH #### [facility] [address] [place] [address] Dr. Johnna Dixon Urea nitrogen/Creatinine [Mass ratio] 11.7 mg/mg Normal [facility] Comment on above: Performed By: #### C VDTBH #### [facility] [address] [place] [address] Dr. Johnna Dixon CBC AUTO DIFFon 10-05-2022 BASO # 0.0 103/ul Normal 0.0-0.1 [facility] Comment on above: Performed By: #### S PUTGS #### [facility] [address] [place] [address] Dr. Johnna Dixon Basophils/100 WBC (Bld) 0.2 % Normal 0.2-2.0 [facility] Comment on above: Performed By: #### S PUTGS #### [facility] [address] [place] [address] Dr. Johnna Dixon EO # 0.0 103/ul Normal 0.0-0.7 [facility] Comment on above: Performed By: #### S PUTGS #### [facility] [address] [place] [address] Dr. Johnna Dixon Eosinophils/100 WBC (Bld) 0.2 % Critically low 0.9-7.0 [facility] Comment on above: Performed By: #### S PUTGS #### [facility] [address] [place] [address] Dr. Johnna Dixon Erythrocyte distribution width (RBC) [Ratio] 14.1 % Normal 11.0-15.0 [facility] Comment on above: Performed By: #### S PUTGS #### [facility] [address] [address] [address] Johnna Dixon Hematocrit (Bld) [Volume fraction] 39.9 % Critically low 42.0-54.0 [facility] Comment on above: Performed By: #### S PUTGS #### [facility] [address] [place] [address] [address] Johnna Dixon Hemoglobin (Bld) [Mass/Vol] 12.8 g/dL Critically low 14.0-18.0 [facility] Comment on above: Performed By: #### S PUTGS #### [facility] [address] [place] [address] Dr. Johnna Dixon IG # 0.01 10e3/ul Normal 0.00-0.03 [facility] Comment on above: Performed By: #### S PUTGS #### [facility] [address] [place] [address] Dr. Johnna Dixon IG % 0.2 % Normal 0.0-0.5 [facility] Comment on above: Performed By: #### S PUTGS #### [facility] [address] [place] [address] Dr. Johnna Dixon LYMPH # 0.7 103/ul Critically low 1.2-3.8 [facility] Comment on above: Performed By: #### S PUTGS #### [facility] [address] [place] [address] Dr. Johnna Dixon Lymphocytes/100 WBC (Bld) 14.3 % Critically low 20.5-60.0 [facility] Comment on above: Performed By: #### S PUTGS #### [facility] [address] [place] [address] Dr. Johnna Dixon MANUAL DIFF REQ NO Normal [facility] Comment on above: Performed By: #### S PUTGS #### [facility] [address] [place] [address] Dr. Johnna Dixon MCH (RBC) [Entitic mass] 30.7 pg Normal 25.9-34.0 [facility] Comment on above: Performed By: #### S PUTGS #### [facility] [address] [address] [address] Johnna Dixon MCHC (RBC) [Mass/Vol] 32.1 g/dL Normal 29.9-35.2 [facility] Comment on above: Performed By: #### S PUTGS #### [facility] [address] [address] [address] Johnna Dixon MCV (RBC) [Entitic vol] 95.7 fL Critically high 80.0-94 .0 [facility] Comment on above: Performed By: #### S PUTGS #### [facility] [address] [address] [address] Johnna Dixon MONO # 0.6 103/ul Normal 0.3-0.8 [facility] Comment on above: Performed By: #### S PUTGS #### [facility] [address] [place] [address] Dr. Johnna Dixon Monocytes/100 WBC (Bld) 12.5 % Critically high 1.7-12. 0 [facility] Comment on above: Performed By: #### S PUTGS #### [facility] [address] [place] [address] Dr. Johnna Dixon NEUT # 3.6 103/ul Normal 1.4-6.5 [facility] Comment on above: Performed By: #### S PUTGS #### [facility] [address] [place] [address] Dr. Johnna Dixon Neutrophils/100 WBC (Bld) 72.6 % Normal 43.0-75.0 [facility] Comment on above: Performed By: #### S PUTGS #### [facility] [address] [address] [address] Johnna Dixon Platelet mean volume (Bld) [Entitic vol] 9.5 fL Normal 9.5-13.5 [facility] Comment on above: Performed By: #### S PUTGS #### [facility] [address] [address] [address] Johnna Dixon PLT 213 103/ul Normal 150-450 [facility] Comment on above: Performed By: #### S PUTGS #### [facility] [address] [address] [address] Johnna Dixon RBC 4.17 106/ul Critically low 4.70-6.10 [facility] Comment on above: Performed By: #### S PUTGS #### [facility] [address] [address] [address] Johnna Dixon WBC 5.0 103/ul Normal 4.0-11.0 [facility] Comment on above: Performed By: #### S PUTGS #### [facility] [address] [address] [address] Johnna Dixon CULTURE BLOODon 10-05-2022 Microscopic examination of blood, culture Culture Observations: NO GROWTH AT 5 DAYS. Normal [facility] Comment on above: Performed By: #### B LDCX2 #### [facility] [address] [place] [address] Dr. Johnna Dixon Microscopic examination of blood, culture Culture Observations: NO GROWTH AT 5 DAYS. Normal [facility] Comment on above: Performed By: #### S PUTGS #### [facility] [address] [address] [address] Johnna Dixon CULTURE SPUTUMon 10-05-2022 CULTURE SPUTUM Culture Observations: NORMAL RESPIRATORY JONATAN. Normal [facility] Comment on above: Performed By: #### S PUTGS #### [facility] [address] [place] [address] Dr. Johnna Dixon Covid-19 PCR (CVDTB)on 09-19 SARS-CoV-2 (COVID-19) RNA REX+probe Ql (Unsp spec) Not detected Normal NOT DETECTED [facility] Comment on above: Result Comment: This test is not yet approved or cleared by the [place] FDA. When there are no FDA-approved or cleared tests available, and other criteria are met, FDA can make tests available under an emergency access mechanism called an Emergency Use Authorization (EUA). The EUA for this test is supported by the [employer] of Health and Human Service's (HHS's) declaration [...] By: #### C VDTBH #### [facility] [address] [place] [address] Dr. Johnna Dixon LACTATE/LACTIC ACIDon 2022 Lactate [Moles/Vol] 1.2 mmol/L Normal 0.4-2.0 [facility] Comment on above: Performed By: #### L ACT #### [facility] [address] [place] [address] Dr. Johnna Dixon Lactate [Moles/Vol] 2.4 mmol/L Critically high 0.4-2.0 [facility] Comment on above: Performed By: #### L ACT #### [facility] [address] [place] [address] Dr. Johnna Dixon PROF CHEM 8 (BAS METB)on Anion gap [Moles/Vol] 12.6 mmol/L Normal [facility] Comment on above: Performed By: #### B MP #### [facility] [address] [place] [address] Dr. Johnna Dixon Calcium [Mass/Vol] 8.9 mg/dL Normal 8.5-10.1 [facility] Comment on above: Performed By: #### B MP #### [facility] [address] [place] [address] Dr. Johnna Dixon Chloride [Moles/Vol] 106 mmol/L Normal 98-107 [facility] Comment on above: Performed By: #### B MP #### [facility] [address] [place] [address] Dr. Johnna Dixon CO2 [Moles/Vol] 25.8 mmol/L Normal 21.0-32.0 [facility] Comment on above: Performed By: #### B MP #### [facility] [address] [address] [address] Johnna Dixon Creatinine [Mass/Vol] 1.41 mg/dL Critically high 0.70-1.30 [facility] Comment on above: Performed By: #### B MP #### [facility] [address] [address] [address] Johnna Dixon EGFR-AF STATELESS >60 Normal >=60 [facility] Comment on above: Performed By: #### B MP #### [facility] [address] [address] [address] Johnna Dixon EGFR-NON AF STATELESS 50 mL/min/1.73m2 Critically low >=60 [facility] Comment on above: Performed By: #### B MP #### [facility] [address] [address] [address] Johnna Dixon Glucose [Mass/Vol] 111 mg/dL Critically high 74-106 [facility] Comment on above: Performed By: #### B MP #### [facility] [address] [address] [address] Johnna Dixon Potassium [Moles/Vol] 3.4 mmol/L Critically low 3.5-5.1 [facility] Comment on above: Performed By: #### B MP #### [facility] [address] [address] [address] Johnna Dixon Sodium [Moles/Vol] 141 mmol/L Normal 136-145 [facility] Comment on above: Performed By: #### B MP #### [facility] [address] [address] [address] Johnna Dixon Urea nitrogen [Mass/Vol] 17.0 mg/dL Normal 7.0-18.0 [facility] Comment on above: Performed By: #### B MP #### [facility] [address] [address] [address] Johnna Dixon Urea nitrogen/Creatinine [Mass ratio] 12.1 mg/mg Normal [facility] Comment on above: Performed By: #### B MP #### [facility] [address] [address] [address] Johnna Dixon SPUTUM GRAM STAINon 10-06-19 COMMENTS Normal [facility] Comment on above: Performed By: #### S PUTGS #### [facility] [address] [address] [address] Johnna Dixon DIPHTHEROIDS Normal [facility] Comment on above: Performed By: #### S PUTGS #### [facility] [address] [address] [address] Johnna Dixon EPITHELIALS <25 Normal [facility] Comment on above: Performed By: #### S PUTGS #### [facility] [address] [address] [address] Johnna Dixon FUNGAL ELEMENTS Normal [facility] Comment on above: Performed By: #### S PUTGS #### [facility] [address] [address] [address] Johnna Dixon GRAM NEG BACILLI FEW [facility] Comment on above: Performed By: #### S PUTGS #### [facility] [address] [address] [address] Johnna Dixon GRAM NEG DIPPLOCOCCI Normal [facility] Comment on above: Performed By: #### S PUTGS #### [facility] [address] [address] [address] Johnna Dixon GRAM POS BACILLI Normal [facility] Comment on above: Performed By: #### S PUTGS #### [facility] [address] [address] [address] Johnna Dixon GRAM POSITIVE COCCI FEW Normal [facility] Comment on above: Performed By: #### S PUTGS #### [facility] [address] [address] [address] Johnna Dixon WBC (Bld) [#/Vol] 10*3/uL [facility] Comment on above: Performed By: #### S PUTGS #### [facility] [address] [address] [address] Johnna Dixon SYMPTOMATIC COVID-19 ANTIGEN on 10-05-2022 EUA Statement SEE BELOW Normal [facility] Comment on above: Result Comment: This test [...] By: #### C VDAGS #### [facility] [address] [place] [address] Dr. Johnna Dixon SARS-CoV-2 (COVID-19) RNA REX+probe Ql (Unsp spec) Negative Normal NEGATIVE [facility] Comment on above: Performed By: #### C VDAGS #### [facility] [address] [place] [address] [id number] [address] Johnna Dixon XR CHEST 1 Von [...] Date: 2022-10-05 11:44 Normal [facility] US SINGLE QUAD RT UPPERon [...] Date: 2022-09-24 09:46 Normal [facility] AMYLASEon 09-21-2022 Amylase [Catalytic activity/Vol] 78 U/L Normal 25-115 [facility] Comment on above: Performed By: #### C VDTBH #### [facility] [address] [place] [address] Dr. Johnna Dixon CBC AUTO DIFFon 09-21-2022 BASO # 0.0 103/ul Normal 0.0-0.1 [facility] Comment on above: Performed By: #### C VDTBH #### [facility] [address] [place] [address] Dr. Johnna Dixon Basophils/100 WBC (Bld) 0.5 % Normal 0.2-2.0 [facility] Comment on above: Performed By: #### C VDTBH #### [facility] [address] [place] [address] Dr. Johnna Dixon EO # 0.1 103/ul Normal 0.0-0.7 [facility] Comment on above: Performed By: #### C VDTBH #### [facility] [address] [place] [address] Dr. Johnna Dixon Eosinophils/100 WBC (Bld) 1.9 % Normal 0.9-7.0 [facility] Comment on above: Performed By: #### C VDTBH #### [facility] [address] [place] [address] Dr. Johnna Dixon Erythrocyte distribution width (RBC) [Ratio] 14.5 % Normal 11.0-15.0 [facility] Comment on above: Performed By: #### C VDTBH #### [facility] [address] [place] [address] Dr. Johnna Dioxn Hematocrit (Bld) [Volume fraction] 39.1 % Critically low 42.0-54.0 [facility] Comment on above: Performed By: #### C VDTBH #### [facility] [address] [place] [address] Dr. Johnna Dixon Hemoglobin (Bld) [Mass/Vol] 12.8 g/dL Critically low 14.0-18.0 [facility] Comment on above: Performed By: #### C VDTBH #### [facility] [address] [place] [address] Dr. Johnna Dixon IG # 0.05 10e3/ul Critically high 0.00-0.03 [facility] Comment on above: Performed By: #### C VDTBH #### [facility] [address] [place] [address] Dr. Johnna Dixon IG % 0.7 % Critically high 0.0-0.5 [facility] Comment on above: Performed By: #### C VDTBH #### [facility] [address] [place] [address] Dr. Johnna Dixon LYMPH # 2.0 103/ul Normal 1.2-3.8 [facility] Comment on above: Performed By: #### C VDTBH #### [facility] [address] [place] [address] Dr. Johnna Dixon Lymphocytes/100 WBC (Bld) 27.4 % Normal 20.5-60.0 [facility] Comment on above: Performed By: #### C VDTBH #### [facility] [address] [place] [address] Dr. Johnna Dixon MANUAL DIFF REQ NO Normal [facility] Comment on above: Performed By: #### C VDTBH #### [facility] [address] [place] [address] Dr. Johnna Dixon MCH (RBC) [Entitic mass] 31.3 pg Normal 25.9-34.0 [facility] Comment on above: Performed By: #### C VDTBH #### [facility] [address] [place] [address] Dr. Johnna Dixon MCHC (RBC) [Mass/Vol] 32.7 g/dL Normal 29.9-35.2 [facility] Comment on above: Performed By: #### C VDTBH #### [facility] [address] [place] [address] Dr. Johnna Dixon MCV (RBC) [Entitic vol] 95.6 fL Critically high 80.0-94 .0 [facility] Comment on above: Performed By: #### C VDTBH #### [facility] [address] [place] [address] Dr. Johnna Dixon MONO # 0.5 103/ul Normal 0.3-0.8 [facility] Comment on above: Performed By: #### C VDTBH #### [facility] [address] [place] [address] Dr. Johnna Dixon Monocytes/100 WBC (Bld) 6.9 % Normal 1.7-12.0 [facility] Comment on above: Performed By: #### C VDTBH #### [facility] [address] [place] [address] Dr. Johnna Dixon NEUT # 4.7 103/ul Normal 1.4-6.5 [facility] Comment on above: Performed By: #### C VDTBH #### [facility] [address] [place] [address] Dr. Johnna Dixon Neutrophils/100 WBC (Bld) 62.6 % Normal 43.0-75.0 [facility] Comment on above: Performed By: #### C VDTBH #### [facility] [address] [place] [address] Dr. Johnna Dixon Platelet mean volume (Bld) [Entitic vol] 9.3 fL Critically low 9.5-13.5 [facility] Comment on above: Performed By: #### C VDTBH #### [facility] [address] [place] [address] Dr. Johnna Dixon PLT 235 103/ul Normal 150-450 [facility] Comment on above: Performed By: #### C VDTBH #### [facility] [address] [address] [address] Johnna Dixon RBC 4.09 106/ul Critically low 4.70-6.10 [facility] Comment on above: Performed By: #### C VDTBH #### [facility] [address] [place] [address] Dr. Johnna Dixon WBC 7.4 103/ul Normal 4.0-11.0 [facility] Comment on above: Performed By: #### C VDTBH #### [facility] [address] [place] [address] Dr. Johnna Dixon LIPASEon 09-21-2022 Lipase [Catalytic activity/Vol] 114.0 U/L Normal 73.0-393.0 [facility] Comment on above: Performed By: #### C VDAGS #### [facility] [address] [place] [address] Dr. Johnna Dixon LIVER PROFILEon 09-21-2022 Albumin [Mass/Vol] 3.9 g/dL Normal 3.4-5.0 [facility] Comment on above: Performed By: #### C VDTBH #### [facility] [address] [place] [address] Dr. Johnna Dixon Albumin/Globulin [Mass ratio] 1.6 {ratio} Normal [facility] Comment on above: Performed By: #### C VDTBH #### [facility] [address] [place] [address] Dr. Johnna Dixon ALP [Catalytic activity/Vol] 59 U/L Normal 46-116 [facility] Comment on above: Performed By: #### C VDTBH #### [facility] [address] [place] [address] Dr. Johnna Dixon ALT [Catalytic activity/Vol] 23 U/L Normal 16-63 [facility] Comment on above: Performed By: #### C VDTBH #### [facility] [address] [place] [address] Dr. Johnna Dixon AST [Catalytic activity/Vol] 8 U/L Critically low 15-37 [facility] Comment on above: Performed By: #### C VDTBH #### [facility] [address] [place] [address] Dr. Johnna Dixon BILI, CONJUGATED 0.1 mg/dL Normal 0.0-0.2 [facility] Comment on above: Performed By: #### C VDTBH #### [facility] [address] [place] [address] Dr. Johnna Dixon Bilirubin [Mass/Vol] 0.3 mg/dL Normal 0.2-1.0 [facility] Comment on above: Performed By: #### C VDTBH #### [facility] [address] [place] [address] Dr. Johnna Dixon Globulin (S) [Mass/Vol] 2.5 g/dL Normal [facility] Comment on above: Performed By: #### C VDTBH #### [facility] [address] [place] [address] Dr. Johnna Dixon Protein [Mass/Vol] 6.4 g/dL Normal 6.4-8.2 [facility] Comment on above: Performed By: #### C VDTBH #### [facility] [address] [place] [address] Dr. Johnna Dixon PROF CHEM 8 (BAS METB)on Anion gap [Moles/Vol] 13.4 mmol/L Normal [facility] Comment on above: Performed By: #### C VDTBH #### [facility] [address] [place] [address] Dr. Johnna Dixon Calcium [Mass/Vol] 8.9 mg/dL Normal 8.5-10.1 [facility] Comment on above: Performed By: #### C VDTBH #### [facility] [address] [place] [address] Dr. Johnna Dixon Chloride [Moles/Vol] 106 mmol/L Normal 98-107 [facility] Comment on above: Performed By: #### C VDTBH #### [facility] [address] [address] [address] Johnna Dixon CO2 [Moles/Vol] 25.6 mmol/L Normal 21.0-32.0 [facility] Comment on above: Performed By: #### C VDTBH #### [facility] [address] [address] [address] Johnna Dixon Creatinine [Mass/Vol] 1.21 mg/dL Normal 0.70-1.30 [facility] Comment on above: Performed By: #### C VDTBH #### [facility] [address] [place] [address] Dr. Johnna Dixon EGFR-AF STATELESS >60 Normal >=60 [facility] Comment on above: Performed By: #### C VDTBH #### [facility] [address] [address] [address] Johnna Dixon EGFR-NON AF STATELESS 59 mL/min/1.73m2 Critically low >=60 [facility] Comment on above: Performed By: #### C VDTBH #### [facility] [address] [place] [address] Dr. Johnna Dixon Glucose [Mass/Vol] 115 mg/dL Critically high 74-106 [facility] Comment on above: Performed By: #### C VDTBH #### [facility] [address] [address] [address] Johnna Dixon Potassium [Moles/Vol] 4.0 mmol/L Normal 3.5-5.1 [facility] Comment on above: Performed By: #### C VDTBH #### [facility] [address] [place] [address] Dr. Johnna Dixon Sodium [Moles/Vol] 141 mmol/L Normal 136-145 [facility] Comment on above: Performed By: #### C VDTBH #### [facility] [address] [place] [address] Dr. Johnna Dixon Urea nitrogen [Mass/Vol] 19.0 mg/dL Critically high 7.0-18.0 [facility] Comment on above: Performed By: #### C VDTBH #### [facility] [address] [address] [address] Johnna Dixon Urea nitrogen/Creatinine [Mass ratio] 15.7 mg/mg Normal [facility] Comment on above: Performed By: #### C VDTBH #### [facility] [address] [address] [address] Johnna Dixon CREATININEon 08-04-2022 Creatinine [Mass/Vol] 1.31 mg/dL Critically high 0.70-1.30 [facility] Comment on above: Performed By: #### C JANIS #### [facility] [address] [place] [address] Dr. Johnna Dixon EGFR-AF STATELESS >60 Normal >=60 [facility] Comment on above: Performed By: #### C JANIS #### [facility] [address] [place] [address] Dr. Johnna Dixon EGFR-NON AF STATELESS 54 mL/min/1.73m2 Critically low >=60 [facility] Comment on above: Performed By: #### C JANIS #### [facility] [address] [place] [address] Dr. Johnna Dixon CTA NECK WO W [...] by: ALLI CORTES Date: 2022-08-04 14:04 Normal [facility] US CAROTID ART BILon 023 US CAROTID [...] by: ALLI CORTES Date: 2022-07-28 12:00 Normal [facility] XR KNEE RT 4V or >on 023 [...] by: DEBORAH ZARAGOZA Date: 2022-06-30 17:38 Normal [facility] XR RIBS RT PA Fab 2 XR [...] Date: 2022-05-25 14:51 Normal [facility] XR RIBS RT PA Fab [...] small pleural effusion Normal [facility] CT CHEST WO CONon 04-18-2022 [...] Date: 2022-04-18 16:17 Normal [facility] CULTURE URINEon 03-12-2022 CULTURE URINE Culture Observations: NO GROWTH. Normal [facility] Comment on above: Performed By: #### S PUTGS #### [facility] [address] [address] [address] Johnna Dixon COVID-19 Positive/NegativeOr dered By: Lionel Whitney on 02-13-2022 SARS-CoV-2 (COVID-19) N gene REX+probe Ql (Resp) Negative Negative [facility] Comment on above: Testing for SARS-CoV -2 by RT-PCR This test was developed and its performance characteristics determined by [employer] ([employer]) and validated at the [facility]. This test has not been FDA cleared [...] aPTT Coag (PPP) [Time] 34.8 s 25.1-36.5 Fi [facility] Basophils Auto (Bld) [#/Vol] Ordered By: Lionel Whitney on 02-06-2022 Basophils (Bld) [#/Vol] 0.0 10*3/uL 0.0-0.2 [facility] Basophils/100 WBC Auto (Bld) Ordered By: Lionel Whitney on 02-06-2022 Basophils/100 WBC (Bld) 0.8 % . F [facility] Blood hemoglobin measurement (mass/volume)Ordered By: Lionel Whitney on 02-06-2022 Hemoglobin (Bld) [Mass/Vol] 13.2 g/dL 13.0-17.0 [facility] Blood leukocytes automated c ount (number/volume)Ordered By: Lionel Whitney on 02-06-2022 WBC (Bld) [#/Vol] 5.7 10*3/uL 4.5-11.0 [facility] Creatinine and Glomerular fi ltration rate.predicted panel (S/P/Bld)Ordered By: Lionel Whitney on 02-06-2022 Creatinine [Mass/Vol] 1.21 mg/dL 0.64-1.27 [facility] Eosinophils Auto (Bld) [#/Vo l]Ordered By: Lionel Whitney on 02-06-2022 Eosinophils (Bld) [#/Vol] 0.1 10*3/uL 0.0-0.45 [facility] Eosinophils/100 WBC Auto (Bl d)Ordered By: Lionel Whitney on 02-06-2022 Eosinophils/100 WBC (Bld) 1.7 % . [facility] Erythrocyte distribution wid th Auto (RBC) [Ratio]Ordered By: Lionel Whitney on 02-06-2022 Erythrocyte distribution width (RBC) [Ratio] 14.2 % 12.0-14.8 [facility] Estimated glomerular filtrat ion rate (GFR) non- AmericanOrdered By: Lionel Whitney on 02-06-2022 GFR/1.73 sq M.predicted among non-blacks MDRD (S/P/Bld) [Vol rate/Area] 59 mL/Min [facility] Hematocrit Auto (Bld) [Volum e fraction]Ordered By: Lionel Whitney on 02-06-2022 Hematocrit (Bld) [Volume fraction] 40.8 % 38.8-50.0 [facility] - CoagulationOrde red By: Lionel Whitney on 02-06-2022 PT Coag (PPP) [Time] 11.0 s 9.0-12.9 [facility] - Hematology and Cell countsOrdered By: Lionel Whitney on 02-06-2022 Nucleated RBC/100 WBC (Bld) [Ratio] 0.1 % 0-0.5 [facility] Lymphocytes Auto (Bld) [#/Vo l]Ordered By: Lionel Whitney on 02-06-2022 Lymphocytes (Bld) [#/Vol] 1.6 10*3/uL 1.00-4.8 [facility] Lymphocytes/100 WBC Auto (Bl d)Ordered By: Lionel Whitney on 02-06-2022 Lymphocytes/100 WBC (Bld) 27.4 % . [facility] MCH Auto (RBC) [Entitic mass ]Ordered By: Lionel Whitney on 02-06-2022 MCH (RBC) [Entitic mass] 29.7 pg 27.5-35.2 [facility] MCHC Auto (RBC) [Mass/Vol]Or dered By: Lionel Whitney on 02-06-2022 MCHC (RBC) [Mass/Vol] 32.4 g/dL 32.5-35.6 [facility] MCV Auto (RBC) [Entitic vol] Ordered By: Lionel Whitney on 02-06-2022 MCV (RBC) [Entitic vol] 91.6 fL 83.5-101 F [facility] Monocytes Auto (Bld) [#/Vol] Ordered By: Lionel Whitney on 02-06-2022 Monocytes (Bld) [#/Vol] 0.5 10*3/uL 0.0-0.8 [facility] Monocytes/100 WBC Auto (Bld) Ordered By: Lionel Whitney on 02-06-2022 Monocytes/100 WBC (Bld) 8.7 % . F [facility] Neutrophils Auto (Bld) [#/Vo l]Ordered By: Lionel Whitney on 02-06-2022 Neutrophils (Bld) [#/Vol] 3.5 10*3/uL 1.8-7.7 [facility] Neutrophils/100 WBC Auto (Bl d)Ordered By: Lionel Whitney on 02-06-2022 Neutrophils/100 WBC (Bld) 61.4 % . [facility] No Panel InformationOrdered By: Lionel Whitney on 02-06-2022 Estimated GFR () > 60 mL/Min [facility] Comment on above: GFR estimated refere nce range: According to KDOQI guidelines, <60 ml/min/1.73m2 is sufficient to diagnose a patient with chronic kidney disease. Pharmacy Creatinine Clearance (Chem N/A [facility] Platelet mean volume Auto (B ld) [Entitic vol]Ordered By: Lionel Whitney on 02-06-2022 Platelet mean volume (Bld) [Entitic vol] 8.4 fL 6.6-10.1 [facility] Platelet poor plasma interna tional normalized ratio (INR) by coagulation assay (relatOrdered By: Lionel Whitney on 02-06-2022 INR Coag (PPP) [Relative time] 1.0 {INR} [facility] Comment on above: INR Therapeutic Rang e [...] (Bld) [#/Vol] 248 10*3/uL 150-450 [facility] RBC Auto (Bld) [#/Vol]Ordere d By: Lionel Whitney on 02-06-2022 RBC (Bld) [#/Vol] 4.45 10*6/uL 3.90-5.60 [facility] Serum or plasma calcium eliezer urement (mass/volume)Ordered By: Lionel Whitney on 02-06-2022 Calcium [Mass/Vol] 9.7 mg/dL 8.2-10.2 [facility] Serum or plasma chloride sammy surement (moles/volume)Ordered By: Lionel Whitney on 02-06-2022 Chloride [Moles/Vol] 99 mmol/L 95-114 [facility] Serum or plasma glucose eliezer urement (mass/volume)Ordered By: Lionel Whitney on 02-06-2022 Glucose [Mass/Vol] 99 mg/dL 70-100 [facility] Comment on above: ADA recommended refe rence range Random Glucose Reference Range is dependent on time and content of last meal. Glucose of more than 200 mg/dL in a nonstressed, ambulatory subject supports the diagnosis of Diabetes Mellitus. Serum or plasma potassium me asurement (moles/volume)Ordered By: Lionel Whitney on 02-06-2022 Potassium [Moles/Vol] 4.4 mmol/L 3.5-5.1 [facility] Serum or plasma sodium measu rement (moles/volume)Ordered By: Lionel Whitney on 02-06-2022 Sodium [Moles/Vol] 135 mmol/L 136-146 [facility] Serum or plasma total carbon dioxide measurement (moles/volume)Ordered By: Lionel Whitney on 02-06-2022 CO2 [Moles/Vol] 26.2 mmol/L 22.0-30.0 [facility] Serum or plasma urea nitroge n measurement (mass/volume)Ordered By: Lionel Whitney on 02-06-2022 Urea nitrogen [Mass/Vol] 20 mg/dL 9-23 [facility] COVID-19 Positive/NegativeOr dered By: Lionel Whitney on 10-27-2021 SARS-CoV-2 (COVID-19) N gene REX+probe Ql (Resp) Negative Negative [facility] Comment on above: Testing for SARS-CoV -2 by RT-PCR This test was developed and its performance characteristics determined by [employer] ([employer]) and validated at the [facility]. This test has not been FDA cleared [...] aPTT Coag (PPP) [Time] 36.2 s 25.1-36.5 [facility] Basophils Auto (Bld) [#/Vol] Ordered By: Lionel Whitney on 10-17-2021 Basophils (Bld) [#/Vol] 0.0 10*3/uL 0.0-0.2 [facility] Basophils/100 WBC Auto (Bld) Ordered By: Lionel Whitney on 10-17-2021 Basophils/100 WBC (Bld) 0.6 % [facility] Blood hemoglobin measurement (mass/volume)Ordered By: Lionel Whitney on 10-17-2021 Hemoglobin (Bld) [Mass/Vol] 13.6 g/dL 13.0-17.0 [facility] Blood leukocytes automated c ount (number/volume)Ordered By: Lionel Whitney 10-17-2021 WBC (Bld) [#/Vol] 5.9 10*3/uL 4.5-11.0 [facility] Creatinine and Glomerular fi ltration rate.predicted panel (S/P/Bld)Ordered By: Lionel Whitney on 10-17-2021 Creatinine [Mass/Vol] 0.96 mg/dL 0.64-1.27 [facility] Eosinophils Auto (Bld) [#/Vo l]Ordered By: Lionel Whitney 10-17-2021 Eosinophils (Bld) [#/Vol] 0.1 10*3/uL 0.0-0.45 [facility] Eosinophils/100 WBC Auto (Bl d)Ordered By: Lionel Whitney on 10-17-2021 Eosinophils/100 WBC (Bld) 2.0 % [facility] Erythrocyte distribution wid th Auto (RBC) [Ratio]Ordered By: Lionel Whitney on 10-17-2021 Erythrocyte distribution width (RBC) [Ratio] 14.5 % 12.0-14.8 [facility] Estimated glomerular filtrat ion rate (GFR) non- AmericanOrdered By: Lionel Whitney on 10-17-2021 GFR/1.73 sq M.predicted among non-blacks MDRD (S/P/Bld) [Vol rate/Area] > 60 mL/Min [facility] Hematocrit Auto (Bld) [Volum e fraction]Ordered By: Lionel Whitney on 10-17-2021 Hematocrit (Bld) [Volume fraction] 41.5 % 38.8-50.0 [facility] - CoagulationOrde red By: Lionel Whitney on 10-17-2021 PT Coag (PPP) [Time] 11.0 s 9.0-12.9 [facility] - Hematology and Cell countsOrdered By: Lionel Whitney on 10-17-2021 Nucleated RBC/100 WBC (Bld) [Ratio] 0.0 % 0-0.5 [facility] Lymphocytes Auto (Bld) [#/Vo l]Ordered By: Lionel Whitney on 10-17-2021 Lymphocytes (Bld) [#/Vol] 1.6 10*3/uL 1.00-4.8 [facility] Lymphocytes/100 WBC Auto (Bl d)Ordered By: Lionel Whitney on 10-17-2021 Lymphocytes/100 WBC (Bld) 26.8 % [facility] MCH Auto (RBC) [Entitic mass ]Ordered By: Lionel Whitney on 10-17-2021 MCH (RBC) [Entitic mass] 29.3 pg 27.5-35.2 [facility] MCHC Auto (RBC) [Mass/Vol]Or dered By: Lionel Whitney on 10-17-2021 MCHC (RBC) [Mass/Vol] 32.7 g/dL 32.5-35.6 [facility] MCV Auto (RBC) [Entitic vol] Ordered By: Lionel Whitney on 04-29-2022 MCV (RBC) [Entitic vol] 89.8 fL 83.5-101 F [facility] Monocytes Auto (Bld) [#/Vol] Ordered By: Lionel Whitney on 10-17-2021 Monocytes (Bld) [#/Vol] 0.6 10*3/uL 0.0-0.8 [facility] Monocytes/100 WBC Auto (Bld) Ordered By: Lionel Whitney on 10-17-2021 Monocytes/100 WBC (Bld) 10.6 % F [facility] Neutrophils Auto (Bld) [#/Vo l]Ordered By: Lionel Whitney on 10-17-2021 Neutrophils (Bld) [#/Vol] 3.5 10*3/uL 1.8-7.7 [facility] Neutrophils/100 WBC Auto (Bl d)Ordered By: Lionel Whitney on 10-17-2021 Neutrophils/100 WBC (Bld) 60.0 % [facility] No Panel InformationOrdered By: Lionel Whitney on 10-17-2021 Estimated GFR () > 60 mL/Min [facility] Comment on above: GFR estimated refere nce range: According to KDOQI guidelines, <60 ml/min/1.73m2 is sufficient to diagnose a patient with chronic kidney disease. Pharmacy Creatinine Clearance (Chem N/A [facility] Platelet mean volume Auto (B ld) [Entitic vol]Ordered By: Lionel Whitney on 10-17-2021 Platelet mean volume (Bld) [Entitic vol] 8.3 fL 6.6-10.1 [facility] Platelet poor plasma interna tional normalized ratio (INR) by coagulation assay (relatOrdered By: Lionel Whitney on 10-17-2021 INR Coag (PPP) [Relative time] 1.0 {INR} [facility] Comment on above: INR Therapeutic Rang e [...] (Bld) [#/Vol] 249 10*3/uL 150-450 [facility] RBC Auto (Bld) [#/Vol]Ordere d By: Lionel Whitney on 10-17-2021 RBC (Bld) [#/Vol] 4.62 10*6/uL 3.90-5.60 [facility] Serum or plasma calcium eliezer urement (mass/volume)Ordered By: Lionel Whitney on 10-17-2021 Calcium [Mass/Vol] 9.7 mg/dL 8.2-10.2 [facility] Serum or plasma chloride sammy surement (moles/volume)Ordered By: Lionel Whitney on 10-17-2021 Chloride [Moles/Vol] 101 mmol/L 95-114 [facility] Serum or plasma glucose eliezer urement (mass/volume)Ordered By: Lionel Whitney on 10-17-2021 Glucose [Mass/Vol] 87 mg/dL 70-100 [facility] Comment on above: ADA recommended refe rence range Random Glucose Reference Range is dependent on time and content of last meal. Glucose of more than 200 mg/dL in a nonstressed, ambulatory subject supports the diagnosis of Diabetes Mellitus. Serum or plasma potassium me asurement (moles/volume)Ordered By: Lionel Whitney on 10-17-2021 Potassium [Moles/Vol] 4.4 mmol/L 3.5-5.1 [facility] Serum or plasma sodium measu rement (moles/volume)Ordered By: Lionel Whitney on 10-17-2021 Sodium [Moles/Vol] 136 mmol/L 136-146 [facility] Serum or plasma total carbon dioxide measurement (moles/volume)Ordered By: Lionel Whitney on 10-17-2021 CO2 [Moles/Vol] 25.6 mmol/L 22.0-30.0 [facility] Serum or plasma urea nitroge n measurement (mass/volume)Ordered By: Lionel Whitney on 10-17-2021 Urea nitrogen [Mass/Vol] 18 mg/dL 9-23 [facility] Vital Signs Date Time Vital Sign Value Performing Clinician Facility 05-08-2024 11:49-0500 Diastolic blood pressure 90 mm[Hg] Cady Espinosa MD Work Phone: [facility] 05-08-2024 11:49-0500 Systolic blood pressure 180 mm[Hg] Cady Espinosa MD Work Phone: [facility] 05-08-2024 11:28-0500 Heart rate 67 /min Cady Espinosa MD Work Phone: [facility] 05-08-2024 11:27-0500 Body height 182.9 cm Cady Espinosa MD Work Phone: [facility] 05-08-2024 11:27-0500 Body mass index (BMI) [Ratio] 25.96 kg/m2 Cady Espinosa MD Work Phone: [facility] 05-08-2024 11:27-0500 Body weight 86.82 kg Cady Espinosa MD Work Phone: [facility] 03-28-2024 14:58-0400 Body height 182.88 cm [facility] 03-28-2024 14:58-0400 Body mass index (BMI) [Ratio] 24.7 kg/m2 [facility] 03-28-2024 14:58-0400 Body weight 83 kg [facility] 10-11-2023 15:27-0400 Body height 182.88 cm MD Yolande Monterroso Work Phone: [facility] 10-11-2023 15:27-0400 Body mass index (BMI) [Ratio] 25 kg/m2 MD Yolande Monterroso Work Phone: [facility] 10-11-2023 15:27-0400 Body temperature 97.2 [degF] MD Yolande Monterroso Work Phone: [facility] 10-11-2023 15:27-0400 Body weight 83.91 kg MD Yolande Monterroso Work Phone: [facility] 10-11-2023 15:27-0400 Diastolic blood pressure 88 mm[Hg] MD Yolande Monterroso Work Phone: [facility] 10-11-2023 15:27-0400 Heart rate 79 /min MD Yolande Monterroso Work Phone: [facility] 10-11-2023 15:27-0400 Systolic blood pressure 146 mm[Hg] MD Yolande Monterroso Work Phone: [facility] 10-04-2023 10:35-0400 Blood Pressure Location Lionel WHITNEY [facility] 10-04-2023 10:35-0400 Diastolic blood pressure 88 mm[Hg] Lionel WHITNEY [facility] 10-04-2023 10:35-0400 Heart rate 72 /min Lionel WHITNEY [facility] 10-04-2023 10:35-0400 Respiratory rate 16 /min Lionel WHITNEY [facility] 10-04-2023 10:35-0400 Systolic blood pressure 136 mm[Hg] Lionel WHITNEY [facility] 08-12-2023 11:10-0500 Body height 182.88 cm MD Yolande Monterroso Work Phone: [facility] 08-12-2023 11:10-0500 Body mass index (BMI) [Ratio] 24.3 kg/m2 MD Yolande Monterroso Work Phone: [facility] 08-12-2023 11:10-0500 Body weight 81.19 kg MD Yolande Monterroso Work Phone: [facility] 02-10-2023 14:16-0400 Blood Pressure Location Qamar SMITH [facility] [place] 02-10-2023 14:16-0400 Diastolic blood pressure 80 mm[Hg] Qamar NILL [facility] [place] 02-10-2023 14:16-0400 Heart rate 70 /min Qamar BOWERSL [facility] [place] 02-10-2023 14:16-0400 Respiratory rate 16 /min Qamar BOWERSL [facility] [place] 02-10-2023 14:16-0400 Systolic blood pressure 124 mm[Hg] Qamar BOWERSL [facility] [place] 12-03-2022 10:20-0400 Body height 182.88 cm Zoran Chavez Other [employer] Other 12-03-2022 10:20-0400 Body mass index (BMI) [Ratio] 25.49 kg/m2 Zorna Chavez Other [employer] Other 12-03-2022 10:20-0400 Body weight 85.28 kg Zoran Chavez Other [employer] Other 10-22-2022 10:20-0400 Body height 182.88 cm Zoran Chavez Other [employer] Other 10-22-2022 10:20-0400 Body mass index (BMI) [Ratio] 25.63 kg/m2 Zoran Chavez Other [employer] Other 10-22-2022 10:20-0400 Body weight 85.73 kg Zoran Chavez Other [employer] Other 10-22-2022 10:20-0400 Diastolic blood pressure 80 mm[Hg] Zoran Chavez Other [employer] Other 10-22-2022 10:20-0400 Systolic blood pressure 110 mm[Hg] Zoran Chavez Other [employer] Other 02-24-2022 10:43-0400 Blood Pressure Location Lionel WHITNEY [facility] 02-24-2022 10:43-0400 Diastolic blood pressure 80 mm[Hg] Lionel WHITNEY [facility] 02-24-2022 10:43-0400 Heart rate 65 /min Lionel WHITNEY [facility] 02-24-2022 10:43-0400 Respiratory rate 16 /min Lionel WHITNEY [facility] 02-24-2022 10:43-0400 Systolic blood pressure 140 mm[Hg] Lionel WHITNEY [facility] 02-17-2022 15:15-0400 Diastolic blood pressure 83 mm[Hg] MD Yolande Monterroso Work Phone: [facility] 02-17-2022 15:15-0400 Heart rate 58 /min MD Yolande Monterroso Work Phone: [facility] 02-17-2022 15:15-0400 Respiratory rate 16 /min MD Yolande Monterroso Work Phone: [facility] 02-17-2022 15:15-0400 SaO2% (BldA) [Mass fraction] 95 % MD Yolande Monterroso Work Phone: [facility] 02-17-2022 15:15-0400 Systolic blood pressure 166 mm[Hg] MD Yolande Monterroso Work Phone: [facility] 02-17-2022 14:30-0400 Body height 182.88 cm MD Yolande Monterroso Work Phone: [facility] 02-17-2022 14:30-0400 Body mass index (BMI) [Ratio] 26.2 kg/m2 MD Yolande Monterroso Work Phone: [facility] 02-17-2022 14:30-0400 Body weight 87.7 kg MD Yolande Monterroso Work Phone: [facility] 02-17-2022 14:17-0400 Body temperature 97.6 [degF] MD Yolande Monterroso Work Phone: [facility] 02-17-2022 13:52-0400 Inhaled oxygen flow rate 10 L/min MD Yolande Monterroso Work Phone: [facility] 10-17-2021 11:42-0400 Body height 180.34 cm MD Yolande Monterroso Work Phone: [facility] 10-17-2021 11:42-0400 Body mass index (BMI) [Ratio] 27 kg/m2 MD Yolande Monterroso Work Phone: [facility] 10-17-2021 11:42-0400 Body temperature 98.4 [degF] MD Yolande Monterroso Work Phone: [facility] 10-17-2021 11:42-0400 Body weight 88 kg MD Yolande Monterroso Work Phone: [facility] 10-17-2021 11:42-0400 Diastolic blood pressure 90 mm[Hg] MD Yolande Monterroso Work Phone: [facility] 10-17-2021 11:42-0400 Heart rate 64 /min MD Yolande Monterroso Work Phone: [facility] 10-17-2021 11:42-0400 SaO2% (BldA) [Mass fraction] 100 % MD Yolande Monterroso Work Phone: [facility] 10-17-2021 11:42-0400 Systolic blood pressure 172 mm[Hg] MD Yolande Monterroso Work Phone: [facility] Encounters Encounter Date Encounter Type Care Provider Facility Start: 10-09-2024 ambulatory Lionel Valdivia ty:[facility] Start: 07-12-2024 ambulatory Lionel Wadei ty:[facility] [place] Start: 07-06-2024 ambulatory Lionel Wadei ty:CD:[id number] Start: 06-09-2024 End: 06-09-2024 Subsequent hospital visit by physician Tania Ramirez Echo/Vasc Room 2 [facility] Comment on above: Left carotid bruit; Unequal blood pressure in upper extremities Former smoker; Shortness of breath Start: 06-09-2024 End: 06-09-2024 ambulatory CADY ESPINOSA [facility] Start: 06-05-2024 End: 06-05-2024 ambulatory Tamiko Landa MD Facility:[facility] Start: 05-29-2024 End: 05-29-2024 ambulatory Tamiko Landa MD Facility:[facility] Start: 05-22-2024 End: 05-22-2024 Lab Drop off Lionel WHITNEY [facility] Start: 05-22-2024 End: 05-22-2024 ambulatory Lionel R WHITNEY Facility:[facility] Start: 05-22-2024 End: 05-22-2024 Patient encounter procedure Lionel R DEVONTE [facility] Start: 05-09-2024 End: 05-09-2024 ambulatory Lioneljameel WHITNEY Facility:[facility] Start: 05-09-2024 End: 05-09-2024 Patient encounter procedure Lionel R WHITNEY [facility] Start: 05-08-2024 End: 05-08-2024 Office consultation new/estab patient 60 min Cady Espinosa MD Work Phone: [facility] Comment on above: Unequal blood pressu re in upper extremities; Uncontrolled hypertension; Shortness of breath; Mixed hyperlipidemia; History of prostate cancer; Hx of bladder cancer; History of fractured rib; Former smoker; BMI 25.0-25.9,adult; Medication course changed Start: 05-08-2024 End: 05-08-2024 ambulatory [facility] Start: 04-10-2024 End: 04-10-2024 ambulatory Tamiko Landa MD Facility:[facility] Start: 03-28-2024 End: 03-28-2024 ambulatory [facility] Work Phone: Start: 03-28-2024 End: 03-28-2024 Patient encounter procedure [facility] Neurosurgery Work Phone: Start: 03-27-2024 End: 03-27-2024 ambulatory Tamiko Landa MD Facility:[facility] Start: 10-26-2023 End: 10-26-2023 ambulatory Lionel WHITNEY Facility:[facility] Start: 10-26-2023 End: 10-26-2023 Patient encounter procedure Lionel WHITNEY [facility] Start: 10-11-2023 End: 10-11-2023 ambulatory MD Yolande Monterroso Work Phone: [facility] Work Phone: Start: 10-11-2023 End: 10-11-2023 Patient encounter procedure MD Yolande Monterroso Work Phone: [facility] Infectious Disease Work Phone: Start: 10-04-2023 End: 10-04-2023 ambulatory Lionel WHITNEY Facility[facility] Start: 10-04-2023 End: 10-04-2023 Patient encounter procedure Lionel WHITNEY [facility] Start: 09-30-2023 End: 09-30-2023 ambulatory KELLY ORTIZ Not Available Start: 09-09-2023 End: 09-09-2023 ambulatory VASU GALEANO Not Available Start: 08-28-2023 End: 08-28-2023 ambulatory Yolande Monterroso Facility:[facility] Start: 08-28-2023 End: 08-28-2023 Patient encounter procedure MD Yolande Monterroso Work Phone: [facility] [place] Work Phone: Start: 08-12-2023 End: 08-12-2023 ambulatory Yolande Monterroso Facility:[facility] Start: 08-12-2023 End: 08-12-2023 ambulatory MD Yolande Monterroso Work Phone: [facility] Work Phone: Start: 08-12-2023 End: 08-12-2023 Patient encounter procedure MD Yolande Monterroso Work Phone: [facility] [place] Work Phone: Start: 08-12-2023 End: 08-12-2023 ambulatory MD Yolande Monterroso Work Phone: [facility] Work Phone: Start: 08-12-2023 End: 08-12-2023 Patient encounter procedure MD Yolande Monterroso Work Phone: [facility] Work Phone: Start: 07-26-2023 End: 07-26-2023 ambulatory Tamiko Landa MD Facility:[facility] Start: 04-27-2023 End: 04-27-2023 Patient encounter procedure Lionel WHITNEY [facility] Start: 02-10-2023 End: 02-10-2023 Patient encounter procedure Qamar SMITH [facility] Start: 01-05-2023 End: 01-05-2023 Patient encounter procedure Lionel WHITNEY [facility] Start: 01-01-2023 End: 01-01-2023 ambulatory Yolande Monterroso Facility:[facility] Start: 01-01-2023 End: 01-01-2023 ambulatory MD Yolande Monterroso Work Phone: [facility] Work Phone: Start: 01-01-2023 End: 01-01-2023 Patient encounter procedure MD Yolande Monterroso Work Phone: [facility] [place] Work Phone: Start: 12-03-2022 End: 12-03-2022 ambulatory Zoran Chavez Other [employer] Other Start: 12-03-2022 Office outpatient vi sit 15 minutes Zoran Chavez [facility] Neurosurgery Start: 11-20-2022 ambulatory ANDRIUS GIEDRAITIS Faci lity:[facility] Start: 10-28-2022 End: 10-29-[address] NELLY HERRERA Facility:[facility] Start: 10-27-2022 End: 11-18-[address] ZORAN CHAVEZ Facility:[facility] Start: 10-23-2022 End: 10-24-[address] ZORAN CHAVEZ Facility:[facility] Start: 10-22-2022 End: 10-22-2022 ambulatory Zoran Chavez Other [employer] Other Start: 10-22-2022 Office outpatient vi sit 15 minutes Zoran Chavez [facility] Neurosurgery Start: 10-05-2022 End: 10-06-[address] YOLANDE MONTERROSO . Facility:[facility] Start: 09-24-2022 End: 09-25-[address] YOLANDE MONTERROSO . Facility:[facility] Start: 09-21-2022 End: 09-22-[address] LIONEL WHITNEY . Facility:[facility] Start: 09-21-2022 End: 09-21-2022 Patient encounter procedure Lionel WHITNEY [facility] Start: 08-19-2022 End: 08-20-[address] LIONEL WHITNEY . Facility:[facility] Start: 08-17-2022 End: 08-17-2022 Patient encounter procedure Lionel WHITNEY [facility] Start: 08-04-2022 End: 08-05-[address] YOLANDE MONTERROSO . Facility:[facility] Start: 07-28-2022 End: 07-29-[address] YOLANDE MONTERROSO . Facility:[facility] Start: 07-23-2022 End: 07-23-[address] LIONEL WHITNEY . Facility:[facility] Start: 07-20-2022 End: 07-20-2022 Patient encounter procedure Lionel WHITNEY [facility] Start: 07-07-2022 End: 07-07-2022 Patient encounter procedure Lionel WHITNEY [facility] Start: 06-30-2022 End: 07-01-[address] YOLANDE MONTERROSO . Facility:[facility] Start: 06-04-2022 End: 06-04-[address] YOLANDE MONTERROSO . Facility:[facility] Start: 05-25-2022 End: 05-26-[address] YOLANDE MONTERROSO . Facility:[facility] Start: 05-18-2022 End: 05-18-2022 Patient encounter procedure Lionel WHITNEY [facility] Start: 04-27-2022 End: 04-28-[address] YOLANDE MONTERROSO . Facility:[facility] Start: 04-18-2022 End: 04-18-[address] FELICIA GALDAMEZ . Facility:[facility] Start: 04-15-2022 End: 04-15-2022 Patient encounter procedure Lionel WHITNEY [facility] Start: 03-26-2022 End: 03-26-[address] LIONEL WHITNEY . Facility:[facility] Start: 03-12-2022 End: 03-13-[address] YOLANDE MONTERROSO . Facility:[facility] Start: 03-09-2022 End: 03-09-2022 Patient encounter procedure Lionel WHITNEY [facility] Start: 02-27-2022 End: 02-27-2022 Lab Drop off Lionel WHITNEY [facility] Start: 02-27-2022 End: 02-27-2022 Patient encounter procedure Lionel WHITNEY [facility] Start: 02-24-2022 End: 02-24-2022 Patient encounter procedure Lionel WHITNEY [facility] Start: 02-17-2022 End: 02-17-2022 Admission to same day surgery center MD Yolande Monterroso Work Phone: [facility] [place] Start: 02-13-2022 End: 02-13-2022 Patient encounter procedure MD Yolande Monterroso Work Phone: [facility] Start: 02-06-2022 End: 02-06-2022 Patient encounter procedure MD Yolande Monterroso Work Phone: [facility] Start: 11-11-2021 End: 11-11-2021 Patient encounter procedure Lionel WHITNEY [facility] Start: 11-05-2021 End: 11-05-2021 Patient encounter procedure Lionel WHITNEY [facility] [place] Start: 10-29-2021 End: 10-29-2021 Admission to same day surgery center MD Yolande Monterroso Work Phone: [facility] [place] Start: 10-27-2021 End: 10-27-2021 Patient encounter procedure MD Yolande Monterroso Work Phone: [facility] Start: 10-17-2021 End: 10-17-2021 Patient encounter procedure MD Yolande Monterroso Work Phone: [facility] Procedures Date Procedure Procedure Detail Performing Clinician Start: 06-09-2024 Duplex scan extracra nial art compl bi study Cady Espinosa MD Work Phone: Start: 06-09-2024 Echo tthrc r-t 2d w/ wom-mode compl spec&colr d Cady Espinosa MD Work Phone: Start: 05-08-2024 Ecg routine ecg w/le ast [...] By: #### P SAD #### [facility] [address] [address] [address] Johnna Dixon Start: 02-17-2022 Transurethral resect [...] Cystourethroscopy wi dilation of urethral stricture Lionel WHITNEY Start: [...] WHITNEY Comment on above: had recently at [facility] Start: 05-21-2014 Man DOSS Start: 06-21-2010 Complete repair of r [...] DTaP/Tdap/Td Vaccines (3 - Td or Tdap) [facility] Start: 08-08-2024 End: 05-08-2025 Alanine aminotransferase [Enzymatic activity/volume] in Serum or Plasma by With P-5'-P Alanine Aminotransferase Lab Routine Mixed hyperlipidemia Expected: 08/08/2024, Expires: 05/08/2025 [facility] Work Phone: Comment on above: Expected: 08/08/2024, Expires: Start: 08-08-2024 End: 05-08-2025 Aspartate aminotransferase [Enzymatic activity/volume] in Serum or Plasma by With P-5'-P Aspartate Aminotransferase Lab Routine Mixed hyperlipidemia Expected: 08/08/2024, Expires: 05/08/2025 [facility] Work Phone: Comment on above: Expected: 08/08/2024, Expires: Start: 08-08-2024 End: 05-08-2025 Lipid 1996 panel - Serum or Plasma Lipid Panel Lab Routine Mixed hyperlipidemia Expected: 08/08/2024, Expires: 05/08/2025 [facility] Work Phone: Comment on above: Expected: 08/08/2024, Expires: Start: 07-17-2024 End: 07-17-2024 Patient encounter procedure 07/17/2024 10:45 AM EST Office Visit [address] [id number] Cady Espinosa MD [address] [facility] [address] [place], [place] [id number] [facility] Start: 06-08-2024 End: 06-08-2024 Patient encounter procedure 06/08/2024 10:45 AM EST Appointment [facility] [address] [facility] [address] [place] [id number] [facility] Start: 05-15-2024 End: 05-08-2025 Basic metabolic 2000 panel - Serum or Plasma Basic Metabolic Panel Lab Routine Uncontrolled hypertension Expected: 05/15/2024 (Approximate), Expires: 05/08/2025 [facility] Work Phone: Comment on above: Expected: 05/15/2024 (Approximate), Expi res: 05/08/2025 Start: 05-08-2024 End: 05-08-2026 US Heart Transthoracic Transthoracic Echo Complete Echocardiography Routine Former smoker Shortness of breath Expected: 05/08/2024 (Approximate), Expires: 05/08/2026 [facility] Work Phone: Comment on above: Expected: 05/08/2024 (Approximate), Expi res: 05/08/2026 Start: 02-20-2024 COVID-19 Vaccine ( season) COVID-19 Vaccine ( season) [facility] Start: 02-20-2024 Influenza vaccination Influenza Vaccine (#1) [facility] Start: 08-12-2023 Patient referral [facility] Work Phone: Start: 08-12-2023 X-ray of cervical spine XR cervical spine w flex/ext [facility] Start: 08-12-2023 X-ray of lumbar spine, six views including bending views XR lumbar spine 6V w bending [facility] Start: 08-12-2023 XR Cervical spine Views W flexion and W extension [facility] Start: 08-12-2023 XR Lumbar spine Views [facility] Start: 02-17-2022 End: 02-17-2022 [facility] Work Phone: Start: 02-17-2022 Transurethral resection of bladder neoplasm OR Cysto/TURBT/Bladder Biopsy/Fulg (Not Applicable) [facility] Start: 02-17-2022 End: 02-17-2022 Admission to same day surgery center Departed Surgical Day Care [facility] [place] Start: 02-13-2022 End: 02-13-2022 Patient encounter procedure Departed Clinical [facility] Start: 02-03-2016 Abdominal aortic aneurysm screening Abdominal Aortic Aneurysm (AAA) Screening [facility] Start: 2011 RSV High Risk: (Elderly (60+) or Population) (1 - Risk 60-74 years 1-dose series) RSV High Risk: (Elderly (60+) or Population) (1 - Risk 60-74 years 1-dose series) [facility] Start: 1969 Diabetes mellitus screening Diabetes Screening [facility] Start: 1969 Hepatitis C screening Hepatitis C Screening [facility] Start: 1951 Lipid panel Lipid Panel [facility] Start: 1951 Medicare Annual Wellness Visit Medicare Annual Wellness Visit (AWV) [facility] Start: 1951 Screening for malignant neoplasm of colon [facility] Start: 1951 Thyroid stimulating hormone measurement TSH Level [facility] Microbial culture of sputum [facility] MR Cervical spine WO and W contrast IV [facility] Patient referral [facility] Work Phone: Immunizations Immunization Date Immunization Notes Care Provider Fa nolan 07-13-2023 zoster vaccine recombinant Lionel WHITNEY [facility] 03-23-2023 influenza virus vacc ine, unspecified formulation Lionel WHITNEY [facility] 03-23-2023 zoster vaccine recombinant Lionel WHITNEY [facility] 04-16-2022 SARS-CoV-2 (COVID-19 ) [id number] Qamar SMITH [facility] 03-27-2022 influenza virus vacc ine, unspecified formulation Qamar SMITH [facility] 05-06-2021 COVID-19 mRNA-1273 (Moderna) MD Yolande Monterroso Work Phone: [facility] 09-19-2020 COVID-19 mRNA-1273 (Moderna) MD Yolande Monterroso Work Phone: [facility] Comment on above: Result Comment: 2022: [id number] 08-22-2020 COVID-19 mRNA-1273 (Moderna) MD Yolande Monterroso Work Phone: [facility] Comment on above: Result Comment: 2022: [id number] 06-21-2020 SARS-CoV-2 (COVID-19 ) mRNA-1273 vaccine Lionel WHITNEY [facility] 05-23-2020 influenza virus vacc ine, unspecified formulation Qamar SMITH [facility] 04-03-2020 influenza virus vacc ine, unspecified formulation Qamar SMITH [facility] 05-29-2019 influenza virus vacc ine, unspecified formulation Qamar SMITH [facility] 04-14-2019 influenza, unspecifi ed formulation Qamar SMITH [facility] 09-26-2018 tetanus and diphther ia toxoids, adsorbed, preservative free, for adult use (2 Lf of tetanus toxoid and 2 Lf of diphtheria toxoid) Qamar NILL [facility] 10-11-2017 pneumococcal polysaccharide vaccine, 23 valent Qamar NILL [facility] 07-22-2016 pneumococcal conjuga te vaccine, 13 valent Qamar NILL [facility] 06-29-2013 tetanus toxoid, redu mirtha diphtheria toxoid, and acellular pertussis vaccine, adsorbed Qamar NILL [facility] 03-10-2000 Td(adult) unspecifie d formulation Qamar NILL [facility] Payers Date Payer Category Payer Self-pay [id number] 2022 Medicare (Managed Care) [employer] MEDICARE ADVANTAGE [id number] 2022 Unknown 1959 Medicare [id number] 1959 Unknown [id number] 08.06.840.1.987826.19 1950 Unknown [id number] 08.06.840.1.999868.3.579.2 .593 1951 Unknown [id number] 2.16.840.1.169193.3.579.2 .593 1951 Unknown [id number] 2.16.840.1.151392.3.579.2 .593 1951 Unknown [id number] 2.16.840.1.054503.3.579.2 .593 1951 Unknown [id number] 2.16.840.1.016646.3.579.2 .593 1951 Unknown [id number] 2.16.840.1.149940.3.579.2 .593 1951 Unknown [id number] 2.16.840.1.613053.3.579.2 .593 1951 Unknown [id number] 2.16.840.1.670780.3.579.2 .593 1951 Unknown [id number] 2.16.840.1.421544.3.579.2 .593 1951 Unknown [id number] 2.16.840.1.710646.3.579.2 .593 1951 Unknown [id number] 2.16.840.1.718273.3.579.2 .593 1951 Unknown [id number] 2.16.840.1.792261.3.579.2 .593 1951 Unknown [id number] 2.16.840.1.542220.3.579.2 .593 1951 Unknown [id number] 2.16.840.1.760940.3.579.2 .593 1951 Unknown [id number] 2.16.840.1.693854.3.579.2 .593 1951 Unknown [id number] 2.16.840.1.942864.3.579.2 .593 1951 Unknown [id number] 2.16.840.1.466232.3.579.2 .593 1951 Unknown [id number] 2.16.840.1.511633.3.579.2 .593 1951 Unknown [id number] 2.16.840.1.938665.3.579.2 .593 1951 Unknown [id number] 2.16.840.1.739577.3.579.2 .1259 1951 Unknown [id number] 2.16.840.1.722236.3.579.2 .1259 1951 Unknown [id number] 2.16.840.1.291354.3.579.2 .727 1951 Unknown [id number] 2.16.840.1.290190.3.579.2 .727 1951 Unknown [id number] 2.16.840.1.729803.3.579.2 .727 1951 Unknown [id number] 2.16.840.1.654296.3.579.2 .727 1951 Unknown [id number] 2.16.840.1.552284.3.579.2 .727 1951 Unknown [id number] 2.16.840.1.875406.3.579.2 .727 1951 Unknown [id number] 2.16.840.1.831848.3.579.2 .727 1951 Unknown [id number] 2.16.840.1.497816.3.579.2 .1244 1951 Unknown [id number] 2.16.840.1.578776.3.579.2 .196 1950 Unknown [id number] 2.16.840.1.116646.3.579.2 .196 1950 Unknown [id number] 2.16.840.1.014213.3.579.2 .196 1951 Unknown [id number] 2.16.840.1.335489.3.579.2 .196 1951 Unknown [id number] 2.16.840.1.695124.3.579.2 .196 1951 Unknown [id number] 2.16.840.1.602753.3.579.2 .1246 1950 Unknown [id number] 2.16.840.1.196088.3.579.2 .1246 Medicare Medicare [id number] Private Health Insurance [id number] Unknown [place] [id number] Unknown [id number] 2.16.840.1.063670.3.579.2 .531 Unknown [id number] 2.16.840.1.796356.3.579.2 .531 Unknown [id number] 2.16.840.1.615904.3.579.2 .531 Social History Date Type Detail Facility Start: 10-17-2021 End: 05-08-2024 Tobacco smoking status NHIS Ex-smoker (finding) [facility] Comment on above: pt quit smoking 10+ yrs ago Start: 1950 Sex Assigned At Male F [facility] Start: 11-05-2021 Tobacco smoking status Never s moked tobacco (finding) [facility] [employer] Tobacco smoking status Never [facility] [employer] Comment on above: pt quit smoking 10+ yrs ago Start: 05-08-2024 Sex Assigned At Male [facility] [employer] End: 06-21-2003 History of tobacco use Current smoker [facility] Work Phone: End: 06-21-2003 History of tobacco use Cigarette Smoker [facility] Work Phone: Start: 05-08-2024 Tobacco use and exposure Smokeless tobacco non-user [facility] Work Phone: Start: 05-08-2024 Alcoholic beverage intake Current drinker of alcohol (finding) [facility] Work Phone: Start: 05-08-2024 History of Social function [facility] Work Phone: Start: 05-08-2024 [facility] Start: 1950 Sex assigned at Not on file [facility] Work Phone: Start: 04-28-2024 End: 06-09-2024 Exposure to SARS-CoV-2 (event) Not sure [facility] Medical Equipment Procedure Code Equipment Code Equipment Original Text Equipment Identifier Dates Transurethral resection of bladder tumor (TURBT) with cystoscopy Polymeric ureteral stent ()[id number] FDA Start: 10-29-2021 Decompression, spine, cervical, posterior approach Bone-screw internal spinal fixation system, non-sterile ()[id number] FDA Start: 04-18-2020 Decompression, spine, cervical, posterior approach Bone-screw internal spinal fixation system, non-sterile ()[id number] FDA Start: 04-18-2020 Decompression, spine, cervical, posterior approach Bone-screw internal spinal fixation system, non-sterile ()[id number] FDA Start: 04-18-2020 Decompression, spine, cervical, posterior approach Bone-screw internal spinal fixation system, non-sterile ()[id number] FDA Start: 04-18-2020 Decompression, spine, cervical, posterior approach Bone-screw internal spinal fixation system, non-sterile ()[id number] FDA Start: 04-18-2020 Goals Date Patient Goal Desired Activity /State Functional Status Date Assessment Result Facility 05-09-2024 Functional Status N/A [facility] 10-26-2023 Functional Status N/A [facility] 10-04-2023 Functional Status N/A [facility] 04-27-2023 Functional Status N/A [facility] 02-10-2023 Functional Status N/A [facility] [place] 01-05-2023 Functional Status N/A [facility] 02-24-2022 Functional Status N/A [facility] Clinical Notes 11-04-2021 to 05-09-2024 Note Date [...] Date:07/12/2024 10:30:00 AM Scheduled Provider:Lionel WHITNEY MD Location:[facility] Appointment Type:URO Office Visit Appointment Date:10/09/2024 10:15:00 AM Scheduled Provider:Lionel WHITNEY MD Location:[facility] Appointment Type:URO Office Visit Diagnostic Tests Pending * UroVysion Fish and Urine Cyto ([facility]) 05/09/24 [facility] [id number] Hospital Discharge instructions Patient Education 05/09/2024 09:39:50 [...] Up Care 04/13/2024 11:43:40 With:Lionel WHITNEY Address: [address] [place] [address]- Business (1) When: Unknown Comments:Office will call to schedule follow up [facility] 11-19-2024 NoteProgress Note-Physician Patient: MARY DIAZ Age: 74 years Sex: Male : 1950 Associated Diagnoses: None Author: DEVONTE NOBLE, Lionel Garcia X this gentleman has a [...] All Problems HTN (hypertension) / SNOMED CT [id number] / Confirmed Acute gouty arthritis / SNOMED CT [id number] / Confirmed lots of inflammation per pt sometimes has to get steroids History of prostate cancer / SNOMED CT 6077319191 / Confirmed History of kidney stones / SNOMED CT 9585559966 / Confirmed Impotence / SNOMED CT 1421807830 / Confirmed Bladder cancer / SNOMED CT 6073403891 / Confirmed Spondylolisthesis of cervical region / SNOMED CT 770219146 / Confirmed Chronic obstructive pulmonary disease / SNOMED CT 87098026 / Confirmed GERD (gastroesophageal reflux disease) / SNOMED CT 500866636 / Confirmed BMI 23.0-23.9, adult / SNOMED CT 4588242337 / Confirmed Personal history of colonic polyps / SNOMED CT 2854355135 / Confirmed Chronic GERD / SNOMED CT 509872985 / Confirmed Change in bowel habits / SNOMED CT 879537719 / Confirmed Iron deficiency anemia / SNOMED CT 552084540 / Confirmed Personal history of bladder cancer / SNOMED CT 2518812424 / Confirmed Shoulder impingement syndrome / SNOMED CT 725109513 / Confirmed Ecchymosis / SNOMED CT 801278230 / Confirmed left leg from españa to ankle- box with snowblower in it slipped off a cart and banged his leg. Foot pink and dry with immediate capillary refill, 4t pedal and poterior tibial pulses. Umbilical hernia / SNOMED CT 5042260804 / Confirmed Histories Past Medical History: Active HTN (hypertension) ([id number]) Acute gouty arthritis ([id number]) Comments: 08/22/2014 EST 16:07 Jannette Del Rio RN lots of inflammation per pt sometimes has to get steroids Resolved Cancer of prostate ([id number]): Resolved. Comments: 08/22/2014 EST 16:09 Jannette Del Rio RN just had a surgery done radical prostectomy at [facility] Acid reflux ([id number]): Resolved. Family History: Hypertension Father Diabetes mellitus type 2 Father Depression Sister Procedure history: Cystoscopy (9391110184) on 04/27/2023 at 73 Years. TURBT - Transurethral resection of bladder tumor (5276379899) on 01/14/2023 at 72 Years. TURBT - Transurethral resection of bladder tumor (8457706589) on 02/17/2022 at 72 Years. TURBT - Transurethral resection of bladder tumor (5070425875) on 10/29/2021 at 71 Years. Cystourethroscopy with dilation of urethral stricture (377746434) on 10/14/2021 at 71 Years. Repair of umbilical hernia (55832151) on 06/22/2017 at 67 Years. Comments: 06/22/2017 14:35 Nedra Tavares RN Umbilical hernia repair with mesh ( assisted with robot) Arthroscopy of shoulder ([id number]) on 05/20/2017 at 67 Years. Comments: 05/20/2017 19:03 Zora Gay RN LEFT SHOULDER ARTHROSCOPIC, CHONDROPLASTY,DEBRIDEMENT OF PARTIAL ROTATOR CUFF TEAR, REMOVAL RETAINED SUTURE Radical prostatectomy (90365646) in the month of 08/2014 at 64 Years. bilateral fifth partial metatarsal osteotomies and Silver Tailor's bunionectomies on 08/29/2014 at 64 Years. Colonoscopy (694051564) in the month of 05/2014 at 64 Years. Complete repair of rotator cuff (125900446) in 2010 at 61 Years. Comments: 08/22/2014 16:14 Jannette Del Rio RN right Shoulder reconstruction (834778862) in 1998 at 49 Years. Comments: 08/22/2014 16:15 Jannette Del Rio RN left possibly a screw in there per pt Appendectomy (692612004) in 1965 at 15 Years. Arthroplasty of the ankle (0387389053). Comments: 12/30/2018 14:30 Jayne Elkins 1988, 1990 Arthroscopy of knee (227298231). Cervical vertebral fusion (05762007). Social History Social & Psychosocial Habits Alcohol 10/04/2023 Risk Assessment: Low Risk 10/04/2023 Use: Current Substance Abuse 10/04/2023 Risk Assessment: Denies Substance Abuse Tobacco 10/04/2023 Risk Asse (more content not included)...[facility] Comment on above:Result Comment: Electronically Signed By: DEVONTE NOBLE, Lionel Ernandez\Date and Time Signed: 05/09/24 09:50 [id number] NotePatient Education Custom Cystoscopy ??? Voiding after [...] if you have a fever over [address] 05-08-2024 NoteNormal sinus rhythm 67 bpm left axis deviation incomplete right bundle branch block poor R wave progression. No comparison EKG.[id number] History of Present illness Narrative* Cady Espinosa MD - 05/08/2024 11:15 AM EST Referred by Dr. Qamar Monterroso for New Patient Visit (Tniypejf-Mqzfzy-Ygjeqzmbkser) History Of Present Illness: Mary Diaz is [...] (VOLTAREN) 75 mg, 2 times daily HYDROcodone-acetaminophen ([place]) 5-325 mg tablet 1 tablet, Daily PRN [...] questions arise, Sincerely, Cady Espinosa MD [facility] Provider Attestation - Scribe documentation All medical record entries made by the Scribe were at my direction and personally dictated by me. Ihave reviewed the chart and agree that the record accurately reflects my personal performance of the history, physical exam, discussion and plan. [facility] Work Phone: 1(571) 951-528711-18-2024 Instructions* Patient Instructions* Ella Cruz RN - [...] Provided instructions on exercise. [facility] Work Phone: 1(179) 113-993505-07-2024 Hospital Discharge instructions Patient Education 10/26/2023 11:58:55 [...] Up Care 09/29/2023 09:06:13 With:Lionel WHITNEY Address: [address] [place], [place] [address] [facility] (1) When: Unknown Comments:Office will call to schedule follow up [facility]05-07-2024 Note [id number] 10-26-2023 NoteCustom Cystoscopy ? Voiding after the [...] if you have a fever over [address] 10-04-2023 Hospital Discharge instructions Patient Education [...] if anything looks unusual. Men with a usoxpf-wbvp-fwhhih risk for skin cancer may want to see a hiv prevention specialist (wet end tester) for an annual body check. What are the benefits of screening? Cancer screening is done to look for cancer in the very early stages, before it spreads and becomesharder to treat and before you would start to notice symptoms. Finding cancer early improves the chances of successful treatment. It may save your life. Where to find more information [place] Cancer Society: www.cancer.org Centers for Disease Control and Prevention: www.cdc.gov National Cancer Blue Diamond: www.cancer.gov Contact a health care provider if: [...] provider. Document Revised: 11/03/2021 Document Reviewed: 05/03/2020 [employer] Patient Education 2022 [employer]. Follow Up Care 10/01/2022 10:55:16 With:DEVONTE NOBLE, Lionel Burgos, [place] Address: [facility] [address] [place] [phone] When: Unknown Comments:1 yr w/ PSA [facility] 11-07-2023 Hospital Discharge instructions Patient Education [...] WHITNEY Address: [facility] [address] [place] [address]- Business (1) When: Unknown Comments:Office will call to schedule follow up [facility]07-18-2023 Hospital Discharge instructions Patient Education 01/05/2023 [...] [facility] [address], [place] [address]- Business (1) When: Unknown Comments:Office will call to schedule follow up [facility]06-15-2023 Evaluation note* Encounter Date Diagnosis Assessment [...] M46.1) Nov, Neurogenic claudication (ICD-10 - R29.818) [employer] Other 05-04-2023 Evaluation note* Encounter Date Diagnosis [...] spine October, Neurogenic claudication (ICD-10 - R29.818) [employer] Other 04-03-2023 Hospital Discharge instructions Patient Education [...] if anything looks unusual. Men with a cceekn-tqyd-rgicvg risk for skin cancer may want to see a hiv prevention specialist (wet end tester) for an annual body check. Where to find more information National Cancer Blue Diamond: https://www.cancer.gov/about-cancer/screening Centers for Disease Control and Prevention: https://www.cdc.gov/cancer/dcpc/prevention/screening.htm [place] Cancer Society: https://www.cancer.org/latest-news/4-gjpsvr-odryviqje-dtmlb-foe-vdx.html Contact a health care provider if: You [...] 03/04/2017 Document Revised: 02/24/2019 Document Reviewed: 03/04/2017 [employer] Patient Education 2020 [employer]. Follow Up Care 09/19/2021 11:05:08 With:Lionel WHITNEY MD, URL Address: [facility] [address] [place] [address]- When: Unknown [facility] 01-17-2023 Hospital Discharge instructions Patient Education [...] Address: [facility] [address] [place] [address]- Business (1) When: Unknown Comments:Office will call to schedule follow up [facility]09-06-2022 Hospital Discharge instructions Patient Education 02/24/2022 [...] if anything looks unusual. Men with a lfssxi-xblc-goipli risk for skin cancer may want to see a hiv prevention specialist (wet end tester) for an annual body check. Where to find more information National Cancer Blue Diamond: https://www.cancer.gov/about-cancer/screening Centers for Disease Control and Prevention: https://www.cdc.gov/cancer/dcpc/prevention/screening.htm [place] [employer] Society: https://www.cancer.org/latest-news/6-imtmki-iosrdqzbh-cupmx-aqc-irr.html Contact a health care provider if: You [...] 03/04/2017 Document Revised: 02/24/2019 Document Reviewed: 03/04/2017 [employer] Patient Education 2020 [employer] Follow Up Care 02/05/2022 13:48:40 With:DEVONTE NOBLE, Lionel Burgos, URL Address: [facility] [address] [place] [phone] When: Unknown [facility] 05-24-2022 Hospital Discharge instructions Patient Education [...] Address: [facility] [address] [place] [address]- Business (1) When: Unknown Comments:Keep scheduled appointment [facility]05-17-2022 Hospital Discharge instructions Patient Education 11/04/2021 [...] who: Are older than age 65. Are -[place]. Are obese. Have a family history of [...] cells. Follow these instructions at home: Take qccx-dxl-oikhnoe and prescription medicines only as told by [...] 06/07/2006 Document Revised: 05/20/2018 Document Reviewed: 02/15/2017 [employer] Patient Education [employer]. Follow Up Care 10/14/2021 11:26:04 With:Lionel WHITNEY MD, URL Address: [facility] [address], [place] [address]- When: Unknown [facility] evaluation + Plan note Future Appointments Appointment Date:09/21/2022 09:45:00 AM Scheduled Provider:[facility] Office Visit [facility] Evaluation + Plan note Future Appointments Appointment Date:03/09/2022 09:00:00 AM Scheduled Provider: Location:[facility] Appointment Type:URO Nurse Visit Appointment Date:04/15/2022 09:00:00 AM Scheduled Provider: Location:[facility] [place] Appointment Type:URO Nurse Visit Appointment Date:09/21/2022 09:45:00 AM Scheduled Provider:Lionel WHITNEY MD Location:[facility] [place] Appointment Type:URO Office Visit [facility] Evaluation + Plan note Future Appointments Appointment Date:03/09/2022 09:00:00 AM Scheduled Provider: Location:[facility] [place] Appointment Type:URO Nurse Visit Appointment Date:04/15/2022 09:00:00 AM Scheduled Provider: Location:[facility] [place] Appointment Type:URO Nurse Visit Appointment Date:09/21/2022 09:45:00 AM Scheduled Provider:[facility]NEY [facility] Office Visit Diagnostic Tests Pending * Urine Culture [facility] Future App[facility]ments Appointment Date:04/15/2022 09:00:00 AM Scheduled Provider: Location:[facility] [place] Appointment Type:URO Nurse Visit Appointment Date:09/21/2022 09:45:00 AM Scheduled Provider:Lionel WHITNEY MD Location:[facility] [place] Appointment Type:URO Office Visit [facility] evaluation + Plan note Future Appointments Appointment Date:07/20/2022 10:00:00 AM Scheduled Provider: Location:[facility] [place] Appointment Type:URO Nurse Visit Appointment Date:08/17/2022 10:00:00 AM Scheduled Provider: Location:[facility] [place] Appointment Type:URO Nurse Visit Appointment Date:09/21/2022 09:45:00 AM Scheduled Provider:Lionel WHITNEY MD Location:[facility] [place] Appointment Type:URO Office Visit Diagnostic Tests Pending * UroVysion FISH ([facility]) [facility]07[facility] Future App[facility]ments Appointment Date:08/17/2022 10:00:00 AM Scheduled Provider: Location:[facility] [place] Appointment Type:URO Nurse Visit Appointment Date:09/21/2022 09:45:00 AM Scheduled Provider:Lionel WHITNEY MD [facility] Type:URO Office Visit [facility] Evaluation + Plan note Future Appointments Appointment Date:09/22/2022 02:00:00 PM Scheduled Provider: Location[facility] Appointment Type:Urology CALL PAT FT Appointment Date:09/29/2022 11:15:00 AM Scheduled Provider: Location[facility] Appointment Type:Urology FT [facility] evaluation + Plan note Future Appointments Appointment Date:09/22/2022 02:00:00 PM Scheduled Provider: Location[facility] Appointment Type:Urology CALL PAT FT Appointment Date:09/29/2022 11:15:00 AM Scheduled Provider: Location[facility] Appointment Type:Urology FT Diagnostic Tests Pending * Urine Cytology ([facility]) 09/21/22 [facility] evaluation + Plan note Future Appointments Appointment Date:10/04/2023 10:15:00 AM Scheduled Provider:Lionel WHITNEY MD Location:[facility] Appointment Type:URO Office Visit Diagnostic Tests Pending * UroVysion Fish and Urine Cyto ([facility]) [facility]05[facility]23 [facility] App[facility]ments Appointment Date:10/04/2023 10:15:00 AM Scheduled Provider:Lionel WHITNEY MD Location:[facility] Appointment Type:URO Office Visit [facility] [place] Evaluation + Plan note Future Appointments Appointment Date:10/04/2023 10:15:00 AM Scheduled Provider:Lionel WHITNEY MD Location:[facility] Appointment Type:URO Office Visit Diagnostic Tests Pending * UroVysion Fish and Urine Cyto ([facility]) 04/27/23 [facility] Future App[facility]ments Appointment Date:10/20/2023 12:00:00 PM Scheduled Provider: [facility] Appointment Type:Urology CALL PAT FT Appointment Date:10/26/2023 10:00:00 AM Scheduled Provider: Location[facility] Appointment Type:Urology FT Appointment Date:10/09/2024 10:15:00 AM Scheduled Provider:Lionel WHITNEY MD Location:[facility] Appointment Type:URO Office Visit Diagnostic Tests Pending * PSA Total 10/04/23 [facility] evaluation + Plan note Future Appointments Appointment Date:10/09/2024 10:15:00 AM Scheduled Provider:Lionel WHITNEY MD [facility] App[facility] Type:URO Office Visit Diagnostic Tests Pending * UroVysion Fish and Urine Cyto ([facility] Future Appointments Appointment Date:07/12/2024 10:30:00 AM Scheduled Provider:Lionel WHITNEY MD Location:[facility] Appointment Type:URO Office Visit Appointment Date:10/09/2024 10:15:00 AM Scheduled Provider:Lionel WHITNEY MD [facility] Appointment Type:URO Office Visit [facility] evaluation + Plan note Future Appointments Appointment Date:07/12/2024 10:30:00 AM Scheduled Provider:Lionel WHITNEY MD Location:[facility] Appointment Type:URO Office Visit Appointment Date:10/09/2024 10:15:00 AM Scheduled Provider:Lionel WHITNEY MD [facility] Appointment Type:URO Office Visit Diagnostic Tests Pending * Urine Cytology ([facility]) 05/22/24 [facility] evaluation noteNo assessment information available [facility] Work Phone: evaluation note* Diagnosis Onset Date Resolution Status Spinal stenosis of cervical region with radiculopathy acute Spinal stenosis of lumbar region with radiculopathy acute [facility] Work Phone: evaluation note* Diagnosis Onset Date Resolution Status Spinal stenosis of cervical region with radiculopathy acute Spinal stenosis of lumbar region with radiculopathy acute Colonization status acute COPD (chronic obstructive pulmonary disease) acute [facility] Work Phone: evaluation note* Diagnosis Unequal [...] Medication course changed documented in this encounter [facility] Work Phone: Evaluation note* Diagnosis Left carotid bruit Unequal blood pressure in upper extremities documented in this encounter [facility] Work Phone: Evaluation note* Diagnosis Former smoker Personal history of tobacco use, presenting hazards to health Shortness of breath documented in this encounter [facility] Work Phone: History general Narrative - [...] KNEE SCOPE Surgical History [facility] Hospitalization History FLU X2-3 DAYS Hospitalization History see surg. hx. [employer] Other Hospital course Narrative No data available for this section [facility] Hospital Discharge instructions No data available for this section [facility] progress note No data available for this section [facility] Reason for visit Narrative* Imaging (Routine) - Authorized Specialty Diagnoses / Procedures Referred By Contac t Referred To Contact Cardiology Diagnoses Left carotid bruit Unequal blood pressure in upper extremities Procedures Vascular US Carotid Artery Duplex Bilateral Cady Espinosa MD [address] [address] Phone: tel: fax: Referral ID Status Reason Start Date Expiration Date Visits Requested Visits Authorized [id number] Authorized Perform Procedure 4 05/10/2025 1 1 [facility] Work Phone: Reason for visit Narrative* CV Imaging (Routine) - Authorized Specialty Diagnoses / Procedures Referred By Contac t Referred To Contact Cardiology Diagnoses Former smoker Shortness of breath Procedures Transthoracic Echo Complete IA ECHO TTHRC R-T 2D W/WOM-MODE COMPL SPEC&COLR D Cady Espinosa MD [address] [address] Phone: tel: fax: Referral ID Status Reason Start Date Expiration Date Visits Requested Visits Authorized [id number] Authorized Perform Procedure 4 05/08/2025 1 1 [facility] Work Phone: Chief Complaint and Reason for Visit Chief [...] Diagnosis 1 Cervical spondylosis (M47.812) Referral [facility] Referring Provider First Name Zoran Referring Provider Last Name Scott Referring Provider Specialty Neurologica l Surgery Referred Organization [facility] Referred Address [address] [place], [place],[address] Referred Provider Specialty Physical The rapist Referral Priority Routine Reason evaluate and tr eat for neck and back pain Diagnosis 1 Cervical spondylosis (M47.812) Diagnosis 2 Low back pain, unspe cified (M54.50) Referral Organization [facility] Referring Provider First Name Zoran Referring Provider Last Name Scott Referring Provider Specialty Neurologica l Surgery Referred Organization [facility] Referred Provider Raoul Soriano Referred Address [address] [place], [place],[address] Referred Provider Specialty Pain Medicin e Referral Priority Routine General Notes Meron Donnelly M 023 08:08:21 AM >Received today and [...] March 28, 2024 End: March 28, 2024 Mud Trucker Relationship Specialty Start Date End Date Yolande Monterroso MD [address] [place] [address] PCP - General Family Medicine 05/08/24 Mud Trucker Relationship Specialty Start Date End Date Yolande Monterroso MD [address] [place] [address] PCP - General Family Medicine 05/08/24 Goals [...] and content) Reason Comments New Patient Visit [facility] Specialty Diagnoses / Procedures Referred By Contac t Referred To Contact Diagnoses Uncontrolled hypertension Shortness of breath Procedures ECG 12 Lead Cady Espinosa MD [address] [facility] [address] [place] [address] Phone: tel: fax: Referral ID Status Reason Start Date Expiration Date V isits Requested Visits Authorized [id number] Authorized 05/08/2024 05/08/2025 1 1 (unrecognized sect ion and content) No Status Records FoundNo Status Records FoundNo Status Records FoundNo Status Records FoundNo Status Records FoundNo Status Records FoundNo Status Records FoundNo Status Records FoundNo Status Records Found INFORMATION SOURCE (unrecogn ized section and content) DATE CREATED AUTHOR 11/27/2022 [facility] DATE CREATED AUTHOR AUTHOR'S ORGANIZ ATION 09/03/2023 [facility] DATE CREATED AUTHOR AUTHOR'S ORGANIZ ATION 10/01/2023 [facility] DATE CREATED AUTHOR AUTHOR'S ORGANIZ ATION [facility]20[facility] DATE CREATED AUTHOR AUTHOR'S ORGANIZ ATION [facility]20[facility] DATE CREATED AUTHOR AUTHOR'S ORGANIZ ATION 06/01/2024 [facility] DATE CREATED AUTHOR AUTHOR'S ORGANIZ ATION 06/14/2024 [facility] DATE CREATED AUTHOR AUTHOR'S ORGANIZ ATION 06/14/2024 [facility] DATE CREATED AUTHOR AUTHOR'S ORGANIZ ATION 06/19/2024 [facility] FOR RECORDS PERTAINING TO PATIENTS [...] BE BASED ON THE PRIMARY CLINICAL RECORDS. [employer] [facility]. provides no warranty or guarantee of the accuracy or completeness of information in this document.
--- NOTE | 2024-07-04 12:08 | XR_ITS ---
The [address] [address] Patient Name: MARY DIAZ MRN: [id number] date: 1950 Sex: M Assigned Patient [facility]: [facility] Current Patient Location: Accession/Order Number: [id number] Exam Date: 07/04/2024 12:10 Report Date: 07/05/2024 05:03 At the request of: ANDRI GIEDRAITIS Procedure: XR hip LT min 2V PROCEDURE: XR hip LT min 2V HISTORY: Left Hip Pain COMPARISON: None. FINDINGS: BONES:Moderate narrowing of the superior joint space. No fracture, dislocation, or significant periarticular degenerative osteophytes. SOFT TISSUES:No visible soft tissue swelling. EFFUSION:None visible. OTHER: Negative. XR/XR hip LT min 2V IMPRESSION: 1. Mild/moderate degenerative joint disease. 2. No acute abnormality. Electronically authenticated by: ALLI CORTES Date: 07/05/2024 05:03
== END 2024-07-04 11:42 | disposition home or self-care (01) ==
LOC: RAD 11:43
PROVIDERS: PCP Family Medicine; Visit Provider Anesthesiology
DX: M25.552 Pain in left hip (principal); M16.12 Unilateral primary osteoarthritis, left hip
CPT/HCPCS: 73502

== ENCOUNTER 2024-07-06 11:20 | Day surgery (SDC) | payer MEDICARE, SELFPAY ==
[2024-06-27 10:57] VITALS: BP 134/82; PULSE 96; TEMP 36.5; O2SAT 100; BMI 28.4
[2024-07-06] VITALS (9 sets, daily range): BP systolic 138–161; BP diastolic 75–80; PULSE 57–76; TEMP 36.2–36.3; O2SAT 95–99; BMI 24.6
[2024-07-06] MEDS: LACTATED RINGER'S SOLUTION 1,000 ML 50 ML IV (12:05)
[2024-07-06] MEDS: CEFAZOLIN SODIUM 2 GM/50 ML D5W PREMIX IV (13:13)
--- NOTE | 2024-07-06 14:28 | PM.URSON ---
Urology Surgery Operative Note Operative Note Procedure Date: 07/06/24 Time Out Performed: yes Pre-op Diagnosis: Recurrent bladder tumors Post-op Diagnosis: same as pre-op Procedures performed: 1. Cystoscopy. 2. Transurethral resection of bladder tumors approximately 4 cm. 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 He now presents for TURBT. He has signed an informed consent after risks were explained. Detailed description of Procedure: The patient was brought to the operating room and placed on the operating room table in the supine position. SCDs were placed on the lower extremities and turned on and functioning during the entire case. Timeout was done by all parties in the room. We all agreed upon the patient's identification and the planned procedures for this patient. Genn. anesthesia was then administered. The patient was then repositioned into the modified dorsal lithotomy position. All pressure points were satisfactorily padded. Genitalia were sterilely prepped and draped in usual fashion. I start di by passing 26 Upper [place] Olympus resectoscope with a standard bipolar loop electrode per urethra and into the bladder. The previously known patch of small papillary bladder tumors adjacent to the left UO were noted. There was a couple additional patches. One was on the right side and 1 on the back wall. I then uniformly resected these tumors. The Ilich was used to get the tissue out and these were sent for permanent sections. The resection beds were coagulated. Upon completion, there was no evidence of any tumors remaining. Both ureteral orifices effluxed clear urine. Urinary Catheter Management Urinary Catheter Management Urethral: Cath placed during this visit: no
[2024-07-06] MEDS: SOLIFENACIN SUCCINATE 10 MG TABLET PO (15:30)
--- NOTE | 2024-07-06 16:52 | PC.NURSE ---
1530: Pt medicated with PO Vesicare per order.
== END 2024-07-06 16:28 | disposition home or self-care (01) ==
PROVIDERS: PCP Family Medicine; Visit Provider Urology
PROC: (CPT 52234; principal; 2024-07-06 12:30)
DX: C67.9 Malignant neoplasm of bladder, unspecified (principal); Z85.46 Personal history of malignant neoplasm of prostate; K21.9 Gastro-esophageal reflux disease without esophagitis; Z87.442 Personal history of urinary calculi; R31.9 Hematuria, unspecified; I10 Essential (primary) hypertension; J44.9 Chronic obstructive pulmonary disease, unspecified; N52.9 Male erectile dysfunction, unspecified; Z87.891 Personal history of nicotine dependence; Z90.79 Acquired absence of other genital organ(s); Z90.49 Acquired absence of other specified parts of digestive tract; Z98.1 Arthrodesis status; M47.812 Spondylosis without myelopathy or radiculopathy, cervical region; M48.062 Spinal stenosis, lumbar region with neurogenic claudication
CPT/HCPCS: 52234; 36415; 88307; J0131; J0690; J1100; J1805; J2250; J2371; J2405; J2704; J3010

== ENCOUNTER 2024-07-13 09:00 | Outpatient (OUT) | payer MEDICARE, SELFPAY ==
[2024-07-13 09:44] LABS: Alanine Aminotransferase 29 U/L (16-63); Aspartate Amino Transferase 14 U/L (15-37); Chol HDL Ratio 3.3; Cholesterol 151 mg/dL (<=200); HDL Cholesterol 46 mg/dL (40-60); Triglycerides 170 mg/dL (<=150)
== END 2024-07-13 09:01 | disposition home or self-care (01) ==
LOC: LAB 09:01
PROVIDERS: PCP Family Medicine; Visit Provider Internal Medicine Interventional Cardiology
DX: E78.2 Mixed hyperlipidemia (principal)
CPT/HCPCS: 36415; 80061; 84450; 84460

== ENCOUNTER 2024-08-07 09:25 | Day surgery (SDC) | payer MEDICARE, SELFPAY ==
[2024-08-07 09:34] VITALS: BP 149/78; PULSE 94; TEMP 36.2; O2SAT 96
--- OUTSIDE RECORDS SUMMARY | 2024-08-07 09:40 | XMS_ITS | CCD ---
Author Organization [facility] Care Team Providers Care Spot Remover Name Role Phone MD Deandre Monterroso Primary Care Provider [phone] MD Lionel Whitney Attending Provider Deandre Monterroso Primary Care Physician Leidy Plummer Unavailable Unavailable MD Deandre Monterroso Primary Care Provider [phone] MD Lionel Whitney Attending Provider [phone] Zoran Chavez Unavailable SHARON, DR VILLEGAS Admitting [...] DR LANIER Consulting Unavailable HOY ., DR DEANDRE Delgado Unavailable HOY ., DR LANIER Primary [...] ., DR LANIER Primary Care Unavailable MD Deandre Monterroso Primary Care Provider MD Zoran Chavez Attending Provider [phone] MD Deandre Monterroso Primary Care Provider LIDA Lowery Attending Provider VASU GALEANO Attending Unavailable KELLY ORTIZ Attending Unavailable MD Deandre Monterroso Primary Care Provider LIDA Lowery Attending Provider Deandre Monterroso MD Primary Care Provider [phone] WHITNEY, Lionel R Attending Unavailable WHITNEY, Lionel R Attending Unavailable DEVONTE, Lionel R Admitting Unavailable CADY ESPINOSA Referring Unavailable DEANDRE MONTERROSO Primary Care Unavailable CADY ESPINOSA Referring Unavailable DEANDRE MONTERROSO Primary Care Unavailable Deandre Monterroso MD Primary Care Provider Lionel Whitney MD Attending Provider Syeda NOBLE, Andrius Magui Attending Unavailable Giedraitis , Andrius Vytautpascale Attending Unavailable Giedraitis , Andrius Vytautpascale Attending Unavailable Giedraitis , Andrius Vytautpascale Attending Unavailable Giedraitis , Andrius Vytautpascale Attending Unavailable Giedraitis , Andrius Vyteli Attending Unavailable Devonte, Lionel Admitting Unavailable Devonte, Lionel Attending Unavailable Deandre Monterroso Primary Care Unavailable Deandre Monterroso Primary Care Unavailable Esther Lowery Admitting Unavailable Esther Lowery Attending Unavailable Deandre Monterroso Primary Care Unavailable Esther Lowery Admitting Unavailable Esther Lowery Attending Unavailable WHITNEY, Lionel R Attending Unavailable WHITNEY, Lionel R Referring Unavailable WHITNEY, Lionel R Admitting Unavailable WHITNEY, Lionel R Attending Unavailable WHITNEY, Lionel R Attending Unavailable WHITNEY, Lionel R Attending Unavailable WHITNEY, Lionel R Attending Unavailable WHITNEY, Lionel R Referring Unavailable WHITNEY, Lionel R Admitting Unavailable WHITNEY, Lionel R Attending Unavailable Whitney Lionel NOBLE Unavailable [phone] CADY ESPINOSA Attending Unavailable DEANDRE MONTERROSO Primary Care Unavailable CADY ESPINOSA Referring Unavailable CADY ESPINOSA Attending Unavailable CADY ESPINOSA Referring Unavailable DEANDRE MONTERROSO Primary Care Unavailable Deandre Monterroso MD Primary Care Provider [phone] VENNEPUREDDY, NORBERTO Referring Unavailable HOWINDY ParedesLAS M Primary Care Unavailable VENNEPUREDDY, NORBERTO Referring Unavailable KRISS DEANDRE M Primary Care Unavailable VENNEPUREDDY, NORBERTO Attending Unavailable VENNEPUREDDY, NORBERTO Referring Unavailable HOY, DEANDRE M Primary Care Unavailable VENNEPUREDDY, NORBERTO Attending Unavailable LIONEL WHITNEY Referring Unavailable VENNEPUREDDY, NORBERTO Referring Unavailable WINDY MONTERROSOLAS M Primary Care Unavailable VENNEPUREDDY, NORBERTO Referring Unavailable WINDY MONTERROSOLAS M Primary Care Unavailable Allergies Allergy Classification Reported Allergen(s) Allergy Type Date of Onset Reaction(s) Facility (10 sources) Acetaminophen; Translations: [acetaminophen] Drug Allergy 0 Itching, Itching agitated, Itching agitated, aggitation [facility] (20 sources) Codeine; Translations: [Codeine] Drug Allergy 4 rash, Agitation [facility] (12 sources) oxyCODONE; Translations: [oxycodone] Drug Allergy 0 Itching, agitated, Itching, agitated, aggitation [facility] (16 sources) Acetaminophen / oxyCODONE; Translations: [acetaminophen-oxyc odone] Drug Allergy aggitation [facility] Rolando Comment on above: pt states this does not work for pt, pt is not allergic to vicodin (7 sources) cyclobenzaprine Drug Allergy 4 itching [facility] (7 sources) HYDROcodone Drug Allergy 4 anxiety [facility] (7 sources) tiZANidine Drug Allergy 4 hives [facility] (4 sources) Acetaminophen / HYDROcodone; Translations: [Vicodin] Drug Allergy [facility] (2 sources) Acetaminophen / oxyCODONE Drug Allergy [facility] (1 source) atorvastatin Drug Allergy [facility] (2 sources) tiZANidine Drug Allergy [facility] (2 sources) Acetaminophen / oxyCODONE; Translations: [Percocet 5/325] Drug Allergy [facility] Repository (1 source) cyclobenzaprine Drug Allergy [address] [place] [address] Repository (1 source) HYDROcodone Drug Allergy 4 [facility] Repository (1 source) tiZANidine Drug Allergy [address] [place] [address] Repository Medications Current Medications Medication Drug Class(es) Dates Sig (Normalized) Sig (Original) acetaminophen 325 mg / HYDROcodone bitartrate 5 mg oral tablet (11 sources) Opioid Agonist Start: 08-12-2023 take 1 tablet by mouth every twenty-four hours as needed HYDROcodone-aceta minophen ([place]) 5-325 mg tablet Take 1 tablet by mouth once daily as needed for severe pain (7 - 10). 08/12/2023 Active Start: 08-12-2023 Hydrocodone-Ac etaminophen 5-325 mg tablet Active 1 TAB PO August 12, 2023 12:00am Start: 02-03-2023 take 1 tablet by barry th every six hours as needed for pain acetaminophen-hydrocodone 325 mg-5 mg or al tablet 1 tab(s), Oral, q6hr as needed for pain, Refill(s) 0 Start Date: 02/03/23 Status: Ordered carvedilol 25 mg oral tablet (20 sources) alpha-Adrenergic Boogie, beta-Adrenergic Boogie Start: 10-17-2021 take 1 tablet by mouth twice daily Carvedilol 25 mg Tablet Active 25 MG PO Twice daily October 16, 2021 11:00pm Start: 09-19-2021 take 2 tablets by mo [facility] twice daily carvedilol 6.25 mg Tab 12.5 mg = 2 tab(s), Oral, BID, Refills(s) 0 Start Date: 09/19/21 Status: Ordered Start: 09-19-2021 carvedilol 6.2 5 mg Tab Refills(s) 0 Start Date: 09/19/21 Status: Ordered take 1 tablet by barry th every twelve hours Carvedilol 12.5 MG 1 tablet with food Orally Twice a day Active diclofenac sodium 75 mg delayed release oral tablet (20 sources) Nonsteroidal Anti-inflammatory Drug Start: 10-17-2021 take 1 tablet by mouth twice daily diclofenac, EC, (VOLTAREN) 75 mg EC tablet Take 75 mg by mouth two times a day. 09/03/2022 Active Start: 08-07-2019 End: 04-19-2020 take 1 tablet by mouth twice daily as needed for pain Diclofenac Sodium 75 mg Tablet,Delayed Release (Dr/Ec) Discontinued 75 MG PO Twice daily as needed for Pain August 07, 2019 12:00am April 19, 2020 7:04am doxazosin 1 mg oral tablet (4 sources) alpha-Adrenergic Boogie Start: 07-17-2024 End: 07-17-2025 doxazosin (CARDURA) 1 mg tablet Take 1 mg by mouth. 07/17/2024 07/17/2025 Active Fluticasone-Umeclid in-Vilanter (20 sources) Anticholinergic, Corticosteroid, beta2-Adrenergic Agonist Start: 08-07-2019 Fluticasone-Ume clidi n-Vilanter (Trelegy Ellipta) 100-62.5-25 mcg Blister With Device Active 1 INH INHALATION Daily August 07, 2019 3:01pm Start: 08-07-2019 Fluticasone-Um eclidin-Vilanter (Trelegy Ellipta) 100-62.5-25 mcg Blister With Device Active 1 INH INHALATION Daily August 07, 2019 12:00am Start: 08-07-2019 Fluticasone-Um eclidin-Vilanter (Trelegy Ellipta) 100-62.5-25 mcg Blister With Device Active 1 INH INHALATION Daily August 07, 2019 1:00am take 1 puff(s) by inhalation once daily nzzmztuvfpu-tgfhdiquk-scpunxxk (TRELEGY ELLIPTA) 100-62.5-25 mcg inhalation powder Inhale 1 Puff as instructed once daily. Active take 1 puff(s) by inhalation in the morning Trelegy Ellipta 100-62.5-25 mcg blister with device Inhale 1 puff early in the morning.. Active hydroCHLOROthiazide 12.5 mg / lisinopril 20 mg oral tablet (12 sources) Thiazide Diuretic, Angiotensin Converting Enzyme Inhibitor Start: 05-08-2024 End: 07-17-2025 take 1 tablet by mouth once daily lisinopril-hydroCHLOROthiazide (ZESTORETIC) 20-12.5 mg per tablet Take 1 tablet by mouth once daily. 07/17/2024 07/17/2025 Active liothyronine (20 sources) l-Triiodothyr onine Start: 10-11-2023 take 1 tablet by mouth once daily Liothyronine 5 mcg tablet Active 25 MCG PO Daily October 10, 2023 11:00pm Start: 10-11-2023 take 25 ug by mouth once daily Liothyronine Active 25 MCG PO Daily October 11, 2023 12:00am Start: 10-04-2023 liothyronine ( CYTOMEL) 25 mcg tablet Take 25 mcg by mouth once daily. Takes 1/2 10/04/2023 Active Start: 10-04-2023 take 0.5 tablet by m outh once daily liothyronine (Cytomel) 25 mcg tablet Take 0.5 tablets (12.5 mcg) by mouth once daily. 10/04/2023 Active Start: 10-04-2023 liothyronine 2 5 mcg Tab Refills(s) 0 Start Date: 10/04/23 Status: Ordered lisinopril 20 mg oral tablet (20 sources) Angiotensin Converting Enzyme Inhibitor Start: 06-22-2017 End: 10-17-2021 take 1 tablet by mouth at bedtime Lisinopril 40 mg Tablet Discontinued 40 MG PO Bedtime August 07, 2019 12:00am October 17, 2021 11:24am Start: 02-19-2017 End: 07-17-2025 take 1 tablet by mouth once daily lisinopril (ZESTRIL) 20 mg tablet Take 20 mg by mouth once daily. 02/19/2017 07/17/2025 Active methocarbamol 500 mg oral tablet (12 sources) Muscle Relaxant Start: 04-21-2023 take 1 tablet by mouth every twenty-four hours as needed methocarbamol (Robaxin) 500 mg tablet Take 1 tablet (500 mg) by mouth once daily as needed for muscle spasms. 04/21/2023 Active methocarbamol 1, 000 mg tablet Take 1,000 mg by mouth as needed (bedtime prn). Active metoprolol tartrate 50 mg oral tablet (2 sources) beta-Adrenergic Boogie Start: 03-28-2024 Metopr olol Tartrate 50 mg tablet Active MG PO March 27, 2024 11:00pm Start: 03-28-2024 Metoprolol Tar trate Active MG PO March 28, 2024 12:00am [...] TAB PO Daily October 17, 2021 12:00am Multivitamin Tablet (1 source) Start: 10-17-2021 take 1 tablet by mouth once daily Multivitamin Tablet Active 1 TAB PO Daily October 16, 2021 11:00pm mv-min/folic/K1/lyc open/lutein (MEN 50 PLUS MULTIVITAMIN ORAL) (5 sources) take 1 tablet by mouth once daily mv-min/folic/K1/ly copen/lutein (MEN 50 PLUS MULTIVITAMIN ORAL) Take 1 tablet by mouth once daily. Active olmesartan medoxomil 40 mg oral tablet (2 sources) Angiotensin 2 Receptor Boogie take 1 tablet by mouth every twenty-four hours Olmesartan Medoxomil 40 MG 1 tablet Orally Once a day Active omeprazole 40 mg Cap-EC (2 sources) Start: 08-22-2014 take 1 capsule by mouth once daily omeprazole 40 mg Cap-EC 40 mg = 1 cap(s), Oral, Daily, Refills(s) 0, Control of stomach acid Start Date: 08/22/14 Status: Ordered pantoprazole 40 mg delayed release oral tablet (20 sources) Proton Pump Inhibitor Start: 08-12-2023 Pantoprazole Active MG PO August 12, 2023 1:00am Start: 10-18-2022 take 1 tablet by barry th once daily pantoprazole DR (PROTONIX) 40 mg tablet Take 40 mg by mouth once daily. 10/18/2022 Active rosuvastatin calcium 20 mg oral tablet (5 sources) HMG-CoA Reductase Inhibitor Start: 05-08-2024 End: 07-17-2025 take 1 tablet by mouth once daily rosuvastatin (Crestor) 20 mg tablet Indications: Mixed hyperlipidemia Take 1 tablet (20 mg) by mouth once daily. 90 tablet 3 07/17/2024 07/17/2025 Active sildenafil 100 mg oral tablet (20 sources) Phosphodiesterase 5 Inhibitor Start: 10-04-2023 sildenafil (VIAGRA) 100 mg tablet Take 100 mg by mouth as needed. 10/04/2023 Active Start: 07-05-2022 take 1 tablet by barry th every twenty-four hours sildenafil 100 mg Tab 100 mg = 1 tab(s), Oral, Daily, Take 1 tablet 1 hr prior to sexual activity as needed. Don't exceed 1 tab (100 mg) in a 24 hr period., # 30 tab(s), Refills(s) 3, Pharmacy: [id number], 170, cm, 02/24/22 10:53:00 EDT, Height/Length Dosing, 78, kg, 02/24/22 10:53:00 EDT, Weight Dosing Start Date: 07/05/22 Status: Ordered Start: 09-19-2021 sildenafil 100 mg Tab 100 mg = 1 tab(s), Oral, Daily, Take 1 pill 30 minutes prior to sexual relations, # 30 tab(s), Refills(s) 3, Pharmacy: [id number], 170, cm, 09/19/21 10:16:00 EDT, Height/Length Dosing, 78, kg, 09/19/21 10:16:00 EDT, Weight Dosing Start Date: 09/19/21 Status: Ordered TENS Unit (2 sources) Start: 09-08-2019 tiZANidine [...] Ellipta 100 mcg-62.5 mcg-25 mcg inhalation powder (8 sources) Start: 02-03-2023 take 1 puff(s) by inhalation once daily Treleleslie Ellipta 100 mcg-62.5 mcg-25 mcg inhalation powder = 1 puff(s), Inhalation, Daily, Refills(s) 0 Start Date: 02/03/23 Status: Ordered Completed/Discontinued Medications Medication Drug Class(es) Dates Sig (Normalized) Sig (Original) allopurinol 300 mg oral tablet (13 sources) Xanthine Oxidase Inhibitor Start: 08-07-2019 End: 04-11-2020 take 1 tablet by mouth once daily Allopurinol 300 mg Tablet Discontinued 300 MG PO Daily August 07, 2019 12:00am April 11, 2020 12:50pm amLODIPine 10 mg oral tablet (20 sources) Dihydropyridine Calcium Channel Boogie Start: 08-12-2023 End: 03-28-2024 Amlodipine 10 mg tablet Discontinued 10 MG PO August 12, 2023 12:00am March 28, 2024 2:34pm Start: 02-10-2023 End: 07-26-2024 take 1 tablet by mouth once daily amLODIPine (NORVASC) 5 mg tablet Take 5 mg by mouth once daily. 02/10/2023 07/26/2024 Discontinued (Discontinued by another Health Care Provider) Start: 08-07-2019 End: 10-17-2021 take 1 tablet by mouth at bedtime Amlodipine 10 mg Tablet Discontinued 10 MG PO Bedtime August 07, 2019 12:00am October 17, 2021 11:30am bcg (TANISHA BCG) 50 mg in NaCl 0.9% 50 mL (1 source) Start: 08-02-2024 End: 08-02-2024 50 mg, INTRAVESICAL, ONCE, 1 dose, On Wed08/02/24 at 1000, Instill into bladder via catheter and retain for 120 minutes, followed by bladder drainage. PROTECT FROM LIGHT Hazardous Chemotherapy Drug: Use appropriate PPE. Protect from Light. cephalexin 500 mg oral capsule (9 sources) Cephalosporin Antibacterial Start: 02-17-2022 End: 08-12-2023 take 1 capsule by mouth every twelve hours Cephalexin 500 mg capsule Discontinued 500 MG PO Q12H 01 01February 16, 2022 11:00pm August 12, 2023 11:08am Start: 02-17-2022 take 500 mg by mouth every twelve hours Cephalexin Active 500 MG PO Q12H 01 01February 172 12:00am Start: 02-17-2022 take 500 mg by [...] # 2 tab(s), Refills(s) 0, Pharmacy: [facility] #[id number], 170, cm, 10/26/23 11:14:00 EDT, Height/Length Dosing, 84, kg, 10/04/23 10:36:00 EDT, Weight Dosing Start Date: 04/13/24 Status: Ordered Start: 01-20-2023 take 1 tablet by barry th once daily Cipro 500 mg Tab 500 mg = 1 tab(s), Oral, Daily, take one tab day before procedure and one tab after procedure, # 2 tab(s), Refills(s) 0, Pharmacy: [facility]/pharmacy #[id number], 170, cm, 01/20/23 10:45:00 EDT, Height/Length Dosing, 83.5, kg, 01/20/23 10:45:00 EDT, Weight Dosing Start Date: 01/20/23 Status: Ordered Start: 12-31-2022 take 1 tablet by barry th once daily Cipro 500 mg Tab 500 mg = 1 tab(s), Oral, Daily, Take 1 tablet the day before the procedure and 1 tablet after the procedure, # 6 tab(s), Refills(s) 0, Pharmacy: [facility]/pharmacy #[id number], 170, cm, 09/22/22 12:23:00 EDT, Height/Length Dosing, 78, kg, 02/24/22 10:53:00 EDT, W... Start Date: 12/31/22 Status: Ordered Start: 07-02-2022 take 1 tablet by barry th once daily Cipro 500 mg Tab 500 mg = 1 tab(s), Oral, Daily, Take 1 tablet the day before the procedure and 1 tablet after the procedure, # 6 tab(s), Refills(s) 0, Pharmacy: [facility]/pharmacy #[id number], 170, cm, 02/24/22 10:53:00 EDT, [...] # 2 tab(s), Refills(s) 0, Pharmacy: [facility]/pharmacy #[id number], 170, cm, 11/05/21 11:37:00 EDT, Height/Length Dosing, 78, kg, 11/05/21... Start Date: 11/05/21 Status: Ordered cloNIDine hydrochloride 0.1 mg oral tablet (20 sources) Central alpha-2 Adrenergic Agonist Start: 02-17-2022 End: 10-11-2023 take 1 tablet by mouth twice daily Clonidine Hcl 0.1 mg Tablet Discontinued 0.1 MG PO Twice daily February 16, 2022 11:00pm October 11, 2023 2:25pm Start: 02-17-2022 take 0.1 mg by mouth twice penny ly Clonidine Hcl Active 0.1 MG PO Twice daily February 17, 2022 12:00am Start: 02-17-2022 take 0.1 mg by mouth twice penny ly Clonidine Hcl Active 0.1 MG PO Twice daily February 17, 2022 12:00am colchicine 0.6 mg oral tablet (12 sources) Start: 02-03-2023 End: 07-26-2024 take 1 tablet by mouth once daily colchicine (COLCRYS) 0.6 mg tablet Take 0.6 mg by mouth once daily. 02/03/2023 07/26/2024 Discontinued (Discontinued by Patient) diazePAM 5 mg oral tablet (11 sources) Benzodiazepine Start: 04-19-2020 End: 10-17-2021 take 1 tablet by mouth four times daily as needed for muscle spasms Diazepam 5 mg Tablet Discontinued 5 MG PO Four times daily as needed for Muscle Spasm 40 April 18, 2020 11:00pm October 17, 2021 11:30am doxycycline hyclate 100 mg oral capsule (1 source) Tetracycline-class Drug Start: 04-12-2023 take 1 capsule by mouth twice daily doxycycline hyclate 100 mg Cap 100 mg = 1 cap(s), Oral, BID, Take 1 capsule the day before the procedure and 1 capsule after the procedure, # 2 cap(s), Refills(s) 0, Pharmacy: [facility]/pharmacy #[id number], 188, cm, 02/10/23 14:22:00 EDT, Height/Length Dosing, 82.9, kg, 02/10/23 14:22:00 EDT, Weight Dosing Start Date: 04/12/23 Status: Ordered irbesartan 300 mg oral tablet (20 sources) Angiotensin 2 Receptor Boogie Start: 10-17-2021 End: 02-06-2022 take 1 tablet by mouth once daily at bedtime Irbesartan 300 mg Tablet Discontinued 300 MG PO Daily at bedtime October 16, 2021 11:00pm February 06, 2022 1:19pm levothyroxine sodium 0.025 mg oral tablet (1 source) l-Thyroxine End: 05-08-2024 take 0.5 tablet by mouth in the morning levothyroxine (Synthroid, Levoxyl) 25 mcg tablet Take 0.5 tablets (12.5 mcg) by mouth early in the morning.. 05/08/2024 Discontinued (Therapy completed) lidocaine hydrochloride 0.02 mg/mg topical gel (6 sources) Antiarrhythmic, Amide Local Anesthetic Start: 08-02-2024 End: 08-02-2024 11 mL, OTHER, ONCE, 1 dose, On Wed08/02/24 at 1000, Intravesical administration Start: 08-12-2023 End: 10-11-2023 apply 1 dose topically once daily Lidocaine 5 % adhesive patch,medicated Discontinued 1 PATCH TOPICAL Daily August 12, 2023 12:00am October 11, 2023 2:26pm leave on most painful area for up to 12 hrs losartan potassium 100 mg oral tablet (9 sources) Angiotensin 2 Receptor Boogie Start: 02-06-2022 End: 02-17-2022 take 1 tablet by mouth once daily at bedtime Losartan 100 mg tablet Discontinued 100 MG PO Daily at bedtime February 05, 2022 11:00pm February 17, 2022 9:48am omeprazole 40 mg delayed release oral capsule (20 sources) Proton Pump Inhibitor Start: 08-22-2014 End: 10-11-2023 take 1 capsule by mouth once daily as needed for gastroesophageal reflux disease Omeprazole 40 mg Capsule,Delayed Release(Dr/Ec) Discontinued 40 MG PO Daily as needed for Heartburn August 07, 2019 12:00am October 11, 2023 2:26pm oxyCODONE hydrochloride 5 mg oral tablet (11 sources) Opioid Agonist Start: 04-19-2020 End: 10-17-2021 take 1 tablet by mouth every four to six hours as needed for pain Oxycodone 5 mg Tablet Discontinued 5 MG PO EVERY 4-6 HOURS as needed for Pain Scale 1 - 5 70 14 April 19, 2020 October 17, 2021 11:31am Problems Active Problems Problem Classification Problem Date [...] unspecified] Onset: 2 Chronic Cancer of bladder (14 sources) Personal history of malignant neoplasm of bladder; Translations: [History of malignant neoplasm of bladder] Onset: 3 Episodic Cancer of prostate (20 sources) Malignant tumor of prostate 08-22-2014 Chronic Comment on above: just had a surgery d one radical prostectomy at [facility] Cancer of prostate (20 sources) Personal history of malignant neoplasm of prostate; Translations: [History of malignant neoplasm of prostate] Onset: 2 Episodic Cancer; other and unspecified primary (6 sources) H/O: malignant neoplasm 10-04-2023 Episodic Chronic obstructive pulmonary disease and bronchiectasis (12 sources) Chronic obstructive lung disease; Translations: [Chronic obstructive pulmonary disease, unspecified] 02-03-2023 Chronic Comment on above: mild Deficiency and other anemia (9 sources) Iron deficiency anemia; Translations: [Iron deficiency anemia, unspecified] Onset: 3 Episodic Disorders of lipid metabolism (8 sources) Mixed hyperlipidemia; Translations: [Mixed hyperlipidemia] Onset: [...] steroids Immunizations and screening for infectious disease (4 sources) Infectious disease carrier; Translations: [Carrier of infectious disease, unspecified] 10-11-2023 Episodic Nonspecific chest pain (6 sources) Chest discomfort; Translations: [Other chest pain] Onset: 5 07-17-2024 Episodic Occlusion or stenosis of precerebral arteries (14 sources) Occlusion and stenosis of bilateral carotid arteries; Translations: [Occlusion and stenosis of unspecified carotid artery] Onset: 3 Chronic Osteoarthritis (5 sources) Osteoarthritis; Translations: [Osteoarthrosis, unspecified whether generalized or localized, unspecified site] Onset: 2 Chronic Other acquired deformities (20 sources) Spondylolisthesis; Translations: [Spondylolisthesis, cervical region] 04-19-2020 Episodic Comment on above: Problem List clean-u p per request of Phys. EHR Cmte Other acquired deformities (2 sources) Acquired spondylolisthesis; Translations: [Spondylolisthesis, cervical region] Episodic Other aftercare (3 sources) Other longterm (current) drug therapy; Translations: [[facility] CURRENT DRUG THERAPY] Onset: 3 Episodic Other aftercare (6 sources) Treatment changed; Translations: [Other longterm (current) drug therapy] Onset: 4 05-08-2024 Episodic Other and unspecified benign neoplasm (9 sources) History of polyp of colon; Translations: [Personal history of colonic polyps] Onset: 3 Episodic Other circulatory disease (1 source) Disorder of carotid artery; Translations: [Disorder of arteries and arterioles, unspecified] Onset: 5 07-17-2024 Chronic Other circulatory disease (20 sources) Ecchymosis 05-06-2017 [...] RS] Onset: 3 Episodic Other circulatory disease (8 sources) Unequal blood pressure in arms; Translations: [Other specified symptoms and signs involving the circulatory and respiratory systems] Onset: 4 05-08-2024 Episodic Other circulatory disease (6 sources) Carotid bruit; Translations: [Other specified symptoms and signs involving the circulatory and respiratory systems] Onset: 4 05-08-2024 Episodic Other connective tissue disease (20 sources) Impingement syndrome of shoulder region 05-06-2017 Episodic Other connective tissue disease (2 sources) Other symptoms and signs involving the nervous system Episodic Other gastrointestinal disorders (9 sources) Altered bowel function; Translations: [Change in bowel habit] Onset: 3 Episodic Other injuries and conditions due to external causes (5 sources) H/O: fracture; Translations: [Personal history of (healed) traumatic fracture] Onset: 4 05-08-2024 Episodic Other injuries and conditions due to external causes (2 sources) Personal history of (healed) traumatic fracture; Translations: [Personal history of (healed) traumatic fracture] Onset: 4 Episodic Other lower respiratory disease (1 source) Other forms of dyspnea; Translations: [OTHER FORMS OF DYSPNEA] Onset: 3 Episodic Other lower respiratory disease (14 sources) Dyspnea; Translations: [Shortness of breath] Onset: 4 05-08-2024 Episodic Other lower respiratory disease (2 sources) Shortness of breath; Translations: [Shortness of breath] Onset: 4 Episodic Other male genital disorders (5 sources) Secondary erectile dysfunction; Translations: [Erectile dysfunction [...] Episodic Other nutritional; endocrine; and metabolic disorders (6 sources) Overweight in adulthood with body mass index of 25 or more but less than 30; Translations: [Body mass index (BMI) 25.0-25.9, adult] Onset: 4 05-08-2024 Episodic Other nutritional; endocrine; and metabolic disorders (2 sources) Body mass index (BMI) 26.0-26.9, adult; Translations: [Body mass index (BMI) 26.0-26.9, adult] Onset: 5 Episodic Other nutritional; endocrine; and metabolic disorders [...] of mental health and substance abuse codes (14 sources) Personal history of nicotine dependence; Translations: [Ex-smoker] Onset: 3 05-08-2024 Episodic Septicemia (except in labor) (1 source) Sepsis, unspecified organism; Translations: [SEPSIS UNSPECIFIED ORGANISM] Onset: 3 Episodic Spondylosis; intervertebral disc disorders; other back problems (14 sources) Degeneration of cervical intervertebral disc; Translations: [Other cervical disc degeneration, unspecified cervical region] Onset: 3 Chronic Unclassified (3 sources) LOW BACK PAIN, UNSPECIFIED; Translations: [LOW BACK PAIN, UNSPECIFIED] Onset: 3 Unclassified (2 sources) COUGH, UNSPECIFIED; Translations: [COUGH, UNSPECIFIED] Onset: 3 Unclassified (1 source) CONTACT W/AND (SUSP) EXPOS COVID-19; Translations: [CONTACT W/AND (SUSP) EXPOS COVID-19] Onset: 3 Unclassified (8 sources) Body mass index 20-24 - normal [...] [PAIN IN RIGHT KNEE] Onset: 06-30-2022 Episodic Spondylosis; intervertebral disc disorders; other back problems (20 sources) Chronic low back pain; Translations: [Low back pain, unspecified] Onset: 08-12-2023 08-12-2023 Episodic Unclassified (3 sources) Low back pain, unspecified M54.50 Unclassified (1 source) LOW BACK PAIN, UNSPECIFIED; Translations: [LOW BACK PAIN, UNSPECIFIED] Onset: 10-23-2022 Unclassified (1 source) COUGH, UNSPECIFIED; Translations: [COUGH, UNSPECIFIED] Onset: 10-05-2022 Unclassified (4 sources) Onset: 05-08-2024 05-08-2024 Urinary tract infections (4 sources) Urinary tract infection, site not specified; Translations: [UTI SITE NOT SPECIFIED] Onset: 03-12-2022 Episodic Results Test Name Value Interpretation Reference Range Facility [facility] 08-02-2024 [facility] Nurse Visit (HEMASA) MARY DIAZ ([id number]) 1950 M [employer] [facility] Date Time Provider Department 08/02/24 9:00 AM [place] NURSE ENRIQUE TAY During your visit today, we recorded the following information about you: Santosh Del Rio MA 08/02/2024 8:51 AM Signed UA performed as ordered. Santosh Del Rio MA Referring Provider: NORBERTO ANDRADE [[id number]] Allergies As of Date: 08/02/2024 Noted Allergy Reaction CODEINE 03/30/2017 2 - Rash Comments: Agitation, Doesn't work Date Reviewed: 08/02/2024 Reviewed by: Santosh Del Rio MA - Fully Assessed Primary Visit Diagnosis:Malignant neoplasm of urinary bladder, unspecified site (HCC) [C67.9] Order(s):UA DIP, URINE (POC) [[id number]] Order #: [id number] #:[id number] Prescriptions as of 08/02/2024 - doxazosin (CARDURA) 1 mg tablet Take 1 mg by mouth. - methocarbamol 1,000 mg tablet Take 1,000 mg by mouth as needed (bedtime prn). - mv-min/folic/K1/lyco pen/lutein (MEN 50 PLUS MULTIVITAMIN ORAL) Take 1 tablet by mouth once daily. - lisinopril (ZESTRIL) 20 mg tablet Take 20 mg by mouth once daily. - lisinopril-hydroCHLO ROthiazide (ZESTORETIC) 20-12.5 mg per tablet Take 1 tablet by mouth once daily. - diclofenac, EC, (VOLTAREN) 75 mg EC tablet Take 75 mg by mouth two times a day. - liothyronine (CYTOMEL) 25 mcg tablet Take 25 mcg by mouth once daily. Takes 1/2 - pantoprazole DR (PROTONIX) 40 mg tablet Take 40 mg by mouth once daily. - sildenafil (VIAGRA) 100 mg tablet Take 100 mg by mouth as needed. - fluticasone-umeclidi n-vilanter (TRELEGY ELLIPTA) 100-62.5-25 mcg inhalation powder Inhale 1 Puff as instructed once daily. Problem List As Of Date 08/02/2024 Noted Resolved Bladder cancer (HCC) [C67.9] 07/26/2024 Encounter Status:Closed by SANTOSH DEL RIO on 08/02/24 [facility] CNOVSPon 08-02-2024 CNOVSP Visit (SP) Office (HEMASA) MARY DIAZ ([id number]) 1950 [facility] Date Time Provider Department 08/02/24 8:30 AM NORBERTO ANDRADE During your visit today, we recorded the following information about you: Temperature Pulse Respiration Blood pressure 97.5 degrees 80/minute 18/minute 131/79 Weight 88.5 kg Norberto Andrade MD 08/02/2024 9:15 AM Signed PATIENT NAME: Mary Diaz CLINIC NO.: [id number] ATTENDING PHYSICIAN: Norberto Andrade MD DATE OF SERVICE: 08/02/[address] Lionel Whitney [address] [facility] [address] thank you for referring Mary Diaz for an opinion regarding non muscle invasive bladder cancer. Some of the elements of this note have been copied from my previous progress note dated 07/19/24 . All the information has been reviewed carefully. CHIEF COMPLAINT: Bladder cancer HPI: Mary Diaz is a 74 year old year old male with h/o prostate cancer, skin cancer, HTN. Initially diagnosed with bladder cancer in October 2021. S/p TURBT with intravesical mitomycin. He was getting surveillance cystoscopy every 6 months. Cystoscopy on 07/06/24 - TURBT measuring approx 4cm. Final path showed a small focus of borderline high grade papillary urothelial carcinoma in atleast 1 fragment without obvious stromal invasion (gag writer). 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 Urology recommended induction BCG x 6 treatments. H/o prostate cancer s/p radical prostatectomy in 08/2014. No smoking Occasional alcohol Doing well No major complaints. 08/02/24: - Doing well - No major complaints - C/o left hip pain - Doing intraarticular steroid injection next week on Wednesday. Current Outpatient Medications Medication Sig methocarbamol 1,000 mg tablet Take 1,000 mg by mouth as needed (bedtime prn). mv-min/folic/K1/lyco pen/lutein (MEN 50 PLUS MULTIVITAMIN ORAL) Take 1 tablet by mouth once daily. lisinopril (ZESTRIL) 20 mg tablet Take 20 mg by mouth once daily. lisinopril-hydroCHLO ROthiazide (ZESTORETIC) 20-12.5 mg per tablet Take 1 tablet by mouth once daily. diclofenac, EC, (VOLTAREN) 75 mg EC tablet Take 75 mg by mouth two times a day. liothyronine (CYTOMEL) 25 mcg tablet Take 25 mcg by mouth once daily. Takes 1/[address] (PROTONIX) 40 mg tablet Take 40 mg by mouth once daily. sildenafil (VIAGRA) 100 mg tablet Take 100 mg by mouth as needed. fluticasone-umeclidi n-vilanter (TRELEGY ELLIPTA) 100-62.5-25 mcg inhalation powder Inhale 1 Puff as instructed once daily. No current facility-administere d medications for this visit. ALLERGIES Allergen Reactions Codeine Rash Agitation, Doesn't work PAST MEDICAL HISTORY Diagnosis Date Anemia Arthritis Bladder cancer (HCC) GERD (gastroesophageal reflux disease) History of colonic polyps Hypertension Impotence Kidney stones Prostate cancer (HCC) Spondylosis PAST SURGICAL HISTORY Procedure Laterality Date APPENDECTOMY COLONOSCOPY 05/2014 CYSTOSCOPY 04/27/2023 OPEN REPAIR OF ROTATOR CUFF ACUTE PAST SURGICAL HISTORY OF Transurethral resection of bladder tumor x4 PAST SURGICAL HISTORY OF Cystourethroscopy with dilation of urethral stricture PAST SURGICAL HISTORY OF Repair of umbilical hernia PAST SURGICAL HISTORY OF Arthroscopy of shoulder PAST SURGICAL HISTORY OF Arthroscopy of knee PAST SURGICAL HISTORY OF Cervical Vertebral fusion RADICAL PROSTATECTOMY 08/2014 SHOULDER SURGERY HX Reconstruction FAMILY HISTORY Problem Relation Age of Onset other (Type 2 diabetes) Father Hypertension Father Social History Tobacco Use Smoking status: Former Types: Cigarettes Smokeless tobacco: Never Substance Use Topics Alcohol use: Yes Drug use: Never REVIEW OF SYSTEMS GENERAL: No weight loss, malaise or fevers. No night sweats. HEENT: Negative for headaches, No changes in hearing or vision, no nose bleeds or other nasal problems. RESPIRATORY: Negative for cough, wheezing and shortness of breath CARDIOVASCULAR: Negative for chest pain, leg swelling and palpitations GI: Negative for abdominal discomfort, blood in stools or black stools and change in bowel habits : Negative for dysuria, frequency and incontinence MUSCULOSKELETAL: Negative for joint pain or swelling, back pain, and muscle pain. SKIN: Negative for lesions, rash, and itching. HEMATOLOGY/LYMPHOLOG Y Negative for prolonged bleeding, bruising easily, and swollen nodes. NEURO: Negative for numbness or tingling of hands/feet. No weakness. PHYSICAL EXAMINATION: There were no vitals taken for this visit. There were no vitals taken for this visit. No data found for this vital: Wt General appearance:ECOG PERFORMANCE STATUS: 0- Fully active, able to carry on all pre-disease performance w/o restriction. Patient in NAD. Skin: Skin color, texture, turgor normal. No rashes or lesions. Eyes: Anic (more content not included)... Normal [facility] UA DIP, URINE (POC)on 2024 BILIRUBIN UA (POCT) Negative Negative [facility] CLARITY UA (POCT) Clear [facility] COLOR UA (POCT) Yellow [facility] GLUCOSE UA (POCT) Negative Negative mg/dL [facility] Hemoglobin Ql (U) Small Abnormal Negative [facility] Interpretation and review of laboratory results Abnormal [facility] KETONE UA (POCT) Negative Negative mg/dL [facility] LEUKOCYTES UA (POCT) Small Abnormal Negative [facility] NITRITE UA (POCT) Negative Negative [facility] PH UA (POCT) 5.5 4.5 - 8.0 [facility] Protein Ql (U) Trace Abnormal Negative mg/dL [facility] SPECIFIC GRAVITY UA (POCT) 1.02 1.005 - 1.030 [facility] UROBILINOGEN UA (POCT) 0.2 Ann l E.U./dL [facility] Location:[facility], [address] [place] [address] Dr. [place], [place], [address] [facility] POINT OF CARE [facility] CNPGely 08-01-2024 CNPN Telephone (HEMAMS) MARY DIAZ ([id number]) 1950 Sue [facility] Date Time Provider Department 08/01/24 FINANCIAL NAVIGATOR ENRIQUE QUINONES During your visit today, we recorded the following information about you: Esther Patterson 08/01/2024 12:10 PM Signed Spoke with patient over the phone today. Patient is active with [employer], LOC 80%, $0 deductible has $0 remaining, $3500 OOP has $3400 remaining. Estimate shows patient financial responsibility is $134.16 for each treatment in 2024 until oop max is reached. Patient stated understanding. Reference #[id number]. There is currently no Bladder funding available, but will add him to my wait list. MyCost completed over the phone. He was very appreciative of my phone call. Allergies As of Date: 08/01/2024 Noted Allergy Reaction CODEINE 03/30/2017 2 - Rash Comments: Agitation, Doesn't work Date Reviewed: 07/19/2024 Reviewed by: Suzanna Waters MA - Fully Assessed Reason for Visit: Benefits Investigation [7703] Cmt: Good Day Mary, I am your Financial Navigator, Esther. I wanted to reach out and introduce myself. I welcome the opportunity to meet with you as I can answer questions related to your health plan and any expected out of pocket costs while you are in treatment. You will also find a survey attached to this message that can help me better serve your financial needs. You can complete this at your earliest convenience. Please feel free to stop in or call [phone] for any questions you may have. Prescriptions as of 08/01/2024 - methocarbamol 1,000 mg tablet Take 1,000 mg by mouth as needed (bedtime prn). - mv-min/folic/K1/lyco pen/lutein (MEN 50 PLUS MULTIVITAMIN ORAL) Take 1 tablet by mouth once daily. - lisinopril (ZESTRIL) 20 mg tablet Take 20 mg by mouth once daily. - lisinopril-hydroCHLO ROthiazide (ZESTORETIC) 20-12.5 mg per tablet Take 1 tablet by mouth once daily. - diclofenac, EC, (VOLTAREN) 75 mg EC tablet Take 75 mg by mouth two times a day. - liothyronine (CYTOMEL) 25 mcg tablet Take 25 mcg by mouth once daily. Takes 1/2 - pantoprazole DR (PROTONIX) 40 mg tablet Take 40 mg by mouth once daily. - sildenafil (VIAGRA) 100 mg tablet Take 100 mg by mouth as needed. - fluticasone-umeclidi n-vilanter (TRELEGY ELLIPTA) 100-62.5-25 mcg inhalation powder Inhale 1 Puff as instructed once daily. Problem List As Of Date 08/01/2024 Noted Resolved Bladder cancer (HCC) [C67.9] 07/26/2024 Encounter Status:Closed by ESTHER PATTERSON on 08/01/24 Normal [facility] CBC W Auto Differential pane l (Bld)on 07-26-2024 Basophils (Bld) [#/Vol] 10*3/uL Normal <0.11 [facility] Comment on above: Order Comment: Speci men Type: BLOOD SPECIMEN Ordering Facility: [facility] Address: [address] [place] [address] Performed By: #### 5 7021-8 #### [facility] CLIA [id number] [address] [place] [address] Basophils/100 WBC (Bld) 0.3 % Normal [facility] Comment on above: Order Comment: Speci men Type: BLOOD SPECIMEN Ordering Facility: [facility] Address: [address] [place] [address] Performed By: #### 5 7021-8 #### [facility] CLIA [id number] [address] [place] [address] Differential cell count method Nom (Bld) Auto Normal [facility] Comment on above: Order Comment: Speci men Type: BLOOD SPECIMEN Ordering Facility: [facility] Address: [address] [place] [address] Performed By: #### 5 7021-8 #### [facility] CLIA [id number] [address] [place] [address] Eosinophils (Bld) [#/Vol] 0.13 10*3/uL Normal <0.46 [facility] Comment on above: Order Comment: Speci men Type: BLOOD SPECIMEN Ordering Facility: [facility] Address: [address] [place] [address] Performed By: #### 5 7021-8 #### [facility] CLIA [id number] [address] [place] [address] Eosinophils/100 WBC (Bld) 1.9 % Normal [facility] Comment on above: Order Comment: Speci men Type: BLOOD SPECIMEN Ordering Facility: [facility] Address: [address] [place] [address] Performed By: #### 5 7021-8 #### [facility] CLIA [id number] [address] [place] [address] Erythrocyte distribution width (RBC) [Ratio] 13.9 % Normal 11.5-15.0 [facility] Comment on above: Order Comment: Speci men Type: BLOOD SPECIMEN Ordering Facility: [facility] Address: [address] [place] [address] Performed By: #### 5 7021-8 #### [facility] CLIA [id number] [address] [place] [address] Hematocrit (Bld) [Volume fraction] 36.5 % Low 39.0-51.0 [facility] Comment on above: Order Comment: Speci men Type: BLOOD SPECIMEN Ordering Facility: [facility] Address: [address] [place] [address] Performed By: #### 5 7021-8 #### [facility] CLIA [id number] [address] [place] [address] Hemoglobin (Bld) [Mass/Vol] 12.4 g/dL Low 13.0-17.0 [facility] Comment on above: Order Comment: Speci men Type: BLOOD SPECIMEN Ordering Facility: [facility] Address: [address] [place] [address] Performed By: #### 5 7021-8 #### [facility] CLIA [id number] [address] [place] [address] Immature granulocytes (Bld) [#/Vol] 0.05 10*3/uL Normal <0.10 [facility] Comment on above: Order Comment: Speci men Type: BLOOD SPECIMEN Ordering Facility: [facility] Address: [address] [place] [address] Performed By: #### 5 7021-8 #### [facility] CLIA [id number] [address] [place] [address]774 Immature granulocytes/100 WBC (Bld) 0.7 % Normal [facility] Comment on above: Order Comment: Speci men Type: BLOOD SPECIMEN Ordering Facility: [facility] Address: [address] [place] [address] Performed By: #### 5 7021-8 #### [facility] CLIA [id number] [address] [place] [address]65 Lymphocytes (Bld) [#/Vol] 1.40 10*3/uL Normal 1.00-4.00 [facility] Comment on above: Order Comment: Speci men Type: BLOOD SPECIMEN Ordering Facility: [facility] Address: [address] [place] [address] Performed By: #### 5 7021-8 #### [facility] CLIA [id number] [address] [place] [address]047 Lymphocytes/100 WBC (Bld) 20.7 % Normal [facility] Comment on above: Order Comment: Speci men Type: BLOOD SPECIMEN Ordering Facility: [facility] Address: [address] [place] [address] Performed By: #### 5 7021-8 #### [facility] CLIA [id number] [address] [place] [address]2465 MCH (RBC) [Entitic mass] 31.2 pg Normal 26.0-34.0 [facility] Comment on above: Order Comment: Speci men Type: BLOOD SPECIMEN Ordering Facility: [facility] Address: [address] [place] [address] Performed By: #### 5 7021-8 #### [facility] CLIA [id number] [address] [place] [address]697 MCHC (RBC) [Mass/Vol] 34.0 g/dL Normal 30.5-36.0 [facility] Comment on above: Order Comment: Speci men Type: BLOOD SPECIMEN Ordering Facility: [facility] Address: [address] [place] [address] Performed By: #### 5 7021-8 #### [facility] CLIA [id number] [address] [place] [address]31 MCV (RBC) [Entitic vol] 91.7 fL Normal 80.0-100.0 [facility] Comment on above: Order Comment: Speci men Type: BLOOD SPECIMEN Ordering Facility: [facility] Address: [address] [place] [address] Performed By: #### 5 7021-8 #### [facility] CLIA [id number] [address] [place] [address]23 Monocytes (Bld) [#/Vol] 0.62 10*3/uL Normal <0.87 [facility] Comment on above: Order Comment: Speci men Type: BLOOD SPECIMEN Ordering Facility: [facility] Address: [address] [place] [address] Performed By: #### 5 7021-8 #### [facility] CLIA [id number] [address] [place] [address] Monocytes/100 WBC (Bld) 9.2 % Normal [facility] Comment on above: Order Comment: Speci men Type: BLOOD SPECIMEN Ordering Facility: [facility] Address: [address] [place] [address] Performed By: #### 5 7021-8 #### [facility] CLIA [id number] [address] [place] [address]96 Neutrophils (Bld) [#/Vol] 4.54 10*3/uL Normal 1.45-7.50 [facility] Comment on above: Order Comment: Speci men Type: BLOOD SPECIMEN Ordering Facility: [facility] Address: [address] [place] [address] Performed By: #### 5 7021-8 #### [facility] CLIA [id number] [address] [place] [address]1010 Neutrophils/100 WBC (Bld) 67.2 % Normal [facility] Comment on above: Order Comment: Speci men Type: BLOOD SPECIMEN Ordering Facility: [facility] Address: [address] [place] [address] Performed By: #### 5 7021-8 #### [facility] CLIA [id number] [address] [place] [address] 32910 Nucleated RBC (Bld) [#/Vol] 10*3/uL Normal <0.01 [facility] Comment on above: Order Comment: Speci men Type: BLOOD SPECIMEN Ordering Facility: [facility] Address: [address] [place] [address] Performed By: #### 5 7021-8 #### [facility] CLIA [id number] [address] [place] [address] 70600 Nucleated RBC/100 WBC (Bld) [Ratio] 0.0 /100 WBC Normal [facility] Comment on above: Order Comment: Speci men Type: BLOOD SPECIMEN Ordering Facility: [facility] Address: [address] [place] [address] Performed By: #### 5 7021-8 #### [facility] CLIA [id number] [address] [place] [address] Platelet mean volume (Bld) [Entitic vol] 9.4 fL Normal 9.0-12.7 [facility] Comment on above: Order Comment: Speci men Type: BLOOD SPECIMEN Ordering Facility: [facility] Address: [address] [place], [place] [address] Performed By: #### 5 7021-8 #### [facility] CLIA [id number] [address] [place] [address]32[address] Platelets (Bld) [#/Vol] 209 10*3/uL Normal 150-400 [facility] Comment on above: Order Comment: Speci men Type: BLOOD SPECIMEN Ordering Facility: [facility] Address: [address] [place] [address] Performed By: #### 5 7021-8 #### [facility] CLIA [id number] [address] [place] [address]34 RBC (Bld) [#/Vol] 3.98 10*6/uL Low 4.20-6.00 [facility] Comment on above: Order Comment: Speci men Type: BLOOD SPECIMEN Ordering Facility: [facility] Address: [address] [place] [address] Performed By: #### 5 7021-8 #### [facility] CLIA [id number] [address] [place] [address] WBC (Bld) [#/Vol] 6.76 10*3/uL Normal 3.70-11.00 [facility] Comment on above: Order Comment: Speci men Type: BLOOD SPECIMEN Ordering Facility: [facility] Address: [address] [place] [address] Performed By: #### 5 7021-8 #### [facility] CLIA [id number] [address] [place] [address] CNNURSEon 07-26-2024 CNNURSE Nurse Visit (HEMASA) MARY DIAZ ([id number]) 1950 [facility] Date Time Provider Department 07/26/24 11:00 AM INGRID UGALDE During your visit today, we recorded the following information about you: Ingrid Ugalde, RN 07/26/2024 12:52 PM Signed ONCOLOGY PATIENT EDUCATION NOTE TOPIC: Chemotherapy, Medications: BCG patient here today for education for treatment of Bladder Cancer Anticipated/Schedule d start date: 08/02/24 READINESS TO LEARN: COGNITIVE ABILITY: Alert and oriented MOTIVATION TO LEARN: Interested FAMILY SUPPORT: High - Very involved in pt care INSTRUCTION PROVIDED TO: Patient INSTRUCTION PROVIDED BY: Nurse Coordinator PATIENT LEARNS BEST BY: Multiple Methods FACTORS AFFECTING LEARNING: None PHYSICAL LIMITATIONS AFFECTING LEARNING: None LEARNING RESPONSE METHOD OF INSTRUCTION: Individual instruction Written instruction/Handouts Verbal instruction PATIENT/FAMILY RESPONSE: Verbalizes understanding of: CHEMOTHERAPY-Regimen , toxicity and side effects INFECTION MANAGEMENT-Signs and symptoms of an infection and importance of contacting the physician MEDICAL REGIMEN-Importance of following prescribed medical regimen MEDICATION PRESCRIBED-Accurate knowledge of prescribed medication prior to discharge MEDICATION ROUTE-Correct route for administration of the prescribed medication MEDICATION SIDE EFFECTS-Side effects associated with the medication that warrant a call to the physician PATIENT SAFETY PRINCIPLES SYMPTOM MANAGEMENT-Correct actions to take to manage symptoms associated with his/her disease/illness WORSENING CONDITION-Signs and symptoms of a worsening condition that warrant a call to the physician Information received as demonstrated by interest and questions FOLLOW UP PLAN: Patient instructed to call with any further issues Recommend - Recommend continued instruction and follow up as directed Follow up phone call. Contact information given. SUPPLEMENTAL MATERIAL: Written material was provided at this visit with the following information: - Chemotherapy education was provided by a pharmacist NO - Side effect management information was provided/discussed including but not limited to: abdominal discomfort, anemia, appetite changes, bowel habit changes, chest pain, diet, electrolyte disturbances, fatigue, hypersensitivity reaction, infection, kidney toxicity, nausea/vomitting, neutropenia, rash, shortness of breath, skin changes, thrombocytopenia, hematuria, bladder inflammation, bladder spasms, UTI s/s YES - Provided important phone numbers and contacts during and after hours. YES - Provided information on symptoms that require immediate assistance. YES - Provided Chemotherapy when to call handouts YES - Preventing infection. YES - Treatment schedule and confirmation of appointment times. YES - Available support groups. NA - The importance of contraception during the course of chemotherapy NA - Neutropenic fever protocol discussed with patient, which included the importance of reporting any fever of 100.4F (38.0C) or greater to the healthcare team as noted on the provided wallet card and/or magnet. YES - Cancer Wellness Program Pamphlet. YES - [facility] Jorge A Information. YES - Patient services information. YES - My Journey binder given to pt. Time Spent: 30 minutes REFERRAL (RECOMMENDATION): N/A Ingrid Ugalde, RN Traffic Representative Pre Chemo Patient identified by name and date of . YES Confirmed date and time for chemotherapy ? YES Other appointments (labs, imaging) discussed? YES Discussed where to park (rural carrier associate), charge for parking NO Discussed where to report (building/floor) NO Any pre-medications ordered? NO Described the infusion room and what to expect. (What to wear, what to bring [iPad, books] amount of time treatment can take, meals and CC options for food) YES Discussed whether the patient can eat prior to labs and treatment. YES Who is driving you to and from treatment? self Discussed why it is important to bring someone with you. No Resources discussed (music therapy, Art therapy, pet therapy, etc.) YES Education on chemotherapy (drug, side effects) discussed and that the patient will be receiving a C1D1 call within 7 days of treatment. YES Other topics discussed, interventions needed: pt has had intervesicular mitomycin in the past Ingrid Ugalde, NATHALIE Referring Provider: NORBERTO ANDRADE [[id number]] Allergies As of Date: 07/26/2024 Noted Allergy Reaction CODEINE 03/30/2017 2 - Rash Comments: Agitation, Doesn't work Date Reviewed: 07/19/2024 Reviewed by: Suzanna Waters MA - Fully Assessed Reason for Visit: First Time Treatment Education [2929] Primary Visit Diagnosis:Malignant neoplasm of urinary bladder, unspecified site (HCC) [C67.9] Prescriptions as of 07/26/2024 - methocarbamol 1, (more content not included)... Normal [facility] Comprehensive metabolic 2000 panelon 07-26-2024 Albumin [Mass/Vol] 4.2 g/dL Normal 3.9-4.9 [facility] Comment on above: Order Comment: Speci men Type: BLOOD SPECIMEN Ordering Facility: [facility] Address: [address] [place] [address] Performed By: #### 2 4323-8 #### [facility] CLIA [id number] [address] [place] [address] ALP [Catalytic activity/Vol] 55 U/L Normal 38-113 [facility] Comment on above: Order Comment: Speci men Type: BLOOD SPECIMEN Ordering Facility: [facility] Address: [address] [place] [address] Performed By: #### 2 4323-8 #### [facility] CLIA [id number] [address] [place] [address] ALT [Catalytic activity/Vol] 17 U/L Normal 10-54 [facility] Comment on above: Order Comment: Speci men Type: BLOOD SPECIMEN Ordering Facility: [facility] Address: [address] [place] [address] Performed By: #### 2 4323-8 #### [facility] CLIA [id number] [address] [place] [address] Anion gap [Moles/Vol] 8 mmol/L Normal 8-15 [facility] Comment on above: Order Comment: Speci men Type: BLOOD SPECIMEN Ordering Facility: [facility] Address: [facility] [place] [address] Performed By: #### 2 4323-8 #### [facility] CLIA [id number] [address] [place] [address] AST [Catalytic activity/Vol] 14 U/L Normal 14-40 [facility] Comment on above: Order Comment: Speci men Type: BLOOD SPECIMEN Ordering Facility: [facility] Address: [address] [place] [address] Performed By: #### 2 4323-8 #### [facility] CLIA [id number] [address] [place] [address] Bilirubin [Mass/Vol] 0.5 mg/dL Normal 0.2-1.3 [facility] Comment on above: Order Comment: Speci men Type: BLOOD SPECIMEN Ordering Facility: [facility] Address: [address] [place] [id number] Performed By: #### 2 4323-8 #### [facility] CLIA [id number] [address] [place] [address] Calcium [Mass/Vol] 9.5 mg/dL Normal 8.5-10.2 [facility] Comment on above: Order Comment: Speci men Type: BLOOD SPECIMEN Ordering Facility: [facility] Address: [address] [place] [address] Performed By: #### 2 4323-8 #### [facility] CLIA [id number] [address] [place] [address] Chloride [Moles/Vol] 101 mmol/L Normal 98-107 [facility] Comment on above: Order Comment: Speci men Type: BLOOD SPECIMEN Ordering Facility: [facility] Address: [address] [place] [id number] Performed By: #### 2 4323-8 #### [facility] CLIA [id number] [address] [place] [address] CO2 [Moles/Vol] 26 mmol/L Normal 22-30 [facility] Comment on above: Order Comment: Speci men Type: BLOOD SPECIMEN Ordering Facility: [facility] Address: [address] [place], [place] [address] Performed By: #### 2 4323-8 #### [facility] CLIA [id number] [address] [place] [address] Creatinine [Mass/Vol] 1.31 mg/dL High 0.73-1.22 [facility] Comment on above: Order Comment: Manoj conner Type: BLOOD SPECIMEN Ordering Facility: [facility] Address: [address] [place] [address] Performed By: #### 2 4323-8 #### [facility] CLIA [id number] [address] [place] [address] Creatinine and Glomerular filtration rate.predicted panel (S/P/Bld) 57 mL/min/1.73m??? Low >=60 [facility] Comment on above: Order Comment: Manoj conner Type: BLOOD SPECIMEN Ordering Facility: [facility] Address: [address] [place], [place] [id number] Result Comment: Emely mated Glomerular Filtration Rate (eGFR) is calculated using the 2020 CKD-EPI creatinine equation. This equation utilizes serum creatinine, sex, and age as parameters. The creatinine assay has traceable calibration to isotope dilution-mass spectrometry. Refer to KDIGO guidelines for clinical interpretation. In patients with unstable renal function, e.g. those with acute kidney injury, the eGFR may not accurately reflect actual GFR. Performed By: #### 2 4323-8 #### [facility] CLIA [id number] [address] [place] [address] Glucose [Mass/Vol] 108 mg/dL High 74-99 [facility] Comment on above: Order Comment: Manoj conner Type: BLOOD SPECIMEN Ordering Facility: [facility] Address: [address] [place] [address] Result Comment: The [place] [employer] (ADA) provides guidance for cutoff values for fasting glucose and random glucose. The ADA defines fasting as no caloric intake for at least 8 hours. Fasting plasma glucose results between 100 to 125 mg/dL indicate increased risk for diabetes (prediabetes). Fasting plasma glucose results greater than or equal to 126 mg/dL meet the criteria for diagnosis of diabetes. In the absence of unequivocal hyperglycemia, results should be confirmed by repeat testing. In a patient with classic symptoms of hyperglycemia or hyperglycemic crisis, random plasma glucose results greater than or equal to 200 mg/dL meet the criteria for diagnosis of diabetes. Reference: Standards of Medical Care in Diabetes 2016, [place] [employer] Association. Diabetes Care. 2016.39(Suppl 1). Performed By: #### 2 4323-8 #### [facility] CLIA [id number] [address] [place] [address] Potassium [Moles/Vol] 4.5 mmol/L Normal 3.7-5.1 [facility] Comment on above: Order Comment: Speci men Type: BLOOD SPECIMEN Ordering Facility: [facility] Address: [address] [place] [address] Performed By: #### 2 4323-8 #### [facility] CLIA [id number] [address] [place] [address] Protein [Mass/Vol] 6.2 g/dL Low 6.3-8.0 [facility] Comment on above: Order Comment: Speci men Type: BLOOD SPECIMEN Ordering Facility: [facility] Address: [address] [place] [address] Performed By: #### 2 4323-8 #### [facility] CLIA [id number] [address] [place] [address] Sodium [Moles/Vol] 135 mmol/L Low 136-144 [facility] Comment on above: Order Comment: Speci men Type: BLOOD SPECIMEN Ordering Facility: [facility] Address: [address] [place] [address] Performed By: #### 2 4323-8 #### [facility] CLIA [id number] [address] [place] [address] Urea nitrogen [Mass/Vol] 17 mg/dL Normal 9-24 [facility] Comment on above: Order Comment: Speci men Type: BLOOD SPECIMEN Ordering Facility: [facility] Address: [address] [place], [place] [address] Performed By: #### 2 4323-8 #### [facility] CLIA [id number] [address] [place] [address] CNOVSPon 07-19-2024 CNOVSP Visit (SP) Office ([place]) MARY DIAZ ([id number]) 1950 [facility] Date Time Provider Department 07/19/24 11:00 AM NORBERTO ANDRADE During your visit today, we recorded the following information about you: Temperature Pulse Respiration Blood pressure 97.2 degrees 81/minute 18/minute 121/74 Weight 86.7 kg Norberto Andrade MD 07/19/2024 11:42 AM Signed PATIENT NAME: Mary Diaz CLINIC NO.: [id number] ATTENDING PHYSICIAN: Norberto Andrade MD DATE OF SERVICE: July 19, [address] Lionel Whitney [address] [facility] [address] thank you for referring Mary Diaz for an opinion regarding non muscle invasive bladder cancer. CHIEF COMPLAINT: Bladder cancer HPI: Mary Diaz is a 74 year old year old male with h/o prostate cancer, skin cancer, HTN. Initially diagnosed with bladder cancer in October 2021. S/p TURBT with intravesical mitomycin. He was getting surveillance cystoscopy every 6 months. Cystoscopy on 07/06/24 - TURBT measuring approx 4cm. Final path showed a small focus of borderline high grade papillary urothelial carcinoma in atleast 1 fragment without obvious stromal invasion (gag writer). 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 Urology recommended induction BCG x 6 treatments. H/o prostate cancer s/p radical prostatectomy in 08/2014. No smoking Occasional alcohol Doing well No major complaints No current outpatient medications on file. No current facility-administere d medications for this visit. ALLERGIES Not on File No past medical history on file. No past surgical history on file. No family history on file. REVIEW OF SYSTEMS GENERAL: No weight loss, malaise or fevers. No night sweats. HEENT: Negative for headaches, No changes in hearing or vision, no nose bleeds or other nasal problems. RESPIRATORY: Negative for cough, wheezing and shortness of breath CARDIOVASCULAR: Negative for chest pain, leg swelling and palpitations GI: Negative for abdominal discomfort, blood in stools or black stools and change in bowel habits : Negative for dysuria, frequency and incontinence MUSCULOSKELETAL: Negative for joint pain or swelling, back pain, and muscle pain. SKIN: Negative for lesions, rash, and itching. HEMATOLOGY/LYMPHOLOG Y Negative for prolonged bleeding, bruising easily, and swollen nodes. NEURO: Negative for numbness or tingling of hands/feet. No weakness. PHYSICAL EXAMINATION: There were no vitals taken for this visit. There were no vitals taken for this visit. No data found for this vital: Wt General appearance:ECOG PERFORMANCE STATUS: 0- Fully active, able to carry on all pre-disease performance w/o restriction. Patient in NAD. Skin: Skin color, texture, turgor normal. No rashes or lesions. Eyes: Anicteric sclera. Pupils are equally round and reactive to light. Extraocular movements are intact. Breast: No palpable breast masses. No nipple change or discharge. Lymph Nodes: No cervical, supraclavicular, axillary or inguinal adenopathy. Oropharynx: Lips, mucosa, and tongue normal. Back: No pain to percussion. Negative SLR test Lungs clear to auscultation, No wheezing or rhonchi Heart: RRR without murmur, gallop, or rubs. Abdomen soft, non-tender. No masses, organomegaly Extremities: No deformities. No edema Neuro: Gait and speech normal. Reflexes normal and symmetric. Muscular strength intact. Sensation grossly intact. Rectal: Deferred : Deferred LABS: No results found for: GLUC , K , NA , CHLOR , CO2 , CREAT , BUN , ANION , CA , TPROT , ALB , TBILI , ALKPHOS , AST , ALT No results found for: WBC , RBC , HB , HCT , MCV , MCH , MCHC , RDWCV , PLT , MPV , NEUT , ABSNEUT , LYMPHP , ABSLYMPH , MONOP , ABSMONO , EOSINP , ABSEOSIN , BASOP , ABSBASO PATH: IMAGING: ASSESSMENT AND PLAN: Mary Diaz is a 74 year old year old male referred to us for non muscle invasive bladder cancer. H/o prostate cancer s/p radical prostatectomy in 08/2014 PLAN: - Initially diagnosed with bladder cancer in October 2021. S/p TURBT with intravesical mitomycin. He was getting surveillance cystoscopy every 6 months. - Cystoscopy on 07/06/24 - TURBT measuring approx 4cm. Final path showed a small focus of borderline high grade papillary urothelial carcinoma in atleast 1 fragment without obvious stromal invasion (gag writer). 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 - Urology recommended induction BCG x 6 treatments. - We will start him on weekly BCG treatments after 2 weeks from today - Check CBC CMP - All his questions answered in detail - F/u in [address] Lionel Whitney [address] [place] [address] thank you for allowing me to participate in Mary Diaz care, if there are any questions or concerns please do not hesitate to contact me at the number below. I spent a total of 60 pawan (more content not included)... Normal [facility] Ambulatory Visit Summaryon 0 07-12-2024 Ambulatory Visit Summary Ambulatory Visit Summary MARY DIAZ :1950 Visit Date:07/12/2024 Ambulatory Visit Instructions Your Diagnosis Bladder cancer History of prostate cancer History of kidney stones Impotence Your Care Team Attending Physician - DEVONTE NOBLE, Lionel Burgos Primary Care Physician - Deandre Monterroso MD This Is Your Medications List sildenafil (sildenafil 100 mg Tab) Contact prescribing physician if questions or concerns amlodipine (amLODIPine 5 mg Tab) colchicine (Colcrys 0.6 mg oral tablet) diclofenac (diclofenac sodium 75 mg Oral EC Tab) fluticasone/umeclidi nium/vilanterol (Trelegy Ellipta 100 mcg-62.5 mcg-25 mcg inhalation powder) liothyronine (liothyronine 25 mcg Tab) pantoprazole (Pantoprazole [address] Tab) Procedures Performed TURBT - Transurethral resection of bladder tumor (07/06/2024), Cystoscopy (04/27/2023), TURBT - Transurethral resection of [...] (Peripheral) 70 Respiratory Rate 16 Blood Pressure 132/82 Height 170 cm Height 67 in Weight 84 kg Weight 185.188 lb BMI 29.07 What to do next Scheduled Follow-Up Appointments Wednesday 10:15 AM EDT With: Lionel WHITNEY MD Where: [facility] [place] [facility] [address] [place] [address]- You Need to Schedule the Following Appointments Follow Up with Lionel WHITNEY MD, URL When: Where: [facility] [address], [place] [address]- Medications What How Much When Instructions Unchanged sildenafil (sildenafil 100 mg Tab) 1 Tablets By Mouth As Directed Take 1 tablet 1 hr prior to sexual activity as needed. Don't exceed 1 tab (100 mg) in a 24 hr period. Unchanged amlodipine (amLODIPine 5 mg Tab) 1 Tablets By Mouth Every day Contact prescribing physician if questions or concerns Unchanged colchicine (Colcrys 0.6 mg oral tablet) 1 Tablets By Mouth Every day as needed for Gout pain Contact prescribing physician if questions or concerns Unchanged diclofenac (diclofenac sodium 75 mg Oral EC Tab) 1 Tablets By Mouth 2 times a day Contact prescribing physician if questions or concerns Unchanged fluticasone/ umeclidinium/ vilanterol (Trelegy Ellipta 100 mcg-62.5 mcg-25 mcg inhalation powder) 1 Puffs Inhalation Every day Contact prescribing physician if questions or concerns Unchanged liothyronine (liothyronine 25 mcg Tab) Contact prescribing physician if questions or concerns Unchanged pantoprazole (Pantoprazole [address] Tab) 1 Tablets By Mouth Every day Contact prescribing physician if questions or concerns Allergies codeine (hives/rashes) Problems Ongoing - Any problem that you are currently receiving treatment for. Acute gouty arthritis Bladder cancer BMI 23.0-23.9, adult Change in bowel habits Chronic GERD Chronic obstructive pulmonary disease GERD (gastroesophageal reflux disease) History of kidney stones History of prostate cancer HTN (hypertension) Impotence Iron deficiency anemia Personal history of bladder cancer Personal history of colonic polyps Spondylolisthesis of cervical region Historical - Any problem that you are no longer receiving treatment for. Acid reflux Cancer of prostate Patient Survey You may receive a survey via text or e-mail asking about your office visit. Please share your experience with us by completing your survey. We appreciate your feedback and thank you for choosing us for your care. Education Materials Bladder Cancer Bladder cancer is a condition [...] you more likely to develop this condition: ??? Smoking. ??? Working where there are risks (occupational exposures), such as working with rubber, leather, clothing fabric, dyes, chemicals, or paint. ??? Being 55 years of age or older. ??? Being male. ??? Having long-term bladder inflammation. ??? Having a history of cancer. This includes: ? A family history of bladd (more content not included)... [facility] Reminderson 07-12-2024 Reminders Reminders - From: Loretta Simons To: [facility] - Recalls Whitney; Sent: 07/12/2024 13:52:33 EST Show up: 08/07/2024 13:52:00 EST Subject: cysto after BCG tx Due Date/Time: 08/18/2024 13:52:00 EST Reminder/Recall Patient will need cysto sched 1 month after BCG tx in August 2024 [facility] Urology Office/Clinic Noteon 07-12-2024 Urology Office/Clinic Note Urology Office/Clinic Note Chief Complaint PO TURBT HPI Staff PO TURBT 07/06/24, review pathology report Dx: bladder cancer, hx of prostate cancer (radical prostatectomy 08/2014) hx of kidney stones and impotence *Sildenafil 100mg PRN and 4P injection therapy Dysuria: _ Incomplete bladder emptying: _ Hematuria: _ Frequency: _ Urgency: _ Nocturia: _ Stream: _ Leaking: _ Post void dripping: _ Wearing pads/ Depends: _ Urge incontinence: _ Stress incontinence: _ Incontinence without Sensory Awareness: _ Abdominal pain: _ Flank pain: _ Sexual complaints: _ History of Present Illness Tests reviewed: UA, op note, path I have reviewed the previous health record [...] HPI. Physical Exam Vitals & Measurements HR: 70(Peripheral) RR: 16 BP: 132/82 HT: 67 in HT: 170 cm WT: 84 kg WT: 185.188 lb BMI: 29.07 General Appearance: alert, no distress, well nourished, well developed male. Assessment/Plan 1. Bladder cancer (C67.9: Malignant neoplasm of bladder, unspecified) Original TURBT 10/29/21 - Non-invasive, low grade TCC. TURBT 02/17/22 - Path was sent to [facility] for second opinion, 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 STEEPLECHASE JOCKEY present and uninvolved. Mitomycin 03/26/22 and 04/20/22. TURBT 01/14/23 - Neg. Chronic inflammation and extensive necrosis. S/p TURBT 07/06/24 - A small focus of borderline high-grade papillary urothelial carcinoma in at least 1 fragment wo obvious stromal invasion (gag writer). 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 Reviewed pathology with pt. Intravesical BCG recommended to help prevent tumor recurrence. EORTC 59646 trial showed no difference between 1/3 dose and full-dose BCG in patients with high-risk disease. Pt is aware of the reasoning and is amenable to proceed as discussed. Will likely need to refer to [facility] for BCG. Previously received mitomycin which is good for low grade bladder ca but not high grade. Follow up after below or sooner if needed. Pt understands and agrees with plan. -Refer to [facility] for induction BCG x 6 doses. Then surveillance cysto in 3 mos. -Mills to be removed IO today. 2. History of prostate cancer (Z85.46: Personal history of malignant neoplasm of prostate) PSA: 07/05/20 - 0.05 09/12/21 - 0.05 09/21/22 - <0.13 09/21/23 - <0.13 S/p radical prostatectomy 08/2014. -PSA due 09/2024. 3. History of kidney stones (Z87.442: Personal history of urinary calculi) Has family hx of stones (sister and son). [1] 4. Impotence (N52.31: Erectile dysfunction following radical prostatectomy) Sildenafil 100 mg PRN and 4P injection therapy. Follow-up With When Contact Information DEVONTE NOBLE, Lionel Burgos, L [facility] [address], [place] [address]- Additional Instructions: Refer to [facility] for induction BCG x 6 doses Patient Education Bladder Cancer I, Liane Wheeler, personally scribed for Dr. Whitney on 07/12/2024 10:59:00. . Documentation recorded by the scribe, Liane Wheeler, accurately reflects the services(s) I performed and decisions made by me. Authenticated by Dr. Whitney on 07/12/2024 11:00:33. Problem List/Past Medical History Ongoing Acute gouty [...] TURBT - Transurethral resection of bladder tumor (07/06/2024), Cystoscopy (04/27/2023), TURBT - Transurethral resection of bladder tumor (01/14/2023), TURBT - Transurethral resection of bladder tumor (02/17/2022), TURBT - Transurethral resection of bladder tumor (10/29/2021), Cystourethroscopy with dilation of urethral stricture (10/14/2021), Repair of umbilical hernia (06/22/2017), Arthroscopy of shoulder (05/20/2017), bilateral fifth partial metatarsal osteotomies and Silver Tailor's bunionectomies (08/29/2014), Radical prostatectomy (08/2014), Colonoscopy (05/2014), Complete (more content not included)... [facility] Comment on above: Result Comment: Elec tronically Signed By: Lionel WHITNEY MD.br\Date and Time Signed: 07/12/24 11:00 EST\.br\Electronically Co-Signed By: Liane Wheeler\.br\Date and Time Co-Signed: 07/12/24 10:59 EST Guillermo 07-06-2024 L Specimen: [id number] Received: 07/07/24 Status: ZACKERY Nails Num: [id number] Spec Type: Surgical Subm Dr: Lionel Whitney MD Tissues: A Urinary Bladder - TUR (BLADDER TUMOR) Procedures: HE, Gross/Micro L5 Age/ Patient Sex Location Account Attending Physician Mary Diaz 74/M [place] [id number] Lionel Whitney MD SPEC NUM: [id number] RECD: 07/07/24 STATUS: ZACKERY SKYLAR NUM: [id number] JOE: 07/06/24 [facility] DR: Lionel Whitney MD ENTERED: 07/07/[address]: Melba,Cyndee SPEC TYPE: Surgical DEPT: [facility]IANA HERNANDEZ ENTERED BY: [id number] RECV BY: [id number] ORDERED: HE, Gross/Micro L5 ORDERED: HE, Gross/Micro L5 Pathological Diagnosis Urinary bladder tumor, TURBT: -A small focus of borderline high-grade papillary urothelial carcinoma in at least 1 fragment, without obvious stromal invasion (gag writer) -Muscularis propria muscle is also present in 1 other fragment, also without tumor involvement Note: -The proliferation is slightly hypercellular over the frond, but without significant high N:C ratio, or significant cytological atypia ,or significant mitotic activity. Focal mild degeneration of the urothelial cells including rare apoptotic degeneration are otherwise no ticed Clinical Information Bladder tumor lesions Gross Description Part A is received in formalin labeled with the patients name, date of , and bladder tumor are 0.2 g of myers-pink, rubbery tissue chips, 0.8 x 0.5 x 0.2 cm in aggregate. The specimen is filtered and entirely submitted in a single cassette. (1, nilo, BS A) YAMILKA Specimen: [id number] Received: 07/07/24 Status: ZACKERY Nails Num: [id number] Spec Type: Surgical Subm Dr: Lionel Whitney MD Tissues: A Urinary Bladder - TUR (BLADDER TUMOR) Procedures: Kathy BATEMAN/Eligio L5 Patient: Mary Diaz [id number] (Continued) Specimen: [id number] Received: 07/07/24 (Continued) Signed (signature on file) Yordy Dixon MD 07/10/24 1627 Specimen: [id number] Received: 07/07/24 Status: NOEMILee Nails Num: [id number] Spec Type: Surgical Subm Dr: Lionel Whitney MD Tissues: A Urinary Bladder - TUR (BLADDER TUMOR) Procedures: FRANSICO, Gross/Micro L5 Patient: Mary Diaz [id number] (Continued) Specimen: [id number] Received: 07/07/24 (Continued) Microscopic Description Microscopic examinations are performed supporting the above interpretation CPT Codes 80176 Specimen: [id number] Received: 07/07/24 Status: ZACKERY Nails Num: [id number] Spec Type: Surgical Subm Dr: Lionel Whitney MD Tissues: A Urinary Bladder - TUR (BLADDER TUMOR) Procedures: HE, Gross/Eligio L5 Patient: Mary Diaz [id number] (Continued) Signed (signature on file) Chin-Oscar Dixon MD 07/10/24 1627 Normal [facility] TRANSTHORACIC ECHO (TTE) [facility] 06-09-2024 TRANSTHORACIC ECHO (TTE) COMPLETE [address], [place] [address] TRANSTHORACIC ECHOCARDIOGRAM REPORT Patient Name: MARY DIAZ [place] Physician: [id number] Rolly Michaels MD, [facility] Study Date: 06/09/2024 Ordering Provider: [id number] CADY ESPINOSA MRN/PID: [id number] Fellow: Nurse: Date of /Age: 8 1950 / 74 years Life Skills Coach: Alyse Arriaga RDCS, T Gender Assigned at Additional Staff: : Height: 182.88 cm Admit Date: Weight: 86.64 kg Admission Status: BSA / BMI: 2.09 m2 / 25.90 Department Location: [address] Blood Pressure: 162 /82 mmHg Study Type: TRANSTHORACIC ECHO (TTE) COMPLETE Diagnosis/ICD: Shortness of breath-R06.02 Indication: HTN, Hyperlipidemia, Former Smoker, Asymetrical Upper Extremity Blood Pressures, History of Bladder and Prostate Cancer CPT Codes: Echo Complete w Full Doppler-99351 Study Detail: The following Echo studies were [...] mmHg PIEDV: 2.07 m/s PADP: 20.1 mmHg [id number] Rolly Michaels MD, FACC Electronically signed on 06/09/2024 at 4:40:40 PM Final Normal [facility] US Heart TransthoracicOrdere d By: Rolly Michaels on 06-09-2024 Aortic Valve Area by Continuity of Peak Velocity 2.99 cm2 [facility] Work Phone: Aortic Valve Area by Continuity of VTI 3.72 cm2 [facility] Work Phone: AV mn grad 4 mmHg [facility] Work Phone: AV pk grad 9 mmHg [facility] Work Phone: AV pk sedrick 1.47 m/s [facility] Work Phone: LV A4C EF 71.4 [facility] Work Phone: LV Biplane EF 68 % [facility] Work Phone: LV EF 63 % [facility] Work Phone: LVIDd 5.09 cm [facility] Work Phone: LVOT diam 2.5 cm [facility] Work Phone: [phone] MV avg E/e' ratio 6.2 [facility] Work Phone: [phone] MV E/A ratio 0.57 [facility] Work Phone: RVSP 30.2 mmHg [facility] Work Phone: [facility] Work Phone: Heart Transthoracicon [facility] [place] [address] [facility], [address], [place] [address] TRANSTHORACIC ECHOCARDIOGRAM REPORT Patient Name: MARY DIAZ Reading Physician: [id number] Rolly Michaesl MD, [facility] Study Date: 06/09/2024 Ordering Provider: [id number] CADY ESPINOSA MRN/PID: [id number] Fellow: Nurse: Date of /Age: 8 1950 / 74 years Life Skills Coach: Alyse Arriaga RDCS, RVT Gender Assigned at Additional Staff: : Height: 182.88 cm Admit Date: Weight: 86.64 kg Admission Status: BSA / BMI: 2.09 m2 / 25.90 Department Location: [facility] kg/m2 [facility] [place] Blood Pressure: 162 /82 mmHg Study Type: TRANSTHORACIC ECHO (TTE) COMPLETE Diagnosis/ICD: Shortness of breath-R06.02 Indication: HTN, Hyperlipidemia, Former Smoker, Asymetrical Upper Extremity Blood Pressures, History of Bladder and Prostate Cancer CPT Codes: Echo Complete w Full Doppler-91948 Study Detail: The following Echo studies were [...] not included)... Rolly Lerner MD - 06/09/[address], [address], [place] [address] TRANSTHORACIC ECHOCARDIOGRAM REPORT Patient Name: MARY DIAZ Reading Physician: [id number] Rolly Michaels MD, [facility] Study Date: 06/09/2024 Ordering Provider: [id number] CADY ESPINOSA MRN/PID: [id number] Fellow: Nurse: Date of /Age: 8 1950 / 74 years Life Skills Coach: Alyse Arriaga RDCS, RVT Gender Assigned at Additional Staff: : Height: 182.88 cm Admit Date: Weight: 86.64 kg Admission Status: BSA / BMI: 2.09 m2 / 25.90 Department Location: [facility] kg/m2 [facility] Blood Pressure: 162 /82 mmHg Study Type: TRANSTHORACIC ECHO (TTE) COMPLETE Diagnosis/ICD: Shortness of breath-R06.02 Indication: HTN, Hyperlipidemia, Former Smoker, Asymetrical Upper Extremity Blood Pressures, History of Bladder and Prostate Cancer CPT Codes: Echo Complete w Full Doppler-31635 Study Detail: The following Echo studies were [...] mmHg PIEDV: 2.07 m/s PADP: 20.1 mmHg [id number] Rolly Michaels MD, FACC Electronically signed on 06/09/2024 at 4:40:40 PM Final [facility] Work Phone: US.doppler Carotid arteries - bilateral 06-09-[address], [address], [place] [address] Vascular Lab Report [facility] US CAROTID ARTERY DUPLEX BILATERAL Patient Name: MARY DIAZ Reading Physician: [id number] Rolly Michaels MD, [facility] Study Date: 06/09/2024 Ordering Provider: [id number] CADY ESPINOSA MRN/PID: [id number] Fellow: Technologist: Alyse Arriaga [facility], T Date of /Age: 8 1950 / 74 years Technologist 2: Gender: M Admission Status: Outpatient Location Performed: [facility] Diagnosis/ICD: Other specified symptoms and signs involving the circulatory and respiratory systems-R09.89 Indication: Unequal Upper Extremity Blood Pressures, HTN, Hyperlipidemia, Former Smoker, History of Bladder and Prostate Cancer CPT Codes: 30379 Cerebrovascular Carotid Duplex scan complete CONCLUSIONS: Right [...] cm/s Right Left ICA/CCA Ratio 1.5 0.7 [id number] Rolly Michaels MD, FACC Final Rolly Lerner MD - 06/09/[address], [address] [address] Vascular Lab Report [facility] US CAROTID ARTERY DUPLEX BILATERAL Patient Name: MARY DIAZ Reading Physician: [id number] Rolly Michaels MD, FACC Study Date: 06/09/2024 Ordering Provider: [id number] CADY ESPINOSA MRN/PID: [id number] Fellow: Technologist: Alyse Arriaga RDCS [facility] Date of /Age: 8 1950 / 74 years Technologist 2: Gender: M Admission Status: Outpatient Location Performed: [facility] Diagnosis/ICD: Other specified symptoms and signs involving the circulatory and respiratory systems-R09.89 Indication: Unequal Upper Extremity Blood Pressures, HTN, Hyperlipidemia, Former Smoker, History of Bladder and Prostate Cancer CPT Codes: 97567 Cerebrovascular Carotid Duplex scan complete CONCLUSIONS: Right [...] cm/s Right Left ICA/CCA Ratio 1.5 0.7 [id number] Rolly Michaels MD, FACC Final [facility] Work Phone: Radiology Study observation (narrative) [facility] Work Phone: US.doppler Carotid arteries - bilateralOrdered By: Rolly Michaels on 06-09-2024 [facility] Work Phone: [facility] US CAROTID ARTERY DUPLE X BILATERALon 06-09-2024 [facility] US CAROTID ARTERY DUPLEX BILATERAL [address], Suite [facility], [place] [address] Vascular Lab Report [facility] US CAROTID ARTERY DUPLEX BILATERAL Patient Name: MARY Ahn Physician: [id number] Rolly Michaels MD, FACC Study Date: 06/09/2024 Ordering Provider: [id number] CADY ESPINOSA MRN/PID: [id number] Fellow: Technologist: Alyse Arriaga RDCS, RVT Date of /Age: 8 1950 / 74 years Technologist 2: Gender: M Admission Status: Outpatient Location Performed: [facility] Diagnosis/ICD: Other specified symptoms and signs involving the circulatory and respiratory systems-R09.89 Indication: Unequal Upper Extremity Blood Pressures, HTN, Hyperlipidemia, Former Smoker, History of Bladder and Prostate Cancer CPT Codes: 00001 Cerebrovascular Carotid Duplex scan complete CONCLUSIONS: Right [...] cm/s Right Left ICA/CCA Ratio 1.5 0.7 [id number] Rolly Michaels MD, FACC Final Normal [facility] Urine Cytology ([facility])on 07-30-2023 Microscopic exam Cytology (U) [Interp] Diagnosis Info Invalid Interpretation Code [facility] Comment on above: Result Comment: A:Ur ine,Urine:Voided Interpretation - Occasional atypical urothelial cells with degenerative changes. CPT 12501 MicroScopic Description - Adequacy - Gross Description Site ID:A color Yellow fixative Alcohol Specimen designated Urine received in alcohol preservative and labeled with the patient???s name, consists of 40ml clear yellow fluid. Electronically signed by : on: 05/29/2024 13:16:19 Performed By: #### 1 [id number] #### [facility] [address] [place] [address] Urine Cytology ([facility])on 07-23-2023 UC Method of Extraction Voided Normal F [facility] Comment on above: Performed By: #### 1 [id number] #### [facility] [address] [place] [address] Number of Jars 1 Invalid Interpretation Code [facility] Comment on above: Performed By: #### 1 [id number] #### [facility] [address] [place] [address] Specimen Urine Normal [facility] Comment on above: Performed By: #### 1 [id number] #### [facility] [address] [place] [address] Type of Service Technical Only Normal [facility] Comment on above: Performed By: #### 1 [id number] #### [facility] [address] [place] [address] UroVysion Fish and Urine Cyt o ([facility])on 05-15-2024 UVFISH & UC Diagnosis Info Invalid Interpretation Code [facility] Comment on above: Result Comment: Rodrick s Description Electronically signed by : on: 05/15/2024 11:58:17 Performed By: #### 1 [id number] #### [facility] [address] [place] [address] Main OR Intraoperative Recor serena 05-09-2024 Main OR Intraoperative Record Main OR Intraoperative Record IntraOp Document Type FTURO Summary Primary Physician: Lionel WHITNEY MD Finalized Date/Time: 05/09/24 09:43:24 Pt. Name: MARY DIAZ/Sex: 1950 Male Med Rec #: [id number] Physician: Lionel WHITNEY MD Financial #: [id number] Pt. Type: O Room/Bed: / Admit/Disch: 05/09/24 08:45:25 - Institution: Case Times FTURO Entry 1 Patient Times In Room 05/09/24 09:25:00 Out Room 05/09/24 09:42:00 Procedure Times Start 05/09/24 09:33:00 Stop 05/09/24 09:37:00 Anesthesia Times Last Modified By: Fitz ZELAYA, Frances Bellamy 05/09/24 09:40:32 Case Attendance FTURO Entry 1 Entry 2 Entry 3 Case Attendee Lionel WHITNEY MD, RN, Frances Baig CST, Nanci Bellamy Role Performed Surgeon - Primary Manager Technical Sales - Primary Scrub - Primary Time In 05/09/24 09:33:00 05/09/24 09:25:00 05/09/24 09:25:00 Time Out 05/09/24 09:42:00 05/09/24 09:42:00 05/09/24 09:42:00 Procedure CYSTOSCOPY LOCAL(.) CYSTOSCOPY LOCAL(.) CYSTOSCOPY LOCAL(.) Comments Last Modified By: Fitz ZELAYA, Frances Byrnes RN, Frances Byrnes RN, Frances Bellamy 05/09/24 Carol Bellamy 05/09/24 Carol P 05/09/24 09:40:33 09:40:33 09:40:33 [...] Participants Fitz ZELAYA, Frances Applicable) Safia Bolton CST, Kimberly A Time Out Complete 05/09/24 09:33:00 Allergies [...] By: Frances Byrnes RN 05/09/24 09:43 Normal [facility] Main OR Preoperative Recordo n 05-09-2024 Main OR Preoperative Record Main OR Preoperative Record Holding Area Document Type FTURO Summary Primary Physician: Lionel WHITNEY MD Finalized Date/Time: 05/09/24 09:28:03 Pt. Name: EMILYMARY/Sex: 1950 Male Med Rec #: [id number] Physician: Lionel WHITNEY MD Financial #: [id number] Pt. Type: O Room/Bed: / Admit/Disch: 05/09/24 [...] Complaints of Pain: No Skin Integrity Intact, Stout[place], Warm, & Dry Vitals - EU Blood Pressure 190/90 Pulse 78 bpm Respirations 18 br/min SPO2 96 % Additional JIM RN Reviewed Yes Specimens Collected Last Modified By: Frances Byrnes RN 05/09/24 09:28:01 Finalized By: Frances Byrnes RN Document Signatures Signed By: Oliver GONZALEZEsther Ricarda 05/09/24 09:10 Frances Byrnes RN 05/09/24 09:28 Normal [facility] Operative Reporton Operative Report Operative [...] with antibiotic coverage, Follow up arranged. Normal [facility] Comment on above: Result Comment: Elec tronically Signed By: Lionel WHITNEY MD\.br\Date and Time Signed: 05/09/24 09:48 EST UroVysion Fish and Urine Cyt o ([facility])on 05-09-2024 [facility] Method of Extraction Voided Normal [facility] Comment on above: Performed By: #### 1 [id number] #### [facility] [address] [place] [address] [facility] Number of Jars 1 Invalid Interpretation Code [facility] Comment on above: Performed By: #### 1 [id number] #### [facility] [address] [facility] [place] [address] [facility] Specimen Urine Normal [facility] Comment on above: Performed By: #### 1 [id number] #### [facility] [address] [place] [address] [facility] Type of Service Technical Only Normal [facility] Comment on above: Performed By: #### 1 [id number] #### [facility] [address] [facility] [place] [address] ECG 12 Leadon 05-08-2024 [facility] Work Phone: Reminderson 04-13-2024 Reminders Reminders - From: Loretta Simons To: EU - Recalls Whitney; Sent: 04/13/2024 11:42:40 EDT Show up: 08/19/2024 11:42:00 EST Subject: Cysto/Needs FISH/cytol Due Date/Time: 09/11/2024 11:42:00 EDT Reminder/Recall Patient is due in October 2024 for 6 month cysto/fish/cytol, bt ck Normal [facility] Patient Educationon 11-26-19 Patient Education Urology Varicocelectomy [...] including vitamins, herbs, eye drops, creams, and lnql-kww-oplwpyw medicines. ? Any problems you or family [...] tells you to take them. ? Taking vmrw-ymq-dnlkbdx medicines, vitamins, herbs, and supplements. General instructions [...] health c (more content not included)... Normal [facility] UroVysion Fish and Urine Cyt o ([facility])on 11-02-2023 [facility] & UC Diagnosis Info Invalid Interpretation Code [facility] Comment on above: Result [...] on: 11/02/2023 10:22:27 Performed By: #### 1 [id number] ####[facility] [address] [place] [address] Consent for Procedure/Surger yon 10-26-2023 Consent for Procedure/Surgery [id number] 2#1.00TIFF Normal [facility] Consent for Treatmenton Consent for Treatment [id number] #1.00TIFF Normal [facility] IntraOperative Documentson 0 10-26-2023 IntraOperative Documents [id number] 2#1.00TIFF Normal [facility] Main OR Intraoperative Recor don 10-26-2023 Main OR Intraoperative Record IntraOp Document Type FTURO Summary Primary Physician: Lionel WHITNEY MD Finalized Date/Time: 10/26/23 11:57:52 Pt. Name: MARY DIAZ/Sex: 1950 Male Med Rec #: [id number] Physician: Lionel WHITNEY MD Financial #: [id number] Pt. Type: O Room/Bed: / Admit/Disch: 10/26/23 09:34:20 - Institution: Case Times FTURO Entry 1 Patient Times In Room 10/26/23 11:49:00 Out Room 10/26/23 11:57:00 Procedure Times Start 10/26/23 11:51:00 Stop 10/26/23 11:55:00 Anesthesia Times Last Modified By: Fabiana Galaviz 10/26/23 11:57:45 Case Attendance FTURO Entry 1 Entry 2 Entry 3 Case Attendee Lionel WHITNEY MD, Kelsie E McClain ADVERTISING DISPLAY ROTATOR, Nanci Baxter Role Performed Surgeon - Primary Manager Technical Sales - Primary Scrub - Primary Time In [...] Prep Agents Betadine Solution Skin. Condition Intact, [place], Warm, and Description REDDED DOTS ON Dry, [...] 10/26/23 11:57 Fabiana Galaviz 10/26/23 11:57 Normal [facility] Main OR Preoperative Recordo n 10-26-2023 Main OR Preoperative Record Holding Area Document Type FTURO Summary Primary Physician: Lionel WHITNEY MD Finalized Date/Time: 10/26/23 11:16:48 Pt. Name: MARY DIAZ/Sex: 1950 Male Med Rec #: [id number] Physician: Lionel WHITNEY MD Financial #: [id number] Pt. Type: O Room/Bed: / Admit/Disch: 10/26/23 [...] 11:11 Nanci Cortes RN 10/26/23 11:16 Normal [facility] Operative Reporton Operative Report Patient: [...] with antibiotic coverage, Follow up arranged. Normal [facility] Comment on above: Result Comment: Elec tronically Signed By: DEVONTE NOBLE, Lionel Gama.br\Date and Time Signed: 10/26/23 11:58 EDT Outpatient Surgery Discharge Instructionon 10-26-2023 Outpatient Surgery Discharge Instruction [id number] 2#1.00TIFF Normal [facility] UroVysion Fish and Urine Cyt o ( Labs)on 10-26-2023 [facility] Method of Extraction Voided Normal [facility] Comment on above: Performed By: #### 1 [id number] ####[facility] [address] [place] [id number] [facility] Number of Jars 1 Invalid Interpretation Code [facility] Comment on above: Performed By: #### 1 [id number] ####[facility] [address] [place] [address] [facility] Specimen Urine Normal [facility] Comment on above: Performed By: #### 1 [id number] ####[facility] [address] [place] [address] [facility] Type of Service Technical Only Normal [facility] Comment on above: Performed By: #### 1 [id number] ####[facility] [address] [place] [address] Ambulatory Visit Summaryon 0 10-04-2023 Ambulatory Visit Summary MARY DIAZ :1950 Visit Date:10/04/2023 Ambulatory Visit Instructions Your Diagnosis History of prostate cancer Personal history of bladder cancer History of kidney stones Impotence Your Care Team Attending Physician - Lionel WHITNEY MD Primary Care Physician - Deandre Monterroso MD This Is Your Medications List [...] [place] Where: [facility] Normal [facility] Patient Educationon 10-04-19 24 Patient [...] if anything looks unusual. Men with a qdtuwv-ydgi-apqbwi risk for skin cancer may want to see a bark skinner (assistant boys track coach) for an annual body check. What are the benefits of screening? Cancer screening is done to look for cancer in the very early stages, before it spreads and becomes harder to treat and before you would start to notice symptoms. Finding cancer early improves the chances of successful treatment. It ma (more content not included)... Normal [facility]rology Office/Clinic Noteon 10-04-2023 Urology Office/Clinic Note [...] [facility] [address], [place] [phone] Additional Instructions: 1 yr w/ PSA Patient [...] inhalation po (more content not included)... Normal [facility] Comment on above: Result Comment: Elec tronically Signed By: Lionel WHITNEY MD\.br\Date and Time Signed: 10/04/23 11:16 EDT\.br\Electronically Co-Signed By: Lilo Zhou\.tacos\Date and Time Co-Signed: 10/04/23 11:14 EDT Lab Reportson 09-22-2023 Lab Reports [id number] #1.00TIFF [facility] MR cervical spine wo/w conon 08-29-2023 MR cervical spine wo/w con [facility] [place] [address] MRI Report Signed Patient: Mary Diaz MR#: [id number] : 1950 Acct:[id number] Age/Sex: 73 / M ADM Date: 08/28/23 Loc: MR [facility]: [facility]: Esther HILTON Copies to: LIDA [...] Lupe Campos M.D.08/29/2023 1:06 PM Dictation Location: [place] [address] Transcribed By: [facility] 08/29/23 1306 Dictated By: Lupe Campos MD 08/29/23 1254 Signed By: 08/29/23 1306 Normal [facility] ISTAT XRay CREon 08-28-2023 ISTAT GFR > 60.0 Normal [facility] Comment on above: Result Comment: PERF ORMED BY: [place] [address] PATHOLOGIST SUPERVISOR DRY CELL ASSEMBLY JENARO FLOREZ M.D. Performed By: #### I SCRE #### [address] No Panel InformationOrdered By: Esther Lowery on 08-28-2023 Bedside Estimated GFR (eGFR) > 60.0 [facility] Whole blood creatinine measu rementOrdered By: Esther Lowery on 08-28-2023 Creatinine [Mass/Vol] 1.2 mg/dL Normal 0.6-1.[address] [facility] Comment on above: ER/ESD physician is notified/shown all ISTAT results.Critical values may be confirmed by laboratory testing ifdeemed necessary by ER attending doctor. Result Comment: ER/E SD physician is notified/shown all ISTAT results. Critical values may be confirmed by laboratory testing if deemed necessary by ER attending doctor. Performed By: #### I SCRE #### [address] XR cervical spine LAT/FLX/EX Ton 08-12-2023 XR cervical spine LAT/FLX/EXT [facility] Main [place] [address] [place] [address] XRay Report Signed Patient: Mary Diaz MR#: [id number] : 1950 Acct:[id number] Age/Sex: 73 / M ADM Date: 08/12/23 Loc: XD Room: Type: REG CLI Attending Dr: Esther Lowery STEEPLECHASE JOCKEY-C Copies to: LIDA Flynn Ordering Provider: LIDA [...] Kenny Leahy M.D.08/12/2023 3:29 PM Dictation Location: [place] [address] Transcribed By: [facility] 08/12/23 1529 Dictated By: Kenny Leahy DO 08/12/23 1528 Signed By: 08/12/23 1529 Normal [facility] XR lumbar spine 6V w bending on 08-12-2023 XR lumbar spine 6V w bending [facility] [place] [address] XRay Report Signed Patient: Mary Diaz MR#: [id number] : 1950 Acct:[id number] Age/Sex: 73 / M ADM Date: 08/12/23 Loc: XD Room: Type: [facility] CLI Attending Dr: Esther Lowery STEEPLECHASE JOCKEY-C Copies to: LIDA Flynn Ordering Provider: LIDA [...] Kenny Leahy M.D.08/12/2023 3:28 PM Dictation Location: RADIO-PC-14 Transcribed By: [facility] 08/12/23 1528 Dictated By: Kenny Leahy DO 08/12/23 1526 Signed By: 08/12/23 1528 Normal [facility] Physician [facility] XR CSPINE MIN 4 VIEWSon 05-0 XR [...] by: ALLI CORTES Date: 2022-10-23 11:53 Normal [facility] XR LSPINE W_OBLS AND FLEX_EX Ton [...] [place] GONZALEZ Date: 2022-10-23 13:18 Normal [facility] BNPon 10-06-2022 Natriuretic peptide B (Bld) [Mass/Vol] 844.0 pg/mL Normal <=900.0 [facility] Comment on above: Performed By: #### C VDTB #### [facility] [address] [place] [address] Dr. Johnna Dixon CBC AUTO DIFFon 10-06-2022 BASO # 0.0 103/ul Normal 0.0-0.1 [facility] Comment on above: Performed By: #### C BC #### [facility] [address] [place] [address] Dr. Johnna Dixon Basophils/100 WBC (Bld) 0.0 % Critically low 0.2-2.0 [facility] Comment on above: Performed By: #### C BC #### [facility] [address] [place] [address] Dr. Johnna Dixon EO # 0.0 103/ul Normal 0.0-0.7 [facility] Comment on above: Performed By: #### C BC #### [facility] [address] [place] [address] Dr. Johnna Dixon Eosinophils/100 WBC (Bld) 0.0 % Critically low 0.9-7.0 [facility] Comment on above: Performed By: #### C BC #### [facility] [address] [place] [address] Dr. Johnna Dixon Erythrocyte distribution width (RBC) [Ratio] 13.9 % Normal 11.0-15.0 [facility] Comment on above: Performed By: #### C BC #### [facility] [address] [place] [address] Dr. Johnna Dixon Hematocrit (Bld) [Volume fraction] 33.6 % Critically low 42.0-54.0 [facility] Comment on above: Performed By: #### C BC #### [facility] [address] [place] [address] Dr. Johnna Dixon Hemoglobin (Bld) [Mass/Vol] 11.1 g/dL Critically low 14.0-18.0 [facility] Comment on above: Performed By: #### C BC #### [facility] [address] [place] [address] Dr. Johnna Dixon IG # 0.03 10e3/ul Normal 0.00-0.03 [facility] Comment on above: Performed By: #### C BC #### [facility] [address] [place] [address] Dr. Johnna Dixon IG % 0.5 % Normal 0.0-0.5 [facility] Comment on above: Performed By: #### C BC #### [facility] [address] [place] [address] Dr. Johnna Dixon LYMPH # 0.7 103/ul Critically low 1.2-3.[address] [facility] Comment on above: Performed By: #### C BC #### [facility] [address] [place] [address] Dr. Johnna Dixon Lymphocytes/100 WBC (Bld) 11.5 % Critically low 20.5-60.0 [facility] Comment on above: Performed By: #### C BC #### [facility] [address] [place] [address] Dr. Johnna Dixon MANUAL DIFF REQ NO Normal [facility] Comment on above: Performed By: #### C BC #### [facility] [address] [place] [address] Dr. Johnna Dixon MCH (RBC) [Entitic mass] 31.0 pg Normal 25.9-34.0 [facility] Comment on above: Performed By: #### C BC #### [facility] [address] [place] [address] Dr. Johnna Dixon MCHC (RBC) [Mass/Vol] 33.0 g/dL Normal 29.9-35.2 [facility] Comment on above: Performed By: #### C BC #### [facility] [address] [place] [address] Dr. Johnna Dixon MCV (RBC) [Entitic vol] 93.9 fL Normal 80.0-94.0 [facility] Comment on above: Performed By: #### C BC #### [facility] [address] [address] [address] Johnna Dixon MONO # 0.3 103/ul Normal 0.3-0.8 [facility] Comment on above: Performed By: #### C BC #### [facility] [address] [address] [address] Johnna Dixon Monocytes/100 WBC (Bld) 4.5 % Normal 1.7-12.0 [facility] Comment on above: Performed By: #### C BC #### [facility] [address] [place] [address] Dr. Johnna Dixon NEUT # 5.0 103/ul Normal 1.4-6.5 [facility] Comment on above: Performed By: #### C BC #### [facility] [address] [place] [address] Dr. Johnna Dixon Neutrophils/100 WBC (Bld) 83.5 % Critically high 43.0-75.0 [facility] Comment on above: Performed By: #### C BC #### [facility] [address] [place] [address] Dr. Johnna Dixon Platelet mean volume (Bld) [Entitic vol] 10.3 fL Normal 9.5-13.5 [facility] Comment on above: Performed By: #### C BC #### [facility] [address] [place] [address] Dr. Johnna Dixon PLT 184 103/ul Normal 150-450 [facility] Comment on above: Performed By: #### C BC #### [facility] [address] [place] [address] Dr. Johnna Dixon RBC 3.58 106/ul Critically low 4.70-6.10 [facility] Comment on above: Performed By: #### C BC #### [facility] [address] [place] [address] Dr. Johnna Dixon WBC 6.0 103/ul Normal 4.0-11.0 [facility] Comment on above: Performed By: #### C BC #### [facility] [address] [place] [address] Dr. Johnna Dixon PROF 14(COMP METB)on 023 Albumin [Mass/Vol] 2.7 g/dL Critically low 3.4-5.0 [facility] Comment on above: Performed By: #### C VDTBH #### [facility] [address] [address] [address] Johnna Dixon Albumin/Globulin [Mass ratio] 0.9 {ratio} Normal [facility] Comment on above: Performed By: #### C VDTBH #### [facility] [address] [place] [address] Dr. Johnna Dixon ALP [Catalytic activity/Vol] 32 U/L Critically low 46-116 [facility] Comment on above: Performed By: #### C VDTBH #### [facility] [address] [place] [address] Dr. Johnna Dixon ALT [Catalytic activity/Vol] 19 U/L Normal 16-63 [facility] Comment on above: Performed By: #### C VDTBH #### [facility] [address] [place] [address] Dr. Johnna Dixon Anion gap [Moles/Vol] 14.0 mmol/L Normal [facility] Comment on above: Performed By: #### C VDTBH #### [facility] [address] [address] [address] Johnna Dixon AST [Catalytic activity/Vol] 12 U/L Critically low 15-37 [facility] Comment on above: Performed By: #### C VDTBH #### [facility] [address] [address] [address] Johnna Dixon Bilirubin [Mass/Vol] 0.6 mg/dL Normal 0.2-1.0 [facility] Comment on above: Performed By: #### C VDTBH #### [facility] [address] [place] [address] Dr. Johnna Dixon Calcium [Mass/Vol] 8.3 mg/dL Critically low 8.5-10.1 [facility] Comment on above: Performed By: #### C VDTBH #### [facility] [address] [address] [address] Johnna Dixon Chloride [Moles/Vol] 107 mmol/L Normal 98-107 [facility] Comment on above: Performed By: #### C VDTBH #### [facility] [address] [address] [address] Johnna Dixon CO2 [Moles/Vol] 24.9 mmol/L Normal 21.0-32.0 [facility] Comment on above: Performed By: #### C VDTBH #### [facility] [address] [address] [address] Johnna Dixon Creatinine [Mass/Vol] 1.20 mg/dL Normal 0.70-1.30 [facility] Comment on above: Performed By: #### C VDTBH #### [facility] [address] [place] [address] Dr. Johnna Dixon EGFR-AF HONDURAN >60 Normal >=60 [facility] Comment on above: Performed By: #### C VDTBH #### [facility] [address] [address] [address] Johnna Dixon EGFR-NON AF HONDURAN 60 mL/min/1.73m2 Normal >=60 [facility] Comment on above: Performed By: #### C VDTBH #### [facility] [address] [address] [address] Johnna Dixon Globulin (S) [Mass/Vol] 2.9 g/dL Normal [facility] Comment on above: Performed By: #### C VDTBH #### [facility] [address] [address] [address] Johnna Dixon Glucose [Mass/Vol] 153 mg/dL Critically high 74-106 [facility] Comment on above: Performed By: #### C VDTBH #### [facility] [address] [place] [address] Dr. Johnna Dixon Potassium [Moles/Vol] 3.9 mmol/L Normal 3.5-5.1 [facility] Comment on above: Performed By: #### C VDTBH #### [facility] [address] [place] [address] Dr. Johnna Dixon Protein [Mass/Vol] 5.6 g/dL Critically low 6.4-8.2 [facility] Comment on above: Performed By: #### C VDTBH #### [facility] [address] [place] [address] Dr. Johnna Dixon Sodium [Moles/Vol] 142 mmol/L Normal 136-145 [facility] Comment on above: Performed By: #### C VDTBH #### [facility] [address] [place] [address] Dr. Johnna Dixon Urea nitrogen [Mass/Vol] 14.0 mg/dL Normal 7.0-18.0 [facility] Comment on above: Performed By: #### C VDTBH #### [facility] [address] [place] [address] Dr. Johnna Dixon Urea nitrogen/Creatinine [Mass ratio] 11.7 mg/mg Normal [facility] Comment on above: Performed By: #### C VDTBH #### [facility] [address] [place] [address] Dr. Johnna Dixon CBC AUTO DIFFon 10-05-2022 BASO # 0.0 103/ul Normal 0.0-0.1 [facility] Comment on above: Performed By: #### S PUTGS #### [facility] [address] [place] [address] Dr. Johnna Dixon Basophils/100 WBC (Bld) 0.2 % Normal 0.2-2.0 [facility] Comment on above: Performed By: #### S PUTGS #### [facility] [address] [place] [address] Dr. Johnna Dixon EO # 0.0 103/ul Normal 0.0-0.7 [facility] Comment on above: Performed By: #### S PUTGS #### [facility] [address] [place] [address] Dr. Johnna Dixon Eosinophils/100 WBC (Bld) 0.2 % Critically low 0.9-7.0 [facility] Comment on above: Performed By: #### S PUTGS #### [facility] [address] [place] [address] Dr. Johnna Dixon Erythrocyte distribution width (RBC) [Ratio] 14.1 % Normal 11.0-15.0 [facility] Comment on above: Performed By: #### S PUTGS #### [facility] [address] [place] [address] Dr. Johnna Dixon Hematocrit (Bld) [Volume fraction] 39.9 % Critically low 42.0-54.0 [facility] Comment on above: Performed By: #### S PUTGS #### [facility] [address] [place] [address] Dr. Johnna Dixon Hemoglobin (Bld) [Mass/Vol] 12.8 g/dL Critically low 14.0-18.0 [facility] Comment on above: Performed By: #### S PUTGS #### [facility] [address] [place] [address] Dr. Johnna Dixon IG # 0.01 10e3/ul Normal 0.00-0.03 [facility] Comment on above: Performed By: #### S PUTGS #### [facility] [address] [place] [address] Dr. Johnna Dixon IG % 0.2 % Normal 0.0-0.5 [facility] Comment on above: Performed By: #### S PUTGS #### [facility] [address] [place] [address] Dr. Johnna Dixon LYMPH # 0.7 103/ul Critically low 1.2-3.8 [facility] Comment on above: Performed By: #### S PUTGS #### [facility] [address] [place] [address] Dr. Johnna Dixon Lymphocytes/100 WBC (Bld) 14.3 % Critically low 20.5-60.0 [facility] Comment on above: Performed By: #### S PUTGS #### [facility] [address] [place] [address] Dr. Johnna Dixon MANUAL DIFF REQ NO Normal [facility] Comment on above: Performed By: #### S PUTGS #### [facility] [address] [place] [address] Dr. Johnna Dixon MCH (RBC) [Entitic mass] 30.7 pg Normal 25.9-34.0 [facility] Comment on above: Performed By: #### S PUTGS #### [facility] [address] [place] [address] Dr. Johnna Dixon MCHC (RBC) [Mass/Vol] 32.1 g/dL Normal 29.9-35.2 [facility] Comment on above: Performed By: #### S PUTGS #### [facility] [address] [place] [address] Dr. Johnna Dixon MCV (RBC) [Entitic vol] 95.7 fL Critically high 80.0-94 .0 [facility] Comment on above: Performed By: #### S PUTGS #### [facility] [address] [place] [address] Dr. Johnna Dixon MONO # 0.6 103/ul Normal 0.3-0.8 [facility] Comment on above: Performed By: #### S PUTGS #### [facility] [address] [place] [address] Dr. Johnna Dixon Monocytes/100 WBC (Bld) 12.5 % Critically high 1.7-12. 0 [facility] Comment on above: Performed By: #### S PUTGS #### [facility] [address] [place] [address] Dr. Johnna Dixon NEUT # 3.6 103/ul Normal 1.4-6.5 [facility] Comment on above: Performed By: #### S PUTGS #### [facility] [address] [place] [address] Dr. Johnna Dixon Neutrophils/100 WBC (Bld) 72.6 % Normal 43.0-75.0 [facility] Comment on above: Performed By: #### S PUTGS #### [facility] [address] [place] [address] Dr. Johnna Dixon Platelet mean volume (Bld) [Entitic vol] 9.5 fL Normal 9.5-13.5 [facility] Comment on above: Performed By: #### S PUTGS #### [facility] [address] [place] [address] Dr. Johnna Dixon PLT 213 103/ul Normal 150-450 [facility] Comment on above: Performed By: #### S PUTGS #### [facility] [address] [place] [address] Dr. Johnna Dixon RBC 4.17 106/ul Critically low 4.70-6.10 [facility] Comment on above: Performed By: #### S PUTGS #### [facility] [address] [place] [address] Dr. Johnan Dixon WBC 5.0 103/ul Normal 4.0-11.0 [facility] Comment on above: Performed By: #### S PUTGS #### [facility] [address] [place] [address] Dr. Johnna Dixon CULTURE BLOODon 10-05-2022 Microscopic examination of blood, culture Culture Observations: NO GROWTH AT 5 DAYS. Normal [facility] Comment on above: Performed By: #### B LDCX2 #### [facility] [address] [place] [address] Dr. Johnna Dixon Microscopic examination of blood, culture Culture Observations: NO GROWTH AT 5 DAYS. Normal [facility] Comment on above: Performed By: #### S PUTGS #### [facility] [address] [place] [address] Dr. Johnna Dixon CULTURE SPUTUMon 10-05-2022 CULTURE SPUTUM Culture Observations: NORMAL RESPIRATORY JONATAN. Normal [facility] Comment on above: Performed By: #### S PUTGS #### [facility] [address] [place] [address] Dr. Johnna Dixon [facility]-19 SARS-CoV-2 (COVID-19) RNA REX+probe Ql (Unsp spec) Not detected Normal NOT DETECTED [facility] Comment on above: Result Comment: This test is not yet approved or cleared by the [place] FDA. When there are no FDA-approved or cleared tests available, and other criteria are met, FDA can make tests available under an emergency access mechanism called an Emergency Use Authorization (EUA). The EUA for this test is supported by the [employer] of Health and Human Service's (HHS's) declaration [...] SARS-CoV-2. Performed By: #### C VDTBH #### [facility] [address] [place] [address] Dr. Johnna Dixon LACTATE/LACTIC ACIDon 2022 Lactate [Moles/Vol] 1.2 mmol/L Normal 0.4-2.0 [facility] Comment on above: Performed By: #### L ACT #### [facility] [address] [place] [address] Dr. Johnna Dixon Lactate [Moles/Vol] 2.4 mmol/L Critically high 0.4-2.0 [facility] Comment on above: Performed By: #### L ACT #### [facility] [address] [place] [address] Dr. Johnna Dixon PROF CHEM 8 (BAS METB)on Anion gap [Moles/Vol] 12.6 mmol/L Normal [facility] Comment on above: Performed By: #### B MP #### [facility] [address] [place] [address] Dr. Johnna Dixon Calcium [Mass/Vol] 8.9 mg/dL Normal 8.5-10.1 [facility] Comment on above: Performed By: #### B MP #### [facility] [address] [place], [place] [id number] Dr. Johnna Dixon Chloride [Moles/Vol] 106 mmol/L Normal 98-107 [facility] Comment on above: Performed By: #### B MP #### [facility] [address] [address] [address] Johnna Dixon CO2 [Moles/Vol] 25.8 mmol/L Normal 21.0-32.0 [facility] Comment on above: Performed By: #### B MP #### [facility] [address] [address] [address] Johnna Dixon Creatinine [Mass/Vol] 1.41 mg/dL Critically high 0.70-1.30 [facility] Comment on above: Performed By: #### B MP #### [facility] [address] [place] [address] Dr. Johnna Dixon EGFR-AF HONDURAN >60 Normal >=60 [facility] Comment on above: Performed By: #### B MP #### [facility] [address] [address] [address] Johnna Dixon EGFR-NON AF HONDURAN 50 mL/min/1.73m2 Critically low >=60 [facility] Comment on above: Performed By: #### B MP #### [facility] [address] [address] [address] Johnna Dixon Glucose [Mass/Vol] 111 mg/dL Critically high 74-106 [facility] Comment on above: Performed By: #### B MP #### [facility] [address] [address] [address] Johnna Dixon Potassium [Moles/Vol] 3.4 mmol/L Critically low 3.5-5.1 [facility] Comment on above: Performed By: #### B MP #### [facility] [address] [address] [address] Johnna Dixon Sodium [Moles/Vol] 141 mmol/L Normal 136-145 [facility] Comment on above: Performed By: #### B MP #### [facility] [address] [address] [address] Johnna Dixon Urea nitrogen [Mass/Vol] 17.0 mg/dL Normal 7.0-18.0 [facility] Comment on above: Performed By: #### B MP #### [facility] [address] [address] [address] Johnna Dixon Urea nitrogen/Creatinine [Mass ratio] 12.1 mg/mg Normal [facility] Comment on above: Performed By: #### B MP #### [facility] [address] [address] [address] Johnna Dixon SPUTUM GRAM STAINon 10-06-19 COMMENTS Normal [facility] Comment on above: Performed By: #### S PUTGS #### [facility] [address] [address] [address] Johnna Dixon DIPHTHEROIDS [facility] Comment on above: Performed By: #### S PUTGS #### [facility] [address] [place] [address] Dr. Johnna Dixon EPITHELIALS <25 Normal [facility] Comment on above: Performed By: #### S PUTGS #### [facility] [address] [address] [address] Johnna Dixon FUNGAL ELEMENTS Normal [facility] Comment on above: Performed By: #### S PUTGS #### [facility] [address] [address] [address] Johnna MILLS NEG BACILLI FEW [facility] Comment on above: Performed By: #### S PUTGS #### [facility] [address] [address] [address] Johnna MILLS NEG DIPPLOCOCCI [facility] Comment on above: Performed By: #### S PUTGS #### [facility] [address] [address] [address] Johnna MILLS POS BACILLI [facility] Comment on above: Performed By: #### S PUTGS #### [facility] [address] [address] [address] Johnna Dixon GRAM POSITIVE COCCI FEW Normal [facility] Comment on above: Performed By: #### S PUTGS #### [facility] [address] [place] [address] [id number] [address] Johnna Dixon WBC (Bld) [#/Vol] 10*3/uL Normal [facility] Comment on above: Performed By: #### S PUTGS #### [facility] [address] [place] [address] Dr. Johnna Dixon SYMPTOMATIC COVID-19 ANTIGEN on 10-05-2022 EUA Statement SEE BELOW Normal [facility] Comment on above: Result Comment: [...] sooner. Performed By: #### C VDAGS #### [facility] [address] [place] [address] Dr. Johnna Dixon SARS-CoV-2 (COVID-19) RNA REX+probe Ql (Unsp spec) Negative Normal NEGATIVE [facility] Comment on above: Performed By: #### C VDAGS #### [facility] [address] [place], [place] [id number] Dr. Johnna Dixon XR CHEST 1 Von [...] SOCORRO SERRANO Date: 2022-10-05 11:44 Normal [facility] US SINGLE QUAD RT UPPERon US [...] SOCORRO HUFFMAN Date: 2022-09-24 09:46 Normal [facility] AMYLASEon 09-21-2022 Amylase [Catalytic activity/Vol] 78 U/L Normal 25-115 [facility] Comment on above: Performed By: #### C VDTB #### [facility] [address] [place] [address] Dr. Johnna Dixon CBC AUTO DIFFon 09-21-2022 BASO # 0.0 103/ul Normal 0.0-0.1 [facility] Comment on above: Performed By: #### C VDTB #### [facility] [address] [place] [address] Dr. Johnna Dixon Basophils/100 WBC (Bld) 0.5 % Normal 0.2-2.0 [facility] Comment on above: Performed By: #### C VDTB #### [facility] [address] [place] [address] Dr. Johnna Dixon EO # 0.1 103/ul Normal 0.0-0.7 [facility] Comment on above: Performed By: #### C VDTBH #### [facility] [address] [place] [address] Dr. Johnna Dixon Eosinophils/100 WBC (Bld) 1.9 % Normal 0.9-7.0 [facility] Comment on above: Performed By: #### C VDTBH #### [facility] [address] [place] [address] Dr. Johnna Dixon Erythrocyte distribution width (RBC) [Ratio] 14.5 % Normal 11.0-15.0 [facility] Comment on above: Performed By: #### C VDTBH #### [facility] [address] [place] [address] Dr. Johnna Dixon Hematocrit (Bld) [Volume fraction] 39.1 % Critically low 42.0-54.0 [facility] Comment on above: Performed By: #### C VDTBH #### [facility] [address] [place] [address] Dr. Johnna Dixon Hemoglobin (Bld) [Mass/Vol] 12.8 g/dL Critically low 14.0-18.0 [facility] Comment on above: Performed By: #### C VDTBH #### [facility] [address] [place] [address] Dr. Johnna Dixon IG # 0.05 10e3/ul Critically high 0.00-0.03 [facility] Comment on above: Performed By: #### C VDTBH #### [facility] [address] [place] [address] Dr. Johnna Dixon IG % 0.7 % Critically high 0.0-0.5 [facility] Comment on above: Performed By: #### C VDTBH #### [facility] [address] [place] [address] Dr. Johnna Dixon LYMPH # 2.0 103/ul Normal 1.2-3.8 [facility] Comment on above: Performed By: #### C VDTBH #### [facility] [address] [place] [address] Dr. Johnna Dixon Lymphocytes/100 WBC (Bld) 27.4 % Normal 20.5-60.0 [facility] Comment on above: Performed By: #### C VDTBH #### [facility] [address] [place] [address] Dr. Johnna Dixon MANUAL DIFF REQ NO Normal [facility] Comment on above: Performed By: #### C VDTBH #### [facility] [address] [place] [address] Dr. Johnna Dixon MCH (RBC) [Entitic mass] 31.3 pg Normal 25.9-34.0 [facility] Comment on above: Performed By: #### C VDTBH #### [facility] [address] [place] [address] Dr. Johnna Dixon MCHC (RBC) [Mass/Vol] 32.7 g/dL Normal 29.9-35.2 [facility] Comment on above: Performed By: #### C VDTBH #### [facility] [address] [place] [address] Dr. Johnna Dixon MCV (RBC) [Entitic vol] 95.6 fL Critically high 80.0-94 .0 [facility] Comment on above: Performed By: #### C VDTBH #### [facility] [address] [place] [address] Dr. Johnna Dixon MONO # 0.5 103/ul Normal 0.3-0.8 [facility] Comment on above: Performed By: #### C VDTBH #### [facility] [address] [place] [address] Dr. Johnna Dixon Monocytes/100 WBC (Bld) 6.9 % Normal 1.7-12.0 [facility] Comment on above: Performed By: #### C VDTBH #### [facility] [address] [place] [address] Dr. Johnna Dixon NEUT # 4.7 103/ul Normal 1.4-6.5 [facility] Comment on above: Performed By: #### C VDTBH #### [facility] [address] [place] [address] Dr. Johnna Dixon Neutrophils/100 WBC (Bld) 62.6 % Normal 43.0-75.0 [facility] Comment on above: Performed By: #### C VDTBH #### [facility] [address] [place] [address] Dr. Johnna Dixon Platelet mean volume (Bld) [Entitic vol] 9.3 fL Critically low 9.5-13.5 [facility] Comment on above: Performed By: #### C VDTBH #### [facility] [address] [place] [address] Dr. Johnna Dixon PLT 235 103/ul Normal 150-450 [facility] Comment on above: Performed By: #### C VDTBH #### [facility] [address] [place] [address] Dr. Johnna Dixon RBC 4.09 106/ul Critically low 4.70-6.10 [facility] Comment on above: Performed By: #### C VDTBH #### [facility] [address] [place] [address] Dr. Johnna Dixon WBC 7.4 103/ul Normal 4.0-11.0 [facility] Comment on above: Performed By: #### C VDTBH #### [facility] [address] [place] [address] Dr. Johnna Dixon LIPASEon 09-21-2022 Lipase [Catalytic activity/Vol] 114.0 U/L Normal 73.0-393.0 [facility] Comment on above: Performed By: #### C VDAGS #### [facility] [address] [place] [address] Dr. Johnna Dixon LIVER PROFILEon 09-21-2022 Albumin [Mass/Vol] 3.9 g/dL Normal 3.4-5.0 [facility] Comment on above: Performed By: #### C VDTBH #### [facility] [address] [place] [address] Dr. Johnna Dixon Albumin/Globulin [Mass ratio] 1.6 {ratio} Normal [facility] Comment on above: Performed By: #### C VDTBH #### [facility] [address] [place] [address] Dr. Johnna Dixon ALP [Catalytic activity/Vol] 59 U/L Normal 46-116 [facility] Comment on above: Performed By: #### C VDTBH #### [facility] [address] [place] [address] Dr. Johnna Dixon ALT [Catalytic activity/Vol] 23 U/L Normal 16-63 [facility] Comment on above: Performed By: #### C VDTBH #### [facility] [address] [address] [address] Johnna Dixon AST [Catalytic activity/Vol] 8 U/L Critically low 15-37 [facility] Comment on above: Performed By: #### C VDTBH #### [facility] [address] [place] [address] Dr. Johnna Dixon BILI, CONJUGATED 0.1 mg/dL Normal 0.0-0.2 [facility] Comment on above: Performed By: #### C VDTBH #### [facility] [address] [place] [address] Dr. Johnna Dixon Bilirubin [Mass/Vol] 0.3 mg/dL Normal 0.2-1.0 [facility] Comment on above: Performed By: #### C VDTBH #### [facility] [address] [place] [address] Dr. Johnna Dixon Globulin (S) [Mass/Vol] 2.5 g/dL Normal [facility] Comment on above: Performed By: #### C VDTBH #### [facility] [address] [place] [address] Dr. Johnna Dixon Protein [Mass/Vol] 6.4 g/dL Normal 6.4-8.2 [facility] Comment on above: Performed By: #### C VDTBH #### [facility] [address] [place] [address] Dr. Johnna Dixon PROF CHEM 8 (BAS METB)on Anion gap [Moles/Vol] 13.4 mmol/L Normal [facility] Comment on above: Performed By: #### C VDTBH #### [facility] [address] [address] [address] Johnna Dixon Calcium [Mass/Vol] 8.9 mg/dL Normal 8.5-10.1 [facility] Comment on above: Performed By: #### C VDTBH #### [facility] [address] [address] [address] Johnna Dixon Chloride [Moles/Vol] 106 mmol/L Normal 98-107 [facility] Comment on above: Performed By: #### C VDTBH #### [facility] [address] [address] [address] Johnna Dixon CO2 [Moles/Vol] 25.6 mmol/L Normal 21.0-32.0 [facility] Comment on above: Performed By: #### C VDTBH #### [facility] [address] [place] [address] Dr. Johnna Dixon Creatinine [Mass/Vol] 1.21 mg/dL Normal 0.70-1.30 [facility] Comment on above: Performed By: #### C VDTBH #### [facility] [address] [address] [address] Johnna Dixon EGFR-AF HONDURAN >60 Normal >=60 [facility] Comment on above: Performed By: #### C VDTBH #### [facility] [address] [place] [address] Dr. Johnna Dixon EGFR-NON AF HONDURAN 59 mL/min/1.73m2 Critically low >=60 [facility] Comment on above: Performed By: #### C VDTBH #### [facility] [address] [address] [address] Johnna Dixon Glucose [Mass/Vol] 115 mg/dL Critically high 74-106 [facility] Comment on above: Performed By: #### C VDTBH #### [facility] [address] [place] [address] Dr. Johnna Dixon Potassium [Moles/Vol] 4.0 mmol/L Normal 3.5-5.1 [facility] Comment on above: Performed By: #### C VDTBH #### [facility] [address] [address] [address] Johnna Dixon Sodium [Moles/Vol] 141 mmol/L Normal 136-145 [facility] Comment on above: Performed By: #### C VDTBH #### [facility] [address] [address] [address] Johnna Dixon Urea nitrogen [Mass/Vol] 19.0 mg/dL Critically high 7.0-18.0 [facility] Comment on above: Performed By: #### C VDTBH #### [facility] [address] [address] [address] Johnna Dixon Urea nitrogen/Creatinine [Mass ratio] 15.7 mg/mg Normal [facility] Comment on above: Performed By: #### C VDTBH #### [facility] [address] [place] [address] Dr. Johnna Dixon CREATININEon 08-04-2022 Creatinine [Mass/Vol] 1.31 mg/dL Critically high 0.70-1.30 [facility] Comment on above: Performed By: #### C JANIS #### [facility] [address] [address] [address] Johnna Dixon EGFR-AF HONDURAN >60 Normal >=60 [facility] Comment on above: Performed By: #### C JANIS #### [facility] [address] [place] [address] Dr. Johnna Dixon EGFR-NON AF HONDURAN 54 mL/min/1.73m2 Critically low >=60 [facility] Comment on above: Performed By: #### C JANIS #### [facility] [address] [place] [address] Dr. Johnna Dixon CTA NECK WO W [...] by: ALLI CORTES Date: 2022-08-04 14:04 Normal [facility] US CAROTID ART BILon 023 US [...] ALLI CORTES Date: 2022-07-28 12:00 Normal [facility] XR KNEE RT 4V or >on [...] DEBORAH ZARAGOZA Date: 2022-06-30 17:38 Normal [facility] XR RIBS RT PA Fab 2 [...] SOCORRO SERRANO Date: 2022-05-25 14:51 Normal [facility] XR RIBS RT PA Fab 2 [...] atelectasis and small pleural effusion Normal [facility] CT CHEST WO CONon 04-18-2022 CT [...] by: SOCORRO BANSAL Date: 2022-04-18 16:17 Normal [facility] CULTURE URINEon 03-12-2022 CULTURE URINE Culture Observations: NO GROWTH. Normal [facility] Comment on above: Performed By: #### S PUTGS #### [facility] [address] [address] [address] Johnna Dixon COVID-19 Positive/NegativeOr dered By: Lionel Whitney on 02-13-2022 SARS-CoV-2 (COVID-19) N gene REX+probe Ql (Resp) Negative Negative [facility] Comment on above: Testing for SARS-CoV -2 by RT-PCR This test was developed and its performance characteristics determined by [employer] ([employer]) and validated at the [facility]. This test has not been [...] aPTT Coag (PPP) [Time] 34.8 s 25.1-36.5 [facility] Basophils Auto (Bld) [#/Vol] Ordered By: Lionel Whitney on 02-06-2022 Basophils (Bld) [#/Vol] 0.0 10*3/uL 0.0-0.2 [facility] Basophils/100 WBC Auto (Bld) Ordered By: Lionel Whitney on 02-06-2022 Basophils/100 WBC (Bld) 0.8 % . [facility] Blood hemoglobin measurement (mass/volume)Ordered By: Lionel Whitney on 02-06-2022 Hemoglobin (Bld) [Mass/Vol] 13.2 g/dL 13.0-17.0 [facility] Blood leukocytes automated c ount (number/volume)Ordered By: Lionel Whitney on 02-06-2022 WBC (Bld) [#/Vol] 5.7 10*3/uL 4.5-11.0 [facility] Creatinine and Glomerular fi ltration rate.predicted panel (S/P/Bld)Ordered By: Lionel Whitney on 02-06-2022 Creatinine [Mass/Vol] 1.21 mg/dL 0.64-1.[address] [facility] Eosinophils Auto (Bld) [#/Vo l]Ordered By: Lionel Whitney on 02-06-2022 Eosinophils (Bld) [#/Vol] 0.1 10*3/uL 0.0-0.45 [facility] Eosinophils/100 WBC Auto (Bl d)Ordered By: Lionel Whitney on 02-06-2022 Eosinophils/100 WBC (Bld) 1.7 % . [facility] Erythrocyte distribution wid th Auto (RBC) [Ratio]Ordered By: Lionel Whitney on 02-06-2022 Erythrocyte distribution width (RBC) [Ratio] 14.2 % 12.0-14.8 [facility] Estimated glomerular filtrat ion rate (GFR) non- AmericanOrdered By: Lionel Whitney on 02-06-2022 GFR/1.73 sq M.predicted among non-blacks MDRD (S/P/Bld) [Vol rate/Area] 59 mL/Min [facility] Hematocrit Auto (Bld) [Volum e fraction]Ordered By: Lionel Whitney on 02-06-2022 Hematocrit (Bld) [Volume fraction] 40.8 % 38.8-50.0 [facility] Laboratory - CoagulationOrde red By: Lionel Whitney on 02-06-2022 PT Coag (PPP) [Time] 11.0 s 9.0-12.9 [facility] - Hematology and Cell countsOrdered By: Lionel Whitney on 02-06-2022 Nucleated RBC/100 WBC (Bld) [Ratio] 0.1 % 0-0.5 [facility] Lymphocytes Auto (Bld) [#/Vo l]Ordered By: Lionel Whitney on 02-06-2022 Lymphocytes (Bld) [#/Vol] 1.6 10*3/uL 1.00-4.8 [facility] Lymphocytes/100 WBC Auto (Bl d)Ordered By: Lionel Whitney on 02-06-2022 Lymphocytes/100 WBC (Bld) 27.4 % . [facility] MCH Auto (RBC) [Entitic mass ]Ordered By: Lionel Whitney on 02-06-2022 MCH (RBC) [Entitic mass] 29.7 pg 27.5-35.2 [facility] MCHC Auto (RBC) [Mass/Vol]Or dered By: Lionel Whitney on 02-06-2022 MCHC (RBC) [Mass/Vol] 32.4 g/dL 32.5-35.[address] [facility] MCV Auto (RBC) [Entitic vol] Ordered By: Lionel Whitney on 02-06-2022 MCV (RBC) [Entitic vol] 91.6 fL 83.5-101 [facility] Monocytes Auto (Bld) [#/Vol] Ordered By: Lionel Whitney on 02-06-2022 Monocytes (Bld) [#/Vol] 0.5 10*3/uL 0.0-0.8 [facility] Monocytes/100 WBC Auto (Bld) Ordered By: Lionel Whitney on 02-06-2022 Monocytes/100 WBC (Bld) 8.7 % . [facility] Neutrophils Auto (Bld) [#/Vo l]Ordered By: Lionel Whitney on 02-06-2022 Neutrophils (Bld) [#/Vol] 3.5 10*3/uL 1.8-7.7 [facility] Neutrophils/100 WBC Auto (Bl d)Ordered By: Lionel Whitney on 02-06-2022 Neutrophils/100 WBC (Bld) 61.4 % . [facility] No Panel InformationOrdered By: Lionel Whitney on 02-06-2022 Estimated GFR () > 60 mL/Min [facility] Comment on above: GFR estimated refere nce range: According to KDOQI guidelines, <60 ml/min/1.73m2 is sufficient to diagnose a patient with chronic kidney disease. Pharmacy Creatinine Clearance (Chem N/A [facility] Platelet mean volume Auto (B ld) [Entitic vol]Ordered By: Lionel Whitney on 02-06-2022 Platelet mean volume (Bld) [Entitic vol] 8.4 fL 6.6-10.1 [facility] Platelet poor plasma interna tional normalized ratio (INR) by coagulation assay (relatOrdered By: Lionel Whitney on 02-06-2022 INR Coag (PPP) [Relative time] 1.0 {INR} [facility] Comment on above: INR Therapeutic [...] Platelets (Bld) [#/Vol] 248 10*3/uL 150-450 [facility] RBC Auto (Bld) [#/Vol]Ordere d By: Lionel Whitney on 02-06-2022 RBC (Bld) [#/Vol] 4.45 10*6/uL 3.90-5.60 [facility] Serum or plasma calcium eliezer urement (mass/volume)Ordered By: Lionel Whitney on 02-06-2022 Calcium [Mass/Vol] 9.7 mg/dL 8.2-10.2 [facility] Serum or plasma chloride sammy surement (moles/volume)Ordered By: Lionel Whitney on 02-06-2022 Chloride [Moles/Vol] 99 mmol/L 95-114 [facility] Serum or plasma glucose eliezer urement (mass/volume)Ordered By: iLonel Whitney on 02-06-2022 Glucose [Mass/Vol] 99 mg/dL 70-100 [facility] Comment on above: ADA recommended refe rence range Random Glucose Reference Range is dependent on time and content of last meal. Glucose of more than 200 mg/dL in a nonstressed, ambulatory subject supports the diagnosis of Diabetes Mellitus. Serum or plasma potassium me asurement (moles/volume)Ordered By: Lionel Whitney on 02-06-2022 Potassium [Moles/Vol] 4.4 mmol/L 3.5-5.[address] [facility] Serum or plasma sodium measu rement (moles/volume)Ordered By: Lionel Whitney on 02-06-2022 Sodium [Moles/Vol] 135 mmol/L 136-146 [facility] Serum or plasma total carbon dioxide measurement (moles/volume)Ordered By: Lionel Whitney on 02-06-2022 CO2 [Moles/Vol] 26.2 mmol/L 22.0-30.0 [facility] Serum or plasma urea nitroge n measurement (mass/volume)Ordered By: Lionel Whitney on 02-06-2022 Urea nitrogen [Mass/Vol] 20 mg/dL 9-23 [facility] COVID-19 Positive/NegativeOr dered By: Lionel Whitney on 10-27-2021 SARS-CoV-2 (COVID-19) N gene REX+probe Ql (Resp) Negative Negative [facility] Comment on above: Testing for SARS-CoV -2 by RT-PCR This test was developed and its performance characteristics determined by [employer] ([employer]) and validated at the [facility]. This test has not been [...] aPTT Coag (PPP) [Time] 36.2 s 25.1-36.5 [facility] Basophils Auto (Bld) [#/Vol] Ordered By: Lionel Whitney on 10-17-2021 Basophils (Bld) [#/Vol] 0.0 10*3/uL 0.0-0.2 [facility] Basophils/100 WBC Auto (Bld) Ordered By: Lionel Whitney on 10-17-2021 Basophils/100 WBC (Bld) 0.6 % [facility] Blood hemoglobin measurement (mass/volume)Ordered By: Lionel Whitney on 10-17-2021 Hemoglobin (Bld) [Mass/Vol] 13.6 g/dL 13.0-17.0 [facility] Blood leukocytes automated c ount (number/volume)Ordered By: Lionel Whitney 10-17-2021 WBC (Bld) [#/Vol] 5.9 10*3/uL 4.5-11.0 [facility] Creatinine and Glomerular fi ltration rate.predicted panel (S/P/Bld)Ordered By: Lionel Whitney on 10-17-2021 Creatinine [Mass/Vol] 0.96 mg/dL 0.64-1.[address] [facility] Eosinophils Auto (Bld) [#/Vo l]Ordered By: Lionel Whitney on 10-17-2021 Eosinophils (Bld) [#/Vol] 0.1 10*3/uL 0.0-0.45 [facility] Eosinophils/100 WBC Auto (Bl d)Ordered By: Lionel Whitney on 10-17-2021 Eosinophils/100 WBC (Bld) 2.0 % [facility] Erythrocyte distribution wid th Auto (RBC) [Ratio]Ordered By: Lionel Whitney on 10-17-2021 Erythrocyte distribution width (RBC) [Ratio] 14.5 % 12.0-14.8 [facility] Estimated glomerular filtrat ion rate (GFR) non- AmericanOrdered By: Lionel Whitney on 10-17-2021 GFR/1.73 sq M.predicted among non-blacks MDRD (S/P/Bld) [Vol rate/Area] > 60 mL/Min [facility] Hematocrit Auto (Bld) [Volum e fraction]Ordered By: Lionel Whitney on 10-17-2021 Hematocrit (Bld) [Volume fraction] 41.5 % 38.8-50.0 [facility] Laboratory - CoagulationOrde red By: Lionel Whitney on 10-17-2021 PT Coag (PPP) [Time] 11.0 s 9.0-12.9 [facility] - Hematology and Cell countsOrdered By: Lionel Whitney on 10-17-2021 Nucleated RBC/100 WBC (Bld) [Ratio] 0.0 % 0-0.5 [facility] Lymphocytes Auto (Bld) [#/Vo l]Ordered By: Lionel Whitney on 10-17-2021 Lymphocytes (Bld) [#/Vol] 1.6 10*3/uL 1.00-4.8 [facility] Lymphocytes/100 WBC Auto (Bl d)Ordered By: Lionel Whitney on 10-17-2021 Lymphocytes/100 WBC (Bld) 26.8 % [facility] MCH Auto (RBC) [Entitic mass ]Ordered By: Lionel Whitney on 10-17-2021 MCH (RBC) [Entitic mass] 29.3 pg 27.5-35.2 [facility] MCHC Auto (RBC) [Mass/Vol]Or dered By: Lionel Whintey on 10-17-2021 MCHC (RBC) [Mass/Vol] 32.7 g/dL 32.5-35.[address] [facility] MCV Auto (RBC) [Entitic vol] Ordered By: Lionel Whitney on 10-17-2021 MCV (RBC) [Entitic vol] 89.8 fL 83.5-101 [facility] Monocytes Auto (Bld) [#/Vol] Ordered By: Lionel Whitney on 10-17-2021 Monocytes (Bld) [#/Vol] 0.6 10*3/uL 0.0-0.8 [facility] Monocytes/100 WBC Auto (Bld) Ordered By: Lionel Whitney on 10-17-2021 Monocytes/100 WBC (Bld) 10.6 % [facility] Neutrophils Auto (Bld) [#/Vo l]Ordered By: Lionel Whitney on 10-17-2021 Neutrophils (Bld) [#/Vol] 3.5 10*3/uL 1.8-7.7 [facility] Neutrophils/100 WBC Auto (Bl d)Ordered By: Lionel Whitney on 10-17-2021 Neutrophils/100 WBC (Bld) 60.0 % [facility] No Panel InformationOrdered By: Lionel Whitney on 10-17-2021 Estimated GFR () > 60 mL/Min [facility] Comment on above: GFR estimated refere nce range: According to KDOQI guidelines, <60 ml/min/1.73m2 is sufficient to diagnose a patient with chronic kidney disease. Pharmacy Creatinine Clearance (Chem N/A [facility] Platelet mean volume Auto (B ld) [Entitic vol]Ordered By: Lionel Whitney on 10-17-2021 Platelet mean volume (Bld) [Entitic vol] 8.3 fL 6.6-10.1 [facility] Platelet poor plasma interna tional normalized ratio (INR) by coagulation assay (relatOrdered By: Lionel Whitney on 10-17-2021 INR Coag (PPP) [Relative time] 1.0 {INR} [facility] Comment on above: INR Therapeutic [...] Platelets (Bld) [#/Vol] 249 10*3/uL 150-450 [facility] RBC Auto (Bld) [#/Vol]Ordere d By: Lionel Whitney on 10-17-2021 RBC (Bld) [#/Vol] 4.62 10*6/uL 3.90-5.60 [facility] Serum or plasma calcium eliezer urement (mass/volume)Ordered By: Lionel Whitney on 10-17-2021 Calcium [Mass/Vol] 9.7 mg/dL 8.2-10.2 [facility] Serum or plasma chloride sammy surement (moles/volume)Ordered By: Lionel Whitney on 10-17-2021 Chloride [Moles/Vol] 101 mmol/L 95-114 [facility] Serum or plasma glucose eliezer urement (mass/volume)Ordered By: Lionel Whitney on 10-17-2021 Glucose [Mass/Vol] 87 mg/dL 70-100 [facility] Comment on above: ADA recommended refe rence range Random Glucose Reference Range is dependent on time and content of last meal. Glucose of more than 200 mg/dL in a nonstressed, ambulatory subject supports the diagnosis of Diabetes Mellitus. Serum or plasma potassium me asurement (moles/volume)Ordered By: Lionel Whitney on 10-17-2021 Potassium [Moles/Vol] 4.4 mmol/L 3.5-5.[address] [facility] Serum or plasma sodium measu rement (moles/volume)Ordered By: Lionel Whitney on 10-17-2021 Sodium [Moles/Vol] 136 mmol/L 136-146 [facility] Serum or plasma total carbon dioxide measurement (moles/volume)Ordered By: Lionel Whitney on 10-17-2021 CO2 [Moles/Vol] 25.6 mmol/L 22.0-30.0 [facility] Serum or plasma urea nitroge n measurement (mass/volume)Ordered By: Lionel Whitney on 10-17-2021 Urea nitrogen [Mass/Vol] 18 mg/dL 03-13 [facility] Vital Signs Date Time Vital Sign Value Performing Clinician Castillo prince 08-02-2024 08:33-0500 Body temperature 97.5 [degF] Norberto Andrade MD Work Phone: [facility] 08-02-2024 08:33-0500 Body weight 88.5 kg Norberto Andrade MD Work Phone: [facility] 08-02-2024 08:33-0500 Diastolic blood pressure 79 mm[Hg] Norberto Andrade MD Work Phone: [facility] 08-02-2024 08:33-0500 Heart rate 80 /min Norberto Andrade MD Work Phone: [facility] 08-02-2024 08:33-0500 Respiratory rate 18 /min Norberto Andrade MD Work Phone: [facility] 08-02-2024 08:33-0500 SaO2% (BldA) [Mass fraction] 96 % Norberto Andrade MD Work Phone: [facility] 08-02-2024 08:33-0500 Systolic blood pressure 131 mm[Hg] Norberto Andrade MD Work Phone: [facility] 07-19-2024 10:43-0500 Body temperature 97.2 [degF] Norberto Andrade MD Work Phone: [facility] 07-19-2024 10:43-0500 Body weight 86.7 kg Norberto Andrade MD Work Phone: [facility] 07-19-2024 10:43-0500 Diastolic blood pressure 74 mm[Hg] Norberto Andrade MD Work Phone: [facility] 07-19-2024 10:43-0500 Heart rate 81 /min Norberto Andrade MD Work Phone: [facility] 07-19-2024 10:43-0500 Respiratory rate 18 /min Norberto Andrade MD Work Phone: [facility] 07-19-2024 10:43-0500 SaO2% (BldA) [Mass fraction] 97 % Norberto Andrade MD Work Phone: [facility] 07-19-2024 10:43-0500 Systolic blood pressure 121 mm[Hg] Norberto Andrade MD Work Phone: [facility] 07-17-2024 11:17-0500 Diastolic blood pressure 80 mm[Hg] Cady Espinosa MD Work Phone: [facility] 07-17-2024 11:17-0500 Systolic blood pressure 142 mm[Hg] Cady Espinosa MD Work Phone: [facility] 07-17-2024 10:51-0500 Body height 182.9 cm Cady Espinosa MD Work Phone: [facility] 07-17-2024 10:51-0500 Body mass index (BMI) [Ratio] 26.5 kg/m2 Cady Espinosa MD Work Phone: [facility] 07-17-2024 10:51-0500 Body weight 88.63 kg Cady Espinosa MD Work Phone: [facility] 07-17-2024 10:51-0500 Heart rate 72 /min Cady Espinosa MD Work Phone: [facility] 07-12-2024 09:50-0500 Blood Pressure Location Lionel WHITNEY [facility] 07-12-2024 09:50-0500 Diastolic blood pressure 82 mm[Hg] Lionel WHITNEY [facility] 07-12-2024 09:50-0500 Heart rate 70 /min Lionel WHITNEY [facility] 07-12-2024 09:50-0500 Respiratory rate 16 /min Lionel WHITNEY [facility] 07-12-2024 09:50-0500 Systolic blood pressure 132 mm[Hg] Lionel WHITNEY [facility] 05-08-2024 11:49-0500 Diastolic blood pressure 90 mm[Hg] Cady Espinosa MD Work Phone: [facility] 05-08-2024 11:49-0500 Systolic blood pressure 180 mm[Hg] Cady Espinosa MD Work Phone: [facility] 05-08-2024 11:28-0500 Heart rate 67 /min Cady Espinosa MD Work Phone: [facility] 05-08-2024 11:27-0500 Body height 182.9 cm Cady Espinosa MD Work Phone: [facility] 05-08-2024 11:27-0500 Body mass index (BMI) [Ratio] 25.96 kg/m2 Cady Espinosa MD Work Phone: [facility] 05-08-2024 11:27-0500 Body weight 86.82 kg Cady Espinosa MD Work Phone: [facility] 03-28-2024 14:58-0400 Body height 182.88 cm [facility] 03-28-2024 14:58-0400 Body mass index (BMI) [Ratio] 24.7 kg/m2 [facility] 03-28-2024 14:58-0400 Body weight 83 kg [facility] 10-11-2023 15:27-0400 Body height 182.88 cm MD Deandre Monterroso Work Phone: [facility] 10-11-2023 15:27-0400 Body mass index (BMI) [Ratio] 25 kg/m2 MD Deandre Monterroso Work Phone: [facility] 10-11-2023 15:27-0400 Body temperature 97.2 [degF] MD Deandre Monterroso Work Phone: [facility] 10-11-2023 15:27-0400 Body weight 83.91 kg MD Deandre Monterroso Work Phone: [facility] 10-11-2023 15:27-0400 Diastolic blood pressure 88 mm[Hg] MD Deandre Monterroso Work Phone: [facility] 10-11-2023 15:27-0400 Heart rate 79 /min MD Deandre Monterroso Work Phone: [facility] 10-11-2023 15:27-0400 Systolic blood pressure 146 mm[Hg] MD Deandre Monterroso Work Phone: [facility] 10-04-2023 10:35-0400 Blood Pressure Location Lionel WHITNEY [facility] 10-04-2023 10:35-0400 Diastolic blood pressure 88 mm[Hg] Lionel WHITNEY [facility] 10-04-2023 10:35-0400 Heart rate 72 /min Lionel WHITNEY [facility] 10-04-2023 10:35-0400 Respiratory rate 16 /min Lionel WHITNEY [facility] 10-04-2023 10:35-0400 Systolic blood pressure 136 mm[Hg] Lionel WHITNEY [facility] 08-12-2023 11:10-0500 Body height 182.88 cm MD Deandre Monterroso Work Phone: [facility] 08-12-2023 11:10-0500 Body mass index (BMI) [Ratio] 24.3 kg/m2 MD Deandre Monterroso Work Phone: [facility] 08-12-2023 11:10-0500 Body weight 81.19 kg MD Deandre Monterroso Work Phone: [facility] 02-10-2023 14:16-0400 Blood Pressure Location ID [facility] 02-10-2023 14:16-0400 Diastolic blood pressure 80 mm[Hg] ID [facility] 02-10-2023 14:16-0400 Heart rate 70 /min [facility] 02-10-2023 14:16-0400 Respiratory rate 16 /min [facility] 02-10-2023 14:16-0400 Systolic blood pressure 124 mm[Hg] ID [facility] 12-03-2022 10:20-0400 Body height 182.88 cm Zoran Chavez Other [employer] Other 12-03-2022 10:20-0400 Body mass index (BMI) [Ratio] 25.49 kg/m2 Zoran Chavez Other [employer] Other 12-03-2022 10:20-0400 Body weight 85.28 kg Zoran Chavez Other [employer] Other 10-22-2022 10:20-0400 Body height 182.88 cm Zoran Chavez Other [employer] Other 10-22-2022 10:20-0400 Body mass index (BMI) [Ratio] 25.63 kg/m2 Zoran Chavez Other [facility] Other 10-22-2022 10:20-0400 Body weight 85.73 kg Zoran Chavez Other [employer] Other 10-22-2022 10:20-0400 Diastolic blood pressure 80 mm[Hg] Zoran Chavez Other [employer] [facility] [facility] Other 10-22-2022 10:20-0400 Systolic blood pressure 110 mm[Hg] Zoran Chavez Other [facility] Other 02-24-2022 10:43-0400 Blood Pressure Location Lionel WHITNEY [facility] 02-24-2022 10:43-0400 Diastolic blood pressure 80 mm[Hg] Lionel WHITNEY [facility] 02-24-2022 10:43-0400 Heart rate 65 /min Lionel WHITNEY [facility] 02-24-2022 10:43-0400 Respiratory rate 16 /min Lionel WHITNEY [facility] 02-24-2022 10:43-0400 Systolic blood pressure 140 mm[Hg] Lionel WHITNEY [facility] 02-17-2022 15:15-0400 Diastolic blood pressure 83 mm[Hg] MD Deandre Monterroso Work Phone: [facility] 02-17-2022 15:15-0400 Heart rate 58 /min MD Deandre Monterroso Work Phone: [facility] 02-17-2022 15:15-0400 Respiratory rate 16 /min MD Deandre Monterroso Work Phone: [facility] 02-17-2022 15:15-0400 SaO2% (BldA) [Mass fraction] 95 % MD Deandre Monterroso Work Phone: [facility] 02-17-2022 15:15-0400 Systolic blood pressure 166 mm[Hg] MD Deandre Monterroso Work Phone: [facility] 02-17-2022 14:30-0400 Body height 182.88 cm MD Deandre Monterroso Work Phone: [facility] 02-17-2022 14:30-0400 Body mass index (BMI) [Ratio] 26.2 kg/m2 MD Deandre Monterroso Work Phone: [facility] 02-17-2022 14:30-0400 Body weight 87.7 kg MD Deandre Monterroso Work Phone: [facility] 02-17-2022 14:17-0400 Body temperature 97.6 [degF] MD Deandre Monterroso Work Phone: [facility] 02-17-2022 13:52-0400 Inhaled oxygen flow rate 10 L/min MD Deandre Monterroso Work Phone: [facility] 10-17-2021 11:42-0400 Body height 180.34 cm MD Deandre Monterroso Work Phone: [facility] 10-17-2021 11:42-0400 Body mass index (BMI) [Ratio] 27 kg/m2 MD Deandre Monterroso Work Phone: [facility] 10-17-2021 11:42-0400 Body temperature 98.4 [degF] MD Deandre Monterroso Work Phone: [facility] 10-17-2021 11:42-0400 Body weight 88 kg MD Deandre Monterroso Work Phone: [facility] 10-17-2021 11:42-0400 Diastolic blood pressure 90 mm[Hg] MD Deandre Monterroso Work Phone: [facility] 10-17-2021 11:42-0400 Heart rate 64 /min MD Deandre Monterroso Work Phone: [facility] 10-17-2021 11:42-0400 SaO2% (BldA) [Mass fraction] 100 % MD Deandre Monterroso Work Phone: [facility] 10-17-2021 11:42-0400 Systolic blood pressure 172 mm[Hg] MD Deandre Monterroso Work Phone: [facility] Encounters Encounter Date Encounter Type Care Provider Facility Start: 08-02-2024 End: 08-02-2024 Nursing evaluation of patient and report Ma Nurse Enrique Trevino Work Phone: Hematology/Oncology Comment on above: Malignant neoplasm o f urinary bladder, unspecified site (HCC) (Primary Dx) Start: 08-02-2024 End: 08-02-2024 ambulatory Chair [address] Work Phone: Hematology/Oncology Comment on above: Malignant neoplasm o f urinary bladder, unspecified site (HCC) (Primary Dx) Start: 08-02-2024 End: 08-02-2024 Office outpatient visit 25 minutes Norberto Andrade MD Work Phone: Hematology/Oncology Comment on above: Malignant neoplasm o f urinary bladder, unspecified site (HCC) (Primary Dx) Start: 08-01-2024 End: 08-01-2024 Telephone encounter Financial Navigator Enrique Shannon Phone: Hematology/Oncology Comment on above: Benefits Investigati on (Good Day Mary,//I am your Financial Navigator, Esther. I wanted to reach out and introduce myself. I welcome the opportunity to meet with you as I can answer questions related to your health plan and any expected out of pocket costs while you are in treatment.//You will also find a survey attached to this message that can help me better serve your financial needs. You can complete this at your earliest convenience. Please feel free to stop in or call [phone] for any questions you may have. ) Start: 07-26-2024 End: 07-26-2024 Orders Only Estefani Vargas [facility] Work Phone: Hematology/Oncology Comment on above: Malignant neoplasm o f urinary bladder, unspecified site (HCC) (Primary Dx) Start: 07-19-2024 End: 07-19-2024 ambulatory NORBERTO ANDRADE Facility:[facility] Start: 07-19-2024 End: 07-19-2024 Office outpatient new 60 minutes Norberto Andrade MD Work Phone: Hematology/Oncology Comment on above: Malignant neoplasm o f urinary bladder, unspecified site (HCC) (Primary Dx) Start: 07-18-2024 End: 07-18-2024 Chart abstracting Norberto Andrade MD Work Phone: Hematology/Oncology Start: 07-17-2024 End: 07-17-2024 Office outpatient visit 25 minutes Cady Espinosa MD Work Phone: [facility] Comment on above: Uncontrolled hyperte nsion; Unequal blood pressure in upper extremities; Mixed hyperlipidemia; Former smoker; Bilateral carotid artery stenosis; History of prostate cancer; Hx of bladder cancer; Medication course changed; Chest pressure; Shortness of breath; BMI 26.0-26.9,adult Start: 07-17-2024 End: 07-17-2024 ambulatory [facility] Start: 07-12-2024 End: 07-12-2024 ambulatory Lionel WHITNEY Facility:[facility] Start: 07-12-2024 End: 07-12-2024 Patient encounter procedure Lionel WHITNEY [facility] Start: 07-06-2024 End: 07-06-2024 ambulatory Deandre Monterroso MD Work Phone: [facility] Work Phone: Start: 07-06-2024 End: 07-06-2024 Departed Referred Deandre Monterroso MD Work Phone: [facility] Start: 07-06-2024 End: 07-06-2024 ambulatory Lionel WHITNEY Facility:CD:[id number] Start: 07-03-2024 End: 07-03-2024 ambulatory Tamiko Landa MD Facility: [facility] Start: 06-09-2024 End: 06-09-2024 Subsequent hospital visit by physician Tania [place] Echo/Vasc Room 2 [facility] Comment on above: Left carotid bruit; Unequal blood pressure in upper extremities Former smoker; Shortness of breath Start: 06-09-2024 End: 06-09-2024 ambulatory [facility] Start: 06-05-2024 End: 06-05-2024 ambulatory Tamiko Landa MD Facility:[facility] Start: 05-29-2024 End: 05-29-2024 ambulatory Tamiko Landa MD Facility:[facility] Start: 05-22-2024 End: 05-22-2024 Lab Drop off Lionel WHITNEY [facility] Start: 05-22-2024 End: 05-22-2024 ambulatory Lionel WHITNEY Facility:[facility] Start: 05-22-2024 End: 05-22-2024 Patient encounter procedure Lionel WHITNEY [facility] Start: 05-09-2024 End: 05-09-2024 ambulatory Lionel WHITNEY Facility:[facility] Start: 05-09-2024 End: 05-09-2024 Patient encounter procedure Lionel WHITNEY [facility] Start: 05-08-2024 End: 05-08-2024 Office consultation new/estab patient 60 min Cady Espinosa MD Work Phone: [facility] Comment on above: Unequal blood pressu re in upper extremities; Uncontrolled hypertension; Shortness of breath; Mixed hyperlipidemia; History of prostate cancer; Hx of bladder cancer; History of fractured rib; Former smoker; BMI 25.0-25.9,adult; Medication course changed Start: 05-08-2024 End: 05-08-2024 ambulatory [facility] Start: 04-10-2024 End: 04-10-2024 ambulatory Tamiko Landa MD Facility:[facility] Start: 03-28-2024 End: 03-28-2024 ambulatory [facility] Work Phone: Start: 03-28-2024 End: 03-28-2024 Patient encounter procedure [facility] Neurosurgery Work Phone: Start: 03-27-2024 End: 03-27-2024 ambulatory Tamiko Landa MD Facility:[facility] Start: 10-26-2023 End: 10-26-2023 ambulatory Lionel WHITNEY Facility:[facility] Start: 10-26-2023 End: 10-26-2023 Patient encounter procedure Lionel WHITNEY [facility] Start: 10-11-2023 End: 10-11-2023 ambulatory MD Deandre Monterroso Work Phone: [facility] Work Phone: Start: 10-11-2023 End: 10-11-2023 Patient encounter procedure MD Deandre Monterroso Work Phone: [facility] Infectious Disease Work Phone: Start: 10-04-2023 End: 10-04-2023 ambulatory Lionel WHITNEY Facility:[facility] Start: 10-04-2023 End: 10-04-2023 Patient encounter procedure Lionel WHITNEY [facility] Start: 09-30-2023 End: 09-30-2023 ambulatory KELLY ORTIZ Not Available Start: 09-09-2023 End: 09-09-2023 ambulatory VASU GALEANO Not Available Start: 08-28-2023 End: 08-28-2023 Patient encounter procedure MD Deandre Monterroso Work Phone: [facility] [place] Work Phone: Start: 08-28-2023 End: 08-28-2023 ambulatory Deandre Monterroso Facility:[facility] Start: 08-12-2023 End: 08-12-2023 Patient encounter procedure MD Deandre Monterroso Work Phone: [facility]XRay [facility] [place] Work Phone: Start: 08-12-2023 End: 08-12-2023 ambulatory MD Deandre Monterroso Work Phone: [facility] Work Phone: Start: 08-12-2023 End: 08-12-2023 ambulatory MD Deandre Monterroso Work Phone: [facility] Work Phone: Start: 08-12-2023 End: 08-12-2023 Patient encounter procedure MD Deandre Monterroso Work Phone: [facility] Neurosurgery Work Phone: Start: 07-26-2023 End: 07-26-2023 ambulatory Tamiko Landa MD Facility:[facility] Start: 04-27-2023 End: 04-27-2023 Patient encounter procedure Lionel WHITNEY [facility] Start: 02-10-2023 End: 02-10-2023 Patient encounter procedure Qamar SMITH General Surgery [facility] Start: 01-05-2023 End: 01-05-2023 Patient encounter procedure Lionel WHITNEY [facility] Start: 01-01-2023 End: 01-01-2023 ambulatory MD Deandre Monterroso Work Phone: [facility] Work Phone: Start: 01-01-2023 End: 01-01-2023 Patient encounter procedure MD Deandre Monterroso Work Phone: [facility] [place] Work Phone: Start: 12-03-2022 End: 12-03-2022 ambulatory Zoran Chavez Other [facility] Other Start: 12-03-2022 Office outpatient vi sit 15 minutes Zoran Chavez [facility] Neurosurgery Start: 11-20-2022 ambulatory ANDRIUS GIEDRAITIS Faci lity:[facility] Start: 10-28-2022 End: 10-29-[address] NELLY HERRERA Facility:[facility] Start: 10-27-2022 End: 11-18-[address] ZORAN CHAVEZ Facility:[facility] Start: 10-23-2022 End: 10-24-[address] ZORAN CHAVEZ Facility:[facility] Start: 10-22-2022 End: 10-22-2022 ambulatory Zoran Chavez Other [facility] Other Start: 10-22-2022 Office outpatient vi sit 15 minutes Zoran Chavez [facility] Neurosurgery Start: 10-05-2022 End: 10-06-[address] DEANDRE MONTERROSO . Facility:[facility] Start: 09-24-2022 End: 09-25-[address] DEANDRE MONTERROSO . Facility:[facility] Start: 09-21-2022 End: 09-22-[address] LIONEL WHITNEY . Facility:[facility] Start: 09-21-2022 End: 09-21-2022 Patient encounter procedure Lionel WHITNEY [facility] Start: 08-19-2022 End: 08-20-[address] LIONEL WHITNEY . Facility:[facility] Start: 08-17-2022 End: 08-17-2022 Patient encounter procedure Lionel WHITNEY [facility] Start: 08-04-2022 End: 08-05-[address] DEANDRE MONTERROSO . Facility:[facility] Start: 07-28-2022 End: 07-29-[address] DEANDRE MONTERROSO . Facility:[facility] Start: 07-23-2022 End: 07-23-[address] LIONEL WHITNEY . Facility:[facility] Start: 07-20-2022 End: 07-20-2022 Patient encounter procedure Lionel WHITNEY [facility] Start: 07-07-2022 End: 07-07-2022 Patient encounter procedure Lionel WHITNEY [facility] Start: 06-30-2022 End: 07-01-[address] DEANDRE MONTERROSO . Facility:[facility] Start: 06-04-2022 End: 06-04-[address] DEANDRE MONTERROSO . Facility:[facility] Start: 05-25-2022 End: 05-26-[address] DEANDRE MONTERROSO . Facility:[facility] Start: 05-18-2022 End: 05-18-2022 Patient encounter procedure Lionel WHITNEY [facility] Start: 04-27-2022 End: 04-28-[address] DEANDRE MONTERROSO . Facility:[facility] Start: 04-18-2022 End: 04-18-[address] FELICIA GALDAMEZ . Facility:[facility] Start: 04-15-2022 End: 04-15-2022 Patient encounter procedure Lionel WHITNEY [facility] Start: 03-26-2022 End: 03-26-[address] LIONEL WHITNEY . Facility:[facility] Start: 03-12-2022 End: 03-13-[address] DEANDRE MONTERROSO . Facility: Start: 03-09-2022 End: 03-09-2022 Patient encounter procedure Lionel WHITNEY [facility] Start: 02-27-2022 End: 02-27-2022 Lab Drop off Lionel WHITNEY [facility] Start: 02-27-2022 End: 02-27-2022 Patient encounter procedure Lionel WHITNEY [facility] Start: 02-24-2022 End: 02-24-2022 Patient encounter procedure Lionel WHITNEY [facility] Start: 02-17-2022 End: 02-17-2022 Admission to same day surgery center MD Deandre Monterroso Work Phone: [facility]Surgery [facility] Start: 02-13-2022 End: 02-13-2022 Patient encounter procedure MD Deandre Monterroso Work Phone: [facility]-Pre-Surgical Testing Start: 02-06-2022 End: 02-06-2022 Patient encounter procedure MD Deandre Monterroso Work Phone: [facility]Pre-Surgical Testing Start: 11-11-2021 End: 11-11-2021 Patient encounter procedure Lionel WHITNEY [facility] Start: 11-05-2021 End: 11-05-2021 Patient encounter procedure Lionel WHITNEY [facility] Start: 10-29-2021 End: 10-29-2021 Admission to same day surgery center MD Deandre Monterroso Work Phone: [facility]Surgery [facility] [place] Start: 10-27-2021 End: 10-27-2021 Patient encounter procedure MD Deandre Monterroso Work Phone: [facility]Pre-Surgical Testing Start: 10-17-2021 End: 10-17-2021 Patient encounter procedure MD Deandre Monterroso Work Phone: [facility]Pre-Surgical Testing Procedures Date Procedure Procedure Detail Performing Clinician Start: 08-02-2024 Urnls dip stick/tabl et rgnt auto w/o microscopy [facility] Provider Start: 07-06-2024 Transurethral resect ion of bladder neoplasm Lionel WHITNEY Start: 06-09-2024 Duplex scan extracra nial art compl bi study Cady Espinosa MD Work Phone: Start: 06-09-2024 Echo tthrc r-t 2d w/ wom-mode compl spec&colr d Cady Espinosa MD Work Phone: Start: 05-08-2024 Ecg routine ecg w/le ast 12 lds w/i&r Cady Espinosa MD Work Phone: Start: 08-28-2023 MRI of cervical spin e with contrast MD Deandre Monterroso Work Phone: Start: 08-12-2023 X-ray of lumbar spin e, six views including bending views MD Deandre Monterroso Work Phone: Start: 08-12-2023 X-ray of cervical spine MD Deandre Monterroso Work Phone: Start: 04-27-2023 Transurethral cystoscopy Lionel WHITNEY Start: 01-14-2023 Transurethral resect ion of bladder neoplasm Lionel WHITNEY Start: 01-01-2023 MR lumbar spine wo con MD Deandre Monterroso Work Phone: Start: 09-21-[address] NELLY HERRERA Comment on above: Performed By: #### P SAD #### [facility] [address] [place] [address] Dr. Johnna Dixon Start: 02-17-2022 Transurethral resect ion of bladder neoplasm MD Deandre Monterroso Work Phone: Start: 02-17-2022 Transurethral resect ion of bladder neoplasm Lionel WHITNEY Start: 10-29-2021 Transurethral resect ion of bladder neoplasm MD Deandre Monterroso Work Phone: Start: 10-29-2021 Diagnostic radiograp hy of abdomen MD Deandre Monterroso Work Phone: Start: 10-29-2021 Transurethral resect [...] WHITNEY Comment on above: had recently at [facility] Start: 05-21-2014 Colonoscopy Qamar DOSS [...] (3 - Td or Tdap) [facility] Start: 09-26-2028 Urine microalbumin profile DTaP,Tdap,Td Vaccine (3 - Td or Tdap) [facility] Start: 07-26-2027 Diabetes Screening Diabetes Screening [facility] Start: 2026 RSV Vaccine (1 - 1-dose 75+ series) RSV Vaccine (1 - 1-dose 75+ series) [facility] Start: 01-01-2025 End: 01-01-2025 Patient encounter procedure 01/01/2025 10:45 AM EDT Office Visit [facility] [address] [facility] [address] [place] [address] Cady Espinosa MD [address] [facility] [address] [place] [address] [facility] Start: 10-09-2024 ambulatory Ambulatory Facility:[facility] Start: 09-13-2024 End: 09-13-2024 Nursing evaluation of patient and report 09/13/2024 2:00 PM EDT Nurse Visit Hematology/Oncology [address] [place] [address] Bruno Trevino Nurse Enrique [address] [place] [address] UA to rule og UTI Hematology/Oncology Comment on above: UA to rule og UTI Start: 09-13-2024 End: 09-13-2024 ambulatory 09/13/2024 1:00 PM EDT Infusion Center Hematology/Oncology [address] [place] [address] [facility]On[facility] Comment on above: [facility] Start: 09-06-2024 End: 09-06-2024 Nursing evaluation of patient and report 09/06/2024 2:00 PM EDT Nurse Visit Hematology/Oncology [address] [place] [address] Bruno Trevino Nurse Enrique [address] [place] [address] UA to rule og UTI Hematology/Oncology Comment on above: UA to rule og UTI Start: 09-06-2024 End: 09-06-2024 ambulatory 09/06/2024 1:00 PM EDT Infusion Center Hematology/Oncology [address] [place] [address] New start Intravesical [facility]emat[facility]/Oncology Comment on above: New start Intravesical [facility] Start: 08-31-2024 End: 08-31-2024 Patient encounter procedure [facility] Start: 08-31-2024 End: 08-31-2024 Patient encounter procedure [facility] Start: 08-30-2024 End: 08-30-2024 Nursing evaluation of patient and report 08/30/2024 2:30 PM EDT Nurse Visit Hematology/Oncology [address] [place] [address] Bruno Trevino Nurse Enrique [address] [place] [address] UA to rule og UTI Hematology/Oncology Comment on above: UA to rule og UTI Start: 08-30-2024 End: 08-30-2024 ambulatory Hematology/Oncology Comment on above: New start Intravesical [facility] Start: 08-23-2024 End: 08-23-2024 Nursing evaluation of patient and report 08/23/2024 2:00 PM EST Nurse Visit Hematology/Oncology [address] [place] [address] Bruno Trevino Nurse Enrique [address] [place] [address] UA to rule og UTI Hematology/Oncology Comment on above: UA to rule og UTI Start: 08-23-2024 End: 08-23-2024 ambulatory Hematology/Oncology Comment on above: New start Intravesical [facility] Start: 08-16-2024 End: 08-16-2024 Nursing evaluation of patient and report 08/16/2024 2:15 PM EST Nurse Visit Hematology/Oncology [address] [place] [address] Bruno Trevino Nurse Enrique [address] [place] [address] UA to rule og UTI Hematology/Oncology Comment on above: UA to rule og UTI Start: 08-16-2024 End: 11-15-2024 CBC W Auto Differential panel - Blood COMPLETE BLOOD COUNT AND DIFFERENTIAL Lab Routine Malignant neoplasm of urinary bladder, unspecified site (HCC) Expected: 08/16/2024 (Approximate), Expires: 11/15/2024 [facility] Work Phone: Comment on above: Expected: 08/16/2024 (Approximate), Expi res: 11/15/2024 Start: 08-16-2024 End: 11-15-2024 Comprehensive metabolic 2000 panel - Serum or Plasma COMPREHENSIVE METABOLIC PANEL Lab Routine Malignant neoplasm of urinary bladder, unspecified site (HCC) Expected: 08/16/2024 (Approximate), Expires: 11/15/2024 [facility] Comment on above: Expected: 08/16/2024 (Approximate), Expi res: 11/15/2024 Start: 08-16-2024 End: 11-15-2024 Prostate specific Ag [Mass/volume] in Serum or Plasma PROSTATE-SPECIFIC ANTIGEN DIAGNOSTIC Lab Routine Malignant neoplasm of urinary bladder, unspecified site (HCC) Expected: 08/16/2024 (Approximate), Expires: 11/15/2024 [facility] Comment on above: Expected: 08/16/2024 (Approximate), Expi res: 11/15/2024 Start: 08-16-2024 End: 08-16-2024 ambulatory Hematology/Oncology Comment on above: New start Intravesical BCG [facility] Start: 08-16-2024 End: 08-16-2024 Follow-up encounter 08/16/2024 1:00 PM EST Visit (SP) Office Hematology/Oncology [address] [place] [address] Norberto Andrade MD [address] [place] [address] 2 week lab follow up Hematology/Oncology Comment on above: 2 week lab follow up Start: 08-16-2024 End: 08-16-2024 Patient encounter procedure 08/16/2024 12:45 PM EST Office Visit [facility] [address] [place] [address] 2 week lab follow up [facility] Comment on above: 2 week lab follow up Start: 08-09-2024 End: 08-09-2024 Nursing evaluation of patient and report 08/09/2024 2:00 PM EST Nurse Visit Hematology/Oncology [address] [place] [address] [place] [address] Bruno Trevino Nurse Enrique [address] [place] [address] UA to rule og UTI Hematology/Oncology Comment on above: UA to rule og UTI Start: 08-09-2024 End: 08-09-2024 ambulatory Hematology/Oncology Comment on above: New start Intravesical BCG [facility] Start: 08-08-2024 End: 05-08-2025 Alanine aminotransferase [Enzymatic activity/volume] in Serum or Plasma by With P-5'-P Alanine Aminotransferase Lab Routine Mixed hyperlipidemia Expected: 08/08/2024, Expires: 05/08/2025 [facility] Work Phone: Comment on above: Expected: 08/08/2024, Expires: Start: 08-08-2024 End: 05-08-2025 Aspartate aminotransferase [Enzymatic activity/volume] in Serum or Plasma by With P-5'-P Aspartate Aminotransferase Lab Routine Mixed hyperlipidemia Expected: 08/08/2024, Expires: 05/08/2025 [facility] Work Phone: Comment on above: Expected: 08/08/2024, Expires: Start: 08-08-2024 End: 05-08-2025 Lipid 1996 panel - Serum or Plasma Lipid Panel Lab Routine Mixed hyperlipidemia Expected: 08/08/2024, Expires: 05/08/2025 [facility] Work Phone: Comment on above: Expected: 08/08/2024, Expires: Start: 08-02-2024 End: 08-02-2024 Nursing evaluation of patient and report 08/02/2024 9:00 AM EST Nurse Visit Hematology/Oncology [address] [place] [address] Bruno Trevino Nurse Enrique [address] [place] [address] UA to rule og UTI Hematology/Oncology Comment on above: UA to rule og UTI Start: 08-02-2024 End: 08-02-2024 ambulatory 08/02/2024 8:30 AM EST Infusion Center Hematology/Oncology [address] [facility] [place] [address] New start Intravesical [facility] Hematology/Oncology Comment on above: New start Intravesical [facility] Start: 08-02-2024 End: 08-02-2024 Follow-up encounter 08/02/2024 8:30 AM EST Visit (SP) Office Hematology/Oncology [address] [facility] [place] [address] Norberto Andrade MD [address] [place] [address] [place] [address] Follow up Hematology/Oncology Comment on above: Follow up Start: 08-02-2024 End: 08-02-2024 Patient encounter procedure 08/02/2024 8:15 AM EST Office Visit [facility] [address] [place] [address] [place] [address] [facility] Comment on above: lab Start: 07-26-2024 End: 07-26-2024 Nursing evaluation of patient and report 07/26/2024 11:00 AM EST Nurse Visit Hematology/Oncology [address] [place] [address] [place] [address] Ingrid Ugalde, RN [address] [place] [address] [place] [address] Chemo Education Hematology/Oncology Comment on above: Chemo Education Start: 07-19-2024 End: 10-18-2024 CBC W Auto Differential panel - Blood COMPLETE BLOOD COUNT AND DIFFERENTIAL Lab Routine Malignant neoplasm of urinary bladder, unspecified site (HCC) Expected: 07/19/2024, Expires: 10/18/2024 [facility] Work Phone: Comment on above: Expected: 07/19/2024, Expires: Start: 07-19-2024 End: 10-18-2024 Comprehensive metabolic 2000 panel - Serum or Plasma COMPREHENSIVE METABOLIC PANEL Lab Routine Malignant neoplasm of urinary bladder, unspecified site (HCC) Expected: 07/19/2024, Expires: 10/18/2024 [facility] Comment on above: Expected: 07/19/2024, Expires: Start: 07-19-2024 End: 07-19-2024 ambulatory 07/19/2024 11:00 AM EST Visit (SP) Office Hematology/Oncology [address] [place] [address] [place] [address] Norberto Andrade MD [address] [facility] [place] [address] Lionel Whitney. Dx: Bladder CA. will need #6 BCG treatments after Jul 27. Hematology/Oncology Comment on above: Referred by Dr. Lionel Whitney. Dx: Blad yamileth CA. will need #6 BCG treatments after Jul 27. Start: 07-17-2024 End: 07-17-2025 Comprehensive metabolic 2000 panel - Serum or Plasma Comprehensive Metabolic Panel Lab Routine Medication course changed Chest pressure Shortness of breath Expected: 07/17/2024 (Approximate), Expires: 07/17/2025 [facility] Work Phone: Comment on above: Expected: 07/17/2024 (Approximate), Expi res: 07/17/2025 Start: 07-17-2024 End: 07-17-2025 Lipid 1996 panel - Serum or Plasma Lipid Panel Lab Routine Uncontrolled hypertension Mixed hyperlipidemia Medication course changed Expected: 07/17/2024 (Approximate), Expires: 07/17/2025 [facility] Work Phone: Comment on above: Expected: 07/17/2024 (Approximate), Expi res: 07/17/2025 Start: 07-17-2024 End: 07-17-2025 NM Heart Perfusion W stress and W radionuclide IV Nuclear Stress Test Cardiac Nuclear Medicine Routine Chest pressure Shortness of breath Expected: 07/17/2024 (Approximate), Expires: 07/17/2025 [facility] Work Phone: Comment on above: Expected: 07/17/2024 (Approximate), Expi res: 07/17/2025 Start: 07-17-2024 End: 07-17-2026 US.doppler Carotid arteries - bilateral Vascular US Carotid Artery Duplex Bilateral Vascular Ultrasound Routine Bilateral carotid artery stenosis Chest pressure Shortness of breath Expected: 07/17/2024 (Approximate), Expires: 07/17/2026 [facility] Service Area Work Phone: Comment on above: Expected: 07/17/2024 (Approximate), Expi res: 07/17/2026 Start: 07-17-2024 End: 07-17-2024 Patient encounter procedure 07/17/2024 10:45 AM EST Office Visit [address] [place] [address] Cady Espinosa MD [address] [facility] [address] [place] [address] [facility] Start: 06-21-2024 Advance Directive Discussion Advance Directive Discussion [facility] Start: 06-08-2024 End: 06-08-2024 Patient encounter procedure 06/08/2024 10:45 AM EST Appointment [id number] [place] [id number] [facility] Start: 05-15-2024 End: 05-08-2025 Basic metabolic 2000 panel - Serum or Plasma Basic Metabolic Panel Lab Routine Uncontrolled hypertension Expected: 05/15/2024 (Approximate), Expires: 05/08/2025 [facility] Work Phone: Comment on above: Expected: 05/15/2024 (Approximate), Expi res: 05/08/2025 Start: 05-08-2024 End: 05-08-2026 US Heart Transthoracic Transthoracic Echo Complete Echocardiography Routine Former smoker Shortness of breath Expected: 05/08/2024 (Approximate), Expires: 05/08/2026 [facility] Service Area Work Phone: Comment on above: Expected: 05/08/2024 (Approximate), Expi res: 05/08/2026 Start: 02-20-2024 Covid-19 Vaccine ( season) Covid-19 Vaccine ( season) [facility] Start: 02-20-2024 COVID-19 Vaccine ( season) COVID-19 Vaccine () [facility] Start: 02-20-2024 Influenza vaccination Influenza Vaccine (#1) [facility] Start: 08-12-2023 Patient referral [facility] Work Phone: Start: 08-12-2023 X-ray of cervical spine XR cervical spine w flex/ext [facility] Start: 08-12-2023 X-ray of lumbar spine, six views including bending views XR lumbar spine 6V w bending [facility] Start: 08-12-2023 XR Cervical spine Views W flexion and W extension [facility] Start: 08-12-2023 XR Lumbar spine Views [facility] Start: 02-17-2022 End: 02-17-2022 [facility] Work Phone: Start: 02-17-2022 Transurethral resection of bladder neoplasm OR Cysto/TURBT/Bladder Biopsy/Fulg (Not Applicable) [facility] Start: 02-17-2022 End: 02-17-2022 Admission to same day surgery center [facility] [place] Start: 02-13-2022 End: 02-13-2022 Patient encounter procedure Departed Clinical [facility]em-Nqj-Xgahwjmc Testing Start: 02-03-2016 Abdominal aortic aneurysm screening Abdominal Aortic Aneurysm (AAA) Screening [facility] Start: 2011 RSV High Risk: (Elderly (60+) or Population) (1 - Risk 60-74 years 1-dose series) RSV High Risk: (Elderly (60+) or Population) (1 - Risk 60-74 years 1-dose series) [facility] Start: 2011 RSV Vaccine (1 - Risk 60-74 years 1-dose series) RSV Vaccine (1 - Risk 60-74 years 1-dose series) [facility] Start: 02-03-1996 Diabetes Screening Diabetes Screening [facility] Start: 02-03-1996 Screening for malignant neoplasm of colon [facility] Start: 1986 Lipid panel Lipid Screening [facility] Start: 1969 Anxiety Screening Anxiety Screening [facility] Start: 1969 Depression Screening Depression Screening [facility] Start: 1969 Diabetes mellitus screening Diabetes Screening [facility] Start: 1969 Hepatitis C screening Hepatitis C Screening [facility] Start: 1951 Abdominal aortic aneurysm screening Abdominal Aortic Aneurysm Screening [facility] Start: 1951 Lipid panel Lipid Panel [facility] Start: 1951 Medicare Annual Wellness Visit Medicare Annual Wellness Visit (AWV) [facility] Start: 1950 Screening for malignant neoplasm of colon [facility] Start: 1951 Thyroid stimulating hormone measurement TSH Level [facility] Microbial culture of sputum [facility] MR Cervical spine WO and W contrast IV [facility] Patient referral [facility] Work Phone: UA DIP, URINE (POC) UA DIP, URIN E (POC) Lab Routine Malignant neoplasm of urinary bladder, unspecified site (HCC) Ordered: 08/02/2024 [facility] Work Phone: Comment on above: Ordered: 08/02/2024 Immunizations Immunization Date Immunization Notes Care Provider Gary francisco 07-13-2023 zoster vaccine recombinant Lionel WHITNEY [facility] 03-23-2023 influenza virus vacc ine, unspecified formulation Lionel WHITNEY [facility] 03-23-2023 zoster vaccine recombinant Lionel WHITNEY [facility] 04-16-2022 SARS-CoV-2 (COVID-19 ) [id number] Qamar SMITH [facility] 03-27-2022 influenza virus vacc ine, unspecified formulation Qamar SMITH [facility] 05-06-2021 COVID-19 mRNA-1273 (Moderna) MD Deandre Monterroso Work Phone: [facility] 09-19-2020 COVID-19 mRNA-1273 (Moderna) MD Deandre Monterroso Work Phone: [facility] Comment on above: Result Comment: 2022: [id number] 08-22-2020 COVID-19 mRNA-1273 (Moderna) MD Deandre Monterroso Work Phone: [facility] Comment on above: Result Comment: 2022: [id number] 06-21-2020 SARS-CoV-2 (COVID-19 ) mRNA-1273 vaccine Lionel WHITNEY [facility] 05-23-2020 influenza virus vacc ine, unspecified formulation Qamar SMITH [facility] 04-03-2020 influenza virus vacc ine, unspecified formulation Qamar SMITH [facility] 05-29-2019 influenza virus vacc ine, unspecified formulation Qamar SMITH [facility] 04-14-2019 influenza, unspecifi ed formulation Qamar [employer] [facility] 09-26-2018 tetanus and diphther ia toxoids, adsorbed, preservative free, for adult use (2 Lf of tetanus toxoid and 2 Lf of diphtheria toxoid) [employer] [facility] 10-11-2017 pneumococcal polysaccharide vaccine, 23 valent Qamar [employer] [facility] 07-22-2016 pneumococcal conjuga te vaccine, 13 valent [employer] [facility] 06-29-2013 tetanus toxoid, redu mirtha diphtheria toxoid, and acellular pertussis vaccine, adsorbed [employer] [facility] 03-10-2000 Td(adult) unspecifie d formulation [employer] [facility] Payers Date Payer Category Payer Self-pay [id number] 2020 Medicare (Managed Care) 1.2. [id number] 2020 Unknown 1959 Medicare [id number] 1959 Unknown [id number] 2.16.840.1.553609.19 1951 Unknown [id number] 2.16.840.1.504229.3.579.2. 593 1951 Unknown [id number] 2.16.840.1.944096.3.579.2. 593 1951 Unknown [id number] 2.16.840.1.859052.3.579.2. 593 1951 Unknown [id number] 2.16.840.1.279299.3.579.2. 593 1951 Unknown [id number] 2.16.840.1.352359.3.579.2. 593 1951 Unknown [id number] 2.16.840.1.987314.3.579.2. 593 1951 Unknown [id number] 2.16.840.1.840000.3.579.2. 593 1951 Unknown [id number] 2.16.840.1.960209.3.579.2. 593 1951 Unknown [id number] 2.16.840.1.874045.3.579.2. 59 1951 Unknown [id number] 2.16.840.1.013627.3.579.2. 593 1951 Unknown [id number] 2.16.840.1.986291.3.579.2. 593 1951 Unknown [id number] 2.16.840.1.604196.3.579.2. 593 1951 Unknown [id number] 2.16840.1.789200.3.579.2. 593 1951 Unknown [id number] 2.16.840.1.405496.3.579.2. 593 1951 Unknown [id number] 2.16.840.1.542694.3.579.2. 593 1951 Unknown [id number] 2.16.840.1.302015.3.579.2. 593 1951 Unknown [id number] 2.16.840.1.710923.3.579.2. 593 1951 Unknown [id number] 2.16.840.1.100087.3.579.2. 593 1951 Unknown [id number] 2.16.840.1.609956.3.579.2. 593 1951 Unknown [id number] 2.16.840.1.881689.3.579.2. 1259 1951 Unknown [id number] 2.16.840.1.303180.3.579.2. 1259 1951 Unknown [id number] 2.16.840.1.932994.3.579.2. 727 1951 Unknown [id number] 2.16.840.1.411225.3.579.2. 727 1951 Unknown [id number] 2.16.840.1.813101.3.579.2. 1246 1951 Unknown [id number] 2.16.840.1.371303.3.579.2. 1246 1951 Unknown [id number] 2.16.840.1.336767.3.579.2. 196 1951 Unknown [id number] 2.16.840.1.822442.3.579.2. 196 1951 Unknown [id number] 2.16.840.1.286259.3.579.2. 196 1951 Unknown [id number] 2.16.840.1.677837.3.579.2. 196 1951 Unknown [id number] 2.16.840.1.487897.3.579.2. 196 1951 Unknown [id number] 2.16.840.1.745874.3.579.2. 196 1951 Unknown [id number] 2.16.840.1.738954.3.579.2. 727 1951 Unknown [id number] 2.16.840.1.348509.3.579.2. 727 1951 Unknown [id number] 2.16.840.1.610287.3.579.2. 727 1951 Unknown [id number] 2.16.840.1.840225.3.579.2. 727 1951 Unknown [id number] 2.16.840.1.820148.3.579.2. 727 1951 Unknown [id number] 2.16.840.1.333265.3.579.2. 727 1951 Unknown [id number] 2.16.840.1.336003.3.579.2. 1244 1951 Unknown [id number] 2.16.840.1.044351.3.579.2. 1244 Medicare Medicare [id number] Private Health Insurance [id number] [facility] [place] [id number] Unknown [id number] 2.16.840.1.040397.3.579.2. 531 Unknown [id number] 2.16840.1.244406.3.579.2. 531 Unknown [id number] 2.16840.1.722408.3.579.2. 531 Social History Date Type Detail Facility Start: 10-17-2021 End: 07-18-2024 Tobacco smoking status NHIS Ex-smoker (finding) [facility] Comment on above: pt quit smoking 10+ yrs ago Start: 1950 Sex Assigned At Male [facility] Start: 11-05-2021 Tobacco smoking status Never s moked tobacco (finding) [facility] Tobacco smoking status Never [facility] Comment on above: pt quit smoking 10+ yrs ago Start: 05-08-2024 End: 08-02-2024 Sex Assigned At Male [facility] End: 06-21-2003 History of tobacco use Current smoker [facility] Work Phone: End: 06-21-2003 History of tobacco use Cigarette Smoker [facility] Work Phone: Start: 05-08-2024 End: 07-18-2024 Tobacco use and exposure Smokeless tobacco non-user [facility] Work Phone: Start: 05-08-2024 End: 08-02-2024 Alcoholic beverage intake Current drinker of alcohol (finding) [facility] Work Phone: Start: 05-08-2024 End: 08-02-2024 History of Social function [facility] Work Phone: Start: 05-08-2024 Alcohol Comment [facility] Start: 1950 Sex assigned at Not on file [facility] Work Phone: Start: 04-28-2024 End: 07-17-2024 Exposure to SARS-CoV-2 (event) Not sure [facility] Start: 07-08-2024 Sex Male (finding) [facility] Medical Equipment Procedure Code Equipment Code Equipment Original Text Equipment Identifier Dates Transurethral resection of bladder tumor (TURBT) with cystoscopy Polymeric ureteral stent ()[id number] FDA Start: 10-29-2021 Decompression, spine, cervical, posterior approach Bone-screw internal spinal fixation system, non-sterile ()[id number] FDA Start: 04-18-2020 Decompression, spine, cervical, posterior approach Bone-screw internal spinal fixation system, non-sterile ()[id number] FDA Start: 04-18-2020 Decompression, spine, cervical, posterior approach Bone-screw internal spinal fixation system, non-sterile ()[id number] FDA Start: 04-18-2020 Decompression, spine, cervical, posterior approach Bone-screw internal spinal fixation system, non-sterile ()[id number] FDA Start: 04-18-2020 Decompression, spine, cervical, posterior approach Bone-screw internal spinal fixation system, non-sterile ()[id number] FDA Start: 04-18-2020 Goals Date Patient Goal Desired Activity /State Functional Status Date Assessment Result Facility 07-12-2024 Functional Status N/A [facility] 05-09-2024 Functional Status N/A [facility] 10-26-2023 Functional Status N/A [facility] 10-04-2023 Functional Status N/A [facility] 04-27-2023 Functional Status N/A [facility] 02-10-2023 Functional Status N/A [facility] 01-05-2023 Functional Status N/A [facility] 02-24-2022 Functional Status N/A [facility] Clinical Notes 11-04-2021 to 08-02-2024 Keron Kelly, NATHALIE - 08/02/2024 12:46 PM ESTPatient Santosh Cosby MA - 08/02/2024 8:49 AM Norberto De Los Santos MD - 08/02/2024 8:30 AM Ingrid Gordon RN - 07/26/2024 12:19 PM EST Note Date & Type Note Facility 08-02-2024 Note HNO ID: [id number] Author: KERON KELLY RN Service: ? Author Type: Registered Nurse Type: Progress Notes Filed: 08/02/2024 13:03 Note Text: 0920: 16FR mills catheter inserted using lidocaine and sterile procedure, pt tolerated well. 40 ml clear, yellow urine collected. 0959: BCG instilled and catheter clamped without complications. Pt denies any needs at this time. Pt/spouse aware to turn every 15 minutes, spouse managing timer. 1040: Pt turning as instructed, denies symptoms or any needs at this time. 1125: Pt continues to turn as instructed. Denies any complications or needs. 1156: Mills catheter unclamped. 1200: Approximately 300 ml clear, yellow urine noted in urine bag. Pt denies needs. 10 ml balloon deflated and appears intact, mills discontinued. Pt/spouse escorted to [facility]SS for follow up appointments. Keron Kelly RN [facility] 08-02-2024 History of Present illness Narrative 0920: 16FR mills catheter inserted using lidocaine and sterile procedure, pt tolerated well. 40 ml clear, yellow urine collected. 0959: BCG instilled and catheter clamped without complications. Pt denies any needs at this time. Pt/spouse aware to turn every 15 minutes, spouse managing timer. 1040: Pt turning as instructed, denies symptoms or any needs at this time. 1125: Pt continues to turn as instructed. Denies any complications or needs. 1156: Mills catheter unclamped. 1200: Approximately 300 ml clear, yellow urine noted in urine bag. Pt denies needs. 10 ml balloon deflated and appears intact, mills discontinued. Pt/spouse escorted to PSS for follow up appointments. Keron Kelly RN documented in this encounter [facility] 08-02-2024 Instructions Norberto Andrade MD - 08/02/2024 9:05 AM EST BCG treatment today and every week F/u in 2 weeks documented in this encounter [facility] 08-02-2024 Note HNO ID: [id number] Author: SANTOSH DEL RIO MA Service: ? Author Type: Juice Scaleman Type: Progress Notes Filed: 08/02/2024 08:51 Note Text: UA performed as ordered. Santosh Del Rio MA [facility] 08-02-2024 History of Present illness Narrative UA performed as ordered. Santosh Del Rio MA documented in this encounter [facility] 08-02-2024 History of Present illness Narrative Images from the original note were not included. PATIENT NAME: Mary Diaz CLINIC NO.: [id number] ATTENDING PHYSICIAN: Norberto Andrade MD DATE OF SERVICE: 08/02/[address] Lionel Whitney [address] [facility] [address] thank you for referring Mary Diaz for an opinion regarding non muscle invasive bladder cancer. Some of the elements of this note have been copied from my previous progress note dated 07/19/24 . All the information has been reviewed carefully. CHIEF COMPLAINT: Bladder cancer HPI: Mary Diaz is a 74 year old year old male with h/o prostate cancer, skin cancer, HTN. Initially diagnosed with bladder cancer in October 2021. S/p TURBT with intravesical mitomycin. He was getting surveillance cystoscopy every 6 months. Cystoscopy on 07/06/24 - TURBT measuring approx 4cm. Final path showed a small focus of borderline high grade papillary urothelial carcinoma in atleast 1 fragment without obvious stromal invasion (gag writer). 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 Urology recommended induction BCG x 6 treatments. H/o prostate cancer s/p radical prostatectomy in 08/2014. No smoking Occasional alcohol Doing well No major complaints. 08/02/24: - Doing well - No major complaints - C/o left hip pain - Doing intraarticular steroid injection next week on Wednesday. Current Outpatient Medications Medication Sig methocarbamol 1,000 mg tablet Take 1,000 mg by mouth as needed (bedtime prn). mv-min/folic/K1/lycopen/lutein (MEN 50 PLUS MULTIVITAMIN ORAL) Take 1 tablet by mouth once daily. lisinopril (ZESTRIL) 20 mg tablet Take 20 mg by mouth once daily. lisinopril-hydroCHLOROthiazide (ZESTORETIC) 20-12.5 mg per tablet Take 1 tablet by mouth once daily. diclofenac, EC, (VOLTAREN) 75 mg EC tablet Take 75 mg by mouth two times a day. liothyronine (CYTOMEL) 25 mcg tablet Take 25 mcg by mouth once daily. Takes 1/[address] (PROTONIX) 40 mg tablet Take 40 mg by mouth once daily. sildenafil (VIAGRA) 100 mg tablet Take 100 mg by mouth as needed. ezyhcuetngt-mkeectakf-xyvcropz (TRELEGY ELLIPTA) 100-62.5-25 mcg inhalation powder Inhale 1 Puff as instructed once daily. No current facility-administered medications for this visit. ALLERGIES Allergen Reactions Codeine Rash Agitation, Doesn't work PAST MEDICAL HISTORY Diagnosis Date Anemia Arthritis Bladder cancer (HCC) GERD (gastroesophageal reflux disease) History of colonic polyps Hypertension Impotence Kidney stones Prostate cancer (HCC) Spondylosis PAST SURGICAL HISTORY Procedure Laterality Date APPENDECTOMY COLONOSCOPY 05/2014 CYSTOSCOPY 04/27/2023 OPEN REPAIR OF ROTATOR CUFF ACUTE PAST SURGICAL HISTORY OF Transurethral resection of bladder tumor x4 PAST SURGICAL HISTORY OF Cystourethroscopy with dilation of urethral stricture PAST SURGICAL HISTORY OF Repair of umbilical hernia PAST SURGICAL HISTORY OF Arthroscopy of shoulder PAST SURGICAL HISTORY OF Arthroscopy of knee PAST SURGICAL HISTORY OF Cervical Vertebral fusion RADICAL PROSTATECTOMY 08/2014 SHOULDER SURGERY HX Reconstruction FAMILY HISTORY Problem Relation Age of Onset other (Type 2 diabetes) Father Hypertension Father Social History Tobacco Use Smoking status: Former Types: Cigarettes Smokeless tobacco: Never Substance Use Topics Alcohol use: Yes Drug use: Never REVIEW OF SYSTEMS GENERAL: No weight loss, malaise or fevers. No night sweats. HEENT: Negative for headaches, No changes in hearing or vision, no nose bleeds or other nasal problems. RESPIRATORY: Negative for cough, wheezing and shortness of breath CARDIOVASCULAR: Negative for chest pain, leg swelling and palpitations GI: Negative for abdominal discomfort, blood in stools or black stools and change in bowel habits : Negative for dysuria, frequency and incontinence MUSCULOSKELETAL: Negative for joint pain or swelling, back pain, and muscle pain. SKIN: Negative for lesions, rash, and itching. HEMATOLOGY/LYMPHOLOGY Negative for prolonged bleeding, bruising easily, and swollen nodes. NEURO: Negative for numbness or tingling of hands/feet. No weakness. PHYSICAL EXAMINATION: There were no vitals taken for this visit. There were no vitals taken for this visit. No data found for this vital: Wt General appearance:ECOG PERFORMANCE STATUS: 0- Fully active, able to carry on all pre-disease performance w/o restriction. Patient in NAD. Skin: Skin color, texture, turgor normal. No rashes or lesions. Eyes: Anicteric sclera. Pupils are equally round and reactive to light. Extraocular movements are intact. Breast: No palpable breast masses. No nipple change or discharge. Lymph Nodes: No cervical, supraclavicular, axillary or inguinal adenopathy. Oropharynx: Lips, mucosa, and tongue normal. Back: No pain to percussion. Negative SLR test Lungs clear to auscultation, No wheezing or rhonchi Heart: RRR without murmur, gallop, or rubs. Abdomen soft, non-tender. No masses, organomegaly Extremities: No deformities. No edema Neuro: Gait and speech normal. Reflexes normal and symmetric. Muscular strength intact. Sensation grossly intact. Rectal: Deferred : Deferred LABS: Glucose (mg/dL) Date Value 07/26/2024 108 Potassium (mmol/L) Date Value 07/26/2024 4.5 Sodium (mmol/L) Date Value 07/26/2024 135 Chloride (mmol/L) Date Value 07/26/2024 101 CO2 (mmol/L) Date Value 07/26/2024 26 Creatinine (mg/dL) Date Value 07/26/2024 1.31 BUN (mg/dL) Date Value 07/26/2024 17 Anion Gap (mmol/L) Date Value 07/26/2024 8 Calcium, Total (mg/dL) Date Value 07/26/2024 9.5 Protein, Total (g/dL) Date Value 07/26/2024 6.2 Albumin (g/dL) Date Value 07/26/2024 4.2 Bilirubin, Total (mg/dL) Date Value 07/26/2024 0.5 Alkaline Phosphatase (U/L) Date Value 07/26/2024 55 AST (U/L) Date Value 07/26/2024 14 ALT (U/L) Date Value 07/26/2024 17 WBC Date Value Ref Range Status 07/26/2024 6.76 3.70 - 11.00 k/uL Final RBC Date Value Ref Range Status 07/26/2024 3.98 (L) 4.20 - 6.00 m/uL Final Hemoglobin Date Value Ref Range Status 07/26/2024 12.4 (L) 13.0 - 17.0 g/dL Final Hematocrit Date Value Ref Range Status 07/26/2024 36.5 (L) 39.0 - 51.0 % Final MCV Date Value Ref Range Status 07/26/2024 91.7 80.0 - 100.0 fL Final MCH Date Value Ref Range Status 07/26/2024 31.2 26.0 - 34.0 pg Final MCHC Date Value Ref Range Status 07/26/2024 34.0 30.5 - 36.0 g/dL Final RDW-CV Date Value Ref Range Status 07/26/2024 13.9 11.5 - 15.0 % Final Platelet Count Date Value Ref Range Status 07/26/2024 209 150 - 400 k/uL Final MPV Date Value Ref Range Status 07/26/2024 9.4 9.0 - 12.7 fL Final Abs Neut Date Value Ref Range Status 07/26/2024 4.54 1.45 - 7.50 k/uL Final Lymphocytes % Date Value Ref Range Status 07/26/2024 20.7 % Final Abs Lymph Date Value Ref Range Status 07/26/2024 1.40 1.00 - 4.00 k/uL Final Monocytes % Date Value Ref Range Status 07/26/2024 9.2 % Final Abs Claiborne Date Value Ref Range Status 07/26/2024 0.62 <0.87 k/uL Final Abs Eosin Date Value Ref Range Status 07/26/2024 0.13 <0.46 k/uL Final Basophils % Date Value Ref Range Status 07/26/2024 0.3 % Final Abs Baso Date Value Ref Range Status 07/26/2024 <0.03 <0.11 k/uL Final PATH: IMAGING: ASSESSMENT AND PLAN: Mary Diaz is a 74 year old year old male referred to us for non muscle invasive bladder cancer. H/o prostate cancer s/p radical prostatectomy in 08/2014 - Initially diagnosed with bladder cancer in October 2021. S/p TURBT with intravesical mitomycin. He was getting surveillance cystoscopy every 6 months. - Cystoscopy on 07/06/24 - TURBT measuring approx 4cm. Final path showed a small focus of borderline high grade papillary urothelial carcinoma in atleast 1 fragment without obvious stromal invasion (gag writer). 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 - Urology recommended induction BCG x 6 treatments. PLAN: - Doing well - Proceed with week 1 intravesical BCG treatment today. - Recent blood work is essentially unremarkable. - All his questions answered in detail - F/u in [address] Lionel Whitney [address] [place] [address] thank you for allowing me to participate in Mary Diaz care, if there are any questions or concerns please do not hesitate to contact me at the number below. I spent a total of 30 minutes on the date of the service which included preparing to see the patient, [id number] patient care, completing clinical documentation, obtaining and/or reviewing separately obtained history, performing a medically appropriate examination, counseling and educating the patient/family/caregiver, ordering medications, tests, or procedures, communicating with other HCPs (not separately reported), independently interpreting results (not separately reported), communicating results to the patient/family/caregiver, and care coordination (not separately reported). Norberto Andrade MD. Hematology/Medical Oncology [facility] [phone] CC: documented in this encounter [facility] 08-02-2024 Note HNO ID: [id number] Author: NORBERTO ANDRADE MD Service: ? Author Type: Physician Type: Progress Notes Filed: 08/02/2024 09:15 Note Text: PATIENT NAME: Mary Diaz [facility] NO.: [id number] ATTENDING PHYSICIAN: Norberto Andrade MD DATE OF SERVICE: 08/02/[address] Lionel Whitney [address] [place] [address] thank you for referring Mary Diaz for an opinion regarding non muscle invasive bladder cancer. Some of the elements of this note have been copied from my previous progress note dated 07/19/24 . All the information has been reviewed carefully. CHIEF COMPLAINT: Bladder cancer HPI: Mary Diaz is a 74 year old year old male with h/o prostate cancer, skin cancer, HTN. Initially diagnosed with bladder cancer in October 2021. S/p TURBT with intravesical mitomycin. He was getting surveillance cystoscopy every 6 months. Cystoscopy on 07/06/24 - TURBT measuring approx 4cm. Final path showed a small focus of borderline high grade papillary urothelial carcinoma in atleast 1 fragment without obvious stromal invasion (gag writer). 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 Urology recommended induction BCG x 6 treatments. H/o prostate cancer s/p radical prostatectomy in 08/2014. No smoking Occasional alcohol Doing well No major complaints. 08/02/24: - Doing well - No major complaints - C/o left hip pain - Doing intraarticular steroid injection next week on Wednesday. Current Outpatient Medications Medication Sig methocarbamol 1,000 mg tablet Take 1,000 mg by mouth as needed (bedtime prn). mv-min/folic/K1/lycopen/lutein (MEN 50 PLUS MULTIVITAMIN ORAL) Take 1 tablet by mouth once daily. lisinopril (ZESTRIL) 20 mg tablet Take 20 mg by mouth once daily. lisinopril-hydroCHLOROthiazide (ZESTORETIC) 20-12.5 mg per tablet Take 1 tablet by mouth once daily. diclofenac, EC, (VOLTAREN) 75 mg EC tablet Take 75 mg by mouth two times a day. liothyronine (CYTOMEL) 25 mcg tablet Take 25 mcg by mouth once daily. Takes 1/[address] (PROTONIX) 40 mg tablet Take 40 mg by mouth once daily. sildenafil (VIAGRA) 100 mg tablet Take 100 mg by mouth as needed. umhhsblwnse-xgdczqjyl-ekdczqdw (TRELEGY ELLIPTA) 100-62.5-25 mcg inhalation powder Inhale 1 Puff as instructed once daily. No current facility-administered medications for this visit. ALLERGIES Allergen Reactions Codeine Rash Agitation, Doesn't work PAST MEDICAL HISTORY Diagnosis Date Anemia Arthritis Bladder cancer (HCC) GERD (gastroesophageal reflux disease) History of colonic polyps Hypertension Impotence Kidney stones Prostate cancer (HCC) Spondylosis PAST SURGICAL HISTORY Procedure Laterality Date APPENDECTOMY COLONOSCOPY 05/2014 CYSTOSCOPY 04/27/2023 OPEN REPAIR OF ROTATOR CUFF ACUTE PAST SURGICAL HISTORY OF Transurethral resection of bladder tumor x4 PAST SURGICAL HISTORY OF Cystourethroscopy with dilation of urethral stricture PAST SURGICAL HISTORY OF Repair of umbilical hernia PAST SURGICAL HISTORY OF Arthroscopy of shoulder PAST SURGICAL HISTORY OF Arthroscopy of knee PAST SURGICAL HISTORY OF Cervical Vertebral fusion RADICAL PROSTATECTOMY 08/2014 SHOULDER SURGERY HX Reconstruction FAMILY HISTORY Problem Relation Age of Onset other (Type 2 diabetes) Father Hypertension Father Social History Tobacco Use Smoking status: Former Types: Cigarettes Smokeless tobacco: Never Substance Use Topics Alcohol use: Yes Drug use: Never REVIEW OF SYSTEMS GENERAL: No weight loss, malaise or fevers. No night sweats. HEENT: Negative for headaches, No changes in hearing or vision, no nose bleeds or other nasal problems. RESPIRATORY: Negative for cough, wheezing and shortness of breath CARDIOVASCULAR: Negative for chest pain, leg swelling and palpitations GI: Negative for abdominal discomfort, blood in stools or black stools and change in bowel habits : Negative for dysuria, frequency and incontinence MUSCULOSKELETAL: Negative for joint pain or swelling, back pain, and muscle pain. SKIN: Negative for lesions, rash, and itching. HEMATOLOGY/LYMPHOLOGY Negative for prolonged bleeding, bruising easily, and swollen nodes. NEURO: Negative for numbness or tingling of hands/feet. No weakness. PHYSICAL EXAMINATION: There were no vitals taken for this visit. There were no vitals taken for this visit. No data found for this vital: Wt General appearance:ECOG PERFORMANCE STATUS: 0- Fully active, able to carry on all pre-disease performance w/o restriction. Patient in NAD. Skin: Skin color, texture, turgor normal. No rashes or lesions. Eyes: Anicteric sclera. Pupils are equally round and reactive to light. Extraocular movements are intact. Breast: No palpable breast masses. No nipple change or discharge. Lymph Nodes: No cervical, supraclavicular, axillary or inguinal adenopathy. Oropharynx: Lips, mucosa, and tongue normal. Back: No pain to percussion (more content not included)... [facility] 08-01-2024 Telephone encounter Note Spoke with patient over the phone today. Patient is active with [employer], LOC 80%, $0 deductible has $0 remaining, $3500 OOP has $3400 remaining. Estimate shows patient financial responsibility is $134.16 for each treatment in 2024 until oop max is reached. Patient stated understanding. Reference #[id number]. There is currently no Bladder funding available, but will add him to my wait list. Leatha completed over the phone. He was very appreciative of my phone call. [facility] 08-01-2024 Miscellaneous Notes Spoke with patient over the phone today. Patient is active with [employer], LOC 80%, $0 deductible has $0 remaining, $3500 OOP has $3400 remaining. Estimate shows patient financial responsibility is $134.16 for each treatment in 2024 until oop max is reached. Patient stated understanding. Reference #[id number]. There is currently no Bladder funding available, but will add him to my wait list. [employer] completed over the phone. He was very appreciative of my phone call. documented in this encounter [facility] 07-26-2024 Note HNO ID: [id number] Author: INGRID UGALDE RN Service: ? Author Type: Registered Nurse Type: Progress Notes Filed: 07/26/2024 12:52 Note Text: ONCOLOGY PATIENT EDUCATION NOTE TOPIC: Chemotherapy, Medications: BCG patient here today for education for treatment of Bladder Cancer Anticipated/Scheduled start date: 08/02/24 READINESS TO LEARN: COGNITIVE ABILITY: Alert and oriented MOTIVATION TO LEARN: Interested FAMILY SUPPORT: High - Very involved in pt care INSTRUCTION PROVIDED TO: Patient INSTRUCTION PROVIDED BY: Nurse Coordinator PATIENT LEARNS BEST BY: Multiple Methods FACTORS AFFECTING LEARNING: None PHYSICAL LIMITATIONS AFFECTING LEARNING: None LEARNING RESPONSE METHOD OF INSTRUCTION: Individual instruction Written instruction/Handouts Verbal instruction PATIENT/FAMILY RESPONSE: Verbalizes understanding of: CHEMOTHERAPY-Regimen, toxicity and side effects INFECTION MANAGEMENT-Signs and symptoms of an infection and importance of contacting the physician MEDICAL REGIMEN-Importance of following prescribed medical regimen MEDICATION PRESCRIBED-Accurate knowledge of prescribed medication prior to discharge MEDICATION ROUTE-Correct route for administration of the prescribed medication MEDICATION SIDE EFFECTS-Side effects associated with the medication that warrant a call to the physician PATIENT SAFETY PRINCIPLES SYMPTOM MANAGEMENT-Correct actions to take to manage symptoms associated with his/her disease/illness WORSENING CONDITION-Signs and symptoms of a worsening condition that warrant a call to the physician Information received as demonstrated by interest and questions FOLLOW UP PLAN: Patient instructed to call with any further issues Recommend - Recommend continued instruction and follow up as directed Follow up phone call. Contact information given. SUPPLEMENTAL MATERIAL: Written material was provided at this visit with the following information: - Chemotherapy education was provided by a pharmacist NO - Side effect management information was provided/discussed including but not limited to: abdominal discomfort, anemia, appetite changes, bowel habit changes, chest pain, diet, electrolyte disturbances, fatigue, hypersensitivity reaction, infection, kidney toxicity, nausea/vomitting, neutropenia, rash, shortness of breath, skin changes, thrombocytopenia, hematuria, bladder inflammation, bladder spasms, UTI s/s YES - Provided important phone numbers and contacts during and after hours. YES - Provided information on symptoms that require immediate assistance. YES - Provided Chemotherapy when to call handouts YES - Preventing infection. YES - Treatment schedule and confirmation of appointment times. YES - Available support groups. NA - The importance of contraception during the course of chemotherapy NA - Neutropenic fever protocol discussed with patient, which included the importance of reporting any fever of 100.4F (38.0C) or greater to the healthcare team as noted on the provided wallet card and/or magnet. YES - Cancer Wellness Program Pamphlet. YES - 4[facility] Jorge A Information. YES - Patient services information. YES - My Journey binder given to pt. Time Spent: 30 minutes REFERRAL (RECOMMENDATION): N/A Ingrid Ugalde RN Traffic Representative Pre Chemo Patient identified by name and date of . YES Confirmed date and time for chemotherapy ? YES Other appointments (labs, imaging) discussed? YES Discussed where to park (rural carrier associate), charge for parking NO Discussed where to report (building/floor) NO Any pre-medications ordered? NO Described the infusion room and what to expect. (What to wear, what to bring [iPad, books] amount of time treatment can take, meals and CC options for food) YES Discussed whether the patient can eat prior to labs and treatment. YES Who is driving you to and from treatment? self Discussed why it is important to bring someone with you. No Resources discussed (music therapy, Art therapy, pet therapy, etc.) YES Education on chemotherapy (drug, side effects) discussed and that the patient will be receiving a C1D1 call within 7 days of treatment. YES Other topics discussed, interventions needed: pt has had intervesicular mitomycin in the past Ingrid Ugalde RN [facility] 07-26-2024 History of Present illness Narrative ONCOLOGY PATIENT EDUCATION NOTE TOPIC: Chemotherapy, Medications: BCG patient here today for education for treatment of Bladder Cancer Anticipated/Scheduled start date: 08/02/24 READINESS TO LEARN: COGNITIVE ABILITY: Alert and oriented MOTIVATION TO LEARN: Interested FAMILY SUPPORT: High - Very involved in pt care INSTRUCTION PROVIDED TO: Patient INSTRUCTION PROVIDED BY: Nurse Coordinator PATIENT LEARNS BEST BY: Multiple Methods FACTORS AFFECTING LEARNING: None PHYSICAL LIMITATIONS AFFECTING LEARNING: None LEARNING RESPONSE METHOD OF INSTRUCTION: Individual instruction Written instruction/Handouts Verbal instruction PATIENT/FAMILY RESPONSE: Verbalizes understanding of: CHEMOTHERAPY-Regimen, toxicity and side effects INFECTION MANAGEMENT-Signs and symptoms of an infection and importance of contacting the physician MEDICAL REGIMEN-Importance of following prescribed medical regimen MEDICATION PRESCRIBED-Accurate knowledge of prescribed medication prior to discharge MEDICATION ROUTE-Correct route for administration of the prescribed medication MEDICATION SIDE EFFECTS-Side effects associated with the medication that warrant a call to the physician PATIENT SAFETY PRINCIPLES SYMPTOM MANAGEMENT-Correct actions to take to manage symptoms associated with his/her disease/illness WORSENING CONDITION-Signs and symptoms of a worsening condition that warrant a call to the physician Information received as demonstrated by interest and questions FOLLOW UP PLAN: Patient instructed to call with any further issues Recommend - Recommend continued instruction and follow up as directed Follow up phone call. Contact information given. SUPPLEMENTAL MATERIAL: Written material was provided at this visit with the following information: - Chemotherapy education was provided by a pharmacist NO - Side effect management information was provided/discussed including but not limited to: abdominal discomfort, anemia, appetite changes, bowel habit changes, chest pain, diet, electrolyte disturbances, fatigue, hypersensitivity reaction, infection, kidney toxicity, nausea/vomitting, neutropenia, rash, shortness of breath, skin changes, thrombocytopenia, hematuria, bladder inflammation, bladder spasms, UTI s/s YES - Provided important phone numbers and contacts during and after hours. YES - Provided information on symptoms that require immediate assistance. YES - Provided Chemotherapy when to call handouts YES - Preventing infection. YES - Treatment schedule and confirmation of appointment times. YES - Available support groups. NA - The importance of contraception during the course of chemotherapy NA - Neutropenic fever protocol discussed with patient, which included the importance of reporting any fever of 100.4F (38.0C) or greater to the healthcare team as noted on the provided wallet card and/or magnet. YES - Cancer Wellness Program Pamphlet. YES - 4[facility] Jorge A Information. YES - Patient services information. YES - My Journey binder given to pt. Time Spent: 30 minutes REFERRAL (RECOMMENDATION): N/A Ingrid Ugalde, RN Traffic Representative Pre Chemo Patient identified by name and date of . YES Confirmed date and time for chemotherapy ? YES Other appointments (labs, imaging) discussed? YES Discussed where to park (rural carrier associate), charge for parking NO Discussed where to report (building/floor) NO Any pre-medications ordered? NO Described the infusion room and what to expect. (What to wear, what to bring [iPad, books] amount of time treatment can take, meals and CC options for food) YES Discussed whether the patient can eat prior to labs and treatment. YES Who is driving you to and from treatment? self Discussed why it is important to bring someone with you. No Resources discussed (music therapy, Art therapy, pet therapy, etc.) YES Education on chemotherapy (drug, side effects) discussed and that the patient will be receiving a C1D1 call within 7 days of treatment. YES Other topics discussed, interventions needed: pt has had intervesicular mitomycin in the past Ingrid Ugalde RN documented in this encounter [facility] 07-19-2024 Instructions Norberto Andrade MD - 07/19/2024 11:04 AM EST Chemo teach for intravesical BCG Start treatment in 2 weeks F/u in 2 weeks documented in this encounter [facility] 07-19-2024 History of Present illness Narrative Images from the original note were not included. PATIENT NAME: Mary Diaz [facility] NO.: [id number] ATTENDING PHYSICIAN: Norberto Andrade MD DATE OF SERVICE: July 19, [address] Lionel Whitney [address] [facility] [address] thank you for referring Mary Diaz for an opinion regarding non muscle invasive bladder cancer. CHIEF COMPLAINT: Bladder cancer HPI: Mary Diaz is a 74 year old year old male with h/o prostate cancer, skin cancer, HTN. Initially diagnosed with bladder cancer in October 2021. S/p TURBT with intravesical mitomycin. He was getting surveillance cystoscopy every 6 months. Cystoscopy on 07/06/24 - TURBT measuring approx 4cm. Final path showed a small focus of borderline high grade papillary urothelial carcinoma in atleast 1 fragment without obvious stromal invasion (gag writer). 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 Urology recommended induction BCG x 6 treatments. H/o prostate cancer s/p radical prostatectomy in 08/2014. No smoking Occasional alcohol Doing well No major complaints No current outpatient medications on file. No current facility-administered medications for this visit. ALLERGIES Not on File No past medical history on file. No past surgical history on file. No family history on file. REVIEW OF SYSTEMS GENERAL: No weight loss, malaise or fevers. No night sweats. HEENT: Negative for headaches, No changes in hearing or vision, no nose bleeds or other nasal problems. RESPIRATORY: Negative for cough, wheezing and shortness of breath CARDIOVASCULAR: Negative for chest pain, leg swelling and palpitations GI: Negative for abdominal discomfort, blood in stools or black stools and change in bowel habits : Negative for dysuria, frequency and incontinence MUSCULOSKELETAL: Negative for joint pain or swelling, back pain, and muscle pain. SKIN: Negative for lesions, rash, and itching. HEMATOLOGY/LYMPHOLOGY Negative for prolonged bleeding, bruising easily, and swollen nodes. NEURO: Negative for numbness or tingling of hands/feet. No weakness. PHYSICAL EXAMINATION: There were no vitals taken for this visit. There were no vitals taken for this visit. No data found for this vital: Wt General appearance:ECOG PERFORMANCE STATUS: 0- Fully active, able to carry on all pre-disease performance w/o restriction. Patient in NAD. Skin: Skin color, texture, turgor normal. No rashes or lesions. Eyes: Anicteric sclera. Pupils are equally round and reactive to light. Extraocular movements are intact. Breast: No palpable breast masses. No nipple change or discharge. Lymph Nodes: No cervical, supraclavicular, axillary or inguinal adenopathy. Oropharynx: Lips, mucosa, and tongue normal. Back: No pain to percussion. Negative SLR test Lungs clear to auscultation, No wheezing or rhonchi Heart: RRR without murmur, gallop, or rubs. Abdomen soft, non-tender. No masses, organomegaly Extremities: No deformities. No edema Neuro: Gait and speech normal. Reflexes normal and symmetric. Muscular strength intact. Sensation grossly intact. Rectal: Deferred : Deferred LABS: No results found for: GLUC , K , NA , CHLOR , CO2 , CREAT , BUN , ANION , CA , TPROT , ALB , TBILI , ALKPHOS , AST , ALT No results found for: WBC , RBC , HB , HCT , MCV , MCH , MCHC , RDWCV , PLT , MPV , NEUT , ABSNEUT , LYMPHP , ABSLYMPH , MONOP , ABSMONO , EOSINP , ABSEOSIN , BASOP , ABSBASO PATH: IMAGING: ASSESSMENT AND PLAN: Mary Diaz is a 74 year old year old male referred to us for non muscle invasive bladder cancer. H/o prostate cancer s/p radical prostatectomy in 08/2014 PLAN: - Initially diagnosed with bladder cancer in October 2021. S/p TURBT with intravesical mitomycin. He was getting surveillance cystoscopy every 6 months. - Cystoscopy on 07/06/24 - TURBT measuring approx 4cm. Final path showed a small focus of borderline high grade papillary urothelial carcinoma in atleast 1 fragment without obvious stromal invasion (gag writer). 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 - Urology recommended induction BCG x 6 treatments. - We will start him on weekly BCG treatments after 2 weeks from today - Check CBC CMP - All his questions answered in detail - F/u in [address] Lionel Whitney [address] [facility] [address] thank you for allowing me to participate in Mary Diaz care, if there are any questions or concerns please do not hesitate to contact me at the number below. I spent a total of 60 minutes on the date of the service which included preparing to see the patient, [id number] patient care, completing clinical documentation, obtaining and/or reviewing separately obtained history, performing a medically appropriate examination, counseling and educating the patient/family/caregiver, ordering medications, tests, or procedures, communicating with other HCPs (not separately reported), independently interpreting results (not separately reported), communicating results to the patient/family/caregiver, and care coordination (not separately reported). Norberto Andrade MD. Hematology/Medical Oncology [facility] [phone] CC: documented in this encounter [facility] 07-19-2024 Note HNO ID: [id number] Author: NORBERTO ANDRADE MD Service: ? Author Type: Physician Type: Progress Notes Filed: 07/19/2024 11:42 Note Text: PATIENT NAME: Mary Diaz [facility] NO.: [id number] ATTENDING PHYSICIAN: Norberto Andrade MD DATE OF SERVICE: July 19, [address] Lionel Whitney [address] [facility] [address] thank you for referring Mary Diaz for an opinion regarding non muscle invasive bladder cancer. CHIEF COMPLAINT: Bladder cancer HPI: Mary Diaz is a 74 year old year old male with h/o prostate cancer, skin cancer, HTN. Initially diagnosed with bladder cancer in October 2021. S/p TURBT with intravesical mitomycin. He was getting surveillance cystoscopy every 6 months. Cystoscopy on 07/06/24 - TURBT measuring approx 4cm. Final path showed a small focus of borderline high grade papillary urothelial carcinoma in atleast 1 fragment without obvious stromal invasion (gag writer). 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 Urology recommended induction BCG x 6 treatments. H/o prostate cancer s/p radical prostatectomy in 08/2014. No smoking Occasional alcohol Doing well No major complaints No current outpatient medications on file. No current facility-administered medications for this visit. ALLERGIES Not on File No past medical history on file. No past surgical history on file. No family history on file. REVIEW OF SYSTEMS GENERAL: No weight loss, malaise or fevers. No night sweats. HEENT: Negative for headaches, No changes in hearing or vision, no nose bleeds or other nasal problems. RESPIRATORY: Negative for cough, wheezing and shortness of breath CARDIOVASCULAR: Negative for chest pain, leg swelling and palpitations GI: Negative for abdominal discomfort, blood in stools or black stools and change in bowel habits : Negative for dysuria, frequency and incontinence MUSCULOSKELETAL: Negative for joint pain or swelling, back pain, and muscle pain. SKIN: Negative for lesions, rash, and itching. HEMATOLOGY/LYMPHOLOGY Negative for prolonged bleeding, bruising easily, and swollen nodes. NEURO: Negative for numbness or tingling of hands/feet. No weakness. PHYSICAL EXAMINATION: There were no vitals taken for this visit. There were no vitals taken for this visit. No data found for this vital: Wt General appearance:ECOG PERFORMANCE STATUS: 0- Fully active, able to carry on all pre-disease performance w/o restriction. Patient in NAD. Skin: Skin color, texture, turgor normal. No rashes or lesions. Eyes: Anicteric sclera. Pupils are equally round and reactive to light. Extraocular movements are intact. Breast: No palpable breast masses. No nipple change or discharge. Lymph Nodes: No cervical, supraclavicular, axillary or inguinal adenopathy. Oropharynx: Lips, mucosa, and tongue normal. Back: No pain to percussion. Negative SLR test Lungs clear to auscultation, No wheezing or rhonchi Heart: RRR without murmur, gallop, or rubs. Abdomen soft, non-tender. No masses, organomegaly Extremities: No deformities. No edema Neuro: Gait and speech normal. Reflexes normal and symmetric. Muscular strength intact. Sensation grossly intact. Rectal: Deferred : Deferred LABS: No results found for: GLUC , K , NA , CHLOR , CO2 , CREAT , BUN , ANION , CA , TPROT , ALB , TBILI , ALKPHOS , AST , ALT No results found for: WBC , RBC , HB , HCT , MCV , MCH , MCHC , RDWCV , PLT , MPV , NEUT , ABSNEUT , LYMPHP , ABSLYMPH , MONOP , ABSMONO , EOSINP , ABSEOSIN , BASOP , ABSBASO PATH: IMAGING: ASSESSMENT AND PLAN: Mary Diaz is a 74 year old year old male referred to us for non muscle invasive bladder cancer. H/o prostate cancer s/p radical prostatectomy in 08/2014 PLAN: - Initially diagnosed with bladder cancer in October 2021. S/p TURBT with intravesical mitomycin. He was getting surveillance cystoscopy every 6 months. - Cystoscopy on 07/06/24 - TURBT measuring approx 4cm. Final path showed a small focus of borderline high grade papillary urothelial carcinoma in atleast 1 fragment without obvious stromal invasion (gag writer). 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 - Urology recommended induction BCG x 6 treatments. - We will start him on weekly BCG treatments after 2 weeks from today - Check CBC CMP - All his questions answered in detail - F/u in [address] Lionel Whitney [address] [place] [address] thank you for allowing me to participate in Mary Diaz care, if there are any questions or concerns please do not hesitate to contact me at the number below. I spent a total of 60 minutes on the date of the service which included preparing to see the patient, [id number] patient care, completing clinical documentation, obtaining and/or reviewing separately obtained history, performing a medically appropriate examination, counseling and educating the patient/family/caregiver, ordering medi (more content not included)... [facility] 07-17-2024 History of Present illness Narrative Seen initially April 2024. Blood work and echocardiogram were ordered. Carotid ultrasound was ordered. Lisinopril was increased from 20 mg daily to lisinopril hydrochlorothiazide 40/12.5 mg daily patient was seen for blood pressure management. Subjective : Interval history is notable for diagnosis of bladder cancer, papillary carcinoma, had surgery, may need chemotherapy. Patient reports that he previously had prostate cancer and underwent prostate removal, also has had skin cancer. Reviewed results of testing. Blood pressure log reviewed, blood pressure is still above target. Today blood pressure is not much different between the right and the left upper extremity. Patient however reports that at home he gets higher blood pressures in his right arm compared to the left. Continues to have exertional shortness of breath without orthopnea or PND or lower extremity edema 12 point ROS is negative or non contributory except as noted. History so Far : 1. Primary hypertension 2. Intolerance to metoprolol, intolerance to amlodipine 3. Left carotid bruit on examination 05/08/2024 4. Cannot exclude left supraclavicular bruit 05/08/2024 5. Asymmetric upper extremity blood pressures, left arm blood pressure is 20 points lower than the right arm blood pressure systolic 6. Mixed hyperlipidemia 7. Quit smoking around 2004 8. Personal history of COVID 19 9. Spondylosis of cervical spine with radiculopathy 10. Asymmetric upper extremity blood pressures with left carotid bruit and left supraclavicular bruit, no symptoms of subclavian steal. 11. Echocardiogram May 2024-LVEF 60 to 65% grade 1 diastolic dysfunction normal RV systolic function left atrial diameter 3.5 cm trace mitral regurgitation trace aortic regurgitation trace tricuspid regurgitation normal IVC RV systolic pressure 30 mmHg 12. Carotid ultrasound May 2024-50 to 69% bilateral internal carotid artery stenosis, bilateral antegrade vertebral flow. Peak systolic velocity on the right 140 cm/s on the left side 135 cm/s 13. Edema to amlodipine, intolerance to metoprolol 14. Hypertensive kidney disease stage IIIa GFR high 40s low 50s 15. Abnormal EKG, poor R wave progression and left atrial abnormality Past Surgical History: He has a past surgical history that includes Appendectomy; Hernia repair; Ankle ligament reconstruction; Rotator cuff repair; Prostatectomy; Knee arthroscopy w/ debridement; Colonoscopy; and Cystoscopy. Objective Wt Readings from Last 3 Encounters: 07/17/24 88.6 kg (195 lb 6.4 oz) 06/09/24 86.6 kg (191 lb) 05/08/24 86.8 kg (191 lb 6.4 oz) Vitals: 07/17/24 1051 07/17/24 1116 07/17/24 1117 BP: 142/80 152/88 142/80 BP Location: Left arm Left arm Right arm Patient Position: Sitting Sitting Sitting Pulse: 72 Weight: 88.6 kg (195 lb 6.4 oz) Height: 1.829 m (6') Physical Exam: GENERAL APPEARANCE: in no acute distress. CHEST: Symmetric and non-tender. INTEGUMENT: Skin warm and dry HEENT: No gross abnormalities identified.No pallor or scleral icterus. NECK: Supple, no JVD, left carotid and supraclavicular bruit NEURO/PSHCY: Alert and oriented x3; appropriate behavior and responses and responses LUNGS: Clear to auscultation bilaterally; normal respiratory effort. HEART: Rate and rhythm regular with no evident murmur; no gallop appreciated. ABDOMEN: Soft, non tender. MUSCULOSKELETAL: No gross deformities. EXTREMITIES: Warm There is no edema noted. Meds: Current Outpatient Medications Medication Instructions diclofenac (VOLTAREN) 75 mg, 2 times daily HYDROcodone-acetaminophen ([place]) 5-325 mg tablet 1 tablet, Daily PRN liothyronine (Cytomel) 25 mcg tablet 0.5 tablets, Daily lisinopriL-hydrochlorothiazide 20-12.5 mg tablet 1 tablet, oral, Daily lisinopril 20 mg, Daily methocarbamol (ROBAXIN) 500 mg, Daily PRN pantoprazole (PROTONIX) 40 mg, Every evening rosuvastatin (CRESTOR) 20 mg, oral, Daily Trelegy Ellipta 100-62.5-25 mcg blister with device 1 puff, Daily Allergies Allergen Reactions Codeine Agitation LABS: May 2024-sodium 137 potassium 4.3 GFR 46 BUN 35 creatinine 1.5 Patient Active Problem List Diagnosis Date Noted Bilateral carotid artery disease ([facility]) 07/17/2024 Chest pressure 07/17/2024 BMI 26.0-26.9,adult 05/08/2024 Former smoker 05/08/2024 Uncontrolled hypertension 05/08/2024 History of prostate cancer 05/08/2024 Hx of bladder cancer 05/08/2024 History of fractured rib 05/08/2024 Hyperlipidemia 05/08/2024 Unequal blood pressure in upper extremities 05/08/2024 Left carotid bruit 05/08/2024 Medication course changed 05/08/2024 Shortness of breath 05/08/2024 Assessment: 1. Uncontrolled hypertension Follow Up In Cardiology 2. Unequal blood pressure in upper extremities 3. Mixed hyperlipidemia 4. Former smoker 5. Bilateral carotid artery stenosis 6. History of prostate cancer 7. Hx of bladder cancer 8. Medication course changed 9. Chest pressure 10. Shortness of breath 11. BMI 26.0-26.9,adult Clinical decision making: Blood pressure control is improving Test results reviewed GFR has decreased slightly on higher doses of lisinopril with hydrochlorothiazide combination Recent diagnosis and treatment for bladder cancer To further evaluate his exertional shortness of breath, in the setting of multiple cardiac risk factors and abnormal EKG we will proceed with stress Myoview, may switch to Lexiscan Myoview as needed He is tolerating the rosuvastatin so far Repeat carotid ultrasound in 6 months Comprehensive profile and lipid profile in 6 months Doxazosin 1 mg daily, may take it in the morning lunchtime or at bedtime. Follow up : 6 months Provider Attestation - Scribe documentation All medical record entries made by the Scribe were at my direction and personally dictated by me. I have reviewed the chart and agree that the record accurately reflects my personal performance of the history, physical exam, discussion and plan. Scribe Attestation By signing my name below, Lillie VieraBradford GONZALEZ , Scribsukhwinder attest that this documentation has been prepared under the direction and in the presence of Cady Espinosa MD. documented in this encounter [facility] Work Phone: 07-17-2024 Instructions Lillie Garcia LPN - 07/17/2024 10:45 AM EST Please bring all medicines, vitamins, and herbal supplements with you when you come to the office. Prescriptions will not be filled unless you are compliant with your follow up appointments or have a follow up appointment scheduled as per instruction of your physician. Refills should be requested at the time of your visit. BMI was above normal measurement. Current weight: 88.6 kg (195 lb 6.4 oz) Weight change since last visit (-) denotes wt loss 4.4 lbs Weight loss needed to achieve BMI 25: 11.5 Lbs Weight loss needed to achieve BMI 30: -25.3 Lbs Provided instructions on dietary changes Provided instructions on exercise. documented in this encounter [facility] Work Phone: 07-12-2024 Hospital Discharge instructions Patient Education 07/12/2024 10:54:35 Bladder Cancer Bladder Cancer Bladder cancer is a condition [...] you more likely to develop this condition: Smoking. Working where there are risks (occupational exposures), such as working with rubber, leather, clothing fabric, dyes, chemicals, or paint. Being 55 years of age or older. Being male. Having long-term bladder inflammation. Having a history of cancer. This includes: ?A family history of bladder cancer. ?Having had bladder cancer before. ?Having had certain treatments for cancer before, such as: ?Medicines to kill cancer cells (chemotherapy). ?Strong X-ray beams or high-energy capsules to kill cancer cells and shrink tumors (radiation therapy). Having been exposed to arsenic. This is a poisonous substance. What are the signs or symptoms? Early symptoms of this condition include: Blood in your urine. Pain when urinating. Infections of your urinary system (urinary tract infections or UTIs) that happen often. Having to urinate sooner or more often than normal. Late symptoms of this condition include: Not being able to urinate. Pain on one side of your lower back. Loss of appetite. Weight loss. Tiredness (fatigue). Swelling in your feet. Bone pain. How is this diagnosed? This condition is diagnosed based on: Your medical history. A physical exam. Lab tests, such as urine tests. Imaging tests. Your symptoms. You may also have other tests or procedures, such as: A cystoscopy. This involves putting a narrow tube into your urethra. The urethra is the organ that carries urine from your bladder to the outside of your body. This procedure is done to view the lining of your bladder for tumors. A biopsy. This involves removing a tissue sample to look at under a microscope to check for cancer. Blood tests or imaging tests may be needed. These show how far into the bladder wall cancer has grown, and if cancer has spread to any other parts of your body. Tests may include: CT scan. MRI. Bone scan. X-ray. How is this treated? Your health care provider may recommend one or more types of treatment based on the stage of your cancer. The most common treatments are: Surgery to remove the cancer. Types of surgeries include: ?Removing a tumor on the inside wall of the bladder (transurethral resection). ?Removing the bladder (cystectomy). Radiation therapy. This is often combined with chemotherapy. Chemotherapy. Immunotherapy. This uses medicines to help your body's disease-fighting system (immune system) destroy cancer cells. Follow these instructions at home: Take hpef-uzt-lbjrkym and prescription medicines only as told by your health care provider. If you were prescribed an antibiotic medicine, take it as told by your health care provider. Do not stop using the antibiotic even if you start to feel better. Eat a healthy diet. Some treatments might affect your appetite. Do not use any products that contain nicotine or tobacco. These products include cigarettes, chewing tobacco, and vaping devices, such as e-cigarettes. If you need help quitting, ask your health care provider. Consider joining a support group. This may help you learn to deal with the stress of having bladder cancer. Tell your cancer care team if you develop side effects. Your team may be able to recommend ways to get relief. Keep all follow-up visits. This is important. Where to find more information [employer] (ACS): cancer.org National Cancer [place] (NCI): cancer.gov Contact a health care provider if: You have symptoms of a UTI. These include: ?Fever. ?Chills. ?Weakness. ?Muscle aches. ?Pain in your abdomen. ?Urge to urinate that is stronger and happens more often than normal. ?Burning in the bladder or urethra when you urinate. Get help right away if: There is blood in your urine. You cannot urinate. You have severe pain or other symptoms that do not go away. Summary Bladder cancer is a condition where tumors grow in the bladder. Diagnosis is based on your medical history, a physical exam, lab tests, imaging tests, and your symptoms. Your health care provider may recommend one or more types of treatment based on the stage of your cancer. Consider joining a support group. This may help you learn to deal with the stress of having bladder cancer. This information is not intended to replace advice given to you by your health care provider. Make sure you discuss any questions you have with your health care provider. Document Revised: 05/18/2022 Document Reviewed: 05/18/2022 swabr Patient Education 2023 [place]. Follow Up Care 05/09/2024 13:40:51 With:DEVONTE NOBLE, Lionel Burgos, URL Address: [facility] [address] , [place] [address]- When: Unknown [facility] 07-12-2024 Note Patient Education Oncology Bladder Cancer Bladder cancer [...] you more likely to develop this condition: ??? Smoking. ??? Working where there are risks (occupational exposures), such as working with rubber, leather, clothing fabric, dyes, chemicals, or paint. ??? Being 55 years of age or older. ??? Being male. ??? Having long-term bladder inflammation. ??? Having a history of cancer. This includes: ? A family history of bladder cancer. ? Having had bladder cancer before. ? Having had certain treatments for cancer before, such as: ? Medicines to kill cancer cells (chemotherapy). ? Strong X-ray beams or high-energy capsules to kill cancer cells and shrink tumors (radiation therapy). ??? Having been exposed to arsenic. This is a poisonous substance. What are the signs or symptoms? Early symptoms of this condition include: ??? Blood in your urine. ??? Pain when urinating. ??? Infections of your urinary system (urinary tract infections or UTIs) that happen often. ??? Having to urinate sooner or more often than normal. Late symptoms of this condition include: ??? Not being able to urinate. ??? Pain on one side of your lower back. ??? Loss of appetite. ??? Weight loss. ??? Tiredness (fatigue). ??? Swelling in your feet. ??? Bone pain. How is this diagnosed? This condition is diagnosed based on: ??? Your medical history. ??? A physical exam. ??? Lab tests, such as urine tests. ??? Imaging tests. ??? Your symptoms. You may also have other tests or procedures, such as: ??? A cystoscopy. This involves putting a narrow tube into your urethra. The urethra is the organ that carries urine from your bladder to the outside of your body. This procedure is done to view the lining of your bladder for tumors. ??? A biopsy. This involves removing a tissue sample to look at under a microscope to check for cancer. Blood tests or imaging tests may be needed. These show how far into the bladder wall cancer has grown, and if cancer has spread to any other parts of your body. Tests may include: ??? CT scan. ??? MRI. ??? Bone scan. ??? X-ray. How is this treated? Your health care provider may recommend one or more types of treatment based on the stage of your cancer. The most common treatments are: ??? Surgery to remove the cancer. Types of surgeries include: ? Removing a tumor on the inside wall of the bladder (transurethral resection). ? Removing the bladder (cystectomy). ??? Radiation therapy. This is often combined with chemotherapy. ??? Chemotherapy. ??? Immunotherapy. This uses medicines to help your body's disease-fighting system (immune system) destroy cancer cells. Follow these instructions at home: ??? Take xxda-pyk-vsiknvr and prescription medicines only as told by your health care provider. ??? If you were prescribed an antibiotic medicine, take it as told by your health care provider. Do not stop using the antibiotic even if you start to feel better. ??? Eat a healthy diet. Some treatments might affect your appetite. ??? Do not use any products that contain nicotine or tobacco. These products include cigarettes, chewing tobacco, and vaping devices, such as e-cigarettes. If you need help quitting, ask your health care provider. ??? Consider joining a support group. This may help you learn to deal with the stress of having bladder cancer. ??? Tell your cancer care team if you develop side effects. Your team may be able to recommend ways to get relief. ??? Keep all follow-up visits. This is important. Where to find more information ??? [employer] (ACS): cancer.org ??? National Cancer [place] (NCI): cancer.gov Contact a health care provider if: ??? You have symptoms of a UTI. These include: ? Fever. ? Chills. ? Weakness. ? Muscle aches. ? Pain in your abdomen. ? Urge to urinate that is stronger and happens more often than normal. ? Burning in the bladder or urethra when you urinate. Get help right away if: ??? There is blood in your urine. ??? You cannot urinate. ??? You have severe pain or other symptoms that do not go away. Summary ??? Bladder cancer is a condition where tumors grow in the bladder. ??? Diagnosis is based on your medical history, a physical exam, lab tests, imaging tests, and your symptoms. ??? Your health care provider may recommend one or more types of treatment based on the stage of your cancer. ??? Consider joining a support group. This may help you learn to deal with the stress of having bladder cancer. This information is n (more content not included)... [facility] 05-09-2024 Evaluation + Plan note Extrac malik [...] Date:07/12/2024 10:30:00 AM Scheduled Provider:Lionel WHITNEY MD Location:[facility] Appointment Type:URO Office Visit Appointment Date:10/09/2024 10:15:00 AM Scheduled Provider:Lionel WHITNEY MD Location:[facility] Appointment Type:URO Office Visit Diagnostic Tests Pending * [facility] Fish [facility] Urine Cyto ([facility]) 05/09/24 [facility] [phone] Hospital Discharge instructions Patient Education 05/09/2024 09:39:50 [...] Up Care 04/13/2024 11:43:40 With:Lionel WHITNEY Address: [address] [place] [address] [place] [address]- Business (1) When: Unknown Comments:Office will call to schedule follow up [facility] 11-19-2024 NoteProgress Note-Physician Patient: MARY DIAZ Age: [...] All Problems HTN (hypertension) / SNOMED CT [id number] / Confirmed Acute gouty arthritis / SNOMED CT [id number] / Confirmed lots of inflammation per pt sometimes has to get steroids History of prostate cancer / SNOMED CT 7492607572 / Confirmed History of kidney stones / SNOMED CT 8606524626 / Confirmed Impotence / SNOMED CT 3708973262 / Confirmed Bladder cancer / SNOMED CT 0228746655 / Confirmed Spondylolisthesis of cervical region / SNOMED CT 735158470 / Confirmed Chronic obstructive pulmonary disease / SNOMED CT 10162628 / Confirmed GERD (gastroesophageal reflux disease) / SNOMED CT 000621370 / Confirmed BMI 23.0-23.9, adult / SNOMED CT 4288668947 / Confirmed Personal history of colonic polyps / SNOMED CT 4774413661 / Confirmed Chronic GERD / SNOMED CT 432314125 / Confirmed Change in bowel habits / SNOMED CT 038286383 / Confirmed Iron deficiency anemia / SNOMED CT 668506648 / Confirmed Personal history of bladder cancer / SNOMED CT 5164629881 / Confirmed Shoulder impingement syndrome / SNOMED CT 358942861 / Confirmed Ecchymosis / SNOMED CT 188967196 / Confirmed left leg from españa to ankle- box with snowblower in it slipped off a cart and banged his leg. Foot pink and dry with immediate capillary refill, 4t pedal and poterior tibial pulses. Umbilical hernia / SNOMED CT 2037458684 / Confirmed Histories Past Medical History: Active HTN (hypertension) ([id number]) Acute gouty arthritis ([id number]) Comments: 08/22/2014 EST 16:07 Jannette Del Rio RN lots of inflammation per pt sometimes has to get steroids Resolved Cancer of prostate ([id number]): Resolved. Comments: 08/22/2014 EST 16:09 Jannette Del Rio RN just had a surgery done radical prostectomy at [facility] Acid reflux ([id number]): Resolved. Family History: Hypertension Father Diabetes mellitus type 2 Father Depression Sister Procedure history: Cystoscopy ([id number]) on 04/27/2023 at 73 Years. TURBT - Transurethral resection of bladder tumor ([id number]) on 01/14/2023 at 72 Years. TURBT - Transurethral resection of bladder tumor ([id number]) on 02/17/2022 at 72 Years. TURBT - Transurethral resection of bladder tumor ([id number]) on 10/29/2021 at 71 Years. Cystourethroscopy with dilation of urethral stricture ([id number]) on 10/14/2021 at 71 Years. Repair of umbilical hernia ([id number]) on 06/22/2017 at 67 Years. Comments: 06/22/2017 14:35 Nedra Tavares RN Umbilical hernia repair with mesh ( assisted with robot) Arthroscopy of shoulder ([id number]) on 05/20/2017 at 67 Years. Comments: 05/20/2017 19:03 CASS Garcia RN, Zora Rogers LEFT SHOULDER ARTHROSCOPIC, CHONDROPLASTY,DEBRIDEMENT OF PARTIAL ROTATOR CUFF TEAR, REMOVAL RETAINED SUTURE Radical prostatectomy ([id number]) in the month of 08/2014 at 64 Years. bilateral fifth partial metatarsal osteotomies and Silver Tailor's bunionectomies on 08/29/2014 at 64 Years. Colonoscopy ([id number]) in the month of 05/2014 at 64 Years. Complete repair of rotator cuff ([id number]) in 2010 at 61 Years. Comments: 08/22/2014 16:14 Jannette Del Rio RN right Shoulder reconstruction ([id number]) in 1998 at 49 Years. Comments: 08/22/2014 16:15 Jannette Del Rio RN left possibly a screw in there per pt Appendectomy ([id number]) in 1964 at 15 Years. Arthroplasty of the ankle ([id number]). Comments: 12/30/2018 14:30 Jayne Elkins 1988, 1990 Arthroscopy of knee ([id number]). Cervical vertebral fusion ([id number]). Social History Social & Psychosocial Habits Alcohol 10/04/2023 Risk Assessment: Low Risk 10/04/2023 Use: Current Substance Abuse 10/04/2023 Risk Assessment: Denies Substance Abuse Tobacco 10/04/2023 Risk Asse (more content not included)...[facility] Comment on above:Result Comment: Electronically Signed By: DEVONTE NOBLE, Lionel Ernandez\Date and Time Signed: 05/09/24 09:50 [id number] NotePatient Education Custom Cystoscopy ??? Voiding after [...] if you have a fever over 100 degrees.[facility] 05-08-2024 NoteNormal sinus rhythm 67 bpm left axis deviation incomplete right bundle branch block poor R wave progression. No comparison EKG.[id number] History of Present illness Narrative* Cady Espinosa MD - 05/08/2024 11:15 AM EST Referred by Dr. Qamar Monterroso for New Patient Visit (Utrsqzfp-Xsiklh-Hclawixjwjte) History Of Present Illness: Mary Diaz is [...] (VOLTAREN) 75 mg, 2 times daily HYDROcodone-acetaminophen (Lovell) 5-325 mg tablet 1 tablet, Daily PRN [...] further questions arise, Sincerely, Cady Espinosa MD FACC Provider Attestation - Scribe documentation All medical record entries made by the Scribe were at my direction and personally dictated by me. Ihave reviewed the chart and agree that the record accurately reflects my personal performance of the history, physical exam, discussion and plan. [facility] Work Phone: 1(481) 403-710611-18-2024 Instructions* Patient Instructions* Ella Cruz RN - [...] Provided instructions on exercise. [facility] Work Phone: 1(558) 583-579705-07-2024 Hospital Discharge instructions Patient Education 10/26/2023 11:58:55 [...] Up Care 09/29/2023 09:06:13 With:Lionel DEVONTE Address: [address] [place] [address] [place] [address] Business (1) When: Unknown Comments:Office will call to schedule follow up [facility]05-07-2024 Note [id number]-2023 NoteCustom Cystoscopy ? Voiding after the [...] if you have a fever over 100 degrees.[facility] 10-04-2023 Hospital Discharge instructions Patient Education [...] if anything looks unusual. Men with a jujiqm-udmn-lzfona risk for skin cancer may want to see a bark skinner (assistant boys track coach) for an annual body check. What are the benefits of screening? Cancer screening is done to look for cancer in the very early stages, before it spreads and becomesharder to treat and before you would start to notice symptoms. Finding cancer early improves the chances of successful treatment. It may save your life. Where to find more information [employer]: www.cancer.org Centers for Disease Control and Prevention: www.cdc.gov National Cancer [place]: www.cancer.gov Contact a health care provider if: [...] provider. Document Revised: 11/03/2021 Document Reviewed: 05/03/2020 swabr Patient Education 2022 [employer]. Follow Up Care 10/01/2022 10:55:16 With:DEVONTE NOBLE, Lionel Burgos, URL Address: [facility] [address] [place] [address]- [phone] When: Unknown Comments:1 yr w/ PSA [facility] 11-07-2023 Hospital Discharge instructions Patient Education [...] Address: [facility] [address] [place] [address]- Business (1) When: Unknown Comments:Office will call to schedule follow up [facility]07-18-2023 Hospital Discharge instructions Patient Education 01/05/2023 10:55:52 [...] [facility] [address], [place] [address]- Business (1) When: Unknown Comments:Office will call to schedule follow up [facility]06-15-2023 Evaluation note* Encounter Date Diagnosis Assessment Notes [...] M46.1) Nov, Neurogenic claudication (ICD-10 - R29.818) [facility] Other 05-04-2023 Evaluation note* Encounter Date Diagnosis [...] spine October, Neurogenic claudication (ICD-10 - R29.818) [facility] Other 04-03-2023 Hospital Discharge instructions Patient Education [...] if anything looks unusual. Men with a fgynyd-eepc-qdxeig risk for skin cancer may want to see a bark skinner (assistant boys track coach) for an annual body check. Where to find more information National Cancer [place]: https://www.cancer.gov/about-cancer/screening Centers for Disease Control and Prevention: https://www.cdc.gov/cancer/dcpc/prevention/screening.htm [employer]: https://www.cancer.org/latest-news/9-xifbgy-yhfdhbupk-pymvl-yfx-hqm.html Contact a health care provider if: You [...] 03/04/2017 Document Revised: 02/24/2019 Document Reviewed: 03/04/2017 swabr Patient Education 2020 [employer]. Follow Up Care 09/19/2021 11:05:08 With:DEVONTE NOBLE, CAROLINA Salazar Address: [facility] [address], [place] [address]- When: Unknown [facility] 01-17-2023 Hospital Discharge instructions Patient Education 07/07/2022 [...] Address: [facility] [address], [place] [address]- Business (1) When: Unknown Comments:Office will call to schedule follow up [facility]09-06-2022 Hospital Discharge instructions [...] if anything looks unusual. Men with a ulsurt-fyun-uuywzv risk for skin cancer may want to see a bark skinner (assistant boys track coach) for an annual body check. Where to find more information National Cancer [place]: https://www.cancer.gov/about-cancer/screening Centers for Disease Control and Prevention: https://www.cdc.gov/cancer/dcpc/prevention/screening.htm [employer]: https://www.cancer.org/latest-news/3-naedtn-gegahvcec-rflgu-qat-dsz.html Contact a health care provider if: You [...] 03/04/2017 Document Revised: 02/24/2019 Document Reviewed: 03/04/2017 swabr Patient Education 2020 [employer]. Follow Up Care 02/05/2022 13:48:40 With:Lionel WHITNEY MD, URL Address: [facility] [address] [place] [address]- [phone] When: Unknown [facility] [place] [phone] Hospital Discharge instructions Patient Education 11/11/2021 09:47:46 [...] Address: [facility] [address] [place] [address]- Business (1) When: Unknown Comments:Keep scheduled appointment [facility]05-17-2022 Hospital Discharge instructions [...] who: Are older than age 65. Are -Vietnamese. Are obese. Have a family history of [...] cells. Follow these instructions at home: Take artr-fpa-jpriwrf and prescription medicines only as told by [...] 06/07/2006 Document Revised: 05/20/2018 Document Reviewed: 02/15/2017 swabr Patient Education 2020 [employer]. Follow Up Care 10/14/2021 11:26:04 With:Lionel WHITNEY MD, URL Address: [facility] [address], [place] [address]- When: Unknown [facility]ive evTongxueation + Plan note Future Appointments Appointment Date:09/21/2022 09:45:00 AM Scheduled Provider:Lionel WHITNEY MD Location:[facility] Appointment Type:URO Office Visit [facility] hCentive evTongxueation + Plan note Future Appointments Appointment Date:03/09/2022 09:00:00 AM Scheduled Provider: Location:[facility] [place] Appointment Type:URO Nurse Visit Appointment Date:04/15/2022 09:00:00 AM Scheduled Provider: Location:[facility] [place] Appointment Type:URO Nurse Visit Appointment Date:09/21/2022 09:45:00 AM Scheduled Provider:Lionel WHITNEY MD Location:[facility] [place] Appointment Type:URO Office Visit [facility] h[facility]ive evTongxueation + Plan note Future Appointments Appointment Date:03/09/2022 09:00:00 AM Scheduled Provider: Location:[facility] [place] Appointment Type:URO Nurse Visit Appointment Date:04/15/2022 09:00:00 AM Scheduled Provider: Location:[facility] Appointment Type:URO Nurse Visit Appointment Date:09/21/2022 09:45:00 AM Scheduled Provider:[facility]el [facility]ITNEY MD [facility] Office Visit Diagnostic Tests Pending * Urine Culture [facility]22 [facility] Future Appointments Appointment Date:04/15/2022 09:00:00 AM Scheduled Provider: Location:[facility] Appointment Type:URO Nurse Visit Appointment Date:09/21/2022 09:45:00 AM Scheduled Provider:Lionel WHITNEY MD [facility] Type:[facility]O Office Visit [facility] evaluation + Plan note Future Appointments Appointment Date:07/20/2022 10:00:00 AM Scheduled Provider: [facility] Type:URO Nurse Visit Appointment Date:08/17/2022 10:00:00 AM Scheduled Provider: [facility] Type:URO Nurse Visit Appointment Date:09/21/2022 09:45:00 AM Scheduled Provider:Lionel WHITNEY MD [facility] Type:URO Office Visit Diagnostic Tests Pending * UroVysion FISH ([facility]) 07/07/22 [facility] Future Appointments Appointment Date:08/17/2022 10:00:00 AM Scheduled Provider: Location:[facility] Appointment Type:URO Nurse Visit Appointment Date:09/21/2022 09:45:00 AM Scheduled Provider:Lionel WHITNEY MD [facility] Type:URO Office Visit [facility] Evaluation + Plan note Future Appointments Appointment Date:09/22/2022 02:00:00 PM Scheduled Provider: Location:[facility] Appointment Type:Urology CALL PAT FT Appointment Date:09/29/2022 11:15:00 AM Scheduled Provider: Location:[facility] Appointment Type:Urology FT [facility] evaluation + Plan note Future Appointments Appointment Date:09/22/2022 02:00:00 PM Scheduled Provider: Location:[facility] Appointment Type:Urology CALL PAT FT Appointment Date:09/29/2022 11:15:00 AM Scheduled Provider: Location:[facility] Appointment Type:Urology FT Diagnostic Tests Pending * Urine Cytology ([facility]) 09/21/22 [facility] evaluation + Plan note Future Appointments Appointment Date:10/04/2023 10:15:00 AM Scheduled Provider:Lionel WHITNEY MD Location:[facility] Appointment Type:URO Office Visit Diagnostic Tests Pending * UroVysion Fish and Urine Cyto ([facility]) 01/05/23 [facility] Future Appointments Appointment Date:10/04/2023 10:15:00 AM Scheduled Provider:Lionel WHITNEY MD Location:[facility] Appointment Type:URO Office Visit General Surgery [facility] Evaluation + Plan note Future Appointments Appointment Date:10/04/2023 10:15:00 AM Scheduled Provider:Lionel WHITNEY MD Location:[facility] Appointment Type:URO Office Visit Diagnostic Tests Pending * UroVysion Fish and Urine Cyto ([facility]) 04/27/23 [facility] Future Appointments Appointment Date:10/20/2023 12:00:00 PM Scheduled Provider: Location:[facility] Appointment Type:Urology CALL PAT FT Appointment Date:10/26/2023 10:00:00 AM Scheduled Provider: Location:[facility] Appointment Type:Urology FT Appointment Date:10/09/2024 10:15:00 AM Scheduled Provider:Lionel WHITNEY MD Location:[facility] Appointment Type:URO Office Visit Diagnostic Tests Pending * PSA Total 10/04/23 [facility] evaluation + Plan note Future Appointments Appointment Date:10/09/2024 10:15:00 AM Scheduled Provider:Lionel WHITNEY MD Location:[facility] Appointment Type:URO Office Visit Diagnostic Tests Pending * UroVysion Fish and Urine Cyto ([facility]) 10/26/23 [facility] Future Appointments Appointment Date:07/12/2024 10:30:00 AM Scheduled Provider:[facility]ITNEY MD [facility] Office Visit Appointment Date:10/09/2024 10:15:00 AM Scheduled Provider:Lionel WHITNEY MD [facility] Type:[facility]O Office Visit [facility] evaluation + Plan note Future Appointments Appointment Date:07/12/2024 10:30:00 AM Scheduled Provider:Lionel WHITNEY MD [facility] Type:URO Office Visit Appointment Date:10/09/2024 10:15:00 AM Scheduled Provider:Lionel WHITNEY MD Location:[facility] Appointment Type:URO Office Visit Diagnostic Tests Pending * Urine Cytology ([facility]) 05/22/24 [facility] Evaluation + Plan note Future Appointments Appointment Date:10/09/2024 10:15:00 AM Scheduled Provider:Lionel WHITNEY MD Location:[facility] Appointment Type:URO Office Visit [facility] evaluation noteNo assessment information available [facility] Work Phone: evaluation note* Diagnosis Onset Date Resolution Status Spinal stenosis of cervical region with radiculopathy acute Spinal stenosis of lumbar region with radiculopathy acute [facility] Work Phone: evaluation note* Diagnosis Onset Date Resolution Status Spinal stenosis of cervical region with radiculopathy acute Spinal stenosis of lumbar region with radiculopathy acute Colonization status acute COPD (chronic obstructive pulmonary disease) acute [facility] Work Phone: evaluation note* Diagnosis Unequal blood [...] changed documented in this encounter [facility] Work Phone: Evaluation note* Diagnosis Left carotid bruit Unequal blood pressure in upper extremities documented in this encounter [facility] Work Phone: Evaluation note* Diagnosis Former smoker Personal history of tobacco use, presenting hazards to health Shortness of breath documented in this encounter [facility] Work Phone: Evaluation note* Diagnosis Uncontrolled hypertension Unequal blood pressure in upper extremities Mixed hyperlipidemia Former smoker Personal history of tobacco use, presenting hazards to health Bilateral carotid artery stenosis Occlusion and stenosis of carotid artery without mention of cerebral infarction History of prostate cancer Personal history of malignant neoplasm of prostate Hx of bladder cancer Personal history of malignant neoplasm of bladder Medication course changed Chest pressure Other chest pain Shortness of breath BMI 26.0-26.9,adult documented in this encounter [facility] Work Phone: Evaluation note* Diagnosis Malignant neoplasm of urinary bladder, unspecified site (HCC)- Primary [facility]* Diagnosis Malignant neoplasm of urinary bladder, unspecified site (HCC)- Primary documented [facility] encounter [facility] note* Diagnosis Malignant neoplasm of urinary bladder, unspecified site (HCC)- Primary documented in this encounter [facility] note* Diagnosis Malignant neoplasm of urinary bladder, unspecified site (HCC)- Primary documented in this encounter [facility] note* Diagnosis Malignant neoplasm of urinary bladder, unspecified site (HCC)- Primary documented in this encounter [facility] note* Diagnosis Malignant neoplasm of urinary bladder, unspecified site (HCC)- Primary documented in this encounter [facility] general Narrative - Reported* Type Description Date [...] KNEE SCOPE Surgical History L shoulder NAE -[facility] 2016 Hospitalization History FLU X2-3 DAYS Hospitalization History see surg. hx. [facility] Other Hospital course Narrative No data available for this section [facility] Hospital Discharge instructions No data available for this section [facility] progress note No data available for this section [facility] Reason for visit Narrative* Imaging (Routine) - Authorized Specialty Diagnoses / Procedures Referred By Contac t Referred To Contact Cardiology Diagnoses Left carotid bruit Unequal blood pressure in upper extremities Procedures Vascular US Carotid Artery Duplex Bilateral Cady Espinosa MD [address] [address] Phone: tel: fax: Referral ID Status Reason Start Date Expiration Date Visits Requested Visits Authorized [id number] Authorized Perform Procedure 4 05/10/2025 1 1 [facility] Work Phone: Reason for visit Narrative* CV Imaging (Routine) - Authorized Specialty Diagnoses / Procedures Referred By Kathrine t Referred To Contact Cardiology Diagnoses Former smoker Shortness of breath Procedures Transthoracic Echo Complete NC ECHO TTHRC R-T 2D W/WOM-MODE COMPL SPEC&COLR D Cady Espinosa MD [address] [address] Phone: tel: fax: Referral ID Status Reason Start Date Expiration Date Visits Requested Visits Authorized [id number] Authorized Perform Procedure 4 05/08/2025 1 1 [facility] Work Phone: Reason for visit Narrative* Baker Prior Authorization (Routine) - Authorized Specialty Diagnoses / Procedures Referred By Contac t Referred To Contact Diagnoses Malignant neoplasm of urinary bladder, unspecified site (HCC) Procedures BCG LIVE INTRAVESICAL INSTILLATION, 1 MG Norberto Andrade MD [address] [place] [address] Phone: tel: fax: Hematology/Oncology [address] [place] [address] Phone: tel: fax: Referral ID Status Reason Start Date Expiration Date V isits Requested Visits Authorized [id number] Authorized 07/26/2024 06/20/2025 1 99 [facility] Chief Complaint and Reason for [...] disease) Chief Complaint mri results from 08/27 Chief Complaint Admit Date Unknown July 06, 2024 2 :25pm Family History No Family History Records Found [...] Diagnosis 1 Cervical spondylosis (M47.812) Referral [facility] Referring Provider First Name Zoran Referring Provider Last Name Scott Referring Provider Specialty Neurologica l Surgery Referred Organization [facility] Referred Address [address] [place], [place],[address] Referred Provider Specialty Physical The rapist Referral Priority Routine Reason evaluate and tr eat for neck and back pain Diagnosis 1 Cervical spondylosis (M47.812) Diagnosis 2 Low back pain, unspe cified (M54.50) Referral Organization [facility] Referring Provider First Name Zoran Referring Provider Last Name Scott Referring Provider Specialty Neurologica l Surgery Referred Organization [facility] Referred Provider Raoul Soriano Referred Address [address], [place],[address] Referred Provider Specialty Pain Medicin e Referral [...] Team Status: Inactive Member Role Status Dates Deandre Monterroso MD Primary Care Provider Active Start: August 28, 2023 End: August 28, 2023 Esther Lowery NP-Mira Attending Provider Active Start: August 28, 2023 End: August 28, 2023 Team Status: Inactive Member Role Status Dates Deandre Monterroso MD Primary Care Provider Active Start: October 11, 2023 End: October 11, 2023 Qamar Aquino MD Attending Provider Active Sta rt: October 11, 2023 End: October 11, 2023 Team Status: Inactive Member Role Status Dates Deandre Monterroso MD Primary Care Provider Active Start: March 28, 2024 End: March 28, 2024 Zoran Chavez MD Attending Provider Active Star t: March 28, 2024 End: March 28, 2024 Spot Remover Relationship Specialty Start Date End Date Deandre Monterroso MD [address] [place] [address] PCP - General Family Medicine 05/08/24 Spot Remover Relationship Specialty [place] [address] [place] [address] PCP - General Family Medicine 05/08/24 Team Status: Inactive Member Role Status Dates Deandre Monterroso MD Primary Care Provider Active Start: July 06, 2024 End: July 06, 2024 Lionel Whitney MD Attending Provider Active St art: July 06, 2024 End: July 06, 2024 Spot Remover Relationship Specialty Start Date End Date Deandre Monterroso MD [address] [place] [address] PCP - General Family Medicine 05/08/24 Spot Remover Relationship Specialty Start Date End Date Lionel Whitney MD [address] [place] [address] Urology 1/28/25 Spot Remover Relationship Specialty Start Date End Date Lionel Whitney MD [address] [place] [address] Urology 07/18/24 Spot Remover Relationship Specialty Start Date End Date Deandre Monterroso MD [address] [place] [address] PCP - General Family Medicine 07/26/24 Lionel Whitney MD [address] [place] [address] Urology 07/18/24 Spot Remover Relationship Specialty Start Date End Date Deandre Monterroso MD [address] [place] [address] PCP - General Family Medicine 07/26/24 Lionel Whitney MD [address] [place] [address] Urology 07/18/24 Spot Remover Relationship Specialty Start Date End Date Deandre Monterroso MD [address] [place] [address] PCP - General Family Medicine 07/26/24 Lionel Whitney MD [address] [place] [address] Urology 07/18/24 Spot Remover Relationship Specialty Start Date End Date Deandre Monterroso MD [address] [place] [address] PCP - General Family Medicine 07/26/24 Lionel Whitney MD [address] [place] [address] Urology 07/18/24 Spot Remover Relationship Specialty Start Date End Date Deandre Monterroso MD [address] [place] [address] PCP - General Family Medicine 07/26/24 Lionel Whitney MD [address] [place] [address] Urology 07/18/24 Goals (unrecognized section and content) Goals may [...] and content) Reason Comments New Patient Visit Jxwulbto-Luhnrn-Cygb rtension Specialty Diagnoses / Procedures Referred By Contac t Referred To Contact Diagnoses Uncontrolled hypertension Shortness of breath Procedures ECG 12 Lead Cady Espinosa MD [address] [facility] [address] [place] [address] Phone: tel: fax: Referral ID Status Reason Start Date Expiration Date V isits Requested Visits Authorized [id number] Authorized 05/08/2024 05/08/2025 1 1 Reason Comments Follow-up 8w Specialty Diagnoses / Procedures Referred By Kathrine t Referred To Contact Cardiology Diagnoses Uncontrolled hypertension Procedures Follow Up In Cardiology Cady Espinosa MD [address] [address] Phone: tel: fax: Cady Espinosa MD [address] [address] Phone: tel: fax: Referral ID Status Reason Start Date Expiration Date V isits Requested Visits Authorized [id number] Authorized 05/08/2024 05/08/2025 1 1 Reason Comments Bladder Cancer Consult Reason Comments First Time Treatment Education Reason Comments Benefits Investigation Good Day Mary,I am your Financial Navigator, Esther. I wanted to reach out and introduce myself. I welcome the opportunity to meet with you as I can answer questions related to your health plan and any expected out of pocket costs while you are in treatment.You will also find a survey attached to this message that can help me better serve your financial needs. You can complete this at your earliest convenience. Please feel free to stop in or call [phone] for any questions you may have. Reason Comments Bladder Cancer (unrecognized sect ion and content) No Status Records FoundNo Status Records FoundNo Status Records FoundNo Status Records FoundNo Status Records FoundNo Status Records FoundNo Status Records FoundNo Status Records FoundNo Status Records FoundNo Status Records Found INFORMATION SOURCE (unrecogn ized section and content) DATE CREATED AUTHOR 11/27/2022 [facility] DATE CREATED AUTHOR AUTHOR'S ORGANIZ ATION 10/01/2023 [facility] DATE CREATED AUTHOR AUTHOR'S ORGANIZ ATION 05/23/2024 [facility] [email or web address] [facility] DATE CREATED AUTHOR AUTHOR'S ORGANIZ ATION [facility]/01[facility]2024 [facility] DATE CREATED AUTHOR AUTHOR'S ORGANIZ ATION 06/19/2024 [facility] DATE CREATED AUTHOR AUTHOR'S ORGANIZ ATION 07/12/2024 [facility] DATE CREATED AUTHOR AUTHOR'S ORGANIZ ATION 07/12/2024 [facility] DATE CREATED AUTHOR AUTHOR'S ORGANIZ ATION 07/13/2024 [facility] DATE CREATED AUTHOR AUTHOR'S ORGANIZ ATION 07/21/2024 [facility] DATE CREATED AUTHOR AUTHOR'S ORGANIZ ATION 08/03/2024 [facility] Source Comments (unrecognize d section and content) In the event this informatio n is protected by the Federal Confidentiality of Alcohol and Drug Abuse Patient Records regulations: The Federal rules restrict any use of the information to criminally investigate or prosecute any alcohol or drug abuse patient.[facility] the event this information is protected by the Federal Confidentiality of Alcohol and Drug Abuse Patient Records regulations: The Federal rules restrict any use of the information to criminally investigate or prosecute any alcohol or drug abuse patient.[facility] Center[facility] the event this information is protected by the Federal Confidentiality of Alcohol and Drug Abuse Patient Records regulations: The Federal rules restrict any use of the information to criminally investigate or prosecute any alcohol or drug abuse patient.[facility] Center[facility] the event this information is protected by the Federal Confidentiality of Alcohol and Drug Abuse Patient Records regulations: The Federal rules restrict any use of the information to criminally investigate or prosecute any alcohol or drug abuse patient.[facility] Center[facility] the event this information is protected by the Federal Confidentiality of Alcohol and Drug Abuse Patient Records regulations: The Federal rules restrict any use of the information to criminally investigate or prosecute any alcohol or drug abuse patient.[facility] Center[facility] the event this information is protected by the Federal Confidentiality of Alcohol and Drug Abuse Patient Records regulations: The Federal rules restrict any use of the information to criminally investigate or prosecute any alcohol or drug abuse patient.[facility] CenterIn the event this information is protected by the Federal Confidentiality of Alcohol and Drug Abuse Patient Records regulations: The Federal rules restrict any use of the information to criminally investigate or prosecute any alcohol or drug abuse patient.[facility] CenterIn the event this information is protected by the Federal Confidentiality of Alcohol and Drug Abuse Patient Records regulations: The Federal rules restrict any use of the information to criminally investigate or prosecute any alcohol or drug abuse patient.[facility] FOR RECORDS PERTAINING TO PATIENTS [...] BE BASED ON THE PRIMARY CLINICAL RECORDS. [facility] [employer] [facility]. provides no warranty or guarantee of the accuracy or completeness of information in this document.
[2024-08-07 10:22] VITALS: BP 164/70; BP 165/67; PULSE 70; PULSE 76; O2SAT 95; O2SAT 96
[2024-08-07] MEDS: LIDOCAINE HCL 2% 400 MG/20 ML MDV INJ (10:25)
[2024-08-07] MEDS: BUPIVACAINE HCL 0.25% PF 25 MG/10 ML VIAL 2 ML INJ (10:25)
[2024-08-07] MEDS: IOHEXOL 240 MG/ML - 10 ML VIAL 12 MG INJ (10:25)
[2024-08-07] MEDS: METHYLPREDNISOLONE ACETATE 40 MG/ML VIAL INJ (10:25)
--- NOTE | 2024-08-07 10:25 | W.PM.PROCNOT ---
Date of procedure: 08/07/24 Pre-op diagnosis: Pain due to left hip osteoarthritis Post-op diagnosis: same as pre-op Procedure: Procedure: Left hip injection Medications: Bupivacaine 0.25% 4cc, depomedrol 40mg I explained the details of the procedure to the patient including the risks, benefits and alternatives. We had an informed discussion and the patient verbalized understanding and signed the consent form. All questions were answered appropriately.? A time out was performed.? After obtaining a comfortable supine position, the skin overlying the hip, subtrochanteric region, and joint space were prepped with alcohol. A sterile syringe containing the above medication was attached to a 25 guage, 3.5 inch spinal needle under strict aseptic technique. X ray was used to identify the joint space and the femoral neck on the left side.? The needle was than advanced through the subcutaneous tissue after local injection of 1% lidocaine.? The contents of the syringe were gently injected without any resistance into the joint space after contrast (isovue) outlined the appropriate area. The needle was removed and pressure was applied to the injection site to decrease the incidence of ecchymosis and hematoma formation.? A sterile bandage was applied. Anesthesia: Local Surgeon: Tamiko Landa Pathology: none sent Condition: stable Disposition: no change
== END 2024-08-07 10:30 | disposition home or self-care (01) ==
PROVIDERS: PCP Family Medicine; Visit Provider Anesthesiology
DX: M16.12 Unilateral primary osteoarthritis, left hip (principal)
CPT/HCPCS: 20610; 77002; J0665; J1010; Q9966

== ENCOUNTER 2024-08-17 09:16 | Outpatient (REF) | payer MEDICARE, SELFPAY ==
--- OUTSIDE RECORDS SUMMARY | 2024-08-17 09:23 | XMS_ITS | CCD ---
Author Organization [facility] Care Team Providers Care Assistant Community Director Name Role Phone MD Deandre Monterroso Primary Care Provider [phone] MD Lionel Whitney Attending Provider Deandre Monterroso Primary Care Physician [phone] Leidy Plummer Unavailable Unavailable MD Deandre Monterroso Primary Care Provider [phone] MD Lionel Whitney Attending Provider Zoran Chavez [...] Care Provider MD Zoran Chavez Attending Provider MD Deandre Monterroso Primary Care Provider LIDA Lowery Attending Provider VASU GALEANO Attending Unavailable KELLY ORTIZ Attending Unavailable MD Deandre Monterroso Primary Care Provider LIDA Lowery Attending Provider Deandre Monterroso MD Primary Care Provider Lionel WHITNEY Attending Unavailable Lionel WHITNEY Attending Unavailable Lionel WHITNEY Admitting Unavailable FAVIAN ESPINOSAA Referring Unavailable DEANDRE MONTERROSO Primary Care Unavailable FAVIAN ESPINOSAA Referring Unavailable DEANDRE MONTERROSO Primary Care Unavailable Deandre Monterroso MD Primary Care Provider Lionel Whitney MD Attending Provider Lionel Whitney Admitting Unavailable Lionel Whitney Attending Unavailable Deandre Monterroso Primary Care Unavailable Deandre Monterroso Primary Care Unavailable Esther Lowery Admitting Unavailable Esther Lowery Attending Unavailable Deandre Monterroso Primary Care Unavailable Esther Lowery Admitting Unavailable Esther Lowery Attending Unavailable Lionel Whitney MD Unavailable [phone] CADY ESPINOSA Attending Unavailable DEANDRE MONTERROSO Primary Care Unavailable KAISER, CADY Referring Unavailable FAVIAN ESPINOSAA Attending Unavailable K[facility]ISER, CADY Referring Unavailable DEANDRE MONTERROSO Primary Care Unavailable Deandre Monterroso MD Primary Care Provider [phone] Aftab ZELAYA, Ingrid [place] Unavailable [phone] Norberto Andrade MD Unavailable [phone] VENNEPUREDDIONICIO, NORBERTO Attending Unavailable LIONEL WHITNEY Referring Unavailable VENNEPUREDDY, NORBERTO Referring Unavailable DEANDRE MONTERROSO Primary Care Unavailable VENNEPUREDDY, NORBERTO Referring Unavailable DEANDRE MONTERROSO Primary Care Unavailable VENNEPUREDDIONICIO, NORBERTO Attending Unavailable VENNEPUREDDIONICIO, NORBERTO Referring Unavailable DEANDRE MONTERROSO Primary Care Unavailable VENNEPUREDDY, NORBERTO Referring Unavailable HOYDEANDRE M Primary Care Unavailable VENNEPUREDDY, NORBERTO Referring Unavailable HOY, DEANDRE M Primary Care Unavailable VENNEPUREDDY, NORBERTO Referring Unavailable HOY, DEANDRE M Primary Care Unavailable VENNEPUREDDY, NORBERTO Referring Unavailable HOY, DEANDRE M Primary Care Unavailable Giedraitis , Andrius Kilgore Attending Unavailable Giedraitis MD, Andrius Magui Attending Unavailable Giedraitis MD, Andrius Bennyyteli Attending Unavailable Giedraitis MD, Andrius Bennyyteli Attending Unavailable Giedraitis MD, Andrius Bennyyteli Attending Unavailable Giedraitis , Andrius Bennyyteli Attending Unavailable WHITNEY, Lionel R Admitting Unavailable WHITNEY, Lionel R Attending Unavailable WHITNEY, Lionel R Referring Unavailable WHITNEY, Lionel R Attending Unavailable WHITNEY, Lionel R Attending Unavailable WHITNEY, Lionel R Attending Unavailable WHITNEY, Lionel R Attending Unavailable WHITNEY, Lionel R Admitting Unavailable WHITNEY, Lionel R Attending Unavailable WHITNEY, Lionel R Referring Unavailable Allergies Allergy Classification Reported Allergen(s) Allergy Type Date of Onset Reaction(s) Facility (10 sources) Acetaminophen; Translations: [acetaminophen] Drug Allergy 0 Itching, Itching agitated, Itching agitated, aggitation [facility] (20 sources) Codeine; Translations: [Codeine] Drug Allergy 4 rash, Agitation [facility] (12 sources) oxyCODONE; Translations: [oxycodone] Drug Allergy 0 Itching, agitated, Itching, agitated, aggitation [facility] (16 sources) Acetaminophen / oxyCODONE; Translations: [acetaminophen-oxyc odone] Drug Allergy aggitation [facility] James Comment on above: pt states this does not work for pt, pt is not allergic to vicodin (7 sources) cyclobenzaprine Drug Allergy 4 itching [facility] (7 sources) HYDROcodone Drug Allergy 4 anxiety [facility] (7 sources) tiZANidine Drug Allergy 4 hives [facility] (4 sources) Acetaminophen / HYDROcodone; Translations: [Vicodin] Drug Allergy [facility] Repository (2 sources) Acetaminophen / oxyCODONE Drug Allergy [facility] Repository (1 source) atorvastatin Drug Allergy [facility] Repository (2 sources) tiZANidine Drug Allergy [facility] Repository (2 sources) Acetaminophen / oxyCODONE; Translations: [Percocet 5/325] Drug Allergy [facility] Repository (1 source) cyclobenzaprine Drug Allergy [address] [place] [address] Repository (1 source) HYDROcodone Drug Allergy [address] [place] [address] Repository (1 source) tiZANidine Drug Allergy [address] [place] [address] Repository Medications Current Medications Medication Drug Class(es) Dates Sig (Normalized) Sig (Original) acetaminophen 325 mg / HYDROcodone bitartrate 5 mg oral tablet (14 sources) Opioid Agonist Start: 08-12-2023 take 1 tablet by mouth every twenty-four hours as needed HYDROcodone-aceta minophen (NORCO) 5-325 mg per tablet Take 1 tablet by mouth at bedtime as needed. 08/12/2023 Active Start: 08-12-2023 take 1 tablet by barry th every twenty-four hours as needed HYDROcodone-acetaminophen (Munday) 5-325 mg tablet Take 1 tablet by mouth once daily as needed for severe pain (7 - 10). 08/12/2023 Active Start: 08-12-2023 Hydrocodone-Ac etaminophen 5-325 mg tablet Active 1 TAB PO August 12, 2023 12:00am Start: 02-03-2023 take 1 tablet by barry th every six hours as needed for pain acetaminophen-hydrocodone 325 mg-5 mg oral tablet 1 tab(s), [...] 2020 7:04am doxazosin 1 mg oral tablet (10 sources) alpha-Adrenergic Boogie Start: 07-17-2024 End: 07-17-2025 doxazosin (CARDURA) 1 mg tablet Take 1 mg by mouth. 07/17/2024 07/17/2025 Active enteric contrast (will be provided with radiology test) (2 sources) Start: 08-16-2024 enteric contrast (will be provided with radiology test) For CT CHESTABD/PEL W IVCON Routine order Administer, As Directed One Time Only, via Oral, Rectal, both Oral and Rectal, Enteric Tube, Stoma or Indwelling Catheter, Enteric Contrast as designated per enteric contrast guidelines 1 Each 08/16/2024 Active 30 actuat fluticasone furoate 0.1 mg/actuat / umeclidinium 0.0625 mg/actuat / vilanterol 0.025 mg/actuat dry powder inhaler (20 sources) Anticholinergic, Corticosteroid, beta2-Adrenergic Agonist Start: 02-03-2023 take 1 puff(s) by inhalation once daily fluticasone-ume clidin-vilanter (TRELEGY ELLIPTA) 100-62.5-25 mcg inhalation powder = 1 puff(s), Inhalation, Daily, Refills(s) 0 02/03/2023 Active Start: 08-07-2019 Fluticasone-Um eclidin-Vilanter (Trelegy Ellipta) 100-62.5-25 [...] take 1 puff(s) by inhalation once daily xgoycaphyhi-fypcpizke-qrgfonhb (TRELEGY ELLIPTA) 100-62.5-25 mcg inhalation powder Inhale 1 Puff as instructed once daily. Active take 1 puff(s) by inhalation in the morning Trelegy Ellipta 100-62.5-25 mcg blister with device Inhale 1 puff early in the morning.. Active hydroCHLOROthiazide 12.5 mg / lisinopril 20 mg oral tablet (18 sources) Thiazide Diuretic, Angiotensin Converting Enzyme Inhibitor Start: 05-08-2024 End: 07-17-2025 take 1 tablet by mouth once daily lisinopril-hydroCHLOROthiazide (ZESTORETIC) 20-12.5 mg per tablet Take 1 tablet by mouth once daily. 07/17/2024 07/17/2025 Active iv contrast (will be provided with radiology test) (2 sources) Start: 08-16-2024 iv contrast (will be provide d with radiology test) CT Chest ABD/PEL-Inject, intravenously, once for 1 dose.No IV access, insert saline lock prior to the beginning of sedation, infusion, injection of imaging exam. Discontinue saline lock post exam. If Pt. has a central line or IVAD, may access for administration according to line specific nursing protocol. Once exam is complete flush line and de-access according to line specific nursing protocol in the CT contrast administration guidelines link. 1 Each 08/16/2024 Active liothyronine (20 sources) l-Triiodothyr onine Start: [...] 07/17/2025 Active methocarbamol 500 mg oral tablet (18 sources) Muscle Relaxant Start: 04-21-2023 take 1 [...] mv-min/folic/K1/lyc open/lutein (MEN 50 PLUS MULTIVITAMIN ORAL) (11 sources) take 1 tablet by mouth once [...] period., # 30 tab(s), Refills(s) 3, Pharmacy: [id number], 170, cm, 02/24/22 10:53:00 EDT, Height/Length Dosing, 78, kg, 02/24/22 10:53:00 EDT, Weight Dosing Start Date: 07/05/22 Status: Ordered Start: 09-19-2021 sildenafil 100 mg Tab 100 mg = 1 tab(s), Oral, Daily, Take 1 pill 30 minutes prior to sexual relations, # 30 tab(s), Refills(s) 3, Pharmacy: [id number], 170, cm, 09/19/21 [...] 50 mg in NaCl 0.9% 50 mL (3 sources) Start: 08-16-2024 End: 08-16-2024 50 mg, INTRAVESICAL, ONCE, 1 dose, On Wed08/16/24 at 1400, Instill into bladder via catheter and retain for 120 minutes, followed by bladder drainage. PROTECT FROM LIGHT Hazardous Chemotherapy Drug: Use appropriate PPE. Protect from Light. Start: 08-09-2024 End: 08-09-2024 50 mg, INTRAVESICAL, ONCE, 1 dose, On Wed08/09/24 at 1430, Instill into bladder via catheter and retain for 120 minutes, followed by bladder drainage. PROTECT FROM LIGHT Hazardous Chemotherapy Drug: Use appropriate PPE. Protect from Light. Start: 08-02-2024 End: 08-02-2024 50 mg, INTRAVESICAL, [...] procedure, # 2 tab(s), Refills(s) 0, Pharmacy: [facility] #[id number], 170, cm, 10/26/23 11:14:00 EDT, Height/Length Dosing, 84, kg, 10/04/23 10:36:00 EDT, Weight Dosing Start Date: 04/13/24 Status: Ordered Start: 01-20-2023 take 1 tablet by barry once daily Cipro 500 mg Tab 500 mg = 1 tab(s), Oral, Daily, take one tab day before procedure and one tab after procedure, # 2 tab(s), Refills(s) 0, Pharmacy: [facility]/pharmacy #[id number], 170, cm, 01/20/23 10:45:00 EDT, Height/Length Dosing, 83.5, kg, 01/20/23 10:45:00 EDT, Weight Dosing Start Date: 01/20/23 Status: Ordered Start: 12-31-2022 take 1 tablet by barry once daily Cipro 500 mg Tab 500 mg = 1 tab(s), Oral, Daily, Take 1 tablet the day before the procedure and 1 tablet after the procedure, # 6 tab(s), Refills(s) 0, Pharmacy: [facility]/pharmacy #[id number], 170, cm, 09/22/22 12:23:00 EDT, Height/Length Dosing, 78, kg, 02/24/22 10:53:00 EDT, W... Start Date: 12/31/22 Status: Ordered Start: 07-02-2022 take 1 tablet by barry once daily Cipro 500 mg Tab 500 mg = 1 tab(s), Oral, Daily, Take 1 tablet the day before the procedure and 1 tablet after the procedure, # 6 tab(s), Refills(s) 0, Pharmacy: [facility]/pharmacy #[id number], 170, cm, 02/24/22 10:53:00 [...] procedure, # 2 tab(s), Refills(s) 0, [id number], cm, 11/05/21 11:37:00 EDT, [...] daily as needed for Muscle Spasm 40 10 April 18, 2020 11:00pm October 17, 2021 11:30am doxycycline hyclate 100 mg oral capsule (1 source) Tetracycline-class Drug Start: 04-12-2023 take 1 capsule by mouth twice daily doxycycline hyclate 100 mg Cap 100 mg = 1 cap(s), Oral, BID, Take 1 capsule the day before the procedure and 1 capsule after the procedure, # 2 cap(s), Refills(s) 0, Pharmacy: [facility]/pharmacy #[id number], 188, cm, 02/10/23 14:22:00 [...] completed) lidocaine hydrochloride 0.02 mg/mg topical gel (8 sources) Antiarrhythmic, Amide Local Anesthetic Start: 08-16-2024 End: 08-16-2024 11 mL, OTHER, ONCE, 1 dose, On Wed08/16/24 at 1400, Intravesical administration Start: 08-09-2024 End: 08-09-2024 11 mL, OTHER, ONCE, 1 dose, On Wed08/09/24 at 1430, Intravesical administration Start: 08-02-2024 End: 08-02-2024 11 mL, OTHER, [...] d one radical prostectomy at [facility] Cancer of prostate (20 sources) Personal [...] List clean-u p per request of Phys. 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 therapy; Translations: [OTH GROUP HOME CURRENT DRUG THERAPY] Onset: 3 Episodic Other aftercare (6 sources) Treatment changed; Translations: [Other terminal press operator (current) drug therapy] Onset: 4 05-08-2024 Episodic Other aftercare (2 sources) Taking high risk medication; Translations: [Other terminal press operator (current) drug therapy] 08-09-2024 Episodic Other and unspecified benign neoplasm (9 [...] Test Name Value Interpretation Reference Range Facility UA DIP, URINE (POC)on 2024 BILIRUBIN UA (POCT) Negative Negative [facility] CLARITY UA (POCT) Clear [facility] COLOR UA (POCT) Yellow [facility] GLUCOSE UA (POCT) Negative Negative mg/dL [facility] Hemoglobin Ql (U) Negative Negative [facility] Interpretation and review of laboratory results Abnormal [facility] KETONE UA (POCT) Negative Negative mg/dL [facility] LEUKOCYTES UA (POCT) Trace Abnormal Negative [facility] NITRITE UA (POCT) Negative Negative [facility] PH UA (POCT) 5.5 4.5 - 8.0 [facility] Protein Ql (U) Negative Negative mg/dL [facility] SPECIFIC GRAVITY UA (POCT) 1.02 1.005 - 1.030 [facility] UROBILINOGEN UA (POCT) 0.2 Ann l E.U./dL [facility] Location:[facility], [address] [place] [address] [place], [place], [address] [facility] POINT OF CARE [facility] Reminderson 08-11-2024 Reminders Reminders - From: Loretta Simons To: EU - Recalls Whitney; Sent: 07/12/2024 13:52:33 EST Show up: 08/07/2024 13:52:00 EST Subject: cysto after BCG tx Due Date/Time: 08/18/2024 13:52:00 EST Reminder/Recall Patient will need cysto sched 1 month after BCG tx in August 2024 Spoke to Dorota at [facility] cancer center. Pt sched for BCG tx 08/02/24- 09/13/24 last tx. Pt will get Cysto in september.LG Normal [facility] CNNURSEon 08-09-2024 CNNURSE Nurse Visit (HEMASA) MARY DIAZ ([id number]) 1950 [facility] Date Time Provider Department 08/09/24 2:00 PM [facility] NURSE ENRIQUE TREVINO HEMFELICIANO During your visit today, we recorded the following information about you: Cydney Honeycutt MA 08/09/2024 1:50 PM Signed Back office UA test performed. Results entered in [employer] and doctor notified. Cydney Honeycutt MA Referring Provider: NORBERTO ANDRADE [[id number]] Allergies As of Date: 08/09/2024 Noted Allergy Reaction CODEINE 03/30/2017 2 - Rash Comments: Agitation, Doesn't work Date Reviewed: 08/02/2024 Reviewed by: Santosh Del Rio MA - Fully Assessed Primary Visit Diagnosis:High risk medication use [Z79.899] Order(s):UA DIP, URINE (POC) [[id number]] Order #: [id number]. #:[id number] Prescriptions as of 08/09/2024 - doxazosin (CARDURA) 1 mg tablet Take [...] once daily. Problem List As Of Date 08/09/2024 Noted Resolved Bladder cancer (HCC) [C67.9] 07/26/2024 Encounter Status:Closed by HONEYCUTTSeptember on 08/09/24 Normal [facility] UA DIP, URINE (POC)on 2024 BILIRUBIN UA (POCT) Negative Negative [facility] CLARITY UA (POCT) Clear [facility] COLOR UA (POCT) Yellow [facility] GLUCOSE UA (POCT) Negative Negative mg/dL [facility] Hemoglobin Ql (U) Negative Negative [facility] Interpretation and review of laboratory results Abnormal [facility] KETONE UA (POCT) Negative Negative mg/dL [facility] LEUKOCYTES UA (POCT) Trace Abnormal Negative [facility] NITRITE UA (POCT) Negative Negative [facility] PH UA (POCT) 5.5 4.5 - 8.0 [facility] Protein Ql (U) Negative Negative mg/dL [facility] SPECIFIC GRAVITY UA (POCT) 1.015 1.005 - 1.030 [facility] UROBILINOGEN UA (POCT) 0.2 Ann l E.U./dL [facility] Location:[facility], [address] [place] [address] , [place], [place], [address] [facility] POINT OF CARE [facility] Kyara 08-07-2024 CNPN Telephone (HEMASA) MARY DIAZ ([id number]) 1950 [facility] Date Time Provider Department 08/07/24 INGRID UGALDE HEMASA During your visit today, we recorded the following information about you: Ingrid Ugalde RN 08/07/2024 1:38 PM Signed CYCLE 1/DAY 1 POST TREATMENT CALL Today's date: August 07, 2024 Treatment Regimen: BCG C1D1 Date: 08/02/24 Called patient to follow-up on symptom management. Spoke with patient Pt states he did well with first BCG treatment. Denies any pain, burning, urgency, frequency, or blood in urine. States he tolerated it well and denies needs or concerns at this time. Reinforced CURRENT treatment education based on current and anticipated symptoms. Discussed port/line care and patient verbalizes understanding: Not Applicable Patient instructed to contact office or after hours Hematology/Oncology fellow for: temperature >= 100.4; questions or concerns. Patient verbalized understanding of when to seek medical attention and after hours number protocol. Ingrid Ugalde RN Allergies As of Date: 08/07/2024 Noted Allergy Reaction CODEINE 03/30/2017 2 - Rash Comments: Agitation, Doesn't work Date Reviewed: 08/02/2024 Reviewed by: Santosh Del Rio MA - Fully Assessed Reason for Visit: Care Coordination [3498] Cmt: C1D1 treatment follow up call Prescriptions as of 08/07/2024 - doxazosin (CARDURA) 1 mg tablet Take [...] once daily. Problem List As Of Date 08/07/2024 Noted Resolved Bladder cancer (HCC) [C67.9] 07/26/2024 Encounter Status:Closed by INGRID UGALDE on 08/07/24 [facility] 08-02-2024 [facility] Nurse Visit (HEMASA) MARY DIAZ ([id number]) 1950 [facility] Date Time Provider Department 08/02/24 9:00 AM [facility] NURSE ENRIQUE TAY During your visit today, we recorded the following information about you: Santosh Del Rio MA 08/02/2024 8:51 AM Signed UA performed as ordered. Santosh Del Rio MA Referring Provider: NORBERTO ANDRADE [[id number]] Allergies As of Date: 08/02/2024 Noted Allergy Reaction CODEINE 03/30/2017 2 - Rash Comments: Agitation, Doesn't work Date Reviewed: 08/02/2024 Reviewed by: Santosh Del Rio MA - Fully Assessed Primary Visit Diagnosis:Malignant neoplasm of urinary bladder, unspecified site (HCC) [C67.9] Order(s):UA DIP, URINE (POC) [[id number]] Order #: [id number]. #:[id number] Prescriptions as of 08/02/2024 - doxazosin (CARDURA) [...] Status:Closed by SANTOSH DEL RIO on 08/02/24 [facility] CNOVSPon 08-02-2024 CNOVSP Visit (SP) Office (HEMASA) MARY DIAZ ([id number]) 1950 [facility] Date Time Provider Department 08/02/24 8:30 AM NORBERTO ANDRADE During your visit today, we recorded the following information about you: Temperature Pulse Respiration Blood pressure 97.5 degrees 80/minute 18/minute 131/79 Weight 88.5 kg Norberto Andrade MD 08/02/2024 9:15 AM Signed PATIENT NAME: Mary Diaz CLINIC NO.: [id number] ATTENDING PHYSICIAN: Norberto Andrade MD DATE OF SERVICE: 08/02/[address] 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 Urology recommended [...] Eyes: Anic (more content not included)... Normal [facility] UA DIP, URINE (POC)on 2024 BILIRUBIN UA (POCT) Negative Negative [facility] CLARITY UA (POCT) Clear [facility] COLOR UA (POCT) Yellow [facility] GLUCOSE UA (POCT) Negative Negative mg/dL [facility] Hemoglobin Ql (U) Small Abnormal Negative [facility] Interpretation and review of laboratory results Abnormal [facility] KETONE UA (POCT) Negative Negative mg/dL [facility] LEUKOCYTES UA (POCT) Small Abnormal Negative [facility] NITRITE UA (POCT) Negative Negative [facility] PH UA (POCT) 5.5 4.5 - 8.0 [facility] Protein Ql (U) Trace Abnormal Negative mg/dL [facility] SPECIFIC GRAVITY UA (POCT) 1.02 1.005 - 1.030 [facility] UROBILINOGEN UA (POCT) 0.2 Ann l E.U./dL [facility] Location:[facility], [address] [place] [address] , [place], [place], [id number] [place] [address] POINT OF CARE [facility] Kyara 08-01-2024 OCN Telephone (STACIE) MARY DIAZ ([id number]) 1950 [facility] Date Time Provider Department 08/01/24 FINANCIAL NAVIGATOR [...] max is reached. Patient stated understanding. Reference #[id number]. There is currently no Bladder funding available, but will add him to my wait list. MyCost completed over the phone. He was very appreciative of my phone call. Allergies As of Date: 08/01/2024 Noted Allergy Reaction CODEINE 03/30/2017 2 - Rash Comments: Agitation, Doesn't work Date Reviewed: 07/19/2024 Reviewed by: Suzanna Waters MA - Fully Assessed Reason for Visit: Benefits Investigation [[id number]] Cmt: Andrew Soler, I am your Financial Navigator, Esther. I [...] feel free to stop in or call [phone] for any questions you may have. Prescriptions [...] Status:Closed by ESTHER PATTERSON on 08/01/24 Normal [facility] CBC W Auto Differential pane l (Bld)on 07-26-2024 Basophils (Bld) [#/Vol] 10*3/uL Normal <0.11 C [facility] Comment on above: Order Comment: Speci men Type: BLOOD SPECIMENOrdering Facility: [facility] Address: [address] [place] [address] Performed By: #### 5 7021-8 ####[facility] LABCLIA [id number] [place] [address] Basophils/100 WBC (Bld) 0.3 % Normal [facility] Comment on above: Order Comment: Speci men Type: BLOOD SPECIMENOrdering Facility: [facility] Address: [address] [place] [address] Performed By: #### 5 7021-8 ####[facility] LABCLIA [id number] [place] [address] Differential cell count method Nom (Bld) Auto Normal [facility] Comment on above: Order Comment: Speci men Type: BLOOD SPECIMENOrdering Facility: [facility] Address: [address] [place] [address] Performed By: #### 5 7021-8 ####[facility] LABCLIA [id number] [place] [address] Eosinophils (Bld) [#/Vol] 0.13 10*3/uL Normal <0.46 [facility] Comment on above: Order Comment: Speci men Type: BLOOD SPECIMENOrdering Facility: [facility] Address: [address] [place] [address] Performed By: #### 5 7021-8 ####[facility] LABCLIA [id number] [place] [address] Eosinophils/100 WBC (Bld) 1.9 % Normal [facility] Comment on above: Order Comment: Speci men Type: BLOOD SPECIMENOrdering Facility: [facility] Address: [address] [place] [address] Performed By: #### 5 7021-8 ####[facility] LABCLIA [id number] [place] [address] Erythrocyte distribution width (RBC) [Ratio] 13.9 % Normal 11.5-15.0 [facility] Comment on above: Order Comment: Speci men Type: BLOOD SPECIMENOrdering Facility: [facility] Address: [address] [place] [address] Performed By: #### 5 7021-8 ####[facility] LABCLIA [id number] [place] [address] Hematocrit (Bld) [Volume fraction] 36.5 % Low 39.0-51.0 [facility] Comment on above: Order Comment: Speci men Type: BLOOD SPECIMENOrdering Facility: [facility] Address: [address] [place] [address] Performed By: #### 5 7021-8 ####[facility] LABCLIA [id number] [place] [address] Hemoglobin (Bld) [Mass/Vol] 12.4 g/dL Low 13.0-17.0 [facility] Comment on above: Order Comment: Speci men Type: BLOOD SPECIMENOrdering Facility: [facility] Address: [address] [place] [address] Performed By: #### 5 7021-8 ####[facility] LABCLIA [id number] [place] [address] Immature granulocytes (Bld) [#/Vol] 0.05 10*3/uL Normal <0.10 [facility] Comment on above: Order Comment: Speci men Type: BLOOD SPECIMENOrdering Facility: [facility] Address: [address] [place] [address] Performed By: #### 5 7021-8 ####[facility] LABCLIA [id number] [place] [address] Immature granulocytes/100 WBC (Bld) 0.7 % Normal [facility] Comment on above: Order Comment: Speci men Type: BLOOD SPECIMENOrdering Facility: [facility] Address: [address] [place] [address] Performed By: #### 5 7021-8 ####[facility] LABCLIA [id number] [place] [address] Lymphocytes (Bld) [#/Vol] 1.40 10*3/uL Normal 1.00-4.00 [facility] Comment on above: Order Comment: Speci men Type: BLOOD SPECIMENOrdering Facility: [facility] Address: [address] [place] [address] Performed By: #### 5 7021-8 ####[facility] LABIA [id number] [place] [address] Lymphocytes/100 WBC (Bld) 20.7 % Normal [facility] Comment on above: Order Comment: Speci men Type: BLOOD SPECIMENOrdering Facility: [facility] Address: [address] [place] [address] Performed By: #### 5 7021-8 ####[facility] LABCLIA [id number] [place] [address] MCH (RBC) [Entitic mass] 31.2 pg Normal 26.0-34.0 [facility] Comment on above: Order Comment: Speci men Type: BLOOD SPECIMENOrdering Facility: [facility] Address: [address] [place] [address] Performed By: #### 5 7021-8 ####[facility] LABCLIA [id number] [place] [address] MCHC (RBC) [Mass/Vol] 34.0 g/dL Normal 30.5-36.0 [facility] Comment on above: Order Comment: Speci men Type: BLOOD SPECIMENOrdering Facility: [facility] Address: [address] [place] [address] Performed By: #### 5 7021-8 ####[facility] LABCLIA [id number] [place] [address] MCV (RBC) [Entitic vol] 91.7 fL Normal 80.0-100.0 C [facility] Comment on above: Order Comment: Speci men Type: BLOOD SPECIMENOrdering Facility: [facility] Address: [address] [place] [address] Performed By: #### 5 7021-8 ####[facility] LABCLIA [id number] [place] [address] Monocytes (Bld) [#/Vol] 0.62 10*3/uL Normal <0.87 [facility] Comment on above: Order Comment: Speci men Type: BLOOD SPECIMENOrdering Facility: [facility] Address: [address] [place] [address] Performed By: #### 5 7021-8 ####[facility] LABCLIA [id number] [place] [address] Monocytes/100 WBC (Bld) 9.2 % Normal C [facility] Comment on above: Order Comment: Speci men Type: BLOOD SPECIMENOrdering Facility: [facility] Address: [address] [place] [address] Performed By: #### 5 7021-8 ####[facility] LABCLIA [id number] [place] [address] Neutrophils (Bld) [#/Vol] 4.54 10*3/uL Normal 1.45-7.50 [facility] Comment on above: Order Comment: Speci men Type: BLOOD SPECIMENOrdering Facility: [facility] Address: [address] [place] [address] Performed By: #### 5 7021-8 ####[facility] LABCLIA [id number] [place] [address] Neutrophils/100 WBC (Bld) 67.2 % Normal [facility] Comment on above: Order Comment: Speci men Type: BLOOD SPECIMENOrdering Facility: [facility] Address: [address] [place] [address] Performed By: #### 5 7021-8 ####[facility] LABCLIA [id number] [place] [address] Nucleated RBC (Bld) [#/Vol] 10*3/uL Normal <0.01 [facility] Comment on above: Order Comment: Speci men Type: BLOOD SPECIMENOrdering Facility: [facility] Address: [address] [place] [address] Performed By: #### 5 7021-8 ####[facility] LABCLIA [id number] [place] [address] Nucleated RBC/100 WBC (Bld) [Ratio] 0.0 /100 WBC Normal [facility] Comment on above: Order Comment: Speci men Type: BLOOD SPECIMENOrdering Facility: [facility] Address: [address] [place] [address] Performed By: #### 5 7021-8 ####[facility] LABIA [id number] [place] [address] Platelet mean volume (Bld) [Entitic vol] 9.4 fL Normal 9.0-12.7 [facility] Comment on above: Order Comment: Speci men Type: BLOOD SPECIMENOrdering Facility: [facility] Address: [address] [place] [address] Performed By: #### 5 7021-8 ####[facility] LABCLIA [id number] [place] [address] Platelets (Bld) [#/Vol] 209 10*3/uL Normal 150-400 [facility] Comment on above: Order Comment: Speci men Type: BLOOD SPECIMENOrdering Facility: [facility] Address: [address] [place] [address] Performed By: #### 5 7021-8 ####[facility] LABCLIA [id number] [place] [address] RBC (Bld) [#/Vol] 3.98 10*6/uL Low 4.20-6.00 [facility] Comment on above: Order Comment: Speci men Type: BLOOD SPECIMENOrdering Facility: [facility] Address: [address] [place] [address] Performed By: #### 5 7021-8 ####[facility] LABCLIA [id number] [place] [address] WBC (Bld) [#/Vol] 6.76 10*3/uL Normal 3.70-11.00 [facility] Comment on above: Order Comment: Speci men Type: BLOOD SPECIMENOrdering Facility: [facility] Address: [address] [place] [address] Performed By: #### 5 7021-8 ####[facility] LABCLIA [id number] [place] [address] CNNUR[facility]on 07-26-2024 [facility] ([facility] MRAY DIAZ ([id number]) 1950 [facility] Date Time Provider Department 07/26/24 11:00 AM INGRID UGALDE HEMASA During your visit today, we recorded the [...] minutes REFERRAL (RECOMMENDATION): N/A Ingrid Ugalde RN 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 YES Confirmed date and time for chemotherapy ? YES Other appointments (labs, imaging) discussed? 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 Normal [facility] Comprehensive metabolic 2000 panelon 07-26-2024 Albumin [Mass/Vol] 4.2 g/dL Normal 3.9-4.9 [facility] Comment on above: Order Comment: Speci men Type: BLOOD SPECIMENOrdering Facility: [facility] Address: [address] [place] [address] Performed By: #### 2 4323-8 ####[facility] LABCLIA [id number] [place] [address] ALP [Catalytic activity/Vol] 55 U/L Normal 38-113 [facility] Comment on above: Order Comment: Speci men Type: BLOOD SPECIMENOrdering Facility: [facility] Address: [address] [place] [address] Performed By: #### 2 4323-8 ####[facility] LABCLIA [id number] [place] [address] ALT [Catalytic activity/Vol] 17 U/L Normal 10-54 [facility] Comment on above: Order Comment: Speci men Type: BLOOD SPECIMENOrdering Facility: [facility] Address: [address] [place], [place] [address] Performed By: #### 2 4323-8 ####[facility] LABCLIA [id number] [place] [address] Anion gap [Moles/Vol] 8 mmol/L Normal 8-15 [facility] Comment on above: Order Comment: Speci men Type: BLOOD SPECIMENOrdering Facility: [facility] Address: [address] [place] [address] Performed By: #### 2 4323-8 ####[facility] LABCLIA [id number] [place] [address] AST [Catalytic activity/Vol] 14 U/L Normal 14-40 [facility] Comment on above: Order Comment: Speci men Type: BLOOD SPECIMENOrdering Facility: [facility] Address: [address] [place] [address] Performed By: #### 2 4323-8 ####[facility] LABCLIA [id number] [place] [address] Bilirubin [Mass/Vol] 0.5 mg/dL Normal 0.2-1.3 [facility] Comment on above: Order Comment: Speci men Type: BLOOD SPECIMENOrdering Facility: [facility] Address: [address] [place] [address] Performed By: #### 2 4323-8 ####[facility] LABCLIA [id number] [place] [address] Calcium [Mass/Vol] 9.5 mg/dL Normal 8.5-10.2 [facility] Comment on above: Order Comment: Speci men Type: BLOOD SPECIMENOrdering Facility: [facility] Address: [address] [place] [address] Performed By: #### 2 4323-8 ####[facility] LABCLIA [id number] [place] [address] Chloride [Moles/Vol] 101 mmol/L Normal 98-107 [facility] Comment on above: Order Comment: Speci men Type: BLOOD SPECIMENOrdering Facility: [facility] Address: [address] [place] [address] Performed By: #### 2 4323-8 ####[facility] LABCLIA [id number] [place] [address] CO2 [Moles/Vol] 26 mmol/L Normal 22-30 [facility] Comment on above: Order Comment: Speci men Type: BLOOD SPECIMENOrdering Facility: [facility] Address: [address] [place] [address] Performed By: #### 2 4323-8 ####[facility] LABCLIA [id number] [place] [address] Creatinine [Mass/Vol] 1.31 mg/dL High 0.73-1.22 [facility] Comment on above: Order Comment: Speci men Type: BLOOD SPECIMENOrdering Facility: [facility] Address: [address] [place] [address] Performed By: #### 2 4323-8 ####[facility] LABCLIA [id number] [place] [address] Creatinine and Glomerular filtration rate.predicted panel (S/P/Bld) 57 mL/min/1.73m??? Low >=60 [facility] Comment on above: Order Comment: Speci men Type: BLOOD SPECIMENOrdering Facility: [facility] Address: [address] [place] [address] Result Comment: Emely mated Glomerular Filtration Rate [...] actual GFR. Performed By: #### 2 4323-8 ####[facility] LABCLIA [id number] [place] [address] Glucose [Mass/Vol] 108 mg/dL High 74-99 [facility] Comment on above: Order Comment: Manoj conner Type: BLOOD SPECIMENOrdering Facility: [facility] Address: [address] [address] Result Comment: The [place] Diabetes Association (ADA) provides guidance for cutoff [...] Standards of Medical Care in Diabetes 2016, [place] [employer]. Diabetes Care. 2016.39(Suppl 1). Performed By: #### 2 4323-8 ####[facility] LABCLIA [id number] [place] [address] Potassium [Moles/Vol] 4.5 mmol/L Normal 3.7-5.1 [facility] Comment on above: Order Comment: Manoj conner Type: BLOOD SPECIMENOrdering Facility: [facility] Address: [address] [place] [id number] Performed By: #### 2 4323-8 ####[facility] LABCLIA [id number] [place] [address] Protein [Mass/Vol] 6.2 g/dL Low 6.3-8.0 [facility] Comment on above: Order Comment: Manoj conner Type: BLOOD SPECIMENOrdering Facility: [facility] Address: [address] [place] [address] Performed By: #### 2 4323-8 ####[facility] LABCLIA [id number] [place] [address] Sodium [Moles/Vol] 135 mmol/L Low 136-144 [facility] Comment on above: Order Comment: Speci men Type: BLOOD SPECIMENOrdering Facility: [facility] Address: [address] [place], [place] [address] [id number] Performed By: #### 2 4323-8 ####[facility] LABCLIA [id number] [place] [address] Urea nitrogen [Mass/Vol] 17 mg/dL Normal 9-24 [facility] Comment on above: Order Comment: Speci men Type: BLOOD SPECIMENOrdering Facility: [facility] Address: [facility] [place] [id number] Performed By: #### 2 4323-8 ####[facility] LABCLIA [id number] [place] [address] CNOVSPon 07-19-2024 CNOVSP Visit (SP) Office (HEMASA) MARY DIAZ ([id number]) 1950 [facility] Date Time Provider Department 07/19/24 11:00 AM NORBERTO ANDRADE HEMASA During your visit today, we recorded the following information about you: Temperature Pulse Respiration Blood pressure 97.2 degrees 81/minute 18/minute 121/74 Weight 86.7 kg Norberto Andrade MD 07/19/2024 11:42 AM Signed PATIENT NAME: Mary Diaz [facility] NO.: [id number] ATTENDING PHYSICIAN: Norberto Andrade MD DATE OF SERVICE: July 19, [address] 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 Urology recommended [...] atleast 1 fragment without obvious stromal invasion (software writer). 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 - Urology recommended induction BCG x 6 treatments. - We will start him on weekly BCG treatments after 2 weeks from today - Check CBC CMP - All his questions answered in detail - F/u in [address] Lionel Whitney [address] [place] [address] thank you for allowing me to participate in Mary Diaz care, if there are any questions or concerns please do not hesitate to contact me at the number below. I spent a total of 60 pawan (more content not included)... Normal [facility] Ambulatory Visit Summaryon 0 07-12-2024 Ambulatory Visit [...] Lionel WHITNEY MD Where: [facility] [place] [phone] You Need to Schedule the Following Appointments Follow Up with DEVONTE NOBLE, CAROLINA Salazar When: Where: [facility] [address], [place] [address]- Medications What How Much When Instructions Unchanged [...] history of bladd (more content not included)... 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 Mitomycin 03/26/22 and 04/20/22. TURBT 01/14/23 - Neg. Chronic inflammation and extensive necrosis. S/p TURBT 07/06/24 - A small focus of borderline high-grade papillary urothelial carcinoma in at least 1 fragment wo obvious stromal invasion (software writer). 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 Reviewed pathology with pt. Intravesical BCG recommended to help prevent tumor recurrence. EORTC 80642 trial showed no difference between 1/3 dose and full-dose BCG in patients with high-risk disease. Pt is aware of the reasoning and is amenable to proceed as discussed. Will likely need to refer to [facility] for BCG. Previously received mitomycin which is good for low grade bladder ca but not high grade. Follow up after below or sooner if needed. Pt understands and agrees with plan. -Refer to [facility] for induction BCG x 6 doses. Then [...] therapy. Follow-up With When Contact Information DEVONTE ONBLE, Lionel Burgos, URL [facility] [address], [place] [address]- Additional Instructions: Refer to [facility] for induction BCG x 6 doses Patient [...] Colonoscopy (05/2014), Complete (more content not included)... Normal [facility] Comment on above: Result Comment: Elec tronically Signed By: Lionel WHITNEY MD\.br\Date and Time Signed: 07/12/24 11:00 EST\.br\Electronically Co-Signed By: Liane Wheeler.br\Date and Time Co-Signed: 07/12/24 10:59 EST Guillermo 07-06-2024 L Specimen: [id number] Received: 07/07/24 Status: ZACKERY Cheng Num: [id number] Spec Type: Surgical Subm Dr: Lionel Whitney MD Tissues: A Urinary Bladder - TUR (BLADDER TUMOR) Procedures: HE, Gross/Micro L5 Age/ Patient Sex Location Account Attending Physician Mary Diaz 74/M LABELL [id number] Lionel Whitney MD SPEC NUM: [id number] RECD: 07/07/24 STATUS: ZACKERY CHENG NUM: [id number] JOE: 07/06/[address] [facility] [address]: Lionel Whitney MD ENTERED: 07/07/[address]: Cyndee Reilly SPEC TYPE: Surgical DEPT: KIANA HERNANDEZ ENTERED BY: [id number] RECV BY: [id number] ORDERED: FRANSICO, Gross/Micro L5 ORDERED: HE, Gross/Micro L5 Pathological Diagnosis Urinary bladder tumor, TURBT: -A small focus of borderline high-grade papillary urothelial carcinoma in at least 1 fragment, without obvious stromal invasion (software writer) -Muscularis propria muscle is also present [...] entirely submitted in a single cassette. (1, ns, BS A) YAMILKA Specimen: [id number] Received: 07/07/24 Status: ZACKERY Cheng Num: [id number] Spec Type: Surgical Subm Dr: Lionel Whitney MD Tissues: A Urinary Bladder - TUR (BLADDER TUMOR) Procedures: Kathy BATEMAN/Eligio L5 Patient: Mary Diaz [id number] (Continued) Specimen: [id number] Received: 07/07/24 (Continued) Signed (signature on file) Yordy Dixon MD 07/10/24 1627 Specimen: [id number] Received: 07/07/24 Status: ZACKERY Cheng Num: [id number] Spec Type: Surgical Subm Dr: Lionel Whitney MD Tissues: A Urinary Bladder - TUR (BLADDER TUMOR) Procedures: Kathy BATEMAN/Eligio Ochoa Patient: Mary Diaz [id number] (Continued) Specimen: [id number] Received: 07/07/24 (Continued) Microscopic Description Microscopic examinations are performed supporting the above interpretation CPT Codes 08759 Specimen: [id number] Received: 07/07/24 Status: ZACKERY Cheng Num: [id number] Spec Type: Surgical Subm Dr: Lionel Whitney MD Tissues: A Urinary Bladder - TUR (BLADDER TUMOR) Procedures: Kathy BATEMAN/Eligio L5 Patient: Mary Diaz [id number] (Continued) Signed (signature on file) Yordy Dixon MD 07/10/24 6950 Normal [facility] TRANSTHORACIC ECHO (TTE) COM PLETEon 06-09-2024 TRANSTHORACIC ECHO (TTE) COMPLETE [address], [place] [address] TRANSTHORACIC ECHOCARDIOGRAM REPORT Patient Name: MARY Sue Ahn Physician: [id number] Rolly Michaels MD, [facility] Study Date: 06/09/2024 Ordering Provider: [id number] CADY ESPINOSA MRN/PID: [id number] Fellow: Nurse: Date of /Age: 8 1950 / 74 years Counter Manager: Alyse Arriaga RDCS, RVT Gender Assigned at M Additional Staff: : Height: 182.88 cm Admit Date: Weight: 86.64 kg Admission Status: BSA / BMI: 2.09 m2 / 25.90 Department Location: [facility] kg/m2 Heart Fine Blood Pressure: 162 /82 mmHg Study Type: TRANSTHORACIC ECHO (TTE) COMPLETE Diagnosis/ICD: Shortness of breath-R06.02 Indication: HTN, Hyperlipidemia, Former Smoker, Asymetrical Upper Extremity Blood Pressures, History of Bladder and Prostate Cancer CPT Codes: Echo Complete w Full Doppler-91128 Study Detail: The following Echo studies were [...] mmHg PIEDV: 2.07 m/s PADP: 20.1 mmHg [id number] Rolly Michaels MD, FACC Electronically signed on 06/09/2024 at 4:40:40 PM Final Normal [facility] US Heart TransthoracicOrdere d By: Rolly Michaels on 06-09-2024 Aortic Valve Area by Continuity of Peak Velocity 2.99 cm2 [facility] Work Phone: Aortic Valve Area by Continuity of VTI 3.72 cm2 [facility] Work Phone: AV mn grad 4 mmHg [facility] Work Phone: AV pk grad 9 mmHg [facility] Work Phone: AV pk sedrick 1.47 m/s [facility] Work Phone: LV A4C EF 71.4 [facility] Work Phone: LV Biplane EF 68 % [facility] Work Phone: LV EF 63 % [facility] Work Phone: LVIDd 5.09 cm [facility] Work Phone: LVOT diam 2.5 cm [facility] Work Phone: MV avg E/e' ratio 6.2 [facility] Work Phone: MV E/A ratio 0.57 [facility] Work Phone: RVSP 30.2 mmHg [facility] Work Phone: [facility] Work Phone: Heart Transthoracicon [address], [address] [place] [address] TRANSTHORACIC ECHOCARDIOGRAM REPORT Patient Name: MARY DIAZ Reading Physician: [id number] Rolly Michaels MD, [facility] Study Date: 06/09/2024 Ordering Provider: [id number] CADY ESPINOSA MRN/PID: [id number] Fellow: Nurse: Date of /Age: 8 1950 / 74 years Counter Manager: Alyse Arriaga RDCS, RVT Gender Assigned at Additional Staff: : Height: 182.88 cm Admit Date: Weight: 86.64 kg Admission Status: BSA / BMI: 2.09 m2 / 25.90 Department Location: [facility] kg/m2 [facility] Blood Pressure: 162 /82 mmHg Study Type: TRANSTHORACIC ECHO (TTE) COMPLETE Diagnosis/ICD: Shortness of breath-R06.02 Indication: HTN, Hyperlipidemia, Former Smoker, Asymetrical Upper Extremity Blood Pressures, History of Bladder and Prostate Cancer CPT Codes: Echo Complete w Full Doppler-76666 Study Detail: The following Echo studies were [...] not included)... Rolly Lerner MD - 06/09/[address], [address] [place] [address] TRANSTHORACIC ECHOCARDIOGRAM REPORT Patient Name: MARY DIAZ Reading Physician: [id number] Rolly Michaels MD, [facility] Study Date: 06/09/2024 Ordering Provider: [id number] CADY ESPINOSA MRN/PID: [id number] Fellow: Nurse: Date of /Age: 8 1950 / 74 years Counter Manager: Alyse Arriaga RDCS, RVT Gender Assigned at M Additional Staff: : Height: 182.88 cm Admit Date: Weight: 86.64 kg Admission Status: BSA / BMI: 2.09 m2 / 25.90 Department Location: [facility] kg/m2 [facility] Blood Pressure: 162 /82 mmHg Study Type: TRANSTHORACIC ECHO (TTE) COMPLETE Diagnosis/ICD: Shortness of breath-R06.02 Indication: HTN, Hyperlipidemia, Former Smoker, Asymetrical Upper Extremity Blood Pressures, History of Bladder and Prostate Cancer CPT Codes: Echo Complete w Full Doppler-85404 Study Detail: The following Echo studies were [...] mmHg PIEDV: 2.07 m/s PADP: 20.1 mmHg [id number] Rolly Michaels MD, [facility] Electronically signed on 06/09/2024 at 4:40:40 PM Final [facility] Work Phone: US.doppler Carotid arteries - bilateralon 06-09-[address], [address] [place] [address] [facility] US CAROTID ARTERY DUPLEX BILATERAL Patient Name: MARY Sue DIAZ Reading Physician: [id number] Rolly Michaels MD, [facility] Study Date: 06/09/2024 Ordering Provider: [id number] CADY ESPINOSA MRN/PID: [id number] Fellow: Technologist: Alyse Arriaga RDCS, [facility] Date of /Age: 8 1950 / 74 years Technologist 2: Gender: M Admission Status: Outpatient Location Performed: [facility] Diagnosis/ICD: Other specified symptoms and signs involving the circulatory and respiratory systems-R09.89 Indication: Unequal Upper Extremity Blood Pressures, HTN, Hyperlipidemia, Former Smoker, History of Bladder and Prostate Cancer CPT Codes: 15334 Cerebrovascular Carotid Duplex scan complete CONCLUSIONS: Right [...] cm/s Right Left ICA/CCA Ratio 1.5 0.7 [id number] Rolly Michaels MD, FACC Final Rolly Lerner MD - 06/09/[address], [place] [address] Vascular Lab Report VASC US CAROTID ARTERY DUPLEX BILATERAL Patient Name: MARY Ahn Physician: [id number] Rolly Michaels MD, FACC Study Date: 06/09/2024 Ordering Provider: [id number] CADY ESPINOSA MRN/PID: [id number] Fellow: Technologist: Alyse Arriaga RDCS, T Date of /Age: 8 1950 / 74 years Technologist 2: Gender: M Admission Status: Outpatient Location Performed: [facility] Diagnosis/ICD: Other specified symptoms and signs involving the circulatory and respiratory systems-R09.89 Indication: Unequal Upper Extremity Blood Pressures, HTN, Hyperlipidemia, Former Smoker, History of Bladder and Prostate Cancer CPT Codes: 09102 Cerebrovascular Carotid Duplex scan complete CONCLUSIONS: Right [...] cm/s Right Left ICA/CCA Ratio 1.5 0.7 [id number] Rolly Michaels MD, FACC Final [facility] Work Phone: Radiology Study observation (narrative) [facility] Work Phone: US.doppler Carotid arteries - bilateralOrdered By: Rolly Michaels on 06-09-2024 [facility] Work Phone: [facility] US CAROTID ARTERY DUPLE X BILATERALon 06-09-2024 [facility] US CAROTID ARTERY DUPLEX BILATERAL [facility] [address], [address], [place] [address] [facility] US CAROTID ARTERY DUPLEX BILATERAL Patient Name: MARY DIAZ Reading Physician: [id number] Rolly Michaels MD, [facility] Study Date: 06/09/2024 Ordering Provider: [id number] CADY ESPINOSA MRN/PID: [id number] Fellow: Technologist: Alyse Arriaga [facility], [facility] Date of /Age: 8 1950 / 74 years Technologist 2: Gender: M Admission Status: Outpatient Location Performed: [facility] Diagnosis/ICD: Other specified symptoms and signs involving the circulatory and respiratory systems-R09.89 Indication: Unequal Upper Extremity Blood Pressures, HTN, Hyperlipidemia, Former Smoker, History of Bladder and Prostate Cancer CPT Codes: 51708 Cerebrovascular Carotid Duplex scan complete CONCLUSIONS: Right [...] cm/s Right Left ICA/CCA Ratio 1.5 0.7 [id number] Rolly Michaels MD, FACC Final Normal [facility] Urine Cytology ([facility])on 07-30-2023 Microscopic exam Cytology (U) [Interp] Diagnosis Info Invalid Interpretation Code [facility] Comment on above: Result Comment: A:Ur ine,Urine:Voided Interpretation - Occasional atypical urothelial cells with degenerative changes. CPT 41377 MicroScopic Description - Adequacy - Gross Description Site ID:A color Yellow fixative Alcohol Specimen designated Urine received in alcohol preservative and labeled with the patient???s name, consists of 40ml clear yellow fluid. Electronically signed by : on: 05/29/2024 13:16:19 Performed By: #### 1 [id number] #### [facility] [address] [place] [address] Urine Cytology ([facility])on 07-23-2023 UC Method of Extraction Voided Normal [facility] Comment on above: Performed By: #### 1 [id number] #### [facility] [address] [place] [address] Number of Jars 1 Invalid Interpretation Code [facility] Comment on above: Performed By: #### 1 [id number] #### [facility] [address] [place] [address] UC Specimen Urine Normal [facility] Comment on above: Performed By: #### 1 [id number] #### [facility] [address] [place] [address] UC Type of Service Technical Only Normal [facility] Comment on above: Performed By: #### 1 [id number] #### [facility] [address] [place] [address] UroVysion Fish and Urine Cyt o ([facility])on 05-15-2024 UV[facility] & UC Diagnosis Info Invalid Interpretation Code [facility] Comment on above: Result Comment: Rodrick s Description Electronically signed by : on: 05/15/2024 11:58:17 Performed By: #### 1 [id number] #### [facility] [address] [place] [address] Main OR Intraoperative Recor don 05-09-2024 Main OR Intraoperative Record Main OR Intraoperative Record IntraOp Document Type FTURO Summary Primary Physician: Lionel WHITNEY MD Finalized Date/Time: 05/09/24 09:43:24 Pt. Name: MARY DIAZ/Sex: 1950 Male Med Rec #: [id number] Physician: Lionel WHITNEY MD Financial #: [id number] Pt. Type: O Room/Bed: / Admit/Disch: 05/09/24 [...] Nanci Bellamy Role Performed Surgeon - Primary Correction Officer Reformatory - Primary Scrub - Primary Time In 05/09/24 09:33:00 05/09/24 09:25:00 05/09/24 09:25:00 Time Out 05/09/24 09:42:00 05/09/24 09:42:00 05/09/24 09:42:00 Procedure CYSTOSCOPY LOCAL(.) CYSTOSCOPY LOCAL(.) CYSTOSCOPY LOCAL(.) Comments Last Modified By: Fitz ZELAYA, Frances Byrnes RN, Frances Bynres RN, Frances Bellamy 05/09/24 Carol P 05/09/24 [...] (If Participants Fitz ZELAYA, Frances Applicable) Carol P, Safia PLANT ENGINEERING SUPERVISOR, Nanci A Time Out Complete 05/09/24 09:33:00 [...] By: Frances Byrnes RN 05/09/24 09:43 Normal [facility] Main OR Preoperative Recordo n 05-09-2024 Main OR Preoperative Record Main OR Preoperative Record Holding Area Document Type FTURO Summary Primary Physician: Lionel WHITNEY MD Finalized Date/Time: 05/09/24 09:28:03 Pt. Name: MARY DIAZ/Sex: 1950 Male Med Rec #: [id number] Physician: Lionel WHITNEY MD Financial #: [id number] Pt. Type: O Room/Bed: / Admit/Disch: 05/09/24 [...] Complaints of Pain: No Skin Integrity Intact, New Point, Warm, & Dry Vitals - EU Blood Pressure 190/90 Pulse 78 bpm Respirations 18 br/min SPO2 96 % Additional JIM RN Reviewed Yes Specimens Collected Last Modified By: Frances Byrnes RN 05/09/24 09:28:01 Finalized By: Frances Byrnes RN Document Signatures Signed By: Esther Boyd LPN 05/09/24 09:10 Frances Byrnes RN 05/09/24 09:28 Normal [facility] Operative Reporton Operative Report Operative [...] with antibiotic coverage, Follow up arranged. Normal [facility] Comment on above: Result Comment: Elec tronically Signed By: DEVONTE NOBLE, Lionel Ernandez\Date and Time Signed: 05/09/24 09:48 EST UroVysion Fish and Urine Cyt o ([facility])on 05-09-2024 [facility] Method of Extraction Voided Normal [facility] Comment on above: Performed By: #### 1 [id number] #### [facility] [address] [place] [address] [facility] Number of Jars 1 Invalid Interpretation Code [facility] Comment on above: Performed By: #### 1 [id number] #### [facility] [address] [place] [address] [facility] Specimen Urine Normal [facility] Comment on above: Performed By: #### 1 [id number] #### [facility] [address] [place] [address] [facility] Type of Service Technical Only Normal [facility] Comment on above: Performed By: #### 1 [id number] #### [facility] [address] [place] [address] ECG 12 Leadon 05-08-2024 [facility] Work Phone: Reminderson 04-13-2024 Reminders Reminders - From: Loretta Simons To: [place] - Leandro Whitney; Sent: 04/13/2024 11:42:40 EDT Show up: 08/19/2024 11:42:00 EST Subject: Cysto/Needs FISH/cytol Due Date/Time: 09/11/2024 11:42:00 EDT Reminder/Recall Patient is due in October 2024 for 6 month cysto/fish/cytol, bt ck Normal [facility] Patient Educationon 11-26-19 Patient Education [...] including vitamins, herbs, eye drops, creams, and tedc-mqn-sxocjtq medicines. ? Any problems you or family [...] tells you to take them. ? Taking jdpa-xao-clgfjly medicines, vitamins, herbs, and supplements. General instructions [...] health c (more content not included)... Normal [facility] UroVysion Fish and Urine Cyt o ([facility])on 11-02-2023 [facility] & [facility] Diagnosis Info Invalid Interpretation Code [facility] Comment on above: [...] on: 11/02/2023 10:22:27 Performed By: #### 1 [id number] ####[facility] [address] [place] [address] Consent for Procedure/Surger yon 10-26-2023 Consent for Procedure/Surgery [id number] 2#1.00TIFF [facility] Consent for Treatmenton Consent for Treatment [id number] #1.00TIFF Normal [facility] IntraOperative Documentson 0 10-26-2023 IntraOperative Documents [id number] 2#1.00TIFF [facility] Main OR Intraoperative Recor don 10-26-2023 Main OR Intraoperative Record IntraOp Document Type FTURO Summary Primary Physician: Lionel WHITNEY MD Finalized Date/Time: 10/26/23 11:57:52 Pt. Name: MARY DIAZ/Sex: 1950 Male Med Rec #: [id number] Physician: Lionel WHITNEY MD Financial #: [id number] Pt. Type: O Room/Bed: / Admit/Disch: 10/26/23 09:34:20 - Institution: Case Times FTURO Entry 1 Patient Times In Room 10/26/23 11:49:00 Out Room 10/26/23 11:57:00 Procedure Times Start 10/26/23 11:51:00 Stop 10/26/23 11:55:00 Anesthesia Times Last Modified By: Fabiana Galaviz 10/26/23 11:57:45 Case Attendance FTURO Entry 1 Entry 2 Entry 3 Case Attendee Lionel WHITNEY MD, Kelsie E McClain CST, Kimberly A Role Performed Surgeon - Primary Correction Officer Reformatory - Primary Scrub - Primary Time In [...] Prep Agents Betadine Solution Skin. Condition Intact, New Point, Warm, and Description REDDED DOTS ON Dry, [...] 10/26/23 11:57 Fabiana Galaviz 10/26/23 11:57 Normal [facility] Main OR Preoperative Recordo n 10-26-2023 Main OR Preoperative Record Holding Area Document Type FTURO Summary Primary Physician: Lionel WHITNEY MD Finalized Date/Time: 10/26/23 11:16:48 Pt. Name: MARY DIAZ /Sex: 1950 Male Med Rec #: [id number] Physician: Lionel WHITNEY MD Financial #: [id number] Pt. Type: O Room/Bed: / Admit/Disch: 10/26/23 [...] 11:11 Nanci Cortes RN 10/26/23 11:16 Normal [facility] Operative Reporton Operative Report Patient: [...] with antibiotic coverage, Follow up arranged. Normal [facility] Comment on above: Result Comment: Elec tronically Signed By: Lionel WHITNEY MD\.br\Date and Time Signed: 10/26/23 11:58 EDT Outpatient Surgery Discharge Instructionon 10-26-2023 Outpatient Surgery Discharge Instruction [id number] 2#1.00TIFF Normal [facility] UroVysion Fish and Urine Cyt o ([facility])on 10-26-2023 [facility] Method of Extraction Voided Normal [facility] Comment on above: Performed By: #### 1 [id number] ####[facility] [address] [place] [address] [facility] Number of Jars 1 Invalid Interpretation Code [facility] Comment on above: Performed By: #### 1 [id number] ####[facility] [address] [place] [address] [facility] Specimen Urine Normal [facility] Comment on above: Performed By: #### 1 [id number] ####[facility] [address] [place] [address] [facility] Type of Service Technical Only Normal [facility] Comment on above: Performed By: #### 1 [id number] ####[facility] [address] [place] [address] Ambulatory Visit Summaryon 0 10-04-2023 Ambulatory Visit Summary MARY DIAZ Sue :1950 Visit Date:10/04/2023 Ambulatory Visit Instructions Your [...] Appointments Wednesday 12:00 PM EDT With: Where: [facility] Wednesday 10:00 AM EDT With: Where: [facility] Wednesday 10:15 AM EDT With: Lionel WHITNEY MD Where: [facility] Patient Educationon 10-04-19 24 Patient Education Oncology [...] if anything looks unusual. Men with a xgmrmt-aeqp-irnemu risk for skin cancer may want to see a science specialist (steaming machine operator) for an annual body check. What are the benefits of screening? Cancer screening is done to look for cancer in the very early stages, before it spreads and becomes harder to treat and before you would start to notice symptoms. Finding cancer early improves the chances of successful treatment. It ma (more content not included)... Normal [facility] Urology Office/Clinic Noteon 10-04-2023 Urology [...] [facility] [address], [place] [phone] Additional Instructions: 1 yr w/ PSA Patient [...] inhalation po (more content not included)... Normal [facility] Comment on above: Result Comment: Elec tronically Signed By: Lionel WHITNEY MD\.br\Date and Time Signed: 10/04/23 11:16 EDT\.br\Electronically Co-Signed By: Lilo Zhou\.br\Date and Time Co-Signed: 10/04/23 11:14 EDT Lab Reportson 09-22-2023 Lab Reports [id number] #1.00TIFF Normal [facility] MR cervical spine wo/w conon 08-29-2023 MR cervical spine wo/w con [facility] Main [place] [address] [place] [address] MRI Report Signed Patient: Mary Diaz MR#: [id number] : 1950 Acct:[id number] Age/Sex: 73 / M ADM Date: 08/28/23 Loc: MR Room: Type: [facility] Attending Dr: Esther HILTON Copies to: LIDA [...] Lupe Campos M.D.08/29/2023 1:06 PM Dictation Location: [place] [address] Transcribed By: [facility] 08/29/23 1306 Dictated By: Lupe Campos MD 08/29/23 1254 Signed By: 08/29/23 1306 Normal [facility] ISTAT XRay CREon 08-28-2023 ISTAT GFR > 60.0 Normal [facility] Comment on above: Result Comment: PERF ORMED BY: [place] [address] PATHOLOGIST AIRCRA[employer] RIVETER JENARO FLOREZ M.D. Performed By: #### I SCRE #### [address] No Panel InformationOrdered By: Esther Lowery on 08-28-2023 Bedside Estimated GFR (eGFR) > 60.0 [facility] Whole blood creatinine measu rementOrdered By: Esther Lowery on 08-28-2023 Creatinine [Mass/Vol] 1.2 mg/dL Normal 0.6-1.3 [facility] Comment on above: ER/ESD physician is notified/shown all ISTAT results.Critical values may be confirmed by laboratory testing ifdeemed necessary by ER attending doctor. Result Comment: ER/E SD physician is notified/shown all ISTAT results. Critical values may be confirmed by laboratory testing if deemed necessary by ER attending doctor. Performed By: #### I SCRE #### [address] XR cervical spine LAT/FLX/EX Ton 08-12-2023 XR cervical spine LAT/FLX/EXT [facility] Main [place] [address] [place] [address] XRay Report Signed Patient: Mary Diaz MR#: [id number] : 1950 Acct:[id number] Age/Sex: 73 / M ADM Date: 08/12/23 Loc: XD Room: Type: [facility] Attending Dr: Esther BASILIOC Copies to: LIDA [...] Kenny Leahy M.D.08/12/2023 3:29 PM Dictation Location: [place] [address] Transcribed By: [facility] 08/12/23 1529 Dictated By: Kenny Leahy DO 08/12/23 1528 Signed By: 08/12/23 1529 Normal [facility] XR lumbar spine 6V w bending on 02-22-2024 XR lumbar spine 6V w bending [facility] Main [place] [address] [place] [address] XRay Report Signed Patient: Mary Diaz MR#: [id number] : 1950 Acct:[id number] Age/Sex: 73 / M ADM Date: 08/12/23 Loc: XD Room: Type: [facility] Attending Dr: Esther HILTON Copies to: LIDA [...] Kenny Leahy M.D.08/12/2023 3:28 PM Dictation Location: [place] [address] Transcribed By: [facility] 08/12/23 1528 Dictated By: Kenny Leahy DO 08/12/23 1526 Signed By: 08/12/23 1528 Normal [facility] XR CSPINE MIN 4 VIEWSon 05-0 XR [...] ALLI CORTES Date: 2022-10-23 11:53 Normal [facility] XR LSPINE W_OBLS AND FLEX_EX Ton [...] [place] GONZALEZ Date: 2022-10-23 13:18 Normal [facility] BNPon 10-06-2022 Natriuretic peptide B (Bld) [Mass/Vol] 844.0 pg/mL Normal <=900.0 [facility] Comment on above: Performed By: #### C VDTB #### [facility] [address] [place] [address] Dr. Johnna Dixon CBC AUTO DIFFon 10-06-2022 BASO # 0.0 103/ul Normal 0.0-0.1 [facility] Comment on above: Performed By: #### C BC #### [facility] [address] [place] [address] Dr. Johnna Dixon Basophils/100 WBC (Bld) 0.0 % Critically low 0.2-2.0 [facility] Comment on above: Performed By: #### C BC #### [facility] [address] [place] [address] Dr. Johnna Dixon EO # 0.0 103/ul Normal 0.0-0.7 [facility] Comment on above: Performed By: #### C BC #### [facility] [address] [place] [address] Dr. Johnna Dixon Eosinophils/100 WBC (Bld) 0.0 % Critically low 0.9-7.0 [facility] Comment on above: Performed By: #### C BC #### [facility] [address] [place] [address] Dr. Johnna Dixon Erythrocyte distribution width (RBC) [Ratio] 13.9 % Normal 11.0-15.0 [facility] Comment on above: Performed By: #### C BC #### [facility] [address] [place] [address] Dr. Johnna Dixon Hematocrit (Bld) [Volume fraction] 33.6 % Critically low 42.0-54.0 [facility] Comment on above: Performed By: #### C BC #### [facility] [address] [place] [address] Dr. Johnna Dixon Hemoglobin (Bld) [Mass/Vol] 11.1 g/dL Critically low 14.0-18.0 [facility] Comment on above: Performed By: #### C BC #### [facility] [address] [place] [address] Dr. Johnna Dixon IG # 0.03 10e3/ul Normal 0.00-0.03 [facility] Comment on above: Performed By: #### C BC #### [facility] [address] [place] [address] Dr. Johnna Dixon IG % 0.5 % Normal 0.0-0.5 [facility] Comment on above: Performed By: #### C BC #### [facility] [address] [place] [address] Dr. Johnna Dixon LYMPH # 0.7 103/ul Critically low 1.2-3.8 [facility] Comment on above: Performed By: #### C BC #### [facility] [address] [place] [address] Dr. Johnna Dixon Lymphocytes/100 WBC (Bld) 11.5 % Critically low 20.5-60.0 [facility] Comment on above: Performed By: #### C BC #### [facility] [address] [place] [address] Dr. Johnna Dixon MANUAL DIFF REQ NO Normal [facility] Comment on above: Performed By: #### C BC #### [facility] [address] [place] [address] Dr. Johnna Dixon MCH (RBC) [Entitic mass] 31.0 pg Normal 25.9-34.0 [facility] Comment on above: Performed By: #### C BC #### [facility] [address] [place] [address] Dr. Johnna Dixon MCHC (RBC) [Mass/Vol] 33.0 g/dL Normal 29.9-35.2 [facility] Comment on above: Performed By: #### C BC #### [facility] [address] [place] [address] Dr. Johnna Dixon MCV (RBC) [Entitic vol] 93.9 fL Normal 80.0-94.0 [facility] Comment on above: Performed By: #### C BC #### [facility] [address] [place] [address] Dr. Johnna Dixon MONO # 0.3 103/ul Normal 0.3-0.8 [facility] Comment on above: Performed By: #### C BC #### [facility] [address] [place] [address] Dr. Johnna Dixon Monocytes/100 WBC (Bld) 4.5 % Normal 1.7-12.0 [facility] Comment on above: Performed By: #### C BC #### [facility] [address] [place] [address] Dr. Johnna Dixon NEUT # 5.0 103/ul Normal 1.4-6.5 [facility] Comment on above: Performed By: #### C BC #### [facility] [address] [place] [address] Dr. Johnna Dixon Neutrophils/100 WBC (Bld) 83.5 % Critically high 43.0-75.0 [facility] Comment on above: Performed By: #### C BC #### [facility] [address] [place] [address] Dr. Johnna Dixon Platelet mean volume (Bld) [Entitic vol] 10.3 fL Normal 9.5-13.5 [facility] Comment on above: Performed By: #### C BC #### [facility] [address] [place] [address] Dr. Johnna Dixon PLT 184 103/ul Normal 150-450 [facility] Comment on above: Performed By: #### C BC #### [facility] [address] [place] [address] Dr. Johnna Dixon RBC 3.58 106/ul Critically low 4.70-6.[address] [facility] Comment on above: Performed By: #### C BC #### [facility] [address] [place] [address] Dr. Johnna Dixon WBC 6.0 103/ul Normal 4.0-11.0 [facility] Comment on above: Performed By: #### C BC #### [facility] [address] [place] [address] Dr. Johnna Dixon PROF 14(COMP METB)on 023 Albumin [Mass/Vol] 2.7 g/dL Critically low 3.4-5.0 [facility] Comment on above: Performed By: #### C VDTBH #### [facility] [address] [place] [address] Dr. Johnna Dixon Albumin/Globulin [Mass ratio] 0.9 {ratio} Normal [facility] Comment on above: Performed By: #### C VDTBH #### [facility] [address] [place] [address] Dr. Johnna Dixon ALP [Catalytic activity/Vol] 32 U/L Critically low 46-116 [facility] Comment on above: Performed By: #### C VDTBH #### [facility] [address] [place] [address] Dr. Johnna Dixon ALT [Catalytic activity/Vol] 19 U/L Normal 16-63 [facility] Comment on above: Performed By: #### C VDTBH #### [facility] [address] [place] [address] Dr. Johnna Dixon Anion gap [Moles/Vol] 14.0 mmol/L Normal [facility] Comment on above: Performed By: #### C VDTBH #### [facility] [address] [place] [address] Dr. Johnna Dixon AST [Catalytic activity/Vol] 12 U/L Critically low 15-37 [facility] Comment on above: Performed By: #### C VDTBH #### [facility] [address] [place] [address] Dr. Johnna Dixon Bilirubin [Mass/Vol] 0.6 mg/dL Normal 0.2-1.0 [facility] Comment on above: Performed By: #### C VDTBH #### [facility] [address] [place] [address] Dr. Johnna Dixon Calcium [Mass/Vol] 8.3 mg/dL Critically low 8.5-10.1 [facility] Comment on above: Performed By: #### C VDTBH #### [facility] [address] [place] [address] Dr. Johnna Dixon Chloride [Moles/Vol] 107 mmol/L Normal 98-107 [facility] Comment on above: Performed By: #### C VDTBH #### [facility] [address] [place] [address] Dr. Johnna Dixon CO2 [Moles/Vol] 24.9 mmol/L Normal 21.0-32.0 [facility] Comment on above: Performed By: #### C VDTBH #### [facility] [address] [place] [address] Dr. Johnna Dixon Creatinine [Mass/Vol] 1.20 mg/dL Normal 0.70-1.30 [facility] Comment on above: Performed By: #### C VDTBH #### [facility] [address] [place] [address] Dr. Johnna Dixon EGFR-AF PUERTO RICAN >60 Normal >=60 [facility] Comment on above: Performed By: #### C VDTBH #### [facility] [address] [place] [address] Dr. Johnna Dixon EGFR-NON AF PUERTO RICAN 60 mL/min/1.73m2 Normal >=60 [facility] Comment on above: Performed By: #### C VDTBH #### [facility] [address] [place] [address] Dr. Johnna Dixon Globulin (S) [Mass/Vol] 2.9 g/dL Normal [facility] Comment on above: Performed By: #### C VDTBH #### [facility] [address] [address] [address] Johnna Dixon Glucose [Mass/Vol] 153 mg/dL Critically high 74-106 [facility] Comment on above: Performed By: #### C VDTBH #### [facility] [address] [address] [address] Johnna Dixon Potassium [Moles/Vol] 3.9 mmol/L Normal 3.5-5.1 [facility] Comment on above: Performed By: #### C VDTBH #### [facility] [address] [place] [address] Dr. Johnna Dixon Protein [Mass/Vol] 5.6 g/dL Critically low 6.4-8.2 [facility] Comment on above: Performed By: #### C VDTBH #### [facility] [address] [place] [address] Dr. Johnna Dixon Sodium [Moles/Vol] 142 mmol/L Normal 136-145 [facility] Comment on above: Performed By: #### C VDTBH #### [facility] [address] [place] [address] Dr. Johnna Dixon Urea nitrogen [Mass/Vol] 14.0 mg/dL Normal 7.0-18.0 [facility] Comment on above: Performed By: #### C VDTBH #### [facility] [address] [place] [address] Dr. Johnna Dixon Urea nitrogen/Creatinine [Mass ratio] 11.7 mg/mg Normal [facility] Comment on above: Performed By: #### C VDTBH #### [facility] [address] [place] [address] Dr. Johnna Dixon CBC AUTO DIFFon 10-05-2022 BASO # 0.0 103/ul Normal 0.0-0.1 [facility] Comment on above: Performed By: #### S PUTGS #### [facility] [address] [place] [address] Dr. Johnna Dixon Basophils/100 WBC (Bld) 0.2 % Normal 0.2-2.0 [facility] Comment on above: Performed By: #### S PUTGS #### [facility] [address] [place] [address] Dr. Johnna Dixon EO # 0.0 103/ul Normal 0.0-0.7 [facility] Comment on above: Performed By: #### S PUTGS #### [facility] [address] [place] [address] Dr. Johnna Dixon Eosinophils/100 WBC (Bld) 0.2 % Critically low 0.9-7.0 [facility] Comment on above: Performed By: #### S PUTGS #### [facility] [address] [place] [address] Dr. Johnna Dixon Erythrocyte distribution width (RBC) [Ratio] 14.1 % Normal 11.0-15.0 [facility] Comment on above: Performed By: #### S PUTGS #### [facility] [address] [place] [address] Dr. Johnna Dixon Hematocrit (Bld) [Volume fraction] 39.9 % Critically low 42.0-54.0 [facility] Comment on above: Performed By: #### S PUTGS #### [facility] [address] [place] [address] Dr. Johnna Dixon Hemoglobin (Bld) [Mass/Vol] 12.8 g/dL Critically low 14.0-18.0 [facility] Comment on above: Performed By: #### S PUTGS #### [facility] [address] [place] [address] Dr. Johnna Dixon IG # 0.01 10e3/ul Normal 0.00-0.03 [facility] Comment on above: Performed By: #### S PUTGS #### [facility] [address] [place] [address] Dr. Johnna Dixon IG % 0.2 % Normal 0.0-0.5 [facility] Comment on above: Performed By: #### S PUTGS #### [facility] [address] [address] [address] Johnna Dixon LYMPH # 0.7 103/ul Critically low 1.2-3.8 [facility] Comment on above: Performed By: #### S PUTGS #### [facility] [address] [address] [address] Johnna Dixon Lymphocytes/100 WBC (Bld) 14.3 % Critically low 20.5-60.0 [facility] Comment on above: Performed By: #### S PUTGS #### [facility] [address] [address] [address] Johnna Dixon MANUAL DIFF REQ NO Normal [facility] Comment on above: Performed By: #### S PUTGS #### [facility] [address] [address] [address] Johnna Dixon MCH (RBC) [Entitic mass] 30.7 pg Normal 25.9-34.0 [facility] Comment on above: Performed By: #### S PUTGS #### [facility] [address] [address] [address] Johnna Dixon MCHC (RBC) [Mass/Vol] 32.1 g/dL Normal 29.9-35.2 [facility] Comment on above: Performed By: #### S PUTGS #### [facility] [address] [place] [address] Dr. Johnna Dixon MCV (RBC) [Entitic vol] 95.7 fL Critically high 80.0-94 .0 [facility] Comment on above: Performed By: #### S PUTGS #### [facility] [address] [address] [address] Johnna Dixon MONO # 0.6 103/ul Normal 0.3-0.8 [facility] Comment on above: Performed By: #### S PUTGS #### [facility] [address] [address] [address] Johnna Dixon Monocytes/100 WBC (Bld) 12.5 % Critically high 1.7-12. 0 [facility] Comment on above: Performed By: #### S PUTGS #### [facility] [address] [place] [address] Dr. Johnna Dixon NEUT # 3.6 103/ul Normal 1.4-6.5 [facility] Comment on above: Performed By: #### S PUTGS #### [facility] [address] [place] [address] Dr. Johnna Dixon Neutrophils/100 WBC (Bld) 72.6 % Normal 43.0-75.0 [facility] Comment on above: Performed By: #### S PUTGS #### [facility] [address] [place] [address] Dr. Johnna Dixon Platelet mean volume (Bld) [Entitic vol] 9.5 fL Normal 9.5-13.5 [facility] Comment on above: Performed By: #### S PUTGS #### [facility] [address] [place] [address] Dr. Johnna Dixon PLT 213 103/ul Normal 150-450 [facility] Comment on above: Performed By: #### S PUTGS #### [facility] [address] [place] [address] Dr. Johnna Dixon RBC 4.17 106/ul Critically low 4.70-6.[address] [facility] Comment on above: Performed By: #### S PUTGS #### [facility] [address] [place] [address] Dr. Johnna Dixon WBC 5.0 103/ul Normal 4.0-11.0 [facility] Comment on above: Performed By: #### S PUTGS #### [facility] [address] [place] [address] Dr. Johnna Dixon CULTURE BLOODon 10-05-2022 Microscopic examination of blood, culture Culture Observations: NO GROWTH AT 5 DAYS. Normal [facility] Comment on above: Performed By: #### B LDCX2 #### [facility] [address] [place] [address] Dr. Johnna Dixon Microscopic examination of blood, culture Culture Observations: NO GROWTH AT 5 DAYS. Normal [facility] Comment on above: Performed By: #### S PUTGS #### [facility] [address] [place] [address] Dr. Johnna Dixon CULTURE SPUTUMon 10-05-2022 CULTURE SPUTUM Culture Observations: NORMAL RESPIRATORY JONATAN. Normal [facility] Comment on above: Performed By: #### S PUTGS #### [facility] [address] [place] [address] Dr. Johnna Dixon Covid-19 PCR ([facility])on 09-19 SARS-CoV-2 (COVID-19) RNA REX+probe Ql (Unsp spec) Not detected Normal NOT DETECTED [facility] Comment on above: Result Comment: This test is not yet approved or cleared by the [place] FDA. When there are no FDA-approved or cleared tests available, and other criteria are met, FDA can make tests available under an emergency access mechanism called an Emergency Use Authorization (EUA). The EUA for this test is supported by the [place] of Health and Human Service's (HHS's) declaration [...] SARS-CoV-2. Performed By: #### C VDTBH #### [facility] [address] [place] [address] Dr. Johnna Dixon LACTATE/LACTIC ACIDon 2022 Lactate [Moles/Vol] 1.2 mmol/L Normal 0.4-2.0 [facility] Comment on above: Performed By: #### L ACT #### [facility] [address] [place] [address] Dr. Johnna Dixon Lactate [Moles/Vol] 2.4 mmol/L Critically high 0.4-2.0 [facility] Comment on above: Performed By: #### L ACT #### [facility] [address] [address] [address] Johnna Dixon PROF CHEM 8 (BAS METB)on Anion gap [Moles/Vol] 12.6 mmol/L Normal [facility] Comment on above: Performed By: #### B MP #### [facility] [address] [address] [address] Johnna Dixon Calcium [Mass/Vol] 8.9 mg/dL Normal 8.5-10.1 [facility] Comment on above: Performed By: #### B MP #### [facility] [address] [address] [address] Johnna Dixon Chloride [Moles/Vol] 106 mmol/L Normal 98-107 [facility] Comment on above: Performed By: #### B MP #### [facility] [address] [address] [address] Johnna Dixon CO2 [Moles/Vol] 25.8 mmol/L Normal 21.0-32.0 [facility] Comment on above: Performed By: #### B MP #### [facility] [address] [address] [address] Johnna Dixon Creatinine [Mass/Vol] 1.41 mg/dL Critically high 0.70-1.30 [facility] Comment on above: Performed By: #### B MP #### [facility] [address] [address] [address] Johnna Dixon EGFR-AF PUERTO RICAN >60 Normal >=60 [facility] Comment on above: Performed By: #### B MP #### [facility] [address] [address] [address] Johnna Dixon EGFR-NON AF PUERTO RICAN 50 mL/min/1.73m2 Critically low >=60 [facility] Comment on above: Performed By: #### B MP #### [facility] [address] [address] [address] Johnna Dixon Glucose [Mass/Vol] 111 mg/dL Critically high 74-106 [facility] Comment on above: Performed By: #### B MP #### [facility] [address] [address] [address] Johnna Dixon Potassium [Moles/Vol] 3.4 mmol/L Critically low 3.5-5.1 [facility] Comment on above: Performed By: #### B MP #### [facility] [address] [address] [address] Johnna Dixon Sodium [Moles/Vol] 141 mmol/L Normal 136-145 [facility] Comment on above: Performed By: #### B MP #### [facility] [address] [address] [address] Johnna Dixon Urea nitrogen [Mass/Vol] 17.0 mg/dL Normal 7.0-18.0 [facility] Comment on above: Performed By: #### B MP #### [facility] [address] [address] [address] Johnna Dixon Urea nitrogen/Creatinine [Mass ratio] 12.1 mg/mg Normal [facility] Comment on above: Performed By: #### B MP #### [facility] [address] [address] [address] Johnna Dixon SPUTUM GRAM STAINon 10-06-19 COMMENTS Normal [facility] Comment on above: Performed By: #### S PUTGS #### [facility] [address] [address] [address] Johnna Dixon DIPHTHEROIDS Normal [facility] Comment on above: Performed By: #### S PUTGS #### [facility] [address] [address] [address] Johnna Dixon EPITHELIALS <25 Normal [facility] Comment on above: Performed By: #### S PUTGS #### [facility] [address] [address] [address] Johnna Dixon FUNGAL ELEMENTS Normal [facility] Comment on above: Performed By: #### S PUTGS #### [facility] [address] [address] [address] Johnna Dixon GRAM NEG BACILLI FEW Normal [facility] Comment on above: Performed By: #### S PUTGS #### [facility] [address] [place] [address] Dr. Johnna Dixon GRAM NEG DIPPLOCOCCI Normal [facility] Comment on above: Performed By: #### S PUTGS #### [facility] [address] [place] [address] Dr. Johnna Dixon GRAM POS BACILLI Normal [facility] Comment on above: Performed By: #### S PUTGS #### [facility] [address] [place] [address] Dr. Johnna Dixon GRAM POSITIVE COCCI FEW Normal [facility] Comment on above: Performed By: #### S PUTGS #### [facility] [address] [place] [address] Dr. Johnna Dixon WBC (Bld) [#/Vol] 10*3/uL Normal [facility] Comment on above: Performed By: #### S PUTGS #### [facility] [address] [place] [address] Dr. Johnna Dixon SYMPTOMATIC COVID-19 ANTIGEN on 10-05-2022 EUA Statement SEE BELOW Normal [facility] Comment on above: Result [...] sooner. Performed By: #### C VDAGS #### [facility] [address] [place] [address] Dr. Johnna Dixon SARS-CoV-2 (COVID-19) RNA REX+probe Ql (Unsp spec) Negative Normal NEGATIVE [facility] Comment on above: Performed By: #### C VDAGS #### [facility] [address] [place], [place] [address] Dr. Johnna Dixon XR CHEST 1 Von [...] SOCORRO SERRANO Date: 2022-10-05 11:44 Normal [facility] US SINGLE QUAD RT UPPERon US SINGLE [...] SOCORRO HUFFMAN Date: 2022-09-24 09:46 Normal [facility] AMYLASEon 09-21-2022 Amylase [Catalytic activity/Vol] 78 U/L Normal 25-115 [facility] Comment on above: Performed By: #### C VDTBH #### [facility] [address] [place], [place] [address] Dr. Johnna Dixon CBC AUTO DIFFon 09-21-2022 BASO # 0.0 103/ul Normal 0.0-0.1 [facility] Comment on above: Performed By: #### C VDTBH #### [facility] [address] [place] [address] Dr. Johnna Dixon Basophils/100 WBC (Bld) 0.5 % Normal 0.2-2.0 [facility] Comment on above: Performed By: #### C VDTBH #### [facility] [address] [place] [address] Dr. Johnna Dixon EO # 0.1 103/ul Normal 0.0-0.7 [facility] Comment on above: Performed By: #### C VDTBH #### [facility] [address] [place] [address] Dr. Johnna Dixon Eosinophils/100 WBC (Bld) 1.9 % Normal 0.9-7.0 [facility] Comment on above: Performed By: #### C VDTBH #### [facility] [address] [place] [address] Dr. Johnna Dixon Erythrocyte distribution width (RBC) [Ratio] 14.5 % Normal 11.0-15.0 [facility] Comment on above: Performed By: #### C VDTBH #### [facility] [address] [place] [address] Dr. Johnna Dixon Hematocrit (Bld) [Volume fraction] 39.1 % Critically low 42.0-54.0 [facility] Comment on above: Performed By: #### C VDTBH #### [facility] [address] [place] [address] Dr. Johnna Dixon Hemoglobin (Bld) [Mass/Vol] 12.8 g/dL Critically low 14.0-18.0 [facility] Comment on above: Performed By: #### C VDTBH #### [facility] [address] [place] [address] Dr. Johnna Dixon IG # 0.05 10e3/ul Critically high 0.00-0.03 [facility] Comment on above: Performed By: #### C VDTBH #### [facility] [address] [address] [address] Johnna Dixon IG % 0.7 % Critically high 0.0-0.[address] [facility] Comment on above: Performed By: #### C VDTBH #### [facility] [address] [place] [address] Dr. Johnna Dixon LYMPH # 2.0 103/ul Normal 1.2-3.8 [facility] Comment on above: Performed By: #### C VDTBH #### [facility] [address] [place] [address] Dr. Johnna Dixon Lymphocytes/100 WBC (Bld) 27.4 % Normal 20.5-60.0 [facility] Comment on above: Performed By: #### C VDTBH #### [facility] [address] [place] [address] Dr. Johnna Dixon MANUAL DIFF REQ NO Normal [facility] Comment on above: Performed By: #### C VDTBH #### [facility] [address] [place] [address] Dr. Johnna Dixon MCH (RBC) [Entitic mass] 31.3 pg Normal 25.9-34.0 [facility] Comment on above: Performed By: #### C VDTBH #### [facility] [address] [place] [address] Dr. Johnna Dixon MCHC (RBC) [Mass/Vol] 32.7 g/dL Normal 29.9-35.2 [facility] Comment on above: Performed By: #### C VDTBH #### [facility] [address] [place] [address] Dr. Johnna Dixon MCV (RBC) [Entitic vol] 95.6 fL Critically high 80.0-94 .0 [facility] Comment on above: Performed By: #### C VDTBH #### [facility] [address] [place] [address] Dr. Johnna Dixon MONO # 0.5 103/ul Normal 0.3-0.8 [facility] Comment on above: Performed By: #### C VDTBH #### [facility] [address] [address] [address] Johnna Dixon Monocytes/100 WBC (Bld) 6.9 % Normal 1.7-12.0 [facility] Comment on above: Performed By: #### C VDTBH #### [facility] [address] [place] [address] Dr. Johnna Dixon NEUT # 4.7 103/ul Normal 1.4-6.5 [facility] Comment on above: Performed By: #### C VDTBH #### [facility] [address] [place] [address] Dr. Johnna Dixon Neutrophils/100 WBC (Bld) 62.6 % Normal 43.0-75.0 [facility] Comment on above: Performed By: #### C VDTBH #### [facility] [address] [place] [address] Dr. Johnna Dixon Platelet mean volume (Bld) [Entitic vol] 9.3 fL Critically low 9.5-13.5 [facility] Comment on above: Performed By: #### C VDTBH #### [facility] [address] [place] [address] Dr. Johnna Dixon PLT 235 103/ul Normal 150-450 [facility] Comment on above: Performed By: #### C VDTBH #### [facility] [address] [place] [address] Dr. Johnna Dixon RBC 4.09 106/ul Critically low 4.70-6.[address] [facility] Comment on above: Performed By: #### C VDTBH #### [facility] [address] [place] [address] Dr. Johnna Dixon WBC 7.4 103/ul Normal 4.0-11.0 [facility] Comment on above: Performed By: #### C VDTBH #### [facility] [address] [place] [address] Dr. Johnna Dixon LIPASEon 09-21-2022 Lipase [Catalytic activity/Vol] 114.0 U/L Normal 73.0-393.0 [facility] Comment on above: Performed By: #### C VDAGS #### [facility] [address] [address] [address] Johnna Dixon LIVER PROFILEon 09-21-2022 Albumin [Mass/Vol] 3.9 g/dL Normal 3.4-5.0 [facility] Comment on above: Performed By: #### C VDTBH #### [facility] [address] [place] [address] Dr. Johnna Dixon Albumin/Globulin [Mass ratio] 1.6 {ratio} Normal [facility] Comment on above: Performed By: #### C VDTBH #### [facility] [address] [place] [address] Dr. Johnna Dixon ALP [Catalytic activity/Vol] 59 U/L Normal 46-116 [facility] Comment on above: Performed By: #### C VDTBH #### [facility] [address] [place] [address] Dr. Johnna Dixon ALT [Catalytic activity/Vol] 23 U/L Normal 16-63 [facility] Comment on above: Performed By: #### C VDTBH #### [facility] [address] [place] [address] Dr. Johnna Dixon AST [Catalytic activity/Vol] 8 U/L Critically low 15-37 [facility] Comment on above: Performed By: #### C VDTBH #### [facility] [address] [place] [address] Dr. Johnna Dixon BILI, CONJUGATED 0.1 mg/dL Normal 0.0-0.2 [facility] Comment on above: Performed By: #### C VDTBH #### [facility] [address] [place] [address] Dr. Johnna Dixon Bilirubin [Mass/Vol] 0.3 mg/dL Normal 0.2-1.0 [facility] Comment on above: Performed By: #### C VDTBH #### [facility] [address] [place] [address] Dr. Johnna Dixon Globulin (S) [Mass/Vol] 2.5 g/dL Normal [facility] Comment on above: Performed By: #### C VDTBH #### [facility] [address] [place] [address] Dr. Johnna Dixon Protein [Mass/Vol] 6.4 g/dL Normal 6.4-8.2 [facility] Comment on above: Performed By: #### C VDTBH #### [facility] [address] [place] [address] Dr. Johnna Dixon PROF CHEM 8 (BAS METB)on Anion gap [Moles/Vol] 13.4 mmol/L Normal [facility] Comment on above: Performed By: #### C VDTBH #### [facility] [address] [place] [address] Dr. Johnna Dixon Calcium [Mass/Vol] 8.9 mg/dL Normal 8.5-10.1 [facility] Comment on above: Performed By: #### C VDTBH #### [facility] [address] [place] [address] Dr. Johnna Dixon Chloride [Moles/Vol] 106 mmol/L Normal 98-107 [facility] Comment on above: Performed By: #### C VDTBH #### [facility] [address] [place] [address] Dr. Johnna Dixon CO2 [Moles/Vol] 25.6 mmol/L Normal 21.0-32.0 [facility] Comment on above: Performed By: #### C VDTBH #### [facility] [address] [place] [address] Dr. Johnna Dixon Creatinine [Mass/Vol] 1.21 mg/dL Normal 0.70-1.30 [facility] Comment on above: Performed By: #### C VDTBH #### [facility] [address] [place] [address] Dr. Johnna Dixon EGFR-AF PUERTO RICAN >60 Normal >=60 [facility] Comment on above: Performed By: #### C VDTBH #### [facility] [address] [place] [address] Dr. Johnna Dixon EGFR-NON AF PUERTO RICAN 59 mL/min/1.73m2 Critically low >=60 [facility] Comment on above: Performed By: #### C VDTBH #### [facility] [address] [address] [address] Johnna Dixon Glucose [Mass/Vol] 115 mg/dL Critically high 74-106 [facility] Comment on above: Performed By: #### C VDTBH #### [facility] [address] [place] [address] Dr. Johnna Dixon Potassium [Moles/Vol] 4.0 mmol/L Normal 3.5-5.1 [facility] Comment on above: Performed By: #### C VDTBH #### [facility] [address] [place] [address] Dr. Johnna Dixon Sodium [Moles/Vol] 141 mmol/L Normal 136-145 [facility] Comment on above: Performed By: #### C VDTBH #### [facility] [address] [place] [address] Dr. Johnna Dixon Urea nitrogen [Mass/Vol] 19.0 mg/dL Critically high 7.0-18.0 [facility] Comment on above: Performed By: #### C VDTBH #### [facility] [address] [place] [address] Dr. Johnna Dixon Urea nitrogen/Creatinine [Mass ratio] 15.7 mg/mg Normal [facility] Comment on above: Performed By: #### C VDTBH #### [facility] [address] [place] [address] Dr. Johnna Dixon CREATININEon 08-04-2022 Creatinine [Mass/Vol] 1.31 mg/dL Critically high 0.70-1.30 [facility] Comment on above: Performed By: #### C JANIS #### [facility] [address] [place] [address] Dr. Johnna Dixon EGFR-AF PUERTO RICAN >60 Normal >=60 [facility] Comment on above: Performed By: #### C JANIS #### [facility] [address] [place] [address] Dr. Johnna Dixon EGFR-NON AF PUERTO RICAN 54 mL/min/1.73m2 Critically low >=60 [facility] Comment on above: Performed By: #### C JANIS #### [facility] [address] [address] [address] Johnna Dixon CTA NECK WO W [...] by: ALLI CORTES Date: 2022-08-04 14:04 Normal [facility] US CAROTID ART BILon 023 US [...] ALLI CORTES Date: 2022-07-28 12:00 Normal [facility] XR KNEE RT 4V or >on [...] DEBORAH ZARAGOZA Date: 2022-06-30 17:38 Normal [facility] XR RIBS RT PA Fab [...] SOCORRO SERRANO Date: 2022-05-25 14:51 Normal [facility] XR RIBS RT PA Fab [...] atelectasis and small pleural effusion Normal [facility] CT CHEST WO CONon 04-18-2022 [...] SOCORRO BANSAL Date: 2022-04-18 16:17 Normal [facility] CULTURE URINEon 03-12-2022 CULTURE URINE Culture Observations: NO GROWTH. Normal [facility] Comment on above: Performed By: #### S PUTGS #### [facility] [address] [place] [address] Dr. Johnna Dixon COVID-19 Positive/NegativeOr dered By: Lionel Whitney on 02-13-2022 SARS-CoV-2 (COVID-19) N gene REX+probe Ql (Resp) Negative Negative [facility] Comment on above: Testing for SARS-CoV -2 by RT-PCR This test was developed and its performance characteristics determined by [employer] ([employer]) and validated at the [facility]. This test has not been FDA [...] Coag (PPP) [Time] 34.8 s 25.1-36.5 [facility] Basophils Auto (Bld) [#/Vol] Ordered By: Lionel Whitney on 02-06-2022 Basophils (Bld) [#/Vol] 0.0 10*3/uL 0.0-0.2 [facility] Basophils/100 WBC Auto (Bld) Ordered By: Lionel Whitney on 02-06-2022 Basophils/100 WBC (Bld) 0.8 % . [facility] Blood hemoglobin measurement (mass/volume)Ordered By: Lionel Whitney on 02-06-2022 Hemoglobin (Bld) [Mass/Vol] 13.2 g/dL 13.0-17.0 [facility] Blood leukocytes automated c ount (number/volume)Ordered By: Lionel Whitney on 02-06-2022 WBC (Bld) [#/Vol] 5.7 10*3/uL 4.5-11.0 [facility] Creatinine and Glomerular fi ltration rate.predicted panel (S/P/Bld)Ordered By: Lionel Whitney on 02-06-2022 Creatinine [Mass/Vol] 1.21 mg/dL 0.64-1.27 [facility] Eosinophils Auto (Bld) [#/Vo l]Ordered By: Lionel Whitney on 02-06-2022 Eosinophils (Bld) [#/Vol] 0.1 10*3/uL 0.0-0.45 [facility] Eosinophils/100 WBC Auto (Bl d)Ordered By: Lionel Whitney on 02-06-2022 Eosinophils/100 WBC (Bld) 1.7 % . [facility] Erythrocyte distribution wid th Auto (RBC) [Ratio]Ordered By: Lionel Whitney on 02-06-2022 Erythrocyte distribution width (RBC) [Ratio] 14.2 % 12.0-14.8 [facility] Estimated glomerular filtrat ion rate (GFR) non- AmericanOrdered By: Lionel Whitney on 02-06-2022 GFR/1.73 sq M.predicted among non-blacks MDRD (S/P/Bld) [Vol rate/Area] 59 mL/Min [facility] Hematocrit Auto (Bld) [Volum e fraction]Ordered By: Lionel Whitney on 02-06-2022 Hematocrit (Bld) [Volume fraction] 40.8 % 38.8-50.0 [facility] Laboratory - CoagulationOrde red By: Lionel Whitney on 02-06-2022 PT Coag (PPP) [Time] 11.0 s 9.0-12.9 [facility] Laboratory - Hematology and Cell countsOrdered By: Lionel Whitney on 02-06-2022 Nucleated RBC/100 WBC (Bld) [Ratio] 0.1 % 0-0.5 [facility] Lymphocytes Auto (Bld) [#/Vo l]Ordered By: Lionel Whitney on 02-06-2022 Lymphocytes (Bld) [#/Vol] 1.6 10*3/uL 1.00-4.8 [facility] Lymphocytes/100 WBC Auto (Bl d)Ordered By: Lionel Whitney on 02-06-2022 Lymphocytes/100 WBC (Bld) 27.4 % . [facility] MCH Auto (RBC) [Entitic mass ]Ordered By: Lionel Whitney on 02-06-2022 MCH (RBC) [Entitic mass] 29.7 pg 27.5-35.2 [facility] MCHC Auto (RBC) [Mass/Vol]Or dered By: Lionel Whitney on 02-06-2022 MCHC (RBC) [Mass/Vol] 32.4 g/dL 32.5-35.6 [facility] MCV Auto (RBC) [Entitic vol] Ordered By: Lionel Whitney on 02-06-2022 MCV (RBC) [Entitic vol] 91.6 fL 83.5-101 [facility] Monocytes Auto (Bld) [#/Vol] Ordered By: Lionel Whitney on 02-06-2022 Monocytes (Bld) [#/Vol] 0.5 10*3/uL 0.0-0.8 [facility] Monocytes/100 WBC Auto (Bld) Ordered By: Lionel Whitney on 02-06-2022 Monocytes/100 WBC (Bld) 8.7 % . [facility] Neutrophils Auto (Bld) [#/Vo l]Ordered By: Lionel Whitney on 02-06-2022 Neutrophils (Bld) [#/Vol] 3.5 10*3/uL 1.8-7.7 [facility] Neutrophils/100 WBC Auto (Bl d)Ordered By: Lionel Whitney on 02-06-2022 Neutrophils/100 WBC (Bld) 61.4 % . [facility] No Panel InformationOrdered By: Lionel Whitney on 02-06-2022 Estimated GFR () > 60 mL/Min [facility] Comment on above: GFR estimated refere nce range: According to KDOQI guidelines, <60 ml/min/1.73m2 is sufficient to diagnose a patient with chronic kidney disease. Pharmacy Creatinine Clearance (Chem N/A [facility] Platelet mean volume Auto (B ld) [Entitic vol]Ordered By: Lionel Whitney on 02-06-2022 Platelet mean volume (Bld) [Entitic vol] 8.4 fL 6.6-10.1 [facility] Platelet poor plasma interna tional normalized ratio (INR) by coagulation assay (relatOrdered By: Lionel Whitney on 02-06-2022 INR Coag (PPP) [Relative time] 1.0 {INR} [facility] Comment on above: INR Therapeutic Rang [...] 02-06-2022 Platelets (Bld) [#/Vol] 248 10*3/uL 150-450 [facility] RBC Auto (Bld) [#/Vol]Ordere d By: Lionel Whitney on 02-06-2022 RBC (Bld) [#/Vol] 4.45 10*6/uL 3.90-5.60 [facility] Serum or plasma calcium eliezer urement (mass/volume)Ordered By: Lionel Whitney on 02-06-2022 Calcium [Mass/Vol] 9.7 mg/dL 8.2-10.2 [facility] Serum or plasma chloride sammy surement (moles/volume)Ordered By: Lionel Whitney on 02-06-2022 Chloride [Moles/Vol] 99 mmol/L 95-114 [facility] Serum or plasma glucose eliezer urement (mass/volume)Ordered By: Lionel Whitney on 02-06-2022 Glucose [Mass/Vol] 99 mg/dL 70-100 [facility] Comment on above: ADA recommended refe rence range Random Glucose Reference Range is dependent on time and content of last meal. Glucose of more than 200 mg/dL in a nonstressed, ambulatory subject supports the diagnosis of Diabetes Mellitus. Serum or plasma potassium me asurement (moles/volume)Ordered By: Lionle Whitney on 02-06-2022 Potassium [Moles/Vol] 4.4 mmol/L 3.5-5.1 [facility] Serum or plasma sodium measu rement (moles/volume)Ordered By: Lionel Whitney on 02-06-2022 Sodium [Moles/Vol] 135 mmol/L 136-146 [facility] Serum or plasma total carbon dioxide measurement (moles/volume)Ordered By: Lionel Whitney on 02-06-2022 CO2 [Moles/Vol] 26.2 mmol/L 22.0-30.0 [facility] Serum or plasma urea nitroge n measurement (mass/volume)Ordered By: Lionel Whitney on 02-06-2022 Urea nitrogen [Mass/Vol] 20 mg/dL 9-23 [facility] COVID-19 Positive/NegativeOr dered By: Lionel Whitney on 10-27-2021 SARS-CoV-2 (COVID-19) N gene REX+probe Ql (Resp) Negative Negative [facility] Comment on above: Testing for SARS-CoV -2 by RT-PCR This test was developed and its performance characteristics determined by [employer] and validated at the [facility]. This test has not been FDA [...] aPTT Coag (PPP) [Time] 36.2 s 25.1-36.5 [facility] Basophils Auto (Bld) [#/Vol] Ordered By: Lionel Whitney on 10-17-2021 Basophils (Bld) [#/Vol] 0.0 10*3/uL 0.0-0.2 [facility] Basophils/100 WBC Auto (Bld) Ordered By: Lionel Whitney on 10-17-2021 Basophils/100 WBC (Bld) 0.6 % [facility] Blood hemoglobin measurement (mass/volume)Ordered By: Lionel Whitney on 10-17-2021 Hemoglobin (Bld) [Mass/Vol] 13.6 g/dL 13.0-17.0 [facility] Blood leukocytes automated c ount (number/volume)Ordered By: Lionel Whitney on 10-17-2021 WBC (Bld) [#/Vol] 5.9 10*3/uL 4.5-11.0 [facility] Creatinine and Glomerular fi ltration rate.predicted panel (S/P/Bld)Ordered By: Lionel Whitney on 10-17-2021 Creatinine [Mass/Vol] 0.96 mg/dL 0.64-1.27 [facility] Eosinophils Auto (Bld) [#/Vo l]Ordered By: Lionel Whitney on 10-17-2021 Eosinophils (Bld) [#/Vol] 0.1 10*3/uL 0.0-0.45 [facility] Eosinophils/100 WBC Auto (Bl d)Ordered By: Lionel Whitney on 10-17-2021 Eosinophils/100 WBC (Bld) 2.0 % [facility] Erythrocyte distribution wid th Auto (RBC) [Ratio]Ordered By: Lionel Whitney on 10-17-2021 Erythrocyte distribution width (RBC) [Ratio] 14.5 % 12.0-14.8 [facility] Estimated glomerular filtrat ion rate (GFR) non- AmericanOrdered By: Lionel Whitney on 10-17-2021 GFR/1.73 sq M.predicted among non-blacks MDRD (S/P/Bld) [Vol rate/Area] > 60 mL/Min [facility] Hematocrit Auto (Bld) [Volum e fraction]Ordered By: Lionel Whitney on 10-17-2021 Hematocrit (Bld) [Volume fraction] 41.5 % 38.8-50.0 [facility] Laboratory - CoagulationOrde red By: Lionel Whitney on 10-17-2021 PT Coag (PPP) [Time] 11.0 s 9.0-12.9 [facility] Laboratory - Hematology and Cell countsOrdered By: Lionel Whitney on 10-17-2021 Nucleated RBC/100 WBC (Bld) [Ratio] 0.0 % 0-0.5 [facility] Lymphocytes Auto (Bld) [#/Vo l]Ordered By: Lionel Whitney on 10-17-2021 Lymphocytes (Bld) [#/Vol] 1.6 10*3/uL 1.00-4.8 [facility] Lymphocytes/100 WBC Auto (Bl d)Ordered By: Lionel Whitney on 10-17-2021 Lymphocytes/100 WBC (Bld) 26.8 % [facility] MCH Auto (RBC) [Entitic mass ]Ordered By: Lionel Whitney on 10-17-2021 MCH (RBC) [Entitic mass] 29.3 pg 27.5-35.2 [facility] MCHC Auto (RBC) [Mass/Vol]Or dered By: Lionel Whitney on 10-17-2021 MCHC (RBC) [Mass/Vol] 32.7 g/dL 32.5-35.6 [facility] MCV Auto (RBC) [Entitic vol] Ordered By: Lionel Whitney on 10-17-2021 MCV (RBC) [Entitic vol] 89.8 fL 83.5-101 [facility] Monocytes Auto (Bld) [#/Vol] Ordered By: Lionel Whitney on 10-17-2021 Monocytes (Bld) [#/Vol] 0.6 10*3/uL 0.0-0.8 [facility] Monocytes/100 WBC Auto (Bld) Ordered By: Lionel Whitney on 10-17-2021 Monocytes/100 WBC (Bld) 10.6 % [facility] Neutrophils Auto (Bld) [#/Vo l]Ordered By: Lionel Whitney on 10-17-2021 Neutrophils (Bld) [#/Vol] 3.5 10*3/uL 1.8-7.7 [facility] Neutrophils/100 WBC Auto (Bl d)Ordered By: Lionel Whitney on 10-17-2021 Neutrophils/100 WBC (Bld) 60.0 % [facility] No Panel InformationOrdered By: Lionel Whitney on 10-17-2021 Estimated GFR () > 60 mL/Min [facility] Comment on above: GFR estimated refere nce range: According to KDOQI guidelines, <60 ml/min/1.73m2 is sufficient to diagnose a patient with chronic kidney disease. Pharmacy Creatinine Clearance (Chem N/A [facility] Platelet mean volume Auto (B ld) [Entitic vol]Ordered By: Lionel Whitney on 10-17-2021 Platelet mean volume (Bld) [Entitic vol] 8.3 fL 6.6-10.1 [facility] Platelet poor plasma interna tional normalized ratio (INR) by coagulation assay (relatOrdered By: Lionel Whitney on 10-17-2021 INR Coag (PPP) [Relative time] 1.0 {INR} [facility] Comment on above: INR Therapeutic Rang [...] 10-17-2021 Platelets (Bld) [#/Vol] 249 10*3/uL 150-450 [facility] RBC Auto (Bld) [#/Vol]Ordere d By: Lionel Whitney on 10-17-2021 RBC (Bld) [#/Vol] 4.62 10*6/uL 3.90-5.60 [facility] Serum or plasma calcium eliezer urement (mass/volume)Ordered By: Lionel Whitney on 10-17-2021 Calcium [Mass/Vol] 9.7 mg/dL 8.2-10.2 [facility] Serum or plasma chloride sammy surement (moles/volume)Ordered By: Lionel Whitney on 10-17-2021 Chloride [Moles/Vol] 101 mmol/L 95-114 [facility] Serum or plasma glucose eliezer urement (mass/volume)Ordered By: Lionel Whitney on 10-17-2021 Glucose [Mass/Vol] 87 mg/dL 70-100 [facility] Comment on above: ADA recommended refe rence range Random Glucose Reference Range is dependent on time and content of last meal. Glucose of more than 200 mg/dL in a nonstressed, ambulatory subject supports the diagnosis of Diabetes Mellitus. Serum or plasma potassium me asurement (moles/volume)Ordered By: Lionel Whitney on 10-17-2021 Potassium [Moles/Vol] 4.4 mmol/L 3.5-5.1 [facility] Serum or plasma sodium measu rement (moles/volume)Ordered By: Lionel Whitney on 10-17-2021 Sodium [Moles/Vol] 136 mmol/L 136-146 [facility] Serum or plasma total carbon dioxide measurement (moles/volume)Ordered By: Lionel Whitney on 10-17-2021 CO2 [Moles/Vol] 25.6 mmol/L 22.0-30.0 [facility] Serum or plasma urea nitroge n measurement (mass/volume)Ordered By: Lionel Whitney on 10-17-2021 Urea nitrogen [Mass/Vol] 18 mg/dL 9-23 [facility] Vital Signs Date Time Vital Sign Value Performing Clinician Facility 08-16-2024 13:09-0500 Body temperature 98.2 [degF] Norberto Andrade MD Work Phone: [facility] 08-16-2024 13:09-0500 Body weight 87.5 kg Norberto Andrade MD Work Phone: [facility] 08-16-2024 13:09-0500 Diastolic blood pressure 83 mm[Hg] Norberto Andrade MD Work Phone: [facility] 08-16-2024 13:09-0500 Heart rate 86 /min Norberto Andrade MD Work Phone: [facility] 08-16-2024 13:09-0500 Respiratory rate 16 /min Norberto Andrade MD Work Phone: [facility] 08-16-2024 13:09-0500 SaO2% (BldA) [Mass fraction] 97 % Norberto Andrade MD Work Phone: [facility] 08-16-2024 13:09-0500 Systolic blood pressure 148 mm[Hg] Norberto Andrade MD Work Phone: [facility] 08-16-2024 13:00-0500 Body temperature 97.81 [degF] Chair Fine Work Phone: [facility] 08-16-2024 13:00-0500 Diastolic blood pressure 85 mm[Hg] Chair James Work Phone: [facility] 08-16-2024 13:00-0500 Heart rate 90 /min Chair Fine Work Phone: [facility] 08-16-2024 13:00-0500 SaO2% (BldA) [Mass fraction] 98 % Chair Fine Work Phone: [facility] 08-16-2024 13:00-0500 Systolic blood pressure 143 mm[Hg] Chair Fine Work Phone: [facility] 08-09-2024 13:15-0500 Diastolic blood pressure 90 mm[Hg] Chair James Work Phone: [facility] Comment on above: [facility]-09-2024 13:15-0500 Systolic blood pressure 167 mm[Hg] Chair James Work Phone: [facility] Comment on above: Pt reports he is asymptomatic and sees [facility] 08-09-2024 13:10-0500 Body temperature 97.9 [degF] Chair James Work Phone: [facility] 08-09-2024 13:10-0500 Heart rate 87 /min Chair Fine Work Phone: [facility] 08-09-2024 13:10-0500 Respiratory rate 18 /min Chair Fine Work Phone: [facility] 08-09-2024 13:10-0500 SaO2% (BldA) [Mass fraction] 97 % Chair Fine Work Phone: [facility] 08-02-2024 08:33-0500 Body temperature 97.5 [degF] Norberto Andrade MD Work Phone: [facility] 08-02-2024 08:33-0500 Body weight 88.5 kg Norberto Andrade MD Work Phone: [facility] 08-02-2024 08:33-0500 Diastolic blood pressure 79 mm[Hg] Norberto Andrade MD Work Phone: [facility] 08-02-2024 08:33-0500 Heart rate 80 /min Norberto Andrade MD Work Phone: [facility] 08-02-2024 08:33-0500 Respiratory rate 18 /min Norberto Andrade MD Work Phone: [facility] 08-02-2024 08:33-0500 SaO2% (BldA) [Mass fraction] 96 % Norberto Andrade MD Work Phone: [facility] 08-02-2024 08:33-0500 Systolic blood pressure 131 mm[Hg] Norberto Andrade MD Work Phone: [facility] 07-19-2024 10:43-0500 Body temperature 97.2 [degF] Norberto Andrade MD Work Phone: [facility] 07-19-2024 10:43-0500 Body weight 86.7 kg Norberto Andrade MD Work Phone: [facility] 07-19-2024 10:43-0500 Diastolic blood pressure 74 mm[Hg] Norberto Andrade MD Work Phone: [facility] 07-19-2024 10:43-0500 Heart rate 81 /min Norberto Andrade MD Work Phone: [facility] 07-19-2024 10:43-0500 Respiratory rate 18 /min Norberto Andrade MD Work Phone: [facility] 07-19-2024 10:43-0500 SaO2% (BldA) [Mass fraction] 97 % Norberto Andrade MD Work Phone: [facility] 07-19-2024 10:43-0500 Systolic blood pressure 121 mm[Hg] Norberto Andrade MD Work Phone: [facility] 07-17-2024 11:17-0500 Diastolic blood pressure 80 mm[Hg] Cady Espinosa MD Work Phone: [facility] 07-17-2024 11:17-0500 Systolic blood pressure 142 mm[Hg] Cady Espinosa MD Work Phone: [facility] 07-17-2024 10:51-0500 Body height 182.9 cm Cady Espinosa MD Work Phone: [facility] 07-17-2024 10:51-0500 Body mass index (BMI) [Ratio] 26.5 kg/m2 Cady Espinosa MD Work Phone: [facility] 07-17-2024 10:51-0500 Body weight 88.63 kg Cady Espinosa MD Work Phone: [facility] 07-17-2024 10:51-0500 Heart rate 72 /min Cady Espinosa MD Work Phone: [facility] 07-12-2024 09:50-0500 Blood Pressure Location Lionel WHITNEY [facility] 07-12-2024 09:50-0500 Diastolic blood pressure 82 mm[Hg] Lionel WHITNEY [facility] 07-12-2024 09:50-0500 Heart rate 70 /min Lionel WHITNEY [facility] 07-12-2024 09:50-0500 Respiratory rate 16 /min Lionel WHITNEY [facility] 07-12-2024 09:50-0500 Systolic blood pressure 132 mm[Hg] Lionel WHITNEY [facility] 05-08-2024 11:49-0500 Diastolic blood pressure 90 mm[Hg] Cady Espinosa MD Work Phone: [facility] 05-08-2024 11:49-0500 Systolic blood pressure 180 mm[Hg] Cady Espinosa MD Work Phone: [facility] 05-08-2024 11:28-0500 Heart rate 67 /min Cady Espinosa MD Work Phone: [facility] 05-08-2024 11:27-0500 Body height 182.9 cm Cady Espinosa MD Work Phone: [facility] 05-08-2024 11:27-0500 Body mass index (BMI) [Ratio] 25.96 kg/m2 Cady Espinosa MD Work Phone: [facility] 05-08-2024 11:27-0500 Body weight 86.82 kg Cady Espinosa MD Work Phone: [facility] 03-28-2024 14:58-0400 Body height 182.88 cm [facility] 03-28-2024 14:58-0400 Body mass index (BMI) [Ratio] 24.7 kg/m2 [facility] 03-28-2024 14:58-0400 Body weight 83 kg [facility] 10-11-2023 15:27-0400 Body height 182.88 cm MD Deandre Monterroso Work Phone: [facility] 10-11-2023 15:27-0400 Body mass index (BMI) [Ratio] 25 kg/m2 MD Deandre Monterroso Work Phone: [facility] 10-11-2023 15:27-0400 Body temperature 97.2 [degF] MD Deandre Monterroso Work Phone: [facility] 10-11-2023 15:27-0400 Body weight 83.91 kg MD Deandre Monterroso Work Phone: [facility] 10-11-2023 15:27-0400 Diastolic blood pressure 88 mm[Hg] MD Deandre Monterroso Work Phone: [facility] 10-11-2023 15:27-0400 Heart rate 79 /min MD Deandre Monterroso Work Phone: [facility] 10-11-2023 15:27-0400 Systolic blood pressure 146 mm[Hg] MD Deandre Monterroso Work Phone: [facility] 10-04-2023 10:35-0400 Blood Pressure Location Lionel WHITNEY [facility] 10-04-2023 10:35-0400 Diastolic blood pressure 88 mm[Hg] Lionel WHITNEY [facility] 10-04-2023 10:35-0400 Heart rate 72 /min Lionel WHITNEY [facility] 10-04-2023 10:35-0400 Respiratory rate 16 /min Lionel WHITNEY [facility] 10-04-2023 10:35-0400 Systolic blood pressure 136 mm[Hg] Lionel WHITNEY [facility] 08-12-2023 11:10-0500 Body height 182.88 cm MD Deandre Monterroso Work Phone: [facility] 08-12-2023 11:10-0500 Body mass index (BMI) [Ratio] 24.3 kg/m2 MD Deandre Monterroso Work Phone: [facility] 08-12-2023 11:10-0500 Body weight 81.19 kg MD Deandre Monterroso Work Phone: [facility] 02-10-2023 14:16-0400 Blood Pressure Location Qamar BOWERSL [facility] 02-10-2023 14:16-0400 Diastolic blood pressure 80 mm[Hg] Qamar NILL [facility] 02-10-2023 14:16-0400 Heart rate 70 /min Qamar NILL [facility] 02-10-2023 14:16-0400 Respiratory rate 16 /min Qamar B[facility]ERS[facility] 02-10-2023 14:16-0400 Systolic blood pressure 124 mm[Hg] Qamar BOWERSL [facility] 12-03-2022 10:20-0400 Body height 182.88 cm Zoran Chavez Other [employer] Other 12-03-2022 10:20-0400 Body mass index (BMI) [Ratio] 25.49 kg/m2 Zoran Chavez Other [employer] Other 12-03-2022 10:20-0400 Body weight 85.28 kg Zoran Chavez Other [employer] Other 10-22-2022 10:20-0400 Body height 182.88 cm Zoran Chavez Other [employer] Other 10-22-2022 10:20-0400 Body mass index (BMI) [Ratio] 25.63 kg/m2 Zoran Chavez Other [employer] Other 10-22-2022 10:20-0400 Body weight 85.73 kg Zoran Chavez Other [employer] Other 10-22-2022 10:20-0400 Diastolic blood pressure 80 mm[Hg] Zoran Chavez Other [facility] [employer] Other 10-22-2022 10:20-0400 Systolic blood pressure 110 mm[Hg] Zoran Chavez Other [facility] [employer] Other 02-24-2022 10:43-0400 Blood Pressure Location Lionel WHITNEY [facility] 02-24-2022 10:43-0400 Diastolic blood pressure 80 mm[Hg] Lionel WHITNEY [facility] 02-24-2022 10:43-0400 Heart rate 65 /min Lioneljameel WHITNEY [facility] 02-24-2022 10:43-0400 Respiratory rate 16 /min Lionel WHITNEY [facility] 02-24-2022 10:43-0400 Systolic blood pressure 140 mm[Hg] Lionel WHITNEY [facility] 02-17-2022 15:15-0400 Diastolic blood pressure 83 mm[Hg] MD Deandre Monterroso Work Phone: [facility] 02-17-2022 15:15-0400 Heart rate 58 /min MD Deandre Monterroso Work Phone: [facility] 02-17-2022 15:15-0400 Respiratory rate 16 /min MD Deandre Monterroso Work Phone: [facility] 02-17-2022 15:15-0400 SaO2% (BldA) [Mass fraction] 95 % MD Deandre Monterroso Work Phone: [facility] 02-17-2022 15:15-0400 Systolic blood pressure 166 mm[Hg] MD Deandre Monterroso Work Phone: [facility] 02-17-2022 14:30-0400 Body height 182.88 cm MD Deandre Monterroso Work Phone: [facility] 02-17-2022 14:30-0400 Body mass index (BMI) [Ratio] 26.2 kg/m2 MD Deandre Monterroso Work Phone: [facility] 02-17-2022 14:30-0400 Body weight 87.7 kg MD Deandre Monterroso Work Phone: [facility] 02-17-2022 14:17-0400 Body temperature 97.6 [degF] MD Deandre Monterroso Work Phone: [facility] 02-17-2022 13:52-0400 Inhaled oxygen flow rate 10 L/min MD Deandre Monterroso Work Phone: [facility] 10-17-2021 11:42-0400 Body height 180.34 cm MD Deandre Monterroso Work Phone: [facility] 10-17-2021 11:42-0400 Body mass index (BMI) [Ratio] 27 kg/m2 MD Deandre Monterroso Work Phone: [facility] 10-17-2021 11:42-0400 Body temperature 98.4 [degF] MD Deandre Monterroso Work Phone: [facility] 10-17-2021 11:42-0400 Body weight 88 kg MD Deandre Monterroso Work Phone: [facility] 10-17-2021 11:42-0400 Diastolic blood pressure 90 mm[Hg] MD Deandre Monterroso Work Phone: [facility] 10-17-2021 11:42-0400 Heart rate 64 /min MD Deandre Monterroso Work Phone: [facility] 10-17-2021 11:42-0400 SaO2% (BldA) [Mass fraction] 100 % MD Deandre Monterroso Work Phone: [facility] 10-17-2021 11:42-0400 Systolic blood pressure 172 mm[Hg] MD Deandre Monterroso Work Phone: [facility] Encounters Encounter Date Encounter Type Care Provider Facility Start: 08-16-2024 End: 08-16-2024 Nursing evaluation of patient and report Bruno Trevino Work Phone: Hematology/Oncology Comment on above: High risk medication use (Primary Dx) Start: 08-16-2024 End: 08-16-2024 ambulatory Chair 23 James Work Phone: Hematology/Oncology Comment on above: Malignant neoplasm o f urinary bladder, unspecified site (HCC) (Primary Dx) Start: 08-16-2024 End: 08-16-2024 Office outpatient visit 25 minutes Norberto Andrade MD Work Phone: Hematology/Oncology Comment on above: Malignant neoplasm o f urinary bladder, unspecified site (HCC) (Primary Dx) Start: 08-09-2024 End: 08-09-2024 Nursing evaluation of patient and report Bruno Trevino Work Phone: Hematology/Oncology Comment on above: High risk medication use (Primary Dx) Start: 08-09-2024 End: 08-09-2024 ambulatory Chair 23 James Work Phone: Hematology/Oncology Comment on above: Malignant neoplasm o f urinary bladder, unspecified site (HCC) (Primary Dx) Start: 08-07-2024 End: 08-07-2024 Telephone encounter Ingrid Ugalde RN Work Phone: Hematology/Oncology Comment on above: Care Coordination (C 1D1 treatment follow up call) Start: 08-07-2024 End: 08-07-2024 ambulatory Tamiko Landa MD Facility:[facility] Start: 08-02-2024 End: 08-02-2024 Nursing evaluation of patient and report Bruno Trevino Work Phone: Hematology/Oncology Comment on above: Malignant neoplasm o f urinary bladder, unspecified site (HCC) (Primary Dx) Start: 08-02-2024 End: 08-02-2024 ambulatory Chair Derrell [place] Work Phone: Hematology/Oncology Comment on above: Malignant neoplasm o f urinary bladder, unspecified site (HCC) (Primary Dx) Start: 08-02-2024 End: 08-02-2024 Office outpatient visit 25 minutes Norberto Andrade MD Work Phone: Hematology/Oncology Comment on above: Malignant neoplasm o f urinary bladder, unspecified site (HCC) (Primary Dx) Start: 08-01-2024 End: 08-01-2024 Telephone encounter Financial Navigator Enrique Work Phone: Hematology/Oncology Comment on above: Benefits Investigati [...] feel free to stop in or call [phone] for any questions you may have. ) Start: 07-26-2024 End: 07-26-2024 Orders Only Estefani Vargas [facility] Work Phone: Hematology/Oncology Comment on above: Malignant neoplasm o f urinary bladder, unspecified site (HCC) (Primary Dx) Start: 07-19-2024 End: 07-19-2024 ambulatory NORBERTO ANDRADE Facility:[facility] Start: 07-19-2024 End: 07-19-2024 Office outpatient new 60 minutes Norberto Andrade MD Work Phone: Hematology/Oncology Comment on above: Malignant neoplasm o f urinary bladder, unspecified site (HCC) (Primary Dx) Start: 07-18-2024 End: 07-18-2024 Chart abstracting Norberto Andrade MD Work Phone: Hematology/Oncology Start: 07-17-2024 End: 07-17-2024 Office outpatient visit 25 minutes Cady Espinosa MD Work Phone: [facility] Comment on above: Uncontrolled hyperte nsion; Unequal blood pressure in upper extremities; Mixed hyperlipidemia; Former smoker; Bilateral carotid artery stenosis; History of prostate cancer; Hx of bladder cancer; Medication course changed; Chest pressure; Shortness of breath; BMI 26.0-26.9,adult Start: 07-17-2024 End: 07-17-2024 ambulatory [facility] Ambulatory Start: 07-12-2024 End: 07-12-2024 ambulatory Lionel WHITNEY Facility: [facility] Start: 07-12-2024 End: 07-12-2024 Patient encounter procedure Lionel WHITNEY [facility] Start: 07-06-2024 End: 07-06-2024 ambulatory Deandre Monterroso MD Work Phone: [facility] Work Phone: Start: 07-06-2024 End: 07-06-2024 Departed Referred Deandre Monterroso MD Work Phone: [facility] Start: 07-06-2024 End: 07-06-2024 ambulatory Lionel WHITNEY Facility:[id number] Start: 07-03-2024 End: 07-03-2024 ambulatory Tamiko Landa MD Facility: [facility] Start: 06-09-2024 End: 06-09-2024 Subsequent hospital visit by physician Tania [place] Echo/Vasc Room 2 [facility] Comment on above: Left carotid bruit; Unequal blood pressure in upper extremities Former smoker; Shortness of breath Start: 06-09-2024 End: 06-09-2024 ambulatory [facility] Start: 06-05-2024 End: 06-05-2024 ambulatory Tamiko Landa MD Facility:[facility] Start: 05-29-2024 End: 05-29-2024 ambulatory Tamiko Landa MD Facility:[facility] Start: 05-22-2024 End: 05-22-2024 Lab Drop off Lionel WHITNEY [facility] Start: 05-22-2024 End: 05-22-2024 ambulatory Lionel WHITNEY [facility] Start: 05-22-2024 End: 05-22-2024 Patient encounter procedure Lionel WHITNEY [facility] Start: 05-09-2024 End: 05-09-2024 ambulatory Lionel WHITNEY [facility] Start: 05-09-2024 End: 05-09-2024 Patient encounter procedure Lionel WHITNEY [facility] Start: 05-08-2024 End: 05-08-2024 Office consultation new/estab patient 60 min Cady Espinosa MD Work Phone: [facility] Comment on above: Unequal blood pressu re in upper extremities; Uncontrolled hypertension; Shortness of breath; Mixed hyperlipidemia; History of prostate cancer; Hx of bladder cancer; History of fractured rib; Former smoker; BMI 25.0-25.9,adult; Medication course changed Start: 05-08-2024 End: 05-08-2024 ambulatory [facility] Amb[facility] Start: 04-10-2024 End: 04-10-2024 ambulatory Tamiko Landa MD Facility: [facility] Start: 03-28-2024 End: 03-28-2024 ambulatory [facility] Work Phone: Start: 03-28-2024 End: 03-28-2024 Patient encounter procedure [facility] Neurosurgery Work Phone: Start: 03-27-2024 End: 03-27-2024 ambulatory Tamiko Landa MD Facility: [facility] Start: 10-26-2023 End: 10-26-2023 ambulatory Lionel WHITNEY [facility] Start: 10-26-2023 End: 10-26-2023 Patient encounter procedure Lionel WHITNEY [facility] Start: 10-11-2023 End: 10-11-2023 ambulatory MD Deandre Monterroso Work Phone: [facility] Work Phone: Start: 10-11-2023 End: 10-11-2023 Patient encounter procedure MD Deandre Monterroso Work Phone: [facility] Infectious Disease Work Phone: Start: 10-04-2023 End: 10-04-2023 ambulatory Lionel WHITNEY Facility:[facility] Start: 10-04-2023 End: 10-04-2023 Patient encounter procedure Lionel WHITNEY [facility] Start: 09-30-2023 End: 09-30-2023 ambulatory KELLY Higginbotham ORTIZ Not Available Start: 09-09-2023 End: 09-09-2023 ambulatory VASU A FROYLAN Not Available Start: 08-28-2023 End: 08-28-2023 Patient encounter procedure MD Deandre Monterroso Work Phone: [facility] [place] Work Phone: Start: 08-28-2023 End: 08-28-2023 ambulatory Deandre Monterroso Facility:[facility] Start: 08-12-2023 End: 08-12-2023 Patient encounter procedure MD Deandre Monterroso Work Phone: [facility] [place] Work Phone: Start: 08-12-2023 End: 08-12-2023 ambulatory MD Deandre Monterroso Work Phone: [facility] Work Phone: Start: 08-12-2023 End: 08-12-2023 ambulatory MD Deandre Monterroso Work Phone: [facility] Work Phone: Start: 08-12-2023 End: 08-12-2023 Patient encounter procedure MD Deandre Monterroso Work Phone: [facility] Neurosurgery Work Phone: Start: 04-27-2023 End: 04-27-2023 Patient encounter procedure Lionel WHITNEY [facility] Start: 02-10-2023 End: 02-10-2023 Patient encounter procedure Qamar SMITH [facility] Start: 01-05-2023 End: 01-05-2023 Patient encounter procedure Lionel WHITNEY [facility] Start: 01-01-2023 End: 01-01-2023 ambulatory MD Deandre Monterroso Work Phone: [facility] Work Phone: Start: 01-01-2023 End: 01-01-2023 Patient encounter procedure MD Deandre Monterroso Work Phone: [facility] [place] Work Phone: Start: 12-03-2022 End: 12-03-2022 ambulatory Zoran Chavez [facility] Other Start: 12-03-2022 Office outpatient vi sit 15 minutes Zoran Chavez [facility] Neurosurgery Start: 11-20-2022 ambulatory ANDRIUS GIEDRAITIS Faci lity:[facility] Start: 10-28-2022 End: 10-29-[address] NELLY HERRERA Facility:[facility] Start: 10-27-2022 End: 11-18-[address] ZORAN CHAVEZ Facility:[facility] Start: 10-23-2022 End: 10-24-[address] ZORAN CHAVEZ Facility:[facility] Start: 10-22-2022 End: 10-22-2022 ambulatory Zoran Chavez [facility] Other Start: 10-22-2022 Office outpatient vi sit 15 minutes Zoran Chavez [facility] Neuro[facility] Start: 10-05-2022 End: 10-06-[address] DEANDRE MONTERROSO . Facility:[facility] Start: 09-24-2022 End: 09-25-[address] DEANDRE MONTERROSO . Facility:[facility] Start: 09-21-2022 End: 09-22-[address] LIONEL WHITNEY . Facility:[facility] Start: 09-21-2022 End: 09-21-2022 Patient encounter procedure Lionel WHITNEY [facility] Start: 08-19-2022 End: 08-20-[address] LIONEL WHITNEY . Facility:[facility] Start: 08-17-2022 End: 08-17-2022 Patient encounter procedure Lionel WHITNEY [facility] Start: 08-04-2022 End: 08-05-[address] DEANDRE MONTERROSO . Facility:[facility] Start: 07-28-2022 End: 07-29-[address] DEANDRE MONTERROSO . Facility:[facility] Start: 07-23-2022 End: 07-23-[address] LIONEL WHITNEY . Facility:[facility] Start: 07-20-2022 End: 07-20-2022 Patient encounter procedure Lionel WHITNEY [facility] Start: 07-07-2022 End: 07-07-2022 Patient encounter procedure Lionel WHITNEY [facility] Start: 06-30-2022 End: 07-01-[address] DEANDRE MONTERROSO . Facility:[facility] Start: 06-04-2022 End: 06-04-[address] DEANDRE MONTERROSO . Facility:[facility] Start: 05-25-2022 End: 05-26-[address] DEANDRE MONTERROSO . Facility:[facility] Start: 05-18-2022 End: 05-18-2022 Patient encounter procedure Lionel WHITNEY [facility] Start: 04-27-2022 End: 04-28-[address] DEANDRE MONTERROSO . Facility:[facility] Start: 04-18-2022 End: 04-18-[address] FELICIA GALDAMEZ . Facility:[facility] Start: 04-15-2022 End: 04-15-2022 Patient encounter procedure Lionel WHITNEY [facility] Start: 03-26-2022 End: 03-26-[address] LIONEL WHITNEY . Facility:[facility] Start: 03-12-2022 End: 03-13-[address] DEANDRE MONTERROSO . Facility:[facility] Start: 03-09-2022 End: 03-09-2022 Patient encounter procedure Lionel WHITNEY [facility] Start: 02-27-2022 End: 02-27-2022 Lab Drop off Lionel WHITNEY [facility] Start: 02-27-2022 End: 02-27-2022 Patient encounter procedure Lionel WHITNEY [facility] Start: 02-24-2022 End: 02-24-2022 Patient encounter procedure Lionel WHITNEY [facility] Start: 02-17-2022 End: 02-17-2022 Admission to same day surgery center MD Deandre Monterroso Work Phone: [facility] Start: 02-13-2022 End: 02-13-2022 Patient encounter procedure MD Deandre Monterroso Work Phone: [facility] Start: 02-06-2022 End: 02-06-2022 Patient encounter procedure MD Deandre Monterroso Work Phone: [facility] Start: 11-11-2021 End: 11-11-2021 Patient encounter procedure Lionel WHITNEY [facility] Start: 11-05-2021 End: 11-05-2021 Patient encounter procedure Lionel WHITNEY [facility] Start: 10-29-2021 End: 10-29-2021 Admission to same [facility] surgery center MD Deandre Monterroso Work Phone: [facility] Start: 10-27-2021 End: 10-27-2021 Patient encounter procedure MD Deandre Monterroso Work Phone: [facility] Start: 10-17-2021 End: 10-17-2021 Patient encounter procedure MD Deandre Monterroso Work Phone: [facility] Procedures Date Procedure Procedure Detail Performing Clinician Start: 08-16-2024 Urnls dip stick/tabl et rgnt auto w/o microscopy [facility] Provider Start: 08-09-2024 Urnls dip stick/tabl et rgnt auto w/o microscopy [facility] Provider Start: 08-02-2024 Urnls dip stick/tabl et rgnt [...] above: Performed By: #### P SAD #### [facility] [address] [place] [address] Dr. Johnna Dixon Start: 02-17-2022 Transurethral resect [...] WHITNEY Comment on above: had recently at [facility] Start: 05-21-2014 Colonoscopy Qamar DELANO DOSS Start: 06-21-2010 Complete repair of r otator cuff Lionel WHITNEY Comment on above: right Start: 06-21-1998 Shoulder reconstruction Lionel WHITNEY Comment on above: left possibly a scre w in there per pt Start: 06-21-1964 Appendectomy Lionel STERLING Arthroplasty of the ankle Jose Alfredo santiago WHITNEY Comment on above: 1990 Arthroscopy of knee Lionel WHITNEY Klippel-Feil sequenc e (disorder) Lionel WHITNEY Plan of Treatment Date Care Activity Detail Author Start: 09-26-2028 DTaP/Tdap/Td Vaccines (3 - Td or Tdap) DTaP/Tdap/Td Vaccines (3 - Td or Tdap) [facility] Start: 09-26-2028 Urine microalbumin profile DTaP,Tdap,Td Vaccine (3 - Td or Tdap) [facility] Start: 07-26-2027 Diabetes Screening Diabetes Screening [facility] Start: 2026 RSV Vaccine (1 - 1-dose 75+ series) RSV Vaccine (1 - 1-dose 75+ series) [facility] Start: 01-01-2025 End: 01-01-2025 Patient encounter procedure 01/01/2025 10:45 AM EDT Office Visit [facility] [address] [facility] [address] [place] [id number] Cady Espinosa MD [address] [place] [address] [facility] Start: 10-09-2024 ambulatory Ambulatory Facility:[facility] Start: 09-13-2024 End: 09-13-2024 Nursing evaluation of patient and report 09/13/2024 2:00 PM EDT Nurse Visit Hematology/Oncology [address] [facility] [place] [address] Bruno Trevino Nurse Enrique [address] [address] UA to rule og UTI Hematology/Oncology Comment on above: UA to rule og UTI Start: 09-13-2024 End: 09-13-2024 ambulatory 09/13/2024 1:00 PM EDT Infusion Center Hematology/Oncology [address] [facility] [place] [address] [facility] Hematology/Oncology Comment on above: [facility] Start: 09-13-2024 End: 09-13-2024 Follow-up encounter 09/13/2024 1:00 PM EDT Visit (SP) Office Hematology/Oncology [address] [place] [address] Norberto Andrade MD [address] [facility] [place] [address] 4 week lab follow up w/ [facility] Hematology/Oncology Comment on above: 4 week lab follow up w/ BCG Start: 09-13-2024 End: 09-13-2024 Patient encounter procedure 09/13/2024 12:45 PM EDT Office Visit [facility] [address] [place] [address] 4 week lab follow up w/ BCG [facility] Comment on above: 4 week lab follow up w/ BCG Start: 09-06-2024 End: 09-06-2024 Nursing evaluation of patient and report 09/06/2024 2:00 PM EDT Nurse Visit Hematology/Oncology [address] [facility] [place] [address] Bruno Trevino Nurse Enrique [address] [place] [address] UA to rule og UTI Hematology/Oncology Comment on above: UA to rule og UTI Start: 09-06-2024 End: 09-06-2024 ambulatory 09/06/2024 1:00 PM EDT [facility] Hematology/Oncology [address] [place] [address] New start Intravesical [facility] Hematology/Oncology Comment on above: New start Intravesical [facility] Start: 09-01-2024 End: 09-01-2024 Patient encounter procedure 09/01/2024 1:15 PM EDT Appointment Radiology Pet [facility] [address] [address] CT CAP W IV Radiology Pet CT Comment on above: CT CAP W IV Start: 08-31-2024 End: 08-31-2024 Patient encounter procedure [facility] Start: 08-31-2024 End: 08-31-2024 Patient encounter procedure [facility] Start: 08-30-2024 End: 08-30-2024 Nursing evaluation of patient and report 08/30/2024 2:30 PM EDT Nurse Visit Hematology/Oncology [address] [address] Bruno Trevino Nurse Enrique [address] [place] [address] UA to rule og UTI Hematology/Oncology Comment on above: UA to rule og UTI Start: 08-30-2024 End: 09-15-2025 CT Abdomen and Pelvis W contrast IV CT ABD/PEL W IVCON Radiology Routine Malignant neoplasm of urinary bladder, unspecified site (HCC) Expected: 08/30/2024, Expires: 09/15/2025 [facility] Work Phone: Comment on above: Expected: 08/30/2024, Expires: Start: 08-30-2024 End: 09-15-2025 CT Chest W contrast IV CT CHEST W IVCON Radiology Routine Malignant neoplasm of urinary bladder, unspecified site (HCC) Expected: 08/30/2024, Expires: 09/15/2025 [facility] Comment on above: Expected: 08/30/2024, Expires: Start: 08-30-2024 End: 08-30-2024 ambulatory Hematology/Oncology Comment on above: New start Intravesical BCG BCG Start: 08-23-2024 End: 08-23-2024 Nursing evaluation of patient and report Hematology/Oncology Comment on above: UA to rule og UTI UA to rule out UTI Start: 08-23-2024 End: 08-23-2024 ambulatory Hematology/Oncology Comment on above: New start Intravesical BCG BCG Start: 08-16-2024 End: 08-16-2024 Nursing evaluation of patient and report Hematology/Oncology Comment on above: UA to rule og UTI UA to rule out UTI ( no orders) Start: 08-16-2024 End: 11-15-2024 CBC W Auto Differential panel - Blood COMPLETE BLOOD COUNT AND DIFFERENTIAL Lab Routine Malignant neoplasm of urinary bladder, unspecified site (HCC) Expected: 08/16/2024 (Approximate), Expires: 11/15/2024 [facility] Work Phone: Comment on above: Expected: 08/16/2024 (Approximate), Expi res: 11/15/2024 Start: 08-16-2024 End: 11-15-2024 Comprehensive metabolic 2000 panel - Serum or Plasma COMPREHENSIVE METABOLIC PANEL Lab Routine Malignant neoplasm of urinary bladder, unspecified site (HCC) Expected: 08/16/2024 (Approximate), Expires: 11/15/2024 [facility] Comment on above: Expected: 08/16/2024 (Approximate), Expi res: 11/15/2024 Start: 08-16-2024 End: 11-15-2024 Prostate specific Ag [Mass/volume] in Serum or Plasma PROSTATE-SPECIFIC ANTIGEN DIAGNOSTIC Lab Routine Malignant neoplasm of urinary bladder, unspecified site (HCC) Expected: 08/16/2024 (Approximate), Expires: 11/15/2024 [facility] Comment on above: Expected: 08/16/2024 (Approximate), Expi res: 11/15/2024 Start: 08-16-2024 End: 08-16-2024 ambulatory Hematology/Oncology Comment on above: New start Intravesical BCG BCG Start: 08-16-2024 End: 08-16-2024 Follow-up encounter 08/16/2024 1:00 PM EST Visit (SP) Office Hematology/Oncology [address] [address] Norberto Andrade MD [address] [place] [address] 2 week lab follow up Hematology/Oncology Comment on above: 2 week lab follow up Start: 08-16-2024 End: 08-16-2024 Patient encounter procedure 08/16/2024 12:45 PM EST Office Visit [facility] [address] [place] [address] [place] [address] 2 week lab follow up [facility] Comment on above: 2 week lab follow up Start: 08-09-2024 End: 08-09-2024 Nursing evaluation of patient and report 08/09/2024 2:00 PM EST Nurse Visit Hematology/Oncology [address] [facility] [place] [address] Bruno Trevino Nurse Enrique [address] [address] UA to rule og UTI Hematology/Oncology Comment on above: UA to rule og UTI Start: 08-09-2024 End: 08-09-2024 ambulatory Hematology/Oncology Comment on above: New start Intravesical BCG BCG Start: 08-08-2024 End: 05-08-2025 Alanine aminotransferase [Enzymatic activity/volume] in Serum or Plasma by With P-5'-P Alanine Aminotransferase Lab Routine Mixed hyperlipidemia Expected: 08/08/2024, Expires: 05/08/2025 [facility] Work Phone: Comment on above: Expected: 08/08/2024, Expires: Start: 08-08-2024 End: 05-08-2025 Aspartate aminotransferase [Enzymatic activity/volume] in Serum or Plasma by With P-5'-P Aspartate Aminotransferase Lab Routine Mixed hyperlipidemia Expected: 08/08/2024, Expires: 05/08/2025 [facility] Work Phone: Comment on above: Expected: 08/08/2024, Expires: Start: 08-08-2024 End: 05-08-2025 Lipid 1996 panel - Serum or Plasma Lipid Panel Lab Routine Mixed hyperlipidemia Expected: 08/08/2024, Expires: 05/08/2025 [facility] Work Phone: Comment on above: Expected: 08/08/2024, Expires: Start: 08-02-2024 End: 08-02-2024 Nursing evaluation of patient and report 08/02/2024 9:00 AM EST Nurse Visit Hematology/Oncology [address] [place] [address] Bruno Trevino Nurse Enrique [address] [place] [address] UA to rule og UTI Hematology/Oncology Comment on above: UA to rule og UTI Start: 08-02-2024 End: 08-02-2024 ambulatory 08/02/2024 8:30 AM EST Infusion Center Hematology/Oncology [address] [address] New start Intravesical BCG Hematology/Oncology Comment on above: New start Intravesical BCG Start: 08-02-2024 End: 08-02-2024 Follow-up encounter 08/02/2024 8:30 AM EST Visit (SP) Office Hematology/Oncology [address] [address] Norberto Andrade MD [address] [address] Follow up Hematology/Oncology Comment on above: Follow up Start: 08-02-2024 End: 08-02-2024 Patient encounter procedure 08/02/2024 8:15 AM EST Office Visit [facility] [address] [place] [address] [place] [address] [address] [facility] Comment on above: lab Start: 07-26-2024 End: 07-26-2024 Nursing evaluation of patient and report 07/26/2024 11:00 AM EST Nurse Visit Hematology/Oncology [address] [place] [address] [place] [address] Ingrid Ugalde RN [address] [address] Chemo Education Hematology/Oncology Comment on above: Chemo Education Start: 07-19-2024 End: 10-18-2024 CBC W Auto Differential panel - Blood COMPLETE BLOOD COUNT AND DIFFERENTIAL Lab Routine Malignant neoplasm of urinary bladder, unspecified site (HCC) Expected: 07/19/2024, Expires: 10/18/2024 [facility] Work Phone: Comment on above: Expected: 07/19/2024, Expires: Start: 07-19-2024 End: 10-18-2024 Comprehensive metabolic 2000 panel - Serum or Plasma COMPREHENSIVE METABOLIC PANEL Lab Routine Malignant neoplasm of urinary bladder, unspecified site (HCC) Expected: 07/19/2024, Expires: 10/18/2024 [facility] Comment on above: Expected: 07/19/2024, Expires: 5 Start: 07-19-2024 End: 07-19-2024 ambulatory 07/19/2024 11:00 AM EST Visit (SP) Office Hematology/Oncology [address] [place] [address] [place] [address] Norberto Andrade MD [address] [place] [address] [place] [address] Lionel Whitney. Dx: Bladder [...] of breath Expected: 07/17/2024 (Approximate), Expires: 07/17/2025 [facility] Work Phone: Comment on above: Expected: 07/17/2024 (Approximate), Expi res: 07/17/2025 Start: 07-17-2024 End: 07-17-2025 Lipid 1996 panel - Serum or Plasma Lipid Panel Lab Routine Uncontrolled hypertension Mixed hyperlipidemia Medication course changed Expected: 07/17/2024 (Approximate), Expires: 07/17/2025 [facility] Work Phone: Comment on above: Expected: 07/17/2024 (Approximate), Expi res: 07/17/2025 Start: 07-17-2024 End: 07-17-2025 NM Heart Perfusion W stress and W radionuclide IV Nuclear Stress Test Cardiac Nuclear Medicine Routine Chest pressure Shortness of breath Expected: 07/17/2024 (Approximate), Expires: 07/17/2025 [facility] Work Phone: Comment on above: Expected: 07/17/2024 (Approximate), Expi res: 07/17/2025 Start: 07-17-2024 End: 07-17-2026 US.doppler Carotid arteries - bilateral Vascular US Carotid Artery Duplex Bilateral Vascular Ultrasound Routine Bilateral carotid artery stenosis Chest pressure Shortness of breath Expected: 07/17/2024 (Approximate), Expires: 07/17/2026 [facility] Service Area Work Phone: Comment on above: Expected: 07/17/2024 (Approximate), Expi res: 07/17/2026 Start: 07-17-2024 End: 07-17-2024 Patient encounter procedure 07/17/2024 10:45 AM EST Office Visit [address] [phone] Cady Espinosa MD [address] [facility] [address] [place] [address] [facility] Start: 06-21-2024 Advance Directive Discussion Advance Directive Discussion [facility] Start: 06-08-2024 End: 06-08-2024 Patient encounter procedure 06/08/2024 10:45 AM EST Appointment [facility] [address] [facility] [address] [place] [address] [facility] Start: 05-15-2024 End: 05-08-2025 Basic metabolic 2000 panel - Serum or Plasma Basic Metabolic Panel Lab Routine Uncontrolled hypertension Expected: 05/15/2024 (Approximate), Expires: 05/08/2025 [facility] Work Phone: Comment on above: Expected: 05/15/2024 (Approximate), Expi res: 05/08/2025 Start: 05-08-2024 End: 05-08-2026 US Heart Transthoracic Transthoracic Echo Complete Echocardiography Routine Former smoker Shortness of breath Expected: 05/08/2024 (Approximate), Expires: 05/08/2026 [facility] Service Area Work Phone: Comment on above: Expected: 05/08/2024 (Approximate), Expi res: 05/08/2026 Start: 02-20-2024 Covid-19 Vaccine ( season) Covid-19 Vaccine ( season) [facility] Start: 02-20-2024 COVID-19 Vaccine ( season) COVID-19 Vaccine ( season) [facility] Start: 02-20-2024 Influenza vaccination Influenza Vaccine (#1) [facility] Start: 08-12-2023 Patient referral [facility] Work Phone: Start: 08-12-2023 X-ray of cervical spine XR cervical spine w flex/ext [facility] Start: 08-12-2023 X-ray of lumbar spine, six views including bending views XR lumbar spine 6V w bending [facility] Start: 08-12-2023 XR Cervical spine Views W flexion and W extension [facility] Start: 08-12-2023 XR Lumbar spine Views [facility] Start: 02-17-2022 End: 02-17-2022 [facility] Work Phone: Start: 02-17-2022 Transurethral resection of bladder neoplasm OR Cysto/TURBT/Bladder Biopsy/Fulg (Not Applicable) [facility] Start: 02-17-2022 End: 02-17-2022 Admission to same day surgery center Departed Surgical Day Care [facility] [place] Start: 02-13-2022 End: 02-13-2022 Patient encounter procedure Departed Clinical [facility] Wjx-Noq-Atwxfgyl Testing Start: 02-03-2016 Abdominal aortic aneurysm screening Abdominal Aortic Aneurysm (AAA) Screening [facility] Start: 2011 RSV High Risk: (Elderly (60+) or Population) (1 - Risk 60-74 years 1-dose series) RSV High Risk: (Elderly (60+) or Population) (1 - Risk 60-74 years 1-dose series) [facility] Start: 2011 RSV Vaccine (1 - Risk 60-74 years 1-dose series) RSV Vaccine (1 - Risk 60-74 years 1-dose series) [facility] Start: 02-03-1996 Diabetes Screening Diabetes Screening [facility] Start: 02-03-1996 Screening for malignant neoplasm of colon [facility] Start: 1986 Lipid panel Lipid Screening [facility] Start: 1969 Anxiety Screening Anxiety Screening [facility] Start: 1969 Depression Screening Depression Screening [facility] Start: 1969 Diabetes mellitus screening Diabetes Screening [facility] Start: 1969 Hepatitis C screening Hepatitis C Screening [facility] Start: 1950 Abdominal aortic aneurysm screening Abdominal Aortic Aneurysm Screening [facility] Start: 1951 Lipid panel Lipid Panel [facility] Start: 1950 Medicare Annual Wellness Visit Medicare Annual Wellness Visit (AWV) [facility] Start: 1950 Screening for malignant neoplasm of colon [facility] Start: 1950 Thyroid stimulating hormone measurement TSH Level [facility] Microbial culture of sputum [facility] MR Cervical spine WO and W contrast IV [facility] Patient referral [facility] Work Phone: UA DIP OB, URINE (POC) UA DIP OB , URINE (POC) Lab Routine Malignant neoplasm of urinary bladder, unspecified site (HCC) 1 Occurrences starting 08/09/2024 [facility] Work Phone: Comment on above: 1 Occurrences starting 08/09/2024 UA DIP, URINE (POC) UA DIP, URIN E (POC) Lab Routine Malignant neoplasm of urinary bladder, unspecified site (HCC) Ordered: 08/02/2024 [facility] Work Phone: Comment on above: Ordered: 08/02/2024 UA DIP, URINE (POC) UA DIP, URIN E (POC) Lab Routine Malignant neoplasm of urinary bladder, unspecified site (HCC) Ordered: 08/09/2024 [facility] Comment on above: Ordered: 08/09/2024 UA DIP, URINE (POC) UA DIP, URIN E (POC) Lab Routine Malignant neoplasm of urinary bladder, unspecified site (HCC) Ordered: 08/16/2024 [facility] Work Phone: Comment on above: Ordered: 08/16/2024 Immunizations Immunization Date Immunization Notes Care Provider aGry francisco 07-13-2023 zoster vaccine recombinant Lionel WHITNEY [facility] 03-23-2023 influenza virus vacc ine, unspecified formulation Lionel WHITNEY [facility] 03-23-2023 zoster vaccine recombinant Lionel WHITNEY [facility] 04-16-2022 SARS-CoV-2 (COVID-19 ) [id number] Qamar SMITH [facility] 03-27-2022 influenza virus vacc ine, unspecified formulation Qamar SMITH [facility] 05-06-2021 COVID-19 mRNA-1273 (Moderna) MD Deandre Monterroso Work Phone: [facility] 09-19-2020 COVID-19 mRNA-1273 (Moderna) MD Deandre Monterroso Work Phone: [facility] Comment on above: Result Comment: 2022: [id number] 08-22-2020 COVID-19 mRNA-1273 (Moderna) MD Deandre Monterroso Work Phone: [facility] Comment on above: Result Comment: 2022: [id number] 06-21-2020 SARS-CoV-2 (COVID-19 ) mRNA-1273 vaccine Lionel WHITNEY [facility] 05-23-2020 influenza virus vacc ine, unspecified formulation Qamar LUIS [facility] 04-03-2020 influenza virus vacc ine, unspecified formulation Qamar BOWERSDmitriy [facility] 05-29-2019 influenza virus vacc ine, unspecified formulation Qamar LIUS [facility] 04-14-2019 influenza, unspecifi ed formulation Qamar LUIS [facility] 09-26-2018 tetanus and diphther ia toxoids, adsorbed, preservative free, for adult use (2 Lf of tetanus toxoid and 2 Lf of diphtheria toxoid) Qaamr SMITH [facility] 10-11-2017 pneumococcal polysaccharide vaccine, 23 valent Qamar LUIS [facility] 07-22-2016 pneumococcal conjuga te vaccine, 13 valent Qamar BOWERSDmitriy [facility] 06-29-2013 tetanus toxoid, redu mirtha diphtheria toxoid, and acellular pertussis vaccine, adsorbed Qamar SMITH [facility] 03-10-2000 Td(adult) unspecifie d formulation Qamar SMITH [facility] Payers Date Payer Category Payer Self-pay [id number] 2020 Medicare (Managed Care) 1.2. [id number] 2020 Unknown [id number] 1.13.159.2. [id number] 1959 Medicare [id number] 1959 Unknown [id number] 2.16.840.1.288039.19 1951 Unknown [id number] 2.16.840.1.262499.3.579.2. 593 1951 Unknown [id number] 2.16.840.1.626051.3.579.2. 593 1951 Unknown [id number] 2.16.840.1.740031.3.579.2. 593 1951 Unknown [id number] 2.16.840.1.008602.3.579.2. 593 1951 Unknown [id number] 2.16.840.1.078729.3.579.2. 593 1951 Unknown [id number] 2.16.840.1.248661.3.579.2. 593 1951 Unknown [id number] 2.16.840.1.971535.3.579.2. 593 1951 Unknown [id number] 2.16.840.1.361519.3.579.2. 593 1951 Unknown [id number] 2.16.840.1.972691.3.579.2. 593 1951 Unknown [id number] 2.16.840.1.059124.3.579.2. 593 1951 Unknown [id number] 2.16.840.1.921457.3.579.2. 593 1951 Unknown [id number] 2.16.840.1.953724.3.579.2. 593 1951 Unknown [id number] 2.16.840.1.790086.3.579.2. 593 1951 Unknown [id number] 2.16.840.1.943717.3.579.2. 593 1951 Unknown [id number] 2.16.840.1.525927.3.579.2. 593 1951 Unknown [id number] 2.16.840.1.112921.3.579.2. 593 1951 Unknown [id number] 2.16.840.1.438372.3.579.2. 593 1951 Unknown [id number] 2.16.840.1.898498.3.579.2. 593 1951 Unknown [id number] 2.16.840.1.419208.3.579.2. 593 1951 Unknown [id number] 2.16.840.1.815579.3.579.2. 1259 1951 Unknown [id number] 2.16.840.1.834554.3.579.2. 1259 1951 Unknown [id number] 2.16.840.1.848575.3.579.2. 727 1951 Unknown [id number] 2.16.840.1.514850.3.579.2. 727 1951 Unknown [id number] 2.16.840.1.657255.3.579.2. 1246 1951 Unknown [id number] 2.16.840.1.910207.3.579.2. 1246 1951 Unknown [id number] 2.16.840.1.578977.3.579.2. 1244 1951 Unknown [id number] 2.16.840.1.248451.3.579.2. 124 1951 Unknown [id number] 2.16.840.1.615471.3.579.2. 196 1951 Unknown [id number] 2.16.840.1.722655.3.579.2. 196 1951 Unknown [id number] 2.16.840.1.286082.3.579.2. 196 1951 Unknown [id number] 2.16.840.1.761264.3.579.2. 196 1951 Unknown [id number] 2.16.840.1.231346.3.579.2. 196 1951 Unknown [id number] 2.16.840.1.560256.3.579.2. 196 1951 Unknown [id number] 2.16.840.1.257949.3.579.2. 727 1951 Unknown [id number] 2.16.840.1.131153.3.579.2. 727 1951 Unknown [id number] 2.16.840.1.669822.3.579.2. 727 1951 Unknown [id number] 2.16.840.1.889203.3.579.2. 727 1951 Unknown [id number] 2.16.840.1.171079.3.579.2. 727 1951 Unknown [id number] 2.16.840.1.067051.3.579.2. 727 Medicare Medicare [id number] Private Health Insurance [id number] Unknown [facility] K [id number] Unknown [id number] 2.16.840.1.969033.3.579.2. 531 Unknown [id number] 2.16.840.1.807534.3.579.2. 531 Unknown [id number] 2.16.840.1.552228.3.579.2. 531 Social History Date Type Detail Facility Start: 10-17-2021 End: 07-18-2024 Tobacco smoking status NHIS Ex-smoker (finding) [facility] Comment on above: pt quit smoking 10+ yrs ago Start: 1950 Sex Assigned At Male [facility] Start: 11-05-2021 Tobacco smoking status Never s moked tobacco (finding) [facility] Tobacco smoking status Never [facility] Comment on above: pt quit smoking 10+ yrs ago Start: 05-08-2024 End: 08-02-2024 Sex Assigned At Male [facility] End: 06-21-2003 History of tobacco use Current smoker [facility] Work Phone: End: 06-21-2003 History of tobacco use Cigarette Smoker [facility] Work Phone: Start: 05-08-2024 End: 07-18-2024 Tobacco use and exposure Smokeless tobacco non-user [facility] Work Phone: Start: 05-08-2024 End: 08-02-2024 Alcoholic beverage intake Current drinker of alcohol (finding) [facility] Work Phone: Start: 05-08-2024 End: 08-02-2024 History of Social function [facility] Work Phone: Start: 05-08-2024 [facility] Start: 1950 Sex assigned at Not on file [facility] Work Phone: Start: 04-28-2024 End: 07-17-2024 Exposure to SARS-CoV-2 (event) Not sure [facility] Start: 07-08-2024 Sex Male (finding) [facility] Medical Equipment Procedure Code Equipment Code Equipment Original Text Equipment Identifier Dates Transurethral resection of bladder tumor (TURBT) with cystoscopy Polymeric ureteral stent ()[id number] FDA Start: 10-29-2021 Decompression, spine, cervical, posterior approach Bone-screw internal spinal fixation system, non-sterile ()[id number] FDA Start: 04-18-2020 Decompression, spine, cervical, posterior approach Bone-screw internal spinal fixation system, non-sterile ()[id number] FDA Start: 04-18-2020 Decompression, spine, cervical, posterior approach Bone-screw internal spinal fixation system, non-sterile ()[id number] FDA Start: 04-18-2020 Decompression, spine, cervical, posterior approach Bone-screw internal spinal fixation system, non-sterile ()[id number] FDA Start: 04-18-2020 Decompression, spine, cervical, posterior approach Bone-screw internal spinal fixation system, non-sterile ()[id number] FDA Start: 04-18-2020 Goals Date Patient Goal Desired Activity /State Functional Status Date Assessment Result Facility 07-12-2024 Functional Status N/A [facility] 05-09-2024 Functional Status N/A [facility] 10-26-2023 Functional Status N/A [facility] 10-04-2023 Functional Status N/A [facility] 04-27-2023 Functional Status N/A [facility] 02-10-2023 Functional Status N/A [facility] Functional Status N/A [facility] 02-24-2022 Functional Status N/A [facility] Clinical Notes 11-04-2021 to 08-16-2024 Lauren Gonzalez RN - 08/16/2024 1:52 PM Cydney Baxter MA - 08/16/2024 1:48 PM ESTPatient InstructionsNorberto Andrade MD - 08/16/2024 1:00 PM Alice Rosario RN - 08/09/2024 4:25 PM EST Note Date & Type Note Facility 08-16-2024 History of Present illness Narrative 1330 urine sent for POC 1343 urine obtained and resulted. Ok to proceed. Pt to change. 1400 16Fr mills cath inserted following lidojet without difficulty. Clear yellow urine obtained. 1415 Mills clamped and BCG instilled. Scant amount of urine in drainage bag. Pt will turn every 15 min and at bedside to set timer. 1500 tolerating treatment well. Turning self. 1544 tolerating well. Turning side to side. Reading a book. 30 min notice given. 1615 mills unclamped and allowed to drain 1625 Mills dcd without difficulty and approx 300cc urine in bag. documented in this encounter [facility] 08-16-2024 History of Present illness Narrative Back office UA test performed. Results entered in [employer] and doctor notified. Cydney Honeycutt MA documented in this encounter [facility] 08-16-2024 Instructions Norberto Andrade MD - 08/16/2024 1:25 PM EST Treatment today and every week Ordered CT scans F/u in 4 weeks documented in this encounter [facility] 08-16-2024 History of Present illness Narrative Images from the original note were not included. PATIENT NAME: Mary Diaz [facility] NO.: [id number] ATTENDING PHYSICIAN: Norberto Andrade MD DATE OF SERVICE: 08/16/[address] Lionel Whitney [address] [facility] [address] thank you for referring Mary Diaz for an opinion regarding non muscle invasive bladder cancer. Some of the elements of this note have been copied from my previous progress note dated 08/02/24. All the information has been reviewed carefully. 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 Urology recommended induction BCG x 6 treatments. H/o prostate cancer s/p radical prostatectomy in 08/2014. No smoking Occasional alcohol Doing well No major complaints. 08/02/24: - Doing well - No major complaints - C/o left hip pain - Doing intraarticular steroid injection next week on Wednesday. 08/16/24: - Doing well - No major complaints - C/o easy bruising Current Outpatient Medications Medication Sig doxazosin (CARDURA) 1 mg tablet Take 1 mg by mouth. methocarbamol 1,000 mg tablet Take 1,000 mg [...] Take 100 mg by mouth as needed. 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 - Urology recommended induction BCG x 6 treatments. PLAN: - Doing well - Proceed with week 3 intravesical BCG treatment today. - Tolerating well so far. - Ordered CT scans - Check CBC CMP PSA. - All his questions answered in detail - F/u in [address] Lionel Whitney [address] [facility] [address] thank you for allowing me to participate in Mary Rogers Essie care, if there are any questions or concerns please do not hesitate to contact me at the number below. I spent a total of 30 minutes on the date of the service which included preparing to see the patient, ewdm-yi-vblp patient care, completing clinical documentation, obtaining and/or reviewing separately obtained history, performing a medically appropriate examination, counseling and educating the patient/family/caregiver, ordering medications, tests, or procedures, communicating with other HCPs (not separately reported), independently interpreting results (not separately reported), communicating results to the patient/family/caregiver, and care coordination (not separately reported). Norberto Andrade MD. Hematology/Medical Oncology [facility] [phone] CC: documented in this encounter [facility] 08-09-2024 Note HNO ID: [id number] Author: ALICE PEARCE RN Service: ? Author Type: Registered Nurse Type: Progress Notes Filed: 08/09/2024 16:39 Note Text: 1620 -- BCG dwell time complete; mills tubing unclamped and allowing bladder to drain at this time. 1633 -- Bladder drainage complete, ~400 mL clear, yellow urine in collection bag. 10 mL NS removed from catheter balloon and mills d/c'ed without issue. Pt dressing independently, at side, ready for discharge when dressed. Alice Pearce RN [facility] 08-09-2024 History of Present illness Narrative 1620 -- BCG dwell time complete; mills tubing unclamped and allowing bladder to drain at this time. 1633 -- Bladder drainage complete, ~400 mL clear, yellow urine in collection bag. 10 mL NS removed from catheter balloon and mills d/c'ed without issue. Pt dressing independently, at side, ready for discharge when dressed. Alice Pearce RN 1400: UA collected and negative results, pt reports zero urinary symptoms today. Will proceed with tx today. 14 F mills catheter inserted via sterile technique using lidocaine. First attempt with 16 F catheter unsuccessful. Pt tolerated well. Clear yellow urine draining via gravity. 1420: 50 mL noted in drain bag prior to tx. BCG instilled and mills clamped. Pt instructed to turn every 15 minutes. Patients has alarm set as a reminder. Will monitor. 1500: Pt continues to turn with no complaints. 1544: Pt tolerating well. documented in this encounter [facility] 08-09-2024 Note HNO ID: [id number] Author: MONSE VIDAL RN Service: ? Author Type: Registered Nurse Type: Progress Notes Filed: 08/09/2024 16:39 Note Text: 1400: UA collected and negative results, pt reports zero urinary symptoms today. Will proceed with tx today. 14 F mills catheter inserted via sterile technique using lidocaine. First attempt with 16 F catheter unsuccessful. Pt tolerated well. Clear yellow urine draining via gravity. 1420: 50 mL noted in drain bag prior to tx. BCG instilled and mills clamped. Pt instructed to turn every 15 minutes. Patients has alarm set as a reminder. Will monitor. 1500: Pt continues to turn with no complaints. 1544: Pt tolerating well. [facility] 08-09-2024 Note HNO ID: [id number] Author: CYDNEY HONEYCUTT MA Service: ? Author Type: Electorate Officer Type: Progress Notes Filed: 08/09/2024 13:50 Note Text: Back office UA test performed. Results entered in [employer] and doctor notified. Cydney Honeycutt MA [facility] 08-09-2024 History of Present illness Narrative Back office UA test performed. Results entered in [employer] and doctor notified. Cydney Honeycutt MA documented in this encounter [facility] 08-07-2024 Telephone encounter Note CYCLE 1/DAY 1 POST TREATMENT CALL Today's date: August 07, 2024 Treatment Regimen: BCG C1D1 Date: 08/02/24 Called patient to follow-up on symptom management. Spoke with patient Pt states he did well with first BCG treatment. Denies any pain, burning, urgency, frequency, or blood in urine. States he tolerated it well and denies needs or concerns at this time. Reinforced CURRENT treatment education based on current and anticipated symptoms. Discussed port/line care and patient verbalizes understanding: Not Applicable Patient instructed to contact office or after hours Hematology/Oncology fellow for: temperature >= 100.4; questions or concerns. Patient verbalized understanding of when to seek medical attention and after hours number protocol. Ingrid Ugalde RN [facility] Work Phone: 08-07-2024 Miscellaneous Notes CYCLE 1/DAY 1 POST TREATMENT CALL Today's date: August 07, 2024 Treatment Regimen: BCG C1D1 Date: 08/02/24 Called patient to follow-up on symptom management. Spoke with patient Pt states he did well with first BCG treatment. Denies any pain, burning, urgency, frequency, or blood in urine. States he tolerated it well and denies needs or concerns at this time. Reinforced CURRENT treatment education based on current and anticipated symptoms. Discussed port/line care and patient verbalizes understanding: Not Applicable Patient instructed to contact office or after hours Hematology/Oncology fellow for: temperature >= 100.4; questions or concerns. Patient verbalized understanding of when to seek medical attention and after hours number protocol. Ingrid Ugalde RN documented in this encounter [facility] 08-02-2024 Note HNO ID: [id number] Author: KERON KELLY RN Service: ? Author [...] for follow up appointments. Keron Kelly RN [facility] 08-02-2024 History of Present illness Narrative 0920: [...] Keron Kelly RN documented in this encounter [facility] 08-02-2024 Instructions Norberto Andrade MD - 08/02/2024 9:05 AM EST BCG treatment today and every week F/u in 2 weeks documented in this encounter [facility] 08-02-2024 Note HNO ID: [id number] Author: SANTOSH DEL RIO MA Service: ? Author Type: Electorate Officer Type: Progress Notes Filed: 08/02/2024 08:51 Note Text: UA performed as ordered. Santosh Del Rio MA [facility] 08-02-2024 History of Present illness Narrative UA performed as ordered. Santosh Del Rio MA documented in this encounter [facility] 08-02-2024 History of Present illness Narrative Images from the original note were not included. PATIENT NAME: Mary Diaz CLINIC NO.: [id number] ATTENDING PHYSICIAN: Norberto Andrade MD DATE OF SERVICE: 08/02/[address] Lionel Whitney [address] 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 Urology recommended [...] Take 100 mg by mouth as needed. 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 - Urology recommended induction BCG x 6 treatments. PLAN: - Doing well - Proceed with week 1 intravesical BCG treatment today. - Recent blood work is essentially unremarkable. - All his questions answered in detail - F/u in [address] Lionel Whitney [address] [facility] [address] thank you for allowing me to participate in Mary Diaz care, if there are any questions or concerns please do not hesitate to contact me at the number below. I spent a total of 30 minutes on the date of the service which included preparing to see the patient, [id number]-vl-qzov patient care, completing clinical documentation, obtaining and/or reviewing separately obtained history, performing a medically appropriate examination, counseling and educating the patient/family/caregiver, ordering medications, tests, or procedures, communicating with other HCPs (not separately reported), independently interpreting results (not separately reported), communicating results to the patient/family/caregiver, and care coordination (not separately reported). Norberto Andrade MD. Hematology/Medical Oncology [facility] [phone] CC: documented in this encounter [facility] 08-02-2024 Note HNO ID: [id number] Author: NORBERTO ANDRADE MD Service: ? Author Type: Physician Type: Progress Notes Filed: 08/02/2024 09:15 Note Text: PATIENT NAME: Mary Diaz [facility] NO.: [id number] ATTENDING PHYSICIAN: Norberto Andrade MD DATE OF SERVICE: 08/02/[address] Lionel Whitney [address] 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 Urology recommended [...] Take 100 mg by mouth as needed. rqkbmstktml-mamwrsamc-zziafqxi (TRELEGY ELLIPTA) 100-62.5-25 mcg inhalation powder Inhale [...] pain to percussion (more content not included)... [facility] 08-01-2024 Telephone encounter Note Spoke with patient over the phone today. Patient is active with [employer], LOC 80%, $0 deductible has $0 remaining, $3500 OOP has $3400 remaining. Estimate shows patient financial responsibility is $134.16 for each treatment in 2024 until oop max is reached. Patient stated understanding. Reference #[id number]. There is currently no Bladder funding available, but will add him to my wait list. MyCost completed over the phone. He was very appreciative of my phone call. [facility] 08-01-2024 Miscellaneous Notes Spoke with patient over the phone today. Patient is active with [employer], LOC 80%, $0 deductible has $0 remaining, $3500 OOP has $3400 remaining. Estimate shows patient financial responsibility is $134.16 for each treatment in 2024 until oop max is reached. Patient stated understanding. Reference #[id number]. There is currently no Bladder funding available, but will add him to my wait list. [employer] completed over the phone. He was very appreciative of my phone call. documented in this encounter [facility] 07-26-2024 Note HNO ID: [id number] Author: INGRID UGALDE RN Service: ? Author [...] minutes REFERRAL (RECOMMENDATION): N/A Ingrid Ugalde RN 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 YES Confirmed date and time for chemotherapy ? YES Other appointments (labs, imaging) discussed? 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 YES - [address] [place] [address] Information. YES - Patient services information. YES - My Journey binder given to pt. Time Spent: 30 minutes REFERRAL (RECOMMENDATION): N/A Ingrid Ugalde RN 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 YES Confirmed date and time for chemotherapy ? YES Other appointments (labs, imaging) discussed? 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 PATIENT NAME: Mary Diaz [facility] NO.: [id number] ATTENDING PHYSICIAN: Norberto Andrade MD DATE OF SERVICE: July 19, [address] Lionel Whitney [address] [facility] [address] thank you for referring Mary Diaz for [...] atleast 1 fragment without obvious stromal invasion (software writer). 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 Urology recommended [...] atleast 1 fragment without obvious stromal invasion (software writer). 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 - Urology recommended induction BCG x 6 treatments. - We will start him on weekly BCG treatments after 2 weeks from today - Check CBC CMP - All his questions answered in detail - F/u in [address] Lionel Whitney [address] [facility] [address] thank you for allowing me to participate in Mary Diaz care, if there are any questions or concerns please do not hesitate to contact me at the number below. I spent a total of 60 minutes on the date of the service which included preparing to see the patient, xbsl-ob-kslk patient care, completing clinical documentation, obtaining and/or reviewing separately obtained history, performing a medically appropriate examination, counseling and educating the patient/family/caregiver, ordering medications, tests, or procedures, communicating with other HCPs (not separately reported), independently interpreting results (not separately reported), communicating results to the patient/family/caregiver, and care coordination (not separately reported). Norberto Andrade MD. Hematology/Medical Oncology [place] [phone] CC: documented in this encounter [facility] 07-19-2024 Note HNO ID: [id number] Author: NORBERTO ANDRADE MD Service: ? Author Type: Physician Type: Progress Notes Filed: 07/19/2024 11:42 Note Text: PATIENT NAME: Mary Diaz [facility] NO.: [id number] ATTENDING PHYSICIAN: Norberto Andrade MD DATE OF SERVICE: July 19, [address] Lionel Whitney [address] [facility] [address] thank you for referring Mary Diaz for [...] atleast 1 fragment without obvious stromal invasion (software writer). 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 Urology recommended [...] atleast 1 fragment without obvious stromal invasion (software writer). 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 - Urology recommended induction BCG x 6 treatments. - We will start him on weekly BCG treatments after 2 weeks from today - Check CBC CMP - All his questions answered in detail - F/u in [address] Lionel Whitney [address] [facility] [address] thank you for allowing me to participate in Mary Diaz care, if there are any questions or concerns please do not hesitate to contact me at the number below. I spent a total of 60 minutes on the date of the service which included preparing to see the patient, taxb-xr-cfaa patient care, completing clinical documentation, obtaining and/or reviewing separately obtained history, performing a medically appropriate examination, counseling and educating the patient/family/caregiver, ordering medi (more content not included)... [facility] 07-17-2024 History of Present illness Narrative Seen [...] (VOLTAREN) 75 mg, 2 times daily HYDROcodone-acetaminophen (Munday) 5-325 mg tablet 1 tablet, Daily PRN [...] Diagnosis Date Noted Bilateral carotid artery disease ([facility]) 07/17/2024 Chest pressure 07/17/2024 BMI 26.0-26.9,adult 05/08/2024 [...] Scribe Attestation By signing my name below, I, Lillie Azul LPN , Sandra attest that this documentation has been prepared under the direction and in the presence of Cady Espinosa MD. documented in this encounter [facility] Work Phone: 07-17-2024 Instructions Lillie Garcia LPN [...] instructions on exercise. documented in this encounter [facility] Work Phone: 07-12-2024 Hospital Discharge instructions Patient [...] cells. Follow these instructions at home: Take gqcu-ecm-jdhmemb and prescription medicines only as told by [...] is important. Where to find more information [place] [employer] (ACS): cancer.org National Cancer [place] (NCI): cancer.gov Contact a health care provider [...] provider. Document Revised: 05/18/2022 Document Reviewed: 05/18/2022 [employer] Patient Education 2023 [employer]. Follow Up Care 05/09/2024 13:40:51 With:DEVONTE NOBLE, Lionel Burgos, URL Address: [facility] [address], [place] [address]- When: Unknown [facility] 07-12-2024 Note Patient Education Oncology Bladder Cancer [...] Follow these instructions at home: ??? Take ihbb-qgv-jfcotfv and prescription medicines only as told by [...] important. Where to find more information ??? [place] Cancer [employer] (ACS): cancer.org ??? National Cancer [place] (NCI): cancer.gov Contact a health care provider [...] information is n (more content not included)... [facility] 05-09-2024 Evaluation + Plan note [...] Date:07/12/2024 10:30:00 AM Scheduled Provider:Lionel WHITNEY MD Location:[facility] Appointment Type:URO Office Visit Appointment Date:10/09/2024 10:15:00 AM Scheduled Provider:Lionel WHITNEY MD Location:[facility] [place] Appointment Type:URO Office Visit Diagnostic Tests Pending * UroVysion Fish and Urine Cyto ([facility]) 05/09/24 [facility] 11-19-2024 Hospital Discharge instructions Patient [...] Up Care 04/13/2024 11:43:40 With:Lionel WHITNEY Address: [address] [place] [address] Business (1) When: Unknown Comments:Office will call to schedule follow up [facility] 11-19-2024 NoteProgress Note-Physician Patient: MARY [...] All Problems HTN (hypertension) / SNOMED CT [id number] / Confirmed Acute gouty arthritis / SNOMED CT [id number] / Confirmed lots of inflammation per pt sometimes has to get steroids History of prostate cancer / SNOMED CT 4906141016 / Confirmed History of kidney stones / SNOMED CT 9715446476 / Confirmed Impotence / SNOMED CT 2321316847 / Confirmed Bladder cancer / SNOMED CT 1833645189 / Confirmed Spondylolisthesis of cervical region / SNOMED CT 437539493 / Confirmed Chronic obstructive pulmonary disease / SNOMED CT 98066733 / Confirmed GERD (gastroesophageal reflux disease) / SNOMED CT 633079275 / Confirmed BMI 23.0-23.9, adult / SNOMED CT 9211249282 / Confirmed Personal history of colonic polyps / SNOMED CT 5238872321 / Confirmed Chronic GERD / SNOMED CT 314133599 / Confirmed Change in bowel habits / SNOMED CT 141031405 / Confirmed Iron deficiency anemia / SNOMED CT 035801243 / Confirmed Personal history of bladder cancer / SNOMED CT 5997106553 / Confirmed Shoulder impingement syndrome / SNOMED CT 035891851 / Confirmed Ecchymosis / SNOMED CT 989321269 / Confirmed left leg from españa to ankle- box with snowblower in it slipped off a cart and banged his leg. Foot pink and dry with immediate capillary refill, 4t pedal and poterior tibial pulses. Umbilical hernia / SNOMED CT 5124004808 / Confirmed Histories Past Medical History: Active HTN (hypertension) ([id number]) Acute gouty arthritis ([id number]) Comments: 08/22/2014 EST 16:07 Jannette Del Rio RN lots of inflammation per pt sometimes has to get steroids Resolved Cancer of prostate ([id number]): Resolved. Comments: 08/22/2014 EST 16:09 Jannette Del Rio RN just had a surgery done radical prostectomy at [facility] Acid reflux ([id number]): Resolved. Family History: Hypertension Father Diabetes mellitus type 2 Father Depression Sister Procedure history: Cystoscopy ([id number]) on 04/27/2023 at 73 Years. TURBT - Transurethral resection of bladder tumor (2494528932) on 01/14/2023 at 72 Years. TURBT - Transurethral resection of bladder tumor (3015545361) on 02/17/2022 at 72 Years. TURBT - Transurethral resection of bladder tumor (8568110417) on 10/29/2021 at 71 Years. Cystourethroscopy with dilation of urethral stricture (485614410) on 10/14/2021 at 71 Years. Repair of umbilical hernia (22737182) on 06/22/2017 at 67 Years. Comments: 06/22/2017 14:35 Nedra Tavares RN Umbilical hernia repair with mesh ( assisted with robot) Arthroscopy of shoulder (496555200) on 05/20/2017 at 67 Years. Comments: 05/20/2017 19:03 Zora Gay RN LEFT SHOULDER ARTHROSCOPIC, CHONDROPLASTY,DEBRIDEMENT OF PARTIAL ROTATOR CUFF TEAR, REMOVAL RETAINED SUTURE Radical prostatectomy (77850615) in the month of 08/2014 at 64 Years. bilateral fifth partial metatarsal osteotomies and Silver Tailor's bunionectomies on 08/29/2014 at 64 Years. Colonoscopy (604713032) in the month of 05/2014 at 64 Years. Complete repair of rotator cuff (062751572) in 2010 at 61 Years. Comments: 08/22/2014 16:14 Jannette Del Rio RN right Shoulder reconstruction (090577248) in 1998 at 49 Years. Comments: 08/22/2014 16:15 Jannette Del Rio RN left possibly a screw in there per pt Appendectomy (097577518) in 1965 at 15 Years. Arthroplasty of the ankle (1370129203). Comments: 12/30/2018 14:30 Jayne Elkins 1988, 1990 Arthroscopy of knee (277077984). Cervical vertebral fusion (31193893). Social History Social & Psychosocial Habits Alcohol 10/04/2023 Risk Assessment: Low Risk 10/04/2023 Use: Current Substance Abuse 10/04/2023 Risk Assessment: Denies Substance Abuse Tobacco 10/04/2023 Risk Asse (more content not included)...[facility] Comment on above:Result Comment: Electronically Signed By: DEVONTE NOBLE, Lionel Ernandez\Date and Time Signed: 05/09/24 09:50 [id number] NotePatient Education Custom Cystoscopy ??? Voiding after [...] if you have a fever over 100 degrees.[facility] 05-08-2024 NoteNormal sinus rhythm 67 bpm left axis deviation incomplete right bundle branch block poor R wave progression. No comparison EKG.[id number] History of Present illness Narrative* Cady Espinosa MD - 05/08/2024 11:15 AM EST Referred by Dr. Qamar Monterroso for New Patient Visit (Dtmiswff-Diygnd-Qphfwctutxtu) History Of Present Illness: Mary Diaz is [...] (VOLTAREN) 75 mg, 2 times daily HYDROcodone-acetaminophen (Munday) 5-325 mg tablet 1 tablet, Daily PRN [...] further questions arise, Sincerely, Cady Espinosa MD [facility] Provider Attestation - Scribe documentation All medical record entries made by the Scribe were at my direction and personally dictated by me. Ihave reviewed the chart and agree that the record accurately reflects my personal performance of the history, physical exam, discussion and plan. documented in this [facility] Work Phone: 1(472) 700-925611-18-2024 Instructions* Patient Instructions* Ella Cruz RN - [...] on exercise. documented in this [facility] Work Phone: 1(449) 119-179005-07-2024 Hospital Discharge instructions Patient Education 10/26/2023 11:58:55 [...] Up Care 09/29/2023 09:06:13 With:Lionel WHITNEY Address: [address] [place] [address] [facility] (1) When: Unknown Comments:Office will call to schedule follow up [facility]05-07-2024 Note [id number] [facility] 10-26-2023 NoteCustom Cystoscopy ? Voiding after [...] if you have a fever over 100 degrees.[facility] 10-04-2023 Hospital Discharge instructions Patient [...] if anything looks unusual. Men with a uxpuwn-ljmp-oyuonv risk for skin cancer may want to see a science specialist (steaming machine operator) for an annual body check. What are the benefits of screening? Cancer screening is done to look for cancer in the very early stages, before it spreads and becomesharder to treat and before you would start to notice symptoms. Finding cancer early improves the chances of successful treatment. It may save your life. Where to find more information [place] Cancer Society: www.cancer.org Centers for Disease Control and Prevention: www.cdc.gov National Cancer [place]: www.cancer.gov Contact a health care provider if: [...] provider. Document Revised: 11/03/2021 Document Reviewed: 05/03/2020 [employer] Patient Education 2022 [employer]. Follow Up Care 10/01/2022 10:55:16 With:DEVONTE NOBLE, Lionel Burgos, URL Address: [facility] [address] [place] [address]- [phone] When: Unknown Comments:1 yr w/ PSA [facility] 11-07-2023 Hospital Discharge instructions Patient Education [...] Address: [facility] [address] [place] [address]- [facility] (1) When: Unknown Comments:Office will call to schedule follow up [facility]07-18-2023 Hospital Discharge instructions Patient Education [...] Address: [facility] [address] [place] [address]- [facility] (1) When: Unknown Comments:Office will call to schedule follow up [facility]06-15-2023 Evaluation note* Encounter Date Diagnosis [...] M46.1) Nov, Neurogenic claudication (ICD-10 - R29.818) [facility] Other 05-04-2023 Evaluation note* Encounter Date Diagnosis [...] spine October, Neurogenic claudication (ICD-10 - R29.818) [facility] Other 04-03-2023 Hospital Discharge instructions Patient Education [...] if anything looks unusual. Men with a vrczcj-mikf-qidqfq risk for skin cancer may want to see a science specialist (steaming machine operator) for an annual body check. Where to find more information National Cancer [place]: https://www.cancer.gov/about-cancer/screening Centers for Disease Control and Prevention: https://www.cdc.gov/cancer/dcpc/prevention/screening.htm [place] Cancer Society: https://www.cancer.org/latest-news/5-kvtmkw-wrlketxhb-wixca-zsz-gnd.html Contact a health care provider if: You [...] 03/04/2017 Document Revised: 02/24/2019 Document Reviewed: 03/04/2017 [employer] Patient Education 2020 [employer]. Follow Up Care 09/19/2021 11:05:08 With:DEVONTE NOBLE, Lionel Burgos, URL Address: [facility] [address] [place] [address]- When: Unknown [facility] 01-17-2023 Hospital Discharge instructions Patient Education [...] Address: [facility] [address] [place] [address]- Business (1) When: Unknown Comments:Office will call to schedule follow up [facility]09-06-2022 Hospital Discharge instructions Patient Education [...] if anything looks unusual. Men with a ypgzsc-jcio-slcvag risk for skin cancer may want to see a science specialist (steaming machine operator) for an annual body check. Where to find more information National Cancer [place]: https://www.cancer.gov/about-cancer/screening Centers for Disease Control and Prevention: https://www.cdc.gov/cancer/dcpc/prevention/screening.htm [place] Cancer Society: https://www.cancer.org/latest-news/3-dagpjg-oidnfogrv-brwui-wgk-nkn.html Contact a health care provider if: You [...] 03/04/2017 Document Revised: 02/24/2019 Document Reviewed: 03/04/2017 [employer] Patient Education 2020 [employer]. Follow Up Care 02/05/2022 13:48:40 With:DEVONTE NOBLE, Lionel Burgos, [place] Address: [facility] [address] [place] [phone] When: Unknown [facility] [id number] Hospital Discharge instructions Patient Education 11/11/2021 09:47:46 [...] Address: [facility] [address] [place] [address]- Business (1) When: Unknown Comments:Keep scheduled appointment [facility]05-17-2022 Hospital Discharge instructions Patient [...] who: Are older than age 65. Are -[place]. Are obese. Have a family history of [...] cells. Follow these instructions at home: Take pspk-vyi-chjfsqo and prescription medicines only as told by [...] 06/07/2006 Document Revised: 05/20/2018 Document Reviewed: 02/15/2017 [employer] Patient Education 2020 [employer]. Follow Up Care 10/14/2021 11:26:04 With:Lionel WHITNEY MD, URL Address: [facility] [address], [place] [address]- When: Unknown [facility] Evaluation + Plan note Future Appointments Appointment Date:09/21/2022 09:45:00 AM Scheduled Provider:[facility] Evaluation + Plan note Future Appointments Appointment Date:03/09/2022 09:00:00 AM Scheduled Provider: Location:[facility] [place] Appointment Type:URO Nurse Visit Appointment Date:04/15/2022 09:00:00 AM Scheduled Provider: Location:[facility] [place] Appointment Type:URO Nurse Visit Appointment Date:09/21/2022 09:45:00 AM Scheduled Provider:Lionel WHITNEY MD Location:[facility] [place] Appointment Type:URO Office Visit [facility] Evaluation + Plan note Future Appointments Appointment Date:03/09/2022 09:00:00 AM Scheduled Provider: Location:[facility] [place] Appointment Type:URO Nurse Visit Appointment Date:04/15/2022 09:00:00 AM Scheduled Provider: Location:[facility] [place] Appointment Type:URO Nurse Visit Appointment Date:09/21/2022 09:45:00 AM Scheduled Provider:Lionel WHITNEY MD Location:[facility] [place] Appointment Type:URO Office Visit Diagnostic Tests Pending * [facility] App[facility]ments Appointment Date:04/15/2022 09:00:00 AM Scheduled Provider: Location:[facility] [place] Appointment Type:URO Nurse Visit Appointment Date:09/21/2022 09:45:00 AM Scheduled Provider:Lionel WHITNEY MD Location:[facility] [place] Appointment Type:URO Office Visit [facility] evaluation + Plan note Future Appointments Appointment Date:07/20/2022 10:00:00 AM Scheduled Provider: Location:[facility] [place] Appointment Type:URO Nurse Visit Appointment Date:08/17/2022 10:00:00 AM Scheduled Provider: Location:[facility] [place] Appointment Type:URO Nurse Visit Appointment Date:09/21/2022 09:45:00 AM Scheduled Provider:Lionel WHITNEY MD Location:[facility] [place] Appointment Type:URO Office Visit Diagnostic Tests Pending * [facility]ion FISH ([facility]) [facility]07[facility] Future App[facility]ments Appointment Date:08/17/2022 10:00:00 AM Scheduled Provider: Location:[facility] [place] Appointment Type:URO Nurse Visit Appointment Date:09/21/2022 09:45:00 AM Scheduled Provider:Lionel WHITNEY MD Location:[facility] [place] Appointment Type:URO Office Visit [facility] [place] Evaluation + Plan note Future Appointments Appointment Date:09/22/2022 02:00:00 PM Scheduled Provider: Location:[facility] Appointment Type:Urology CALL PAT FT Appointment Date:09/29/2022 11:15:00 AM Scheduled Provider: Location:[facility] Appointment Type:Urology FT [facility] evaluation + Plan note Future Appointments Appointment Date:09/22/2022 02:00:00 PM Scheduled Provider: Location:[facility] Appointment Type:Urology CALL PAT FT Appointment Date:09/29/2022 11:15:00 AM Scheduled Provider: Location:[facility] Appointment Type:Urology FT Diagnostic Tests Pending * Urine Cytology ([facility]) 09/21/22 [facility] evaluation + Plan note Future Appointments Appointment Date:10/04/2023 10:15:00 AM Scheduled Provider:Lionel WHITNEY MD Location:[facility] Appointment Type:URO Office Visit Diagnostic Tests Pending * UroVysion Fish and Urine Cyto ([facility]) [facility]ments Appointment Date:10/04/2023 10:15:00 AM Scheduled Provider:Lionel WHITNEY MD Location:[facility] Appointment Type:URO Office Visit General Surgery [facility] Evaluation + Plan note Future Appointments Appointment Date:10/04/2023 10:15:00 AM Scheduled Provider:Lionel WHITNEY MD Location:[facility] Appointment Type:URO Office Visit Diagnostic Tests Pending * UroVysion Fish and Urine Cyto ([facility]) 04[facility]27/23 [facility] App[facility]ments Appointment Date:10/20/2023 12:00:00 PM Scheduled Provider: Location:[facility] Appointment Type:Urology CALL PAT FT Appointment Date:10/26/2023 10:00:00 AM Scheduled Provider: Location:[facility] Appointment Type:Urology FT Appointment Date:10/09/2024 10:15:00 AM Scheduled Provider:Lionel WHITNEY MD Location:[facility] Appointment Type:URO Office Visit Diagnostic Tests Pending * PSA Total 10/04/23 [facility] evaluation + Plan note Future Appointments Appointment Date:10/09/2024 10:15:00 AM Scheduled Provider:Lionel WHITNEY MD Location:[facility] Appointment Type:URO Office Visit Diagnostic Tests Pending * UroVysion Fish and Urine Cyto ([facility]) 10/26/23 [facility] Future App[facility]ments Appointment Date:07/12/2024 10:30:00 AM Scheduled Provider:Lionel WHITNEY MD Location:[facility] Appointment Type:URO Office Visit Appointment Date:10/09/2024 10:15:00 AM Scheduled Provider:Lionel WHITNEY MD Location:[facility] Appointment Type:URO Office Visit [facility] evaluation + Plan note Future Appointments Appointment Date:07/12/2024 10:30:00 AM Scheduled Provider:Lionel WHITNEY MD Location:[facility] Appointment Type:URO Office Visit Appointment Date:10/09/2024 10:15:00 AM Scheduled Provider:Lionel WHITNEY MD Location:[facility] Appointment Type:URO Office Visit Diagnostic Tests Pending * Urine Cytology ([facility]) 05/22/24 [facility] Evaluation + Plan note Future Appointments Appointment Date:10/09/2024 10:15:00 AM Scheduled Provider:Lionel WHITNEY MD Location:[facility] Appointment Type:URO Office Visit [facility] evaluation noteNo assessment information available [facility] Work Phone: Evalubiqio note* Diagnosis Onset Date Resolution Status Spinal stenosis of cervical region with radiculopathy acute Spinal stenosis of lumbar region with radiculopathy acute [facility] Work Phone: Evaluation note* Diagnosis Onset Date Resolution Status Spinal stenosis of cervical region with radiculopathy acute Spinal stenosis of lumbar region with radiculopathy acute Colonization status acute COPD (chronic obstructive pulmonary disease) acute [facility] Work Phone: Evaluation note* Diagnosis Unequal blood pressure in upper extremities Uncontrolled hypertension Shortness of breath Mixed hyperlipidemia History of prostate cancer Personal history of malignant neoplasm of prostate Hx of bladder cancer Personal history of malignant neoplasm of bladder History of fractured rib Former smoker Personal history of tobacco use, presenting hazards to health BMI 25.0-25.9,adult Medication course changed documented in this encounter [facility] Work Phone: Evaluation note* Diagnosis Left carotid bruit Unequal blood pressure in upper extremities documented in this encounter [facility] Work Phone: Evaluation note* Diagnosis Former smoker Personal history of tobacco use, presenting hazards to health Shortness of breath documented in this encounter [facility] Work Phone: Evaluation note* Diagnosis Uncontrolled hypertension [...] breath BMI 26.0-26.9,adult documented in this encounter [facility] Work Phone: Evaluation note* Diagnosis Malignant neoplasm of urinary bladder, unspecified site (HCC)- Primary [facility] Diagnosis Malignant neoplasm of urinary bladder, unspecified site (HCC)- Primary documented in this encounter [facility] note* Diagnosis Malignant neoplasm of urinary bladder, unspecified site (HCC)- Primary documented in this encounter [facility] note* Diagnosis Malignant neoplasm of urinary bladder, unspecified site (HCC)- Primary documented in this encounter [facility] note* Diagnosis Malignant neoplasm of urinary bladder, unspecified site (HCC)- Primary documented in this encounter [facility] note* Diagnosis Malignant neoplasm of urinary bladder, unspecified site (HCC)- Primary documented in this encounter [facility] note* Diagnosis High risk medication use- Primary Encounter for long-term (current) use of other medications documented in this encounter [facility] note* Diagnosis Malignant neoplasm of urinary bladder, unspecified site (HCC)- Primary documented in this encounter [facility] note* Diagnosis High risk medication use- Primary Encounter for long-term (current) use of other medications documented in this encounter [facility] general Narrative - Reported* Type Description Date [...] KNEE SCOPE Surgical History L [facility] Hospitalization History FLU X2-3 DAYS Hospitalization History see surg. hx. [employer] Other Hospital course Narrative No data available for this section [facility] Hospital Discharge instructions No data available for this section [facility] progress note No data available for this section [facility] Reason for visit Narrative* Imaging (Routine) - Authorized Specialty Diagnoses / Procedures Referred By Contac t Referred To Contact Cardiology Diagnoses Left carotid bruit Unequal blood pressure in upper extremities Procedures Vascular US Carotid Artery Duplex Bilateral Cady Espinosa MD [address] [address] Phone: tel: fax: Referral ID Status Reason Start Date Expiration Date Visits Requested Visits Authorized [id number] Authorized Perform Procedure 4 05/10/2025 1 1 [facility] Work Phone: reason for visit Narrative* CV Imaging (Routine) - Authorized Specialty Diagnoses / Procedures Referred By Contac t Referred To Contact Cardiology Diagnoses Former smoker Shortness of breath Procedures Transthoracic Echo Complete VT ECHO TTHRC R-T 2D W/WOM-MODE COMPL SPEC&COLR D Cady Espinosa MD [address] [place] [address] Phone: tel: fax: Referral ID Status Reason Start Date Expiration Date Visits Requested Visits Authorized [id number] Authorized Perform Procedure 4 05/08/2025 1 1 [facility] Work Phone: reason for visit Narrative* Steinauer Prior Authorization (Routine) - Authorized Specialty Diagnoses / Procedures Referred By Contac t Referred To Contact Diagnoses Malignant neoplasm of urinary bladder, unspecified site (HCC) Procedures BCG LIVE INTRAVESICAL INSTILLATION, 1 MG Norberto Andrade MD [address] [place] [address] [place] [address] Phone: tel: fax: Hematology/Oncology [address] [place] [address] [place] [address] Phone: tel: fax: Referral ID Status Reason Start Date Expiration Date V isits Requested Visits Authorized [id number] Authorized 07/26/2024 06/20/2025 1 99 [facility] Chief Complaint and Reason for Visit Chief [...] July 06, 2024 2 :25pm Family History Relationship Condition Age at Onset [...] Diagnosis 1 Cervical spondylosis (M47.812) Referral [facility] Referring Provider First Name Zoran Referring Provider Last Name Scott Referring Provider Specialty Neurologica l Surgery Referred Organization [facility] Referred Address [address] [place], [place],[address] Referred Provider Specialty Physical The rapist Referral Priority Routine Reason evaluate and tr eat for neck and back pain Diagnosis 1 Cervical spondylosis (M47.812) Diagnosis 2 Low back pain, unspe cified (M54.50) Referral Organization [facility] Referring Provider First Name Zoran Referring Provider Last Name Scott Referring Provider Specialty Neurologica l Surgery Referred Organization [facility] Referred Provider Raoul Soriano Referred Address [address], [place],[address] Referred Provider Specialty Pain Medicin e Referral Priority Routine General Notes Fore, Meron M 05/05/2 023 08:08:21 AM >Received today and waiting [...] March 28, 2024 End: March 28, 2024 Assistant Community Director Relationship Specialty Start Date End Date Deandre Monterroso MD [address] [place] [address] [place] [address] PCP - General Family Medicine 05/08/24 Assistant Community Director Relationship Specialty Start Date End Date Deandre Monterroso MD [address] [place] [address] PCP - General Family Medicine 05/08/24 Team Status: Inactive Member Role Status Dates Deandre Monterroso MD Primary Care Provider Active Start: July 06, 2024 End: July 06, 2024 Lionel Whitney MD Attending Provider Active St art: July 06, 2024 End: July 06, 2024 Assistant Community Director Relationship Specialty Start Date End Date Deandre Monterroso MD [address] [place] [address] PCP - General Family Medicine 05/08/24 Assistant Community Director Relationship Specialty Start Date End Date Lionel [place] MD [address] [place] [address] Urology 07/18/24 Assistant Community Director Relationship Specialty Start Date End Date Lionel Whitney MD [address] [place] [address] Urology 07/18/24 Assistant Community Director Relationship Specialty Start Date End Date Deandre Monterroso MD [address] [place] [address] PCP - General Family Medicine 07/26/24 Lionel Whitney MD [address] [place] [address] Urology 07/18/24 Assistant Community Director Relationship Specialty Start Date End Date Deandre Monterroso MD [address] [place] [address] PCP - General Family Medicine 07/26/24 Lionel Whitney MD [address] [place] [address] Urology 07/18/24 Assistant Community Director Relationship Specialty Start Date End Date Deandre Monterroso MD [address] [place] [address] PCP - General Family Medicine 07/26/24 Lionel Whitney MD [address] [place] [address] Urology 07/18/24 Assistant Community Director Relationship Specialty Start Date End Date Deandre Monterroso MD [address] [place] [address] PCP - General Family Medicine 07/26/24 Lionel Whitney MD [address] [place] [address] Urology 07/18/24 Assistant Community Director Relationship Specialty Start Date End Date Deandre Monterroso MD [address] [place] [address] PCP - General Family Medicine 07/26/24 Lionel Whitney MD [address] [place] [address] Urology 07/18/24 Assistant Community Director Relationship Specialty Start Date End Date Deandre Monterroso MD [address] [place] [address] PCP - General Family Medicine 07/26/24 Lionel Whitney MD [address] [place] [address] Urology 07/18/24 Ingrid Ugalde RN [address] [facility] [place] [address] Specialty Certified Forklift Operator Hematology/Oncology 08/07/24 Norberto Andrade MD [address] [facility] [place] [address] Physician Hematology/Oncology 08/07/24 Assistant Community Director Relationship Specialty Start Date End Date Deandre Monterroso MD [address] [place] [address] PCP - General Family Medicine 07/26/24 Lionel Whitney MD [address] [place] [id number] Urology 07/18/24 Ingrid Ugalde RN [address] [facility] [place] [address] Specialty Certified Forklift Operator Hematology/Oncology 08/07/24 Norberto Andrade MD [address] [facility] [place] [address] Physician Hematology/Oncology 08/07/24 Assistant Community Director Relationship Specialty Start Date End Date Deandre Monterroso MD [address] [place] [address] PCP - General Family Medicine 07/26/24 Lionel Whitney MD [address] [place] [address] Urology 07/18/24 Ingrid Ugalde RN [address] [facility] [place] [address] Specialty Certified Forklift Operator Hematology/Oncology 08/07/24 Norberto Andrade MD [address] [facility] [place] [address] Physician Hematology/Oncology 08/07/24 Assistant Community Director Relationship Specialty Start Date End Date Deandre Monterroso MD [address] [place] [address] PCP - General Family Medicine 07/26/24 Lionel Whitney MD [address] [place] [address] Urology 07/18/24 Ingrid Ugalde RN [address] [facility] [place] [address] Specialty Certified Forklift Operator Hematology/Oncology 08/07/24 Norberto Andrade MD [address] [facility] [place] [address] Physician Hematology/Oncology 08/07/24 Goals (unrecognized section and content) Goals may [...] and content) Reason Comments New Patient Visit Xgrjcjby-Pxppue-Solm rtension Specialty Diagnoses / Procedures Referred By Kathrine hurd Referred To Contact Diagnoses Uncontrolled hypertension Shortness of breath Procedures ECG 12 Lead Cady Espinosa MD [address] [place] [address] Phone: tel: fax: Referral ID Status Reason Start Date Expiration Date V isits Requested Visits Authorized [id number] Authorized 05/08/2024 05/08/2025 1 1 Reason Comments Follow-up 8w Specialty Diagnoses / Procedures Referred By Kathrine t Referred To Contact Cardiology Diagnoses Uncontrolled hypertension Procedures Follow Up In Cardiology Cady Espinosa MD [address] [address] Phone: tel: fax: Cady Espinosa MD [address] [place] [address] Phone: tel: fax: Referral ID Status Reason Start Date Expiration Date V isits Requested Visits Authorized [id number] Authorized 05/08/2024 05/08/2025 1 1 Reason Comments Bladder Cancer Consult Reason Comments First Time Treatment Education Reason Comments Benefits Investigation Good Ileana Soler,I am your Financial Navigator, Esther. I wanted [...] feel free to stop in or call [phone] for any questions you may have. Reason Comments Bladder Cancer Reason Comments Care Coordination C1D1 treatment follo w up call Reason Comments Follow Up (unrecognized sect ion and content) No Status Records FoundNo Status Records FoundNo Status Records FoundNo Status Records FoundNo Status Records FoundNo Status Records FoundNo Status Records FoundNo Status Records FoundNo Status Records FoundNo Status Records Found INFORMATION SOURCE (unrecogn ized section and content) DATE CREATED AUTHOR 11/27/2022 [facility] DATE CREATED AUTHOR AUTHOR'S ORGANIZ ATION 10/01/2023 [facility] EPIC DATE CREATED AUTHOR AUTHOR'S ORGANIZ ATION 05/23/2024 Raymond Doyle [facility] DATE CREATED AUTHOR AUTHOR'S ORGANIZ ATION 06/01/2024 Raymond Cook [facility] DATE CREATED AUTHOR AUTHOR'S ORGANIZ ATION 06/19/2024 [facility] DATE CREATED AUTHOR AUTHOR'S ORGANIZ ATION 07/12/2024 [facility] DATE CREATED AUTHOR AUTHOR'S ORGANIZ ATION 07/21/2024 [facility] DATE CREATED AUTHOR AUTHOR'S ORGANIZ ATION 08/11/2024 [facility] DATE CREATED AUTHOR AUTHOR'S ORGANIZ ATION 08/12/2024 [facility] DATE CREATED AUTHOR AUTHOR'S ORGANIZ ATION 08/13/2024 [facility] Source Comments (unrecognize d section and content) In the event this informatio n is protected by the Federal Confidentiality of Alcohol and Drug Abuse Patient Records regulations: The Federal rules restrict any use of the information to criminally investigate or prosecute any alcohol or drug abuse patient.[facility] AdministrationIn the event this information is protected by the Federal Confidentiality of Alcohol and Drug Abuse Patient Records regulations: The Federal rules restrict any use of the information to criminally investigate or prosecute any alcohol or drug abuse patient.[facility] AdministrationIn the event this information is protected by the Federal Confidentiality of Alcohol and Drug Abuse Patient Records regulations: The Federal rules restrict any use of the information to criminally investigate or prosecute any alcohol or drug abuse patient.[facility] AdministrationIn the event this information is protected by the Federal Confidentiality of Alcohol and Drug Abuse Patient Records regulations: The Federal rules restrict any use of the information to criminally investigate or prosecute any alcohol or drug abuse patient.[facility] AdministrationIn the event this information is protected by the Federal Confidentiality of Alcohol and Drug Abuse Patient Records regulations: The Federal rules restrict any use of the information to criminally investigate or prosecute any alcohol or drug abuse patient.[facility] AdministrationIn the event this information is protected by the Federal Confidentiality of Alcohol and Drug Abuse Patient Records regulations: The Federal rules restrict any use of the information to criminally investigate or prosecute any alcohol or drug abuse patient.[facility] AdministrationIn the event this information is protected by the Federal Confidentiality of Alcohol and Drug Abuse Patient Records regulations: The Federal rules restrict any use of the information to criminally investigate or prosecute any alcohol or drug abuse patient.[facility] AdministrationIn the event this information is protected by the Federal Confidentiality of Alcohol and Drug Abuse Patient Records regulations: The Federal rules restrict any use of the information to criminally investigate or prosecute any alcohol or drug abuse patient.[facility] AdministrationIn the event this information is protected by the Federal Confidentiality of Alcohol and Drug Abuse Patient Records regulations: The Federal rules restrict any use of the information to criminally investigate or prosecute any alcohol or drug abuse patient.[facility] AdministrationIn the event this information is protected by the Federal Confidentiality of Alcohol and Drug Abuse Patient Records regulations: The Federal rules restrict any use of the information to criminally investigate or prosecute any alcohol or drug abuse patient.[facility] AdministrationIn the event this information is protected by the Federal Confidentiality of Alcohol and Drug Abuse Patient Records regulations: The Federal rules restrict any use of the information to criminally investigate or prosecute any alcohol or drug abuse patient.[facility] AdministrationIn the event this information is protected by the Federal Confidentiality of Alcohol and Drug Abuse Patient Records regulations: The Federal rules restrict any use of the information to criminally investigate or prosecute any alcohol or drug abuse patient.[facility] AdministrationIn the event this information is protected by the Federal Confidentiality of Alcohol and Drug Abuse Patient Records regulations: The Federal rules restrict any use of the information to criminally investigate or prosecute any alcohol or drug abuse patient.[facility] AdministrationIn the event this information is protected by the Federal Confidentiality of Alcohol and Drug Abuse Patient Records regulations: The Federal rules restrict any use of the information to criminally investigate or prosecute any alcohol or drug abuse patient.[facility] FOR RECORDS PERTAINING TO PATIENTS WHO ARE [...] BE BASED ON THE PRIMARY CLINICAL RECORDS. [facility]. provides no warranty or guarantee of the accuracy or completeness of information in this document.
== END 2024-08-17 09:17 | disposition home or self-care (01) ==
LOC: LAB 09:16
PROVIDERS: PCP Family Medicine; Visit Provider Family Medicine
DX: R05.9 Cough, unspecified (principal)
CPT/HCPCS: 87070; 87205

== ENCOUNTER 2024-08-24 10:31 | Outpatient (OUT) | payer MEDICARE, SELFPAY ==
--- NOTE | 2024-08-24 11:07 | P.CN_ITS ---
Consult Note: HPI Data of Consult Patient: known to practice within the last 3 years Requesting Physician: Erin Shelton NP Primary Care Provider: Deandre Staley MD Consult Narrative Reason for consult: left hip pain Narrative: Qamar Durant presents for evaluation of chronic left hip pain. pt reports constant left hip pain 5/10 increasing to 10/10 with standing, walking, transitioning, bending, stairs, and activity. Previous xray consistent with mild to moderate OA of left hip. denies falls or injury. currently utilizing diclofen ac, tizanidine, and hydrocodone with mild benefit without side effects. ODALIS 38%. pt reporting mild relief from prior left SIJ and left hip injection. cc:: CC: Erin Shelton NP Review of Systems ROS Status of ROS 10 or more systems reviewed and unremark able except as noted in history and below Musculoskeletal Reports: joint pain PFSH PFSH Medical History Bladder tumor ?D49.4 - Neoplasm of unspecified behavior of bladder (ICD-10) Carotid bruit ?R09.89 - Other specified symptoms and signs involving the circulatory and respiratory systems (ICD-10) Hip pain ?M25.559 - Pain in unspecified hip (ICD-10) High cholesterol ?E78.00 - Pure hypercholesterolemia, unspecified (ICD-10) Hypothyroidism ?E03.9 - Hypothyroidism, unspecified (ICD-10) COPD (chronic obstructive pulmonary disease) ?J44.9 - Chronic obstructive pulmonary disease, unspecified (ICD-10) Arthritis ?M19.90 - Unspecified osteoarthritis, unspecified site (ICD-10) Anemia ?D64.9 - Anemia, unspecified (ICD-10) Bladder cancer ?C67.9 - Malignant neoplasm of bladder, unspecified (ICD-10) 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 - Other specified disorders of bladder (ICD-10) Neck pain ?M54.2 - Cervicalgia (ICD-10) Low back pain ?M54.50 - Low back pain, unspecified (ICD-10) Osteoarthritis ?M19.90 - Unspecified osteoarthritis, unspecified site (ICD-10) Acid reflux ?K21.9 - Gastro-esophageal reflux disease without esophagitis (ICD-10) Hearing deficit ?H91.90 - Unspecified hearing loss, unspecified ear (ICD-10) Prostate cancer ?C61 - Malignant neoplasm of prostate (ICD-10) Former smoker ?Z87.891 - Personal history of nicotine dependence (ICD-10) Hypertension ?I10 - Essential (primary) hypertension (ICD-10) Surgical History H/O cystoscopy ?Z98.890 - Other specified postprocedural states (ICD-10) S/P epidural steroid injection ?Z92.241 - Personal history of systemic steroid therapy (ICD-10) H/O transurethral resection of bladder tumor (TURBT) ?Z98.890 - Other specified postprocedural states (ICD-10) ?Z86.03 - Personal history of neoplasm of uncertain behavior (ICD-10) History of colonoscopy ?Z98.890 - Other specified postprocedural states (ICD-10) History of arthroscopy of knee ?Z98.890 - Other specified postprocedural states (ICD-10) History of foot surgery ?Z98.890 - Other specified postprocedural states (ICD-10) History of appendectomy ?Z90.49 - Acquired absence of other specified parts of digestive tract (ICD- 10) History of hernia repair ?Z98.890 - Other specified postprocedural states (ICD-10) ?Z87.19 - Personal history of other diseases of the digestive system (ICD-10) S/P cystoscopy ?Z98.890 - Other specified postprocedural states (ICD-10) H/O transurethral resection of bladder tumor (TURBT) (01/14/23) ?Z98.890 - Other specified postprocedural states (ICD-10) ?Z86.03 - Personal history of neoplasm of uncertain behavior (ICD-10) H/O transurethral resection of bladder tumor (TURBT) ?Z98.890 - Other specified postprocedural states (ICD-10) ?Z86.03 - Personal history of neoplasm of uncertain behavior (ICD-10) S/P cervical spinal fusion ?Z98.1 - Arthrodesis status (ICD-10) H/O prostatectomy ?Z90.79 - Acquired absence of other genital organ(s) (ICD-10) History of ankle surgery ?Z98.890 - Other specified postprocedural states (ICD-10) H/O shoulder surgery ?Z98.890 - Other specified postprocedural states (ICD-10) Family History Other Depression Family history of diabetes mellitus Family history of hypertension Social History Within the past year, how often did you have a drink containing alcohol: 2-4 times a month Smoking status: Former smoker Non-prescribed substance use: denies use Previous occupational history: retired Highest level of school completed/degree received: Associate degree: occupational, technical, vocational program Meds Home Medications and Allergies Home Medications ?Medication ?Instructions ?Recorded ?Confirmed ?Type diclofenac sodium 75 mg 75 mg PO BID 11/20/22 08/07/24 History tablet,delayed release fluticasone fur. 100 mcg-umeclid 1 inh inhalation DAILY 11/20/22 08/07/24 History 62.5 mcg-vilant 25 mcg inhalat.powder (Trelegy Ellipta) pantoprazole 40 mg tablet,delayed 40 mg PO DAILY 11/20/22 08/07/24 History release methocarbamol 500 mg tablet 500 mg PO QDAY PRN muscle spasm 04/21/23 08/07/24 History metoprolol tartrate 50 mg tablet 50 mg PO Q12H 04/10/24 08/07/24 History liothyronine 25 mcg tablet 25 mcg PO DAILY 06/27/24 08/07/24 History lisinopril 20 mg tablet 20 mg PO DAILY 06/27/24 08/07/24 History lisinopril 20 1 tab PO DAILY 06/27/24 08/07/24 History mg-hydrochlorothiazide 12.5 mg tablet rosuvastatin 20 mg tablet 20 mg PO DAILY 06/27/24 08/07/24 History tizanidine 4 mg capsule 4 mg PO BID PRN muscle spasticity 06/27/24 08/07/24 History solifenacin 10 mg tablet (Vesicare) 10 mg PO DAILY #7 tabs 07/06/24 08/07/24 Rx Allergies Allergy/AdvReac Type Severity Reaction Status Date / Time codeine Allergy Unknown Hives Verified 08/07/24 09:52 oxycodone (From Percocet) AdvReac Agitated Verified 08/07/24 09:52 Exam Constitutional Documenting provider has reviewed patient's vital signs: yes Common normals: no apparent distress, oriented x3, healthy appearing, alert and well nourished General appearance: cooperative HENMT Common normals: normocephalic, hearing grossly normal bilaterally and moist oral mucous membranes Head and scalp: normocephalic Eye Common normals: PERRL Pupil: PERRL Neck & C-Spine Common normals: full ROM General: normal visual inspection Chest Common normals: inspection of chest normal Respiratory Common normals: normal respiratory effort, no retractions and no use of accessory muscles Back & Pelvis Lumbar spine/lower back: ROM limited Sacroiliac joints: SI joint(s) abnormal Other: left sij mildly positive ai(patricks), gaenslens, thigh thrust, compression test Extremity Left lower extremity: hip joint Other: mild pain with internal and external rotation moderate tenderness over left SIJ Neuro Common normals: oriented x3, CN's II-XII intact bilaterally, moves all extremities, no focal motor deficits, no sensory deficits noted and deep tendon reflexes 2+ bilaterally Sensorium/orientation: alert Motor exam: strength 5/5 throughout and no movement abnormalities noted Psych Common normals: mental status grossly normal, thought process normal, cooperative, affect normal, speech normal and activity/motor behavior normal Speech: normal speech Thought process: normal thought process Results Additional Findings Additional findings: If on a controlled substance or opioids, I have checked an [place] report on this patient and there are no aberrancies noted in the prescribing history.??If on a controlled substance or opioid a drug screen was completed and reviewed within the last year, and if there has not been a drug screen completed we ordered one today to monitor higher risk, state monitored pain medication use. As part of providing excellent, safe, comprehensive care, the following was completed at our patient's visit: 1. A medication reconciliation and review to ensure accurate knowledge of current/active medications, including asking our patients to inform us about any [id number] medications or herbal remedies/nutritional supplements/alternative remedies. 2. A review to specifically ensure our patients have had annual screening for screening for depression, screening for tobacco use, and screening for unhealthy alcohol use. For concerning screenings had a discussion with the patient, provided patient education, and recommended follow-up with primary care provider when appropriate. If patient noted with a risk of falling, they received education on strength, gait, and balance training to prevent future risk of falling. Portions of this note may have been carried over from the previous visit and updated as appropriate. Please note this office utilizes paper charting in addition to the electronic medical record. A list of current medications, vitals, and PMH is available there as the clinical staff outside of myself do not have access to [facility] [employer] charting during the clinic day operations. As part of providing quality comprehensive care the current medications, vitals, and PMH were reviewed in the paper chart. Assessment and Plan Assessment and Plan (1) Greater trochanteric bursitis of left hip: (2) Left hip pain: (3) Osteoarthritis of left hip: (4) Sacroiliitis: Plan left GTB injection with Dr Landa refer to orthopedics for evaluation of left hip OA, pt interested in joint replacement in the future. currently on chemotherapy for bladder CA. continue current medications, risks vs benefits reviewed f/u with Dr Landa
== END 2024-08-24 10:32 | disposition home or self-care (01) ==
LOC: PM 10:31
PROVIDERS: PCP Family Medicine; Visit Provider Nurse Practitioner
DX: M70.62 Trochanteric bursitis, left hip (principal); M25.552 Pain in left hip; M16.12 Unilateral primary osteoarthritis, left hip; M46.1 Sacroiliitis, not elsewhere classified
CPT/HCPCS: G0463

== ENCOUNTER 2024-08-28 12:13 | Outpatient (OUT) | payer MEDICARE, SELFPAY ==
--- NOTE | 2024-08-28 13:23 | P.CN_ITS ---
Consult Note: HPI Data of Consult Patient: known to practice within the last 3 years Consult date: 08/28/24 Requesting Physician: Tamiko Landa MD Primary Care Provider: Deandre Staley MD Consult Narrative Reason for consult: left hip pain Narrative: 74yom who presents for in office injection. continues to have left hip pain, would like in office injection. cc:: CC: Tamiko Landa MD Review of Systems ROS Status of ROS 10 or more systems reviewed and unremark able except as noted in history and below PFSH PFS Medical History Bladder tumor ?D49.4 - Neoplasm of unspecified behavior of bladder (ICD-10) Carotid bruit ?R09.89 - Other specified symptoms and signs involving the circulatory and respiratory systems (ICD-10) Hip pain ?M25.559 - Pain in unspecified hip (ICD-10) High cholesterol ?E78.00 - Pure hypercholesterolemia, unspecified (ICD-10) Hypothyroidism ?E03.9 - Hypothyroidism, unspecified (ICD-10) COPD (chronic obstructive pulmonary disease) ?J44.9 - Chronic obstructive pulmonary disease, unspecified (ICD-10) Arthritis ?M19.90 - Unspecified osteoarthritis, unspecified site (ICD-10) Anemia ?D64.9 - Anemia, unspecified (ICD-10) Bladder cancer ?C67.9 - Malignant neoplasm of bladder, unspecified (ICD-10) 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 - Other specified disorders of bladder (ICD-10) Neck pain ?M54.2 - Cervicalgia (ICD-10) Low back pain ?M54.50 - Low back pain, unspecified (ICD-10) Osteoarthritis ?M19.90 - Unspecified osteoarthritis, unspecified site (ICD-10) Acid reflux ?K21.9 - Gastro-esophageal reflux disease without esophagitis (ICD-10) Hearing deficit ?H91.90 - Unspecified hearing loss, unspecified ear (ICD-10) Prostate cancer ?C61 - Malignant neoplasm of prostate (ICD-10) Former smoker ?Z87.891 - Personal history of nicotine dependence (ICD-10) Hypertension ?I10 - Essential (primary) hypertension (ICD-10) Surgical History H/O cystoscopy ?Z98.890 - Other specified postprocedural states (ICD-10) S/P epidural steroid injection ?Z92.241 - Personal history of systemic steroid therapy (ICD-10) H/O transurethral resection of bladder tumor (TURBT) ?Z98.890 - Other specified postprocedural states (ICD-10) ?Z86.03 - Personal history of neoplasm of uncertain behavior (ICD-10) History of colonoscopy ?Z98.890 - Other specified postprocedural states (ICD-10) History of arthroscopy of knee ?Z98.890 - Other specified postprocedural states (ICD-10) History of foot surgery ?Z98.890 - Other specified postprocedural states (ICD-10) History of appendectomy ?Z90.49 - Acquired absence of other specified parts of digestive tract (ICD- 10) History of hernia repair ?Z98.890 - Other specified postprocedural states (ICD-10) ?Z87.19 - Personal history of other diseases of the digestive system (ICD-10) S/P cystoscopy ?Z98.890 - Other specified postprocedural states (ICD-10) H/O transurethral resection of bladder tumor (TURBT) (01/14/23) ?Z98.890 - Other specified postprocedural states (ICD-10) ?Z86.03 - Personal history of neoplasm of uncertain behavior (ICD-10) H/O transurethral resection of bladder tumor (TURBT) ?Z98.890 - Other specified postprocedural states (ICD-10) ?Z86.03 - Personal history of neoplasm of uncertain behavior (ICD-10) S/P cervical spinal fusion ?Z98.1 - Arthrodesis status (ICD-10) H/O prostatectomy ?Z90.79 - Acquired absence of other genital organ(s) (ICD-10) History of ankle surgery ?Z98.890 - Other specified postprocedural states (ICD-10) H/O shoulder surgery ?Z98.890 - Other specified postprocedural states (ICD-10) Family History Other Depression Family history of diabetes mellitus Family history of hypertension Social History Within the past year, how often did you have a drink containing alcohol: 2-4 times a month Smoking status: Former smoker Non-prescribed substance use: denies use Previous occupational history: retired Highest level of school completed/degree received: Associate degree: occupational, technical, vocational program Meds Home Medications and Allergies Home Medications ?Medication ?Instructions ?Recorded ?Confirmed ?Type diclofenac sodium 75 mg 75 mg PO BID 11/20/22 08/07/24 History tablet,delayed release fluticasone fur. 100 mcg-umeclid 1 inh inhalation DAILY 11/20/22 08/07/24 History 62.5 mcg-vilant 25 mcg inhalat.powder (Trelegy Ellipta) pantoprazole 40 mg tablet,delayed 40 mg PO DAILY 11/20/22 08/07/24 History release methocarbamol 500 mg tablet 500 mg PO QDAY PRN muscle spasm 04/21/23 08/07/24 History metoprolol tartrate 50 mg tablet 50 mg PO Q12H 04/10/24 08/07/24 History liothyronine 25 mcg tablet 25 mcg PO DAILY 06/27/24 08/07/24 History lisinopril 20 mg tablet 20 mg PO DAILY 06/27/24 08/07/24 History lisinopril 20 1 tab PO DAILY 06/27/24 08/07/24 History mg-hydrochlorothiazide 12.5 mg tablet rosuvastatin 20 mg tablet 20 mg PO DAILY 06/27/24 08/07/24 History tizanidine 4 mg capsule 4 mg PO BID PRN muscle spasticity 06/27/24 08/07/24 History solifenacin 10 mg tablet (Vesicare) 10 mg PO DAILY #7 tabs 07/06/24 08/07/24 Rx Allergies Allergy/AdvReac Type Severity Reaction Status Date / Time codeine Allergy Unknown Hives Verified 08/07/24 09:52 oxycodone (From Percocet) AdvReac Agitated Verified 08/07/24 09:52 Exam Narrative Exam Narrative: Psych-alert and oriented x 3.? Attentive and appropriate, constitutionally normal, displays normal mood and affect per situation.? There are no obvious deficits in memory, reasoning, or intellect.? Skin-no obvious rashes, bruising, erythema noted to the patient's area of pain. Extremities- extremities are warm with minimal edema and palpable pulses. Hip-tenderness to palpation is noted over the left hip joint.? Pain is elicited with internal and external rotation of the hip.? Hip provocative maneuvers are positive and consistent with the patient's normal pain.? Coordination remains intact.? Gait remains antalgic. Assessment and Plan Assessment and Plan (1) Greater trochanteric bursitis of left hip: Plan 74yom who presents for in office injection. continues to have left hip pain, would like in office injection. Procedure: Left greater trochanteric bursa injection Medications: Bupivacaine 0.25% 4cc, depomedrol 40mg I explained the details of the procedure to the patient including the risks, benefits and alternatives. We had an informed discussion and the patient verbalized understanding and signed the consent form. All questions were ans wered appropriately.? A time out was performed.? The skin overlying the left lateral hip was prepped with alcohol x3. A sterile syringe containing the above medication was attached to a 25 gauge, 3.5 inch needle under strict aseptic technique. The greater trochanter and point of tenderness was palpated. At this point, the needle was then advanced through the subcutaneous tissue down to os. The needle was withdrawn slightly and the contents of the syringe were gently injected without any resistance. The needle was removed and pressure was applied to the injection site to decrease the incidence of ecchymosis and hematoma formation.? A sterile bandage was applied. Post procedural instructions were given to the patient.
== END 2024-08-28 12:14 | disposition home or self-care (01) ==
LOC: PM 12:14
PROVIDERS: PCP Family Medicine; Visit Provider Anesthesiology
DX: M70.62 Trochanteric bursitis, left hip (principal)
CPT/HCPCS: 20610; J0665; J1010

== ENCOUNTER 2024-09-27 10:42 | Outpatient (OUT) | payer MEDICARE, SELFPAY ==
--- NOTE | 2024-09-27 11:08 | P.CN_ITS ---
Consult Note: HPI Data of Consult Patient: known to practice within the last 3 years Requesting Physician: Erin Shelton NP Primary Care Provider: Deandre Staley MD Consult Narrative Reason for consult: left hip pain Narrative: Qamar Durant presents for evaluation of chronic left hip pain. pt reports constant left hip pain 5/10 increasing to 10/10 with standing, walking, transitioning, bending, stairs, and activity. Previous xray consistent with mild to moderate OA of left hip. hx of lumbar DDD and lumbar stenosis on prior lumbar MRI. denies falls or injury. currently utilizing diclofenac, tizanidine, and hydrocodone-acetaminophen 5-325 with mild benefit without side effects. ODALIS 38%. pt reporting mild relief from prior left SIJ injection, left hip injection, and left GTB injection. cc:: CC: Erin Shelton NP Review of Systems ROS Status of ROS 10 or more systems reviewed and unremark able except as noted in history and below Musculoskeletal Reports: joint pain PFSH PFSH Medical History Bladder tumor ?D49.4 - Neoplasm of unspecified behavior of bladder (ICD-10) Carotid bruit ?R09.89 - Other specified symptoms and signs involving the circulatory and respiratory systems (ICD-10) Hip pain ?M25.559 - Pain in unspecified hip (ICD-10) High cholesterol ?E78.00 - Pure hypercholesterolemia, unspecified (ICD-10) Hypothyroidism ?E03.9 - Hypothyroidism, unspecified (ICD-10) COPD (chronic obstructive pulmonary disease) ?J44.9 - Chronic obstructive pulmonary disease, unspecified (ICD-10) Arthritis ?M19.90 - Unspecified osteoarthritis, unspecified site (ICD-10) Anemia ?D64.9 - Anemia, unspecified (ICD-10) Bladder cancer ?C67.9 - Malignant neoplasm of bladder, unspecified (ICD-10) 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 - Other specified disorders of bladder (ICD-10) Neck pain ?M54.2 - Cervicalgia (ICD-10) Low back pain ?M54.50 - Low back pain, unspecified (ICD-10) Osteoarthritis ?M19.90 - Unspecified osteoarthritis, unspecified site (ICD-10) Acid reflux ?K21.9 - Gastro-esophageal reflux disease without esophagitis (ICD-10) Hearing deficit ?H91.90 - Unspecified hearing loss, unspecified ear (ICD-10) Prostate cancer ?C61 - Malignant neoplasm of prostate (ICD-10) Former smoker ?Z87.891 - Personal history of nicotine dependence (ICD-10) Hypertension ?I10 - Essential (primary) hypertension (ICD-10) Surgical History H/O cystoscopy ?Z98.890 - Other specified postprocedural states (ICD-10) S/P epidural steroid injection ?Z92.241 - Personal history of systemic steroid therapy (ICD-10) H/O transurethral resection of bladder tumor (TURBT) ?Z98.890 - Other specified postprocedural states (ICD-10) ?Z86.03 - Personal history of neoplasm of uncertain behavior (ICD-10) History of colonoscopy ?Z98.890 - Other specified postprocedural states (ICD-10) History of arthroscopy of knee ?Z98.890 - Other specified postprocedural states (ICD-10) History of foot surgery ?Z98.890 - Other specified postprocedural states (ICD-10) History of appendectomy ?Z90.49 - Acquired absence of other specified parts of digestive tract (ICD- 10) History of hernia repair ?Z98.890 - Other specified postprocedural states (ICD-10) ?Z87.19 - Personal history of other diseases of the digestive system (ICD-10) S/P cystoscopy ?Z98.890 - Other specified postprocedural states (ICD-10) H/O transurethral resection of bladder tumor (TURBT) (01/14/23) ?Z98.890 - Other specified postprocedural states (ICD-10) ?Z86.03 - Personal history of neoplasm of uncertain behavior (ICD-10) H/O transurethral resection of bladder tumor (TURBT) ?Z98.890 - Other specified postprocedural states (ICD-10) ?Z86.03 - Personal history of neoplasm of uncertain behavior (ICD-10) S/P cervical spinal fusion ?Z98.1 - Arthrodesis status (ICD-10) H/O prostatectomy ?Z90.79 - Acquired absence of other genital organ(s) (ICD-10) History of ankle surgery ?Z98.890 - Other specified postprocedural states (ICD-10) H/O shoulder surgery ?Z98.890 - Other specified postprocedural states (ICD-10) Family History Other Depression Family history of diabetes mellitus Family history of hypertension Social History Within the past year, how often did you have a drink containing alcohol: 2-4 times a month Smoking status: Former smoker Non-prescribed substance use: denies use Previous occupational history: retired Highest level of school completed/degree received: Associate degree: occupational, technical, vocational program Meds Home Medications and Allergies Home Medications ?Medication ?Instructions ?Recorded ?Confirmed ?Type diclofenac sodium 75 mg 75 mg PO BID 11/20/22 08/07/24 History tablet,delayed release fluticasone fur. 100 mcg-umeclid 1 inh inhalation DAILY 11/20/22 08/07/24 History 62.5 mcg-vilant 25 mcg inhalat.powder (Trelegy Ellipta) pantoprazole 40 mg tablet,delayed 40 mg PO DAILY 11/20/22 08/07/24 History release methocarbamol 500 mg tablet 500 mg PO QDAY PRN muscle spasm 04/21/23 08/07/24 History metoprolol tartrate 50 mg tablet 50 mg PO Q12H 04/10/24 08/07/24 History liothyronine 25 mcg tablet 25 mcg PO DAILY 06/27/24 08/07/24 History lisinopril 20 mg tablet 20 mg PO DAILY 06/27/24 08/07/24 History lisinopril 20 1 tab PO DAILY 06/27/24 08/07/24 History mg-hydrochlorothiazide 12.5 mg tablet rosuvastatin 20 mg tablet 20 mg PO DAILY 06/27/24 08/07/24 History tizanidine 4 mg capsule 4 mg PO BID PRN muscle spasticity 06/27/24 08/07/24 History solifenacin 10 mg tablet (Vesicare) 10 mg PO DAILY #7 tabs 07/06/24 08/07/24 Rx Allergies Allergy/AdvReac Type Severity Reaction Status Date / Time codeine Allergy Unknown Hives Verified 08/07/24 09:52 oxycodone (From Percocet) AdvReac Agitated Verified 08/07/24 09:52 Exam Constitutional Documenting provider has reviewed patient's vital signs: yes Common normals: no apparent distress, oriented x3, healthy appearing, alert and well nourished General appearance: cooperative HENMT Common normals: normocephalic, hearing grossly normal bilaterally and moist oral mucous membranes Head and scalp: normocephalic Eye Common normals: PERRL Pupil: PERRL Neck & C-Spine Common normals: full ROM General: normal visual inspection Chest Common normals: inspection of chest normal Respiratory Common normals: normal respiratory effort, no retractions and no use of accessory muscles Back & Pelvis Lumbar spine/lower back: ROM limited Sacroiliac joints: SI joint(s) abnormal Other: left sij mildly positive ai(patricks), gaenslens, thigh thrust, compression test Extremity Left lower extremity: hip joint Other: mild pain with internal and external rotation mild tenderness over left SIJ Neuro Common normals: oriented x3, CN's II-XII intact bilaterally, moves all extremities, no focal motor deficits, no sensory deficits noted and deep tendon reflexes 2+ bilaterally Sensorium/orientation: alert Motor exam: strength 5/5 throughout and no movement abnormalities noted Psych Common normals: mental status grossly normal, thought process normal, cooperative, affect normal, speech normal and activity/motor behavior normal Speech: normal speech Thought process: normal thought process Results Additional Findings Additional findings: If on a controlled substance or opioids, I have checked an [place]AR[place] report on this patient and there are no aberrancies noted in the prescribing history.??If on a controlled substance or opioid a drug screen was completed and reviewed within the last year, and if there has not been a drug screen completed we ordered one today to monitor higher risk, state monitored pain medication use. As part of providing excellent, safe, comprehensive care, the following was completed at our patient's visit: 1. A medication reconciliation and review to ensure accurate knowledge of current/active medications, including asking our patients to inform us about any [id number] medications or herbal remedies/nutritional supplements/alternative remedies. 2. A review to specifically ensure our patients have had annual screening for screening for depression, screening for tobacco use, and screening for unhealthy alcohol use. For concerning screenings had a discussion with the patient, provided patient education, and recommended follow-up with primary care provider when appropriate. If patient noted with a risk of falling, they received education on strength, gait, and balance training to prevent future risk of falling. Portions of this note may have been carried over from the previous visit and up dated as appropriate. Please note this office utilizes paper charting in addition to the electronic medical record. A list of current medications, vitals, and PMH is available there as the clinical staff outside of myself do not have access to [employer] ( [facility] ) charting during the clinic day operations. As part of providing quality comprehensive care the current medications, vitals, and PMH were reviewed in the paper chart. Assessment and Plan Assessment and Plan (1) Greater trochanteric bursitis of left hip: (2) Left hip pain: (3) Osteoarthritis of left hip: (4) Sacroiliitis: Plan refer to orthopedics for evaluation of left hip OA, pt interested in joint replacement in the future. currently on chemotherapy for bladder CA. continue current medications, risks vs benefits reviewed f/u after orthopedic consultation, could consider left L3,4 L4,5 TFESI
== END 2024-09-27 10:43 | disposition home or self-care (01) ==
LOC: PM 10:42
PROVIDERS: PCP Family Medicine; Visit Provider Nurse Practitioner
DX: M70.62 Trochanteric bursitis, left hip (principal); M25.552 Pain in left hip; M16.12 Unilateral primary osteoarthritis, left hip; M46.1 Sacroiliitis, not elsewhere classified
CPT/HCPCS: G0463

== ENCOUNTER 2024-11-21 09:20 | Outpatient (OUT) | payer MEDICARE, SELFPAY ==
--- OUTSIDE RECORDS SUMMARY | 2024-11-09 12:00 | XMS_ITS | Encounter Summary ---
Author Organization [facility] Address [address] [place] [address] Care Team Providers Care Student Activities Director Name Role Phone Deandre Staley MD Primary Care Provider [phone] Reason for Visit * Imaging (Routine) - Closed Specialty Diagnoses / Procedures Referred By Contac t Referred To Contact Radiology Diagnoses Acute hip pain, left Procedures MR hip left wo IV contrast Jewel Bustillo, PA [address] [place] [address] Phone: tel: fax: [facility] [address] [place] [address] Phone: tel: fax: Referral ID Status Reason Start Date Expiration Date Visits Re quested Visits Authorized [id number] Closed 10/27/2024 04/25/2025 1 1 Encounter Details Date Type Department Care Team (Latest Contact Info) Description 11/09/2024 12:00 PM EDT Ancillary Procedure [facility] [address] [place] [address] Acute hip pain, left Social History Tobacco Use Types Packs/Day Years Used Date Smoking Tobacco: Former Cigarettes Smokeless Tobacco: Never Alcohol Use Standard Drinks/Week Comments Yes 0 (1 standard drink = 0.6 oz pur e alcohol) caffeine 3-4 cups per day Sex and Gender Information Value Date Recorded Sex Assigned at Not on file Legal Sex Male 6:48 PM EDT Gender Identity Not on file Sexual Orientation Not on file documented as of this encounter Plan of Treatment Upcoming Encounters Date Type Department Care Team (Late st Contact Info) Description 12/06/2024 8:45 AM EDT Office Visit [facility] [address] [place] [address] Jr. Man Colmenares DO [address] [place] [address] 09/11/2025 10:45 AM EDT Office Visit [facility] [address] [place] [address] Cristal Mackey MD [address] [place] [address] documented as of this encounter Procedures Procedure Name Priority Date/Time Associated Diagnosis Comments MR HIP LEFT WO IV CONTRAST Routine 11/09/2024 12:41 PM EDT Acute hip pain, left documented in this encounter Results * MR hip left wo IV contrast (11/09/2024 12:41 PM EDT) Anatomical Region Laterality Modality Lower Extremities, Hip Left Magnetic Resonance 11/09/2024 12:5 9 PM EDT Impressions 11/09/2024 1:06 PM EDT No evidence for avascular necrosis or fracture. Mild left trochanteric bursitis. ELECTRONICALLY SIGNED BY: Toribio Sheets MD Narrative 11/09/2024 1:06 PM EDT EXAMINATION/TECHNIQUE: MR HIP LEFT WO IV CONTRAST History: Left hip pain for 6 months. No recent injury. Concern for avascular necrosis. Comparison: Radiographs 07/04/2024. RESULT: RIGHT HIP JOINT: Unremarkable on large field of view imaging. LEFT HIP JOINT: No evidence for fracture or avascular necrosis. Osteophytes. No distinct measurable full-thickness chondral defect. No joint effusion. Fraying in the labrum. SI JOINTS: Degenerative changes. PUBIC SYMPHYSIS: Unremarkable. BONE MARROW: There is no evidence of fracture, bone bruise, marrow replacing lesion or osteonecrosis. TENDONS: The rectus femoris tendons, iliopsoas tendons, hamstring tendons, hip adductor and abductor tendons appear to be intact bilaterally. Small amount of edema/fluid at the left greater trochanter, consistent with bursitis. MUSCLE: Muscle bulk and signal intensity are within normal limits. NERVES: The visualized portions of the lumbosacral plexus and sciatic nerves appear to be within normal limits. VISCERAL PELVIS: Limited evaluation. Extensive colonic diverticulosis. LOWER LUMBAR SPINE: Limited evaluation with degenerative changes. OTHER: No other significant abnormality. Procedure Note Toribio Sheets MD - 11/09/2024 EXAMINATION/TECHNIQUE: MR HIP LEFT WO IV CONTRAST History: Left hip pain for 6 months. No recent injury. Concern foravascular necrosis. Comparison: Radiographs 07/04/2024. RESULT: RIGHT HIP JOINT: Unremarkable on large field of view imaging. LEFT HIP JOINT: No evidence for fracture or avascular necrosis.Osteophytes. No distinct measurable full-thickness chondral defect. Nojoint effusion. Fraying in the labrum. SI JOINTS: Degenerative changes. PUBIC SYMPHYSIS: Unremarkable. BONE MARROW: There is no evidence of fracture, bone bruise, marrowreplacing lesion or osteonecrosis. TENDONS: The rectus femoris tendons, iliopsoas tendons, hamstring tendons,hip adductor and abductor tendons appear to be intact bilaterally. Smallamount of edema/fluid at the left greater trochanter, consistent withbursitis. MUSCLE: Muscle bulk and signal intensity are within normal limits. NERVES: The visualized portions of the lumbosacral plexus and sciaticnerves appear to be within normal limits. VISCERAL PELVIS: Limited evaluation. Extensive colonic diverticulosis. LOWER LUMBAR SPINE: Limited evaluation with degenerative changes. OTHER: No other significant abnormality. IMPRESSION: No evidence for avascular necrosis or fracture. Mild left trochanteric bursitis. ELECTRONICALLY SIGNED BY: Toribio Sheets MD Jewel MARES IMG MRI PROCEDURES Final Resu lt documented in this encounter Visit Diagnoses Diagnosis Acute hip pain, left documented in this encounter Care Teams Student Activities Director Relationship Specialty Start Date End Date Deandre Staley MD PCP - General Family Medicine 01/07/23 documented as of this encounter
--- OUTSIDE RECORDS SUMMARY | 2024-11-10 09:45 | XMS_ITS | Encounter Summary ---
Author Organization [facility] Address [address] [place] [address] Care Team Providers Care Bread Racker Name Role Phone Deandre Staley MD Primary Care Provider [phone] Reason for Referral * Clinic-Administered Medication (Routine) - Closed Specialty Diagnoses / Procedures Referred By Kathrine hurd Referred To Contact Orthopaedic Surgery Diagnoses Trochanteric bursitis of left hip Procedures L Inj/Asp: L greater trochanteric bursa Jewel Bustillo PA [address] [facility] [address] [place] [address] Phone: tel: fax: Referral ID Status Reason Start Date Expiration Date Visits Re quested Visits Authorized [id number] Closed 11/10/2024 05/09/2025 1 1 Reason for Visit * Reason Comments Pain Encounter Details Date Type Department Care Team (Late st Contact Info) Description 11/10/2024 9:45 AM EDT Office Visit [facility] [address] Jewel Bustillo PA [address] [facility] [address] [place] [address] Acute hip pain, left (Primary Dx); Trochanteric bursitis of left hip Social History Tobacco Use Types Packs/Day Years [...] on file documented as of this encounter Progress Notes * SUZAN Mehta - 11/10/2024 9:45 AM EDTAssociated Order(s): L Inj/Asp: L greater trochanteric bursa Post-Procedure Diagnose(s): Trochanteric bursitis of left hip Orthopedic Office note: NAME: Ryder Fountain : 1950 (EST PT) - RECHECK (L) HIP PAIN SINCE 01/2024 (~9 MONTHS) S/P MRI @[facility] 11/09/24 XRAY (L) HIP 07/04/24 [facility] (PUSHED INTO PACS) MRI 11/09/24 IN EPIC LT HIP BURSA INJ 10/06/24 PAIN MANAGEMENT; MULTIPLE INJ TRIED UTILITY TRACTOR OPERATOR; SOME TEMP RELIEF PAIN ~9 MONTHS (01/2024). ADMITS LATERAL DISCOMFORT. ADMITS RADIATION TO KNEE. GOOD ROM. ADMITS TIGHTNESS / STIFFNESS / WEAKNESS. CONTINUES HEP. WAKING HS. CELEBREX - NO RELIEF. ICING / HEATING - TEMPORARY RELIEF. VOLTAREN - SOME RELIEF. RECENTLY FINISHED TX FOR RECENT BLADDER CA Hip Musculoskeletal Exam Gait Gait is normal. Inspection Leg length disparity: no discrepancy Left Erythema: none Ecchymosis: none Edema: none Deformity: none Palpation Left Increased warmth: none Tenderness: present Greater trochanteric region pain: moderate Range of Motion Left Left hip range of motion is within functional limits. Active ROM: normal. Passive ROM: normal. Strength Left Left hip strength is normal. Extension: 5/5. Flexion: 5/5. Internal rotation: 5/5. External rotation: 5/5. Adduction: 5/5. Abduction: 5/5. Abduction is affected by pain. Neurovascular Left Left hip neurovascular exam is normal. Pulses - PT: normal Posterior tibial: 2+ General Constitutional: appears stated age Labored breathing: no Psychiatric: normal mood and affect Neurological: alert and oriented x3 Skin: intact Lymphadenopathy: none No orders of the defined types were placed in this encounter. L Inj/Asp: L greater trochanteric bursa on 11/10/2024 10:17 AM Indications: pain Details: 21 G needle, lateral approach Medications: 80 mg methylPREDNISolone acetate 40 MG/ML; 2 mL bupivacaine PF 0.5 % Outcome: tolerated well, no immediate complications UTILIZING ASEPTIC TECHNIQUE PT GIVEN INJECTION IN LEFT HIP BURSA NEUROVASC INTACT S/P INJ, TOLERATED WELL Procedure, treatment alternatives, risks and benefits explained, specific risks discussed. Consent was given by the patient. Results MRI 11/09/24: IMPRESSION: No evidence for avascular necrosis or fracture. Mild left trochanteric bursitis. ICD-10-CM 1. Acute hip pain, left M25.552 F/U Dr. Colmenares s/p MRI / Hip bursa injection to discuss need for possible: Hip bursa debridement/ gluteus tendon revision. . Surgical and non surgical tx options discussed with conservative measures reviewed. Recommend ICE/ ELEVATION, continued activity modification in interim. Pt would consider surgical intervention to possibly improve symptoms. Assessment & Plan Left lateral hip pain. He continues to experience pain in the bursa region of his hip. Imaging study noted for bursitis. Surgical and nonsurgical treatment options were discussed as he has had injections with [facility] and by myself in September without any significant relief. He is agreeable to try another injection today with activity modification and home exercises discussed. He will follow up with in 4 weeks to discuss potential revision surgery of his glute tendon or bursectomy of the leftlateral hip. Patient, thankful, had no further concerns or questions. Treatment plan: He is agreeable to try another injection today with activity modification and home exercises discussed. Risk and benefit of repeat cortisone injections discussed. Clinical decision making: Surgical and nonsurgical treatment options were discussed as he has had injections with [facility] and by myself in September without any significant relief. Follow-up: The patient will follow up in 4 weeks. Questions answered in laymen terms at the bedside. The diagnosis, home exercise plan and any ongoing restrictions/ recommendations reviewed. If unable to be reached in office, I recommend evaluation at nearest Emergency Room if any symptoms worsened or new symptoms develop for requiring urgent evaluation. Visit was preformed using [employer] pilot speech recognition. documented in this encounter Plan of Treatment Upcoming Encounters Date Type Department Care Team (Late st Contact Info) Description 12/06/2024 8:45 AM EDT Office Visit [facility] [address] [place] [address] Jr. Man Colmenares, [address] [place] [address] 09/11/2025 10:45 AM EDT Office Visit [facility] [address] [place] [address] Cristal Mackey MD [address] [place] [address] documented as of this encounter Procedures Procedure Name Priority Date/Time Associated Diagnosis Comments TN ARTHROCENTESIS ASPIR&/INJ MAJOR JT/BURSA W/O US Routine 11/10/2024 10:17 AM EDT Trochanteric bursitis of left hip documented in this encounter Results * TN ARTHROCENTESIS ASPIR&/INJ MAJOR JT/BURSA W/O US (11/10/2024 10:17 AM EDT) Narrative Jewel Bustillo PA - 11/10/2024 10:17 AM EDT SUZAN Mehta 11/10/2024 5:00 PM L Inj/Asp: L greater trochanteric bursa on 11/10/2024 10:17 AM Indications: pain Details: 21 G needle, lateral approach Medications: 80 mg methylPREDNISolone acetate 40 MG/ML; 2 mL bupivacaine PF 0.5 % Outcome: tolerated well, no immediate complications UTILIZING ASEPTIC TECHNIQUE PT GIVEN INJECTION IN LEFT HIP BURSA NEUROVASC INTACT S/P INJ, TOLERATED WELL Procedure, treatment alternatives, risks and benefits explained, specific risks discussed. Consent was given by the patient. us Jewel MARES IN CLINIC/BEDSIDE ORDERABLES Final Result documented in this encounter Visit Diagnoses Diagnosis Acute hip pain, left- Primary Trochanteric bursitis of left hip documented in this encounter Administered Medications Inactive Administered Medications - up to 3 most recent administrations Medication Order MAR Action Action Date Dose Rate Site bupivacaine PF (Marcaine) 0.5 % injection 2 mL 2 mL, Injection, Once PRN Procedure, Starting on Wed11/10/24 at 1017, For 1 doseIndications:Trochanteric bursitis of left hip Given 11/10/2024 10:17 AM EDT 2 mL methylPREDNISolone acetate (DEPO-Medrol) injection 80 mg 80 mg, Intra-articular, Once PRN Procedure, Starting on Wed11/10/24 at 1017, For 1 doseIndications:Trochanteric bursitis of left hip Given 11/10/2024 10:17 AM EDT 80 mg documented in this encounter Care Teams Bread Racker Relationship Specialty Start Date End Date Deandre Staley MD PCP - General Family Medicine 01/07/23 documented as of this encounter
--- OUTSIDE RECORDS SUMMARY | 2024-11-21 09:22 | XMS_ITS | Encounter Summary ---
Author Organization [facility] Address [address] [place] [address] Care Team Providers Care Medicare Sales Executive Name Role Phone Deandre Staley MD Primary Care Provider [phone] Encounter Details Date Type Department Care Team (Late st Contact Info) Description 09/28/2024 Orders Only [facility] [address] [facility] [address] [place] [id number] Unallocated, [facility] Provider, [address] [place] [address] Social History Tobacco Use Types Packs/Day Years [...] ORTHO [address] [place] [address] Jr. Man Colmenares, DO [address] [place] [address] 09/11/2025 10:45 AM EDT Office Visit [facility] [address] [place] [address] Cristal Mackey MD [address] [place] [address] documented as of this encounter Procedures Procedure Name Priority Date/Time Associated Diagnosis Comments XR HIP 2-3 VIEWS LEFT Routine 09/28/2024 8:42 AM EDT documented in this encounter Results * XR HIP 2-3 VIEWS LEFT (09/28/2024 8:42 AM EDT) Anatomical Region Laterality Modality Radiographic Becky ging us [facility] Provider Unallocated MD WILKINS XR PROCEDURES F inal Result documented in this encounter Visit Diagnoses Not on filedocumented in this encounter Care Teams Medicare Sales Executive Relationship Specialty Start Date End Date Deandre Staley MD PCP - General Family Medicine 01/07/23 documented as of this encounter
--- OUTSIDE RECORDS SUMMARY | 2024-11-21 09:22 | XMS_ITS | Encounter Summary ---
Author Organization [facility] Address [address] [place] [address] Phone Care Team Providers Care Wetland Scientist Name Role Phone Padmini Murillo Primary Care Provider Deandre Staley MD Primary Care Provider [phone] Encounter Details Date Type Department Care Team (Late st Contact Info) Description 04/19/2024 Scanned Document [facility] [address] [place] [address] Scanning, Generic Provider Social History Tobacco Use Types Packs/Day Years Used Date Smoking Tobacco: Never Assessed Sex and Gender Information Value Date Recorded Sex Assigned at Not on file Legal Sex Male 3:43 AM EST Gender Identity Not on file Sexual Orientation Not on file documented as of this encounter Plan of Treatment Upcoming Encounters Date Type Department Care Team (Late st Contact Info) Description 01/04/2025 8:45 AM EDT Appointment [address] [place] [phone] 01/19/2025 10:45 AM EDT Office Visit [address] [place] [phone] Cady Espinosa MD [address] [facility] [address] [place] [address] documented as of this encounter Visit Diagnoses Not on filedocumented in this encounter Care Teams Wetland Scientist Relationship Specialty Start Date End Date Padmini Murillo APRN-CNP [address] [place] [id number] PCP - General 04/19/24 05/07/24 Deandre Staley MD [facility] [place] [address] PCP - General Family Medicine 05/08/24 documented as of this encounter
--- OUTSIDE RECORDS SUMMARY | 2024-11-21 09:22 | XMS_ITS | Clinical Summary ---
Author Organization [facility] Address [address] [place] [address] Care Team Providers Care Alternative Education Teacher Name Role Phone Deandre Staley MD Primary Care Provider [phone] Allergies Active Allergy Reactions Criticality Noted Date Comments Codeine Rash Low 03/30/2017 Other Reaction(s): hives/rashes Other Reaction(s): Agitation, hives/rashes Agitation, Doesn't work Hydrocodone 01/12/2023 Other Reaction(s): anxiety Oxycodone-Acetaminophen 01/12/2023 Other Reaction(s): agitation, irritation pt states this does not work for pt, pt is not allergic to vicodin Tizanidine Hcl 01/12/2023 Other Reaction(s): Unknown Medications pantoprazole (ProtoNix) 40 MG EC tablet Take 40 mg by mouth at bedtime. 3 Active Fluticasone-Um eclidin-Vilant (Trelegy Ellipta) 100-62.5-25 MCG/ACT aerosol powder Inhale. Activ e levothyroxine (Synthroid, Levoxyl) 25 MCG tablet Take 12.5 mcg by mouth in the morning. Take before meals. Active doxazosin (Cardura) 1 MG tablet Take 1 mg by mouth 5 026 Active liothyronine (Cytomel) 25 MCG tablet Take 25 mcg by mouth in the morning. 4 Active lisinopril-hyd roCHLOROthiazi de 20-12.5 MG tablet Take 1 tablet by mouth in the morning. 5 026 Active rosuvastatin (Crestor) 20 MG tablet Take 20 mg by mouth in the morning. 5 026 Active sildenafil (Viagra) 100 MG tablet TAKE 1 TABLET BY MOUTH 1 HR PRIOR TO SEXUAL ACTIVITY NEEDED. DON T EXCEED 1 TABLET IN A 24 HR PERIOD 4 Active solifenacin (VESIcare) 10 MG tablet 5 Active celecoxib (CeleBREX) 200 MG capsuleIndicat ions:Acute hip pain, left Take 1 capsule (200 mg) by mouth Daily Take with food 30 capsule 1 5 025 Active diclofenac (Voltaren) 75 MG EC tablet 3 025 Discontinued Hospital, Clinic, or Other Facility Administered Medication Ordered Dose Route Frequency Start Date End Date Status bupivacaine PF (Marcaine) 0.5 % injection 2 mLIndications:Trocha nteric bursitis of left hip 2 mL IJ Once PRN Procedure 11/10/2024 11/10/2024 Ended methylPREDNISolone acetate (DEPO-Medrol) injection 80 mgIndications:Trocha nteric bursitis of left hip 80 mg IX Once PRN Procedure 11/10/2024 11/10/2024 Ended Active Problems Problem Noted Date Diagnosed Date Bilateral tinnitus 01/12/2023 Bladder cancer 01/12/2023 Cervical spondylosis with radiculopathy 01/13/20 Chronic pain 01/12/2023 Ecchymosis 01/12/2023 Overview (01/12/2023): left leg from [place]pa[place] to ankle- box with snowblower in it slipped off a cart and banged his leg. Foot pink and dry with immediate capillary refill, 4t pedal and poterior tibial pulses. Erectile dysfunction after radical prostatectomy 01/12/2023 HTN (hypertension) 01/12/2023 Glenohumeral arthritis, left 01/12/2023 History of kidney stones 01/12/2023 History of prostate cancer 01/12/2023 Idiopathic gout 01/12/2023 Overview (01/12/2023): lots of inflammation per pt sometimes has to get steroids Paresthesia of skin 01/12/2023 Sensorineural hearing loss, bilateral 01/12/2023 Shoulder impingement syndrome 01/12/2023 Spondylolisthesis, cervical region 01/12/2023 Umbilical hernia 01/12/2023 Essential hypertension 04/20/2012 Osteoarthritis 04/20/2012 Encounters Date Type Department Care Team Description 11/10/2024 9:45 AM EDT Office Visit [facility] [address] [place] [phone] Jewel Bustillo PA Acute hip pain, left (Primary Dx); Trochanteric bursitis of left hip 11/10/2024 Bamboo flowsheet [facility] [address] [place] [phone] Jewel Bustillo PA 11/10/2024 Travel 11/09/2024 12:00 PM EDT Ancillary Procedure [facility] [address] [place] [phone] Acute hip pain, left 11/09/2024 Results Follow-Up [facility] [address] [place] [phone] Jewel Bustillo PA 11/09/2024 Travel 10/27/2024 9:45 AM EDT Office Visit [facility] [address] [place] [phone] Jewel Bustillo PA Acute hip pain, left (Primary Dx) 10/27/2024 Bamboo flowsheet [facility] [address] [place] [phone] Jewel Bustillo PA 10/27/2024 Travel 10/06/2024 9:45 AM EDT Office Visit [facility] [address] [facility] [place] [phone] Jewel Bustillo PA Acute hip pain, left (Primary Dx); Trochanteric bursitis of left hip 10/06/2024 Bamboo flowsheet [facility] [address] [facility] [place] [phone] Jewel Bustillo PA 10/06/2024 Travel 09/28/2024 Orders Only [facility] [address] [place] [address] Unallocated, Elias Morris MD 09/11/2024 10:45 AM EDT Office Visit [facility] [address] [place] [phone] Cristal Mackey MD Seborrheic keratosis (Primary Dx); Lentigines; Epidermal inclusion cyst; History of SCC (squamous cell carcinoma) of skin; Actinic keratosis 09/11/2024 Bamboo flowsheet [facility] [address] [place] [address] Cristal Mackey MD 09/11/2024 Travel from Last 3 Months Immunizations Immunization Administration Dates Next Due Influenza, High Dose Seasonal, Preservative Free 04/03/2020 Influenza, High-dose Seasona l, Quadrivalent, Preservative Free 03/27/2022 Influenza, Seasonal, Quadrivalent, Adjuvanted Influenza, Unspecified 04/14/2019 Influenza, injectable, quadrivalent, preservativ e free 05/22/2019 Influenza, recombinant, quad rivalent, injectable, preservative free 05/29/2019 Moderna Bivalent Booster Vaccination 04/16/2022 Pneumococcal Conjugate PCV 13 07/22/2016 Pneumococcal Polysaccharide PPSV23 10/11/2017 TD (adult), 2 Lf tetanus tox oid, preservative free, adsorbed 09/26/2018 Td (adult), unspecified 03/10/2000 Tdap 06/29/2013 Family History Medical History Relation Name Comments Diabetes Father Hypertension Father Diabetes Mother Relation Name Status Comments Daughter Alive Father Alive Maternal Grandfather Maternal Grandmother Mother Paternal Grandfather Paternal Grandmother Son Alive Social History Tobacco Use Types Packs/Day Years Used Date Smoking Tobacco: Former Cigarettes Smokeless Tobacco: Never Tobacco Cessation:Counseling Given: Not Answered Alcohol Use Standard Drinks/Week Comments Yes 0 (1 standard drink = 0.6 oz pur e alcohol) caffeine 3-4 cups per day Sex and Gender Information Value Date Recorded Sex Assigned at Not on file Legal Sex Male 6:48 PM EDT Gender Identity Not on file Sexual Orientation Not on file Last Filed Vital Signs Vital Sign Reading Time Taken Comments Blood Pressure 150/75 09/30/2023 10:20 AM EDT Pulse - - Temperature - - Respiratory Rate - - Oxygen Saturation - - Inhaled Oxygen Concentration - - Weight 86.2 kg (190 lb) 10/06/2024 9:56 AM EDT Height 182.9 cm (6') 10/06/2024 9:56 AM EDT Body Mass Index 25.77 10/06/2024 9:56 AM EDT Plan of Treatment Upcoming Encounters Date Type Department Care Team (Late st Contact Info) Description 12/06/2024 8:45 AM EDT Office Visit [facility] [address] [place] [address] Jr. Man Colmenares, [address] [place] [address] 09/11/2025 10:45 AM EDT Office Visit [facility] [address] [place] [address] Cristal Mackey MD [address] [place] [address] Health Maintenance Due Date Last Done Comments CT Colonography 1951 Colonoscopy 1950 Colorectal Cancer Screening 1950 FIT-DNA 1950 FIT 1950 FOBT 1950 Sigmoidoscopy 1950 Pneumococcal Vaccine: 65+ Years Completed 8, 07/22/2016 Influenza Vaccine Completed 08/14/2024, , 03/27/2022, Additional history exists Procedures Procedure Name Priority Date/Time Associated Diagnosis Comments CT ARTHROCENTESIS ASPIR&/INJ MAJOR JT/BURSA W/O US Routine 11/10/2024 10:17 AM EDT Trochanteric bursitis of left hip MR HIP LEFT WO IV CONTRAST Routine 11/09/2024 12:41 PM EDT Acute hip pain, left CT ARTHROCENTESIS ASPIR&/INJ MAJOR JT/BURSA W/O US Routine 10/06/2024 10:30 AM EDT Trochanteric bursitis of left hip XR HIP 2-3 VIEWS LEFT Routine 09/28/2024 8:42 AM EDT CRYOTHERAPY SKIN LESION Routine 09/12/19 11:03 AM EDT Actinic keratosis from Last 3 Months Results * CT ARTHROCENTESIS ASPIR&/INJ MAJOR JT/BURSA W/O US (11/10/2024 [...] Jewel MARES IN CLINIC/BEDSIDE ORDERABLES Final Result * MR hip left wo IV contrast [...] bursitis. ELECTRONICALLY SIGNED BY: Toribio Sheets MD us Jewel MARES IMG MRI PROCEDURES Final Resu lt * CT ARTHROCENTESIS ASPIR&/INJ MAJOR JT/BURSA W/O US (10/06/2024 10:30 AM EDT) Narrative Jewel Bustillo PA - 10/06/2024 10:30 AM EDT SUZAN Mehta 10/06/2024 10:34 AM L Inj/Asp: L greater trochanteric bursa on 10/06/2024 10:30 AM Indications: pain Details: 21 G needle, lateral approach Medications: 40 mg methylPREDNISolone Acetate 20 MG/ML Outcome: tolerated well, no immediate complications UTILIZING ASEPTIC TECHNIQUE PT GIVEN INJECTION IN LEFT HIP BURSA NEUROVASC INTACT S/P INJ, TOLERATED WELL Procedure, treatment alternatives, risks and benefits explained, specific risks discussed. Consent was given by the patient. us Jewel MARES IN CLINIC/BEDSIDE ORDERABLES Final Result * XR HIP 2-3 VIEWS LEFT (09/28/2024 8:42 AM EDT) Anatomical Region Laterality Modality Radiographic Becky ging us [facility] Provider Unallocated IMG XR PROCEDURES F inal Result * Cryotherapy, skin lesion (09/11/2024 11:03 AM EDT) us Cristal Mackey MD DERM PROCEDURE ORDERABLES Fin al Result from Last 3 Months Insurance [employer] Care Teams Alternative Education Teacher Relationship Specialty Start Date End Date Deandre Staley MD PCP - General Family Medicine 01/07/23
--- OUTSIDE RECORDS SUMMARY | 2024-11-21 09:22 | XMS_ITS | Clinical Summary ---
Author Organization [facility] Address [address] [place] [address] Phone Care Team Providers Care Die Equipment Operator Name Role Phone Deandre Staley MD Primary Care Provider [phone] Allergies Active Allergy Reactions Criticality Noted Date Comments Codeine Agitation 05/08/2024 Medications diclofenac (Voltaren) 75 mg EC tablet Take 1 tablet (75 mg) by mouth 2 times a day. 3 Active Trelegy Ellipta 100-62.5-25 mcg blister with device Inhale 1 puff early in the morning.. Active HYDROcodone-acetami nophen (Locust) 5-325 mg tablet Take 1 tablet by mouth once daily as needed for severe pain (7 - 10). 4 Active methocarbamol (Robaxin) 500 mg tablet Take 1 tablet (500 mg) by mouth once daily as needed for muscle spasms. 3 Active pantoprazole (ProtoNix) 40 mg EC tablet Take 1 tablet (40 mg) by mouth once daily in the evening. 3 Active liothyronine (Cytomel) 25 mcg tablet Take 0.5 tablets (12.5 mcg) by mouth once daily. 4 Active doxazosin (Cardura) 1 mg tabletIndications:U ncontrolled hypertension Take 1 tablet (1 mg) by mouth once daily at bedtime. 90 tablet 3 5 07/17/19 26 Active lisinopril 20 mg tabletIndications:U ncontrolled hypertension Take 1 tablet (20 mg) by mouth once daily. 90 tablet 3 5 07/17/19 26 Active lisinopriL-hydrochl orothiazide 20-12.5 mg tabletIndications:U ncontrolled hypertension Take 1 tablet by mouth once daily. 90 tablet 3 5 07/17/19 26 Active rosuvastatin (Crestor) 20 mg tabletIndications:M ixed hyperlipidemia Take 1 tablet (20 mg) by mouth once daily. 90 tablet 3 5 07/17/19 26 Active Active Problems Problem Noted Date Diagnosed Date Bilateral carotid artery disease 07/17/2024 Chest pressure 07/17/2024 BMI 26.0-26.9,adult 05/08/2024 Former smoker 05/08/2024 Uncontrolled hypertension 05/08/2024 History of prostate cancer 05/08/2024 Hx of bladder cancer 05/08/2024 History of fractured rib 05/08/2024 Hyperlipidemia 05/08/2024 Unequal blood pressure in upper extremities 04/21 Left carotid bruit 05/08/2024 Medication course changed 05/08/2024 Shortness of breath 05/08/2024 Encounters Date Type Department Care Team Description 09/21/2024 Telephone [facility] Medical Office Building [address] [phone] Jeanna Chisholm LPN re: stress test 09/20/2024 12:19 PM EDT - 09/20/2024 11:59 PM EDT Hospital Encounter [address] [phone] Discharge Disposition: Home 09/20/2024 12:19 PM EDT - 09/20/2024 11:59 PM EDT Hospital Encounter [address] [phone] Discharge Disposition: Home 09/20/2024 12:19 PM EDT - 09/20/2024 11:59 PM EDT Hospital Encounter [address] [phone] Discharge Disposition: Home 09/20/2024 12:18 PM EDT Hospital Encounter [address] [place] [phone] Discharge Disposition: Home 09/20/2024 12:18 PM EDT Hospital Encounter [facility] Nya [facility] [phone] Chest pressure; Shortness of breath Discharge Disposition: Home 09/20/2024 Travel from Last 3 Months Family History Medical History Relation Name Comments Diabetes Father Hypertension Father Hypertension Mother Relation Name Status Comments Father Mother Social History Tobacco Use Types Packs/Day Years Used Date Smoking Tobacco: Former Cigarettes Q uit: 2003 Smokeless Tobacco: Never Tobacco Cessation:Counseling Given: Yes Alcohol Use Standard Drinks/Week Comments Yes 0 (1 standard drink = 0.6 oz pur e alcohol) socially Sex and Gender Information Value Date Recorded Sex Assigned at Not on file Legal Sex Male 3:43 AM EST Gender Identity Not on file Sexual Orientation Not on file Last Filed Vital Signs Vital Sign Reading Time Taken Comments Blood Pressure 142/80 07/17/2024 11:17 AM EST Pulse 72 07/17/2024 10:51 AM EST Temperature - - Respiratory Rate - - Oxygen Saturation - - Inhaled Oxygen Concentration - - Weight 88.6 kg (195 lb 6.4 oz) 07/17/2024 10:51 AM EST Height 182.9 cm (6') 07/17/2024 10:51 AM EST Body Mass Index 26.5 07/17/2024 10:51 AM EST Plan of Treatment Upcoming Encounters Date Type Department Care Team (Late st Contact Info) Description 01/04/2025 8:45 AM EDT Appointment [facility] [address] [place] [place] [phone] 01/19/2025 10:45 AM EDT Office Visit [address] [phone] Robby Saab MD [address] [facility] [address] [place] [address] Health Maintenance Due Date Last Done Comments CT Colonography 1951 Colonoscopy 1951 Colorectal Cancer Screening 1951 FIT-DNA (Cologuard) 1951 FIT 1951 Lipid Panel 1950 Medicare Annual Wellness Visit (AWV) 1950 Sigmoidoscopy 1950 TSH Level 1951 Diabetes Screening 1969 Hepatitis C Screening 1969 RSV High Risk: (Elderly (60+) or Population) (1 - Risk 60-74 years 1-dose series) 2011 Abdominal Aortic Aneurysm (AAA) Screening 02/03/2016 COVID-19 Vaccine ( season) 2025 08/14/2024, 04/16/2022, 03/27/2022, Additional history exists DTaP/Tdap/Td Vaccines (3 - Td or Tdap) 09/26/2028 09/26/2018, 06/29/2013, 03/10/2000 Pneumococcal Vaccine Completed 10/11/2017, 07/22/19 17 Zoster Vaccines Completed 07/13/2023, 03/23/2023 Influenza Vaccine Completed 08/14/2024, , 03/27/2022, Additional history exists HIB Vaccines Aged Out No longer eligi ble based on patient's age to complete this topic HPV Vaccines Aged Out No longer eligi ble based on patient's age to complete this topic Hepatitis A Vaccines Aged Out No long er eligible based on patient's age to complete this topic Hepatitis B Vaccines Aged Out No long er eligible based on patient's age to complete this topic IPV Vaccines Aged Out No longer eligi ble based on patient's age to complete this topic Meningococcal Vaccine Aged Out No trav shukri eligible based on patient's age to complete this topic Rotavirus Vaccines Aged Out No longer eligible based on patient's age to complete this topic Procedures Procedure Name Priority Date/Time Associated Diagnosis Comments STRESS TEST, REGADENOSON W MYOCARDIAL PERFUSION SPECT (MULTI STUDY) Routine 09/20/2024 2:33 PM EDT Chest pressure Shortness of breath from Last 3 Months Results * STRESS TEST, REGADENOSON W MYOCARDIAL PERFUSION SPECT (MULTI STUDY) (09/20/2024 2:33 PM EDT) Anatomical Region Laterality Modality Nuclear Medicine 09/20/2024 3:48 PM EDT 09/20/2024 3:48 PM EDT Impressions 09/20/2024 3:47 PM EDT Normal Lexiscan Myoview cardiac perfusion imaging stress test. No evidence of ischemia or myocardial infarction by perfusion imaging. Normal left ventricular systolic function, ejection fraction 72 %. No exercise provoked significant ischemic ECG changes or chest pain symptoms. Because of poor exercise tolerance and inability to achieve meaningful workload the patient was switched to Lexiscan to improve the sensitivity of the test. No previous study available for comparison Signed by: Carlos Bell 09/20/2024 3:47 PM Dictation workstation: [id number] Narrative 09/20/2024 3:47 PM EDT Interpreted By: Carlos Bell and Giannuzzi Michael STUDY: MYOCARDIAL PERFUSION STRESS TEST WITH EXERCISE CONVERTED TO LEXISCAN Performing facility: [facility] Provider: Robby Saab MD, FACC PCP: Dr. Pascual Staley Supervising provider: Rolly Michaels MD, FACC INDICATION: Signs/Symptoms:ABN EKG, chest pressure. ,R07.89 Other chest pain,R06.02 Shortness of breath HISTORY: Gender: M; Age: 74 y/o ; Height: HT 182.9 cm cm; Weight: WT 88.633 kg kg. High Cholesterol; HTN; Chest Pain; SOB; Quit smoking 21 years ago. COMPARISON: No comparison. ACCESSION NUMBER(S): [id number] ORDERING CLINICIAN: ROBBY SAAB TECHNIQUE: ONE DAY protocol. Stress injection: Date: 09-20-24, 33.7 mCi of Myoview IV at 20 seconds after rapid injection of Lexiscan. Rest injection: Date: 09-20-24, 10.4 mCi of Myoview IV at rest. The patient had a rapid injection of 0.4mg of Lexiscan IV over 10 seconds. Imaging was performed by gated tomographic technique. STRESS TEST DATA: Resting heart rate was 64 BPM. Resting blood pressure was 162/70 mmHg. The patient exercised using a Wm exercise protocol. 1:36 minutes exercised. 96% of MPHR achieved for age. 3.80 METS achieved. Maximum heart rate was 147 BPM. Maximum blood pressure was 166/70 mmHg. DTS 1. TREADMILL TEST TERMINATED DUE TO: Leg Pain. Test converted to Lexiscan. TEST TERMINATED DUE TO: Protocol completed. FINDINGS: STRESS TEST RESULTS: Resting electrocardiogram revealed normal sinus. The patient had no significant ECG changes with maximal stress. The patient did not have chest pains/symptoms during the procedure. There was a normal recovery phase. There were no significant dysrhythmias. Patient did not achieve 85% MPHR so test was immediately converted to Lexiscan. LEXISCAN INFUSION: The patient had a rapid injection of 0.4 mg of Lexiscan IV over 10 seconds. Resting electrocardiogram revealed normal sinus rhythm. The patient had no significant ECG changes with maximal stress. The patient did not have chest pains/symptoms during the procedure. There was a normal recovery phase. There were no significant dysrhythmias. IMAGING RESULTS: Image quality was good. Rest and stress tomographic images were reviewed and revealed normal perfusion without evidence of ischemia, myocardial infarction, or left ventricular dilatation with stress. Overall left ventricular systolic function appeared to be normal without regional wall motion abnormalities. LV ejection fraction was 72 %. TID is 0.78 and is normal. There were evidence of diaphragmatic attenuation artifact. Procedure Note Carlos Bell MD - 09/20/2024 Interpreted By: Carlos Bell and Giannuzzi Michael STUDY: MYOCARDIAL PERFUSION STRESS TEST WITH EXERCISE CONVERTED TO LEXISCAN Performing facility: [facility] Provider: Robby Saab MD, FACC PCP: Dr. Pascual Staley Supervising provider: Rolly Michaels MD, FACC INDICATION: Signs/Symptoms:ABN EKG, chest pressure. ,R07.89 Other chest pain,R06.02 Shortness of breath HISTORY: Gender: M; Age: 74 y/o ; Height: HT 182.9 cm cm; Weight: WT 88.633 kg kg. High Cholesterol; HTN; Chest Pain; SOB; Quit smoking 21 years ago. COMPARISON: No comparison. ACCESSION NUMBER(S): [id number] ORDERING CLINICIAN: ROBBY SAAB TECHNIQUE: ONE DAY protocol. Stress injection: Date: 09-20-24, 33.7 mCi of Myoview IV at 20 seconds after rapid injection of Lexiscan. Rest injection: Date: 09-20-24, 10.4 mCi of Myoview IV at rest. The patient had a rapid injection of 0.4mg of Lexiscan IV over 10 seconds. Imaging was performed by gated tomographic technique. STRESS TEST DATA: Resting heart rate was 64 BPM. Resting blood pressure was 162/70 mmHg. The patient exercised using a Wm exercise protocol. 1:36 minutes exercised. 96% of MPHR achieved for age. 3.80 METS achieved. Maximum heart rate was 147 BPM. Maximum blood pressure was 166/70 mmHg. DTS 1. TREADMILL TEST TERMINATED DUE TO: Leg Pain. Test converted to Lexiscan. TEST TERMINATED DUE TO: Protocol completed. FINDINGS: STRESS TEST RESULTS: Resting electrocardiogram revealed normal sinus. The patient had no significant ECG changes with maximal stress. The patient did not have chest pains/symptoms during the procedure. There was a normal recovery phase. There were no significant dysrhythmias. Patient did not achieve 85% MPHR so test was immediately converted to Lexiscan. LEXISCAN INFUSION: The patient had a rapid injection of 0.4 mg of Lexiscan IV over 10 seconds. Resting electrocardiogram revealed normal sinus rhythm. The patient had no significant ECG changes with maximal stress. The patient did not have chest pains/symptoms during the procedure. There was a normal recovery phase. There were no significant dysrhythmias. IMAGING RESULTS: Image quality was good. Rest and stress tomographic images were reviewed and revealed normal perfusion without evidence of ischemia, myocardial infarction, or left ventricular dilatation with stress. Overall left ventricular systolic function appeared to be normal without regional wall motion abnormalities. LV ejection fraction was 72 %. TID is 0.78 and is normal. There were evidence of diaphragmatic attenuation artifact. IMPRESSION: Normal Lexiscan Myoview cardiac perfusion imaging stress test. No evidence of ischemia or myocardial infarction by perfusion imaging. Normal left ventricular systolic function, ejection fraction 72 %. No exercise provoked significant ischemic ECG changes or chest pain symptoms. Because of poor exercise tolerance and inability to achieve meaningful workload the patient was switched to Lexiscan to improve the sensitivity of the test. No previous study available for comparison Signed by: Carlos Bell 09/20/2024 3:47 PM Dictation workstation: [id number] us Robby Saab MD CV STRESS PROCEDURES Final Resul t from Last 3 Months Insurance # [address] [place] [address] [employer] # [address] [place] [address] [employer] Care Teams Die Equipment Operator Relationship Specialty Start Date End Date Deandre Staley MD [address] [facility] [place] [address] PCP - General Family Medicine 05/08/24
--- OUTSIDE RECORDS SUMMARY | 2024-11-21 09:22 | XMS_ITS | Encounter Summary ---
Author Organization [facility] Address [address] [place] [address] Care Team Providers Care Admission Nurse Name Role Phone Deandre Staley MD Primary Care Provider [phone] Encounter Details Date Type Department Care Team (Latest Contact Info) Description 11/09/2024 Travel Social History Tobacco Use Types Packs/Day Years [...] Office Visit [facility] [address] [place] [address] Jr. Man Colemnares, DO [address] [facility] [address] [place] [address] 09/11/2025 10:45 AM EDT Office Visit [facility] [address] [place] [address] Cristal Mackey MD [address] [place] [address] documented as of this encounter Visit Diagnoses Not on filedocumented in this encounter Care Teams Admission Nurse Relationship Specialty Start Date End Date Deandre Staley MD PCP - General Family Medicine 01/07/23 documented as of this encounter
--- OUTSIDE RECORDS SUMMARY | 2024-11-21 09:22 | XMS_ITS | Encounter Summary ---
Author Organization [facility] Address [address] [facility] [place] [address] Care Team Providers Care Screen Printing Paster Name Role Phone Deandre Staley MD Primary Care Provider [phone] Encounter Details Date Type Department Care Team (Late Contact Info) Description 11/09/2024 Results Follow-Up [facility] [address] [facility] [address] [place] [address] Jewel Bustillo PA [address] [facility] [address] [place] [address] Social History Tobacco Use Types Packs/Day Years [...] 12/06/2024 8:45 AM EDT Office Visit [facility] [address] [place] [address] Jr. Man Colmenares DO [address] [facility] [address] [place] [address] 09/11/2025 10:45 AM EDT Office Visit [facility] [address] [place] [address] Cristal Mackey MD [address] [place] [address] documented as of this encounter Visit Diagnoses Not on filedocumented in this encounter Care Teams Screen Printing Paster Relationship Specialty Start Date End Date Deandre Staley MD PCP - General Family Medicine 01/07/23 documented as of this encounter
--- OUTSIDE RECORDS SUMMARY | 2024-11-21 09:22 | XMS_ITS | Encounter Summary ---
Author Organization [facility] Address [address] [place] [address] Care Team Providers Care Medical Collections Name Role Phone Deandre Staley MD Primary Care Provider [phone] Encounter Details Date Type Department Care Team (Late Contact Info) Description 11/10/2024 Bamboo flowsheet [facility] [phone] [facility] [place] [address] Jewel Bustillo PA [address] [place] [address] Social History Tobacco Use Types Packs/Day Years [...] [address] [place] [address] Jr. Man Colmenares DO [address] [place] [address] 09/11/2025 10:45 AM EDT Office Visit [facility] [address] [place] [address] Cristal Mackey MD [address] [place] [address] documented as of this encounter Visit Diagnoses Not on filedocumented in this encounter Care Teams Medical Collections Relationship Specialty Start Date End Date Deandre Staley MD PCP - General Family Medicine 01/07/23 documented as of this encounter
--- OUTSIDE RECORDS SUMMARY | 2024-11-21 09:22 | XMS_ITS | Clinical Summary ---
Author Organization [employer] [facility] Address [id number] [address] [place] [address] Care Team Providers Care Inside Plant Supervisor Name Role Phone Derick Chew DO Primary Care Provider [phone] Allergies Active Allergy Reactions Criticality Noted Date Comments Codeine 03/30/2017 Medications lisinopril (PRINIVIL,ZESTR IL) 20 mg tablet 02/19/2017 Active allopurinol (ZYLOPRIM) 300 mg tablet 01/27/2017 Active amLODIPine (NORVASC) 5 mg tablet 03/14/2017 Active diclofenac (VOLTAREN) 75 mg EC tablet 01/14/2017 Active omeprazole (PriLOSEC) 20 mg capsule Take 1 capsule (20 mg total) by mouth in the morning. Active pantoprazole (PROTONIX) 40 mg EC tablet Take 1 tablet (40 mg total) by mouth nightly. 10/18/2022 Active Active Problems No known active problems Family History Medical History Relation Name Comments Diabetes Father Diabetes Paternal Grandmother Relation Name Status Comments Father Paternal Grandmother Social History Tobacco Use Types Packs/Day Years Used Date Smoking Tobacco: Former Smokeless Tobacco: Never Tobacco Cessation:Counseling Given: Not Answered Alcohol Use Standard Drinks/Week Comments Yes 0 (1 standard drink = 0.6 oz pur e alcohol) sometimes Childcare Answer Date Recorded Childcare Unknown 11/30/2018 Employment Answer Date Recorded Employment Unknown 11/30/2018 Purpose - Life Answer Date Recorded Purpose and direction in life Unknown Sex and Gender Information Value Date Recorded Sex Assigned at Not on file Legal Sex Male 11:46 AM EDT Gender Identity Not on file Sexual Orientation Not on file Last Filed Vital Signs Vital Sign Reading Time Taken Comments Blood Pressure 147/81 11/02/2022 9:07 AM EDT Pulse 64 11/02/2022 9:07 AM EDT Temperature - - Respiratory Rate 16 11/02/2022 9:07 AM EDT Oxygen Saturation 97% 11/02/2022 9:07 AM EDT Inhaled Oxygen Concentration - - Weight 84.6 kg (186 lb 9.6 oz) 11/02/2022 9:07 A M EDT Height 182.9 cm (6' 0.01 ) 11/02/2022 9:07 AM ED T Body Mass Index 25.3 11/02/2022 9:07 AM EDT Plan of Treatment Health Maintenance Due Date Last Done Comments Depression Screening 1963 Zoster (Shingles) Vaccine (1 of 2) 2001 Abdominal Aortic Aneurysm (A AA) Screen 02/03/2016 Fall Risk Screening 02/03/2016 Colonoscopy 06/06/2017 06/06/2014 Adult BMI Screening 11/03/2023 11/02/2022 Tobacco Screening 11/03/2023 11/02/2022 COVID-19 Vaccine ( - 2023-2 5 season) 2024 04/16/2022, 05/06/2021, 09/19/2020, Additional history exists Influenza Vaccine 02/19/2025 03/27/2022, , 04/03/2020, Additional history exists DTaP,Tdap and Td Vaccines (3 - Td or Tdap) 09/26/2028 09/26/2018, 06/29/2013, 03/10/2000 Medical Devices Not on file Procedures Procedure Name Priority Date/Time Associated Diagnosis Comments COLONOSCOPY Routine 06/06/2014 from Last 3 Months or Most Recently Relevant to Health Maintenance Results * COLONOSCOPY (06/06/2014) Colonoscopy COLONOSCOPY [facility] EXTERNAL NON-INTERFACE D REF LAB us Scanning Provider External HEALTH MAINTENANCE Fi nal Result [facility] EXTERNAL NON-INTERFACED REF LAB [address] [facility] [place] [address] from Last 3 Months or Most Recently Relevant to Health Maintenance Insurance [facility] MEDICARE Care Teams Inside Plant Supervisor Relationship Specialty Start Date End Date Derick Chew DO [address] [place] [address] PCP - General 03/22/17
--- OUTSIDE RECORDS SUMMARY | 2024-11-21 09:22 | XMS_ITS | Encounter Summary ---
Author Organization [facility] Address [address] [place] [address] Care Team Providers Care Brakes Inspector Name Role Phone Deandre Staley MD Primary Care Provider [phone] Encounter Details Date Type Department Care Team (Latest Contact Info) Description 11/10/2024 Travel Social History Tobacco Use Types Packs/Day [...] Office Visit [facility] [address] [place] [address] Jr. Man Colmenares, DO 112 [facility] [address] [place] [address] 09/11/2025 10:45 AM EDT Office Visit [facility] [address] [place] [address] Cristal Mackey MD [address] [place] [address] documented as of this encounter Visit Diagnoses Not on filedocumented in this encounter Care Teams Brakes Inspector Relationship Specialty Start Date End Date Deandre Staley MD PCP - General Family Medicine 01/07/23 documented as of this encounter
--- OUTSIDE RECORDS SUMMARY | 2024-11-21 09:22 | XMS_ITS | Encounter Summary ---
Author Organization [facility] Address [address] [place] [address] Care Team Providers Care Dry Kiln Worker Name Role Phone Deandre Staley MD Primary Care Provider [phone] Encounter Details Date Type Department Care Team (Late Contact Info) Description 02/12/2023 Abstract [facility] [address] [facility] [address] [place] [id number] Jewel Bustillo PA 112 [facility] [address] [place] [address] Social History Tobacco Use Types Packs/Day Years [...] Encounters Date Type Department Care Team (Late Contact Info) Description 12/06/2024 8:45 AM EDT Office Visit [facility] [address] [place] [address] Jr. Man Colmenares DO [address] [facility] [address] [place] [address] 09/11/2025 10:45 AM EDT Office Visit [facility] [address] [place] [address] Cristal Mackey MD [address] [place] [address] documented as of this encounter Visit Diagnoses Not on filedocumented in this encounter Care Teams Dry Kiln Worker Relationship Specialty Start Date End Date Deandre Staley MD PCP - General Family Medicine 01/07/23 documented as of this encounter
--- NOTE | 2024-11-21 09:25 | CT_ITS ---
The [address] [address] Patient Name: MARY DIAZ MRN: [id number] date: 1950 Sex: M Assigned Patient Location: CT Current Patient Location: CT Accession/Order Number: [id number] Exam Date: 11/21/2024 12:17 Report Date: 11/21/2024 12:24 At the request of: YOLANDE MONTERROSO MD Procedure: CT lung screening low-dose LOW-DOSE SCREENING CHEST CT WITHOUT CONTRAST COMPARISON: 04/18/2022 CLINICAL DATA: Former smoker with 32 year history of tobacco use. Spiral axial unenhanced low-dose images were obtained through the chest. Images were reviewed using both narrow and wide window settings. This CT exam was performed using one or more following dose reduction techniques: Automated exposure control, adjustment of the mA and/or kV according to patient size, or use of iterative reconstruction technique. The heart is within normal limits for size. There is no pericardial effusion. Coronary artery disease is seen. Ascending aorta is mildly ectatic. There is mild plaque at the aortic arch, descending aorta and proximal great vessels. There are few tiny noncalcified lymph nodes. There are left calcified hilar granulomas. There is minor endplate spurring at the spine. There is cervicothoracic fusion. Old right lateral rib fractures are seen. There is nonunion at one of the ribs. There is prominent obstructive lung disease with airspace lucencies and subpleural blebs. There is minor linear scarring or atelectasis. No consolidation, pleural effusion or pneumothorax is noted. No soft tissue pulmonary nodularity is seen. There are left-sided calcified granulomas. Limited cuts through the upper abdomen show splenic granulomas. CT/CT lung screening low-dose IMPRESSION: ADVANCED OBSTRUCTIVE LUNG DISEASE WITH SCARRING OR ATELECTASIS. GRANULOMATOUS CHANGES. NO PULMONARY NODULARITY. Lung RADS category 1 - negative Twelve-month low-dose CT follow-up suggested. Impression dictated by: Lupe Campos M.D. 11/21/2024 12:24 PM Dictation Location: [place] [address] Electronically authenticated by: [id number] Y Date: 11/21/2024 12:24
== END 2024-11-21 09:21 | disposition home or self-care (01) ==
LOC: CT 09:20
PROVIDERS: PCP Family Medicine; Visit Provider Family Medicine
DX: Z87.891 Personal history of nicotine dependence (principal); J44.9 Chronic obstructive pulmonary disease, unspecified
CPT/HCPCS: 71271

== ENCOUNTER 2025-01-23 09:19 | Outpatient (OUT) | payer MEDICARE, SELFPAY ==
--- OUTSIDE RECORDS SUMMARY | 2024-12-08 07:30 | XMS_ITS ---
Author Organization [facility] in [place] Address [address] [place] [address] Care Team Providers Care Lap Maker Name Role Phone Gabe Staley Primary Care Provider REASON FOR VISIT BP CHECK Vital Signs Height 70 in 12/08/2024 Blood pressure systolic 126 mm Hg 12/09/19 25 Blood pressure diastolic 72 mm Hg 025 Encounters Encounter Location Date Provider Diagnosis [facility] [address] [place] [address] 12/08/2024 Gabe Staley Essential hypertensi on I10 Assessments Encounter Date Diagnosis (ICD Code) Assessment Notes Treatment Notes Treatment Clinical Notes Section Notes 12/08/2024 Essential hypertension (ICD-10 - I10) Plan Of Treatment No Information Progress Notes * Ryder DIAZ MDOB: [birth year] (74 yo M)Acc No.[id number]:12/08/2024 BP Check Patient: Keenan Ryder MEJIAS Provider: Ricarda Staley (MD PAMELA :1950 A ge:74 Y S ex:Male Date:12/08/2024 Address:[address] [place] [id number] Check In:11:20 AM ESTCheck O ut:11:24 AM EST Subjective: * Chief Complaints: * 1 . BP CHECK. * Active Problem List E66.3 Over weight Modified On:09/18/2022 Status:confirmed M25.561 Right knee pain, uns pecified chronicity Modified On:02/01/2023 Status:confirmed R60.0 Edema of hand Modified On:09/18/2022 Status:confirmed M54.6 Back pain, thoracic Modified On:09/18/2022 Status:confirmed M75.40 Shoulder impingement syndrome Modified On:09/18/2022 Status:confirmed S22.41XA Multiple fractures o f ribs, right side, init for clos fx Modified On:09/18/2022 Status:confirmed U07.1 COVID-19 Modified On:09/18/2022 Status:confirmed C61 Carcinoma of prostat e Modified On:06/03/2023 Status:confirmed 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 Modified On:09/18/2022 Status:confirmed M43.12 Spondylolisthesis, c ervical region Modified On:09/18/2022 Status:confirmed 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, mild Modified On:09/09/2023 Status:confirmed M10.9 Gout Modified On:03/12/2023 Status:confirmed K21.9 Gastro-esophageal re flux disease Modified On:09/21/2022 Status:confirmed I10 Essential hypertensi on Modified On:06/03/2023 Status:confirmed M50.30 Degenerative disc di sease, cervical Modified On:09/18/2022 Status:confirmed J18.9 Pneumonia, unspecifi ed organism Modified On:10/14/2022 Status:confirmed I10 BP (high blood press ure) Modified On:01/29/2023 Status:confirmed 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, right knee Modified On:02/01/2023 Status:confirmed K57.30 Diverticulosis of la rge intestine without perforation or abscess without bleeding Modified On:03/16/2023U Status:confirmed K44.9 Diaphragmatic hernia without obstruction or gangrene Modified On:09/26/2023W/U Status:confirmed K76.89 Liver cyst Modified On:06/03/2023U Status:confirmed E03.9 Hypothyroid Modified On:09/21/2023 Status:confirmed J01.90 Acute sinus infectio n Modified On:08/23/2023 Status:confirmed N45.1 Epididymitis Modified On:11/25/2023U Status:confirmed M48.062 Lumbar stenosis with neurogenic claudication Modified On:03/06/2024U Status:confirmed 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 Assessment: * Assessment: 1. E ssential hypertension - I10 (Primary) Plan: * Treatment: * * Sign off status: Completed Visit Status: C HK (Check Out) true * Provider: Ricarda Staley (LUCY)MD Date: 0 12/08/2024 Generated for Yusef dhillon/Mario/Joshuaitting on: 01/23/2025 09:27 AM EDT
--- OUTSIDE RECORDS SUMMARY | 2025-01-04 05:30 | XMS_ITS ---
Author Organization [facility] in [place] Address [address] [place] [address] Care Team Providers Care Dog Or Horse Racing Official Name Role Phone Gabe Staley Primary Care Provider [phone] Allergies Allergen (clinical drug ingredient) Drug/Non Drug Allergy documented on EMR Reaction Allergy Type Onset Date Status acetaminophen / oxycodone Percocet Unknown Drug Allergy Active codeine Codeine Unknown Drug Allergy Active REASON FOR VISIT ear pain, sore throat, started a few days ago, now has a cough, last night bad pain in throat and ears Medications Medication SIG (Take, Route, Frequency, Duration) Notes Start Date End Date Status Ventolin HFA 108 (90 Base) MCG/ACT 2 puff as needed Inhalation every 4 hrs 01/04/2025 Active Trelegy Ellipta 100-62.5-25 MCG/ACT 1 puff Inhalation Once a day for 90 days Active Methocarbamol 500 MG 1 tablet Orally at bedtime for 30 days 03/28/2024 Active Pantoprazole Sodium 40 MG TAKE 1 TABLET BY MOUTH EVERY DAY IN THE EVENING for 90 days Active Lisinopril 20 MG 1 tablet Orally Once a day for 30 days 11/27/2024 Active Lisinopril-hydroCHLO ROthiazide 20-12.5 MG 1 tablet Orally Once a day TAKE WITH LISINOPRIL 20mg 05/10/2024 Active Doxepin HCl 10 MG 2 capsule at bedtime Orally Once a day for 30 days PRN 06/03/2023 Active HYDROcodone-Acetamin ophen 5-325 MG 1 tablet as needed Orally every 6 hrs PRN Active Diclofenac Sodium 75 MG 1 tablet as needed Orally Twice a day for 90 days PRN Not-Taking Cytomel 25 MCG 1/2 tablet Orally Once a day for 30 days 07/19/2023 Active Colchicine 0.6 MG TAKE 1 TABLET NEEDED for 30 PRN Active Amoxicillin-Pot Clavulanate 875-125 MG 1 tablet Orally every 12 hrs for 10 days 01/04/2025 Active Social History Tobacco Use: Social History Observation Description Date Details (start date - stop date) Former Smoker NA - NA Tobacco Use/Smoking Question Answer Notes Patient is a former smoker AUDIT-C (Standard) Question Answer Notes Did you have a drink containing alcohol in the p ast year? No Points 0 Interpretation Negative Vital Signs Weight 185.4 lbs 01/04/2025 Height 70 in 01/04/2025 Blood pressure systolic 132 mm Hg 01/05/20 25 Blood pressure diastolic 78 mm Hg 025 Temperature 97.7 degrees Fahrenheit 01/05/20 BMI 26.6 kg/m2 01/04/2025 Encounters Encounter Location Date Provider Diagnosis [facility] [address] [place] [address] 01/04/2025 Gabe Staley Acute non-recurrent sinusitis, unspecified location J01.90 and Nasal congestion R09.81 Assessments Encounter Date Diagnosis (ICD Code) Assessment Notes Treatment Notes Treatment Clinical Notes Section Notes 01/04/2025 Acute non-recurrent sinusitis, unspecified location (ICD-10 - J01.90) Rest and drink more liquids, especially water. You may use a humidifier or vaporizer to help keep the drainage moist. Msnj-lym-naarbbl Nasal Saline may help the stuffy and runny nose. Use Ibuprofen and or Tylenol as needed for fever, chills, body aches or pain. Children 5 years old should not be given kuwk-wot-swkefih cough and cold medications such as guaifenesin and dextromethorphan. If you're over age 5, you may try byeo-kfn-fnliiop cold medications such as guaifenesin and dextromethorphan, or multi-symptom cold reliever such as Dayquil to help reduce the symptoms. Antibiotics have been prescribed. You should take these until completed and follow the directions. Antibiotics can sometimes cause upset stomach, and in rare cases, serious allergic reactions or serious gastrointestinal problems. If you start having severe abdominal pain, severe vomiting, or bloody diarrhea, you should be reevaluated by your physician or urgent care immediately. Follow up with your Primary Care Provider or return to clinic if symptoms do not improve within 3-5 days 01/04/2025 Nasal congestion (ICD-10 - R09.81) Plan Of Treatment Medication Medication Name Sig Start Date Stop Date Notes Ventolin HFA 108 (90 Base) MCG/ACT 2 puff as needed Inhalation every 4 hrs 01/04/2025 Amoxicillin-Pot Clavulanate 875-125 MG 1 tablet Orally every 12 hrs for 10 days 01/04/2025 Treatment Notes Assessment Notes Acute non-recurrent sinusiti s, unspecified location Rest and drink more liquids, especially water. You may use a humidifier or vaporizer to help keep the drainage moist. Gklz-lma-hqnxmet Nasal Saline may help the stuffy and runny nose. Use Ibuprofen and or Tylenol as needed for fever, chills, body aches or pain. Children 5 years old should not be given gktb-ewq-ukcvpfn cough and cold medications such as guaifenesin and dextromethorphan. If you're over age 5, you may try qqod-wlk-acxquxu cold medications such as guaifenesin and dextromethorphan, or multi-symptom cold reliever such as Dayquil to help reduce the symptoms. Antibiotics have been prescribed. You should take these until completed and follow the directions. Antibiotics can sometimes cause upset stomach, and in rare cases, serious allergic reactions or serious gastrointestinal problems. If you start having severe abdominal pain, severe vomiting, or bloody diarrhea, you should be reevaluated by your physician or urgent care immediately. Follow up with your Primary Care Provider or return to clinic if symptoms do not improve within 3-5 days Next Appt Details Follow Up: 3-5 days if not i mproving, Reason: Progress Notes * Ryder IDAZ MDOB: [birth year] (74 yo M)Acc No.[id number]:01/04/2025 Progress Note Patient: Ryder ANAND Provider: Ricarda Staley ([facility])MD :1950 A ge:74 Y S ex:Male Date:01/04/2025 Address:[address] [place] [address] , [place], [id number] Check In:09:39 AM ESTCheck O ut:10:05 AM EST Subjective: * Chief Complaints: * E ar pain, sore throatStarted a few days agoNow has a coughLast night bad pain in throat and ears * HPI: S inusitis: The patient complains of symptoms of sinus infection. The symptoms have been present for 1-2 days. The symptoms are moderate. Symptomatic treatment has included OTC medication. Associated symptoms include headache, facial pain, runny nose, nasal congestion. * ROS: S kin: Rash d enies. E NT: Comments S ee HPI for details. C ardiovascular: Edema d enies. P alpitations d enies. ? R espiratory: Chest pain d enies. C ough d enies. W heezing?denies. G astrointestinal: Abdominal pain d enies. N ausea d enies. V omiting d enies. * Active Problem List E66.3 Over weight Modified On:09/18/2022U Status:confirmed M25.561 Right knee pain, uns pecified chronicity Modified On:02/01/2023 Status:confirmed R60.0 Edema of hand Modified On:09/18/2022 Status:confirmed M54.6 Back pain, thoracic Modified On:09/18/2022 Status:confirmed M75.40 Shoulder impingement syndrome Modified On:09/18/2022U Status:confirmed S22.41XA Multiple fractures o f ribs, right side, init for clos fx Modified On:09/18/2022U Status:confirmed U07.1 COVID-19 Modified On:09/18/2022U Status:confirmed C61 Carcinoma of prostat e Modified On:06/03/2023 Status:confirmed 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 Modified On:09/18/2022U Status:confirmed M43.12 Spondylolisthesis, c ervical region Modified On:09/18/2022U Status:confirmed 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, mild Modified On:09/09/2023U Status:confirmed M10.9 Gout Modified On:03/12/2023U Status:confirmed K21.9 Gastro-esophageal re flux disease Modified On:09/21/2022U Status:confirmed I10 Essential hypertensi on Modified On:06/03/2023U Status:confirmed M50.30 Degenerative disc di sease, cervical Modified On:09/18/2022U Status:confirmed J18.9 Pneumonia, unspecifi ed organism Modified On:10/14/2022U Status:confirmed I10 BP (high blood press ure) Modified On:01/29/2023U Status:confirmed 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, right knee Modified On:02/01/2023U Status:confirmed K57.30 Diverticulosis of la rge intestine without perforation or abscess without bleeding Modified On:03/16/2023U Status:confirmed K44.9 Diaphragmatic hernia without obstruction or gangrene Modified On:03/16/2023U Status:confirmed K76.89 Liver cyst Modified On:06/03/2023U Status:confirmed E03.9 Hypothyroid Modified On:09/21/2023 Status:confirmed J01.90 Acute sinus infectio n Modified On:08/23/2023 Status:confirmed N45.1 Epididymitis Modified On:11/25/2023U Status:confirmed M48.062 Lumbar stenosis with neurogenic claudication Modified On:03/06/2024U Status:confirmed 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 knee scope 02/26/23EGD/ Colonoscopy- Dr. Luis 03/10/23Bilateral L4-[address] trans[address] epid[address] steroid injection Dr Landa 03/27/2024 * Hospitalization/Major Diagno stic Procedure: P neumonia 09/2022 * Family History: F ather: , diagnosed with Diabetes mellitus without mention of complication, type II or unspecified type, not stated as uncontrolled, Unspecified essential hypertension. M other: . B rother(s): . S ister(s): alive, depression. S on(s): alive, depression.?Daughter(s): alive. 3 son(s) , 1 daughter(s) . . 1 son and 2 living. * Social History: T obacco Use: T obacco Use/Smoking P atient is a f ormer smoker D rug/Alcohol: A LICHA-C (Standard) D id you have a drink containing alcohol in the past year? N o P oints 0 I nterpretation N egative * Medications: T akingColchicine 0.6 MG Tablet TAKE 1 TABLET NEEDED , Notes to Pharmacist: PRNCytomel(Liothyronine Sodium) 25 MCG Tablet 1/2 tablet Orally Once a day Doxepin HCl 10 MG Capsule 2 capsule at bedtime Orally Once a day , Notes to Pharmacist: PRNHYDROcodone-Acetaminophen 5-325 MG Tablet 1 tablet as needed Orally every 6 hrs , Notes to Pharmacist: PRNLisinopril 20 MG Tablet 1 tablet Orally Once a day Lisinopril-hydroCHLOROthiazide 20-12.5 MG Tablet 1 tablet Orally Once a day , Notes to Pharmacist: TAKE WITH LISINOPRIL 20mgMethocarbamol 500 MG Tablet 1 tablet Orally at bedtime Pantoprazole Sodium 40 MG Tablet Delayed Release TAKE 1 TABLET BY MOUTH EVERY DAY IN THE EVENING Trelegy Ellipta(Rvtsowxpvue-Kipnbfkwh-Hxiyss) 100-62.5-25 MCG/ACT Aerosol Powder Breath Activated 1 puff Inhalation Once a day Taking Colchicine 0.6 MG Tablet TAKE 1 TABLET NEEDED , Notes to Pharmacist: PRNTaking Cytomel(Liothyronine Sodium) 25 MCG Tablet 1/2 tablet Orally Once a day Taking Doxepin HCl 10 MG Capsule 2 capsule at bedtime Orally Once a day , Notes to Pharmacist: PRNTaking HYDROcodone-Acetaminophen 5-325 MG Tablet 1 tablet as needed Orally every 6 hrs , Notes to Pharmacist: PRNTaking Lisinopril 20 MG Tablet 1 tablet Orally Once a day Taking Lisinopril-hydroCHLOROthiazide 20-12.5 MG Tablet 1 tablet Orally Once a day , Notes to Pharmacist: TAKE WITH LISINOPRIL 20mgTaking Methocarbamol 500 MG Tablet 1 tablet Orally at bedtime Taking Pantoprazole Sodium 40 MG Tablet Delayed Release TAKE 1 TABLET BY MOUTH EVERY DAY IN THE EVENING Taking Trelegy Ellipta(Ewfiqdyjppd-Jwbskntwx-Zahfqm) 100-62.5-25 MCG/ACT Aerosol Powder Breath Activated 1 puff Inhalation Once a day Not-Taking/PRNDiclofenac Sodium 75 MG Tablet Delayed Release 1 tablet as needed Orally Twice a day , Notes to Pharmacist: PRNNot-Taking/PRN Diclofenac Sodium 75 MG Tablet Delayed Release 1 tablet as needed Orally Twice a day , Notes to Pharmacist: PRNDiscontinuedAmoxicillin-Pot Clavulanate 875-125 MG Tablet 1 tablet Orally every 12 hrs predniSONE 20 MG Tablet 2 tablets Orally Once a day Medication List reviewed and reconciled with the patientDiscontinued Amoxicillin-Pot Clavulanate 875-125 MG Tablet 1 tablet Orally every 12 hrs Discontinued predniSONE 20 MG Tablet 2 tablets Orally Once a day Medication List reviewed and reconciled with the patient * Allergies: C Marva[Allergies Verified] Objective: * Vitals: W t:185.4lbs, Ht: 70 in, BP:132/78mm Hg, Temp:97.7F, BMI:26.6Index, Ht-cm: 177.8 cm, Wt-k.1 kg. * Examination: G eneral Examination: GENERAL APPEARANCE: in no acute distress, well developed, well nourished. ENT: ear and nose external appearance normal, tympanic membranes clear bilaterally, facial tenderness to palpation over sinuses. EYES: pupils equal, round, reactive to light and accomodations. ORAL CAVITY: mucosa moist. NECK: n anand supple, full range of motion, no cervical lymphadenopathy. LUNGS: c lear to auscultation bilaterally. CARDIO: no murmurs, regular rate and rhythm, S1, S2 normal. ABDOMEN: soft, nontender , not distended, bowel sounds are active. SKIN: no suspicious lesions, warm and dry. EXTREMITIES: no clubbing, cyanosis, or edema. NEUROLOGIC: nonfocal, motor strength of upper/lower extremities intact , sensory exam intact. Assessment: * Assessment: 1. A cute non-recurrent sinusitis, unspecified location - J01.90 (Primary) 2 .?Nasal congestion - R09.81 Plan: * Treatment: * Procedure Codes: * Preventive Medicine: Screenings/Counseling: B TX ACTION PLAN Above Normal BMI Follow-up D ietary management education, guidance, and counseling F ALL RISK SCREENING Fall Risk Assessment: N o falls in the past year * Follow Up: 3 -5 days if not improving * * Sign off status: Completed Visit Status: C HK (Check Out) true * Provider: Ricarda Staley ([facility])MD Date: 0 01/04/2025 Generated for Printi ng/Faxing/eTransmitting on: 0 01/23/2025 09:28 AM EDT History and Physical Notes * Examination Category Sub-Category Detail Notes Category Not es General Examination GENERAL APPEARANCE: in no ac chitimacha distress, well developed, well nourished ENT: ear and nose externa l appearance normal, tympanic membranes clear bilaterally, facial tenderness to palpation over sinuses EYES: pupils equal, round, reactive to light and accomodations NECK: neck supple, full ra nge of motion, no cervical lymphadenopathy CARDIO: no murmurs, regular rate and rhythm, S1, S2 normal LUNGS: clear to auscultatio n bilaterally ABDOMEN: soft, nontender , no t distended, bowel sounds are active NEUROLOGIC: nonfocal, motor stre ngth of upper/lower extremities intact , sensory exam intact SKIN: no suspicious lesion s, warm and dry EXTREMITIES: no clubbing, cyanosi s, or edema ORAL CAVITY: mucosa moist
--- OUTSIDE RECORDS SUMMARY | 2025-01-16 09:45 | XMS_ITS | Encounter Summary ---
Author Organization [facility] Address [address] [place] [address] Care Team Providers Care Landscaping And Groundskeeping Laborer Name Role Phone Deandre Staley MD Primary Care Provider [phone] Reason for Visit * Reason Comments Pain Encounter Details Date Type Department Care Team (Late st Contact Info) Description 01/16/2025 9:45 AM EDT Office Visit [facility] [address] [facility] [place] [id number] Jr. Man Colmenares, DO [address] [address] Trochanteric bursitis of left hip (Primary Dx); Acute hip pain, left Social History Tobacco [...] as of this encounter Progress Notes * Jr. Man Colmenares DO - 01/16/2025 9:45 AM EDT Images from the original note were not included. HISTORY OF PRESENT ILLNESS: EST PT Ryder Fountain is an 74 y.o. @ male. 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- WONDERING WHAT ELSE HE COULD TAKE-C/O LATERAL HIP PAIN- SYMPTOMS WORSE IN THE MORNING-+WAKES HS- PAIN IS CONSTANT- +STIFFNESS WITH PROLONG SITTING-PT IS TAKING OMEGA XL; SOME RELIEF CURRENTLY BEING TX FOR RECENT BLADDER CA ALLERGIES: Allergies Allergen Reactions Hydrocodone Other Reaction(s): anxiety Oxycodone-Acetaminophen Other Reaction(s): agitation, irritation pt states this does not work for pt, pt is not allergic to vicodin Tizanidine Hcl Other Reaction(s): Unknown Codeine Rash Other Reaction(s): hives/rashes Other Reaction(s): Agitation, hives/rashes Agitation, Doesn't work HOME MEDICATIONS: Current Outpatient Medications Medication Instructions Lbdebrbwzfq-Yfvvhiacx-Fyzkax (Trelegy Ellipta) 100-62.5-25 MCG/ACT aerosol powder Inhale. levothyroxine (SYNTHROID, LEVOXYL) 12.5 mcg, Oral, Daily before breakfast liothyronine (CYTOMEL) 25 mcg, Daily RT lisinopril-hydroCHLOROthiazide 20-12.5 MG tablet 1 tablet, Daily RT pantoprazole (PROTONIX) 40 mg, Nightly rosuvastatin (CRESTOR) 20 mg, Daily RT sildenafil (Viagra) 100 MG tablet TAKE 1 TABLET BY MOUTH 1 HR PRIOR TO SEXUAL ACTIVITY NEEDED. DON T EXCEED 1 TABLET IN A 24 HR PERIOD solifenacin (VESIcare) 10 MG tablet PHYSICAL EXAM: Hip Musculoskeletal Exam Gait Gait is normal. [...] and oriented x3 Skin: intact Lymphadenopathy: none Vitals: There is no height or weight on file to calculate BMI. Tobacco Use: Medium Risk (01/16/2025) Patient History Smoking Tobacco Use: Former Smokeless Tobacco Use: Never Passive Exposure: Not on file Alcohol Use: Not on file IMAGING: Procedures No orders of the defined types were placed in this encounter. ASSESSMENT: ICD-10-CM 1. Trochanteric bursitis of left hip M70.62 2. Acute hip pain, left M25.552 PLAN: We have discussed his physical exam, symptoms, and MRI at length. He has been taking omega XL [id number]-gftbwro and had good relief with this. We will continue him on this course will see him back in 6 months if his symptoms persist or worsen we may reinject his left trochanteric bursitis. Questions answered in laymen terms at the bedside. The diagnosis, home exercise plan and any ongoing restrictions/ recommendations reviewed. If unable to be reached in office, I recommend evaluation at nearest Emergency Room if any symptoms worsened or new symptoms develop for requiring urgent evaluation. documented in this encounter Plan of Treatment Upcoming Encounters Date Type Department Care Team (Late st Contact Info) Description 02/27/2025 11:05 AM EDT Office Visit [facility] [address] [place] [address] Cristal Mackey MD [address] [place] [address] 07/17/2025 10:00 AM EST Office Visit [facility] [address] [place] [address] Jr. Man Colmenares DO [address] [facility] [address] [place] [address] 09/11/2025 10:45 AM EDT Office Visit [facility] [address] [place] [address] Cristal Mackey MD [address] [place] [address] documented as of this encounter Visit Diagnoses Diagnosis Trochanteric bursitis of left hip- Primary Acute hip pain, left documented in this encounter Care Teams Landscaping And Groundskeeping Laborer Relationship Specialty Start Date End Date Deandre Staley MD [address] [place] [address] PCP - General Family Medicine 01/10/25 documented as of this encounter
--- OUTSIDE RECORDS SUMMARY | 2025-01-22 07:00 | XMS_ITS ---
Author Organization [facility] [place] Address [address] [place] [address] Care Team Providers Care Sheet Combining Operator Name Role Phone Gabe Staley Primary Care Provider Allergies Allergen (clinical drug ingredient) Drug/Non Drug Allergy documented on EMR Reaction Allergy Type Onset Date Status codeine Codeine does not work Drug Allergy Act barbara REASON FOR VISIT Presents to office alone for c/o body to entire body x1 month Medications Medication SIG (Take, Route, Frequency, Duration) Notes Start Date End Date Status Trelegy Ellipta 100-62.5-25 MCG/ACT 1 puff Inhalation Once a day for 90 days Active Pantoprazole Sodium 40 MG TAKE 1 TABLET BY MOUTH EVERY DAY IN THE EVENING for 90 days Active Methocarbamol 500 MG 1 tablet Orally at bedtime for 30 days 03/28/2024 Active Ventolin HFA 108 (90 Base) MCG/ACT 2 puff as needed Inhalation every 4 hrs 01/04/2025 Active HYDROcodone-Acetaminop hen 5-325 MG 1 tablet as needed Orally every 6 hrs PRN Active Doxepin HCl 10 MG 2 capsule at bedtime Orally Once a day for 30 days PRN 06/03/2023 Active Lisinopril-hydroCHLORO thiazide 20-12.5 MG 1 tablet Orally Once a day TAKE WITH LISINOPRIL 20mg 05/10/2024 Active Lisinopril 20 MG 1 tablet Orally Once a day for 30 days 11/27/2024 Active Cytomel 25 MCG 1/2 tablet Orally Once a day for 30 days 07/19/2023 Active Colchicine 0.6 MG TAKE 1 TABLET NEEDED for 30 PRN Active Social History Tobacco Use: Social History Observation Description Date Details (start date - stop date) Former Smoker NA - NA Tobacco Use/Smoking Question Answer Notes Patient is a former smoker AUDIT-C (Standard) Question Answer Notes Did you have a drink containing alcohol in the p ast year? No Points 0 Interpretation Negative Problems Problem Type SNOMED Code ICD Code Onset Dates Problem Status W/U Status Risk Notes Problem Arthralgia (33409380) Arthralgia (M25.50) Active confirmed Problem Fatigue (65149201) Fatigue (R53.83) Active confirmed Problem Lumbar radiculopathy (006986367) Lumbar radiculopathy (M54.16) Active confirmed Vital Signs Weight 187.4 lbs 01/22/2025 Height 70 in 01/22/2025 Blood pressure systolic 148 mm Hg 01/23/20 25 Blood pressure diastolic 70 mm Hg 025 BMI 26.89 kg/m2 01/22/2025 Encounters Encounter Location Date Provider Diagnosis [facility] [address] [place] [address] 01/22/2025 Gabe Hoy Arthralgia M25.50 ; Lumbar radiculopathy M54.16 and Fatigue R53.83 Assessments Encounter Date Diagnosis (ICD Code) Assessment Notes Treatment Notes Treatment Clinical Notes Section Notes 01/22/2025 Arthralgia (ICD-10 - M25.50) 01/22/2025 Lumbar radiculopathy (ICD-10 - M54.16) 01/22/2025 Fatigue (ICD-10 - R53.83) Plan Of Treatment Pending Test Test Name Order Date HEMOGLOBIN A1C (GLYCO) 01/22/2025 LIPID PANEL (CHOL/TRIG/HDL/LDL) 01/23/20 25 URIC ACID 01/22/2025 RHEUMATOID PANEL 01/22/2025 SED RATE WESTERGREN 01/22/2025 TESTOSTERONE, TOTAL 01/22/2025 THYROID PANEL (T4/TSH/FREE T3) PSA, SCREENING 01/22/2025 CMP (COMP MET ESTRELLA) w/eGFR CKD-EPI 2024 CBC WITH DIFF 01/22/2025 Medications Administered Medication Instructions Date of Administration Dosage Notes Triamcinolone 40 mg/ml 01/22/2025 120 mg Progress Notes * Ryder DIAZ MDOB: [birth year] (74 yo M)Acc No.[id number]:01/22/2025 UNLOCKED PROGRESS NOTE Progress Note Patient: Ryder ANAND Provider: Ricarda Staley ([facility])MD :1950 A ge:74 Y S ex:Male Date:01/22/2025 Address:[address] [place], [place] [phone] Check In:11:03 AM ESTCheck O ut:11:49 AM EST Subjective: * Chief Complaints: * 1 . Presents to office alone for c/o body to entire body x1 month. * HPI: G eneral: feels like whole boddy hurting - stopped diclofenac and is worse since then pain radiating into arms and legs -. * ROS: E ENT: hearing changes d enies. v isual changes d enies.?non-healing mouth sores d enies. s wollen glands or neck lumps d enies. h oarseness d enies. s ore throat d enies. d ifficulty swallowing d enies. n ose bleeds d enies. n jose congestion d enies. e ar ache d enies. e ar discharge?denies. r inging in ears d enies. l ight sensitivity d enies. e ye pain d enies. b lurring d enies. e ye irritation d enies. d ouble vision d enies.?vision loss d enies. G eneral/Constitutional: Sweats: D enies. F atigue d enies. S leep problems d enies. A norexia d enies. M alaise d enies. W eight loss d enies.?Fatigue or Weakness d enies. F ever or Chills d enies. C ardiovascular: Shortness of Breath w/lying flat d enies. L ightheadedness/dizziness d enies. C hest tightness/ heavy pressure d enies. S welling of legs, ankles, or feet d enies. W aking up with shortness of breath d enies. C hest pain denies. P alpitations d enies. W eight gain d enies. R espiratory: Chronic or frequent cough d enies. C oughing up blood?denies. D ifficulty breathing d enies. P roductive cough d enies. S noring?denies. S hortness of breath that awakens from sleep (PND) d enies. C hest pain d enies. S putum production d enies. W heezing d enies. M usculoskeletal: Joint pain d enies. J oint Fluid d enies. B ack pain d enies. K nee pain d enies. N anand pain d enies. J oint Stiffness d enies. M uscle cramps d enies. W eakness of muscles d enies. A rthritis d enies. M uscle aches d enies. P ain in shoulder(s) d enies. S wollen joints d enies. * Medical History: R ight knee pain, unspecified chronicity, Multiple fractures of ribs, right side, init for clos fx, Over weight, Back pain, thoracic, Carcinoma of prostate, Edema of hand, Shoulder impingement syndrome, COVID-19, Spondylosis of cervical spine with radiculopathy, Spondylolisthesis, cervical region, COPD, mild, Gout, Gastro-esophageal reflux disease, Essential hypertension, Degenerative disc disease, cervical. * Surgical History: B ladder Surgery 2021, Neck Surgery 2019, Rt. knee scope 02/26/23, EGD/ Colonoscopy- Dr. Luis 03/10/23, Bilateral L4-[address] trans[address]aminal epidural steroid injection Dr Landa 03/27/2024. * Hospitalization/Major Diagno stic Procedure: P neumonia 09/2022. * Family History: F ather: , diagnosed [...] I nterpretation N egative * Medications: T aking Colchicine 0.6 MG Tablet TAKE 1 TABLET NEEDED , Notes to Pharmacist: PRN, Taking Cytomel(Liothyronine Sodium) 25 MCG Tablet 1/2 tablet Orally Once a day , Taking Doxepin HCl 10 MG Capsule 2 capsule at bedtime Orally Once a day , Notes to Pharmacist: PRN, Taking HYDROcodone-Acetaminophen 5-325 MG Tablet 1 tablet as needed Orally every 6 hrs , Notes to Pharmacist: PRN, Taking Lisinopril 20 MG Tablet 1 tablet Orally Once a day , Taking Lisinopril-hydroCHLOROthiazide 20-12.5 MG Tablet 1 tablet Orally Once a day , Notes to Pharmacist: TAKE WITH LISINOPRIL 20mg, Taking Methocarbamol 500 MG Tablet 1 tablet Orally at bedtime , Taking Pantoprazole Sodium 40 MG Tablet Delayed Release TAKE 1 TABLET BY MOUTH EVERY DAY IN THE EVENING , Taking Trelegy Ellipta(Vnvsblkzzxj-Fuymquuel-Qzxnkt) 100-62.5-25 MCG/ACT Aerosol Powder Breath Activated 1 puff Inhalation Once a day , Taking Ventolin HFA(Albuterol Sulfate HFA) 108 (90 Base) MCG/ACT Aerosol Solution 2 puff as needed Inhalation every 4 hrs , Discontinued Amoxicillin-Pot Clavulanate 875-125 MG Tablet 1 tablet Orally every 12 hrs , Discontinued Diclofenac Sodium 75 MG Tablet Delayed Release 1 tablet as needed Orally Twice a day , Notes to Pharmacist: PRN, Medication List reviewed and reconciled with the patient * Allergies: C odeine: does not work. Objective: * Vitals: W t:187.4lbs, Ht: 70 in, BP:148/70mm Hg, BMI:26.89Index, Ht-cm: 177.8 cm, Wt-k kg. * Examination: P hysical Exam: GENERAL: w ell developed, well nourished, in no acute distress. HEAD: n ormocephalic/atraumatic. EYES: p upils equal, round and reactive to light, conjunctivae and sclerae normal. EARS: n o deformity or lesion of external ear, canals and TM appear normal bilaterally, TM's intact, not inflamed with normal light reflex, hearing grossly normal to conversational speech. NOSE: n o deformity, discharge, inflammation, or lesions.? MOUTH: m ucous membranes moist, normal oropharynx and posterior pharynx without lesions or exudates, tongue normal, dentition normal. NECK: n anand supple, no masses or palpable cervical nodes, trachea midline, thyroid without nodules, masses, tenderness, or enlargement. CHEST: n o chest wall deformity, no chest wall tenderness.? LUNGS: n ormal respiratory effort and clear to auscultation, no wheezes, rales, or rhonchi, good air exchange. CARDIO: r egular rate and rhythm, normal S1 and S2, nor murmur, rub, or gallop. PULSES: n ormal capillary refill. ABDOMEN: s oft, non-distended, non-tender, no masses. MUSCULOSKELETAL: n o deformity or scoliosis noted, normal range of motion, joints normal, no erythema, edema, effusion, or ecchymosis. EXTREMITY: n o clubbing, cyanosis, edema, or deformity with normal ROM in both upper and lower bilateral extremities. NEUROLOGIC: g rossly normal. SKIN: n o rashes, ulcerations, or suspicious lesions. LYMPH NODES: n o cervical adenopathy, nodes normal. MENTAL STATUS: a lert and oriented x3, normal mood and affect. Assessment: * Assessment: 1. A rthralgia - M25.50 (Primary) 2 . L umbar radiculopathy - M54.16 ? 3 . F atigue - R53.83 Plan: * Treatment: 2. L umbar radiculopathy L AB: HEMOGLOBIN A1C (GLYCO) L AB: LIPID PANEL (CHOL/TRIG/HDL/LDL) L AB: URIC ACID L AB: THYROID PANEL (T4/TSH/FREE T3) L AB: PSA, SCREENING L AB: CMP (COMP MET ESTRELLA) w/eGFR CKD-EPI L AB: CBC WITH DIFF 3. F atigue L AB: HEMOGLOBIN A1C (GLYCO) L AB: LIPID PANEL (CHOL/TRIG/HDL/LDL) L AB: URIC ACID L AB: THYROID PANEL (T4/TSH/FREE T3) L AB: PSA, SCREENING L AB: CMP (COMP MET ESTRELLA) w/eGFR CKD-EPI L AB: CBC WITH DIFF * Therapeutic Injections: Triamcinolone 40 mg/ml : 120 mg (Route: Intramuscular) given by MR Shama on right deltoid (Lumbar radiculopathy) * Procedure Codes: J 3301 TMC ACET,PER 10MG. * Preventive Medicine: Screenings/Counseling: B FL ACTION PLAN Above Normal BMI Follow-up D ietary management education, guidance, and counseling See treatment section of progress note for complete details of management plan. F ALL RISK SCREENING Fall Risk Assessment: N o falls in the past year * * Electronic signature of Gabe Staley MD, [id number] on 01/23/2025 at 09:27 AM EDT Sign off status: Pending Visit Status: Mira HOLDEN (Check Out) * Provider: Ricarda Staley ([facility])MD Date: 01/22/2025 Generated for Printi ng/Faxing/eTransmitting on: 01/23/2025 09:27 AM EDT History and Physical Notes * HPI (History of Present Illness) Category Sub-Category Detail Notes Category Not es General feels like whole boddy hurting - stopped diclofenac and is worse since then pain radiating into arms and legs - Examination Category Sub-Category Detail Notes Category Not es Physical Exam GENERAL: well developed, well nourished, in no acute distress HEAD: normocephalic/atraum atic EYES: pupils equal, round and reactive to light, conjunctivae and sclerae normal EARS: no deformity or lesi on of external ear, canals and TM appear normal bilaterally, TM's intact, not inflamed with normal light reflex, hearing grossly normal to conversational speech NOSE: no deformity, discha rge, inflammation, or lesions MOUTH: mucous membranes zach[address] st, normal oropharynx and posterior pharynx without lesions or exudates, tongue normal, dentition normal NECK: neck supple, no mass es or palpable cervical nodes, trachea midline, thyroid without nodules, masses, tenderness, or enlargement CHEST: no chest wall deform ity, no chest wall tenderness LUNGS: normal respiratory e ffort and clear to auscultation, no wheezes, rales, or rhonchi, good air exchange CARDIO: regular rate and rhy thm, normal S1 and S2, nor murmur, rub, or gallop PULSES: normal capillary ref ill ABDOMEN: soft, non-distended, non-tender, no masses RECTAL: MUSCULOSKELETAL: no deformity or scol iosis noted, normal range of motion, joints normal, no erythema, edema, effusion, or ecchymosis EXTREMITY: no clubbing, cyanosi s, edema, or deformity with normal ROM in both upper and lower bilateral extremities NEUROLOGIC: grossly normal SKIN: no rashes, ulceratio ns, or suspicious lesions LYMPH NODES: no cervical adenopat hy, nodes normal MENTAL STATUS: alert and oriented x 3, normal mood and affect
--- OUTSIDE RECORDS SUMMARY | 2025-01-23 09:27 | XMS_ITS | Clinical Summary ---
Author Organization [facility] Address [address] [place] [address] Phone Care Team Providers Care Footwear Factory Worker Name Role Phone Deandre Staley MD Primary Care Provider [phone] Allergies Active Allergy Reactions Criticality Noted Date Comments Codeine Agitation 05/08/2024 Medications diclofenac (Voltaren) 75 mg EC tablet Take 1 tablet (75 mg) by mouth 2 times a day. 3 Active Trelegy Ellipta 100-62.5-25 mcg blister with device Inhale 1 puff early in the morning.. Active HYDROcodone-acetami nophen (Butler) 5-325 mg tablet Take 1 tablet by [...] once daily. 90 tablet 3 5 07/17/19 Active lisinopriL-hydrochl orothiazide 20-12.5 mg tabletIndications:U ncontrolled hypertension Take 1 tablet by mouth once daily. 90 tablet 3 5 07/17/19 Active rosuvastatin (Crestor) 20 mg tabletIndications:M ixed hyperlipidemia Take 1 tablet (20 mg) by mouth once daily. 90 tablet 3 5 07/17/19 Active Active Problems Problem Noted Date Diagnosed [...] Encounters Date Type Department Care Team Description 01/04/2025 Telephone [facility] [address] [address] Sujatha Goddard MA from Last 3 Months Family History Medical History Relation Name Comments Diabetes Father Hypertension Father Hypertension Mother Relation Name Status Comments Father Mother Social History Tobacco Use Types Packs/Day Years Used Date Smoking Tobacco: Former Cigarettes Q uit: 2004 Smokeless Tobacco: Never Tobacco Cessation:Counseling Given: Yes [...] 07/17/2024 10:51 AM EST Plan of Treatment Health Maintenance Due Date Last Done Comments CT Colonography 1951 Colonoscopy 1950 Colorectal Cancer Screening 1950 FIT-DNA (Cologuard) 1951 FIT 1951 Lipid Panel 1950 Medicare Annual Wellness Visit (AWV) 1950 Sigmoidoscopy 1950 TSH Level 1950 MMR Vaccines (1 of 1 - Standard series) 02/03/1952 Diabetes Screening 1969 Hepatitis C Screening 1969 RSV High Risk: (Elderly (60+) or Population) (1 - Risk 60-74 years 1-dose series) 2011 Abdominal Aortic Aneurysm (AAA) Screening 02/03/2016 COVID-19 Vaccine (2023- season) 2025 08/14/2024, 04/16/2022, 03/27/2022, Additional history exists Influenza Vaccine (#1) 2025 , 03/23/2023, 03/27/2022, Additional history exists DTaP/Tdap/Td Vaccines (3 - Td or Tdap) 09/26/2028 09/26/2018, 06/29/2013, 03/10/2000 Pneumococcal Vaccine Completed 10/11/2017, 07/22/19 17 Zoster Vaccines Completed 07/13/2023, 03/23/2023 HIB Vaccines Aged Out No longer eligi [...] on patient's age to complete this topic Insurance # [address] [place] [address] [employer] # [address] [place] [address] [employer] Care Teams Footwear Factory Worker Relationship Specialty Start Date End Date Deandre Staley MD [address] [facility] [place] [address] PCP - General Family Medicine 05/08/24
--- OUTSIDE RECORDS SUMMARY | 2025-01-23 09:28 | XMS_ITS | Encounter Summary ---
Author Organization [facility] Address [address] [place] [address] Phone Care Team Providers Care Interior Design Professional Name Role Phone Padmini Murillo Primary Care Provider Deandre Staley MD Primary Care Provider [phone] Encounter Details Date Type Department Care Team (Late st Contact Info) Description 04/19/2024 Scanned Document [facility] [address] [place] [address] Scanning, Generic Provider Social History Tobacco Use Types Packs/Day Years Used Date Smoking Tobacco: Never Assessed Sex and Gender Information Value Date Recorded Sex Assigned at Not on file Legal Sex Male 3:43 AM EST Gender Identity Not on file Sexual Orientation Not on file documented as of this encounter Plan of Treatment Not on file documented as of this encounter Visit Diagnoses Not on filedocumented in this encounter Care Teams Interior Design Professional Relationship Specialty Start Date End Date Padmini Murillo APRN-CNP [address] [place] [address] PCP - General 04/19/24 05/07/24 Deandre Staley MD [address] [place] [address] PCP - General Family Medicine 05/08/24 documented as of this encounter
--- OUTSIDE RECORDS SUMMARY | 2025-01-23 09:28 | XMS_ITS | Encounter Summary ---
Author Organization [facility] Address [address] [place] [address] Care Team Providers Care Rn Bsn Name Role Phone Deandre Staley MD Primary Care Provider [phone] Deandre Staley MD Primary Care Provider [phone] Encounter Details Date Type Department Care Team (Late st Contact Info) Description 02/12/2023 Abstract [facility] [address] [facility] [address] [place] [phone] Jewel Bustillo, SUZAN [address] [facility] [place] [phone] Social History Tobacco Use Types Packs/Day Years [...] Dermatology [address] [place] [address] Cristal Mackey MD [address] [place] [address] 07/17/2025 10:00 AM EST Office Visit [facility] [address] [facility] [phone] Jr. Man Colmenares, DO [address] [facility] [address] [place] [address] 09/11/2025 10:45 AM EDT Office Visit [facility] [address] [place] [address] Cristal Mackey MD [address] [facility] [address] [place] [address] documented as of this encounter Visit Diagnoses Not on filedocumented in this encounter Care Teams Rn Bsn Relationship Specialty Start Date End Date Deandre Staley MD PCP - General Family Medicine 01/07/23 01/09/25 Deandre Staley MD [address] [place] [address] PCP - General Family Medicine 01/10/25 documented as of this encounter
--- OUTSIDE RECORDS SUMMARY | 2025-01-23 09:28 | XMS_ITS | Encounter Summary ---
Author Organization [facility] Address [address] [place] [address] Care Team Providers Care Principal Accounts Clerk Name Role Phone Deandre Staley MD Primary Care Provider [phone] Deandre Staley MD Primary Care Provider [phone] Encounter Details Date Type Department Care Team (Late st Contact Info) Description 11/09/2024 Results Follow-Up [facility] [address] [facility] [address] [place] [address] Jewel Bustillo, SUZAN [address] [facility] [place] [address] Social History Tobacco Use Types Packs/Day Years [...] Office Visit [facility] [address] [facility] [address] [place] [address] Cristal Mackey MD [address] [facility] [address] [place] [address] 07/17/2025 10:00 AM EST Office Visit [facility] [address] [place] [phone] Jr. Man Colmenares, [address] [facility] [address] [place] [address] 09/11/2025 10:45 AM EDT Office Visit [facility] [address] [place] [phone] Cristal Mackey MD [address] [place] [address] documented as of this encounter Visit Diagnoses Not on filedocumented in this encounter Care Teams Principal Accounts Clerk Relationship Specialty Start Date End Date Deandre Staley MD PCP - General Family Medicine 01/07/23 01/09/25 Deandre Staley MD [address] [place] [address] PCP - General Family Medicine 01/10/25 documented as of this encounter
--- OUTSIDE RECORDS SUMMARY | 2025-01-23 09:28 | XMS_ITS | Encounter Summary ---
Author Organization [facility] Address [address] [place] [address] Care Team Providers Care Cargo Station Worker Name Role Phone Deandre Staley MD Primary Care Provider [phone] Deandre Staley MD Primary Care Provider [phone] Encounter Details Date Type Department Care Team (Late st Contact Info) Description 09/28/2024 Orders Only [facility] [address] [facility] [address] [place] [phone] Unallocated, Noms Provider, [address] [place] [address] Social History Tobacco Use Types Packs/Day Years [...] Dermatology [address] [place] [phone] Cristal Mackey MD [address] [place] [address] 07/17/2025 10:00 AM EST Office Visit [facility] [address] [place] [phone] Jr. Man Colmenares, DO [address] [facility] [address] [place] [address] 09/11/2025 10:45 AM EDT Office Visit [facility] [address] [place] [address] Cristal Mackey MD [address] [place] [address] documented as of this encounter Procedures Procedure Name Priority Date/Time Associated Diagnosis Comments XR HIP 2-3 VIEWS LEFT Routine 09/28/2024 8:42 AM EDT documented in this encounter Results * XR HIP 2-3 VIEWS LEFT (09/28/2024 8:42 AM EDT) Anatomical Region Laterality Modality Radiographic Becky ging us Noms Provider Unallocated IMG XR PROCEDURES F inal Result documented in this encounter Visit Diagnoses Not on filedocumented in this encounter Care Teams Cargo Station Worker Relationship Specialty Start Date End Date Deandre Staley MD PCP - General Family Medicine 01/07/23 01/09/25 Deandre Staley MD [address] [place] [address] PCP - General Family Medicine 01/10/25 documented as of this encounter
--- OUTSIDE RECORDS SUMMARY | 2025-01-23 09:28 | XMS_ITS | Patient Health Record ---
Author Organization [facility] in [place] Address [address] [place] [address] Care Team Providers Care Chicken Catcher Name Role Phone Gabe Staley Primary Care Provider [phone] Padmini Murillo [phone] Allergies Allergen (clinical drug ingredient) Drug/Non Drug Allergy documented on EMR Reaction Allergy Type Onset Date Status codeine Codeine does not work Drug Allergy Act barbara Results Component Value Reference Range Notes PROF CHEM 8 (BAS METB) Reviewed date:05/23/2024 08:34:54 PM Interpretation: Performing Lab: Notes/Report: [facility] , Sodium 137 136-145 mmol/L Potassium 4.3 3.5-5.1 mmol/L Chloride 100 98-107 mmol/L Carbon Dioxide 27.6 21.0-32.0 mmol/L Anion Gap 13.7 Glucose 105 74-106 mg/dL Blood Urea Nitrogen 35.0 7.0-18.0 mg/dL Creatinine 1.50 0.70-1.30 mg/dL Estimated GFR ( Keturah 56 >=60 mL/min/1.73m 2 Estimated GFR (Non- Adwoa 46 >=60 mL/min/1.73m 2 BUN Creatinine Ratio 23.3 Calcium 9.5 8.5-10.1 mg/dL Performing Lab: see note ML - [facility] PROF CHEM 8 (BAS METB) Reviewed date:06/27/2024 12:30:45 PM Interpretation: Performing Lab: Notes/Report: [facility] , Sodium 139 136-145 mmol/L Potassium 4.1 3.5-5.1 mmol/L Chloride 102 98-107 mmol/L Carbon Dioxide 28.6 21.0-32.0 mmol/L Anion Gap 12.5 Glucose 140 74-106 mg/dL Blood Urea Nitrogen 20.0 7.0-18.0 mg/dL Creatinine 1.42 0.70-1.30 mg/dL Estimated GFR ( Keturah 59 >=60 mL/min/1.73m 2 Estimated GFR (Non- Adwoa 49 >=60 mL/min/1.73m 2 BUN Creatinine Ratio 14.1 Calcium 9.9 8.5-10.1 mg/dL Performing Lab: see note - [facility] LB White Blood Cells Reviewed date:08/20/2024 08:36:33 PM Interpretation: Performing Lab: Notes/Report: [facility] , White Blood Cells See Below For Report Wh ite Blood Cells White Blood Cells Moderate White Bloo d Cells Performing Lab: see note LC - [facility] LB Epithelial Cells Reviewed date:08/20/2024 08:36:33 PM Interpretation: Performing Lab: Notes/Report: [facility] , Epithelial Cells See Below For Report Few Epithelial Cells Performing Lab: see note LC - [facility] LB Result 1 Reviewed date:08/20/2024 08:36:33 PM Interpretation: Performing Lab: Notes/Report: [facility] , Result 1 See Below For Report Many gram positive cocci. Result 1 Performing Lab: see note LC - [facility] LB Result 2 Reviewed date:08/20/2024 08:36:33 PM Interpretation: Performing Lab: Notes/Report: [facility] , Result 2 See Below For Report Result 2 Moderate gram negative rods. Performing Lab: see note LC - [facility] LB Result 3 Reviewed date:08/20/2024 08:36:33 PM Interpretation: Performing Lab: Notes/Report: [facility] , Result 3 See Below For Report Result 3 Moderate number of gram negative diplococci. Performing Lab: see note LC - [facility] LB Result 4 Reviewed date:08/20/2024 08:36:33 PM Interpretation: Performing Lab: Notes/Report: [facility] , Result 4 See Below For Report Result 4 PSYCHOLOGICAL OPERATIONS SPECIALIST Performing Lab: see note LC - [facility] LB Gram Stain Evaluation Reviewed date:08/20/2024 08:36:33 PM Interpretation: Performing Lab: Notes/Report: [facility] , Gram Stain Evaluation See Below For Report Gram Stain Evaluation This specimen is of good quality and is acceptable for routine Gram Stain Evaluation bacterial culture. Gram Stain Evaluation This specimen is of good quality and is acceptable for routine Performing Lab: see note [facility] Lower Respiratory Culture Reviewed date:08/20/2024 08:36:33 PM Interpretation: Performing Lab: Notes/Report: [facility] , Lower Respiratory Culture See Below For Report Lower Respiratory Culture WILL FOLLOW Lower Respiratory Culture Routine respiratory natividad Lower Respiratory Culture WILL FOLLOW Lower Respiratory Culture Performed at: [facility] Lower Respiratory Culture WILL FOLLOW Lower Respiratory Culture [address] [place] [id number] Lower Respiratory Culture WILL FOLLOW Lower Respiratory Culture Rivet Sticker: Reilly Pimentel PhD, Phone: [phone] Lower Respiratory Culture WILL FOLLOW Performing Lab: see note SEE REPORT - Vice President Of Advertising Id information not found for OBX-specific multimedia producer legend [facility] CT lung screening low-dose Reviewed date:11/21/2024 04:18:23 PM Interpretation: Performing Lab: Notes/Report: Source Facility: [place] [address] CT Scan Report Signed Patient: MARY DIAZ MR#: [id number] : 1950 Acct:[id number] Age/Sex: 74 / M ADM Date: 11/21/24 Loc: CT Attending Dr: Yolande Staley M.D. Ordering Physician: Yolande Staley M.D. Date of Service: 11/21/24 Procedure(s): CT lung screening low-dose Accession Number(s): [id number] cc: Yolande Staley M.D. [place] [id number] Patient Name: AMRY DIAZ MRN: [id number] date: 1950 Sex: M Assigned Patient Location: CT Current Patient Location: CT Accession/Order Number: [id number] Exam Date: 11/21/2024 12:17 Report Date: 11/21/2024 12:24 At the request of: YOLANDE STALEY MD Procedure: CT lung screening low-dose LOW-DOSE SCREENING CHEST CT WITHOUT CONTRAST COMPARISON: 04/18/2022 CLINICAL DATA: Former smoker with 32 year history of tobacco use. Spiral axial unenhanced low-dose images were obtained through the chest. Images were reviewed using both narrow and wide window settings. This CT exam was performed using one or more following dose reduction techniques: Automated exposure control, adjustment of the mA and/or kV according to patient size, or use of iterative reconstruction technique. The heart is within normal limits for size. There is no pericardial effusion. Coronary artery disease is seen. Ascending aorta is mildly ectatic. There is mild plaque at the aortic arch, descending aorta and proximal great vessels. There are few tiny noncalcified lymph nodes. There are left calcified hilar granulomas. There is minor endplate spurring at the spine. There is cervicothoracic fusion. Old right lateral rib fractures are seen. There is nonunion at one of the ribs. There is prominent obstructive lung disease with airspace lucencies and subpleural blebs. There is minor linear scarring or atelectasis. No consolidation, pleural effusion or pneumothorax is noted. No soft tissue pulmonary nodularity is seen. There are left-sided calcified granulomas. Limited cuts through the upper abdomen show splenic granulomas. CT/CT lung screening low-dose IMPRESSION: ADVANCED OBSTRUCTIVE LUNG DISEASE WITH SCARRING OR ATELECTASIS. GRANULOMATOUS CHANGES. NO PULMONARY NODULARITY. Lung RADS category 1 - negative Twelve-month low-dose CT follow-up suggested. Impression dictated by: Lupe Cmapos M.D. 11/21/2024 12:24 PM Dictation Location: [place] [address] Electronically authenticated by: [id number] Y Date: 11/21/2024 12:24 Dictated By: Lupe Campos M.D. Signed By: 11/21/24 1227 DD/ 1224 TD/TT: Call Out Clerk: [place] [address] CT Scan Report Signed Patient: BART DIAZ MR#: [id number] : 1950 Acct:[id number] Age/Sex: 74 / M ADM Date: 11/21/24 Loc: CT Attending Dr: Arjun Staley M.D. Ordering Physician: Yolande Staley M.D. Date of Service: 11/21/24 Procedure(s): CT holden g screening low-dose Accession Number(s): [id number] cc: Yolande Staley M.D. [address] [address] Patient Name: MARY DIAZ MRN: [id number] date: 1950 Sex: M Assigned Patient Location: CT Current Patient Location: CT Accession/Order Numb er: [id number] Exam Date: 11/21/2024 12:17 Report Date: 11/21/2024 12:24 At the request of: YOLANDE STALEY MD Procedure: CT lung screening low-dose LOW-DOSE SCREENING CHEST CT WITHOUT CONTRAST COMPARISON: 04/18/2022 CLINICAL DATA: Forme r smoker with 32 year history of tobacco use. Spiral axial unenhan mirtha low-dose images were obtained through the chest. Images were reviewed using both narrow and wide window settings. This CT exam was performed using one or more following dose reduction techniques: Automated exposure control, adjustment of the mA and/or kV according to patient size, or use of iterative reconstruction technique. The heart is within normal limits for size. There is no pericardial effusion. Coronary artery dise ase is seen. Ascending aorta is mildly ectatic. There is mild plaque at th e aortic arch, descending aorta and proximal great vessels. There are f ew tiny noncalcified lymph nodes. There are left calcified hilar granulomas. There is minor endplate spurring at the spine. There is cervicothoracic fusion. Old right lateral rib fractures are seen. There is nonunion at one of the ribs. There is prominent obstructive lung disease with airspace lucencies and subpleural blebs. Th ere is minor linear scarring or atelectasis. No consolidation, pleur al effusion or pneumothorax is noted. No soft tissue pulmonary nodularity is seen. There are left-sided calcified granulomas. Limited cuts through the upper abdomen show splenic granulomas. CT/CT lung screening low-dose IMPRESSION: ADVANCED OBSTRUCTIVE LUNG DISEASE WITH SCARRING OR ATELECTASIS. GRANULOMATOUS CHANGES. NO PULMONARY NODULARITY. Lung RADS category 1 - negative Twelve-month low-dos e CT follow-up suggested. Impression dictated by: Lupe Campos M.D. 11/21/2024 12:24 PM Dictation Location: [place] [address] Electronically authenticated by: [id number] Y Date: 11/21/2024 12:24 Dictated By: Lupe Campos M.D. Signed By: 11/21/24 1227 DD/ 1224 TD/TT: Call Out Clerk: OLGA Reviewed date:07/13/2024 05:38:10 PM Interpretation: Performing Lab: Notes/Report: [facility] , Alanine Aminotransferase 29 16-63 U/L Performing Lab: see note ML - [facility] LB SGOT Reviewed date:07/13/2024 05:38:10 PM Interpretation: Performing Lab: Notes/Report: [facility] , Aspartate Amino Transferase 14 15-37 U/L Performing Lab: see note ML - [facility] LB LIPID PROFILE Reviewed date:07/13/2024 05:38:10 PM Interpretation: Performing Lab: Notes/Report: [facility] , Triglycerides 170 <=150 mg/dL Cholesterol 151 <=200 mg/dL HDL Cholesterol 46 40-60 mg/dL <40 mg/dl - HIGH CARDIOVASCULAR RISK > or =60 mg/dl - LOW CARDIOVASCULAR RISK LDL Cholesterol Calculated 71.0 <100 mg/dl OPTIMAL 130-159 mg/dl BORDERLINE HIGH 100-129 mg/dl NEAR OR ABOVE OPTIMAL 160-189 mg/dl HIGH >190 mg/dl VERY HIGH VLDL CHOLESTEROL 34.0 Chol HDL Ratio 3.3 4.4 - 7.1 AVERAGE RISK >11.0 HIGH RISK 7.1 - 11.0 MODERATE RISK 3.3 - 4.4 LOW RISK Performing Lab: see note ML - [facility] LB XR chest 2V Reviewed date:06/27/2024 04:07:24 PM Interpretation: Performing Lab: Notes/Report: Source Facility: [facility]-[address] [place] [address] [place] [address] XRay Report Signed Patient: MARY DIAZ MR#: [id number] : 1950 Acct:[id number] Age/Sex: 74 / M ADM Date: 06/27/24 Loc: PST Attending Dr: Brian Carrington M.D. Ordering Physician: Brian Carrington M.D. Date of Service: 06/27/24 Procedure(s): XR chest 2V Accession Number(s): [id number] cc: Yolande Staley M.D.; Brian Carrington M.D. The [place] [id number] Patient Name: MARY DIAZ MRN: [id number] date: 1950 Sex: M Assigned Patient Location: [facility] Current Patient Location: [facility] Accession/Order Number: [id number] Exam Date: 06/27/2024 10:55 Report Date: 06/27/2024 15:23 At the request of: BRIAN CARRINGTON Procedure: XR chest 2V EXAM: XR chest 2V HISTORY: Preop exam COMPARISON: 09/10/2023 TECHNIQUE: Upright PA and lateral chest x-ray FINDINGS: The heart is not enlarged and the vasculature is not distended. No acute infiltrate, effusion or pneumothorax is identified. Slight chronic changes are seen in the lungs, with flattening of the hemidiaphragms indicating COPD. The osseous structures are grossly intact. Hardware projects over the cervical spine. An anchor suture is seen in the right humeral head. XR/XR chest 2V IMPRESSION: No acute infiltrate or evidence of cardiac decompensation. Mild chronic changes are present. The overall appearance of the chest has not changed significantly. Electronically authenticated by: MURIEL FIGUEROA Date: 06/27/2024 15:23 Dictated By: Muriel Figueroa M.D. Signed By: 06/27/24 1526 DD/ 1523 TD/TT: Call Out Clerk: [place] [address] XRay Report Signed Patient: BART DIAZ MR#: [id number] : 1950 Acct:[id number] Age/Sex: 74 / M ADM Date: 06/27/24 Loc: PST Attending Dr: Jimmy Carrington M.D. Ordering Physician: Brian Carrington M.D. Date of Service: 06/27/24 Procedure(s): XR aziza st 2V Accession Number(s): [id number] cc: Yolande Staley M.D. ; Brian Carrington M.D. The [place] [id number] Patient Name: MARY DIAZ MRN: [id number] date: 1950 Sex: M Assigned Patient Location: [facility] Current Patient Location: [facility] Accession/Order Numb er: [id number] Exam Date: 06/27/2024 10:55 Report Date: 06/27/2024 15:23 At the request of: BRIAN CARRINGTON Procedure: XR chest 2V EXAM: XR chest 2V HISTORY: Preop exam COMPARISON: 09/10/2023 TECHNIQUE: Upright P A and lateral chest x-ray FINDINGS: The heart is not enlarged and the vasculature is not distended. No acute infiltrate, effusion or pneumothorax is identified. Slight chronic changes are seen in the lungs, with flattening of the hemidiaphragms indicating COPD. The osseous structures are grossly intact. Hardware projects over the cervical spine. An anchor suture is seen in the right humeral head. XR/XR chest 2V IMPRESSION: No acute infiltrate or evidence of cardiac decompensation. Mild chronic changes are present. The overall appearance of the chest has not changed significantly. Electronically authenticated by: MURIEL FIGUEROA Date: 06/27/2024 15:23 Dictated By: Muriel Figueroa M.D. Signed By: 06/27/24 1526 DD/ 1523 TD/TT: Call Out Clerk: Prothrombin Time INR Reviewed date:06/27/2024 12:30:45 PM Interpretation: Performing Lab: Notes/Report: [facility] , Prothrombin Time 10.6 9.0-11.6 sec INR 1.00 DESIRED INR: 2.5-3.5 RECURRENT THROMBOSIS 2.0-3.0 CONDITIONS NOT LISTED BELOW 2.5-3.5 FOR PROSTHETIC HEART VALVE REPLACEMENT Performing Lab: see note ML - [facility] LB PTT Reviewed date:06/27/2024 12:30:45 PM Interpretation: Performing Lab: Notes/Report: [facility] , Partial Thromboplastin Time 31.6 22.3-36.2 sec Performing Lab: see note ML - [facility] LB CBC AUTO DIFF Reviewed date:06/27/2024 12:30:45 PM Interpretation: Performing Lab: Notes/Report: [facility] , White Blood Count 9.3 4.0-11.0 10 3/uL Red Blood Count 4.61 4.70-6.10 10 6/uL Hemoglobin 13.9 14.0-18.0 g/dL Hematocrit 42.8 42.0-54.0 % Mean Corpuscular Volume 92.8 80.0-94.0 fL Mean Corpuscular Hemoglobin 30.2 25.9-34.0 pg Mean Corpuscular HGB Conc 32.5 29.9-35.2 g/dL Red Cell Distribution Width 14.4 11.0-15.0 % Platelet Count 272 150-450 10 3/uL Mean Platelet Volume 9.5 9.5-13.5 fL Neutrophils Percent Auto 67.4 43.0-75.0 % Lymphocytes Percent Auto 22.9 20.5-60.0 % Monocytes Percent Auto 7.1 1.7-12.0 % Eosinophils Percent Auto 1.0 0.9-7.0 % Basophils Percent Auto 0.4 0.2-2.0 % Immature Granulocytes Pct Auto 1.2 0.0-0.5 % Neutrophils Absolute Auto 6.3 1.4-6.5 10 3/uL Lymphocytes Absolute Auto 2.1 1.2-3.8 10 3/uL Monocytes Absolute Auto 0.7 0.3-0.8 10 3/uL Eosinophils Absolute Auto 0.1 0.0-0.7 10 3/uL Basophils Absolute Auto 0.0 0.0-0.1 10 3/uL Immature Granulocytes Abs Auto 0.11 0.00-0.03 10 3/uL Performing Lab: see note ML - [facility] LB TSH Reviewed date:02/24/2024 06:15:51 PM Interpretation: Performing Lab: Notes/Report: [facility] , Thyroid Stimulating Hormone 1.124 0.358-3.740 uIU/mL Performing Lab: see note ML - [facility] LB T4 Reviewed date:02/24/2024 06:15:51 PM Interpretation: Performing Lab: Notes/Report: [facility] , T4 Thyroxine 5.10 4.50-12.10 ug/dL Performing Lab: see note ML - [facility] LB FREE T3 Reviewed date:02/24/2024 06:15:51 PM Interpretation: Performing Lab: Notes/Report: [facility] T3 2.99 2.18-3.98 pg/mL Performing Lab: see note ML - [facility] LB XR hip LT min 2V Reviewed date:07/05/2024 07:10:00 PM Interpretation: Performing Lab: Notes/Report: Source Facility: [place] [address] XRay Report Signed Patient: MARY DIAZ MR#: [id number] : 1950 Acct:[id number] Age/Sex: 74 / M ADM Date: 07/04/24 Loc: RAD Attending Dr: Tamiko Osman M.D. Ordering Physician: Tamiko Osman M.D. Date of Service: 07/04/24 Procedure(s): XR hip LT min 2V Accession Number(s): [id number] cc: Tmaiko Osman M.D.; Yolande Staley M.D. [place] [address] Patient Name: MARY DIAZ MRN: [id number] date: 1950 Sex: M Assigned Patient Location: [facility] Current Patient Location: Accession/Order Number: [id number] Exam Date: 07/04/2024 12:10 Report Date: 07/05/2024 05:03 At the request of: TAMIKO OSMAN Procedure: XR hip LT min 2V PROCEDURE: XR hip LT min 2V HISTORY: Left Hip Pain COMPARISON: None. FINDINGS: BONES:Moderate narrowing of the superior joint space. No fracture, dislocation, or significant periarticular degenerative osteophytes. SOFT TISSUES:No visible soft tissue swelling. EFFUSION:None visible. OTHER: Negative. XR/XR hip LT min 2V IMPRESSION: 1. Mild/moderate degenerative joint disease. 2. No acute abnormality. Electronically authenticated by: SHIRAZ SCHILLING Date: 07/05/2024 05:03 Dictated By: Shiraz Schilling M.D. Signed By: 07/05/24505 DD/ 2 TD/TT: Call Out Clerk: [place] [address] XRay Report Signed Patient: BART DIAZ MR#: [id number] : 1950 Acct:[id number] Age/Sex: 74 / M ADM Date: 07/04/24 Loc: RAD Attending Dr: Rosalba Osman M.D. Ordering Physician: Tamiko Osman M.D. Date of Service: 07/04/24 Procedure(s): XR hip LT min 2V Accession Number(s): [id number] cc: Marvin Osman M.D.; Yolande Staley M.D. The [place] [address] Patient Name: MARY DIAZ MRN: [id number] date: 1950 Sex: M Assigned Patient Location: [facility] Current Patient Location: Accession/Order Numb er: [id number] Exam Date: 07/04/2024 12:10 Report Date: 07/05/2024 05:03 At the request of: TAMIKO OSMAN Procedure: XR hip LT min 2V PROCEDURE: XR hip LT min 2V HISTORY: Left Hip Pain COMPARISON: None. FINDINGS: BONES:Moderate narrowing of the superior joint space. No fracture, dislocation, or significant periarticular degenerative osteophytes. SOFT TISSUES:No visi ble soft tissue swelling. EFFUSION:None visible. OTHER: Negative. XR/XR hip LT min 2V IMPRESSION: 1. Mild/moderate degenerative joint disease. 2. No acute abnormality. Electronically authenticated by: SHIRAZ SCHILLING Date: 07/05/2024 05:03 Dictated By: Shiraz Schilling M.D. Signed By: 07/05/24505 DD/ 2 TD/TT: Call Out Clerk: Reason For Referral Diagnosis 1 Essential hypertensi on (I10) Referral Organization [facility] Referring Provider First Name Padmini Referring Provider Last Name Chidi [facility] Rolly Michaels Referred Provider Specialty Cardiology Referral Priority Routine Diagnosis 1 BP (high blood press ure) (I10) Referral Organization [facility] Referring Provider First Name Gabe Referring Provider Last Name Luís Referring Provider [facility] Referred Provider Man Burciaga Referred Provider Specialty Cardiology Referral Priority Routine Medications Medication SIG (Take, Route, Frequency, Duration) Notes Start Date End Date Status Trelegy Ellipta 100-62.5-25 MCG/ACT 1 puff Inhalation Once a day for 90 days Active Pantoprazole Sodium 40 MG TAKE 1 TABLET BY MOUTH EVERY DAY IN THE EVENING for 90 days Active Methocarbamol 500 MG 1 tablet Orally at bedtime for 30 days 03/28/2024 Active HYDROcodone-Acetaminop hen 5-325 MG 1 tablet as needed Orally every 6 hrs PRN Active Doxepin HCl 10 MG 2 capsule at bedtime Orally Once a day for 30 days PRN 06/03/2023 Active Lisinopril-hydroCHLORO thiazide 20-12.5 MG 1 tablet Orally Once a day TAKE WITH LISINOPRIL 20mg 05/10/2024 Active Lisinopril 20 MG 1 tablet Orally Once a day for 30 days 11/27/2024 Active Ventolin HFA 108 (90 Base) MCG/ACT 2 puff as needed Inhalation every 4 hrs 01/04/2025 Active Cytomel 25 MCG 1/2 tablet Orally Once a day for 30 days 07/19/2023 Active Colchicine 0.6 MG TAKE 1 TABLET NEEDED for 30 PRN Active Social History Tobacco Use: Social History Observation Description Date Details (start date - stop date) Former Smoker NA - NA Tobacco Use/Smoking Question Answer Notes Patient is a former smoker Alcohol Screen (Audit-C) Question Answer Notes Did you have a drink containing alcohol in the p ast year? No Points 0 Interpretation Negative AUDIT-C (Standard) Question Answer Notes Did you have a drink containing alcohol in the p ast year? No Points 0 Interpretation Negative Problems Problem Type SNOMED Code ICD Code Onset Dates Problem Status W/U Status Risk Notes Problem 315618169 Pneumonia, unspecified organism (J18.9) Active confirmed Problem 87819610 Diaphragmatic hernia without obstruction or gangrene (K44.9) Active confirmed Problem 216312896 Diverticulosis o f large intestine without perforation or abscess without bleeding (K57.30) Active confirmed Problem Primary osteoarthritis (626812918) Unilateral primary osteoarthritis, right knee (M17.11) Active confirmed Problem Acquired spondylolisthesis (219681832) Spondylolisthesis , cervical region (M43.12) Active confirmed Problem Epididymitis (69616344) Epididymitis (N45.1) Active confirmed Problem Fatigue (87182712) Fatigue (R53.83) Active conf irmed Problem Hypothyroid (98956525) Hypothyroid (E03.9) Active confirmed Problem Essential hypertension (61571717) Essential hypertension (I10) Active confirmed Problem Gout (18052918) Gout (M10.9) Active confirmed Problem Degeneration of cervical intervertebral disc (55194106) Degenerative disc disease, cervical (M50.30) Active confirmed Problem Lumbar radiculopathy (871272357) Lumbar radiculopathy (M54.16) Active confirmed Problem Arthralgia (72353816) Arthralgia (M25.50) Active confirmed Problem Bladder cancer (513446164) Bladder cancer (C67.9) Active confirmed Problem Trochanteric bursitis of left hip (636366727182707) Trochanteric bursitis of left hip (M70.62) Active confirmed Problem Cervical spondylosis without myelopathy (199965889) Spondylosis of cervical region without myelopathy or radiculopathy (M47.812) Active confirmed Problem Lumbosacral spondylosis without myelopathy (76518899) Spondylosis of lumbar region without myelopathy or radiculopathy (M47.816) Active confirmed Problem Acute sinusitis (45885771) Acute sinus infection (J01.90) Active confirmed Problem Overweight (100745069) Over weight (E66.3) Active confirmed Problem Liver cyst (88439483) Liver cyst (K76.89) Active confirmed Problem Osteoarthritis of shoulder (43037515) 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) Active confirmed Problem Chronic obstructive pulmonary disease (90141024) COPD, mild (J44.9) Active confirmed Problem Carcinoma of prostate (123250208) Carcinoma of prostate (C61) Active confirmed Problem Multiple fractures of ribs, right side, init for clos fx (S22.41XA) Active confirmed Problem Gastro-esophageal reflux disease (371228709) Gastro-esophageal reflux disease (K21.9) Active confirmed Problem 1236815181 Right knee pain, unspecified chronicity (M25.561) Active confirmed Problem Edema of hand (842873673) Edema of hand (R60.0) Active confirmed Problem Pain in thoracic spine (209641485) Back pain, thoracic (M54.6) Active confirmed Problem Shoulder impingement syndrome (455842633) Shoulder impingement syndrome (M75.40) Active confirmed Problem Essential hypertension (20115699) BP (high blood pressure) (I10) Active confirmed Problem Neurogenic claudication (147440096) Lumbar stenosis with neurogenic claudication (M48.062) Active confirmed Problem Myofascial pain (373105483) Myofascial pain (M79.18) Active confirmed Problem Cervical spondylosis without myelopathy (040680992) Spondylosis of cervical spine with radiculopathy (M47.22) Active confirmed Problem COVID-19 (101120633) COVID-19 (U07.1) Active co nfirmed Vital Signs Temperature 97.7 degrees Fahrenheit 01/04/2025 Blood pressure diastolic 70 mm Hg 01/22/2025 Height 70 in 01/22/2025 Blood pressure systolic 148 mm Hg 01/22/2025 Weight 187.4 lbs 01/22/2025 BMI 26.89 kg/m2 01/22/2025 Encounters Encounter Location Date Provider Diagnosis [facility] [address] [place] [address] 03/28/2024 Gabe Hoy Essential hypertensi on I10 [facility] [address] [place] [address] 11/06/2024 Gabe Hoy Acute bronchitis, unspecified organism J20.9 [facility] [address] [place] [address] 11/27/2024 Gabe Hoy BP (high blood pressure) I10 [facility] [address] [place] [address] 12/08/2024 Gabe Hoy Essential hypertensi on I10 [facility] [address] [place] [address] 01/04/2025 Gabe Hoy Acute non-recurrent sinusitis, unspecified location J01.90 and Nasal congestion R09.81 [facility] [address] [facility] [place] [address] 01/22/2025 Gabe Hoy Arthralgia M25.50 ; Lumbar radiculopathy M54.16 and Fatigue R53.83 [facility] [address] [facility] [place] [address] 01/24/2024 Gabe Riveray Hypothyroid E03.9 [facility] [address] [facility] [place] [address] 02/16/2024 Gabe torsten [facility] [address] [facility] [address] 02/24/2024 Gabe Staley [facility] [address] [facility] [place] [address] 03/14/2024 Gabe Staley [facility] [address] [facility] [place] [address] 04/19/2024 Padmini Murillo Essential hypertensi on I10 [facility] [address] [facility] [place] [address] 04/20/2024 Gabe torsten [facility] [address] [facility] [address] 05/04/2024 Gabe Staley [facility] [address] [facility] [place] [address] 05/10/2024 Gabe Staley [facility] [address] [facility] [address] 05/29/2024 Gabe torsten [facility] [address] [facility] [place] [address] 08/16/2024 Gabe Riveray Cough R05.9 [facility] [address] [facility] [place] [address] 09/13/2024 Gabe Staley [facility] [address] [place] [address] 11/02/2024 Gabe Staley [facility] [address] [place] [address] 11/21/2024 Gabe Staley [facility] [address] [place] [address] 11/27/2024 Gabe Staley BP (high blood pressure) I10 [facility] [address] [place] [address] 12/08/2024 Gabe Staley Assessments Encounter Date Diagnosis (ICD Code) Assessment Notes Treatment Notes Treatment Clinical Notes Section Notes 03/28/2024 Essential hypertension (ICD-10 - I10) 11/06/2024 Acute bronchitis, unspecified organism (ICD-10 - J20.9) Rest and drink more liquids, especially water. You may use a humidifier or vaporizer to help keep the drainage moist. Lbxr-qul-elkhgfk Nasal Saline may help the stuffy and runny nose. Use Ibuprofen and or Tylenol as needed for fever, chills, body aches or pain. Children 5 years old should not be given johp-say-zyupsre cough and cold medications such as guaifenesin and dextromethorphan. If you're over age 5, you may try gzfi-goe-xuhprdv cold medications such as guaifenesin and dextromethorphan, [...] if symptoms do not improve within 3-5 days. If you develop severe symptoms such as shortness of breath, repeated vomiting, coughing up blood, or chest pain you should go to the emergency room or call 911 11/27/2024 BP (high blood pressure) (ICD-10 - I10) 12/08/2024 Essential hypertension (ICD-10 - I10) 01/22/2025 Lumbar radiculopathy (ICD-10 - M54.16) 01/22/2025 Arthralgia (ICD-10 - M25.50) 01/24/2024 Hypothyroid (ICD-10 - E03.9) 04/19/2024 Essential hypertension (ICD-10 - I10) 08/16/2024 Cough (ICD-10 - R05.9) 11/27/2024 BP (high blood pressure) (ICD-10 - I10) 01/04/2025 Acute non-recurrent sinusitis, unspecified location (ICD-10 - J01.90) Rest and drink more liquids, especially water. You may use a humidifier or vaporizer to help keep the drainage moist. Jeib-cdc-scwzclv Nasal Saline may help the stuffy and runny nose. Use Ibuprofen and or Tylenol as needed for fever, chills, body aches or pain. Children 5 years old should not be given qmeo-xuz-yklgprh cough and cold medications such as guaifenesin and dextromethorphan. If you're over age 5, you may try dwur-gjo-fsvbvog cold medications such as guaifenesin and dextromethorphan, [...] symptoms do not improve within 3-5 days 01/22/2025 Fatigue (ICD-10 - R53.83) 01/04/2025 Nasal congestion (ICD-10 - R09.81) Plan Of Treatment Pending Test Test Name Order Date CMP (COMPLETE METABOLIC PANEL) 3 CULTURE, SPUTUM 08/16/2024 HEMOGLOBIN A1C (GLYCO) 01/22/2025 HEMOGLOBIN A1C (GLYCO) 06/03/2023 LIPID PANEL (CHOL/TRIG/HDL/LDL) 06/03/20 23 LIPID PANEL (CHOL/TRIG/HDL/LDL) 01/23/20 25 CBC WITH DIFF 06/03/2023 URIC ACID 01/22/2025 XR Chest PA and Lateral (Routine CXR) * 09/09/2023 MRI Knee RT w/o contrast * 11/24/2022 T3 FREE, T4 FREE and TSH 09/21/2023 RHEUMATOID PANEL 01/22/2025 US Doppler Abdomen 09/21/2022 POC CHEM8 09/21/2022 CT Chest Low Dose for Screening* 024 CBC W/AUTO DIFF 09/21/2022 AMYLASE 09/21/2022 LIPASE 09/21/2022 LIVER PROFILE 09/21/2022 SED RATE WESTERGREN 01/22/2025 SPUTUM GRAM STAIN 09/09/2023 TESTOSTERONE, TOTAL 01/22/2025 THYROID PANEL (T4/TSH/FREE T3) 4 THYROID PANEL (T4/TSH/FREE T3) 4 THYROID PANEL (T4/TSH/FREE T3) 4 THYROID PANEL (T4/TSH/FREE T3) 3 THYROID PANEL (T4/TSH/FREE T3) 5 XR SHOULDER RT 2V or > 08/05/2023 PSA, SCREENING 01/22/2025 CT CHEST LOW DOSE (LDCT) 11/06/2024 CMP (COMP MET ESTRELLA) w/eGFR CKD-EPI 2024 CBC WITH DIFF 01/22/2025 Insurance Providers Payer Name Payer Address Payer Phone Subscriber Number Group Number Insured Name Patient Relationship to Insured Coverage Start Date Coverage End Date [employer] [address] [place] [address] [id number] Mary Diaz Self - patient is the insured 3 Medications Administered Medication Instructions Date of Administration Dosage Notes Kenalog-40 03/12/2023 80 mg Kenalog-40 09/09/2023 80 mg 80 Synvisc One 11/05/2022 6 mL Triamcinolone 40 mg/ml 01/22/2025 120 mg Medical (General) History Medical History History ICD Code Right knee pain, unspecified chronicity M25.561 Multiple fractures of ribs, right side, init for clos fx S22.41XA Over weight E66.3 Back pain, thoracic M54.6 Carcinoma of prostate C61 Edema of hand R60.0 Shoulder impingement syndrome M75.40 COVID-19 U07.1 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 30 Surgical History Surgery Date(Month/Year) Neck Surgery 2018 Bilateral L4-5 transforamina l epidural steroid injection Dr Osman 03/27/2024 EGD/ Colonoscopy- Dr. Luis 03/10/23 Rt. knee scope 02/26/23 Bladder Surgery 2021 Hospitalization History Reason Date(Month/Year) Pneumonia 09/2022
--- OUTSIDE RECORDS SUMMARY | 2025-01-23 09:28 | XMS_ITS | Clinical Summary ---
Author Organization [facility] Healthcare Address [address] [place] [address] Care Team Providers Care Machinist Name Role Phone Deandre Staley MD Primary [...] mg by mouth at bedtime. 3 Active Fluticasone-Ume clidin-Vilant (Trelegy Ellipta) 100-62.5-25 MCG/ACT aerosol powder Inhale. Active levothyroxine (Synthroid, Levoxyl) 25 MCG tablet Take 12.5 mcg by mouth in the morning. Take before meals. Active liothyronine (Cytomel) 25 MCG tablet Take 25 mcg by mouth in the morning. 4 Active lisinopril-hydr oCHLOROthiazide 20-12.5 MG tablet Take 1 tablet by mouth in the morning. 5 07/17/19 26 Active rosuvastatin (Crestor) 20 MG tablet Take 20 mg by mouth in the morning. 5 07/17/19 26 Active sildenafil (Viagra) 100 MG tablet TAKE 1 TABLET BY MOUTH 1 HR PRIOR TO SEXUAL ACTIVITY NEEDED. DON T EXCEED 1 TABLET IN A 24 HR PERIOD 4 Active solifenacin (VESIcare) 10 MG tablet 5 Active celecoxib (CeleBREX) 200 MG capsuleIndicati ons:Acute hip pain, left Take 1 capsule (200 mg) by mouth Daily Take with food 30 capsule 1 5 12/27/19 Active Problems Problem Noted Date Diagnosed Date [...] Encounters Date Type Department Care Team Description 01/16/2025 9:45 AM EDT Office Visit [facility] [place] [address] Jr. Man Colmenares DO Trochanteric bursitis of left hip (Primary Dx); Acute hip pain, left 01/16/2025 Bamboo flowsheet [facility] [place] [place] [address] Jr. Man Colmenares, DO 01/16/2025 Travel 12/06/2024 8:45 AM EDT [facility] [address] [facility] [address] [place] [address] Jr. Man Colmenares, DO Trochanteric bursitis of left hip (Primary Dx); Acute hip pain, left 12/06/2024 Bamboo flowsheet [facility] [address] [facility] [address] [place] [address] Jr. Man Colmenares, DO 12/06/2024 Travel 11/10/2024 9:45 AM EDT Office Visit [facility] [address] [place] [phone] Jewel Bustillo PA Acute hip pain, left (Primary Dx); Trochanteric bursitis of left hip 11/10/2024 Bamboo flowsheet [facility] [address] [place] [address] Jewel Bustillo PA 11/10/2024 Travel 11/09/2024 12:00 PM EDT [facility]illary [facility] [address] [facility] [address] [facility] [place] [address] Acute hip pain, left 11/09/2024 Results [facility] [address] [facility] [address] [place] [address] Jewel Bustillo PA 11/09/2024 Travel 10/27/2024 9:45 AM EDT Office Visit [facility] [address] [place] [address], [place] [phone] Jewel Bustillo PA Acute hip pain, left (Primary Dx) 10/27/2024 Bamboo flowsheet [facility] [address] [place] [address] Jewel Bustillo PA 10/27/2024 Travel from Last 3 Months Immunizations Immunization [...] Description 02/27/2025 11:05 AM EDT [facility] [address] [place] [address] Cristal Mackey MD [address] [place] [address] 07/17/2025 10:00 AM EST [facility] [address] [place] [phone] Jr. Man Colmenares, DO [address] [place] [address] 09/11/2025 10:45 AM EDT Office Visit [facility] [address] [place] [address] Cristal Mackey MD [address] [place] [address] Health Maintenance Due Date Last Done Comments CT Colonography 1950 Colonoscopy 1950 Colorectal Cancer Screening 1950 FIT-DNA 1951 FIT 1951 FOBT 1950 Sigmoidoscopy 1950 Influenza Vaccine (#1) 2025 5, 03/23/2023, 03/27/2022, Additional history exists Pneumococcal Vaccine: 65+ Years Completed 8, 07/22/2016 Procedures Procedure Name Priority Date/Time Associated Diagnosis Comments CA ARTHROCENTESIS ASPIR&/INJ MAJOR JT/BURSA W/O US Routine 11/10/2024 10:17 AM EDT Trochanteric bursitis of left hip MR HIP LEFT WO IV CONTRAST Routine 11/09/2024 12:41 PM EDT Acute hip pain, left from Last 3 Months Results * CA ARTHROCENTESIS ASPIR&/INJ MAJOR JT/BURSA W/O US (11/10/2024 [...] Mild left trochanteric bursitis. ELECTRONICALLY SIGNED BY: MD Jolene Almanza 11/09/2024 1:06 PM EDT EXAMINATION/TECHNIQUE: MR HIP [...] [facility] IM[facility] MRI PROCEDURES Final Resu lt from Last 3 Months Insurance [employer] Care Teams Machinist Relationship Specialty Start Date End Date Deandre Staley MD [address] [place] [phone] PCP - General Family Medicine 01/10/25
--- OUTSIDE RECORDS SUMMARY | 2025-01-23 09:28 | XMS_ITS | Clinical Summary ---
Author Organization [facility] Address [address] [place] [address] Care Team Providers Care Internal Revenue Service Agent Name Role Phone Unavailable Primary Care Provider Unavailabl e Allergies Active Allergy Reactions Criticality Noted Date Comments Codeine Unknown 12/11/2024 Oxycodone-Acetaminophen Unknown 01/12/2023 Other Reaction(s): agitation, irritation pt states this does not work for pt, pt is not allergic to vicodin Tizanidine Hcl Unknown 01/12/2023 Other Reaction(s): Unknown Medications colchicine (Colcrys) 0.6 mg tablet Take 0.6 mg by mouth in the morning. 02/03/2023 Active lisinopril 20 mg tablet Take 20 mg by mouth in the morning. 02/19/2017 Active lisinopriL-hydro chlorothiazide 20-12.5 mg tablet Take 1 tablet by mouth in the morning. 07/17/2024 Active liothyronine (Cytomel) 25 mcg tablet Take 12.5 mcg by mouth in the morning. 10/04/2023 Active Trelegy Ellipta 100-62.5-25 mcg blister with device Inhale 1 puff in the morning. 02/03/2023 Active pantoprazole (ProtoNix) 40 mg EC tablet Take 40 mg by mouth before breakfast. 10/18/2022 Active diclofenac (Voltaren) 75 mg EC tablet Take 75 mg by mouth twice a day. 01/14/2017 Active tiZANidine (Zanaflex) 4 mg tablet Take 4 mg by mouth every 6 (six) hours if needed. 08/12/2024 Active sildenafil (Viagra) 100 mg tablet Take 100 mg by mouth if needed. 10/04/2023 Active HYDROcodone-acet aminophen ([place]) 5-325 mg tablet Take 1 tablet by mouth every 4 (four) hours if needed. 08/12/2023 Active rosuvastatin (Crestor) 20 mg tablet Take 20 mg by mouth in the morning. 07/17/2024 Active aspirin 81 mg chewable tabletIndication s:Carotid stenosis, asymptomatic, bilateral Chew 1 tablet (81 mg) every other day. 45 tablet 3 12/11/2024 Active Active Problems Problem Noted Date Diagnosed Date BMI 23.0-23.9, adult 12/11/2024 Change in bowel habits 12/11/2024 Chronic GERD 12/11/2024 GERD (gastroesophageal reflux disease) Chronic obstructive pulmonary disease 12/11/2024 Ecchymosis 12/11/2024 Overview (12/11/2024): left leg from españa to ankle- box with snowblower in it slipped off a cart and banged his leg. Foot pink and dry with immediate capillary refill, 4t pedal and poterior tibial pulses. History of colonic polyps 12/11/2024 Idiopathic gout 12/11/2024 Overview (12/11/2024): lots of inflammation per pt sometimes has to get steroids Iron deficiency anemia 12/11/2024 Chest pressure 07/17/2024 Bilateral carotid artery disease 07/17/2024 BMI 26.0-26.9,adult 05/08/2024 Former smoker 05/08/2024 History of fractured rib 05/08/2024 Medication course changed 05/08/2024 Shortness of breath 05/08/2024 Unequal blood pressure in upper extremities 04/21 Bilateral tinnitus 01/12/2023 Bladder cancer 01/12/2023 Cervical spondylosis with radiculopathy 01/13/20 Paresthesia of skin 01/12/2023 Chronic pain 01/12/2023 Erectile dysfunction after radical prostatectomy 01/12/2023 Glenohumeral arthritis, left 01/12/2023 History of kidney stones 01/12/2023 History of prostate cancer 01/12/2023 Sensorineural hearing loss, bilateral 01/12/2023 Shoulder impingement syndrome 01/12/2023 Spondylolisthesis, cervical region 01/12/2023 Umbilical hernia 01/12/2023 Essential hypertension 04/20/2012 Osteoarthritis 04/20/2012 Encounters Date Type Department Care Team Description 12/11/2024 9:00 AM EDT Office Visit [facility] [address] [place] [address] Man Burciaga MD Primary hypertension (Primary Dx); Carotid stenosis, asymptomatic, bilateral; Shortness of breath from Last 3 Months Family History Medical History Relation Name Comments Dementia Father Cerebral aneurysm Mother Hypertension Sister Relation Name Status Comments Brother Father Mother Sister Alive Social History Tobacco Use Types Packs/Day Years Used Date Smoking Tobacco: Former Cigarettes Passive Smoke Exposure: Past Smokeless Tobacco: Never Tobacco Cessation:Counseling Given: Not Answered Alcohol Use Standard Drinks/Week Comments Not Asked 0 (1 standard drink = 0.6 oz pur e alcohol) occasional Sex and Gender Information Value Date Recorded Sex Assigned at Not on file Legal Sex Male 9:30 AM EDT Gender Identity Not on file Sexual Orientation Not on file Last Filed Vital Signs Vital Sign Reading Time Taken Comments Blood Pressure 142/78 12/11/2024 9:52 AM EDT Pulse 91 12/11/2024 9:05 AM EDT Temperature - - Respiratory Rate - - Oxygen Saturation 99% 12/11/2024 9:05 AM EDT Inhaled Oxygen Concentration - - Weight 83.5 kg (184 lb) 12/11/2024 9:05 AM EDT Height 182.9 cm (6') 12/11/2024 9:05 AM EDT Body Mass Index 24.95 12/11/2024 9:05 AM EDT Plan of Treatment Health Maintenance Due Date Last Done Comments CT Colonography 1950 Colonoscopy 1950 Colorectal Cancer Screening 1950 FIT-DNA 1950 FIT 1950 FOBT 1950 Medicare Annual Wellness (AWV) 1950 Sigmoidoscopy 1950 Depression Screening 1963 Fall Risk Screening 02/03/2016 COVID-19 Vaccine ( season) 2024 08/14/2024, 04/16/2022, 04/16/2022, Additional history exists Influenza Vaccine (#1) 2025 , 03/23/2023, 03/27/2022, Additional history exists Adult Tetanus 09/26/2028 09/26/2018, 02/2014, 03/10/2000 Pneumococcal Vaccine: 50+ Years Completed 10/11/2017, 07/22/2016 Zoster Vaccines Completed 07/13/2023, 03/23/2023 HIB Vaccines Aged Out No longer eligi ble based on patient's age to complete this topic HPV Vaccines Aged Out No longer eligi ble based on patient's age to complete this topic IPV Vaccines Aged Out No longer eligi ble based on patient's age to complete this topic Meningococcal B Vaccine Aged Out No l onger eligible based on patient's age to complete this topic Meningococcal Vaccine Aged Out No trav shukri eligible based on patient's age to complete this topic Rotavirus Vaccines Aged Out No longer eligible based on patient's age to complete this topic Insurance [facility] MEDICARE
--- OUTSIDE RECORDS SUMMARY | 2025-01-23 09:28 | XMS_ITS | Encounter Summary ---
Author Organization [facility] Address [address] [place] [address] Care Team Providers Care Hand I Cutter Name Role Phone Deandre Staley MD Primary Care Provider [phone] Encounter Details Date Type Department Care Team (Late st Contact Info) Description 01/16/2025 Bamboo flowsheet [facility] [address] [place] [address] Jr. Man Colmenares, DO [address] [address] Social History Tobacco Use Types Packs/Day Years [...] Office Visit [facility] [address] [facility] [address] [place] [address] Cristal Mackey MD [address] [facility] [address] [place] [address] 07/17/2025 10:00 AM EST Office Visit [facility] [address] [place] [address] Jr. Man Colmenares, DO [address] [facility] [address] [place] [address] 09/11/2025 10:45 AM EDT Office Visit [facility] [address] [place] [address] Cristal Mackey MD [address] [facility] [address] [place] [address] documented as of this encounter Visit Diagnoses Not on filedocumented in this encounter Care Teams Hand I Cutter Relationship Specialty Start Date End Date Deandre Staley MD [address] [facility] [place] [address] PCP - General Family Medicine 01/10/25 documented as of this encounter
--- OUTSIDE RECORDS SUMMARY | 2025-01-23 09:28 | XMS_ITS | Encounter Summary ---
Author Organization [facility] Address [address] [place] [address] Care Team Providers Care Sawdust Drier Name Role Phone Deandre Staley MD Primary Care Provider [phone] Encounter Details Date Type Department Care Team (Latest Contact Info) Description 01/16/2025 Travel Social History Tobacco Use Types Packs/Day [...] Dermatology [address] [place] [address] Cristal Mackey MD [address] [place] [address] 07/17/2025 10:00 AM EST Office Visit [facility] [place] [place] [address] Jr. Man Colmenares, DO [address] [facility] [address] [place] [address] 09/11/2025 10:45 AM EDT Office Visit [facility] [address] [place] [address] Cristal Mackey MD [address] [facility] [address] [place] [address] documented as of this encounter Visit Diagnoses Not on filedocumented in this encounter Care Teams Sawdust Drier Relationship Specialty Start Date End Date Deandre Staley MD [address] [place] [phone] PCP - General Family Medicine 01/10/25 documented as of this encounter
--- OUTSIDE RECORDS SUMMARY | 2025-01-23 09:28 | XMS_ITS | Clinical Summary ---
Author Organization [facility] Address [id number] [address] [place] [address] Care Team Providers Care Chemical Treatment Plant Technician Name Role Phone Derick Chew DO Primary Care Provider [phone] Allergies Active Allergy Reactions Criticality Noted Date [...] Date Last Done Comments Depression Screening 1962 Tobacco Screening 1962 Zoster (Shingles) Vaccine (1 of 2) 2001 Abdominal Aortic Aneurysm (A AA) Screen 02/03/2016 Fall Risk Screening 02/03/2016 Colonoscopy 06/06/2017 06/06/2014 Adult BMI Screening 11/03/2023 11/02/2022 COVID-19 Vaccine (5 - 2023-2 5 season) 2024 04/16/2022, 05/06/2021, [...] nal Result [facility] EXTERNAL NON-INTERFACED REF LAB [id number] [facility] [place] [address] from Last 3 Months or Most Recently Relevant to Health Maintenance Insurance [facility] MEDICARE Care Teams Chemical Treatment Plant Technician Relationship Specialty Start Date End Date Derick Chew DO [address] [place] [address] PCP - General 03/22/17
[2025-01-23 09:52] LABS: Hematocrit 38.8 % (42.0-54.0); Hemoglobin 12.7 g/dL (14.0-18.0); Immature Granulocytes Abs Auto 0.02 10^3/uL (0.00-0.03); Immature Granulocytes Pct Auto 0.3 % (0.0-0.5); Lymphocytes Absolute Auto 1.1 10^3/uL (1.2-3.8); Mean Corpuscular HGB Conc 32.7 g/dL (29.9-35.2); Mean Corpuscular Hemoglobin 29.9 pg (25.9-34.0); Mean Corpuscular Volume 91.3 fL (80.0-94.0); Platelet Count 308 10^3/uL (150-450); Red Blood Count 4.25 10^6/uL (4.70-6.10); White Blood Count 7.6 10^3/uL (4.0-11.0)
[2025-01-23 10:46] LABS: Alanine Aminotransferase 31 U/L (16-63); Albumin Globulin Ratio 1.3; Albumin Level 4.0 g/dL (3.4-5.0); Alkaline Phosphatase 59 U/L (46-116); Anion Gap 14.3; Aspartate Amino Transferase 13 U/L (15-37); Blood Urea Nitrogen 20.0 mg/dL (7.0-18.0); Calcium 9.5 mg/dL (8.5-10.1); Carbon Dioxide 26.8 mmol/L (21.0-32.0); Chloride 104 mmol/L (98-107); Cholesterol 152 mg/dL (<=200); Estimated GFR (African America >60 (>=60 mL/min/1.73m^2); Estimated GFR (Non-African Ame >60 (>=60 mL/min/1.73m^2); Free T3 2.55 pg/mL (2.18-3.98); Globulin 3.2 g/dL; Glucose 122 mg/dL (74-106); HDL Cholesterol 54 mg/dL (40-60); Potassium 4.1 mmol/L (3.5-5.1); Sodium 141 mmol/L (136-145); Thyroid Stimulating Hormone 0.295 uIU/mL (0.358-3.740); Total Protein 7.2 g/dL (6.4-8.2); Triglycerides 116 mg/dL (<=150); Uric Acid 7.9 mg/dL (3.5-7.2); VLDL CHOLESTEROL 23.2 mg/dL
[2025-01-25 15:08] LABS: Antinuclear Antibodies, IFA Negative (.)
== END 2025-01-23 09:20 | disposition home or self-care (01) ==
PROVIDERS: PCP Family Medicine; Visit Provider Family Medicine
DX: M54.16 Radiculopathy, lumbar region (principal); R53.83 Other fatigue; E78.5 Hyperlipidemia, unspecified; R73.09 Other abnormal glucose; E03.9 Hypothyroidism, unspecified; I10 Essential (primary) hypertension; Z12.5 Encounter for screening for malignant neoplasm of prostate; M25.50 Pain in unspecified joint
CPT/HCPCS: 36415; 80053; 80061; 83036; 84403; 84436; 84443; 84481; 84550; 85025; 85652; 86038; 86060; 86140; 86431; G0103

== ENCOUNTER 2025-01-25 11:38 | Outpatient (OUT) | payer MEDICARE, SELFPAY ==
--- NOTE | 2025-01-25 12:59 | PM.CN ---
Consult Note: HPI Data of Consult Patient: known to practice within the last 3 years Requesting Physician: Erin Shelton NP Primary Care Provider: Deandre Staley MD Consult Narrative Reason for consult: left hip and leg pain Narrative: Ryder Durant a 74 year old male with chronic left hip and left leg pain presents for evaluation. 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 minimal relief with interventional therapy through orthopedics per pt. continues to endorse left hip and left leg pain. pt discouraged as this pain is persisting. no recent falls of injury. prior lumbar MRI consistent with multilevel stenosis and facet arthropathy. pain today 5/10 sharp, increasing to 10/10 with standing, walking, sleeping, soical life, lifting, pulling, pushing. Pain mildly improved with heat and sitting. per pt he is not a surgical candidate for his left hip OA. cc:: CC: Erin Shelton NP Review of Systems ROS Musculoskeletal Reports: back pain, extremity pain and joint pain PFSH PFS Medical History Bladder tumor ?D49.4 - Neoplasm of unspecified behavior of bladder (ICD-10) Carotid bruit ?R09.89 - Other specified symptoms and signs involving the circulatory and respiratory systems (ICD-10) Hip pain ?M25.559 - Pain in unspecified hip (ICD-10) High cholesterol ?E78.00 - Pure hypercholesterolemia, unspecified (ICD-10) Hypothyroidism ?E03.9 - Hypothyroidism, unspecified (ICD-10) COPD (chronic obstructive pulmonary disease) ?J44.9 - Chronic obstructive pulmonary disease, unspecified (ICD-10) Arthritis ?M19.90 - Unspecified osteoarthritis, unspecified site (ICD-10) Anemia ?D64.9 - Anemia, unspecified (ICD-10) Bladder cancer ?C67.9 - Malignant neoplasm of bladder, unspecified (ICD-10) 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 - Other specified disorders of bladder (ICD-10) Neck pain ?M54.2 - Cervicalgia (ICD-10) Low back pain ?M54.50 - Low back pain, unspecified (ICD-10) Osteoarthritis ?M19.90 - Unspecified osteoarthritis, unspecified site (ICD-10) Acid reflux ?K21.9 - Gastro-esophageal reflux disease without esophagitis (ICD-10) Hearing deficit ?H91.90 - Unspecified hearing loss, unspecified ear (ICD-10) Prostate cancer ?C61 - Malignant neoplasm of prostate (ICD-10) Former smoker ?Z87.891 - Personal history of nicotine dependence (ICD-10) Hypertension ?I10 - Essential (primary) hypertension (ICD-10) Surgical History H/O cystoscopy ?Z98.890 - Other specified postprocedural states (ICD-10) S/P epidural steroid injection ?Z92.241 - Personal history of systemic steroid therapy (ICD-10) H/O transurethral resection of bladder tumor (TURBT) ?Z98.890 - Other specified postprocedural states (ICD-10) ?Z86.03 - Personal history of neoplasm of uncertain behavior (ICD-10) History of colonoscopy ?Z98.890 - Other specified postprocedural states (ICD-10) History of arthroscopy of knee ?Z98.890 - Other specified postprocedural states (ICD-10) History of foot surgery ?Z98.890 - Other specified postprocedural states (ICD-10) History of appendectomy ?Z90.49 - Acquired absence of other specified parts of digestive tract (ICD-10) History of hernia repair ?Z98.890 - Other specified postprocedural states (ICD-10) ?Z87.19 - Personal history of other diseases of the digestive system (ICD-10) S/P cystoscopy ?Z98.890 - Other specified postprocedural states (ICD-10) H/O transurethral resection of bladder tumor (TURBT) (01/14/23) ?Z98.890 - Other specified postprocedural states (ICD-10) ?Z86.03 - Personal history of neoplasm of uncertain behavior (ICD-10) H/O transurethral resection of bladder tumor (TURBT) ?Z98.890 - Other specified postprocedural states (ICD-10) ?Z86.03 - Personal history of neoplasm of uncertain behavior (ICD-10) S/P cervical spinal fusion ?Z98.1 - Arthrodesis status (ICD-10) H/O prostatectomy ?Z90.79 - Acquired absence of other genital organ(s) (ICD-10) History of ankle surgery ?Z98.890 - Other specified postprocedural states (ICD-10) H/O shoulder surgery ?Z98.890 - Other specified postprocedural states (ICD-10) Family History Other Depression Family history of diabetes mellitus Family history of hypertension Social History Within the past year, how often did you have a drink containing alcohol: 2-4 times a month Smoking status: Former smoker Non-prescribed substance use: denies use Previous occupational history: retired Highest level of school completed/degree received: Associate degree: occupational, technical, vocational program Meds Home Medications and Allergies Home Medications ?Medication ?Instructions ?Recorded ?Confirmed ?Type diclofenac sodium 75 mg 75 mg PO BID 11/20/22 08/07/24 History tablet,delayed release fluticasone fur. 100 mcg-umeclid 1 inh inhalation DAILY 11/20/22 08/07/24 History 62.5 mcg-vilant 25 mcg inhalat.powder (Trelegy Ellipta) pantoprazole 40 mg tablet,delayed 40 mg PO DAILY 11/20/22 08/07/24 History release methocarbamol 500 mg tablet 500 mg PO QDAY PRN muscle spasm 04/21/23 08/07/24 History metoprolol tartrate 50 mg tablet 50 mg PO Q12H 04/10/24 08/07/24 History liothyronine 25 mcg tablet 25 mcg PO DAILY 06/27/24 08/07/24 History lisinopril 20 mg tablet 20 mg PO DAILY 06/27/24 08/07/24 History lisinopril 20 1 tab PO DAILY 06/27/24 08/07/24 History mg-hydrochlorothiazide 12.5 mg tablet rosuvastatin 20 mg tablet 20 mg PO DAILY 06/27/24 08/07/24 History tizanidine 4 mg capsule 4 mg PO BID PRN muscle spasticity 06/27/24 08/07/24 History solifenacin 10 mg tablet (Vesicare) 10 mg PO DAILY #7 tabs 07/06/24 08/07/24 Rx hydrocodone 5 mg-acetaminophen 325 1 tab PO DAILY PRN pain #30 tabs 09/27/24 Rx mg tablet Allergies Allergy/AdvReac Type Severity Reaction Status Date / Time codeine Allergy Unknown Hives Verified 08/07/24 09:52 oxycodone (From Percocet) AdvReac Agitated Verified 08/07/24 09:52 Exam Constitutional Documenting provider has reviewed patient's vital signs: yes Common normals: no apparent distress, oriented x3, healthy appearing, alert and well nourished General appearance: cooperative HENMT Common normals: normocephalic, hearing grossly normal bilaterally and moist oral mucous membranes Head and scalp: normocephalic Eye Common normals: PERRL Pupil: PERRL Neck & C-Spine Common normals: full ROM General: normal visual inspection Chest Common normals: inspection of chest normal Respiratory Common normals: normal respiratory effort, no retractions and no use of accessory muscles Back & Pelvis Lumbar spine/lower back: pain with ROM and straight leg raise positive left; no lumbar spinal tenderness Sacroiliac joints: SI joint(s) abnormal Other: decreased sensation left L3,4,5 strength 4/5 in LLE and 5/5 in RLE left sij mildly positive ai(patricks), gaenslens, thigh thrust, compression test Extremity Left lower extremity: hip joint Other: no pain with internal and external rotation mild tenderness over left greater trochanteric bursa Neuro Common normals: oriented x3 Sensorium/orientation: alert Psych Common normals: mental status grossly normal, thought process normal, cooperative, affect normal, speech normal and activity/motor behavior normal Speech: normal speech Thought process: normal thought process Results Additional Findings Additional findings: If on a controlled substance or opioids, I have checked an [place]AR[place] report on this patient and there are no aberrancies noted in the prescribing history.??If on a controlled substance or opioid a drug screen was completed and reviewed within the last year, and if there has not been a drug screen completed we ordered one today to monitor higher risk, state monitored pain medication use. As part of providing excellent, safe, comprehensive care, the following was completed at our patient's visit: 1. A medication reconciliation and review to ensure accurate knowledge of current/active medications, including asking our patients to inform us about any skeq-upc-fqibzbo medications or herbal remedies/nutritional supplements/alternative remedies. 2. A review to specifically ensure our patients have had annual screening for screening for depression, screening for tobacco use, and screening for unhealthy alcohol use. For concerning screenings had a discussion with the patient, provided patient education, and recommended follow-up with primary care provider when appropriate. If patient noted with a risk of falling, they received education on strength, gait, and balance training to prevent future risk of falling. Portions of this note may have been carried over from the previous visit and updated as appropriate. Please note this office utilizes paper charting in addition to the electronic medical record. A list of current medications, vitals, and PMH is available there as the clinical staff outside of myself do not have access to [facility] charting during the clinic day operations. As part of providing quality comprehensive care the current medications, vitals, and PMH were reviewed in the paper chart. Assessment and Plan Assessment and Plan (1) Lumbar stenosis with neurogenic claudication: Assessment and Plan: The patient has had over 3 months of moderate to severe left low back and left leg pain with functional impairment and inadequate response to conservative care including NSAIDS (unless there are contraindication such as concurrent blood thinners), multiple oral or topical pain medications, and home exercise program/physical therapy.? Patient has completed >6 weeks of guided home exercise program and/or formal physical therapy program without relief of their symptoms.? The Oswestry Disability Index was completed, and the patient scored a 28%.? (2) Sacroiliitis: (3) Left hip pain: Plan proceed with left L3,4 L4,5 tfesi under fluoroscopy as previously recommended by Dr Landa may consider spinal cord stim trial/implant if pt nonsurgical, defer additional ns consult at this time continue current medications f/u after injction, consider left SIJ injection
== END 2025-01-25 11:39 | disposition home or self-care (01) ==
LOC: PM 11:38
PROVIDERS: PCP Family Medicine; Visit Provider Nurse Practitioner
DX: M48.062 Spinal stenosis, lumbar region with neurogenic claudication (principal); M46.1 Sacroiliitis, not elsewhere classified; M25.552 Pain in left hip
CPT/HCPCS: G0463

== ENCOUNTER 2025-02-05 12:23 | Day surgery (SDC) | payer MEDICARE, SELFPAY ==
--- OUTSIDE RECORDS SUMMARY | 2025-01-22 07:00 | XMS_ITS ---
Author Organization [facility] [place] Address [address] [place] [address] Care Team Providers Care Autocad Technician Name Role Phone Gabe Staley Primary Care Provider [phone] Allergies Allergen (clinical drug ingredient) Drug/Non Drug [...] Problem Status W/U Status Risk Notes Problem Lumbar radiculopathy (927276008) Lumbar radiculopathy (M54.16) Active confirmed Problem Fatigue (72012361) Fatigue (R53.83) Active confirmed Problem Arthralgia (05520560) Arthralgia (M25.50) Active confirmed Vital Signs Blood pressure systolic 148 mm Hg 01/23/20 25 Blood pressure diastolic 70 mm Hg 025 Height 70 in 01/22/2025 Weight 187.4 lbs 01/22/2025 BMI 26.89 kg/m2 01/22/2025 Encounters Encounter Location Date Provider Diagnosis [facility] [address] [place] [address] 01/22/2025 Gabe Hoy Arthralgia M25.50 ; Lumbar [...] Ryder DIAZ MDOB: [birth year] (74 yo M)Acc No.[id number]:01/22/2025 Progress Note Patient: Ryder ANAND Provider: Ricarda Staley ([facility])MD :1950 A ge:74 Y S ex:Male Date:01/22/2025 Address:[address] [place], [place] [id number] Check In:11:03 AM ESTCheck O ut:11:49 AM EST Subjective: * Chief Complaints: * P resents to office alone for c/o body to entire body x1 month * HPI: G eneral: feels like whole [...] enies. S wollen joints d enies. * Active Problem List E66.3 Over weight Modified On:09/18/2022U Status:confirmed M25.561 Right knee pain, uns pecified chronicity Modified On:02/01/2023U Status:confirmed R60.0 Edema of hand Modified On:09/18/2022U Status:confirmed M54.6 Back pain, thoracic Modified On:09/18/2022U Status:confirmed M75.40 Shoulder impingement syndrome Modified On:09/18/2022U Status:confirmed S22.41XA Multiple fractures o f ribs, right side, init for clos fx Modified On:09/18/2022U Status:confirmed U07.1 COVID-19 Modified On:09/18/2022U Status:confirmed C61 Carcinoma of prostat e Modified On:06/03/2023U Status:confirmed 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 Modified On:09/18/2022U Status:confirmed M43.12 Spondylolisthesis, c ervical region Modified On:09/18/2022U Status:confirmed J44.9 COPD, mild Modified On:09/09/2023U Status:confirmed M10.9 Gout Modified On:03/12/2023U Status:confirmed K21.9 Gastro-esophageal re flux disease Modified On:09/21/2022U Status:confirmed I10 Essential hypertensi on Modified On:06/03/2023 [...] cyst Modified On:06/03/2023U Status:confirmed E03.9 Hypothyroid Modified On:09/21/2023U Status:confirmed J01.90 Acute sinus infectio n Modified On:08/23/2023U Status:confirmed N45.1 Epididymitis Modified On:11/25/2023U Status:confirmed M48.062 Lumbar stenosis with neurogenic claudication Modified On:03/06/2024U Status:confirmed M19.019 Osteoarthritis of oulder Modified On:03/06/2024U Status:confirmed M79.18 Myofascial pain Modified On:03/06/2024U Status:confirmed M47.812 Spondylosis of cervi aura region without myelopathy or radiculopathy Modified On:03/30/2024U Status:confirmed M47.816 Spondylosis of lumba r region without myelopathy or radiculopathy Modified On:03/30/2024U Status:confirmed C67.9 Bladder cancer Modified On:08/18/2024U Status:confirmed M70.62 Trochanteric bursiti s of left hip Modified On:12/11/2024W/U Status:confirmed M54.16 Lumbar radiculopathy Modified On:01/22/2025/U Status:confirmed R53.83 Fatigue Modified On:01/22/2025/U Status:confirmed M25.50 Arthralgia Modified On:01/22/2025/U Status:confirmed * Medical History: * Surgical History: [...] MOUTH EVERY DAY IN THE EVENING Trelegy Ellipta(Lapauykgmqi-Qipkcoqth-Hxwdzh) 100-62.5-25 MCG/ACT Aerosol Powder Breath Activated 1 puff Inhalation Once a day Ventolin HFA(Albuterol Sulfate HFA) 108 (90 Base) MCG/ACT Aerosol Solution 2 puff as needed Inhalation every 4 hrs Taking Colchicine 0.6 MG Tablet TAKE 1 [...] EVERY DAY IN THE EVENING Taking Trelegy Ellipta(Abwmmcbvjzg-Ucmnltujp-Knkmpz) 100-62.5-25 MCG/ACT Aerosol Powder Breath Activated 1 puff Inhalation Once a day Taking Ventolin HFA(Albuterol Sulfate HFA) 108 (90 Base) MCG/ACT Aerosol Solution 2 puff as needed Inhalation every 4 hrs DiscontinuedAmoxicillin-Pot Clavulanate 875-125 MG Tablet 1 tablet Orally every 12 hrs Diclofenac Sodium 75 MG Tablet Delayed Release 1 tablet as needed Orally Twice a day , Notes to Pharmacist: PRNMedication List reviewed and reconciled with the patientDiscontinued Amoxicillin-Pot Clavulanate 875-125 MG Tablet 1 tablet Orally every 12 hrs Discontinued Diclofenac Sodium 75 MG Tablet Delayed Release 1 tablet as needed Orally Twice a day , Notes to Pharmacist: PRNMedication List reviewed and reconciled with the patient * Allergies: C odeine: does not workno[Allergies Verified] Objective: * Vitals: W t:187.4lbs, Ht: 70 [...] : 120 mg (Route: Intramuscular) given by Makenzie Crain , MR on right deltoid (Lumbar radiculopathy) * Procedure Codes: 9 6372 THERAP.INJ. OF MED. INTRAMUSCULAR OR [id number] TMC ACET,PER 10MG., Units: 12.00 * Preventive Medicine: Screenings/Counseling: B [place] ACTION PLAN Above Normal BMI Follow-up D ietary management education, guidance, and counseling See treatment section of progress note for complete details of management plan. F ALL RISK SCREENING Fall Risk Assessment: N o falls in the past year * * Sign off status: Completed Visit Status: C HK (Check Out) true * Provider: Ricarda Stlaey ([facility])MD Date: 0 01/22/2025 Generated for Ivettei ng/Mario/eTransmitting on: 0 02/05/2025 12:28 PM EDT History and Physical Notes * HPI [...]
--- OUTSIDE RECORDS SUMMARY | 2025-01-23 10:42 | XMS_ITS ---
Author Organization [facility] [place] Address [address] [place] [address] Care Team Providers Care Trenching Machine Operator Name Role Phone Gabe Staley Primary Care Provider REASON FOR VISIT Review Labs Medications Medication SIG (Take, Route, Frequency, Duration) Notes Start Date End Date Status Ferrous Sulfate 325 (65 Fe) MG 1 tablet Orally twice daily for 30 days 01/23/2025 Active Encounters Encounter Location Date Provider Diagnosis [address] [address] 01/23/2025 Gabe Staley Plan Of Treatment Medication Medication Name Sig Start Date Stop Date Notes Ferrous Sulfate 325 (65 Fe) MG 1 tablet Orally twice daily for 30 days 01/23/2025 Progress Notes * Ryder FOUNTAIN MDOB: [birth year] (74 yo M)Acc No.[id number]:01/23/2025 Patient: Ryder ANAND :1950 A ge:74 Y S ex:Male Address:[address] [place] [address], [phone] * Refills Start Ferrous Sulfate Tablet Delayed Release, 325 (65 Fe) MG, Orally, 60 Tablet, 1 tablet, twice daily, 30 days, Refills=11 * true * Date: Generated for Printi ng/Faxing/eTransmitting on: 0 02/05/2025 12:29 PM EDT
--- OUTSIDE RECORDS SUMMARY | 2025-01-25 17:57 | XMS_ITS ---
Author Organization [facility] [place] Address [address] [place] [address] Care Team Providers Care Investigative Research Specialist Name Role Phone Gabe Staley Primary Care Provider REASON FOR VISIT review labs Encounters Encounter Location Date Provider Diagnosis [facility] [address] [place] [address] 01/25/2025 Gabe Staley Plan Of Treatment No Information Progress Notes * Ryder FOUNTAIN MDOB: [birth year] (74 yo M)Acc No.[id number]:01/25/2025 Patient: Ryder ANAND :1950 A ge:74 Y S ex:Male Address:[address] [place] [address], [id number] * true * Date: Generated for Printi jacquie/Fagiuseppeg/eTransmitting on: 0 02/05/2025 12:28 PM EDT
--- OUTSIDE RECORDS SUMMARY | 2025-02-05 12:29 | XMS_ITS | Encounter Summary ---
Author Organization [facility] Address [address] [place] [address] Care Team Providers Care Coverstitch Binder Name Role Phone Deandre Staley MD Primary Care Provider [phone] Deandre Staley MD Primary Care Provider [phone] Encounter Details Date Type Department Care Team (Late st Contact Info) Description 09/28/2024 Orders Only [facility] [address] [facility] [address] [place] [address] Unallocated, [facility], [address] [place] [address] Social History Tobacco Use Types Packs/Day Years [...] Dermatology [address] [place] [address] Cristal Mackey MD [address] [place] [address] 07/17/2025 10:00 AM EST Office Visit [facility] [address] [place] [address] Jr. Man Colmenares, DO [address] [facility] [address] [place] [address] 09/11/2025 10:45 AM EDT Office Visit [facility] [address] [place] [address] Cristal Mackey MD [address] [place] [address] documented as of this encounter Procedures Procedure [...] on filedocumented in this encounter Care Teams Coverstitch Binder Relationship Specialty Start Date End Date Deandre Staley MD PCP - General Family Medicine 01/07/23 01/09/25 Deandre Staley MD [address] [place] [address] PCP - General Family Medicine 01/10/25 documented as of this encounter
--- OUTSIDE RECORDS SUMMARY | 2025-02-05 12:29 | XMS_ITS | Clinical Summary ---
Author Organization [facility] Address [address] [place] [address] Phone Care Team Providers Care [facility] Shift Lead Name Role Phone Deandre Staley MD Primary Care Provider [phone] Allergies Active Allergy Reactions Criticality Noted Date Comments Codeine Agitation 05/08/2024 Medications diclofenac (Voltaren) 75 mg EC tablet Take 1 tablet (75 mg) by mouth 2 times a day. 3 Active Trelegy Ellipta 100-62.5-25 mcg blister with device Inhale 1 puff early in the morning.. Active HYDROcodone-acetami nophen ([place]) 5-325 mg tablet Take 1 tablet by [...] Type Department Care Team Description 01/04/2025 Telephone [facility] [address] [address] Sujatha Goddard MA from Last [...] to complete this topic Insurance # [address] [place] [address] [employer] # [address] [place] [id number] [employer] Care Teams [facility] Shift Lead Relationship Specialty Start Date End Date Deandre Staley MD [address] [place] [address] PCP - General Family Medicine 05/08/24
--- OUTSIDE RECORDS SUMMARY | 2025-02-05 12:29 | XMS_ITS | Clinical Summary ---
Author Organization [facility] Address [address] [place] [address] Care Team Providers Care Locomotive Firer Name Role Phone Deandre Staley MD Primary [...] Take 40 mg by mouth at bedtime. 10/18/2022 Active Fluticasone-Ume clidin-Vilant (Trelegy Ellipta) 100-62.5-25 MCG/ACT aerosol powder Inhale. Active levothyroxine (Synthroid, Levoxyl) 25 MCG tablet Take 12.5 mcg by mouth in the morning. Take before meals. Active liothyronine (Cytomel) 25 MCG tablet Take 25 mcg by mouth in the morning. 10/04/2023 Active lisinopril-hydr oCHLOROthiazide 20-12.5 MG tablet Take 1 tablet by mouth in the morning. 07/17/2024 07/17/19 26 Active rosuvastatin (Crestor) 20 MG tablet Take 20 mg by mouth in the morning. 07/17/2024 07/17/19 26 Active sildenafil (Viagra) 100 MG tablet TAKE 1 TABLET BY MOUTH 1 HR PRIOR TO SEXUAL ACTIVITY NEEDED. DON T EXCEED 1 TABLET IN A 24 HR PERIOD 10/14/2023 Active solifenacin (VESIcare) 10 MG tablet 07/06/2024 Active Active Problems Problem Noted Date Diagnosed [...] Description 01/16/2025 9:45 AM EDT Office Visit [facility] [address] [address] Jr. Man Colmenares, Trochanteric bursitis of left hip (Primary Dx); Acute hip pain, left 01/16/2025 Bamboo flowsheet [facility] [address] [address] Jr. Man Colmenares, 01/16/2025 Travel 12/06/2024 8:45 AM EDT Office Visit [facility] [address] [place] [address] Jr. Man Colmenares, DO Trochanteric bursitis of left hip (Primary Dx); Acute hip pain, left 12/06/2024 Bamboo flowsheet [facility] [address] [place] [address] Jr. Man Colmenares, DO 12/06/2024 Travel 11/10/2024 9:45 AM EDT Office Visit [facility] [address] [facility] [place] [address] Jewel Bustillo PA Acute hip pain, left (Primary Dx); Trochanteric bursitis of left hip 11/10/2024 Bamboo flowsheet [facility] [address] [place] [address] Jewel Bustillo PA 11/10/2024 Travel 11/09/2024 12:00 PM EDT Ancillary Procedure [facility] [address] [facility] [address] [place] [address] Acute hip pain, left 11/09/2024 Results Follow-Up [facility] [address] [facility] [address] [place] [address] Jewel Bustillo PA MR hip left wo IV contrast 11/09/2024 Travel from Last 3 Months Immunizations Immunization [...] Dermatology [address] [place] [address] Cristal Mackey MD [address] [place] [address] 07/17/2025 10:00 AM EST Office [facility] [address] [place] [address] Jr. Man Colmenares DO [address] [facility] [address] [place] [address] 09/11/2025 10:45 AM EDT Office Visit [facility] [address] [place] [address] Cristal Mackey MD [address] [place] [address] Health Maintenance Due Date Last Done Comments CT Colonography 1950 Colonoscopy 1950 Colorectal Cancer Screening 1950 FIT-DNA 1950 FIT 1950 FOBT 1950 Sigmoidoscopy 1950 Influenza Vaccine (#1) 2025 5, 03/23/2023, 03/27/2022, Additional history exists Pneumococcal Vaccine: 65+ Years Completed 8, 07/22/2016 Procedures Procedure Name Priority Date/Time Associated Diagnosis Comments NM ARTHROCENTESIS ASPIR&/INJ MAJOR JT/BURSA W/O US Routine 11/10/2024 10:17 AM EDT Trochanteric bursitis of left hip MR HIP LEFT WO IV CONTRAST Routine 11/09/2024 12:41 PM EDT Acute hip pain, left from Last 3 Months Results * NM ARTHROCENTESIS ASPIR&/INJ MAJOR JT/BURSA W/O US (11/10/2024 [...] Months Insurance [employer] Care Teams Locomotive Firer Relationship Specialty Start Date End Date Deandre Staley MD [address] [place] [address] PCP - General Family Medicine 01/10/25
--- OUTSIDE RECORDS SUMMARY | 2025-02-05 12:29 | XMS_ITS | Encounter Summary ---
Author Organization [facility] Address [address] [place] [address] Phone Care Team Providers Care Med Aide Name Role Phone Padmini Murillo Primary Care Provider Deandre Staley MD Primary Care Provider [phone] Encounter Details Date Type Department Care Team (Late st Contact Info) Description 04/19/2024 Scanned Document [facility] [address] [place] [address] Scanning, Generic Provider Social History Tobacco Use [...] on filedocumented in this encounter Care Teams Med Aide Relationship Specialty Start Date End Date Padmini Murillo APRN-CNP [address] [place] [address] PCP - General 04/19/24 05/07/24 Deandre Staley MD [address] [place] [address] PCP - General Family Medicine 05/08/24 documented as of this encounter
--- OUTSIDE RECORDS SUMMARY | 2025-02-05 12:29 | XMS_ITS | Clinical Summary ---
Author Organization [employer] s tem Address [id number] [address] [place] [address] Care Team Providers Care Disease Management Nurse Name Role Phone Derick Chew DO Primary Care Provider [phone] Allergies Active Allergy Reactions Criticality Noted Date [...] nal Result [facility] EXTERNAL NON-INTERFACED REF LAB [address] [facility] [address] from Last 3 Months or Most Recently Relevant to Health Maintenance Insurance [facility] MEDICARE Care Teams Disease Management Nurse Relationship Specialty Start Date End Date Derick Chew DO [address] [place] [address] PCP - General 03/22/17
--- OUTSIDE RECORDS SUMMARY | 2025-02-05 12:29 | XMS_ITS | Patient Health Record ---
Author Organization [facility] [place] Address [address] [place] [address] Care Team Providers Care Art Supervisor Name Role Phone Gabe Staley Primary Care Provider Padmini Murillo [phone] Allergies Allergen (clinical drug ingredient) Drug/Non Drug Allergy documented on EMR Reaction Allergy Type Onset Date Status codeine Codeine does not work Drug Allergy Act barbara Results Component Value Reference Range Notes FREE T3 Reviewed date:02/24/2024 06:15:51 PM Interpretation: Performing Lab: Notes/Report: [facility] , Free T3 2.99 2.18-3.98 pg/mL Performing Lab: see note [facility] T4 Reviewed date:02/24/2024 06:15:51 PM Interpretation: Performing Lab: Notes/Report: [facility] , T4 Thyroxine 5.10 4.50-12.10 ug/dL Performing Lab: see note - [facility] LB TSH Reviewed date:02/24/2024 06:15:51 PM Interpretation: Performing Lab: Notes/Report: [facility] , Thyroid Stimulating Hormone 1.124 0.358-3.740 uIU/mL Performing Lab: see note - [facility] LB PTT Reviewed date:06/27/2024 12:30:45 PM Interpretation: Performing Lab: Notes/Report: [facility] , Partial Thromboplastin Time 31.6 22.3-36.2 sec Performing Lab: see note - [facility] LB Prothrombin Time INR Reviewed date:06/27/2024 12:30:45 PM Interpretation: Performing Lab: Notes/Report: [facility] , Prothrombin Time 10.6 9.0-11.6 sec INR 1.00 DESIRED INR: 2.0-3.0 CONDITIONS NOT LISTED BELOW 2.5-3.5 FOR PROSTHETIC HEART VALVE REPLACEMENT 2.5-3.5 RECURRENT THROMBOSIS Performing Lab: see note ML - [facility] LB XR chest 2V Reviewed date:06/27/2024 04:07:24 PM Interpretation: Performing Lab: Notes/Report: Source Facility: [place] [address] XRay Report Signed Patient: MARY DIAZ MR#: [id number] : 1950 Acct:[id number] Age/Sex: 74 / M ADM Date: 06/27/24 Loc: [facility] Attending Dr: Brian Carrington M.D. Ordering Physician: Brian Carrington M.D. Date of Service: 06/27/24 Procedure(s): XR chest 2V Accession Number(s): [id number] cc: Yolande Staley M.D.; Brian Carrington M.D. [place] [address] Patient Name: MARY DIAZ MRN: [id number] date: 1950 Sex: M Assigned Patient Location: [facility] Current Patient Location: [facility] Accession/Order Number: [id number] Exam Date: 06/27/2024 10:55 Report Date: 06/27/2024 [...] Signed By: 06/27/24 1526 DD/ 1523 TD/TT: Cyber Security Analyst: [place] [address] XRay Report Signed Patient: BART DIAZ MR#: [id number] : 1950 Acct:[id number] Age/Sex: 74 / M ADM Date: 06/27/24 Loc: [facility] Attending Dr: Jimmy Carrington M.D. Ordering Physician: Brian Carrington M.D. Date of Service: 06/27/24 Procedure(s): XR aziza st 2V Accession Number(s): [id number] cc: Yolande Staley M.D. ; Brian Carrington M.D. [place] [address] Patient Name: MARY DIAZ MRN: [id number] date: 1950 Sex: M Assigned Patient Location: [facility] Current Patient Location: [facility] Accession/Order Numb er: [id number] Exam Date: 06/27/2024 10:55 Report Date: 06/27/2024 [...] Signed By: 06/27/24 1526 DD/ 1523 TD/TT: Cyber Security Analyst: XR hip LT min 2V Reviewed date:07/05/2024 07:10:00 PM Interpretation: Performing Lab: Notes/Report: Source Facility: [place] [address] XRay Report Signed Patient: MARY DIAZ MR#: [id number] : 1950 Acct:[id number] Age/Sex: 74 / M ADM Date: 07/04/24 Loc: [facility] Attending Dr: Tamiko Osman M.D. Ordering Physician: Tamiko Osman M.D. Date of Service: 07/04/24 Procedure(s): XR hip LT min 2V Accession Number(s): [id number] cc: Tamiko Osman M.D.; Yolande Staley M.D. [place] [address] Patient Name: MARY DIAZ MRN: [id number] date: 1950 Sex: M Assigned Patient Location: [facility] Current Patient Location: Accession/Order Number: [id number] Exam Date: 07/04/2024 12:10 Report Date: 07/05/2024 [...] M.D. Signed By: 07/05/24505 DD/ 2 TD/TT: Cyber Security Analyst: [place] [address] XRay Report Signed Patient: BART DIAZ MR#: [id number] : 1950 Acct:[id number] Age/Sex: 74 / M ADM Date: 07/04/24 Loc: [facility] Attending Dr: Rosalba Osman M.D. Ordering Physician: Tamiko Osman M.D. Date of Service: 07/04/24 Procedure(s): XR hip LT min 2V Accession Number(s): [id number] cc: Marvin Osman M.D.; Yolande Staley M.D. [place] [address] Patient Name: MARY DIAZ MRN: [facility]:[id number] date: 1950 Sex: M Assigned Patient Location: [facility] Current Patient Location: Accession/Order Numb er: [id number] Exam Date: 07/04/2024 12:10 Report Date: 07/05/2024 [...] M.D. Signed By: 07/05/24505 DD/ 2 TD/TT: Cyber Security Analyst: MEENA Reviewed date:07/13/2024 05:38:10 PM Interpretation: Performing Lab: Notes/Report: [facility] , Aspartate Amino Transferase 14 15-37 U/L Performing Lab: see note [facility] SGPT Reviewed date:07/13/2024 05:38:10 PM Interpretation: Performing Lab: Notes/Report: [facility] , Alanine Aminotransferase 29 16-63 U/L Performing Lab: see note - [facility] LB White Blood Cells Reviewed date:08/20/2024 08:36:33 PM Interpretation: Performing Lab: Notes/Report: [facility] , White Blood Cells See Below For Report White Blood Cells White Blood Cells Moderate White Blood Cells Performing Lab: see note LC - [facility] LB Epithelial Cells Reviewed date:08/20/2024 08:36:33 PM Interpretation: Performing Lab: Notes/Report: [facility] , Epithelial Cells See Below For Report Epithelial Cells Few Performing Lab: see note LC - [facility] LB Result 1 Reviewed date:08/20/2024 08:36:33 PM Interpretation: Performing Lab: Notes/Report: [facility] , Result 1 See Below For Report Result 1 Many gram positive cocci. Performing Lab: see note LC - [facility] [...] 4 See Below For Report Result 4 MANAGER MARKETING COMMUNICATIONS Performing Lab: see note LC - [facility] [...] acceptable for routine Performing Lab: see note LC - [facility] LB Lower Respiratory Culture Reviewed date:08/20/2024 08:36:33 PM Interpretation: Performing Lab: Notes/Report: [facility] , Lower Respiratory Culture See Below For Report Lower Respiratory Culture WILL FOLLOW Lower Respiratory Culture Routine respiratory natividad Lower Respiratory Culture WILL FOLLOW Lower Respiratory Culture Performed at: - [facility] [place] Lower Respiratory Culture WILL FOLLOW Lower Respiratory Culture [address], [place] [id number] Lower Respiratory Culture WILL FOLLOW Lower Respiratory Culture Facility Operations Manager: Reilly Pimentel PhD, Phone: [phone] Lower Respiratory Culture WILL FOLLOW Performing Lab: see note LC - [facility] LB SEE REPORT - Construction Rigger Id information not found for OBX-specific conference producer legend CT lung screening low-dose Reviewed date:11/21/2024 04:18:23 PM Interpretation: Performing Lab: Notes/Report: Source Facility: [place] [address] CT Scan Report Signed Patient: MARY DIAZ MR#: [id number] : 1950 Acct:[id number] Age/Sex: 74 / M ADM Date: 11/21/24 Loc: CT Attending Dr: Yolande Staley M.D. Ordering Physician: Yolande Staley M.D. Date of Service: 11/21/24 Procedure(s): CT lung screening low-dose Accession Number(s): [id number] cc: Yolande Staley M.D. [place] [address] Patient Name: MARY DIAZ MRN: [id number] date: 1950 Sex: M Assigned Patient Location: CT Current Patient Location: CT Accession/Order Number: [id number] Exam Date: 11/21/2024 12:17 Report Date: 11/21/2024 [...] Campos M.D. 11/21/2024 12:24 PM Dictation Location: [place] [address] Electronically authenticated by: [id number] Y Date: 11/21/2024 12:24 Dictated By: Lupe Campos M.D. Signed By: 11/21/24 1227 DD/ 1224 TD/TT: Cyber Security Analyst: [place] [address] CT Scan Report Signed Patient: BART DIAZ MR#: [id number] : 1950 Acct:[id number] Age/Sex: 74 / M ADM Date: 11/21/24 Loc: CT Attending Dr: Arjun Staley M.D. Ordering Physician: Yolande Staley M.D. Date of Service: 11/21/24 Procedure(s): CT holden g screening low-dose Accession Number(s): [id number] cc: Yolande Staley M.D. [place] [address] Patient Name: MARY DIAZ MRN: [id number] date: 1950 Sex: M Assigned Patient Location: CT Current Patient Location: CT Accession/Order Stan er: [id number] Exam Date: 11/21/2024 12:17 Report Date: 11/21/2024 12:24 At the request of: YOLANDE STALEY MD Procedure: CT lung screening low-dose LOW-DOSE SCREENING CHEST CT WITHOUT CONTRAST COMPARISON: 04/18/2022 CLINICAL DATA: Rode r smoker with 32 year history of [...] Campos M.D. 11/21/2024 12:24 PM Dictation Location: [place] [address] Electronically authenticated by: [id number] Y Date: 11/21/2024 12:24 Dictated By: Lupe Campos M.D. Signed By: 11/21/24 1227 DD/ 1224 TD/TT: Cyber Security Analyst: TRESSA by IFA Reviewed date:01/25/2025 09:57:45 PM Interpretation: Performing Lab: Notes/Report: [facility] , Antinuclear Antibodies, IFA Negative . Negative <1:80 Borderline 1:80 Positive >1:80 ICAP nomenclature: AC-0 For more information about Hep-2 cell patterns use ANApatterns.org, the official website for the International Consensus on Antinuclear Antibody (TRESSA) Patterns (ICAP). Performed at: - [facility] [address] [id number] Facility Operations Manager: Reilly Pimentel PhD, Phone: [phone] Performing Lab: see note - [facility] LB CRP Reviewed date:01/23/2025 02:43:48 PM Interpretation: Performing Lab: Notes/Report: [facility] , C Reactive Protein <0.50 <=0.50 mg/dL Performing Lab: see note ML - [facility] FREE T3 Reviewed date:01/23/2025 02:43:48 PM Interpretation: Performing Lab: Notes/Report: [facility] , Free T3 2.55 2.18-3.98 pg/mL Performing Lab: see note ML - [facility] LB GLYCOHEMOGLOBIN A1C Reviewed date:01/23/2025 02:43:48 PM Interpretation: Performing Lab: Notes/Report: [facility] , Glycohemoglobin A1C 6.0 4.5-6.2 % ADA RECOMMENDED LIMIT 4.0 - 6.0 ADA THERAPEUTIC TARGET < 7.0 ACTION SUGGESTED > 7.0 Estimated Average Glucose 126 Performing Lab: see note ML - [facility] LB LIPID PROFILE Reviewed date:01/23/2025 02:43:48 PM Interpretation: Performing Lab: Notes/Report: [facility] , Triglycerides 116 <=150 mg/dL Cholesterol 152 <=200 mg/dL HDL Cholesterol 54 40-60 mg/dL > or =60 mg/dl - LOW CARDIOVASCULAR RISK <40 mg/dl - HIGH CARDIOVASCULAR RISK LDL Cholesterol Calculated 74.8 <100 mg/dl OPTIMAL 100-129 mg/dl NEAR OR ABOVE OPTIMAL 130-159 mg/dl BORDERLINE HIGH 160-189 mg/dl HIGH >190 mg/dl VERY HIGH VLDL CHOLESTEROL 23.2 Chol HDL Ratio 2.8 3.3 - 4.4 LOW RISK 4.4 - 7.1 AVERAGE RISK 7.1 - 11.0 MODERATE RISK >11.0 HIGH RISK Performing Lab: see note ML - [facility] LB PROF 14(COMP METB) Reviewed date:01/23/2025 02:43:48 PM Interpretation: Performing Lab: Notes/Report: [facility] , Sodium 141 136-145 mmol/L Potassium 4.1 3.5-5.1 mmol/L Chloride 104 98-107 mmol/L Carbon Dioxide 26.8 21.0-32.0 mmol/L Anion Gap 14.3 Glucose 122 74-106 mg/dL Blood Urea Nitrogen 20.0 7.0-18.0 mg/dL Creatinine 1.16 0.70-1.30 mg/dL Estimated GFR ( Keturah >60 >=60 mL/min/1.73m 2 Estimated GFR (Non- Adwoa >60 >=60 mL/min/1.73m 2 BUN Creatinine Ratio 17.2 Calcium 9.5 8.5-10.1 mg/dL Bilirubin Total 0.3 0.2-1.0 mg/dL Aspartate Amino Transferase 13 15-37 U/L Alanine Aminotransferase 31 16-63 U/L Alkaline Phosphatase 59 46-116 U/L Total Protein 7.2 6.4-8.2 g/dL Albumin Level 4.0 3.4-5.0 g/dL Globulin 3.2 Albumin Globulin Ratio 1.3 Performing Lab: see note ML - [facility] PSA SCREENING Reviewed date:01/23/2025 02:43:48 PM Interpretation: Performing Lab: Notes/Report: [facility] , Prostate Specific Antigen Scrn <0.13 <=4.00 ng/mL Performing Lab: see note ML - [facility] RHEUMATOID FACTOR Reviewed date:01/25/2025 09:57:45 PM Interpretation: Performing Lab: Notes/Report: [facility] , Rheumatoid Factor (RF) 12.5 <14.0 IU/mL Performing Lab: see note LC - [facility] LB T4 Reviewed date:01/23/2025 02:43:48 PM Interpretation: Performing Lab: Notes/Report: [facility] , T4 Thyroxine 5.10 4.50-12.10 ug/dL Performing Lab: see note ML - [facility] LB TSH Reviewed date:01/23/2025 02:43:48 PM Interpretation: Performing Lab: Notes/Report: [facility] , Thyroid Stimulating Hormone 0.295 0.358-3.740 uIU/mL Performing Lab: see note ML - [facility] LB URIC ACID SERUM Reviewed date:01/23/2025 02:43:48 PM Interpretation: Performing Lab: Notes/Report: [facility] , Uric Acid 7.9 3.5-7.2 mg/dL Performing Lab: see note ML - [facility] LB Erythrocyte Sedimentation Ra te Reviewed date:01/23/2025 02:43:48 PM Interpretation: Performing Lab: Notes/Report: [facility] , Erythrocyte Sedimentation Rate 7 <=20 mm/hr Performing Lab: see note ML - [facility] LB Testosterone Reviewed date:01/25/2025 09:57:45 PM Interpretation: Performing Lab: Notes/Report: [facility] , Testosterone 299 264-916 ng/dL Adult male reference interval is based on a population of healthy nonobese males (BMI <30) between 19 and 39 years old. Marlon, et.al. JCEM 2017,102;4254-3079. PMID: 33180830. Performing Lab: see note - [facility] LB Antistreptolysin O Ab Reviewed date:01/25/2025 09:57:45 PM Interpretation: Performing Lab: Notes/Report: [facility] , Antistreptolysin O Ab <20.0 0.0-200.0 IU/mL Performed at: [facility] [address] [id number] Facility Operations Manager: Reilly Pimentel PhD, Phone: [phone] Performing Lab: see note - [facility] LB LIPID PROFILE Reviewed date:07/13/2024 05:38:10 PM Interpretation: Performing Lab: Notes/Report: [facility] , Triglycerides 170 <=150 mg/dL Cholesterol 151 <=200 mg/dL HDL Cholesterol 46 40-60 mg/dL > or =60 mg/dl - LOW CARDIOVASCULAR RISK <40 mg/dl - HIGH CARDIOVASCULAR RISK LDL Cholesterol Calculated 71.0 <100 mg/dl OPTIMAL 100-129 mg/dl NEAR OR ABOVE OPTIMAL 130-159 mg/dl BORDERLINE HIGH 160-189 mg/dl HIGH >190 mg/dl VERY HIGH VLDL CHOLESTEROL 34.0 Chol HDL Ratio 3.3 3.3 - 4.4 LOW RISK 4.4 - 7.1 AVERAGE RISK 7.1 - 11.0 MODERATE RISK >11.0 HIGH RISK Performing Lab: see note ML - [facility] LB PROF CHEM 8 (BAS METB) Reviewed date:06/27/2024 12:30:45 PM Interpretation: Performing Lab: Notes/Report: [facility] , Sodium 139 136-145 mmol/L Potassium 4.1 3.5-5.1 mmol/L Chloride 102 98-107 mmol/L Carbon Dioxide 28.6 21.0-32.0 mmol/L Anion Gap 12.5 Glucose 140 74-106 mg/dL Blood Urea Nitrogen 20.0 7.0-18.0 mg/dL Creatinine 1.42 0.70-1.30 mg/dL Estimated GFR ( Keturah 59 >=60 mL/min/1.73m 2 Estimated GFR (Non- Adwoa 49 >=60 mL/min/1.73m 2 BUN Creatinine Ratio 14.1 Calcium 9.9 8.5-10.1 mg/dL Performing Lab: see note ML - [facility] LB CBC AUTO DIFF Reviewed date:06/27/2024 12:30:45 PM Interpretation: Performing Lab: Notes/Report: [facility] , White Blood Count 9.3 4.0-11.0 10 [...] 0.00-0.03 10 3/uL Performing Lab: see note [facility] LB PROF CHEM 8 (BAS METB) Reviewed date:05/23/2024 08:34:54 PM Interpretation: Performing Lab: Notes/Report: [facility] , Sodium 137 136-145 mmol/L Potassium 4.3 3.5-5.1 mmol/L Chloride 100 98-107 mmol/L Carbon Dioxide 27.6 21.0-32.0 mmol/L Anion Gap 13.7 Glucose 105 74-106 mg/dL Blood Urea Nitrogen 35.0 7.0-18.0 mg/dL Creatinine 1.50 0.70-1.30 mg/dL Estimated GFR ( Keturah 56 >=60 mL/min/1.73m 2 Estimated GFR (Non- Adwoa 46 >=60 mL/min/1.73m 2 BUN Creatinine Ratio 23.3 Calcium 9.5 8.5-10.1 mg/dL Performing Lab: see note - [facility] LB CBC AUTO DIFF Reviewed date:01/23/2025 02:43:48 PM Interpretation: Performing Lab: Notes/Report: [facility] , White Blood Count 7.6 4.0-11.0 10 3/uL Red Blood Count 4.25 4.70-6.10 10 6/uL Hemoglobin 12.7 14.0-18.0 g/dL Hematocrit 38.8 42.0-54.0 % Mean Corpuscular Volume 91.3 80.0-94.0 fL Mean Corpuscular Hemoglobin 29.9 25.9-34.0 pg Mean Corpuscular HGB Conc 32.7 29.9-35.2 g/dL Red Cell Distribution Width 12.9 11.0-15.0 % Platelet Count 308 150-450 10 3/uL Mean Platelet Volume 9.7 9.5-13.5 fL Neutrophils Percent Auto 80.1 43.0-75.0 % Lymphocytes Percent Auto 13.9 20.5-60.0 % Monocytes Percent Auto 5.6 1.7-12.0 % Eosinophils Percent Auto 0.0 0.9-7.0 % Basophils Percent Auto 0.1 0.2-2.0 % Immature Granulocytes Pct Auto 0.3 0.0-0.5 % Neutrophils Absolute Auto 6.1 1.4-6.5 10 3/uL Lymphocytes Absolute Auto 1.1 1.2-3.8 10 3/uL Monocytes Absolute Auto 0.4 0.3-0.8 10 3/uL Eosinophils Absolute Auto 0.0 0.0-0.7 10 3/uL Basophils Absolute Auto 0.0 0.0-0.1 10 3/uL Immature Granulocytes Abs Auto 0.02 0.00-0.03 10 3/uL Performing Lab: see note ML - [facility] LB Reason For Referral Diagnosis 1 Essential hypertensi on (I10) Referral Organization [facility] Referring Provider First Name Padmini Referring Provider Last Name Chidi Referring Provider [facility] Referred Provider Rolly Michaels Referred Provider Specialty Cardiology Referral Priority Routine Diagnosis 1 BP (high blood press ure) (I10) Referral Organization [facility] Referring Provider First Name Gabe Referring Provider Last Name Luís Referring Provider [facility] Referred Provider Man Burciaga Referred Provider Specialty Cardiology Referral Priority Routine Medications Medication SIG (Take, Route, Frequency, Duration) Notes Start Date End Date Status Trelegy Ellipta 100-62.5-25 MCG/ACT 1 puff Inhalation Once a day for 90 days Active Pantoprazole Sodium 40 MG TAKE 1 TABLET BY MOUTH EVERY DAY IN THE EVENING for 90 days Active Ferrous Sulfate 325 (65 Fe) MG 1 tablet Orally twice daily for 30 days 01/23/2025 Active Methocarbamol 500 MG 1 tablet Orally [...] Problem Status W/U Status Risk Notes Problem 999458113 Pneumonia, unspecified organism (J18.9) Active confirmed Problem 66117040 Diaphragmatic hernia without obstruction or gangrene (K44.9) Active confirmed Problem 191146240 Diverticulosis o f large intestine without perforation or abscess without bleeding (K57.30) Active confirmed Problem Primary osteoarthritis (628700689) Unilateral primary osteoarthritis, right knee (M17.11) Active confirmed Problem Acquired spondylolisthesis (687172562) Spondylolisthesis , cervical region (M43.12) Active confirmed Problem Epididymitis (46255775) Epididymitis (N45.1) Active confirmed Problem Fatigue (69121432) Fatigue (R53.83) Active conf irmed Problem Hypothyroid (43707921) Hypothyroid (E03.9) Active confirmed Problem Essential hypertension (48979042) Essential hypertension (I10) Active confirmed Problem Gout (26783418) Gout (M10.9) Active confirmed Problem Degeneration of cervical intervertebral disc (40933495) Degenerative disc disease, cervical (M50.30) Active confirmed Problem Lumbar radiculopathy (277947221) Lumbar radiculopathy (M54.16) Active confirmed Problem Arthralgia (71708065) Arthralgia (M25.50) Active confirmed Problem Bladder cancer (214668433) Bladder cancer (C67.9) Active confirmed Problem Trochanteric bursitis of left hip (188638234991040) Trochanteric bursitis of left hip (M70.62) Active confirmed Problem Cervical spondylosis without myelopathy (383692298) Spondylosis of cervical region without myelopathy or radiculopathy (M47.812) Active confirmed Problem Lumbosacral spondylosis without myelopathy (88688775) Spondylosis of lumbar region without myelopathy or radiculopathy (M47.816) Active confirmed Problem Acute sinusitis (45171269) Acute sinus infection (J01.90) Active confirmed Problem Overweight (813176298) Over weight (E66.3) Active confirmed Problem Liver cyst (27604856) Liver cyst (K76.89) Active confirmed Problem Osteoarthritis of shoulder (95438373) 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) Active confirmed Problem Chronic obstructive pulmonary disease (01142606) COPD, mild (J44.9) Active confirmed Problem Carcinoma of prostate (967049600) Carcinoma of prostate (C61) Active confirmed Problem Multiple fractures of ribs, right side, init for clos fx (S22.41XA) Active confirmed Problem Gastro-esophageal reflux disease (950149696) Gastro-esophageal reflux disease (K21.9) Active confirmed Problem 4620511414 Right knee pain, unspecified chronicity (M25.561) Active confirmed Problem Edema of hand (557091606) Edema of hand (R60.0) Active confirmed Problem Pain in thoracic spine (809618623) Back pain, thoracic (M54.6) Active confirmed Problem Shoulder impingement syndrome (874339607) Shoulder impingement syndrome (M75.40) Active confirmed Problem Essential hypertension (68883952) BP (high blood pressure) (I10) Active confirmed Problem Neurogenic claudication (195375570) Lumbar stenosis with neurogenic claudication (M48.062) Active confirmed Problem Myofascial pain (857905755) Myofascial pain (M79.18) Active confirmed Problem Cervical spondylosis without myelopathy (930984717) Spondylosis of cervical spine with radiculopathy (M47.22) Active confirmed Problem COVID-19 (086548953) COVID-19 (U07.1) Active co nfirmed Vital Signs Temperature 97.7 degrees Fahrenheit 01/04/2025 Blood pressure diastolic 70 mm Hg 01/22/2025 Height 70 in 01/22/2025 Blood pressure systolic 148 mm Hg 01/22/2025 Weight 187.4 lbs 01/22/2025 BMI 26.89 kg/m2 01/22/2025 Encounters Encounter Location Date Provider Diagnosis [facility] [address] [facility] [place] [address] 11/21/2024 Gabe [facility] [address] [place] [facility] [address] 11/27/2024 Gabe Staley BP (high blood pressure) I10 [facility] [address] [place] [facility] [address] 12/08/2024 Gabe Staley [facility] [address] [place] [facility] [address] 01/23/2025 Gabe Staley [facility] [address] [place] [facility] [place] [address] 01/25/2025 Gabe torsten [facility] [address] [place] [facility] [place] [address] 05/04/2024 Gabe Staley [facility] [address] [place] [facility] [address] 05/10/2024 Gabe Staley [facility] [address] [place] [facility] [place] [address] 05/29/2024 Gabe Staley [facility] [address] [place] [facility] [place] [address] 08/16/2024 Gabe Staley Cough R05.9 [facility] [address] [place] [address] 09/13/2024 Gabe Staley [facility] [address] [place] [facility] [place] [address] 11/02/2024 Gabe Staley [facility] [address] [place] [facility] [address] 02/16/2024 Gabe Staley [facility] [address] [place] [facility] [place] [address] 02/24/2024 Gabe Riveray [facility] [address] [place] [facility] [place] [address] 03/14/2024 Gabe torsten [facility] [address] [place] [facility] [address] 04/19/2024 Padmini Murillo Essential hypertensi on I10 [facility] [address] [place] [facility] [place] [address] 04/20/2024 Gabe torsten [facility] [address] [place] [facility] [address] 01/04/2025 Gabe Hoy Acute non-recurrent sinusitis, unspecified location J01.90 and Nasal congestion R09.81 [facility] [address] [place] [facility] [place] [address] 01/22/2025 Gabe Hoy Arthralgia M25.50 ; Lumbar radiculopathy M54.16 and Fatigue R53.83 [facility] [address] [place] [facility] [place] [address] 11/06/2024 Gabe Hoy Acute bronchitis, unspecified organism J20.9 [facility] [address] [place] [facility] [place] [address] 11/27/2024 Gabe Miguely BP (high blood pressure) I10 [facility] [address] [place] [facility] [place] [address] 12/08/2024 Gabe Hoy Essential hypertensi on I10 [facility] [address] [facility] [place] [address] 03/28/2024 Agbe Hoy Essential hypertensi on I10 Assessments Encounter Date Diagnosis (ICD Code) Assessment Notes Treatment Notes Treatment Clinical Notes Section Notes 03/28/2024 Essential hypertension (ICD-10 - I10) 11/06/2024 Acute bronchitis, unspecified organism (ICD-10 - J20.9) Rest and drink more liquids, especially water. You may use a humidifier or vaporizer to help keep the drainage moist. Ekqu-cjf-hzwhcct Nasal Saline may help the stuffy and runny nose. Use Ibuprofen and or Tylenol as needed for fever, chills, body aches or pain. Children 5 years old should not be given nnum-flp-uxmeupk cough and cold medications such as guaifenesin and dextromethorphan. If you're over age 5, you may try zdmz-gns-utvtyhl cold medications such as guaifenesin and dextromethorphan, [...] I10) 12/08/2024 Essential hypertension (ICD-10 - I10) 01/04/2025 Acute non-recurrent sinusitis, unspecified location (ICD-10 - J01.90) Rest and drink more liquids, especially water. You may use a humidifier or vaporizer to help keep the drainage moist. Zfuk-mya-lirqqxf Nasal Saline may help the stuffy and runny nose. Use Ibuprofen and or Tylenol as needed for fever, chills, body aches or pain. Children 5 years old should not be given nnvw-ger-wxhkzzy cough and cold medications such as guaifenesin and dextromethorphan. If you're over age 5, you may try zcop-whe-ofkukks cold medications such as guaifenesin and dextromethorphan, [...] symptoms do not improve within 3-5 days 04/19/2024 Essential hypertension (ICD-10 - I10) 08/16/2024 Cough (ICD-10 - R05.9) 11/27/2024 BP (high blood pressure) (ICD-10 - I10) 01/22/2025 Arthralgia (ICD-10 - M25.50) 01/22/2025 Lumbar radiculopathy (ICD-10 - M54.16) 01/22/2025 Fatigue (ICD-10 - R53.83) 01/04/2025 Nasal [...] End Date [facility] [address] [place] [address] [phone] Mary Diaz Self - patient is [...] 30 Surgical History Surgery Date(Month/Year) Neck Surgery 2019 Rt. knee scope 02/26/23 EGD/ Colonoscopy- Dr. Luis 03/10/23 Bilateral L4-5 transforamina l epidural steroid injection Dr Osman 03/27/2024 Bladder Surgery 2021 Hospitalization History Reason Date(Month/Year) Pneumonia 09/2022
--- OUTSIDE RECORDS SUMMARY | 2025-02-05 12:29 | XMS_ITS | Encounter Summary ---
Author Organization [facility] Address [address] [place] [address] Care Team Providers Care Music Educator Name Role Phone Deandre Staley MD Primary Care Provider [phone] Deandre Staley MD Primary Care Provider [phone] Encounter Details Date Type Department Care Team (Late st Contact Info) Description 02/12/2023 Abstract [facility] [address] [facility] [address] [place] [phone] Jewel Bustillo, SUZAN [address] [facility] [place] [phone] Social History Tobacco Use Types Packs/Day Years [...] Dermatology [address] [place] [address] Cristal Mackey MD [address] [place] [address] 07/17/2025 10:00 AM EST Office Visit [facility] [address] [facility] [place] [phone] Jr. Man Colmenares, DO [address] [facility] [address] [place] [address] 09/11/2025 10:45 AM EDT Office Visit [facility] [address] [place] [address] Cristal Mackey MD [address] [facility] [address] [place] [address] documented as of this encounter Visit Diagnoses Not on filedocumented in this encounter Care Teams Music Educator Relationship Specialty Start Date End Date Deandre Staley MD PCP - General Family Medicine 01/07/23 01/09/25 Deandre Staley MD [address] [place] [address] PCP - General Family Medicine 01/10/25 documented as of this encounter
--- OUTSIDE RECORDS SUMMARY | 2025-02-05 12:29 | XMS_ITS | Clinical Summary ---
Author Organization [facility] Address [address] [place] [address] Care Team Providers Care Concrete Gun Operator Name Role Phone Unavailable Primary Care Provider [...] mouth if needed. 10/04/2023 Active HYDROcodone-acet aminophen ([place]) 5-325 mg tablet Take 1 tablet by [...] Description 12/11/2024 9:00 AM EDT Office Visit [facility] [address] [place] [address] Man Burciaga MD Primary hypertension [...] patient's age to complete this topic Insurance [facility]
--- OUTSIDE RECORDS SUMMARY | 2025-02-05 12:30 | XMS_ITS | Encounter Summary ---
Author Organization [facility] Address [address] [place] [address] Care Team Providers Care Shoe Repairer Name Role Phone Deandre Staley MD Primary Care Provider [phone] Deandre Staley MD Primary Care Provider [phone] Encounter Details Date Type Department Care Team (Late st Contact Info) Description 11/09/2024 Results Follow-Up [facility] [address] [facility] [address] [place] [address] Jewel Bustillo, SUZAN [address] [facility] [place] [address] MR hip left wo IV contrast Social History Tobacco Use Types Packs/Day Years [...] Office Visit [facility] [address] [address] [place] [address] Cristal Mackey MD [address] [facility] [address] [place] [address] 07/17/2025 10:00 AM EST Office Visit [facility] [address] [facility] [place] [phone] Jr. Man Colmenares, [address] [facility] [address] [place] [address] 09/11/2025 10:45 AM EDT Office Visit [facility] [address] [place] [address] Cristal Mackey MD [address] [place] [address] documented as of this encounter Visit Diagnoses Not on filedocumented in this encounter Care Teams Shoe Repairer Relationship Specialty Start Date End Date Deandre Staley MD PCP - General Family Medicine 01/07/23 01/09/25 Deandre Staley MD [address] [place] [address] PCP - General Family Medicine 01/10/25 documented as of this encounter
[2025-02-05 12:33] VITALS: BP 131/74; PULSE 72; TEMP 36.3; O2SAT 98
--- OUTSIDE RECORDS SUMMARY | 2025-02-05 12:47 | XMS_ITS | CCD ---
Author Organization [facility] Care Team Providers Care Coating Mixer Supervisor Name Role Phone MD Deandre Monterroso Primary Care Provider [phone] MD Lionel Whitney Attending Provider Deandre Monterroso Primary Care Physician Leidy Plummer Unavailable Unavailable MD Deandre Monterroso Primary Care Provider [phone] MD Lionel Whitney Attending Provider Zoran Chavez [...] Provider MD Deandre Monterroso Primary Care Provider LIAD Lowery Attending Provider MD Deandre Monterroso Primary Care Provider LIDA Lowery Attending Provider Deandre Monterroso MD Primary Care Provider Lionel WHITNEY Attending Unavailable Lionel WHITNEY Attending Unavailable Lionel HWITNEY Admitting Unavailable Deandre Monterroso MD Primary Care Provider [phone] Lionel Whitney MD Attending Provider Lionel Whitney Admitting Unavailable Lionel Whitney Attending Unavailable Deandre Monterroso Primary Care Unavailable Deandre Monterroso Primary Care Unavailable Esther Lowery Admitting Unavailable Esther Lowery Attending Unavailable Deandre Monterroso Primary Care Unavailable Esther Lowery Admitting Unavailable Esther Lowery Attending Unavailable Lionel Whitney MD Unavailable Deandre Monterroso MD Primary Care Provider [phone] Aftab ZELAYA, Ingrid G Unavailable [phone] Raymond NOBLE, [facility] Unavailable Syeda NOBLE, Andrius Kilgore Attending Unavailable Syeda NOBLE, Andrius Vytautpascale Attending Unavailable Syeda NOBLE, Andrius Vytautpascale Attending Unavailable Syeda NOBLE, Andrius Vytautas Attending Unavailable Syeda NOBLE, Andrius Vytautas Attending Unavailable Syeda NOBLE, Andrius Vytautpascale Attending Unavailable Syeda NOBLE, Andrius Vjayesh Attending Unavailable Deandre Monterroso MD Primary Care Provider [phone] [facility], CADY Referring Unavailable DEANDRE MONTERROSO Primary Care Unavailable ESPINOSA, CADY Referring Unavailable DEANDRE MONTERROSO Primary Care Unavailable [facility], CADY Referring Unavailable DEANDRE MONTERROSO Primary Care Unavailable [facility], CADY Referring Unavailable DEANDRE MONTERROSO Primary Care Unavailable Deandre Monterroso MD Primary Care Provider [phone] Lionel Whitney MD Unavailable [phone] Lionel WHITNEY Attending Unavailable Lionel WHITNEY Attending Unavailable Lionel WHITNEY Referring Unavailable Lionel WHITNEY Admitting Unavailable Deandre Monterroso MD Primary Care Provider [phone] ALEXANDREA GUNTER Attending Unavailable VENNEPUREDDY, NORBERTO Referring Unavailable HOY, DEANDRE M Primary Care Unavailable VENNEPUREDDY, NORBERTO Referring Unavailable HOY, DEANDRE M Primary Care Unavailable HOY, DEANDRE M Primary Care Unavailable VENNEPUREDDY, NORBERTO Referring Unavailable VENNEPUREDDY, NORBERTO Referring Unavailable HOY, DEANDRE M Primary Care Unavailable VENNEPUREDDY, NORBERTO Referring Unavailable HOY, DEANDRE M Primary Care Unavailable VENNEPUREDDY, NORBERTO Referring Unavailable HOY, DEANDRE M Primary Care Unavailable HOY, DEANDRE M Primary Care Unavailable VENNEPUREDDY, NORBERTO Attending Unavailable HOY, DEANDRE M Primary Care Unavailable VENNEPUREDDY, NORBERTO Referring Unavailable HOY, DEANDRE M Primary Care Unavailable VENNEPUREDDY, NORBERTO Referring Unavailable HOY, DEANDRE M Primary Care Unavailable VENNEPUREDDY, NORBERTO Referring Unavailable HOY, DEANDRE M Primary Care Unavailable VENNEPUREDDY, NORBERTO Attending Unavailable HOY, DEANDRE M Primary Care Unavailable HOY, DEANDRE M Primary Care Unavailable VENNEPUREDDY, NORBERTO Referring Unavailable VENNEPUREDDY, NORBERTO Attending Unavailable HOY, DEANDRE M Primary Care Unavailable [...] WHITNEY Referring Unavailable VENNEPUREDDY, NORBERTO Referring Unavailable HOY, DEANDRE M Primary Care Unavailable VENNEPUREDDY, NORBERTO Attending Unavailable VENNEPUREDDIONICIO, NORBERTO Referring Unavailable DEANDRE MONTERROSO Primary Care Unavailable Lionel WHITNEY Attending Unavailable Lionel WHITNEY Attending Unavailable Lionel WHITNEY Admitting Unavailable Lionel WHITNEY Attending Unavailable Lionel WHITNEY R Referring Unavailable Lionel WHITNEY R Attending Unavailable [facility], CADY Attending Unavailable DEANDRE MONTERROSO Primary Care Unavailable ESPINOSA, CADY Referring Unavailable FAVIAN ESPINOSAA Attending Unavailable ESPINOSA, CADY Referring Unavailable DEANDRE MONTERROSO Primary Care Unavailable LAUREN CROOK Attending Unavailable LAUREN CROOK Attending Unavailable LAUREN CROOK Attending Unavailable Deandre Monterroso MD Primary Care Provider [phone] VASU GALEANO Attending Unavailable KAREN BUSTILLO Attending Unavailable KAREN BUSTILLO Attending Unavailable KAREN BUSTILLO Referring Unavailable KAREN BUSTILLO Attending Unavailable JR. DARRIAN, ALEXANDREA Meyers Attending Unavaila shawn COLMENARES JR., ALEXANDREA Meyers Attending Unavaila ble Allergies Allergy Classification Reported Allergen(s) Allergy Type Date of Onset Reaction(s) Facility (10 sources) Acetaminophen; Translations: [acetaminophen] Drug Allergy 0 Itching, Itching agitated, Itching agitated, aggitation [facility] (20 sources) Codeine; Translations: [Codeine] Drug Allergy 4 rash, Agitation [facility] (12 sources) oxyCODONE; Translations: [oxycodone] Drug Allergy 0 Itching, agitated, Itching, agitated, aggitation [facility] (16 sources) Acetaminophen / oxyCODONE; Translations: [acetaminophen-oxyc odone] Drug Allergy aggitation [facility] [place] Rolando Comment on above: pt states this does not work for pt, pt is not allergic to vicodin (7 sources) cyclobenzaprine Drug Allergy 4 itching [facility] (19 sources) HYDROcodone Drug Allergy 3 anxiety [facility] (7 sources) tiZANidine Drug Allergy 4 hives [facility] (6 sources) Acetaminophen / HYDROcodone; Translations: [Vicodin] Drug Allergy [facility] (2 sources) Acetaminophen / oxyCODONE Drug Allergy [facility] (1 source) atorvastatin Drug Allergy [facility] (2 sources) tiZANidine Drug Allergy [facility] (4 sources) Acetaminophen / oxyCODONE; Translations: [Percocet 5/325] Drug Allergy [facility] Repository (1 source) cyclobenzaprine Drug Allergy 4 [facility] Rep[facility] (1 source) HYDROcodone Drug Allergy 4 [facility] (1 source) tiZANidine Drug Allergy 4 [facility] Repository (13 sources) Acetaminophen / oxyCODONE; Translations: [OXYCODONE-ACETAMIN OPHEN] Drug Allergy 3 [facility] (13 sources) tiZANidine; Translations: [TIZANIDINE HCL] Drug Allergy 3 [facility] Medications Current Medications Medication Drug Class(es) Dates Sig (Normalized) Sig (Original) acetaminophen 325 mg / HYDROcodone bitartrate 5 mg oral tablet (20 sources) Opioid Agonist Start: 10-09-2024 acetaminophen-hydr ocodone 325 mg-5 mg oral tablet 1 tab(s), Refill(s) 0 Start Date: 10/09/24 Status: Ordered Repeat number: 1 Start: 08-12-2023 take 1 tablet by barry th every twenty-four hours as needed HYDROcodone-acetaminophen (NORCO) 5-325 mg per tablet Take 1 tablet by mouth at bedtime as needed. 08/12/2023 Active Start: 08-12-2023 take 1 tablet by barry th every twenty-four hours as needed HYDROcodone-acetaminophen ([place]) 5-325 mg tablet Take 1 tablet by [...] Status: Ordered amLODIPine 10 mg oral tablet (20 sources) Dihydropyridine Calcium Channel Boogie Start: 08-12-2023 End: 10-06-2024 amLODIPine (Norvasc) 10 MG tablet 01/22/2024 10/06/2024 Discontinued (Therapy completed) Start: 02-10-2023 End: 07-26-2024 take 1 tablet by mouth once daily amLODIPine (NORVASC) 5 mg tablet Take 5 mg by mouth once daily. 02/10/2023 07/26/2024 Discontinued (Discontinued by another Health Care Provider) Start: 08-07-2019 End: 10-17-2021 take 1 tablet by mouth at bedtime Amlodipine 10 mg Tablet Discontinued 10 MG PO Bedtime August 07, 2019 12:00am October 17, 2021 11:30am aspirin 81 mg chewable tablet (1 source) Platelet Aggregation Inhibitor, Nonsteroidal Anti-inflammatory Drug Start: 12-11-2024 End: 12-11-2025 aspirin 81 mg chewable tablet Take 81 mg by mouth every 48 hours. 12/11/2024 12/11/2025 Active carvedilol 25 mg oral tablet (20 sources) alpha-Adrenergic Boogie, beta-Adrenergic Boogie Start: 10-17-2021 take 1 tablet by mouth twice daily Carvedilol 25 mg Tablet Active 25 MG PO Twice daily October 16, 2021 11:00pm Start: 09-19-2021 take 2 tablets by mo [facility] twice daily carvedilol 6.25 mg Tab 12.5 mg = 2 tab(s), Oral, BID, Refills(s) 0 Start Date: 09/19/21 Status: Ordered Start: 09-19-2021 carvedilol 6.2 5 mg Tab Refills(s) 0 Start Date: 09/19/21 Status: Ordered take 1 tablet by barry every twelve hours Carvedilol 12.5 MG 1 tablet with food Orally Twice a day Active celecoxib 200 mg oral capsule (5 sources) Nonsteroidal Anti-inflammatory Drug Start: 10-27-2024 End: 12-26-2024 take 1 capsule by mouth once daily at mealtime celecoxib (CeleBREX) 200 MG capsule Indications: Acute hip pain, left Take 1 capsule (200 mg) by mouth Daily Take with food 30 capsule 1 10/27/2024 12/26/2024 Active colchicine 0.6 mg oral tablet (16 sources) Start: 02-03-2023 End: 07-26-2024 take 1 tablet by mouth once daily as needed for pain Colcrys 0.6 mg oral tablet 0.6 mg = 1 tab(s), Oral, Daily, PRN Gout pain, Refills(s) 0 Start Date: 02/03/23 Status: Ordered Repeat number: 1 diclofenac sodium 75 mg delayed release oral tablet (20 sources) Nonsteroidal Anti-inflammatory Drug Start: 10-17-2021 End: 10-27-2024 take 1 tablet by mouth twice daily [...] 2020 7:04am doxazosin 1 mg oral tablet (20 sources) alpha-Adrenergic Boogie Start: 07-17-2024 End: 07-17-2025 doxazosin (CARDURA) 1 mg tablet Take 1 mg by mouth. 07/17/2024 07/17/2025 Active enteric contrast (will be provided with radiology test) (13 sources) Start: 08-16-2024 enteric contrast (will be provided with radiology test) For CT CHESTABD/PEL W IVCON Routine order Administer, As Directed One Time Only, via Oral, Rectal, both Oral and Rectal, Enteric Tube, Stoma or Indwelling Catheter, Enteric Contrast as designated per enteric contrast guidelines 1 Each 08/16/2024 Active fluorouracil 50 mg/ml topical cream (7 sources) Nucleoside Metabolic Inhibitor Start: 09-11-2024 End: 10-06-2024 Fluorouracil 5 % cream Apply to directed areas on the forearms and backs of hands twice a day x 14 days. Dispense 30 day supply but only use for 14 days. 09/11/2024 Active 30 actuat fluticasone furoate 0.1 mg/actuat / umeclidinium 0.0625 mg/actuat / vilanterol 0.025 mg/actuat dry powder inhaler (20 sources) Anticholinergic, Corticosteroid, beta2-Adrenergic Agonist Start: 02-03-2023 take 1 puff(s) by inhalation once daily fluticasone-umecl idin-vilanter (TRELEGY ELLIPTA) 100-62.5-25 mcg inhalation powder = [...] INH INHALATION Daily August 07, 2019 1:00am Fluticasone-Umec lidin-Vilant (Trelegy Ellipta) 100-62.5-25 MCG/ACT aerosol powder Inhale. Active take 1 puff(s) by inhalation once daily rtscvwqoaki-pjlhfevqb-golpawkh (TRELEGY ELLIPTA) 100-62.5-25 mcg inhalation powder Inhale 1 Puff as instructed once daily. Active take 1 puff(s) by inhalation in the morning Trelegy Ellipta 100-62.5-25 mcg blister with device Inhale 1 puff early in the morning.. Active hydroCHLOROthiazide 12.5 mg / lisinopril 20 mg oral tablet (20 sources) Thiazide Diuretic, Angiotensin Converting Enzyme Inhibitor Start: 07-17-2024 End: 07-17-2025 take 1 tablet by mouth in the morning lisinopril-hydroCHLOROthiazide 20-12.5 MG tablet Take 1 tablet by mouth in the morning. 07/17/2024 07/17/2025 Active Start: 05-08-2024 End: 07-17-2025 take 1 tablet by mouth once daily lisinopril-hydroCHLOROthiazide (ZESTORET IC) 20-12.5 mg per tablet Take 1 tablet by mouth once daily. 07/17/2024 07/17/2025 Active iv contrast (will be provided with radiology test) (13 sources) Start: 08-16-2024 iv contrast (w ill be provided with radiology test) CT Chest ABD/PEL-Inject, intravenously, [...] administration guidelines link. 1 Each 08/16/2024 Active levoFLOXacin 750 mg oral tablet (3 sources) Quinolone Antimicrobial Start: 11-25-2023 End: 10-06-2024 levoFLOXacin (Levaquin) 750 MG tablet 11/25/2023 10/06/2024 Discontinued (Therapy completed) levothyroxine sodium 0.025 mg oral tablet (13 sources) l-Thyroxine levothyroxine (Synthroid, Levoxyl) 25 MCG tablet Take 12.5 mcg by mouth in the morning. Take before meals. Active levothyroxine (S ynthroid, Levoxyl) 25 MCG tablet Take by mouth Daily before meals Active End: 05-08-2024 take 0.5 tablet by mouth in the morning levothyroxine (Synthroid, Levoxyl) 25 mcg tablet Take 0.5 tablets (12.5 mcg) by mouth early in the morning.. 05/08/2024 Discontinued (Therapy completed) liothyronine (20 sources) l-Triiodothyronine Start: 10-11-2023 take 1 tablet by mouth once daily Liothyronine 5 mcg tablet Active 25 MCG PO Daily October 10, 2023 11:00pm Start: 10-11-2023 take 25 ug by mouth once daily Liothyronine Active 25 MCG PO Daily October 11, 2023 12:00am Start: 10-04-2023 take 1 tablet by barry th in the morning liothyronine (Cytomel) 25 MCG tablet Take 25 mcg by mouth in the morning. 10/04/2023 Active Start: 10-04-2023 take 0.5 tablet by m outh once daily liothyronine (Cytomel) 25 mcg tablet Take 0.5 tablets (12.5 mcg) by mouth once daily. 10/04/2023 Active Start: 10-04-2023 liothyronine 2 5 mcg Tab Refills(s) 0 Start Date: 10/04/23 Status: Ordered Repeat number: 1 lisinopril 20 mg oral tablet (20 sources) [...] 07/17/2025 Active methocarbamol 500 mg oral tablet (20 sources) Muscle Relaxant Start: 04-21-2023 take 1 tablet by mouth every twenty-four hours as needed methocarbamol (Robaxin) 500 mg tablet Take 1 tablet (500 mg) by mouth once daily as needed for muscle spasms. 04/21/2023 Active End: 12-13-2024 methocarbamol 1,000 mg table t Take 1,000 mg by mouth as needed (bedtime prn). 12/13/2024 Discontinued (Discontinued by another Health Care Provider) End: 10-06-2024 Methocarbamol 1000 MG tablet Take 1,000 mg by mouth 10/06/2024 Discontinued (Therapy completed) Methocarbamol 10 00 MG tablet Take 1,000 mg by mouth Active methocarbamol 1, 000 mg tablet Take 1,000 mg by mouth as needed (bedtime prn). Active metoprolol tartrate 50 mg oral tablet (5 sources) beta-Adrenergic Boogie Start: 03-28-2024 End: 10-06-2024 metoprolol tartrate (Lopressor) 50 MG tablet 03/28/2024 10/06/2024 Discontinued (Therapy completed) Start: 03-28-2024 Metoprolol Tar trate Active MG [...] mv-min/folic/K1/lyc open/lutein (MEN 50 PLUS MULTIVITAMIN ORAL) (20 sources) take 1 tablet by mouth once [...] 10-18-2022 take 1 tablet by barry th at bedtime pantoprazole (ProtoNix) 40 MG EC tablet Take 40 mg by mouth at bedtime. 10/18/2022 Active rosuvastatin calcium 20 mg oral tablet (20 sources) HMG-CoA Reductase Inhibitor Start: 05-08-2024 End: 07-17-2025 take 1 tablet by mouth in the morning rosuvastatin (Crestor) 20 MG tablet Take 20 mg by mouth in the morning. 07/17/2024 07/17/2025 Active sildenafil 100 mg oral tablet (20 sources) Phosphodiesterase 5 Inhibitor Start: 10-04-2023 take 1 tablet by mouth every hour as needed, then take 1 tablet by mouth every twenty-four hours as needed sildenafil (Viagra) 100 MG tablet TAKE 1 TABLET BY MOUTH 1 HR PRIOR TO SEXUAL ACTIVITY NEEDED. DON T EXCEED 1 TABLET IN A 24 HR PERIOD 10/14/2023 Active Start: 10-04-2023 take 1 tablet by barry th every twenty-four hours sildenafil 100 mg Tab 100 mg = 1 tab(s), Oral, As Directed, Take 1 tablet 1 hr prior to sexual activity as needed. Don't exceed 1 tab (100 mg) in a 24 hr period., # 30 tab(s), Refills(s) 3, Pharmacy: [id number], 170, cm, 10/04/23 10:36:00 EDT, Height/Length Dosing, 84, kg, 10/04/23 10:36:00 EDT, Weight Dosing Start Date: 10/04/23 Status: Ordered Quantity: 30.0 Unit: tab(s) Repeat number: 4 Start: 07-05-2022 take 1 tablet by barry th every twenty-four hours sildenafil 100 mg Tab 100 mg = 1 tab(s), Oral, Daily, Take 1 tablet 1 hr prior to sexual activity as needed. Don't exceed 1 tab (100 mg) in a 24 hr period., # 30 tab(s), Refills(s) 3, Pharmacy: [id number], 170, cm, 02/24/22 10:53:00 EDT, Height/Length Dosing, 78, kg, 02/24/22 10:53:00 EDT, Weight Dosing Start Date: 07/05/22 Status: Ordered Start: 09-19-2021 sildenafil 100 mg Tab 100 mg = 1 tab(s), Oral, Daily, Take 1 pill 30 minutes prior to sexual relations, # 30 tab(s), Refills(s) 3, Pharmacy: [id number], 170, cm, 09/19/21 10:16:00 EDT, Height/Length Dosing, 78, kg, 09/19/21 10:16:00 EDT, Weight Dosing Start Date: 09/19/21 Status: Ordered solifenacin succinate 10 mg oral tablet (12 sources) Cholinergic Muscarinic Antagonist Start: 07-06-2024 solifenacin (VESIcare) 10 MG tablet 07/06/2024 Active TENS Unit (2 sources) Start: 09-08-2019 tiZANidine 4 mg oral tablet (5 sources) Central alpha-2 Adrenergic Agonist Start: 08-12-2024 take 1 tablet by mouth every six hours as needed tiZANidine (ZANAFLEX) 4 mg tablet Take 4 mg by mouth every 6 hours as needed. 08/12/2024 Active Start: 02-03-2023 take 1-2 tablets by mouth at bedtime as needed for muscle spasms tiZANidine 4 mg Tab 1-2 tabs, Oral, Bedtime, PRN Spasm, Refills(s) 0 Start Date: 02/03/23 Status: Ordered take 1 tablet by barry th every eight hours tiZANidine HCl 4 MG 1 tablet as needed Orally Three times a day Active Trelegy Ellipta 100 mcg (2 sources) take 1 puff(s) by inhalation once daily Trelegy Ellipta 100 mcg 1 puff Inhalation Once a day Active Trelegy Ellipta 100 mcg-62.5 mcg-25 mcg inhalation powder (12 sources) Start: 02-03-2023 take 1 puff(s) by inhalation once daily Trelegy Ellipta 100 mcg-62.5 mcg-25 mcg inhalation powder = 1 puff(s), Inhalation, Daily, Refills(s) 0 Start Date: 02/03/23 Status: Ordered Repeat number: 1 Start: 02-03-2023 take 1 puff(s) by in halation once daily Trelegy Ellipta 100 mcg-62.5 mcg-25 [...] 07, 2019 12:00am April 11, 2020 12:50pm bcg (TANISHA BCG) 50 mg in NaCl 0.9% 50 mL (6 sources) Start: 09-13-2024 End: 09-13-2024 50 mg, INTRAVESICAL, ONCE, 1 dose, On Wed09/13/24 at 1400, Instill into bladder via catheter and retain for 120 minutes, followed by bladder drainage. PROTECT FROM LIGHT Hazardous Chemotherapy Drug: Use appropriate PPE. Protect from Light. Start: 08-30-2024 End: 08-30-2024 50 mg, INTRAVESICAL, ONCE, 1 dose, On Wed08/30/24 at 1330, Instill into bladder via catheter and retain for 120 minutes, followed by bladder drainage. PROTECT FROM LIGHT Hazardous Chemotherapy Drug: Use appropriate PPE. Protect from Light. Start: 08-23-2024 End: 08-23-2024 50 mg, INTRAVESICAL, ONCE, 1 dose, On Wed08/23/24 at 1400, Instill into bladder via catheter and retain for 120 minutes, followed by bladder drainage. PROTECT FROM LIGHT Hazardous Chemotherapy Drug: Use appropriate PPE. Protect from Light. Start: 08-16-2024 End: 08-16-2024 50 mg, INTRAVESICAL, [...] # 2 tab(s), Refills(s) 0, Pharmacy: [facility]/pharmacy #[id number], 170, cm, 10/26/23 11:14:00 EDT, Height/Length Dosing, 84, kg, 10/04/23 10:36:00 EDT, Weight Dosing Start Date: 04/13/24 Status: Ordered Start: 01-20-2023 take 1 tablet by barry th once daily Cipro 500 mg Tab 500 mg = 1 tab(s), Oral, Daily, take one tab day before procedure and one tab after procedure, # 2 tab(s), Refills(s) 0, Pharmacy: [facility]/pharmacy #[id number], 170, cm, 01/20/23 10:45:00 EDT, Height/Length Dosing, 83.5, kg, 01/20/23 10:45:00 EDT, Weight Dosing Start Date: 01/20/23 Status: Ordered Start: 12-31-2022 take 1 tablet by barry th once daily Cipro 500 mg Tab 500 mg = 1 tab(s), Oral, Daily, Take 1 tablet the day before the procedure and 1 tablet after the procedure, # 6 tab(s), Refills(s) 0, Pharmacy: [facility]/pharmacy #[id number], 170, cm, 09/22/22 12:23:00 EDT, Height/Length Dosing, 78, kg, 02/24/22 10:53:00 EDT, W... Start Date: 12/31/22 Status: Ordered Start: 07-02-2022 take 1 tablet by barry th once daily Cipro 500 mg Tab 500 mg = 1 tab(s), Oral, Daily, Take 1 tablet the day before the procedure and 1 tablet after the procedure, # 6 tab(s), Refills(s) 0, Pharmacy: [facility]/pharmacy #[id number], 170, cm, 02/24/22 10:53:00 EDT, [...] # 2 tab(s), Refills(s) 0, Pharmacy: [facility]/pharmacy #[id number], 170, cm, 11/05/21 11:37:00 EDT, [...] 2022 12:00am diazePAM 5 mg oral tablet (11 sources) [...] # 2 cap(s), Refills(s) 0, Pharmacy: [facility]/pharmacy #[id number], 188, cm, 02/10/23 14:22:00 EDT, [...] 16, 2021 11:00pm February 06, 2022 1:19pm lidocaine hydrochloride 0.02 mg/mg topical gel (11 sources) Antiarrhythmic, Amide Local Anesthetic Start: 09-13-2024 End: 09-13-2024 11 mL, OTHER, ONCE, 1 dose, On Wed09/13/24 at 1400, Intravesical administration Start: 08-30-2024 End: 08-30-2024 11 mL, OTHER, ONCE, 1 dose, On Wed08/30/24 at 1330, Intravesical administration Start: 08-23-2024 End: 08-23-2024 11 mL, OTHER, ONCE, 1 dose, On Wed08/23/24 at 1400, Intravesical administration Start: 08-16-2024 End: 08-16-2024 11 mL, OTHER, [...] 05, 2022 11:00pm February 17, 2022 9:48am methylPREDNISolone acetate 20 mg/ml injectable suspension (4 sources) Corticosteroid Start: 10-06-2024 End: 10-06-2024 methylPREDNISolone Acetate (DEPO-Medrol) injection 40 mg Start: 10-06-2024 End: 10-06-2024 40 mg, Intra-articular, Once PRN Procedure, Starting on Wed10/06/24 at 1030, For 1 dose omeprazole 40 mg delayed release oral capsule [...] April 19, 2020 October 17, 2021 11:31am regadenoson (Lexiscan) injection 0.4 mg (1 source) Start: 09-20-2024 End: 09-20-2024 0.4 mg, intravenous, Once, On Wed09/20/24 at 1415, For 1 dose Tc-99m tetrofosmin (Myoview) injection 10 millicurie (1 source) Start: 09-20-2024 End: 09-20-2024 10 millicurie, intravenous, Once in imaging, Starting on Wed09/20/24 at 1238, For 1 dose, Administer 45 to 90 minutes prior to imaging unless otherwise indicated. Tc-99m tetrofosmin (Myoview) injection 30 millicurie (1 source) Start: 09-20-2024 End: 09-20-2024 30 millicurie, intravenous, Once in imaging, Starting on Wed09/20/24 at 1349, For 1 dose, Administer 45 to 90 minutes prior to imaging unless otherwise indicated. Problems Active Problems Problem Classification Problem Date Documented Da te Episodic/Chronic Acute and unspecified renal failure (1 source) Acute kidney failure, unspecified; Translations: [ACUTE KIDNEY FAILURE UNSPECIFIED] Onset: 3 Episodic Cancer of bladder (20 sources) Malignant tumor of urinary bladder; Translations: [Malignant neoplasm of bladder, unspecified] Onset: 2 Chronic Cancer of prostate (20 sources) Malignant tumor of prostate 08-22-2014 Chronic Comment on above: just had a surgery d one radical prostectomy at [facility] Cancer; other and unspecified primary (10 sources) H/O: malignant neoplasm 10-04-2023 Episodic Chronic obstructive pulmonary disease and bronchiectasis (16 sources) Chronic obstructive lung disease; Translations: [Chronic obstructive pulmonary disease, unspecified] 02-03-2023 Chronic Comment on above: mild Deficiency and other anemia (13 sources) Iron deficiency anemia; Translations: [Iron deficiency anemia, unspecified] Onset: 3 Episodic Disorders of lipid metabolism (13 sources) Mixed hyperlipidemia; Translations: [Mixed hyperlipidemia] Onset: 4 05-08-2024 Chronic Esophageal disorders (20 sources) Gastroesophageal reflux disease; Translations: [Gastro-esophageal reflux disease without esophagitis] Onset: 3 08-22-2014 Chronic Essential hypertension (20 sources) Hypertensive disorder; Translations: [Essential hypertension] Onset: 2 08-22-2014 Chronic Fluid and electrolyte disorders (1 source) Hypokalemia; Translations: [HYPOKALEMIA] Onset: 3 Episodic Genitourinary symptoms and ill-defined conditions (3 sources) Blood in urine; Translations: [Gross hematuria] Onset: 2 Episodic Gout and other crystal arthropathies (20 sources) Primary gout; Translations: [Other chondrocalcinosis, right knee] Onset: 3 08-22-2014 Chronic Comment on above: lots of inflammation per pt sometimes has to get steroids Immunizations and screening for infectious disease (4 sources) Infectious disease carrier; Translations: [Carrier of infectious disease, unspecified] 10-11-2023 Episodic Occlusion or stenosis of precerebral arteries (16 sources) Occlusion and stenosis of bilateral carotid arteries; Translations: [Occlusion and stenosis of unspecified carotid artery] Onset: 3 Chronic Osteoarthritis (20 sources) Osteoarthritis; Translations: [Osteoarthrosis, unspecified whether generalized or localized, unspecified site] Onset: 2 01-12-2023 Chronic Other acquired deformities (2 sources) Acquired spondylolisthesis; Translations: [Spondylolisthesis, cervical region] Episodic Other aftercare (3 sources) Taking high risk medication; Translations: [Other geochemist (current) drug therapy] 08-09-2024 Episodic Other and unspecified benign neoplasm (13 sources) History of polyp of colon; Translations: [Personal history of colonic polyps] Onset: 3 Episodic Other circulatory disease (6 sources) Disorder of carotid artery; Translations: [Disorder of arteries and arterioles, unspecified] Onset: 5 07-17-2024 Chronic Other connective tissue disease (2 sources) Other symptoms and signs involving the nervous system Episodic Other connective tissue disease (8 sources) Trochanteric bursitis of left hip; Translations: [Trochanteric bursitis, left hip] 10-06-2024 Episodic Other ear and sense organ disorders (12 sources) Sensorineural hearing loss, bilateral; Translations: [Sensorineural hearing loss, bilateral] Onset: 3 01-12-2023 Chronic Other gastrointestinal disorders (13 sources) Altered bowel function; Translations: [Change in bowel habit] Onset: 3 Episodic Other lower respiratory disease (1 source) Other forms of dyspnea; Translations: [OTHER FORMS OF DYSPNEA] Onset: 3 Episodic Other male genital disorders (5 sources) Secondary erectile dysfunction; Translations: [Erectile dysfunction following radical prostatectomy] Onset: 2 Chronic Other male genital disorders (20 sources) Erectile dysfunction following radical prostatectomy; Translations: [Erectile dysfunction following radical prostatectomy] Onset: 3 07-07-2019 Chronic Other nervous system disorders (4 sources) Neuralgia/neuritis - ankle/foot; Translations: [Unspecified mononeuropathy of left lower limb] Chronic Other nervous system disorders (16 sources) Chronic pain; Translations: [Other chronic pain] Onset: 3 01-12-2023 Chronic Other nervous system disorders (2 sources) Other chronic pain Chronic Other non-traumatic joint disorders (10 sources) Hip pain; Translations: [Pain in left hip] 10-06-2024 Episodic Peripheral and visceral atherosclerosis (1 source) Peripheral vascular disease, unspecified; Translations: [PERIPHERAL VASCULAR DISEASE UNS] Onset: 3 Chronic Pneumonia (except that caused by tuberculosis or sexually transmitted disease) (1 source) Pneumonia, unspecified organism; Translations: [PNEUMONIA UNSPECIFIED ORGANISM] Onset: 3 Episodic Septicemia (except in labor) (1 source) Sepsis, unspecified organism; Translations: [SEPSIS UNSPECIFIED ORGANISM] Onset: 3 Episodic Spondylosis; intervertebral disc disorders; other back problems (20 sources) Degeneration of cervical intervertebral disc; Translations: [Other cervical disc degeneration, unspecified cervical region] Onset: 3 Chronic Unclassified (3 sources) LOW BACK PAIN, UNSPECIFIED; Translations: [LOW BACK PAIN, UNSPECIFIED] Onset: 3 Unclassified (2 sources) COUGH, UNSPECIFIED; Translations: [COUGH, UNSPECIFIED] Onset: 3 Unclassified (1 source) CONTACT W/AND (SUSP) EXPOS COVID-19; Translations: [CONTACT W/AND (SUSP) EXPOS COVID-19] Onset: 3 Unclassified (12 sources) Body mass index 20-24 - normal 02-10-2023 Past or Other Problems Problem Classification Problem Date Documented Da te Episodic/Chronic Abdominal hernia (20 sources) Umbilical hernia; Translations: [Umbilical hernia without obstruction or gangrene] Onset: 01-12-2023 06-08-2017 Episodic Calculus of urinary tract (20 sources) History of calculus of kidney; Translations: [Personal history of urinary calculi] Onset: 11-04-2021 Episodic Cancer of bladder (19 sources) Personal history of malignant neoplasm of bladder; Translations: [History of malignant neoplasm of bladder] Onset: 08-19-2022 Episodic Cancer of prostate (20 sources) Personal history of malignant neoplasm of prostate; Translations: [History of malignant neoplasm of prostate] Onset: 11-04-2021 Episodic E Codes: Fall (1 source) Fall on same level from slipping, tripping and stumbling with subsequent striking against other object, initial encounter; Translations: [FALL SAME LVL SLIP STRK OTH OBJ INT] Onset: 04-20-2022 Episodic Nonspecific chest pain (15 sources) Chest discomfort; Translations: [Other chest pain] Onset: 07-17-2024 07-17-2024 Episodic Other acquired deformities (20 sources) Spondylolisthesis; Translations: [Spondylolisthesis, cervical region] Onset: 01-12-2023 04-19-2020 Episodic Comment on above: Problem List clean-u p per request of Phys. EHR Cmte Other aftercare (3 sources) Other chcf (current) drug therapy; Translations: [OTH INSURANCE SERVICE REPRESENTATIVE CURRENT DRUG THERAPY] Onset: 10-12-2022 Episodic Other aftercare (11 sources) Treatment changed; Translations: [Other chcf (current) drug therapy] Onset: 05-08-2024 05-08-2024 Episodic Other circulatory disease (20 sources) Ecchymosis; Translations: [Hemorrhage, not elsewhere classified] Onset: 01-12-2023 05-06-2017 Episodic Comment on above: left leg [...] SPEC SX SIGNS INVLV CIRC RS] Onset: 10-28-2022 Episodic Other circulatory disease (13 sources) Unequal blood pressure in arms; Translations: [Other specified symptoms and signs involving the circulatory and respiratory systems] Onset: 05-08-2024 05-08-2024 Episodic Other circulatory disease (11 sources) Carotid bruit; Translations: [Other specified symptoms and signs involving the circulatory and respiratory systems] Onset: 05-08-2024 05-08-2024 Episodic Other connective tissue disease (20 sources) Impingement syndrome of shoulder region; Translations: [Impingement syndrome of unspecified shoulder] Onset: 01-12-2023 05-06-2017 Episodic Other ear and sense organ disorders (12 sources) Bilateral tinnitus; Translations: [Tinnitus, bilateral] Onset: 01-12-2023 01-12-2023 Episodic Other fractures (4 sources) Multiple fractures of ribs, right side, initial encounter for closed fracture; Translations: [MX FX RIBS RT SIDE INITIAL CLOS FX] Onset: 05-25-2022 Episodic Other injuries and conditions due to external causes (3 sources) Unspecified injury of thorax, initial encounter; Translations: [UNSPECIFIED INJURY THORAX INITIAL] Onset: 04-18-2022 Episodic Other injuries and conditions due to external causes (10 sources) H/O: fracture; Translations: [Personal history of (healed) traumatic fracture] Onset: 05-08-2024 05-08-2024 Episodic Other injuries and conditions due to external causes (2 sources) Personal history of (healed) traumatic fracture; Translations: [Personal history of (healed) traumatic fracture] Onset: 05-08-2024 Episodic Other lower respiratory disease (20 sources) Dyspnea; Translations: [Shortness of breath] Onset: 05-08-2024 05-08-2024 Episodic Other lower respiratory disease (3 sources) Shortness of breath; Translations: [Shortness of breath] Onset: 05-08-2024 Episodic Other nervous system disorders (14 sources) Paresthesia; Translations: [Paresthesia of skin] Onset: 01-12-2023 01-12-2023 Episodic Other non-traumatic joint disorders (4 sources) Pain in right knee; Translations: [PAIN IN RIGHT KNEE] Onset: 06-30-2022 Episodic Other nutritional; endocrine; and metabolic disorders (11 sources) Overweight in adulthood with body mass index of 25 or more but less than 30; Translations: [Body mass index (BMI) 25.0-25.9, adult] Onset: 05-08-2024 05-08-2024 Episodic Other nutritional; endocrine; and metabolic disorders (2 sources) Body mass index (BMI) 26.0-26.9, adult; Translations: [Body mass index (BMI) 26.0-26.9, adult] Onset: 07-17-2024 Episodic Other nutritional; endocrine; and metabolic disorders (2 sources) Body mass index (BMI) 25.0-25.9, adult; Translations: [Body mass index (BMI) 25.0-25.9, adult] Onset: 05-08-2024 Episodic Screening and history of mental health and substance abuse codes (19 sources) Personal history of nicotine dependence; Translations: [Ex-smoker] Onset: 10-12-2022 05-08-2024 Episodic Spondylosis; intervertebral disc disorders; other back problems (20 sources) Chronic low back pain; Translations: [Low back pain, unspecified] Onset: 08-12-2023 08-12-2023 Episodic Unclassified (3 sources) Low back pain, unspecified M54.50 Unclassified (1 source) LOW BACK PAIN, UNSPECIFIED; Translations: [LOW BACK PAIN, UNSPECIFIED] Onset: 10-23-2022 Unclassified (1 source) COUGH, UNSPECIFIED; Translations: [COUGH, UNSPECIFIED] Onset: 10-05-2022 Unclassified (9 sources) Onset: 05-08-2024 05-08-2024 Urinary tract infections (4 sources) Urinary tract infection, site not specified; Translations: [UTI SITE NOT SPECIFIED] Onset: 03-12-2022 Episodic Results Test Name Value Interpretation Reference Range Facility Urology Office/Clinic Noteon 01-15-2025 Urology Office/Clinic Note Urology Office/Clinic Note Chief Complaint BCG HPI Staff 74 year old male here for # 3 of 3 BCG treatment for bladder cancer Previous DX: bladder cancer Review of Systems PHQ Score Initial Depression Screen Score: 0 SCORE No fever, chills, malaise, myalgia. No abdominal pain, nausea, vomiting. No dysuria, blood in urine. No change in urgency/frequency, straining, stream changes. No discharge, odor, or change in color of urine. Physical Exam Vitals & Measurements T: 36.5 ???C(Oral) HR: 80(Peripheral) RR: 16 BP: 128/82 SpO2: 98% HT: 180 cm HT: 71 in WT: 84.2 kg WT: 185.629 lb BMI: 25.99 General: nontoxic, NAD Mouth: moist mucosa Lungs: normal respiratory effort Cardio: regular rate, good distal perfusion Abdomen: nondistended Neurologic: Grossly normal Skin: No rashes or suspicious lesions Assessment/Plan 1. Bladder cancer (C67.9: Malignant neoplasm of bladder, unspecified) Original TURBT 10/29/21 - Non-invasive, low grade TCC. TURBT 02/17/22 - Path was sent to [facility] for second opinion, 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 Mitomycin 03/26/22 and 04/20/22. TURBT 01/14/23 - Neg. Chronic inflammation and extensive necrosis. 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 [1] Saw Dr. Norberto Andrade 07/19/24 at [facility], recommended BCG #6 to start 2wks later. BCG #6 complete 09/13/[address] [facility] AP/Chest scan 09/01/24 [facility]. Cysto 10/24/24 shows no bladder lesions. Cyto/FISH negative. TODAY: Pt here for BCG #3 of 3. IO UA trace leuk only. Asx. Tolerated BCG well. Return in 1-2 mos for next scope. The patient was placed in the appropriate position and under sterile conditions, the urethra is catheterized with a 14 Fr Coude catheter and the bladder is emptied. 50 cc of sterile 0.9 NS with one full vial of TANISHA BCG was placed into the bladder and the straight catheter was removed. The patient will hold the solution in the bladder for two hours, turning every fifteen minutes 1/4 turn to allow coating of the bladder surface. The patient should call the office or present to the Emergency Department for development of fever, chills, or flu-like symptoms. Symptoms such as urinary frequency, urgency, and other bladder irritation symptoms are expected. Follow-up With When Contact Information [facility] Additional Instructions: For procedure as scheduled. Patient Education Bladder Cancer Problem List/Past Medical History Ongoing Acute gouty [...] Arthroscopy of knee, Cervical vertebral fusion. Medications acetaminophen-hydrocodone 325 mg-5 mg oral tablet, 1 tab(s) Colcrys 0.6 mg oral tablet, 0.6 mg= 1 tab(s), Oral, Daily, PRN diclofenac sodium 75 mg Oral EC Tab, 75 mg= 1 tab(s), Oral, BID doxazosin 1 mg Tab, 1 mg= 1 tab(s) hydrochlorothiazide-lisino pril 12.5 mg-20 mg Tab, 1 tab(s) liothyronine 25 mcg Tab lisinopril 20 mg Tab, 20 mg= 1 tab(s) Pantoprazole [address] Tab, 40 mg= 1 tab(s), Oral, Daily sildenafil 100 mg Tab, 100 mg= 1 tab(s), Oral, As Directed, 3 refills Trelegy Ellipta 100 mcg-62.5 mcg-25 mcg inhalation powder, 1 puff(s), Inhalation, Daily Allergies codeine (hives/rashes) Social History Alcohol - Low Risk, 05/06/2017 Current. Beer. 1-2 times per week., 11/28/2024 Substance Abuse - Denies Substance Abuse, 08/22/2014 Never., 11/28/2024 Tobacco - Denies Tobacco Use, 08/22/2014 Former smoker, quit more than 30 days ago Tobacco Use:. Never Smokeless Tobacco Use:. Cigarettes, Yes, 12/05/2024 Family History Depression: Sister. Diabetes mellitus type 2: Father. Hypertension: Father. Immunizations Vaccine Da (more content not included)... Normal [facility] Comment on above: Result Comment: Elec tronically Signed By: LAUREN CROOK PA-[email or web address]\Date and Time Signed: 01/15/25 09:25 EDT Reminderson 12-28-2024 Reminders Reminders From: Loretta Simons To: EU - Recalls Whitney; Sent: 08/17/2024 11:54:59 EST Show up: 11/19/2024 11:54:00 EDT Subject: cysto/fish/cytol Due Date/Time: 12/11/2024 11:54:00 EDT Reminder/Recall Patient is due in January 2025 for 3 month cysto/fish./cytol, bt ck Patient sched 02/26/25 in [place] office. Normal [facility] CBC W Auto Differential pane l (Bld)on 12-13-2024 Basophils (Bld) [#/Vol] [facility] Basophils/100 WBC (Bld) 0.2 % [facility] Differential cell count method Nom (Bld) Auto [facility] Eosinophils (Bld) [#/Vol] 0.09 10*3/uL [facility] Eosinophils/100 WBC (Bld) 1.1 % [facility] Erythrocyte distribution width (RBC) [Ratio] 14.1 % 11.5 - 15.0 % [facility] Hematocrit (Bld) [Volume fraction] 38 % Low 39.0 - 51.0 % [facility] Hemoglobin (Bld) [Mass/Vol] 12.7 g/dL Low 13.0 - 17.0 g/dL [facility] Immature granulocytes (Bld) [#/Vol] 0.05 10*3/uL [facility] Immature granulocytes/100 WBC (Bld) 0.6 % [facility] Interpretation and review of laboratory results Abnormal [facility] Lymphocytes (Bld) [#/Vol] 2.14 10*3/uL [facility] Lymphocytes/100 WBC (Bld) 25.4 % [facility] MCH (RBC) [Entitic mass] 30.5 pg 26.0 - 34.0 pg [facility] MCHC (RBC) [Mass/Vol] 33.4 g/dL 30.5 - 36.0 g/dL [facility] MCV (RBC) [Entitic vol] 91.3 fL 80.0 - 100.0 fL [facility] Monocytes (Bld) [#/Vol] 0.68 10*3/uL [facility] Monocytes/100 WBC (Bld) 8.1 % [facility] Neutrophils (Bld) [#/Vol] 5.44 10*3/uL [facility] Neutrophils/100 WBC (Bld) 64.6 % [facility] Nucleated RBC (Bld) [#/Vol] NINF [facility] Nucleated RBC/100 WBC (Bld) [Ratio] 0 % /100 WBC [facility] Platelet mean volume (Bld) [Entitic vol] 9 fL 9.0 - 12.7 fL [facility] Platelets (Bld) [#/Vol] 257 10*3/uL [facility] RBC (Bld) [#/Vol] 4.16 10*6/uL Low 4.20 - 6.00 m/uL [facility] WBC (Bld) [#/Vol] 8.42 10*3/uL [facility] Basophils (Bld) [#/Vol] 10*3/uL Normal <0.11 [facility] Comment on above: Order Comment: Speci men Type: BLOOD SPECIMENOrdering Facility: [facility] Address: [address] [place] [address] Performed By: #### 5 7021-8 ####[facility] LABCLIA [id number] [place] [address] Basophils/100 WBC (Bld) 0.2 % Normal [facility] Comment on above: Order Comment: Speci men Type: BLOOD SPECIMENOrdering Facility: [facility] Address: [address] [place] [address] Performed By: #### 5 7021-8 ####[facility] LABCLIA [id number] [place] [address] Differential cell count method Nom (Bld) Auto Normal [facility] Comment on above: Order Comment: Speci men Type: BLOOD SPECIMENOrdering Facility: [facility] Address: [address] [place] [address] Performed By: #### 5 7021-8 ####[facility] LABCLIA [id number] [place] [address] Eosinophils (Bld) [#/Vol] 0.09 10*3/uL Normal <0.46 [facility] Comment on above: Order Comment: Speci men Type: BLOOD SPECIMENOrdering Facility: [facility] Address: [address] [place] [address] Performed By: #### 5 7021-8 ####[facility] LABCLIA [id number] [place] [address] Eosinophils/100 WBC (Bld) 1.1 % Normal [facility] Comment on above: Order Comment: Speci men Type: BLOOD SPECIMENOrdering Facility: [facility] Address: [address] [place] [address] Performed By: #### 5 7021-8 ####[facility] LABCLIA [id number] [place] [address] Erythrocyte distribution width (RBC) [Ratio] 14.1 % Normal 11.5-15.0 [facility] Comment on above: Order Comment: Speci men Type: BLOOD SPECIMENOrdering Facility: [facility] Address: [address] [place] [address] Performed By: #### 5 7021-8 ####[facility] LABCLIA [id number] [place] [address] Hematocrit (Bld) [Volume fraction] 38.0 % Low 39.0-51.0 [facility] Comment on above: Order Comment: Speci men Type: BLOOD SPECIMENOrdering Facility: [facility] Address: [address] [place] [address] Performed By: #### 5 7021-8 ####[facility] LABCLIA [id number] [place] [address] Hemoglobin (Bld) [Mass/Vol] 12.7 g/dL Low 13.0-17.0 [facility] Comment on above: Order Comment: Speci men Type: BLOOD SPECIMENOrdering Facility: [facility] Address: [address] [place] [address] Performed By: #### 5 7021-8 ####[facility] LABCLIA [id number] [place] [address] Immature granulocytes (Bld) [#/Vol] 0.05 10*3/uL Normal <0.10 [facility] Comment on above: Order Comment: Speci men Type: BLOOD SPECIMENOrdering Facility: [facility] Address: [address] [place] [address] Performed By: #### 5 7021-8 ####[facility] LABCLIA [id number] [place] [address] Immature granulocytes/100 WBC (Bld) 0.6 % Normal [facility] Comment on above: Order Comment: Speci men Type: BLOOD SPECIMENOrdering Facility: [facility] Address: [address] [place] [address] Performed By: #### 5 7021-8 ####[facility] LABCLIA [id number] [place] [address] Lymphocytes (Bld) [#/Vol] 2.14 10*3/uL Normal 1.00-4.00 [facility] Comment on above: Order Comment: Speci men Type: BLOOD SPECIMENOrdering Facility: [facility] Address: [address] [place] [address] Performed By: #### 5 7021-8 ####[facility] LABCLIA [id number] [place] [address] Lymphocytes/100 WBC (Bld) 25.4 % Normal [facility] Comment on above: Order Comment: Speci men Type: BLOOD SPECIMENOrdering Facility: [facility] Address: [address] [place] [address] Performed By: #### 5 7021-8 ####[facility] LABCLIA [id number] [place] [address] MCH (RBC) [Entitic mass] 30.5 pg Normal 26.0-34.0 [facility] Comment on above: Order Comment: Speci men Type: BLOOD SPECIMENOrdering Facility: [facility] Address: [address] [place] [address] Performed By: #### 5 7021-8 ####[facility] LABCLIA [id number] [place] [address] MCHC (RBC) [Mass/Vol] 33.4 g/dL Normal 30.5-36.0 [facility] Comment on above: Order Comment: Speci men Type: BLOOD SPECIMENOrdering Facility: [facility] Address: [address] [place] [address] Performed By: #### 5 7021-8 ####[facility] LABCLIA [id number] [place] [address] MCV (RBC) [Entitic vol] 91.3 fL Normal 80.0-100.0 [facility] Comment on above: Order Comment: Speci men Type: BLOOD SPECIMENOrdering Facility: [facility] Address: [address] [place] [address] Performed By: #### 5 7021-8 ####[facility] LABCLIA [id number] [place] [address] Monocytes (Bld) [#/Vol] 0.68 10*3/uL Normal <0.87 [facility] Comment on above: Order Comment: Speci men Type: BLOOD SPECIMENOrdering Facility: [facility] Address: [address] [place] [address] Performed By: #### 5 7021-8 ####[facility] LABCLIA [id number] [place] [address] Monocytes/100 WBC (Bld) 8.1 % Normal [facility] Comment on above: Order Comment: Speci men Type: BLOOD SPECIMENOrdering Facility: [facility] Address: [address] [place] [address] Performed By: #### 5 7021-8 ####[facility] LABCLIA [id number] [place] [address] Neutrophils (Bld) [#/Vol] 5.44 10*3/uL Normal 1.45-7.50 [facility] Comment on above: Order Comment: Speci men Type: BLOOD SPECIMENOrdering Facility: [facility] Address: [address] [place] [address] Performed By: #### 5 7021-8 ####[facility] LABCLIA [id number] [place] [address] Neutrophils/100 WBC (Bld) 64.6 % Normal [facility] Comment on above: Order Comment: Speci men Type: BLOOD SPECIMENOrdering Facility: [facility] Address: [address] [place] [address] Performed By: #### 5 7021-8 ####[facility] LABCLIA [id number] [place] [address] Nucleated RBC (Bld) [#/Vol] 10*3/uL Normal <0.01 [facility] Comment on above: Order Comment: Speci men Type: BLOOD SPECIMENOrdering Facility: [facility] Address: [address] [place] [address] Performed By: #### 5 7021-8 ####[facility] LABCLIA [id number] [place] [address] Nucleated RBC/100 WBC (Bld) [Ratio] 0.0 /100 WBC Normal [facility] Comment on above: Order Comment: Speci men Type: BLOOD SPECIMENOrdering Facility: [facility] Address: [address] [place] [address] Performed By: #### 5 7021-8 ####[facility] LABCLIA [id number] [place] [address] Platelet mean volume (Bld) [Entitic vol] 9.0 fL Normal 9.0-12.7 [facility] Comment on above: Order Comment: Speci men Type: BLOOD SPECIMENOrdering Facility: [facility] Address: [address] [place] [address] Performed By: #### 5 7021-8 ####[facility] LABIA [id number] [place] [address] Platelets (Bld) [#/Vol] 257 10*3/uL Normal 150-400 [facility] Comment on above: Order Comment: Speci men Type: BLOOD SPECIMENOrdering Facility: [facility] Address: [address] [place] [address] Performed By: #### 5 7021-8 ####[facility] LABIA [id number] [place] [address] RBC (Bld) [#/Vol] 4.16 10*6/uL Low 4.20-6.00 [facility] Comment on above: Order Comment: Speci men Type: BLOOD SPECIMENOrdering Facility: [facility] Address: [address] [place] [address] Performed By: #### 5 7021-8 ####[facility] [id number] [place] [address] WBC (Bld) [#/Vol] 8.42 10*3/uL Normal 3.70-11.00 [facility] Comment on above: Order Comment: Speci men Type: BLOOD SPECIMENOrdering Facility: [facility] Address: [address] [place] [address] Performed By: #### 5 7021-8 ####[facility] [id number] [place] [address] CNOVSPon 12-13-2024 CNOVS Visit (SP) Office (H EMASA) -- MARY DIAZ ([id number]) 1950 M [facility] Date Time Provider Department 12/13/24 1:00 PM NORBERTO ANDRADE During your visit today, we recorded the following information about you: Temperature Pulse Respiration Blood pressure 97.7 degrees 74/minute 18/minute 135/80 Weight 84.4 kg Norberto Andrade MD 12/13/2024 2:20 PM Signed PATIENT NAME: Mary Diaz CLINIC NO.: [id number] ATTENDING PHYSICIAN: Norberto Andrade MD DATE OF SERVICE: 12/13/[address] Lionel Whitney [address] [facility] [address] thank you for referring Mary Diaz for an opinion regarding non muscle invasive bladder cancer. Some of the elements of this note have been copied from my previous progress note dated 09/13/24. All the information has been reviewed carefully. 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 Urology recommended induction BCG x 6 treatments. H/o prostate cancer s/p radical prostatectomy in 08/2014. No smoking Occasional alcohol Doing well No major complaints. 08/02/24: - Doing well - No major complaints - C/o left hip pain - Doing intraarticular steroid injection next week on Wednesday. 08/16/24: - Doing well - No major complaints - C/o easy bruising 09/13/24: - Week 6 BCG today - Doing well - No major complaints. - Scheduled for cystoscopy in October 2024. - CT scans unremarkable. 12/13/24: - Doing well - No major complaints - Had cystoscopy in September 2024. - Pt completed maintenance BCG treatments weekly x 3. Finished yesterday. Current Outpatient Medications Medication Sig tiZANidine (ZANAFLEX) 4 mg tablet Take 4 mg by mouth every 6 hours as needed. aspirin 81 mg chewable tablet Take 81 mg by mouth every 48 hours. rosuvastatin (CRESTOR) 20 mg tablet Take 20 mg by mouth. Fluorouracil 5 % cream Apply to directed areas on the forearms and backs of hands twice a day x 14 days. Dispense 30 day supply but only use for 14 days. HYDROcodone-acetaminophen (NORCO) 5-325 mg per tablet Take 1 tablet by mouth at bedtime as needed. hynqceasaku-vemlfzzix-gijt nter (TRELEGY ELLIPTA) 100-62.5-25 mcg inhalation powder = 1 puff(s), Inhalation, Daily, Refills(s) 0 iv contrast (will be provided with radiology test) CT Chest ABD/PEL-Inject, intravenously, [...] in the CT contrast administration guidelines link. enteric contrast (will be provided with radiology test) For CT CHESTABD/PEL W IVCON Routine order Administer, As Directed One Time Only, via Oral, Rectal, both Oral and Rectal, Enteric Tube, Stoma or Indwelling Catheter, Enteric Contrast as designated per enteric contrast guidelines doxazosin (CARDURA) 1 mg tablet Take 1 mg by mouth. mv-min/folic/K1/lycopen/ana tein (MEN 50 PLUS MULTIVITAMIN ORAL) Take 1 tablet by mouth once daily. lisinopril (ZESTRIL) 20 mg tablet Take 20 mg by mouth once daily. lisinopril-hydroCHLOROthia zide (ZESTORETIC) 20-12.5 mg per tablet Take 1 [...] Take 100 mg by mouth as needed. obtxqedpekh-nprafmsny-kcfe nter (TRELEGY ELLIPTA) 100-62.5-25 mcg inhalation powder Inhale [...] bladder tumor x4 PAST SURGICAL HISTORY OF Cystourethrosco (more content not included)... Normal [facility] Comprehensive metabolic 2000 panelOrdered By: Jules Almaraz on 12-13-2024 Albumin [Mass/Vol] 4.5 g/dL 3.9 - 4.9 g/dL [facility] ALP [Catalytic activity/Vol] 56 U/L 38 - 113 U/L [facility] ALT [Catalytic activity/Vol] 16 U/L 10 - 54 U/L [facility] Anion gap [Moles/Vol] 10 mmol/L 8 - 15 mmol/L [facility] AST [Catalytic activity/Vol] 16 U/L 14 - 40 U/L [facility] Bilirubin [Mass/Vol] 0.4 mg/dL 0.2 - 1 .3 mg/dL [facility] Calcium [Mass/Vol] 10.2 mg/dL 8.5 - 10. 2 mg/dL [facility] Chloride [Moles/Vol] 97 mmol/L Low 98 - 10 7 mmol/L [facility] CO2 [Moles/Vol] 26 mmol/L 22 - 30 mmol/L [facility] Creatinine [Mass/Vol] 1.27 mg/dL High 0.73 - 1.22 mg/dL [facility] GFR/1.73 sq M.predicted among non-blacks MDRD (S/P/Bld) [Vol rate/Area] 60 mL/min/{1.73_m2} - PINF [facility] Comment on above: Estimated Glomerular Filtration Rate (eGFR) is calculated using the 2020 CKD-EPI creatinine equation. This equation utilizes serum creatinine, sex, and age as parameters. The creatinine assay has traceable calibration to isotope dilution-mass spectrometry. Refer to KDIGO guidelines for clinical interpretation. In patients with unstable renal function, e.g. those with acute kidney injury, the eGFR may not accurately reflect actual GFR. Glucose [Mass/Vol] 93 mg/dL 74 - 99 mg/dL [facility] Comment on above: The [place] Diabete s Association (ADA) provides guidance for cutoff values [...] Standards of Medical Care in Diabetes 2016, [place] Diabetes Association. Diabetes Care. 2016.39(Suppl 1). Interpretation and review of laboratory results Abnormal [facility] Potassium [Moles/Vol] 4 mmol/L 3.7 - 5.1 mmol/L [facility] Protein [Mass/Vol] 7 g/dL 6.3 - 8.0 g/dL [facility] Sodium [Moles/Vol] 133 mmol/L Low 136 - 144 mmol/L [facility] Urea nitrogen [Mass/Vol] 16 mg/dL 9 - 24 mg/dL [facility] Comprehensive metabolic 2000 panelon 12-13-2024 Albumin [Mass/Vol] 4.5 g/dL Normal 3.9-4.9 [facility] Comment on above: Order Comment: Speci men Type: BLOOD SPECIMENOrdering Facility: [facility] Address: [address] [place] [address] Performed By: #### 2 4323-8 ####[facility] LABCLIA [id number] [place] [address] ALP [Catalytic activity/Vol] 56 U/L Normal 38-113 [facility] Comment on above: Order Comment: Speci men Type: BLOOD SPECIMENOrdering Facility: [facility] Address: [address] [place] [address] Performed By: #### 2 4323-8 ####[facility] LABCLIA [id number] [place] [address] ALT [Catalytic activity/Vol] 16 U/L Normal 10-54 [facility] Comment on above: Order Comment: Speci men Type: BLOOD SPECIMENOrdering Facility: [facility] Address: [address] [place] [address] Performed By: #### 2 4323-8 ####[facility] LABCLIA [id number] [place] [address] Anion gap [Moles/Vol] 10 mmol/L Normal 8-15 [facility] Comment on above: Order Comment: Speci men Type: BLOOD SPECIMENOrdering Facility: [facility] Address: [address] [place] [address] Performed By: #### 2 4323-8 ####[facility] LABCLIA [id number] [place] [address] AST [Catalytic activity/Vol] 16 U/L Normal 14-40 [facility] Comment on above: Order Comment: Speci men Type: BLOOD SPECIMENOrdering Facility: [facility] Address: [address] [place] [address] Performed By: #### 2 4323-8 ####[facility] LABCLIA [id number] [place] [address] Bilirubin [Mass/Vol] 0.4 mg/dL Normal 0.2-1.3 [facility] Comment on above: Order Comment: Speci men Type: BLOOD SPECIMENOrdering Facility: [facility] Address: [address] [place] [address] Performed By: #### 2 4323-8 ####[facility] LABCLIA [id number] [place] [address] Calcium [Mass/Vol] 10.2 mg/dL Normal 8.5-10.2 [facility] Comment on above: Order Comment: Speci men Type: BLOOD SPECIMENOrdering Facility: [facility] Address: [address] [place] [address] Performed By: #### 2 4323-8 ####[facility] LABCLIA [id number] [place] [address] Chloride [Moles/Vol] 97 mmol/L Low 98-107 [facility] Comment on above: Order Comment: Speci men Type: BLOOD SPECIMENOrdering Facility: [facility] Address: [address] [place] [address] Performed By: #### 2 4323-8 ####[facility] LABCLIA [id number] [place] [address] CO2 [Moles/Vol] 26 mmol/L Normal 22-30 [facility] Comment on above: Order Comment: Speci men Type: BLOOD SPECIMENOrdering Facility: [facility] Address: [address] [place] [address] Performed By: #### 2 4323-8 ####[facility] LABCLIA [id number] [place] [address] Creatinine [Mass/Vol] 1.27 mg/dL High 0.73-1.22 [facility] Comment on above: Order Comment: Speci men Type: BLOOD SPECIMENOrdering Facility: [facility] Address: [address] [place] [address] Performed By: #### 2 4323-8 ####[facility] LABCLIA [id number] [place] [address] Creatinine and Glomerular filtration rate.predicted panel (S/P/Bld) 60 mL/min/1.73m??? Normal >=60 [facility] Comment on above: Order Comment: Speci men Type: BLOOD SPECIMENOrdering Facility: [facility] Address: [address] [place] [address] Result Comment: Emely mated Glomerular Filtration Rate [...] actual GFR. Performed By: #### 2 4323-8 ####[facility] LABCLIA [id number] [place] [address] Glucose [Mass/Vol] 93 mg/dL Normal 74-99 [facility] Comment on above: Order Comment: Speci men Type: BLOOD SPECIMENOrdering Facility: [facility] Address: [address] [place] [address] Result Comment: The [place] Diabetes Association (ADA) provides guidance for cutoff [...] Standards of Medical Care in Diabetes 2016, [place] Diabetes Association. Diabetes Care. 2016.39(Suppl 1). Performed By: #### 2 4323-8 ####[facility] LABCLIA [id number] [place] [address] Potassium [Moles/Vol] 4.0 mmol/L Normal 3.7-5.1 [facility] Comment on above: Order Comment: Speci men Type: BLOOD SPECIMENOrdering Facility: [facility] Address: [address] [place], [place] [address] Performed By: #### 2 4323-8 ####[facility] LABCLIA [id number] [place] [address] Protein [Mass/Vol] 7.0 g/dL Normal 6.3-8.0 [facility] Comment on above: Order Comment: Speci men Type: BLOOD SPECIMENOrdering Facility: [facility] Address: [address] [place], [place] [address] Performed By: #### 2 4323-8 ####[facility] LABCLIA [id number] [place] [address] Sodium [Moles/Vol] 133 mmol/L Low 136-144 [facility] Comment on above: Order Comment: Speci men Type: BLOOD SPECIMENOrdering Facility: [facility] Address: [address] [place] [address] Performed By: #### 2 4323-8 ####[facility] LABCLIA [id number] [place] [address] Urea nitrogen [Mass/Vol] 16 mg/dL Normal 9-24 [facility] Comment on above: Order Comment: Speci men Type: BLOOD SPECIMENOrdering Facility: [facility] Address: [address] [place] [address] Performed By: #### 2 4323-8 ####[facility] LABCLIA [id number] [place] [address] Ferritin SerPl-mCncon 2024 Ferritin [Mass/Vol] 114.0 ng/mL Normal 30.3-565.7 [facility] Comment on above: Order Comment: Speci men Type: BLOOD SPECIMENOrdering Facility: [facility] Address: [address] [place] [address] Performed By: #### 5 0190-8, 2132-9, 2276-4, 2284-8 ####[facility] LABCLIA [id number] [place] [address] [place] Folate SerPl-mCncon 12-14-19 25 Folate [Mass/Vol] ng/mL Normal >4.7 [facility] Comment on above: Order Comment: Speci men Type: BLOOD SPECIMENOrdering Facility: [facility] Address: [address] [place] [address] Result Comment: A re sult of > 20 ng/mL is not necessarily indicative of a pathologic or treatable condition: it reflects a limitation of the test methodology. Assay reference range: 4.8 to 24.2 ng/mL. Suitable for detection of folate deficiency. Reference: Folate III (Folate III) [package insert V 1.0 [place]]. [facility], [place], [place]: April 2015. Performed By: #### 5 0190-8, 9, 2275-09, 2284-01 ####[facility] LABCLIA [id number] [place] [address] [place] Iron and Iron binding capaci ty panelon 12-13-2024 Iron [Mass/Vol] 70 ug/dL Normal 41-186 [facility] Comment on above: Order Comment: Speci men Type: BLOOD SPECIMENOrdering Facility: [facility] Address: [address] [place] [address] Performed By: #### 5 0190-8, 2132-02, 2275-09, 2284-01 ####[facility] LABIA [id number] [place] [address] [place] Iron binding capacity [Mass/Vol] 338 ug/dL Normal 232-386 [facility] Comment on above: Order Comment: Speci men Type: BLOOD SPECIMENOrdering Facility: [facility] Address: [address] [place] [address] Performed By: #### 5 0190-8, 2132-02, 2275-09, 2284-01 ####[facility] LABIA [id number] [place] [address] [place] Iron/TIBC [Molar ratio] 20.7 % Normal 15.0-57.0 [facility] Comment on above: Order Comment: Speci men Type: BLOOD SPECIMENOrdering Facility: [facility] Address: [address] [place] [address] Performed By: #### 5 0190-8, 2132-02, 2275-09, 2284-01 ####[facility] LABCLIA [id number] [place] [address] [place] Vit B12 [facility] 025 Cobalamin (Vitamin B12) [Mass/Vol] 484 pg/mL Normal 232-1245 [facility] Comment on above: Order Comment: Speci men Type: BLOOD SPECIMENOrdering Facility: [facility] Address: [address] [place] [address] Performed By: #### 5 0190-8, 2132-9, 2276-4, 2284-8 ####[facility] LABCLIA [id number] [address] OF [facility] Office Visiton 12-11-2024 Follow-up visit [id number] Beka Diaz 1950 M Date Provider Department Center 12/11/2024 ALEXANDREA WAGNER RAPHAEL Wei Family History Problem Relation Age of Onset Cerebral aneurysm Mother Dementia Father Hypertension Sister Family Status - Relation Status Age at Mother Father Sister Alive Brother Level of Service:42295 CT OFFICE/OP CONSLTJ NEW/EST PT MOD MDM 40 MINUTES Normal [facility] Ambulatory Visit Summaryon 0 12-05-2024 Ambulatory Visit Summary Ambulatory Visit Summary MARY DIAZ :1950 Visit Date:12/05/2024 Ambulatory Visit Instructions Your Diagnosis Bladder cancer Your Care Team Attending Physician - AMBREEN HELMS, LAUREN Higginbotham Primary Care Physician - Deandre Monterroso MD This Is Your Medications List acetaminophen-hydrocodone (acetaminophen-hydrocodone 325 mg-5 mg oral tablet) colchicine (Colcrys 0.6 mg oral tablet) diclofenac (diclofenac sodium 75 mg Oral EC Tab) doxazosin (doxazosin 1 mg Tab) fluticasone/umeclidinium/v ilanterol (Trelegy Ellipta 100 mcg-62.5 mcg-25 mcg inhalation powder) hydrochlorothiazide-lisino pril (hydrochlorothiazide-lisin opril 12.5 mg-20 mg Tab) liothyronine (liothyronine 25 mcg Tab) lisinopril (lisinopril 20 mg Tab) pantoprazole (Pantoprazole [address] Tab) sildenafil (sildenafil 100 mg Tab) Procedures [...] of knee, Cervical vertebral fusion. Discharge Vitals Height 180 cm Height 71 in Weight 84.2 kg Weight 185.629 lb BMI 25.99 What to do next Scheduled Follow-Up Appointments Wednesday 10:00 AM EDT With: LAUREN CROOK PA-C Where: [facility] [address] [place] [address]- Wednesday 8:30 AM EDT With: DEVONTE NOBLE, Lionel Burgos Where: [facility] [address] [place] [address]- You Need to Schedule the Following Appointments Follow Up with LAUREN CROOK PA-C, URL When: In 1 week Where: [address] [place] [address] Medications What How Much When Instructions Unchanged acetaminophen-hydrocodone (acetaminophen-hydrocodone 325 mg-5 mg oral tablet) 1 Tablets Unchanged colchicine (Colcrys 0.6 mg oral tablet) 1 Tablets By Mouth Every day as needed for Gout pain Unchanged diclofenac (diclofenac sodium 75 mg Oral EC Tab) 1 Tablets By Mouth 2 times a day Unchanged doxazosin (doxazosin 1 mg Tab) 1 Tablets Unchanged fluticasone/ umeclidinium/ vilanterol (Trelegy Ellipta 100 mcg-62.5 mcg-25 mcg inhalation powder) 1 Puffs Inhalation Every day Unchanged hydrochlorothiazide-lisino pril (hydrochlorothiazide-lisin opril 12.5 mg-20 mg Tab) 1 Tablets Unchanged liothyronine (liothyronine 25 mcg Tab) Unchanged lisinopril (lisinopril 20 mg Tab) 1 Tablets Unchanged pantoprazole (Pantoprazole [address] Tab) 1 Tablets By Mouth Every day Unchanged sildenafil (sildenafil 100 mg Tab) 1 Tablets By Mouth As Directed Take 1 tablet 1 hr prior to sexual activity as needed. Don't exceed 1 tab (100 mg) in a 24 hr period. Medications and Immunizations Administered Given Tanisha BCG Live (for intravesical use), 50 mg, IntraVesical BCG, IntraVesical Not Given BCG, Expectation Not Necessary, Duplicate order Allergies codeine (hives/rashes) Problems Ongoing - Any [...] this condition: ??? Smoking. ??? Working where the (more content not included)... Normal [facility] Urology Office/Clinic Noteon 12-05-2024 Urology Office/Clinic Note Urology Office/Clinic Note Chief Complaint #2 BCG of 3 HPI Staff BCG #2 of 3 No issues since last BCG. Review of Systems PHQ Score Initial Depression Screen Score: 0 SCORE No fever, chills, malaise, myalgia. No abdominal pain, nausea, vomiting. No dysuria, blood in urine. No change in urgency/frequency, straining, stream changes. No discharge, odor, or change in color of urine. Physical Exam Vitals & Measurements HT: 180 cm HT: 71 in WT: 84.2 kg WT: 185.629 lb BMI: 25.99 General: nontoxic, NAD Mouth: moist mucosa Lungs: normal respiratory effort Cardio: regular rate, good distal perfusion Abdomen: nondistended Neurologic: Grossly normal Skin: No rashes or suspicious lesions Assessment/Plan 1. Bladder cancer (C67.9: Malignant neoplasm of bladder, unspecified) Original TURBT 10/29/21 - Non-invasive, low grade TCC. 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 Mitomycin 03/26/22 and 04/20/22. TURBT 01/14/23 - Neg. Chronic inflammation and extensive necrosis. 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 [1] Saw Dr. Norberto Andrade 07/19/24 at [facility], recommended BCG #6 to start 2wks later. BCG #6 complete 09/13/[address] [facility] AP/Chest scan 09/01/24 [facility]. Cysto 10/24/24 shows no bladder lesions. Cyto/FISH negative. TODAY: Pt here for BCG #2 of 3. Last week was unable to place straight cath. Attempt w Coude was successful. Therefore I did not attempt straight cath today, just started directly w Coude. IO UA trace leuk only. Asx. Tolerated BCG well. Return in 1 week for #3. The patient was placed in the appropriate position and under sterile conditions, the urethra is catheterized with a 14 Fr Coude catheter and the bladder is emptied. 50 cc of sterile 0.9 NS with one full vial of TANISHA BCG was placed into the bladder and the straight catheter was removed. The patient will hold the solution in the bladder for two hours, turning every fifteen minutes 1/4 turn to allow coating of the bladder surface. The patient should call the office or present to the Emergency Department for development of fever, chills, or flu-like symptoms. Symptoms such as urinary frequency, urgency, and other bladder irritation symptoms are expected. Ordered: BCG, 50 mg, IntraVesical, Once, Stop date 12/05/24 9:56:00 EDT, Routine, Start date 12/05/24 9:56:00 EDT, 12/05/24 9:56:00 EDT Urnls Dip Stick Auto w/o Microscopy POC 47025 Orders: BCG, 50 mg, IntraVesical, Once, Stop date 12/05/24 10:26:00 EDT, Routine, Start date 12/05/24 10:26:00 EDT, 12/05/24 10:26:00 EDT Follow-up With When Contact Information LAUREN CROOK PA-C, URL In 1 week [address] [place] [address] Additional Instructions: Patient Education Bladder Cancer Problem List/Past Medical History Ongoing Acute gouty [...] Arthroscopy of knee, Cervical vertebral fusion. Medications acetaminophen-hydrocodone 325 mg-5 mg oral tablet, 1 tab(s) Colcrys 0.6 mg oral tablet, 0.6 mg= 1 tab(s), Oral, Daily, PRN diclofenac sodium 75 mg Oral EC Tab, 75 mg= 1 tab(s), Oral, BID doxazosin 1 mg Tab, 1 mg= 1 tab(s) hydrochlorothiazide-lisino pril 12.5 mg-20 mg Tab, 1 tab(s) liothyronine 25 mcg Tab lisinopril 20 mg Tab, 20 mg= 1 tab(s) Pantoprazole [address] Tab, 40 mg= 1 tab(s), Oral, Daily sildenafil 100 mg Tab, 100 mg= 1 tab(s), Oral, As Directed, 3 refills Trelegy Ellipta 100 mcg-62.5 mcg-25 mcg inhalation powder, 1 puff(s), Inhalation, Daily Allergies codeine (hives/rashes) Social History Alcohol - Low Risk, 05/06/2017 Current. Beer. 1-2 times per we (more content not included)... Normal [facility] Comment on above: Result Comment: Elec tronically Signed By: AMBREEN HELMS, LAUREN Higginbotham\.br\Date and Time Signed: 12/05/24 10:33 EDT Urology Office/Clinic Noteon 11-29-2024 Urology Office/Clinic Note Urology Office/Clinic Note Chief Complaint BCG #1 of 3 HPI Staff BCG #1 OF 3 NEEDS CONSENT SIGNED Review of Systems PHQ Score Initial Depression Screen Score: 0 SCORE No fever, chills, malaise, myalgia. No abdominal pain, nausea, vomiting. No dysuria, blood in urine. No change in urgency/frequency, straining, stream changes. No discharge, odor, or change in color of urine. Physical Exam Vitals & Measurements T: 37 ???C(Oral) HR: 100(Peripheral) RR: 16 BP: 128/84 HT: 71 in HT: 180 cm WT: 84.2 kg WT: 185.629 lb BMI: 25.99 General: nontoxic, NAD Mouth: moist mucosa Lungs: normal respiratory effort Cardio: regular rate, good distal perfusion Abdomen: nondistended Neurologic: Grossly normal Skin: No rashes or suspicious lesions Assessment/Plan 1. Bladder cancer (C67.9: Malignant neoplasm of bladder, unspecified) Original TURBT 10/29/21 - Non-invasive, low grade TCC. 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 Mitomycin 03/26/22 and 04/20/22. TURBT 01/14/23 - Neg. Chronic inflammation and extensive necrosis. 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 [1] Saw Dr. Norberto Andrade 07/19/24 at [facility], recommended BCG #6 to start 2wks later. BCG #6 complete 09/13/[address] [facility] AP/Chest scan 09/01/24 [facility]. Cysto 10/24/24 shows no bladder lesions. Cyto/FISH negative. TODAY: Pt here for BCG #1 of 3. IO UA trace leuk, trace hgb. Asx. Tolerated BCG well. Return in 1 week for #2. The patient was placed in the appropriate position and under sterile conditions, the urethra is catheterized with a 14 Fr straight catheter and the bladder is emptied. 50 cc of sterile 0.9 NS with one full vial of TANISHA BCG was placed into the bladder and the straight catheter was removed. The patient will hold the solution in the bladder for two hours, turning every fifteen minutes 1/4 turn to allow coating of the bladder surface. The patient should call the office or present to the Emergency Department for development of fever, chills, or flu-like symptoms. Symptoms such as urinary frequency, urgency, and other bladder irritation symptoms are expected. Ordered: BCG, 50 mg, IntraVesical, Once, Stop date 11/29/24 15:28:00 EDT, Routine, Start date 11/29/24 15:28:00 EDT, 11/29/24 15:28:00 EDT Follow-up With When Contact Information AMBREEN HELMS, LAUREN Higginbotham, URL In 1 week [address] [place] [address] Additional Instructions: Patient Education Bladder Cancer Problem List/Past Medical History Ongoing Acute gouty [...] Arthroscopy of knee, Cervical vertebral fusion. Medications acetaminophen-hydrocodone 325 mg-5 mg oral tablet, 1 tab(s) Colcrys 0.6 mg oral tablet, 0.6 mg= 1 tab(s), Oral, Daily, PRN diclofenac sodium 75 mg Oral EC Tab, 75 mg= 1 tab(s), Oral, BID doxazosin 1 mg Tab, 1 mg= 1 tab(s) hydrochlorothiazide-lisino pril 12.5 mg-20 mg Tab, 1 tab(s) liothyronine 25 mcg Tab lisinopril 20 mg Tab, 20 mg= 1 tab(s) Pantoprazole [address] Tab, 40 mg= 1 tab(s), Oral, Daily sildenafil 100 mg Tab, 100 mg= 1 tab(s), Oral, As Directed, 3 refills [place] BCG Live (for intravesical use), 50 mg, IntraVesical, Once Trelegy Ellipta 100 mcg-62.5 mcg-25 mcg inhalation powder, 1 puff(s), Inhalation, Daily Allergies codeine (hives/rashes) Social History Alcohol - Low Risk, 05/06/2017 Current. Beer. 1-2 times per week., 11/28/2024 Substance Abuse - Denies Substance Abuse, 08/22/2014 Never., 11/28/2024 Tobacco - Denies Tobacco Use, 08/22/2014 Former smoker, quit more than 30 days ago Tobacco Use:. Never Smokeless Tobacco Us (more content not included)... Normal [facility] Comment on above: Result Comment: Elec tronically Signed By: LAUREN CROOK PA-C\.br\Date and Time Signed: 11/29/24 15:30 EDT Ambulatory Visit Summaryon 0 11-28-2024 Ambulatory Visit Summary Ambulatory Visit Summary MARY DIAZ :1950 Visit Date:11/28/2024 Ambulatory Visit Instructions Your Diagnosis Bladder cancer Your Care Team Attending Physician - LAUREN CROOK PA-C Primary Care Physician - Deandre Monterroso MD This Is Your Medications List acetaminophen-hydrocodone (acetaminophen-hydrocodone 325 mg-5 mg oral tablet) colchicine (Colcrys 0.6 mg oral tablet) diclofenac (diclofenac sodium 75 mg Oral EC Tab) doxazosin (doxazosin 1 mg Tab) fluticasone/umeclidinium/v ilanterol (Trelegy Ellipta 100 mcg-62.5 mcg-25 mcg inhalation powder) hydrochlorothiazide-lisino pril (hydrochlorothiazide-lisin opril 12.5 mg-20 mg Tab) liothyronine (liothyronine 25 mcg Tab) lisinopril (lisinopril 20 mg Tab) pantoprazole (Pantoprazole [address] Tab) sildenafil (sildenafil 100 mg Tab) Procedures [...] of knee, Cervical vertebral fusion. Discharge Vitals Temperature (Oral) 37 ???C Heart Rate (Peripheral) 100 Respiratory Rate 16 Blood Pressure 128/84 Height 180 cm Height 71 in Weight 84.2 kg Weight 185.629 lb BMI 25.99 What to do next Scheduled Follow-Up Appointments Wednesday 10:00 AM EDT With: LAUREN CROOK PA-C Where: [facility] [address] [address]- Wednesday 10:00 AM EDT With: LAUREN CROOK PA-C Where: [facility] [address] [address]- Wednesday 8:30 AM EDT With: Lionel WHITNEY MD Where: [facility] [address] [address]- Medications What How Much When Instructions Unchanged acetaminophen-hydrocodone (acetaminophen-hydrocodone 325 mg-5 mg oral tablet) 1 Tablets Unchanged colchicine (Colcrys 0.6 mg oral tablet) 1 Tablets By Mouth Every day as needed for Gout pain Unchanged diclofenac (diclofenac sodium 75 mg Oral EC Tab) 1 Tablets By Mouth 2 times a day Unchanged doxazosin (doxazosin 1 mg Tab) 1 Tablets Unchanged fluticasone/ umeclidinium/ vilanterol (Trelegy Ellipta 100 mcg-62.5 mcg-25 mcg inhalation powder) 1 Puffs Inhalation Every day Unchanged hydrochlorothiazide-lisino pril (hydrochlorothiazide-lisin opril 12.5 mg-20 mg Tab) 1 Tablets Unchanged liothyronine (liothyronine 25 mcg Tab) Unchanged lisinopril (lisinopril 20 mg Tab) 1 Tablets Unchanged pantoprazole (Pantoprazole [address] Tab) 1 Tablets By Mouth Every day Unchanged sildenafil (sildenafil 100 mg Tab) 1 Tablets By Mouth As Directed Take 1 tablet 1 hr prior to sexual activity as needed. Don't exceed 1 tab (100 mg) in a 24 hr period. Allergies codeine (hives/rashes) Problems Ongoing - Any [...] you for choosing us for your care. Normal [facility] MR HIP LEFT WO IV CONTRASTon 11-09-2024 MR HIP LEFT WO IV CONTRAST EXAMINATION/TECHNIQUE: MR HIP LEFT WO IV CONTRAST [...] bursitis. ELECTRONICALLY SIGNED BY: Toribio Sheets MD Normal Not Available Comment on above: Order Comment: PLEAS E CALL PT TO SCHEDULE Main OR Preoperative Recordo n 10-31-2024 Main OR Preoperative Record Main OR Preoperative Record Holding Area Document Type FTURO Summary Primary Physician: Lionel WHITNEY MD Finalized Date/Time: 10/31/24 16:29:26 Pt. Name: EMILYMARY D.O.B./Sex: 1950 Male Med Rec #: [id number] Physician: Lionel WHITNEY MD Financial #: [id number] Pt. Type: O Room/Bed: / Admit/Disch: 10/24/24 09:20:44 - 10/24/24 23:59:59 Institution: Case Times Holding FTURO Pre-Care Text: Verifies consent for planned procedure, identifies individual values and wishes concerning care, includes family members in perioperative teaching Secures patient's records' belongings, and valuables, maintains patient's dignity and privacy, and maintains patient confidentiality Entry 1 In Holding 10/24/24 09:35:00 Outcomes Met? Yes Last Modified By: Fitz ZELAYA, Frances Bellamy 10/24/24 09:35:41 Post-Care Text: The patient participates in decisions affecting his or her perioperative plan of care The patient's right to privacy is maintained Surgery Checklist FTURO Entry 1 Patient Birthday, ID Band Procedure History and Physical, Identification: Check, Patient Verification: Surgical Consent, With Participation Patient NPO after Midnight: n/a Date/Time: 10/24/24 09:35:00 Personal Items: Dentures, Glasses Complaints of Pain: n/a Skin Integrity Unable to Visualize Vitals - EU Blood Pressure 123/75 Pulse 91 bpm Respirations 18 br/min SPO2 95 % Additional FISH Specimens Comment need aditional specimen Specimens Collected RN Reviewed Yes Last Modified By: Edgard ZELAYA, Cheryl GALLARDO 10/31/24 16:29:17 General Comments: CHART OPENED TO COMPLETE AND FINALIZE MARINO ZELAYA Finalized By: Edgard ZELAYA, Cheryl GALLARDO Document Signatures Signed By: Edgard ZELAYA, Cheryl GALLARDO 10/31/24 16:29 Normal [facility] Fish and Urine Cyt o ([facility])on 10-30-2024 UVFISH & UC Diagnosis Info Invalid Interpretation Code [facility] Comment on above: Result Comment: A:Ur ine,Urine:Bladder Wash Diagnosis Summary - Occasional atypical urothelial cells with degenerative changes. Diagnosis Summary - The UroVysion FISH study detected normal copy numbers for chromosomes 3, 7, 17, and 9p21. 132 cells were analyzed in this evaluation. No evidence of aneuploidy for chromosomes 3, 7, or 17 or deletion of the 9p21 locus was found in cells present in this specimen. This test does not rule out the possibility of a low grade non-invasive papillary urothelial carcinoma. These findings should be correlated with cytology and cystoscopy results. * CPT: 04876, 99693. Microscopic Notes - Microscopic Notes - Abnormal cells 9p21 deletions: Abnormal cells aneploid events: Total cells analyzed: 132 Hematuria: Gross Description Site ID:A color Yellow fixative Alcohol Received 90 mls of clear yellow fluid with the patient's name and, Urine on the vial. Electronically signed by : on: 10/30/2024 14:51:19 Performed By: #### 1 [id number] #### [facility] [address] [place] [id number] Main OR Intraoperative Recor don 10-24-2024 Main OR Intraoperative Record Main OR Intraoperative Record IntraOp Document Type FTURO Summary Primary Physician: Lionel WHITNEY MD Finalized Date/Time: 10/24/24 10:25:48 Pt. Name: MARY DIAZ/Sex: 1950 Male Med Rec #: [id number] Physician: Lionel WHITNEY MD Financial #: [id number] Pt. Type: O Room/Bed: / Admit/Disch: 10/24/24 09:20:44 - Institution: Case Times FTURO Entry 1 Patient Times In Room 10/24/24 10:10:00 Out Room 10/24/24 10:29:00 Procedure Times Start 10/24/24 10:18:00 Stop 10/24/24 10:24:00 Anesthesia Times Last Modified By: PAULINA Rene RN, Ruthann 10/24/24 10:23:49 Case Attendance FTURO Entry 1 Entry 2 Entry 3 Case Attendee Lionel WHITNEY MD, RN, CNOR, Safia GROSS, Nanci Luna Role Performed Surgeon - Primary Silver Service Waiter - Primary Scrub - Primary Time In 10/24/24 09:45:00 10/24/24 09:45:00 10/24/24 09:45:00 Time Out 10/24/24 10:29:00 10/24/24 10:29:00 10/24/24 10:29:00 Procedure CYSTOSCOPY LOCAL(.) CYSTOSCOPY LOCAL(.) CYSTOSCOPY LOCAL(.) Comments Last Modified By: EDITH Rene RNOR, PAULINA Rene RN, PAULINA Rene RN, Cheryl 10/24/24 Cheryl 10/24/24 Cheryl 10/24/24 10:23:50 10:23:50 10:23:50 Surgical Procedures FTURO Entry 1 Procedure Description Procedure CYSTOSCOPY LOCAL Modifiers . Surgeon Description CYSTO Primary Procedure Yes Primary Surgeon Lionel WHITNEY MD 10/24/24 10:18:00 Stop 10/24/24 10:24:00 Anesthesia Type Local Surgical Service Urology Wound Class 2 - Clean-Contaminated Last Modified By: PAULINA Rene RN, Ruthann 10/24/24 10:23:56 General Case Data FTURO Pre-Care Text: Classifies surgical wound, implements aseptic technique, initiates traffic control Entry 1 Case Information OR URO 1 FT Case Level None Wound Class 2 - Clean-Contaminated Specialty Urology Preop Diagnosis HISTORY OF BLADDER AND Postop Same As Preop No PROSTATE CANCERS Postop Diagnosis clear bladder Outcomes Met? Yes Last Modified By: PAULINA Rene RN, Cheryl 10/24/24 10:21:51 Post-Care Text: The patient is free from [...] Luna CST, Kimberly A Time Out Complete 10/24/24 10:15:00 Allergies Reviewed? Yes Allergies Reviewed Self/Patient With Body Position Supine Prep Area penis Prep Agents Betadine Solution Skin. Condition Unable to Visualize Additional FISH Specimens Collected Vitals - EU Blood Pressure 123/75 Pulse 91 bpm Respirations 18 br/min SPO2 EBL 0 I&O - EU Total Intake 0 Total Output 0 Outcomes Met? Yes Last Modified By: PAULINA Rene RN, Ruthann 10/24/24 10:25:45 Post-Care Text: The patient is free from [...] name), if applicable addressed Sign Out Complete 10/24/24 10:27:00 Last Modified By: PAULINA Rene RN, Ruthann 10/24/24 10:25:26 Case Comments Finalized By: PAULINA Rene RN, Ruthann Document Signatures Signed By: PAULINA Rene RN, Ruthann 10/24/24 10:25 Normal [facility] Operative Reporton Operative Report Operative Report Patient: MARY DIAZ Age: 74 years Sex: Male : 1950 Associated Diagnoses: None Author: Lionel WHITNEY MD Procedure Operative Information Details: Date/ Time: 10/24/2024 10:30:00. 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 Post-Op Dx: Same. Anesthesia Type: Local. Procedure: Local Cystoscopy. Complications: None. Risks/Benefits/Informed Consent: Surgical risks, benefits, details of the [...] Absent prostate. The Bladder is: Abnormal, Trabeculated No evidence of papillary bladder tumors. No lesions concerning for bladder cancer. Multiple prior resection sites with necrotic debris adhered.. The ureteral orifices: Show efflux of clear urine. Specimens Removed: Bladder wash sent for FISH and Cytology test. Devices Implanted: None. Removal: Cystoscope is removed, The patient tolerated it well. Postoperative Information Discharge: Patient is discharged home with antibiotic coverage, Follow up arranged. He will get 3 more BCG treatments and then surveillance cystoscopy in 3 to 4 months.. Normal [facility] Comment on above: Result Comment: Elec tronically Signed By: DEVONTE NOBLE, Lionel Burgos\.br\Date and Time Signed: 10/24/24 10:31 EDT UroVysion Fish and Urine Cyt o ([facility])on 10-24-2024 [facility] Method of Extraction Bladder Wash Normal [facility] Comment on above: Performed By: #### 1 [id number] #### [facility] [address] [place] [address] [facility] Number of Jars 1 Invalid Interpretation Code [facility] Comment on above: Performed By: #### 1 [id number] #### [facility] [address] [place] [address] [facility] Specimen Urine Normal [facility] Comment on above: Performed By: #### 1 [id number] #### [facility] [address] [place] [address] [facility] Type of Service Technical Only Normal [facility] Comment on above: Performed By: #### 1 [id number] #### [facility] [address] [place] [address] Ambulatory Visit Summaryon 0 10-09-2024 Ambulatory Visit Summary Ambulatory Visit Summary MARY DIAZ :1950 Visit Date:10/09/2024 Ambulatory Visit Instructions Your Diagnosis Bladder cancer History of prostate cancer History of kidney stones Impotence Your Care Team Attending Physician - Lionel WHITNEY MD Primary Care Physician - Deandre Monterroso MD This Is Your Medications List sildenafil (sildenafil 100 mg Tab) Contact prescribing physician if questions or concerns acetaminophen-hydrocodone (acetaminophen-hydrocodone 325 mg-5 mg oral tablet) colchicine (Colcrys 0.6 mg oral tablet) diclofenac (diclofenac sodium 75 mg Oral EC Tab) doxazosin (doxazosin 1 mg Tab) fluticasone/umeclidinium/v ilanterol (Trelegy Ellipta 100 mcg-62.5 mcg-25 mcg inhalation powder) hydrochlorothiazide-lisino pril (hydrochlorothiazide-lisin opril 12.5 mg-20 mg Tab) liothyronine (liothyronine 25 mcg Tab) lisinopril (lisinopril 20 mg Tab) pantoprazole (Pantoprazole [address] Tab) [...] of knee, Cervical vertebral fusion. Discharge Vitals Temperature (Temporal Artery) 37 ???C Heart Rate (Peripheral) 80 Respiratory Rate 26 Blood Pressure 137/89 Height 170 cm Height 67 in Weight 84 kg Weight 185.188 lb BMI 29.07 What to do next Scheduled Follow-Up Appointments Wednesday 10:30 AM EDT Where: [facility] Wednesday 10:15 AM EDT Where: [facility] You Need to Schedule the Following Appointments Follow Up with DEVONTE NOBLE, CAROLINA Salazar When: Where: [facility] [address], [place] [phone] Medications What How Much When Instructions Unchanged sildenafil (sildenafil 100 mg Tab) 1 Tablets By Mouth As Directed Take 1 tablet 1 hr prior to sexual activity as needed. Don't exceed 1 tab (100 mg) in a 24 hr period. Unchanged acetaminophen-hydrocodone (acetaminophen-hydrocodone 325 mg-5 mg oral tablet) 1 Tablets Contact prescribing physician if questions or concerns Unchanged colchicine (Colcrys 0.6 mg oral tablet) 1 Tablets By Mouth Every day as needed for Gout pain Contact prescribing physician if questions or concerns Unchanged diclofenac (diclofenac sodium 75 mg Oral EC Tab) 1 Tablets By Mouth 2 times a day Contact prescribing physician if questions or concerns Unchanged doxazosin (doxazosin 1 mg Tab) 1 Tablets Contact prescribing physician if questions or concerns Unchanged fluticasone/ umeclidinium/ vilanterol (Trelegy Ellipta 100 mcg-62.5 mcg-25 mcg inhalation powder) 1 Puffs Inhalation Every day Contact prescribing physician if questions or concerns Unchanged hydrochlorothiazide-lisino pril (hydrochlorothiazide-lisin opril 12.5 mg-20 mg Tab) 1 Tablets Contact prescribing physician if questions or concerns Unchanged liothyronine (liothyronine 25 mcg Tab) Contact prescribing physician if questions or concerns Unchanged lisinopril (lisinopril 20 mg Tab) 1 Tablets Contact prescribing physician if questions or concerns [...] choosing us for your care. Education Materials Cystoscopy Cystoscopy is a procedure that is used to help diagnose and sometimes treat conditions that affect the lower urinary tract. The lower urinary tract includes the bladder and the uret (more content not included)... Normal [facility] Ambulatory Visit Summary Ambulatory Visit Summary MARY DIAZ :1950 Visit Date:10/09/2024 Ambulatory Visit Instructions Your Diagnosis Bladder cancer History of prostate cancer History of kidney stones Impotence Your Care Team Attending Physician - DEVONTE NOBLE, Lionel Burgos Primary Care Physician - Deandre Monterroso MD This Is Your Medications List sildenafil (sildenafil 100 mg Tab) Contact prescribing physician if questions or concerns acetaminophen-hydrocodone (acetaminophen-hydrocodone 325 mg-5 mg oral tablet) colchicine (Colcrys 0.6 mg oral tablet) diclofenac (diclofenac sodium 75 mg Oral EC Tab) doxazosin (doxazosin 1 mg Tab) fluticasone/umeclidinium/v ilanterol (Trelegy Ellipta 100 mcg-62.5 mcg-25 mcg inhalation powder) hydrochlorothiazide-lisino pril (hydrochlorothiazide-lisin opril 12.5 mg-20 mg Tab) liothyronine (liothyronine 25 mcg Tab) lisinopril (lisinopril 20 mg Tab) pantoprazole (Pantoprazole [address] Tab) [...] of knee, Cervical vertebral fusion. Discharge Vitals Temperature (Temporal Artery) 37 ???C Heart Rate (Peripheral) 80 Respiratory Rate 26 Blood Pressure 137/89 Height 170 cm Height 67 in Weight 84 kg Weight 185.188 lb BMI 29.07 What to do next Scheduled Follow-Up Appointments Wednesday. 2024 10:30 AM EDT Where: [facility] Wednesday 10:15 AM EDT Where: [facility] You Need to Schedule the Following Appointments Follow Up with DEVONTE NOBLE, CAROLINA Salazar When: Where: [facility] [address] [place] [address]- [phone] Medications What How Much When Instructions Unchanged sildenafil (sildenafil 100 mg Tab) 1 Tablets By Mouth As Directed Take 1 tablet 1 hr prior to sexual activity as needed. Don't exceed 1 tab (100 mg) in a 24 hr period. Unchanged acetaminophen-hydrocodone (acetaminophen-hydrocodone 325 mg-5 mg oral tablet) 1 Tablets Contact prescribing physician if questions or concerns Unchanged colchicine (Colcrys 0.6 mg oral tablet) 1 Tablets By Mouth Every day as needed for Gout pain Contact prescribing physician if questions or concerns Unchanged diclofenac (diclofenac sodium 75 mg Oral EC Tab) 1 Tablets By Mouth 2 times a day Contact prescribing physician if questions or concerns Unchanged doxazosin (doxazosin 1 mg Tab) 1 Tablets Contact prescribing physician if questions or concerns Unchanged fluticasone/ umeclidinium/ vilanterol (Trelegy Ellipta 100 mcg-62.5 mcg-25 mcg inhalation powder) 1 Puffs Inhalation Every day Contact prescribing physician if questions or concerns Unchanged hydrochlorothiazide-lisino pril (hydrochlorothiazide-lisin opril 12.5 mg-20 mg Tab) 1 Tablets Contact prescribing physician if questions or concerns Unchanged liothyronine (liothyronine 25 mcg Tab) Contact prescribing physician if questions or concerns Unchanged lisinopril (lisinopril 20 mg Tab) 1 Tablets Contact prescribing physician if questions or concerns [...] choosing us for your care. Education Materials Cystoscopy Cystoscopy is a procedure that is used to help diagnose and sometimes treat conditions that affect the lower urinary tract. The lower urinary tract includes the bladder and the uret (more content not included)... Normal [facility] Urology Office/Clinic Noteon 10-09-2024 Urology Office/Clinic Note Urology Office/Clinic Note Chief Complaint f/u with PSA HPI Staff 74 yr old male here foe 1 yr f/u w/ PSA Dx: bladder cancer, hx of prostate cancer (radical prostatectomy 08/2014) hx of kidney stones and impotence *Sildenafil 100mg PRN and 4P injection therapy PSA: 09/21/22 - <0.13 09/21/23 - <0.1 08/16/24 - 0.03 Pt states that he does have some urinary leakage but feels it is not very bothersome, denies any other urinary symptoms at this time. Pt states that he completed 6 BCG's at [facility] cancer [facility] in August. History of Present Illness Tests reviewed: reviewed UA, PSA, CT scans I have reviewed the previous health record information and history for this patient from Dr. Whitney and external providers. I have reviewed and verified the staff [...] See HPI. Physical Exam Vitals & Measurements T: 37 ???C(Temporal Artery) HR: 80(Peripheral) RR: 26 BP: 137/89 HT: 67 in HT: 170 cm WT: 84 kg WT: 185.188 lb BMI: 29.07 General Appearance: alert, no distress, well nourished, well developed male. Assessment/Plan 1. Bladder cancer (C67.9: Malignant neoplasm of bladder, unspecified) Original TURBT 10/29/21 - Non-invasive, low grade TCC. 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 Mitomycin 03/26/22 and 04/20/22. TURBT 01/14/23 - Neg. Chronic inflammation and extensive necrosis. 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 [1] Saw Dr. Norberto Leedy 07/19/24 at [facility], recommended BCG #6 to start 2wks later. BCG #6 complete 09/13/24 [facility]. Neg CT AP/Chest scan 09/01/24 [facility]. -Has cysto scheduled 10/24/24 2. History of prostate cancer (Z85.46: Personal history of malignant neoplasm of prostate) PSA: 07/05/20 - 0.05 09/12/21 - 0.05 09/21/22 - <0.13 09/21/23 - <0.13 ([facility]) 08/16/24 - 0.03 ([facility]) S/p radical prostatectomy 08/2014. PSA remains low and stable. Will cont to monitor. 3. History of kidney stones (Z87.442: Personal history of urinary calculi) Has family hx of stones (sister and son). [2] 4. Impotence (N52.31: Erectile dysfunction following radical prostatectomy) Sildenafil 100 mg PRN and 4P injection therapy. [3] Follow-up With When Contact Information DEVONTE NOBLE, Lionel Burgos, URL [facility] [address], [place] [address]- [phone] Additional Instructions: has cysto in October Patient Education Cystoscopy I, Lilo Zhou, personally scribed for Dr. Whitney on 10/09/2024 11:03:21. . Documentation recorded by the scribe, Lilo Zhou, accurately reflects the services(s) I performed and decisions made by me. Authenticated by Dr. Whitney on 10/09/2024 11:06:06. Problem List/Past Medical History Ongoing Acute gouty [...] Arthroscopy of knee, Cervical vertebral fusion. Medications acetaminophen-hydrocodone 325 mg-5 mg oral tablet, 1 tab(s) Colcrys 0.6 mg oral tablet, 0.6 mg= 1 tab(s), Oral, Daily, PRN diclofenac sodium 75 mg Oral EC Tab, 75 mg= 1 tab(s), Oral, BID doxazos (more content not included)... Normal [facility] Comment on above: Result Comment: Elec tronically Signed By: Lionel WHITNEY MD\.br\Date and Time Signed: 10/09/24 11:06 EDT\.br\Electronically Co-Signed By: Lilo Zhou\.br\Date and Time Co-Signed: 10/09/24 11:03 EDT No Panel Informationon 10-06 SUZAN Mehta 10/06/2024 10:34 AM L Inj/Asp: [...] discussed. Consent was given by the patient. [facility] NM Heart Perfusion W stress and W radionuclide Reinaldo 09-20-2024 Normal [facility] Myov iew cardiac perfusion imaging stress test. No evidence [...] Carlos Bell 09/20/2024 3:47 PM Dictation workstation: [id number] [facility] Interpreted By: Carlos Bell, and Sam Foote STUDY: MYOCARDIAL PERFUSION STRESS TEST WITH EXERCISE CONVERTED TO LEXISCAN Performing facility: [facility] Provider: Cady Espinosa MD, FACC PCP: Dr. Pascual Monterroso Supervising provider: Rolly Michaels MD, FACC INDICATION: Signs/Symptoms:ABN EKG, chest pressure. ,R07.89 Other chest pain,R06.02 Shortness of breath HISTORY: Gender: M; Age: 74 y/o ; Height: HT 182.9 cm cm; Weight: WT 88.633 kg kg. High Cholesterol; HTN; Chest Pain; SOB; Quit smoking 21 years ago. COMPARISON: No comparison. ACCESSION NUMBER(S): [id number] ORDERING CLINICIAN: CADY ESPINOSA TECHNIQUE: ONE DAY protocol. Stress injection: Date: [...] There were evidence of diaphragmatic attenuation artifact. [facility] MM[facility] Carlos Bell MD - 09/20/2024 Interpreted By: TraboulCarlos santos and Giannuzzi Michael STUDY: MYOCARDIAL PERFUSION STRESS TEST WITH EXERCISE CONVERTED TO LEXISCAN Performing facility: [facility] Provider: Cady Espinosa MD, [facility] PCP: Dr. Pascual Monterroso Supervising provider: Rolly Michaels MD, [facility] INDICATION: Signs/Symptoms:ABN EKG, chest pressure. ,R07.89 Other chest pain,R06.02 Shortness of breath HISTORY: Gender: M; Age: 74 y/o ; Height: HT 182.9 cm cm; Weight: WT 88.633 kg kg. High Cholesterol; HTN; Chest Pain; SOB; Quit smoking 21 years ago. COMPARISON: No comparison. ACCESSION NUMBER(S): [id number] ORDERING CLINICIAN: CADY ESPINOSA TECHNIQUE: ONE DAY protocol. Stress injection: Date: [...] Carlos Bell 09/20/2024 3:47 PM Dictation workstation: [id number] [facility] Work Phone: Radiology Study observation (narrative) [facility] Work Phone: NM Heart Perfusion W stress and W radionuclide IVOrdered By: Carlos Bell on 09-20-2024 [facility] Work Phone: NUCLEAR STRESS TESTon 2024 NUCLEAR STRESS TEST Interpreted By: Carlos Bell and Giannuzzi Michael STUDY: MYOCARDIAL PERFUSION STRESS TEST WITH EXERCISE CONVERTED TO LEXISCAN Performing facility: [facility] Provider: Cady Espinosa MD, FACC PCP: Dr. Pascual Monterroso Supervising provider: Rolly Michaels MD, FACC INDICATION: Signs/Symptoms:ABN EKG, chest pressure. ,R07.89 Other chest pain,R06.02 Shortness of breath HISTORY: Gender: M; Age: 74 y/o ; Height: HT 182.9 cm cm; Weight: WT 88.633 kg kg. High Cholesterol; HTN; Chest Pain; SOB; Quit smoking 21 years ago. COMPARISON: No comparison. ACCESSION NUMBER(S): [id number] ORDERING CLINICIAN: CADY ESPINOSA TECHNIQUE: ONE DAY protocol. Stress injection: Date: [...] Carlos Bell 09/20/2024 3:47 PM Dictation workstation: [id number] [facility] CBC W Auto Differential pane l (Bld)on 09-13-2024 Basophils (Bld) [#/Vol] 0.03 10*3/uL [facility] Basophils/100 WBC (Bld) 0.4 % [facility] Differential cell count method Nom (Bld) Auto [facility] Eosinophils (Bld) [#/Vol] 0.13 10*3/uL [facility] Eosinophils/100 WBC (Bld) 1.6 % [facility] Erythrocyte distribution width (RBC) [Ratio] 13.2 % 11.5 - 15.0 % [facility] Hematocrit (Bld) [Volume fraction] 37.8 % Low 39.0 - 51.0 % [facility] Hemoglobin (Bld) [Mass/Vol] 12.4 g/dL Low 13.0 - 17.0 g/dL [facility] Immature granulocytes (Bld) [#/Vol] 0.03 10*3/uL [facility] Immature granulocytes/100 WBC (Bld) 0.4 % [facility] Interpretation and review of laboratory results Abnormal [facility] Lymphocytes (Bld) [#/Vol] 1.84 10*3/uL [facility] Lymphocytes/100 WBC (Bld) 22.3 % [facility] MCH (RBC) [Entitic mass] 30.6 pg 26.0 - 34.0 pg [facility] MCHC (RBC) [Mass/Vol] 32.8 g/dL 30.5 - 36.0 g/dL [facility] MCV (RBC) [Entitic vol] 93.3 fL 80.0 - 100.0 fL [facility] Monocytes (Bld) [#/Vol] 0.72 10*3/uL [facility] Monocytes/100 WBC (Bld) 8.7 % [facility] Neutrophils (Bld) [#/Vol] 5.51 10*3/uL [facility] Neutrophils/100 WBC (Bld) 66.6 % [facility] Nucleated RBC (Bld) [#/Vol] [facility] Nucleated RBC/100 WBC (Bld) [Ratio] 0 % /100 WBC [facility] Platelet mean volume (Bld) [Entitic vol] 9.6 fL 9.0 - 12.7 fL [facility] Platelets (Bld) [#/Vol] 267 10*3/uL [facility] RBC (Bld) [#/Vol] 4.05 10*6/uL Low 4.20 - 6.00 m/uL [facility] WBC (Bld) [#/Vol] 8.26 10*3/uL [facility] Basophils (Bld) [#/Vol] 0.03 10*3/uL Normal <0.11 [facility] Comment on above: Order Comment: Speci men Type: BLOOD SPECIMENOrdering Facility: [facility] Address: [address] [place] [address] Performed By: #### 5 7021-8 ####[facility] LABCLIA [id number] [place] [address] Basophils/100 WBC (Bld) 0.4 % Normal [facility] Comment on above: Order Comment: Speci men Type: BLOOD SPECIMENOrdering Facility: [facility] Address: [address] [place] [address] Performed By: #### 5 7021-8 ####[facility] LABCLIA [id number] [place] [address] Differential cell count method Nom (Bld) Auto Normal [facility] Comment on above: Order Comment: Speci men Type: BLOOD SPECIMENOrdering Facility: [facility] Address: [address] [place] [address] Performed By: #### 5 7021-8 ####[facility] LABCLIA [id number] [place] [address] Eosinophils (Bld) [#/Vol] 0.13 10*3/uL Normal <0.46 [facility] Comment on above: Order Comment: Speci men Type: BLOOD SPECIMENOrdering Facility: [facility] Address: [address] [place] [address] Performed By: #### 5 7021-8 ####[facility] LABCLIA [id number] [place] [address] Eosinophils/100 WBC (Bld) 1.6 % Normal [facility] Comment on above: Order Comment: Speci men Type: BLOOD SPECIMENOrdering Facility: [facility] Address: [address] [place] [address] Performed By: #### 5 7021-8 ####[facility] LABCLIA [id number] [place] [address] Erythrocyte distribution width (RBC) [Ratio] 13.2 % Normal 11.5-15.0 [facility] Comment on above: Order Comment: Speci men Type: BLOOD SPECIMENOrdering Facility: [facility] Address: [address] [place] [address] Performed By: #### 5 7021-8 ####[facility] LABCLIA [id number] [place] [address] Hematocrit (Bld) [Volume fraction] 37.8 % Low 39.0-51.0 [facility] Comment on above: Order Comment: Speci men Type: BLOOD SPECIMENOrdering Facility: [facility] Address: [address] [place] [address] Performed By: #### 5 7021-8 ####[facility] LABCLIA [id number] [place] [address] Hemoglobin (Bld) [Mass/Vol] 12.4 g/dL Low 13.0-17.0 [facility] Comment on above: Order Comment: Speci men Type: BLOOD SPECIMENOrdering Facility: [facility] Address: [address] [place] [address] Performed By: #### 5 7021-8 ####[facility] LABCLIA [id number] [place] [address] Immature granulocytes (Bld) [#/Vol] 0.03 10*3/uL Normal <0.10 [facility] Comment on above: Order Comment: Speci men Type: BLOOD SPECIMENOrdering Facility: [facility] Address: [address] [place] [address] Performed By: #### 5 7021-8 ####[facility] LABIA [id number] [place] [address] Immature granulocytes/100 WBC (Bld) 0.4 % Normal [facility] Comment on above: Order Comment: Speci men Type: BLOOD SPECIMENOrdering Facility: [facility] Address: [address] [place] [address] Performed By: #### 5 7021-8 ####[facility] LABCLIA [id number] [place] [address] Lymphocytes (Bld) [#/Vol] 1.84 10*3/uL Normal 1.00-4.00 [facility] Comment on above: Order Comment: Speci men Type: BLOOD SPECIMENOrdering Facility: [facility] Address: [address] [place] [address] Performed By: #### 5 7021-8 ####[facility] LABCLIA [id number] [place] [address] Lymphocytes/100 WBC (Bld) 22.3 % Normal [facility] Comment on above: Order Comment: Speci men Type: BLOOD SPECIMENOrdering Facility: [facility] Address: [address] [place] [address] Performed By: #### 5 7021-8 ####[facility] LABCLIA [id number] [place] [address] MCH (RBC) [Entitic mass] 30.6 pg Normal 26.0-34.0 [facility] Comment on above: Order Comment: Speci men Type: BLOOD SPECIMENOrdering Facility: [facility] Address: [address] [place] [address] Performed By: #### 5 7021-8 ####[facility] LABCLIA [id number] [place] [address] MCHC (RBC) [Mass/Vol] 32.8 g/dL Normal 30.5-36.0 [facility] Comment on above: Order Comment: Speci men Type: BLOOD SPECIMENOrdering Facility: [facility] Address: [address] [place] [address] Performed By: #### 5 7021-8 ####[facility] LABCLIA [id number] [place] [address] MCV (RBC) [Entitic vol] 93.3 fL Normal 80.0-100.0 [facility] Comment on above: Order Comment: Speci men Type: BLOOD SPECIMENOrdering Facility: [facility] Address: [address] [place] [address] Performed By: #### 5 7021-8 ####[facility] LABCLIA [id number] [place] [address] Monocytes (Bld) [#/Vol] 0.72 10*3/uL Normal <0.87 [facility] Comment on above: Order Comment: Speci men Type: BLOOD SPECIMENOrdering Facility: [facility] Address: [address] [place] [address] Performed By: #### 5 7021-8 ####[facility] LABCLIA [id number] [place] [address] Monocytes/100 WBC (Bld) 8.7 % Normal [facility] Comment on above: Order Comment: Speci men Type: BLOOD SPECIMENOrdering Facility: [facility] Address: [address] [place] [address] Performed By: #### 5 7021-8 ####[facility] LABCLIA [id number] [place] [address] Neutrophils (Bld) [#/Vol] 5.51 10*3/uL Normal 1.45-7.50 [facility] Comment on above: Order Comment: Speci men Type: BLOOD SPECIMENOrdering Facility: [facility] Address: [address] [place] [address] Performed By: #### 5 7021-8 ####[facility] LABCLIA [id number] [place] [address] Neutrophils/100 WBC (Bld) 66.6 % Normal [facility] Comment on above: Order Comment: Speci men Type: BLOOD SPECIMENOrdering Facility: [facility] Address: [address] [place] [address] Performed By: #### 5 7021-8 ####[facility] LABCLIA [id number] [place] [address] Nucleated RBC (Bld) [#/Vol] 10*3/uL Normal <0.01 [facility] Comment on above: Order Comment: Speci men Type: BLOOD SPECIMENOrdering Facility: [facility] Address: [address] [place] [address] Performed By: #### 5 7021-8 ####[facility] LABCLIA [id number] [place] [address] Nucleated RBC/100 WBC (Bld) [Ratio] 0.0 /100 WBC Normal [facility] Comment on above: Order Comment: Speci men Type: BLOOD SPECIMENOrdering Facility: [facility] Address: [address] [place] [address] Performed By: #### 5 7021-8 ####[facility] LABCLIA [id number] [place] [address] Platelet mean volume (Bld) [Entitic vol] 9.6 fL Normal 9.0-12.7 [facility] Comment on above: Order Comment: Speci men Type: BLOOD SPECIMENOrdering Facility: [facility] Address: [address] [place] [address] Performed By: #### 5 7021-8 ####[facility] LABCLIA [id number] [place] [address] Platelets (Bld) [#/Vol] 267 10*3/uL Normal 150-400 [facility] Comment on above: Order Comment: Speci men Type: BLOOD SPECIMENOrdering Facility: [facility] Address: [address] [place] [address] Performed By: #### 5 7021-8 ####[facility] LABCLIA [id number] [place] [address] RBC (Bld) [#/Vol] 4.05 10*6/uL Low 4.20-6.00 [facility] Comment on above: Order Comment: Speci men Type: BLOOD SPECIMENOrdering Facility: [facility] Address: [address] [place], [place] [address] Performed By: #### 5 7021-8 ####[facility] LABCLIA [id number] [place] [address] WBC (Bld) [#/Vol] 8.26 10*3/uL Normal 3.70-11.00 [facility] Comment on above: Order Comment: Speci men Type: BLOOD SPECIMENOrdering Facility: [facility] Address: [address] [place], [place] [address] Performed By: #### 5 7021-8 ####[facility] LABCLIA [id number] [place] [address] [facility] Nurse Visit (HEMASA) -- MARY DIAZ ([id number]) 1950 [facility] Date Time Provider Department 09/13/24 2:00 PM [facility] NURSE ENRIQUE TAY During your visit today, we recorded the following information about you: Suzanna Waters MA 09/13/2024 1:46 PM Signed UA performed as ordered. Suzanna Waters MA Referring Provider: NORBERTO ANDRADE [[id number]] Allergies As of Date: 09/13/2024 Noted Allergy Reaction CODEINE 03/30/2017 2 - Rash Comments: Agitation, Doesn't work Date Reviewed: 09/13/2024 Reviewed by: Cydney Honeycutt MA - Fully Assessed Primary Visit Diagnosis:Malignant neoplasm of urinary bladder, unspecified site (HCC) [C67.9] Prescriptions as of 09/13/2024 - Fluorouracil 5 % cream Apply to directed areas on the forearms and backs of hands twice a day x 14 days. Dispense 30 day supply but only use for 14 days. - HYDROcodone-acetaminophen (NORCO) 5-325 mg per tablet Take 1 tablet by mouth at bedtime as needed. - hchvtebyozj-hakwwsfng-dtea nter (TRELEGY ELLIPTA) 100-62.5-25 mcg inhalation powder = 1 puff(s), Inhalation, Daily, Refills(s) 0 - iv contrast (will be provided with radiology test) CT Chest ABD/PEL-Inject, intravenously, [...] in the CT contrast administration guidelines link. - enteric contrast (will be provided with radiology test) For CT CHESTABD/PEL W IVCON Routine order Administer, As Directed One Time Only, via Oral, Rectal, both Oral and Rectal, Enteric Tube, Stoma or Indwelling Catheter, Enteric Contrast as designated per enteric contrast guidelines - doxazosin (CARDURA) 1 mg tablet Take 1 mg by mouth. - methocarbamol 1,000 mg tablet Take 1,000 mg by mouth as needed (bedtime prn). - mv-min/folic/K1/lycopen/ana tein (MEN 50 PLUS MULTIVITAMIN ORAL) Take 1 tablet by mouth once daily. - lisinopril (ZESTRIL) 20 mg tablet Take 20 mg by mouth once daily. - lisinopril-hydroCHLOROthia zide (ZESTORETIC) 20-12.5 mg per tablet Take 1 [...] 100 mg by mouth as needed. - hckntgdmnxg-hjylfhbqh-vtiv nter (TRELEGY ELLIPTA) 100-62.5-25 mcg inhalation powder Inhale 1 Puff as instructed once daily. Facility-Administered Medications as of 09/13/2024 - bcg (TANISHA BCG) 50 mg in NaCl 0.9% 50 mL - NaCl 0.9% iv infusion - diphenhydrAMINE 50 mg injection (BENADRYL) - hydrocortisone sodium succinate (PF) 100 mg injection (Solu-CORTEF) - EPINEPHrine 1 mg/mL (1 mL) 0.3 mg injection Problem List As Of Date 09/13/2024 Noted Resolved Bladder cancer (HCC) [C67.9] 07/26/2024 Encounter Status:Closed by SUZANNA WATERS on 09/13/24 [facility] CNOVSPon 09-13-2024 [facility] Visit (SP) Office ( [facility]) -- MARY DIAZ ([id number]) 1950 [facility] Date Time Provider Department 09/13/24 1:00 PM NORBERTO ANDRADE During your visit today, we recorded the following information about you: Temperature Pulse Respiration Blood pressure 97.6 degrees 73/minute 18/minute 119/75 Weight 86.6 kg Norberto Andrade MD 09/13/2024 1:18 PM Signed PATIENT NAME: Mary Diaz CLINIC NO.: [id number] ATTENDING PHYSICIAN: Norberto Andrade MD DATE OF SERVICE: 09/13/[address] Lionel Whitney [address] [facility] [address] thank you for referring Mary Diaz for an opinion regarding non muscle invasive bladder cancer. Some of the elements of this note have been copied from my previous progress note dated 08/16/24. All the information has been reviewed carefully. 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 Urology recommended induction BCG x 6 treatments. H/o prostate cancer s/p radical prostatectomy in 08/2014. No smoking Occasional alcohol Doing well No major complaints. 08/02/24: - Doing well - No major complaints - C/o left hip pain - Doing intraarticular steroid injection next week on Wednesday. 08/16/24: - Doing well - No major complaints - C/o easy bruising 09/13/24: - Week 6 BCG today - Doing well - No major complaints. - Scheduled for cystoscopy in October 2024. - CT scans unremarkable. Current Outpatient Medications Medication Sig HYDROcodone-acetaminophen (NORCO) 5-325 mg per tablet Take 1 tablet by mouth at bedtime as needed. reliudwuotr-cyyarysgy-xhms nter (TRELEGY ELLIPTA) 100-62.5-25 mcg inhalation powder = 1 puff(s), Inhalation, Daily, Refills(s) 0 iv contrast (will be provided with radiology test) CT Chest ABD/PEL-Inject, intravenously, [...] in the CT contrast administration guidelines link. enteric contrast (will be provided with radiology test) For CT CHESTABD/PEL W IVCON Routine order Administer, As Directed One Time Only, via Oral, Rectal, both Oral and Rectal, Enteric Tube, Stoma or Indwelling Catheter, Enteric Contrast as designated per enteric contrast guidelines doxazosin (CARDURA) 1 mg tablet Take 1 mg by mouth. methocarbamol 1,000 mg tablet Take 1,000 mg by mouth as needed (bedtime prn). mv-min/folic/K1/lycopen/ana tein (MEN 50 PLUS MULTIVITAMIN ORAL) Take 1 tablet by mouth once daily. lisinopril (ZESTRIL) 20 mg tablet Take 20 mg by mouth once daily. lisinopril-hydroCHLOROthia zide (ZESTORETIC) 20-12.5 mg per tablet Take 1 [...] Take 100 mg by mouth as needed. vdorufnzgwa-lzwrqngdq-hzpj nter (TRELEGY ELLIPTA) 100-62.5-25 mcg inhalation powder Inhale [...] 2 diabetes) Father Hypertension Father Social History (more content not included)... Normal [facility] Comprehensive metabolic 2000 panelOrdered By: Violeta Presley on 09-13-2024 Albumin [Mass/Vol] 4.5 g/dL 3.9 - 4.9 g/dL [facility] ALP [Catalytic activity/Vol] 56 U/L 38 - 113 U/L [facility] ALT [Catalytic activity/Vol] 19 U/L 10 - 54 U/L [facility] Anion gap [Moles/Vol] 11 mmol/L 8 - 15 mmol/L [facility] AST [Catalytic activity/Vol] 16 U/L 14 - 40 U/L [facility] Bilirubin [Mass/Vol] 0.4 mg/dL 0.2 - 1 .3 mg/dL [facility] Calcium [Mass/Vol] 10 mg/dL 8.5 - 10. 2 mg/dL [facility] Chloride [Moles/Vol] 103 mmol/L 98 - 10 7 mmol/L [facility] CO2 [Moles/Vol] 24 mmol/L 22 - 30 mmol/L [facility] Creatinine [Mass/Vol] 1.34 mg/dL High 0.73 - 1.22 mg/dL [facility] GFR/1.73 sq M.predicted among non-blacks MDRD (S/P/Bld) [Vol rate/Area] 56 mL/min/{1.73_m2} Low - PINF [facility] Comment on above: Estimated Glomerular Filtration Rate (eGFR) is calculated using the 2020 CKD-EPI creatinine equation. This equation utilizes serum creatinine, sex, and age as parameters. The creatinine assay has traceable calibration to isotope dilution-mass spectrometry. Refer to KDIGO guidelines for clinical interpretation. In patients with unstable renal function, e.g. those with acute kidney injury, the eGFR may not accurately reflect actual GFR. Glucose [Mass/Vol] 93 mg/dL 74 - 99 mg/dL [facility] Comment on above: The [place] Diab[employer] s Association (ADA) provides guidance for cutoff values [...] Standards of Medical Care in Diabetes 2016, [place] [employer]. Diabetes Care. 2016.39(Suppl 1). Interpretation and review of laboratory results Abnormal [facility] Potassium [Moles/Vol] 4.5 mmol/L 3.7 - 5.1 mmol/L [facility] Protein [Mass/Vol] 6.6 g/dL 6.3 - 8.0 g/dL [facility] Sodium [Moles/Vol] 138 mmol/L 136 - 144 mmol/L [facility] Urea nitrogen [Mass/Vol] 21 mg/dL 9 - 24 mg/dL [facility] Comprehensive metabolic 2000 panelon 09-13-2024 Albumin [Mass/Vol] 4.5 g/dL Normal 3.9-4.9 [facility] Comment on above: Order Comment: Speci men Type: BLOOD SPECIMENOrdering Facility: [facility] Address: [address] [place] [address] Performed By: #### 2 4323-8 ####[facility] LABCLIA [id number] [place] [address] ALP [Catalytic activity/Vol] 56 U/L Normal 38-113 [facility] Comment on above: Order Comment: Speci men Type: BLOOD SPECIMENOrdering Facility: [facility] Address: [address] [place] [address] Performed By: #### 2 4323-8 ####[facility] LABCLIA [id number] [place] [address] ALT [Catalytic activity/Vol] 19 U/L Normal 10-54 [facility] Comment on above: Order Comment: Speci men Type: BLOOD SPECIMENOrdering Facility: [facility] Address: [address] [place] [address] Performed By: #### 2 4323-8 ####[facility] LABCLIA [id number] [place] [address] Anion gap [Moles/Vol] 11 mmol/L Normal 8-15 [facility] Comment on above: Order Comment: Speci men Type: BLOOD SPECIMENOrdering Facility: [facility] Address: [address] [place] [address] Performed By: #### 2 4323-8 ####[facility] LABCLIA [id number] [place] [address] AST [Catalytic activity/Vol] 16 U/L Normal 14-40 [facility] Comment on above: Order Comment: Speci men Type: BLOOD SPECIMENOrdering Facility: [facility] Address: [address] [place] [address] Performed By: #### 2 4323-8 ####[facility] LABCLIA [id number] [place] [address] Bilirubin [Mass/Vol] 0.4 mg/dL Normal 0.2-1.3 [facility] Comment on above: Order Comment: Speci men Type: BLOOD SPECIMENOrdering Facility: [facility] Address: [address] [place] [address] Performed By: #### 2 4323-8 ####[facility] LABCLIA [id number] [place] [address] Calcium [Mass/Vol] 10.0 mg/dL Normal 8.5-10.2 [facility] Comment on above: Order Comment: Speci men Type: BLOOD SPECIMENOrdering Facility: [facility] Address: [address] [place] [address] Performed By: #### 2 4323-8 ####[facility] LABCLIA [id number] [place] [address] Chloride [Moles/Vol] 103 mmol/L Normal 98-107 [facility] Comment on above: Order Comment: Speci men Type: BLOOD SPECIMENOrdering Facility: [facility] Address: [address] [place] [address] Performed By: #### 2 4323-8 ####[facility] LABCLIA [id number] [place] [address] CO2 [Moles/Vol] 24 mmol/L Normal 22-30 [facility] Comment on above: Order Comment: Speci men Type: BLOOD SPECIMENOrdering Facility: [facility] Address: [address] [place], [place] [address] Performed By: #### 2 4323-8 ####[facility] LABCLIA [id number] [place] [address] Creatinine [Mass/Vol] 1.34 mg/dL High 0.73-1.22 [facility] Comment on above: Order Comment: Manoj conner Type: BLOOD SPECIMENOrdering Facility: [facility] Address: [address] [place] [address] Performed By: #### 2 4323-8 ####[facility] LABCLIA [id number] [place] [address] Creatinine and Glomerular filtration rate.predicted panel (S/P/Bld) 56 mL/min/1.73m??? Low >=60 [facility] Comment on above: Order Comment: Manoj conner Type: BLOOD SPECIMENOrdering Facility: [facility] Address: [address] [place] [address] Result Comment: Emely mated Glomerular Filtration Rate [...] actual GFR. Performed By: #### 2 4323-8 ####[facility] LABIA [id number] [place] [address] Glucose [Mass/Vol] 93 mg/dL Normal 74-99 [facility] Comment on above: Order Comment: Manoj conner Type: BLOOD SPECIMENOrdering Facility: [facility] Address: [address] [place], [place] [address] Result Comment: The [place] Diabetes Association (ADA) provides guidance for cutoff [...] Standards of Medical Care in Diabetes 2016, [place] [employer]. Diabetes Care. 2016.39(Suppl 1). Performed By: #### 2 4323-8 ####[facility] LABCLIA [id number] [place] [address] Potassium [Moles/Vol] 4.5 mmol/L Normal 3.7-5.1 [facility] Comment on above: Order Comment: Speci men Type: BLOOD SPECIMENOrdering Facility: [facility] Address: [address] [place] [address] Performed By: #### 2 4323-8 ####[facility] LABIA [id number] [place] [address] Protein [Mass/Vol] 6.6 g/dL Normal 6.3-8.0 [facility] Comment on above: Order Comment: Speci men Type: BLOOD SPECIMENOrdering Facility: [facility] Address: [address] [place] [address] Performed By: #### 2 4323-8 ####[facility] LABCLIA [id number] [place] [address] Sodium [Moles/Vol] 138 mmol/L Normal 136-144 [facility] Comment on above: Order Comment: Speci men Type: BLOOD SPECIMENOrdering Facility: [facility] Address: [address] [place] [address] Performed By: #### 2 4323-8 ####[facility] LABCLIA [id number] [place] [address] Urea nitrogen [Mass/Vol] 21 mg/dL Normal 9-24 [facility] Comment on above: Order Comment: Speci men Type: BLOOD SPECIMENOrdering Facility: [facility] Address: [address] [place] [address] Performed By: #### 2 4323-8 ####[facility] LABCLIA [id number] [place] [address] CT ABD/PEL W IVCONon 025 CT ABD/PEL W IVCON * * *Final Report* * * DATE OF EXAM: Sep 01 2024 3:07PM [facility] 0530 - CT ABD/PEL W IVCON / PROCEDURE REASON: Malignant neoplasm of urinary bladder, unspecified site (HCC) * * * * Physician Interpretation * * * * RESULT: EXAMINATION: CT ABDOMEN AND PELVIS WITH IV CONTRAST CLINICAL HISTORY: Urinary bladder cancer TECHNIQUE: CT of the abdomen and pelvis was performed using standard technique, scanning from just above the dome of the diaphragm to the symphysis pubis. MQ: CTAP_3 Contrast: IV: 100 ml of Omnipaque 350 Oral: 500 ml of Omni 240 10-25ml diluted with water CT Radiation dose: Integrated Dose-length product (DLP) for this visit = 976 mGy*cm. CT Dose Reduction Employed: Automated exposure control (AEC) COMPARISON: None. RESULT: Liver: No mass. Subcentimeter hypodensities, too small to characterize but most likely cysts. Biliary: No bile duct dilation. Gallbladder is unremarkable. Spleen: No mass. No splenomegaly. Calcified granulomas. Pancreas: No mass or duct dilation. Adrenals: No mass. Kidneys: No mass, calculus or hydronephrosis. GI tract: No dilation or wall thickening. Sigmoid colon diverticulosis is noted without evidence of diverticulitis. Lymph nodes: No abdominal or pelvic lymphadenopathy. Mesentery/Peritoneum: No ascites or mass. Retroperitoneum: No mass. Vasculature: - Abdominal aorta and iliac arteries: Atherosclerotic calcifications without aneurysm. 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 Celiac artery is widely patent. - Portal venous system (SMV, splenic vein, portal vein and branches): Patent. - Hepatic veins: Patent. Pelvis: No mass, ascites or fluid collection. Status post facetectomy. There is a urinary bladder may represent recent instrumentation or gas forming infection. Bones/Soft Tissues: No suspicious lytic or blastic osseous lesions. Lower thorax: A chest CT performed will be reported separately. Localizer images: No additional findings. IMPRESSION: 1. No evidence of intra-abdominal/pelvic metastases. 2. Subcentimeter hepatic hypodensities, too small to characterize but most likely benign. Consider interval follow-up. 3. 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 Recommend clinical correlation. Transcribe Date/Time: Sep 03 2024 1:03P Dictated by: SOO SRINIVASAN MD This examination was interpreted and the report reviewed and electronically signed by: SOO SRINIVASAN MD on Sep 03 2024 1:30PM EST Thank you for allowing us to participate in the care of your patient. Should there be any questions regarding this interpretation, please call [phone]. If you are unable to reach us at the number above, please feel free to contact [facility] at [phone]. [id number] Normal [facility] CT CHEST W IVCONon CT CHEST W IVCON * * *Final Report* * * DATE OF EXAM: Sep 01 2024 3:07PM [facility] 0539 - CT CHEST W IVCON / PROCEDURE REASON: Malignant neoplasm of urinary bladder, unspecified site (HCC) * * * * Physician Interpretation * * * * RESULT: EXAMINATION: CHEST CT WITH CONTRAST CLINICAL HISTORY: Urinary bladder cancer Technique: Spiral CT acquisition of the chest from the thoracic inlet to the upper abdomen following IV contrast. MQ: CTCW_6 Contrast: 100 mL Omnipaque [address] Radiation dose: Integrated Dose-length product (DLP) for this visit = 976 mGy*cm CT Dose Reduction Employed: Automated exposure control (AEC) Comparison: None available RESULT: Limitations: None. Lines, tubes, and devices: None. Lung parenchyma and airways: Moderately severe emphysematous changes of the lungs. Calcified granulomas are noted. The central airways are patent. Pleural space: No pleural effusion. No pleural thickening. Lower neck, lymph nodes, and mediastinum: The imaged thyroid gland is normal. Calcified mediastinal lymph nodes are identified. No evidence of enlarged noncalcified mediastinal lymph nodes. Heart, pericardium, and thoracic vessels: The thoracic aorta and main pulmonary artery are normal in caliber. The cardiac chambers are normal in size. Atherosclerotic coronary artery calcifications are noted. No pericardial effusion or thickening. Bones and soft tissues: Postoperative changes of the cervicothoracic spine. No suspicious lytic or blastic osseous lesions. Upper abdomen: Please refer to the abdomen CT scan report for the abdomen findings. Localizer images: No additional findings. IMPRESSION: 1. No evidence of intrathoracic metastases. 2. Findings compatible with previous granulomatous disease. 3. Moderately severe emphysematous changes of the lungs. Transcribe Date/Time: Sep 03 2024 12:53P Dictated by: SOO SRINIVASAN MD This examination was interpreted and the report reviewed and electronically signed by: SOO SRINIVASAN MD on Sep 03 2024 1:29PM EST Thank you for allowing us to participate in the care of your patient. Should there be any questions regarding this interpretation, please call [phone]. If you are unable to reach us at the number above, please feel free to contact [facility] at [phone]. [id number] Normal [facility] Reminderson 09-01-2024 Reminders Reminders From: Loretta Simons To: EU - Recalls Whitney; Sent: 09/01/2024 15:18:36 EDT Show up: 02/19/2025 15:18:00 EDT Subject: cysto/fish/cytol Due Date/Time: 03/19/2025 15:18:00 EDT Reminder/Recall Patient is due in Apr 2025 cysto/fish/cytol (6 mo) [facility] Reminders Reminders From: Loretta Simons To: EU - Recalls Whitney; Sent: 04/13/2024 11:42:40 EDT Show up: 08/19/2024 11:42:00 EST Subject: Cysto/Needs FISH/cytol Due Date/Time: 09/11/2024 11:42:00 EDT Reminder/Recall Patient is due in October 2024 for 6 month cysto/fish/cytol, bt ck Spoke to austyn hendricks for 10/24/24 at [facility].LG Normal [facility] CNNURSEon 08-30-2024 CNNURSE Nurse Visit (MAGGI) -- MARY DIAZ ([id number]) 1950 [facility] Date Time Provider Department 08/30/24 2:30 PM [facility] NURSE ENRIQUE BELINDA TAY During your visit today, we recorded the following information about you: Suzanna Waters MA 08/30/2024 1:24 PM Signed UA performed as ordered. Suzanna Waters MA Referring Provider: NORBERTO ANDRADE [[id number]] Allergies As of Date: 08/30/2024 Noted Allergy Reaction CODEINE 03/30/2017 2 - Rash Comments: Agitation, Doesn't work Date Reviewed: 08/30/2024 Reviewed by: Alice Pearce, NATHALIE - Fully Assessed Primary Visit Diagnosis:UTI symptoms [R39.9] Prescriptions as of 08/30/2024 - HYDROcodone-acetaminophen (NORCO) 5-325 mg per tablet Take 1 tablet by mouth at bedtime as needed. - dgzdhpyvbxp-wnbljzfji-qaap nter (TRELEGY ELLIPTA) 100-62.5-25 mcg inhalation powder = 1 puff(s), Inhalation, Daily, Refills(s) 0 - iv contrast (will be provided with radiology test) CT Chest ABD/PEL-Inject, intravenously, [...] in the CT contrast administration guidelines link. - enteric contrast (will be provided with radiology test) For CT CHESTABD/PEL W IVCON Routine order Administer, As Directed One Time Only, via Oral, Rectal, both Oral and Rectal, Enteric Tube, Stoma or Indwelling Catheter, Enteric Contrast as designated per enteric contrast guidelines - doxazosin (CARDURA) 1 mg tablet Take 1 mg by mouth. - methocarbamol 1,000 mg tablet Take 1,000 mg by mouth as needed (bedtime prn). - mv-min/folic/K1/lycopen/ana tein (MEN 50 PLUS MULTIVITAMIN ORAL) Take 1 tablet by mouth once daily. - lisinopril (ZESTRIL) 20 mg tablet Take 20 mg by mouth once daily. - lisinopril-hydroCHLOROthia zide (ZESTORETIC) 20-12.5 mg per tablet Take 1 [...] 100 mg by mouth as needed. - vebdlfmedwb-nbumbxprv-trcr nter (TRELEGY ELLIPTA) 100-62.5-25 mcg inhalation powder Inhale 1 Puff as instructed once daily. Facility-Administered Medications as of 08/30/2024 - lidocaine urojet 2 % 11 mL topical gel (GLYDO) - bcg 50 mg in NaCl 0.9% 50 mL - NaCl 0.9% iv infusion - diphenhydrAMINE 50 mg injection (BENADRYL) - hydrocortisone sodium succinate (PF) 100 mg injection (Solu-CORTEF) - EPINEPHrine 1 mg/mL (1 mL) 0.3 mg injection Problem List As Of Date 08/30/2024 Noted Resolved Bladder cancer (HCC) [C67.9] 07/26/2024 Encounter Status:Closed by SUZANNA WATERS on 08/30/24 [facility] 08-23-2024 CNNURSE Nurse Visit (HEMASA) -- MARY DIAZ ([id number]) 1950 [facility] Time Provider Department 08/23/24 2:00 PM BRUNO PEOPLESASA During your visit today, we recorded the following information about you: Santosh Del Rio MA 08/23/2024 1:29 PM Signed UA performed as ordered. Santosh Del Rio MA Referring Provider: NORBERTO ANDRADE [[id number]] Allergies As of Date: 08/23/2024 Noted Allergy Reaction CODEINE 03/30/2017 2 - Rash Comments: Agitation, Doesn't work Date Reviewed: 08/16/2024 Reviewed by: Gama Be MA - Fully Assessed Primary Visit Diagnosis:High risk medication use [Z79.899] Order(s):UA DIP, URINE (POC) [4762386] Order #: [id number]. #:[id number] 1-LAB Prescriptions as of 08/23/2024 - HYDROcodone-acetaminophen (NORCO) 5-325 mg per tablet Take 1 tablet by mouth at bedtime as needed. - rofuqonlken-ulrxvakfy-tpjg nter (TRELEGY ELLIPTA) 100-62.5-25 mcg inhalation powder = 1 puff(s), Inhalation, Daily, Refills(s) 0 - iv contrast (will be provided with radiology test) CT Chest ABD/PEL-Inject, intravenously, [...] in the CT contrast administration guidelines link. - enteric contrast (will be provided with radiology test) For CT CHESTABD/PEL W IVCON Routine order Administer, As Directed One Time Only, via Oral, Rectal, both Oral and Rectal, Enteric Tube, Stoma or Indwelling Catheter, Enteric Contrast as designated per enteric contrast guidelines - doxazosin (CARDURA) 1 mg tablet Take 1 mg by mouth. - methocarbamol 1,000 mg tablet Take 1,000 mg by mouth as needed (bedtime prn). - mv-min/folic/K1/lycopen/ana tein (MEN 50 PLUS MULTIVITAMIN ORAL) Take 1 tablet by mouth once daily. - lisinopril (ZESTRIL) 20 mg tablet Take 20 mg by mouth once daily. - lisinopril-hydroCHLOROthia zide (ZESTORETIC) 20-12.5 mg per tablet Take 1 [...] 100 mg by mouth as needed. - kgatddbvkjd-kasjsoind-gjnw nter (TRELEGY ELLIPTA) 100-62.5-25 mcg inhalation powder Inhale 1 Puff as instructed once daily. Problem List As Of Date 08/23/2024 Noted Resolved Bladder cancer (HCC) [C67.9] 07/26/2024 Encounter Status:Closed by SANTOSH DEL RIO on 08/23/24 Normal [facility] UA DIP, URINE (POC)on 2024 BILIRUBIN UA (POCT) Negative Negative [facility] CLARITY UA (POCT) Clear [facility] COLOR UA (POCT) Yellow [facility] GLUCOSE UA (POCT) Negative Negative mg/dL [facility] Hemoglobin Ql (U) Moderate Abnormal Negative [facility] Interpretation and review of laboratory results Abnormal [facility] KETONE UA (POCT) Negative Negative mg/dL [facility] LEUKOCYTES UA (POCT) Small Abnormal Negative [facility] NITRITE UA (POCT) Negative Negative [facility] PH UA (POCT) 6 4.5 - 8.0 [facility] Protein Ql (U) Negative Negative mg/dL [facility] SPECIFIC GRAVITY UA (POCT) >=1.030 1.005 - 1.030 [facility] UROBILINOGEN UA (POCT) 0.2 Ann l E.U./dL [facility] Location:[facility], [address] [place] [address] , [place], [place], [address] [facility] POINT OF CARE [facility] Reminderson 08-17-2024 Reminders Reminders From: Loretta Simons To: EU - Recalls Whitney; Sent: 07/12/2024 13:52:33 EST Show up: 08/07/2024 13:52:00 EST Subject: cysto after BCG tx Due Date/Time: 08/18/2024 13:52:00 EST Reminder/Recall Patient will need cysto sched 1 month after BCG tx in August 2024 Spoke to Dorota at [facility]. Pt sched for BCG tx 08/02/24- 09/13/24 last tx. Pt will get Cysto in september.LG Spoke to pt sched for 08/24/24 at [facility].LG October 24, 2024 not August.LG Normal [facility] CBC W Auto Differential pane l (Bld)on 08-16-2024 Basophils (Bld) [#/Vol] 0.04 10*3/uL Normal <0.11 [facility] Comment on above: Order Comment: Speci men Type: BLOOD SPECIMENOrdering Facility: [facility] Address: [address] [place] [address] Performed By: #### 5 7021-8 ####[facility] LABCLIA [id number] [place] [address] Basophils/100 WBC (Bld) 0.4 % Normal [facility] Comment on above: Order Comment: Speci men Type: BLOOD SPECIMENOrdering Facility: [facility] Address: [address] [place] [address] Performed By: #### 5 7021-8 ####[facility] LABCLIA [id number] [place] [address] Differential cell count method Nom (Bld) Auto Normal [facility] Comment on above: Order Comment: Speci men Type: BLOOD SPECIMENOrdering Facility: [facility] Address: [address] [place] [address] Performed By: #### 5 7021-8 ####[facility] LABCLIA [id number] [place] [address] Eosinophils (Bld) [#/Vol] 0.10 10*3/uL Normal <0.46 [facility] Comment on above: Order Comment: Speci men Type: BLOOD SPECIMENOrdering Facility: [facility] Address: [address] [place] [address] Performed By: #### 5 7021-8 ####[facility] LABCLIA [id number] [place] [address] Eosinophils/100 WBC (Bld) 0.9 % Normal [facility] Comment on above: Order Comment: Speci men Type: BLOOD SPECIMENOrdering Facility: [facility] Address: [address] [place] [address] Performed By: #### 5 7021-8 ####[facility] LABCLIA [id number] [place] [address] Erythrocyte distribution width (RBC) [Ratio] 12.8 % Normal 11.5-15.0 [facility] Comment on above: Order Comment: Speci men Type: BLOOD SPECIMENOrdering Facility: [facility] Address: [address] [place] [address] Performed By: #### 5 7021-8 ####[facility] LABCLIA [id number] [place] [address] Hematocrit (Bld) [Volume fraction] 39.7 % Normal 39.0-51.0 [facility] Comment on above: Order Comment: Speci men Type: BLOOD SPECIMENOrdering Facility: [facility] Address: [address] [place] [address] Performed By: #### 5 7021-8 ####[facility] LABCLIA [id number] [place] [address] Hemoglobin (Bld) [Mass/Vol] 13.0 g/dL Normal 13.0-17.0 [facility] Comment on above: Order Comment: Speci men Type: BLOOD SPECIMENOrdering Facility: [facility] Address: [address] [place] [address] Performed By: #### 5 7021-8 ####[facility] LABCLIA [id number] [place] [address] Immature granulocytes (Bld) [#/Vol] 0.12 10*3/uL High <0.10 [facility] Comment on above: Order Comment: Speci men Type: BLOOD SPECIMENOrdering Facility: [facility] Address: [address] [place] [address] Performed By: #### 5 7021-8 ####[facility] LABCLIA [id number] [place] [address] Immature granulocytes/100 WBC (Bld) 1.1 % Normal [facility] Comment on above: Order Comment: Speci men Type: BLOOD SPECIMENOrdering Facility: [facility] Address: [address] [place] [address] Performed By: #### 5 7021-8 ####[facility] LABCLIA [id number] [place] [address] Lymphocytes (Bld) [#/Vol] 1.55 10*3/uL Normal 1.00-4.00 [facility] Comment on above: Order Comment: Speci men Type: BLOOD SPECIMENOrdering Facility: [facility] Address: [address] [place] [address] Performed By: #### 5 7021-8 ####[facility] LABCLIA [id number] [place] [address] Lymphocytes/100 WBC (Bld) 14.2 % Normal [facility] Comment on above: Order Comment: Speci men Type: BLOOD SPECIMENOrdering Facility: [facility] Address: [address] [place] [address] Performed By: #### 5 7021-8 ####[facility] LABIA [id number] [place] [address] MCH (RBC) [Entitic mass] 30.8 pg Normal 26.0-34.0 [facility] Comment on above: Order Comment: Speci men Type: BLOOD SPECIMENOrdering Facility: [facility] Address: [address] [place] [address] Performed By: #### 5 7021-8 ####[facility] LABCLIA [id number] [place] [address] MCHC (RBC) [Mass/Vol] 32.7 g/dL Normal 30.5-36.0 [facility] Comment on above: Order Comment: Speci men Type: BLOOD SPECIMENOrdering Facility: [facility] Address: [address] [place] [address] Performed By: #### 5 7021-8 ####[facility] LABCLIA [id number] [place] [address] MCV (RBC) [Entitic vol] 94.1 fL Normal 80.0-100.0 [facility] Comment on above: Order Comment: Speci men Type: BLOOD SPECIMENOrdering Facility: [facility] Address: [address] [place] [address] Performed By: #### 5 7021-8 ####[facility] LABCLIA [id number] [place] [address] Monocytes (Bld) [#/Vol] 0.96 10*3/uL High <0.87 [facility] Comment on above: Order Comment: Speci men Type: BLOOD SPECIMENOrdering Facility: [facility] Address: [address] [place] [address] Performed By: #### 5 7021-8 ####[facility] LABCLIA [id number] [place] [address] Monocytes/100 WBC (Bld) 8.8 % Normal [facility] Comment on above: Order Comment: Speci men Type: BLOOD SPECIMENOrdering Facility: [facility] Address: [address] [place] [address] Performed By: #### 5 7021-8 ####[facility] LABCLIA [id number] [place] [address] Neutrophils (Bld) [#/Vol] 8.15 10*3/uL High 1.45-7.50 [facility] Comment on above: Order Comment: Speci men Type: BLOOD SPECIMENOrdering Facility: [facility] Address: [address] [place] [address] Performed By: #### 5 7021-8 ####[facility] LABCLIA [id number] [place] [address] Neutrophils/100 WBC (Bld) 74.6 % Normal [facility] Comment on above: Order Comment: Speci men Type: BLOOD SPECIMENOrdering Facility: [facility] Address: [address] [place] [address] Performed By: #### 5 7021-8 ####[facility] LABCLIA [id number] [place] [address] Nucleated RBC (Bld) [#/Vol] 10*3/uL Normal <0.01 [facility] Comment on above: Order Comment: Speci men Type: BLOOD SPECIMENOrdering Facility: [facility] Address: [address] [place] [address] Performed By: #### 5 7021-8 ####[facility] LABCLIA [id number] [place] [address] Nucleated RBC/100 WBC (Bld) [Ratio] 0.0 /100 WBC Normal [facility] Comment on above: Order Comment: Speci men Type: BLOOD SPECIMENOrdering Facility: [facility] Address: [address] [place] [address] Performed By: #### 5 7021-8 ####[facility] LABCLIA [id number] [place] [address] Platelet mean volume (Bld) [Entitic vol] 9.7 fL Normal 9.0-12.7 [facility] Comment on above: Order Comment: Speci men Type: BLOOD SPECIMENOrdering Facility: [facility] Address: [address] [place] [address] Performed By: #### 5 7021-8 ####[facility] LABCLIA [id number] [place] [address] Platelets (Bld) [#/Vol] 311 10*3/uL Normal 150-400 [facility] Comment on above: Order Comment: Speci men Type: BLOOD SPECIMENOrdering Facility: [facility] Address: [address] [place] [address] Performed By: #### 5 7021-8 ####[facility] LABIA [id number] [place] [address] RBC (Bld) [#/Vol] 4.22 10*6/uL Normal 4.20-6.00 [facility] Comment on above: Order Comment: Speci men Type: BLOOD SPECIMENOrdering Facility: [facility] Address: [address] [place] [address] Performed By: #### 5 7021-8 ####[facility] LABIA [id number] [place] [address] WBC (Bld) [#/Vol] 10.92 10*3/uL Normal 3.70-11.00 [facility] Comment on above: Order Comment: Speci men Type: BLOOD SPECIMENOrdering Facility: [facility] Address: [address] [place] [address] Performed By: #### 5 7021-8 ####[facility] LABIA [id number] [place] [address] [facility] 08-16-2024 CNNURSE Nurse Visit (HEMASA) -- MARY DIAZ ([id number]) 1950 [facility] Date Time Provider Department 08/16/24 2:15 PM BR[facility]O NURSE ENRIQUE TAY During your visit today, we recorded the following information about you: Cydney Honeycutt MA 08/16/2024 1:53 PM Signed Back office UA test performed. Results entered in [employer] and doctor notified. Cydney Honeycutt MA Referring Provider: NORBERTO ANDRADE [[id number]] Allergies As of Date: 08/16/2024 Noted Allergy Reaction CODEINE 03/30/2017 2 - Rash Comments: Agitation, Doesn't work Date Reviewed: 08/16/2024 Reviewed by: Gama Be MA - Fully Assessed Primary Visit Diagnosis:High risk medication use [Z79.899] Order(s):UA DIP, URINE (POC) [[id number]] Order #: [id number] #:[id number] 0-LAB Prescriptions as of 08/16/2024 - HYDROcodone-acetaminophen (NORCO) 5-325 mg per tablet Take 1 tablet by mouth at bedtime as needed. - edxheseykry-falfbfxpu-oxfl nter (TRELEGY ELLIPTA) 100-62.5-25 mcg inhalation powder = 1 puff(s), Inhalation, Daily, Refills(s) 0 - iv contrast (will be provided with radiology test) CT Chest ABD/PEL-Inject, intravenously, [...] in the CT contrast administration guidelines link. - enteric contrast (will be provided with radiology test) For CT CHESTABD/PEL W IVCON Routine order Administer, As Directed One Time Only, via Oral, Rectal, both Oral and Rectal, Enteric Tube, Stoma or Indwelling Catheter, Enteric Contrast as designated per enteric contrast guidelines - doxazosin (CARDURA) 1 mg tablet Take 1 mg by mouth. - methocarbamol 1,000 mg tablet Take 1,000 mg by mouth as needed (bedtime prn). - mv-min/folic/K1/lycopen/ana tein (MEN 50 PLUS MULTIVITAMIN ORAL) Take 1 tablet by mouth once daily. - lisinopril (ZESTRIL) 20 mg tablet Take 20 mg by mouth once daily. - lisinopril-hydroCHLOROthia zide (ZESTORETIC) 20-12.5 mg per tablet Take 1 [...] 100 mg by mouth as needed. - azrmdmodkco-vvzijmevo-ctay nter (TRELEGY ELLIPTA) 100-62.5-25 mcg inhalation powder Inhale 1 Puff as instructed once daily. Facility-Administered Medications as of 08/16/2024 - lidocaine urojet 2 % 11 mL topical gel (GLYDO) - bcg 50 mg in NaCl 0.9% 50 mL - NaCl 0.9% iv infusion - diphenhydrAMINE 50 mg injection (BENADRYL) - hydrocortisone sodium succinate (PF) 100 mg injection (Solu-CORTEF) - EPINEPHrine 1 mg/mL (1 mL) 0.3 mg injection Problem List As Of Date 08/16/2024 Noted Resolved Bladder cancer (HCC) [C67.9] 07/26/2024 Encounter Status:Closed by September on 08/16/24 [facility] CNOVSPon 08-16-2024 CNOVSP Visit (SP) Office (H EMASA) -- MARY DIAZ ([id number]) 1950 [facility] Date Time Provider Department 08/16/24 1:00 PM NORBERTO ANDRADE During your visit today, we recorded the following information about you: Temperature Pulse Respiration Blood pressure 98.2 degrees 86/minute 16/minute 148/83 Weight 87.5 kg Norberto Andrade MD 08/16/2024 1:29 PM Signed PATIENT NAME: Mary Diaz CLINIC NO.: [id number] ATTENDING PHYSICIAN: Norberto Andrade MD DATE OF SERVICE: 08/16/[address] 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 Urology recommended induction [...] mg by mouth as needed (bedtime prn). mv-min/folic/K1/lycopen/ana tein (MEN 50 PLUS MULTIVITAMIN ORAL) Take 1 tablet by mouth once daily. lisinopril (ZESTRIL) 20 mg tablet Take 20 mg by mouth once daily. lisinopril-hydroCHLOROthia zide (ZESTORETIC) 20-12.5 mg per tablet Take 1 [...] Take 100 mg by mouth as needed. zmicrvlcxto-lzgplynri-zipk nter (TRELEGY ELLIPTA) 100-62.5-25 mcg inhalation powder Inhale [...] Wt General appearance:ECOG PERFORMANCE STATUS: 0- Fully (more content not included)... Normal [facility] Comprehensive metabolic 2000 panelon 08-16-2024 Albumin [Mass/Vol] 4.5 g/dL Normal 3.9-4.9 [facility] Comment on above: Order Comment: Speci men Type: BLOOD SPECIMENOrdering Facility: [facility] Address: [address] [place] [address] Performed By: #### 2 4323-8 ####[facility] LABCLIA [id number] [place] [address] [place] ALP [Catalytic activity/Vol] 76 U/L Normal 38-113 [facility] Comment on above: Order Comment: Speci men Type: BLOOD SPECIMENOrdering Facility: [facility] Address: [address] [place] [address] Performed By: #### 2 4323-8 ####[facility] LABCLIA [id number] [place] [address] [place] ALT [Catalytic activity/Vol] 21 U/L Normal 10-54 [facility] Comment on above: Order Comment: Speci men Type: BLOOD SPECIMENOrdering Facility: [facility] Address: [address] [place] [address] Performed By: #### 2 4323-8 ####[facility] LABCLIA [id number] [place] [address] [place] Anion gap [Moles/Vol] 13 mmol/L Normal 8-15 [facility] Comment on above: Order Comment: Speci men Type: BLOOD SPECIMENOrdering Facility: [facility] Address: [address] [place] [address] Performed By: #### 2 4323-8 ####[facility] LABCLIA [id number] [place] [address] [place] AST [Catalytic activity/Vol] 20 U/L Normal 14-40 [facility] Comment on above: Order Comment: Speci men Type: BLOOD SPECIMENOrdering Facility: [facility] Address: [address] [place] [address] Performed By: #### 2 4323-8 ####[facility] LABCLIA [id number] [address] [address] [place] Bilirubin [Mass/Vol] 0.3 mg/dL Normal 0.2-1.3 [facility] Comment on above: Order Comment: Speci men Type: BLOOD SPECIMENOrdering Facility: [facility] Address: [address] [place] [address] Performed By: #### 2 4323-8 ####[facility] LABCLIA [id number] [place] [address] [place] Calcium [Mass/Vol] 9.7 mg/dL Normal 8.5-10.2 [facility] Comment on above: Order Comment: Speci men Type: BLOOD SPECIMENOrdering Facility: [facility] Address: [address] [place] [address] Performed By: #### 2 4323-8 ####[facility] LABCLIA [id number] [place] [address] [place] Chloride [Moles/Vol] 102 mmol/L Normal 98-107 [facility] Comment on above: Order Comment: Speci men Type: BLOOD SPECIMENOrdering Facility: [facility] Address: [address] [place] [address] Performed By: #### 2 4323-8 ####[facility] LABCLIA [id number] [place] [address] [place] CO2 [Moles/Vol] 24 mmol/L Normal 22-30 [facility] Comment on above: Order Comment: Speci men Type: BLOOD SPECIMENOrdering Facility: [facility] Address: [address] [place], [place] [address] Performed By: #### 2 4323-8 ####[facility] LABIA [id number] [address] [address] [place] Creatinine [Mass/Vol] 1.45 mg/dL High 0.73-1.22 [facility] Comment on above: Order Comment: Manoj conner Type: BLOOD SPECIMENOrdering Facility: [facility] Address: [address] [place] [address] Performed By: #### 2 4323-8 ####[facility] LABIA [id number] [place] [address] [place] Creatinine and Glomerular filtration rate.predicted panel (S/P/Bld) 51 mL/min/1.73m??? Low >=60 [facility] Comment on above: Order Comment: Manoj conner Type: BLOOD SPECIMENOrdering Facility: [facility] Address: [address] [place] [address] Result Comment: Emely mated Glomerular Filtration Rate [...] actual GFR. Performed By: #### 2 4323-8 ####[facility] LABIA [id number] [place] [address] [place] Glucose [Mass/Vol] 84 mg/dL Normal 74-99 [facility] Comment on above: Order Comment: Manoj conner Type: BLOOD SPECIMENOrdering Facility: [facility] Address: [address] [place] [address] Result Comment: The [place] Diabetes Association (ADA) provides guidance for cutoff [...] Standards of Medical Care in Diabetes 2016, [place] [employer]. Diabetes Care. 2016.39(Suppl 1). Performed By: #### 2 4323-8 ####[facility] LABCLIA [id number] [address] [address] [place] Potassium [Moles/Vol] 5.2 mmol/L High 3.7-5.1 [facility] Comment on above: Order Comment: Speci men Type: BLOOD SPECIMENOrdering Facility: [facility] Address: [address] [place] [address] Performed By: #### 2 4323-8 ####[facility] LABCLIA [id number] [address] [address] [place] Protein [Mass/Vol] 6.8 g/dL Normal 6.3-8.0 [facility] Comment on above: Order Comment: Speci men Type: BLOOD SPECIMENOrdering Facility: [facility] Address: [address] [place] [address] Performed By: #### 2 4323-8 ####[facility] LABCLIA [id number] [address] [address] [place] Sodium [Moles/Vol] 139 mmol/L Normal 136-144 [facility] Comment on above: Order Comment: Speci men Type: BLOOD SPECIMENOrdering Facility: [facility] Address: [address] [place], [place] [address] Performed By: #### 2 4323-8 ####[facility] LABCLIA [id number] [address] [address] [place] Urea nitrogen [Mass/Vol] 24 mg/dL Normal 9-24 [facility] Comment on above: Order Comment: Speci men Type: BLOOD SPECIMENOrdering Facility: [facility] Address: [address] [place] [address] Performed By: #### 2 4323-8 ####[facility] LABCLIA [id number] [place] [address] [place] PSA SerPl-ncon 08-16-2024 Prostate specific Ag [Mass/Vol] 0.03 ng/mL Normal <2.60 [facility] Comment on above: Order Comment: Speci men Type: BLOOD SPECIMENOrdering Facility: [facility] Address: [address] [place] [address] Result Comment: Tota l PSA test methodology used is the Electrochemiluminescence Immunoassay by [employer]. Total PSA values by differing methodologies cannot be interchanged. Performed By: #### 2 857-1 ####[facility] LABCLIA [id number] [place] [address] [place] UA DIP, URINE (POC)on 2024 BILIRUBIN UA (POCT) Negative Negative [facility] CLARITY UA (POCT) Clear [facility] COLOR UA (POCT) Yellow [facility] GLUCOSE UA (POCT) Negative Negative mg/dL [facility] Hemoglobin Ql (U) Negative Negative [facility] Interpretation and review of laboratory results Abnormal [facility] KETONE UA (POCT) Negative Negative mg/dL [facility] LEUKOCYTES UA (POCT) Trace Abnormal Negative [facility] NITRITE UA (POCT) Negative Negative [facility] PH UA (POCT) 5.5 4.5 - 8.0 [facility] Protein Ql (U) Negative Negative mg/dL [facility] SPECIFIC GRAVITY UA (POCT) 1.02 1.005 - 1.030 [facility] UROBILINOGEN UA (POCT) 0.2 Ann l E.U./dL [facility] Location:[facility], [address] [place] [address] , [place], [place], [address] [facility] POINT OF CARE [facility] CNNURSEon 08-09-2024 CNNURSE Nurse Visit (HEMASA) -- MARY DIAZ ([id number]) 1950 M [facility] Date Time Provider Department 08/09/24 2:00 PM BRUNO NURSE ENRIQUE TAY During your visit today, we recorded the following information about you: Cydney Honeycutt MA 08/09/2024 1:50 PM Signed Back office UA test performed. Results entered in [employer] and doctor notified. Cydney Honeycutt MA Referring Provider: NORBERTO ANDRADE [[id number]] Allergies As of Date: 08/09/2024 Noted Allergy Reaction CODEINE 03/30/2017 2 - Rash Comments: Agitation, Doesn't work Date Reviewed: 08/02/2024 Reviewed by: Santosh Del Rio MA - Fully Assessed Primary Visit Diagnosis:High risk medication use [Z79.899] Order(s):UA DIP, URINE (POC) [[id number]] Order #: [id number]. #:[id number] 9-LAB Prescriptions as of 08/09/2024 - doxazosin (CARDURA) 1 mg tablet Take 1 mg by mouth. - methocarbamol 1,000 mg tablet Take 1,000 mg by mouth as needed (bedtime prn). - mv-min/folic/K1/lycopen/ana tein (MEN 50 PLUS MULTIVITAMIN ORAL) Take 1 tablet by mouth once daily. - lisinopril (ZESTRIL) 20 mg tablet Take 20 mg by mouth once daily. - lisinopril-hydroCHLOROthia zide (ZESTORETIC) 20-12.5 mg per tablet Take 1 [...] 100 mg by mouth as needed. - pgwdldtobto-olhcemkof-ptjv nter (TRELEGY ELLIPTA) 100-62.5-25 mcg inhalation powder Inhale 1 Puff as instructed once daily. Problem List As Of Date 08/09/2024 Noted Resolved Bladder cancer (HCC) [C67.9] 07/26/2024 Encounter Status:Closed by September on 08/09/24 Normal [facility] UA DIP, URINE (POC)on 2024 BILIRUBIN UA (POCT) Negative Negative [facility] CLARITY UA (POCT) Clear [facility] COLOR UA (POCT) Yellow [facility] GLUCOSE UA (POCT) Negative Negative mg/dL [facility] Hemoglobin Ql (U) Negative Negative [facility] Interpretation and review of laboratory results Abnormal [facility] KETONE UA (POCT) Negative Negative mg/dL [facility] LEUKOCYTES UA (POCT) Trace Abnormal Negative [facility] NITRITE UA (POCT) Negative Negative [facility] PH UA (POCT) 5.5 4.5 - 8.0 [facility] Protein Ql (U) Negative Negative mg/dL [facility] SPECIFIC GRAVITY UA (POCT) 1.015 1.005 - 1.030 [facility] UROBILINOGEN UA (POCT) 0.2 Ann l E.U./dL [facility] Location:[facility], [address] [place] [address] [place], [place], [address] [facility] POINT OF CARE [facility] CNPGely 08-07-2024 CNPN Telephone (HEMASA) -- MARY DIAZ ([id number]) 1950 [facility] Date Time Provider Department 08/07/24 INGRID UGALDE During your visit today, we recorded the following information about you: Ingrid Ugalde, RN 08/07/2024 1:38 PM Signed CYCLE 1/DAY [...] Fully Assessed Reason for Visit: Care Coordination [3491] Cmt: C1D1 treatment follow up call Prescriptions as of 08/07/2024 - doxazosin (CARDURA) 1 mg tablet Take 1 mg by mouth. - methocarbamol 1,000 mg tablet Take 1,000 mg by mouth as needed (bedtime prn). - mv-min/folic/K1/lycopen/ana tein (MEN 50 PLUS MULTIVITAMIN ORAL) Take 1 tablet by mouth once daily. - lisinopril (ZESTRIL) 20 mg tablet Take 20 mg by mouth once daily. - lisinopril-hydroCHLOROthia zide (ZESTORETIC) 20-12.5 mg per tablet Take 1 [...] 100 mg by mouth as needed. - vdrpmhdlxtr-hutljablx-kfug nter (TRELEGY ELLIPTA) 100-62.5-25 mcg inhalation powder Inhale 1 Puff as instructed once daily. Problem List As Of Date 08/07/2024 Noted Resolved Bladder cancer (HCC) [C67.9] 07/26/2024 Encounter Status:Closed by INGRID UGALDE on 08/07/24 [facility] CNNURSEon 08-02-2024 [facility] Nurse Visit (HEMASA) -- MARY DIAZ ([id number]) 1950 [facility] Date Time Provider Department 08/02/24 9:00 AM [facility] NURSE ENRIQUE TREVINO HEMFELICIANO During your visit today, we recorded the following information about you: Santosh Del Rio MA 08/02/2024 8:51 AM Signed UA performed as ordered. Santosh Del Rio MA Referring Provider: NORBERTO ANDRADE [[id number]] Allergies As of Date: 08/02/2024 Noted Allergy Reaction CODEINE 03/30/2017 2 - Rash Comments: Agitation, Doesn't work Date Reviewed: 08/02/2024 Reviewed by: Santosh Del Rio MA - Fully Assessed Primary Visit Diagnosis:Malignant neoplasm of urinary bladder, unspecified site (HCC) [C67.9] Order(s):UA DIP, URINE (POC) [[id number]] Order #: [id number]. #:[id number] 7-LAB Prescriptions as of 08/02/2024 - doxazosin (CARDURA) 1 mg tablet Take 1 mg by mouth. - methocarbamol 1,000 mg tablet Take 1,000 mg by mouth as needed (bedtime prn). - mv-min/folic/K1/lycopen/ana tein (MEN 50 PLUS MULTIVITAMIN ORAL) Take 1 tablet by mouth once daily. - lisinopril (ZESTRIL) 20 mg tablet Take 20 mg by mouth once daily. - lisinopril-hydroCHLOROthia zide (ZESTORETIC) 20-12.5 mg per tablet Take 1 [...] 100 mg by mouth as needed. - gixqsuvemde-icdoevktm-luen nter (TRELEGY ELLIPTA) 100-62.5-25 mcg inhalation powder Inhale 1 Puff as instructed once daily. Problem List As Of Date 08/02/2024 Noted Resolved Bladder cancer (HCC) [C67.9] 07/26/2024 Encounter Status:Closed by SANTOSH DEL RIO on 08/02/24 [facility] CNOVSPon 08-02-2024 OVSP Visit (SP) Office ( EMASA) -- MARY DIAZ ([id number]) 1950 [facility] Date Time Provider Department 08/02/24 8:30 AM NORBERTO ANDRADE During your visit today, we recorded the following information about you: Temperature Pulse Respiration Blood pressure 97.5 degrees 80/minute 18/minute 131/79 Weight 88.5 kg Norberto Andrade MD 08/02/2024 9:15 AM Signed PATIENT NAME: Mary Diaz CLINIC NO.: [id number] ATTENDING PHYSICIAN: Norberto Andrade MD DATE OF SERVICE: 08/02/[address] 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 Urology recommended induction [...] mg by mouth as needed (bedtime prn). mv-min/folic/K1/lycopen/ana tein (MEN 50 PLUS MULTIVITAMIN ORAL) Take 1 tablet by mouth once daily. lisinopril (ZESTRIL) 20 mg tablet Take 20 mg by mouth once daily. lisinopril-hydroCHLOROthia zide (ZESTORETIC) 20-12.5 mg per tablet Take 1 [...] Take 100 mg by mouth as needed. ndqygalsluu-aljtaafgs-qgjz nter (TRELEGY ELLIPTA) 100-62.5-25 mcg inhalation powder Inhale [...] Eyes: Anic (more content not included)... Normal [facility] UA DIP, URINE (POC)on 2024 BILIRUBIN UA (POCT) Negative Negative [facility] CLARITY UA (POCT) Clear [facility] COLOR UA (POCT) Yellow [facility] GLUCOSE UA (POCT) Negative Negative mg/dL [facility] Hemoglobin Ql (U) Small Abnormal Negative [facility] Interpretation and review of laboratory results Abnormal [facility] KETONE UA (POCT) Negative Negative mg/dL [facility] LEUKOCYTES UA (POCT) Small Abnormal Negative [facility] NITRITE UA (POCT) Negative Negative [facility] PH UA (POCT) 5.5 4.5 - 8.0 [facility] Protein Ql (U) Trace Abnormal Negative mg/dL [facility] SPECIFIC GRAVITY UA (POCT) 1.02 1.005 - 1.030 [facility] UROBILINOGEN UA (POCT) 0.2 Ann l E.U./dL [facility] Location:[facility], [address] [place] [address] , [place], [place], [id number] [place] [address] POINT OF CARE [facility] CNPGely 08-01-2024 CNPN Telephone (HEMAMS) -- MARY DIAZ ([id number]) 1950 Sue [facility] Date Time Provider Department 08/01/24 FINANCIAL NAVIGATOR ENRIQUE QUINONES During your visit today, we recorded the following information about you: Esther Patterson 08/01/2024 12:10 PM Signed Spoke with patient over the phone today. Patient is active with [employer], LOC 80%, $0 deductible has $0 remaining, $3500 OOP has $3400 remaining. Estimate shows patient financial responsibility is $134.16 for each treatment in 2024 until oop max is reached. Patient stated understanding. Reference #[id number]. There is currently no Bladder funding available, but will add him to my wait list. My[employer] completed over the phone. He was very appreciative of my phone call. Allergies As of Date: 08/01/2024 Noted Allergy Reaction CODEINE 03/30/2017 2 - Rash Comments: Agitation, Doesn't work Date Reviewed: 07/19/2024 Reviewed by: Suzanna Waters MA - Fully Assessed Reason for Visit: Benefits Investigation [0939] Cmt: Good Day Mary, I am your [...] feel free to stop in or call [phone] for any questions you may have. Prescriptions as of 08/01/2024 - methocarbamol 1,000 mg tablet Take 1,000 mg by mouth as needed (bedtime prn). - mv-min/folic/K1/lycopen/ana tein (MEN 50 PLUS MULTIVITAMIN ORAL) Take 1 tablet by mouth once daily. - lisinopril (ZESTRIL) 20 mg tablet Take 20 mg by mouth once daily. - lisinopril-hydroCHLOROthia zide (ZESTORETIC) 20-12.5 mg per tablet Take 1 [...] 100 mg by mouth as needed. - gvlylpoqfpx-sehrduult-odfw nter (TRELEGY ELLIPTA) 100-62.5-25 mcg inhalation powder Inhale 1 Puff as instructed once daily. Problem List As Of Date 08/01/2024 Noted Resolved Bladder cancer (HCC) [C67.9] 07/26/2024 Encounter Status:Closed by ESTHER PATTERSON on 08/01/24 Normal [facility] CBC W Auto Differential pane l (Bld)on 07-26-2024 Basophils (Bld) [#/Vol] 10*3/uL Normal <0.11 [facility] Comment on above: Order Comment: Speci men Type: BLOOD SPECIMENOrdering Facility: [facility] Address: [address] [place] [address] Performed By: #### 5 7021-8 ####[facility] LABCLIA [id number] [place] [address] Basophils/100 WBC (Bld) 0.3 % Normal [facility] Comment on above: Order Comment: Speci men Type: BLOOD SPECIMENOrdering Facility: [facility] Address: [address] [place] [address] Performed By: #### 5 7021-8 ####[facility] LABCLIA [id number] [place] [address] Differential cell count method Nom (Bld) Auto Normal [facility] Comment on above: Order Comment: Speci men Type: BLOOD SPECIMENOrdering Facility: [facility] Address: [address] [place] [address] Performed By: #### 5 7021-8 ####[facility] LABCLIA [id number] [place] [address] Eosinophils (Bld) [#/Vol] 0.13 10*3/uL Normal <0.46 [facility] Comment on above: Order Comment: Speci men Type: BLOOD SPECIMENOrdering Facility: [facility] Address: [address] [place] [address] Performed By: #### 5 7021-8 ####[facility] LABCLIA [id number] [place] [address] Eosinophils/100 WBC (Bld) 1.9 % Normal [facility] Comment on above: Order Comment: Speci men Type: BLOOD SPECIMENOrdering Facility: [facility] Address: [address] [place] [address] Performed By: #### 5 7021-8 ####[facility] LABCLIA [id number] [place] [address] Erythrocyte distribution width (RBC) [Ratio] 13.9 % Normal 11.5-15.0 [facility] Comment on above: Order Comment: Speci men Type: BLOOD SPECIMENOrdering Facility: [facility] Address: [address] [place] [address] Performed By: #### 5 7021-8 ####[facility] LABCLIA [id number] [place] [address] Hematocrit (Bld) [Volume fraction] 36.5 % Low 39.0-51.0 [facility] Comment on above: Order Comment: Speci men Type: BLOOD SPECIMENOrdering Facility: [facility] Address: [address] [place] [address] Performed By: #### 5 7021-8 ####[facility] LABCLIA [id number] [place] [address] Hemoglobin (Bld) [Mass/Vol] 12.4 g/dL Low 13.0-17.0 [facility] Comment on above: Order Comment: Speci men Type: BLOOD SPECIMENOrdering Facility: [facility] Address: [address] [place] [address] Performed By: #### 5 7021-8 ####[facility] LABCLIA [id number] [place] [address] Immature granulocytes (Bld) [#/Vol] 0.05 10*3/uL Normal <0.10 [facility] Comment on above: Order Comment: Speci men Type: BLOOD SPECIMENOrdering Facility: [facility] Address: [address] [place] [address] Performed By: #### 5 7021-8 ####[facility] LABCLIA [id number] [place] [address] Immature granulocytes/100 WBC (Bld) 0.7 % Normal [facility] Comment on above: Order Comment: Speci men Type: BLOOD SPECIMENOrdering Facility: [facility] Address: [address] [place] [address] Performed By: #### 5 7021-8 ####[facility] LABCLIA [id number] [place] [address] Lymphocytes (Bld) [#/Vol] 1.40 10*3/uL Normal 1.00-4.00 [facility] Comment on above: Order Comment: Speci men Type: BLOOD SPECIMENOrdering Facility: [facility] Address: [address] [place] [address] Performed By: #### 5 7021-8 ####[facility] LABCLIA [id number] [place] [address] Lymphocytes/100 WBC (Bld) 20.7 % Normal [facility] Comment on above: Order Comment: Speci men Type: BLOOD SPECIMENOrdering Facility: [facility] Address: [address] [place] [address] Performed By: #### 5 7021-8 ####[facility] LABCLIA [id number] [place] [address] MCH (RBC) [Entitic mass] 31.2 pg Normal 26.0-34.0 [facility] Comment on above: Order Comment: Speci men Type: BLOOD SPECIMENOrdering Facility: [facility] Address: [address] [place] [address] Performed By: #### 5 7021-8 ####[facility] LABCLIA [id number] [place] [address] MCHC (RBC) [Mass/Vol] 34.0 g/dL Normal 30.5-36.0 [facility] Comment on above: Order Comment: Speci men Type: BLOOD SPECIMENOrdering Facility: [facility] Address: [address] [place] [address] Performed By: #### 5 7021-8 ####[facility] LABCLIA [id number] [place] [address] MCV (RBC) [Entitic vol] 91.7 fL Normal 80.0-100.0 [facility] Comment on above: Order Comment: Speci men Type: BLOOD SPECIMENOrdering Facility: [facility] Address: [address] [place] [address] Performed By: #### 5 7021-8 ####[facility] LABCLIA [id number] [place] [address] Monocytes (Bld) [#/Vol] 0.62 10*3/uL Normal <0.87 [facility] Comment on above: Order Comment: Speci men Type: BLOOD SPECIMENOrdering Facility: [facility] Address: [address] [place] [address] Performed By: #### 5 7021-8 ####[facility] LABCLIA [id number] [place] [address] Monocytes/100 WBC (Bld) 9.2 % Normal [facility] Comment on above: Order Comment: Speci men Type: BLOOD SPECIMENOrdering Facility: [facility] Address: [address] [place] [address] Performed By: #### 5 7021-8 ####[facility] LABCLIA [id number] [place] [address] Neutrophils (Bld) [#/Vol] 4.54 10*3/uL Normal 1.45-7.50 [facility] Comment on above: Order Comment: Speci men Type: BLOOD SPECIMENOrdering Facility: [facility] Address: [address] [place] [address] Performed By: #### 5 7021-8 ####[facility] LABCLIA [id number] [place] [address] Neutrophils/100 WBC (Bld) 67.2 % Normal [facility] Comment on above: Order Comment: Speci men Type: BLOOD SPECIMENOrdering Facility: [facility] Address: [address] [place] [address] Performed By: #### 5 7021-8 ####[facility] LABCLIA [id number] [place] [address] Nucleated RBC (Bld) [#/Vol] 10*3/uL Normal <0.01 [facility] Comment on above: Order Comment: Speci men Type: BLOOD SPECIMENOrdering Facility: [facility] Address: [address] [place] [address] Performed By: #### 5 7021-8 ####[facility] LABCLIA [id number] [place] [address] Nucleated RBC/100 WBC (Bld) [Ratio] 0.0 /100 WBC Normal [facility] Comment on above: Order Comment: Speci men Type: BLOOD SPECIMENOrdering Facility: [facility] Address: [address] [place] [address] Performed By: #### 5 7021-8 ####[facility] LABCLIA [id number] [place] [address] Platelet mean volume (Bld) [Entitic vol] 9.4 fL Normal 9.0-12.7 [facility] Comment on above: Order Comment: Speci men Type: BLOOD SPECIMENOrdering Facility: [facility] Address: [address] [place] [address] Performed By: #### 5 7021-8 ####[facility] LABCLIA [id number] [place] [address] Platelets (Bld) [#/Vol] 209 10*3/uL Normal 150-400 [facility] Comment on above: Order Comment: Speci men Type: BLOOD SPECIMENOrdering Facility: [facility] Address: [address] [place] [address] Performed By: #### 5 7021-8 ####[facility] LABCLIA [id number] [place] [address] RBC (Bld) [#/Vol] 3.98 10*6/uL Low 4.20-6.00 [facility] Comment on above: Order Comment: Speci men Type: BLOOD SPECIMENOrdering Facility: [facility] Address: [address] [place] [address] Performed By: #### 5 7021-8 ####[facility] LABIA [id number] [place] [address] WBC (Bld) [#/Vol] 6.76 10*3/uL Normal 3.70-11.00 [facility] Comment on above: Order Comment: Speci men Type: BLOOD SPECIMENOrdering Facility: [facility] Address: [address] [place] [address] Performed By: #### 5 7021-8 ####[facility] LABIA [id number] [place] [address] CNNURSEon 07-26-2024 CNNURSE Nurse Visit (HEMASA) -- MARY DIAZ ([id number]) 1950 [facility] Date Time Provider Department 07/26/24 11:00 [...] - Cancer Wellness Program Pamphlet. YES - [address] [place] [address] Information. YES - Patient services information. YES - My Journey binder given to pt. Time Spent: 30 minutes REFERRAL (RECOMMENDATION): N/A Ingrid Ugalde, NATHALIE Trade Marker Pre Chemo Patient identified by name and date of . YES Confirmed date and time for chemotherapy ? YES Other appointments (labs, imaging) discussed? YES Discussed where to park (morning caregiver), charge for parking NO Discussed where to [...] Ingrid Ugalde RN Referring Provider: NORBERTO ANDRADE [[id number]] Allergies As of Date: 07/26/2024 Noted Allergy Reaction CODEINE 03/30/2017 2 - Rash Comments: Agitation, Doesn't work Date Reviewed: 07/19/2024 Reviewed by: Suzanna Waters MA - Fully Assessed Reason for Visit: First Time Treatment Education [3129] Primary Visit Diagnosis:Malignant neoplasm of urinary bladder, unspecified site (HCC) [C67.9] Prescriptions as of 07/26/2024 - methocarbamol 1, (more content not included)... Normal [facility] Comprehensive metabolic 2000 panelon 07-26-2024 Albumin [Mass/Vol] 4.2 g/dL Normal 3.9-4.9 [facility] Comment on above: Order Comment: Speci men Type: BLOOD SPECIMENOrdering Facility: [facility] Address: [address] [place] [address] Performed By: #### 2 4323-8 ####[facility] LABCLIA [id number] [place] [address] ALP [Catalytic activity/Vol] 55 U/L Normal 38-113 [facility] Comment on above: Order Comment: Speci men Type: BLOOD SPECIMENOrdering Facility: [facility] Address: [address] [place] [address] Performed By: #### 2 4323-8 ####[facility] LABCLIA [id number] [place] [address] ALT [Catalytic activity/Vol] 17 U/L Normal 10-54 [facility] Comment on above: Order Comment: Speci men Type: BLOOD SPECIMENOrdering Facility: [facility] Address: [address] [place] [address] Performed By: #### 2 4323-8 ####[facility] LABIA [id number] [place] [address] Anion gap [Moles/Vol] 8 mmol/L Normal 8-15 [facility] Comment on above: Order Comment: Speci men Type: BLOOD SPECIMENOrdering Facility: [facility] Address: [address] [place] [address] Performed By: #### 2 4323-8 ####[facility] LABCLIA [id number] [place] [address] AST [Catalytic activity/Vol] 14 U/L Normal 14-40 [facility] Comment on above: Order Comment: Speci men Type: BLOOD SPECIMENOrdering Facility: [facility] Address: [address] [place] [address] Performed By: #### 2 4323-8 ####[facility] LABCLIA [id number] [place] [address] Bilirubin [Mass/Vol] 0.5 mg/dL Normal 0.2-1.3 [facility] Comment on above: Order Comment: Speci men Type: BLOOD SPECIMENOrdering Facility: [facility] Address: [address] [place] [address] Performed By: #### 2 4323-8 ####[facility] LABCLIA [id number] [place] [address] Calcium [Mass/Vol] 9.5 mg/dL Normal 8.5-10.2 [facility] Comment on above: Order Comment: Speci men Type: BLOOD SPECIMENOrdering Facility: [facility] Address: [address] [place] [address] Performed By: #### 2 4323-8 ####[facility] LABCLIA [id number] [place] [address] Chloride [Moles/Vol] 101 mmol/L Normal 98-107 [facility] Comment on above: Order Comment: Speci men Type: BLOOD SPECIMENOrdering Facility: [facility] Address: [address] [place] [address] Performed By: #### 2 4323-8 ####[facility] LABCLIA [id number] [place] [address] CO2 [Moles/Vol] 26 mmol/L Normal 22-30 [facility] Comment on above: Order Comment: Speci men Type: BLOOD SPECIMENOrdering Facility: [facility] Address: [address] [place] [address] Performed By: #### 2 4323-8 ####[facility] LABCLIA [id number] [place] [address] Creatinine [Mass/Vol] 1.31 mg/dL High 0.73-1.22 [facility] Comment on above: Order Comment: Speci men Type: BLOOD SPECIMENOrdering Facility: [facility] Address: [address] [place] [address] Performed By: #### 2 4323-8 ####[facility] LABCLIA [id number] [place] [address] Creatinine and Glomerular filtration rate.predicted panel (S/P/Bld) 57 mL/min/1.73m??? Low >=60 [facility] Comment on above: Order Comment: Speci men Type: BLOOD SPECIMENOrdering Facility: [facility] Address: [address] [place] [address] Result Comment: Emely mated Glomerular Filtration Rate [...] actual GFR. Performed By: #### 2 4323-8 ####[facility] LABCLIA [id number] [place] [address] Glucose [Mass/Vol] 108 mg/dL High 74-99 [facility] Comment on above: Order Comment: Speci men Type: BLOOD SPECIMENOrdering Facility: [facility] Address: [address] [place] [address] Result Comment: The [place] Diabetes Association (ADA) provides guidance for cutoff [...] Standards of Medical Care in Diabetes 2016, [place] [employer]. Diabetes Care. 2016.39(Suppl 1). Performed By: #### 2 4323-8 ####[facility] LABCLIA [id number] [place] [address] Potassium [Moles/Vol] 4.5 mmol/L Normal 3.7-5.1 [facility] Comment on above: Order Comment: Speci men Type: BLOOD SPECIMENOrdering Facility: [facility] Address: [address] [place] [address] Performed By: #### 2 4323-8 ####[facility] LABCLIA [id number] [place] [address] Protein [Mass/Vol] 6.2 g/dL Low 6.3-8.0 [facility] Comment on above: Order Comment: Speci men Type: BLOOD SPECIMENOrdering Facility: [facility] Address: [address] [place] [address] Performed By: #### 2 4323-8 ####[facility] LABCLIA [id number] [place] [address] Sodium [Moles/Vol] 135 mmol/L Low 136-144 [facility] Comment on above: Order Comment: Speci men Type: BLOOD SPECIMENOrdering Facility: [facility] Address: [address] [place] [address] Performed By: #### 2 4323-8 ####[facility] LABCLIA [id number] [place] [address] Urea nitrogen [Mass/Vol] 17 mg/dL Normal 9-24 [facility] Comment on above: Order Comment: Speci men Type: BLOOD SPECIMENOrdering Facility: [facility] Address: [address] [place] [address] Performed By: #### 2 4323-8 ####[facility] LABIA [id number] [place] [address] CNOVSPon 07-19-2024 CNOVSP Visit (SP) Office (H EMASA) -- MARY DIAZ ([id number]) 1950 [facility] Date Time Provider Department 07/19/24 11:00 AM NORBERTO ANDRADE During your visit today, we recorded the following information about you: Temperature Pulse Respiration Blood pressure 97.2 degrees 81/minute 18/minute 121/74 Weight 86.7 kg Norberto Andrade MD 07/19/2024 11:42 AM Signed PATIENT NAME: Mary Diaz CLINIC NO.: [id number] ATTENDING PHYSICIAN: Norberto Andrade MD DATE OF SERVICE: July 19, [address] 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 - Urology recommended induction BCG x 6 treatments. - We will start him on weekly BCG treatments after 2 weeks from today - Check CBC CMP - All his questions answered in detail - F/u in [address] Lionel Whitney [address] [place] [address] thank you for allowing me to participate in Mary Diaz care, if there are any questions or concerns please do not hesitate to contact me at the number below. I spent a total of 60 pawan (more content not included)... Normal [facility] Ambulatory Visit Summaryon 0 07-12-2024 Ambulatory Visit [...] (diclofenac sodium 75 mg Oral EC Tab) fluticasone/umeclidinium/v ilanterol (Trelegy Ellipta 100 mcg-62.5 mcg-25 mcg inhalation [...] Lionel WHITNEY MD Where: [facility] [address] [place] [address]- You Need to Schedule the Following Appointments Follow Up with Lionel WHITNEY MD, URL When: Where: [facility] [address] [place] [address]- Medications What How Much When Instructions Unchanged [...] of bladd (more content not included)... 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 Mitomycin 03/26/22 and 04/20/22. TURBT 01/14/23 - Neg. Chronic inflammation and extensive necrosis. 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 Reviewed pathology with pt. Intravesical BCG recommended to help prevent tumor recurrence. EORTC 08823 trial showed no difference between 1/3 dose and full-dose BCG in patients with high-risk disease. Pt is aware of the reasoning and is amenable to proceed as discussed. Will likely need to refer to [facility] for BCG. Previously received mitomycin which is good for low grade bladder ca but not high grade. Follow up after below or sooner if needed. Pt understands and agrees with plan. -Refer to [facility] for induction BCG x 6 doses. Then [...] [facility] [address], [place] [address]- Additional Instructions: Refer to [facility] for induction BCG x 6 doses Patient [...] (05/2014), Complete (more content not included)... Normal [facility] Comment on above: Result Comment: Elec tronically Signed By: DEVONTE NOBLE, Lionel Burgos\.br\Date and Time Signed: 07/12/24 11:00 EST\.br\Electronically Co-Signed By: Liane Wheeler\.br\Date and Time Co-Signed: 07/12/24 10:59 EST Guillermo 07-06-2024 L ------ Specimen: [id number] Received: 07/07/24 Status: ZACKERY Cheng Num: [id number] Spec Type: Surgical Subm Dr: Lionel Whitney MD Tissues: A Urinary Bladder - TUR (BLADDER TUMOR) Procedures: FRANSICO, Gross/Eligio L5 Age/ Patient Sex Location Account Attending Physician EmilyMary sapp 74/M LABELL [id number] Lionel Whitney MD SPEC NUM: [id number] RECD: 07/07/24 STATUS: ZACKERY CHENG NUM: [id number] JOE: 07/06/24 [facility] DR: Lionel Whitney MD ENTERED: 07/07/[address] [facility] [address]: Cyndee Reilly SPEC TYPE: Surgical DEPT: KIANA HERNANDEZ ENTERED BY: [id number] RECV BY: [id number] ORDERED: HE, Gross/Micro L5 ORDERED: HE, Gross/Micro L5 Pathological Diagnosis Urinary bladder tumor, TURBT: -A small focus of borderline high-grade papillary urothelial carcinoma in at least 1 fragment, without obvious stromal invasion (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 (1, ns, [id number] A) YAMILKA Specimen: [id number] Received: 07/07/24 Status: ZACKERY Cheng Num: [id number] Spec Type: Surgical Subm Dr: Lionel Whitney MD Tissues: A Urinary Bladder - TUR (BLADDER TUMOR) Procedures: Kathy BATEMAN/Eligio L5 Patient: Mary Diaz [id number] (Continued) Specimen: [id number] Received: 07/07/24 (Continued) Signed (signature on file) Yordy Dixon MD 07/10/24 1627 Specimen: [id number] Received: 07/07/24 Status: ZACKERY Cheng Num: [id number] Spec Type: Surgical Subm Dr: Lionel Whitney MD Tissues: A Urinary Bladder - TUR (BLADDER TUMOR) Procedures: Kathy BATEMAN/Eligio L5 Patient: Mary Diaz [id number] (Continued) Specimen: [id number] Received: 07/07/24 (Continued) Microscopic Description Microscopic examinations are performed supporting the above interpretation CPT Codes 56048 Specimen: [id number] Received: 07/07/24 Status: ZACKERY Cheng Num: [id number] Spec Type: Surgical Subm Dr: Lionel Whitney MD Tissues: A Urinary Bladder - TUR (BLADDER TUMOR) Procedures: Kathy BATEMAN/Eligio L5 Patient: EmilyMary dixon [id number] (Continued) Signed (signature on file) Chin-Oscar Dixon MD 07/10/24 1627 [facility] TRANSTHORACIC ECHO (TTE) COM PLETEon 06-09-2024 TRANSTHORACIC ECHO (TTE) COMPLETE [address], [place] [address] TRANSTHORACIC ECHOCARDIOGRAM REPORT Patient Name: MARY Rogers EMILY Reading Physician: [id number] Rolly Michaels MD, [facility] Study Date: 06/09/2024 Ordering Provider: [id number] CADY ESPINOSA MRN/PID: [id number] Fellow: Nurse: Date of /Age: 8 1950 / 74 years Gas Torch Solderer: Alyse Arriaga RD, T Gender Assigned at Additional Staff: : Height: 182.88 cm Admit Date: Weight: 86.64 kg Admission Status: BSA / BMI: 2.09 m2 / 25.90 Department Location: [facility] kg/[address] Blood Pressure: 162 /82 mmHg Study Type: TRANSTHORACIC ECHO (TTE) COMPLETE Diagnosis/ICD: Shortness of breath-R06.02 Indication: HTN, Hyperlipidemia, Former Smoker, Asymetrical Upper Extremity Blood Pressures, History of Bladder and Prostate Cancer CPT Codes: Echo Complete w Full Doppler-17496 Study Detail: The following Echo studies were [...] mmHg PIEDV: 2.07 m/s PADP: 20.1 mmHg [id number] Rolly Michaels MD, FACC Electronically signed on 06/09/2024 at 4:40:40 PM Final Normal [facility] US Heart TransthoracicOrdere d By: Rolly Michaels on 06-09-2024 Aortic Valve Area by Continuity of Peak Velocity 2.99 cm2 [facility] Work Phone: Aortic Valve Area by Continuity of VTI 3.72 cm2 [facility] Work Phone: AV mn grad 4 mmHg [facility] Work Phone: 1414-4 300 AV pk grad 9 mmHg [facility] Work Phone: 1414-1 300 AV pk sedrick 1.47 m/s [facility] Work Phone: 1414-4 300 LV A4C EF 71.4 [facility] Work Phone: 1414-4 300 LV Biplane EF 68 % [facility] Work Phone: LV EF 63 % [facility] Work Phone: 1414-8 300 LVIDd 5.09 cm [facility] Work Phone: 1414-7 300 LVOT diam 2.5 cm [facility] Work Phone: 1414-1 300 MV avg E/e' ratio 6.2 [facility] Work Phone: 1414-7 300 MV E/A ratio 0.57 [facility] Work Phone: RVSP 30.2 mmHg [facility] Work Phone: [facility] Work Phone: Heart Transthoracicon [address], [address] [facility], [place] [address] TRANSTHORACIC ECHOCARDIOGRAM REPORT Patient Name: MARY Sue DIAZ Reading Physician: [id number] Rolly Michaels MD, [facility] Study Date: 06/09/2024 Ordering Provider: [id number] CADY ESPINOSA MRN/PID: [id number] Fellow: Nurse: Date of /Age: 8 1950 / 74 years Gas Torch Solderer: Alyse Arriaga RDCS, RVT Gender Assigned at Additional Staff: : Height: 182.88 cm Admit Date: Weight: 86.64 kg Admission Status: BSA / BMI: 2.09 m2 / 25.90 Department Location: [facility] kg/m2 [facility] [place] Blood Pressure: 162 /82 mmHg Study Type: TRANSTHORACIC ECHO (TTE) COMPLETE Diagnosis/ICD: Shortness of breath-R06.02 Indication: HTN, Hyperlipidemia, Former Smoker, Asymetrical Upper Extremity Blood Pressures, History of Bladder and Prostate Cancer CPT Codes: Echo Complete w Full Doppler-27040 Study Detail: The following Echo studies were [...] (1.7- (more content not included)... Rolly Lerner M D - 06/09/2024 [facility] [address] [facility], [address], [place] [address] TRANSTHORACIC ECHOCARDIOGRAM REPORT Patient Name: MARY Sue DIAZ Reading Physician: [id number] Rolly Michaels MD, [facility] Study Date: 06/09/2024 Ordering Provider: [id number] CADY ESPINOSA MRN/PID: [id number] Fellow: Nurse: Date of /Age: 8 1950 / 74 years Gas Torch Solderer: Alyse Arriaga RDCS, T Gender Assigned at Additional Staff: : Height: 182.88 cm Admit Date: Weight: 86.64 kg Admission Status: BSA / BMI: 2.09 m2 / 25.90 Department Location: [facility] kg/m2 [facility] [place] Blood Pressure: 162 /82 mmHg Study Type: TRANSTHORACIC ECHO (TTE) COMPLETE Diagnosis/ICD: Shortness of breath-R06.02 Indication: HTN, Hyperlipidemia, Former Smoker, Asymetrical Upper Extremity Blood Pressures, History of Bladder and Prostate Cancer CPT Codes: Echo Complete w Full Doppler-24296 Study Detail: The following Echo studies were [...] mmHg PIEDV: 2.07 m/s PADP: 20.1 mmHg [id number] Rolly Michaels MD, FACC Electronically signed on 06/09/2024 at 4:40:40 PM Final [facility] Work Phone: .doppler Carotid arteries - bilateralon 06-09-[address], [address] [facility], [place] [address] Vascular Lab Report VASC US CAROTID ARTERY DUPLEX BILATERAL Patient Name: MARY DIAZ Reading Physician: [id number] Rolly Michaels MD, [facility] Study Date: 06/09/2024 Ordering Provider: [id number] CADY ESPINOSA MRN/PID: [id number] Fellow: Technologist: Alyse Arriaga RD, T Date of /Age: 8 1950 / 74 years Technologist 2: Gender: M Admission Status: Outpatient Location Performed: [facility] Diagnosis/ICD: Other specified symptoms and signs involving the circulatory and respiratory systems-R09.89 Indication: Unequal Upper Extremity Blood Pressures, HTN, Hyperlipidemia, Former Smoker, History of Bladder and Prostate Cancer CPT Codes: 56323 Cerebrovascular Carotid Duplex scan complete CONCLUSIONS: Right [...] cm/s Right Left ICA/CCA Ratio 1.5 0.7 [id number] Rolly Michaels MD, FACC Final Rolly Lerner M D - 06/09/[address], [address], [place] [address] Vascular Lab Report [facility] US CAROTID ARTERY DUPLEX BILATERAL Patient Name: MARY Ahn Physician: [id number] Rolly Michaels MD, FAC Study Date: 06/09/2024 Ordering Provider: [id number] CADY ESPINOSA MRN/PID: [id number] Fellow: Technologist: Alyse Arriaga [facility] Date of /Age: 8 1950 / 74 years Technologist 2: Gender: M Admission Status: Outpatient Location Performed: [facility] Diagnosis/ICD: Other specified symptoms and signs involving the circulatory and respiratory systems-R09.89 Indication: Unequal Upper Extremity Blood Pressures, HTN, Hyperlipidemia, Former Smoker, History of Bladder and Prostate Cancer CPT Codes: 68856 Cerebrovascular Carotid Duplex scan complete CONCLUSIONS: Right [...] cm/s Right Left ICA/CCA Ratio 1.5 0.7 [id number] Rolly Michaels MD, FAC Final [facility] Work Phone: Radiology Study observation (narrative) [facility] Work Phone: US.doppler Carotid arteries - bilateralOrdered By: Rolly Michaels on 06-09-2024 [facility] Work Phone: [facility] US CAROTID ARTERY DUPLE X BILATERALon 06-09-2024 [facility] US CAROTID ARTERY DUPLEX BILATERAL [address], [address] [place] [address] Vascular Lab Report [facility] US CAROTID ARTERY DUPLEX BILATERAL Patient Name: MARY Ahn Physician: [id number] Rolly Michaels MD, FAC Study Date: 06/09/2024 Ordering Provider: [id number] CADY ESPINOSA MRN/PID: [id number] Fellow: Technologist: Alyse Arriaga [facility], T Date of /Age: 8 1950 / 74 years Technologist 2: Gender: M Admission Status: Outpatient Location Performed: [facility] Diagnosis/ICD: Other specified symptoms and signs involving the circulatory and respiratory systems-R09.89 Indication: Unequal Upper Extremity Blood Pressures, HTN, Hyperlipidemia, Former Smoker, History of Bladder and Prostate Cancer CPT Codes: 92521 Cerebrovascular Carotid Duplex scan complete CONCLUSIONS: Right [...] cm/s Right Left ICA/CCA Ratio 1.5 0.7 [id number] Rolly Michaels MD, FACC Final Normal [facility] Urine Cytology ([facility])on 07-30-2023 Microscopic exam Cytology (U) [Interp] Diagnosis Info Invalid Interpretation Code [facility] Comment on above: Result Comment: A:Ur ine,Urine:Voided Interpretation - Occasional atypical urothelial cells with degenerative changes. CPT 37376 MicroScopic Description - Adequacy - Gross Description Site ID:A color Yellow fixative Alcohol Specimen designated Urine received in alcohol preservative and labeled with the patient???s name, consists of 40ml clear yellow fluid. Electronically signed by : on: 05/29/2024 13:16:19 Performed By: #### 1 [id number] #### [facility] [address] [place] [address] Urine Cytology ([facility])on 07-23-2023 Method of Extraction Voided Normal [facility] Comment on above: Performed By: #### 1 [id number] #### [facility] [address] [place] [address] Number of Jars 1 Invalid Interpretation Code [facility] Comment on above: Performed By: #### 1 [id number] #### [facility] [address] [place] [address] Specimen Urine Normal [facility] Comment on above: Performed By: #### 1 [id number] #### [facility] [address] [place] [address] UC Type of Service Technical Only Normal [facility] Comment on above: Performed By: #### 1 [id number] #### [facility] [address] [place] [address] [facility] Fish and Urine Cyt o ([facility])on 05-15-2024 [facility] Diagnosis Info Invalid Interpretation Code [facility] Comment on above: Result Comment: Rodrick s Description Electronically signed by : on: 05/15/2024 11:58:17 Performed By: #### 1 [id number] #### [facility] [address] [place] [address] Main OR Intraoperative Recor don 05-09-2024 Main OR Intraoperative Record Main OR Intraoperative Record IntraOp Document Type FTURO Summary Primary Physician: Lionel WHITNEY MD Finalized Date/Time: 05/09/24 09:43:24 Pt. Name: MARY DIAZ /Sex: 1950 Male Med Rec #: [id number] Physician: Lionel WHITNEY MD Financial #: [id number] Pt. Type: O Room/Bed: / Admit/Disch: 05/09/24 [...] Nanci Bellamy Role Performed Surgeon - Primary Silver Service Waiter - Primary Scrub - Primary Time In [...] Yes PROSTATE CANCERS Last Modified By: Frances yBrnes RN 05/09/24 09:26:44 Post-Care Text: The patient [...] By: Frances Byrnes RN 05/09/24 09:43 Normal [facility] Main OR Preoperative Recordo n 05-09-2024 Main OR Preoperative Record Main OR Preoperative Record Holding Area Document Type FTURO Summary Primary Physician: Lionel WHITNEY MD Finalized Date/Time: 05/09/24 09:28:03 Pt. Name: EMILY MARY Leong./Sex: 1950 Male Med Rec #: [id number] Physician: Lionel WHITNEY MD Financial #: [id number] Pt. Type: O Room/Bed: / Admit/Disch: 05/09/24 [...] Complaints of Pain: No Skin Integrity Intact, Norco, Warm, & Dry Vitals - EU Blood Pressure 190/90 Pulse 78 bpm Respirations 18 br/min SPO2 96 % Additional JIM ZELAYA Reviewed Yes Specimens Collected Last Modified By: Frances Byrnes RN 05/09/24 09:28:01 Finalized By: Frances Byrnes RN Document Signatures Signed By: Esther Boyd LPN 05/09/24 09:10 Frances Byrnes RN P 05/09/24 09:28 Normal [facility] Operative Reporton Operative Report Operative Report Patient: MARY DIAZ Age: 74 years Sex: Male : 1950 Associated Diagnoses: None Author: Lionel WHITNEY MD Procedure Operative Information Details: Date/ Time: 05/09/2024 09:47:00. Pre-Op Dx: Hx of Bladder CA - Z85.51. Post-Op Dx: Same. Anesthesia Type: Local. Procedure: Local Cystoscopy. Complications: None. Risks/Benefits/Informed Consent: Surgical risks, benefits, details of the [...] with antibiotic coverage, Follow up arranged. Normal [facility] Comment on above: Result Comment: Elec tronically Signed By: Lionel WHITNEY MD\.br\Date and Time Signed: 05/09/24 09:48 EST [facility] Fish and Urine Cyt o ([facility])on 05-09-2024 [facility] Method of Extraction Voided Normal [facility] Comment on above: Performed By: #### 1 [id number] #### [facility] [address] [place] [address] [facility] Number of Jars 1 Invalid Interpretation Code [facility] Comment on above: Performed By: #### 1 [id number] #### [facility] [address] [place] [address] [facility] Specimen Urine Normal [facility] Comment on above: Performed By: #### 1 [id number] #### [facility] [address] [place] [address] [facility] Type of Service Technical Only Normal [facility] Comment on above: Performed By: #### 1 [id number] #### [facility] [address] [place] [address] ECG 12 Leadon 05-08-2024 [facility] Work Phone: MR cervical spine wo/w conon 08-29-2023 MR cervical spine wo/w con [facility] Main [place] [address] [place], [place] [id number] MRI Report Signed Patient: Mary Diaz MR#: [id number] : 1950 Acct:[id number] Age/Sex: 73 / M ADM Date: 08/28/23 Loc: MR Room: Type: [facility] Attending Dr: Esther HILTON Copies [...] Lupe Campos M.D.08/29/2023 1:06 PM Dictation Location: [place] [address] Transcribed By: [facility] 08/29/23 1306 Dictated By: Lupe Campos MD 08/29/23 1254 Signed By: 08/29/23 1306 Normal [facility] ISTAT XRay CREon 08-28-2023 ISTAT GFR > 60.0 Normal [facility] Comment on above: Result Comment: PERF ORMED BY: [place] [address] PATHOLOGIST [employer]ER JENARO FLOREZ M.D. Performed By: #### I SCRE #### [address] No Panel InformationOrdered By: Esther Lowery on 08-28-2023 Bedside Estimated GFR (eGFR) > 60.0 [facility] Whole blood creatinine measu rementOrdered By: Esther Lowery on 08-28-2023 Creatinine [Mass/Vol] 1.2 mg/dL Normal 0.6-1.3 [facility] Comment on above: ER/ESD physician is notified/shown all ISTAT results.Critical values may be confirmed by laboratory testing ifdeemed necessary by ER attending doctor. Result Comment: ER/E [place] physician is notified/shown all ISTAT results. Critical values may be confirmed by laboratory testing if deemed necessary by ER attending doctor. Performed By: #### I SCRE #### [facility] [address] XR cervical spine LAT/FLX/EX Ton 08-12-2023 XR cervical spine LAT/FLX/EXT [facility] [place] [address] [place] [address] XRay Report Signed Patient: Mary Diaz MR#: [id number] : 1950 Acct:[id number] Age/Sex: 73 / M ADM Date: 08/12/23 Loc: Room: Type: [facility] Attending Dr: Esther BASILIOC Copies to: LIDA [...] Kenny Leahy M.D.08/12/2023 3:29 PM Dictation Location: [place] [address] Transcribed By: [facility] 08/12/23 1529 Dictated By: Kenny Leahy DO 08/12/23 1528 Signed By: 08/12/23 1529 Normal [facility] XR lumbar spine 6V w bending on 08-12-2023 XR lumbar spine 6V w bending [facility] [place] [address] [place] [address] XRay Report Signed Patient: Mary Diaz MR#: [id number] : 1950 Acct:[id number] Age/Sex: 73 / M ADM Date: 08/12/23 Loc: XD Room: Type: [facility] Attending Dr: Esther BASILIOC Copies to: LIDA [...] S1 degenerative change. SOFT TISSUES: Atherosclerosis. BONY MINERALIZATION:Adequate XR/XR lumbar spine 6V w bending IMPRESSION: No hypermobility. Extensive lower lumbar degenerative changes redemonstrated. Impression dictated by: Kenny Leahy M.D.08/12/2023 3:28 PM Dictation Location: [place] [address] Transcribed By: [facility] 08/12/23 1528 Dictated By: Kenny Leahy DO 08/12/23 1526 Signed By: 08/12/23 1528 Normal [facility] XR CSPINE MIN 4 VIEWSon [...] ALLI CORTES Date: 2022-10-23 11:53 Normal [facility] XR LSPINE W_OBLS AND FLEX_EX Ton [...] [place] GONZALEZ Date: 2022-10-23 13:18 Normal [facility] BNPon 10-06-2022 Natriuretic peptide B (Bld) [Mass/Vol] 844.0 pg/mL Normal <=900.0 [facility] Comment on above: Performed By: #### C VDTB #### [facility] [address] [place] [address] Dr. Johnna Dixon CBC AUTO DIFFon 10-06-2022 BASO # 0.0 103/ul Normal 0.0-0.1 [facility] Comment on above: Performed By: #### C BC #### [facility] [address] [place] [address] Dr. Johnna Dixon Basophils/100 WBC (Bld) 0.0 % Critically low 0.2-2.0 [facility] Comment on above: Performed By: #### C BC #### [facility] [address] [place] [address] Dr. Johnna Dixon EO # 0.0 103/ul Normal 0.0-0.7 [facility] Comment on above: Performed By: #### C BC #### [facility] [address] [place] [address] Dr. Johnna Dixon Eosinophils/100 WBC (Bld) 0.0 % Critically low 0.9-7.0 [facility] Comment on above: Performed By: #### C BC #### [facility] [address] [place] [address] Dr. Johnna Dixon Erythrocyte distribution width (RBC) [Ratio] 13.9 % Normal 11.0-15.0 [facility] Comment on above: Performed By: #### C BC #### [facility] [address] [place] [address] Dr. Johnna Dixon Hematocrit (Bld) [Volume fraction] 33.6 % Critically low 42.0-54.0 [facility] Comment on above: Performed By: #### C BC #### [facility] [address] [place] [address] Dr. Johnna Dixon Hemoglobin (Bld) [Mass/Vol] 11.1 g/dL Critically low 14.0-18.0 [facility] Comment on above: Performed By: #### C BC #### [facility] [address] [place] [address] Dr. Johnna Dixon IG # 0.03 10e3/ul Normal 0.00-0.03 [facility] Comment on above: Performed By: #### C BC #### [facility] [address] [place] [address] Dr. Johnna Dixon IG % 0.5 % Normal 0.0-0.5 [facility] Comment on above: Performed By: #### C BC #### [facility] [address] [place] [address] Dr. Johnna Dixon LYMPH # 0.7 103/ul Critically low 1.2-3.8 [facility] Comment on above: Performed By: #### C BC #### [facility] [address] [place] [address] Dr. Johnna Dixon Lymphocytes/100 WBC (Bld) 11.5 % Critically low 20.5-60.0 [facility] Comment on above: Performed By: #### C BC #### [facility] [address] [place] [address] Dr. Johnna Dixon MANUAL DIFF REQ NO Normal [facility] Comment on above: Performed By: #### C BC #### [facility] [address] [place] [address] Dr. Johnna Dixon MCH (RBC) [Entitic mass] 31.0 pg Normal 25.9-34.0 [facility] Comment on above: Performed By: #### C BC #### [facility] [address] [place] [address] Dr. Johnna Dixon MCHC (RBC) [Mass/Vol] 33.0 g/dL Normal 29.9-35.2 [facility] Comment on above: Performed By: #### C BC #### [facility] [address] [place] [address] Dr. Johnna Dixon MCV (RBC) [Entitic vol] 93.9 fL Normal 80.0-94.0 [facility] Comment on above: Performed By: #### C BC #### [facility] [address] [place] [address] Dr. Johnna Dixon MONO # 0.3 103/ul Normal 0.3-0.8 [facility] Comment on above: Performed By: #### C BC #### [facility] [address] [place] [address] Dr. Johnna Dixon Monocytes/100 WBC (Bld) 4.5 % Normal 1.7-12.0 [facility] Comment on above: Performed By: #### C BC #### [facility] [address] [place] [address] Dr. Johnna Dixon NEUT # 5.0 103/ul Normal 1.4-6.5 [facility] Comment on above: Performed By: #### C BC #### [facility] [address] [place] [address] Dr. Johnna Dixon Neutrophils/100 WBC (Bld) 83.5 % Critically high 43.0-75.0 [facility] Comment on above: Performed By: #### C BC #### [facility] [address] [place] [address] Dr. Johnna Dixon Platelet mean volume (Bld) [Entitic vol] 10.3 fL Normal 9.5-13.5 [facility] Comment on above: Performed By: #### C BC #### [facility] [address] [place] [address] [address] Johnna Dixon PLT 184 103/ul Normal 150-450 [facility] Comment on above: Performed By: #### C BC #### [facility] [address] [place] [address] Dr. Johnna Dixon RBC 3.58 106/ul Critically low 4.70-6.10 [facility] Comment on above: Performed By: #### C BC #### [facility] [address] [place] [address] Dr. Johnna Dixon WBC 6.0 103/ul Normal 4.0-11.0 [facility] Comment on above: Performed By: #### C BC #### [facility] [address] [place] [address] Dr. Johnna Dixon PROF 14(COMP METB)on 023 Albumin [Mass/Vol] 2.7 g/dL Critically low 3.4-5.[address] [facility] Comment on above: Performed By: #### C VDTBH #### [facility] [address] [place] [address] Dr. Johnna Dixon Albumin/Globulin [Mass ratio] 0.9 {ratio} Normal [facility] Comment on above: Performed By: #### C VDTBH #### [facility] [address] [place] [address] Dr. Johnna Dixon ALP [Catalytic activity/Vol] 32 U/L Critically low 46-116 [facility] Comment on above: Performed By: #### C VDTBH #### [facility] [address] [place] [address] Dr. Johnna Dixon ALT [Catalytic activity/Vol] 19 U/L Normal 16-63 [facility] Comment on above: Performed By: #### C VDTBH #### [facility] [address] [place] [address] Dr. Johnna Dixon Anion gap [Moles/Vol] 14.0 mmol/L Normal [facility] Comment on above: Performed By: #### C VDTBH #### [facility] [address] [place] [address] [address] Johnna Dixon AST [Catalytic activity/Vol] 12 U/L Critically low 15-37 [facility] Comment on above: Performed By: #### C VDTBH #### [facility] [address] [place] [address] Dr. Johnna Dixon Bilirubin [Mass/Vol] 0.6 mg/dL Normal 0.2-1.0 [facility] Comment on above: Performed By: #### C VDTBH #### [facility] [address] [place] [address] Dr. Johnna Dixon Calcium [Mass/Vol] 8.3 mg/dL Critically low 8.5-10.1 [facility] Comment on above: Performed By: #### C VDTBH #### [facility] [address] [place] [address] Dr. Johnna Dixon Chloride [Moles/Vol] 107 mmol/L Normal 98-107 [facility] Comment on above: Performed By: #### C VDTBH #### [facility] [address] [place] [address] Dr. Johnna Dixon CO2 [Moles/Vol] 24.9 mmol/L Normal 21.0-32.0 [facility] Comment on above: Performed By: #### C VDTBH #### [facility] [address] [place] [address] Dr. Johnna Dixon Creatinine [Mass/Vol] 1.20 mg/dL Normal 0.70-1.30 [facility] Comment on above: Performed By: #### C VDTBH #### [facility] [address] [place] [address] Dr. Johnna Dixon EGFR-AF KITTITIAN >60 Normal >=60 [facility] Comment on above: Performed By: #### C VDTBH #### [facility] [address] [place] [address] Dr. Johnna Dixon EGFR-NON AF KITTITIAN 60 mL/min/1.73m2 Normal >=60 [facility] Comment on above: Performed By: #### C VDTBH #### [facility] [address] [place] [address] [address] Johnna Dixon Globulin (S) [Mass/Vol] 2.9 g/dL Normal [facility] Comment on above: Performed By: #### C VDTBH #### [facility] [address] [place] [address] Dr. Johnna Dixon Glucose [Mass/Vol] 153 mg/dL Critically high 74-106 [facility] Comment on above: Performed By: #### C VDTBH #### [facility] [address] [place] [address] Dr. Johnna Dixon Potassium [Moles/Vol] 3.9 mmol/L Normal 3.5-5.1 [facility] Comment on above: Performed By: #### C VDTBH #### [facility] [address] [place] [address] Dr. Johnna Dixon Protein [Mass/Vol] 5.6 g/dL Critically low 6.4-8.2 [facility] Comment on above: Performed By: #### C VDTBH #### [facility] [address] [place] [address] Dr. Johnna Dixon Sodium [Moles/Vol] 142 mmol/L Normal 136-145 [facility] Comment on above: Performed By: #### C VDTBH #### [facility] [address] [place] [address] Dr. Johnna Dixon Urea nitrogen [Mass/Vol] 14.0 mg/dL Normal 7.0-18.0 [facility] Comment on above: Performed By: #### C VDTBH #### [facility] [address] [place] [address] Dr. Johnna Dixon Urea nitrogen/Creatinine [Mass ratio] 11.7 mg/mg Normal [facility] Comment on above: Performed By: #### C VDTBH #### [facility] [address] [place] [address] Dr. Johnna Dixon CBC AUTO DIFFon 10-05-2022 BASO # 0.0 103/ul Normal 0.0-0.1 [facility] Comment on above: Performed By: #### S PUTGS #### [facility] [address] [place] [address] Dr. Johnna Dixon Basophils/100 WBC (Bld) 0.2 % Normal 0.2-2.0 [facility] Comment on above: Performed By: #### S PUTGS #### [facility] [address] [place] [address] Dr. Johnna Dixon EO # 0.0 103/ul Normal 0.0-0.7 [facility] Comment on above: Performed By: #### S PUTGS #### [facility] [address] [place] [address] Dr. Johnna Dixon Eosinophils/100 WBC (Bld) 0.2 % Critically low 0.9-7.0 [facility] Comment on above: Performed By: #### S PUTGS #### [facility] [address] [place] [address] Dr. Johnna Dixon Erythrocyte distribution width (RBC) [Ratio] 14.1 % Normal 11.0-15.0 [facility] Comment on above: Performed By: #### S PUTGS #### [facility] [address] [place] [address] Dr. Johnna Dixon Hematocrit (Bld) [Volume fraction] 39.9 % Critically low 42.0-54.0 [facility] Comment on above: Performed By: #### S PUTGS #### [facility] [address] [place] [address] Dr. Johnna Dixon Hemoglobin (Bld) [Mass/Vol] 12.8 g/dL Critically low 14.0-18.0 [facility] Comment on above: Performed By: #### S PUTGS #### [facility] [address] [place] [address] Dr. Johnna Dixon IG # 0.01 10e3/ul Normal 0.00-0.03 [facility] Comment on above: Performed By: #### S PUTGS #### [facility] [address] [place] [address] Dr. Johnna Dixon IG % 0.2 % Normal 0.0-0.5 [facility] Comment on above: Performed By: #### S PUTGS #### [facility] [address] [place] [address] [address] Johnna Dixon LYMPH # 0.7 103/ul Critically low 1.2-3.8 [facility] Comment on above: Performed By: #### S PUTGS #### [facility] [address] [place] [address] Dr. Johnna Dixon Lymphocytes/100 WBC (Bld) 14.3 % Critically low 20.5-60.0 [facility] Comment on above: Performed By: #### S PUTGS #### [facility] [address] [place] [address] Dr. Johnna Dixon MANUAL DIFF REQ NO Normal [facility] Comment on above: Performed By: #### S PUTGS #### [facility] [address] [place] [address] Dr. Johnna Dixon MCH (RBC) [Entitic mass] 30.7 pg Normal 25.9-34.0 [facility] Comment on above: Performed By: #### S PUTGS #### [facility] [address] [place] [address] Dr. Johnna Dixon MCHC (RBC) [Mass/Vol] 32.1 g/dL Normal 29.9-35.2 [facility] Comment on above: Performed By: #### S PUTGS #### [facility] [address] [place] [address] Dr. Johnna Dixon MCV (RBC) [Entitic vol] 95.7 fL Critically high 80.0-94.0 [facility] Comment on above: Performed By: #### S PUTGS #### [facility] [address] [place] [address] Dr. Johnna Dixon MONO # 0.6 103/ul Normal 0.3-0.8 [facility] Comment on above: Performed By: #### S PUTGS #### [facility] [address] [place] [address] Dr. Johnna Dixon Monocytes/100 WBC (Bld) 12.5 % Critically high 1.7-12.0 [facility] Comment on above: Performed By: #### S PUTGS #### [facility] [address] [place] [address] [address] Johnna Dixon NEUT # 3.6 103/ul Normal 1.4-6.5 [facility] Comment on above: Performed By: #### S PUTGS #### [facility] [address] [place] [address] Dr. Johnna Dixon Neutrophils/100 WBC (Bld) 72.6 % Normal 43.0-75.0 [facility] Comment on above: Performed By: #### S PUTGS #### [facility] [address] [place] [address] Dr. Johnna Dixon Platelet mean volume (Bld) [Entitic vol] 9.5 fL Normal 9.5-13.5 [facility] Comment on above: Performed By: #### S PUTGS #### [facility] [address] [place] [address] Dr. Johnna Dixon PLT 213 103/ul Normal 150-450 [facility] Comment on above: Performed By: #### S PUTGS #### [facility] [address] [place] [address] Dr. Johnna Dixon RBC 4.17 106/ul Critically low 4.70-6.10 [facility] Comment on above: Performed By: #### S PUTGS #### [facility] [address] [place] [address] Dr. Johnna Dixon WBC 5.0 103/ul Normal 4.0-11.0 [facility] Comment on above: Performed By: #### S PUTGS #### [facility] [address] [place] [address] Dr. Johnna Dixon CULTURE BLOODon 10-05-2022 Microscopic examination of blood, culture Culture Observations: NO GROWTH AT 5 DAYS. Normal [facility] Comment on above: Performed By: #### B LDCX2 #### [facility] [address] [place] [address] Dr. Johnna Dixon Microscopic examination of blood, culture Culture Observations: NO GROWTH AT 5 DAYS. Normal [facility] Comment on above: Performed By: #### S PUTGS #### [facility] [address] [place] [address] Dr. Johnna Dixon CULTURE SPUTUMon 10-05-2022 CULTURE SPUTUM Culture Observations : NORMAL RESPIRATORY JONATAN. Normal [facility] Comment on above: Performed By: #### S PUTGS #### [facility] [address] [place] [address] Dr. Johnna Dixon Covid-19 PCR ([facility])on 09-19 SARS-CoV-2 (COVID-19) RNA REX+probe Ql [...] for this test is supported by the [place] of Health and Human Service's (HHS's) declaration [...] SARS-CoV-2. Performed By: #### C VDTBH #### [facility] [address] [place] [address] Dr. Johnna Dixon LACTATE/LACTIC ACIDon 2022 Lactate [Moles/Vol] 1.2 mmol/L Normal 0.4-2.0 [facility] Comment on above: Performed By: #### L ACT #### [facility] [address] [place] [address] Dr. Johnna Dixon Lactate [Moles/Vol] 2.4 mmol/L Critically high 0.4-2.0 [facility] Comment on above: Performed By: #### L ACT #### [facility] [address] [place] [address] [address] Johnna Dixon PROF CHEM 8 (BAS METB)on Anion gap [Moles/Vol] 12.6 mmol/L Normal [facility] Comment on above: Performed By: #### B MP #### [facility] [address] [place] [address] [address] Johnna Dixon Calcium [Mass/Vol] 8.9 mg/dL Normal 8.5-10.1 [facility] Comment on above: Performed By: #### B MP #### [facility] [address] [place] [address] [address] Johnna Dixon Chloride [Moles/Vol] 106 mmol/L Normal 98-107 [facility] Comment on above: Performed By: #### B MP #### [facility] [address] [place] [address] Dr. Johnna Dixon CO2 [Moles/Vol] 25.8 mmol/L Normal 21.0-32.0 [facility] Comment on above: Performed By: #### B MP #### [facility] [address] [place] [address] [address] Johnna Dixon Creatinine [Mass/Vol] 1.41 mg/dL Critically high 0.70-1.30 [facility] Comment on above: Performed By: #### B MP #### [facility] [address] [place] [address] [address] Johnna Dixon EGFR-AF KITTITIAN >60 Normal >=60 [facility] Comment on above: Performed By: #### B MP #### [facility] [address] [place] [address] [address] Johnna Dixon EGFR-NON AF KITTITIAN 50 mL/min/1.73m2 Critically low >=60 [facility] Comment on above: Performed By: #### B MP #### [facility] [address] [address] [address] Johnna Dixon Glucose [Mass/Vol] 111 mg/dL Critically high 74-106 [facility] Comment on above: Performed By: #### B MP #### [facility] [address] [address] [address] Johnna Dixon Potassium [Moles/Vol] 3.4 mmol/L Critically low 3.5-5.1 [facility] Comment on above: Performed By: #### B MP #### [facility] [address] [place] [address] [address] Johnna Dixon Sodium [Moles/Vol] 141 mmol/L Normal 136-145 [facility] Comment on above: Performed By: #### B MP #### [facility] [address] [address] [address] Johnna Dixon Urea nitrogen [Mass/Vol] 17.0 mg/dL Normal 7.0-18.0 [facility] Comment on above: Performed By: #### B MP #### [facility] [address] [address] [address] Johnna Dixon Urea nitrogen/Creatinine [Mass ratio] 12.1 mg/mg Normal [facility] Comment on above: Performed By: #### B MP #### [facility] [address] [address] [address] Johnna Dixon SPUTUM GRAM STAINon 10-06-19 COMMENTS Normal [facility] Comment on above: Performed By: #### S PUTGS #### [facility] [address] [place] [address] Dr. Johnna Dixon DIPHTHEROIDS Normal [facility] Comment on above: Performed By: #### S PUTGS #### [facility] [address] [address] [address] Johnna Dixon EPITHELIALS <25 Normal [facility] Comment on above: Performed By: #### S PUTGS #### [facility] [address] [address] [address] Johnna Dixon FUNGAL ELEMENTS Normal [facility] Comment on above: Performed By: #### S PUTGS #### [facility] [address] [address] [address] Johnna Dixon GRAM NEG BACILLI FEW Normal [facility] Comment on above: Performed By: #### S PUTGS #### [facility] [address] [place] [address] Dr. Johnna Dixon GRAM NEG DIPPLOCOCCI Normal [facility] Comment on above: Performed By: #### S PUTGS #### [facility] [address] [place] [address] Dr. Johnna Dixon GRAM POS BACILLI Normal [facility] Comment on above: Performed By: #### S PUTGS #### [facility] [address] [place] [address] Dr. Johnna Dixon GRAM POSITIVE COCCI FEW Normal [facility] Comment on above: Performed By: #### S PUTGS #### [facility] [address] [place] [address] Dr. Johnna Dixon WBC (Bld) [#/Vol] 10*3/uL Normal [facility] Comment on above: Performed By: #### S PUTGS #### [facility] [address] [place] [address] Dr. Johnna Dixon SYMPTOMATIC COVID-19 ANTIGEN on 10-05-2022 EUA Statement SEE BELOW Normal [facility] Comment [...] VDAGS #### [facility] [address] [place] [address] Dr. Johnna Dixon SARS-CoV-2 (COVID-19) RNA REX+probe Ql (Unsp spec) Negative Normal NEGATIVE [facility] Comment on above: Performed By: #### C VDAGS #### [facility] [address] [place], [place] [address] Dr. Johnna Dixon XR CHEST 1 Von [...] #### [facility] [address] [place], [place] [address] Dr. Johnna Dixon CBC AUTO DIFFon 09-21-2022 BASO # 0.0 103/ul Normal 0.0-0.1 [facility] Comment on above: Performed By: #### C VDTBH #### [facility] [address] [place] [address] Dr. Johnna Dixon Basophils/100 WBC (Bld) 0.5 % Normal 0.2-2.0 [facility] Comment on above: Performed By: #### C VDTBH #### [facility] [address] [place] [address] Dr. Johnna Dixon EO # 0.1 103/ul Normal 0.0-0.7 [facility] Comment on above: Performed By: #### C VDTBH #### [facility] [address] [place] [address] Dr. Johnna Dixon Eosinophils/100 WBC (Bld) 1.9 % Normal 0.9-7.0 [facility] Comment on above: Performed By: #### C VDTBH #### [facility] [address] [place] [address] Dr. Johnna Dixon Erythrocyte distribution width (RBC) [Ratio] 14.5 % Normal 11.0-15.0 [facility] Comment on above: Performed By: #### C VDTBH #### [facility] [address] [place] [address] Dr. Johnna Dixon Hematocrit (Bld) [Volume fraction] 39.1 % Critically low 42.0-54.0 [facility] Comment on above: Performed By: #### C VDTBH #### [facility] [address] [place] [address] Dr. Johnna Dixon Hemoglobin (Bld) [Mass/Vol] 12.8 g/dL Critically low 14.0-18.0 [facility] Comment on above: Performed By: #### C VDTBH #### [facility] [address] [place] [address] Dr. Johnna Dixon IG # 0.05 10e3/ul Critically high 0.00-0.03 [facility] Comment on above: Performed By: #### C VDTBH #### [facility] [address] [place] [address] Dr. Johnna Dixon IG % 0.7 % Critically high 0.0-0.5 [facility] Comment on above: Performed By: #### C VDTBH #### [facility] [address] [place] [address] Dr. Johnna Dixon LYMPH # 2.0 103/ul Normal 1.2-3.8 [facility] Comment on above: Performed By: #### C VDTBH #### [facility] [address] [place] [address] Dr. Johnna Dixon Lymphocytes/100 WBC (Bld) 27.4 % Normal 20.5-60.0 [facility] Comment on above: Performed By: #### C VDTBH #### [facility] [address] [place] [address] Dr. Johnna Dixon MANUAL DIFF REQ NO Normal [facility] Comment on above: Performed By: #### C VDTBH #### [facility] [address] [place] [address] Dr. Johnna Dixon MCH (RBC) [Entitic mass] 31.3 pg Normal 25.9-34.0 [facility] Comment on above: Performed By: #### C VDTBH #### [facility] [address] [place] [address] Dr. Johnna Dixon MCHC (RBC) [Mass/Vol] 32.7 g/dL Normal 29.9-35.2 [facility] Comment on above: Performed By: #### C VDTBH #### [facility] [address] [place] [address] Dr. Johnna Dixon MCV (RBC) [Entitic vol] 95.6 fL Critically high 80.0-94.0 [facility] Comment on above: Performed By: #### C VDTBH #### [facility] [address] [place] [address] Dr. Johnna Dixon MONO # 0.5 103/ul Normal 0.3-0.8 [facility] Comment on above: Performed By: #### C VDTBH #### [facility] [address] [address] [address] Johnna Dixon Monocytes/100 WBC (Bld) 6.9 % Normal 1.7-12.0 [facility] Comment on above: Performed By: #### C VDTBH #### [facility] [address] [place] [address] Dr. Johnna Dixon NEUT # 4.7 103/ul Normal 1.4-6.5 [facility] Comment on above: Performed By: #### C VDTBH #### [facility] [address] [place] [address] Dr. Johnna Dixon Neutrophils/100 WBC (Bld) 62.6 % Normal 43.0-75.0 [facility] Comment on above: Performed By: #### C VDTBH #### [facility] [address] [place] [address] Dr. Johnna Dixon Platelet mean volume (Bld) [Entitic vol] 9.3 fL Critically low 9.5-13.5 [facility] Comment on above: Performed By: #### C VDTBH #### [facility] [address] [place] [address] Dr. Johnna Dixon PLT 235 103/ul Normal 150-450 [facility] Comment on above: Performed By: #### C VDTBH #### [facility] [address] [place] [address] Dr. Johnna Dixon RBC 4.09 106/ul Critically low 4.70-6.10 [facility] Comment on above: Performed By: #### C VDTBH #### [facility] [address] [place] [address] Dr. Johnna Dixon WBC 7.4 103/ul Normal 4.0-11.0 [facility] Comment on above: Performed By: #### C VDTBH #### [facility] [address] [place] [address] Dr. Johnna Dixon LIPASEon 09-21-2022 Lipase [Catalytic activity/Vol] 114.0 U/L Normal 73.0-393.0 [facility] Comment on above: Performed By: #### C VDAGS #### [facility] [address] [place] [address] Dr. Johnna Dixon LIVER PROFILEon 09-21-2022 Albumin [Mass/Vol] 3.9 g/dL Normal 3.4-5.0 [facility] Comment on above: Performed By: #### C VDTBH #### [facility] [address] [place] [address] Dr. Johnna Dixon Albumin/Globulin [Mass ratio] 1.6 {ratio} Normal [facility] Comment on above: Performed By: #### C VDTBH #### [facility] [address] [place] [address] Dr. Johnna Dixon ALP [Catalytic activity/Vol] 59 U/L Normal 46-116 [facility] Comment on above: Performed By: #### C VDTBH #### [facility] [address] [place] [address] Dr. Johnna Dixon ALT [Catalytic activity/Vol] 23 U/L Normal 16-63 [facility] Comment on above: Performed By: #### C VDTBH #### [facility] [address] [place] [address] Dr. Johnna Dixon AST [Catalytic activity/Vol] 8 U/L Critically low 15-37 [facility] Comment on above: Performed By: #### C VDTBH #### [facility] [address] [place] [address] Dr. Johnna Dixon BILI, CONJUGATED 0.1 mg/dL Normal 0.0-0.2 [facility] Comment on above: Performed By: #### C VDTBH #### [facility] [address] [place] [address] Dr. Johnna Dixon Bilirubin [Mass/Vol] 0.3 mg/dL Normal 0.2-1.0 [facility] Comment on above: Performed By: #### C VDTBH #### [facility] [address] [place] [address] Dr. Johnna Dixon Globulin (S) [Mass/Vol] 2.5 g/dL Normal [facility] Comment on above: Performed By: #### C VDTBH #### [facility] [address] [address] [address] Johnna Dixon Protein [Mass/Vol] 6.4 g/dL Normal 6.4-8.2 [facility] Comment on above: Performed By: #### C VDTBH #### [facility] [address] [address] [address] Johnna Dixon PROF CHEM 8 (BAS METB)on Anion gap [Moles/Vol] 13.4 mmol/L Normal [facility] Comment on above: Performed By: #### C VDTBH #### [facility] [address] [place] [address] Dr. Johnna Dixon Calcium [Mass/Vol] 8.9 mg/dL Normal 8.5-10.1 [facility] Comment on above: Performed By: #### C VDTBH #### [facility] [address] [place] [address] Dr. Johnna Dixon Chloride [Moles/Vol] 106 mmol/L Normal 98-107 [facility] Comment on above: Performed By: #### C VDTBH #### [facility] [address] [place] [address] Dr. Johnna Dixon CO2 [Moles/Vol] 25.6 mmol/L Normal 21.0-32.0 [facility] Comment on above: Performed By: #### C VDTBH #### [facility] [address] [place] [address] Dr. Johnna Dixon Creatinine [Mass/Vol] 1.21 mg/dL Normal 0.70-1.30 [facility] Comment on above: Performed By: #### C VDTBH #### [facility] [address] [place] [address] Dr. Johnna Dixon EGFR-AF KITTITIAN >60 Normal >=60 [facility] Comment on above: Performed By: #### C VDTBH #### [facility] [address] [place] [address] Dr. Johnna Dixon EGFR-NON AF KITTITIAN 59 mL/min/1.73m2 Critically low >=60 [facility] Comment on above: Performed By: #### C VDTBH #### [facility] [address] [address] [address] Johnna Dixon Glucose [Mass/Vol] 115 mg/dL Critically high 74-106 T [facility] Comment on above: Performed By: #### C VDTBH #### [facility] [address] [address] [address] Johnna Dixon Potassium [Moles/Vol] 4.0 mmol/L Normal 3.5-5.1 [facility] Comment on above: Performed By: #### C VDTBH #### [facility] [address] [address] [address] Johnna Dixon Sodium [Moles/Vol] 141 mmol/L Normal 136-145 [facility] Comment on above: Performed By: #### C VDTBH #### [facility] [address] [address] [address] Johnna Dixon Urea nitrogen [Mass/Vol] 19.0 mg/dL Critically high 7.0-18.0 [facility] Comment on above: Performed By: #### C VDTBH #### [facility] [address] [address] [address] Johnna Dixon Urea nitrogen/Creatinine [Mass ratio] 15.7 mg/mg Normal [facility] Comment on above: Performed By: #### C VDTBH #### [facility] [address] [address] [address] Johnna Dixon CREATININEon 08-04-2022 Creatinine [Mass/Vol] 1.31 mg/dL Critically high 0.70-1.30 [facility] Comment on above: Performed By: #### C JANIS #### [facility] [address] [address] [address] Johnna Dixon EGFR-AF KITTITIAN >60 Normal >=60 [facility] Comment on above: Performed By: #### C JANIS #### [facility] [address] [address] [address] Johnna Dixon EGFR-NON AF KITTITIAN 54 mL/min/1.73m2 Critically low >=60 [facility] Comment on above: Performed By: #### C JANIS #### [facility] [address] [address] [address] Johnna Dixon CTA NECK WO W [...] ALLI CORTES Date: 2022-08-04 14:04 Normal [facility] US CAROTID ART BILon 023 US CAROTID ART SREEKANTH EXAMINATION: US GOMES TID ART SREEKANTH HISTORY: Essential hypertension , visual [...] SOCORRO BANSAL Date: 2022-04-18 16:17 Normal [facility] CULTURE URINEon 03-12-2022 CULTURE URINE Culture Observations : NO GROWTH. Normal [facility] Comment on above: Performed By: #### S PUTVANESSA #### [facility] [address] [place] [address] Dr. Johnna Dixon COVID-19 Positive/NegativeOr dered By: Lionel Whitney on 02-13-2022 SARS-CoV-2 (COVID-19) N gene REX+probe Ql (Resp) Negative Negative [facility] Comment on above: Testing for SARS-CoV -2 by RT-PCR This test was developed and its performance characteristics determined by [employer] and validated at the [facility]. This test has not been [...] aPTT Coag (PPP) [Time] 34.8 s 25.1-36.5 [facility] Basophils Auto (Bld) [#/Vol] Ordered By: Lionel Whitney on 02-06-2022 Basophils (Bld) [#/Vol] 0.0 10*3/uL 0.0-0.2 [facility] Basophils/100 WBC Auto (Bld) Ordered By: Lionel Whitney on 02-06-2022 Basophils/100 WBC (Bld) 0.8 % . [facility] Blood hemoglobin measurement (mass/volume)Ordered By: Lionel Whitney on 02-06-2022 Hemoglobin (Bld) [Mass/Vol] 13.2 g/dL 13.0-17.0 [facility] Blood leukocytes automated c ount (number/volume)Ordered By: Lionel Whitney on 02-06-2022 WBC (Bld) [#/Vol] 5.7 10*3/uL 4.5-11.0 [facility] Creatinine and Glomerular fi ltration rate.predicted panel (S/P/Bld)Ordered By: Lionel Whitney on 02-06-2022 Creatinine [Mass/Vol] 1.21 mg/dL 0.64-1.27 [facility] Eosinophils Auto (Bld) [#/Vo l]Ordered By: Lionel Whitney on 02-06-2022 Eosinophils (Bld) [#/Vol] 0.1 10*3/uL 0.0-0.45 [facility] Eosinophils/100 WBC Auto (Bl d)Ordered By: Lioenl Whitney on 02-06-2022 Eosinophils/100 WBC (Bld) 1.7 % . [facility] Erythrocyte distribution wid th Auto (RBC) [Ratio]Ordered By: Lionel Whitney on 02-06-2022 Erythrocyte distribution width (RBC) [Ratio] 14.2 % 12.0-14.8 [facility] Estimated glomerular filtrat ion rate (GFR) non- AmericanOrdered By: Lionel Whitney on 02-06-2022 GFR/1.73 sq M.predicted among non-blacks MDRD (S/P/Bld) [Vol rate/Area] 59 mL/Min [facility] Hematocrit Auto (Bld) [Volum e fraction]Ordered By: Lionel Whitney on 02-06-2022 Hematocrit (Bld) [Volume fraction] 40.8 % 38.8-50.0 [facility] - CoagulationOrde red By: Lionel Whitney on 02-06-2022 PT Coag (PPP) [Time] 11.0 s 9.0-12.9 [facility] - Hematology and Cell countsOrdered By: Lionel Whitney on 02-06-2022 Nucleated RBC/100 WBC (Bld) [Ratio] 0.1 % 0-0.5 [facility] Lymphocytes Auto (Bld) [#/Vo l]Ordered By: Lionel Whitney on 02-06-2022 Lymphocytes (Bld) [#/Vol] 1.6 10*3/uL 1.00-4.8 [facility] Lymphocytes/100 WBC Auto (Bl d)Ordered By: Lionel Whitney on 02-06-2022 Lymphocytes/100 WBC (Bld) 27.4 % . [facility] MCH Auto (RBC) [Entitic mass ]Ordered By: Lionel Whitney on 02-06-2022 MCH (RBC) [Entitic mass] 29.7 pg 27.5-35.2 [facility] MCHC Auto (RBC) [Mass/Vol]Or dered By: Lionel Whitney on 02-06-2022 MCHC (RBC) [Mass/Vol] 32.4 g/dL 32.5-35.6 [facility] MCV Auto (RBC) [Entitic vol] Ordered By: Lionel Whitney on 02-06-2022 MCV (RBC) [Entitic vol] 91.6 fL 83.5-101 [facility] Monocytes Auto (Bld) [#/Vol] Ordered By: Lionel Whitney on 02-06-2022 Monocytes (Bld) [#/Vol] 0.5 10*3/uL 0.0-0.8 [facility] Monocytes/100 WBC Auto (Bld) Ordered By: Lionel Whitney on 02-06-2022 Monocytes/100 WBC (Bld) 8.7 % . [facility] Neutrophils Auto (Bld) [#/Vo l]Ordered By: Lionel Whitney on 02-06-2022 Neutrophils (Bld) [#/Vol] 3.5 10*3/uL 1.8-7.7 [facility] Neutrophils/100 WBC Auto (Bl d)Ordered By: Lionel Whitney on 02-06-2022 Neutrophils/100 WBC (Bld) 61.4 % . [facility] No Panel InformationOrdered By: Lionel Whitney on 02-06-2022 Estimated GFR () > 60 mL/Min [facility] Comment on above: GFR estimated refere nce range: According to KDOQI guidelines, <60 ml/min/1.73m2 is sufficient to diagnose a patient with chronic kidney disease. Pharmacy Creatinine Clearance (Chem N/A [facility] Platelet mean volume Auto (B ld) [Entitic vol]Ordered By: Lionel Whitney on 02-06-2022 Platelet mean volume (Bld) [Entitic vol] 8.4 fL 6.6-10.1 [facility] Platelet poor plasma interna tional normalized ratio (INR) by coagulation assay (relatOrdered By: Lionel Whitney on 02-06-2022 INR Coag (PPP) [Relative time] 1.0 {INR} [facility] Comment on above: INR Therapeutic [...] Platelets (Bld) [#/Vol] 248 10*3/uL 150-450 [facility] RBC Auto (Bld) [#/Vol]Ordere d By: Lionel Whitney on 02-06-2022 RBC (Bld) [#/Vol] 4.45 10*6/uL 3.90-5.60 [facility] Serum or plasma calcium eliezer urement (mass/volume)Ordered By: Lionel Whitney on 02-06-2022 Calcium [Mass/Vol] 9.7 mg/dL 8.2-10.2 [facility] Serum or plasma chloride sammy surement (moles/volume)Ordered By: Lionel Whitney on 02-06-2022 Chloride [Moles/Vol] 99 mmol/L 95-114 [facility] Serum or plasma glucose eliezer urement (mass/volume)Ordered By: Lionel Whitney on 02-06-2022 Glucose [Mass/Vol] 99 mg/dL 70-100 [facility] Comment on above: ADA recommended refe rence range Random Glucose Reference Range is dependent on time and content of last meal. Glucose of more than 200 mg/dL in a nonstressed, ambulatory subject supports the diagnosis of Diabetes Mellitus. Serum or plasma potassium me asurement (moles/volume)Ordered By: Lionel Whitney on 02-06-2022 Potassium [Moles/Vol] 4.4 mmol/L 3.5-5.1 [facility] Serum or plasma sodium measu rement (moles/volume)Ordered By: Lionel Whitney on 02-06-2022 Sodium [Moles/Vol] 135 mmol/L 136-146 [facility] Serum or plasma total carbon dioxide measurement (moles/volume)Ordered By: Loinel Whitney on 02-06-2022 CO2 [Moles/Vol] 26.2 mmol/L 22.0-30.0 [facility] Serum or plasma urea nitroge n measurement (mass/volume)Ordered By: Lionel Whitney on 02-06-2022 Urea nitrogen [Mass/Vol] 20 mg/dL 9-23 [facility] COVID-19 Positive/NegativeOr dered By: Lionel Whitney on 10-27-2021 SARS-CoV-2 (COVID-19) N gene REX+probe Ql (Resp) Negative Negative [facility] Comment on above: Testing for SARS-CoV -2 by RT-PCR This test was developed and its performance characteristics determined by [email or web address] and validated at the [facility]. This test has not been [...] aPTT Coag (PPP) [Time] 36.2 s 25.1-36.5 [facility] Basophils Auto (Bld) [#/Vol] Ordered By: Lionel Whitney on 10-17-2021 Basophils (Bld) [#/Vol] 0.0 10*3/uL 0.0-0.2 [facility] Basophils/100 WBC Auto (Bld) Ordered By: Lionel Whitney on 10-17-2021 Basophils/100 WBC (Bld) 0.6 % [facility] Blood hemoglobin measurement (mass/volume)Ordered By: Lionel Whitney on 10-17-2021 Hemoglobin (Bld) [Mass/Vol] 13.6 g/dL 13.0-17.0 [facility] Blood leukocytes automated c ount (number/volume)Ordered By: Lionel Whitney on 10-17-2021 WBC (Bld) [#/Vol] 5.9 10*3/uL 4.5-11.0 [facility] Creatinine and Glomerular fi ltration rate.predicted panel (S/P/Bld)Ordered By: Lionel Whitney on 10-17-2021 Creatinine [Mass/Vol] 0.96 mg/dL 0.64-1.27 [facility] Eosinophils Auto (Bld) [#/Vo l]Ordered By: Lionel Whitney on 10-17-2021 Eosinophils (Bld) [#/Vol] 0.1 10*3/uL 0.0-0.45 [facility] Eosinophils/100 WBC Auto (Bl d)Ordered By: Lionel Whitney on 10-17-2021 Eosinophils/100 WBC (Bld) 2.0 % [facility] Erythrocyte distribution wid th Auto (RBC) [Ratio]Ordered By: Lionel Whitney on 10-17-2021 Erythrocyte distribution width (RBC) [Ratio] 14.5 % 12.0-14.8 [facility] Estimated glomerular filtrat ion rate (GFR) non- AmericanOrdered By: Lionel Whitney on 10-17-2021 GFR/1.73 sq M.predicted among non-blacks MDRD (S/P/Bld) [Vol rate/Area] > 60 mL/Min [facility] Hematocrit Auto (Bld) [Volum e fraction]Ordered By: Lionel Whitney on 10-17-2021 Hematocrit (Bld) [Volume fraction] 41.5 % 38.8-50.0 [facility] - CoagulationOrde red By: Lionel Whitney on 10-17-2021 PT Coag (PPP) [Time] 11.0 s 9.0-12.9 [facility] - Hematology and Cell countsOrdered By: Lionel Whitney on 10-17-2021 Nucleated RBC/100 WBC (Bld) [Ratio] 0.0 % 0-0.5 [facility] Lymphocytes Auto (Bld) [#/Vo l]Ordered By: Lionel Whitney on 10-17-2021 Lymphocytes (Bld) [#/Vol] 1.6 10*3/uL 1.00-4.8 [facility] Lymphocytes/100 WBC Auto (Bl d)Ordered By: Lionel Whitney on 10-17-2021 Lymphocytes/100 WBC (Bld) 26.8 % [facility] MCH Auto (RBC) [Entitic mass ]Ordered By: Lionel Whitney on 10-17-2021 MCH (RBC) [Entitic mass] 29.3 pg 27.5-35.2 [facility] MCHC Auto (RBC) [Mass/Vol]Or dered By: Lionel Whitney on 10-17-2021 MCHC (RBC) [Mass/Vol] 32.7 g/dL 32.5-35.6 [facility] MCV Auto (RBC) [Entitic vol] Ordered By: Lionel Whitney on 10-17-2021 MCV (RBC) [Entitic vol] 89.8 fL 83.5-101 [facility] Monocytes Auto (Bld) [#/Vol] Ordered By: Lionel Whitney on 10-17-2021 Monocytes (Bld) [#/Vol] 0.6 10*3/uL 0.0-0.8 [facility] Monocytes/100 WBC Auto (Bld) Ordered By: Lionel Whitney on 10-17-2021 Monocytes/100 WBC (Bld) 10.6 % [facility] Neutrophils Auto (Bld) [#/Vo l]Ordered By: Lionel Whitney on 10-17-2021 Neutrophils (Bld) [#/Vol] 3.5 10*3/uL 1.8-7.7 [facility] Neutrophils/100 WBC Auto (Bl d)Ordered By: Lionel Whitney on 10-17-2021 Neutrophils/100 WBC (Bld) 60.0 % [facility] No Panel InformationOrdered By: Lionel Whitney on 10-17-2021 Estimated GFR () > 60 mL/Min [facility] Comment on above: GFR estimated refere nce range: According to KDOQI guidelines, <60 ml/min/1.73m2 is sufficient to diagnose a patient with chronic kidney disease. Pharmacy Creatinine Clearance (Chem N/A [facility] Platelet mean volume Auto (B ld) [Entitic vol]Ordered By: Lionel Whitney on 10-17-2021 Platelet mean volume (Bld) [Entitic vol] 8.3 fL 6.6-10.1 [facility] Platelet poor plasma interna tional normalized ratio (INR) by coagulation assay (relatOrdered By: Lionel Whitney on 10-17-2021 INR Coag (PPP) [Relative time] 1.0 {INR} [facility] Comment on above: INR Therapeutic [...] Platelets (Bld) [#/Vol] 249 10*3/uL 150-450 [facility] RBC Auto (Bld) [#/Vol]Ordere d By: Lionel Whitney on 10-17-2021 RBC (Bld) [#/Vol] 4.62 10*6/uL 3.90-5.60 [facility] Serum or plasma calcium eliezer urement (mass/volume)Ordered By: Lionel Whitney on 10-17-2021 Calcium [Mass/Vol] 9.7 mg/dL 8.2-10.2 [facility] Serum or plasma chloride sammy surement (moles/volume)Ordered By: Lionel Whitney on 10-17-2021 Chloride [Moles/Vol] 101 mmol/L 95-114 [facility] Serum or plasma glucose eliezer urement (mass/volume)Ordered By: Lionel Whitney on 10-17-2021 Glucose [Mass/Vol] 87 mg/dL 70-100 [facility] Comment on above: ADA recommended refe rence range Random Glucose Reference Range is dependent on time and content of last meal. Glucose of more than 200 mg/dL in a nonstressed, ambulatory subject supports the diagnosis of Diabetes Mellitus. Serum or plasma potassium me asurement (moles/volume)Ordered By: Lionel Whitney on 10-17-2021 Potassium [Moles/Vol] 4.4 mmol/L 3.5-5.1 [facility] Serum or plasma sodium measu rement (moles/volume)Ordered By: Lionel Whitney on 10-17-2021 Sodium [Moles/Vol] 136 mmol/L 136-146 [facility] Serum or plasma total carbon dioxide measurement (moles/volume)Ordered By: Lionel Whitney on 10-17-2021 CO2 [Moles/Vol] 25.6 mmol/L 22.0-30.0 [facility] Serum or plasma urea nitroge n measurement (mass/volume)Ordered By: Lionel Whitney on 10-17-2021 Urea nitrogen [Mass/Vol] 18 mg/dL 9-23 [facility] Vital Signs Date Time Vital Sign Value Performing Clinician Facility 12-13-2024 13:26-0400 Body temperature 97.7 [degF] Norberto Andrade MD Work Phone: [facility] 12-13-2024 13:26-0400 Body weight 84.4 kg Norberto Andrade MD Work Phone: [facility] 12-13-2024 13:26-0400 Diastolic blood pressure 80 mm[Hg] Norberto Andrade MD Work Phone: [facility] 12-13-2024 13:26-0400 Heart rate 74 /min Norberto Andrade MD Work Phone: [facility] 12-13-2024 13:26-0400 Respiratory rate 18 /min Norberto Andrade MD Work Phone: [facility] 12-13-2024 13:26-0400 SaO2% (BldA) [Mass fraction] 99 % Norberto Andrade MD Work Phone: [facility] 12-13-2024 13:26-0400 Systolic blood pressure 135 mm[Hg] Norberto Andrade MD Work Phone: [facility] 10-06-2024 09:56-0400 Body height 182.9 cm Karen MARES Work Phone: [facility] 10-06-2024 09:56-0400 Body mass index (BMI) [Ratio] 25.77 kg/m2 Karen MARES Work Phone: [facility] 10-06-2024 09:56-0400 Body weight 86.18 kg Karen MARES Work Phone: [facility] 09-13-2024 12:52-0400 Body temperature 97.59 [degF] Norberto Andrade MD Work Phone: [facility] 09-13-2024 12:52-0400 Body weight 86.6 kg Norberto Andrade MD Work Phone: [facility] 09-13-2024 12:52-0400 Diastolic blood pressure 75 mm[Hg] Norberto Andrade MD Work Phone: [facility] 09-13-2024 12:52-0400 Heart rate 73 /min Norberto Andrade MD Work Phone: [facility] 09-13-2024 12:52-0400 Respiratory rate 18 /min Norberto Andrade MD Work Phone: [facility] 09-13-2024 12:52-0400 SaO2% (BldA) [Mass fraction] 97 % Norberto Andrade MD Work Phone: [facility] 09-13-2024 12:52-0400 Systolic blood pressure 119 mm[Hg] Norberto Andrade MD Work Phone: [facility] 08-30-2024 13:01-0400 Body temperature 97.81 [degF] Chair Rolando Work Phone: [facility] 08-30-2024 13:01-0400 Diastolic blood pressure 76 mm[Hg] Chair Rolando Work Phone: [facility] 08-30-2024 13:01-0400 Heart rate 65 /min Chair [place] Work Phone: [facility] 08-30-2024 13:01-0400 Respiratory rate 18 /min Chair Rolando Work Phone: [facility] 08-30-2024 13:01-0400 SaO2% (BldA) [Mass fraction] 96 % Chair Rolando Work Phone: [facility] 08-30-2024 13:01-0400 Systolic blood pressure 125 mm[Hg] Chair Rolando Work Phone: [facility] 08-23-2024 13:08-0500 Body temperature 97.5 [degF] Chair [place] Work Phone: [facility] 08-23-2024 13:08-0500 Diastolic blood pressure 81 mm[Hg] Chair [place] Work Phone: [facility] 08-23-2024 13:08-0500 Heart rate 56 /min Chair Rolando Work Phone: [facility] 08-23-2024 13:08-0500 Respiratory rate 16 /min Chair [place] Work Phone: [facility] 08-23-2024 13:08-0500 SaO2% (BldA) [Mass fraction] 99 % Chair [place] Work Phone: [facility] 08-23-2024 13:08-0500 Systolic blood pressure 139 mm[Hg] Chair Rolando Work Phone: [facility] 08-16-2024 13:09-0500 Body temperature 98.2 [degF] Norberto Andrade MD Work Phone: [facility] 08-16-2024 13:09-0500 Body weight 87.5 kg Norberto Andrade MD Work Phone: [facility] 08-16-2024 13:09-0500 Diastolic blood pressure 83 mm[Hg] Norberto Andrade MD Work Phone: [facility] 08-16-2024 13:09-0500 Heart rate 86 /min Norberto Andrade MD Work Phone: [facility] 08-16-2024 13:09-0500 Respiratory rate 16 /min Norberto Andrade MD Work Phone: [facility] 08-16-2024 13:09-0500 SaO2% (BldA) [Mass fraction] 97 % Norberto Andrade MD Work Phone: [facility] 08-16-2024 13:09-0500 Systolic blood pressure 148 mm[Hg] Norberto Andrade MD Work Phone: [facility] 08-16-2024 13:00-0500 Body temperature 97.81 [degF] Chair Rolando Work Phone: [facility] 08-16-2024 13:00-0500 Diastolic blood pressure 85 mm[Hg] Chair [place] Work Phone: [facility] 08-16-2024 13:00-0500 Heart rate 90 /min Chair [place] Work Phone: [facility] 08-16-2024 13:00-0500 SaO2% (BldA) [Mass fraction] 98 % Chair [place] Work Phone: [facility] 08-16-2024 13:00-0500 Systolic blood pressure 143 mm[Hg] Chair Rolando Work Phone: [facility] 08-09-2024 13:15-0500 Diastolic blood pressure 90 mm[Hg] Chair [place] Work Phone: [facility] Comment on above: Pt reports he is asymptomatic and sees c ardiology 08-09-2024 13:15-0500 Systolic blood pressure 167 mm[Hg] Chair Rolando Work Phone: [facility] Comment on above: Pt reports he is asymptomatic and sees c ardiology 08-09-2024 13:10-0500 Body temperature 97.9 [degF] Chair Rolando Work Phone: [facility] 08-09-2024 13:10-0500 Heart rate 87 /min Chair Rolando Work Phone: [facility] 08-09-2024 13:10-0500 Respiratory rate 18 /min Chair Rolando Work Phone: [facility] 08-09-2024 13:10-0500 SaO2% (BldA) [Mass fraction] 97 % Chair Rolando Work Phone: [facility] 08-02-2024 08:33-0500 Body temperature 97.5 [degF] Norberto Andrade MD Work Phone: [facility] 08-02-2024 08:33-0500 Body weight 88.5 kg Norberto Andrade MD Work Phone: [facility] 08-02-2024 08:33-0500 Diastolic blood pressure 79 mm[Hg] Norberto Andrade MD Work Phone: [facility] 08-02-2024 08:33-0500 Heart rate 80 /min Norberto Andrade MD Work Phone: [facility] 08-02-2024 08:33-0500 Respiratory rate 18 /min Norberto Andrade MD Work Phone: [facility] 08-02-2024 08:33-0500 SaO2% (BldA) [Mass fraction] 96 % Norberto Andrade MD Work Phone: [facility] 08-02-2024 08:33-0500 Systolic blood pressure 131 mm[Hg] Norberto Andrade MD Work Phone: [facility] 07-19-2024 10:43-0500 Body temperature 97.2 [degF] Norberto Andrade MD Work Phone: [facility] 07-19-2024 10:43-0500 Body weight 86.7 kg Norberto Andrade MD Work Phone: [facility] 07-19-2024 10:43-0500 Diastolic blood pressure 74 mm[Hg] Norberto Andrade MD Work Phone: [facility] 07-19-2024 10:43-0500 Heart rate 81 /min Norberto Andrade MD Work Phone: [facility] 07-19-2024 10:43-0500 Respiratory rate 18 /min Norberto Andrade MD Work Phone: [facility] 07-19-2024 10:43-0500 SaO2% (BldA) [Mass fraction] 97 % Norberto Andrade MD Work Phone: [facility] 07-19-2024 10:43-0500 Systolic blood pressure 121 mm[Hg] Norberto Andrade MD Work Phone: [facility] 07-17-2024 11:17-0500 Diastolic blood pressure 80 mm[Hg] Cady Espinosa MD Work Phone: [facility] 07-17-2024 11:17-0500 Systolic blood pressure 142 mm[Hg] Cady Espinosa MD Work Phone: [facility] 07-17-2024 10:51-0500 Body height 182.9 cm Cady Espinosa MD Work Phone: [facility] 07-17-2024 10:51-0500 Body mass index (BMI) [Ratio] 26.5 kg/m2 Cady Espinosa MD Work Phone: [facility] 07-17-2024 10:51-0500 Body weight 88.63 kg Cady Espinosa MD Work Phone: [facility] 07-17-2024 10:51-0500 Heart rate 72 /min Cady Espinosa MD Work Phone: [facility] 07-12-2024 09:50-0500 Blood Pressure Location Lionel WHITNEY [facility] 07-12-2024 09:50-0500 Diastolic blood pressure 82 mm[Hg] Lionel WHITNEY [facility] 07-12-2024 09:50-0500 Heart rate 70 /min Lioneljameel WHITNEY [facility] 07-12-2024 09:50-0500 Respiratory rate 16 /min Lionel WHITNEY [facility] 07-12-2024 09:50-0500 Systolic blood pressure 132 mm[Hg] Lionel WHITNEY [facility] 05-08-2024 11:49-0500 Diastolic blood pressure 90 mm[Hg] Cady Espinosa MD Work Phone: [facility] 05-08-2024 11:49-0500 Systolic blood pressure 180 mm[Hg] Cady Espinosa MD Work Phone: [facility] 05-08-2024 11:28-0500 Heart rate 67 /min Cady Espinosa MD Work Phone: [facility] 05-08-2024 11:27-0500 Body height 182.9 cm Cady Espinosa MD Work Phone: [facility] 05-08-2024 11:27-0500 Body mass index (BMI) [Ratio] 25.96 kg/m2 Cady Espinosa MD Work Phone: [facility] 05-08-2024 11:27-0500 Body weight 86.82 kg Cady Espinosa MD Work Phone: [facility] 03-28-2024 14:58-0400 Body height 182.88 cm [facility] 03-28-2024 14:58-0400 Body mass index (BMI) [Ratio] 24.7 kg/m2 [facility] 03-28-2024 14:58-0400 Body weight 83 kg [facility] 10-11-2023 15:27-0400 Body height 182.88 cm MD Deandre Monterroso Work Phone: [facility] 10-11-2023 15:27-0400 Body mass index (BMI) [Ratio] 25 kg/m2 MD Deandre Monterroso Work Phone: [facility] 10-11-2023 15:27-0400 Body temperature 97.2 [degF] MD Deandre Monterroso Work Phone: [facility] 10-11-2023 15:27-0400 Body weight 83.91 kg MD Deandre Monterroso Work Phone: [facility] 10-11-2023 15:27-0400 Diastolic blood pressure 88 mm[Hg] MD Deandre Monterroso Work Phone: [facility] 10-11-2023 15:27-0400 Heart rate 79 /min MD Deandre Monterroso Work Phone: [facility] 10-11-2023 15:27-0400 Systolic blood pressure 146 mm[Hg] MD Deandre Monterroso Work Phone: [facility] 10-04-2023 10:35-0400 Blood Pressure Location Lionel WHITNEY [facility] 10-04-2023 10:35-0400 Diastolic blood pressure 88 mm[Hg] Lionel WHITNEY [facility] 10-04-2023 10:35-0400 Heart rate 72 /min Lionel WHITNEY [facility] 10-04-2023 10:35-0400 Respiratory rate 16 /min Lionel WHITNEY [facility] 10-04-2023 10:35-0400 Systolic blood pressure 136 mm[Hg] Lionel WHITNEY [facility] 08-12-2023 11:10-0500 Body height 182.88 cm MD Deandre Monterroso Work Phone: [facility] 08-12-2023 11:10-0500 Body mass index (BMI) [Ratio] 24.3 kg/m2 MD Deandre Monterroso Work Phone: [facility] 08-12-2023 11:10-0500 Body weight 81.19 kg MD Deandre Monterroso Work Phone: [facility] 02-10-2023 14:16-0400 Blood Pressure Location Qamar ROBINSONL [facility] 02-10-2023 14:16-0400 Diastolic blood pressure 80 mm[Hg] Qamar NILL [facility] 02-10-2023 14:16-0400 Heart rate 70 /min Qamar NILL [facility] [place] 02-10-2023 14:16-0400 Respiratory rate 16 /min Qamar NILL [facility] 02-10-2023 14:16-0400 Systolic blood pressure 124 mm[Hg] Qamar NILL [facility] 12-03-2022 10:20-0400 Body height 182.88 cm Zoran Chavez Other [employer] Other 12-03-2022 10:20-0400 Body mass index (BMI) [Ratio] 25.49 kg/m2 Zoran Chavez Other [employer] Other 12-03-2022 10:20-0400 Body weight 85.28 kg Zoran Chavez Other [employer] Other 10-22-2022 10:20-0400 Body height 182.88 cm Zoran Chavez Other [employer] Other 10-22-2022 10:20-0400 Body mass index (BMI) [Ratio] 25.63 kg/m2 Zoran Chavez Other [employer] Other 10-22-2022 10:20-0400 Body weight 85.73 kg Zoran Chavez Other [employer] Other 10-22-2022 10:20-0400 Diastolic blood pressure 80 mm[Hg] Zoran Chavez Other [employer] Other 10-22-2022 10:20-0400 Systolic blood pressure 110 mm[Hg] Zoran Chavez Other [employer] Other 02-24-2022 10:43-0400 Blood Pressure Location Lionel WHITNEY [facility] 02-24-2022 10:43-0400 Diastolic blood pressure 80 mm[Hg] Lioneljameel WHITNEY [facility] 02-24-2022 10:43-0400 Heart rate 65 /min Lionel WHITNEY [facility] 02-24-2022 10:43-0400 Respiratory rate 16 /min Lionel WHITNEY [facility] 02-24-2022 10:43-0400 Systolic blood pressure 140 mm[Hg] Lionel WHITNEY [facility] 02-17-2022 15:15-0400 Diastolic blood pressure 83 mm[Hg] MD Deandre Monterroso Work Phone: [facility] 02-17-2022 15:15-0400 Heart rate 58 /min MD Deandre Monterroso Work Phone: [facility] 02-17-2022 15:15-0400 Respiratory rate 16 /min MD Deandre Monterroso Work Phone: [facility] 02-17-2022 15:15-0400 SaO2% (BldA) [Mass fraction] 95 % MD Deandre Monterroso Work Phone: [facility] 02-17-2022 15:15-0400 Systolic blood pressure 166 mm[Hg] MD Deandre Monterroso Work Phone: [facility] 02-17-2022 14:30-0400 Body height 182.88 cm MD Deandre Monterroso Work Phone: [facility] 02-17-2022 14:30-0400 Body mass index (BMI) [Ratio] 26.2 kg/m2 MD Deandre Monterroso Work Phone: [facility] 02-17-2022 14:30-0400 Body weight 87.7 kg MD Deandre Monterroso Work Phone: [facility] 02-17-2022 14:17-0400 Body temperature 97.6 [degF] MD Deandre Monterroso Work Phone: [facility] 02-17-2022 13:52-0400 Inhaled oxygen flow rate 10 L/min MD Deandre Monterroso Work Phone: [facility] 10-17-2021 11:42-0400 Body height 180.34 cm MD Deandre Monterroso Work Phone: [facility] 10-17-2021 11:42-0400 Body mass index (BMI) [Ratio] 27 kg/m2 MD Deandre Monterroso Work Phone: [facility] 10-17-2021 11:42-0400 Body temperature 98.4 [degF] MD Deandre Monterroso Work Phone: [facility] 10-17-2021 11:42-0400 Body weight 88 kg MD Deandre Monterroso Work Phone: [facility] 10-17-2021 11:42-0400 Diastolic blood pressure 90 mm[Hg] MD Deandre Monterroso Work Phone: [facility] 10-17-2021 11:42-0400 Heart rate 64 /min MD Deandre Monterroso Work Phone: [facility] 10-17-2021 11:42-0400 SaO2% (BldA) [Mass fraction] 100 % MD Deandre Monterroso Work Phone: [facility] 10-17-2021 11:42-0400 Systolic blood pressure 172 mm[Hg] MD Deandre Monterroso Work Phone: [facility] Encounters Encounter Date Encounter Type Care Provider Facility Start: 02-26-2025 ambulatory Lionel Valdivia ty:[facility] Start: 01-16-2025 End: 01-16-2025 Romero Colmenares DO Work Phone: [facility] [employer] Start: 01-16-2025 End: 01-16-2025 Romero Colmenares DO Work Phone: [facility] [employer] Start: 01-16-2025 End: 01-16-2025 Office outpatient visit 15 minutes Jr. Alexandrea Colmenares DO Work Phone: [facility] Comment on above: Trochanteric bursiti s of left hip (Primary Dx); Acute hip pain, left Start: 01-16-2025 End: 01-16-2025 ambulatory ALEXANDREA GALINDO Not Available Start: 12-13-2024 End: 12-13-2024 Office outpatient visit 15 minutes Norberto Andrade MD Work Phone: Hematology/Oncology Comment on above: Malignant neoplasm o f urinary bladder, unspecified site (HCC) (Primary Dx) Start: 12-13-2024 End: 12-13-2024 ambulatory DEANDRE MONTERROSO Facility:[facility] Start: 12-12-2024 End: 12-12-2024 ambulatory LAUREN Higginbotham AMBREEN Facility:[facility] Start: 12-12-2024 End: 12-12-2024 Patient encounter procedure LAUREN Neftaly BURRRY [facility] Start: 12-11-2024 End: 12-11-2024 ambulatory ALEXANDREA [facility] Start: 12-06-2024 End: 12-06-2024 Romero Meyers Stepbernie DO Work Phone: [facility] Start: 12-06-2024 End: 12-06-2024 Romero Meyers Stepbernie DO Work Phone: [facility] Start: 12-06-2024 End: 12-06-2024 Office outpatient visit 15 minutes Jr. Alexandrea Meyers Stepbernie DO Work Phone: [facility] Comment on above: Trochanteric bursiti s of left hip (Primary Dx); Acute hip pain, left Start: 12-06-2024 End: 12-06-2024 ambulatory ALEXANDREA GALINDO Not Available Start: 12-05-2024 End: 12-05-2024 ambulatory LAUREN CROOK Facility:[facility] Start: 12-05-2024 End: 12-05-2024 Patient encounter procedure LAUREN BURRRY [facility] Start: 11-28-2024 End: 11-28-2024 ambulatory LAUREN BURRRY Facility:[facility] Start: 11-28-2024 End: 11-28-2024 Patient encounter procedure LAUREN Neftaly BURRRY [facility] Start: 11-10-2024 End: 11-10-2024 ambulatory KAREN BUSTILLO Not Available Start: 11-09-2024 End: 11-09-2024 ambulatory KAREN BUSTILLO Not Available Start: 10-27-2024 End: 10-27-2024 Bamboo flowsheet Karen Bustillo PA Work Phone: [facility] Start: 10-27-2024 End: 10-27-2024 Bamboo flowsheet Karen Bustillo PA Work Phone: [facility] Start: 10-27-2024 End: 10-27-2024 ambulatory KAREN BUSTILLO Not Available Start: 10-27-2024 End: 10-27-2024 Office outpatient visit 15 minutes Karen Bustillo PA Work Phone: [facility] Comment on above: Acute hip pain, left (Primary Dx) Start: 10-24-2024 End: 10-24-2024 ambulatory Lionel WHITNEY Facility:[facility] Start: 10-24-2024 End: 10-24-2024 Patient encounter procedure Lionel WHITNEY [facility] Start: 10-09-2024 End: 10-09-2024 ambulatory Lionel WHITNEY Facility:[facility] Start: 10-06-2024 End: 10-06-2024 Bamboo flowsheet Karen Bustillo PA Work Phone: [facility] Start: 10-06-2024 End: 10-06-2024 Bamboo flowsheet Karen Bustillo PA Work Phone: [facility] Start: 10-06-2024 End: 10-06-2024 ambulatory KAREN BUSTILLO Not Available Start: 10-06-2024 End: 10-06-2024 Office outpatient new 45 minutes Karen Bustillo PA Work Phone: [facility] Comment on above: Acute hip pain, left (Primary Dx); Trochanteric bursitis of left hip Start: 09-20-2024 End: 09-20-2024 Subsequent hospital visit by physician Tania Whiteside [facility] Comment on above: Chest pressure; Shortness of breath Start: 09-20-2024 End: 09-20-2024 ambulatory [facility] Start: 09-13-2024 End: 09-13-2024 Nursing evaluation of patient and report Bruno Trevino Work Phone: Hematology/Oncology Comment on above: Malignant neoplasm o f urinary bladder, unspecified site (HCC) (Primary Dx) Start: 09-13-2024 End: 09-13-2024 Office outpatient visit 25 minutes Norberto Andrade MD Work Phone: Hematology/Oncology Comment on above: Malignant neoplasm o f urinary bladder, unspecified site (HCC) (Primary Dx) Start: 09-13-2024 End: 09-13-2024 ambulatory Chair 23 [address] Work Phone: Hematology/Oncology Comment on above: Malignant neoplasm o f urinary bladder, unspecified site (HCC) (Primary Dx) Start: 09-11-2024 End: 09-11-2024 ambulatory VASU Vee GALEANO Not Available Start: 09-01-2024 End: 09-01-2024 ambulatory NORBERTO ANDRADE Facility:[facility] Start: 09-01-2024 End: 09-01-2024 Subsequent hospital visit by physician Arrival Time Radiology Work Phone: [facility] Comment on above: Malignant neoplasm o f urinary bladder, unspecified site (HCC) [C67.9] Start: 08-30-2024 End: 08-30-2024 Nursing evaluation of patient and report Bruno Trevino Work Phone: Hematology/Oncology Comment on above: UTI symptoms (Primar y Dx) Start: 08-30-2024 End: 08-30-2024 ambulatory Chair 23 Rolando Work Phone: Hematology/Oncology Comment on above: Malignant neoplasm o f urinary bladder, unspecified site (HCC) (Primary Dx) Start: 08-28-2024 End: 03-10-2025 ambulatory Tamiko Landa MD Facility: [facility] Start: 08-23-2024 End: 10-23-2024 Follow-up encounter Norberto Andrade MD Work Phone: Hematology/Oncology Start: 08-23-2024 End: 08-23-2024 Nursing evaluation of patient and report Bruno Trevino Work Phone: Hematology/Oncology Comment on above: High risk medication use (Primary Dx) Start: 08-23-2024 End: 08-23-2024 ambulatory Chair 23 Rol[address] Work Phone: Hematology/Oncology Comment on above: Malignant neoplasm o f urinary bladder, unspecified site (HCC) (Primary Dx) Start: 08-16-2024 End: 08-16-2024 Nursing evaluation of patient and report Bruno Trevino Work Phone: Hematology/Oncology Comment on above: High risk medication use (Primary Dx) Start: 08-16-2024 End: 08-16-2024 Office outpatient visit 25 minutes Norberto Andrade MD Work Phone: Hematology/Oncology Comment on above: Malignant neoplasm o f urinary bladder, unspecified site (HCC) (Primary Dx) Start: 08-16-2024 End: 08-16-2024 ambulatory Chair 23 Rolando Work Phone: Hematology/Oncology Comment on above: Malignant neoplasm o f urinary bladder, unspecified site (HCC) (Primary Dx) Start: 08-09-2024 End: 08-09-2024 Nursing evaluation of patient and report Bruno Trevino Work Phone: Hematology/Oncology Comment on above: High risk medication use (Primary Dx) Start: 08-09-2024 End: 08-09-2024 ambulatory Chair 23 Rolando Work Phone: Hematology/Oncology Comment on above: Malignant neoplasm o f urinary bladder, unspecified site (HCC) (Primary Dx) Start: 08-07-2024 End: 08-07-2024 Telephone encounter Ingrid Ugalde RN Work Phone: Hematology/Oncology Comment on above: Care Coordination (C 1D1 treatment follow up call) Start: 08-07-2024 End: 08-07-2024 ambulatory Tamiko Landa MD Facility: [facility] Start: 08-02-2024 End: 08-02-2024 Nursing evaluation of patient and report Ma Nurse Enrique Trevino Work Phone: Hematology/Oncology Comment on above: Malignant neoplasm o f urinary bladder, unspecified site (HCC) (Primary Dx) Start: 08-02-2024 End: 08-02-2024 ambulatory Chair 23 Rolando Work Phone: Hematology/Oncology Comment on above: Malignant [...] feel free to stop in or call [phone] for any questions you may have. ) Start: 07-26-2024 End: 07-26-2024 Orders Only Estefani Vargas [facility] Work Phone: Hematology/Oncology Comment on above: Malignant neoplasm o f urinary bladder, unspecified site (HCC) (Primary Dx) Start: 07-19-2024 End: 07-19-2024 ambulatory NORBERTO ANDRADE Facility:[facility] Start: 07-19-2024 End: 07-19-2024 Office outpatient new 60 minutes Norberto Andrade MD Work Phone: Hematology/Oncology Comment on above: Malignant neoplasm o f urinary bladder, unspecified site (HCC) (Primary Dx) Start: 07-18-2024 End: 07-18-2024 Chart abstracting Norberto Andrade MD Work Phone: Hematology/Oncology Start: 07-17-2024 End: 07-17-2024 Office outpatient visit 25 minutes Cady Espinosa MD Work Phone: [facility] Comment on above: Uncontrolled hyperte nsion; Unequal blood pressure in upper extremities; Mixed hyperlipidemia; Former smoker; Bilateral carotid artery stenosis; History of prostate cancer; Hx of bladder cancer; Medication course changed; Chest pressure; Shortness of breath; BMI 26.0-26.9,adult Start: 07-17-2024 End: 07-17-2024 ambulatory [facility] Start: 07-12-2024 End: 07-12-2024 ambulatory Lionel WHITNEY Facility:[facility] Start: 07-12-2024 End: 07-12-2024 Patient encounter procedure Lionel WHITNEY [facility] Start: 07-06-2024 End: 07-06-2024 ambulatory Deandre Monterroso MD Work Phone: [facility] Work Phone: Start: 07-06-2024 End: 07-06-2024 Departed Referred Deandre Monterroso MD Work Phone: [facility] Start: 07-06-2024 End: 07-06-2024 ambulatory Lionel WHITNEY Facility:[id number] Start: 07-03-2024 End: 07-03-2024 ambulatory Tamiko Landa MD Facility: [facility] Start: 06-09-2024 End: 06-09-2024 Subsequent hospital visit by physician Tania Marshall Echo/Vasc Room 2 [facility] Comment on above: Left carotid bruit; Unequal blood pressure in upper extremities Former smoker; Shortness of breath Start: 06-09-2024 End: 06-09-2024 ambulatory [facility] Start: 06-05-2024 End: 06-05-2024 ambulatory Tamiko Landa MD Facility:[facility] Start: 05-29-2024 End: 05-29-2024 ambulatory Tamiko Landa MD Facility:[facility] Start: 05-22-2024 End: 05-22-2024 Lab Drop off Lionel WHITNEY [facility] Start: 05-22-2024 End: 05-22-2024 ambulatory Lionel WHITNEY Facility:[facility] Start: 05-22-2024 End: 05-22-2024 Patient encounter procedure Lionel WHITNEY [facility] Start: 05-09-2024 End: 05-09-2024 ambulatory Lionel WHITNEY Facility:[facility] Start: 05-09-2024 End: 05-09-2024 Patient encounter procedure Lionel WHITNEY [facility] Start: 05-08-2024 End: 05-08-2024 Office consultation new/estab patient 60 min Cady Espinosa MD Work Phone: [facility] Comment on above: Unequal blood pressu re in upper extremities; Uncontrolled hypertension; Shortness of breath; Mixed hyperlipidemia; History of prostate cancer; Hx of bladder cancer; History of fractured rib; Former smoker; BMI 25.0-25.9,adult; Medication course changed Start: 05-08-2024 End: 05-08-2024 ambulatory [facility] Start: 04-10-2024 End: 04-10-2024 ambulatory Tamiko Landa MD Facility:[facility] Start: 03-28-2024 End: 03-28-2024 ambulatory [facility] [facility] Work Phone: Start: 03-28-2024 End: 03-28-2024 Patient encounter procedure [facility] Work Phone: Start: 03-27-2024 End: 03-27-2024 ambulatory Tamiko Landa MD Facility:[facility] Start: 10-26-2023 End: 10-26-2023 Patient encounter procedure Lionel WHITNEY [facility] Start: 10-11-2023 End: 10-11-2023 ambulatory MD Deandre Monterroso Work Phone: [facility] Work Phone: Start: 10-11-2023 End: 10-11-2023 Patient encounter procedure MD Deandre Monterroso Work Phone: [facility] Infectious Disease Work Phone: Start: 10-04-2023 End: 10-04-2023 Patient encounter procedure Lionel WHITNEY [facility] Start: 08-28-2023 End: 08-28-2023 Patient encounter procedure MD Deandre Monterroso Work Phone: [facility] [place] Work Phone: Start: 08-28-2023 End: 08-28-2023 ambulatory Deandre Monterroso Facility:[facility] Start: 08-12-2023 End: 08-12-2023 Patient encounter procedure MD Deandre Monterroso Work Phone: [facility] [place] Work Phone: Start: 08-12-2023 End: 08-12-2023 ambulatory MD Deandre Monterroso Work Phone: [facility] Work Phone: Start: 08-12-2023 End: 08-12-2023 ambulatory MD Deandre Monterroso Work Phone: [facility] Work Phone: Start: 08-12-2023 End: 08-12-2023 Patient encounter procedure MD Deandre Monterroso Work Phone: [facility] Neuro[facility] Work Phone: Start: 04-27-2023 End: 04-27-2023 Patient encounter procedure Lionel WHITNEY [facility] Start: 02-10-2023 End: 02-10-2023 Patient encounter procedure Qamar SMITH [facility] Start: 01-05-2023 End: 01-05-2023 Patient encounter procedure Lionel WHITNEY [facility] Start: 01-01-2023 End: 01-01-2023 ambulatory MD Deandre Monterroso Work Phone: [facility] Work Phone: Start: 01-01-2023 End: 01-01-2023 Patient encounter procedure MD Deandre Monterroso Work Phone: [facility] [place] Work Phone: Start: 12-03-2022 End: 12-03-2022 ambulatory Zoran Chavez Other [facility] [employer] Other Start: 12-03-2022 Office outpatient vi sit 15 minutes Zoran Chavez [facility] Neurosurgery Start: 11-20-2022 ambulatory ANDRIUS GIEDRAITIS Faci lity:[facility]1 Start: 10-28-2022 End: 10-29-[address] NELLY HERRERA Facility:[facility] Start: 10-27-2022 End: 11-18-[address] ZORAN CHAVEZ Facility:[facility] Start: 10-23-2022 End: 10-24-[address] ZORAN CHAVEZ Facility:[facility] Start: 10-22-2022 End: 10-22-2022 ambulatory Zoran Chavez Other [facility] [employer] Other Start: 10-22-2022 Office outpatient vi sit 15 minutes Zoran Chavez [facility] Start: 10-05-2022 End: 10-06-[address] DEANDRE MONTERROSO . Facility:[facility] Start: 09-24-2022 End: 09-25-[address] DEANDRE MONTERROSO . Facility:[facility] Start: 09-21-2022 End: 09-22-[address] LIONEL WHITNEY . Facility:[facility] Start: 09-21-2022 End: 09-21-2022 Patient encounter procedure Lionel WHITNEY [facility] Start: 08-19-2022 End: 08-20-[address] LIONEL WHITNEY . Facility:[facility] Start: 08-17-2022 End: 08-17-2022 Patient encounter procedure Lionel WHITNEY [facility] Start: 08-04-2022 End: 08-05-[address] DEANDRE MONTERROSO . Facility:[facility] Start: 07-28-2022 End: 07-29-[address] DEANDRE MONTERROSO . Facility:[facility] Start: 07-23-2022 End: 07-23-[address] LIONEL WHITNEY . Facility:[facility] Start: 07-20-2022 End: 07-20-2022 Patient encounter procedure Lionel WHITNEY [facility] Start: 07-07-2022 End: 07-07-2022 Patient encounter procedure Lionel WHITNEY [facility] Start: 06-30-2022 End: 07-01-[address] DEANDRE MONTERROSO . Facility:[facility] Start: 06-04-2022 End: 06-04-[address] DEANDRE MONTERROSO . Facility:[facility] Start: 05-25-2022 End: 05-26-[address] DEANDRE MONTERROSO . Facility:[facility] Start: 05-18-2022 End: 05-18-2022 Patient encounter procedure Lionel WHITNEY [facility] Start: 04-27-2022 End: 04-28-[address] DEANDRE MONTERROSO . Facility:[facility] Start: 04-18-2022 End: 04-18-[address] FELICIA GALDAMEZ . Facility:[facility] Start: 04-15-2022 End: 04-15-2022 Patient encounter procedure Lionel WHITNEY [facility] Start: 03-26-2022 End: 03-26-[address] LIONEL WHITNEY . Facility:[facility] Start: 03-12-2022 End: 03-13-[address] DEANDRE MONTERROSO . Facility:[facility] Start: 03-09-2022 End: 03-09-2022 Patient encounter procedure Lionel WHITNEY [facility] Start: 02-27-2022 End: 02-27-2022 Lab Drop off Lionel WHITNEY [facility] Start: 02-27-2022 End: 02-27-2022 Patient encounter procedure Lionel WHITNEY [facility] Start: 02-24-2022 End: 02-24-2022 Patient encounter procedure Lionel WHITNEY [facility] Start: 02-17-2022 End: 02-17-2022 Admission to same day surgery center MD Deandre Monterroso Work Phone: [facility] Start: 02-13-2022 End: 02-13-2022 Patient encounter procedure MD Deandre Monterroso Work Phone: [facility] Start: 02-06-2022 End: 02-06-2022 Patient encounter procedure MD Deandre Monterroso Work Phone: [facility] Start: 11-11-2021 End: 11-11-2021 Patient encounter procedure Lionel WHITNEY [facility] Start: 11-05-2021 End: 11-05-2021 Patient encounter procedure Lionel WHITNEY [facility] Start: 10-29-2021 End: 10-29-2021 Admission to same [facility] surgery center MD Deandre Monterroso Work Phone: [facility] Start: 10-27-2021 End: 10-27-2021 Patient encounter procedure MD Deandre Monterroso Work Phone: [facility] Start: 10-17-2021 End: 10-17-2021 Patient encounter procedure MD Deandre Monterroso Work Phone: [facility] Procedures Date Procedure Procedure Detail Performing Clinician Start: 10-06-2024 Arthrocentesis aspir &/inj major jt/bursa w/o us Karen MARES Work Phone: Start: 09-20-2024 Cv strs tst xers&/or rx cont ecg trcg only Cady Espinosa MD Work Phone: Start: 08-23-2024 Urnls dip stick/tabl et rgnt auto w/o microscopy Norberto Andrade MD Work Phone: Start: 08-16-2024 Urnls dip stick/tabl et rgnt [...] Transurethral resect ion of bladder neoplasm Lionel DEVONTE Start: 01-01-2023 MR lumbar spine wo con MD Deandre Monterroso Work Phone: Start: 09-21-[address] NELLY HERRERA Comment on above: Performed By: #### P SAD #### [facility] [address] [place] [address] Dr. Johnna Dixon Start: 02-17-2022 Transurethral resect [...] WHITNEY Comment on above: had recently at [facility] Start: 05-21-2014 Colonoscopy Qamar DOSS Start: 06-21-2010 Complete repair of r otator cuff Lionel WHITNEY Comment on above: right Start: 06-21-1998 Shoulder reconstruction Lionel WHITNEY Comment on above: left possibly a scre w in there per pt Start: 06-21-1964 Appendectomy Lionel STERLING Arthroplasty of the ankle Suzan WHITNEY Comment on above: 1990 Arthroscopy of knee Lionel WHITNEY Klippel-Feil sequenc e (disorder) Lionel WHITNEY Plan of Treatment Date Care Activity Detail Author Start: 09-26-2028 DTaP/Tdap/Td Vaccines (3 - Td or Tdap) DTaP/Tdap/Td Vaccines (3 - Td or Tdap) [facility] Start: 09-26-2028 Urine microalbumin profile DTaP,Tdap,Td Vaccine (3 - Td or Tdap) [facility] Start: 12-14-2027 Diabetes Screening Diabetes Screening [facility] Start: 09-14-2027 Diabetes Screening Diabetes Screening [facility] Start: 08-16-2027 Diabetes Screening Diabetes Screening [facility] Start: 07-26-2027 Diabetes Screening Diabetes Screening [facility] Start: 2026 RSV Vaccine (1 - 1-dose 75+ series) RSV Vaccine (1 - 1-dose 75+ series) [facility] Start: 09-11-2025 End: 09-11-2025 Patient encounter procedure [facility] Start: 07-17-2025 End: 07-17-2025 Patient encounter procedure 07/17/2025 10:00 AM EST Office Visit [facility] [address] [place] [address] Jr. Alexandrea Colmenares, DO [address] [facility] [address] [place] [address] [facility] Start: 02-19-2025 Influenza vaccination [facility] Start: 01-16-2025 End: 01-16-2025 Patient encounter procedure [facility] Comment on above: Arrived Start: 01-01-2025 End: 01-01-2025 Patient encounter procedure 01/01/2025 10:45 AM EDT Office Visit [address] [place] [address] Cady Espinosa MD [address] [address] [facility] Start: 12-13-2024 End: 03-14-2025 Cobalamin (Vitamin B12) [Mass/volume] in Serum or Plasma [facility] Comment on above: Expected: 12/13/2024, Expires: Start: 12-13-2024 End: 03-14-2025 Ferritin [Mass/volume] in Serum or Plasma [facility] Work Phone: Comment on above: Expected: 12/13/2024, Expires: Start: 12-13-2024 End: 03-14-2025 Folate [Mass/volume] in Serum or Plasma [facility] Comment on above: Expected: 12/13/2024, Expires: Start: 12-13-2024 End: 03-14-2025 Iron and Iron binding capacity panel - Serum or Plasma [facility] Comment on above: Expected: 12/13/2024, Expires: Start: 12-13-2024 End: 12-13-2024 Follow-up encounter 12/13/2024 1:00 PM EDT Visit (SP) Office Hematology/Oncology [address] [facility] [address] Norberto Andrade MD [address] [facility] [address] [place] [address] 3 month follow up Hematology/Oncology Comment on above: 3 month follow up Start: 12-13-2024 End: 12-13-2024 Patient encounter procedure 12/13/2024 12:45 PM EDT Office Visit [facility] [address] [facility] [place] [address] 3 month follow up [facility] Comment on above: 3 month follow up Start: 12-06-2024 End: 12-06-2024 Patient encounter procedure 12/06/2024 8:45 AM EDT Office Visit [facility] [address] [place] [id number] Jr. Alexandrea Colmenares DO [address] [facility] [address] [place] [address] Arrived [facility] Comment on above: Arrived Start: 11-16-2024 End: 11-16-2024 Patient encounter procedure 11/16/2024 10:45 AM EDT Appointment [facility] [address] [facility] [address] [place] [phone] [facility] Start: 11-10-2024 End: 11-10-2024 Patient encounter procedure 11/10/2024 9:45 AM EDT Office Visit [facility] [address] [facility] [place] [address] Karen Bustillo, PA [address] [facility] [address] [place] [address] [facility] Start: 10-27-2024 End: 10-27-2025 MR Hip - left WO contrast MR hip left wo IV contrast Imaging Routine Acute hip pain, left Expected: 10/27/2024 (Approximate), Expires: 10/27/2025 [facility] Work Phone: Comment on above: Expected: 10/27/2024 (Approximate), Expi res: 10/27/2025 Start: 10-27-2024 End: 10-27-2024 Patient encounter procedure 10/27/2024 9:45 AM EDT Office Visit [facility] [address] [place] [address] Karen Bustillo PA [address] [facility] [address] [place] [address] [facility] Start: 09-13-2024 End: 09-13-2024 Nursing evaluation of patient and report 09/13/2024 2:00 PM EDT Nurse Visit Hematology/Oncology [address] [place] [address] [place] [address] Bruno Trevino Nurse Enrique [address] [facility] [place] [address] UA to rule og UTI Hematology/Oncology Comment on above: UA to rule og UTI Start: 09-13-2024 End: 09-13-2024 ambulatory 09/13/2024 1:00 PM EDT Infusion Center Hematology/Oncology [address] [facility] [place] [address] [facility] Comment on above: [facility] Start: 09-13-2024 End: 09-13-2024 Follow-up encounter 09/13/2024 1:00 PM EDT Visit (SP) Office Hematology/Oncology [address] [facility] [place] [address] Norberto Andrade MD [address] [facility] [place] [address] 4 week lab follow up w/ [facility] Hematology/Oncology Comment on above: 4 week lab follow up w/ BCG Start: 09-13-2024 End: 09-13-2024 Patient encounter procedure 09/13/2024 12:45 PM EDT Office Visit [facility] [address] [facility] [place] [address] 4 week lab follow up w/ BCG [facility] Comment on above: 4 week lab follow up w/ BCG Start: 09-06-2024 End: 09-06-2024 Nursing evaluation of patient and report 09/06/2024 2:00 PM EDT Nurse Visit Hematology/Oncology [address] [facility] [place] [address] Bruno Trevino Nurse Enrique [address] [facility] [place] [address] UA to rule og UTI Hematology/Oncology Comment on above: UA to rule og UTI Start: 09-06-2024 End: 09-06-2024 ambulatory 09/06/2024 1:00 PM EDT Infusion Center Hematology/Oncology [address] [facility] [place] [address] New start Intravesical [facility] Comment on above: New start Intravesical [facility] Start: 09-01-2024 End: 09-01-2024 Patient encounter procedure 09/01/2024 1:15 PM EDT Appointment Radiology [facility] CT [address] [facility] [place] [address] CT CAP W IV Radiology Pet CT Comment on above: CT CAP W IV Start: 08-31-2024 End: 08-31-2024 [facility] Start: 08-31-2024 End: 08-31-2024 Patient encounter procedure [facility] Start: 08-30-2024 End: 08-30-2024 Nursing evaluation of patient and report 08/30/2024 2:30 PM EDT Nurse Visit Hematology/Oncology [address] [facility] [place] [address] Belinda Wv Nurse Enrique [address] [facility] [place] [address] UA to rule og UTI Hematology/Oncology Comment on above: UA to rule og UTI Start: 08-30-2024 End: 09-15-2025 CT Abdomen and Pelvis W contrast IV CT ABD/PEL W IVCON Radiology Routine Malignant neoplasm of urinary bladder, unspecified site (HCC) Expected: 08/30/2024, Expires: 09/15/2025 [facility] Work Phone: Comment on above: Expected: 08/30/2024, Expires: Start: 08-30-2024 End: 09-15-2025 CT Chest W contrast IV CT CHEST W IVCON Radiology Routine Malignant neoplasm of urinary bladder, unspecified site (HCC) Expected: 08/30/2024, Expires: 09/15/2025 [facility] Comment on above: Expected: 08/30/2024, Expires: Start: [...] site (HCC) Expected: 08/16/2024 (Approximate), Expires: 11/15/2024 [facility] Work Phone: Comment on above: Expected: 08/16/2024 (Approximate), Expi res: 11/15/2024 Start: 08-16-2024 End: 11-15-2024 Comprehensive metabolic 2000 panel - Serum or Plasma COMPREHENSIVE METABOLIC PANEL Lab Routine Malignant neoplasm of urinary bladder, unspecified site (HCC) Expected: 08/16/2024 (Approximate), Expires: 11/15/2024 [facility] Comment on above: Expected: 08/16/2024 (Approximate), Expi res: 11/15/2024 Start: 08-16-2024 End: 11-15-2024 Prostate specific Ag [Mass/volume] in Serum or Plasma PROSTATE-SPECIFIC ANTIGEN DIAGNOSTIC Lab Routine Malignant neoplasm of urinary bladder, unspecified site (HCC) Expected: 08/16/2024 (Approximate), Expires: 11/15/2024 [facility] Comment on above: Expected: 08/16/2024 (Approximate), Expi res: 11/15/2024 Start: 08-16-2024 End: 08-16-2024 ambulatory Hematology/Oncology Comment on above: New start Intravesical BCG BCG Start: 08-16-2024 End: 08-16-2024 Follow-up encounter 08/16/2024 1:00 PM EST Visit (SP) Office Hematology/Oncology [address] [facility] [place] [address] Norberto Andrade MD [address] [place] [address] [place] [address] 2 week lab follow up Hematology/Oncology Comment on above: 2 week lab follow up Start: 08-16-2024 End: 08-16-2024 Patient encounter procedure 08/16/2024 12:45 PM EST Office Visit [facility] [address] [facility] [place] [address] 2 week lab follow up [facility] Comment on above: 2 week lab follow up Start: 08-09-2024 End: 08-09-2024 Nursing evaluation of patient and report 08/09/2024 2:00 PM EST Nurse Visit Hematology/Oncology [address] [facility] [place] [address] Bruno Trevino Nurse Enrique [address] [facility] [place] [address] UA to rule og UTI Hematology/Oncology Comment on above: UA to rule og UTI Start: 08-09-2024 End: 08-09-2024 ambulatory Hematology/Oncology Comment on above: New start Intravesical BCG BCG Start: 08-08-2024 End: 05-08-2025 Alanine aminotransferase [Enzymatic activity/volume] in Serum or Plasma by With P-5'-P Alanine Aminotransferase Lab Routine Mixed hyperlipidemia Expected: 08/08/2024, Expires: 05/08/2025 [facility] Work Phone: Comment on above: Expected: 08/08/2024, Expires: Start: 08-08-2024 End: 05-08-2025 Aspartate aminotransferase [Enzymatic activity/volume] in Serum or Plasma by With P-5'-P Aspartate Aminotransferase Lab Routine Mixed hyperlipidemia Expected: 08/08/2024, Expires: 05/08/2025 [facility] Work Phone: Comment on above: Expected: 08/08/2024, Expires: Start: 08-08-2024 End: 05-08-2025 Lipid 1996 panel - Serum or Plasma Lipid Panel Lab Routine Mixed hyperlipidemia Expected: 08/08/2024, Expires: 05/08/2025 [facility] Work Phone: Comment on above: Expected: 08/08/2024, Expires: Start: 08-02-2024 End: 08-02-2024 Nursing evaluation of patient and report 08/02/2024 9:00 AM EST Nurse Visit Hematology/Oncology [address] [facility] [place] [address] Bruno Trevino Nurse Enrique [address] [facility] [place] [address] UA to rule og UTI Hematology/Oncology Comment on above: UA to rule og UTI Start: 08-02-2024 End: 08-02-2024 ambulatory 08/02/2024 8:30 AM EST Infusion Center Hematology/Oncology [address] [facility] [place] [address] New start Intravesical [facility] Hematology/Oncology Comment on above: New start Intravesical BCG Start: 08-02-2024 End: 08-02-2024 Follow-up encounter 08/02/2024 8:30 AM EST Visit (SP) Office Hematology/Oncology [address] [facility] [place] [address] Norberto Andrade MD [address] [facility] [address] Follow up Hematology/Oncology Comment on above: Follow up Start: 08-02-2024 End: 08-02-2024 Patient encounter procedure 08/02/2024 8:15 AM EST Office Visit [facility] [address] [facility] [place] [address] lab [facility] Comment on above: lab Start: 07-26-2024 End: 07-26-2024 Nursing evaluation of patient and report 07/26/2024 11:00 AM EST Nurse Visit Hematology/Oncology [address] [facility] [place] [address] Ingrid Ugalde, RN [address] [facility] [address] Chemo Education Hematology/Oncology Comment on above: Chemo Education Start: 07-19-2024 End: 10-18-2024 CBC W Auto Differential panel - Blood COMPLETE BLOOD COUNT AND DIFFERENTIAL Lab Routine Malignant neoplasm of urinary bladder, unspecified site (HCC) Expected: 07/19/2024, Expires: 10/18/2024 [facility] Work Phone: Comment on above: Expected: 07/19/2024, Expires: Start: 07-19-2024 End: 10-18-2024 Comprehensive metabolic 2000 panel - Serum or Plasma COMPREHENSIVE METABOLIC PANEL Lab Routine Malignant neoplasm of urinary bladder, unspecified site (HCC) Expected: 07/19/2024, Expires: 10/18/2024 [facility] Comment on above: Expected: 07/19/2024, Expires: Start: 07-19-2024 End: 07-19-2024 ambulatory 07/19/2024 11:00 AM EST Visit (SP) Office Hematology/Oncology [address] [place] [address] [place] [address] Norberto Andrade MD [address] [place] [address] [place] [address] Lionel Whitney. Dx: Bladder [...] of breath Expected: 07/17/2024 (Approximate), Expires: 07/17/2025 [facility] Work Phone: Comment on above: Expected: 07/17/2024 (Approximate), Expi res: 07/17/2025 Start: 07-17-2024 End: 07-17-2025 Lipid 1996 panel - Serum or Plasma Lipid Panel Lab Routine Uncontrolled hypertension Mixed hyperlipidemia Medication course changed Expected: 07/17/2024 (Approximate), Expires: 07/17/2025 [facility] Work Phone: Comment on above: Expected: 07/17/2024 (Approximate), Expi res: 07/17/2025 Start: 07-17-2024 End: 07-17-2025 NM Heart Perfusion W stress and W radionuclide IV Nuclear Stress Test Cardiac Nuclear Medicine Routine Chest pressure Shortness of breath Expected: 07/17/2024 (Approximate), Expires: 07/17/2025 [facility] Work Phone: Comment on above: Expected: 07/17/2024 (Approximate), Expi res: 07/17/2025 Start: 07-17-2024 End: 07-17-2026 US.doppler Carotid arteries - bilateral Vascular US Carotid Artery Duplex Bilateral Vascular Ultrasound Routine Bilateral carotid artery stenosis Chest pressure Shortness of breath Expected: 07/17/2024 (Approximate), Expires: 07/17/2026 [facility] Service Area Work Phone: Comment on above: Expected: 07/17/2024 (Approximate), Expi res: 07/17/2026 Start: 07-17-2024 End: 07-17-2024 Patient encounter procedure 07/17/2024 10:45 AM EST Office Visit [facility] [address] [facility] [address] [place] [address] Cady Espinosa MD [address] [facility] [address] [place], [place] [id number] [facility] Start: 06-21-2024 Advance Directive Discussion Advance Directive Discussion [facility] Start: 06-21-2024 Medicare Advantage Annual Wellness Visit Medicare Advantage Annual Wellness Visit [facility] Start: 06-08-2024 End: 06-08-2024 Patient encounter procedure 06/08/2024 10:45 AM EST Appointment [facility] [address] [place] [phone] [facility] Start: 05-15-2024 End: 05-08-2025 Basic metabolic 2000 panel - Serum or Plasma Basic Metabolic Panel Lab Routine Uncontrolled hypertension Expected: 05/15/2024 (Approximate), Expires: 05/08/2025 [facility] Work Phone: Comment on above: Expected: 05/15/2024 (Approximate), Expi res: 05/08/2025 Start: 05-08-2024 End: 05-08-2026 US Heart Transthoracic Transthoracic Echo Complete Echocardiography Routine Former smoker Shortness of breath Expected: 05/08/2024 (Approximate), Expires: 05/08/2026 [facility] Service Area Work Phone: Comment on above: Expected: 05/08/2024 (Approximate), Expi res: 05/08/2026 Start: 02-20-2024 Covid-19 Vaccine () Covid-19 Vaccine () [facility] Start: 02-20-2024 COVID-19 Vaccine () COVID-19 Vaccine () [facility] Start: 02-20-2024 Influenza vaccination Influenza Vaccine (#1) [facility] Start: 08-12-2023 Patient referral [facility] Work Phone: Start: 08-12-2023 X-ray of cervical spine XR cervical spine w flex/ext [facility] Start: 08-12-2023 X-ray of lumbar spine, six views including bending views XR lumbar spine 6V w bending [facility] Start: 08-12-2023 XR Cervical spine Views W flexion and W extension [facility] Start: 08-12-2023 XR Lumbar spine Views [facility] Start: 02-17-2022 End: 02-17-2022 [facility] Work Phone: Start: 02-17-2022 Transurethral resection of bladder neoplasm OR Cysto/TURBT/Bladder Biopsy/Fulg (Not Applicable) [facility] Start: 02-17-2022 End: 02-17-2022 Admission to same day surgery center Departed Surgical Day Care [facility] [place] Start: 02-13-2022 End: 02-13-2022 Patient encounter procedure Departed Clinical [facility] Start: 02-03-2016 Abdominal aortic aneurysm screening Abdominal Aortic Aneurysm (AAA) Screening [facility] Start: 2011 RSV High Risk: (Elderly (60+) or Population) (1 - Risk 60-74 years 1-dose series) RSV High Risk: (Elderly (60+) or Population) (1 - Risk 60-74 years 1-dose series) [facility] Start: 2011 RSV Vaccine (1 - Risk 60-74 years 1-dose series) RSV Vaccine (1 - Risk 60-74 years 1-dose series) [facility] Start: 02-03-1996 Diabetes Screening Diabetes Screening [facility] Start: 02-03-1996 Screening for malignant neoplasm of colon [facility] Start: 1986 Lipid panel Lipid Screening [facility] Start: 1969 Anxiety Screening Anxiety Screening [facility] Start: 1969 Depression Screening Depression Screening [facility] Start: 1969 Diabetes mellitus screening Diabetes Screening [facility] Start: 1969 Hepatitis C screening Hepatitis C Screening [facility] Start: 1950 Abdominal aortic aneurysm screening Abdominal Aortic Aneurysm Screening [facility] Start: 1951 Lipid panel Lipid Panel [facility] Start: 1951 Medicare Annual Wellness Visit Medicare Annual Wellness Visit (AWV) [facility] Start: 1951 Screening for malignant neoplasm of colon [facility] Start: 1951 Thyroid stimulating hormone measurement TSH Level [facility] CT Abdomen and Pelvi s W contrast IV CT ABD/PEL W IVCON Radiology Routine Malignant neoplasm of urinary bladder, unspecified site (HCC) 09/01/2024 3:07 PM EDT [facility] Work Phone: CT Chest W contrast IV CT CHEST W IVCON Radiology Routine Malignant neoplasm of urinary bladder, unspecified site (HCC) 09/01/2024 3:07 PM EDT [facility] Microbial culture of sputum [facility] MR Cervical spine WO and W contrast IV [facility] Patient referral [facility] Work Phone: UA DIP OB, URINE (POC) UA DIP OB , URINE (POC) Lab Routine Malignant neoplasm of urinary bladder, unspecified site (HCC) 1 Occurrences starting 08/09/2024 [facility] Work Phone: Comment on above: 1 Occurrences starting 08/09/2024 UA DIP OB, URINE (POC) UA DIP OB , URINE (POC) Lab Routine Malignant neoplasm of urinary bladder, unspecified site (HCC) 1 Occurrences starting 09/13/2024 [facility] Comment on above: 1 Occurrences starting 09/13/2024 UA DIP, URINE (POC) UA DIP, URIN E (POC) Lab Routine Malignant neoplasm of urinary bladder, unspecified site (HCC) Ordered: 08/02/2024 [facility] Work Phone: Comment on above: Ordered: 08/02/2024 UA DIP, URINE (POC) UA DIP, URIN E (POC) Lab Routine Malignant neoplasm of urinary bladder, unspecified site (HCC) Ordered: 08/09/2024 [facility] Comment on above: Ordered: 08/09/2024 UA DIP, URINE (POC) UA DIP, URIN E (POC) Lab Routine Malignant neoplasm of urinary bladder, unspecified site (HCC) Ordered: 08/16/2024 [facility] Work Phone: Comment on above: Ordered: 08/16/2024 UA DIP, URINE (POC) UA DIP, URIN E (POC) Lab Routine Malignant neoplasm of urinary bladder, unspecified site (HCC) Ordered: 08/30/2024 [facility] Work Phone: Comment on above: Ordered: 08/30/2024 UA DIP, URINE (POC) UA DIP, URIN E (POC) Lab Routine Malignant neoplasm of urinary bladder, unspecified site (HCC) Ordered: 09/13/2024 [facility] Work Phone: Comment on above: Ordered: 09/13/2024 Immunizations Immunization Date Immunization Notes Care Provider [facility] 12-12-2024 bacillus calmette-dena vaccine LAUREN CROOK [facility] 12-05-2024 bacillus calmette-dena vaccine LAUREN CROOK [facility] 11-29-2024 bacillus calmette-dena vaccine LAUREN CROOK [facility] 08-14-2024 influenza virus vaccine, unspecified formulation Jr. Darrian DICKSON Work Phone: [facility] 07-13-2023 zoster vaccine recombinant Lionel WHITNEY [facility] 03-23-2023 influenza virus vaccine, unspecified formulation Lionel WHITNEY [facility] 03-23-2023 zoster vaccine recombinant Lionel WHITNEY [facility] 04-16-2022 Moderna Bivalent Booster Vaccination Karen MARES Work Phone: [facility] 04-16-2022 SARS-CoV-2 (COVID-19 ) [id number] Qamar SMITH [facility] 03-27-2022 influenza virus vaccine, unspecified formulation Qamar SMITH [facility] 03-27-2022 Influenza, High-dose Seasonal, Quadrivalent, Preservative Free Karen MARES Work Phone: [facility] 05-06-2021 COVID-19 mRNA-1273 (Moderna) MD Deandre Monterroso Work Phone: [facility] 09-19-2020 COVID-19 mRNA-1273 (Moderna) MD Deadnre Monterroso Work Phone: [facility] Comment on above: Result Comment: 2022: [id number] 08-22-2020 COVID-19 mRNA-1273 (Moderna) MD Deandre Monterroso Work Phone: [facility] Comment on above: Result Comment: 2022: [id number] 06-21-2020 SARS-CoV-2 (COVID-19 ) mRNA-1273 vaccine Lionel WHITNEY [facility] 05-23-2020 influenza virus vaccine, unspecified formulation Qamar SMITH [facility] 05-23-2020 Influenza, Seasonal, Quadrivalent, Adjuvanted Karen MARES Work Phone: [facility] 04-03-2020 influenza virus vaccine, unspecified formulation Qamar SMITH [facility] 04-03-2020 influenza, high dose seasonal, preservative-free Karen MARES Work Phone: [facility] 05-29-2019 influenza virus vaccine, unspecified formulation Qamar SMITH [facility] 05-29-2019 Seasonal, quadrivale nt, recombinant, injectable influenza vaccine, preservative free Karen MARES Work Phone: [facility] 05-22-2019 influenza, injectabl e, quadrivalent, preservative free Norberto Andrade MD Work Phone: [facility] 04-14-2019 influenza virus vaccine, unspecified formulation Norberto Andrade MD Work Phone: [facility] 04-14-2019 influenza, unspecifi ed formulation Qamar SMITH [facility] 09-26-2018 tetanus and diphther ia toxoids, adsorbed, preservative free, for adult use (2 Lf of tetanus toxoid and 2 Lf of diphtheria toxoid) Qamar SMITH [facility] 10-11-2017 pneumococcal polysaccharide vaccine, 23 valent Qamar SMITH [facility] 07-22-2016 pneumococcal conjuga te vaccine, 13 valent Qamar SMITH [facility] 06-29-2013 tetanus toxoid, redu mirtha diphtheria toxoid, and acellular pertussis vaccine, adsorbed Qamar LUIS [facility] 03-10-2000 Td(adult) unspecifie d formulation Qamar LUIS [facility] Payers Date Payer Category Payer Medicare [id number] 2023 Self-pay [id number] 2020 Medicare (Managed Care) 1.2. [id number] 2020 Unknown [id number]. 1.13.159.2. [id number] 1959 Medicare [id number] 1959 Unknown [id number] 2.16.840.1.749554.19 1951 Unknown [id number] 2.16.840.1.548216.3.579.2. 593 1951 Unknown [id number] 2.16.840.1.806411.3.579.2. 593 1951 Unknown [id number] 2.16.840.1.918903.3.579.2. 593 1951 Unknown [id number] 2.16.840.1.565900.3.579.2. 593 1951 Unknown [id number] 2.16.840.1.549589.3.579.2. 593 1951 Unknown [id number] 2.16.840.1.193127.3.579.2. 593 1951 Unknown [id number] 2.16.840.1.142204.3.579.2. 593 1951 Unknown [id number] 2.16.840.1.979797.3.579.2. 593 1951 Unknown [id number] 2.16.840.1.012480.3.579.2. 593 1951 Unknown [id number] 2.16.840.1.509561.3.579.2. 593 1951 Unknown [id number] 2.16.840.1.950372.3.579.2. 593 1951 Unknown [id number] 2.16.840.1.377043.3.579.2. 593 1951 Unknown [id number] 2.16.840.1.669870.3.579.2. 593 1951 Unknown [id number] 2.16.840.1.446435.3.579.2. 593 1951 Unknown [id number] 2.16.840.1.891607.3.579.2. 593 1951 Unknown [id number] 2.16.840.1.321352.3.579.2. 593 1951 Unknown [id number] 2.16.840.1.614791.3.579.2. 593 1951 Unknown [id number] 2.16.840.1.429318.3.579.2. 593 1951 Unknown [id number] 2.16.840.1.810193.3.579.2. 593 1951 Unknown [id number] 2.16.840.1.002572.3.579.2. 727 1951 Unknown [id number] 2.16.840.1.263112.3.579.2. 727 1951 Unknown [id number] 2.16.840.1.568139.3.579.2. 196 1951 Unknown [id number] 2.16.840.1.107041.3.579.2. 196 1951 Unknown [id number] 2.16.840.1.064333.3.579.2. 1951 Unknown [id number] 2.16.840.1.415407.3.579.2. 1951 Unknown [id number] 2.16.840.1.208307.3.579.2. 1951 Unknown [id number] 2.16.840.1.510728.3.579.2. 1951 Unknown [id number] 2.16.840.1.990631.3.579.2. 1951 Unknown [id number] 2.16.840.1.847419.3.579.2. 1245 1951 Unknown [id number] 2.16.840.1.832487.3.579.2. 1245 1951 Unknown [id number] 2.16.840.1.908950.3.579.2. 1245 1951 Unknown [id number] 2.16.840.1.858367.3.579.2. 1245 1951 Unknown [id number] 2.16.840.1.822711.3.579.2. 1245 1951 Unknown [id number] 2.16.840.1.080356.3.579.2. 1245 1951 Unknown [id number] 2.16.840.1.409322.3.579.2. 1245 1951 Unknown [id number] 2.16.840.1.180061.3.579.2. 727 1951 Unknown [id number] 2.16.840.1.964017.3.579.2. 727 1951 Unknown [id number] 2.16.840.1.381555.3.579.2. 727 1951 Unknown [id number] 2.16.840.1.469066.3.579.2. 72 1951 Unknown [id number] 2.16.840.1.985789.3.579.2. 72 1951 Unknown [id number] 2.16.840.1.275958.3.579.2. 72 1951 Unknown [id number] 2.16.840.1.212827.3.579.2. 124 1951 Unknown [id number] 2.16.840.1.491362.3.579.2. 124 1951 Unknown [id number] 2.16.840.1.451896.3.579.2. 1951 Unknown [id number] 2.16.840.1.694156.3.579.2. 72 1951 Unknown [id number] 2.16.840.1.234477.3.579.2. 72 1951 Unknown [id number] 2.16.840.1.899760.3.579.2. 125 1951 Unknown [id number] 2.16.840.1.401561.3.579.2. 125 1951 Unknown [id number] 2.16.840.1.918844.3.579.2. 1259 1951 Unknown [id number] 2.16.840.1.704942.3.579.2. 125 1951 Unknown [id number] 2.16.840.1.151285.3.579.2. 1259 1951 Unknown [id number] 2.16.840.1.882459.3.579.2. 125 1951 Unknown [id number] 2.16.840.1.606387.3.579.2. 1259 Medicare Medicare [id number] Private Health Insurance [id number] Unknown [place] [id number] Unknown [id number] 2.16.840.1.327285.3.579.2. 531 Unknown [id number] 2.16.840.1.032090.3.579.2. 531 Unknown [id number] 2.16.840.1.047818.3.579.2. 531 Social History Date Type Detail Facility Start: 10-17-2021 End: 01-12-2023 Tobacco smoking status NHIS Ex-smoker (finding) [facility] Comment on above: pt quit smoking 10+ yrs ago Start: 1950 Sex Assigned At Male [facility] Start: 11-05-2021 Tobacco smoking status Never s moked tobacco (finding) [facility] Tobacco smoking status Never [facility] [place] Comment on above: pt quit smoking 10+ yrs ago Start: 05-08-2024 End: 01-16-2025 Sex Assigned At Male [facility] [place] End: 06-21-2003 History of tobacco use Current smoker [facility] Work Phone: End: 06-21-2003 History of tobacco use Cigarette Smoker [facility] Work Phone: Start: 01-12-2023 End: 05-08-2024 Tobacco use and exposure Smokeless tobacco non-user [facility] Work Phone: Start: 05-08-2024 End: 01-16-2025 Alcoholic beverage intake Current drinker of alcohol (finding) [facility] Work Phone: Start: 05-08-2024 End: 01-16-2025 History of Social function [facility] Work Phone: Start: 05-08-2024 Alcohol Comment socially [facility] Work Phone: Start: 1950 Sex assigned at Not on file [facility] Work Phone: Start: 04-28-2024 End: 09-20-2024 Exposure to SARS-CoV-2 (event) Not sure [facility] Start: 09-09-2018 End: 07-08-2024 Sex Male (finding) [facility] Start: 01-22-2023 Alcohol Comment caffeine 3-4 c ups per day [facility] Sexual Orientation [facility] Medical Equipment Procedure Code Equipment Code Equipment Original Text Equipment Identifier Dates Transurethral resection of bladder tumor (TURBT) with cystoscopy Polymeric ureteral stent [id number] FDA Start: 10-29-2021 Decompression, spine, cervical, posterior approach Bone-screw internal spinal fixation system, non-sterile ()[id number] FDA Start: 04-18-2020 Decompression, spine, cervical, posterior approach Bone-screw internal spinal fixation system, non-sterile ()[id number] FDA Start: 04-18-2020 Decompression, spine, cervical, posterior approach Bone-screw internal spinal fixation system, non-sterile ()[id number] FDA Start: 04-18-2020 Decompression, spine, cervical, posterior approach Bone-screw internal spinal fixation system, non-sterile ()[id number] FDA Start: 04-18-2020 Decompression, spine, cervical, posterior approach Bone-screw internal spinal fixation system, non-sterile ()[id number] FDA Start: 04-18-2020 Goals Date Patient Goal Desired Activity /State Functional Status Date Assessment Result Facility 10-24-2024 Functional Status N/A [facility] 07-12-2024 Functional Status N/A [facility] 05-09-2024 Functional Status N/A [facility] 10-26-2023 Functional Status N/A [facility] 10-04-2023 Functional Status N/A [facility] 04-27-2023 Functional Status N/A [facility] 02-10-2023 Functional Status N/A [facility] 01-05-2023 Functional Status N/A [facility] 02-24-2022 Functional Status N/A [facility] Clinical Notes 11-04-2021 to 01-16-2025 Jr. Alexandrea Colmenares, DO - 01/16/2025 9:45 AM EDTPatient InstructionsVenNorberto brown MD - 12/13/2024 1:00 PM EDTJr. Alexandrea Colmenares, DO - 12/06/2024 8:45 AM EDTPatient Instructions Note Date & Type Note Facility 01-16-2025 History of Present illness Narrative Images from the original note were not included. HISTORY OF PRESENT ILLNESS: EST PT Mary Diaz is an 74 y.o. @ male. 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 [...] length. He has been taking omega XL wcgo-hed-iexbdxk and had good relief with this. We [...] requiring urgent evaluation. documented in this encounter [facility] 01-15-2025 Note Patient Education Oncology Bladder Cancer Bladder [...] Follow these instructions at home: ??? Take kxbl-bac-osauzde and prescription medicines only as told by [...] important. Where to find more information ??? [place] [employer] (ACS): cancer.org ??? National Cancer [employer] (NCI): cancer.gov Contact a health care provider [...] information is n (more content not included)... [facility] 12-13-2024 Instructions Norberto Andrade MD - 12/13/2024 1:46 PM EDT Blood work today F/u with Urology . documented in this encounter [facility] 12-13-2024 History of Present illness Narrative Images from the original note were not included. PATIENT NAME: Mary Diaz [facility] NO.: [id number] ATTENDING PHYSICIAN: Norberto Andrade MD DATE OF SERVICE: 12/13/[address] Lionel Whitney [id number] [facility] [phone] thank you for referring Mary Diaz for an opinion regarding non muscle invasive bladder cancer. Some of the elements of this note have been copied from my previous progress note dated 09/13/24. All the information has been reviewed carefully. 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 Urology recommended induction BCG x 6 treatments. H/o prostate cancer s/p radical prostatectomy in 08/2014. No smoking Occasional alcohol Doing well No major complaints. 08/02/24: - Doing well - No major complaints - C/o left hip pain - Doing intraarticular steroid injection next week on Wednesday. 08/16/24: - Doing well - No major complaints - C/o easy bruising 09/13/24: - Week 6 BCG today - Doing well - No major complaints. - Scheduled for cystoscopy in October 2024. - CT scans unremarkable. 12/13/24: - Doing well - No major complaints - Had cystoscopy in September 2024. - Pt completed maintenance BCG treatments weekly x 3. Finished yesterday. Current Outpatient Medications Medication Sig tiZANidine (ZANAFLEX) 4 mg tablet Take 4 mg by mouth every 6 hours as needed. aspirin 81 mg chewable tablet Take 81 mg by mouth every 48 hours. rosuvastatin (CRESTOR) 20 mg tablet Take 20 mg by mouth. Fluorouracil 5 % cream Apply to directed areas on the forearms and backs of hands twice a day x 14 days. Dispense 30 day supply but only use for 14 days. HYDROcodone-acetaminophen (NORCO) 5-325 mg per tablet Take 1 tablet by mouth at bedtime as needed. ypmxaffjfqa-xakvxnzfl-cwpfwthr (TRELEGY ELLIPTA) 100-62.5-25 mcg inhalation powder = 1 puff(s), Inhalation, Daily, Refills(s) 0 iv contrast (will be provided with radiology test) CT Chest ABD/PEL-Inject, intravenously, [...] in the CT contrast administration guidelines link. enteric contrast (will be provided with radiology test) For CT CHESTABD/PEL W IVCON Routine order Administer, As Directed One Time Only, via Oral, Rectal, both Oral and Rectal, Enteric Tube, Stoma or Indwelling Catheter, Enteric Contrast as designated per enteric contrast guidelines doxazosin (CARDURA) 1 mg tablet Take 1 mg by mouth. mv-min/folic/K1/lycopen/lutein (MEN 50 PLUS MULTIVITAMIN ORAL) Take [...] Take 100 mg by mouth as needed. cjgaukfnugs-etjrjvrli-cxtghquo (TRELEGY ELLIPTA) 100-62.5-25 mcg inhalation powder Inhale [...] tingling of hands/feet. No weakness. PHYSICAL EXAMINATION: BP 135/80 Pulse 74 Temp 36.5 C (97.7 F) (Temporal) Resp 18 Wt 84.4 kg (186 lb 1.1 oz) SpO2 99% There were no vitals taken for this [...] : Deferred LABS: Glucose (mg/dL) Date Value 09/13/2024 93 Potassium (mmol/L) Date Value 09/13/2024 4.5 Sodium (mmol/L) Date Value 09/13/2024 138 Chloride (mmol/L) Date Value 09/13/2024 103 CO2 (mmol/L) Date Value 09/13/2024 24 Creatinine (mg/dL) Date Value 09/13/2024 1.34 BUN (mg/dL) Date Value 09/13/2024 21 Anion Gap (mmol/L) Date Value 09/13/2024 11 Calcium, Total (mg/dL) Date Value 09/13/2024 10.0 Protein, Total (g/dL) Date Value 09/13/2024 6.6 Albumin (g/dL) Date Value 09/13/2024 4.5 Bilirubin, Total (mg/dL) Date Value 09/13/2024 0.4 Alkaline Phosphatase (U/L) Date Value 09/13/2024 56 AST (U/L) Date Value 09/13/2024 16 ALT (U/L) Date Value 09/13/2024 19 WBC Date Value Ref Range Status 09/13/2024 8.26 3.70 - 11.00 k/uL Final RBC Date Value Ref Range Status 09/13/2024 4.05 (L) 4.20 - 6.00 m/uL Final Hemoglobin Date Value Ref Range Status 09/13/2024 12.4 (L) 13.0 - 17.0 g/dL Final Hematocrit Date Value Ref Range Status 09/13/2024 37.8 (L) 39.0 - 51.0 % Final MCV Date Value Ref Range Status 09/13/2024 93.3 80.0 - 100.0 fL Final MCH Date Value Ref Range Status 09/13/2024 30.6 26.0 - 34.0 pg Final MCHC Date Value Ref Range Status 09/13/2024 32.8 30.5 - 36.0 g/dL Final RDW-CV Date Value Ref Range Status 09/13/2024 13.2 11.5 - 15.0 % Final Platelet Count Date Value Ref Range Status 09/13/2024 267 150 - 400 k/uL Final MPV Date Value Ref Range Status 09/13/2024 9.6 9.0 - 12.7 fL Final Abs Neut Date Value Ref Range Status 09/13/2024 5.51 1.45 - 7.50 k/uL Final Lymphocytes % Date Value Ref Range Status 09/13/2024 22.3 % Final Abs Lymph Date Value Ref Range Status 09/13/2024 1.84 1.00 - 4.00 k/uL Final Monocytes % Date Value Ref Range Status 09/13/2024 8.7 % Final Abs [place] Date Value Ref Range Status 09/13/2024 0.72 <0.87 k/uL Final Abs Eosin Date Value Ref Range Status 09/13/2024 0.13 <0.46 k/uL Final Basophils % Date Value Ref Range Status 09/13/2024 0.4 % Final Abs Baso Date Value Ref Range Status 09/13/2024 0.03 <0.11 k/uL Final PATH: IMAGING: ASSESSMENT AND 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 - Urology recommended induction BCG x 6 treatments. - Completed 6 weekly induction BCG treatments on 09/13/24 - CT scans on 09/01/24 are unremarkable. - Last PSA was 0.03 on 08/16/24. PLAN: 1. Malignant neoplasm of urinary bladder, unspecified site (HCC) - ICD9: 188.9, ICD10: C67.9 - He completed maintenance BCG weekly x 3 treatments on 12/12/24. Given at office. - F/u with Urology - Advised him to call us back in the future if Urology cannot obtain BCG treatments. - Ordered blood work today - F/u with PCP - All his questions answered in detail - F/u here if needed. Dear Dr. Lionel Whitney [phone] [facility] [phone] thank you for allowing me to participate in Mary Diaz care, if there are any questions or concerns please do not hesitate to contact me at the number below. I spent a total of 20 minutes on the date of the service which included preparing to see the patient, kcyl-hb-gghj patient care, completing clinical documentation, obtaining and/or reviewing separately obtained history, performing a medically appropriate examination, counseling and educating the patient/family/caregiver, ordering medications, tests, or procedures, communicating with other HCPs (not separately reported), independently interpreting results (not separately reported), communicating results to the patient/family/caregiver, and care coordination (not separately reported). Norberto Andrade MD. Hematology/Medical Oncology [facility] [phone] CC: documented in this encounter [facility] 12-13-2024 Note HNO ID: [id number] Author: NORBERTO ANDRADE MD Service: ? Author Type: Physician Type: Progress Notes Filed: 12/13/2024 14:20 Note Text: PATIENT NAME: Mary Diaz [facility] NO.: [id number] ATTENDING PHYSICIAN: Norberto Andrade MD DATE OF SERVICE: 12/13/[address] Lionel Whitney [address] [facility] [phone] thank you for referring Mary Diaz for an opinion regarding non muscle invasive bladder cancer. Some of the elements of this note have been copied from my previous progress note dated 09/13/24. All the information has been reviewed carefully. 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 Urology recommended induction BCG x 6 treatments. H/o prostate cancer s/p radical prostatectomy in 08/2014. No smoking Occasional alcohol Doing well No major complaints. 08/02/24: - Doing well - No major complaints - C/o left hip pain - Doing intraarticular steroid injection next week on Wednesday. 08/16/24: - Doing well - No major complaints - C/o easy bruising 09/13/24: - Week 6 BCG today - Doing well - No major complaints. - Scheduled for cystoscopy in October 2024. - CT scans unremarkable. 12/13/24: - Doing well - No major complaints - Had cystoscopy in September 2024. - Pt completed maintenance BCG treatments weekly x 3. Finished yesterday. Current Outpatient Medications Medication Sig tiZANidine (ZANAFLEX) 4 mg tablet Take 4 mg by mouth every 6 hours as needed. aspirin 81 mg chewable tablet Take 81 mg by mouth every 48 hours. rosuvastatin (CRESTOR) 20 mg tablet Take 20 mg by mouth. Fluorouracil 5 % cream Apply to directed areas on the forearms and backs of hands twice a day x 14 days. Dispense 30 day supply but only use for 14 days. HYDROcodone-acetaminophen (NORCO) 5-325 mg per tablet Take 1 tablet by mouth at bedtime as needed. jkilmvdhqfk-tsusjyutt-ejfkwjvz (TRELEGY ELLIPTA) 100-62.5-25 mcg inhalation powder = 1 puff(s), Inhalation, Daily, Refills(s) 0 iv contrast (will be provided with radiology test) CT Chest ABD/PEL-Inject, intravenously, [...] in the CT contrast administration guidelines link. enteric contrast (will be provided with radiology test) For CT CHESTABD/PEL W IVCON Routine order Administer, As Directed One Time Only, via Oral, Rectal, both Oral and Rectal, Enteric Tube, Stoma or Indwelling Catheter, Enteric Contrast as designated per enteric contrast guidelines doxazosin (CARDURA) 1 mg tablet Take 1 mg by mouth. mv-min/folic/K1/lycopen/lutein (MEN 50 PLUS MULTIVITAMIN ORAL) Take [...] Take 100 mg by mouth as needed. zmzblvmblbp-ofvfgrtuk-xnnpyjun (TRELEGY ELLIPTA) 100-62.5-25 mcg inhalation powder Inhale [...] fusion RADICAL PROSTATECTOMY 08/2014 SHOULDER SURGERY HX Reconstructi (more content not included)... [facility] 12-11-2024 Note DC Cardiology - [facility] Subjective Mary Sue Emily is a 74 y.o. year old male patient being seen for to establish care as a new patient. Per patient he has been seeing another Manager Process for , Patient states he has had numerous test and has not been told the results and has been given medication and knows nothing as to why he is taking these medication. Patient states he is here for a second opinion. 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 Patient Active Problem List Diagnosis Bilateral tinnitus Bladder cancer (CMS/HCC) BMI 23.0-23.9, adult BMI 26.0-26.9,adult Change in bowel habits Cervical spondylosis with radiculopathy Chest pressure Paresthesia of skin Chronic GERD GERD (gastroesophageal reflux disease) Chronic obstructive pulmonary disease (CMS/HCC) Chronic pain Ecchymosis Erectile dysfunction after radical prostatectomy Essential hypertension Former smoker Glenohumeral arthritis, left History of colonic polyps History of fractured rib History of kidney stones History of prostate cancer Idiopathic gout Iron deficiency anemia Bilateral carotid artery disease Medication course changed Sensorineural hearing loss, bilateral Shortness of breath Osteoarthritis Shoulder impingement syndrome Spondylolisthesis, cervical region Unequal blood pressure in upper extremities Umbilical hernia Family History Problem Relation Name Age of Onset Cerebral aneurysm Mother Dementia Father Hypertension Sister Social History Tobacco Use Smoking status: Former Types: Cigarettes Passive exposure: Past Smokeless tobacco: Never Substance Use Topics Drug use: Never HPI Mary is seen as a new patient referred from Dr. Monterroso's office for management of hypertension. His prior medical history is significant for hypertension currently on lisinopril 40 mg and hydrochlorothiazide 12.5 mg daily. Previously he was intolerant to metoprolol and amlodipine [Edema]. He has history of carotid stenosis, moderate by ultrasound in May 2024. He has history of hyperlipidemia on treatment. He was tried on cardura 1 mg daily and this dropped his blood pressure significantly. He stopped it. There is prior mention of possible difference in arm pressure with the left arm blood pressure being lower than the right arm blood pressure. he underwent a stress test in September 2024 for investigation of symptoms of chest pain and shortness of breath. This did not show evidence of ischemia. One of his main issues is diffuse arthritis for which he is taking diclofenac 75 mg once or twice daily. He denies chest pain. He has no neurological symptoms. He has shortness of breath on exertion NYHA class II symptoms. He has a lot of deconditioning related to his arthritis. In addition he has a lot of easy bruisability in his upper extremities. No bleeding issues. He takes pantoprazole daily. Review of Systems Cardiovascular: Positive for dyspnea on exertion. Respiratory: Positive for shortness of breath. Hematologic/Lymphatic: Bruises/bleeds easily. Musculoskeletal: Positive for arthritis. Objective Visit Vitals BP 142/78 (BP Location: Left arm, Patient Position: Sitting) Pulse 91 Ht 1.829 m (6') Wt 83.5 kg (184 lb) SpO2 99% BMI 24.95 kg/m??? Smoking Status Former BSA 2.06 m??? Physical Exam Constitutional: Appearance: He is well-developed. He is not ill-appearing. HENT: Head: Normocephalic and atraumatic. Nose: Nose normal. Eyes: General: No scleral icterus. Pupils: Pupils are equal, round, and reactive to light. Neck: Thyroid: No thyromegaly. Vascular: No JVD. Cardiovascular: Rate and Rhythm: Normal rate and regular rhythm. Pulses: Radial pulses are 2+ on the right side and 2+ on the left side. Heart sounds: Normal heart sounds. No murmur heard. No friction rub. No gallop. Pulmonary: Effort: Pulmonary effort is normal. No respiratory distress. Breath sounds: Normal breath sounds. No wheezing or rales. Chest: Chest wall: No tenderness. Abdominal: General: Bowel sounds are normal. There is no distension. Palpations: Abdomen is soft. Tenderness: There is no abdominal tenderness. Musculoskeletal: General: No swelling. Cervical back: Neck supple. Skin: General: Skin is warm and dry. Findings: Ecchymosis present. Neurological: General: No focal deficit present. Mental Status: He is alert and oriented to person, place, and time. Psychiatric: Mood and Affect: Mood normal. Behavior: Behavior is cooperative. Judgment: Judgment normal. Allergies Allergies Allergen Reactions Codeine Unknown Oxycodone-Acetaminophen Unknown Other Reaction(s): agitation, irritation pt states this does not work for pt, pt is not allergic to vicodin Tizanidine Hcl Unknown Other Reaction(s): Unknown Medications Current Outpatient Medications: diclofenac (Voltaren) 75 mg EC tabl (more content not included)... [facility] 12-06-2024 History of Present illness Narrative Images from the original note were not included. HISTORY OF PRESENT ILLNESS: EST PT Mary Diaz is an 74 y.o. @ male. (EST PT) (LAST APPT W/ HEIDY) - RECHECK (L) HIP ; S/P CORTISONE INJ 11/10/24 (3 WKS, 5 DAYS) - HERE TO DISCUSS OPTIONS XRAY (L) HIP 07/04/24 [facility] (PUSHED INTO PACS) MRI 11/09/24 IN EPIC NO MDP / PREDNISONE (L) HIP BURSA INJ 11/10/24, 10/06/24 NO PT PAIN MGMT; MULTIPLE INJ TRIED CLINICAL UNIT COORDINATOR; SOME TEMP RELIEF S/P CORTISONE INJ - WITH RELIEF. NOTES HE IS DOING BETTER. CONTINUES HEP. ADMITS LATERAL DISCOMFORT - WORSE HS. ADMITS RADIATION TO KNEE. GOOD ROM. ADMITS DIFFICULTY WITH HEP - CROSSING LEG. ADMITS TIGHTNESS / STIFFNESS. MINIMAL WEAKNESS. WAKING HS WITH DISCOMFORT. CELEBREX - NO RELIEF. ICING / HEATING - TEMPORARY RELIEF. VOLTAREN - SOME RELIEF. TYL ARTHRITIS PRN. CURRENTLY BEING TX FOR RECENT BLADDER CA ALLERGIES: Allergies Allergen Reactions Hydrocodone Other Reaction(s): anxiety Oxycodone-Acetaminophen Other Reaction(s): agitation, irritation pt states this does not work for pt, pt is not allergic to vicodin Tizanidine Hcl Other Reaction(s): Unknown Codeine Rash Other Reaction(s): hives/rashes Other Reaction(s): Agitation, hives/rashes Agitation, Doesn't work HOME MEDICATIONS: Current Outpatient Medications Medication Instructions celecoxib (CELEBREX) 200 mg, Oral, Daily, Take with food Paonqydmgaz-Bruannbch-Icydph (Trelegy Ellipta) 100-62.5-25 MCG/ACT aerosol powder Inhale. [...] none Tenderness: present Greater trochanteric region pain: mild Greater trochanteric region pain comment: Patient states pain with palpation is improved from prior visit significantly Range of Motion Left Left hip range [...] to calculate BMI. Tobacco Use: Medium Risk (12/06/2024) Patient History Smoking Tobacco Use: Former Smokeless Tobacco Use: Never Passive Exposure: Not on file Alcohol Use: Not on file IMAGING: Procedures No orders of the defined types were placed in this encounter. ASSESSMENT: ICD-10-CM 1. Trochanteric bursitis of left hip M70.62 2. Acute hip pain, left M25.552 PLAN: We have discussed his symptoms, physical exam, MRI, and results from his recent injection. Recommendations Lidoderm patches and stretching program for his left bursitis. We'll see him back in 1 month if his symptoms persist or worsen we may recommend a Medrol Dosepak and/or injection at that time. Questions answered in laymen terms at the bedside. The diagnosis, home exercise plan and any ongoing restrictions/ recommendations reviewed. If unable to be reached in office, I recommend evaluation at nearest Emergency Room if any symptoms worsened or new symptoms develop for requiring urgent evaluation. documented in this encounter [facility] 12-05-2024 Hospital Discharge instructions Patient Education 12/05/2024 09:58:02 Bladder Cancer Bladder Cancer Bladder cancer is [...] cells. Follow these instructions at home: Take saii-fkf-jspczkp and prescription medicines only as told by [...] is important. Where to find more information [place] [employer] (ACS): cancer.org National Cancer Reeders (NCI): cancer.gov Contact a health care provider [...] provider. Document Revised: 05/18/2022 Document Reviewed: 05/18/2022 [employer] Patient Education 2023 [employer]. Follow Up Care 11/20/2024 11:57:52 With:LAUREN CROOK PA-C, URL Address: [address] [place] [address] When:Within 1 Week(s) [facility] 12-05-2024 Note Patient Education Oncology Bladder Cancer Bladder [...] Follow these instructions at home: ??? Take otpk-kcw-whwaail and prescription medicines only as told by [...] important. Where to find more information ??? [place] [employer] (ACS): cancer.org ??? National Cancer Reeders (NCI): cancer.gov Contact a health care provider [...] information is n (more content not included)... [facility] 11-29-2024 Note Patient Education Oncology Bladder Cancer Bladder [...] Follow these instructions at home: ??? Take xscd-dew-jggmyoh and prescription medicines only as told by [...] important. Where to find more information ??? [place] [employer] (ACS): cancer.org ??? National Cancer Reeders (NCI): cancer.gov Contact a health care provider [...] information is n (more content not included)... [facility] 10-27-2024 History of Present illness Narrative Images from the original note were not included. Orthopedic Office note: NAME: Mary Diaz : 1950 EST PT RECHECK LT HIP PAIN 01/2024- S/P LT HIP BURSA IN 10/06/24; MINIMAL RELIEF XRAY LT HIP 07/04/24 [facility] (PUSHED INTO PACS) NO MRI LT HIP BURSA INJ 10/06/24 PAIN MANAGEMENT; MULTIPLE INJ TRIED CLINICAL UNIT COORDINATOR; SOME TEMP RELIEF CONTINUES TO HAVE LATERAL HIP PAIN- SOME RADIATING PAIN -DENIES GROIN PAIN - LIMITED ROM- PAIN RESTRICTS HIS MOTION- TRIED HEP; CAUSED SOME INCREASE PAIN- +TIGHTNESS- +WAKES HS- +NORCO RECENTLY FINISHED TX FOR RECENT BLADDER CA Physical Exam Hip Musculoskeletal Exam Gait Antalgic: left Inspection Leg length disparity: no discrepancy Left Erythema: none Ecchymosis: none Edema: none Deformity: none Palpation Left Increased warmth: none Tenderness: present Greater trochanteric region pain: mild Pubic rami pain: mild Lower lumbar region pain: mild Range of Motion Left Left hip range of motion is within functional limits. Active ROM: pain. Passive ROM: pain. Active extension: 15. Passive extension: 15. Active flexion: 80. Passive flexion: 80. Active internal rotation: 20. Passive internal rotation: 20. Active external rotation: 35. Passive external rotation: 35. Active adduction: 15. Passive adduction: 15. Active abduction: 20. Passive abduction: 20. Range of motion additional comments: Terminal motion on IR and ER limited by pain. Strength Left Left hip strength is normal. Extension: 5/5. Flexion: 4+/5. Flexion is affected by pain. Internal rotation: 5/5. External rotation: 5/5. Adduction: 5/5. Abduction: 4+/5. Abduction is affected by pain. Neurovascular Left Left hip neurovascular exam is normal. Pulses - PT: normal Posterior tibial: 2+ Special Tests Left Log roll test: positive General Constitutional: appears stated age Labored breathing: no Psychiatric: normal mood and affect Neurological: alert and oriented x3 Skin: intact Lymphadenopathy: none No orders of the defined types were placed in this encounter. Procedures Results ICD-10-CM 1. Acute hip pain, left M25.552 Assessment & Plan Left hip pain. He reports that his hip pain has become constant, extending beyond the greater trochanter to include the groin and buttock. The pain is present during sitting, standing, and physical activity. He notes discomfort is present all the time but worse with certain motions such as internal rotation while sleeping and he has difficulty with his sleep on the side. He admits that his hip pain is affecting his activities of daily living. Diagnostic plan: Given the steady progression of symptoms, an MRI has been recommended for further evaluation to rule out AVN or occult fracture. Clinical decision making: He is agreeable to this plan. Will hold diclofenac and trial celebrex with medication safety and common side effects/ concerns discussed. Questions answered in laymen terms at the bedside. The diagnosis, home exercise plan and any ongoing restrictions/ recommendations reviewed. If unable to be reached in office, I recommend evaluation at nearest Emergency Room if any symptoms worsened or new symptoms develop for requiring urgent evaluation. Visit was preformed using [employer] Co-pilot instructor speech recognition. documented in this encounter [facility] 10-24-2024 Hospital Discharge instructions Patient Education 10/24/2024 10:28:54 EU - Cystoscopy Discharge Instructions (CUSTOM) Cystoscopy [...] fever over 100 degrees. Follow Up Care 09/04/2024 13:08:22 With:Lionel WHITNEY Address: [address] [place], [place] [id number]- Business (1) When: Unknown Comments:Office will call to schedule follow up [facility] 10-24-2024 Note Patient Education Custom Cystoscopy ??? Voiding after the [...] you have a fever over 100 degrees. [facility] 10-09-2024 Note Patient Education Urology Cystoscopy Cystoscopy is a procedure that is used to help diagnose and sometimes treat conditions that affect the lower urinary tract. The lower urinary tract includes the bladder and the urethra. The urethra is the tube that drains urine from the bladder. Cystoscopy is done using a thin, tube-shaped instrument with a light and camera at the end (cystoscope). The cystoscope may be hard or flexible, depending on the goal of the procedure. The cystoscope is inserted through the urethra, into the bladder. Cystoscopy may be recommended if you have: ??? Urinary tract infections that keep coming back. ??? Blood in the urine (hematuria). ??? An inability to control when you urinate (urinary incontinence) or an overactive bladder. ??? Unusual cells found in a urine sample. ??? A blockage in the urethra, such as a urinary stone. ??? Painful urination. ??? An abnormality in the bladder found during an intravenous pyelogram (IVP) or CT scan. Cystoscopy may also be done to remove a sample of tissue to be examined under a microscope (biopsy). Tell a health care provider about: ??? Any allergies you have. ??? All medicines you are taking, including vitamins, herbs, eye drops, creams, and yqau-oye-zsqdbpz medicines. ??? Any problems you or family members have had with anesthetic medicines. ??? Any blood disorders you have. ??? Any surgeries you have had. ??? Any medical conditions you have. ??? Whether you are or may be . What are the risks? Generally, this is a safe procedure. However, problems may occur, including: ??? Infection. ??? Bleeding. ??? Allergic reactions to medicines. ??? Damage to other structures or organs. What happens before the procedure? Medicines Ask your health care provider about: ??? Changing or stopping your regular medicines. This is especially important if you are taking diabetes medicines or blood thinners. ??? Taking medicines such as aspirin and ibuprofen. These medicines can thin your blood. Do not take these medicines unless your health care provider tells you to take them. ??? Taking kyld-oyq-xbbvimk medicines, vitamins, herbs, and supplements. Tests You may have an exam or testing, such as: ??? X-rays of the bladder, urethra, or kidneys. ??? CT scan of the abdomen or pelvis. ??? Urine tests to check for signs of infection. General instructions ??? Follow instructions from your health care provider about eating or drinking restrictions. ??? Ask your health care provider what steps will be taken to help prevent infection. These steps may include: ? Washing skin with a germ-killing soap. ? Taking antibiotic medicine. ??? Plan to have a responsible adult take you home from the hospital or clinic. What happens during the procedure? You will be given one or more of the following: ? A medicine to help you relax (sedative). ? A medicine to numb the area (local anesthetic). ??? The area around the opening of your urethra will be cleaned. ??? The cystoscope will be passed through your urethra into your bladder. ??? Germ-free (sterile) fluid will flow through the cystoscope to fill your bladder. The fluid will stretch your bladder so that your health care provider can clearly examine your bladder rangel. ??? Your doctor will look at the urethra and bladder. Your doctor may take a biopsy or remove stones. ??? The cystoscope will be removed, and your bladder will be emptied. The procedure may vary among health care providers and hospitals. What can I expect after the procedure? After the procedure, it is common to have: ??? Some soreness or pain in your abdomen and urethra. ??? Urinary symptoms. These include: ? Mild pain or burning when you urinate. Pain should stop within a few minutes after you urinate. This may last for up to 1 week. ? A small amount of blood in your urine for several days. ? Feeling like you need to urinate but producing only a small amount of urine. Follow these instructions at home: Medicines ??? Take baww-bvf-fumxjme and prescription medicines only as told by your health care provider. ??? If you were prescribed an antibiotic medicine, take it as told by your health care provider. Do not stop taking the antibiotic even if you start to feel better. General instructions ??? Return to your normal activities as told by your health care provider. Ask your health care provider what activities are safe for you. ??? If you were given a sedative during the procedure, it can affect you for several hours. Do not drive or operate machinery until your health care provider says that it is safe. ??? Watch for any blood in your urine. If the amount of blood in your urine increases, call your health care provider. ??? Follow instructions from your health care provider about eating or drinking restrictions. ??? If a tissue sample was removed for testing (biopsy) during your (more content not included)... [facility] 10-06-2024 History of Present illness Narrative Associated Order(s): L Inj/Asp: L greater trochanteric bursa Post-Procedure Diagnose(s): Trochanteric bursitis of left hip Images from the original note were not included. Orthopedic Office note: NAME: Mary Diaz : 1950 NEW PT WITH LT HIP PAIN 01/2024- DENIES INJURY- PAIN MANAGEMENT TX; XRAYS/MULTIPLE INJ XRAY LT HIP 07/04/24 [facility] (CALLED TO HAVE IMAGES PUSHED) NO MRI PAIN MANAGEMENT; MULTIPLE INJ TRIED CLINICAL UNIT COORDINATOR; SOME TEMP RELIEF C/O PAIN LATERAL HIP-CONSTANT ACHINESS- LIMITED ROM- DIFFICULTY WITH STAIRS/ GETTING INTO TRUCK- SOME WEAKNESS- +WAKES HS- +NORCO PRN RECENTLY FINISHED TX FOR RECENT BLADDER CA [...] and oriented x3 Skin: intact Lymphadenopathy: none Physical Exam General Appearance: Normal Respiratory: No acute distress Musculoskeletal: The patient's hip has painless passive and active range of motion, but pain is reproducible with Devorah's test and direct palpation over the hip bursa. Skin: Warm and dry, no rash. Neurological: Normal Orders Placed This Encounter Procedures L Inj/Asp This order was created via procedure documentation L Inj/Asp: L greater trochanteric bursa on [...] Consent was given by the patient. Results - Imaging: - X-ray of left hip shows mild to moderate degenerative joint disease and narrowing of the femoral acetabular joint, but no other gross bony changes ICD-10-CM 1. Acute hip pain, left M25.552 2. Trochanteric bursitis of left hip M70.62 Assessment & Plan Left lateral hip pain. The differential diagnosis includes hip bursitis and potential gluteal tendinitis. He exhibits point tenderness over the hip bursa. Treatment plan: A repeat injection has been recommended, along with the initiation of topical Voltaren to be applied twice daily and home exercises focusing on piriformis stretches. Follow-up: The patient will follow up in 3 weeks for reevaluation, at which point a repeat x-ray, weightbearing versus physical therapy may be considered. Questions answered in laymen terms at the bedside. The diagnosis, home exercise plan and any ongoing restrictions/ recommendations reviewed. If unable to be reached in office, I recommend evaluation at nearest Emergency Room if any symptoms worsened or new symptoms develop for requiring urgent evaluation. Visit was preformed using [employer] speech recognition. documented in this encounter [facility] 09-13-2024 Note HNO ID: [id number] Author: JEFFREY BABB RN Service: ? Author Type: Registered Nurse Type: Progress Notes Filed: 09/13/2024 16:45 Note Text: 1312 -- Pt presents for BCG tx #6; denies any urinary symptoms or complaints at this time, provider visit prior to treatment today. 1320-- Urojet instilled, followed by 16 fr mills via sterile technique without issue. Clear, yellow urine return into collection bag. 10 mL NS inflated to catheter balloon. Pt aware allowing for complete bladder drainage prior to BCG instillation, clear yellow urine in mills tubing. Pt in position of comfort, call alexander in reach, visitor cartside, will continue monitoring. 1340 -- Mills tubing clamped and BCG instilled per orders. Pt aware to rotate self every 15 mins x2 hrs for complete dwell time. Visitor cartside to help monitor time. No needs, call alexander in reach, will continue monitoring. 1413-- Pt tolerating well without complaints/leaking/spasms; rotating self on cart without issue every 15 minutes. Denies needs, visitor remains cartside, call alexander in reach, continuing to monitor. 1516 -- Pt tolerating without any complaints. No leaking/spasms or pain. Pt aware of remaining time, continues rotating self every 15 mins without issue. Visitor cartside, call alexander in reach, continuing to monitor. Lab at bedside to draw labs placed today. 1610 -- BCG dwell time complete without issue. Mills tubing unclamped at this time for bladder drainage. 1620 -- Bladder drainage complete with 600 mL clear, yellow urine into collection bag. 10 mL NS removed from catheter balloon and mills d/c'ed without issue. Pt dressing independently and aware he is free for discharge when finished. Jeffrey Babb RN [facility] 09-13-2024 History of Present illness Narrative 1312 -- Pt presents for BCG tx #6; denies any urinary symptoms or complaints at this time, provider visit prior to treatment today. 1320-- Urojet instilled, followed by 16 fr mills via sterile technique without issue. Clear, yellow urine return into collection bag. 10 mL NS inflated to catheter balloon. Pt aware allowing for complete bladder drainage prior to BCG instillation, clear yellow urine in mills tubing. Pt in position of comfort, call alexander in reach, visitor cartside, will continue monitoring. 1340 -- Mills tubing clamped and BCG instilled per orders. Pt aware to rotate self every 15 mins x2 hrs for complete dwell time. Visitor cartside to help monitor time. No needs, call alexander in reach, will continue monitoring. 1413-- Pt tolerating well without complaints/leaking/spasms; rotating self on cart without issue every 15 minutes. Denies needs, visitor remains cartside, call alexander in reach, continuing to monitor. 1516 -- Pt tolerating without any complaints. No leaking/spasms or pain. Pt aware of remaining time, continues rotating self every 15 mins without issue. Visitor cartside, call alexander in reach, continuing to monitor. Lab at bedside to draw labs placed today. 1610 -- BCG dwell time complete without issue. Mills tubing unclamped at this time for bladder drainage. 1620 -- Bladder drainage complete with 600 mL clear, yellow urine into collection bag. 10 mL NS removed from catheter balloon and mills d/c'ed without issue. Pt dressing independently and aware he is free for discharge when finished. Jeffrey Babb, RN documented in this encounter [facility] 09-13-2024 Note HNO ID: [id number] Author: SUZANNA WATERS MA Service: ? Author Type: Lumber Stacker Operator Type: Progress Notes Filed: 09/13/2024 13:46 Note Text: UA performed as ordered. Suzanna Waters MA [facility] 09-13-2024 History of Present illness Narrative UA performed as ordered. Suzanna Waters MA documented in this encounter [facility] 09-13-2024 Instructions Norberto Andrade MD - 09/13/2024 1:09 PM EDT Last BCG treatment today Labs today F/u with urology F/u in 3 months documented in this encounter [facility] 09-13-2024 History of Present illness Narrative Images from the original note were not included. PATIENT NAME: Mary Diaz CLINIC NO.: [id number] ATTENDING PHYSICIAN: Norberto Andrade MD DATE OF SERVICE: 09/13/[address] Lionel Whitney [address] [facility] [address] thank you for referring Mary Diaz for an opinion regarding non muscle invasive bladder cancer. Some of the elements of this note have been copied from my previous progress note dated 08/16/24. All the information has been reviewed carefully. 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 Urology recommended induction BCG x 6 treatments. H/o prostate cancer s/p radical prostatectomy in 08/2014. No smoking Occasional alcohol Doing well No major complaints. 08/02/24: - Doing well - No major complaints - C/o left hip pain - Doing intraarticular steroid injection next week on Wednesday. 08/16/24: - Doing well - No major complaints - C/o easy bruising 09/13/24: - Week 6 BCG today - Doing well - No major complaints. - Scheduled for cystoscopy in October 2024. - CT scans unremarkable. Current Outpatient Medications Medication Sig HYDROcodone-acetaminophen (NORCO) 5-325 mg per tablet Take 1 tablet by mouth at bedtime as needed. hawsqedpcsd-xoaxzffvw-utojyhmu (TRELEGY ELLIPTA) 100-62.5-25 mcg inhalation powder = 1 puff(s), Inhalation, Daily, Refills(s) 0 iv contrast (will be provided with radiology test) CT Chest ABD/PEL-Inject, intravenously, [...] in the CT contrast administration guidelines link. enteric contrast (will be provided with radiology test) For CT CHESTABD/PEL W IVCON Routine order Administer, As Directed One Time Only, via Oral, Rectal, both Oral and Rectal, Enteric Tube, Stoma or Indwelling Catheter, Enteric Contrast as designated per enteric contrast guidelines doxazosin (CARDURA) 1 mg tablet Take 1 [...] Take 100 mg by mouth as needed. isflxdkeyqt-fqlkwxmgs-edqqcrtz (TRELEGY ELLIPTA) 100-62.5-25 mcg inhalation powder Inhale [...] : Deferred LABS: Glucose (mg/dL) Date Value 08/16/2024 84 Potassium (mmol/L) Date Value 08/16/2024 5.2 Sodium (mmol/L) Date Value 08/16/2024 139 Chloride (mmol/L) Date Value 08/16/2024 102 CO2 (mmol/L) Date Value 08/16/2024 24 Creatinine (mg/dL) Date Value 08/16/2024 1.45 BUN (mg/dL) Date Value 08/16/2024 24 Anion Gap (mmol/L) Date Value 08/16/2024 13 Calcium, Total (mg/dL) Date Value 08/16/2024 9.7 Protein, Total (g/dL) Date Value 08/16/2024 6.8 Albumin (g/dL) Date Value 08/16/2024 4.5 Bilirubin, Total (mg/dL) Date Value 08/16/2024 0.3 Alkaline Phosphatase (U/L) Date Value 08/16/2024 76 AST (U/L) Date Value 08/16/2024 20 ALT (U/L) Date Value 08/16/2024 21 WBC Date Value Ref Range Status 08/16/2024 10.92 3.70 - 11.00 k/uL Final RBC Date Value Ref Range Status 08/16/2024 4.22 4.20 - 6.00 m/uL Final Hemoglobin Date Value Ref Range Status 08/16/2024 13.0 13.0 - 17.0 g/dL Final Hematocrit Date Value Ref Range Status 08/16/2024 39.7 39.0 - 51.0 % Final MCV Date Value Ref Range Status 08/16/2024 94.1 80.0 - 100.0 fL Final MCH Date Value Ref Range Status 08/16/2024 30.8 26.0 - 34.0 pg Final MCHC Date Value Ref Range Status 08/16/2024 32.7 30.5 - 36.0 g/dL Final RDW-CV Date Value Ref Range Status 08/16/2024 12.8 11.5 - 15.0 % Final Platelet Count Date Value Ref Range Status 08/16/2024 311 150 - 400 k/uL Final MPV Date Value Ref Range Status 08/16/2024 9.7 9.0 - 12.7 fL Final Abs Neut Date Value Ref Range Status 08/16/2024 8.15 (H) 1.45 - 7.50 k/uL Final Lymphocytes % Date Value Ref Range Status 08/16/2024 14.2 % Final Abs Lymph Date Value Ref Range Status 08/16/2024 1.55 1.00 - 4.00 k/uL Final Monocytes % Date Value Ref Range Status 08/16/2024 8.8 % Final Abs [place] Date Value Ref Range Status 08/16/2024 0.96 (H) <0.87 k/uL Final Abs Eosin Date Value Ref Range Status 08/16/2024 0.10 <0.46 k/uL Final Basophils % Date Value Ref Range Status 08/16/2024 0.4 % Final Abs Baso Date Value Ref Range Status 08/16/2024 0.04 <0.11 k/uL Final PATH: IMAGING: ASSESSMENT AND 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 - Urology recommended induction BCG x 6 treatments. PLAN: - Doing well - Proceed with week 6 intravesical BCG treatment today. - Tolerating well so far. - CT scans on 09/01/24 are unremarkable. - Last PSA was 0.03 on 08/16/24. - Check CBC CMP. - Scheduled for cystoscopy in October 2024. - We will do maintenance BCG after 3 months depending on urology recommendations. - All his questions answered in detail - F/u in [address] Lionel Whitney [address] [facility] [address] thank you for allowing me to participate in [facility], if there are any questions or concerns please do not hesitate to contact me at the number below. I spent a total of 30 minutes on the date of the service which included preparing to see the patient, argk-nh-flys patient care, completing clinical documentation, obtaining and/or reviewing separately obtained history, performing a medically appropriate examination, counseling and educating the patient/family/caregiver, ordering medications, tests, or procedures, communicating with other HCPs (not separately reported), independently interpreting results (not separately reported), communicating results to the patient/family/caregiver, and care coordination (not separately reported). Norberto Andrade MD. Hematology/Medical Oncology [facility] [phone] CC: documented in this encounter [facility] 09-13-2024 Note HNO ID: [id number] Author: NORBERTO ANDRADE MD Service: ? Author Type: Physician Type: Progress Notes Filed: 09/13/2024 13:18 Note Text: PATIENT NAME: Mary Sue [facility] [place] NO.: [id number] ATTENDING PHYSICIAN: Norberto Andrade MD DATE OF SERVICE: 09/13/[address] Lionel Whitney [address] [place] [address] thank you for referring Mary Diaz for an opinion regarding non muscle invasive bladder cancer. Some of the elements of this note have been copied from my previous progress note dated 08/16/24. All the information has been reviewed carefully. 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 Urology recommended induction BCG x 6 treatments. H/o prostate cancer s/p radical prostatectomy in 08/2014. No smoking Occasional alcohol Doing well No major complaints. 08/02/24: - Doing well - No major complaints - C/o left hip pain - Doing intraarticular steroid injection next week on Wednesday. 08/16/24: - Doing well - No major complaints - C/o easy bruising 09/13/24: - Week 6 BCG today - Doing well - No major complaints. - Scheduled for cystoscopy in October 2024. - CT scans unremarkable. Current Outpatient Medications Medication Sig HYDROcodone-acetaminophen (NORCO) 5-325 mg per tablet Take 1 tablet by mouth at bedtime as needed. vrlnbtmfufm-xlsuboskm-ryubtoje (TRELEGY ELLIPTA) 100-62.5-25 mcg inhalation powder = 1 puff(s), Inhalation, Daily, Refills(s) 0 iv contrast (will be provided with radiology test) CT Chest ABD/PEL-Inject, intravenously, [...] in the CT contrast administration guidelines link. enteric contrast (will be provided with radiology test) For CT CHESTABD/PEL W IVCON Routine order Administer, As Directed One Time Only, via Oral, Rectal, both Oral and Rectal, Enteric Tube, Stoma or Indwelling Catheter, Enteric Contrast as designated per enteric contrast guidelines doxazosin (CARDURA) 1 mg tablet Take 1 [...] Take 100 mg by mouth as needed. vjbbyxbfycv-obujdhslj-ldjcchhn (TRELEGY ELLIPTA) 100-62.5-25 mcg inhalation powder Inhale [...] HEENT: Negative for headaches, No changes in hear (more content not included)... [facility] 09-01-2024 History of Present illness Narrative Radiology Service Progress Note DATE OF SERVICE: September 01, 2024 TIME: 1:15 PM PATIENT WEIGHT: 190LBS PATIENT IDENTITY VERIFICATION COMPLETED USING TWO (2) STANDARD IDENTIFIERS: Name and Date of confirmed by patient verbally. FALL SCREENING: Has the patient had 2 falls in the last year or 1 fall with injury or currently using an Ambulatory Assistive Device (Walker, Cane, Wheelchair, Crutches, etc.)? No PATIENT GENDER DATA: Assigned male at ALLERGIES: Reviewed and unchanged CONTRAST ALLERGY: No EXAM: CT -CONTRAST INDUCED NEPHROPATHY RISK FACTORS: Patient age > 60 years CREATININE: Creatinine Date Value Ref Range Status 08/16/2024 1.45 (H) 0.73 - 1.22 mg/dL Final 07/26/2024 1.31 (H) 0.73 - 1.22 mg/dL Final Estimated Glomerular Filtration Rate Date Value Ref Range Status 08/16/2024 51 (L) >=60 mL/min/1.73m Final Comment: Estimated Glomerular Filtration Rate (eGFR) is calculated using the 2020 CKD-EPI creatinine equation. This equation utilizes serum creatinine, sex, and age as parameters. The creatinine assay has traceable calibration to isotope dilution-mass spectrometry. Refer to KDIGO guidelines for clinical interpretation. In patients with unstable renal function, e.g. those with acute kidney injury, the eGFR may not accurately reflect actual GFR. P.O.C.T. RESULTS: POC done: Yes, See Lab Tab September 01, 2024 TREATMENT: N/A IV SITE: Ambulatory: A peripheral IV was started in the Right antecubital site with a Angio cath: 20 gauge. IV SITE APPEARANCE: Clean,Dry and Intact SIGNATURE: Porsha Smith RN PATIENT NAME: Mary Diaz DATE: September 01, 2024 TIME: 1:15 PM Radiology Service Progress Note PATIENT NAME: Mary Diaz DATE OF SERVICE: September 01, 2024 TIME: 3:08 PM PATIENT IDENTITY VERIFICATION COMPLETED USING TWO (2) IDENTIFIERS: Name and Date of confirmed by patient verbally. FALL SCREENING: Has the patient had 2 falls in the last year or 1 fall with injury or currently using an Ambulatory Assistive Device (Walker, Cane, Wheelchair, Crutches, etc.)? No PATIENT GENDER DATA: Assigned male at PATIENT RELEVANT IMPLANT DATA REVIEWED: Not Applicable PATIENT PRESENTS WITH AN IMPLANTABLE OR ATTACHED PIN MACHINE TENDER: No RADIOLOGY DEPARTMENT: CT; Exam(s) Completed: Chest Abdomen Pelvis PERIPHERAL IV DATA: Site assessment: Clean,Dry and Intact, Site disposition Discontinued SIGNED BY: RT Roby(Aubrey) September 01, 2024 3:08 PM documented in this encounter [facility] 09-01-2024 Note HNO ID: [id number] Author: ANGELES FUENTES RT(R) Service: ? Author Type: Technologist Type: Progress Notes Filed: 09/01/2024 15:08 Note Text: Radiology Service Progress Note PATIENT NAME: Mary Diaz DATE OF SERVICE: September 01, 2024 TIME: 3:08 PM PATIENT IDENTITY VERIFICATION COMPLETED USING TWO (2) IDENTIFIERS: Name and Date of confirmed by patient verbally. FALL SCREENING: Has the patient had 2 falls in the last year or 1 fall with injury or currently using an Ambulatory Assistive Device (Walker, Cane, Wheelchair, Crutches, etc.)? No PATIENT GENDER DATA: Assigned male at PATIENT RELEVANT IMPLANT DATA REVIEWED: Not Applicable PATIENT PRESENTS WITH AN IMPLANTABLE OR ATTACHED PIN MACHINE TENDER: No RADIOLOGY DEPARTMENT: CT; Exam(s) Completed: Chest Abdomen Pelvis PERIPHERAL IV DATA: Site assessment: Clean,Dry and Intact, Site disposition Discontinued SIGNED BY: RT Roby(Aubrey) September 01, 2024 3:08 PM [facility] 09-01-2024 Note HNO ID: [id number] Author: PORSHA SMITH RN Service: ? Author Type: Registered Nurse Type: Progress Notes Filed: 09/01/2024 13:15 Note Text: Radiology Service Progress Note DATE OF SERVICE: September 01, 2024 TIME: 1:15 PM PATIENT WEIGHT: 190LBS PATIENT IDENTITY VERIFICATION COMPLETED USING TWO (2) STANDARD IDENTIFIERS: Name and Date of confirmed by patient verbally. FALL SCREENING: Has the patient had 2 falls in the last year or 1 fall with injury or currently using an Ambulatory Assistive Device (Walker, Cane, Wheelchair, Crutches, etc.)? No PATIENT GENDER DATA: Assigned male at ALLERGIES: Reviewed and unchanged CONTRAST ALLERGY: No EXAM: CT -CONTRAST INDUCED NEPHROPATHY RISK FACTORS: Patient age > 60 years CREATININE: Creatinine Date Value Ref Range Status 08/16/2024 1.45 (H) 0.73 - 1.22 mg/dL Final 07/26/2024 1.31 (H) 0.73 - 1.22 mg/dL Final Estimated Glomerular Filtration Rate Date Value Ref Range Status 08/16/2024 51 (L) >=60 mL/min/1.73m? Final Comment: Estimated Glomerular Filtration Rate (eGFR) is calculated using the 2020 CKD-EPI creatinine equation. This equation utilizes serum creatinine, sex, and age as parameters. The creatinine assay has traceable calibration to isotope dilution-mass spectrometry. Refer to KDIGO guidelines for clinical interpretation. In patients with unstable renal function, e.g. those with acute kidney injury, the eGFR may not accurately reflect actual GFR. P.O.C.T. RESULTS: POC done: Yes, See Lab Tab September 01, 2024 TREATMENT: N/A IV SITE: Ambulatory: A peripheral IV was started in the Right antecubital site with a Angio cath: 20 gauge. IV SITE APPEARANCE: Clean,Dry and Intact SIGNATURE: Porsha Smith RN PATIENT NAME: Mary Diaz DATE: September 01, 2024 TIME: 1:15 PM [facility] 08-30-2024 Note HNO ID: [id number] Author: SUZANNA WATERS MA Service: ? Author Type: Lumber Stacker Operator Type: Progress Notes Filed: 08/30/2024 13:24 Note Text: UA performed as ordered. Suzanna Waters MA [facility] 08-30-2024 History of Present illness Narrative UA performed as ordered. Suzanna Waters MA documented in this encounter [facility] 08-30-2024 Note HNO ID: [id number] Author: ALICE PEARCE RN Service: ? Author Type: Registered Nurse Type: Progress Notes Filed: 08/30/2024 16:11 Note Text: 1301 -- Pt presents for BCG tx #5; denies any urinary symptoms or complaints. UA obtained per orders and sent to be ran to r/o UTI. Pt prepping for mills. 1315 -- UA negative (trace leuks) and proceeding with tx. Urojet instilled, followed by 16 fr mills via sterile technique without issue. Clear, yellow urine return into collection bag. 10 mL NS inflated to catheter balloon. Pt aware allowing for complete bladder drainage prior to BCG instillation. Pt in position of comfort, call alexander in reach, visitor cartside, will continue monitoring. 1345 -- Bladder drainage complete with ~75 mL clear, yellow urine into collection bag. Mills tubing clamped and BCG instilled per orders. Pt aware to rotate self every 15 mins x2 hrs for complete dwell time. Visitor cartside to help monitor time. No needs, call alexander in reach, will continue monitoring. 1424 -- Pt tolerating well without complaints/leaking/spasms; rotating self on cart without issue every 15 minutes. Denies needs, visitor remains cartside, call alexander in reach, continuing to monitor. 1520 -- Pt tolerating without any complaints. No leaking/spasms or pain. Pt aware of remaining time, continues rotating self every 15 mins without issue. Visitor cartside, call alexander in reach, continuing to monitor. 1545 -- BCG dwell time complete without issue. Mills tubing unclamped at this time for bladder drainage. 1604 -- Bladder drainage complete with ~800 mL clear, yellow urine into collection bag. 10 mL NS removed from catheter balloon and mills d/c'ed without issue. Pt dressing independently and aware he is free for discharge when finished. Alice Pearce RN [facility] 08-30-2024 History of Present illness Narrative 1301 -- Pt presents for BCG tx #5; denies any urinary symptoms or complaints. UA obtained per orders and sent to be ran to r/o UTI. Pt prepping for mills. 1315 -- UA negative (trace leuks) and proceeding with tx. Urojet instilled, followed by 16 fr mills via sterile technique without issue. Clear, yellow urine return into collection bag. 10 mL NS inflated to catheter balloon. Pt aware allowing for complete bladder drainage prior to BCG instillation. Pt in position of comfort, call alexander in reach, visitor cartside, will continue monitoring. 1345 -- Bladder drainage complete with ~75 mL clear, yellow urine into collection bag. Mills tubing clamped and BCG instilled per orders. Pt aware to rotate self every 15 mins x2 hrs for complete dwell time. Visitor cartside to help monitor time. No needs, call alexander in reach, will continue monitoring. 1424 -- Pt tolerating well without complaints/leaking/spasms; rotating self on cart without issue every 15 minutes. Denies needs, visitor remains cartside, call alexander in reach, continuing to monitor. 1520 -- Pt tolerating without any complaints. No leaking/spasms or pain. Pt aware of remaining time, continues rotating self every 15 mins without issue. Visitor cartside, call alexander in reach, continuing to monitor. 1545 -- BCG dwell time complete without issue. Mills tubing unclamped at this time for bladder drainage. 1604 -- Bladder drainage complete with ~800 mL clear, yellow urine into collection bag. 10 mL NS removed from catheter balloon and mills d/c'ed without issue. Pt dressing independently and aware he is free for discharge when finished. Alice Pearce RN documented in this encounter [facility] 08-23-2024 Note HNO ID: [id number] Author: DAISY YOON LSW Service: ? Author Type: Government Auditor Type: Progress Notes Filed: 08/23/2024 16:37 Note Text: SW attempted to meet with Patient today. He was with a nurse at the time of the attempt. SW will try again to meet with Patient to introduce SW services and complete a psychosocial assessment. RADHA Leary Goals of Care Advance Directives are not on file. [facility] 08-23-2024 History of Present illness Narrative SW attempted to meet with Patient today. He was with a nurse at the time of the attempt. SW will try again to meet with Patient to introduce SW services and complete a psychosocial assessment. RADHA Leary Goals of Care Advance Directives are not on file. documented in this encounter [facility] 08-23-2024 Note HNO ID: [id number] Author: NYDIA LARA RN Service: ? Author Type: Registered Nurse Type: Progress Notes Filed: 08/23/2024 16:28 Note Text: 1315- Patient arrived to infusion room in stable condition. Patient's VSS, 139/81 56, 16, 97.5 F 99% RA. Collected urine for UA and sent to [facility] station for POC testing. Awaiting results. Patient reported no issues with bladder. 1343- patient's mills inserted without any complication. Dark yellow urine to gravity drain. Lidocaine used as ordered. Mills inserted per policy. 1410- scant amout of urine in drainage bag. Patient stated not having any fluids for approximately 3 hours prior to treatment. Inserted bcg into bladder and reminded patient and to turn every 15 minutes. Patient verbalized understanding. Call alexander within reach. Patient denies needs at this time. 1510- patient tolerating well. Denies needs at this time. 1612- unclamped patient to gravity drain. 1620- d/c'd mills. Approximately 400 cc's dark yellow urine in gravity bag. Patient tolerated well. 1624- patient d/c'd home. Nydia Lara RN [facility] 08-23-2024 History of Present illness Narrative 1315- Patient arrived to infusion room in stable condition. Patient's VSS, 139/81 56, 16, 97.5 F 99% RA. Collected urine for UA and sent to MA station for POC testing. Awaiting results. Patient reported no issues with bladder. 1343- patient's mills inserted without any complication. Dark yellow urine to gravity drain. Lidocaine used as ordered. Mills inserted per policy. 1410- scant amout of urine in drainage bag. Patient stated not having any fluids for approximately 3 hours prior to treatment. Inserted bcg into bladder and reminded patient and to turn every 15 minutes. Patient verbalized understanding. Call alexander within reach. Patient denies needs at this time. 1510- patient tolerating well. Denies needs at this time. 1612- unclamped patient to gravity drain. 1620- d/c'd mills. Approximately 400 cc's dark yellow urine in gravity bag. Patient tolerated well. 1624- patient d/c'd home. Nydia Lara RN documented in this encounter [facility] 08-23-2024 Note HNO ID: [id number] Author: SANTOSH DEL RIO MA Service: ? Author Type: Lumber Stacker Operator Type: Progress Notes Filed: 08/23/2024 13:29 Note Text: UA performed as ordered. Santosh Del Rio MA [facility] 08-23-2024 History of Present illness Narrative UA performed as ordered. Santosh Del Rio MA documented in this encounter [facility] 08-16-2024 Note HNO ID: [id number] Author: LAUREN JOHNSON RN Service: ? Author Type: Registered Nurse Type: Progress Notes Filed: 08/16/2024 16:31 Note Text: 1330 urine sent for POC 1343 urine [...] difficulty and approx 300cc urine in bag. [facility] 08-16-2024 History of Present illness Narrative 1330 [...] urine in bag. documented in this encounter [facility] 08-16-2024 Note HNO ID: [id number] Author: CYDNEY HONEYCUTT MA Service: ? Author Type: Lumber Stacker Operator Type: Progress Notes Filed: 08/16/2024 13:53 Note Text: Back office UA test performed. Results entered in [employer] and doctor notified. Cydney Honeycutt MA [facility] 08-16-2024 History of Present illness Narrative Back office UA test performed. Results entered in [employer] and doctor notified. Cydney Honeycutt MA documented in this encounter [facility] 08-16-2024 Instructions Norberto Andrade MD - 08/16/2024 1:25 PM EST Treatment today and every week Ordered CT scans F/u in 4 weeks documented in this encounter [facility] 08-16-2024 History of Present illness Narrative Images from the original note were not included. PATIENT NAME: Mary Diaz [facility] NO.: [id number] ATTENDING PHYSICIAN: Norberto Andrade MD DATE OF SERVICE: 08/16/[address] 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 Urology recommended induction [...] Take 100 mg by mouth as needed. 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 - Urology recommended induction BCG x 6 treatments. PLAN: - Doing well - Proceed with week 3 intravesical BCG treatment today. - Tolerating well so far. - Ordered CT scans - Check CBC CMP PSA. - All his questions answered in detail - F/u in [address] Lionel Whitney [address] [facility] [address] thank you for allowing me to participate in Mary Diaz care, if there are any questions or concerns please do not hesitate to contact me at the number below. I spent a total of 30 minutes on the date of the service which included preparing to see the patient, zdwg-uy-ffrg patient care, completing clinical documentation, obtaining and/or reviewing separately obtained history, performing a medically appropriate examination, counseling and educating the patient/family/caregiver, ordering medications, tests, or procedures, communicating with other HCPs (not separately reported), independently interpreting results (not separately reported), communicating results to the patient/family/caregiver, and care coordination (not separately reported). Norberto Andrade MD. Hematology/Medical Oncology [facility] [place] [phone] CC: documented in this encounter [facility] 08-16-2024 Note HNO ID: [id number] Author: NORBERTO ANDRADE MD Service: ? Author Type: Physician Type: Progress Notes Filed: 08/16/2024 13:29 Note Text: PATIENT NAME: Mary Diaz [facility] NO.: [id number] ATTENDING PHYSICIAN: Norberto Andrade MD DATE OF SERVICE: 08/16/[address] 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 Urology recommended induction [...] Take 100 mg by mouth as needed. cfyxvhvbatp-tmnutoyfr-mzzzuvdi (TRELEGY ELLIPTA) 100-62.5-25 mcg inhalation powder Inhale [...] palpable breast masses. No nipple change or (more content not included)... [facility] 08-09-2024 Note HNO ID: [id number] Author: ALICE PEARCE RN Service: ? Author [...] for discharge when dressed. Alice Pearce RN [facility] 08-09-2024 History of Present illness Narrative 1620 -- BCG dwell time complete; mills tubing unclamped and allowing bladder to drain at this time. 1633 -- Bladder drainage complete, ~400 mL clear, yellow urine in collection bag. 10 mL NS removed from catheter balloon and mills d/c'ed without issue. Pt dressing independently, at side, ready for discharge when dressed. Alice Pearce, RN 1400: UA collected and negative results, [...] Pt tolerating well. documented in this encounter [facility] 08-09-2024 Note HNO ID: [id number] Author: MONSE VIDAL, NATHALIE Service: ? Author Type: Registered Nurse Type: [...] with no complaints. 1544: Pt tolerating well. [facility] 08-09-2024 Note HNO ID: [id number] Author: CYDNEY HONEYCUTT MA Service: ? Author Type: Lumber Stacker Operator Type: Progress Notes Filed: 08/09/2024 13:50 Note Text: Back office UA test performed. Results entered in [employer] and doctor notified. Cydney Honeycutt MA [facility] 08-09-2024 History of Present illness Narrative Back office UA test performed. Results entered in [employer] and doctor notified. Cydney Honeycutt MA documented in this encounter [facility] 08-07-2024 Telephone encounter Note CYCLE 1/DAY 1 [...] after hours number protocol. Ingrid Ugalde RN [facility] Work Phone: 08-07-2024 Miscellaneous Notes CYCLE 1/DAY [...] Ingrid Ugalde RN documented in this encounter [facility] 08-02-2024 Note HNO ID: [id number] Author: KERON KELLY RN Service: ? Author [...] for follow up appointments. Keron Kelly RN [facility] 08-02-2024 History of Present illness Narrative 0920: [...] Keron Kelly RN documented in this encounter [facility] 08-02-2024 Instructions Norberto Andrade MD - 08/02/2024 9:05 AM EST BCG treatment today and every week F/u in 2 weeks documented in this encounter [facility] 08-02-2024 Note HNO ID: [id number] Author: SANTOSH DEL RIO MA Service: ? Author Type: Lumber Stacker Operator Type: Progress Notes Filed: 08/02/2024 08:51 Note Text: UA performed as ordered. Santosh Del Rio MA [facility] 08-02-2024 History of Present illness Narrative UA performed as ordered. Santosh Del Rio MA documented in this encounter [facility] 08-02-2024 History of Present illness Narrative Images from the original note were not included. PATIENT NAME: Mary Diaz CLINIC NO.: [id number] ATTENDING PHYSICIAN: Norberto Andrade MD DATE OF SERVICE: 08/02/[address] 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 Urology recommended induction [...] Take 100 mg by mouth as needed. 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 - Urology recommended induction BCG x 6 treatments. PLAN: - Doing well - Proceed with week 1 intravesical BCG treatment today. - Recent blood work is essentially unremarkable. - All his questions answered in detail - F/u in [address] Lionel Whitney [address] [place] [address] thank you for allowing me to participate in Mary Diaz care, if there are any questions or concerns please do not hesitate to contact me at the number below. I spent a total of 30 minutes on the date of the service which included preparing to see the patient, jvqy-hn-vgox patient care, completing clinical documentation, obtaining and/or reviewing separately obtained history, performing a medically appropriate examination, counseling and educating the patient/family/caregiver, ordering medications, tests, or procedures, communicating with other HCPs (not separately reported), independently interpreting results (not separately reported), communicating results to the patient/family/caregiver, and care coordination (not separately reported). Norberto Andrade MD. Hematology/Medical Oncology [facility] [place] [phone] CC: documented in this encounter [facility] 08-02-2024 Note HNO ID: [id number] Author: NORBERTO ANDRADE MD Service: ? Author Type: Physician Type: Progress Notes Filed: 08/02/2024 09:15 Note Text: PATIENT NAME: Mary Diaz CLINIC NO.: [id number] ATTENDING PHYSICIAN: Norberto Andrade MD DATE OF SERVICE: 08/02/[address] 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 Urology recommended induction [...] Take 100 mg by mouth as needed. xrixrrmxxyl-qukljecxk-notbarjp (TRELEGY ELLIPTA) 100-62.5-25 mcg inhalation powder Inhale [...] pain to percussion (more content not included)... [facility] 08-01-2024 Telephone encounter Note Spoke with patient over the phone today. Patient is active with [employer], LOC 80%, $0 deductible has $0 remaining, $3500 OOP has $3400 remaining. Estimate shows patient financial responsibility is $134.16 for each treatment in 2024 until oop max is reached. Patient stated understanding. Reference #[id number]. There is currently no Bladder funding available, but will add him to my wait list. [employer] completed over the phone. He was very appreciative of my phone call. [facility] 08-01-2024 Miscellaneous Notes Spoke with patient over the phone today. Patient is active with [employer], LOC 80%, $0 deductible has $0 remaining, $3500 OOP has $3400 remaining. Estimate shows patient financial responsibility is $134.16 for each treatment in 2024 until oop max is reached. Patient stated understanding. Reference #[id number]. There is currently no Bladder funding available, but will add him to my wait list. [employer] completed over the phone. He was very appreciative of my phone call. documented in this encounter [facility] 07-26-2024 Note HNO ID: [id number] Author: INGRID UGALDE RN Service: ? Author [...] minutes REFERRAL (RECOMMENDATION): N/A Ingrid Ugalde RN [employer] Pre Chemo Patient identified by name and date of . YES Confirmed date and time for chemotherapy ? YES Other appointments (labs, imaging) discussed? YES Discussed where to park (morning caregiver), charge for parking NO Discussed where to [...] mitomycin in the past Ingrid Ugalde RN [facility] 07-26-2024 History of Present illness Narrative ONCOLOGY [...] - Cancer Wellness Program Pamphlet. YES - [facility] Jorge A Information. YES - Patient services information. YES - My Journey binder given to pt. Time Spent: 30 minutes REFERRAL (RECOMMENDATION): N/A Ingrid Ugalde, RN [employer] Pre Chemo Patient identified by name and date of . YES Confirmed date and time for chemotherapy ? YES Other appointments (labs, imaging) discussed? YES Discussed where to park (morning caregiver), charge for parking NO Discussed where to [...] Ingrid Ugalde RN documented in this encounter [facility] 07-19-2024 Instructions Norberto Andrade MD - 07/19/2024 11:04 AM EST Chemo teach for intravesical BCG Start treatment in 2 weeks F/u in 2 weeks documented in this encounter [facility] 07-19-2024 History of Present illness Narrative Images from the original note were not included. PATIENT NAME: Mary Diaz [facility] NO.: [id number] ATTENDING PHYSICIAN: Norberto Andrade MD DATE OF SERVICE: July 19, [address] 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 - Urology recommended induction BCG x 6 treatments. - We will start him on weekly BCG treatments after 2 weeks from today - Check CBC CMP - All his questions answered in detail - F/u in [address] Lionel Whitney [address] [facility] [address] thank you for allowing me to participate in Mary Diaz care, if there are any questions or concerns please do not hesitate to contact me at the number below. I spent a total of 60 minutes on the date of the service which included preparing to see the patient, wgaf-ip-kibf patient care, completing clinical documentation, obtaining and/or reviewing separately obtained history, performing a medically appropriate examination, counseling and educating the patient/family/caregiver, ordering medications, tests, or procedures, communicating with other HCPs (not separately reported), independently interpreting results (not separately reported), communicating results to the patient/family/caregiver, and care coordination (not separately reported). Norberto Andrade MD. Hematology/Medical Oncology [facility] [place] [phone] CC: documented in this encounter [facility] 07-19-2024 Note HNO ID: [id number] Author: NORBERTO ANDRADE MD Service: ? Author Type: Physician Type: Progress Notes Filed: 07/19/2024 11:42 Note Text: PATIENT NAME: Mary Diaz [facility] NO.: [id number] ATTENDING PHYSICIAN: Norberto Andrade MD DATE OF SERVICE: July 19, [address] 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 - Urology recommended induction BCG x 6 treatments. - We will start him on weekly BCG treatments after 2 weeks from today - Check CBC CMP - All his questions answered in detail - F/u in [address] Lionel Whitney [address] [place] [address] thank you for allowing me to participate in Mary Diaz [facility], if there are any questions or concerns please do not hesitate to contact me at the number below. I spent a total of 60 minutes on the date of the service which included preparing to see the patient, sgau-xx-cpdg patient care, completing clinical documentation, obtaining and/or reviewing separately obtained history, performing a medically appropriate examination, counseling and educating the patient/family/caregiver, ordering medi (more content not included)... [facility] 07-17-2024 History of Present illness Narrative Seen [...] (VOLTAREN) 75 mg, 2 times daily HYDROcodone-acetaminophen ([place]) 5-325 mg tablet 1 tablet, Daily PRN [...] Diagnosis Date Noted Bilateral carotid artery disease ([facility]) 07/17/2024 Chest pressure 07/17/2024 BMI 26.0-26.9,adult 05/08/2024 [...] name below, I, Lillie Azul LPN , Jakeibneftaly attest that this documentation has been prepared under the direction and in the presence of Cady Espinosa MD. documented in this encounter [facility] Work Phone: 07-17-2024 Instructions Lillie [...] instructions on exercise. documented in this encounter [facility] Work Phone: 07-12-2024 Hospital Discharge [...] cells. Follow these instructions at home: Take rfmk-ath-dvkmqey and prescription medicines only as told by [...] is important. Where to find more information [place] [employer] (ACS): cancer.org National Cancer Reeders (NCI): cancer.gov Contact a health care provider [...] provider. Document Revised: 05/18/2022 Document Reviewed: 05/18/2022 [employer] Patient Education 2023 [employer]. Follow Up Care 05/09/2024 13:40:51 With:DEVONTE NOBLE, Lionel Burgos, URL Address: [facility] [address] , [place] [address]- When: Unknown [facility] 07-12-2024 Note Patient Education Oncology Bladder [...] Follow these instructions at home: ??? Take nylr-ytq-ujuvzfe and prescription medicines only as told by [...] important. Where to find more information ??? [place] [employer] (ACS): cancer.org ??? National Cancer Reeders (NCI): cancer.gov Contact a health care provider [...] information is n (more content not included)... [facility] 05-09-2024 Evaluation + Plan note Extrac malik from: Title:Urology Progress Note Author:Suzan WHITNEY MD Date:05/09/24 Impression and Plan Impression: #1. This gentleman seems to have a recurrence of his bladder cancer. 2. History of prostate cancer. Plan: #1. He will get scheduled for a cystoscopy and transurethral resection of bladder tumors under general endotracheal anesthesia. Future Appointments Appointment Date:07/12/2024 10:30:00 AM Scheduled Provider:Lionel WHITNEY MD Location:[facility] [place] Appointment Type:URO Office Visit Appointment Date:10/09/2024 10:15:00 AM Scheduled Provider:Lionel WHITNEY MD Location:[facility] [place] Appointment Type:URO Office Visit Diagnostic Tests Pending * [facility] Fish and Urine Cyto ([facility]) 05/09/24 [facility] 11-19-2024 Hospital Discharge instructions Patient [...] Up Care 04/13/2024 11:43:40 With:Lionel WHITNEY Address: [address] [place] [address]- Business (1) When: Unknown Comments:Office will call to schedule follow up [facility] 11-19-2024 NoteProgress Note-Physician Patient: MARY [...] All Problems HTN (hypertension) / SNOMED CT [id number] / Confirmed Acute gouty arthritis / SNOMED CT [id number] / Confirmed lots of inflammation per pt sometimes has to get steroids History of prostate cancer / SNOMED CT 3561083180 / Confirmed History of kidney stones / SNOMED CT 9769607523 / Confirmed Impotence / SNOMED CT 9579733388 / Confirmed Bladder cancer / SNOMED CT 9597774797 / Confirmed Spondylolisthesis of cervical region / SNOMED CT 608182098 / Confirmed Chronic obstructive pulmonary disease / SNOMED CT 13440517 / Confirmed GERD (gastroesophageal reflux disease) / SNOMED CT 211296113 / Confirmed BMI 23.0-23.9, adult / SNOMED CT 6429524093 / Confirmed Personal history of colonic polyps / SNOMED CT 5836381364 / Confirmed Chronic GERD / SNOMED CT 791812433 / Confirmed Change in bowel habits / SNOMED CT 577016616 / Confirmed Iron deficiency anemia / SNOMED CT 137486485 / Confirmed Personal history of bladder cancer / SNOMED CT 4909841847 / Confirmed Shoulder impingement syndrome / SNOMED CT 607315650 / Confirmed Ecchymosis / SNOMED CT 636058667 / Confirmed left leg from españa to ankle- box with snowblower in it slipped off a cart and banged his leg. Foot pink and dry with immediate capillary refill, 4t pedal and poterior tibial pulses. Umbilical hernia / SNOMED CT 9799952975 / Confirmed Histories Past Medical History: Active HTN (hypertension) ([id number]) Acute gouty arthritis ([id number]) Comments: 08/22/2014 EST 16:07 Jannette Del Rio RN lots of inflammation per pt sometimes has to get steroids Resolved Cancer of prostate ([id number]): Resolved. Comments: 08/22/2014 EST 16:09 Jannette Del Rio RN just had a surgery done radical prostectomy at [facility] Acid reflux ([id number]): Resolved. Family History: Hypertension Father Diabetes mellitus type 2 Father Depression Sister Procedure history: Cystoscopy (2671057997) on 04/27/2023 at 73 Years. TURBT - Transurethral resection of bladder tumor (6586914736) on 01/14/2023 at 72 Years. TURBT - Transurethral resection of bladder tumor (5973712422) on 02/17/2022 at 72 Years. TURBT - Transurethral resection of bladder tumor (9214597631) on 10/29/2021 at 71 Years. Cystourethroscopy with dilation of urethral stricture (888035922) on 10/14/2021 at 71 Years. Repair of umbilical hernia (41152374) on 06/22/2017 at 67 Years. Comments: 06/22/2017 14:35 Nedra Tavares RN Umbilical hernia repair with mesh ( assisted with robot) Arthroscopy of shoulder (546262622) on 05/20/2017 at 67 Years. Comments: 05/20/2017 19:03 CASS Garcia RN, Zora M LEFT SHOULDER ARTHROSCOPIC, CHONDROPLASTY,DEBRIDEMENT OF PARTIAL ROTATOR CUFF TEAR, REMOVAL RETAINED SUTURE Radical prostatectomy (02069604) in the month of 08/2014 at 64 Years. bilateral fifth partial metatarsal osteotomies and Silver Tailor's bunionectomies on 08/29/2014 at 64 Years. Colonoscopy (350974234) in the month of 05/2014 at 64 Years. Complete repair of rotator cuff (082446912) in 2010 at 61 Years. Comments: 08/22/2014 16:14 Jannette Del Rio RN right Shoulder reconstruction (974302840) in 1998 at 49 Years. Comments: 08/22/2014 16:15 Jannette Del Rio RN left possibly a screw in there per pt Appendectomy (477824762) in 1964 at 15 Years. Arthroplasty of the ankle (5336796760). Comments: 12/30/2018 14:30 Jayne Elkins 1988, 1990 Arthroscopy of knee (817307012). Cervical vertebral fusion (42286292). Social History Social & Psychosocial Habits Alcohol 10/04/2023 Risk Assessment: Low Risk 10/04/2023 Use: Current Substance Abuse 10/04/2023 Risk Assessment: Denies Substance Abuse Tobacco 10/04/2023 Risk Asse (more content not included)...[facility] Comment on above:Result Comment: Electronically Signed By: DEVONTE NOBLE, Lionel Ernandez\Date and Time Signed: 05/09/24 09:50 [id number] NotePatient Education Custom Cystoscopy ??? Voiding after [...] if you have a fever over 100 degrees.[facility] 05-08-2024 NoteNormal sinus rhythm 67 bpm left axis deviation incomplete right bundle branch block poor R wave progression. No comparison EKG.[id number] History of Present illness Narrative* Cady Espinosa MD - 05/08/2024 11:15 AM EST Referred by Dr. Qamar Monterroso for New Patient Visit (Kjnmwdgg-Jalljw-Wpovjjucaxfs) History Of Present Illness: Mary Diaz is [...] (VOLTAREN) 75 mg, 2 times daily HYDROcodone-acetaminophen ([place]) 5-325 mg tablet 1 tablet, Daily PRN [...] further questions arise, Sincerely, Cady Espinosa MD [facility] Provider Attestation - Scribe documentation All medical record entries made by the Scribe were at my direction and personally dictated by me. Ihave reviewed the chart and agree that the record accurately reflects my personal performance of the history, physical exam, discussion and plan. [facility] Work Phone: 1(510) 268-821711-18-2024 Instructions* Patient Instructions* Ella Cruz RN - [...] Provided instructions on exercise. [facility] Work Phone: 1(256) 235-506105-07-2024 Hospital Discharge instructions Patient Education 10/26/2023 11:58:55 [...] Up Care 09/29/2023 09:06:13 With:Lionel WHITNEY Address: [address] [place] [phone] Business (1) When: Unknown Comments:Office will call to schedule follow up [facility]04-15-2024 Hospital Discharge instructions Patient Education 10/04/2023 10:57:15 [...] if anything looks unusual. Men with a tbuley-ivwy-whlrvq risk for skin cancer may want to see a skin washer (vat overhauler) for an annual body check. What are the benefits of screening? Cancer screening is done to look for cancer in the very early stages, before it spreads and becomesharder to treat and before you would start to notice symptoms. Finding cancer early improves the chances of successful treatment. It may save your life. Where to find more information [place] Cancer [employer]: www.cancer.org Centers for Disease Control and Prevention: www.cdc.gov National Cancer Reeders: www.cancer.gov Contact a health care provider if: [...] provider. Document Revised: 11/03/2021 Document Reviewed: 05/03/2020 [employer] Patient Education 2022 [employer]. Follow Up Care 10/01/2022 10:55:16 With:Lionel WHITNEY MD, URL Address: [facility] [address] [place] [address]- [phone] When: Unknown Comments:2 yr w/ PSA [facility] 11-07-2023 Hospital Discharge instructions Patient Education [...] Address: [facility] [address] [place] [address]- Business (1) When: Unknown Comments:Office will call to schedule follow up [facility]07-18-2023 Hospital Discharge instructions Patient Education [...] WHITNEY Address: [facility] [address] [place] [address] [facility] (1) When: Unknown Comments:Office will call to schedule follow up [facility]06-15-2023 Evaluation note* Encounter Date Diagnosis [...] M46.1) Nov, Neurogenic claudication (ICD-10 - R29.818) [facility] Other 05-04-2023 Evaluation note* Encounter Date Diagnosis [...] spine October, Neurogenic claudication (ICD-10 - R29.818) [facility] Other 04-03-2023 Hospital Discharge instructions Patient Education [...] if anything looks unusual. Men with a uakpbq-qgwc-zqqksd risk for skin cancer may want to see a skin washer (vat overhauler) for an annual body check. Where to find more information National Cancer Reeders: https://www.cancer.gov/about-cancer/screening Centers for Disease Control and Prevention: https://www.cdc.gov/cancer/dcpc/prevention/screening.htm [place] Cancer Society: https://www.cancer.org/latest-news/4-sosrud-ezxnwawij-xipma-bke-mbg.html Contact a health care provider if: You [...] 03/04/2017 Document Revised: 02/24/2019 Document Reviewed: 03/04/2017 [employer] Patient Education 2020 [employer]. Follow Up Care 09/19/2021 11:05:08 With:DEVONTE NOBLE, Lionel Burgos, URL Address: [facility] [address] , [place] [address]- When: Unknown [facility] 01-17-2023 Hospital Discharge instructions Patient Education [...] [facility] [address] [place] [address]- Business (1) When: Unknown Comments:Office will call to schedule follow up [facility]09-06-2022 Hospital Discharge instructions Patient Education [...] if anything looks unusual. Men with a ooqmhv-qypk-tjwcbr risk for skin cancer may want to see a skin washer (vat overhauler) for an annual body check. Where to find more information National Cancer Reeders: https://www.cancer.gov/about-cancer/screening Centers for Disease Control and Prevention: https://www.cdc.gov/cancer/dcpc/prevention/screening.htm [place] [employer]: https://www.cancer.org/latest-news/0-bzrrxc-rvfcwlhby-anmhx-eji-utn.html Contact a health care provider if: You [...] 03/04/2017 Document Revised: 02/24/2019 Document Reviewed: 03/04/2017 ElseStump[employer] Patient Education 2020 iCeut[employer]. Follow Up Care 02/05/2022 13:48:40 With:DEVONTE NOBLE, Lionel Burgos, URL Address: [facility] [address] , [place] [address]- [phone] When: Unknown [facility] 05-24-2022 Hospital Discharge instructions Patient Education 11/11/2021 [...] [facility] [address], [place] [address] [facility] (1) When: Unknown Comments:Keep scheduled appointment [facility]05-17-2022 Hospital Discharge instructions Patient Education [...] who: Are older than age 65. Are -[place]. Are obese. Have a family history of [...] cells. Follow these instructions at home: Take sjjo-wgq-ruyqjzb and prescription medicines only as told by [...] 06/07/2006 Document Revised: 05/20/2018 Document Reviewed: 02/15/2017 [employer] Patient Education 2020 iCeutica. Follow Up Care 10/14/2021 11:26:04 With:Lionel WHITNEY MD, URL Address: [facility] [address], [place] [address]- When: Unknown [facility] Evaluation + Plan note Future Appointments Appointment Date:09/21/2022 09:45:00 AM Scheduled Provider:Lionel WHITNEY MD Location:[facility] [place] Appointment Type:URO Office Visit [facility] Evaluation + Plan note Future Appointments Appointment Date:03/09/2022 09:00:00 AM Scheduled Provider: Location:[facility] [place] Appointment Type:URO Nurse Visit Appointment Date:04/15/2022 09:00:00 AM Scheduled Provider: Location:[facility] [place] Appointment Type:URO Nurse Visit Appointment Date:09/21/2022 09:45:00 AM Scheduled Provider:Lionel WHITNEY MD Location:[facility] [place] Appointment Type:URO Office Visit [facility] Evaluation + Plan note Future Appointments Appointment Date:03/09/2022 09:00:00 AM Scheduled Provider: Location:[facility] [place] Appointment Type:URO Nurse Visit Appointment Date:04/15/2022 09:00:00 AM Scheduled Provider: Location:[facility] [place] Appointment Type:URO Nurse Visit Appointment Date:09/21/2022 09:45:00 AM Scheduled Provider:Lionel WHITNEY MD Location:[facility] [place] Appointment Type:URO Office Visit Diagnostic Tests Pending * [facility]rine [facility] App[facility]ments Appointment Date:04/15/2022 09:00:00 AM Scheduled Provider: Location:[facility] [place] Appointment Type:URO Nurse Visit Appointment Date:09/21/2022 09:45:00 AM Scheduled Provider:Lionel WHITNEY MD Location:[facility] [place] Appointment Type:URO Office Visit [facility] evaluation + Plan note Future Appointments Appointment Date:07/20/2022 10:00:00 AM Scheduled Provider: Location:[facility] Appointment Type:URO Nurse Visit Appointment Date:08/17/2022 10:00:00 AM Scheduled Provider: Location:[facility] Appointment Type:URO Nurse Visit Appointment Date:09/21/2022 09:45:00 AM Scheduled Provider:Lionel WHITNEY MD Location:[facility] Appointment Type:URO Office Visit Diagnostic Tests Pending * UroVysion FISH ([facility]) [facility]07[facility] App[facility]ments Appointment Date:08/17/2022 10:00:00 AM Scheduled Provider: Location:[facility] Appointment Type:URO Nurse Visit Appointment Date:09/21/2022 09:45:00 AM Scheduled Provider:Lionel WHITNEY MD Location:[facility] Appointment Type:URO Office Visit [facility] Evaluation + Plan note Future Appointments Appointment Date:09/22/2022 02:00:00 PM Scheduled Provider: Location:[facility] Appointment Type:Urology CALL PAT FT Appointment Date:09/29/2022 11:15:00 AM Scheduled Provider: Location:[facility] Appointment Type:Urology FT [facility] evaluation + Plan note Future Appointments Appointment Date:09/22/2022 02:00:00 PM Scheduled Provider: Location:[facility] Appointment Type:Urology CALL PAT FT Appointment Date:09/29/2022 11:15:00 AM Scheduled Provider: Location:[facility] Appointment Type:Urology FT Diagnostic Tests Pending * Urine Cytology ([facility]) 09/21/22 [facility] evaluation + Plan note Future Appointments Appointment Date:10/04/2023 10:15:00 AM Scheduled Provider:Lionel WHITNEY MD Location:[facility] Appointment Type:URO Office Visit Diagnostic Tests Pending * UroVysion Fish and Urine Cyto ([facility]) [facility]05/23 [facility] Appointments Appointment Date:10/04/2023 10:15:00 AM Scheduled Provider:Lionel WHITNEY MD Location:[facility] Appointment Type:URO Office Visit General Surgery [place] Evaluation + Plan note Future Appointments Appointment Date:10/04/2023 10:15:00 AM Scheduled Provider:Lionel WHITNEY MD Location:[facility] Appointment Type:URO Office Visit Diagnostic Tests Pending * UroVysion Fish and Urine Cyto ([facility]) 04/27/23 [facility] App[facility]ments Appointment Date:10/20/2023 12:00:00 PM Scheduled Provider: Location:[facility] Services Appointment Type:Urology CALL PAT FT Appointment Date:10/26/2023 10:00:00 AM Scheduled Provider: Location:[facility] Appointment Type:Urology FT Appointment Date:10/09/2024 10:15:00 AM Scheduled Provider:Lionel WHITNEY MD Location:[facility] Appointment Type:URO Office Visit Diagnostic Tests Pending * PSA Total 10/04/23 [facility] evaluation + Plan note Future Appointments Appointment Date:10/09/2024 10:15:00 AM Scheduled Provider:Lionel WHITNEY MD Location:[facility] Appointment Type:URO Office Visit Diagnostic Tests Pending * UroVysion Fish and Urine Cyto ([facility]) 10/26/23 [facility] Future App[facility]ments Appointment Date:07/12/2024 10:30:00 AM Scheduled Provider:Lionel WHITNEY MD [facility] App[facility] Type:URO Office Visit Appointment Date:10/09/2024 10:15:00 AM Scheduled Provider:Lionel WHITNEY MD Location:[facility] Appointment Type:URO Office Visit [facility] evaluation + Plan note Future Appointments Appointment Date:07/12/2024 10:30:00 AM Scheduled Provider:Lionel WHITNEY MD Location:[facility] Appointment Type:URO Office Visit Appointment Date:10/09/2024 10:15:00 AM Scheduled Provider:Lionel WHITNEY MD Location:[facility] Appointment Type:URO Office Visit Diagnostic Tests Pending * Urine Cytology ([facility]) 05/22/24 [facility] Evaluation + Plan note Future Appointments Appointment Date:10/09/2024 10:15:00 AM Scheduled Provider:Lionel WHITNYE MD Location:[facility] Appointment Type:URO Office Visit [facility] Evaluation + Plan note Future Appointments Appointment Date:02/26/2025 08:30:00 AM Scheduled Provider:Lionel WHITNEY MD Location:[facility] Appointment Type:URO Procedure 15 min Diagnostic Tests Pending * UroVysion Fish and Urine Cyto ([facility]) 10/24/24 [facility] Evaluation + Plan note Future Appointments Appointment Date:12/05/2024 10:00:00 AM Scheduled Provider:LAUREN CROOK PA-C Location:[facility] Appointment Type:URO Office Visit Appointment Date:12/12/2024 10:00:00 AM Scheduled Provider:LAURNE CROOK PA-C Location:[facility] Appointment Type:URO Office Visit Appointment Date:02/26/2025 08:30:00 AM Scheduled Provider:Lionel WHITNEY MD Location:[facility] Appointment Type:URO Procedure 15 min [facility] evaluation + Plan note Future Appointments Appointment Date:12/12/2024 10:00:00 AM Scheduled Provider:LAUREN CROOK PA-C Location:[facility] Appointment Type:URO Office Visit Appointment Date:02/26/2025 08:30:00 AM Scheduled Provider:Lionel WHITNEY MD Location:[facility] Appointment Type:URO Procedure 15 min [facility] note Future Appointments Appointment Date:02/26/2025 08:30:00 AM Scheduled Provider:Lionel WHITNEY MD Location:[facility] Appointment Type:URO Procedure 15 min [facility] [place] evaluation noteNo assessment information available [facility] Work Phone: Evaluation note* Diagnosis Onset Date Resolution Status Spinal stenosis of cervical region with radiculopathy acute Spinal stenosis of lumbar region with radiculopathy acute [facility] Work Phone: Evaluation note* Diagnosis Onset Date Resolution Status Spinal stenosis of cervical region with radiculopathy acute Spinal stenosis of lumbar region with radiculopathy acute Colonization status acute COPD (chronic obstructive pulmonary disease) acute [facility] Work Phone: Evaluation note* Diagnosis Unequal blood [...] Medication course changed documented in this encounter [facility] Work Phone: Evaluation note* Diagnosis Left carotid bruit Unequal blood pressure in upper extremities documented in this encounter [facility] Work Phone: Evaluation note* Diagnosis Former smoker Personal history of tobacco use, presenting hazards to health Shortness of breath documented in this encounter [facility] Work Phone: Evaluation note* Diagnosis [...] breath BMI 26.0-26.9,adult documented in this encounter [facility] Work Phone: Evaluation note* Diagnosis Malignant neoplasm of urinary bladder, unspecified site (HCC)- Primary documented in this encounter [facility] note* Diagnosis Malignant neoplasm of urinary bladder, unspecified site (HCC)- Primary documented in this encounter [facility] note* Diagnosis Malignant neoplasm of urinary bladder, unspecified site (HCC)- Primary documented in this encounter [facility] note* Diagnosis Malignant neoplasm of urinary bladder, unspecified site (HCC)- Primary documented in this encounter [facility] note* Diagnosis Malignant neoplasm of urinary bladder, unspecified site (HCC)- Primary documented in this encounter [facility] note* Diagnosis Malignant neoplasm of urinary bladder, unspecified site (HCC)- Primary documented in this encounter [facility] note* Diagnosis High risk medication use- Primary Encounter for long-term (current) use of other medications documented in this encounter [facility] note* Diagnosis Malignant neoplasm of urinary bladder, unspecified site (HCC)- Primary documented in this encounter [facility] note* Diagnosis High risk medication use- Primary Encounter for long-term (current) use of other medications documented in this encounter [facility] note* Diagnosis Malignant neoplasm of urinary bladder, unspecified site (HCC)- Primary documented in this encounter [facility] note* Diagnosis UTI symptoms- Primary Other symptoms involving urinary system documented in this encounter [facility] note* Diagnosis Malignant neoplasm of urinary bladder, unspecified site (HCC)- Primary documented in this encounter [facility] note* Diagnosis Malignant neoplasm of urinary bladder, unspecified site (HCC) documented in this encounter [facility] note* Diagnosis Malignant neoplasm of urinary bladder, unspecified site (HCC)- Primary documented in this encounter [facility] note* Diagnosis Malignant neoplasm of urinary bladder, unspecified site (HCC)- Primary documented in this encounter [facility] note* Diagnosis Malignant neoplasm of urinary bladder, unspecified site (HCC)- Primary documented in this encounter [facility] note* Diagnosis Chest pressure Other chest pain Shortness of breath documented in this encounter [facility] Work Phone: Evaluation note* Diagnosis Acute hip pain, left- Primary Trochanteric bursitis of left hip documented in this encounter [facility]* Diagnosis Acute hip pain, left- Primary documented in this encounter [facility]* Diagnosis Trochanteric bursitis of left hip- Primary Acute hip pain, left documented in this encounter [facility]* Diagnosis Malignant neoplasm of urinary bladder, unspecified site (HCC)- Primary [facility] Diagnosis Trochanteric bursitis of left hip- Primary Acute hip pain, left documented in this encounter [facility] HealthcareHistory general Narrative - Reported* Type Description Date [...] KNEE SCOPE Surgical History L shoulder NAE -[facility] 2016 Hospitalization History FLU X2-3 DAYS Hospitalization History see surg. hx. [employer] Other Hospital course Narrative No data available for this section [facility] Hospital Discharge instructions No data available for this section [facility] [employer] progress note No data available for this section [facility] Reason for visit Narrative* Imaging (Routine) - Authorized Specialty Diagnoses / Procedures Referred By Contac t Referred To Contact Cardiology Diagnoses Left carotid bruit Unequal blood pressure in upper extremities Procedures Vascular US Carotid Artery Duplex Bilateral Cady Espinosa MD [address] [address] Phone: tel: fax: Referral ID Status Reason Start Date Expiration Date Visits Requested Visits Authorized [id number] Authorized Perform Procedure 4 05/10/2025 1 1 [facility] Work Phone: reason for visit Narrative* CV Imaging (Routine) - Authorized Specialty Diagnoses / Procedures Referred By Contac t Referred To Contact Cardiology Diagnoses Former smoker Shortness of breath Procedures Transthoracic Echo Complete CT ECHO TTHRC R-T 2D W/WOM-MODE COMPL SPEC&COLR D Cady Espinosa MD [address] [facility] [address] [place] [address] Phone: tel: fax: Referral ID Status Reason Start Date Expiration Date Visits Requested Visits Authorized [id number] Authorized Perform Procedure 4 05/08/2025 1 1 [facility] Work Phone: Refvzw for visit Narrative* Clarence Prior Authorization (Routine) - Authorized Specialty Diagnoses / Procedures Referred By Contac t Referred To Contact Diagnoses Malignant neoplasm of urinary bladder, unspecified site (HCC) Procedures BCG LIVE INTRAVESICAL INSTILLATION, 1 MG Norberto Andrade MD [address] [facility] [place] [address] Phone: tel: fax: Hematology/Oncology [address] [place] [address] Phone: tel: fax: Referral ID Status Reason Start Date Expiration Date V isits Requested Visits Authorized [id number] Authorized 07/26/2024 06/20/[address] [place] [address] for visit Narrative* Cardiac Stress Testing (Routine) - Authorized Specialty Diagnoses / Procedures Referred By Contac t Referred To Contact Cardiology Diagnoses Chest pressure Shortness of breath Procedures Nuclear Stress Test CHG MYOCARDIAL SPECT MULTIPLE STUDIES Cady Espinosa MD [address] [facility] [address] [place] [address] Phone: tel: fax: Referral ID Status Reason Start Date Expiration Date Visits Requested Visits Authorized [id number] Authorized Perform Procedure 07/17/2024 07/17/2025 3 3 [facility] Work Phone: Reason for visit Narrative* Cardiac Stress Testing (Routine) - Authorized Specialty Diagnoses / Procedures Referred By Contac t Referred To Contact Cardiology Diagnoses Chest pressure Shortness of breath Procedures Nuclear Stress Test CHG MYOCARDIAL SPECT MULTIPLE STUDIES Cady Espinosa MD [address] [address] Phone: tel: fax: Referral ID Status Reason Start Date Expiration Date Visits Requested Visits Authorized [id number] Authorized Perform Procedure 07/17/2024 07/17/2025 3 3 [facility] Work Phone: Chief Complaint and Reason for [...] Diagnosis 1 Cervical spondylosis (M47.812) [facility] Referring Provider First Name Zoran Referring Provider Last Name Scott Referring Provider Specialty Neurologica l Surgery Referred Organization [facility] Referred Address [address] [place], [place],[address] Referred Provider Specialty Physical The rapist Referral Priority Routine Reason evaluate and tr eat for neck and back pain Diagnosis 1 Cervical spondylosis (M47.812) Diagnosis 2 Low back pain, unspe cified (M54.50) Referral Organization [facility] Referring Provider First Name Zoran Referring Provider Last Name Scott Referring Provider Specialty Neurologica l Surgery Referred Organization [facility] Referred Provider Raoul Soriano Referred Address [address] [place], [place],[address] Referred Provider Specialty Pain Medicin e Referral [...] 2023 End: August 28, 2023 Esther Lowery BULL CHAIN OPERATOR-C Attending Provider Active Start: August 28, 2023 [...] March 28, 2024 End: March 28, 2024 Coating Mixer Supervisor Relationship Specialty Start Date End Date Deandre Monterroso MD [address] [place] [address] PCP - General Family Medicine 05/08/24 Coating Mixer Supervisor Relationship Specialty [place] [address] [place] [address] PCP - General Family Medicine 05/08/24 Team Status: Inactive Member Role Status Dates Deandre Monterroso MD Primary Care Provider Active Start: July 06, 2024 End: July 06, 2024 Lionel Whitney MD Attending Provider Active St art: July 06, 2024 End: July 06, 2024 Coating Mixer Supervisor Relationship Specialty Start Date End Date Deandre Monterroso MD [address] [place] [address] PCP - General Family Medicine 05/08/24 Coating Mixer Supervisor Relationship Specialty Start Date End Date Lionel Whitney MD [address] [place] [address] Urology 07/18/24 Coating Mixer Supervisor Relationship Specialty Start Date End Date Lionel Whitney MD [address] [place] [address] Urology 07/18/24 Coating Mixer Supervisor Relationship Specialty Start Date End Date Deandre Monterroso MD [address] [place] [address] PCP - General Family Medicine 07/26/24 Lionel Whitney MD [address] [place] [address] Urology 07/18/24 Coating Mixer Supervisor Relationship Specialty Start Date End Date Deandre Monterroso MD [address] [place] [address] PCP - General Family Medicine 07/26/24 Lionel Whitney MD [address] [place] [address] Urology 07/18/24 Coating Mixer Supervisor Relationship Specialty Start Date End Date Deandre Monterroso MD [address] [place] [address] PCP - General Family Medicine 07/26/24 Lionel Whitney MD [address] [place] [address] Urology 07/18/24 Coating Mixer Supervisor Relationship Specialty Start Date End Date Deandre Monterroso MD [address] [place] [address] PCP - General Family Medicine 07/26/24 Lionel Whitney MD [address] [place] [address] Urology 07/18/24 Coating Mixer Supervisor Relationship Specialty Start Date End Date Deandre Monterroso MD [address] [place] [address] PCP - General Family Medicine 07/26/24 Lionel Whitney MD [address] [place] [address] Urology 07/18/24 Coating Mixer Supervisor Relationship Specialty Start Date End Date Deandre Monterroso MD [address] [place] [address] PCP - General Family Medicine 07/26/24 Lionel Whitney MD [address] [place] [id number] Urology 07/18/24 Ingrid Ugalde, RN [address] [facility] [address] [facility] [address] [place], [facility] Specialty Trade Marker Hematology/Oncology 08/07/24 Norberto Andrade MD [address] [address] [place], [facility] Physician Hematology/Oncology 08/07/24 Coating Mixer Supervisor Relationship Specialty Start Date End Date Deandre Monterroso MD [address] [place] [facility] [address] PCP - General Family Medicine 07/26/24 Lionel Whitney MD [address] [place] [address] Urology 07/18/24 Ingrid Ugalde RN [address] [place] [address] Specialty Trade Marker Hematology/Oncology 08/07/24 Norberto Andrade MD [address] [facility] [place] [address] Physician Hematology/Oncology 08/07/24 Coating Mixer Supervisor Relationship Specialty Start Date End Date Deandre Monterroso MD [address] [place] [address] PCP - General Family Medicine 07/26/24 Lionel Whitney MD [address] [place] [address] Urology 07/18/24 nIgrid Ugalde RN [address] [facility] [place] [address] Specialty Trade Marker Hematology/Oncology 08/07/24 Norberto Andrade MD [address] [place] [address] Physician Hematology/Oncology 08/07/24 Coating Mixer Supervisor Relationship Specialty Start Date End Date Deandre Monterroso MD [address] [place] [address] PCP - General Family Medicine 07/26/24 Lionel Whitney MD [address] [place] [address] Urology 07/18/24 Ingrid Ugalde RN [address] [place] [address] Specialty Trade Marker Hematology/Oncology 08/07/24 Norberto Andrade MD [address] [place] [address] Physician Hematology/Oncology 08/07/24 Coating Mixer Supervisor Relationship Specialty Start Date End Date Deandre Monterroso MD [address] [place] [address] PCP - General Family Medicine 07/26/24 Lionel Whitney MD [address] [place] [address] Urology 07/18/24 Ingrid Ugalde RN [address] [place] [address] Specialty Trade Marker Hematology/Oncology 08/07/24 Norberto Andrade MD [address] [place] [address] Physician Hematology/Oncology 08/07/24 Coating Mixer Supervisor Relationship Specialty Start Date End Date Deandre Monterroso MD [address] [place] [address] PCP - General Family Medicine 07/26/24 Lionel Whitney MD [address] [place] [address] Urology 07/18/24 Ingrid Ugalde, RN [address] [place] [address] Specialty Trade Marker Hematology/Oncology 08/07/24 Norberto Andrade MD [address] [facility] [place] [address] Physician Hematology/Oncology 08/07/24 Coating Mixer Supervisor Relationship Specialty Start Date End Date Deandre Monterroso MD [address] [place] [address] PCP - General Family Medicine 07/26/24 Lionel Whitney MD [address] [place] [address] Urology 07/18/24 Ingrid Ugalde RN [address] [place] [address] Specialty Trade Marker Hematology/Oncology 08/07/24 Norberto Andrade MD [address] [place] [address] Physician Hematology/Oncology 08/07/24 Coating Mixer Supervisor Relationship Specialty Start Date End Date Deandre Monterroso MD [address] [place] [address] PCP - General Family Medicine 07/26/24 Lionel Whitney MD [address] [place] [address] Urology 07/18/24 Ingrid Ugalde RN [address] [place] [address] Specialty Trade Marker Hematology/Oncology 08/07/24 Norberto Andrade MD [address] [facility] [place] [address] Physician Hematology/Oncology 08/07/24 Coating Mixer Supervisor Relationship Specialty Start Date End Date Deandre Monterroso MD [address] [place] [address] PCP - General Family Medicine 07/26/24 Lionel Whitney MD [address] [place] [address] Urology 07/18/24 Ingrid Ugalde RN [address] [place] [address] Specialty Trade Marker Hematology/Oncology 08/07/24 Norberto Andrade MD [address] [facility] [place] [address] Physician Hematology/Oncology 08/07/24 Coating Mixer Supervisor Relationship Specialty Start Date End Date Deandre Monterroso MD [address] [place] [address] PCP - General Family Medicine 07/26/24 Lionel Whitney MD [address] [place] [address] Urology 07/18/24 Ingrid Ugalde RN [address] [facility] [place] [address] Specialty Trade Marker Hematology/Oncology 08/07/24 Norberto Andrade MD [address] [facility] [place] [address] Physician Hematology/Oncology 08/07/24 Coating Mixer Supervisor Relationship Specialty Start Date End Date Deandre Monterroso MD [address] [place] [address] PCP - General Family Medicine 07/26/24 Lionel Whitney MD [address] [place], [facility] Urology 07/18/24 Ingrid Ugalde, RN [address] [place] [address] DR [place], [facility] Specialty Trade Marker Hematology/Oncology 08/07/24 Norberto Andrade MD [address] [place] [address] DR [place], [facility] Physician Hematology/Oncology 08/07/24 Coating Mixer Supervisor Relationship Specialty Start Date End Date Deandre Monterroso MD [address] [place] [address] PCP - General Family Medicine 05/08/24 Coating Mixer Supervisor Relationship Specialty Start Date End Date Deandre Monterroso MD [address] [place] [address] PCP - General Family Medicine 05/08/24 Coating Mixer Supervisor Relationship Specialty Start Date End Date Deandre Monterroso MD [address] [place] [phone] PCP - General Family Medicine 01/07/23 Coating Mixer Supervisor Relationship Specialty [place] [address] [place] [phone] PCP - General Family Medicine 01/07/23 Coating Mixer Supervisor Relationship Specialty Start Date End Date Deandre Monterroso MD [address] [place] [address] PCP - General Family Medicine 07/26/24 Lionel [place] MD Urology 07/18/24 Ingrid Ugalde RN [address] [facility] [place] [address] Specialty Trade Marker Hematology/Oncology 08/07/24 Norberto Andrade MD [address] [facility] [place] [address] Physician Hematology/Oncology 08/07/24 Coating Mixer Supervisor Relationship Specialty Start Date End Date Deandre Monterroso MD PCP - General Family Medicine 01/07/23 Coating Mixer Supervisor Relationship Specialty Start Date End Date Deandre Monterroso MD PCP - General Family Medicine 01/07/23 Coating Mixer Supervisor Relationship Specialty Start Date End Date Deandre Monterroso MD PCP - General Family Medicine 01/07/23 Coating Mixer Supervisor Relationship Specialty Start Date End Date Deandre Monterroso MD PCP - General Family Medicine 01/07/23 Coating Mixer Supervisor Relationship Specialty Start Date End Date Deandre Monterroso MD [address] [place] [address] PCP - General Family Medicine 07/26/24 Lionel [place] MD Urology 07/18/24 Ingrid Ugalde RN [address] [facility] [place] [address] Specialty Trade Marker Hematology/Oncology 08/07/24 Norberto Andrade MD [address] [facility] [address] Physician Hematology/Oncology 08/07/24 Coating Mixer Supervisor Relationship Specialty Start Date End Date Deandre Monterroso MD [address] [facility] [place] [address] PCP - General Family Medicine 01/10/25 Coating Mixer Supervisor Relationship Specialty Start Date End Date Deandre Monterroso MD [address] [facility], [place] [address] [phone] PCP - General Family Medicine 01/10/25 Goals (unrecognized section and content) Goals may [...] and content) Reason Comments New Patient Visit Pcczrekj-Qujyrm-Ifcd rtension Specialty Diagnoses / Procedures Referred By Contac t Referred To Contact Diagnoses Uncontrolled hypertension Shortness of breath Procedures ECG 12 Lead Cady Espinosa MD [address] [facility] [address] [place] [address] Phone: tel: fax: Referral ID Status Reason Start Date Expiration Date V isits Requested Visits Authorized [id number] Authorized 05/08/2024 05/08/2025 1 1 Reason Comments Follow-up 8w Specialty Diagnoses / Procedures Referred By Kathrine t Referred To Contact Cardiology Diagnoses Uncontrolled hypertension Procedures Follow Up In Cardiology Cady Espinosa MD [address] [address] Phone: tel: fax: Cady Espinosa MD [address] [address] Phone: tel: fax: Referral ID Status Reason Start Date Expiration Date V isits Requested Visits Authorized [id number] Authorized 05/08/2024 05/08/2025 1 1 Reason Comments [...] feel free to stop in or call [phone] for any questions you may have. Reason Comments Bladder Cancer Reason Comments Care Coordination C1D1 treatment follo w up call Reason Comments Follow Up Reason Comments Radiology CT Specialty Diagnoses / Procedures Referred By Kathrine t Referred To Contact CT IMAGING Diagnoses Malignant neoplasm of urinary bladder, unspecified site (HCC) Procedures CT CHEST W IVCON DIAGNOSTIC COMPUTED TOMOGRAPHY THORAX W/CONTRAST Norberto Andrade MD [address] [place] [address] [place] [address] Phone: tel: fax: [place] [phone] Referral ID Status Reason Start Date Expiration Date V isits Requested Visits Authorized [id number] Closed Auto-Generate d Referral 08/22/2024 06/20/2025 1 1 Reason Comments Bladder Cancer Treatment visit Reason Comments Pain Reason Comments Pain (unrecognized sect ion and content) No Status Records FoundNo Status Records FoundNo Status Records FoundNo Status Records FoundNo Status Records FoundNo Status Records FoundNo Status Records FoundNo Status Records FoundNo Status Records FoundNo Status Records FoundNo Status Records FoundNo Status Records Found INFORMATION SOURCE (unrecogn ized section and content) DATE CREATED AUTHOR 11/27/2022 [facility] DATE CREATED AUTHOR AUTHOR'S ORGANIZ ATION 05/23/2024 [facility] DATE CREATED AUTHOR AUTHOR'S ORGANIZ ATION 07/12/2024 [facility] DATE CREATED AUTHOR AUTHOR'S ORGANIZ ATION 09/04/2024 [facility] DATE CREATED AUTHOR AUTHOR'S ORGANIZ ATION 09/26/2024 [facility] DATE CREATED AUTHOR AUTHOR'S ORGANIZ ATION 10/27/2024 [facility] DATE CREATED AUTHOR AUTHOR'S ORGANIZ ATION 12/12/2024 [facility] DATE CREATED AUTHOR AUTHOR'S ORGANIZ ATION 12/14/2024 [facility] DATE CREATED AUTHOR AUTHOR'S ORGANIZ ATION 01/01/2025 [facility] DATE CREATED AUTHOR AUTHOR'S ORGANIZ ATION 01/07/2025 [facility] DATE CREATED AUTHOR AUTHOR'S ORGANIZ ATION 01/15/2025 [facility] DATE CREATED AUTHOR AUTHOR'S ORGANIZ ATION 01/17/2025 [facility] EPIC Source Comments (unrecognize d section and content) In the event this informatio n is protected by the Federal Confidentiality of Alcohol and Drug Abuse Patient Records regulations: The Federal rules restrict any use of the information to criminally investigate or prosecute any alcohol or drug abuse patient.[facility] the event this information is protected by the Federal Confidentiality of Alcohol and Drug Abuse Patient Records regulations: The Federal rules restrict any use of the information to criminally investigate or prosecute any alcohol or drug abuse patient.[facility] Dayton[facility] the event this information is protected by the Federal Confidentiality of Alcohol and Drug Abuse Patient Records regulations: The Federal rules restrict any use of the information to criminally investigate or prosecute any alcohol or drug abuse patient.[facility] Dayton[facility] the event this information is protected by the Federal Confidentiality of Alcohol and Drug Abuse Patient Records regulations: The Federal rules restrict any use of the information to criminally investigate or prosecute any alcohol or drug abuse patient.[facility] Dayton[facility] the event this information is protected by the Federal Confidentiality of Alcohol and Drug Abuse Patient Records regulations: The Federal rules restrict any use of the information to criminally investigate or prosecute any alcohol or drug abuse patient.[facility] DaytonIn the event this information is protected by the Federal Confidentiality of Alcohol and Drug Abuse Patient Records regulations: The Federal rules restrict any use of the information to criminally investigate or prosecute any alcohol or drug abuse patient.[facility] Dayton[facility] the event this information is protected by the Federal Confidentiality of Alcohol and Drug Abuse Patient Records regulations: The Federal rules restrict any use of the information to criminally investigate or prosecute any alcohol or drug abuse patient.[facility] Dayton[facility] the event this information is protected by the Federal Confidentiality of Alcohol and Drug Abuse Patient Records regulations: The Federal rules restrict any use of the information to criminally investigate or prosecute any alcohol or drug abuse patient.[facility] Dayton[facility] the event this information is protected by the Federal Confidentiality of Alcohol and Drug Abuse Patient Records regulations: The Federal rules restrict any use of the information to criminally investigate or prosecute any alcohol or drug abuse patient.[facility] Dayton[facility] the event this information is protected by the Federal Confidentiality of Alcohol and Drug Abuse Patient Records regulations: The Federal rules restrict any use of the information to criminally investigate or prosecute any alcohol or drug abuse patient.[facility] Dayton[facility] the event this information is protected by the Federal Confidentiality of Alcohol and Drug Abuse Patient Records regulations: The Federal rules restrict any use of the information to criminally investigate or prosecute any alcohol or drug abuse patient.[facility] Dayton[facility] the event this information is protected by the Federal Confidentiality of Alcohol and Drug Abuse Patient Records regulations: The Federal rules restrict any use of the information to criminally investigate or prosecute any alcohol or drug abuse patient.[facility] Dayton[facility] the event this information is protected by the Federal Confidentiality of Alcohol and Drug Abuse Patient Records regulations: The Federal rules restrict any use of the information to criminally investigate or prosecute any alcohol or drug abuse patient.[facility] DaytonIn the event this information is protected by the Federal Confidentiality of Alcohol and Drug Abuse Patient Records regulations: The Federal rules restrict any use of the information to criminally investigate or prosecute any alcohol or drug abuse patient.[facility] DaytonIn the event this information is protected by the Federal Confidentiality of Alcohol and Drug Abuse Patient Records regulations: The Federal rules restrict any use of the information to criminally investigate or prosecute any alcohol or drug abuse patient.[facility] DaytonIn the event this information is protected by the Federal Confidentiality of Alcohol and Drug Abuse Patient Records regulations: The Federal rules restrict any use of the information to criminally investigate or prosecute any alcohol or drug abuse patient.[facility] DaytonIn the event this information is protected by the Federal Confidentiality of Alcohol and Drug Abuse Patient Records regulations: The Federal rules restrict any use of the information to criminally investigate or prosecute any alcohol or drug abuse patient.[facility] DaytonIn the event this information is protected by the Federal Confidentiality of Alcohol and Drug Abuse Patient Records regulations: The Federal rules restrict any use of the information to criminally investigate or prosecute any alcohol or drug abuse patient.[facility] DaytonIn the event this information is protected by the Federal Confidentiality of Alcohol and Drug Abuse Patient Records regulations: The Federal rules restrict any use of the information to criminally investigate or prosecute any alcohol or drug abuse patient.[facility] DaytonIn the event this information is protected by the Federal Confidentiality of Alcohol and Drug Abuse Patient Records regulations: The Federal rules restrict any use of the information to criminally investigate or prosecute any alcohol or drug abuse patient.[facility] DaytonIn the event this information is protected by the Federal Confidentiality of Alcohol and Drug Abuse Patient Records regulations: The Federal rules restrict any use of the information to criminally investigate or prosecute any alcohol or drug abuse patient.[facility] DaytonIn the event this information is protected by the Federal Confidentiality of Alcohol and Drug Abuse Patient Records regulations: The Federal rules restrict any use of the information to criminally investigate or prosecute any alcohol or drug abuse patient.[facility] DaytonIn the event this information is protected by the Federal Confidentiality of Alcohol and Drug Abuse Patient Records regulations: The Federal rules restrict any use of the information to criminally investigate or prosecute any alcohol or drug abuse patient.[facility] DaytonIn the event this information is protected by the Federal Confidentiality of Alcohol and Drug Abuse Patient Records regulations: The Federal rules restrict any use of the information to criminally investigate or prosecute any alcohol or drug abuse patient.[facility] DaytonIn the event this information is protected by the Federal Confidentiality of Alcohol and Drug Abuse Patient Records regulations: The Federal rules restrict any use of the information to criminally investigate or prosecute any alcohol or drug abuse patient.[facility] FOR RECORDS PERTAINING TO PATIENTS WHO ARE [...] BE BASED ON THE PRIMARY CLINICAL RECORDS. [facility] [employer] [facility] provides no warranty or guarantee of the accuracy or completeness of information in this document.
[2025-02-05 13:33] VITALS: BP 151/65; PULSE 69; O2SAT 97
[2025-02-05 13:34] VITALS: BP 146/65; PULSE 68; O2SAT 98
[2025-02-05] MEDS: LIDOCAINE HCL 2% 400 MG/20 ML MDV INJ (13:36)
[2025-02-05] MEDS: BUPIVACAINE HCL 0.25% PF 25 MG/10 ML VIAL 2 ML INJ (13:36)
[2025-02-05] MEDS: DEXAMETHASONE SOD PHOS 10 MG/ML VIAL INJ (13:36)
[2025-02-05] MEDS: IOHEXOL 240 MG/ML - 10 ML VIAL INJ (13:37)
[2025-02-05] MEDS: 0.9 % SODIUM CHLORIDE 10 ML SYRINGE - SALINE FLUSH INJ (13:37)
--- NOTE | 2025-02-05 13:38 | P.ON_ITS ---
Date of procedure: 02/05/25 Pre-op diagnosis: Pain due to lumbar stenosis with neurogenic claudication Post-op diagnosis: same as pre-op Procedure: Procedure: Left L3-4, L4-5 transforaminal epidural steroid injection Medications: Bupivacaine 0.25% 2cc, lidocaine 2% 1cc, dexamethasone 10mg The patient was seen and examined in the preoperative holding area.? Informed consent was obtained and placed on the chart.? Patient was brought to the medical procedure unit and placed in the prone position where a timeout was completed verifying the correct patient, procedure site, position, and planned special equipment using sterile aseptic technique.? Under direct fluoroscopic visualization a 25-gauge Quincke tipped spinal needle was advanced to the designated neural foramen where contrast dye was injected to show adequate spread.? The needle was inserted at level left L3-4. There was no evidence of vascular or adverse uptake.? Epidural spread was appreciated.? The above- mentioned injectate was then placed in a 1.5 mL aliquot preceded by negative aspiration.? The needle was removed. The needle was inserted and the procedure repeated at level left L4-5.? The surgery site was covered.? Patient was taken to the postprocedural recovery area and monitored for an appropriate length of time before found suitable for discharge in the accompaniment of a responsible adult. Anesthesia: Local Surgeon: Tamiko Landa Pathology: none sent Condition: stable Disposition: no change
== END 2025-02-05 13:42 | disposition home or self-care (01) ==
LOC: SURGOUT 12:26
PROVIDERS: PCP Family Medicine; Visit Provider Anesthesiology
DX: M48.062 Spinal stenosis, lumbar region with neurogenic claudication (principal); M54.50 Low back pain, unspecified
CPT/HCPCS: 64483; 64484; J0665; J1100; Q9966

== ENCOUNTER 2025-02-15 08:31 | Outpatient (OUT) | payer MEDICARE, SELFPAY ==
--- OUTSIDE RECORDS SUMMARY | 2025-02-15 08:34 | XMS_ITS | Clinical Summary ---
Author Organization [employer] s tem Address [id number] [address] [place] [address] Care Team Providers Care Bottom Man Name Role Phone Derick Chew DO Primary Care Provider [phone] Allergies Active Allergy Reactions Criticality Noted Date [...] nal Result [facility] EXTERNAL NON-INTERFACED REF LAB [address] [facility] [place] [address] from Last 3 Months or Most Recently Relevant to Health Maintenance Insurance [facility] MEDICARE Care Teams Bottom Man Relationship Specialty Start Date End Date Derick Chew DO [address] [place] [address] PCP - General 03/22/17
--- OUTSIDE RECORDS SUMMARY | 2025-02-15 08:34 | XMS_ITS | Clinical Summary ---
Author Organization [facility] Healthcare Address [address] [place] [address] Care Team Providers Care Percussion Teacher Name Role Phone Deandre [place]aley MD [...] Description 01/16/2025 9:45 AM EDT Office Visit [facility] [address] [address] Jr. Man Colmenares, Trochanteric bursitis of left hip (Primary Dx); Acute hip pain, left 01/16/2025 Bamboo flowsheet [facility] [address] [address] Jr. Man Colmenares, 01/16/2025 Travel 12/06/2024 8:45 AM EDT Office Visit [facility] [address] [place] [address] Jr. Man Colmenares, Trochanteric bursitis of left hip (Primary Dx); Acute hip pain, left 12/06/2024 Bamboo flowsheet [facility] [address] [place] [address] Jr. Man Colmenares, 12/06/2024 Travel from Last 3 Months Immunizations Immunization [...] Dermatology [address] [place] [address] Cristal Mackey MD [address] [place] [address] 07/17/2025 10:00 AM EST Office Visit [facility] [address] [place] [address] Jr. Man Colmenares, DO [address] [facility] [address] [place] [address] 09/11/2025 10:45 AM EDT Office Visit [facility] [address] [place] [address] Cristal Mackey MD [address] [place] [address] Health Maintenance Due Date Last Done Comments CT Colonography 1951 Colonoscopy 1950 Colorectal Cancer Screening 1950 FIT-DNA 1951 FIT 1951 FOBT 1950 Sigmoidoscopy 1950 Influenza Vaccine (#1) 2025 5, 03/23/2023, 03/27/2022, Additional history exists Pneumococcal Vaccine: 65+ Years Completed 8, 07/22/2016 Insurance [employer] Care Teams Percussion Teacher Relationship Specialty Start Date End Date Deandre Staley MD [address] [place] [address] PCP - General Family Medicine 01/10/25
--- OUTSIDE RECORDS SUMMARY | 2025-02-15 08:34 | XMS_ITS | Encounter Summary ---
Author Organization [facility] Address [address] [place] [address] Care Team Providers Care Field Assessor Name Role Phone Deandre [place] MD Primary Care Provider [phone] Deandre Staley MD Primary Care Provider [phone] Encounter Details Date Type Department Care Team (Late st Contact Info) Description 09/28/2024 Orders Only [facility] [address] [facility] [address] [place] [phone] Unallocated, Noms Provider, [address] [place] [address] Social History Tobacco Use Types Packs/Day Years [...] Dermatology [address] [place] [phone] Cristal Mackey MD [address] [place] [address] 07/17/2025 10:00 AM EST Office Visit [facility] [address] [place] [address] Jr. Man Colmenares, DO [address] [facility] [address] [place] [address] 09/11/2025 10:45 AM EDT Office Visit [facility] [address] [place] [address] Cristal Mackey MD [address] [place] [address] documented as of this encounter Procedures Procedure [...] on filedocumented in this encounter Care Teams Field Assessor Relationship Specialty Start Date End Date Deandre Staley MD PCP - General Family Medicine 01/07/23 01/09/25 Deandre Staley MD [address] [place] [address] PCP - General Family Medicine 01/10/25 documented as of this encounter
--- OUTSIDE RECORDS SUMMARY | 2025-02-15 08:34 | XMS_ITS | Clinical Summary ---
Author Organization [facility] Address [address] [place] [address] Care Team Providers Care Cutter Inspector Name Role Phone Unavailable Primary Care Provider [...] mouth if needed. 10/04/2023 Active HYDROcodone-acet aminophen (Sutton) 5-325 mg tablet Take 1 tablet by [...] Description 12/11/2024 9:00 AM EDT Office Visit [facility] [address] [place] [address] Man Burciaga MD Primary hypertension [...] patient's age to complete this topic Insurance [facility] MEDIC[facility]
--- OUTSIDE RECORDS SUMMARY | 2025-02-15 08:34 | XMS_ITS | Encounter Summary ---
Author Organization [facility] Address [address] [place] [address] Care Team Providers Care Resistor Winder Name Role Phone Deandre [place] MD Primary Care Provider [phone] Deandre Staley MD Primary Care Provider [phone] Encounter Details Date Type Department Care Team (Late st Contact Info) Description 11/09/2024 Results Follow-Up [facility] [address] [facility] [address] [place] [address] Jewel Bustillo, SUZAN [address] [facility] [place] [address] MR hip left wo IV [...] Office Visit [facility] [address] [facility] [address] [place] [address] Cristal Mackey MD [address] [facility] [address] [place] [address] 07/17/2025 10:00 AM EST Office Visit [facility] [address] [place] [phone] Jr. Man Colmenares, [address] [facility] [address] [place] [address] 09/11/2025 10:45 AM EDT Office Visit [facility] [address] [place] [phone] Cristal Mackey MD [address] [place] [address] documented as of this encounter Visit Diagnoses Not on filedocumented in this encounter Care Teams Resistor Winder Relationship Specialty Start Date End Date Deandre Staley MD PCP - General Family Medicine 01/07/23 01/09/25 Deandre Staley MD [address] [place] [address] PCP - General Family Medicine 01/10/25 documented as of this encounter
--- OUTSIDE RECORDS SUMMARY | 2025-02-15 08:34 | XMS_ITS | Clinical Summary ---
Author Organization [facility] Address [address] [place] [address] Phone Care Team Providers Care Molded Parts Inspector Name Role Phone Deandre Staley MD Primary Care Provider [phone] Allergies Active Allergy Reactions Criticality Noted Date Comments Codeine Agitation 05/08/2024 Medications diclofenac (Voltaren) 75 mg EC tablet Take 1 tablet (75 mg) by mouth 2 times a day. 3 Active Trelegy Ellipta 100-62.5-25 mcg blister with device Inhale 1 puff early in the morning.. Active HYDROcodone-acetami nophen (Fessenden) 5-325 mg tablet Take 1 tablet by [...] Type Department Care Team Description 01/04/2025 Telephone [facility] [address] [address] Sujatha Goddard MA from Last [...] to complete this topic Insurance # [address] [place] [address] [employer] # [address] [place] [address] [employer] Care Teams Molded Parts Inspector Relationship Specialty Start Date End Date Deandre Staley MD [address] [place] [address] PCP - General Family Medicine 05/08/24
--- OUTSIDE RECORDS SUMMARY | 2025-02-15 08:34 | XMS_ITS | Encounter Summary ---
Author Organization [facility] Address [address] [place] [address] Care Team Providers Care Upper And Bottom Lacer Hand Name Role Phone Deandre Staley MD Primary Care Provider [phone] Deandre Staley MD Primary Care Provider [phone] Encounter Details Date Type Department Care Team (Late st Contact Info) Description 02/12/2023 Abstract [facility] [address] [facility] [address] [place] [phone] Jewel Bustillo, SUZAN [address] [facility] [place] [phone] Social History Tobacco Use Types Packs/Day Years [...] Dermatology [address] [place] [phone] Cristal Mackey MD [address] [place] [address] 07/17/2025 10:00 AM EST Office [facility] [address] [facility] [place] [id number] Jr. Man Colmenares, DO [address] [facility] [address] [place] [address] 09/11/2025 10:45 AM EDT Office Visit [facility] [address] [place] [address] Cristal Mackey MD [address] [facility] [address] [place] [address] documented as of this encounter Visit Diagnoses Not on filedocumented in this encounter Care Teams Upper And Bottom Lacer Hand Relationship Specialty Start Date End Date Deandre Staley MD PCP - General Family Medicine 01/07/23 01/09/25 Daendre Staley MD [address] [place] [address] PCP - General Family Medicine 01/10/25 documented as of this encounter
--- OUTSIDE RECORDS SUMMARY | 2025-02-15 08:34 | XMS_ITS | Encounter Summary ---
Author Organization [facility] Address [address] [place] [address] Phone Care Team Providers Care Bed Teacher Name Role Phone Padmini Murillo Primary Care Provider Deandre Staley MD Primary Care Provider [phone] Encounter Details Date Type Department Care Team (Late st Contact Info) Description 04/19/2024 Scanned Document [facility] [address] [place] [address] Scanning, Generic Provider Social History Tobacco Use [...] on filedocumented in this encounter Care Teams Bed Teacher Relationship Specialty Start Date End Date Padmini Murillo APRN-CNP [address] [place] [address] PCP - General 04/19/24 05/07/24 Deandre Staley MD [address] [place] [address] PCP - General Family Medicine 05/08/24 documented as of this encounter
--- NOTE | 2025-02-15 08:48 | PM.CN ---
Consult Note: HPI Data of Consult Patient: known to practice within the last 3 years Consult date: 02/15/25 Requesting Physician: Erin Shelton NP Primary Care Provider: Deandre Staley MD Consult Narrative Reason for consult: left hip and leg pain Narrative: Ryder Durant a 75 year old male with chronic left hip and left leg pain presents for evaluation. 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 minimal relief with interventional therapy through orthopedics per pt. continues to endorse left hip and left leg pain. pt discouraged as this pain is persisting. no recent falls of injury. prior lumbar MRI consistent with multilevel stenosis and facet arthropathy. pain today in neck and left hip 3/10 sharp, increasing to 5/10 with standing, walking, sleeping, social life, lifting, pulling, pushing. Pain mildly improved with heat and sitting. per pt he is not a surgical candidate for his left hip OA. recently underwent left L3-4 L4-5 TFESI with >50% improvement ongoing cc:: CC: Erin Shelton NP [facility] Medical History Bladder tumor ?D49.4 - Neoplasm of unspecified behavior of bladder (ICD-10) Carotid bruit ?R09.89 - Other specified symptoms and signs involving the circulatory and respiratory systems (ICD-10) Hip pain ?M25.559 - Pain in unspecified hip (ICD-10) High cholesterol ?E78.00 - Pure hypercholesterolemia, unspecified (ICD-10) Hypothyroidism ?E03.9 - Hypothyroidism, unspecified (ICD-10) COPD (chronic obstructive pulmonary disease) ?J44.9 - Chronic obstructive pulmonary disease, unspecified (ICD-10) Arthritis ?M19.90 - Unspecified osteoarthritis, unspecified site (ICD-10) Anemia ?D64.9 - Anemia, unspecified (ICD-10) Bladder cancer ?C67.9 - Malignant neoplasm of bladder, unspecified (ICD-10) 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 - Other specified disorders of bladder (ICD-10) Neck pain ?M54.2 - Cervicalgia (ICD-10) Low back pain ?M54.50 - Low back pain, unspecified (ICD-10) Osteoarthritis ?M19.90 - Unspecified osteoarthritis, unspecified site (ICD-10) Acid reflux ?K21.9 - Gastro-esophageal reflux disease without esophagitis (ICD-10) Hearing deficit ?H91.90 - Unspecified hearing loss, unspecified ear (ICD-10) Prostate cancer ?C61 - Malignant neoplasm of prostate (ICD-10) Former smoker ?Z87.891 - Personal history of nicotine dependence (ICD-10) Hypertension ?I10 - Essential (primary) hypertension (ICD-10) Surgical History H/O cystoscopy ?Z98.890 - Other specified postprocedural states (ICD-10) S/P epidural steroid injection ?Z92.241 - Personal history of systemic steroid therapy (ICD-10) H/O transurethral resection of bladder tumor (TURBT) ?Z98.890 - Other specified postprocedural states (ICD-10) ?Z86.03 - Personal history of neoplasm of uncertain behavior (ICD-10) History of colonoscopy ?Z98.890 - Other specified postprocedural states (ICD-10) History of arthroscopy of knee ?Z98.890 - Other specified postprocedural states (ICD-10) History of foot surgery ?Z98.890 - Other specified postprocedural states (ICD-10) History of appendectomy ?Z90.49 - Acquired absence of other specified parts of digestive tract (ICD-10) History of hernia repair ?Z98.890 - Other specified postprocedural states (ICD-10) ?Z87.19 - Personal history of other diseases of the digestive system (ICD-10) S/P cystoscopy ?Z98.890 - Other specified postprocedural states (ICD-10) H/O transurethral resection of bladder tumor (TURBT) (01/14/23) ?Z98.890 - Other specified postprocedural states (ICD-10) ?Z86.03 - Personal history of neoplasm of uncertain behavior (ICD-10) H/O transurethral resection of bladder tumor (TURBT) ?Z98.890 - Other specified postprocedural states (ICD-10) ?Z86.03 - Personal history of neoplasm of uncertain behavior (ICD-10) S/P cervical spinal fusion ?Z98.1 - Arthrodesis status (ICD-10) H/O prostatectomy ?Z90.79 - Acquired absence of other genital organ(s) (ICD-10) History of ankle surgery ?Z98.890 - Other specified postprocedural states (ICD-10) H/O shoulder surgery ?Z98.890 - Other specified postprocedural states (ICD-10) Family History Other Depression Family history of diabetes mellitus Family history of hypertension Social History Within the past year, how often did you have a drink containing alcohol: 2-4 times a month Smoking status: Former smoker Non-prescribed substance use: denies use Previous occupational history: retired Highest level of school completed/degree received: Associate degree: occupational, technical, vocational program Meds Home Medications and Allergies Home Medications ?Medication ?Instructions ?Recorded ?Confirmed ?Type fluticasone fur. 100 mcg-umeclid 1 inh inhalation DAILY 11/20/22 02/05/25 History 62.5 mcg-vilant 25 mcg inhalat.powder (Trelegy Ellipta) pantoprazole 40 mg tablet,delayed 40 mg PO DAILY 11/20/22 08/07/24 History release liothyronine 25 mcg tablet 25 mcg PO DAILY 06/27/24 02/05/25 History lisinopril 20 mg tablet 20 mg PO DAILY 06/27/24 02/05/25 History lisinopril 20 1 tab PO DAILY 06/27/24 02/05/25 History mg-hydrochlorothiazide 12.5 mg tablet rosuvastatin 20 mg tablet 20 mg PO DAILY 06/27/24 02/05/25 History tizanidine 4 mg capsule 4 mg PO BID PRN muscle spasticity 06/27/24 02/05/25 History hydrocodone 5 mg-acetaminophen 325 1 tab PO DAILY PRN pain #30 tabs 09/27/24 02/05/25 Rx mg tablet ferrous sulfate 325 mg (65 mg mg PO 02/05/25 History iron) tablet,delayed release Allergies Allergy/AdvReac Type Severity Reaction Status Date / Time codeine Allergy Unknown Hives Verified 02/05/25 12:36 oxycodone (From Percocet) AdvReac Agitated Verified 02/05/25 12:36 Exam Constitutional Documenting provider has reviewed patient's vital signs: yes Common normals: no apparent distress, oriented x3, healthy appearing, alert and well nourished General appearance: cooperative HENMT Common normals: normocephalic, hearing grossly normal bilaterally and moist oral mucous membranes Head and scalp: normocephalic Eye Common normals: PERRL Pupil: PERRL Neck & C-Spine Common normals: full ROM General: normal visual inspection Cervical spine: pain with cervical ROM Other: positive Spurlings decreased sensation bilateral C6-7 Chest Common normals: inspection of chest normal Respiratory Common normals: normal respiratory effort, no retractions and no use of accessory muscles Back & Pelvis Lumbar spine/lower back: pain with ROM and straight leg raise negative bilaterally; no lumbar spinal tenderness Neuro Common normals: oriented x3 Sensorium/orientation: alert Psych Common normals: mental status grossly normal, thought process normal, cooperative, affect normal, speech normal and activity/motor behavior normal Speech: normal speech Thought process: normal thought process Results Additional Findings Additional findings: If on a controlled substance or opioids, I have checked an [place] report on this patient and there are no aberrancies noted in the prescribing history.??If on a controlled substance or opioid a drug screen was completed and reviewed within the last year, and if there has not been a drug screen completed we ordered one today to monitor higher risk, state monitored pain medication use. As part of providing excellent, safe, comprehensive care, the following was completed at our patient's visit: 1. A medication reconciliation and review to ensure accurate knowledge of current/active medications, including asking our patients to inform us about any [id number] medications or herbal remedies/nutritional supplements/alternative remedies. 2. A review to specifically ensure our patients have had annual screening for screening for depression, screening for tobacco use, and screening for unhealthy alcohol use. For concerning screenings had a discussion with the patient, provided patient education, and recommended follow-up with primary care provider when appropriate. If patient noted with a risk of falling, they received education on strength, gait, and balance training to prevent future risk of falling. Portions of this note may have been carried over from the previous visit and updated as appropriate. Please note this office utilizes paper charting in addition to the electronic medical record. A list of current medications, vitals, and PMH is available there as the clinical staff outside of myself do not have access to [employer] charting during the clinic day operations. As part of providing quality comprehensive care the current medications, vitals, and PMH were reviewed in the paper chart. Assessment and Plan Assessment and Plan (1) Lumbar stenosis with neurogenic claudication: Assessment and Plan: 02-05-25 left L3-4 L4-5 TFESI >50% improvement (2) Cervical spinal stenosis: (3) Cervical radiculopathy: (4) Chronic prescription opiate use: Plan update UDS for opioid monitoring, sparingly utilizing declining bilateral C6-7 TFESI as this time increase tizanidine 4-8mg hs prn pain/spasms f/u 3 months, sooner if needed
== END 2025-02-15 08:32 | disposition home or self-care (01) ==
LOC: PM 08:31
PROVIDERS: PCP Family Medicine; Visit Provider Nurse Practitioner
DX: M48.062 Spinal stenosis, lumbar region with neurogenic claudication (principal); M48.02 Spinal stenosis, cervical region; M54.12 Radiculopathy, cervical region; Z79.891 Long term (current) use of opiate analgesic
CPT/HCPCS: G0463

== ENCOUNTER 2025-05-10 09:17 | Outpatient (OUT) | payer MEDICARE, SELFPAY ==
--- OUTSIDE RECORDS SUMMARY | 2025-05-10 09:25 | XMS_ITS | CCD ---
Author Organization [facility] CliniSymn Care Team Providers Care Qa Analyst Name Role Phone MD Deandre Monterroso Primary Care Provider [phone] MD Lionel Whitney Attending Provider [phone] Deandre Monterroso Primary Care Physician Leidy Plummer Unavailable Unavailable MD Deandre Monterroso Primary Care Provider [phone] MD Lionel Whitney Attending Provider Zoran Chavez Unavailable SHARON, DR VILLEGAS Admitting Unavailable ABBRADHA, DR VILLEGAS Attending Unavailable HOY ., DR LANIER Primary Care Unavailable ABBAS, DR VILLEGAS Consulting Unavailable HOY ., DR LANIER Primary Care Unavailable WHITNEY ., DR LFOWERS Consulting Unavailable WHITNEY ., DR FLOWERS Admitting [...] Consulting Unavailable DR ZORAN CHAVEZ Consulting Unavailable KRISS .DR LANIER Consulting Unavailable [...] HOY ., DR LANIER Admvidya Unavailable ZARAGOZADEBORAH Consulting Unavailable HOY ., DR LANIER Consulting [...] Unavailable MD Deandre Monterroso Primary Care Provider [phone] MD Zoran Chavez Attending Provider MD Deandre Monterroso Primary Care Provider [phone] LIDA Lowery Attending Provider MD Deandre Monterroso Primary Care Provider LIDA Lowery Attending Provider Deandre Monterroso MD Primary Care Provider Lionel WHITNEY Attending Unavailable Lionel WHITNEY Attending Unavailable Lionel WHITNEY Admitting Unavailable Deandre Monterroso MD Primary Care Provider [phone] Lionel Whitney MD Attending Provider [phone] Lionel Whitney Admitting Unavailable Lionel Whitney Attending Unavailable Deandre Monterroso Primary Care Unavailable Deandre Monterroso Primary Care Unavailable Esther Lowery Admitting Unavailable Esther Lowery Attending Unavailable Deandre Monterroso Primary Care Unavailable Esther Lowery Admitting Unavailable Esther Lowery Attending Unavailable Lionle Whitney MD Unavailable [phone] Deandre Monterroso MD Primary Care Provider [phone] Aftab ZELAYA, Ingrid Tucker Unavailable Norberto Andrade MD Unavailable [phone] Deandre Monterroso MD Primary Care Provider CADY ESPINOSA Referring Unavailable DEANDRE MONTERROSO Primary Care Unavailable CADY ESPINOSA Referring Unavailable DEANDRE MONTERROSO Primary Care Unavailable CADY ESPINOSA Referring Unavailable DEANDRE MONTERROSO Primary Care Unavailable CADY ESPINOSA Referring Unavailable DEANDRE MONTERROSO Primary Care Unavailable Deandre Monterroso MD Primary Care Provider [phone] Lionel Whitney MD Unavailable Deandre Monterroso MD Primary Care Provider [phone] ALEXANDREA GUNTER Attending Unavailable RAYMOND, NORBERTO Referring Unavailable DEANDRE MONTERROSO Primary Care Unavailable VENNJOSHUREDDIONICIO, NORBERTO Referring Unavailable DEANDRE MONTERROSO Primary Care Unavailable DEANDRE MONTERROSO Primary Care Unavailable VENNEPUREDDY, [...] Unavailable HOY, DEANDRE M Primary Care Unavailable CADY ESPINOSA Attending Unavailable HODEANDRE Paredes ALEX Primary Care Unavailable CADY ESPINOSA Referring Unavailable CADY ESPINOSA Attending Unavailable CADY ESPINOSA Referring Unavailable HOY, DEANDRE ALEX Primary Care Unavailable Deandre Monterroso MD Primary Care Provider [phone] Syeda NOBLE, Tmaiko Kilgore Attending Unavailable Syeda NOBLE, Tamiko Kilgore Attending Unavailable Syeda NOBLE, Tamiko Kilgore Attending Unavailable Giedraitis , Andsammie Kilgore Attending Unavailable Giedraitis , Andrius Kilgore Attending Unavailable Giedraitis , Andrius Kilgore Attending Unavailable Giedraitis , Andrius Kilgore Attending Unavailable Giedraitis , Andrius Kilgore Attending Unavailable WHITNEY, Lionel R Attending Unavailable WHITNEY, Lionel R Referring Unavailable WHITNEY, Lionel R Attending Unavailable WHITNEY, Lionel R Admitting Unavailable PETITTI, VASU Baxter Attending Unavailable BUSTILLO, KAREN Ireland Attending Unavailable BUSTILLO, KAREN Ireland Attending Unavailable BUSTILLO, KAREN Ireland Referring Unavailable BUSTILLO, KAREN Ireland Attending Unavailable JR. ABDULLAHI, ALEXANDREA Meyers Attending Unavaila shawn COLMENARES JR., ALEXANDREA Meyers Attending Unavaila ble PETITTAylin, VASU Baxter Attending Unavailable AMBREEN, LAUREN Higginbotham Attending Unavailable AMBREEN, LAUREN Higginbotham Attending Unavailable WHITNEY, Lionel R Admitting Unavailable WHITNEY, Lionel R Attending Unavailable AMBREEN, LAUREN Higginbotham Attending Unavailable WHITNEY, Lionel R Attending Unavailable WHITNEY, Lionel R Attending Unavailable WHITNEY, Lionel R Attending Unavailable WHITNEY, Lionel R Admitting Unavailable WHITNEY, Lionel R Referring Unavailable WHITNEY, Lionel R Attending Unavailable WHITNEY, Lionel R Attending Unavailable Allergies Allergy ClassificationReported Allergen(s)Allergy TypeDate of OnsetReaction(s) Facility (10 sources)Acetaminophen; Translations: [acetaminophen]Drug Ralgmhx25-38-7803 Itching, Itching agitated, Itching agitated, [facility] (20 sources)Codeine; Translations: [Codeine]Drug Rxapffu05-47-4927kmqkUniversity [facility] (12 sources)oxyCODONE; Translations: [oxycodone]Drug Xloiygq47-63-4198Jffvjxm, agitated, Itching, agitated, [facility] (16 sources)Acetaminophen / oxyCODONE; Translations: [acetaminophen-oxycodone] Drug AllergyaggitationExecutive [facility] Rolando Comment on above:pt states this does not work for pt, pt is not allergic to vicodin (7 sources)cyclobenzaprineDrug Soqsyqb80-39-1926qhfbmpcRhtejzoanBrown Memorial Hospital (20 sources)HYDROcodoneDrug Lvnmjbd17-44-6075svfbvcmGkqezfmew [facility] (7 sources)tiZANidineDrug Dvcnvqs00-63-5048vbqjfSgpkezzrgMetroHealth [facility] (7 sources)Acetaminophen / HYDROcodone; Translations: [Vicodin][facility] (2 sources)Acetaminophen / oxyCODONEDrug AllergyMer[facility] (1 source)atorvastatinDrug AllergyMer[facility] (2 sources)tiZANidineDrug AllergyMer[facility] (5 sources)Acetaminophen / oxyCODONE; Translations: [Percocet 5/325]Drug Allergy [facility] (1 source)cyclobenzaprineDrug Uoamiwo50-88-5626GgblqixlhTrihealth Repository (1 source)HYDROcodoneDrug Bytqmqb49-31-5866UeahujbjkTrihealth Repository (1 source)tiZANidineDrug Kqnfjez46-58-1051NxztjhfaqTrihealth Repository (16 sources)Acetaminophen / oxyCODONE; Translations: [OXYCODONE-ACETAMINOPHEN] Drug Avlsfyk72-03-3118[facility] (16 sources)tiZANidine; Translations: [TIZANIDINE HCL]Drug Nkjrajh86-66-4442[facility] Medications Current Medications MedicationDrug Class(es)DatesSig (Normalized)Sig (Original)acetaminophen 325 mg / HYDROcodone bitartrate 5 mg oral tablet (20 sources)Opioid AgonistStart: 81-46-4462tyxuwqipnodsr-hydrocodone 325 mg-5 mg oral tablet 1 tab(s), Refill(s) 0 Start Date: 10/09/24 Status:Ordered Repeat number: 1Start: 90-91-5903guiy 1 tablet by mouth every twenty-four hours as neededHYDROcodone-acetaminophen (NORCO) 5-325 mg per tablet Take 1 tablet by mouth at bedtime as needed. 08/12/2023 ActiveStart: 86-56-8965godd 1 tablet by mouth every twenty-four hours as neededHYDROcodone-acetaminophen ([place]) 5-325 mg tablet Take 1 tablet by mouth once daily as needed for severe pain (7 - 10). 08/12/2023 ActiveStart: 18-78-6723Xirzvzkeqcq-Acetaminophen 5-325 mg tablet Active 1 TAB PO August 12, 2023 12:00amStart: 36-17-9724mass 1 tablet by mouth every six hours as needed for painacetaminophen-hydrocodone 325 mg-5 mg oral tablet 1 tab(s), Oral, q6hr as needed for pain, Refill(s) 0 Start Date: 02/03/23 Status: OrderedamLODIPine 10 mg oral tablet (20 sources)Dihydropyridine Calcium Channel BlockerStart: 08-12-2023 End: 55-74-4589wwFIHSDtib (Norvasc) 10 MG tablet 01/22/2024 10/06/2024 Discontinued (Therapy completed)Start: 02-10-2023 End: 96-38-1001dczc 1 tablet by mouth once dailyamLODIPine (NORVASC) 5 mg tablet Take 5 mg by mouth once daily. 02/10/2023 07/26/2024 Discontinued (Discontinued by another Health Care Provider)Start: 08-07-2019 End: 14-86-4124chfh 1 tablet by mouth at bedtimeAmlodipine 10 mg Tablet Discontinued 10 MG PO Bedtime August 07, 2019 12:00am October 17, 2021 1 1:30amaspirin 81 mg chewable tablet (1 source)Platelet Aggregation Inhibitor, Nonsteroidal Anti-inflammatory Drug Start: 12-11-2024 End: 63-10-7415rgsoicv 81 mg chewable tablet Take 81 mg by mouth every 48 hours. 12/11/2024 12/11/2025 Activecarvedilol 25 mg oral tablet (20 sources)alpha-Adrenergic Boogie, beta-Adrenergic BlockerStart: 10-17-2021 take 1 tablet by mouth twice dailyCarvedilol 25 mg Tablet Active 25 MG PO Twice daily October 16, 2021 11:00pmStart: 96-85-6218qrky 2 tablets by mouth twice dailycarvedilol 6.25 mg Tab 12.5 mg = 2 tab(s), Oral, BID, Refills(s) 0 Start Date: 09/19/21 Status: OrderedStart: 29-27-9439bzsgznpjey 6.25 mg Tab Refills(s) 0 Start Date: 09/19/21 Status: Orderedtake 1 tablet by mouth every twelve hours Carvedilol 12.5 MG 1 tablet with food Orally Twice a day Activecelecoxib 200 mg oral capsule (5 sources)Nonsteroidal Anti-inflammatory DrugStart: 10-27-2024 End: 97-89-6665bthi 1 capsule by mouth once daily at mealtimecelecoxib (CeleBREX) 200 MG capsule Indications: Acute hip pain, left Take 1 capsule (200 mg) by mouth Daily Take with food 30 capsule 1 10/27/2024 12/26/2024 Active colchicine 0.6 mg oral tablet (17 sources)Start: 02-03-2023 End: 24-38-3756bwfv 1 tablet by mouth once daily as needed for painColcrys 0.6 mg oral tablet 0.6 mg = 1 tab(s), Oral, Daily, PRN Gout pain, Refills(s) 0 Start Date: 02/03/23 Status: Ordered Repeat number: 1diclofenac sodium 75 mg delayed release oral tablet (20 sources)Nonsteroidal Anti-inflammatory DrugStart: 10-17-2021 End: 68-97-3137rzcj 1 tablet by mouth twice dailydiclofenac sodium 75 mg Oral EC Tab 75 mg = 1 tab(s), Oral, BID, Refills(s) 0 Start Date: 02/03/23 Status: Ordered Repeat number: 1Start: 08-07-2019 End: 13-82-8967qqsh 1 tablet by mouth twice daily as needed for painDiclofenac Sodium 75 mg Tablet,Delayed Release (Dr/Ec) Discontinued 75 MG PO Twice daily as needed for Pain August 07, 2019 12:00am April 19, 2020 7:04amdoxazosin 1 mg oral tablet (20 sources)alpha-Adrenergic BlockerStart: 07-17-2024 End: 59-45-7051deaczekaq 1 mg Tab 1 mg = 1 tab(s), Refills(s) 0 Start Date: 10/09/24 Status: Ordered Repeat number:1enteric contrast (will be provided with radiology test) (13 sources)Start: 58-74-6105ocqwkdu contrast (will be provided with radiology test) For CT CHESTABD/PEL W IVCON Routine order Administer, As Directed One Time Only, via Oral, Rectal, both Oral and Rectal, Enteric Tube, Stoma orIndwelling Catheter, Enteric Contrast as designated per enteric contrast guidelines 1 Each 08/16/2024 Activefluorouracil 50 mg/ml topical cream (7 sources)Nucleoside Metabolic InhibitorStart: 09-11-2024 End: 02-96-7666Glqrnoclxtof 5 % cream Apply to directed areas on the forearms and backs of hands twice a day x 14 days. Dispense 30 day supply but only use for 14 days. 09/11/2024 Hpaysr71 actuat fluticasone furoate 0.1 mg/actuat / umeclidinium 0.0625 mg/actuat / vilanterol 0.025 mg/actuat dry powder inhaler (20 sources)Anticholinergic, Corticosteroid, beta2-Adrenergic AgonistStart: 65-45-0487nnyz 1 puff(s) by inhalation once jbudlsviadhyflwt-casyjfafs-ijpdcqbz (TRELEGY ELLIPTA) 100-62.5-25 mcg inhalation powder = 1 puff(s), Inhalation, Daily, Refills(s) 0 02/03/2023 ActiveStart: 08-07-2019 Eucphgxodgd-Amcdqzqrr-Quvfhgak (Trelegy Ellipta) 100-62.5-25 mcg Blister With Device Active 1 INH INHALATION Daily August 07, 2019 3:01pmStart: 08-07-2019 Yizpibsaipd-Lrgetctsi-Gzqmdjdl (Trelegy Ellipta) 100-62.5-25 mcg Blister With Device Active 1 INH INHALATION Daily August 07, 2019 12:00amStart: 09-90-2076Cjlaqjcfoov-Umeclidin-Vilanter (Trelegy Ellipta) 100-62.5-25 mcg Blister With Device Active 1 INH INHALATION Daily August 07, 2019 1:00am Orwrbsuwmmg-Btyuacurc-Wdnyal (Trelegy Ellipta) 100-62.5-25 MCG/ACT aerosol powder Inhale. Activetake 1 puff(s) by inhalation once daily nusnpdjsfzi-oxtogtycw-uauskzpp (TRELEGY ELLIPTA) 100-62.5-25 mcg inhalation powder Inhale 1 Puff asinstructed once daily. Activetake 1 puff(s) by inhalation in the morningTrelegy Ellipta 100-62.5-25 mcg blister with device Inhale 1 puff early in the morning.. ActivehydroCHLOROthiazide 12.5 mg / lisinopril 20 mg oral tablet (20 sources)Thiazide Diuretic, Angiotensin Converting Enzyme InhibitorStart: 07-17-2024 End: 21-16-4127tiom 1 tablet by mouth in the morninglisinopril- hydroCHLOROthiazide 20-12.5 MG tablet Take 1 tablet by mouth in the morning. 07/17/2024 07/17/2025 ActiveStart: 05-08-2024 End: 74-88-2456kuuc 1 tablet by mouth once dailylisinopril-hydroCHLOROthiazide (ZESTORETIC) 20-12.5 mg per tablet Take 1 tablet by mouth once daily. 07/17/2024 07/17/2025 Activeiv contrast (will be provided with radiology test) (13 sources)Start: 19-96-6941lz contrast (will be provided with radiology test) CT Chest ABD/PEL-Inject, intravenously, once for1 dose.No IV access, insert saline lock prior to the beginning of sedation, infusion, injection of imaging exam. Discontinue saline lock post exam. If Pt. has a central line or IVAD, may access for administration according to line specific nursing protocol. Once exam is complete flush line and de-access according to line specific nursing protocol in the CT contrast administration guidelines link.1 Each 08/16/2024 Active levoFLOXacin 750 mg oral tablet (3 sources)Quinolone AntimicrobialStart: 11-25-2023 End: 41-54-6345dibtDCKVskqy (Levaquin) 750 MG tablet 11/25/2023 10/06/2024 Discontinued (Therapy completed)levothyroxine sodium 0.025 mg oral tablet (16 sources)l-Thyroxinelevothyroxine (Synthroid, Levoxyl) 25 MCG tablet Take 12.5 mcg by mouth in the morning. Take beforemeals. Activelevothyroxine (Synthroid, Levoxyl) 25 MCG tablet Take by mouth Daily before meals Active End: 12-75-5138emjm 0.5 tablet by mouth in the morninglevothyroxine (Synthroid, Levoxyl) 25 mcg tablet Take 0.5 tablets (12.5 mcg) by mouth early in the m orning.. 05/08/2024 Discontinued (Therapy completed)liothyronine (20 sources)l-TriiodothyronineStart: 54-37-6097aojm 1 tablet by mouth once daily Liothyronine 5 mcg tablet Active 25 MCG PO Daily October 10, 2023 11:00pmStart: 06-97-3082ffcl 25 ug by mouth once dailyLiothyronine Active 25 MCG PO Daily October 11, 2023 12:00amStart: 24-08-1123nbml 1 tablet by mouth in the morning liothyronine (Cytomel) 25 MCG tablet Take 25 mcg by mouth in the morning. 10/04/2023 ActiveStart: 35-40-8848gmab 0.5 tablet by mouth once daily liothyronine (Cytomel) 25 mcg tablet Take 0.5 tablets (12.5 mcg) by mouth once daily. 10/04/2023 ActiveStart: 18-69-0335mrgrlzgdxpeb 25 mcg Tab Refills(s) 0 Start Date: 10/04/23 Status: Ordered Repeat number: 1lisinopril 20 mg oral tablet (20 sources)Angiotensin Converting Enzyme InhibitorStart: 06-22-2017 End: 88-06-2229kmnu 1 tablet by mouth at bedtimeLisinopril 40 mg Tablet Discontinued 40 MG PO Bedtime August 07, 2019 12:00am October 17, 2021 1 1:24amStart: 02-19-2017 End: 23-27-7139vkhfccgmpb 20 mg Tab 20 mg = 1 tab(s), Refills(s) 0 Start Date: 10/09/24 Status: Ordered Repeat number: 1methocarbamol 500 mg oral tablet (20 sources)Muscle RelaxantStart: 77-02-6602qizq 1 tablet by mouth every twenty- four hours as neededmethocarbamol (Robaxin) 500 mg tablet Take 1 tablet (500 mg) by mouth once daily as needed for muscle spasms. 04/21/2023 Active End: 93-79-4022lyzpwygxqfbzb 1,000 mg tablet Take 1,000 mg by mouth as needed (bedtime prn). 12/13/2024 Discontinued (Discontinued by another Health Care Provider) End: 93-86-1544Xfsuprntdijcc 1000 MG tablet Take 1,000 mg by mouth 10/06/2024 Discontinued (Therapy completed)Methocarbamol 1000 MG tablet Take 1,000 mg by mouth Activemethocarbamol 1,000 mg tablet Take 1,000 mg by mouth as needed (bedtime prn). Activemetoprolol tartrate 50 mg oral tablet (5 sources)beta-Adrenergic BlockerStart: 03-28-2024 End: 19-36-2661zgpfjjdtbi tartrate (Lopressor) 50 MG tablet 03/28/2024 10/06/2024 Discontinued (Therapy completed)Start: 59-74-3573Quaruibrsk Tartrate Active MG PO March 28, 2024 12:00amMultivitamin preparation (10 sources)Start: 31-94-2214dsxy 1 tablet by mouth once dailyMultivitamin Active 1 TAB PO Daily October 17, 2021 12:31pmStart: 55-09-6315izjb 1 tablet by mouth once dailyMultivitamin Active 1 TAB PO Daily October 16, 2021 11:00pm Start: 34-95-9939qpum 1 tablet by mouth once dailyMultivitamin Active 1 TAB PO Daily October 17, 2021 12:00amMultivitamin Tablet (1 source)Start: 73-00-8619ddsy 1 tablet by mouth once dailyMultivitamin Tablet Active 1 TAB PO Daily October 16, 2021 11:00pmmv-min/folic/K1/lycopen/lutein (MEN 50 PLUS MULTIVITAMIN ORAL) (20 sources)take 1 tablet by mouth once dailymv-min/folic/K1/lycopen/lutein (MEN 50 PLUS MULTIVITAMIN ORAL) Take 1 tablet by mouth once daily. Activeolmesartan medoxomil 40 mg oral tablet (2 sources)Angiotensin 2 Receptor Blockertake 1 tablet by mouth every twenty- four hoursOlmesartan Medoxomil 40 MG 1 tablet Orally Once a day Activeomeprazole 40 mg Cap-EC (2 sources)Start: 27-60-4546cuod 1 capsule by mouth once dailyomeprazole 40 mg Cap-EC 40 mg = 1 cap(s), Oral, Daily, Refills(s) 0, Control of stomach acid Start Date: 08/22/14 Status: Orderedpantoprazole 40 mg delayed release oral tablet (20 sources)Proton Pump InhibitorStart: 47-99-9267Yrohuybwojzc Active MG PO August 12, 2023 1:00amStart: 27-05-4010jktv 1 tablet by mouth at bedtime pantoprazole (ProtoNix) 40 MG EC tablet Take 40 mg by mouth at bedtime. 10/18/2022 Activerosuvastatin calcium 20 mg oral tablet (20 sources)HMG-CoA Reductase InhibitorStart: 05-08-2024 End: 57-92-8476jiji 1 tablet by mouth in the morningrosuvastatin (Crestor) 20 MG tablet Take 20 mg by mouth in the morning. 07/17/2024 07/17/2025 Active sildenafil 100 mg oral tablet (20 sources)Phosphodiesterase 5 InhibitorStart: 11-81-7703qlpu 1 tablet by mouth once daily as neededsildenafil 100 mg Tab 100 mg = 1 tab(s), Oral, Daily, Take as needed 30 minutes prior to sexual relations, # 30 tab(s), Refills(s) 2, Pharmacy: [id number], 180, cm, 02/26/25 8:38:00 EDT, Height/Length Dosing, 86, kg, 02/26/25 8:38:00 EDT, Weight Dosing Start Date: 02/26/25 Status: Ordered Quantity: 30.0 Unit: tab(s) Repeat number: 3Start: 36-75-5066cqpg 1 tablet by mouth every hour as needed, then take 1 tablet by mouth every twenty- four hours asneededsildenafil (Viagra) 100 MG tablet TAKE 1 TABLET BY MOUTH 1 HR PRIOR TO SEXUAL ACTIVITY NEEDED. DON T EXCEED 1 TABLET IN A 24 HR PERIOD 10/14/2023 ActiveStart: 43-45-5451mggk 1 tablet by mouth every twenty-four hours sildenafil 100 mg Tab 100 mg = 1 tab(s), Oral, As Directed, Take 1 tablet 1 hr prior to sexual activity as needed. Don't exceed 1 tab (100 mg) in a 24 hr period., # 30 tab(s), Refills(s) 3, Pharmacy:[id number], 170, cm, 10/04/23 10:36:00 EDT, Height/Length Dosing, 84, kg, 10/04/23 10:36:00 EDT, Weight Dosing Start Date: 10/04/23 Status: Ordered Quantity: 30.0 Unit: tab(s) Repeat number: 4Start: 14-74-6677jzex 1 tablet by mouth every twenty-four hours sildenafil 100 mg Tab 100 mg = 1 tab(s), Oral, Daily, Take 1 tablet 1 hr prior to sexual activity as needed. Don't exceed 1 tab (100 mg) in a 24 hr period., # 30 tab(s), Refills(s) 3, Pharmacy: [id number], 170, cm, 02/24/22 10:53:00 EDT, Height/Length Dosing, 78, kg, 02/24/22 10:53:00EDT, Weight Dosing Start Date: 07/05/22 Status: OrderedStart: 49-52-6412gigpjvamqx 100 mg Tab 100 mg = 1 tab(s), Oral, Daily, Take 1 pill 30 minutes prior to sexual relations, # 30 tab(s), Refills(s) 3, Pharmacy: [id number], 170, cm, 09/19/21 10:16:00 EDT, Height/Length Dosing, 78, kg, 09/19/21 10:16:00 EDT, Weight Dosing Start Date: 09/19/21 Status: Orderedsolifenacin succinate 10 mg oral tablet (15 sources)Cholinergic Muscarinic AntagonistStart: 10-70-9339hjzhrsskphm (VESIcare) 10 MG tablet 07/06/2024 ActiveTENS Unit (2 sources)Start: 93-85-7395qkKNRsqwyc 4 mg oral tablet (5 sources)Central alpha-2 Adrenergic AgonistStart: 75-35-1155pjwo 1 tablet by mouth every six hours as neededtiZANidine (ZANAFLEX) 4 mg tablet Take 4 mg by mouth every 6 hours as needed. 08/12/2024 ActiveStart: 21-35-7276pfuo 1-2 tablets by mouth at bedtime as needed for muscle spasmstiZANidine 4 mg Tab 1-2 tabs, Oral, Bedtime, PRN Spasm, Refills(s) 0 Start Date: 02/03/23 Status: Ordered take 1 tablet by mouth every eight hourstiZANidine HCl 4 MG 1 tablet as needed Orally Three times a day ActiveTrelegy Ellipta 100 mcg (2 sources)take 1 puff(s) by inhalation once dailyTrelegy Ellipta 100 mcg 1 puff Inhalation Once a day ActiveTrelegy Ellipta 100 mcg-62.5 mcg-25 mcg inhalation powder (13 sources)Start: 67-06-0661ofrb 1 puff(s) by inhalation once dailyTrelegy Ellipta 100 mcg-62.5 mcg-25 mcg inhalation powder = 1 puff(s), Inhalation, Daily, Refills(s) 0 Start Date: 02/03/23 Status: Ordered Repeat number: 1Start: 46-16-7501siaw 1 puff(s) by inhalation once dailyTrelegy Ellipta 100 mcg-62.5 mcg-25 mcg inhalation powder = 1 puff(s), Inhalation, Daily, Refills(s) 0 Start Date: 02/03/23 Status: Ordered Completed/Discontinued Medications MedicationDrug Class(es)DatesSig (Normalized)Sig (Original)allopurinol 300 mg oral tablet (13 sources)Xanthine Oxidase InhibitorStart: 08-07-2019 End: 00-52-2235tdbj 1 tablet by mouth once dailyAllopurinol 300 mg Tablet Discontinued 300 MG PO Daily August 07, 2019 12:00am April 11, 2020 12:50pmbcg (TANISHA BCG) 50 mg in NaCl 0.9% 50 mL (6 sources)Start: 09-13-2024 End: 02-24-210331 mg, INTRAVESICAL, ONCE, 1 dose, On Wed09/13/24 at 1400, Instill into bladder via catheter and retain for 120 minutes, followed by bladder drainage. PROTECT FROM LIGHT Hazardous Chemotherapy Drug: Use appropriate PPE. Protect from Light.Start: 08-30-2024 End: 50-53-967117 mg, INTRAVESICAL, ONCE, 1 dose, On Wed08/30/24 at 1330, Instill into bladder via catheter and retain for 120 minutes, followed by bladder drainage. PROTECT FROM LIGHT Hazardous Chemotherapy Drug: Use appropriate PPE. Protect from Light.Start: 08-23-2024 End: 72-28-131570 mg, INTRAVESICAL, ONCE, 1 dose, On Wed08/23/24 at 1400, Instill into bladder via catheter and retain for 120 minutes, followed by bladder drainage. PROTECT FROM LIGHT Hazardous Chemotherapy Drug: Use appropriate PPE. Protect from Light.Start: 08-16-2024 End: 73-37-645172 mg, INTRAVESICAL, ONCE, 1 dose, On Wed08/16/24 at 1400, Instill into bladder via catheter and retain for 120 minutes, followed by bladder drainage. PROTECT FROM LIGHT Hazardous Chemotherapy Drug: Use appropriate PPE. Protect from Light.Start: 08-09-2024 End: 60-63-833287 mg, INTRAVESICAL, ONCE, 1 dose, On Wed08/09/24 at 1430, Instill into bladder via catheter and retain for 120 minutes, followed by bladder drainage. PROTECT FROM LIGHT Hazardous Chemotherapy Drug: Use appropriate PPE. Protect from Light.Start: 08-02-2024 End: 18-82-100715 mg, INTRAVESICAL, ONCE, 1 dose, On Wed08/02/24 at 1000, Instill into bladder via catheter and retain for 120 minutes, followed by bladder drainage. PROTECT FROM LIGHT Hazardous Chemotherapy Drug: Use appropriate PPE. Protect from Light.cephalexin 500 mg oral capsule (9 sources)Cephalosporin AntibacterialStart: 02-17-2022 End: 63-19-3495bnqf 1 capsule by mouth every twelve hoursCephalexin 500 mg capsule Discontinued 500 MG PO Q12H 14 February 16, 2022 11:00pm July 11:08amStart: 61-57-6017llau 500 mg by mouth every twelve hours Cephalexin Active 500 MG PO Q12H 14 February 17, 2022 12:00amStart: 02-17-2022 take 500 mg by mouth every twelve hoursCephalexin Active 500 MG PO Q12H 14 February 17, 2022 12:00amciprofloxacin 500 mg oral tablet (13 sources)Quinolone AntimicrobialStart: 10-41-8741fzxq 1 tablet by mouth once dailyCipro 500 mg Tab 500 mg = 1 tab(s), Oral, Daily, Take 1 tablet the day before the procedure and 1 tablet after the procedure, # 2 tab(s), Refills(s) 0, Pharmacy: [facility]/pharmacy #[id number], 170, cm, 10/25/2410:14:00 EDT, Height/Length Dosing, 84, kg, 10/04/23 10:36:00 EDT, Weight Dosing Start Date: 04/13/24 Status: OrderedStart: 65-81-5175vsgi 1 tablet by mouth once dailyCipro 500 mg Tab 500 mg = 1 tab(s), Oral, Daily, take one tab day before procedure and one tab after procedure, # 2 tab(s), Refills(s) 0, Pharmacy: [facility]/pharmacy #[id number], 170, cm, 01/20/23 10:45:00 EDT,Height/Length Dosing, 83.5, kg, 01/20/23 10:45:00 EDT, Weight Dosing Start Date: 01/20/23 Status: OrderedStart: 37-57-9955icrd 1 tablet by mouth once dailyCipro 500 mg Tab 500 mg = 1 tab(s), Oral, Daily, Take 1 tablet the day before the procedure and 1 tablet after the procedure, # 6 tab(s), Refills(s) 0, Pharmacy: [facility]/pharmacy #[id number], 170, cm, 09/23/2311:23:00 EDT, Height/Length Dosing, 78, kg, 02/24/22 10:53:00 EDT, W... Start Date: 12/31/22 Status:OrderedStart: 26-42-1743ihhi 1 tablet by mouth once dailyCipro 500 mg Tab 500 mg = 1 tab(s), Oral, Daily, Take 1 tablet the day before the procedure and 1 tablet after the procedure, # 6 tab(s), Refills(s) 0, Pharmacy: [facility]/pharmacy #[id number], 170, cm, 02/24/2210:53:00 EDT, Height/Length Dosing, 78, kg, 02/24/22 10:53:00 EDT, W... Start Date: 07/02/22 Status:OrderedStart: 11-05-2021 take 1 tablet by mouth once dailyCipro 500 mg Tab 500 mg = 1 tab(s), Oral, Daily, Take 1 tab at nighttime prior to the day of procedure, then 1 tab right after the procedure, # 2 tab(s), Refills(s) 0, Pharmacy: [facility]/pharmacy #[id number], 17 0, cm, 11/05/21 11:37:00 EDT, Height/Length Dosing, 78, kg, 11/05/21... Start Date: 11/05/21 Status:OrderedcloNIDine hydrochloride 0.1 mg oral tablet (20 sources)Central alpha-2 Adrenergic AgonistStart: 02-17-2022 End: 44-33-4008eyfr 1 tablet by mouth twice dailyClonidine Hcl 0.1 mg Tablet Discontinued 0.1 MG PO Twice daily February 16, 2022 11:00pm October 11, 2023 2:25pmStart: 71-69-8921hecf 0.1 mg by mouth twice dailyClonidine Hcl Active 0.1 MG PO Twice daily February 17, 2022 12:00amStart: 63-19-7868xfix 0.1 mg by mouth twice dailyClonidine Hcl Active 0.1 MG PO Twice daily February 17, 2022 12:00am diazePAM 5 mg oral tablet (11 sources)BenzodiazepineStart: 04-19-2020 End: 75-37-6685vcyw 1 tablet by mouth four times daily as needed for muscle spasmsDiazepam 5 mg Tablet Discontinued 5 MG PO Four times daily as needed for Muscle Spasm 40 10 2019 11:00pm October 17, 2021 11:30amdoxycycline hyclate 100 mg oral capsule (1 source)Tetracycline-class DrugStart: 80-80-5587zkuc 1 capsule by mouth twice dailydoxycycline hyclate 100 mg Cap 100 mg = 1 cap(s), Oral, BID, Take 1 capsule the day before the procedure and 1 capsule after the procedure, # 2 cap(s), Refills(s) 0, Pharmacy: [facility]/pharmacy #[id number], 188, cm, 02/10/23 14:22:00 EDT, Height/Length Dosing, 82.9, kg, 02/10/23 14:22:00 EDT, Weight Dosing Start Date: 04/12/23 Status: Orderedirbesartan 300 mg oral tablet (20 sources)Angiotensin 2 Receptor BlockerStart: 10-17-2021 End: 73-34-6800jfys 1 tablet by mouth once daily at bedtimeIrbesartan 300 mg Tablet Discontinued 300 MG PO Daily at bedtime October 16, 2021 11:00pm February 06, 2022 1:19pmlidocaine hydrochloride 0.02 mg/mg topical gel (11 sources)Antiarrhythmic, Amide Local AnestheticStart: 09-13-2024 End: mL, OTHER, ONCE, 1 dose, On Wed09/13/24 at 1400, Intravesical administrationStart: 08-30-2024 End: mL, OTHER, ONCE, 1 dose, On Wed08/30/24 at 1330, Intravesical administrationStart: 08-23-2024 End: mL, OTHER, ONCE, 1 dose, On Wed08/23/24 at 1400, Intravesical administrationStart: 08-16-2024 End: mL, OTHER, ONCE, 1 dose, On Wed08/16/24 at 1400, Intravesical administrationStart: 08-09-2024 End: mL, OTHER, ONCE, 1 dose, On Wed08/09/24 at 1430, Intravesical administrationStart: 08-02-2024 End: mL, OTHER, ONCE, 1 dose, On Wed08/02/24 at 1000, Intravesical administrationStart: 08-12-2023 End: 95-21-7003lhjiq 1 dose topically once dailyLidocaine 5 % adhesive patch,medicated Discontinued 1 PATCH TOPICAL Daily August 12, 2023 12: 00am October 11, 2023 2:26pm leave on most painful area for up to 12 hrslosartan potassium 100 mg oral tablet (9 sources)Angiotensin 2 Receptor BlockerStart: 02-06-2022 End: 40-82-6381yzso 1 tablet by mouth once daily at bedtimeLosartan 100 mg tablet Discontinued 100 MG PO Daily at bedtime February 05, 2022 11:00pm February 17, 2022 9:48ammethylPREDNISolone acetate 20 mg/ml injectable suspension (4 sources)CorticosteroidStart: 10-06-2024 End: 45-96-0213vcmyagUGENULRtokqe Acetate (DEPO-Medrol) injection 40 mgStart: 10-06-2024 End: 23-99-357989 mg, Intra-articular, Once PRN Procedure, Starting on Wed10/06/24 at 1030, For 1 doseomeprazole 40 mg delayed release oral capsule (20 sources)Proton Pump InhibitorStart: 08-22-2014 End: 03-45-4316kuxm 1 capsule by mouth once daily as needed for gastroesophageal reflux diseaseOmeprazole 40 mg Capsule,Delayed Release(Dr/Ec) Discontinued 40 MG PO Daily as needed for HeartburnFebruary 2019 12:00am October 11, 2023 2:26pmoxyCODONE hydrochloride 5 mg oral tablet (11 sources)Opioid AgonistStart: 04-19-2020 End: 19-49-8876xbnv 1 tablet by mouth every four to six hours as needed for pain Oxycodone 5 mg Tablet Discontinued 5 MG PO EVERY 4-6 HOURS as needed for Pain Scale 1 - 5 70 14 April 19, 2020 October 17, 2021 11:31amregadenoson (Lexiscan) injection 0.4 mg (1 source)Start: 09-20-2024 End: .4 mg, intravenous, Once, On Wed09/20/24 at 1415, For 1 doseTc- 99m tetrofosmin (Myoview) injection 10 millicurie (1 source)Start: 09-20-2024 End: 78-46-820528 millicurie, intravenous, Once in imaging, Starting on Wed09/20/24 at 1238, For 1 dose, Sgcwzmexda81 to 90 minutes prior to imaging unless otherwise indicated.Tc-99m tetrofosmin (Myoview) injection 30 millicurie (1 source)Start: 09-20-2024 End: millicurie, intravenous, Once in imaging, Starting on Wed09/20/24 at 1349, For 1 dose, Nbzcdgqadi08 to 90 minutes prior to imaging unless otherwise indicated. Problems Active Problems Problem ClassificationProblemDateDocumented DateEpisodic/ChronicAcute and unspecified renal failure (1 source)Acute kidney failure, unspecified; Translations: [ACUTE KIDNEY FAILURE UNSPECIFIED]Onset: 20-55-3484DmgkggfaSqmprf of bladder (20 sources)Malignant tumor of urinary bladder; Translations: [Malignant neoplasm of bladder, unspecified]Onset: 21-27-6656IgxcwzbLsdqwj of bladder (20 sources)Personal history of malignant neoplasm of bladder; Translations: [History of malignant neoplasm of bladder]Onset: 00-15-3594DlrtafbpSfpjwz of prostate (20 sources)Malignant tumor of masdmvyb36-21-1098OgwzskbGxqbjzd on above:[facility] other and unspecified primary (11 sources)H/O: malignant accertjl97-68-5260XftfrqonUjiletw obstructive pulmonary disease and bronchiectasis (17 sources)Chronic obstructive lung disease; Translations: [Chronic obstructive pulmonary disease, unspecified]27-29-6347DwjkqjoLfuuaxt on above: mild Deficiency and other anemia (14 sources)Iron deficiency anemia; Translations: [Iron deficiency anemia, unspecified]Onset: 29-04-6346YcwcmlrvXwmsgboqz of lipid metabolism (13 sources)Mixed hyperlipidemia; Translations: [Mixed hyperlipidemia]Onset: 755983-84-1037YzwyhuaKvwfehberb disorders (20 sources)Gastroesophageal reflux disease; Translations: [Gastro-esophageal reflux disease without esophagitis]Onset: 966676-49-1137EqhocuyNvrlzvvlh hypertension (20 sources)Hypertensive disorder; Translations: [Essential hypertension]Onset: 282961-91-7483QnufgkfFlvoc and electrolyte disorders (1 source)Hypokalemia; Translations: [HYPOKALEMIA]Onset: 95-22-7511Rxqkbbzv Genitourinary symptoms and ill-defined conditions (3 sources)Blood in urine; Translations: [Gross hematuria]Onset: 11-04-2021 EpisodicGout and other crystal arthropathies (20 sources)Primary gout; Translations: [Other chondrocalcinosis, right knee] Onset: 024648-23-2686DectsjjKpetvui on above:lots of inflammation per pt sometimes has to get steroidsImmunizations and screening for infectious disease (4 sources)Infectious disease carrier; Translations: [Carrier of infectious disease, unspecified]89-52-8834CrcscjpbKuxhwhmql of unspecified nature or uncertain behavior (2 sources)Neoplastic disease; Translations: [Neoplasm of unspecified behavior of bone, soft tissue, and skin]63-86-0272QibmrtpdOybwdjvuj or stenosis of precerebral arteries (16 sources)Occlusion and stenosis of bilateral carotid arteries; Translations: [Occlusion and stenosis of unspecified carotid artery]Onset: 19-06-7304Sqjsfmp Osteoarthritis (20 sources)Osteoarthritis; Translations: [Osteoarthrosis, unspecified whether generalized or localized, unspecified site]Onset: 551996-72-9332Igzxxgj Other acquired deformities (2 sources)Acquired spondylolisthesis; Translations: [Spondylolisthesis, cervical region]EpisodicOther aftercare (3 sources)Taking high risk medication; Translations: [Other termination clerk (current) drug therapy]92-49-9239FeofxhvxTiqgq and unspecified benign neoplasm (14 sources)History of polyp of colon; Translations: [Personal history of colonic polyps]Onset: 74-91-7226DvlyckgxVvsoi circulatory disease (6 sources)Disorder of carotid artery; Translations: [Disorder of arteries and arterioles, unspecified]Onset: 620062-61-0818EmsikoyQqbeq connective tissue disease (2 sources)Other symptoms and signs involving the nervous systemEpisodicOther connective tissue disease (8 sources)Trochanteric bursitis of left hip; Translations: [Trochanteric bursitis, left hip]51-83-8821OsceadaeNlsio ear and sense organ disorders (15 sources)Sensorineural hearing loss, bilateral; Translations: [Sensorineural hearing loss, bilateral]Onset: 141700-34-8282UdbbahuHgygi gastrointestinal disorders (14 sources)Altered bowel function; Translations: [Change in bowel habit]Onset: 10-38-4708MnbvuscxAkffa lower respiratory disease (1 source)Other forms of dyspnea; Translations: [OTHER FORMS OF DYSPNEA]Onset: 59-08-0023DcaokzmySuxmr male genital disorders (6 sources)Secondary erectile dysfunction; Translations: [Erectile dysfunction following radical prostatectomy]Onset: 03-27-0434QppsmbkJdvjh male genital disorders (20 sources)Erectile dysfunction following radical prostatectomy; Translations: [Erectile dysfunction followingradical prostatectomy]Onset: ChronicOther nervous system disorders (4 sources)Neuralgia/neuritis - ankle/foot; Translations: [Unspecified mononeuropathy of left lower limb]ChronicOther nervous system disorders (19 sources)Chronic pain; Translations: [Other chronic pain]Onset: 01-12-2023 59-10-4203CrfmcfiWryiu nervous system disorders (2 sources)Other chronic painChronicOther non-traumatic joint disorders (10 sources)Hip pain; Translations: [Pain in left hip]40-13-3516GrmoiufzEnfye skin disorders (2 sources)Actinic keratosis; Translations: [Actinic keratosis]02-27-2025 EpisodicPeripheral and visceral atherosclerosis (1 source)Peripheral vascular disease, unspecified; Translations: [PERIPHERAL VASCULAR DISEASE UNS]Onset: 56-96-8506EsjoghnXtohktfxw (except that caused by tuberculosis or sexually transmitted disease) (1 source)Pneumonia, unspecified organism; Translations: [PNEUMONIA UNSPECIFIED ORGANISM]Onset: 75-16-1327UeceynnxTillytxnrs (except in labor) (1 source)Sepsis, unspecified organism; Translations: [SEPSIS UNSPECIFIED ORGANISM]Onset: 97-21-8353VrcylewhMninowgrrvv; intervertebral disc disorders; other back problems (20 sources)Degeneration of cervical intervertebral disc; Translations: [Other cervical disc degeneration, unspecified cervical region]Onset: 09-49-7075Rdlifyw Unclassified (3 sources)LOW BACK PAIN, UNSPECIFIED; Translations: [LOW BACK PAIN, UNSPECIFIED]Onset: 00-27-8971Dxoblzococpq (2 sources)COUGH, UNSPECIFIED; Translations: [COUGH, UNSPECIFIED]Onset: 85-94-1980Locjqzkhjojs (1 source)CONTACT W/AND (SUSP) EXPOS COVID-19; Translations: [CONTACT W/AND (SUSP) EXPOS COVID-19]Onset: 33-47-8689Lsingvwpjuya (13 sources)Body mass index 20-24 - yjvtqm36-85-5262 Past or Other Problems Problem ClassificationProblemDateDocumented DateEpisodic/ChronicAbdominal hernia (20 sources)Umbilical hernia; Translations: [Umbilical hernia without obstruction or gangrene]Onset: 553674-63-8557FdjphihfVvjpeyol of urinary tract (20 sources)History of calculus of kidney; Translations: [Personal history of urinary calculi]Onset: 93-50-9229YgcsmuctLhadif of prostate (20 sources)Personal history of malignant neoplasm of prostate; Translations: [History of malignant neoplasm ofprostate]Onset: 61-18-6938CptemmbwP Codes: Fall (1 source)Fall on same level from slipping, tripping and stumbling with subsequent striking against other object, initial encounter; Translations: [FALL SAME LVL SLIP STRK OTH OBJ INT]Onset: 25-43-3213CeomjgxbExtovktrfsf chest pain (15 sources)Chest discomfort; Translations: [Other chest pain]Onset: 07-17-2024 61-21-4181HiuzlddkJxiph acquired deformities (20 sources)Spondylolisthesis; Translations: [Spondylolisthesis, cervical region]Onset: 358055-86-8955GflbjxweDlgrvsk on above:Problem List clean-up per request of Phys. EHR CmteOther aftercare (3 sources)Other termination clerk (current) drug therapy; Translations: [OTH PARACHUTE MENDER CURRENT DRUG THERAPY]Onset: 03-46-6595GwvzujpdWczae aftercare (11 sources)Treatment changed; Translations: [Other senior care (current) drug therapy]Onset: 933231-58-1090UyfysbohIlbdj circulatory disease (20 sources)Ecchymosis; Translations: [Hemorrhage, not elsewhere classified] Onset: 959493-04-2195BcvnwjldQuostay on above:left leg from [place]paña to ankle- box with snowblower in it slipped off a cart and banged his leg. Foot pink and dry with immediate capillary refill, 4t pedal and poterior tibial pulses.Other circulatory disease (8 sources)Other specified symptoms and signs involving the circulatory and respiratory systems; Translations:[OTH SPEC SX SIGNS INVLV CIRC RS]Onset: 34-74-5336TlxatjwsVgucr circulatory disease (13 sources)Unequal blood pressure in arms; Translations: [Other specified symptoms and signs involving the circulatory and respiratory systems]Onset: 280258-53-2430YeypiuejJefue circulatory disease (11 sources)Carotid bruit; Translations: [Other specified symptoms and signs involving the circulatory and respiratory systems]Onset: 221440-14-1531 EpisodicOther connective tissue disease (20 sources)Impingement syndrome of shoulder region; Translations: [Impingement syndrome of unspecified shoulder]Onset: 884002-42-5281SzkgbjmvRowme ear and sense organ disorders (15 sources)Bilateral tinnitus; Translations: [Tinnitus, bilateral]Onset: 355801-85-5305RwbzhplaZnqcm fractures (4 sources)Multiple fractures of ribs, right side, initial encounter for closed fracture; Translations: [MX FXRIBS RT SIDE INITIAL CLOS FX]Onset: 05-25-2022 EpisodicOther injuries and conditions due to external causes (3 sources)Unspecified injury of thorax, initial encounter; Translations: [UNSPECIFIED INJURY THORAX INITIAL]Onset: 21-63-9207HzwkvhepDaojo injuries and conditions due to external causes (10 sources)H/O: fracture; Translations: [Personal history of (healed) traumatic fracture]Onset: 061796-15-4596CxfpymweGrvos injuries and conditions due to external causes (2 sources)Personal history of (healed) traumatic fracture; Translations: [Personal history of (healed) traumatic fracture]Onset: 90-93-6338IyntvutqNxqwu lower respiratory disease (20 sources)Dyspnea; Translations: [Shortness of breath]Onset: 05-08-2024 28-16-0350RohpksteDuyjz lower respiratory disease (3 sources)Shortness of breath; Translations: [Shortness of breath]Onset: 02-61-8864IrijhnhjZypaw nervous system disorders (17 sources)Paresthesia; Translations: [Paresthesia of skin]Onset: 01-12-2023 88-49-1272OxryynevDwegy non-traumatic joint disorders (4 sources)Pain in right knee; Translations: [PAIN IN RIGHT KNEE]Onset: 11-22-1094JomqrmioTskwo nutritional; endocrine; and metabolic disorders (11 sources)Overweight in adulthood with body mass index of 25 or more but less than 30; Translations: [Body mass index (BMI) 25.0-25.9, adult]Onset: 05-08-2024 08-50-1474GwgqglvlRdrkk nutritional; endocrine; and metabolic disorders (2 sources)Body mass index (BMI) 26.0-26.9, adult; Translations: [Body mass index (BMI) 26.0-26.9, adult]Onset: 25-88-0344NqfijoylFrxxl nutritional; endocrine; and metabolic disorders (2 sources)Body mass index (BMI) 25.0-25.9, adult; Translations: [Body mass index (BMI) 25.0-25.9, adult]Onset: 87-60-9754HrbeuwvhJurbdbnei and history of mental health and substance abuse codes (19 sources)Personal history of nicotine dependence; Translations: [Ex-smoker] Onset: 163308-19-0946SqmloyrsOdotmxzemzi; intervertebral disc disorders; other back problems (20 sources)Chronic low back pain; Translations: [Low back pain, unspecified] Onset: 198996-96-7985QswpgzdlEhiaieubvkmp (3 sources)Low back pain, unspecified M54.50Unclassified (1 source)LOW BACK PAIN, UNSPECIFIED; Translations: [LOW BACK PAIN, UNSPECIFIED] Onset: 53-05-7568Fsfgcuqacfet (1 source)COUGH, UNSPECIFIED; Translations: [COUGH, UNSPECIFIED]Onset: 72-82-5100Vtjbvtgftcvx (9 sources)Onset: 624310-02-4868Kxzrosg tract infections (4 sources)Urinary tract infection, site not specified; Translations: [UTI SITE NOT SPECIFIED]Onset: 08-76-8686Zqzlfkzs Results Test NameValueInterpretationReference RangeFacilityReminderson 03-13-2025 RemindersReminders From: Loretta Simons To: [place] - Recalls Whitney; Sent: 03/13/2025 13:55:29 EDT Show up: 05/21/2025 13:55:00 EST Subject: cysto/needs fish/cytol Due Date/Time: 06/18/2025 13:55:00 EST Reminder/Recall Patient is due in August for 3 month cysto/fish/cytol, bt ckNoCincinnati [facility] CenterRemindersReminders From: Loretta Simons To: [place] - Recalls Whitney; Sent: 02/22/2025 11:09:15 EDT Show up: 03/21/2025 11:09:00 EDT Subject: cysto/fish/cytol Due Date/Time: 04/16/2025 11:09:00 EDT Reminder/Recall Patient is due in for 3-4 month cysto/fish/cytol, bt ck Patient sched 05/28/25NormalFishHoly [facility] HospitalUro[facility] Urine Cyto ([facility])on 20-39-1151XVQCUC & UCDiagnosis InfoInvalid Interpretation Code [facility] HospitalComment on above:Result Comment: A:Urine,Bladder Wash:Bladder Wash Diagnosis Summary - Adequate cellularity for evaluation. Diagnosis Summary - The [facility] FISH study detected normal copy numbers for chromosomes 3, 7, 17,and 9p21. 117 cells were analyzed in this evaluation. No evidence of aneuploidy for chromosomes 3, 7, or 17 or deletion of the 9p21 locus was found in cells present in this specimen. This test does not rule out the possibility of a low grade non-invasive papillary urothelial carcinoma. These findings should be correlated with cytology and cystoscopy results. * CPT: 21234, 38934. 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 Electronically signed by : on: 03/05/2025 08:20:44Performed By: #### [id number] #### [facility] [address], [place] [address]Yu Panel Informationon [id number] HealthcareType of biopsy: tangential Informed consent: discussed and consent obtained Informed consent comment: The risks and benefits of the biopsy were discussed. Risks include but are not limited to bleeding, infection, scarring, pain, and nerve damage. An opportunity to ask questions prior to the procedure was permitted and all questions were answered. Patient was prepped and draped in usual sterile fashion: area cleansed with alcohol. Anesthesia: the lesion was anesthetized in a standard fashion Anesthetic: 1% lidocaine w/ epinephrine 1-100,000 buffered w/ 8.4% NaHCO3 Instrument used: DermaBlade Hemostasis achieved with: electrodesiccation Outcome: patient tolerated procedure well Outcome comment: The specimen was placed in a prelabeled formalin container to be sent for pathology Post-procedure details: sterile dressing applied and wound care instructions given Post-procedure details comment: Emphasized need to contact clinic for any signs of infection, uncontrollable bleeding, or complications. Dressing type: bandage Additional details: Photo taken Amount of lidocaine used: 1.0 [facility] HealthcareAmbulatory Visit Summaryon 57-31-3064Kowkxpofco Visit SummaryAmbulatory Visit Summary MARY DIAZ :1950 Visit Date:02/26/2025 Ambulatory Visit Instructions Your Diagnosis Personal history of bladder cancer History of prostate cancer History of [...] EC Tab) doxazosin (doxazosin 1 mg Tab) fluticasone/umeclidinium/vilanterol (Trelegy Ellipta 100 mcg-62.5 mcg-25 mcg inhalation powder) hydrochlorothiazide-lisinopril (hydrochlorothiazide-lisinopril 12.5 mg-20 mg Tab) liothyronine (liothyronine 25 mcg Tab) lisinopril (lisinopril 20 mg Tab) pantoprazole (Pantoprazole [address] Tab) sildenafil (sildenafil 100 mg Tab) Procedures Performed Cystoscopy (02/26/2025), TURBT - Transurethral resection of bladder tumor (07/06/2024), Cystoscopy (04/27/2023), TURBT - Transurethral resection of bladder tumor (01/14/2023), TURBT - Transurethral resection of bladder tumor (02/17/2022), TURBT - Transurethral resection of bladder tumor (10/29/2021), Cystourethroscopy with dilation of urethral stricture (10/14/2021), Repair of umbilical hernia (06/22/2017), Arthroscopy of shoulder (05/20/2017), bilateral fifth partial metatarsal osteotomies andSilver Tailor's bunionectomies (08/29/2014), Radical prostatectomy (08/2014), Colonoscopy (05/2014), Complete repair of rotator cuff (2010), Shoulder reconstruction (1998), Appendectomy (1964), Arthroplasty of the ankle, Arthroscopy of knee, Cervical vertebral fusion. Discharge Vitals Temperature (Temporal Artery) 37 ???C Heart Rate (Peripheral) 72 Respiratory Rate 18 Blood Pressure 131/78 Height 180 cm Height 71 in Weight 86 kg Weight 189.597 lb BMI 26.54 What to do next You Need to Schedule the Following Appointments Follow Up with DEVONTE NOBLE, CAROLINA Salazar When: Comments: 3 mos for cysto/bt ck Where: [address] [place] [address] [place] [address] Medications What How Much When Instructions Unchanged [...] Tablets By Mouth 2 times a day Contactprescribing physician if questions or concerns Unchanged doxazosin (doxazosin 1 mg Tab) 1 Tablets Contact prescribing physician if questions or concerns Unchanged fluticasone/ umeclidinium/ vilanterol (Trelegy Ellipta 100 mcg-62.5 mcg-25 mcg inhalationpowder) 1 Puffs Inhalation Every day Contact prescribing physician if questions or concerns Unchanged hydrochlorothiazide-lisinopril (hydrochlorothiazide-lisinopril 12.5 mg-20 mg Tab) 1 Tablets Contact prescribing physician if questions or concerns Unchanged liothyronine (liothyronine 25 mcg Tab) Contact prescribing physician if questions or concerns Unchanged lisinopril (lisinopril 20 mg Tab) 1 Tablets Contact prescribing physician if questions orconcerns Unchanged pantoprazole (Pantoprazole [address] Tab) 1 Tablets By Mouth Every day Contact prescribingphysician if questions or concerns Unchanged sildenafil (sildenafil 100 mg Tab) 1 Tablets By Mouth As Directed Take 1 tablet 1 hr prior to sexual activity as needed. Don't exceed 1 tab (100 mg) in a 24 hr period. Contact prescribing physician if questions or concerns Medications and Immunizations Administered Given lidocaine Top 2% Gel w/Appl 6 mL, 6 mL, Topical. For: Personal history of bladder cancer Allergies codeine (hives/rashes) Problems Ongoing - Any [...] choosing us for your care. Education Materials Cancer Screening for Males A cancer screening is a test or exam that checks for cancer. Work with your health care provider tocreate a cancer (more content not included)...Normal [facility] HospitalAmbulatory Visit SummaryAmbulatory Visit Summary MARY DIAZ :1950 Visit Date:02/26/2025 Ambulatory Visit Instructions Your Diagnosis Personal history of bladder cancer History of prostate cancer History of [...] EC Tab) doxazosin (doxazosin 1 mg Tab) fluticasone/umeclidinium/vilanterol (Trelegy Ellipta 100 mcg-62.5 mcg-25 mcg inhalation powder) hydrochlorothiazide-lisinopril (hydrochlorothiazide-lisinopril 12.5 mg-20 mg Tab) liothyronine (liothyronine 25 mcg Tab) lisinopril (lisinopril 20 mg Tab) pantoprazole (Pantoprazole [address] Tab) sildenafil (sildenafil 100 mg Tab) Procedures Performed Cystoscopy (02/26/2025), TURBT - Transurethral resection of bladder tumor (07/06/2024), Cystoscopy (04/27/2023), TURBT - Transurethral resection of bladder tumor (01/14/2023), TURBT - Transurethral resection of bladder tumor (02/17/2022), TURBT - Transurethral resection of bladder tumor (10/29/2021), Cystourethroscopy with dilation of urethral stricture (10/14/2021), Repair of umbilical hernia (06/22/2017), Arthroscopy of shoulder (05/20/2017), bilateral fifth partial metatarsal osteotomies andSilver Tailor's bunionectomies (08/29/2014), Radical prostatectomy (08/2014), Colonoscopy (05/2014), Complete repair of rotator cuff (2010), Shoulder reconstruction (1998), Appendectomy (1964), Arthroplasty of the ankle, Arthroscopy of knee, Cervical vertebral fusion. Discharge Vitals Temperature (Temporal Artery) 37 ???C Heart Rate (Peripheral) 72 Respiratory Rate 18 Blood Pressure 131/78 Height 180 cm Height 71 in Weight 86 kg Weight 189.597 lb BMI 26.54 What to do next You Need to Schedule the Following Appointments Follow Up with DEVONTE NOBLE, CAROLINA Salazar When: Comments: 3 mos for cysto/bt ck Where: [address] [place] [address] [place] [address] Medications What How Much When Instructions Unchanged [...] Tablets By Mouth 2 times a day Contactprescribing physician if questions or concerns Unchanged doxazosin (doxazosin 1 mg Tab) 1 Tablets Contact prescribing physician if questions or concerns Unchanged fluticasone/ umeclidinium/ vilanterol (Trelegy Ellipta 100 mcg-62.5 mcg-25 mcg inhalationpowder) 1 Puffs Inhalation Every day Contact prescribing physician if questions or concerns Unchanged hydrochlorothiazide-lisinopril (hydrochlorothiazide-lisinopril 12.5 mg-20 mg Tab) 1 Tablets Contact prescribing physician if questions or concerns Unchanged liothyronine (liothyronine 25 mcg Tab) Contact prescribing physician if questions or concerns Unchanged lisinopril (lisinopril 20 mg Tab) 1 Tablets Contact prescribing physician if questions orconcerns Unchanged pantoprazole (Pantoprazole [address] Tab) 1 Tablets By Mouth Every day Contact prescribingphysician if questions or concerns Unchanged sildenafil (sildenafil 100 mg Tab) 1 Tablets By Mouth As Directed Take 1 tablet 1 hr prior to sexual activity as needed. Don't exceed 1 tab (100 mg) in a 24 hr period. Contact prescribing physician if questions or concerns Medications and Immunizations Administered Given lidocaine Top 2% Gel w/Appl 6 mL, 6 mL, Topical. For: Personal history of bladder cancer Allergies codeine (hives/rashes) Problems Ongoing - Any [...] choosing us for your care. Education Materials Cancer Screening for Males A cancer screening is a test or exam that checks for cancer. Work with your health care provider tocreate a cancer (more content not included)...Normal [facility] HospitalUroVysion Fish and Urine Cyto ([facility])on 02-26-2025 UVUC Method of ExtractionBladder [facility] TownshipComment on above:Performed By: #### [id number] #### [facility] [address], [place] [address]CRNA Number of Nmri7Dtwaepl Interpretation [facility] HospitalComment on above:Performed By: #### [id number] #### [facility] [address], [place] [address]DSNR SpecimenBladder [facility] Comment on above:Performed By: #### [id number] #### [facility] [address], [place] [address]KWMV Type of ServiceTechnical OnlyDiley Ridge Medical CenterComment on above:Performed By: #### [id number] #### [facility] [address] [place], [place] [address]Tjfoivt Office/Clinic Noteon [id number] Office/Clinic NoteUrology Office/Clinic Note Chief Complaint cystoscopy HPI Staff Pt is a 75 year old male here for cysto with fish/cytology History of Present Illness Tests reviewed: reviewed op note, FISH/cytol I have reviewed the previous health record information and history for this patient from Dr. Cal Woody PA-C. I have reviewed and verified the staff [...] & Measurements T: 37 ???C(Temporal Artery) HR: 72(Peripheral) RR: 18 BP: 131/78 HT: 71 in HT: 180 cm WT: 189.597 lb WT: 86 kg BMI: 26.54 General Appearance: alert, no distress, well nourished, well developed male. Procedure Operative Information Anesthesia Type: Local Procedure: Local Cystoscopy Complications: None Surgical risks, benefits, details of the procedure have been explained to the patient. Full informed consent has been obtained. Intraoperative Information Prepped: Patient is brought back to the endoscopy suite. Patient is placed in supine position. Patient prepped in the usual fashion with Betadine solution. 2% Xylocaine Jelly is placed per Urethra. After waiting several minutes, the Cystoscope is introduced. The Urethra is: Normal The Prostatic Urethra is: absent The Bladder: No tumors or stones, only one small area of necrotic tissue remaining on L wall. Minimal flat red irritation remaining. Trabeculated: Mild (1) The Ureteral orifices: Show efflux of clear urine Specimens Removed: Bladder wash sent for FISH and Cytology test Removal: Cystoscope is removed. The patient tolerated it well. Postoperative Information Patient is discharged home with antibiotic coverage. Follow up arranged. Assessment/Plan Last seen by SHERI for BCG admin. 1. Personal history of bladder cancer (Z85.51: Personal history of malignant neoplasm of bladder) Original TURBT 10/29/21 - Non-invasive, low grade TCC. TURBT 02/17/22 - Path was sent to [facility] for second opinion, 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 Mitomycin 03/26/22 and 04/20/22. TURBT 01/14/23 - Neg. Chronic inflammation and extensive necrosis. 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 [1] BCG #6 complete 09/13/[address] [facility] AP/Chest scan 09/01/24 [facility]. [2] S/p Cysto 10/24/24 - No evidence of papillary bladder tumors. No lesions concerning for bladder cancer. Multiple prior resection sites with necrotic debris adhered. Atypical cytol, neg FISH. BCG #3 completed 01/15/25. Pt had IO cysto to check for bladder tumor recurrence without complications today. Pt took prophylactic abx prior to procedure. Will send bladder wash specimen for FISH/cytol and call pt if positive. Follow up in 3 mos for surveillance cysto or sooner if needed. Pt understands and agrees with plan. 2. History of prostate cancer (Z85.46: Personal history of malignant neoplasm of prostate) PSA: 07/05/20 - 0.05 09/12/21 - 0.05 09/21/22 - <0.13 09/21/23 - <0.13 ([facility]) 08/16/24 - 0.03 ([facility]) S/p radical prostatectomy 08/2014. [3] 3. History of kidney stones (Z87.442: Personal history of urinary calculi) Has family hx of stones (sister and son). [4] 4. Impotence (N52.31: Erectile dysfunction following radical prostatectomy) Sildenafil 100 mg PRN and 4P injection therapy. [5] Follow-up With When Contact Information DEVONTE NOBLE, Lionel Burgos, URL [address] [place] [address] [place] [address] Additional Instructions: 3 mos for cysto/bt ck Patient Education Cancer Screening for Males I, Lilo Zhou, personally scribed for Dr. Whitney on 02/26/2025 08:49:11. . Documentation recorded by the scribe, Lilo Zhou, accurately reflects the services(s) I performed and decisions made by me. Authenticated by Dr. Whitney on 02/26/2025 08:50:14. Problem List/Past Medical History Ongoing Acute gouty arthritis Bladder cancer BMI 23.0-23.9, adult Change in bowel habits Chronic GERD Chronic obstructive pulmonary disease GERD (gastroesophageal reflux disease) History of kidney stones History of prostate cancer HTN (hypertension) Impotence Iron deficiency anemia Personal history of bladder cancer Personal history of colonic polyps Spondylolisthesis of cervi (more content not included)...[facility] Ridge Medical CenterComment on above:Result Comment: Electronically Signed By: Lionel WHITNEY MD\.br\Date and Time Signed: 02/26/25 08:50 EDT\.br\Electronically Co-Signed By: Lilo Zhoubr\Date and Time Co-Signed: 02/26/25 08:49 EDT Reminderson [id number] From: Loretta Simons To: EU - Leandro Whitney; Sent: 09/01/2024 15:18:36 EDT Show up: 02/19/2025 15:18:00 EDT Subject: cysto/fish/cytol Due Date/Time: 03/19/2025 15:18:00 EDT Reminder/Recall Patient is due in Apr 2025 cysto/fish/cytol (6 mo) Patient sched for cysto 02/26/25 in [place] office.LGNormSelect Medical Specialty Hospital - CincinnatiUrology Office/Clinic Noteon [phone] Office/Clinic NoteUrology Office/Clinic Note Chief Complaint BCG HPI Staff [...] TURBT 02/17/22 - Path was sent to [facility] for second opinion, 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 Mitomycin 03/26/22 and 04/20/22. TURBT 01/14/23 - Neg. Chronic inflammation and extensive necrosis. 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 [1] Saw Dr. Norberto Leedy 07/19/24 at [facility], recommended BCG #6 to start 2wks later. BCG #6 complete 09/13/24 [facility]. Neg CT AP/Chest scan 09/01/24 [facility]. Cysto 10/24/24 shows no bladder lesions. Cyto/FISH [...] turning every fifteen minutes 1/4 turn to allowcoating of the bladder surface. The patient should call the office or present to the Emergency Department for development of fever, chills, or flu- like symptoms. Symptoms such as urinary frequency, urgency, and other bladder irritation symptoms are expected. Follow-up With When Contact Information [facility] Additional Instructions: For procedure as scheduled. [...] (01/14/2023), TURBT - Transurethral resection of bladder tumor(02/17/2022), TURBT - Transurethral resection of bladder tumor [...] 1 mg Tab, 1 mg= 1 tab(s) hydrochlorothiazide-lisinopril 12.5 mg-20 mg Tab, 1 tab(s) liothyronine [...] Father. Immunizations Vaccine Da (more content not included)...[facility] Comment on above:Result Comment: Electronically Signed By: LAUREN WOODY PA-C\Date and Time Signed: 01/15/2509:25 EDTReminderson [id number] Reminders From: Loretta Simons To: EU - Recalls Whitney; Sent: 08/17/2024 11:54:59 EST Show up: 11/19/2024 11:54:00 EDT Subject: cysto/fish/cytol Due Date/Time: 12/11/2024 11:54:00 EDT Reminder/Recall Patient is due in January 2025 for 3 month cysto/fish./cytol, bt ck Patient sched 02/26/25 in [place] office.Diley Ridge Medical CenterCB W Auto Differential panel (Bld)on [id number] (Bld) [#/Vol]NINFCleveland ClinicBasophils/100 WBC (Bld)0.2 %[facility] Medical CenterDifferential cell count method Nom (Bld)AutoCleveland ClinicEosinophils (Bld) [#/Vol]0.09 10*3/uLNINFCleveland ClinicEosinophils/100 WBC (Bld)1.1 %[facility] Medical CenterErythrocyte distribution width (RBC) [Ratio]14.1 %11.5 - 15.0 %[facility] Medical CenterHematocrit (Bld) [Volume fraction]38 %Low39.0 - 51.0 %[facility] Medical CenterHemoglobin (Bld) [Mass/Vol]12.7 g/dLLow13.0 - 17.0 g/dLUniversity Hospitals Parma Medical CenterImmature granulocytes (Bld) [#/Vol]0.05 10*3/uLNINFUniversity Hospitals Parma Medical CenterImmature granulocytes/100 WBC (Bld)0.6 %[facility] Medical CenterInterpretation and review of laboratory resultsAbnoalCDoctors Hospital Lymphocytes (Bld) [#/Vol]2.14 10*3/uLUniversity Hospitals Parma Medical CenterLymphocytes/100 WBC (Bld) 25.4 %[facility] HospitalH (RBC) [Entitic mass]30.5 pg26.0 - 34.0 pgCTrinity Health SystemHC (RBC) [Mass/Vol]33.4 g/dL30.5 - 36.0 g/dLJoint Township District Memorial HospitalV (RBC) [Entitic vol]91.3 fL80.0 - 100.0 fLCDoctors HospitalMonocytes (Bld) [#/Vol]0.68 10*3/uLNIThe Bellevue HospitalMonocytes/100 WBC (Bld)8.1 %[facility] Neutrophils (Bld) [#/Vol]5.44 10*3/uLUniversity Hospitals Parma Medical CenterNeutrophils/100 WBC (Bld) 64.6 %[facility] Medical CenterNucleated RBC (Bld) [#/Vol]NINFClevelOhioHealth Dublin Methodist HospitalNucleated RBC/100 WBC (Bld) [Ratio]0 %/100 WBCUniversity Hospitals Parma Medical CenterPlatelet mean volume (Bld) [Entitic vol]9 fL9.0 - 12.7 fLCDoctors HospitalPlatelets (Bld) [#/Vol]257 10*3/uL [facility] Medical CenterRBC (Bld) [#/Vol]4.16 10*6/uLLow4.20 - 6.00 m/uLUniversity Hospitals Parma Medical Center WBC (Bld) [#/Vol]8.42 10*3/uLUC Medical Center ClinicBasophils (Bld) [#/Vol]10*3/uLNoal<0.11CTrinity Health System on above:Order Comment: Specimen Type: BLOOD SPECIMENOrdering Facility: [facility] Address:[address] [place], [place] [address]Performed By: #### [id number]- 8 ####[facility] LABCLIA [id number] [place], [place] [address]Bsisbmkst/100 WBC (Bld)0.2 %NormalUniversity Hospitals Ahuja Medical Center on above:Order Comment: Specimen Type: BLOOD SPECIMENOrdering Facility: [facility] Address:[address] [place], [place] [address]Performed By: #### [id number] ####[facility] LABCLIA [id number] [place], [place] [address]Aamhpnjqoqyk cell count method Nom (Bld)AutoNormalCTrinity Health System on above:Order Comment: Specimen Type: BLOOD SPECIMENOrdering Facility: [facility] Address:[address] [place], [place] [address]Performed By: #### 88184-8 ####[facility] LABCLIA [id number] [place], [place] [address]Drowlcpjdua (Bld) [#/Vol]0.09 10*3/uLNormal<0.46[facility] on above:Order Comment: Specimen Type: BLOOD SPECIMENOrdering Facility: [facility] Address:[address] [place], [place] [address]Performed By: #### 38621-5 ####[facility] LABCLIA [id number] [place], [place] [address]Osolobvdfke/100 WBC (Bld)1.1 %NormalUniversity Hospitals Ahuja Medical Center on above:Order Comment: Specimen Type: BLOOD SPECIMENOrdering Facility: [facility] Address:[address] [place], [place] [address]Performed By: #### 11112-3 ####[facility] LABCLIA [id number] [place], [place] [address]Xcaangrpmwp distribution width (RBC) [Ratio]14.1 %Normal 11.5-15.0[facility] on above:Order Comment: Specimen Type: BLOOD SPECIMENOrdering Facility: [facility] Address:[address] [place], [place] [address]Performed By: #### 13047-9 ####[facility] LABIA [id number] [place] [address] Hematocrit (Bld) [Volume fraction]38.0 %Low39.0-51.0[facility] Comment on above:Order Comment: Specimen Type: BLOOD SPECIMENOrdering Facility: [facility] Address:[address] [place] [address] Performed By: #### 32360-5 ####[facility] LABIA [id number] [place], [place] [address]Auuvycskfw (Bld) [Mass/Vol]12.7 g/dLLow13.0-17.0[facility] on above:Order Comment: Specimen Type: BLOOD SPECIMENOrdering Facility: [facility] Address:[address] [place], [place] [address]Performed By: #### 28165-6 ####[facility] LABIA [id number] [place], [place] [address]Tzcdhydc granulocytes (Bld) [#/Vol]0.05 10*3/uLNormal <0.10[facility] on above:Order Comment: Specimen Type: BLOOD SPECIMENOrdering Facility: [facility] Address:[address] [place], [place] [address]Performed By: #### 91310-5 ####[facility] LABIA [id number] [place], [place] [address]Uthjvtuf granulocytes/100 WBC (Bld)0.6 %NormalUniversity Hospitals Ahuja Medical Center on above: Order Comment: Specimen Type: BLOOD SPECIMENOrdering Facility: [facility] Address:[address] [place], [place] [address]Performed By: #### 65264- 8 ####[facility] LABCLIA [id number] [place], [place] [address]Exldvtxvvag (Bld) [#/Vol]2.14 10*3/uLNormal1.00-4.00 [facility] on above:Order Comment: Specimen Type: BLOOD SPECIMENOrdering Facility: [facility] Address:[address] [place], [place] [address]Performed By: #### 10764-9 ####[facility] LABCLIA [id number] [place], [place] [address]Uapbvcugnrs/100 WBC (Bld)25.4 %NormalUniversity Hospitals Ahuja Medical Center on above:Order Comment: Specimen Type: BLOOD SPECIMENOrdering Facility: [facility] Address:[address] [place], [place] [address]Performed By: #### 02789-9 ####[facility] LABCLIA [id number] [place], [place] [address]GXX (RBC) [Entitic mass]30.5 gbHptioh33.0-34.0[facility] on above:Order Comment: Specimen Type: BLOOD SPECIMENOrdering Facility: [facility] Address:[address] [place], [place] [address]Performed By: #### 05428-0 ####[facility] LABCLIA [id number] [place], [place] [address]OSCB (RBC) [Mass/Vol]33.4 g/cYBhwefr92.5-36.0[facility] on above: Order Comment: Specimen Type: BLOOD SPECIMENOrdering Facility: [facility] Address:[address] [place], [place] [address]Performed By: #### 46660- 8 ####[facility] LABCLIA [id number] [place], [place] [address]SKD (RBC) [Entitic vol]91.3 iDMnkhxr57.0-100.0[facility] on above:Order Comment: Specimen Type: BLOOD SPECIMENOrdering Facility: [facility] Address:[address] [place], [place] [address]Performed By: #### 13130-6 ####[facility] LABCLIA [id number] [place], [place] [address]Gtuxmdmib (Bld) [#/Vol]0.68 10*3/uLNormal<0.87[facility] on above:Order Comment: Specimen Type: BLOOD SPECIMENOrdering Facility: [facility] Address:[address] [place], [place] [address]Performed By: #### 82814- 8 ####[facility] LABCLIA [id number] [place], [place] [address]Hehmevthw/100 WBC (Bld)8.1 %NormalUniversity Hospitals Ahuja Medical Center on above:Order Comment: Specimen Type: BLOOD SPECIMENOrdering Facility: [facility] Address:[address] [place], [place] [address]Performed By: #### 11730-6 ####[facility] LABIA [id number] [place], [place] [address]Dftkdppcymc (Bld) [#/Vol]5.44 10*3/uLNormal1.45-7.50[facility] on above:Order Comment: Specimen Type: BLOOD SPECIMENOrdering Facility: [facility] Address:[address] [place], [place] [address]Performed By: #### 06765-5 ####[facility] LABCLIA [id number] [place], [place] [address]Eryekwkufdv/100 WBC (Bld)64.6 %NormalUniversity Hospitals Ahuja Medical Center on above:Order Comment: Specimen Type: BLOOD SPECIMENOrdering Facility: [facility] Address:[address] [place], [place] [address]Performed By: #### 85090-1 ####[facility] LABIA [id number] [place], [place] [address]Llxlzgqco RBC (Bld) [#/Vol] 10*3/uLNormal<0.01[facility] on above:Order Comment: Specimen Type: BLOOD SPECIMENOrdering Facility: [facility] Address:[address] [place], [place] [address]Performed By: #### 51792-8 ####[facility] LABIA [id number] [place], [place] [address]Ivfqqkqjg RBC/100 WBC (Bld) [Ratio]0.0 /100 WBCNormal [facility] on above:Order Comment: Specimen Type: BLOOD SPECIMENOrdering Facility: [facility] Address:[address] [place], [place] [address]Performed By: #### 92888-7 ####[facility] LABCLIA [id number] [place], [place] [address]Fqorivmg mean volume (Bld) [Entitic vol]9.0 fLNormal9.0-12.7CTrinity Health System on above:Order Comment: Specimen Type: BLOOD SPECIMENOrdering Facility: [facility] Address:[address] [place] [address] Performed By: #### 07218-4 ####[facility] LABCLIA [id number] [place], [place] [address]Grrvakqsh (Bld) [#/Vol]257 10*3/rQFtvivy444-386IibatxurpUniversity Hospitals Ahuja Medical Center on above:Order Comment: Specimen Type: BLOOD SPECIMENOrdering Facility: [facility] Address:[address] [place], [place] [address]Performed By: #### 64684-4 ####[facility] LABCLIA [id number] [place], [place] [address]AFD (Bld) [#/Vol]4.16 10*6/uLLow4.20-6.00[facility] on above:Order Comment: Specimen Type: BLOOD SPECIMENOrdering Facility: [facility] Address:[address] [place], [place] [address]Performed By: #### 45039-8 ####[facility] LABCLIA [id number] [place], [place] [address]ZOA (Bld) [#/Vol]8.42 10*3/uL Normal3.70-11.00[facility] on above:Order Comment: Specimen Type: BLOOD SPECIMENOrdering Facility: [facility] Address:[address] [place], [place] [address]Performed By: #### 54892-2 ####[facility] LABIA [id number] [place], [place] [address]QWJGKLam [id number] (SP) Office ([place]) MARY DIAZ ([id number]) 1950 [facility] Date Time Provider Department 12/13/24 1:00 PM NORBERTO ANDRADE HEMFELICIAON During your visit today, we recorded the following information about you: Temperature Pulse Respiration Blood pressure 97.7 degrees 74/minute 18/minute 135/80 Weight 84.4 kg Norberto Andrade MD 12/13/2024 2:20 PM Signed PATIENT NAME: Mary Diaz [facility] NO.: [id number] ATTENDING PHYSICIAN: Norberto Andrade MD DATE OF SERVICE: 12/13/[address] Lionel Whitney [address] [facility] [address] thank you for referring Mary Diaz for [...] atleast 1 fragment without obvious stromal invasion (dental specialist). 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 Urology recommended induction [...] tablet by mouth at bedtime as needed. nilpnokpuiv-uaxoqmptv-xkplutqu (TRELEGY ELLIPTA) 100-62.5-25 mcg inhalation powder = [...] Take 100 mg by mouth as needed. dramsqzoteo-zuaqghuyg-kmrxprmi (TRELEGY ELLIPTA) 100-62.5-25 mcg inhalation powder Inhale [...] SURGICAL HISTORY OF Cystourethrosco (more content not included)...NormalPomerene Hospital metabolic 2000 panelOrdered By: Jules Almaraz on 00-15-0291Cfnuown [Mass/Vol]4.5 g/dL3.9 - 4.9 g/dLMontezuma ClinicALP [Catalytic activity/Vol]56 U/L38 - 113 U/LCleveland ClinicALT [Catalytic activity/Vol]16 U/L10 - 54 U/L [facility]uma ClinicAnion gap [Moles/Vol]10 mmol/L8 - 15 mmol/LCleveland ClinicAST [Catalytic activity/Vol]16 U/L14 - 40 U/LCleveland ClinicBilirubin [Mass/Vol]0.4 mg/dL0.2 - 1.3 mg/dLMontezuma ClinicCalcium [Mass/Vol]10.2 mg/dL8.5 - 10.2 mg/dLMontezuma ClinicChloride [Moles/Vol]97 mmol/LLow98 - 107 mmol/LCleveland ClinicCO2 [Moles/Vol]26 mmol/L22 - 30 mmol/LCleveland ClinicCreatinine [Mass/Vol]1.27 mg/dLHigh0.73 - 1.22 mg/dLMontezuma ClinicGFR/1.73 sq M.predicted among non-blacks MDRD (S/P/Bld) [Vol rate/Area]60 mL/min/{1.73_m2}- PINF [facility] on above:Estimated Glomerular Filtration Rate (eGFR) is calculated using the 2020 CKD-EPI creatinine equation. This equation utilizes serum creatinine, sex, and age as parameters. The creatinine assay has traceable calibration to isotope dilution-mass spectrometry. Refer to KDIGO guidelines for clinical interpretation. In patients with unstable renal function, e.g. those with acute kidney injury, the eGFRmay not accurately reflect actual GFR.Glucose [Mass/Vol]93 mg/dL74 - 99 mg/dLCleveland Clinic Children's Hospital [facility] on above:The [place] Diabetes Association (ADA) provides guidance for cutoff values for fasting glucose andrandom glucose. The ADA defines fasting as no [...] Standards of Medical Care in Diabetes 2016, [place] [employer]. Diabetes Care. 2016.39(Suppl 1). Interpretation and review of laboratory resultsAbnormalCleveland ClinicPotassium [Moles/Vol]4 mmol/L3.7 - 5.1 mmol/LClancaster municipal hospital ClinicProtein [Mass/Vol]7 g/dL6.3 - 8.0 g/dLMontezuma ClinicSodium [Moles/Vol]133 mmol/INoh900 - 144 mmol/L [facility] Medical CenterUrea nitrogen [Mass/Vol]16 mg/dL9 - 24 mg/dLSumma Health Akron CampusComprehensive metabolic 2000 panelon 80-24-4366Gcnrjqh [Mass/Vol]4.5 g/dLNormal3.9-4.9CTrinity Health System on above:Order Comment: Specimen Type: BLOOD SPECIMENOrdering Facility: [facility] Address:[address] [place], [place] [address]Performed By: #### 35530- 8 ####[facility] LABCLIA [id number] [place], [place] [address]PWU [Catalytic activity/Vol]56 U/YYvqxir63-512ErgqxytzcUniversity Hospitals Ahuja Medical Center on above:Order Comment: Specimen Type: BLOOD SPECIMENOrdering Facility: [facility] Address:[address] [place], [place] [address]Performed By: #### 00022-0 ####[facility] LABCLIA [id number] [place], [place] [address]QAZ [Catalytic activity/Vol]16 U/PMvimxo01-00OadnaodthUniversity Hospitals Ahuja Medical Center on above:Order Comment: Specimen Type: BLOOD SPECIMENOrdering Facility: [facility] Address:[address] [place], [place] [address]Performed By: #### 77791- 8 ####[facility] LABCLIA [id number] [place], [place] [address]Kvpsv gap [Moles/Vol]10 mmol/LNormal8-15[facility] on above:Order Comment: Specimen Type: BLOOD SPECIMENOrdering Facility: [facility] Address:[address] [place], [place] [address]Performed By: #### 93356-5 ####[facility] LABCLIA [id number] [facility] [place], [place] [address]SMX [Catalytic activity/Vol]16 U/USgmbki96-79KlqtsorucUniversity Hospitals Ahuja Medical Center on above:Order Comment: Specimen Type: BLOOD SPECIMENOrdering Facility: [facility] Address:[address] [place], [place] [address]Performed By: #### 23439-4 ####[facility] LABCLIA [id number] [place] [address] Bilirubin [Mass/Vol]0.4 mg/dLNormal0.2-1.3CTrinity Health System on above:Order Comment: Specimen Type: BLOOD SPECIMENOrdering Facility: [facility] Address:[address] [place], [place] [address]Performed By: #### 48683-5 ####[facility] LABCLIA [id number] [place], [place] [address]Gpsnlzr [Mass/Vol]10.2 mg/dLNormal8.5-10.2CTrinity Health System on above:Order Comment: Specimen Type: BLOOD SPECIMENOrdering Facility: [facility] Address:[address] [place], [place] [address]Performed By: #### 77561-2 ####[facility] LABCLIA [id number] [place], [place] [address]Dzrohfkg [Moles/Vol]97 mmol/FWnr45-870RjkxeqwvlUniversity Hospitals Ahuja Medical Center on above:Order Comment: Specimen Type: BLOOD SPECIMENOrdering Facility: [facility] Address:[address] [place], [place] [address]Performed By: #### 33305- 8 ####[facility] LABCLIA [id number] [place], [place] [address]LW2 [Moles/Vol]26 mmol/VKmwqig15-06JpcsnmmitUniversity Hospitals Ahuja Medical Center on above:Order Comment: Specimen Type: BLOOD SPECIMENOrdering Facility: [facility] Address:[address] [place], [place] [address]Performed By: #### 41827-6 ####[facility] LABCLIA [id number] [place], [place] [address]Cmutsssowi [Mass/Vol]1.27 mg/dL High0.73-1.22[facility] on above:Order Comment: Specimen Type: BLOOD SPECIMENOrdering Facility: [facility] Address:[address] [place], [place] [address]Performed By: #### 02857-4 ####[facility] LABCLIA [id number] [place] [address] Creatinine and Glomerular filtration rate.predicted panel (S/P/Bld)60 mL/min/1.73m???Normal>=60[facility] on above:Order Comment: Specimen Type: BLOOD SPECIMENOrdering Facility: [facility] Address:[address] [place], [place] [address]Result Comment: Estimated Glomerular Filtration Rate (eGFR) is calculated using the 2020 CKD-EPI cre atinine equation. This equation utilizes serum creatinine, sex, and age as parameters. The creatinine assay has traceable calibration to isotope dilution- mass spectrometry. Refer to KDIGO guidelines for clinical interpretation. In patients with unstable renal function, e.g. those with acute kidney injury, the eGFR may not accurately reflect actual GFR.Performed By: #### 15644-2 ####[facility] LABCLIA [id number] [place], [place] [address]Qwlacpz [Mass/Vol]93 mg/vVXcqehl29-75AtmlqwcbhUniversity Hospitals Ahuja Medical Center on above:Order Comment: Specimen Type: BLOOD SPECIMENOrdering Facility: [facility] Address:[address] [place], [place] [address]Result Comment: The [place] Diabetes Association (ADA) provides guidance for cutoff values for fasting glucose and random glucose. The ADA defines fasting as no caloric intake for at least 8 hours. Fasting plasma glucose results between 100 to 125 mg/dL indicate increased risk for diabetes (prediab etes). Fasting plasma glucose results greater than or [...] Standards of Medical Care in Diabetes 2016, [place] Diabetes Association. Diabetes Care. 2016.39(Suppl 1).Performed By: #### 01614-8 ####[facility] LABCLIA [id number] [place], [place] [address]Mprvkbjbr [Moles/Vol]4.0 mmol/LNormal3.7-5.1CTrinity Health System on above:Order Comment: Specimen Type: BLOOD SPECIMENOrdering Facility: [facility] Address:[address] [place], [place] [address]Performed By: #### 65130-3 ####[facility] LABCLIA [id number] [place], [place] [address]Niopike [Mass/Vol]7.0 g/dLNormal6.3-8.0[facility] on above:Order Comment: Specimen Type: BLOOD SPECIMENOrdering Facility: [facility] Address:[address] [place], [place] [address]Performed By: #### 45500- 8 ####[facility] LABCLIA [id number] [place], [place] [address]Twwzms [Moles/Vol]133 mmol/ROrr470-887IkkemtraiUniversity Hospitals Ahuja Medical Center on above:Order Comment: Specimen Type: BLOOD SPECIMENOrdering Facility: [facility] Address:[address] [place], [place] [address]Performed By: #### 59880-9 ####[facility] LABCLIA [id number] [place], [place] [address]Hxxw nitrogen [Mass/Vol]16 mg/dLNormal9-24[facility] on above:Order Comment: Specimen Type: BLOOD SPECIMENOrdering Facility: [facility] Address:[address] [place], [place] [address]Performed By: #### 14671-2 ####[facility] LABCLIA [id number] [place], [place] [address]Eqnzkhnq SerPl-mCncon 78-67-1876Eobympnp [Mass/Vol]114.0 ng/pJYbetxe65.3-565.7CTrinity Health System on above:Order Comment: Specimen Type: BLOOD SPECIMENOrdering Facility: [facility] Address:[address] [place], [place] [address]Performed By: #### 63400-5, 9, 2275-09, 2284-01 ####[facility] LABCLIA [id number] [place] [address] [place] STATES OF AMERICAFolate SerPl-mCncon 54-62-9098Asuval [Mass/Vol]ng/mLNormal>4.7CTrinity Health System on above:Order Comment: Specimen Type: BLOOD SPECIMENOrdering Facility: [facility] Address:[address] [place], [place] [address]Result Comment: A result of > 20 ng/mL is not necessarily indicative of a pathologic or treatable condition: it reflects a limitation of the test methodology. Assay reference range: 4.8 to 24.2 ng/mL. Suitable for detection of folate deficiency. Reference: Folate III (Folate III) [package insert V 1.0 Vietnamese]. [facility], [place], [place]: April 2015.Performed By: #### 32259-5, 9, 2275-09, 2284-01 ####[facility] LABCLIA [id number] [place] [address] [place] OF AMERICAIron and Iron binding capacity panelon 34-93-3059Gyze [Mass/Vol]70 ug/sHMmjwpz64-880XztduhgbcParkview Health Comment on above:Order Comment: Specimen Type: BLOOD SPECIMENOrdering Facility: [facility] Address:[address] [place] [address] Performed By: #### 38606-2, 2132-02, 2275-09, 2284-01 ####[facility] LABCLIA [id number] [place] [address] [place] AMERICAIron binding capacity [Mass/Vol]338 ug/zPRmmtom913-078UxfojzujpUniversity Hospitals Ahuja Medical Center on above:Order Comment: Specimen Type: BLOOD SPECIMENOrdering Facility: [facility] Address:[address] [place], [place] [address]Performed By: #### 08253-2, 2132-02, 2275-09, 2284-01 ####[facility] LABIA [id number] [address] STATES OF AMERICAIron/TIBC [Molar ratio]20.7 % Vspdnc90.0-57.0[facility] on above:Order Comment: Specimen Type: BLOOD SPECIMENOrdering Facility: [facility] Address:[address] [place], [place] [address]Performed By: #### 80693-2, 2132-02, 2275-09, 2284-01 ####[facility] LABIA [id number] [place] [id number] [facility] MEDINA HOSPITALVit B12 SerPl-[facility] 46-19-4206Jwjududrj (Vitamin B12) [Mass/Vol]484 pg/yLTenkpr174-0252VvdeiifaoTrinity Health System on above:Order Comment: Specimen Type: BLOOD SPECIMENOrdering Facility: [facility] Address:[address] [place], [place] [address]Performed By: #### 72092-1, 2132-02, 2275-09, 2284-01 ####[facility] LABIA [id number] [place] [id number] UNITED STATES OF AMERICAOffice Visiton 39-97-5638Vujqnz- up [id number] Mary Diaz 1950 M Date Provider Department Center 12/11/2024 ALEXANDREA WAGNER [facility] Family History Problem Relation Age of Onset Cerebral aneurysm Mother Dementia Father Hypertension Sister Family Status - Relation Status Age at Mother Father Sister Alive Brother Level of Service:[address] [place] OFFICE/OP CONSLTJ NEW/EST PT MOD MDM 40 MINUTESNoal [facility] CenterAmbulatory Visit Summaryon 12-05-2024 Ambulatory Visit SummaryAmbulatory Visit Summary EMILY MARY Rogers :1950 Visit Date:12/05/2024 Ambulatory Visit Instructions Your Diagnosis Bladder cancer Your Care Team Attending Physician - LAUREN WOODY PA-C Primary Care Physician - Deandre Monterroso MD This Is Your Medications List acetaminophen-hydrocodone (acetaminophen-hydrocodone 325 mg-5 mg oral tablet) colchicine (Colcrys 0.6 mg oral tablet) diclofenac (diclofenac sodium 75 mg Oral EC Tab) doxazosin (doxazosin 1 mg Tab) fluticasone/umeclidinium/vilanterol (Trelegy Ellipta 100 mcg-62.5 mcg-25 mcg inhalation powder) hydrochlorothiazide-lisinopril (hydrochlorothiazide-lisinopril 12.5 mg-20 mg Tab) liothyronine (liothyronine 25 mcg Tab) lisinopril (lisinopril 20 mg Tab) pantoprazole (Pantoprazole [address] Tab) sildenafil (sildenafil 100 mg Tab) Procedures Performed TURBT - Transurethral resection of bladder tumor (07/06/2024), Cystoscopy (04/27/2023), TURBT - Transurethral resection of bladder tumor (01/14/2023), TURBT - Transurethral resection of bladder tumor(02/17/2022), TURBT - Transurethral resection of bladder tumor [...] Appointments Wednesday 10:00 AM EDT With: LAUREN WOODY PA-C Where: [facility] [address] [place] [address]- Wednesday 8:30 AM EDT With: Lionel WHITNEY MD Where: [facility] [address] [place] [address]- You Need to Schedule the Following Appointments Follow Up with LAUREN WOODY PA-C, URL When: In 1 week Where: [address] [place] [address] Medications What How Much When [...] vilanterol (Trelegy Ellipta 100 mcg-62.5 mcg-25 mcg inhalationpowder) 1 Puffs Inhalation Every day Unchanged hydrochlorothiazide-lisinopril (hydrochlorothiazide-lisinopril 12.5 mg-20 mg Tab) 1 Tablets Unchanged [...] ??? 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 Mitomycin 03/26/22 and 04/20/22. TURBT 01/14/23 - Neg. Chronic inflammation and extensive necrosis. 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 [1] Saw Dr. Norberto Leedy 07/19/24 at [facility], recommended BCG #6 to start 2wks later. [...] turning every fifteen minutes 1/4 turn to allowcoating of the bladder surface. The patient should call the office or present to the Emergency Department for development of fever, chills, or flu- like symptoms. Symptoms such as urinary frequency, urgency, and other bladder irritation symptoms are expected. Ordered: BCG, 50 mg, IntraVesical, Once, Stop date 12/05/24 9:56:00 EDT, Routine, Start date 12/05/24 9:56:00 EDT, 12/05/24 9:56:00 EDT Urnls Dip Stick Auto w/o Microscopy POC 51717 Orders: BCG, 50 mg, IntraVesical, Once, Stop date 12/05/24 10:26:00 EDT, Routine, Start date 12/05/24 10:26:00 EDT, 12/05/24 10:26:00 EDT Follow-up With When Contact Information AMBREEN HELMS, LAUREN Higginbotham, URL In 1 week [address] [place] [address] Additional Instructions: Patient Education Bladder Cancer Problem [...] (01/14/2023), TURBT - Transurethral resection of bladder tumor(02/17/2022), TURBT - Transurethral resection of bladder tumor [...] 1 mg Tab, 1 mg= 1 tab(s) hydrochlorothiazide-lisinopril 12.5 mg-20 mg Tab, 1 tab(s) liothyronine [...] 1-2 times per we (more content not included)...[facility] CenterComment on above:Result Comment: Electronically Signed By: LAUREN WOODY PA-C\.br\Date and Time Signed: 12/05/2509:33 EDTUrology Office/Clinic Noteon [id number] Office/Clinic NoteUrology Office/Clinic Note Chief Complaint BCG #1 of [...] 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 Mitomycin 03/26/22 and 04/20/22. TURBT 01/14/23 - Neg. Chronic inflammation and extensive necrosis. 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 [1] Saw Dr. Norberto Leedy 07/19/24 at [facility], recommended BCG #6 to start 2wks later. [...] Department for development of fever, chills, or flu- like symptoms. Symptoms such as urinary frequency, urgency, and other bladder irritation symptoms are expected. Ordered: BCG, 50 mg, IntraVesical, Once, Stop date 11/29/24 15:28:00 EDT, Routine, Start date 11/29/24 15:28:00 EDT, 11/29/24 15:28:00 EDT Follow-up With When Contact Information LAUREN WOODY PA-C, URL In 1 week [address] [place] [address] Additional Instructions: Patient Education Bladder Cancer Problem [...] (01/14/2023), TURBT - Transurethral resection of bladder tumor(02/17/2022), TURBT - Transurethral resection of bladder tumor [...] 1 mg Tab, 1 mg= 1 tab(s) hydrochlorothiazide-lisinopril 12.5 mg-20 mg Tab, 1 tab(s) liothyronine 25 mcg Tab lisinopril 20 mg Tab, 20 mg= 1 tab(s) Pantoprazole [address] Tab, 40 mg= 1 tab(s), Oral, Daily sildenafil 100 mg Tab, 100 mg= 1 tab(s), Oral, As Directed, 3 refills Tanisha BCG Live (for intravesical use), 50 [...] Never Smokeless Tobacco Us (more content not included)...[facility] CenterComment on above:Result Comment: Electronically Signed By: LAUREN WOODY PA-C\.br\Date and Time Signed: 11/29/2514:30 EDTAmbulatory Visit Summaryon 11-28-2024 Ambulatory Visit SummaryAmbulatory Visit Summary MARY DIAZ :1950 Visit Date:11/28/2024 Ambulatory Visit Instructions Your Diagnosis Bladder cancer Your Care Team Attending Physician - LAUREN WOODY PA-C Primary Care Physician - Deandre Monterroso MD This Is Your Medications List acetaminophen-hydrocodone (acetaminophen-hydrocodone 325 mg-5 mg oral tablet) colchicine (Colcrys 0.6 mg oral tablet) diclofenac (diclofenac sodium 75 mg Oral EC Tab) doxazosin (doxazosin 1 mg Tab) fluticasone/umeclidinium/vilanterol (Trelegy Ellipta 100 mcg-62.5 mcg-25 mcg inhalation powder) hydrochlorothiazide-lisinopril (hydrochlorothiazide-lisinopril 12.5 mg-20 mg Tab) liothyronine (liothyronine 25 mcg Tab) lisinopril (lisinopril 20 mg Tab) pantoprazole (Pantoprazole [address] Tab) sildenafil (sildenafil 100 mg Tab) Procedures Performed TURBT - Transurethral resection of bladder tumor (07/06/2024), Cystoscopy (04/27/2023), TURBT - Transurethral resection of bladder tumor (01/14/2023), TURBT - Transurethral resection of bladder tumor(02/17/2022), TURBT - Transurethral resection of bladder tumor [...] Appointments Wednesday 10:00 AM EDT With: LAUREN WOODY PA-C Where: [facility] [address] [place] [address]- Wednesday 10:00 AM EDT With: LAUREN WOODY PA-C Where: [facility] [address] [place] [address]- Wednesday 8:30 AM EDT With: Lionel WHITNEY MD Where: [facility] [address] [place] [address]- Medications What How Much When Instructions Unchanged [...] vilanterol (Trelegy Ellipta 100 mcg-62.5 mcg-25 mcg inhalationpowder) 1 Puffs Inhalation Every day Unchanged hydrochlorothiazide-lisinopril (hydrochlorothiazide-lisinopril 12.5 mg-20 mg Tab) 1 Tablets Unchanged [...] you for choosing us for your care. [facility] CenterMR HIP LEFT WO IV CONTRASTon 67-30-4785PQ HIP LEFT WO IV CONTRASTEXAMINATION/TECHNIQUE: MR HIP LEFT WO IV CONTRAST History: Left hip pain for 6 months. No recent injury. Concern for avascular necrosis. Comparison: Radiographs 07/04/2024. RESULT: RIGHT HIP JOINT: Unremarkable on large field of view imaging. LEFT HIP JOINT: No evidence for fracture or avascular necrosis. Osteophytes. No distinct measurablefull-thickness chondral defect. No joint effusion. Fraying in [...] trochanteric bursitis. ELECTRONICALLY SIGNED BY: Toribio Sheets MDNormalNot AvailableComment on above: Order Comment: PLEASE CALL PT TO SCHEDULEMain OR Preoperative Recordon [id number] OR Preoperative RecordMain OR Preoperative Record Holding Area Document Type FTURO Summary Primary Physician: Lionel WHITNEY MD Finalized Date/Time: 10/31/24 16:29:26 Pt. Name: MARY DIAZ Sue Verma/Sex: 1950 Male Med Rec #: [id number] Physician: Lionel WHITNEY MD Financial #: [id number] Pt. Type: O Room/Bed: / Admit/Disch: 10/24/24 09:20:44 - 10/24/24 23:59:59 Institution: Case Times Holding FTURO Pre-Care Text: Verifies consent for planned procedure, identifies individual values and wishes concerning care, includes family members in perioperative teaching Secures patient's records' belongings, and valuables, maintains patient's dignity and privacy, and maintains patient confidentiality Entry 1 In Holding 10/24/24 09:35:00 Outcomes Met? Yes Last Modified By: Frances Byrnes RN 10/24/24 09:35:41 Post-Care Text: The patient participates in decisions affecting his or her perioperative plan of care The patient'sright to privacy is maintained Surgery Checklist FTURO [...] Collected RN Reviewed Yes Last Modified By: PAULINA Rene RN, Ruthann 10/31/24 16:29:17 General Comments: CHART OPENED TO COMPLETE AND FINALIZE MARINO ZELAYA Finalized By: PAULINA Rene RN, Ruthann Document Signatures Signed By: PAULINA Rene RN, Ruthann 10/31/24 16:29NormalLancaster Municipal Hospital UroVysion Fish and Urine Cyto ([facility])on [id number] & UCDiagnosis Info Invalid Interpretation Marion HospitalComment on above:Result Comment: A:Urine,Urine:Bladder Wash Diagnosis Summary - Occasional atypical urothelial cells with degenerative changes. Diagnosis Summary - The UroVysion FISH study detected normal copy numbers for chromosomes 3, 7, 17,and 9p21. 132 cells were analyzed in this evaluation. No evidence of aneuploidy for chromosomes 3, 7, or 17 or deletion of the 9p21 locus was found in cells present in this specimen. This test does not rule out the possibility of a low grade non-invasive papillary urothelial carcinoma. These findings should be correlated with cytology and cystoscopy results. * CPT: 80363, 34350. Microscopic Notes - Microscopic Notes - Abnormal cells 9p21 deletions: Abnormal cells aneploid events: Total cells analyzed: 132 Hematuria: Gross Description Site ID:A color Yellow fixative Alcohol Received 90 mls of clear yellow fluid with the patient's name and, Urine on the vial. Electronically signed by : on: 10/30/2024 14:51:19Performed By: #### [id number] #### [facility] [address] [place], [place] [address]Zeem OR Intraoperative Recordon [id number] OR Intraoperative RecordMain OR Intraoperative Record IntraOp Document Type FTURO Summary Primary Physician: Lionel WHITNEY MD Finalized Date/Time: 10/24/24 10:25:48 Pt. Name: EMILYMARY/Sex: 1950 Male Med Rec #: [id number] Physician: Lionel WHITNEY MD Financial #: [id number] Pt. Type: O Room/Bed: / Admit/Disch: 10/24/24 09:20:44 - Institution: Case Times FTURO Entry 1 Patient Times In Room 10/24/24 10:10:00 Out Room 10/24/24 10:29:00 Procedure Times Start 10/24/24 10:18:00 Stop 10/24/24 10:24:00 Anesthesia Times Last Modified By: Edgard ZELAYA, Cheryl GALLARDO 10/24/24 10:23:49 Case Attendance FTURO Entry 1 Entry 2 Entry 3 Case Attendee DEVONTE NOBLE, Lionel Rene RN, PAULINA, Safia GROSS, Nanci Luna Role Performed Surgeon - Primary Market Development Analyst - Primary Scrub - Primary Time In 10/24/24 09:45:00 10/24/24 09:45:00 10/24/24 09:45:00 Time Out 10/24/24 10:29:00 10/24/24 10:29:00 10/24/24 10:29:00 Procedure CYSTOSCOPY LOCAL(.) CYSTOSCOPY LOCAL(.) CYSTOSCOPY LOCAL(.) Comments Last Modified By: Edgard ZELAYA, EDITHOR, Edgard ZELAYA, EDITHOR, Edgard ZELAYA, EIDTHOR, Cheryl 10/24/24 Cheryl 10/24/24 Cheryl 10/24/24 10:23:50 10:23:50 10:23:50 Surgical Procedures FTURO Entry 1 Procedure Description Procedure CYSTOSCOPY LOCAL Modifiers . Surgeon Description CYSTO Primary Procedure Yes Primary Surgeon Lionel WHITNEY MD Start 10/24/24 10:18:00 Stop 10/24/24 10:24:00 Anesthesia Type Local Surgical Service Urology Wound Class 2 - Clean-Contaminated Last Modified By: Edgard ZELAYA, EDITHOR, Cheryl 10/24/24 10:23:56 General Case Data FTURO Pre-Care Text: Classifies surgical wound, implements aseptic technique, initiates traffic control Entry 1 Case Information OR URO 1 FT Case Level None Wound Class 2 - Clean-Contaminated Specialty Urology Preop Diagnosis HISTORY OF BLADDER AND Postop Same As Preop No PROSTATE CANCERS Postop Diagnosis clear bladder Outcomes Met? Yes Last Modified By: Edgard ZELAYA, EDITHOR, Cheryl 10/24/24 10:21:51 Post-Care Text: The patient [...] Signed By: PAULINA Rene RN, Ruthann 10/24/24 10:25[facility] Operative Reporton [id number] ReportOperative Report Patient: MARY DIAZ Age: 74 years [...] then surveillance cystoscopy in 3 to 4 months..[facility] CenterComment on above:Result Comment: Electronically Signed By: DEVONTE NOBLE, Lionel Ernandez\Date and Time Signed: 10/24/24 10:31 EDTUroVysion Fish and Urine Cyto ([facility])on [id number] Method of ExtractionBladder WashNoCincinnati VA Medical CenterComment on above:Performed By: #### [id number] #### [facility] [address], [place] [address]IQZH Number of Hirh1Mweevcc Interpretation [facility] HospitalComment on above:Performed By: #### [id number] #### [facility] [address], [place] [address]LACT SpecimenUrineDiley Ridge Medical CenterComment on above:Performed By: #### [id number] #### [facility] [address], [place] [address]XXTZ Type of ServiceTechnical OnlyDiley Ridge Medical CenterComment on above:Performed By: #### [id number] #### [facility] [address], [place] [address]Xfdfogofxd Visit Summaryon 46-77-6901Daftoufwzl Visit Summary Ambulatory Visit Summary MARY DIAZ [...] EC Tab) doxazosin (doxazosin 1 mg Tab) fluticasone/umeclidinium/vilanterol (Trelegy Ellipta 100 mcg-62.5 mcg-25 mcg inhalation powder) hydrochlorothiazide-lisinopril (hydrochlorothiazide-lisinopril 12.5 mg-20 mg Tab) liothyronine (liothyronine 25 mcg Tab) lisinopril (lisinopril 20 mg Tab) pantoprazole (Pantoprazole [address] Tab) Procedures Performed TURBT - Transurethral resection of bladder tumor (07/06/2024), Cystoscopy (04/27/2023), TURBT - Transurethral resection of bladder tumor (01/14/2023), TURBT - Transurethral resection of bladder tumor(02/17/2022), TURBT - Transurethral resection of bladder tumor [...] Urology [address], [place] [address] [phone] Medications What How Much When Instructions Unchanged [...] Tablets By Mouth 2 times a day Contactprescribing physician if questions or concerns Unchanged doxazosin (doxazosin 1 mg Tab) 1 Tablets Contact prescribing physician if questions or concerns Unchanged fluticasone/ umeclidinium/ vilanterol (Trelegy Ellipta 100 mcg-62.5 mcg-25 mcg inhalationpowder) 1 Puffs Inhalation Every day Contact prescribing physician if questions or concerns Unchanged hydrochlorothiazide-lisinopril (hydrochlorothiazide-lisinopril 12.5 mg-20 mg Tab) 1 Tablets Contact prescribing physician if questions or concerns Unchanged liothyronine (liothyronine 25 mcg Tab) Contact prescribing physician if questions or concerns Unchanged lisinopril (lisinopril 20 mg Tab) 1 Tablets Contact prescribing physician if questions orconcerns Unchanged pantoprazole (Pantoprazole [address] Tab) 1 Tablets By Mouth Every day Contact prescribingphysician if questions or concerns Allergies codeine (hives/rashes) [...] the bladder and the uret (more content notincluded)...[facility] CenterAmbulatory Visit SummaryAmbulatory Visit Summary MARY DIAZ :1950 Visit Date:10/09/2024 [...] EC Tab) doxazosin (doxazosin 1 mg Tab) fluticasone/umeclidinium/vilanterol (Trelegy Ellipta 100 mcg-62.5 mcg-25 mcg inhalation powder) hydrochlorothiazide-lisinopril (hydrochlorothiazide-lisinopril 12.5 mg-20 mg Tab) liothyronine (liothyronine 25 mcg Tab) lisinopril (lisinopril 20 mg Tab) pantoprazole (Pantoprazole [address] Tab) Procedures Performed TURBT - Transurethral resection of bladder tumor (07/06/2024), Cystoscopy (04/27/2023), TURBT - Transurethral resection of bladder tumor (01/14/2023), TURBT - Transurethral resection of bladder tumor(02/17/2022), TURBT - Transurethral resection of bladder tumor [...] [facility] [address], [place] [phone] Medications What How Much When Instructions Unchanged [...] Tablets By Mouth 2 times a day Contactprescribing physician if questions or concerns Unchanged doxazosin (doxazosin 1 mg Tab) 1 Tablets Contact prescribing physician if questions or concerns Unchanged fluticasone/ umeclidinium/ vilanterol (Trelegy Ellipta 100 mcg-62.5 mcg-25 mcg inhalationpowder) 1 Puffs Inhalation Every day Contact prescribing physician if questions or concerns Unchanged hydrochlorothiazide-lisinopril (hydrochlorothiazide-lisinopril 12.5 mg-20 mg Tab) 1 Tablets Contact prescribing physician if questions or concerns Unchanged liothyronine (liothyronine 25 mcg Tab) Contact prescribing physician if questions or concerns Unchanged lisinopril (lisinopril 20 mg Tab) 1 Tablets Contact prescribing physician if questions orconcerns Unchanged pantoprazole (Pantoprazole [address] Tab) 1 Tablets By Mouth Every day Contact prescribingphysician if questions or concerns Allergies codeine (hives/rashes) [...] the bladder and the uret (more content notincluded)...[facility] CenterUrology Office/Clinic Noteon [id number] Office/Clinic NoteUrology Office/Clinic Note Chief Complaint f/u with PSA [...] states that he completed 6 BCG's at [facility] cancer center in August. History of Present Illness Tests reviewed: reviewed UA, PSA, CT scans I have reviewed the previous health record information and history for this patient from Dr. Mccall external providers. I have reviewed and verified [...] TURBT 02/17/22 - Path was sent to [facility] for second opinion, 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 Mitomycin 03/26/22 and 04/20/22. TURBT 01/14/23 - Neg. Chronic inflammation and extensive necrosis. 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 [1] Saw Dr. Norberto Andrade 07/19/24 at [facility], recommended BCG #6 to start 2wks later. BCG #6 complete 09/13/24 [facility]. Neg CT AP/Chest scan 09/01/24 F. -Has cysto scheduled 10/24/24 2. History of prostate cancer (Z85.46: Personal history of malignant neoplasm of prostate) PSA: 07/05/20 - 0.05 09/12/21 - 0.05 09/21/22 - <0.13 09/21/23 - <0.13 ([facility]) 08/16/24 - 0.03 ([facility]) S/p radical prostatectomy 08/2014. PSA remains low [...] Lionel Burgos, URL [facility] [address] [place] [address] [phone] Additional Instructions: has cysto in October Patient [...] (01/14/2023), TURBT - Transurethral resection of bladder tumor(02/17/2022), TURBT - Transurethral resection of bladder tumor [...] tab(s), Oral, BID doxazos (more content not included)...NormalFisher Dawson Medical CenterComment on above:Result Comment: Electronically Signed By: Lionel WHITNEY MD\.br\Date and Time Signed: 10/09/24 11:06 EDT\.br\Electronically Co-Signed By: Lilo Zhou\.br\Date and Time Co-Signed: 10/09/24 11:03 EDTNo Panel Informationon [id number] Mehta 10/06/2024 10:34 AM L Inj/Asp: L [...] discussed. Consent was given by the patient. [facility] Heart Perfusion W stress and W radionuclide IV on [id number] Lexiscan Myoview cardiac perfusion imaging stress test. [...] Carlos Bell 09/20/2024 3:47 PM Dictation workstation: [id number] By: Carlos Bell and Giannuzzi Michael STUDY: MYOCARDIAL PERFUSION STRESS TEST WITH EXERCISE CONVERTED TO LEXISCAN Performing facility: [facility] Provider: Cady Espinosa MD, FACC PCP: Dr. Pascual Monterroso Supervising provider: Rolly Michaels MD, FACC INDICATION: Signs/Symptoms:ABN EKG, chest pressure. ,R07.89 Other chest pain,R06.02 Shortness of breath HISTORY: Gender: M; Age: 74 y/o ; Height: HT 182.9 cm cm; Weight: WT 88.633 kg kg. High Cholesterol; HTN; Chest Pain; SOB; Quit smoking 21 years ago. COMPARISON: No comparison. ACCESSION NUMBER(S): [id number] ORDERING CLINICIAN: CADY ESPINOSA TECHNIQUE: ONE DAY [...] There were evidence of diaphragmatic attenuation artifact. Carlos Currie MD - 09/20/2024 Interpreted By: Carlos Bell and Giannuzzi Michael STUDY: MYOCARDIAL PERFUSION STRESS TEST WITH EXERCISE CONVERTED TO LEXISCAN Performing facility: [facility] Provider: Cady Espinosa MD, FACC PCP: Dr. Pascual Monterroso Supervising provider: Rolly Michaels MD, [facility] INDICATION: Signs/Symptoms:ABN EKG, chest pressure. ,R07.89 Other chest pain,R06.02 Shortness of breath HISTORY: Gender: M; Age: 74 y/o ; Height: HT 182.9 cm cm; Weight: WT 88.633 kg kg. High Cholesterol; HTN; Chest Pain; SOB; Quit smoking 21 years ago. COMPARISON: No comparison. ACCESSION NUMBER(S): [id number] ORDERING CLINICIAN: CADY ESPINOSA TECHNIQUE: ONE DAY [...] Carlos Bell 09/20/2024 3:47 PM Dictation workstation: [id number] [facility] Work Phone: Radiology Study observation (narrative)[facility] Work Phone: nm Heart Perfusion W stress and W radionuclide IV Ordered By: Carlos Bell on 31-05-0600CwooqtmnloSelect Medical Specialty Hospital [facility], [facility] Work Phone: NUCLEAR STRESS TESTon [id number] STRESS TEST Interpreted By: Carlos Bell and Giannuzzi Michael STUDY: MYOCARDIAL PERFUSION STRESS TEST WITH EXERCISE CONVERTED TO LEXISCAN Performing facility: [facility] Provider: Cady Espinosa MD, FACC PCP: Dr. Pascual Monterroso Supervising provider: Rolly Michaels MD, FACC INDICATION: Signs/Symptoms:ABN EKG, chest pressure. ,R07.89 Other chest pain,R06.02 Shortness of breath HISTORY: Gender: M; Age: 74 y/o ; Height: HT 182.9 cm cm; Weight: WT 88.633 kg kg. High Cholesterol; HTN; Chest Pain; SOB; Quit smoking 21 years ago. COMPARISON: No comparison. ACCESSION NUMBER(S): [id number] ORDERING CLINICIAN: CADY ESPINOSA TECHNIQUE: ONE DAY [...] Carlos Bell 09/20/2024 3:47 PM Dictation workstation: [id number] Valley Health [facility] CBC W Auto Differential panel (Bld)on 86-68-5726Vmnunbpnt (Bld) [#/Vol]0.03 10*3/uLNINFUniversity Hospitals Parma Medical CenterBasophils/100 WBC (Bld)0.4 %[facility] Differential cell count method Nom (Bld)AutoCleveland ClinicEosinophils (Bld) [#/Vol]0.13 10*3/uLNINFUniversity Hospitals Parma Medical CenterEosinophils/100 WBC (Bld)1.6 %[facility] Parma Medical CenterErythrocyte distribution width (RBC) [Ratio]13.2 %11.5 - 15.0 %[facility] Parma Medical CenterHematocrit (Bld) [Volume fraction]37.8 %Low39.0 - 51.0 %[facility] Hemoglobin (Bld) [Mass/Vol]12.4 g/dLLow13.0 - 17.0 g/dLUniversity Hospitals Parma Medical CenterImmature granulocytes (Bld) [#/Vol]0.03 10*3/uLNINFUniversity Hospitals Parma Medical CenterImmature granulocytes/100 WBC (Bld)0.4 %[facility] Medical CenterInterpretation and review of laboratory resultsAbnormalCleveland ClinicLymphocytes (Bld) [#/Vol]1.84 10*3/uL [facility] Par[facility] Medical CenterLymphocytes/100 WBC (Bld)22.3 %[facility] HospitalH (RBC) [Entitic mass]30.6 pg26.0 - 34.0 pgClevelEssentia HealthHC (RBC) [Mass/Vol]32.8 g/dL30.5 - 36.0 g/dLJoint Township District Memorial HospitalV (RBC) [Entitic vol]93.3 fL80.0 - 100.0 fLCDoctors HospitalMonocytes (Bld) [#/Vol]0.72 10*3/uLNINFUniversity Hospitals Parma Medical Center Monocytes/100 WBC (Bld)8.7 %[facility] Medical CenterNeutrophils (Bld) [#/Vol]5.51 10*3/uLUniversity Hospitals Parma Medical CenterNeutrophils/100 WBC (Bld)66.6 %[facility] Medical CenterNucleated RBC (Bld) [#/Vol]NINFCleveland ClinicNucleated RBC/100 WBC (Bld) [Ratio]0 %/100 WBCUniversity Hospitals Parma Medical CenterPlatelet mean volume (Bld) [Entitic vol]9.6 fL9.0 - 12.7 fL [facility] Medical CenterPlatelets (Bld) [#/Vol]267 10*3/uLMontezuma ClinicRBC (Bld) [#/Vol]4.05 10*6/uLLow4.20 - 6.00 m/uLCleveland ClinicWBC (Bld) [#/Vol]8.26 10*3/Wayne HospitalBasophils (Bld) [#/Vol]0.03 10*3/uLNormal <0.11CTrinity Health System on above:Order Comment: Specimen Type: BLOOD SPECIMENOrdering Facility: [facility] Address:[address] [place], [place] [address]Performed By: #### 89454-0 ####[facility] LABCLIA [id number] [place] [address] Basophils/100 WBC (Bld)0.4 %[facility] on above: Order Comment: Specimen Type: BLOOD SPECIMENOrdering Facility: [facility] Address:[address] [place], [place] [address]Performed By: #### 29275- 8 ####[facility] LABCLIA [id number] [place], [place] [address]Lsoxkqgywbgv cell count method Nom (Bld)AutoNormal [facility] on above:Order Comment: Specimen Type: BLOOD SPECIMENOrdering Facility: [facility] Address:[address] [place], [place] [address]Performed By: #### 67652-9 ####[facility] LABCLIA [id number] [place], [place] [address]Bglxpyepahj (Bld) [#/Vol]0.13 10*3/uLNormal<0.46[facility] on above: Order Comment: Specimen Type: BLOOD SPECIMENOrdering Facility: [facility] Address:[address] [place], [place] [address]Performed By: #### 52285- 8 ####[facility] LABCLIA [id number] [place], [place] [address]Tjvliiabpri/100 WBC (Bld)1.6 %NormalUniversity Hospitals Ahuja Medical Center on above:Order Comment: Specimen Type: BLOOD SPECIMENOrdering Facility: [facility] Address:[address] [place], [place] [address]Performed By: #### 31487-6 ####[facility] LABIA [id number] [place], [place] [address]Yxbdoydobzm distribution width (RBC) [Ratio]13.2 %Gnkjnb45.5-15.0[facility] on above: Order Comment: Specimen Type: BLOOD SPECIMENOrdering Facility: [facility] Address:[address] [place], [place] [address]Performed By: #### 04106- 8 ####[facility] LABIA [id number] [place], [place] [address]Wsriyvbovu (Bld) [Volume fraction]37.8 %Low39.0-51.0 [facility] on above:Order Comment: Specimen Type: BLOOD SPECIMENOrdering Facility: [facility] Address:[address] [place], [place] [address]Performed By: #### 10896-3 ####[facility] LABIA [id number] [place], [place] [address]Xbjqhsnill (Bld) [Mass/Vol]12.4 g/dLLow13.0-17.0[facility] on above:Order Comment: Specimen Type: BLOOD SPECIMENOrdering Facility: [facility] Address:[address] [place], [place] [address]Performed By: #### 95716- 8 ####[facility] LABIA [id number] [place], [place] [address]Ntgpcifj granulocytes (Bld) [#/Vol]0.03 10*3/uLNormal <0.10[facility] on above:Order Comment: Specimen Type: BLOOD SPECIMENOrdering Facility: [facility] Address:[address] [place], [place] [address]Performed By: #### 19537-4 ####[facility] LABCLIA [id number] [place], [place] [address]Beyifflb granulocytes/100 WBC (Bld)0.4 %NormalUniversity Hospitals Ahuja Medical Center on above: Order Comment: Specimen Type: BLOOD SPECIMENOrdering Facility: [facility] Address:[address] [place], [place] [address]Performed By: #### 94138- 8 ####[facility] LABCLIA [id number] [place], [place] [address]Czvfbphqohb (Bld) [#/Vol]1.84 10*3/uLNormal1.00-4.00 [facility] on above:Order Comment: Specimen Type: BLOOD SPECIMENOrdering Facility: [facility] Address:[address] [place], [place] [address]Performed By: #### 96928-3 ####[facility] LABIA [id number] [place], [place] [address]Rzydlnxazhv/100 WBC (Bld)22.3 %NormalUniversity Hospitals Ahuja Medical Center on above:Order Comment: Specimen Type: BLOOD SPECIMENOrdering Facility: [facility] Address:[address] [place], [place] [address]Performed By: #### 02626-6 ####[facility] LABCLIA [id number] [place], [place] [address]PET (RBC) [Entitic mass]30.6 zpMazbfo99.0-34.0[facility] on above:Order Comment: Specimen Type: BLOOD SPECIMENOrdering Facility: [facility] Address:[address] [place], [place] [address]Performed By: #### 09017-4 ####[facility] LABIA [id number] [place], [place] [address]PAEX (RBC) [Mass/Vol]32.8 g/jVBgfmer97.5-36.0[facility] on above: Order Comment: Specimen Type: BLOOD SPECIMENOrdering Facility: [facility] Address:[address] [place], [place] [address]Performed By: #### 37728- 8 ####[facility] LABCLIA [id number] [place], [place] [address]KOZ (RBC) [Entitic vol]93.3 pKQbjzut48.0-100.0[facility] on above:Order Comment: Specimen Type: BLOOD SPECIMENOrdering Facility: [facility] Address:[address] [place], [place] [address]Performed By: #### 24612-3 ####[facility] LABIA [id number] [place], [place] [address]Fqbwjkchw (Bld) [#/Vol]0.72 10*3/uLNormal<0.87[facility] on above:Order Comment: Specimen Type: BLOOD SPECIMENOrdering Facility: [facility] Address:[address] [place], [place] [address]Performed By: #### 11853- 8 ####[facility] LABIA [id number] [place], [place] [address]Aiuzozotj/100 WBC (Bld)8.7 %NormalUniversity Hospitals Ahuja Medical Center on above:Order Comment: Specimen Type: BLOOD SPECIMENOrdering Facility: [facility] Address:[address] [place], [place] [address]Performed By: #### 72903-2 ####[facility] LABCLIA [id number] [place], [place] [address]Jibtatfeuxp (Bld) [#/Vol]5.51 10*3/uLNormal1.45-7.50[facility] on above:Order Comment: Specimen Type: BLOOD SPECIMENOrdering Facility: [facility] Address:[address] [place], [place] [address]Performed By: #### 60772-1 ####[facility] LABCLIA [id number] [place], [place] [address]Hxxdmfwjftz/100 WBC (Bld)66.6 %NormalUniversity Hospitals Ahuja Medical Center on above:Order Comment: Specimen Type: BLOOD SPECIMENOrdering Facility: [facility] Address:[address] [place], [place] [address]Performed By: #### 78848-0 ####[facility] LABCLIA [id number] [place], [place] [address]Jcqnrkamg RBC (Bld) [#/Vol] 10*3/uLNormal<0.01[facility] on above:Order Comment: Specimen Type: BLOOD SPECIMENOrdering Facility: [facility] Address:[address] [place], [place] [address]Performed By: #### 40874-1 ####[facility] LABIA [id number] [place], [place] [address]Picghbgfk RBC/100 WBC (Bld) [Ratio]0.0 /100 WBCNormal [facility] on above:Order Comment: Specimen Type: BLOOD SPECIMENOrdering Facility: [facility] Address:[address] [place], [place] [address]Performed By: #### 79724-1 ####[facility] LABCLIA [id number] [place], [place] [address]Gvpddxdn mean volume (Bld) [Entitic vol]9.6 fLNormal9.0-12.7CTrinity Health System on above:Order Comment: Specimen Type: BLOOD SPECIMENOrdering Facility: [facility] Address:[address] [place] [address] Performed By: #### 08526-8 ####[facility] LABIA [id number] [place], [place] [address]Fpqgsqphb (Bld) [#/Vol]267 10*3/iTHaaugr579-954NctoeyhslUniversity Hospitals Ahuja Medical Center on above:Order Comment: Specimen Type: BLOOD SPECIMENOrdering Facility: [facility] Address:[address] [place], [place] [address]Wnvmjbjqs By: #### 49140-5 ####[facility] LABIA [id number] [place], [place] [address]KER (Bld) [#/Vol]4.05 10*6/uLLow4.20-6.00[facility] on above:Order Comment: Specimen Type: BLOOD SPECIMENOrdering Facility: [facility] Address:[address] [place] [address]Xmweszosp By: #### 56628-9 ####[facility] LABIA [id number] [place], [place] [address]THF (Bl) [#/Vol]8.26 10*3/uL Normal3.70-11.00[facility] on above:Order Comment: Specimen Type: BLOOD SPECIMENOrdering Facility: [facility] Address:[address] [place] [address]Ulpjonqhq By: #### 28597-9 ####[facility] LABIA [id number] [place], [place] [address]OQOEULGxp 35-83-7466GTTUHIALmoci Visit (HEMASA) MARY DIAZ ([id number]) 1950 M [facility] Date Time Provider Department 09/13/24 2:00 PM BRUNO NURSE ENRIQUE TAY During your visit today, we recorded the following information about you: Suzanna Waters MA 09/13/2024 1:46 PM Signed UA performed as ordered. Suzanna Waters MA Referring Provider: NORBERTO ANDRADE [[id number]] Allergies As of Date: 09/13/2024 Noted Allergy [...] by mouth at bedtime as needed. - gyloqdcxwvq-zsqpvmfov-cqpensrt (TRELEGY ELLIPTA) 100-62.5-25 mcg inhalation powder = [...] by mouth as needed (bedtime prn). - mv-min/folic/K1/lycopen/lutein (MEN 50 PLUS MULTIVITAMIN ORAL) Take 1 tablet by mouth once daily. - lisinopril (ZESTRIL) 20 mg tablet Take 20 mg by mouth once daily. - lisinopril-hydroCHLOROthiazide (ZESTORETIC) 20-12.5 mg per tablet Take [...] 100 mg by mouth as needed. - smasnsbdoii-yyjyufdcs-zplcqbex (TRELEGY ELLIPTA) 100-62.5-25 mcg inhalation powder Inhale [...] 07/26/2024 Encounter Status:Closed by SUZANNA WATERS on 09/13/24[facility] HospitalCNOVSPon [id number] (SP) Office ([place]) MARY DIAZ ([id number]) 1950 [facility] Date Time Provider Department 09/13/24 1:00 PM NORBERTO ANDRADE During your visit today, we recorded the following information about you: Temperature Pulse Respiration Blood pressure 97.6 degrees 73/minute 18/minute 119/75 Weight 86.6 kg Norberto Andrade MD 09/13/2024 1:18 PM Signed PATIENT NAME: Mary Diaz [facility] NO.: [id number] ATTENDING PHYSICIAN: Norberto Andrade MD DATE OF SERVICE: 09/13/[address] Lionel Whitney [address] [place] [address] thank you for referring Mary Diaz for [...] atleast 1 fragment without obvious stromal invasion (dental specialist). 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 Urology recommended induction [...] tablet by mouth at bedtime as needed. rcrehrqotpg-aatoiquvp-mdwqfypu (TRELEGY ELLIPTA) 100-62.5-25 mcg inhalation powder = [...] Take 100 mg by mouth as needed. okrfoihkptg-bpvfmmrtf-udyxoani (TRELEGY ELLIPTA) 100-62.5-25 mcg inhalation powder Inhale [...] Hypertension Father Social History (more content not included)...NormalParkview HealthComprehensive metabolic 2000 panelOrdered By: Violeta Presley on 98-14-2761Bckwbrr [Mass/Vol]4.5 g/dL3.9 - 4.9 g/dLMontezuma ClinicALP [Catalytic activity/Vol]56 U/L38 - 113 U/L [facility]zuma ClinicALT [Catalytic activity/Vol]19 U/L10 - 54 U/LCleveland Clinic Anion gap [Moles/Vol]11 mmol/L8 - 15 mmol/LCleveland ClinicAST [Catalytic activity/Vol]16 U/L14 - 40 U/LCleveland ClinicBilirubin [Mass/Vol]0.4 mg/dL0.2 - 1.3 mg/dLMontezuma ClinicCalcium [Mass/Vol]10 mg/dL8.5 - 10.2 mg/dLMontezuma ClinicChloride [Moles/Vol]103 mmol/L98 - 107 mmol/LCleveland ClinicCO2 [Moles/Vol]24 mmol/L22 - 30 mmol/LCleveland ClinicCreatinine [Mass/Vol]1.34 mg/dLHigh0.73 - 1.22 mg/dLMontezuma ClinicGFR/1.73 sq M.predicted among non- blacks MDRD (S/P/Bld) [Vol rate/Area]56 mL/min/{1.73_m2}Low- PINFCleveland ClinicComment on above:Estimated Glomerular Filtration Rate (eGFR) is calculated using the 2020 CKD-EPI creatinine equation. This equation utilizes serum creatinine, sex, and age as parameters. The creatinine assay has traceable calibration to isotope dilution-mass spectrometry. Refer to KDIGO guidelines for clinical interpretation. In patients with unstable renal function, e.g. those with acute kidney injury, the eGFRmay not accurately reflect actual GFR.Glucose [Mass/Vol]93 mg/dL74 - 99 mg/dLUniversity Hospitals Parma Medical CenterComment on above:The [place] Diabetes Association (ADA) provides guidance for cutoff values for fasting glucose andrandom glucose. The ADA defines fasting as no [...] Standards of Medical Care in Diabetes 2016, [place] Diabetes Association. Diabetes Care. 2016.39(Suppl 1). Interpretation and review of laboratory resultsAbnormalClevelmission family health center ClinicPotassium [Moles/Vol]4.5 mmol/L3.7 - 5.1 mmol/LClancaster municipal hospital ClinicProtein [Mass/Vol]6.6 g/dL 6.3 - 8.0 g/dLBrecksville VA / Crille Hospitalodium [Moles/Vol]138 mmol/L136 - 144 mmol/L [facility] Medical CenterUrea nitrogen [Mass/Vol]21 mg/dL9 - 24 mg/dLSumma Health Akron CampusComprehensive metabolic 2000 panelon 46-29-0217Duslmzr [Mass/Vol]4.5 g/dLNormal3.9-4.9CTrinity Health System on above:Order Comment: Specimen Type: BLOOD SPECIMENOrdering Facility: [facility] Address:[address] [place], [place] [address]Performed By: #### 17122- 8 ####[facility] LABCLIA [id number] [place], [place] [address]MYA [Catalytic activity/Vol]56 U/RObjwpr18-323NuqfigstgUniversity Hospitals Ahuja Medical Center on above:Order Comment: Specimen Type: BLOOD SPECIMENOrdering Facility: [facility] Address:[address] [place], [place] [address]Performed By: #### 25922-7 ####[facility] LABCLIA [id number] [place], [place] [address]JNQ [Catalytic activity/Vol]19 U/GPdtevi92-17SabuliclzUniversity Hospitals Ahuja Medical Center on above:Order Comment: Specimen Type: BLOOD SPECIMENOrdering Facility: [facility] Address:[address] [place], [place] [address]Performed By: #### 69337- 8 ####[facility] LABCLIA [id number] [place], [place] [address]Ylcui gap [Moles/Vol]11 mmol/LNormal8-15[facility] on above:Order Comment: Specimen Type: BLOOD SPECIMENOrdering Facility: [facility] Address:[address] [place], [place] [address]Performed By: #### 51104-7 ####[facility] LABCLIA [id number] [place], [place] [address]SUG [Catalytic activity/Vol]16 U/ZVvqrjd12-43XwnstrzxuUniversity Hospitals Ahuja Medical Center on above:Order Comment: Specimen Type: BLOOD SPECIMENOrdering Facility: [facility] Address:[address] [place], [place] [address]Performed By: #### 63773-4 ####[facility] LABCLIA [id number] [place] [address] Bilirubin [Mass/Vol]0.4 mg/dLNormal0.2-1.3CTrinity Health System on above:Order Comment: Specimen Type: BLOOD SPECIMENOrdering Facility: [facility] Address:[address] [place], [place] [address]Performed By: #### 48529-2 ####[facility] LABCLIA [id number] [place], [place] [address]Lubzuox [Mass/Vol]10.0 mg/dLNormal8.5-10.2CTrinity Health System on above:Order Comment: Specimen Type: BLOOD SPECIMENOrdering Facility: [facility] Address:[address] [place], [place] [address]Performed By: #### 35661-3 ####[facility] LABCLIA [id number] [place], [place] [address]Aihoftxi [Moles/Vol]103 mmol/JPrhsly07-973ZsrmuywcbUniversity Hospitals Ahuja Medical Center on above: Order Comment: Specimen Type: BLOOD SPECIMENOrdering Facility: [facility] Address:[address] [place], [place] [address]Performed By: #### 90870- 8 ####[facility] LABCLIA [id number] [place], [place] [address]PH7 [Moles/Vol]24 mmol/LImywuv31-53IdjjldkyeUniversity Hospitals Ahuja Medical Center on above:Order Comment: Specimen Type: BLOOD SPECIMENOrdering Facility: [facility] Address:[address] [place], [place] [address]Performed By: #### 51486-1 ####[facility] LABCLIA [id number] [place], [place] [address]Ejkgeprcag [Mass/Vol]1.34 mg/dL High0.73-1.22[facility] on above:Order Comment: Specimen Type: BLOOD SPECIMENOrdering Facility: [facility] Address:[address] [place], [place] [address]Performed By: #### 43531-4 ####[facility] LABCLIA [id number] [place] [address] Creatinine and Glomerular filtration rate.predicted panel (S/P/Bld)56 mL/min/1.73m???Low>=60[facility] on above:Order Comment: Specimen Type: BLOOD SPECIMENOrdering Facility: [facility] Address:[address] [place], [place] [address]Result Comment: Estimated Glomerular Filtration Rate (eGFR) is calculated using the 2020 CKD-EPI creatinine equation. This equation utilizes serum creatinine, sex, and age as parameters. The creatinine assay has traceable calibration to isotope dilution-mass spectrometry. Refer to KDIGO guidelines for clinical interpretation. In patients with unstable renal function, e.g. those with acute kidney injury, the eGFR may not accurately reflect actual GFR.Performed By: #### 13377-3 ####[facility] LABCLIA [id number] [place] [address] Glucose [Mass/Vol]93 mg/gADkapfn83-47AaygizfyeUniversity Hospitals Ahuja Medical Center on above: Order Comment: Specimen Type: BLOOD SPECIMENOrdering Facility: [facility] Address:[address] [place], [place] [address]Result Comment: The [place] Diabetes Association (ADA) provides guidance for cutoff values for fast ing glucose and random glucose. The ADA defines [...] Standards of Medical Care in Diabetes 2016, [place] Diabetes Association. Diabetes Care. 2016.39(Suppl 1).Performed By: #### 93662-2 ####[facility] LABCLIA [id number] [place], [place] [address]Kgrxtulrr [Moles/Vol]4.5 mmol/LNormal3.7-5.1CTrinity Health System on above:Order Comment: Specimen Type: BLOOD SPECIMENOrdering Facility: [facility] Address:[address] [place], [place] [address]Performed By: #### 78439-1 ####[facility] LABCLIA [id number] [place], [place] [address]Jmkhdpz [Mass/Vol]6.6 g/dLNormal6.3-8.0[facility] on above:Order Comment: Specimen Type: BLOOD SPECIMENOrdering Facility: [facility] Address:[address] [place], [place] [address]Performed By: #### 27084- 8 ####[facility] LABCLIA [id number] [place], [place] [address]Rrmkry [Moles/Vol]138 mmol/KMzpbgo476-784UobvxrdgcUniversity Hospitals Ahuja Medical Center on above:Order Comment: Specimen Type: BLOOD SPECIMENOrdering Facility: [facility] Address:[address] [place], [place] [address]Performed By: #### 99310-6 ####[facility] LABCLIA [id number] [place], [place] [address]Rkvj nitrogen [Mass/Vol]21 mg/dLNormal9-24[facility] on above:Order Comment: Specimen Type: BLOOD SPECIMENOrdering Facility: [facility] Address:[facility] [place] [address]Performed By: #### 32368-3 ####[facility] LABCLIA [id number] [place], [place] [address]IX ABD/PEL W IVCONon [id number] ABD/PEL W IVCON* * *Final Report* * * DATE OF EXAM: Sep 01 2024 3:07PM [facility] 0530 - CT ABD/PEL W IVCON / [...] any questions regarding this interpretation, please call [phone]. If you are unable to reach us at the number above, please feel free to contact [facility] eRadiology at [phone]. [id number]-Titus Medical Center CHEST W IVCONon [id number] CHEST W IVCON* * *Final Report* * * DATE OF EXAM: Sep 01 2024 3:07PM [facility] 0539 - CT CHEST W IVCON / [...] any questions regarding this interpretation, please call [phone]. If you are unable to reach us at the number above, please feel free to contact [facility] eRadiology at [phone]. [id number]_IDCSIACNNormalParkview HealthReminderson 09-01-2024 RemindersReminders From: Loretta Simons To: EU - Recalls Whitney; Sent: 04/13/2024 11:42:40 EDT Show up: 08/19/2024 11:42:00 EST Subject: Cysto/Needs FISH/cytol Due Date/Time: 09/11/2024 11:42:00 EDT Reminder/Recall Patient is due in October 2024 for 6 month cysto/fish/cytol, bt ck Spoke to ptaustyn for 10/24/24 at [facility] HospitalCNNURSE on 46-77-0359UUVYPTCQmsfu Visit (HEMASA) MARY DIAZ ([id number]) 1950 M [place] Date Time Provider Department 08/30/24 2:30 PM [facility]UN[facility] NURSE ENRIQUE TAY During your visit today, we recorded the following information about you: Suzanna Waters MA 08/30/2024 1:24 PM Signed UA performed as ordered. Suzanna Waters MA Referring Provider: NORBERTO ANDRADE [[id number]] Allergies As of Date: 08/30/2024 Noted Allergy Reaction CODEINE 03/30/2017 2 - Rash Comments: Agitation, Doesn't work Date Reviewed: 08/30/2024 Reviewed by: Alice Pearce, RN - Fully Assessed Primary Visit Diagnosis:UTI symptoms [R39.9] Prescriptions as of 08/30/2024 - HYDROcodone-acetaminophen (NORCO) 5-325 mg per tablet Take 1 tablet by mouth at bedtime as needed. - uyjuhdgsvcw-knaaxpexl-snligeuf (TRELEGY ELLIPTA) 100-62.5-25 mcg inhalation powder = [...] by mouth as needed (bedtime prn). - mv-min/folic/K1/lycopen/lutein (MEN 50 PLUS MULTIVITAMIN ORAL) Take 1 tablet by mouth once daily. - lisinopril (ZESTRIL) 20 mg tablet Take 20 mg by mouth once daily. - lisinopril-hydroCHLOROthiazide (ZESTORETIC) 20-12.5 mg per tablet Take [...] 100 mg by mouth as needed. - jrsobjaxxln-otyqjjcdo-hvrkkbqm (TRELEGY ELLIPTA) 100-62.5-25 mcg inhalation powder Inhale [...] 07/26/2024 Encounter Status:Closed by SUZANNA WATERS on 08/30/24[facility] Charles HospitalCNCarsonINTEGRIS HEALTH EDMOND – EDMONDon [id number] Visit (HEMASA) MARY DIAZ ([id number]) 1950 [facility] Date Time Provider Department 08/23/24 2:00 PM BRUN[facility] NURSE ENRIQUE TAY During your visit today, we recorded the following information about you: Santosh Del Rio MA 08/23/2024 1:29 PM Signed UA performed as ordered. Santosh Del Rio MA Referring Provider: NORBERTO ANDRADE [[id number]] Allergies As of Date: 08/23/2024 Noted Allergy Reaction CODEINE 03/30/2017 2 - Rash Comments: Agitation, Doesn't work Date Reviewed: 08/16/2024 Reviewed by: Gama Be MA - Fully Assessed Primary Visit Diagnosis:High risk medication use [Z79.899] Order(s):UA DIP, URINE (POC) [[id number]] Order #: [id number]. #:[id number] Prescriptions as of 08/23/2024 - HYDROcodone-acetaminophen (NORCO) 5-325 mg per tablet Take 1 tablet by mouth at bedtime as needed. - ccxaktdrsxt-rlfwhslcm-zphxxpxe (TRELEGY ELLIPTA) 100-62.5-25 mcg inhalation powder = [...] by mouth as needed (bedtime prn). - mv-min/folic/K1/lycopen/lutein (MEN 50 PLUS MULTIVITAMIN ORAL) Take 1 tablet by mouth once daily. - lisinopril (ZESTRIL) 20 mg tablet Take 20 mg by mouth once daily. - lisinopril-hydroCHLOROthiazide (ZESTORETIC) 20-12.5 mg per tablet Take [...] 100 mg by mouth as needed. - lkuqacqobmi-uatrisgmr-oqhzczpi (TRELEGY ELLIPTA) 100-62.5-25 mcg inhalation powder Inhale 1 Puff as instructed once daily. Problem List As Of Date 08/23/2024 Noted Resolved Bladder cancer (HCC) [C67.9] 07/26/2024 Encounter Status:Closed by SANTOSH DEL RIO on 08/23/24NormalCgrant hospitaland Pending Sale To Novant HealthUA DIP, URINE (POC)on 95-36-3035YOIKGFXAS UA (POCT)NegativeNegative [facility] Medical CenterCLARITY UA (POCT)ClearUniversity Hospitals Parma Medical CenterCOLOR UA (POCT)Yellow [facility] CenterGLUCOSE UA (POCT)NegativeNegative mg/dLUniversity Hospitals [facility] Hemoglobin Ql (U)ModerateAbnormalNegativeUniversity Hospitals Parma Medical CenterInterpretation and review of laboratory resultsAbnormalCleveland ClinicKETONE UA (POCT)Negative Negative mg/dLUniversity Hospitals Parma Medical CenterLEUKOCYTES UA (POCT)SmallAbnormalNegativeUniversity Hospitals Parma Medical CenterNITRITE UA (POCT)NegativeNegativeUniversity Hospitals Parma Medical CenterPH UA (POCT)64.5 - 8.0 [facility] CenterProtein Ql (U)NegativeNegative mg/dLBrecksville VA / Crille HospitalPECIFIC GRAVITY UA (POCT)>=1.0301.005 - 1.030[facility]ma Medical CenterUROBILINOGEN UA (POCT)0.2 Normal E.U./dLUniversity Hospitals Parma Medical CenterLocation:[facility], [address] [place] [address] , [place], [place], [address]WMJQMFWZRBERGER [facility]ITAL POINT OF CAREUniversity Hospitals Parma [facility] Center Reminderson 83-20-7527KorbihwtsLqeizogps From: Loretta Simons To: EU - Recalls Whitney; Sent: 07/12/2024 13:52:33 EST Show up: 08/07/2024 13:52:00 EST Subject: cysto after BCG tx Due Date/Time: 08/18/2024 13:52:00 EST Reminder/Recall Patient will need cysto sched 1 month after BCG tx in August 2024 Spoke to Dorota at [facility] cancer center. Pt sched for BCG tx 08/02/24- 09/13/24 last tx. Pt will get Cysto in september.LG Spoke to pt sched for 08/24/24 at [facility].LG October 24, 2024 not August.LGNormalCleveland Clinic W Auto Differential panel (Bld)on 46-26-2096Ttjubjbby (Bld) [#/Vol]0.04 10*3/uLNormal<0.11CTrinity Health System on above:Order Comment: Specimen Type: BLOOD SPECIMENOrdering Facility: [facility] Address:[address] [place], [place] [address]Performed By: #### 80446-6 ####[facility] LABCLIA [id number] [place], [place] [address]Gavfnqzpk/100 WBC (Bld)0.4 %NormalUniversity Hospitals Ahuja Medical Center on above:Order Comment: Specimen Type: BLOOD SPECIMENOrdering Facility: [facility] Address:[address] [place], [place] [address]Performed By: #### 99430-5 ####[facility] LABCLIA [id number] [place], [place] [address]Vhrqidbhrwqr cell count method Nom (Bld)AutoNormal [facility] on above:Order Comment: Specimen Type: BLOOD SPECIMENOrdering Facility: [facility] Address:[address] [place], [place] [address]Performed By: #### 45718-9 ####[facility] LABIA [id number] [place], [place] [address]Zbilfzpzbtc (Bld) [#/Vol]0.10 10*3/uLNormal<0.46[facility] on above: Order Comment: Specimen Type: BLOOD SPECIMENOrdering Facility: [facility] Address:[address] [place], [place] [address]Performed By: #### 06519- 8 ####[facility] LABCLIA [id number] [place], [place] [address]Pjtpdwdqdwn/100 WBC (Bld)0.9 %NormalUniversity Hospitals Ahuja Medical Center on above:Order Comment: Specimen Type: BLOOD SPECIMENOrdering Facility: [facility] Address:[address] [place], [place] [address]Performed By: #### 35823-0 ####[facility] LABCLIA [id number] [place], [place] [address]Ivrlniaqifw distribution width (RBC) [Ratio]12.8 %Wixaog23.5-15.0[facility] on above: Order Comment: Specimen Type: BLOOD SPECIMENOrdering Facility: [facility] Address:[address] [place], [place] [address]Performed By: #### 84823- 8 ####[facility] LABCLIA [id number] [place], [place] [address]Fdvmnfemsj (Bld) [Volume fraction]39.7 %Wjmkzt44.0-51.0 [facility] on above:Order Comment: Specimen Type: BLOOD SPECIMENOrdering Facility: [facility] Address:[address] [place], [place] [address]Performed By: #### 57240-7 ####[facility] LABCLIA [id number] [place], [place] [address]Eymgbqcces (Bld) [Mass/Vol]13.0 g/mXByxgui67.0-17.0[facility] on above: Order Comment: Specimen Type: BLOOD SPECIMENOrdering Facility: [facility] Address:[address] [place], [place] [address]Performed By: #### 10802- 8 ####[facility] LABCLIA [id number] [place], [place] [address]Olnxiizt granulocytes (Bld) [#/Vol]0.12 10*3/uLHigh<0.10 [facility] on above:Order Comment: Specimen Type: BLOOD SPECIMENOrdering Facility: [facility] Address:[address] [place], [place] [address]Performed By: #### 58885-2 ####[facility] LABCLIA [id number] [place], [place] [address]Okppixcb granulocytes/100 WBC (Bld)1.1 %NormalUniversity Hospitals Ahuja Medical Center on above: Order Comment: Specimen Type: BLOOD SPECIMENOrdering Facility: [facility] Address:[address] [place], [place] [address]Performed By: #### 12477- 8 ####[facility] LABIA [id number] [place], [place] [address]Rdwggwocxlj (Bld) [#/Vol]1.55 10*3/uLNormal1.00-4.00 [facility] on above:Order Comment: Specimen Type: BLOOD SPECIMENOrdering Facility: [facility] Address:[address] [place], [place] [address]Performed By: #### 74285-5 ####[facility] LABIA [id number] [place], [place] [address]Wrkyyamcjdn/100 WBC (Bld)14.2 %NormalUniversity Hospitals Ahuja Medical Center on above:Order Comment: Specimen Type: BLOOD SPECIMENOrdering Facility: [facility] Address:[address] [place], [place] [address]Performed By: #### 71797-7 ####[facility] LABIA [id number] [place], [place] [address]SXE (RBC) [Entitic mass]30.8 ccGhhgdo97.0-34.0[facility] on above:Order Comment: Specimen Type: BLOOD SPECIMENOrdering Facility: [facility] Address:[address] [place], [place] [address]Performed By: #### 23896-1 ####[facility] LABCLIA [id number] [place], [place] [address]QLZS (RBC) [Mass/Vol]32.7 g/mAOybzty87.5-36.0[facility] on above: Order Comment: Specimen Type: BLOOD SPECIMENOrdering Facility: [facility] Address:[address] [place], [place] [address]Performed By: #### 89739- 8 ####[facility] LABCLIA [id number] [place], [place] [address]KZC (RBC) [Entitic vol]94.1 yLNqumvn23.0-100.0[facility] on above:Order Comment: Specimen Type: BLOOD SPECIMENOrdering Facility: [facility] Address:[address] [place], [place] [address]Performed By: #### 70636-2 ####[facility] LABIA [id number] [place], [place] [address]Vwrzryluh (Bld) [#/Vol]0.96 10*3/uLHigh<0.87[facility] on above:Order Comment: Specimen Type: BLOOD SPECIMENOrdering Facility: [facility] Address:[address] [place], [place] [address]Performed By: #### 65380- 8 ####[facility] LABCLIA [id number] [place], [place] [address]Vpjygkuwf/100 WBC (Bld)8.8 %NormalUniversity Hospitals Ahuja Medical Center on above:Order Comment: Specimen Type: BLOOD SPECIMENOrdering Facility: [facility] Address:[address] [place], [place] [address]Performed By: #### 24172-4 ####[facility] LABCLIA [id number] [place], [place] [address]Daocdkneocg (Bld) [#/Vol]8.15 10*3/uLHigh1.45-7.50[facility] on above:Order Comment: Specimen Type: BLOOD SPECIMENOrdering Facility: [facility] Address:[address] [place], [place] [address]Performed By: #### 36048-9 ####[facility] LABCLIA [id number] [place], [place] [address]Oyrwdaeetvq/100 WBC (Bld)74.6 %NormalUniversity Hospitals Ahuja Medical Center on above:Order Comment: Specimen Type: BLOOD SPECIMENOrdering Facility: [facility] Address:[address] [place], [place] [address]Performed By: #### 01066-9 ####[facility] LABIA [id number] [place], [place] [address]Ejaordxhc RBC (Bld) [#/Vol] 10*3/uLNormal<0.01[facility] on above:Order Comment: Specimen Type: BLOOD SPECIMENOrdering Facility: [facility] Address:[address] [place], [place] [address]Performed By: #### 00797-5 ####[facility] LABCLIA [id number] [place], [place] [address]Iayzdmwww RBC/100 WBC (Bld) [Ratio]0.0 /100 WBCNormal [facility] on above:Order Comment: Specimen Type: BLOOD SPECIMENOrdering Facility: [facility] Address:[address] [place], [place] [address]Performed By: #### 89212-0 ####[facility] LABIA [id number] [place], [place] [address]Fgtkramz mean volume (Bld) [Entitic vol]9.7 fLNormal9.0-12.7CTrinity Health System on above:Order Comment: Specimen Type: BLOOD SPECIMENOrdering Facility: [facility] Address:[address] [place], [place] [address] Performed By: #### 34172-9 ####[facility] LABCLIA [id number] [place], [place] [address]Ebyeuhmmf (Bld) [#/Vol]311 10*3/kXXmzdkm140-861EbydnkimlUniversity Hospitals Ahuja Medical Center on above:Order Comment: Specimen Type: BLOOD SPECIMENOrdering Facility: [facility] Address:[address] [place], [place] [address]Performed By: #### 13157-5 ####[facility] LABIA [id number] [place], [place] [address]NZA (d) [#/Vol]4.22 10*6/uLNormal4.20-6.00[facility] on above:Order Comment: Specimen Type: BLOOD SPECIMENOrdering Facility: [facility] Address:[address] [place], [place] [address]Performed By: #### 17533-4 ####[facility] LABIA [id number] [place], [place] [address]BCT ([facility]) [#/Vol]10.92 10*3/uLNormal3.70-11.00[facility] on above: Order Comment: Specimen Type: BLOOD SPECIMENOrdering Facility: [facility] Address:[address] [place], [place] [address]Performed By: #### 58568- 8 ####[facility] LABIA [id number] [place], [place] [address]HQKNTSVje 90-97-7202SKAFIVKEwklc Visit (HEMASA) EMILYMARY ([id number]) 1950 M [facility] Date Time Provider Department 08/16/24 2:15 PM BRUNO NURSE ENRIQUE TAY During your visit today, we recorded the following information about you: Cydney Honeycutt MA 08/16/2024 1:53 PM Signed Back office UA test performed. Results entered in [employer] and doctor notified. Cydney Honeycutt MA Referring Provider: NORBERTO ANDRADE [[id number]] Allergies As of Date: 08/16/2024 Noted Allergy Reaction CODEINE 03/30/2017 2 - Rash Comments: Agitation, Doesn't work Date Reviewed: 08/16/2024 Reviewed by: Gama Be MA - Fully Assessed Primary Visit Diagnosis:High risk medication use [Z79.899] Order(s):UA DIP, URINE (POC) [[id number]] Order #: [id number]. #:[id number] Prescriptions as of 08/16/2024 - HYDROcodone-acetaminophen (NORCO) 5-325 mg per tablet Take 1 tablet by mouth at bedtime as needed. - rtrxotbdrzj-znnqsuocz-hoqireqv (TRELEGY ELLIPTA) 100-62.5-25 mcg inhalation powder = [...] by mouth as needed (bedtime prn). - mv-min/folic/K1/lycopen/lutein (MEN 50 PLUS MULTIVITAMIN ORAL) Take 1 tablet by mouth once daily. - lisinopril (ZESTRIL) 20 mg tablet Take 20 mg by mouth once daily. - lisinopril-hydroCHLOROthiazide (ZESTORETIC) 20-12.5 mg per tablet Take [...] 100 mg by mouth as needed. - gpyaytuhtai-usabkvmwh-uvbwgvkw (TRELEGY ELLIPTA) 100-62.5-25 mcg inhalation powder Inhale [...] [C67.9] 07/26/2024 Encounter Status:Closed by HONEYCUTTSeptember on 08/16/24[facility] Charles HospitalCNOVSPon 67-56-3551OFGQLLRmipd (SP) Office (HEMASA) MARY DIAZ ([id number]) 1950 [facility] Date Time Provider Department 08/16/24 1:00 PM NORBERTO ANDRADE During your visit today, we recorded the following information about you: Temperature Pulse Respiration Blood pressure 98.2 degrees 86/minute 16/minute 148/83 Weight 87.5 kg Norberto Andrade MD 08/16/2024 1:29 PM Signed PATIENT NAME: Mary Diaz CLINIC NO.: [id number] ATTENDING PHYSICIAN: Norberto Andrade MD DATE OF SERVICE: 08/16/[address] 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 Urology recommended induction [...] Take 100 mg by mouth as needed. zdqhgoarowt-lddcttyle-tepafibp (TRELEGY ELLIPTA) 100-62.5-25 mcg inhalation powder Inhale [...] PERFORMANCE STATUS: 0- Fully (more content not included)...NormalParkview Health Comprehensive metabolic 2000 panelon 40-67-9001Pqhtouv [Mass/Vol]4.5 g/dLNormal 3.9-4.9CTrinity Health System on above:Order Comment: Specimen Type: BLOOD SPECIMENOrdering Facility: [facility] Address:[address] [place], [place] [address]Performed By: #### 56744-8 ####[facility] LABCLIA [id number] [place] [address] [place]AL[place] [Catalytic activity/Vol]76 U/QBqvbod60-133ZdilhomjfUniversity Hospitals Ahuja Medical Center on above:Order Comment: Specimen Type: BLOOD SPECIMENOrdering Facility: [facility] Address:[address] [place], [place] [address]Performed By: #### 52931-4 ####[facility] LABCLIA [id number] [place] [address] [place] ALT [Catalytic activity/Vol]21 U/XXhdpjm06-10WfxilsuaoUniversity Hospitals Ahuja Medical Center on above:Order Comment: Specimen Type: BLOOD SPECIMENOrdering Facility: [facility] Address:[address] [place] [address] Performed By: #### 03984-4 ####[facility] LABCLIA [id number] [place] [id number] [place] Anion gap [Moles/Vol]13 mmol/LNormal8-15[facility] on above:Order Comment: Specimen Type: BLOOD SPECIMENOrdering Facility: [facility] Address:[address] [place], [place] [address]Performed By: #### 78422-0 ####[facility] LABCLIA [id number] [place] [id number] [place] AMERICAAST [Catalytic activity/Vol]20 U/QJjfnjv95-85IywyniqtmUniversity Hospitals Ahuja Medical Center on above:Order Comment: Specimen Type: BLOOD SPECIMENOrdering Facility: [facility] Address:[address] [place], [place] [address]Performed By: #### 11127- 8 ####[facility] LABCLIA [id number] [address] [address] [place] OF AMERICABilirubin [Mass/Vol]0.3 mg/dL Normal0.2-1.3CTrinity Health [facility] on above:Order Comment: Specimen Type: BLOOD SPECIMENOrdering Facility: [facility] Address:[address] [place], [place] [address]Performed By: #### 46293-6 ####[facility] LABIA [id number] [place] [id number] [place] AMERICACalcium [Mass/Vol]9.7 mg/dLNormal8.5-10.2CTrinity Health [facility] on above:Order Comment: Specimen Type: BLOOD SPECIMENOrdering Facility: [facility] Address:[address] [place], [place] [address]Performed By: #### 52441-7 ####[facility] LABCLIA [id number] [address] [address] [place] OF AMERICAChloride [Moles/Vol]102 mmol/QCjgaso62-337LxwdefzbbParkview Health Comment on above:Order Comment: Specimen Type: BLOOD SPECIMENOrdering Facility: [facility] Address:[address] [place] [address] Performed By: #### 09278-5 ####[facility] LABIA [id number] [address] [address] [place] CO2 [Moles/Vol]24 mmol/SWfpflr20-62VyszezjnzUniversity Hospitals Ahuja [facility] Center on above: Order Comment: Specimen Type: BLOOD SPECIMENOrdering Facility: [facility] Address:[address] [place], [place] [address]Performed By: #### 89706- 8 ####[facility] LABIA [id number] [facility] [id number] [place] [address] [place] AMERICACreatinine [Mass/Vol]1.45 mg/dL High0.73-1.22[facility] on above:Order Comment: Specimen Type: BLOOD SPECIMENOrdering Facility: [facility] Address:[address] [place], [place] [address]Performed By: #### 53154-2 ####[facility] LABIA [id number] [address] [address] [place] AMERICACreatinine and Glomerular filtration rate.predicted panel (S/P/Bld)51 mL/min/1.73m???Low>=60[facility] on above:Order Comment: Specimen Type: BLOOD SPECIMENOrdering Facility: [facility] Address:[address] [place], [place] [address]Result Comment: Estimated Glomerular Filtration Rate (eGFR) is calculated using the 2020 CKD-EPI creatinine equation. This equation utilizes serum creatinine, sex, and age as parameters. The creatinine assay has traceable calibration to isotope dilution- mass spectrometry. Refer to KDIGO guidelines for clinical interpretation. In patients with unstable renal function, e.g. those with acute kidney injury, the eGFR may not accurately reflect actual GFR.Performed By: #### 96616-6 ####[facility] LABIA [id number] [address] [address] [place] AMERICAGlucose [Mass/Vol]84 mg/dLNormal 74-99[facility] on above:Order Comment: Specimen Type: BLOOD SPECIMENOrdering Facility: [facility] Address:[address] [place], [place] [address]Result Comment: The [place] Diabetes Association (ADA) provides guidance for cutoff [...] Standards of Medical Care in Diabetes 2016, [place] Diabetes Association. Diabetes Care. 2016.39(Suppl 1).Performed By: #### 54326-6 ####[facility] LABIA [id number] [address] STATES OF [facility] MEDINA HOSPITALPotassium [Moles/Vol]5.2 mmol/L High3.7-5.1CTrinity Health System on above:Order Comment: Specimen Type: BLOOD SPECIMENOrdering Facility: [facility] Address:[address] [place], [place] [address]Performed By: #### 64222-2 ####[facility] [id number] [address] STATES OF AMERICAProtein [Mass/Vol]6.8 g/dLNormal6.3-8.0[facility] on above:Order Comment: Specimen Type: BLOOD SPECIMENOrdering Facility: [facility] Address:[address] [place], [place] [address]Performed By: #### 62389-2 ####[facility]IA [id number] [address] [place] Sodium [Moles/Vol]139 mmol/MWopohf792-406BnyspasznUniversity Hospitals Ahuja Medical Center on above:Order Comment: Specimen Type: BLOOD SPECIMENOrdering Facility: [facility] Address:[address] [place], [place] [address]Performed By: #### 49285-9 ####[facility] LABIA [id number] [address] STATES OF [facility] MEDINA HOSPITALUrea nitrogen [Mass/Vol]24 mg/dLNormal9-24[facility] on above:Order Comment: Specimen Type: BLOOD SPECIMENOrdering Facility: [facility] Address:[address] [place], [place] [address]Performed By: #### 73603- 8 ####[facility] LABIA [id number] [facility] [id number] [place] [address] [place] [facility] MEDINA HOSPITALPSA SerPl-mCncon 08-16-2024 Prostate specific Ag [Mass/Vol]0.03 ng/mLNormal<2.60[facility] Comment on above:Order Comment: Specimen Type: BLOOD SPECIMENOrdering Facility: [facility] Address:[address] [place], [place] [address]Result Comment: Total PSA test methodology used is the Electrochemiluminescence Immunoassay by [employer]. Total PSA values by differing methodologies cannot be interchanged.Performed By: #### 2857-1 ####[facility] LABIA [id number] [place] [address] [place] AMERICAUA DIP, URINE (POC)on 30-72-7323OGXGFOSRK UA (POCT)Negative NegativeUniversity Hospitals Parma Medical CenterCLARITY UA (POCT)ClearUniversity Hospitals Parma Medical CenterCOLOR UA (POCT) YellowUniversity Hospitals Parma Medical CenterGLUCOSE UA (POCT)NegativeNegative mg/dLUniversity Hospitals Par[facility] Center Hemoglobin Ql (U)NegativeNegativeUniversity Hospitals Parma Medical CenterInterpretation and review of laboratory resultsAbnormalCleveland ClinicKETONE UA (POCT)NegativeNegative mg/dL [facility] Medical CenterLEUKOCYTES UA (POCT)TraceAbnormalNegativeUniversity Hospitals Parma Medical CenterNITRITE UA (POCT)NegativeNegativeUniversity Hospitals Parma Medical CenterPH UA (POCT)5.54.5 - 8.0[facility] Medical CenterProtein Ql (U)NegativeNegative mg/dLBrecksville VA / Crille HospitalPECIFIC GRAVITY UA (POCT)1.021.005 - 1.030[facility] Medical CenterUROBILINOGEN UA (POCT)0.2Normal E.U./dL [facility] CenterLocation:[facility], [address] [place] [address] , [place], [place], [address]GUDDBROHJBERGER HOSPITAL POINT OF CAREUniversity Hospitals Parma Medical CenterCNNURSEon 08-09-2024 CNNURSENurse Visit (HEMASA) MARY DIAZ ([id number]) 1950 [facility] Date Time Provider Department 08/09/24 2:00 PM BRUNO NURSE ENRIQUE TAY During your visit today, we recorded the following information about you: Cydney Honeycutt MA 08/09/2024 1:50 PM Signed Back office UA test performed. Results entered in [employer] and doctor notified. Cydney Honeycutt MA Referring Provider: NORBERTO ANDRADE [[id number]] Allergies As of Date: 08/09/2024 Noted Allergy Reaction CODEINE 03/30/2017 2 - Rash Comments: Agitation, Doesn't work Date Reviewed: 08/02/2024 Reviewed by: Santosh Del Rio MA - Fully Assessed Primary Visit Diagnosis:High risk medication use [Z79.899] Order(s):UA DIP, URINE (POC) [[id number]] Order #: [id number]. #:[id number] Prescriptions as of 08/09/2024 - doxazosin (CARDURA) 1 mg tablet Take 1 mg by mouth. - methocarbamol 1,000 mg tablet Take 1,000 mg by mouth as needed (bedtime prn). - mv-min/folic/K1/lycopen/lutein (MEN 50 PLUS MULTIVITAMIN ORAL) Take 1 tablet by mouth once daily. - lisinopril (ZESTRIL) 20 mg tablet Take 20 mg by mouth once daily. - lisinopril-hydroCHLOROthiazide (ZESTORETIC) 20-12.5 mg per tablet Take [...] 100 mg by mouth as needed. - mtnrytnhwgl-wilbjnwwa-rotjmovr (TRELEGY ELLIPTA) 100-62.5-25 mcg inhalation powder Inhale 1 Puff as instructed once daily. Problem List As Of Date 08/09/2024 Noted Resolved Bladder cancer (HCC) [C67.9] 07/26/2024 Encounter Status:Closed by September on 08/09/24NoalCMarietta Osteopathic ClinicUA DIP, URINE (POC)on 79-77-8667XGGMRCSEN UA (POCT)NegativeNegative [facility] Medical CenterCLARITY UA (POCT)ClearUniversity Hospitals Parma Medical CenterCOLOR UA (POCT)Yellow [facility] Medical CenterGLUCOSE UA (POCT)NegativeNegative mg/dLUniversity Hospitals Parma Medical Center Hemoglobin Ql (U)NegativeNegativeUniversity Hospitals Parma Medical CenterInterpretation and review of laboratory resultsAbnormalCleveland ClinicKETONE UA (POCT)NegativeNegative mg/dL [facility] Medical CenterLEUKOCYTES UA (POCT)TraceAbnormalNegativeUniversity Hospitals Parma Medical CenterNITRITE UA (POCT)NegativeNegativeUniversity Hospitals Parma Medical CenterPH UA (POCT)5.54.5 - 8.0[facility] CenterProtein Ql (U)NegativeNegative mg/dLBrecksville VA / Crille HospitalPECIFIC GRAVITY UA (POCT)1.0151.005 - 1.030[facility] Medical CenterUROBILINOGEN UA (POCT)0.2Normal E.U./dL [facility] CenterLocation:[facility], [address] [place] [address] , [place], [place], [address]XUNZYLVOFBERGER HOSPITAL POINT OF CAREUniversity Hospitals Parma Medical CenterCNPNon [id number] Telephone (MAGGI) MARY DIAZ ([id number]) 1950 [facility] Time Provider Department 08/07/24 INGRID UGALDE During [...] by mouth as needed (bedtime prn). - mv-min/folic/K1/lycopen/lutein (MEN 50 PLUS MULTIVITAMIN ORAL) Take 1 tablet by mouth once daily. - lisinopril (ZESTRIL) 20 mg tablet Take 20 mg by mouth once daily. - lisinopril-hydroCHLOROthiazide (ZESTORETIC) 20-12.5 mg per tablet Take [...] 100 mg by mouth as needed. - jpqfkzggzto-hqvtfqmka-krqxysho (TRELEGY ELLIPTA) 100-62.5-25 mcg inhalation powder Inhale 1 Puff as instructed once daily. Problem List As Of Date 08/07/2024 Noted Resolved Bladder cancer (HCC) [C67.9] 07/26/2024 Encounter Status:Closed by INGRID UGALDE on 08/07/24[facility] HospitalCNNThe [facility] [id number] Visit (HEMASA) MARY DIAZ ([id number]) 1950 [facility] Date Time Provider Department 08/02/24 9:00 AM BRUNO NURSE ENRIQUE TAY During your visit today, we recorded the following information about you: Santosh Del Rio MA 08/02/2024 8:51 AM Signed UA performed as ordered. Santosh Del Rio MA Referring Provider: NORBERTO ANDRADE [[id number]] Allergies As of Date: 08/02/2024 Noted Allergy Reaction CODEINE 03/30/2017 2 - Rash Comments: Agitation, Doesn't work Date Reviewed: 08/02/2024 Reviewed by: Santosh Del Rio MA - Fully Assessed Primary Visit Diagnosis:Malignant neoplasm of urinary bladder, unspecified site (HCC) [C67.9] Order(s):UA DIP, URINE (POC) [[id number]] Order #: [id number]. #:[id number] Prescriptions as of 08/02/2024 - doxazosin (CARDURA) 1 mg tablet Take 1 mg by mouth. - methocarbamol 1,000 mg tablet Take 1,000 mg by mouth as needed (bedtime prn). - mv-min/folic/K1/lycopen/lutein (MEN 50 PLUS MULTIVITAMIN ORAL) Take 1 tablet by mouth once daily. - lisinopril (ZESTRIL) 20 mg tablet Take 20 mg by mouth once daily. - lisinopril-hydroCHLOROthiazide (ZESTORETIC) 20-12.5 mg per tablet Take [...] 100 mg by mouth as needed. - kxceaczkeih-bmgsfgdel-ekoekumd (TRELEGY ELLIPTA) 100-62.5-25 mcg inhalation powder Inhale 1 Puff as instructed once daily. Problem List As Of Date 08/02/2024 Noted Resolved Bladder cancer (HCC) [C67.9] 07/26/2024 Encounter Status:Closed by SANTOSH DEL RIO on 08/02/24[facility] Charles HospitalCNOVSPon 83-45-5900QZFAJJOoggp (SP) Office (HEMASA) MARY DIAZ ([id number]) 1950 [facility] Date Time Provider Department 08/02/24 8:30 AM NORBERTO ANDRADE During your visit today, we recorded the following information about you: Temperature Pulse Respiration Blood pressure 97.5 degrees 80/minute 18/minute 131/79 Weight 88.5 kg Norberto Andrade MD 08/02/2024 9:15 AM Signed PATIENT NAME: Mary Diaz CLINIC NO.: [id number] ATTENDING PHYSICIAN: Norberto Andrade MD DATE OF SERVICE: 08/02/[address] Lionel Whitney [address] [facility] [address] thank you for referring Mary Diaz for [...] atleast 1 fragment without obvious stromal invasion (dental specialist). 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 Urology recommended induction [...] Take 100 mg by mouth as needed. oncvnlcsmaz-kuepauked-ivysbxkx (TRELEGY ELLIPTA) 100-62.5-25 mcg inhalation powder Inhale [...] or lesions. Eyes: Anic (more content not included)...NormalAvita Health SystemvelandUA DIP, URINE (POC)on 86-58-1921HRUTVDZQN UA (POCT)NegativeNegativeUniversity Hospitals Parma Medical Center CLARITY UA (POCT)ClearUniversity Hospitals Parma Medical CenterCOLOR UA (POCT)YellowUniversity Hospitals Parma Medical Center GLUCOSE UA (POCT)NegativeNegative mg/dLUniversity Hospitals Parma Medical CenterHemoglobin Ql (U)Small AbnormalNegativeUniversity Hospitals Parma Medical CenterInterpretation and review of laboratory results AbnormalUniversity Hospitals Parma Medical CenterKETONE UA (POCT)NegativeNegative mg/dLUniversity Hospitals Par[facility] Medical Center LEUKOCYTES UA (POCT)SmallAbnormalNegativeUniversity Hospitals Parma Medical CenterNITRITE UA (POCT) NegativeNegativeUniversity Hospitals Parma Medical CenterPH UA (POCT)5.54.5 - 8.0[facility] Medical CenterProtein Ql (U)TraceAbnormalNegative mg/dLBrecksville VA / Crille HospitalPECIFIC GRAVITY UA (POCT)1.02 1.005 - 1.030[facility] Medical CenterUROBILINOGEN UA (POCT)0.2Normal E.U./dLUniversity Hospitals Parma Medical CenterLocation:[facility], [address] [facility] , [place], [place], [address]WLPIDXURXBERGER HOSPITAL POINT OF CAREUniversity Hospitals Parma Medical CenterCNPNon [id number] Telephone (STACIE) MARY DIAZ ([id number]) 1950 Sue [facility] Date Time Provider Department 08/01/24 FINANCIAL NAVIGATOR ENRIQUE QUINONES During your visit today, we recorded the following information about you: Esther Patterson 08/01/2024 12:10 PM Signed Spoke with patient over the phone today. Patient is active with [place] [employer], LOC 80%, $0 deductible has $0 remaining, $3500 OOP has $3400 remaining. Estimate shows patient financial responsibility is $134.16 for each treatment in 2024 until oop max is reached. Patient stated understanding. Reference #[id number]. There is currently no Bladder funding available, but will add him to my wait list. MyCost completed over the phone. He was very appreciative of my phone call. Allergies As of Date: 08/01/2024 Noted Allergy Reaction CODEINE 03/30/2017 2 - Rash Comments: Agitation, Doesn't work Date Reviewed: 07/19/2024 Reviewed by: Suzanna Waters MA - Fully Assessed Reason for Visit: Benefits Investigation [6453] Cmt: Good Day Mary, I am your [...] feel free to stop in or call [phone] for any questions you may have. Prescriptions as of 08/01/2024 - methocarbamol 1,000 mg tablet Take 1,000 mg by mouth as needed (bedtime prn). - mv-min/folic/K1/lycopen/lutein (MEN 50 PLUS MULTIVITAMIN ORAL) Take 1 tablet by mouth once daily. - lisinopril (ZESTRIL) 20 mg tablet Take 20 mg by mouth once daily. - lisinopril-hydroCHLOROthiazide (ZESTORETIC) 20-12.5 mg per tablet Take [...] 100 mg by mouth as needed. - lwishpgzhww-tbgcqimcj-ajduderl (TRELEGY ELLIPTA) 100-62.5-25 mcg inhalation powder Inhale 1 Puff as instructed once daily. Problem List As Of Date 08/01/2024 Noted Resolved Bladder cancer (HCC) [C67.9] 07/26/2024 Encounter Status:Closed by ESTHER PATTERSON on 08/01/24NormalCTrumbull Memorial Hospital W Auto Differential panel (Bld)on 54-91-0118Idglqufvw (Bld) [#/Vol] 10*3/uLNormal<0.11CTrinity Health System on above:Order Comment: Specimen Type: BLOOD SPECIMENOrdering Facility: [facility] Address:[address] [place], [place] [address]Mkjnzhfle By: #### 20731-7 ####[facility] LABCLIA [id number] [place], [place] [address]Iqobkmjnb/100 WBC (Bld)0.3 %NormalUniversity Hospitals Ahuja Medical Center on above:Order Comment: Specimen Type: BLOOD SPECIMENOrdering Facility: [facility] Address:[address] [place], [place] [address]Performed By: #### 36646-8 ####[facility] LABCLIA [id number] [place], [place] [address]Vtxufrziixrj cell count method Nom (Bld)AutoNormalClevelLakeHealth TriPoint Medical Center on above:Order Comment: Specimen Type: BLOOD SPECIMENOrdering Facility: [facility] Address:[address] [place], [place] [address]Performed By: #### 74065-1 ####[facility] LABIA [id number] [place], [place] [address]Sugfuhxttyq (Bld) [#/Vol]0.13 10*3/uLNormal<0.46[facility] on above:Order Comment: Specimen Type: BLOOD SPECIMENOrdering Facility: [facility] Address:[address] [place], [place] [address]Performed By: #### 66282-1 ####[facility] LABIA [id number] [place], [place] [address]Hmxzmwnyrlk/100 WBC (Bld)1.9 %NormalUniversity Hospitals Ahuja Medical Center on above:Order Comment: Specimen Type: BLOOD SPECIMENOrdering Facility: [facility] Address:[address] [place], [place] [address]Performed By: #### 19978-0 ####[facility] LABIA [id number] [place], [place] [address]Zplmksktjzn distribution width (RBC) [Ratio]13.9 %Normal 11.5-15.0[facility] on above:Order Comment: Specimen Type: BLOOD SPECIMENOrdering Facility: [facility] Address:[address] [place], [place] [address]Performed By: #### 07847-2 ####[facility] LABCLIA [id number] [place] [address] Hematocrit (Bld) [Volume fraction]36.5 %Low39.0-51.0[facility] Comment on above:Order Comment: Specimen Type: BLOOD SPECIMENOrdering Facility: [facility] Address:[address] [place] [address] Performed By: #### 21846-7 ####[facility] LABIA [id number] [place], [place] [address]Phdnslxnop (Bld) [Mass/Vol]12.4 g/dLLow13.0-17.0[facility] on above:Order Comment: Specimen Type: BLOOD SPECIMENOrdering Facility: [facility] Address:[address] [place], [place] [address]Performed By: #### 47941-3 ####[facility] LABIA [id number] [place], [place] [address]Fgyqydyv granulocytes (Bld) [#/Vol]0.05 10*3/uLNormal <0.10[facility] Orthopedic Centerment on above:Order Comment: Specimen Type: BLOOD SPECIMENOrdering Facility: [facility] Address:[address] [place], [place] [address]Performed By: #### 49204-7 ####[facility] LABIA [id number] [place], [place] [address]Vobyhrnf granulocytes/100 WBC (Bld)0.7 %NormalUniversity Hospitals Ahuja Medical Center on above: Order Comment: Specimen Type: BLOOD SPECIMENOrdering Facility: [facility] Address:[address] [place], [place] [address]Performed By: #### 97822- 8 ####[facility] LABIA [id number] [place], [place] [address]Wucfidhmymp (Bld) [#/Vol]1.40 10*3/uLNormal1.00-4.00 [facility] on above:Order Comment: Specimen Type: BLOOD SPECIMENOrdering Facility: [facility] Address:[address] [place], [place] [address]Performed By: #### 93270-2 ####[facility] LABCLIA [id number] [place], [place] [address]Ugvvyuiccdy/100 WBC (Bld)20.7 %NormalUniversity Hospitals Ahuja Medical Center on above:Order Comment: Specimen Type: BLOOD SPECIMENOrdering Facility: [facility] Address:[address] [place], [place] [address]Performed By: #### 55213-4 ####[facility] LABCLIA [id number] [place], [place] [address]ATC (RBC) [Entitic mass]31.2 zoUvztnj66.0-34.0[facility] on above:Order Comment: Specimen Type: BLOOD SPECIMENOrdering Facility: [facility] Address:[address] [place], [place] [address]Performed By: #### 06853-2 ####[facility] LABIA [id number] [place], [place] [address]EKCN (RBC) [Mass/Vol]34.0 g/aDDpjzzp45.5-36.0[facility] on above: Order Comment: Specimen Type: BLOOD SPECIMENOrdering Facility: [facility] Address:[address] [place], [place] [address]Performed By: #### 66297- 8 ####[facility] LABIA [id number] [place], [place] [address]UCS (RBC) [Entitic vol]91.7 pJCpixzo07.0-100.0[facility] on above:Order Comment: Specimen Type: BLOOD SPECIMENOrdering Facility: [facility] Address:[address] [place], [place] [address]Performed By: #### 78857-3 ####[facility] LABCLIA [id number] [place], [place] [address]Fblhtfxrg (Bld) [#/Vol]0.62 10*3/uLNormal<0.87[facility] on above:Order Comment: Specimen Type: BLOOD SPECIMENOrdering Facility: [facility] Address:[address] [place], [place] [address]Performed By: #### 93494- 8 ####[facility] LABCLIA [id number] [place], [place] [address]Sebsexvue/100 WBC (Bld)9.2 %NormalUniversity Hospitals Ahuja Medical Center on above:Order Comment: Specimen Type: BLOOD SPECIMENOrdering Facility: [facility] Address:[address] [place], [place] [address]Performed By: #### 52776-4 ####[facility] LABIA [id number] [place], [place] [address]Ihickafpjhx (Bld) [#/Vol]4.54 10*3/uLNormal1.45-7.50[facility] on above:Order Comment: Specimen Type: BLOOD SPECIMENOrdering Facility: [facility] Address:[address] [place], [place] [address]Performed By: #### 84659-6 ####[facility] LABCLIA [id number] [place], [place] [address]Eruwuwhnmfi/100 WBC (Bld)67.2 %NormalUniversity Hospitals Ahuja Medical Center on above:Order Comment: Specimen Type: BLOOD SPECIMENOrdering Facility: [facility] Address:[address] [place], [place] [address]Performed By: #### 54311-5 ####[facility] LABIA [id number] [place], [place] [address]Xocvngckh RBC (Bld) [#/Vol] 10*3/uLNormal<0.01[facility] on above:Order Comment: Specimen Type: BLOOD SPECIMENOrdering Facility: [facility] Address:[address] [place], [place] [address]Performed By: #### 90040-5 ####[facility] LABCLIA [id number] [place], [place] [address]Lzlsmsavy RBC/100 WBC (Bld) [Ratio]0.0 /100 WBCNormal [facility] on above:Order Comment: Specimen Type: BLOOD SPECIMENOrdering Facility: [facility] Address:[address] [place], [place] [address]Performed By: #### 04430-1 ####[facility] LABCLIA [id number] [place], [place] [address]Wuevddyp mean volume (Bld) [Entitic vol]9.4 fLNormal9.0-12.7CTrinity Health System on above:Order Comment: Specimen Type: BLOOD SPECIMENOrdering Facility: [facility] Address:[address] [place] [address] Performed By: #### 92544-2 ####[facility] LABCLIA [id number] [place], [place] [address]Tmhmwednm (Bld) [#/Vol]209 10*3/wJJzsrgt068-972FxkpavyerUniversity Hospitals Ahuja Medical Center on above:Order Comment: Specimen Type: BLOOD SPECIMENOrdering Facility: [facility] Address:[address] [place], [place] [address]Performed By: #### 34317-6 ####[facility] LABCLIA [id number] [place], [place] [address]LGW (Bld) [#/Vol]3.98 10*6/uLLow4.20-6.00[facility] on above:Order Comment: Specimen Type: BLOOD SPECIMENOrdering Facility: [facility] Address:[address] [place], [place] [address]Performed By: #### 58287-6 ####[facility] LABCLIA [id number] [place], [place] [address]OYR (Bld) [#/Vol]6.76 10*3/uL Normal3.70-11.00[facility] on above:Order Comment: Specimen Type: BLOOD SPECIMENOrdering Facility: [facility] Address:[address] [place], [place] [address]Performed By: #### 66370-4 ####[facility] LABCLIA [id number] [place], [place] [address]FCKNQTEsz 76-10-6842OEPUZVKYtnqz Visit (HEMASA) MARY DIAZ ([id number]) 1950 [facility] Date Time Provider Department 07/26/24 11:00 AM [...] minutes REFERRAL (RECOMMENDATION): N/A Ingrid Ugalde RN Prescription Benefit Specialist Pre Chemo Patient identified by name and date of . YES Confirmed date and time for chemotherapy ? YES Other appointments (labs, imaging) discussed? YES Discussed where to park (fur trimmer), charge for parking NO Discussed where to [...] Ingrid Ugalde RN Referring Provider: NORBERTO ANDRADE [[id number]] Allergies As of Date: 07/26/2024 Noted Allergy Reaction CODEINE 03/30/2017 2 - Rash Comments: Agitation, Doesn't work Date Reviewed: 07/19/2024 Reviewed by: Suzanna Waters MA - Fully Assessed Reason for Visit: First Time Treatment Education [1159] Primary Visit Diagnosis:Malignant neoplasm of urinary bladder, unspecified site (HCC) [C67.9] Prescriptions as of 07/26/2024 - methocarbamol 1, (more content not included)...NormalParkview HealthComprehensive metabolic 2000 panelon 48-79-2081Wvbmpzy [Mass/Vol]4.2 g/dLNormal3.9-4.9CTrinity Health System on above:Order Comment: Specimen Type: BLOOD SPECIMENOrdering Facility: [facility] [facility] Address:[address] [place], [place] [address]Performed By: #### 56936-8 ####[facility] LABCLIA [id number] [place], [place] [address]KVS [Catalytic activity/Vol]55 U/BIlagcz10-093LslsnityoUniversity Hospitals Ahuja [facility] Center on above:Order Comment: Specimen Type: BLOOD SPECIMENOrdering Facility: [facility] Address:[address] [place], [place] [address]Performed By: #### 83357-7 ####[facility] LABCLIA [id number] [place], [place] [address]PGW [Catalytic activity/Vol]17 U/FAexgox29-20VamepgnrrUniversity Hospitals Ahuja Medical Center on above:Order Comment: Specimen Type: BLOOD SPECIMENOrdering Facility: [facility] Address:[address] [place], [place] [address]Performed By: #### 73743- 8 ####[facility] LABCLIA [id number] [place] [address]Qjtre gap [Moles/Vol]8 mmol/LNormal8-15[facility] on above:Order Comment: Specimen Type: BLOOD SPECIMENOrdering Facility: [facility] Address:[address] [place], [place] [address]Performed By: #### 92426-7 ####[facility] LABCLIA [id number] [place], [place] [address]ECD [Catalytic activity/Vol]14 U/SGqlixr97-01LqkdprgznUniversity Hospitals Ahuja [facility] Center on above:Order Comment: Specimen Type: BLOOD SPECIMENOrdering Facility: [facility] Address:[address] [place], [place] [address]Performed By: #### 33327-7 ####[facility] LABCLIA [id number] [facility] [place] [address] Bilirubin [Mass/Vol]0.5 mg/dLNormal0.2-1.3CTrinity [facility] on above:Order Comment: Specimen Type: BLOOD SPECIMENOrdering Facility: [facility] Address:[address] [place], [place] [address]Performed By: #### 22100-6 ####[facility] LABCLIA [id number] [place] [address]Ryxgffo [Mass/Vol]9.5 mg/dLNormal8.5-10.2CTrinity Health System on above:Order Comment: Specimen Type: BLOOD SPECIMENOrdering Facility: [facility] Address:[address] [place], [place] [address]Performed By: #### 63634-3 ####[facility] LABCLIA [id number] [place], [place] [address]Vszcdxxw [Moles/Vol]101 mmol/QRceyeo58-467UfziepgqfUniversity Hospitals Ahuja Medical Center on above: Order Comment: Specimen Type: BLOOD SPECIMENOrdering Facility: [facility] Address:[address] [place], [place] [address]Performed By: #### 14571- 8 ####[facility] LABCLIA [id number] [place], [place] [address]LD3 [Moles/Vol]26 mmol/VSwggfv83-94VimxtomeoUniversity Hospitals Ahuja Medical Center on above:Order Comment: Specimen Type: BLOOD SPECIMENOrdering Facility: [facility] Address:[address] [place], [place] [address]Performed By: #### 14545-7 ####[facility] LABCLIA [id number] [place], [place] [address]Klbxvywggw [Mass/Vol]1.31 mg/dL High0.73-1.22[facility] on above:Order Comment: Specimen Type: BLOOD SPECIMENOrdering Facility: [facility] Address:[address] [place], [place] [address]Performed By: #### 01569-7 ####[facility] LABCLIA [id number] [place] [address] Creatinine and Glomerular filtration rate.predicted panel (S/P/Bld)57 mL/min/1.73m???Low>=60[facility] on above:Order Comment: Specimen Type: BLOOD SPECIMENOrdering Facility: [facility] Address:[address] [place], [place] [address]Result Comment: Estimated Glomerular Filtration Rate (eGFR) is calculated using the 2020 CKD-EPI creatinine equation. This equation utilizes serum creatinine, sex, and age as parameters. The creatinine assay has traceable calibration to isotope dilution-mass spectrometry. Refer to KDIGO guidelines for clinical interpretation. In patients with unstable renal function, e.g. those with acute kidney injury, the eGFR may not accurately reflect actual GFR.Performed By: #### 65830-0 ####[facility] LABCLIA [id number] [place] [address] Glucose [Mass/Vol]108 mg/rXCghd70-76KdasgxdxuUniversity Hospitals Ahuja Medical Center on above: Order Comment: Specimen Type: BLOOD SPECIMENOrdering Facility: [facility] Address:[address] [place], [place] [address]Nyodhk Comment: The [place] Diabetes Association (ADA) provides guidance for cutoff values for fast ing glucose and random glucose. The ADA defines [...] Standards of Medical Care in Diabetes 2016, [place] Diabetes Association. Diabetes Care. 2016.39(Suppl 1).Performed By: #### 75256-5 ####[facility] LABCLIA [id number] [place], [place] [address]Woiqelatk [Moles/Vol]4.5 mmol/LNormal3.7-5.1CTrinity Health System on above:Order Comment: Specimen Type: BLOOD SPECIMENOrdering Facility: [facility] Address:[address] [place], [place] [address]Performed By: #### 27117-6 ####[facility] LABCLIA [id number] [place], [place] [address]Tsnjxcc [Mass/Vol]6.2 g/dLLow6.3-8.0[facility] on above:Order Comment: Specimen Type: BLOOD SPECIMENOrdering Facility: [facility] Address:[address] [place] [address]Tmaellvzu By: #### 21582- 8 ####[facility] LABCLIA [id number] [place], [place] [address]Gmvjuw [Moles/Vol]135 mmol/VWeo046-687PrqpsgivaUniversity Hospitals Ahuja Medical Center on above:Order Comment: Specimen Type: BLOOD SPECIMENOrdering Facility: [facility] Address:[address] [place] [address]Performed By: #### 93968-4 ####[facility] LABCLIA [id number] [place], [place] [address]Vhpn nitrogen [Mass/Vol]17 mg/dLNormal9-24[facility] on above:Order Comment: Specimen Type: BLOOD SPECIMENOrdering Facility: [facility] Address:[facility] [place] [id number] By: #### 39663-8 ####[facility] LABCLIA [id number] [place], [place] [address]GIBIYBif [id number] (SP) Office ([place]) MARY DIAZ ([id number]) 1950 [facility] Date Time Provider Department 07/19/24 11:00 AM NORBERTO ANDRADE During your visit today, we recorded the following information about you: Temperature Pulse Respiration Blood pressure 97.2 degrees 81/minute 18/minute 121/74 Weight 86.7 kg Norberto Andrade MD 07/19/2024 11:42 AM Signed PATIENT NAME: Mary Diaz CLINIC NO.: [id number] ATTENDING PHYSICIAN: Norberto Andrade MD DATE OF SERVICE: July 19, [address] Lionel Whitney [address] [facility] [address] thank you for referring Mary Rogers Emily for an opinion regarding non muscle invasive [...] atleast 1 fragment without obvious stromal invasion (dental specialist). 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 Urology recommended induction [...] atleast 1 fragment without obvious stromal invasion (dental specialist). 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 - Urology recommended induction BCG x 6 treatments. - We will start him on weekly BCG treatments after 2 weeks from today - Check CBC CMP - All his questions answered in detail - F/u in [address] Lionel Whitney [address] [facility] [address] thank you for allowing me to participate in Mary Diaz care, if there are any questions or concerns please do not hesitate to contact me at the number below. I spent a total of 60 pawan (more content not included)...NormalParkview HealthAmbulatory Visit Summaryon 60-62-4980Zxvsjpxyjm Visit SummaryAmbulatory Visit Summary MARY DIAZ :1950 Visit Date:07/12/2024 [...] (diclofenac sodium 75 mg Oral EC Tab) fluticasone/umeclidinium/vilanterol (Trelegy Ellipta 100 mcg-62.5 mcg-25 mcg inhalation powder) liothyronine (liothyronine 25 mcg Tab) pantoprazole (Pantoprazole [address] Tab) Procedures Performed TURBT - Transurethral resection of bladder tumor (07/06/2024), Cystoscopy (04/27/2023), TURBT - Transurethral resection of bladder tumor (01/14/2023), TURBT - Transurethral resection of bladder tumor(02/17/2022), TURBT - Transurethral resection of bladder tumor [...] Lionel WHITNEY MD Where: [facility] [address] [place] [address]- You Need to Schedule the Following Appointments Follow Up with Lionel WHITNEY MD, URL When: Where: [facility] [address] [place] [address]- Medications What How Much When Instructions Unchanged [...] Tablets By Mouth 2 times a day Contactprescribing physician if questions or concerns Unchanged fluticasone/ umeclidinium/ vilanterol (Trelegy Ellipta 100 mcg-62.5 mcg-25 mcg inhalationpowder) 1 Puffs Inhalation Every day Contact prescribing physician if questions or concerns Unchanged liothyronine (liothyronine 25 mcg Tab) Contact prescribing physician if questions or concerns Unchanged pantoprazole (Pantoprazole [address] Tab) 1 Tablets By Mouth Every day Contact prescribingphysician if questions or concerns Allergies codeine (hives/rashes) [...] family history of bladd (more content not included)...[facility] CenterUrology Office/Clinic Noteon [id number] Office/Clinic Note Urology Office/Clinic Note Chief Complaint [...] 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 Mitomycin 03/26/22 and 04/20/22. TURBT 01/14/23 - Neg. Chronic inflammation and extensive necrosis. 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 Reviewed pathology with pt. Intravesical BCG recommended to help prevent tumor recurrence. EORTC 51891 trial showed no difference between 1/3 dose and full- dose BCG in patients with high-risk disease. Pt is aware of the reasoning and is amenable to proceed as discussed. Will likely need to refer [facility] for BCG. Previously received mitomycin which is good for low grade bladder ca but not high grade. Follow up after below or sooner if needed. Pt understands and agrees with plan. -Refer to [facility] for induction BCG x 6 doses. [...] [facility] [address], [place] [address]- Additional Instructions: Refer to [facility] for induction BCG x 6 doses [...] (01/14/2023), TURBT - Transurethral resection of bladder tumor(02/17/2022), TURBT - Transurethral resection of bladder tumor (10/29/2021), Cystourethroscopy with dilation of urethral stricture (10/14/2021), Repair of umbilical hernia (06/22/2017), Arthroscopy of shoulder (05/20/2017), bilateral fifth partial metatarsal osteotomies and Silver Tailor's bunionectomies (08/29/2014), Radical prostatectomy (08/2014), Colonoscopy (05/2014), Complete (more content not included)...[facility] Medical CenterComment on above:Result Comment: Electronically Signed By: Lionel WHITNEY MD\.br\Date and Time Signed: 07/12/24 11:00 EST\.br\Electronically Co-Signed By: Liane Wheeler\.br\Date and Time Co-Signed: 07/12/24 10:59 ESTLon 07-06-2024L Specimen: [id number] Received: 07/07/24 Status: ZACKERY Nails Num: [id number] Spec Type: Surgical Subm Dr: Lionel Whitney MD Tissues: A Urinary Bladder - TUR (BLADDER TUMOR) Procedures: FRANSICO, Gross/Micro L5 Age/ Patient Sex Location Account Attending Physician Mary Diaz 74/M LABELL [id number] Lionel Whitney MD SPEC NUM: [id number] RECD: 07/07/24 STATUS: ZACKERY REBeltran NUM: [id number] JOE: 07/06/24 [facility] DR: Lionel Whitney MD ENTERED: 07/07/[address] [facility] [address]: Melba,Lab SPEC TYPE: Surgical DEPT: KIANA HERNANDEZ ENTERED BY: [id number] RECV BY: [id number] ORDERED: HE, Gross/Micro L5 ORDERED: HE, Gross/Micro L5 Pathological Diagnosis Urinary bladder tumor, TURBT: -A small focus of borderline high-grade papillary urothelial carcinoma in at least 1 fragment, without obvious stromal invasion (dental specialist) -Muscularis propria muscle is also present in [...] submitted in a single cassette. (1, ns, BS25 A) YAMILKA Specimen: [id number] Received: 07/07/24 Status: ZACKERY Nails Num: [id number] Spec Type: Surgical Subm Dr: Lionel Whitney MD Tissues: A Urinary Bladder - TUR (BLADDER TUMOR) Procedures: Kathy BATEMAN/Eligio Ochoa Patient: Mary Diaz [id number] (Continued) Specimen: [id number] Received: 07/07/24 (Continued) Signed (signature on file) Yordy Dixon MD 07/10/24 1627 Specimen: [id number] Received: 07/07/24 Status: ZACKERY Nails Num: [id number] Spec Type: Surgical Subm Dr: Lionel Whitney MD Tissues: A Urinary Bladder - TUR (BLADDER TUMOR) Procedures: Kathy BATEMAN/Micro L5 Patient: Mary Diaz [id number] (Continued) Specimen: [id number] Received: 07/07/24 (Continued) Microscopic Description Microscopic examinations are performed supporting the above interpretation CPT Codes 44222 Specimen: [id number] Received: 07/07/24-1422 Status: ZACKERY Nails Num: [id number] Spec Type: Surgical Subm Dr: Lionel Whitney MD Tissues: A Urinary Bladder - TUR (BLADDER TUMOR) Procedures: HE, Gross/Micro L5 Patient: Mary Diaz [id number] (Continued) Signed (signature on file) Yordy Dixon MD 07/10/[address] [place] [address] Physician GroupTRANSTHORACIC ECHO (TTE) COMPLETE [id number] ECHO (TTE) [address], [address] [place] [address] TRANSTHORACIC ECHOCARDIOGRAM REPORT Patient Name: MARY DIAZ [place] Physician: [id number] Rolly Michaels MD, [facility] Study Date: 06/09/2024 Ordering Provider: [id number] CADY ESPINOSA MRN/PID: [id number] Fellow: Nurse: Date of /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: 8 1950 / 74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 There is no indication of pulmonic valveregurgitation. Pericardium: No pericardial effusion noted. Aorta: The [...] AoV Mean P.0 mmHg (1.7-11.5mmHg) LVOT Max Ortega: 0.89 m/s (<=1.1m/s) AoV VTI: 27.70 cm [...] 30mmHg) PULMONIC VALVE: Normal Ranges: PV Max Ortega: 0.8 m/s (0.6-0.9m/s) PV Max P.3 mmHg PIEDV: 2.07 m/s PADP: 20.1 mmHg [id number] Rolly Michaels MD, FACC Electronically signed on 06/09/2024 at 4:40:40 PM Final [facility]US Heart TransthoracicOrdered By: Rolly Michaels on 30-83-3044Shlofp Valve Area by Continuity of Peak Velocity2.99 uc0KqsylvyqptMartins Ferry Hospital Work Phone: [phone] Valve Area by Continuity of VTI3.72 cm2 [facility] Work Phone: [phone] mn cczj9pqKrAvxhzuaioyThe [facility] Hospital Work Phone: [phone] pk rgub3bpXnMowefoocjbMartins Ferry Hospital Work Phone: [phone] pk vel1.47 m/sUnSelect Medical Specialty [facility], [facility] Work Phone: [phone] A4C EF71.4UnSelect [facility]ty [facility], [facility] Work Phone: [phone] Biplane EF68 %[facility] Work Phone: [phone] EF63 %[facility] Work Phone: [phone] [facility] Work Phone: [phone] diam2.5 [facility] Work Phone: [phone] avg E/e' ratio6.2UnSelect [facility] Work Phone: [phone] E/A ratio0.57[facility] Work Phone: RVSP30.2mmHgUnSelect Medical [facility] Work Phone: UnSelect [facility] Work Phone: US Heart Transthoracicon 06-09-2024 [facility] [place] [address] [facility], [address], [place] [address] TRANSTHORACIC ECHOCARDIOGRAM REPORT Patient Name: MARY DIAZ Reading Physician: [id number] Rolly Michaels MD, [facility] Study Date: 06/09/2024 Ordering Provider: [id number] CADY ESPINOSA MRN/PID: [id number] Fellow: Nurse: Date of /Age: 8 1950 / 74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 There is no indication of pulmonic valveregurgitation. Pericardium: No pericardial effusion noted. 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 Machine: Alyse Arriaga RDCS, T Gender Assigned at Additional Staff: : Height: 182.88 cm Admit Date: Weight: 86.64 kg Admission Status: BSA / BMI: 2.09 m2 / 25.90 Department Location: [facility] kg/m2 [facility] Blood Pressure: 162 /82 mmHg Study Type: TRANSTHORACIC ECHO (TTE) COMPLETE Diagnosis/ICD: Shortness of breath-R06.02 Indication: HTN, Hyperlipidemia, Former Smoker, Asymetrical Upper Extremity Blood Pressures, History of Bladder and Prostate Cancer CPT Codes: Echo Complete w Full Doppler-38812 Study Detail: The following Echo studies were [...] normal. There is no indication of pulmonic valveregurgitation. Pericardium: No pericardial effusion noted. Aorta: The [...] AoV Mean P.0 mmHg (1.7-11.5mmHg) LVOT Max Ortega: 0.89 m/s (<=1.1m/s) AoV VTI: 27.70 cm [...] 30mmHg) PULMONIC VALVE: Normal Ranges: PV Max Ortega: 0.8 m/s (0.6-0.9m/s) PV Max P.3 mmHg PIEDV: 2.07 m/s PADP: 20.1 mmHg [id number] Rolly Michaels MD, FACC Electronically signed on 06/09/2024 at 4:40:40 PM Final [facility] Work Phone: us.doppler Carotid arteries - bilateralon 06-09-[address], Suite [facility], [place] [address] Vascular Lab Report [facility] US CAROTID ARTERY DUPLEX BILATERAL Patient Name: MARY DIAZ Reading Physician: [id number] Rolly Michaels MD, [facility] Study Date: 06/09/2024 Ordering Provider: [id number] CADY ESPINOSA MRN/PID: [id number] Fellow: Technologist: Alyse Arriaga RD, T Date of /Age: 8 1950 / 74 years Technologist 2: Gender: M Admission Status: Outpatient Location Performed: [facility] Diagnosis/ICD: Other specified symptoms and signs involving the circulatory and respiratory systems-R09.89 Indication: Unequal Upper Extremity Blood Pressures, HTN, Hyperlipidemia, Former Smoker, History of Bladder and Prostate Cancer CPT Codes: 05584 Cerebrovascular Carotid Duplex scan complete CONCLUSIONS: Right [...] 69% stenosis of the left proximal internal carotidartery. Laminar flow seen by color Doppler. Left external carotid artery appears patent with no evidence of stenosis. No evidence of hemodynamically significant stenosis of the left common carotid artery. The left vertebral artery is patent with antegrade flow. Imaging & Doppler Findings: Right Plaque Morph: The proximal right internal carotid artery demonstrates irregular and calcifiedplaque. The proximal right external carotid artery demonstrates irregular plaque. The distal right common carotid artery demonstrates calcified plaque. Left Plaque Morph: The proximal left internal carotid artery demonstrates heterogenous, irregular and calcified plaque. The mid left internal carotid artery demonstrates irregular and calcified plaque. The proximal left external carotid artery demonstrates irregular and calcified plaque. The distalleft common carotid artery demonstrates calcified, irregular and [...] cm/s Right Left ICA/CCA Ratio 1.5 0.7 [id number] Rolly Michaels MD, FACC Final Rolly Fleming MD - 06/09/[address], [address] [place] [address] Vascular Lab Report [facility] US CAROTID ARTERY DUPLEX BILATERAL Patient Name: MARY DIAZ Reading Physician: [id number] Rolly Michaels MD, FAC Study Date: 06/09/2024 Ordering Provider: [id number] ESPINOSA MRN/PID: [id number] Fellow: Technologist: Alyse Arriaga RD, [facility] Date of /Age: 8 1950 / 74 years Technologist 2: Gender: M Admission Status: Outpatient Location Performed: [facility] Diagnosis/ICD: Other specified symptoms and signs involving the circulatory and respiratory systems-R09.89 Indication: Unequal Upper Extremity Blood Pressures, HTN, Hyperlipidemia, Former Smoker, History of Bladder and Prostate Cancer CPT Codes: 74120 Cerebrovascular Carotid Duplex scan complete CONCLUSIONS: Right [...] 69% stenosis of the left proximal internal carotidartery. Laminar flow seen by color Doppler. Left external carotid artery appears patent with no evidence of stenosis. No evidence of hemodynamically significant stenosis of the left common carotid artery. The left vertebral artery is patent with antegrade flow. Imaging & Doppler Findings: Right Plaque Morph: The proximal right internal carotid artery demonstrates irregular and calcifiedplaque. The proximal right external carotid artery demonstrates irregular plaque. The distal right common carotid artery demonstrates calcified plaque. Left Plaque Morph: The proximal left internal carotid artery demonstrates heterogenous, irregular and calcified plaque. The mid left internal carotid artery demonstrates irregular and calcified plaque. The proximal left external carotid artery demonstrates irregular and calcified plaque. The distalleft common carotid artery demonstrates calcified, irregular and [...] cm/s Right Left ICA/CCA Ratio 1.5 0.7 [id number] Rolly Michaels MD, FACC Final [facility] Work Phone: Radiology Study observation (narrative)[facility] Work Phone: US.doppler Carotid arteries - bilateralOrdered By: Rolly Michaels on 33-81-8549ZsxrscsyreSelect Medical Specialty [facility], Inc Work Phone: VAS US CAROTID ARTERY DUPLEX BILATERALon 06-09-2024 [facility] US CAROTID ARTERY DUPLEX BILATERALNorth [address], [address] [place] [address] Vascular Lab Report [facility] US CAROTID ARTERY DUPLEX BILATERAL Patient Name: MARY DIAZ Reading Physician: [id number] Rolly Michaels MD, [facility] Study Date: 06/09/2024 Ordering Provider: [id number] CADY GUTIERREZAN MRN/PID: [id number] Fellow: Technologist: Alyse Arriaga RDCS, RVT Date of /Age: 8 1950 / 74 years Technologist 2: Gender: M Admission Status: Outpatient Location Performed: [facility] Diagnosis/ICD: Other specified symptoms and signs involving the circulatory and respiratory systems-R09.89 Indication: Unequal Upper Extremity Blood Pressures, HTN, Hyperlipidemia, Former Smoker, History of Bladder and Prostate Cancer CPT Codes: 05072 Cerebrovascular Carotid Duplex scan complete CONCLUSIONS: Right [...] 69% stenosis of the left proximal internal carotidartery. Laminar flow seen by color Doppler. Left external carotid artery appears patent with no evidence of stenosis. No evidence of hemodynamically significant stenosis of the left common carotid artery. The left vertebral artery is patent with antegrade flow. Imaging & Doppler Findings: Right Plaque Morph: The proximal right internal carotid artery demonstrates irregular and calcifiedplaque. The proximal right external carotid artery demonstrates irregular plaque. The distal right common carotid artery demonstrates calcified plaque. Left Plaque Morph: The proximal left internal carotid artery demonstrates heterogenous, irregular and calcified plaque. The mid left internal carotid artery demonstrates irregular and calcified plaque. The proximal left external carotid artery demonstrates irregular and calcified plaque. The distalleft common carotid artery demonstrates calcified, irregular and [...] cm/s Right Left ICA/CCA Ratio 1.5 0.7 51826 Rolly Michaels MD, FACC Final [facility] HospitalUrine Cytology ([facility])on 78-79-8304Hgvihxqrodc exam Cytology (U) [Interp]Diagnosis InfoInvalid Interpretation [facility] HospitalComment on above:Result Comment: A:Urine,Urine:Voided Interpretation - Occasional atypical urothelial cells with degenerative changes. CPT 07790 MicroScopic Description - Adequacy - Gross Description Site ID:A color Yellow fixative Alcohol Specimen designated Urine received in alcohol preservative and labeled with the patient???s name, consists of 40ml clear yellow fluid. Electronically signed by : on: 05/29/2024 13:16:19Performed By: #### [id number] #### [facility] [address], [place] [address]Yqovd Cytology ([facility])on 55-31-5368NC Method of Extraction VoidedNoCincinnati VA Medical CenterComment on above:Performed By: #### [id number] #### [facility] [address], [place] [address]FK Number of Woxt2Xkvensv Interpretation [facility] HospitalComment on above:Performed By: #### [id number] #### [facility] [address], [place] [address]BZ SpecimenUrineDiley Ridge Medical CenterComment on above:Performed By: #### [id number] #### [facility] [address], [place] [address]KG Type of ServiceTechnical OnlyDiley Ridge Medical CenterComment on above:Performed By: #### [id number] #### [facility] [address], [place] [address]CgkXdpycq Fish and Urine Cyto ([facility])on 31-34-6148NPEGUR & UC Diagnosis InfoInvalid Interpretation [facility] BaltimoreComment on above:Result Comment: Gross Description Electronically signed by : on: 05/15/2024 11:58:17Performed By: #### [id number] #### [facility] [address], [place] [address]Lrpo OR Intraoperative Recordon 43-07-1022Dzdm OR Intraoperative RecordMain OR Intraoperative Record IntraOp Document Type FTURO Summary Primary Physician: Lionel WHITNEY MD Finalized Date/Time: 05/09/24 09:43:24 Pt. Name: MARY DIAZ/Sex: 1950 Male Med Rec #: [id number] Physician: Lionel WHITNEY MD Financial #: [id number] Pt. Type: O Room/Bed: / Admit/Disch: 05/09/24 [...] Nanci Bellamy Role Performed Surgeon - Primary Market Development Analyst - Primary Scrub - Primary Time In [...] Participants Fitz ZELAYA, Frances Applicable) Carol Bellamy, Safia PICKER, Nanci A Time Out Complete 05/09/24 09:33:00 [...] Signatures Signed By: Frances Byrnes RN 05/09/24 09:43NoCincinnati VA Medical CenterMain OR Preoperative Recordon 74-82-4102Wnzf OR Preoperative RecordMain OR Preoperative Record Holding Area Document Type FTURO Summary Primary Physician: Lionel WHITNEY MD Finalized Date/Time: 05/09/24 09:28:03 Pt. Name: MARY DIAZ/Sex: 1950 Male Med Rec #: [id number] Physician: Lionel WHITNEY MD Financial #: [id number] Pt. Type: O Room/Bed: / Admit/Disch: 05/09/24 [...] or her perioperative plan of care The patient'sright to privacy is maintained Surgery Checklist FTURO Entry 1 Patient Birthday, ID Band Procedure Surgical Consent, With Identification: Check, Patient Verification: Patient Participation NPO after Midnight: n/a Personal Items: Glasses Personal Items b/l hearing aides Limitations: up ad abiodun Comment: Complaints of Pain: No Skin Integrity Intact, [place], Warm, & Dry Vitals - EU Blood Pressure 190/90 Pulse 78 bpm Respirations 18 br/min SPO2 96 % Additional FISH RN Reviewed Yes Specimens Collected Last Modified By: Frances Byrnes RN 05/09/24 09:28:01 Finalized By: Frances Byrnes RN Document Signatures Signed By: Esther Boyd LPN 05/09/24 09:10 Frances Byrnes RN 05/09/24 09:28NormSelect [facility] Specialty [facility] Operative Reporton 39-42-1355Lztszukjl ReportOperative Report Patient: MARY DIAZ Age: 74 years [...] discharged home with antibiotic coverage, Follow up arranged.Diley Ridge Medical CenterComment on above:Result Comment: Electronically Signed By: Lionel WHITNEY MD\.br\Date and Time Signed: 05/09/24 09:48 ESTUroVysion Fish and Urine Cyto ([facility])on 90-91-2859EVLB Method of ExtractionVoidedNoCincinnati VA Medical CenterComment on above: Performed By: #### [id number] #### [facility] [address] [place] [address]ZUBL Number of Qrzy0Wpizljz Interpretation CodeLancaster Municipal HospitalComment on above:Performed By: #### [id number] #### [facility] [address] [place] [address]EVNS SpecimenUrineNoCincinnati VA Medical CenterComment on above:Performed By: #### [id number] #### [facility] [address] [place] [address]KIHX Type of ServiceTechnical OnlyNoCincinnati VA Medical CenterComment on above:Performed By: #### [id number] #### [facility] [address] [place] [address]DDK 12 [place] 46-97-5363DxyvulcudcMartins Ferry Hospital Work Phone: cervical spine wo/w conon 58-86-1929GO cervical spine wo/w [facility] [place] [address] MRI Report Signed Patient: Mary Diaz MR#: [id number] : 1950 Acct:[id number] Age/Sex: 73 / M ADM Date: 08/28/23 [...] Lupe Campos M.D.08/29/2023 1:06 PM Dictation Location: [place] [address] Transcribed By: [facility] 08/29/23 1306 Dictated By: Lupe Campos MD 08/29/23 1254 Signed By: 08/29/23 1306NoUNC Health Blue Ridge - Valdese Physician GroupISTAT XRay CREon 73-05-1170NLXYI GFR> 60.0NoUNC Health Blue Ridge - Valdese Physician GroupComment on above:Result Comment: PERFORMED BY: [place] [address] PATHOLOGIST QUARTER SEAMER JENARO FLOREZ M.D.Performed By: #### ISCRE #### [place] [address] USANo Panel InformationOrdered By: Esther Lowery on 81-15-0287Grryesb Estimated GFR (eGFR)> 60.0[facility] Whole blood creatinine measurementOrdered By: Esther Lowery on 08-28-2023 Creatinine [Mass/Vol]1.2 mg/dLNormal0.6-1.3FMemorial Hospital Comment on above:ER/ESD physician is notified/shown all ISTAT results.Critical values may be confirmed by laboratorytesting ifdeemed necessary by ER attending doctor.Result Comment: ER/ESD physician is notified/shown all ISTAT results. Critical values may be confirmed by laboratory testing if deemed necessary by ER attending doctor.Performed By: #### ISCRE #### [place] [address] USAXR cervical spine LAT/FLX/EXTon 04-21-4190KN cervical spine LAT/FLX/EXTMERCY HEALTH [place] [address] XRay Report Signed Patient: Mary Diaz MR#: [id number] : 1950 Acct:[id number] Age/Sex: 73 / M ADM Date: 08/12/23 Loc: XD Room: Type: [facility] Attending Dr: Esther HILTON Copies to: LIDA [...] Leahy DO 08/12/23 1528 Signed By: 08/12/[address] 1529[facility] Physician GroupXR lumbar spine 6V w bendingon 60-36-5753TC lumbar spine 6V w bendingMERCY HEALTH WEST [facility] [place] [address] [place] [address] XRay Report Signed Patient: Mary Diaz MR#: [id number] : 1950 Acct:[id number] Age/Sex: 73 / M ADM Date: 08/12/23 Loc: XD Room: Type: [facility] Attending Dr: Esther HILTON Copies to: LIDA [...] 3:28 PM Dictation Location: RADIO-PC-14 Transcribed By: NGA 08/12/23 1528 Dictated By: Kenny Leahy DO 08/12/23 1526 Signed By: 08/12/23 1528[facility] Physician GroupXR CSPINE MIN 4 VIEWSon 88-91-0848GB CSPINE MIN 4 VIEWSEXAMINATION: XR CSPINE MIN 4 VIEWS HISTORY: Cervical [...] Electronically authenticated by: ALLI CORTES Date: 2022-10-23 11:53[facility] Medical CenterXR LSPINE W_OBLS AND FLEX_EXTon 56-76-5971CJ LSPINE W_OBLS AND FLEX_EXTEXAM: XR LSPINE W_OBLS AND FLEX_EXT HISTORY: Low back pain COMPARISON: None. TECHNIQUE: 2 views Findings/impression: Retrolisthesis of L2 over L3 by 4 mm. Multilevel endplate degenerative changes, disc disease, and anterior spurring. Calcified atherosclerotic disease of aorta. No acute fracture. Electronically authenticated by: JAMAICA GONZALEZ Date: 2022-10-23 13:18[facility] Medical CenterBNPon 82-47-9738Qyulakvrhay peptide B (Bld) [Mass/Vol]844.0 pg/mLNormal<=900.0[facility] Tiffin HospitalComment on above:Performed By: #### CVDTBH #### [facility] [address] [place] [address] Dr. Johnna Lara AUTO DIFFon 57-62-2637PFOK #0.0 103/ulNormal0.0-0.1[facility] Tiffin HospitalComment on above:Performed By: #### CBC #### [facility] [address] [place] [address] Dr. Johnna DixonBasophils/100 WBC (Bld)0.0 %Critically low0.2-2.0The [facility] Community HospitalComment on above:Performed By: #### CBC #### [facility] [address] [place] [address] Dr. Johnna Bustamante #0.0 103/ulNormal0.0-0.7The [facility] HospitalComment on above: Performed By: #### CBC #### [facility] [address] [place] [address] Dr. Johnna Pichardoosinophils/100 WBC (Bld)0.0 %Critically low0.9-7.0The [facility] HospitalComment on above:Performed By: #### CBC #### [facility] [address] [place] [address] Dr. Johnna Pichardorythrocyte distribution width (RBC) [Ratio]13.9 %Ogarwd84.0-15.0 The [facility] HospitalComment on above:Performed By: #### CBC #### [facility] [address] [place] [address] Dr. Johnna DixonHematocrit (Bld) [Volume fraction]33.6 %Critically low42.0-54.0 [facility] on above:Performed By: #### CBC #### [facility] [address] [place] [address] Dr. Johnna DixonHemoglobin (Bld) [Mass/Vol]11.1 g/dLCritically low14.0-18.0The [facility] HospitalComment on above:Performed By: #### CBC #### [facility] [address] [place] [address] Dr. Johnna Larson #0.03 10e3/ulNormal0.00-0.03The [facility] HospitalCommunson healthcare cadillac hospital on above:Performed By: #### CBC #### [facility] [address] [place] [address] Dr. Johnna Larson %0.5 %Normal0.0-0.5The [facility] HospitalComment on above: Performed By: #### CBC #### [facility] [address] [place] [address] [address] Johnna Ruelas #0.7 103/ulCritically low1.2-3.8The [facility] Comment on above:Performed By: #### CBC #### [facility] [address] [address] [address] Johnna Montemayormphocytes/100 WBC (Bld)11.5 %Critically low20.5-60.0The [facility] HospitalComment on above:Performed By: #### CBC #### [facility] [address] [place] [address] [address] Johnna Garcia DIFF REQNONormalThe [facility] HospitalComment on above: Performed By: #### CBC #### [facility] [address] [place] [address] Dr. Johnna Marquez (RBC) [Entitic mass]31.0 epLqzskk17.9-34.0The [facility] HospitalComment on above:Performed By: #### CBC #### [facility] [address] [place] [address] Dr. Johnna Marquez (RBC) [Mass/Vol]33.0 g/kLOggxnd58.9-35.2The [facility] HospitalComment on above:Performed By: #### CBC #### [facility] [address] [place] [address] Dr. Johnna Marquez (RBC) [Entitic vol]93.9 eUEhyklt35.0-94.0The [facility] HospitalComment on above:Performed By: #### CBC #### [facility] [address] [place] [address] Dr. Johnna Vela #0.3 103/ulNormal0.3-0.8The [facility] HospitalComment on above:Performed By: #### CBC #### [facility] [address] [place] [address] Dr. Johnna Noocytes/100 WBC (Bld)4.5 %Normal1.7-12.0[facility] Comment on above:Performed By: #### CBC #### [facility] [address] [place] [address] [address] Johnna Kaur #5.0 103/ulNormal1.4-6.5The [facility] HospitalComment on above:Performed By: #### CBC #### [facility] [address] [address] [address] Johnna Maurerutrophils/100 WBC (Bld)83.5 %Critically high43.0-75.0The [facility] HospitalComment on above:Performed By: #### CBC #### [facility] [address] [address] [address] Johnna DixonPlatelet mean volume (Bld) [Entitic vol]10.3 fLNormal9.5-13.5The [facility] HospitalComment on above:Performed By: #### CBC #### [facility] [address] [place] [address] Dr. Johnna DixonPLT184 103/ybTdckvt906-366Hxj [facility] HospitalComment on above: Performed By: #### CBC #### [facility] [address] [address] [address] Johnna DixonRBC3.58 106/ulCritically low4.70-6.10The [facility] HospitalComment on above:Performed By: #### CBC #### [facility] [address] [place] [address] Dr. Johnna DixonWBC6.0 103/ulNormal4.0-11.0The [facility] HospitalComment on above: Performed By: #### CBC #### [facility] [address] [place] [address] Dr. Johnna DixonPROF 14(COMP METB)on 38-43-2291Hpucxwg [Mass/Vol]2.7 g/dL Critically low3.4-5.0The [facility] HospitalComment on above:Performed By: #### CVDTBH #### [facility] [address] [place] [address] Dr. Johnna DixonAlbumin/Globulin [Mass ratio]0.9 {ratio}NormalThe Saint Paul HospitalComment on above:Performed By: #### CVDTBH #### [facility] [address] [address] [address] Johnna Pierce [Catalytic activity/Vol]32 U/LCritically gil57-058Yea [facility] HospitalComment on above:Performed By: #### CVDTBH #### [facility] [address] [place] [address] [address] Johnna Saha [Catalytic activity/Vol]19 U/OQrtbib24-72Cio [facility] HospitalComment on above:Performed By: #### CVDTBH #### [facility] [address] [place] [address] Dr. Johnna Hdezon gap [Moles/Vol]14.0 mmol/LNormalThe [facility] Comment on above:Performed By: #### CVDTBH #### [facility] [address] [place] [address] Dr. Johnna DixonAST [Catalytic activity/Vol]12 U/LCritically htw48-23Cgi [facility] HospitalComment on above:Performed By: #### CVDTBH #### [facility] [address] [place] [address] Dr. Johnna DixonBilirubin [Mass/Vol]0.6 mg/dLNormal0.2-1.0The [facility] Comment on above:Performed By: #### CVDTBH #### [facility] [address] [place] [address] Dr. Johnna DixonCalcium [Mass/Vol]8.3 mg/dLCritically low8.5-10.1[facility]iff[facility] HospitalComment on above:Performed By: #### CVDTBH #### [facility] [address] [place] [address] Dr. Johnna DixonChloride [Moles/Vol]107 mmol/IEeyjzy14-914Blo [facility] Comment on above:Performed By: #### CVDTBH #### [facility] [address] [place] [address] Dr. Johnna DixonCO2 [Moles/Vol]24.9 mmol/LWnwgla74.0-32.0The [facility] Comment on above:Performed By: #### CVDTBH #### [facility] [address] [place] [address] Dr. Johnna DixonCreatinine [Mass/Vol]1.20 mg/dLNormal0.70-1.30The [facility] HospitalComment on above:Performed By: #### CVDTBH #### [facility] [address] [place] [address] Dr. Johnna PichardoGFR-AF MALDIVIAN>60Normal>=60The [facility] HospitalComment on above:Performed By: #### CVDTBH #### [facility] [address] [place] [address] Dr. Johnna PichardoGFR-NON AF JCVCBPWS26 mL/min/1.43k3Lkmhrj>=60The [facility] HospitalComment on above:Performed By: #### CVDTBH #### [facility] [address] [place] [address] Dr. Johnna DixonGlobulin (S) [Mass/Vol]2.9 g/dLNormalThe [facility] HospitalComment on above:Performed By: #### CVDTBH #### [facility] [address] [place] [address] Dr. Johnna DixonGlucose [Mass/Vol]153 mg/dLCritically rhnz31-100Eqo [facility] HospitalComment on above:Performed By: #### CVDTBH #### [facility] [address] [place] [address] Dr. Johnna DixonPotassium [Moles/Vol]3.9 mmol/LNormal3.5-5.1The [facility] Comment on above:Performed By: #### CVDTBH #### [facility] [address] [place] [address] Dr. Johnna DixonProtein [Mass/Vol]5.6 g/dLCritically low6.4-8.2The [facility] HospitalComment on above:Performed By: #### CVDTBH #### [facility] [address] [place] [address] Dr. Johnna Calzadadium [Moles/Vol]142 mmol/MXhjrkr066-543Rmc [facility] Comment on above:Performed By: #### CVDTBH #### [facility] [address] [place] [address] Dr. Johnna Gerber nitrogen [Mass/Vol]14.0 mg/dLNormal7.0-18.0The [facility] HospitalComment on above:Performed By: #### CVDTBH #### [facility] [address] [place] [address] Dr. Johnna Gerber nitrogen/Creatinine [Mass ratio]11.7 mg/mgNormalThe [facility] HospitalComment on above:Performed By: #### CVDTBH #### [facility] [address] [place] [address] Dr. Johnna Lara AUTO DIFFon 91-75-9986HJTS #0.0 103/ulNormal0.0-0.1The [facility] HospitalComment on above:Performed By: #### SPUTGS #### [facility] [address] [place] [address] Dr. Johnna DixonBasophils/100 WBC (Bld)0.2 %Normal0.2-2.0[facility] Comment on above:Performed By: #### SPUTGS #### [facility] [address] [place] [address] Dr. Johnna Bustamante #0.0 103/ulNormal0.0-0.7The [facility] HospitalComment on above: Performed By: #### SPUTGS #### [facility] [address] [place] [address] Dr. Johnna Pichardoosinophils/100 WBC (Bld)0.2 %Critically low0.9-7.0The [facility] HospitalComment on above:Performed By: #### SPUTGS #### [facility] [address] [place] [address] Dr. Johnna Pichardorythrocyte distribution width (RBC) [Ratio]14.1 %Isvpjm57.0-15.0 The [facility] HospitalComment on above:Performed By: #### SPUTGS #### [facility] [address] [place] [address] Dr. Johnna DixonHematocrit (Bld) [Volume fraction]39.9 %Critically low42.0-54.0 The [facility] HospitalComment on above:Performed By: #### SPUTGS #### [facility] [address] [place] [address] Dr. Johnna DixonHemoglobin (Bld) [Mass/Vol]12.8 g/dLCritically low14.0-18.0The [facility] HospitalComment on above:Performed By: #### SPUTGS #### [facility] [address] [place] [address] Dr. Johnna Larson #0.01 10e3/ulNormal0.00-0.03The [facility] HospitalComment on above:Performed By: #### SPUTGS #### [facility] [address] [place] [address] Dr. Johnna Larson %0.2 %Normal0.0-0.5The [facility] HospitalComment on above: Performed By: #### SPUTGS #### [facility] [address] [place] [address] Dr. Johnna Ruelas #0.7 103/ulCritically low1.2-3.8The [facility] Comment on above:Performed By: #### SPUTGS #### [facility] [address] [place] [address] Dr. Johnna Montemayormphocytes/100 WBC (Bld)14.3 %Critically low20.5-60.0The [facility] HospitalComment on above:Performed By: #### SPUTGS #### [facility] [address] [place] [address] Dr. Johnna OswaldUAL DIFF REQNONormalThe [facility] HospitalComment on above: Performed By: #### SPUTGS #### [facility] [address] [place] [address] Dr. Johnna Khan (RBC) [Entitic mass]30.7 veJqzbva24.9-34.0The [facility] HospitalComment on above:Performed By: #### SPUTGS #### [facility] [address] [place] [address] Dr. Johnna Marquez (RBC) [Mass/Vol]32.1 g/aUNmopnh36.9-35.2The [facility] HospitalComment on above:Performed By: #### SPUTGS #### [facility] [address] [place] [address] Dr. Johnna Stiles (RBC) [Entitic vol]95.7 fLCritically high80.0-94.0The [facility] HospitalComment on above:Performed By: #### SPUTGS #### [facility] [address] [place] [address] Dr. Johnna Vela #0.6 103/ulNormal0.3-0.8The [facility] HospitalComment on above:Performed By: #### SPUTGS #### [facility] [address] [place] [address] Dr. Johnna Noocytes/100 WBC (Bld)12.5 %Critically high1.7-12.0The [facility] HospitalComment on above:Performed By: #### SPUTGS #### [facility] [address] [place] [address] Dr. Johnna Kaur #3.6 103/ulNormal1.4-6.5The [facility] HospitalComment on above:Performed By: #### SPUTGS #### [facility] [address] [place] [address] Dr. Johnna Maurerutrophils/100 WBC (Bld)72.6 %Ciljoh20.0-75.0The [facility] HospitalComment on above:Performed By: #### SPUTGS #### [facility] [address] [place] [address] Dr. Johnna Voss mean volume (Bld) [Entitic vol]9.5 fLNormal9.5-13.5The [facility] HospitalComment on above:Performed By: #### SPUTGS #### [facility] [address] [place] [address] Dr. Johnna DixonPLT213 103/iwBpoltm195-177Xwo [facility] HospitalComment on above: Performed By: #### SPUTGS #### [facility] [address] [place] [address] Dr. Johnna DixonRBC4.17 106/ulCritically low4.70-6.10The [facility] HospitalComment on above:Performed By: #### SPUTGS #### [facility] [address] [place] [address] Dr. Johnna DixonWBC5.0 103/ulNormal4.0-11.0The [facility] HospitalComment on above: Performed By: #### SPUTGS #### [facility] [address] [place] [address] Dr. Johnna Mitchell BLOODon 65-98-1323Ifaytqwzmop examination of blood, cultureCulture Observations: NO GROWTH AT 5 DAYS.NormalThe [facility] HospitalComment on above:Performed By: #### BLDCX2 #### [facility] [address] [place] [address] Dr. Johnna DixonMicroscopic examination of blood, cultureCulture Observations: NO GROWTH AT 5 DAYS.NormalThe [facility] HospitalComment on above:Performed By: #### SPUTGS #### [facility] [address] [place] [address] Dr. Johnna Mitchell SPUTUMon 94-33-9795NAGSYCG SPUTUMCulture Observations: NORMAL RESPIRATORY JONATAN.NormalThe [facility] HospitalComment on above:Performed By: #### SPUTGS #### [facility] [address] [place] [address] Dr. Johnna DixonCovid-19 PCR (CVDTB)on 27-76-1217UEXB-CoV-2 (COVID-19) RNA REX+probe Ql (Unsp spec)Not detectedNormalNOT DETECTEDThe [facility] Comment on above:Result Comment: This test is not yet approved or cleared by the [place] FDA. When there are no FDA-approved or cleared tests available, and other criteria are met, FDA can make tests available under an emergency access mechanism called an Emergency Use Authorization (EUA). The EUA for this test is supported by the [employer] of Health and Human Service's (HHS's) declaration that circumstances exist to justify the emergency use of in vitro diagnostics for the detection and/or diagnosis of the virus that causes COVID- 19. This EUA will remain in effect (meaning [...] of clinical signs and symptoms consistent with SARS-CoV-2.Performed By: #### CVDTBH #### [facility] Laboratory [address] [place] [address] Dr. Johnna DixonLACTATE/LACTIC ACIDon [id number] [Moles/Vol]1.2 mmol/L Normal0.4-2.0[facility]iffin HospitalComment on above:Performed By: #### LACT #### [facility] [address] [place] [address] Dr. Johnna DixonLactate [Moles/Vol]2.4 mmol/LCritically high0.4-2.0[facility] Tiffin HospitalComment on above:Performed By: #### LACT #### [facility] [address] [place] [address] Dr. Johnna DixonPROF CHEM 8 (BAS METB)on 86-55-1304Ojvny gap [Moles/Vol]12.6 mmol/LNormalMercy Health Tiffin HospitalComment on above:Performed By: #### BMP #### [facility] [address] [place] [address] Dr. Johnna DixonCalcium [Mass/Vol]8.9 mg/dLNormal8.5-10.1[facility] Comment on above:Performed By: #### BMP #### [facility] [address] [place] [address] Dr. Johnna DixonChloride [Moles/Vol]106 mmol/NYimxxv62-431Ouw [facility] Comment on above:Performed By: #### BMP #### [facility] [address] [address] [address] Johnna DixonCO2 [Moles/Vol]25.8 mmol/FItnhlq05.0-32.0The [facility] Comment on above:Performed By: #### BMP #### [facility] [address] [address] [address] Johnna DixonCreatinine [Mass/Vol]1.41 mg/dLCritically high0.70-1.30The [facility] HospitalComment on above:Performed By: #### BMP #### [facility] [address] [address] [address] Oropeza ChangEGFR-AF MALDIVIAN>60Normal>=60The [facility] HospitalComment on above:Performed By: #### BMP #### [facility] [address] [address] [address] Johnna PichardoGFR-NON AF JNVWWWSG91 mL/min/1.13u8Wrqytjhdth low>=60The [facility] HospitalComment on above:Performed By: #### BMP #### [facility] [address] [address] [address] Johnna DixonGlucose [Mass/Vol]111 mg/dLCritically wpyj32-719Enu [facility] HospitalComment on above:Performed By: #### BMP #### [facility] [address] [address] [address] Johnna DixonPotassium [Moles/Vol]3.4 mmol/LCritically low3.5-5.1The [facility] HospitalComment on above:Performed By: #### BMP #### [facility] [address] [address] [address] Johnna DixonSodium [Moles/Vol]141 mmol/HIrtpsa301-441Xry [facility] Comment on above:Performed By: #### BMP #### [facility] [address] [address] [address] Johnna DixonUrea nitrogen [Mass/Vol]17.0 mg/dLNormal7.0-18.0The [facility] HospitalComment on above:Performed By: #### BMP #### [facility] [address] [address] [address] Johnna Gerber nitrogen/Creatinine [Mass ratio]12.1 mg/mgCincinnati Children's Hospital Medical CenterComment on above:Performed By: #### BMP #### [facility] [address] [address] [address] Johnna RodriguezUTUM GRAM STAINon 65-89-8987MMNZJKSOTmlmjbHzlJoint Township District Memorial Hospital on above:Performed By: #### SPUTGS #### [facility] [address] [address] [address] Johnna GreenPHTHEROIDSCincinnati Children's Hospital Medical CenterComment on above:Performed By: #### SPUTGS #### [facility] [address] [address] [address] Johnna PichardoPITHELIALS<25C[facility] Hospital Medical CenterComment on above: Performed By: #### SPUTGS #### [facility] [address] [address] [address] Johnna DixonFUNGAL ELEMENTSCincinnati Children's Hospital Medical CenterComment on above: Performed By: #### SPUTGS #### [facility] [address] [address] [address] Johnna Stover NEG BACILLIFEUniversity Hospitals St. John Medical CenterComment on above: Performed By: #### SPUTGS #### [facility] [address] [address] [address] Johnna Stover NEG DIPPLOCOCCIParkwood Hospital HospitalComment on above: Performed By: #### SPUTGS #### [facility] [address] [address] [address] Johnna Stover POS BACILLICincinnati Children's Hospital Medical CenterComment on above: Performed By: #### SPUTGS #### [facility] [address] [address] [address] Johnna Stover POSITIVE COCCIFEUniversity Hospitals St. John Medical CenterComment on above:Performed By: #### SPUTGS #### [facility] [address] [place] [address] Dr. Johnna DixonWBC (Bld) [#/Vol]10*3/uLNormSelect Medical Cleveland Clinic Rehabilitation Hospital, Edwin ShawComment on above:Performed By: #### SPUTGS #### [facility] [address] [place] [address] Dr. Johnna DixonSYMPTOMATIC COVID-19 ANTIGENon 34-35-2507IHP StatementSEE BELOW NormalThe [facility] HospitalCommunson healthcare cadillac hospital on above:Result Comment: This test has not been FDA [...] declaration is terminated or authorization is revoked sooner.Performed By: #### CVDAGS #### [facility] [address] [place] [address] Dr. Johnna Paez-CoV-2 (COVID-19) RNA REX+probe Ql (Unsp spec)NegativeNormal NEGATIVEThe [facility] HospitalComment on above:Performed By: #### CVDAGS #### [facility] [address] [place] [address] Dr. Johnna DixonXR CHEST 1 Von 21-48-0518RP CHEST 1 VEXAMINATION: XR CHEST 1 V HISTORY: COUGH COMPARISON: [...] Electronically authenticated by: SOCORRO SERRANO Date: 2022-10-05 11:44NoChildren's Hospital of ColumbusUS SINGLE QUAD RT UPPERon [id number] SINGLE QUAD RT UPPER EXAM: US SINGLE [...] Electronically authenticated by: SOCORRO HUFFMAN Date: 2022-09-24 09:46NoChildren's Hospital of ColumbusAMYLASEon 97-22-9233Shoudlu [Catalytic activity/Vol]78 U/L Vszhyv41-304Mkl [facility] HospitalComment on above:Performed By: #### CVDTBH #### [facility] [address] [address] [address] Johnna Lara AUTO DIFFon 73-47-1586JAIG #0.0 103/ulNormal0.0-0.1The [facility] HospitalComment on above:Performed By: #### CVDTBH #### [facility] [address] [address] [address] Johnna Parrsophils/100 WBC (Bld)0.5 %Normal0.2-2.0The [facility] Comment on above:Performed By: #### CVDTBH #### [facility] [address] [address] [address] Johnna Bustamante #0.1 103/ulNormal0.0-0.7The [facility] HospitalComment on above: Performed By: #### CVDTBH #### [facility] [address] [place] [address] Dr. Johnna Pichardoosinophils/100 WBC (Bld)1.9 %Normal0.9-7.0[facility] Comment on above:Performed By: #### CVDTBH #### [facility] [address] [place] [address] Dr. Johnna Pichardorythrocyte distribution width (RBC) [Ratio]14.5 %Pzgfzp58.0-15.0 The [facility] HospitalComment on above:Performed By: #### CVDTBH #### [facility] [address] [place] [address] Dr. Johnna DixonHematocrit (Bld) [Volume fraction]39.1 %Critically low42.0-54.0 [facility]iffin HospitalComment on above:Performed By: #### CVDTBH #### [facility] [address] [place] [address] Dr. Johnna DixonHemoglobin (Bld) [Mass/Vol]12.8 g/dLCritically low14.0-18.0[facility] HospitalComment on above:Performed By: #### CVDTBH #### [facility] [address] [place] [address] Dr. Johnna Larson #0.05 10e3/ulCritically high0.00-0.03The [facility] Comment on above:Performed By: #### CVDTBH #### [facility] [address] [place] [address] Dr. Johnna Larson %0.7 %Critically high0.0-0.5ThRiverside Methodist HospitalComment on above:Performed By: #### CVDTBH #### [facility] [address] [place] [address] Dr. Johnna LakeH #2.0 103/ulNormal1.2-3.8The [facility] HospitalComment on above:Performed By: #### CVDTBH #### [facility] [address] [place] [address] Dr. Johnna Montemayormphocytes/100 WBC (Bld)27.4 %Vwsduk67.5-60.0The [facility] HospitalComment on above:Performed By: #### CVDTBH #### [facility] [address] [place] [address] Dr. Johnna OswaldUAL DIFF REQNONormalThe [facility] HospitalComment on above: Performed By: #### CVDTBH #### [facility] [address] [place] [address] Dr. Johnna Marquez (RBC) [Entitic mass]31.3 mvKhqycw52.9-34.0The [facility] HospitalComment on above:Performed By: #### CVDTBH #### [facility] [address] [place] [address] Dr. Johnna Marquez (RBC) [Mass/Vol]32.7 g/sFLmsgpg32.9-35.2The [facility] HospitalComment on above:Performed By: #### CVDTBH #### [facility] [address] [place] [address] Dr. Johnna Marquez (RBC) [Entitic vol]95.6 fLCritically high80.0-94.0The [facility] HospitalComment on above:Performed By: #### CVDTBH #### [facility] [address] [place] [address] Dr. Johnna Vela #0.5 103/ulNormal0.3-0.8The [facility] HospitalComment on above:Performed By: #### CVDTBH #### [facility] [address] [place] [address] Dr. Johnna Noocytes/100 WBC (Bld)6.9 %Normal1.7-12.0The [facility] Comment on above:Performed By: #### CVDTBH #### [facility] [address] [place] [address] Dr. Johnna Kaur #4.7 103/ulNormal1.4-6.5The [facility] HospitalComment on above:Performed By: #### CVDTBH #### [facility] [address] [place] [address] Dr. Johnna DixonNeutrophils/100 WBC (Bld)62.6 %Kynovy55.0-75.0The [facility] HospitalComment on above:Performed By: #### CVDTBH #### [facility] [address] [place] [address] Dr. Johnna DixonPlatelet mean volume (Bld) [Entitic vol]9.3 fLCritically low 9.5-13.5The [facility] HospitalComment on above:Performed By: #### CVDTBH #### [facility] [address] [place] [address] Dr. Johnna DixonPLT235 103/yqLxwzyx322-143Qpx [facility] HospitalComment on above: Performed By: #### CVDTBH #### [facility] [address] [place] [address] Dr. Johnna DixonRBC4.09 106/ulCritically low4.70-6.10The [facility] HospitalComment on above:Performed By: #### CVDTBH #### [facility] [address] [place] [address] Dr. Johnna DixonWBC7.4 103/ulNormal4.0-11.0The [facility] HospitalComment on above: Performed By: #### CVDTBH #### [facility] [address] [place] [address] Dr. Johnna DixonLIPASEleanne 88-14-0531Hrylws [Catalytic activity/Vol]114.0 U/LNormal 73.0-393.0The [facility] HospitalComment on above:Performed By: #### CVDAGS #### [facility] [address] [place] [address] Dr. Johnna Hernandez PROFILEleanne 92-41-0536Yjqqkmd [Mass/Vol]3.9 g/dLNormal3.4-5.0 The [facility] HospitalComment on above:Performed By: #### CVDTBH #### [facility] [address] [address] [address] Johnna DixonAlbumin/Globulin [Mass ratio]1.6 {ratio}NormalThe [facility] HospitalComment on above:Performed By: #### CVDTBH #### [facility] [address] [address] [address] Johnna BarneyP [Catalytic activity/Vol]59 U/VWehhvo73-705Vmv [facility] HospitalComment on above:Performed By: #### CVDTBH #### [facility] [address] [address] [address] Johnna BarneyT [Catalytic activity/Vol]23 U/FVrjjio78-44Efv [facility] HospitalComment on above:Performed By: #### CVDTBH #### [facility] [address] [place] [address] Dr. Johnna DixonAST [Catalytic activity/Vol]8 U/LCritically hky07-24Ugm [facility] HospitalCommunson healthcare cadillac hospital on above:Performed By: #### CVDTBH #### [facility] [address] [place] [address] Dr. Johnna ArboledaI, CONJUGATED0.1 mg/dLNormal0.0-0.2The [facility] Comment on above:Performed By: #### CVDTBH #### [facility] [address] [place] [address] Dr. Johnna Arboledairubin [Mass/Vol]0.3 mg/dLNormal0.2-1.0The [facility] Comment on above:Performed By: #### CVDTBH #### [facility] [address] [place] [address] Dr. Johnna DixonGlobulin (S) [Mass/Vol]2.5 g/dLNormalThe [facility] HospitalComment on above:Performed By: #### CVDTBH #### [facility] [address] [place] [address] Dr. Johnna DixonProtein [Mass/Vol]6.4 g/dLNormal6.4-8.2The [facility] Comment on above:Performed By: #### CVDTBH #### [facility] [address] [address] [address] Johnna DixonPROF CHEM 8 (BAS METB)on 41-40-0195Egdvf gap [Moles/Vol]13.4 mmol/LNormalMercy Health Tiffin HospitalComment on above:Performed By: #### CVDTBH #### [facility] [address] [address] [address] Johnna DixonCalcium [Mass/Vol]8.9 mg/dLNormal8.5-10.1The [facility] Comment on above:Performed By: #### CVDTBH #### [facility] [address] [place] [address] Dr. Johnna DixonChloride [Moles/Vol]106 mmol/KBythkb25-270Fbw [facility] Comment on above:Performed By: #### CVDTBH #### [facility] [address] [place] [address] Dr. Johnna DixonCO2 [Moles/Vol]25.6 mmol/WMsvrze50.0-32.0[facility] Comment on above:Performed By: #### CVDTBH #### [facility] [address] [place] [address] Dr. Johnna DixonCreatinine [Mass/Vol]1.21 mg/dLNormal0.70-1.30The [facility] HospitalComment on above:Performed By: #### CVDTBH #### [facility] [address] [place] [address] Dr. Johnna PichardoGFR-AF MALDIVIAN>60Normal>=60The [facility] HospitalComment on above:Performed By: #### CVDTBH #### [facility] [address] [place] [address] Dr. Johnna PichardoGFR-NON AF UTUPEEFY59 mL/min/1.09h3Ubtkbvkiok low>=60The [facility] HospitalComment on above:Performed By: #### CVDTBH #### [facility] [address] [place] [address] Dr. Johnna DixonGlucose [Mass/Vol]115 mg/dLCritically rsiv16-670Efq [facility] HospitalComment on above:Performed By: #### CVDTBH #### [facility] [address] [address] [address] Johnna DixonPotassium [Moles/Vol]4.0 mmol/LNormal3.5-5.1The [facility] Comment on above:Performed By: #### CVDTBH #### [facility] [address] [place] [address] Dr. Johnna DixonSodium [Moles/Vol]141 mmol/DRfyxgo411-913Ukh [facility] Comment on above:Performed By: #### CVDTBH #### [facility] [address] [place] [address] Dr. Johnna DixonUrea nitrogen [Mass/Vol]19.0 mg/dLCritically high7.0-18.0[facility]iff[facility] HospitalComment on above:Performed By: #### CVDTBH #### [facility] [address] [place] [address] Dr. Johnna Gerber nitrogen/Creatinine [Mass ratio]15.7 mg/mgNormalThe [facility] HospitalComment on above:Performed By: #### CVDTBH #### [facility] [address] [place] [address] Dr. Johnna Ricardo 10-81-5703Avzxsivaez [Mass/Vol]1.31 mg/dLCritically high0.70-1.30The [facility] HospitalComment on above:Performed By: #### CREA #### [facility] [address] [place] [address] Dr. Johnna PichardoGFR-AF MALDIVIAN>60Normal>=60The [facility] HospitalComment on above:Performed By: #### CREA #### [facility] [address] [place] [address] Dr. Johnna PichardoGFR-NON AF BWBOHLAS50 mL/min/1.66c0Odxowdkjoe low>=60[facility]iff[facility] HospitalComment on above:Performed By: #### CREA #### [facility] [address] [place] [address] Dr. Johnna Russo 49-11-9998LAX NECK WO W CONEXAMINATION: CTA NECK WO W CON HISTORY: Carotid [...] Electronically authenticated by: ALLI CORTES Date: 2022-08-04 14:04[facility] CAROTID ART BILon [id number] CAROTID ART BILEXAMINATION: US CAROTID ART SREEKANTH HISTORY: Essential hypertension [...] Electronically authenticated by: ALLI CORTES Date: 2022-07-28 12:00[facility] Medical CenterXR KNEE RT 4V or >on 77-15-4925JF KNEE RT 4V or >EXAM: XR KNEE RT 4V or > HISTORY: Pain of right knee joint COMPARISON: None. TECHNIQUE: 4 views of the right knee were obtained. FINDINGS/IMPRESSION: 1. There is no evidence of acute fracture or subluxation. 2. Mild tricompartmental osteoarthritis is seen as demonstrated by joint space narrowing with marginal spurring. 3. Chondrocalcinosis. Electronically authenticated by: DEBORAH ZARAGOZA Date: 2022-06-30 17:38NoChildren's Hospital of ColumbusXR RIBS RT PA Fab [id number] RIBS RT PA CHEXAMINATION: XR RIBS RT PA CH HISTORY: Fracture [...] Electronically authenticated by: SOCORRO SERRANO Date: 2022-05-25 14:51NoChildren's Hospital of ColumbusXR RIBS RT PA Fab [id number] RIBS RT PA CH Begin Addendum #1 [...] with right basilar atelectasis and small pleural effusionCincinnati Children's Hospital Medical CenterCT CHEST WO CONon 26-68-9200JX CHEST WO CONCT CHEST WO CON CLINICAL: History of fall. [...] Electronically authenticated by: SOCORRO BANSAL Date: 2022-04-18 16:17NoChildren's Hospital of ColumbusCULTURE URINEon 31-96-2739CMYGAFZ URINECulture Observations: NO GROWTH.NormalThe [facility] HospitalComment on above:Performed By: #### SPUTGS #### [facility] [address] [address] [address] Johnna Elena-Leeanne Positive/NegativeOrdered By: Lionel Whitney on 80-66-5247CRCL-CoV-2 (COVID-19) N gene REX+probe Ql (Resp)NegativeNegative TrihealthComment on above:Testing for SARS-CoV-2 by RT-PCR This test was developed and its performance characteristics determined by [employer] and validated at the [facility]. This test has not been FDA cleared [...] of time the declaration that circumstances exist ju stifying the authorization of the emergency use of in vitro diagnostic tests for detection of SARS-CoV-2 virus and/or diagnosis of COVID-19 infection under section 564(b)(1) of the Act, 21 U.S.C. 360bbb-3(b)(1), unless the authorization is terminated or revoked sooner.Activated partial thromboplastin time (aPTT) in platelet poor plasma by coagulation aOrdered By: Lionel Whitney on 02-06-2022 aPTT Coag (PPP) [Time]34.8 s25.1-36.5FMemorial HospitalBasophils Auto (Bld) [#/Vol]Ordered By: Lionel Whitney on 26-46-4296Oyujcttpv (Bld) [#/Vol]0.0 10*3/uL0.0-0.2FMemorial HospitalBasophils/100 WBC Auto (Bld)Ordered By: Lionel Whitney on 21-60-8079Iywnmlcdq/100 WBC (Bld)0.8 %. [facility]healthBlood hemoglobin measurement (mass/volume) Ordered By: Lionel Whitney on 74-80-4863Pwvtionlli (Bld) [Mass/Vol]13.2 g/dL 13.0-17.0TrihealthBlood leukocytes automated count (number/volume)Ordered By: Lionel Whitney on 87-40-5417YGE (Bld) [#/Vol]5.7 10*3/uL4.5-11.0TrihealthCreatinine and Glomerular filtration rate.predicted panel (S/P/Bld)Ordered By: Lionel Whitney on 28-13-7522Bysqybvnnt [Mass/Vol]1.21 mg/dL0.64-1.27TrihealthEosinophils Auto (Bld) [#/Vol]Ordered By: Lionel Whitney on 02-06-2022 Eosinophils (Bld) [#/Vol]0.1 10*3/uL0.0-0.45[facility] Eosinophils/100 WBC Auto (Bld)Ordered By: Lionel Whitney on 02-06-2022 Eosinophils/100 WBC (Bld)1.7 %.TrihealthErythrocyte distribution width Auto (RBC) [Ratio]Ordered By: Lionel Whitney on 02-06-2022 Erythrocyte distribution width (RBC) [Ratio]14.2 %12.0-14.8TrihealthEstimated glomerular filtration rate (GFR) non- Ordered By: Lionel Whitney on 54-91-1830MSA/1.73 sq M.predicted among non-blacks MDRD (S/P/Bld) [Vol rate/Area]59 mL/MinTrihealth Hematocrit Auto (Bld) [Volume fraction]Ordered By: Lionel Whitney on 02-06-2022 Hematocrit (Bld) [Volume fraction]40.8 %38.8-50.0[facility]healthLaboratory - CoagulationOrdered By: Lionel Whitney on 18-27-2617CD Coag (PPP) [Time]11.0 s9.0-12.9[facility]healthLaboratory - Hematology and Cell countsOrdered By: Lionel Whitney on 05-78-8941Yyccyrzsk RBC/100 WBC (Bld) [Ratio]0.1 %0-0.5FMemorial HospitalLymphocytes Auto (Bld) [#/Vol]Ordered By: Lionel Whitney on 35-27-2563Gjskcgtvddk (Bld) [#/Vol]1.6 10*3/uL1.00-4.8TrihealthLymphocytes/100 WBC Auto (Bld)Ordered By: Loinel Whitney on 72-52-7764Vsjijjdavyj/100 WBC (Bld)27.4 %.TrihealthMCH Auto (RBC) [Entitic mass]Ordered By: Lionel Whitney on 75-74-6228FVE (RBC) [Entitic mass]29.7 pg27.5-35.2FMemorial HospitalMCHC Auto (RBC) [Mass/Vol]Ordered By: Lionel Whitney on 90-88-4406DCYX (RBC) [Mass/Vol]32.4 g/dL32.5-35.6FMemorial HospitalMCV Auto (RBC) [Entitic vol]Ordered By: Lionel Whitney on 72-77-0515JXW (RBC) [Entitic vol]91.6 fL83.5-101TrihealthMonocytes Auto (Bld) [#/Vol]Ordered By: Lionel Whitney on 68-49-5809Otdggsvpl (Bld) [#/Vol]0.5 10*3/uL0.0-0.8TrihealthMonocytes/100 WBC Auto (Bld)Ordered By: Lionel Whitney on 08-75-3978Zitbhefxw/100 WBC (Bld)8.7 %. TrihealthNeutrophils Auto (Bld) [#/Vol]Ordered By: Lionel Whitney on 43-78-0350Cnejrhzinrp (Bld) [#/Vol]3.5 10*3/uL1.8-7.7FMemorial HospitalNeutrophils/100 WBC Auto (Bld)Ordered By: Lionel Whitney on 87-48-2225Xacpayqatsi/100 WBC (Bld)61.4 %.[facility] No Panel InformationOrdered By: Lionel Whitney on 07-86-7424Tmmihdvag GFR ()> 60 mL/MinTrihealthComment on above: GFR estimated reference range: According to KDOQI guidelines, <60 ml/min/1.73m2 is sufficient todiagnose a patient with chronic kidney disease.Pharmacy Creatinine Clearance (ChemN/AFMemorial HospitalPlatelet mean volume Auto (Bld) [Entitic vol]Ordered By: Lionel Whitney on 74-36-6770Eklsgmxy mean volume (Bld) [Entitic vol]8.4 fL6.6-10.1FMemorial Hospital Platelet poor plasma international normalized ratio (INR) by coagulation assay (relatOrdered By: Lionel Whitney on 49-35-4591FPY Coag (PPP) [Relative time]1.0 {INR}TrihealthComment on above:INR Therapeutic Range A) Pre- and Peroperative OAT started two weeks before surgery. NOT HIP SURGERY: 1.5 - 2.5 HIP SURGERY: 2 - 3 B) Primary and secondary prevention of venous THROMBOSIS: 2 - 3 C) Active venous thrombosis, pulmonary embolism and prevention of recurrent venous thrombosis: 2 - 3 D) Prevention of arterial thromboembolism including patients with mechanical heart valves: 3 - 4.5Platelets Auto (Bld) [#/Vol]Ordered By: Lionel Whitney on 83-09-3477Qsxmacwpk (Bld) [#/Vol]248 10*3/cM627-860KfegebgboTrihealthRBC Auto (Bld) [#/Vol]Ordered By: Lionel Whitney on 41-68-5423OZM (Bld) [#/Vol]4.45 10*6/uL3.90-5.60Ohio[facility] Mansfield Hospitalerum or plasma calcium measurement (mass/volume)Ordered By: Lionel Whitney on 13-05-0782Iwgpohm [Mass/Vol]9.7 mg/dL8.2-10.2FHighland District Hospitalerum or plasma chloride measurement (moles/volume) Ordered By: Lionel Whitney on 71-12-5307Asjpjmur [Moles/Vol]99 mmol/L95-114 [facility] Hospitalerum or plasma glucose measurement (mass/volume)Ordered By: Lionel Whitney on 99-73-6980Ccvnsgv [Mass/Vol]99 mg/dL 70-100TrihealthComment on above:ADA recommended reference range Random Glucose Reference Range is dependent on time and content of last meal. Glucose of more than 200 mg/dL in a nonstressed, ambulatory subject supports the diagnosis of Diabetes Mellitus.Serum or plasma potassium measurement (moles/volume)Ordered By: Lionel Whitney on 21-36-2594Gpxzfiuhn [Moles/Vol]4.4 mmol/L3.5-5.1FHighland District Hospitalerum or plasma sodium measurement (moles/volume)Ordered By: Lionel Whitney on 86-94-3380Vfknas [Moles/Vol]135 mmol/N183-684SdmbuyyobOhioHealth Mansfield Hospitalerum or plasma total carbon dioxide measurement (moles/volume)Ordered By: Lionel Whitney on 32-45-0985OR6 [Moles/Vol]26.2 mmol/L22.0-30.0[facility]field Hospitalerum or plasma urea nitrogen measurement (mass/volume)Ordered By: Lionel Whitney on 02-06-2022 Urea nitrogen [Mass/Vol]20 mg/dL9-23TrihealthCOVID-19 Positive/NegativeOrdered By: Lionel Whitney on 24-17-5678FEWS-CoV-2 (COVID-19) N gene REX+probe Ql (Resp)NegativeNegativeTrihealth Comment on above:Testing for SARS-CoV-2 by RT-PCR This test was developed and its performance characteristics determined by [employer] ([employer]) and validated at the [facility]. This test has not been FDA cleared [...] of time the declaration that circumstances exist ju stifying the authorization of the emergency use of in vitro diagnostic tests for detection of SARS-CoV-2 virus and/or diagnosis of COVID-19 infection under section 564(b)(1) of the Act, 21 U.S.C. 360bbb-3(b)(1), unless the authorization is terminated or revoked sooner.Activated partial thromboplastin time (aPTT) in platelet poor plasma by coagulation aOrdered By: Lionel Whitney on 10-17-2021 aPTT Coag (PPP) [Time]36.2 s25.1-36.5FMemorial HospitalBasophils Auto (Bld) [#/Vol]Ordered By: Lionel Whitney on 73-17-0745Plfljorft (Bld) [#/Vol]0.0 10*3/uL0.0-0.2FMemorial HospitalBasophils/100 WBC Auto (Bld)Ordered By: Lionel Whitney on 57-12-8751Tgpeyartl/100 WBC (Bld)0.6 % [facility]healthBlood hemoglobin measurement (mass/volume) Ordered By: Lionel Whitney on 12-19-1412Gmyyfuerrt (Bld) [Mass/Vol]13.6 g/dL 13.0-17.0TrihealthBlood leukocytes automated count (number/volume)Ordered By: Lionel Whitney on 82-05-5091SQU (Bld) [#/Vol]5.9 10*3/uL4.5-11.0TrihealthCreatinine and Glomerular filtration rate.predicted panel (S/P/Bld)Ordered By: Lionel Whitney on 91-95-8556Zsnzxgpnsl [Mass/Vol]0.96 mg/dL0.64-1.27TrihealthEosinophils Auto (Bld) [#/Vol]Ordered By: Lionel Whitney on 10-17-2021 Eosinophils (Bld) [#/Vol]0.1 10*3/uL0.0-0.45[facility] Eosinophils/100 WBC Auto (Bld)Ordered By: Lionel Whitney on 10-17-2021 Eosinophils/100 WBC (Bld)2.0 %TrihealthErythrocyte distribution width Auto (RBC) [Ratio]Ordered By: Lionel Whitney on 10-17-2021 Erythrocyte distribution width (RBC) [Ratio]14.5 %12.0-14.8TrihealthEstimated glomerular filtration rate (GFR) non- Ordered By: Lionel Whitney on 63-65-8725JGE/1.73 sq M.predicted among non-blacks MDRD (S/P/Bld) [Vol rate/Area]> 60 mL/MinTrihealth Hematocrit Auto (Bld) [Volume fraction]Ordered By: Lionel Whitney on 10-17-2021 Hematocrit (Bld) [Volume fraction]41.5 %38.8-50.0TrihealthLaboratory - CoagulationOrdered By: Lionel Whitney on 87-93-3765YM Coag (PPP) [Time]11.0 s9.0-12.9TrihealthLaboratory - Hematology and Cell countsOrdered By: Lionel Whitney on 15-51-6813Bvfhoenjx RBC/100 WBC (Bld) [Ratio]0.0 %0-0.5FMemorial HospitalLymphocytes Auto (Bld) [#/Vol]Ordered By: Lionel Whitney on 31-07-3511Jswtdferswg (Bld) [#/Vol]1.6 10*3/uL1.00-4.8TrihealthLymphocytes/100 WBC Auto (Bld)Ordered By: Lionel Whitney on 96-90-2145Hucybhfurwo/100 WBC (Bld)26.8 %[facility] Auto (RBC) [Entitic mass]Ordered By: Lionel Whitney on 38-89-7802SFT (RBC) [Entitic mass]29.3 pg27.5-35.2FMemorial HospitalMCHC Auto (RBC) [Mass/Vol]Ordered By: Lionel Whitney on 41-48-8724OCZH (RBC) [Mass/Vol]32.7 g/dL32.5-35.6FMemorial HospitalMCV Auto (RBC) [Entitic vol]Ordered By: Lionel Whitney on 93-17-6708ZRV (RBC) [Entitic vol]89.8 fL83.5-101TrihealthMonocytes Auto (Bld) [#/Vol]Ordered By: Lionel Whitney on 13-31-2690Gkocuzhhw (Bld) [#/Vol]0.6 10*3/uL0.0-0.8TrihealthMonocytes/100 WBC Auto (Bld)Ordered By: Lionel Whitney on 87-78-8321Asxhjafls/100 WBC (Bld)10.6 % TrihealthNeutrophils Auto (Bld) [#/Vol]Ordered By: Lionel Whitney on 54-89-1131Czymgmuozeo (Bld) [#/Vol]3.5 10*3/uL1.8-7.7FMemorial HospitalNeutrophils/100 WBC Auto (Bld)Ordered By: Lionel Whitney on 57-80-0959Zwuugkkezje/100 WBC (Bld)60.0 %TrihealthNo Panel InformationOrdered By: Lionel Whitney on 80-58-5513Dkkrzqdff GFR ()> 60 mL/MinTrihealthComment on above:GFR estimated reference range: According to KDOQI guidelines, <60 ml/min/1.73m2 is sufficient todiagnose a patient with chronic kidney disease.Pharmacy Creatinine Clearance (ChemN/AFMemorial HospitalPlatelet mean volume Auto (Bld) [Entitic vol]Ordered By: Lionel Whitney on 74-49-4666Hjketzvx mean volume (Bld) [Entitic vol]8.3 fL6.6-10.1FMemorial HospitalPlatelet poor plasma international normalized ratio (INR) by coagulation assay (relatOrdered By: Lionel Whitney on 37-86-6368LDE Coag (PPP) [Relative time]1.0 {INR}TrihealthComment on above:INR Therapeutic Range A) Pre- and Peroperative OAT started two weeks before surgery. NOT HIP SURGERY: 1.5 - 2.5 HIP SURGERY: 2 - 3 B) Primary and secondary prevention of venous THROMBOSIS: 2 - 3 C) Active venous thrombosis, pulmonary embolism and prevention of recurrent venous thrombosis: 2 - 3 D) Prevention of arterial thromboembolism including patients with mechanical heart valves: 3 - 4.5Platelets Auto (Bld) [#/Vol]Ordered By: Lionel Whitney on 36-66-6619Onvdokbib (Bld) [#/Vol]249 10*3/cS844-399SlanbmlwwTrihealthRBC Auto (Bld) [#/Vol]Ordered By: Lionel Whitney on 45-89-3987ZYD (Bld) [#/Vol]4.62 10*6/uL3.90-5.60[facility] Hospitalerum or plasma calcium measurement (mass/volume)Ordered By: Lionel Whitney on 25-82-8397Hqdgjwv [Mass/Vol]9.7 mg/dL8.2-10.2FHighland District Hospitalerum or plasma chloride measurement (moles/volume) Ordered By: Lionel Whitney on 93-30-6267Aoftkfpq [Moles/Vol]101 mmol/L95-114 [facility] Hospitalerum or plasma glucose measurement (mass/volume)Ordered By: Lionel Whitney on 50-61-4306Vguabbg [Mass/Vol]87 mg/dL 70-100TrihealthComment on above:ADA recommended reference range Random Glucose Reference Range is dependent on time and content of last meal. Glucose of more than 200 mg/dL in a nonstressed, ambulatory subject supports the diagnosis of Diabetes Mellitus.Serum or plasma potassium measurement (moles/volume)Ordered By: Lionel Whitney on 99-98-4069Itbmlfegf [Moles/Vol]4.4 mmol/L3.5-5.1FHighland District Hospitalerum or plasma sodium measurement (moles/volume)Ordered By: Lionel Whitney on 39-39-2842Slqqqf [Moles/Vol]136 mmol/J632-176CwxcpmyxtOhioHealth Mansfield Hospitalerum or plasma total carbon dioxide measurement (moles/volume)Ordered By: Lionel Whitney on 33-25-3818UQ0 [Moles/Vol]25.6 mmol/L22.0-30.0[facility] Mansfield Hospitalerum or plasma urea nitrogen measurement (mass/volume)Ordered By: Lionel Whitney on 10-17-2021 Urea nitrogen [Mass/Vol]18 mg/dL9-23[facility] Vital Signs Date TimeVital SignValuePerforming EflfzrihhRflazncl28-77-3289 13:26-0400Body pwbadcfsflm29.7 [degF]Norberto Andrade MD Work Phone: cDoctors HospitalDrjqhf32-67-3429 13:26-0400Body ovsuxp88.4 kgAdaveronica Andrade MD Work Phone: cDoctors HospitalRgazwe49-52-0449 13:26-0400Diastolic blood utabybbv25 mm[Hg]Norberto Andrade MD Work Phone: cDoctors HospitalEjgnbq16-94-4877 13:26-0400Heart rate74 /min Norberto Andrade MD Work Phone: cDoctors HospitalSvzgzx21-08-0074 13:26-0400Respiratory rate 18 /minNorberto Andrade MD Work Phone: cDoctors HospitalXylmko45-49-0860 13:26-8234PmR8% (BldA) [Mass fraction]99 %Norberto Andrade MD Work Phone: cDoctors HospitalJvanvd74-01-5110 13:26-0400Systolic blood emxciodu347 mm[Hg]Norberto Andrade MD Work Phone: cDoctors HospitalLdgiep37-30-0673 09:56-0400Body zywnis308.9 cmMamark Bustillo PA Work Phone: [facility] HospitalOccbpzjasf72-17-1723 09:56-0400Body mass index (BMI) [Ratio]25.77 kg/s6Ipqenukmark Bustillo PA Work Phone: [facility] HospitalPiwskubius54-46-8596 09:56-0400Body jeoynh44.18 kgMattedgar Bustillo PA Work Phone: [facility] HospitalGehtfnmopp00-46-2581 12:52-0400Body temperature 97.59 [degF]Norberto Andrade MD Work Phone: YDoctors HospitalUlueni71-08-4998 12:52-0400Body frcipy92.6 kgNorberto Andrade MD Work Phone: cDoctors HospitalDllcrc24-63-5733 12:52-0400Diastolic blood kvgjznpu85 mm[Hg]Norberto Andrade MD Work Phone: cDoctors HospitalFvanro48-68-0337 12:52-0400Heart rate73 /min Norberto Andrade MD Work Phone: cgrant hospitaland Rxzqrq99-16-7994 12:52-0400Respiratory rate 18 /minNorberto Andrade MD Work Phone: c[facility] hospitaland Ckkenh91-95-3204 12:52-3626FqR1% (BldA) [Mass fraction]97 %Norberto Andrade MD Work Phone: cgrant hospitaland Yugokr12-50-7616 12:52-0400Systolic blood mm[Hg]Norberto Andrade MD Work Phone: cDoctors HospitalXhpqjm80-17-7408 13:01-0400Body temperature 97.81 [degF]Chair Rolando Work Phone: [facility]03-12-2025 13:01-0400Diastolic blood amahqmjc09 mm[Hg]Chair Issaquena Work Phone: [facility]03-12-2025 13:01-0400Heart rate65 /min Chair Rolando Work Phone: [facility]03-12-2025 13:01-0400Respiratory rate 18 /minChair Issaquena Work Phone: [facility]03-12-2025 13:01-4435EyW4% (BldA) [Mass fraction]96 %Chair Issaquena Work Phone: [facility]03-12-2025 13:01-0400Systolic blood zcrrdxeu371 mm[Hg]Chair Rolando Work Phone: [facility]03-05-2025 13:08-0500Body temperature 97.5 [degF]Chair Issaquena Work Phone: [facility]03-05-2025 13:08-0500Diastolic blood wtgyktna94 mm[Hg]Chair Issaquena Work Phone: [facility]03-05-2025 13:08-0500Heart rate56 /min Chair Rolando Work Phone: [place] [address]-05-2025 13:08-0500Respiratory rate 16 /minChair Issaquena Work Phone: [facility]03-05-2025 13:08-7925YkA0% (BldA) [Mass fraction]99 %Chair Issaquena Work Phone: [facility]03-05-2025 13:08-0500Systolic blood ftbapqug492 mm[Hg]Chair Rolando Work Phone: [place] [address]-26-2025 13:09-0500Body temperature 98.2 [degF]Norberto Andrade MD Work Phone: [place] [address]-26-2025 13:09-0500Body iivtdy92.5 kgNorberto Andrade MD Work Phone: 1(482)367-[address] [place] [address]-26-2025 13:09-0500Diastolic blood mjnmkbue11 mm[Hg]Norberto Andrade MD Work Phone: 1(563)703-[address] [place] [address]-26-2025 13:09-0500Heart rate86 /min Norberto Andrade MD Work Phone: 1(456)410-[address] [place] [address]-26-2025 13:09-0500Respiratory rate 16 /minNorberto Andrade MD Work Phone: 1(545)580-[address] [place], [place] [address]-26-2025 13:09-4043MgK1% (BldA) [Mass fraction]97 %Norberto Andrade MD Work Phone: cDoctors HospitalJdrcck79-73-8265 13:09-0500Systolic blood eqhobqsq069 mm[Hg]Norberto Andrade MD Work Phone: cDoctors HospitalRnproo48-17-4435 13:00-0500Body temperature 97.81 [degF]Chair Rolando Work Phone: [place] [address]-26-2025 13:00-0500Diastolic blood mynxyyfg09 mm[Hg]Chair Rolando Work Phone: 1(305) 122-158643 [address]26-2025 13:00-0500Heart rate90 /min Chair Rolando Work Phone: 1(747) 316-341943 [address]26-2025 13:00-1531BwB2% (BldA) [Mass fraction]98 %Chair Rolando Work Phone: 1(707) 648-127443 [address]26-2025 13:00-0500Systolic blood udjdniuh012 mm[Hg]Chair Rolando Work Phone: [place] [address]-19-2025 13:15-0500Diastolic blood nmzcuoqc46 mm[Hg]Chair Rolando Work Phone: [facility] CenterComment on above:Pt reports he is asymptomatic and sees wxtfnvmcyx84-24-5433 13:15-0500Systolic blood riyjgbus481 mm[Hg]Chair Marshall Work Phone: [facility] CenterComment on above:Pt reports he is asymptomatic and sees kpvresgcrr99-78-7278 13:10-0500Body oormqyypfgx02.9 [degF] Chair Rolando Work Phone: [facility]02-19-2025 13:10-0500Heart rate87 /min Chair Rolando Work Phone: [place] [address]-19-2025 13:10-0500Respiratory rate 18 /minChair Rolando Work Phone: [place] [address]-19-2025 13:10-3805SpR9% (BldA) [Mass fraction]97 %Chair Marshall Work Phone: [facility]02-12-2025 08:33-0500Body temperature 97.5 [degF]Norberto Andrade MD Work Phone: cDoctors HospitalBclteb64-30-1358 08:33-0500Body heecjn17.5 kgNorberto Andrade MD Work Phone: cDoctors HospitalLwgwmc77-34-5292 08:33-0500Diastolic blood mm[Hg]Norberto Andrade MD Work Phone: cDoctors HospitalYcuftu28-48-0426 08:33-0500Heart rate80 /min Norberto Andrade MD Work Phone: cDoctors HospitalBbikop86-21-6289 08:33-0500Respiratory rate 18 /minNorberto Andrade MD Work Phone: cDoctors HospitalDehdhh56-12-2204 08:33-7389QxA3% (BldA) [Mass fraction]96 %Norberto Andrade MD Work Phone: cDoctors HospitalQxrqgv87-11-1625 08:33-0500Systolic blood cnkstpif516 mm[Hg]oNrberto Andrade MD Work Phone: 1(000)502-[address] [place], [place] 05[address]-29-2025 10:43-0500Body temperature 97.2 [degF]Norberto Andrade MD Work Phone: 1(375)625-[address] [place], [place] [address]-29-2025 10:43-0500Body oouhmr07.7 kgAdaveronica Andrade MD Work Phone: 1(809)504-[address] [place], [place] 7273901-29-2025 10:43-0500Diastolic blood wgilvieq09 mm[Hg]Norberto Andrade MD Work Phone: 1(516)675-[address] [place], [place] 7273901-29-2025 10:43-0500Heart rate81 /min Norberto Andrade MD Work Phone: 1(647)977-[address] [place], [place] [address]3901-29-2025 10:43-0500Respiratory rate 18 /minNorberto Andrade MD Work Phone: 1(668)020-[address] [place], [place] [address]-29-2025 10:43-4573YfM9% (BldA) [Mass fraction]97 %Norberto Andrade MD Work Phone: cDoctors HospitalRtynlk52-00-4924 10:43-0500Systolic blood oohpwcmc727 mm[Hg]Norberto Andrade MD Work Phone: cDoctors HospitalUvpvcf89-60-0611 11:17-0500Diastolic blood zzleveyy75 mm[Hg]Cady Espinosa MD Work Phone: [facility]01-27-2025 11:17-0500 Systolic blood kuforgnn359 mm[Hg]Cady Espinosa MD Work Phone: [facility]01-27-2025 10:51-0500 Body .9 cmCady Espinosa MD Work Phone: [facility]01-27-2025 10:51-0500 Body mass index (BMI) [Ratio]26.5 kg/q2DmvlwnCady Espinosa MD Work Phone: [phone]01-27-2025 10:51-0500 Body oqocvl42.63 kgCady Espinosa MD Work Phone: [address] [place], [place] 49[address]01-27-2025 10:51-0500 Heart rate72 /Kathryn Espinosa MD Work Phone: [address] [place], [place] 4934801-22-2025 09:50-0500 Blood Pressure LocationPatrick WHITNEY [facility]01-22-2025 09:50-0500Diastolic blood plfgncde54 mm[Hg]Lionel WHITNEY [facility]01-22-2025 09:50-0500Heart rate70 /minPatrick WHITNEY [facility]01-22-2025 09:50-0500Respiratory rate16 /minPatrick WHITNEY [facility]01-22-2025 09:50-0500Systolic blood xcimlzfy814 mm[Hg]Lionel WHITNEY [facility] [place] 272271-18-2024 11:49-0500Diastolic blood khchaeot36 mm[Hg]Cady Espinosa MD Work Phone: [facility]11-18-2024 11:49-0500 Systolic blood mm[Hg]Cady Espinosa MD Work Phone: [facility]11-18-2024 11:28-0500 Heart rate67 /Kathryn Espinosa MD Work Phone: [facility]11-18-2024 11:27-0500 Body xsjmef383.9 cmCady Espinosa MD Work Phone: [facility]11-18-2024 11:27-0500 Body mass index (BMI) [Ratio]25.96 kg/f4UrttdhCady Espinosa MD Work Phone: [facility]11-18-2024 11:27-0500 Body xusvnr38.82 kgCady Espinosa MD Work Phone: [facility]10-08-2024 14:58-0400 Body .88 cm[facility]10-08-2024 14:58-0400Body mass index (BMI) [Ratio]24.7 kg/l0HjmaaoqoaTrihealth10-08-2024 14:58-0400Body kgTrihealth04-22-2024 15:27-0400 Body qqzmda458.88 cmMD Deandre Monterroso Work Phone: 1(425)[address]04-22-2024 15:27-0400 Body mass index (BMI) [Ratio]25 kg/m2MD Deandre Monterroso Work Phone: 1(422)[address]04-22-2024 15:27-0400 Body elwwgkolosh55.2 [degF]MD Deandre Monterroso Work Phone: 1(954)[address]04-22-2024 15:27-0400 Body qceoqx10.91 kgMD Deandre Monterroso Work Phone: 1(179)[address]04-22-2024 15:27-0400 Diastolic blood dzhxvakw04 mm[Hg]MD Deandre Monterroso Work Phone: 1(236)[address]04-22-2024 15:27-0400 Heart rate79 /minMD Deandre Monterroso Work Phone: 1(365)[address]04-22-2024 15:27-0400 Systolic blood yrjkonjz929 mm[Hg]MD Deandre Monterroso Work Phone: [facility]04-15-2024 10:35-0400 Blood Pressure LocationPatrick WHITNEY [facility]04-15-2024 10:35-0400Diastolic blood ctsiruty86 mm[Hg]Lionel WHITNEY [facility]04-15-2024 10:35-0400Heart rate72 /minPatrick WHITNEY [facility]04-15-2024 10:35-0400Respiratory rate16 /minPatrick WHITNEY [facility]04-15-2024 10:35-0400Systolic blood szdertlk690 mm[Hg]Lionel WHITNEY [facility]02-22-2024 11:10-0500Body utfwzv808.88 cmMD Deandre Hoy Work Phone: [facility]02-22-2024 11:10-0500 Body mass index (BMI) [Ratio]24.3 kg/m2MD Deandre Hoy Work Phone: [facility]02-22-2024 11:10-0500 Body uejdft24.19 kgMD Deandre Hoy Work Phone: [facility]08-23-2023 14:16-0400 Blood Pressure LocationMichael NILL [facility] Bwdvgmfq82-70-5174 14:16-0400Diastolic blood ytmkahgl80 mm[Hg]Alex NILL [facility] Xgutnsnw47-69-1155 14:16-0400Heart rate 70 /minMichael NILL [facility] Snnzyskk20-65-1663 14:16-0400 Respiratory rate16 /minMichael NILL General Surgery Smmtnqua16-97-8190 14:16-0400Systolic blood zmvoqfku171 mm[Hg]Alex NILL General Surgery Fbzmtwpt01-14-5656 10:20-0400Body spiymm699.88 cmDaja Chavez Other [employer] Other 06-15-2023 10:20-0400Body mass index (BMI) [Ratio] 25.49 kg/m2Dale Chavez Other [employer] Other 06-15-2023 10:20-0400Body mjibix29.28 kgDale Chavez Other [employer] Other 05-04-2023 10:20-0400Body pwcena609.88 cmDaja Chavez Other [employer] Other 05-04-2023 10:20-0400Body mass index (BMI) [Ratio] 25.63 kg/m2Dale Chavez Other [employer] Other 05-04-2023 10:20-0400Body tenbfw90.73 kgDale Chavez Other [employer] Other 05-04-2023 10:20-0400Diastolic blood ikperzdh49 mm[Hg] Zoran Chavez Other [employer] Other 05-04-2023 10:20-0400Systolic blood wpxnchto579 mm[Hg] Zoran Chavez Other [employer] Other 09-06-2022 10:43-0400[facility]09-06-2022 10:43-0400Diastolic blood gzrduiox49 mm[Hg]Lionel WHITNEY [facility]09-06-2022 10:43-0400Heart rate65 /minPatrick WHITNEY [facility]09-06-2022 10:43-0400Respiratory rate16 /minPatrick WHITNEY [facility]09-06-2022 10:43-0400Systolic blood ykdzjtkq888 mm[Hg]Lionel WHITNEY [facility]08-30-2022 15:15-0400Diastolic blood prybsrvq55 mm[Hg]MD Deandre Monterroso Work Phone: 1(220)931-[address] [place], [place] 3801908-30-2022 15:15-0400 Heart rate58 /minMD Deandre Monterroso Work Phone: 1(840)186-[address] [place], [place] 3801908-30-2022 15:15-0400 Respiratory rate16 /min Deandre Monterroso Work Phone: [facility]08-30-2022 15:15-0400 SaO2% (BldA) [Mass fraction]95 %MD Deandre Monterroso Work Phone: [facility]08-30-2022 15:15-0400 Systolic blood pvbinxnq389 mm[Hg]MD Deandre Monterroso Work Phone: 1(676)192-[address] [place], [place] 3801908-30-2022 14:30-0400 Body dkowaz816.88 cmMD Deandre Monterroso Work Phone: [facility]08-30-2022 14:30-0400 Body mass index (BMI) [Ratio]26.2 kg/m2MD Deandre Monterroso Work Phone: [facility]08-30-2022 14:30-0400 Body eyjimx39.7 kgMD Deandre Monterroso Work Phone: 1([phone])[address]08-30-2022 14:17-0400 Body blclutlbpxz18.6 [degF]MD Deandre Monterroso Work Phone: 1(433)[address] [place], [place] 5946108-30-2022 13:52-0400 Inhaled oxygen flow rate10 L/minMD Deandre Migueltorsten Work Phone: 1(558)[address] [place], [place] 5946104-29-2022 11:42-0400 Body puajct273.34 cmMD Deandre Monterroso Work Phone: 1(144)[address] [place], [place] 5946104-29-2022 11:42-0400 Body mass index (BMI) [Ratio]27 kg/m2MD Deandre Monterroso Work Phone: 1(078)[address] [place], [place] 5946104-29-2022 11:42-0400 Body rgqjooaztkc56.4 [degF]MD Deandre Monterroso Work Phone: 1(220)[address] [place], [place] 5946104-29-2022 11:42-0400 Body osdihz00 kgMD Deandre Monterroso Work Phone: 1(967)[address] [place], [place] 5946104-29-2022 11:42-0400 Diastolic blood gochgjgb31 mm[Hg]MD Deandre Monterroso Work Phone: 1(596)[address] [place], [place] 5946104-29-2022 11:42-0400 Heart rate64 /minMD Deandre Monterroso Work Phone: 1(825)[address] [place], [place] 5946104-29-2022 11:42-0400 SaO2% (BldA) [Mass fraction]100 %MD Deandre Monterroso Work Phone: 1(626)[address]04-29-2022 11:42-0400 Systolic blood bxatnzgc087 mm[Hg]MD Deandre Monterroso Work Phone: 1([phone] [place] [address] Encounters Encounter DateEncounter TypeCare ProviderFacilityStart: 97-72-7595jqthtxelso Patrick R WATERSFacility:[facility] BellevueStart: 02-27-2025 End: 77-87-1864Clewbe flowsheetVasu Mackey MD Work Phone: no [facility] DermatologyStart: 02-27-2025 End: 31-97-5575Mdyuwz flowsheetVasu Mackey MD Work Phone: no [facility]ermatologyStart: 02-27-2025 End: 51-93-5233Wpzyfkk encounter procedureEmalbina Mackey MD Work Phone: no [facility] DermatologyComment on above:Neoplasm of unspecified behavior of bone, soft tissue, and skin (Primary Dx); Actinic keratosisStart: 02-27-2025 End: 67-38-0486fujnsqqhvrXQWRZ A PETITTINot AvailableStart: 02-26-2025 End: 47-67-5478rnuxwfugkjIfzwjth R WATERSFacility:FTMCStart: 02-26-2025 End: 72-42-1044mwyfslyvrmRfohhox R WATERSFacility:EU BellevueStart: 02-26-2025 End: 59-27-8462Zqmmtut encounter procedureLionel WHITNEY [facility] start: 02-05-2025 End: 64-38-9663nvoxtsdyxhUtdkhqt Vytautas Giedraitis Facility:[facility] Start: 01-16-2025 End: 36-30-1013Uvhbfr flowsheetJr. Alexandrea Colmenares DO Work Phone: noMS [facility]opaedicsStart: 01-16-2025 End: 08-63-7436Csstpl flowsheetJr. Alexandrea Colmenares DO Work Phone: noms [facility]opaedicsStart: 01-16-2025 End: 06-69-0412Bgezcm outpatient visit 15 minutesJr. Alexandrea Colmenares DO Work Phone: noms [facility] OrthopaedicsComment on above:Trochanteric bursitis of left hip (Primary Dx); Acute hip pain, leftStart: 01-16-2025 End: 14-47-5094sbcbbeppwhKQ., ALEXANDREA Graham AvailableStart: 12-13-2024 End: 11-71-8475Nvrkgr outpatient visit 15 minutesAdarsxiomara Andrade MD Work Phone: Hematology/OncologyComment on above:Malignant neoplasm of urinary bladder, unspecified site (HCC) (Primary Dx)Start: 12-13-2024 End: 26-75-1784wzanlkmnluUQTRVXY M HOYFacility:[facility] Hospitaltart: 12-12-2024 End: 42-87-5728amztutnxwcCAJJWUOV E PERRYFacility:EU tart: 12-12-2024 End: 73-02-4257Ymdrxsb encounter procedureJENNIFER E AMBREEN [facility] start: 12-11-2024 End: 48-81-0809mycmkbkljoYZNYBK [facility] Start: 12-06-2024 End: 87-55-9007Qtvymy flowsheetJr. Alexandrea Colmenares DO Work Phone: [facility] ORTHOStart: 12-06-2024 End: 24-15-7075Ffsbzi flowsheetJr. Alexandrea Colmenares DO Work Phone: no[facility] ORTHOStart: 12-06-2024 End: 07-97-0324Swigog outpatient visit 15 minutesJr. Alexandrea Colmenares DO Work Phone: noMS [facility] ORTHOComment on above:Trochanteric bursitis of left hip (Primary Dx); Acute hip pain, leftStart: 12-06-2024 End: 30-10-8234dqhxerpfguBPALEXANDREA GALINDO AvailableStart: 12-05-2024 End: 42-33-0958ajgexjouazXIUEVBKB E PERRYFacility:[place]Start: 12-05-2024 End: 85-71-8044Dseasgq encounter procedureJENNIFER E AMBREEN [facility] start: 11-28-2024 End: 20-41-6090frbmjxohwrGBVCPLTJ E PERRYFacility:[place]Start: 11-28-2024 End: 61-35-8986Jszjdtv encounter procedureJENNIFER E AMBREEN [facility] start: 11-10-2024 End: 86-13-5858okdtlqenvuZVGCPYR J MEYERNot AvailableStart: 11-09-2024 End: 11-34-5113amqbosgutnNEDGFUV J MEYERNot AvailableStart: 10-27-2024 End: 21-08-5759Mxegzx Shane MARES Work Phone: [facility]THOPAEDICSStart: 10-27-2024 End: 58-24-9190Bpgkbe Shane MARES Work Phone: [facility]THOPAEDICSStart: 10-27-2024 End: 98-87-4781zxrqmnabrfMORVRJC J MEYERNot AvailableStart: 10-27-2024 End: 70-51-1351Pgeuzd outpatient visit 15 minutesMamark MARES Work Phone: [facility] ORTHOPAEDICSComment on above:Acute hip pain, left (Primary Dx)Start: 10-24-2024 End: 63-84-2132rofssvsdbcLxonikq R WATERSFacility:FTMCStart: 10-24-2024 End: 82-06-1762Ntgokas encounter procedureLionel WHITNEY [facility] Start: 10-09-2024 End: 30-64-4808aducpiqammLndquxd R WATERSFacility:EU ueStart: 10-06-2024 End: 54-51-6678Owwdvp flowsheetMamark MARES Work Phone: noms FB ORTHOPAEDICSStart: 10-06-2024 End: 25-55-0866Uahdlf flowsMor MARES Work Phone: noms FB ORTHOPAEDICSStart: 10-06-2024 End: 82-16-1546ccqmhraogtRWZSVCF J MEYERNot AvailableStart: 10-06-2024 End: 20-31-0875Wmpjrv outpatient new 45 minutesMatthemerry MARES Work Phone: noms FB ORTHOPAEDICSComment on above:Acute hip pain, left (Primary Dx); Trochanteric bursitis of left hipStart: 09-20-2024 End: 15-42-4180Vecbnsqcyb hospital visit by Sammie Barkley [address] [place], [place] [address]Comment on above:Chest pressure; Shortness of breathStart: 09-20-2024 End: 20-34-7836oltndccdbuTRKNHHCleveland Clinic [facility]inte [facility] Start: 09-13-2024 End: 70-32-9798Ghsnbmj evaluation of patient and reportMa Nurse Enrique Trevino Work Phone: Hematology/OncologyComment on above:Malignant neoplasm of urinary bladder, unspecified site (HCC) (Primary Dx)Start: 09-13-2024 End: 89-93-9410Ewkqoc outpatient visit 25 minutesAdarsh Raymond NOBLE Work Phone: Hematology/OncologyComment on above:Malignant neoplasm of urinary bladder, unspecified site (HCC) (Primary Dx)Start: 09-13-2024 End: 36-50-5893ylokybbmgqLlwwd [address] [place] Work Phone: Hematology/OncologyComment on above:Malignant neoplasm of urinary bladder, unspecified site (HCC) (Primary Dx)Start: 09-11-2024 End: 01-79-9612rkhohfcusxKDXAX A PETITTINot AvailableStart: 09-01-2024 End: 75-96-7291qswlmbzxrdPZFTMR VENNEPUREDDYFacility:[facility] Start: 09-01-2024 End: 58-46-3122Mfmyfyujlq hospital visit by physicianArrival Time Radiology Work Phone: Radiology Pet CTComment on above:Malignant neoplasm of urinary bladder, unspecified site (HCC) [C67.9]Start: 08-30-2024 End: 46-66-8267Eploqwu evaluation of patient and reportMa Nurse Enrique Trevino Work Phone: Hematology/OncologyComment on above:UTI symptoms (Primary Dx)Start: 08-30-2024 End: 09-17-2270eevsaovhuyCmdzd [address] [facility] Work Phone: Hematology/OncologyComment on above:Malignant neoplasm of urinary bladder, unspecified site (HCC) (Primary Dx)Start: 08-28-2024 End: 26-72-4842gfwlpjwaimQrseolq Vytdanieas Giedraitis MDFacility:PM [place] Start: 08-23-2024 End: 21-62-1284Ippxct-up encounterAdarsh Raymond NOBLE Work Phone: Hematology/OncologyStart: 08-23-2024 End: 53-57-8000Nchrtlw evaluation of patient and reportMa Nurse Enrique Trevino Work Phone: Hematology/OncologyComment on above:High risk medication use (Primary Dx)Start: 08-23-2024 End: 59-33-0099ffmxuasbziZdqwi [address] [place] Work Phone: Hematology/OncologyComment on above:Malignant neoplasm of urinary bladder, unspecified site (HCC) (Primary Dx)Start: 08-16-2024 End: 75-35-5256Gdrwchl evaluation of patient and reportMa Nurse Ernique Trevino Work Phone: Hematology/OncologyComment on above:High risk medication use (Primary Dx)Start: 08-16-2024 End: 95-15-8675Olzkcp outpatient visit 25 minutesAdarsh Raymond NOBLE Work Phone: Hematology/OncologyComment on above:Malignant neoplasm of urinary bladder, unspecified site (HCC) (Primary Dx)Start: 08-16-2024 End: 84-18-7685wfzpxaojhyPlatu [address] [facility] Work Phone: Hematology/OncologyComment on above:Malignant neoplasm of urinary bladder, unspecified site (HCC) (Primary Dx)Start: 08-09-2024 End: 89-52-6651Zyzoyqb evaluation of patient and reportMa Nurse Enrique Trevino Work Phone: Hematology/OncologyComment on above:High risk medication use (Primary Dx)Start: 08-09-2024 End: 83-53-5616porwfxaauvYlgns [address] [facility] Work Phone: Hematology/OncologyComment on above:Malignant neoplasm of urinary bladder, unspecified site (HCC) (Primary Dx)Start: 08-07-2024 End: 60-30-3790Zjkppfjbi encounterTifstella Ugalde RN Work Phone: Hematology/OncologyComment on above:Care Coordination (C1D1 treatment follow up call)Start: 08-07-2024 End: 13-17-8102solxmupmynWcxzowj Vytautas Giedraitis MDFacility:MIRIAN Reilly Start: 08-02-2024 End: 60-52-9391Sodmabi evaluation of patient and reportMa Nurse Enrique Trevino Work Phone: Hematology/OncologyComment on above:Malignant neoplasm of urinary bladder, unspecified site (HCC) (Primary Dx)Start: 08-02-2024 End: 12-66-9224jaxnmyfaitHetfh UCampusy Work Phone: Hematology/OncologyComment on above:Malignant neoplasm of urinary bladder, unspecified site (HCC) (Primary Dx)Start: 08-02-2024 End: 37-51-7743Lyrjls outpatient visit 25 minutesAdarsh Raymond NOBLE Work Phone: Hematology/OncologyComment on above:Malignant neoplasm of urinary bladder, unspecified site (HCC) (Primary Dx)Start: 08-01-2024 End: 59-74-0513Mqejdkijc encounterFinancial Navigator Enrique Work Phone: Hematology/OncologyComment on above:Benefits Investigation (Good Day Mary,//I am your Financial Navigator, [...] feel free to stop in or call [phone] for any questions you may have. )Start: 07-26-2024 End: 37-72-3066YwukmtMendel Vargas [facility] Work Phone: Hematology/OncologyComment on above:Malignant neoplasm of urinary bladder, unspecified site (HCC) (Primary Dx)Start: 07-19-2024 End: 20-07-9282deviwqiomdPQVNXP VENNEPUREDDYFacility:[facility] Start: 07-19-2024 End: 38-73-0902Bvgczj outpatient new 60 minutesNorberto Andrade MD Work Phone: Hematology/OncologyComment on above:Malignant neoplasm of urinary bladder, unspecified site (HCC) (Primary Dx)Start: 07-18-2024 End: 99-29-0530Zcyvh Magnolia Andrade MD Work Phone: Hematology/OncologyStart: 07-17-2024 End: 19-75-3386Buqwkq outpatient visit 25 minutesCady Espinosa MD Work Phone: [facility] CenterComment on above:Uncontrolled hypertension; Unequal blood pressure in upper extremities; Mixed hyperlipidemia; Former smoker; Bilateral carotid artery stenosis; History of prostate cancer; Hx of bladder cancer; Medication course changed; Chest pressure; Shortness of breath; BMI 26.0-26.9,adultStart: 07-17-2024 End: 19-54-4057oywqavnblnPRFEVNMohansic State Hospital AmbulatoryStart: 07-12-2024 End: 84-09-2808qqrrxllvxcIostouw R WATERSFacility:EU [place]kyStart: 07-12-2024 End: 62-83-9253Mzglbvu encounter procedureLionel WHITNEY [facility] [place] Start: 07-06-2024 End: 52-14-0917zqavchnifdSekhlfs M Hoy MD Work Phone: [facility] Work Phone: Start: 07-06-2024 End: 10-98-7398Igmulalt ReferredDeandre Monterroso MD Work Phone: [facility]-LAB Path Spec [place] HospStart: 07-06-2024 End: 63-12-4168lcfjwghzikBitxbtx R WATERSFacility:CD:[id number]: 07-03-2024 End: 61-86-5759kcdvpjmkxxBouphll Vytautas Giedraitis MDFacility:PM [place] Start: 06-09-2024 End: 27-71-6656Rfmlwvluaj hospital visit by physicianTania [place] Echo/Vas Room 2[facility] Medical CenterComment on above:Left carotid bruit; Unequal blood pressure in upper extremitiesFormer smoker; Shortness of breathStart: 06-09-2024 End: 58-88-7060cdgkcdgfdvNHHENMOhioHealth Doctors Hospital Start: 06-05-2024 End: 19-88-2552tnxbjwfkqiFcxslwv Vytautas Giedraitis MDFacility:PM [place] Start: 05-29-2024 End: 79-31-1928wtdvrvqxadGikoadh Vytautas Giedraitis MDFacility:[facility] [place] Start: 05-22-2024 End: 18-28-6707Oxn Drop Maury WHITNEY [facility] Start: 05-22-2024 End: 66-48-2002sgfhuunucsHsdhecw R WATERSFacility:FTMCStart: 05-22-2024 End: 52-75-7047Fhopzxa encounter procedureLionel WHITNEY [facility] start: 05-09-2024 End: 42-95-2246fvpuityoflZaospon R WATERSFacility:FTMCStart: 05-09-2024 End: 59-97-4771Elhuree encounter procedureLionel WHITNEY [facility] Start: 05-08-2024 End: 75-21-0312Jutmof consultation new/estab patient 60 Kathryn Espinosa MD Work Phone: uh FirelandsComment on above:Unequal blood pressure in upper extremities; Uncontrolled hypertension; Shortness of breath; Mixed hyperlipidemia; History of prostate cancer; Hx of bladder cancer; History of fractured rib; Former smoker; BMI 25.0-25.9,adult; Medication course changedStart: 05-08-2024 End: 97-13-9595afvpjkdtorDYNAAFMountain Lakes Medical Center AmbulatoryStart: 04-10-2024 End: 08-40-1360cgkrskomfwVoxzsrtTomás Landa MDFacility:[facility] Start: 03-28-2024 End: 56-67-4407oebwdjrargYdhabraesCleveland Clinic [facility] Work Phone: Start: 03-28-2024 End: 45-80-4552Toczsli encounter procedureCaromont [facility] Neuro[facility] Work Phone: start: 03-27-2024 End: 99-99-9051fivfrmqzioJrhxyglTomás Landa MDFacility:[facility] Start: 10-26-2023 End: 18-68-0818Muicnok encounter Betsy WHITNEY [facility] Start: 10-11-2023 End: 32-85-8829hazitdaypgPE Deandre M Hoy Work Phone: [facility] Work Phone: Start: 10-11-2023 End: 12-56-2676Qplrpwt encounter procedureMD Deandre Hoy Work Phone: [facility] Infectious Disease Work Phone: Start: 10-04-2023 End: 54-40-5051Jsyozbc encounter procedurePasantiago WHITNEY [facility] start: 08-28-2023 End: 12-56-2622Zwwoest encounter procedureMD Deandre Hoy Work Phone: [facility]-MRI [facility] [place] Work Phone: Start: 08-28-2023 End: 12-36-0266gjzyrwjkopDgymsyg M HoyFacility:[facility] Start: 08-12-2023 End: 44-67-9662Oswiher encounter procedureMD Deandre Hoy Work Phone: [facility]-XRay [facility] [place] Work Phone: Start: 08-12-2023 End: 28-25-8633xdkymuwwdzDO Deandre M Hoy Work Phone: [facility] Work Phone: Start: 08-12-2023 End: 88-75-7511bsbcvhznlfIK Deandre M Hoy Work Phone: [facility] Work Phone: Start: 08-12-2023 End: 27-97-7063Vhvscmm encounter procedureMD Deandre Hoy Work Phone: [facility] Neurosurgery Work Phone: start: 04-27-2023 End: 66-72-5486Eetrprt encounter procedureLionel WHITNEY [facility] Start: 02-10-2023 End: 37-64-9057Csvhuex encounter procedureMichael R NILL General Surgery Nill/Said [place] Start: 01-05-2023 End: 39-01-4411Jrpvavr encounter procedurePatrick R DEVONTE [facility] Start: 01-01-2023 End: 10-43-7819olimwnsxqxKC Deandre Monterroso Work Phone: [facility] Work Phone: Start: 01-01-2023 End: 02-11-3166Cepdmol encounter procedureMD Deandre Monterorso Work Phone: [facility] [place] Work Phone: Start: 12-03-2022 End: 61-41-9048ehcqmlpiswGmnh Braun Other [employer] Other start: 23-54-8971Dbzzfh outpatient visit 15 minutes [facility] NeurosurgeryStart: 24-01-9521ywupnixxetMCXBZAF GIEDRAITISFacility:I2Pwguy: 10-28-2022 End: 34-16-0264urrrzqysfgNI JIHAD ABBASFacility:W7Yczam: 10-27-2022 End: 73-55-6255lmqcgjserkNE ZORAN BRAUNFacility:B5Oehuv: 10-23-2022 End: 90-05-0314wldwddvqsaCF ZORAN BRAUNFacility:L3Ikbpz: 10-22-2022 End: 00-66-4615ubadydcxntAvjm Scott Other [employer] Other start: 63-11-4924Hqopaz outpatient visit 15 minutes [facility] NeurosurgeryStart: 10-05-2022 End: 70-09-1607ayshjfuceqHG DEANDRE HOY .Facility:T6Yeaee: 09-24-2022 End: 29-33-4205izgvwrfogkCY DEANDRE HOY .Facility:W3Tzduy: 09-21-2022 End: 99-60-0053kalpmzxsmnAR LIONEL WHITNEY .Facility:M1Iylni: 09-21-2022 End: 87-04-8165Lbgxqix encounter procedurePatricjuan luis WHITNEY [facility] start: 08-19-2022 End: 94-39-7395bzpwonryeaVK LIONEL WHITNEY .Facility:Y2Xuizi: 08-17-2022 End: 90-15-4738Fisdzdk encounter procedurePatricjuan luis WHITNEY [facility] start: 08-04-2022 End: 49-21-7271movxlawhvxMZ DEANDRE HOY .Facility:V2Zrysq: 07-28-2022 End: 54-49-3010tjiusnyzgwVY DEANDRE HOY .Facility:Z2Klmef: 07-23-2022 End: 85-11-8970osilgqkfuyVS LIONEL WHITNEY .Facility:M9Zloes: 07-20-2022 End: 35-45-5517Rhyqbib encounter procedurePasantiago WHITNEY [facility] Start: 07-07-2022 End: 25-28-3356Wqexbvf encounter procedurePatricjuan luis WHITNEY [facility] Start: 06-30-2022 End: 49-12-8145ggdmtgwpfbAI DEANDRE HOY .Facility:P9Xhhsh: 06-04-2022 End: 37-66-3721bswmmpkmqcOL DEANDRE HOY .Facility:D0Uluwk: 05-25-2022 End: 15-48-9567lpralskhrfSL DEANDRE CUBAY .Facility:E6Yhgxq: 05-18-2022 End: 11-45-8879Didopww encounter procedurePasantiago WHITNEY [facility] start: 04-27-2022 End: 26-84-4603vdddnhnzfhOI DEANDRE MONTERROSO .Facility:V0Xsnvv: 04-18-2022 End: 88-34-3618bimealrzjmGH FELICIA GALDAMEZ .Facility:D4Btdcx: 04-15-2022 End: 55-68-5150Zotnllp encounter procedurePasantiago WHITNEY [facility] start: 03-26-2022 End: 67-08-4804ygpyyuoqzvVC LIONEL WHITNEY .Facility:Y4Rqyeq: 03-12-2022 End: 14-86-5475esbqiemkltIS DEANDRE MONTERROSO .Facility:F2Kqxzo: 03-09-2022 End: 38-27-3478Dszrgep encounter procedurePasantiago WHITNEY [facility] start: 02-27-2022 End: 89-85-9360Hsr Drop offLionel WHITNEY [facility] Start: 02-27-2022 End: 41-97-4849Yxzpwdu encounter procedurePatricjuan luis WHITNEY [facility] start: 02-24-2022 End: 95-73-0765Ueomhtg encounter procedurePatricjuan luis WHITNEY [facility] Start: 02-17-2022 End: 72-58-4611Uprbryapy to same day surgery centerMD Deandre Hoy Work Phone: [facility]Sur[facility] CampusStart: 02-13-2022 End: 63-76-9601Jyelmqx encounter procedureMD Deandre Hoy Work Phone: [facility]-Pre-Surgical Testing Start: 02-06-2022 End: 21-86-6701Guapoum encounter procedureMD Deandre Hoy Work Phone: [facility]-Pre-Surgical Testing Start: 11-11-2021 End: 38-83-9501Vfsrske encounter procedurePasantiago Burgos WHITNEY [facility] Start: 11-05-2021 End: 34-76-9283Fhqpjuo encounter procedurePatricjuan luis Burgos WHITNEY [facility] [place] Start: 10-29-2021 End: 03-37-8467Zaujdqcms to same day surgery centerMD Deandre Hoy Work Phone: [facility]Sur[facility] CampusStart: 10-27-2021 End: 22-72-0041Stptdhd encounter procedureMD Deandre Hoy Work Phone: [facility]-Rzf-Xukvnzbe Testing Start: 10-17-2021 End: 61-72-9894Xetvtqk encounter procedureMD Deandre Hoy Work Phone: [facility]-Pre-Surgical [facility] Procedures DateProcedureProcedure DetailPerforming ClinicianStart: 12-51-1139HWIPSREKUNU SKIN LESIONEmily Vee Mackey MD Work Phone: Start: 96-72-5887ZDPR / NAIL BIOPSYEmalbina Mackey MD Work Phone: Start: 17-71-1422MpfluvfcliQgqisia WHITNEY Start: 84-28-1525Kcfhopqkuguvxo aspir&/inj major jt/bursa w/o usMatthew Beka MARES Work Phone: Start: 93-35-4700Et strs tst xers&/or rx cont ecg trcg onlyCady Espinosa MD Work Phone: Start: 76-04-9212Vqhta dip stick/tablet rgnt auto w/o microscopyNorberto Andrade MD Work Phone: start: 85-69-5516Ecjhp dip stick/tablet rgnt auto w/o microscopyCcf ProviderStart: 72-78-6388Pbcoj dip stick/tablet rgnt auto w/o microscopyCcf ProviderStart: 84-67-7891Avhwh dip stick/tablet rgnt auto w/o microscopyCcf ProviderStart: 09-68-4910Uzkyvrmusuify resection of bladder neoplasmNytrick WHITNEY Start: 89-97-2465Idmdqc scan extracranial art compl bi studyCady Espinosa MD Work Phone: Start: 43-30-5047Yiwn tthrc r-t 2d w/wom-mode compl spec&colr dGcameron Espinosa MD Work Phone: Start: 44-52-2273Zcy routine ecg w/least 12 lds w/i&r Cady Espinosa MD Work Phone: Start: 53-17-1384GBF of cervical spine with contrastMD Deandre Monterroso Work Phone: Start: 68-43-5126N-ray of lumbar spine, six views including bending viewsMD Deandre Hoy Work Phone: Start: 01-83-0978P-ray of cervical spineMD Deandre Hoy Work Phone: Start: 38-79-3187Tlykedxfxqkrk cystoscopyPahardin memorial hospitaljuan luis WHITNEY Start: 93-18-7755Jsyphfftzvzns resection of bladder neoplasmPatrick DEVONTE Start: 02-04-1078NM lumbar spine wo conMD Deandre Monterroso Work Phone: Start: 13-66-6549CXD screeningDR JAYLEENPRESTONRicarda Daley on above:Performed By: #### PSAD #### [facility] [address] [place] [address] Dr. Oropeza Start: 33-97-9295Qisgntasbdenv resection of bladder neoplasmMD Deandre Hoy Work Phone: [phone]-art: 50-78-5656Cfvoedivqdxbk resection of bladder neoplasmPatrick DEVONTE Start: 95-48-9023Yzibnnwgzjnso resection of bladder neoplasmMD Deandre Hotorsten Work Phone: [phone]-: 66-00-4833Osfwrafvkn radiography of abdomenMD Deandre Monterroso Work Phone: [phone]-art: 91-80-4332Qlbumctbnqhow resection of bladder neoplasmPatrick DEVONTE Start: 13-14-7603Qvwrr chest X-rayMD Deandre Monterroso Work Phone: [phone]-art: 49-33-3657Xxmbiqqtmarqtokhg with dilation of urethral stricturePatrick DEVONTE Start: 65-28-9377Vhdljl of umbilical herniaPatrick WHITNEY Comment on above:Umbilical hernia repair with mesh ( assisted with robot)Start: 58-42-2519Amsrusxpftv of shoulderPatrick WHITNEY Comment on above:LEFT SHOULDER ARTHROSCOPIC, CHONDROPLASTY,DEBRIDEMENT OF PARTIAL ROTATOR CUFF TEAR, REMOVAL RETAINED SUTURE Start: 56-13-3399hgklgsvxv fifth partial metatarsal osteotomies and Silver Tailor's bunionectomiesPatrick nPicker Start: 76-59-3877Ooegyqs prostatectomyPatrick WHITNEY Start: 52-52-2087Gowxzwp perineal prostatectomyGeorgetown Community HospitalAppSame Comment on above:[facility]: 90-58-3294DwzvcflezkvZcrwzla NILL Start: 12-55-9841Juhrlbbk repair of rotator cuffPatrick DEVONTE Comment on above:rightStart: 82-33-7311Pgzmaegd reconstructionPatrick DEVONTE Comment on above:left possibly a screw in there per pt Start: 23-04-1269ShqqvrsjdpeqYjfryvd DEVONTE arthroplasty of the anklePatrick DEVONTE Comment on above:1988, 1990Arthroscopy of kneePatrick DEVONTE 625-4337Ltbadlk-Cfkr sequence (disorder)Lioneljameel WHITNEY Plan of Treatment DateCare ActivityDetailAuthorStart: 75-32-8526LVhJ/Tdap/Td Vaccines (3 - Td or Tdap)DTaP/Tdap/Td Vaccines (3 - Td or Tdap)[facility] Start: 13-29-9805Bwnbb microalbumin profileDTaP,Tdap,Td Vaccine (3 - Td or Tdap) [facility]tart: 96-68-9580Phemviwq ScreeningDiabetes ScreeningBrecksville VA / Crille Hospitaltart: 81-06-0994Jcbyshxb ScreeningDiabetes ScreeningUniversity Hospitals Parma Medical Center Start: 20-21-2291Vhkilvrq ScreeningDiabetes ScreeningBrecksville VA / Crille Hospitaltart: 63-65-0218Jwazhgdk ScreeningDiabetes ScreeningMontezuma ClinicStart: 2026 RSV Vaccine (1 - 1-dose 75+ series)RSV Vaccine (1 - 1-dose 75+ series)[facility]tart: 09-11-2025 End: 24-71-1373Cumgpuq encounter procedureNOMS SWS DERMStart: 07-17-2025 End: 41-02-6272Asauiej encounter viidpofxc11/27/2026 10:00 AM EST Office Visit [facility] [place] [address] Jr. Alexandrea Colmenares, DO [address] [facility] [address] [place] [address] NOMRozina [facility] OrthopaedicsStart: 02-27-2025 End: 94-57-8281Srujitd encounter gbcsypamj69/09/2025 11:15 AM EDT Office Visit [facility]Rozina [facility] [address] [place], [id number] Vasu Mackey MD [address] [place] [address] ArrivedNOMS [place] DermatologyComment on above:ArrivedStart: 46-99-5202Yngabrzzw vaccinationBrecksville VA / Crille Hospitaltart: 01-16-2025 End: 53-34-3549Hvzmryp encounter procedureNOMS FB ORTHOPAEDICSComment on above: ArrivedStart: 01-01-2025 End: 10-31-6266Ocaddmx encounter yjfnwhgan30/14/2025 10:45 AM EDT Office Visit [facility] [address] [facility] [address] [place] [address] Cady Espinosa MD [address] [facility] [address] [place] [address] [facility]Start: 12-13-2024 End: 91-62-9628Pekjlbgiu (Vitamin B12) [Mass/volume] in Serum or PlasmaMontezuma ClinicComment on above:Expected: 12/13/2024, Expires: 03/14/2025Start: 12-13-2024 End: 31-43-3830Rdzdrcvx [Mass/volume] in Serum or [facility] Work Phone: comment on above:Expected: 12/13/2024, Expires: 03/14/2025Start: 12-13-2024 End: 43-76-2445Isbjvm [Mass/volume] in Serum or PlasmaUniversity Hospitals Parma Medical CenterComment on above:Expected: 12/13/2024, Expires: 03/14/2025Start: 12-13-2024 End: 87-94-4911Gxns and Iron binding capacity panel - Serum or PlasmaUniversity Hospitals Parma Medical CenterComment on above:Expected: 12/13/2024, Expires: 03/14/2025Start: 12-13-2024 End: 19-16-8038Nkngvy-up dgggiubqy63/25/2025 1:00 PM EDT Visit (SP) Office Hematology/Oncology [address] [facility] [address] [place], [place] [phone] Norberto Andrade MD [address] [facility] [place] [address] 3 month follow upHematology/OncologyComment on above:3 month follow upStart: 12-13-2024 End: 00-33-9687Hzspyau encounter /25/2025 12:45 PM EDT Office Visit [facility] [address] [place] [address] [place] [address] 3 month follow upNortSelect Specialty Hospital LaboratoryComment on above:3 month follow upStart: 12-06-2024 End: 96-62-5441Oehnwtf encounter omzomcxbz64/18/2025 8:45 AM EDT Office Visit [facility] [address] [place] [phone] Jr. Alexandrea Colmenares, [address] [facility] [address] [place] [address] ArrivedNOPROMISE H[facility]ITAL [facility] ORTHOComment on above: ArrivedStart: 11-16-2024 End: 86-36-0330Zbanrrt encounter eaoicmcis63/29/2025 10:45 AM EDT Appointment [facility] [address] [facility] [address] [place] [phone] [facility] CenterStart: 11-10-2024 End: 90-12-4559Jjfirue encounter /23/2025 9:45 AM EDT Office Visit [facility] [address] [place] [phone] Karen Bustillo PA [address] [facility] [address] [place] [address] NOMS FB ORTHOPAEDICSStart: 10-27-2024 End: 89-26-2779EM Hip - left WO contrastMR hip left wo IV contrast Imaging Routine Acute hip pain, left Expected: 10/27/2024 (Approximate),Expires: 10/27/2025[facility] Work Phone: Comment on above:Expected: 10/27/2024 (Approximate), Expires: 10/27/2025Start: 10-27-2024 End: 45-79-6986Dwmeroy encounter ttqxqvaiv27/09/2025 9:45 AM EDT Office Visit [facility] [address] [place] [address] Karen Bustillo PA [address] [facility] [address] [place] [address] NOMS ORTHOPAEDICSStart: 09-13-2024 End: 03-11-0921Pmumibb evaluation of patient and qpohub7009/13/2024 2:00 PM EDT Nurse Visit Hematology/Oncology [address] [place] [address] [place] [address] [phone] Bruno Trevino Nurse Enrique [address] [place] [address] UA to rule ogUTIHematology/OncologyComment on above:UA to rule og UTI Start: 09-13-2024 End: 34-13-7663vvusszbswl88/26/2025 1:00 PM EDT Infusion Center Hematology/Oncology [address] [facility] [place] [address] [facility] Hematology/OncologyComment on above:BCGStart: 09-13-2024 End: 78-17-9702Ttwkny-up ffgfylnss29/26/2025 1:00 PM EDT Visit (SP) Office Hematology/Oncology [address] [facility] [place], [place] [phone] Norberto Andrade MD [address] [facility] [place] [address] 4 week lab follow up w/ BCGHematology/OncologyComment on above:4 week lab follow up w/ BCGStart: 09-13-2024 End: [id number] encounter clloakgbi23/26/2025 12:45 PM EDT Office Visit [facility] [address] [place] [address] 4 week lab follow up w/ BCG[facility] LaboratoryComment on above:4 week lab follow up w/ BCGStart: 09-06-2024 End: [id number] evaluation of patient and olamfr9009/06/2024 2:00 PM EDT Nurse Visit Hematology/Oncology [address] [place] [address] [place] [address] [phone] Bruno Trevino Nurse Enrique [address] [place] [address] UA to rule ogUTIHematology/OncologyComment on above:UA to rule og UTI Start: 09-06-2024 End: 74-94-7612jywgxqsova28/19/2025 1:00 PM EDT [facility] Hematology/Oncology [address] [place] [address] [place] [address] New start Intravesical BCGHematology/OncologyComment on above:New start Intravesical BCGStart: 09-01-2024 End: 89-86-1258Owptppd encounter uycvpgytc38/14/2025 1:15 PM EDT Appointment Radiology Pet CT [address] [facility] [place] [address] CT CAP W IV Radiology Pet CTComment on above:CT CAP W IVStart: 08-31-2024 End: 92-50-0503Gsgvcub encounter procedureUH Linette ReillylandsStart: 08-31-2024 End: 56-32-9587Arqtptj encounter procedureUH Linette ReillylandsStart: 08-30-2024 End: 77-21-1242Quebgwv evaluation of patient and fbjujx5408/30/2024 2:30 PM EDT Nurse Visit Hematology/Oncology [address] [facility] [place] [address] [phone] Bruno Trevino Nurse Enrique [address] [facility] [place] [address] UA to rule ogUTIHematology/OncologyComment on above:UA to rule og UTI Start: 08-30-2024 End: 88-08-7068SU Abdomen and Pelvis W contrast IVCT ABD/PEL W IVCON Radiology Routine Malignant neoplasm of urinary bladder, unspecified site (HCC) Expected: 08/30/2024, Expires: 09/15/2025[facility] Work Phone: comment on above:Expected: 08/30/2024, Expires: 09/15/2025Start: 08-30-2024 End: 21-43-9711ZS Chest W contrast IVCT CHEST W IVCON Radiology Routine Malignant neoplasm of urinary bladder, unspecified site (HCC) Expected: 08/30/2024, Expires: 09/15/2025[facility] ClinicComment on above:Expected: 08/30/2024, Expires: 09/15/2025Start: 08-30-2024 End: 32-07-2140qnuipaqmmiAjquxguvhk/OncologyComment on above:New start Intravesical BCGBCGStart: 08-23-2024 End: 59-24-9305Docfelz evaluation of patient and reportHematology/Oncology Comment on above:UA to rule og UTIUA to rule out UTIStart: 08-23-2024 End: 63-78-9580otscaiyvlgTtabrzlomv/OncologyComment on above:New start Intravesical BCGBCGStart: 08-16-2024 End: 00-99-7032Sfzffdg evaluation of patient and reportHematology/Oncology Comment on above:UA to rule og UTIUA to rule out UTI (no orders)Start: 08-16-2024 End: 15-97-6138WGZ W Auto Differential panel - BloodCOMPLETE BLOOD COUNT AND DIFFERENTIAL Lab Routine Malignant neoplasm of urinary bladder, unspecified site (HCC) Expected: 08/16/2024 (Approximate), Expires: 11/15/2024[facility] Work Phone: comment on above:Expected: 08/16/2024 (Approximate), Expires: 11/15/2024Start: 08-16-2024 End: 29-74-9744Fvcxxhabggrxo metabolic 2000 panel - Serum or PlasmaCOMPREHENSIVE METABOLIC PANEL Lab Routine Malignant neoplasm of urinary bladder, unspecified site (HCC) Expected: 08/16/2024 (Approximate), Expires: 11/15/2024[facility] ClinicComment on above:Expected: 08/16/2024 (Approximate), Expires: 11/15/2024 Start: 08-16-2024 End: 63-07-3467Tbuhdmjr specific Ag [Mass/volume] in Serum or PlasmaPROSTATE- SPECIFIC ANTIGEN DIAGNOSTIC Lab Routine Malignant neoplasm of urinary bladder, unspecifiedsite (HCC) Expected: 08/16/2024 (Approximate), Expires: 11/15/2024 [facility]:Expected: 08/16/2024 (Approximate), Expires: 11/15/2024Start: 08-16-2024 End: 40-55-8397xbqjsyyuvdVkoenyztmu/OncologyComment on above:New start Intravesical BCGBCGStart: 08-16-2024 End: 27-54-5913Vhqmep-up bibbouisw40/26/2025 1:00 PM EST Visit (SP) Office Hematology/Oncology [address] [place] [address] [address] [place] [phone] Norberto Andrade MD [address] [place] [address] [place] [address] 2 week lab follow upHematology/OncologyComment on above:2 week lab follow upStart: 08-16-2024 End: 10-49-5899Nwkvaju encounter jucnpzjcy28/26/2025 12:45 PM EST Office Visit [facility] [address] [facility] [place] [address] 2 week lab follow upNortSelect Specialty Hospital LaboratoryComment on above:2 week lab follow upStart: 08-09-2024 End: 79-02-6492Kpobswf evaluation of patient and ndmemz5808/09/2024 2:00 PM EST Nurse Visit Hematology/Oncology [address] [facility] [address] Bruno Trevino Nurse Enrique [address] [facility] [address] UA to rule ogUTIHematology/OncologyComment on above:UA to rule og UTI Start: 08-09-2024 End: 26-02-1673jevkyfszecYrktdknzyu/OncologyComment on above:New start Intravesical BCGBCGStart: 08-08-2024 End: 41-37-7166Spjbnks aminotransferase [Enzymatic activity/volume] in Serum or Plasma by With P-5'-PAlanine Aminotransferase Lab Routine Mixed hyperlipidemia Expected: 08/08/2024, Expires: 05/08/2025[facility] Work Phone: Comment on above:Expected: 08/08/2024, Expires: 05/08/2025Start: 08-08-2024 End: 11-60-6899Ctxhmdtpk aminotransferase [Enzymatic activity/volume] in Serum or Plasma by With P-5'-PAspartate Aminotransferase Lab Routine Mixed hyperlipidemia Expected: 08/08/2024, Expires: 05/08/2025[facility] Work Phone: Comment on above:Expected: 08/08/2024, Expires: 05/08/2025Start: 08-08-2024 End: 82-00-6696Ilerg 1996 panel - Serum or PlasmaLipid Panel Lab Routine Mixed hyperlipidemia Expected: 08/08/2024, Expires: 05/08/2025[facility] Work Phone: Comment on above:Expected: 08/08/2024, Expires: 05/08/2025Start: 08-02-2024 End: 25-46-9824Qgwdlpe evaluation of patient and lzunlv6908/02/2024 9:00 AM EST Nurse Visit Hematology/Oncology [address] [facility] [facility] [address] Bruno Trevino Nurse Enrique [address] [facility] [place] [address] UA to rule ogUTIHematology/OncologyComment on above:UA to rule og UTI Start: 08-02-2024 End: 17-01-4192xtrmbzsgvy34/12/2025 8:30 AM EST Infusion Center Hematology/Oncology [address] [facility] [place] [address] New start Intravesical BCGHematology/OncologyComment on above:New start Intravesical BCGStart: 08-02-2024 End: 19-21-4116Rapxbu-up ltwjkdnda35/12/2025 8:30 AM EST Visit (SP) Office Hematology/Oncology [address] [facility] [address] [place], [place] [phone] Norberto Andrade MD [address] [facility] [place] [address] Follow upHematology/OncologyComment on above:Follow up Start: 08-02-2024 End: 55-03-1658Agkmrlq encounter abhujjcak59/12/2025 8:15 AM EST Office Visit [facility] [address] [place] [address] labNortSelect Specialty Hospital LaboratoryComment on above:labStart: 07-26-2024 End: 22-52-2605Xktrghl evaluation of patient and xpnolz5007/26/2024 11:00 AM EST Nurse Visit Hematology/Oncology [address] [place] [address] [place] [address] Ingrid Ugalde, RN [address] [facility] [address] Chemo EducationHematology/OncologyComment on above:Chemo EducationStart: 07-19-2024 End: 80-41-2647HYG W Auto Differential panel - BloodCOMPLETE BLOOD COUNT AND DIFFERENTIAL Lab Routine Malignant neoplasm of urinary bladder, unspecified site (HCC) Expected: 07/19/2024, Expires: 10/18/2024[facility] Work Phone: comment on above:Expected: 07/19/2024, Expires: 10/18/2024Start: 07-19-2024 End: 27-35-8935Yiisxisbxfjks metabolic 1999 panel - Serum or PlasmaCOMPREHENSIVE METABOLIC PANEL Lab Routine Malignant neoplasm of urinary bladder, unspecified site (HCC) Expected: 07/19/2024, Expires: 10/18/2024[facility] ClinicComment on above:Expected: 07/19/2024, Expires: 10/18/2024Start: 07-19-2024 End: 67-21-3108wdbywccqsx98/29/2025 11:00 AM EST Visit (SP) Office Hematology/Oncology [address] [place] [address] [place] [address] Norberto Andrade MD [address] [place] [address] [place] [address] Lionel Whitney. Dx: Bladder CA. will need #6 BCG treatments after Jul 27.Hematology/OncologyComment on above: Referred by Dr. Lionel Whitney. Dx: Bladder CA. will need #6 BCG treatments after Jul 27.Start: 07-17-2024 End: 90-84-3716Fbsallgkpkwop metabolic 1999 panel - Serum or PlasmaComprehensive Metabolic Panel Lab Routine Medication course changed Chest pressure Shortness of breath Expected: 07/17/2024 (Approximate), Expires: 07/17/2025[facility] Work Phone: Comment on above:Expected: 07/17/2024 (Approximate), Expires: 07/17/2025Start: 07-17-2024 End: 50-85-7451Ddnop 1996 panel - Serum or PlasmaLipid Panel Lab Routine Uncontrolled hypertension Mixed hyperlipidemia Medication course changed Exp ected: 07/17/2024 (Approximate), Expires: 07/17/2025[facility] Work Phone: Comment on above:Expected: 07/17/2024 (Approximate), Expires: 07/17/2025Start: 07-17-2024 End: 21-56-1399OO Heart Perfusion W stress and W radionuclide IVNuclear Stress Test Cardiac Nuclear Medicine Routine Chest pressure Shortness of breath Expected: 07/17/2024 (Approximate), Expires: 07/17/2025[facility] Work Phone: Comment on above:Expected: 07/17/2024 (Approximate), Expires: 07/17/2025Start: 07-17-2024 End: 20-18-0353HL.doppler Carotid arteries - bilateralVascular US Carotid Artery Duplex Bilateral Vascular Ultrasound Routine Bilateral carotid artery stenosis Chest pressure Shortness of breath Expected: 07/17/2024 (Approximate), Expires: 07/17/2026[facility] Work Phone: Comment on above:Expected: 07/17/2024 (Approximate), Expires: 07/17/2026Start: 07-17-2024 End: 87-67-4875Dfiakwh encounter smbspgdoa29/27/2025 10:45 AM EST Office Visit [address] [place] [address] Cady Espinosa MD [address] [facility] [address] [place], [place] [address]01 [facility] CenterStart: 22-88-3929Vcvipgz Directive Discussion Advance Directive DiscussionBrecksville VA / Crille Hospitaltart: 01-01-2025Medicare Advantage Annual Wellness VisitMedicare Advantage Annual [facility] Start: 06-08-2024 End: 66-83-6128Oheqcsg encounter mozuiercm67/19/2024 10:45 AM EST Appointment [place] [address] [place] [address] [facility]: 05-15-2024 End: 25-55-2467Rzaos metabolic 2000 panel - Serum or PlasmaBasic Metabolic Panel Lab Routine Uncontrolled hypertension Expected: 05/15/2024 (Approximate), Expi res: 05/08/2025[facility] Work Phone: Comment on above:Expected: 05/15/2024 (Approximate), Expires: 05/08/2025Start: 05-08-2024 End: 59-97-0918RX Heart TransthoracicTransthoracic Echo Complete Echocardiography Routine Former smoker Shortness of breath Expected: 05/08/2024 (Approximate), Expires: 05/08/2026[facility] Work Phone: Comment on above:Expected: 05/08/2024 (Approximate), Expires: 05/08/2026Start: 80-90-6256Peyhi-19 Vaccine ( season)Covid- 19 Vaccine ()[facility]: 43-34-9191FHWFU-19 Vaccine ( season)COVID-19 Vaccine ( season)[facility]: 62-29-6283Owycooxnc vaccinationInfluenza Vaccine (#1)[facility]: 54-11-2735Depqhym referralAs[facility]ab[facility] Work Phone: Start: 98-79-6812C-ray of cervical spineXR cervical spine w flex/extOhioHealth Mansfield Hospitaltart: 05-87-1200B-ray of lumbar spine, six views including bending viewsXR lumbar spine 6V w bending [facility]: 70-25-1557FI Cervical spine Views W flexion and W extensionOhioHealth Mansfield Hospitaltart: 74-98-7172ZM Lumbar spine ViewsOhioHealth Mansfield Hospitaltart: 02-17-2022 End: 68-73-1622XzxuwfprwBlanchard Valley Health System Work Phone: Start: 61-41-5508Oipjxpootilwt resection of bladder neoplasmOR Cysto/TURBT/Bladder Biopsy/Fulg (Not Applicable)[facility]: 02-17-2022 End: 60-09-7219Ohvgptkkv to same day surgery centerDeparted Surgical Day Care [facility] Main CampusStart: 02-13-2022 End: 75-21-5254Lyjezsz encounter procedureDeparted ClinicalBlanchard Valley Health System-Pre-Surgical TestingStart: 69-07-0228Cthyfxxkl aortic aneurysm screeningAbdominal Aortic Aneurysm (AAA) ScreeningWyandot Memorial Hospital: 21-53-4981VUH High Risk: (Elderly (60+) or Population) (1 - Risk 60-74 years 1-dose series)RSV High Risk: (Elderly (60+) or Population) (1 - Risk 60-74 years 1-dose series)[facility]: 02-78-7318RPV Vaccine (1 - Risk 60-74 years 1-dose series)RSV Vaccine (1 - Risk 60-74 years 1-dose series)[facility]: 02-[facility]1996 Diabetes ScreeningDiabetes ScreeningBrecksville VA / [facility] Hospitaltart: 42-13-6556Wvgjribml for malignant neoplasm of colonBrecksville VA [facility] Hospitaltart: 81-15-1373Cmyaf panelLipid ScreeningBrecksville VA / [facility] Hospitaltart: 74-32-1418Wwnoycr ScreeningAnxiety Screening [facility]: 61-09-6016Lkjesbyddn ScreeningDepression Screening [facility]rt: 63-19-5077Hntbbelw mellitus screeningDiabetes Screening [facility]: 86-23-0751Otmwmdahi C screeningHepatitis C ScreeningWyandot Memorial Hospital: 66-47-6138Imzrnbqvx aortic aneurysm screeningAbdominal Aortic Aneurysm ScreeningPark[facility] Health [facility]: 79-48-9614Vdimi panelLipid PanelWyandot Memorial Hospital: 1951Medicare Annual Wellness VisitMedicare Annual Wellness Visit (AWV) [facility]: 32-28-4777Mnkebvaaf for malignant neoplasm of colonWyandot Memorial Hospital: 09-70-2570Oamjwen stimulating hormone measurementTSHillcrest Hospital Claremore – ClaremoreCT Abdomen and Pelvis W contrast IVCT ABD/PEL W IVCON Radiology Routine Malignant neoplasm of urinary bladder, unspecified site (HCC) 09/01/2024 3:07 PM EDT [facility] Work Phone: ct Chest W contrast IVCT CHEST W IVCON Radiology Routine Malignant neoplasm of urinary bladder, unspecified site (HCC) 09/01/2024 3:07 PM EDTClancaster municipal hospital ClinicDermatopathology examDermatopathology exam Pathology and Cytology Timed Neoplasm of unspecified behavior of bone, soft tissue, and skin Release Upon Ordering for 1 Occurrences starting 02/27/2025[facility] Work Phone: comment on above:Release Upon Ordering for 1 Occurrences starting 02/27/2025Microbial culture of sputumTrihealthMR Cervical spine WO and W contrast [facility] HospitalPatient referralBlanchard Valley [facility] Work Phone: UA DIP OB, URINE (POC)UA DIP OB, URINE (POC) Lab Routine Malignant neoplasm of urinary bladder, unspecified site (HCC) 1 O ccurrences starting [address] [place] [address] Work Phone: comment on above:1 Occurrences starting 08/09/2024UA DIP OB, URINE (POC)UA DIP OB, URINE (POC) Lab Routine Malignant neoplasm of urinary bladder, unspecified site (HCC) 1 Occurrences starting 09/13/2024 [facility] CenterComment on above:1 Occurrences starting 09/13/2024UA DIP, URINE (POC)UA DIP, URINE (POC) Lab Routine Malignant neoplasm of urinary bladder, unspecified site (HCC) Ordered: [address] [place] [address] Work Phone: Comment on above:Ordered: 08/02/2024UA DIP, URINE (POC)UA DIP, URINE (POC) Lab Routine Malignant neoplasm of urinary bladder, unspecified site (HCC) Ordered: [address] [place] [address] on above: Ordered: 08/09/2024UA DIP, URINE (POC)UA DIP, URINE (POC) Lab Routine Malignant neoplasm of urinary bladder, unspecified site (HCC) Ordered: [address] [place] [address] Work Phone: comment on above:Ordered: 08/16/2024UA DIP, URINE (POC)UA DIP, URINE (POC) Lab Routine Malignant neoplasm of urinary bladder, unspecified site (HCC) Ordered: [address] [place] [address] Work Phone: comzabz on above:Ordered: 08/30/2024UA DIP, URINE (POC)UA DIP, URINE (POC) Lab Routine Malignant neoplasm of urinary bladder, unspecified site (HCC) Ordered: [address] [place] [address] Work Phone: comosnn on above:Ordered: 09/13/2024 Immunizations Immunization DateImmunizationNotesCare LagevrajMoeduugn43-91-3520syhqjlvj calmette-dena vaccineJENNIFER AMBREEN [facility]06-17-2025bacillus calmette-dena vaccineJENNIFER AMBREEN [facility]06-11-2025bacillus calmette-dena vaccineJENNIFER AMBREEN [facility]02-24-2025influenza virus vaccine, unspecified formulationJr. Stepanic DO Work Phone: [facility] HospitalMfvhampnrh46-65-0856scgimn vaccine recombinant Lionel nPicker [facility]10-03-2023influenza virus vaccine, unspecified formulationPaZ Plane [facility]10-03-2023zoster vaccine recombinantPatrick nPicker [facility]10-27-2022Moderna Bivalent Booster VaccinationKaren MARES Work Phone: [facility] HospitalRwtbjmcaty73-78-0826KTOA-FyE-2 (COVID-19) mRNAMUL.ORD!n79575Lglzrmk NILL [facility]10-07-2022influenza virus vaccine, unspecified formulationMichael NILL [facility] [place] 272270-07-2022Influenza, High-dose Seasonal, Quadrivalent, Preservative Free Karen MARES Work Phone: [facility] HospitalJyxfjtjjny29-39-2374ENMUN-39 mRNA-1273 (Moderna) MD Deandre Monterroso Work Phone: [facility]04-01-2021COVID-19 mRNA-1273 (Huma)MD Deandre Monterroso Work Phone: TrihealthComment on above: Result Comment: 2023-01-20: [id number]-34 mRNA-1273 (Modernvee)MD Deandre Monterroso Work Phone: [facility]healthComment on above: Result Comment: 2023-01-20: MPI5717-68-6600TYYM-SvJ-7 (COVID-19) mRNA-1273 vaccinePatrick WHITNEY [facility] 12643609-66-6197detxpnbbh virus vaccine, unspecified formulationMichael NILL [facility] [place] 272272-03-2020Influenza, Seasonal, Quadrivalent, AdjuvantedMamark MARES Work Phone: [facility] HospitalYezjzzsdmh27-85-9720qpigizsde virus vaccine, unspecified formulationMichael NILL [facility] [place] 272270-14-2020influenza, high dose seasonal, preservative-freeMamark MARES Work Phone: [facility] HospitalOifkfxuvon85-52-1247vtvhmwrsx virus vaccine, unspecified formulationMichael NILL [facility] [place] 272272-09-2019Seasonal, quadrivalent, recombinant, injectable influenza vaccine, preservative freeMamark MARES Work Phone: [facility] HospitalQnobbgksmk46-01-2131wqlwnfjib, injectable, quadrivalent, preservative Sakshi Andrade MD Work Phone: [place] [address]Prabbo76-94-9193zaunepzvf virus vaccine, unspecified formulationNorberto Andrade MD Work Phone: cgrant hospitaland Vgxsvk26-94-5571znnzexail, unspecified formulationMichael NILL [facility]04-08-2019tetanus and diphtheria toxoids, adsorbed, preservative free, for adult use (2 Lf of tetanus toxoid and 2 Lf of diphtheria toxoid)Alex NILL [facility]04-23-2018pneumococcal polysaccharide vaccine, 23 valentMichael NILL [facility]02-01-2017pneumococcal conjugate vaccine, 13 valentMichael NILL [facility]01-09-2014tetanus toxoid, reduced diphtheria toxoid, and acellular pertussis vaccine, adsorbedMichael NILL [facility]09-20-2000Td(adult) unspecified formulationMichael NILL [facility] Payers DatePayer CategoryPayerPolicy ID2025Medicare [id number]-sea [id number] 2021Medicare (Managed Care) [id number] [id number]5 [id number] 2.16.840.3.473014.44011967-76-9184Qtuaxxl9847766 2.16.840.1.197750.3.579.2.593 10-60-4002Oxleqqz6574762 2.16.840.1.115714.3.579.2.16659-56-2890Efqosxv8991425 2.16.840.1.321369.3.579.2.22048-89-9118Hcorgcg0569382 2.16.840.1.557680.3.579.2.96716-87-7861Nxqkyjk4110359 2.16.840.1.722084.3.579.2.77090-87-4038Ibndnus9273531 2.16.840.1.706834.3.579.2.61024-60-0923Hybpnal6903611 2.16.840.1.792572.3.579.2.76308-10-6700Mztqxey0315941 2.16.840.1.811785.3.579.2.71909-30-1571Xdqbyak0922422 2.16.840.1.204016.3.579.2.47104-08-6962Hjfkioh5982030 2.16.840.1.014034.3.579.2.38074-73-4718Uitgune0092275 2.16.840.1.807434.3.579.2.08990-04-3680Xewuefz0779670 2.16.840.1.843945.3.579.2.95992-62-6200Jownxft6718795 2.16.840.1.001380.3.579.2.41089-39-2306Rdtghlb1397333 2.16.840.1.379126.3.579.2.30844-97-0879Dirgalk6839058 2.16.840.1.891832.3.579.2.72364-31-5901Twwqosn6789579 2.16.840.1.728362.3.579.2.02628-39-5767Vjcqkys7385524 2.16.840.1.380489.3.579.2.78219-02-4172Ouirzkw6273009 2.16.840.1.225207.3.579.2.37285-12-3887Kfglqrj2253516 2.16.840.1.759131.3.579.2.89278-59-7223Gnexjvy91124597 2.16.840.1.048224.3.579.2.76120-76-0066Whfgwoc31235359 2.16.840.1.512130.3.579.2.94918-34-6163Syiyavs88799182 2.16.840.1.492936.3.579.2.214375-05-1103Wbwxxxp91256453 2.16.840.1.079421.3.579.2.182719-97-4344Abzgqxe37572924 2.16.840.1.437079.3.579.2.105207-65-9590Jzwzrol96575753 2.16.840.1.290276.3.579.2.048769-95-0629Ooqmdkf90046365 2.16.840.1.530037.3.579.2.968067-92-2757Uuivgnp31335178 2.16.840.1.721112.3.579.2.635226-53-8843Xoyahzs89313322 2.16.840.1.183342.3.579.2.722167-92-6669Ajtsoyi335147089 2.840.1.651599.3.579.2.977098-82-5731Gyhtsig690820889 2.840.1.745178.3.579.2.053709-36-9718Yotvhaw631955693 2.16.840.1.575017.3.579.2.70812-71-7765Xxgecmd639162660 2.840.1.403399.3.579.2.76583-19-0652Vjwzjnn269530041 2.84.1.298557.3.579.2.99675-97-4167Yoeiepn184170717 2.840.1.897411.3.579.2.56083-03-3014Dzjhfdz243643050 2.840.1.304010.3.579.2.46701-73-8652Yxwcvlh407820275 2.840.1.400152.3.579.2.95629-76-3238Cfwfobs377794740 2.840.1.065710.3.579.2.03655-70-0676Olydgru910023939 2.840.1.346495.3.579.2.77210-25-4055Yapuvds18180230 2.840.1.311846.3.579.2.86446-30-5885Zesijtb26755589 2.840.1.569950.3.579.2.04864-13-8671Ayliapr36312291 2.840.1.526772.3.579.2.763222-22-7480Jgickbg45555684 2.16.840.1.582717.3.579.2.351085-48-4045Mtlvqww72506393 2..840.1.625423.3.579.2.357860-00-0560Aeclxxu5463916 2.16.840.1.044018.3.579.2.657533-46-9060Ywhlirr0434537 2..840.1.103609.3.579.2.931959-46-5999Osykgfq1700734 2..840.1.425936.3.579.2.677528-29-9321Nhzilys7754546 2.840.1.517727.3.579.2.411336-07-2223Ueqfsbg3438457 2.0.1.143055.3.579.2.622933-51-9492Njitrrb60796225 2.840.1.318309.3.579.2.24817-56-5227Iiypqts14738981 2.840.1.713239.3.579.2.01185-12-7389Hjrpviv35240174 2.0.1.303402.3.579.2.84239-44-4132Esbvsav00346156 2.840.1.295506.3.579.2.19470-75-0545Eiboibw63819769 2.840.1.459772.3.579.2.69172-28-2118Udkozhk48518486 2.840.1.825997.3.57[id number] 2.840.1.882131.3.57[id number] 2.16840.1.454041.3.57[id number] 2..840.1.949136.3.579.2.727MedicareMedicare5W79M57TJ13 9350o8ua-w4km-51x3-75r6-m6xw64o14qd6Gpjzzqr Health [id number] b20620mz-[id number]-8wcr-5782-9fu91t0axc45OdfrhrzMdafnixfe [facility] [id number] 2.16.840.1.58460[id number] 2.0.1.963279.3.579.2.531 [id number] 2.0.1.177172.3.579.2.531 Social History DateTypeDetailFacilityStart: 10-17-2021 End: 15-35-4485Mhvgdxq smoking status NHISEx-smoker (finding)[facility]Comment on above:pt quit smoking 10+ yrs agoStart: 25-16-9082Aew [facility]tart: 60-83-9977Ejcwlns smoking statusNever smoked tobacco (finding)[facility] Tobacco smoking statusNeverExec[facility] Comment on above:pt quit smoking 10+ yrs agoStart: 05-08-2024 End: 34-17-5833Dst Assigned At [facility] End: 84-58-4120Jiqpgoz of tobacco useCurrent smokerMartins Ferry Hospital Work Phone: End: 96-94-0103Fucfvid of tobacco useCigarette SmokerMartins Ferry Hospital Work Phone: Start: 01-12-2023 End: 99-31-1553Bypdfdf use and exposureSmokeless tobacco non-userMartins Ferry Hospital Work Phone: Start: 05-08-2024 End: 86-03-5476Lxvnugcbw beverage intakeCurrent drinker of alcohol (finding) [place] [facility] Work Phone: Start: 05-08-2024 End: 63-09-6033Qwdkejd of Social functionUnSelect Medical Specialty Hospital - [facility], Inc Work Phone: Start: 15-32-9929Xfgfuza CommentsociallyMartins Ferry Hospital Work Phone: Start: 15-64-5054Qkl assigned at birthNot on file [facility] Work Phone: Start: 04-28-2024 End: 13-90-3292Rdrhjgii to SARS-CoV-2 (event)Not sureMartins Ferry HospitalStart: 09-09-2018 End: 01-28-9192RpdZuxu (finding)[facility] Hospitaltart: 82-13-8896Xgpqwlu Commentcaffeine 3-4 cups per dayNOMS HealthcareSexual OrientationWayne Healthcare Main Campus Medical Equipment Procedure CodeEquipment CodeEquipment Original TextEquipment IdentifierDates Transurethral resection of bladder tumor (TURBT) with cystoscopyPolymeric ureteral stent()[id number] FDAStart: 63-98-4499Sdokslhlawnji, spine, cervical, posterior approachBone-screw internal spinal fixation system, non-sterile()[id number] FDAStart: 27-71-5892Alvmfmhrmzxvg, spine, cervical, posterior approachBone-screw internal spinal fixation system, non-sterile()[id number] FDAStart: 52-93-7530Ygdwbevgyzcnx, spine, cervical, posterior approachBone-screw internal spinal fixation system, non-sterile()[id number] FDAStart: 80-77-3168Ecxyvvhofkleu, spine, cervical, posterior approachBone-screw internal spinal fixation system, non-sterile()[id number] FDAStart: 65-61-5414Jclkmeixoclvt, spine, cervical, posterior approachBone-screw internal spinal fixation system, non-sterile()[id number] FDAStart: 04-18-2020 Goals DatePatient GoalDesired Activity/State Functional Status SozdIygqcmtvefJvfnycLhvqvzer65-77-9406Gzorbcscee StatusN/[facility]01-22-2025Functional StatusN/[facility] [place] 272271-19-2024Functional StatusN/[facility] 64-49-6491Cujoawbanv StatusN/[facility]04-15-2024Functional StatusN/[facility]-07-2023 Functional StatusN/[facility]08-23-2023Functional StatusN/A General Surgery Lymdrrcf44-83-7082Tzigmfvxil StatusN/[facility]09-06-2022Functional StatusN/[facility] Clinical Notes 11-04-2021 to 02-27-2025 Note Date & JouyPkjnSiiikkxz51-10-9333 History of Present illness Narrative* Vasu Mackey MD - 02/27/2025 11:15 AM EDT Images from the original note were not included. Follow up Diagnosis: Actinic Keratosis Location: forearms, hands Last visit: 09/11/2024 Symptoms: red, scaly Status:some areas improved but some are still there Current treatment: Last year used Efudex cream bid x 14 days- had good response All pertinent medical history, medications, and allergies were reviewed. General Exam: alert, oriented to person, place, and time, normal affect, well appearing Unaccompanied A focused exam completed based on patient reported problems, see below: Skin Exam 1. NEOPLASM OF UNSPECIFIED BEHAVIOR OF BONE, SOFT TISSUE, AND SKIN Left Forearm - Posterior Hyperkeratotic papule Lesion biopsy Type of biopsy: tangential Informed consent: discussed and consent obtained Informed consent comment: The risks and benefits of the biopsy were discussed. Risks include but are not limited to bleeding, infection, scarring, pain, and nerve damage. An opportunity to ask questions prior to the procedure was permitted and all questions were answered. Patient was prepped and draped in usual sterile fashion: area cleansed with alcohol. Anesthesia: the lesion was anesthetized in a standard fashion Anesthetic: 1% lidocaine w/ epinephrine 1-100,000 buffered w/ 8.4% NaHCO3 Instrument used: DermaBlade Hemostasis achieved with: electrodesiccation Outcome: patient tolerated procedure well Outcome comment: The specimen was placed in a prelabeled formalin container to be sent for pathology Post-procedure details: sterile dressing applied and wound care instructions given Post-procedure details comment: Emphasized need to contact clinic for any signs of infection, uncontrollable bleeding, or complications. Dressing type: bandage Additional details: Photo taken Amount of lidocaine used: 1.0 cc Specimen A - Dermatopathology exam Differential Diagnosis: AK vs SCC Check Margins: No Size of lesion: 0.6 x 0.6 cm Diagnosis: (D49.2) Neoplasm of unspecified behavior of bone, soft tissue, and skin Plan: Lesion biopsy 2. ACTINIC KERATOSIS (8) Left Forearm - Posterior (5), Left Inferior Shira of Antihelix, Right Forearm - Posterior, Right Upper Arm - Posterior Erythematous scaly papules Patient was counseled regarding these sun-induced growths that can develop into squamous cell carcinoma if left untreated. Discussed treatment with cryotherapy. It was emphasized that any treated lesions that fail to resolve should be re- evaluated. Cryotherapy performed today; see procedure note Diagnosis: Actinic keratosis Indication: Precancerous Location: see skin exam Consent: Verbal consent was obtained and risks were discussed, including, but not limited to risks of scarring, darker or water purifier pigmentary changes, recurrence, incomplete removal and infection. Method: Liquid nitrogen was used to treat the lesion(s) with two 5-10 second freeze-thaw cycles. Number of lesions treated: 8 Post-procedure instructions: Instructions were given orally and in writing. The office will be contacted if the lesion fails to resolve despite treatment, or if a side effect develops such as abnormal crusting, scabbing, redness or tenderness Cryotherapy, skin lesion - Left Forearm - Posterior (5), Left Inferior Shira of Antihelix, Right Forearm - Posterior, Right Upper Arm - Posterior Next Visit: as scheduled documented in this encounterSaint John's HospitalCnfsjsawvn79-49-1474 Hospital Discharge instructions Patient Education 02/26/2025 08:49:06 Cancer Screening for Males Cancer Screening for Males A cancer screening is a test or exam that checks for cancer. Work with your health care provider tocreate a cancer screening schedule that protects your health. Who should have screening? All people who are male should be considered for screening of certain cancers, including colorectalcancer, prostate cancer, lung cancer, and skin cancer. Your health care provider may recommend screenings for other types of cancer if: You have had cancer before. You have a family member with cancer. You have genes that could increase the risk of cancer. You have risk factors for certain cancers, such as current or past use of tobacco products or beingoverweight. What are the benefits of screening? Cancer screening is done to look for cancer in the very early stages, before it spreads and becomesharder to treat and before you would start to notice symptoms. Finding cancer early improves the chances of successful treatment. It may save your life. When should I be screened for cancer? When you should be screened for cancer depends on: Your age. Your medical history and your family's medical history. Certain lifestyle factors, such as smoking or other use of tobacco products. Environmental exposure, such as to asbestos. How is screening done? Colorectal cancer Colorectal cancer screening looks for cancer or for growths called polyps that often form before cancer starts. Tests to look for cancer or polyps include: Colonoscopy or flexible sigmoidoscopy. For these procedures, a flexible tube with a small camera isinserted into the rectum. CT colonography. This test uses X-rays and a contrast dye to check the colon for polyps. Tests to look for cancer in the [...] home and send it to a lab. All adults should have screenings starting at 45 years old and continuing through 75 years old. Formales 76 85 years old, the decision to be screened should be based on a person's preferences, life expectancy, overall health, and prior screening history. Your health care provider may recommend screening before 45 years old. You will have tests every 1 10 years, depending on your results and the type of screening test. People at increased risk should start screening at an earlier age. Talk withyour health care provider about which screening test is right for you and how often you should be screened. Prostate cancer Prostate cancer screening is done with blood tests and a digital rectal exam. During this exam, a health care provider uses a gloved finger to check prostate size. You may need to be screened for prostate cancer if: You have risk factors for prostate cancer, such as being an person or having a close family member with [...] on the results of your blood tests. Prostate cancer screening for males with average risk may start at 50 years old. Males with risk factors may need to be screened earlier, at 40 45 years old. Talk with your health care provider aboutwhether screening is right for you and, if so, how often you should be screened. Lung cancer Lung cancer screening is done [...] packs a day for 10 years. You may need to be screened [...] provider right away if anything looks unusual. Males with a emvbdr-eqzw-bgayif risk for skin cancer may want to see a rn clinical documentation specialist (wrapper rewinder) for an annual body check. Where to find more information [place] [employer]: cancer.org Centers for Disease Control and Prevention: cdc.gov National Cancer [place]: cancer.gov Contact a health care provider if: You have concerns about any signs or symptoms of cancer. These may include: ?Skin problems. You may have: ?Moles of an unusual shape or color. ?Changes in existing moles. ?A sore on your skin that does not heal. ?Tiredness (fatigue) that does not go away. ?Losing weight without trying. ?Blood in your urine or stool. ?Problems with urination. You may have: ?Changes in urination habits. ?Painful urination. ?Painful ejaculation. ?Problems with coughing or breathing. These may include: ?Coughing or trouble breathing that does not go away. ?Coughing up blood. ?Frequent pain or cramping in your abdomen. This information is not intended to replace advice given to you by your health care provider. Make sure you discuss any questions you have with your health care provider. Document Revised: 06/15/2023 Document Reviewed: 12/28/2022 [employer] Patient Education 2023 [employer]. Follow Up Care 10/24/2024 10:44:10 With:DEVONTE NOBLE, Lionel Burgos, URL Address: [address] [place] [phone] When: Unknown Comments:3 mos for cysto/bt ck [facility] 09-08-2025 NotePatient Education Oncology Cancer Screening for Males A cancer screening is a test or exam that checks for cancer. Work with your health care provider tocreate a cancer screening schedule that protects your health. Who should have screening? All people who are male should be considered for screening of certain cancers, including colorectalcancer, prostate cancer, lung cancer, and skin cancer. Your health care provider may recommend screenings for other types of cancer if: ??? You have had cancer before. ??? You have a family member with cancer. ??? You have genes that could increase the risk of cancer. ??? You have risk factors for certain cancers, such as current or past use of tobacco products or being overweight. What are the benefits of screening? Cancer screening is done to look for cancer in the very early stages, before it spreads and becomesharder to treat and before you would start to notice symptoms. Finding cancer early improves the chances of successful treatment. It may save your life. When should I be screened for cancer? When you should be screened for cancer depends on: ??? Your age. ??? Your medical history and your family's medical history. ??? Certain lifestyle factors, such as smoking or other use of tobacco products. ??? Environmental exposure, such as to asbestos. How is screening done? Colorectal cancer Colorectal cancer screening looks for cancer or for growths called polyps that often form before cancer starts. Tests to look for cancer or polyps include: ??? Colonoscopy or flexible sigmoidoscopy. For these procedures, a flexible tube with a small camera is inserted into the rectum. ??? CT colonography. This test uses X-rays and a contrast dye to check the colon for polyps. Tests to look for cancer in the stool (feces) include: ??? Guaiac-based fecal occult blood test (FOBT). This test can find blood in stool. It can be done at home with a kit. ??? Fecal immunochemical test (FIT). This test can find blood in stool. For this test, you will need to collect stool samples at home. ??? Stool DNA test. This test looks for blood in stool and any changes in DNA that can lead to colon cancer. For this test, you will need to collect a stool sample at home and send it to a lab. All adults should have screenings starting at 45 years old and continuing through 75 years old. Formales 76?85 years old, the decision to be screened should be based on a person's preferences, life expectancy, overall health, and prior screening history. Your health care provider may recommend screening before 45 years old. You will have tests every 1?10 years, depending on your results and the type of screening test. People at increased risk should start screening at an earlier age. Talk withyour health care provider about which screening test is right for you and how often you should be screened. Prostate cancer Prostate cancer screening is done with blood tests and a digital rectal exam. During this exam, a health care provider uses a gloved finger to check prostate size. You may need to be screened for prostate cancer if: ??? You have risk factors for prostate cancer, such as being an person or having aclose family member with prostate cancer. ??? You have had gene changes or a genetic condition that was passed on to you from a parent (inherited). These gene changes or genetic conditions include BRCA1 or BRCA2 gene mutations or Ivey syndrome. ??? You have symptoms of prostate cancer, such as problems urinating or problems getting or keepingan erection (erectile dysfunction). When you have been screened for prostate cancer, future screening may be recommended based on the results of your blood tests. Prostate cancer screening for males with average risk may start at 50 years old. Males with risk factors may need to be screened earlier, at 40?45 years old. Talk with your health care provider aboutwhether screening is right for you and, if so, how often you should be screened. Lung cancer Lung cancer screening is done with a CT scan that looks for abnormal changes in the lungs. Discuss lung cancer screening with your health care provider if you are 50?80 years old and if any of the following apply to you: ??? You currently smoke. ??? You used to smoke heavily. ??? You have a smoking history of 1 pack of cigarettes a day for 20 years or 2 packs a day for 10 years. You may need to be screened [...] provider right away if anything looks unusual. Males with a liazat-dcdr-pxdjki risk for skin cancer may want to see a rn clinical documentation specialist (dermatologi (more content not included)...[facility]07-29-2025 History of Present illness Narrative* Jr. 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 [...] length. He has been taking omega XL crtb-qer-ebqlomj and had good relief with this. We [...] for requiring urgent evaluation. documented in this encounterSaint John's HospitalLiefacxwco22-27-4299 NotePatient Education Oncology Bladder Cancer Bladder cancer is [...] Follow these instructions at home: ??? Take zcuv-xzz-yprupyd and prescription medicines only as told by your health care provider. ??? If you were prescribed an antibiotic medicine, take it as told by your health care provider. Donot stop using the antibiotic even if you [...] Your team may be able to recommend waysto get relief. ??? Keep all follow-up visits. This is important. Where to find more information ??? [place] [employer] (ACS): cancer.org ??? National Cancer [place] (NCI): cancer.gov Contact a health care provider [...] physical exam, lab tests, imaging tests, and yoursymptoms. ??? Your health care provider may recommend one or more types of treatment based on the stage of your cancer. ??? Consider joining a support group. This may help you learn to deal with the stress of having bladder cancer. This information is n (more content not included)...[facility] 12-13-2024 Instructions* Patient Instructions* Norberto Andrade MD - 12/13/2024 1:46 PM EDT Blood work today F/u with Urology . documented in this encounterUniversity Hospitals Parma [facility]06-25-2025 History of Present illness Narrative* Norberto Andrade MD - 12/13/2024 1:00 PM EDT Images from the original note were not included. PATIENT NAME: Mary Diaz CLINIC NO.: [id number] ATTENDING PHYSICIAN: Norberto Andrade MD DATE OF SERVICE: 12/13/[address] Lionel Whitney [address] [facility] [address] thank you for referring Mary Diaz for [...] atleast 1 fragment without obvious stromal invasion (dental specialist). 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 Urology recommended induction [...] tablet by mouth at bedtime as needed. sqowerawthi-tsqxlltjl-arcsviov (TRELEGY ELLIPTA) 100-62.5-25 mcg inhalation powder = 1 puff(s), Inhalation, Daily, Refills(s) 0 iv contrast (will be provided with radiology test) CT Chest ABD/PEL-Inject, intravenously, once for1 dose.No IV access, insert saline lock prior [...] both Oral and Rectal, Enteric Tube, Stoma orIndwelling Catheter, Enteric Contrast as designated per enteric [...] Take 100 mg by mouth as needed. qrtvhtnzonk-znspjdrfg-emxuvswd (TRELEGY ELLIPTA) 100-62.5-25 mcg inhalation powder Inhale 1 Puff asinstructed once daily. 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 - Urology recommended [...] here if needed. Dear Dr. Lionel Whitney [address] [place] [address] thank you for allowing me to participate in [facility], if there are any questions or concerns please do not hesitate to contact me at the number below. I spent a total of 20 minutes on the date of the service which included preparing to see the patient, plou-zs-emel patient care, completing clinical documentation, obtaining and/or reviewing separately obtained history, performing a medically appropriate examination, counseling and educating the pat ient/family/caregiver, ordering medications, tests, or procedures, communicating with other HCPs (not separately reported), independently interpreting results (not separately reported), communicatingresults to the patient/family/caregiver, and care coordination (not separately reported). Norberto Andrade MD. Hematology/Medical Oncology [facility] [phone] CC: documented in this encounterUniversity Hospitals Parma Medical Center06-25-2025 NoteHNO ID: [id number] Author: NORBERTO ANDRADE MD Service: ? Author Type: Physician Type: Progress Notes Filed: 12/13/2024 14:20 Note Text: PATIENT NAME: [facility] NO.: [id number] ATTENDING PHYSICIAN: Norberto Andrade MD DATE OF SERVICE: 12/13/[address] Lionel Whitney [address] [place] [address] thank you for referring Mary Diaz for [...] atleast 1 fragment without obvious stromal invasion (dental specialist). 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 Urology recommended induction [...] tablet by mouth at bedtime as needed. rcafonmgniv-fjozgqdev-ttxwstou (TRELEGY ELLIPTA) 100-62.5-25 mcg inhalation powder = [...] Take 100 mg by mouth as needed. lbcbgzqakfb-obgfresnv-cduvbfgw (TRELEGY ELLIPTA) 100-62.5-25 mcg inhalation powder Inhale [...] SHOULDER SURGERY HX Reconstructi (more content not included)...[facility]06-23-2025 NoteUT [facility] Subject[facility] Mary Diaz is a 74 y.o. year old male patient being seen for to establish care as a new patient. 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 Patient states he is here for a second opinion. Patient was sent to cardiology by [employer] for uncontrolled hypertension. Patient Active Problem List [...] 75 mg EC tabl (more content not included)...[facility]06-18-2025 History of Present illness Narrative* Bradford Colmenares, DO - 12/06/2024 8:45 AM EDT Images from the original note [...] NO PT PAIN MGMT; MULTIPLE INJ TRIED METAL MINER BLASTING; SOME TEMP RELIEF S/P CORTISONE INJ - WITH RELIEF. NOTES HE IS DOING BETTER. CONTINUES HEP. ADMITS LATERAL DISCOMFORT- WORSE HS. ADMITS RADIATION TO KNEE. GOOD [...] 200 mg, Oral, Daily, Take with food Vrojkjandpu-Jpnduzbxi-Vaantf (Trelegy Ellipta) 100-62.5-25 MCG/ACT aerosol powder Inhale. [...] states pain with palpation is improved from priorvisit significantly Range of Motion Left Left hip [...] bursitis. We'll see him back in 1 monthif his symptoms persist or worsen we may [...] for requiring urgent evaluation. documented in this encounterSaint John's HospitalRzntedpivb97-31-4476 Hospital Discharge instructions Patient Education 12/05/2024 09:58:02 [...] cells. Follow these instructions at home: Take paby-dxq-pxnculv and prescription medicines only as told by your health care provider. If you were prescribed an antibiotic medicine, take it as told by your health care provider. Do notstop using the antibiotic even if you start to feel better. Eat a healthy diet. Some treatments might affect your appetite. Do not use any products that contain nicotine or tobacco. These products include cigarettes, chewing tobacco, and vaping devices, such as e-cigarettes. If you need help quitting, ask your health careprovider. Consider joining a support group. This may help you learn to deal with the stress of having bladdercancer. Tell your cancer care team if you develop side effects. Your team may be able to recommend ways to get relief. Keep all follow-up visits. This is important. Where to find more information [place] [employer] (ACS): cancer.org National Cancer [place] (NCI): cancer.gov Contact a health care provider [...] to deal with the stress of having bladdercancer. This information is not intended to replace advice given to you by your health care provider. Make sure you discuss any questions you have with your health care provider. Document Revised: 05/18/2022 Document Reviewed: 05/18/2022 [employer] Patient Education 2023 [employer]. Follow Up Care 11/20/2024 11:57:52 With:AMBREEN HELMS, LAUREN Higginbotham, URL Address: [address] [place] [address] When:Within 1 Week(s) [facility] 06-17-2025 NotePatient Education Oncology Bladder Cancer Bladder cancer is [...] Follow these instructions at home: ??? Take jbqg-sye-vrcycwi and prescription medicines only as told by your health care provider. ??? If you were prescribed an antibiotic medicine, take it as told by your health care provider. Donot stop using the antibiotic even if you [...] Your team may be able to recommend waysto get relief. ??? Keep all follow-up visits. This is important. Where to find more information ??? [place] [employer] (ACS): cancer.org ??? National Cancer [place] (NCI): cancer.gov Contact a health care provider [...] physical exam, lab tests, imaging tests, and yoursymptoms. ??? Your health care provider may recommend one or more types of treatment based on the stage of your cancer. ??? Consider joining a support group. This may help you learn to deal with the stress of having bladder cancer. This information is n (more content not included)...[facility] 11-29-2024 NotePatient Education Oncology Bladder Cancer Bladder cancer is [...] Follow these instructions at home: ??? Take psmm-bzl-eozzemo and prescription medicines only as told by your health care provider. ??? If you were prescribed an antibiotic medicine, take it as told by your health care provider. Donot stop using the antibiotic even if you [...] Your team may be able to recommend waysto get relief. ??? Keep all follow-up visits. This is important. Where to find more information ??? [place] [employer] (ACS): cancer.org ??? National Cancer [place] (NCI): cancer.gov Contact a health care provider [...] physical exam, lab tests, imaging tests, and yoursymptoms. ??? Your health care provider may recommend one or more types of treatment based on the stage of your cancer. ??? Consider joining a support group. This may help you learn to deal with the stress of having bladder cancer. This information is n (more content not included)...[facility] 10-27-2024 History of Present illness Narrative* SUZAN Mehta - 10/27/2024 9:45 AM EDT Images from the original note were not included. Orthopedic Office note: NAME: Mary Diaz : 1950 EST PT RECHECK LT HIP PAIN 01/2024- S/P LT HIP BURSA IN 10/06/24; MINIMAL RELIEF XRAY LT HIP 07/04/24 [facility] (PUSHED INTO PACS) NO MRI LT HIP BURSA INJ 10/06/24 PAIN MANAGEMENT; MULTIPLE INJ TRIED METAL MINER BLASTING; SOME TEMP RELIEF CONTINUES TO HAVE LATERAL [...] with certain motions such as internal rotation whilesleeping and he has difficulty with his sleep on the side. He admits that his hip pain is affectinghis activities of daily living. Diagnostic plan: Given [...] requiring urgent evaluation. Visit was preformed using [employer]river pilot speech recognition. documented in this encounterSaint John's [id number] Hospital Discharge instructions Patient Education 10/24/2024 10:28:54 [...] Up Care 09/04/2024 13:08:22 With:Lionel WHITNEY Address: [address] [place], [place] [id number] Business (1) When: Unknown Comments:Office will call to schedule follow up [facility] [id number] NotePatient Education Custom Cystoscopy ??? Voiding after [...] if you have a fever over 100 degrees.[facility] 10-09-2024 NotePatient Education Urology Cystoscopy Cystoscopy is a procedure [...] including vitamins, herbs, eye drops, creams, and ommx-oux-bgndbgq medicines. ??? Any problems you or family [...] tells you to take them. ??? Taking cgwv-lvk-jjmfrkj medicines, vitamins, herbs, and supplements. Tests You [...] cystoscope to fill your bladder. The fluid willstretch your bladder so that your health care [...] these instructions at home: Medicines ??? Take uedw-scn-cyauhry and prescription medicines only as told by your health care provider. ??? If you were prescribed an antibiotic medicine, take it as told by your health care provider. Donot stop taking the antibiotic even if you [...] testing (biopsy) during your (more content not included)...[facility]04-18-2025 History of Present illness Narrative* SUZAN Mehta - 10/06/2024 9:45 AM EDTAssociated Order(s): L Inj/Asp: L greater trochanteric bursa Post-Procedure Diagnose(s): Trochanteric bursitis of left hip Images from the original note were not included. Orthopedic Office note: NAME: Mary Diaz : 1950 NEW PT WITH LT HIP PAIN 01/2024- DENIES INJURY- PAIN MANAGEMENT TX; XRAYS/MULTIPLE INJ XRAY LT HIP 07/04/24 [facility] (CALLED TO HAVE IMAGES PUSHED) NO MRI PAIN MANAGEMENT; MULTIPLE INJ TRIED METAL MINER BLASTING; SOME TEMP RELIEF C/O PAIN LATERAL HIP-CONSTANT [...] requiring urgent evaluation. Visit was preformed using [employer]river pilot speech recognition. documented in this encounterSaint John's [id number] NoteHNO ID: [id number] Author: JEFFREY BABB RN Service: ? Author [...] is free for discharge when finished. Jeffrey aBbb RNParkview Health03-26-2025 History of Present illness Narrative* Jeffrey Babb RN - 09/13/2024 3:13 PM EDT 1312 -- Pt presents for BCG tx #6; denies any urinary symptoms or complaints at this time, providervisit prior to treatment today. 1320-- Urojet instilled, followed by 16 fr mills via sterile technique without issue. Clear, yellowurine return into collection bag. 10 mL NS inflated to catheter balloon. Pt aware allowing for complete bladder drainage prior to BCG instillation, clear yellow urine in mills tubing. Pt in position of comfort, call alexander in reach, visitor cartside, will continue monitoring. 1340 -- Mills tubing clamped and BCG instilled per orders. Pt aware to rotate self every 15 mins x2hrs for complete dwell time. Visitor cartside to [...] issue. Pt dressing independently and aware he isfree for discharge when finished. Jeffrey Babb, NATHALIE documented in this encounterUniversity Hospitals Parma Medical Center03-26-2025 NoteHNO ID: [id number] Author: SUZANNA WATERS MA Service: ? Author Type: Water Purifier Type: Progress Notes Filed: 09/13/2024 13:46 Note Text: UA performed as ordered. [facility] History of Present illness Narrative* Suzanna Waters MA - 09/13/2024 1:45 PM EDT UA performed as ordered. Suzanna Waters MA documented in this encounterUniversity Hospitals Parma Medical Center03-26-2025 Instructions* Patient Instructions* Norberto Andrade MD - 09/13/2024 1:09 PM EDT Last BCG treatment today Labs today F/u with urology F/u in 3 months documented in this encounterUniversity Hospitals Parma Medical Center03-26-2025 History of Present illness Narrative* Norberto Andrade MD - 09/13/2024 1:00 PM EDT Images from the original note were not included. PATIENT NAME: Mary Diaz [facility] NO.: [id number] ATTENDING PHYSICIAN: Norberto Andrade MD DATE OF SERVICE: 09/13/[address] Lionel Whitney [address] [facility] [address] thank you for referring Mary Diaz for [...] atleast 1 fragment without obvious stromal invasion (dental specialist). 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 Urology recommended induction [...] tablet by mouth at bedtime as needed. zcstcyhiwrz-yagmcxlip-zpnspscs (TRELEGY ELLIPTA) 100-62.5-25 mcg inhalation powder = 1 puff(s), Inhalation, Daily, Refills(s) 0 iv contrast (will be provided with radiology test) CT Chest ABD/PEL-Inject, intravenously, once for1 dose.No IV access, insert saline lock prior [...] both Oral and Rectal, Enteric Tube, Stoma orIndwelling Catheter, Enteric Contrast as designated per enteric [...] Take 100 mg by mouth as needed. pzvqrdmnbeg-zjwaduzwr-poortgsk (TRELEGY ELLIPTA) 100-62.5-25 mcg inhalation powder Inhale 1 Puff asinstructed once daily. No current facility-administered medications for [...] Range Status 08/16/2024 8.8 % Final Abs [place] Date Value Ref Range Status 08/16/2024 0.96 [...] Final path showed a small focus of borderlinehigh grade papillary urothelial carcinoma in atleast 1 fragment without obvious stromal invasion (dental specialist). 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 - Urology recommended [...] in [address] Lionel Whitney [address] [place] [address] thank you for allowing me to participate in Mary Diaz care, if there are any questions or concerns please do not hesitate to contact me at the number below. I spent a total of 30 minutes on the date of the service which included preparing to see the patient, pshd-sd-lbtr patient care, completing clinical documentation, obtaining and/or reviewing separately obtained history, performing a medically appropriate examination, counseling and educating the pat ient/family/caregiver, ordering medications, tests, or procedures, communicating with other HCPs (not separately reported), independently interpreting results (not separately reported), communicatingresults to the patient/family/caregiver, and care coordination (not separately reported). Norberto Andrade MD. Hematology/Medical Oncology [facility] [place] [phone] CC: documented in this encounterUniversity Hospitals Parma Medical Center03-26-2025 NoteHNO ID: [id number] Author: NORBERTO ANDRADE MD Service: ? Author Type: Physician Type: Progress Notes Filed: 09/13/2024 13:18 Note Text: PATIENT NAME: Mary Diaz CLINIC NO.: [id number] ATTENDING PHYSICIAN: Norberto Andrade MD DATE OF SERVICE: 09/13/[address] Lionel Whitney [address] [place] [address] thank you for referring Mary Diaz for [...] atleast 1 fragment without obvious stromal invasion (dental specialist). 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 Urology recommended induction [...] tablet by mouth at bedtime as needed. lqtlllehorj-sdgzqexbf-djhnavcq (TRELEGY ELLIPTA) 100-62.5-25 mcg inhalation powder = [...] Take 100 mg by mouth as needed. gixjcilnebd-bknpajuua-eevpihms (TRELEGY ELLIPTA) 100-62.5-25 mcg inhalation powder Inhale [...] changes in hear (more content not included)... [facility]03-14-2025 History of Present illness Narrative* Porsha Smith RN - 09/01/2024 1:15 PM EDT Radiology Service Progress Note DATE OF SERVICE: [...] creatinine assay has traceable calibration to isotope dilution- mass spectrometry. Refer to KDIGO guidelines for clinical interpretation. In patients with unstable renal function, e.g. those with acute kidney injury, the eGFRmay not accurately reflect actual GFR. P.O.C.T. RESULTS: POC done: Yes, See Lab Tab September 01, 2024 TREATMENT: N/A IV SITE: Ambulatory: A peripheral IV was started in the Right antecubital site with a Angio cath: 20 gauge. IV SITE APPEARANCE: Clean,Dry and Intact SIGNATURE: Porsha Smith RN PATIENT NAME: Mary Diaz DATE: September 01, 2024 TIME: 1:15 PM * Reji Fuentes, RT(R) - 09/01/2024 1:15 PM EDT Radiology Service Progress Note PATIENT NAME: Mary Diaz DATE OF SERVICE: September 01, 2024 TIME: 3:08 PM PATIENT IDENTITY VERIFICATION COMPLETED USING TWO (2) IDENTIFIERS: Name and Date of confirmedby patient verbally. FALL SCREENING: Has the patient had 2 falls in the last year or 1 fall with injury or currently using an Ambulatory Assistive Device (Walker, Cane, Wheelchair, Crutches, etc.)? No PATIENT GENDER DATA: Assigned male at PATIENT RELEVANT IMPLANT DATA REVIEWED: Not Applicable PATIENT PRESENTS WITH AN IMPLANTABLE OR ATTACHED LOCAL AREA NETWORK SYSTEMS ADMINSTRATOR: No RADIOLOGY DEPARTMENT: CT; Exam(s) Completed: Chest Abdomen Pelvis PERIPHERAL IV DATA: Site assessment: Clean,Dry and Intact, Site disposition Discontinued SIGNED BY: STEVE Ca) September 01, 2024 3:08 PM documented in this encounterUniversity Hospitals Parma Medical Center03-14-2025 NoteHNO ID: [id number] Author: REJI FUENTES RT(R) Service: ? Author Type: Technologist [...] PATIENT PRESENTS WITH AN IMPLANTABLE OR ATTACHED LOCAL AREA NETWORK SYSTEMS ADMINSTRATOR: No RADIOLOGY DEPARTMENT: CT; Exam(s) Completed: Chest Abdomen Pelvis PERIPHERAL IV DATA: Site assessment: Clean,Dry and Intact, Site disposition Discontinued SIGNED BY: RT Roby(Aubrey) September 01, 2024 3:08 [facility]03-14-2025 NoteHNO ID: [id number] Author: PORSHA SMITH RN Service: ? Author [...] Diaz DATE: September 01, 2024 TIME: 1:15 [facility]03-12-2025 NoteHNO ID: [id number] Author: SUZANNA WATERS MA Service: ? Author Type: Water Purifier Type: Progress Notes Filed: 08/30/2024 13:24 Note Text: UA performed as ordered. Suzanna Waters [facility] 08-30-2024 History of Present illness Narrative* Suzanna Waters MA - 08/30/2024 1:21 PM EDT UA performed as ordered. Suzanna Waters MA documented in this encounterUniversity Hospitals Parma Medical Center03-12-2025 NoteHNO ID: [id number] Author: ALICE PEARCE RN Service: ? Author [...] free for discharge when finished. Alice Pearce RNParkview Health03-12-2025 History of Present illness Narrative* Alice Pearce RN - 08/30/2024 1:03 PM EDT 1301 -- Pt presents for BCG tx #5; denies any urinary symptoms or complaints. UA obtained per orders and sent to be ran to r/o UTI. Pt prepping for mills. 1315 -- UA negative (trace leuks) and proceeding with tx. Urojet instilled, followed by 16 fr foleyvia sterile technique without issue. Clear, yellow urine return into collection bag. 10 mL NS inflated to catheter balloon. Pt aware allowing for complete bladder drainage prior to BCG instillation. Pt in position of comfort, call alexander in reach, visitor cartside, will continue monitoring. 1345 -- Bladder drainage complete with ~75 mL clear, yellow urine into collection bag. Mills tubingclamped and BCG instilled per orders. Pt aware [...] finished. Alice Pearce RN documented in this encounterUniversity Hospitals Parma Medical Center03-05-2025 NoteHNO ID: [id number] Author: DAISY YOON LSW Service: ? Author Type: Butt Trimmer Type: Progress Notes Filed: 08/23/2024 16:37 Note Text: SW attempted to meet with Patient today. He was with a nurse at the time of the attempt. SW will try again to meet with Patient to introduce SW services and complete a psychosocial assessment. RADHA Leary Goals of Care Advance Directives are not on file.[facility]03-05-2025 History of Present illness Narrative* Daisy Yoon LSW - 08/23/2024 4:36 PM EST SW attempted to meet with Patient today. He was with a nurse at the time of the attempt. SW will try again to meet with Patient to introduce SW services and complete a psychosocial assessment. RADHA Leary Goals of Care Advance Directives are not on file. documented in this encounterUniversity Hospitals Parma Medical Center03-05-2025 NoteHNO ID: [id number] Author: NYDIA LARA RN Service: ? Author [...] well. 1624- patient d/c'd home. Nydia Lara RNParkview Health03-05-2025 History of Present illness Narrative* Nydia Lara RN - 08/23/2024 4:05 PM EST 1315- Patient arrived to infusion room in stable condition. Patient's VSS, 139/81 56, 16, 97.5 F 99% RA. Collected urine for UA and sent to SC station for POC testing. Awaiting results. Patient [...] and reminded patient and to turn every 15minutes. Patient verbalized understanding. Call alexander within reach. Patient denies needs at this time. 1510- patient tolerating well. Denies needs at this time. 1612- unclamped patient to gravity drain. 1620- d/c'd mills. Approximately 400 cc's dark yellow urine in gravity bag. Patient tolerated well. 1624- patient d/c'd home. Nydia Lara RN documented in this encounterUniversity Hospitals Parma Medical Center03-05-2025 NoteHNO ID: [id number] Author: SANTOSH DEL RIO MA Service: ? Author Type: Water Purifier Type: Progress Notes Filed: 08/23/2024 13:29 Note Text: UA performed as ordered. Santosh Del Rio [facility]03-05-2025 History of Present illness Narrative* Santosh Del Rio MA - 08/23/2024 1:28 PM EST UA performed as ordered. Santosh Del Rio MA documented in this encounterUniversity Hospitals Parma Medical Center02-26-2025 NoteHNO ID: [id number] Author: LAUREN JOHNSON, NATHALIE Service: ? Author Type: Registered Nurse [...] without difficulty and approx 300cc urine in bag.[facility]02-26-2025 History of Present illness Narrative* Lauren Johnson RN - 08/16/2024 1:52 PM EST 1330 urine sent for POC 1343 urine [...] 300cc urine in bag. documented in this encounterUniversity Hospitals Parma Medical Center02-26-2025 NoteHNO ID: [id number] Author: CYDNEY HONEYCUTT MA Service: ? Author Type: Water Purifier Type: Progress Notes Filed: 08/16/2024 13:53 Note Text: Back office UA test performed. Results entered in [employer] and doctor notified. [facility]02-26-2025 History of Present illness Narrative* Cydney Honeycutt MA - 08/16/2024 1:48 PM EST Back office UA test performed. Results entered in [employer] and doctor notified. Cydney Honeycutt MA documented in this encounterUniversity Hospitals Parma Medical Center02-26-2025 Instructions* Patient Instructions* Norberto Andrade MD - 08/16/2024 1:25 PM EST Treatment today and every week Ordered CT scans F/u in 4 weeks documented [place] encounterNancy [place] [address]-26-2025 History of Present illness Narrative* Norberto Andrade MD - 08/16/2024 1:00 PM EST Images from the original note were not included. PATIENT NAME: Mary Diaz CLINIC NO.: [id number] ATTENDING PHYSICIAN: Norberto Andrade MD DATE OF SERVICE: 08/16/[address] [facility] Whitney [address] [facility] [address] thank you for referring Mary Diaz for [...] atleast 1 fragment without obvious stromal invasion (dental specialist). 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 Urology recommended induction [...] Take 100 mg by mouth as needed. knhrafjmwmo-ynadrjudf-emtykzel (TRELEGY ELLIPTA) 100-62.5-25 mcg inhalation powder Inhale 1 Puff asinstructed once daily. No current facility-administered medications for [...] Range Status 07/26/2024 9.2 % Final Abs [place] Date Value Ref Range Status 07/26/2024 0.62 [...] Final path showed a small focus of borderlinehigh grade papillary urothelial carcinoma in atleast 1 fragment without obvious stromal invasion (dental specialist). 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 - Urology recommended induction BCG x 6 treatments. PLAN: - Doing well - Proceed with week 3 intravesical BCG treatment today. - Tolerating well so far. - Ordered CT scans - Check CBC CMP PSA. - All his questions answered in detail - F/u in [address] Lionel Whitney [address] [place] [address] thank you for allowing me to participate in Mary Diaz care, if there are any questions or concerns please do not hesitate to contact me at the number below. I spent a total of 30 minutes on the date of the service which included preparing to see the patient, kwvz-ef-ydek patient care, completing clinical documentation, obtaining and/or reviewing separately obtained history, performing a medically appropriate examination, counseling and educating the pat ient/family/caregiver, ordering medications, tests, or procedures, communicating with other HCPs (not separately reported), independently interpreting results (not separately reported), communicatingresults to the patient/family/caregiver, and care coordination (not separately reported). Norberto Andrade MD. Hematology/Medical Oncology [facility] [place] [phone] CC: documented in this encounterUniversity Hospitals Parma Medical Center02-26-2025 NoteHNO ID: [id number] Author: NORBERTO ANDRADE MD Service: ? Author Type: Physician Type: Progress Notes Filed: 08/16/2024 13:29 Note Text: PATIENT NAME: Mary Diaz CLINIC NO.: [id number] ATTENDING PHYSICIAN: Norberto Andrade MD DATE OF SERVICE: 08/16/[address] Lionel Whitney [address] [place] [address] thank you for referring Mary Diaz for [...] atleast 1 fragment without obvious stromal invasion (dental specialist). 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 Urology recommended induction [...] Take 100 mg by mouth as needed. vzwxgqqwesy-ymyebswku-fcbntvmt (TRELEGY ELLIPTA) 100-62.5-25 mcg inhalation powder Inhale [...] No nipple change or (more content not included)...[facility]02-19-2025 NoteHNO ID: [id number] Author: ALICE PEARCE RN Service: ? Author [...] ready for discharge when dressed. Alice Pearce RNParkview Health02-19-2025 History of Present illness Narrative* Alice Pearce RN - 08/09/2024 4:25 PM EST 1620 -- BCG dwell time complete; mills tubing unclamped and allowing bladder to drain at this time. 1633 -- Bladder drainage complete, ~400 mL clear, yellow urine in collection bag. 10 mL NS removed from catheter balloon and mills d/c'ed without issue. Pt dressing independently, at side, readyfor discharge when dressed. Alice Pearce RN * Monse Vidal RN - 08/09/2024 2:27 PM EST 1400: UA collected and negative results, pt [...] 1544: Pt tolerating well. documented in this encounterUniversity Hospitals Parma Medical Center02-19-2025 NoteHNO ID: [id number] Author: MONSE VIDAL RN Service: ? Author [...] turn with no complaints. 1544: Pt tolerating well.[facility]02-19-2025 NoteHNO ID: [id number] Author: CYDNEY HONEYCUTT MA Service: ? Author Type: Water Purifier Type: Progress Notes Filed: 08/09/2024 13:50 Note Text: Back office UA test performed. Results entered in [employer] and doctor notified. Cydney Honeycutt [facility]02-19-2025 History of Present illness Narrative* Cydney Honeycutt MA - 08/09/2024 1:36 PM EST Back office UA test performed. Results entered in [employer] and doctor notified. Cydney Honeycutt MA documented in this encounterUniversity Hospitals Parma Medical Center02-17-2025 Telephone encounter Note * Telephone Encounter - Ingrid Ugalde RN - 08/07/2024 1:29 PM EST CYCLE 1/DAY 1 POST TREATMENT CALL Today's [...] after hours number protocol. Ingrid Ugalde RN [facility] Work Phone: [phone] 307-160102-17-2025 Miscellaneous Notes* Telephone Encounter - Ingrid Ugalde RN - 08/07/2024 1:29 PM EST CYCLE 1/DAY 1 POST TREATMENT CALL Today's [...] protocol. Ingrid Ugalde RN documented in this encounterUniversity Hospitals Parma Medical Center02-12-2025 NoteHNO ID: [id number] Author: KERON KELLY RN Service: ? Author [...] PSS for follow up appointments. Keron Kelly RNParkview Health02-12-2025 History of Present illness Narrative* Keron Kelly, NATHALIE - 08/02/2024 12:46 PM EST 0920: 16FR mills catheter inserted using lidocaine [...] appointments. Keron Kelly RN documented in this encounterUniversity Hospitals Parma Medical Center02-12-2025 Instructions* Patient Instructions* Norberto Andrade MD - 08/02/2024 9:05 AM EST BCG treatment today and every week F/u in 2 weeks documented in this encounterNancy Ville [address]-12-2025 NoteHNO ID: [id number] Author: SANTOSH DEL RIO MA Service: ? Author Type: Water Purifier Type: Progress Notes Filed: 08/02/2024 08:51 Note Text: UA performed as ordered. Santosh Del Rio [facility]02-12-2025 History of Present illness Narrative* Santosh Del Rio MA - 08/02/2024 8:49 AM EST UA performed as ordered. Santosh Del Rio MA documented in this encounter[address]12-2025 History of Present illness Narrative* Norberto Andrade MD - 08/02/2024 8:30 AM EST Images from the original note were not included. PATIENT NAME: Mary Diaz [facility] NO.: [id number] ATTENDING PHYSICIAN: Norberto Andrade MD DATE OF SERVICE: 08/02/[address] Lionel Whitney [address] [facility] [address] thank you for referring Mary Diaz for [...] atleast 1 fragment without obvious stromal invasion (dental specialist). 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 Urology recommended induction [...] Take 100 mg by mouth as needed. ezuqfftzxbr-gvwgrbpkq-irsbdgdc (TRELEGY ELLIPTA) 100-62.5-25 mcg inhalation powder Inhale 1 Puff asinstructed once daily. No current facility-administered medications for [...] Range Status 07/26/2024 9.2 % Final Abs [place] Date Value Ref Range Status 07/26/2024 0.62 [...] Final path showed a small focus of borderlinehigh grade papillary urothelial carcinoma in atleast 1 fragment without obvious stromal invasion (dental specialist). 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 - Urology recommended induction BCG x 6 treatments. PLAN: - Doing well - Proceed with week 1 intravesical BCG treatment today. - Recent blood work is essentially unremarkable. - All his questions answered in detail - F/u in [address] Lionel Whitney [address] [place] [address] thank you for allowing me to participate in Mary Diaz care, if there are any questions or concerns please do not hesitate to contact me at the number below. I spent a total of 30 minutes on the date of the service which included preparing to see the patient, rbik-tp-eeou patient care, completing clinical documentation, obtaining and/or reviewing separately obtained history, performing a medically appropriate examination, counseling and educating the pat ient/family/caregiver, ordering medications, tests, or procedures, communicating with other HCPs (not separately reported), independently interpreting results (not separately reported), communicatingresults to the patient/family/caregiver, and care coordination (not separately reported). Norberto Andrade MD. Hematology/Medical Oncology [facility] [place] [phone] CC: documented in this encounterUniversity Hospitals Parma Medical [facility]25 NoteHNO ID: [id number] Author: NORBERTO ANDRADE MD Service: ? Author Type: Physician Type: Progress Notes Filed: 08/02/2024 09:15 Note Text: PATIENT NAME: Mary Diaz [facility] NO.: [id number] ATTENDING PHYSICIAN: Norberto Andrade MD DATE OF SERVICE: 08/02/[address] Lionel Whitney [address] [facility] [address] thank you for referring Mary Diaz for [...] atleast 1 fragment without obvious stromal invasion (dental specialist). 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 Urology recommended induction [...] Take 100 mg by mouth as needed. fiofrrdeswi-jtmpeoiid-nysjzxea (TRELEGY ELLIPTA) 100-62.5-25 mcg inhalation powder Inhale [...] No pain to percussion (more content not included)...[facility]02-11-2025 Telephone encounter Note* Telephone Encounter - Esther Patterson - 08/01/2024 12:07 PM EST Spoke with patient over the phone today. Patient is active with [employer], LOC 80%, $0 deductible has $0 remaining, $3500 OOP has $3400 remaining. Estimate shows patient financial responsibility is $134.16 for each treatment in 2024 until oop max is reached. Patient stated understanding. Radha hurtado #[id number]. There is currently no Bladder funding available, but will add him to my wait list. [employer] completed over the phone. He was very appreciative of my phone call. [facility]02-11-2025 Miscellaneous Notes* Telephone Encounter - Esther Patterson - 08/01/2024 12:07 PM EST Spoke with patient over the phone today. Patient is active with [employer], LOC 80%, $0 deductible has $0 remaining, $3500 OOP has $3400 remaining. Estimate shows patient financial responsibility is $134.16 for each treatment in 2024 until oop max is reached. Patient stated understanding. Re bryant #[id number]. There is currently no Bladder funding available, but will add him to my wait list. Leatha completed over the phone. He was very appreciative of my phone call. documented in this encounterUniversity Hospitals [facility]02-05-2025 NoteHNO ID: [id number] Author: INGRID UGALDE RN Service: ? Author [...] minutes REFERRAL (RECOMMENDATION): N/A Ingrid Ugalde RN Prescription Benefit Specialist Pre Chemo Patient identified by name and date of . YES Confirmed date and time for chemotherapy ? YES Other appointments (labs, imaging) discussed? YES Discussed where to park (fur trimmer), charge for parking NO Discussed where to [...] intervesicular mitomycin in the past Ingrid Ugalde RNParkview Health02-05-2025 History of Present illness Narrative* Ingrid Ugalde RN - 07/26/2024 12:19 PM EST ONCOLOGY PATIENT EDUCATION NOTE TOPIC: Chemotherapy, Medications: [...] was provided/discussed including but not limited to: abdominaldiscomfort, anemia, appetite changes, bowel habit changes, chest [...] patient, which included the importance of reporting anyfever of 100.4F (38.0C) or greater to the healthcare team as noted on the provided wallet card and/or magnet. YES - Cancer Wellness Program Pamphlet. YES - 4th Jorge A Information. YES - Patient services information. YES - My Journey binder given to pt. Time Spent: 30 minutes REFERRAL (RECOMMENDATION): N/A Ingrid Ugalde RN Prescription Benefit Specialist Pre Chemo Patient identified by name and date of . YES Confirmed date and time for chemotherapy ? YES Other appointments (labs, imaging) discussed? YES Discussed where to park (fur trimmer), charge for parking NO Discussed where to [...] past Ingrid Ugalde RN documented in this encounterUniversity Hospitals Parma [facility] Center01-29-2025 Instructions* Patient Instructions* Norberto Andrade MD - 07/19/2024 11:04 AM EST Chemo teach for intravesical BCG Start treatment in 2 weeks F/u in 2 weeks documented in this encounterUniversity Hospitals Parma Medical Center01-29-2025 History of Present illness Narrative* Norberto Andrade MD - 07/19/2024 11:00 AM EST Images from the original note were not included. PATIENT NAME: Mary Diaz [facility] NO.: [id number] ATTENDING PHYSICIAN: Norberto Andrade MD DATE OF SERVICE: July 19, [address] Lionel Whitney [address] [facility] [address] thank you for referring Mary Diaz for [...] atleast 1 fragment without obvious stromal invasion (dental specialist). 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 Urology recommended induction [...] Final path showed a small focus of borderlinehigh grade papillary urothelial carcinoma in atleast 1 fragment without obvious stromal invasion (dental specialist). 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 - Urology recommended induction BCG x 6 treatments. - We will start him on weekly BCG treatments after 2 weeks from today - Check CBC CMP - All his questions answered in detail - F/u in [address] Lionel Whitney [address] [facility] [address] thank you for allowing me to participate in Mary Diaz care, if there are any questions or concerns please do not hesitate to contact me at the number below. I spent a total of 60 minutes on the date of the service which included preparing to see the patient, aflw-ir-xnre patient care, completing clinical documentation, obtaining and/or reviewing separately obtained history, performing a medically appropriate examination, counseling and educating the pat ient/family/caregiver, ordering medications, tests, or procedures, communicating with other HCPs (not separately reported), independently interpreting results (not separately reported), communicatingresults to the patient/family/caregiver, and care coordination (not separately reported). Norberto Andrade MD. Hematology/Medical Oncology [facility] [place] [phone] CC: documented in this encounterUniversity Hospitals Parma Medical Center01-29-2025 NoteHNO ID: [id number] Author: NORBERTO ANDRADE MD Service: ? Author Type: Physician Type: Progress Notes Filed: 07/19/2024 11:42 Note Text: PATIENT NAME: Mary Diaz [facility] NO.: [id number] ATTENDING PHYSICIAN: Norberto Andrade MD DATE OF SERVICE: July 19, [address] Lionel Whitney [address] [facility] [address] thank you for referring Mary Diaz for [...] atleast 1 fragment without obvious stromal invasion (dental specialist). 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 Urology recommended induction [...] atleast 1 fragment without obvious stromal invasion (dental specialist). 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 - Urology recommended induction BCG x 6 treatments. - We will start him on weekly BCG treatments after 2 weeks from today - Check CBC CMP - All his questions answered in detail - F/u in [address] Lionel Whitney [address] [place] [address] thank you for allowing me to participate in Mary Diaz [facility], if there are any questions or concerns please do not hesitate to contact me at the number below. I spent a total of 60 minutes on the date of the service which included preparing to see the patient, dkro-fa-ytdj patient care, completing clinical documentation, obtaining and/or reviewing separately obtained history, performing a medically appropriate examination, counseling and educating the patient/family/caregiver, ordering medi (more content not included)...[facility]01-27-2025 History of Present illness Narrative* Cady Espinosa MD - 07/17/2024 10:45 AM EST Seen initially April 2024. Blood work and [...] cancer and underwent prostate removal, also has hadskin cancer. Reviewed results of testing. Blood pressure [...] (VOLTAREN) 75 mg, 2 times daily HYDROcodone-acetaminophen ([place]) 5-325 mg tablet 1 tablet, Daily PRN [...] Diagnosis Date Noted Bilateral carotid artery disease ([facility]) 07/17/2024 Chest pressure 07/17/2024 BMI 26.0-26.9,adult 05/08/2024 [...] Scribe Attestation By signing my name below, Mushtaq VieraSandra Heredia LPN attest that this documentation has been prepared under the direction and in the presence of Cady Espinosa MD. documented in this encounterMartins [facility]erry Hospital Work Phone: 1(355) 937-662501-27-2025 Instructions* Patient Instructions* Lillie Garcia LPN - 07/17/2024 10:45 AM [...] Provided instructions on exercise. documented in this encounterMartins Ferry Hospital Work Phone: 1(805) 420-686501-22-2025 Hospital Discharge instructions Patient Education 07/12/2024 10:54:35 [...] cells. Follow these instructions at home: Take suyj-ahe-xmenswy and prescription medicines only as told by your health care provider. If you were prescribed an antibiotic medicine, take it as told by your health care provider. Do notstop using the antibiotic even if you start to feel better. Eat a healthy diet. Some treatments might affect your appetite. Do not use any products that contain nicotine or tobacco. These products include cigarettes, chewing tobacco, and vaping devices, such as e-cigarettes. If you need help quitting, ask your health careprovider. Consider joining a support group. This may help you learn to deal with the stress of having bladdercancer. Tell your cancer care team if you develop side effects. Your team may be able to recommend ways to get relief. Keep all follow-up visits. This is important. Where to find more information [place] Cancer Society (ACS): cancer.org National Cancer [place] (NCI): cancer.gov Contact a health care provider [...] to deal with the stress of having bladdercancer. This information is not intended to replace advice given to you by your health care provider. Make sure you discuss any questions you have with your health care provider. Document Revised: 05/18/2022 Document Reviewed: 05/18/2022 [employer] Patient Education 2023 [employer]. Follow Up Care 05/09/2024 13:40:51 With:DEVONTE NOBLE, Lionel Burgos, URL Address: [facility] [address], [place] [address]- When: Unknown [facility] 01-22-2025 NotePatient Education Oncology Bladder Cancer Bladder cancer is [...] Follow these instructions at home: ??? Take kqwt-chq-wgviqyv and prescription medicines only as told by your health care provider. ??? If you were prescribed an antibiotic medicine, take it as told by your health care provider. Donot stop using the antibiotic even if you [...] Your team may be able to recommend waysto get relief. ??? Keep all follow-up visits. This is important. Where to find more information ??? [place] Cancer Society (ACS): cancer.org ??? National Cancer [place] (NCI): cancer.gov Contact a health care provider [...] physical exam, lab tests, imaging tests, and yoursymptoms. ??? Your health care provider may recommend one or more types of treatment based on the stage of your cancer. ??? Consider joining a support group. This may help you learn to deal with the stress of having bladder cancer. This information is n (more content not included)...[facility] 05-09-2024 Evaluation + Plan noteExtracted from:Title:Urology Progress Note Author:Lionel WHITNEY MD RDate:05/09/24 Impression and Plan Impression: #1. This gentleman seems to have a recurrence of his bladder cancer. 2. History of prostate cancer. Plan: #1. He will get scheduled for a cystoscopy and transurethral resection of bladder tumors under general endotracheal anesthesia. Future Appointments Appointment Date:07/12/2024 10:30:00 AM Scheduled Provider:Lionel WHITNEY MD Location:[facility] Appointment Type:URO Office Visit Appointment Date:10/09/2024 10:15:00 AM Scheduled Provider:Lionel WHTINEY MD Location:[facility] Appointment Type:URO Office Visit Diagnostic Tests Pending * [facility] Fish [facility] Urine Cyto ([facility]) 05/09/24 [facility] 11-19-2024 Hospital Discharge instructions Patient Education 05/09/2024 [...] Up Care 04/13/2024 11:43:40 With:Lionel WHITNEY Address: [address] [place] [address] [place] [address]- Business (1) When: Unknown Comments:Office will call to schedule follow up [facility] 11-19-2024 NoteProgress Note-Physician Patient: MARY DIAZ Age: [...] All Problems HTN (hypertension) / SNOMED CT [id number] / Confirmed Acute gouty arthritis / SNOMED CT [id number] / Confirmed lots of inflammation per pt sometimes has to get steroids History of prostate cancer / SNOMED CT 8702690241 / Confirmed History of kidney stones / SNOMED CT 2804862028 / Confirmed Impotence / SNOMED CT 1796522940 / Confirmed Bladder cancer / SNOMED CT 5334182389 / Confirmed Spondylolisthesis of cervical region / SNOMED CT 253702186 / Confirmed Chronic obstructive pulmonary disease / SNOMED CT 46236231 / Confirmed GERD (gastroesophageal reflux disease) / SNOMED CT 410101874 / Confirmed BMI 23.0-23.9, adult / SNOMED CT 1656363994 / Confirmed Personal history of colonic polyps / SNOMED CT 4081204896 / Confirmed Chronic GERD / SNOMED CT 177137622 / Confirmed Change in bowel habits / SNOMED CT 311871516 / Confirmed Iron deficiency anemia / SNOMED CT 741578657 / Confirmed Personal history of bladder cancer / SNOMED CT 1399083133 / Confirmed Shoulder impingement syndrome / SNOMED CT 224402681 / Confirmed Ecchymosis / SNOMED CT 812461858 / Confirmed left leg from españa to ankle- box with snowblower in it slipped off a cart and banged his leg. Foot pink and dry with immediate capillary refill, 4t pedal and poterior tibial pulses. Umbilical hernia / SNOMED CT 2950069007 / Confirmed Histories Past Medical History: Active HTN (hypertension) ([id number]) Acute gouty arthritis ([id number]) Comments: 08/22/2014 EST 16:07 Jannette Del Rio RN lots of inflammation per pt sometimes has to get steroids Resolved Cancer of prostate ([id number]): Resolved. Comments: 08/22/2014 EST 16:09 Jannette Del Rio RN just had a surgery done radical prostectomy at [facility] Acid reflux ([id number]): Resolved. Family History: Hypertension Father Diabetes mellitus type 2 Father Depression Sister Procedure history: Cystoscopy ([id number]) on 04/27/2023 at 73 Years. TURBT - Transurethral resection of bladder tumor ([id number]) on 01/14/2023 at 72 Years. TURBT - Transurethral resection of bladder tumor ([id number]) on 02/17/2022 at 72 Years. TURBT - Transurethral resection of bladder tumor ([id number]) on 10/29/2021 at 71 Years. Cystourethroscopy with dilation of urethral stricture (850582229) on 10/14/2021 at 71 Years. Repair of umbilical hernia ([id number]) on 06/22/2017 at 67 Years. Comments: 06/22/2017 14:35 Nedra Tavares RN Umbilical hernia repair with mesh ( assisted with robot) Arthroscopy of shoulder (501395343) on 05/20/2017 at 67 Years. Comments: 05/20/2017 19:03 CASS Garcia RN, Zora Rogers LEFT SHOULDER ARTHROSCOPIC, CHONDROPLASTY,DEBRIDEMENT OF PARTIAL ROTATOR CUFF TEAR, REMOVAL RETAINED SUTURE Radical prostatectomy (67442333) in the month of 08/2014 at 64 Years. bilateral fifth partial metatarsal osteotomies and Silver Tailor's bunionectomies on 08/29/2014 at 64 Years. Colonoscopy ([id number]) in the month of 05/2014 at 64 Years. Complete repair of rotator cuff (525484153) in 2010 at 61 Years. Comments: 08/22/2014 16:14 Jannette Del Rio RN right Shoulder reconstruction (291472049) in 1998 at 49 Years. Comments: 08/22/2014 16:15 Jannette Del Rio RN left possibly a screw in there per pt Appendectomy (413090689) in 1964 at 15 Years. Arthroplasty of the ankle (0863643538). Comments: 12/30/2018 14:30 Jayne Elkins 1990 Arthroscopy of knee (745117961). Cervical vertebral fusion (80675969). Social History Social & Psychosocial Habits Alcohol 10/04/2023 Risk Assessment: Low Risk 10/04/2023 Use: Current Substance Abuse 10/04/2023 Risk Assessment: Denies Substance Abuse Tobacco 10/04/2023 Risk Asse (more content not included)...[facility] Comment on above:Result Comment: Electronically Signed By: DEVONTE NOBLE, Lionel Ernandez\Date and Time Signed: 05/09/24 09:50 [id number] NotePatient Education Custom Cystoscopy ??? Voiding after [...] if you have a fever over 100 degrees.[facility] 05-08-2024 NoteNormal sinus rhythm 67 bpm left axis deviation incomplete right bundle branch block poor R wave progression. No comparison EKG.TGOTV82-03-1964 History of Present illness Narrative* Cady Espinosa MD - 05/08/2024 11:15 AM EST Referred by Dr. Alex Monterroso for New Patient Visit (Wzlpjjao-Xatffy-Qmqmaeetskfi) History Of Present Illness: Mary Diaz is [...] (VOLTAREN) 75 mg, 2 times daily HYDROcodone-acetaminophen ([place]) 5-325 mg tablet 1 tablet, Daily PRN [...] if interval problems arise Thank you Dr. Alex Monterroso for allowing me to participate in patient's care, please do not hesitate to call if further questions arise, Sincerely, Cady Espinosa MD [facility] Provider Attestation - Scribe documentation All medical record entries made by the Scribe were at my direction and personally dictated by me. Ihalcides reviewed the chart and agree that the record accurately reflects my personal performance of the history, physical exam, discussion and plan. documented in this encounterMartins Ferry Hospital Work Phone: 1(972) 582-914711-18-2024 Instructions* Patient Instructions* Elal Cruz RN - 05/08/2024 11:15 AM EST [...] Provided instructions on exercise. documented in this encounterMartins Ferry Hospital Work Phone: 1(573) 588-662805-07-2024 Hospital Discharge instructions Patient Education 10/26/2023 11:58:55 [...] Up Care 09/29/2023 09:06:13 With:Lionel DEVONTE Address: [address] [place], [place] [id number] Business (1) When: Unknown Comments:Office will call to schedule follow up [facility]04-15-2024 Hospital Discharge instructions Patient Education 10/04/2023 10:57:15 [...] if anything looks unusual. Men with a ypdcbz-pvua-yhtfnq risk for skin cancer may want to see a rn clinical documentation specialist (wrapper rewinder) for an annual body check. What are the benefits of screening? Cancer screening is done to look for cancer in the very early stages, before it spreads and becomesharder to treat and before you would start to notice symptoms. Finding cancer early improves the chances of successful treatment. It may save your life. Where to find more information [place] Cancer Society: www.cancer.org Centers for Disease Control and Prevention: www.cdc.gov National Cancer [place]: www.cancer.gov Contact a health care provider if: [...] provider. Document Revised: 11/03/2021 Document Reviewed: 05/03/2020 [employer] Patient Education 2022 [employer] Follow Up Care 10/01/2022 10:55:16 With:DEVONTE NOBLE, Lionel Burgos, URL Address: [facility] [address] [place] [address] [phone] When: Unknown Comments:1 yr w/ PSA [facility] [place] 11-07-2023 Hospital Discharge instructions Patient Education 04/27/2023 [...] Address: [facility] [address] [place] [address]- Business (1) When: Unknown Comments:Office will call to schedule follow up [facility]07-18-2023 Hospital Discharge instructions Patient Education 01/05/2023 10:55:52 [...] Address: [facility] [address] [place] [address]- Business (1) When: Unknown Comments:Office will call to schedule follow up [facility]06-15-2023 Evaluation note* Encounter Date Diagnosis Assessment Notes Treatment Notes Treatment Clinical Notes 15 Rajendra, 2023 Lumbar pain (ICD-10 - M54.50) I independently [...] evaluation and treatment as soon as this isdone I will be happy to reevaluate the patient. 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 This was in 2020 he is having a significant amount of neck pain andstiffness I would like a new dynamic x-ray of the neck to ensure there are no problems. 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 Men with a khmqdn-algm-gourdm risk for skin cancer may want to see a rn clinical documentation specialist (wrapper rewinder) for an annual body check. Where to find more information National Cancer [place]: https://www.cancer.gov/about-cancer/screening Centers for Disease Control and Prevention: https://www.cdc.gov/cancer/dcpc/prevention/screening.htm [place] Cancer Society: https://www.cancer.org/latest-news/6-yxusfj-xhwfflrxl-cpvcb-piv-apu.html Contact a health care provider if: You [...] 03/04/2017 Document Revised: 02/24/2019 Document Reviewed: 03/04/2017 [employer] Patient Education 2020 [employer]. Follow Up Care 09/19/2021 11:05:08 With:DEVONTE NOBLE, Lionel Burgos, URL Address: [facility] [address] [place] [address]- When: Unknown [facility] 01-17-2023 Hospital Discharge instructions Patient Education [...] Address: [facility] [address] [place] [address]- [facility] (1) When: Unknown Comments:Office will call to schedule follow up [facility]09-06-2022 Hospital Discharge instructions Patient Education 02/24/2022 11:23:44 [...] if anything looks unusual. Men with a urhuql-jwwq-cfbtjf risk for skin cancer may want to see a rn clinical documentation specialist (wrapper rewinder) for an annual body check. Where to find more information National Cancer [place]: https://www.cancer.gov/about-cancer/screening Centers for Disease Control and Prevention: https://www.cdc.gov/cancer/dcpc/prevention/screening.htm [place] Cancer Society: https://www.cancer.org/latest-news/3-qrjszy-khfhzicmu-ixcxq-dni-cau.html Contact a health care provider if: You [...] 03/04/2017 Document Revised: 02/24/2019 Document Reviewed: 03/04/2017 [employer] Patient Education 2020 [employer]. Follow Up Care 02/05/2022 13:48:40 With:DEVONTE NOBLE, Lionel Burgos, URL Address: [facility] [address] , [place] [phone] When: Unknown [facility] 05-24-2022 Hospital Discharge instructions Patient Education [...] WHITNEY Address: [facility] [address] [place] [address] Business (1) When: Unknown Comments:Keep scheduled appointment [facility]05-17-2022 Hospital Discharge instructions Patient Education 11/04/2021 [...] who: Are older than age 65. Are -Lao. Are obese. Have a family history of [...] cells. Follow these instructions at home: Take ixmv-cgd-tvuphpf and prescription medicines only as told by [...] 06/07/2006 Document Revised: 05/20/2018 Document Reviewed: 02/15/2017 [employer] Patient Education 2020 [employer]. Follow Up Care 10/14/2021 11:26:04 With:DEVONTE NOBLE, Lionel Burgos, URL Address: [facility] [address] , [place] [address]- When: Unknown [facility] Evaluation + Plan note Future Appointments Appointment Date:09/21/2022 09:45:00 AM Scheduled Provider:Lionel WHITNEY MD Location:[facility] [place] Appointment Type:URO Office Visit [facility] Evaluation + Plan note Future Appointments Appointment Date:03/09/2022 09:00:00 AM Scheduled Provider: Location:[facility] [place] Appointment Type:URO Nurse Visit Appointment Date:04/15/2022 09:00:00 AM Scheduled Provider: Location:[facility] [place] Appointment Type:URO Nurse Visit Appointment Date:09/21/2022 09:45:00 AM Scheduled Provider:Lionel WHITNEY MD Location:[facility] [place] Appointment Type:URO Office Visit [facility] Evaluation + Plan note Future Appointments Appointment Date:03/09/2022 09:00:00 AM Scheduled Provider: Location:[facility] [place] Appointment Type:URO Nurse Visit Appointment Date:04/15/2022 09:00:00 AM Scheduled Provider: Location:[facility] [place] Appointment Type:URO Nurse Visit Appointment Date:09/21/2022 09:45:00 AM Scheduled Provider:Lionel WHITNEY MD Location:[facility] [place] Appointment Type:URO Office Visit Diagnostic Tests Pending * [facility] App[facility]ments Appointment Date:04/15/2022 09:00:00 AM Scheduled Provider: Location:[facility] [place] Appointment Type:URO Nurse Visit Appointment Date:09/21/2022 09:45:00 AM Scheduled Provider:Lionel WHITNEY MD Location:[facility] [place] Appointment Type:URO Office Visit [facility] evaluation + Plan note Future Appointments Appointment Date:07/20/2022 10:00:00 AM Scheduled Provider: Location:[facility] [place] Appointment Type:URO Nurse Visit Appointment Date:08/17/2022 10:00:00 AM Scheduled Provider: Location:[facility] Appointment Type:URO Nurse Visit Appointment Date:09/21/2022 09:45:00 AM Scheduled Provider:Lionel WHITNEY MD Location:[facility] Appointment Type:URO Office Visit Diagnostic Tests Pending * UroVysion FISH ([facility]) [facility]22 [facility] App[facility]ments Appointment Date:08/17/2022 10:00:00 AM Scheduled Provider: Location:[facility] Appointment Type:URO Nurse Visit Appointment Date:09/21/2022 09:45:00 AM Scheduled Provider:Lionel WHITNEY MD Location:[facility] Appointment Type:URO Office Visit [facility] Evaluation + Plan note Future Appointments Appointment Date:09/22/2022 02:00:00 PM Scheduled Provider: Location:[facility] Appointment Type:Urology CALL PAT FT Appointment Date:09/29/2022 11:15:00 AM Scheduled Provider: Location:[facility] Appointment Type:Urology FT [facility] evaluation + Plan note Future Appointments Appointment Date:09/22/2022 02:00:00 PM Scheduled Provider: Location:[facility] Appointment Type:Urology CALL PAT FT Appointment Date:09/29/2022 11:15:00 AM Scheduled Provider: Location:[facility] Appointment Type:Urology FT Diagnostic Tests Pending * Urine Cytology ([facility]) 09/21/22 [facility] evaluation + Plan note Future Appointments Appointment Date:10/04/2023 10:15:00 AM Scheduled Provider:Lionel WHITNEY MD Location:[facility] Appointment Type:URO Office Visit Diagnostic Tests Pending * UroVysion Fish and Urine Cyto ([facility]) [facility] App[facility]ments Appointment Date:10/04/2023 10:15:00 AM Scheduled Provider:Lionel WHITNEY MD Location:[facility] Appointment Type:URO Office Visit [facility] [place] Evaluation + Plan note Future Appointments Appointment Date:10/04/2023 10:15:00 AM Scheduled Provider:Lionel WHITNEY MD Location:[facility] Appointment Type:URO Office Visit Diagnostic Tests Pending * UroVysion Fish and Urine Cyto ([facility]) [facility]23 [facility] App[facility]ments Appointment Date:10/20/2023 12:00:00 PM Scheduled Provider: Location:[facility] Appointment Type:Urology CALL PAT FT Appointment Date:10/26/2023 10:00:00 AM Scheduled Provider: Location:[facility] Appointment Type:Urology FT Appointment Date:10/09/2024 10:15:00 AM Scheduled Provider:Lionel WHITNEY MD Location:[facility] Appointment Type:URO Office Visit Diagnostic Tests Pending * PSA Total 10/04/23 [facility] evaluation + Plan note Future Appointments Appointment Date:10/09/2024 10:15:00 AM Scheduled Provider:Lionel WHITNEY MD Location:[facility] Appointment Type:URO Office Visit Diagnostic Tests Pending * UroVysion Fish and Urine Cyto ([facility]) 10[facility]26/23 [facility] App[facility]ments Appointment Date:07/12/2024 10:30:00 AM Scheduled Provider:Lionel WHITNEY MD [facility] App[facility] Type:URO Office Visit Appointment Date:10/09/2024 10:15:00 AM Scheduled Provider:Lionel WHITNEY MD Location[facility] Appointment Type:URO Office Visit [facility] evaluation + Plan note Future Appointments Appointment Date:07/12/2024 10:30:00 AM Scheduled Provider:Lionel WHITNEY MD Location:[facility] [place] Appointment Type:URO Office Visit Appointment Date:10/09/2024 10:15:00 AM Scheduled Provider:Lionel WHITNEY MD Location:[facility] Appointment Type:URO Office Visit Diagnostic Tests Pending * Urine Cytology ([facility]) 05/22/24 [facility] evaluation + Plan note Future Appointments Appointment Date:10/09/2024 10:15:00 AM Scheduled Provider:Lionel WHITNEY MD Location:[facility] Appointment Type:URO Office Visit [facility] Evaluation + Plan note Future Appointments Appointment Date:02/26/2025 08:30:00 AM Scheduled Provider:Lionel WHITNEY MD Location:[facility] Appointment Type:URO Procedure 15 min Diagnostic Tests Pending * UroVysion Fish and Urine Cyto ([facility]) 10/24/24 [facility] Evaluation + Plan note Future Appointments Appointment Date:12/05/2024 10:00:00 AM Scheduled Provider:LAUREN WOODY PA-C Location:[facility] Appointment Type:URO Office Visit Appointment Date:12/12/2024 10:00:00 AM Scheduled Provider:LAUREN WOODY PA-C Location:[facility] Appointment Type:URO Office Visit Appointment Date:02/26/2025 08:30:00 AM Scheduled Provider:Lionel WHITNEY MD Location:[facility] Appointment Type:URO Procedure 15 min [facility] evaluation + Plan note Future Appointments Appointment Date:12/12/2024 10:00:00 AM Scheduled Provider:LAUREN WOODY PA-C Location:[facility] Appointment Type:URO Office Visit Appointment Date:02/26/2025 08:30:00 AM Scheduled Provider:[facility] Procedure 15 min [facility] evaluation + Plan note Future Appointments Appointment Date:02/26/2025 08:30:00 AM Scheduled Provider:Lionel WHITNEY MD Location:[facility] Appointment Type:URO Procedure 15 min [facility] evaluation noteNo assessment information available [facility] Work Phone: Evaluation note* Diagnosis Onset Date Resolution Status Spinal stenosis of cervical region with radiculopathy acuteSpinal stenosis of lumbar region with radiculopathyacute [facility] Work Phone: Evaluation note* Diagnosis Onset Date Resolution Status Spinal stenosis of cervical region with radiculopathy acuteSpinal stenosis of lumbar region with radiculopathyacuteColonization status acuteCOPD (chronic obstructive pulmonary disease)acute [facility] Work Phone: evaluation note* Diagnosis [...] Medication course changed documented in this encounter [facility] Work Phone: Evaluation note* Diagnosis Left carotid bruit Unequal blood pressure in upper extremities documented in this encounter [facility] Work Phone: Evaluation note* Diagnosis Former smoker Personal history of tobacco use, presenting hazards to health Shortness of breath documented in this encounter [facility] Work Phone: Evaluation note* Diagnosis Uncontrolled [...] breath BMI 26.0-26.9,adult documented in this encounter [facility] Work Phone: Evaluation note* Diagnosis Malignant neoplasm of urinary bladder, unspecified site (HCC)- Primary documented in this encounter [facility] note* Diagnosis Malignant neoplasm of urinary bladder, unspecified site (HCC)- Primary documented in this encounter [facility] note* Diagnosis Malignant neoplasm of urinary bladder, unspecified site (HCC)- Primary documented in this encounter [facility] note* Diagnosis Malignant neoplasm of urinary bladder, unspecified site (HCC)- Primary documented in this encounter [facility] note* Diagnosis Malignant neoplasm of urinary bladder, unspecified site (HCC)- Primary documented in this encounter [facility] note* Diagnosis Malignant neoplasm of urinary bladder, unspecified site (HCC)- Primary documented in this encounter [facility] note* Diagnosis High risk medication use- Primary Encounter for long-term (current) use of other medications documented in this encounter [facility] note* Diagnosis Malignant neoplasm of urinary bladder, unspecified site (HCC)- Primary documented in this encounter [facility] note* Diagnosis High risk medication use- Primary Encounter for long-term (current) use of other medications documented in this encounter [facility] note* Diagnosis Malignant neoplasm of urinary bladder, unspecified site (HCC)- Primary documented in this encounter [facility] note* Diagnosis UTI symptoms- Primary Other symptoms involving urinary system documented in this encounter [facility] note* Diagnosis Malignant neoplasm of urinary bladder, unspecified site (HCC)- Primary documented in this encounter [facility] note* Diagnosis Malignant neoplasm of urinary bladder, unspecified site (HCC) documented in this encounter [facility] note* Diagnosis Malignant neoplasm of urinary bladder, unspecified site (HCC)- Primary documented in this encounter [facility] note* Diagnosis Malignant neoplasm of urinary bladder, unspecified site (HCC)- Primary documented in this encounter [facility] note* Diagnosis Malignant neoplasm of urinary bladder, unspecified site (HCC)- Primary documented in this encounter [facility] note* Diagnosis Chest pressure Other chest pain Shortness of breath documented in this encounter [facility] Work Phone: Evaluation note* Diagnosis Acute hip pain, left- Primary Trochanteric bursitis of left hip documented in this encounter [facility] note* Diagnosis Acute hip pain, left- Primary documented in this encounter [facility] note* Diagnosis Trochanteric bursitis of left hip- Primary Acute hip pain, left documented in this encounter [facility] HealthcareEvaluation note* Diagnosis Malignant neoplasm of urinary bladder, unspecified site (HCC)- [facility] Trochanteric bursitis of left hip- Primary Acute hip pain, left documented in this encounter [facility] HealthcareEvaluation note* Diagnosis Neoplasm of unspecified behavior of bone, soft tissue, and skin- Primary Actinic keratosis documented in this encounter [facility] HealthcareHistory general Narrative - Reported* Type Description Date Medical History HTN Medical HistoryCANCERMedical HistorypneumoniaMedical Historyprostate cancer Surgical History2 LEFT ANKLE RECONSTRUCTIONSurgical HistoryProcedure:Lt shoulder ORIF-screw;Disease:Lt shoulder [id number] HistoryLEFT ROTATOR CUFF Surgical HistoryProcedure:Appendectomy;Disease:1964Surgical History Procedure:Arthroscopy Knee;Disease:2000Surgical HistoryRIGHT SHOULDERSurgical HistoryLEFT SHOULDERSurgical HistoryProcedure:Arthroscopy Ankle;Disease:Surgical HistoryHERNIASurgical HistoryProcedure:right shoulder arthroscopy, debridement , acromioplasty,mini open supraspinatus tendontear;Disease:Surgical History Bilateral tailors bunion [id number] HistoryPROSTECTOMYSurgical History APPENDECTOMYSurgical HistoryRight toe 4 shortened-partial excision of [id number] Surgical HistoryprostatectomySurgical HistoryRIGHT KNEE SCOPESurgical HistoryL shoulder NAE -sbs [id number] HistoryFLU X2-3 DAYS Hospitalization Historysee surg. hx. [employer] Other Hospital course Narrative No data available for this section [facility] Hospital Discharge instructions No data available for this section [facility] progress note No data available for this section [facility] Reason for visit Narrative* Imaging (Routine) - AuthorizedSpecialtyDiagnoses / ProceduresReferred By ContactReferred To ContactCardiology Diagnoses Left carotid bruit Unequal blood pressure in upper extremities Procedures Vascular US Carotid Artery Duplex Bilateral Cady Espinosa MD [address] [place] [address] Phone: tel: fax: Referral IDStatusReasonStart DateExpiration DateVisits RequestedVisits [id number] Perform Procedure [facility] Work Phone: reason for visit Narrative* CV Imaging (Routine) - AuthorizedSpecialtyDiagnoses / ProceduresReferred By ContactReferred To ContactCardiology Diagnoses Former smoker Shortness of breath Procedures Transthoracic Echo Complete [place] ECHO TTHRC R-T 2D W/WOM-MODE COMPL SPEC&COLR D Cady Espinosa MD [address] [address] Phone: tel: fax: Referral IDStatusReasonStart DateExpiration DateVisits RequestedVisits [id number] Perform Procedure [facility] Work Phone: reason for visit Narrative* [place] Prior Authorization (Routine) - AuthorizedSpecialtyDiagnoses / ProceduresReferred By Contact Referred To Contact Diagnoses Malignant neoplasm of urinary bladder, unspecified site (HCC) Procedures BCG LIVE INTRAVESICAL INSTILLATION, 1 MG Norberto Andrade MD [address] [place] [address] [place] [address] Phone: tel: fax: Hematology/Oncology [address] [place] [address] [place] [address] Phone: tel: fax: Referral IDStatusReasonStart DateExpiration DateVisits RequestedVisits [id number]/5/202512/31/2025199 [facility] for visit Narrative* Cardiac Stress Testing (Routine) - AuthorizedSpecialtyDiagnoses / ProceduresReferred By ContactReferred To ContactCardiology Diagnoses Chest pressure Shortness of breath Procedures Nuclear Stress Test CHG MYOCARDIAL SPECT MULTIPLE STUDIES Cady Espinosa MD [address] [address] Phone: tel: fax: Referral IDStatusReasonStart DateExpiration DateVisits RequestedVisits [id number] Perform Procedure [facility] Work Phone: Reason for visit Narrative* Cardiac Stress Testing (Routine) - AuthorizedSpecialtyDiagnoses / ProceduresReferred By Contact Referred To ContactCardiology Diagnoses Chest pressure Shortness of breath Procedures Nuclear Stress Test CHG MYOCARDIAL SPECT MULTIPLE STUDIES Cady Espinosa MD [address] [address] Phone: tel: fax: Referral IDStatusReasonStart DateExpiration DateVisits RequestedVisits [id number] Perform Procedure [facility] Work Phone: Chief Complaint and Reason [...] and back pa in M48.02 M54.12 M48.061 M54.16Reason for VisitSpinal stenosis of cervical region with radiculopathy Spinal stenosis of lumbar region with radiculopathy Chief Complaint f/u neck and back pa in M48.02 M54.12 M48.061 M54.16 M48.[address] Khan for VisitSpinal stenosis of cervical region with radiculopathy Spinal stenosis of lumbar region with radiculopathy Colonization status COPD (chronic obstructive pulmonary disease) Chief Complaint mri results from 08/27 Chief Complaint Admit Date Unknown July 06, 2024 2 :25pm Family History No Family History Records Found Relationship Condition Age at Onset Recorded Date/T ashlyn father Diabetes mellitus Unknown HypertensionUnknownNot SpecifiedDeceasedUnknownsisterCalculus of kidneyUnknown Relationship Condition Age at Onset Recorded Date/T ashlyn father Diabetes mellitus Unknown HypertensionUnknownNot SpecifiedDeceasedUnknownsisterCalculus of kidneyUnknown fatherHypertensionUnknownDiabetes mellitusUnknowngrandparentDeceasedUnknown Relationship Condition Age at Onset Recorded Date/T ashlyn father Diabetes mellitus Unknown HypertensionUnknownmotherDeceasedUnknownDiabetes mellitusUnknownsisterCalculus of kidneyUnknowngrandparentDeceasedUnknown Advance Directives No Advanced Directives Records Found Advance Directive Response Recorded Date/ Time Advance Directives No July 2:58pm Advance Directive Response Recorded Date/ Time Advance Directives No July 1:58pm Reason for Referral Reason evaluate and treat f or neck and back pain Diagnosis 1 Cervical spondylosis (M47.812) [facility] Referring Provider First Name Zoran Referring Provider Last Name Scott Referring Provider Specialty Neurologica l Surgery Referred Organization [facility] Referred Address [address] [place], [place],[address] Referred Provider Specialty Physical The rapist Referral Priority Routine Reason evaluate and tr eat for neck and back pain Diagnosis 1 Cervical spondylosis (M47.812) Diagnosis 2 Low back pain, unspe cified (M54.50) Referral Organization [facility] Referring Provider First Name Zoran Referring Provider Last Name Scott Referring Provider Specialty Neurologica l Surgery Referred Organization [facility] Referred Provider Raoul Soriano Referred Address [address] [place], [place],[address] Referred Provider Specialty Pain Medicin e Referral Priority Routine General Notes Fore, Meron M 023 08:08:21 AM >Received today and waiting for office notes to be locked before sending referral Summary Purpose Additional Source Comments Care Teams (unrecognized sec tion and content) Team Status: Inactive Member Role Status Dates Deandre Monterroso MD Primary Care Provider Active Apolonia Cloe ProviderActive Team Status: Active Member Role Status Shawn Monterroso MD Primary Care Provider Active Team Status: Inactive Member Role Status Shawn Monterroso MD Primary Care Provider Active Apolonia Hinojosa ProviderActive Team Status: Inactive Member Role Status Shawn Monterroso MD Primary Care Provider Active Start: August 12, 2023 End: August 12, 2023Esther Lowery FURNACE OPERATOR OIL OR GAS-CAttending ProviderActiveStart: August 12, 2023 End: August 12, 2023 Team Status: Active Member Role Status Shawn Monterroso MD Primary Care Provider Active Start: August 12, 2023 Esther Lowery FURNACE OPERATOR OIL OR GAS-CAttending ProviderActiveStart: August 12, 2023 Team Status: Inactive Member Role Status Shawn Monterroso MD Primary Care Provider Active Start: August 28, 2023 End: August 28, 2023Esther Lowery FURNACE OPERATOR OIL OR GAS-CAttending ProviderActiveStart: August 28, 2023 End: August 28, 2023 Team Status: Inactive Member Role Status Shawn Monterroso MD Primary Care Provider Active Start: October 11, 2023 End: October 11, 2023MicApolonia Lynne ProviderActiveStart: October 11, 2023 End: October 11, 2023 Team Status: Inactive Member Role Status Shawn Monterroso MD Primary Care Provider Active Start: March 28, 2024 End: March 28Apolonia Power ProviderActiveStart: March 28, 2024 End: March 28, 2024Team MemberRelationshipSpecialtyStart DateEnd Date Deandre Monterroso MD [address] [place] [address] PCP - GeneralFamily Cjajhrub21/18/24Team MemberRelationshipSpecialtyStart Date End Date Deandre Monterroso MD [address] [place] [address] PCP - GeneralFamily Jzmzakko22/18/24 Team Status: Inactive Member Role Status Dates Deandre Monterroso MD Primary Care Provider Active Start: July 06, 2024 End: July 06, 2024PatricApolonia Payne ProviderActiveStart: July 06, 2024 End: July 06, 2024Team MemberRelationshipSpecialtyStart DateEnd Date Deandre Monterroso MD [address] [place] [address] [facility] Qxpgqsnu82/18/24Team MemberRelationshipSpecialtyStart Date End Date Lionel Whitney MD [address] [place] [address] Urolog07/18/24Team MemberRelationshipSpecialtyStart DateEnd Date Lionel Whitney MD [address] [place] [address] Urolog07/18/24Team MemberRelationshipSpecialtyStart DateEnd Date Deandre Monterroso MD [address] [place] [address] PCP - GeneralFami Medicine07/26/24 Lionel Whitney MD [address] [place] [address] Urolog07/18/24Team MemberRelationshipSpecialtyStart DateEnd Date Deandre Monterroso MD [address] [place] [address] PCP - GeneralFami Medicine07/26/24 Lionel Whitney MD [address] [place] [address] Urolog07/18/24Team MemberRelationshipSpecialtyStart DateEnd Date Deandre Monterroso MD [address] [facility] [place] [address] PCP - GeneralFamily Medicine07/26/24 Lionel Whitney MD [address] [place] [address] Urolog07/18/24Team MemberRelationshipSpecialtyStart DateEnd Date Deandre Monterroso MD [address] [facility] [place] [address] PCP - Generalmily Medicine07/26/24 Lionel Whitney MD [address] [place] [address] Urolog07/18/24Team MemberRelationshipSpecialtyStart DateEnd Date Deandre Monterroso MD [address] [facility] [place] [address] PCP - Generalmily Medicine07/26/24 Lionel Whitney MD [address] [place] [address] Urolog07/18/24Team MemberRelationshipSpecialtyStart DateEnd Date Deandre Monterroso MD [address] [place] [address] PCP - GeneralFamily Medicine07/26/24 Lionel Whitney MD [address] [place] [address] Urolog07/18/24 Ingrid Ugalde, RN [address] [place] [address] Specialty Care CoordinatorHematology/Oncology08/07/24 Norberto Andrade MD [address] [place] [address] PhysicianHematology/Oncology08/07/24Team MemberRelationshipSpecialtyStart DateEnd Date Deandre Monterroso MD [address] [place] [address] PCP - [facility] Medicine07/26/24 Lionel Whitney MD [address] [place], [facility] Urolog07/18/24 Ingrid Ugalde RN [address] [place] [address] Specialty Care CoordinatorHematology/Oncology08/07/24 Norberto Andrade MD [address] [facility] [address] [place] [address] PhysicianHematology/Oncology08/07/24Team MemberRelationshipSpecialtyStart DateEnd Date Deandre Monterroso MD [address] [place] [address] PCP - [facility] Medicine07/26/24 Lionel Whitney MD [address] [place] [address] Urolog07/18/24 Ingrid Ugalde RN [address] [place] [address] Specialty Care CoordinatorHematology/Oncology08/07/24 Norberto Andrade MD [address] [place] [address] PhysicianHematology/Oncology08/07/24Te MemberRelationshipSpecialtyStart DateEnd Replaced By [facility] Deandre Monterroso MD [address] [facility] [place] [address] PCP - [facility] Medicine07/26/24 Lionel Whitney MD [address] [place], [facility] Urolog07/18/24 Ingrid Ugalde RN [address] [place] [address] Specialty Care CoordinatorHematology/Oncology08/07/24 Norberto Andrade MD [address] [place] [address] PhysicianHematology/Oncology08/07/24Te MemberRelationshipSpecialtyStart DateEnd Replaced By [facility] Deandre Monterroso MD [address] [facility] [place] [address] [facility]07/26/24 Lionel Whitney MD [address] [place] [address] Urolog07/18/24 Ingrid Ugalde RN [address] [place] [address] Specialty Care CoordinatorHematology/Oncology08/07/24 Norberto Andrade MD [address] [facility] [place] [address] PhysicianHematology/Oncology08/07/24Team MemberRelationshipSpecialtyStmilnesand End Replaced By [facility] Deandre Monterroso MD [facility] [place] [id number] PCP - GeneralFamily Medicine07/26/24 Lionel Whitney MD [address] [place] [address] Urolog07/18/24 Ingrid Ugalde RN [address] [facility] [address] [place], [facility] Specialty Care CoordinatorHematology/Oncology08/07/24 Norberto Andrade MD [address] [facility] [address] [place], [facility] PhysicianHematology/Oncology08/07/24Team MemberRelationshipSpecialtyStmilnesand DateEnd Deandre Monterroso MD [facility] [place] [id number] PCP - GeneralFamily Medicine07/26/24 Lionel Whitney MD [address] [place] [address] Urolog07/18/24 Ingrid Ugalde RN [address] [facility] [place] [address] Specialty Care CoordinatorHematology/Oncology08/07/24 Norberto Andrade MD [address] [place] [address] PhysicianHematology/Oncology08/07/24Team MemberRelationshipSpecialtyStart End Deandre Monterroso MD [address] [place] [address] PCP - GeneralFamily Medicine07/26/24 Lionel Whitney MD [address] [place] [address] Urolog07/18/24 Ingrid Ugalde RN [address] [place] [address] Specialty Care CoordinatorHematology/Oncology08/07/24 Norberto Andrade MD [address] [facility] [place] [address] PhysicianHematology/Oncology08/07/24Te MemberRelationshipSpecialtyStart DateEnd Deandre Monterroso MD [address] [place] [address] PCP - GeneralFamily Medicine07/26/24 Lionel Whitney MD [address] [place] [address] Urolog07/18/24 Ingrid Ugalde, NATHALIE [address] [place] [address] Specialty Care CoordinatorHematology/Oncology08/07/24 Norberto Andrade MD [address] [place] [address] PhysicianHematology/Oncology08/07/24Te MemberRelationshipSpecialtyStart DateEnd Replaced By [facility] Deandre Monterroso MD [address] [place] [address] PCP - [facility] Medicine07/26/24 Lionel [place] MD [address] [place] [id number] Urolog07/18/24 Ingrid Ugalde RN [address] [place] [address] Specialty Care CoordinatorHematology/Oncology08/07/24 Norberto Andrade MD [address] [facility] [place] [address] PhysicianHematology/Oncology08/07/24Te MemberRelationshipSpecialtyStart DateEnd Replaced By [facility] Deandre Monterroso MD [address] [place] [address] PCP - [facility] Medicine07/26/24 Lionel Whitney MD [address] [place] [address] Urolog07/18/24 Ingrid Ugalde RN [address] [place] [address] Specialty Care CoordinatorHematology/Oncology08/07/24 Norberto Andrade MD [address] [place] [address] PhysicianHematology/Oncology08/07/24Te MemberRelationshipSpecialtyStart DateEnd Replaced By [facility] Deandre Monterroso MD [address] [facility] [place] [address] PCP - GeneralFamily Kcaksevm57/18/24Te MemberRelationshipSpecialtyStart Date End Date Deandre Monterroso MD [address] [facility] [place] [address] PCP - GeneralFamily Bdlxsefp05/18/24Team MemberRelationshipSpecialtyStart Date End Date Deandre Monterroso MD [address] [place] [address] PCP - Generalmily Medicine01/07/23Team MemberRelationshipSpecialtyStart DateEnd Date Deandre Monterroso MD [address] [place] [address] PCP - GeneralFamily Medicine01/07/23Team MemberRelationshipSpecialtyStart DateEnd Date Deandre Monterroso MD [address] [place] [address] PCP - GeneralFamily Medicine07/26/24 Lionel [place] MD Urolog07/18/24 Ingrid Ugalde RN [address] [place] [address] [address] [place] Specialty Care CoordinatorHematology/Oncology08/07/24 Norberto Andrade MD [address] [place] [address] [place], [facility] PhysicianHematology/Oncology08/07/24Team MemberRelationshipSpecialtyStart DateEnd Date Deandre Monterroso MD PCP - Generalmily Medicine01/07/23Team MemberRelationshipSpecialtyStart DateEnd Date Deandre Monterroso MD PCP - GeneralFamily Medicine01/07/23Team MemberRelationshipSpecialtyStart DateEnd Date Deandre Monterroso MD PCP - Generalmily Medicine01/07/23Team MemberRelationshipSpecialtyStart DateEnd Date Deandre Monterroso MD PCP - Generalmily Medicine01/07/23Team MemberRelationshipSpecialtyStart DateEnd Date Deandre Monterroso MD [address] [place] [address] PCP - Generalmily Medicine07/26/24 Lionel [place] MD Urolog07/18/24 Ingrid Ugalde RN [address] [facility] [address] [place] [id number] Specialty Care CoordinatorHematology/Oncology08/07/24 Norberto Andrade MD [address] [facility] [place] [address] PhysicianHematology/Oncology08/07/24Team MemberRelationshipSpecialtyStart DateEnd Daendre Monterroso MD [address] [place] [address] PCP - GeneralFamily Medicine01/10/25Team MemberRelationshipSpecialtyStart DateEnd Date Deandre Monterroso MD [address] [facility] [place] [address] [facility] - [facility]25Team MemberRelationshipSpecialtyStart DateEnd Date Deandre Monterroso MD [address] [facility] [place] [address] [facility] - [facility]01/10/25Team MemberRelationshipSpecialtyStart DateEnd Date Deandre Monterroso MD [address] [facility] [place] [address] PCP - [facility]01/10/25 Goals (unrecognized section and content) Goals may [...] FOR VISIT (unrecogniz ed section and content) ReasonCommentsNew Patient NwiegDqlokitu-Fzavef-NxqwwysaiqcgVnjhrteleJvitrplbn / ProceduresReferred By ContactReferred To Contact Diagnoses Uncontrolled hypertension Shortness of breath Procedures ECG 12 Lead Cady Espinosa MD [address] [place] [address] Phone: tel: fax: Referral IDStatusReasonStart DateExpiration DateVisits RequestedVisits [id number]/18/202411/[id number] SpecialtyDiagnoses / ProceduresReferred By ContactReferred To ContactCardiology Diagnoses Uncontrolled hypertension Procedures Follow Up In Cardiology Cady Espinosa MD [address] [place] [address] Phone: tel: fax: Cady Espinosa MD [address] [place] [address] Phone: tel: fax: Referral IDStatusReasonStart DateExpiration DateVisits RequestedVisits [id number]/18/202411/18/238742GbhulmSvaepclzHuzmtpl Cancer ConsultReasonCommentsFirst Time Treatment EducationReasonCommentsBenefits InvestigationGood ,I am your Financial Navigator, Esther. I wanted to reach out and introduce myself. I welcome the opportunity to meet with you as I can answer questions related to your health plan andany expected out of pocket costs while you are in treatment.You will also find a survey attached [employer] message that can help me better serve your financial needs. You can complete this at your earliest convenience. Please feel free to stop in or call [phone] for any questions you may have.ReasonCommentsBladder CancerReason CommentsCare [id number] treatment follow up callReasonCommentsFollow Up ReasonCommentsRadiology CTSpecialtyDiagnoses / ProceduresReferred By Contact Referred To ContactCT IMAGING Diagnoses Malignant neoplasm of urinary bladder, unspecified site (HCC) Procedures CT CHEST W IVCON DIAGNOSTIC COMPUTED TOMOGRAPHY THORAX W/CONTRAST Norberto Andrade MD [address] [place] [address] [place] [address] Phone: tel: fax: [place] [address] Referral IDStatusReasonStart DateExpiration DateVisits RequestedVisits [id number] Auto-Generated Referral [id number] CancerTreatment visitReasonComments PainReasonCommentsPainReasonCommentsFollow-up (unrecognized sect ion and content) No Status Records FoundNo Status Records FoundNo Status Records FoundNo Status Records FoundNo Status Records FoundNo Status Records FoundNo Status Records FoundNo Status Records FoundNo Status Records FoundNo Status Records FoundNo Status Records FoundNo Status Records FoundNo Status Records Found INFORMATION SOURCE (unrecogn ized section and content) DATE CREATED AUTHOR 11/27/2022 [facility] DATE CREATED AUTHOR AUTHOR'S ORGANIZ ATION 05/23/2024 [facility] DATE CREATED AUTHOR AUTHOR'S ORGANIZ ATION 07/12/2024 [facility] DATE CREATED AUTHOR AUTHOR'S ORGANIZ ATION 09/26/2024 [facility] DATE CREATED AUTHOR AUTHOR'S ORGANIZ ATION 12/12/2024 [facility] DATE CREATED AUTHOR AUTHOR'S ORGANIZ ATION 12/14/2024 [facility] DATE CREATED AUTHOR AUTHOR'S ORGANIZ ATION 01/07/2025 [facility] DATE CREATED AUTHOR AUTHOR'S ORGANIZ ATION 02/11/2025 [facility] DATE CREATED AUTHOR AUTHOR'S ORGANIZ ATION 02/27/2025 [facility] DATE CREATED AUTHOR AUTHOR'S ORGANIZ ATION 03/01/2025 [facility] DATE CREATED AUTHOR AUTHOR'S ORGANIZ ATION 03/05/2025 [facility] DATE CREATED AUTHOR AUTHOR'S ORGANIZ ATION 03/14/2025 [facility] Source Comments (unrecognize d section and content) In the event this informatio n is protected by the Federal Confidentiality of Alcohol and Drug Abuse Patient Records regulations: The Federal rules restrict any use of the information to criminally investigate or prosecute any alcohol or drug abuse patient.[facility] CenterIn the event this information is protected by the Federal Confidentiality of Alcohol and Drug Abuse Patient Records regulations: The Federal rules restrict any use of the information to criminally investigate or prosecute any alcohol or drug abuse patient.[facility] CenterIn the event this information is protected by the Federal Confidentiality of Alcohol and Drug Abuse Patient Records regulations: The Federal rules restrict any use of the information to criminally investigate or prosecute any alcohol or drug abuse patient.[facility] CenterIn the event this information is protected by the Federal Confidentiality of Alcohol and Drug Abuse Patient Records regulations: The Federal rules restrict any use of the information to criminally investigate or prosecute any alcohol or drug abuse patient.[facility] CenterIn the event this information is protected by the Federal Confidentiality of Alcohol and Drug Abuse Patient Records regulations: The Federal rules restrict any use of the information to criminally investigate or prosecute any alcohol or drug abuse patient.[facility] CenterIn the event this information is protected by the Federal Confidentiality of Alcohol and Drug Abuse Patient Records regulations: The Federal rules restrict any use of the information to criminally investigate or prosecute any alcohol or drug abuse patient.[facility] CenterIn the event this information is protected by the Federal Confidentiality of Alcohol and Drug Abuse Patient Records regulations: The Federal rules restrict any use of the information to criminally investigate or prosecute any alcohol or drug abuse patient.[facility] CenterIn the event this information is protected by the Federal Confidentiality of Alcohol and Drug Abuse Patient Records regulations: The Federal rules restrict any use of the information to criminally investigate or prosecute any alcohol or drug abuse patient.[facility] CenterIn the event this information is protected by the Federal Confidentiality of Alcohol and Drug Abuse Patient Records regulations: The Federal rules restrict any use of the information to criminally investigate or prosecute any alcohol or drug abuse patient.[facility] CenterIn the event this information is protected by the Federal Confidentiality of Alcohol and Drug Abuse Patient Records regulations: The Federal rules restrict any use of the information to criminally investigate or prosecute any alcohol or drug abuse patient.[facility] CenterIn the event this information is protected by the Federal Confidentiality of Alcohol and Drug Abuse Patient Records regulations: The Federal rules restrict any use of the information to criminally investigate or prosecute any alcohol or drug abuse patient.[facility] CenterIn the event this information is protected by the Federal Confidentiality of Alcohol and Drug Abuse Patient Records regulations: The Federal rules restrict any use of the information to criminally investigate or prosecute any alcohol or drug abuse patient.[facility] CenterIn the event this information is protected by the Federal Confidentiality of Alcohol and Drug Abuse Patient Records regulations: The Federal rules restrict any use of the information to criminally investigate or prosecute any alcohol or drug abuse patient.[facility] CenterIn the event this information is protected by the Federal Confidentiality of Alcohol and Drug Abuse Patient Records regulations: The Federal rules restrict any use of the information to criminally investigate or prosecute any alcohol or drug abuse patient.[facility] CenterIn the event this information is protected by the Federal Confidentiality of Alcohol and Drug Abuse Patient Records regulations: The Federal rules restrict any use of the information to criminally investigate or prosecute any alcohol or drug abuse patient.[facility] CenterIn the event this information is protected by the Federal Confidentiality of Alcohol and Drug Abuse Patient Records regulations: The Federal rules restrict any use of the information to criminally investigate or prosecute any alcohol or drug abuse patient.[facility] CenterIn the event this information is protected by the Federal Confidentiality of Alcohol and Drug Abuse Patient Records regulations: The Federal rules restrict any use of the information to criminally investigate or prosecute any alcohol or drug abuse patient.[facility] CenterIn the event this information is protected by the Federal Confidentiality of Alcohol and Drug Abuse Patient Records regulations: The Federal rules restrict any use of the information to criminally investigate or prosecute any alcohol or drug abuse patient.[facility] CenterIn the event this information is protected by the Federal Confidentiality of Alcohol and Drug Abuse Patient Records regulations: The Federal rules restrict any use of the information to criminally investigate or prosecute any alcohol or drug abuse patient.[facility] CenterIn the event this information is protected by the Federal Confidentiality of Alcohol and Drug Abuse Patient Records regulations: The Federal rules restrict any use of the information to criminally investigate or prosecute any alcohol or drug abuse patient.[facility] CenterIn the event this information is protected by the Federal Confidentiality of Alcohol and Drug Abuse Patient Records regulations: The Federal rules restrict any use of the information to criminally investigate or prosecute any alcohol or drug abuse patient.[facility] CenterIn the event this information is protected by the Federal Confidentiality of Alcohol and Drug Abuse Patient Records regulations: The Federal rules restrict any use of the information to criminally investigate or prosecute any alcohol or drug abuse patient.[facility] CenterIn the event this information is protected by the Federal Confidentiality of Alcohol and Drug Abuse Patient Records regulations: The Federal rules restrict any use of the information to criminally investigate or prosecute any alcohol or drug abuse patient.[facility] CenterIn the event this information is protected by the Federal Confidentiality of Alcohol and Drug Abuse Patient Records regulations: The Federal rules restrict any use of the information to criminally investigate or prosecute any alcohol or drug abuse patient.[facility] CenterIn the event this information is protected by the Federal Confidentiality of Alcohol and Drug Abuse Patient Records regulations: The Federal rules restrict any use of the information to criminally investigate or prosecute any alcohol or drug abuse patient.[facility] FOR RECORDS PERTAINING TO PATIENTS [...] BE BASED ON THE PRIMARY CLINICAL RECORDS. [facility] [employer] [facility]. provides no warranty or guarantee of the accuracy or completeness of information in this document.
--- NOTE | 2025-05-10 09:42 | PM.CN ---
Consult Note: HPI Data of Consult Patient: known to practice within the last 3 years Consult date: 05/10/25 Requesting Physician: Erin Shelton NP Primary Care Provider: Deandre Staley MD Consult Narrative Reason for consult: low back and RLE pain Narrative: Ryder Durant a 75 year old male with chronic low back and leg pain presents for evaluation. pt has failed to benefit from > 6 weeks of PT and HEP program, caregiver services home, heat, ice, tylenol, nsaids. minimal relief with interventional therapy through orthopedics per pt. no recent falls of injury. prior lumbar MRI consistent with multilevel stenosis and facet arthropathy. Pain today 4/10 stabbing burning increasing to 10/10 in low back and right leg. notes increased pain with standing, walking, pushing, pulling, stairs, ADLs, and activity. utilizing robaxin, tylenol, diclofenac, and norco prn with benefit without side effects. pt considering scs trial in the future. cc:: CC: Erin Shelton NP Review of Systems ROS Musculoskeletal Reports: back pain and extremity pain PFSH PFSH Medical History Bladder tumor ?D49.4 - Neoplasm of unspecified behavior of bladder (ICD-10) Carotid bruit ?R09.89 - Other specified symptoms and signs involving the circulatory and respiratory systems (ICD-10) Hip pain ?M25.559 - Pain in unspecified hip (ICD-10) High cholesterol ?E78.00 - Pure hypercholesterolemia, unspecified (ICD-10) Hypothyroidism ?E03.9 - Hypothyroidism, unspecified (ICD-10) COPD (chronic obstructive pulmonary disease) ?J44.9 - Chronic obstructive pulmonary disease, unspecified (ICD-10) Arthritis ?M19.90 - Unspecified osteoarthritis, unspecified site (ICD-10) Anemia ?D64.9 - Anemia, unspecified (ICD-10) Bladder cancer ?C67.9 - Malignant neoplasm of bladder, unspecified (ICD-10) 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 - Other specified disorders of bladder (ICD-10) Neck pain ?M54.2 - Cervicalgia (ICD-10) Low back pain ?M54.50 - Low back pain, unspecified (ICD-10) Osteoarthritis ?M19.90 - Unspecified osteoarthritis, unspecified site (ICD-10) Acid reflux ?K21.9 - Gastro-esophageal reflux disease without esophagitis (ICD-10) Hearing deficit ?H91.90 - Unspecified hearing loss, unspecified ear (ICD-10) Prostate cancer ?C61 - Malignant neoplasm of prostate (ICD-10) Former smoker ?Z87.891 - Personal history of nicotine dependence (ICD-10) Hypertension ?I10 - Essential (primary) hypertension (ICD-10) Surgical History H/O cystoscopy ?Z98.890 - Other specified postprocedural states (ICD-10) S/P epidural steroid injection ?Z92.241 - Personal history of systemic steroid therapy (ICD-10) H/O transurethral resection of bladder tumor (TURBT) ?Z98.890 - Other specified postprocedural states (ICD-10) ?Z86.03 - Personal history of neoplasm of uncertain behavior (ICD-10) History of colonoscopy ?Z98.890 - Other specified postprocedural states (ICD-10) History of arthroscopy of knee ?Z98.890 - Other specified postprocedural states (ICD-10) History of foot surgery ?Z98.890 - Other specified postprocedural states (ICD-10) History of appendectomy ?Z90.49 - Acquired absence of other specified parts of digestive tract (ICD-10) History of hernia repair ?Z98.890 - Other specified postprocedural states (ICD-10) ?Z87.19 - Personal history of other diseases of the digestive system (ICD-10) S/P cystoscopy ?Z98.890 - Other specified postprocedural states (ICD-10) H/O transurethral resection of bladder tumor (TURBT) (01/14/23) ?Z98.890 - Other specified postprocedural states (ICD-10) ?Z86.03 - Personal history of neoplasm of uncertain behavior (ICD-10) H/O transurethral resection of bladder tumor (TURBT) ?Z98.890 - Other specified postprocedural states (ICD-10) ?Z86.03 - Personal history of neoplasm of uncertain behavior (ICD-10) S/P cervical spinal fusion ?Z98.1 - Arthrodesis status (ICD-10) H/O prostatectomy ?Z90.79 - Acquired absence of other genital organ(s) (ICD-10) History of ankle surgery ?Z98.890 - Other specified postprocedural states (ICD-10) H/O shoulder surgery ?Z98.890 - Other specified postprocedural states (ICD-10) Family History Other Depression Family history of diabetes mellitus Family history of hypertension Social History Within the past year, how often did you have a drink containing alcohol: 2-4 times a month Smoking status: Former smoker Non-prescribed substance use: denies use Previous occupational history: retired Highest level of school completed/degree received: Associate degree: occupational, technical, vocational program Meds Home Medications and Allergies Home Medications ?Medication ?Instructions ?Recorded ?Confirmed ?Type fluticasone fur. 100 mcg-umeclid 1 inh inhalation DAILY 11/20/22 02/05/25 History 62.5 mcg-vilant 25 mcg inhalat.powder (Trelegy Ellipta) pantoprazole 40 mg tablet,delayed 40 mg PO DAILY 11/20/22 08/07/24 History release liothyronine 25 mcg tablet 25 mcg PO DAILY 06/27/24 02/05/25 History lisinopril 20 mg tablet 20 mg PO DAILY 06/27/24 02/05/25 History lisinopril 20 1 tab PO DAILY 06/27/24 02/05/25 History mg-hydrochlorothiazide 12.5 mg tablet rosuvastatin 20 mg tablet 20 mg PO DAILY 06/27/24 02/05/25 History tizanidine 4 mg capsule 4 mg PO BID PRN muscle spasticity 06/27/24 02/05/25 History hydrocodone 5 mg-acetaminophen 325 1 tab PO DAILY PRN pain #30 tabs 09/27/24 02/05/25 Rx mg tablet ferrous sulfate 325 mg (65 mg mg PO 02/05/25 History iron) tablet,delayed release hydrocodone 5 mg-acetaminophen 325 1 tab PO DAILY PRN pain #30 tabs 04/03/25 Rx mg tablet methocarbamol 500 mg tablet See Rx Instructions .Route 05/03/25 Rx .COMPLEX #180 tabs Allergies Allergy/AdvReac Type Severity Reaction Status Date / Time codeine Allergy Unknown Hives Verified 02/05/25 12:36 oxycodone (From Percocet) AdvReac Agitated Verified 02/05/25 12:36 Exam Constitutional Documenting provider has reviewed patient's vital signs: yes Common normals: no apparent distress, oriented x3 and alert General appearance: cooperative HENMT Common normals: normocephalic, hearing grossly normal bilaterally and moist oral mucous membranes Head and scalp: normocephalic Eye Common normals: PERRL Pupil: PERRL Neck & C-Spine Common normals: full ROM General: normal visual inspection Chest Common normals: inspection of chest normal Respiratory Common normals: normal respiratory effort, no retractions and no use of accessory muscles Back & Pelvis Lumbar spine/lower back: ROM limited, pain with ROM and straight leg raise positive right Other: decreased sensation right L4,5,S1 strength 4/5 in RLE and 5/5 in LLE Neuro Common normals: oriented x3 Sensorium/orientation: alert Psych Common normals: mental status grossly normal, thought process normal, cooperative, affect normal, speech normal and activity/motor behavior normal Speech: normal speech Thought process: normal thought process Results Additional Findings Additional findings: If on a controlled substance or opioids, I have checked an [place] report on this patient and there are no aberrancies noted in the prescribing history.??If on a controlled substance or opioid a drug screen was completed and reviewed within the last year, and if there has not been a drug screen completed we ordered one today to monitor higher risk, state monitored pain medication use. As part of providing excellent, safe, comprehensive care, the following was completed at our patient's visit: 1. A medication reconciliation and review to ensure accurate knowledge of current/active medications, including asking our patients to inform us about any janf-psz-dyqmtgj medications or herbal remedies/nutritional supplements/alternative remedies. 2. A review to specifically ensure our patients have had annual screening for screening for depression, screening for tobacco use, and screening for unhealthy alcohol use. For concerning screenings had a discussion with the patient, provided patient education, and recommended follow-up with primary care provider when appropriate. If patient noted with a risk of falling, they received education on strength, gait, and balance training to prevent future risk of falling. Portions of this note may have been carried over from the previous visit and updated as appropriate. Please note this office utilizes paper charting in addition to the electronic medical record. A list of current medications, vitals, and PMH is available there as the clinical staff outside of myself do not have access to [facility] charting during the clinic day operations. As part of providing quality comprehensive care the current medications, vitals, and PMH were reviewed in the paper chart. Assessment and Plan Assessment and Plan (1) Lumbar stenosis with neurogenic claudication: (2) Lumbar radiculopathy: (3) Chronic prescription opiate use: Assessment and Plan: I feel these medications are improving the patient's quality of life and allow them to tolerate activities of daily living as well as participate in recreational activity.? The patient does not report intolerable side effects. The patient is NOT opioid naive and non-pharmacologic and non-opioid treatment has failed to significantly relieve the patient's pain and improve functionality. The patient has a diagnosis that is related to a somatic or visceral pain etiology. ? ?? I reviewed with the patient the potential risks and side effects with the use of? opioid medications including but not limited to respiratory depression,? sedation, and even . Within the last 12 months I have verified the patient has access to naloxone should? these effects occur. The patient was advised to let? their family know they had Naloxone in case they would need to administer? the medication. I advised the patient to avoid the use of any other? sedation substances including alcohol, THC, and benzodiazepines while? taking opioid medications due to the risk of compounding side effects and? detrimental outcomes. within the last 12 months I have reviewed the [employer], pain treatment agreement and urine drug screen.? ?? A drug screen was completed within the last year, and no aberrancies were noted regarding their use of controlled substances. The patient understands they are subject to the terms and conditions of the pain contract that they have signed. ? ?? I have checked an [place]AR[place] report on this patient today and there are no aberrancies noted in the prescribing history.? Plan The patient has had over 3 months of moderate to severe low back and LE pain with functional impairment and inadequate response to conservative care including NSAIDS (unless there are contraindication such as concurrent blood thinners), multiple oral or topical pain medications, and home exercise program/physical therapy.? Patient has completed >6 weeks of guided home exercise program and/or formal physical therapy program without relief of their symptoms.? I have reviewed the imaging of the lumbar spine and no red flags were identified.? The imaging reveals radiographic findings consistent with lumbar stenosis with NC and lumbar radiculopathy The Oswestry Disability Index was completed, and the patient scored a 32%.? right L4,5 L5,S1 TFESI under fluoroscopy for lumbar radiculopathy and lumbar stenosis with NC. prior lumbar TFESIs have provided at least 50% improvement for 3 months maintain current medication regimen, risks vs benefits reviewed update lumbar mri without contrast to assess lumbar stenosis with NC and lumbar radiculopathy in consideration of ns consultation and further interventional therapy patient has no additional questions regarding scs trial at this time, not interested at this time f/u after injection
== END 2025-05-10 09:18 | disposition home or self-care (01) ==
LOC: PM 09:17
PROVIDERS: PCP Family Medicine; Visit Provider Nurse Practitioner
DX: M48.062 Spinal stenosis, lumbar region with neurogenic claudication (principal); M54.16 Radiculopathy, lumbar region; Z79.891 Long term (current) use of opiate analgesic
CPT/HCPCS: G0463

== ENCOUNTER 2025-05-21 08:57 | Day surgery (SDC) | payer MEDICARE, SELFPAY ==
--- OUTSIDE RECORDS SUMMARY | 2025-05-21 09:02 | XMS_ITS | Clinical Summary ---
Author Organization [facility] Address [address] [place] [address] Phone Care Team Providers Care Tax Professional Name Role Phone Deandre Staley MD Primary Care Provider [phone] Allergies Active AllergyReactionsCriticalityNoted YyjhGsetzggfFsoamafOvvdyguzy93/18/2024 Medications MedicationSigDispense QuantityRefillsLast FilledStart DateEnd DateStatus diclofenac (Voltaren) 75 mg EC tablet Take 1 tablet (75 mg) by mouth 2 times a day.09/03/2022ctive Trelegy Ellipta 100-62.5-25 mcg blister with device Inhale 1 puff early in the morning..Active HYDROcodone-acetaminophen ([place]) 5-325 mg tablet Take 1 tablet by mouth once daily as needed for severe pain (7 - 10).08/12/2023 Active methocarbamol (Robaxin) 500 mg tablet Take 1 tablet (500 mg) by mouth once daily as needed for muscle spasms. 04/21/2023ctive pantoprazole (ProtoNix) 40 mg EC tablet Take 1 tablet (40 mg) by mouth once daily in the evening.10/18/2022ctive liothyronine (Cytomel) 25 mcg tablet Take 0.5 tablets (12.5 mcg) by mouth once daily.10/04/2023ctive doxazosin (Cardura) 1 mg tablet Indications:Uncontrolled hypertensionTake 1 tablet (1 mg) by mouth once daily at bedtime. 90 tablet ctive lisinopril 20 mg tablet Indications:Uncontrolled hypertensionTake 1 tablet (20 mg) by mouth once daily. 90 tablet ctive lisinopriL-hydrochlorothiazide 20-12.5 mg tablet Indications:Uncontrolled hypertensionTake 1 tablet by mouth once daily. 90 tablet ctive rosuvastatin (Crestor) 20 mg tablet Indications:Mixed hyperlipidemiaTake 1 tablet (20 mg) by mouth once daily. 90 tablet ctive Active Problems ProblemNoted DateDiagnosed DateBilateral carotid artery bbohtfa4407/17/2024hest ikgrjfne61/27/2025MI 26.0-26.9,adult05/08/2024Former ybxhdc0605/08/2024 Uncontrolled kyfyhafehibi37/18/2024History of prostate wdpdeq6105/08/2024Hx of bladder npgmav2405/08/2024History of fractured rib05/08/2024Hyperlipidemia 05/08/2024Unequal blood pressure in upper lhkvnuetelz99/18/2024Left carotid bruit05/08/2024Medication course daueqae3405/08/2024Shortness of bslkit1705/08/2024 Family History Medical HistoryRelationNameCommentsDiabetesFatherHypertensionFatherHypertension MotherRelationNameStatusCommentsFatherMother Social History Tobacco UseTypesPacks/DayYears UsedDateSmoking Tobacco: FormerCigarettesQuit: 2004Smokeless Tobacco: Never Tobacco Cessation:Counseling Given: Yes Alcohol UseStandard Drinks/WeekCommentsYes0 (1 standard drink = 0.6 oz pure alcohol)sociallySex and Gender InformationValueDate RecordedSex Assigned at BirthNot on fileLegal GgwEmvw84/26/2022 3:43 AM ESTGender IdentityNot on file Sexual OrientationNot on file Last Filed Vital Signs Vital SignReadingTime TakenCommentsBlood Nfsycamd371/80007/17/2024 11:17 AM EST Updth6624/27/2025 10:51 AM ESTTemperature--Respiratory Rate--Oxygen Saturation-- Inhaled Oxygen Concentration--Otiddc33.6 kg (195 lb 6.4 oz)07/17/2024 10:51 AM OJHTggjwh567.9 cm (6')07/17/2024 10:51 AM ESTBody Mass Index26. 10:51 AM EST Plan of Treatment Health MaintenanceDue DateLast DoneCommentsCT Uyodxymyaxdk1951Colonoscopy 1Colorectal Cancer Ajvtgqedz1951FIT-DNA (Cologuard)1950FIT 1Lipid Panel1950Medicare Annual Wellness Visit (AWV)1950 Rpbhhdvybprpm1951TSH Level1951MMR Vaccines (1 of 1 - Standard series)2Diabetes Ldgewgevi22/15/1969Hepatitis C Ktylzzxfh01/15/1969RSV High Risk: (Elderly (60+) or Population) (1 - Risk 50-74 years 1-dose series)2001Abdominal Aortic Aneurysm (AAA) Xcwfruzzm36/15/2016Influenza Vaccine (#1)/, 03/23/2023, 03/27/2022, Additional history existsCOVID-19 Vaccine (2024- season), 04/16/2022, 03/27/2022, Additional history existsDTaP/Tdap/Td Vaccines (3 - Td or Tdap) , 06/29/2013, 03/10/2000Pneumococcal VaccineCompleted 10/11/2017, 07/22/2016Zoster AcydesbvTxolsdmwq47/23/2024, 03/23/2023HIB Vaccines Aged OutNo longer eligible based on patient's age to complete this topicHPV VaccinesAged OutNo longer eligible based on patient's age to complete this topic Hepatitis A VaccinesAged OutNo longer eligible based on patient's age to complete this topicHepatitis B VaccinesAged OutNo longer eligible based on patient's age to complete this topicIPV VaccinesAged OutNo longer eligible based on patient's age to complete this topicMeningococcal VaccineAged OutNo longer eligible based on patient's age to complete this topicRotavirus VaccinesAged Out No longer eligible based on patient's age to complete this topic Insurance [id number] [place] [address] [address] [place] [address] Care Teams Team MemberRelationshipSpecialtyStart DateEnd Deandre Staley MD [address] [facility] [place] [address] PCP - GeneralFamily Ddkbqzmp08/18/24
--- OUTSIDE RECORDS SUMMARY | 2025-05-21 09:02 | XMS_ITS | Clinical Summary ---
Author Organization [facility] Healthcare Address [address] [place] [address] Care Team Providers Care Home Care Manager Rn Name Role Phone Deandre Staley MD Primary Care Provider [phone] Allergies Active AllergyReactionsCriticalityNoted QylgJqiirsqwPpkaaihBwmjVlz16/10/2017 Other Reaction(s): hives/rashes Other Reaction(s): Agitation, hives/rashes Agitation, Doesn't work Oabxcxwyrgf49/25/2023 Other Reaction(s): anxiety Oxycodone-Fznecmmiduzsg88/25/2023 Other Reaction(s): agitation, irritation pt states this does not work for pt, pt is not allergic to vicodin Tizanidine Hcl01/12/2023 Other Reaction(s): Unknown Medications MedicationSigDispense QuantityRefillsLast FilledStart DateEnd DateStatus pantoprazole (ProtoNix) 40 MG EC tablet Take 40 mg by mouth at bedtime.10/18/2022ctive Qruyfqpvrce-Mybjyxsia-Apjmwo (Trelegy Ellipta) 100-62.5-25 MCG/ACT aerosol powder Inhale.Active levothyroxine (Synthroid, Levoxyl) 25 MCG tablet Take 12.5 mcg by mouth in the morning. Take before meals.Active liothyronine (Cytomel) 25 MCG tablet Take 25 mcg by mouth in the morning.10/04/2023ctive lisinopril-hydroCHLOROthiazide 20-12.5 MG tablet Take 1 tablet by mouth in the morning.ctive rosuvastatin (Crestor) 20 MG tablet Take 20 mg by mouth in the morning.6Active sildenafil (Viagra) 100 MG tablet TAKE 1 TABLET BY MOUTH 1 HR PRIOR TO SEXUAL ACTIVITY NEEDED. DON T EXCEED 1 TABLET IN A 24 HR LMXFJW7210/14/2023ctive solifenacin (VESIcare) 10 MG tablet 5Active Active Problems ProblemNoted DateDiagnosed DateBilateral wfpqogan36/25/2023ladder cancer 01/12/2023ervical spondylosis with iuzlsrrsasyyb15/25/2023hronic pain 01/12/20234344Thjwfpwolf73/25/2023 Overview (01/12/2023): left leg from [place] to ankle- box with snowblower in it slipped off a cart and banged his leg. Foot pink and dry with immediate capillary refill, 4t pedal and poterior tibial pulses. Erectile dysfunction after radical giebmxazvnlsk30/25/2023HTN (hypertension) 01/12/2023lenohumeral arthritis, left01/12/2023History of kidney stones 01/12/2023History of prostate uamxdk3201/12/2023Idiopathic gout01/12/2023 Overview (01/12/2023): lots of inflammation per pt sometimes has to get steroids Paresthesia of skin01/12/2023Sensorineural hearing loss, rsyfjrxej84/25/2023 Shoulder impingement hlzzdder66/25/2023Spondylolisthesis, cervical region 01/12/2023Umbilical jnbsuv7401/12/2023Essential uczzsrcfaesm60/31/2012 Rfajbzudayuupg62/31/2012 Encounters DateTypeDepartmentCare YrbbLruudhpmefk02/15/2025Results Follow-Up [facility] [address] [place] [phone] Cristal Mackey MD Dermatopathology exam02/27/2025 11:15 AM EDTOffice Visit [facility] [address] [place] [phone] Cristal Mackey MD Neoplasm of unspecified behavior of bone, soft tissue, and skin (Primary Dx); Actinic nplrzvnoc94/09/2025Bamboo flowsheet [facility] [address] [place] [address] Cristal Mackey MD 02/27/2025Travelfrom Last 3 Months Immunizations ImmunizationAdministration DatesNext DueInfluenza, High Dose Seasonal, Preservative Free04/03/2020Influenza, High-dose Seasonal, Quadrivalent, Preservative Free03/27/2022Influenza, Seasonal, Quadrivalent, Adjuvanted 05/23/2020Influenza, Xegcztxgnwz95/25/2019Influenza, injectable, quadrivalent, preservative free05/22/2019Influenza, recombinant, quadrivalent, injectable, preservative free05/29/2019Moderna Bivalent Booster Hyxcmghwppp73/27/2022 Pneumococcal Conjugate PCV 13007/22/2016Pneumococcal Polysaccharide PPSV23 10/11/2017TD (adult), 2 Lf tetanus toxoid, preservative free, xwfekpiq71/08/2019 Td (adult), nmdamfmrwjy15/20/1199Sryx46/09/2014 Family History Medical HistoryRelationNameCommentsDiabetesFatherHypertensionFatherDiabetes MotherRelationNameStatusCommentsDaughterAliveFatherAliveMaternal Grandfather DeceasedMaternal GrandmotherDeceasedMotherDeceasedPaternal GrandfatherDeceased Paternal GrandmotherDeceasedSonAlive Social History Tobacco UseTypesPacks/DayYears UsedDateSmoking Tobacco: FormerCigarettes Smokeless Tobacco: Never Tobacco Cessation:Counseling Given: Not Answered Alcohol UseStandard Drinks/WeekCommentsYes0 (1 standard drink = 0.6 oz pure alcohol)caffeine 3-4 cups per daySex and Gender InformationValueDate RecordedSex Assigned at BirthNot on fileLegal YntLxgj4009/02/2022 6:48 PM EDTGender Identity Not on fileSexual OrientationNot on file Last Filed Vital Signs Vital SignReadingTime TakenCommentsBlood Ukljxsak023/7504/04/2024 10:20 AM EDT Pulse--Temperature--Respiratory Rate--Oxygen Saturation--Inhaled Oxygen Concentration--Cszedj36.2 kg (190 lb)10/06/2024 9:56 AM TEMFzeltm912.9 cm (6') 10/06/2024 9:56 AM EDTBody Mass Index25.77010/06/2024 9:56 AM EDT Plan of Treatment DateTypeDepartmentCare Team (Latest Contact Info)Zujquqepguc41/27/2026 10:00 AM ESTOffice Visit [facility] [address] [place] [address] Jr. Man Colmenares, DO [address] [place] [address] 09/11/2025 10:45 AM EDTOffice Visit [facility] [address] [place] [address] Cristal Mackey MD [address] [place] [address] Health MaintenanceDue DateLast DoneCommentsCT Knowunbxxmjh1950Colonoscopy 1950olorectal Cancer Ytmwbrkik1951FIT-DNA1950FIT1950 FOBT1950 5656Gaiqottjdbkub1951OVID-19 Vaccine (2024- season) , 04/16/2022, 05/06/2021, Additional history existsInfluenza Vaccine (#1)5008/14/2024, 03/23/2023, 03/27/2022, Additional history existsPneumococcal Vaccine: 65+ QtaoxPdagqditt09/23/2018, 07/22/2016 Procedures Procedure NamePriorityDate/TimeAssociated DiagnosisCommentsCRYOTHERAPY SKIN UMZLCMAppavqr69/09/2025 11:22 AM EDT Actinic keratosis SKIN / NAIL RSKNRAIhhlqff16/09/2025 11:21 AM EDT Neoplasm of unspecified behavior of bone, soft tissue, and skin DERMATOPATHOLOGY KSLNHnasyzm24/09/2025 12:00 AM EDT Neoplasm of unspecified behavior of bone, soft tissue, and skin from Last 3 Months Results * Cryotherapy, skin lesion (02/27/2025 11:22 AM EDT) Narrative Authorizing ProviderResult TypeResult StatusEmily A Petitti MDDERM PROCEDURE ORDERABLESFinal Result * Lesion biopsy (02/27/2025 11:21 AM EDT) Narrative Flavia Dupont MA - 02/27/2025 11:21 AM EDT Type of biopsy: tangential Informed consent: discussed and consent obtained ?? Informed consent comment: ??The risks and benefits of the biopsy were discussed. Risks include but are not limited to bleeding, infection, scarring, pain, and nerve damage. An opportunity to ask questions prior to the procedure was permitted and all questions were answered. Patient was prepped and draped in usual sterile fashion: area cleansed with alcohol. Anesthesia: the lesion was anesthetized in a standard fashion ?? Anesthetic: ??1% lidocaine w/ epinephrine 1-100,000 buffered w/ 8.4% NaHCO3 Instrument used: DermaBlade ?? Hemostasis achieved with: electrodesiccation ?? Outcome: patient tolerated procedure well ?? Outcome comment: ??The specimen was placed in a prelabeled formalin container to be sent for pathology Post-procedure details: sterile dressing applied and wound care instructions given ?? Post-procedure details comment: ??Emphasized need to contact clinic for any signs of infection, uncontrollable bleeding, or complications. Dressing type: bandage ?? Additional details: ??Photo taken Amount of lidocaine used: 1.0 cc Authorizing ProviderResult TypeResult StatusEmily A Petitti MDDERM PROCEDURE ORDERABLESFinal Result * Dermatopathology exam (02/27/2025 12:00 AM EDT)ComponentValueRef RangeTest MethodAnalysis TimePerformed AtPathologist SignatureSPECIMEN TYPE SPECIMEN: LEFT FOREARM- POSTERIOR [facility] ICD10 CodeD23.60[facility] DIAGNOSTICSPROTOCOLF - FLATAURORA DIAGNOSTICSFinal DiagnosisVERRUCAL KERATOSIS (SEE COMMENT). COMMENT: The lesion shows features of a senescent verruca. [facility]AGNOSTICSGross TextAURORA DIAGNOSTICSMicroscopic DescriptionMicroscopic examination performed.ERICA [id number]*1[facility] DIAGNOSTICSSpecimen (Source)Anatomical Location / LateralityCollection Method / VolumeCollection TimeReceived TimeSkinTopography unknown / Zxttmcf3802/27/2025 11:21 AM EDTComment: Differential Diagnosis: AK vs SCC Check Margins: No Size of lesion: 0.6 x 0.6 cm Diagnosis: (D49.2) Neoplasm of unspecified behavior of bone, soft tissue, and skin Plan: Lesion biopsy Narrative Authorizing ProviderResult TypeResult StatusEmily Vee WHITTAKER PATHOLOGY ORDERABLESFinal ResultPerforming OrganizationAddressCity/State/ZIP CodePhone Number [facility] from Last 3 Months Insurance Care Teams Team MemberRelationshipSpecialtyStart DateEnd Deandre Staley MD [address] [place] [phone] PCP - GeneralFamily Medicine01/10/25
--- OUTSIDE RECORDS SUMMARY | 2025-05-21 09:02 | XMS_ITS | Clinical Summary ---
Author Organization [facility] Address [address] [place] [address] Care Team Providers Care Can Dryer Name Role Phone Unavailable Primary Care Provider Unavailabl e Allergies Active AllergyReactionsCriticalityNoted XvglWpbouzkhQptzxmaUgqpppg55/23/2025 Oxycodone-IepalvynnxwzwEyyroiu64/25/2023 Other Reaction(s): agitation, irritation pt states this does not work for pt, pt is not allergic tovicodin Tizanidine JblQghfhev29/25/2023 Other Reaction(s): Unknown Medications MedicationSigDispense QuantityRefillsLast FilledStart DateEnd DateStatus colchicine (Colcrys) 0.6 mg tablet Take 0.6 mg by mouth in the morning.02/03/2023ctive lisinopril 20 mg tablet Take 20 mg by mouth in the morning.02/19/2017Active lisinopriL-hydrochlorothiazide 20-12.5 mg tablet Take 1 tablet by mouth in the morning.07/17/2024tive liothyronine (Cytomel) 25 mcg tablet Take 12.5 mcg by mouth in the morning.10/04/2023ctive Trelegy Ellipta 100-62.5-25 mcg blister with device Inhale 1 puff in the morning.02/03/2023ctive pantoprazole (ProtoNix) 40 mg EC tablet Take 40 mg by mouth before breakfast.10/18/2022ctive diclofenac (Voltaren) 75 mg EC tablet Take 75 mg by mouth twice a day.01/14/2017Active tiZANidine (Zanaflex) 4 mg tablet Take 4 mg by mouth every 6 (six) hours if needed.5Active sildenafil (Viagra) 100 mg tablet Take 100 mg by mouth if needed.10/04/2023ctive HYDROcodone-acetaminophen ([place]) 5-325 mg tablet Take 1 tablet by mouth every 4 (four) hours if needed.08/12/2023ctive rosuvastatin (Crestor) 20 mg tablet Take 20 mg by mouth in the morning.5007/17/2025ctive aspirin 81 mg chewable tablet Indications:Carotid stenosis, asymptomatic, bilateralChew 1 tablet (81 mg) every other day. 45 tablet /ctive Active Problems ProblemNoted DateDiagnosed DateBMI 23.0-23.9, adult12/11/2024hange in bowel ffqzfw2412/11/2024hronic GERD12/11/2024GERD (gastroesophageal reflux disease) 12/11/2024hronic obstructive pulmonary qrcxxgk8012/11/20245361Nhsopiunhx71/23/2025 Overview (12/11/2024): left leg from [place] to ankle- box with snowblower in it slipped off a cart and banged his leg. Foot pink and dry with immediate capillary refill, 4t pedal and poterior tibial pulses. History of colonic lbkwdt9512/11/2024Idiopathic gout12/11/2024 Overview (12/11/2024): lots of inflammation per pt sometimes has to get steroids Iron deficiency vjsqef5712/11/2024hest bokonxll40/27/2025ilateral carotid artery hqxrvjs1807/17/2024MI 26.0-26.9,adult05/08/2024Former yalcez3305/08/2024History of fractured rib05/08/2024Medication course bmthuyx5405/08/2024Shortness of breath 05/08/2024Unequal blood pressure in upper vsjwvzhuuzv45/18/2024ilateral bsanxree36/25/2023ladder ruwwdj7801/12/2023ervical spondylosis with wlooibnbqzdyx53/25/2023aresthesia of skin01/12/2023hronic pain01/12/2023 Erectile dysfunction after radical mqhyyiydialyi90/25/2023lenohumeral arthritis, left01/12/2023History of kidney hxwmli4401/12/2023History of prostate owmogw7301/12/2023Sensorineural hearing loss, avwbrydvu85/25/2023Shoulder impingement bdvpdazf67/25/2023Spondylolisthesis, cervical lzorrt8701/12/2023 Umbilical ftivse1601/12/2023Essential obasehvvialn42/31/2012Osteoarthritis 04/20/2012 Family History Medical HistoryRelationNameCommentsDementiaFatherCerebral aneurysmMother HypertensionSisterRelationNameStatusCommentsBrotherDeceasedFatherDeceasedMother DeceasedSisterAlive Social History Tobacco UseTypesPacks/DayYears UsedDateSmoking Tobacco: FormerCigarettesPassive Smoke Exposure: PastSmokeless Tobacco: Never Tobacco Cessation:Counseling Given: Not Answered Alcohol UseStandard Drinks/WeekCommentsNot Asked0 (1 standard drink = 0.6 oz pure alcohol)occasionalSex and Gender InformationValueDate RecordedSex Assigned at BirthNot on fileLegal EoiRefh4011/29/2024 9:30 AM EDTGender IdentityNot on file Sexual OrientationNot on file Last Filed Vital Signs Vital SignReadingTime TakenCommentsBlood Ndchjyxj181/78012/11/2024 9:52 AM EDT Izvov327412/11/2024 9:05 AM EDTTemperature--Respiratory Rate--Oxygen Stxwhddrmc58% 12/11/2024 9:05 AM EDTInhaled Oxygen Concentration--Ggptvw37.5 kg (184 lb) 12/11/2024 9:05 AM NKAZvstzl402.9 cm (6')12/11/2024 9:05 AM EDTBody Mass Index 24.95012/11/2024 9:05 AM EDT Plan of Treatment Health MaintenanceDue DateLast DoneCommentsCT Ghjcgnwydaqa1950Colonoscopy 1951olorectal Cancer Qnfphqxct1951FIT-DNA1950FIT1950 FOBT1950Medicare Annual Wellness (AWV)1950 4087Nyiaarezmumih1950 Depression Unzpncnaj19/15/1963Fall Risk Mfqkyxgwh30/15/2016COVID-19 Vaccine ( season)2/, 04/16/2022, 04/16/2022, Additional history existsInfluenza Vaccine (#1)502/, 03/23/2023, 03/27/2022, Additional history existsAdult Bqtgmwq53/08/84082009/26/2018, 06/29/2013, 03/10/2000Pneumococcal Vaccine: 50+ QbrkcWhbkpmdkh29/23/2018, 07/22/2016Zoster JjagnbaoNaqplaofp94/23/2024, 03/23/2023HIB VaccinesAged OutNo longer eligible based on patient's age to complete this topicHPV VaccinesAged OutNo longer eligible based on patient's age to complete this topicIPV VaccinesAged OutNo longer eligible based on patient's age to complete this topicMeningococcal B VaccineAged OutNo longer eligible based on patient's age to complete this topic Meningococcal VaccineAged OutNo longer eligible based on patient's age to complete this topicRotavirus VaccinesAged OutNo longer eligible based on patient's age to complete this topic Insurance
--- OUTSIDE RECORDS SUMMARY | 2025-05-21 09:05 | XMS_ITS | CCD ---
Author Organization [facility] Care Team Providers Care Hone Operator Name Role Phone MD Deandre Monterroso Primary Care Provider [phone] MD Lionel Whitney Attending Provider Deandre Monterroso Primary Care Physician [phone] Leidy Plummer Unavailable Unavailable MD Deandre Monterroso Primary Care Provider [phone] MD Lionel Whitney Attending Provider Zoran Chavez [...] Unavailable MD Deandre Monterroso Primary Care Provider [phone] MD Zoran Chavez Attending Provider [phone] MD Deandre Monterroso Primary Care Provider [phone] LIDA Lowery Attending Provider MD Deandre Monterroso Primary Care Provider [phone] LIDA Lowery Attending Provider Deandre Monterroso MD Primary Care Provider [phone] Lionel WHITNEY Attending Unavailable Lionel WHITNEY Attending Unavailable Lionel WHITNEY Admitting Unavailable Deandre Monterroso MD Primary Care Provider [phone] Lionel Whitney MD Attending Provider Lionel Whitney Admitting Unavailable Lionel Whitney Attending Unavailable Deandre Monterroso Primary Care Unavailable Deandre Monterroso Primary Care Unavailable Esther Lowery Admitting Unavailable Esther Lowery Attending Unavailable Deandre Monterroso Primary Care Unavailable Esther Lowery Admitting Unavailable Esther Lowery Attending Unavailable Lionel Whitney MD Unavailable Deandre Monterroso MD Primary Care Provider [phone] Aftab ZELAYA, Ingrid Tucker Unavailable Norberto Andrade MD Unavailable Deandre Monterroso MD Primary Care Provider CADY ESPINOSA Referring Unavailable DEANDRE MONTERROSO Primary Care Unavailable CADY ESPINOSA Referring Unavailable DEANDRE MONTERROSO Primary Care Unavailable CADY ESPINOSA Referring Unavailable DEANDRE MONTERROSO Primary Care Unavailable CADY ESPINOSA Referring Unavailable DEANDRE MONTERROSO Primary Care Unavailable Deandre Monterroso MD Primary Care Provider [phone] Lionel Whitney MD Unavailable Deandre Monterroso MD Primary Care Provider [phone] ALEXANDREA GUNTER Attending Unavailable RAYMOND, NORBERTO [...] Unavailable Deandre Monterroso MD Primary Care Provider [phone] Syeda NOBLE, Tamiko Kilgore Attending Unavailable Syeda [...] of OnsetReaction(s) Facility (10 sources)Acetaminophen; Translations: [acetaminophen]Drug Wiycnfd83-27-1354 Itching, Itching agitated, Itching agitated, [facility] (20 sources)Codeine; Translations: [Codeine]Drug Xxtevok82-29-8978xhnuFisher-[facility] (12 sources)oxyCODONE; Translations: [oxycodone]Drug Gmejkxq73-89-9865Qdmkpcm, agitated, Itching, agitated, [facility] (16 sources)Acetaminophen / oxyCODONE; Translations: [acetaminophen-oxycodone] Drug AllergyaggitationExecutive [facility] Rolando Comment on above:pt states this does not work for pt, pt is not allergic to vicodin (7 sources)cyclobenzaprineDrug Izibgkr86-27-7382koxacleMbitrqjmiCity Hospital (20 sources)HYDROcodoneDrug Ivgleln64-74-1454ooemktwLzibdcuvf [facility] (7 sources)tiZANidineDrug Nfkjaxt28-27-9026ezyouRhrwnphniEast [facility] (7 sources)Acetaminophen / HYDROcodone; Translations: [Vicodin]Drug [facility]ergy[facility] (2 sources)Acetaminophen / oxyCODONEDrug AllergyUniversity Hospitals [facility] Rep[facility] (1 source)atorvastatinDrug AllergyUniversity Hospitals [facility] (2 sources)tiZANidineDrug AllergyUniversity Hospitals [facility] (5 sources)Acetaminophen / oxyCODONE; Translations: [Percocet 5/325]Drug Allergy [facility] Repository (1 source)cyclobenzaprineDrug Lhfkkhw37-40-4369AcmrzykwsThe [facility] Rep[facility] (1 source)HYDROcodoneDrug Ssjjtzb21-57-5800VdmtiyxxnThe [facility] Rep[facility] (1 source)tiZANidineDrug Ybwgybe06-60-8973YirtkvwyoThe [facility] (16 sources)Acetaminophen / oxyCODONE; Translations: [OXYCODONE-ACETAMINOPHEN] Drug Ofbpdsd01-46-1394YBXN [facility] (16 sources)tiZANidine; Translations: [TIZANIDINE HCL]Drug Jfcgyvg90-75-5974VIBO [facility] Medications Current Medications MedicationDrug Class(es)DatesSig (Normalized)Sig (Original)acetaminophen 325 mg / HYDROcodone bitartrate 5 mg oral tablet (20 sources)Opioid AgonistStart: 76-64-6029iplbdxdfhpiwo-hydrocodone 325 mg-5 mg oral tablet 1 tab(s), Refill(s) 0 Start Date: 10/09/24 Status:Ordered Repeat number: 1Start: 01-00-1399dtay 1 tablet by mouth every twenty-four hours as neededHYDROcodone-acetaminophen (NORCO) 5-325 mg per tablet Take 1 tablet by mouth at bedtime as needed. 08/12/2023 ActiveStart: 50-86-7857qejm 1 tablet by mouth every twenty-four hours as neededHYDROcodone-acetaminophen ([place]) 5-325 mg tablet Take 1 tablet by mouth once daily as needed for severe pain (7 - 10). 08/12/2023 ActiveStart: 46-33-3021Kpxeochdgcx-Acetaminophen 5-325 mg tablet Active 1 TAB PO August 12, 2023 12:00amStart: 37-06-9566kihw 1 tablet by mouth every six hours as needed for painacetaminophen-hydrocodone 325 mg-5 mg oral tablet 1 tab(s), Oral, q6hr as needed for pain, Refill(s) 0 Start Date: 02/03/23 Status: OrderedamLODIPine 10 mg oral tablet (20 sources)Dihydropyridine Calcium Channel BlockerStart: 08-12-2023 End: 19-59-2605jjELWJCnrt (Norvasc) 10 MG tablet 01/22/2024 10/06/2024 Discontinued (Therapy completed)Start: 02-10-2023 End: 44-22-4953mwmj 1 tablet by mouth once dailyamLODIPine (NORVASC) 5 mg tablet Take 5 mg by mouth once daily. 02/10/2023 07/26/2024 Discontinued (Discontinued by another Health Care Provider)Start: 08-07-2019 End: 41-13-4024denm 1 tablet by mouth at bedtimeAmlodipine 10 mg Tablet Discontinued 10 MG PO Bedtime August 07, 2019 12:00am October 17, 2021 1 1:30amaspirin 81 mg chewable tablet (1 source)Platelet Aggregation Inhibitor, Nonsteroidal Anti-inflammatory Drug Start: 12-11-2024 End: 34-52-1489xcnazgk 81 mg chewable tablet Take 81 mg by mouth every 48 hours. 12/11/2024 12/11/2025 Activecarvedilol 25 mg oral tablet (20 sources)alpha-Adrenergic Boogie, beta-Adrenergic BlockerStart: 10-17-2021 take 1 tablet by mouth twice dailyCarvedilol 25 mg Tablet Active 25 MG PO Twice daily October 16, 2021 11:00pmStart: 88-06-4980nqao 2 tablets by mouth twice dailycarvedilol 6.25 mg Tab 12.5 mg = 2 tab(s), Oral, BID, Refills(s) 0 Start Date: 09/19/21 Status: OrderedStart: 77-72-1170kxqnngmobf 6.25 mg Tab Refills(s) 0 Start Date: 09/19/21 Status: Orderedtake 1 tablet by mouth every twelve hours Carvedilol 12.5 MG 1 tablet with food Orally Twice a day Activecelecoxib 200 mg oral capsule (5 sources)Nonsteroidal Anti-inflammatory DrugStart: 10-27-2024 End: 90-97-1439gvoe 1 capsule by mouth once daily at mealtimecelecoxib (CeleBREX) 200 MG capsule Indications: Acute hip pain, left Take 1 capsule (200 mg) by mouth Daily Take with food 30 capsule 1 10/27/2024 12/26/2024 Active colchicine 0.6 mg oral tablet (17 sources)Start: 02-03-2023 End: 94-75-5174vfdn 1 tablet by mouth once daily as needed for painColcrys 0.6 mg oral tablet 0.6 mg = 1 tab(s), Oral, Daily, PRN Gout pain, Refills(s) 0 Start Date: 02/03/23 Status: Ordered Repeat number: 1diclofenac sodium 75 mg delayed release oral tablet (20 sources)Nonsteroidal Anti-inflammatory DrugStart: 10-17-2021 End: 07-04-7207xcjo 1 tablet by mouth twice dailydiclofenac sodium 75 mg Oral EC Tab 75 mg = 1 tab(s), Oral, BID, Refills(s) 0 Start Date: 02/03/23 Status: Ordered Repeat number: 1Start: 08-07-2019 End: 40-41-1873pbjo 1 tablet by mouth twice daily as needed for painDiclofenac Sodium 75 mg Tablet,Delayed Release (Dr/Ec) Discontinued 75 MG PO Twice daily as needed for Pain August 07, 2019 12:00am April 19, 2020 7:04amdoxazosin 1 mg oral tablet (20 sources)alpha-Adrenergic BlockerStart: 07-17-2024 End: 63-35-6119usciitdys 1 mg Tab 1 mg = 1 tab(s), Refills(s) 0 Start Date: 10/09/24 Status: Ordered Repeat number:1enteric contrast (will be provided with radiology test) (13 sources)Start: 28-53-4551ihxpqep contrast (will be provided with radiology test) For CT CHESTABD/PEL W IVCON Routine order Administer, As Directed One Time Only, via Oral, Rectal, both Oral and Rectal, Enteric Tube, Stoma orIndwelling Catheter, Enteric Contrast as designated per enteric contrast guidelines 1 Each 08/16/2024 Activefluorouracil 50 mg/ml topical cream (7 sources)Nucleoside Metabolic InhibitorStart: 09-11-2024 End: 30-74-8187Hevvswdfkmzm 5 % cream Apply to directed areas on the forearms and backs of hands twice a day x 14 days. Dispense 30 day supply but only use for 14 days. 09/11/2024 Yzjnja23 actuat fluticasone furoate 0.1 mg/actuat / umeclidinium 0.0625 mg/actuat / vilanterol 0.025 mg/actuat dry powder inhaler (20 sources)Anticholinergic, Corticosteroid, beta2-Adrenergic AgonistStart: 30-70-5446tiev 1 puff(s) by inhalation once xksckvwoyerhmezi-lucwedqld-fyfzvfgt (TRELEGY ELLIPTA) 100-62.5-25 mcg inhalation powder = 1 puff(s), Inhalation, Daily, Refills(s) 0 02/03/2023 ActiveStart: 08-07-2019 Lmnoguqamjq-Xrjiiyrbk-Cjgciarn (Trelegy Ellipta) 100-62.5-25 mcg Blister With Device Active 1 INH INHALATION Daily August 07, 2019 3:01pmStart: 08-07-2019 Drpcellyrlo-Hgfeuptxi-Mhrbxznl (Trelegy Ellipta) 100-62.5-25 mcg Blister With Device Active 1 INH INHALATION Daily August 07, 2019 12:00amStart: 63-07-9155Skklrblmbzh-Umeclidin-Vilanter (Trelegy Ellipta) 100-62.5-25 mcg Blister With Device Active 1 INH INHALATION Daily August 07, 2019 1:00am Mitkdwavzhe-Cywasvmlp-Pznulz (Trelegy Ellipta) 100-62.5-25 MCG/ACT aerosol powder Inhale. Activetake 1 puff(s) by inhalation once daily dxmwmdqnvco-xcrkdrugh-itbtzvhw (TRELEGY ELLIPTA) 100-62.5-25 mcg inhalation powder Inhale 1 Puff asinstructed once daily. Activetake 1 puff(s) by inhalation in the morningTrelegy Ellipta 100-62.5-25 mcg blister with device Inhale 1 puff early in the morning.. ActivehydroCHLOROthiazide 12.5 mg / lisinopril 20 mg oral tablet (20 sources)Thiazide Diuretic, Angiotensin Converting Enzyme InhibitorStart: 07-17-2024 End: 87-55-9711fteg 1 tablet by mouth in the morninglisinopril- hydroCHLOROthiazide 20-12.5 MG tablet Take 1 tablet by mouth in the morning. 07/17/2024 07/17/2025 ActiveStart: 05-08-2024 End: 85-14-6895nxyn 1 tablet by mouth once dailylisinopril-hydroCHLOROthiazide (ZESTORETIC) 20-12.5 mg per tablet Take 1 tablet by mouth once daily. 07/17/2024 07/17/2025 Activeiv contrast (will be provided with radiology test) (13 sources)Start: 05-55-9132lc contrast (will be provided with radiology test) [...] oral tablet (3 sources)Quinolone AntimicrobialStart: 11-25-2023 End: 25-51-0780asimBCBMecqw (Levaquin) 750 MG tablet 11/25/2023 10/06/2024 Discontinued (Therapy completed)levothyroxine sodium 0.025 mg oral tablet (16 sources)l-Thyroxinelevothyroxine (Synthroid, Levoxyl) 25 MCG tablet Take 12.5 mcg by mouth in the morning. Take beforemeals. Activelevothyroxine (Synthroid, Levoxyl) 25 MCG tablet Take by mouth Daily before meals Active End: 53-39-1545berm 0.5 tablet by mouth in the morninglevothyroxine (Synthroid, Levoxyl) 25 mcg tablet Take 0.5 tablets (12.5 mcg) by mouth early in the m orning.. 05/08/2024 Discontinued (Therapy completed)liothyronine (20 sources)l-TriiodothyronineStart: 93-52-3931hfer 1 tablet by mouth once daily Liothyronine 5 mcg tablet Active 25 MCG PO Daily October 10, 2023 11:00pmStart: 69-00-8056blil 25 ug by mouth once dailyLiothyronine Active 25 MCG PO Daily October 11, 2023 12:00amStart: 65-64-7836thty 1 tablet by mouth in the morning liothyronine (Cytomel) 25 MCG tablet Take 25 mcg by mouth in the morning. 10/04/2023 ActiveStart: 14-98-9250pwbi 0.5 tablet by mouth once daily liothyronine (Cytomel) 25 mcg tablet Take 0.5 tablets (12.5 mcg) by mouth once daily. 10/04/2023 ActiveStart: 92-14-2070tmjernxdnkyg 25 mcg Tab Refills(s) 0 Start Date: 10/04/23 Status: Ordered Repeat number: 1lisinopril 20 mg oral tablet (20 sources)Angiotensin Converting Enzyme InhibitorStart: 06-22-2017 End: 79-22-9449xici 1 tablet by mouth at bedtimeLisinopril 40 mg Tablet Discontinued 40 MG PO Bedtime August 07, 2019 12:00am October 17, 2021 1 1:24amStart: 02-19-2017 End: 97-45-4214aeiqfblrxr 20 mg Tab 20 mg = 1 tab(s), Refills(s) 0 Start Date: 10/09/24 Status: Ordered Repeat number: 1methocarbamol 500 mg oral tablet (20 sources)Muscle RelaxantStart: 26-41-8255tvek 1 tablet by mouth every twenty- four hours as neededmethocarbamol (Robaxin) 500 mg tablet Take 1 tablet (500 mg) by mouth once daily as needed for muscle spasms. 04/21/2023 Active End: 91-54-9258owecivracvbrn 1,000 mg tablet Take 1,000 mg by mouth as needed (bedtime prn). 12/13/2024 Discontinued (Discontinued by another Health Care Provider) End: 13-14-5980Xhkrdhdpeuiii 1000 MG tablet Take 1,000 mg by mouth 10/06/2024 Discontinued (Therapy completed)Methocarbamol 1000 MG tablet Take 1,000 mg by mouth Activemethocarbamol 1,000 mg tablet Take 1,000 mg by mouth as needed (bedtime prn). Activemetoprolol tartrate 50 mg oral tablet (5 sources)beta-Adrenergic BlockerStart: 03-28-2024 End: 40-04-8196rdlfduxbaq tartrate (Lopressor) 50 MG tablet 03/28/2024 10/06/2024 Discontinued (Therapy completed)Start: 54-33-7746Vguhkklniz Tartrate Active MG PO March 28, 2024 12:00amMultivitamin preparation (10 sources)Start: 63-70-6708vdxt 1 tablet by mouth once dailyMultivitamin Active 1 TAB PO Daily October 17, 2021 12:31pmStart: 84-92-3080immm 1 tablet by mouth once dailyMultivitamin Active 1 TAB PO Daily October 16, 2021 11:00pm Start: 26-02-1143lafk 1 tablet by mouth once dailyMultivitamin Active 1 TAB PO Daily October 17, 2021 12:00amMultivitamin Tablet (1 source)Start: 26-18-5348nxoh 1 tablet by mouth once dailyMultivitamin Tablet [...] day Activeomeprazole 40 mg Cap-EC (2 sources)Start: 21-33-1842fkzn 1 capsule by mouth once dailyomeprazole 40 mg Cap-EC 40 mg = 1 cap(s), Oral, Daily, Refills(s) 0, Control of stomach acid Start Date: 08/22/14 Status: Orderedpantoprazole 40 mg delayed release oral tablet (20 sources)Proton Pump InhibitorStart: 09-32-0180Ixfyzcfonidt Active MG PO August 12, 2023 1:00amStart: 29-21-6155ztur 1 tablet by mouth at bedtime pantoprazole (ProtoNix) 40 MG EC tablet Take 40 mg by mouth at bedtime. 10/18/2022 Activerosuvastatin calcium 20 mg oral tablet (20 sources)HMG-CoA Reductase InhibitorStart: 05-08-2024 End: 87-33-7621naxf 1 tablet by mouth in the morningrosuvastatin (Crestor) 20 MG tablet Take 20 mg by mouth in the morning. 07/17/2024 07/17/2025 Active sildenafil 100 mg oral tablet (20 sources)Phosphodiesterase 5 InhibitorStart: 00-21-4737avsm 1 tablet by mouth once daily as neededsildenafil 100 mg Tab 100 mg = 1 tab(s), Oral, Daily, Take as needed 30 minutes prior to sexual relations, # 30 tab(s), Refills(s) 2, Pharmacy: [id number], 180, cm, 02/26/25 8:38:00 EDT, Height/Length Dosing, 86, kg, 02/26/25 8:38:00 EDT, Weight Dosing Start Date: 02/26/25 Status: Ordered Quantity: 30.0 Unit: tab(s) Repeat number: 3Start: 20-39-7451lrqr 1 tablet by mouth every hour as needed, then take 1 tablet by mouth every twenty- four hours asneededsildenafil (Viagra) 100 MG tablet TAKE 1 TABLET BY MOUTH 1 HR PRIOR TO SEXUAL ACTIVITY NEEDED. DON T EXCEED 1 TABLET IN A 24 HR PERIOD 10/14/2023 ActiveStart: 17-58-1534lcua 1 tablet by mouth every twenty-four hours sildenafil 100 mg Tab 100 mg = 1 tab(s), Oral, As Directed, Take 1 tablet 1 hr prior to sexual activity as needed. Don't exceed 1 tab (100 mg) in a 24 hr period., # 30 tab(s), Refills(s) 3, Pharmacy:[id number], 170, cm, 10/04/23 10:36:00 EDT, Height/Length Dosing, 84, kg, 10/04/23 10:36:00 EDT, Weight Dosing Start Date: 10/04/23 Status: Ordered Quantity: 30.0 Unit: tab(s) Repeat number: 4Start: 14-37-0373nnhr 1 tablet by mouth every twenty-four hours sildenafil 100 mg Tab 100 mg = 1 tab(s), Oral, Daily, Take 1 tablet 1 hr prior to sexual activity as needed. Don't exceed 1 tab (100 mg) in a 24 hr period., # 30 tab(s), Refills(s) 3, Pharmacy: [id number], 170, cm, 02/24/22 10:53:00 EDT, Height/Length Dosing, 78, kg, 02/24/22 10:53:00EDT, Weight Dosing Start Date: 07/05/22 Status: OrderedStart: 25-44-2554jxfgvrxizf 100 mg Tab 100 mg = 1 tab(s), Oral, Daily, Take 1 pill 30 minutes prior to sexual relations, # 30 tab(s), Refills(s) 3, Pharmacy: [id number], 170, cm, 09/19/21 10:16:00 EDT, Height/Length Dosing, 78, kg, 09/19/21 10:16:00 EDT, Weight Dosing Start Date: 09/19/21 Status: Orderedsolifenacin succinate 10 mg oral tablet (15 sources)Cholinergic Muscarinic AntagonistStart: 82-63-2702rtlzooelzka (VESIcare) 10 MG tablet 07/06/2024 ActiveTENS Unit (2 sources)Start: 10-44-6987dlRUFjtwxk 4 mg oral tablet (5 sources)Central alpha-2 Adrenergic AgonistStart: 92-21-8456gius 1 tablet by mouth every six hours as neededtiZANidine (ZANAFLEX) 4 mg tablet Take 4 mg by mouth every 6 hours as needed. 08/12/2024 ActiveStart: 74-36-6824adax 1-2 tablets by mouth at bedtime as [...] mcg-62.5 mcg-25 mcg inhalation powder (13 sources)Start: 06-22-8956allp 1 puff(s) by inhalation once dailyTrelegy Ellipta 100 mcg-62.5 mcg-25 mcg inhalation powder = 1 puff(s), Inhalation, Daily, Refills(s) 0 Start Date: 02/03/23 Status: Ordered Repeat number: 1Start: 16-11-8004zmdt 1 puff(s) by inhalation once dailyTrelegy Ellipta 100 mcg-62.5 mcg-25 mcg inhalation powder = 1 puff(s), Inhalation, Daily, Refills(s) 0 Start Date: 02/03/23 Status: Ordered Completed/Discontinued Medications MedicationDrug Class(es)DatesSig (Normalized)Sig (Original)allopurinol 300 mg oral tablet (13 sources)Xanthine Oxidase InhibitorStart: 08-07-2019 End: 90-89-2343qzro 1 tablet by mouth once dailyAllopurinol 300 mg Tablet Discontinued 300 MG PO Daily August 07, 2019 12:00am April 11, 2020 12:50pmbcg (TANISHA BCG) 50 mg in NaCl 0.9% 50 mL (6 sources)Start: 09-13-2024 End: 48-83-862403 mg, INTRAVESICAL, ONCE, 1 dose, On Wed09/13/24 at 1400, Instill into bladder via catheter and retain for 120 minutes, followed by bladder drainage. PROTECT FROM LIGHT Hazardous Chemotherapy Drug: Use appropriate PPE. Protect from Light.Start: 08-30-2024 End: 10-50-483356 mg, INTRAVESICAL, ONCE, 1 dose, On Wed08/30/24 at 1330, Instill into bladder via catheter and retain for 120 minutes, followed by bladder drainage. PROTECT FROM LIGHT Hazardous Chemotherapy Drug: Use appropriate PPE. Protect from Light.Start: 08-23-2024 End: 42-23-173969 mg, INTRAVESICAL, ONCE, 1 dose, On Wed08/23/24 at 1400, Instill into bladder via catheter and retain for 120 minutes, followed by bladder drainage. PROTECT FROM LIGHT Hazardous Chemotherapy Drug: Use appropriate PPE. Protect from Light.Start: 08-16-2024 End: 71-32-824592 mg, INTRAVESICAL, ONCE, 1 dose, On Wed08/16/24 at 1400, Instill into bladder via catheter and retain for 120 minutes, followed by bladder drainage. PROTECT FROM LIGHT Hazardous Chemotherapy Drug: Use appropriate PPE. Protect from Light.Start: 08-09-2024 End: 81-59-095738 mg, INTRAVESICAL, ONCE, 1 dose, On Wed08/09/24 at 1430, Instill into bladder via catheter and retain for 120 minutes, followed by bladder drainage. PROTECT FROM LIGHT Hazardous Chemotherapy Drug: Use appropriate PPE. Protect from Light.Start: 08-02-2024 End: 80-94-830992 mg, INTRAVESICAL, ONCE, 1 dose, On Wed08/02/24 at 1000, Instill into bladder via catheter and retain for 120 minutes, followed by bladder drainage. PROTECT FROM LIGHT Hazardous Chemotherapy Drug: Use appropriate PPE. Protect from Light.cephalexin 500 mg oral capsule (9 sources)Cephalosporin AntibacterialStart: 02-17-2022 End: 76-09-8414ngss 1 capsule by mouth every twelve hoursCephalexin 500 mg capsule Discontinued 500 MG PO Q12H 14 February 16, 2022 11:00pm July 11:08amStart: 74-35-4709adig 500 mg by mouth every twelve hours Cephalexin Active 500 MG PO Q12H 14 February 17, 2022 12:00amStart: 02-17-2022 take 500 mg by mouth every twelve hoursCephalexin Active 500 MG PO Q12H 14 February 17, 2022 12:00amciprofloxacin 500 mg oral tablet (13 sources)Quinolone AntimicrobialStart: 94-88-4754evro 1 tablet by mouth once dailyCipro 500 mg Tab 500 mg = 1 tab(s), Oral, Daily, Take 1 tablet the day before the procedure and 1 tablet after the procedure, # 2 tab(s), Refills(s) 0, Pharmacy: [facility]/pharmacy #[id number], 170, cm, 10/25/2410:14:00 EDT, Height/Length Dosing, 84, kg, 10/04/23 10:36:00 EDT, Weight Dosing Start Date: 04/13/24 Status: OrderedStart: 68-52-6898sxac 1 tablet by mouth once dailyCipro 500 mg Tab 500 mg = 1 tab(s), Oral, Daily, take one tab day before procedure and one tab after procedure, # 2 tab(s), Refills(s) 0, Pharmacy: [facility]/pharmacy #[id number], 170, cm, 01/20/23 10:45:00 EDT,Height/Length Dosing, 83.5, kg, 01/20/23 10:45:00 EDT, Weight Dosing Start Date: 01/20/23 Status: OrderedStart: 53-58-4056ysmh 1 tablet by mouth once dailyCipro 500 mg Tab 500 mg = 1 tab(s), Oral, Daily, Take 1 tablet the day before the procedure and 1 tablet after the procedure, # 6 tab(s), Refills(s) 0, Pharmacy: [facility]/pharmacy #[id number], 170, cm, 09/23/2311:23:00 EDT, Height/Length Dosing, 78, kg, 02/24/22 10:53:00 EDT, W... Start Date: 12/31/22 Status:OrderedStart: 60-22-3893tpqw 1 tablet by mouth once dailyCipro 500 mg Tab 500 mg = 1 tab(s), Oral, Daily, Take 1 tablet the day before the procedure and 1 tablet after the procedure, # 6 tab(s), Refills(s) 0, Pharmacy: [facility]/pharmacy #[id number], 170, cm, 02/24/2210:53:00 EDT, Height/Length Dosing, 78, kg, 02/24/22 10:53:00 EDT, W... Start Date: 07/02/22 Status:OrderedStart: 11-05-2021 take 1 tablet by mouth once dailyCipro 500 mg Tab 500 mg = 1 tab(s), Oral, Daily, Take 1 tab at nighttime prior to the day of procedure, then 1 tab right after the procedure, # 2 tab(s), Refills(s) 0, Pharmacy: [facility]/pharmacy #[id number], 17 0, cm, 11/05/21 11:37:00 EDT, Height/Length Dosing, 78, kg, 11/05/21... Start Date: 11/05/21 Status:OrderedcloNIDine hydrochloride 0.1 mg oral tablet (20 sources)Central alpha-2 Adrenergic AgonistStart: 02-17-2022 End: 84-05-4259ljsc 1 tablet by mouth twice dailyClonidine Hcl 0.1 mg Tablet Discontinued 0.1 MG PO Twice daily February 16, 2022 11:00pm October 11, 2023 2:25pmStart: 98-00-4657gjjl 0.1 mg by mouth twice dailyClonidine Hcl Active 0.1 MG PO Twice daily February 17, 2022 12:00amStart: 08-21-0241lpqz 0.1 mg by mouth twice dailyClonidine Hcl Active 0.1 MG PO Twice daily February 17, 2022 12:00am diazePAM 5 mg oral tablet (11 sources)BenzodiazepineStart: 04-19-2020 End: 88-26-9841trzc 1 tablet by mouth four times daily as needed for muscle spasmsDiazepam 5 mg Tablet Discontinued 5 MG PO Four times daily as needed for Muscle Spasm 40 10 2019 11:00pm October 17, 2021 11:30amdoxycycline hyclate 100 mg oral capsule (1 source)Tetracycline-class DrugStart: 64-07-8208kkno 1 capsule by mouth twice dailydoxycycline hyclate 100 mg Cap 100 mg = 1 cap(s), Oral, BID, Take 1 capsule the day before the procedure and 1 capsule after the procedure, # 2 cap(s), Refills(s) 0, Pharmacy: [facility]/pharmacy #[id number], 188, cm, 02/10/23 14:22:00 EDT, Height/Length Dosing, 82.9, kg, 02/10/23 14:22:00 EDT, Weight Dosing Start Date: 04/12/23 Status: Orderedirbesartan 300 mg oral tablet (20 sources)Angiotensin 2 Receptor BlockerStart: 10-17-2021 End: 48-86-6664vxkf 1 tablet by mouth once daily at [...] Wed08/02/24 at 1000, Intravesical administrationStart: 08-12-2023 End: 03-89-1228lnwau 1 dose topically once dailyLidocaine 5 % adhesive patch,medicated Discontinued 1 PATCH TOPICAL Daily August 12, 2023 12: 00am October 11, 2023 2:26pm leave on most painful area for up to 12 hrslosartan potassium 100 mg oral tablet (9 sources)Angiotensin 2 Receptor BlockerStart: 02-06-2022 End: 87-48-8393evxt 1 tablet by mouth once daily at bedtimeLosartan 100 mg tablet Discontinued 100 MG PO Daily at bedtime February 05, 2022 11:00pm February 17, 2022 9:48ammethylPREDNISolone acetate 20 mg/ml injectable suspension (4 sources)CorticosteroidStart: 10-06-2024 End: 60-68-2831htofrrWYCTBWGufjhi Acetate (DEPO-Medrol) injection 40 mgStart: 10-06-2024 End: 87-70-239793 mg, Intra-articular, Once PRN Procedure, Starting on Wed10/06/24 at 1030, For 1 doseomeprazole 40 mg delayed release oral capsule (20 sources)Proton Pump InhibitorStart: 08-22-2014 End: 41-12-2882gkmt 1 capsule by mouth once daily as needed for gastroesophageal reflux diseaseOmeprazole 40 mg Capsule,Delayed Release(Dr/Ec) Discontinued 40 MG PO Daily as needed for HeartburnFebruary 2019 12:00am October 11, 2023 2:26pmoxyCODONE hydrochloride 5 mg oral tablet (11 sources)Opioid AgonistStart: 04-19-2020 End: 08-47-9411kmrk 1 tablet by mouth every four to [...] injection 10 millicurie (1 source)Start: 09-20-2024 End: 71-36-513546 millicurie, intravenous, Once in imaging, Starting on Wed09/20/24 at 1238, For 1 dose, Qbojzaumea59 to 90 minutes prior to imaging unless otherwise indicated.Tc-99m tetrofosmin (Myoview) injection 30 millicurie (1 source)Start: 09-20-2024 End: millicurie, intravenous, Once in imaging, Starting on Wed09/20/24 at 1349, For 1 dose, Mwgbsexrgd08 to 90 minutes prior to imaging unless otherwise indicated. Problems Active Problems Problem ClassificationProblemDateDocumented DateEpisodic/ChronicAcute and unspecified renal failure (1 source)Acute kidney failure, unspecified; Translations: [ACUTE KIDNEY FAILURE UNSPECIFIED]Onset: 62-15-4024QqiwlmpjDgccgi of bladder (20 sources)Malignant tumor of urinary bladder; Translations: [Malignant neoplasm of bladder, unspecified]Onset: 18-21-0149AvmtcurAhvksa of bladder (20 sources)Personal history of malignant neoplasm of bladder; Translations: [History of malignant neoplasm of bladder]Onset: 67-31-1313XyvoaikiYodppf of prostate (20 sources)Malignant tumor of -07-6553NfqncopRouqbpp on above:[facility] other and unspecified primary (11 sources)H/O: malignant tokciwtu24-41-9948BqnxcermJjwhlqa obstructive pulmonary disease and bronchiectasis (17 sources)Chronic obstructive lung disease; Translations: [Chronic obstructive pulmonary disease, unspecified]68-39-9317FipxaonPaiztfv on above: mild Deficiency and other anemia (14 sources)Iron deficiency anemia; Translations: [Iron deficiency anemia, unspecified]Onset: 61-99-2747AxgdeisnXxbjjouyd of lipid metabolism (13 sources)Mixed hyperlipidemia; Translations: [Mixed hyperlipidemia]Onset: 120626-11-1437BxdiksmRszbvvzmqa disorders (20 sources)Gastroesophageal reflux disease; Translations: [Gastro-esophageal reflux disease without esophagitis]Onset: 671913-42-5515EkoqqjvQsfrxnmeq hypertension (20 sources)Hypertensive disorder; Translations: [Essential hypertension]Onset: 349131-24-0031KfcqxzsUunxc and electrolyte disorders (1 source)Hypokalemia; Translations: [HYPOKALEMIA]Onset: 83-30-0948Aefwxokw Genitourinary symptoms and ill-defined conditions (3 sources)Blood in urine; Translations: [Gross hematuria]Onset: 11-04-2021 EpisodicGout and other crystal arthropathies (20 sources)Primary gout; Translations: [Other chondrocalcinosis, right knee] Onset: 616836-04-1610YghslvsGtccjqv on above:lots of inflammation per pt sometimes has to get steroidsImmunizations and screening for infectious disease (4 sources)Infectious disease carrier; Translations: [Carrier of infectious disease, unspecified]66-75-0926WrjzwjfcHdnobejwt of unspecified nature or uncertain behavior (2 sources)Neoplastic disease; Translations: [Neoplasm of unspecified behavior of bone, soft tissue, and skin]27-07-1480XormslbkDzqxgbjkg or stenosis of precerebral arteries (16 sources)Occlusion and stenosis of bilateral carotid arteries; Translations: [Occlusion and stenosis of unspecified carotid artery]Onset: 13-59-4667Hsjyrrp Osteoarthritis (20 sources)Osteoarthritis; Translations: [Osteoarthrosis, unspecified whether generalized or localized, unspecified site]Onset: 464719-87-2571Exjqupg Other acquired deformities (2 sources)Acquired spondylolisthesis; Translations: [Spondylolisthesis, cervical region]EpisodicOther aftercare (3 sources)Taking high risk medication; Translations: [Other group home (current) drug therapy]59-20-0722SzypxjnoZsejv and unspecified benign neoplasm (14 sources)History of polyp of colon; Translations: [Personal history of colonic polyps]Onset: 38-44-5441WwsqobhoNlect circulatory disease (6 sources)Disorder of carotid artery; Translations: [Disorder of arteries and arterioles, unspecified]Onset: 908572-10-8044ZhjcelhBcjfp connective tissue disease (2 sources)Other symptoms and signs involving the nervous systemEpisodicOther connective tissue disease (8 sources)Trochanteric bursitis of left hip; Translations: [Trochanteric bursitis, left hip]37-24-6083SitxskfcLpyku ear and sense organ disorders (15 sources)Sensorineural hearing loss, bilateral; Translations: [Sensorineural hearing loss, bilateral]Onset: 694098-70-7803KaibhpsJlnsj gastrointestinal disorders (14 sources)Altered bowel function; Translations: [Change in bowel habit]Onset: 05-50-4013EdxoeedcJyvmr lower respiratory disease (1 source)Other forms of dyspnea; Translations: [OTHER FORMS OF DYSPNEA]Onset: 86-52-9667UgmovdnvMowox male genital disorders (6 sources)Secondary erectile dysfunction; Translations: [Erectile dysfunction following radical prostatectomy]Onset: 42-27-1488McavtocWxeex male genital disorders (20 sources)Erectile dysfunction following radical prostatectomy; Translations: [Erectile dysfunction followingradical prostatectomy]Onset: ChronicOther nervous system disorders (4 sources)Neuralgia/neuritis - ankle/foot; Translations: [Unspecified mononeuropathy of left lower limb]ChronicOther nervous system disorders (19 sources)Chronic pain; Translations: [Other chronic pain]Onset: 01-12-2023 77-78-4388CkdmuveGhppj nervous system disorders (2 sources)Other chronic painChronicOther non-traumatic joint disorders (10 sources)Hip pain; Translations: [Pain in left hip]17-54-4028AbumwasuKwwbx skin disorders (2 sources)Actinic keratosis; Translations: [Actinic keratosis]02-27-2025 EpisodicPeripheral and visceral atherosclerosis (1 source)Peripheral vascular disease, unspecified; Translations: [PERIPHERAL VASCULAR DISEASE UNS]Onset: 86-20-4415XvddwnlBejvbeuah (except that caused by tuberculosis or sexually transmitted disease) (1 source)Pneumonia, unspecified organism; Translations: [PNEUMONIA UNSPECIFIED ORGANISM]Onset: 77-53-9821LkpxoggiCyrksehrwh (except in labor) (1 source)Sepsis, unspecified organism; Translations: [SEPSIS UNSPECIFIED ORGANISM]Onset: 92-59-7678CenywizaLcmjtluchac; intervertebral disc disorders; other back problems (20 sources)Degeneration of cervical intervertebral disc; Translations: [Other cervical disc degeneration, unspecified cervical region]Onset: 37-39-2530Pvvpeak Unclassified (3 sources)LOW BACK PAIN, UNSPECIFIED; Translations: [LOW BACK PAIN, UNSPECIFIED]Onset: 16-84-5742Bqjzrrmuxggs (2 sources)COUGH, UNSPECIFIED; Translations: [COUGH, UNSPECIFIED]Onset: 23-80-2871Ehzjyhfmezit (1 source)CONTACT W/AND (SUSP) EXPOS COVID-19; Translations: [CONTACT W/AND (SUSP) EXPOS COVID-19]Onset: 10-15-4984Iuewyqtksjma (13 sources)Body mass index 20-24 - -56-1557 Past or Other Problems Problem ClassificationProblemDateDocumented DateEpisodic/ChronicAbdominal hernia (20 sources)Umbilical hernia; Translations: [Umbilical hernia without obstruction or gangrene]Onset: 693312-42-8969FovqjdcuJxibdbja of urinary tract (20 sources)History of calculus of kidney; Translations: [Personal history of urinary calculi]Onset: 88-19-3509AfqepurbFcixuh of prostate (20 sources)Personal history of malignant neoplasm of prostate; Translations: [History of malignant neoplasm ofprostate]Onset: 71-50-5870HaezvmpkI Codes: Fall (1 source)Fall on same level from slipping, tripping and stumbling with subsequent striking against other object, initial encounter; Translations: [FALL SAME LVL SLIP STRK OTH OBJ INT]Onset: 65-44-4950NzivwkaxWorvlxbrafc chest pain (15 sources)Chest discomfort; Translations: [Other chest pain]Onset: 07-17-2024 47-28-7719DxveqruyXgwtw acquired deformities (20 sources)Spondylolisthesis; Translations: [Spondylolisthesis, cervical region]Onset: 083575-89-3733AieuezesGumzrmr on above:Problem List clean-up per request of Phys. 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 Foot pink and dry with immediate capillary refill, 4t pedal and poterior tibial pulses.Other circulatory disease (8 sources)Other specified symptoms and signs involving the circulatory and respiratory systems; Translations:[OTH SPEC SX SIGNS INVLV CIRC RS]Onset: 65-62-0260QptrbggjQnrus circulatory disease (13 sources)Unequal blood pressure in arms; Translations: [Other specified symptoms and signs involving the circulatory and respiratory systems]Onset: 123943-85-7420ImhyhsooEogoq circulatory disease (11 sources)Carotid bruit; Translations: [Other specified symptoms and signs involving the circulatory and respiratory systems]Onset: 312256-36-2914 EpisodicOther connective tissue disease (20 sources)Impingement syndrome of shoulder region; Translations: [Impingement syndrome of unspecified shoulder]Onset: 636688-14-8874JqancdjaOkolt ear and sense organ disorders (15 sources)Bilateral tinnitus; Translations: [Tinnitus, bilateral]Onset: 520033-36-6494RexidmxeUwbmb fractures (4 sources)Multiple fractures of ribs, right side, initial encounter for closed fracture; Translations: [MX FXRIBS RT SIDE INITIAL CLOS FX]Onset: 05-25-2022 EpisodicOther injuries and conditions due to external causes (3 sources)Unspecified injury of thorax, initial encounter; Translations: [UNSPECIFIED INJURY THORAX INITIAL]Onset: 80-38-9212KohrkrrnOcaxx injuries and conditions due to external causes (10 sources)H/O: fracture; Translations: [Personal history of (healed) traumatic fracture]Onset: 507114-57-7697WuroyfeoNsnkm injuries and conditions due to external causes (2 sources)Personal history of (healed) traumatic fracture; Translations: [Personal history of (healed) traumatic fracture]Onset: 12-50-9091FvvicakwSpfkd lower respiratory disease (20 sources)Dyspnea; Translations: [Shortness of breath]Onset: 05-08-2024 27-51-7421WvbphsbnCzpza lower respiratory disease (3 sources)Shortness of breath; Translations: [Shortness of breath]Onset: 06-41-2193TobqtpibRrash nervous system disorders (17 sources)Paresthesia; Translations: [Paresthesia of skin]Onset: 01-12-2023 28-64-7027AcdlniioUlqjz non-traumatic joint disorders (4 sources)Pain in right knee; Translations: [PAIN IN RIGHT KNEE]Onset: 77-78-3728KzygixatWpgbg nutritional; endocrine; and metabolic disorders (11 sources)Overweight in adulthood with body mass index of 25 or more but less than 30; Translations: [Body mass index (BMI) 25.0-25.9, adult]Onset: 05-08-2024 13-06-4706AagftvhvQfjuo nutritional; endocrine; and metabolic disorders (2 sources)Body mass index (BMI) 26.0-26.9, adult; Translations: [Body mass index (BMI) 26.0-26.9, adult]Onset: 25-47-6777EkqjyhjfIlquj nutritional; endocrine; and metabolic disorders (2 sources)Body mass index (BMI) 25.0-25.9, adult; Translations: [Body mass index (BMI) 25.0-25.9, adult]Onset: 03-53-4564PkhdahzdYymoubzvu and history of mental health and substance abuse codes (19 sources)Personal history of nicotine dependence; Translations: [Ex-smoker] Onset: 273099-59-7734JzjvkbawKpkamknmmkf; intervertebral disc disorders; other back problems (20 sources)Chronic low back pain; Translations: [Low back pain, unspecified] Onset: 909427-60-5157QdsmfsivEajvdztictjf (3 sources)Low back pain, unspecified M54.50Unclassified (1 source)LOW BACK PAIN, UNSPECIFIED; Translations: [LOW BACK PAIN, UNSPECIFIED] Onset: 45-80-8274Eivwcrdxgnzm (1 source)COUGH, UNSPECIFIED; Translations: [COUGH, UNSPECIFIED]Onset: 96-03-6462Fpvzfhhqzdqs (9 sources)Onset: 061009-61-2485Iucrttl tract infections (4 sources)Urinary tract infection, site not specified; Translations: [UTI SITE NOT SPECIFIED]Onset: 99-48-0381Vsmonggn Results Test NameValueInterpretationReference RangeFacilityReminderson 03-13-2025 RemindersReminders From: Loretta Simons To: EU - Recalls Whitney; Sent: 03/13/2025 13:55:29 EDT Show up: 05/21/2025 13:55:00 EST Subject: cysto/needs fish/cytol Due Date/Time: 06/18/2025 13:55:00 EST Reminder/Recall Patient is due in August for 3 month cysto/fish/cytol, bt ckNoWVUMedicine Barnesville HospitalRemindersReminders From: Loretta Simons To: EU - Recalls Whitney; Sent: 02/22/2025 11:09:15 EDT Show up: 03/21/2025 11:09:00 EDT Subject: cysto/fish/cytol Due Date/Time: 04/16/2025 11:09:00 EDT Reminder/Recall Patient is due in for 3-4 month cysto/fish/cytol, bt ck Patient sched 05/28/25NormalFishR Adams [facility] Shock Trauma CenterUroVysion Fish and Urine Cyto ([facility])on 27-96-1796KUECKA & UCDiagnosis InfoInvalid Interpretation Code [facility] HospitalComment on above:Result Comment: A:Urine,Bladder Wash:Bladder Wash [...] with cytology and cystoscopy results. * CPT: 52986, 48611. 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 Electronically signed by : on: 03/05/2025 08:20:44Performed By: #### [id number] #### [facility] [address], [place] [address]Al Panel Informationon 19-35-0172ONSA HealthcareType of biopsy: tangential Informed consent: discussed [...] Photo taken Am[facility] of [facility]oc[facility] used: [facility].0 [facility] HealthcareAmbulatory Visit Summaryon 33-50-4197Ptbfzrgpae Visit SummaryAmbulatory Visit Summary MARY DIAZ :1950 [...] ck Where: [address] [place] [address] [place] [address] Medications What How Much When Instructions Unchanged [...] tocreate a cancer (more content not included)...Normal [facility] HospitalAmbulatory Visit SummaryAmbulatory Visit Summary MARY DIAZ [...] ck Where: [address] [place] [address] [place] [address] Medications What How Much When Instructions Unchanged [...] tocreate a cancer (more content not included)...Normal [facility] HospitalUroVysion Fish and Urine Cyto ([facility])on 02-26-2025 [facility] Method of ExtractionBladder Peoples HospitalComment on above:Performed By: #### [id number] #### [facility] [address], [place] [address]GDUA Number of Voqm9Eorrjan Interpretation [facility] HospitalComment on above:Performed By: #### [id number] #### [facility] [address], [place] [address]IFCD SpecimenBladder [facility] Comment on above:Performed By: #### [id number] #### [facility] [address], [place] [address]TKIX Type of ServiceTechnical OnlyMercy Health St. 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 Mitomycin 03/26/22 and 04/20/22. TURBT 01/14/23 - Neg. Chronic inflammation and extensive necrosis. 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 [1] BCG #6 [...] 0.05 09/21/22 - <0.13 09/21/23 - <0.13 ([facility]) 08/16/24 - 0.03 ([facility]) S/p radical prostatectomy 08/2014. [3] 3. History of kidney stones (Z87.442: Personal history of urinary calculi) Has family hx of stones (sister and son). [4] 4. Impotence (N52.31: Erectile dysfunction following radical prostatectomy) Sildenafil 100 mg PRN and 4P injection therapy. [5] Follow-up With When Contact Information DEVONTE NOBLE, Lionel Burgos, URL [address] [place] [address] Additional Instructions: 3 mos for cysto/bt ck [...] polyps Spondylolisthesis of cervi (more content not included)...[facility]'s Medical CenterComment on above:Result Comment: Electronically Signed By: Lionel WHITNEY MD\.br\Date and Time Signed: 02/26/25 08:50 EDT\.br\Electronically Co-Signed By: Lilo Zhoubr\Date and Time Co-Signed: 02/26/25 08:49 EDT Reminderson 23-42-3422WbqclccuyAzytedsql From: Loretta Simons To: EU - Leandro Whitney; Sent: 09/01/2024 15:18:36 EDT Show up: 02/19/2025 15:18:00 EDT Subject: cysto/fish/cytol Due Date/Time: 03/19/2025 15:18:00 EDT Reminder/Recall Patient is due in Apr 2025 cysto/fish/cytol (6 mo) Patient sched for cysto 02/26/25 in [place] office.LGNormWVUMedicine Harrison Community HospitalUrology Office/Clinic Noteon 98-03-1203Nwkpdps Office/Clinic NoteUrology Office/Clinic Note Chief Complaint BCG [...] TURBT 02/17/22 - Path was sent to [facility] for second opinion, 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 Mitomycin 03/26/22 and 04/20/22. TURBT 01/14/23 - Neg. Chronic inflammation and extensive necrosis. 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 [1] Saw Dr. Norberto Leedy 07/19/24 at [facility], recommended BCG #6 to start 2wks later. BCG #6 complete 09/13/24 [facility]. Neg CT AP/Chest scan 09/01/24 [facility]. Cysto 10/24/24 shows no bladder lesions. [...] With When Contact Information [facility] Additional Instructions: For procedure as scheduled. [...] Father. Immunizations Vaccine Da (more content not included)...[facility] Comment on above:Result Comment: Electronically Signed By: LAUREN WOODY PA-C\Date and Time Signed: 01/15/2509:25 EDTReminderson 17-68-6717Phlfkzzkd Reminders From: Loretta Simons To: EU - Recalls Whitney; Sent: 08/17/2024 11:54:59 EST Show up: 11/19/2024 11:54:00 EDT Subject: cysto/fish/cytol Due Date/Time: 12/11/2024 11:54:00 EDT Reminder/Recall Patient is due in January 2025 for 3 month cysto/fish./cytol, bt ck Patient sched 02/26/25 [address] [place] office[address] Medical CenterCB W Auto Differential panel (Bld)on 14-02-2760Uvfvhacwh (Bld) [#/Vol]NINFCleveland ClinicBasophils/100 WBC (Bld)0.2 %[facility] HospitalDifferential cell count method Nom (Bld)AutoCleveland ClinicEosinophils (Bld) [#/Vol]0.09 10*3/uLNINFCleveland ClinicEosinophils/100 WBC (Bld)1.1 %[facility] HospitalErythrocyte distribution width (RBC) [Ratio]14.1 %11.5 - 15.0 %[facility] HospitalHematocrit (Bld) [Volume fraction]38 %Low39.0 - 51.0 %[facility] HospitalHemoglobin (Bld) [Mass/Vol]12.7 g/dLLow13.0 - 17.0 g/dLShelby Memorial HospitalImmature granulocytes (Bld) [#/Vol]0.05 10*3/uLNINFShelby Memorial HospitalImmature granulocytes/100 WBC (Bld)0.6 %[facility] HospitalInterpretation and review of laboratory resultsAbnoalCCleveland Clinic Lymphocytes (Bld) [#/Vol]2.14 10*3/uLShelby Memorial HospitalLymphocytes/100 WBC (Bld) 25.4 %[facility] HospitalH (RBC) [Entitic mass]30.5 pg26.0 - 34.0 pgCFirelands Regional Medical CenterHC (RBC) [Mass/Vol]33.4 g/dL30.5 - 36.0 g/dLHarrison Community HospitalV (RBC) [Entitic vol]91.3 fL80.0 - 100.0 fLCCleveland ClinicMonocytes (Bld) [#/Vol]0.68 10*3/uLNIWilson Street HospitalMonocytes/100 WBC (Bld)8.1 %[facility] Neutrophils (Bld) [#/Vol]5.44 10*3/uLShelby Memorial HospitalNeutrophils/100 WBC (Bld) 64.6 %[facility] HospitalNucleated RBC (Bld) [#/Vol]NINFClevelDetwiler Memorial HospitalNucleated RBC/100 WBC (Bld) [Ratio]0 %/100 WBCShelby Memorial HospitalPlatelet mean volume (Bld) [Entitic vol]9 fL9.0 - 12.7 fLCCleveland ClinicPlatelets (Bld) [#/Vol]257 10*3/uL [facility] HospitalRBC (Bld) [#/Vol]4.16 10*6/uLLow4.20 - 6.00 m/uLShelby Memorial Hospital WBC (Bld) [#/Vol]8.42 10*3/uLSt. Vincent Hospital ClinicBasophils (Bld) [#/Vol]10*3/uLNoal<0.11CMagruder Hospital on above:Order Comment: Specimen Type: BLOOD SPECIMENOrdering Facility: [facility] Address:[address] [place], [place] [address]Performed By: #### [id number] ####[facility] LABCLIA [id number] [place], [place] [address]Bdocsjinz/100 WBC (Bld)0.2 %NormalMercer County Community Hospital on above:Order Comment: Specimen Type: BLOOD SPECIMENOrdering Facility: [facility] Address:[address] [place], [place] [address]Performed By: #### [id number] ####[facility] LABCLIA [id number] [place], [place] [address]Hwekxlkofvgj cell count method Nom (Bld)AutoNormalCMagruder Hospital on above:Order Comment: Specimen Type: BLOOD SPECIMENOrdering Facility: [facility] Address:[address] [place], [place] [address]Performed By: #### [id number] ####[facility] LABCLIA [id number] [place], [place] [address]Cadoavhrioj (Bld) [#/Vol]0.09 10*3/uLNormal<0.46[facility] on above:Order Comment: Specimen Type: BLOOD SPECIMENOrdering Facility: [facility] Address:[address] [place], [place] [address]Performed By: #### [id number] ####[facility] LABCLIA [id number] [place], [place] [address]Jqgvkuyfmza/100 WBC (Bld)1.1 %NormalMercer County Community Hospital on above:Order Comment: Specimen Type: BLOOD SPECIMENOrdering Facility: [facility] Address:[address] [place], [place] [address]Performed By: #### [id number] ####[facility] LABCLIA [id number] [place], [place] [address]Nngdblfoshs distribution width (RBC) [Ratio]14.1 %Normal 11.5-15.0[facility] on above:Order Comment: Specimen Type: BLOOD SPECIMENOrdering Facility: [facility] Address:[address] [place], [place] [address]Performed By: #### [id number] ####[facility] LABIA [id number] [place] [address] Hematocrit (Bld) [Volume fraction]38.0 %Low39.0-51.0[facility] Comment on above:Order Comment: Specimen Type: BLOOD SPECIMENOrdering Facility: [facility] Address:[address] [place] [address] Performed By: #### [id number] ####[facility] LABIA [id number] [place], [place] [address]Ssahtmazmc (Bld) [Mass/Vol]12.7 g/dLLow13.0-17.0[facility] on above:Order Comment: Specimen Type: BLOOD SPECIMENOrdering Facility: [facility] Address:[address] [place], [place] [address]Performed By: #### [id number] ####[facility] LABIA [id number] [place], [place] [address]Ucndxdco granulocytes (Bld) [#/Vol]0.05 10*3/uLNormal <0.10[facility] on above:Order Comment: Specimen Type: BLOOD SPECIMENOrdering Facility: [facility] Address:[address] [place], [place] [address]Performed By: #### 27139-5 ####[facility] LABIA [id number] [place], [place] [address]Rtakgxyv granulocytes/100 WBC (Bld)0.6 %NormalMercer County Community Hospital on above: Order Comment: Specimen Type: BLOOD SPECIMENOrdering Facility: [facility] Address:[address] [place], [place] [address]Performed By: #### [id number]- 8 ####[facility] LABCLIA [id number] [place], [place] [address]Sckrqajtcov (Bld) [#/Vol]2.14 10*3/uLNormal1.00-4.00 [facility] on above:Order Comment: Specimen Type: BLOOD SPECIMENOrdering Facility: [facility] Address:[address] [place], [place] [address]Performed By: #### 00412-3 ####[facility] LABCLIA [id number] [place], [place] [address]Bugstoymawe/100 WBC (Bld)25.4 %NormalMercer County Community Hospital on above:Order Comment: Specimen Type: BLOOD SPECIMENOrdering Facility: [facility] Address:[address] [place], [place] [address]Performed By: #### 92222-1 ####[facility] LABCLIA [id number] [place], [place] [address]OWE (RBC) [Entitic mass]30.5 suPcxgld88.0-34.0[facility] on above:Order Comment: Specimen Type: BLOOD SPECIMENOrdering Facility: [facility] Address:[address] [place], [place] [address]Performed By: #### 28020-0 ####[facility] LABCLIA [id number] [place], [place] [address]YOWG (RBC) [Mass/Vol]33.4 g/aLWjdnya74.5-36.0[facility] on above: Order Comment: Specimen Type: BLOOD SPECIMENOrdering Facility: [facility] Address:[address] [place], [place] [address]Performed By: #### 41889- 8 ####[facility] LABCLIA [id number] [place], [place] [address]ZJG (RBC) [Entitic vol]91.3 mWObxprr88.0-100.0[facility] on above:Order Comment: Specimen Type: BLOOD SPECIMENOrdering Facility: [facility] Address:[address] [place], [place] [address]Performed By: #### 85906-2 ####[facility] LABCLIA [id number] [place], [place] [address]Kweyhdxze (Bld) [#/Vol]0.68 10*3/uLNormal<0.87[facility] on above:Order Comment: Specimen Type: BLOOD SPECIMENOrdering Facility: [facility] Address:[address] [place], [place] [address]Performed By: #### 85487- 8 ####[facility] LABCLIA [id number] [place], [place] [address]Kwgcyhzkf/100 WBC (Bld)8.1 %NormalMercer County Community Hospital on above:Order Comment: Specimen Type: BLOOD SPECIMENOrdering Facility: [facility] Address:[address] [place], [place] [address]Performed By: #### 49598-8 ####[facility] LABIA [id number] [place], [place] [address]Jkhqqjdtsxt (Bld) [#/Vol]5.44 10*3/uLNormal1.45-7.50[facility] on above:Order Comment: Specimen Type: BLOOD SPECIMENOrdering Facility: [facility] Address:[address] [place], [place] [address]Performed By: #### 88587-7 ####[facility] LABCLIA [id number] [place], [place] [address]Varewurpljs/100 WBC (Bld)64.6 %NormalMercer County Community Hospital on above:Order Comment: Specimen Type: BLOOD SPECIMENOrdering Facility: [facility] Address:[address] [place], [place] [address]Performed By: #### 52234-6 ####[facility] LABIA [id number] [place], [place] [address]Nmnbkftyl RBC (Bld) [#/Vol] 10*3/uLNormal<0.01[facility] on above:Order Comment: Specimen Type: BLOOD SPECIMENOrdering Facility: [facility] Address:[address] [place], [place] [address]Performed By: #### 02785-6 ####[facility] LABIA [id number] [place], [place] [address]Evjtjvzae RBC/100 WBC (Bld) [Ratio]0.0 /100 WBCNormal [facility] on above:Order Comment: Specimen Type: BLOOD SPECIMENOrdering Facility: [facility] Address:[address] [place], [place] [address]Performed By: #### 49876-8 ####[facility] LABCLIA [id number] [place], [place] [address]Pjaleflh mean volume (Bld) [Entitic vol]9.0 fLNormal9.0-12.7CMagruder Hospital on above:Order Comment: Specimen Type: BLOOD SPECIMENOrdering Facility: [facility] Address:[address] [place] [address] Performed By: #### 79709-1 ####[facility] LABCLIA [id number] [place], [place] [address]Croveqywb (Bld) [#/Vol]257 10*3/qCDbqisu573-564QuzxsoqpkMercer County Community Hospital on above:Order Comment: Specimen Type: BLOOD SPECIMENOrdering Facility: [facility] Address:[address] [place], [place] [address]Performed By: #### 32661-9 ####[facility] LABCLIA [id number] [place], [place] [address]FUC (Bld) [#/Vol]4.16 10*6/uLLow4.20-6.00[facility] on above:Order Comment: Specimen Type: BLOOD SPECIMENOrdering Facility: [facility] Address:[address] [place], [place] [address]Performed By: #### 17182-9 ####[facility] LABCLIA [id number] [place], [place] [address]CDR (Bld) [#/Vol]8.42 10*3/uL Normal3.70-11.00[facility] on above:Order Comment: Specimen Type: BLOOD SPECIMENOrdering Facility: [facility] Address:[address] [place], [place] [address]Performed By: #### 99405-3 ####[facility] LABIA [id number] [place], [place] [address]PELCFChl 53-07-9906LHREZMNbqmx (SP) Office (HEMAS[place]) MARY DIAZ ([id number]) 1950 [facility] Date Time Provider Department 12/13/24 1:00 PM NORBERTO ANDRADE HEMFELICIANO During your visit today, we recorded the following information about you: Temperature Pulse Respiration Blood pressure 97.7 degrees 74/minute 18/minute 135/80 Weight 84.4 kg Norberto Andrade MD 12/13/2024 2:20 PM Signed PATIENT NAME: Mary Diaz [facility] NO.: [id number] ATTENDING PHYSICIAN: Norberto Andrade MD DATE OF SERVICE: 12/13/[address] 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 Urology recommended induction [...] tablet by mouth at bedtime as needed. erneyoczznx-mpwwpjvun-ilemtktl (TRELEGY ELLIPTA) 100-62.5-25 mcg inhalation powder = [...] Take 100 mg by mouth as needed. akhnjdqinzk-yzxxxuyjc-ajtnrgxb (TRELEGY ELLIPTA) 100-62.5-25 mcg inhalation powder Inhale [...] SURGICAL HISTORY OF Cystourethrosco (more content not included)...NormalMount Carmel [facility] System metabolic 2000 panelOrdered By: Jules Almaraz on 00-20-3750Stbskkp [Mass/Vol]4.5 g/dL3.9 - 4.9 g/dLClune ClinicALP [Catalytic activity/Vol]56 U/L38 - 113 U/LCleveland ClinicALT [Catalytic activity/Vol]16 U/L10 - 54 U/L Clune ClinicAnion gap [Moles/Vol]10 mmol/L8 - 15 mmol/LCleveland ClinicAST [Catalytic activity/Vol]16 U/L14 - 40 U/LCleveland ClinicBilirubin [Mass/Vol]0.4 mg/dL0.2 - 1.3 mg/dLClune ClinicCalcium [Mass/Vol]10.2 mg/dL8.5 - 10.2 mg/dLClune ClinicChloride [Moles/Vol]97 mmol/LLow98 - 107 mmol/LCleveland ClinicCO2 [Moles/Vol]26 mmol/L22 - 30 mmol/LCleveland ClinicCreatinine [Mass/Vol]1.27 mg/dLHigh0.73 - 1.22 mg/dLClune ClinicGFR/1.73 sq M.predicted among non-blacks MDRD (S/P/Bld) [Vol rate/Area]60 mL/min/{1.73_m2}- PINF [facility] on above:Estimated Glomerular Filtration Rate (eGFR) is [...] reflect actual GFR.Glucose [Mass/Vol]93 mg/dL74 - 99 mg/dLLouis Stokes [facility] on above:The [place] Diabetes Association (ADA) provides guidance for cutoff [...] Standards of Medical Care in Diabetes 2016, [place] Diabetes Association. Diabetes Care. 2016.39(Suppl 1). Interpretation and review of laboratory resultsAbnormalCleveland ClinicPotassium [Moles/Vol]4 mmol/L3.7 - 5.1 mmol/LCuniversity hospitals cleveland medical center ClinicProtein [Mass/Vol]7 g/dL6.3 - 8.0 g/dLClune ClinicSodium [Moles/Vol]133 mmol/FKql374 - 144 mmol/L [facility] Memorial HospitalUrea nitrogen [Mass/Vol]16 mg/dL9 - 24 mg/dLSelect Medical Specialty Hospital - Boardman, IncComprehensive metabolic 2000 panelon 84-41-8220Boedhkk [Mass/Vol]4.5 g/dLNormal3.9-4.9CMagruder Hospital on above:Order Comment: Specimen Type: BLOOD SPECIMENOrdering Facility: [facility] Address:[address] [place], [place] [address]Performed By: #### 27923- 8 ####[facility] LABCLIA [id number] [place], [place] [address]LYW [Catalytic activity/Vol]56 U/YIqpkkr40-722BdcedqvfoMercer County Community Hospital on above:Order Comment: Specimen Type: BLOOD SPECIMENOrdering Facility: [facility] Address:[address] [place], [place] [address]Performed By: #### 02151-8 ####[facility] LABCLIA [id number] [place], [place] [address]RMG [Catalytic activity/Vol]16 U/HLsmnak97-62QbgvlysdrMercer County Community Hospital on above:Order Comment: Specimen Type: BLOOD SPECIMENOrdering Facility: [facility] Address:[address] [place], [place] [address]Performed By: #### 47085- 8 ####[facility] LABCLIA [id number] [place], [place] [address]Uxtre gap [Moles/Vol]10 mmol/LNormal8-15[facility] on above:Order Comment: Specimen Type: BLOOD SPECIMENOrdering Facility: [facility] Address:[address] [place], [place] [address]Performed By: #### 50108-4 ####[facility] LABCLIA [id number] [facility] REDMONDJUDITHDIGNITY HEALTH ST. JOSE[facility] WESTG[facility] MEDICAL CENTERRALPHKING CITY, [place] [address]MAU [Catalytic activity/Vol]16 U/EWzwxpm49-14RcmlkigyzMercer County Community Hospital on above:Order Comment: Specimen Type: BLOOD SPECIMENOrdering Facility: [facility] Address:[address] [place], [place] [address]Performed By: #### 11218-7 ####[facility] LABCLIA [id number] [place] [address] Bilirubin [Mass/Vol]0.4 mg/dLNormal0.2-1.3CMagruder Hospital on above:Order Comment: Specimen Type: BLOOD SPECIMENOrdering Facility: [facility] Address:[address] [place], [place] [address]Performed By: #### 62852-5 ####[facility] LABCLIA [id number] [place], [place] [address]Bugurgc [Mass/Vol]10.2 mg/dLNormal8.5-10.2CMagruder Hospital on above:Order Comment: Specimen Type: BLOOD SPECIMENOrdering Facility: [facility] Address:[address] [place], [place] [address]Performed By: #### 84782-2 ####[facility] LABCLIA [id number] [place], [place] [address]Tgavnvdx [Moles/Vol]97 mmol/NOsq51-945JxldtuxgzMercer County Community Hospital on above:Order Comment: Specimen Type: BLOOD SPECIMENOrdering Facility: [facility] Address:[address] [place], [place] [address]Performed By: #### 00428- 8 ####[facility] LABCLIA [id number] [place], [place] [address]JR8 [Moles/Vol]26 mmol/FRmvruq11-53SeivmlgzzMercer County Community Hospital on above:Order Comment: Specimen Type: BLOOD SPECIMENOrdering Facility: [facility] Address:[address] [place], [place] [address]Performed By: #### 23882-0 ####[facility] LABCLIA [id number] [place], [place] [address]Tqyohikmgl [Mass/Vol]1.27 mg/dL High0.73-1.22[facility] on above:Order Comment: Specimen Type: BLOOD SPECIMENOrdering Facility: [facility] Address:[address] [place], [place] [address]Performed By: #### 87888-0 ####[facility] LABCLIA [id number] [place] [address] Creatinine and Glomerular filtration rate.predicted panel (S/P/Bld)60 mL/min/1.73m???Normal>=60[facility] on above:Order Comment: Specimen Type: BLOOD SPECIMENOrdering Facility: [facility] Address:[address] [place], [place] [address]Result Comment: Estimated Glomerular Filtration Rate (eGFR) is [...] not accurately reflect actual GFR.Performed By: #### 60729-2 ####[facility] LABCLIA [id number] [place], [place] [address]Finmyey [Mass/Vol]93 mg/zAZomtmc16-32VrxcmtmphMercer County Community Hospital on above:Order Comment: Specimen Type: BLOOD SPECIMENOrdering Facility: [facility] Address:[address] [place], [place] [address]Result Comment: The [place] Diabetes Association (ADA) provides guidance for cutoff [...] Standards of Medical Care in Diabetes 2016, [place] Diabetes Association. Diabetes Care. 2016.39(Suppl 1).Performed By: #### 45360-0 ####[facility] LABCLIA [id number] [place], [place] [address]Hqtlzsvjm [Moles/Vol]4.0 mmol/LNormal3.7-5.1CMagruder Hospital on above:Order Comment: Specimen Type: BLOOD SPECIMENOrdering Facility: [facility] Address:[address] [place], [place] [address]Performed By: #### 16037-2 ####[facility] LABCLIA [id number] [place], [place] [address]Qivebuf [Mass/Vol]7.0 g/dLNormal6.3-8.0[facility] on above:Order Comment: Specimen Type: BLOOD SPECIMENOrdering Facility: [facility] Address:[address] [place], [place] [address]Performed By: #### 06312- 8 ####[facility] LABCLIA [id number] [place], [place] [address]Qmiteo [Moles/Vol]133 mmol/TNxc766-817ZuilqsseyMercer County Community Hospital on above:Order Comment: Specimen Type: BLOOD SPECIMENOrdering Facility: [facility] Address:[address] [place], [place] [address]Performed By: #### 29701-6 ####[facility] LABCLIA [id number] [place], [place] [address]Ylzp nitrogen [Mass/Vol]16 mg/dLNormal9-24[facility] on above:Order Comment: Specimen Type: BLOOD SPECIMENOrdering Facility: [facility] Address:[address] [place], [place] [address]Performed By: #### 31197-0 ####[facility] LABCLIA [id number] [place], [place] [address]Vseylnxg SerPl-mCncon 41-65-3835Jltpfakh [Mass/Vol]114.0 ng/mDTevxld93.3-565.7CMagruder Hospital on above:Order Comment: Specimen Type: BLOOD SPECIMENOrdering Facility: [facility] Address:[address] [place], [place] [address]Performed By: #### 38117-8, 9, 2275-09, 2284-01 ####[facility] LABCLIA [id number] [place] [address] [place] OF AMERICAFolate SerPl-mCncon 53-11-1716Syvxgn [Mass/Vol]ng/mLNormal>4.7CMagruder Hospital on above:Order Comment: Specimen Type: BLOOD SPECIMENOrdering Facility: [facility] Address:[address] [place], [place] [address]Result Comment: A result of > 20 ng/mL is not necessarily indicative of a pathologic or treatable condition: it reflects a limitation of the test methodology. Assay reference range: 4.8 to 24.2 ng/mL. Suitable for detection of folate deficiency. Reference: Folate III (Folate III) [package insert V 1.0 Latvian]. [facility], [place], [place]: April 2015.Performed By: #### 61646-4, 9, 2275-09, 2284-01 ####[facility] LABCLIA [id number] [place] [address] [place] AMERICAIron and Iron binding capacity panelon 91-13-4734Bbcy [Mass/Vol]70 ug/kLHasblb91-138FdvavobyaOhiohealth O'Bleness Hospital Comment on above:Order Comment: Specimen Type: BLOOD SPECIMENOrdering Facility: [facility] Address:[address] [place] [address] Performed By: #### 33656-5, 2132-02, 2275-09, 2284-01 ####[facility] LABCLIA [id number] [place] [address] [place] AMERICAIron binding capacity [Mass/Vol]338 ug/aAZxjrsz283-866ZodzwktayMercer County Community Hospital on above:Order Comment: Specimen Type: BLOOD SPECIMENOrdering Facility: [facility] Address:[address] [place], [place] [address]Performed By: #### 52282-4, 2132-02, 2275-09, 2284-01 ####[facility] LABIA [id number] [address] STATES OF AMERICAIron/TIBC [Molar ratio]20.7 % Woduzc17.0-57.0[facility] on above:Order Comment: Specimen Type: BLOOD SPECIMENOrdering Facility: [facility] Address:[address] [place], [place] [address]Performed By: #### 36214-0, 2132-02, 2275-09, 2284-01 ####[facility] LABIA [id number] [place] [id number] HOSPITALVit B12 SerPl-[facility] 49-66-1063Bkujbdmfh (Vitamin B12) [Mass/Vol]484 pg/eKVhkasi546-3743EhdiotyicMagruder Hospital on above:Order Comment: Specimen Type: BLOOD SPECIMENOrdering Facility: [facility] Address:[address] [place], [place] [address]Performed By: #### 02725-2, 2132-02, 2275-09, 2284-01 ####[facility] LABIA [id number] [place] [id number] [place] OF AMERICAOffice Visiton 30-80-1669Aavgyz- up [id number] Mary Diaz 1950 M Date Provider Department Center 12/11/2024 ALEXANDREA WAGNER [facility] [place] [facility] Family History Problem Relation Age of Onset Cerebral aneurysm Mother Dementia Father Hypertension Sister Family Status - Relation Status Age at Mother Father Sister Alive Brother Level of Service:[address]395 [place] OFFICE/OP CONSLTJ NEW/EST PT MOD MDM 40 MINUTESNoal Detwiler Memorial HospitalAmbulatory Visit Summaryon 12-05-2024 Ambulatory Visit SummaryAmbulatory Visit [...] LAUREN WOODY PA-C Where: [facility] [address] [facility] [place] [address]- Wednesday 8:30 AM EDT With: Lionel WHITNEY MD Where: [facility] [address] [facility] [place] [address]- You Need to Schedule the Following Appointments Follow Up with LAUREN WOODY PA-C, URL When: In 1 week Where: [address] [place] [address] Medications What How Much When [...] ??? Working where the (more content not included)...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 Mitomycin 03/26/22 and 04/20/22. TURBT 01/14/23 - Neg. Chronic inflammation and extensive necrosis. 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 [1] Saw Dr. Norberto Leedy 07/19/24 at [facility], recommended BCG #6 to start 2wks [...] Urnls Dip Stick Auto w/o Microscopy POC 01922 Orders: BCG, 50 mg, IntraVesical, Once, Stop date 12/05/24 10:26:00 EDT, Routine, Start date 12/05/24 10:26:00 EDT, 12/05/24 10:26:00 EDT Follow-up With When Contact Information AMBREEN HELMS, LAUREN Higginbotham, URL In 1 week [address] [place] [address] Additional Instructions: Patient Education [...] 1-2 times per we (more content not included)...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 Mitomycin 03/26/22 and 04/20/22. TURBT 01/14/23 - Neg. Chronic inflammation and extensive necrosis. 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 [1] Saw Dr. Norberto Leedy 07/19/24 at [facility], recommended BCG #6 to start 2wks [...] LAUREN WOODY PA-C, URL In 1 week [address] [place] [address] Additional Instructions: Patient Education [...] Never Smokeless Tobacco Us (more content not included)...[facility] Rita's Medical CenterComment on above:Result Comment: Electronically Signed [...] LAUREN WOODY PA-C Where: [facility] [address] [facility] [place] [address] Wednesday 10:00 AM EDT With: LAUREN WOODY PA-C Where: [facility] [address] [facility] [place] [address]- Wednesday 8:30 AM EDT With: Lionel WHITNEY MD Where: [facility] [address] [facility] [place] [address]- Medications What How Much When Instructions Unchanged [...] you for choosing us for your care. [facility] Medical CenterMR HIP LEFT WO IV CONTRASTon 96-57-0164AG HIP LEFT WO IV CONTRASTEXAMINATION/TECHNIQUE: MR HIP [...] CALL PT TO SCHEDULEMain OR Preoperative Recordon 24-88-7237Fhdf OR Preoperative RecordMain OR Preoperative Record Holding Area Document Type FTURO Summary Primary Physician: Lionel WHITNEY MD Finalized Date/Time: 10/31/24 16:29:26 Pt. Name: MARY DIAZ Sue Verma/Sex: 1950 Male Med Rec #: [id number] Physician: Lionel WHITNEY MD Financial #: [id number] Pt. Type: O Room/Bed: / Admit/Disch: 10/24/24 [...] Signed By: PAULINA Rene RN, Ruthann 10/31/24 16:29NormalBarberton Citizens Hospital UroVysion Fish and Urine Cyto ([facility])on 55-74-8662HHTEYW & UCDiagnosis Info Invalid Interpretation Berger HospitalComment on above:Result Comment: A:Urine,Urine:Bladder Wash Diagnosis [...] with cytology and cystoscopy results. * CPT: 78334, 66652. Microscopic Notes - Microscopic Notes - Abnormal cells 9p21 deletions: Abnormal cells aneploid events: Total cells analyzed: 132 Hematuria: Gross Description Site ID:A color Yellow fixative Alcohol Received 90 mls of clear yellow fluid with the patient's name and, Urine on the vial. Electronically signed by : on: 10/30/2024 14:51:19Performed By: #### [id number] #### [facility] [address] [place], [place] [address]Yonn OR Intraoperative Recordon 64-74-5942Snou OR Intraoperative RecordMain OR Intraoperative Record IntraOp Document Type FTURO Summary Primary Physician: Lionel WHITNEY MD Finalized Date/Time: 10/24/24 10:25:48 Pt. Name: EMILYMARY/Sex: 1950 Male Med Rec #: [id number] Physician: Lionel WHITNEY MD Financial #: [id number] Pt. Type: O Room/Bed: / Admit/Disch: 10/24/24 [...] Nanci Luna Role Performed Surgeon - Primary Transmissions Systems Operator - Primary Scrub - Primary Time In 10/24/24 09:45:00 10/24/24 09:45:00 10/24/24 09:45:00 Time Out 10/24/24 10:29:00 10/24/24 10:29:00 10/24/24 10:29:00 Procedure CYSTOSCOPY LOCAL(.) CYSTOSCOPY LOCAL(.) CYSTOSCOPY LOCAL(.) Comments Last Modified By: Edgard ZELAYA, EDITHOR, Edgard ZELAYA, EDITHOR, Edgard ZELAYA, EDITHOR, Cheryl 10/24/24 Cheryl 10/24/24 Cheryl 10/24/24 10:23:50 [...] Signed By: PAULINA Rene RN, Ruthann 10/24/24 10:25[facility] Operative Reporton 86-78-8823Pjhskwvsf ReportOperative Report Patient: MARY DIAZ Age: 74 [...] then surveillance cystoscopy in 3 to [address] Rita's Medical CenterComment on above:Result Comment: Electronically Signed By: DEVONTE NOBLE, Lionel Ernandez\Date and Time Signed: 10/24/24 10:31 EDTUroVysion Fish and Urine Cyto ([facility]4 [facility])on 90-01-9517FQBV Method of ExtractionBladder WashNoWVUMedicine Barnesville HospitalComment on above:Performed By: #### [id number] #### [facility] [address] [place], [place] [address]CJRJ Number of Nqiw0Ehowwrh Interpretation Berger HospitalComment on above:Performed By: #### [id number] #### [facility] [address] [place], [place] [address]ILIX SpecimenUrineMercy Health St. Rita's Medical CenterComment on above:Performed By: #### [id number] #### [facility] [address] [place], [place] [address]PNTW Type of ServiceTechnical OnlyMercy Health St. Rita's Medical CenterComment on above:Performed By: #### [id number] #### [facility] [address] [place], [place] [address]Fmnoaokujs Visit Summaryon 74-66-3946Fugzdipxjd Visit Summary Ambulatory Visit Summary MARY DIAZ [...] Urology [address] [place] [phone] Medications What How Much When Instructions Unchanged [...] the bladder and the uret (more content notincluded)...[facility]'s Medical CenterAmbulatory Visit SummaryAmbulatory Visit Summary MARY [...] [facility] [address] [place] [phone] Medications What How Much When Instructions Unchanged [...] the bladder and the uret (more content notincluded)...[facility] Medical CenterUrology Office/Clinic Noteon 79-88-7020Nccrtvb Office/Clinic NoteUrology Office/Clinic Note Chief Complaint f/u [...] states that he completed 6 BCG's at [facility] cancer center in August. 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 Mitomycin 03/26/22 and 04/20/22. TURBT 01/14/23 - Neg. Chronic inflammation and extensive necrosis. 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 [1] Saw Dr. Norberto Andrade 07/19/24 at [facility], recommended BCG #6 to start 2wks later. BCG #6 complete 09/13/24 [facility]. Neg CT AP/Chest scan 09/01/24 F. -Has cysto scheduled 10/24/24 2. History of prostate cancer (Z85.46: Personal history of malignant neoplasm of prostate) PSA: 07/05/20 - 0.05 09/12/21 - 0.05 09/21/22 - <0.13 09/21/23 - <0.13 ([facility]) 08/16/24 - 0.03 ([facility]) S/p radical prostatectomy 08/2014. PSA remains [...] URL [facility] [address] [place] [address] [phone] Additional Instructions: has cysto in October Patient [...] Oral, BID doxazos (more content not included)...NormalFisher Naranjito Medical CenterComment on above:Result Comment: Electronically Signed By: Lionel WHITNEY MD\.br\Date and Time Signed: 10/09/24 11:06 EDT\.br\Electronically Co-Signed By: Lilo Zhou\.br\Date and Time Co-Signed: 10/09/24 11:03 EDTNo Panel Informationon 24-76-8131IlxftfeSUZAN Mehta 10/06/2024 10:34 AM L Inj/Asp: L [...] discussed. Consent was given by the patient. [facility] Heart Perfusion W stress and W radionuclide IV on 43-25-3973Ndfqgb Lexiscan Myoview cardiac perfusion imaging stress test. [...] Carlos Bell 09/20/2024 3:47 PM Dictation workstation: [id number] By: Carlos Bell and Giannuzzi Michael STUDY: MYOCARDIAL PERFUSION STRESS TEST WITH EXERCISE CONVERTED TO LEXISCAN Performing facility: [facility] Provider: Cady Espinosa MD, FACC PCP: Dr. Pascual Monterroso Supervising provider: Rolly Michaels MD, FACC INDICATION: Signs/Symptoms:ABN EKG, chest pressure. ,R07.89 Other chest pain,R06.02 Shortness of breath HISTORY: Gender: M; Age: 74 y/o ; Height: HT 182.9 cm cm; Weight: WT 88.633 kg kg. High Cholesterol; HTN; Chest Pain; SOB; Quit smoking 21 years ago. COMPARISON: No comparison. ACCESSION NUMBER(S): [id number] ORDERING CLINICIAN: CADY ESPINOSA TECHNIQUE: ONE DAY [...] EXERCISE CONVERTED TO LEXISCAN Performing facility: [facility] Provider: Cady Espinosa MD, FACC PCP: Dr. Pascual Monterroso Supervising provider: Rolly Michaels MD, [facility] INDICATION: Signs/Symptoms:ABN EKG, chest pressure. ,R07.89 Other chest pain,R06.02 Shortness of breath HISTORY: Gender: M; Age: 74 y/o ; Height: HT 182.9 cm cm; Weight: WT 88.633 kg kg. High Cholesterol; HTN; Chest Pain; SOB; Quit smoking 21 years ago. COMPARISON: No comparison. ACCESSION NUMBER(S): [id number] ORDERING CLINICIAN: CADY ESPINOSA TECHNIQUE: ONE DAY [...] Carlos Bell 09/20/2024 3:47 PM Dictation workstation: [id number] [facility] Work Phone: Radiology Study observation (narrative)[facility] Work Phone: nm Heart Perfusion W stress and W radionuclide IV Ordered By: Carlos Bell on 68-08-9920WvnugqyasmGrant Hospital Work Phone: NUCLEAR STRESS TESTon [id number] STRESS TEST Interpreted By: Carlos Bell and Giannuzzi Michael STUDY: MYOCARDIAL PERFUSION STRESS TEST WITH EXERCISE CONVERTED TO LEXISCAN Performing facility: [facility] Provider: Cady Espinosa MD, FACC PCP: Dr. Pascual Monterroso Supervising provider: Rolly Michaels MD, FACC INDICATION: Signs/Symptoms:ABN EKG, chest pressure. ,R07.89 Other chest pain,R06.02 Shortness of breath HISTORY: Gender: M; Age: 74 y/o ; Height: HT 182.9 cm cm; Weight: WT 88.633 kg kg. High Cholesterol; HTN; Chest Pain; SOB; Quit smoking 21 years ago. COMPARISON: No comparison. ACCESSION NUMBER(S): [id number] ORDERING CLINICIAN: CADY ESPINOSA TECHNIQUE: ONE DAY [...] Carlos Bell 09/20/2024 3:47 PM Dictation workstation: [id number] Community Hospital CBC W Auto Differential panel (Bld)on 81-80-2408Aokaquqdf (Bld) [#/Vol]0.03 10*3/uLNINFShelby Memorial HospitalBasophils/100 WBC (Bld)0.4 %[facility] Differential cell count method Nom (Bld)AutoCleveland ClinicEosinophils (Bld) [#/Vol]0.13 10*3/uLNINFShelby Memorial HospitalEosinophils/100 WBC (Bld)1.6 %[facility] Memorial HospitalErythrocyte distribution width (RBC) [Ratio]13.2 %11.5 - 15.0 %[facility] Memorial HospitalHematocrit (Bld) [Volume fraction]37.8 %Low39.0 - 51.0 %[facility] Hemoglobin (Bld) [Mass/Vol]12.4 g/dLLow13.0 - 17.0 g/dLShelby Memorial HospitalImmature granulocytes (Bld) [#/Vol]0.03 10*3/uLNINFShelby Memorial HospitalImmature granulocytes/100 WBC (Bld)0.4 %[facility] Memorial HospitalInterpretation and review of laboratory resultsAbnormalCleveland ClinicLymphocytes (Bld) [#/Vol]1.84 10*3/uL [facility] Memorial HospitalLymphocytes/100 WBC (Bld)22.3 %[facility]arrison Community HospitalH (RBC) [Entitic mass]30.6 pg26.0 - 34.0 pgClevelSt. John's HospitalHC (RBC) [Mass/Vol]32.8 g/dL30.5 - 36.0 g/dLHarrison Community HospitalV (RBC) [Entitic vol]93.3 fL80.0 - 100.0 fLCCleveland ClinicMonocytes (Bld) [#/Vol]0.72 10*3/uLNINFShelby Memorial Hospital Monocytes/100 WBC (Bld)8.7 %[facility] Memorial HospitalNeutrophils (Bld) [#/Vol]5.51 10*3/uLShelby Memorial HospitalNeutrophils/100 WBC (Bld)66.6 %[facility] Memorial HospitalNucleated RBC (Bld) [#/Vol]NINFCleveland ClinicNucleated RBC/100 WBC (Bld) [Ratio]0 %/100 WBCShelby Memorial HospitalPlatelet mean volume (Bld) [Entitic vol]9.6 fL9.0 - 12.7 fL [facility] Memorial HospitalPlatelets (Bld) [#/Vol]267 10*3/uLClune ClinicRBC (Bld) [#/Vol]4.05 10*6/uLLow4.20 - 6.00 m/uLCleveland ClinicWBC (Bld) [#/Vol]8.26 10*3/[facility] Children's Medical CenterBasophils (Bld) [#/Vol]0.03 10*3/uLNormal <0.11CMagruder Hospital on above:Order Comment: Specimen Type: BLOOD SPECIMENOrdering Facility: [facility] Address:[address] [place], [place] [address]Performed By: #### 02057-4 ####[facility] LABCLIA [id number] [place] [address] Basophils/100 WBC (Bld)0.4 %[facility] on above: Order Comment: Specimen Type: BLOOD SPECIMENOrdering Facility: [facility] Address:[address] [place], [place] [address]Performed By: #### 96906- 8 ####[facility] LABCLIA [id number] [place], [place] [address]Armqmgbxknjv cell count method Nom (Bld)AutoNormal [facility] on above:Order Comment: Specimen Type: BLOOD SPECIMENOrdering Facility: [facility] Address:[address] [place], [place] [address]Performed By: #### 46330-6 ####[facility] LABCLIA [id number] [place], [place] [address]Cvaanvzzntg (Bld) [#/Vol]0.13 10*3/uLNormal<0.46[facility] on above: Order Comment: Specimen Type: BLOOD SPECIMENOrdering Facility: [facility] Address:[address] [place], [place] [address]Performed By: #### 98046- 8 ####[facility] LABCLIA [id number] [place], [place] [address]Avrafijvcri/100 WBC (Bld)1.6 %NormalMercer County Community Hospital on above:Order Comment: Specimen Type: BLOOD SPECIMENOrdering Facility: [facility] Address:[address] [place], [place] [address]Performed By: #### 08208-7 ####[facility] LABIA [id number] [place], [place] [address]Jolrjpikeji distribution width (RBC) [Ratio]13.2 %Xdwxsh85.5-15.0[facility] on above: Order Comment: Specimen Type: BLOOD SPECIMENOrdering Facility: [facility] Address:[address] [place], [place] [address]Performed By: #### 84704- 8 ####[facility] LABIA [id number] [place], [place] [address]Jdfdqtxktm (Bld) [Volume fraction]37.8 %Low39.0-51.0 [facility] on above:Order Comment: Specimen Type: BLOOD SPECIMENOrdering Facility: [facility] Address:[address] [place], [place] [address]Performed By: #### 15167-7 ####[facility] LABIA [id number] [place], [place] [address]Xawnygliqn (Bld) [Mass/Vol]12.4 g/dLLow13.0-17.0[facility] on above:Order Comment: Specimen Type: BLOOD SPECIMENOrdering Facility: [facility] Address:[address] [place], [place] [address]Performed By: #### 62584- 8 ####[facility] LABIA [id number] [place], [place] [address]Squgakri granulocytes (Bld) [#/Vol]0.03 10*3/uLNormal <0.10[facility] on above:Order Comment: Specimen Type: BLOOD SPECIMENOrdering Facility: [facility] Address:[address] [place], [place] [address]Performed By: #### 04333-7 ####[facility] LABCLIA [id number] [place], [place] [address]Uyuhgnsj granulocytes/100 WBC (Bld)0.4 %NormalMercer County Community Hospital on above: Order Comment: Specimen Type: BLOOD SPECIMENOrdering Facility: [facility] Address:[address] [place], [place] [address]Performed By: #### 26568- 8 ####[facility] LABCLIA [id number] [place], [place] [address]Xxuvgvvpywg (Bld) [#/Vol]1.84 10*3/uLNormal1.00-4.00 [facility] on above:Order Comment: Specimen Type: BLOOD SPECIMENOrdering Facility: [facility] Address:[address] [place], [place] [address]Performed By: #### 43834-5 ####[facility] LABIA [id number] [place], [place] [address]Zpzlqrpyeqh/100 WBC (Bld)22.3 %NormalMercer County Community Hospital on above:Order Comment: Specimen Type: BLOOD SPECIMENOrdering Facility: [facility] Address:[address] [place], [place] [address]Performed By: #### 38388-3 ####[facility] LABCLIA [id number] [place], [place] [address]IJA (RBC) [Entitic mass]30.6 axUqjwqe36.0-34.0[facility] on above:Order Comment: Specimen Type: BLOOD SPECIMENOrdering Facility: [facility] Address:[address] [place], [place] [address]Performed By: #### 43075-1 ####[facility] LABIA [id number] [place], [place] [address]EBJM (RBC) [Mass/Vol]32.8 g/yELlsive30.5-36.0[facility] on above: Order Comment: Specimen Type: BLOOD SPECIMENOrdering Facility: [facility] Address:[address] [place], [place] [address]Performed By: #### 52144- 8 ####[facility] LABCLIA [id number] [place], [place] [address]VQK (RBC) [Entitic vol]93.3 sAGzffxg96.0-100.0[facility] on above:Order Comment: Specimen Type: BLOOD SPECIMENOrdering Facility: [facility] Address:[address] [place], [place] [address]Performed By: #### 07246-9 ####[facility] LABIA [id number] [place], [place] [address]Ijxyoalfu (Bld) [#/Vol]0.72 10*3/uLNormal<0.87[facility] on above:Order Comment: Specimen Type: BLOOD SPECIMENOrdering Facility: [facility] Address:[address] [place], [place] [address]Performed By: #### 42133- 8 ####[facility] LABIA [id number] [place], [place] [address]Kedlfnndg/100 WBC (Bld)8.7 %NormalMercer County Community Hospital on above:Order Comment: Specimen Type: BLOOD SPECIMENOrdering Facility: [facility] Address:[address] [place], [place] [address]Performed By: #### 27197-6 ####[facility] LABCLIA [id number] [place], [place] [address]Xkifcjzofdc (Bld) [#/Vol]5.51 10*3/uLNormal1.45-7.50[facility] on above:Order Comment: Specimen Type: BLOOD SPECIMENOrdering Facility: [facility] Address:[address] [place], [place] [address]Performed By: #### 87720-1 ####[facility] LABCLIA [id number] [place], [place] [address]Gcmamwowyhn/100 WBC (Bld)66.6 %NormalMercer County Community Hospital on above:Order Comment: Specimen Type: BLOOD SPECIMENOrdering Facility: [facility] Address:[address] [place], [place] [address]Performed By: #### 72871-4 ####[facility] LABCLIA [id number] [place], [place] [address]Onjmlkgvt RBC (Bld) [#/Vol] 10*3/uLNormal<0.01[facility] on above:Order Comment: Specimen Type: BLOOD SPECIMENOrdering Facility: [facility] Address:[address] [place], [place] [address]Performed By: #### 67460-5 ####[facility] LABIA [id number] [place], [place] [address]Prqhdapbm RBC/100 WBC (Bld) [Ratio]0.0 /100 WBCNormal [facility] on above:Order Comment: Specimen Type: BLOOD SPECIMENOrdering Facility: [facility] Address:[address] [place], [place] [address]Performed By: #### 81445-7 ####[facility] LABCLIA [id number] [place], [place] [address]Mgiwqmsi mean volume (Bld) [Entitic vol]9.6 fLNormal9.0-12.7CMagruder Hospital on above:Order Comment: Specimen Type: BLOOD SPECIMENOrdering Facility: [facility] Address:[address] [place] [address] Performed By: #### 50409-9 ####[facility] LABIA [id number] [place], [place] [address]Mziuvimlt (Bld) [#/Vol]267 10*3/uWRcgegq669-329EpriorzgaMercer County Community Hospital on above:Order Comment: Specimen Type: BLOOD SPECIMENOrdering Facility: [facility] Address:[address] [place], [place] [address]Bbvzjymzq By: #### 78960-5 ####[facility] LABIA [id number] [place], [place] [address]ZTX (Bld) [#/Vol]4.05 10*6/uLLow4.20-6.00[facility] on above:Order Comment: Specimen Type: BLOOD SPECIMENOrdering Facility: [facility] Address:[address] [place] [address]Offiaxmoe By: #### 42117-6 ####[facility] LABIA [id number] [place], [place] [address]NNH (Bl) [#/Vol]8.26 10*3/uL Normal3.70-11.00[facility] on above:Order Comment: Specimen Type: BLOOD SPECIMENOrdering Facility: [facility] Address:[address] [place] [address]Fqkcujali By: #### 67281-8 ####[facility] LABIA [id number] [place], [place] [address]BJKDGXVbr 92-13-8082DXBSGNPVprnf Visit (HEMASA) MARY DIAZ ([id number]) 1950 M [facility] Date Time Provider Department 09/13/24 2:00 PM BRUNO NURSE ENRIQUE TAY During your visit today, we recorded the following information about you: Suzanna Waters MA 09/13/2024 1:46 PM Signed UA performed as ordered. Suzanna Waters MA Referring Provider: NORBERTO ANDRADE [[id number]] Allergies As of Date: 09/13/2024 Noted Allergy [...] by mouth at bedtime as needed. - ijoqatesgsj-gavzdapxz-dpudtuip (TRELEGY ELLIPTA) 100-62.5-25 mcg inhalation powder = [...] 100 mg by mouth as needed. - vfrcafbqtrm-dkzyjphpq-dvjkauts (TRELEGY ELLIPTA) 100-62.5-25 mcg inhalation powder Inhale [...] 07/26/2024 Encounter Status:Closed by SUZANNA WATERS on 09/13/24[facility] HospitalCNOVSPon [id number] (SP) Office (HEMASA) MARY DIAZ ([id number]) 1950 [facility] Date Time Provider Department 09/13/24 1:00 PM NORBERTO ANDRADE During your visit today, we recorded the following information about you: Temperature Pulse Respiration Blood pressure 97.6 degrees 73/minute 18/minute 119/75 Weight 86.6 kg Norberto Andrade MD 09/13/2024 1:18 PM Signed PATIENT NAME: Mary Diaz [facility] NO.: [id number] ATTENDING PHYSICIAN: Norberto Andrade MD DATE OF SERVICE: 09/13/[address] 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 Urology recommended induction [...] tablet by mouth at bedtime as needed. gcnqiyvgdnt-ukhftcxxr-vypfwcub (TRELEGY ELLIPTA) 100-62.5-25 mcg inhalation powder = [...] Take 100 mg by mouth as needed. fidelvymlii-ioeqstriz-xihtwxux (TRELEGY ELLIPTA) 100-62.5-25 mcg inhalation powder Inhale [...] Hypertension Father Social History (more content not included)...NormalOhiohealth O'Bleness HospitalComprehensive metabolic 2000 panelOrdered By: Violeta Presley on 90-86-0961Hfipnvn [Mass/Vol]4.5 g/dL3.9 - 4.9 g/dLClune ClinicALP [Catalytic activity/Vol]56 U/L38 - 113 U/L Clune ClinicALT [Catalytic activity/Vol]19 U/L10 - 54 U/LCleveland Clinic Anion gap [Moles/Vol]11 mmol/L8 - 15 mmol/LCleveland ClinicAST [Catalytic activity/Vol]16 U/L14 - 40 U/LCleveland ClinicBilirubin [Mass/Vol]0.4 mg/dL0.2 - 1.3 mg/dLClune ClinicCalcium [Mass/Vol]10 mg/dL8.5 - 10.2 mg/dLClune ClinicChloride [Moles/Vol]103 mmol/L98 - 107 mmol/LCleveland ClinicCO2 [Moles/Vol]24 mmol/L22 - 30 mmol/LCleveland ClinicCreatinine [Mass/Vol]1.34 mg/dLHigh0.73 - 1.22 mg/dLClune ClinicGFR/1.73 sq M.predicted among non- blacks MDRD [...] reflect actual GFR.Glucose [Mass/Vol]93 mg/dL74 - 99 mg/dLShelby Memorial HospitalComment on above:The [place] Diabetes Association (ADA) provides guidance for cutoff [...] Standards of Medical Care in Diabetes 2016, [place] Diabetes Association. Diabetes Care. 2016.39(Suppl 1). Interpretation and review of laboratory resultsAbnormalClevelnovant health kernersville medical center ClinicPotassium [Moles/Vol]4.5 mmol/L3.7 - 5.1 mmol/LCuniversity hospitals cleveland medical center ClinicProtein [Mass/Vol]6.6 g/dL 6.3 - 8.0 g/dLMercy Health St. Anne Hospitalodium [Moles/Vol]138 mmol/L136 - 144 mmol/L Shelby Memorial HospitalUrea nitrogen [Mass/Vol]21 mg/dL9 - 24 mg/dLSelect Medical Specialty Hospital - Boardman, IncComprehensive metabolic 2000 panelon 11-48-9385Gmfvjqa [Mass/Vol]4.5 g/dLNormal3.9-4.9CMagruder Hospital on above:Order Comment: Specimen Type: BLOOD SPECIMENOrdering Facility: [facility] Address:[address] [place], [place] [address]Performed By: #### 74074- 8 ####[facility] LABCLIA [id number] [place], [place] [address]JDD [Catalytic activity/Vol]56 U/WYwaqgo22-123ShcvnciigMercer County Community Hospital on above:Order Comment: Specimen Type: BLOOD SPECIMENOrdering Facility: [facility] Address:[address] [place], [place] [address]Performed By: #### 26999-2 ####[facility] LABCLIA [id number] [place], [place] [address]WXC [Catalytic activity/Vol]19 U/UGiepxa79-15QozuhyvvxMercer County Community Hospital on above:Order Comment: Specimen Type: BLOOD SPECIMENOrdering Facility: [facility] Address:[address] [place], [place] [address]Performed By: #### 46564- 8 ####[facility] LABCLIA [id number] [place], [place] [address]Zyftk gap [Moles/Vol]11 mmol/LNormal8-15[facility] on above:Order Comment: Specimen Type: BLOOD SPECIMENOrdering Facility: [facility] Address:[address] [place], [place] [address]Performed By: #### 65343-8 ####[facility] LABCLIA [id number] [place], [place] [address]KFK [Catalytic activity/Vol]16 U/STcvnjg87-62KoztznqrpMercer County Community Hospital on above:Order Comment: Specimen Type: BLOOD SPECIMENOrdering Facility: [facility] Address:[address] [place], [place] [address]Performed By: #### 71284-7 ####[facility] LABCLIA [id number] [place] [address] Bilirubin [Mass/Vol]0.4 mg/dLNormal0.2-1.3CMagruder Hospital on above:Order Comment: Specimen Type: BLOOD SPECIMENOrdering Facility: [facility] Address:[address] [place], [place] [address]Performed By: #### 56151-3 ####[facility] LABCLIA [id number] [place], [place] [address]Mqmkpqw [Mass/Vol]10.0 mg/dLNormal8.5-10.2CMagruder Hospital on above:Order Comment: Specimen Type: BLOOD SPECIMENOrdering Facility: [facility] Address:[address] [place], [place] [address]Performed By: #### 69890-1 ####[facility] LABCLIA [id number] [place], [place] [address]Dragroqj [Moles/Vol]103 mmol/URrpidd18-932NvfvbptfnMercer County Community Hospital on above: Order Comment: Specimen Type: BLOOD SPECIMENOrdering Facility: [facility] Address:[address] [place], [place] [address]Performed By: #### 40596- 8 ####[facility] LABCLIA [id number] [place], [place] [address]GX6 [Moles/Vol]24 mmol/AEspqmk80-41VcwbkzdrhMercer County Community Hospital on above:Order Comment: Specimen Type: BLOOD SPECIMENOrdering Facility: [facility] Address:[address] [place], [place] [address]Performed By: #### 37602-5 ####[facility] LABCLIA [id number] [place], [place] [address]Hdwnykyivq [Mass/Vol]1.34 mg/dL High0.73-1.22[facility] on above:Order Comment: Specimen Type: BLOOD SPECIMENOrdering Facility: [facility] Address:[address] [place], [place] [address]Performed By: #### 18879-3 ####[facility] LABCLIA [id number] [place] [address] Creatinine and Glomerular filtration rate.predicted panel (S/P/Bld)56 mL/min/1.73m???Low>=60[facility] on above:Order Comment: Specimen Type: BLOOD SPECIMENOrdering Facility: [facility] Address:[address] [place], [place] [address]Result Comment: Estimated Glomerular Filtration Rate (eGFR) is calculated using the 2020 CKD-EPI creatinine equation. This equation utilizes serum creatinine, sex, and age as parameters. The creatinine assay has traceable calibration to isotope dilution-mass spectrometry. Refer to KDIGO guidelines for clinical interpretation. In patients with unstable renal function, e.g. those with acute kidney injury, the eGFR may not accurately reflect actual GFR.Performed By: #### 90068-5 ####[facility] LABCLIA [id number] [place] [address] Glucose [Mass/Vol]93 mg/xKDmoipk44-49QxqfzptdmMercer County Community Hospital on above: Order Comment: Specimen Type: BLOOD SPECIMENOrdering Facility: [facility] Address:[address] [place], [place] [address]Result Comment: The [place] Diabetes Association (ADA) provides guidance for cutoff [...] Standards of Medical Care in Diabetes 2016, [place] Diabetes Association. Diabetes Care. 2016.39(Suppl 1).Performed By: #### 17453-6 ####[facility] LABCLIA [id number] [place], [place] [address]Tbufongio [Moles/Vol]4.5 mmol/LNormal3.7-5.1CMagruder Hospital on above:Order Comment: Specimen Type: BLOOD SPECIMENOrdering Facility: [facility] Address:[address] [place], [place] [address]Performed By: #### 39420-1 ####[facility] LABCLIA [id number] [place], [place] [address]Nbtrsfu [Mass/Vol]6.6 g/dLNormal6.3-8.0[facility] on above:Order Comment: Specimen Type: BLOOD SPECIMENOrdering Facility: [facility] Address:[address] [place], [place] [address]Performed By: #### 60934- 8 ####[facility] LABCLIA [id number] [place], [place] [address]Mckqii [Moles/Vol]138 mmol/VXoanft335-701HnbwtbjcqMercer County Community Hospital on above:Order Comment: Specimen Type: BLOOD SPECIMENOrdering Facility: [facility] Address:[address] [place], [place] [address]Performed By: #### 41761-3 ####[facility] LABCLIA [id number] [place], [place] [address]Ycfc nitrogen [Mass/Vol]21 mg/dLNormal9-24[facility] on above:Order Comment: Specimen Type: BLOOD SPECIMENOrdering Facility: [facility] Address:[facility] [place] [id number] By: #### [id number] ####[facility] LABCLIA [id number] [place], [place] [address]WJ ABD/PEL W IVCONon [id number] ABD/PEL W IVCON* * *Final Report* * * DATE OF EXAM: Sep 01 2024 3:07PM [facility] 0530 - CT ABD/PEL W [...] any questions regarding this interpretation, please call [phone]. If you are unable to reach us at the number above, please feel free to contact [facility] eRadiology at [phone]. [id number] CHEST W IVCONon [id number] CHEST W IVCON* * *Final Report* * * DATE OF EXAM: Sep 01 2024 3:07PM [facility] 0539 - CT CHEST W [...] any questions regarding this interpretation, please call [phone]. If you are unable to reach us at the number above, please feel free to contact [facility] eRadiology at [phone]. [id number]_[id number] O'Bleness HospitalReminderson 09-01-2024 RemindersReminders From: Loretta Simons To: EU - Recalls Whitney; Sent: 04/13/2024 11:42:40 EDT Show up: 08/19/2024 11:42:00 EST Subject: Cysto/Needs FISH/cytol Due Date/Time: 09/11/2024 11:42:00 EDT Reminder/Recall Patient is due in October 2024 for 6 month cysto/fish/cytol, bt ck Spoke to ptaustyn for 10/24/24 at [facility] HospitalCNNURSE on 35-61-3719OFLKZGIQoxds Visit (HEMASA) MARY DIAZ ([id number]) 1950 M [place] Date Time Provider Department 08/30/24 2:30 PM BRUNO NURSE ENRIQUE TAY During your visit today, we recorded the following information about you: Suzanna Waters MA 08/30/2024 1:24 PM Signed UA performed as ordered. Suzanna Waters MA Referring Provider: NORBERTO ANDRADE [[id number]] Allergies As of Date: 08/30/2024 Noted Allergy Reaction CODEINE 03/30/2017 2 - Rash Comments: Agitation, Doesn't work Date Reviewed: 08/30/2024 Reviewed by: Alice Pearce, RN - Fully Assessed Primary Visit Diagnosis:UTI symptoms [R39.9] Prescriptions as of 08/30/2024 - HYDROcodone-acetaminophen (NORCO) 5-325 mg per tablet Take 1 tablet by mouth at bedtime as needed. - kryptamejwc-fbppiqjfz-viwbutom (TRELEGY ELLIPTA) 100-62.5-25 mcg inhalation powder = [...] 100 mg by mouth as needed. - dmbhoxjnznv-pfonoaxcf-uucertlx (TRELEGY ELLIPTA) 100-62.5-25 mcg inhalation powder Inhale [...] 07/26/2024 Encounter Status:Closed by SUZANNA WATERS on 08/30/24ProMedica Defiance Regional HospitalCNCarsonHASKELL COUNTY COMMUNITY HOSPITAL – STIGLERon 79-81-9646LZLSVRYXziht Visit (HEMASA) MARY DIAZ ([id number]) 1950 [facility] Date Time Provider Department 08/23/24 2:00 PM BRUNO NURSE ENRIQUE TAY During your visit today, we recorded the following information about you: Santosh Del Rio MA 08/23/2024 1:29 PM Signed UA performed as ordered. Santosh Del Rio MA Referring Provider: NORBERTO ANDRADE [[id number]] Allergies As of Date: 08/23/2024 Noted Allergy Reaction CODEINE 03/30/2017 2 - Rash Comments: Agitation, Doesn't work Date Reviewed: 08/16/2024 Reviewed by: Gama Be MA - Fully Assessed Primary Visit Diagnosis:High risk medication use [Z79.899] Order(s):UA DIP, URINE (POC) [[id number]] Order #: [id number]. #:[id number] Prescriptions as of 08/23/2024 - HYDROcodone-acetaminophen (NORCO) 5-325 mg per tablet Take 1 tablet by mouth at bedtime as needed. - xdteoowtywp-vwzllnixr-qmbttxue (TRELEGY ELLIPTA) 100-62.5-25 mcg inhalation powder = [...] 100 mg by mouth as needed. - boiolxjumsn-znzijvfii-nnuovqeh (TRELEGY ELLIPTA) 100-62.5-25 mcg inhalation powder Inhale 1 Puff as instructed once daily. Problem List As Of Date 08/23/2024 Noted Resolved Bladder cancer (HCC) [C67.9] 07/26/2024 Encounter Status:Closed by SANTOSH DEL RIO on 08/23/24NormalCpeoples hospitaland Atrium Health MercyUA DIP, URINE (POC)on 99-28-4870DWKDQZHDD UA (POCT)NegativeNegative [facility] HospitalCLARITY UA (POCT)ClearShelby Memorial HospitalCOLOR UA (POCT)Yellow [facility] HospitalGLUCOSE UA (POCT)NegativeNegative mg/dLShelby Memorial Hospital Hemoglobin Ql (U)ModerateAbnormalNegativeShelby Memorial HospitalInterpretation and review of laboratory resultsAbnormalCleveland ClinicKETONE UA (POCT)Negative Negative mg/dLShelby Memorial HospitalLEUKOCYTES UA (POCT)SmallAbnormalNegativeShelby Memorial HospitalNITRITE UA (POCT)NegativeNegativeShelby Memorial HospitalPH UA (POCT)64.5 - 8.0 [facility] HospitalProtein Ql (U)NegativeNegative mg/dLMercy Health St. Anne HospitalPECIFIC GRAVITY UA (POCT)>=1.0301.005 - 1.030Shelby Memorial HospitalUROBILINOGEN UA (POCT)0.2 Normal E.U./dLShelby Memorial HospitalLocation:[facility], [address] [place] [address] , [place], [place], [address]KCRDBCGPISUMMA [facility]ALTH [facility] POINT OF CAREShelby Memorial Hospital Reminderson 10-83-1430JjweccawwYunsqqsdi From: Loretta Simons To: EU - Recalls Whitney; Sent: 07/12/2024 13:52:33 EST Show up: 08/07/2024 13:52:00 EST Subject: cysto after BCG tx Due Date/Time: 08/18/2024 13:52:00 EST Reminder/Recall Patient will need cysto sched 1 month after BCG tx in August 2024 Spoke to Dorota at [facility]. Pt sched for BCG tx 08/02/24- 09/13/24 last tx. Pt will get Cysto in september.LG Spoke to pt sched for 08/24/24 at [facility].LG October 24, 2024 not August.LGNormalMercy Health Urbana Hospital W Auto Differential panel (Bld)on 61-96-1972Jdlwifsgi (Bld) [#/Vol]0.04 10*3/uLNormal<0.11CMagruder Hospital on above:Order Comment: Specimen Type: BLOOD SPECIMENOrdering Facility: [facility] Address:[address] [place], [place] [address]Performed By: #### 90158-7 ####[facility] LABCLIA [id number] [place], [place] [address]Mtmgazbaa/100 WBC (Bld)0.4 %NormalMercer County Community Hospital on above:Order Comment: Specimen Type: BLOOD SPECIMENOrdering Facility: [facility] Address:[address] [place], [place] [address]Performed By: #### 61066-2 ####[facility] LABCLIA [id number] [place], [place] [address]Gguzpadvdphx cell count method Nom (Bld)AutoNormal [facility] on above:Order Comment: Specimen Type: BLOOD SPECIMENOrdering Facility: [facility] Address:[address] [place], [place] [address]Performed By: #### 21347-1 ####[facility] LABIA [id number] [place], [place] [address]Frzawxudamp (Bld) [#/Vol]0.10 10*3/uLNormal<0.46[facility] on above: Order Comment: Specimen Type: BLOOD SPECIMENOrdering Facility: [facility] Address:[address] [place], [place] [address]Performed By: #### 18726- 8 ####[facility] LABCLIA [id number] [place], [place] [address]Kgfrnnldhao/100 WBC (Bld)0.9 %NormalMercer County Community Hospital on above:Order Comment: Specimen Type: BLOOD SPECIMENOrdering Facility: [facility] Address:[address] [place], [place] [address]Performed By: #### 59260-8 ####[facility] LABCLIA [id number] [place], [place] [address]Klavidrsvrr distribution width (RBC) [Ratio]12.8 %Euizxu04.5-15.0[facility] on above: Order Comment: Specimen Type: BLOOD SPECIMENOrdering Facility: [facility] Address:[address] [place], [place] [address]Performed By: #### 87444- 8 ####[facility] LABCLIA [id number] [place], [place] [address]Wxivfcwxkq (Bld) [Volume fraction]39.7 %Udktrw58.0-51.0 [facility] on above:Order Comment: Specimen Type: BLOOD SPECIMENOrdering Facility: [facility] Address:[address] [place], [place] [address]Performed By: #### 96263-6 ####[facility] LABCLIA [id number] [place], [place] [address]Ixohxdbmko (Bld) [Mass/Vol]13.0 g/iEZqtgfn03.0-17.0[facility] on above: Order Comment: Specimen Type: BLOOD SPECIMENOrdering Facility: [facility] Address:[address] [place], [place] [address]Performed By: #### 67888- 8 ####[facility] LABCLIA [id number] [place], [place] [address]Mjnmcoij granulocytes (Bld) [#/Vol]0.12 10*3/uLHigh<0.10 [facility] on above:Order Comment: Specimen Type: BLOOD SPECIMENOrdering Facility: [facility] Address:[address] [place], [place] [address]Performed By: #### 72913-9 ####[facility] LABCLIA [id number] [place], [place] [address]Lgvhcdua granulocytes/100 WBC (Bld)1.1 %NormalMercer County Community Hospital on above: Order Comment: Specimen Type: BLOOD SPECIMENOrdering Facility: [facility] Address:[address] [place], [place] [address]Performed By: #### 94253- 8 ####[facility] LABIA [id number] [place], [place] [address]Jncginpwsdq (Bld) [#/Vol]1.55 10*3/uLNormal1.00-4.00 [facility] on above:Order Comment: Specimen Type: BLOOD SPECIMENOrdering Facility: [facility] Address:[address] [place], [place] [address]Performed By: #### 10885-6 ####[facility] LABIA [id number] [place], [place] [address]Blktvvowtcj/100 WBC (Bld)14.2 %NormalMercer County Community Hospital on above:Order Comment: Specimen Type: BLOOD SPECIMENOrdering Facility: [facility] Address:[address] [place], [place] [address]Performed By: #### 57437-5 ####[facility] LABIA [id number] [place], [place] [address]ACM (RBC) [Entitic mass]30.8 ukZvezbq67.0-34.0[facility] on above:Order Comment: Specimen Type: BLOOD SPECIMENOrdering Facility: [facility] Address:[address] [place], [place] [address]Performed By: #### 18365-2 ####[facility] LABCLIA [id number] [place], [place] [address]YTGJ (RBC) [Mass/Vol]32.7 g/zMSazazj81.5-36.0[facility] on above: Order Comment: Specimen Type: BLOOD SPECIMENOrdering Facility: [facility] Address:[address] [place], [place] [address]Performed By: #### 59633- 8 ####[facility] LABCLIA [id number] [place], [place] [address]GSO (RBC) [Entitic vol]94.1 kQCnjcpi68.0-100.0[facility] on above:Order Comment: Specimen Type: BLOOD SPECIMENOrdering Facility: [facility] Address:[address] [place], [place] [address]Performed By: #### 11801-6 ####[facility] LABIA [id number] [place], [place] [address]Ildvencbg (Bld) [#/Vol]0.96 10*3/uLHigh<0.87[facility] on above:Order Comment: Specimen Type: BLOOD SPECIMENOrdering Facility: [facility] Address:[address] [place], [place] [address]Performed By: #### 20686- 8 ####[facility] LABCLIA [id number] [place], [place] [address]Giikywlxv/100 WBC (Bld)8.8 %NormalMercer County Community Hospital on above:Order Comment: Specimen Type: BLOOD SPECIMENOrdering Facility: [facility] Address:[address] [place], [place] [address]Performed By: #### 82070-9 ####[facility] LABCLIA [id number] [place], [place] [address]Qjjrknboplj (Bld) [#/Vol]8.15 10*3/uLHigh1.45-7.50[facility] on above:Order Comment: Specimen Type: BLOOD SPECIMENOrdering Facility: [facility] Address:[address] [place], [place] [address]Performed By: #### 22666-3 ####[facility] LABCLIA [id number] [place], [place] [address]Bgriphiygte/100 WBC (Bld)74.6 %NormalMercer County Community Hospital on above:Order Comment: Specimen Type: BLOOD SPECIMENOrdering Facility: [facility] Address:[address] [place], [place] [address]Performed By: #### 42507-4 ####[facility] LABIA [id number] [place], [place] [address]Ggqzxfsun RBC (Bld) [#/Vol] 10*3/uLNormal<0.01[facility] on above:Order Comment: Specimen Type: BLOOD SPECIMENOrdering Facility: [facility] Address:[address] [place], [place] [address]Performed By: #### 41039-1 ####[facility] LABCLIA [id number] [place], [place] [address]Hqvcobaqc RBC/100 WBC (Bld) [Ratio]0.0 /100 WBCNormal [facility] on above:Order Comment: Specimen Type: BLOOD SPECIMENOrdering Facility: [facility] Address:[address] [place], [place] [address]Performed By: #### 50140-6 ####[facility] LABIA [id number] [place], [place] [address]Espmtoan mean volume (Bld) [Entitic vol]9.7 fLNormal9.0-12.7CMagruder Hospital on above:Order Comment: Specimen Type: BLOOD SPECIMENOrdering Facility: [facility] Address:[address] [place], [place] [address] Performed By: #### 29746-7 ####[facility] LABCLIA [id number] [place], [place] [address]Wgzxaqfww (Bld) [#/Vol]311 10*3/wXHxnsom584-824VcptuzjmlMercer County Community Hospital on above:Order Comment: Specimen Type: BLOOD SPECIMENOrdering Facility: [facility] Address:[address] [place], [place] [address]Performed By: #### 65248-8 ####[facility] LABIA [id number] [place], [place] [address]TBD (d) [#/Vol]4.22 10*6/uLNormal4.20-6.00[facility] on above:Order Comment: Specimen Type: BLOOD SPECIMENOrdering Facility: [facility] Address:[address] [place], [place] [address]Performed By: #### 28443-5 ####[facility] LABIA [id number] [place], [place] [address]TEU ([facility]) [#/Vol]10.92 10*3/uLNormal3.70-11.00[facility] on above: Order Comment: Specimen Type: BLOOD SPECIMENOrdering Facility: [facility] Address:[address] [place], [place] [address]Performed By: #### 05684- 8 ####[facility] LABIA [id number] [place], [place] [address]NYBSNIBbb 41-92-5116AMMVHQDComra Visit (HEMASA) EMILYMARY ([id number]) 1950 M [facility] Date Time Provider Department 08/16/24 2:15 PM BRUNO NURSE ENRIQUE TAY During your visit today, we recorded the following information about you: Cydney Honeycutt MA 08/16/2024 1:53 PM Signed Back office UA test performed. Results entered in [employer] and doctor notified. Cydney Honeycutt MA Referring Provider: NORBERTO ANDRADE [[id number]] Allergies As of Date: 08/16/2024 Noted Allergy Reaction CODEINE 03/30/2017 2 - Rash Comments: Agitation, Doesn't work Date Reviewed: 08/16/2024 Reviewed by: Gama Be MA - Fully Assessed Primary Visit Diagnosis:High risk medication use [Z79.899] Order(s):UA DIP, URINE (POC) [[id number]] Order #: [id number]. #:[id number] Prescriptions as of 08/16/2024 - HYDROcodone-acetaminophen (NORCO) 5-325 mg per tablet Take 1 tablet by mouth at bedtime as needed. - tylwszvrvgp-erdtquclb-jontbnwz (TRELEGY ELLIPTA) 100-62.5-25 mcg inhalation powder = [...] 100 mg by mouth as needed. - cahbvrhoplf-tfestnfmg-tcdkagne (TRELEGY ELLIPTA) 100-62.5-25 mcg inhalation powder Inhale [...] [C67.9] 07/26/2024 Encounter Status:Closed by HONEYCUTTSeptember on 08/16/24ProMedica Defiance Regional HospitalCNOVSPon 62-65-1192PQCTUNHyaaz (SP) Office (HEMASA) MARY DIAZ ([id number]) 1950 [facility] Date Time Provider Department 08/16/24 1:00 PM NORBERTO ANDRADE During your visit today, we recorded the following information about you: Temperature Pulse Respiration Blood pressure 98.2 degrees 86/minute 16/minute 148/83 Weight 87.5 kg Norberto Andrade MD 08/16/2024 1:29 PM Signed PATIENT NAME: Mary Diaz CLINIC NO.: [id number] ATTENDING PHYSICIAN: Norberto Andrade MD DATE OF SERVICE: 08/16/[address] 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 Urology recommended induction [...] Take 100 mg by mouth as needed. fpnmbbtgeha-udquxjtmr-okgbqaws (TRELEGY ELLIPTA) 100-62.5-25 mcg inhalation powder Inhale [...] PERFORMANCE STATUS: 0- Fully (more content not included)...NormalOhiohealth O'Bleness Hospital Comprehensive metabolic 2000 panelon 80-74-4367Mpmzcae [Mass/Vol]4.5 g/dLNormal 3.9-4.9CMagruder Hospital on above:Order Comment: Specimen Type: BLOOD SPECIMENOrdering Facility: [facility] Address:[address] [place], [place] [address]Performed By: #### 71192-0 ####[facility] LABCLIA [id number] [place] [address] [place] AMERICAALP [Catalytic activity/Vol]76 U/AIthyyf28-617FnshutasiMercer County Community Hospital on above:Order Comment: Specimen Type: BLOOD SPECIMENOrdering Facility: [facility] Address:[address] [place], [place] [address]Performed By: #### 64930-4 ####[facility] LABCLIA [id number] [place] [address] [place] ALT [Catalytic activity/Vol]21 U/VGjtpvj58-27QvgrctlvpMercer County Community Hospital on above:Order Comment: Specimen Type: BLOOD SPECIMENOrdering Facility: [facility] Address:[address] [place] [address] Performed By: #### 70106-2 ####[facility] LABCLIA [id number] [place] [address] [place] Anion gap [Moles/Vol]13 mmol/LNormal8-15[facility] on above:Order Comment: Specimen Type: BLOOD SPECIMENOrdering Facility: [facility] Address:[address] [place], [place] [address]Performed By: #### 56946-1 ####[facility] LABCLIA [id number] [place] [id number] [place] AMERICAAST [Catalytic activity/Vol]20 U/FLiotdp78-35IvywjbhqnMercer County Community Hospital on above:Order Comment: Specimen Type: BLOOD SPECIMENOrdering Facility: [facility] Address:[address] [place], [place] [address]Performed By: #### 27455- 8 ####[facility] LABCLIA [id number] [address] [address] [place] AMERICABilirubin [Mass/Vol]0.3 mg/dL Normal0.2-1.3CMagruder Hospital on above:Order Comment: Specimen Type: BLOOD SPECIMENOrdering Facility: [facility] Address:[address] [place], [place] [address]Performed By: #### 60299-4 ####[facility] LABIA [id number] [place] [address] [place] AMERICACalcium [Mass/Vol]9.7 mg/dLNormal8.5-10.2CMagruder Hospital on above:Order Comment: Specimen Type: BLOOD SPECIMENOrdering Facility: [facility] Address:[address] [place], [place] [address]Performed By: #### 84211-8 ####[facility] LABCLIA [id number] [address] [address] [place] AMERICAChloride [Moles/Vol]102 mmol/ASaqtjs31-402QozkmfsiqOhiohealth O'Bleness Hospital Comment on above:Order Comment: Specimen Type: BLOOD SPECIMENOrdering Facility: [facility] Address:[address] [place] [address] Performed By: #### 44357-4 ####[facility] LABIA [id number] [address] [address] [place] CO2 [Moles/Vol]24 mmol/JBotnnt58-70VvuyibmcbMercer County Community Hospital on above: Order Comment: Specimen Type: BLOOD SPECIMENOrdering Facility: [facility] Address:[address] [place], [place] [address]Performed By: #### 71150- 8 ####[facility] LABIA [id number] [facility] [id number] [place] [address] [place] AMERICACreatinine [Mass/Vol]1.45 mg/dL High0.73-1.22[facility] on above:Order Comment: Specimen Type: BLOOD SPECIMENOrdering Facility: [facility] Address:[address] [place], [place] [address]Performed By: #### 24474-9 ####[facility] LABIA [id number] [address] [address] [place] AMERICACreatinine and Glomerular filtration rate.predicted panel (S/P/Bld)51 mL/min/1.73m???Low>=60[facility] on above:Order Comment: Specimen Type: BLOOD SPECIMENOrdering Facility: [facility] Address:[address] [place], [place] [address]Result Comment: Estimated Glomerular Filtration Rate (eGFR) is [...] not accurately reflect actual GFR.Performed By: #### 81632-9 ####[facility] LABIA [id number] [address] [address] [place] AMERICAGlucose [Mass/Vol]84 mg/dLNormal 74-99[facility] on above:Order Comment: Specimen Type: BLOOD SPECIMENOrdering Facility: [facility] Address:[address] [place], [place] [address]Result Comment: The [place] Diabetes Association (ADA) provides guidance for cutoff [...] Standards of Medical Care in Diabetes 2016, [place] [employer] Association. Diabetes Care. 2016.39(Suppl 1).Performed By: #### 17992-2 ####[facility] LABIA [id number] [address] STATES OF BELLEVUE HOSPITALPotassium [Moles/Vol]5.2 mmol/L High3.7-5.1CMagruder Hospital on above:Order Comment: Specimen Type: BLOOD SPECIMENOrdering Facility: [facility] Address:[address] [place], [place] [address]Performed By: #### 15830-5 ####[facility] LABBRIGHTLOOK [facility] [id number] [address] STATES OF AMERICAProtein [Mass/Vol]6.8 g/dLNormal6.3-8.0[facility] on above:Order Comment: Specimen Type: BLOOD SPECIMENOrdering Facility: [facility] Address:[address] [place], [place] [address]Performed By: #### 12694-7 ####[facility] LABIA [id number] [address] [place] Sodium [Moles/Vol]139 mmol/AItxuzg562-771TbeurrzjiMercer County Community Hospital on above:Order Comment: Specimen Type: BLOOD SPECIMENOrdering Facility: [facility] Address:[address] [place], [place] [address]Performed By: #### 62530-5 ####[facility] LABIA [id number] [address] STATES OF BELLEVUE HOSPITALUrea nitrogen [Mass/Vol]24 mg/dLNormal9-24[facility] on above:Order Comment: Specimen Type: BLOOD SPECIMENOrdering Facility: [facility] Address:[address] [place], [place] [address]Performed By: #### 71703- 8 ####[facility] LABIA [id number] [facility] [id number] [place] [address] [place] BELLEVUE HOSPITALPSA SerPl-mCncon 08-16-2024 Prostate specific Ag [Mass/Vol]0.03 ng/mLNormal<2.60[facility] Comment on above:Order Comment: Specimen Type: BLOOD SPECIMENOrdering Facility: [facility] Address:[address] [place], [place] [address]Result Comment: Total PSA test methodology used is the Electrochemiluminescence Immunoassay by [employer]. Total PSA values by differing methodologies cannot be interchanged.Performed By: #### 2857-1 ####[facility] LABIA [id number] [place] [address] [place] AMERICAUA DIP, URINE (POC)on 49-82-4052HEJUXKBIF UA (POCT)Negative NegativeShelby Memorial HospitalCLARITY UA (POCT)ClearShelby Memorial HospitalCOLOR UA (POCT) YellowShelby Memorial HospitalGLUCOSE UA (POCT)NegativeNegative mg/dLShelby Memorial Hospital Hemoglobin Ql (U)NegativeNegativeShelby Memorial HospitalInterpretation and review of laboratory resultsAbnormalCleveland ClinicKETONE UA (POCT)NegativeNegative mg/dL [facility] HospitalLEUKOCYTES UA (POCT)TraceAbnormalNegativeShelby Memorial HospitalNITRITE UA (POCT)NegativeNegativeShelby Memorial HospitalPH UA (POCT)5.54.5 - 8.0Shelby Memorial HospitalProtein Ql (U)NegativeNegative mg/dLMercy Health St. Anne HospitalPECIFIC GRAVITY UA (POCT)1.021.005 - 1.030Shelby Memorial HospitalUROBILINOGEN UA (POCT)0.2Normal E.U./dL [facility] HospitalLocation:[facility], [address] [place] [address] , [place], [place], [address]JUBVXEJBJSUMMA HEALTH [facility] POINT OF CAREShelby Memorial HospitalCNNURSEon 08-09-2024 CNNURSENurse Visit (HEMASA) MARY DIAZ ([id number]) 1950 M [place] Date Time Provider Department 08/09/24 2:00 PM BRUNO NURSE ENRIQUE TAY During your visit today, we recorded the following information about you: Cydney Honeycutt MA 08/09/2024 1:50 PM Signed Back office UA test performed. Results entered in [employer] and doctor notified. Cydney Honeycutt MA Referring Provider: NORBERTO ANDRADE [[id number]] Allergies As of Date: 08/09/2024 Noted Allergy Reaction CODEINE 03/30/2017 2 - Rash Comments: Agitation, Doesn't work Date Reviewed: 08/02/2024 Reviewed by: Santosh Del Rio MA - Fully Assessed Primary Visit Diagnosis:High risk medication use [Z79.899] Order(s):UA DIP, URINE (POC) [[id number]] Order #: [id number]. #:[id number] Prescriptions as of 08/09/2024 - doxazosin (CARDURA) [...] 100 mg by mouth as needed. - cmlagoudiep-vpvjlfikl-waqvsdil (TRELEGY ELLIPTA) 100-62.5-25 mcg inhalation powder Inhale 1 Puff as instructed once daily. Problem List As Of Date 08/09/2024 Noted Resolved Bladder cancer (HCC) [C67.9] 07/26/2024 Encounter Status:Closed by September on 08/09/24NoalCBrown [facility] HospitalUA DIP, URINE (POC)on [id number] UA (POCT)NegativeNegative [facility] HospitalCLARITY [facility]A (POCT)ClearShelby [facility] HospitalCOLOR UA (POCT)Yellow [facility] HospitalGLUCOSE UA (POCT)NegativeNegative mg/dLShelby [facility] Hemoglobin Ql (U)NegativeNegativeShelby Memorial HospitalInterpretation and review of laboratory resultsAbnormalCleveland ClinicKETONE UA (POCT)NegativeNegative mg/dL [facility] HospitalLEUKOCYTES UA (POCT)TraceAbnormalNegativeShelby Memorial HospitalNITRITE UA (POCT)NegativeNegativeShelby Memorial HospitalPH UA (POCT)5.54.5 - 8.0S[facility] Memorial HospitalProtein Ql (U)NegativeNegative mg/dLMercy Health St. Anne HospitalPECIFIC GRAVITY UA (POCT)1.0151.005 - 1.030Shelby Memorial HospitalUROBILINOGEN UA (POCT)0.2Normal E.U./dL [facility] HospitalLocation:[facility], [address] [place] [address] , [place], [place], [address]XKBQGTVMXSUMMA [facility]ALTH [facility] POINT OF CAREShelby Memorial HospitalCNPNon [id number] Telephone (MAGGI) MARY DIAZ ([id number]) 1950 [facility] Time Provider Department 08/07/24 INGRID UGALDE During [...] 100 mg by mouth as needed. - jwdgsithjrg-fiuulgskh-kuqsfvom (TRELEGY ELLIPTA) 100-62.5-25 mcg inhalation powder Inhale 1 Puff as instructed once daily. Problem List As Of Date 08/07/2024 Noted Resolved Bladder cancer (HCC) [C67.9] 07/26/2024 Encounter Status:Closed by INGRID UGALDE on 08/07/24[facility] HospitalCNNDeaconess Incarnate Word [facility] [id number] Visit (HEMASA) MARY DIAZ ([id number]) 1950 [facility] Date Time Provider Department 08/02/24 9:00 AM BRUNO NURSE ENRIQUE TAY During your visit today, we recorded the following information about you: Santosh Del Rio MA 08/02/2024 8:51 AM Signed UA performed as ordered. Santosh Del Rio MA Referring Provider: NORBERTO ANDRADE [[id number]] Allergies As of Date: 08/02/2024 Noted Allergy Reaction CODEINE 03/30/2017 2 - Rash Comments: Agitation, Doesn't work Date Reviewed: 08/02/2024 Reviewed by: Santosh Del Rio MA - Fully Assessed Primary Visit Diagnosis:Malignant neoplasm of urinary bladder, unspecified site (HCC) [C67.9] Order(s):UA DIP, URINE (POC) [[id number]] Order #: [id number]. #:[id number] Prescriptions as of 08/02/2024 - doxazosin (CARDURA) [...] 100 mg by mouth as needed. - nncxnqjrudi-myyeqczjv-qbpjxukz (TRELEGY ELLIPTA) 100-62.5-25 mcg inhalation powder Inhale 1 Puff as instructed once daily. Problem List As Of Date 08/02/2024 Noted Resolved Bladder cancer (HCC) [C67.9] 07/26/2024 Encounter Status:Closed by SANTOSH DEL RIO on 08/02/24[facility] Regional HospitalCNOVSPon [id number] (SP) Office (HEMASA) MARY DIAZ ([id number]) 1950 [facility] Date Time Provider Department 08/02/24 8:30 AM NORBERTO ANDRADE During your visit today, we recorded the following information about you: Temperature Pulse Respiration Blood pressure 97.5 degrees 80/minute 18/minute 131/79 Weight 88.5 kg Norberto Andrade MD 08/02/2024 9:15 AM Signed PATIENT NAME: Mary Diaz CLINIC NO.: [id number] ATTENDING PHYSICIAN: Norberto Andrade MD DATE OF SERVICE: 08/02/[address] 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 Urology recommended induction [...] Take 100 mg by mouth as needed. dmjtbmqaofo-mxkawbfzf-wfexjtig (TRELEGY ELLIPTA) 100-62.5-25 mcg inhalation powder Inhale [...] or lesions. Eyes: Anic (more content not included)...NormalSt. Francis HospitalvelandUA DIP, URINE (POC)on [id number] UA (POCT)NegativeNegativeShelby Memorial Hospital CLARITY UA (POCT)ClearShelby Memorial HospitalCOLOR UA (POCT)YellowShelby Memorial Hospital GLUCOSE UA (POCT)NegativeNegative mg/dLShelby Memorial HospitalHemoglobin Ql (U)Small AbnormalNegativeShelby Memorial HospitalInterpretation and review of laboratory results AbnormalShelby Memorial HospitalKETONE UA (POCT)NegativeNegative mg/dLShelby Memorial Hospital LEUKOCYTES UA (POCT)SmallAbnormalNegativeShelby Memorial HospitalNITRITE UA (POCT) NegativeNegativeShelby Memorial HospitalPH UA (POCT)5.54.5 - 8.0S[facility] Memorial HospitalProtein Ql (U)TraceAbnormalNegative mg/dLMercy Health St. Anne HospitalPECIFIC GRAVITY UA (POCT)1.02 1.005 - 1.030Shelby Memorial HospitalUROBILINOGEN UA (POCT)0.2Normal E.U./dLShelby Memorial HospitalLocation:[facility], [address] , [place], [place], [address]KZHNUWAZYSUMMA HEALTH WADSWORTH [facility] POINT OF CAREShelby Memorial HospitalCNPNon [id number] Telephone (STACIE) MARY DIAZ ([id number]) 1950 Sue CARLOS Date Time Provider Department 08/01/24 FINANCIAL NAVIGATOR ENRIQUE QUINONES During your visit today, we recorded the following information about you: Esther Patterson 08/01/2024 12:10 PM Signed Spoke with patient over the phone today. Patient is active with [employer], LOC 80%, $0 deductible has $0 remaining, $3500 OOP has $3400 remaining. Estimate shows patient financial responsibility is $134.16 for each treatment in 2024 until oop max is reached. Patient stated understanding. Reference #[id number]. There is currently no Bladder funding available, but will add him to my wait list. MyCost completed over the phone. He was very appreciative of my phone call. Allergies As of Date: 08/01/2024 Noted Allergy Reaction CODEINE 03/30/2017 2 - Rash Comments: Agitation, Doesn't work Date Reviewed: 07/19/2024 Reviewed by: Suzanna Waters MA - Fully Assessed Reason for Visit: Benefits Investigation [8682] Cmt: Good Day Mary, I am your [...] feel free to stop in or call [phone] for any questions you may have. Prescriptions [...] 100 mg by mouth as needed. - ggejtmpcliv-sxvdatfkw-nvncwusg (TRELEGY ELLIPTA) 100-62.5-25 mcg inhalation powder Inhale 1 Puff as instructed once daily. Problem List As Of Date 08/01/2024 Noted Resolved Bladder cancer (HCC) [C67.9] 07/26/2024 Encounter Status:Closed by ESTHER PATTERSON on 08/01/24NormalCSumma Health W Auto Differential panel (Bld)on 42-36-1132Qkontkfhi (Bld) [#/Vol] 10*3/uLNormal<0.11CMagruder Hospital on above:Order Comment: Specimen Type: BLOOD SPECIMENOrdering Facility: [facility] Address:[address] [place], [place] [address]Qtfuoaqyy By: #### 11435-1 ####[facility] LABCLIA [id number] [place], [place] [address]Jzwguyukz/100 WBC (Bld)0.3 %NormalMercer County Community Hospital on above:Order Comment: Specimen Type: BLOOD SPECIMENOrdering Facility: [facility] Address:[address] [place], [place] [address]Performed By: #### 54325-2 ####[facility] LABCLIA [id number] [place], [place] [address]Slnvqlceybhk cell count method Nom (Bld)AutoNormalClevelMarion Hospital on above:Order Comment: Specimen Type: BLOOD SPECIMENOrdering Facility: [facility] Address:[address] [place], [place] [address]Performed By: #### 78622-1 ####[facility] LABIA [id number] [place], [place] [address]Ughskpjrkbx (Bld) [#/Vol]0.13 10*3/uLNormal<0.46[facility] on above:Order Comment: Specimen Type: BLOOD SPECIMENOrdering Facility: [facility] Address:[address] [place], [place] [address]Performed By: #### 28970-0 ####[facility] LABIA [id number] [place], [place] [address]Vhlfxmoxgug/100 WBC (Bld)1.9 %NormalMercer County Community Hospital on above:Order Comment: Specimen Type: BLOOD SPECIMENOrdering Facility: [facility] Address:[address] [place], [place] [address]Performed By: #### 12964-5 ####[facility] LABIA [id number] [place], [place] [address]Obevbvjlqgt distribution width (RBC) [Ratio]13.9 %Normal 11.5-15.0[facility] on above:Order Comment: Specimen Type: BLOOD SPECIMENOrdering Facility: [facility] Address:[address] [place], [place] [address]Performed By: #### 21989-9 ####[facility] LABCLIA [id number] [place] [address] Hematocrit (Bld) [Volume fraction]36.5 %Low39.0-51.0[facility] Comment on above:Order Comment: Specimen Type: BLOOD SPECIMENOrdering Facility: [facility] Address:[address] [place] [address] Performed By: #### 85631-3 ####[facility] LABIA [id number] [place], [place] [address]Ljxekspyzn (Bld) [Mass/Vol]12.4 g/dLLow13.0-17.0[facility] on above:Order Comment: Specimen Type: BLOOD SPECIMENOrdering Facility: [facility] Address:[address] [place], [place] [address]Performed By: #### 09017-0 ####[facility] LABIA [id number] [place], [place] [address]Aorownlg granulocytes (Bld) [#/Vol]0.05 10*3/uLNormal <0.10TriHealthment on above:Order Comment: Specimen Type: BLOOD SPECIMENOrdering Facility: [facility] Address:[address] [place], [place] [address]Performed By: #### 53913-4 ####[facility] LABIA [id number] [place], [place] [address]Qygzklyo granulocytes/100 WBC (Bld)0.7 %NormalMercer County Community Hospital on above: Order Comment: Specimen Type: BLOOD SPECIMENOrdering Facility: [facility] Address:[address] [place], [place] [address]Performed By: #### 69393- 8 ####[facility] LABIA [id number] [place], [place] [address]Apbqivcvyij (Bld) [#/Vol]1.40 10*3/uLNormal1.00-4.00 [facility] on above:Order Comment: Specimen Type: BLOOD SPECIMENOrdering Facility: [facility] Address:[address] [place], [place] [address]Performed By: #### 27636-8 ####[facility] LABCLIA [id number] [place], [place] [address]Yttiflsobpi/100 WBC (Bld)20.7 %NormalMercer County Community Hospital on above:Order Comment: Specimen Type: BLOOD SPECIMENOrdering Facility: [facility] Address:[address] [place], [place] [address]Performed By: #### 94476-9 ####[facility] LABCLIA [id number] [place], [place] [address]PIF (RBC) [Entitic mass]31.2 vaTbjsrv13.0-34.0[facility] on above:Order Comment: Specimen Type: BLOOD SPECIMENOrdering Facility: [facility] Address:[address] [place], [place] [address]Performed By: #### 23549-7 ####[facility] LABIA [id number] [place], [place] [address]FGFE (RBC) [Mass/Vol]34.0 g/lLDvrpva06.5-36.0[facility] on above: Order Comment: Specimen Type: BLOOD SPECIMENOrdering Facility: [facility] Address:[address] [place], [place] [address]Performed By: #### 76508- 8 ####[facility] LABIA [id number] [place], [place] [address]MXC (RBC) [Entitic vol]91.7 rVMfkgts06.0-100.0[facility] on above:Order Comment: Specimen Type: BLOOD SPECIMENOrdering Facility: [facility] Address:[address] [place], [place] [address]Performed By: #### 84722-2 ####[facility] LABCLIA [id number] [place], [place] [address]Lnexixxjo (Bld) [#/Vol]0.62 10*3/uLNormal<0.87[facility] on above:Order Comment: Specimen Type: BLOOD SPECIMENOrdering Facility: [facility] Address:[address] [place], [place] [address]Performed By: #### 63713- 8 ####[facility] LABCLIA [id number] [place], [place] [address]Ldqtpjzcd/100 WBC (Bld)9.2 %NormalMercer County Community Hospital on above:Order Comment: Specimen Type: BLOOD SPECIMENOrdering Facility: [facility] Address:[address] [place], [place] [address]Performed By: #### 57721-8 ####[facility] LABIA [id number] [place], [place] [address]Umnlmswyvax (Bld) [#/Vol]4.54 10*3/uLNormal1.45-7.50[facility] on above:Order Comment: Specimen Type: BLOOD SPECIMENOrdering Facility: [facility] Address:[address] [place], [place] [address]Performed By: #### 40638-8 ####[facility] LABCLIA [id number] [place], [place] [address]Qmumwkdipsj/100 WBC (Bld)67.2 %NormalMercer County Community Hospital on above:Order Comment: Specimen Type: BLOOD SPECIMENOrdering Facility: [facility] Address:[address] [place], [place] [address]Performed By: #### 32428-4 ####[facility] LABIA [id number] [place], [place] [address]Itmwcszqc RBC (Bld) [#/Vol] 10*3/uLNormal<0.01[facility] on above:Order Comment: Specimen Type: BLOOD SPECIMENOrdering Facility: [facility] Address:[address] [place], [place] [address]Performed By: #### 33300-6 ####[facility] LABCLIA [id number] [place], [place] [address]Qilacbiww RBC/100 WBC (Bld) [Ratio]0.0 /100 WBCNormal [facility] on above:Order Comment: Specimen Type: BLOOD SPECIMENOrdering Facility: [facility] Address:[address] [place], [place] [address]Performed By: #### 32368-4 ####[facility] LABCLIA [id number] [place], [place] [address]Tnxutszv mean volume (Bld) [Entitic vol]9.4 fLNormal9.0-12.7CMagruder Hospital on above:Order Comment: Specimen Type: BLOOD SPECIMENOrdering Facility: [facility] Address:[address] [place] [address] Performed By: #### 69646-5 ####[facility] LABCLIA [id number] [place], [place] [address]Iycarcxum (Bld) [#/Vol]209 10*3/uXProtsq800-270BlsqrmyhmMercer County Community Hospital on above:Order Comment: Specimen Type: BLOOD SPECIMENOrdering Facility: [facility] Address:[address] [place], [place] [address]Performed By: #### 35629-4 ####[facility] LABCLIA [id number] [place], [place] [address]CRQ (Bld) [#/Vol]3.98 10*6/uLLow4.20-6.00[facility] on above:Order Comment: Specimen Type: BLOOD SPECIMENOrdering Facility: [facility] Address:[address] [place], [place] [address]Performed By: #### 42708-3 ####[facility] LABCLIA [id number] [place], [place] [address]JAF (Bld) [#/Vol]6.76 10*3/uL Normal3.70-11.00[facility] on above:Order Comment: Specimen Type: BLOOD SPECIMENOrdering Facility: [facility] Address:[address] [place], [place] [address]Performed By: #### 55061-0 ####[facility] LABCLIA [id number] [place], [place] [address]RLLSYEOuw 59-94-9834RMHMUWKHwovc Visit (HEMASA) MARY DIAZ ([id number]) 1950 [facility] Date Time Provider Department 07/26/24 11:00 [...] minutes REFERRAL (RECOMMENDATION): N/A Ingrid Ugalde RN Pharmaceutical Compounding Supervisor Pre Chemo Patient identified by name and date of . YES Confirmed date and time for chemotherapy ? YES Other appointments (labs, imaging) discussed? YES Discussed where to park (network architect), charge for parking NO Discussed where to [...] Ingrid Ugalde RN Referring Provider: NORBERTO ANDRADE [[id number]] Allergies As of Date: 07/26/2024 Noted Allergy Reaction CODEINE 03/30/2017 2 - Rash Comments: Agitation, Doesn't work Date Reviewed: 07/19/2024 Reviewed by: Suzanna Waters MA - Fully Assessed Reason for Visit: First Time Treatment Education [3669] Primary Visit Diagnosis:Malignant neoplasm of urinary bladder, unspecified site (HCC) [C67.9] Prescriptions as of 07/26/2024 - methocarbamol 1, (more content not included)...NormalOhiohealth O'Bleness HospitalComprehensive metabolic 2000 panelon 73-08-2027Djomtfn [Mass/Vol]4.2 g/dLNormal3.9-4.9CMagruder Hospital on above:Order Comment: Specimen Type: BLOOD SPECIMENOrdering Facility: [facility] Address:[address] [place], [place] [address]Performed By: #### 87466-5 ####[facility] LABCLIA [id number] [place], [place] [address]ELW [Catalytic activity/Vol]55 U/LWjtuth54-487BougstiosMercer County Community Hospital on above:Order Comment: Specimen Type: BLOOD SPECIMENOrdering Facility: [facility] Address:[address] [place], [place] [address]Performed By: #### 10095-6 ####[facility] LABCLIA [id number] [place], [place] [address]IBE [Catalytic activity/Vol]17 U/VXjqnie64-67EvirbdunpMercer County Community Hospital on above:Order Comment: Specimen Type: BLOOD SPECIMENOrdering Facility: [facility] Address:[address] [place], [place] [address]Performed By: #### 88732- 8 ####[facility] LABCLIA [id number] [address] [address] JO[facility]ST[facility] [place] [address]Wpxyg gap [Moles/Vol]8 mmol/LNormal8-15[facility] on above:Order Comment: Specimen Type: BLOOD SPECIMENOrdering Facility: [facility] Address:[address] [place], [place] [address]Performed By: #### 80730-9 ####[facility] LABCLIA [id number] [address] ADRIANDIGN[address] ST[address] JO[facility]PH'[facility] WESTG[facility] MEDICAL CENTERRALPHKING [place], [place] [address]XVV [Catalytic activity/Vol]14 U/YPfvjku78-75ZwiokvbguMercer County Community Hospital on above:Order Comment: Specimen Type: BLOOD SPECIMENOrdering Facility: [facility] Address:[address] [place], [place] [address]Performed By: #### 18178-6 ####[facility] LABCLIA [id number] [facility] HOSPITALBETH ADRIANDIGNITY HEALTH ST[facility] JO[facility]PH'[facility] WEST[facility] [place] [address] Bilirubin [Mass/Vol]0.5 mg/dLNormal0.2-1.3CMagruder Hospital on above:Order Comment: Specimen Type: BLOOD SPECIMENOrdering Facility: [facility] Address:[address] [place], [place] [address]Performed By: #### 89300-9 ####[facility] LABCLIA [id number] [place] [address]Aqapdnf [Mass/Vol]9.5 mg/dLNormal8.5-10.2CMagruder Hospital on above:Order Comment: Specimen Type: BLOOD SPECIMENOrdering Facility: [facility] Address:[address] [place], [place] [address]Performed By: #### 24285-5 ####[facility] LABCLIA [id number] [place], [place] [address]Ebbikyrl [Moles/Vol]101 mmol/FUasadt82-734HjvpgafvgMercer County Community Hospital on above: Order Comment: Specimen Type: BLOOD SPECIMENOrdering Facility: [facility] Address:[address] [place], [place] [address]Performed By: #### 68468- 8 ####[facility] LABCLIA [id number] [place], [place] [address]QJ0 [Moles/Vol]26 mmol/FMbcgws39-38HtbtzwxtdMercer County Community Hospital on above:Order Comment: Specimen Type: BLOOD SPECIMENOrdering Facility: [facility] Address:[address] [place], [place] [address]Performed By: #### 59256-8 ####[facility] LABCLIA [id number] [place], [place] [address]Mohliyuuxy [Mass/Vol]1.31 mg/dL High0.73-1.22[facility] on above:Order Comment: Specimen Type: BLOOD SPECIMENOrdering Facility: [facility] Address:[address] [place], [place] [address]Performed By: #### 65263-0 ####[facility] LABCLIA [id number] [place] [address] Creatinine and Glomerular filtration rate.predicted panel (S/P/Bld)57 mL/min/1.73m???Low>=60[facility] on above:Order Comment: Specimen Type: BLOOD SPECIMENOrdering Facility: [facility] Address:[address] [place], [place] [address]Result Comment: Estimated Glomerular Filtration Rate (eGFR) is calculated using the 2020 CKD-EPI creatinine equation. This equation utilizes serum creatinine, sex, and age as parameters. The creatinine assay has traceable calibration to isotope dilution-mass spectrometry. Refer to KDIGO guidelines for clinical interpretation. In patients with unstable renal function, e.g. those with acute kidney injury, the eGFR may not accurately reflect actual GFR.Performed By: #### 32781-3 ####[facility] LABCLIA [id number] [place] [address] Glucose [Mass/Vol]108 mg/oWXtrm29-93BesodigsaMercer County Community Hospital on above: Order Comment: Specimen Type: BLOOD SPECIMENOrdering Facility: [facility] Address:[address] [place], [place] [address]Iprupd Comment: The [place] Diabetes Association (ADA) provides guidance for cutoff [...] Standards of Medical Care in Diabetes 2016, [place] [employer] Association. Diabetes Care. 2016.39(Suppl 1).Performed By: #### 53000-3 ####[facility] LABCLIA [id number] [place], [place] [address]Ggwielbmo [Moles/Vol]4.5 mmol/LNormal3.7-5.1CMagruder Hospital on above:Order Comment: Specimen Type: BLOOD SPECIMENOrdering Facility: [facility] Address:[address] [place], [place] [address]Performed By: #### 60646-2 ####[facility] LABCLIA [id number] [place], [place] [address]Krvduon [Mass/Vol]6.2 g/dLLow6.3-8.0[facility] on above:Order Comment: Specimen Type: BLOOD SPECIMENOrdering Facility: [facility] Address:[address] [place] [address]Owdmpoylc By: #### 25593- 8 ####[facility] LABCLIA [id number] [place], [place] [address]Ndtkoq [Moles/Vol]135 mmol/ZOrf054-727PrshedotxMercer County Community Hospital on above:Order Comment: Specimen Type: BLOOD SPECIMENOrdering Facility: [facility] Address:[address] [id number] By: #### 03710-4 ####[facility] LABCLIA [id number] [place], [place] [address]Fjkn nitrogen [Mass/Vol]17 mg/dLNormal9-24[facility] on above:Order Comment: Specimen Type: BLOOD SPECIMENOrdering Facility: [facility] Address:[facility] [place] [place] [id number] By: #### 97393-4 ####[facility] LABCLIA [id number] [place], [place] [address]NVVDAHbf [id number] (SP) Office (HEMASA) MARY DIAZ ([id number]) 1950 [facility] Date Time Provider Department 07/19/24 11:00 AM NORBERTO ANDRADE During your visit today, we recorded the following information about you: Temperature Pulse Respiration Blood pressure 97.2 degrees 81/minute 18/minute 121/74 Weight 86.7 kg Norberto Andrade MD 07/19/2024 11:42 AM Signed PATIENT NAME: Mary Diaz CLINIC NO.: [id number] ATTENDING PHYSICIAN: Norberto Andrade MD DATE OF SERVICE: July 19, [address] Lionel Whitney [address] [facility] [address] thank you for referring Mary Rogers Emily [...] atleast 1 fragment without obvious stromal invasion (signal intelligence analyst). 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 Urology recommended induction [...] atleast 1 fragment without obvious stromal invasion (signal intelligence analyst). 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 - Urology recommended induction BCG x 6 treatments. - We will start him on weekly BCG treatments after 2 weeks from today - Check CBC CMP - All his questions answered in detail - F/u in [address] Lionel Whitney [address] [facility] [address] thank you for allowing me to participate in Mary Diaz care, if there are any questions or concerns please do not hesitate to contact me at the number below. I spent a total of 60 pawan (more content not included)...NormalOhiohealth O'Bleness HospitalAmbulatory Visit Summaryon 79-28-4688Kiwiaxoeld Visit SummaryAmbulatory Visit Summary MARY DIAZ :1950 [...] Lionel WHITNEY MD Where: [facility] [address] [place] [address]- You Need to Schedule the Following Appointments Follow Up with Lionel WHITNEY MD, URL When: Where: [facility] [address] [place] [address]- Medications What How Much When Instructions Unchanged [...] family history of bladd (more content not included)...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 Mitomycin 03/26/22 and 04/20/22. TURBT 01/14/23 - Neg. Chronic inflammation and extensive necrosis. 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 Reviewed pathology with pt. Intravesical BCG recommended to help prevent tumor recurrence. EORTC 88700 trial showed no difference between 1/3 dose and full- dose BCG in patients with high-risk disease. Pt is aware of the reasoning and is amenable to proceed as discussed. Will likely need to refer [facility] for BCG. Previously received mitomycin which is good for low grade bladder ca but not high grade. Follow up after below or sooner if needed. Pt understands and agrees with plan. -Refer to [facility] for induction BCG x 6 doses. Then [...] [facility] [address], [place] [address]- Additional Instructions: Refer to [facility] for induction BCG x 6 doses Patient [...] (08/2014), Colonoscopy (05/2014), Complete (more content not included)...[facility] Medical CenterComment on above:Result Comment: Electronically Signed By: Lionel WHITNEY MD\.br\Date and Time Signed: 07/12/24 11:00 EST\.br\Electronically Co-Signed By: Liane Wheeler\.br\Date and Time Co-Signed: 07/12/24 10:59 ESTLon 07-06-2024L Specimen: [id number] Received: 07/07/24 Status: ZACKERY Nails Num: [id number] Spec Type: Surgical Subm Dr: Lionel Whitney MD Tissues: A Urinary Bladder - TUR (BLADDER TUMOR) Procedures: FRANSICO, Gross/Micro L5 Age/ Patient Sex Location Account Attending Physician Mary Diaz 74/M LABELL [id number] Lionel Whitney MD SPEC NUM: [id number] RECD: 07/07/24 STATUS: ZACKERY REBeltran NUM: [id number] JOE: 07/06/24 [facility] DR: Lionel Whitney MD ENTERED: 07/07/24 [facility] DR: Melba,Lab SPEC TYPE: Surgical DEPT: KIANA HERNANDEZ ENTERED BY: [id number] RECV BY: [id number] ORDERED: HE, Gross/Micro L5 ORDERED: HE, Gross/Micro L5 Pathological Diagnosis Urinary bladder tumor, TURBT: -A small focus of borderline high-grade papillary urothelial carcinoma in at least 1 fragment, without obvious stromal invasion (signal intelligence analyst) -Muscularis propria muscle is also present in [...] BS25 Received: 07/07/24 Status: ZACKERY Nails Num: [id number] Spec Type: Surgical Subm Dr: Lionel Whitney MD Tissues: A Urinary Bladder - TUR (BLADDER TUMOR) Procedures: Kathy BATEMAN/Eligio Ochoa Patient: Mary Diaz [id number] (Continued) Specimen: [id number] Received: 07/07/24 (Continued) Signed (signature on file) Yordy Dixon MD 07/10/24 1627 Specimen: [id number] Received: 07/07/24 Status: ZACKERY Nails Num: [id number] Spec Type: Surgical Subm Dr: Lionel Whitney MD Tissues: A Urinary Bladder - TUR (BLADDER TUMOR) Procedures: Kathy BATEMAN/Micro L5 Patient: Mary Diaz [id number] (Continued) Specimen: [id number] Received: 07/07/24 (Continued) Microscopic Description Microscopic examinations are performed supporting the above interpretation CPT Codes 66999 Specimen: [id number] Received: 07/07/24-1422 Status: ZACKERY Nails Num: [id number] Spec Type: Surgical Subm Dr: Lionel Whitney MD Tissues: A Urinary Bladder - TUR (BLADDER TUMOR) Procedures: HE, Gross/Micro L5 Patient: Mary Diaz [id number] (Continued) Signed (signature on file) Yordy Dixon MD 07/10/[address] [place] [address] Physician GroupTRANSTHORACIC ECHO (TTE) COMPLETE [id number] ECHO (TTE) [address], [address] [place] [address] TRANSTHORACIC ECHOCARDIOGRAM REPORT Patient Name: MARY DIAZ [place] Physician: [id number] Rolly Michaels MD, [facility] Study Date: 06/09/2024 Ordering Provider: [id number] CADY ESPINOSA MRN/PID: [id number] Fellow: Nurse: Date of /Age: 8 1950 / 74 years World Geography Teacher: Alyse Arriaga RDCS, RVT Gender Assigned at Additional Staff: : Height: 182.88 cm Admit Date: Weight: 86.64 kg Admission Status: BSA / BMI: 2.09 m2 / 25.90 Department Location: [facility] kg/m2 [place] Blood Pressure: 162 /82 mmHg Study Type: TRANSTHORACIC ECHO (TTE) COMPLETE Diagnosis/ICD: Shortness of breath-R06.02 Indication: HTN, Hyperlipidemia, Former Smoker, Asymetrical Upper Extremity Blood Pressures, History of Bladder and Prostate Cancer CPT Codes: Echo Complete w Full Doppler-45149 Study Detail: The following Echo studies were [...] mmHg PIEDV: 2.07 m/s PADP: 20.1 mmHg [id number] Rolly Michaels MD, FACC Electronically signed on 06/09/2024 at 4:40:40 PM Final [facility] HospitalUS Heart TransthoracicOrdered By: Rolly Michaels on 39-95-9225Yihrup Valve Area by Continuity of Peak Velocity2.99 ce2EkbvyzbpflKettering Health [facility] Work Phone: [phone] Valve Area by Continuity of VTI3.72 cm2 [facility] Work Phone: [phone] mn qeex9nsQeJzdprwuchtLouis Stokes [facility] Work Phone: [phone] pk ncik1dgUlDlndpytvzyKettering Health [facility] Work Phone: [phone] pk vel1.47 m/sUnGrant Hospital Work Phone: [phone] A4C EF71.4[facility] Work Phone: [phone] Biplane EF68 %[facility] Work Phone: [phone] EF63 %[facility] Work Phone: [phone] [facility] Work Phone: [phone] diam2.5 [facility] Work Phone: [phone] avg E/e' ratio6.2[facility] Work Phone: [phone] E/A ratio0.57[facility] Work Phone: RVSP30.2mmHgUnGrant Hospital Work Phone: [facility] Work Phone: US Heart Transthoracicon 06-09-2024 [facility] [place] [address], [address], [place] [address] TRANSTHORACIC ECHOCARDIOGRAM REPORT Patient Name: MARY DIAZ [place] Physician: [id number] Rolly Michaels MD, [facility] Study Date: 06/09/2024 Ordering Provider: [id number] CADY ESPINOSA MRN/PID: [id number] Fellow: Nurse: Date of /Age: 8 1950 / 74 years World Geography Teacher: Alyse Arriaga RDCS, RVT Gender Assigned at Additional Staff: : Height: 182.88 cm Admit Date: Weight: 86.64 kg Admission Status: BSA / BMI: 2.09 m2 / 25.90 Department Location: [facility] kg/m2 [place] Blood Pressure: 162 /82 mmHg Study Type: TRANSTHORACIC ECHO (TTE) COMPLETE Diagnosis/ICD: Shortness of breath-R06.02 Indication: HTN, Hyperlipidemia, Former Smoker, Asymetrical Upper Extremity Blood Pressures, History of Bladder and Prostate Cancer CPT Codes: Echo Complete w Full Doppler-09991 Study Detail: The following Echo studies were [...] content not included)...Rolly Fleming MD - 06/09/[address], [address] [address] TRANSTHORACIC ECHOCARDIOGRAM REPORT Patient Name: MARY DIAZ [place] Physician: [id number] Rolly Michaels MD, [facility] Study Date: 06/09/2024 Ordering Provider: [id number] CADY ESPINOSA MRN/PID: [id number] Fellow: Nurse: Date of /Age: 8 1950 / 74 years World Geography Teacher: Alyse Arriaga RDCS, T Gender Assigned at Additional Staff: : Height: 182.88 cm Admit Date: Weight: 86.64 kg Admission Status: BSA / BMI: 2.09 m2 / 25.90 Department Location: [facility] kg/m2 [facility] Blood Pressure: 162 /82 mmHg Study Type: TRANSTHORACIC ECHO (TTE) COMPLETE Diagnosis/ICD: Shortness of breath-R06.02 Indication: HTN, Hyperlipidemia, Former Smoker, Asymetrical Upper Extremity Blood Pressures, History of Bladder and Prostate Cancer CPT Codes: Echo Complete w Full Doppler-73845 Study Detail: The following Echo studies were [...] mmHg PIEDV: 2.07 m/s PADP: 20.1 mmHg [id number] Rolly Michaels MD, FACC Electronically signed on 06/09/2024 at 4:40:40 PM Final [facility] Work Phone: us.doppler Carotid arteries - bilateralon 06-09-[address], Suite [facility], [place] [address] Vascular Lab Report [facility] US CAROTID ARTERY DUPLEX BILATERAL Patient Name: MARY DIAZ [place] Physician: [id number] Rolly Michaels MD, [facility] Study Date: 06/09/2024 Ordering Provider: [id number] CADY ESPINOSA MRN/PID: [id number] Fellow: Technologist: Alyse Arriaga RD, T Date of /Age: 8 1950 / 74 years Technologist 2: Gender: M Admission Status: Outpatient Location Performed: [facility] Diagnosis/ICD: Other specified symptoms and signs involving the circulatory and respiratory systems-R09.89 Indication: Unequal Upper Extremity Blood Pressures, HTN, Hyperlipidemia, Former Smoker, History of Bladder and Prostate Cancer CPT Codes: 11194 Cerebrovascular Carotid Duplex scan complete CONCLUSIONS: Right [...] cm/s Right Left ICA/CCA Ratio 1.5 0.7 [id number] Rolly Michaels MD, FACC Final Rolly Fleming MD - 06/09/[address], [address] [place] [address] Vascular Lab Report [facility] US CAROTID ARTERY DUPLEX BILATERAL Patient Name: MARY DIAZ [place] Physician: [id number] Rolly Michaels MD, FAC Study Date: 06/09/2024 Ordering Provider: [id number] ESPINOSA MRN/PID: [id number] Fellow: Technologist: Alyse Arriaga RD, [facility] Date of /Age: 8 1950 / 74 years Technologist 2: Gender: M Admission Status: Outpatient Location Performed: [facility] Diagnosis/ICD: Other specified symptoms and signs involving the circulatory and respiratory systems-R09.89 Indication: Unequal Upper Extremity Blood Pressures, HTN, Hyperlipidemia, Former Smoker, History of Bladder and Prostate Cancer CPT Codes: 64039 Cerebrovascular Carotid Duplex scan complete CONCLUSIONS: Right [...] cm/s Right Left ICA/CCA Ratio 1.5 0.7 [id number] Rolly Michaels MD, FACC Final [facility] Work Phone: Radiology Study observation (narrative)[facility] Work Phone: US.doppler Carotid arteries - bilateralOrdered By: Rolly Michaels on 24-73-3482CoqozgvaenGrant Hospital Work Phone: VAS US CAROTID ARTERY DUPLEX BILATERALon 06-09-2024 [facility] US CAROTID ARTERY DUPLEX BILATERALNorth [address], [address] [place] [address] Vascular Lab Report [facility] US CAROTID ARTERY DUPLEX BILATERAL Patient Name: MARY DIAZ [place] Physician: [id number] Rolly Michaels MD, [facility] Study Date: 06/09/2024 Ordering Provider: [id number] CADY GUTIERREZAN MRN/PID: [id number] Fellow: Technologist: Alyse Arriaga RDCS, RVT Date of /Age: 8 1950 / 74 years Technologist 2: Gender: M Admission Status: Outpatient Location Performed: [facility] Diagnosis/ICD: Other specified symptoms and signs involving the circulatory and respiratory systems-R09.89 Indication: Unequal Upper Extremity Blood Pressures, HTN, Hyperlipidemia, Former Smoker, History of Bladder and Prostate Cancer CPT Codes: 40899 Cerebrovascular Carotid Duplex scan complete CONCLUSIONS: Right [...] cm/s Right Left ICA/CCA Ratio 1.5 0.7 [id number] Rolly Michaels MD, FACC Final [facility] HospitalUrine Cytology ([facility])on 33-12-3965Vdprbvlcjop exam Cytology (U) [Interp]Diagnosis InfoInvalid Interpretation [facility] HospitalComment on above:Result Comment: A:Urine,Urine:Voided Interpretation - Occasional atypical urothelial cells with degenerative changes. CPT 89501 MicroScopic Description - Adequacy - Gross Description Site ID:A color Yellow fixative Alcohol Specimen designated Urine received in alcohol preservative and labeled with the patient???s name, consists of 40ml clear yellow fluid. Electronically signed by : on: 05/29/2024 13:16:19Performed By: #### [id number] #### [facility] [address] [place], [place] [address]Gkuia Cytology ([facility])on 85-08-1042LB Method of Extraction VoidedNoWVUMedicine Barnesville HospitalComment on above:Performed By: #### [id number] #### [facility] [address], [place] [address]IZ Number of Tkqa8Flnfvck Interpretation Berger HospitalComment on above:Performed By: #### [id number] #### [facility] [address], [place] [address]OD SpecimenUrineMercy Health St. Rita's Medical CenterComment on above:Performed By: #### [id number] #### [facility] [address], [place] [address]HA Type of ServiceTechnical OnlyMercy Health St. Rita's Medical CenterComment on above:Performed By: #### [id number] #### [facility] [address], [place] [address]TjhOekfqj Fish and Urine Cyto ([facility])on 59-82-3166GHTCFO & UC Diagnosis InfoInvalid Interpretation [facility] CenterComment on above:Result Comment: Gross Description Electronically signed by : on: 05/15/2024 11:58:17Performed By: #### [id number] #### [facility] [address], [place] [address]Cnqi OR Intraoperative Recordon 04-71-1939Cnrd OR Intraoperative RecordMain OR Intraoperative Record IntraOp Document Type FTURO Summary Primary Physician: Lionel WHITNEY MD Finalized Date/Time: 05/09/24 09:43:24 Pt. Name: MARY DIAZ/Sex: 1950 Male Med Rec #: [id number] Physician: Lionel WHITNEY MD Financial #: [id number] Pt. Type: O Room/Bed: / Admit/Disch: 05/09/24 [...] Nanci Bellamy Role Performed Surgeon - Primary Transmissions Systems Operator - Primary Scrub - Primary Time [...] Fitz ZELAYA, Frances Applicable) Carol Bellamy, Safia PACKER DENTURE, Nanci A Time Out Complete 05/09/24 09:33:00 [...] Signatures Signed By: Frances Byrnes RN 05/09/24 09:43NoWVUMedicine Barnesville HospitalMain OR Preoperative Recordon 68-67-2714Osgt OR Preoperative RecordMain OR Preoperative Record Holding Area Document Type FTURO Summary Primary Physician: Lionel WHITNEY MD Finalized Date/Time: 05/09/24 09:28:03 Pt. Name: MARY DIAZ/Sex: 1950 Male Med Rec #: [id number] Physician: Lionel WHITNEY MD Financial #: [id number] Pt. Type: O Room/Bed: / Admit/Disch: 05/09/24 [...] Complaints of Pain: No Skin Integrity Intact, [place], Warm, & Dry Vitals - EU Blood Pressure 190/90 Pulse 78 bpm Respirations 18 br/min SPO2 96 % Additional FISH RN Reviewed Yes Specimens Collected Last Modified By: Frances Byrnes RN 05/09/24 09:28:01 Finalized By: Frances Byrnes RN Document Signatures Signed By: Esther Boyd LPN 05/09/24 09:10 Frances Byrnes RN 05/09/24 09:28NormWVUMedicine [facility] Hospital Operative Reporton 07-01-8633Gfxszxwcq ReportOperative Report Patient: MARY DIAZ Age: 74 [...] discharged home with antibiotic coverage, Follow up arranged.[facility]'s Medical CenterComment on above:Result Comment: Electronically Signed By: Lionel WHITNEY MD\.br\Date and Time Signed: 05/09/24 09:48 ESTUroVysion Fish and Urine Cyto ([facility])on 62-98-9445SPQO Method of ExtractionVoidedNoWVUMedicine Barnesville HospitalComment on above: Performed By: #### [id number] #### [facility] [address] [place] [address]LKCE Number of Kcfs5Ritzgoh Interpretation CodeBarberton Citizens HospitalComment on above:Performed By: #### [id number] #### [facility] [address] [place] [address]IGLG SpecimenUrineNoWVUMedicine Barnesville HospitalComment on above:Performed By: #### [id number] #### [facility] [address] [place] [address]BFCD Type of ServiceTechnical OnlyNoWVUMedicine Barnesville HospitalComment on above:Performed By: #### [id number] #### [facility] [address] [place] [address]ZSM 12 [place] 81-31-3824QfuwnwodrqKettering Health [facility] Memorial Work Phone: cervical spine wo/w conon 66-06-2244DI cervical spine wo/[place] [address] MRI Report Signed Patient: Mary Diaz MR#: [id number] : 1950 Acct:[id number] Age/Sex: 73 / M ADM Date: 08/28/23 Loc: MR Room: Type: [facility] Attending Dr: Esther HILTON Copies to: [...] Lupe Campos M.D.08/29/2023 1:06 PM Dictation Location: [place] [address] Transcribed By: [facility] 08/29/23 1306 Dictated By: Lupe Campos MD 08/29/23 1254 Signed By: 08/29/23 1306NoR[facility] System Physician GroupISTAT XRay CREon 54-43-1944YFFZR GFR> 60.0NoRutherford Regional Health System Physician GroupComment on above:Result Comment: PERFORMED BY: [place] [address] PATHOLOGIST HANDYPERSON JENARO FLOREZ M.D.Performed By: #### ISCRE #### [place] [address] USANo Panel InformationOrdered By: Esther Lowery on 89-96-1413Oorcwtl Estimated GFR (eGFR)> 60.0[facility] Whole blood creatinine measurementOrdered By: Esther Lowery on 08-28-2023 Creatinine [Mass/Vol]1.2 mg/dLNormal0.6-1.3FKettering Health Hamilton Comment on above:ER/ESD physician is notified/shown all ISTAT results.Critical values may be confirmed by laboratorytesting ifdeemed necessary by ER attending doctor.Result Comment: ER/ESD physician is notified/shown all ISTAT results. Critical values may be confirmed by laboratory testing if deemed necessary by ER attending doctor.Performed By: #### ISCRE #### [place] [address] USAXR cervical spine LAT/FLX/EXTon 42-08-1602PQ cervical spine LAT/FLX/EXTMARIETTA [place] [address] XRay Report Signed Patient: aMry Diaz MR#: [id number] : 1950 Acct:[id number] Age/Sex: 73 / M ADM Date: 08/12/23 Loc: XD Room: Type: [facility] Attending Dr: Esther HILTON Copies [...] Leahy DO 08/12/23 1528 Signed By: 08/12/23 1529[facility] Physician GroupXR lumbar spine 6V w bendingon 87-86-5874AM lumbar spine 6V w bendingMARIETTA OSTEOPATHIC CLINIC [place] [address] [place] [address] XRay Report Signed Patient: Mary Diaz MR#: [id number] : 1950 Acct:[id number] Age/Sex: 73 / M ADM Date: 08/12/23 Loc: XD Room: Type: [facility] Attending Dr: Esther HILTON Copies [...] Leahy DO 08/12/23 1526 Signed By: 08/12/23 1528[facility] Physician GroupXR CSPINE MIN 4 VIEWSon 37-83-9442JA CSPINE MIN 4 VIEWSEXAMINATION: XR CSPINE MIN [...] Electronically authenticated by: ALLI CORTES Date: 2022-10-23 11:53WVUMedicine Barnesville HospitalXR LSPINE W_OBLS AND FLEX_EXTon 06-22-0479NH LSPINE W_OBLS AND FLEX_EXTEXAM: XR LSPINE W_OBLS AND FLEX_EXT HISTORY: Low back pain COMPARISON: None. TECHNIQUE: 2 views Findings/impression: Retrolisthesis of L2 over L3 by 4 mm. Multilevel endplate degenerative changes, disc disease, and anterior spurring. Calcified atherosclerotic disease of aorta. No acute fracture. Electronically authenticated by: JAMAICA GONZALEZ Date: 2022-10-23 13:18WVUMedicine Barnesville HospitalBNPon 69-52-2473Nvoypddmklt peptide B (Bld) [Mass/Vol]844.0 pg/mLNormal<=900.0[facility] Medical CenterComment on above:Performed By: #### CVDTBH #### [facility] [address] [place] [address] Dr. Johnna Lara AUTO DIFFon 61-33-4857NZIO #0.0 103/ulNormal0.0-0.1[facility] Medical CenterComment on above:Performed By: #### CBC #### [facility] [address] [place] [address] Dr. Johnna DixonBasophils/100 WBC (Bld)0.0 %Critically low0.2-2.0The [facility] - CincinnatiComment on above:Performed By: #### CBC #### [facility] [address] [place] [address] Dr. Johnna Bustamante #0.0 103/ulNormal0.0-0.7The [facility] - CincinnatiComment on above: Performed By: #### CBC #### [facility] [address] [place] [address] Dr. Johnna Pichardoosinophils/100 WBC (Bld)0.0 %Critically low0.9-7.0The [facility] CincinnatiComment on above:Performed By: #### CBC #### [facility] [address] [place] [address] Dr. Johnna Pichardorythrocyte distribution width (RBC) [Ratio]13.9 %Wibgmg09.0-15.0 The [facility] CincinnatiComment on above:Performed By: #### CBC #### [facility] [address] [place] [address] Dr. Johnna DixonHematocrit (Bld) [Volume fraction]33.6 %Critically low42.0-54.0 The [facility] on above:Performed By: #### CBC #### [facility] [address] [place] [address] Dr. Johnna DixonHemoglobin (Bld) [Mass/Vol]11.1 g/dLCritically low14.0-18.0The [facility] CincinnatiComment on above:Performed By: #### CBC #### [facility] [address] [place] [address] Dr. Johnna Larson #0.03 10e3/ulNormal0.00-0.03The [facility] CincinnatiCommymichigan medical center west branch on above:Performed By: #### CBC #### [facility] [address] [place] [address] Dr. Johnna Larson %0.5 %Normal0.0-0.5The [facility] CincinnatiComment on above: Performed By: #### CBC #### [facility] [address] [place] [address] [address] oJhnna Ruelas #0.7 103/ulCritically low1.2-3.8The [facility] Comment on above:Performed By: #### CBC #### [facility] [address] [place] [address] [address] Johnna Montemayormphocytes/100 WBC (Bld)11.5 %Critically low20.5-60.0The [facility] CincinnatiComment on above:Performed By: #### CBC #### [facility] [address] [place] [address] [address] Johnna Garcia DIFF REQNONormalThe [facility] - CincinnatiComment on above: Performed By: #### CBC #### [facility] [address] [place] [address] Dr. Johnna Marquez (RBC) [Entitic mass]31.0 btGfjork02.9-34.0The [facility] CincinnatiComment on above:Performed By: #### CBC #### [facility] [address] [place] [address] Dr. Johnna Marquez (RBC) [Mass/Vol]33.0 g/sXIamkmq55.9-35.2The [facility] CincinnatiComment on above:Performed By: #### CBC #### [facility] [address] [place] [address] Dr. Johnna Marquez (RBC) [Entitic vol]93.9 vKOrppft18.0-94.0The [facility] CincinnatiComment on above:Performed By: #### CBC #### [facility] [address] [place] [address] Dr. Johnna Vela #0.3 103/ulNormal0.3-0.8The [facility] CincinnatiComment on above:Performed By: #### CBC #### [facility] [address] [place] [address] Dr. Johnna Noocytes/100 WBC (Bld)4.5 %Normal1.7-12.0[facility] Comment on above:Performed By: #### CBC #### [facility] [address] [place] [address] [address] Johnna Kaur #5.0 103/ulNormal1.4-6.5The [facility] CincinnatiComment on above:Performed By: #### CBC #### [facility] [address] [place] [address] [address] Johnna Maurerutrophils/100 WBC (Bld)83.5 %Critically high43.0-75.0The [facility] CincinnatiComment on above:Performed By: #### CBC #### [facility] [address] [place] [address] [address] Johnna DixonPlatelet mean volume (Bld) [Entitic vol]10.3 fLNormal9.5-13.5The [facility] CincinnatiComment on above:Performed By: #### CBC #### [facility] [address] [place] [address] Dr. Johnna DixonPLT184 103/yzEkokjf192-184Cqw [facility] CincinnatiComment on above: Performed By: #### CBC #### [facility] [address] [place] [address] [address] Johnna DixonRBC3.58 106/ulCritically low4.70-6.10The [facility] CincinnatiComment on above:Performed By: #### CBC #### [facility] [address] [place] [address] Dr. Johnna DixonWBC6.0 103/ulNormal4.0-11.0The [facility] CincinnatiComment on above: Performed By: #### CBC #### [facility] [address] [place] [address] Dr. Johnna DixonPROF 14(COMP METB)on 82-24-3017Sudspor [Mass/Vol]2.7 g/dL Critically low3.4-5.0The [facility] CincinnatiComment on above:Performed By: #### CVDTBH #### [facility] [address] [place] [address] Dr. Johnna DixonAlbumin/Globulin [Mass ratio]0.9 {ratio}NormalThe Montville HospitalComment on above:Performed By: #### CVDTBH #### [facility] [address] [address] [address] Johnna Pierce [Catalytic activity/Vol]32 U/LCritically sgf73-887Tey [facility] CincinnatiComment on above:Performed By: #### CVDTBH #### [facility] [address] [address] [address] Johnna Saha [Catalytic activity/Vol]19 U/ZUjhlhq89-13Uaw [facility] CincinnatiComment on above:Performed By: #### CVDTBH #### [facility] [address] [place] [address] Dr. Johnna Hdezon gap [Moles/Vol]14.0 mmol/LNormalThe [facility] Comment on above:Performed By: #### CVDTBH #### [facility] [address] [place] [address] Dr. Johnna DixonAST [Catalytic activity/Vol]12 U/LCritically tfw44-14Xpv [facility] CincinnatiComment on above:Performed By: #### CVDTBH #### [facility] [address] [place] [address] Dr. Johnna DioxnBilirubin [Mass/Vol]0.6 mg/dLNormal0.2-1.0The [facility] Comment on above:Performed By: #### CVDTBH #### [facility] [address] [place] [address] Dr. Johnna DixonCalcium [Mass/Vol]8.3 mg/dLCritically low8.5-10.1[facility] Medical CenterComment on above:Performed By: #### CVDTBH #### [facility] [address] [place] [address] Dr. Johnna DixonChloride [Moles/Vol]107 mmol/OVuwcww25-048Oal [facility] Comment on above:Performed By: #### CVDTBH #### [facility] [address] [place] [address] Dr. Johnna DixonCO2 [Moles/Vol]24.9 mmol/SJsilde52.0-32.0The [facility] Comment on above:Performed By: #### CVDTBH #### [facility] [address] [place] [address] Dr. Johnna DixonCreatinine [Mass/Vol]1.20 mg/dLNormal0.70-1.30The [facility] CincinnatiComment on above:Performed By: #### CVDTBH #### [facility] [address] [place] [address] Dr. Johnna PichardoGFR-AF SOUTH [place]UD[place]>60Normal>=60The [facility] CincinnatiComment on above:Performed By: #### CVDTBH #### [facility] [address] [place] [address] Dr. Johnna PichardoGFR-NON AF RLAIMDUV52 mL/min/1.51y8Fvzwzz>=60The [facility] CincinnatiComment on above:Performed By: #### CVDTBH #### [facility] [address] [place] [address] Dr. Johnna DixonGlobulin (S) [Mass/Vol]2.9 g/dLNormalThe [facility] CincinnatiComment on above:Performed By: #### CVDTBH #### [facility] [address] [place] [address] Dr. Johnna DixonGlucose [Mass/Vol]153 mg/dLCritically pjwn82-105Lpn [facility] CincinnatiComment on above:Performed By: #### CVDTBH #### [facility] [address] [place] [address] Dr. Johnna DixonPotassium [Moles/Vol]3.9 mmol/LNormal3.5-5.1The [facility] Comment on above:Performed By: #### CVDTBH #### [facility] [address] [place] [address] Dr. Johnna DixonProtein [Mass/Vol]5.6 g/dLCritically low6.4-8.2The [facility] CincinnatiComment on above:Performed By: #### CVDTBH #### [facility] [address] [place] [address] Dr. Johnna Calzadadium [Moles/Vol]142 mmol/TVpdful771-032Auc [facility] Comment on above:Performed By: #### CVDTBH #### [facility] [address] [place] [address] Dr. Johnna Gerber nitrogen [Mass/Vol]14.0 mg/dLNormal7.0-18.0The [facility] CincinnatiComment on above:Performed By: #### CVDTBH #### [facility] [address] [place] [address] Dr. Johnna Gerber nitrogen/Creatinine [Mass ratio]11.7 mg/mgNormalThe [facility] CincinnatiComment on above:Performed By: #### CVDTBH #### [facility] [address] [place] [address] Dr. Johnna Lara AUTO DIFFon 64-65-2526YTDT #0.0 103/ulNormal0.0-0.1The [facility] CincinnatiComment on above:Performed By: #### SPUTGS #### [facility] [address] [place] [address] Dr. Johnna DixonBasophils/100 WBC (Bld)0.2 %Normal0.2-2.0[facility] Comment on above:Performed By: #### SPUTGS #### [facility] [address] [place] [address] Dr. Johnna Bustamante #0.0 103/ulNormal0.0-0.7The [facility] CincinnatiComment on above: Performed By: #### SPUTGS #### [facility] [address] [place] [address] Dr. Johnna Pichardoosinophils/100 WBC (Bld)0.2 %Critically low0.9-7.0The [facility] CincinnatiComment on above:Performed By: #### SPUTGS #### [facility] [address] [place] [address] Dr. Johnna Pichardorythrocyte distribution width (RBC) [Ratio]14.1 %Akmmvp04.0-15.0 The [facility] CincinnatiComment on above:Performed By: #### SPUTGS #### [facility] [address] [place] [address] Dr. Johnna DixonHematocrit (Bld) [Volume fraction]39.9 %Critically low42.0-54.0 The [facility] CincinnatiComment on above:Performed By: #### SPUTGS #### [facility] [address] [place] [address] Dr. Johnna DixonHemoglobin (Bld) [Mass/Vol]12.8 g/dLCritically low14.0-18.0The [facility] CincinnatiComment on above:Performed By: #### SPUTGS #### [facility] [address] [place] [address] Dr. Johnna Larson #0.01 10e3/ulNormal0.00-0.03The [facility] CincinnatiComment on above:Performed By: #### SPUTGS #### [facility] [address] [place] [address] Dr. Johnna Larson %0.2 %Normal0.0-0.5The [facility] CincinnatiComment on above: Performed By: #### SPUTGS #### [facility] [address] [place] [address] Dr. Johnna Ruelas #0.7 103/ulCritically low1.2-3.8The [facility] Comment on above:Performed By: #### SPUTGS #### [facility] [address] [place] [address] Dr. Johnna Montemayormphocytes/100 WBC (Bld)14.3 %Critically low20.5-60.0The [facility] CincinnatiComment on above:Performed By: #### SPUTGS #### [facility] [address] [place] [address] Dr. Johnna OswaldUAL DIFF REQNONormalThe [facility] CincinnatiComment on above: Performed By: #### SPUTGS #### [facility] [address] [place] [address] Dr. Johnna Khan (RBC) [Entitic mass]30.7 fdBicjwf89.9-34.0The Montville HospitalComment on above:Performed By: #### SPUTGS #### [facility] [address] [place] [address] Dr. Johnna Marquez (RBC) [Mass/Vol]32.1 g/dMBjqvqw14.9-35.2The [facility] CincinnatiComment on above:Performed By: #### SPUTGS #### [facility] [address] [place] [address] Dr. Johnna Stiles (RBC) [Entitic vol]95.7 fLCritically high80.0-94.0The [facility] CincinnatiComment on above:Performed By: #### SPUTGS #### [facility] [address] [place] [address] Dr. Johnna Vela #0.6 103/ulNormal0.3-0.8The [facility] CincinnatiComment on above:Performed By: #### SPUTGS #### [facility] [address] [place] [address] Dr. Johnna Noocytes/100 WBC (Bld)12.5 %Critically high1.7-12.0The [facility] CincinnatiComment on above:Performed By: #### SPUTGS #### [facility] [address] [place] [address] Dr. Johnna Kaur #3.6 103/ulNormal1.4-6.5The [facility] CincinnatiComment on above:Performed By: #### SPUTGS #### [facility] [address] [place] [address] Dr. Johnna Maurerutrophils/100 WBC (Bld)72.6 %Anixvu17.0-75.0The [facility] CincinnatiComment on above:Performed By: #### SPUTGS #### [facility] [address] [place] [address] Dr. Johnna Voss mean volume (Bld) [Entitic vol]9.5 fLNormal9.5-13.5The [facility] CincinnatiComment on above:Performed By: #### SPUTGS #### [facility] [address] [place] [address] Dr. Johnna DixonPLT213 103/jbTagcrh967-575Mfa [facility] CincinnatiComment on above: Performed By: #### SPUTGS #### [facility] [address] [place] [address] Dr. Johnna DixonRBC4.17 106/ulCritically low4.70-6.10The [facility] CincinnatiComment on above:Performed By: #### SPUTGS #### [facility] [address] [place] [address] Dr. Johnna DixonWBC5.0 103/ulNormal4.0-11.0The [facility] CincinnatiComment on above: Performed By: #### SPUTGS #### [facility] [address] [place] [address] Dr. Johnna Mitchell BLOODon 76-68-0356Rycklgnklzs examination of blood, cultureCulture Observations: NO GROWTH AT 5 DAYS.NormalThe [facility] CincinnatiComment on above:Performed By: #### BLDCX2 #### [facility] [address] [place] [address] Dr. Johnna DixonMicroscopic examination of blood, cultureCulture Observations: NO GROWTH AT 5 DAYS.NormalThe [facility] CincinnatiComment on above:Performed By: #### SPUTGS #### [facility] [address] [place] [address] Dr. Johnna Mitchell SPUTUMon 26-66-1835WUENPXY SPUTUMCulture Observations: NORMAL RESPIRATORY JONATAN.NormalThe [facility] CincinnatiComment on above:Performed By: #### SPUTGS #### [facility] [address] [place] [address] Dr. Johnna DixonCovid-19 PCR (CVDTB)on [id number]-CoV-2 (COVID-19) RNA REX+probe Ql (Unsp spec)Not detectedNormalNOT DETECTEDThe [facility] Comment on above:Result Comment: This test is not yet approved or cleared by the [place] FDA. When there are no FDA-approved or cleared tests available, and other criteria are met, FDA can make tests available under an emergency access mechanism called an Emergency Use Authorization (EUA). The EUA for this test is supported by the [place] of Health and Human Service's (HHS's) declaration [...] consistent with SARS-CoV-2.Performed By: #### CVDTBH #### [facility] [address] [place] [address] Dr. Johnna DixonLACTATE/LACTIC ACIDon [id number] [Moles/Vol]1.2 mmol/L Normal0.4-2.0[facility] Medical CenterComment on above:Performed By: #### LACT #### [facility] [address] [place] [address] Dr. Johnna DixonLactate [Moles/Vol]2.4 mmol/LCritically high0.4-2.0[facility] CenterComment on above:Performed By: #### LACT #### [facility] [address] [place] [address] Dr. Johnna DixonPROF CHEM 8 (BAS METB)on 98-35-8049Rteyd gap [Moles/Vol]12.6 mmol/LNormalUniversity Hospitals Elyria Medical CenterComment on above:Performed By: #### BMP #### [facility] [address] [place] [address] Dr. Johnna DixonCalcium [Mass/Vol]8.9 mg/dLNormal8.5-10.1[facility] Comment on above:Performed By: #### BMP #### [facility] [address] [place] [address] Dr. Johnna DixonChloride [Moles/Vol]106 mmol/KNiavcw95-417Ouo [facility] Comment on above:Performed By: #### BMP #### [facility] [address] [address] [address] Johnna DixonCO2 [Moles/Vol]25.8 mmol/AMgaytf36.0-32.0The [facility] Comment on above:Performed By: #### BMP #### [facility] [address] [address] [address] Johnna DixonCreatinine [Mass/Vol]1.41 mg/dLCritically high0.70-1.30The [facility] CincinnatiComment on above:Performed By: #### BMP #### [facility] [address] [address] [address] Oropeza ChangEGFR-AF SOUTH [place]UDAN[place]>60Normal>=60The [facility] CincinnatiComment on above:Performed By: #### BMP #### [facility] [address] [address] [address] Johnna PichardoGFR-NON AF XXODEMGA53 mL/min/1.40n7Fvzjvmbdgb low>=60The [facility] CincinnatiComment on above:Performed By: #### BMP #### [facility] [address] [address] [address] Johnna DixonGlucose [Mass/Vol]111 mg/dLCritically kuqe14-540Teo [facility] CincinnatiComment on above:Performed By: #### BMP #### [facility] [address] [address] [address] Johnna DixonPotassium [Moles/Vol]3.4 mmol/LCritically low3.5-5.1The [facility] CincinnatiComment on above:Performed By: #### BMP #### [facility] [address] [address] [address] Johnna DixonSodium [Moles/Vol]141 mmol/DYemprg629-569Uzp [facility] Comment on above:Performed By: #### BMP #### [facility] [address] [address] [address] Johnna DixonUrea nitrogen [Mass/Vol]17.0 mg/dLNormal7.0-18.0The [facility]ba HospitalComment on above:Performed By: #### BMP #### [facility] [address] [address] [address] Johnna Gerber nitrogen/Creatinine [Mass ratio]12.1 mg/mgWVUMedicine Barnesville HospitalComment on above:Performed By: #### BMP #### [facility] [address] [address] [address] Johnna RodriguezUTUM GRAM STAINon 66-12-9874AMJPGQDLMvodqeOyoWhite Hospital on above:Performed By: #### SPUTGS #### [facility] [address] [address] [address] Johnna GreenPHTHEROIDSWVUMedicine Barnesville HospitalComment on above:Performed By: #### SPUTGS #### [facility] [address] [address] [address] Johnna PichardoPITHELIALS<25WVUMedicine Barnesville HospitalComment on above: Performed By: #### SPUTGS #### [facility] [address] [address] [address] Johnna DixonFUNGAL ELEMENTSWVUMedicine Barnesville HospitalComment on above: Performed By: #### SPUTGS #### [facility] [address] [address] [address] Johnna Stover NEG BACILLIFEThe MetroHealth SystemComment on above: Performed By: #### SPUTGS #### [facility] [address] [address] [address] Johnna Stover NEG DIPPLOCOCCIUniversity Hospitals Conneaut Medical Center HospitalComment on above: Performed By: #### SPUTGS #### [facility] [address] [address] [address] Johnna Stover POS BACILLIWVUMedicine Barnesville HospitalComment on above: Performed By: #### SPUTGS #### [facility] [address] [address] [address] Johnna Stover POSITIVE COCCIFEThe Metro[facility] SystemComment on above:Performed By: #### SPUTGS #### [facility] [address] [place] [address] Dr. Johnna DixonWBC (Bld) [#/Vol]10*3/uLNormBarnesville HospitalComment on above:Performed By: #### SPUTGS #### [facility] [address] [place] [address] Dr. Johnna DixonSYMPTOMATIC COVID-19 ANTIGENon [id number] StatementSEE BELOW NormalThe [facility] CincinnatiCommymichigan medical center west branch on above:Result Comment: This test has not [...] is revoked sooner.Performed By: #### CVDAGS #### [facility] [address] [place] [address] Dr. Johnna Paez-CoV-2 (COVID-19) RNA REX+probe Ql (Unsp spec)NegativeNormal NEGATIVEThe [facility] CincinnatiComment on above:Performed By: #### CVDAGS #### [facility] [address] [place] [address] Dr. Johnna DixonXR CHEST 1 Von 35-52-7450VW CHEST 1 VEXAMINATION: XR CHEST 1 V [...] Electronically authenticated by: SOCORRO SERRANO Date: 2022-10-05 11:44NoNewark HospitalUS SINGLE QUAD RT UPPERon [id number] SINGLE QUAD RT UPPER EXAM: US SINGLE [...] Electronically authenticated by: SOCORRO HUFFMAN Date: 2022-09-24 09:46NoNewark HospitalAMYLASEon 31-84-5941Doyqrmc [Catalytic activity/Vol]78 U/L Cwhhui40-569Lnj [facility] CincinnatiComment on above:Performed By: #### CVDTBH #### [facility] [address] [address] [address] Johnna Lara AUTO DIFFon [id number] #0.0 103/ulNormal0.0-0.1The [facility] CincinnatiComment on above:Performed By: #### CVDTBH #### [facility] [address] [address] [address] Johnna Parrsophils/100 WBC (Bld)0.5 %Normal0.2-2.0The [facility] Comment on above:Performed By: #### CVDTBH #### [facility] [address] [address] [address] Johnna Bustamante #0.1 103/ulNormal0.0-0.7The [facility] CincinnatiComment on above: Performed By: #### CVDTBH #### [facility] [address] [place] [address] Dr. Johnna Pichardoosinophils/100 WBC (Bld)1.9 %Normal0.9-7.0[facility] Comment on above:Performed By: #### CVDTBH #### [facility] [address] [place] [address] Dr. Johnna Pichardorythrocyte distribution width (RBC) [Ratio]14.5 %Nkdqnq66.0-15.0 The [facility] CincinnatiComment on above:Performed By: #### CVDTBH #### [facility] [address] [place] [address] Dr. Johnna DixonHematocrit (Bld) [Volume fraction]39.1 %Critically low42.0-54.0 [facility] CenterComment on above:Performed By: #### CVDTBH #### [facility] [address] [place] [address] Dr. Johnna DixonHemoglobin (Bld) [Mass/Vol]12.8 g/dLCritically low14.0-18.0[facility] CenterComment on above:Performed By: #### CVDTBH #### [facility] [address] [place] [address] Dr. Johnna Larson #0.05 10e3/ulCritically high0.00-0.03The [facility] Comment on above:Performed By: #### CVDTBH #### [facility] [address] [place] [address] Dr. Johnna Larson %0.7 %Critically high0.0-0.5ThFostoria City HospitalComment on above:Performed By: #### CVDTBH #### [facility] [address] [place] [address] Dr. Johnna LakeH #2.0 103/ulNormal1.2-3.8The [facility] CincinnatiComment on above:Performed By: #### CVDTBH #### [facility] [address] [place] [address] Dr. Johnna Monteamyormphocytes/100 WBC (Bld)27.4 %Zffbhh36.5-60.0The [facility] CincinnatiComment on above:Performed By: #### CVDTBH #### [facility] [address] [place] [address] Dr. Johnna OswaldUAL DIFF REQNONormalThe [facility] CincinnatiComment on above: Performed By: #### CVDTBH #### [facility] [address] [place] [address] Dr. Johnna Marquez (RBC) [Entitic mass]31.3 twPnycns03.9-34.0The [facility] CincinnatiComment on above:Performed By: #### CVDTBH #### [facility] [address] [place] [address] Dr. Johnna Marquez (RBC) [Mass/Vol]32.7 g/vNZolmiw91.9-35.2The [facility] CincinnatiComment on above:Performed By: #### CVDTBH #### [facility] [address] [place] [address] Dr. Johnna Marquez (RBC) [Entitic vol]95.6 fLCritically high80.0-94.0The [facility] CincinnatiComment on above:Performed By: #### CVDTBH #### [facility] [address] [place] [address] Dr. Johnna Vela #0.5 103/ulNormal0.3-0.8The [facility] CincinnatiComment on above:Performed By: #### CVDTBH #### [facility] [address] [place] [address] Dr. Johnna Noocytes/100 WBC (Bld)6.9 %Normal1.7-12.0The [facility] Comment on above:Performed By: #### CVDTBH #### [facility] [address] [place] [address] Dr. Johnna Kaur #4.7 103/ulNormal1.4-6.5The [facility] HospitalComment on above:Performed By: #### CVDTBH #### [facility] [address] [place] [address] Dr. Johnna DixonNeutrophils/100 WBC (Bld)62.6 %Cuanmx40.0-75.0The [facility] CincinnatiComment on above:Performed By: #### CVDTBH #### [facility] [address] [place] [address] Dr. Johnna DixonPlatelet mean volume (Bld) [Entitic vol]9.3 fLCritically low 9.5-13.5The [facility] CincinnatiComment on above:Performed By: #### CVDTBH #### [facility] [address] [place] [address] Dr. Johnna DixonPLT235 103/zyQniovj853-817Ddj [facility] CincinnatiComment on above: Performed By: #### CVDTBH #### [facility] [address] [place] [address] Dr. Johnna DixonRBC4.09 106/ulCritically low4.70-6.10The [facility] CincinnatiComment on above:Performed By: #### CVDTBH #### [facility] [address] [place] [address] Dr. Johnna DixonWBC7.4 103/ulNormal4.0-11.0The [facility] CincinnatiComment on above: Performed By: #### CVDTBH #### [facility] [address] [place] [address] Dr. Johnna DixonLIPASEleanne 68-70-0518Gpfmnb [Catalytic activity/Vol]114.0 U/LNormal 73.0-393.0The [facility] - CincinnatiComment on above:Performed By: #### CVDAGS #### [facility] [address] [place] [address] Dr. Johnna Hernandez PROFILEleanne 81-05-2973Muxumaq [Mass/Vol]3.9 g/dLNormal3.4-5.0 The [facility] - CincinnatiComment on above:Performed By: #### CVDTBH #### [facility] [address] [address] [address] Johnna DixonAlbumin/Globulin [Mass ratio]1.6 {ratio}NormalThe [facility] Hospital - CincinnatiComment on above:Performed By: #### CVDTBH #### [facility] [address] [address] [address] Johnna BarneyP [Catalytic activity/Vol]59 U/GJyghdf78-279Riu [facility] - CincinnatiComment on above:Performed By: #### CVDTBH #### [facility] [address] [address] [address] Johnna BarneyT [Catalytic activity/Vol]23 U/ZSsxeys69-58Alv [facility] CincinnatiComment on above:Performed By: #### CVDTBH #### [facility] [address] [place] [address] Dr. Johnna DixonAST [Catalytic activity/Vol]8 U/LCritically hgz03-24Jxk [facility] CincinnatiCommymichigan [facility] on above:Performed By: #### CVDTBH #### [facility] [address] [place] [address] Dr. Johnna ArboledaI, CONJUGATED0.1 mg/dLNormal0.0-0.2The [facility] Comment on above:Performed By: #### CVDTBH #### [facility] [address] [place] [address] Dr. Johnna Arboledairubin [Mass/Vol]0.3 mg/dLNormal0.2-1.0The [facility] Comment on above:Performed By: #### CVDTBH #### [facility] [address] [place] [address] Dr. Johnna DixonGlobulin (S) [Mass/Vol]2.5 g/dLNormalThe [facility] CincinnatiComment on above:Performed By: #### CVDTBH #### [facility] [address] [place] [address] Dr. Johnna DixonProtein [Mass/Vol]6.4 g/dLNormal6.4-8.2The [facility] Comment on above:Performed By: #### CVDTBH #### [facility] [address] [address] [address] Johnna DixonPROF CHEM 8 (BAS METB)on 34-10-5894Qvbee gap [Moles/Vol]13.4 mmol/LNormalUniversity Hospitals Elyria Medical CenterComment on above:Performed By: #### CVDTBH #### [facility] [address] [address] [address] Johnna DixonCalcium [Mass/Vol]8.9 mg/dLNormal8.5-10.1The [facility] Comment on above:Performed By: #### CVDTBH #### [facility] [address] [place] [address] Dr. Johnna DixonChloride [Moles/Vol]106 mmol/VNowmqz28-730Gmk [facility] Comment on above:Performed By: #### CVDTBH #### [facility] [address] [place] [address] Dr. Johnna DixonCO2 [Moles/Vol]25.6 mmol/TIcxhjy63.0-32.0[facility] Comment on above:Performed By: #### CVDTBH #### [facility] [address] [place] [address] Dr. Johnna DixonCreatinine [Mass/Vol]1.21 mg/dLNormal0.70-1.30The [facility] - CincinnatiComment on above:Performed By: #### CVDTBH #### [facility] [address] [place] [address] Dr. Johnna PichardoGFR-AF SOUTH [place]UD[place]>60Normal>=60The [facility] - CincinnatiComment on above:Performed By: #### CVDTBH #### [facility] [address] [place] [address] Dr. Johnna PichardoGFR-NON AF AOEKNUHF73 mL/min/1.87s2Imosjsmvef low>=60The [facility] CincinnatiComment on above:Performed By: #### CVDTBH #### [facility] [address] [place] [address] Dr. Johnna DixonGlucose [Mass/Vol]115 mg/dLCritically eagn58-392Kzt [facility] CincinnatiComment on above:Performed By: #### CVDTBH #### [facility] [address] [address] [address] Johnna DixonPotassium [Moles/Vol]4.0 mmol/LNormal3.5-5.1The [facility] Comment on above:Performed By: #### CVDTBH #### [facility] [address] [place] [address] Dr. Johnna DixonSodium [Moles/Vol]141 mmol/EJcqbgt653-823Wrw [facility] Comment on above:Performed By: #### CVDTBH #### [facility] [address] [place] [address] Dr. Johnna DixonUrea nitrogen [Mass/Vol]19.0 mg/dLCritically high7.0-18.0[facility] Elyria Medical CenterComment on above:Performed By: #### CVDTBH #### [facility] [address] [place] [address] Dr. Johnna Gerber nitrogen/Creatinine [Mass ratio]15.7 mg/mgNormalThe [facility] - CincinnatiComment on above:Performed By: #### CVDTBH #### [facility] [address] [place] [address] Dr. Johnna Ricardo 98-29-7327Jgudjcvcom [Mass/Vol]1.31 mg/dLCritically high0.70-1.30The [facility] - CincinnatiComment on above:Performed By: #### CREA #### [facility] [address] [place] [address] Dr. Johnna PichardoGFR-AF SOU[place]>60Normal>=60The [facility] - CincinnatiComment on above:Performed By: #### CREA #### [facility] [address] [place] [address] Dr. Johnna PichardoGFR-NON AF AIMGNJQR62 mL/min/1.09g1Oprknmbxki low>=60[facility]ria Medical CenterComment on above:Performed By: #### CREA #### [facility] [address] [place] [address] Dr. Johnna Russo 60-86-7000RXR NECK WO W CONEXAMINATION: CTA NECK WO [...] Electronically authenticated by: ALLI CORTES Date: 2022-08-04 14:04[facility] CAROTID ART BILon [id number] CAROTID ART BILEXAMINATION: US CAROTID ART SREEKANTH [...] Electronically authenticated by: ALLI CORTES Date: 2022-07-28 12:00[facility] HospitalXR KNEE RT 4V or >on 48-80-5868AO KNEE RT 4V or >EXAM: XR KNEE RT 4V or > HISTORY: Pain of right knee joint COMPARISON: None. TECHNIQUE: 4 views of the right knee were obtained. FINDINGS/IMPRESSION: 1. There is no evidence of acute fracture or subluxation. 2. Mild tricompartmental osteoarthritis is seen as demonstrated by joint space narrowing with marginal spurring. 3. Chondrocalcinosis. Electronically authenticated by: DEBORAH ZARAGOZA Date: 2022-06-30 17:38NoNewark HospitalXR RIBS RT PA Fab [id number] RIBS RT PA CHEXAMINATION: XR RIBS RT [...] Electronically authenticated by: SOCORRO SERRANO Date: 2022-05-25 14:51NoNewark HospitalXR RIBS RT PA Fab [id number] RIBS RT PA CH Begin Addendum #1 [...] with right basilar atelectasis and small pleural effusionWVUMedicine Barnesville HospitalCT CHEST WO CONon 34-87-1521RK CHEST WO CONCT CHEST WO CON CLINICAL: [...] Electronically authenticated by: SOCORRO BANSAL Date: 2022-04-18 16:17NoNewark HospitalCULTURE URINEon [id number] URINECulture Observations: NO GROWTH.NormalThe [facility] Hospital - CincinnatiComment on above:Performed By: #### SPUTGS #### [facility] [address] [address] [address] Johnna Elena-Leeanne Positive/NegativeOrdered By: Lionel Whitney on 08-86-3096TXSC-CoV-2 (COVID-19) N gene REX+probe Ql (Resp)NegativeNegative [facility] CenterComment on above:Testing for SARS-CoV-2 by RT-PCR This test was developed and its performance characteristics determined by [employer] ([employer]) and validated at the [facility]. This test has not been [...] Whitney on 02-06-2022 aPTT Coag (PPP) [Time]34.8 s25.1-36.5FKettering Health HamiltonBasophils Auto (Bld) [#/Vol]Ordered By: Lionel Whitney on 19-71-4859Nxjjubjcl (Bld) [#/Vol]0.0 10*3/uL0.0-0.2FKettering Health HamiltonBasophils/100 WBC Auto (Bld)Ordered By: Lionel Whitney on 88-28-9552Zeaohbmiy/100 WBC (Bld)0.8 %. [facility] CenterBlood hemoglobin measurement (mass/volume) Ordered By: Lionle Whitney on 87-77-9480Bgbkhuywbc (Bld) [Mass/Vol]13.2 g/dL 13.0-17.0[facility] CenterBlood leukocytes automated count (number/volume)Ordered By: Lionel Whitney on 94-00-5545BEP (Bld) [#/Vol]5.7 10*3/uL4.5-11.0[facility] CenterCreatinine and Glomerular filtration rate.predicted panel (S/P/Bld)Ordered By: Lionel Whitney on 94-62-8448Ijjbqxfrmv [Mass/Vol]1.21 mg/dL0.64-1.27The [facility] CenterEosinophils Auto (Bld) [#/Vol]Ordered By: Lionel Whitney on 02-06-2022 Eosinophils (Bld) [#/Vol]0.1 10*3/uL0.0-0.45[facility] Eosinophils/100 WBC Auto (Bld)Ordered By: Lionel Whitney on 02-06-2022 Eosinophils/100 WBC (Bld)1.7 %.[facility] CenterErythrocyte distribution width Auto (RBC) [Ratio]Ordered By: Lionel Whitney on 02-06-2022 Erythrocyte distribution width (RBC) [Ratio]14.2 %12.0-14.8The [facility] CenterEstimated glomerular filtration rate (GFR) non- Ordered By: Lionel Whitney on 59-36-8829IUP/1.73 sq M.predicted among non-blacks MDRD (S/P/Bld) [Vol rate/Area]59 mL/MinThe [facility] Center Hematocrit Auto (Bld) [Volume fraction]Ordered By: Lionel Whitney on 02-06-2022 Hematocrit (Bld) [Volume fraction]40.8 %38.8-50.0[facility] CenterLaboratory - CoagulationOrdered By: Lionel Whitney on 69-25-2659NR Coag (PPP) [Time]11.0 s9.0-12.9[facility] CenterLaboratory - Hematology and Cell countsOrdered By: Lionel Whitney on 41-88-6977Wbswmocsj RBC/100 WBC (Bld) [Ratio]0.1 %0-0.5FKettering Health HamiltonLymphocytes Auto (Bld) [#/Vol]Ordered By: Lionel Whitney on 04-11-6247Jykjaaibqbk (Bld) [#/Vol]1.6 10*3/uL1.00-4.8The [facility] CenterLymphocytes/100 WBC Auto (Bld)Ordered By: Lionel Whitney on 88-18-3701Woehuuqeplg/100 WBC (Bld)27.4 %.[facility] CenterMCH Auto (RBC) [Entitic mass]Ordered By: Lionel Whitney on 00-59-5704RMI (RBC) [Entitic mass]29.7 pg27.5-35.2FKettering Health HamiltonMCHC Auto (RBC) [Mass/Vol]Ordered By: Lionel Whitney on 40-82-7593YNUI (RBC) [Mass/Vol]32.4 g/dL32.5-35.6FKettering Health HamiltonMCV Auto (RBC) [Entitic vol]Ordered By: Lionel Whitney on 32-88-3749PEN (RBC) [Entitic vol]91.6 fL83.5-101The [facility] CenterMonocytes Auto (Bld) [#/Vol]Ordered By: Lionel Whitney on 13-54-6567Lkfhjqwls (Bld) [#/Vol]0.5 10*3/uL0.0-0.8The [facility] CenterMonocytes/100 WBC Auto (Bld)Ordered By: Lionel Whitney on 97-38-5373Xpmnesvyp/100 WBC (Bld)8.7 %. [facility] CenterNeutrophils Auto (Bld) [#/Vol]Ordered By: Lionel Whitney on 70-64-7082Bsxvoivthpc (Bld) [#/Vol]3.5 10*3/uL1.8-7.7FKettering Health HamiltonNeutrophils/100 WBC Auto (Bld)Ordered By: Lionel Whitney on 50-01-3294Wpysijbycec/100 WBC (Bld)61.4 %.[facility] No Panel InformationOrdered By: Lionel Whitney on 04-57-7968Dgpjndkup GFR ()> 60 mL/MinThe University [facility] Toledo Medical CenterComment on above: GFR estimated reference range: According to KDOQI guidelines, <60 ml/min/1.73m2 is sufficient todiagnose a patient with chronic kidney disease.Pharmacy Creatinine Clearance (ChemN/AFKettering Health HamiltonPlatelet mean volume Auto (Bld) [Entitic vol]Ordered By: Lionel Whitney on 96-84-9081Nuphftcw mean volume (Bld) [Entitic vol]8.4 fL6.6-10.1FKettering Health Hamilton Platelet poor plasma international normalized ratio (INR) by coagulation assay (relatOrdered By: Lionel Whitney on 55-23-6122RMP Coag (PPP) [Relative time]1.0 {INR}[facility] CenterComment on above:INR Therapeutic Range A) Pre- and [...] Auto (Bld) [#/Vol]Ordered By: Lionel Whitney on 26-62-7021Mlugizgjj (Bld) [#/Vol]248 10*3/rB536-559RdkurugtxThe University Of Toledo Medical CenterRBC Auto (Bld) [#/Vol]Ordered By: Lionel Whitney on 84-69-0159SDL (Bld) [#/Vol]4.45 10*6/uL3.90-5.60Mansfield Hospitalerum or plasma calcium measurement (mass/volume)Ordered By: Lionel Whitney on 71-77-5948Kdmhfre [Mass/Vol]9.7 mg/dL8.2-10.2FLakeHealth Beachwood Medical Centererum or plasma chloride measurement (moles/volume) Ordered By: Lionel Whitney on 10-34-9811Mbzjpldv [Moles/Vol]99 mmol/L95-114 Mansfield Hospitalerum or plasma glucose measurement (mass/volume)Ordered By: Lionel Whitney on 29-49-2813Hvuaqpc [Mass/Vol]99 mg/dL 70-100The [facility] CenterComment on above:ADA recommended reference range Random Glucose Reference Range is dependent on time and content of last meal. Glucose of more than 200 mg/dL in a nonstressed, ambulatory subject supports the diagnosis of Diabetes Mellitus.Serum or plasma potassium measurement (moles/volume)Ordered By: Lionel Whitney on 80-12-6044Nuknctarz [Moles/Vol]4.4 mmol/L3.5-5.1FLakeHealth Beachwood Medical Centererum or plasma sodium measurement (moles/volume)Ordered By: Lionel Whitney on 85-69-2687Sbdhbj [Moles/Vol]135 mmol/S600-010OrgnirnvnMansfield Hospitalerum or plasma total carbon dioxide measurement (moles/volume)Ordered By: Lionel Whitney on 55-25-5681PD9 [Moles/Vol]26.2 mmol/L22.0-30.0Mansfield Hospitalerum or plasma urea nitrogen measurement (mass/volume)Ordered By: Lionel Whitney on 02-06-2022 Urea nitrogen [Mass/Vol]20 mg/dL9-23The [facility] CenterCOVID-19 Positive/NegativeOrdered By: Lionel Whitney on 11-56-9482IANS-CoV-2 (COVID-19) N gene REX+probe Ql (Resp)NegativeNegativeThe [facility] Comment on above:Testing for SARS-CoV-2 by RT-PCR This test was developed and its performance characteristics determined by [employer] ([employer]) and validated at the [facility]. This test has not been [...] Whitney on 10-17-2021 aPTT Coag (PPP) [Time]36.2 s25.1-36.5FKettering Health HamiltonBasophils Auto (Bld) [#/Vol]Ordered By: Lionel Whitney on 06-84-6781Mkyqmjhww (Bld) [#/Vol]0.0 10*3/uL0.0-0.2FKettering Health HamiltonBasophils/100 WBC Auto (Bld)Ordered By: Lionel Whitney on 28-40-0829Hcwndibyp/100 WBC (Bld)0.6 % [facility] CenterBlood hemoglobin measurement (mass/volume) Ordered By: Lionel Whitney on 99-58-9882Egakuwbwwv (Bld) [Mass/Vol]13.6 g/dL 13.0-17.0[facility] CenterBlood leukocytes automated count (number/volume)Ordered By: Lionel Whitney on 15-25-6829KKK (Bld) [#/Vol]5.9 10*3/uL4.5-11.0[facility] CenterCreatinine and Glomerular filtration rate.predicted panel (S/P/Bld)Ordered By: Lionel Whitney on 08-23-4520Gauhsvyguw [Mass/Vol]0.96 mg/dL0.64-1.27The [facility] CenterEosinophils Auto (Bld) [#/Vol]Ordered By: Lionel Whitney on 10-17-2021 Eosinophils (Bld) [#/Vol]0.1 10*3/uL0.0-0.45[facility] Eosinophils/100 WBC Auto (Bld)Ordered By: Lionel Whitney on 10-17-2021 Eosinophils/100 WBC (Bld)2.0 %[facility] CenterErythrocyte distribution width Auto (RBC) [Ratio]Ordered By: Lionel Whitney on 10-17-2021 Erythrocyte distribution width (RBC) [Ratio]14.5 %12.0-14.8[facility] CenterEstimated glomerular filtration rate (GFR) non- Ordered By: Lionel Whitney on 46-99-8545ZUD/1.73 sq M.predicted among non-blacks MDRD (S/P/Bld) [Vol rate/Area]> 60 mL/MinThe [facility] Center Hematocrit Auto (Bld) [Volume fraction]Ordered By: Lionel Whitney on 10-17-2021 Hematocrit (Bld) [Volume fraction]41.5 %38.8-50.0[facility] CenterLaboratory - CoagulationOrdered By: Lionel Whitney on 33-76-7273CL Coag (PPP) [Time]11.0 s9.0-12.9[facility] CenterLaboratory - Hematology and Cell countsOrdered By: Lionel Whitney on 03-19-1664Tvwzlphaz RBC/100 WBC (Bld) [Ratio]0.0 %0-0.5FKettering Health HamiltonLymphocytes Auto (Bld) [#/Vol]Ordered By: Lionel Whitney on 37-08-9362Pbyehvevhou (Bld) [#/Vol]1.6 10*3/uL1.00-4.8The [facility] CenterLymphocytes/100 WBC Auto (Bld)Ordered By: Lionel Whitney on 84-62-0600Gkxmcjdeoac/100 WBC (Bld)26.8 %[facility] Auto (RBC) [Entitic mass]Ordered By: Lionel Whitney on 41-77-0661IIO (RBC) [Entitic mass]29.3 pg27.5-35.2FKettering Health HamiltonMCHC Auto (RBC) [Mass/Vol]Ordered By: Lionel Whitney on 15-57-3687WBGU (RBC) [Mass/Vol]32.7 g/dL32.5-35.6FKettering Health HamiltonMCV Auto (RBC) [Entitic vol]Ordered By: Lionel Whitney on 98-12-1693NSG (RBC) [Entitic vol]89.8 fL83.5-101The [facility] CenterMonocytes Auto (Bld) [#/Vol]Ordered By: Lionel Whitney on 05-50-1807Ublmsukiw (Bld) [#/Vol]0.6 10*3/uL0.0-0.8[facility] CenterMonocytes/100 WBC Auto (Bld)Ordered By: Lionel Whitney on 72-43-0744Pwipsexqa/100 WBC (Bld)10.6 % [facility] CenterNeutrophils Auto (Bld) [#/Vol]Ordered By: Lionel Whitney on 07-04-2274Hhiyrbljqae (Bld) [#/Vol]3.5 10*3/uL1.8-7.7FKettering Health HamiltonNeutrophils/100 WBC Auto (Bld)Ordered By: Lionel Whitney on 25-55-5829Oasltkeuddd/100 WBC (Bld)60.0 %[facility] CenterNo Panel InformationOrdered By: Lionel Whitney on 61-60-4240Rivfsypod GFR ()> 60 mL/MinThe [facility] Medical CenterComment on above:GFR estimated reference range: According to KDOQI guidelines, <60 ml/min/1.73m2 is sufficient todiagnose a patient with chronic kidney disease.Pharmacy Creatinine Clearance (ChemN/AFKettering Health HamiltonPlatelet mean volume Auto (Bld) [Entitic vol]Ordered By: Lionel Whitney on 38-01-9388Mvewbsnj mean volume (Bld) [Entitic vol]8.3 fL6.6-10.1FKettering Health HamiltonPlatelet poor plasma international normalized ratio (INR) by coagulation assay (relatOrdered By: Lionel Whitney on 21-73-8071NVX Coag (PPP) [Relative time]1.0 {INR}[facility] CenterComment on above:INR Therapeutic Range A) Pre- and [...] Auto (Bld) [#/Vol]Ordered By: Lionel Whitney on 94-18-8216Iltfqdhue (Bld) [#/Vol]249 10*3/eZ614-952QhnfbqosaThe University Of Toledo Medical CenterRBC Auto (Bld) [#/Vol]Ordered By: Lionel Whitney on 43-96-1422WBE (Bld) [#/Vol]4.62 10*6/uL3.90-5.60M[facility]field Hospitalerum or plasma calcium measurement (mass/volume)Ordered By: Lionel Whitney on 03-82-1192Tnmdzee [Mass/Vol]9.7 mg/dL8.2-10.2FLakeHealth Beachwood Medical Centererum or plasma chloride measurement (moles/volume) Ordered By: Lionel Whitney on 60-61-1463Jghfytjx [Moles/Vol]101 mmol/L95-114 [facility] Hospitalerum or plasma glucose measurement (mass/volume)Ordered By: Lionel Whitney on 41-06-1054Sbfrydh [Mass/Vol]87 mg/dL 70-100The [facility] CenterComment on above:ADA recommended reference range Random Glucose Reference Range is dependent on time and content of last meal. Glucose of more than 200 mg/dL in a nonstressed, ambulatory subject supports the diagnosis of Diabetes Mellitus.Serum or plasma potassium measurement (moles/volume)Ordered By: Lionel Whitney on 50-04-6222Vlcfytnwp [Moles/Vol]4.4 mmol/L3.5-5.1FLakeHealth Beachwood Medical Centererum or plasma sodium measurement (moles/volume)Ordered By: Lionel Whitney on 19-70-8150Mafpfj [Moles/Vol]136 mmol/N526-944NpkklexgnMansfield Hospitalerum or plasma total carbon dioxide measurement (moles/volume)Ordered By: Lionel Whitney on 33-09-0085TW2 [Moles/Vol]25.6 mmol/L22.0-30.0M[facility]field Hospitalerum or plasma urea nitrogen measurement (mass/volume)Ordered By: Lionel Whitney on 10-17-2021 Urea nitrogen [Mass/Vol]18 mg/dL9-23[facility] Vital Signs Date TimeVital SignValuePerforming PahfpfkvtZdqmyksy87-48-1622 13:26-0400Body gpqsxtayhkn39.7 [degF]Norberto Andrade MD Work Phone: cC[facility] ClinicXbjybp09-10-5606 13:26-0400Body tdtimt26.4 kgAdaveronica Andrade MD Work Phone: cC[facility] ClinicLhueah46-04-3882 13:26-0400Diastolic blood ukmvbbwx85 mm[Hg]Norberto Andrade MD Work Phone: cC[facility] ClinicNcnife82-18-7252 13:26-0400Heart rate74 /min Norberto Andrade MD Work Phone: cC[facility] ClinicEqyfxd87-05-6527 13:26-0400Respiratory rate 18 /minNorberto Andrade MD Work Phone: cC[facility] ClinicVopnna24-34-9220 13:26-3148SgZ0% (BldA) [Mass fraction]99 %Norberto Andrade MD Work Phone: cC[facility] ClinicOyfhsj26-23-6589 13:26-0400Systolic blood tkqnydex149 mm[Hg]Norberto Andrade MD Work Phone: cC[facility] ClinicHbppch89-71-8209 09:56-0400Body lujrqt435.9 cmMamark Bustillo PA Work Phone: [facility] HospitalOwythwwhtx32-50-9754 09:56-0400Body mass index (BMI) [Ratio]25.77 kg/n9Rfstlynmark Bustillo PA Work Phone: [facility] HospitalZsthnnkrah23-47-5178 09:56-0400Body cnebtf97.18 kgMattedgar Bustillo PA Work Phone: [facility] HospitalHheqrtpigw45-35-0644 12:52-0400Body temperature 97.59 [degF]Norberto Andrade MD Work Phone: MC[facility] ClinicAarxhd66-32-4979 12:52-0400Body gxodec92.6 kgNorberto Andrade MD Work Phone: cC[facility] ClinicEfznek31-82-6953 12:52-0400Diastolic blood zxmajxmd84 mm[Hg]Norberto Andrade MD Work Phone: cC[facility] ClinicSvafkm34-29-6545 12:52-0400Heart rate73 /min Norberto Andrade MD Work Phone: cpeoples hospitaland Llaoxv48-09-7501 12:52-0400Respiratory rate 18 /minNorberto Andrade MD Work Phone: cpeoples hospitaland Oounik07-73-0727 12:52-1673YrP6% (BldA) [Mass fraction]97 %Norberto Andrade MD Work Phone: cpe[facility] hospitaland Tarjbh43-55-9754 12:52-0400Systolic blood lvofcmtp563 mm[Hg]Norberto Andrade MD Work Phone: cC[facility] ClinicCzrsml95-79-7720 13:01-0400Body temperature 97.81 [degF]Chair Rolando Work Phone: [facility]03-12-2025 13:01-0400Diastolic blood pfzregsh68 mm[Hg]Chair Rolando Work Phone: [facility]03-12-2025 13:01-0400Heart rate65 /min Chair Hop Bottom Work Phone: [facility]03-12-2025 13:01-0400Respiratory rate 18 /minChair Hop [place] Work Phone: [facility]03-12-2025 13:01-9330KhX3% (BldA) [Mass fraction]96 %Chair Hop [place] Work Phone: [facility]03-12-2025 13:01-0400Systolic blood arvvnsjn043 mm[Hg]Chair Hop [place] Work Phone: [facility]03-05-2025 13:08-0500Body temperature 97.5 [degF]Chair Hop Bottom Work Phone: [facility]03-05-2025 13:08-0500Diastolic blood himvqrhc69 mm[Hg]Chair Hop Bottom Work Phone: [facility]03-05-2025 13:08-0500Heart rate56 /min Chair [place] Work Phone: [place] [address]-05-2025 13:08-0500Respiratory rate 16 /minChair Rolando Work Phone: [facility]03-05-2025 13:08-6675XyX4% (BldA) [Mass fraction]99 %Chair [place] Work Phone: [facility]03-05-2025 13:08-0500Systolic blood vsuenfai410 mm[Hg]Chair Rolando Work Phone: [place] [address]-26-2025 13:09-0500Body temperature 98.2 [degF]Norberto Andrade MD Work Phone: [place] [address]-26-2025 13:09-0500Body .5 kgNorberto Andrade MD Work Phone: 1(832)389-[address] [place] [address]-26-2025 13:09-0500Diastolic blood vhzeaozt50 mm[Hg]Norberto Andrade MD Work Phone: 1(470)456-[address] [place] [address]-26-2025 13:09-0500Heart rate86 /min Norberto Andrade MD Work Phone: 1(885)416-[address] [place] [address]-26-2025 13:09-0500Respiratory rate 16 /minNorberto Andrade MD Work Phone: 1(636)586-[address] [place], [place] [address]-26-2025 13:09-8419OuY2% (BldA) [Mass fraction]97 %Norberto Andrade MD Work Phone: cC[facility] ClinicSdcehd36-87-1703 13:09-0500Systolic blood eojiesqi106 mm[Hg]Norberto Andrade MD Work Phone: cCleveland ClinicEgvlrf95-52-3051 13:00-0500Body temperature 97.81 [degF]Chair Rolando Work Phone: [place] [address]-26-2025 13:00-0500Diastolic blood qkngvmyy58 mm[Hg]Chair Rolando Work Phone: 1(167) 616-983313 [address]26-2025 13:00-0500Heart rate90 /min Chair Rolando Work Phone: 1(416) 776-930713 [address]26-2025 13:00-1157JpW6% (BldA) [Mass fraction]98 %Chair Rolando Work Phone: 1(760) 675-512413 [address]26-2025 13:00-0500Systolic blood omtlkjyv173 mm[Hg]Chair [place] Work Phone: [place] [address]-19-2025 13:15-0500Diastolic blood mm[Hg]Chair Rolando Work Phone: [facility] HospitalComment [facility]:Pt reports he is asymptomatic and sees ixgfikgtnp91-90-1309 13:15-0500Systolic blood mwgvatyc691 mm[Hg]Chair Marshall Work Phone: [facility] HospitalComment on above:Pt reports he is asymptomatic and sees cxsyiddvai43-98-6822 13:10-0500Body .9 [degF] Chair Rolando Work Phone: [facility]02-19-2025 13:10-0500Heart rate87 /min Chair Rolando Work Phone: [place] [address]-19-2025 13:10-0500Respiratory rate 18 /minChair Rolando Work Phone: [place] [address]-19-2025 13:10-5062EdW3% (BldA) [Mass fraction]97 %Chair Marshall Work Phone: [facility]02-12-2025 08:33-0500Body temperature 97.5 [degF]Norberto Andrade MD Work Phone: cC[facility] ClinicSqgocc24-82-2563 08:33-0500Body xxvbnu13.5 kgNorberto Andrade MD Work Phone: cCleveland ClinicPymbcp15-41-5540 08:33-0500Diastolic blood snthefcp22 mm[Hg]Norberto Andrade MD Work Phone: cCleveland ClinicVzcnei74-75-0367 08:33-0500Heart rate80 /min Norberto Andrade MD Work Phone: cC[facility] ClinicZqthtw70-49-0846 08:33-0500Respiratory rate 18 /minNorberto Andrade MD Work Phone: cC[facility] ClinicYlahfc32-98-1768 08:33-6608BvV0% (BldA) [Mass fraction]96 %Norberto Andrade MD Work Phone: cC[facility] ClinicOgtlph40-59-0799 08:33-0500Systolic blood bghemoco855 mm[Hg]Norberto Andrade MD Work Phone: 1(476)306-[address] [place], [place] 4343101-29-2025 10:43-0500Body temperature 97.2 [degF]Norberto Andrade MD Work Phone: 1(796)770-[address] [place], [place] 4343101-29-2025 10:43-0500Body .7 kgAdaveronica Andrade MD Work Phone: 1(614)535-[address] [place], [place] 8900701-29-2025 10:43-0500Diastolic blood jzjjahvn36 mm[Hg]Norberto Andrade MD Work Phone: 1(889)581-[address] [place], [place] 8900701-29-2025 10:43-0500Heart rate81 /min Norberto Andrade MD Work Phone: 1(691)050-[address] [place], [place] 8900701-29-2025 10:43-0500Respiratory rate 18 /minNorberto Andrade MD Work Phone: 1(750)277-[address] [place], [place] 4343101-29-2025 10:43-0068GbW9% (BldA) [Mass fraction]97 %Norberto Andrade MD Work Phone: cCleveland ClinicYbenuq48-26-3605 10:43-0500Systolic blood zebscluj166 mm[Hg]Norberto Andrade MD Work Phone: cCleveland ClinicFimzzf61-38-9639 11:17-0500Diastolic blood oubdhbfm79 mm[Hg]Cady Espinosa MD Work Phone: [facility]01-27-2025 11:17-0500 Systolic blood djeishiq546 mm[Hg]Cady Espinosa MD Work Phone: [facility]01-27-2025 10:51-0500 Body tcbekn807.9 cmCady Espinosa MD Work Phone: [facility]01-27-2025 10:51-0500 Body mass index (BMI) [Ratio]26.5 kg/x0OpisxdCady Espinosa MD Work Phone: [phone]01-27-2025 10:51-0500 Body dskenp85.63 kgCady Espinosa MD Work Phone: [address] [place], [place] 2332401-27-2025 10:51-0500 Heart rate72 /Kathryn Espinosa MD Work Phone: [address] [place], [place] 2332401-22-2025 09:50-0500 Blood Pressure LocationPatrick WHITNEY [facility]01-22-2025 09:50-0500Diastolic blood suufxyep93 mm[Hg]Lionel WHITNEY [facility]01-22-2025 09:50-0500Heart rate70 /minPatrick WHITNEY [facility]01-22-2025 09:50-0500Respiratory rate16 /minPatrick WHITNEY [facility]01-22-2025 09:50-0500Systolic blood ienosefi256 mm[Hg]Lionel WHITNEY [facility] [place] 723801-18-2024 11:49-0500Diastolic blood wlauvxfh32 mm[Hg]Cady Espinosa MD Work Phone: [facility]11-18-2024 11:49-0500 Systolic blood juifpukd928 mm[Hg]Cady Espinosa MD Work Phone: [facility]11-18-2024 11:28-0500 Heart rate67 /Kathryn Espinosa MD Work Phone: [facility]11-18-2024 11:27-0500 Body irstde318.9 cmCady Espinosa MD Work Phone: [facility]11-18-2024 11:27-0500 Body mass index (BMI) [Ratio]25.96 kg/n4XdoxipCady Espinosa MD Work Phone: [facility]11-18-2024 11:27-0500 Body alcjuw98.82 kgCady Espinosa MD Work Phone: [facility]10-08-2024 14:58-0400 Body kycltn876.88 cm[facility]10-08-2024 14:58-0400Body mass index (BMI) [Ratio]24.7 kg/h8HmgfpsvdnThe [facility]10-08-2024 14:58-0400Body fsvnak72 kgThe [facility]04-22-2024 15:27-0400 Body ysevgj974.88 cmMD Deandre Monterroso Work Phone: 1(210)[address]04-22-2024 15:27-0400 Body mass index (BMI) [Ratio]25 kg/m2MD Deandre Monterroso Work Phone: 1(066)[address]04-22-2024 15:27-0400 Body bkccrrjzcod17.2 [degF]MD Deandre Monterroso Work Phone: 1(212)[address]04-22-2024 15:27-0400 Body gfepmg94.91 kgMD Deandre Monterroso Work Phone: 1([phone])[address]04-22-2024 15:27-0400 Diastolic blood vbemwviw62 mm[Hg]MD Deandre Monterroso Work Phone: 1(813)[address]04-22-2024 15:27-0400 Heart rate79 /minMD Deandre Monterroso Work Phone: 1(939)[address]04-22-2024 15:27-0400 Systolic blood evgprsoi886 mm[Hg]MD Deandre Monterroso Work Phone: [facility]04-15-2024 10:35-0400 Blood Pressure LocationPatrick WHITNEY [facility]04-15-2024 10:35-0400Diastolic blood fgphsnre59 mm[Hg]Lionel WHITNEY [facility]04-15-2024 10:35-0400Heart rate72 /minPatrick WHITNEY [facility]04-15-2024 10:35-0400Respiratory rate16 /minPatrick WHITNEY [facility]04-15-2024 10:35-0400Systolic blood ozwpgcei613 mm[Hg]Lionel WHITNEY [facility]02-22-2024 11:10-0500Body cyhyzy870.88 cmMD Deandre Hoy Work Phone: [facility]02-22-2024 11:10-0500 Body mass index (BMI) [Ratio]24.3 kg/m2MD Deandre Hoy Work Phone: [facility]02-22-2024 11:10-0500 Body lytxtm30.19 kgMD Deandre Hoy Work Phone: [facility]08-23-2023 14:16-0400 Blood Pressure LocationMichael NILL [facility] Tfftebzx97-13-5603 14:16-0400Diastolic blood ncobrgtm75 mm[Hg]Alex NILL [facility] Dfoifegy60-62-4505 14:16-0400Heart rate 70 /minMichael NILL [facility] Gpoajhae66-01-8513 14:16-0400 Respiratory rate16 /minMichael NILL General Surgery Lazbeawx72-85-4245 14:16-0400Systolic blood ihswdvct112 mm[Hg]Alex NILL General Surgery Josqdjmc24-70-9198 10:20-0400Body .88 cmDaja Chavez Other [facility] Other 06-15-2023 10:20-0400Body mass index (BMI) [Ratio] 25.49 kg/m2Dale Chavez Other [facility] Other 06-15-2023 10:20-0400Body afvcbi57.28 kgDale Chavez Other [facility] Other 05-04-2023 10:20-0400Body yxqpen594.88 cmDaja Chavez Other [facility] Other 05-04-2023 10:20-0400Body mass index (BMI) [Ratio] 25.63 kg/m2Dale Chavez Other [facility] Other 05-04-2023 10:20-0400Body .73 kgDale Chavez Other [facility] Other 05-04-2023 10:20-0400Diastolic blood yoqehvtt74 mm[Hg] Zoran Chavez Other [facility] Other 05-04-2023 10:20-0400Systolic blood odcsgnvv808 mm[Hg] Zoran Chavez Other [facility] Other 09-06-2022 10:43-0400[facility]09-06-2022 10:43-0400Diastolic blood mm[Hg]Lionel WHITNEY [facility]09-06-2022 10:43-0400Heart rate65 /minPatrick WHITNEY [facility]09-06-2022 10:43-0400Respiratory rate16 /minPatrick WHITNEY [facility]09-06-2022 10:43-0400Systolic blood mm[Hg]Lionel WHITNEY [facility]08-30-2022 15:15-0400Diastolic blood foqfqcyk42 mm[Hg]MD Deandre Monterroso Work Phone: 1(086)204-[address] [place], [place] 5442608-30-2022 15:15-0400 Heart rate58 /minMD Deandre Monterroso Work Phone: 1(803)346-[address] [place], [place] 5442608-30-2022 15:15-0400 Respiratory rate16 /min Deandre Monterroso Work Phone: [facility]08-30-2022 15:15-0400 SaO2% (BldA) [Mass fraction]95 %MD Deandre Monterroso Work Phone: [facility]08-30-2022 15:15-0400 Systolic blood ikrbwrfh631 mm[Hg]MD Deandre Monterroso Work Phone: 1(814)041-[address] [place], [place] 5442608-30-2022 14:30-0400 Body jtatqf168.88 cmMD Deandre Monterroso Work Phone: [facility]08-30-2022 14:30-0400 Body mass index (BMI) [Ratio]26.2 kg/m2MD Deandre Monterroso Work Phone: [facility]08-30-2022 14:30-0400 Body kvrwba79.7 kgMD Deandre Monterroso Work Phone: 1(980)[address]08-30-2022 14:17-0400 Body ttgeawzuzep29.6 [degF]MD Deandre Monterroso Work Phone: 1(995)[address] [place], [place] 9263008-30-2022 13:52-0400 Inhaled oxygen flow rate10 L/minMD Deandre Migueltorsten Work Phone: 1(157)[address] [place], [place] 9263004-29-2022 11:42-0400 Body pslmha780.34 cmMD Deandre Monterroso Work Phone: 1(294)[address] [place], [place] 9263004-29-2022 11:42-0400 Body mass index (BMI) [Ratio]27 kg/m2MD Deandre Monterroso Work Phone: 1(297)[address] [place], [place] 9263004-29-2022 11:42-0400 Body sdtczdjpzeq59.4 [degF]MD Deandre Monterroso Work Phone: 1(029)[address] [place], [place] 9263004-29-2022 11:42-0400 Body dchlho49 kgMD Deandre Monterroso Work Phone: 1(380)[address] [place], [place] 9263004-29-2022 11:42-0400 Diastolic blood cudmywlr45 mm[Hg]MD Deandre Monterroso Work Phone: 1(766)[address] [place], [place] 9263004-29-2022 11:42-0400 Heart rate64 /minMD Deandre Monterroso Work Phone: 1(324)[address] [place], [place] 9263004-29-2022 11:42-0400 SaO2% (BldA) [Mass fraction]100 %MD Deandre Monterroso Work Phone: 1(514)[address]04-29-2022 11:42-0400 Systolic blood fwefwbjz557 mm[Hg]MD Deandre Monterroso Work Phone: 1(645)[address] [place] [address] Encounters Encounter DateEncounter TypeCare ProviderFacilityStart: 25-39-7494xirgoeeffo Patrick R WATERSFacility:W[facility] BellevueStart: 02-27-2025 End: 97-63-6371Neufxi flowsheetVasu Mackey MD Work Phone: no [facility] DermatologyStart: 02-27-2025 End: 57-03-7921Vxcole flowsheetVasu Mackey MD Work Phone: no [facility] DermatologyStart: 02-27-2025 End: 30-18-9047Qmwvrvz encounter procedureEmalbina Mackey MD Work Phone: no [facility] DermatologyComment on above:Neoplasm of unspecified behavior of bone, soft tissue, and skin (Primary Dx); Actinic keratosisStart: 02-27-2025 End: 56-88-6496qonttpmtqmPHECQ A PETITTINot AvailableStart: 02-26-2025 End: 38-18-0644bgbigoczrwYcxqhrh R WATERSFacility:FTMCStart: 02-26-2025 End: 94-24-5606eqhqrxixmnElxfasj R WATERSFacility:EU BellevueStart: 02-26-2025 End: 58-70-3135Cbjgcgz encounter procedureLionel WHITNEY [facility] start: 02-05-2025 End: 66-90-3285frjklzficmPgvbzip Vytautas Giedraitis Facility:[facility] [place] Start: 01-16-2025 End: 11-04-5089Dsvowm flowsheetJr. Alexandrea Colmenares DO Work Phone: noMS [facility]edicsStart: 01-16-2025 End: 95-38-4654Avuoeu flowsheetJr. Alexandrea Colmenares DO Work Phone: noms [facility]opaedicsStart: 01-16-2025 End: 45-26-5472Zmdjfv outpatient visit 15 minutesJr. Alexandrea Colmenares DO Work Phone: noms [facility] OrthopaedicsComment on above:Trochanteric bursitis of left hip (Primary Dx); Acute hip pain, leftStart: 01-16-2025 End: 83-01-6257xxpytwgrzkRX., ALEXANDREA Graham AvailableStart: 12-13-2024 End: 35-82-9464Ebmdnw outpatient visit 15 minutesAdarsxiomara Andrade MD Work Phone: Hematology/OncologyComment on above:Malignant neoplasm of urinary bladder, unspecified site (HCC) (Primary Dx)Start: 12-13-2024 End: 44-40-1878mtyhuxhvlkQQTVDQZ M HOYFacility:[facility] Centertart: 12-12-2024 End: 44-42-8116eifqenpojrCJRCNYWN E PERRYFacility:EU tart: 12-12-2024 End: 12-62-1748Prkwudf encounter procedureJENNIFER E AMBREEN [facility] [place] start: 12-11-2024 End: 03-54-0744vletshzxysSKSJQQ [facility] Start: 12-06-2024 End: 03-11-8080Bsccet flowsheetJr. Alexandrea Colmenares DO Work Phone: [facility] ORTHOStart: 12-06-2024 End: 29-59-7664Umqidx flowsheetJr. Alexandrea Colmenares DO Work Phone: noMS [facility]THOStart: 12-06-2024 End: 63-93-4874Psjcyp outpatient visit 15 minutesJr. Alexandrea Colmenares DO Work Phone: noMS [facility] ORTHOComment on above:Trochanteric bursitis of left hip (Primary Dx); Acute hip pain, leftStart: 12-06-2024 End: 42-10-2027qrkcdrzxglWKALEXANDREA GALINDO AvailableStart: 12-05-2024 End: 81-03-3455vaypqyfxsoUYWAXMCB E PERRYFacility:EU [place]vueStart: 12-05-2024 End: 62-80-4735Bbkjrrn encounter procedureJENNIFER E AMBREEN [facility] start: 11-28-2024 End: 16-71-3342byhxwbpftiZHXAPPAS E PERRYFacility:EU [place]vueStart: 11-28-2024 End: 77-62-4446Rfsafqx encounter procedureJENNIFER E AMBREEN [facility] start: 11-10-2024 End: 25-90-6218vwtslungubCGOJYKO J MEYERNot AvailableStart: 11-09-2024 End: 04-09-2084byldhhicivHQHCDBQ J MEYERNot AvailableStart: 10-27-2024 End: 89-37-3403Hgxxlw Shane MARES Work Phone: noms [facility]THOPAEDICSStart: 10-27-2024 End: 67-43-0117Pjptxr Shane MARES Work Phone: noms [facility] ORTHOPAEDICSStart: 10-27-2024 End: 76-40-0862zgjyarbttrVVUYPHP J MEYERNot AvailableStart: 10-27-2024 End: 29-35-4515Eqndsr outpatient visit 15 minutesMamark MARES Work Phone: noms FB ORTHOPAEDICSComment on above:Acute hip pain, left (Primary Dx)Start: 10-24-2024 End: 51-66-2786coxdtlkgxsPekslfe R WATERSFacility:FTMCStart: 10-24-2024 End: 39-44-3077Wcigjce encounter procedureLionel WHITNEY [facility] Start: 10-09-2024 End: 53-61-1627aldykljrrqMucncub R WATERSFacility:EU ueStart: 10-06-2024 End: 20-33-5623Rdcjgg flowsheetMamark MARES Work Phone: noms [facility] ORTHOPAEDICSStart: 10-06-2024 End: 45-10-6331Vkwars flowsMor MARES Work Phone: noms [facility] ORTHOPAEDICSStart: 10-06-2024 End: 64-51-7887tlvsgyuiotXCRQTLC J MEYERNot AvailableStart: 10-06-2024 End: 78-80-1420Qndnjv outpatient new 45 minutesMatthemerry MARES Work Phone: noms FB ORTHOPAEDICSComment on above:Acute hip pain, left (Primary Dx); Trochanteric bursitis of left hipStart: 09-20-2024 End: 28-65-9701Rjtapqsjqq hospital visit by Sammie Barkley [address] [place], [place] [address]Comment on above:Chest pressure; Shortness of breathStart: 09-20-2024 End: 62-01-1182jetgnplgauEDHDSBBerger Hospital Start: 09-13-2024 End: 10-81-6281Zniiics evaluation of patient and reportMa Nurse Enrique Trevino Work Phone: Hematology/OncologyComment on above:Malignant neoplasm of urinary bladder, unspecified site (HCC) (Primary Dx)Start: 09-13-2024 End: 25-98-6874Thpwwt outpatient visit 25 minutesAdarsh Raymond NOBLE Work Phone: Hematology/OncologyComment on above:Malignant neoplasm of urinary bladder, unspecified site (HCC) (Primary Dx)Start: 09-13-2024 End: 85-97-6860lbhfepeuahEyrcv [address] [place] Work Phone: Hematology/OncologyComment on above:Malignant neoplasm of urinary bladder, unspecified site (HCC) (Primary Dx)Start: 09-11-2024 End: 53-30-6726tztdpozzuuKLVYC A PETITTINot AvailableStart: 09-01-2024 End: 68-63-0723chmwtmzzrpUFTCIN VENNEPUREDDYFacility:[facility] Start: 09-01-2024 End: 53-28-9926Ywyjpnxtei hospital visit by physicianArrival Time Radiology Work Phone: Radiology Pet CTComment on above:Malignant neoplasm of urinary bladder, unspecified site (HCC) [C67.9]Start: 08-30-2024 End: 87-67-4639Cyiingp evaluation of patient and reportMa Nurse Enrique Trevino Work Phone: Hematology/OncologyComment on above:UTI symptoms (Primary Dx)Start: 08-30-2024 End: 47-40-6643otzaictlziJjwdh [address] Work Phone: Hematology/OncologyComment on above:Malignant neoplasm of urinary bladder, unspecified site (HCC) (Primary Dx)Start: 08-28-2024 End: 82-73-8424zbfvjluoycNoohdfq Vytdanieas Giedraitis MDFacility:[facility] [place] Start: 08-23-2024 End: 55-14-2535Hlzjii-up encounterAdarsh Raymond NOBLE Work Phone: Hematology/OncologyStart: 08-23-2024 End: 31-99-3664Xmtunfb evaluation of patient and reportMa Nurse Enrique Trevino Work Phone: Hematology/OncologyComment on above:High risk medication use (Primary Dx)Start: 08-23-2024 End: 68-05-3199afumzlklhoQslto [address] [place] Work Phone: Hematology/OncologyComment on above:Malignant neoplasm of urinary bladder, unspecified site (HCC) (Primary Dx)Start: 08-16-2024 End: 40-35-7245Tvwfwpx evaluation of patient and reportMa Nurse Enrique Trevino Work Phone: Hematology/OncologyComment on above:High risk medication use (Primary Dx)Start: 08-16-2024 End: 56-34-5629Ratxqh outpatient visit 25 minutesAdarsh Raymond NOBLE Work Phone: Hematology/OncologyComment on above:Malignant neoplasm of urinary bladder, unspecified site (HCC) (Primary Dx)Start: 08-16-2024 End: 57-60-3024duirxkksfgDmnen [address] Work Phone: Hematology/OncologyComment on above:Malignant neoplasm of urinary bladder, unspecified site (HCC) (Primary Dx)Start: 08-09-2024 End: 96-40-3064Lppllsg evaluation of patient and reportMa Nurse Enrique Trevino Work Phone: Hematology/OncologyComment on above:High risk medication use (Primary Dx)Start: 08-09-2024 End: 90-84-3684eijbqluubbLdxbj [address] Work Phone: Hematology/OncologyComment on above:Malignant neoplasm of urinary bladder, unspecified site (HCC) (Primary Dx)Start: 08-07-2024 End: 24-51-5404Ndknlhbjx encounterTifstella Ugalde RN Work Phone: Hematology/OncologyComment on above:Care Coordination (C1D1 treatment follow up call)Start: 08-07-2024 End: 46-37-3723ghamjycwgaGtmqghr Vytautas Giedraitis MDFacility:MIRIAN Reilly Start: 08-02-2024 End: 61-81-8681Bomrews evaluation of patient and reportMa Nurse Enrique Trevino Work Phone: Hematology/OncologyComment on above:Malignant neoplasm of urinary bladder, unspecified site (HCC) (Primary Dx)Start: 08-02-2024 End: 54-08-6243widrdfixkaXytxj VIAPy Work Phone: Hematology/OncologyComment on above:Malignant neoplasm of urinary bladder, unspecified site (HCC) (Primary Dx)Start: 08-02-2024 End: 16-63-5615Kcpzvg outpatient visit 25 minutesAdarsh Raymond NOBLE Work Phone: Hematology/OncologyComment on above:Malignant neoplasm of urinary bladder, unspecified site (HCC) (Primary Dx)Start: 08-01-2024 End: 89-41-9389Enhygbdek encounterFinancial Navigator Enrique Work Phone: Hematology/OncologyComment on [...] feel free to stop in or call [phone] for any questions you may have. )Start: 07-26-2024 End: 12-01-0304CdifxvMendel Vargas [facility] Work Phone: Hematology/OncologyComment on above:Malignant neoplasm of urinary bladder, unspecified site (HCC) (Primary Dx)Start: 07-19-2024 End: 41-78-4410htrbcuorpmLPXFGQ VENNEPUREDDYFacility:[facility] Start: 07-19-2024 End: 40-52-3606Iftpom outpatient new 60 minutesNorberto Andrade MD Work Phone: Hematology/OncologyComment on above:Malignant neoplasm of urinary bladder, unspecified site (HCC) (Primary Dx)Start: 07-18-2024 End: 21-52-2661Xdlgf Magnolia Andrade MD Work Phone: Hematology/OncologyStart: 07-17-2024 End: 37-60-0417Trbhcs outpatient visit 25 minutesCady Espinosa MD Work Phone: [facility] HospitalComment on above:Uncontrolled hypertension; Unequal blood pressure in upper extremities; Mixed hyperlipidemia; Former smoker; Bilateral carotid artery stenosis; History of prostate cancer; Hx of bladder cancer; Medication course changed; Chest pressure; Shortness of breath; BMI 26.0-26.9,adultStart: 07-17-2024 End: 99-94-4753qycbshpmmrIKQCFOSt. Elizabeth's Hospital AmbulatoryStart: 07-12-2024 End: 66-70-9564uroupqfbynSzzdtrz R WATERSFacility:EU [place]kyStart: 07-12-2024 End: 77-32-0467Hdxtkat encounter procedureLionel WHITNEY [facility] [place] Start: 07-06-2024 End: 72-84-2636tvtzhrcshwFoxpyyz M Hoy MD Work Phone: [facility] Work Phone: Start: 07-06-2024 End: 90-56-2077Tyvjbbfr ReferredDeandre Monterroso MD Work Phone: [facility] [place] HospStart: 07-06-2024 End: 34-51-0175tordrzkjbyNjvpvgf R WATERSFacility:CD:[id number]: 07-03-2024 End: 40-98-6222czwfyptdiuZyiiyza Vytautas Giedraitis MDFacility:[facility] [place] Start: 06-09-2024 End: 20-67-5894Nkcgtqrzhx hospital visit by physicianTania Marshall Echo/Vas Room 2[facility] CenterComment on above:Left carotid bruit; Unequal blood pressure in upper extremitiesFormer smoker; Shortness of breathStart: 06-09-2024 End: 67-28-0684gwnlflgebxLBBYEBProMedica Flower Hospital Start: 06-05-2024 End: 99-43-9155svkxlfsmegEbuwxhx Vytautas Giedraitis MDFacility:[facility] [place] Start: 05-29-2024 End: 39-98-1898htudsjnzbtFycoimj Vytautas Giedraitis MDFacility:[facility] [place] Start: 05-22-2024 End: 23-23-2718Acl Drop Maury WHITNEY [facility] Start: 05-22-2024 End: 22-63-6015rmxnkszxhbGsadzwk R WATERSFacility:FTMCStart: 05-22-2024 End: 41-63-2449Kfgawmi encounter procedureLionel WHITNEY [facility] start: 05-09-2024 End: 48-04-7118leyiejcjmdRwegrkk R WATERSFacility:FTMCStart: 05-09-2024 End: 62-68-0769Tjgkxmv encounter procedureLionel WHITNEY [facility] Start: 05-08-2024 End: 44-58-2120Wrtowh consultation new/estab patient 61 Kathryn Espinosa MD Work Phone: uh FirelandsComment on above:Unequal blood pressure in upper extremities; Uncontrolled hypertension; Shortness of breath; Mixed hyperlipidemia; History of prostate cancer; Hx of bladder cancer; History of fractured rib; Former smoker; BMI 25.0-25.9,adult; Medication course changedStart: 05-08-2024 End: 04-70-2174zsztvfidkwAIWYTSEmory [facility] AmbulatoryStart: 04-10-2024 End: 33-67-6003powvsbdikaZdyhsqdTomás Landa MDFacility:[facility] Start: 03-28-2024 End: 43-13-5441anmjhlzbjhGioafnvurSelect [facility] Work Phone: Start: 03-28-2024 End: 64-07-1789Jkvstwb encounter procedureAn[facility] Neurosurgery Work Phone: start: 03-27-2024 End: 04-78-1647onvuyfptubTckzfrkTomás Landa MDFacility:[facility] Start: 10-26-2023 End: 48-33-5918Jnuotaa encounter Betsy WHITNEY [facility] Start: 10-11-2023 End: 41-68-0596zuaelfdlqnBM Deandre M Hoy Work Phone: [facility] Work Phone: Start: 10-11-2023 End: 82-63-9407Weokmqh encounter procedureMD Deandre Hoy Work Phone: [facility] Work Phone: Start: 10-04-2023 End: 77-16-3055Wfqhach encounter procedurePasantiago WHITNEY [facility] start: 08-28-2023 End: [id number] encounter procedureMD Deandre Hoy Work Phone: [facility] [place] Work Phone: Start: 08-28-2023 End: 38-30-1660qjjxnryyvmSplbaxf M HoyFacility:[facility] Start: 08-12-2023 End: 53-70-2224Mwijgxk encounter procedureMD Deandre Hoy Work Phone: [facility] [place] Work Phone: Start: 08-12-2023 End: 62-18-6452jvyjhfvfnhWH Deandre M Hoy Work Phone: [facility] Work Phone: Start: 08-12-2023 End: [id number] Deandre M Hoy Work Phone: [facility] Work Phone: Start: 08-12-2023 End: 86-09-4887Kpkjzkj encounter procedureMD Deandre Hoy Work Phone: [facility] Work Phone: start: 04-27-2023 End: 95-03-1831Ukvujed encounter procedureLionel WHITNEY [facility] Start: 02-10-2023 End: 75-85-7038Vtxbdxc encounter procedureMichael R NILL General Surgery Nill/Said Melba Start: 01-05-2023 End: 00-49-5883Dhcdrxz encounter procedurePatrick R DEVONTE [facility] Start: 01-01-2023 End: 31-55-6059oeazpqojbrMV Deandre Monterroso Work Phone: [facility] Work Phone: Start: 01-01-2023 End: 22-98-2381Pnduelp encounter procedureMD Deandre Monterroso Work Phone: [facility] [place] Work Phone: Start: 12-03-2022 End: 16-94-2532vobvpsinyvEgoa Braun Other [employer] Other start: 77-26-6355Ldwoon outpatient visit 15 minutes [facility] NeurosurgeryStart: 04-76-8987anoekmadtsRYBJCUQ GIEDRAITISFacility:R9Ylymm: 10-28-2022 End: 63-95-1473qveqqnenlcDL JIHAD ABBASFacility:Y6Jffxl: 10-27-2022 End: 46-58-1844umirhrnqgnFI ZORAN BRAUNFacility:N6Iccae: 10-23-2022 End: 17-28-1192wpanjwsvnuWY ZORAN BRAUNFacility:X5Rzoob: 10-22-2022 End: 73-01-5068yyrdqqerqrMmok Scott Other [employer] Other start: 79-48-2798Zsuhry outpatient visit [address] [facility] NeurosurgeryStart: 10-05-2022 End: 11-48-9373zyyxmmurubXH DEANDRE HOY .Facility:U6Qrokf: 09-24-2022 End: 15-39-6759ggukqewvtjQG DEANDRE HOY .Facility:V2Zaiqo: 09-21-2022 End: 47-60-9069wsgtbzwedmFC LIONEL WHITNEY .Facility:Y6Jbzxv: 09-21-2022 End: 58-55-5358Cjgdfsg encounter procedurePatricjuan luis WHITNEY [facility] start: 08-19-2022 End: 62-47-9081gesqetudvrMH LIONEL WHITNEY .Facility:P0Mgzwr: 08-17-2022 End: 09-95-9318Jwojqjc encounter procedurePatricjuan luis WHITNEY [facility] start: 08-04-2022 End: 16-98-0275oqrpldyuouLP DEANDRE HOY .Facility:L2Neeql: 07-28-2022 End: 54-88-1444omuhozrzmcQH DEANDRE HOY .Facility:P7Zmsoy: 07-23-2022 End: 36-30-0064bfmnjlhguuCH LIONEL WHITNEY .Facility:B4Lglus: 07-20-2022 End: 08-75-5763Kbxxcge encounter procedurePasantiago WHITNEY [facility] Start: 07-07-2022 End: 90-45-1986Mcrneuu encounter procedurePatricjuan luis WHITNEY [facility] Start: 06-30-2022 End: 49-01-5217xxbpffnulrIA DEANDRE HOY .Facility:L1Jdzmv: 06-04-2022 End: 98-68-8509ednuiidoirIY DEANDRE HOY .Facility:M5Cfgwj: 05-25-2022 End: 26-73-0132aztbirihaiHW DEANDRE CUBAY .Facility:M6Cqdoq: 05-18-2022 End: 70-49-8477Tfveyqi encounter procedurePasantiago WHITNEY [facility] start: 04-27-2022 End: 95-52-5344ywlwsrispeGF DEANDRE MONTERROSO .Facility:C5Ufthb: 04-18-2022 End: 19-06-0267gobwsukncpSA FELICIA GALDAMEZ .Facility:N8Ykrmi: 04-15-2022 End: 16-79-7078Pfwekyk encounter procedurePasantiago WHITNEY [facility] start: 03-26-2022 End: 02-89-2063khdzdlaehdIC LIONEL WHITNEY .Facility:S9Enkrh: 03-12-2022 End: 83-04-0341pogfpgyfhkJI DEANDRE MONTERROSO .Facility:U4Mkhze: 03-09-2022 End: 71-17-9013Cqnmqmv encounter procedurePasantiago WHITNEY [facility] start: 02-27-2022 End: 73-75-9768Rvr Drop offLionel WHITNEY [facility] Start: 02-27-2022 End: 02-22-9867Nrskeen encounter procedurePatricjuan luis WHITNEY [facility] start: 02-24-2022 End: 45-13-8414Vfekbks encounter procedurePatricjuan luis WHITNEY [facility] Start: 02-17-2022 End: 10-99-9172Whneccnmp to same day surgery centerMD Deandre Hoy Work Phone: [facility] [facility]Start: 02-13-2022 End: 63-39-9146Glkvdge encounter procedureMD Deandre Hoy Work Phone: [facility] Start: 02-06-2022 End: 32-32-6311Fugcwpl encounter procedureMD Deandre Hoy Work Phone: [facility] Start: 11-11-2021 End: 28-09-8943Gxqgzar encounter procedurePasantiago Burgos WHITNEY [facility] Start: 11-05-2021 End: 72-19-9016Cacvcbo encounter procedurePatricjuan luis Burgos WHITNEY [facility] [place] Start: 10-29-2021 End: 75-55-4713Kczspvcln to same day surgery centerMD Deandre Hoy Work Phone: [facility] [place] [facility] CampusStart: 10-27-2021 End: 47-55-2860Mfsubhf encounter procedureMD Deandre Hoy Work Phone: [facility] Zwu-Fet-Xroojevn Testing Start: 10-17-2021 End: 50-70-8704Fyshwvm encounter procedureMD Deandre Hoy Work Phone: [facility] Procedures DateProcedureProcedure DetailPerforming ClinicianStart: 02-67-1079GIFDYPRVOEM SKIN LESIONEmily Vee Mackey MD Work Phone: Start: 88-18-7892WHWV / NAIL BIOPSYEmalbina Mackey MD Work Phone: Start: 70-51-2581AnagkgrnpiYevjjtp WHITNEY Start: 30-70-3150Ylegbymqngfqew aspir&/inj major jt/bursa w/o usMatthew Beka MARES Work Phone: Start: 30-19-9842Zw strs tst xers&/or rx cont ecg trcg onlyCady Espinosa MD Work Phone: Start: 96-32-3663Rruvr dip stick/tablet rgnt auto w/o microscopyNorberto Andrade MD Work Phone: start: 49-19-7304Bclzu dip stick/tablet rgnt auto w/o microscopyCcf ProviderStart: 30-54-5983Mbubj dip stick/tablet rgnt auto w/o microscopyCcf ProviderStart: 20-49-9056Juaeo dip stick/tablet rgnt auto w/o microscopyCcf ProviderStart: 87-22-2470Ggxpvjeygzmzm resection of bladder neoplasmIdtrick WHITNEY Start: 21-05-7414Bclnos scan extracranial art compl bi studyCady Espinosa MD Work Phone: Start: 44-79-8423Ucqt tthrc r-t 2d w/wom-mode compl spec&colr dGcameron Espinosa MD Work Phone: Start: 64-96-5679Szc routine ecg w/least 12 lds w/i&r Cady Espinosa MD Work Phone: Start: 58-03-3252IKJ of cervical spine with contrastMD Deandre Monterroso Work Phone: Start: 17-50-9850C-ray of lumbar spine, six views including bending viewsMD Deandre Hoy Work Phone: Start: 20-49-2548D-ray of cervical spineMD Deandre Hoy Work Phone: Start: 72-40-3247Qawvgtovzeasy cystoscopyPamonroe county medical centerjuan luis WHITNEY Start: 47-66-1984Hibidkqdligam resection of bladder neoplasmPatrick DEVONTE Start: 14-08-6328FA lumbar spine wo conMD Deandre Monterroso Work Phone: Start: 93-73-1685VDS screeningDR JAYLEENPRESTONRicarda Daley on above:Performed By: #### PSAD #### [facility] [address] [place] [address] Dr. Oropeza Start: 02-49-7244Dxxfguawqleve resection of bladder neoplasmMD Deandre Hoy Work Phone: [phone]-art: 22-97-4072Kzllqwroekhwi resection of bladder neoplasmPatrick DEVONTE Start: 13-64-8882Bmpoetlqblrej resection of bladder neoplasmMD Deandre Hotorsten Work Phone: [phone]-: 75-02-8831Tvatdfguct radiography of abdomenMD Deandre Monterroso Work Phone: [phone]-art: 74-74-9324Xvqekolvntjms resection of bladder neoplasmPatrick DEVONTE Start: 39-96-6969Xouav chest X-rayMD Deandre Monterroso Work Phone: [phone]-art: 61-06-0368Wxwzjpibabjtkqpeb with dilation of urethral stricturePatrick DEVONTE Start: 35-39-6954Hdkyrx of umbilical herniaPatrick WHITNEY Comment on above:Umbilical hernia repair with mesh ( assisted with robot)Start: 51-60-3323Ljkmapufhrh of shoulderPatrick WHITNEY Comment on above:LEFT SHOULDER ARTHROSCOPIC, CHONDROPLASTY,DEBRIDEMENT OF PARTIAL ROTATOR CUFF TEAR, REMOVAL RETAINED SUTURE Start: 68-40-7168zdmvdkusg fifth partial metatarsal osteotomies and Silver Tailor's bunionectomiesPatrick [employer] Start: 44-62-5012Mrwsatx prostatectomyPatrick WHITNEY Start: 66-16-9143Ecqwpoc perineal prostatectomyUofl Health - Jewish HospitalInfoblox Comment on above:[facility]: 65-48-4866KpxmbdnlxrlQdqnilt NILL Start: 14-06-9080Tnjchoow repair of rotator cuffPatrick DEVONTE Comment on above:rightStart: 13-94-6154Ucumvhfn reconstructionPatrick DEVONTE Comment on above:left possibly a screw in there per pt Start: 33-36-7249SxylhrpipabtPwpnpgj DEVONTE arthroplasty of the anklePatrick DEVONTE Comment on above:1988, 1990Arthroscopy of kneePatrick DEVONTE [phone]-Rhex sequence (disorder)Lioneljameel WHITNEY Plan of Treatment DateCare ActivityDetailAuthorStart: 47-27-6429KKpB/Tdap/Td Vaccines (3 - Td or Tdap)DTaP/Tdap/Td Vaccines (3 - Td or Tdap)[facility] Start: 75-67-9571Ggmzc microalbumin profileDTaP,Tdap,Td Vaccine (3 - Td or Tdap) [facility]: 45-83-7478Obpokqmb ScreeningDiabetes ScreeningMercy Health St. Anne Hospitaltart: 55-06-1429Mhhmljjy ScreeningDiabetes ScreeningShelby Memorial Hospital Start: 34-44-6544Wynsqxor ScreeningDiabetes ScreeningMercy Health St. Anne Hospitaltart: 46-39-9733Giojxbsj ScreeningDiabetes ScreeningClune ClinicStart: 2026 RSV Vaccine (1 - 1-dose 75+ series)RSV Vaccine (1 - 1-dose 75+ series)[facility] Hospitaltart: 09-11-2025 End: 20-82-7777Ojpzora encounter procedureNOMS SWS DERMStart: 07-17-2025 End: 64-38-6883Pnphxwg encounter ogqfteqkc01/27/2026 10:00 AM EST Office Visit [facility] [place] [address] Jr. Alexandrea Colmenares, DO [address] [facility] [address] [place] [address] NOMRozina [facility] OrthopaedicsStart: 02-27-2025 End: 57-95-3624Milqmso encounter cmzgivopu82/09/2025 11:15 AM EDT Office Visit [facility] [place] [facility] [address] [place], [phone] Vasu Mackey MD [address] [place] [address] ArrivedNOMS [place] DermatologyComment on above:ArrivedStart: 13-33-3338Voagaascg vaccinationMercy Health St. Anne Hospitaltart: 01-16-2025 End: 78-49-3363Iqsnhix encounter procedureNOMS FB ORTHOPAEDICSComment on above: ArrivedStart: 01-01-2025 End: 33-62-6778Itatuxl encounter fiojyehwo29/14/2025 10:45 AM EDT Office Visit [facility] [address] [facility] [address] [place] [address] Cady Espinosa MD [address] [facility] [address] [place] [address] [facility] HospitalStart: 12-13-2024 End: 41-94-7326Mguffeuqd (Vitamin B12) [Mass/volume] in Serum or PlasmaClune ClinicComment on above:Expected: 12/13/2024, Expires: 03/14/2025Start: 12-13-2024 End: 46-09-1101Rhfbunpo [Mass/volume] in Serum or [facility] Work Phone: comment on above:Expected: 12/13/2024, Expires: 03/14/2025Start: 12-13-2024 End: 13-41-3236Vfpuow [Mass/volume] in Serum or PlasmaShelby Memorial HospitalComment on above:Expected: 12/13/2024, Expires: 03/14/2025Start: 12-13-2024 End: 03-81-1417Jtsf and Iron binding capacity panel - Serum or PlasmaShelby Memorial HospitalComment on above:Expected: 12/13/2024, Expires: 03/14/2025Start: 12-13-2024 End: 99-48-5946Pmqwkp-up psecwudre81/25/2025 1:00 PM EDT Visit (SP) Office Hematology/Oncology [address] [place], [place] [phone] Norberto Andrade MD [address] [place] [address] 3 month follow upHematology/OncologyComment on above:3 month follow upStart: 12-13-2024 End: 07-07-7186Tjpmojv encounter pldbihumz25/25/2025 12:45 PM EDT Office Visit [facility] [address] [place] [address] [place] [address] 3 month follow upNortProMedica Coldwater Regional Hospital LaboratoryComment on above:3 month follow upStart: 12-06-2024 End: 03-43-1671Qoiamiq encounter wwdwhtuhy06/18/2025 8:45 AM EDT Office Visit [facility] [address] [place] [phone] Jr. Alexandrea Colmenares, [address] [facility] [address] [place] [address] ArrivedNOKAISER PERMANENTE MEDICAL CENTER ORTHOComment on above: ArrivedStart: 11-16-2024 End: 84-06-6474Yqqicij encounter epwnilfjj30/29/2025 10:45 AM EDT Appointment [facility] [address] [facility] [address] [place] [phone] [facility]Start: 11-10-2024 End: 34-28-9442Cqcawrz encounter yyxdmbqyr34/23/2025 9:45 AM EDT Office Visit [facility] [address] [place] [phone] Karen Bustillo PA [address] [facility] [address] [place] [address] NOM[facility] FB ORTHOPAEDICSStart: 10-27-2024 End: 58-88-2844XA Hip - left WO contrastMR hip left wo IV contrast Imaging Routine Acute hip pain, left Expected: 10/27/2024 (Approximate),Expires: 10/27/2025[facility] Work Phone: Comment on above:Expected: 10/27/2024 (Approximate), Expires: 10/27/2025Start: 10-27-2024 End: 34-06-3918Noaaifx encounter xgjxqdbpe33/09/2025 9:45 AM EDT Office Visit [facility] [address] [place] [address] Karen Bustillo PA [address] [facility] [address] [place] [address] NOMS ORTHOPAEDICSStart: 09-13-2024 End: 30-85-6927Fxtmduv evaluation of patient and xspyfl7209/13/2024 2:00 PM EDT Nurse Visit Hematology/Oncology [address] [place] [address] [place] [address] [phone] Bruno Trevino Nurse Enrique [address] [place] [address] UA to rule ogUTIHematology/OncologyComment on above:UA to rule og UTI Start: 09-13-2024 End: 53-01-2169szajmnfrny05/26/2025 1:00 PM EDT Infusion Center Hematology/Oncology [address] [place] [address] BCG Hematology/OncologyComment on above:BCGStart: 09-13-2024 End: 82-95-0373Kvcrqv-up nfxoekdtg56/26/2025 1:00 PM EDT Visit (SP) Office Hematology/Oncology [address] [place], [place] [phone] Norberto Andrade MD [address] [place] [place] [address] 4 week lab follow up w/ BCGHematology/OncologyComment on above:4 week lab follow up w/ BCGStart: 09-13-2024 End: 47-70-5291Tpwhhaq encounter piyjhckdi27/26/2025 12:45 PM EDT Office Visit [facility] [address] [place] [address] 4 week lab follow up w/ BCGNorth Va Medical Center LaboratoryComment on above:4 week lab follow up w/ BCGStart: 09-06-2024 End: 49-80-9517Jtrqgbv evaluation of patient and pbkfpv8409/06/2024 2:00 PM EDT Nurse Visit Hematology/Oncology [address] [place] [address] [place] [address] [phone] Bruno Trevino Nurse Enrique [address] [place] [address] UA to rule ogUTIHematology/OncologyComment on above:UA to rule og UTI Start: 09-06-2024 End: 50-95-5961gjrnqwzica91/19/2025 1:00 PM EDT [facility] Center Hematology/Oncology [address] [place] [address] [place] [address] New start Intravesical BCGHematology/OncologyComment on above:New start Intravesical BCGStart: 09-01-2024 End: 36-41-5687Bqfncrb encounter qkahnqvjw86/14/2025 1:15 PM EDT Appointment Radiology Pet CT [address] [place] [address] CT CAP W IV Radiology Pet CTComment on above:CT CAP W IVStart: 08-31-2024 End: 24-43-8251Oyzbeaq encounter procedureUH Linette ReillylandsStart: 08-31-2024 End: 21-30-7055Idwvdaw encounter procedureUH Linette ReillylandsStart: 08-30-2024 End: 42-92-2788Ewnqerq evaluation of patient and upotfa2508/30/2024 2:30 PM EDT Nurse Visit Hematology/Oncology [address] [place] [address] Bruno Trevino Nurse Enrique [address] [place] [address] UA to rule ogUTIHematology/OncologyComment on above:UA to rule og UTI Start: 08-30-2024 End: 13-84-0877VC Abdomen and Pelvis W contrast IVCT ABD/PEL W IVCON Radiology Routine Malignant neoplasm of urinary bladder, unspecified site (HCC) Expected: 08/30/2024, Expires: 09/15/2025[facility] Work Phone: comment on above:Expected: 08/30/2024, Expires: 09/15/2025Start: 08-30-2024 End: 55-46-8259GN Chest W contrast IVCT CHEST W IVCON Radiology Routine Malignant neoplasm of urinary bladder, unspecified site (HCC) Expected: 08/30/2024, Expires: 09/15/2025[facility] ClinicComment on above:Expected: 08/30/2024, Expires: 09/15/2025Start: 08-30-2024 End: 76-48-1804ercxqkrvxvGranubmevn/OncologyComment on above:New start Intravesical BCGBCGStart: 08-23-2024 End: 10-98-7188Mhpmcxa evaluation of patient and reportHematology/Oncology Comment on above:UA to rule og UTIUA to rule out UTIStart: 08-23-2024 End: 12-14-6796vjapiruycaZolwtohugz/OncologyComment on above:New start Intravesical BCGBCGStart: 08-16-2024 End: 77-54-8614Vsmlrqk evaluation of patient and reportHematology/Oncology Comment on above:UA to rule og UTIUA to rule out UTI (no orders)Start: 08-16-2024 End: 90-59-9464RZU W Auto Differential panel - BloodCOMPLETE BLOOD COUNT AND DIFFERENTIAL Lab Routine Malignant neoplasm of urinary bladder, unspecified site (HCC) Expected: 08/16/2024 (Approximate), Expires: 11/15/2024[facility] Work Phone: comment on above:Expected: 08/16/2024 (Approximate), Expires: 11/15/2024Start: 08-16-2024 End: 07-32-1130Jsilqshvimvdg metabolic 2000 panel - Serum or PlasmaCOMPREHENSIVE METABOLIC PANEL Lab Routine Malignant neoplasm of urinary bladder, unspecified site (HCC) Expected: 08/16/2024 (Approximate), Expires: 11/15/2024[facility] ClinicComment on above:Expected: 08/16/2024 (Approximate), Expires: 11/15/2024 Start: 08-16-2024 End: 37-82-1565Egdwmdfc specific Ag [Mass/volume] in Serum or PlasmaPROSTATE- SPECIFIC ANTIGEN DIAGNOSTIC Lab Routine Malignant neoplasm of urinary bladder, unspecifiedsite (HCC) Expected: 08/16/2024 (Approximate), Expires: 11/15/2024 [facility] HospitalComment on above:Expected: 08/16/2024 (Approximate), Expires: 11/15/2024Start: 08-16-2024 End: 05-99-0517wljbsirrwuRtdmfjkxbo/OncologyComment on above:New start Intravesical BCGBCGStart: 08-16-2024 End: 87-34-0016Finmqu-up ewwzqegcm58/26/2025 1:00 PM EST Visit (SP) Office Hematology/Oncology [address] [place] [address] [place], [place] [phone] Norberto Andrade MD [address] [place] [address] [place] [address] 2 week lab follow upHematology/OncologyComment on above:2 week lab follow upStart: 08-16-2024 End: 61-44-7718Jsfdnbt encounter vryygjoba70/26/2025 12:45 PM EST Office Visit [facility] [address] [place] [address] 2 week lab follow upNortProMedica Coldwater Regional Hospital LaboratoryComment on above:2 week lab follow upStart: 08-09-2024 End: 71-67-7709Bheftie evaluation of patient and hxhaww8508/09/2024 2:00 PM EST Nurse Visit Hematology/Oncology [address] [place] [address] [phone] Bruno Trevino Nurse Enrique [address] [place] [address] UA to rule ogUTIHematology/OncologyComment on above:UA to rule og UTI Start: 08-09-2024 End: 45-77-5413jfshejpbceEzxpuqjloh/OncologyComment on above:New start Intravesical BCGBCGStart: 08-08-2024 End: 30-76-5292Tfrojkx aminotransferase [Enzymatic activity/volume] in Serum or Plasma by With P-5'-PAlanine Aminotransferase Lab Routine Mixed hyperlipidemia Expected: 08/08/2024, Expires: 05/08/2025[facility] Work Phone: Comment on above:Expected: 08/08/2024, Expires: 05/08/2025Start: 08-08-2024 End: 56-78-5955Fjarqncks aminotransferase [Enzymatic activity/volume] in Serum or Plasma by With P-5'-PAspartate Aminotransferase Lab Routine Mixed hyperlipidemia Expected: 08/08/2024, Expires: 05/08/2025[facility] Work Phone: Comment on above:Expected: 08/08/2024, Expires: 05/08/2025Start: 08-08-2024 End: 49-76-1966Oxouz 1996 panel - Serum or PlasmaLipid Panel Lab Routine Mixed hyperlipidemia Expected: 08/08/2024, Expires: 05/08/2025[facility] Work Phone: Comment on above:Expected: 08/08/2024, Expires: 05/08/2025Start: 08-02-2024 End: 70-04-9120Sufaawk evaluation of patient and mnrhyg2108/02/2024 9:00 AM EST Nurse Visit Hematology/Oncology [address] [place] [address] [phone] Bruno Trevino Nurse Enrique [address] [place] [address] UA to rule ogUTIHematology/OncologyComment on above:UA to rule og UTI Start: 08-02-2024 End: 54-04-9777tlvgvycovw27/12/2025 8:30 AM EST Infusion Center Hematology/Oncology [address] [place] [address] New start Intravesical BCGHematology/OncologyComment on above:New start Intravesical BCGStart: 08-02-2024 End: 10-01-1126Hewlcz-up /12/2025 8:30 AM EST Visit (SP) Office Hematology/Oncology [address] [place], [place] [phone] Norberto Andrade MD [address] [place] [address] Follow upHematology/OncologyComment on above:Follow up Start: 08-02-2024 End: 06-28-0404Fwlztfd encounter olhtpeioj19/12/2025 8:15 AM EST Office Visit [facility] [address] [place] [address] labNortProMedica Coldwater Regional Hospital LaboratoryComment on above:labStart: 07-26-2024 End: 66-31-6240Wqfqtlf evaluation of patient and pelggr9507/26/2024 11:00 AM EST Nurse Visit Hematology/Oncology [address] [place] [address] [place] [address] Ingrid Ugalde, RN [address] [place] [address] Chemo EducationHematology/OncologyComment on above:Chemo EducationStart: 07-19-2024 End: 19-87-6739HJB W Auto Differential panel - BloodCOMPLETE BLOOD COUNT AND DIFFERENTIAL Lab Routine Malignant neoplasm of urinary bladder, unspecified site (HCC) Expected: 07/19/2024, Expires: 10/18/2024[facility] Work Phone: comment on above:Expected: 07/19/2024, Expires: 10/18/2024Start: 07-19-2024 End: 57-01-8711Uuuesgguzftct metabolic 1999 panel - Serum or PlasmaCOMPREHENSIVE METABOLIC PANEL Lab Routine Malignant neoplasm of urinary bladder, unspecified site (HCC) Expected: 07/19/2024, Expires: 10/18/2024leveland ClinicComment on above:Expected: 07/19/2024, Expires: 10/18/2024Start: 07-19-2024 End: 31-65-0764nindeivykl63/29/2025 11:00 AM EST Visit (SP) Office Hematology/Oncology [address] [place] [address] [place] [address] Norberto Andrade MD [address] [place] [address] [place] [address] Lionel Whitney. Dx: Bladder CA. will need #6 BCG treatments after Jul 27.Hematology/OncologyComment on above: Referred by Dr. Lionel Whitney. Dx: Bladder CA. will need #6 BCG treatments after Jul 27.Start: 07-17-2024 End: 74-19-3664Viclgyqyqhsce metabolic 1999 panel - Serum or PlasmaComprehensive Metabolic Panel Lab Routine Medication course changed Chest pressure Shortness of breath Expected: 07/17/2024 (Approximate), Expires: 07/17/2025[facility] Work Phone: Comment on above:Expected: 07/17/2024 (Approximate), Expires: 07/17/2025Start: 07-17-2024 End: 11-50-1343Oowcq 1996 panel - Serum or PlasmaLipid Panel Lab Routine Uncontrolled hypertension Mixed hyperlipidemia Medication course changed Exp ected: 07/17/2024 (Approximate), Expires: 07/17/2025[facility] Work Phone: Comment on above:Expected: 07/17/2024 (Approximate), Expires: 07/17/2025Start: 07-17-2024 End: 25-80-4623QT Heart Perfusion W stress and W radionuclide IVNuclear Stress Test Cardiac Nuclear Medicine Routine Chest pressure Shortness of breath Expected: 07/17/2024 (Approximate), Expires: 07/17/2025[facility] Work Phone: Comment on above:Expected: 07/17/2024 (Approximate), Expires: 07/17/2025Start: 07-17-2024 End: 87-37-0771YF.doppler Carotid arteries - bilateralVascular US Carotid Artery Duplex Bilateral Vascular Ultrasound Routine Bilateral carotid artery stenosis Chest pressure Shortness of breath Expected: 07/17/2024 (Approximate), Expires: 07/17/2026[facility] Service Area Work Phone: Comment on above:Expected: 07/17/2024 (Approximate), Expires: 07/17/2026Start: 07-17-2024 End: 52-89-8249Xjedafm encounter [email or web address]/27/2025 10:45 AM EST Office Visit [address] [place] [address] Cady Espinosa MD [address] [facility] [address] [place], [place] [id number] [facility]: [facility]-50-5054Kjqggxf Directive Discussion Advance Directive DiscussionMercy Health St. Anne Hospitaltart: 01-01-2025Medicare Advantage Annual Wellness VisitMedicare Advantage Annual [facility] Start: 06-08-2024 End: 89-16-9244Zaurumd encounter [email or web address]/19/2024 10:45 AM EST Appointment [id number] [place] [address] [facility]: [facility]24 End: 80-93-9329Tzsmd metabolic 2000 panel - Serum or PlasmaBasic Metabolic Panel Lab Routine Uncontrolled hypertension Expected: 05/15/2024 (Approximate), [facility] Work [facility]: Comment on above:Expected: 05/15/2024 (Approximate), Expires: 05/08/2025Start: 05-08-2024 End: 79-91-8226AS Heart TransthoracicTransthoracic Echo Complete Echocardiography Routine Former smoker Shortness of breath Expected: 05/08/2024 (Approximate), Expires: 05/08/2026[facility] Service Area Work Phone: Comment on above:Expected: 05/08/2024 (Approximate), Expires: 05/08/2026Start: 93-86-6179Ndtkv-19 Vaccine ( season)Covid- 19 Vaccine ()[facility]: 40-30-1897QEJEY-19 Vaccine ( season)COVID-19 Vaccine ( season)[place]: 63-97-5380Otpadsxhm vaccinationInfluenza Vaccine (#1)[place]: 16-11-6424Kkdjkos referralMercy Health [facility] Work Phone: Start: 48-93-5429G-ray of cervical spineXR cervical spine w flex/extMansfield Hospitaltart: 84-92-8083Q-ray of lumbar spine, six views including bending viewsXR lumbar spine 6V w bending [facility]: 05-54-0590EY Cervical spine Views W flexion and W extensionMansfield Hospitaltart: 83-70-7756LB Lumbar spine ViewsMansfield Hospitaltart: 02-17-2022 End: 38-27-4516NewrvsxfsKettering Health [facility] Work Phone: Start: 10-50-3265Ivbghtasybfmy resection of bladder neoplasmOR Cysto/TURBT/Bladder Biopsy/Fulg (Not Applicable)[facility] Hospital[facility]: 02-17-2022 End: 67-82-1938Nwfljgrby to same day surgery centerDeparted Surgical Day Care [facility] Main CampusStart: 02-13-2022 End: 58-81-3658Jmyjfjs encounter procedureDeparted ClinicalKettering Health [facility]-Pre-Surgical TestingStart: 29-54-1225Cmtbnbjer aortic aneurysm screeningAbdominal Aortic Aneurysm (AAA) ScreeningCent[place]: 99-95-5259MTB High Risk: (Elderly (60+) or Population) (1 - Risk 60-74 years 1-dose series)RSV High Risk: (Elderly (60+) or Population) (1 - Risk 60-74 years 1-dose series)[place]: 25-85-9143RXL Vaccine (1 - Risk 60-74 years 1-dose series)RSV Vaccine (1 - Risk 60-74 years 1-dose series)[facility]: 02-03-1995 Diabetes ScreeningDiabetes ScreeningMercy Health St. Anne Hospitaltart: 82-39-3355Fbuvdmvbs for malignant neoplasm of colonMercy Health St. Anne Hospitaltart: 66-22-2635Rponv panelLipid ScreeningMercy Health St. Anne Hospitaltart: 85-78-8013Bfaairy ScreeningAnxiety Screening [facility]: 08-63-4087Obntlkpihf ScreeningDepression Screening [facility]: 96-25-7011Wrbcrdwj mellitus screeningDiabetes Screening [place]: 37-89-3724Vrevrjlst C screeningHepatitis C ScreeningCent[place]: 55-46-2605Cavfgvfdr aortic aneurysm screeningAbdominal Aortic Aneurysm ScreeningMercy Health [facility]: 47-37-6972Ibpkw panelLipid PanelCent[place]: 1951Medicare Annual Wellness VisitMedicare Annual Wellness Visit (AWV) [place]: 08-91-5661Wskwhzzhu for malignant neoplasm of colonCent[place]: 81-79-7742Tgipllz stimulating hormone measurementTSOkeene Municipal Hospital – OkeeneCT Abdomen and Pelvis W contrast IVCT ABD/PEL W IVCON Radiology Routine Malignant neoplasm of urinary bladder, unspecified site (HCC) 09/01/2024 3:07 PM EDT [facility] Work Phone: ct Chest W contrast IVCT CHEST W IVCON Radiology Routine Malignant neoplasm of urinary bladder, unspecified site (HCC) 09/01/2024 3:07 PM EDTCun[facility] hospitals [facility] ClinicDermatopathology examDermatopathology exam Pathology and Cytology Timed Neoplasm of unspecified behavior of bone, soft tissue, and skin Release Upon Ordering for 1 Occurrences starting 02/27/2025[facility] Work Phone: comment on above:Release Upon Ordering for 1 Occurrences starting 02/27/2025Microbial culture of sputumThe University Of Toledo Medical CenterMR Cervical spine WO and W contrast [facility] HospitalPatient referralKettering [facility] Work Phone: UA DIP OB, URINE (POC)UA DIP OB, URINE (POC) Lab Routine Malignant neoplasm of urinary bladder, unspecified site (HCC) 1 O ccurrences starting [address] [place] [address] Work Phone: comment on above:1 Occurrences starting 08/09/2024UA DIP OB, URINE (POC)UA DIP OB, URINE (POC) Lab Routine Malignant neoplasm of urinary bladder, unspecified site (HCC) 1 Occurrences starting 09/13/2024 [facility]Comment [facility] Occurrences starting 09/13/2024UA DIP, URINE (POC)UA DIP, URINE (POC) Lab Routine Malignant neoplasm of urinary bladder, unspecified site (HCC) Ordered: [address] [place] [address] Work Phone: Comment on above:Ordered: 08/02/2024UA DIP, URINE (POC)UA DIP, URINE (POC) Lab Routine Malignant neoplasm of urinary bladder, unspecified site (HCC) Ordered: [address] [place] [address] on above: Ordered: 08/09/2024UA DIP, URINE (POC)UA DIP, URINE (POC) Lab Routine Malignant neoplasm of urinary bladder, unspecified site (HCC) Ordered: [address] [place] [address] Work Phone: comment on above:Ordered: 08/16/2024UA DIP, URINE (POC)UA DIP, URINE (POC) Lab Routine Malignant neoplasm of urinary bladder, unspecified site (HCC) Ordered: [address] [place] [address] Work Phone: comcbol on above:Ordered: 08/30/2024UA DIP, URINE (POC)UA DIP, URINE (POC) Lab Routine Malignant neoplasm of urinary bladder, unspecified site (HCC) Ordered: [address] [place] [address] Work Phone: comsmfz on above:Ordered: 09/13/2024 Immunizations Immunization DateImmunizationNotesCare GzfrwxjzVilnjxed62-01-7872dilqigem calmette-dena vaccineJENNIFER AMBREEN [facility]06-17-2025bacillus calmette-dena vaccineJENNIFER AMBREEN [facility]06-11-2025bacillus calmette-dena vaccineJENNIFER AMBREEN [facility]02-24-2025influenza virus vaccine, unspecified formulationJr. Stepanic DO Work Phone: [facility] HospitalKvmeokuqag82-58-1022pwkfwr vaccine recombinant Lionel [employer] [facility]10-03-2023influenza virus vaccine, unspecified formulationPaSanteVet [facility]10-03-2023zoster vaccine recombinantPatrick [employer] [facility]10-27-2022Moderna Bivalent Booster VaccinationKaren MARES Work Phone: [facility] HospitalSowsvwvzhn45-16-2227UALK-HwT-5 (COVID-19) mRNAMUL.ORD!m30106Iyuvped NILL [facility]y10-07-2022influenza virus vaccine, unspecified formulationMichael NILL [facility] [place] 723800-07-2022Influenza, High-dose Seasonal, Quadrivalent, Preservative Free Karen MARES Work Phone: [facility] HospitalZkqexjmjry92-82-8720VADUM-49 mRNA-1273 (Moderna) MD Deandre Monterroso Work Phone: [facility]04-01-2021COVID-19 mRNA-1273 (Huma)MD Deandre Monterroso Work Phone: [facility] CenterComment on above: Result Comment: 2023-01-20: JGF7623-03-8771KJUMO-19 mRNA-1273 (Modernvee)MD Deandre Monterroso Work Phone: [facility] CenterComment on above: Result Comment: 2023-01-20: FSC7027-60-0802DZIK-KnD-4 (COVID-19) mRNA-1273 vaccinePatrick WHITNEY [facility] 12164965-55-9291wjnfztypv virus vaccine, unspecified formulationMichael NILL [facility] [place] 723802-03-2020Influenza, Seasonal, Quadrivalent, AdjuvantedMamark MARES Work Phone: [facility] HospitalAnofcnbvdr95-16-0975befaqcfqc virus vaccine, unspecified formulationMichael NILL [facility] [place] 723800-14-2020influenza, high dose seasonal, preservative-freeMamark MARES Work Phone: [facility] HospitalUtflzhtamx93-39-3823ofrwwwrbf virus vaccine, unspecified formulationMichael NILL [facility] [place] 723802-09-2019Seasonal, quadrivalent, recombinant, injectable influenza vaccine, preservative freeMamark MARES Work Phone: [facility] HospitalJwpfsmyclz59-12-4580lkmomunsu, injectable, quadrivalent, preservative Sakshi Andrade MD Work Phone: [place] [address]Tsbicu03-94-3290gnvbzhfal virus vaccine, unspecified formulationNorberto Andrade MD Work Phone: cpeoples hospitaland Ypjktd07-83-2661jyjyevlgt, unspecified formulationMichael NILL [facility]04-08-2019tetanus and diphtheria toxoids, adsorbed, preservative free, for adult use (2 Lf of tetanus toxoid and 2 Lf of diphtheria toxoid)Alex NILL [facility]04-23-2018pneumococcal polysaccharide vaccine, 23 valentMichael NILL [facility]02-01-2017pneumococcal conjugate vaccine, 13 valentMichael NILL [facility]01-09-2014tetanus toxoid, reduced diphtheria toxoid, and acellular pertussis vaccine, adsorbedMichael NILL [facility]09-20-2000Td(adult) unspecified formulationMichael NILL [facility] Payers DatePayer CategoryPayerPolicy ID2025Medicare [id number] 2021Medicare (Managed Care) [id number] [id number]5 [id number] 2.16.840.8.97462[id number] 2.16.840.1.699721.3.579.2.593 37-92-4818Zcwwqtf7837665 2.16.840.1.942280.3.579.2.59137-15-6246Iryxrob3820490 2.16.840.1.740521.3.579.2.83617-75-2337Sjeuake5691508 2.16.840.1.605968.3.579.2.50684-84-7363Idbvxea1046251 2.16.840.1.473613.3.579.2.10434-75-6369Orndvti1458940 2.16.840.1.535783.3.579.2.05048-86-5661Pqtvzov1434025 2.16.840.1.374708.3.579.2.19215-14-8814Hkyongd9218903 2.16.840.1.316999.3.579.2.65763-64-6460Sorkbpd6412999 2.16.840.1.142267.3.579.2.56857-55-4086Rzzyyrb0701571 2.16.840.1.789781.3.579.2.59460-08-2672Biggujx5854225 2.16.840.1.703119.3.579.2.76951-52-1372Pxkisbg5755208 2.16.840.1.079924.3.579.2.13386-30-5379Nromatm0086433 2.16.840.1.073445.3.579.2.63346-75-0784Qrnfbhk1404650 2.16.840.1.897092.3.579.2.19471-55-9705Acnfldt2807870 2.16.840.1.733503.3.579.2.00695-90-6579Ecebvah4876247 2.16.840.1.082327.3.579.2.98564-28-7521Nocnfhe5217316 2.16.840.1.544764.3.579.2.87852-46-7483Nosnrui2340977 2.16.840.1.475721.3.579.2.71502-40-8740Gdwnofp4688145 2.16.840.1.231927.3.579.2.42816-42-7240Wlnbhef53994914 2.16.840.1.940244.3.579.2.90066-39-1131Etbuhka83382842 2.16.840.1.465650.3.579.2.44348-05-0221Emvirhm48960260 2.16.840.1.873402.3.579.2.525961-97-5331Rcmeumg44017514 2.16.840.1.625206.3.579.2.764253-40-8274Qkeqpnl58778881 2.16.840.1.094752.3.579.2.491221-17-7137Vvqtcxx40816846 2.16.840.1.695822.3.579.2.703591-09-6240Uvxjdcc32305143 2.16.840.1.057804.3.579.2.790948-72-7650Snjhrpl68851546 2.16.840.1.438866.3.579.2.525834-43-9394Bpopudk40475219 2.16.840.1.819391.3.579.2.265624-80-4853Qapcdnj129913148 2.840.1.122740.3.579.2.195594-88-3704Lkjdngc072747214 2.840.1.662410.3.579.2.982767-54-9858Zferokz409935940 2.16.840.1.296111.3.579.2.21198-59-6443Mwdkwii484666582 2.840.1.811045.3.579.2.05325-24-0345Ylngwql411606880 2.84.1.420299.3.579.2.35070-38-0858Xjyueua017776403 2.840.1.345644.3.579.2.81682-30-9638Dnahkvq051077356 2.840.1.730808.3.579.2.91353-82-5192Npwnpka670659885 2.840.1.148059.3.579.2.23154-86-5852Anustjn518484915 2.840.1.333244.3.579.2.86581-52-7447Qawfjag947123746 2.840.1.715267.3.579.2.23094-65-1442Ihmbjeg82363381 2.840.1.027353.3.579.2.52508-65-0981Mziuvdb83081378 2.840.1.804873.3.579.2.73534-78-1031Jkvuyyt77527452 2.840.1.085341.3.579.2.093384-12-3047Vckkmke20752451 2.16.840.1.216700.3.579.2.288250-45-7602Tqwicuk60951900 2..840.1.331059.3.579.2.101225-48-3935Nzevtar5915818 2.16.840.1.449191.3.579.2.673195-96-8811Fegvrwp8452101 2..840.1.710255.3.579.2.015323-81-9938Iqgncdm5324287 2..840.1.827171.3.579.2.209558-51-7281Vsfdicq0535941 2.840.1.923621.3.579.2.980527-75-6967Jxfgqmz1893370 2.0.1.531016.3.579.2.497245-46-7321Csgkbrx01765381 2.840.1.610336.3.579.2.83359-77-1899Xnabzia12432607 2.840.1.661755.3.579.2.90774-54-1461Mxuzwyb42140175 2.0.1.905840.3.579.2.38551-55-9676Bgmoczd09627598 2.840.1.570216.3.579.2.49557-87-3394Fqnaqch50045339 2.840.1.218822.3.579.2.98829-90-4746Aarcslw97276346 2.840.1.527415.3.579.2.02704-63-4772Hyokhzo72190155 2.840.1.135608.3.579.2.87198-61-8258Qowxayj60996693 2.16840.1.456114.3.579.2.70142-18-2444Vkkcucv01090384 2..840.1.948423.3.5[id number]-l4ew-86d1-44d2-g6ir52j95qq1Lfjxgwb Health [id number] v97547kp-6j6y-6nyt-3388-8xg29z1xhe57MfglvfyGeigkjomp [facility] CenterVdfgrjakkU8016893284 6v274170-8dx9-3951-8cp5-99a3a52ey375Bqhheul77074308 2.16.840.1.068349.3.579.2.263Yahfmjs81871270 2.0.1.510658.3.579.2.531 Vspymec03899195 2.0.1.189989.3.579.2.531 Social History DateTypeDetailFacilityStart: 10-17-2021 End: 39-00-8602Kwagswl smoking status NHISEx-smoker (finding)[facility] CenterComment on above:pt quit smoking 10+ yrs agoStart: 81-97-3960Xao [facility]igned At [facility]: 65-06-7048Tcnwewh smoking statusNever smoked tobacco (finding)[facility] Tobacco smoking statusNeverExec[facility] Comment on above:pt quit smoking 10+ yrs agoStart: 05-08-2024 End: 73-62-9676Vni Assigned At [facility] End: 63-49-3322Tisymru of tobacco useCurrent smokerKettering Health Greene Memorial Work Phone: End: 00-85-5527Rcgnona of tobacco useCigarette SmokerK[facility]tering Health [facility] Memorial Work Phone: Start: 01-12-2023 End: 05-34-7986Apauevx use and exposureSmokeless tobacco non-userK[facility]tering Health [facility] Memorial Work Phone: Start: 05-08-2024 End: 14-51-1163Gzdflvupg beverage intakeCurrent drinker of alcohol (finding) [facility] Work Phone: Start: 05-08-2024 End: 03-51-1282Iuztixv of Social functionUnGrant Hospital Work Phone: Start: 53-45-4640Eziiamh CommentsociallyK[facility]tering Health [facility] Memorial Work Phone: Start: 72-76-1977Ekz assigned at birthNot on file [facility] Work Phone: Start: 04-28-2024 End: 39-12-6751Erdqxcvd to SARS-CoV-2 (event)Not sureKettering Health Greene MemorialStart: 09-09-2018 End: 93-40-0630HdiManw (finding)[facility]: 20-50-2918Nnjrqke Commentcaffeine 3-4 cups per dayNOMS HealthcareSexual OrientationGuernsey Memorial Hospital Medical Equipment Procedure CodeEquipment CodeEquipment Original TextEquipment IdentifierDates Transurethral resection of bladder tumor (TURBT) with cystoscopyPolymeric ureteral stent()[id number] FDAStart: 24-98-4414Paakzwllfahsf, spine, cervical, posterior approachBone-screw internal spinal fixation system, non-sterile()[id number] FDAStart: 67-95-6133Wrnbobzscohrp, spine, cervical, posterior approachBone-screw internal spinal fixation system, non-sterile()[id number] FDAStart: 52-53-8904Awqwpuxjdgruq, spine, cervical, posterior approachBone-screw internal spinal fixation system, non-sterile()[id number] FDAStart: 97-81-2032Drdxpnwoiaozn, spine, cervical, posterior approachBone-screw internal spinal fixation system, non-sterile()[id number] FDAStart: 94-56-6600Bpakrhaqtfdba, spine, cervical, posterior approachBone-screw internal spinal fixation system, non-sterile()[id number] FDAStart: 04-18-2020 Goals DatePatient GoalDesired Activity/State Functional Status LnjeRmpicugdnnJizoxvDfkodmoj59-72-6653Prjfzsnzgp StatusN/[facility]01-22-2025Functional StatusN/AExec[facility] [place] 723801-19-2024Functional StatusN/[facility] 61-46-0282Drthimrhjk StatusN/[facility]04-15-2024Functional StatusN/A[facility]11-07-2023 Functional StatusN/[facility]08-23-2023Functional StatusN/A General Surgery Xmsjsgkh13-36-0045Wcimveuacg StatusN/[facility]09-06-2022Functional StatusN/A[facility] Clinical Notes 11-04-2021 to 02-27-2025 Note Date & IscmUawhEmmtpgul16-25-5968 History of Present illness Narrative* Vasu Mackey [...] limited to risks of scarring, darker or emergency medicine nurse practitioner pigmentary changes, recurrence, incomplete removal and infection. [...] Next Visit: as scheduled documented in this encounterScotland County Memorial HospitalLyrbnlzmhb79-36-5618 Hospital Discharge instructions Patient Education 02/26/2025 08:49:06 [...] if anything looks unusual. Males with a qbgbvh-zpzx-ndywbo risk for skin cancer may want to see a methods specialist engineer (steel erector apprentice) for an annual body check. Where to find more information [employer]: cancer.org Centers for Disease Control and Prevention: cdc.gov National Cancer Brohman: cancer.gov Contact a health care provider if: [...] provider. Document Revised: 06/15/2023 Document Reviewed: 12/28/2022 [employer] Patient Education 2023 Digital Performance. Follow Up Care 10/24/2024 10:44:10 With:DEVONTE NOBLE, Lionel Burgos, URL Address: [address] [place] [phone] When: Unknown Comments:3 mos for cysto/bt ck [facility] 09-08-2025 NotePatient Education Oncology Cancer Screening [...] if anything looks unusual. Males with a rmaitk-ycvb-ogjfxl risk for skin cancer may want to see a methods specialist engineer (dermatologi (more content not included)...[facility]07-29-2025 History of Present illness Narrative* Jr. [...] NO PT PAIN MGMT; MULTIPLE INJ TRIED SANDER WOODEN PENCILS; SOME TEMP RELIEF PT DISCONTINUED DICLOFENAC DUE TO HIS PHARMACY SPECIALIST- WONDERING WHAT ELSE HE COULD TAKE-C/O LATERAL [...] HOME MEDICATIONS: Current Outpatient Medications Medication Instructions Disfepauakv-Vgcgkagsw-Pejqqq (Trelegy Ellipta) 100-62.5-25 MCG/ACT aerosol powder Inhale. [...] length. He has been taking omega XL aoai-gzu-vojpyml and had good relief with this. We [...] for requiring urgent evaluation. documented in this encounterScotland County Memorial HospitalYebriqvdfq19-49-2982 NotePatient Education Oncology Bladder Cancer Bladder cancer [...] Follow these instructions at home: ??? Take ahpr-uql-izrehni and prescription medicines only as told by [...] important. Where to find more information ??? [employer] (ACS): cancer.org ??? National Cancer Brohman (NCI): cancer.gov Contact a health care provider [...] This information is n (more content not included)...[facility] 12-13-2024 Instructions* Patient Instructions* Norberto Andrade MD - 12/13/2024 1:46 PM EDT Blood work today F/u with Urology . documented in this encounterShelby Memorial Hospital06-25-2025 History of Present illness Narrative* Norberto Andrade MD - 12/13/2024 1:00 PM EDT Images from the original note were not included. PATIENT NAME: Mary Diaz CLINIC NO.: [id number] ATTENDING PHYSICIAN: Norberto Andrade MD DATE OF SERVICE: 12/13/[address] Lionel Whitney [address] [facility] [address] thank you for referring Mary Diaz for [...] atleast 1 fragment without obvious stromal invasion (signal intelligence analyst). 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 Urology recommended induction [...] tablet by mouth at bedtime as needed. gvqzzjqekhz-qydtbrwlf-xefvxbot (TRELEGY ELLIPTA) 100-62.5-25 mcg inhalation powder = [...] Take 100 mg by mouth as needed. hacupwocayv-kpmeuqthg-kcoxpboh (TRELEGY ELLIPTA) 100-62.5-25 mcg inhalation powder Inhale [...] Range Status 09/13/2024 8.7 % Final Abs [place] Date Value Ref Range Status 09/13/2024 0.72 [...] atleast 1 fragment without obvious stromal invasion (signal intelligence analyst). 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 - Urology recommended [...] here if needed. Dear Dr. Lionel Whitney [address] [place] [address] thank you for allowing me to participate in [facility], if there are any questions or concerns please do not hesitate to contact me at the number below. I spent a total of 20 minutes on the date of the service which included preparing to see the patient, bumx-ig-xorc patient care, completing clinical documentation, obtaining and/or reviewing separately obtained history, performing a medically appropriate examination, counseling and educating the pat ient/family/caregiver, ordering medications, tests, or procedures, communicating with other HCPs (not separately reported), independently interpreting results (not separately reported), communicatingresults to the patient/family/caregiver, and care coordination (not separately reported). Norberto Andrade MD. Hematology/Medical Oncology [facility] [place] [phone] CC: documented in this encounterShelby Memorial Hospital06-25-2025 NoteHNO ID: [id number] Author: NORBERTO ANDRADE MD Service: ? Author Type: Physician Type: Progress Notes Filed: 12/13/2024 14:20 Note Text: PATIENT NAME: [facility] NO.: [id number] ATTENDING PHYSICIAN: Norberto Andrade MD DATE OF SERVICE: 12/13/[address] Lionel Whitney [address] [place] [address] thank you for referring Mary Diaz for [...] atleast 1 fragment without obvious stromal invasion (signal intelligence analyst). 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 Urology recommended induction [...] tablet by mouth at bedtime as needed. jqknpqmtqjt-jwnjevcxl-gfekbbqf (TRELEGY ELLIPTA) 100-62.5-25 mcg inhalation powder = [...] Take 100 mg by mouth as needed. uakrekvfuxv-uwhimvjpc-qhzfxqyd (TRELEGY ELLIPTA) 100-62.5-25 mcg inhalation powder Inhale [...] SHOULDER SURGERY HX Reconstructi (more content not included)...[facility]06-23-2025 NoteUT Cardiology - [facility] Subjective Mary Diaz is a 74 y.o. year old male patient being seen for to establish care as a new patient. Per patient he has been seeing another Photo Tube Assembler for [facility], Patient states he has had numerous test and has not been told the results and has been given medication and knows nothing as to why he is taking these medication. Patient states he is here for a second opinion. Patient was sent to cardiology by PROPERTY CARETAKER for uncontrolled hypertension. Patient Active Problem List [...] 75 mg EC tabl (more content not included)...[facility]06-18-[facility] History of Present illness Narrative* Bradford Colmenares, [...] NO PT PAIN MGMT; MULTIPLE INJ TRIED SANDER WOODEN PENCILS; SOME TEMP RELIEF S/P CORTISONE INJ - [...] 200 mg, Oral, Daily, Take with food Bezgspbaqnc-Rkrlnjoii-Ilgsag (Trelegy Ellipta) 100-62.5-25 MCG/ACT aerosol powder Inhale. [...] for requiring urgent evaluation. documented in this encounterScotland County Memorial HospitalFnczhxqohr21-36-9304 Hospital Discharge instructions Patient Education 12/05/2024 09:58:02 [...] cells. Follow these instructions at home: Take vfps-erq-rgnvdan and prescription medicines only as told by [...] is important. Where to find more information [employer] (ACS): cancer.org National Cancer Brohman (NCI): cancer.gov Contact a health care provider [...] provider. Document Revised: 05/18/2022 Document Reviewed: 05/18/2022 [employer] Patient Education 2023 Digital Performance. Follow Up Care 11/20/2024 11:57:52 With:AMBREEN HELMS, LAUREN Higginbotham, URL Address: [address] [place] [address] When:Within 1 Week(s) [facility] 06-17-2025 NotePatient Education Oncology Bladder Cancer [...] Follow these instructions at home: ??? Take ndsn-dkq-pgqramb and prescription medicines only as told by [...] important. Where to find more information ??? [employer] (ACS): cancer.org ??? National Cancer Brohman (NCI): cancer.gov Contact a health care provider [...] This information is n (more content not included)...[facility] 11-29-2024 NotePatient Education Oncology Bladder Cancer [...] Follow these instructions at home: ??? Take cuox-ljo-tuehpkt and prescription medicines only as told by [...] important. Where to find more information ??? [employer] (ACS): cancer.org ??? National [employer] (NCI): cancer.gov Contact a health care provider [...] This information is n (more content not included)...[facility] 10-27-2024 History of Present illness Narrative* [...] INJ 10/06/24 PAIN MANAGEMENT; MULTIPLE INJ TRIED SANDER WOODEN PENCILS; SOME TEMP RELIEF CONTINUES TO HAVE LATERAL [...] requiring urgent evaluation. Visit was preformed using [employer] shift lead speech recognition. documented in this encounterScotland County Memorial [id number] Hospital Discharge instructions Patient Education 10/24/2024 10:28:54 [...] Up Care 09/04/2024 13:08:22 With:Lionel WHITNEY Address: [address] [place], [place] [address] Business (1) When: Unknown Comments:Office will call to schedule follow up [facility] [phone] NotePatient Education Custom Cystoscopy ??? Voiding after [...] if you have a fever over 100 degrees.[facility] 10-09-2024 NotePatient Education Urology Cystoscopy Cystoscopy [...] including vitamins, herbs, eye drops, creams, and kece-cjl-gglfvcl medicines. ??? Any problems you or family [...] tells you to take them. ??? Taking enot-xtr-kxfodpz medicines, vitamins, herbs, and supplements. Tests You [...] these instructions at home: Medicines ??? Take xuyz-ycf-cmsgwqb and prescription medicines only as told by [...] testing (biopsy) during your (more content not included)...[facility]04-18-2025 History of Present illness Narrative* SUZAN [...] NO MRI PAIN MANAGEMENT; MULTIPLE INJ TRIED SANDER WOODEN PENCILS; SOME TEMP RELIEF C/O PAIN LATERAL HIP-CONSTANT [...] requiring urgent evaluation. Visit was preformed using [employer] shift lead speech recognition. documented in this encounterScotland County Memorial [id number] NoteHNO ID: [id number] Author: JEFFREY BABB RN Service: ? Author [...] free for discharge when finished. Jeffrey Babb RNOhiohealth O'Bleness Hospital03-26-2025 History of Present illness Narrative* Jeffrey Babb [...] finished. Jeffrey Babb, NATHALIE documented in this encounterShelby Memorial Hospital03-26-2025 NoteHNO ID: [id number] Author: SUZANNA WATERS MA Service: ? Author Type: Translator Deaf Type: Progress Notes Filed: 09/13/2024 13:46 Note Text: UA performed as ordered. [facility] History of Present illness Narrative* Suzanna Waters MA - 09/13/2024 1:45 PM EDT UA performed as ordered. Suzanna Waters MA documented in this encounterShelby Memorial Hospital03-26-2025 Instructions* Patient Instructions* Norberto Andrade MD - 09/13/2024 1:09 PM EDT Last BCG treatment today Labs today F/u with urology F/u in 3 months documented in this encounterShelby Memorial Hospital03-26-2025 History of Present illness Narrative* Norberto Andrade MD - 09/13/2024 1:00 PM EDT Images from the original note were not included. PATIENT NAME: Mary Diaz [facility] NO.: [id number] ATTENDING PHYSICIAN: Norberto Andrade MD DATE OF SERVICE: 09/13/[address] Lionel Whitney [address] [facility] [address] thank you for referring Mary Diaz for [...] atleast 1 fragment without obvious stromal invasion (signal intelligence analyst). 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 Urology recommended induction [...] tablet by mouth at bedtime as needed. rcqudbpfsoc-zxzbofvuw-mgfnwsyx (TRELEGY ELLIPTA) 100-62.5-25 mcg inhalation powder = [...] Take 100 mg by mouth as needed. uxzxbaveahy-exvkqmiba-vhpjhtpg (TRELEGY ELLIPTA) 100-62.5-25 mcg inhalation powder Inhale [...] Range Status 08/16/2024 8.8 % Final Abs [place] Date Value Ref Range Status 08/16/2024 0.96 [...] atleast 1 fragment without obvious stromal invasion (signal intelligence analyst). 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 - Urology recommended [...] Dr. Lionel Whitney [address] [place] [address] thank you for allowing me to participate in Mary Diaz care, if there are any questions or concerns please do not hesitate to contact me at the number below. I spent a total of 30 minutes on the date of the service which included preparing to see the patient, nsoi-sk-jabe patient care, completing clinical documentation, obtaining and/or reviewing separately obtained history, performing a medically appropriate examination, counseling and educating the pat ient/family/caregiver, ordering medications, tests, or procedures, communicating with other HCPs (not separately reported), independently interpreting results (not separately reported), communicatingresults to the patient/family/caregiver, and care coordination (not separately reported). Norberto Andrade MD. Hematology/Medical Oncology [facility] [phone] CC: documented in this encounterShelby Memorial Hospital03-26-2025 NoteHNO ID: [id number] Author: NORBERTO ANDRADE MD Service: ? Author Type: Physician Type: Progress Notes Filed: 09/13/2024 13:18 Note Text: PATIENT NAME: Mary Diaz CLINIC NO.: [id number] ATTENDING PHYSICIAN: Norberto Andrade MD DATE OF SERVICE: 09/13/[address] Lionel Whitney [address] [place] [address] thank you for referring Mary Diaz for [...] atleast 1 fragment without obvious stromal invasion (signal intelligence analyst). 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 Urology recommended induction [...] tablet by mouth at bedtime as needed. bfenjtnjlvs-dmikjxwcx-veupghcv (TRELEGY ELLIPTA) 100-62.5-25 mcg inhalation powder = [...] Take 100 mg by mouth as needed. hpghnaufsas-rsbmsfehb-ogpgmkvj (TRELEGY ELLIPTA) 100-62.5-25 mcg inhalation powder Inhale [...] changes in hear (more content not included)... [facility]03-14-[facility] History of Present illness Narrative* Porsha Smith [...] PATIENT PRESENTS WITH AN IMPLANTABLE OR ATTACHED OFFAL TRIMMER: No RADIOLOGY DEPARTMENT: CT; Exam(s) Completed: Chest Abdomen Pelvis PERIPHERAL IV DATA: Site assessment: Clean,Dry and Intact, Site disposition Discontinued SIGNED BY: STEVE aC) September 01, 2024 3:08 PM documented in this encounterShelby Memorial Hospital03-14-2025 NoteHNO ID: [id number] Author: REJI FUENTES RT(R) Service: ? Author [...] PATIENT PRESENTS WITH AN IMPLANTABLE OR ATTACHED OFFAL TRIMMER: No RADIOLOGY DEPARTMENT: CT; Exam(s) Completed: Chest Abdomen Pelvis PERIPHERAL IV DATA: Site assessment: Clean,Dry and Intact, Site disposition Discontinued SIGNED BY: RT Roby(Aubrey) September 01, 2024 3:08 [facility]03-14-2025 NoteHNO ID: [id number] Author: PORSHA SMITH RN Service: ? Author [...] Diaz DATE: September 01, 2024 TIME: 1:15 [facility]03-12-2025 NoteHNO ID: [id number] Author: SUZANNA WATERS MA Service: ? Author Type: Translator Deaf Type: Progress Notes Filed: 08/30/2024 13:24 Note Text: UA performed as ordered. Suzanna Waters [facility] 08-30-2024 History of Present illness Narrative* Suzanna Waters MA - 08/30/2024 1:21 PM EDT UA performed as ordered. Suzanna Waters MA documented in this encounterShelby Memorial Hospital03-12-2025 NoteHNO ID: [id number] Author: ALICE PEARCE RN Service: ? Author [...] free for discharge when finished. Alice Pearce RNOhiohealth O'Bleness Hospital03-12-2025 History of Present illness Narrative* Alice Pearce [...] finished. Alice Pearce RN documented in this encounterShelby Memorial Hospital03-05-2025 NoteHNO ID: [id number] Author: DAISY YOON LSW Service: ? Author Type: Court Stenographer Type: Progress Notes Filed: 08/23/2024 16:37 Note Text: SW attempted to meet with Patient today. He was with a nurse at the time of the attempt. SW will try again to meet with Patient to introduce SW services and complete a psychosocial assessment. RADHA Leary Goals of Care Advance Directives are not on file.[facility]03-05-2025 History of Present illness Narrative* Daisy Yoon LSW - 08/23/2024 4:36 PM EST SW attempted to meet with Patient today. He was with a nurse at the time of the attempt. SW will try again to meet with Patient to introduce SW services and complete a psychosocial assessment. RADHA Leary Goals of Care Advance Directives are not on file. documented in this encounterShelby Memorial Hospital03-05-2025 NoteHNO ID: [id number] Author: NYDIA LARA RN Service: ? Author [...] well. 1624- patient d/c'd home. Nydia Lara RNOhiohealth O'Bleness Hospital03-05-2025 History of Present illness Narrative* Nydia Lara RN - 08/23/2024 4:05 PM EST 1315- Patient arrived to infusion room in stable condition. Patient's VSS, 139/81 56, 16, 97.5 F 99% RA. Collected urine for UA and sent to MI station for POC testing. Awaiting results. Patient [...] home. Nydia Lara RN documented in this encounterShelby Memorial Hospital03-05-2025 NoteHNO ID: [id number] Author: SANTOSH DEL RIO MA Service: ? Author Type: Translator Deaf Type: Progress Notes Filed: 08/23/2024 13:29 Note Text: UA performed as ordered. Santosh Del Rio [facility]03-05-2025 History of Present illness Narrative* Santosh Del Rio MA - 08/23/2024 1:28 PM EST UA performed as ordered. Santosh Del Rio MA documented in this encounterShelby Memorial Hospital02-26-2025 NoteHNO ID: [id number] Author: LAUREN JOHNSON, NATHALIE Service: ? Author [...] without difficulty and approx 300cc urine in bag.[facility]02-26-20[facility] History of Present illness Narrative* Lauren Johnson [...] 300cc urine in bag. documented in this encounterShelby Memorial Hospital02-26-2025 NoteHNO ID: [id number] Author: CYDNEY HONEYCUTT MA Service: ? Author Type: Translator Deaf Type: Progress Notes Filed: 08/16/2024 13:53 Note Text: Back office UA test performed. Results entered in [employer] and doctor notified. [facility]02-26-[facility] History of Present illness Narrative* Cydney Honeycutt MA - 08/16/2024 1:48 PM EST Back office UA test performed. Results entered in [employer] and doctor notified. Cydney Honeycutt MA documented in this encounterShelby Memorial Hospital02-26-2025 Instructions* Patient Instructions* Norberto Andrade MD - 08/16/2024 1:25 PM EST Treatment today and every week Ordered CT scans F/u in 4 weeks [place] encounterBen[place] [address]26-[address]25 History of Present illness Narrative* Norberto Andrade MD - 08/16/2024 1:00 PM EST Images from the original note were not included. PATIENT NAME: Mary Diaz CLINIC NO.: [id number] ATTENDING PHYSICIAN: Norberto Andrade MD DATE OF SERVICE: 08/16/[address] Lionel Whitney [address] [facility] [address] thank you for referring Mary Diaz for [...] atleast 1 fragment without obvious stromal invasion (signal intelligence analyst). 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 Urology recommended induction [...] Take 100 mg by mouth as needed. amilgwkocfu-jwhpckvbj-ifhhllnp (TRELEGY ELLIPTA) 100-62.5-25 mcg inhalation powder Inhale [...] Range Status 07/26/2024 9.2 % Final Abs [place] Date Value Ref Range Status 07/26/2024 0.62 [...] atleast 1 fragment without obvious stromal invasion (signal intelligence analyst). 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 - Urology recommended induction BCG x 6 treatments. PLAN: - Doing well - Proceed with week 3 intravesical BCG treatment today. - Tolerating well so far. - Ordered CT scans - Check CBC CMP PSA. - All his questions answered in detail - F/u in [address] Lionel Whitney [address] [place] [address] thank you for allowing me to participate in Mary Diaz care, if there are any questions or concerns please do not hesitate to contact me at the number below. I spent a total of 30 minutes on the date of the service which included preparing to see the patient, qepx-re-hlfv patient care, completing clinical documentation, obtaining and/or reviewing separately obtained history, performing a medically appropriate examination, counseling and educating the pat ient/family/caregiver, ordering medications, tests, or procedures, communicating with other HCPs (not separately reported), independently interpreting results (not separately reported), communicatingresults to the patient/family/caregiver, and care coordination (not separately reported). Norberto Andrade MD. Hematology/Medical Oncology [facility] [phone] CC: documented in this encounterShelby Memorial Hospital02-26-2025 NoteHNO ID: [id number] Author: NORBERTO ANDRADE MD Service: ? Author Type: Physician Type: Progress Notes Filed: 08/16/2024 13:29 Note Text: PATIENT NAME: Mary Diaz CLINIC NO.: [id number] ATTENDING PHYSICIAN: Norberto Andrade MD DATE OF SERVICE: 08/16/[address] Lionel Whitney [address] [place] [address] thank you for referring Mary Diaz for [...] atleast 1 fragment without obvious stromal invasion (signal intelligence analyst). 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 Urology recommended induction [...] Take 100 mg by mouth as needed. aqwzflyxgai-zfaponmea-cwsatgmy (TRELEGY ELLIPTA) 100-62.5-25 mcg inhalation powder Inhale [...] No nipple change or (more content not included)...[facility]02-[facility]25 NoteHNO ID: [id number] Author: ALICE PEARCE RN Service: ? Author [...] ready for discharge when dressed. Alice Pearce RNOhiohealth O'Bleness Hospital02-19-2025 History of Present illness Narrative* Alice Pearce [...] 1544: Pt tolerating well. documented in this encounterShelby Memorial Hospital02-19-2025 NoteHNO ID: [id number] Author: MONSE VIDAL RN Service: ? Author [...] turn with no complaints. 1544: Pt tolerating well.[facility]02-19-2025 NoteHNO ID: [id number] Author: CYDNEY HONEYCUTT MA Service: ? Author Type: Translator Deaf Type: Progress Notes Filed: 08/09/2024 13:50 Note Text: Back office UA test performed. Results entered in [employer] and doctor notified. Cydney Honeycutt [facility]02-19-2025 History of Present illness Narrative* Cydney Honecyutt MA - 08/09/2024 1:36 PM EST Back office UA test performed. Results entered in [employer] and doctor notified. Cydney Honeycutt MA documented in this encounterShelby Memorial Hospital02-17-2025 Telephone encounter Note * Telephone Encounter - [...] after hours number protocol. Ingrid Ugalde RN [facility] Work Phone: [phone]) 871-605902-17-2025 Miscellaneous Notes* Telephone Encounter - Ingrid Ugalde [...] protocol. Ingrid Ugalde RN documented in this encounterShelby Memorial Hospital02-12-2025 NoteHNO ID: [id number] Author: KERON KELLY RN Service: ? Author [...] PSS for follow up appointments. Keron Kelly RNOhiohealth O'Bleness Hospital02-12-2025 History of Present illness Narrative* Keron Kelly, [...] appointments. Keron Kelly RN documented in this encounterShelby Memorial Hospital02-12-2025 Instructions* Patient Instructions* Norberto Andrade MD - 08/02/2024 9:05 AM EST BCG treatment today and every week F/u in 2 weeks documented in [place] encounterBen[place] [address]-12-2025 NoteHNO ID: [id number] Author: SANTOSH DEL RIO MA Service: ? Author Type: Translator Deaf Type: Progress Notes Filed: 08/02/2024 08:51 Note Text: UA performed as ordered. Santosh Del Rio [facility]02-12-2025 History of Present illness Narrative* Santosh Del Rio MA - 08/02/2024 8:49 AM EST UA performed as ordered. Santosh Del Rio MA documented in this encounter[address]12-[address]25 History of Present illness Narrative* Norberto Andrade MD - 08/02/2024 8:30 AM EST Images from the original note were not included. PATIENT NAME: Mary Diaz [facility] NO.: [id number] ATTENDING PHYSICIAN: Norberto Andrade MD DATE OF SERVICE: 08/02/[address] Lionel Whitney [address] [facility] [address] thank you for referring Mary Diaz for [...] atleast 1 fragment without obvious stromal invasion (signal intelligence analyst). 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 Urology recommended induction [...] Take 100 mg by mouth as needed. quihkenourd-uxkskbxqn-wlwqjzab (TRELEGY ELLIPTA) 100-62.5-25 mcg inhalation powder Inhale [...] Range Status 07/26/2024 9.2 % Final Abs [place] Date Value Ref Range Status 07/26/2024 0.62 [...] atleast 1 fragment without obvious stromal invasion (signal intelligence analyst). 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 - Urology recommended induction BCG x 6 treatments. PLAN: - Doing well - Proceed with week 1 intravesical BCG treatment today. - Recent blood work is essentially unremarkable. - All his questions answered in detail - F/u in [address] Lionel Whitney [address] [place] [address] thank you for allowing me to participate in Mary Diaz care, if there are any questions or concerns please do not hesitate to contact me at the number below. I spent a total of 30 minutes on the date of the service which included preparing to see the patient, ckww-me-qgbj patient care, completing clinical documentation, obtaining and/or reviewing separately obtained history, performing a medically appropriate examination, counseling and educating the pat ient/family/caregiver, ordering medications, tests, or procedures, communicating with other HCPs (not separately reported), independently interpreting results (not separately reported), communicatingresults to the patient/family/caregiver, and care coordination (not separately reported). Norberto Andrade MD. Hematology/Medical Oncology [facility] [place] [phone] CC: documented in this encounterShelby Memorial Hospital02-12-2025 NoteHNO ID: [id number] Author: NORBERTO ANDRADE MD Service: ? Author Type: Physician Type: Progress Notes Filed: 08/02/2024 09:15 Note Text: PATIENT NAME: Mary Diaz [facility] NO.: [id number] ATTENDING PHYSICIAN: Norberto Andrade MD DATE OF SERVICE: 08/02/[address] Lionel Whitney [address] [facility] [address] thank you for referring Mary Diaz for [...] atleast 1 fragment without obvious stromal invasion (signal intelligence analyst). 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 Urology recommended induction [...] Take 100 mg by mouth as needed. sjfaabrnrbb-pfwpanwka-wfvpkozy (TRELEGY ELLIPTA) 100-62.5-25 mcg inhalation powder Inhale [...] No pain to percussion (more content not included)...[facility]02-11-20[facility] Telephone encounter Note* Telephone Encounter - Esther Patterson - 08/01/2024 12:07 PM EST Spoke with patient over the phone today. Patient is active with [employer], LOC 80%, $0 deductible has $0 remaining, $3500 OOP has $3400 remaining. Estimate shows patient financial responsibility is $134.16 for each treatment in 2024 until oop max is reached. Patient stated understanding. Radha hurtado #[id number]. There is currently no Bladder funding available, but will add him to my wait list. [employer] completed over the phone. He was very appreciative of my phone call. [facility]02-11-2025 Miscellaneous Notes* Telephone Encounter - Esther Patterson - 08/01/2024 12:07 PM EST Spoke with patient over the phone today. Patient is active with [employer], LOC 80%, $0 deductible has $0 remaining, $3500 OOP has $3400 remaining. Estimate shows patient financial responsibility is $134.16 for each treatment in 2024 until oop max is reached. Patient stated understanding. Re bryant #[id number]. There is currently no Bladder funding available, but will add him to my wait list. Leatha completed over the phone. He was very appreciative of my phone call. documented in this encounterShelby Memorial Hospital02-05-2025 NoteHNO ID: [id number] Author: INGRID UGALDE RN Service: ? Author [...] minutes REFERRAL (RECOMMENDATION): N/A Ingrid Ugalde RN Pharmaceutical Compounding Supervisor Pre Chemo Patient identified by name and date of . YES Confirmed date and time for chemotherapy ? YES Other appointments (labs, imaging) discussed? YES Discussed where to park (network architect), charge for parking NO Discussed where to [...] intervesicular mitomycin in the past Ingrid Ugalde RNOhiohealth O'Bleness Hospital02-05-2025 History of Present illness Narrative* Ingrid Ugalde [...] minutes REFERRAL (RECOMMENDATION): N/A Ingrid Ugalde RN Pharmaceutical Compounding Supervisor Pre Chemo Patient identified by name and date of . YES Confirmed date and time for chemotherapy ? YES Other appointments (labs, imaging) discussed? YES Discussed where to park (network architect), charge for parking NO Discussed where to [...] past Ingrid Ugalde RN documented in this encounterShelby Memorial Hospital01-29-2025 Instructions* Patient Instructions* Norberto Andrade MD - 07/19/2024 11:04 AM EST Chemo teach for intravesical BCG Start treatment in 2 weeks F/u in 2 weeks documented in this encounterShelby Memorial Hospital01-29-2025 History of Present illness Narrative* Norberto Andrade MD - 07/19/2024 11:00 AM EST Images from the original note were not included. PATIENT NAME: Mary Diaz [facility] NO.: [id number] ATTENDING PHYSICIAN: Norberto Andrade MD DATE OF SERVICE: July 19, [address] Lionel Whitney [address] [facility] [address] thank you for referring Mary Diaz for [...] atleast 1 fragment without obvious stromal invasion (signal intelligence analyst). 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 Urology recommended induction [...] atleast 1 fragment without obvious stromal invasion (signal intelligence analyst). 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 - Urology recommended induction BCG x 6 treatments. - We will start him on weekly BCG treatments after 2 weeks from today - Check CBC CMP - All his questions answered in detail - F/u in [address] Lionel Whitney [address] [facility] [address] thank you for allowing me to participate in Mary Diaz care, if there are any questions or concerns please do not hesitate to contact me at the number below. I spent a total of 60 minutes on the date of the service which included preparing to see the patient, zven-uj-kvfr patient care, completing clinical documentation, obtaining and/or reviewing separately obtained history, performing a medically appropriate examination, counseling and educating the pat ient/family/caregiver, ordering medications, tests, or procedures, communicating with other HCPs (not separately reported), independently interpreting results (not separately reported), communicatingresults to the patient/family/caregiver, and care coordination (not separately reported). Norberto Andrade MD. Hematology/Medical Oncology [facility] [place] [phone] CC: documented in this encounterShelby Memorial Hospital01-29-2025 NoteHNO ID: [id number] Author: NORBERTO ANDRADE MD Service: ? Author Type: Physician Type: Progress Notes Filed: 07/19/2024 11:42 Note Text: PATIENT NAME: Mary Diaz [facility] NO.: [id number] ATTENDING PHYSICIAN: Norberto Andrade MD DATE OF SERVICE: July 19, [address] Lionel Whitney [address] [facility] [address] thank you for referring Mary Diaz for [...] atleast 1 fragment without obvious stromal invasion (signal intelligence analyst). 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 Urology recommended induction [...] atleast 1 fragment without obvious stromal invasion (signal intelligence analyst). 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 - Urology recommended induction BCG x 6 treatments. - We will start him on weekly BCG treatments after 2 weeks from today - Check CBC CMP - All his questions answered in detail - F/u in [address] Lionel Whitney [address] [place] [address] thank you for allowing me to participate in Mary Diaz [facility], if there are any questions or concerns please do not hesitate to contact me at the number below. I spent a total of 60 minutes on the date of the service which included preparing to see the patient, jncn-rk-waau patient care, completing clinical documentation, obtaining and/or reviewing separately obtained history, performing a medically appropriate examination, counseling and educating the patient/family/caregiver, ordering medi (more content not included)...[facility]01-27-[facility] History of Present illness Narrative* Cady Espinosa [...] (VOLTAREN) 75 mg, 2 times daily HYDROcodone-acetaminophen ([place]) 5-325 mg tablet 1 tablet, Daily PRN [...] Diagnosis Date Noted Bilateral carotid artery disease ([facility]) 07/17/2024 Chest pressure 07/17/2024 BMI 26.0-26.9,adult [...] of Cady Espinosa MD. [facility] Work Phone: 1(923) 265-510501-27-2025 Instructions* Patient Instructions* Lillie Garcia LPN - [...] Provided instructions on exercise. [facility] Work Phone: 1(322) 429-139501-22-2025 Hospital Discharge instructions Patient Education 07/12/2024 10:54:35 [...] cells. Follow these instructions at home: Take vadf-ouo-zoisvdp and prescription medicines only as told by [...] is important. Where to find more information [employer] [employer] (ACS): cancer.org National Cancer Brohman (NCI): cancer.gov Contact a health care provider [...] provider. Document Revised: 05/18/2022 Document Reviewed: 05/18/2022 [employer] Patient Education 2023 Digital Performance. Follow Up Care 05/09/2024 13:40:51 With:DEVONTE NOBLE, Lionel Burgos, URL Address: [facility] [address], [place] [address]- When: Unknown [facility] 01-22-2025 NotePatient Education Oncology Bladder Cancer [...] Follow these instructions at home: ??? Take kxcd-fvg-zndynzn and prescription medicines only as told by [...] important. Where to find more information ??? [place] [employer] (ACS): cancer.org ??? National Cancer Brohman (NCI): cancer.gov Contact a health care provider [...] This information is n (more content not included)...[facility] 05-09-2024 Evaluation + Plan noteExtracted from:Title:Urology [...] 10:30:00 AM Scheduled Provider:Lionel WHITNEY MD Location:[facility] Appointment Type:URO Office Visit Appointment Date:10/09/2024 10:15:00 AM Scheduled Provider:Lionel WHITNEY MD Location:[facility] Appointment Type:URO Office Visit Diagnostic Tests Pending * UroVysion Fish and Urine Cyto ([facility]) 05/09/24 [facility] 11-19-2024 Hospital Discharge instructions Patient Education [...] 100 degrees. Follow Up Care 04/13/2024 11:43:40 With:Linoel WHITNEY Address: [address] [place] [address] [place] [address]- Business (1) When: Unknown Comments:Office will call to schedule follow up [facility] 11-19-2024 NoteProgress Note-Physician Patient: MARY DIAZ [...] All Problems HTN (hypertension) / SNOMED CT [id number] / Confirmed Acute gouty arthritis / SNOMED CT [id number] / Confirmed lots of inflammation per pt sometimes has to get steroids History of prostate cancer / SNOMED CT 1781313387 / Confirmed History of kidney stones / SNOMED CT 6332119854 / Confirmed Impotence / SNOMED CT 1464239575 / Confirmed Bladder cancer / SNOMED CT 2047975609 / Confirmed Spondylolisthesis of cervical region / SNOMED CT 823226737 / Confirmed Chronic obstructive pulmonary disease / SNOMED CT 09873725 / Confirmed GERD (gastroesophageal reflux disease) / SNOMED CT 842746891 / Confirmed BMI 23.0-23.9, adult / SNOMED CT 3131771677 / Confirmed Personal history of colonic polyps / SNOMED CT 2339143976 / Confirmed Chronic GERD / SNOMED CT 355961886 / Confirmed Change in bowel habits / SNOMED CT 289295695 / Confirmed Iron deficiency anemia / SNOMED CT 719812449 / Confirmed Personal history of bladder cancer / SNOMED CT 0996534235 / Confirmed Shoulder impingement syndrome / SNOMED CT 068202520 / Confirmed Ecchymosis / SNOMED CT 461086065 / Confirmed left leg from españa to ankle- box with snowblower in it slipped off a cart and banged his leg. Foot pink and dry with immediate capillary refill, 4t pedal and poterior tibial pulses. Umbilical hernia / SNOMED CT 6504615622 / Confirmed Histories Past Medical History: Active HTN (hypertension) ([id number]) Acute gouty arthritis ([id number]) Comments: 08/22/2014 EST 16:07 Jannette Del Rio RN lots of inflammation per pt sometimes has to get steroids Resolved Cancer of prostate ([id number]): Resolved. Comments: 08/22/2014 EST 16:09 Jannette Del Rio RN just had a surgery done radical prostectomy at [facility] Acid reflux ([id number]): Resolved. Family History: Hypertension Father Diabetes mellitus type 2 Father Depression Sister Procedure history: Cystoscopy ([id number]) on 04/27/2023 at 73 Years. TURBT - Transurethral resection of bladder tumor ([id number]) on 01/14/2023 at 72 Years. TURBT - Transurethral resection of bladder tumor ([id number]) on 02/17/2022 at 72 Years. TURBT - Transurethral resection of bladder tumor ([id number]) on 10/29/2021 at 71 Years. Cystourethroscopy with dilation of urethral stricture ([id number]) on 10/14/2021 at 71 Years. Repair of umbilical hernia ([id number]) on 06/22/2017 at 67 Years. Comments: 06/22/2017 14:35 Nedra Tavares RN Umbilical hernia repair with mesh ( assisted with robot) Arthroscopy of shoulder ([id number]) on 05/20/2017 at 67 Years. Comments: 05/20/2017 19:03 CASS Garcia RN, Zora Rogers LEFT SHOULDER ARTHROSCOPIC, CHONDROPLASTY,DEBRIDEMENT OF PARTIAL ROTATOR CUFF TEAR, REMOVAL RETAINED SUTURE Radical prostatectomy ([id number]) in the month of 08/2014 at 64 Years. bilateral fifth partial metatarsal osteotomies and Silver Tailor's bunionectomies on 08/29/2014 at 64 Years. Colonoscopy ([id number]) in the month of 05/2014 at 64 Years. Complete repair of rotator cuff ([id number]) in 2010 at 61 Years. Comments: 08/22/2014 16:14 Jannette Del Rio RN right Shoulder reconstruction (003752830) in 1998 at 49 Years. Comments: 08/22/2014 16:15 Jannette Del Rio RN left possibly a screw in there per pt Appendectomy ([id number]) in 1964 at 15 Years. Arthroplasty of the ankle (8558728915). Comments: 12/30/2018 14:30 Jayne Elkins 1990 Arthroscopy of knee ([id number]). Cervical vertebral fusion (22045517). Social History Social & Psychosocial Habits Alcohol 10/04/2023 Risk Assessment: Low Risk 10/04/2023 Use: Current Substance Abuse 10/04/2023 Risk Assessment: Denies Substance Abuse Tobacco 10/04/2023 Risk Asse (more content not included)...[facility] Comment on above:Result Comment: Electronically Signed By: DEVONTE NOBLE, Lionel Ernandez\Date and Time Signed: 05/09/24 09:50 [id number] NotePatient Education Custom Cystoscopy ??? Voiding after [...] if you have a fever over 100 degrees.[facility] 05-08-2024 NoteNormal sinus rhythm 67 bpm left axis deviation incomplete right bundle branch block poor R wave progression. No comparison EKG.[id number] History of Present illness Narrative* Cady Espinosa MD - 05/08/2024 11:15 AM EST Referred by Dr. Alex Monterroso for New Patient Visit (Tdoprtxr-Fxuuyh-Fdgbonyzhpdc) History Of Present Illness: Mary Diaz is [...] (VOLTAREN) 75 mg, 2 times daily HYDROcodone-acetaminophen ([place]) 5-325 mg tablet 1 tablet, Daily PRN [...] further questions arise, Sincerely, Cady Espinosa MD [facility] Provider Attestation - Scribe documentation All medical record entries made by the Scribe were at my direction and personally dictated by me. Ihalcides reviewed the chart and agree that the record accurately reflects my personal performance of the history, physical exam, discussion and plan. documented in this [facility] Work Phone: 1(605) 254-636211-18-2024 Instructions* Patient Instructions* Ella Cruz RN - [...] Provided instructions on exercise. documented in [facility] Work Phone: 1(799) 326-473405-07-2024 Hospital Discharge instructions Patient Education 10/26/2023 11:58:55 [...] Up Care 09/29/2023 09:06:13 With:Lionel DEVONTE Address: [address] [place], [place] [id number] Business (1) When: Unknown Comments:Office will call to schedule follow up [facility]04-15-2024 Hospital Discharge instructions Patient Education 10/04/2023 10:57:15 [...] if anything looks unusual. Men with a hcnabj-wytx-pvddzl risk for skin cancer may want to see a methods specialist engineer (steel erector apprentice) for an annual body check. What are the benefits of screening? Cancer screening is done to look for cancer in the very early stages, before it spreads and becomesharder to treat and before you would start to notice symptoms. Finding cancer early improves the chances of successful treatment. It may save your life. Where to find more information [employer] [employer]: www.cancer.org Centers for Disease Control and Prevention: www.cdc.gov National Cancer Brohman: www.cancer.gov Contact a health care provider if: [...] provider. Document Revised: 11/03/2021 Document Reviewed: 05/03/2020 [employer] Patient Education 2022 [employer] Follow Up Care 10/01/2022 10:55:16 With:DEVONTE NOBLE, Lionel Burgos, URL Address: [facility] [address] [place] [phone] When: Unknown Comments:2 yr w/ PSA [facility] [place] 11-07-2023 Hospital Discharge instructions Patient Education [...] Address: [facility] [address] [place] [address]- Business (1) When: Unknown Comments:Office will call to schedule follow up [facility]07-18-2023 Hospital Discharge instructions Patient Education 01/05/2023 [...] Address: [facility] [address] [place] [address]- Business (1) When: Unknown Comments:Office will call to schedule follow up [facility]06-15-2023 Evaluation note* Encounter Date Diagnosis Assessment [...] - M46.1) Nov,Neurogenic claudication (ICD-10 - R29.818) [facility] Other 05-04-2023 Evaluation note* Encounter Date Diagnosis [...] lumbar spine October,Neurogenic claudication (ICD-10 - R29.818) [facility] Other 04-03-2023 Hospital Discharge instructions Patient Education [...] if anything looks unusual. Men with a nrnsvy-znec-itcxrz risk for skin cancer may want to see a methods specialist engineer (steel erector apprentice) for an annual body check. Where to find more information National Cancer Brohman: https://www.cancer.gov/about-cancer/screening Centers for Disease Control and Prevention: https://www.cdc.gov/cancer/dcpc/prevention/screening.htm [employer] Cancer Society: https://www.cancer.org/latest-news/3-napzwq-cmjccwfuc-fsucw-yxz-hmp.html Contact a health care provider if: You [...] 03/04/2017 Document Revised: 02/24/2019 Document Reviewed: 03/04/2017 [employer] Patient Education 2020 Digital Performance. Follow Up Care 09/19/2021 11:05:08 With:DEVONTE NOBLE, Lionel Burgos, URL Address: [facility] [address] , [place] [address]- When: Unknown [facility] 01-17-2023 Hospital Discharge instructions Patient Education [...] Address: [facility] [address] [place] [address]- [facility] (1) When: Unknown Comments:Office will call to schedule follow up [facility]09-06-2022 Hospital Discharge instructions Patient Education 02/24/2022 [...] if anything looks unusual. Men with a jjbxzr-wiff-zncrwl risk for skin cancer may want to see a methods specialist engineer (steel erector apprentice) for an annual body check. Where to find more information National Cancer Brohman: https://www.cancer.gov/about-cancer/screening Centers for Disease Control and Prevention: https://www.cdc.gov/cancer/dcpc/prevention/screening.htm [employer] Cancer Society: https://www.cancer.org/latest-news/5-urrsru-lllgjvxqu-gxgnn-jno-pui.html Contact a health care provider if: You [...] 03/04/2017 Document Revised: 02/24/2019 Document Reviewed: 03/04/2017 [employer] Patient Education 2020 Digital Performance. Follow Up Care 02/05/2022 13:48:40 With:DEVONTE NOBLE, Lionel Burgos, URL Address: [facility] [address] , [place] [phone] When: Unknown [facility] 05-24-2022 Hospital Discharge instructions Patient Education [...] WHITNEY Address: [facility] [address] [place] [address]- Business (1) When: Unknown Comments:Keep scheduled appointment [facility]05-17-2022 Hospital Discharge instructions Patient Education 11/04/2021 [...] who: Are older than age 65. Are -Somali. Are obese. Have a family history of [...] cells. Follow these instructions at home: Take fgme-ebo-kzxzmmw and prescription medicines only as told by [...] 06/07/2006 Document Revised: 05/20/2018 Document Reviewed: 02/15/2017 [employer] Patient Education 2020 Digital Performance. Follow Up Care 10/14/2021 11:26:04 With:DEVONTE NOBLE, Lionel Burgos, URL Address: [facility] [address] , [place] [address]- When: Unknown [facility] Evaluation + Plan note Future Appointments Appointment Date:09/21/2022 09:45:00 AM Scheduled Provider:Lionel WHITNEY MD Location:[facility] [place] Appointment Type:URO Office Visit [facility] Evaluation + Plan note Future Appointments Appointment Date:03/09/2022 09:00:00 AM Scheduled Provider: Location:[facility] [place] Appointment Type:URO Nurse Visit Appointment Date:04/15/2022 09:00:00 AM Scheduled Provider: Location:[facility] [place] Appointment Type:URO Nurse Visit Appointment Date:09/21/2022 09:45:00 AM Scheduled Provider:Lionel WHITNEY MD Location:[facility] [place] Appointment Type:URO Office Visit [facility] Evaluation + Plan note Future Appointments Appointment Date:03/09/2022 09:00:00 AM Scheduled Provider: Location:[facility] [place] Appointment Type:URO Nurse Visit Appointment Date:04/15/2022 09:00:00 AM Scheduled Provider: Location:[facility] [place] Appointment Type:URO Nurse Visit Appointment Date:09/21/2022 09:45:00 AM Scheduled Provider:Lionel WHITNEY MD Location:[facility] [place] Appointment Type:URO Office Visit Diagnostic Tests Pending * Urine Culture [facility]ments Appointment Date:04/15/2022 09:00:00 AM Scheduled Provider: Location:[facility] [place] Appointment Type:URO Nurse Visit Appointment Date:09/21/2022 09:45:00 AM Scheduled Provider:Lionel WHITNEY MD Location:[facility] [place] Appointment Type:URO Office Visit [facility] evaluation + Plan note Future Appointments Appointment Date:07/20/2022 10:00:00 AM Scheduled Provider: Location:[facility] [place] Appointment Type:URO Nurse Visit Appointment Date:08/17/2022 10:00:00 AM Scheduled Provider: Location:[facility] Appointment Type:URO Nurse Visit Appointment Date:09/21/2022 09:45:00 AM Scheduled Provider:Lionel WHITNEY MD Location:[facility] Appointment Type:URO Office Visit Diagnostic Tests Pending * UroVysion FISH ([facility]) [facility]07[facility] App[facility]ments Appointment Date:08/17/2022 10:00:00 AM Scheduled Provider: Location:[facility] Appointment Type:URO Nurse Visit Appointment Date:09/21/2022 09:45:00 AM Scheduled Provider:Lionel WHITNEY MD Location:[facility] Appointment Type:URO Office Visit [facility] Evaluation + Plan note Future Appointments Appointment Date:09/22/2022 02:00:00 PM Scheduled Provider: Location:[facility] Appointment Type:Urology CALL PAT FT Appointment Date:09/29/2022 11:15:00 AM Scheduled Provider: Location:[facility] Appointment Type:Urology FT [facility] evaluation + Plan note Future Appointments Appointment Date:09/22/2022 02:00:00 PM Scheduled Provider: Location:[facility] Appointment Type:Urology CALL PAT FT Appointment Date:09/29/2022 11:15:00 AM Scheduled Provider: Location:[facility] Appointment Type:Urology FT Diagnostic Tests Pending * Urine Cytology ([facility]) 09/21/22 [facility] evaluation + Plan note Future Appointments Appointment Date:10/04/2023 10:15:00 AM Scheduled Provider:Lionel WHITNEY MD Location:[facility] Appointment Type:URO Office Visit Diagnostic Tests Pending * UroVysion Fish and Urine Cyto ([facility]) [facility]05[facility] App[facility]ments Appointment Date:10/04/2023 10:15:00 AM Scheduled Provider:Lionel WHITNEY MD Location:[facility] Appointment Type:URO Office Visit General Surgery [place] Evaluation + Plan note Future Appointments Appointment Date:10/04/2023 10:15:00 AM Scheduled Provider:Lionel WHITNEY MD Location:[facility] Appointment Type:URO Office Visit Diagnostic Tests Pending * UroVysion Fish and Urine Cyto ([facility]) 04/27/23 [facility] App[facility]ments Appointment Date:10/20/2023 12:00:00 PM Scheduled Provider: Location:[facility] Appointment Type:Urology CALL PAT FT Appointment Date:10/26/2023 10:00:00 AM Scheduled Provider: Location:[facility] Appointment Type:Urology FT Appointment Date:10/09/2024 10:15:00 AM Scheduled Provider:Lionel WHITNEY MD Location:[facility] Appointment Type:URO Office Visit Diagnostic Tests Pending * PSA Total 10/04/23 [facility] evaluation + Plan note Future Appointments Appointment Date:10/09/2024 10:15:00 AM Scheduled Provider:Lionel WHITNEY MD Location:[facility] Appointment Type:URO Office Visit Diagnostic Tests Pending * UroVysion Fish and Urine Cyto ([facility]) 10/26/23 [facility] App[facility]ments Appointment Date:07/12/2024 10:30:00 AM Scheduled Provider:Lionel WHITNEY MD [facility] Type[facility]O Office Visit Appointment Date:10/09/2024 10:15:00 AM Scheduled Provider:[facility]ITNEY [facility] Office Visit [facility] evaluation + Plan note Future Appointments Appointment Date:07/12/2024 10:30:00 AM Scheduled Provider:Lionel WHITNEY MD Location:[facility] [place] Appointment Type:URO Office Visit Appointment Date:10/09/2024 10:15:00 AM Scheduled Provider:Lionel WHITNEY MD Location:[facility] Appointment Type:URO Office Visit Diagnostic Tests Pending * Urine Cytology ([facility]) 05/22/24 [facility] evaluation + Plan note Future Appointments Appointment Date:10/09/2024 10:15:00 AM Scheduled Provider:Lionel WHITNEY MD [facility] Type:[facility]O Office Visit [facility] [place] Evaluation + Plan note Future Appointments Appointment Date:02/26/2025 08:30:00 AM Scheduled Provider:Lionel WHITNEY MD Location:[facility] Appointment Type:URO Procedure 15 min Diagnostic Tests Pending * UroVysion Fish and Urine Cyto ([facility]) 10/24/24 [facility] Evaluation + Plan note Future Appointments Appointment Date:12/05/2024 10:00:00 AM Scheduled Provider:LAUREN WOODY PA-C Location:[facility] Appointment Type:URO Office Visit Appointment Date:12/12/2024 10:00:00 AM Scheduled Provider:LAUREN WOODY PA-C Location:[facility] Appointment Type:URO Office Visit Appointment Date:02/26/2025 08:30:00 AM Scheduled Provider:Lionel WHITNEY MD [facility] Type:URO Procedure 15 min [facility] evaluation + Plan note Future Appointments Appointment Date:12/12/2024 10:00:00 AM Scheduled Provider:LAUREN WOODY PA-C Location:[facility] Appointment Type:URO Office Visit Appointment Date:02/26/2025 08:30:00 AM Scheduled Provider:[facility] Procedure 15 min [facility] evaluation + Plan note Future Appointments Appointment Date:02/26/2025 08:30:00 AM Scheduled Provider:Lionel WHITNEY MD [facility] Type:URO Procedure 15 min [facility] evaluation noteNo assessment information available [facility] Work Phone: Evaluation note* Diagnosis Onset Date Resolution Status Spinal stenosis of cervical region with radiculopathy acuteSpinal stenosis of lumbar region with radiculopathyacute [facility] Work Phone: Evaluation note* Diagnosis Onset Date Resolution Status Spinal stenosis of cervical region with radiculopathy acuteSpinal stenosis of lumbar region with radiculopathyacuteColonization status acuteCOPD (chronic obstructive pulmonary disease)acute [facility] Work Phone: evaluation note* Diagnosis Unequal [...] Medication course changed documented in this encounter [facility] Work Phone: Evaluation note* Diagnosis Left carotid bruit Unequal blood pressure in upper extremities documented in this encounter [facility] Work Phone: Evaluation note* Diagnosis Former smoker Personal history of tobacco use, presenting hazards to health Shortness of breath documented in this encounter [facility] Work Phone: Evaluation note* Diagnosis Uncontrolled hypertension [...] breath BMI 26.0-26.9,adult documented in this encounter [facility] Work Phone: Evaluation note* Diagnosis Malignant neoplasm of urinary bladder, unspecified site (HCC)- Primary documented in this encounter [facility] note* Diagnosis Malignant neoplasm of urinary bladder, unspecified site (HCC)- Primary documented in this encounter [facility] note* Diagnosis Malignant neoplasm of urinary bladder, unspecified site (HCC)- Primary documented in this encounter [facility] note* Diagnosis Malignant neoplasm of urinary bladder, unspecified site (HCC)- Primary documented in this encounter [facility] note* Diagnosis Malignant neoplasm of urinary bladder, unspecified site (HCC)- Primary documented in this encounter [facility] note* Diagnosis Malignant neoplasm of urinary bladder, unspecified site (HCC)- Primary documented in this encounter [facility] note* Diagnosis High risk medication use- Primary Encounter for long-term (current) use of other medications documented in this encounter [facility] note* Diagnosis Malignant neoplasm of urinary bladder, unspecified site (HCC)- Primary documented in this encounter [facility] note* Diagnosis High risk medication use- Primary Encounter for long-term (current) use of other medications documented in this encounter [facility] note* Diagnosis Malignant neoplasm of urinary bladder, unspecified site (HCC)- Primary documented in this encounter [facility] note* Diagnosis UTI symptoms- Primary Other symptoms involving urinary system documented in this encounter [facility] note* Diagnosis Malignant neoplasm of urinary bladder, unspecified site (HCC)- Primary documented in this encounter [facility] note* Diagnosis Malignant neoplasm of urinary bladder, unspecified site (HCC) documented in this encounter [facility] note* Diagnosis Malignant neoplasm of urinary bladder, unspecified site (HCC)- Primary documented in this encounter [facility] note* Diagnosis Malignant neoplasm of urinary bladder, unspecified site (HCC)- Primary documented in this encounter [facility] note* Diagnosis Malignant neoplasm of urinary bladder, unspecified site (HCC)- Primary documented in this encounter [facility] note* Diagnosis Chest pressure Other chest pain Shortness of breath documented in this encounter [facility] Work Phone: Evaluation note* Diagnosis Acute hip pain, left- Primary Trochanteric bursitis of left hip documented in this encounter [facility] note* Diagnosis Acute hip pain, left- Primary documented in this encounter [facility] note* Diagnosis Trochanteric bursitis of left hip- Primary Acute hip pain, left documented in this encounter [facility] HealthcareEvaluation note* Diagnosis Malignant neoplasm of urinary bladder, unspecified site (HCC)- [facility] Trochanteric bursitis of left hip- Primary Acute hip pain, left documented in this encounter [facility] HealthcareEvaluation note* Diagnosis Neoplasm of unspecified behavior of bone, soft tissue, and skin- Primary Actinic keratosis documented in this encounter [facility] HealthcareHistory general Narrative - Reported* Type Description Date Medical History HTN Medical HistoryCANCERMedical HistorypneumoniaMedical Historyprostate cancer Surgical History2 LEFT ANKLE RECONSTRUCTIONSurgical HistoryProcedure:Lt shoulder ORIF-screw;Disease:Lt shoulder [id number] HistoryLEFT ROTATOR CUFF Surgical HistoryProcedure:Appendectomy;Disease:1964Surgical History Procedure:Arthroscopy Knee;Disease:2000Surgical HistoryRIGHT SHOULDERSurgical HistoryLEFT SHOULDERSurgical HistoryProcedure:Arthroscopy Ankle;Disease:Surgical HistoryHERNIASurgical HistoryProcedure:right shoulder arthroscopy, debridement , acromioplasty,mini open supraspinatus tendontear;Disease:Surgical History Bilateral tailors bunion [id number] HistoryPROSTECTOMYSurgical History APPENDECTOMYSurgical HistoryRight toe 4 shortened-partial excision of [id number] Surgical HistoryprostatectomySurgical HistoryRIGHT KNEE SCOPESurgical HistoryL shoulder NAE -sbs -[id number] HistoryFLU X2-3 DAYS Hospitalization Historysee surg. hx. ColosseoEAS Other Hospital course Narrative No data available for this section [facility] Hospital Discharge instructions No data available for this section [facility] progress note No data available for this section [facility] Reason for visit Narrative* Imaging (Routine) - AuthorizedSpecialtyDiagnoses / ProceduresReferred By ContactReferred To ContactCardiology Diagnoses Left carotid bruit Unequal blood pressure in upper extremities Procedures Vascular US Carotid Artery Duplex Bilateral Cady Espinosa MD [address] [place] [address] Phone: tel: fax: Referral IDStatusReasonStart DateExpiration DateVisits RequestedVisits [id number] Perform Procedure [facility] Work Phone: reason for visit Narrative* CV Imaging (Routine) - AuthorizedSpecialtyDiagnoses / ProceduresReferred By ContactReferred To ContactCardiology Diagnoses Former smoker Shortness of breath Procedures Transthoracic Echo Complete VT ECHO TTHRC R-T 2D W/WOM-MODE COMPL SPEC&COLR D Cady Espinosa MD [address] [address] Phone: tel: fax: Referral IDStatusReasonStart DateExpiration DateVisits RequestedVisits [id number] Perform Procedure [facility] Work Phone: reason for visit Narrative* [place] Prior Authorization (Routine) - AuthorizedSpecialtyDiagnoses / ProceduresReferred By Contact Referred To Contact Diagnoses Malignant neoplasm of urinary bladder, unspecified site (HCC) Procedures BCG LIVE INTRAVESICAL INSTILLATION, 1 MG Norberto Andrade MD [address] [place] [address] [place] [address] Phone: tel: fax: Hematology/Oncology [address] [place] [address] [place] [address] Phone: tel: fax: Referral IDStatusReasonStart DateExpiration DateVisits RequestedVisits [id number]/5/202512/31/2025199 [facility] for visit Narrative* Cardiac Stress Testing (Routine) - AuthorizedSpecialtyDiagnoses / ProceduresReferred By ContactReferred To ContactCardiology Diagnoses Chest pressure Shortness of breath Procedures Nuclear Stress Test CHG MYOCARDIAL SPECT MULTIPLE STUDIES Cady Espinosa MD [address] [address] Phone: tel: fax: Referral IDStatusReasonStart DateExpiration DateVisits RequestedVisits [id number] Perform Procedure [facility] Work Phone: Reason for visit Narrative* Cardiac Stress Testing (Routine) - AuthorizedSpecialtyDiagnoses / ProceduresReferred By Contact Referred To ContactCardiology Diagnoses Chest pressure Shortness of breath Procedures Nuclear Stress Test CHG MYOCARDIAL SPECT MULTIPLE STUDIES Cady Espinosa MD [address] [address] Phone: tel: fax: Referral IDStatusReasonStart DateExpiration DateVisits RequestedVisits [id number] Perform Procedure [facility] Work Phone: Chief Complaint and Reason for [...] Diagnosis 1 Cervical spondylosis (M47.812) Referral Organization [facility] Referring Provider First Name Zoran Referring Provider Last Name Scott Referring Provider Specialty Neurologica l Surgery Referred Organization [facility] Referred Address [address] [place], [place],[address] Referred Provider Specialty Physical The rapist Referral Priority Routine Reason evaluate and tr eat for neck and back pain Diagnosis 1 Cervical spondylosis (M47.812) Diagnosis 2 Low back pain, unspe cified (M54.50) Referral Organization [facility] Referring Provider First Name Zoran Referring Provider Last Name Scott Referring Provider Specialty Neurologica l Surgery Referred Organization [facility] Referred Provider Raoul Soriano Referred Address [address] [place], [place],[address] Referred Provider Specialty Pain Medicin e Referral Priority Routine General Notes Fore, Meron M 023 08:08:21 AM >Received today and waiting for office notes to be locked before sending referral Summary Purpose Additional Source Comments Care Teams (unrecognized sec tion and content) Team Status: Inactive Member Role Status Dates Deandre Monterroso MD Primary Care Provider Active Apolonia Cole ProviderActive Team Status: Active Member Role Status Shawn Monterroso MD Primary Care Provider Active Team Status: Inactive Member Role Status Shawn Monterroso MD Primary Care Provider Active Apolonia Hinojosa ProviderActive Team Status: Inactive Member Role Status Shawn Monterroso MD Primary Care Provider Active Start: August 12, 2023 End: August 12, 2023Esther Lowery PROPERTY CARETAKER-CAttending ProviderActiveStart: August 12, 2023 End: August 12, 2023 Team Status: Active Member Role Status Shawn Monterroso MD Primary Care Provider Active Start: August 12, 2023 Esther Lowery PROPERTY CARETAKER-CAttending ProviderActiveStart: August 12, 2023 Team Status: Inactive Member Role Status Shawn Monterroso MD Primary Care Provider Active Start: August 28, 2023 End: August 28, 2023Esther Lowery PROPERTY CARETAKER-CAttending ProviderActiveStart: August 28, 2023 End: August 28, [...] MemberRelationshipSpecialtyStart DateEnd Date Deandre Monterroso MD [address] [place] [address] PCP - GeneralFamily Qtxoxpna56/18/24Team MemberRelationshipSpecialtyStart Date End Date Deandre Monterroso MD [address] [place] [address] PCP - GeneralFamily Mfvnqthk83/18/24 Team Status: Inactive Member Role Status Dates Deandre Monterroso MD Primary Care Provider Active Start: July 06, 2024 End: July 06, 2024PatricApolonia Payne ProviderActiveStart: July 06, 2024 End: July 06, 2024Team MemberRelationshipSpecialtyStart DateEnd Date Deandre Monterroso MD [address] [place] [address] PCP - GeneralChanning Home Amlrplee98/18/24Team MemberRelationshipSpecialtyStart Date End Date Lionel Whitney MD [address] [place] [address] Urolog07/18/24Team MemberRelationshipSpecialtyStart DateEnd Date Lionel Whitney MD [address] [place] [address] Urolog07/18/24Team MemberRelationshipSpecialtyStart DateEnd Date Deandre Monterroso MD [address] [place] [address] PCP - GeneralFami Medicine07/26/24 Lionel Whitney MD [address] [place] [address] Urolog07/18/24Team MemberRelationshipSpecialtyStart DateEnd Date Deandre Monterroso MD [address] [place] [address] PCP - GeneralFami Medicine07/26/24 Lionel Whitney MD [address] [place] [address] Urolog07/18/24Team MemberRelationshipSpecialtyStart DateEnd Date Deandre Monterroso MD [address] [facility] [place] [address] PCP - GeneralFamily Medicine07/26/24 Lionel Whitney MD [address] [place] [address] Urolog07/18/24Team MemberRelationshipSpecialtyStart DateEnd Date Deandre Monterroso MD [address] [facility] [place] [address] PCP - Generalmily Medicine07/26/24 Lionel Whitney MD [address] [place] [address] Urolog07/18/24Team MemberRelationshipSpecialtyStart DateEnd Date Deandre Monterroso MD [address] [facility] [place] [address] PCP - Generalmily Medicine07/26/24 Lionel Whitney MD [address] [place] [address] Urolog07/18/24Team MemberRelationshipSpecialtyStart DateEnd Date Deandre Monterroso MD [address] [place] [address] PCP - GeneralFamily Medicine07/26/24 Lionel Whitney MD [address] [place] [address] Urolog07/18/24 Ingrid Ugalde, RN [address] [facility] [place] [address] Specialty Care CoordinatorHematology/Oncology08/07/24 Norberto Andrade MD [address] [facility] [place] [place] [address] PhysicianHematology/Oncology08/07/24Team MemberRelationshipSpecialtyStart DateEnd Date Deandre Monterroso MD [address] [place] [address] PCP - [facility] Medicine07/26/24 Lionel Whitney MD [address] [place], [facility] Urolog07/18/24 Ingrid Ugalde RN [address] [facility] [place] [address] Specialty Care CoordinatorHematology/Oncology08/07/24 Norberto Andrade MD [address] [facility] [place] [address] PhysicianHematology/Oncology08/07/24Team MemberRelationshipSpecialtyStart DateEnd Date Deandre Monterroso MD [address] [place] [address] PCP - [facility] Medicine07/26/24 Lionel Whitney MD [address] [place] [address] Urolog07/18/24 Ingrid Ugalde RN [address] [place] [address] Specialty Care CoordinatorHematology/Oncology08/07/24 Norberto Andrade MD [address] [facility] [place] [place] [address] PhysicianHematology/Oncology08/07/24Te MemberRelationshipSpecialtyStart DateEnd [facility] Deandre Monterroso MD [address] [facility] [address] PCP - [facility] Medicine07/26/24 Lionel Whitney MD [address] [place], [facility] Urolog07/18/24 Ingrid Ugalde RN [address] [facility] [place] [address] Specialty Care CoordinatorHematology/Oncology08/07/24 Norberto Andrade MD [address] [facility] [place] [place] [address] PhysicianHematology/Oncology08/07/24Te MemberRelationshipSpecialtyStart DateEnd [facility] Deandre Monterroso MD [address] [facility] [place] [address] PCP - [facility]Ch[facility] Medicine07/26/24 Lionel Whitney MD [address] [place] [address] Urolog07/18/24 Ingrid Ugalde RN [address] [place] [address] Specialty Care CoordinatorHematology/Oncology08/07/24 Norberto Andrade MD [address] [facility] [place] [place] [address] PhysicianHematology/Oncology08/07/24Team MemberRelationshipSpecialtySthalma End [facility] Deandre Monterroso MD [facility] [place] [id number] PCP - GeneralFamily Medicine07/26/24 Lionel Whitney MD [address] [place] [address] Urolog07/18/24 Ingrid Ugalde RN [address] [facility] [address] [place], [facility] Specialty Care CoordinatorHematology/Oncology08/07/24 Norberto Andrade MD [address] [facility] [address] [place], [facility] PhysicianHematology/Oncology08/07/24Team MemberRelationshipSpecialtySthalma DateEnd Deandre Monterroso MD [facility] [place] [id number] PCP - GeneralFamily Medicine07/26/24 Lionel Whitney MD [address] [place] [address] Urolog07/18/24 Ingrid Ugalde RN [address] [facility] [place] [address] Specialty Care CoordinatorHematology/Oncology08/07/24 Norberto Andrade MD [address] [facility] [place] [place] [address] PhysicianHematology/Oncology08/07/24Team MemberRelationshipSpecialtyStart End Deandre Monterroso MD [address] [place] [address] PCP - GeneralFamily Medicine07/26/24 Lionel Whitney MD [address] [address] Urolog07/18/24 Ingrid Ugalde RN [address] [facility] [place] [address] Specialty Care CoordinatorHematology/Oncology08/07/24 Norberto Andrade MD [address] [facility] [place] [place] [address] PhysicianHematology/Oncology08/07/24Te MemberRelationshipSpecialtyStart DateEnd Deandre Monterroso MD [address] [place] [address] PCP - GeneralFamily Medicine07/26/24 Lionel Whitney MD [address] [place] [address] Urolog07/18/24 Ingrid Ugalde, NATHALIE [address] [facility] [place] [address] Specialty Care CoordinatorHematology/Oncology08/07/24 Norberto Andrade MD [address] [facility] [place] [place] [address] PhysicianHematology/Oncology08/07/24Te MemberRelationshipSpecialtyStart DateEnd [facility] Deandre Monterroso MD [address] [place] [address] PCP - [facility] Medicine07/26/24 Lionel Whitney MD [address] [place] [id number] Urolog07/18/24 Ingrid Ugalde RN [address] [facility] [place] [address] Specialty Care CoordinatorHematology/Oncology08/07/24 Norberto Andrade MD [address] [facility] [place] [place] [address] PhysicianHematology/Oncology08/07/24Te MemberRelationshipSpecialtyStart DateEnd [facility] Deandre Monterroso MD [address] [place] [address] PCP - [facility] Medicine07/26/24 Lionel Whitney MD [address] [place] [address] Urolog07/18/24 Ingrid Ugalde RN [address] [facility] [place] [address] Specialty Care CoordinatorHematology/Oncology08/07/24 Norberto Andrade MD [address] [facility] [place] [place] [address] PhysicianHematology/Oncology08/07/24Te MemberRelationshipSpecialtyStart DateEnd [facility] Deandre Monterroso MD [address] [facility] [address] PCP - GeneralFamily Ueviajgo03/18/24Te MemberRelationshipSpecialtyStart Date End Date Deandre Monterroso MD [address] [place] [facility] [address] PCP - GeneralFamily Ruevsfce13/18/24Team MemberRelationshipSpecialtyStart Date End Date Deandre Monterroso MD [address] [place] [address] PCP - Generalmily Medicine01/07/23Team MemberRelationshipSpecialtyStart DateEnd Date Deandre Monterroso MD [address] [place] [address] PCP - GeneralFamily Medicine01/07/23Team MemberRelationshipSpecialtyStart DateEnd Date Deandre Monterroso MD [address] [place] [address] PCP - GeneralFamily Medicine07/26/24 Lionel Whitney MD Urolog07/18/24 Ingrid Ugalde RN [address] [place] [address] [address] [place], [facility] Specialty Care CoordinatorHematology/Oncology08/07/24 Norberto Andrade MD [address] [place] [address] [place], [facility]70 PhysicianHematology/Oncology08/07/24Team MemberRelationshipSpecialtyStart DateEnd Date Deandre Monterroso MD PCP - Generalmily Medicine01/07/23Team MemberRelationshipSpecialtyStart DateEnd Date Deandre Monterroso MD PCP - GeneralFamily Medicine01/07/23Team MemberRelationshipSpecialtyStart DateEnd Date Deandre Monterroso MD PCP - Generalmily Medicine01/07/23Team MemberRelationshipSpecialtyStart DateEnd Date Deandre Monterroso MD PCP - Generalmily Medicine01/07/23Team MemberRelationshipSpecialtyStart DateEnd Date Deandre Monterroso MD [address] [place] [address] PCP - Generalmily Medicine07/26/24 Lionel [place] MD Urolog07/18/24 Ingrid Ugalde RN [address] [facility] [address] [place] [id number] Specialty Care CoordinatorHematology/Oncology08/07/24 Norberto Andrade MD [address] [facility] [place] [address] PhysicianHematology/Oncology08/07/24Team MemberRelationshipSpecialtyStart DateEnd Deandre Monterroso MD [address] [place] [address] PCP - GeneralFamily Medicine01/10/25Team MemberRelationshipSpecialtyStart DateEnd Date Deandre Monterroso MD [address] [place] [address] PCP - [facility]01/10/25Team MemberRelationshipSpecialtyStart DateEnd Date Deandre Monterroso MD [address] [place] [address] PCP - GeneralChildren[facility]01/10/25Team MemberRelationshipSpecialtyStart DateEnd Date Deandre Monterroso MD [address] [place] [facility] [place] [address] PCP - [facility]01/10/25 Goals (unrecognized section and content) Goals [...] (unrecogniz ed section and content) ReasonCommentsNew Patient RoskhGmclckpj-Feeqmc-JmtxvxcxufdpQzuaqebqzXjwrnwnlr / ProceduresReferred By ContactReferred To Contact Diagnoses Uncontrolled hypertension Shortness of breath Procedures ECG 12 Lead Cady Espinosa MD [address] [place] [address] Phone: tel: fax: Referral IDStatusReasonStart DateExpiration DateVisits RequestedVisits [id number]/18/202411/18/437557ZequvlAcvfgwmqHgmrsn-fc7f SpecialtyDiagnoses / ProceduresReferred By ContactReferred To ContactCardiology Diagnoses Uncontrolled hypertension Procedures Follow Up In Cardiology Cady Espinosa MD [address] [place] [address] Phone: tel: fax: Cady Espinosa MD [address] [place] [address] Phone: tel: fax: Referral IDStatusReasonStart DateExpiration DateVisits RequestedVisits [id number]/18/202411/18/196218QujcceSopvfrsbTnhiygh Cancer ConsultReasonCommentsFirst Time Treatment EducationReasonCommentsBenefits InvestigationGood ,I am your Financial Navigator, Esther. I wanted to reach out and introduce myself. I welcome the opportunity to meet with you as I can answer questions related to your health plan andany expected out of pocket costs while you are in treatment.You will also find a survey attached totWebinarHero message that can help me better serve your financial needs. You can complete this at your earliest convenience. Please feel free to stop in or call [phone] for any questions you may have.ReasonCommentsBladder CancerReason CommentsCare DvymmcxnolsdK3Z6 treatment follow up callReasonCommentsFollow Up ReasonCommentsRadiology CTSpecialtyDiagnoses / ProceduresReferred By Contact Referred To ContactCT IMAGING Diagnoses Malignant neoplasm of urinary bladder, unspecified site (HCC) Procedures CT CHEST W IVCON DIAGNOSTIC COMPUTED TOMOGRAPHY THORAX W/CONTRAST Norberto Andrade MD [address] [place] [address] [place] [address] Phone: tel: fax: [place] [address] Referral IDStatusReasonStart DateExpiration DateVisits RequestedVisits [id number] Auto-Generated Referral [id number] CancerTreatment visitReasonComments PainReasonCommentsPainReasonCommentsFollow-up (unrecognized sect ion and content) No Status Records FoundNo Status Records FoundNo Status Records FoundNo Status Records FoundNo Status Records FoundNo Status Records FoundNo Status Records FoundNo Status Records FoundNo Status Records FoundNo Status Records FoundNo Status Records FoundNo Status Records FoundNo Status Records Found INFORMATION SOURCE (unrecogn ized section and content) DATE CREATED AUTHOR 11/27/2022 [facility] DATE CREATED AUTHOR AUTHOR'S ORGANIZ ATION 05/23/2024 [facility] DATE CREATED AUTHOR AUTHOR'S ORGANIZ ATION 07/12/2024 [facility] DATE CREATED AUTHOR AUTHOR'S ORGANIZ ATION 09/26/2024 [facility] DATE CREATED AUTHOR AUTHOR'S ORGANIZ ATION 12/12/2024 [facility] DATE CREATED AUTHOR AUTHOR'S ORGANIZ ATION 12/14/2024 [facility] DATE CREATED AUTHOR AUTHOR'S ORGANIZ ATION 01/07/2025 [facility] DATE CREATED AUTHOR AUTHOR'S ORGANIZ ATION 02/11/2025 [facility] DATE CREATED AUTHOR AUTHOR'S ORGANIZ ATION 02/27/2025 [facility] DATE CREATED AUTHOR AUTHOR'S ORGANIZ ATION 03/01/2025 [facility] DATE CREATED AUTHOR AUTHOR'S ORGANIZ ATION 03/05/2025 [facility] DATE CREATED AUTHOR AUTHOR'S ORGANIZ ATION 03/14/2025 [facility] Source Comments (unrecognize d section and content) In the event this informatio n is protected by the Federal Confidentiality of Alcohol and Drug Abuse Patient Records regulations: The Federal rules restrict any use of the information to criminally investigate or prosecute any alcohol or drug abuse patient.[facility] Hospital[facility] the event this information is protected by the Federal Confidentiality of Alcohol and Drug Abuse Patient Records regulations: The Federal rules restrict any use of the information to criminally investigate or prosecute any alcohol or drug abuse patient.[facility] HospitalIn the event this information is protected by the Federal Confidentiality of Alcohol and Drug Abuse Patient Records regulations: The Federal rules restrict any use of the information to criminally investigate or prosecute any alcohol or drug abuse patient.[facility] HospitalIn the event this information is protected by the Federal Confidentiality of Alcohol and Drug Abuse Patient Records regulations: The Federal rules restrict any use of the information to criminally investigate or prosecute any alcohol or drug abuse patient.[facility] HospitalIn the event this information is protected by the Federal Confidentiality of Alcohol and Drug Abuse Patient Records regulations: The Federal rules restrict any use of the information to criminally investigate or prosecute any alcohol or drug abuse patient.[facility] HospitalIn the event this information is protected by the Federal Confidentiality of Alcohol and Drug Abuse Patient Records regulations: The Federal rules restrict any use of the information to criminally investigate or prosecute any alcohol or drug abuse patient.[facility] HospitalIn the event this information is protected by the Federal Confidentiality of Alcohol and Drug Abuse Patient Records regulations: The Federal rules restrict any use of the information to criminally investigate or prosecute any alcohol or drug abuse patient.[facility] HospitalIn the event this information is protected by the Federal Confidentiality of Alcohol and Drug Abuse Patient Records regulations: The Federal rules restrict any use of the information to criminally investigate or prosecute any alcohol or drug abuse patient.[facility] HospitalIn the event this information is protected by the Federal Confidentiality of Alcohol and Drug Abuse Patient Records regulations: The Federal rules restrict any use of the information to criminally investigate or prosecute any alcohol or drug abuse patient.[facility] HospitalIn the event this information is protected by the Federal Confidentiality of Alcohol and Drug Abuse Patient Records regulations: The Federal rules restrict any use of the information to criminally investigate or prosecute any alcohol or drug abuse patient.[facility] HospitalIn the event this information is protected by the Federal Confidentiality of Alcohol and Drug Abuse Patient Records regulations: The Federal rules restrict any use of the information to criminally investigate or prosecute any alcohol or drug abuse patient.[facility] HospitalIn the event this information is protected by the Federal Confidentiality of Alcohol and Drug Abuse Patient Records regulations: The Federal rules restrict any use of the information to criminally investigate or prosecute any alcohol or drug abuse patient.[facility] HospitalIn the event this information is protected by the Federal Confidentiality of Alcohol and Drug Abuse Patient Records regulations: The Federal rules restrict any use of the information to criminally investigate or prosecute any alcohol or drug abuse patient.[facility] HospitalIn the event this information is protected by the Federal Confidentiality of Alcohol and Drug Abuse Patient Records regulations: The Federal rules restrict any use of the information to criminally investigate or prosecute any alcohol or drug abuse patient.[facility] HospitalIn the event this information is protected by the Federal Confidentiality of Alcohol and Drug Abuse Patient Records regulations: The Federal rules restrict any use of the information to criminally investigate or prosecute any alcohol or drug abuse patient.[facility] HospitalIn the event this information is protected by the Federal Confidentiality of Alcohol and Drug Abuse Patient Records regulations: The Federal rules restrict any use of the information to criminally investigate or prosecute any alcohol or drug abuse patient.[facility] HospitalIn the event this information is protected by the Federal Confidentiality of Alcohol and Drug Abuse Patient Records regulations: The Federal rules restrict any use of the information to criminally investigate or prosecute any alcohol or drug abuse patient.[facility] HospitalIn the event this information is protected by the Federal Confidentiality of Alcohol and Drug Abuse Patient Records regulations: The Federal rules restrict any use of the information to criminally investigate or prosecute any alcohol or drug abuse patient.[facility] HospitalIn the event this information is protected by the Federal Confidentiality of Alcohol and Drug Abuse Patient Records regulations: The Federal rules restrict any use of the information to criminally investigate or prosecute any alcohol or drug abuse patient.[facility] HospitalIn the event this information is protected by the Federal Confidentiality of Alcohol and Drug Abuse Patient Records regulations: The Federal rules restrict any use of the information to criminally investigate or prosecute any alcohol or drug abuse patient.[facility] HospitalIn the event this information is protected by the Federal Confidentiality of Alcohol and Drug Abuse Patient Records regulations: The Federal rules restrict any use of the information to criminally investigate or prosecute any alcohol or drug abuse patient.[facility] HospitalIn the event this information is protected by the Federal Confidentiality of Alcohol and Drug Abuse Patient Records regulations: The Federal rules restrict any use of the information to criminally investigate or prosecute any alcohol or drug abuse patient.[facility] HospitalIn the event this information is protected by the Federal Confidentiality of Alcohol and Drug Abuse Patient Records regulations: The Federal rules restrict any use of the information to criminally investigate or prosecute any alcohol or drug abuse patient.[facility] HospitalIn the event this information is protected by the Federal Confidentiality of Alcohol and Drug Abuse Patient Records regulations: The Federal rules restrict any use of the information to criminally investigate or prosecute any alcohol or drug abuse patient.[facility] HospitalIn the event this information is protected by the Federal Confidentiality of Alcohol and Drug Abuse Patient Records regulations: The Federal rules restrict any use of the information to criminally investigate or prosecute any alcohol or drug abuse patient.[facility] FOR RECORDS PERTAINING TO PATIENTS [...] BE BASED ON THE PRIMARY CLINICAL RECORDS. [facility]. provides no warranty or guarantee of the accuracy or completeness of information in this document.
[2025-05-21 09:16] VITALS: BP 167/84; PULSE 80; TEMP 36.7; O2SAT 99
[2025-05-21 10:06] VITALS: BP 178/73; BP 194/93; PULSE 69; PULSE 96; O2SAT 94; O2SAT 99
[2025-05-21] MEDS: 0.9 % SODIUM CHLORIDE 10 ML SYRINGE - SALINE FLUSH INJ (10:07)
[2025-05-21] MEDS: IOHEXOL 240 MG/ML - 10 ML VIAL INJ (10:07)
[2025-05-21] MEDS: LIDOCAINE HCL 2% 400 MG/20 ML MDV INJ (10:07)
[2025-05-21] MEDS: METHYLPREDNISOLONE ACETATE 80 MG/ML VIAL INJ (10:08)
[2025-05-21] MEDS: BUPIVACAINE HCL 0.25% PF 25 MG/10 ML VIAL INJ (10:08)
--- NOTE | 2025-05-21 10:11 | P.ON_ITS ---
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 Informed consent was obtained and placed on the chart.? Patient was brought to the medical procedure unit and placed in the prone position where a timeout was completed verifying the correct patient, procedure site, position, and planned special equipment using sterile aseptic technique.? Under direct fluoroscopic visualization a 25-gauge Quincke tipped spinal needle was advanced to the designated neural foramen where contrast dye was injected to show adequate spread.? The needle was inserted at level right L4-5. There was no evidence of vascular or adverse uptake.? Epidural spread was appreciated.? The above- mentioned injectate was then placed in a 1.5 mL aliquot preceded by negative aspiration.? The needle was removed. The needle was inserted and the procedure repeated at level right L5-S1.? The surgery site was covered.? Patient was taken to the postprocedural recovery area and monitored for an appropriate length of time before found suitable for discharge in the accompaniment of a responsible adult. Anesthesia: Local Surgeon: Tamiko Landa Pathology: none sent Condition: stable Disposition: no change
== END 2025-05-21 10:16 | disposition home or self-care (01) ==
PROVIDERS: PCP Family Medicine; Visit Provider Anesthesiology
DX: M48.062 Spinal stenosis, lumbar region with neurogenic claudication (principal); M54.50 Low back pain, unspecified
CPT/HCPCS: 64483; 64484; J0665; J1010; Q9966

== ENCOUNTER 2025-05-31 09:30 | Outpatient (OUT) | payer MEDICARE, SELFPAY ==
--- OUTSIDE RECORDS SUMMARY | 2025-05-24 19:16 | XMS_ITS | Continuity of Care Document ---
Author Organization [facility] Address [address] [place] [address] Phone Care Team Providers Care Instructor Adjunct Surgical Technician Name Role Phone Deandre Staley MD Primary Care Provider [phone] Erin Shelton NP-C Attending Provider Care Teams Patient Care Team Team Status: Active Member Role/Relationship Status Dates Deandre Staley MD Primary Care Provider Active Visit Care Team Team Status: Inactive Member Role/Relationship Status Dates Deandre Staley MD Primary Care Provider Active Start: May 24, 2025 End: May 24joshua Shelton NP-CAttending ProviderActiveStart: May 24, 2025 End: May 24, 2025 Chief Complaint and Reason for Visit Chief Complaint Admit Date M54.16 May 24, 2025 8 :40am Allergies, Adverse Reactions, Alerts Allergen Type Severity Reaction Last Updated Verified Status codeine Allergy Unknown hives, does not relieve pain, aggitation March 28, 2024 1:58pm Yes Active cyclobenzaprine Allergy Unknown itching March 282023 1:58pm Yes Active hydrocodone Allergy Unknown anxiety March 28, 2024 1:58pm Yes Active oxycodone Allergy Unknown Itching, agitat ed, aggitation March 28, 2024 1:58pm Yes Active tizanidine Allergy Unknown hives March 28, 2024 1:58pm Yes Active Social History Smoking Status Status Start Date End Date Date of Observa tion Ex-smoker (finding) February 17, 2022 2:30pm Observation Status Observation Response Date of Response Legal Sex [facility] (finding) [facility] Family History Relationship Condition Age at Onset Recorded Date/T ashlyn father Diabetes mellitus Unknown HypertensionUnknownmotherDeceasedUnknownDiabetes mellitusUnknownsisterCalculus of kidneyUnknowngrandparentDeceasedUnknowngrandparentDeceasedUnknowngrandparent DeceasedUnknowngrandparentDeceasedUnknown Problems Active Problems Problem Diagnosis/Recorded Date Onset Date Status C omments Spinal stenosis of cervical region with radiculopathy August 12, 2023 11:38am Unknown Active Spondylosis of cervical region without myelopathy or radiculopathyOctober 2023 4:11pmUnknownActiveSpondylosis of lumbar region without myelopathy or radiculopathyOctober 2023 4:12pmUnknownActiveSpinal stenosis of lumbar region with radiculopathyFebruary 2023 11:38amUnknownActiveColonization statusApril 2023 2:45pmUnknownActiveCOPD (chronic obstructive pulmonary disease)April 11, 2020 12:34pmUnknownActive mild Inactive/Resolved Problems Problem Diagnosis/Recorded Date Onset Date Status C omments Spondylolisthesis, cervical region April 19, 2020 6:40am Unknown Resolved Proble m List clean-up per request of Phys. EHR Cmte Medications Medication Status Dose Units Route Directions Qty Days Refills S tart Date Stop Date End Date Reason(s) Instructions Adherence Omeprazole 40 mg Capsule,Del ayed Release(Dr/Ec) Discontinued 40 MG PO Daily as need ed for Heartburn August 07, 2019 12:00amApril 2023 2:26pmAmlodipine 10 mg Tablet Nmbtythairvu94JLVEKphioctPqwgrejp 2019 12:00amApril 2021 11:30amhtn Diclofenac Sodium 75 mg Tablet,Delayed Release (Dr/Ec)Yinzvllxicqj90LVIOAukfk daily as needed for PainFebruary 2019 12:00amOctober 2019 7:04am Allopurinol 300 mg EorrujYwxusjbanhin914BRZHMnqpuXgzdejpm 2019 12:00am April 11, 2020 12:50pmLisinopril 40 mg TjshioJritulgjwzdu92XPGKHswtnnq August 07, 2019 12:00amApril 2021 11:24amhtn Ukkhzxarite-Trhbupwta-Fqotklhm (Trelegy Ellipta) 100-62.5-25 mcg Blister With PzzsfeKaoryx2NSFZOZOUBNOXZNkdbnVtvhqciv 2019 12:00amCOPDUnknownDiazepam 5 mg JzcdsvJpomodciwmpc5XWYIJhvb times daily as needed for Muscle Eezys82565 April 18, 2020 11:00pmApril 2021 11:30amSpondylolisthesis of cervical region Spondylolisthesis, cervical regionOxycodone 5 mg PcdfuaGkknprxyyewu8QGKLLIKFF 4- 6 HOURS as needed for Pain Scale 1 - 738905Cvajmsd 2019April 2021 11:31amSpondylolisthesis of cervical region Spondylolisthesis, cervical regionCarvedilol 25 mg PpapjyOiegff09CYFNPwtht daily October 16, 2021 11:00pmhtnUnknownDiclofenac Sodium 75 mg Tablet,Delayed Release (Dr/Ec)Nohbtu80DVVALzmpe daily as needed for PainApril 2021 11:00pmUnknown Irbesartan 300 mg JwgsywSbzmkezmpufb439RPCOVaxcr at bedtimeApril 2021 11:00pmAugust 2021 1:19pmhtnMultivitamin QqdjxnZviufz4JZOUEPxbjfQpits 2021 11:00pmUnknownLosartan 100 mg ymaemdWzovjhgeghdc399QMUYPocge at bedtimeAugust 2021 11:00pmAugust 2021 9:48amClonidine Hcl 0.1 mg TabletDiscontinued0.1MGPOTwice dailyAugust 2021 11:00pmApril 2023 2:25pmCephalexin 500 mg mzsstpjDkqokxowjyja437TDQCQ61A9397Havchc 2021 11:00pmFebruary 2023 11:08amAmlodipine 10 mg ufxxzkRbbympaldnkq36RZKG August 12, 2023 12:00amOctober 2023 2:34pmHydrocodone-Acetaminophen 5- 325 mg hpbwqkWxwkti5POQBX0Eyujrijj 2023 12:00amUnknownPantoprazole 40 mg tablet,delayed release (DR/EC)ActiveMGPOFebruary 2023 12:00amUnknown Lidocaine 5 % adhesive patch,lrrflslyhBiakjjmhjwcj7XQJFJULOINKBWoyqd106Maxuareg 2023 12:00amApril 2023 2:26pmleave on most painful area for up to 12 hrsLiothyronine 5 mcg kgdxhvCphssy92BHIEQMbweaXyhqx 2023 11:00pmUnknown Methocarbamol 500 mg nohyiiWvcvsc123JMMQCjqep at bedtime as neededApril 2023 11:00pmUnknownMetoprolol Tartrate 50 mg tabletActiveMGPOOctober 2023 11:00pmUnknown Immunizations Immunization Event Date Not Given Reason Dose Number Drafting Instructor Lot Number Reason(s) Given Vaccine Information Statement (VIS) Detail Administration Location COVID-19 mRNA-1273 (Moderna) August 22, 2020 COVID-19 mRNA-1273 (Moderna)September 19OVID-19 mRNA-1273 (Moderna)May 06, 2021 Medical Equipment Device Date Implanted Device Details Polymeric ureteral stent October 29, 2021 ANIYAH: [id number] Issuing Agency: [facility] Device Id: [id number] Lot Number: [id number] internal spinal fixation system, non-sterile April 18, 2020UDI: ()[id number] Issuing Agency: [facility] Device Id: [id number] internal spinal fixation system, non-sterile April 18, 2020UDI: ()[id number] Issuing Agency: [facility] Device Id: [id number] internal spinal fixation system, non-sterile April 18, 2020UDI: ()[id number] Issuing Agency: [facility] Device Id: [id number]-[id number] internal spinal fixation system, non-sterile April 18, 2020UDI: ()[id number] Issuing Agency: [facility] Device Id: [id number] internal spinal fixation system, non-sterile April 18, 2020UDI: ()[id number] Issuing Agency: [facility] Device Id: [id number] internal spinal fixation system, non-sterile April 18, 2020UDI: ()[id number] Issuing Agency: [facility] Device Id: [id number]-[id number] internal spinal fixation system, non-sterile April 18, 2020UDI: ()[id number] Issuing Agency: [facility] Device Id: [id number] internal spinal fixation system, non-sterile April 18, 2020UDI: ()[id number] Issuing Agency: [facility] Device Id: [id number] internal spinal fixation system, non-sterile April 18, 2020UDI: ()[id number] Issuing Agency: [facility] Device Id: [id number] internal spinal fixation system, non-sterile April 18, 2020UDI: ()[id number] Issuing Agency: [facility] Device Id: [id number] Procedures Procedure Date Performed Status MR lumbar spine wo con May 24, 2025 8:44am completed Relevant Diagnostic Tests and/or Laboratory Data Diagnostic Imaging Reports Author Francisco Alas [facility]Report Date/TimeDece2024 11:02am [facility] [place] [address] MRI Report Signed Patient: Ryder Fountain MR#: [id number] : 1950 Acct:[id number] Age/Sex: 75 / M ADM Date: 5 Loc: [facility] Room: Type: [facility] Attending Dr: Erin HILTON Copies to: LIDA Grewal~ Ordering Provider: LIDA Grewal Date of Service: 05/24/25 MR/MR lumbar spine wo con: M48.062 MR lumbar spine wo con 05/24/2025 9:01 AM SIGNS AND SYMPTOMS: Chronic low back pain radiating into lower extremities with numbness and tingling PROTOCOL: Multiplanar multisequence MR images of the lumbar spine without IV contrast COMPARISON: 08/12/2023 and 01/01/2023 FINDINGS: There is 3 mm of retrolisthesis of L2 upon L3 similar to the prior exam. The bones are otherwise in anatomic alignment. There is preservation of vertebral body heights and intervertebral disc spaces. The marrow signal is within normal limits. The conus terminates at the mid L1 vertebral body level. No epidural or paraspinous fluid collection is appreciated. At T12-L1: There is a broad-based disc bulge. No significant spinal canal or neural foraminal narrowing. At L1-L2: There is a broad-based disc bulge with facet hypertrophy. There is minimal spinal canal stenosis with mild bilateral neural foraminal narrowing similar to the prior exam. At L2-L3: There is a broad-based disc bulge with facet hypertrophy and small bilateral facet effusions. There is mild spinal canal stenosis with mild bilateral neural foraminal narrowing similar to the prior exam. At L3-L4: There is a broad-based disc bulge with facet hypertrophy. There is mild spinal canal stenosis. There is endplate osteophyte formation. There is mild right and moderate left neural foraminalnarrowing. This is unchanged. At L4-L5: There is a circumferential disc bulge with endplate osteophyte formation. There is facet and operative ligament flavum thickening. There is moderate spinal canal stenosis with moderate to severe right and moderate left neural foraminal stenosis. This is unchanged. At L5-S1: There is a circumferential disc bulge with endplate osteophyte formation and facet hypertrophy. There is mild spinal canal stenosis with moderate left and severe right neural foraminal narrowing. Is mass effect on the exiting right L5 nerve roots. This is unchanged. MR/MR lumbar spine wo con IMPRESSION: At L5-S1: There is a circumferential disc bulge with endplate osteophyte formation and facet hypertrophy. There is mild spinal canal stenosis with moderate left and severe right neural foraminal narrowing. Is mass effect on the exiting right L5 nerve roots. This is unchanged. At L4-L5: There is a circumferential disc bulge with endplate osteophyte formation. There is facet and operative ligament flavum thickening. There is moderate spinal canal stenosis with moderate to severe right and moderate left neural foraminal stenosis. This is unchanged. Additional lesser degrees of degenerative changes are redemonstrated as above. Impression dictated by: Francisco Alas M.D. 05/24/2025 11:02 AM Dictation Location: [place] [address] Transcribed By: [facility] 05/24/25 1102 Dictated By: Francisco Alas II, MD 05/24/25 1058 Signed By: <Electronically signed by Francisco Alas II, MD in OV> 05/24/25 1102 Advance Directives Advance Directive Response Recorded Date/ Time Advance Directives No July 1:58pm Insurance Providers Guarantor Sue Patiño Address [address] [place] [phone] Info.Home Phone: Payer Group Member ID Coverage Type Subscriber Relationship to Subscriber Effective Date Expiration Date Medicare [id number] Alegria Id: [id number] [address] [place], [place] [address] Home Phone: Email: [email or web address] [facility] Id: [id number] Klingler , M Id: [id number] [address] [place], [place] [address] Home Phone: Email: [email or web address] Ret[employer] Id: [id number] Klingler , M Id: [id number] [address] [place] [phone] Home Phone: Email: [email or web address] Id: [id number] Klingler , M Id: [id number] [address] [address] Home Phone: Email: [email or web address] [email or web address] Id: [id number] Klingler , M Id: [id number] [address] [address] Home Phone: Email: [email or web address] Encounter Location(s) Arrival/Admit Date Discharge/Departure Date Discharge/Departure Disposition Provider(s) Departed Clinical -[facility] [address] Closed May 24, 2025 8:40am May 24, 2025 8:41am Discharged to home care or self care (routine discharge) PRAFUL GrewalC
--- OUTSIDE RECORDS SUMMARY | 2025-05-31 09:39 | XMS_ITS | CCD ---
Author Organization [facility] CliniSypr Care Team Providers Care Education Officer Name Role Phone MD Deandre Monterroso Primary Care Provider [phone] MD Lionel Whitney Attending Provider Deandre Monterroso Primary Care Physician Leidy Plummer Unavailable Unavailable MD Deandre Monterroso Primary Care Provider [phone] MD Lionel Whitney Attending Provider oZran Chavez Unavailable SHARON, DR VILLEGAS Admitting Unavailable [...] Unavailable MD Deandre Monterroso Primary Care Provider [phone] MD Zoran Chavez Attending Provider MD Deandre Monterroso Primary Care Provider [phone] LIDA Lowery Attending Provider MD Deandre Monterroso Primary Care Provider LIDA Lowery Attending Provider Deandre Monterroso MD Primary Care Provider [phone] Lionel WHITNEY Attending Unavailable Lionel WHITNEY Attending Unavailable Lionel WHITNEY Admitting Unavailable Deandre Monterroso MD Primary Care Provider [phone] Lionel Whitney MD Attending Provider Lionel Whitney Admitting Unavailable Lionel Whitney Attending Unavailable Deandre Monterroso Primary Care Unavailable Deandre Monterroso Primary Care Unavailable Esther Lowery Admitting Unavailable Esther Lowery Attending Unavailable Deandre Monterroso Primary Care Unavailable Esther Lowery Admitting Unavailable Esther Lowery Attending Unavailable Lionel Whitney MD Unavailable [phone] Deandre Monterroso MD Primary Care Provider [phone] Aftab ZELAYA, Ingrid Tucker Unavailable [phone] Norberto Andrade MD Unavailable Deandre Monterroso MD Primary Care Provider CADY ESPINOSA Referring Unavailable DEANDRE MONTERROSO Primary Care Unavailable CADY ESPINOSA Referring Unavailable DEANDRE MONTERROSO Primary Care Unavailable CADY ESPINOSA Referring Unavailable DEANDRE MONTERROSO Primary Care Unavailable CADY ESPINOSA Referring Unavailable DEANDRE MONTERROSO Primary Care Unavailable Deandre Monterroso MD Primary Care Provider [phone] Lionel Whitney MD Unavailable Deandre Monterroso MD Primary Care Provider [phone] ALEXANDREA GUNTER Attending Unavailable RAYMOND, NORBERTO [...] Referring Unavailable VENNEPUREDDY, NORBERTO Referring Unavailable HOY, DEANRDE M Primary Care Unavailable VENNEPUREDDY, NORBERTO Attending Unavailable VENNEPUREDDY, NORBERTO Referring Unavailable HOY, DEANDRE M Primary Care Unavailable CADY ESPINOSA Attending Unavailable HODEANDRE Paredes ALEX Primary Care Unavailable CADY ESPINOSA Referring Unavailable CADY ESPINOSA Attending Unavailable CADY ESPINOSA Referring Unavailable HOY, DEANDRE ALEX Primary Care Unavailable Deandre Monterroso MD Primary Care Provider [phone] Syeda NOBLE, Tamiko Kilgore Attending Unavailable Syeda [...] of OnsetReaction(s) Facility (10 sources)Acetaminophen; Translations: [acetaminophen]Drug Dirgmni74-64-3671 Itching, Itching agitated, Itching agitated, [facility] (20 sources)Codeine; Translations: [Codeine]Drug Lkuepxa98-28-6300rnquWilson [facility] Hospital (12 sources)oxyCODONE; Translations: [oxycodone]Drug Pscrsqh30-15-7272Mvahxdd, agitated, Itching, agitated, [facility] (16 sources)Acetaminophen / oxyCODONE; Translations: [acetaminophen-oxycodone] Drug AllergyaggitationExecutive [facility] Rolando Comment on above:pt states this does not work for pt, pt is not allergic to vicodin (7 sources)cyclobenzaprineDrug Qbginzj65-00-3405rxzojezNwalbqombCleveland Clinic [facility] (20 sources)HYDROcodoneDrug Ukteoyl37-17-3808laimmibTtsxuvfuj [facility] (7 sources)tiZANidineDrug Zrmsktk07-30-5885oszvxMkwxpajalCincinnati VA Medical Center (7 sources)Acetaminophen / HYDROcodone; Translations: [Vicodin][facility] (2 sources)Acetaminophen / oxyCODONEDrug AllergyParma Community [facility] (1 source)atorvastatinDrug AllergyParma [facility] (2 sources)tiZANidineDrug AllergyParma Community [facility] (5 sources)Acetaminophen / oxyCODONE; Translations: [Percocet 5/325]Drug Allergy [facility] Repository (1 source)cyclobenzaprineDrug Ggphkxp51-48-6700PqitokqnyUniversity Hospitals [facility] Repository (1 source)HYDROcodoneDrug Lrrqfpo66-97-0018ZggdbnykiUniversity Hospitals [facility] Rep[facility] (1 source)tiZANidineDrug Giiyuyi70-39-9019FrzvrjjsbUniversity Hospitals [facility] (16 sources)Acetaminophen / oxyCODONE; Translations: [OXYCODONE-ACETAMINOPHEN] Drug Gssdujn80-32-0939[facility] (16 sources)tiZANidine; Translations: [TIZANIDINE HCL]Drug Chzdokj96-45-5151[facility] Medications Current Medications MedicationDrug Class(es)DatesSig (Normalized)Sig (Original)acetaminophen 325 mg / HYDROcodone bitartrate 5 mg oral tablet (20 sources)Opioid AgonistStart: 79-74-7313cyywtvjqayhig-hydrocodone 325 mg-5 mg oral tablet 1 tab(s), Refill(s) 0 Start Date: 10/09/24 Status:Ordered Repeat number: 1Start: 99-38-8050cnup 1 tablet by mouth every twenty-four hours as neededHYDROcodone-acetaminophen (NORCO) 5-325 mg per tablet Take 1 tablet by mouth at bedtime as needed. 08/12/2023 ActiveStart: 61-80-7540zdxw 1 tablet by mouth every twenty-four hours as neededHYDROcodone-acetaminophen ([place]) 5-325 mg tablet Take 1 tablet by mouth once daily as needed for severe pain (7 - 10). 08/12/2023 ActiveStart: 66-66-9505Qsptmdqymqo-Acetaminophen 5-325 mg tablet Active 1 TAB PO August 12, 2023 12:00amStart: 57-40-5795xuuc 1 tablet by mouth every six hours as needed for painacetaminophen-hydrocodone 325 mg-5 mg oral tablet 1 tab(s), Oral, q6hr as needed for pain, Refill(s) 0 Start Date: 02/03/23 Status: OrderedamLODIPine 10 mg oral tablet (20 sources)Dihydropyridine Calcium Channel BlockerStart: 08-12-2023 End: 92-76-1329ogPTWPEfmp (Norvasc) 10 MG tablet 01/22/2024 10/06/2024 Discontinued (Therapy completed)Start: 02-10-2023 End: 20-64-3316zzab 1 tablet by mouth once dailyamLODIPine (NORVASC) 5 mg tablet Take 5 mg by mouth once daily. 02/10/2023 07/26/2024 Discontinued (Discontinued by another Health Care Provider)Start: 08-07-2019 End: 09-12-6370ivif 1 tablet by mouth at bedtimeAmlodipine 10 mg Tablet Discontinued 10 MG PO Bedtime August 07, 2019 12:00am October 17, 2021 1 1:30amaspirin 81 mg chewable tablet (1 source)Platelet Aggregation Inhibitor, Nonsteroidal Anti-inflammatory Drug Start: 12-11-2024 End: 06-55-8103vpkfmit 81 mg chewable tablet Take 81 mg by mouth every 48 hours. 12/11/2024 12/11/2025 Activecarvedilol 25 mg oral tablet (20 sources)alpha-Adrenergic Boogie, beta-Adrenergic BlockerStart: 10-17-2021 take 1 tablet by mouth twice dailyCarvedilol 25 mg Tablet Active 25 MG PO Twice daily October 16, 2021 11:00pmStart: 13-55-2898dqpx 2 tablets by mouth twice dailycarvedilol 6.25 mg Tab 12.5 mg = 2 tab(s), Oral, BID, Refills(s) 0 Start Date: 09/19/21 Status: OrderedStart: 28-72-4334ocayomzytq 6.25 mg Tab Refills(s) 0 Start Date: 09/19/21 Status: Orderedtake 1 tablet by mouth every twelve hours Carvedilol 12.5 MG 1 tablet with food Orally Twice a day Activecelecoxib 200 mg oral capsule (5 sources)Nonsteroidal Anti-inflammatory DrugStart: 10-27-2024 End: 58-20-2584yebc 1 capsule by mouth once daily at mealtimecelecoxib (CeleBREX) 200 MG capsule Indications: Acute hip pain, left Take 1 capsule (200 mg) by mouth Daily Take with food 30 capsule 1 10/27/2024 12/26/2024 Active colchicine 0.6 mg oral tablet (17 sources)Start: 02-03-2023 End: 29-36-4221hydn 1 tablet by mouth once daily as needed for painColcrys 0.6 mg oral tablet 0.6 mg = 1 tab(s), Oral, Daily, PRN Gout pain, Refills(s) 0 Start Date: 02/03/23 Status: Ordered Repeat number: 1diclofenac sodium 75 mg delayed release oral tablet (20 sources)Nonsteroidal Anti-inflammatory DrugStart: 10-17-2021 End: 05-08-0483qurm 1 tablet by mouth twice dailydiclofenac sodium 75 mg Oral EC Tab 75 mg = 1 tab(s), Oral, BID, Refills(s) 0 Start Date: 02/03/23 Status: Ordered Repeat number: 1Start: 08-07-2019 End: 32-69-6698pzah 1 tablet by mouth twice daily as needed for painDiclofenac Sodium 75 mg Tablet,Delayed Release (Dr/Ec) Discontinued 75 MG PO Twice daily as needed for Pain August 07, 2019 12:00am April 19, 2020 7:04amdoxazosin 1 mg oral tablet (20 sources)alpha-Adrenergic BlockerStart: 07-17-2024 End: 83-89-1210qvxutotjy 1 mg Tab 1 mg = 1 tab(s), Refills(s) 0 Start Date: 10/09/24 Status: Ordered Repeat number:1enteric contrast (will be provided with radiology test) (13 sources)Start: 40-10-2757snaidqe contrast (will be provided with radiology test) For CT CHESTABD/PEL W IVCON Routine order Administer, As Directed One Time Only, via Oral, Rectal, both Oral and Rectal, Enteric Tube, Stoma orIndwelling Catheter, Enteric Contrast as designated per enteric contrast guidelines 1 Each 08/16/2024 Activefluorouracil 50 mg/ml topical cream (7 sources)Nucleoside Metabolic InhibitorStart: 09-11-2024 End: 78-70-1357Sgioznrlcoha 5 % cream Apply to directed areas on the forearms and backs of hands twice a day x 14 days. Dispense 30 day supply but only use for 14 days. 09/11/2024 Unnemm95 actuat fluticasone furoate 0.1 mg/actuat / umeclidinium 0.0625 mg/actuat / vilanterol 0.025 mg/actuat dry powder inhaler (20 sources)Anticholinergic, Corticosteroid, beta2-Adrenergic AgonistStart: 77-79-6096dkfl 1 puff(s) by inhalation once gasfcynfzixcmslk-taufyikhw-fwygiwgm (TRELEGY ELLIPTA) 100-62.5-25 mcg inhalation powder = 1 puff(s), Inhalation, Daily, Refills(s) 0 02/03/2023 ActiveStart: 08-07-2019 Hytbpukmxks-Tnvfxyxiw-Vdiiauat (Trelegy Ellipta) 100-62.5-25 mcg Blister With Device Active 1 INH INHALATION Daily August 07, 2019 3:01pmStart: 08-07-2019 Bwabqqdibdc-Cuunyuawg-Ssvftcpq (Trelegy Ellipta) 100-62.5-25 mcg Blister With Device Active 1 INH INHALATION Daily August 07, 2019 12:00amStart: 97-67-4063Xkuejcxylic-Umeclidin-Vilanter (Trelegy Ellipta) 100-62.5-25 mcg Blister With Device Active 1 INH INHALATION Daily August 07, 2019 1:00am Wtjxjpzmppg-Putohjnks-Shwtif (Trelegy Ellipta) 100-62.5-25 MCG/ACT aerosol powder Inhale. Activetake 1 puff(s) by inhalation once daily kailnwvdnxw-kkmqtmhrh-mavtatwu (TRELEGY ELLIPTA) 100-62.5-25 mcg inhalation powder Inhale 1 Puff asinstructed once daily. Activetake 1 puff(s) by inhalation in the morningTrelegy Ellipta 100-62.5-25 mcg blister with device Inhale 1 puff early in the morning.. ActivehydroCHLOROthiazide 12.5 mg / lisinopril 20 mg oral tablet (20 sources)Thiazide Diuretic, Angiotensin Converting Enzyme InhibitorStart: 07-17-2024 End: 22-83-1152cryv 1 tablet by mouth in the morninglisinopril- hydroCHLOROthiazide 20-12.5 MG tablet Take 1 tablet by mouth in the morning. 07/17/2024 07/17/2025 ActiveStart: 05-08-2024 End: 91-61-6745zinf 1 tablet by mouth once dailylisinopril-hydroCHLOROthiazide (ZESTORETIC) 20-12.5 mg per tablet Take 1 tablet by mouth once daily. 07/17/2024 07/17/2025 Activeiv contrast (will be provided with radiology test) (13 sources)Start: 32-45-1394an contrast (will be provided with radiology test) [...] oral tablet (3 sources)Quinolone AntimicrobialStart: 11-25-2023 End: 46-92-0726gkaoHZDCzqsp (Levaquin) 750 MG tablet 11/25/2023 10/06/2024 Discontinued (Therapy completed)levothyroxine sodium 0.025 mg oral tablet (16 sources)l-Thyroxinelevothyroxine (Synthroid, Levoxyl) 25 MCG tablet Take 12.5 mcg by mouth in the morning. Take beforemeals. Activelevothyroxine (Synthroid, Levoxyl) 25 MCG tablet Take by mouth Daily before meals Active End: 63-46-4784wvzu 0.5 tablet by mouth in the morninglevothyroxine (Synthroid, Levoxyl) 25 mcg tablet Take 0.5 tablets (12.5 mcg) by mouth early in the m orning.. 05/08/2024 Discontinued (Therapy completed)liothyronine (20 sources)l-TriiodothyronineStart: 35-89-6569digc 1 tablet by mouth once daily Liothyronine 5 mcg tablet Active 25 MCG PO Daily October 10, 2023 11:00pmStart: 18-37-0742aclc 25 ug by mouth once dailyLiothyronine Active 25 MCG PO Daily October 11, 2023 12:00amStart: 90-47-5932pwrs 1 tablet by mouth in the morning liothyronine (Cytomel) 25 MCG tablet Take 25 mcg by mouth in the morning. 10/04/2023 ActiveStart: 91-71-8865khhm 0.5 tablet by mouth once daily liothyronine (Cytomel) 25 mcg tablet Take 0.5 tablets (12.5 mcg) by mouth once daily. 10/04/2023 ActiveStart: 06-97-4714occamcfwnesu 25 mcg Tab Refills(s) 0 Start Date: 10/04/23 Status: Ordered Repeat number: 1lisinopril 20 mg oral tablet (20 sources)Angiotensin Converting Enzyme InhibitorStart: 06-22-2017 End: 36-37-2728ymhx 1 tablet by mouth at bedtimeLisinopril 40 mg Tablet Discontinued 40 MG PO Bedtime August 07, 2019 12:00am October 17, 2021 1 1:24amStart: 02-19-2017 End: 88-91-0139unoiotclbh 20 mg Tab 20 mg = 1 tab(s), Refills(s) 0 Start Date: 10/09/24 Status: Ordered Repeat number: 1methocarbamol 500 mg oral tablet (20 sources)Muscle RelaxantStart: 21-93-0504kuvl 1 tablet by mouth every twenty- four hours as neededmethocarbamol (Robaxin) 500 mg tablet Take 1 tablet (500 mg) by mouth once daily as needed for muscle spasms. 04/21/2023 Active End: 34-46-5538kqiowythaopvn 1,000 mg tablet Take 1,000 mg by mouth as needed (bedtime prn). 12/13/2024 Discontinued (Discontinued by another Health Care Provider) End: 77-37-6694Gqnptxmpqwzit 1000 MG tablet Take 1,000 mg by mouth 10/06/2024 Discontinued (Therapy completed)Methocarbamol 1000 MG tablet Take 1,000 mg by mouth Activemethocarbamol 1,000 mg tablet Take 1,000 mg by mouth as needed (bedtime prn). Activemetoprolol tartrate 50 mg oral tablet (5 sources)beta-Adrenergic BlockerStart: 03-28-2024 End: 41-89-6480vzyfsxfqdt tartrate (Lopressor) 50 MG tablet 03/28/2024 10/06/2024 Discontinued (Therapy completed)Start: 96-73-5451Mqkcvxadrf Tartrate Active MG PO March 28, 2024 12:00amMultivitamin preparation (10 sources)Start: 95-04-0294wftl 1 tablet by mouth once dailyMultivitamin Active 1 TAB PO Daily October 17, 2021 12:31pmStart: 62-66-7014jtpt 1 tablet by mouth once dailyMultivitamin Active 1 TAB PO Daily October 16, 2021 11:00pm Start: 76-36-5904zwfq 1 tablet by mouth once dailyMultivitamin Active 1 TAB PO Daily October 17, 2021 12:00amMultivitamin Tablet (1 source)Start: 96-03-8232kkfc 1 tablet by mouth once dailyMultivitamin Tablet [...] day Activeomeprazole 40 mg Cap-EC (2 sources)Start: 36-18-4629uqig 1 capsule by mouth once dailyomeprazole 40 mg Cap-EC 40 mg = 1 cap(s), Oral, Daily, Refills(s) 0, Control of stomach acid Start Date: 08/22/14 Status: Orderedpantoprazole 40 mg delayed release oral tablet (20 sources)Proton Pump InhibitorStart: 60-34-3427Bsznvlejtxzt Active MG PO August 12, 2023 1:00amStart: 45-15-4646nbmi 1 tablet by mouth at bedtime pantoprazole (ProtoNix) 40 MG EC tablet Take 40 mg by mouth at bedtime. 10/18/2022 Activerosuvastatin calcium 20 mg oral tablet (20 sources)HMG-CoA Reductase InhibitorStart: 05-08-2024 End: 99-59-3191symw 1 tablet by mouth in the morningrosuvastatin (Crestor) 20 MG tablet Take 20 mg by mouth in the morning. 07/17/2024 07/17/2025 Active sildenafil 100 mg oral tablet (20 sources)Phosphodiesterase 5 InhibitorStart: 16-79-0437vfwf 1 tablet by mouth once daily as neededsildenafil 100 mg Tab 100 mg = 1 tab(s), Oral, Daily, Take as needed 30 minutes prior to sexual relations, # 30 tab(s), Refills(s) 2, Pharmacy: [id number], 180, cm, 02/26/25 8:38:00 EDT, Height/Length Dosing, 86, kg, 02/26/25 8:38:00 EDT, Weight Dosing Start Date: 02/26/25 Status: Ordered Quantity: 30.0 Unit: tab(s) Repeat number: 3Start: 42-83-6510vwdo 1 tablet by mouth every hour as needed, then take 1 tablet by mouth every twenty- four hours asneededsildenafil (Viagra) 100 MG tablet TAKE 1 TABLET BY MOUTH 1 HR PRIOR TO SEXUAL ACTIVITY NEEDED. DON T EXCEED 1 TABLET IN A 24 HR PERIOD 10/14/2023 ActiveStart: 51-51-7694ygwr 1 tablet by mouth every twenty-four hours sildenafil 100 mg Tab 100 mg = 1 tab(s), Oral, As Directed, Take 1 tablet 1 hr prior to sexual activity as needed. Don't exceed 1 tab (100 mg) in a 24 hr period., # 30 tab(s), Refills(s) 3, Pharmacy:[id number], 170, cm, 10/04/23 10:36:00 EDT, Height/Length Dosing, 84, kg, 10/04/23 10:36:00 EDT, Weight Dosing Start Date: 10/04/23 Status: Ordered Quantity: 30.0 Unit: tab(s) Repeat number: 4Start: 30-48-4600dugl 1 tablet by mouth every twenty-four hours sildenafil 100 mg Tab 100 mg = 1 tab(s), Oral, Daily, Take 1 tablet 1 hr prior to sexual activity as needed. Don't exceed 1 tab (100 mg) in a 24 hr period., # 30 tab(s), Refills(s) 3, Pharmacy: [id number], 170, cm, 02/24/22 10:53:00 EDT, Height/Length Dosing, 78, kg, 02/24/22 10:53:00EDT, Weight Dosing Start Date: 07/05/22 Status: OrderedStart: 12-81-3040pgniqcevrr 100 mg Tab 100 mg = 1 tab(s), Oral, Daily, Take 1 pill 30 minutes prior to sexual relations, # 30 tab(s), Refills(s) 3, Pharmacy: [id number], 170, cm, 09/19/21 10:16:00 EDT, Height/Length Dosing, 78, kg, 09/19/21 10:16:00 EDT, Weight Dosing Start Date: 09/19/21 Status: Orderedsolifenacin succinate 10 mg oral tablet (15 sources)Cholinergic Muscarinic AntagonistStart: 69-11-2297carmfjqutgb (VESIcare) 10 MG tablet 07/06/2024 ActiveTENS Unit (2 sources)Start: 12-05-2333xrJWCtxmcv 4 mg oral tablet (5 sources)Central alpha-2 Adrenergic AgonistStart: 26-73-1077moof 1 tablet by mouth every six hours as neededtiZANidine (ZANAFLEX) 4 mg tablet Take 4 mg by mouth every 6 hours as needed. 08/12/2024 ActiveStart: 47-53-8965axxg 1-2 tablets by mouth at bedtime as [...] mcg-62.5 mcg-25 mcg inhalation powder (13 sources)Start: 11-41-0258qukg 1 puff(s) by inhalation once dailyTrelegy Ellipta 100 mcg-62.5 mcg-25 mcg inhalation powder = 1 puff(s), Inhalation, Daily, Refills(s) 0 Start Date: 02/03/23 Status: Ordered Repeat number: 1Start: 90-53-9602hpvc 1 puff(s) by inhalation once dailyTrelegy Ellipta 100 mcg-62.5 mcg-25 mcg inhalation powder = 1 puff(s), Inhalation, Daily, Refills(s) 0 Start Date: 02/03/23 Status: Ordered Completed/Discontinued Medications MedicationDrug Class(es)DatesSig (Normalized)Sig (Original)allopurinol 300 mg oral tablet (13 sources)Xanthine Oxidase InhibitorStart: 08-07-2019 End: 24-74-3840yewy 1 tablet by mouth once dailyAllopurinol 300 mg Tablet Discontinued 300 MG PO Daily August 07, 2019 12:00am April 11, 2020 12:50pmbcg (TANISHA BCG) 50 mg in NaCl 0.9% 50 mL (6 sources)Start: 09-13-2024 End: 08-78-534270 mg, INTRAVESICAL, ONCE, 1 dose, On Wed09/13/24 at 1400, Instill into bladder via catheter and retain for 120 minutes, followed by bladder drainage. PROTECT FROM LIGHT Hazardous Chemotherapy Drug: Use appropriate PPE. Protect from Light.Start: 08-30-2024 End: 78-22-452723 mg, INTRAVESICAL, ONCE, 1 dose, On Wed08/30/24 at 1330, Instill into bladder via catheter and retain for 120 minutes, followed by bladder drainage. PROTECT FROM LIGHT Hazardous Chemotherapy Drug: Use appropriate PPE. Protect from Light.Start: 08-23-2024 End: 54-52-627773 mg, INTRAVESICAL, ONCE, 1 dose, On Wed08/23/24 at 1400, Instill into bladder via catheter and retain for 120 minutes, followed by bladder drainage. PROTECT FROM LIGHT Hazardous Chemotherapy Drug: Use appropriate PPE. Protect from Light.Start: 08-16-2024 End: 63-43-201257 mg, INTRAVESICAL, ONCE, 1 dose, On Wed08/16/24 at 1400, Instill into bladder via catheter and retain for 120 minutes, followed by bladder drainage. PROTECT FROM LIGHT Hazardous Chemotherapy Drug: Use appropriate PPE. Protect from Light.Start: 08-09-2024 End: 69-35-910720 mg, INTRAVESICAL, ONCE, 1 dose, On Wed08/09/24 at 1430, Instill into bladder via catheter and retain for 120 minutes, followed by bladder drainage. PROTECT FROM LIGHT Hazardous Chemotherapy Drug: Use appropriate PPE. Protect from Light.Start: 08-02-2024 End: 85-89-720324 mg, INTRAVESICAL, ONCE, 1 dose, On Wed08/02/24 at 1000, Instill into bladder via catheter and retain for 120 minutes, followed by bladder drainage. PROTECT FROM LIGHT Hazardous Chemotherapy Drug: Use appropriate PPE. Protect from Light.cephalexin 500 mg oral capsule (9 sources)Cephalosporin AntibacterialStart: 02-17-2022 End: 77-34-9097zama 1 capsule by mouth every twelve hoursCephalexin 500 mg capsule Discontinued 500 MG PO Q12H 14 February 16, 2022 11:00pm July 11:08amStart: 03-84-0051ahuq 500 mg by mouth every twelve hours Cephalexin Active 500 MG PO Q12H 14 February 17, 2022 12:00amStart: 02-17-2022 take 500 mg by mouth every twelve hoursCephalexin Active 500 MG PO Q12H 14 February 17, 2022 12:00amciprofloxacin 500 mg oral tablet (13 sources)Quinolone AntimicrobialStart: 10-10-6832hqdk 1 tablet by mouth once dailyCipro 500 mg Tab 500 mg = 1 tab(s), Oral, Daily, Take 1 tablet the day before the procedure and 1 tablet after the procedure, # 2 tab(s), Refills(s) 0, Pharmacy: [facility]/pharmacy #[id number], 170, cm, 10/25/2410:14:00 EDT, Height/Length Dosing, 84, kg, 10/04/23 10:36:00 EDT, Weight Dosing Start Date: 04/13/24 Status: OrderedStart: 74-85-1444moca 1 tablet by mouth once dailyCipro 500 mg Tab 500 mg = 1 tab(s), Oral, Daily, take one tab day before procedure and one tab after procedure, # 2 tab(s), Refills(s) 0, Pharmacy: [facility]/pharmacy #[id number], 170, cm, 01/20/23 10:45:00 EDT,Height/Length Dosing, 83.5, kg, 01/20/23 10:45:00 EDT, Weight Dosing Start Date: 01/20/23 Status: OrderedStart: 14-10-9839zwlc 1 tablet by mouth once dailyCipro 500 mg Tab 500 mg = 1 tab(s), Oral, Daily, Take 1 tablet the day before the procedure and 1 tablet after the procedure, # 6 tab(s), Refills(s) 0, Pharmacy: [facility]/pharmacy #[id number], 170, cm, 09/23/2311:23:00 EDT, Height/Length Dosing, 78, kg, 02/24/22 10:53:00 EDT, W... Start Date: 12/31/22 Status:OrderedStart: 59-06-0141ykqv 1 tablet by mouth once dailyCipro 500 mg Tab 500 mg = 1 tab(s), Oral, Daily, Take 1 tablet the day before the procedure and 1 tablet after the procedure, # 6 tab(s), Refills(s) 0, Pharmacy: [facility]/pharmacy #[id number], 170, cm, 02/24/2210:53:00 EDT, Height/Length Dosing, 78, kg, 02/24/22 10:53:00 EDT, W... Start Date: 07/02/22 Status:OrderedStart: 11-05-2021 take 1 tablet by mouth once dailyCipro 500 mg Tab 500 mg = 1 tab(s), Oral, Daily, Take 1 tab at nighttime prior to the day of procedure, then 1 tab right after the procedure, # 2 tab(s), Refills(s) 0, Pharmacy: [facility]/pharmacy #[id number], 17 0, cm, 11/05/21 11:37:00 EDT, Height/Length Dosing, 78, kg, 11/05/21... Start Date: 11/05/21 Status:OrderedcloNIDine hydrochloride 0.1 mg oral tablet (20 sources)Central alpha-2 Adrenergic AgonistStart: 02-17-2022 End: 80-66-2247dozv 1 tablet by mouth twice dailyClonidine Hcl 0.1 mg Tablet Discontinued 0.1 MG PO Twice daily February 16, 2022 11:00pm October 11, 2023 2:25pmStart: 88-08-7015vytm 0.1 mg by mouth twice dailyClonidine Hcl Active 0.1 MG PO Twice daily February 17, 2022 12:00amStart: 70-62-6446zbou 0.1 mg by mouth twice dailyClonidine Hcl Active 0.1 MG PO Twice daily February 17, 2022 12:00am diazePAM 5 mg oral tablet (11 sources)BenzodiazepineStart: 04-19-2020 End: 28-01-2131jqvh 1 tablet by mouth four times daily as needed for muscle spasmsDiazepam 5 mg Tablet Discontinued 5 MG PO Four times daily as needed for Muscle Spasm 40 10 2019 11:00pm October 17, 2021 11:30amdoxycycline hyclate 100 mg oral capsule (1 source)Tetracycline-class DrugStart: 37-86-1319xdck 1 capsule by mouth twice dailydoxycycline hyclate 100 mg Cap 100 mg = 1 cap(s), Oral, BID, Take 1 capsule the day before the procedure and 1 capsule after the procedure, # 2 cap(s), Refills(s) 0, Pharmacy: [facility]/pharmacy #[id number], 188, cm, 02/10/23 14:22:00 EDT, Height/Length Dosing, 82.9, kg, 02/10/23 14:22:00 EDT, Weight Dosing Start Date: 04/12/23 Status: Orderedirbesartan 300 mg oral tablet (20 sources)Angiotensin 2 Receptor BlockerStart: 10-17-2021 End: 05-34-3501bkow 1 tablet by mouth once daily at [...] Wed08/02/24 at 1000, Intravesical administrationStart: 08-12-2023 End: 76-25-5887uyyab 1 dose topically once dailyLidocaine 5 % adhesive patch,medicated Discontinued 1 PATCH TOPICAL Daily August 12, 2023 12: 00am October 11, 2023 2:26pm leave on most painful area for up to 12 hrslosartan potassium 100 mg oral tablet (9 sources)Angiotensin 2 Receptor BlockerStart: 02-06-2022 End: 64-67-2765duie 1 tablet by mouth once daily at bedtimeLosartan 100 mg tablet Discontinued 100 MG PO Daily at bedtime February 05, 2022 11:00pm February 17, 2022 9:48ammethylPREDNISolone acetate 20 mg/ml injectable suspension (4 sources)CorticosteroidStart: 10-06-2024 End: 53-36-2666lqailhJSZLFLBhbzck Acetate (DEPO-Medrol) injection 40 mgStart: 10-06-2024 End: 24-37-532187 mg, Intra-articular, Once PRN Procedure, Starting on Wed10/06/24 at 1030, For 1 doseomeprazole 40 mg delayed release oral capsule (20 sources)Proton Pump InhibitorStart: 08-22-2014 End: 45-32-6214kkpm 1 capsule by mouth once daily as needed for gastroesophageal reflux diseaseOmeprazole 40 mg Capsule,Delayed Release(Dr/Ec) Discontinued 40 MG PO Daily as needed for HeartburnFebruary 2019 12:00am October 11, 2023 2:26pmoxyCODONE hydrochloride 5 mg oral tablet (11 sources)Opioid AgonistStart: 04-19-2020 End: 31-13-0227kuju 1 tablet by mouth every four to [...] injection 10 millicurie (1 source)Start: 09-20-2024 End: 57-83-925576 millicurie, intravenous, Once in imaging, Starting on Wed09/20/24 at 1238, For 1 dose, Cockjyczxk96 to 90 minutes prior to imaging unless otherwise indicated.Tc-99m tetrofosmin (Myoview) injection 30 millicurie (1 source)Start: 09-20-2024 End: millicurie, intravenous, Once in imaging, Starting on Wed09/20/24 at 1349, For 1 dose, Fnljfftcml80 to 90 minutes prior to imaging unless otherwise indicated. Problems Active Problems Problem ClassificationProblemDateDocumented DateEpisodic/ChronicAcute and unspecified renal failure (1 source)Acute kidney failure, unspecified; Translations: [ACUTE KIDNEY FAILURE UNSPECIFIED]Onset: 74-87-0257AhvdvyfaXvlqth of bladder (20 sources)Malignant tumor of urinary bladder; Translations: [Malignant neoplasm of bladder, unspecified]Onset: 04-66-8775MavwpjvKjsvrj of bladder (20 sources)Personal history of malignant neoplasm of bladder; Translations: [History of malignant neoplasm of bladder]Onset: 59-23-1603QvbomxspXzwnlp of prostate (20 sources)Malignant tumor of gifkcsgu81-41-0698JuoxhphBrwmxjc on above:[facility] other and unspecified primary (11 sources)H/O: malignant mavnirkm66-34-8038PbkfxeioJdxwftb obstructive pulmonary disease and bronchiectasis (17 sources)Chronic obstructive lung disease; Translations: [Chronic obstructive pulmonary disease, unspecified]15-65-9188TscqsjbBovhaaj on above: mild Deficiency and other anemia (14 sources)Iron deficiency anemia; Translations: [Iron deficiency anemia, unspecified]Onset: 62-28-4805CgpnimaqVptotabju of lipid metabolism (13 sources)Mixed hyperlipidemia; Translations: [Mixed hyperlipidemia]Onset: 230409-43-7908PfszzidUhwhxalhwj disorders (20 sources)Gastroesophageal reflux disease; Translations: [Gastro-esophageal reflux disease without esophagitis]Onset: 942842-93-5332KznlmnuVkmllctjx hypertension (20 sources)Hypertensive disorder; Translations: [Essential hypertension]Onset: 570468-57-1416FelzayvHbgzo and electrolyte disorders (1 source)Hypokalemia; Translations: [HYPOKALEMIA]Onset: 34-17-4447Ykfdngtd Genitourinary symptoms and ill-defined conditions (3 sources)Blood in urine; Translations: [Gross hematuria]Onset: 11-04-2021 EpisodicGout and other crystal arthropathies (20 sources)Primary gout; Translations: [Other chondrocalcinosis, right knee] Onset: 690227-06-0582AasmwlbWkohstq on above:lots of inflammation per pt sometimes has to get steroidsImmunizations and screening for infectious disease (4 sources)Infectious disease carrier; Translations: [Carrier of infectious disease, unspecified]88-58-6716BsrccrzrRzhcpqvcr of unspecified nature or uncertain behavior (2 sources)Neoplastic disease; Translations: [Neoplasm of unspecified behavior of bone, soft tissue, and skin]72-90-5546AevjydrtKcedlwrmc or stenosis of precerebral arteries (16 sources)Occlusion and stenosis of bilateral carotid arteries; Translations: [Occlusion and stenosis of unspecified carotid artery]Onset: 70-76-8616Zqtmplw Osteoarthritis (20 sources)Osteoarthritis; Translations: [Osteoarthrosis, unspecified whether generalized or localized, unspecified site]Onset: 397888-59-9474Amusvkk Other acquired deformities (2 sources)Acquired spondylolisthesis; Translations: [Spondylolisthesis, cervical region]EpisodicOther aftercare (3 sources)Taking high risk medication; Translations: [Other terminal operator (current) drug therapy]31-74-4876PktezwilWvbkx and unspecified benign neoplasm (14 sources)History of polyp of colon; Translations: [Personal history of colonic polyps]Onset: 45-14-3487HpcqznwiOblvw circulatory disease (6 sources)Disorder of carotid artery; Translations: [Disorder of arteries and arterioles, unspecified]Onset: 840921-58-1820CgvyznsUebws connective tissue disease (2 sources)Other symptoms and signs involving the nervous systemEpisodicOther connective tissue disease (8 sources)Trochanteric bursitis of left hip; Translations: [Trochanteric bursitis, left hip]44-02-6096DzuomxvxEaukz ear and sense organ disorders (15 sources)Sensorineural hearing loss, bilateral; Translations: [Sensorineural hearing loss, bilateral]Onset: 366400-18-1089XqmkchoNsirz gastrointestinal disorders (14 sources)Altered bowel function; Translations: [Change in bowel habit]Onset: 66-35-8613YbneevehQmbtk lower respiratory disease (1 source)Other forms of dyspnea; Translations: [OTHER FORMS OF DYSPNEA]Onset: 62-91-9703DqegvratNtguz male genital disorders (6 sources)Secondary erectile dysfunction; Translations: [Erectile dysfunction following radical prostatectomy]Onset: 70-53-2816IpwcorpQiwtv male genital disorders (20 sources)Erectile dysfunction following radical prostatectomy; Translations: [Erectile dysfunction followingradical prostatectomy]Onset: ChronicOther nervous system disorders (4 sources)Neuralgia/neuritis - ankle/foot; Translations: [Unspecified mononeuropathy of left lower limb]ChronicOther nervous system disorders (19 sources)Chronic pain; Translations: [Other chronic pain]Onset: 01-12-2023 88-42-5564BrciwixLqlmp nervous system disorders (2 sources)Other chronic painChronicOther non-traumatic joint disorders (10 sources)Hip pain; Translations: [Pain in left hip]24-13-0924EhcphfzjSbfbl skin disorders (2 sources)Actinic keratosis; Translations: [Actinic keratosis]02-27-2025 EpisodicPeripheral and visceral atherosclerosis (1 source)Peripheral vascular disease, unspecified; Translations: [PERIPHERAL VASCULAR DISEASE UNS]Onset: 94-78-4917BkxmjceQrswkadso (except that caused by tuberculosis or sexually transmitted disease) (1 source)Pneumonia, unspecified organism; Translations: [PNEUMONIA UNSPECIFIED ORGANISM]Onset: 07-49-4281GowlyfcsDxsdllqhhm (except in labor) (1 source)Sepsis, unspecified organism; Translations: [SEPSIS UNSPECIFIED ORGANISM]Onset: 40-19-8386XkiuckzkBeqkudqnwoj; intervertebral disc disorders; other back problems (20 sources)Degeneration of cervical intervertebral disc; Translations: [Other cervical disc degeneration, unspecified cervical region]Onset: 04-91-5545Uvmxsgp Unclassified (3 sources)LOW BACK PAIN, UNSPECIFIED; Translations: [LOW BACK PAIN, UNSPECIFIED]Onset: 03-26-7328Srmianmtmpks (2 sources)COUGH, UNSPECIFIED; Translations: [COUGH, UNSPECIFIED]Onset: 45-18-2875Tiqupcfuzjqq (1 source)CONTACT W/AND (SUSP) EXPOS COVID-19; Translations: [CONTACT W/AND (SUSP) EXPOS COVID-19]Onset: 77-87-2537Whxngtdqjrjn (13 sources)Body mass index 20-24 - xzvpaj93-47-6031 Past or Other Problems Problem ClassificationProblemDateDocumented DateEpisodic/ChronicAbdominal hernia (20 sources)Umbilical hernia; Translations: [Umbilical hernia without obstruction or gangrene]Onset: 896198-43-7070AvesavppBykxgtsm of urinary tract (20 sources)History of calculus of kidney; Translations: [Personal history of urinary calculi]Onset: 21-91-2672XaaykndeTnfgtp of prostate (20 sources)Personal history of malignant neoplasm of prostate; Translations: [History of malignant neoplasm ofprostate]Onset: 80-71-9768JozmzwylA Codes: Fall (1 source)Fall on same level from slipping, tripping and stumbling with subsequent striking against other object, initial encounter; Translations: [FALL SAME LVL SLIP STRK OTH OBJ INT]Onset: 28-77-5018PgfcdciwWonfsqrvqdm chest pain (15 sources)Chest discomfort; Translations: [Other chest pain]Onset: 07-17-2024 17-31-8792NzcjghpsDbwqi acquired deformities (20 sources)Spondylolisthesis; Translations: [Spondylolisthesis, cervical region]Onset: 050389-67-3843VhygghfvZuxkzwl on above:Problem List clean-up per request of Phys. EHR CmteOther aftercare (3 sources)Other terminal operator (current) drug therapy; Translations: [OTH PUBLIC HEALTH VETERINARIAN CURRENT DRUG THERAPY]Onset: 29-83-9869HyeqqfxdQjyod aftercare (11 sources)Treatment changed; Translations: [Other fdc (current) drug therapy]Onset: 896598-45-8064GlhhdlerUadmw circulatory disease (20 sources)Ecchymosis; Translations: [Hemorrhage, not elsewhere classified] Onset: 698328-26-6083NfjbaanbCdcmlxo on above:left leg from [place] to ankle- box with snowblower in it slipped off a cart and banged his leg. Foot pink and dry with immediate capillary refill, 4t pedal and poterior tibial pulses.Other circulatory disease (8 sources)Other specified symptoms and signs involving the circulatory and respiratory systems; Translations:[OTH SPEC SX SIGNS INVLV CIRC RS]Onset: 97-75-9038QdjguagtItkjp circulatory disease (13 sources)Unequal blood pressure in arms; Translations: [Other specified symptoms and signs involving the circulatory and respiratory systems]Onset: 418814-16-6341QpiadkqfUqvag circulatory disease (11 sources)Carotid bruit; Translations: [Other specified symptoms and signs involving the circulatory and respiratory systems]Onset: 603713-93-7536 EpisodicOther connective tissue disease (20 sources)Impingement syndrome of shoulder region; Translations: [Impingement syndrome of unspecified shoulder]Onset: 855165-33-4281OowcbxviAcfjr ear and sense organ disorders (15 sources)Bilateral tinnitus; Translations: [Tinnitus, bilateral]Onset: 007615-39-9015UhrlmbwoSwdmz fractures (4 sources)Multiple fractures of ribs, right side, initial encounter for closed fracture; Translations: [MX FXRIBS RT SIDE INITIAL CLOS FX]Onset: 05-25-2022 EpisodicOther injuries and conditions due to external causes (3 sources)Unspecified injury of thorax, initial encounter; Translations: [UNSPECIFIED INJURY THORAX INITIAL]Onset: 91-84-1116MtenlxfqPmpxs injuries and conditions due to external causes (10 sources)H/O: fracture; Translations: [Personal history of (healed) traumatic fracture]Onset: 398980-28-9326OrlpxhfeWnkit injuries and conditions due to external causes (2 sources)Personal history of (healed) traumatic fracture; Translations: [Personal history of (healed) traumatic fracture]Onset: 97-64-5058HfwpabzmAhewc lower respiratory disease (20 sources)Dyspnea; Translations: [Shortness of breath]Onset: 05-08-2024 89-84-6015JnhdjpuxIxzft lower respiratory disease (3 sources)Shortness of breath; Translations: [Shortness of breath]Onset: 14-98-1280RtndzzutDbryg nervous system disorders (17 sources)Paresthesia; Translations: [Paresthesia of skin]Onset: 01-12-2023 69-37-4732AgcqvdugEizrp non-traumatic joint disorders (4 sources)Pain in right knee; Translations: [PAIN IN RIGHT KNEE]Onset: 65-95-3490IeiphfjeOoqqg nutritional; endocrine; and metabolic disorders (11 sources)Overweight in adulthood with body mass index of 25 or more but less than 30; Translations: [Body mass index (BMI) 25.0-25.9, adult]Onset: 05-08-2024 77-23-9491RmragunwBbpvi nutritional; endocrine; and metabolic disorders (2 sources)Body mass index (BMI) 26.0-26.9, adult; Translations: [Body mass index (BMI) 26.0-26.9, adult]Onset: 98-47-4719SujbhsbsNrrer nutritional; endocrine; and metabolic disorders (2 sources)Body mass index (BMI) 25.0-25.9, adult; Translations: [Body mass index (BMI) 25.0-25.9, adult]Onset: 93-75-5926JumnguilJebhmqpwx and history of mental health and substance abuse codes (19 sources)Personal history of nicotine dependence; Translations: [Ex-smoker] Onset: 719086-86-9577LvrexsltPseibvzpimg; intervertebral disc disorders; other back problems (20 sources)Chronic low back pain; Translations: [Low back pain, unspecified] Onset: 386143-00-0561RpmdshmeOieikkmiwbbj (3 sources)Low back pain, unspecified M54.50Unclassified (1 source)LOW BACK PAIN, UNSPECIFIED; Translations: [LOW BACK PAIN, UNSPECIFIED] Onset: 72-86-1046Nuztnofjiubf (1 source)COUGH, UNSPECIFIED; Translations: [COUGH, UNSPECIFIED]Onset: 71-85-4280Kjnwizctajmq (9 sources)Onset: 946062-21-4661Rvbsdlz tract infections (4 sources)Urinary tract infection, site not specified; Translations: [UTI SITE NOT SPECIFIED]Onset: 72-70-8883Pqfkbcab Results Test NameValueInterpretationReference RangeFacilityReminderson 03-13-2025 RemindersReminders From: Loretta Simons To: EU - Recalls Whitney; Sent: 03/13/2025 13:55:29 EDT Show up: 05/21/2025 13:55:00 EST Subject: cysto/needs fish/cytol Due Date/Time: 06/18/2025 13:55:00 EST Reminder/Recall Patient is due in August for 3 month cysto/fish/cytol, bt ckNoKeenan Private HospitalRemindersReminders From: Loretta Simons To: EU - Recalls Whitney; Sent: 02/22/2025 11:09:15 EDT Show up: 03/21/2025 11:09:00 EDT Subject: cysto/fish/cytol Due Date/Time: 04/16/2025 11:09:00 EDT Reminder/Recall Patient is due in for 3-4 month cysto/fish/cytol, bt ck Patient sched 05/28/25NormalFishMeritus Medical CenterUroVysion Fish and Urine Cyto ([facility])on 40-86-3706SBNNRJ & UCDiagnosis InfoInvalid Interpretation Code [facility] HospitalComment on above:Result Comment: A:Urine,Bladder Wash:Bladder Wash [...] with cytology and cystoscopy results. * CPT: 63996, 49333. 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 Electronically signed by : on: 03/05/2025 08:20:44Performed By: #### [id number] #### [facility] [address], [place] [address]Rg Panel Informationon 05-93-7966QVKD HealthcareType of biopsy: tangential Informed consent: discussed [...] Photo taken Am[facility] of lidocaine used: 1.0 [facility] HealthcareAmbulatory Visit Summaryon 15-23-0768Kcwpwpswii Visit SummaryAmbulatory Visit Summary MARY DIAZ :1950 [...] ck Where: [address] [place] [address] [place] [address] Medications What How Much When Instructions Unchanged [...] tocreate a cancer (more content not included)...Normal [facility] HospitalAmbulatory Visit SummaryAmbulatory Visit Summary MARY DIAZ [...] ck Where: [address] [place] [address] Medications What How Much When Instructions Unchanged [...] tocreate a cancer (more content not included)...Normal [facility] HospitalUroVysion Fish and Urine Cyto ([facility])on 02-26-2025 [facility] Method of ExtractionBladder [facility] HospitalComment on above:Performed By: #### [id number] #### [facility] [address], [place] [address]NEDS Number of Pfks2Drpfsbm Interpretation [facility] - AkronComment on above:Performed By: #### [id number] #### [facility] [address], [place] [address]TWKH SpecimenBladder [facility] Comment on above:Performed By: #### [id number] #### [facility] [address], [place] [address]ZVOP Type of ServiceTechnical OnlyOhioHealth Doctors HospitalComment on above:Performed By: #### [id number] #### [facility] [address] [place], [place] [address]Blcfhfu Office/Clinic Noteon 62-87-9841Dnfortu Office/Clinic NoteUrology Office/Clinic Note Chief Complaint cystoscopy [...] 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 MEDICAL CARE EVALUATION SPECIALIST present and uninvolved. Mitomycin 03/26/22 and 04/20/22. TURBT 01/14/23 - Neg. Chronic inflammation and extensive necrosis. S/p TURBT 07/06/24 - A small focus of borderline high-grade papillary urothelial carcinoma in at least 1 fragment wo obvious stromal invasion (desk officer). 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 [1] BCG #6 [...] 0.05 09/21/22 - <0.13 09/21/23 - <0.13 ([facility]) 08/16/24 - 0.03 ([facility]) S/p radical prostatectomy 08/2014. [3] 3. History of kidney stones (Z87.442: Personal history of urinary calculi) Has family hx of stones (sister and son). [4] 4. Impotence (N52.31: Erectile dysfunction following radical prostatectomy) Sildenafil 100 mg PRN and 4P injection therapy. [5] Follow-up With When Contact Information DEVONTE NOBLE, Lionel Burgos, URL [address] [place] [address] [place] [address] Additional Instructions: 3 mos for cysto/bt ck [...] polyps Spondylolisthesis of cervi (more content not included)...[facility] Doctors HospitalComment on above:Result Comment: Electronically Signed By: Lionel WHITNEY MD\.br\Date and Time Signed: 02/26/25 08:50 EDT\.br\Electronically Co-Signed By: Lilo Zhoubr\Date and Time Co-Signed: 02/26/25 08:49 EDT Reminderson 23-78-8064WrnmuwfiuQxngwgnvo From: Loretta Simons To: EU - Leandro Whitney; Sent: 09/01/2024 15:18:36 EDT Show up: 02/19/2025 15:18:00 EDT Subject: cysto/fish/cytol Due Date/Time: 03/19/2025 15:18:00 EDT Reminder/Recall Patient is due in Apr 2025 cysto/fish/cytol (6 mo) Patient sched for cysto 02/26/25 in [place] office.LGNormSalem City HospitalUrology Office/Clinic Noteon 66-62-5218Xwdrdaz Office/Clinic NoteUrology Office/Clinic Note Chief Complaint BCG [...] TURBT 02/17/22 - Path was sent to [facility] for second opinion, 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 MEDICAL CARE EVALUATION SPECIALIST present and uninvolved. Mitomycin 03/26/22 and 04/20/22. TURBT 01/14/23 - Neg. Chronic inflammation and extensive necrosis. S/p TURBT 07/06/24 - A small focus of borderline high-grade papillary urothelial carcinoma in at least 1 fragment wo obvious stromal invasion (desk officer). 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 [1] Saw Dr. Norberto Leedy 07/19/24 at [facility], recommended BCG #6 to start 2wks later. BCG #6 complete 09/13/24 [facility]. Neg CT AP/Chest scan 09/01/24 [facility]. Cysto 10/24/24 shows no bladder lesions. Cyto/FISH [...] With When Contact Information [facility] Additional Instructions: For procedure as scheduled. [...] Father. Immunizations Vaccine Da (more content not included)...[facility] Comment on above:Result Comment: Electronically Signed By: LAUREN WOODY PA-C\Date and Time Signed: 01/15/2509:25 EDTReminderson 80-14-2869Ibdenfhcy Reminders From: Loretta Simons To: EU - Recalls Whitney; Sent: 08/17/2024 11:54:59 EST Show up: 11/19/2024 11:54:00 EDT Subject: cysto/fish/cytol Due Date/Time: 12/11/2024 11:54:00 EDT Reminder/Recall Patient is due in January 2025 for 3 month cysto/fish./cytol, bt ck Patient sched 02/26/25 in [place] office.[facility] Doctors HospitalCB W Auto Differential panel (Bld)on 28-95-4680Jaftrzvhy (Bld) [#/Vol]NINFCleveland ClinicBasophils/100 WBC (Bld)0.2 %[facility] Medical CenterDifferential cell count method Nom (Bld)AutoCleveland ClinicEosinophils (Bld) [#/Vol]0.09 10*3/uLNINFCleveland ClinicEosinophils/100 WBC (Bld)1.1 %[facility] Medical CenterErythrocyte distribution width (RBC) [Ratio]14.1 %11.5 - 15.0 %[facility] Medical CenterHematocrit (Bld) [Volume fraction]38 %Low39.0 - 51.0 %[facility] Medical CenterHemoglobin (Bld) [Mass/Vol]12.7 g/dLLow13.0 - 17.0 g/dLChillicothe Va Medical CenterImmature granulocytes (Bld) [#/Vol]0.05 10*3/uLNINFChillicothe Va Medical CenterImmature granulocytes/100 WBC (Bld)0.6 %[facility] CenterInterpretation and review of laboratory resultsAbnoalCOhioHealth Hardin Memorial Hospital Lymphocytes (Bld) [#/Vol]2.14 10*3/uLChillicothe Va Medical CenterLymphocytes/100 WBC (Bld) 25.4 %[facility] Berger HospitalH (RBC) [Entitic mass]30.5 pg26.0 - 34.0 pgCSt. Anthony's HospitalHC (RBC) [Mass/Vol]33.4 g/dL30.5 - 36.0 g/dLOhioHealth Berger HospitalV (RBC) [Entitic vol]91.3 fL80.0 - 100.0 fLCOhioHealth Hardin Memorial HospitalMonocytes (Bld) [#/Vol]0.68 10*3/uLNIMercy Health Urbana HospitalMonocytes/100 WBC (Bld)8.1 %[facility] Neutrophils (Bld) [#/Vol]5.44 10*3/uLChillicothe Va Medical CenterNeutrophils/100 WBC (Bld) 64.6 %[facility] CenterNucleated RBC (Bld) [#/Vol]NINFClevelGreene Memorial HospitalNucleated RBC/100 WBC (Bld) [Ratio]0 %/100 WBCChillicothe Va Medical CenterPlatelet mean volume (Bld) [Entitic vol]9 fL9.0 - 12.7 fLCOhioHealth Hardin Memorial HospitalPlatelets (Bld) [#/Vol]257 10*3/uL [facility] Medical CenterRBC (Bld) [#/Vol]4.16 10*6/uLLow4.20 - 6.00 m/uLChillicothe Va Medical Center WBC (Bld) [#/Vol]8.42 10*3/uLMercy Health Lorain Hospital ClinicBasophils (Bld) [#/Vol]10*3/uLNoal<0.11CLima City Hospital on above:Order Comment: Specimen Type: BLOOD SPECIMENOrdering Facility: [facility] Address:[address] [place], [place] [address]Performed By: #### [id number] ####[facility] LABCLIA [id number] [place], [place] [address]Shzuqicgs/100 WBC (Bld)0.2 %NormalACMC Healthcare System Glenbeigh on above:Order Comment: Specimen Type: BLOOD SPECIMENOrdering Facility: [facility] Address:[address] [place], [place] [address]Performed By: #### [id number] ####[facility] LABCLIA [id number] [place], [place] [address]Mkdvfepeypjb cell count method Nom (Bld)AutoNormalCLima City Hospital on above:Order Comment: Specimen Type: BLOOD SPECIMENOrdering Facility: [facility] Address:[address] [place], [place] [address]Performed By: #### [id number] ####[facility] LABCLIA [id number] [place], [place] [address]Ombnvpbvqcy (Bld) [#/Vol]0.09 10*3/uLNormal<0.46AC[facility] on above:Order Comment: Specimen Type: BLOOD SPECIMENOrdering Facility: [facility] Address:[address] [place], [place] [address]Performed By: #### [id number] ####[facility] LABCLIA [id number] [place], [place] [address]Lmmceknzxnb/100 WBC (Bld)1.1 %NormalACMC Healthcare System Glenbeigh on above:Order Comment: Specimen Type: BLOOD SPECIMENOrdering Facility: [facility] Address:[address] [place], [place] [address]Performed By: #### [id number] ####[facility] LABCLIA [id number] [place], [place] [address]Yhyfsayapvn distribution width (RBC) [Ratio]14.1 %Normal 11.5-15.0[facility] on above:Order Comment: Specimen Type: BLOOD SPECIMENOrdering Facility: [facility] Address:[address] [place], [place] [address]Performed By: #### [id number] ####[facility] LABIA [id number] [place] [address] Hematocrit (Bld) [Volume fraction]38.0 %Low39.0-51.0[facility] Comment on above:Order Comment: Specimen Type: BLOOD SPECIMENOrdering Facility: [facility] Address:[address] [place] [address] Performed By: #### [id number] ####[facility] LABIA [id number] [place], [place] [address]Wygtrgwvhk (Bld) [Mass/Vol]12.7 g/dLLow13.0-17.0[facility] on above:Order Comment: Specimen Type: BLOOD SPECIMENOrdering Facility: [facility] Address:[address] [place], [place] [address]Performed By: #### [id number] ####[facility] LABIA [id number] [place], [place] [address]Tywjlakt granulocytes (Bld) [#/Vol]0.05 10*3/uLNormal <0.10[facility] on above:Order Comment: Specimen Type: BLOOD SPECIMENOrdering Facility: [facility] Address:[address] [place], [place] [address]Performed By: #### [id number] ####[facility] LABIA [id number] [place], [place] [address]Ovpfgpeg granulocytes/100 WBC (Bld)0.6 %NormalACMC Healthcare System Glenbeigh on above: Order Comment: Specimen Type: BLOOD SPECIMENOrdering Facility: [facility] Address:[address] [place], [place] [address]Performed By: #### 35955- 8 ####[facility] LABCLIA [id number] [place], [place] [address]Beatlsytbml (Bld) [#/Vol]2.14 10*3/uLNormal1.00-4.00 [facility] on above:Order Comment: Specimen Type: BLOOD SPECIMENOrdering Facility: [facility] Address:[address] [place], [place] [address]Performed By: #### 37897-4 ####[facility] LABCLIA [id number] [place], [place] [address]Lueqdosvdya/100 WBC (Bld)25.4 %NormalACMC Healthcare System Glenbeigh on above:Order Comment: Specimen Type: BLOOD SPECIMENOrdering Facility: [facility] Address:[address] [place], [place] [address]Performed By: #### 12259-5 ####[facility] LABCLIA [id number] [place], [place] [address]NMM (RBC) [Entitic mass]30.5 oySwsbzc83.0-34.0[facility] on above:Order Comment: Specimen Type: BLOOD SPECIMENOrdering Facility: [facility] Address:[address] [place], [place] [address]Performed By: #### 03118-0 ####[facility] LABCLIA [id number] [place], [place] [address]TLSD (RBC) [Mass/Vol]33.4 g/jZYmqgzj86.5-36.0[facility] on above: Order Comment: Specimen Type: BLOOD SPECIMENOrdering Facility: [facility] Address:[address] [place], [place] [address]Performed By: #### 88808- 8 ####[facility] LABCLIA [id number] [place], [place] [address]POR (RBC) [Entitic vol]91.3 vZZmygtx57.0-100.0[facility] on above:Order Comment: Specimen Type: BLOOD SPECIMENOrdering Facility: [facility] Address:[address] [place], [place] [address]Performed By: #### 91099-9 ####[facility] LABCLIA [id number] [place], [place] [address]Cvailnuet (Bld) [#/Vol]0.68 10*3/uLNormal<0.87[facility] on above:Order Comment: Specimen Type: BLOOD SPECIMENOrdering Facility: [facility] Address:[address] [place], [place] [address]Performed By: #### 17871- 8 ####[facility] LABCLIA [id number] [place], [place] [address]Wjahlfgla/100 WBC (Bld)8.1 %NormalACMC Healthcare System Glenbeigh on above:Order Comment: Specimen Type: BLOOD SPECIMENOrdering Facility: [facility] Address:[address] [place], [place] [address]Performed By: #### 30123-1 ####[facility] LABIA [id number] [place], [place] [address]Jrddfntcgxx (Bld) [#/Vol]5.44 10*3/uLNormal1.45-7.50[facility] on above:Order Comment: Specimen Type: BLOOD SPECIMENOrdering Facility: [facility] Address:[address] [place], [place] [address]Performed By: #### 68706-0 ####[facility] LABCLIA [id number] [place], [place] [address]Alnkxxxngfu/100 WBC (Bld)64.6 %NormalACMC Healthcare System Glen[facility] on above:Order Comment: Specimen Type: BLOOD SPECIMENOrdering Facility: [facility] Address:[address] [place], [place] [address]Performed By: #### 29814-2 ####[facility] LABIA [id number] [place], [place] [address]Otrjwiclx RBC (Bld) [#/Vol] 10*3/uLNormal<0.01[facility] on above:Order Comment: Specimen Type: BLOOD SPECIMENOrdering Facility: [facility] Address:[address] [place], [place] [address]Performed By: #### 56133-1 ####[facility] LABIA [id number] [place], [place] [address]Xxtuhrwfg RBC/100 WBC (Bld) [Ratio]0.0 /100 WBCNormal [facility] on above:Order Comment: Specimen Type: BLOOD SPECIMENOrdering Facility: [facility] Address:[address] [place], [place] [address]Performed By: #### 52883-1 ####[facility] LABCLIA [id number] [place], [place] [address]Etwkmden mean volume (Bld) [Entitic vol]9.0 fLNormal9.0-12.7[facility] on above:Order Comment: Specimen Type: BLOOD SPECIMENOrdering Facility: [facility] Address:[address] [place] [address] Performed By: #### 55471-4 ####[facility] LABCLIA [id number] [place], [place] [address]Wrazungor (Bld) [#/Vol]257 10*3/kGZudwyt739-089DtllnkufgACMC Healthcare System Glenbeigh on above:Order Comment: Specimen Type: BLOOD SPECIMENOrdering Facility: [facility] Address:[address] [place], [place] [address]Performed By: #### 88862-9 ####[facility] LABCLIA [id number] [place], [place] [address]DWG (Bld) [#/Vol]4.16 10*6/uLLow4.20-6.00[facility] on above:Order Comment: Specimen Type: BLOOD SPECIMENOrdering Facility: [facility] Address:[address] [place], [place] [address]Performed By: #### 15575-7 ####[facility] LABCLIA [id number] [place], [place] [address]BNK (Bld) [#/Vol]8.42 10*3/uL Normal3.70-11.00[facility] on above:Order Comment: Specimen Type: BLOOD SPECIMENOrdering Facility: [facility] Address:[address] [place], [place] [address]Performed By: #### 87569-0 ####[facility] LABIA [id number] [place], [place] [address]ZMYEGPat 14-54-6774GTYGDBPqcmd (SP) Office ([place]) MARY DIAZ ([id number]) 1950 [facility] Date Time Provider Department 12/13/24 1:00 PM NORBERTO ANDRADE HEMFELICIANO During your visit today, we recorded the following information about you: Temperature Pulse Respiration Blood pressure 97.7 degrees 74/minute 18/minute 135/80 Weight 84.4 kg Norberto Andrade MD 12/13/2024 2:20 PM Signed PATIENT NAME: Mary Diaz [facility] NO.: [id number] ATTENDING PHYSICIAN: Norberto Andrade MD DATE OF SERVICE: 12/13/[address] Lionel Whitney [address] [facility] [address] thank you for referring Mary Diaz for [...] atleast 1 fragment without obvious stromal invasion (desk officer). 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 Urology recommended induction [...] tablet by mouth at bedtime as needed. pyhtejctonj-geqfdptns-zkixpdpa (TRELEGY ELLIPTA) 100-62.5-25 mcg inhalation powder = [...] Take 100 mg by mouth as needed. yhmbpfqjivs-vgpqypkhu-chfvhpuo (TRELEGY ELLIPTA) 100-62.5-25 mcg inhalation powder Inhale [...] SURGICAL HISTORY OF Cystourethrosco (more content not included)...NormalRegency Hospital Cleveland East metabolic 2000 panelOrdered By: Jules Almaraz on 03-00-5542Wqcpvlu [Mass/Vol]4.5 g/dL3.9 - 4.9 g/dLHammond ClinicALP [Catalytic activity/Vol]56 U/L38 - 113 U/LCleveland ClinicALT [Catalytic activity/Vol]16 U/L10 - 54 U/L Hammond ClinicAnion gap [Moles/Vol]10 mmol/L8 - 15 mmol/LCleveland ClinicAST [Catalytic activity/Vol]16 U/L14 - 40 U/LCleveland ClinicBilirubin [Mass/Vol]0.4 mg/dL0.2 - 1.3 mg/dLHammond ClinicCalcium [Mass/Vol]10.2 mg/dL8.5 - 10.2 mg/dLHammond ClinicChloride [Moles/Vol]97 mmol/LLow98 - 107 mmol/LCleveland ClinicCO2 [Moles/Vol]26 mmol/L22 - 30 mmol/LCleveland ClinicCreatinine [Mass/Vol]1.27 mg/dLHigh0.73 - 1.22 mg/dLHammond ClinicGFR/1.73 sq M.predicted among non-blacks MDRD (S/P/Bld) [Vol rate/Area]60 mL/min/{1.73_m2}- PINF [facility] on above:Estimated Glomerular Filtration Rate (eGFR) is [...] reflect actual GFR.Glucose [Mass/Vol]93 mg/dL74 - 99 mg/dLLake County Memorial Hospital - West on above:The [place] Diabetes Association (ADA) provides guidance for cutoff [...] Standards of Medical Care in Diabetes 2016, [place] Diabetes Association. Diabetes Care. 2016.39(Suppl 1). Interpretation and review of laboratory resultsAbnormalCleveland ClinicPotassium [Moles/Vol]4 mmol/L3.7 - 5.1 mmol/LCcleveland clinic akron general ClinicProtein [Mass/Vol]7 g/dL6.3 - 8.0 g/dLHammond ClinicSodium [Moles/Vol]133 mmol/GUwj111 - 144 mmol/L [facility] Medical CenterUrea nitrogen [Mass/Vol]16 mg/dL9 - 24 mg/dLPromedica Flower HospitalComprehensive metabolic 2000 panelon 31-76-5724Ijhytyk [Mass/Vol]4.5 g/dLNormal3.9-4.9CL[facility] on above:Order Comment: Specimen Type: BLOOD SPECIMENOrdering Facility: [facility] Address:[address] [place], [place] [address]Performed By: #### 15308- 8 ####[facility] LABCLIA [id number] [place], [place] [address]TMP [Catalytic activity/Vol]56 U/USqanfc28-646KznitypnyACMC Healthcare System Glenbeigh on above:Order Comment: Specimen Type: BLOOD SPECIMENOrdering Facility: [facility] Address:[address] [place], [place] [address]Performed By: #### 75760-1 ####[facility] LABCLIA [id number] [place], [place] [address]UFZ [Catalytic activity/Vol]16 U/QYxmvsv36-86EroprxbjvACMC Healthcare System Glenbeigh on above:Order Comment: Specimen Type: BLOOD SPECIMENOrdering Facility: [facility] Address:[address] [place], [place] [address]Performed By: #### 57114- 8 ####[facility] LABCLIA [id number] [place], [place] [address]Fgdjv gap [Moles/Vol]10 mmol/LNormal8-15[facility] on above:Order Comment: Specimen Type: BLOOD SPECIMENOrdering Facility: [facility] Address:[address] [place], [place] [address]Performed By: #### 87386-0 ####[facility] LABCLIA [id number] [facility]NT[facility]IOJUDITHBULLHEAD COMMUNITY HOSPITALRALPHMOBEETIE, [place] [address]OLZ [Catalytic activity/Vol]16 U/UKeyweu54-65ZxlmbpjvuACMC Healthcare System Glen[facility] on above:Order Comment: Specimen Type: BLOOD SPECIMENOrdering Facility: [facility] Address:[address] [place], [place] [address]Performed By: #### 67423-3 ####[facility] LABCLIA [id number] [place] [address] Bilirubin [Mass/Vol]0.4 mg/dLNormal0.2-1.3CL[facility] on above:Order Comment: Specimen Type: BLOOD SPECIMENOrdering Facility: [facility] Address:[address] [place], [place] [address]Performed By: #### 81102-6 ####[facility] LABCLIA [id number] [place], [place] [address]Miidatm [Mass/Vol]10.2 mg/dLNormal8.5-10.2CLima [facility] on above:Order Comment: Specimen Type: BLOOD SPECIMENOrdering Facility: [facility] Address:[address] [place], [place] [address]Performed By: #### 06598-8 ####[facility] LABCLIA [id number] [place], [place] [address]Yhmpzgem [Moles/Vol]97 mmol/EOqh49-977SpturvqvuACMC Healthcare System Glen[facility]igh on above:Order Comment: Specimen Type: BLOOD SPECIMENOrdering Facility: [facility] Address:[address] [place], [place] [address]Performed By: #### 17339- 8 ####[facility] LABCLIA [id number] [place], [place] [address]BX6 [Moles/Vol]26 mmol/BAjdhkk55-93VuanqnqwcACMC Healthcare System Glen[facility] on above:Order Comment: Specimen Type: BLOOD SPECIMENOrdering Facility: [facility] Address:[address] [place], [place] [address]Performed By: #### 28689-7 ####[facility] LABCLIA [id number] [place], [place] [address]Qaxmtgnigt [Mass/Vol]1.27 mg/dL High0.73-1.22[facility] on above:Order Comment: Specimen Type: BLOOD SPECIMENOrdering Facility: [facility] Address:[address] [place], [place] [address]Performed By: #### 51088-9 ####[facility] LABCLIA [id number] [place] [address] Creatinine and Glomerular filtration rate.predicted panel (S/P/Bld)60 mL/min/1.73m???Normal>=60[facility] on above:Order Comment: Specimen Type: BLOOD SPECIMENOrdering Facility: [facility] Address:[address] [place], [place] [address]Result Comment: Estimated Glomerular Filtration Rate (eGFR) is [...] not accurately reflect actual GFR.Performed By: #### 62296-5 ####[facility] LABCLIA [id number] [place], [place] [address]Yktomdt [Mass/Vol]93 mg/hDMucobu24-68OwgwrdgpkACMC Healthcare System Glen[facility] on above:Order Comment: Specimen Type: BLOOD SPECIMENOrdering Facility: [facility] Address:[address] [place], [place] [address]Result Comment: The [place] Diabetes Association (ADA) provides guidance for cutoff [...] Standards of Medical Care in Diabetes 2016, [place] Diabetes Association. Diabetes Care. 2016.39(Suppl 1).Performed By: #### 67076-4 ####[facility] LABCLIA [id number] [place], [place] [address]Lsapvangb [Moles/Vol]4.0 mmol/LNormal3.7-5.1CLima [facility] Hospital on above:Order Comment: Specimen Type: BLOOD SPECIMENOrdering Facility: [facility] Address:[address] [place], [place] [address]Performed By: #### 83095-2 ####[facility] LABCLIA [id number] [place], [place] [address]Waqxerj [Mass/Vol]7.0 g/dLNormal6.3-8.0[facility] on above:Order Comment: Specimen Type: BLOOD SPECIMENOrdering Facility: [facility] Address:[address] [place], [place] [address]Performed By: #### 80863- 8 ####[facility] LABCLIA [id number] [place], [place] [address]Urmxbz [Moles/Vol]133 mmol/WVdv674-698NpdgycnnwACMC Healthcare System Glen[facility] on above:Order Comment: Specimen Type: BLOOD SPECIMENOrdering Facility: [facility] Address:[address] [place], [place] [address]Performed By: #### 79889-2 ####[facility] LABCLIA [id number] [place], [place] [address]Stdh nitrogen [Mass/Vol]16 mg/dLNormal9-24[facility] on above:Order Comment: Specimen Type: BLOOD SPECIMENOrdering Facility: [facility] Address:[address] [place], [place] [address]Performed By: #### 13127-2 ####[facility] LABCLIA [id number] [place], [place] [address]Neqxdxrb SerPl-mCncon 66-93-3090Mxipecvm [Mass/Vol]114.0 ng/tRXrxuos77.3-565.7CL[facility] on above:Order Comment: Specimen Type: BLOOD SPECIMENOrdering Facility: [facility] Address:[address] [place], [place] [address]Performed By: #### 64893-2, 9, 2275-09, 2284-01 ####[facility] LABCLIA [id number] [place] [address] [place] OF AMERICAFolate SerPl-mCncon 61-83-8983Tnnojo [Mass/Vol]ng/mLNormal>4.7CL[facility] on above:Order Comment: Specimen Type: BLOOD SPECIMENOrdering Facility: [facility] Address:[address] [place], [place] [address]Result Comment: A result of > 20 ng/mL is not necessarily indicative of a pathologic or treatable condition: it reflects a limitation of the test methodology. Assay reference range: 4.8 to 24.2 ng/mL. Suitable for detection of folate deficiency. Reference: Folate III (Folate III) [package insert V 1.0 Maori]. [facility], [place], [place]: April 2015.Performed By: #### 06973-1, 9, 2275-09, 2284-01 ####[facility] LABCLIA [id number] [place] [address] [place] OF AMERICAIron and Iron binding capacity panelon 92-70-4033Dqwn [Mass/Vol]70 ug/eWFtwdcy80-486JgswdbpczLakehealth Beach[facility] Center Comment on above:Order Comment: Specimen Type: BLOOD SPECIMENOrdering Facility: [facility] Address:[address] [place] [address] Performed By: #### 00853-5, 2132-02, 2275-09, 2284-01 ####[facility] LABCLIA [id number] [place] [address] [place] AMERICAIron binding capacity [Mass/Vol]338 ug/rIEbrcva930-831PkorzokfwACMC Healthcare System [facility] on above:Order Comment: Specimen Type: BLOOD SPECIMENOrdering Facility: [facility] Address:[address] [place], [place] [address]Performed By: #### 47024-5, 2132-02, 2275-09, 2284-01 ####[facility] LABIA [id number] [address] STATES OF AMERICAIron/TIBC [Molar ratio]20.7 % Hybdwl19.0-57.0[facility] on above:Order Comment: Specimen Type: BLOOD SPECIMENOrdering Facility: [facility] Address:[address] [place], [place] [address]Performed By: #### 04003-1, 2132-02, 2275-09, 2284-01 ####[facility] LABIA [id number] [place] [id number] [facility] VALLEY HOSPITALVit B12 SerPl-[facility] 60-89-1932Kxhifjxvv (Vitamin B12) [Mass/Vol]484 pg/qTVzgtcp648-8673NeiginjslLima City Hospital on above:Order Comment: Specimen Type: BLOOD SPECIMENOrdering Facility: [facility] Address:[address] [place], [place] [address]Performed By: #### 07773-6, 2132-02, 2275-09, 2284-01 ####[facility] LABIA [id number] [place] [address] [place] STATES OF AMERICAOffice Visiton 69-17-2891Vhoadf- up [id number] Mary Diaz 1950 M Date Provider Department Center 12/11/2024 ALEXANDREA WAGNER [facility] [place] [facility] Family History Problem Relation Age of Onset Cerebral aneurysm Mother Dementia Father Hypertension Sister Family Status - Relation Status Age at Mother Father Sister Alive Brother Level of Service:19424 [place] OFFICE/OP CONSLTJ NEW/EST PT MOD MDM 40 MINUTESNoal [facility] HospitalAmbulatory Visit Summaryon 12-05-2024 Ambulatory Visit SummaryAmbulatory [...] LAUREN WOODY PA-C Where: [facility] [address] [place] [address]- Wednesday 8:30 AM EDT With: Lionel WHITNEY MD Where: [facility] [address] [place] [address]- You Need to Schedule the Following Appointments Follow Up with LAUREN WOODY PA-C, URL When: In 1 week Where: [address] [place] [address] Medications What How Much When [...] ??? 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 MEDICAL CARE EVALUATION SPECIALIST present and uninvolved. Mitomycin 03/26/22 and 04/20/22. TURBT 01/14/23 - Neg. Chronic inflammation and extensive necrosis. S/p TURBT 07/06/24 - A small focus of borderline high-grade papillary urothelial carcinoma in at least 1 fragment wo obvious stromal invasion (desk officer). 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 [1] Saw Dr. Norberto Leedy 07/19/24 at [facility], recommended BCG #6 to start 2wks later. [...] Urnls Dip Stick Auto w/o Microscopy POC 92770 Orders: BCG, 50 mg, IntraVesical, Once, Stop date 12/05/24 10:26:00 EDT, Routine, Start date 12/05/24 10:26:00 EDT, 12/05/24 10:26:00 EDT Follow-up With When Contact Information AMBREEN HELMS, LAUREN Higginbotham, URL In 1 week [address] [place] [address] Additional Instructions: Patient Education [...] 1-2 times per we (more content not included)...[facility] HospitalComment on above:Result Comment: Electronically Signed By: LAUREN WOODY PA-C\.br\Date and Time Signed: 12/05/2509:33 EDTUrology Office/Clinic Noteon 00-81-9841Nksokkg Office/Clinic NoteUrology Office/Clinic Note Chief Complaint BCG [...] 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 MEDICAL CARE EVALUATION SPECIALIST present and uninvolved. Mitomycin 03/26/22 and 04/20/22. TURBT 01/14/23 - Neg. Chronic inflammation and extensive necrosis. S/p TURBT 07/06/24 - A small focus of borderline high-grade papillary urothelial carcinoma in at least 1 fragment wo obvious stromal invasion (desk officer). 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 [1] Saw Dr. Norberto Leedy 07/19/24 at [facility], recommended BCG #6 to start 2wks later. [...] LAUREN WOODY PA-C, URL In 1 week [address] [place] [address] Additional Instructions: Patient Education [...] Never Smokeless Tobacco Us (more content not included)...[facility] HospitalComment on above:Result Comment: Electronically Signed By: LAUREN [...] LAUREN WOODY PA-C Where: [facility] [address] [place] [address]- Wednesday 10:00 AM EDT With: LAUREN WOODY PA-C Where: [facility] [address] [place] [address]- Wednesday 8:30 AM EDT With: Lionel WHITNEY MD Where: [facility] [address] [place] [address]- Medications What How Much When Instructions Unchanged [...] you for choosing us for your care. [facility] HospitalMR HIP LEFT WO IV CONTRASTon 08-95-9685SG HIP LEFT WO IV CONTRASTEXAMINATION/TECHNIQUE: MR HIP [...] CALL PT TO SCHEDULEMain OR Preoperative Recordon 33-42-7392Clzu OR Preoperative RecordMain OR Preoperative Record Holding Area Document Type FTURO Summary Primary Physician: Lionel WHITNEY MD Finalized Date/Time: 10/31/24 16:29:26 Pt. Name: MARY DIAZ Sue Verma/Sex: 1950 Male Med Rec #: [id number] Physician: Lionel WHITNEY MD Financial #: [id number] Pt. Type: O Room/Bed: / Admit/Disch: 10/24/24 [...] Signed By: PAULINA Rene RN, Ruthann 10/31/24 16:29NormalTwin City Hospital UroVysion Fish and Urine Cyto ([facility])on 40-31-7706EKGNKU & UCDiagnosis Info Invalid Interpretation [facility] AkronComment on above:Result Comment: A:Urine,Urine:Bladder Wash Diagnosis Summary [...] with cytology and cystoscopy results. * CPT: 10564, 14759. Microscopic Notes - Microscopic Notes - Abnormal cells 9p21 deletions: Abnormal cells aneploid events: Total cells analyzed: 132 Hematuria: Gross Description Site ID:A color Yellow fixative Alcohol Received 90 mls of clear yellow fluid with the patient's name and, Urine on the vial. Electronically signed by : on: 10/30/2024 14:51:19Performed By: #### [id number] #### [facility] [address], [place] [address]Mnkt OR Intraoperative Recordon 46-79-2694Njsc OR Intraoperative RecordMain OR Intraoperative Record IntraOp Document Type FTURO Summary Primary Physician: Lionel WHITNEY MD Finalized Date/Time: 10/24/24 10:25:48 Pt. Name: EMILYMARY/Sex: 1950 Male Med Rec #: [id number] Physician: Lionel WHITNEY MD Financial #: [id number] Pt. Type: O Room/Bed: / Admit/Disch: 10/24/24 [...] Nanci Luna Role Performed Surgeon - Primary Engine Maintenance Mechanic - Primary Scrub - Primary Time In [...] Signed By: PAULINA Rene RN, Ruthann 10/24/24 10:25[facility] Operative Reporton 50-04-1232Ajqnsqfun ReportOperative Report Patient: MARY DIAZ Age: 74 [...] then surveillance cystoscopy in 3 to 4 months..[facility] HospitalComment on above:Result Comment: Electronically Signed By: DEVONTE NOBLE, Lionel Ernandez\Date and Time Signed: 10/24/24 10:31 EDTUroVysion Fish and Urine Cyto ([facility])on 21-57-3585LTDB Method of ExtractionBladder WashNoKeenan Private HospitalComment on above:Performed By: #### [id number] #### [facility] [address], [place] [address]ZLNN Number of Ueda4Ydvoywb Interpretation [facility] AkronComment on above:Performed By: #### [id number] #### [facility] [address], [place] [address]BLUL SpecimenUrineOhioHealth Doctors HospitalComment on above:Performed By: #### [id number] #### [facility] [address], [place] [address]HTNF Type of ServiceTechnical OnlyOhioHealth Doctors HospitalComment on above:Performed By: #### [id number] #### [facility] [address], [place] [address]Hupygpdobz Visit Summaryon 63-79-9609Rqaubbsjvn Visit Summary Ambulatory Visit Summary MARY DIAZ [...] Urology [address], [place] [id number] Medications What How Much When Instructions Unchanged [...] the bladder and the uret (more content notincluded)...[facility] Doctors HospitalAmbulatory Visit SummaryAmbulatory Visit Summary MARY DIAZ [...] [facility] [address], [place] [phone] Medications What How Much When Instructions Unchanged [...] the bladder and the uret (more content notincluded)...[facility] Doctors HospitalUrology Office/Clinic Noteon 18-15-6398Gqjlpit Office/Clinic NoteUrology Office/Clinic Note Chief Complaint f/u [...] states that he completed 6 BCG's at [facility] in August. 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 MEDICAL CARE EVALUATION SPECIALIST present and uninvolved. Mitomycin 03/26/22 and 04/20/22. TURBT 01/14/23 - Neg. Chronic inflammation and extensive necrosis. S/p TURBT 07/06/24 - A small focus of borderline high-grade papillary urothelial carcinoma in at least 1 fragment wo obvious stromal invasion (desk officer). 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 [1] Saw Dr. Norberto Andrade 07/19/24 at [facility], recommended BCG #6 to start 2wks later. BCG #6 complete 09/13/24 [facility]. Neg CT AP/Chest scan 09/01/24 F. -Has cysto scheduled 10/24/24 2. History of prostate cancer (Z85.46: Personal history of malignant neoplasm of prostate) PSA: 07/05/20 - 0.05 09/12/21 - 0.05 09/21/22 - <0.13 09/21/23 - <0.13 ([facility]) 08/16/24 - 0.03 ([facility]) S/p radical prostatectomy 08/2014. PSA remains low [...] URL [facility] [address] [place] [phone] Additional Instructions: has cysto in October Patient [...] Oral, BID doxazos (more content not included)...NormalFisher Southeast Fairbanks Medical CenterComment on above:Result Comment: Electronically Signed By: Lionel WHITNEY MD\.br\Date and Time Signed: 10/09/24 11:06 EDT\.br\Electronically Co-Signed By: Lilo Zhou\.br\Date and Time Co-Signed: 10/09/24 11:03 EDTNo Panel Informationon 50-77-5909UahtcbgSUZAN Mehta 10/06/2024 10:34 AM L Inj/Asp: L [...] discussed. Consent was given by the patient. [facility] Heart Perfusion W stress and W radionuclide IV on 48-66-4761Kmybsv Lexiscan Myoview cardiac perfusion imaging stress test. [...] Carlos Bell 09/20/2024 3:47 PM Dictation workstation: [id number] By: Carlos Bell and Giannuzzi Michael STUDY: MYOCARDIAL PERFUSION STRESS TEST WITH EXERCISE CONVERTED TO LEXISCAN Performing facility: [facility] Provider: Cady Espinosa MD, FACC PCP: Dr. Pascual Monterroso Supervising provider: Rolly Michaels MD, FACC INDICATION: Signs/Symptoms:ABN EKG, chest pressure. ,R07.89 Other chest pain,R06.02 Shortness of breath HISTORY: Gender: M; Age: 74 y/o ; Height: HT 182.9 cm cm; Weight: WT 88.633 kg kg. High Cholesterol; HTN; Chest Pain; SOB; Quit smoking 21 years ago. COMPARISON: No comparison. ACCESSION NUMBER(S): [id number] ORDERING CLINICIAN: CADY ESPINOSA TECHNIQUE: ONE DAY [...] Currie MD - 09/20/2024 Interpreted By: Carlos eBll and Giannuzzi Michael STUDY: MYOCARDIAL PERFUSION STRESS TEST WITH EXERCISE CONVERTED TO LEXISCAN Performing facility: [facility] Provider: Cady Espinosa MD, FACC PCP: Dr. Pascual Monterroso Supervising provider: Rolly Michaels MD, [facility] INDICATION: Signs/Symptoms:ABN EKG, chest pressure. ,R07.89 Other chest pain,R06.02 Shortness of breath HISTORY: Gender: M; Age: 74 y/o ; Height: HT 182.9 cm cm; Weight: WT 88.633 kg kg. High Cholesterol; HTN; Chest Pain; SOB; Quit smoking 21 years ago. COMPARISON: No comparison. ACCESSION NUMBER(S): [id number] ORDERING CLINICIAN: CADY ESPINOSA TECHNIQUE: ONE DAY [...] Carlos Bell 09/20/2024 3:47 PM Dictation workstation: [id number] [facility] Work Phone: Radiology Study observation (narrative)[facility] Work Phone: nm Heart Perfusion W stress and W radionuclide IV Ordered By: Carlos Bell on 17-49-0679XwtoemltykSalem City Hospital Work Phone: NUCLEAR STRESS TESTon 97-15-8950ESWDRYN STRESS TEST Interpreted By: Carlos Bell and Giannuzzi Michael STUDY: MYOCARDIAL PERFUSION STRESS TEST WITH EXERCISE CONVERTED TO LEXISCAN Performing facility: [facility] Provider: Cady Espinosa MD, FACC PCP: Dr. Pascual Monterroso Supervising provider: Rolly Michaels MD, FACC INDICATION: Signs/Symptoms:ABN EKG, chest pressure. ,R07.89 Other chest pain,R06.02 Shortness of breath HISTORY: Gender: M; Age: 74 y/o ; Height: HT 182.9 cm cm; Weight: WT 88.633 kg kg. High Cholesterol; HTN; Chest Pain; SOB; Quit smoking 21 years ago. COMPARISON: No comparison. ACCESSION NUMBER(S): [id number] ORDERING CLINICIAN: CADY ESPINOSA TECHNIQUE: ONE DAY [...] Carlos Bell 09/20/2024 3:47 PM Dictation workstation: [id number] Health CBC W Auto Differential panel (Bld)on 69-61-8400Jnioalbks (Bld) [#/Vol]0.03 10*3/uLNINFChillicothe Va Medical CenterBasophils/100 WBC (Bld)0.4 %[facility] Differential cell count method Nom (Bld)AutoCleveland ClinicEosinophils (Bld) [#/Vol]0.13 10*3/uLNINFChillicothe Va Medical CenterEosinophils/100 WBC (Bld)1.6 %[facility] Va Medical CenterErythrocyte distribution width (RBC) [Ratio]13.2 %11.5 - 15.0 %[facility] Va Medical CenterHematocrit (Bld) [Volume fraction]37.8 %Low39.0 - 51.0 %[facility] Hemoglobin (Bld) [Mass/Vol]12.4 g/dLLow13.0 - 17.0 g/dLChillicothe Va Medical CenterImmature granulocytes (Bld) [#/Vol]0.03 10*3/uLNINFChillicothe Va Medical CenterImmature granulocytes/100 WBC (Bld)0.4 %[facility] Medical CenterInterpretation and review of laboratory resultsAbnormalCleveland ClinicLymphocytes (Bld) [#/Vol]1.84 10*3/uL [facility] Va Medical CenterLymphocytes/100 WBC (Bld)22.3 %[facility] Berger HospitalH (RBC) [Entitic mass]30.6 pg26.0 - 34.0 pgClevelChildren's MinnesotaHC (RBC) [Mass/Vol]32.8 g/dL30.5 - 36.0 g/dLOhioHealth Berger HospitalV (RBC) [Entitic vol]93.3 fL80.0 - 100.0 fLCOhioHealth Hardin Memorial HospitalMonocytes (Bld) [#/Vol]0.72 10*3/uLNINFChillicothe Va Medical Center Monocytes/100 WBC (Bld)8.7 %[facility] Va Medical CenterNeutrophils (Bld) [#/Vol]5.51 10*3/uLChillicothe Va Medical CenterNeutrophils/100 WBC (Bld)66.6 %[facility] Va Medical CenterNucleated RBC (Bld) [#/Vol]NINFCleveland ClinicNucleated RBC/100 WBC (Bld) [Ratio]0 %/100 WBCChillicothe Va Medical CenterPlatelet mean volume (Bld) [Entitic vol]9.6 fL9.0 - 12.7 fL [facility] Va Medical CenterPlatelets (Bld) [#/Vol]267 10*3/uLHammond ClinicRBC (Bld) [#/Vol]4.05 10*6/uLLow4.20 - 6.00 m/uLCleveland ClinicWBC (Bld) [#/Vol]8.26 10*3/[facility]red Hospital LimaBasophils (Bld) [#/Vol]0.03 10*3/uLNormal <0.11CLima City Hospital on above:Order Comment: Specimen Type: BLOOD SPECIMENOrdering Facility: [facility] Address:[address] [place], [place] [address]Performed By: #### 18853-5 ####[facility] LABCLIA [id number] [place] [address] Basophils/100 WBC (Bld)0.4 %[facility] on above: Order Comment: Specimen Type: BLOOD SPECIMENOrdering Facility: [facility] Address:[address] [place], [place] [address]Performed By: #### 24209- 8 ####[facility] LABCLIA [id number] [place], [place] [address]Ympthkkfdgcg cell count method Nom (Bld)AutoNormal [facility] on above:Order Comment: Specimen Type: BLOOD SPECIMENOrdering Facility: [facility] Address:[address] [place], [place] [address]Performed By: #### 34852-3 ####[facility] LABCLIA [id number] [place], [place] [address]Lgpgnuunocx (Bld) [#/Vol]0.13 10*3/uLNormal<0.46[facility] on above: Order Comment: Specimen Type: BLOOD SPECIMENOrdering Facility: [facility] Address:[address] [place], [place] [address]Performed By: #### 59007- 8 ####[facility] LABCLIA [id number] [place], [place] [address]Kxpextozmoe/100 WBC (Bld)1.6 %NormalACMC Healthcare System Glenbeigh on above:Order Comment: Specimen Type: BLOOD SPECIMENOrdering Facility: [facility] Address:[address] [place], [place] [address]Performed By: #### 45524-1 ####[facility] LABIA [id number] [place], [place] [address]Hziscirqvhs distribution width (RBC) [Ratio]13.2 %Ecbrtm46.5-15.0[facility] on above: Order Comment: Specimen Type: BLOOD SPECIMENOrdering Facility: [facility] Address:[address] [place], [place] [address]Performed By: #### 70923- 8 ####[facility] LABIA [id number] [place], [place] [address]Gnazzgludd (Bld) [Volume fraction]37.8 %Low39.0-51.0 [facility] on above:Order Comment: Specimen Type: BLOOD SPECIMENOrdering Facility: [facility] Address:[address] [place], [place] [address]Performed By: #### 12823-3 ####[facility] LABIA [id number] [place], [place] [address]Xilaehibet (Bld) [Mass/Vol]12.4 g/dLLow13.0-17.0[facility] on above:Order Comment: Specimen Type: BLOOD SPECIMENOrdering Facility: [facility] Address:[address] [place], [place] [address]Performed By: #### 54341- 8 ####[facility] LABIA [id number] [place], [place] [address]Vfmffzod granulocytes (Bld) [#/Vol]0.03 10*3/uLNormal <0.10[facility] on above:Order Comment: Specimen Type: BLOOD SPECIMENOrdering Facility: [facility] Address:[address] [place], [place] [address]Performed By: #### 27522-5 ####[facility] LABCLIA [id number] [place], [place] [address]Jfncdube granulocytes/100 WBC (Bld)0.4 %NormalACMC Healthcare System [facility] on above: Order Comment: Specimen Type: BLOOD SPECIMENOrdering Facility: [facility] Address:[address] [place], [place] [address]Performed By: #### 50217- 8 ####[facility] LABCLIA [id number] [place], [place] [address]Ovxivxsfrsy (Bld) [#/Vol]1.84 10*3/uLNormal1.00-4.00 [facility] on above:Order Comment: Specimen Type: BLOOD SPECIMENOrdering Facility: [facility] Address:[address] [place], [place] [address]Performed By: #### 71738-6 ####[facility] LABIA [id number] [place], [place] [address]Qrltjzwucxi/100 WBC (Bld)22.3 %NormalACMC Healthcare System Glen[facility] on above:Order Comment: Specimen Type: BLOOD SPECIMENOrdering Facility: [facility] Address:[address] [place], [place] [address]Performed By: #### 26100-2 ####[facility] LABCLIA [id number] [place], [place] [address]BXV (RBC) [Entitic mass]30.6 ysSmaacf16.0-34.0[facility] on above:Order Comment: Specimen Type: BLOOD SPECIMENOrdering Facility: [facility] Address:[address] [place], [place] [address]Performed By: #### 22214-8 ####[facility] LABIA [id number] [place], [place] [address]ISHS (RBC) [Mass/Vol]32.8 g/vSYfbqju76.5-36.0[facility] on above: Order Comment: Specimen Type: BLOOD SPECIMENOrdering Facility: [facility] Address:[address] [place], [place] [address]Performed By: #### 93630- 8 ####[facility] LABCLIA [id number] [place], [place] [address]SNC (RBC) [Entitic vol]93.3 iIGdwsey22.0-100.0[facility] on above:Order Comment: Specimen Type: BLOOD SPECIMENOrdering Facility: [facility] Address:[address] [place], [place] [address]Performed By: #### 84208-4 ####[facility] LABIA [id number] [place], [place] [address]Hcdbqdlyh (Bld) [#/Vol]0.72 10*3/uLNormal<0.87[facility] on above:Order Comment: Specimen Type: BLOOD SPECIMENOrdering Facility: [facility] Address:[address] [place], [place] [address]Performed By: #### 51817- 8 ####[facility] LABIA [id number] [place], [place] [address]Ibfdjkhma/100 WBC (Bld)8.7 %NormalACMC Healthcare System [facility] on above:Order Comment: Specimen Type: BLOOD SPECIMENOrdering Facility: [facility] Address:[address] [place], [place] [address]Performed By: #### 32856-1 ####[facility] LABCLIA [id number] [place], [place] [address]Satyozcxwsu (Bld) [#/Vol]5.51 10*3/uLNormal1.45-7.50[facility] on above:Order Comment: Specimen Type: BLOOD SPECIMENOrdering Facility: [facility] Address:[address] [place], [place] [address]Performed By: #### 41027-8 ####[facility] LABCLIA [id number] [place], [place] [address]Umpfwrgzall/100 WBC (Bld)66.6 %NormalACMC Healthcare System [facility] on above:Order Comment: Specimen Type: BLOOD SPECIMENOrdering Facility: [facility] Address:[address] [place], [place] [address]Performed By: #### 94664-5 ####[facility] LABCLIA [id number] [place], [place] [address]Eyupncplg RBC (Bld) [#/Vol] 10*3/uLNormal<0.01[facility] on above:Order Comment: Specimen Type: BLOOD SPECIMENOrdering Facility: [facility] Address:[address] [place], [place] [address]Performed By: #### 50465-6 ####[facility] LABIA [id number] [place], [place] [address]Quspodiyx RBC/100 WBC (Bld) [Ratio]0.0 /100 WBCNormal [facility] on above:Order Comment: Specimen Type: BLOOD SPECIMENOrdering Facility: [facility] Address:[address] [place], [place] [address]Performed By: #### 58325-6 ####[facility] LABCLIA [id number] [place], [place] [address]Fzwczsbx mean volume (Bld) [Entitic vol]9.6 fLNormal9.0-12.7CLima City Hospital on above:Order Comment: Specimen Type: BLOOD SPECIMENOrdering Facility: [facility] Address:[address] [place] [address] Performed By: #### 07341-3 ####[facility] LABIA [id number] [place], [place] [address]Yqbpidecy (Bld) [#/Vol]267 10*3/dNXqyuan977-034BlcvxinveACMC [facility] on above:Order Comment: Specimen Type: BLOOD SPECIMENOrdering Facility: [facility] Address:[address] [place], [place] [address]Btklixkha By: #### 21878-0 ####[facility] LABIA [id number] [place], [place] [address]UGU (Bld) [#/Vol]4.05 10*6/uLLow4.20-6.00[facility] on above:Order Comment: Specimen Type: BLOOD SPECIMENOrdering Facility: [facility] Address:[address] [place] [address]Hsnawlmsz By: #### 58066-2 ####[facility] LABIA [id number] [place], [place] [address]HEE (Bl) [#/Vol]8.26 10*3/uL Normal3.70-11.00[facility] on above:Order Comment: Specimen Type: BLOOD SPECIMENOrdering Facility: [facility] Address:[address] [place] [address]Bybjiianl By: #### 53631-4 ####[facility] LABIA [id number] [place], [place] [address]AOZVBMHdw 04-70-8107UXLDIAZSkegt Visit ([place]) MARY DIAZ ([id number]) 1950 M [facility] Date Time Provider Department 09/13/24 2:00 PM BRUNO NURSE ENRIQUE TAY During your visit today, we recorded the following information about you: Suzanna Waters MA 09/13/2024 1:46 PM Signed UA performed as ordered. Suzanna Waters MA Referring Provider: NORBERTO ANDRADE [[id number]] Allergies As of Date: 09/13/2024 Noted Allergy [...] by mouth at bedtime as needed. - ydyrcqmvvmo-rxznsnwmo-tavfdovj (TRELEGY ELLIPTA) 100-62.5-25 mcg inhalation powder = [...] 100 mg by mouth as needed. - zsaiklxjdzr-evvblpzui-mfuoocqc (TRELEGY ELLIPTA) 100-62.5-25 mcg inhalation powder Inhale [...] 07/26/2024 Encounter Status:Closed by SUZANNA WATERS on 09/13/24[facility] SpringfieldCNOVSPon [id number] (SP) Office ([place]) MARY DIAZ ([id number]) 1950 [facility] Date Time Provider Department 09/13/24 1:00 PM NORBERTO ANDRADE During your visit today, we recorded the following information about you: Temperature Pulse Respiration Blood pressure 97.6 degrees 73/minute 18/minute 119/75 Weight 86.6 kg Norberto Andrade MD 09/13/2024 1:18 PM Signed PATIENT NAME: Mary Diaz [facility] NO.: [id number] ATTENDING PHYSICIAN: Norberto Andrade MD DATE OF SERVICE: 09/13/[address] Lionel Whitney [address] [place] [address] thank you for referring Mary Diaz for [...] atleast 1 fragment without obvious stromal invasion (desk officer). 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 Urology recommended induction [...] tablet by mouth at bedtime as needed. arcjebznfhs-dwdspfgcz-effhzztf (TRELEGY ELLIPTA) 100-62.5-25 mcg inhalation powder = [...] Take 100 mg by mouth as needed. ocrwbcmaqyr-promlsaqy-zafewsqx (TRELEGY ELLIPTA) 100-62.5-25 mcg inhalation powder Inhale [...] Hypertension Father Social History (more content not included)...NormalLakehealth Beachwood Medical CenterComprehensive metabolic 2000 panelOrdered By: Violeta Presley on 55-21-1244Pjhikpz [Mass/Vol]4.5 g/dL3.9 - 4.9 g/dLHammond ClinicALP [Catalytic activity/Vol]56 U/L38 - 113 U/L Hammond ClinicALT [Catalytic activity/Vol]19 U/L10 - 54 U/LCleveland Clinic Anion gap [Moles/Vol]11 mmol/L8 - 15 mmol/LCleveland ClinicAST [Catalytic activity/Vol]16 U/L14 - 40 U/LCleveland ClinicBilirubin [Mass/Vol]0.4 mg/dL0.2 - 1.3 mg/dLHammond ClinicCalcium [Mass/Vol]10 mg/dL8.5 - 10.2 mg/dLHammond ClinicChloride [Moles/Vol]103 mmol/L98 - 107 mmol/LCleveland ClinicCO2 [Moles/Vol]24 mmol/L22 - 30 mmol/LCleveland ClinicCreatinine [Mass/Vol]1.34 mg/dLHigh0.73 - 1.22 mg/dLHammond ClinicGFR/1.73 sq M.predicted among non- blacks MDRD [...] reflect actual GFR.Glucose [Mass/Vol]93 mg/dL74 - 99 mg/dLChillicothe Va Medical CenterComment on above:The [place] Diabetes Association (ADA) provides guidance for cutoff [...] Standards of Medical Care in Diabetes 2016, [place] Diabetes Association. Diabetes Care. 2016.39(Suppl 1). Interpretation and review of laboratory resultsAbnormalClevelangel medical center ClinicPotassium [Moles/Vol]4.5 mmol/L3.7 - 5.1 mmol/LCcleveland clinic akron general ClinicProtein [Mass/Vol]6.6 g/dL 6.3 - 8.0 g/dLHocking Valley Community Hospitalodium [Moles/Vol]138 mmol/L136 - 144 mmol/L [facility] Va Medical CenterUrea nitrogen [Mass/Vol]21 mg/dL9 - 24 mg/dLPromedica Flower HospitalComprehensive metabolic 2000 panelon 85-19-0708Opignrc [Mass/Vol]4.5 g/dLNormal3.9-4.9CL[facility] on above:Order Comment: Specimen Type: BLOOD SPECIMENOrdering Facility: [facility] Address:[address] [place], [place] [address]Performed By: #### 66036- 8 ####[facility] LABCLIA [id number] [place], [place] [address]LGH [Catalytic activity/Vol]56 U/VLbzgwc27-412MfepdelssACMC Healthcare System [facility] on above:Order Comment: Specimen Type: BLOOD SPECIMENOrdering Facility: [facility] Address:[address] [place], [place] [address]Performed By: #### 88001-8 ####[facility] LABCLIA [id number] [place], [place] [address]QJE [Catalytic activity/Vol]19 U/TEseena39-02EynehmjtuACMC Healthcare System Glenbeigh on above:Order Comment: Specimen Type: BLOOD SPECIMENOrdering Facility: [facility] Address:[address] [place], [place] [address]Performed By: #### 51856- 8 ####[facility] LABCLIA [id number] [place], [place] [address]Mktye gap [Moles/Vol]11 mmol/LNormal8-15[facility] on above:Order Comment: Specimen Type: BLOOD SPECIMENOrdering Facility: [facility] Address:[address] [place], [place] [address]Performed By: #### 98721-1 ####[facility] LABCLIA [id number] [place], [place] [address]EDW [Catalytic activity/Vol]16 U/SFhzaww78-40XftonitwfACMC Healthcare System Glenbeigh on above:Order Comment: Specimen Type: BLOOD SPECIMENOrdering Facility: [facility] Address:[address] [place], [place] [address]Performed By: #### 88833-9 ####[facility] LABCLIA [id number] [place] [address] Bilirubin [Mass/Vol]0.4 mg/dLNormal0.2-1.3CLima City Hospital on above:Order Comment: Specimen Type: BLOOD SPECIMENOrdering Facility: [facility] Address:[address] [place], [place] [address]Performed By: #### 35762-7 ####[facility] LABCLIA [id number] [place], [place] [address]Dozyzii [Mass/Vol]10.0 mg/dLNormal8.5-10.2CLima City Hospital on above:Order Comment: Specimen Type: BLOOD SPECIMENOrdering Facility: [facility] Address:[address] [place], [place] [address]Performed By: #### 69840-6 ####[facility] LABCLIA [id number] [place], [place] [address]Hzafdeke [Moles/Vol]103 mmol/IOkervd80-676JpggahmlmACMC Healthcare System Glenbeigh on above: Order Comment: Specimen Type: BLOOD SPECIMENOrdering Facility: [facility] Address:[address] [place], [place] [address]Performed By: #### 34105- 8 ####[facility] LABCLIA [id number] [place], [place] [address]FO7 [Moles/Vol]24 mmol/BMotupp94-16ZbilhbitaACMC Healthcare System [facility]igh on above:Order Comment: Specimen Type: BLOOD SPECIMENOrdering Facility: [facility] Address:[address] [place], [place] [address]Performed By: #### 73055-4 ####[facility] LABCLIA [id number] [place], [place] [address]Emianjpjir [Mass/Vol]1.34 mg/dL High0.73-1.22[facility] on above:Order Comment: Specimen Type: BLOOD SPECIMENOrdering Facility: [facility] Address:[address] [place], [place] [address]Performed By: #### 19897-2 ####[facility] LABCLIA [id number] [place] [address] Creatinine and Glomerular filtration rate.predicted panel (S/P/Bld)56 mL/min/1.73m???Low>=60[facility] on above:Order Comment: Specimen Type: BLOOD SPECIMENOrdering Facility: [facility] Address:[address] [place], [place] [address]Result Comment: Estimated Glomerular Filtration Rate (eGFR) is calculated using the 2020 CKD-EPI creatinine equation. This equation utilizes serum creatinine, sex, and age as parameters. The creatinine assay has traceable calibration to isotope dilution-mass spectrometry. Refer to KDIGO guidelines for clinical interpretation. In patients with unstable renal function, e.g. those with acute kidney injury, the eGFR may not accurately reflect actual GFR.Performed By: #### 51311-4 ####[facility] LABCLIA [id number] [place] [address] Glucose [Mass/Vol]93 mg/jACkpkwa05-32MkpscjrgqACMC Healthcare System [facility] on above: Order Comment: Specimen Type: BLOOD SPECIMENOrdering Facility: [facility] Address:[address] [place], [place] [address]Result Comment: The [place] Diabetes Association (ADA) provides guidance for cutoff [...] Standards of Medical Care in Diabetes 2016, [place] Diabetes Association. Diabetes Care. 2016.39(Suppl 1).Performed By: #### 23900-5 ####[facility] LABCLIA [id number] [place], [place] [address]Degltfdvr [Moles/Vol]4.5 mmol/LNormal3.7-5.1CLima [facility] on above:Order Comment: Specimen Type: BLOOD SPECIMENOrdering Facility: [facility] Address:[address] [place], [place] [address]Performed By: #### 94796-5 ####[facility] LABCLIA [id number] [place], [place] [address]Eeajjgw [Mass/Vol]6.6 g/dLNormal6.3-8.0[facility] on above:Order Comment: Specimen Type: BLOOD SPECIMENOrdering Facility: [facility] Address:[address] [place], [place] [address]Performed By: #### 98924- 8 ####[facility] LABCLIA [id number] [place], [place] [address]Lmbdnw [Moles/Vol]138 mmol/RCskgkr761-256YymqpgrzsAC[facility] on above:Order Comment: Specimen Type: BLOOD SPECIMENOrdering Facility: [facility] Address:[address] [address] [place], [place] [address]Performed By: #### 70250-2 ####[facility] LABCLIA [id number] [place], [place] [address]Yysx nitrogen [Mass/Vol]21 mg/dLNormal9-24[facility] on above:Order Comment: Specimen Type: BLOOD SPECIMENOrdering Facility: [facility] Address:[facility] [place] [address]Performed By: #### 95154-0 ####[facility] LABCLIA [id number] [place], [place] [address]NR ABD/PEL W IVCONon 65-52-2483VZ ABD/PEL W IVCON* * *Final Report* * * DATE OF EXAM: Sep 01 2024 3:07PM [facility] 0530 - CT ABD/PEL W IVCON [...] any questions regarding this interpretation, please call [phone]. If you are unable to reach us at the number above, please feel free to contact [facility] eRadiology at [phone]. [id number]_IDCSIACNNormalParma Community General Hospital CHEST W IVCONon 43-11-6911DT CHEST W IVCON* * *Final Report* * * DATE OF EXAM: Sep 01 2024 3:07PM [facility] 0539 - CT CHEST W IVCON [...] any questions regarding this interpretation, please call [phone]. If you are unable to reach us at the number above, please feel free to contact [facility] eRadiology at [phone]. [id number]_IDCSIACNNormalLakehealth Beachwood Medical CenterReminderson 09-01-2024 RemindersReminders From: Loretta Simons To: EU - Recalls Whitney; Sent: 04/13/2024 11:42:40 EDT Show up: 08/19/2024 11:42:00 EST Subject: Cysto/Needs FISH/cytol Due Date/Time: 09/11/2024 11:42:00 EDT Reminder/Recall Patient is due in October 2024 for 6 month cysto/fish/cytol, bt ck Spoke to ptaustyn for 10/24/24 at [facility].[place] [facility] SystemCNNURSE on 56-47-8726HQNGZOLGlptf Visit (HEMASA) MARY DIAZ ([id number]) 1950 M [facility] Date Time Provider Department 08/30/24 2:30 PM BRUNO NURSE ENRIQUE TAY During your visit today, we recorded the following information about you: Suzanna Waters MA 08/30/2024 1:24 PM Signed UA performed as ordered. Suzanna Waters MA Referring Provider: NORBERTO ANDRADE [[id number]] Allergies As of Date: 08/30/2024 Noted Allergy Reaction CODEINE 03/30/2017 2 - Rash Comments: Agitation, Doesn't work Date Reviewed: 08/30/2024 Reviewed by: Alice Pearce, RN - Fully Assessed Primary Visit Diagnosis:UTI symptoms [R39.9] Prescriptions as of 08/30/2024 - HYDROcodone-acetaminophen (NORCO) 5-325 mg per tablet Take 1 tablet by mouth at bedtime as needed. - knymmdnbwuz-lifbqedul-gztuqlih (TRELEGY ELLIPTA) 100-62.5-25 mcg inhalation powder = [...] 100 mg by mouth as needed. - oprnpacxfvl-pzatmvbkg-xotihgjn (TRELEGY ELLIPTA) 100-62.5-25 mcg inhalation powder Inhale [...] 07/26/2024 Encounter Status:Closed by SUZANNA WATERS on 08/30/24[facility] SpringfieldCNCarsonSAINT FRANCIS HOS[facility] – MUSKOGEEon 98-42-1029EYATYRCNzfkf Visit (HEMASA) MARY DIAZ ([id number]) 1950 [facility] Date Time Provider Department 08/23/24 2:00 PM BRUNO NURSE ENRIQUE TAY During your visit today, we recorded the following information about you: Santosh Del Rio MA 08/23/2024 1:29 PM Signed UA performed as ordered. Santosh Del Rio MA Referring Provider: NORBERTO ANDRADE [[id number]] Allergies As of Date: 08/23/2024 Noted Allergy Reaction CODEINE 03/30/2017 2 - Rash Comments: Agitation, Doesn't work Date Reviewed: 08/16/2024 Reviewed by: Gama Be MA - Fully Assessed Primary Visit Diagnosis:High risk medication use [Z79.899] Order(s):UA DIP, URINE (POC) [[id number]] Order #: [id number]. #:[id number] Prescriptions as of 08/23/2024 - HYDROcodone-acetaminophen (NORCO) 5-325 mg per tablet Take 1 tablet by mouth at bedtime as needed. - vnarqsntjoc-dgsjaokiw-frxbnlox (TRELEGY ELLIPTA) 100-62.5-25 mcg inhalation powder = [...] 100 mg by mouth as needed. - fhhxnebupxw-umuxdyoza-cmzvkida (TRELEGY ELLIPTA) 100-62.5-25 mcg inhalation powder Inhale 1 Puff as instructed once daily. Problem List As Of Date 08/23/2024 Noted Resolved Bladder cancer (HCC) [C67.9] 07/26/2024 Encounter Status:Closed by SANTOSH DEL RIO on 08/23/24NormalCcincinnati children's hospital medical centerand Carolinaeast Medical CenterUA DIP, URINE (POC)on 66-77-5967JXMJRICEI UA (POCT)NegativeNegative [facility] CenterCLARITY UA (POCT)ClearChillicothe Va Medical CenterCOLOR UA (POCT)Yellow [facility] CenterGLUCOSE UA (POCT)NegativeNegative mg/dLChillicothe [facility] Hemoglobin Ql (U)ModerateAbnormalNegativeChillicothe Va Medical CenterInterpretation and review of laboratory resultsAbnormalCleveland ClinicKETONE UA (POCT)Negative Negative mg/dLChillicothe Va Medical CenterLEUKOCYTES UA (POCT)SmallAbnormalNegativeChillicothe Va Medical CenterNITRITE UA (POCT)NegativeNegativeChillicothe Va Medical CenterPH UA (POCT)64.5 - 8.0 [facility] CenterProtein Ql (U)NegativeNegative mg/dLHocking Valley Community HospitalPECIFIC GRAVITY UA (POCT)>=1.0301.005 - 1.030[facility] Va Medical CenterUROBILINOGEN UA (POCT)0.2 Normal E.U./dLChillicothe Va Medical CenterLocation:[facility], [address] [place] [address] , [place], [place], [address]ZNNTSDLNGREGENCY HOSPITAL COMPANY POINT OF CAREChillicothe [facility] Reminderson 40-33-2733FtkwhwffkYfoufbovf From: Loretta Simons To: EU - Recalls Whitney; Sent: 07/12/2024 13:52:33 EST Show up: 08/07/2024 13:52:00 EST Subject: cysto after BCG tx Due Date/Time: 08/18/2024 13:52:00 EST Reminder/Recall Patient will need cysto sched 1 month after BCG tx in August 2024 Spoke to Dorota at [facility]. Pt sched for BCG tx 08/02/24- 09/13/24 last tx. Pt will get Cysto in september.LG Spoke to pt sched for 08/24/24 at [facility].LG October 24, 2024 not August.LGNormalSelect Medical [facility] W Auto Differential panel (Bld)on 66-73-7405Xruajltrf (Bld) [#/Vol]0.04 10*3/uLNormal<0.11[facility] on above:Order Comment: Specimen Type: BLOOD SPECIMENOrdering Facility: [facility] Address:[address] [place], [place] [address]Performed By: #### 26645-8 ####[facility] LABCLIA [id number] [place], [place] [address]Olflwsudw/100 WBC (Bld)0.4 %NormalACMC Healthcare System [facility] on above:Order Comment: Specimen Type: BLOOD SPECIMENOrdering Facility: [facility] Address:[address] [place], [place] [address]Performed By: #### 76895-4 ####[facility] LABCLIA [id number] [place], [place] [address]Cwrtxcsrvsjm cell count method Nom (Bld)AutoNormal [facility] on above:Order Comment: Specimen Type: BLOOD SPECIMENOrdering Facility: [facility] Address:[address] [place], [place] [address]Performed By: #### 02843-3 ####[facility] LABIA [id number] [place], [place] [address]Jlqjstcyyij (Bld) [#/Vol]0.10 10*3/uLNormal<0.46[facility] on above: Order Comment: Specimen Type: BLOOD SPECIMENOrdering Facility: [facility] Address:[address] [place], [place] [address]Performed By: #### 94576- 8 ####[facility] LABCLIA [id number] [place], [place] [address]Rmqalcahety/100 WBC (Bld)0.9 %NormalACMC Healthcare System [facility] on above:Order Comment: Specimen Type: BLOOD SPECIMENOrdering Facility: [facility] Address:[address] [place], [place] [address]Performed By: #### 09563-8 ####[facility] LABCLIA [id number] [place], [place] [address]Cpdgvlsbitd distribution width (RBC) [Ratio]12.8 %Jvtjlj57.5-15.0[facility] on above: Order Comment: Specimen Type: BLOOD SPECIMENOrdering Facility: [facility] Address:[address] [place], [place] [address]Performed By: #### 54431- 8 ####[facility] LABCLIA [id number] [place], [place] [address]Ylrropyfvw (Bld) [Volume fraction]39.7 %Ddwblk67.0-51.0 [facility] on above:Order Comment: Specimen Type: BLOOD SPECIMENOrdering Facility: [facility] Address:[address] [place], [place] [address]Performed By: #### 23557-2 ####[facility] LABCLIA [id number] [place], [place] [address]Lqbkabafkg (Bld) [Mass/Vol]13.0 g/xJMkygnw78.0-17.0[facility] on above: Order Comment: Specimen Type: BLOOD SPECIMENOrdering Facility: [facility] Address:[address] [place], [place] [address]Performed By: #### 93341- 8 ####[facility] LABCLIA [id number] [place], [place] [address]Fdjuxnlu granulocytes (Bld) [#/Vol]0.12 10*3/uLHigh<0.10 [facility] on above:Order Comment: Specimen Type: BLOOD SPECIMENOrdering Facility: [facility] Address:[address] [place], [place] [address]Performed By: #### 63697-7 ####[facility] LABCLIA [id number] [place], [place] [address]Qzmkmvbr granulocytes/100 WBC (Bld)1.1 %NormalACMC Healthcare System [facility] on above: Order Comment: Specimen Type: BLOOD SPECIMENOrdering Facility: [facility] Address:[address] [place], [place] [address]Performed By: #### 98640- 8 ####[facility] LABIA [id number] [place], [place] [address]Cahctaahpbz (Bld) [#/Vol]1.55 10*3/uLNormal1.00-4.00 [facility] on above:Order Comment: Specimen Type: BLOOD SPECIMENOrdering Facility: [facility] Address:[address] [place], [place] [address]Performed By: #### 13928-3 ####[facility] LABIA [id number] [place], [place] [address]Wuhisheewna/100 WBC (Bld)14.2 %NormalACMC Healthcare System [facility] on above:Order Comment: Specimen Type: BLOOD SPECIMENOrdering Facility: [facility] Address:[address] [place], [place] [address]Performed By: #### 65465-5 ####[facility] LABIA [id number] [place], [place] [address]XJY (RBC) [Entitic mass]30.8 fvNhopyn82.0-34.0[facility] on above:Order Comment: Specimen Type: BLOOD SPECIMENOrdering Facility: [facility] Address:[address] [place], [place] [address]Performed By: #### 36943-4 ####[facility] LABCLIA [id number] [place], [place] [address]TRYY (RBC) [Mass/Vol]32.7 g/kDOfvrpk24.5-36.0[facility] on above: Order Comment: Specimen Type: BLOOD SPECIMENOrdering Facility: [facility] Address:[address] [place], [place] [address]Performed By: #### 40910- 8 ####[facility] LABCLIA [id number] [place], [place] [address]PDW (RBC) [Entitic vol]94.1 yXTftdyv52.0-100.0[facility] on above:Order Comment: Specimen Type: BLOOD SPECIMENOrdering Facility: [facility] Address:[address] [place], [place] [address]Performed By: #### 24715-7 ####[facility] LABIA [id number] [place], [place] [address]Ihkcewuai (Bld) [#/Vol]0.96 10*3/uLHigh<0.87[facility] on above:Order Comment: Specimen Type: BLOOD SPECIMENOrdering Facility: [facility] Address:[address] [place], [place] [address]Performed By: #### 38655- 8 ####[facility] LABCLIA [id number] [place], [place] [address]Dpaslvonv/100 WBC (Bld)8.8 %NormalACMC Healthcare System [facility] on above:Order Comment: Specimen Type: BLOOD SPECIMENOrdering Facility: [facility] Address:[address] [place], [place] [address]Performed By: #### 01648-1 ####[facility] LABCLIA [id number] [place], [place] [address]Isupainlfbm (Bld) [#/Vol]8.15 10*3/uLHigh1.45-7.50[facility] on above:Order Comment: Specimen Type: BLOOD SPECIMENOrdering Facility: [facility] Address:[address] [place], [place] [address]Performed By: #### 94803-2 ####[facility] LABCLIA [id number] [place], [place] [address]Lseadjxudgc/100 WBC (Bld)74.6 %NormalACMC Healthcare [facility] on above:Order Comment: Specimen Type: BLOOD SPECIMENOrdering Facility: [facility] Address:[address] [place], [place] [address]Performed By: #### 59084-9 ####[facility] LABIA [id number] [place], [place] [address]Smdwyuwra RBC (Bld) [#/Vol] 10*3/uLNormal<0.01[facility] on above:Order Comment: Specimen Type: BLOOD SPECIMENOrdering Facility: [facility] Address:[address] [place], [place] [address]Performed By: #### 22998-5 ####[facility] LABCLIA [id number] [place], [place] [address]Fftcqlgax RBC/100 WBC (Bld) [Ratio]0.0 /100 WBCNormal [facility] on above:Order Comment: Specimen Type: BLOOD SPECIMENOrdering Facility: [facility] Address:[address] [place], [place] [address]Performed By: #### 91152-5 ####[facility] LABIA [id number] [place], [place] [address]Llzpiwfd mean volume (Bld) [Entitic vol]9.7 fLNormal9.0-12.7CLima [facility] Hospital on above:Order Comment: Specimen Type: BLOOD SPECIMENOrdering Facility: [facility] Address:[address] [place], [place] [address] Performed By: #### 54063-3 ####[facility] LABCLIA [id number] [place], [place] [address]Knkvhctmo (Bld) [#/Vol]311 10*3/aHMzkyxy253-109DzwkbfwkmACMC [facility] on above:Order Comment: Specimen Type: BLOOD SPECIMENOrdering Facility: [facility] Address:[address] [place], [place] [address]Performed By: #### 79477-2 ####[facility] LABIA [id number] [place], [place] [address]DLL (d) [#/Vol]4.22 10*6/uLNormal4.20-6.00[facility] on above:Order Comment: Specimen Type: BLOOD SPECIMENOrdering Facility: [facility] Address:[address] [place], [place] [address]Performed By: #### 10884-4 ####[facility] LABIA [id number] [place], [place] [address]CWR ([facility]) [#/Vol]10.92 10*3/uLNormal3.70-11.00[facility] on above: Order Comment: Specimen Type: BLOOD SPECIMENOrdering Facility: [facility] Address:[address] [place], [place] [address]Performed By: #### 48175- 8 ####[facility] LABIA [id number] [place], [place] [address]UNGDIMXgy 41-54-4883QAUJUTYZnizy Visit (HEMASA) EMILYMARY ([id number]) 1950 M [facility] Date Time Provider Department 08/16/24 2:15 PM BRUNO NURSE ENRIQUE TAY During your visit today, we recorded the following information about you: Cydney Honeycutt MA 08/16/2024 1:53 PM Signed Back office UA test performed. Results entered in [employer] and doctor notified. Cydney Honeycutt MA Referring Provider: NORBERTO ANDRADE [[id number]] Allergies As of Date: 08/16/2024 Noted Allergy Reaction CODEINE 03/30/2017 2 - Rash Comments: Agitation, Doesn't work Date Reviewed: 08/16/2024 Reviewed by: Gama Be MA - Fully Assessed Primary Visit Diagnosis:High risk medication use [Z79.899] Order(s):UA DIP, URINE (POC) [[id number]] Order #: [id number]. #:[id number] Prescriptions as of 08/16/2024 - HYDROcodone-acetaminophen (NORCO) 5-325 mg per tablet Take 1 tablet by mouth at bedtime as needed. - araxgpnrhzz-opzalrvqm-efazbuwj (TRELEGY ELLIPTA) 100-62.5-25 mcg inhalation powder = [...] 100 mg by mouth as needed. - juxriaasics-qojjcizgc-yebsbwes (TRELEGY ELLIPTA) 100-62.5-25 mcg inhalation powder Inhale [...] [C67.9] 07/26/2024 Encounter Status:Closed by HONEYCUTTSeptember on 08/16/24[facility] SpringfieldCNOVSPon 11-04-7826BZJZCUJivqn (SP) Office (HEMASA) MARY DIAZ ([id number]) 1950 [facility] Date Time Provider Department 08/16/24 1:00 PM NORBERTO ANDRADE During your visit today, we recorded the following information about you: Temperature Pulse Respiration Blood pressure 98.2 degrees 86/minute 16/minute 148/83 Weight 87.5 kg Norberto Andrade MD 08/16/2024 1:29 PM Signed PATIENT NAME: Mary Diaz CLINIC NO.: [id number] ATTENDING PHYSICIAN: Norberto Andrade MD DATE OF SERVICE: 08/16/[address] Lionel Whitney [address] [facility] [address] thank you for referring Mary Diaz for [...] atleast 1 fragment without obvious stromal invasion (desk officer). 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 Urology recommended induction [...] Take 100 mg by mouth as needed. zbmgcnabrbd-kytvasnkn-qnpumgqf (TRELEGY ELLIPTA) 100-62.5-25 mcg inhalation powder Inhale [...] PERFORMANCE STATUS: 0- Fully (more content not included)...NormalLakehealth Beachwood Medical Center Comprehensive metabolic 2000 panelon 11-41-1289Upqjfya [Mass/Vol]4.5 g/dLNormal 3.9-4.9CL[facility] on above:Order Comment: Specimen Type: BLOOD SPECIMENOrdering Facility: [facility] Address:[address] [place], [place] [address]Performed By: #### 81273-3 ####[facility] LABCLIA [id number] [place] [address] [place] AMERICAALP [Catalytic activity/Vol]76 U/FMsefwh98-314UsopobxsjACMC Healthcare System [facility] on above:Order Comment: Specimen Type: BLOOD SPECIMENOrdering Facility: [facility] Address:[address] [place], [place] [address]Performed By: #### 76020-0 ####[facility] LABCLIA [id number] [place] [address] [place] ALT [Catalytic activity/Vol]21 U/VCycibi17-92OkavbetxcACMC Healthcare System [facility] on above:Order Comment: Specimen Type: BLOOD SPECIMENOrdering Facility: [facility] Address:[address] [place] [address] Performed By: #### 11626-8 ####[facility] LABCLIA [id number] [place] [address] [place] Anion gap [Moles/Vol]13 mmol/LNormal8-15[facility] on above:Order Comment: Specimen Type: BLOOD SPECIMENOrdering Facility: [facility] Address:[address] [place], [place] [address]Performed By: #### 91446-9 ####[facility] LABCLIA [id number] [place] [address] [place] AMERICAAST [Catalytic activity/Vol]20 U/YVpgmrk26-60UrntwwcpfACMC Healthcare System [facility] on above:Order Comment: Specimen Type: BLOOD SPECIMENOrdering Facility: [facility] Address:[address] [place], [place] [address]Performed By: #### 15810- 8 ####[facility] LABCLIA [id number] [address] [address] [place] AMERICABilirubin [Mass/Vol]0.3 mg/dL Normal0.2-1.3CLima [facility] Hospital on above:Order Comment: Specimen Type: BLOOD SPECIMENOrdering Facility: [facility] Address:[address] [place], [place] [address]Performed By: #### 36924-1 ####[facility] LABIA [id number] [place] [address] [place] AMERICACalcium [Mass/Vol]9.7 mg/dLNormal8.5-10.2CLima [facility] on above:Order Comment: Specimen Type: BLOOD SPECIMENOrdering Facility: [facility] Address:[address] [place], [place] [address]Performed By: #### 05170-6 ####[facility] LABCLIA [id number] [address] [address] [place] AMERICAChloride [Moles/Vol]102 mmol/NJlhzbq74-975CiremvjbhLakehealth Beachwood Medical Center Comment on above:Order Comment: Specimen Type: BLOOD SPECIMENOrdering Facility: [facility] Address:[address] [place] [address] Performed By: #### 06025-4 ####[facility] LABIA [id number] [address] [address] [place] CO2 [Moles/Vol]24 mmol/SKvkopy76-61VyogtckbaACMC Healthcare System Glen[facility]igh on above: Order Comment: Specimen Type: BLOOD SPECIMENOrdering Facility: [facility] Address:[address] [place], [place] [address]Performed By: #### 00427- 8 ####[facility] LABIA [id number] [facility] [id number] [place] [address] [place] AMERICACreatinine [Mass/Vol]1.45 mg/dL High0.73-1.22[facility] on above:Order Comment: Specimen Type: BLOOD SPECIMENOrdering Facility: [facility] Address:[address] [place], [place] [address]Performed By: #### 81110-2 ####[facility] LABIA [id number] [address] [address] [place] AMERICACreatinine and Glomerular filtration rate.predicted panel (S/P/Bld)51 mL/min/1.73m???Low>=60[facility] on above:Order Comment: Specimen Type: BLOOD SPECIMENOrdering Facility: [facility] Address:[address] [place], [place] [address]Result Comment: Estimated Glomerular Filtration Rate (eGFR) is [...] not accurately reflect actual GFR.Performed By: #### 87612-5 ####[facility] LABIA [id number] [address] [address] [place] AMERICAGlucose [Mass/Vol]84 mg/dLNormal 74-99[facility] on above:Order Comment: Specimen Type: BLOOD SPECIMENOrdering Facility: [facility] Address:[address] [place], [place] [address]Result Comment: The [place] Diabetes Association (ADA) provides guidance for cutoff [...] Standards of Medical Care in Diabetes 2016, [place] [employer] Association. Diabetes Care. 2016.39(Suppl 1).Performed By: #### 11631-4 ####[facility] LABIA [id number] [address] STATES OF [facility] VALLEY HOSPITALPotassium [Moles/Vol]5.2 mmol/L High3.7-5.1CLima City Hospital on above:Order Comment: Specimen Type: BLOOD SPECIMENOrdering Facility: [facility] Address:[address] [place], [place] [address]Performed By: #### 25401-8 ####[facility] [id number] [address] STATES OF AMERICAProtein [Mass/Vol]6.8 g/dLNormal6.3-8.0[facility] on above:Order Comment: Specimen Type: BLOOD SPECIMENOrdering Facility: [facility] Address:[address] [place], [place] [address]Performed By: #### 87322-7 ####[facility] LABIA [id number] [address] [place] Sodium [Moles/Vol]139 mmol/NQuqkqa068-620LhhxnaalrACMC Healthcare System [facility] on above:Order Comment: Specimen Type: BLOOD SPECIMENOrdering Facility: [facility] Address:[address] [place], [place] [address]Performed By: #### 71557-6 ####[facility] LABIA [id number] [address] STATES OF [facility] BLAN[facility] VALLEY HOSPITALUrea nitrogen [Mass/Vol]24 mg/dLNormal9-24[facility] on above:Order Comment: Specimen Type: BLOOD SPECIMENOrdering Facility: [facility] Address:[address] [place], [place] [address]Performed By: #### [id number] ####[facility] [id number] [facility] [id number] [place] [address] [place] [facility] HOSPITALPSA SerPl-mCncon 08-16-2024 Prostate specific Ag [Mass/Vol]0.03 ng/mLNormal<2.60[facility] Comment on above:Order Comment: Specimen Type: BLOOD SPECIMENOrdering Facility: [facility] Address:[address] [place], [place] [address]Result Comment: Total PSA test methodology used is the Electrochemiluminescence Immunoassay by [facility]. Total PSA values by differing methodologies cannot be interchanged.Performed By: #### [id number] ####[facility]IA [id number] [place] [address] [place] DIP, URINE (POC)on 07-31-1520YEMXLBSJL UA (POCT)Negative NegativeChillicothe Va Medical CenterCLARITY UA (POCT)ClearChillicothe Va Medical CenterCOLOR UA (POCT) YellowChillicothe Va Medical CenterGLUCOSE UA (POCT)NegativeNegative mg/dLChillicothe Va Medical Center Hemoglobin Ql (U)NegativeNegativeChillicothe Va Medical CenterInterpretation and review of laboratory resultsAbnormalCleveland ClinicKETONE UA (POCT)NegativeNegative mg/dL [facility] CenterLEUKOCYTES UA (POCT)TraceAbnormalNegativeChillicothe Va Medical CenterNITRITE UA (POCT)NegativeNegativeChillicothe Va Medical CenterPH UA (POCT)5.54.5 - 8.0[facility] CenterProtein Ql (U)NegativeNegative mg/dLHocking Valley Community HospitalPECIFIC GRAVITY UA (POCT)1.021.005 - 1.030[facility] Medical CenterUROBILINOGEN UA (POCT)0.2Normal E.U./dL [facility] CenterLocation:[facility], [address] [place] [address] , [place], [place], [address]RFZMNQDAOREGENCY HOSPITAL COMPANY POINT OF CAREChillicothe Va Medical CenterCNNURSEon 08-09-2024 CNNURSENurse Visit (HEMASA) MARY DIAZ ([id number]) 1950 M [facility] Date Time Provider Department 08/09/24 2:00 PM BRUNO NURSE ENRIQUE TAY During your visit today, we recorded the following information about you: Cydney Honeycutt MA 08/09/2024 1:50 PM Signed Back office UA test performed. Results entered in [employer] and doctor notified. Cydney Honeycutt MA Referring Provider: NORBERTO ANDRADE [[id number]] Allergies As of Date: 08/09/2024 Noted Allergy Reaction CODEINE 03/30/2017 2 - Rash Comments: Agitation, Doesn't work Date Reviewed: 08/02/2024 Reviewed by: Santosh Del Rio MA - Fully Assessed Primary Visit Diagnosis:High risk medication use [Z79.899] Order(s):UA DIP, URINE (POC) [0252659] Order #: [id number]. #:[id number] Prescriptions as of 08/09/2024 - doxazosin (CARDURA) [...] 100 mg by mouth as needed. - cvyixvtkuzs-oojgetuug-dwuaaokj (TRELEGY ELLIPTA) 100-62.5-25 mcg inhalation powder Inhale 1 Puff as instructed once daily. Problem List As Of Date 08/09/2024 Noted Resolved Bladder cancer (HCC) [C67.9] 07/26/2024 Encounter Status:Closed by September on 08/09/24NoalCMercy Health St. Charles HospitalUA DIP, URINE (POC)on 67-23-9978YNITDSNWT UA (POCT)NegativeNegative [facility] CenterCLARITY UA (POCT)ClearChillicothe Va Medical CenterCOLOR UA (POCT)Yellow [facility] CenterGLUCOSE UA (POCT)NegativeNegative mg/dLChillicothe Va Medical Center Hemoglobin Ql (U)NegativeNegativeChillicothe Va Medical CenterInterpretation and review of laboratory resultsAbnormalCleveland ClinicKETONE UA (POCT)NegativeNegative mg/dL [facility] CenterLEUKOCYTES UA (POCT)TraceAbnormalNegativeChillicothe Va Medical CenterNITRITE UA (POCT)NegativeNegativeChillicothe Va Medical CenterPH UA (POCT)5.54.5 - 8.0[facility] CenterProtein Ql (U)NegativeNegative mg/dLHocking Valley Community HospitalPECIFIC GRAVITY UA (POCT)1.0151.005 - 1.030[facility] CenterUROBILINOGEN UA (POCT)0.2Normal E.U./dL [facility] CenterLocation:[facility], [address] [place] [address] , [place], [place], [address]DTMOBWUGVREGENCY HOSPITAL COMPANY POINT OF CAREChillicothe Va Medical CenterCNPNon [id number] Telephone (MAGGI) MARY DIAZ ([id number]) 1950 [facility] Time Provider Department 08/07/24 INGRID UGALDE [...] 100 mg by mouth as needed. - dzjhsmhdcmp-tcqvxiixa-jzlfstcr (TRELEGY ELLIPTA) 100-62.5-25 mcg inhalation powder Inhale 1 Puff as instructed once daily. Problem List As Of Date 08/07/2024 Noted Resolved Bladder cancer (HCC) [C67.9] 07/26/2024 Encounter Status:Closed by INGRID UGALDE on 08/07/24[facility] SpringfieldCNNSaint Louis University Hospital [id number] Visit (HEMASA) MARY DIAZ ([id number]) 1950 [facility] Date Time Provider Department 08/02/24 9:00 AM BRUNO NURSE ENRIQUE TAY During your visit today, we recorded the following information about you: Santosh Del Rio MA 08/02/2024 8:51 AM Signed UA performed as ordered. Santosh Del Rio MA Referring Provider: NORBERTO ANDRADE [[id number]] Allergies As of Date: 08/02/2024 Noted Allergy Reaction CODEINE 03/30/2017 2 - Rash Comments: Agitation, Doesn't work Date Reviewed: 08/02/2024 Reviewed by: Santosh Del Rio MA - Fully Assessed Primary Visit Diagnosis:Malignant neoplasm of urinary bladder, unspecified site (HCC) [C67.9] Order(s):UA DIP, URINE (POC) [[id number]] Order #: [id number]. #:[id number] Prescriptions as of 08/02/2024 - doxazosin (CARDURA) [...] 100 mg by mouth as needed. - ehlrombxpuw-gtzdaegqu-zugasbxq (TRELEGY ELLIPTA) 100-62.5-25 mcg inhalation powder Inhale 1 Puff as instructed once daily. Problem List As Of Date 08/02/2024 Noted Resolved Bladder cancer (HCC) [C67.9] 07/26/2024 Encounter Status:Closed by SANTOSH DEL RIO on 08/02/24[facility] SpringfieldCNOVSPon 61-73-1119KGVMGBUtofr (SP) Office (HEMASA) MARY DIAZ ([id number]) 1950 [facility] Date Time Provider Department 08/02/24 8:30 AM NORBERTO ANDRADE During your visit today, we recorded the following information about you: Temperature Pulse Respiration Blood pressure 97.5 degrees 80/minute 18/minute 131/79 Weight 88.5 kg Norberto Andrade MD 08/02/2024 9:15 AM Signed PATIENT NAME: Mary Diaz CLINIC NO.: [id number] ATTENDING PHYSICIAN: Norberto Andrade MD DATE OF SERVICE: 08/02/[address] Lionel Whitney [address] [facility] [address] thank you for referring Mary Diaz for [...] atleast 1 fragment without obvious stromal invasion (desk officer). 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 Urology recommended induction [...] Take 100 mg by mouth as needed. hmiupzpmuzc-picobxdde-wzodlxrp (TRELEGY ELLIPTA) 100-62.5-25 mcg inhalation powder Inhale [...] or lesions. Eyes: Anic (more content not included)...NormalPromedica Bay Park HospitalvelandUA DIP, URINE (POC)on 39-71-2020VNMGFMFAV UA (POCT)NegativeNegativeChillicothe Va Medical Center CLARITY UA (POCT)ClearChillicothe Va Medical CenterCOLOR UA (POCT)YellowChillic[facility] GLUCOSE UA (POCT)NegativeNegative mg/dLChillicothe Va Medical CenterHemoglobin Ql (U)Small AbnormalNegativeChillicothe Va Medical CenterInterpretation and review of laboratory results AbnormalChillicothe Va Medical CenterKETONE UA (POCT)NegativeNegative mg/dLCh[facility]ic[facility] LEUKOCYTES UA (POCT)SmallAbnormalNegativeChillicothe Va Medical CenterNITRITE UA (POCT) NegativeNegativeChillicothe Va Medical CenterPH UA (POCT)5.54.5 - 8.0[facility] CenterProtein Ql (U)TraceAbnormalNegative mg/dLHocking Valley Community HospitalPECIFIC GRAVITY UA (POCT)1.02 1.005 - 1.030[facility] CenterUROBILINOGEN UA (POCT)0.2Normal E.U./dLChillicothe Va Medical CenterLocation:[facility], [address] , [place], [place], [address]AOADGRONJREGENCY HOSPITAL COMPANY POINT OF CAREChillicothe Va Medical CenterCNPNon [id number] Telephone (STACIE) MARY DIAZ ([id number]) 1950 Sue [facility] Date Time Provider Department 08/01/24 FINANCIAL NAVIGATOR ENRIQUE QUINONES During your visit today, we recorded the following information about you: Esther Patterson 08/01/2024 12:10 PM Signed Spoke with patient over the phone today. Patient is active with [place] [employer], LOC 80%, $0 deductible has $0 remaining, $3500 OOP has $3400 remaining. Estimate shows patient financial responsibility is $134.16 for each treatment in 2024 until oop max is reached. Patient stated understanding. Reference #[id number]. There is currently no Bladder funding available, but will add him to my wait list. My[employer] completed over the phone. He was very appreciative of my phone call. Allergies As of Date: 08/01/2024 Noted Allergy Reaction CODEINE 03/30/2017 2 - Rash Comments: Agitation, Doesn't work Date Reviewed: 07/19/2024 Reviewed by: Suzanna Waters MA - Fully Assessed Reason for Visit: Benefits Investigation [1545] Cmt: Good Day Mary, I am your [...] feel free to stop in or call [phone] for any questions you may have. Prescriptions [...] 100 mg by mouth as needed. - iduefstqaqe-xphooqesb-wfjkufjv (TRELEGY ELLIPTA) 100-62.5-25 mcg inhalation powder Inhale 1 Puff as instructed once daily. Problem List As Of Date 08/01/2024 Noted Resolved Bladder cancer (HCC) [C67.9] 07/26/2024 Encounter Status:Closed by ESTHER PATTERSON on 08/01/24NormalCPremier Health Atrium Medical Center W Auto Differential panel (Bld)on 42-43-5818Xxmhfzpdk (Bld) [#/Vol] 10*3/uLNormal<0.11CLima [facility] on above:Order Comment: Specimen Type: BLOOD SPECIMENOrdering Facility: [facility] Address:[address] [place], [place] [address]Yfmizzmwy By: #### 17910-0 ####[facility] LABCLIA [id number] [place], [place] [address]Ldcyghdvh/100 WBC (Bld)0.3 %NormalACMC Healthcare System Glenbeigh on above:Order Comment: Specimen Type: BLOOD SPECIMENOrdering Facility: [facility] Address:[address] [place], [place] [address]Performed By: #### 99557-4 ####[facility] LABCLIA [id number] [place], [place] [address]Mmnogobxtlur cell count method Nom (Bld)AutoNormalClevelOur Lady of Mercy Hospital on above:Order Comment: Specimen Type: BLOOD SPECIMENOrdering Facility: [facility] Address:[address] [place], [place] [address]Performed By: #### 29258-9 ####[facility] LABIA [id number] [place], [place] [address]Cfcimatsfag (Bld) [#/Vol]0.13 10*3/uLNormal<0.46AC[facility] on above:Order Comment: Specimen Type: BLOOD SPECIMENOrdering Facility: [facility] Address:[address] [place], [place] [address]Performed By: #### 96359-5 ####[facility] LABIA [id number] [place], [place] [address]Vhqrooixdkp/100 WBC (Bld)1.9 %NormalACMC Healthcare System Glenbeigh on above:Order Comment: Specimen Type: BLOOD SPECIMENOrdering Facility: [facility] Address:[address] [place], [place] [address]Performed By: #### 72529-4 ####[facility] LABIA [id number] [place], [place] [address]Lwgmcfwwgrv distribution width (RBC) [Ratio]13.9 %Normal 11.5-15.0[facility] on above:Order Comment: Specimen Type: BLOOD SPECIMENOrdering Facility: [facility] Address:[address] [place], [place] [address]Performed By: #### 49535-1 ####[facility] LABCLIA [id number] [place] [address] Hematocrit (Bld) [Volume fraction]36.5 %Low39.0-51.0[facility] Comment on above:Order Comment: Specimen Type: BLOOD SPECIMENOrdering Facility: [facility] Address:[address] [place] [address] Performed By: #### 73191-2 ####[facility] LABIA [id number] [place], [place] [address]Qfichwwkjw (Bld) [Mass/Vol]12.4 g/dLLow13.0-17.0[facility] on above:Order Comment: Specimen Type: BLOOD SPECIMENOrdering Facility: [facility] Address:[address] [place], [place] [address]Performed By: #### 11985-7 ####[facility] LABIA [id number] [place], [place] [address]Eapjlddv granulocytes (Bld) [#/Vol]0.05 10*3/uLNormal <0.10[facility] Hospitalment on above:Order Comment: Specimen Type: BLOOD SPECIMENOrdering Facility: [facility] Address:[address] [place], [place] [address]Performed By: #### 11565-8 ####[facility] LABIA [id number] [place], [place] [address]Teorckaj granulocytes/100 WBC (Bld)0.7 %NormalACMC Healthcare System Glenbeigh on above: Order Comment: Specimen Type: BLOOD SPECIMENOrdering Facility: [facility] Address:[address] [place], [place] [address]Performed By: #### 74359- 8 ####[facility] LABIA [id number] [place], [place] [address]Bvsxyyfjpmx (Bld) [#/Vol]1.40 10*3/uLNormal1.00-4.00 [facility] on above:Order Comment: Specimen Type: BLOOD SPECIMENOrdering Facility: [facility] Address:[address] [place], [place] [address]Performed By: #### 96585-8 ####[facility] LABCLIA [id number] [place], [place] [address]Rzmtsjpuqtf/100 WBC (Bld)20.7 %NormalACMC Healthcare System Glenbe[facility] on above:Order Comment: Specimen Type: BLOOD SPECIMENOrdering Facility: [facility] Address:[address] [place], [place] [address]Performed By: #### 90407-2 ####[facility] LABCLIA [id number] [place], [place] [address]WXJ (RBC) [Entitic mass]31.2 iiHhykbw37.0-34.0[facility] on above:Order Comment: Specimen Type: BLOOD SPECIMENOrdering Facility: [facility] Address:[address] [place], [place] [address]Performed By: #### 22668-9 ####[facility] LABIA [id number] [place], [place] [address]RXXN (RBC) [Mass/Vol]34.0 g/pLVlqnfh59.5-36.0[facility] on above: Order Comment: Specimen Type: BLOOD SPECIMENOrdering Facility: [facility] Address:[address] [place], [place] [address]Performed By: #### 64670- 8 ####[facility] LABIA [id number] [place], [place] [address]ZKG (RBC) [Entitic vol]91.7 dFGjmhky89.0-100.0[facility] on above:Order Comment: Specimen Type: BLOOD SPECIMENOrdering Facility: [facility] Address:[address] [place], [place] [address]Performed By: #### 90661-1 ####[facility] LABCLIA [id number] [place], [place] [address]Wgjdwaubb (Bld) [#/Vol]0.62 10*3/uLNormal<0.87[facility] on above:Order Comment: Specimen Type: BLOOD SPECIMENOrdering Facility: [facility] Address:[address] [place], [place] [address]Performed By: #### 58273- 8 ####[facility] LABCLIA [id number] [place], [place] [address]Ecjevtqwe/100 WBC (Bld)9.2 %NormalACMC Healthcare System [facility] on above:Order Comment: Specimen Type: BLOOD SPECIMENOrdering Facility: [facility] Address:[address] [place], [place] [address]Performed By: #### 78039-9 ####[facility] LABIA [id number] [place], [place] [address]Rumkqywgodf (Bld) [#/Vol]4.54 10*3/uLNormal1.45-7.50[facility] on above:Order Comment: Specimen Type: BLOOD SPECIMENOrdering Facility: [facility] Address:[address] [place], [place] [address]Performed By: #### 04188-3 ####[facility] LABCLIA [id number] [place], [place] [address]Gvgdqkeldrn/100 WBC (Bld)67.2 %NormalACMC Healthcare System [facility] on above:Order Comment: Specimen Type: BLOOD SPECIMENOrdering Facility: [facility] Address:[address] [place], [place] [address]Performed By: #### 52448-8 ####[facility] LABIA [id number] [place], [place] [address]Oqhltozsx RBC (Bld) [#/Vol] 10*3/uLNormal<0.01[facility] on above:Order Comment: Specimen Type: BLOOD SPECIMENOrdering Facility: [facility] Address:[address] [place], [place] [address]Performed By: #### 65702-2 ####[facility] LABCLIA [id number] [place], [place] [address]Esyhbflhm RBC/100 WBC (Bld) [Ratio]0.0 /100 WBCNormal [facility] on above:Order Comment: Specimen Type: BLOOD SPECIMENOrdering Facility: [facility] Address:[address] [place], [place] [address]Performed By: #### 18774-9 ####[facility] LABCLIA [id number] [place], [place] [address]Mytowwth mean volume (Bld) [Entitic vol]9.4 fLNormal9.0-12.7CLima City Hospital on above:Order Comment: Specimen Type: BLOOD SPECIMENOrdering Facility: [facility] Address:[address] [place] [address] Performed By: #### 79910-0 ####[facility] LABCLIA [id number] [place], [place] [address]Xropnxaok (Bld) [#/Vol]209 10*3/uCKjladg231-661HkwnlpirwACMC [facility] on above:Order Comment: Specimen Type: BLOOD SPECIMENOrdering Facility: [facility] Address:[address] [place], [place] [address]Performed By: #### 57774-6 ####[facility] LABCLIA [id number] [place], [place] [address]VZQ (Bld) [#/Vol]3.98 10*6/uLLow4.20-6.00[facility] on above:Order Comment: Specimen Type: BLOOD SPECIMENOrdering Facility: [facility] Address:[address] [place], [place] [address]Performed By: #### 49216-6 ####[facility] LABCLIA [id number] [place], [place] [address]IZM (Bld) [#/Vol]6.76 10*3/uL Normal3.70-11.00[facility] on above:Order Comment: Specimen Type: BLOOD SPECIMENOrdering Facility: [facility] Address:[address] [place], [place] [address]Performed By: #### 16451-6 ####[facility] LABCLIA [id number] [place], [place] [address]GWPZYQIao 92-23-3305DLMZQSSGoxia Visit (HEMASA) MARY DIAZ ([id number]) 1950 [facility] Date Time Provider Department 07/26/24 11:00 [...] minutes REFERRAL (RECOMMENDATION): N/A Ingrid Ugalde RN General Internal Medicine Physician Pre Chemo Patient identified by name and date of . YES Confirmed date and time for chemotherapy ? YES Other appointments (labs, imaging) discussed? 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 Discussed where to [...] Ingrid Ugalde RN Referring Provider: NORBERTO ANDRADE [[id number]] Allergies As of Date: 07/26/2024 Noted Allergy Reaction CODEINE 03/30/2017 2 - Rash Comments: Agitation, Doesn't work Date Reviewed: 07/19/2024 Reviewed by: Suzanna Waters MA - Fully Assessed Reason for Visit: First Time Treatment Education [3269] Primary Visit Diagnosis:Malignant neoplasm of urinary bladder, unspecified site (HCC) [C67.9] Prescriptions as of 07/26/2024 - methocarbamol 1, (more content not included)...NormalLakehealth Beachwood Medical CenterComprehensive metabolic 2000 panelon 85-21-3526Zkftfye [Mass/Vol]4.2 g/dLNormal3.9-4.9CL[facility] on above:Order Comment: Specimen Type: BLOOD SPECIMENOrdering Facility: [facility] Address:[address] [place], [place] [address]Performed By: #### 40589-5 ####[facility] LABCLIA [id number] [place], [place] [address]HRP [Catalytic activity/Vol]55 U/YMhtgxx95-289LuvhqvsdiACMC Healthcare [facility] on above:Order Comment: Specimen Type: BLOOD SPECIMENOrdering Facility: [facility] Address:[address] [place], [place] [address]Performed By: #### 10289-0 ####[facility] LABCLIA [id number] [place], [place] [address]ACU [Catalytic activity/Vol]17 U/UAvwlef15-23PdwreewgvACMC Healthcare System Glenbeigh on above:Order Comment: Specimen Type: BLOOD SPECIMENOrdering Facility: [facility] Address:[address] [place], [place] [address]Performed By: #### 97200- 8 ####[facility] LABCLIA [id number] [facility] MERAZBULLHEAD [place] [address]Crpsn gap [Moles/Vol]8 mmol/LNormal8-15[facility] on above:Order Comment: Specimen Type: BLOOD SPECIMENOrdering Facility: [facility] Address:[address] [place], [place] [address]Performed By: #### 22699-6 ####[facility] LABCLIA [id number] PAVITHRA ADRIANBULLHEAD COMMUNITY HOSPITALRALPHMOBEETIE, [place] [address]AUD [Catalytic activity/Vol]14 U/DFfbhby10-72AfpwsbaxeACMC Healthcare [facility] on above:Order Comment: Specimen Type: BLOOD SPECIMENOrdering Facility: [facility] Address:[address] [place], [place] [address]Performed By: #### 98508-2 ####[facility] LABCLIA [id number] [facility] HOSPITALBETH ADRIANBULLHEAD COMMUNITY [place] [address] Bilirubin [Mass/Vol]0.5 mg/dLNormal0.2-1.3CL[facility] on above:Order Comment: Specimen Type: BLOOD SPECIMENOrdering Facility: [facility] Address:[address] [place], [place] [address]Performed By: #### 92299-0 ####[facility] LABCLIA [id number] [place] [address]Qmxrubs [Mass/Vol]9.5 mg/dLNormal8.5-10.2CLima [facility] on above:Order Comment: Specimen Type: BLOOD SPECIMENOrdering Facility: [facility] Address:[address] [place], [place] [address]Performed By: #### 23294-8 ####[facility] LABCLIA [id number] [place], [place] [address]Myjjahfc [Moles/Vol]101 mmol/DFooxir34-957ZvuybxeyjACMC Healthcare [facility] on above: Order Comment: Specimen Type: BLOOD SPECIMENOrdering Facility: [facility] Address:[address] [place], [place] [address]Performed By: #### 23275- 8 ####[facility] LABCLIA [id number] [place], [place] [address]LU8 [Moles/Vol]26 mmol/ZLlvlbk96-53BmjbbwvmwACMC Healthcare [facility] on above:Order Comment: Specimen Type: BLOOD SPECIMENOrdering Facility: [facility] Address:[address] [place], [place] [address]Performed By: #### 61926-4 ####[facility] LABCLIA [id number] [place], [place] [address]Pgwdxygnui [Mass/Vol]1.31 mg/dL High0.73-1.22[facility] on above:Order Comment: Specimen Type: BLOOD SPECIMENOrdering Facility: [facility] Address:[address] [place], [place] [address]Performed By: #### 21049-1 ####[facility] LABCLIA [id number] [place] [address] Creatinine and Glomerular filtration rate.predicted panel (S/P/Bld)57 mL/min/1.73m???Low>=60[facility] on above:Order Comment: Specimen Type: BLOOD SPECIMENOrdering Facility: [facility] Address:[address] [place], [place] [address]Result Comment: Estimated Glomerular Filtration Rate (eGFR) is calculated using the 2020 CKD-EPI creatinine equation. This equation utilizes serum creatinine, sex, and age as parameters. The creatinine assay has traceable calibration to isotope dilution-mass spectrometry. Refer to KDIGO guidelines for clinical interpretation. In patients with unstable renal function, e.g. those with acute kidney injury, the eGFR may not accurately reflect actual GFR.Performed By: #### 09237-3 ####[facility] LABCLIA [id number] [place] [address] Glucose [Mass/Vol]108 mg/bTBttf65-47ZpanfccneACMC Healthcare [facility] on above: Order Comment: Specimen Type: BLOOD SPECIMENOrdering Facility: [facility] Address:[address] [place], [place] [address]Nlresj Comment: The [place] Diabetes Association (ADA) provides guidance for cutoff [...] Standards of Medical Care in Diabetes 2016, [place] [employer] Association. Diabetes Care. 2016.39(Suppl 1).Performed By: #### 77134-0 ####[facility] LABCLIA [id number] [place], [place] [address]Tlimrgbiv [Moles/Vol]4.5 mmol/LNormal3.7-5.1CLima City Hospital on above:Order Comment: Specimen Type: BLOOD SPECIMENOrdering Facility: [facility] Address:[address] [place], [place] [address]Performed By: #### 79222-2 ####[facility] LABCLIA [id number] [place], [place] [address]Fehnpws [Mass/Vol]6.2 g/dLLow6.3-8.0[facility] on above:Order Comment: Specimen Type: BLOOD SPECIMENOrdering Facility: [facility] Address:[address] [place] [address]Fyubmnabr By: #### 57449- 8 ####[facility] LABCLIA [id number] [place], [place] [address]Ouwirt [Moles/Vol]135 mmol/PCli717-279WuvpkctpuACMC Healthcare [facility] on above:Order Comment: Specimen Type: BLOOD SPECIMENOrdering Facility: [facility] Address:[address] [id number] By: #### 76520-0 ####[facility] LABCLIA [id number] [place], [place] [address]Fqnq nitrogen [Mass/Vol]17 mg/dLNormal9-24[facility] on above:Order Comment: Specimen Type: BLOOD SPECIMENOrdering Facility: [facility] Address:[facility] [address] [id number] By: #### 09240-2 ####[facility] LABCLIA [id number] [place], [place] [address]RHPNZScz [id number] (SP) Office (HEMASA) MARY DIAZ ([id number]) [address] [facility] Date Time Provider Department 07/19/24 11:00 AM NORBERTO ANDRADE During your visit today, we recorded the following information about you: Temperature Pulse Respiration Blood pressure 97.2 degrees 81/minute 18/minute 121/74 Weight 86.7 kg Norberto Andrade MD 07/19/2024 11:42 AM Signed PATIENT NAME: Mary Diaz CLINIC NO.: [id number] ATTENDING PHYSICIAN: Norberto Andrade MD DATE OF SERVICE: July 19, [address] Lionel Whitney [address] [facility] [address] thank you for referring Mary Rogers Emily [...] atleast 1 fragment without obvious stromal invasion (desk officer). 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 Urology recommended induction [...] atleast 1 fragment without obvious stromal invasion (desk officer). 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 - Urology recommended induction BCG x 6 treatments. - We will start him on weekly BCG treatments after 2 weeks from today - Check CBC CMP - All his questions answered in detail - F/u in [address] Lionel Whitney [address] [address] thank you for allowing me to participate in Mary Diaz care, if there are any questions or concerns please do not hesitate to contact me at the number below. I spent a total of 60 pawan (more content not included)...NormalLakehealth Beachwood Medical CenterAmbulatory Visit Summaryon 38-82-2828Zhnpypjort Visit SummaryAmbulatory Visit Summary MARY DIAZ :1950 [...] Lionel WHITNEY MD Where: [facility] [address] [place] [address]- You Need to Schedule the Following Appointments Follow Up with Lionel WHITNEY MD, URL When: Where: [facility] [address] [place] [address]- Medications What How Much When Instructions Unchanged [...] family history of bladd (more content not included)...[facility] HospitalUrology Office/Clinic Noteon 37-42-0398Uuakvbj Office/Clinic Note Urology Office/Clinic Note Chief Complaint [...] 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 MEDICAL CARE EVALUATION SPECIALIST present and uninvolved. Mitomycin 03/26/22 and 04/20/22. TURBT 01/14/23 - Neg. Chronic inflammation and extensive necrosis. S/p TURBT 07/06/24 - A small focus of borderline high-grade papillary urothelial carcinoma in at least 1 fragment wo obvious stromal invasion (desk officer). 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 Reviewed pathology with pt. Intravesical BCG recommended to help prevent tumor recurrence. EORTC 41661 trial showed no difference between 1/3 dose and full- dose BCG in patients with high-risk disease. Pt is aware of the reasoning and is amenable to proceed as discussed. Will likely need to refer [facility] for BCG. Previously received mitomycin which is good for low grade bladder ca but not high grade. Follow up after below or sooner if needed. Pt understands and agrees with plan. -Refer to [facility] for induction BCG x 6 doses. [...] [facility] [address], [place] [address]- Additional Instructions: Refer to [facility] for induction BCG x 6 doses [...] (08/2014), Colonoscopy (05/2014), Complete (more content not included)...[facility] Doctors HospitalComment on above:Result Comment: Electronically Signed By: Lionel WHITNEY MD\.br\Date and Time Signed: 07/12/24 11:00 EST\.br\Electronically Co-Signed By: Liane Wheeler\.br\Date and Time Co-Signed: 07/12/24 10:59 ESTLon 07-06-2024L Specimen: [id number] Received: 07/07/24 Status: ZACKERY Nails Num: [id number] Spec Type: Surgical Subm Dr: Lionel Whitney MD Tissues: A Urinary Bladder - TUR (BLADDER TUMOR) Procedures: FRANSICO, Gross/Micro L5 Age/ Patient Sex Location Account Attending Physician Mary Diaz 74/M LABELL [id number] Lionel Whitney MD SPEC NUM: [id number] RECD: 07/07/24 STATUS: ZACKERY REBeltran NUM: [id number] JOE: 07/06/24 [facility] DR: Lionel Whitney MD ENTERED: 07/07/[address] [facility] [address]: Melba,Lab SPEC TYPE: Surgical DEPT: KIANA HERNANDEZ ENTERED BY: [id number] RECV BY: [id number] ORDERED: HE, Gross/Micro L5 ORDERED: HE, Gross/Micro L5 Pathological Diagnosis Urinary bladder tumor, TURBT: -A small focus of borderline high-grade papillary urothelial carcinoma in at least 1 fragment, without obvious stromal invasion (desk officer) -Muscularis propria muscle is also present in [...] BS25 Received: 07/07/24 Status: ZACKERY Nails Num: [id number] Spec Type: Surgical Subm Dr: Lionel Whitney MD Tissues: A Urinary Bladder - TUR (BLADDER TUMOR) Procedures: Kathy BATEMAN/Eligio Ochoa Patient: Mary Diaz [id number] (Continued) Specimen: [id number] Received: 07/07/24 (Continued) Signed (signature on file) Yordy Dixon MD 07/10/24 1627 Specimen: [id number] Received: 07/07/24 Status: ZACKERY Nails Num: [id number] Spec Type: Surgical Subm Dr: Lionel Whitney MD Tissues: A Urinary Bladder - TUR (BLADDER TUMOR) Procedures: Kathy BATEMAN/Micro L5 Patient: Mary Diaz [id number] (Continued) Specimen: [id number] Received: 07/07/24 (Continued) Microscopic Description Microscopic examinations are performed supporting the above interpretation CPT Codes 01406 Specimen: [id number] Received: 07/07/24-1422 Status: ZACKERY Nails Num: [id number] Spec Type: Surgical Subm Dr: Lionel Whitney MD Tissues: A Urinary Bladder - TUR (BLADDER TUMOR) Procedures: HE, Gross/Micro L5 Patient: Mary Diaz [id number] (Continued) Signed (signature on file) Yordy Dixon MD 07/10/[address] [place] [address] Physician GroupTRANSTHORACIC ECHO (TTE) COMPLETE [phone] ECHO (TTE) [address], [address] [place] [address] TRANSTHORACIC ECHOCARDIOGRAM REPORT Patient Name: MARY DIAZ Mauldin Physician: [id number] Rolly Michaels MD, [facility] Study Date: 06/09/2024 Ordering Provider: [id number] CADY ESPINOSA MRN/PID: [id number] Fellow: Nurse: Date of /Age: 8 1950 / 74 years Driver Education Instructor: Alyse Arriaga RDCS, RVT Gender Assigned at Additional Staff: : Height: 182.88 cm Admit Date: Weight: 86.64 kg Admission Status: BSA / BMI: 2.09 m2 / 25.90 Department Location: [facility] kg/m2 Heart [place]ando Blood Pressure: 162 /82 mmHg Study Type: TRANSTHORACIC ECHO (TTE) COMPLETE Diagnosis/ICD: Shortness of breath-R06.02 Indication: HTN, Hyperlipidemia, Former Smoker, Asymetrical Upper Extremity Blood Pressures, History of Bladder and Prostate Cancer CPT Codes: Echo Complete w Full Doppler-77960 Study Detail: The following Echo studies were [...] mmHg PIEDV: 2.07 m/s PADP: 20.1 mmHg [id number] Rolly iMchaels MD, FACC Electronically signed on 06/09/2024 at 4:40:40 PM Final [facility]US Heart TransthoracicOrdered By: Rolly Michaels on 29-48-2759Rwllgq Valve Area by Continuity of Peak Velocity2.99 ub6BorgfzapobWVUMedicine Harrison [facility] Hospital Work Phone: [phone] Valve Area by Continuity of VTI3.72 cm2 [facility] Work Phone: [phone] mn hjuh8lnQuBmyytdeehhMemorial Health System [facility] Work Phone: [phone] pk mxwh8qhZuItvrwbvwxhWVUMedicine [facility] Hospital Work Phone: [phone] pk vel1.47 m/sUnSalem City Hospital Work Phone: [phone] A4C EF71.4UnSalem City Hospital Work Phone: [phone] Biplane EF68 %[facility] Work Phone: [phone] EF63 %[facility] Work Phone: [phone] [facility] Work Phone: [phone] diam2.5 [facility] Work Phone: [phone] avg E/e' ratio6.2UnSalem City Hospital Work Phone: [phone] E/A ratio0.57[facility] Work Phone: RVSP30.2mmHgUnSalem City Hospital Work Phone: UnSalem City Hospital Work Phone: US Heart Transthoracicon 06-09-2024 [facility] [place] [address] [facility], [address], [place] [address] TRANSTHORACIC ECHOCARDIOGRAM REPORT Patient Name: MARY DIAZ Reading Physician: [id number] Rolly Michaels MD, [facility] Study Date: 06/09/2024 Ordering Provider: [id number] CADY ESPINOSA MRN/PID: [id number] Fellow: Nurse: Date of /Age: 8 1950 / 74 years Driver Education Instructor: Alyse Arriaga RDCS, RVT Gender Assigned at Additional Staff: : Height: 182.88 cm Admit Date: Weight: 86.64 kg Admission Status: BSA / BMI: 2.09 m2 / 25.90 Department Location: [facility] kg/m2 Heart [place] Blood Pressure: 162 /82 mmHg Study Type: TRANSTHORACIC ECHO (TTE) COMPLETE Diagnosis/ICD: Shortness of breath-R06.02 Indication: HTN, Hyperlipidemia, Former Smoker, Asymetrical Upper Extremity Blood Pressures, History of Bladder and Prostate Cancer CPT Codes: Echo Complete w Full Doppler-93953 Study Detail: The following Echo studies were [...] content not included)...Rolly Fleming MD - 06/09/[address], [address] [address] TRANSTHORACIC ECHOCARDIOGRAM REPORT Patient Name: MARY DIAZ Reading Physician: [id number] Rolly Michaels MD, [facility] Study Date: 06/09/2024 Ordering Provider: [id number] CADY ESPINOSA MRN/PID: [id number] Fellow: Nurse: Date of /Age: 8 1950 / 74 years Driver Education Instructor: Alyse Arriaga RDCS, T Gender Assigned at Additional Staff: : Height: 182.88 cm Admit Date: Weight: 86.64 kg Admission Status: BSA / BMI: 2.09 m2 / 25.90 Department Location: [facility] kg/m2 [facility] Blood Pressure: 162 /82 mmHg Study Type: TRANSTHORACIC ECHO (TTE) COMPLETE Diagnosis/ICD: Shortness of breath-R06.02 Indication: HTN, Hyperlipidemia, Former Smoker, Asymetrical Upper Extremity Blood Pressures, History of Bladder and Prostate Cancer CPT Codes: Echo Complete w Full Doppler-29587 Study Detail: The following Echo studies were [...] mmHg PIEDV: 2.07 m/s PADP: 20.1 mmHg [id number] Rolly Michaels MD, FACC Electronically signed on 06/09/2024 at 4:40:40 PM Final [facility] Work Phone: us.doppler Carotid arteries - bilateralon 06-09-[address], Suite [facility], [place] [address] Vascular Lab Report [facility] US CAROTID ARTERY DUPLEX BILATERAL Patient Name: MARY DIZA Reading Physician: [id number] Rolly Michaels MD, [facility] Study Date: 06/09/2024 Ordering Provider: [id number] CADY ESPINOSA MRN/PID: [id number] Fellow: Technologist: Alyse Arriaga RD, T Date of /Age: 8 1950 / 74 years Technologist 2: Gender: M Admission Status: Outpatient Location Performed: [facility] Diagnosis/ICD: Other specified symptoms and signs involving the circulatory and respiratory systems-R09.89 Indication: Unequal Upper Extremity Blood Pressures, HTN, Hyperlipidemia, Former Smoker, History of Bladder and Prostate Cancer CPT Codes: 29326 Cerebrovascular Carotid Duplex scan complete CONCLUSIONS: Right [...] cm/s Right Left ICA/CCA Ratio 1.5 0.7 [id number] Rolly Michaels MD, FACC Final Rolly Fleming MD - 06/09/[address], [address] [place] [address] Vascular Lab Report [facility] US CAROTID ARTERY DUPLEX BILATERAL Patient Name: MARY DIAZ Reading Physician: [id number] Rolly Michaels MD, FAC Study Date: 06/09/2024 Ordering Provider: [id number] ESPINOSA MRN/PID: [id number] Fellow: Technologist: Alyse Arriaga RD, [facility] Date of /Age: 8 1950 / 74 years Technologist 2: Gender: M Admission Status: Outpatient Location Performed: [facility] Diagnosis/ICD: Other specified symptoms and signs involving the circulatory and respiratory systems-R09.89 Indication: Unequal Upper Extremity Blood Pressures, HTN, Hyperlipidemia, Former Smoker, History of Bladder and Prostate Cancer CPT Codes: 67390 Cerebrovascular Carotid Duplex scan complete CONCLUSIONS: Right [...] cm/s Right Left ICA/CCA Ratio 1.5 0.7 11269 Rolly Michaels MD, FACC Final [facility] Work Phone: Radiology Study observation (narrative)[facility] Work Phone: US.doppler Carotid arteries - bilateralOrdered By: Rolly Michaels on 70-70-4279RhhekjrrofSalem City Hospital Work Phone: VAS US CAROTID ARTERY DUPLEX BILATERALon 06-09-2024 [facility] US CAROTID ARTERY DUPLEX BILATERALNorth [address], [address] [place] [address] Vascular Lab Report [facility] US CAROTID ARTERY DUPLEX BILATERAL Patient Name: MARY DIAZ Reading Physician: [id number] Rolly Michaels MD, [facility] Study Date: 06/09/2024 Ordering Provider: [id number] CADY GUTIERREZAN MRN/PID: [id number] Fellow: Technologist: Alyse Arriaga RDCS, RVT Date of /Age: 8 1950 / 74 years Technologist 2: Gender: M Admission Status: Outpatient Location Performed: [facility] Diagnosis/ICD: Other specified symptoms and signs involving the circulatory and respiratory systems-R09.89 Indication: Unequal Upper Extremity Blood Pressures, HTN, Hyperlipidemia, Former Smoker, History of Bladder and Prostate Cancer CPT Codes: 49140 Cerebrovascular Carotid Duplex scan complete CONCLUSIONS: Right [...] cm/s Right Left ICA/CCA Ratio 1.5 0.7 [id number] Rolly Michaels MD, FACC Final [facility] HealthUrine Cytology ([facility])on 97-60-1139Qaiagjdzhtc exam Cytology (U) [Interp]Diagnosis InfoInvalid Interpretation [facility]ronComment on above:Result Comment: A:Urine,Urine:Voided Interpretation - Occasional atypical urothelial cells with degenerative changes. CPT 80100 MicroScopic Description - Adequacy - Gross Description Site ID:A color Yellow fixative Alcohol Specimen designated Urine received in alcohol preservative and labeled with the patient???s name, consists of 40ml clear yellow fluid. Electronically signed by : on: 05/29/2024 13:16:19Performed By: #### [id number] #### [facility] [address], [place] [address]Qrgnv Cytology ([facility])on 62-71-6038JS Method of Extraction VoidedNoKeenan Private HospitalComment on above:Performed By: #### [id number] #### [facility] [address], [place] [address]MS Number of Hiou8Ueiflgm Interpretation [facility] AkronComment on above:Performed By: #### [id number] #### [facility] [address], [place] [address]AW SpecimenUrineOhioHealth Doctors HospitalComment on above:Performed By: #### [id number] #### [facility] [address], [place] [address]EV Type of ServiceTechnical OnlyOhioHealth Doctors HospitalComment on above:Performed By: #### [id number] #### [facility] [address], [place] [address]BvuRrkkmr Fish and Urine Cyto ([facility])on 74-73-1072QUWKSZ & UC Diagnosis InfoInvalid Interpretation [facility] CenterComment on above:Result Comment: Gross Description Electronically signed by : on: 05/15/2024 11:58:17Performed By: #### [id number] #### [facility] [address], [place] [address]Rueb OR Intraoperative Recordon 76-46-6533Ncqb OR Intraoperative RecordMain OR Intraoperative Record IntraOp Document Type FTURO Summary Primary Physician: Lionel WHITNEY MD Finalized Date/Time: 05/09/24 09:43:24 Pt. Name: MARY DIAZ/Sex: 1950 Male Med Rec #: [id number] Physician: Lionel WHITNEY MD Financial #: [id number] Pt. 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 Name: MARY DIAZ/Sex: 1950 Male Med Rec #: [id number] Physician: Lionel WHITNEY MD Financial #: [id number] Pt. Type: O Room/Bed: / Admit/Disch: 05/09/24 [...] Complaints of Pain: No Skin Integrity Intact, Britt, Warm, & Dry Vitals - EU Blood Pressure 190/90 Pulse 78 bpm Respirations 18 br/min SPO2 96 % Additional FISH RN Reviewed Yes Specimens Collected Last Modified By: Frances Byrnes RN 05/09/24 09:28:01 Finalized By: Frances Byrnes RN Document Signatures Signed By: Esther Boyd LPN 05/09/24 09:10 Frances Byrnes RN 05/09/24 09:28NormSalem City Hospital Operative Reporton 44-23-5274Cngxvbtqa ReportOperative Report Patient: MARY DIAZ Age: 74 [...] discharged home with antibiotic coverage, Follow up arranged.[facility] Doctors HospitalComment on above:Result Comment: Electronically Signed By: Lionel WHITNEY MD\.br\Date and Time Signed: 05/09/24 09:48 ESTUroVysion Fish and Urine Cyto ([facility])on 51-03-9134PMMR Method of ExtractionVoidedNoKeenan Private HospitalComment on above: Performed By: #### [id number] #### [facility] [address] [place] [id number] Number of Bqfl8Ddugwit Interpretation CodeTwin City HospitalComment on above:Performed By: #### [id number] #### [facility] [address] [place] [id number] SpecimenUrineNoKeenan Private HospitalComment on above:Performed By: #### [id number] #### [facility] [address] [place] [id number] Type of ServiceTechnical OnlyNoKeenan Private HospitalComment on above:Performed By: #### [id number] #### [facility] [address] [place] [id number] 12 Leadon 27-77-5980NgmnhsvbesWVUMedicine Harrison [facility] Hospital Work Phone: cervical spine wo/w conon 01-84-9199KH cervical spine wo/w [facility] [place] [address] MRI Report Signed Patient: Mary Diaz MR#: [id number] : 1950 Acct:[id number] Age/Sex: 73 / M ADM Date: 08/28/23 [...] Lupe Campos M.D.08/29/2023 1:06 PM Dictation Location: [place] [address] Transcribed By: [facility] 08/29/23 1306 Dictated By: Lupe Campos MD 08/29/23 1254 Signed By: 08/29/23 1306NoWilson [facility] Center Physician GroupISTAT XRay CREon 11-48-6941WXYVS GFR> 60.0NoWilson Medical Center Physician GroupComment on above:Result Comment: PERFORMED BY: [place] [id number] PATHOLOGIST PRODUCE RUNNER JENARO FLOREZ M.D.Performed By: #### ISCRE #### [place] [address] USANo Panel InformationOrdered By: Esther Lowery on 34-48-2470Mijtnny Estimated GFR (eGFR)> 60.0[facility] Whole blood creatinine measurementOrdered By: Esther Lowery on 08-28-2023 Creatinine [Mass/Vol]1.2 mg/dLNormal0.6-1.3FKettering Health Preble Comment on above:ER/ESD physician is notified/shown all ISTAT results.Critical values may be confirmed by laboratorytesting ifdeemed necessary by ER attending doctor.Result Comment: ER/ESD physician is notified/shown all ISTAT results. Critical values may be confirmed by laboratory testing if deemed necessary by ER attending doctor.Performed By: #### ISCRE #### [place] [address] USAXR cervical spine LAT/FLX/EXTon 98-66-4137TV cervical spine LAT/FLX/EXTSELECT MEDICAL [facility] [place] [address] XRay Report Signed Patient: Mary Diaz MR#: [id number] : 1950 Acct:[id number] Age/Sex: 73 / M ADM Date: 08/12/23 Loc: XD Room: Type: [facility] Attending Dr: Esther HILTON Copies to: [...] Leahy DO 08/12/23 1528 Signed By: 08/12/23 1529[facility] Physician GroupXR lumbar spine 6V w bendingon 95-05-2681DU lumbar spine 6V w bendingSELECT [facility]ICAL SPECIAL[facility] [place] [address] [place] [address] XRay Report Signed Patient: Mary Diaz MR#: [id number] : 1950 Acct:[id number] Age/Sex: 73 / M ADM Date: 08/12/23 Loc: XD Room: Type: [facility] Attending Dr: Esther HILTON Copies to: [...] Leahy DO 08/12/23 1526 Signed By: 08/12/23 1528[facility] Physician GroupXR CSPINE MIN 4 VIEWSon 15-07-6692YN CSPINE MIN 4 VIEWSEXAMINATION: XR CSPINE MIN [...] Electronically authenticated by: ALLI CORTES Date: 2022-10-23 11:53German HospitalXR LSPINE W_OBLS AND FLEX_EXTon 62-03-1988FD LSPINE W_OBLS AND FLEX_EXTEXAM: XR LSPINE W_OBLS AND FLEX_EXT HISTORY: Low back pain COMPARISON: None. TECHNIQUE: 2 views Findings/impression: Retrolisthesis of L2 over L3 by 4 mm. Multilevel endplate degenerative changes, disc disease, and anterior spurring. Calcified atherosclerotic disease of aorta. No acute fracture. Electronically authenticated by: JAMAICA GONZALEZ Date: 2022-10-23 13:18German HospitalBNPon 96-37-0336Jmcvdslovxp peptide B (Bld) [Mass/Vol]844.0 pg/mLNormal<=900.0[facility] HospitalComment on above:Performed By: #### CVDTBH #### [facility] [address] [place] [address] Dr. Johnna Lara AUTO DIFFon 65-45-5082OULF #0.0 103/ulNormal0.0-0.1[facility] HospitalComment on above:Performed By: #### CBC #### [facility] [address] [place] [address] Dr. Jonhna DixonBasophils/100 WBC (Bld)0.0 %Critically low0.2-2.0The [facility]ja Medical CenterComment on above:Performed By: #### CBC #### [facility] [address] [place] [address] Dr. Johnna Bustamante #0.0 103/ulNormal0.0-0.7The [facility]ja Medical CenterComment on above: Performed By: #### CBC #### [facility] [address] [place] [address] Dr. Johnna Pichardoosinophils/100 WBC (Bld)0.0 %Critically low0.9-7.0The [facility] Medical CenterComment on above:Performed By: #### CBC #### [facility] [address] [place] [address] Dr. Johnna Pichardorythrocyte distribution width (RBC) [Ratio]13.9 %Gtiszx11.0-15.0 The [facility] Medical CenterComment on above:Performed By: #### CBC #### [facility] [address] [place] [address] Dr. Johnna DixonHematocrit (Bld) [Volume fraction]33.6 %Critically low42.0-54.0 The [facility] on above:Performed By: #### CBC #### [facility] [address] [place] [address] Dr. Johnna DixonHemoglobin (Bld) [Mass/Vol]11.1 g/dLCritically low14.0-18.0The [facility] Medical CenterComment on above:Performed By: #### CBC #### [facility] [address] [place] [address] Dr. Johnna Larson #0.03 10e3/ulNormal0.00-0.03The [facility] CenterCommackinac straits hospital on above:Performed By: #### CBC #### [facility] [address] [place] [address] Dr. Johnna Larson %0.5 %Normal0.0-0.5The [facility] Medical CenterComment on above: Performed By: #### CBC #### [facility] [address] [place] [address] [address] Johnna Ruelas #0.7 103/ulCritically low1.2-3.8The [facility] Comment on above:Performed By: #### CBC #### [facility] [address] [place] [address] [address] Johnna Montemayormphocytes/100 WBC (Bld)11.5 %Critically low20.5-60.0The [facility] Medical CenterComment on above:Performed By: #### CBC #### [facility] [address] [place] [address] [address] Johnna Garcia DIFF REQNONormalThe [facility]huja Medical CenterComment on above: Performed By: #### CBC #### [facility] [address] [place] [address] Dr. Johnna Marquez (RBC) [Entitic mass]31.0 ukJapktb21.9-34.0The [facility] CenterComment on above:Performed By: #### CBC #### [facility] [address] [place] [address] Dr. Johnna Marquez (RBC) [Mass/Vol]33.0 g/cBRjlzrc12.9-35.2The [facility] Medical CenterComment on above:Performed By: #### CBC #### [facility] [address] [place] [address] Dr. Johnna Marquez (RBC) [Entitic vol]93.9 xTMwzbcr09.0-94.0The [facility]ja Medical CenterComment on above:Performed By: #### CBC #### [facility] [address] [place] [address] Dr. Johnna Vela #0.3 103/ulNormal0.3-0.8The [facility] Medical CenterComment on above:Performed By: #### CBC #### [facility] [address] [place] [address] Dr. Johnna Noocytes/100 WBC (Bld)4.5 %Normal1.7-12.0[facility] Comment on above:Performed By: #### CBC #### [facility] [address] [address] [address] Johnna Kaur #5.0 103/ulNormal1.4-6.5The [facility] CenterComment on above:Performed By: #### CBC #### [facility] [address] [address] [address] Johnna Maurerutrophils/100 WBC (Bld)83.5 %Critically high43.0-75.0The [facility] CenterComment on above:Performed By: #### CBC #### [facility] [address] [address] [address] Jonhna DixonPlatelet mean volume (Bld) [Entitic vol]10.3 fLNormal9.5-13.5The [facility] CenterComment on above:Performed By: #### CBC #### [facility] [address] [place] [address] Dr. Johnna DixonPLT184 103/vrEipwjh636-086Uwm [facility] CenterComment on above: Performed By: #### CBC #### [facility] [address] [address] [address] Johnna DixonRBC3.58 106/ulCritically low4.70-6.10The [facility] CenterComment on above:Performed By: #### CBC #### [facility] [address] [place] [address] Dr. Johnna DixonWBC6.0 103/ulNormal4.0-11.0The [facility] CenterComment on above: Performed By: #### CBC #### [facility] [address] [place] [address] Dr. Johnna DixonPROF 14(COMP METB)on 54-66-1284Egtxwss [Mass/Vol]2.7 g/dL Critically low3.4-5.0The [facility] CenterComment on above:Performed By: #### CVDTBH #### [facility] [address] [place] [address] Dr. Johnna DixonAlbumin/Globulin [Mass ratio]0.9 {ratio}NormalThe [facility]lesville HospitalComment on above:Performed By: #### CVDTBH #### [facility] [address] [address] [address] Johnna Pierce [Catalytic activity/Vol]32 U/LCritically jmq50-160Ifq [facility] CenterComment on above:Performed By: #### CVDTBH #### [facility] [address] [address] [address] Johnna Saha [Catalytic activity/Vol]19 U/OItsiek75-43Wgi [facility] CenterComment on above:Performed By: #### CVDTBH #### [facility] [address] [place] [address] Dr. Johnna Hdezon gap [Moles/Vol]14.0 mmol/LNormalThe [facility] Comment on above:Performed By: #### CVDTBH #### [facility] [address] [place] [address] Dr. Johnna DixonAST [Catalytic activity/Vol]12 U/LCritically btp43-03Xyi [facility] CenterComment on above:Performed By: #### CVDTBH #### [facility] [address] [place] [address] Dr. Johnna DixonBilirubin [Mass/Vol]0.6 mg/dLNormal0.2-1.0The [facility] Comment on above:Performed By: #### CVDTBH #### [facility] [address] [place] [address] Dr. Johnna DixonCalcium [Mass/Vol]8.3 mg/dLCritically low8.5-10.1[facility] HospitalComment on above:Performed By: #### CVDTBH #### [facility] [address] [place] [address] Dr. Johnna DixonChloride [Moles/Vol]107 mmol/UFkhzaw57-799Sex [facility] Comment on above:Performed By: #### CVDTBH #### [facility] [address] [place] [address] Dr. Johnna DixonCO2 [Moles/Vol]24.9 mmol/ZYpjjoa31.0-32.0The [facility] Comment on above:Performed By: #### CVDTBH #### [facility] [address] [place] [address] Dr. Johnna DixonCreatinine [Mass/Vol]1.20 mg/dLNormal0.70-1.30The [facility] CenterComment on above:Performed By: #### CVDTBH #### [facility] [address] [place] [address] Dr. Johnna PichardoGFR-AF LEBANESE>60Normal>=60The [facility] CenterComment on above:Performed By: #### CVDTBH #### [facility] [address] [place] [address] Dr. Johnna PichardoGFR-NON AF LNDUMDGW59 mL/min/1.13j7Wyvxkj>=60The [facility] CenterComment on above:Performed By: #### CVDTBH #### [facility] [address] [place] [address] Dr. Johnna DixonGlobulin (S) [Mass/Vol]2.9 g/dLNormalThe [facility] CenterComment on above:Performed By: #### CVDTBH #### [facility] [address] [place] [address] Dr. Johnna DixonGlucose [Mass/Vol]153 mg/dLCritically sbvw24-022Ute [facility] CenterComment on above:Performed By: #### CVDTBH #### [facility] [address] [place] [address] Dr. Johnna DixonPotassium [Moles/Vol]3.9 mmol/LNormal3.5-5.1The [facility] Comment on above:Performed By: #### CVDTBH #### [facility] [address] [place] [address] Dr. Johnna DixonProtein [Mass/Vol]5.6 g/dLCritically low6.4-8.2The [facility] CenterComment on above:Performed By: #### CVDTBH #### [facility] [address] [place] [address] Dr. Johnna Calzadadium [Moles/Vol]142 mmol/LZygscz349-507Dox [facility] Comment on above:Performed By: #### CVDTBH #### [facility] [address] [place] [address] Dr. Johnna Gerber nitrogen [Mass/Vol]14.0 mg/dLNormal7.0-18.0The [facility] CenterComment on above:Performed By: #### CVDTBH #### [facility] [address] [place] [address] Dr. Johnna Gerber nitrogen/Creatinine [Mass ratio]11.7 mg/mgNormalThe [facility] CenterComment on above:Performed By: #### CVDTBH #### [facility] [address] [place] [address] Dr. Johnna Lara AUTO DIFFon 55-30-8185SFPW #0.0 103/ulNormal0.0-0.1The [facility] CenterComment on above:Performed By: #### SPUTGS #### [facility] [address] [place] [address] Dr. Johnna DixonBasophils/100 WBC (Bld)0.2 %Normal0.2-2.0[facility] Comment on above:Performed By: #### SPUTGS #### [facility] [address] [place] [address] Dr. Johnna Bustamante #0.0 103/ulNormal0.0-0.7The [facility] CenterComment on above: Performed By: #### SPUTGS #### [facility] [address] [place] [address] Dr. Johnna Pichardoosinophils/100 WBC (Bld)0.2 %Critically low0.9-7.0The [facility] CenterComment on above:Performed By: #### SPUTGS #### [facility] [address] [place] [address] Dr. Johnna Pichardorythrocyte distribution width (RBC) [Ratio]14.1 %Wfemht41.0-15.0 The [facility] CenterComment on above:Performed By: #### SPUTGS #### [facility] [address] [place] [address] Dr. Johnna DixonHematocrit (Bld) [Volume fraction]39.9 %Critically low42.0-54.0 The [facility] CenterComment on above:Performed By: #### SPUTGS #### [facility] [address] [place] [address] Dr. Johnna DixonHemoglobin (Bld) [Mass/Vol]12.8 g/dLCritically low14.0-18.0The [facility] CenterComment on above:Performed By: #### SPUTGS #### [facility] [address] [place] [address] Dr. Johnna Larson #0.01 10e3/ulNormal0.00-0.03The [facility] CenterComment on above:Performed By: #### SPUTGS #### [facility] [address] [place] [address] Dr. Johnna Larson %0.2 %Normal0.0-0.5The [facility] CenterComment on above: Performed By: #### SPUTGS #### [facility] [address] [place] [address] Dr. Johnna Ruelas #0.7 103/ulCritically low1.2-3.8The [facility] Comment on above:Performed By: #### SPUTGS #### [facility] [address] [place] [address] Dr. Johnna Montemayormphocytes/100 WBC (Bld)14.3 %Critically low20.5-60.0The [facility] CenterComment on above:Performed By: #### SPUTGS #### [facility] [address] [place] [address] Dr. Johnna OswaldUAL DIFF REQNONormalThe [facility] CenterComment on above: Performed By: #### SPUTGS #### [facility] [address] [place] [address] Dr. Johnna Khan (RBC) [Entitic mass]30.7 mrObiplz49.9-34.0The [facility]ba HospitalComment on above:Performed By: #### SPUTGS #### [facility] [address] [place] [address] Dr. Johnna Marquez (RBC) [Mass/Vol]32.1 g/mQDhnran20.9-35.2The [facility] CenterComment on above:Performed By: #### SPUTGS #### [facility] [address] [place] [address] Dr. Johnna Stiles (RBC) [Entitic vol]95.7 fLCritically high80.0-94.0The [facility] CenterComment on above:Performed By: #### SPUTGS #### [facility] [address] [place] [address] Dr. Johnna Vela #0.6 103/ulNormal0.3-0.8The [facility] CenterComment on above:Performed By: #### SPUTGS #### [facility] [address] [place] [address] Dr. Johnna Noocytes/100 WBC (Bld)12.5 %Critically high1.7-12.0The [facility] CenterComment on above:Performed By: #### SPUTGS #### [facility] [address] [place] [address] Dr. Johnna Kaur #3.6 103/ulNormal1.4-6.5The [facility] CenterComment on above:Performed By: #### SPUTGS #### [facility] [address] [place] [address] Dr. Johnna Maurerutrophils/100 WBC (Bld)72.6 %Wmujxg53.0-75.0The [facility] CenterComment on above:Performed By: #### SPUTGS #### [facility] [address] [place] [address] Dr. Johnna Voss mean volume (Bld) [Entitic vol]9.5 fLNormal9.5-13.5The [facility] CenterComment on above:Performed By: #### SPUTGS #### [facility] [address] [place] [address] Dr. Johnna DixonPLT213 103/jjLxajlb634-319Jdf [facility] CenterComment on above: Performed By: #### SPUTGS #### [facility] [address] [place] [address] Dr. Johnna DixonRBC4.17 106/ulCritically low4.70-6.10The [facility] CenterComment on above:Performed By: #### SPUTGS #### [facility] [address] [place] [address] Dr. Johnna DixonWBC5.0 103/ulNormal4.0-11.0The [facility] CenterComment on above: Performed By: #### SPUTGS #### [facility] [address] [place] [address] Dr. Johnna Mitchell BLOODon 20-30-8494Nxrourohtwc examination of blood, cultureCulture Observations: NO GROWTH AT 5 DAYS.NormalThe [facility] CenterComment on above:Performed By: #### BLDCX2 #### [facility] [address] [place] [address] Dr. Johnna DixonMicroscopic examination of blood, cultureCulture Observations: NO GROWTH AT 5 DAYS.NormalThe [facility] CenterComment on above:Performed By: #### SPUTGS #### [facility] [address] [place] [address] Dr. Johnna Mitchell SPUTUMon [id number] SPUTUMCulture Observations: NORMAL RESPIRATORY JONATAN.NormalThe [facility] CenterComment on above:Performed By: #### SPUTGS #### [facility] [address] [place] [address] Dr. Johnna DixonCovid-19 PCR (CVDTB)on [id number]-CoV-2 (COVID-19) RNA REX+probe Ql (Unsp spec)Not detectedNormalNOT DETECTEDThe [facility] Comment on above:Result Comment: This test is not yet approved or cleared by the [place] FDA. When there are no FDA-approved or cleared tests available, and other criteria are met, FDA can make tests available under an emergency access mechanism called an Emergency Use Authorization (EUA). The EUA for this test is supported by the Patient Centered Care Specialist of Health and Human Service's (HHS's) declaration [...] consistent with SARS-CoV-2.Performed By: #### CVDTBH #### [facility] [address] [place] [address] Dr. Johnna DixonLACTATE/LACTIC ACIDon 48-33-9602Ysvgbak [Moles/Vol]1.2 mmol/L Normal0.4-2.0[facility] HospitalComment on above:Performed By: #### LACT #### [facility] [address] [place] [address] Dr. Johnna DixonLactate [Moles/Vol]2.4 mmol/LCritically high0.4-2.0[facility] HospitalComment on above:Performed By: #### LACT #### [facility] [address] [place] [address] Dr. Johnna DixonPROF CHEM 8 (BAS METB)on 69-14-6385Xksxi gap [Moles/Vol]12.6 mmol/LNormalParma Community General HospitalComment on above:Performed By: #### BMP #### [facility] [address] [place] [address] Dr. Johnna DixonCalcium [Mass/Vol]8.9 mg/dLNormal8.5-10.1[facility] Comment on above:Performed By: #### BMP #### [facility] [address] [place] [address] Dr. Johnna DixonChloride [Moles/Vol]106 mmol/DCsvstb83-546Qvy [facility] Comment on above:Performed By: #### BMP #### [facility] [address] [address] [address] Johnna DixonCO2 [Moles/Vol]25.8 mmol/MCsrhlc22.0-32.0The [facility] Comment on above:Performed By: #### BMP #### [facility] [address] [address] [address] Johnna DixonCreatinine [Mass/Vol]1.41 mg/dLCritically high0.70-1.30The [facility] CenterComment on above:Performed By: #### BMP #### [facility] [address] [address] [address] Oropeza ChangEGFR-AF LEBANESE>60Normal>=60The [facility] CenterComment on above:Performed By: #### BMP #### [facility] [address] [address] [address] Johnna PichardoGFR-NON AF YNXDLATI97 mL/min/1.85m8Eijunyazfz low>=60The [facility] CenterComment on above:Performed By: #### BMP #### [facility] [address] [address] [address] Johnna DixonGlucose [Mass/Vol]111 mg/dLCritically fixj71-908Bfr [facility] CenterComment on above:Performed By: #### BMP #### [facility] [address] [address] [address] Johnna DixonPotassium [Moles/Vol]3.4 mmol/LCritically low3.5-5.1The [facility] CenterComment on above:Performed By: #### BMP #### [facility] [address] [address] [address] Johnna DixonSodium [Moles/Vol]141 mmol/ROvsgyo093-811Qye [facility] Comment on above:Performed By: #### BMP #### [facility] [address] [address] [address] Johnna DixonUrea nitrogen [Mass/Vol]17.0 mg/dLNormal7.0-18.0The [facility] HospitalComment on above:Performed By: #### BMP #### [facility] [address] [address] [address] Johnna Gerber nitrogen/Creatinine [Mass ratio]12.1 mg/mgGerman HospitalComment on above:Performed By: #### BMP #### [facility] [address] [address] [address] Johnna RodriguezUTUM GRAM STAINon 70-48-6540KDSBAWXQKbiqhrPlsSumma Health [facility] on above:Performed By: #### SPUTGS #### [facility] [address] [address] [address] Johnna GreenPHTHEROIDSGerman HospitalComment on above:Performed By: #### SPUTGS #### [facility] [address] [address] [address] Johnna PichardoPITHELIALS<25German HospitalComment on above: Performed By: #### SPUTGS #### [facility] [address] [address] [address] Johnna DixonFUNGAL ELEMENTSGerman HospitalComment on above: Performed By: #### SPUTGS #### [facility] [address] [address] [address] Johnna Stover NEG BACILLIFESt. Mary's Medical CenterComment on above: Performed By: #### SPUTGS #### [facility] [address] [address] [address] Johnna Stover NEG DIPPLOCOCCIDayton Children's Hospital HospitalComment on above: Performed By: #### SPUTGS #### [facility] [address] [address] [address] Johnna Stover POS BACILLIGerman HospitalComment on above: Performed By: #### SPUTGS #### [facility] [address] [address] [address] Johnna Stover POSITIVE COCCIFESt. Mary's Medical CenterComment on above:Performed By: #### SPUTGS #### [facility] [address] [place] [address] Dr. Johnna DixonWBC (Bld) [#/Vol]10*3/uLNormAdena Fayette Medical CenterComment on above:Performed By: #### SPUTGS #### [facility] [address] [place] [address] Dr. Johnna DixonSYMPTOMATIC COVID-19 ANTIGENon [id number] StatementSEE BELOW NormalThe [facility] CenterCommackinac straits hospital on above:Result Comment: This test has [...] is revoked sooner.Performed By: #### CVDAGS #### [facility] [address] [place] [address] Dr. Johnna Paez-CoV-2 (COVID-19) RNA REX+probe Ql (Unsp spec)NegativeNormal NEGATIVEThe [facility] CenterComment on above:Performed By: #### CVDAGS #### [facility] [address] [place] [address] Dr. Johnna DixonXR CHEST 1 Von [id number] CHEST 1 VEXAMINATION: XR CHEST 1 V [...] Electronically authenticated by: SOCORRO SERRANO Date: 2022-10-05 11:44NoPomerene HospitalUS SINGLE QUAD RT UPPERon [id number] SINGLE QUAD RT UPPER EXAM: US SINGLE [...] Electronically authenticated by: SOCORRO HUFFMAN Date: 2022-09-24 09:46NoPomerene HospitalAMYLASEon 09-21-3634Tzwzqco [Catalytic activity/Vol]78 U/L Empiqw00-595Mpj [facility] CenterComment on above:Performed By: #### CVDTBH #### [facility] [address] [address] [address] Johnna Lara AUTO DIFFon [id number] #0.0 103/ulNormal0.0-0.1The [facility] CenterComment on above:Performed By: #### CVDTBH #### [facility] [address] [address] [address] Johnna Parrsophils/100 WBC (Bld)0.5 %Normal0.2-2.0The [facility] Comment on above:Performed By: #### CVDTBH #### [facility] [address] [address] [address] Johnna Bustamante #0.1 103/ulNormal0.0-0.7The [facility] CenterComment on above: Performed By: #### CVDTBH #### [facility] [address] [place] [address] Dr. Johnna Pichardoosinophils/100 WBC (Bld)1.9 %Normal0.9-7.0[facility] Comment on above:Performed By: #### CVDTBH #### [facility] [address] [place] [address] Dr. Johnna Pichardorythrocyte distribution width (RBC) [Ratio]14.5 %Ajwbzk70.0-15.0 The [facility] CenterComment on above:Performed By: #### CVDTBH #### [facility] [address] [place] [address] Dr. Johnna DixonHematocrit (Bld) [Volume fraction]39.1 %Critically low42.0-54.0 [facility] HospitalComment on above:Performed By: #### CVDTBH #### [facility] [address] [place] [address] Dr. Johnna DixonHemoglobin (Bld) [Mass/Vol]12.8 g/dLCritically low14.0-18.0[facility] HospitalComment on above:Performed By: #### CVDTBH #### [facility] [address] [place] [address] Dr. Johnna Larson #0.05 10e3/ulCritically high0.00-0.03The [facility] Comment on above:Performed By: #### CVDTBH #### [facility] [address] [place] [address] Dr. Johnna Larson %0.7 %Critically high0.0-0.5ThSelect Medical Specialty Hospital - YoungstownComment on above:Performed By: #### CVDTBH #### [facility] [address] [place] [address] Dr. Johnna LakeH #2.0 103/ulNormal1.2-3.8The [facility] CenterComment on above:Performed By: #### CVDTBH #### [facility] [address] [place] [address] Dr. Johnna Montemayormphocytes/100 WBC (Bld)27.4 %Xqtujz07.5-60.0The [facility] CenterComment on above:Performed By: #### CVDTBH #### [facility] [address] [place] [address] Dr. Johnna OswaldUAL DIFF REQNONormalThe [facility] CenterComment on above: Performed By: #### CVDTBH #### [facility] [address] [place] [address] Dr. Johnna Marquez (RBC) [Entitic mass]31.3 czXaatzc73.9-34.0The [facility] CenterComment on above:Performed By: #### CVDTBH #### [facility] [address] [place] [address] Dr. Johnna Marquez (RBC) [Mass/Vol]32.7 g/hXDlraai81.9-35.2The [facility] CenterComment on above:Performed By: #### CVDTBH #### [facility] [address] [place] [address] Dr. Johnna Marquez (RBC) [Entitic vol]95.6 fLCritically high80.0-94.0The [facility] CenterComment on above:Performed By: #### CVDTBH #### [facility] [address] [place] [address] Dr. Johnna Vela #0.5 103/ulNormal0.3-0.8The [facility] CenterComment on above:Performed By: #### CVDTBH #### [facility] [address] [place] [address] Dr. Johnna Noocytes/100 WBC (Bld)6.9 %Normal1.7-12.0The [facility] Comment on above:Performed By: #### CVDTBH #### [facility] [address] [place] [address] Dr. Johnna Kaur #4.7 103/ulNormal1.4-6.5The [facility]lesville HospitalComment on above:Performed By: #### CVDTBH #### [facility] [address] [place] [address] Dr. Johnna DixonNeutrophils/100 WBC (Bld)62.6 %Ayjfzy58.0-75.0The [facility] CenterComment on above:Performed By: #### CVDTBH #### [facility] [address] [place] [address] Dr. Johnna DixonPlatelet mean volume (Bld) [Entitic vol]9.3 fLCritically low 9.5-13.5The [facility] CenterComment on above:Performed By: #### CVDTBH #### [facility] [address] [place] [address] Dr. Johnna DixonPLT235 103/wpWbfufb026-849Sko [facility] CenterComment on above: Performed By: #### CVDTBH #### [facility] [address] [place] [address] Dr. Johnna DixonRBC4.09 106/ulCritically low4.70-6.10The [facility] CenterComment on above:Performed By: #### CVDTBH #### [facility] [address] [place] [address] Dr. Johnna DixonWBC7.4 103/ulNormal4.0-11.0The [facility] CenterComment on above: Performed By: #### CVDTBH #### [facility] [address] [place] [address] Dr. Johnna DixonLIPASEleanne 26-68-6938Hxqbcd [Catalytic activity/Vol]114.0 U/LNormal 73.0-393.0The [facility] CenterComment on above:Performed By: #### CVDAGS #### [facility] [address] [place] [address] Dr. Johnna Hernandez PROFILEleanne 48-57-0678Vpfautl [Mass/Vol]3.9 g/dLNormal3.4-5.0 The [facility] CenterComment on above:Performed By: #### CVDTBH #### [facility] [address] [address] [address] Johnna DixonAlbumin/Globulin [Mass ratio]1.6 {ratio}NormalThe [facility] CenterComment on above:Performed By: #### CVDTBH #### [facility] [address] [address] [address] Johnna BarneyP [Catalytic activity/Vol]59 U/YWaymso69-306Qdk [facility] CenterComment on above:Performed By: #### CVDTBH #### [facility] [address] [address] [address] Johnna BarneyT [Catalytic activity/Vol]23 U/XOqlubk51-67Nya [facility] CenterComment on above:Performed By: #### CVDTBH #### [facility] [address] [place] [address] Dr. Johnna DixonAST [Catalytic activity/Vol]8 U/LCritically zkz44-35Beh [facility] CenterCommackinac straits hospital on above:Performed By: #### CVDTBH #### [facility] [address] [place] [address] Dr. Johnna ArboledaI, CONJUGATED0.1 mg/dLNormal0.0-0.2The [facility] Comment on above:Performed By: #### CVDTBH #### [facility] [address] [place] [address] Dr. Johnna Arboledairubin [Mass/Vol]0.3 mg/dLNormal0.2-1.0The [facility] Comment on above:Performed By: #### CVDTBH #### [facility] [address] [place] [address] Dr. Johnna DixonGlobulin (S) [Mass/Vol]2.5 g/dLNormalThe [facility] CenterComment on above:Performed By: #### CVDTBH #### [facility] [address] [place] [address] Dr. Johnna DixonProtein [Mass/Vol]6.4 g/dLNormal6.4-8.2The [facility] Comment on above:Performed By: #### CVDTBH #### [facility] [address] [address] [address] Johnna DixonPROF CHEM 8 (BAS METB)on 27-04-9802Edizw gap [Moles/Vol]13.4 mmol/LNormalParma Community General HospitalComment on above:Performed By: #### CVDTBH #### [facility] [address] [address] [address] Johnna DixonCalcium [Mass/Vol]8.9 mg/dLNormal8.5-10.1The [facility] Comment on above:Performed By: #### CVDTBH #### [facility] [address] [place] [address] Dr. Johnna DixonChloride [Moles/Vol]106 mmol/ACintqd26-719Myz [facility] Comment on above:Performed By: #### CVDTBH #### [facility] [address] [place] [address] Dr. Johnna DixonCO2 [Moles/Vol]25.6 mmol/KEywhaj07.0-32.0[facility] Comment on above:Performed By: #### CVDTBH #### [facility] [address] [place] [address] Dr. Johnna DixonCreatinine [Mass/Vol]1.21 mg/dLNormal0.70-1.30The [facility] CenterComment on above:Performed By: #### CVDTBH #### [facility] [address] [place] [address] Dr. Johnna PichardoGFR-AF LEBANESE>60Normal>=60The [facility] CenterComment on above:Performed By: #### CVDTBH #### [facility] [address] [place] [address] Dr. Johnna PichardoGFR-NON AF EZYGORQI56 mL/min/1.93k6Wcmlsflmmx low>=60The [facility] CenterComment on above:Performed By: #### CVDTBH #### [facility] [address] [place] [address] Dr. Johnna DixonGlucose [Mass/Vol]115 mg/dLCritically nhlf69-653Bkz [facility] CenterComment on above:Performed By: #### CVDTBH #### [facility] [address] [address] [address] Johnna DixonPotassium [Moles/Vol]4.0 mmol/LNormal3.5-5.1The [facility] Comment on above:Performed By: #### CVDTBH #### [facility] [address] [place] [address] Dr. Johnna DixonSodium [Moles/Vol]141 mmol/EVkojmz398-088Hsw [facility] Comment on above:Performed By: #### CVDTBH #### [facility] [address] [place] [address] Dr. Johnna DixonUrea nitrogen [Mass/Vol]19.0 mg/dLCritically high7.0-18.0[facility] HospitalComment on above:Performed By: #### CVDTBH #### [facility] [address] [place] [address] Dr. Johnna Gerber nitrogen/Creatinine [Mass ratio]15.7 mg/mgNormalThe [facility] CenterComment on above:Performed By: #### CVDTBH #### [facility] [address] [place] [address] Dr. Johnna Ricardo 78-78-0270Wpjreehdlw [Mass/Vol]1.31 mg/dLCritically high0.70-1.30The [facility] CenterComment on above:Performed By: #### CREA #### [facility] [address] [place] [address] Dr. Johnna PichardoGFR-AF LEBANESE>60Normal>=60The [facility] CenterComment on above:Performed By: #### CREA #### [facility] [address] [place] [address] Dr. Johnna PichardoGFR-NON AF MPQLYOMU25 mL/min/1.81b9Cglimuolgl low>=60[facility] HospitalComment on above:Performed By: #### CREA #### [facility] [address] [place] [address] Dr. Johnna Russo 09-67-9426GKU NECK WO W CONEXAMINATION: CTA NECK WO [...] Electronically authenticated by: ALLI CORTES Date: 2022-08-04 14:04[facility] CAROTID ART BILon [id number] CAROTID ART BILEXAMINATION: US CAROTID ART SREEKANTH [...] Electronically authenticated by: ALLI CORTES Date: 2022-07-28 12:00[facility]XR [facility] 4V or >on 19-49-1720GI KNEE RT 4V or >EXAM: XR KNEE RT 4V or > HISTORY: Pain of right knee joint COMPARISON: None. TECHNIQUE: 4 views of the right knee were obtained. FINDINGS/IMPRESSION: 1. There is no evidence of acute fracture or subluxation. 2. Mild tricompartmental osteoarthritis is seen as demonstrated by joint space narrowing with marginal spurring. 3. Chondrocalcinosis. Electronically authenticated by: DEBORAH ZARAGOZA Date: 2022-06-30 17:38NoPomerene HospitalXR RIBS RT PA Fab [id number] RIBS RT PA CHEXAMINATION: XR RIBS RT [...] Electronically authenticated by: SOCORRO SERRANO Date: 2022-05-25 14:51NoPomerene HospitalXR RIBS RT PA Fab [id number] RIBS RT PA CH Begin Addendum #1 [...] with right basilar atelectasis and small pleural effusionGerman HospitalCT CHEST WO CONon 68-80-7437GP CHEST WO CONCT CHEST WO CON CLINICAL: [...] Electronically authenticated by: SOCORRO BANSAL Date: 2022-04-18 16:17NoPomerene HospitalCULTURE URINEon [id number] URINECulture Observations: NO GROWTH.NormalThe [facility] CenterComment on above:Performed By: #### SPUTGS #### [facility] [address] [address] [address] Johnna Elena-Leeanne Positive/NegativeOrdered By: Lionel Whitney on 64-73-0925QJYL-CoV-2 (COVID-19) N gene REX+probe Ql (Resp)NegativeNegative [facility] CenterComment on above:Testing for SARS-CoV-2 by RT-PCR This test was developed and its performance characteristics determined by [employer] and validated at the [facility]. This test has not been [...] 02-06-2022 aPTT Coag (PPP) [Time]34.8 s25.1-36.5FKettering Health PrebleBasophils Auto (Bld) [#/Vol]Ordered By: Lionel Whitney on 27-21-3881Vhkjkokhg (Bld) [#/Vol]0.0 10*3/uL0.0-0.2FKettering Health PrebleBasophils/100 WBC Auto (Bld)Ordered By: Lionel Whitney on 97-54-1979Itpdlkwfj/100 WBC (Bld)0.8 %. [facility] CenterBlood hemoglobin measurement (mass/volume) Ordered By: Lionel Whitney on 69-33-0759Cjmoitanhf (Bld) [Mass/Vol]13.2 g/dL 13.0-17.0[facility] CenterBlood leukocytes automated count (number/volume)Ordered By: Lionel Whitney on 75-05-7884QBK (Bld) [#/Vol]5.7 10*3/uL4.5-11.0[facility] CenterCreatinine and Glomerular filtration rate.predicted panel (S/P/Bld)Ordered By: Lionel Whitney on 45-78-0804Sfeplgcjxj [Mass/Vol]1.21 mg/dL0.64-1.27[facility] CenterEosinophils Auto (Bld) [#/Vol]Ordered By: Lionel Whitney on 02-06-2022 Eosinophils (Bld) [#/Vol]0.1 10*3/uL0.0-0.45[facility] Eosinophils/100 WBC Auto (Bld)Ordered By: Lionel Whitney on 02-06-2022 Eosinophils/100 WBC (Bld)1.7 %.[facility] CenterErythrocyte distribution width Auto (RBC) [Ratio]Ordered By: Lionel Whitney on 02-06-2022 Erythrocyte distribution width (RBC) [Ratio]14.2 %12.0-14.8[facility] CenterEstimated glomerular filtration rate (GFR) non- Ordered By: Lionel Whitney on 93-25-9981EPB/1.73 sq M.predicted among non-blacks MDRD (S/P/Bld) [Vol rate/Area]59 mL/MinUniversity Hospitals Cleveland Medical Center Hematocrit Auto (Bld) [Volume fraction]Ordered By: Lionel Whitney on 02-06-2022 Hematocrit (Bld) [Volume fraction]40.8 %38.8-50.0[facility] CenterLaboratory - CoagulationOrdered By: Lionel Whitney on 43-70-3233HY Coag (PPP) [Time]11.0 s9.0-12.9[facility] CenterLaboratory - Hematology and Cell countsOrdered By: Lionel Whitney on 67-64-4990Ourbsqsxk RBC/100 WBC (Bld) [Ratio]0.1 %0-0.5FKettering Health PrebleLymphocytes Auto (Bld) [#/Vol]Ordered By: Lionel Whitney on 27-81-1561Bkjvpbziszk (Bld) [#/Vol]1.6 10*3/uL1.00-4.8[facility] CenterLymphocytes/100 WBC Auto (Bld)Ordered By: Lionel Whitney on 47-64-6255Rrjvxfupqzj/100 WBC (Bld)27.4 %.[facility] CenterMCH Auto (RBC) [Entitic mass]Ordered By: Lionel Whitney on 96-36-0292HSX (RBC) [Entitic mass]29.7 pg27.5-35.2FKettering Health PrebleMCHC Auto (RBC) [Mass/Vol]Ordered By: Lionel Whitney on 78-73-9069OBQX (RBC) [Mass/Vol]32.4 g/dL32.5-35.6FKettering Health PrebleMCV Auto (RBC) [Entitic vol]Ordered By: Lionel Whitney on 28-73-9774RAB (RBC) [Entitic vol]91.6 fL83.5-101[facility] CenterMonocytes Auto (Bld) [#/Vol]Ordered By: Lionel Whitney on 40-13-5486Nwttojsla (Bld) [#/Vol]0.5 10*3/uL0.0-0.8[facility] CenterMonocytes/100 WBC Auto (Bld)Ordered By: Lionel Whitney on 43-72-2148Gwwbtamem/100 WBC (Bld)8.7 %. [facility] CenterNeutrophils Auto (Bld) [#/Vol]Ordered By: Lionel Whitney on 46-43-6849Vgxmqgrkgcs (Bld) [#/Vol]3.5 10*3/uL1.8-7.7FKettering Health PrebleNeutrophils/100 WBC Auto (Bld)Ordered By: iLonel Whitney on 37-94-4401Uvzqfjervpc/100 WBC (Bld)61.4 %.[facility] No Panel InformationOrdered By: Lionel Whitney on 91-09-4544Hpfczsemf GFR ()> 60 mL/MinUniversity Hospitals Cleveland Medical CenterComment on above: GFR estimated reference range: According to KDOQI guidelines, <60 ml/min/1.73m2 is sufficient todiagnose a patient with chronic kidney disease.Pharmacy Creatinine Clearance (ChemN/AFKettering Health PreblePlatelet mean volume Auto (Bld) [Entitic vol]Ordered By: Lionel Whitney on 33-12-0446Lyakaqqu mean volume (Bld) [Entitic vol]8.4 fL6.6-10.1FKettering Health Preble Platelet poor plasma international normalized ratio (INR) by coagulation assay (relatOrdered By: Lionel Whitney on 86-51-1633OLE Coag (PPP) [Relative time]1.0 {INR}[facility] CenterComment on above:INR Therapeutic Range A) [...] Auto (Bld) [#/Vol]Ordered By: Lionel Whitney on 07-26-2564Fqhomhdtq (Bld) [#/Vol]248 10*3/xN061-820MfdbekmenUniversity Hospitals Cleveland Medical CenterRBC Auto (Bld) [#/Vol]Ordered By: Lionel Whitney on 46-99-6665KZG (Bld) [#/Vol]4.45 10*6/uL3.90-5.60[facility] Hospitalerum or plasma calcium measurement (mass/volume)Ordered By: Lionel Whitney on 13-81-7870Fqfzrdz [Mass/Vol]9.7 mg/dL8.2-10.2FSumma Health Barberton Campuserum or plasma chloride measurement (moles/volume) Ordered By: Lionel Whitney on 61-74-2054Frejbkrj [Moles/Vol]99 mmol/L95-114 [facility] Hospitalerum or plasma glucose measurement (mass/volume)Ordered By: Lionel Whitney on 62-01-4836Atazjhb [Mass/Vol]99 mg/dL 70-100[facility] CenterComment on above:ADA recommended reference range Random Glucose Reference Range is dependent on time and content of last meal. Glucose of more than 200 mg/dL in a nonstressed, ambulatory subject supports the diagnosis of Diabetes Mellitus.Serum or plasma potassium measurement (moles/volume)Ordered By: Lionel Whitney on 06-96-5137Nebublrwk [Moles/Vol]4.4 mmol/L3.5-5.1FSumma Health Barberton Campuserum or plasma sodium measurement (moles/volume)Ordered By: Lionel Whitney on 20-09-2136Hahadm [Moles/Vol]135 mmol/M044-600MltiepiduMercy Health Fairfield Hospitalerum or plasma total carbon dioxide measurement (moles/volume)Ordered By: Lionel Whitney on 16-80-1915ZY3 [Moles/Vol]26.2 mmol/L22.0-30.0[facility] Hospitalerum or plasma urea nitrogen measurement (mass/volume)Ordered By: Lionel Whitney on 02-06-2022 Urea nitrogen [Mass/Vol]20 mg/dL9-23[facility] CenterCOVID-19 Positive/NegativeOrdered By: Lionel Whitney on 00-40-1452NMMJ-CoV-2 (COVID-19) N gene REX+probe Ql (Resp)NegativeNegativeUniversity Hospitals Cleveland Medical Center Comment on above:Testing for SARS-CoV-2 by RT-PCR This test was developed and its performance characteristics determined by [employer] and validated at the [facility]. This test has not been [...] 10-17-2021 aPTT Coag (PPP) [Time]36.2 s25.1-36.5FKettering Health PrebleBasophils Auto (Bld) [#/Vol]Ordered By: Lionel Whitney on 28-60-7645Xxhvchmuc (Bld) [#/Vol]0.0 10*3/uL0.0-0.2FKettering Health PrebleBasophils/100 WBC Auto (Bld)Ordered By: Lionel Whitney on 23-90-3084Viknvmckn/100 WBC (Bld)0.6 % [facility] CenterBlood hemoglobin measurement (mass/volume) Ordered By: Lionel Whitney on 74-50-1984Wptmmylmkz (Bld) [Mass/Vol]13.6 g/dL 13.0-17.0[facility] CenterBlood leukocytes automated count (number/volume)Ordered By: Lionel Whitney on 31-93-4107NOT (Bld) [#/Vol]5.9 10*3/uL4.5-11.0[facility] CenterCreatinine and Glomerular filtration rate.predicted panel (S/P/Bld)Ordered By: Lionel Whitney on 48-44-7509Gojyfpzgnr [Mass/Vol]0.96 mg/dL0.64-1.27[facility] CenterEosinophils Auto (Bld) [#/Vol]Ordered By: Lionel Whitney on 10-17-2021 Eosinophils (Bld) [#/Vol]0.1 10*3/uL0.0-0.45[facility] Eosinophils/100 WBC Auto (Bld)Ordered By: Lionel Whitney on 10-17-2021 Eosinophils/100 WBC (Bld)2.0 %[facility] CenterErythrocyte distribution width Auto (RBC) [Ratio]Ordered By: Lionel Whitney on 10-17-2021 Erythrocyte distribution width (RBC) [Ratio]14.5 %12.0-14.8[facility] CenterEstimated glomerular filtration rate (GFR) non- Ordered By: Lionel Whitney on 88-64-6395FER/1.73 sq M.predicted among non-blacks MDRD (S/P/Bld) [Vol rate/Area]> 60 mL/MinUniversity Hospitals Cleveland Medical Center Hematocrit Auto (Bld) [Volume fraction]Ordered By: Lionel Whitney on 10-17-2021 Hematocrit (Bld) [Volume fraction]41.5 %38.8-50.0[facility] CenterLaboratory - CoagulationOrdered By: Lionel Whitney on 67-71-3771LO Coag (PPP) [Time]11.0 s9.0-12.9[facility] CenterLaboratory - Hematology and Cell countsOrdered By: Lionel Whitney on 02-67-0734Pdlwrumde RBC/100 WBC (Bld) [Ratio]0.0 %0-0.5FKettering Health PrebleLymphocytes Auto (Bld) [#/Vol]Ordered By: Lionel Whitney on 37-89-5110Yqoxotvruxu (Bld) [#/Vol]1.6 10*3/uL1.00-4.8[facility] CenterLymphocytes/100 WBC Auto (Bld)Ordered By: Lionel Whitney on 07-94-0540Sglgjewlaws/100 WBC (Bld)26.8 %[facility] Auto (RBC) [Entitic mass]Ordered By: Lionel Whitney on 68-25-1375ZYM (RBC) [Entitic mass]29.3 pg27.5-35.2FKettering Health PrebleMCHC Auto (RBC) [Mass/Vol]Ordered By: Lionel Whitney on 41-77-4196FIPP (RBC) [Mass/Vol]32.7 g/dL32.5-35.6FKettering Health PrebleMCV Auto (RBC) [Entitic vol]Ordered By: Lionel Whitney on 39-65-8722VHE (RBC) [Entitic vol]89.8 fL83.5-101[facility] CenterMonocytes Auto (Bld) [#/Vol]Ordered By: Lionel Whitney on 46-48-6791Yqulcganf (Bld) [#/Vol]0.6 10*3/uL0.0-0.8[facility] CenterMonocytes/100 WBC Auto (Bld)Ordered By: Lionel Whitney on 16-69-7511Xbljwhrny/100 WBC (Bld)10.6 % [facility] CenterNeutrophils Auto (Bld) [#/Vol]Ordered By: Lionel Whitney on 68-64-9271Zfajodxowrt (Bld) [#/Vol]3.5 10*3/uL1.8-7.7FKettering Health PrebleNeutrophils/100 WBC Auto (Bld)Ordered By: Lionel Whitney on 06-46-1678Lxlphpmlpgs/100 WBC (Bld)60.0 %[facility] CenterNo Panel InformationOrdered By: Lionel Whitney on 71-71-5594Qhzzdaurx GFR ()> 60 mL/MinUniversity Hospitals Cleveland Medical CenterComment on above:GFR estimated reference range: According to KDOQI guidelines, <60 ml/min/1.73m2 is sufficient todiagnose a patient with chronic kidney disease.Pharmacy Creatinine Clearance (ChemN/AFKettering Health PreblePlatelet mean volume Auto (Bld) [Entitic vol]Ordered By: Lionel Whitney on 88-38-1525Dszfqhcm mean volume (Bld) [Entitic vol]8.3 fL6.6-10.1FKettering Health PreblePlatelet poor plasma international normalized ratio (INR) by coagulation assay (relatOrdered By: Lionel Whitney on 40-89-3336TMP Coag (PPP) [Relative time]1.0 {INR}[facility] CenterComment on above:INR Therapeutic Range A) [...] Auto (Bld) [#/Vol]Ordered By: Lionel Whitney on 47-23-7866Oocqcupey (Bld) [#/Vol]249 10*3/wZ558-472KfecsywbpUniversity Hospitals Cleveland Medical CenterRBC Auto (Bld) [#/Vol]Ordered By: Lionel Whitney on 18-21-7655SJI (Bld) [#/Vol]4.62 10*6/uL3.90-5.60[facility] Hospitalerum or plasma calcium measurement (mass/volume)Ordered By: Lionel Whitney on 74-08-3267Ikibehg [Mass/Vol]9.7 mg/dL8.2-10.2FSumma Health Barberton Campuserum or plasma chloride measurement (moles/volume) Ordered By: Lionel Whitney on 97-05-4352Gubwhvmp [Moles/Vol]101 mmol/L95-114 [facility] Hospitalerum or plasma glucose measurement (mass/volume)Ordered By: Lionel Whitney on 55-52-1892Luowwdm [Mass/Vol]87 mg/dL 70-100[facility] CenterComment on above:ADA recommended reference range Random Glucose Reference Range is dependent on time and content of last meal. Glucose of more than 200 mg/dL in a nonstressed, ambulatory subject supports the diagnosis of Diabetes Mellitus.Serum or plasma potassium measurement (moles/volume)Ordered By: Lionel Whitney on 71-76-1027Cdyvtslhw [Moles/Vol]4.4 mmol/L3.5-5.1FSumma Health Barberton Campuserum or plasma sodium measurement (moles/volume)Ordered By: Lionel Whitney on 38-39-0947Qofrgp [Moles/Vol]136 mmol/X498-202BsgzsncgdMercy Health Fairfield Hospitalerum or plasma total carbon dioxide measurement (moles/volume)Ordered By: Lionel Whitney on 00-48-1974DQ0 [Moles/Vol]25.6 mmol/L22.0-30.0[facility] Hospitalerum or plasma urea nitrogen measurement (mass/volume)Ordered By: Lionel Whitney on 10-17-2021 Urea nitrogen [Mass/Vol]18 mg/dL9-23[facility] Vital Signs Date TimeVital SignValuePerforming PxfdsozikFfkjhiaf68-37-4315 13:26-0400Body cujktqiinqj09.7 [degF]Norberto Andrade MD Work Phone: c[facility] HospitalXgyzgp02-66-7940 13:26-0400Body .4 kgAdaveronica Andrade MD Work Phone: c[facility] HospitalNvssvr55-61-0059 13:26-0400Diastolic blood cemuyjtw00 mm[Hg]Norberto Andrade MD Work Phone: c[facility] HospitalBnhzco41-11-7686 13:26-0400Heart rate74 /min Norberto Andrade MD Work Phone: c[facility] HospitalAsxrwc83-15-0273 13:26-0400Respiratory rate 18 /minNorberto Andrade MD Work Phone: c[facility] HospitalMphrfa43-40-8864 13:26-3095OlI4% (BldA) [Mass fraction]99 %Norberto Andrade MD Work Phone: c[facility] HospitalWdlbka63-38-3241 13:26-0400Systolic blood umicsglz538 mm[Hg]Norberto Andrade MD Work Phone: c[facility] HospitalXsmnbb53-72-9278 09:56-0400Body .9 cmMamark Bustillo PA Work Phone: [facility] HospitalFospsugixz69-35-5791 09:56-0400Body mass index (BMI) [Ratio]25.77 kg/y1Lzbazozmark Bustillo PA Work Phone: [facility] HospitalMqqosrhjcy58-13-0530 09:56-0400Body uryxxm21.18 kgMattedgar Bustillo PA Work Phone: [facility] HospitalWqnqmywyik03-46-5599 12:52-0400Body temperature 97.59 [degF]Norberto Andrade MD Work Phone: JOhio[facility] HospitalVkeoxa24-73-1466 12:52-0400Body rzqfua80.6 kgNorberto Andrade MD Work Phone: c[facility] HospitalFnrgfn07-84-6560 12:52-0400Diastolic blood aovphebr42 mm[Hg]Norberto Andrade MD Work Phone: c[facility] HospitalDsqohz69-80-3631 12:52-0400Heart rate73 /min Norberto Andrade MD Work Phone: [facility] centerand Yxawgn13-36-8794 12:52-0400Respiratory rate 18 /minNorberto Andrade MD Work Phone: [facility] centerand Oljjtg91-22-7959 12:52-8250CwB8% (BldA) [Mass fraction]97 %Norberto Andrade MD Work Phone: [facility] [facility] Aqbdtp67-29-5750 12:52-0400Systolic blood rlgytzgr831 mm[Hg]Norberto Andrade MD Work Phone: cOhio[facility] HospitalCbcsav72-77-6690 13:01-0400Body temperature 97.81 [degF]Chair Rolando Work Phone: [facility]03-12-2025 13:01-0400Diastolic blood heprtnsr25 mm[Hg]Chair Caribou Work Phone: [facility]03-12-2025 13:01-0400Heart rate65 /min Chair Rolando Work Phone: [facility]03-12-2025 13:01-0400Respiratory rate 18 /minChair Caribou Work Phone: [facility]03-12-2025 13:01-3546SxP8% (BldA) [Mass fraction]96 %Chair Caribou Work Phone: [facility]03-12-2025 13:01-0400Systolic blood usbqpoll232 mm[Hg]Chair Rolando Work Phone: [facility]03-05-2025 13:08-0500Body temperature 97.5 [degF]Chair Caribou Work Phone: [facility]03-05-2025 13:08-0500Diastolic blood mm[Hg]Chair Caribou Work Phone: [facility]03-05-2025 13:08-0500Heart rate56 /min Chair Rolando Work Phone: [place] [address]-05-2025 13:08-0500Respiratory rate 16 /minChair Caribou Work Phone: [facility]03-05-2025 13:08-9816YyI2% (BldA) [Mass fraction]99 %Chair Caribou Work Phone: [facility]03-05-2025 13:08-0500Systolic blood efzjtslv406 mm[Hg]Chair Rolando Work Phone: [place] [address]-26-2025 13:09-0500Body temperature 98.2 [degF]Norberto Andrade MD Work Phone: [place] [address]-26-2025 13:09-0500Body hcxzla73.5 kgNorberto Andrade MD Work Phone: 1(955)335-[address] [place] [address]-26-2025 13:09-0500Diastolic blood dtimexen65 mm[Hg]Norberto Andrade MD Work Phone: 1(013)592-[address] [place] [address]-26-2025 13:09-0500Heart rate86 /min Norberto Andrade MD Work Phone: 1(611)008-[address] [place] [address]-26-2025 13:09-0500Respiratory rate 16 /minNorberto Andrade MD Work Phone: 1(095)803-[address] [place], [place] [address]597[address]-26-2025 13:09-9768MhT4% (BldA) [Mass fraction]97 %Norberto Andrade MD Work Phone: c[facility] HospitalMtpevl31-41-8058 13:09-0500Systolic blood ieyoywrh889 mm[Hg]Norberto Andrade MD Work Phone: c[facility] HospitalWllvzs91-93-0548 13:00-0500Body temperature 97.81 [degF]Chair Rolando Work Phone: [place] [address]-26-2025 13:00-0500Diastolic blood bobnevid89 mm[Hg]Chair Rolando Work Phone: 1(609) 279-446143 [address]26-2025 13:00-0500Heart rate90 /min Chair Rolando Work Phone: 1(138) 764-439943 [address]26-2025 13:00-8215HvG3% (BldA) [Mass fraction]98 %Chair Rolando Work Phone: 1(430) 829-495343 [address]26-2025 13:00-0500Systolic blood hpwydynq166 mm[Hg]Chair Rolando Work Phone: [place] [address]-19-2025 13:15-0500Diastolic blood mm[Hg]Chair Rolando Work Phone: [facility] CenterComment on above:Pt reports he is asymptomatic and sees atucuxumfu59-24-9021 13:15-0500Systolic blood iqqatwwi000 mm[Hg]Chair Marshall Work Phone: [facility] CenterComment on above:Pt reports he is asymptomatic and sees -[phone] 13:10-0500Body zhtslvuewim36.9 [degF] Chair Rolando Work Phone: [facility]02-19-2025 13:10-0500Heart rate87 /min Chair Rolando Work Phone: [place] [address]-19-2025 13:10-0500Respiratory rate 18 /minChair Rolando Work Phone: [place] [address]-19-2025 13:10-3276ZlI6% (BldA) [Mass fraction]97 %Chair Marshall Work Phone: [facility]02-12-2025 08:33-0500Body temperature 97.5 [degF]Norberto Andrade MD Work Phone: c[facility] HospitalMvkgmo17-11-0688 08:33-0500Body orvvsj63.5 kgNorberto Andrade MD Work Phone: c[facility] HospitalAyqkme88-24-8665 08:33-0500Diastolic blood pwehryah30 mm[Hg]Norberto Andrade MD Work Phone: c[facility] HospitalKnsrwe41-93-0881 08:33-0500Heart rate80 /min Norberto Andrade MD Work Phone: c[facility] HospitalJqkcjz59-48-9514 08:33-0500Respiratory rate 18 /minNorberto Andrade MD Work Phone: c[facility] HospitalAtbtad07-87-8462 08:33-6229XsD2% (BldA) [Mass fraction]96 %Norberto Andrade MD Work Phone: c[facility] HospitalRvkped08-27-1277 08:33-0500Systolic blood otlnnyjt526 mm[Hg]Norberto Andrade MD Work Phone: 1(951)787-[address] [place], [place] 5597701-29-2025 10:43-0500Body temperature 97.2 [degF]Norberto Andrade MD Work Phone: 1(415)004-[address] [place], [place] 5597701-29-2025 10:43-0500Body gnuooa57.7 kgAdaveronica Andrade MD Work Phone: 1(112)852-[address] [place], [place] 5976001-29-2025 10:43-0500Diastolic blood zxiyggfw26 mm[Hg]Norberto Andrade MD Work Phone: 1(158)035-[address] [place], [place] 5976001-29-2025 10:43-0500Heart rate81 /min Norberto Andrade MD Work Phone: 1(248)717-[address] [place], [place] 5976001-29-2025 10:43-0500Respiratory rate 18 /minNorberto Andrade MD Work Phone: 1(816)903-[address] [place], [place] 559[address]01-29-2025 10:43-8061BsP6% (BldA) [Mass fraction]97 %Norberto Andrade MD Work Phone: c[facility] HospitalWroyow00-15-7935 10:43-0500Systolic blood snwiglkh016 mm[Hg]Norberto Andrade MD Work Phone: c[facility] HospitalZajmgk44-72-4828 11:17-0500Diastolic blood gghqyrir76 mm[Hg]Cady Espinosa MD Work Phone: [facility]01-27-2025 11:17-0500 Systolic blood vhyamkfp707 mm[Hg]Cady Espinosa MD Work Phone: [facility]01-27-2025 10:51-0500 Body .9 cmCady Espinosa MD Work Phone: [facility]01-27-2025 10:51-0500 Body mass index (BMI) [Ratio]26.5 kg/c3FjuhbtCady Espinosa MD Work Phone: [phone]01-27-2025 10:51-0500 Body xqyabi07.63 kgCady Espinosa MD Work Phone: [address] [place], [place] [address]01-27-2025 10:51-0500 Heart rate72 /Kathryn Espinosa MD Work Phone: [address] [place], [place] [address]01-22-2025 09:50-0500 Blood Pressure LocationPatrick WHITNEY [facility]01-22-2025 09:50-0500Diastolic blood yopoyluz61 mm[Hg]Lionel WHITNEY [facility]01-22-2025 09:50-0500Heart rate70 /minPatrick WHITNEY [facility]01-22-2025 09:50-0500Respiratory rate16 /minPatrick WHITNEY [facility]01-22-2025 09:50-0500Systolic blood erznalak392 mm[Hg]Lionel WHITNEY [facility] [place] 819221-18-2024 11:49-0500Diastolic blood qkhwaijs32 mm[Hg]Cady Espinosa MD Work Phone: [facility]11-18-2024 11:49-0500 Systolic blood ubgmwjpk396 mm[Hg]Cady Espinosa MD Work Phone: [facility]11-18-2024 11:28-0500 Heart rate67 /Kathryn Espinosa MD Work Phone: [facility]11-18-2024 11:27-0500 Body .9 cmCady Espinosa MD Work Phone: [facility]11-18-2024 11:27-0500 Body mass index (BMI) [Ratio]25.96 kg/d8WtlcxvCady Espinosa MD Work Phone: [facility]11-18-2024 11:27-0500 Body ritzvx14.82 kgCady Espinosa MD Work Phone: [facility]10-08-2024 14:58-0400 Body qgzokp315.88 cm[facility]10-08-2024 14:58-0400Body mass index (BMI) [Ratio]24.7 kg/s0JmstkoxxoUniversity Hospitals Cleveland Medical Center10-08-2024 14:58-0400Body udreyh35 kgUniversity [facility]als [facility]04-22-2024 15:27-0400 Body .88 cmMD Deandre Monterroso Work Phone: 1(532)[address]04-22-2024 15:27-0400 Body mass index (BMI) [Ratio]25 kg/m2MD Deandre Monterroso Work Phone: 1(839)[address]04-22-2024 15:27-0400 Body tmseapumtkq70.2 [degF]MD Deandre Monterroso Work Phone: 1(042)[address]04-22-2024 15:27-0400 Body bscnuu84.91 kgMD Deandre Monterroso Work Phone: 1(417)[address]04-22-2024 15:27-0400 Diastolic blood cuzyjrir87 mm[Hg]MD Deandre Monterroso Work Phone: 1(612)[address]04-22-2024 15:27-0400 Heart rate79 /minMD Deandre Monterroso Work Phone: 1(085)[address]04-22-2024 15:27-0400 Systolic blood wtussloo337 mm[Hg]MD Deandre Monterroso Work Phone: [facility]04-15-2024 10:35-0400 Blood Pressure LocationPatrick WHITNEY [facility]04-15-2024 10:35-0400Diastolic blood pckvdaqj99 mm[Hg]Lionel WHITNEY [facility]04-15-2024 10:35-0400Heart rate72 /minPatrick WHITNEY [facility]04-15-2024 10:35-0400Respiratory rate16 /minPatrick WHITNEY [facility]04-15-2024 10:35-0400Systolic blood mm[Hg]Lionel WHITNEY [facility]02-22-2024 11:10-0500Body pgkiln558.88 cmMD Deandre Hoy Work Phone: [facility]02-22-2024 11:10-0500 Body mass index (BMI) [Ratio]24.3 kg/m2MD Deandre Hoy Work Phone: [facility]02-22-2024 11:10-0500 Body bfdfzu30.19 kgMD Deandre Hoy Work Phone: [facility]08-23-2023 14:16-0400 Blood Pressure LocationMichael NILL [facility] Fhvkpxqv62-56-4338 14:16-0400Diastolic blood vjvmckso61 mm[Hg]Alex NILL [facility] Kkoecvom37-99-3381 14:16-0400Heart rate 70 /minMichael NILL [facility] Czldlbyz80-73-3749 14:16-0400 Respiratory rate16 /minMichael NILL General Surgery Qshtzhoc08-86-9507 14:16-0400Systolic blood azkveinc326 mm[Hg]Alex NILL General Surgery Xjsfrdak92-69-3372 10:20-0400Body vyiwwu644.88 cmDaja Chavez Other [employer] Other 06-15-2023 10:20-0400Body mass index (BMI) [Ratio] 25.49 kg/m2Dale Chavez Other [employer] Other 06-15-2023 10:20-0400Body .28 kgDale Chavez Other [employer] Other 05-04-2023 10:20-0400Body nauted987.88 cmDaja Chavez Other [employer] Other 05-04-2023 10:20-0400Body mass index (BMI) [Ratio] 25.63 kg/m2Dale Chavez Other [employer] Other 05-04-2023 10:20-0400Body zqywep92.73 kgDale Chavez Other [employer] Other 05-04-2023 10:20-0400Diastolic blood pedbrcpk06 mm[Hg] Zoran Chavez Other [employer] Other 05-04-2023 10:20-0400Systolic blood aorgoclp875 mm[Hg] Zoran Chavez Other [employer] Other 09-06-2022 10:43-0400[facility]09-06-2022 10:43-0400Diastolic blood upmelfmz98 mm[Hg]Lionel WHITNEY [facility]09-06-2022 10:43-0400Heart rate65 /minPatrick WHITNEY [facility]09-06-2022 10:43-0400Respiratory rate16 /minPatrick WHITNEY [facility]09-06-2022 10:43-0400Systolic blood uhmeqbbb147 mm[Hg]Lionel WHITNEY [facility]08-30-2022 15:15-0400Diastolic blood zdilrlgk29 mm[Hg]MD Deandre Monterroso Work Phone: 1(855)629-[address] [place], [place] 1453708-30-2022 15:15-0400 Heart rate58 /minMD Deandre Monterroso Work Phone: 1(424)728-[address] [place], [place] 1453708-30-2022 15:15-0400 Respiratory rate16 /min Deandre Monterroso Work Phone: [facility]08-30-2022 15:15-0400 SaO2% (BldA) [Mass fraction]95 %MD Deandre Monterroso Work Phone: [facility]08-30-2022 15:15-0400 Systolic blood ovyymxoz230 mm[Hg]MD Deandre Monterroso Work Phone: 1(640)539-[address] [place], [place] 1453708-30-2022 14:30-0400 Body utyzuu831.88 cmMD Deandre Monterroso Work Phone: [facility]08-30-2022 14:30-0400 Body mass index (BMI) [Ratio]26.2 kg/m2MD Deandre Monterroso Work Phone: [facility]08-30-2022 14:30-0400 Body kezpox08.7 kgMD Deandre Monterroso Work Phone: 1(073)[address]08-30-2022 14:17-0400 Body bgsgyzwzjzl52.6 [degF]MD Deandre Monterroso Work Phone: 1(299)[address] [place], [place] 1734708-30-2022 13:52-0400 Inhaled oxygen flow rate10 L/minMD Deandre Migeultorsten Work Phone: 1(000)[address] [place], [place] 1734704-29-2022 11:42-0400 Body xxggka193.34 cmMD Deandre Monterroso Work Phone: 1(969)[address] [place], [place] 1734704-29-2022 11:42-0400 Body mass index (BMI) [Ratio]27 kg/m2MD Deandre Monterroso Work Phone: 1(483)[address] [place], [place] 1734704-29-2022 11:42-0400 Body kmiwossxeph63.4 [degF]MD Deandre Monterroso Work Phone: 1(494)[address] [place], [place] 1734704-29-2022 11:42-0400 Body riqqnu20 kgMD Deandre Monterroso Work Phone: 1(808)[address] [place], [place] 1734704-29-2022 11:42-0400 Diastolic blood xwgjywqr05 mm[Hg]MD Deandre Monterroso Work Phone: 1(815)[address] [place], [place] 1734704-29-2022 11:42-0400 Heart rate64 /minMD Deandre Monterroso Work Phone: 1(684)[address] [place], [place] 1734704-29-2022 11:42-0400 SaO2% (BldA) [Mass fraction]100 %MD Deandre Monterroso Work Phone: 1(943)[address]04-29-2022 11:42-0400 Systolic blood cxrcytqr471 mm[Hg]MD Deandre Monterroso Work Phone: 1(150)[address] [place] [address] Encounters Encounter DateEncounter TypeCare ProviderFacilityStart: 56-03-7613vidoioookw Patrick R WATERSFacility:[facility]LEY BellevueStart: 02-27-2025 End: 99-97-5230Xmgszi flowsheetVasu Mackey MD Work Phone: no [facility] DermatologyStart: 02-27-2025 End: 80-08-2998Oqoejy flowsheetVasu Mackey MD Work Phone: no [facility]ermatologyStart: 02-27-2025 End: 80-15-1777Tqlebis encounter procedureEmalbina Mackey MD Work Phone: no [facility] DermatologyComment on above:Neoplasm of unspecified behavior of bone, soft tissue, and skin (Primary Dx); Actinic keratosisStart: 02-27-2025 End: 73-46-2319becmesiehwGWBNV A PETITTINot AvailableStart: 02-26-2025 End: 22-86-0225gyibomumkfZtzgcqk R WATERSFacility:FTMCStart: 02-26-2025 End: 90-65-8994vwyiylifxjOqvpafu R WATERSFacility:EU BellevueStart: 02-26-2025 End: 11-95-6264Cykbita encounter procedureLionel WHITNEY [facility] start: 02-05-2025 End: 09-41-9400cvodqhwzzzSwljfmy Vytautas Giedraitis Facility:[facility] [place] Start: 01-16-2025 End: 11-75-5224Ewsodc flowsheetJr. Alexandrea Colmenraes DO Work Phone: noMS [facility]opaedicsStart: 01-16-2025 End: 88-67-1395Xbhlkv flowsheetJr. Alexandrea Colmenares DO Work Phone: noms [facility]opaedicsStart: 01-16-2025 End: 64-67-0568Tuqfeu outpatient visit 15 minutesJr. Alexandrea Colmenares DO Work Phone: noms [facility] OrthopaedicsComment on above:Trochanteric bursitis of left hip (Primary Dx); Acute hip pain, leftStart: 01-16-2025 End: 79-30-9419ieelvfkwigUD., ALEXANDREA Graham AvailableStart: 12-13-2024 End: 26-97-4090Tolwoh outpatient visit 15 minutesAdarsxiomara Andrade MD Work Phone: Hematology/OncologyComment on above:Malignant neoplasm of urinary bladder, unspecified site (HCC) (Primary Dx)Start: 12-13-2024 End: 44-99-6912poaubpijkhMYUCNKP M HOYFacility:[facility] Centertart: 12-12-2024 End: 20-42-0549tetvafgmyaCHUJRBWU E PERRYFacility:EU tart: 12-12-2024 End: 39-20-2725Rxruztw encounter procedureJENNIFER E AMBREEN [facility] [place] start: 12-11-2024 End: 43-78-3899vwoddgodwhQJFLPM [facility] Start: 12-06-2024 End: 11-42-9171Rhytww flowsheetJr. Alexandrea Colmenares DO Work Phone: N[facility]S [facility] ORTHOStart: 12-06-2024 End: 70-73-4146Qnyyqu flowsheetJr. Alexandrea Colmenares DO Work Phone: noMS [facility] ORTHOStart: 12-06-2024 End: 92-81-6991Ykogqc outpatient visit 15 minutesJr. Alexandrea Colmenares DO Work Phone: noMS [facility] ORTHOComment on above:Trochanteric bursitis of left hip (Primary Dx); Acute hip pain, leftStart: 12-06-2024 End: 09-59-3081kdmzdwagsbPEALEXANDREA GALINDO AvailableStart: 12-05-2024 End: 45-98-7841gxmfvhjygySKUGFSBO E PERRYFacility:EU BellevueStart: 12-05-2024 End: 82-87-2594Pkcvajr encounter procedureJENNIFER E AMBREEN [facility] start: 11-28-2024 End: 75-79-6754yuclflryvqSKFRICMH E PERRYFacility:EU BellevueStart: 11-28-2024 End: 36-65-3589Elatrvf encounter procedureJENNIFER E AMBREEN [facility] start: 11-10-2024 End: 85-31-3418jwsfotjmvsBGSDEXT J MEYERNot AvailableStart: 11-09-2024 End: 76-89-5308pkykbmtmsbIGTKWOJ J MEYERNot AvailableStart: 10-27-2024 End: 64-54-3769Wtvfhx Shane MARES Work Phone: noms FB ORTHOPAEDICSStart: 10-27-2024 End: 84-01-2923Yqsfln Shaen MARES Work Phone: noms FB ORTHOPAEDICSStart: 10-27-2024 End: 74-78-1207xrjjoltgnoCHLDUXW J MEYERNot AvailableStart: 10-27-2024 End: 14-65-0222Tkafar outpatient visit 15 minutesMamark MARES Work Phone: noms FB ORTHOPAEDICSComment on above:Acute hip pain, left (Primary Dx)Start: 10-24-2024 End: 72-27-5048wnjfcoxjbyDxhxsyh R WATERSFacility:FTMCStart: 10-24-2024 End: 60-94-1163Eqtomnx encounter procedureLionel WHITNEY [facility] Start: 10-09-2024 End: 93-35-6133fvrntybueeKcpdigg R WATERSFacility:EU ueStart: 10-06-2024 End: 59-68-5311Nfxyxz flowsheetMamark MARES Work Phone: noms FB ORTHOPAEDICSStart: 10-06-2024 End: 88-57-9201Amubfh flowsMor MARES Work Phone: noms FB ORTHOPAEDICSStart: 10-06-2024 End: 63-28-7919livfgfivpvDPIAYGD J MEYERNot AvailableStart: 10-06-2024 End: 40-62-5516Wbjujs outpatient new 45 minutesMatthemerry MARES Work Phone: noms FB ORTHOPAEDICSComment on above:Acute hip pain, left (Primary Dx); Trochanteric bursitis of left hipStart: 09-20-2024 End: 75-93-0497Jhmpbgbvbr hospital visit by Sammie Barkley [address] [place], [place] [address]Comment on above:Chest pressure; Shortness of breathStart: 09-20-2024 End: 23-78-1952nlcaebuklaIBBDALDayton Osteopathic Hospital Start: 09-13-2024 End: 32-50-4125Dkxblut evaluation of patient and reportMa Nurse Enrique Trevino Work Phone: Hematology/OncologyComment on above:Malignant neoplasm of urinary bladder, unspecified site (HCC) (Primary Dx)Start: 09-13-2024 End: 38-24-4933Ufmviq outpatient visit 25 minutesAdarsh Raymond NOBLE Work Phone: Hematology/OncologyComment on above:Malignant neoplasm of urinary bladder, unspecified site (HCC) (Primary Dx)Start: 09-13-2024 End: 44-16-1987xmhjcvxrfpTsnml [address] [place] Work Phone: Hematology/OncologyComment on above:Malignant neoplasm of urinary bladder, unspecified site (HCC) (Primary Dx)Start: 09-11-2024 End: 91-46-7126ugekkahcshLRXZS A PETITTINot AvailableStart: 09-01-2024 End: 44-40-9364aggqqdldtqPLBRFN VENNEPUREDDYFacility:[facility] Start: 09-01-2024 End: 45-73-2109Kgqxoaqdfq hospital visit by physicianArrival Time Radiology Work Phone: Radiology Pet CTComment on above:Malignant neoplasm of urinary bladder, unspecified site (HCC) [C67.9]Start: 08-30-2024 End: 94-69-8472Rbwuwxf evaluation of patient and reportMa Nurse Enrique Trevino Work Phone: Hematology/OncologyComment on above:UTI symptoms (Primary Dx)Start: 08-30-2024 End: 39-60-5437jnwmyechddNflhw [address] [employer] Work Phone: Hematology/OncologyComment on above:Malignant neoplasm of urinary bladder, unspecified site (HCC) (Primary Dx)Start: 08-28-2024 End: 17-92-8074zzcmbebbajMjluyse Vytdanieas Giedraitis MDFacility:[facility] [place] Start: 08-23-2024 End: 86-13-2489Mbkldv-up encounterAdarsh Raymond NOBLE Work Phone: Hematology/OncologyStart: 08-23-2024 End: 13-40-4996Mxrlmvh evaluation of patient and reportMa Nurse Enrique Trevino Work Phone: Hematology/OncologyComment on above:High risk medication use (Primary Dx)Start: 08-23-2024 End: 62-05-2180mmswdyymhzQrelf [address] [place] Work Phone: Hematology/OncologyComment on above:Malignant neoplasm of urinary bladder, unspecified site (HCC) (Primary Dx)Start: 08-16-2024 End: 30-26-7011Lyqxnkn evaluation of patient and reportMa Nurse Enrique Trevino Work Phone: Hematology/OncologyComment on above:High risk medication use (Primary Dx)Start: 08-16-2024 End: 09-00-7353Bgpxxk outpatient visit 25 minutesAdarsh Raymond NOBLE Work Phone: Hematology/OncologyComment on above:Malignant neoplasm of urinary bladder, unspecified site (HCC) (Primary Dx)Start: 08-16-2024 End: 53-19-8830nqwaiszgscHngup [address] [employer] Work Phone: Hematology/OncologyComment on above:Malignant neoplasm of urinary bladder, unspecified site (HCC) (Primary Dx)Start: 08-09-2024 End: 78-28-4237Fptbyrj evaluation of patient and reportMa Nurse Enrique Trevino Work Phone: Hematology/OncologyComment on above:High risk medication use (Primary Dx)Start: 08-09-2024 End: 17-48-4973oqcjcexrhfCfkzd [address] [employer] Work Phone: Hematology/OncologyComment on above:Malignant neoplasm of urinary bladder, unspecified site (HCC) (Primary Dx)Start: 08-07-2024 End: 33-87-1864Elyfbawre encounterTifstella Ugalde RN Work Phone: Hematology/OncologyComment on above:Care Coordination (C1D1 treatment follow up call)Start: 08-07-2024 End: 36-43-6505qifnmlqobhAvebxlb Vytautas Giedraitis MDFacility:MIRIAN Reilly Start: 08-02-2024 End: 48-23-1274Ubhytdn evaluation of patient and reportMa Nurse Enrique Trevino Work Phone: Hematology/OncologyComment on above:Malignant neoplasm of urinary bladder, unspecified site (HCC) (Primary Dx)Start: 08-02-2024 End: 00-07-3716nqfdfnvvsgFltxo [employer] Work Phone: Hematology/OncologyComment on above:Malignant neoplasm of urinary bladder, unspecified site (HCC) (Primary Dx)Start: 08-02-2024 End: 29-51-6217Eazwhi outpatient visit 25 minutesAdarsh Raymond NOBLE Work Phone: Hematology/OncologyComment on above:Malignant neoplasm of urinary bladder, unspecified site (HCC) (Primary Dx)Start: 08-01-2024 End: 71-13-6030Diwdpwcyt encounterFinancial Navigator Enrique Work Phone: Hematology/OncologyComment on [...] feel free to stop in or call [phone] for any questions you may have. )Start: 07-26-2024 End: 78-30-2626GgwwcmMendel Vargas [facility] Work Phone: Hematology/OncologyComment on above:Malignant neoplasm of urinary bladder, unspecified site (HCC) (Primary Dx)Start: 07-19-2024 End: 33-20-5894kyvzvgrjheNUDCEX VENNEPUREDDYFacility:[facility] Start: 07-19-2024 End: 71-23-2646Yviwee outpatient new 60 minutesNorberto Andrade MD Work Phone: Hematology/OncologyComment on above:Malignant neoplasm of urinary bladder, unspecified site (HCC) (Primary Dx)Start: 07-18-2024 End: 70-62-9892Rfkmz Magnolia Andrade MD Work Phone: Hematology/OncologyStart: 07-17-2024 End: 46-13-8839Nftutk outpatient visit 25 minutesCady Espinosa MD Work Phone: [facility] SystemComment on above:Uncontrolled hypertension; Unequal blood pressure in upper extremities; Mixed hyperlipidemia; Former smoker; Bilateral carotid artery stenosis; History of prostate cancer; Hx of bladder cancer; Medication course changed; Chest pressure; Shortness of breath; BMI 26.0-26.9,adultStart: 07-17-2024 End: 98-67-9749rqdcppikhrCDCVOAHealthAlliance Hospital[facility] AmbulatoryStart: 07-12-2024 End: 87-34-4514cswbdfgsloWvuazif R WATERSFacility:EU [place]kyStart: 07-12-2024 End: 82-47-6266Qoyjcdl encounter procedureLionel WHITNEY [facility] Start: 07-06-2024 End: 90-36-6947qbbdiexztvNriudvr M Hoy MD Work Phone: [facility] Work Phone: Start: 07-06-2024 End: 77-64-5402Fnlhtrsm ReferredDeandre Monterroso MD Work Phone: [facility] [place] [facility]Start: 07-[facility]2024 End: 89-42-3907qpeinvbunjOewasku R WATERSFacility:CD:[id number]: 07-03-2024 End: 10-07-3581rqouhanbtqNdcpxfh Vytautas Giedraitis MDFacility:[facility] [place] Start: 06-09-2024 End: 81-05-1301Kzociexqau hospital visit by physicianTania Marshall Echo/Vas Room 2[facility] CenterComment on above:Left carotid bruit; Unequal blood pressure in upper extremitiesFormer smoker; Shortness of breathStart: 06-09-2024 End: 60-26-6070zqgstyrdyxCOKSCEWright-Patterson [facility] Start: 06-05-2024 End: 10-77-8013hbfmeobvdlHshixzw Vytautas Giedraitis MDFacility:[facility] [place] Start: 05-29-2024 End: 99-63-4349rknjhuqrknQwliqzw Vytautas Giedraitis MDFacility:[facility] [place] Start: 05-22-2024 End: 23-44-9557Hig Drop Maury WHITNEY [facility] [facility] Start: 05-22-2024 End: 25-52-7698cuyjnlhddqRqqqxtt R WATERSFacility:FTMCStart: 05-22-2024 End: 15-52-9453Fqfrnkj encounter procedureLionel WHITNEY [facility] start: 05-09-2024 End: 62-56-9030wyqhqugoouRtrzfrf R WATERSFacility:FTMCStart: 05-09-2024 End: 31-22-0817Lysthmq encounter procedureLionel WHITNEY [facility] Start: 05-08-2024 End: 36-74-4209Uznaro consultation new/estab patient 61 Kathryn Espinosa MD Work Phone: uh FirelandsComment on above:Unequal blood pressure in upper extremities; Uncontrolled hypertension; Shortness of breath; Mixed hyperlipidemia; History of prostate cancer; Hx of bladder cancer; History of fractured rib; Former smoker; BMI 25.0-25.9,adult; Medication course changedStart: 05-08-2024 End: 19-09-5182qekfqxqisqSOXMWWHiggins General Hospital AmbulatoryStart: 04-10-2024 End: 67-44-8265ntrlcebtdzLupdgoxTomás Landa MDFacility:[facility] Start: 03-28-2024 End: 18-72-7695kjevdysbjyTaexfewmjOhioHealth [facility]in [facility] Work Phone: Start: 03-28-2024 End: 49-28-1445Lghxinf encounter procedureCommunity Health Physician [facility] Neurosurgery Work Phone: start: 03-27-2024 End: 96-58-6148qlwvfkxbhoEiacnfxTomás Landa MDFacility:[facility] Start: 10-26-2023 End: 98-63-1064Shbshxe encounter Betsy WHITNEY [facility] Start: 10-11-2023 End: 91-41-4680othtvnzkqzXG Deandre M Hoy Work Phone: [facility] Work Phone: Start: 10-11-2023 End: 06-64-5361Fhwmicz encounter procedureMD Deandre Hoy Work Phone: [facility] Work Phone: Start: 10-04-2023 End: 71-14-2616Nqdggiv encounter procedurePasantiago WHITNEY [facility] start: 08-28-2023 End: 87-09-0413Kbifilg encounter procedureMD Deandre Hoy Work Phone: [facility] [place] Work Phone: Start: 08-28-2023 End: 86-02-0396ictfcpcceoXhnptkg M HoyFacility:[facility] Start: 08-12-2023 End: 06-55-1218Eqeakpu encounter procedureMD Deandre Hoy Work Phone: [facility] [place] Work Phone: Start: 08-12-2023 End: 57-70-3576rlddildmrtAR Deandre M Hoy Work Phone: [facility] Work Phone: Start: 08-12-2023 End: 68-47-6748rgjljdmabqYU Deandre M Hoy Work Phone: [facility] Work Phone: Start: 08-12-2023 End: 15-85-6437Looqcac encounter procedureMD Deandre Hoy Work Phone: [facility] Work Phone: start: 04-27-2023 End: 43-46-2036Pvoikgo encounter procedureLionel WHITNEY [facility] Start: 02-10-2023 End: 83-53-3592Yzxfxzt encounter procedureMichael R NILL General Surgery Nill/[facility] [place] Start: 01-05-2023 End: 96-13-1992Alyfbch encounter procedurePatrick R DEVONTE [facility] Start: 01-01-2023 End: 89-32-2788bgdjfdtsflPZ Deandre Monterroso Work Phone: [facility] Work Phone: Start: 01-01-2023 End: 45-74-5559Bkjlybe encounter procedureMD Deandre Monterroso Work Phone: [facility] [place] Work Phone: Start: 12-03-2022 End: 92-49-8204rpaqmpgypfGdty Braun Other [employer] Other start: 51-96-7574Snlbgl outpatient visit 15 minutes [facility] [place] NeurosurgeryStart: 06-55-8130ctjkjzsnjcSBCIYFR GIEDRAITISFacility:Z5Mpjhn: 10-28-2022 End: 42-84-9645xrhresfqioSJ JIHAD ABBASFacility:D4Ojfbx: 10-27-2022 End: 75-29-9762avemsrisdeVQ ZORAN BRAUNFacility:K4Jqxnc: 10-23-2022 End: 96-95-7209bdphqujtxkNT ZORAN BRAUNFacility:M6Ckfph: 10-22-2022 End: 31-86-5940ddoremdxzbXkwj Scott Other [employer] Other start: 48-21-0714Xbbzfy outpatient visit 15 minutes [facility] NeurosurgeryStart: 10-05-2022 End: 73-22-7126fnceajjcyvZR DEANDRE HOY .Facility:D6Yyhyx: 09-24-2022 End: 92-84-5899ygssnqxrotLL DEANDRE HOY .Facility:D1Pdxkb: 09-21-2022 End: 63-37-5606jrbsyxlxcyWE LIONEL WHITNEY .Facility:F2Zbrhz: 09-21-2022 End: 86-31-0651Anwjert encounter procedurePatricjuan luis WHITNEY [facility] start: 08-19-2022 End: 51-14-6368zbqcpuhmslTN LIONEL WHITNEY .Facility:A0Rlpfv: 08-17-2022 End: 88-49-0385Vfzutde encounter procedurePatricjuan luis WHITNEY [facility] start: 08-04-2022 End: 41-34-7095lxazbmdzymTT DEANDRE HOY .Facility:W2Ogfhe: 07-28-2022 End: 67-68-2910ojynfxnstzTW DEANDRE HOY .Facility:S2Yzjej: 07-23-2022 End: 86-13-2100hqdcuzqvixTD LIONEL WHITNEY .Facility:P4Ndgau: 07-20-2022 End: 39-21-9042Etvokfi encounter procedurePasantiago WHITNEY [facility] Start: 07-07-2022 End: 00-01-7067Woqapnv encounter procedurePatricjuan luis WHITNEY [facility] Start: 06-30-2022 End: 66-22-7947mdizfxfskaLJ DEANDRE HOY .Facility:G0Dvqqn: 06-04-2022 End: 38-78-0307ibrbvqmdggSM DEANDRE HOY .Facility:E6Kpcax: 05-25-2022 End: 11-75-1020cloyvvocnjMS DEANDRE CUBAY .Facility:N8Nfied: 05-18-2022 End: 29-12-0523Oqhmflp encounter procedurePasantiago WHITNEY [facility] start: 04-27-2022 End: 52-29-5591hohnbnrttlLF DEANDRE MONTERROSO .Facility:L8Qmhyf: 04-18-2022 End: 45-54-3118dbkfwacjstOA FELICIA GALDAMEZ .Facility:S9Axpkp: 04-15-2022 End: 72-64-5508Gmzgffx encounter procedurePasantiago WHITNEY [facility] start: 03-26-2022 End: 63-91-9107kzixcxzkffGC LIONEL WHITNEY .Facility:Q9Shwbd: 03-12-2022 End: 10-97-1097rhfuthipfyEU DEANDRE MONTERROSO .Facility:E6Xekvp: 03-09-2022 End: 15-53-1569Yaanvss encounter procedurePasantiago WHITNEY [facility] start: 02-27-2022 End: 54-08-6248Gbl Drop offLionel WHITNEY [facility] Start: 02-27-2022 End: 29-64-9322Dfmzqgk encounter procedurePatricjuan luis WHITNEY [facility] start: 02-24-2022 End: 66-80-1777Wcccqby encounter procedurePatricjuan luis WHITNEY [facility] Start: 02-17-2022 End: 81-76-2850Mmymixgcz to same day surgery centerMD Deandre Hoy Work Phone: [facility]Start: 02-13-2022 End: 83-45-0097Wzbcxxx encounter procedureMD Deandre Hoy Work Phone: [facility] Start: 02-06-2022 End: 83-81-6652Ysqncvn encounter procedureMD Deandre Hoy Work Phone: [facility] Start: 11-11-2021 End: 41-62-7600Unjoyhl encounter procedurePasantiago Burgos WHITNEY [facility] Start: 11-05-2021 End: 56-66-1268Eenalyn encounter procedurePatricjuan luis Burgos WHITNEY [facility] [place] Start: 10-29-2021 End: 24-95-4361Fmjwedyew to same day surgery centerMD Deandre Hoy Work Phone: [facility] CampusStart: 10-27-2021 End: 37-48-3648Flwtqnk encounter procedureMD Deandre Hoy Work Phone: [facility] Klf-Tfl-Cojywifd Testing Start: 10-17-2021 End: 63-80-2237Wybuqyp encounter procedureMD Deandre Hoy Work Phone: [facility] Procedures DateProcedureProcedure DetailPerforming ClinicianStart: 84-97-7016YFTWQUVZPJR SKIN LESIONEmily Vee Mackey MD Work Phone: Start: 70-24-1648SQYN / NAIL BIOPSYEmalbina Mackey MD Work Phone: Start: 56-49-3700VeqssqxqejCzqdyer WHITNEY Start: 30-39-4022Cjgrykmthieidk aspir&/inj major jt/bursa w/o usMatthew Beka MARES Work Phone: Start: 94-41-4098Ct strs tst xers&/or rx cont ecg trcg onlyCady Espinosa MD Work Phone: Start: 22-27-4546Lbzwb dip stick/tablet rgnt auto w/o microscopyNorberto Andrade MD Work Phone: start: 75-32-5511Kezhc dip stick/tablet rgnt auto w/o microscopyCcf ProviderStart: 69-52-8714Gzvvg dip stick/tablet rgnt auto w/o microscopyCcf ProviderStart: 03-48-2137Lyyhd dip stick/tablet rgnt auto w/o microscopyCcf ProviderStart: 60-52-3796Utnehzoyxrntj resection of bladder neoplasmFltrick WHITNEY Start: 64-04-6929Sguvmc scan extracranial art compl bi studyCady Espinosa MD Work Phone: Start: 99-67-5825Zhou tthrc r-t 2d w/wom-mode compl spec&colr dGcameron Espinosa MD Work Phone: Start: 29-75-0702Ets routine ecg w/least 12 lds w/i&r Cady Espinosa MD Work Phone: Start: 03-20-6438MXM of cervical spine with contrastMD Deandre Monterroso Work Phone: Start: 90-99-0705C-ray of lumbar spine, six views including bending viewsMD Deandre Hoy Work Phone: Start: 93-50-4040U-ray of cervical spineMD Deandre Hoy Work Phone: Start: 32-27-2896Manjlyplmxunm cystoscopyPajames b. haggin memorial hospitaljuan luis WHITNEY Start: 11-85-3236Wkkrficysstim resection of bladder neoplasmPatrick DEVONTE Start: 54-63-4738CW lumbar spine wo conMD Deandre Monterroso Work Phone: Start: 52-62-8633TFN screeningDR JAYLEENPRESTONRicarda Daley on above:Performed By: #### PSAD #### [facility] [address] [place] [address] Dr. Oropeza Start: 32-34-5209Hsadyprgwkylg resection of bladder neoplasmMD Deandre Hoy Work Phone: [phone]-art: 79-62-6598Aqbiywwltmzrz resection of bladder neoplasmPatrick DEVONTE Start: 16-79-5011Efrhcdozemdds resection of bladder neoplasmMD Deandre Hotorsten Work Phone: [phone]-: 16-66-4121Jflxbikgib radiography of abdomenMD Deandre Monterroso Work Phone: [phone]-art: 02-66-6414Kkwnjyvfuxvxs resection of bladder neoplasmPatrick DEVONTE Start: 83-04-5088Wdeqf chest X-rayMD Deandre Monterroso Work Phone: [phone]-art: 92-21-7461Dliesufccqwiqsqkg with dilation of urethral stricturePatrick DEVONTE Start: 94-06-4409Ojlkak of umbilical herniaPatrick WHITNEY Comment on above:Umbilical hernia repair with mesh ( assisted with robot)Start: 59-99-4471Jgitpejbcyo of shoulderPatrick WHITNEY Comment on above:LEFT SHOULDER ARTHROSCOPIC, CHONDROPLASTY,DEBRIDEMENT OF PARTIAL ROTATOR CUFF TEAR, REMOVAL RETAINED SUTURE Start: 81-46-9213shflnkaqm fifth partial metatarsal osteotomies and Silver Tailor's bunionectomiesPatrick [employer] information technology Start: 26-02-7381Mgvfyeu prostatectomyPatrick WHITNEY Start: 41-15-6334Plytork perineal prostatectomyAdventhealth ManchesterDerbyJackpot Comment on above:[facility]: 85-50-5951VwdcwntjeyqYhapast NILL Start: 32-50-3980Evnfiomz repair of rotator cuffPatrick DEVONTE Comment on above:rightStart: 04-55-3164Wsbkivjw reconstructionPatrick DEVONTE Comment on above:left possibly a screw in there per pt Start: 00-82-1597QjeeyckpxurlKyhnwsv DEVONTE arthroplasty of the anklePatrick DEVONTE Comment on above:1988, 1990Arthroscopy of kneePatrick DEVONTE [phone]-Ovcl sequence (disorder)Lioneljameel WHITNEY Plan of Treatment DateCare ActivityDetailAuthorStart: 23-52-5609MIgN/Tdap/Td Vaccines (3 - Td or Tdap)DTaP/Tdap/Td Vaccines (3 - Td or Tdap)[facility] Start: 47-66-3275Elzmn microalbumin profileDTaP,Tdap,Td Vaccine (3 - Td or Tdap) [facility] Hospitaltart: 32-86-7442Qizwprus ScreeningDiabetes ScreeningHocking Valley Community Hospitaltart: 37-30-4095Memxbjvq ScreeningDiabetes ScreeningChillicothe Va Medical Center Start: 24-46-1565Fzuvseth ScreeningDiabetes ScreeningHocking Valley Community Hospitaltart: 42-22-4619Zicttzmc ScreeningDiabetes ScreeningHammond ClinicStart: 2026 RSV Vaccine (1 - 1-dose 75+ series)RSV Vaccine (1 - 1-dose 75+ series)[facility] Hospitaltart: 09-11-2025 End: 09-86-7481Zyzgstz encounter procedureNOMS SWS DERMStart: 07-17-2025 End: 38-38-9431Bbigfrk encounter fvwfsymxp69/27/2026 10:00 AM EST Office Visit [facility] [place] [place] [address] Jr. Alexandrea Colmenares, DO [address] [facility] [address] [place] [address] NOMRozina [facility] OrthopaedicsStart: 02-27-2025 End: 90-48-0135Scadupm encounter yiyblpgmc97/09/2025 11:15 AM EDT Office Visit [facility] [place] [facility] [address] [place], [phone] Vasu Mackey MD [address] [place] [address] ArrivedNOMS [place] DermatologyComment on above:ArrivedStart: 94-24-7094Myiqzpnes vaccinationHocking Valley Community Hospitaltart: 01-16-2025 End: 48-70-1428Hcutrlo encounter procedureNOMS FB ORTHOPAEDICSComment on above: ArrivedStart: 01-01-2025 End: 38-68-9502Kbaouvc encounter cqqhgjomq25/14/2025 10:45 AM EDT Office Visit [facility] [address] [facility] [address] [place] [address] Cady Espinosa MD [address] [facility] [address] [place] [address] [facility]Start: 12-13-2024 End: 40-64-0412Dlgplwruz (Vitamin B12) [Mass/volume] in Serum or PlasmaHammond ClinicComment on above:Expected: 12/13/2024, Expires: 03/14/2025Start: 12-13-2024 End: 70-02-0455Pzxyigld [Mass/volume] in Serum or [facility] Work Phone: comment on above:Expected: 12/13/2024, Expires: 03/14/2025Start: 12-13-2024 End: 19-20-7599Zbmujs [Mass/volume] in Serum or PlasmaChillicothe Va Medical CenterComment on above:Expected: 12/13/2024, Expires: 03/14/2025Start: 12-13-2024 End: 97-47-4712Nvzk and Iron binding capacity panel - Serum or PlasmaChillicothe Va Medical CenterComment on above:Expected: 12/13/2024, Expires: 03/14/2025Start: 12-13-2024 End: 96-67-8388Almfpi-up pexqxvffi06/25/2025 1:00 PM EDT Visit (SP) Office Hematology/Oncology [address] [place], [place] [phone] Norberto Andrade MD [address] [place] [address] 3 month follow upHematology/OncologyComment on above:3 month follow upStart: 12-13-2024 End: 53-61-6847Klkeerr encounter mihvqvpah40/25/2025 12:45 PM EDT Office Visit [facility] [address] [place] [address] [place] [address] 3 month follow upNortVeterans Affairs Medical Center LaboratoryComment on above:3 month follow upStart: 12-06-2024 End: 48-40-3469Pwbfgjj encounter kxixkbtgg72/18/2025 8:45 AM EDT Office Visit [facility] [address] [place] [phone] Jr. Alexandrea Colmenaers, [address] [facility] [address] [place] [address] ArrivedNOTEMECULA VALLEY HOSPITAL ORTHOComment on above: ArrivedStart: 11-16-2024 End: 02-41-3434Clohxno encounter qmodvvjvv09/29/2025 10:45 AM EDT Appointment [facility] [address] [facility] [address] [place] [phone] [facility] HealthStart: 11-10-2024 End: 59-20-9294Fyxeauo encounter wifadvbpz73/23/2025 9:45 AM EDT Office Visit [facility] [address] [place] [phone] Karen Bustillo PA [address] [facility] [address] [place] [address] N[facility] FB ORTHOPAEDICSStart: 10-27-2024 End: 43-17-2585LH Hip - left WO contrastMR hip left wo IV contrast Imaging Routine Acute hip pain, left Expected: 10/27/2024 (Approximate),Expires: 10/27/2025[facility] Work Phone: Comment on above:Expected: 10/27/2024 (Approximate), Expires: 10/27/2025Start: 10-27-2024 End: 44-36-2525Tajcjtn encounter yztkyxxtg19/09/2025 9:45 AM EDT Office Visit [facility] [address] [place] [address] Karen Bustillo PA [address] [facility] [address] [place] [address] NOMS ORTHOPAEDICSStart: 09-13-2024 End: 55-29-6340Bwxcyhu evaluation of patient and wyqees1509/13/2024 2:00 PM EDT Nurse Visit Hematology/Oncology [address] [place] [address] [place] [address] Bruno Trevino Nurse Enrique [address] [place] [address] UA to rule ogUTIHematology/OncologyComment on above:UA to rule og UTI Start: 09-13-2024 End: 11-80-6138xkwbhdesyu56/26/2025 1:00 PM EDT Infusion Center Hematology/Oncology [address] [place] [address] BCG Hematology/OncologyComment on above:BCGStart: 09-13-2024 End: 99-51-4727Zgiuse-up dpyoaxvvb42/26/2025 1:00 PM EDT Visit (SP) Office Hematology/Oncology [address] [place], [place] [phone] Norberto Andrade MD [address] [place] [address] 4 week lab follow up w/ BCGHematology/OncologyComment on above:4 week lab follow up w/ BCGStart: 09-13-2024 End: 11-05-1417Jcgiftl encounter dokasigsi71/26/2025 12:45 PM EDT Office Visit [facility] [address] [place] [address] 4 week lab follow up w/ BCGNorth [facility]iac [facility] Hospital LaboratoryComment on above:4 week lab follow up w/ BCGStart: 09-06-2024 End: 08-72-4779Dybdzcm evaluation of patient and dezyde0509/06/2024 2:00 PM EDT Nurse Visit Hematology/Oncology [address] [place] [address] [place] [address] Bruno Trevino Nurse Enrique [address] [place] [address] UA to rule ogUTIHematology/OncologyComment on above:UA to rule og UTI Start: 09-06-2024 End: 95-74-3279cpqbhvuqrg82/19/2025 1:00 PM EDT [facility] Hematology/Oncology [address] [place] [address] [place] [address] New start Intravesical BCGHematology/OncologyComment on above:New start Intravesical BCGStart: 09-01-2024 End: 57-04-7824Maoiphw encounter uetzakfzo22/14/2025 1:15 PM EDT Appointment Radiology Pet CT [address] [place] [address] CT CAP W IV Radiology Pet CTComment on above:CT CAP W IVStart: 08-31-2024 End: 45-25-8021Qmnuezw encounter procedureUH Linette ReillylandsStart: 08-31-2024 End: 42-38-5656Pvqouzp encounter procedureUH Linette ReillylandsStart: 08-30-2024 End: 18-71-3639Yngrnku evaluation of patient and kehxcp3808/30/2024 2:30 PM EDT Nurse Visit Hematology/Oncology [address] [place] [address] Bruno Trevino Nurse Enrique [address] [place] [address] UA to rule ogUTIHematology/OncologyComment on above:UA to rule og UTI Start: 08-30-2024 End: 67-79-6473ZE Abdomen and Pelvis W contrast IVCT ABD/PEL W IVCON Radiology Routine Malignant neoplasm of urinary bladder, unspecified site (HCC) Expected: 08/30/2024, Expires: 09/15/2025[facility] Work Phone: comment on above:Expected: 08/30/2024, Expires: 09/15/2025Start: 08-30-2024 End: 77-52-6949IL Chest W contrast IVCT CHEST W IVCON Radiology Routine Malignant neoplasm of urinary bladder, unspecified site (HCC) Expected: 08/30/2024, Expires: 09/15/2025[facility] ClinicComment on above:Expected: 08/30/2024, Expires: 09/15/2025Start: 08-30-2024 End: 53-20-9441velvbewammBhlwznfhmt/OncologyComment on above:New start Intravesical BCGBCGStart: 08-23-2024 End: 62-13-9607Vwilonm evaluation of patient and reportHematology/Oncology Comment on above:UA to rule og UTIUA to rule out UTIStart: 08-23-2024 End: 27-96-4486dzwmzhstioPthmpzkurh/OncologyComment on above:New start Intravesical BCGBCGStart: 08-16-2024 End: 21-98-4846Qgsexlj evaluation of patient and reportHematology/Oncology Comment on above:UA to rule og UTIUA to rule out UTI (no orders)Start: 08-16-2024 End: 54-94-8631JGC W Auto Differential panel - BloodCOMPLETE BLOOD COUNT AND DIFFERENTIAL Lab Routine Malignant neoplasm of urinary bladder, unspecified site (HCC) Expected: 08/16/2024 (Approximate), Expires: 11/15/2024[facility] Work Phone: comment on above:Expected: 08/16/2024 (Approximate), Expires: 11/15/2024Start: 08-16-2024 End: 31-40-9505Ocdzcqeudfpwl metabolic 2000 panel - Serum or PlasmaCOMPREHENSIVE METABOLIC PANEL Lab Routine Malignant neoplasm of urinary bladder, unspecified site (HCC) Expected: 08/16/2024 (Approximate), Expires: 11/15/2024[facility] ClinicComment on above:Expected: 08/16/2024 (Approximate), Expires: 11/15/2024 Start: 08-16-2024 End: 35-96-5164Bpjupeil specific Ag [Mass/volume] in Serum or PlasmaPROSTATE- SPECIFIC ANTIGEN DIAGNOSTIC Lab Routine Malignant neoplasm of urinary bladder, unspecifiedsite (HCC) Expected: 08/16/2024 (Approximate), Expires: 11/15/2024 [facility] CenterComment on above:Expected: 08/16/2024 (Approximate), Expires: 11/15/2024Start: 08-16-2024 End: 32-73-7853ufmwostijoZaalzyqgzp/OncologyComment on above:New start Intravesical BCGBCGStart: 08-16-2024 End: 38-99-2503Xwuuhd-up ratqxjprr36/26/2025 1:00 PM EST Visit (SP) Office Hematology/Oncology [address] [place] [address] [place] [phone] Norberto Andrade MD [address] [place] [address] [place] [address] 2 week lab follow upHematology/OncologyComment on above:2 week lab follow upStart: 08-16-2024 End: 43-89-5143Aygpvga encounter tnemfvklp62/26/2025 12:45 PM EST Office Visit [facility] [address] [place] [address] 2 week lab follow upNortVeterans Affairs Medical Center LaboratoryComment on above:2 week lab follow upStart: 08-09-2024 End: 74-50-8242Zojmyci evaluation of patient and tdewop7808/09/2024 2:00 PM EST Nurse Visit Hematology/Oncology [address] [place] [address] Bruno Trevino Nurse Enrique [address] [place] [address] UA to rule ogUTIHematology/OncologyComment on above:UA to rule og UTI Start: 08-09-2024 End: 93-59-1011ujjgetxauuRkeiffychf/OncologyComment on above:New start Intravesical BCGBCGStart: 08-08-2024 End: 01-47-3410Kyrbfqv aminotransferase [Enzymatic activity/volume] in Serum or Plasma by With P-5'-PAlanine Aminotransferase Lab Routine Mixed hyperlipidemia Expected: 08/08/2024, Expires: 05/08/2025[facility] Work Phone: Comment on above:Expected: 08/08/2024, Expires: 05/08/2025Start: 08-08-2024 End: 78-27-3102Kpaehuydi aminotransferase [Enzymatic activity/volume] in Serum or Plasma by With P-5'-PAspartate Aminotransferase Lab Routine Mixed hyperlipidemia Expected: 08/08/2024, Expires: 05/08/2025[facility] Work Phone: Comment on above:Expected: 08/08/2024, Expires: 05/08/2025Start: 08-08-2024 End: 76-60-5110Ldivb 1996 panel - Serum or PlasmaLipid Panel Lab Routine Mixed hyperlipidemia Expected: 08/08/2024, Expires: 05/08/2025[facility]Sal[facility] Work Phone: Comment on above:Expected: 08/08/2024, Expires: 05/08/2025Start: 08-02-2024 End: 27-64-4969Vqzodnu evaluation of patient and xzfwjy0308/02/2024 9:00 AM EST Nurse Visit Hematology/Oncology [address] [place] [address] Bruno Trevino Nurse Enrique [address] [place] [address] UA to rule ogUTIHematology/OncologyComment on above:UA to rule og UTI Start: 08-02-2024 End: 22-72-9441kfwaaptpqc68/12/2025 8:30 AM EST Infusion Center Hematology/Oncology [address] [place] [address] New start Intravesical BCGHematology/OncologyComment on above:New start Intravesical BCGStart: 08-02-2024 End: 10-33-2413Synpfa-up vbfgtvlxo41/12/2025 8:30 AM EST Visit (SP) Office Hematology/Oncology [address] [place], [place] [phone] Norberto Andrade MD [address] [place] [address] Follow upHematology/OncologyComment on above:Follow up Start: 08-02-2024 End: 50-67-1745Yqrygfo encounter vgsuygxtz03/12/2025 8:15 AM EST Office Visit [facility] [address] [place] [address] labNortVeterans Affairs Medical Center LaboratoryComment on above:labStart: 07-26-2024 End: 45-46-7416Lpkjede evaluation of patient and fghhyi4907/26/2024 11:00 AM EST Nurse Visit Hematology/Oncology [address] [place] [address] [place] [address] [phone] Ingrid Ugalde, RN [address] [place] [address] Chemo EducationHematology/OncologyComment on above:Chemo EducationStart: 07-19-2024 End: [id number] W Auto Differential panel - BloodCOMPLETE BLOOD COUNT AND DIFFERENTIAL Lab Routine Malignant neoplasm of urinary bladder, unspecified site (HCC) Expected: 07/19/2024, Expires: 10/18/2024[facility] Work Phone: comment on above:Expected: 07/19/2024, Expires: 10/18/2024Start: 07-19-2024 End: 76-42-8216Nriotxcciyamm metabolic 1999 panel - Serum or PlasmaCOMPREHENSIVE METABOLIC PANEL Lab Routine Malignant neoplasm of urinary bladder, unspecified site (HCC) Expected: 07/19/2024, Expires: 10/18/2024[facility] ClinicComment [facility] above:Expected: 07/19/2024, Expires: 10/18/2024Start: 07-19-2024 End: 39-27-1192jxwofpfiwf02/29/2025 11:00 AM EST Visit (SP) Office Hematology/Oncology [address] [place] [address] [place] [address] Norberto Andrade MD [address] [place] [address] [place] [address] Lionel Whitney. Dx: Bladder CA. will need #6 BCG treatments after Jul 27.Hematology/OncologyComment on above: Referred by Dr. Lionel Whitney. Dx: Bladder CA. will need #6 BCG treatments after Jul 27.Start: 07-17-2024 End: 77-42-4475Tlvoqkvyzqlvr metabolic 1999 panel - Serum or PlasmaComprehensive Metabolic Panel Lab Routine Medication course changed Chest pressure Shortness of breath Expected: 07/17/2024 (Approximate), Expires: 07/17/2025[facility] Work Phone: Comment on above:Expected: 07/17/2024 (Approximate), Expires: 07/17/2025Start: 07-17-2024 End: 53-35-9190Ftfpm 1996 panel - Serum or PlasmaLipid Panel Lab Routine Uncontrolled hypertension Mixed hyperlipidemia Medication course changed Exp ected: 07/17/2024 (Approximate), Expires: 07/17/2025[facility] Work Phone: Comment on above:Expected: 07/17/2024 (Approximate), Expires: 07/17/2025Start: 07-17-2024 End: 04-27-7008ND Heart Perfusion W stress and W radionuclide IVNuclear Stress Test Cardiac Nuclear Medicine Routine Chest pressure Shortness of breath Expected: 07/17/2024 (Approximate), Expires: 07/17/2025[facility] Work Phone: Comment on above:Expected: 07/17/2024 (Approximate), Expires: 07/17/2025Start: 07-17-2024 End: 00-70-5078HP.doppler Carotid arteries - bilateralVascular US Carotid Artery Duplex Bilateral Vascular Ultrasound Routine Bilateral carotid artery stenosis Chest pressure Shortness of breath Expected: 07/17/2024 (Approximate), Expires: 07/17/2026[facility] Service Area Work Phone: Comment on above:Expected: 07/17/2024 (Approximate), Expires: 07/17/2026Start: 07-17-2024 End: 97-05-7277Wqnncma encounter qqxuvgzrb24/27/2025 10:45 AM EST Office Visit [address] [place] [address] Cady Espinosa MD [address] [facility] [address] [place], [place] [id number] [facility] SystemStart: 68-82-6228Femmvjk Directive Discussion Advance Directive DiscussionHocking Valley Community Hospitaltart: 01-01-2025Medicare Advantage Annual Wellness VisitMedicare Advantage Annual [facility]Ch[facility] Start: 06-08-2024 End: 94-92-7298Xljaysb encounter bkksssvyj27/19/2024 10:45 AM EST Appointment [address] [place] [address] [facility]: [facility] End: 08-00-4172Ahqdx metabolic 2000 panel - Serum or PlasmaBasic Metabolic Panel Lab Routine Uncontrolled hypertension Expected: 05/15/2024 (Approximate), Expi res: 05/08/2025[facility] Work Phone: Comment on above:Expected: 05/15/2024 (Approximate), Expires: 05/08/2025Start: 05-08-2024 End: 86-48-8758MB Heart TransthoracicTransthoracic Echo Complete Echocardiography Routine Former smoker Shortness of breath Expected: 05/08/2024 (Approximate), Expires: 05/08/2026[facility] Service Area Work Phone: Comment on above:Expected: 05/08/2024 (Approximate), Expires: 05/08/2026Start: 60-02-4638Xlzgg-19 Vaccine ( season)Covid- 19 Vaccine ()[facility]: 23-39-2263XOPJT-19 Vaccine ( season)COVID-19 Vaccine ( season)[facility]: 50-92-7122Zdbosfgyr vaccinationInfluenza Vaccine (#1)[facility]: 99-07-5700Lsbfwuq referralHolzer [facility] – [facility] Work Phone: Start: 96-97-1598J-ray of cervical spineXR cervical spine w flex/extMercy Health Fairfield Hospitaltart: 98-51-0035V-ray of lumbar spine, six views including bending viewsXR lumbar spine 6V w bending [facility] Hospitaltart: 33-79-8357CF Cervical spine Views W flexion and W extensionMercy Health Fairfield Hospitaltart: 27-27-3750PB Lumbar spine ViewsMercy Health Fairfield Hospitaltart: 02-17-2022 End: 22-69-7277GhqjdudygMemorial Hospital Work Phone: Start: 57-74-9730Nppycqjqloyye resection of bladder neoplasmOR Cysto/TURBT/Bladder Biopsy/Fulg (Not Applicable)[facility] Hospitaltart: 02-17-2022 End: 35-79-2300Ugonjzjma to same day surgery centerDeparted Surgical Day Care [facility] CampusStart: 02-13-2022 End: 63-63-4901Hzwwykb encounter procedureDeparted ClinicalMemorial Hospital-Pre-Surgical TestingStart: 75-64-7369Kcwhvdbul aortic aneurysm screeningAbdominal Aortic Aneurysm (AAA) ScreeningAccess Hospital [facility]: 91-25-2004NAA High Risk: (Elderly (60+) or Population) (1 - Risk 60-74 years 1-dose series)RSV High Risk: (Elderly (60+) or Population) (1 - Risk 60-74 years 1-dose series)[facility]: 22-34-0668FLW Vaccine (1 - Risk 60-74 years 1-dose series)RSV Vaccine (1 - Risk 60-74 years 1-dose series)[facility]: 02-03-1996 Diabetes ScreeningDiabetes ScreeningHocking Valley Community Hospitaltart: 40-28-4656Tguinjgwu for malignant neoplasm of colonHocking Valley Community Hospitaltart: 16-17-7658Rmibn panelLipid ScreeningHocking Valley Community Hospitaltart: 18-61-8958Chkpofg ScreeningAnxiety Screening [facility]tart: 25-33-8385Gdyxpiufni ScreeningDepression Screening [facility]rt: 70-31-6075Hojaaewo mellitus screeningDiabetes Screening [facility]: 05-16-9455Fbagjsgvo C screeningHepatitis C ScreeningAccess Hospital [facility]: 93-89-2538Zbrepovmn aortic aneurysm screeningAbdominal Aortic Aneurysm ScreeningKettering Health [facility]: 56-19-2195Xayxg panelLipid PanelAccess Hospital [facility]: 1951Medicare Annual Wellness VisitMedicare Annual Wellness Visit (AWV) [facility]: 44-28-8919Bkujnlxyu for malignant neoplasm of colonAccess Hospital [facility]: 13-54-8696Wlckhjb stimulating hormone measurementTSBone and Joint Hospital – Oklahoma CityCT Abdomen and Pelvis W contrast IVCT ABD/PEL W IVCON Radiology Routine Malignant neoplasm of urinary bladder, unspecified site (HCC) 09/01/2024 3:07 PM EDT [facility] Work Phone: ct Chest W contrast IVCT CHEST W IVCON Radiology Routine Malignant neoplasm of urinary bladder, unspecified site (HCC) 09/01/2024 3:07 PM EDTCcleveland clinic [facility] ClinicDermatopathology examDermatopathology exam Pathology and Cytology Timed Neoplasm of unspecified behavior of bone, soft tissue, and skin Release Upon Ordering for 1 Occurrences starting 02/27/2025[facility] Work Phone: comment on above:Release Upon Ordering for 1 Occurrences starting 02/27/2025Microbial culture of sputumUniversity Hospitals [facility] Medical CenterMR Cervical spine WO and W contrast [facility] CenterPatient referralMemorial Hospital Work Phone: UA DIP OB, URINE (POC)UA DIP OB, URINE (POC) Lab Routine Malignant neoplasm of urinary bladder, unspecified site (HCC) 1 O ccurrences starting [address] [place] [address] Work Phone: comment on above:1 Occurrences starting 08/09/2024UA DIP OB, URINE (POC)UA DIP OB, URINE (POC) Lab Routine Malignant neoplasm of urinary bladder, unspecified site (HCC) 1 Occurrences starting 09/13/2024 [facility] CenterComment on above:1 Occurrences starting 09/13/2024UA DIP, URINE (POC)UA DIP, URINE (POC) Lab Routine Malignant neoplasm of urinary bladder, unspecified site (HCC) Ordered: [address] [place] [address] Work Phone: Comment on above:Ordered: 08/02/2024UA DIP, URINE (POC)UA DIP, URINE (POC) Lab Routine Malignant neoplasm of urinary bladder, unspecified site (HCC) Ordered: [address] [place] [address] on above: Ordered: 08/09/2024UA DIP, URINE (POC)UA DIP, URINE (POC) Lab Routine Malignant neoplasm of urinary bladder, unspecified site (HCC) Ordered: [address] [place] [address] Work Phone: comment on above:Ordered: 08/16/2024UA DIP, URINE (POC)UA DIP, URINE (POC) Lab Routine Malignant neoplasm of urinary bladder, unspecified site (HCC) Ordered: [address] [place] [address] Work Phone: commghg on above:Ordered: 08/30/2024UA DIP, URINE (POC)UA DIP, URINE (POC) Lab Routine Malignant neoplasm of urinary bladder, unspecified site (HCC) Ordered: [address] [place] [address] Work Phone: comdqzo on above:Ordered: 09/13/2024 Immunizations Immunization DateImmunizationNotesCare RaiqgtxhTkwnbidl41-77-0810oshwvkil calmette-dena vaccineJENNIFER AMBREEN [facility]06-17-2025bacillus calmette-dena vaccineJENNIFER AMBREEN [facility]06-11-2025bacillus calmette-dena vaccineJENNIFER AMBREEN [facility]02-24-2025influenza virus vaccine, unspecified formulationJr. Stepanic DO Work Phone: [facility] HospitalLkvdtclntm45-21-9169jjhhcd vaccine recombinant Lionel [employer] information technology [facility]10-03-2023influenza virus vaccine, unspecified formulationPaTheron Pharmaceuticals [facility]10-03-2023zoster vaccine recombinantPatrick uma information technology [facility]10-27-2022Moderna Bivalent Booster VaccinationKaren MARES Work Phone: [facility] HospitalWyohnckcfq91-19-5776FDFW-ZxH-0 (COVID-19) mRNAMUL.ORD!f41213Kjxkhbu NILL [facility] Hospitaly10-07-2022influenza virus vaccine, unspecified formulationMichael NILL [facility] [place] 8[address]220-07-2022Influenza, High-dose Seasonal, Quadrivalent, Preservative Free Karen MARES Work Phone: [facility] HospitalLrzjvbsqew46-04-8827JXVLH-89 mRNA-1273 (Moderna) MD Deandre Monterroso Work Phone: [facility]04-01-2021COVID-19 mRNA-1273 (Huma)MD Deandre Monterroso Work Phone: [facility] [place] [facility] CenterComment on above: Result Comment: 2023-01-20: HHS8201-23-5355PGLXW-05 mRNA-1273 (Modernvee)MD Deandre Monterroso Work Phone: [facility] [place] [facility] CenterComment on above: Result Comment: 2023-01-20: MPQ1642-01-5940FEJO-SpB-7 (COVID-19) mRNA-1273 vaccinePatrick WHITNEY [facility] 12909306-72-1799ezrhcnqhb virus vaccine, unspecified formulationMichael NILL [facility] [place] 819222-03-2020Influenza, Seasonal, Quadrivalent, AdjuvantedMamark MARES Work Phone: [facility] HospitalJwucnhwucg99-78-3562fyusknopc virus vaccine, unspecified formulationMichael NILL [facility] [place] 819220-14-2020influenza, high dose seasonal, preservative-freeMamark MARES Work Phone: [facility] HospitalStbmrkqleb22-29-3769cgcrhngcy virus vaccine, unspecified formulationMichael NILL [facility] [place] 819222-09-2019Seasonal, quadrivalent, recombinant, injectable influenza vaccine, preservative freeMamark MARES Work Phone: [facility] HospitalPdarwbdgkx64-16-7350zcuisdxxt, injectable, quadrivalent, preservative Sakshi Andrade MD Work Phone: [address] [address]Simsuh75-60-0464nxcaaswib virus vaccine, unspecified formulationNorberto Andrade MD Work Phone: cc[facility] medical centerand Urwrpj35-31-6161khinjbjua, unspecified formulationMichael NILL [facility]04-08-2019tetanus and diphtheria toxoids, adsorbed, preservative free, for adult use (2 Lf of tetanus toxoid and 2 Lf of diphtheria toxoid)Alex NILL [facility]04-23-2018pneumococcal polysaccharide vaccine, 23 valentMichael NILL [facility]02-01-2017pneumococcal conjugate vaccine, 13 valentMichael NILL [facility]01-09-2014tetanus toxoid, reduced diphtheria toxoid, and acellular pertussis vaccine, adsorbedMichael NILL [facility]09-20-2000Td(adult) unspecified formulationMichael NILL [facility] Payers DatePayer CategoryPayerPolicy ID2025Medicare [id number]-aal [id number] 2021Medicare (Managed Care) [id number].[id number] 1.2.840.031995.1.13.159.2.7.3.931976.315 [id number] 2.16.840.1.36603[id number] 2.16.840.1.811175.3.579.2.593 30-02-5821Njtslzj5021637 2.16.840.1.809770.3.579.2.52349-49-7777Alljanf7153486 2.16.840.1.782122.3.579.2.51483-17-1167Ippkpki3469613 2.16.840.1.339947.3.579.2.55323-06-1992Krbvvym1618201 2.16.840.1.702294.3.579.2.25178-31-2619Kydxmbl9736553 2.16.840.1.305999.3.579.2.34646-18-8515Kmdkqnw4501347 2.16.840.1.475151.3.579.2.82271-34-9555Tjirhpc0539910 2.16.840.1.713082.3.579.2.22810-44-1713Hqqyxnl8703230 2.16.840.1.122231.3.579.2.61050-12-7470Maikcuh4849387 2.16.840.1.723663.3.579.2.81726-98-9615Dmyejly8801692 2.16.840.1.553243.3.579.2.00903-22-3470Ucuvidj9797655 2.16.840.1.589931.3.579.2.59127-49-8421Cojdvza2910090 2.16.840.1.338931.3.579.2.40919-23-5470Kylvdly2730369 2.16.840.1.307946.3.579.2.59084-35-1005Qpsappb2171801 2.16.840.1.617020.3.579.2.67039-20-8676Cmunkla6908229 2.16.840.1.380321.3.579.2.69485-94-6738Pjtsntk0825763 2.16.840.1.828023.3.579.2.63448-39-4840Qapatat5119965 2.16.840.1.594679.3.579.2.50274-19-3805Btlntfd4311243 2.16.840.1.793624.3.579.2.62553-42-2643Qavghab75522365 2.16.840.1.841199.3.579.2.94368-41-3750Koqggqk91489498 2.16.840.1.764940.3.579.2.13356-41-9683Ymoxraj14849915 2.16.840.1.448281.3.579.2.868813-73-6173Wgjrnuq74361487 2.16.840.1.767994.3.579.2.803855-20-3177Luervej82678579 2.16.840.1.154245.3.579.2.118273-65-0766Idmyjfi95054597 2.16.840.1.356205.3.579.2.516586-60-1122Wzqnipz60779296 2.16.840.1.849938.3.579.2.215230-75-4263Hctkgdr03055687 2.16.840.1.337821.3.579.2.634568-37-6306Cuxwpgf52384427 2.16.840.1.177546.3.579.2.741302-69-1071Zcygsuf786876413 2.840.1.687329.3.579.2.761360-17-4585Wtiwgjf316000636 2.840.1.764848.3.579.2.483595-94-3151Rxdlfxn686596368 2.16.840.1.926246.3.579.2.02207-79-5761Bnkhpni493105032 2.840.1.351141.3.579.2.48041-99-1768Pvgrmvq881057327 2.84.1.841106.3.579.2.88848-37-6380Mrebbua276098765 2.840.1.636784.3.579.2.39920-43-2360Llrmput259141976 2.840.1.831942.3.579.2.24795-91-2834Rhbmbvx025098161 2.840.1.496143.3.579.2.95422-74-6285Hxdmjxb500909474 2.840.1.796191.3.579.2.97224-18-9548Zqkhraj938492789 2.840.1.376092.3.579.2.12936-16-0955Jovijqt28542654 2.840.1.360606.3.579.2.59468-44-5921Kixkbaa18357930 2.840.1.631472.3.579.2.05087-82-7336Dxuomzu16672499 2.840.1.187846.3.579.2.509683-50-4104Qsaatbc97462460 2.16.840.1.152654.3.579.2.657718-72-1462Bxxxezt07033383 2..840.1.144085.3.579.2.528308-54-9009Rnfitbr1469489 2.16.840.1.502832.3.579.2.240237-41-4651Uoiehff8447043 2..840.1.871596.3.579.2.643903-20-2493Vgubtrj1445010 2..840.1.408616.3.579.2.560774-59-7445Zngnemg1992580 2.840.1.514898.3.579.2.159663-77-0510Hemotaj4081816 2.0.1.382089.3.579.2.537169-12-9337Dachnqs58430547 2.840.1.870030.3.579.2.42933-92-1592Iqxthzx40386051 2.840.1.161741.3.579.2.06022-65-3456Tqaftxj40701783 2.0.1.336281.3.579.2.55587-29-0178Ydyrysj34735623 2.840.1.204893.3.579.2.99747-98-8741Zwmpvuo20459518 2.840.1.400283.3.579.2.90018-59-7187Dcbuopy39750179 2.840.1.873518.3.579.2.15729-43-5841Gnvlifj91103066 2.840.1.647008.3.579.2.62933-85-4956Dzilvjx46205670 2.16840.1.170009.3.579.2.00939-41-7105Upwrdxr97944068 2..840.1.768344.3.5[id number] 0489y5of-g2ud-51c4-18q3-z3im93k34pl3Wcfkzjw Health ZuvvhnuwwX80264651 q89369dz-1w0v-6aqr-9581-2ez20y2hnn29ZppbkztLwtvxouxh [facility] HospitalTwlhmepxpD2022792043 5o637251-1qp3-3442-2ww4-63u3a17ro662Rmcsaon89856663 2.16.840.1.166048.3.579.2.093Paeeine76022845 2.0.1.510473.3.579.2.531 Qwgtfwg18524113 2.0.1.470409.3.579.2.531 Social History DateTypeDetailFacilityStart: 10-17-2021 End: 62-90-9841Zvrryws smoking status NHISEx-smoker (finding)[facility] CenterComment on above:pt quit smoking 10+ yrs agoStart: 44-96-3824Rsm [facility] At [facility]: 13-39-6867Cdferpa smoking statusNever smoked tobacco (finding)[facility] Tobacco smoking statusNeverExec[facility] of [facility] Comment on above:pt quit smoking 10+ yrs agoStart: 05-08-2024 End: 18-13-7728Wlf Assigned At [facility] End: 30-23-0233Pceottj of tobacco useCurrent smokerWVUMedicine Harrison Community Hospital Work Phone: End: 87-78-2641Imlqghx of tobacco useCigarette SmokerWVUMedicine Harrison Community Hospital Work Phone: Start: 01-12-2023 End: 26-04-5463Zqtbeqk use and exposureSmokeless tobacco non-userWVUMedicine Harrison Community Hospital Work Phone: Start: 05-08-2024 End: 25-29-9514Qnxxxbval beverage intakeCurrent drinker of alcohol (finding) [facility] Work Phone: Start: 05-08-2024 End: 84-21-4017Vhcjchf of Social functionUnSalem City Hospital Work Phone: Start: 08-88-6973Mqamcxv CommentsociallyWVUMedicine [facility] Hospital Work Phone: Start: 87-09-1077Edq assigned at birthNot on file [facility] Work Phone: Start: 04-28-2024 End: 24-11-6313Eswxxpdx to SARS-CoV-2 (event)Not sureWVUMedicine Harrison Community HospitalStart: 09-09-2018 End: 85-56-7877RzfTxyc (finding)[facility]tart: 32-43-3520Yrubnnj Commentcaffeine 3-4 cups per dayNOMS HealthcareSexual OrientationDiley Ridge Medical Center Medical Equipment Procedure CodeEquipment CodeEquipment Original TextEquipment IdentifierDates Transurethral resection of bladder tumor (TURBT) with cystoscopyPolymeric ureteral stent()[id number] FDAStart: 48-48-2159Hnlzjdrqidqmq, spine, cervical, posterior approachBone-screw internal spinal fixation system, non-sterile()[id number] FDAStart: 10-18-7433Wuttxpvbokxvy, spine, cervical, posterior approachBone-screw internal spinal fixation system, non-sterile()[id number] FDAStart: 12-76-0034Kbtmiyligkueg, spine, cervical, posterior approachBone-screw internal spinal fixation system, non-sterile()[id number] FDAStart: 40-53-0541Izzrupghzdosh, spine, cervical, posterior approachBone-screw internal spinal fixation system, non-sterile()[id number] FDAStart: 41-28-4297Tcewotimtjuzg, spine, cervical, posterior approachBone-screw internal spinal fixation system, non-sterile()[id number] FDAStart: 04-18-2020 Goals DatePatient GoalDesired Activity/State Functional Status ZcitLqzwuhmhwkPqaytbHgbnszgu38-20-4077Lesouselmq StatusN/[facility]01-22-2025Functional StatusN/AExec[facility] of [place] 819221-19-2024Functional StatusN/[facility] 69-54-9675Otkonxthps StatusN/[facility]04-15-2024Functional StatusN/A[facility]11-07-2023 Functional StatusN/[facility]08-23-2023Functional StatusN/A General Surgery Adtugzsx11-88-3916Aiipjsdaml StatusN/[facility]09-06-2022Functional StatusN/AExec[facility] Clinical Notes 11-04-2021 to 02-27-2025 Note Date & NhvkZfecFcavguuu75-11-2742 History of Present illness Narrative* Vasu Mackey [...] limited to risks of scarring, darker or commercial agent pigmentary changes, recurrence, incomplete removal and infection. [...] Next Visit: as scheduled documented in this encounterCooper County Memorial HospitalTcwgbaqysg77-37-9002 Hospital Discharge instructions Patient Education 02/26/2025 08:49:06 [...] if anything looks unusual. Males with a zhttwh-bllc-hndcyr risk for skin cancer may want to see a skin care technician (slurry plant operator) for an annual body check. Where to find more information [place] [employer]: cancer.org Centers for Disease Control and Prevention: cdc.gov National Cancer Carson: cancer.gov Contact a health care provider if: [...] provider. Document Revised: 06/15/2023 Document Reviewed: 12/28/2022 [employer] Patient Education 2023 WHMSOFT. Follow Up Care 10/24/2024 10:44:10 With:DEVONTE NOBLE, Lionel Burgos, URL Address: [address] [place] [id number] When: Unknown Comments:3 mos for cysto/bt ck [facility] 09-08-2025 NotePatient Education Oncology Cancer Screening for [...] if anything looks unusual. Males with a gxejuf-bnfz-hodxxw risk for skin cancer may want to see a skin care technician (dermatologi (more content not included)...[facility]07-29-2025 History of Present illness Narrative* Jr. [...] NO PT PAIN MGMT; MULTIPLE INJ TRIED COMPUTER SYSTEMS ARCHITECT; SOME TEMP RELIEF PT DISCONTINUED DICLOFENAC DUE TO HIS AFTERSCHOOL- WONDERING WHAT ELSE HE COULD TAKE-C/O LATERAL [...] HOME MEDICATIONS: Current Outpatient Medications Medication Instructions Yithdfeuxsd-Qufxlddxm-Zgtonn (Trelegy Ellipta) 100-62.5-25 MCG/ACT aerosol powder Inhale. [...] length. He has been taking omega XL zora-dkm-tiasvxk and had good relief with this. We [...] for requiring urgent evaluation. documented in this encounterCooper County Memorial HospitalLimibawwaa97-04-2178 NotePatient Education Oncology Bladder Cancer Bladder cancer [...] Follow these instructions at home: ??? Take xbag-ary-cuobdly and prescription medicines only as told by [...] important. Where to find more information ??? [place] [employer] (ACS): cancer.org ??? National Cancer Carson (NCI): cancer.gov Contact a health care provider [...] This information is n (more content not included)...[facility] 12-13-2024 Instructions* Patient Instructions* Norberto Andrade MD - 12/13/2024 1:46 PM EDT Blood work today F/u with Urology . documented in this encounterChillicothe [facility] Center06-25-2025 History of Present illness Narrative* Norberto Andrade MD - 12/13/2024 1:00 PM EDT Images from the original note were not included. PATIENT NAME: Mary Diaz CLINIC NO.: [id number] ATTENDING PHYSICIAN: Norberto Andrade MD DATE OF SERVICE: 12/13/[address] Lionel Whitney [address] [facility] [address] thank you for referring Mary Diaz for [...] atleast 1 fragment without obvious stromal invasion (desk officer). 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 Urology recommended induction [...] tablet by mouth at bedtime as needed. teldavraymd-uaiztryae-fipmreps (TRELEGY ELLIPTA) 100-62.5-25 mcg inhalation powder = [...] Take 100 mg by mouth as needed. dehdegnmkch-sajwvvcrs-shpynedf (TRELEGY ELLIPTA) 100-62.5-25 mcg inhalation powder Inhale [...] Range Status 09/13/2024 8.7 % Final Abs [place] Date Value Ref Range Status 09/13/2024 0.72 [...] atleast 1 fragment without obvious stromal invasion (desk officer). 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 - Urology recommended [...] here if needed. Dear Dr. Lionel Whitney [address] [place] [address] thank you for allowing me to participate in [facility], if there are any questions or concerns please do not hesitate to contact me at the number below. I spent a total of 20 minutes on the date of the service which included preparing to see the patient, fdbk-zi-bcva patient care, completing clinical documentation, obtaining and/or reviewing separately obtained history, performing a medically appropriate examination, counseling and educating the pat ient/family/caregiver, ordering medications, tests, or procedures, communicating with other HCPs (not separately reported), independently interpreting results (not separately reported), communicatingresults to the patient/family/caregiver, and care coordination (not separately reported). Norberto Andrade MD. Hematology/Medical Oncology [facility] [phone] CC: documented in this encounterChillicothe Va Medical Center06-25-2025 NoteHNO ID: [id number] Author: NORBERTO ANDRADE MD Service: ? Author Type: Physician Type: Progress Notes Filed: 12/13/2024 14:20 Note Text: PATIENT NAME: [facility] NO.: [id number] ATTENDING PHYSICIAN: Norberto Andrade MD DATE OF SERVICE: 12/13/[address] Lionel Whitney [address] [place] [address] thank you for referring Mary Diaz for [...] atleast 1 fragment without obvious stromal invasion (desk officer). 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 Urology recommended induction [...] tablet by mouth at bedtime as needed. cvxirzdypcy-kprwqpmib-qojokqph (TRELEGY ELLIPTA) 100-62.5-25 mcg inhalation powder = [...] Take 100 mg by mouth as needed. wlqowypuiku-dfcpqxcxi-uuzisztg (TRELEGY ELLIPTA) 100-62.5-25 mcg inhalation powder Inhale [...] SHOULDER SURGERY HX Reconstructi (more content not included)...[facility]06-23-2025 NoteUT Cardiology - [facility] Subjective Mary Diaz is a 74 y.o. year old male patient being seen for to establish care as a new patient. Per patient he has been seeing another Microarray Specialist for [facility], Patient states he has had numerous test and has not been told the results and has been given medication and knows nothing as to why he is taking these medication. Patient states he is here for a second opinion. Patient was sent to cardiology by MEDICAL CARE EVALUATION SPECIALIST for uncontrolled hypertension. Patient Active Problem List [...] 75 mg EC tabl (more content not included)...[facility]06-18-2025 History of Present illness Narrative* Bradford [...] NO PT PAIN MGMT; MULTIPLE INJ TRIED COMPUTER SYSTEMS ARCHITECT; SOME TEMP RELIEF S/P CORTISONE INJ - [...] 200 mg, Oral, Daily, Take with food Lubuphkrbbj-Nzfgokevw-Tjohpc (Trelegy Ellipta) 100-62.5-25 MCG/ACT aerosol powder Inhale. [...] for requiring urgent evaluation. documented in this encounterCooper County Memorial HospitalAukjqnpuhu84-57-6706 Hospital Discharge instructions Patient Education 12/05/2024 09:58:02 [...] cells. Follow these instructions at home: Take rlae-wiq-exozeet and prescription medicines only as told by [...] is important. Where to find more information [place] [employer] (ACS): cancer.org National Cancer Carson (NCI): cancer.gov Contact a health care provider [...] provider. Document Revised: 05/18/2022 Document Reviewed: 05/18/2022 [employer] Patient Education 2023 WH[employer]FT. Follow Up Care 11/20/2024 11:57:52 With:AMBREEN HELMS, LAUREN Higginbotham, URL Address: [address] [place] [address] When:Within 1 Week(s) [facility] 06-17-2025 NotePatient Education Oncology Bladder Cancer Bladder [...] Follow these instructions at home: ??? Take gcrq-uth-navisau and prescription medicines only as told by [...] important. Where to find more information ??? [place] [employer] (ACS): cancer.org ??? National Cancer Carson (NCI): cancer.gov Contact a health care provider [...] This information is n (more content not included)...[facility] 11-29-2024 NotePatient Education Oncology Bladder Cancer [...] Follow these instructions at home: ??? Take krjz-uno-nhgvbra and prescription medicines only as told by [...] important. Where to find more information ??? [place] [employer] (ACS): cancer.org ??? National Cancer Carson (NCI): cancer.gov Contact a health care provider [...] This information is n (more content not included)...[facility] 10-27-2024 History of Present illness Narrative* [...] INJ 10/06/24 PAIN MANAGEMENT; MULTIPLE INJ TRIED COMPUTER SYSTEMS ARCHITECT; SOME TEMP RELIEF CONTINUES TO HAVE LATERAL [...] requiring urgent evaluation. Visit was preformed using [employer]'s pilot speech recognition. documented in this encounterCooper County Memorial HospitalEmsbpcprbd20-49-5572 Hospital Discharge instructions Patient Education 10/24/2024 10:28:54 [...] Up Care 09/04/2024 13:08:22 With:Lionel WHITNEY Address: [address] [place], [place] [address] Business (1) When: Unknown Comments:Office will call to schedule follow up [facility] [phone] NotePatient Education Custom Cystoscopy ??? Voiding after [...] if you have a fever over 100 degrees.[facility] 10-09-2024 NotePatient Education Urology Cystoscopy Cystoscopy [...] including vitamins, herbs, eye drops, creams, and qque-mpr-gmczmrv medicines. ??? Any problems you or family [...] tells you to take them. ??? Taking muqt-ahb-jlydfvd medicines, vitamins, herbs, and supplements. Tests You [...] these instructions at home: Medicines ??? Take ukpc-jzv-nqlwmov and prescription medicines only as told by [...] testing (biopsy) during your (more content not included)...[facility]04-18-2025 History of Present illness Narrative* SUZAN [...] NO MRI PAIN MANAGEMENT; MULTIPLE INJ TRIED COMPUTER SYSTEMS ARCHITECT; SOME TEMP RELIEF C/O PAIN LATERAL HIP-CONSTANT [...] requiring urgent evaluation. Visit was preformed using [employer]'s pilot speech recognition. documented in this encounterCooper County Memorial HospitalGggaktxgwa35-98-9844 NoteHNO ID: [id number] Author: JEFFREY BABB RN Service: ? Author [...] free for discharge when finished. Jeffrey Babb RNLake[facility]03-26-[facility] History of Present illness Narrative* Jeffrey Babb [...] finished. Jeffrey Babb, NATHALIE documented in this encounterChillicothe Va [facility] Center03-26-2025 NoteHNO ID: [id number] Author: SUZANNA WATERS MA Service: ? Author Type: Dual Rate Dealer Type: Progress Notes Filed: 09/13/2024 13:46 Note Text: UA performed as ordered. [facility] History of Present illness Narrative* Suzanna Waters MA - 09/13/2024 1:45 PM EDT UA performed as ordered. Suzanna Waters MA documented in this encounterChillicothe Va Medical Center03-26-2025 Instructions* Patient Instructions* Norberto Andrade MD - 09/13/2024 1:09 PM EDT Last BCG treatment today Labs today F/u with urology F/u in 3 months documented in this encounterChillicothe Va Medical Center03-26-2025 History of Present illness Narrative* Norberto Andrade MD - 09/13/2024 1:00 PM EDT Images from the original note were not included. PATIENT NAME: Mary Diaz [facility] NO.: [id number] ATTENDING PHYSICIAN: Norberto Andrade MD DATE OF SERVICE: 09/13/[address] Lionel Whitney [address] [facility] [address] thank you for referring aMry iDaz for an opinion regarding non muscle invasive [...] atleast 1 fragment without obvious stromal invasion (desk officer). 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 Urology recommended induction [...] tablet by mouth at bedtime as needed. etvkrenqnwt-llbzmvzod-ocxhbjom (TRELEGY ELLIPTA) 100-62.5-25 mcg inhalation powder = [...] Take 100 mg by mouth as needed. ddajhjsjcjo-djakywubc-pjfpuodu (TRELEGY ELLIPTA) 100-62.5-25 mcg inhalation powder Inhale [...] Range Status 08/16/2024 8.8 % Final Abs Amite Date Value Ref Range Status 08/16/2024 0.96 [...] atleast 1 fragment without obvious stromal invasion (desk officer). 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 - Urology recommended [...] Dear Dr. Lionel Whitney [address] [place] [address] thank you for allowing me to participate in Mary Diaz care, if there are any questions or concerns please do not hesitate to contact me at the number below. I spent a total of 30 minutes on the date of the service which included preparing to see the patient, hohh-hr-glbk patient care, completing clinical documentation, obtaining and/or reviewing separately obtained history, performing a medically appropriate examination, counseling and educating the pat ient/family/caregiver, ordering medications, tests, or procedures, communicating with other HCPs (not separately reported), independently interpreting results (not separately reported), communicatingresults to the patient/family/caregiver, and care coordination (not separately reported). Norberto Andrade MD. Hematology/Medical Oncology [facility] [place] [phone] CC: documented in this encounterChillicothe Va Medical Center03-26-2025 NoteHNO ID: [id number] Author: NORBERTO ANDRADE MD Service: ? Author Type: Physician Type: Progress Notes Filed: 09/13/2024 13:18 Note Text: PATIENT NAME: Mary Diaz CLINIC NO.: [id number] ATTENDING PHYSICIAN: Norberto Andrade MD DATE OF SERVICE: 09/13/[address] Lionel Whitney [address] [place] [address] thank you for referring Mary Diaz for [...] atleast 1 fragment without obvious stromal invasion (desk officer). 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 Urology recommended induction [...] tablet by mouth at bedtime as needed. vveuwsbdfeb-qziwhwbze-hkrgjicz (TRELEGY ELLIPTA) 100-62.5-25 mcg inhalation powder = [...] Take 100 mg by mouth as needed. ymotjeyuckf-jmzijzzwn-hmyprlsm (TRELEGY ELLIPTA) 100-62.5-25 mcg inhalation powder Inhale [...] changes in hear (more content not included)... [facility]03-14-2025 History of Present illness Narrative* Porsha Smith [...] PATIENT PRESENTS WITH AN IMPLANTABLE OR ATTACHED LEAD NURSE: No RADIOLOGY DEPARTMENT: CT; Exam(s) Completed: Chest Abdomen Pelvis PERIPHERAL IV DATA: Site assessment: Clean,Dry and Intact, Site disposition Discontinued SIGNED BY: STEVE Ca) September 01, 2024 3:08 PM documented in this encounterChillicothe Va Medical Center03-14-2025 NoteHNO ID: [id number] Author: REJI FUENTES RT(R) Service: ? Author [...] PATIENT PRESENTS WITH AN IMPLANTABLE OR ATTACHED LEAD NURSE: No RADIOLOGY DEPARTMENT: CT; Exam(s) Completed: Chest Abdomen Pelvis PERIPHERAL IV DATA: Site assessment: Clean,Dry and Intact, Site disposition Discontinued SIGNED BY: RT Roby(Aubrey) September 01, 2024 3:08 [facility]03-14-2025 NoteHNO ID: [id number] Author: PORSHA SMITH RN Service: ? Author [...] Diaz DATE: September 01, 2024 TIME: 1:15 [facility]03-12-2025 NoteHNO ID: [id number] Author: SUZANNA WATERS MA Service: ? Author Type: Dual Rate Dealer Type: Progress Notes Filed: 08/30/2024 13:24 Note Text: UA performed as ordered. Suzanna Waters [facility] 08-30-2024 History of Present illness Narrative* Suzanna Waters MA - 08/30/2024 1:21 PM EDT UA performed as ordered. Suzanna Waters MA documented in this encounterChillicothe Va Medical Center03-12-2025 NoteHNO ID: [id number] Author: ALICE PEARCE RN Service: ? Author [...] free for discharge when finished. Alice Pearce RNLakehealth [facility]03-12-2025 History of Present illness Narrative* Alice Pearce [...] finished. Alice Pearce RN documented in this encounterChillicothe Va Medical Center03-05-2025 NoteHNO ID: [id number] Author: DAISY YOON LSW Service: ? Author Type: Ball Shagger Type: Progress Notes Filed: 08/23/2024 16:37 Note Text: SW attempted to meet with Patient today. He was with a nurse at the time of the attempt. SW will try again to meet with Patient to introduce SW services and complete a psychosocial assessment. RADHA Leary Goals of Care Advance Directives are not on file.[facility]03-05-2025 History of Present illness Narrative* Daisy Yoon LSW - 08/23/2024 4:36 PM EST SW attempted to meet with Patient today. He was with a nurse at the time of the attempt. SW will try again to meet with Patient to introduce SW services and complete a psychosocial assessment. RADHA Leary Goals of Care Advance Directives are not on file. documented in this encounterChillicothe Va Medical Center03-05-2025 NoteHNO ID: [id number] Author: NYDIA LARA RN Service: ? Author [...] well. 1624- patient d/c'd home. Nydia Lara RNL[facility]03-05-2025 History of Present illness Narrative* Nydia Lara RN - 08/23/2024 4:05 PM EST 1315- Patient arrived to infusion room in stable condition. Patient's VSS, 139/81 56, 16, 97.5 F 99% RA. Collected urine for UA and sent to [place] station for POC testing. Awaiting results. Patient [...] home. Nydia Lara RN documented in this encounterChillicothe Va Medical Center03-05-2025 NoteHNO ID: [id number] Author: SANTOSH DEL RIO MA Service: ? Author Type: Dual Rate Dealer Type: Progress Notes Filed: 08/23/2024 13:29 Note Text: UA performed as ordered. Santosh Del Rio [facility]03-05-2025 History of Present illness Narrative* Santosh Del Rio MA - 08/23/2024 1:28 PM EST UA performed as ordered. Santosh Del Rio MA documented in this encounterChillicothe Va Medical Center02-26-2025 NoteHNO ID: [id number] Author: LAUREN JOHNSON, NATHALIE Service: ? Author [...] without difficulty and approx 300cc urine in bag.[facility]02-26-20[facility] History of Present illness Narrative* Lauren Johnson [...] 300cc urine in bag. documented in this encounterChillicothe Va Medical Center02-26-2025 NoteHNO ID: [id number] Author: CYDNEY HONEYCUTT MA Service: ? Author Type: Dual Rate Dealer Type: Progress Notes Filed: 08/16/2024 13:53 Note Text: Back office UA test performed. Results entered in [employer] and doctor notified. IRON [facility]02-26-[facility] History of Present illness Narrative* Cydney Honeycutt MA - 08/16/2024 1:48 PM EST Back office UA test performed. Results entered in [employer] and doctor notified. Cydney Honeycutt MA documented in this encounterChillicothe Va Medical Center02-26-2025 Instructions* Patient Instructions* Norberto Andrade MD - 08/16/2024 1:25 PM EST Treatment today and every week Ordered CT scans F/u in 4 weeks [place] encounterAndre [place] [address] History of Present illness Narrative* Norberto Andrade MD - 08/16/2024 1:00 PM EST Images from the original note were not included. PATIENT NAME: Mary Diaz CLINIC NO.: [id number] ATTENDING PHYSICIAN: Norberto Andrade MD DATE OF SERVICE: 08/16/[address] Lionel Whitney [address] [facility] [facility] [address] thank you for referring Mary Diaz for [...] atleast 1 fragment without obvious stromal invasion (desk officer). 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 Urology recommended induction [...] Take 100 mg by mouth as needed. xulehavkomu-xancgrigr-dppnejzs (TRELEGY ELLIPTA) 100-62.5-25 mcg inhalation powder Inhale [...] Range Status 07/26/2024 9.2 % Final Abs Amite Date Value Ref Range Status 07/26/2024 0.62 [...] atleast 1 fragment without obvious stromal invasion (desk officer). 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 - Urology recommended induction BCG x 6 treatments. PLAN: - Doing well - Proceed with week 3 intravesical BCG treatment today. - Tolerating well so far. - Ordered CT scans - Check CBC CMP PSA. - All his questions answered in detail - F/u in [address] Lionel Whitney [address] [place] [address] thank you for allowing me to participate in Mary Diaz care, if there are any questions or concerns please do not hesitate to contact me at the number below. I spent a total of 30 minutes on the date of the service which included preparing to see the patient, wbwh-kc-stii patient care, completing clinical documentation, obtaining and/or reviewing separately obtained history, performing a medically appropriate examination, counseling and educating the pat ient/family/caregiver, ordering medications, tests, or procedures, communicating with other HCPs (not separately reported), independently interpreting results (not separately reported), communicatingresults to the patient/family/caregiver, and care coordination (not separately reported). Norberto Andrade MD. Hematology/Medical Oncology [facility] [place] [phone] CC: documented in this encounterChillicothe Va [facility] Center02-26-2025 NoteHNO ID: [id number] Author: NORBERTO ANDRADE MD Service: ? Author Type: Physician Type: Progress Notes Filed: 08/16/2024 13:29 Note Text: PATIENT NAME: Mary Diaz CLINIC NO.: [id number] ATTENDING PHYSICIAN: Norberto Andrade MD DATE OF SERVICE: 08/16/[address] Lionel Whitney [address] [place] [address] thank you for referring Mary Diaz for [...] atleast 1 fragment without obvious stromal invasion (desk officer). 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 Urology recommended induction [...] Take 100 mg by mouth as needed. bvaakvkogzg-ptensoijp-ormlcqil (TRELEGY ELLIPTA) 100-62.5-25 mcg inhalation powder Inhale [...] No nipple change or (more content not included)...[facility]02-19-2025 NoteHNO ID: [id number] Author: ALICE PEARCE RN Service: ? Author [...] ready for discharge when dressed. Alice Pearce RNLake[facility]02-19-2025 History of Present illness Narrative* Alice Pearce [...] 1544: Pt tolerating well. documented in this encounterChillicothe Va Medical Center02-19-2025 NoteHNO ID: [id number] Author: MONSE VIDAL RN Service: ? Author [...] turn with no complaints. 1544: Pt tolerating well.[facility]02-19-2025 NoteHNO ID: [id number] Author: CYDNEY HONEYCUTT MA Service: ? Author Type: Dual Rate Dealer Type: Progress Notes Filed: 08/09/2024 13:50 Note Text: Back office UA test performed. Results entered in [employer] and doctor notified. Cydney Honeycutt [facility]02-19-2025 History of Present illness Narrative* Cydney Honeycutt MA - 08/09/2024 1:36 PM EST Back office UA test performed. Results entered in [employer] and doctor notified. Cydney Honeycutt MA documented in this encounterChillicothe Va Medical Center02-17-2025 Telephone encounter Note * Telephone [...] after hours number protocol. Ingrid Ugalde RN [facility] Work Phone: 1(198) 940-627202-17-2025 Miscellaneous Notes* Telephone Encounter - Ingrid Ugalde [...] protocol. Ingrid Ugalde RN documented in this encounterChillicothe Va Medical Center02-12-2025 NoteHNO ID: [id number] Author: KERON KELLY RN Service: ? Author [...] PSS for follow up appointments. Keron Kelly RNLake[facility]02-12-2025 History of Present illness Narrative* Keron Kelly, [...] appointments. Keron Kelly RN documented in this encounterChillicothe Va Medical Center02-12-2025 Instructions* Patient Instructions* Norberto Andrade MD - 08/02/2024 9:05 AM EST BCG treatment today and every week F/u in 2 weeks documented in [place] encounterAndre [place] [address]-12-2025 NoteHNO ID: [id number] Author: SANTOSH DEL RIO MA Service: ? Author Type: Dual Rate Dealer Type: Progress Notes Filed: 08/02/2024 08:51 Note Text: UA performed as ordered. Santosh Del Rio [facility]02-12-2025 History of Present illness Narrative* Santosh Del Rio MA - 08/02/2024 8:49 AM EST UA performed as ordered. Santosh Del Rio MA documented in this encounter[address]12-[address]25 History of Present illness Narrative* Norberto Andrade MD - 08/02/2024 8:30 AM EST Images from the original note were not included. PATIENT NAME: Mary Diaz [facility] NO.: [id number] ATTENDING PHYSICIAN: Norberto Andrade MD DATE OF SERVICE: 08/02/[address] Lionel Whitney [address] [facility] [address] thank you for referring Mary Diaz for [...] atleast 1 fragment without obvious stromal invasion (desk officer). 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 Urology recommended induction [...] Take 100 mg by mouth as needed. xtvcbhqtffy-yrtltbukg-eaeqopii (TRELEGY ELLIPTA) 100-62.5-25 mcg inhalation powder Inhale [...] Range Status 07/26/2024 9.2 % Final Abs Amite Date Value Ref Range Status 07/26/2024 0.62 [...] atleast 1 fragment without obvious stromal invasion (desk officer). 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 - Urology recommended induction BCG x 6 treatments. PLAN: - Doing well - Proceed with week 1 intravesical BCG treatment today. - Recent blood work is essentially unremarkable. - All his questions answered in detail - F/u in [address] Lionel Whitney [address] [place] [address] thank you for allowing me to participate in Mary Diaz care, if there are any questions or concerns please do not hesitate to contact me at the number below. I spent a total of 30 minutes on the date of the service which included preparing to see the patient, gvdb-wb-wmbu patient care, completing clinical documentation, obtaining and/or reviewing separately obtained history, performing a medically appropriate examination, counseling and educating the pat ient/family/caregiver, ordering medications, tests, or procedures, communicating with other HCPs (not separately reported), independently interpreting results (not separately reported), communicatingresults to the patient/family/caregiver, and care coordination (not separately reported). Norberto Andrade MD. Hematology/Medical Oncology [facility] [place] [phone] CC: documented in this encounterChillicothe Va Medical Center02-12-2025 NoteHNO ID: [id number] Author: NORBERTO ANDRADE MD Service: ? Author Type: Physician Type: Progress Notes Filed: 08/02/2024 09:15 Note Text: PATIENT NAME: Mary Diaz [facility] NO.: [id number] ATTENDING PHYSICIAN: Norberto Andrade MD DATE OF SERVICE: 08/02/[address] Lionel Whitney [address] [facility] [address] thank you for referring Mary Diaz for [...] atleast 1 fragment without obvious stromal invasion (desk officer). 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 Urology recommended induction [...] Take 100 mg by mouth as needed. hvcqsixlxja-nredbmktd-lmphbwjj (TRELEGY ELLIPTA) 100-62.5-25 mcg inhalation powder Inhale [...] No pain to percussion (more content not included)...[facility]02-11-2025 Telephone encounter Note* Telephone Encounter - Esther Patterson - 08/01/2024 12:07 PM EST Spoke with patient over the phone today. Patient is active with [employer], LOC 80%, $0 deductible has $0 remaining, $3500 OOP has $3400 remaining. Estimate shows patient financial responsibility is $134.16 for each treatment in 2024 until oop max is reached. Patient stated understanding. Radha hurtado #[id number]. There is currently no Bladder funding available, but will add him to my wait list. [employer] completed over the phone. He was very appreciative of my phone call. [facility]02-11-2025 Miscellaneous Notes* Telephone Encounter - Esther Patterson - 08/01/2024 12:07 PM EST Spoke with patient over the phone today. Patient is active with [employer], LOC 80%, $0 deductible has $0 remaining, $3500 OOP has $3400 remaining. Estimate shows patient financial responsibility is $134.16 for each treatment in 2024 until oop max is reached. Patient stated understanding. Re bryant #[id number]. There is currently no Bladder funding available, but will add him to my wait list. Leatha completed over the phone. He was very appreciative of my phone call. documented in this encounterChillicothe Va Medical Center02-05-2025 NoteHNO ID: [id number] Author: INGRID UGALDE RN Service: ? Author [...] minutes REFERRAL (RECOMMENDATION): N/A Ingrid Ugalde RN General Internal Medicine Physician Pre Chemo Patient identified by name and date of . YES Confirmed date and time for chemotherapy ? YES Other appointments (labs, imaging) discussed? 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 YES Confirmed date and time for chemotherapy ? YES Other appointments (labs, imaging) discussed? 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 PATIENT NAME: Mary Diaz [facility] NO.: [id number] ATTENDING PHYSICIAN: Norberto Andrade MD DATE OF SERVICE: July 19, [address] Lionel Whitney [address] [facility] [address] thank you for referring Mary Diaz for [...] atleast 1 fragment without obvious stromal invasion (desk officer). 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 Urology recommended induction [...] atleast 1 fragment without obvious stromal invasion (desk officer). 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 - Urology recommended induction BCG x 6 treatments. - We will start him on weekly BCG treatments after 2 weeks from today - Check CBC CMP - All his questions answered in detail - F/u in [address] Lionel Whitney [address] [place] [facility] [address] thank you for allowing me to participate in Mary Diaz care, if there are any questions or concerns please do not hesitate to contact me at the number below. I spent a total of 60 minutes on the date of the service which included preparing to see the patient, zeai-eb-xdbh patient care, completing clinical documentation, obtaining and/or reviewing separately obtained history, performing a medically appropriate examination, counseling and educating the pat ient/family/caregiver, ordering medications, tests, or procedures, communicating with other HCPs (not separately reported), independently interpreting results (not separately reported), communicatingresults to the patient/family/caregiver, and care coordination (not separately reported). Norberto Andrade MD. Hematology/Medical Oncology [facility] [place] [phone] CC: documented in this encounterCh[facility] NoteHNO ID: [id number] Author: NORBERTO ANDRADE MD Service: ? Author Type: Physician Type: Progress Notes Filed: 07/19/2024 11:42 Note Text: PATIENT NAME: Mary Diaz [facility] NO.: [id number] ATTENDING PHYSICIAN: Norberto Andrade MD DATE OF SERVICE: July 19, [address] Lionel Whitney [address] [facility] [address] thank you for referring Mary Diaz for [...] atleast 1 fragment without obvious stromal invasion (desk officer). 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 Urology recommended induction [...] atleast 1 fragment without obvious stromal invasion (desk officer). 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 - Urology recommended induction BCG x 6 treatments. - We will start him on weekly BCG treatments after 2 weeks from today - Check CBC CMP - All his questions answered in detail - F/u in [address] Lionel Whitney [address] [place] [address] thank you for allowing me to participate in Mary Diaz [facility], if there are any questions or concerns please do not hesitate to contact me at the number below. I spent a total of 60 minutes on the date of the service which included preparing to see the patient, mmtv-kr-sguo patient care, completing clinical documentation, obtaining and/or reviewing separately obtained history, performing a medically appropriate examination, counseling and educating the patient/family/caregiver, ordering medi (more content not included)...[facility]01-27-[facility]25 History of Present illness Narrative* Cady Espinosa [...] (VOLTAREN) 75 mg, 2 times daily HYDROcodone-acetaminophen ([place]) 5-325 mg tablet 1 tablet, Daily PRN [...] Diagnosis Date Noted Bilateral carotid artery disease ([facility]) 07/17/2024 Chest pressure 07/17/2024 BMI 26.0-26.9,adult [...] of Cady Espinosa MD. documented in this encounterWVUMedicine [facility] Work Phone: 1(296) 149-536501-27-2025 Instructions* Patient Instructions* Lillie Garcia LPN - [...] Provided instructions on exercise. documented in this encounterWVUMedicine [facility] Work Phone: 1(906) 261-113001-22-2025 Hospital Discharge instructions Patient Education 07/12/2024 10:54:35 [...] cells. Follow these instructions at home: Take wzll-tjz-saolsge and prescription medicines only as told by [...] is important. Where to find more information [place] [employer] (ACS): cancer.org National Cancer Carson (NCI): cancer.gov Contact a health care provider [...] provider. Document Revised: 05/18/2022 Document Reviewed: 05/18/2022 [employer] Patient Education 2023 [employer]. Follow Up Care 05/09/2024 13:40:51 With:DEVONTE NOBLE, Lionel Burgos, URL Address: [facility] [address], [place] [address]- When: Unknown [facility] 01-22-2025 NotePatient Education Oncology Bladder Cancer [...] Follow these instructions at home: ??? Take ibpm-okw-yzohtxc and prescription medicines only as told by [...] important. Where to find more information ??? [place] [employer] Society (ACS): cancer.org ??? National Cancer Carson (NCI): cancer.gov Contact a health care provider [...] This information is n (more content not included)...[facility] 05-09-2024 Evaluation + Plan noteExtracted from:Title:Urology Progress Note Author:Lionel WHITNEY MD RDate:05/09/24 Impression and Plan Impression: #1. This gentleman seems to have a recurrence of his bladder cancer. 2. History of prostate cancer. Plan: #1. He will get scheduled for a cystoscopy and transurethral resection of bladder tumors under general endotracheal anesthesia. Future Appointments Appointment Date:07/12/2024 10:30:00 AM Scheduled Provider:Lionel WHITNEY MD Location:[facility] Appointment Type:URO Office Visit Appointment Date:10/09/2024 10:15:00 AM Scheduled Provider:Lionel WHITNEY MD Location:[facility] Appointment Type:URO Office Visit Diagnostic Tests Pending * UroVysion Fish and Urine Cyto ([facility]) 05/09/24 [facility] 11-19-2024 Hospital Discharge instructions Patient [...] Up Care 04/13/2024 11:43:40 With:Lionel WHITNEY Address: [address] [place] [address] [place] [address]- Business (1) When: Unknown Comments:Office will call to schedule follow up [facility] 11-19-2024 NoteProgress Note-Physician Patient: MARY [...] All Problems HTN (hypertension) / SNOMED CT [id number] / Confirmed Acute gouty arthritis / SNOMED CT [id number] / Confirmed lots of inflammation per pt sometimes has to get steroids History of prostate cancer / SNOMED CT 2918036209 / Confirmed History of kidney stones / SNOMED CT 4396318539 / Confirmed Impotence / SNOMED CT 5796175844 / Confirmed Bladder cancer / SNOMED CT 0320921932 / Confirmed Spondylolisthesis of cervical region / SNOMED CT 445267344 / Confirmed Chronic obstructive pulmonary disease / SNOMED CT 45788552 / Confirmed GERD (gastroesophageal reflux disease) / SNOMED CT 513024922 / Confirmed BMI 23.0-23.9, adult / SNOMED CT 1810082482 / Confirmed Personal history of colonic polyps / SNOMED CT 9054088385 / Confirmed Chronic GERD / SNOMED CT 405057317 / Confirmed Change in bowel habits / SNOMED CT 018412193 / Confirmed Iron deficiency anemia / SNOMED CT 949974892 / Confirmed Personal history of bladder cancer / SNOMED CT 3157635500 / Confirmed Shoulder impingement syndrome / SNOMED CT 126612575 / Confirmed Ecchymosis / SNOMED CT 561716488 / Confirmed left leg from españa to ankle- box with snowblower in it slipped off a cart and banged his leg. Foot pink and dry with immediate capillary refill, 4t pedal and poterior tibial pulses. Umbilical hernia / SNOMED CT 1145794960 / Confirmed Histories Past Medical History: Active HTN (hypertension) ([id number]) Acute gouty arthritis ([id number]) Comments: 08/22/2014 EST 16:07 Jannette Del Rio RN lots of inflammation per pt sometimes has to get steroids Resolved Cancer of prostate ([id number]): Resolved. Comments: 08/22/2014 EST 16:09 Jannette Del Rio RN just had a surgery done radical prostectomy at [facility] Acid reflux ([id number]): Resolved. Family History: Hypertension Father Diabetes mellitus type 2 Father Depression Sister Procedure history: Cystoscopy (1237359699) on 04/27/2023 at 73 Years. TURBT - Transurethral resection of bladder tumor (4321608456) on 01/14/2023 at 72 Years. TURBT - Transurethral resection of bladder tumor ([id number]) on 02/17/2022 at 72 Years. TURBT - Transurethral resection of bladder tumor ([id number]) on 10/29/2021 at 71 Years. Cystourethroscopy with dilation of urethral stricture (791465679) on 10/14/2021 at 71 Years. Repair of umbilical hernia (71254265) on 06/22/2017 at 67 Years. Comments: 06/22/2017 14:35 Nedra Tavares RN Umbilical hernia repair with mesh ( assisted with robot) Arthroscopy of shoulder (622540053) on 05/20/2017 at 67 Years. Comments: 05/20/2017 19:03 CASS Garcia RN, Zora Rogers LEFT SHOULDER ARTHROSCOPIC, CHONDROPLASTY,DEBRIDEMENT OF PARTIAL ROTATOR CUFF TEAR, REMOVAL RETAINED SUTURE Radical prostatectomy ([id number]) in the month of 08/2014 at 64 Years. bilateral fifth partial metatarsal osteotomies and Silver Tailor's bunionectomies on 08/29/2014 at 64 Years. Colonoscopy (004762269) in the month of 05/2014 at 64 Years. Complete repair of rotator cuff (694443686) in 2010 at 61 Years. Comments: 08/22/2014 16:14 Jannette Del Rio RN right Shoulder reconstruction (874186054) in 1998 at 49 Years. Comments: 08/22/2014 16:15 Jannette Del Rio RN left possibly a screw in there per pt Appendectomy (283152501) in 1964 at 15 Years. Arthroplasty of the ankle (2045386559). Comments: 12/30/2018 14:30 Jayne Elkins 1990 Arthroscopy of knee (418097636). Cervical vertebral fusion (25229162). Social History Social & Psychosocial Habits Alcohol 10/04/2023 Risk Assessment: Low Risk 10/04/2023 Use: Current Substance Abuse 10/04/2023 Risk Assessment: Denies Substance Abuse Tobacco 10/04/2023 Risk Asse (more content not included)...[facility] Comment on above:Result Comment: Electronically Signed By: DEVONTE NOBLE, Lionel Ernandez\Date and Time Signed: 05/09/24 09:50 [id number] NotePatient Education Custom Cystoscopy ??? Voiding after [...] if you have a fever over 100 degrees.[facility] 05-08-2024 NoteNormal sinus rhythm 67 bpm left axis deviation incomplete right bundle branch block poor R wave progression. No comparison EKG.[id number] History of Present illness Narrative* Cady Espinosa MD - 05/08/2024 11:15 AM EST Referred by Dr. Alex Monterroso for New Patient Visit (Bnlohkrt-Euurnt-Obhdmsmmxpul) History Of Present Illness: Mary Diaz is [...] (VOLTAREN) 75 mg, 2 times daily HYDROcodone-acetaminophen ([place]) 5-325 mg tablet 1 tablet, Daily PRN [...] further questions arise, Sincerely, Cady Espinosa MD [facility] Provider Attestation - Scribe documentation All medical record entries made by the Scribe were at my direction and personally dictated by me. Ihalcides reviewed the chart and agree that the record accurately reflects my personal performance of the history, physical exam, discussion and plan. documented in this encounterWVUMedicine [facility] Work Phone: 1(975) 772-559311-18-2024 Instructions* Patient Instructions* Ella Cruz RN - [...] Provided instructions on exercise. documented in this encounterWVUMedicine [facility] Work Phone: 1(792) 960-694805-07-2024 Hospital Discharge instructions Patient Education 10/26/2023 11:58:55 [...] Care 09/29/2023 09:06:13 With:Lionel DEVONTE Address: [address] [place], [place] [id number] Business (1) When: Unknown Comments:Office will call to schedule follow up [facility]04-15-2024 Hospital Discharge instructions Patient Education [...] if anything looks unusual. Men with a qpjgjv-jvuf-vrocan risk for skin cancer may want to see a skin care technician (slurry plant operator) for an annual body check. What are the benefits of screening? Cancer screening is done to look for cancer in the very early stages, before it spreads and becomesharder to treat and before you would start to notice symptoms. Finding cancer early improves the chances of successful treatment. It may save your life. Where to find more information [place] Cancer Society: www.cancer.org Centers for Disease Control and Prevention: www.cdc.gov National Cancer Carson: www.cancer.gov Contact a health care provider if: [...] provider. Document Revised: 11/03/2021 Document Reviewed: 05/03/2020 [employer] Patient Education 2022 [employer] Follow Up Care 10/01/2022 10:55:16 With:DEVONTE NOBLE, Lionel Burgos, URL Address: [facility] [address] [place] [address]- [phone] When: Unknown Comments:1 yr w/ PSA [facility] [place] 11-07-2023 Hospital Discharge instructions Patient Education [...] [facility] [address] [place] [address]- Business (1) When: Unknown Comments:Office will call to schedule follow up [facility]07-18-2023 Hospital Discharge instructions Patient Education [...] [facility] [address] [place] [address]- Business (1) When: Unknown Comments:Office will call to schedule follow up [facility]06-15-2023 Evaluation note* Encounter Date Diagnosis [...] - M46.1) Nov,Neurogenic claudication (ICD-10 - R29.818) [employer] Other 05-04-2023 Evaluation note* Encounter Date Diagnosis [...] lumbar spine October,Neurogenic claudication (ICD-10 - R29.818) [employer] Other 04-03-2023 Hospital Discharge instructions Patient Education [...] if anything looks unusual. Men with a bfancb-hots-ajftva risk for skin cancer may want to see a skin care technician (slurry plant operator) for an annual body check. Where to find more information National Cancer Carson: https://www.cancer.gov/about-cancer/screening Centers for Disease Control and Prevention: https://www.cdc.gov/cancer/dcpc/prevention/screening.htm [place] Cancer Society: https://www.cancer.org/latest-news/0-apcfvh-yzyrsxxlr-pqbku-pkb-ica.html Contact a health care provider if: You [...] 03/04/2017 Document Revised: 02/24/2019 Document Reviewed: 03/04/2017 [employer] Patient Education 2020 [employer]. Follow Up Care 09/19/2021 11:05:08 With:DEVONTE NOBLE, Lionel Burgos, URL Address: [facility] [address] [place] [address]- When: Unknown [facility] 01-17-2023 Hospital Discharge instructions Patient [...] Address: [facility] [address] [place] [address]- [facility] (1) When: Unknown Comments:Office will call to schedule follow up [facility]09-06-2022 Hospital Discharge instructions Patient Education [...] if anything looks unusual. Men with a vmawqe-pknh-voeisc risk for skin cancer may want to see a skin care technician (slurry plant operator) for an annual body check. Where to find more information National Cancer Carson: https://www.cancer.gov/about-cancer/screening Centers for Disease Control and Prevention: https://www.cdc.gov/cancer/dcpc/prevention/screening.htm [place] Cancer Society: https://www.cancer.org/latest-news/5-crdode-kfhljrhgq-wnlbo-wce-wje.html Contact a health care provider if: You [...] 03/04/2017 Document Revised: 02/24/2019 Document Reviewed: 03/04/2017 [employer] Patient Education 2020 [employer]. Follow Up Care 02/05/2022 13:48:40 With:DEVONTE NOBLE, Lionel Burgos, URL Address: [facility] [address] , [place] [address] [phone] When: Unknown [facility] 05-24-2022 Hospital Discharge instructions Patient Education [...] WHITNEY Address: [facility] [address] [place] [address]- Business (1) When: Unknown Comments:Keep scheduled appointment [facility]05-17-2022 Hospital Discharge instructions Patient Education [...] who: Are older than age 65. Are -[place]. Are obese. Have a family history of [...] cells. Follow these instructions at home: Take lmyc-hhf-ejskhky and prescription medicines only as told by [...] 06/07/2006 Document Revised: 05/20/2018 Document Reviewed: 02/15/2017 [employer] Patient Education 2020 [employer]. Follow Up Care 10/14/2021 11:26:04 With:DEVONTE NOBLE, Lionel Burgos, URL Address: [facility] [address] , [place] [address]- When: Unknown [facility] Evaluation + Plan note Future Appointments Appointment Date:09/21/2022 09:45:00 AM Scheduled Provider:Lionel WHITNEY MD Location:[facility] [place] Appointment Type:URO Office Visit [facility] Evaluation + Plan note Future Appointments Appointment Date:03/09/2022 09:00:00 AM Scheduled Provider: Location:[facility] [place] Appointment Type:URO Nurse Visit Appointment Date:04/15/2022 09:00:00 AM Scheduled Provider: Location:[facility] [place] Appointment Type:URO Nurse Visit Appointment Date:09/21/2022 09:45:00 AM Scheduled Provider:Lionel WHITNEY MD Location:[facility] [place] Appointment Type:URO Office Visit [facility] Evaluation + Plan note Future Appointments Appointment Date:03/09/2022 09:00:00 AM Scheduled Provider: Location:[facility] [place] Appointment Type:URO Nurse Visit Appointment Date:04/15/2022 09:00:00 AM Scheduled Provider: Location:[facility] [place] Appointment Type:URO Nurse Visit Appointment Date:09/21/2022 09:45:00 AM Scheduled Provider:Lionel WHITNEY MD Location:[facility] [place] Appointment Type:URO Office Visit Diagnostic Tests Pending * [facility]rine [facility]ments Appointment Date:04/15/2022 09:00:00 AM Scheduled Provider: Location:[facility] [place] Appointment Type:URO Nurse Visit Appointment Date:09/21/2022 09:45:00 AM Scheduled Provider:Lionel WHITNEY MD Location:[facility] [place] Appointment Type:URO Office Visit [facility] evaluation + Plan note Future Appointments Appointment Date:07/20/2022 10:00:00 AM Scheduled Provider: Location:[facility] [place] Appointment Type:URO Nurse Visit Appointment Date:08/17/2022 10:00:00 AM Scheduled Provider: Location:[facility] Appointment Type:URO Nurse Visit Appointment Date:09/21/2022 09:45:00 AM Scheduled Provider:Lionel WHITNEY MD Location:[facility] Appointment Type:URO Office Visit Diagnostic Tests Pending * UroVysion FISH ([facility]) [facility]07[facility] App[facility]ments Appointment Date:08/17/2022 10:00:00 AM Scheduled Provider: Location:[facility] Appointment Type:URO Nurse Visit Appointment Date:09/21/2022 09:45:00 AM Scheduled Provider:Lionel WHITNEY MD Location:[facility] Appointment Type:URO Office Visit [facility] Evaluation + Plan note Future Appointments Appointment Date:09/22/2022 02:00:00 PM Scheduled Provider: Location:[facility] Appointment Type:Urology CALL PAT FT Appointment Date:09/29/2022 11:15:00 AM Scheduled Provider: Location:[facility] Appointment Type:Urology FT [facility] evaluation + Plan note Future Appointments Appointment Date:09/22/2022 02:00:00 PM Scheduled Provider: Location:[facility] Appointment Type:Urology CALL PAT FT Appointment Date:09/29/2022 11:15:00 AM Scheduled Provider: Location:[facility] Appointment Type:Urology FT Diagnostic Tests Pending * Urine Cytology ([facility]) 09/21/22 [facility] evaluation + Plan note Future Appointments Appointment Date:10/04/2023 10:15:00 AM Scheduled Provider:Lionel WHITNEY MD Location:[facility] Appointment Type:URO Office Visit Diagnostic Tests Pending * UroVysion Fish and Urine Cyto ([facility]) [facility] App[facility]ments Appointment Date:10/04/2023 10:15:00 AM Scheduled Provider:Lionel WHITNEY MD Location:[facility] Appointment Type:URO Office Visit General Surgery [place] Evaluation + Plan note Future Appointments Appointment Date:10/04/2023 10:15:00 AM Scheduled Provider:Lionel WHITNEY MD Location:[facility] Appointment Type:URO Office Visit Diagnostic Tests Pending * UroVysion Fish and Urine Cyto ([facility]) 04[facility]27/23 [facility] App[facility]ments Appointment Date:10/20/2023 12:00:00 PM Scheduled Provider: Location:[facility] Appointment Type:Urology CALL PAT FT Appointment Date:10/26/2023 10:00:00 AM Scheduled Provider: Location:[facility] Appointment Type:Urology FT Appointment Date:10/09/2024 10:15:00 AM Scheduled Provider:Lionel WHITNEY MD Location:[facility] Appointment Type:URO Office Visit Diagnostic Tests Pending * PSA Total 10/04/23 [facility] evaluation + Plan note Future Appointments Appointment Date:10/09/2024 10:15:00 AM Scheduled Provider:Lionel WHITNEY MD Location:[facility] Appointment Type:URO Office Visit Diagnostic Tests Pending * UroVysion Fish and Urine Cyto ([facility]) [facility]26[facility]23 [facility] App[facility]ments Appointment Date:07/12/2024 10:30:00 AM Scheduled Provider:Lionel WHITNEY MD Location:[facility] Appointment Type:URO Office Visit Appointment Date:10/09/2024 10:15:00 AM Scheduled Provider:Lionel WHITNEY MD [facility] Office Visit [facility] evaluation + Plan note Future Appointments Appointment Date:07/12/2024 10:30:00 AM Scheduled Provider:Lionel WHITNEY MD Location:[facility] [place] Appointment Type:URO Office Visit Appointment Date:10/09/2024 10:15:00 AM Scheduled Provider:Lionel WHITNEY MD Location:[facility] Appointment Type:URO Office Visit Diagnostic Tests Pending * Urine Cytology ([facility]) 05/22/24 [facility] evaluation + Plan note Future Appointments Appointment Date:10/09/2024 10:15:00 AM Scheduled Provider:Lionel WHITNEY MD [facility] Appointment Type:URO Office Visit [facility] [place] Evaluation + Plan note Future Appointments Appointment Date:02/26/2025 08:30:00 AM Scheduled Provider:Lionel WHITNEY MD Location:[facility] Appointment Type:URO Procedure 15 min Diagnostic Tests Pending * UroVysion Fish and Urine Cyto ([facility]) 10/24/24 [facility] Evaluation + Plan note Future Appointments Appointment Date:12/05/2024 10:00:00 AM Scheduled Provider:LAUREN WOODY PA-C Location:[facility] Appointment Type:URO Office Visit Appointment Date:12/12/2024 10:00:00 AM Scheduled Provider:LAUREN WOODY PA-C Location:[facility] Appointment Type:URO Office Visit Appointment Date:02/26/2025 08:30:00 AM Scheduled Provider:Lionel WHITNEY MD [facility] Appointment Type:URO Procedure 15 min [facility] evaluation + Plan note Future Appointments Appointment Date:12/12/2024 10:00:00 AM Scheduled Provider:LAUREN WOODY PA-C Location:[facility] Appointment Type:URO Office Visit Appointment Date:02/26/2025 08:30:00 AM Scheduled Provider:[facility]ionel [facility]ITNEY [facility] Procedure 15 min [facility] evaluation + Plan note Future Appointments Appointment Date:02/26/2025 08:30:00 AM Scheduled Provider:Lionel WHITNEY MD [facility] Appointment Type:URO Procedure 15 min [facility] evaluation noteNo assessment information available [facility] Work Phone: Evaluation note* Diagnosis Onset Date Resolution Status Spinal stenosis of cervical region with radiculopathy acuteSpinal stenosis of lumbar region with radiculopathyacute [facility] [place] Work Phone: Evaluation note* Diagnosis Onset Date Resolution Status Spinal stenosis of cervical region with radiculopathy acuteSpinal stenosis of lumbar region with radiculopathyacuteColonization status acuteCOPD (chronic obstructive pulmonary disease)acute [facility] Work Phone: evaluation note* Diagnosis Unequal blood [...] Medication course changed documented in this encounter [facility] Work Phone: Evaluation note* Diagnosis Left carotid bruit Unequal blood pressure in upper extremities documented in this encounter [facility] Work Phone: Evaluation note* Diagnosis Former smoker Personal history of tobacco use, presenting hazards to health Shortness of breath documented in this encounter [facility] Work Phone: Evaluation note* Diagnosis Uncontrolled [...] breath BMI 26.0-26.9,adult documented in this encounter [facility] Work Phone: Evaluation note* Diagnosis Malignant neoplasm of urinary bladder, unspecified site (HCC)- Primary documented in this encounter [facility] note* Diagnosis Malignant neoplasm of urinary bladder, unspecified site (HCC)- Primary documented in this encounter [facility] note* Diagnosis Malignant neoplasm of urinary bladder, unspecified site (HCC)- Primary documented in this encounter [facility] note* Diagnosis Malignant neoplasm of urinary bladder, unspecified site (HCC)- Primary documented in this encounter [facility] note* Diagnosis Malignant neoplasm of urinary bladder, unspecified site (HCC)- Primary documented in this encounter [facility] note* Diagnosis Malignant neoplasm of urinary bladder, unspecified site (HCC)- Primary documented in this encounter [facility] note* Diagnosis High risk medication use- Primary Encounter for long-term (current) use of other medications documented in this encounter [facility] note* Diagnosis Malignant neoplasm of urinary bladder, unspecified site (HCC)- Primary documented in this encounter [facility] note* Diagnosis High risk medication use- Primary Encounter for long-term (current) use of other medications documented in this encounter [facility] note* Diagnosis Malignant neoplasm of urinary bladder, unspecified site (HCC)- Primary documented in this encounter [facility] note* Diagnosis UTI symptoms- Primary Other symptoms involving urinary system documented in this encounter [facility] note* Diagnosis Malignant neoplasm of urinary bladder, unspecified site (HCC)- Primary documented in this encounter [facility] note* Diagnosis Malignant neoplasm of urinary bladder, unspecified site (HCC) documented in this encounter [facility] note* Diagnosis Malignant neoplasm of urinary bladder, unspecified site (HCC)- Primary documented in this encounter [facility] note* Diagnosis Malignant neoplasm of urinary bladder, unspecified site (HCC)- Primary documented in this encounter [facility] note* Diagnosis Malignant neoplasm of urinary bladder, unspecified site (HCC)- Primary documented in this encounter [facility] note* Diagnosis Chest pressure Other chest pain Shortness of breath documented in this encounter [facility] Work Phone: Evaluation note* Diagnosis Acute hip pain, left- Primary Trochanteric bursitis of left hip documented in this encounter [facility] note* Diagnosis Acute hip pain, left- Primary documented in this encounter [facility] note* Diagnosis Trochanteric bursitis of left hip- Primary Acute hip pain, left documented in this encounter [facility]* Diagnosis Malignant neoplasm of urinary bladder, unspecified site (HCC)- [facility] Trochanteric bursitis of left hip- Primary Acute hip pain, left documented in this encounter [facility] HealthcareEvaluation note* Diagnosis Neoplasm of unspecified behavior of bone, soft tissue, and skin- Primary Actinic keratosis documented in this encounter [facility] HealthcareHistory general Narrative - Reported* Type Description Date Medical History HTN Medical HistoryCANCERMedical HistorypneumoniaMedical Historyprostate cancer Surgical History2 LEFT ANKLE RECONSTRUCTIONSurgical HistoryProcedure:Lt shoulder ORIF-screw;Disease:Lt shoulder [id number] HistoryLEFT ROTATOR CUFF Surgical HistoryProcedure:Appendectomy;Disease:1964Surgical History Procedure:Arthroscopy Knee;Disease:2000Surgical HistoryRIGHT SHOULDERSurgical HistoryLEFT SHOULDERSurgical HistoryProcedure:Arthroscopy Ankle;Disease:Surgical HistoryHERNIASurgical HistoryProcedure:right shoulder arthroscopy, debridement , acromioplasty,mini open supraspinatus tendontear;Disease:Surgical History Bilateral tailors bunion [id number] HistoryPROSTECTOMYSurgical History APPENDECTOMYSurgical HistoryRight toe 4 shortened-partial excision of [id number] Surgical HistoryprostatectomySurgical HistoryRIGHT KNEE SCOPESurgical HistoryL shoulder NAE -sbs [id number] HistoryFLU X2-3 DAYS Hospitalization Historysee surg. hx. [employer] Other Hospital course Narrative No data available for this section [facility] Hospital Discharge instructions No data available for this section [facility] progress note No data available for this section [facility] Reason for visit Narrative* Imaging (Routine) - AuthorizedSpecialtyDiagnoses / ProceduresReferred By ContactReferred To ContactCardiology Diagnoses Left carotid bruit Unequal blood pressure in upper extremities Procedures Vascular US Carotid Artery Duplex Bilateral Cady Espinosa MD [address] [place] [address] Phone: tel: fax: Referral IDStatusReasonStart DateExpiration DateVisits RequestedVisits [id number] Perform Procedure [facility] Work Phone: reason for visit Narrative* CV Imaging (Routine) - AuthorizedSpecialtyDiagnoses / ProceduresReferred By ContactReferred To ContactCardiology Diagnoses Former smoker Shortness of breath Procedures Transthoracic Echo Complete AK ECHO TTHRC R-T 2D W/WOM-MODE COMPL SPEC&COLR D Cady Espinosa MD [address] [address] Phone: tel: fax: Referral IDStatusReasonStart DateExpiration DateVisits RequestedVisits [id number] Perform Procedure [facility] Work Phone: reason for visit Narrative* [place] Prior Authorization (Routine) - AuthorizedSpecialtyDiagnoses / ProceduresReferred By Contact Referred To Contact Diagnoses Malignant neoplasm of urinary bladder, unspecified site (HCC) Procedures BCG LIVE INTRAVESICAL INSTILLATION, 1 MG Norberto Andrade MD [address] [place] [address] [place] [address] Phone: tel: fax: Hematology/Oncology [address] [place] [address] [place] [address] Phone: tel: fax: Referral IDStatusReasonStart DateExpiration DateVisits RequestedVisits [id number]/5/202512/31/2025199 [facility] for visit Narrative* Cardiac Stress Testing (Routine) - AuthorizedSpecialtyDiagnoses / ProceduresReferred By ContactReferred To ContactCardiology Diagnoses Chest pressure Shortness of breath Procedures Nuclear Stress Test CHG MYOCARDIAL SPECT MULTIPLE STUDIES Cady Espinosa MD [address] [address] Phone: tel: fax: Referral IDStatusReasonStart DateExpiration DateVisits RequestedVisits [id number] Perform Procedure [facility] Work Phone: Reason for visit Narrative* Cardiac Stress Testing (Routine) - AuthorizedSpecialtyDiagnoses / ProceduresReferred By Contact Referred To ContactCardiology Diagnoses Chest pressure Shortness of breath Procedures Nuclear Stress Test CHG MYOCARDIAL SPECT MULTIPLE STUDIES Cady Espinosa MD [address] [address] Phone: tel: fax: Referral IDStatusReasonStart DateExpiration DateVisits RequestedVisits [id number] Perform Procedure [facility] Work Phone: Chief Complaint and Reason [...] Diagnosis 1 Cervical spondylosis (M47.812) Referral [facility] Referring Provider First Name Zoran Referring Provider Last Name Scott Referring Provider Specialty Neurologica l Surgery Referred Organization [facility] Referred Address [address] [place], [place],[address] Referred Provider Specialty Physical The rapist Referral Priority Routine Reason evaluate and tr eat for neck and back pain Diagnosis 1 Cervical spondylosis (M47.812) Diagnosis 2 Low back pain, unspe cified (M54.50) Referral Organization [facility] Referring Provider First Name Zorna Referring Provider Last Name Scott Referring Provider Specialty Neurologica l Surgery Referred Organization [facility] Referred Provider Raoul Soriano Referred Address [address] [place], [place],[address] Referred Provider Specialty Pain Medicin e Referral [...] 12, 2023 End: August 12, 2023Esther Lowery MEDICAL CARE EVALUATION SPECIALIST-CAttending ProviderActiveStart: August 12, 2023 End: August 12, 2023 Team Status: Active Member Role Status Shawn Monterroso MD Primary Care Provider Active Start: August 12, 2023 Esther Lowery MEDICAL CARE EVALUATION SPECIALIST-CAttending ProviderActiveStart: August 12, 2023 Team Status: Inactive Member Role Status Shawn Monterroso MD Primary Care Provider Active Start: August 28, 2023 End: August 28, 2023Esther Lowery MEDICAL CARE EVALUATION SPECIALIST-CAttending ProviderActiveStart: August 28, 2023 End: August 28, [...] MemberRelationshipSpecialtyStart DateEnd Date Deandre Monterroso MD [address] [place] [address] PCP - GeneralFamily Oxgqjqra12/18/24Team MemberRelationshipSpecialtyStart Date End Date Deandre Monterroso MD [address] [place] [address] PCP - GeneralFamily Ujepmqsq32/18/24 Team Status: Inactive Member Role Status Dates Deandre Monterroso MD Primary Care Provider Active Start: July 06, 2024 End: July 06, 2024PatricApolonia Payne ProviderActiveStart: July 06, 2024 End: July 06, 2024Team MemberRelationshipSpecialtyStart DateEnd Date Deandre Monterroso MD [address] [place] [address] [facility] Sgtspijh00/18/24Team MemberRelationshipSpecialtyStart Date End Date Lionel Whitney MD [address] [place] [address] Urolog07/18/24Team MemberRelationshipSpecialtyStart DateEnd Date Lionel Whitney MD [address] [place] [address] Urolog07/18/24Team MemberRelationshipSpecialtyStart DateEnd Date Deandre Monterroso MD [address] [place] [address] PCP - GeneralFami Medicine07/26/24 Lionel Whitney MD [address] [place] [address] Urolog07/18/24Team MemberRelationshipSpecialtyStart DateEnd Date Deandre Monterroso MD [address] [place] [address] PCP - GeneralFami Medicine07/26/24 Lionel Whitney MD [address] [place] [address] Urolog07/18/24Team MemberRelationshipSpecialtyStart DateEnd Date Deandre Monterroso MD [address] [facility] [place] [address] PCP - GeneralFamily Medicine07/26/24 Lionel Whitney MD [address] [place] [address] Urolog07/18/24Team MemberRelationshipSpecialtyStart DateEnd Date Deandre Monterroso MD [address] [facility] [place] [address] PCP - Generalmily Medicine07/26/24 Lionel Whitney MD [address] [place] [address] Urolog07/18/24Team MemberRelationshipSpecialtyStart DateEnd Date Deandre Monterroso MD [address] [facility] [place] [address] PCP - Generalmily Medicine07/26/24 Lionel Whitney MD [address] [place] [address] Urolog07/18/24Team MemberRelationshipSpecialtyStart DateEnd Date Deandre Monterroso MD [address] [place] [address] PCP - GeneralFamily Medicine07/26/24 Lionel Whitney MD [address] [place] [address] Urolog07/18/24 Ingrid Ugalde, RN [address] [facility] [place] [place] [address] Specialty Care CoordinatorHematology/Oncology08/07/24 Norberto Andrade MD [address] [facility] [place] [address] PhysicianHematology/Oncology08/07/24Team MemberRelationshipSpecialtyStart DateEnd Date Deandre Monterroso MD [address] [place] [address] PCP - [facility] Medicine07/26/24 Lionel Whitney MD [address] [place], [facility] Urolog07/18/24 Ingrid Ugalde RN [address] [facility] [place] [address] Specialty Care CoordinatorHematology/Oncology08/07/24 Norberto Andrade MD [address] [facility] [place] [address] PhysicianHematology/Oncology08/07/24Team MemberRelationshipSpecialtyStart DateEnd Date Deandre Monterroso MD [address] [place] [address] PCP - [facility] Medicine07/26/24 Lionel Whitney MD [address] [place] [address] Urolog07/18/24 Ingrid Ugalde RN [address] [place] [address] Specialty Care CoordinatorHematology/Oncology08/07/24 Norberto Andrade MD [address] [facility] [place] [address] PhysicianHematology/Oncology08/07/24Te MemberRelationshipSpecialtyStart DateEnd [facility] Deandre Monterroso MD [address] [facility] [place] [address] PCP - [facility] Medicine07/26/24 Lionel Whitney MD [address] [place], [facility] Urolog07/18/24 Ingrid Ugalde RN [address] [facility] [place] [address] Specialty Care CoordinatorHematology/Oncology08/07/24 Norberto Andrade MD [address] [facility] [place] [address] PhysicianHematology/Oncology08/07/24Te MemberRelationshipSpecialtyStart DateEnd [facility] Deandre Monterroso MD [address] [facility] [place] [address] PCP - [facility] Medicine07/26/24 Lionel Whitney MD [address] [place] [address] Urolog07/18/24 Ingrid Ugalde RN [address] [place] [address] Specialty Care CoordinatorHematology/Oncology08/07/24 Norberto Andrade MD [address] [place] [address] PhysicianHematology/Oncology08/07/24Team MemberRelationshipSpecialtyStdennehotso End [facility] Deandre Monterroso MD [facility] [place] [id number] PCP - GeneralFamily Medicine07/26/24 Lionel Whitney MD [address] [place] [address] Urolog07/18/24 Ingrid Ugalde RN [address] [place], [facility] Specialty Care CoordinatorHematology/Oncology08/07/24 Norberto Andrade MD [address] [place], [facility] PhysicianHematology/Oncology08/07/24Team MemberRelationshipSpecialtyStdennehotso DateEnd Deandre Monterroso MD [facility] [place] [id number] PCP - GeneralFamily Medicine07/26/24 Lionel Whitney MD [address] [place] [address] Urolog07/18/24 Ingrid Ugalde RN [address] [facility] [place] [address] Specialty Care CoordinatorHematology/Oncology08/07/24 Norberto Andrade MD [address] [facility] [place] [address] PhysicianHematology/Oncology08/07/24Team MemberRelationshipSpecialtyStart End Deandre Monterroso MD [address] [place] [address] PCP - GeneralFamily Medicine07/26/24 Lionel Whitney MD [address] [place] [address] Urolog07/18/24 Ingrid Ugalde RN [address] [facility] [place] [address] Specialty Care CoordinatorHematology/Oncology08/07/24 Norberto Andrade MD [address] [facility] [place] [address] PhysicianHematology/Oncology08/07/24Te MemberRelationshipSpecialtyStart DateEnd Deandre Monterroso MD [address] [place] [address] PCP - GeneralFamily Medicine07/26/24 Lionel Whitney MD [address] [place] [address] Urolog07/18/24 Ingrid Ugalde, NATHALIE [address] [facility] [place] [address] Specialty Care CoordinatorHematology/Oncology08/07/24 Norberto Andrade MD [address] [facility] [place] [address] PhysicianHematology/Oncology08/07/24Te MemberRelationshipSpecialtyStart DateEnd [facility] Deandre Monterroso MD [address] [place] [address] PCP - [facility] Medicine07/26/24 Lionel Whitney MD [address] [place] [id number] Urolog07/18/24 Ingrid Ugalde RN [address] [facility] [place] [address] Specialty Care CoordinatorHematology/Oncology08/07/24 Norberto Andrade MD [address] [facility] [place] [address] PhysicianHematology/Oncology08/07/24Te MemberRelationshipSpecialtyStart DateEnd [facility] Deandre Monterroso MD [address] [place] [address] PCP - [facility] Medicine07/26/24 Lionel Whitney MD [address] [place] [address] Urolog07/18/24 Ingrid Ugalde RN [address] [facility] [place] [address] Specialty Care CoordinatorHematology/Oncology08/07/24 Norberto Andrade MD [address] [facility] [place] [address] PhysicianHematology/Oncology08/07/24Te MemberRelationshipSpecialtyStart DateEnd [facility] Deandre Monterroso MD [address] [place] [facility] [address] PCP - GeneralFamily Pfeqrtsx40/18/24Te MemberRelationshipSpecialtyStart Date End Date Deandre Monterroso MD [address] [place] [facility] [place] [address] PCP - GeneralFamily Dyepkqam59/18/24Team MemberRelationshipSpecialtyStart Date End Date Deandre Monterroso MD [address] [place] [address] PCP - Generalmily Medicine01/07/23Team MemberRelationshipSpecialtyStart DateEnd Date Deandre Monterroso MD [address] [place] [address] PCP - GeneralFamily Medicine01/07/23Team MemberRelationshipSpecialtyStart DateEnd Date Deandre Monterroso MD [address] [place] [address] PCP - GeneralFamily Medicine07/26/24 Lionel Whitney MD Urolog07/18/24 Ingrid Ugalde RN [address] [place] [address] [address] [place], [facility] Specialty Care CoordinatorHematology/Oncology08/07/24 Norberto Andrade MD [address] [place] [address] [place], [facility] PhysicianHematology/Oncology08/07/24Team MemberRelationshipSpecialtyStart DateEnd Date Deandre Monterroso MD PCP - Generalmily Medicine01/07/23Team MemberRelationshipSpecialtyStart DateEnd Date Deandre Monterroso MD PCP - GeneralFamily Medicine01/07/23Team MemberRelationshipSpecialtyStart DateEnd Date Deandre Monterroso MD PCP - Generalmily Medicine01/07/23Team MemberRelationshipSpecialtyStart DateEnd Date Deandre Monterroso MD PCP - Generalmily Medicine01/07/23Team MemberRelationshipSpecialtyStart DateEnd Date Deandre Monterroso MD [address] [place] [address] PCP - Generalmily Medicine07/26/24 Lionel Whitney MD Urolog07/18/24 Ingrid Ugalde RN [address] [address] [place] [id number] Specialty Care CoordinatorHematology/Oncology08/07/24 Norberto Andrade MD [address] [facility] [place] [place] [address] PhysicianHematology/Oncology08/07/24Team MemberRelationshipSpecialtyStart DateEnd Deandre Monterroso MD [address] [place] [address] PCP - GeneralFamily Medicine01/10/25Team MemberRelationshipSpecialtyStart DateEnd Date Deandre Monterroso MD [address] [facility] [place] [address] [facility] - [facility]01/10/25Team MemberRelationshipSpecialtyStart DateEnd Date Deandre Monterroso MD [address] [facility] [place] [address] PCP - [facility]01/10/25Team MemberRelationshipSpecialtyStart DateEnd Date Deandre Monterroso MD [address] [place] [facility] [address] PCP - [facility]01/10/25 Goals (unrecognized section and content) Goals [...] (unrecogniz ed section and content) ReasonCommentsNew Patient NynruCfmhygen-Vttdel-ZjkmehwathatHctrtueevIxvplpapd / ProceduresReferred By ContactReferred To Contact Diagnoses Uncontrolled hypertension Shortness of breath Procedures ECG 12 Lead Cady Espinosa MD [address] [place] [address] Phone: tel: fax: Referral IDStatusReasonStart DateExpiration DateVisits RequestedVisits [id number]/18/202411/18/[id number] SpecialtyDiagnoses / ProceduresReferred By ContactReferred To ContactCardiology Diagnoses Uncontrolled hypertension Procedures Follow Up In Cardiology Cady Espinosa MD [address] [place] [address] Phone: tel: fax: Cady Espinosa MD [address] [place] [address] Phone: tel: fax: Referral IDStatusReasonStart DateExpiration DateVisits RequestedVisits [id number]/18/202411/18/287673BkadwnErpgmeubGekzasf Cancer ConsultReasonCommentsFirst Time Treatment EducationReasonCommentsBenefits InvestigationGood ,I am your Financial Navigator, Esther. I wanted to reach out and introduce myself. I welcome the opportunity to meet with you as I can answer questions related to your health plan andany expected out of pocket costs while you are in treatment.You will also find a survey attached [employer] message that can help me better serve your financial needs. You can complete this at your earliest convenience. Please feel free to stop in or call [phone] for any questions you may have.ReasonCommentsBladder CancerReason CommentsCare [id number] treatment follow up callReasonCommentsFollow Up ReasonCommentsRadiology CTSpecialtyDiagnoses / ProceduresReferred By Contact Referred To ContactCT IMAGING Diagnoses Malignant neoplasm of urinary bladder, unspecified site (HCC) Procedures CT CHEST W IVCON DIAGNOSTIC COMPUTED TOMOGRAPHY THORAX W/CONTRAST Norberto Andrade MD [address] [place] [address] [place] [address] Phone: tel: fax: [place] [address] Referral IDStatusReasonStart DateExpiration DateVisits RequestedVisits [id number] Auto-Generated Referral [id number] CancerTreatment visitReasonComments PainReasonCommentsPainReasonCommentsFollow-up (unrecognized sect ion and content) No Status Records FoundNo Status Records FoundNo Status Records FoundNo Status Records FoundNo Status Records FoundNo Status Records FoundNo Status Records FoundNo Status Records FoundNo Status Records FoundNo Status Records FoundNo Status Records FoundNo Status Records FoundNo Status Records Found INFORMATION SOURCE (unrecogn ized section and content) DATE CREATED AUTHOR 11/27/2022 [facility] DATE CREATED AUTHOR AUTHOR'S ORGANIZ ATION 05/23/2024 [facility] DATE CREATED AUTHOR AUTHOR'S ORGANIZ ATION 07/12/2024 [facility] DATE CREATED AUTHOR AUTHOR'S ORGANIZ ATION 09/26/2024 [place] DATE CREATED AUTHOR AUTHOR'S ORGANIZ ATION 12/12/2024 [facility] DATE CREATED AUTHOR AUTHOR'S ORGANIZ ATION 12/14/2024 [facility] DATE CREATED AUTHOR AUTHOR'S ORGANIZ ATION 01/07/2025 [facility] DATE CREATED AUTHOR AUTHOR'S ORGANIZ ATION 02/11/2025 [facility] DATE CREATED AUTHOR AUTHOR'S ORGANIZ ATION 02/27/2025 [facility] DATE CREATED AUTHOR AUTHOR'S ORGANIZ ATION 03/01/2025 [facility] DATE CREATED AUTHOR AUTHOR'S ORGANIZ ATION 03/05/2025 [facility] DATE CREATED AUTHOR AUTHOR'S ORGANIZ ATION 03/14/2025 [facility] Source Comments (unrecognize d section and content) In the event this informatio n is protected by the Federal Confidentiality of Alcohol and Drug Abuse Patient Records regulations: The Federal rules restrict any use of the information to criminally investigate or prosecute any alcohol or drug abuse patient.[facility] Center[facility] the event this information is protected by the Federal Confidentiality of Alcohol and Drug Abuse Patient Records regulations: The Federal rules restrict any use of the information to criminally investigate or prosecute any alcohol or drug abuse patient.[facility] CenterIn the event this information is protected by the Federal Confidentiality of Alcohol and Drug Abuse Patient Records regulations: The Federal rules restrict any use of the information to criminally investigate or prosecute any alcohol or drug abuse patient.[facility] CenterIn the event this information is protected by the Federal Confidentiality of Alcohol and Drug Abuse Patient Records regulations: The Federal rules restrict any use of the information to criminally investigate or prosecute any alcohol or drug abuse patient.[facility] CenterIn the event this information is protected by the Federal Confidentiality of Alcohol and Drug Abuse Patient Records regulations: The Federal rules restrict any use of the information to criminally investigate or prosecute any alcohol or drug abuse patient.[facility] CenterIn the event this information is protected by the Federal Confidentiality of Alcohol and Drug Abuse Patient Records regulations: The Federal rules restrict any use of the information to criminally investigate or prosecute any alcohol or drug abuse patient.[facility] CenterIn the event this information is protected by the Federal Confidentiality of Alcohol and Drug Abuse Patient Records regulations: The Federal rules restrict any use of the information to criminally investigate or prosecute any alcohol or drug abuse patient.[facility] CenterIn the event this information is protected by the Federal Confidentiality of Alcohol and Drug Abuse Patient Records regulations: The Federal rules restrict any use of the information to criminally investigate or prosecute any alcohol or drug abuse patient.[facility] CenterIn the event this information is protected by the Federal Confidentiality of Alcohol and Drug Abuse Patient Records regulations: The Federal rules restrict any use of the information to criminally investigate or prosecute any alcohol or drug abuse patient.[facility] CenterIn the event this information is protected by the Federal Confidentiality of Alcohol and Drug Abuse Patient Records regulations: The Federal rules restrict any use of the information to criminally investigate or prosecute any alcohol or drug abuse patient.[facility] CenterIn the event this information is protected by the Federal Confidentiality of Alcohol and Drug Abuse Patient Records regulations: The Federal rules restrict any use of the information to criminally investigate or prosecute any alcohol or drug abuse patient.[facility] CenterIn the event this information is protected by the Federal Confidentiality of Alcohol and Drug Abuse Patient Records regulations: The Federal rules restrict any use of the information to criminally investigate or prosecute any alcohol or drug abuse patient.[facility] CenterIn the event this information is protected by the Federal Confidentiality of Alcohol and Drug Abuse Patient Records regulations: The Federal rules restrict any use of the information to criminally investigate or prosecute any alcohol or drug abuse patient.[facility] CenterIn the event this information is protected by the Federal Confidentiality of Alcohol and Drug Abuse Patient Records regulations: The Federal rules restrict any use of the information to criminally investigate or prosecute any alcohol or drug abuse patient.[facility] CenterIn the event this information is protected by the Federal Confidentiality of Alcohol and Drug Abuse Patient Records regulations: The Federal rules restrict any use of the information to criminally investigate or prosecute any alcohol or drug abuse patient.[facility] CenterIn the event this information is protected by the Federal Confidentiality of Alcohol and Drug Abuse Patient Records regulations: The Federal rules restrict any use of the information to criminally investigate or prosecute any alcohol or drug abuse patient.[facility] CenterIn the event this information is protected by the Federal Confidentiality of Alcohol and Drug Abuse Patient Records regulations: The Federal rules restrict any use of the information to criminally investigate or prosecute any alcohol or drug abuse patient.[facility] CenterIn the event this information is protected by the Federal Confidentiality of Alcohol and Drug Abuse Patient Records regulations: The Federal rules restrict any use of the information to criminally investigate or prosecute any alcohol or drug abuse patient.[facility] CenterIn the event this information is protected by the Federal Confidentiality of Alcohol and Drug Abuse Patient Records regulations: The Federal rules restrict any use of the information to criminally investigate or prosecute any alcohol or drug abuse patient.[facility] CenterIn the event this information is protected by the Federal Confidentiality of Alcohol and Drug Abuse Patient Records regulations: The Federal rules restrict any use of the information to criminally investigate or prosecute any alcohol or drug abuse patient.[facility] CenterIn the event this information is protected by the Federal Confidentiality of Alcohol and Drug Abuse Patient Records regulations: The Federal rules restrict any use of the information to criminally investigate or prosecute any alcohol or drug abuse patient.[facility] CenterIn the event this information is protected by the Federal Confidentiality of Alcohol and Drug Abuse Patient Records regulations: The Federal rules restrict any use of the information to criminally investigate or prosecute any alcohol or drug abuse patient.[facility] CenterIn the event this information is protected by the Federal Confidentiality of Alcohol and Drug Abuse Patient Records regulations: The Federal rules restrict any use of the information to criminally investigate or prosecute any alcohol or drug abuse patient.[facility] CenterIn the event this information is protected by the Federal Confidentiality of Alcohol and Drug Abuse Patient Records regulations: The Federal rules restrict any use of the information to criminally investigate or prosecute any alcohol or drug abuse patient.[facility] CenterIn the event this information is protected by the Federal Confidentiality of Alcohol and Drug Abuse Patient Records regulations: The Federal rules restrict any use of the information to criminally investigate or prosecute any alcohol or drug abuse patient.[facility] FOR RECORDS PERTAINING TO PATIENTS [...] BE BASED ON THE PRIMARY CLINICAL RECORDS. [facility] [employer] [facility]. provides no warranty or guarantee of the accuracy or completeness of information in this document.
--- NOTE | 2025-05-31 10:02 | PM.CN ---
Consult Note: HPI Data of Consult Patient: known to practice within the last 3 years Consult date: 05/31/25 Requesting Physician: Erin Shelton NP Primary Care Provider: Deandre Staley MD Consult Narrative Reason for consult: low back and RLE pain Narrative: Ryder Durant a 75 year old male with chronic low back and leg pain presents for evaluation. 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 minimal relief with interventional therapy through orthopedics per pt. no recent falls of injury. prior lumbar MRI consistent with multilevel stenosis and facet arthropathy. Pain today 3-4/10 dull/sharp increasing to 5/10 in low back and right leg. notes increased pain with standing, walking, pushing, pulling, stairs, ADLs, and activity. utilizing robaxin, tylenol, diclofenac, and norco prn with benefit without side effects. pt considering scs trial in the future. cc:: CC: Erin Shelton NP Review of Systems ROS Musculoskeletal Reports: back pain; Denies: extremity pain PFSH PFS Medical History Bladder tumor ?D49.4 - Neoplasm of unspecified behavior of bladder (ICD-10) Carotid bruit ?R09.89 - Other specified symptoms and signs involving the circulatory and respiratory systems (ICD-10) Hip pain ?M25.559 - Pain in unspecified hip (ICD-10) High cholesterol ?E78.00 - Pure hypercholesterolemia, unspecified (ICD-10) Hypothyroidism ?E03.9 - Hypothyroidism, unspecified (ICD-10) COPD (chronic obstructive pulmonary disease) ?J44.9 - Chronic obstructive pulmonary disease, unspecified (ICD-10) Arthritis ?M19.90 - Unspecified osteoarthritis, unspecified site (ICD-10) Anemia ?D64.9 - Anemia, unspecified (ICD-10) Bladder cancer ?C67.9 - Malignant neoplasm of bladder, unspecified (ICD-10) 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 - Other specified disorders of bladder (ICD-10) Neck pain ?M54.2 - Cervicalgia (ICD-10) Low back pain ?M54.50 - Low back pain, unspecified (ICD-10) Osteoarthritis ?M19.90 - Unspecified osteoarthritis, unspecified site (ICD-10) Acid reflux ?K21.9 - Gastro-esophageal reflux disease without esophagitis (ICD-10) Hearing deficit ?H91.90 - Unspecified hearing loss, unspecified ear (ICD-10) Prostate cancer ?C61 - Malignant neoplasm of prostate (ICD-10) Former smoker ?Z87.891 - Personal history of nicotine dependence (ICD-10) Hypertension ?I10 - Essential (primary) hypertension (ICD-10) Surgical History H/O cystoscopy ?Z98.890 - Other specified postprocedural states (ICD-10) S/P epidural steroid injection ?Z92.241 - Personal history of systemic steroid therapy (ICD-10) H/O transurethral resection of bladder tumor (TURBT) ?Z98.890 - Other specified postprocedural states (ICD-10) ?Z86.03 - Personal history of neoplasm of uncertain behavior (ICD-10) History of colonoscopy ?Z98.890 - Other specified postprocedural states (ICD-10) History of arthroscopy of knee ?Z98.890 - Other specified postprocedural states (ICD-10) History of foot surgery ?Z98.890 - Other specified postprocedural states (ICD-10) History of appendectomy ?Z90.49 - Acquired absence of other specified parts of digestive tract (ICD-10) History of hernia repair ?Z98.890 - Other specified postprocedural states (ICD-10) ?Z87.19 - Personal history of other diseases of the digestive system (ICD-10) S/P cystoscopy ?Z98.890 - Other specified postprocedural states (ICD-10) H/O transurethral resection of bladder tumor (TURBT) (01/14/23) ?Z98.890 - Other specified postprocedural states (ICD-10) ?Z86.03 - Personal history of neoplasm of uncertain behavior (ICD-10) H/O transurethral resection of bladder tumor (TURBT) ?Z98.890 - Other specified postprocedural states (ICD-10) ?Z86.03 - Personal history of neoplasm of uncertain behavior (ICD-10) S/P cervical spinal fusion ?Z98.1 - Arthrodesis status (ICD-10) H/O prostatectomy ?Z90.79 - Acquired absence of other genital organ(s) (ICD-10) History of ankle surgery ?Z98.890 - Other specified postprocedural states (ICD-10) H/O shoulder surgery ?Z98.890 - Other specified postprocedural states (ICD-10) Family History Other Depression Family history of diabetes mellitus Family history of hypertension Social History Within the past year, how often did you have a drink containing alcohol: 2-4 times a month Smoking status: Former smoker Non-prescribed substance use: denies use Previous occupational history: retired Highest level of school completed/degree received: Associate degree: occupational, technical, vocational program Meds Home Medications and Allergies Home Medications ?Medication ?Instructions ?Recorded ?Confirmed ?Type fluticasone fur. 100 mcg-umeclid 1 inh inhalation DAILY 11/20/22 05/21/25 History 62.5 mcg-vilant 25 mcg inhalat.powder (Trelegy Ellipta) pantoprazole 40 mg tablet,delayed 40 mg PO DAILY 11/20/22 05/21/25 History release liothyronine 25 mcg tablet 25 mcg PO DAILY 06/27/24 05/21/25 History lisinopril 20 mg tablet 20 mg PO DAILY 06/27/24 05/21/25 History rosuvastatin 20 mg tablet 20 mg PO DAILY 06/27/24 05/21/25 History hydrocodone 5 mg-acetaminophen 325 1 tab PO DAILY PRN pain #30 tabs 09/27/24 05/21/25 Rx mg tablet ferrous sulfate 325 mg (65 mg mg PO 02/05/25 History iron) tablet,delayed release hydrocodone 5 mg-acetaminophen 325 1 tab PO DAILY PRN pain #30 tabs 04/03/25 05/21/25 Rx mg tablet methocarbamol 500 mg tablet See Rx Instructions .Route 05/03/25 05/21/25 Rx .COMPLEX #180 tabs Allergies Allergy/AdvReac Type Severity Reaction Status Date / Time codeine Allergy Unknown Hives Verified 05/21/25 09:17 oxycodone (From Percocet) AdvReac Agitated Verified 05/21/25 09:17 Exam Constitutional Documenting provider has reviewed patient's vital signs: yes Common normals: no apparent distress, oriented x3 and alert General appearance: cooperative HENMT Common normals: normocephalic, hearing grossly normal bilaterally and moist oral mucous membranes Head and scalp: normocephalic Eye Common normals: PERRL Pupil: PERRL Neck & C-Spine Common normals: full ROM General: normal visual inspection Chest Common normals: inspection of chest normal Respiratory Common normals: normal respiratory effort, no retractions and no use of accessory muscles Back & Pelvis Lumbar spine/lower back: ROM limited, pain with ROM and straight leg raise negative bilaterally Other: strength 5/5 in BLE sensation intact BLE Neuro Common normals: oriented x3 Sensorium/orientation: alert Psych Common normals: mental status grossly normal, thought process normal, cooperative, affect normal, speech normal and activity/motor behavior normal Speech: normal speech Thought process: normal thought process Results Additional Findings Additional findings: If on a controlled substance or opioids, I have checked an [place] report on this patient and there are no aberrancies noted in the prescribing history.??If on a controlled substance or opioid a drug screen was completed and reviewed within the last year, and if there has not been a drug screen completed we ordered one today to monitor higher risk, state monitored pain medication use. As part of providing excellent, safe, comprehensive care, the following was completed at our patient's visit: 1. A medication reconciliation and review to ensure accurate knowledge of current/active medications, including asking our patients to inform us about any [id number] medications or herbal remedies/nutritional supplements/alternative remedies. 2. A review to specifically ensure our patients have had annual screening for screening for depression, screening for tobacco use, and screening for unhealthy alcohol use. For concerning screenings had a discussion with the patient, provided patient education, and recommended follow-up with primary care provider when appropriate. If patient noted with a risk of falling, they received education on strength, gait, and balance training to prevent future risk of falling. Portions of this note may have been carried over from the previous visit and updated as appropriate. Please note this office utilizes paper charting in addition to the electronic medical record. A list of current medications, vitals, and PMH is available there as the clinical staff outside of myself do not have access to [facility] charting during the clinic day operations. As part of providing quality comprehensive care the current medications, vitals, and PMH were reviewed in the paper chart. Assessment and Plan Assessment and Plan (1) Lumbar stenosis with neurogenic claudication: (2) Lumbar radiculopathy: (3) Chronic prescription opiate use: Assessment and Plan: I feel these medications are improving the patient's quality of life and allow them to tolerate activities of daily living as well as participate in recreational activity.? The patient does not report intolerable side effects. The patient is NOT opioid naive and non-pharmacologic and non-opioid treatment has failed to significantly relieve the patient's pain and improve functionality. The patient has a diagnosis that is related to a somatic or visceral pain etiology. ? ?? I reviewed with the patient the potential risks and side effects with the use of? opioid medications including but not limited to respiratory depression,? sedation, and even . Within the last 12 months I have verified the patient has access to naloxone should? these effects occur. The patient was advised to let? their family know they had Naloxone in case they would need to administer? the medication. I advised the patient to avoid the use of any other? sedation substances including alcohol, THC, and benzodiazepines while? taking opioid medications due to the risk of compounding side effects and? detrimental outcomes. within the last 12 months I have reviewed the [employer], pain treatment agreement and urine drug screen.? ?? A drug screen was completed within the last year, and no aberrancies were noted regarding their use of controlled substances. The patient understands they are subject to the terms and conditions of the pain contract that they have signed. ? ?? I have checked an OAR[place] report on this patient today and there are no aberrancies noted in the prescribing history.? Plan The patient has had over 3 months of moderate to severe low back and LE pain with functional impairment and inadequate response to conservative care including NSAIDS (unless there are contraindication such as concurrent blood thinners), multiple oral or topical pain medications, and home exercise program/physical therapy.? Patient has completed >6 weeks of guided home exercise program and/or formal physical therapy program without relief of their symptoms.? I have reviewed the imaging of the lumbar spine and no red flags were identified.? The imaging reveals radiographic findings consistent with lumbar stenosis with NC and lumbar radiculopathy continue norco 5-325mg daily prn moderate to severe pain 30 tabs to last at least 1 month change robaxin 500-1000mg daily as needed pain/spasms continue f/u with ns as planned, lumbar mri reviewed with pt patient has no additional questions regarding scs trial at this time, not interested at this time f/u 3 months, sooner if needed
== END 2025-05-31 09:31 | disposition home or self-care (01) ==
LOC: PM 09:31
PROVIDERS: PCP Family Medicine; Visit Provider Nurse Practitioner
DX: M48.062 Spinal stenosis, lumbar region with neurogenic claudication (principal); M54.16 Radiculopathy, lumbar region; Z79.891 Long term (current) use of opiate analgesic
CPT/HCPCS: G0463

== ENCOUNTER 2025-06-18 10:46 | Outpatient (RCR) | payer MEDICARE, SELFPAY ==
[2025-06-04 11:00] VITALS: BP 170/90; PULSE 68; TEMP 36.1; O2SAT 97
--- NOTE | 2025-06-04 11:03 | PC.NURSE ---
Procedure explained, patient verbalizes understanding. Written consent obtained.
[2025-06-04] MEDS: LIDOCAINE 2% JELLY 10 ML UR (11:05)
[2025-06-04] MEDS: GEMCITABINE HCL 2,000 MG in 0.9 % SODIUM CHLORIDE 50 ML 102.6 MG INTRAVESIC (11:15)
--- NOTE | 2025-06-04 11:25 | PC.NURSE ---
1125 gemcitabine instilled as ordered. patient positioned on back for 1st 15 mins
--- NOTE | 2025-06-04 12:29 | PC.NURSE ---
1140 repostioned to rt side, tolerating well 1155 repositioned to abdomen, tolerated well 1210 repositioned to rt side 1225 repositoned to left side. tolerating well.
--- NOTE | 2025-06-04 13:48 | PC.NURSE ---
1240 repositioned to back. tolerating well, states is feeling some pressure or need to urinate but not too bad. 1255 repositioned to left side, tolerating well. 1310 positioned prone offering no complaints. 1330 patient positioned to left side, muhammad catheter unclamped and allowed to drain, drained approx 250 ml of clear urine, balloon deflated, muhammad dc'd. patient provided srikanth care per self, dressed self. Instructed on precautions to take with bathroom use as well as sexual activity for next 48 hours. verbalizes understanding.
[2025-06-11 10:51] VITALS: BP 171/77; PULSE 71; TEMP 36.3; O2SAT 9
[2025-06-11] MEDS: LIDOCAINE 2% JELLY 10 ML UR (10:55)
[2025-06-11] MEDS: GEMCITABINE HCL 2,000 MG in 0.9 % SODIUM CHLORIDE 50 ML 102.6 MG INTRAVESIC (11:26)
--- NOTE | 2025-06-11 11:35 | PC.NURSE ---
1126: Mills catheter drainage bag disconnected, bladder instilled with Gemcitabine 2000mg. Mills cath plugged. Instructed pt to turn side to side and front to back every 15 min for 60-90 mins as tolerated. Pt. relays understanding.
--- NOTE | 2025-06-11 11:51 | PC.NURSE ---
1150: Tolerating treatment without c/o. Turning as instructed.
--- NOTE | 2025-06-11 12:18 | PC.NURSE ---
1219: Pt. cont. to deny c/o.
[2025-06-18 10:50] VITALS: BP 176/80; PULSE 75; TEMP 36.5; O2SAT 96
[2025-06-18] MEDS: LIDOCAINE 2% JELLY 10 ML UR (11:09)
[2025-06-18] MEDS: GEMCITABINE HCL 2,000 MG in 0.9 % SODIUM CHLORIDE 50 ML 102.6 MG INTRAVESIC (11:14)
--- NOTE | 2025-06-18 11:25 | PC.NURSE ---
1125 Gemcitabine instilled via muhammad catheter, tolerated well. patient educated on timing schedule patient starts on back.
--- NOTE | 2025-06-18 11:50 | PC.NURSE ---
1140 repositioned to left side, tolerating well
--- NOTE | 2025-06-18 11:57 | PC.NURSE ---
1155 repositioned to abdomen
--- NOTE | 2025-06-18 12:52 | PC.NURSE ---
1210 repositioned to right side.
--- NOTE | 2025-06-18 12:53 | PC.NURSE ---
1225 repostiioned to back. tolerating well
--- NOTE | 2025-06-18 12:53 | PC.NURSE ---
1240 repositioned to rt side. tolerating well.
--- NOTE | 2025-06-18 13:10 | PC.NURSE ---
muhammad catheter unclamped allowed to empty bladder approx 150ml. balloon deflated, muhammad dc'd. patient tolerated well. patient dressed released ambulatory. tolerated well.
== END 2025-06-20 23:59 | disposition home or self-care (01) ==
LOC: INF 10:46
PROVIDERS: PCP Family Medicine; Visit Provider Urology
DX: C67.9 Malignant neoplasm of bladder, unspecified (principal)
CPT/HCPCS: 51720; J9201